=== PATIENT | female | born 1955 | race Caucasian/White ===

== ENCOUNTER 2016-10-07 16:45 | Emergency (ER) | payer OTHER ==
[~2016-10-07] VITALS: Ht 162.6 cm; Wt 85.0 kg
[~2016-10-07 16:45] MED LIST: ACET-1256 PO; ALBU0.08 NEB; CHOL100010 PO; CLC100X PO; FLNIN/ NAE; NVLGI/PEN SQ; Spiriva INH
[2016-10-07 16:53] VITALS: TEMP 36.7; Ht 162.6 cm; Wt 85.0 kg
--- NOTE | 2016-10-07 18:41 | DIAGNOSTIC IMAGING REPORT ---
ULTRASOUND RIGHT LOWER EXTREMITY VENOUS CLINICAL HISTORY: Right leg pain and swelling. COMPARISON STUDY: Right lower extremity venous ultrasound dated 04/18/2016. TECHNIQUE: Real-time, grayscale, and color Doppler sonography of the deep veins of the right lower extremity was performed from the inguinal crease to the calf. Compression and augmentation were utilized. FINDINGS: There is no sonographic evidence of deep venous thrombosis identified in the right lower extremity. The common femoral, superficial femoral, and popliteal veins are patent and normally compressible. The greater saphenous vein and the profunda femoris vein at the junction with the common femoral vein are clear. The visualized calf veins are patent. IMPRESSION: There is no sonographic evidence of deep venous thrombosis identified in the right lower extremity. Electronically signed by: Jame Batres M.D. 10/07/2016 6:39 PM Dictated Date/Time: 10/07/2016 6:38 PM
[2016-10-07 19:10] VITALS: BP 121/71; PULSE 78; O2SAT 95
--- NOTE | 2016-10-07 22:34 | EMERGENCY ROOM VISIT NOTE ---
History First contact with patient: 17:46 Chief Complaint: LEG PAIN,LEG INJURY Stated Complaint: PAIN IN LEG, LUMP History of Present Illness The patient is a 60 year old female who presents to the Emergency Room with complaints of pain in her right leg for the past 4 days. The patient feels like she has a lump behind her knee. She did not have injury or trauma to explain her symptoms. She is able to walk with a walker, which is normal for her. She does not have fever or chills. No chest pain or shortness of breath. She is on Coumadin for a history of heart issues. She does not know her INR. Her next appointment is in 2 days to have it rechecked. She does not have other complaints at rates her discomfort a 10/10. The patient is on fentanyl chronically at home. She additionally has oxycodone for breakthrough pain, which she states she has run out of. Review of Systems More than 10 systems were reviewed and otherwise negative with the exception of history of present illness. Past Medical/Surgical History Medical Problems: (1) Acute electrocardiogram changes (2) Asthma (3) Atrial fibrillation (4) Bipolar disorder (5) C. difficile colitis (6) Chronic abdominal pain (7) Chronic cor pulmonale (8) Chronic pain (9) Chronic respiratory failure (10) COPD, severe (11) Depression (12) DM type 2 (diabetes mellitus, type 2) (13) DVT (deep venous thrombosis) (14) Gastroparesis (15) GERD (gastroesophageal reflux disease) (16) HTN (hypertension) (17) Hypokalemia (18) Hypothyroidism (19) [place] toxicity (20) DARIUS on CPAP (21) Osteoarthritis Surgical Problems: (1) H/O: hysterectomy (2) Hx of appendectomy (3) Hx of cholecystectomy (4) Hx of lumpectomy (5) Hx of mitral valve repair (6) Hx of tubal ligation (7) Hx of umbilical hernia repair Family History Diabetes mellitus MOTHER FH: Crohn's disease SISTER Hypertension MOTHER Social History Smoking Status: Current Every Day Smoker Alcohol Use: none Drug Use: none Marital Status: Housing Status: lives with significant other Occupation Status: disabled Current/Historical Medications Scheduled Amitriptyline HCl (Amitriptyline HCl), 50 MG PO HS Amlodipine Besylate (Amlodipine Besylate), 10 MG PO QAM Atorvastatin (Atorvastatin Calcium), 40 MG PO HS Calcitriol (Calcitriol), 0.5 MCG PO QAM Cetirizine (Zyrtec), 10 MG PO QAM Cholecalciferol (Vitamin D), 1,000 INTER.UNIT PO QAM Colestipol HCl (Colestid), 1 GM PO BID Fentanyl (Duragesic), 1 PATCH TOP CQ72HR Fluticasone Prop/Salmeterol (Advair Diskus 250/50 60 Dose), 1 PUFF INH BID Fluticasone Propionate (Fluticasone Propionate), 2 SPRAYS RICH DAILY Furosemide (Furosemide), 40 MG PO BID Gabapentin (Gabapentin), 800 MG PO TID Insulin Aspart (Novolog Flexpen), 4 UNITS SQ AC Insulin Glargine (Lantus Solostar), 30 UNITS SC BID Levothyroxine Sodium (Synthroid), 50 MCG PO QAM Metoclopramide Hcl (Metoclopramide Hcl), 5 MG PO ACHS Metolazone (Zaroxolyn), 2.5 MG PO DAILY Metoprolol Tartrate (Lopressor) (Lopressor), 75 MG PO BID Multiple Vitamin (Multivitamin), 1 TAB PO QAM Mupirocin (Bactroban), 1 APPLN TOP BID Olanzapine (Olanzapine), 2.5 MG PO HS Oxygen (Oxygen), 3 LITERS NA CONTINOUS Pantoprazole (Pantoprazole Sodium), 40 MG PO HS Potassium Chloride Microencaps (Potassium Chloride Cr), 20 MEQ PO BID Ranitidine Hcl (Zantac), 300 MG PO HS Trazodone HCl (Trazodone HCl), 300 MG PO HS Venlafaxine Hcl (Effexor Extended Rel), 225 MG PO QAM Warfarin Sodium (Warfarin Sodium), 5 MG PO 6XWK Warfarin Sodium (Warfarin Sodium), 7.5 MG PO WK [Spiriva], 1 PUFF INH QAM Scheduled PRN Acetaminophen (Tylenol), 1,000 MG PO TID PRN for Pain Albuterol Soln (Proventil 0.083% 2.5MG/3ML), 2.5 MG NEB Q6H PRN for Wheezing Diphenoxylate/Atropine (Lomotil 2.5-0.025 mg), 1 TAB PO UD PRN for Diarrhea Docusate Sodium (Colace), 100 MG PO BID PRN for Constipation Epinephrine (Epipen), 0.3 MG IM UD PRN for ALLERGIC REACTION Hydroxyzine Pamoate (Vistaril), 25 MG PO Q6H PRN for Itching Loperamide Hcl (Imodium), 2 MG PO BID PRN for Loose Stool(s) Lorazepam (Lorazepam), 0.5 MG PO HS PRN for Anxiety Methocarbamol (Methocarbamol), 500 MG PO TID PRN for Muscle Relaxer Ondansetron (Ondansetron HCl), 8 MG PO BID PRN for Nausea Oxycodone HCl (Oxycodone HCl), 10 MG PO Q6H PRN for Pain Allergies Coded Allergies: BEE STING (Verified Allergy, Severe, SWELLING, 07/31/16) Lisinopril (Verified Allergy, Intermediate, FACE SWELLING, 07/31/16) Metronidazole (Verified Allergy, Mild, FACE SWELLING, 07/31/16) [place] (Verified Allergy, Mild, HIVES, 07/31/16) Alprazolam (Verified Allergy, Unknown, RED FACE, FACE SWELLING, 07/31/16) Lactose (Verified Adverse Reaction, Intermediate, VOMTING DIARRHEA ABDOMINAL PAIN, 07/31/16) Prednisone (Verified Adverse Reaction, Mild, unknown, 07/31/16) Colesevelam (Verified Adverse Reaction, Unknown, unknown, 07/31/16) [place] (Unverified Adverse Reaction, Unknown, jitters, 07/31/16) Uncoded Allergies: BBQ CHIPS (Allergy, Unknown, FACE SWELLING, 12/22/15) Physical Exam Vital Signs Date Time Temp Pulse Resp B/P Pulse Ox O2 Delivery O2 Flow Rate FiO2 10/07/16 19:10 78 121/71 95 10/07/16 16:53 36.7 70 18 129/74 91 Room Air Pain Rating (0-10): 3.0 Physical Exam VITALS: Vitals are noted on the nurse's note and reviewed by myself. Vital signs stable. GENERAL: Well-developed, well-nourished, white female, who is in no acute distress and resting comfortably. Patient is cooperative with the examination. HEAD: Normocephalic atraumatic. HEART: Regular rate and rhythm without murmurs gallops or rubs. LUNGS: Clear to auscultation bilaterally without wheezes, rales or rhonchi. No retractions or accessory muscle use. MUSCULOSKELETAL: No muscle atrophy, erythema, or edema noted. Mild tenderness is appreciated throughout the posterior aspect of the right leg. No palpable cord. Negative Homans sign. No significant edema noted. NEURO: Patient was alert and oriented to person place and time. CN II through XII grossly intact. Medical Decision & Procedures ER Provider Diagnostic Interpretation: ULTRASOUND RIGHT LOWER EXTREMITY VENOUS CLINICAL HISTORY: Right leg pain and swelling. COMPARISON STUDY: Right lower extremity venous ultrasound dated 04/18/2016. TECHNIQUE: Real-time, grayscale, and color Doppler sonography of the deep veins of the right lower extremity was performed from the inguinal crease to the calf. Compression and augmentation were utilized. FINDINGS: There is no sonographic evidence of deep venous thrombosis identified in the right lower extremity. The common femoral, superficial femoral, and popliteal veins are patent and normally compressible. The greater saphenous vein and the profunda femoris vein at the junction with the common femoral vein are clear. The visualized calf veins are patent. IMPRESSION: There is no sonographic evidence of deep venous thrombosis identified in the right lower extremity. ED Course Physical exam and history were performed. Nursing notes and EMR were reviewed. Patient appears to have right leg pain for the past several days. The patient does not appear toxic on exam. The patient is well-known to this facility and is on a treatment plan. Her primary concern today is for pain control and concern for DVT. She is without other significant symptoms. Ultrasound was ordered and does not show evidence of acute DVT. I discussed options of care with the patient. She does not have a DVT on ultrasound, and really is without other significant findings. I suspect much of her discomfort is chronic or musculoskeletal. The patient is on both fentanyl and oxycodone at home. I do not feel comfortable providing her additional narcotic medication without objective findings. I offered her Tylenol, and she declined. Overall the patient appears stable for discharge home. She does have an upcoming appointment in 2 days in her PCPs office, and needs to keep this appointment. She was otherwise invited back to the ER with any new, worsening, or concerning symptoms. The chart was completed utilizing [employer] Voice Recognition Software. Grammatical errors, random word insertions, pronoun errors, and incomplete sentences are an occasional consequence of this system due to software limitations, ambient noise, and hardware issues. Any formal questions or concerns about the content, text, or information contained within the body of this dictation should be directly addressed to the provider for clarification. . Medical Decision Differential diagnosis: Etiologies such as DVT, musculoskeletal, infection, joint effusion, trauma, lymphedema, idiopathic, CHF, as well as others were entertained.. Impression Primary Impression: Right leg pain Departure Information Dispostion Home / Self-Care Condition GOOD Forms HOME CARE DOCUMENTATION FORM, IMPORTANT VISIT INFORMATION Patient Instructions My [facility] Additional Instructions You were seen and evaluated today on an emergency basis only. This is not a substitute for, or an effort to provide, complete comprehensive medical care. It is not possible to recognize and treat all injuries or illnesses in a single emergency department visit. For this reason it is recommended that you followup with your primary care physician's office in the next 1-2 days for recheck of your condition. Continue your home medications as prescribed. You may take Tylenol 1000 mg every 6 hours for additional relief of pain. You are welcome to return to the emergency department anytime with new, worsening, or concerning symptoms.
[2017-02-10] MEDS ORDERED: MUPI2OIN9 TOP (09:22)
[2017-02-10] MEDS ORDERED: DPH/ PO (13:11)
[2017-02-10] MEDS ORDERED: HYDR25CA PO (14:44)
[2017-02-10] MEDS ORDERED: PRT/40 PO (15:43)
[2017-02-10] MEDS ORDERED: POTA10TA79 PO (16:01)
[2017-02-10] MEDS ORDERED: CALC0.5C17 PO (16:01)
[2017-02-10] MEDS ORDERED: ATV5X PO (16:07)
[2017-02-10] MEDS ORDERED: METO5TAB2 PO (16:07)
[2017-04-10] MEDS ORDERED: PRD20 PO (14:27)
[2017-04-10] MEDS ORDERED: PRT/40 PO (14:27)
[2017-04-10] MEDS ORDERED: NVLGIPEN SC (14:27)
[2017-04-10] MEDS ORDERED: DXY100 PO (14:27)
[2017-04-10] MEDS ORDERED: INSDGIPEN SC (14:27)
[2017-04-20] MEDS ORDERED: INSDGIPEN SC (15:50)
[2017-04-23] MEDS ORDERED: FURO-85 PO (14:29)
[2017-04-23] MEDS ORDERED: PRD20 PO (14:30)
[2017-04-23] MEDS ORDERED: DXY100 PO (14:30)
[2017-04-23] MEDS ORDERED: POTA10TA79 PO (14:30)
[2017-05-03] MEDS ORDERED: GUAI1TAB68 PO (16:30)
[2017-05-03] MEDS ORDERED: ATRINS INH (16:30)
[2017-05-03] MEDS ORDERED: XPNINS1255 INH (16:30)
[2017-05-03] MEDS ORDERED: PRD20 PO (16:54)
[2017-05-03] MEDS ORDERED: NVLGIPEN SC (16:54)
[2017-05-03] MEDS ORDERED: INSDGIPEN SC (16:54)
[2017-05-05] MEDS ORDERED: LEVO50TA PO (13:11)
== END 2016-10-07 19:05 | disposition home or self-care (01) ==
LOC: C.EDB 16:46 → C.EDA 19:05
DX: M79.604 Pain in right leg (principal); J45.909 Unspecified asthma, uncomplicated; I48.91 Unspecified atrial fibrillation; F31.9 Bipolar disorder, unspecified; J44.9 Chronic obstructive pulmonary disease, unspecified; K21.9 Gastro-esophageal reflux disease without esophagitis; I10 Essential (primary) hypertension; F17.200 Nicotine dependence, unspecified, uncomplicated; E03.9 Hypothyroidism, unspecified; Z79.01 Long term (current) use of anticoagulants

== ENCOUNTER 2016-10-18 21:04 | Emergency (ER) | payer OTHER ==
[~2016-10-18] VITALS: Ht 162.6 cm; Wt 87.0 kg
[2016-10-18 21:12] VITALS: TEMP 37.2; Ht 162.6 cm; Wt 87.0 kg
[2016-10-18] MEDS ORDERED: KETOROLAC TROMETHAMINE 30 MG/ML VIAL IV STA (21:26)
[2016-10-18] MEDS ORDERED: SODIUM CHLORIDE 0.9% 1000ML 1,000 ML IV STA (21:26)
[2016-10-18] MEDS ORDERED: ONDANSETRON INJ 2 MG/ML 2 ML VIAL IV STA (21:26)
[2016-10-18 21:55] LABS: BASO % 0.3 %; BASO ABS # 0.02 K/uL (0-0.2); COMPLETE YES; EOS % 3.3 %; HEMATOCRIT 38.1 % (37-47); IG% 0.1 %; LYMPH % 25.6 %; LYMPH ABS # 1.93 K/uL (1.2-3.4); MEAN CELL VOLUME 89.9 fL (80-100); MEAN CORPUSCULAR HEMOGLOBIN 30.7 pg (25-34); MEAN CORPUSCULAR HGB CONC 34.1 g/dl (32-36); MEAN PLATELET VOLUME 10.6 fL (7.4-10.4); MONO % 11.4 %; NEUT % 59.3 %; PLATELET COUNT 238 K/uL (130-400); RED BLOOD COUNT 4.24 M/uL (4.2-5.4); WHITE BLOOD COUNT 7.54 K/uL (4.8-10.8)
[2016-10-18 22:08] LABS: URINE APPEARANCE CLEAR (CLEAR); URINE BILIRUBIN NEG (NEG); URINE COLOR YELLOW; URINE NITRITE NEG (NEG); UROBILINOGEN NEG (NEG); ZZUR CULT IF INDIC CLEAN CATCH NO
[2016-10-18 22:11] LABS: MANUAL MICROSCOPIC REQUIRED? NO; REVIEW REQ? YES
[2016-10-18 22:14] LABS: ALKALINE PHOSPHATASE 73 U/L (45-117); ALT/SGPT 30 U/L (12-78); AST/SGOT 18 U/L (15-37); BLOOD UREA NITROGEN 18 mg/dl (7-18); BUN/CREATININE RATIO 13.6 (10-20); CARBON DIOXIDE 30 mmol/L (21-32); CHLORIDE 95 mmol/L (98-107); POTASSIUM 3.8 mmol/L (3.5-5.1); SODIUM 134 mmol/L (136-145)
[2016-10-18 22:15] LABS: GLUCOSE 357 mg/dl (70-99)
[2016-10-18] MEDS ORDERED: NovoLIN-R INSULIN PER UNIT CHARGE SC STA (22:22)
[2016-10-18 22:31] LABS: URINE EPITHELIAL CELL AUTO 20-30 /lpf (0-5)
[2016-10-18 22:44] LABS: BETA-HYDROXYBUTYRATE 0.81 mg/dL (0.2-2.81)
[2016-10-18 23:15] VITALS: BP 133/45; PULSE 71; O2SAT 93
--- NOTE | 2016-10-19 00:49 | EMERGENCY ROOM VISIT NOTE ---
History Report prepared by [place]: Tigre Parnell Under the Supervision of: Dr. Fabricio Sesay D.O. First contact with patient: 21:11 Chief Complaint: BACK PAIN Stated Complaint: FLANK PAIN History of Present Illness The patient is a 61 year old female who presents to the Emergency Room with complaints of worsening burning with urination that began this morning, several hours prior to arrival. The patient has had multiple urinary tract infections in the past, and notes that her burning with urination is similar to what she has experienced in the past. The patient is also complaining of worsening lower back and right hip pain that she has had chronically for 10 years. She states that her pain today is significantly worse. She denies any weakness or numbness in her legs. She is on 3 L of home oxygen. The patient denies headache, change in vision, fevers, chest pain, shortness of breath, nausea, vomiting, diarrhea, and melena. 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 A total of 10 systems reviewed and were otherwise negative. Past Medical & Surgical Medical Problems: (1) Acute electrocardiogram changes (2) Asthma (3) Atrial fibrillation (4) Bipolar disorder (5) C. difficile colitis (6) Chronic abdominal pain (7) Chronic cor pulmonale (8) Chronic pain (9) Chronic respiratory failure (10) COPD, severe (11) Depression (12) DM type 2 (diabetes mellitus, type 2) (13) DVT (deep venous thrombosis) (14) Gastroparesis (15) GERD (gastroesophageal reflux disease) (16) HTN (hypertension) (17) Hypokalemia (18) Hypothyroidism (19) [place] toxicity (20) DARIUS on CPAP (21) Osteoarthritis Surgical Problems: (1) H/O: hysterectomy (2) Hx of appendectomy (3) Hx of cholecystectomy (4) Hx of lumpectomy (5) Hx of mitral valve repair (6) Hx of tubal ligation (7) Hx of umbilical hernia repair Family History Diabetes mellitus MOTHER FH: Crohn's disease SISTER Hypertension MOTHER Social History Smoking Status: Current Every Day Smoker Alcohol Use: none Drug Use: none Marital Status: Housing Status: lives with significant other Occupation Status: disabled Current/Historical Medications Scheduled Amitriptyline HCl (Amitriptyline HCl), 50 MG PO HS Amlodipine Besylate (Amlodipine Besylate), 10 MG PO QAM Atorvastatin (Atorvastatin Calcium), 40 MG PO HS Calcitriol (Calcitriol), 0.5 MCG PO QAM Cetirizine (Zyrtec), 10 MG PO QAM Cholecalciferol (Vitamin D), 1,000 UNIT PO DAILY Colestipol HCl (Colestid), 1 GM PO BID Fentanyl (Duragesic), 1 PATCH TOP CQ72HR Fluticasone Prop/Salmeterol (Advair Diskus 250/50 60 Dose), 1 PUFF INH BID Furosemide (Furosemide), 40 MG PO BID Gabapentin (Gabapentin), 800 MG PO TID Insulin Glargine (Lantus Solostar), 40 UNITS SC BID Levothyroxine Sodium (Synthroid), 50 MCG PO QAM Metoclopramide Hcl (Metoclopramide Hcl), 5 MG PO ACHS Metolazone (Zaroxolyn), 2.5 MG PO DAILY Metoprolol Tartrate (Lopressor) (Lopressor), 75 MG PO BID Multiple Vitamin (Multivitamin), 1 TAB PO QAM Mupirocin (Bactroban), 1 APPLN TOP BID Olanzapine (Olanzapine), 2.5 MG PO HS Oxygen (Oxygen), 3 LITERS NA CONTINOUS Pantoprazole (Pantoprazole Sodium), 40 MG PO HS Potassium Chloride Microencaps (Potassium Chloride Cr), 20 MEQ PO BID Ranitidine Hcl (Zantac), 300 MG PO HS Tiotropium [place] (Spiriva Handihaler), 1 CAP INH DAILY Trazodone HCl (Trazodone HCl), 300 MG PO HS Venlafaxine Hcl (Effexor Extended Rel), 225 MG PO QAM Warfarin Sodium (Warfarin Sodium), 5 MG PO 6XWK Warfarin Sodium (Warfarin Sodium), 7.5 MG PO MWF Scheduled PRN Albuterol Sulf (Proventil 0.083% 2.5MG/3ML), 2.5 MG INH Q6 PRN for Wheezing Diphenoxylate/Atropine (Lomotil 2.5-0.025 mg), 1 TAB PO UD PRN for Diarrhea Epinephrine (Epipen), 0.3 MG IM UD PRN for ALLERGIC REACTION Hydroxyzine Pamoate (Vistaril), 25 MG PO Q6H PRN for Itching Loperamide Hcl (Imodium), 2 MG PO BID PRN for Loose Stool(s) Lorazepam (Lorazepam), 0.5 MG PO HS PRN for Anxiety Methocarbamol (Methocarbamol), 500 MG PO TID PRN for Muscle Relaxer Ondansetron (Ondansetron HCl), 8 MG PO BID PRN for Nausea Oxycodone HCl (Oxycodone HCl), 10 MG PO Q6H PRN for Pain Allergies Coded Allergies: BEE STING (Verified Allergy, Severe, SWELLING, 10/18/16) Lisinopril (Verified Allergy, Intermediate, FACE SWELLING, 10/18/16) Metronidazole (Verified Allergy, Mild, FACE SWELLING, 10/18/16) [place] (Verified Allergy, Mild, HIVES, 10/18/16) Alprazolam (Verified Allergy, Unknown, RED FACE, FACE SWELLING, 10/18/16) Lactose (Verified Adverse Reaction, Intermediate, VOMTING DIARRHEA ABDOMINAL PAIN, 10/18/16) Prednisone (Verified Adverse Reaction, Mild, unknown, 10/18/16) Colesevelam (Verified Adverse Reaction, Unknown, unknown, 10/18/16) [place] (Unverified Adverse Reaction, Unknown, jitters, 10/18/16) Uncoded Allergies: BBQ CHIPS (Allergy, Unknown, FACE SWELLING, 12/22/15) Physical Exam Vital Signs Date Time Temp Pulse Resp B/P Pulse Ox O2 Delivery O2 Flow Rate FiO2 10/18/16 23:15 71 20 133/45 93 Room Air 10/18/16 22:31 64 22 107/48 96 Nasal Cannula 3.0 10/18/16 21:12 37.2 71 21 92/58 94 Nasal Cannula 3.0 Physical Exam GENERAL: Patient is laying in bed, disheveled, on 3 L of nasal cannula. EYE EXAM: normal conjunctiva, PERRL and EOM's grossly intact OROPHARYNX: no exudate, no erythema, lips, buccal mucosa, and tongue normal and mucous membranes are moist NECK: supple, no nuchal rigidity, no adenopathy, non-tender LUNGS: Clear to auscultation. Normal chest wall mechanics HEART: no murmurs, S1 normal and S2 normal ABDOMEN: abdomen soft, non-tender, normo-active bowel sounds, no masses, no rebound or guarding. BACK: Back is symmetrical on inspection and there is no deformity, no midline tenderness, no CVA tenderness. Old lower lumbar incision with tenderness on palpation. PELVIS: Acute tenderness to palpation of right hip. SKIN: no rashes and no bruising UPPER EXTREMITIES: upper extremities are grossly normal. LOWER EXTREMITIES: No pitting edema. Flexion and extension at the hip knee ankle and EHL 5/ B/l. Gross sensations intact. Patellar and Achilles reflexes are 1 out 4 bilateral. Significant pain on palpation of the right hip. Patient notes that this is old. NEURO EXAM: Normal sensorium, cranial nerves II-XII intact, normal speech, no weakness of arms, no weakness of legs. Medical Decision & Procedures Laboratory Results 10/18/16 21:38 Red Blood Count 4.24, Mean Corpuscular Volume 89.9, Mean Corpuscular Hemoglobin 30.7, Mean Corpuscular Hemoglobin Concent 34.1, Mean Platelet Volume 10.6, Neutrophils (%) (Auto) 59.3, Lymphocytes (%) (Auto) 25.6, Monocytes (%) (Auto) 11.4, Eosinophils (%) (Auto) 3.3, Basophils (%) (Auto) 0.3, Neutrophils # (Auto ) 4.47, Lymphocytes # (Auto) 1.93, Monocytes # (Auto) 0.86, Eosinophils # (Auto ) 0.25, Basophils # (Auto) 0.02 10/18/16 21:38 Test 10/18/16 21:38 10/18/16 21:55 10/18/16 22:51 White Blood Count 7.54 K/uL (4.8-10.8) Red Blood Count 4.24 M/uL (4.2-5.4) Hemoglobin 13.0 g/dL (12.0-16.0) Hematocrit 38.1 % (37-47) Mean Corpuscular Volume 89.9 fL (80-100) Mean Corpuscular Hemoglobin 30.7 pg (25-34) Mean Corpuscular Hemoglobin Concent 34.1 g/dl (32-36) Platelet Count 238 K/uL (130-400) Mean Platelet Volume 10.6 fL (7.4-10.4) Neutrophils (%) (Auto) 59.3 % Lymphocytes (%) (Auto) 25.6 % Monocytes (%) (Auto) 11.4 % Eosinophils (%) (Auto) 3.3 % Basophils (%) (Auto) 0.3 % Neutrophils # (Auto) 4.47 K/uL (1.4-6.5) Lymphocytes # (Auto) 1.93 K/uL (1.2-3.4) Monocytes # (Auto) 0.86 K/uL (0.11-0.59) Eosinophils # (Auto) 0.25 K/uL (0-0.5) Basophils # (Auto) 0.02 K/uL (0-0.2) RDW Standard Deviation 46.5 fL (36.4-46.3) RDW Coefficient of Variation 14.1 % (11.5-14.5) Immature Granulocyte % (Auto) 0.1 % Immature Granulocyte # (Auto) 0.01 K/uL (0.00-0.02) Anion Gap 9.0 mmol/L (3-11) Est Creatinine Clear Calc Drug Dose 49.1 ml/min Estimated GFR () 51.6 Estimated GFR (Non- 44.6 BUN/Creatinine Ratio 13.6 (10-20) Calcium Level 9.0 mg/dl (8.5-10.1) Total Bilirubin 0.3 mg/dl (0.2-1) Direct Bilirubin < 0.1 mg/dl (0-0.2) Aspartate Amino Transf (AST/SGOT) 18 U/L (15-37) Alanine Aminotransferase (ALT/SGPT) 30 U/L (12-78) Alkaline Phosphatase 73 U/L (45-117) Total Protein 6.6 gm/dl (6.4-8.2) Albumin 3.1 gm/dl (3.4-5.0) Lipase 236 U/L (73-393) Beta-Hydroxybutyric Acid 0.81 mg/dL (0.2-2.81) Urine Color YELLOW Urine Appearance CLEAR (CLEAR) Urine pH 6.0 (4.5-7.5) Urine Specific [place] 1.000 (1.000-1.030) Urine Protein NEG (NEG) Urine Glucose (UA) 2+ (NEG) Urine Ketones NEG (NEG) Urine Occult Blood NEG (NEG) Urine Nitrite NEG (NEG) Urine Bilirubin NEG (NEG) Urine Urobilinogen NEG (NEG) Urine Leukocyte Esterase TRACE (NEG) Urine WBC (Auto) 1-5 /hpf (0-5) Urine RBC (Auto) 0-4 /hpf (0-4) Urine Hyaline Casts (Auto) 0 /lpf (0-5) Urine Epithelial Cells (Auto) 20-30 /lpf (0-5) Urine Bacteria (Auto) NEG (NEG) Bedside Glucose 347 mg/dl (70-90) Laboratory results per my review. Medications Administered Medications (Trade) Dose Ordered Sig/Artemio Route Start Time Stop Time Status Last Admin Dose Admin Ketorolac Tromethamine (Toradol Inj) 30 mg NOW STAT IV 10/18/16 21:26 10/18/16 21:27 DC 10/18/16 21:52 30 MG Ondansetron HCl 4 mg 4 mg NOW STAT IV 10/18/16 21:26 10/18/16 21:27 DC 10/18/16 21:52 4 MG Sodium Chloride (Nss 1000ml) 1,000 ml @ 999 mls/hr Q1H1M STAT IV 10/18/16 21:26 10/18/16 22:26 DC 10/18/16 21:52 999 MLS/HR Insulin Human Regular (novoLIN-R U-100 PER UNIT) 4 units NOW STAT SC 10/18/16 22:22 10/18/16 22:23 DC 10/18/16 22:29 4 UNITS ED Course ED COURSE: Vital signs were reviewed and showed hypotensive vitals The patients medical record was reviewed The above diagnostic studies were performed and reviewed. ED treatments and interventions as stated above. 3: The patient was evaluated in room C10. A complete history and physical examination was performed. 6: Ordered Sodium Chloride 1000 mL @ 999 mL/hr Iv, Zofran 4 mg IV, Toradol 30 mg IV. 2222: Ordered Regular Human Insulin 4 units SC. 2300: The patient is denying any further imaging at this time. Her back pain has resolved and she is ready to go home 215: Upon reevaluation, the patient is feeling better, and her back pain has improved.I discussed my findings with the patient and she understands and agrees with the treatment plan. Based on the patients age, coexisting illnesses, exam and lab findings the decision to treat as an outpatient was made. The patient remained stable while under my care. The patient appeared well at the time of discharge. Medical Decision Differential diagnosis: Etiologies such as musculoskeletal, disc herniation, fracture, aortic disease, metastatic disease, cord compression, discitis, infection, renal colic, gastrointestinal, acute exacerbation of chronic back pain, sciatica, cauda equina, as well as others were entertained. The patient's history was concerning for back pain. Patient notes that this back pain has been present for the past 10 years and does radiate into her right hip. Nothing has changed. She denies any new weakness or numbness. No saddle paresthesias. No fevers. Neurologic exam is complete intact. No significant stenosis or anemia. BMP is unremarkable. BSG is elevated 550. She is a diabetic. Bilirubin along with LFTs and lipase is normal. No ketones in the urine. UA is unremarkable. Recommended x-rays the patient declined. She is given a dose of Toradol and requested to leave as her pain was significant improved. She was given a dose of insulin as well as she was hyperglycemic. She was instructed check her blood sugars 2 hours from this injection and not good at bedside prior to this. Patient's blood pressure improved as it was low lactate this was secondary to fentanyl patch and attentive milligrams of oxine and she took just prior to arrival. This is why did not give her any narcotics which is what she initially requested. Impression Primary Impression: Low back pain Additional Impressions: Dysuria Hyperglycemia Scribe Attestation The scribe's documentation has been prepared under my direction and personally reviewed by me in its entirety. I confirm that the note above accurately reflects all work, treatment, procedures, and medical decision making performed by me. Departure Information Dispostion Home / Self-Care Referrals Manoj Goins D.O. (PCP) Forms HOME CARE DOCUMENTATION FORM, IMPORTANT VISIT INFORMATION Patient Instructions My [facility] Additional Instructions Please follow up with your primary care doctor with in the next 24 hours. Any worsening of your symptoms, please return to the ED immediately. This includes weakness or numbness in her legs, numbness in her groins, unable to move your bowels, worsening pain, passing out, fevers greater than 100.4, or any other concerning signs or symptoms from your standpoint. Please check your sugars later tonight within 2 hours of discharge. Please do not go to bed prior to doing this. Problem Qualifiers Primary Impression: Low back pain Chronicity: chronic Back pain laterality: midline Sciatica presence: without sciatica Qualified Codes: M54.5 - Low back pain; G89.29 - Other chronic pain
[2017-02-10] MEDS ORDERED: MUPI2OIN9 TOP (09:22)
[2017-02-10] MEDS ORDERED: DPH/ PO (13:11)
[2017-02-10] MEDS ORDERED: HYDR25CA PO (14:44)
[2017-02-10] MEDS ORDERED: PRT/40 PO (15:43)
[2017-02-10] MEDS ORDERED: CALC0.5C17 PO (16:01)
[2017-02-10] MEDS ORDERED: POTA10TA79 PO (16:01)
[2017-02-10] MEDS ORDERED: METO5TAB2 PO (16:07)
[2017-02-10] MEDS ORDERED: ATV5X PO (16:07)
[2017-04-10] MEDS ORDERED: DXY100 PO (14:27)
[2017-04-10] MEDS ORDERED: PRT/40 PO (14:27)
[2017-04-10] MEDS ORDERED: NVLGIPEN SC (14:27)
[2017-04-10] MEDS ORDERED: INSDGIPEN SC (14:27)
[2017-04-10] MEDS ORDERED: PRD20 PO (14:27)
[2017-04-20] MEDS ORDERED: INSDGIPEN SC (15:50)
[2017-04-23] MEDS ORDERED: FURO-85 PO (14:29)
[2017-04-23] MEDS ORDERED: PRD20 PO (14:30)
[2017-04-23] MEDS ORDERED: POTA10TA79 PO (14:30)
[2017-04-23] MEDS ORDERED: DXY100 PO (14:30)
[2017-05-03] MEDS ORDERED: GUAI1TAB68 PO (16:30)
[2017-05-03] MEDS ORDERED: ATRINS INH (16:30)
[2017-05-03] MEDS ORDERED: XPNINS1255 INH (16:30)
[2017-05-03] MEDS ORDERED: NVLGIPEN SC (16:54)
[2017-05-03] MEDS ORDERED: INSDGIPEN SC (16:54)
[2017-05-03] MEDS ORDERED: PRD20 PO (16:54)
[2017-05-05] MEDS ORDERED: LEVO50TA PO (13:11)
== END 2016-10-18 23:15 | disposition home or self-care (01) ==
LOC: EDBD 21:04 → C.EDC 21:05
DX: M54.5 Low back pain (principal); R30.0 Dysuria; E11.65 Type 2 diabetes mellitus with hyperglycemia; J45.909 Unspecified asthma, uncomplicated; I48.91 Unspecified atrial fibrillation; F31.9 Bipolar disorder, unspecified; K21.9 Gastro-esophageal reflux disease without esophagitis; E03.9 Hypothyroidism, unspecified; G47.33 Obstructive sleep apnea (adult) (pediatric); J44.9 Chronic obstructive pulmonary disease, unspecified; F17.200 Nicotine dependence, unspecified, uncomplicated; Z90.49 Acquired absence of other specified parts of digestive tract; Z98.51 Tubal ligation status

== ENCOUNTER 2016-11-10 16:13 | Emergency (ER) | payer OTHER ==
[~2016-11-10] VITALS: Ht 162.6 cm; Wt 83.5 kg
[2016-11-10 16:28] VITALS: TEMP 37.1; Ht 162.6 cm; Wt 83.5 kg
[2016-11-10] MEDS ORDERED: NYSTATIN POWDER 15GM BTL EXT ONE (17:00)
[2016-11-10] MEDS ORDERED: NYST100016 TOP (17:02)
[2016-11-10 18:05] VITALS: BP 136/47; PULSE 73; O2SAT 97
--- NOTE | 2016-11-10 20:30 | EMERGENCY ROOM VISIT NOTE ---
History First contact with patient: 16:32 Chief Complaint: RASH Stated Complaint: RASH BETWEEN BELLY AND LEG History of Present Illness The patient is a 61 year old female who presents to the Emergency Room with complaints of rash on her left side low abdomen. The patient states the rash has been getting worse over the past 3-4 days. It is quite painful to touch. The patient does not have injury or trauma. No fever or chills. She rates her discomfort a 7/10. She has tried to keep the area dry with tissues, but has not been successful. Review of Systems More than 10 systems were reviewed and otherwise negative with the exception of history of present illness. Past Medical/Surgical History Medical Problems: (1) Acute electrocardiogram changes (2) Asthma (3) Atrial fibrillation (4) Bipolar disorder (5) C. difficile colitis (6) Chronic abdominal pain (7) Chronic cor pulmonale (8) Chronic pain (9) Chronic respiratory failure (10) COPD, severe (11) Depression (12) DM type 2 (diabetes mellitus, type 2) (13) DVT (deep venous thrombosis) (14) Gastroparesis (15) GERD (gastroesophageal reflux disease) (16) HTN (hypertension) (17) Hypokalemia (18) Hypothyroidism (19) [place] toxicity (20) DARIUS on CPAP (21) Osteoarthritis Surgical Problems: (1) H/O: hysterectomy (2) Hx of appendectomy (3) Hx of cholecystectomy (4) Hx of lumpectomy (5) Hx of mitral valve repair (6) Hx of tubal ligation (7) Hx of umbilical hernia repair Family History Diabetes mellitus MOTHER FH: Crohn's disease SISTER Hypertension MOTHER Social History Smoking Status: Current Every Day Smoker Alcohol Use: none Drug Use: none Marital Status: Housing Status: lives with significant other Occupation Status: disabled Current/Historical Medications Scheduled Amitriptyline HCl (Amitriptyline HCl), 50 MG PO HS Amlodipine Besylate (Amlodipine Besylate), 10 MG PO QAM Atorvastatin (Atorvastatin Calcium), 40 MG PO HS Calcitriol (Calcitriol), 0.5 MCG PO QAM Cetirizine (Zyrtec), 10 MG PO QAM Cholecalciferol (Vitamin D), 1,000 UNIT PO DAILY Colestipol HCl (Colestid), 1 GM PO BID Fentanyl (Duragesic), 1 PATCH TOP CQ72HR Fluticasone Prop/Salmeterol (Advair Diskus 250/50 60 Dose), 1 PUFF INH BID Furosemide (Furosemide), 40 MG PO BID Gabapentin (Gabapentin), 800 MG PO TID Insulin Glargine (Lantus Solostar), 40 UNITS SC BID Levothyroxine Sodium (Synthroid), 50 MCG PO QAM Metoclopramide Hcl (Metoclopramide Hcl), 5 MG PO ACHS Metolazone (Zaroxolyn), 2.5 MG PO DAILY Metoprolol Tartrate (Lopressor) (Lopressor), 75 MG PO BID Multiple Vitamin (Multivitamin), 1 TAB PO QAM Mupirocin (Bactroban), 1 APPLN TOP BID Nystatin (Topical) (Nyamyc), 1 APPLN TOP TID Olanzapine (Olanzapine), 2.5 MG PO HS Oxygen (Oxygen), 3 LITERS NA CONTINOUS Pantoprazole (Pantoprazole Sodium), 40 MG PO HS Potassium Chloride Microencaps (Potassium Chloride Cr), 20 MEQ PO BID Ranitidine Hcl (Zantac), 300 MG PO HS Tiotropium [place] (Spiriva Handihaler), 1 CAP INH DAILY Trazodone HCl (Trazodone HCl), 300 MG PO HS Venlafaxine Hcl (Effexor Extended Rel), 225 MG PO QAM Warfarin Sodium (Warfarin Sodium), 5 MG PO 6XWK Warfarin Sodium (Warfarin Sodium), 7.5 MG PO MWF Scheduled PRN Albuterol Sulf (Proventil 0.083% 2.5MG/3ML), 2.5 MG INH Q6 PRN for Wheezing Diphenoxylate/Atropine (Lomotil 2.5-0.025 mg), 1 TAB PO UD PRN for Diarrhea Epinephrine (Epipen), 0.3 MG IM UD PRN for ALLERGIC REACTION Hydroxyzine Pamoate (Vistaril), 25 MG PO Q6H PRN for Itching Loperamide Hcl (Imodium), 2 MG PO BID PRN for Loose Stool(s) Lorazepam (Lorazepam), 0.5 MG PO HS PRN for Anxiety Methocarbamol (Methocarbamol), 500 MG PO TID PRN for Muscle Relaxer Ondansetron (Ondansetron HCl), 8 MG PO BID PRN for Nausea Oxycodone HCl (Oxycodone HCl), 10 MG PO Q6H PRN for Pain Allergies Coded Allergies: BEE STING (Verified Allergy, Severe, SWELLING, 11/10/16) Lisinopril (Verified Allergy, Intermediate, FACE SWELLING, 11/10/16) Metronidazole (Verified Allergy, Mild, FACE SWELLING, 11/10/16) [place] (Verified Allergy, Mild, HIVES, 11/10/16) Alprazolam (Verified Allergy, Unknown, RED FACE, FACE SWELLING, 11/10/16) Lactose (Verified Adverse Reaction, Intermediate, VOMTING DIARRHEA ABDOMINAL PAIN, 11/10/16) Prednisone (Verified Adverse Reaction, Mild, unknown, 11/10/16) Colesevelam (Verified Adverse Reaction, Unknown, unknown, 11/10/16) [place] (Unverified Adverse Reaction, Unknown, jitters, 11/10/16) Uncoded Allergies: BBQ CHIPS (Allergy, Unknown, FACE SWELLING, 12/22/15) Physical Exam Vital Signs Date Time Temp Pulse Resp B/P Pulse Ox O2 Delivery O2 Flow Rate FiO2 11/10/16 18:05 73 18 136/47 97 11/10/16 16:28 37.1 70 18 129/75 93 Room Air Pain Rating (0-10): 0 Physical Exam VITALS: Vitals are noted on the nurse's note and reviewed by myself. Vital signs stable. GENERAL: Well-developed, well-nourished, white female, who is in no acute distress and resting comfortably. Patient is cooperative with the examination. HEAD: Normocephalic atraumatic. HEART: Regular rate and rhythm without murmurs gallops or rubs. LUNGS: Clear to auscultation bilaterally without wheezes, rales or rhonchi. No retractions or accessory muscle use. SKIN: The skin was with a 5 similar diameter patch along the left low abdomen in the pannus. This area is with an erythematous base and is wet in appearance. No distinct evidence of cellulitis or abscess. Medical Decision & Procedures Medications Administered Medications (Trade) Dose Ordered Sig/Artemio Route Start Time Stop Time Status Last Admin Dose Admin Nystatin (Mycostatin Powder) 1 appln NOW ONCE EXT 11/10/16 17:00 11/10/16 17:01 DC 11/10/16 17:00 1 APPLN ED Course Physical exam and history were performed. Nursing notes and EMR were reviewed. Patient appears to have a rash on her left lower abdomen near her pannus. On examination this does appear very wet in nature. This is not consistent with a cellulitis, and is more closely related to a fungal or even possibly a yeastlike infection. Nystatin powder was placed here in the department. I will give the patient a prescription of more of the same. She really needs to follow with her primary care physician this week for further evaluation of this rash. She is diabetic and needs to watch her sugar closely. She was otherwise invited back to the ER with any new, worsening, or concerning symptoms. The chart was completed utilizing [employer] Speech Voice Recognition Software. Grammatical errors, random word insertions, pronoun errors, and incomplete sentences are an occasional consequence of this system due to software limitations, ambient noise, and hardware issues. Any formal questions or concerns about the content, text, or information contained within the body of this dictation should be directly addressed to the provider for clarification. . Medical Decision Differential diagnosis: Etiologies such as contact dermatitis, viral exanthem, urticaria, allergic reaction, Hassan-Sanjeev syndrome, toxic epidermal necrolysis, erythema multiforme, cellulitis, scabies, HSV, varicella, zoster, eczema, staph scalded skin syndrome, fungal infection, as well as others were entertained. Impression Primary Impression: Rash Departure Information Dispostion Home / Self-Care Condition GOOD Prescriptions Nystatin (Topical) ([facility]) 100,000 Unit/Gm Pow 1 APPLN TOP TID for 14 Days, #60 GM 2 Refills Prov: Chico Ritter PA-C 11/10/16 Forms HOME CARE DOCUMENTATION FORM, IMPORTANT VISIT INFORMATION Patient Instructions My [facility] Additional Instructions You were seen and evaluated today on an emergency basis only. This is not a substitute for, or an effort to provide, complete comprehensive medical care. It is not possible to recognize and treat all injuries or illnesses in a single emergency department visit. For this reason it is recommended that you followup with your family doctor in the next 2-3 days for recheck of your condition. Apply nystatin powder to the affected area 2-3 times daily. You are welcome to return to the emergency department anytime with new, worsening, or concerning symptoms.
[2017-02-10] MEDS ORDERED: MUPI2OIN9 TOP (09:22)
[2017-02-10] MEDS ORDERED: DPH/ PO (13:11)
[2017-02-10] MEDS ORDERED: HYDR25CA PO (14:44)
[2017-02-10] MEDS ORDERED: PRT/40 PO (15:43)
[2017-02-10] MEDS ORDERED: POTA10TA79 PO (16:01)
[2017-02-10] MEDS ORDERED: CALC0.5C17 PO (16:01)
[2017-02-10] MEDS ORDERED: ATV5X PO (16:07)
[2017-02-10] MEDS ORDERED: METO5TAB2 PO (16:07)
[2017-04-10] MEDS ORDERED: NVLGIPEN SC (14:27)
[2017-04-10] MEDS ORDERED: PRT/40 PO (14:27)
[2017-04-10] MEDS ORDERED: INSDGIPEN SC (14:27)
[2017-04-10] MEDS ORDERED: PRD20 PO (14:27)
[2017-04-10] MEDS ORDERED: DXY100 PO (14:27)
[2017-04-20] MEDS ORDERED: INSDGIPEN SC (15:50)
[2017-04-23] MEDS ORDERED: FURO-85 PO (14:29)
[2017-04-23] MEDS ORDERED: DXY100 PO (14:30)
[2017-04-23] MEDS ORDERED: PRD20 PO (14:30)
[2017-04-23] MEDS ORDERED: POTA10TA79 PO (14:30)
[2017-05-03] MEDS ORDERED: ATRINS INH (16:30)
[2017-05-03] MEDS ORDERED: XPNINS1255 INH (16:30)
[2017-05-03] MEDS ORDERED: GUAI1TAB68 PO (16:30)
[2017-05-03] MEDS ORDERED: PRD20 PO (16:54)
[2017-05-03] MEDS ORDERED: NVLGIPEN SC (16:54)
[2017-05-03] MEDS ORDERED: INSDGIPEN SC (16:54)
[2017-05-05] MEDS ORDERED: LEVO50TA PO (13:11)
== END 2016-11-10 18:05 | disposition home or self-care (01) ==
LOC: C.EDB 16:14 → C.EDD 18:05
DX: R21 Rash and other nonspecific skin eruption (principal); J45.909 Unspecified asthma, uncomplicated; I48.91 Unspecified atrial fibrillation; F31.9 Bipolar disorder, unspecified; J44.9 Chronic obstructive pulmonary disease, unspecified; E11.9 Type 2 diabetes mellitus without complications; K21.9 Gastro-esophageal reflux disease without esophagitis; I10 Essential (primary) hypertension; E03.9 Hypothyroidism, unspecified; Z90.710 Acquired absence of both cervix and uterus; F17.200 Nicotine dependence, unspecified, uncomplicated; Z79.4 Long term (current) use of insulin

== ENCOUNTER 2016-12-21 22:52 | Emergency (ER) | payer OTHER ==
[~2016-12-21] VITALS: Ht 162.6 cm; Wt 93.6 kg
[~2016-12-21 22:52] MED LIST changes: -ACET-1256 PO; -ALBU0.08 NEB; -CHOL100010 PO; -CLC100X PO; -FLNIN/ NAE; -NVLGI/PEN SQ; +NYST100016 TOP; -Spiriva INH
[2016-12-21 23:00] VITALS: TEMP 36.8; Ht 162.6 cm; Wt 93.6 kg
--- NOTE | 2016-12-21 23:34 | EMERGENCY ROOM VISIT NOTE ---
History Report prepared by [place]: Franco Blake Under the Supervision of: Dr. Mary Walton D.O. First contact with patient: 23:22 Chief Complaint: OTHER COMPLAINT Stated Complaint: AB PAIN, HEADACHE, DIARRHEA History of Present Illness The patient is a 61 year old female who presents to the Emergency Room with complaints of persistent diarrhea since 1300 today. The patient also complains of abdominal pain starting at 1300. She had Zofran and Imodium at home without relief. The patient has a history of C. Diff, with her last episode being about five years ago. The patient drank some water today but has not had an appetite for food. She denies any sick contacts currently. She is s/p cholecystectomy, appendectomy, hysterectomy, , and herniorrhaphy. She has a history of IBS. The patient has also had intermittent shortness of breath for the past two days, especially with exertion. The patient normally experiences shortness of breath with exertion as she has a history of COPD. She wears oxygen at home. EMS notes that the patient was not wearing oxygen upon their arrival, however the patient states that she wears it most of the time. She is not currently feeling more short of breath than baseline. She also complains of a cough. She denies urinary symptoms, leg pain or swelling. Source of History: patient Onset: 1300 today Position: other (GI) Quality: other (diarrhea) Timing: other (persistent) Associated Symptoms: + abdominal pain Review of Systems She denies any fever, chills, upper respiratory symptoms, or cough. She denies any dizziness lightheadedness or headaches. She denies any chest pain, shortness of breath, nausea, vomiting, or diaphoresis. She denies any constipation or urinary symptoms. All other systems were reviewed and were negative. Past Medical & Surgical Medical Problems: (1) Acute electrocardiogram changes (2) Asthma (3) Atrial fibrillation (4) Bipolar disorder (5) C. difficile colitis (6) Chronic abdominal pain (7) Chronic cor pulmonale (8) Chronic pain (9) Chronic respiratory failure (10) COPD, severe (11) Depression (12) DM type 2 (diabetes mellitus, type 2) (13) DVT (deep venous thrombosis) (14) Gastroparesis (15) GERD (gastroesophageal reflux disease) (16) HTN (hypertension) (17) Hypokalemia (18) Hypothyroidism (19) [place] toxicity (20) DARIUS on CPAP (21) Osteoarthritis Surgical Problems: (1) H/O: hysterectomy (2) Hx of appendectomy (3) Hx of cholecystectomy (4) Hx of lumpectomy (5) Hx of mitral valve repair (6) Hx of tubal ligation (7) Hx of umbilical hernia repair Family History Diabetes mellitus MOTHER FH: Crohn's disease SISTER Hypertension MOTHER Social History Smoking Status: Current Every Day Smoker Alcohol Use: none Drug Use: none Marital Status: Housing Status: lives with significant other Occupation Status: disabled Current/Historical Medications Scheduled Amitriptyline HCl (Amitriptyline HCl), 50 MG PO HS Amlodipine Besylate (Amlodipine Besylate), 10 MG PO QAM Atorvastatin (Atorvastatin Calcium), 40 MG PO HS Calcitriol (Calcitriol), 0.5 MCG PO QAM Cetirizine (Zyrtec), 10 MG PO QAM Cholecalciferol (Vitamin D), 1,000 UNIT PO DAILY Colestipol HCl (Colestid), 1 GM PO BID Fentanyl (Duragesic), 1 PATCH TOP CQ72HR Fluticasone Prop/Salmeterol (Advair Diskus 250/50 60 Dose), 1 PUFF INH BID Furosemide (Furosemide), 40 MG PO BID Gabapentin (Gabapentin), 800 MG PO TID Insulin Glargine (Lantus Solostar), 40 UNITS SC BID Levothyroxine Sodium (Synthroid), 50 MCG PO QAM Metoclopramide Hcl (Metoclopramide Hcl), 5 MG PO ACHS Metolazone (Zaroxolyn), 2.5 MG PO DAILY Metoprolol Tartrate (Lopressor) (Lopressor), 75 MG PO BID Multiple Vitamin (Multivitamin), 1 TAB PO QAM Mupirocin (Bactroban), 1 APPLN TOP BID Olanzapine (Olanzapine), 2.5 MG PO HS Oxygen (Oxygen), 3 LITERS NA CONTINOUS Pantoprazole (Pantoprazole Sodium), 40 MG PO HS Potassium Chloride Microencaps (Potassium Chloride Cr), 20 MEQ PO BID Ranitidine Hcl (Zantac), 300 MG PO HS Tiotropium [place] (Spiriva Handihaler), 1 CAP INH DAILY Trazodone HCl (Trazodone HCl), 300 MG PO HS Venlafaxine Hcl (Effexor Extended Rel), 225 MG PO QAM Warfarin Sodium (Warfarin Sodium), 5 MG PO 6XWK Warfarin Sodium (Warfarin Sodium), 7.5 MG PO MWF Scheduled PRN Albuterol Sulf (Proventil 0.083% 2.5MG/3ML), 2.5 MG INH Q6 PRN for Wheezing Diphenoxylate/Atropine (Lomotil 2.5-0.025 mg), 1 TAB PO UD PRN for Diarrhea Epinephrine (Epipen), 0.3 MG IM UD PRN for ALLERGIC REACTION Hydroxyzine Pamoate (Vistaril), 25 MG PO Q6H PRN for Itching Loperamide Hcl (Imodium), 2 MG PO BID PRN for Loose Stool(s) Lorazepam (Lorazepam), 0.5 MG PO HS PRN for Anxiety Methocarbamol (Methocarbamol), 500 MG PO TID PRN for Muscle Relaxer Ondansetron (Ondansetron HCl), 8 MG PO BID PRN for Nausea Oxycodone HCl (Oxycodone HCl), 10 MG PO Q6H PRN for Pain Allergies Coded Allergies: BEE STING (Verified Allergy, Severe, SWELLING, 12/21/16) Lisinopril (Verified Allergy, Intermediate, FACE SWELLING, 12/21/16) Metronidazole (Verified Allergy, Mild, FACE SWELLING, 12/21/16) [place] (Verified Allergy, Mild, HIVES, 12/21/16) Alprazolam (Verified Allergy, Unknown, RED FACE, FACE SWELLING, 12/21/16) Lactose (Verified Adverse Reaction, Intermediate, VOMTING DIARRHEA ABDOMINAL PAIN, 12/21/16) Prednisone (Verified Adverse Reaction, Mild, unknown, 12/21/16) Colesevelam (Verified Adverse Reaction, Unknown, unknown, 12/21/16) [place] (Unverified Adverse Reaction, Unknown, jitters, 12/21/16) Uncoded Allergies: BBQ CHIPS (Allergy, Unknown, FACE SWELLING, 12/22/15) Physical Exam Vital Signs Date Time Temp Pulse Resp B/P Pulse Ox O2 Delivery O2 Flow Rate FiO2 12/22/16 04:15 59 16 102/69 97 Nasal Cannula 3.0 12/22/16 02:50 62 20 111/47 100 Nasal Cannula 3.0 12/22/16 02:24 98 Nasal Cannula 3.0 12/22/16 01:41 84 20 108/49 99 Nasal Cannula 3.0 12/21/16 23:00 36.8 73 18 118/61 97 Room Air Physical Exam HEENT: Head - normocephalic and atraumatic Pupils are equal, round, and reactive to light. Extraocular eye muscles are intact, and sclera are anicteric. Nose - moist nasal mucosa without discharge. Mouth - extremely dry buccal mucosa. Oropharynx is nonerythematous and there is no tonsillar exudate or edema noted. Neck: Supple; no JVD, nuchal rigidity, cervical lymphadenopathy, or auscultated bruits. Heart: Regular rate and rhythm. There is a normal S1 and S2 with no murmurs, clicks, or gallops appreciated. Lungs: Clear to auscultation bilaterally with no wheezes, rales, or rhonchi. Abdomen: Diffusely tender with palpation. Soft, nondistended, with good bowel sounds. There are no palpable pulsatile masses or hepatosplenomegaly. There is no guarding, rigidity, or rebound noted. Extremities: Areas of excoriation on lower legs with scabs and mild surrounding erythema. Petechia over both legs. There are easily palpable peripheral pulses. Skin: warm and dry with good turgor. Medical Decision & Procedures ER Provider Diagnostic Interpretation: X-ray results as stated below per interpretation by me. Obstruction Series: Moderate colonic fecal retention Questionable small air fluid levels Cardiomegaly. Radiology results as stated below per my review and the radiologist's interpretation: CT ABDOMEN & PELVIS: Comparison with . 2.8 cm left adrenal nodule has increased in size from prior study 12/16/12 that was 2.6 cm. Bilateral too small characterize renal hypodenisites. No obstructive uropathy. Status appendectomy and cholecystectomy with no colitis diverticulitis or bowel obstruction. No free air or free fluid or other acute disease. Subsegment atelectasis suspected at the posterior lung bases. Small amount of contrast in the distal esophagus may be from gastroesophageal reflux disease. Radiologist: Raymond Bobby MD. Laboratory Results 12/21/16 23:57 Red Blood Count 3.91, Mean Corpuscular Volume 94.1, Mean Corpuscular Hemoglobin 32.0, Mean Corpuscular Hemoglobin Concent 34.0, Mean Platelet Volume 10.5, Neutrophils (%) (Auto) 80.4, Lymphocytes (%) (Auto) 10.0, Monocytes (%) (Auto) 7.7, Eosinophils (%) (Auto) 1.5, Basophils (%) (Auto) 0.2, Neutrophils # (Auto) 10.48, Lymphocytes # (Auto) 1.31, Monocytes # (Auto) 1.00, Eosinophils # (Auto) 0.20, Basophils # (Auto) 0.03 12/21/16 23:57 Test 12/21/16 23:57 12/22/16 01:48 White Blood Count 13.05 K/uL (4.8-10.8) Red Blood Count 3.91 M/uL (4.2-5.4) Hemoglobin 12.5 g/dL (12.0-16.0) Hematocrit 36.8 % (37-47) Mean Corpuscular Volume 94.1 fL (80-100) Mean Corpuscular Hemoglobin 32.0 pg (25-34) Mean Corpuscular Hemoglobin Concent 34.0 g/dl (32-36) Platelet Count 220 K/uL (130-400) Mean Platelet Volume 10.5 fL (7.4-10.4) Neutrophils (%) (Auto) 80.4 % Lymphocytes (%) (Auto) 10.0 % Monocytes (%) (Auto) 7.7 % Eosinophils (%) (Auto) 1.5 % Basophils (%) (Auto) 0.2 % Neutrophils # (Auto) 10.48 K/uL (1.4-6.5) Lymphocytes # (Auto) 1.31 K/uL (1.2-3.4) Monocytes # (Auto) 1.00 K/uL (0.11-0.59) Eosinophils # (Auto) 0.20 K/uL (0-0.5) Basophils # (Auto) 0.03 K/uL (0-0.2) RDW Standard Deviation 45.7 fL (36.4-46.3) RDW Coefficient of Variation 13.2 % (11.5-14.5) Immature Granulocyte % (Auto) 0.2 % Immature Granulocyte # (Auto) 0.03 K/uL (0.00-0.02) Anion Gap 6.0 mmol/L (3-11) Est Creatinine Clear Calc Drug Dose 60.3 ml/min Estimated GFR () 63.2 Estimated GFR (Non- 54.5 BUN/Creatinine Ratio 17.0 (10-20) Calcium Level 8.7 mg/dl (8.5-10.1) Total Bilirubin 0.3 mg/dl (0.2-1) Direct Bilirubin < 0.1 mg/dl (0-0.2) Aspartate Amino Transf (AST/SGOT) 25 U/L (15-37) Alanine Aminotransferase (ALT/SGPT) 35 U/L (12-78) Alkaline Phosphatase 72 U/L (45-117) Total Protein 6.5 gm/dl (6.4-8.2) Albumin 3.1 gm/dl (3.4-5.0) Lipase 362 U/L (73-393) Urine Color YELLOW Urine Appearance CLEAR (CLEAR) Urine pH 5.5 (4.5-7.5) Urine Specific [place] 1.007 (1.000-1.030) Urine Protein NEG (NEG) Urine Glucose (UA) 2+ (NEG) Urine Ketones NEG (NEG) Urine Occult Blood NEG (NEG) Urine Nitrite NEG (NEG) Urine Bilirubin NEG (NEG) Urine Urobilinogen NEG (NEG) Urine Leukocyte Esterase NEG (NEG) Laboratory results per my review. Medications Administered Medications (Trade) Dose Ordered Sig/Artemio Route Start Time Stop Time Status Last Admin Dose Admin Ketorolac Tromethamine (Toradol Inj) 30 mg NOW STAT IV 12/22/16 00:42 12/22/16 00:46 DC 12/22/16 00:50 30 MG Procedure Medications administered include Toradol IV. ED Course 2325: Past medical records reviewed. The patient was evaluated in room C6. A complete history and physical exam was performed. An IV lock was initiated and labs are drones above. 0042: Toradol 30 mg IV. The patient had an obstruction series performed 0132: X-ray was reviewed. CT being ordered to role out bowel obstruction. 0135: Updated the patient. She had relief of her pain from Toradol. 0235: The patient was moved to room B10. 0319: The patient was sleeping. I woke her up to finish her CT prep 0400: The patient is going for her CT scan. 0440: Discussed the findings with her. She understands and agrees with the discharge instructions. The patient is ready for discharge. Medical Decision The patient is a 61 year old female who presents to the ED with diarrhea. Differential diagnosis includes colitis, diverticulitis, exacerbation of IBS, pneumonia, cystitis, dehydration, C. Diff, small bowel obstruction. Laboratory interpretation: White count 13.0, stable H&H, BUN 19, creatinine 1.1 , glucose 281, LFTs normal, lipase 362. Urinalysis was negative. This is a 61-year-old female patient presents to the emergency department with diarrhea and diffuse abdominal pain. The patient does have a history of C. difficile. She has also had multiple previous intra-abdominal surgeries. X- ray was somewhat concerning for a partial small bowel obstruction. CT scan showed no evidence of bowel obstruction or colitis. There was slight enlargement of the left adrenal nodule. This will require follow-up with PCP. The patient was unable to give a stool specimen while here in the emergency department. We could not test for C. difficile. If the diarrhea persists, the patiently to follow-up with her PCP for stool testing. Impression Primary Impression: Diffuse abdominal pain Additional Impression: Diarrhea Scribe Attestation The scribe's documentation has been prepared under my direction and personally reviewed by me in its entirety. I confirm that the note above accurately reflects all work, treatment, procedures, and medical decision making performed by me. Departure Information Dispostion Home / Self-Care Referrals Manoj Goins D.O. (PCP) Forms HOME CARE DOCUMENTATION FORM, IMPORTANT VISIT INFORMATION, WORK / SCHOOL INSTRUCTIONS Patient Instructions My [facility] Additional Instructions Rest. Take plenty of clear liquids Use imodium for diarrhea Follow up with PCP about adrenal nodule enlarging Problem Qualifiers
[2016-12-22 00:10] LABS: BASO % 0.2 %; BASO ABS # 0.03 K/uL (0-0.2); COMPLETE YES; EOS % 1.5 %; HEMATOCRIT 36.8 % (37-47); IG% 0.2 %; LYMPH ABS # 1.31 K/uL (1.2-3.4); MEAN CELL VOLUME 94.1 fL (80-100); MEAN PLATELET VOLUME 10.5 fL (7.4-10.4); MONO % 7.7 %; NEUT % 80.4 %; PLATELET COUNT 220 K/uL (130-400); RED BLOOD COUNT 3.91 M/uL (4.2-5.4); WHITE BLOOD COUNT 13.05 K/uL (4.8-10.8)
[2016-12-22] MEDS ORDERED: KETOROLAC TROMETHAMINE 30 MG/ML VIAL IV STA (00:42)
[2016-12-22 00:47] LABS: ALT/SGPT 35 U/L (12-78); AST/SGOT 25 U/L (15-37); BLOOD UREA NITROGEN 19 mg/dl (7-18); CALCIUM 8.7 mg/dl (8.5-10.1); CARBON DIOXIDE 35 mmol/L (21-32); CHLORIDE 96 mmol/L (98-107); GLUCOSE 281 mg/dl (70-99); POTASSIUM 4.6 mmol/L (3.5-5.1); SODIUM 137 mmol/L (136-145)
[2016-12-22 00:50] LABS: ALKALINE PHOSPHATASE 72 U/L (45-117)
[2016-12-22] MEDS ORDERED: OPTIRAY 320 IV PRN (02:00)
[2016-12-22 02:03] LABS: URINE APPEARANCE CLEAR (CLEAR); URINE BILIRUBIN NEG (NEG); URINE COLOR YELLOW; URINE NITRITE NEG (NEG); URINE PH 5.5 (4.5-7.5); URINE SPECIFIC GRAVITY 1.007 (1.000-1.030); UROBILINOGEN NEG (NEG)
[2016-12-22 02:10] LABS: MANUAL MICROSCOPIC REQUIRED? NO; REVIEW REQ? NO
[2016-12-22 02:24] VITALS: O2SAT 98
[2016-12-22 05:28] VITALS: BP 98/56; PULSE 66; O2SAT 98
--- NOTE | 2016-12-22 07:20 | DIAGNOSTIC IMAGING REPORT ---
PA CHEST RADIOGRAPH AND UPRIGHT AND SUPINE AP RADIOGRAPHS OF THE ABDOMEN CLINICAL HISTORY: Abdominal pain. COMPARISON STUDY: Chest radiograph with abdominal series September 12, 2016. FINDINGS: A prosthetic mitral valve is noted. Moderate cardiomegaly is unchanged. Pulmonary vascular congestion is unchanged. There is no consolidation to suggest pneumonia. There is no free air. Bowel gas pattern is normal. There are cholecystectomy clips. IMPRESSION: 1. No free air or evidence of bowel obstruction. 2. No change in pulmonary vascular congestion with suspected mild pulmonary edema. Electronically signed by: Herman Chavez M.D. 12/22/2016 7:18 AM Dictated Date/Time: 12/22/2016 7:16 AM
--- NOTE | 2016-12-22 08:20 | DIAGNOSTIC IMAGING REPORT ---
CT OF THE ABDOMEN AND PELVIS WITH CONTRAST CLINICAL HISTORY: Abdominal pain and diarrhea. Evaluate for small bowel obstruction. COMPARISON STUDY: CT of the abdomen and pelvis September 12, 2016. TECHNIQUE: Following IV administration of 93 mL of Optiray-320, axial images of the abdomen and pelvis were obtained from the lung bases to the proximal femurs. Images were reviewed in the axial, sagittal, and coronal planes. IV contrast was administered without complication. Oral contrast was administered. CT DOSE: 845.18 mGy.cm FINDINGS: Visualized portions of the lower chest demonstrate moderate cardiomegaly and a prosthetic mitral valve. Mild groundglass opacities with interlobular septal thickening are noted. No pneumatosis, free air or portal venous gas is present. A 3 cm left adrenal mass is unchanged. This is consistent with an adenoma. There are several subcentimeter renal lesions which are too small to characterize but are unchanged. Biliary ductal dilatation status post cholecystectomy is unchanged. There is no peripancreatic infiltration. The spleen is unremarkable. A few small right adrenal nodules are unchanged since earlier exams. There is no evidence for a bowel obstruction. Mild bladder wall thickening is unchanged. There is no ascites, lymphadenopathy or abscess. No suspicious skeletal lesions are identified. The appendix is not visualized. There is a small fat-containing umbilical hernia. IMPRESSION: 1. No acute process within the abdomen or pelvis. No bowel obstruction. 2. Stable bilateral adrenal adenomas. 3. Stable biliary ductal dilatation likely related to prior cholecystectomy. 4. Mild bladder wall thickening which is similar to prior exam. Electronically signed by: Herman Chavez M.D. 12/22/2016 8:18 AM Dictated Date/Time: 12/22/2016 8:14 AM
[2017-02-10] MEDS ORDERED: MUPI2OIN9 TOP (09:22)
[2017-02-10] MEDS ORDERED: DPH/ PO (13:11)
[2017-02-10] MEDS ORDERED: HYDR25CA PO (14:44)
[2017-02-10] MEDS ORDERED: PANT40TA2 PO (15:43)
[2017-02-10] MEDS ORDERED: POTA10TA79 PO (16:01)
[2017-02-10] MEDS ORDERED: METO5TAB2 PO (16:07)
[2017-02-10] MEDS ORDERED: ATV5X PO (16:07)
[2017-03-29] MEDS ORDERED: AZIT-60 PO (17:10)
[2017-04-10] MEDS ORDERED: INSDGIPEN SC (14:27)
[2017-04-10] MEDS ORDERED: DXY100 PO (14:27)
[2017-04-10] MEDS ORDERED: PRD20 PO (14:27)
[2017-04-10] MEDS ORDERED: NVLGIPEN SC (14:27)
[2017-04-10] MEDS ORDERED: PANT40TA2 PO (14:27)
[2017-04-20] MEDS ORDERED: INSDGIPEN SC (15:50)
[2017-04-23] MEDS ORDERED: FURO-85 PO (14:29)
[2017-04-23] MEDS ORDERED: POTA10TA79 PO (14:30)
[2017-04-23] MEDS ORDERED: DXY100 PO (14:30)
[2017-04-23] MEDS ORDERED: PRD20 PO (14:30)
[2017-05-03] MEDS ORDERED: GUAI1TAB68 PO (16:30)
[2017-05-03] MEDS ORDERED: XPNINS1255 INH (16:30)
[2017-05-03] MEDS ORDERED: ATRINS INH (16:30)
[2017-05-03] MEDS ORDERED: INSDGIPEN SC (16:54)
[2017-05-03] MEDS ORDERED: PRD20 PO (16:54)
[2017-05-03] MEDS ORDERED: NVLGIPEN SC (16:54)
[2017-07-19] MEDS ORDERED: POTA1TAB97 PO (15:17)
[2017-08-17] MEDS ORDERED: LEVO50TA PO (13:11)
[2017-08-17] MEDS ORDERED: POTA20TA16 PO (15:18)
[2017-08-17] MEDS ORDERED: FURO-85 PO (15:20)
[2017-08-17] MEDS ORDERED: CALC0.5C PO (16:01)
[2017-08-17] MEDS ORDERED: METO100T14 PO (16:08)
[2017-08-17] MEDS ORDERED: METO1TAB55 PO (16:08)
[2017-08-17] MEDS ORDERED: ATV5X PO (16:08)
[2017-08-17] MEDS ORDERED: TRAZ50TA35 PO (16:08)
[2017-08-17] MEDS ORDERED: INSDGIPEN SC (16:50)
[2017-08-17] MEDS ORDERED: PANT40TA PO (16:50)
[2017-08-17] MEDS ORDERED: ATRINS NEB (17:00)
[2017-08-17] MEDS ORDERED: LEVA1.258 NEB (17:00)
[2017-08-17] MEDS ORDERED: OXGN (17:24)
[2017-08-17] MEDS ORDERED: ZYP25 PO (17:28)
[2017-08-17] MEDS ORDERED: ADVIN25/60 INH (18:00)
[2017-08-17] MEDS ORDERED: NRN800 PO (18:07)
[2017-08-17] MEDS ORDERED: AMT/50 PO (18:07)
[2017-08-17] MEDS ORDERED: NRV/10 PO (18:18)
[2017-08-17] MEDS ORDERED: LPT40 PO (18:18)
[2017-08-17] MEDS ORDERED: EFFSR75 PO (18:18)
[2017-08-20] MEDS ORDERED: SPR25 PO (12:20)
[2017-08-20] MEDS ORDERED: CLC100 PO (12:20)
[2017-08-20] MEDS ORDERED: POTA20TA16 PO (12:20)
[2017-08-20] MEDS ORDERED: DXY100 PO (12:20)
[2017-08-20] MEDS ORDERED: CMD5 PO (12:37)
== END 2016-12-22 05:30 | disposition home or self-care (01) ==
LOC: EDBD 22:52 → C.EDC 22:54 → C.EDB 12-22 05:30
DX: R10.9 Unspecified abdominal pain (principal); R19.7 Diarrhea, unspecified; R51 Headache; J44.9 Chronic obstructive pulmonary disease, unspecified; I10 Essential (primary) hypertension; G47.33 Obstructive sleep apnea (adult) (pediatric); E03.9 Hypothyroidism, unspecified; F31.9 Bipolar disorder, unspecified; E11.9 Type 2 diabetes mellitus without complications; F17.210 Nicotine dependence, cigarettes, uncomplicated; Z79.899 Other long term (current) drug therapy

== ENCOUNTER 2016-12-30 16:14 | Emergency (ER) | payer OTHER ==
[~2016-12-30] VITALS: Ht 162.6 cm; Wt 85.5 kg
[2016-12-30 16:19] VITALS: TEMP 36.6; Ht 162.6 cm; Wt 85.5 kg
[2016-12-30] MEDS ORDERED: KETOROLAC TROMETHAMINE 30 MG/ML VIAL IV STA (16:32)
[2016-12-30] MEDS ORDERED: DiphenhydrAMINE HCL 50 MG/ML VIAL IV STA (16:32)
--- NOTE | 2016-12-30 16:52 | DIAGNOSTIC IMAGING REPORT ---
CHEST ONE VIEW PORTABLE CLINICAL HISTORY: Chest Pain COMPARISON STUDY: 12/22/2016 FINDINGS: The heart is enlarged. A valvular prosthesis is again visualized. Hazy bibasilar opacities persist. Mild central vascular congestion is suspected. There is a small right lung hernia unchanged. There is no lobar consolidation.[ No pleural effusions are visualized. IMPRESSION: Cardiomegaly and persistent mild pulmonary vascular congestion. Stable small right lung hernia in the axillary region. No evidence of acute parenchymal consolidation. Electronically signed by: Cesar Lopez M.D. 12/30/2016 4:49 PM Dictated Date/Time: 12/30/2016 4:47 PM
[2016-12-30 17:17] LABS: BASO % 0.4 %; BASO ABS # 0.03 K/uL (0-0.2); COMPLETE YES; EOS % 3.7 %; HEMATOCRIT 37.6 % (37-47); IG% 0.3 %; LYMPH % 29.4 %; LYMPH ABS # 2.24 K/uL (1.2-3.4); MEAN CELL VOLUME 92.2 fL (80-100); MEAN CORPUSCULAR HEMOGLOBIN 32.1 pg (25-34); MEAN CORPUSCULAR HGB CONC 34.8 g/dl (32-36); MEAN PLATELET VOLUME 10.3 fL (7.4-10.4); MONO % 9.4 %; NEUT % 56.8 %; PLATELET COUNT 223 K/uL (130-400); RED BLOOD COUNT 4.08 M/uL (4.2-5.4); WHITE BLOOD COUNT 7.63 K/uL (4.8-10.8)
[2016-12-30 17:25] LABS: INR 1.5 (0.9-1.1); PROTHROMBIN TIME (PATIENT) 16.2 SECONDS (9.0-12.0)
[2016-12-30 17:40] LABS: BLOOD UREA NITROGEN 21 mg/dl (7-18); BUN/CREATININE RATIO 17.4 (10-20); CALCIUM 8.7 mg/dl (8.5-10.1); CARBON DIOXIDE 32 mmol/L (21-32); CHLORIDE 101 mmol/L (98-107); GLUCOSE 270 mg/dl (70-99); POTASSIUM 3.9 mmol/L (3.5-5.1); SODIUM 139 mmol/L (136-145)
[2016-12-30 17:45] LABS: CKMB/CK RATIO 2.1 (0-3.0)
[2016-12-30 18:16] VITALS: BP 138/76; PULSE 70; O2SAT 93
[2016-12-30] MEDS ORDERED: CEPH500C PO (18:21)
[2016-12-30] MEDS ORDERED: CEPHALEXIN MONOHYDRATE 250 MG CAP PO ONE (18:30)
--- NOTE | 2016-12-30 21:34 | EMERGENCY ROOM VISIT NOTE ---
History Report prepared by [place]: Shadia Mancuso Under the Supervision of: Dr. Fabricio Sesay D.O. First contact with patient: 16:21 Chief Complaint: FACIAL PAIN/INJURY Stated Complaint: LEFT SIDE OF FACE/EARLOBE IS SWOLLEN History of Present Illness The patient is a 61 year old female who presents to the Emergency Room with complaints of persistent right sided facial swelling starting 3 days ago. She also complains of right ear lobe pain and swelling. She reports itchiness in the swollen areas. She has been taking Benadryl with relief in itching. She also complains of slight blurriness in her right eye. No eye pain. She also complains of nausea but denies vomiting. Pt denies headache, eye pain, hearing problems, fevers, trouble swallowing, chest pain, diarrhea, pain with urination , and melena. She denies any new shortness of breath. She wears 3 L oxygen at home. She has a history of shortness of breath with COPD exacerbation. She has a history of cholecystectomy, appendectomy, hysterectomy, and . She is on blood thinners for a history of atrial fibrillation and a mitral valve repair. She is on Coumadin for a history of blood clots. She denies missing any doses of Coumadin. Her INR level has been normal. Source of History: patient Onset: 3 days ago Position: other (right side of face; right ear lobe) Quality: other (swelling and itchiness) Timing: other (persistent) Modifying Factors (Relieving): other (Benadryl with relief in itching) Associated Symptoms: + SOB, + nausea, No chest pain, No diarrhea, No fevers , No headache, No vomiting Review of Systems See HPI for pertinent positives & negatives. A total of 10 systems reviewed and were otherwise negative. Past Medical & Surgical Medical Problems: (1) Acute electrocardiogram changes (2) Asthma (3) Atrial fibrillation (4) Bipolar disorder (5) C. difficile colitis (6) Chronic abdominal pain (7) Chronic cor pulmonale (8) Chronic pain (9) Chronic respiratory failure (10) COPD, severe (11) Depression (12) DM type 2 (diabetes mellitus, type 2) (13) DVT (deep venous thrombosis) (14) Gastroparesis (15) GERD (gastroesophageal reflux disease) (16) HTN (hypertension) (17) Hypokalemia (18) Hypothyroidism (19) [place] toxicity (20) DARIUS on CPAP (21) Osteoarthritis Surgical Problems: (1) H/O: hysterectomy (2) Hx of appendectomy (3) Hx of cholecystectomy (4) Hx of lumpectomy (5) Hx of mitral valve repair (6) Hx of tubal ligation (7) Hx of umbilical hernia repair Family History Diabetes mellitus MOTHER FH: Crohn's disease SISTER Hypertension MOTHER Social History Smoking Status: Current Every Day Smoker Alcohol Use: none Drug Use: none Marital Status: Housing Status: lives with significant other Occupation Status: disabled Current/Historical Medications Scheduled Amitriptyline HCl (Amitriptyline HCl), 50 MG PO HS Amlodipine Besylate (Amlodipine Besylate), 10 MG PO QAM Atorvastatin (Atorvastatin Calcium), 40 MG PO HS Calcitriol (Calcitriol), 0.5 MCG PO QAM Cephalexin Monohydrate (Keflex), 500 MG PO QID Cetirizine (Zyrtec), 10 MG PO QAM Cholecalciferol (Vitamin D), 1,000 UNIT PO DAILY Colestipol HCl (Colestid), 1 GM PO BID Fentanyl (Duragesic), 1 PATCH TOP [id number] Fluticasone Prop/Salmeterol (Advair Diskus 250/50 60 Dose), 1 PUFF INH BID Furosemide (Furosemide), 40 MG PO BID Gabapentin (Gabapentin), 800 MG PO TID Insulin Glargine (Lantus Solostar), 40 UNITS SC BID Levothyroxine Sodium (Synthroid), 50 MCG PO QAM Metoclopramide Hcl (Metoclopramide Hcl), 5 MG PO ACHS Metolazone (Zaroxolyn), 2.5 MG PO DAILY Metoprolol Tartrate (Lopressor) (Lopressor), 75 MG PO BID Multiple Vitamin (Multivitamin), 1 TAB PO QAM Mupirocin (Bactroban), 1 APPLN TOP BID Olanzapine (Olanzapine), 2.5 MG PO HS Oxygen (Oxygen), 3 LITERS NA CONTINOUS Pantoprazole (Pantoprazole Sodium), 40 MG PO HS Potassium Chloride Microencaps (Potassium Chloride Cr), 20 MEQ PO BID Ranitidine Hcl (Zantac), 300 MG PO HS Tiotropium [place] (Spiriva Handihaler), 1 CAP INH DAILY Trazodone HCl (Trazodone HCl), 300 MG PO HS Venlafaxine Hcl (Effexor Extended Rel), 225 MG PO QAM Warfarin Sodium (Warfarin Sodium), 5 MG PO 2XWK Warfarin Sodium (Warfarin Sodium), 7.5 MG PO 5XWK Scheduled PRN Albuterol Sulf (Proventil 0.083% 2.5MG/3ML), 2.5 MG INH Q6 PRN for Wheezing Diphenoxylate/Atropine (Lomotil 2.5-0.025 mg), 1 TAB PO UD PRN for Diarrhea Epinephrine (Epipen), 0.3 MG IM UD PRN for ALLERGIC REACTION Hydroxyzine Pamoate (Vistaril), 25 MG PO Q6H PRN for Itching Loperamide Hcl (Imodium), 2 MG PO BID PRN for Loose Stool(s) Lorazepam (Lorazepam), 0.5 MG PO HS PRN for Anxiety Methocarbamol (Methocarbamol), 500 MG PO TID PRN for Muscle Relaxer Ondansetron (Ondansetron HCl), 8 MG PO BID PRN for Nausea Oxycodone HCl (Oxycodone HCl), 10 MG PO Q6H PRN for Pain Allergies Coded Allergies: BEE STING (Verified Allergy, Severe, SWELLING, 12/30/16) Lisinopril (Verified Allergy, Intermediate, FACE SWELLING, 12/30/16) Metronidazole (Verified Allergy, Mild, FACE SWELLING, 12/30/16) [place] (Verified Allergy, Mild, HIVES, 12/30/16) Alprazolam (Verified Allergy, Unknown, RED FACE, FACE SWELLING, 12/30/16) Lactose (Verified Adverse Reaction, Intermediate, VOMTING DIARRHEA ABDOMINAL PAIN, 12/30/16) Prednisone (Verified Adverse Reaction, Mild, unknown, 12/30/16) Colesevelam (Verified Adverse Reaction, Unknown, unknown, 12/30/16) [place] (Unverified Adverse Reaction, Unknown, jitters, 12/30/16) Uncoded Allergies: BBQ CHIPS (Allergy, Unknown, FACE SWELLING, 12/22/15) Physical Exam Vital Signs Date Time Temp Pulse Resp B/P Pulse Ox O2 Delivery O2 Flow Rate FiO2 12/30/16 18:16 70 20 138/76 93 Room Air 4/17/17 16:19 36.6 76 20 146/72 93 Room Air Physical Exam GENERAL: Sitting up in bed, no acute distress, non-toxic FACE: Small amount of swelling in the inferior portion of the right ear lobe, tracking under the right cheek, no involvement of the eyelids no pain with movement of the eye, skin is intact, no induration. EYE EXAM: normal conjunctiva, PERRL and EOM's intact EARS: TMs are clear bilaterally. OROPHARYNX: no exudate, no erythema, lips, buccal mucosa, and tongue normal and mucous membranes are moist NECK: supple, no nuchal rigidity, no adenopathy, non-tender LUNGS: Clear to auscultation. Normal chest wall mechanics HEART: no murmurs, S1 normal and S2 normal ABDOMEN: abdomen soft, non-tender, normo-active bowel sounds, no masses, no rebound or guarding. BACK: Back is symmetrical on inspection and there is no deformity, no midline tenderness, no CVA tenderness. SKIN: no rashes and no bruising UPPER EXTREMITIES: upper extremities are grossly normal. LOWER EXTREMITIES: No pitting edema. Calves are equal bilaterally. NEURO EXAM: Normal sensorium, cranial nerves II-XII grossly intact, normal speech, no gross weakness of arms, no gross weakness of legs. Respiratory/Chest: + decreased breath sounds Medical Decision & Procedures ER Provider Diagnostic Interpretation: Xray results as interpreted by me and the radiologist: CHEST ONE VIEW PORTABLE CLINICAL HISTORY: Chest Pain COMPARISON STUDY: 12/22/2016 FINDINGS: The heart is enlarged. A valvular prosthesis is again visualized. Hazy bibasilar opacities persist. Mild central vascular congestion is suspected. There is a small right lung hernia unchanged. There is no lobar consolidation.[ No pleural effusions are visualized. IMPRESSION: Cardiomegaly and persistent mild pulmonary vascular congestion. Stable small right lung hernia in the axillary region. No evidence of acute parenchymal consolidation. Electronically signed by: Cesar Lopez M.D. 12/30/2016 4:49 PM Dictated Date/Time: 12/30/2016 4:47 PM Laboratory Results 12/30/16 17:00 Red Blood Count 4.08, Mean Corpuscular Volume 92.2, Mean Corpuscular Hemoglobin 32.1, Mean Corpuscular Hemoglobin Concent 34.8, Mean Platelet Volume 10.3, Neutrophils (%) (Auto) 56.8, Lymphocytes (%) (Auto) 29.4, Monocytes (%) (Auto) 9.4, Eosinophils (%) (Auto) 3.7, Basophils (%) (Auto) 0.4, Neutrophils # (Auto) 4.34, Lymphocytes # (Auto) 2.24, Monocytes # (Auto) 0.72, Eosinophils # (Auto) 0.28, Basophils # (Auto) 0.03 12/30/16 17:00 Test 12/30/16 17:00 White Blood Count 7.63 K/uL (4.8-10.8) Red Blood Count 4.08 M/uL (4.2-5.4) Hemoglobin 13.1 g/dL (12.0-16.0) Hematocrit 37.6 % (37-47) Mean Corpuscular Volume 92.2 fL (80-100) Mean Corpuscular Hemoglobin 32.1 pg (25-34) Mean Corpuscular Hemoglobin Concent 34.8 g/dl (32-36) Platelet Count 223 K/uL (130-400) Mean Platelet Volume 10.3 fL (7.4-10.4) Neutrophils (%) (Auto) 56.8 % Lymphocytes (%) (Auto) 29.4 % Monocytes (%) (Auto) 9.4 % Eosinophils (%) (Auto) 3.7 % Basophils (%) (Auto) 0.4 % Neutrophils # (Auto) 4.34 K/uL (1.4-6.5) Lymphocytes # (Auto) 2.24 K/uL (1.2-3.4) Monocytes # (Auto) 0.72 K/uL (0.11-0.59) Eosinophils # (Auto) 0.28 K/uL (0-0.5) Basophils # (Auto) 0.03 K/uL (0-0.2) RDW Standard Deviation 43.4 fL (36.4-46.3) RDW Coefficient of Variation 12.8 % (11.5-14.5) Immature Granulocyte % (Auto) 0.3 % Immature Granulocyte # (Auto) 0.02 K/uL (0.00-0.02) Prothrombin Time 16.2 SECONDS (9.0-12.0) Prothromb Time International Ratio 1.5 (0.9-1.1) Anion Gap 6.0 mmol/L (3-11) Est Creatinine Clear Calc Drug Dose 52.8 ml/min Estimated GFR () 56.9 Estimated GFR (Non- 49.1 BUN/Creatinine Ratio 17.4 (10-20) Calcium Level 8.7 mg/dl (8.5-10.1) Total Creatine Kinase 82 U/L (26-192) Creatine Kinase MB 1.7 ng/ml (0.5-3.6) Creatine Kinase MB Ratio 2.1 (0-3.0) Troponin I < 0.015 ng/ml (0-0.045) Laboratory results per my review. Medications Administered Medications (Trade) Dose Ordered Sig/Artemio Route Start Time Stop Time Status Last Admin Dose Admin Ketorolac Tromethamine (Toradol Inj) 30 mg NOW STAT IV 12/30/16 16:32 12/30/16 16:34 DC 12/30/16 17:12 30 MG Diphenhydramine HCl (Benadryl Inj) 25 mg NOW STAT IV 12/30/16 16:32 12/30/16 16:34 DC 12/30/16 17:12 25 MG Cephalexin Monohydrate (Keflex Cap) 500 mg NOW ONCE PO 12/30/16 18:30 12/30/16 18:31 DC 12/30/16 18:35 500 MG ECG Indication: SOB/dyspnea Rate (beats per minute): 73 Rhythm: sinus with SA Findings: RBBB (incomplete), other (normal axis) Comparison ECG Date: September 12, 2016 Change: no significant change ED Course ED COURSE: Vital signs were reviewed and showed normal. The patients medical record was reviewed The above diagnostic studies were performed and reviewed. ED treatments and interventions as stated above. 1621: The patient was evaluated in room B10. A complete history and physical examination was performed. 1632: Benadryl Inj 25 mg IV, Toradol Inj 30 mg IV 1830: Keflex Cap 500 mg PO 1835: Upon reevaluation, the patient is resting comfortably.I discussed my findings with the patient and she understands and agrees with the treatment plan. Based on the patients age, coexisting illnesses, exam and lab findings the decision to treat as an outpatient was made. The patient remained stable while under my care. The patient appeared well at the time of discharge. Medical Decision Differential diagnosis includes etiologies such as cellulitis, abscess, MRSA infection, DVT, necrotizing fasciitis, dermatitis, drug eruption, as well as others were entertained. Patient is a 61-year-old female who presents the ER for redness and itching on the right side of her ear tracking to her right cheek. There is no induration. No fevers. No pain with movement of the eye. No dental pain. Labs show no significant leukocytosis, BMP is unremarkable with a negative troponin which was drawn because she initially said she has shortness of breath but confirmed on several occasions that this is her typical shortness of breath. EKG was unchanged. Chest x-ray was unremarkable. Patient was given Benadryl and Toradol along with Keflex. I question whether this is an allergic reaction versus a cellulitis. It is clearly not an orbital/septal cellulitis. She has no systemic symptoms. Encouraged Benadryl and Keflex instructed her to follow- up with her primary care doctor in 2 days. Discussed with Pt concerning signs and symptoms to watch out for. Pt was instructed to follow up with their PCP and discussed with the patient their option to return to the ED at anytime for persistent or worsening symptoms. The appropriate anticipatory guidance and out- patient management, including indications for return to the emergency department , were explained at length to the patient and understood. Impression Primary Impression: Erythema of face Scribe Attestation The scribe's documentation has been prepared under my direction and personally reviewed by me in its entirety. I confirm that the note above accurately reflects all work, treatment, procedures, and medical decision making performed by me. Departure Information Dispostion Home / Self-Care Prescriptions Cephalexin Monohydrate (Keflex) 500 Mg Cap 500 MG PO QID, #40 CAP Prov: Fabricio Sesay, 12/30/16 Referrals Manoj Goins D.O. (PCP) Forms HOME CARE DOCUMENTATION FORM, IMPORTANT VISIT INFORMATION Patient Instructions Cellulitis - [facility], [facility] Additional Instructions Please follow up with your primary care doctor with in the next 24 hours. Any worsening of your symptoms, please return to the ED immediately. This includes a chest pain, shortness breath, passing out, pain with movement of your eye, worsening redness, fevers greater than 100.4, or any other concerning signs or symptoms from your standpoint. Please take the antibiotics as prescribed and Benadryl as needed for itching. Please increase your Coumadin to 10 mg tomorrow and 10 mg of following day. Please have this rechecked by your primary care doctor or Friday.
[2017-02-10] MEDS ORDERED: MUPI2OIN9 TOP (09:22)
[2017-02-10] MEDS ORDERED: DPH/ PO (13:11)
[2017-02-10] MEDS ORDERED: HYDR25CA PO (14:44)
[2017-02-10] MEDS ORDERED: PANT40TA2 PO (15:43)
[2017-02-10] MEDS ORDERED: POTA10TA79 PO (16:01)
[2017-02-10] MEDS ORDERED: ATV5X PO (16:07)
[2017-02-10] MEDS ORDERED: METO5TAB2 PO (16:07)
[2017-03-29] MEDS ORDERED: AZIT-60 PO (17:10)
[2017-04-10] MEDS ORDERED: NVLGIPEN SC (14:27)
[2017-04-10] MEDS ORDERED: DXY100 PO (14:27)
[2017-04-10] MEDS ORDERED: INSDGIPEN SC (14:27)
[2017-04-10] MEDS ORDERED: PRD20 PO (14:27)
[2017-04-10] MEDS ORDERED: PANT40TA2 PO (14:27)
[2017-04-20] MEDS ORDERED: INSDGIPEN SC (15:50)
[2017-04-23] MEDS ORDERED: FURO-85 PO (14:29)
[2017-04-23] MEDS ORDERED: DXY100 PO (14:30)
[2017-04-23] MEDS ORDERED: POTA10TA79 PO (14:30)
[2017-04-23] MEDS ORDERED: PRD20 PO (14:30)
[2017-05-03] MEDS ORDERED: XPNINS1255 INH (16:30)
[2017-05-03] MEDS ORDERED: GUAI1TAB68 PO (16:30)
[2017-05-03] MEDS ORDERED: ATRINS INH (16:30)
[2017-05-03] MEDS ORDERED: PRD20 PO (16:54)
[2017-05-03] MEDS ORDERED: INSDGIPEN SC (16:54)
[2017-05-03] MEDS ORDERED: NVLGIPEN SC (16:54)
[2017-07-19] MEDS ORDERED: POTA1TAB97 PO (15:17)
[2017-08-17] MEDS ORDERED: LEVO50TA PO (13:11)
[2017-08-17] MEDS ORDERED: POTA20TA16 PO (15:18)
[2017-08-17] MEDS ORDERED: FURO-85 PO (15:20)
[2017-08-17] MEDS ORDERED: CALC0.5C PO (16:01)
[2017-08-17] MEDS ORDERED: METO1TAB55 PO (16:08)
[2017-08-17] MEDS ORDERED: METO100T14 PO (16:08)
[2017-08-17] MEDS ORDERED: TRAZ50TA35 PO (16:08)
[2017-08-17] MEDS ORDERED: ATV5X PO (16:08)
[2017-08-17] MEDS ORDERED: PANT40TA PO (16:50)
[2017-08-17] MEDS ORDERED: INSDGIPEN SC (16:50)
[2017-08-17] MEDS ORDERED: ATRINS NEB (17:00)
[2017-08-17] MEDS ORDERED: LEVA1.258 NEB (17:00)
[2017-08-17] MEDS ORDERED: OXGN (17:24)
[2017-08-17] MEDS ORDERED: ZYP25 PO (17:28)
[2017-08-17] MEDS ORDERED: ADVIN25/60 INH (18:00)
[2017-08-17] MEDS ORDERED: NRN800 PO (18:07)
[2017-08-17] MEDS ORDERED: AMT/50 PO (18:07)
[2017-08-17] MEDS ORDERED: EFFSR75 PO (18:18)
[2017-08-17] MEDS ORDERED: NRV/10 PO (18:18)
[2017-08-17] MEDS ORDERED: LPT40 PO (18:18)
[2017-08-20] MEDS ORDERED: SPR25 PO (12:20)
[2017-08-20] MEDS ORDERED: DXY100 PO (12:20)
[2017-08-20] MEDS ORDERED: CLC100 PO (12:20)
[2017-08-20] MEDS ORDERED: POTA20TA16 PO (12:20)
[2017-08-20] MEDS ORDERED: CMD5 PO (12:37)
== END 2016-12-30 18:37 | disposition home or self-care (01) ==
LOC: C.EDB 16:16
DX: L53.9 Erythematous condition, unspecified (principal); I48.91 Unspecified atrial fibrillation; J44.9 Chronic obstructive pulmonary disease, unspecified; Z86.718 Personal history of other venous thrombosis and embolism; J45.909 Unspecified asthma, uncomplicated; E11.9 Type 2 diabetes mellitus without complications; K21.9 Gastro-esophageal reflux disease without esophagitis; I10 Essential (primary) hypertension; E87.6 Hypokalemia; E03.9 Hypothyroidism, unspecified; G47.33 Obstructive sleep apnea (adult) (pediatric); M19.90 Unspecified osteoarthritis, unspecified site; Z83.3 Family history of diabetes mellitus; Z83.79 Family history of other diseases of the digestive system; Z82.49 Family history of ischemic heart disease and other diseases of the circulatory system; F17.210 Nicotine dependence, cigarettes, uncomplicated; Z79.01 Long term (current) use of anticoagulants; Z79.4 Long term (current) use of insulin; Z79.899 Other long term (current) drug therapy

== ENCOUNTER 2017-02-10 16:24 | Emergency (ER) | payer OTHER ==
[~2017-02-10] VITALS: Ht 162.6 cm; Wt 83.0 kg
[~2017-02-10 16:24] MED LIST changes: +ATV5X PO; +DPH/ PO; +HYDR25CA PO; +METO5TAB2 PO; +MUPI2OIN9 TOP; -NYST100016 TOP; +PANT40TA2 PO; +POTA10TA79 PO
[2017-02-10 16:26] VITALS: Ht 162.6 cm; Wt 83.0 kg
[2017-02-10] MEDS ORDERED: RBX500 PO (16:26)
[2017-02-10] MEDS ORDERED: KETOROLAC TROMETHAMINE 30 MG/ML VIAL IV STA (16:41)
[2017-02-10] MEDS ORDERED: HYDROmorphone INJ 1 MG/ML SYR IV STA (16:41)
[2017-02-10] MEDS ORDERED: SODIUM CHLORIDE 0.9% 1000ML 1,000 ML IV STA (16:41)
[2017-02-10] MEDS ORDERED: DiphenhydrAMINE HCL 50 MG/ML VIAL IV STA (16:41)
[2017-02-10] MEDS ORDERED: PROCHLORPERAZINE 5 MG/ML 2 ML VIAL IV STA (16:41)
--- NOTE | 2017-02-10 16:42 | EMERGENCY ROOM VISIT NOTE ---
History Report prepared by Linden: Satnam Regalado Under the Supervision of: Dr. Wil Coffman M.D. First contact with patient: 16:33 Chief Complaint: DIARRHEA Stated Complaint: HEADACHE, DIARRHEA SINCE FRIDAY History of Present Illness The patient is a 61 year old female who presents to the Emergency Room with complaints of persistent abdominal pain for the past three days. The patient also complains of diarrhea, nausea, and a headache. The patient presented to the ED today because her discomfort wasn't getting any better. She denies vomiting. Source of History: patient Onset: past three days Position: abdomen Timing: other (persistent) Associated Symptoms: + diarrhea, + headache, + nausea, No vomiting Review of Systems See HPI for pertinent positives & negatives. A total of 10 systems reviewed and were otherwise negative. Past Medical & Surgical Medical Problems: (1) Acute electrocardiogram changes (2) Asthma (3) Atrial fibrillation (4) Bipolar disorder (5) C. difficile colitis (6) Chronic abdominal pain (7) Chronic cor pulmonale (8) Chronic pain (9) Chronic respiratory failure (10) COPD, severe (11) Depression (12) DM type 2 (diabetes mellitus, type 2) (13) DVT (deep venous thrombosis) (14) Gastroparesis (15) GERD (gastroesophageal reflux disease) (16) HTN (hypertension) (17) Hypokalemia (18) Hypothyroidism (19) [place] toxicity (20) DARIUS on CPAP (21) Osteoarthritis Surgical Problems: (1) H/O: hysterectomy (2) Hx of appendectomy (3) Hx of cholecystectomy (4) Hx of lumpectomy (5) Hx of mitral valve repair (6) Hx of tubal ligation (7) Hx of umbilical hernia repair Family History Diabetes mellitus MOTHER FH: Crohn's disease SISTER Hypertension MOTHER Social History Smoking Status: Current Every Day Smoker Alcohol Use: none Drug Use: none Marital Status: Housing Status: lives with significant other Occupation Status: disabled Current/Historical Medications Scheduled Amitriptyline HCl (Amitriptyline HCl), 50 MG PO HS Amlodipine Besylate (Amlodipine Besylate), 10 MG PO QAM Atorvastatin (Atorvastatin Calcium), 40 MG PO HS Calcitriol (Calcitriol), 0.5 MCG PO QAM Cetirizine (Zyrtec), 10 MG PO QAM Cholecalciferol (Vitamin D), 1,000 INTER.UNIT PO DAILY Colestipol HCl (Colestid), 1 GM PO BID Fentanyl (Duragesic), 50 MCG TOP CQ72HR Fluticasone Prop/Salmeterol (Advair Diskus 250/50 60 Dose), 1 PUFF INH BID Furosemide (Furosemide), 40 MG PO BID Gabapentin (Gabapentin), 800 MG PO TID Insulin Glargine (Lantus Solostar), 40 UNITS SC BID Levothyroxine Sodium (Synthroid), 50 MCG PO QAM Metoclopramide Hcl (Metoclopramide Hcl), 5 MG PO ACHS Metolazone (Zaroxolyn), 2.5 MG PO DAILY Metoprolol Tartrate (Lopressor) (Lopressor), 75 MG PO BID Multiple Vitamin (Multivitamin), 1 TAB PO QAM Mupirocin (Bactroban), 1 APPLN TOP BID Olanzapine (Olanzapine), 2.5 MG PO HS Oxygen (Oxygen), 3 LITERS NA CONTINOUS Pantoprazole (Pantoprazole Sodium), 40 MG PO HS Potassium Chloride Microencaps (Potassium Chloride Cr), 20 MEQ PO BID Ranitidine Hcl (Zantac), 300 MG PO HS Tiotropium [place] (Spiriva Handihaler), 1 CAP INH DAILY Trazodone HCl (Trazodone HCl), 300 MG PO HS Venlafaxine Hcl (Effexor Extended Rel), 225 MG PO QAM Warfarin Sodium (Warfarin Sodium), 5 MG PO 2XWK Warfarin Sodium (Warfarin Sodium), 7.5 MG PO 5XWK Scheduled PRN Albuterol Sulf (Proventil 0.083% 2.5MG/3ML), 2.5 MG INH Q6H PRN for Wheezing Diphenoxylate/Atropine (Lomotil 2.5-0.025 mg), 1 TAB PO UD PRN for Diarrhea Epinephrine (Epipen), 0.3 MG IM UD PRN for ALLERGIC REACTION Hydroxyzine Pamoate (Vistaril), 25 MG PO Q6H PRN for Itching Loperamide Hcl (Imodium), 2 MG PO BID PRN for Loose Stool(s) Lorazepam (Lorazepam), 0.5 MG PO HS PRN for Anxiety Methocarbamol (Methocarbamol), 500 MG PO TID PRN for Muscle Relaxer Ondansetron (Ondansetron HCl), 8 MG PO BID PRN for Nausea Oxycodone HCl (Oxycodone HCl), 10 MG PO Q6H PRN for Pain Allergies Coded Allergies: BEE STING (Verified Allergy, Severe, SWELLING, 12/30/16) Lisinopril (Verified Allergy, Intermediate, FACE SWELLING, 12/30/16) Metronidazole (Verified Allergy, Mild, FACE SWELLING, 12/30/16) [place] (Verified Allergy, Mild, HIVES, 12/30/16) Alprazolam (Verified Allergy, Unknown, RED FACE, FACE SWELLING, 12/30/16) Lactose (Verified Adverse Reaction, Intermediate, VOMTING DIARRHEA ABDOMINAL PAIN, 12/30/16) Prednisone (Verified Adverse Reaction, Mild, unknown, 12/30/16) Colesevelam (Verified Adverse Reaction, Unknown, unknown, 12/30/16) [place] (Unverified Adverse Reaction, Unknown, jitters, 12/30/16) Uncoded Allergies: BBQ CHIPS (Allergy, Unknown, FACE SWELLING, 12/22/15) Physical Exam Vital Signs Date Time Temp Pulse Resp B/P Pulse Ox O2 Delivery O2 Flow Rate FiO2 02/10/17 18:43 36.7 74 18 123/62 92 02/10/17 16:26 36.7 74 18 123/62 92 Room Air Physical Exam GENERAL: Patient is a healthy-appearing well-nourished HEAD: Normocephalic atraumatic EYES: Ocular movements intact pupils equal and react to light OROPHARYNX mucous membranes are moist no exudates present no erythema or edema present NECK: Supple no nuchal rigidity CHEST: Good equal expansion LUNGS: Clear and equal to auscultation CARDIAC: Normal S1 and S2 ABDOMEN: Soft nontender no guarding BACK: No CVA tenderness EXTREMITIES: No pain upon palpation normal muscle strength in all groups no clubbing cyanosis or edema NEURO: Patient is following commands is answering questions appropriately. Alert and oriented x3 Cranial Nerves 2-12 grossly intact Medical Decision & Procedures ER Provider Diagnostic Interpretation: X-ray results as stated below per interpretation by me and the radiologist: PA CHEST RADIOGRAPH AND UPRIGHT AND SUPINE AP RADIOGRAPHS OF THE ABDOMEN CLINICAL HISTORY: Diffuse abdominal pain. COMPARISON STUDY: CT of the abdomen and pelvis December 22, 2016 and chest radiograph December 30, 2016. FINDINGS: No pneumothorax or pleural effusion is present. A prosthetic mitral valve is noted. Cardiomediastinal silhouette is stable. Mild interstitial prominence is unchanged. A defect within the right chest wall with protrusion of a portion of the right lung is unchanged. There is no free air. There is gas throughout large and small bowel. The bowel gas pattern is normal. There are cholecystectomy clips. IMPRESSION: 1. No free air or evidence of bowel obstruction. 2. Pulmonary vascular congestion, similar to prior exam. Electronically signed by: Herman Chavez M.D. 02/10/2017 5:32 PM Dictated Date/Time: 02/10/2017 5:30 PM Laboratory Results 02/10/17 17:43 Red Blood Count 4.13, Mean Corpuscular Volume 94.9, Mean Corpuscular Hemoglobin 32.2, Mean Corpuscular Hemoglobin Concent 33.9, Mean Platelet Volume 10.1, Neutrophils (%) (Auto) 54.2, Lymphocytes (%) (Auto) 34.0, Monocytes (%) (Auto) 8.6, Eosinophils (%) (Auto) 2.7, Basophils (%) (Auto) 0.4, Neutrophils # (Auto) 3.79, Lymphocytes # (Auto) 2.38, Monocytes # (Auto) 0.60, Eosinophils # (Auto) 0.19, Basophils # (Auto) 0.03 02/10/17 17:43 Test 02/10/17 17:43 02/10/17 17:50 White Blood Count 7.00 K/uL (4.8-10.8) Red Blood Count 4.13 M/uL (4.2-5.4) Hemoglobin 13.3 g/dL (12.0-16.0) Hematocrit 39.2 % (37-47) Mean Corpuscular Volume 94.9 fL (80-100) Mean Corpuscular Hemoglobin 32.2 pg (25-34) Mean Corpuscular Hemoglobin Concent 33.9 g/dl (32-36) Platelet Count 220 K/uL (130-400) Mean Platelet Volume 10.1 fL (7.4-10.4) Neutrophils (%) (Auto) 54.2 % Lymphocytes (%) (Auto) 34.0 % Monocytes (%) (Auto) 8.6 % Eosinophils (%) (Auto) 2.7 % Basophils (%) (Auto) 0.4 % Neutrophils # (Auto) 3.79 K/uL (1.4-6.5) Lymphocytes # (Auto) 2.38 K/uL (1.2-3.4) Monocytes # (Auto) 0.60 K/uL (0.11-0.59) Eosinophils # (Auto) 0.19 K/uL (0-0.5) Basophils # (Auto) 0.03 K/uL (0-0.2) RDW Standard Deviation 43.0 fL (36.4-46.3) RDW Coefficient of Variation 12.5 % (11.5-14.5) Immature Granulocyte % (Auto) 0.1 % Immature Granulocyte # (Auto) 0.01 K/uL (0.00-0.02) Anion Gap 5.0 mmol/L (3-11) Est Creatinine Clear Calc Drug Dose 52.0 ml/min Estimated GFR () 56.9 Estimated GFR (Non- 49.1 BUN/Creatinine Ratio 14.2 (10-20) Calcium Level 8.6 mg/dl (8.5-10.1) Total Bilirubin 0.3 mg/dl (0.2-1) Direct Bilirubin < 0.1 mg/dl (0-0.2) Aspartate Amino Transf (AST/SGOT) 29 U/L (15-37) Alanine Aminotransferase (ALT/SGPT) 33 U/L (12-78) Alkaline Phosphatase 75 U/L (45-117) Total Protein 6.4 gm/dl (6.4-8.2) Albumin 3.0 gm/dl (3.4-5.0) Lipase 259 U/L (73-393) Beta-Hydroxybutyric Acid 0.76 mg/dL (0.2-2.81) Urine Color YELLOW Urine Appearance CLEAR (CLEAR) Urine pH 6.5 (4.5-7.5) Urine Specific [place] 1.011 (1.000-1.030) Urine Protein NEG (NEG) Urine Glucose (UA) 3+ (NEG) Urine Ketones NEG (NEG) Urine Occult Blood NEG (NEG) Urine Nitrite NEG (NEG) Urine Bilirubin NEG (NEG) Urine Urobilinogen NEG (NEG) Urine Leukocyte Esterase NEG (NEG) Labs reviewed by ED physician. Medications Administered Medications (Trade) Dose Ordered Sig/Artemio Route Start Time Stop Time Status Last Admin Dose Admin Hydromorphone HCl (Dilaudid Inj) 1 mg NOW STAT IV 02/10/17 16:41 02/10/17 16:47 DC 02/10/17 17:04 1 MG Ketorolac Tromethamine (Toradol Inj) 30 mg NOW STAT IV 02/10/17 16:41 02/10/17 16:47 DC 02/10/17 17:04 30 MG Prochlorperazine Edisylate (Compazine Inj) 5 mg NOW STAT IV 02/10/17 16:41 02/10/17 16:47 DC 02/10/17 17:06 5 MG Diphenhydramine HCl 50 mg 50 mg NOW STAT IV 02/10/17 16:41 02/10/17 16:47 DC 02/10/17 17:03 50 MG Sodium Chloride (Nss 1000ml) 1,000 ml @ 999 mls/hr Q1H1M STAT IV 02/10/17 16:41 02/10/17 17:41 DC 02/10/17 17:05 999 MLS/HR ED Course 1638: Past medical records reviewed. The patient was evaluated in room C2. A complete history and physical examination was performed. 1641: Ordered NSS 1000 ml @ 999 mls/hr IV, Benadryl Inj 50 mg IV, Compazine Inj 5 mg IV, Toradol 30 mg IV, Dilaudid Inj 1 mg IV. 1814: Upon reexamination the patient is resting comfortably and feeling better. I discussed results and treatment plan with the patient. She verbalizes agreement and understanding. The patient is ready for discharge. Medical Decision Differential diagnosis: Etiologies such as appendicitis, diverticulitis, PUD, biliary pathology, UTI, pancreatitis, obstruction, mesenteric ischemia, aortic pathology, infections, inflammatory bowel disease, renal colic, as well as others were entertained. Medication Reconciliation: I attest that I have personally reviewed the patient' s current medication list Blood Pressure Screening: Patient was found to have an elevated blood pressure and was referred to their primary care doctor for recheck and further treatment This is a 61-year-old female who presents emergency department complaining of abdominal pain headache and diarrhea. Serial abdominal examinations were performed on the patient in the emergency department and at no tended patient exhibit a surgical abdomen. In addition the patient has very mild tenderness on examination. She also does not have an elevation in her white blood count has a normal renal profile has a normal liver profile has a normal lipase. She has no evidence of meningitis or encephalitis on examination area based on these findings I felt that the patient's pain can be treated in the emergency department. For this reason she was given Dilaudid Compazine and Benadryl and Toradol. Repeat examination revealed much improvement patient's symptoms. I do believe that the patient as well as to be discharged home for follow-up with her primary care physician. Patient was in agreement with the treatment plan. Impression Primary Impression: Diarrhea Scribe Attestation The scribe's documentation has been prepared under my direction and personally reviewed by me in its entirety. I confirm that the note above accurately reflects all work, treatment, procedures, and medical decision making performed by me. Departure Information Dispostion Home / Self-Care Referrals Manoj Goins D.O. (PCP) Forms HOME CARE DOCUMENTATION FORM, IMPORTANT VISIT INFORMATION, WORK / SCHOOL INSTRUCTIONS Patient Instructions My [facility], Vomit Diarrhea Self Care Additional Instructions You were found to have an elevated blood pressure today (>120 sytolic or >90 diastolic). Per medicare guidelines, you need to follow up with this blood pressure screening with your Primary Care Physician (PCP). For a new PCP call [phone]. You received narcotic or benzodiazepene medication while in the emergency room today. Do not drive, operate heavy machinery, or drink alcohol under the influence of this medication. You have been examined and treated today on an emergency basis only. This is not a substitute for, or an effort to provide, complete comprehensive medical care. It is impossible to recognize and treat all injuries or illnesses in a single emergency department visit. It is therefore important that you follow up closely with DR Goins. Call as soon as possible for an appointment. Thank you for your time and consideration. I look forward to speaking with you again soon. Please don't hesitate to call us if you have any questions. Problem Qualifiers Primary Impression: Diarrhea Diarrhea type: unspecified type Qualified Codes: R19.7 - Diarrhea, unspecified
[2017-02-10] MEDS ORDERED: FNTTP50 TOP (17:28)
[2017-02-10] MEDS ORDERED: IMD/2 PO (17:28)
[2017-02-10] MEDS ORDERED: METO2.5T PO (17:28)
--- NOTE | 2017-02-10 17:33 | DIAGNOSTIC IMAGING REPORT ---
PA CHEST RADIOGRAPH AND UPRIGHT AND SUPINE AP RADIOGRAPHS OF THE ABDOMEN CLINICAL HISTORY: Diffuse abdominal pain. COMPARISON STUDY: CT of the abdomen and pelvis December 22, 2016 and chest radiograph December 30, 2016. FINDINGS: No pneumothorax or pleural effusion is present. A prosthetic mitral valve is noted. Cardiomediastinal silhouette is stable. Mild interstitial prominence is unchanged. A defect within the right chest wall with protrusion of a portion of the right lung is unchanged. There is no free air. There is gas throughout large and small bowel. The bowel gas pattern is normal. There are cholecystectomy clips. IMPRESSION: 1. No free air or evidence of bowel obstruction. 2. Pulmonary vascular congestion, similar to prior exam. Electronically signed by: Herman Chavez M.D. 02/10/2017 5:32 PM Dictated Date/Time: 02/10/2017 5:30 PM
[2017-02-10] MEDS ORDERED: DSY/150 PO (17:50)
[2017-02-10 17:57] LABS: BASO % 0.4 %; BASO ABS # 0.03 K/uL (0-0.2); COMPLETE YES; EOS % 2.7 %; HEMATOCRIT 39.2 % (37-47); IG% 0.1 %; LYMPH ABS # 2.38 K/uL (1.2-3.4); MEAN CELL VOLUME 94.9 fL (80-100); MEAN CORPUSCULAR HEMOGLOBIN 32.2 pg (25-34); MEAN CORPUSCULAR HGB CONC 33.9 g/dl (32-36); MEAN PLATELET VOLUME 10.1 fL (7.4-10.4); MONO % 8.6 %; NEUT % 54.2 %; PLATELET COUNT 220 K/uL (130-400); RED BLOOD COUNT 4.13 M/uL (4.2-5.4)
[2017-02-10] MEDS ORDERED: INSDGIPEN SC (18:07)
[2017-02-10 18:09] LABS: URINE APPEARANCE CLEAR (CLEAR); URINE BILIRUBIN NEG (NEG); URINE COLOR YELLOW; URINE NITRITE NEG (NEG); URINE PH 6.5 (4.5-7.5); URINE SPECIFIC GRAVITY 1.011 (1.000-1.030); UROBILINOGEN NEG (NEG)
[2017-02-10] MEDS ORDERED: LSX40 PO (18:12)
[2017-02-10] MEDS ORDERED: OXYC-609 PO (18:12)
[2017-02-10 18:14] LABS: ALT/SGPT 33 U/L (12-78); AST/SGOT 29 U/L (15-37); BLOOD UREA NITROGEN 17 mg/dl (7-18); BUN/CREATININE RATIO 14.2 (10-20); CALCIUM 8.6 mg/dl (8.5-10.1); CARBON DIOXIDE 33 mmol/L (21-32); CHLORIDE 100 mmol/L (98-107); GLUCOSE 313 mg/dl (70-99); POTASSIUM 3.5 mmol/L (3.5-5.1); SODIUM 138 mmol/L (136-145)
[2017-02-10] MEDS ORDERED: ONDA-63 PO (18:18)
[2017-02-10] MEDS ORDERED: RANI300T PO (18:22)
[2017-02-10 18:23] LABS: ALKALINE PHOSPHATASE 75 U/L (45-117)
[2017-02-10 18:24] LABS: BETA-HYDROXYBUTYRATE 0.76 mg/dL (0.2-2.81)
[2017-02-10 18:43] VITALS: BP 123/62; PULSE 74; TEMP 36.7; O2SAT 92
[2017-02-10 18:44] LABS: MANUAL MICROSCOPIC REQUIRED? NO; REVIEW REQ? NO
[2017-02-10] MEDS ORDERED: CHOL100010 PO (22:04)
[2017-02-10] MEDS ORDERED: ALBINS/ INH (22:04)
[2017-02-10] MEDS ORDERED: CLS1 PO (22:28)
[2017-02-10] MEDS ORDERED: METO50TA16 PO (23:09)
[2017-03-29] MEDS ORDERED: AZIT-60 PO (17:10)
[2017-04-10] MEDS ORDERED: DXY100 PO (14:27)
[2017-04-10] MEDS ORDERED: INSDGIPEN SC (14:27)
[2017-04-10] MEDS ORDERED: PRD20 PO (14:27)
[2017-04-10] MEDS ORDERED: PANT40TA2 PO (14:27)
[2017-04-10] MEDS ORDERED: NVLGIPEN SC (14:27)
[2017-04-20] MEDS ORDERED: INSDGIPEN SC (15:50)
[2017-04-23] MEDS ORDERED: FURO-85 PO (14:29)
[2017-04-23] MEDS ORDERED: DXY100 PO (14:30)
[2017-04-23] MEDS ORDERED: PRD20 PO (14:30)
[2017-04-23] MEDS ORDERED: POTA10TA79 PO (14:30)
[2017-05-03] MEDS ORDERED: XPNINS1255 INH (16:30)
[2017-05-03] MEDS ORDERED: GUAI1TAB68 PO (16:30)
[2017-05-03] MEDS ORDERED: ATRINS INH (16:30)
[2017-05-03] MEDS ORDERED: INSDGIPEN SC (16:54)
[2017-05-03] MEDS ORDERED: NVLGIPEN SC (16:54)
[2017-05-03] MEDS ORDERED: PRD20 PO (16:54)
[2017-07-19] MEDS ORDERED: POTA1TAB97 PO (15:17)
[2017-08-17] MEDS ORDERED: LEVO50TA PO (13:11)
[2017-08-17] MEDS ORDERED: POTA20TA16 PO (15:18)
[2017-08-17] MEDS ORDERED: FURO-85 PO (15:20)
[2017-08-17] MEDS ORDERED: CALC0.5C PO (16:01)
[2017-08-17] MEDS ORDERED: METO1TAB55 PO (16:08)
[2017-08-17] MEDS ORDERED: ATV5X PO (16:08)
[2017-08-17] MEDS ORDERED: METO100T14 PO (16:08)
[2017-08-17] MEDS ORDERED: TRAZ50TA35 PO (16:08)
[2017-08-17] MEDS ORDERED: PANT40TA PO (16:50)
[2017-08-17] MEDS ORDERED: INSDGIPEN SC (16:50)
[2017-08-17] MEDS ORDERED: ATRINS NEB (17:00)
[2017-08-17] MEDS ORDERED: LEVA1.258 NEB (17:00)
[2017-08-17] MEDS ORDERED: OXGN (17:24)
[2017-08-17] MEDS ORDERED: ZYP25 PO (17:28)
[2017-08-17] MEDS ORDERED: ADVIN25/60 INH (18:00)
[2017-08-17] MEDS ORDERED: NRN800 PO (18:07)
[2017-08-17] MEDS ORDERED: AMT/50 PO (18:07)
[2017-08-17] MEDS ORDERED: EFFSR75 PO (18:18)
[2017-08-17] MEDS ORDERED: LPT40 PO (18:18)
[2017-08-17] MEDS ORDERED: NRV/10 PO (18:18)
[2017-08-20] MEDS ORDERED: POTA20TA16 PO (12:20)
[2017-08-20] MEDS ORDERED: SPR25 PO (12:20)
[2017-08-20] MEDS ORDERED: DXY100 PO (12:20)
[2017-08-20] MEDS ORDERED: CLC100 PO (12:20)
[2017-08-20] MEDS ORDERED: CMD5 PO (12:37)
== END 2017-02-10 18:45 | disposition home or self-care (01) ==
LOC: C.EDB 16:26 → C.EDC 18:45
DX: R19.7 Diarrhea, unspecified (principal); J45.909 Unspecified asthma, uncomplicated; I48.91 Unspecified atrial fibrillation; F31.9 Bipolar disorder, unspecified; J44.9 Chronic obstructive pulmonary disease, unspecified; F32.9 Major depressive disorder, single episode, unspecified; E11.9 Type 2 diabetes mellitus without complications; Z86.718 Personal history of other venous thrombosis and embolism; K21.9 Gastro-esophageal reflux disease without esophagitis; K31.84 Gastroparesis; I10 Essential (primary) hypertension; E87.6 Hypokalemia; E03.9 Hypothyroidism, unspecified; G47.33 Obstructive sleep apnea (adult) (pediatric); M19.90 Unspecified osteoarthritis, unspecified site; Z83.3 Family history of diabetes mellitus; Z83.79 Family history of other diseases of the digestive system; Z82.49 Family history of ischemic heart disease and other diseases of the circulatory system; F17.210 Nicotine dependence, cigarettes, uncomplicated; Z79.01 Long term (current) use of anticoagulants; Z79.899 Other long term (current) drug therapy; Z99.81 Dependence on supplemental oxygen

== ENCOUNTER 2017-03-06 20:14 | Emergency (ER) | payer OTHER ==
[~2017-03-06] VITALS: Ht 162.6 cm; Wt 86.0 kg
[~2017-03-06 20:14] MED LIST changes: +ALBINS/ INH; +CHOL100010 PO; +CLS1 PO; +DSY/150 PO; +FNTTP50 TOP; +IMD/2 PO; +INSDGIPEN SC; +LSX40 PO; +METO2.5T PO; +METO50TA16 PO; +ONDA-63 PO; +OXYC-609 PO; +RANI300T PO; +RBX500 PO
[2017-03-06 20:28] VITALS: TEMP 36.8; Ht 162.6 cm; Wt 86.0 kg
[2017-03-06 21:38] VITALS: BP 130/100; PULSE 91; O2SAT 94
[2017-03-06] MEDS ORDERED: CEPHALEXIN MONOHYDRATE 250 MG CAP PO STA (21:40)
[2017-03-06] MEDS ORDERED: CEPH500C PO (21:43)
--- NOTE | 2017-03-06 22:16 | EMERGENCY ROOM VISIT NOTE ---
History Report prepared by Linden: Duncan Oviedo Under the Supervision of: Dr. Jame Titus M.D. First contact with patient: 21:31 Chief Complaint: WOUND INFECTION Stated Complaint: CYST ON PRIVATE AREA, [place] Nursing Triage Summary: Patient states "I have a sore in my privates and it pains like the dikens. I had it for a week. I have not seen a doctor for it." History of Present Illness The patient is a 61 year old female who presents to the Emergency Room with complaints of a constant genital infection starting a week ago. She rates her discomfort as a 9/10 in severity. The patient states that she has had symptoms similar to this in the past. She states that her past problem was diagnosed as a genital cyst and admits that it was lanced. The patient states that she has been experiencing a fever, chills, and mild bleeding from the genital site. She reports that she does not have an DAYCARE DIRECTOR doctor and has not seen any doctor for her condition. The patient states that she takes Coumadin and wears oxygen all the time. She denies vomiting. Source of History: patient Onset: a week ago Position: other (genitals) Symptom Intensity: 9/10 Timing: constant Associated Symptoms: No vomiting Review of Systems See HPI for pertinent positives & negatives. A total of 10 systems reviewed and were otherwise negative. Past Medical & Surgical Medical Problems: (1) Acute electrocardiogram changes (2) Asthma (3) Atrial fibrillation (4) Bipolar disorder (5) C. difficile colitis (6) Chronic abdominal pain (7) Chronic cor pulmonale (8) Chronic pain (9) Chronic respiratory failure (10) COPD, severe (11) Depression (12) DM type 2 (diabetes mellitus, type 2) (13) DVT (deep venous thrombosis) (14) Gastroparesis (15) GERD (gastroesophageal reflux disease) (16) HTN (hypertension) (17) Hypokalemia (18) Hypothyroidism (19) [place] toxicity (20) DARIUS on CPAP (21) Osteoarthritis Surgical Problems: (1) H/O: hysterectomy (2) Hx of appendectomy (3) Hx of cholecystectomy (4) Hx of lumpectomy (5) Hx of mitral valve repair (6) Hx of tubal ligation (7) Hx of umbilical hernia repair Family History Diabetes mellitus MOTHER FH: Crohn's disease SISTER Hypertension MOTHER Social History Smoking Status: Current Every Day Smoker Alcohol Use: none Drug Use: none Marital Status: Housing Status: lives with significant other Occupation Status: disabled Current/Historical Medications Scheduled Amitriptyline HCl (Amitriptyline HCl), 50 MG PO HS Amlodipine Besylate (Amlodipine Besylate), 10 MG PO QAM Atorvastatin (Atorvastatin Calcium), 40 MG PO HS Calcitriol (Calcitriol), 0.5 MCG PO QAM Cephalexin Monohydrate (Keflex), 500 MG PO TID Cetirizine (Zyrtec), 10 MG PO QAM Cholecalciferol (Vitamin D), 1,000 INTER.UNIT PO DAILY Colestipol HCl (Colestid), 1 GM PO BID Fentanyl (Duragesic), 50 MCG TOP CQ72HR Fluticasone Prop/Salmeterol (Advair Diskus 250/50 60 Dose), 1 PUFF INH BID Furosemide (Furosemide), 40 MG PO BID Gabapentin (Gabapentin), 800 MG PO TID Home O2 Therapy (Oxygen), 3 LITERS NA CONTINOUS Insulin Glargine (Lantus Solostar), 40 UNITS SC BID Levothyroxine Sodium (Synthroid), 50 MCG PO QAM Metoclopramide Hcl (Metoclopramide Hcl), 5 MG PO ACHS Metolazone (Zaroxolyn), 2.5 MG PO DAILY Metoprolol Tartrate (Lopressor) (Lopressor), 75 MG PO BID Multiple Vitamin (Multivitamin), 1 TAB PO QAM Mupirocin (Bactroban), 1 APPLN TOP BID Olanzapine (Olanzapine), 2.5 MG PO HS Pantoprazole (Pantoprazole Sodium), 40 MG PO HS Potassium Chloride Microencaps (Potassium Chloride Cr), 20 MEQ PO BID Ranitidine Hcl (Zantac), 300 MG PO HS Tiotropium [place] (Spiriva Handihaler), 1 CAP INH DAILY Trazodone HCl (Trazodone HCl), 300 MG PO HS Venlafaxine Hcl (Effexor Extended Rel), 225 MG PO QAM Warfarin Sodium (Warfarin Sodium), 5 MG PO 2XWK Warfarin Sodium (Warfarin Sodium), 7.5 MG PO 5XWK Scheduled PRN Albuterol Sulf (Proventil 0.083% 2.5MG/3ML), 2.5 MG INH Q6H PRN for Wheezing Diphenoxylate/Atropine (Lomotil 2.5-0.025 mg), 1 TAB PO UD PRN for Diarrhea Epinephrine (Epipen), 0.3 MG IM UD PRN for ALLERGIC REACTION Hydroxyzine Pamoate (Vistaril), 25 MG PO Q6H PRN for Itching Loperamide Hcl (Imodium), 2 MG PO BID PRN for Loose Stool(s) Lorazepam (Lorazepam), 0.5 MG PO HS PRN for Anxiety Methocarbamol (Methocarbamol), 500 MG PO TID PRN for Muscle Relaxer Ondansetron (Ondansetron HCl), 8 MG PO BID PRN for Nausea Oxycodone HCl (Oxycodone HCl), 10 MG PO Q6H PRN for Pain Allergies Coded Allergies: BEE STING (Verified Allergy, Severe, SWELLING, 03/06/17) Lisinopril (Verified Allergy, Intermediate, FACE SWELLING, 03/06/17) Metronidazole (Verified Allergy, Mild, FACE SWELLING, 03/06/17) [place] (Verified Allergy, Mild, HIVES, 03/06/17) Alprazolam (Verified Allergy, Unknown, RED FACE, FACE SWELLING, 03/06/17) Lactose (Verified Adverse Reaction, Intermediate, VOMTING DIARRHEA ABDOMINAL PAIN, 03/06/17) Prednisone (Verified Adverse Reaction, Mild, unknown, 03/06/17) Colesevelam (Verified Adverse Reaction, Unknown, unknown, 03/06/17) [place] (Verified Adverse Reaction, Unknown, jitters, 03/06/17) Uncoded Allergies: BBQ CHIPS (Allergy, Unknown, FACE SWELLING, 12/22/15) Physical Exam Vital Signs Date Time Temp Pulse Resp B/P (MAP) Pulse Ox O2 Delivery O2 Flow Rate FiO2 03/06/17 21:38 91 130/100 94 Room Air 03/06/17 20:28 36.8 86 18 145/74 94 Room Air Physical Exam GENERAL: Patient is in no acute distress. HEENT: No acute trauma, normocephalic atraumatic, mucous membranes moist, no nasal congestion, no scleral icterus. NECK: No stridor, no adenopathy, no meningismus, trachea is midline. LUNGS: Diminished breath sounds bilaterally. Lung sounds are equal bilaterally. No wheezing or rhonchi. HEART: 2/6 systolic murmur. Regular rate and rhythm. ABDOMEN: Soft, nontender, bowel sounds positive, no hernias, no peritonitis. GROIN: Small draining papule to the pelvis just superior to the vagina. No cellulitis. No abscess. No signs of worrisome infection. EXTREMITIES: No cyanosis or edema, full range of motion of all the joints without pain or difficulty, no signs for acute trauma. NEUROLOGIC: Oriented x 3, no acute motor or sensory deficits, no focal weakness. SKIN: No rash, no jaundice, no diaphoresis. Medical Decision & Procedures Medications Administered Medications (Trade) Dose Ordered Sig/Artemio Route Start Time Stop Time Status Last Admin Dose Admin Cephalexin Monohydrate (Keflex Cap) 500 mg NOW STAT PO 03/06/17 21:40 03/06/17 21:41 DC 03/06/17 21:49 500 MG ED Course 2129: The patient was evaluated in room A12B. A complete history and physical exam was performed. 2139: I reevaluated the patient. I discussed results and discharge instructions : She verbalized understanding and agreement. The patient is ready for discharge. Medical Decision The differential diagnosis includes but is not limited to: Bartholin's abscess, abscess, cellulitis, cyst. Medication Reconciliation: I attest that I have personally reviewed the patient' s current medication list. Blood Pressure Screening: Patient was found to have an elevated blood pressure and was referred to their primary doctor for recheck and further treatment. The patient presents with a week of what she thought was a pelvic cyst. The area is sore. She has been using warm compresses. She is not febrile here, she is not toxic. 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 There is a small open lesion that appears to be an ingrown hair follicle or papule. There is no abscess to be drained currently. The patient is being placed on Keflex, first dose was given here. Sitz baths and continued warm compresses were suggested. She will follow with her doctors office and return here for worsening symptoms. Impression Primary Impression: Pelvic cyst Scribe Attestation The scribe's documentation has been prepared under my direction and personally reviewed by me in its entirety. I confirm that the note above accurately reflects all work, treatment, procedures, and medical decision making performed by me. Departure Information Dispostion Home / Self-Care Prescriptions Cephalexin Monohydrate (Keflex) 500 Mg Cap 500 MG PO TID for 7 Days, #21 CAP Prov: Jame Titus M.D. 03/06/17 Referrals Manoj Goins D.O. (PCP) Forms HOME CARE DOCUMENTATION FORM, IMPORTANT VISIT INFORMATION, WORK / SCHOOL INSTRUCTIONS Patient Instructions My [facility] [address] Additional Instructions keflex 3x per day for 1 week warm compresses sitz baths 3x per day follow with queenie dash for a recheck next week return for fever or redness or worsening symptoms
[2017-03-29] MEDS ORDERED: AZIT-60 PO (17:10)
[2017-04-10] MEDS ORDERED: NVLGIPEN SC (14:27)
[2017-04-10] MEDS ORDERED: PRD20 PO (14:27)
[2017-04-10] MEDS ORDERED: INSDGIPEN SC (14:27)
[2017-04-10] MEDS ORDERED: DXY100 PO (14:27)
[2017-04-10] MEDS ORDERED: PANT40TA2 PO (14:27)
[2017-04-20] MEDS ORDERED: INSDGIPEN SC (15:50)
[2017-04-23] MEDS ORDERED: FURO-85 PO (14:29)
[2017-04-23] MEDS ORDERED: PRD20 PO (14:30)
[2017-04-23] MEDS ORDERED: POTA10TA79 PO (14:30)
[2017-04-23] MEDS ORDERED: DXY100 PO (14:30)
[2017-05-03] MEDS ORDERED: GUAI1TAB68 PO (16:30)
[2017-05-03] MEDS ORDERED: ATRINS INH (16:30)
[2017-05-03] MEDS ORDERED: XPNINS1255 INH (16:30)
[2017-05-03] MEDS ORDERED: PRD20 PO (16:54)
[2017-05-03] MEDS ORDERED: INSDGIPEN SC (16:54)
[2017-05-03] MEDS ORDERED: NVLGIPEN SC (16:54)
[2017-07-19] MEDS ORDERED: POTA1TAB97 PO (15:17)
[2017-08-17] MEDS ORDERED: LEVO50TA PO (13:11)
[2017-08-17] MEDS ORDERED: POTA20TA16 PO (15:18)
[2017-08-17] MEDS ORDERED: FURO-85 PO (15:20)
[2017-08-17] MEDS ORDERED: CALC0.5C PO (16:01)
[2017-08-17] MEDS ORDERED: ATV5X PO (16:08)
[2017-08-17] MEDS ORDERED: METO1TAB55 PO (16:08)
[2017-08-17] MEDS ORDERED: TRAZ50TA35 PO (16:08)
[2017-08-17] MEDS ORDERED: METO100T14 PO (16:08)
[2017-08-17] MEDS ORDERED: PANT40TA PO (16:50)
[2017-08-17] MEDS ORDERED: INSDGIPEN SC (16:50)
[2017-08-17] MEDS ORDERED: ATRINS NEB (17:00)
[2017-08-17] MEDS ORDERED: LEVA1.258 NEB (17:00)
[2017-08-17] MEDS ORDERED: OXGN (17:24)
[2017-08-17] MEDS ORDERED: ZYP25 PO (17:28)
[2017-08-17] MEDS ORDERED: ADVIN25/60 INH (18:00)
[2017-08-17] MEDS ORDERED: AMT/50 PO (18:07)
[2017-08-17] MEDS ORDERED: NRN800 PO (18:07)
[2017-08-17] MEDS ORDERED: LPT40 PO (18:18)
[2017-08-17] MEDS ORDERED: EFFSR75 PO (18:18)
[2017-08-17] MEDS ORDERED: NRV/10 PO (18:18)
[2017-08-20] MEDS ORDERED: POTA20TA16 PO (12:20)
[2017-08-20] MEDS ORDERED: SPR25 PO (12:20)
[2017-08-20] MEDS ORDERED: DXY100 PO (12:20)
[2017-08-20] MEDS ORDERED: CLC100 PO (12:20)
[2017-08-20] MEDS ORDERED: CMD5 PO (12:37)
== END 2017-03-06 21:51 | disposition home or self-care (01) ==
LOC: C.EDB 20:16 → C.EDA 21:51
DX: N94.89 Other specified conditions associated with female genital organs and menstrual cycle (principal); Z79.01 Long term (current) use of anticoagulants; Z99.81 Dependence on supplemental oxygen; J45.909 Unspecified asthma, uncomplicated; I48.91 Unspecified atrial fibrillation; F31.9 Bipolar disorder, unspecified; J44.9 Chronic obstructive pulmonary disease, unspecified; E03.9 Hypothyroidism, unspecified; Z90.710 Acquired absence of both cervix and uterus; Z86.718 Personal history of other venous thrombosis and embolism; K21.9 Gastro-esophageal reflux disease without esophagitis; I10 Essential (primary) hypertension; E87.6 Hypokalemia; G47.33 Obstructive sleep apnea (adult) (pediatric); M19.90 Unspecified osteoarthritis, unspecified site; I27.81 Cor pulmonale (chronic); J96.10 Chronic respiratory failure, unspecified whether with hypoxia or hypercapnia; E11.43 Type 2 diabetes mellitus with diabetic autonomic (poly)neuropathy; Z90.49 Acquired absence of other specified parts of digestive tract; Z98.51 Tubal ligation status; Z83.3 Family history of diabetes mellitus; Z82.49 Family history of ischemic heart disease and other diseases of the circulatory system; Z79.4 Long term (current) use of insulin; Z79.899 Other long term (current) drug therapy

== ENCOUNTER → 2017-03-27 | Outpatient (CLI) | payer OTHER ==
[~2017-03-27] MED LIST changes: +ADVIN25/60 INH; +AMT/50 PO; +AZIT250T5 PO; +CALC0.5C17 PO; +CETI10TA84 PO; +EFFSR75 PO; +EPP3/2 IM; +LEVO50TA PO; +LPT40 PO; +MULTTAB58 PO; +NRN800 PO; +NRV/10 PO; +OXGN; -PANT40TA2 PO; +PRT/40 PO; +SPRIN/30 INH; +WARF-246 PO; +ZYP25 PO
--- NOTE | 2017-03-27 15:23 | MAMMOGRAPHY REPORT ---
BILATERAL DIGITAL SCREENING MAMMOGRAM WITH CAD: 03/27/2017 CLINICAL HISTORY: Routine screening. Patient has no complaints. TECHNIQUE: Current study was also evaluated with a Computer Aided Detection (CAD) system. Bilateral CC and MLO views were obtained. COMPARISON: Comparison is made to exams dated: 02/16/2016 mammogram, 02/09/2015 mammogram, 03/19/2012 [place]raine mogram, 03/19/2012 ultrasound, 06/11/2011 mammogram, and 05/22/2010 mammogram - [facility] er. BREAST COMPOSITION: There are scattered areas of fibroglandular density in both breasts. FINDINGS: No suspicious masses, calcifications, or areas of architectural distortion are noted in ei ther breast. There has been no significant interval change compared to prior exams. Small oval 7 mm mass with associated coarsening calcifications in the right medial breast is stable and may represent a degenerating fibroadenoma. Other bilateral benign-appearing calcifications and bilateral benign-a ppearing masses are stable. IMPRESSION: ACR BI-RADS CATEGORY 2: BENIGN There is no mammographic evidence of malignancy. A 1 year screening mammogram is recommended. The pa tient will receive written notification of the results. Approximately 10% of breast cancers are not detected with mammography. A negative mammographic report should not delay biopsy if a clinically suggestive mass is present. Radha Rivas M.D. /:03/27/2017 13:49:16 Software Project Lead: Monet Vasquez M, [facility] letter sent: Normal 1/2 BI-RADS Code: ACR BI-RADS Category 2: Benign
== END | disposition home or self-care (01) ==
LOC: C.MAMM 12:45
PROVIDERS: ATTEND Internal Medicine
DX: Z12.31 Encounter for screening mammogram for malignant neoplasm of breast (principal)

== ENCOUNTER 2017-03-29 15:22 | Emergency (ER) | payer OTHER ==
[~2017-03-29] VITALS: Ht 162.6 cm; Wt 86.0 kg
[~2017-03-29 15:22] MED LIST changes: -AZIT250T5 PO
[2017-03-29 15:30] VITALS: TEMP 36.8; Ht 162.6 cm; Wt 86.0 kg
[2017-03-29] MEDS ORDERED: AZITHROMYCIN 250 MG TAB PO STA (16:10)
[2017-03-29] MEDS ORDERED: ALBUT/IPRATROP 3MG/0.5MG NEB 3 ML VIAL INH STA (16:10)
[2017-03-29] MEDS ORDERED: KETOROLAC TROMETHAMINE 60 MG/2 ML VIAL IM STA (16:14)
[2017-03-29] MEDS ORDERED: PROMETHAZINE HCL INJ 25 MG/ML 1 ML VIAL IM STA (16:14)
--- NOTE | 2017-03-29 16:28 | EMERGENCY ROOM VISIT NOTE ---
History Report prepared by [place]: Janet Lloyd Under the Supervision of: Dr. Wil Coffman M.D. First contact with patient: 16:01 Chief Complaint: COUGH Stated Complaint: EAR PAIN,SORE THROAT,COUGH Nursing Triage Summary: Patient c/o sore throat, ear pain and cough and c/o mid chest pain starting yesterday. History of Present Illness The patient is a 61 year old female who presents to the Emergency Room with complaints of an episode of chest pain starting yesterday. She states that the pain feels like someone is sitting on her chest. The patient currently rates her pain as an 8/10 in severity. The patient states that the pain started with her other symptoms. She complains of ear pain, a sorethroat, and a cough. The patient denies the chest pain worsening when taking a deep breath. The patient notes that she does have a history of ear infections and that she uses inhalers daily. She notes that she last used her inhalers this morning. Source of History: patient Onset: yesterday Position: chest Symptom Intensity: 8/10 Quality: other ("someone sitting on her chest") Timing: other (episode) Associated Symptoms: + sorethroat, + cough Note: The patient complains of pain in her ear. The patient denies the chest pain being worse with deep breaths. Review of Systems See HPI for pertinent positives & negatives. A total of 10 systems reviewed and were otherwise negative. Past Medical & Surgical Medical Problems: (1) Acute electrocardiogram changes (2) Asthma (3) Atrial fibrillation (4) Bipolar disorder (5) C. difficile colitis (6) Chronic abdominal pain (7) Chronic cor pulmonale (8) Chronic pain (9) Chronic respiratory failure (10) COPD, severe (11) Depression (12) DM type 2 (diabetes mellitus, type 2) (13) DVT (deep venous thrombosis) (14) Gastroparesis (15) GERD (gastroesophageal reflux disease) (16) History of ear infection (17) HTN (hypertension) (18) Hypokalemia (19) Hypothyroidism (20) [place] toxicity (21) DARIUS on CPAP (22) Osteoarthritis Surgical Problems: (1) H/O: hysterectomy (2) Hx of appendectomy (3) Hx of cholecystectomy (4) Hx of lumpectomy (5) Hx of mitral valve repair (6) Hx of tubal ligation (7) Hx of umbilical hernia repair Family History Diabetes mellitus MOTHER FH: Crohn's disease SISTER Hypertension MOTHER Social History Smoking Status: Current Every Day Smoker Alcohol Use: none Drug Use: none Marital Status: Housing Status: lives with significant other Occupation Status: disabled Current/Historical Medications Scheduled Amitriptyline HCl (Amitriptyline HCl), 50 MG PO HS Amlodipine Besylate (Amlodipine Besylate), 10 MG PO QAM Atorvastatin (Atorvastatin Calcium), 40 MG PO HS Azithromycin (Zithromax), 250 MG PO DAILY Calcitriol (Calcitriol), 0.5 MCG PO QAM Cetirizine (Zyrtec), 10 MG PO QAM Cholecalciferol (Vitamin D), 1,000 INTER.UNIT PO DAILY Colestipol HCl (Colestid), 1 GM PO BID Fentanyl (Duragesic), 50 MCG TOP [id number] Fluticasone Prop/Salmeterol (Advair Diskus 250/50 60 Dose), 1 PUFF INH BID Furosemide (Furosemide), 40 MG PO BID Gabapentin (Gabapentin), 800 MG PO TID Home O2 Therapy (Oxygen), 3 LITERS NA CONTINOUS Insulin Glargine (Lantus Solostar), 40 UNITS SC BID Levothyroxine Sodium (Synthroid), 50 MCG PO QAM Metoclopramide Hcl (Metoclopramide Hcl), 5 MG PO ACHS Metolazone (Zaroxolyn), 2.5 MG PO DAILY Metoprolol Tartrate (Lopressor) (Lopressor), 75 MG PO BID Multiple Vitamin (Multivitamin), 1 TAB PO QAM Mupirocin (Bactroban), 1 APPLN TOP BID Olanzapine (Olanzapine), 2.5 MG PO HS Pantoprazole (Pantoprazole Sodium), 40 MG PO HS Potassium Chloride Microencaps (Potassium Chloride Cr), 20 MEQ PO BID Ranitidine Hcl (Zantac), 300 MG PO HS Tiotropium [place] (Spiriva Handihaler), 1 CAP INH DAILY Trazodone HCl (Trazodone HCl), 300 MG PO HS Venlafaxine Hcl (Effexor Extended Rel), 225 MG PO QAM Warfarin Sodium (Warfarin Sodium), 5 MG PO 2XWK Warfarin Sodium (Warfarin Sodium), 7.5 MG PO 5XWK Scheduled PRN Albuterol Sulf (Proventil 0.083% 2.5MG/3ML), 2.5 MG INH Q6H PRN for Wheezing Diphenoxylate/Atropine (Lomotil 2.5-0.025 mg), 1 TAB PO UD PRN for Diarrhea Epinephrine (Epipen), 0.3 MG IM UD PRN for ALLERGIC REACTION Hydroxyzine Pamoate (Vistaril), 25 MG PO Q6H PRN for Itching Loperamide Hcl (Imodium), 2 MG PO BID PRN for Loose Stool(s) Lorazepam (Lorazepam), 0.5 MG PO HS PRN for Anxiety Methocarbamol (Methocarbamol), 500 MG PO TID PRN for Muscle Relaxer Ondansetron (Ondansetron HCl), 8 MG PO BID PRN for Nausea Oxycodone HCl (Oxycodone HCl), 10 MG PO Q6H PRN for Pain Allergies Coded Allergies: BEE STING (Verified Allergy, Severe, SWELLING, 03/29/17) Lisinopril (Verified Allergy, Intermediate, FACE SWELLING, 03/29/17) Metronidazole (Verified Allergy, Mild, FACE SWELLING, 03/29/17) [place] (Verified Allergy, Mild, HIVES, 03/29/17) Alprazolam (Verified Allergy, Unknown, RED FACE, FACE SWELLING, 03/29/17) Lactose (Verified Adverse Reaction, Intermediate, VOMTING DIARRHEA ABDOMINAL PAIN, 03/29/17) Prednisone (Verified Adverse Reaction, Mild, unknown, 03/29/17) Colesevelam (Verified Adverse Reaction, Unknown, unknown, 03/29/17) [place] (Verified Adverse Reaction, Unknown, jitters, 03/29/17) Uncoded Allergies: BBQ CHIPS (Allergy, Unknown, FACE SWELLING, 12/22/15) Physical Exam Vital Signs Date Time Temp Pulse Resp B/P (MAP) Pulse Ox O2 Delivery O2 Flow Rate FiO2 03/29/17 17:40 74 143/53 93 03/29/17 17:13 60 21 135/83 96 Room Air 03/29/17 16:10 66 03/29/17 15:30 36.8 72 16 151/69 90 Room Air Physical Exam GENERAL: Patient is a healthy-appearing well-nourished HEAD: Normocephalic atraumatic EYES: Ocular movements intact pupils equal and react to light OROPHARYNX mucous membranes are moist no exudates present no erythema or edema present NECK: Supple no nuchal rigidity CHEST: Good equal expansion, tenderness to palpation to chest LUNGS: Bilateral wheezing CARDIAC: Normal S1 and S2 ABDOMEN: Soft nontender no guarding BACK: No CVA tenderness EXTREMITIES: No pain upon palpation normal muscle strength in all groups no clubbing cyanosis or edema NEURO: Patient is following commands and answering questions appropriately. Alert and oriented x3 Cranial Nerves 2-12 grossly intact Medical Decision & Procedures ER Provider Diagnostic Interpretation: CHEST ONE VIEW PORTABLE CLINICAL HISTORY: Pt c/o SOB dyspnea COMPARISON STUDY: 02/10/2017 FINDINGS: Mild increase in cardiac size compared to the prior study. Increased pulmonary vasculature consistent with developing congestive failure. Diaphragms are smooth. Calcific angles are sharp. IMPRESSION: Congestive heart failure The above report was generated using voice recognition software. It may contain grammatical, syntax or spelling errors. Electronically signed by: Javan Dey M.D. 03/29/2017 4:43 PM Dictated Date/Time: 03/29/2017 4:42 PM Medications Administered Medications (Trade) Dose Ordered Sig/Artemio Route Start Time Stop Time Status Last Admin Dose Admin Albuterol/ Ipratropium (Duoneb) 3 ml NOW STAT INH 03/29/17 16:10 03/29/17 16:12 DC 03/29/17 16:27 3 ML Azithromycin (Zithromax Tab) 500 mg NOW STAT PO 03/29/17 16:10 03/29/17 16:12 DC 03/29/17 16:27 500 MG Ketorolac Tromethamine (Toradol Inj) 60 mg NOW STAT IM 03/29/17 16:14 03/29/17 16:15 DC 03/29/17 16:31 60 MG Promethazine HCl (Phenergan Inj) 25 mg NOW STAT IM 03/29/17 16:14 03/29/17 16:15 DC 03/29/17 16:31 25 MG Furosemide (Lasix Tab) 40 mg NOW STAT PO 03/29/17 16:50 03/29/17 16:52 DC 03/29/17 17:12 40 MG ECG Indication: chest pain Rate (beats per minute): 71 Rhythm: sinus rhythm Findings: RBBB, no acute ischemic change, no ectopy, other (premature supraventricular complexes) Comparison ECG Date: 12/30/16 Change: no significant change ED Course 1606: Past medical records reviewed. The patient was evaluated in room A2. A complete history and physical examination was performed. 1610: Ordered Zithromax Tab 500 mg PO, Duoneb 3 ml INH. 1614: Ordered Phenergan Inj 25 mg IM, Toradol Inj 60 mg IM. 1650: Ordered Lasix Tab 40 mg PO. 1710: Ordered Albuterol 2 puffs INH. 1727: Upon reexamination the patient is resting comfortably. I discussed results and treatment plan with the patient. She verbalizes agreement and understanding. The patient is ready for discharge. Medical Decision Medication Reconciliation: I attest that I have personally reviewed the patient' s current medication list Blood Pressure Screening: Patient was found to have an elevated blood pressure and was referred to their primary care doctor for recheck and further treatment Differential diagnosis: Etiologies such as viral syndrome, tonsillitis, streptococcal pharyngitis, mononucleosis, peritonsillar abscess, retropharyngeal abscess, otitis, pneumonia , influenza, as well as others were entertained. This is a 61-year-old female who is well-known to the emergency department who presents to the emergency department complaining of chest wall pain. The patient is tender to palpation to her anterior chest wall and states that this is chest pain. In addition the patient has a cough and sore throat. Therefore I do not feel that this is cardiac ischemia related. The patient was sent for a chest x-ray which showed pulmonary edema. For this reason the patient was given an extra dose of her Lasix. I will note that the patient is not hypoxic and I feel safe enough to be discharged home. The patient was also given Toradol for pain. Patient and were in agreement with the treatment plan. Impression Primary Impression: Chest wall pain Scribe Attestation The scribe's documentation has been prepared under my direction and personally reviewed by me in its entirety. I confirm that the note above accurately reflects all work, treatment, procedures, and medical decision making performed by me. Departure Information Dispostion Home / Self-Care Prescriptions Azithromycin (ZITHROMAX) 250 Mg Tab 250 MG PO DAILY, #4 TAB Prov: Wil Coffman MD 03/29/17 Referrals Manoj Goins D.O. (PCP) Forms HOME CARE DOCUMENTATION FORM, IMPORTANT VISIT INFORMATION Patient Instructions My [facility] Additional Instructions Follow up with DR Goins's office You were found to have an elevated blood pressure today (>120 sytolic or >90 diastolic). Per medicare guidelines, you need to follow up with this blood pressure screening with your Primary Care Physician (PCP). For a new PCP call [phone]. You have been examined and treated today on an emergency basis only. This is not a substitute for, or an effort to provide, complete comprehensive medical care. It is impossible to recognize and treat all injuries or illnesses in a single emergency department visit. It is therefore important that you follow up closely with Dr Goins. Call as soon as possible for an appointment. Thank you for your time and consideration. I look forward to speaking with you again soon. Please don't hesitate to call us if you have any questions.
--- NOTE | 2017-03-29 16:44 | DIAGNOSTIC IMAGING REPORT ---
CHEST ONE VIEW PORTABLE CLINICAL HISTORY: Pt c/o SOB dyspnea COMPARISON STUDY: 02/10/2017 FINDINGS: Mild increase in cardiac size compared to the prior study. Increased pulmonary vasculature consistent with developing congestive failure. Diaphragms are smooth. Calcific angles are sharp. IMPRESSION: Congestive heart failure The above report was generated using voice recognition software. It may contain grammatical, syntax or spelling errors. Electronically signed by: Javan Dey M.D. 03/29/2017 4:43 PM Dictated Date/Time: 03/29/2017 4:42 PM
[2017-03-29] MEDS ORDERED: FUROSEMIDE 40 MG TAB PO STA (16:50)
[2017-03-29] MEDS ORDERED: ALBUTEROL HFA 8 GM INHALER INH STA (17:10)
[2017-03-29] MEDS ORDERED: AZIT250T5 PO (17:10)
[2017-03-29 17:40] VITALS: BP 143/53; PULSE 74; O2SAT 93
== END 2017-03-29 17:40 | disposition home or self-care (01) ==
LOC: C.EDB 15:24 → C.EDA 17:40
DX: R07.89 Other chest pain (principal); I45.10 Unspecified right bundle-branch block; I48.91 Unspecified atrial fibrillation; E11.9 Type 2 diabetes mellitus without complications; I10 Essential (primary) hypertension; K21.9 Gastro-esophageal reflux disease without esophagitis; E03.9 Hypothyroidism, unspecified; F41.9 Anxiety disorder, unspecified; K31.84 Gastroparesis; J44.9 Chronic obstructive pulmonary disease, unspecified; J45.909 Unspecified asthma, uncomplicated; F32.9 Major depressive disorder, single episode, unspecified; G47.33 Obstructive sleep apnea (adult) (pediatric); M19.90 Unspecified osteoarthritis, unspecified site; F17.200 Nicotine dependence, unspecified, uncomplicated; Z86.718 Personal history of other venous thrombosis and embolism; Z86.19 Personal history of other infectious and parasitic diseases; Z90.710 Acquired absence of both cervix and uterus; Z90.49 Acquired absence of other specified parts of digestive tract; Z98.51 Tubal ligation status; Z79.01 Long term (current) use of anticoagulants; Z79.4 Long term (current) use of insulin; Z79.899 Other long term (current) drug therapy; Z83.3 Family history of diabetes mellitus; Z82.49 Family history of ischemic heart disease and other diseases of the circulatory system; Z88.8 Allergy status to other drugs, medicaments and biological substances; Z91.018 Allergy to other foods; Z91.030 Bee allergy status; Z91.011 Allergy to milk products

== ENCOUNTER 2017-04-01 13:35 | Emergency (ER) | payer OTHER ==
[~2017-04-01] VITALS: Ht 162.6 cm; Wt 86.6 kg
[~2017-04-01 13:35] MED LIST changes: -ADVIN25/60 INH; -AMT/50 PO; +AZIT250T5 PO; -CETI10TA84 PO; -EFFSR75 PO; -EPP3/2 IM; -LEVO50TA PO; -LPT40 PO; -MULTTAB58 PO; -NRN800 PO; -NRV/10 PO; -OXGN; -SPRIN/30 INH; -WARF-246 PO; -ZYP25 PO
[2017-04-01 13:44] VITALS: TEMP 36.9; Ht 162.6 cm; Wt 86.6 kg
[2017-04-01 13:51] VITALS: O2SAT 95
[2017-04-01] MEDS ORDERED: LEVALBUTEROL 1.25MG/0.5ML NEB INH STA (13:52)
[2017-04-01] MEDS ORDERED: IPRATROPIUM BROMIDE NEB SOLN 0.02% 2.5 ML VIAL INH STA (13:52)
[2017-04-01 14:50] LABS: BASO % 0.3 %; BASO ABS # 0.02 K/uL (0-0.2); COMPLETE YES; EOS % 1.5 %; HEMATOCRIT 39.2 % (37-47); IG% 0.2 %; LYMPH % 18.3 %; LYMPH ABS # 1.13 K/uL (1.2-3.4); MEAN CELL VOLUME 94.9 fL (80-100); MEAN CORPUSCULAR HEMOGLOBIN 31.7 pg (25-34); MEAN CORPUSCULAR HGB CONC 33.4 g/dl (32-36); MEAN PLATELET VOLUME 10.6 fL (7.4-10.4); MONO % 12.2 %; NEUT % 67.5 %; PLATELET COUNT 202 K/uL (130-400); RED BLOOD COUNT 4.13 M/uL (4.2-5.4); WHITE BLOOD COUNT 6.17 K/uL (4.8-10.8)
[2017-04-01 15:00] LABS: INR 2.2 (0.9-1.1); PARTIAL THROMBOPLASTIN RATIO 1.7; PROTHROMBIN TIME (PATIENT) 24.9 SECONDS (9.0-12.0)
--- NOTE | 2017-04-01 15:06 | DIAGNOSTIC IMAGING REPORT ---
CHEST ONE VIEW PORTABLE HISTORY: 61 years Female EVALUATE RESPIRATORY DISTRESS.DYSPNEA COMPARISON: 03/29/2017 TECHNIQUE: Portable upright AP view of the chest FINDINGS: Cardiac silhouette is again enlarged. There is atherosclerosis of the aorta. Cardiac valvular prosthesis again seen. There is persistent pulmonary vascular congestion background reticulation and hazy bibasilar opacities. No large pleural effusion or pneumothorax is seen. Appearance of the lungs appear stable from comparison. Surgical clips are seen projected over the right upper hemithorax. The bones are grossly intact. IMPRESSION: Cardiomegaly with stable pulmonary edema pattern. The above report was generated using voice recognition software. It may contain grammatical, syntax or spelling errors. Electronically signed by: Ye Alva M.D. 04/01/2017 3:05 PM Dictated Date/Time: 04/01/2017 3:03 PM
--- NOTE | 2017-04-01 15:11 | EMERGENCY ROOM VISIT NOTE ---
History Report prepared by [place]: John Oviedo Under the Supervision of: Dr. Jame Titus M.D. First contact with patient: 13:46 Chief Complaint: SHORTNESS OF BREATH Stated Complaint: DIFFICULTY BREATHING History of Present Illness The patient is a 61 year old female who presents to the Emergency Room with complaints of constant shortness of breath beginning this morning. The patient states that she was here, in the ED, four days ago for chest pain and was told that she had a little bit of fluid on her lungs. She reports that she was given Zithromax and an inhaler. The patient notes that she is more short of breath than before, but her chest pain has gotten better. She states that she was on 3L of oxygen at home, and she was still having a hard time breathing. The patient reports that she does not have a nebulizer at home, but she did receive a breathing treatment today. She notes that she has been experiencing chills, fevers, and mild edema to her legs. The patient denies coughing and urinary symptoms. She states that she is currently on Lasix and Coumadin. Source of History: patient Onset: 4 days ago Position: other (global) Quality: other (shortness of breath) Timing: constant Associated Symptoms: + fevers, + chills, No cough, No urinary symptoms Note: Associated symptoms: mild edema to her legs Review of Systems See HPI for pertinent positives & negatives. A total of 10 systems reviewed and were otherwise negative. Past Medical & Surgical Medical Problems: (1) Acute electrocardiogram changes (2) Asthma (3) Atrial fibrillation (4) Bipolar disorder (5) C. difficile colitis (6) Chronic abdominal pain (7) Chronic cor pulmonale (8) Chronic pain (9) Chronic respiratory failure (10) COPD, severe (11) Depression (12) DM type 2 (diabetes mellitus, type 2) (13) DVT (deep venous thrombosis) (14) Gastroparesis (15) GERD (gastroesophageal reflux disease) (16) History of ear infection (17) HTN (hypertension) (18) Hypokalemia (19) Hypothyroidism (20) [place] toxicity (21) DARIUS on CPAP (22) Osteoarthritis Surgical Problems: (1) H/O: hysterectomy (2) Hx of appendectomy (3) Hx of cholecystectomy (4) Hx of lumpectomy (5) Hx of mitral valve repair (6) Hx of tubal ligation (7) Hx of umbilical hernia repair Family History Diabetes mellitus MOTHER FH: Crohn's disease SISTER Hypertension MOTHER Social History Smoking Status: Current Every Day Smoker Alcohol Use: none Drug Use: none Marital Status: Housing Status: lives with significant other Occupation Status: disabled Current/Historical Medications Scheduled Amitriptyline HCl (Amitriptyline HCl), 50 MG PO HS Amlodipine Besylate (Amlodipine Besylate), 10 MG PO QAM Atorvastatin (Atorvastatin Calcium), 40 MG PO HS Azithromycin (Zithromax), 250 MG PO DAILY Calcitriol (Calcitriol), 0.5 MCG PO QAM Cetirizine (Zyrtec), 10 MG PO QAM Cholecalciferol (Vitamin D), 1,000 INTER.UNIT PO DAILY Colestipol HCl (Colestid), 1 GM PO BID Fentanyl (Duragesic), 50 MCG TOP [id number] Fluticasone Prop/Salmeterol (Advair Diskus 250/50 60 Dose), 1 PUFF INH BID Furosemide (Furosemide), 40 MG PO BID Gabapentin (Gabapentin), 800 MG PO TID Home O2 Therapy (Oxygen), 3 LITERS NA CONTINOUS Insulin Glargine (Lantus Solostar), 40 UNITS SC BID Levothyroxine Sodium (Synthroid), 50 MCG PO QAM Metoclopramide Hcl (Metoclopramide Hcl), 5 MG PO ACHS Metolazone (Zaroxolyn), 2.5 MG PO DAILY Metoprolol Tartrate (Lopressor) (Lopressor), 75 MG PO BID Multiple Vitamin (Multivitamin), 1 TAB PO QAM Mupirocin (Bactroban), 1 APPLN TOP BID Olanzapine (Olanzapine), 2.5 MG PO HS Pantoprazole (Pantoprazole Sodium), 40 MG PO HS Potassium Chloride Microencaps (Potassium Chloride Cr), 20 MEQ PO BID Ranitidine Hcl (Zantac), 300 MG PO HS Tiotropium Boyds (Spiriva Handihaler), 1 CAP INH DAILY Trazodone HCl (Trazodone HCl), 300 MG PO HS Venlafaxine Hcl (Effexor Extended Rel), 225 MG PO QAM Warfarin Sodium (Warfarin Sodium), 5 MG PO 2XWK Warfarin Sodium (Warfarin Sodium), 7.5 MG PO 5XWK Scheduled PRN Albuterol Sulf (Proventil 0.083% 2.5MG/3ML), 2.5 MG INH Q6H PRN for Wheezing Diphenoxylate/Atropine (Lomotil 2.5-0.025 mg), 1 TAB PO UD PRN for Diarrhea Epinephrine (Epipen), 0.3 MG IM UD PRN for ALLERGIC REACTION Hydroxyzine Pamoate (Vistaril), 25 MG PO Q6H PRN for Itching Loperamide Hcl (Imodium), 2 MG PO BID PRN for Loose Stool(s) Lorazepam (Lorazepam), 0.5 MG PO HS PRN for Anxiety Methocarbamol (Methocarbamol), 500 MG PO TID PRN for Muscle Relaxer Ondansetron (Ondansetron HCl), 8 MG PO BID PRN for Nausea Oxycodone HCl (Oxycodone HCl), 10 MG PO Q6H PRN for Pain Allergies Coded Allergies: BEE STING (Verified Allergy, Severe, SWELLING, 03/29/17) Lisinopril (Verified Allergy, Intermediate, FACE SWELLING, 03/29/17) Metronidazole (Verified Allergy, Mild, FACE SWELLING, 03/29/17) [place] (Verified Allergy, Mild, HIVES, 03/29/17) Alprazolam (Verified Allergy, Unknown, RED FACE, FACE SWELLING, 03/29/17) Lactose (Verified Adverse Reaction, Intermediate, VOMTING DIARRHEA ABDOMINAL PAIN, 03/29/17) Prednisone (Verified Adverse Reaction, Mild, unknown, 03/29/17) Colesevelam (Verified Adverse Reaction, Unknown, unknown, 03/29/17) [place] (Verified Adverse Reaction, Unknown, jitters, 03/29/17) Uncoded Allergies: BBQ CHIPS (Allergy, Unknown, FACE SWELLING, 12/22/15) Physical Exam Vital Signs Date Time Temp Pulse Resp B/P (MAP) Pulse Ox O2 Delivery O2 Flow Rate FiO2 04/01/17 19:08 90 16 121/58 99 04/01/17 18:00 86 16 158/73 96 Nasal Cannula 4.0 04/01/17 17:00 86 20 129/49 98 Nasal Cannula 4.0 04/01/17 16:00 75 20 141/71 97 Nasal Cannula 4.0 04/01/17 15:01 75 18 126/61 98 Nasal Cannula 4.0 04/01/17 14:00 75 22 146/76 97 Nasal Cannula 4.0 04/01/17 13:51 95 Nasal Cannula 4.0 04/01/17 13:51 95 Nasal Cannula 4.0 04/01/17 13:49 76 04/01/17 13:44 95 Nasal Cannula 4.0 04/01/17 13:44 36.9 88 22 134/71 95 Nasal Cannula 4.0 Physical Exam GENERAL: Patient is in no acute distress. HEENT: No acute trauma, normocephalic atraumatic, mucous membranes moist, no nasal congestion, no scleral icterus. NECK: No stridor, no adenopathy, no meningismus, trachea is midline. LUNGS: Bilateral wheezing, some crackles heard, breath sounds diminished on right especially, no respiratory distress. HEART: Cannot auscultate cardiac tones secondary to the lung sounds. ABDOMEN: Soft, nontender, bowel sounds positive, no hernias, no peritonitis. EXTREMITIES: No cyanosis or edema, full range of motion of all the joints without pain or difficulty, no signs for acute trauma. NEUROLOGIC: Oriented x 3, no acute motor or sensory deficits, no focal weakness. SKIN: No rash, no jaundice, no diaphoresis. Medical Decision & Procedures ER Provider Diagnostic Interpretation: X-ray results as stated below per interpretation by me and the radiologist: CHEST ONE VIEW PORTABLE HISTORY: 61 years Female EVALUATE RESPIRATORY DISTRESS.DYSPNEA COMPARISON: 03/29/2017 TECHNIQUE: Portable upright AP view of the chest FINDINGS: Cardiac silhouette is again enlarged. There is atherosclerosis of the aorta. Cardiac valvular prosthesis again seen. There is persistent pulmonary vascular congestion background reticulation and hazy bibasilar opacities. No large pleural effusion or pneumothorax is seen. Appearance of the lungs appear stable from comparison. Surgical clips are seen projected over the right upper hemithorax. The bones are grossly intact. IMPRESSION: Cardiomegaly with stable pulmonary edema pattern. The above report was generated using voice recognition software. It may contain grammatical, syntax or spelling errors. Electronically signed by: Ye Alva M.D. 04/01/2017 3:05 PM Dictated Date/Time: 04/01/2017 3:03 PM Laboratory Results 04/01/17 14:09 Red Blood Count 4.13, Mean Corpuscular Volume 94.9, Mean Corpuscular Hemoglobin 31.7, Mean Corpuscular Hemoglobin Concent 33.4, Mean Platelet Volume 10.6, Neutrophils (%) (Auto) 67.5, Lymphocytes (%) (Auto) 18.3, Monocytes (%) (Auto) 12.2, Eosinophils (%) (Auto) 1.5, Basophils (%) (Auto) 0.3, Neutrophils # (Auto ) 4.17, Lymphocytes # (Auto) 1.13, Monocytes # (Auto) 0.75, Eosinophils # (Auto ) 0.09, Basophils # (Auto) 0.02 04/01/17 14:09 Test 04/01/17 14:09 04/01/17 16:33 White Blood Count 6.17 K/uL (4.8-10.8) Red Blood Count 4.13 M/uL (4.2-5.4) Hemoglobin 13.1 g/dL (12.0-16.0) Hematocrit 39.2 % (37-47) Mean Corpuscular Volume 94.9 fL (80-100) Mean Corpuscular Hemoglobin 31.7 pg (25-34) Mean Corpuscular Hemoglobin Concent 33.4 g/dl (32-36) Platelet Count 202 K/uL (130-400) Mean Platelet Volume 10.6 fL (7.4-10.4) Neutrophils (%) (Auto) 67.5 % Lymphocytes (%) (Auto) 18.3 % Monocytes (%) (Auto) 12.2 % Eosinophils (%) (Auto) 1.5 % Basophils (%) (Auto) 0.3 % Neutrophils # (Auto) 4.17 K/uL (1.4-6.5) Lymphocytes # (Auto) 1.13 K/uL (1.2-3.4) Monocytes # (Auto) 0.75 K/uL (0.11-0.59) Eosinophils # (Auto) 0.09 K/uL (0-0.5) Basophils # (Auto) 0.02 K/uL (0-0.2) RDW Standard Deviation 44.6 fL (36.4-46.3) RDW Coefficient of Variation 12.9 % (11.5-14.5) Immature Granulocyte % (Auto) 0.2 % Immature Granulocyte # (Auto) 0.01 K/uL (0.00-0.02) Prothrombin Time 24.9 SECONDS (9.0-12.0) Prothromb Time International Ratio 2.2 (0.9-1.1) Activated Partial Thromboplast Time 45.0 SECONDS (21.0-31.0) Partial Thromboplastin Ratio 1.7 Anion Gap 5.0 mmol/L (3-11) Est Creatinine Clear Calc Drug Dose 49.0 ml/min Estimated GFR () 51.6 Estimated GFR (Non- 44.6 BUN/Creatinine Ratio 12.6 (10-20) Calcium Level 9.1 mg/dl (8.5-10.1) Total Bilirubin 0.3 mg/dl (0.2-1) Aspartate Amino Transf (AST/SGOT) 23 U/L (15-37) Alanine Aminotransferase (ALT/SGPT) 35 U/L (12-78) Alkaline Phosphatase 87 U/L (45-117) Troponin I < 0.015 ng/ml (0-0.045) Pro-B-Type Natriuretic Peptide 665 pg/ml (0-900) Total Protein 6.8 gm/dl (6.4-8.2) Albumin 2.8 gm/dl (3.4-5.0) Globulin 4.0 gm/dl (2.5-4.0) Albumin/Globulin Ratio 0.7 (0.9-2) Beta-Hydroxybutyric Acid 0.76 mg/dL (0.2-2.81) Bedside Glucose 353 mg/dl (70-90) Laboratory results reviewed by me. Medications Administered Medications (Trade) Dose Ordered Sig/Artemio Route Start Time Stop Time Status Last Admin Dose Admin Levalbuterol (Xopenex 1.25MG/ 0.5ML Neb) 1.25 mg NOW STAT INH 04/01/17 13:52 04/01/17 13:53 DC 04/01/17 14:22 1.25 MG Ipratropium Boyds (Atrovent 0.02% 0.5MG/2.5ML Neb) 0.5 mg NOW STAT INH 04/01/17 13:52 04/01/17 13:53 DC 04/01/17 14:37 0.5 MG Insulin Human Regular (novoLIN-R U-100 PER UNIT) 10 units NOW STAT IV 04/01/17 15:41 04/01/17 15:42 DC 04/01/17 15:50 10 UNITS Oxycodone HCl (Roxicodone Immediate Rel Tab) 10 mg NOW STAT PO 04/01/17 16:31 04/01/17 16:33 DC 04/01/17 16:47 10 MG Insulin Human Regular (novoLIN-R U-100 PER UNIT) 10 units NOW STAT IV 04/01/17 17:08 04/01/17 17:09 DC 04/01/17 17:25 10 UNITS Insulin Glargine (Lantus Per Unit) 40 units TODAY@1717 SQ 04/01/17 17:17 04/01/17 23:00 04/01/17 17:52 40 UNITS ECG Indication: SOB/dyspnea Rate (beats per minute): 74 Rhythm: sinus rhythm Findings: PAC, RBBB, no acute ischemic change ED Course 1347: The patient was evaluated in room A02. A complete history and physical exam was performed. 1352: Ordered Ipratropium Boyds 0.5 mg INH, Levalbuterol 1.25 mg INH 1541: Ordered Insulin Human Regular 10 units IV 1631: Ordered Oxycodone HCl 10 mg PO 1708: Ordered Insulin Human Regular 10 units IV 1717: Ordered Insulin Glargine 40 units SQ 1852: Reevaluated the patient. Discussed results and discharge instructions: she verbalized understanding and agreement. The patient is ready for discharge. Medical Decision Differential diagnosis includes: CHF, pneumonia, bronchitis, cardiac ischemia, fluid overload, anemia, electrolyte imbalance, failed outpatient treatment Medication Reconciliation: I attest that I have personally reviewed the patient' s current medication list. Blood pressure was mildly elevated and likely situational. Outpatient blood pressure monitoring/follow-up is not required. There is no leukocytosis or concerning anemia. Renal panel testing shows hyperglycemia with a sugar of over 500-no evidence for acidosis. No hepatitis. EKG shows a sinus rhythm with PACs and a right bundle-branch block. No acute ischemia. Cardiac enzyme testing 1 is not consistent with acute cardiac injury. Chest film shows some CHF which is chronic, no pneumonia or pneumothorax. BNP is not elevated making severe CHF less likely. INR was therapeutic for someone using Coumadin. The patient received IV insulin 2 doses. She was then given her typical dose of subcutaneous insulin before she had her dinner. She received a Xopenex Atrovent neb. With the above treatment, the patient is breathing at baseline. Her sugar is now about 165-this was her last BSG. She does feel able to go home, I think this is reasonable. I think she has an acute bronchitis with a flare of her COPD. She has an appointment with her doctor in a few days for a recheck. She will continue her Zithromax and she is going to switch to using her nebulizer at home instead of her inhaler. If her breathing is worsening, she can return for reassessment. Impression Primary Impression: Shortness of breath Additional Impressions: COPD exacerbation Hyperglycemia Scribe Attestation The scribe's documentation has been prepared under my direction and personally reviewed by me in its entirety. I confirm that the note above accurately reflects all work, treatment, procedures, and medical decision making performed by me. Departure Information Dispostion Home / Self-Care Referrals Manoj Goins D.O. (PCP) Forms HOME CARE DOCUMENTATION FORM, IMPORTANT VISIT INFORMATION Patient Instructions My [facility] Additional Instructions switch to the nebulizer every 4 hours continue the zithromax all other meds the same see your doctor friday as scheduled return if worsening or start running a fever Problem Qualifiers
[2017-04-01 15:39] LABS: ALB/GLOB RATIO 0.7 (0.9-2); ALKALINE PHOSPHATASE 87 U/L (45-117); ALT/SGPT 35 U/L (12-78); AST/SGOT 23 U/L (15-37); BLOOD UREA NITROGEN 16 mg/dl (7-18); BUN/CREATININE RATIO 12.6 (10-20); CALCIUM 9.1 mg/dl (8.5-10.1); CARBON DIOXIDE 34 mmol/L (21-32); CHLORIDE 96 mmol/L (98-107); GLUCOSE 577 mg/dl (70-99); POTASSIUM 4.2 mmol/L (3.5-5.1); SODIUM 135 mmol/L (136-145)
[2017-04-01] MEDS ORDERED: NovoLIN-R INSULIN PER UNIT CHARGE IV STA ×2 (15:41→17:08)
[2017-04-01 15:51] LABS: BETA-HYDROXYBUTYRATE 0.76 mg/dL (0.2-2.81)
[2017-04-01] MEDS ORDERED: OXYCODONE HCL IR 5 MG TAB (IMMEDIATE RELEASE) PO STA (16:31)
[2017-04-01] MEDS ORDERED: LANTUS PER UNIT CHARGE SQ SCH (17:17)
[2017-04-01] MEDS ORDERED: INSULIN GLARGINE SOLOSTAR 100 UNITS/ML 3 ML PEN SC STA (17:17)
[2017-04-01 19:08] VITALS: BP 121/58; PULSE 90; O2SAT 99
[2017-04-10] MEDS ORDERED: DXY100 PO (14:27)
[2017-04-10] MEDS ORDERED: INSDGIPEN SC (14:27)
[2017-04-10] MEDS ORDERED: PRD20 PO (14:27)
[2017-04-10] MEDS ORDERED: NVLGIPEN SC (14:27)
[2017-04-10] MEDS ORDERED: PRT/40 PO (14:27)
[2017-04-20] MEDS ORDERED: INSDGIPEN SC (15:50)
[2017-04-23] MEDS ORDERED: FURO-85 PO (14:29)
[2017-04-23] MEDS ORDERED: POTA10TA79 PO (14:30)
[2017-04-23] MEDS ORDERED: PRD20 PO (14:30)
[2017-04-23] MEDS ORDERED: DXY100 PO (14:30)
[2017-05-03] MEDS ORDERED: XPNINS1255 INH (16:30)
[2017-05-03] MEDS ORDERED: GUAI1TAB68 PO (16:30)
[2017-05-03] MEDS ORDERED: ATRINS INH (16:30)
[2017-05-03] MEDS ORDERED: PRD20 PO (16:54)
[2017-05-03] MEDS ORDERED: NVLGIPEN SC (16:54)
[2017-05-03] MEDS ORDERED: INSDGIPEN SC (16:54)
[2017-05-05] MEDS ORDERED: LEVO50TA PO (13:11)
== END 2017-04-01 19:09 | disposition home or self-care (01) ==
LOC: EDBD 13:35 → C.EDA 13:37
DX: J44.1 Chronic obstructive pulmonary disease with (acute) exacerbation (principal); E11.65 Type 2 diabetes mellitus with hyperglycemia; Z99.81 Dependence on supplemental oxygen; Z79.01 Long term (current) use of anticoagulants; J45.909 Unspecified asthma, uncomplicated; I48.91 Unspecified atrial fibrillation; F31.9 Bipolar disorder, unspecified; G89.29 Other chronic pain; J96.10 Chronic respiratory failure, unspecified whether with hypoxia or hypercapnia; E11.43 Type 2 diabetes mellitus with diabetic autonomic (poly)neuropathy; K21.9 Gastro-esophageal reflux disease without esophagitis; I10 Essential (primary) hypertension; E03.9 Hypothyroidism, unspecified; G47.33 Obstructive sleep apnea (adult) (pediatric); M19.90 Unspecified osteoarthritis, unspecified site; Z90.710 Acquired absence of both cervix and uterus; Z90.49 Acquired absence of other specified parts of digestive tract; Z98.51 Tubal ligation status; Z83.3 Family history of diabetes mellitus; Z82.49 Family history of ischemic heart disease and other diseases of the circulatory system; F17.210 Nicotine dependence, cigarettes, uncomplicated; Z79.4 Long term (current) use of insulin; Z79.899 Other long term (current) drug therapy

== ENCOUNTER 2017-04-03 10:14 | Emergency (ER) | payer OTHER ==
[~2017-04-03] VITALS: Ht 162.6 cm; Wt 89.5 kg
[2017-04-03 10:20] VITALS: TEMP 36.5; Ht 162.6 cm; Wt 89.5 kg
[2017-04-03] MEDS ORDERED: ALBUT/IPRATROP 3MG/0.5MG NEB 3 ML VIAL INH STA (10:30)
[2017-04-03 10:58] LABS: BASO % 0.1 %; BASO ABS # 0.01 K/uL (0-0.2); COMPLETE YES; EOS % 1.7 %; HEMATOCRIT 41.2 % (37-47); IG% 0.1 %; LYMPH % 11.1 %; LYMPH ABS # 0.87 K/uL (1.2-3.4); MEAN CORPUSCULAR HEMOGLOBIN 31.2 pg (25-34); MEAN CORPUSCULAR HGB CONC 33.5 g/dl (32-36); MEAN PLATELET VOLUME 9.9 fL (7.4-10.4); MONO % 9.3 %; NEUT % 77.7 %; PLATELET COUNT 242 K/uL (130-400); RED BLOOD COUNT 4.43 M/uL (4.2-5.4); WHITE BLOOD COUNT 7.85 K/uL (4.8-10.8)
[2017-04-03] MEDS ORDERED: KETOROLAC TROMETHAMINE 30 MG/ML VIAL IV STA (10:58)
[2017-04-03] MEDS ORDERED: DiphenhydrAMINE HCL 50 MG/ML VIAL IV STA (10:58)
--- NOTE | 2017-04-03 11:01 | DIAGNOSTIC IMAGING REPORT ---
CHEST ONE VIEW PORTABLE HISTORY: 61 years Female acute shortness of breath COMPARISON: Portable chest radiograph 04/01/2017 TECHNIQUE: Portable upright AP view of the chest FINDINGS: Cardiac silhouette is again enlarged. There is atherosclerosis of the aorta. Cardiac valvular prosthesis is again seen. No pneumothorax. Mild to moderate pulmonary edema pattern is again seen with pulmonary vascular congestion, background reticular opacities and hazy perihilar and bibasilar alveolar densities. There is blunting of the costophrenic angle suggesting trace pleural effusions. There is mildly decreased aeration of the lung bases. Bones are grossly intact. Surgical clips are seen projecting over the right upper thorax. IMPRESSION: 1. Cardiomegaly with persistent pulmonary edema pattern and mildly decreased aeration of the lung bases. 2. Trace pleural effusions. The above report was generated using voice recognition software. It may contain grammatical, syntax or spelling errors. Electronically signed by: Ye Alva M.D. 04/03/2017 11:00 AM Dictated Date/Time: 04/03/2017 10:57 AM
[2017-04-03 11:20] LABS: ALT/SGPT 34 U/L (12-78); AST/SGOT 21 U/L (15-37); BLOOD UREA NITROGEN 13 mg/dl (7-18); CALCIUM 9.6 mg/dl (8.5-10.1); CARBON DIOXIDE 37 mmol/L (21-32); CHLORIDE 98 mmol/L (98-107); CREATININE 0.95 mg/dl (0.60-1.20); GLUCOSE 274 mg/dl (70-99); POTASSIUM 4.2 mmol/L (3.5-5.1); SODIUM 139 mmol/L (136-145)
[2017-04-03 11:23] LABS: ALB/GLOB RATIO 0.7 (0.9-2); ALKALINE PHOSPHATASE 85 U/L (45-117)
[2017-04-03 13:15] VITALS: O2SAT 96
--- NOTE | 2017-04-03 13:27 | EMERGENCY ROOM VISIT NOTE ---
History Report prepared by [place]: Luciana Williamson Under the Supervision of: Dr. Wil Bravo D.O. First contact with patient: 10:21 Stated Complaint: RESPIRATORY History of Present Illness The patient is a 61 year old female who presents to the Emergency Room with complaints of worsening SOB starting 1 week ago. For the past 2 days, she has been unable to get out of bed because she feels SOB. She reports intermittent fevers, chills, and chest pain. She thinks her symptoms might be due to her COPD. She does not suspect pneumonia. She is currently not on steroids. Source of History: patient Onset: 1 week ago Position: other (global) Quality: other (SOB) Timing: worsening Associated Symptoms: + fevers, + chills, + chest pain Review of Systems See HPI for pertinent positives & negatives. A total of 10 systems reviewed and were otherwise negative. Past Medical & Surgical Medical Problems: (1) Acute electrocardiogram changes (2) Asthma (3) Atrial fibrillation (4) Bipolar disorder (5) C. difficile colitis (6) Chronic abdominal pain (7) Chronic cor pulmonale (8) Chronic pain (9) Chronic respiratory failure (10) COPD, severe (11) Depression (12) DM type 2 (diabetes mellitus, type 2) (13) DVT (deep venous thrombosis) (14) Gastroparesis (15) GERD (gastroesophageal reflux disease) (16) History of ear infection (17) HTN (hypertension) (18) Hypokalemia (19) Hypothyroidism (20) [place] toxicity (21) DARIUS on CPAP (22) Osteoarthritis Surgical Problems: (1) H/O: hysterectomy (2) Hx of appendectomy (3) Hx of cholecystectomy (4) Hx of lumpectomy (5) Hx of mitral valve repair (6) Hx of tubal ligation (7) Hx of umbilical hernia repair Family History Diabetes mellitus MOTHER FH: Crohn's disease SISTER Hypertension MOTHER Social History Smoking Status: Current Every Day Smoker Alcohol Use: none Drug Use: none Marital Status: Housing Status: lives with significant other Occupation Status: disabled Current/Historical Medications Scheduled Amitriptyline HCl (Amitriptyline HCl), 50 MG PO HS Amlodipine Besylate (Amlodipine Besylate), 10 MG PO QAM Atorvastatin (Atorvastatin Calcium), 40 MG PO HS Azithromycin (Zithromax), 250 MG PO DAILY Calcitriol (Calcitriol), 0.5 MCG PO QAM Cetirizine (Zyrtec), 10 MG PO QAM Cholecalciferol (Vitamin D), 1,000 INTER.UNIT PO DAILY Colestipol HCl (Colestid), 1 GM PO BID Fentanyl (Duragesic), 50 MCG TOP CQ72HR Fluticasone Prop/Salmeterol (Advair Diskus 250/50 60 Dose), 1 PUFF INH BID Furosemide (Furosemide), 40 MG PO BID Gabapentin (Gabapentin), 800 MG PO TID Home O2 Therapy (Oxygen), 3 LITERS NA CONTINOUS Insulin Glargine (Lantus Solostar), 40 UNITS SC BID Levothyroxine Sodium (Synthroid), 50 MCG PO QAM Metoclopramide Hcl (Metoclopramide Hcl), 5 MG PO ACHS Metolazone (Zaroxolyn), 2.5 MG PO DAILY Metoprolol Tartrate (Lopressor) (Lopressor), 75 MG PO BID Multiple Vitamin (Multivitamin), 1 TAB PO QAM Mupirocin (Bactroban), 1 APPLN TOP BID Olanzapine (Olanzapine), 2.5 MG PO HS Pantoprazole (Pantoprazole Sodium), 40 MG PO HS Potassium Chloride Microencaps (Potassium Chloride Cr), 20 MEQ PO BID Ranitidine Hcl (Zantac), 300 MG PO HS Tiotropium [place] (Spiriva Handihaler), 1 CAP INH DAILY Trazodone HCl (Trazodone HCl), 300 MG PO HS Venlafaxine Hcl (Effexor Extended Rel), 225 MG PO QAM Warfarin Sodium (Warfarin Sodium), 5 MG PO 2XWK Warfarin Sodium (Warfarin Sodium), 7.5 MG PO 5XWK Scheduled PRN Albuterol Sulf (Proventil 0.083% 2.5MG/3ML), 2.5 MG INH Q6H PRN for Wheezing Diphenoxylate/Atropine (Lomotil 2.5-0.025 mg), 1 TAB PO UD PRN for Diarrhea Epinephrine (Epipen), 0.3 MG IM UD PRN for ALLERGIC REACTION Hydroxyzine Pamoate (Vistaril), 25 MG PO Q6H PRN for Itching Loperamide Hcl (Imodium), 2 MG PO BID PRN for Loose Stool(s) Lorazepam (Lorazepam), 0.5 MG PO HS PRN for Anxiety Methocarbamol (Methocarbamol), 500 MG PO TID PRN for Muscle Relaxer Ondansetron (Ondansetron HCl), 8 MG PO BID PRN for Nausea Oxycodone HCl (Oxycodone HCl), 10 MG PO Q6H PRN for Pain Allergies Coded Allergies: BEE STING (Verified Allergy, Severe, SWELLING, 03/29/17) Lisinopril (Verified Allergy, Intermediate, FACE SWELLING, 03/29/17) Metronidazole (Verified Allergy, Mild, FACE SWELLING, 03/29/17) [place] (Verified Allergy, Mild, HIVES, 03/29/17) Alprazolam (Verified Allergy, Unknown, RED FACE, FACE SWELLING, 03/29/17) Lactose (Verified Adverse Reaction, Intermediate, VOMTING DIARRHEA ABDOMINAL PAIN, 03/29/17) Prednisone (Verified Adverse Reaction, Mild, unknown, 03/29/17) Colesevelam (Verified Adverse Reaction, Unknown, unknown, 03/29/17) [place] (Verified Adverse Reaction, Unknown, jitters, 03/29/17) Uncoded Allergies: BBQ CHIPS (Allergy, Unknown, FACE SWELLING, 12/22/15) Physical Exam Vital Signs Date Time Temp Pulse Resp B/P (MAP) Pulse Ox O2 Delivery O2 Flow Rate FiO2 04/03/17 13:23 73 04/03/17 13:15 96 Nasal Cannula 3.0 04/03/17 11:43 65 18 124/59 100 Nebulizer 04/03/17 10:34 70 04/03/17 10:20 36.5 78 14 135/40 92 Nasal Cannula 3.0 04/03/17 10:20 92 Nasal Cannula 3.0 04/03/17 10:20 92 Nasal Cannula 3.0 Physical Exam CONSTITUTIONAL/VITAL SIGNS: Reviewed / noted above. GENERAL: Non-toxic in appearance. INTEGUMENTARY: Warm, dry, and [place]. HEAD: Normocephalic. EYES: without scleral icterus or trauma. ENT/OROPHARYNX: clear and moist. LYMPHADENOPATHY/NECK: Is supple without lymphadenopathy or meningismus. RESPIRATORY: Upper airway rhonchi, diminished breath sounds bilaterally. CARDIOVASCULAR: Regular rate and rhythm. GI/ABDOMEN: Soft and nontender. No organomegaly or pulsatile mass. No rebound or guarding. Normal bowel sounds. EXTREMITIES: Warm and well perfused. BACK: No CVA tenderness. NEUROLOGICAL: Intact without focal deficits. PSYCHIATRIC: normal affect. MUSCULOSKELETAL: Normally developed with good muscle tone. Medical Decision & Procedures ER Provider Diagnostic Interpretation: X ray results and stated below per my interpretation and radiology interpretation. CHEST ONE VIEW PORTABLE HISTORY: 61 years Female acute shortness of breath COMPARISON: Portable chest radiograph 04/01/2017 TECHNIQUE: Portable upright AP view of the chest FINDINGS: Cardiac silhouette is again enlarged. There is atherosclerosis of the aorta. Cardiac valvular prosthesis is again seen. No pneumothorax. Mild to moderate pulmonary edema pattern is again seen with pulmonary vascular congestion, background reticular opacities and hazy perihilar and bibasilar alveolar densities. There is blunting of the costophrenic angle suggesting trace pleural effusions. There is mildly decreased aeration of the lung bases. Bones are grossly intact. Surgical clips are seen projecting over the right upper thorax. IMPRESSION: 1. Cardiomegaly with persistent pulmonary edema pattern and mildly decreased aeration of the lung bases. 2. Trace pleural effusions. The above report was generated using voice recognition software. It may contain grammatical, syntax or spelling errors. Electronically signed by: Ye Alva M.D. 04/03/2017 11:00 AM Dictated Date/Time: 04/03/2017 10:57 AM Laboratory Results 04/03/17 10:45 Red Blood Count 4.43, Mean Corpuscular Volume 93.0, Mean Corpuscular Hemoglobin 31.2, Mean Corpuscular Hemoglobin Concent 33.5, Mean Platelet Volume 9.9, Neutrophils (%) (Auto) 77.7, Lymphocytes (%) (Auto) 11.1, Monocytes (%) (Auto) 9.3, Eosinophils (%) (Auto) 1.7, Basophils (%) (Auto) 0.1, Neutrophils # (Auto) 6.10, Lymphocytes # (Auto) 0.87, Monocytes # (Auto) 0.73, Eosinophils # (Auto) 0.13, Basophils # (Auto) 0.01 04/03/17 10:45 Test 04/03/17 10:45 White Blood Count 7.85 K/uL (4.8-10.8) Red Blood Count 4.43 M/uL (4.2-5.4) Hemoglobin 13.8 g/dL (12.0-16.0) Hematocrit 41.2 % (37-47) Mean Corpuscular Volume 93.0 fL (80-100) Mean Corpuscular Hemoglobin 31.2 pg (25-34) Mean Corpuscular Hemoglobin Concent 33.5 g/dl (32-36) Platelet Count 242 K/uL (130-400) Mean Platelet Volume 9.9 fL (7.4-10.4) Neutrophils (%) (Auto) 77.7 % Lymphocytes (%) (Auto) 11.1 % Monocytes (%) (Auto) 9.3 % Eosinophils (%) (Auto) 1.7 % Basophils (%) (Auto) 0.1 % Neutrophils # (Auto) 6.10 K/uL (1.4-6.5) Lymphocytes # (Auto) 0.87 K/uL (1.2-3.4) Monocytes # (Auto) 0.73 K/uL (0.11-0.59) Eosinophils # (Auto) 0.13 K/uL (0-0.5) Basophils # (Auto) 0.01 K/uL (0-0.2) RDW Standard Deviation 42.6 fL (36.4-46.3) RDW Coefficient of Variation 12.6 % (11.5-14.5) Immature Granulocyte % (Auto) 0.1 % Immature Granulocyte # (Auto) 0.01 K/uL (0.00-0.02) Anion Gap 4.0 mmol/L (3-11) Estimated GFR () 75.5 Estimated GFR (Non- 65.1 BUN/Creatinine Ratio 14.0 (10-20) Calcium Level 9.6 mg/dl (8.5-10.1) Total Bilirubin 0.4 mg/dl (0.2-1) Aspartate Amino Transf (AST/SGOT) 21 U/L (15-37) Alanine Aminotransferase (ALT/SGPT) 34 U/L (12-78) Alkaline Phosphatase 85 U/L (45-117) Troponin I < 0.015 ng/ml (0-0.045) Total Protein 7.1 gm/dl (6.4-8.2) Albumin 3.0 gm/dl (3.4-5.0) Globulin 4.1 gm/dl (2.5-4.0) Albumin/Globulin Ratio 0.7 (0.9-2) Laboratory results as stated above per my review. Medications Administered Medications (Trade) Dose Ordered Sig/Artemio Route Start Time Stop Time Status Last Admin Dose Admin Albuterol/ Ipratropium (Duoneb) 3 ml NOW STAT INH 04/03/17 10:30 04/03/17 10:32 DC 04/03/17 11:29 3 ML Ketorolac Tromethamine (Toradol Inj) 30 mg NOW STAT IV 04/03/17 10:58 04/03/17 11:00 DC 04/03/17 11:30 30 MG Diphenhydramine HCl (Benadryl Inj) 25 mg NOW STAT IV 04/03/17 10:58 04/03/17 11:00 DC 04/03/17 11:30 25 MG ECG Indication: chest pain, SOB/dyspnea Rate (beats per minute): 70 Rhythm: sinus rhythm (sinus arrythmia) Findings: RBBB, other (no acute injury) Comparison ECG Date: 01-Apr-2017 Change: no significant change ED Course 1026: Previous medical records were reviewed. The patient was evaluated in room B5. A complete history and physical examination was performed. 1030: Duoneb 3 ml INH. 1058: Diphenhydramine Inj 25 mg IV, Toradol Inj 30 mg IV. 0130: On reevaluation, the patient is resting comfortably. I discussed the results and findings with the patient. She verbalized agreement of the treatment plan. She was discharged home. Medical Decision the differential was considered includes acute myocardial infarction, acute coronary syndrome, myocarditis, pericarditis, pericardial effusions /tamponade, esophageal perforation, pulmonary embolism, pneumonia, pneumothorax, cardiomyopathy, congestive heart, anemia , COPD/asthma exacerbation. This is a 61-year-old female who presents to the ED with a chief complaint of trouble breathing. The patient states that her symptoms started last Friday. They seem to get worse 2 days ago and then again today. She feels that she is having a COPD exacerbation. She denies any fevers. No recent cough. Her vital signs are normal. Her physical exam reveals some upper airway rhonchi but otherwise she is in no distress. Her vital signs are stable. EKG shows a sinus rhythm at a rate of 70. Chest x-ray reveals some persistent pulmonary edema pattern previously seen and commented on. Clinically she does not have pulmonary edema. CBC and complete metabolic panel unremarkable. Glucose is 274. Troponin was negative and the patient was told the results of the test per cheese treated with DuoNeb treatment. She was given IV Toradol and IV Benadryl for some chronic pain. On reassessment, she is feeling better. She is felt to be stable for discharge and outpatient follow-up. Medication Reconcilliation Current Medication List: was personally reviewed by me Blood Pressure Screening Patient's blood pressure: Normal blood pressure Blood pressure disposition: Did not require urgent referral Impression Primary Impression: COPD exacerbation Scribe Attestation The scribe's documentation has been prepared under my direction and personally reviewed by me in its entirety. I confirm that the note above accurately reflects all work, treatment, procedures, and medical decision making performed by me. Departure Information Dispostion Home / Self-Care Referrals Manoj Goins D.O. (PCP) Patient Instructions My [facility] Additional Instructions Follow-up with your doctor for further care and evaluation in 1-2 days. Return to the emergency department for worsening or new symptoms or any concerns. You have been examined and treated today on an emergency basis only. This is not a substitute for, or an effort to provide, complete comprehensive medical care. It is impossible to recognize and treat all injuries or illnesses in a single emergency department visit. It is therefore important that you follow up closely with your doctor. Call as soon as possible for an appointment.
[2017-04-03 13:40] VITALS: BP 136/70
[2017-04-03 13:50] VITALS: PULSE 68; O2SAT 97
[2017-04-10] MEDS ORDERED: PRD20 PO (14:27)
[2017-04-10] MEDS ORDERED: PRT/40 PO (14:27)
[2017-04-10] MEDS ORDERED: NVLGIPEN SC (14:27)
[2017-04-10] MEDS ORDERED: INSDGIPEN SC (14:27)
[2017-04-10] MEDS ORDERED: DXY100 PO (14:27)
[2017-04-20] MEDS ORDERED: INSDGIPEN SC (15:50)
[2017-04-23] MEDS ORDERED: FURO-85 PO (14:29)
[2017-04-23] MEDS ORDERED: POTA10TA79 PO (14:30)
[2017-04-23] MEDS ORDERED: PRD20 PO (14:30)
[2017-04-23] MEDS ORDERED: DXY100 PO (14:30)
[2017-05-03] MEDS ORDERED: XPNINS1255 INH (16:30)
[2017-05-03] MEDS ORDERED: GUAI1TAB68 PO (16:30)
[2017-05-03] MEDS ORDERED: ATRINS INH (16:30)
[2017-05-03] MEDS ORDERED: PRD20 PO (16:54)
[2017-05-03] MEDS ORDERED: INSDGIPEN SC (16:54)
[2017-05-03] MEDS ORDERED: NVLGIPEN SC (16:54)
[2017-05-05] MEDS ORDERED: LEVO50TA PO (13:11)
== END 2017-04-03 13:51 | disposition home or self-care (01) ==
LOC: EDBD 10:14 → C.EDB 10:16
DX: J44.1 Chronic obstructive pulmonary disease with (acute) exacerbation (principal); J45.909 Unspecified asthma, uncomplicated; I48.91 Unspecified atrial fibrillation; F31.9 Bipolar disorder, unspecified; I27.81 Cor pulmonale (chronic); J96.10 Chronic respiratory failure, unspecified whether with hypoxia or hypercapnia; E11.9 Type 2 diabetes mellitus without complications; K21.9 Gastro-esophageal reflux disease without esophagitis; I11.9 Hypertensive heart disease without heart failure; E03.9 Hypothyroidism, unspecified; M19.90 Unspecified osteoarthritis, unspecified site; F32.9 Major depressive disorder, single episode, unspecified; K31.84 Gastroparesis; G47.33 Obstructive sleep apnea (adult) (pediatric); I45.10 Unspecified right bundle-branch block; F17.200 Nicotine dependence, unspecified, uncomplicated; Z86.718 Personal history of other venous thrombosis and embolism; Z83.3 Family history of diabetes mellitus; Z82.49 Family history of ischemic heart disease and other diseases of the circulatory system; Z79.4 Long term (current) use of insulin; Z79.01 Long term (current) use of anticoagulants; Z99.81 Dependence on supplemental oxygen; Z83.79 Family history of other diseases of the digestive system

== ENCOUNTER 2017-04-05 13:18 | Inpatient (IN) | payer OTHER ==
[~2017-04-05] VITALS: Ht 162.6 cm; Wt 83.9 kg
[2017-04-05] MEDS ORDERED: METHYLPREDNISOLONE 125 MG VIAL IV STA (13:39)
[2017-04-05] MEDS ORDERED: ALBUTEROL 0.083% NEBU SOLN 3 ML VIAL INH STA (13:39)
[2017-04-05] MEDS ORDERED: KETOROLAC TROMETHAMINE 30 MG/ML VIAL IV STA (13:39)
[2017-04-05 13:49] LABS: BASO % 0.2 %; BASO ABS # 0.02 K/uL (0-0.2); COMPLETE YES; EOS % 0.2 %; HEMATOCRIT 41.6 % (37-47); IG% 0.3 %; LYMPH % 13.5 %; LYMPH ABS # 1.21 K/uL (1.2-3.4); MEAN CELL VOLUME 94.5 fL (80-100); MEAN CORPUSCULAR HEMOGLOBIN 32.3 pg (25-34); MEAN CORPUSCULAR HGB CONC 34.1 g/dl (32-36); MEAN PLATELET VOLUME 10.5 fL (7.4-10.4); MONO % 5.5 %; NEUT % 80.3 %; PLATELET COUNT 281 K/uL (130-400); WHITE BLOOD COUNT 8.94 K/uL (4.8-10.8)
[2017-04-05 14:00] LABS: ARTERIAL BLD GAS O2 SATURATION 87.8 % (90-95); ARTERIAL BLOOD GAS BASE EXCESS 7.3 mEq/L (-9-1.8); ARTERIAL BLOOD GAS HCO3 34 mmol/L (19-24); ARTERIAL BLOOD GAS PO2 57 mm/Hg (80-95); ARTERIAL BLOOD GAS pH 7.41 (7.35-7.45)
[2017-04-05 14:02] LABS: ALLEN TEST POS (POS); O2 ADMINISTRATION 4L
[2017-04-05 14:07] LABS: INR 3.8 (0.9-1.1); PARTIAL THROMBOPLASTIN RATIO 1.9; PROTHROMBIN TIME (PATIENT) 42.5 SECONDS (9.0-12.0)
--- NOTE | 2017-04-05 14:23 | DIAGNOSTIC IMAGING REPORT ---
CHEST ONE VIEW PORTABLE CLINICAL HISTORY: Respiratory distress. Dyspnea. COMPARISON STUDY: Chest radiograph April 03, 2017. FINDINGS: The patient is rotated. There is no pneumothorax. Cardiomegaly is unchanged. Diffuse interstitial thickening persists. There is no consolidation to suggest superimposed pneumonia. The appearance of the chest is unchanged. IMPRESSION: 1. No change in mild interstitial thickening which suggests pulmonary edema. 2. Stable cardiomegaly. 3. Rotated study. Electronically signed by: Herman Chavez M.D. 04/05/2017 2:22 PM Dictated Date/Time: 04/05/2017 2:20 PM
[2017-04-05 14:25] LABS: ALB/GLOB RATIO 0.7 (0.9-2); ALT/SGPT 33 U/L (12-78); AST/SGOT 22 U/L (15-37); BLOOD UREA NITROGEN 20 mg/dl (7-18); BUN/CREATININE RATIO 14.4 (10-20); CALCIUM 10.2 mg/dl (8.5-10.1); CARBON DIOXIDE 33 mmol/L (21-32); CHLORIDE 91 mmol/L (98-107); GLUCOSE 549 mg/dl (70-99); POTASSIUM 4.5 mmol/L (3.5-5.1); SODIUM 130 mmol/L (136-145)
[2017-04-05] MEDS ORDERED: SODIUM CHLORIDE 0.9% 1000ML 1,000 ML IV STA (14:26)
[2017-04-05 14:28] LABS: ALKALINE PHOSPHATASE 92 U/L (45-117)
[2017-04-05] MEDS ORDERED: NovoLIN-R INSULIN PER UNIT CHARGE SC STA ×2 (14:28→14:33)
[2017-04-05] MEDS ORDERED: NovoLIN-R INSULIN PER UNIT CHARGE IV STA (14:31)
[2017-04-05] MEDS ORDERED: LEVAQUIN 750MG / 150ML D5W IV STA (14:35)
[2017-04-05 14:36] LABS: BETA-HYDROXYBUTYRATE 3.04 mg/dL (0.2-2.81)
[2017-04-05] MEDS ORDERED: ACETAMINOPHEN 325 MG TAB PO PRN (15:15)
[2017-04-05] MEDS ORDERED: DIPHENOXYLATE/ATROPINE 2.5/0.025MG TAB PO PRN (15:15)
[2017-04-05] MEDS ORDERED: NITROGLYCERIN 0.4 MG SL PER TAB CHARGE SL PRN (15:15)
[2017-04-05] MEDS ORDERED: LOPERAMIDE HCL 2 MG CAP PO PRN (15:15)
[2017-04-05] MEDS ORDERED: METHOCARBAMOL 500 MG TAB PO PRN (15:15)
[2017-04-05] MEDS ORDERED: ONDANSETRON INJ 2 MG/ML 2 ML VIAL IV PRN (15:15)
[2017-04-05] MEDS ORDERED: ALBUTEROL 0.083% NEBU SOLN 3 ML VIAL INH PRN (15:15)
[2017-04-05 15:25] VITALS: O2SAT 94; BMI 33.4
[2017-04-05] MEDS ORDERED: PHARMACY GLYCEMIC MGMT CONSULT PRN (15:46)
[2017-04-05] MEDS: METOCLOPRAMIDE HCL 5 MG TAB PO SCH ×2 (16:00→20:58)
[2017-04-05] MEDS ORDERED: INSULIN REGULAR 5 UNITS in SYRINGE 0 ML IV STA (17:00)
[2017-04-05 17:18] VITALS: BP 168/87; PULSE 99; TEMP 36.6; O2SAT 91
[2017-04-05 17:25] LABS: URINE APPEARANCE CLEAR (CLEAR); URINE BILIRUBIN NEG (NEG); URINE COLOR YELLOW; URINE NITRITE NEG (NEG); URINE PH 6.5 (4.5-7.5); URINE SPECIFIC GRAVITY 1.018 (1.000-1.030); UROBILINOGEN NEG (NEG)
[2017-04-05 17:27] LABS: MANUAL MICROSCOPIC REQUIRED? NO; REVIEW REQ? NO
[2017-04-05] MEDS ORDERED: hydrOXYzine HCL 25 MG TAB PO PRN (17:30)
[2017-04-05] MEDS ORDERED: FUROSEMIDE INJ 40 MG in SYRINGE 0 ML IV ONE (17:45)
[2017-04-05] MEDS ORDERED: INSULIN ASPART 100 UNITS/ML 3 ML PEN SC SCH ×3 (18:00→21:00)
[2017-04-05] MEDS: FENTANYL PATCH REMOVE & WASTE SCH (18:18)
[2017-04-05] MEDS: OXYCODONE HCL IR 5 MG TAB (IMMEDIATE RELEASE) PO PRN (18:19)
[2017-04-05] MEDS: FENTANYL 50 MCG/HR TDSY TD SCH (18:19)
--- NOTE | 2017-04-05 18:25 | Pharmacy Progress Note ---
Glycemic Control Intl Consult Date of Service Apr 05, 2017. Scope Glycemic Pharmacist consulted by Dr Sierra on 04/05/17 for glycemic control and to write orders per [facility] inpatient glycemic control protocol Objective Weight (Kilograms): 88.200 Accuchecks BSG (last 24hrs): Test 04/05/17 13:30 04/05/17 17:40 Random Glucose 549 mg/dl (70-99) Bedside Glucose 317 mg/dl (70-90) Laboratory Data (last 24hrs) Test 04/05/17 13:30 Anion Gap 6.0 mmol/L BUN/Creatinine Ratio 14.4 Blood Urea Nitrogen 20 mg/dl Creatinine 1.40 mg/dl Potassium Level 4.5 mmol/L Sodium Level 130 mmol/L White Blood Count 8.94 K/uL Red Blood Count 4.40 M/uL Hemoglobin 14.2 g/dL Hematocrit 41.6 % Mean Corpuscular Volume 94.5 fL Mean Corpuscular Hemoglobin 32.3 pg Mean Corpuscular Hemoglobin Concent 34.1 g/dl Platelet Count 281 K/uL Mean Platelet Volume 10.5 fL Neutrophils (%) (Auto) 80.3 % Lymphocytes (%) (Auto) 13.5 % Monocytes (%) (Auto) 5.5 % Eosinophils (%) (Auto) 0.2 % Basophils (%) (Auto) 0.2 % Neutrophils # (Auto) 7.17 K/uL Lymphocytes # (Auto) 1.21 K/uL Monocytes # (Auto) 0.49 K/uL Eosinophils # (Auto) 0.02 K/uL Basophils # (Auto) 0.02 K/uL Recent Pertinent Medications Outpatient Anti-diabetic Regimen: * Lantus 40 units SC BID * A1c = pending for 04/06/17 Risk Factors for Insulin Resistance: * Steroids: Methylprednisolone 40 mg IV x1 then 20 mg IV q8h * Infection: COPD exacerbation, on levofloxacin * Diet: T2DM/AHA Risk Factors for Insulin *sensitivitiy*: * Acute renal dysfunction Assessment & Plan ASSESSMENT: * ADA & AACE recommend a goal blood sugar range 140-180 mg/dl for the majority of critically ill & non-critically ill patients. However, more stringent targets may be selected in individual cases. * 61 yo F known to our service admitted w COPD exacerbation. Was started on prednisone yesterday which is likely contributing to significant hyperglycemia in the 500's * Not DKA - anion gap normal, pH 7.41, CO2 elevated * Not HHS - calculated osmolality < 320 mOsm/kg * Home regimen with only basal insulin - will adjust as inpatient to target no more than 50% of total daily insulin as basal insulin (while on steroids) * BSG significantly elevated to 549 mg/dL in ED - treated with IV and SQ insulin. Recheck ~ 2.5 hours later still elevated at 370 mg/dL (per RN) * Will give additional IV insulin x1 now prior to dinner, then cover CHO only at dinner with slightly tighter CHO ratio x1 (no additional sliding scale) * Will give one-time lower dose of Lantus this PM, based on BSG as RN reported that patient took AM dose of Lantus VAMP LINER * Will add overnight BSG check PLAN FOR INPATIENT GLYCEMIC CONTROL: * Additional regular insulin IV 5 units x1 now * Basal insulin with LANTUS 0-20 units SQ based on BSG x1 tonight * Basal insulin with LANTUS 20 units SQ BID thereafter (10 units for BSG < 110 mg/dL) * Correctional Insulin with NOVOLOG per scale ACHS or Q6hrs while NPO - additional check at 0200 * Goal Range: Low 110 mg/dL - High 140 mg/dL * Correction Factor: 25 mg/dL/unit * Nutritional / Prandial insulin per carb ratio of 1 unit per 7 grams CHO consumed * Please note that the plan above was derived based on current level of insulin resistance and hospital stress. These recommendations are appropriate for inpatient admission only. Plan of care upon discharge will need to be reassessed to avoid potential outpatient hypo/hyperglycemia. Thank you.
--- NOTE | 2017-04-05 18:46 | EMERGENCY ROOM VISIT NOTE ---
History Report prepared by [place]: Jenae Briceño Under the Supervision of: Dr. Fabricio Sesay D.O. First contact with patient: 13:28 Stated Complaint: BREATHING DIFFICULTY History of Present Illness The patient is a 61 year old female who presents to the Emergency Room with complaints of constant shortness of breath for the past two weeks. She is chronically on 3-4L of O2, but she states that she is still feeling very short of breath. This morning she became very short of breath when going from her wheelchair to the toilet. The patient also reports chest pain and states, "it feels like someone is sitting on my chest." Her pain is worse with movement especially with twisting, turning, and bending. It is also worse with palpation and movement of her arms. It does not change with breathing. She states that this is the same pain that she has had for the past week. The patient has been seen in the ED three other times this week for her shortness of breath and chest pain. She saw her PCP yesterday who started her on Levaquin and prednisone. She is taking her Coumadin as prescribed. The patient denies nausea , vomiting, diarrhea. She rates her current pain as a 9/10 in severity. Source of History: patient Onset: 2 weeks ago Position: chest (respiratory) Symptom Intensity: 9/10 Quality: other (shortness of breath) Timing: constant Modifying Factors (Worsening): exertion, movement Associated Symptoms: + chest pain, No nausea, No vomiting, No diarrhea Review of Systems See HPI for pertinent positives & negatives. A total of 10 systems reviewed and were otherwise negative. Past Medical & Surgical Medical Problems: (1) Acute electrocardiogram changes (2) Asthma (3) Atrial fibrillation (4) Bipolar disorder (5) C. 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 (23) DARIUS on CPAP (24) Osteoarthritis (25) PAF (paroxysmal atrial fibrillation) Surgical Problems: (1) H/O: hysterectomy (2) Hx of appendectomy (3) Hx of cholecystectomy (4) Hx of lumpectomy (5) Hx of mitral valve repair (6) Hx of tubal ligation (7) Hx of umbilical hernia repair Family History Diabetes mellitus MOTHER FH: Crohn's disease SISTER Hypertension MOTHER Social History Smoking Status: Current Every Day Smoker Alcohol Use: none Drug Use: none Marital Status: Housing Status: lives with significant other Occupation Status: disabled Current/Historical Medications Scheduled Amitriptyline HCl (Amitriptyline HCl), 50 MG PO HS Amlodipine Besylate (Amlodipine Besylate), 10 MG PO QAM Atorvastatin (Atorvastatin Calcium), 40 MG PO HS Azithromycin (Zithromax), 250 MG PO DAILY Calcitriol (Calcitriol), 0.5 MCG PO QAM Cetirizine (Zyrtec), 10 MG PO QAM Cholecalciferol (Vitamin D), 1,000 INTER.UNIT PO DAILY Colestipol HCl (Colestid), 1 GM PO BID Fentanyl (Duragesic), 50 MCG TOP [id number] Fluticasone Prop/Salmeterol (Advair Diskus 250/50 60 Dose), 1 PUFF INH BID Furosemide (Furosemide), 40 MG PO BID Gabapentin (Gabapentin), 800 MG PO TID Home O2 Therapy (Oxygen), 3 LITERS NA CONTINOUS Insulin Glargine (Lantus Solostar), 40 UNITS SC BID Levothyroxine Sodium (Synthroid), 50 MCG PO QAM Metoclopramide Hcl (Metoclopramide Hcl), 5 MG PO ACHS Metolazone (Zaroxolyn), 2.5 MG PO DAILY Metoprolol Tartrate (Lopressor) (Lopressor), 75 MG PO BID Multiple Vitamin (Multivitamin), 1 TAB PO QAM Mupirocin (Bactroban), 1 APPLN TOP BID Olanzapine (Olanzapine), 2.5 MG PO HS Pantoprazole (Pantoprazole Sodium), 40 MG PO HS Potassium Chloride Microencaps (Potassium Chloride Cr), 20 MEQ PO BID Ranitidine Hcl (Zantac), 300 MG PO HS Tiotropium [place] (Spiriva Handihaler), 1 CAP INH DAILY Trazodone HCl (Trazodone HCl), 300 MG PO HS Venlafaxine Hcl (Effexor Extended Rel), 225 MG PO QAM Warfarin Sodium (Warfarin Sodium), 5 MG PO 2XWK Warfarin Sodium (Warfarin Sodium), 7.5 MG PO [id number] Scheduled PRN Albuterol Sulf (Proventil 0.083% 2.5MG/3ML), 2.5 MG INH Q6H PRN for Wheezing Diphenoxylate/Atropine (Lomotil 2.5-0.025 mg), 1 TAB PO UD PRN for Diarrhea Epinephrine (Epipen), 0.3 MG IM UD PRN for ALLERGIC REACTION Hydroxyzine Pamoate (Vistaril), 25 MG PO Q6H PRN for Itching Loperamide Hcl (Imodium), 2 MG PO BID PRN for Loose Stool(s) Lorazepam (Lorazepam), 0.5 MG PO HS PRN for Anxiety Methocarbamol (Methocarbamol), 500 MG PO TID PRN for Muscle Relaxer Ondansetron (Ondansetron HCl), 8 MG PO BID PRN for Nausea Oxycodone HCl (Oxycodone HCl), 10 MG PO Q6H PRN for Pain Allergies Coded Allergies: BEE STING (Verified Allergy, Severe, SWELLING, 04/05/17) Lisinopril (Verified Allergy, Intermediate, FACE SWELLING, 04/05/17) Metronidazole (Verified Allergy, Mild, FACE SWELLING, 04/05/17) Hubert (Verified Allergy, Mild, HIVES, 04/05/17) Alprazolam (Verified Allergy, Unknown, RED FACE, FACE SWELLING, 04/05/17) Lactose (Verified Adverse Reaction, Intermediate, VOMTING DIARRHEA ABDOMINAL PAIN, 04/05/17) Prednisone (Verified Adverse Reaction, Mild, unknown, 04/05/17) Colesevelam (Verified Adverse Reaction, Unknown, unknown, 04/05/17) Coggon (Verified Adverse Reaction, Unknown, jitters, 04/05/17) Uncoded Allergies: BBQ CHIPS (Allergy, Unknown, FACE SWELLING, 12/22/15) Physical Exam Vital Signs Date Time Temp Pulse Resp B/P (MAP) Pulse Ox O2 Delivery O2 Flow Rate FiO2 04/05/17 15:13 85 18 93 04/05/17 15:08 89 29 93 04/05/17 15:03 95 18 94 04/05/17 15:02 152/70 04/05/17 14:58 97 22 93 04/05/17 14:53 99 24 94 04/05/17 14:51 95 22 130/62 94 Nasal Cannula 4.0 04/05/17 14:48 98 20 94 04/05/17 14:43 98 22 94 04/05/17 14:38 86 21 92 04/05/17 14:37 130/62 04/05/17 14:33 103 21 93 04/05/17 14:28 98 20 95 04/05/17 14:23 101 19 95 04/05/17 14:18 104 18 95 04/05/17 14:13 99 20 98 04/05/17 14:08 87 21 97 04/05/17 14:03 102 21 98 04/05/17 13:58 98 17 90 04/05/17 13:53 99 19 91 04/05/17 13:48 91 19 92 04/05/17 13:43 94 22 91 04/05/17 13:43 90 Nasal Cannula 4.0 04/05/17 13:38 95 24 88 04/05/17 13:33 93 18 91 04/05/17 13:32 95 04/05/17 13:28 86 20 89 04/05/17 13:25 96 Room Air 04/05/17 13:25 146/64 04/05/17 13:25 90 Nasal Cannula 4.0 04/05/17 13:25 36.6 95 20 146/64 90 Nasal Cannula 4.0 Physical Exam GENERAL: alert, disheveled, chronically ill appearing, sitting up in bed, well nourished, no distress, non-toxic EYE EXAM: normal conjunctiva OROPHARYNX: no exudate, no erythema, lips, buccal mucosa, and tongue normal and mucous membranes are moist NECK: supple, no nuchal rigidity, no adenopathy, non-tender LUNGS: Diffuse wheezing bilaterally. Normal chest wall mechanics HEART: Tachycardic, no murmurs, S1 normal and S2 normal CHEST: Acute reproducible anterior chest wall pain. ABDOMEN: abdomen soft, non-tender, normo-active bowel sounds, no masses, no rebound or guarding. BACK: Back is symmetrical on inspection and there is no deformity, no midline tenderness, no CVA tenderness. SKIN: no rashes and no bruising UPPER EXTREMITIES: upper extremities are grossly normal. LOWER EXTREMITIES: No pitting edema. Calves equal bilaterally. NEURO EXAM: Normal sensorium, cranial nerves II-XII grossly intact, normal speech, no gross weakness of arms, no gross weakness of legs. Medical Decision & Procedures ER Provider Diagnostic Interpretation: Radiology results as stated below per my review and the radiologist's interpretation: CHEST ONE VIEW PORTABLE CLINICAL HISTORY: Respiratory distress. Dyspnea. COMPARISON STUDY: Chest radiograph April 03, 2017. FINDINGS: The patient is rotated. There is no pneumothorax. Cardiomegaly is unchanged. Diffuse interstitial thickening persists. There is no consolidation to suggest superimposed pneumonia. The appearance of the chest is unchanged. IMPRESSION: 1. No change in mild interstitial thickening which suggests pulmonary edema. 2. Stable cardiomegaly. 3. Rotated study. Electronically signed by: Herman Chavez M.D. 04/05/2017 2:22 PM Dictated Date/Time: 04/05/2017 2:20 PM Laboratory Results 04/05/17 13:30 Red Blood Count 4.40, Mean Corpuscular Volume 94.5, Mean Corpuscular Hemoglobin 32.3, Mean Corpuscular Hemoglobin Concent 34.1, Mean Platelet Volume 10.5, Neutrophils (%) (Auto) 80.3, Lymphocytes (%) (Auto) 13.5, Monocytes (%) (Auto) 5.5, Eosinophils (%) (Auto) 0.2, Basophils (%) (Auto) 0.2, Neutrophils # (Auto) 7.17, Lymphocytes # (Auto) 1.21, Monocytes # (Auto) 0.49, Eosinophils # (Auto) 0.02, Basophils # (Auto) 0.02 04/05/17 13:30 Test 04/05/17 13:30 04/05/17 13:50 White Blood Count 8.94 K/uL (4.8-10.8) Red Blood Count 4.40 M/uL (4.2-5.4) Hemoglobin 14.2 g/dL (12.0-16.0) Hematocrit 41.6 % (37-47) Mean Corpuscular Volume 94.5 fL (80-100) Mean Corpuscular Hemoglobin 32.3 pg (25-34) Mean Corpuscular Hemoglobin Concent 34.1 g/dl (32-36) Platelet Count 281 K/uL (130-400) Mean Platelet Volume 10.5 fL (7.4-10.4) Neutrophils (%) (Auto) 80.3 % Lymphocytes (%) (Auto) 13.5 % Monocytes (%) (Auto) 5.5 % Eosinophils (%) (Auto) 0.2 % Basophils (%) (Auto) 0.2 % Neutrophils # (Auto) 7.17 K/uL (1.4-6.5) Lymphocytes # (Auto) 1.21 K/uL (1.2-3.4) Monocytes # (Auto) 0.49 K/uL (0.11-0.59) Eosinophils # (Auto) 0.02 K/uL (0-0.5) Basophils # (Auto) 0.02 K/uL (0-0.2) RDW Standard Deviation 43.3 fL (36.4-46.3) RDW Coefficient of Variation 12.5 % (11.5-14.5) Immature Granulocyte % (Auto) 0.3 % Immature Granulocyte # (Auto) 0.03 K/uL (0.00-0.02) Prothrombin Time 42.5 SECONDS (9.0-12.0) Prothromb Time International Ratio 3.8 (0.9-1.1) Activated Partial Thromboplast Time 49.5 SECONDS (21.0-31.0) Partial Thromboplastin Ratio 1.9 Anion Gap 6.0 mmol/L (3-11) Est Creatinine Clear Calc Drug Dose 46.0 ml/min Estimated GFR () 47.2 Estimated GFR (Non- 40.7 BUN/Creatinine Ratio 14.4 (10-20) Calcium Level 10.2 mg/dl (8.5-10.1) Total Bilirubin 0.3 mg/dl (0.2-1) Aspartate Amino Transf (AST/SGOT) 22 U/L (15-37) Alanine Aminotransferase (ALT/SGPT) 33 U/L (12-78) Alkaline Phosphatase 92 U/L (45-117) Pro-B-Type Natriuretic Peptide 1201 pg/ml (0-900) Total Protein 8.1 gm/dl (6.4-8.2) Albumin 3.2 gm/dl (3.4-5.0) Globulin 4.9 gm/dl (2.5-4.0) Albumin/Globulin Ratio 0.7 (0.9-2) Beta-Hydroxybutyric Acid 3.04 mg/dL (0.2-2.81) Arterial Blood pH 7.41 (7.35-7.45) Arterial Blood Partial Pressure CO2 54 mmHg (35-46) Arterial Blood Partial Pressure O2 57 mm/Hg (80-95) Arterial Blood HCO3 34 mmol/L (19-24) Arterial Blood Oxygen Saturation 87.8 % (90-95) Arterial Blood Base Excess 7.3 mEq/L (-9-1.8) Arterial Blood Gas Delivery 4L Alexandr Test POS (POS) Laboratory results per my review. Medications Administered Medications (Trade) Dose Ordered Sig/Artemio Route Start Time Stop Time Status Last Admin Dose Admin Ketorolac Tromethamine (Toradol Inj) 30 mg NOW STAT IV 04/05/17 13:39 04/05/17 13:43 DC 04/05/17 13:52 30 MG Albuterol Sulfate (Ventolin 0.083% 2.5MG/3ML Neb) 5 mg NOW STAT INH 04/05/17 13:39 04/05/17 13:43 DC 04/05/17 13:50 5 MG Methylprednisolone Sodium Succinate (Solu-Medrol IV) 40 mg NOW STAT IV 04/05/17 13:39 04/05/17 13:43 DC 04/05/17 13:54 40 MG Sodium Chloride 1,000 ml @ 999 mls/hr Q1H1M STAT IV 04/05/17 14:26 04/05/17 15:31 DC 04/05/17 14:34 999 MLS/HR Insulin Human Regular (novoLIN-R U-100 PER UNIT) 4 units NOW STAT IV 04/05/17 14:31 04/05/17 14:33 DC 04/05/17 14:47 4 UNITS Insulin Human Regular (novoLIN-R U-100 PER UNIT) 7 units NOW STAT SC 04/05/17 14:33 04/05/17 14:35 DC 04/05/17 14:49 7 UNITS Levofloxacin (Levaquin / D5W) 750 mg NOW STAT IV 04/05/17 14:35 04/05/17 14:37 DC 04/05/17 14:43 750 MG ECG Indication: SOB/dyspnea Rate (beats per minute): 88 Rhythm: sinus rhythm Findings: PAC, RBBB, other (right axis) Comparison ECG Date: 04/03/2017 Change: no significant change ED Course ED COURSE: Vital signs were reviewed and showed hypoxia and hypertension The patients medical record was reviewed The above diagnostic studies were performed and reviewed. ED treatments and interventions as stated above. 1328: The patient was evaluated in room B11B. A complete history and physical examination was performed. 1352: Lab hadley an ABG instead of a VBG. 1429: Upon reevaluation, the patient is resting more comfortably. I discussed my findings with the patient and she understands and agrees with the treatment plan. Based on the patients age, coexisting illnesses, exam and lab findings the decision to treat as an inpatient was made. The patient remained stable while under my care. The patient will be evaluated for further management. 1446: I spoke with Dr. Sierra at this time. We discussed the patient's case. The patient will be evaluated by the [facility] for further management. Medical Decision Differential diagnoses includes but is not limited to pneumonia, bronchitis, COPD/Asthma exacerbation, pneumothorax, pulmonary embolism, congestive heart failure, acute coronary syndrome. Patient is a 61-year-old female who presents the ER for chest pain which has been present for the past one week shortness breath for the past 2 weeks. Chest pain is clearly reproducible and muscle skeletal on exam as it is worsening with twisting turning bending and on palpation. Shortness of breath appears to be consistent with her COPD. INR is slightly subtherapeutic at 1.9. BMP shows an elevated glucose at 550. She is given 7 units subcutaneous and 4 units IV. Troponin was negative. The BNP was slightly elevated at 1200. Chest x-ray was unchanged. With her wheezing she was given neb treatments without improvement of her symptoms. She is given steroids as well. Patient was admitted to internal medicine for COPD exacerbation which was worsening while on Levaquin and steroids. Medication Reconcilliation Current Medication List: was personally reviewed by me Blood Pressure Screening Patient's blood pressure: Elevated blood pressure Blood pressure disposition: Referred to PCP Consults Time Called: [id number] Consulting Physician: Dr. Sierra Returned Call: [address] Sierra at this time. We discussed the patient's case. The patient will be evaluated by the [facility] for further management. Impression Primary Impression: COPD exacerbation Scribe Attestation The scribe's documentation has been prepared under my direction and personally reviewed by me in its entirety. I confirm that the note above accurately reflects all work, treatment, procedures, and medical decision making performed by me. Departure Information Dispostion Being Evaluated By Hospitalist Referrals Manoj Goins D.O. (PCP)
[2017-04-05 18:54] VITALS: BP 151/84; PULSE 91; TEMP 36.9; O2SAT 91
[2017-04-05] MEDS: FLUTICASONE/SALMETEROL 250/50 (ADVAIR) 14 PUFF/1 INHALER INH SCH (20:57)
[2017-04-05] MEDS: AMITRIPTYLINE HCL 50 MG TAB PO SCH (20:57)
[2017-04-05] MEDS: TRAZODONE HCL 100 MG TAB PO SCH (20:57)
[2017-04-05] MEDS: ATORVASTATIN 40 MG TAB PO SCH (20:57)
[2017-04-05] MEDS: POTASSIUM CHLORIDE 20 MEQ TABCR PO SCH (20:57)
[2017-04-05] MEDS: COLESTIPOL HCL 1 GM TAB PO SCH (20:58)
[2017-04-05] MEDS: METHYLPREDNISOLONE IV 20 MG in SYRINGE 0 ML IV SCH (20:58)
[2017-04-05] MEDS: GABAPENTIN 800 MG TAB PO SCH (20:58)
[2017-04-05] MEDS: PANTOprazole SOD 40 MG TAB PO SCH (20:58)
[2017-04-05] MEDS: OLANZAPINE 2.5 MG TAB PO SCH (20:58)
[2017-04-05] MEDS: METOPROLOL TARTRATE 50 MG TAB PO SCH (20:58)
[2017-04-05] MEDS: RANITIDINE HCL 150 MG TAB PO SCH (20:58)
[2017-04-05] MEDS ORDERED: INSULIN GLARGINE SOLOSTAR 100 UNITS/ML 3 ML PEN SC SCH ×2 (21:00)
[2017-04-05] MEDS: MUPIROCIN 2% OINT 22 GM TUBE TOP SCH (21:00)
[2017-04-05] MEDS ORDERED: HEPARIN SOD 5000 UNIT/0.5 ML CARP SQ SCH (22:00)
[2017-04-06] VITALS (14 sets, daily range): BP systolic 90–140; BP diastolic 60–81; PULSE 58–85; TEMP 36–36.9; O2SAT 90–98
[2017-04-06] MEDS: CHECK FENTANYL PATCH PLACEMENT SCH ×3 (00:09→14:51)
[2017-04-06] MEDS ORDERED: INSULIN ASPART 100 UNITS/ML 3 ML PEN SC SCH (02:00)
[2017-04-06] MEDS ORDERED: ALBUT/IPRATROP 3MG/0.5MG NEB 3 ML VIAL INH STA (04:13)
[2017-04-06] MEDS ORDERED: ALBUT/IPRATROP 3MG/0.5MG NEB 3 ML VIAL INH PRN (04:15)
[2017-04-06] MEDS: METHYLPREDNISOLONE IV 20 MG in SYRINGE 0 ML IV SCH (04:30)
[2017-04-06] MEDS: LEVOTHYROXINE 50 MCG TAB PO SCH (04:31)
[2017-04-06 04:58] LABS: HEMATOCRIT 38.8 % (37-47); MEAN CELL VOLUME 93.9 fL (80-100); MEAN CORPUSCULAR HEMOGLOBIN 30.3 pg (25-34); MEAN CORPUSCULAR HGB CONC 32.2 g/dl (32-36); MEAN PLATELET VOLUME 10.2 fL (7.4-10.4); PLATELET COUNT 296 K/uL (130-400); RED BLOOD COUNT 4.13 M/uL (4.2-5.4); WHITE BLOOD COUNT 9.23 K/uL (4.8-10.8)
[2017-04-06 05:11] LABS: INR 4.4 (0.9-1.1); PROTHROMBIN TIME (PATIENT) 50.2 SECONDS (9.0-12.0)
[2017-04-06] MEDS ORDERED: INSULIN ASPART 100 UNITS/ML 3 ML PEN SC ONE (05:12)
[2017-04-06] MEDS ORDERED: INSULIN GLARGINE SOLOSTAR 100 UNITS/ML 3 ML PEN SC ONE (05:15)
[2017-04-06 05:16] LABS: BLOOD UREA NITROGEN 21 mg/dl (7-18); BUN/CREATININE RATIO 18.6 (10-20); CALCIUM 9.7 mg/dl (8.5-10.1); CARBON DIOXIDE 36 mmol/L (21-32); CHLORIDE 100 mmol/L (98-107); GLUCOSE 291 mg/dl (70-99); POTASSIUM 4.8 mmol/L (3.5-5.1); SODIUM 139 mmol/L (136-145)
[2017-04-06] MEDS ORDERED: INSULIN GLARGINE SOLOSTAR 100 UNITS/ML 3 ML PEN SC STA (05:44)
[2017-04-06] MEDS: ALBUT/IPRATROP 3MG/0.5MG NEB 3 ML VIAL INH SCH ×4 (06:57→19:14)
[2017-04-06] MEDS: MUPIROCIN 2% OINT 22 GM TUBE TOP SCH ×2 (07:22→21:00)
[2017-04-06] MEDS: OXYCODONE HCL IR 5 MG TAB (IMMEDIATE RELEASE) PO PRN ×3 (08:03→22:08)
[2017-04-06] MEDS: FUROSEMIDE INJ 40 MG in SYRINGE 0 ML IV SCH ×2 (08:04→22:08)
[2017-04-06] MEDS: FLUTICASONE/SALMETEROL 250/50 (ADVAIR) 14 PUFF/1 INHALER INH SCH ×2 (08:04→22:08)
[2017-04-06] MEDS: NICOTINE 14 MG/24 HR TDSY TD SCH (08:07)
[2017-04-06] MEDS: CHOLECALCIFEROL 1000 INTER.UNIT TAB PO SCH (08:10)
[2017-04-06] MEDS: TIOTROPIUM BROMIDE 5 PUFF/90 MCG INH INH SCH (08:10)
[2017-04-06] MEDS: METOPROLOL TARTRATE 50 MG TAB PO SCH ×2 (08:11→22:09)
[2017-04-06] MEDS: METOLAZONE 2.5 MG TAB PO SCH (08:11)
[2017-04-06] MEDS: POTASSIUM CHLORIDE 20 MEQ TABCR PO SCH ×2 (08:12→22:09)
[2017-04-06] MEDS: CETIRIZINE HCL 10 MG TAB PO SCH (08:13)
[2017-04-06] MEDS: MULTIVITAMIN TAB PO SCH (08:13)
[2017-04-06] MEDS: GABAPENTIN 800 MG TAB PO SCH ×3 (08:13→22:09)
[2017-04-06] MEDS: METOCLOPRAMIDE HCL 5 MG TAB PO SCH ×4 (08:14→22:09)
[2017-04-06] MEDS: AMLODIPINE BESYLATE 5 MG TAB PO SCH (08:14)
[2017-04-06] MEDS: VENLAFAXINE HCL XR 75 MG CAPXR PO SCH (08:15)
[2017-04-06] MEDS: COLESTIPOL HCL 1 GM TAB PO SCH ×2 (08:16→22:00)
[2017-04-06] MEDS ORDERED: FUROSEMIDE INJ 40 MG in SYRINGE 0 ML IV SCH (09:00)
--- NOTE | 2017-04-06 10:37 | Progress Note ---
Internal Med Progress Note Date of Service: Apr 06, 2017. Provider Documentation: SUBJECTIVE: Patient feeling a little better than yesterday. SOB has improved. Cough present but not much and no sputum production No chest pain, nausea, vomiting, fever, chills, nasal congestion, orthopnea, leg swelling. On 4 L oxygen- 98% Weight down by 3.5 Lbs and negative output 2 L OBJECTIVE: Vital Signs-as noted below Exam: General-AAOX3, no distress Neck-Supple, no JVD Lungs-AEBE decreased, mild wheezing heard, few rales Heart-S1, S2 normal Abdomen-Soft, non tender, non distended, BS present Extremities-No edema Lab data as noted below. ASSESSMENT & PLAN: ACUTE ON CHRONIC SOB In setting of CHRONIC HYPOXIC RESPIRATORY FAILURE, COPD, PULMONARY HYPERTENSION: Likely multifactorial: COPD exacerbation, CHF exacerbation -On 4 L oxygen--> titrate it down to maintain sao2 88-92% (at home - 3 L) -Nebs, Levofloxacin, IV solu medrol--> PO prednisone -CXR- no pneumonia CHF EXACERBATION, DIASTOLIC -CXR- pulmonary congestion, mild, Pro BNP 1200 -IV Lasix 40 mg BID (Home dose is 40 mg PO BID) -I/Os and daily weight -Work up- EKG- PACs +, sinus rhythm, Trop x 1 negative., Echo 2016- reviewed- EF > 70% CHRONIC PAIN SYNDROME -On Fentanyl patch 50 mcg q 72 hours. -Cautious about pain medications- narcotics. -Will avoid IV narcotics. PO oxycodone prn for severe pain only HX OF ATRIAL FIBRILLATION -NSR -On Metoprolol 75 mg PO BID, Coumadin -INR supra therapeutic. Hold coumadin. DEPRESSION/BIPOLAR DISORDER -Stable -Continue with home medications DM-2 -ISS, Accuchecks -Monitor while on steroids HTN- Stable -Continue with home medications HYPOTHYROIDISM -On levothyroxine, TSH normal DARIUS on CPAP GERD On protonix DVT PROPHYLAXIS INR supra therapeutic, Coumadin FULL CODE DISPOSITION Expected discharge home when stable Vital Signs: Date Time Temp Pulse Resp B/P (MAP) Pulse Ox O2 Delivery O2 Flow Rate FiO2 04/06/17 08:19 36.7 66 18 132/73 (92) 98 Nasal Cannula 4.0 04/06/17 08:00 Nasal Cannula 4.0 04/06/17 06:57 71 18 98 Nasal Cannula 4.0 04/06/17 04:23 68 18 97 Nasal Cannula 4.0 04/06/17 04:00 Nasal Cannula 4.0 04/06/17 03:47 36.9 64 18 127/77 (94) 97 Nasal Cannula 4.0 04/06/17 00:55 66 18 96 Nasal Cannula 4.0 04/06/17 00:09 36.9 59 20 140/80 (100) 95 Nasal Cannula 4.0 04/06/17 00:02 Nasal Cannula 4.0 04/05/17 20:00 Nasal Cannula 4.0 04/05/17 18:54 36.9 91 18 151/84 (106) 91 Nasal Cannula 4.0 04/05/17 17:18 36.6 99 20 168/87 (114) 91 Nasal Cannula 4.0 04/05/17 16:30 36.6 89 18 146/86 94 04/05/17 16:18 89 18 94 04/05/17 16:13 89 23 93 04/05/17 16:08 89 20 94 04/05/17 16:03 90 16 94 04/05/17 16:01 146/86 04/05/17 15:58 91 20 96 04/05/17 15:53 90 18 95 04/05/17 15:48 94 22 94 04/05/17 15:43 90 18 94 04/05/17 15:38 94 19 95 04/05/17 15:33 96 18 95 04/05/17 15:28 84 18 95 04/05/17 15:25 94 Nasal Cannula 4.0 04/05/17 15:23 73 25 97 04/05/17 15:21 84 04/05/17 15:18 87 18 95 04/05/17 15:13 85 18 93 04/05/17 15:08 89 29 93 04/05/17 15:03 95 18 94 04/05/17 15:02 152/70 04/05/17 14:58 97 22 93 04/05/17 14:53 99 24 94 04/05/17 14:51 95 22 130/62 94 Nasal Cannula 4.0 04/05/17 14:48 98 20 94 04/05/17 14:43 98 22 94 04/05/17 14:38 86 21 92 04/05/17 14:37 130/62 04/05/17 14:33 103 21 93 04/05/17 14:28 98 20 95 04/05/17 14:23 101 19 95 04/05/17 14:18 104 18 95 04/05/17 14:13 99 20 98 04/05/17 14:08 87 21 97 04/05/17 14:03 102 21 98 04/05/17 13:58 98 17 90 04/05/17 13:53 99 19 91 04/05/17 13:48 91 19 92 04/05/17 13:43 94 22 91 04/05/17 13:43 90 Nasal Cannula 4.0 04/05/17 13:38 95 24 88 04/05/17 13:33 93 18 91 04/05/17 13:32 95 04/05/17 13:28 86 20 89 04/05/17 13:25 96 Room Air 04/05/17 13:25 146/64 04/05/17 13:25 90 Nasal Cannula 4.0 04/05/17 13:25 36.6 95 20 146/64 90 Nasal Cannula 4.0 Lab Results: Results Past 24 Hours Test 04/05/17 13:30 04/05/17 13:50 04/05/17 17:09 04/05/17 17:14 Range/Units White Blood Count 8.94 4.8-10.8 K/uL Red Blood Count 4.40 4.2-5.4 M/uL Hemoglobin 14.2 12.0-16.0 g/dL Hematocrit 41.6 37-47 % Mean Corpuscular Volume 94.5 80-100 fL Mean Corpuscular Hemoglobin 32.3 25-34 pg Mean Corpuscular Hemoglobin Concent 34.1 32-36 g/dl Platelet Count 281 130-400 K/uL Mean Platelet Volume 10.5 7.4-10.4 fL Neutrophils (%) (Auto) 80.3 % Lymphocytes (%) (Auto) 13.5 % Monocytes (%) (Auto) 5.5 % Eosinophils (%) (Auto) 0.2 % Basophils (%) (Auto) 0.2 % Neutrophils # (Auto) 7.17 1.4-6.5 K/uL Lymphocytes # (Auto) 1.21 1.2-3.4 K/uL Monocytes # (Auto) 0.49 0.11-0.59 K/uL Eosinophils # (Auto) 0.02 0-0.5 K/uL Basophils # (Auto) 0.02 0-0.2 K/uL RDW Standard Deviation 43.3 36.4-46.3 fL RDW Coefficient of Variation 12.5 11.5-14.5 % Immature Granulocyte % (Auto) 0.3 % Immature Granulocyte # (Auto) 0.03 0.00-0.02 K/uL Prothrombin Time 42.5 9.0-12.0 SECONDS Prothromb Time International Ratio 3.8 0.9-1.1 Activated Partial Thromboplast Time 49.5 21.0-31.0 SECONDS Partial Thromboplastin Ratio 1.9 Sodium Level 130 136-145 mmol/L Potassium Level 4.5 3.5-5.1 mmol/L Chloride Level 91 98-107 mmol/L Carbon Dioxide Level 33 21-32 mmol/L Anion Gap 6.0 3-11 mmol/L Blood Urea Nitrogen 20 7-18 mg/dl Creatinine 1.40 0.60-1.20 mg/dl Est Creatinine Clear Calc Drug Dose 46.0 ml/min Estimated GFR () 47.2 Estimated GFR (Non- 40.7 BUN/Creatinine Ratio 14.4 10-20 Random Glucose 549 70-99 mg/dl Calcium Level 10.2 8.5-10.1 mg/dl Total Bilirubin 0.3 0.2-1 mg/dl Aspartate Amino Transf (AST/SGOT) 22 15-37 U/L Alanine Aminotransferase (ALT/SGPT) 33 12-78 U/L Alkaline Phosphatase 92 45-117 U/L Troponin I < 0.015 < 0.015 0-0.045 ng/ml Pro-B-Type Natriuretic Peptide 1201 0-900 pg/ml Total Protein 8.1 6.4-8.2 gm/dl Albumin 3.2 3.4-5.0 gm/dl Globulin 4.9 2.5-4.0 gm/dl Albumin/Globulin Ratio 0.7 0.9-2 Beta-Hydroxybutyric Acid 3.04 0.2-2.81 mg/dL Arterial Blood pH 7.41 7.35-7.45 Arterial Blood Partial Pressure CO2 54 35-46 mmHg Arterial Blood Partial Pressure O2 57 80-95 mm/Hg Arterial Blood HCO3 34 19-24 mmol/L Arterial Blood Oxygen Saturation 87.8 90-95 % Arterial Blood Base Excess 7.3 -9-1.8 mEq/L Arterial Blood Gas Delivery 4L Alexandr Test POS POS Urine Color YELLOW Urine Appearance CLEAR CLEAR Urine pH 6.5 4.5-7.5 Urine Specific [place] 1.018 1.000-1.030 Urine Protein NEG NEG Urine Glucose (UA) 3+ NEG Urine Ketones NEG NEG Urine Occult Blood 1+ NEG Urine Nitrite NEG NEG Urine Bilirubin NEG NEG Urine Urobilinogen NEG NEG Urine Leukocyte Esterase NEG NEG Urine WBC (Auto) 1-5 0-5 /hpf Urine RBC (Auto) 0-4 0-4 /hpf Urine Hyaline Casts (Auto) 0 0-5 /lpf Urine Epithelial Cells (Auto) 5-10 0-5 /lpf Urine Bacteria (Auto) NEG NEG Test 04/05/17 17:40 04/05/17 20:17 04/05/17 22:39 04/06/17 02:19 Range/Units Bedside Glucose 317 351 384 70-90 mg/dl Troponin I 0.016 0-0.045 ng/ml Test 04/06/17 04:29 04/06/17 04:33 04/06/17 06:40 Range/Units Sodium Level 139 136-145 mmol/L Potassium Level 4.8 3.5-5.1 mmol/L Chloride Level 100 98-107 mmol/L Carbon Dioxide Level 36 21-32 mmol/L Anion Gap 3.0 3-11 mmol/L Blood Urea Nitrogen 21 7-18 mg/dl Creatinine 1.10 0.60-1.20 mg/dl Est Creatinine Clear Calc Drug Dose 58.5 ml/min Estimated GFR () 63.2 Estimated GFR (Non- 54.5 BUN/Creatinine Ratio 18.6 10-20 Random Glucose 291 70-99 mg/dl Calcium Level 9.7 8.5-10.1 mg/dl Troponin I < 0.015 0-0.045 ng/ml White Blood Count 9.23 4.8-10.8 K/uL Red Blood Count 4.13 4.2-5.4 M/uL Hemoglobin 12.5 12.0-16.0 g/dL Hematocrit 38.8 37-47 % Mean Corpuscular Volume 93.9 80-100 fL Mean Corpuscular Hemoglobin 30.3 25-34 pg Mean Corpuscular Hemoglobin Concent 32.2 32-36 g/dl RDW Standard Deviation 43.4 36.4-46.3 fL RDW Coefficient of Variation 12.6 11.5-14.5 % Platelet Count 296 130-400 K/uL Mean Platelet Volume 10.2 7.4-10.4 fL Prothrombin Time 50.2 9.0-12.0 SECONDS Prothromb Time International Ratio 4.4 0.9-1.1 Bedside Glucose 227 70-90 mg/dl
--- NOTE | 2017-04-06 10:57 | HISTORY & PHYSICAL EXAMINATION ---
DATE OF ADMISSION: 04/05/2017 PRIMARY CARE PHYSICIAN: Dr. Goins. CHIEF COMPLAINT: Increasing shortness of breath for the last 2 weeks. HISTORY OF PRESENT COMPLAINT: She is a 61-year-old female with significant past medical history including severe COPD with ongoing smoking, cor pulmonale, paroxysmal atrial fibrillation, chronic kidney disease, chest pain status post mitral valve repair on long-term anticoagulation, hyperlipidemia, osteoarthritis, bipolar disorder, type 2 diabetes and hypertension, apparently has been complaining of shortness of breath for the last 2 weeks. She has had 4 ER visits since last 2 weeks with ongoing shortness of breath and she has had 2 courses of antibiotic recently. She was seen by her primary care physician for the same reason and was started on intravenous and oral Levaquin for the last 2 days. The condition did not get better. She has been having more shortness of breath, chest tightness, cough with productive of yellow phlegm so she was brought into the Emergency Room for further evaluation today. In the ER, she was hemodynamically stable. She did not have any fever and her lab work remained unremarkable including chest x-ray which did not show any pneumonia, but did show possible pulmonary edema. From that point, she was admitted to telemetry unit for continuation of care. PAST MEDICAL HISTORY: Significant for paroxysmal atrial fibrillation, cor pulmonale, chronic obstructive pulmonary disease, chronic kidney disease, bipolar disorder, type 2 diabetes, GERD, sleep apnea, hypothyroidism, and hyperlipidemia. 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 FAMILY HISTORY: Only significant for mother had diabetes at the age of 55 and sister has Crohn's disease. SOCIAL HISTORY: She is . She lives with her , she has 1 child. She continues to smoke about 0.5-1 pack per day. She does not use any alcohol and she uses her walker to move around at home and she uses chronic oxygen. REVIEW OF SYSTEMS: CENTRAL NERVOUS SYSTEM: No headache, no blurred vision, no numbness or tingling in the extremities. RESPIRATORY: Has shortness of breath with coughing productive of yellowish phlegm. No fevers, chills or rigors. CARDIOVASCULAR: Has chest tightness and chest pain, nondisplaced. GASTROINTESTINAL: No abdominal pain, distention, nausea or vomiting. GENITOURINARY: No problem with urine and/or bowel habit. MUSCULOSKELETAL: Does have osteoarthritis changes but no acute arthritis in any joint. SKIN: Generally, she denies to have any rash and/or enlargement of lymph nodes. ALLERGIES: SHE IS ALLERGIC TO BEES STING, LISINOPRIL, METRONIDAZOLE, STRAWBERRY, ALPRAZOLAM, LACTULOSE, PREDNISONE MILD, LITHIUM AND ALSO BARBEQUE CHIPS. MEDICATIONS: She has been on azithromycin, she finished her course, ephinephrine as directed, furosemide 40 mg b.i.d., Zofran sublingual as directed, oxycodone 10 mg q. 6 hourly as needed, calcitriol 0.5 mg tablet daily, Lomotil 3 liters nasal cannula continuous, albuterol nebulized solutions q. 6 hourly p.r.n., amitriptyline 50 mg at night, amlodipine 10 mg in the morning, atorvastatin 40 mg at night, she did take 10 mg daily, vitamin D 1000 units daily, Colestid 1 gram b.i.d., Lomotil as directed, Duragesic patch 50 mcg every 72 hours, Advair Diskus 250/50 one puff b.i.d., gabapentin 800 mg t.i.d., Vistaril 25 mg q. 6 hourly as needed, Lantus 40 units subQ twice daily, Synthroid 50 mcg daily, Imodium 2 mg as directed, lorazepam 0.5 mg at bedtime as needed, methocarbamol 500 mg tablet t.i.d. as needed, metoclopramide 5 mg a.c. at bedtime, Zaroxolyn 2.5 mg daily, metolazone tartrate 50 mg tablet 75 b.i.d., multivitamin as directed, Bactroban 2% ointment topical b.i.d., olanzapine 2.5 mg at bedtime, Protonix 40 mg at night, potassium chloride 10 mEq tablet 2 tablets b.i.d., ranitidine 300 mg at night, Spiriva 1 puff daily, trazodone 150 mg tablet 2 tablets at night, Effexor 75 mg tablet 225 q.a.m., warfarin sodium as directed. PHYSICAL EXAMINATION: GENERAL: On examination in the Emergency Room, she was having moderate distress at rest but no chest pain. VITAL SIGNS: Temperature of 36.6, pulse was 95, blood pressure 146/64, saturation 90% on 4 liters nasal cannula. HEAD, EYES, EARS, NOSE, AND THROAT: Unremarkable. NECK: Supple. No JVD, no bruit. CHEST: Decreased breath sounds with coarse crackles and wheezing bilaterally. HEART: S1, S2 irregular with prosthetic valve sounds, 2/6 systolic murmur over precordium. ABDOMEN: Soft, benign, nontender, no organomegaly. Bowel sounds present. EXTREMITIES: Chronic skin changes in both the lower legs with trace edema bilaterally. MUSCULOSKELETAL SYSTEM: No acute arthritis in any joint CENTRAL NERVOUS SYSTEM: She was alert, awake, oriented x3 and no focal sensory and/or motor deficit appreciated. LABORATORY DATA: Noted today white count was 8.94, H&H 14.2/41.6, platelets 281, sodium 130, potassium 4.5, chloride 91, carbon dioxide 33, BUN 20, creatinine 1.40, random glucose 549, calcium 10.2. BNP 1201 and blood gas with pH 7.41, pCO2 54, pO2 57, saturation 87%. INR 3.8. PT ratio 1.9. Chest x-ray reported as no change in mild interstitial thickening suggestive of pulmonary edema, stable cardiomegaly. EKG was in sinus rhythm with premature atrial complexes, possible left ventricular enlargement, right bundle branch block, rate of 88 with normal axis. EKG as I mentioned earlier compared with EKG of of this month no significant change except PACs. IMPRESSION AND PLAN: 1. Chronic obstructive pulmonary disease exacerbation, most likely infective exacerbation. We will continue with Levaquin orally for now and will give her usual bronchodilators and steroids in smaller doses IV. Will continue her oxygen as usual.Serial Troponin to R/O ACS -very doubtful though. 2. History of cor pulmonale with probable pulmonary edema. We will continue her Lasix but given IV twice a day, continue her metolazone and monitor kidney function while in the hospital and fluid intake output as well. 3. Chronic kidney disease stage III. Creatinine is 1.4 today. Continue with diuretics and metolazone and monitor kidney function while in the hospital. 4. History of paroxysmal atrial fibrillation with mitral valve repair. Rate is controlled right now in sinus rhythm. Will continue with her beta mana and also anticoagulation. 5. Bipolar disorder. Continue with her current antidepressant medication. 6. Hypertension. Blood pressure seems stable at this time. Continue beta mana and amlodipine. 7. Diabetes type 2 with high blood sugar. We will check hemoglobin A1c. We will continue with insulin and sliding scale coverage and pharmacy consult for glycemic control. 8. Gastrointestinal prophylaxis with Protonix and ranitidine. 9. Hypothyroidism. Continue replacement. 10. Deep venous thrombosis prophylaxis with Coumadin. 11. CODE STATUS. SHE WILL BE A FULL CODE and the case was discussed with her and her . In my clinical judgment, the beneficiary meets criteria as per CMS for 2 midnight stay in the hospital. VAHID
[2017-04-06] MEDS: LEVOFLOXACIN 500 MG TAB PO SCH (11:45)
[2017-04-06] MEDS: INSULIN ASPART 100 UNITS/ML 3 ML PEN SC SCH ×3 (12:05→22:19)
[2017-04-06] MEDS ORDERED: INSULIN REGULAR 8 UNITS in SYRINGE 7.92 ML IV SCH (12:15)
--- NOTE | 2017-04-06 13:29 | Pharmacy Progress Note ---
Glycemic Control Progress Note Date of Service Apr 06, 2017. Scope Glycemic Pharmacist consulted for glycemic control to write orders per [facility] inpatient glycemic control protocol. Objective Accuchecks BSG (last 24hrs): Test 04/05/17 13:30 04/05/17 17:40 04/05/17 20:17 04/06/17 02:19 Random Glucose 549 mg/dl (70-99) Bedside Glucose 317 mg/dl (70-90) 351 mg/dl (70-90) 384 mg/dl (70-90) Test 04/06/17 04:29 04/06/17 06:40 04/06/17 11:24 Random Glucose 291 mg/dl (70-99) Bedside Glucose 227 mg/dl (70-90) 400 mg/dl (70-90) HbA1c: Test 04/06/17 04:33 Recent Pertinent Medications The patient is currently receiving: * Basal insulin: Lantus 20 units SQ last night and 50 units this morning * Correctional Insulin: Novolog Correction per scale ACHS Goal Range: Low 110 mg/dL - High 140 mg/dL Correction Factor: 25 mg/dL/unit * Prandial insulin: Per carb ratio of 1 unit per 7 grams CHO consumed Outpatient Anti-Diabetic Meds Lantus 40 units SQ BID Assessment & Plan ASSESSMENT: * See progress note from 04/05/2017 for more background info, in short: Ms Minaya is a 61 y/o F admitted with a COPD exacerbation. She was initially started on IV steroids (received 40 mg IV x 1 dose then 20 mg IV q8 hours x 2 doses). This has been changed to prednisone 40 mg starting tomorrow. * Pt receiving SQ basal bolus insulin regimen for hyperglycemia secondary to baseline DM (outpatient regimen on hold),COPD exacerbation on levofloxacin, and steroids as described above * Patient is currently receiving an average of ? units of insulin per day * unable to determine as less than 24 hours of data available* * 50 units of basal insulin this morning and scheduled for 20 units today * 35 units of prandial/correctional insulin - overnight and for breakfast/lunch * BSGs ranging 227 - 549 mg/dl over the past 24hrs * Changes needed to insulin regimen: * AM Fasting BSG = 227 mg/dl. This is in slightly above goal range for patient based on inpatient targets and co-morbidities. The patient states she took Lantus 40 units prior to admission. She received Lantus 20 units last night. This morning, the blood sugar was 384 mg/dL at 2 AM and 291 mg/dL at 5 AM. Her Lantus dose was increased to 20 units tonight with tomorrow's dose dependent on the outcome today. Previous hospitalizations have shown that the patient is stable on 20-24 units of Lantus twice daily; however, the effect of steroids this time appear to have affected the patient differently. * Post-prandial BSGs have been elevated. Since the effects of weight based stress of 3 have not been evaluated I will continue this. For lunch, the patient was elevated at 400 mg/dL. A 0.1 unit/kg of regular insulin was ordered. The correctional insulin was loosened slightly to weight based stress of 2 so that the blood sugar was not decreased too substantially. This was re- tightened to weight based stress of 3 after lunch. Ordered overnight Accuchecks to ensure adequate 24 hour coverage. * Total daily dose is currently unknown. units. PLAN FOR INPATIENT GLYCEMIC CONTROL: * Basal insulin * Lantus 20 units SQ tonight then determine via results * Bolus insulin * NovoLog per scale ACHS or Q6hrs while NPO * Goal Range: Low 110 mg/dL - High 140 mg/dL * Correction Factor: 20 mg/dL/unit * Nutritional / Prandial insulin per carb ratio of 1 unit per 6 grams CHO consumed RECOMMENDATIONS FOR DISCHARGE: * currently unable to make recommendations as blood sugar control as an outpatient not known. * Please note that the plan above was derived based on current level of insulin resistance and hospital stress. These recommendations are appropriate for inpatient admission only. Plan of care upon discharge will need to be reassessed to avoid potential outpatient hypo/hyperglycemia. Thank you.
[2017-04-06] MEDS ORDERED: WARFARIN SOD 5 MG TAB PO SCH (16:00)
[2017-04-06] MEDS ORDERED: INSULIN GLARGINE SOLOSTAR 100 UNITS/ML 3 ML PEN SC SCH ×3 (21:00)
[2017-04-06] MEDS: TRAZODONE HCL 100 MG TAB PO SCH (22:08)
[2017-04-06] MEDS: PANTOprazole SOD 40 MG TAB PO SCH (22:09)
[2017-04-06] MEDS: AMITRIPTYLINE HCL 50 MG TAB PO SCH (22:09)
[2017-04-06] MEDS: ATORVASTATIN 40 MG TAB PO SCH (22:09)
[2017-04-06] MEDS: RANITIDINE HCL 150 MG TAB PO SCH (22:09)
[2017-04-06] MEDS: OLANZAPINE 2.5 MG TAB PO SCH (22:10)
[2017-04-07] VITALS (10 sets, daily range): BP systolic 107–142; BP diastolic 49–82; PULSE 65–98; TEMP 36.2–36.7; O2SAT 91–97; BMI 31.6
[2017-04-07] MEDS: CHECK FENTANYL PATCH PLACEMENT SCH ×3 (00:03→16:00)
[2017-04-07] MEDS: INSULIN ASPART 100 UNITS/ML 3 ML PEN SC SCH ×6 (00:07→20:46)
[2017-04-07] MEDS: LEVOTHYROXINE 50 MCG TAB PO SCH (05:50)
[2017-04-07 06:19] LABS: HEMATOCRIT 41.7 % (37-47); MEAN CELL VOLUME 93.3 fL (80-100); MEAN CORPUSCULAR HEMOGLOBIN 31.1 pg (25-34); MEAN CORPUSCULAR HGB CONC 33.3 g/dl (32-36); MEAN PLATELET VOLUME 10.2 fL (7.4-10.4); PLATELET COUNT 302 K/uL (130-400); RED BLOOD COUNT 4.47 M/uL (4.2-5.4); WHITE BLOOD COUNT 9.58 K/uL (4.8-10.8)
[2017-04-07 06:42] LABS: INR 3.6 (0.9-1.1); PROTHROMBIN TIME (PATIENT) 40.3 SECONDS (9.0-12.0)
[2017-04-07 06:58] LABS: BUN/CREATININE RATIO 21.5 (10-20); CALCIUM 10.1 mg/dl (8.5-10.1); CREATININE 1.2 mg/dl (0.60-1.20); POTASSIUM 3.4 mmol/L (3.5-5.1)
[2017-04-07 07:02] LABS: ESTIMATED AVERAGE GLUCOSE 292 mg/dl; HA1C FLAG Normal (Normal)
[2017-04-07] MEDS: ALBUT/IPRATROP 3MG/0.5MG NEB 3 ML VIAL INH SCH ×4 (07:10→19:01)
[2017-04-07] MEDS: TIOTROPIUM BROMIDE 5 PUFF/90 MCG INH INH SCH (09:30)
[2017-04-07] MEDS: FLUTICASONE/SALMETEROL 250/50 (ADVAIR) 14 PUFF/1 INHALER INH SCH ×2 (09:30→20:40)
[2017-04-07] MEDS: METOLAZONE 2.5 MG TAB PO SCH (09:31)
[2017-04-07] MEDS: GABAPENTIN 800 MG TAB PO SCH ×3 (09:31→20:41)
[2017-04-07] MEDS: FUROSEMIDE INJ 40 MG in SYRINGE 0 ML IV SCH ×2 (09:31→20:43)
[2017-04-07] MEDS: COLESTIPOL HCL 1 GM TAB PO SCH ×3 (09:31→21:17)
[2017-04-07] MEDS: POTASSIUM CHLORIDE 20 MEQ TABCR PO SCH ×2 (09:32→20:40)
[2017-04-07] MEDS: CHOLECALCIFEROL 1000 INTER.UNIT TAB PO SCH (09:32)
[2017-04-07] MEDS: METOCLOPRAMIDE HCL 5 MG TAB PO SCH ×4 (09:32→20:40)
[2017-04-07] MEDS: MULTIVITAMIN TAB PO SCH (09:32)
[2017-04-07] MEDS: VENLAFAXINE HCL XR 75 MG CAPXR PO SCH (09:33)
[2017-04-07] MEDS: MUPIROCIN 2% OINT 22 GM TUBE TOP SCH ×2 (09:33→20:39)
[2017-04-07] MEDS: AMLODIPINE BESYLATE 5 MG TAB PO SCH (09:33)
[2017-04-07] MEDS: NICOTINE 14 MG/24 HR TDSY TD SCH (09:33)
[2017-04-07] MEDS: LEVOFLOXACIN 500 MG TAB PO SCH (09:34)
[2017-04-07] MEDS: CETIRIZINE HCL 10 MG TAB PO SCH (09:34)
[2017-04-07] MEDS: METOPROLOL TARTRATE 50 MG TAB PO SCH ×2 (09:39→20:44)
[2017-04-07] MEDS: INSULIN GLARGINE SOLOSTAR 100 UNITS/ML 3 ML PEN SC SCH ×2 (09:47→20:47)
--- NOTE | 2017-04-07 10:13 | Progress Note ---
Internal Med Progress Note Date of Service: Apr 07, 2017. Provider Documentation: SUBJECTIVE: Patient feeling better than on admission SOB has improved. Cough present and no significant sputum production No chest pain, nausea, vomiting, fever, chills, nasal congestion, orthopnea, leg swelling. On 2 L oxygen- 91% Weight down by 3.5 Lbs and negative urinary output OBJECTIVE: Vital Signs-as noted below Exam: General-AAOX3, no distress Neck-Supple, no JVD Lungs-AEBE decreased, mild wheezing heard, few rales Heart-S1, S2 normal Abdomen-Soft, non tender, non distended, BS present Extremities-No edema Lab data as noted below. ASSESSMENT & PLAN: Patient is a 61-year-old female with multiple comorbidities who had 4 ER visits x 2 weeks for SOB, has had 2 courses of antibiotics recently, admitted to hospital for worsening SOB. Being treated for CHF and COPD exacerbation. Still receiving IV lasix, Nebs, steroids and doing better. ASSESSMENT AND PLAN: ACUTE ON CHRONIC SOB : In setting of CHRONIC HYPOXIC RESPIRATORY FAILURE, COPD, MODERATE PULMONARY HYPERTENSION, HX OF NON COMPLIANCE WITH OXYGEN, ACTIVE SMOKING: Likely acute component is multifactorial: COPD exacerbation, CHF exacerbation -Oxygen down to 2 L (at home 3 L) --> titrate it down to maintain sao2 88-92% -IV lasix as below -Nebs, Steroids, Antibiotics as below -CXR- no pneumonia; ABGs reviewed- no CO2 retention CHF EXACERBATION, DIASTOLIC WITH PRESERVED EF -CXR - pulmonary congestion, mild, Pro BNP 1200 -Clinically improving with weight down by 3.5 lbs and negative balance -IV Lasix 40 mg BID (Home dose is 40 mg PO BID) - Day 3. Likely transition to PO tomorrow. -Work up- EKG- PACs +, sinus rhythm, Trop x 1 negative, repeat- pending., Echo 2015- reviewed- EF > 70%, will repeat Echo this time. COPD EXACERBATION -Improving -Oxygen 2 L (3 L at home), known for non compliance with oxygen as still smokes -Duo Nebs, Levofloxacin PO (Day 3), IV solu medrol--> Changed to PO prednisone on 04/06/17 (Day 2) CHRONIC PAIN SYNDROME -On Fentanyl patch 50 mcg q 72 hours. -Cautious about pain medications- narcotics. -Will avoid IV narcotics. PO oxycodone prn for severe pain only HX OF ATRIAL FIBRILLATION/ MITRAL VALVE REPAIR -NSR -On Metoprolol 75 mg PO BID, Coumadin -INR supra therapeutic. Hold coumadin today. INR monitoring daily DEPRESSION/BIPOLAR DISORDER -Stable -Continue with home medications DM-2 -ISS, Accuchecks -Monitor while on steroids HTN- Stable -Continue with home medications HYPOTHYROIDISM -On levothyroxine, TSH normal DARIUS on CPAP GERD On protonix TOBACCO ABUSE DISORDER Cessation advised. DVT PROPHYLAXIS INR supra therapeutic, Coumadin FULL CODE DISPOSITION Expected discharge home when stable Continue with tele monitoring Likely discharge in 1-2 days Vital Signs: Date Time Temp Pulse Resp B/P (MAP) Pulse Ox O2 Delivery O2 Flow Rate FiO2 04/07/17 08:16 36.6 86 16 134/68 (90) 91 Nasal Cannula 2.0 04/07/17 07:29 91 16 92 Nasal Cannula 2.0 04/07/17 04:00 Nasal Cannula 2.0 04/07/17 03:36 36.5 69 17 107/49 (68) 93 Nasal Cannula 2.0 04/07/17 00:02 Nasal Cannula 2.0 04/06/17 23:01 36.7 72 18 125/72 (89) 92 Nasal Cannula 2.0 Humidified Oxygen 04/06/17 20:00 36.7 81 20 124/77 (93) Nasal Cannula 2.0 04/06/17 20:00 Nasal Cannula 2.0 04/06/17 19:14 77 16 92 Nasal Cannula 2.0 04/06/17 18:55 36.7 73 18 124/77 (93) 90 Nasal Cannula 2.0 Humidified Oxygen 04/06/17 15:52 36.0 85 20 127/81 (96) 90 Nasal Cannula 3.0 Humidified Oxygen 04/06/17 14:31 67 18 93 Nasal Cannula 4.0 04/06/17 12:29 36.6 58 18 90/60 (70) 94 Nasal Cannula 04/06/17 12:00 Nasal Cannula 4.0 04/06/17 11:08 62 18 95 Nasal Cannula 4.0 Lab Results: Results Past 24 Hours Test 04/06/17 11:24 04/06/17 14:22 04/06/17 15:46 04/06/17 15:47 Range/Units Bedside Glucose 400 114 68 73 70-90 mg/dl Test 04/06/17 15:48 04/06/17 16:08 04/06/17 19:57 04/06/17 23:58 Range/Units Bedside Glucose 69 89 224 281 70-90 mg/dl Test 04/07/17 04:00 04/07/17 05:46 04/07/17 06:46 04/07/17 10:01 Range/Units Bedside Glucose 154 185 70-90 mg/dl White Blood Count 9.58 4.8-10.8 K/uL Red Blood Count 4.47 4.2-5.4 M/uL Hemoglobin 13.9 12.0-16.0 g/dL Hematocrit 41.7 37-47 % Mean Corpuscular Volume 93.3 80-100 fL Mean Corpuscular Hemoglobin 31.1 25-34 pg Mean Corpuscular Hemoglobin Concent 33.3 32-36 g/dl RDW Standard Deviation 43.2 36.4-46.3 fL RDW Coefficient of Variation 12.6 11.5-14.5 % Platelet Count 302 130-400 K/uL Mean Platelet Volume 10.2 7.4-10.4 fL Prothrombin Time 40.3 9.0-12.0 SECONDS Prothromb Time International Ratio 3.6 0.9-1.1 Sodium Level 135 136-145 mmol/L Potassium Level 3.4 3.5-5.1 mmol/L Chloride Level 92 98-107 mmol/L Carbon Dioxide Level 37 21-32 mmol/L Anion Gap 6.0 3-11 mmol/L Blood Urea Nitrogen 26 7-18 mg/dl Creatinine 1.20 0.60-1.20 mg/dl Est Creatinine Clear Calc Drug Dose 52.1 ml/min Estimated GFR () 56.9 Estimated GFR (Non- 49.1 BUN/Creatinine Ratio 21.5 10-20 Random Glucose 174 70-99 mg/dl Calcium Level 10.1 8.5-10.1 mg/dl
[2017-04-07] MEDS ORDERED: POTASSIUM CHLORIDE 20 MEQ TABCR PO SCH (10:15)
--- NOTE | 2017-04-07 10:31 | Pharmacy Progress Note ---
Glycemic Control Progress Note Date of Service Apr 07, 2017. Scope Glycemic Pharmacist consulted for glycemic control to write orders per [facility] inpatient glycemic control protocol. Objective Accuchecks BSG (last 24hrs): Test 04/06/17 11:24 04/06/17 14:22 04/06/17 15:46 04/06/17 15:47 Bedside Glucose 400 mg/dl (70-90) 114 mg/dl (70-90) 68 mg/dl (70-90) 73 mg/dl (70-90) Test 04/06/17 15:48 04/06/17 16:08 04/06/17 19:57 04/06/17 23:58 Bedside Glucose 69 mg/dl (70-90) 89 mg/dl (70-90) 224 mg/dl (70-90) 281 mg/dl (70-90) Test 04/07/17 04:00 04/07/17 05:46 04/07/17 06:46 Bedside Glucose 154 mg/dl (70-90) 185 mg/dl (70-90) Random Glucose 174 mg/dl (70-99) HbA1c: Test 04/06/17 04:33 Hemoglobin A1c 11.8 % (4.5-5.6) H Recent Pertinent Medications The patient is currently receiving: * Basal insulin: Lantus 50 units qAM + 10 units qPM (04/06) * Correctional Insulin: Novolog Correction per scale ACHS Goal Range: Low 120 mg/dL - High 160 mg/dL Correction Factor: 20 mg/dL/unit * Prandial insulin: Per carb ratio of 1 unit per 10 grams CHO consumed Outpatient Anti-Diabetic Meds Basal Insulin * Lantus 40 units SQ BID Assessment & Plan ASSESSMENT: * See progress note from 04/05/17 for more background info, in short: * Pt receiving SQ basal bolus insulin regimen for hyperglycemia secondary to baseline DM (outpatient regimen on hold), infection, and steroids. Pt is on day# 3 of antibiotic therapy with Levaquin. She was on high dose IV steroids for two days, then switched to prednisone 40 mg po daily starting today. * Patient received 111 units of SQ insulin plus a 8 unit IV bolus in the past 24 hours * 60 units of basal insulin * 51 units of prandial/correctional insulin * BSGs ranging 68 - 400 mg/dl over the past 24hrs * Changes needed to insulin regimen: * AM Fasting BSG = 185 mg/dl. This is above goal range for patient based on inpatient targets and co-morbidities. Based on elevated fasting, it would appear that basal insulin needs increased, however, fasting BSG should improve with tapering of steroids. * Post-prandial BSGs are elevated, therefore need to tighten CF/CR * I anticipate a total daily dose around 100 units. Will re-distribute regimen so that patient receives higher percentage of bolus insulin while on steroids since they have most profound effect on post-prandial BSGs. * Additional notes / comments: * Once steroids are discontinued, will aim for 50%:50% basal:prandial to prevent hypo/hyperglycemia. PLAN FOR INPATIENT GLYCEMIC CONTROL: * Basal insulin - decrease * Lantus 25 units SQ BID * Bolus insulin - tighten CF/CR * NovoLog per scale ACHS * Goal Range: Low 120 mg/dL - High 160 mg/dL * Correction Factor: 12 mg/dL/unit * Nutritional / Prandial insulin per carb ratio of 1 unit per 4 grams CHO consumed RECOMMENDATIONS FOR DISCHARGE: * Poor outpatient control evidenced by A1c of 11.8% (04/06/17) * Home insulin regimen is 100% basal. To improve glycemic control, meal coverage with insulin or an additional anti-diabetic agent is needed. * Patient reported to [facility] that she has taken Novolog in the past and discontinued the medication herself due to consistent lows * Options * 1. Add GLP-1 to current regimen (if covered by insurance) * 2. Add meal coverage with Novolog - start with 5 units TID with meals, administer within 15 minutes of starting a meal - consider decreasing Lantus to 35 units BID to reduce risk of hypoglycemia, although, I would not expect hypoglycemia d/t Alc of 11.8% - follow up with outpatient PCP or [employer] to titrate regimen * Please note that the plan above was derived based on current level of insulin resistance and hospital stress. These recommendations are appropriate for inpatient admission only. Plan of care upon discharge will need to be reassessed to avoid potential outpatient hypo/hyperglycemia. Thank you.
--- NOTE | 2017-04-07 15:30 | ECHOCARDIOGRAM REPORT ---
*NOTICE TO RECEIVING DEMOCRAT AGENCY This information is strictly Confidential and protected under [place] law. [place] law prohibits you from making any further disclosure of this information unless further disclosure is expressly permitted by the written consent of the person to whom it pertains or is authorized by law. A general authorization for the release of medical or other information is not sufficient for this purpose. Hospital accepts no responsibility if the information is made available to any other person, INCLUDING THE PATIENT. Interpretation Summary * Name: ALVARO ROBERTS I Study Date: 04/07/2017 02:02 PM BP: 142/76 mmHg * Patient Location: [facility] HR: 85 * : 1955 (M/d/yyyy) Gender: Female Height: 64 in * Age: 61 yrs Ethnicity: [place] Weight: 184 lb * Ordering Physician: ADELAIDA PEPPER * Performed By: Lidia Curiel RCS * * Reason For Study: CHF * BSA: 1.9 m2 * Compared to prior study, there is no significant change. * -- Conclusions -- * The left ventricle is normal in size. * There is moderate concentric left ventricular hypertrophy. * The left ventricular wall motion is normal. * Left ventricular systolic function is normal. * Ejection Fraction = 65-70%. * The left atrium is moderately dilated. * There is evidence of a previous mitral valve repair with restricted posterior leaflet excursion. * Significant mitral regurgitation is absent. * There is no mitral valve stenosis. Procedure Details * A complete two-dimensional transthoracic echocardiogram was performed (2D, M-mode, Doppler and color flow Doppler). Left Ventricle * The left ventricle is normal in size. * There is moderate concentric left ventricular hypertrophy. * Left ventricular systolic function is normal. * Ejection Fraction = 65-70%. * The left ventricular wall motion is normal. Right Ventricle * The right ventricle is normal in size and function. Atria * The left atrium is moderately dilated. * Right atrial size is normal. * No ASD detected; PFO is not assessed. Mitral Valve * There is evidence of a previous mitral valve repair with restricted posterior leaflet excursion. * There is no mitral valve stenosis. * Significant mitral regurgitation is absent. * An annuloplasty ring is noted in the mitral position. Tricuspid Valve * The tricuspid valve is normal. * There is no tricuspid stenosis. * There is trace tricuspid regurgitation. Aortic Valve * The aortic valve is trileaflet. * No hemodynamically significant valvular aortic stenosis. * No aortic regurgitation is present. Pulmonic Valve * The pulmonic valve is not well visualized. Great Vessels * The aortic root is normal size. Pericardium/Pleural * There is no pericardial effusion. Great Vessels * Normal inferior vena cava diameter and respiratory variation suggests normal central venous pressure. MMode 2D Measurements and Calculations IVSd 2.0 cm IVSs 2.1 cm LVIDd 2.9 cm LVIDs 1.9 cm LVPWd 1.4 cm LVPWs 1.4 cm IVS/LVPW 1.4 FS 33.9 % EDV(Teich) 32.2 ml ESV(Teich) 11.4 ml EF(Teich) 64.6 % EDV(cubed) 24.4 ml ESV(cubed) 7.0 ml EF(cubed) 71.2 % % IVS thick 8.9 % % LVPW thick 0.85 % LV mass(C)d 187.1 grams LV mass(C)dI 99.1 grams/m\S\2 LV mass(C)s 132.4 grams LV mass(C)sI 70.1 grams/m\S\2 SV(Teich) 20.8 ml SI(Teich) 11.0 ml/m\S\2 SV(cubed) 17.4 ml SI(cubed) 9.2 ml/m\S\2 Ao root diam 2.7 cm Ao root area 5.7 cm\S\2 ACS 1.7 cm LA dimension 4.4 cm LA/Ao 1.6 LVOT diam 2.0 cm LVOT area 3.2 cm\S\2 LVAd ap4 27.1 cm\S\2 LVLd ap4 6.6 cm EDV(MOD-sp4) 91.1 ml EDV(sp4-el) 94.8 ml LVAs ap4 16.6 cm\S\2 LVLs ap4 5.7 cm ESV(MOD-sp4) 41.0 ml ESV(sp4-el) 41.3 ml EF(MOD-sp4) 55.0 % EF(sp4-el) 56.4 % LVAd ap2 25.9 cm\S\2 LVLd ap2 6.6 cm EDV(MOD-sp2) 82.1 ml EDV(sp2-el) 86.6 ml LVAs ap2 16.9 cm\S\2 LVLs ap2 6.0 cm ESV(MOD-sp2) 38.6 ml ESV(sp2-el) 40.7 ml EF(MOD-sp2) 53.0 % EF(sp2-el) 53.1 % LVLd %diff -0.40 % EDV(MOD-bp) 86.5 ml LVLs %diff 5.0 % ESV(MOD-bp) 40.5 ml EF(MOD-bp) 53.2 % SV(MOD-sp4) 50.1 ml SI(MOD-sp4) 26.5 ml/m\S\2 SV(MOD-sp2) 43.5 ml SI(MOD-sp2) 23.0 ml/m\S\2 SV(MOD-bp) 46.0 ml SI(MOD-bp) 24.4 ml/m\S\2 SV(sp4-el) 53.5 ml SI(sp4-el) 28.3 ml/m\S\2 SV(sp2-el) 45.9 ml SI(sp2-el) 24.3 ml/m\S\2 Doppler Measurements and Calculations MV E max oralia 146.9 cm/sec MV A max oralia 154.8 cm/sec MV E/A 0.95 MV P1/2t max oralia 162.4 cm/sec MV P1/2t 179.0 msec MVA(P1/2t) 1.2 cm\S\2 MV dec slope 265.8 cm/sec\S\2 MV dec time 0.53 sec Ao V2 max 128.8 cm/sec Ao max PG 6.6 mmHg Ao max PG (full) -0.40 mmHg MERCEDES(V,A) 3.3 cm\S\2 MERCEDES(V,D) 3.3 cm\S\2 LV V1 max PG 7.0 mmHg LV V1 max 132.7 cm/sec PA V2 max 127.1 cm/sec PA max PG 6.5 mmHg
[2017-04-07] MEDS: OXYCODONE HCL IR 5 MG TAB (IMMEDIATE RELEASE) PO PRN (16:37)
[2017-04-07] MEDS: DOXYCYCLINE HYCLATE 100 MG CAP PO SCH (20:39)
[2017-04-07] MEDS: RANITIDINE HCL 150 MG TAB PO SCH (20:41)
[2017-04-07] MEDS: ATORVASTATIN 40 MG TAB PO SCH (20:42)
[2017-04-07] MEDS: PANTOprazole SOD 40 MG TAB PO SCH (20:42)
[2017-04-07] MEDS: OLANZAPINE 2.5 MG TAB PO SCH (20:42)
[2017-04-07] MEDS: AMITRIPTYLINE HCL 50 MG TAB PO SCH (20:42)
[2017-04-07] MEDS: TRAZODONE HCL 100 MG TAB PO SCH (20:42)
[2017-04-08] VITALS (10 sets, daily range): BP systolic 105–168; BP diastolic 63–95; PULSE 61–97; TEMP 36.3–36.8; O2SAT 91–99
[2017-04-08] MEDS: LORAZEPAM 0.5 MG TAB PO PRN ×2 (00:44→21:04)
[2017-04-08] MEDS: INSULIN ASPART 100 UNITS/ML 3 ML PEN SC SCH ×6 (00:45→21:03)
[2017-04-08] MEDS: CHECK FENTANYL PATCH PLACEMENT SCH ×4 (00:46→23:37)
[2017-04-08] MEDS: LEVOTHYROXINE 50 MCG TAB PO SCH (06:08)
[2017-04-08 06:53] LABS: INR 1.5 (0.9-1.1); PROTHROMBIN TIME (PATIENT) 16.8 SECONDS (9.0-12.0)
[2017-04-08 07:10] LABS: BUN/CREATININE RATIO 30.4 (10-20); CALCIUM 9.5 mg/dl (8.5-10.1); CREATININE 1.4 mg/dl (0.60-1.20)
[2017-04-08] MEDS: ALBUT/IPRATROP 3MG/0.5MG NEB 3 ML VIAL INH SCH ×4 (08:08→19:29)
--- NOTE | 2017-04-08 08:47 | Pharmacy Progress Note ---
Glycemic Control Progress Note Date of Service Apr 08, 2017. Scope Glycemic Pharmacist consulted for glycemic control to write orders per [facility] inpatient glycemic control protocol. Objective Accuchecks BSG (last 24hrs): Test 04/07/17 11:35 04/07/17 14:14 04/07/17 16:11 04/07/17 20:26 Bedside Glucose 359 mg/dl (70-90) 185 mg/dl (70-90) 120 mg/dl (70-90) 220 mg/dl (70-90) Test 04/07/17 23:42 04/08/17 04:01 04/08/17 06:14 04/08/17 06:56 Bedside Glucose 373 mg/dl (70-90) 187 mg/dl (70-90) 143 mg/dl (70-90) Random Glucose 155 mg/dl (70-99) HbA1c: Test 04/06/17 04:33 Hemoglobin A1c 11.8 % (4.5-5.6) H Recent Pertinent Medications The patient is currently receiving: * Basal insulin: Lantus 25 units SQ BID * Correctional Insulin: Novolog Correction per scale ACHS Goal Range: Low 120 mg/dL - High 160 mg/dL Correction Factor: 15 mg/dL/unit * Prandial insulin: Per carb ratio of 1 unit per 5 grams CHO consumed Outpatient Anti-Diabetic Meds Basal Insulin Assessment & Plan ASSESSMENT: * See progress note from 04/05/17 for more background info, in short: * Pt receiving SQ basal bolus insulin regimen for hyperglycemia secondary to baseline DM (outpatient regimen on hold), infection, and steroids. Antibiotic therapy has been discontinued. She was on high dose IV steroids for two days, then switched to prednisone 40 mg po daily. * Patient received 109 units of SQ insulin over the past 24 hours * 50 units of basal insulin * 59 units of prandial/correctional insulin * BSGs ranging 120 - 373 mg/dl over the past 24hrs * Changes needed to insulin regimen: * AM Fasting BSG = 143 mg/dl. This is improved but remains slightly above goal range for patient based on inpatient targets and co-morbidities. Will give additional 5 units of Lantus this am. * Post-prandial BSGs remain elevated. CF/CR was tightened to 12/4 yesterday with lunch and was then changed back to 15/5 with dinner after BSG dropped from 359 to 120 mg/dL. BSG again became elevated post dinner, 220 mg/dL. Will continue current CF and tighten CR to allow for more meal-time insulin. * I anticipate a total daily dose around 120 units. Current regimen is distributed so that patient receives higher percentage of bolus insulin while on Prednisone. Steroids have most profound effect on post-prandial BSGs. PLAN FOR INPATIENT GLYCEMIC CONTROL: * Basal insulin - increase * Lantus 30 units given this morning, then Lantus 25-30 units SQ BID - 25 units for BSG less than 180 mg/dL - 30 units for BSG 180 mg/dL or more * Bolus insulin - tighten CR and goal range * NovoLog per scale ACHS * Goal Range: Low 120 mg/dL - High 140 mg/dL * Correction Factor: 15 mg/dL/unit * Nutritional / Prandial insulin per carb ratio of 1 unit per 4 grams CHO consumed RECOMMENDATIONS FOR DISCHARGE: * Poor outpatient control evidenced by A1c of 11.8% (04/06/17) * Home insulin regimen is 100% basal. To improve glycemic control, meal coverage with insulin or an additional anti-diabetic agent is needed. * Patient reported to Information Resources Manager that she has taken Novolog in the past and discontinued the medication herself due to consistent lows * Options * 1. Add GLP-1 to current regimen (if covered by insurance) * 2. Add meal coverage with Novolog - start with 5 units TID with meals, administer within 15 minutes of starting a meal - consider decreasing Lantus to 35 units BID to reduce risk of hypoglycemia, although, I would not expect hypoglycemia d/t Alc of 11.8% - follow up with outpatient PCP or Facilities Plant Engineer to titrate regimen * Please note that the plan above was derived based on current level of insulin resistance and hospital stress. These recommendations are appropriate for inpatient admission only. Plan of care upon discharge will need to be reassessed to avoid potential outpatient hypo/hyperglycemia. Thank you.
[2017-04-08] MEDS: POTASSIUM CHLORIDE 20 MEQ TABCR PO SCH ×4 (08:49→20:53)
[2017-04-08] MEDS: CETIRIZINE HCL 10 MG TAB PO SCH (08:49)
[2017-04-08] MEDS: DOXYCYCLINE HYCLATE 100 MG CAP PO SCH ×2 (08:50→20:54)
[2017-04-08] MEDS: VENLAFAXINE HCL XR 75 MG CAPXR PO SCH (08:50)
[2017-04-08] MEDS: GABAPENTIN 800 MG TAB PO SCH ×3 (08:50→20:56)
[2017-04-08] MEDS: AMLODIPINE BESYLATE 5 MG TAB PO SCH (08:50)
[2017-04-08] MEDS: FUROSEMIDE INJ 40 MG in SYRINGE 0 ML IV SCH (08:51)
[2017-04-08] MEDS: METOLAZONE 2.5 MG TAB PO SCH (08:52)
[2017-04-08] MEDS: CHOLECALCIFEROL 1000 INTER.UNIT TAB PO SCH (08:52)
[2017-04-08] MEDS: METOPROLOL TARTRATE 50 MG TAB PO SCH ×2 (08:53→20:57)
[2017-04-08] MEDS: MULTIVITAMIN TAB PO SCH (08:53)
[2017-04-08] MEDS: FLUTICASONE/SALMETEROL 250/50 (ADVAIR) 14 PUFF/1 INHALER INH SCH ×2 (08:54→20:55)
[2017-04-08] MEDS: NICOTINE 14 MG/24 HR TDSY TD SCH (08:54)
[2017-04-08] MEDS: METOCLOPRAMIDE HCL 5 MG TAB PO SCH ×4 (08:54→20:53)
[2017-04-08] MEDS: MUPIROCIN 2% OINT 22 GM TUBE TOP SCH ×2 (08:55→20:56)
[2017-04-08] MEDS: TIOTROPIUM BROMIDE 5 PUFF/90 MCG INH INH SCH (08:55)
[2017-04-08] MEDS ORDERED: INSULIN GLARGINE SOLOSTAR 100 UNITS/ML 3 ML PEN SC SCH ×2 (09:00→21:00)
[2017-04-08] MEDS: COLESTIPOL HCL 1 GM TAB PO SCH ×2 (10:50→21:05)
[2017-04-08] MEDS: OXYCODONE HCL IR 5 MG TAB (IMMEDIATE RELEASE) PO PRN ×2 (15:15→22:22)
[2017-04-08] MEDS: WARFARIN SOD 7.5 MG TAB PO SCH (16:10)
[2017-04-08] MEDS: FENTANYL PATCH REMOVE & WASTE SCH (18:05)
[2017-04-08] MEDS: FENTANYL 50 MCG/HR TDSY TD SCH (18:06)
--- NOTE | 2017-04-08 18:21 | Progress Note ---
Medicine Progress Note Date & Time of Visit: Apr 08, 2017 at 13:55. Subjective Patient is a 61-year-old female with multiple comorbidities presented to the hospital with acute shortness of breath -pt reports persistent coughing today as she has been over the past 3-4 weeks -cough is productive -she cites worsening BREAUX prior to arrival in that she couldn't easily transfer from her wheelchair to her commode without becoming acutely short of breath -however, today her BREAUX is much decreased and overall she is feeling that she can breathe easier -denies chest pain, fevers, or chills currently -at home she noted a 3 lb weight gain and some swelling in her ankles which has resolved since admission Objective Last 8 Hrs Date Time Temp Pulse Resp B/P (MAP) Pulse Ox O2 Delivery O2 Flow Rate FiO2 04/08/17 12:00 Nasal Cannula 2.0 04/08/17 11:22 69 18 91 Nasal Cannula 2.0 04/08/17 11:02 36.4 64 20 105/68 (80) 96 2.0 04/08/17 08:00 Nasal Cannula 2.0 04/08/17 08:00 36.3 97 18 168/95 (119) 91 2.0 04/08/17 07:40 73 16 92 Nasal Cannula 2.0 Physical Exam: GEN: WNWD, in no acute distress, alert and appropriate, pt was lying on her L side in bed and sleeping when I arrived. HEENT: NC/AT, pupils are equal and round bilaterally, normal sclerae, MMM CARDIO: reg rate, S1/2 heard without m/g/r LUNGS: +wheezing heard at bases bilaterally and coarse rhonchi heard on her L lung base, good diaphragmatic excursion ABD: soft, non-tender, non-distended, no rebound or guarding EXTREMITY: RP and DP palpable 2+ bilat, no LE swelling or edema, extremities are warm and well-perfused NEURO: CN 2-12 grossly intact MUSC: generalized weakness, no gross focal deficits. SKIN: warm and dry Laboratory Results: 04/07/17 05:46 04/08/17 06:14 Test 04/05/17 13:30 04/05/17 13:50 04/05/17 17:14 04/06/17 04:33 Immature Granulocyte % (Auto) 0.3 % White Blood Count 8.94 K/uL (4.8-10.8) Red Blood Count 4.40 M/uL (4.2-5.4) Hemoglobin 14.2 g/dL (12.0-16.0) Hematocrit 41.6 % (37-47) Mean Corpuscular Volume 94.5 fL (80-100) Mean Corpuscular Hemoglobin 32.3 pg (25-34) Mean Corpuscular Hemoglobin Concent 34.1 g/dl (32-36) Platelet Count 281 K/uL (130-400) Mean Platelet Volume 10.5 fL (7.4-10.4) Neutrophils (%) (Auto) 80.3 % Lymphocytes (%) (Auto) 13.5 % Monocytes (%) (Auto) 5.5 % Eosinophils (%) (Auto) 0.2 % Basophils (%) (Auto) 0.2 % Neutrophils # (Auto) 7.17 K/uL (1.4-6.5) Lymphocytes # (Auto) 1.21 K/uL (1.2-3.4) Monocytes # (Auto) 0.49 K/uL (0.11-0.59) Eosinophils # (Auto) 0.02 K/uL (0-0.5) Basophils # (Auto) 0.02 K/uL (0-0.2) Immature Granulocyte # (Auto) 0.03 K/uL (0.00-0.02) Activated Partial Thromboplast Time 49.5 SECONDS (21.0-31.0) Partial Thromboplastin Ratio 1.9 Total Bilirubin 0.3 mg/dl (0.2-1) Aspartate Amino Transf (AST/SGOT) 22 U/L (15-37) Alanine Aminotransferase (ALT/SGPT) 33 U/L (12-78) Alkaline Phosphatase 92 U/L (45-117) Pro-B-Type Natriuretic Peptide 1201 pg/ml (0-900) Total Protein 8.1 gm/dl (6.4-8.2) Albumin 3.2 gm/dl (3.4-5.0) Globulin 4.9 gm/dl (2.5-4.0) Albumin/Globulin Ratio 0.7 (0.9-2) Beta-Hydroxybutyric Acid 3.04 mg/dL (0.2-2.81) Arterial Blood pH 7.41 (7.35-7.45) Arterial Blood Partial Pressure CO2 54 mmHg (35-46) Arterial Blood Partial Pressure O2 57 mm/Hg (80-95) Arterial Blood HCO3 34 mmol/L (19-24) Arterial Blood Oxygen Saturation 87.8 % (90-95) Arterial Blood Base Excess 7.3 mEq/L (-9-1.8) Arterial Blood Gas Delivery 4L Alexandr Test POS (POS) Urine Color YELLOW Urine Appearance CLEAR (CLEAR) Urine pH 6.5 (4.5-7.5) Urine Specific [place] 1.018 (1.000-1.030) Urine Protein NEG (NEG) Urine Glucose (UA) 3+ (NEG) Urine Ketones NEG (NEG) Urine Occult Blood 1+ (NEG) Urine Nitrite NEG (NEG) Urine Bilirubin NEG (NEG) Urine Urobilinogen NEG (NEG) Urine Leukocyte Esterase NEG (NEG) Urine WBC (Auto) 1-5 /hpf (0-5) Urine RBC (Auto) 0-4 /hpf (0-4) Urine Hyaline Casts (Auto) 0 /lpf (0-5) Urine Epithelial Cells (Auto) 5-10 /lpf (0-5) Urine Bacteria (Auto) NEG (NEG) Estimated Average Glucose 292 mg/dl Hemoglobin A1c 11.8 % (4.5-5.6) Test 04/07/17 05:46 04/07/17 10:44 04/08/17 06:14 04/08/17 16:17 Red Blood Count 4.47 M/uL (4.2-5.4) Mean Corpuscular Volume 93.3 fL (80-100) Mean Corpuscular Hemoglobin 31.1 pg (25-34) Mean Corpuscular Hemoglobin Concent 33.3 g/dl (32-36) RDW Standard Deviation 43.2 fL (36.4-46.3) RDW Coefficient of Variation 12.6 % (11.5-14.5) Mean Platelet Volume 10.2 fL (7.4-10.4) Troponin I < 0.015 ng/ml (0-0.045) Prothrombin Time 16.8 SECONDS (9.0-12.0) Prothromb Time International Ratio 1.5 (0.9-1.1) Anion Gap 6.0 mmol/L (3-11) Est Creatinine Clear Calc Drug Dose 44.6 ml/min Estimated GFR () 47.2 Estimated GFR (Non- 40.7 BUN/Creatinine Ratio 30.4 (10-20) Calcium Level 9.5 mg/dl (8.5-10.1) Bedside Glucose 268 mg/dl (70-90) Date/Time Source Procedure Growth Status 04/07/17 14:15 Nasal MRSA DNA Surveillance Screen - Final Specimen Negative for MRSA by DNA Probe Complete Last 24 Hours Test 04/07/17 14:14 04/07/17 16:11 04/07/17 20:26 04/07/17 23:42 Bedside Glucose 185 mg/dl 120 mg/dl 220 mg/dl 373 mg/dl Test 04/08/17 04:01 04/08/17 06:14 04/08/17 06:56 04/08/17 11:19 Bedside Glucose 187 mg/dl 143 mg/dl 217 mg/dl Prothrombin Time 16.8 SECONDS Prothromb Time International Ratio 1.5 Sodium Level 132 mmol/L Potassium Level 3.0 mmol/L Chloride Level 89 mmol/L Carbon Dioxide Level 37 mmol/L Anion Gap 6.0 mmol/L Blood Urea Nitrogen 43 mg/dl Creatinine 1.40 mg/dl Est Creatinine Clear Calc Drug Dose 44.6 ml/min Estimated GFR () 47.2 Estimated GFR (Non- 40.7 BUN/Creatinine Ratio 30.4 Random Glucose 155 mg/dl Calcium Level 9.5 mg/dl Date/Time Source Procedure Growth Status 04/07/17 14:15 Nasal MRSA DNA Surveillance Screen - Final Specimen Negative for MRSA by DNA Probe Complete Assessment & Plan Patient is a 61-year-old female with multiple comorbidities presented to the hospital with acute shortness of breath 1. ACUTE ON CHRONIC SOB :In setting of CHRONIC HYPOXIC RESPIRATORY FAILURE, COPD, MODERATE PULMONARY HYPERTENSION, HX OF NON COMPLIANCE WITH OXYGEN, ACTIVE SMOKING: Likely acute component is multifactorial: COPD exacerbation, acute CHF exacerbation. Oxygen down to 2 L (at home 3 L). Lasix was changed to PO per home regimen (40mg BID). With some wheezing still on exam, cont Nebs, prednisone and doxycycline. CXR- no pneumonia; ABGs reviewed- no CO2 retention 2. CHF EXACERBATION, DIASTOLIC WITH PRESERVED EF: CXR - pulmonary congestion, elevated BNP to 1200 (poss 2/2 pulm HTN), LE swelling noted by patient--all improved after three days of diuresis. Clinically improved overall with weight down and net negative 9 L down since admission. PO Lasix as above. Serial cardiac enzymes are negative and repeat TTE reveals normal LV and RV systolic function with h/o mitral valve repair and restricted posterior leaflet excursion 3. COPD EXACERBATION: some wheezing still present. Cont Nebs, prednisone and doxy. Cont supplemental oxygen to maintain saturation 88-92% 4. HX OF ATRIAL FIBRILLATION/ MITRAL VALVE REPAIR--NSR: On Metoprolol 75 mg PO BID, Coumadin. INR subtherapeutic, restarted coumadin today. Daily INR 5. DEPRESSION/BIPOLAR DISORDER: Stable. Continue with home medications 6. DM-2: ISS, Accuchecks. Monitor while on steroids. Pt requiring higher Lantus and tighter control-pharmacist adjusted medications to reflect this- appreciate recs. Will need to add some bolus insulin to outpatient Glargine regimen on discharge. 7. HTN-controlled. Continue with home medications 8. HYPOTHYROIDISM: On levothyroxine, TSH normal. Cont current dose. 9. DARIUS on CPAP 10. GERD: protonix 11. TOBACCO ABUSE DISORDER: Cessation advised. 12. Hypokalemia-likely 2/2 Lasix use. Will also check Mg with next blood draw and replace as needed. 13. Hyponatremia-monitor on Lasix 14. CKD, Stage III: mild ЮЛИЯ appears present, likely 2/2 recent IV diuretic use and significant diuresis. Changed Lasix to PO. Follow PRP in am. DVT PROPHYLAXIS: Coumadin FULL CODE DISPOSITION: Poss to home in 1-2 days. Ordered PT/OT to evaluate and recommend dispo based on safety Ashleigh Humphrey DO [facility] Hospitalist Current Inpatient Medications: Current Inpatient Medications Medications (Trade) Dose Ordered Sig/Artemio Route Start Time Stop Time Status Last Admin Dose Admin Acetaminophen (Tylenol Tab) 650 mg Q4H PRN PO 04/05/17 15:15 05/05/17 15:14 Ondansetron HCl (Zofran Inj) 4 mg Q6H PRN IV 04/05/17 15:15 05/05/17 15:14 Nitroglycerin (Nitrostat Tab) 0.4 mg UD PRN SL 04/05/17 15:15 05/05/17 15:14 Amitriptyline HCl (Elavil Tab) 50 mg HS PO 04/05/17 21:00 05/05/17 20:59 04/07/17 20:42 50 MG Atorvastatin Calcium (Lipitor Tab) 40 mg HS PO 04/05/17 21:00 05/05/17 20:59 04/07/17 20:42 40 MG Cetirizine HCl (zyrTEC TAB) 10 mg QAM PO 04/06/17 09:00 05/06/17 08:59 04/08/17 08:49 10 MG Cholecalciferol (Vitamin D Tab) 1,000 inter.unit DAILY PO 04/06/17 09:00 05/06/17 08:59 04/08/17 08:52 1,000 INTER.UNIT Colestipol HCl (Colestid Tab) 1 gm BID@1000,2200 PO 04/05/17 22:00 05/05/17 21:59 04/08/17 10:50 1 GM Diphenoxylate HCl/ Atropine (Lomotil Tab) 1 tab PRN PRN PO 04/05/17 15:15 05/05/17 15:14 Fentanyl (Duragesic Patch) 50 mcg Q3D@1800 TD 04/05/17 18:00 04/19/17 17:59 04/05/17 18:19 50 MCG Salmeterol Xinafoate/ Fluticasone (Advair Diskus 250/50 Inh) 1 puff BID INH 04/05/17 21:00 05/05/17 20:59 04/08/17 08:54 1 PUFF Gabapentin (Neurontin Tab) 800 mg TID PO 04/05/17 21:00 05/05/17 20:59 04/08/17 08:50 800 MG Levothyroxine Sodium (Synthroid Tab) 50 mcg DAILYBB PO 04/06/17 06:00 05/06/17 05:59 04/08/17 06:08 50 MCG Loperamide HCl (Imodium Cap) 2 mg BID PRN PO 04/05/17 15:15 05/05/17 15:14 Lorazepam (Ativan Tab) 0.5 mg HS PRN PO 04/05/17 15:15 05/05/17 15:14 04/08/17 00:44 0.5 MG Methocarbamol (Robaxin Tab) 500 mg TID PRN PO 04/05/17 15:15 05/05/17 15:14 Metoclopramide HCl (Reglan Tab) 5 mg ACHS PO 04/05/17 16:00 05/05/17 15:59 04/08/17 10:51 5 MG Metolazone (Zaroxolyn Tab) 2.5 mg DAILY PO 04/06/17 09:00 05/06/17 08:59 04/08/17 08:52 2.5 MG Metoprolol Tartrate (Lopressor Tab) 75 mg BID PO 04/05/17 21:00 05/05/17 20:59 04/08/17 08:53 75 MG Multivitamins (Multivitamin Tab) 1 tab QAM PO 04/06/17 09:00 05/06/17 08:59 04/08/17 08:53 1 TAB Mupirocin (Bactroban 2% Oint) 1 appln BID TOP 04/05/17 21:00 05/05/17 20:59 04/08/17 08:55 1 APPLN Olanzapine (Zyprexa Tab) 2.5 mg HS PO 04/05/17 21:00 05/05/17 20:59 04/07/17 20:42 2.5 MG Pantoprazole Sodium (Protonix Tab) 40 mg HS PO 04/05/17 21:00 05/05/17 20:59 04/07/17 20:42 40 MG Potassium Chloride (Klor-Con Tab) 20 meq BID PO 04/05/17 21:00 05/05/17 20:59 04/08/17 10:51 20 MEQ Tiotropium [place] (Spiriva Handihaler Inhaler) 1 puff DAILY INH 04/06/17 09:00 05/06/17 08:59 04/08/17 08:55 1 PUFF Venlafaxine HCl (effeXOR EXTENDED REL CAP) 225 mg QAM PO 04/06/17 09:00 05/06/17 08:59 04/08/17 08:50 225 MG Warfarin Sodium (Coumadin Tab) 5 mg SuTh@1600 PO 04/06/17 16:00 05/06/17 15:59 Future hold Warfarin Sodium (Coumadin Tab) 7.5 mg MoTuWeFrSa@1600 PO 04/07/17 16:00 05/07/17 15:59 Future hold Amlodipine Besylate (Norvasc Tab) 10 mg QAM PO 04/06/17 09:00 05/06/17 08:59 04/08/17 08:50 10 MG Hydroxyzine HCl (Vistaril Tab) 25 mg Q6H PRN PO 04/05/17 17:30 05/05/17 17:29 Ranitidine HCl (zANTac TAB) 300 mg HS PO 04/05/17 21:00 05/05/17 20:59 04/07/17 20:41 300 MG Trazodone HCl (Desyrel Tab) 300 mg HS PO 04/05/17 21:00 05/05/17 20:59 04/07/17 20:42 300 MG Miscellaneous Information (Consult Glycemic Management Pharmacy) 1 ea UD PRN N/A 04/05/17 15:46 05/05/17 15:45 Furosemide 40 mg/ Syringe 4 ml @ 4 mls/min BID IV 04/06/17 09:00 05/06/17 08:59 04/08/17 08:51 4 MLS/MIN Nicotine (Nicoderm Cq 14MG Patch) 1 patch QAM TD 04/06/17 09:00 05/06/17 08:59 04/08/17 08:54 1 PATCH Miscellaneous (Remove Nicoderm Patch) 1 ea HS N/A 04/05/17 21:00 05/05/17 20:59 04/07/17 20:43 1 EA Oxycodone HCl (Roxicodone Immediate Rel Tab) 5 mg Q6H PRN PO 04/05/17 16:15 04/19/17 16:14 04/07/17 16:37 5 MG Miscellaneous (Fentanyl Patch Remove & Waste) 1 ea Q3D@1759 N/A 04/05/17 17:59 05/05/17 17:58 04/05/17 18:18 1 EA Miscellaneous Information (Check Fentanyl Patch Placement) 1 ea QS N/A 04/06/17 00:00 05/06/17 00:00 04/08/17 08:55 1 EA Albuterol/ Ipratropium (Duoneb) 3 ml QIDR INH 04/06/17 08:00 05/06/17 07:59 04/08/17 11:22 3 ML Albuterol/ Ipratropium (Duoneb) 3 ml Q2H PRN INH 04/06/17 04:15 05/06/17 04:14 Insulin Aspart (novoLOG ASPART) SLIDING SCALE G... ACHS CA 04/06/17 11:00 05/05/17 17:59 04/08/17 11:55 11 UNITS Prednisone (PredniSONE TAB) 40 mg DAILY PO 04/07/17 09:00 05/07/17 08:59 04/08/17 08:53 40 MG Insulin Glargine (Lantus Solostar Pen) 25 units BID SC 04/07/17 09:00 05/07/17 08:59 Future hold 04/07/17 20:47 25 UNITS Doxycycline Hyclate (Vibramycin Cap) 100 mg BID PO 04/07/17 21:00 04/14/17 20:59 04/08/17 08:50 100 MG Potassium Chloride (Klor-Con Tab) 40 meq Q6H PO 04/08/17 08:15 04/08/17 14:16 04/08/17 08:49 40 MEQ Insulin Aspart (novoLOG ASPART) SLIDING SCALE G... 0000,0400 CA 04/09/17 00:00 04/09/17 04:01 Insulin Glargine (Lantus Solostar Pen) SEE PROTOCOL TEXT BID SC 04/08/17 21:00 05/08/17 20:59
[2017-04-08] MEDS ORDERED: INSULIN HUMAN REGULAR PER UNIT 5 UNITS in SYRINGE 4.95 ML IV SCH (20:45)
[2017-04-08] MEDS: PANTOprazole SOD 40 MG TAB PO SCH (20:53)
[2017-04-08] MEDS: OLANZAPINE 2.5 MG TAB PO SCH (20:53)
[2017-04-08] MEDS: FUROSEMIDE 40 MG TAB PO SCH (20:53)
[2017-04-08] MEDS: TRAZODONE HCL 100 MG TAB PO SCH (20:54)
[2017-04-08] MEDS: RANITIDINE HCL 150 MG TAB PO SCH (20:54)
[2017-04-08] MEDS: ATORVASTATIN 40 MG TAB PO SCH (20:55)
[2017-04-08] MEDS: AMITRIPTYLINE HCL 50 MG TAB PO SCH (20:55)
[2017-04-09] VITALS (11 sets, daily range): BP systolic 104–128; BP diastolic 55–81; PULSE 55–94; TEMP 36.3–36.8; O2SAT 93–95; Ht 162.6 cm; Wt 83.9 kg
[2017-04-09] MEDS: INSULIN ASPART 100 UNITS/ML 3 ML PEN SC SCH ×6 (00:22→21:31)
[2017-04-09] MEDS: LEVOTHYROXINE 50 MCG TAB PO SCH (06:19)
[2017-04-09 07:13] LABS: HEMATOCRIT 40.3 % (37-47); MEAN CORPUSCULAR HEMOGLOBIN 31.4 pg (25-34); MEAN CORPUSCULAR HGB CONC 34.5 g/dl (32-36); PLATELET COUNT 317 K/uL (130-400); RED BLOOD COUNT 4.43 M/uL (4.2-5.4); WHITE BLOOD COUNT 10.18 K/uL (4.8-10.8)
[2017-04-09 07:20] LABS: INR 1.4 (0.9-1.1); PROTHROMBIN TIME (PATIENT) 15.3 SECONDS (9.0-12.0)
[2017-04-09] MEDS: METOCLOPRAMIDE HCL 5 MG TAB PO SCH ×4 (07:29→21:20)
[2017-04-09] MEDS: INSULIN GLARGINE SOLOSTAR 100 UNITS/ML 3 ML PEN SC SCH ×2 (07:34→21:32)
[2017-04-09] MEDS: FLUTICASONE/SALMETEROL 250/50 (ADVAIR) 14 PUFF/1 INHALER INH SCH ×2 (07:35→21:20)
[2017-04-09] MEDS: TIOTROPIUM BROMIDE 5 PUFF/90 MCG INH INH SCH (07:36)
[2017-04-09] MEDS: CHECK FENTANYL PATCH PLACEMENT SCH ×2 (07:37→16:00)
[2017-04-09] MEDS: DOXYCYCLINE HYCLATE 100 MG CAP PO SCH ×2 (07:38→21:21)
[2017-04-09] MEDS: AMLODIPINE BESYLATE 5 MG TAB PO SCH (07:38)
[2017-04-09] MEDS: CETIRIZINE HCL 10 MG TAB PO SCH (07:38)
[2017-04-09] MEDS: CHOLECALCIFEROL 1000 INTER.UNIT TAB PO SCH (07:38)
[2017-04-09] MEDS: METOLAZONE 2.5 MG TAB PO SCH (07:39)
[2017-04-09] MEDS: GABAPENTIN 800 MG TAB PO SCH ×3 (07:39→21:19)
[2017-04-09] MEDS: MULTIVITAMIN TAB PO SCH (07:39)
[2017-04-09] MEDS: METOPROLOL TARTRATE 50 MG TAB PO SCH ×2 (07:40→21:19)
[2017-04-09] MEDS: VENLAFAXINE HCL XR 75 MG CAPXR PO SCH (07:41)
[2017-04-09] MEDS: FUROSEMIDE 40 MG TAB PO SCH ×2 (07:42→21:23)
[2017-04-09] MEDS: POTASSIUM CHLORIDE 20 MEQ TABCR PO SCH ×2 (07:42→21:23)
[2017-04-09] MEDS: NICOTINE 14 MG/24 HR TDSY TD SCH (07:43)
[2017-04-09] MEDS: MUPIROCIN 2% OINT 22 GM TUBE TOP SCH ×2 (07:46→21:00)
[2017-04-09] MEDS: ALBUT/IPRATROP 3MG/0.5MG NEB 3 ML VIAL INH SCH ×4 (07:51→19:37)
[2017-04-09 07:55] LABS: BUN/CREATININE RATIO 39.6 (10-20); CREATININE 1.4 mg/dl (0.60-1.20); MAGNESIUM 2.1 mg/dl (1.8-2.4); POTASSIUM 3.2 mmol/L (3.5-5.1)
[2017-04-09] MEDS ORDERED: POTASSIUM CHLORIDE INJ 40 MEQ in SODIUM CHLORIDE 0.9% 500ML 500 ML IV SCH (08:45)
[2017-04-09] MEDS ORDERED: ENOXAPARIN 40 MG/0.4 ML SYR SQ ONE (08:45)
[2017-04-09] MEDS ORDERED: POTASSIUM CHLORIDE 20 MEQ TABCR PO STA (08:49)
--- NOTE | 2017-04-09 09:45 | Pharmacy Progress Note ---
Glycemic Control Progress Note Date of Service Apr 09, 2017. Scope Glycemic Pharmacist consulted for glycemic control to write orders per [facility] ED inpatient glycemic control protocol. Objective Accuchecks BSG (last 24hrs): Test 04/08/17 11:19 04/08/17 16:17 04/08/17 20:37 04/08/17 23:56 Bedside Glucose 217 mg/dl (70-90) 268 mg/dl (70-90) 352 mg/dl (70-90) 152 mg/dl (70-90) Test 04/09/17 03:49 04/09/17 06:23 04/09/17 06:56 Bedside Glucose 174 mg/dl (70-90) 234 mg/dl (70-90) Random Glucose 216 mg/dl (70-99) HbA1c: Test 04/06/17 04:33 Hemoglobin A1c 11.8 % (4.5-5.6) H Recent Pertinent Medications The patient is currently receiving: * Basal insulin: Lantus 30 units every 12 hours * Correctional Insulin: Novolog Correction per scale ACHS Goal Range: Low 120 mg/dL - High 160 mg/dL Correction Factor: 15 mg/dL/unit * Prandial insulin: Per carb ratio of 1 unit per 4 grams CHO consumed Outpatient Anti-Diabetic Meds Basal Insulin monotherapy Assessment & Plan ASSESSMENT: * T2DM female well known to the pharmacy glycemic service from previous admissions/consults * Pt receiving SQ basal bolus insulin regimen for hyperglycemia secondary to baseline DM (outpatient regimen was decreased on admission for fear that basal insulin dosing was covering some prandial needs),stress/infection, & steroids * Patient is currently receiving an average of 137 units of insulin per day * 60 units of basal insulin * 77 units of prandial/correctional insulin * BSGs ranging 143 - 352 mg/dl over the past 24hrs * Changes needed to insulin regimen: * AM Fasting BSG = 234 mg/dl. This is slightly above goal range for patient based on inpatient targets and co-morbidities. Therefore Basal insulin needs increased. Outpatient dosing of basal insulin is likely her basal needs as she used to take NovoLog in addition to this. Glycemic control as deteriorated since stopping NovoLog. * Post-prandial BSGs are elevated/BSGs rise throughout the day therefore need to tighten CF/CR. Steroids have their most profound effect on post-prandial hyperglycemia and aggressive CF/CR warranted. * Total daily dose = 137 units. Increase in total daily dose is needed PLAN FOR INPATIENT GLYCEMIC CONTROL: Increase/tighten regimen based on an estimated total daily dose of ~ 150 units/day * Basal insulin: Increase dosing to outpatient dosing * Lantus 40 units SQ BID * Bolus insulin: Tighten parameters * NovoLog per scale ACHS or Q6hrs while NPO * Goal Range: Low 120 mg/dL - High 140 mg/dL * Correction Factor: 10 mg/dL/unit * Nutritional / Prandial insulin per carb ratio of 1 unit per 3 grams CHO consumed RECOMMENDATIONS FOR DISCHARGE: * Pt with poor outpatient control secondary to stopping prandial/meal time insulin coverage last summer due to frequent lows (may have been too aggressive of coverage and just needed parameters adjusted). Pt is only taking her basal insulin. * A1c increased 3% since stopping prandial insulin (8.1% {05/26/16} --> 11.8% {}) * Home insulin regimen is 100% basal. To improve glycemic control, meal coverage with rapid acting insulin or an alternative anti-diabetic agent is needed. * Options 1. Add GLP-1 to current regimen {preferred choice} * Pharmacy has co-pay cards ($0 co-pay x 12 months) for basal insulin/GLP1-RA combo Soliqua (insulin glargine/lixisenatide) * Pt could use Soliqua 30 units daily in morning prior to breakfast and titrate by 2-4 units weekly until goal FPG is achieved. * Nausea is transient with GLP-1 RA's, typically peaks within 8 weeks of starting therapy and resolves with 28 weeks * If pt experiences severe nausea recommend lowering dose of Soliqua to 15 units daily in AM prior to breakfast and then continuing to titrate upwards * The LEADER trial has shown CV benefits with GLP1-Myron however, caution is needed with GLP1-RA with CHF NYHA classes III & IV * Changing to Soliqua would decrease injections from 2x/day (currently) to just once daily. 2. Add meal coverage with Novolog * Pt has experience hypo with NovoLog in the past and since d/c'ed it on her own * CHO counting and personalized CF/CR scale would be best to help prevent hypo * Fixed dosing is easier for patients but often times can lead to hypo or re- bound hyperglycemia. 3. Could consider Alpha-glucosidase Inhibitor. * Acarbose 25mg PO three times daily taken with the first bite of each meal PROS: * Little risk of hypoglycemia - only works on post-prandial hyperglycemia. * Delays the absorption of CHO from intestinal tract which reduces the rise in post-prandial BSGs (not systemically absorbed) * Neutral weight gain * Relatively cheap CONS: * Only very modest effect on A1c (dec 0.4-0.7%) --> will not get patient to goal A1c * Significant GI effects (diarrhea, gas, abdominal pain) * Must be taken with the first bite of each meal (do not take if no meal is consumed) * Please note that the plan above was derived based on current level of insulin resistance and hospital stress. These recommendations are appropriate for inpatient admission only. Plan of care upon discharge will need to be reassessed to avoid potential outpatient hypo/hyperglycemia. Thank you.
[2017-04-09] MEDS: COLESTIPOL HCL 1 GM TAB PO SCH ×2 (09:50→21:18)
[2017-04-09] MEDS: WARFARIN SOD 7.5 MG TAB PO SCH (16:56)
[2017-04-09] MEDS: LORAZEPAM 0.5 MG TAB PO PRN (21:18)
[2017-04-09] MEDS: ATORVASTATIN 40 MG TAB PO SCH (21:21)
[2017-04-09] MEDS: PANTOprazole SOD 40 MG TAB PO SCH (21:21)
[2017-04-09] MEDS: AMITRIPTYLINE HCL 50 MG TAB PO SCH (21:21)
[2017-04-09] MEDS: TRAZODONE HCL 100 MG TAB PO SCH (21:22)
[2017-04-09] MEDS: RANITIDINE HCL 150 MG TAB PO SCH (21:22)
[2017-04-09] MEDS: OLANZAPINE 2.5 MG TAB PO SCH (21:22)
[2017-04-09] MEDS: OXYCODONE HCL IR 5 MG TAB (IMMEDIATE RELEASE) PO PRN (21:28)
--- NOTE | 2017-04-09 22:22 | Progress Note ---
Medicine Progress Note Date & Time of Visit: Apr 09, 2017 at 17:30. Subjective Patient is a 61-year-old female with multiple comorbidities presented to the hospital with acute shortness of breath -feels much improved today -uses less chronic oxygen than at home by 1L -ambulating without issue-back to baseline -denies CP, SOB, swelling Objective Last 8 Hrs Date Time Temp Pulse Resp B/P (MAP) Pulse Ox O2 Delivery O2 Flow Rate FiO2 04/09/17 14:57 36.5 77 22 117/71 (86) 94 Nasal Cannula 2.0 04/09/17 12:00 Nasal Cannula 2.0 04/09/17 11:16 86 16 95 Nasal Cannula 2.0 04/09/17 11:00 36.8 55 18 106/74 (85) 94 2.0 04/09/17 10:03 93 Physical Exam: GEN: WNWD, in no acute distress, alert and appropriate, well-appearing HEENT: NC/AT, pupils are equal and round bilaterally, normal sclerae, MMM CARDIO: reg rate, S1/2 heard without m/g/r LUNGS: + expiratory wheezing heard at R base, good diaphragmatic excursion, overall improved. ABD: soft, non-tender, non-distended, no rebound or guarding, +BS EXTREMITY: RP and DP palpable 2+ bilat, no LE swelling or edema, extremities are warm and well-perfused NEURO: CN 2-12 grossly intact MUSC: generalized weakness, no gross focal deficits. SKIN: warm and dry Laboratory Results: 04/09/17 06:56 04/09/17 06:56 Test 04/05/17 13:30 04/05/17 13:50 04/05/17 17:14 04/06/17 04:33 Immature Granulocyte % (Auto) 0.3 % White Blood Count 8.94 K/uL (4.8-10.8) Red Blood Count 4.40 M/uL (4.2-5.4) Hemoglobin 14.2 g/dL (12.0-16.0) Hematocrit 41.6 % (37-47) Mean Corpuscular Volume 94.5 fL (80-100) Mean Corpuscular Hemoglobin 32.3 pg (25-34) Mean Corpuscular Hemoglobin Concent 34.1 g/dl (32-36) Platelet Count 281 K/uL (130-400) Mean Platelet Volume 10.5 fL (7.4-10.4) Neutrophils (%) (Auto) 80.3 % Lymphocytes (%) (Auto) 13.5 % Monocytes (%) (Auto) 5.5 % Eosinophils (%) (Auto) 0.2 % Basophils (%) (Auto) 0.2 % Neutrophils # (Auto) 7.17 K/uL (1.4-6.5) Lymphocytes # (Auto) 1.21 K/uL (1.2-3.4) Monocytes # (Auto) 0.49 K/uL (0.11-0.59) Eosinophils # (Auto) 0.02 K/uL (0-0.5) Basophils # (Auto) 0.02 K/uL (0-0.2) Immature Granulocyte # (Auto) 0.03 K/uL (0.00-0.02) Activated Partial Thromboplast Time 49.5 SECONDS (21.0-31.0) Partial Thromboplastin Ratio 1.9 Total Bilirubin 0.3 mg/dl (0.2-1) Aspartate Amino Transf (AST/SGOT) 22 U/L (15-37) Alanine Aminotransferase (ALT/SGPT) 33 U/L (12-78) Alkaline Phosphatase 92 U/L (45-117) Pro-B-Type Natriuretic Peptide 1201 pg/ml (0-900) Total Protein 8.1 gm/dl (6.4-8.2) Albumin 3.2 gm/dl (3.4-5.0) Globulin 4.9 gm/dl (2.5-4.0) Albumin/Globulin Ratio 0.7 (0.9-2) Beta-Hydroxybutyric Acid 3.04 mg/dL (0.2-2.81) Arterial Blood pH 7.41 (7.35-7.45) Arterial Blood Partial Pressure CO2 54 mmHg (35-46) Arterial Blood Partial Pressure O2 57 mm/Hg (80-95) Arterial Blood HCO3 34 mmol/L (19-24) Arterial Blood Oxygen Saturation 87.8 % (90-95) Arterial Blood Base Excess 7.3 mEq/L (-9-1.8) Arterial Blood Gas Delivery 4L Alexandr Test POS (POS) Urine Color YELLOW Urine Appearance CLEAR (CLEAR) Urine pH 6.5 (4.5-7.5) Urine Specific Horatio 1.018 (1.000-1.030) Urine Protein NEG (NEG) Urine Glucose (UA) 3+ (NEG) Urine Ketones NEG (NEG) Urine Occult Blood 1+ (NEG) Urine Nitrite NEG (NEG) Urine Bilirubin NEG (NEG) Urine Urobilinogen NEG (NEG) Urine Leukocyte Esterase NEG (NEG) Urine WBC (Auto) 1-5 /hpf (0-5) Urine RBC (Auto) 0-4 /hpf (0-4) Urine Hyaline Casts (Auto) 0 /lpf (0-5) Urine Epithelial Cells (Auto) 5-10 /lpf (0-5) Urine Bacteria (Auto) NEG (NEG) Estimated Average Glucose 292 mg/dl Hemoglobin A1c 11.8 % (4.5-5.6) Test 04/07/17 10:44 04/09/17 06:56 04/09/17 19:58 Troponin I < 0.015 ng/ml (0-0.045) Red Blood Count 4.43 M/uL (4.2-5.4) Mean Corpuscular Volume 91.0 fL (80-100) Mean Corpuscular Hemoglobin 31.4 pg (25-34) Mean Corpuscular Hemoglobin Concent 34.5 g/dl (32-36) RDW Standard Deviation 41.3 fL (36.4-46.3) RDW Coefficient of Variation 12.4 % (11.5-14.5) Mean Platelet Volume 10.0 fL (7.4-10.4) Prothrombin Time 15.3 SECONDS (9.0-12.0) Prothromb Time International Ratio 1.4 (0.9-1.1) Anion Gap 7.0 mmol/L (3-11) Est Creatinine Clear Calc Drug Dose 45.0 ml/min Estimated GFR () 47.2 Estimated GFR (Non- 40.7 BUN/Creatinine Ratio 39.6 (10-20) Calcium Level 9.0 mg/dl (8.5-10.1) Magnesium Level 2.1 mg/dl (1.8-2.4) Bedside Glucose 198 mg/dl (70-90) Date/Time Source Procedure Growth Status 04/07/17 14:15 Nasal MRSA DNA Surveillance Screen - Final Specimen Negative for MRSA by DNA Probe Complete Last 24 Hours Test 04/08/17 20:15 04/08/17 20:37 04/08/17 23:56 04/09/17 03:49 Bedside Glucose 401 mg/dl 352 mg/dl 152 mg/dl 174 mg/dl Test 04/09/17 06:23 04/09/17 06:56 04/09/17 11:17 04/09/17 16:36 Bedside Glucose 234 mg/dl 251 mg/dl 177 mg/dl White Blood Count 10.18 K/uL Red Blood Count 4.43 M/uL Hemoglobin 13.9 g/dL Hematocrit 40.3 % Mean Corpuscular Volume 91.0 fL Mean Corpuscular Hemoglobin 31.4 pg Mean Corpuscular Hemoglobin Concent 34.5 g/dl RDW Standard Deviation 41.3 fL RDW Coefficient of Variation 12.4 % Platelet Count 317 K/uL Mean Platelet Volume 10.0 fL Prothrombin Time 15.3 SECONDS Prothromb Time International Ratio 1.4 Sodium Level 134 mmol/L Potassium Level 3.2 mmol/L Chloride Level 92 mmol/L Carbon Dioxide Level 35 mmol/L Anion Gap 7.0 mmol/L Blood Urea Nitrogen 55 mg/dl Creatinine 1.40 mg/dl Est Creatinine Clear Calc Drug Dose 45.0 ml/min Estimated GFR () 47.2 Estimated GFR (Non- 40.7 BUN/Creatinine Ratio 39.6 Random Glucose 216 mg/dl Calcium Level 9.0 mg/dl Magnesium Level 2.1 mg/dl Assessment & Plan Patient is a 61-year-old female with multiple comorbidities presented to the hospital with acute shortness of breath 1. ACUTE ON CHRONIC SOB :In setting of CHRONIC HYPOXIC RESPIRATORY FAILURE, COPD, MODERATE PULMONARY HYPERTENSION, HX OF NON COMPLIANCE WITH OXYGEN, ACTIVE SMOKING: Likely acute component is multifactorial: COPD exacerbation, acute diastolic CHF exacerbation. Oxygen down to 2 L (at home 3 L). Lasix was changed to PO per home regimen (40mg BID). With some wheezing still on exam, cont Nebs, prednisone and doxycycline. CXR- no pneumonia; ABGs reviewed- no CO2 retention 2. CHF EXACERBATION, DIASTOLIC WITH PRESERVED EF: CXR - pulmonary congestion, elevated BNP to 1200 (poss 2/2 pulm HTN), LE swelling noted by patient--all improved after three days of diuresis. Clinically improved overall with weight down and net negative approx 10L down since admission. PO Lasix as above. Serial cardiac enzymes are negative and repeat TTE reveals normal LV and RV systolic function with h/o mitral valve repair and restricted posterior leaflet excursion. Pt is compensated at this point and feeling well. Likely dc to home in am. 3. COPD EXACERBATION: some wheezing still present. Cont Nebs, prednisone and doxy. Cont supplemental oxygen to maintain saturation 88-92% 4. HX OF ATRIAL FIBRILLATION/ MITRAL VALVE REPAIR--NSR: On Metoprolol 75 mg PO BID, Coumadin. INR subtherapeutic, cont coumadin at current dose and increase dose if no INR dose tomorrow. 5. DEPRESSION/BIPOLAR DISORDER: Stable. Continue with home medications 6. DM-2: ISS, Accuchecks. Monitor while on steroids. Pt requiring higher Lantus and tighter control-pharmacist adjusted medications to reflect this- appreciate recs. Discussed the use of prandial insulin as outpatient going home with A1C>11. Pt states that with even Novolog 1 Unit, she suffered hypoglycemic episodes. Will not send home on long-term steroids and, therefore , sugars are likely to drop. Will cont Lantus and make strong recommendation for her to see Endo as outpatient. 7. HTN-controlled. Continue with home medications 8. HYPOTHYROIDISM: On levothyroxine, TSH normal. Cont current dose. 9. DARIUS on CPAP 10. GERD: protonix 11. TOBACCO ABUSE DISORDER: Cessation advised. 12. Hypokalemia-likely 2/2 Lasix use. Replaced, recheck in am. 13. Hyponatremia-monitor on Lasix-within normal limits today. 14. CKD, Stage III: mild ЮЛИЯ appears present, likely 2/2 recent IV diuretic use and significant diuresis. Changed Lasix to PO but still with significant diuresis. decrease Lasix by 50%. Follow PRP in am. DVT PROPHYLAXIS: Coumadin FULL CODE DISPOSITION: Poss to home in 1-2 days. PT cleared to return home. Ashleigh Humphrey DO [facility] Hospitalist Current Inpatient Medications: Current Inpatient Medications Medications (Trade) Dose Ordered Sig/Artemio Route Start Time Stop Time Status Last Admin Dose Admin Acetaminophen (Tylenol Tab) 650 mg Q4H PRN PO 04/05/17 15:15 05/05/17 15:14 Ondansetron HCl (Zofran Inj) 4 mg Q6H PRN IV 04/05/17 15:15 05/05/17 15:14 Nitroglycerin (Nitrostat Tab) 0.4 mg UD PRN SL 04/05/17 15:15 05/05/17 15:14 Amitriptyline HCl (Elavil Tab) 50 mg HS PO 04/05/17 21:00 05/05/17 20:59 04/08/17 20:55 50 MG Atorvastatin Calcium (Lipitor Tab) 40 mg HS PO 04/05/17 21:00 05/05/17 20:59 04/08/17 20:55 40 MG Cetirizine HCl (zyrTEC TAB) 10 mg QAM PO 04/06/17 09:00 05/06/17 08:59 04/09/17 07:38 10 MG Cholecalciferol (Vitamin D Tab) 1,000 inter.unit DAILY PO 04/06/17 09:00 05/06/17 08:59 04/09/17 07:38 1,000 INTER.UNIT Colestipol HCl (Colestid Tab) 1 gm BID@1000,2200 PO 04/05/17 22:00 05/05/17 21:59 04/09/17 09:50 1 GM Diphenoxylate HCl/ Atropine (Lomotil Tab) 1 tab PRN PRN PO 04/05/17 15:15 05/05/17 15:14 Fentanyl (Duragesic Patch) 50 mcg Q3D@1800 TD 04/05/17 18:00 04/19/17 17:59 04/08/17 18:06 50 MCG Salmeterol Xinafoate/ Fluticasone (Advair Diskus 250/50 Inh) 1 puff BID INH 04/05/17 21:00 05/05/17 20:59 04/09/17 07:35 1 PUFF Gabapentin (Neurontin Tab) 800 mg TID PO 04/05/17 21:00 05/05/17 20:59 04/09/17 14:22 800 MG Levothyroxine Sodium (Synthroid Tab) 50 mcg DAILYBB PO 04/06/17 06:00 05/06/17 05:59 04/09/17 06:19 50 MCG Loperamide HCl (Imodium Cap) 2 mg BID PRN PO 04/05/17 15:15 05/05/17 15:14 Lorazepam (Ativan Tab) 0.5 mg HS PRN PO 04/05/17 15:15 05/05/17 15:14 04/08/17 21:04 0.5 MG Methocarbamol (Robaxin Tab) 500 mg TID PRN PO 04/05/17 15:15 05/05/17 15:14 Metoclopramide HCl (Reglan Tab) 5 mg ACHS PO 04/05/17 16:00 05/05/17 15:59 04/09/17 16:56 5 MG Metolazone (Zaroxolyn Tab) 2.5 mg DAILY PO 04/06/17 09:00 05/06/17 08:59 04/09/17 07:39 2.5 MG Metoprolol Tartrate (Lopressor Tab) 75 mg BID PO 04/05/17 21:00 05/05/17 20:59 04/09/17 07:40 75 MG Multivitamins (Multivitamin Tab) 1 tab QAM PO 04/06/17 09:00 05/06/17 08:59 04/09/17 07:39 1 TAB Mupirocin (Bactroban 2% Oint) 1 appln BID TOP 04/05/17 21:00 05/05/17 20:59 04/08/17 08:55 1 APPLN Olanzapine (Zyprexa Tab) 2.5 mg HS PO 04/05/17 21:00 05/05/17 20:59 04/08/17 20:53 2.5 MG Pantoprazole Sodium (Protonix Tab) 40 mg HS PO 04/05/17 21:00 05/05/17 20:59 04/08/17 20:53 40 MG Potassium Chloride (Klor-Con Tab) 20 meq BID PO 04/05/17 21:00 05/05/17 20:59 04/09/17 07:42 20 MEQ Tiotropium [place] (Spiriva Handihaler Inhaler) 1 puff DAILY INH 04/06/17 09:00 05/06/17 08:59 04/09/17 07:36 1 PUFF Venlafaxine HCl (effeXOR EXTENDED REL CAP) 225 mg QAM PO 04/06/17 09:00 05/06/17 08:59 04/09/17 07:41 225 MG Warfarin Sodium (Coumadin Tab) 5 mg SuTh@1600 PO 04/06/17 16:00 05/06/17 15:59 Future hold Warfarin Sodium (Coumadin Tab) 7.5 mg MoTuWeFrSa@1600 PO 04/07/17 16:00 05/07/17 15:59 Future hold 04/09/17 16:56 7.5 MG Amlodipine Besylate (Norvasc Tab) 10 mg QAM PO 04/06/17 09:00 05/06/17 08:59 04/09/17 07:38 10 MG Hydroxyzine HCl (Vistaril Tab) 25 mg Q6H PRN PO 04/05/17 17:30 05/05/17 17:29 Ranitidine HCl (zANTac TAB) 300 mg HS PO 04/05/17 21:00 05/05/17 20:59 04/08/17 20:54 300 MG Trazodone HCl (Desyrel Tab) 300 mg HS PO 04/05/17 21:00 05/05/17 20:59 04/08/17 20:54 300 MG Miscellaneous Information (Consult Glycemic Management Pharmacy) 1 ea UD PRN N/A 04/05/17 15:46 05/05/17 15:45 Nicotine (Nicoderm Cq 14MG Patch) 1 patch QAM TD 04/06/17 09:00 05/06/17 08:59 04/09/17 07:43 1 PATCH Miscellaneous (Remove Nicoderm Patch) 1 ea HS N/A 04/05/17 21:00 05/05/17 20:59 04/08/17 20:57 1 EA Oxycodone HCl (Roxicodone Immediate Rel Tab) 5 mg Q6H PRN PO 04/05/17 16:15 04/19/17 16:14 04/08/17 22:22 5 MG Miscellaneous (Fentanyl Patch Remove & Waste) 1 ea Q3D@1759 N/A 04/05/17 17:59 05/05/17 17:58 04/08/17 18:05 1 EA Miscellaneous Information (Check Fentanyl Patch Placement) 1 ea QS N/A 04/06/17 00:00 05/06/17 00:00 04/09/17 16:00 1 EA Albuterol/ Ipratropium (Duoneb) 3 ml QIDR INH 04/06/17 08:00 05/06/17 07:59 04/09/17 11:16 3 ML Albuterol/ Ipratropium (Duoneb) 3 ml Q2H PRN INH 04/06/17 04:15 05/06/17 04:14 Insulin Aspart (novoLOG ASPART) SLIDING SCALE G... ACHS SC 04/06/17 11:00 05/05/17 17:59 04/09/17 17:00 14 UNITS Prednisone (PredniSONE TAB) 40 mg DAILY PO 04/07/17 09:00 05/07/17 08:59 04/09/17 07:43 40 MG Doxycycline Hyclate (Vibramycin Cap) 100 mg BID PO 04/07/17 21:00 04/14/17 20:59 04/09/17 07:38 100 MG Furosemide (Lasix Tab) 40 mg BID PO 04/08/17 21:00 05/08/17 20:59 04/09/17 07:42 40 MG Insulin Glargine (Lantus Solostar Pen) 40 units BID SC 04/09/17 09:00 05/09/17 08:59 04/09/17 07:34 40 UNITS
[2017-04-09] MEDS ORDERED: POLYETHYLENE (MIRALAX) 17 GM PACK PO ONE (23:01)
[2017-04-09] MEDS ORDERED: POLYETHYLENE (MIRALAX) 17 GM PACK PO PRN (23:15)
[2017-04-10] VITALS (7 sets, daily range): BP systolic 101–133; BP diastolic 54–75; PULSE 64–83; TEMP 36.3–36.7; O2SAT 94–95
[2017-04-10] MEDS: CHECK FENTANYL PATCH PLACEMENT SCH ×2 (00:27→08:00)
[2017-04-10] MEDS: LEVOTHYROXINE 50 MCG TAB PO SCH (05:26)
[2017-04-10 05:56] LABS: INR 1.8 (0.9-1.1); PROTHROMBIN TIME (PATIENT) 19.2 SECONDS (9.0-12.0)
[2017-04-10 06:22] LABS: BUN/CREATININE RATIO 41.6 (10-20); CALCIUM 9.9 mg/dl (8.5-10.1); CREATININE 1.2 mg/dl (0.60-1.20); POTASSIUM 3.5 mmol/L (3.5-5.1)
[2017-04-10] MEDS: ALBUT/IPRATROP 3MG/0.5MG NEB 3 ML VIAL INH SCH ×3 (07:00→14:42)
[2017-04-10] MEDS: INSULIN ASPART 100 UNITS/ML 3 ML PEN SC SCH ×2 (07:51→11:40)
[2017-04-10] MEDS: INSULIN GLARGINE SOLOSTAR 100 UNITS/ML 3 ML PEN SC SCH (07:51)
[2017-04-10] MEDS: METOCLOPRAMIDE HCL 5 MG TAB PO SCH ×2 (07:51→11:36)
[2017-04-10] MEDS: TIOTROPIUM BROMIDE 5 PUFF/90 MCG INH INH SCH (07:52)
[2017-04-10] MEDS: FLUTICASONE/SALMETEROL 250/50 (ADVAIR) 14 PUFF/1 INHALER INH SCH (07:52)
[2017-04-10] MEDS: CETIRIZINE HCL 10 MG TAB PO SCH (07:53)
[2017-04-10] MEDS: AMLODIPINE BESYLATE 5 MG TAB PO SCH (07:53)
[2017-04-10] MEDS: GABAPENTIN 800 MG TAB PO SCH ×2 (07:53→14:52)
[2017-04-10] MEDS: VENLAFAXINE HCL XR 75 MG CAPXR PO SCH (07:54)
[2017-04-10] MEDS: CHOLECALCIFEROL 1000 INTER.UNIT TAB PO SCH (07:54)
[2017-04-10] MEDS: DOXYCYCLINE HYCLATE 100 MG CAP PO SCH (07:54)
[2017-04-10] MEDS: METOPROLOL TARTRATE 50 MG TAB PO SCH (07:55)
[2017-04-10] MEDS: POTASSIUM CHLORIDE 20 MEQ TABCR PO SCH (07:57)
[2017-04-10] MEDS: METOLAZONE 2.5 MG TAB PO SCH (07:57)
[2017-04-10] MEDS: MULTIVITAMIN TAB PO SCH (07:57)
[2017-04-10] MEDS: NICOTINE 14 MG/24 HR TDSY TD SCH (07:59)
[2017-04-10] MEDS: MUPIROCIN 2% OINT 22 GM TUBE TOP SCH (09:00)
[2017-04-10] MEDS ORDERED: FUROSEMIDE 20 MG TAB PO SCH ×3 (09:00→17:00)
[2017-04-10] MEDS: COLESTIPOL HCL 1 GM TAB PO SCH (10:00)
--- NOTE | 2017-04-10 11:52 | DIAGNOSTIC IMAGING REPORT ---
CHEST ONE VIEW PORTABLE CLINICAL HISTORY: 61 years-old Female presenting with rales heard throughout lungs, oxygenation improved,eval progress. TECHNIQUE: Portable upright AP view of the chest was obtained. COMPARISON: 04/05/2017. FINDINGS: Atherosclerosis of the aortic arch. Cardiac silhouette prominent. Prosthetic mitral valve noted. Interval decrease in bibasilar opacities. No large effusion or pneumothorax. Scattered surgical clips noted in the right upper lung. Osseous structures and upper abdomen normal. IMPRESSION: 1. Slight interval decrease in bibasilar opacities, likely improving pulmonary edema. Electronically signed by: Erick Garner M.D. 04/10/2017 11:51 AM Dictated Date/Time: 04/10/2017 11:43 AM
[2017-04-10] MEDS ORDERED: INSDGIPEN SC (14:27)
[2017-04-10] MEDS ORDERED: DXY100 PO (14:27)
[2017-04-10] MEDS ORDERED: NVLGIPEN SC (14:27)
[2017-04-10] MEDS ORDERED: PRD20 PO (14:27)
[2017-04-10] MEDS ORDERED: PRT/40 PO (14:27)
--- NOTE | 2017-04-10 14:43 | Discharge Instructions ---
Discharge Instructions Date of Service Apr 10, 2017. Admission Reason for Admission: Copd With Exacerbation,Cor Pulmonale (Chronic) Discharge Discharge Diagnosis / Problem: Acute on chronic hypoxemic resp failure, CHF exacerbation, COPD exacerbatio Discharge Goals Goal(s): Prevent Disease Progression Activity Recommendations Activity Limitations: per Instructions/Follow-up section . Instructions / Follow-Up Instructions / Follow-Up Call your Primary Care doctor if any of the following symptoms or problems start or get worse: * Shortness of breath or difficulty breathing * Wake up at night short of breath * Chest pain * Cough * Swelling of your hands, feet, or legs * More fatigued or tired with your normal activity * Palpitations - sudden fast heart beats WEIGHT * Weigh yourself every morning after using the bathroom. * Use the same scale. * Wear the same amount of clothing. * Write your weight down on a chart. * Call your Primary Care doctor if you gain more than 2-3 pounds in 1-2 days. MEDICATIONS * Use this discharge instruction sheet for medication instructions. * Take your medications at the time your doctor ordered. * Do not skip a dose of your medicines. * If you miss a dose of medicine, take it as soon as possible, but DO NOT DOUBLE A DOSE. * Read your medicine information when you get home. * Know all of the side effects of your medicine. If in doubt, ask your pharmacist * Call your Primary Care doctor's office if you have any side effects. * Be sure all of your doctors know what medicine and herbs you take (including cold, flu, and herbal medicine). Take the following with you to your follow-up doctor appointments: * Weight Chart * Medication List * List of questions Do not drink excessive alcohol, beer or wine. ADDITIONAL PROVIDER INSTRUCTIONS: -Please take all medications as directed. New scripts have been electronically transmitted to your preferred pharmacy on file. -Handwritten scripts have been provided for diabetes supplies for new test meter. Please keep a log of blood sugars and bring to every doctor's visit. -I recommend checking your blood sugar initially in the mornings before breakfast, and at least once in the day two hours after a meal. -Please weigh yourself on the same scale every day. If you notice yourself gaining weight (as above) or if you have worsening shortness of breath over the weekend, please call the hospitalist page number below and ask to speak with me. Ananyanatively, you can leave me a message at ( . If you feel your symptoms are severe or concerning seek immediate medical attention or call 911 instead. -I strongly recommend you stop smoking as this may extend your life! -Please follow-up with you [facility] for a recheck of your INR within one week of discharge. -There were some abnormal findings on your chest xray performed in the hospital. Please discuss with Dr. Lara or Dr. Goins about getting a follow- up chest xray in 4-6 weeks to ensure resolution. -you have an appointment with Dr. Shanon Lara on Fri, 04/14 @10:45am. Please bring all paperwork from discharge with you to this appointment. It was a pleasure taking care of you! Call if you have any questions or problems. You can reach a [facility] hospitalist on duty at [facility] 24 hours a day by calling [phone]. Take care of yourself. Ashleigh Humphrey DO [facility] Hospitalist Current Hospital Diet Patient's current hospital diet: Diabetes Type 2 Diet, AHA Diet (Heart Healthy) Discharge Diet Recommended Diet: AHA Diet (Heart Healthy), Diabetes Type 2 Diet Procedures Procedures Performed: TTE (04/07): The left ventricle is normal in size. There is moderate concentric left ventricular hypertrophy. The left ventricular wall motion is normal. Left ventricular systolic function is normal. Ejection Fraction = 65-70%. The left atrium is moderately dilated. There is evidence of a previous mitral valve repair with restricted posterior leaflet excursion. Significant mitral regurgitation is absent. There is no mitral valve stenosis. Pending Studies Studies pending at discharge: no Laboratory Results Hemoglobin A1c Test 04/06/17 04:33 Range/Units Estimated Average Glucose 292 mg/dl Hemoglobin A1c 11.8 H 4.5-5.6 % Medical Emergencies . Who to Call and When: Call 911 or go to the Emergency Room if: * If at any time you feel your situation is an emergency * You have tightness or pain in your chest that does not go away with rest or Nitroglycerin * You are very short of breath even with rest . Non-Emergent Contact Non-Emergency issues call your: Primary Care Provider . . "Provider Documentation" section prepared by Ashleigh Humphrey. . VTE Core Measure Inpt VTE Proph given/why not?: Warfarin (Coumadin)
--- NOTE | 2017-04-10 14:51 | Discharge Summary ---
Discharge Summary Date of Service Apr 10, 2017. Discharge Summary Admission Date: Apr 05, 2017 at 15:14 Discharge Date: Apr 10, 2017 Discharge Disposition: Home with services Principal Diagnosis: 1. Acute on chronic hypoxemic respiratory failure-multiple etiologies a. COPD exacerbation b. Acute diastolic CHF exacerbation c. moderate pulmonary HTN d. h/o noncompliance with supplemental oxygen e. active smoking. 2. Atrial fibrillation-on long-term coumadin 3. s/p mitral valve repair 4. DEpression 5. Bipolar Disorder 6. DMII-insulin dependent-uncontrolled 2/2 noncompliance 7. Hypertension 8. Hypothyroidism 9. DARIUS on CPAP 10. GERD 11. Hyponatremia 12. ЮЛИЯ in setting of CKD Stage III 13. Hypokalemia Procedures: TTE (04/07): * The left ventricle is normal in size. * There is moderate concentric left ventricular hypertrophy. * The left ventricular wall motion is normal. * Left ventricular systolic function is normal. * Ejection Fraction = 65-70%. * The left atrium is moderately dilated. * There is evidence of a previous mitral valve repair with restricted posterior leaflet excursion. * Significant mitral regurgitation is absent. * There is no mitral valve stenosis. Vaccinations: None. Consultations: None. Pending Studies/Follow-Up: see instructions below. Medication Reconciliation New Medications: Doxycycline Hyclate (Doxycycline Hyclate) 100 Mg Cap 100 MG PO BID for 2 Days, #4 CAP Insulin Aspart (Novolog Flexpen) 100 Units/Ml Inj 5 UNITS SC UD for 30 Days, #2 EA 1 Refill Take 15-30 minutes prior to largest meal of the day (supper). If you do not eat, do not take this medication. Prednisone (Prednisone) 20 Mg Tab 40 MG PO DAILY for 2 Days, #4 TAB Changed Medications: Pantoprazole (Pantoprazole Sodium) 40 Mg Tab 40 MG PO DAILY for 30 Days, #30 TAB 3 Refills (Changed from: HS; Refills: ) Take 30 minutes prior to a meal containing protein. Continued Medications: Albuterol Sulf (Proventil 0.083% 2.5MG/3ML) 2.5 Mg/3 Ml Nebu 2.5 MG INH Q6H PRN for Wheezing, EA Amitriptyline HCl (Amitriptyline HCl) 50 Mg Tab 50 MG PO HS Amlodipine Besylate (Amlodipine Besylate) 10 Mg Tab 10 MG PO QAM Atorvastatin (Atorvastatin Calcium) 40 Mg Tab 40 MG PO HS Calcitriol (Calcitriol) 0.5 Mcg Cap 0.5 MCG PO MWF Cetirizine (Zyrtec) 10 Mg Tab 10 MG PO QAM, TAB Cholecalciferol (Vitamin D) 1,000 Unit Tab 1000 INTER.UNIT PO DAILY Colestipol HCl (Colestid) 1 Gm Tab 1 GM PO BID Diphenoxylate/Atropine (Lomotil 2.5-0.025 mg) 1 Ea Tab 1 TAB PO UD PRN for Diarrhea Epinephrine (Epipen) 0.3 Mg/0.3 Ml Inj 0.3 MG IM UD PRN for ALLERGIC REACTION Fentanyl (Duragesic) 50 Mcg Tdsy 50 MCG TOP CQ72HR Fluticasone Prop/Salmeterol (Advair Diskus 250/50 60 Dose) 1 Ea Aerp 1 PUFF INH BID Furosemide (Furosemide) 40 Mg Tab 40 MG PO BID Gabapentin (Gabapentin) 800 Mg Tab 800 MG PO TID Home O2 Therapy (Oxygen) Gas 3 LITERS NA CONTINOUS Hydroxyzine Pamoate (Vistaril) 25 Mg Cap 25 MG PO Q6H PRN for Itching, CAP Insulin Glargine (Lantus Solostar) 100 Unit/Ml Inj 40 UNITS SC BID for 30 Days, #10 EA 3 Refills (This prescription has been renewed) Levothyroxine Sodium (Synthroid) 50 Mcg Tab 50 MCG PO QAM, TAB Loperamide Hcl (Imodium) 2 Mg Cap 2 MG PO BID PRN for Loose Stool(s), CAP Lorazepam (Lorazepam) 0.5 Mg Tab 0.5 MG PO HS PRN for Anxiety Methocarbamol (Methocarbamol) 500 Mg Tab 500 MG PO TID PRN for Muscle Relaxer Metoclopramide Hcl (Metoclopramide Hcl) 5 Mg Tab 5 MG PO ACHS TAKE THIS MEDICATION 30 MINUTES BEFORE MEALS AND BEDTIME Metolazone (Zaroxolyn) 2.5 Mg Tab 2.5 MG PO DAILY, TAB TAKE THIS MEDICATION 30 MINUTES BEFORE LASIX Metoprolol Tartrate (Lopressor) (Lopressor) 50 Mg Tab 75 MG PO BID, TAB Multiple Vitamin (Multivitamin) 1 Tab Tab 1 TAB PO QAM, TAB Mupirocin (Bactroban) 2 % Oin 1 APPLN TOP BID, GM Olanzapine (Olanzapine) 2.5 Mg Tab 2.5 MG PO HS Ondansetron (Ondansetron HCl) 8 Mg Tab 8 MG PO BID PRN for Nausea Oxycodone HCl (Oxycodone HCl) 5 Mg Tab 10 MG PO Q6H PRN for Pain Potassium Chloride Microencaps (Potassium Chloride Cr) 10 Meq Tab 20 MEQ PO BID Ranitidine Hcl (Zantac) 300 Mg Tab 300 MG PO HS Tiotropium [place] (Spiriva Handihaler) 30 Puff/540 Mcg Aerp 1 CAP INH DAILY, INHALER Trazodone HCl (Trazodone HCl) 150 Mg Tab 300 MG PO HS Venlafaxine Hcl (Effexor Extended Rel) 75 Mg Capcr 225 MG PO QAM Warfarin Sodium (Warfarin Sodium) 5 Mg Tab 5 MG PO 2XWK, TAB TAKE 5 MG EVERY FRIDAY AND FRIDAY OR OTHERWISE DIRECTED TO TAKE BY ANTICOAGULATION CLINIC/MD Warfarin Sodium (Warfarin Sodium) 5 Mg Tab 7.5 MG PO 5XWK, TAB TAKE 7.5 MG EVERY FRIDAY,FRIDAY,FRIDAY,FRIDAY AND FRIDAY OR OTHERWISE DIRECTED TO TAKE BY ANTICOAGULATION CLINIC/MD Admission Information HPI (per Admitting provider): HISTORY OF PRESENT COMPLAINT: She is a 61-year-old female with significant past medical history including severe COPD with ongoing smoking, cor pulmonale, paroxysmal atrial fibrillation, chronic kidney disease, chest pain status post mitral valve repair on long-term anticoagulation, hyperlipidemia, osteoarthritis, bipolar disorder, type 2 diabetes and hypertension, apparently has been complaining of shortness of breath for the last 2 weeks. She has had 4 ER visits since last 2 weeks with ongoing shortness of breath and she has had 2 courses of antibiotic recently. She was seen by her primary care physician for the same reason and was started on intravenous and oral Levaquin for the last 2 days. The condition did not get better. She has been having more shortness of breath, chest tightness, cough with productive of yellow phlegm so she was brought into the Emergency Room for further evaluation today. In the ER, she was hemodynamically stable. She did not have any fever and her lab work remained unremarkable including chest x-ray which did not show any pneumonia, but did show possible pulmonary edema. From that point, she was admitted to telemetry unit for continuation of care. Physical Exam (per Admitting): PHYSICAL EXAMINATION: GENERAL: On examination in the Emergency Room, she was having moderate distress at rest but no chest pain. VITAL SIGNS: Temperature of 36.6, pulse was 95, blood pressure 146/64, saturation 90% on 4 liters nasal cannula. HEAD, EYES, EARS, NOSE, AND THROAT: Unremarkable. NECK: Supple. No JVD, no bruit. CHEST: Decreased breath sounds with coarse crackles and wheezing bilaterally. HEART: S1, S2 irregular with prosthetic valve sounds, 2/6 systolic murmur over precordium. ABDOMEN: Soft, benign, nontender, no organomegaly. Bowel sounds present. EXTREMITIES: Chronic skin changes in both the lower legs with trace edema bilaterally. MUSCULOSKELETAL SYSTEM: No acute arthritis in any joint CENTRAL NERVOUS SYSTEM: She was alert, awake, oriented x3 and no focal sensory and/or motor deficit appreciated. Hospital Course Patient is a 61-year-old female with multiple comorbidities presented to the hospital with acute shortness of breath 1. ACUTE ON CHRONIC SOB :In setting of CHRONIC HYPOXIC RESPIRATORY FAILURE, COPD, MODERATE PULMONARY HYPERTENSION, HX OF NON COMPLIANCE WITH OXYGEN, ACTIVE SMOKING: Likely acute component is multifactorial: COPD exacerbation, acute diastolic CHF exacerbation. Oxygen down to 2 L (at home 3 L). Lasix was changed to PO per home regimen (40mg BID). Cont Nebs, prednisone and doxycycline. CXR- no pneumonia; ABGs reviewed- no CO2 retention 2. CHF EXACERBATION, DIASTOLIC WITH PRESERVED EF: initial CXR - pulmonary congestion, elevated BNP to 1200 (poss 2/2 pulm HTN), LE swelling noted by patient--all improved after three days of diuresis. Clinically improved overall with weight down and net negative approx 10L down since admission. PO Lasix as above. Serial cardiac enzymes are negative and repeat TTE reveals normal LV and RV systolic function with h/o mitral valve repair and restricted posterior leaflet excursion. Pt is compensated at this point and feeling well, however, the following day, rales were heard without any other signs or symptoms of increased fluid retention. It was advised that she strongly consider staying at least one more day with high readmission rate and propensity to decompensate quickly over a weekend. She declined and said she needed to get home. We discussed in detail the importance of daily weights and self-monitoring of her breathing with the instruction to call me over the weekend (numbers given) and PCP if next week. Home Health was also ordered at discharge for further monitoring which patient agreed to before leaving. Three- day follow-up appointment was also scheduled for her. 3. COPD EXACERBATION: Cont Nebs, prednisone and doxy. Cont supplemental oxygen to maintain saturation 88-92% 4. HX OF ATRIAL FIBRILLATION/ MITRAL VALVE REPAIR--NSR: On Metoprolol 75 mg PO BID, Coumadin. INR subtherapeutic, close recheck INR recommended following discharge. CC notified of need for close follow-up. 5. DEPRESSION/BIPOLAR DISORDER: Stable. Continue with home medications 6. DM-2: ISS, Accuchecks. Monitor while on steroids. Pt requiring higher Lantus and tighter control-pharmacist adjusted medications to reflect this- appreciate recs. Discussed the use of prandial insulin as outpatient going home with A1C>11. Pt states that with even Novolog 1 Unit, she suffered hypoglycemic episodes. Will not send home on long-term steroids and, therefore , sugars are likely to drop. Will cont Lantus and make strong recommendation for her to see Endo as outpatient. Also important to note is that on day of discharge, she admitted to tn she had been noncompliant with Lantus or any insulin/antiglycemics for at least the last 3 months. With this new information , Novolog was added to take only with largest meal of the day. Three day PCP follow up was scheduled prior to discharge. 7. HTN-controlled. Continue with home medications 8. HYPOTHYROIDISM: On levothyroxine, TSH normal. Cont current dose. 9. DARIUS on CPAP 10. GERD: protonix 11. TOBACCO ABUSE DISORDER: Cessation advised. 12. Hypokalemia-likely 2/2 Lasix use. Replaced 13. Hyponatremia-monitor on Lasix-within normal limits today. 14. CKD, Stage III: mild ЮЛИЯ appears present, likely 2/2 recent IV diuretic use and significant diuresis. Changed Lasix to PO but still with significant diuresis. decrease Lasix by 50%. Follow PRP in am. On day of discharge patient was hemodynamically stable and afebrile. She was mentating normally and ambulating/breathing at baseline citing no shortness of breath. Despite rales on exam and encouraging her to stay one more day for further diuresis, she decided to go home with close PCP followup and Home Health. She was discharged in stable condition. Total time spent on discharge = 60 This includes examination of the patient, discharge planning, medication reconciliation, and communication with other providers. Discharge Instructions Discharge Instructions Date of Service Apr 10, 2017. Admission Reason for Admission: Copd With Exacerbation,Cor Pulmonale (Chronic) Discharge Discharge Diagnosis / Problem: Acute on chronic hypoxemic resp failure, CHF exacerbation, COPD exacerbatio Discharge Goals Goal(s): Prevent Disease Progression Activity Recommendations Activity Limitations: per Instructions/Follow-up section . Instructions / Follow-Up Instructions / Follow-Up Call your Primary Care doctor if any of the following symptoms or problems start or get worse: * Shortness of breath or difficulty breathing * Wake up at night short of breath * Chest pain * Cough * Swelling of your hands, feet, or legs * More fatigued or tired with your normal activity * Palpitations - sudden fast heart beats WEIGHT * Weigh yourself every morning after using the bathroom. * Use the same scale. * Wear the same amount of clothing. * Write your weight down on a chart. * Call your Primary Care doctor if you gain more than 2-3 pounds in 1-2 days. MEDICATIONS * Use this discharge instruction sheet for medication instructions. * Take your medications at the time your doctor ordered. * Do not skip a dose of your medicines. * If you miss a dose of medicine, take it as soon as possible, but DO NOT DOUBLE A DOSE. * Read your medicine information when you get home. * Know all of the side effects of your medicine. If in doubt, ask your pharmacist * Call your Primary Care doctor's office if you have any side effects. * Be sure all of your doctors know what medicine and herbs you take (including cold, flu, and herbal medicine). Take the following with you to your follow-up doctor appointments: * Weight Chart * Medication List * List of questions Do not drink excessive alcohol, beer or wine. ADDITIONAL PROVIDER INSTRUCTIONS: -Please take all medications as directed. New scripts have been electronically transmitted to your preferred pharmacy on file. -Handwritten scripts have been provided for diabetes supplies for new test meter. Please keep a log of blood sugars and bring to every doctor's visit. -I recommend checking your blood sugar initially in the mornings before breakfast, and at least once in the day two hours after a meal. -Please weigh yourself on the same scale every day. If you notice yourself gaining weight (as above) or if you have worsening shortness of breath over the weekend, please call the hospitalist page number below and ask to speak with me. Althernatively, you can leave me a message at ( . If you feel your symptoms are severe or concerning seek immediate medical attention or call 911 instead. -I strongly recommend you stop smoking as this may extend your life! -Please follow-up with you [facility] for a recheck of your INR within one week of discharge. -There were some abnormal findings on your chest xray performed in the hospital. Please discuss with Dr. Lara or Dr. Goins about getting a follow- up chest xray in 4-6 weeks to ensure resolution. -you have an appointment with Dr. Shanon Lara on 04/14 @10:45am. Please bring all paperwork from discharge with you to this appointment. It was a pleasure taking care of you! Call if you have any questions or problems. You can reach a [facility] hospitalist on duty at [facility] 24 hours a day by calling [phone]. Take care of yourself. Ashleigh Humphrey, DO [facility] Medical Center[facility] Additional Copies To Shanon Lara M.D.; Manoj Goins D.O.
[2017-04-20] MEDS ORDERED: INSDGIPEN SC (15:50)
[2017-05-03] MEDS ORDERED: ATRINS INH (16:30)
[2017-05-03] MEDS ORDERED: GUAI1TAB68 PO (16:30)
[2017-05-03] MEDS ORDERED: XPNINS1255 INH (16:30)
[2017-05-03] MEDS ORDERED: PRD20 PO (16:54)
[2017-05-03] MEDS ORDERED: NVLGIPEN SC (16:54)
[2017-05-03] MEDS ORDERED: INSDGIPEN SC (16:54)
[2017-05-05] MEDS ORDERED: LEVO50TA PO (13:11)
== END 2017-04-10 15:44 | disposition home health service (06) | DRG 291 ==
LOC: EDBD 13:18 → C.EDB 13:19 → C.2T 15:14 → ENRESERV 15:26
PROVIDERS: ADMIT Internal Medicine; ATTEND Hospitalist
DX: I13.0 Hypertensive heart and chronic kidney disease with heart failure and stage 1 through stage 4 chronic kidney disease, or unspecified chronic kidney disease (principal); I50.31 Acute diastolic (congestive) heart failure; J96.21 Acute and chronic respiratory failure with hypoxia; N17.9 Acute kidney failure, unspecified; J44.1 Chronic obstructive pulmonary disease with (acute) exacerbation; E87.1 Hypo-osmolality and hyponatremia; I27.81 Cor pulmonale (chronic); N18.3 Chronic kidney disease, stage 3 (moderate); I27.2 Other secondary pulmonary hypertension; F17.210 Nicotine dependence, cigarettes, uncomplicated; I48.0 Paroxysmal atrial fibrillation; E03.9 Hypothyroidism, unspecified; G47.33 Obstructive sleep apnea (adult) (pediatric); E78.5 Hyperlipidemia, unspecified; M19.90 Unspecified osteoarthritis, unspecified site; R07.9 Chest pain, unspecified; K21.9 Gastro-esophageal reflux disease without esophagitis; E87.6 Hypokalemia; E11.65 Type 2 diabetes mellitus with hyperglycemia; E11.22 Type 2 diabetes mellitus with diabetic chronic kidney disease; F32.9 Major depressive disorder, single episode, unspecified; E11.43 Type 2 diabetes mellitus with diabetic autonomic (poly)neuropathy; K31.84 Gastroparesis; Z86.19 Personal history of other infectious and parasitic diseases; Z95.2 Presence of prosthetic heart valve; Z79.899 Other long term (current) drug therapy; Z91.14 Patient's other noncompliance with medication regimen; Z79.891 Long term (current) use of opiate analgesic; Z91.19 Patient's noncompliance with other medical treatment and regimen; Z99.89 Dependence on other enabling machines and devices; Z86.718 Personal history of other venous thrombosis and embolism; Z79.51 Long term (current) use of inhaled steroids; Z79.01 Long term (current) use of anticoagulants; J45.909 Unspecified asthma, uncomplicated; F31.9 Bipolar disorder, unspecified; J96.10 Chronic respiratory failure, unspecified whether with hypoxia or hypercapnia; I45.10 Unspecified right bundle-branch block; Z83.3 Family history of diabetes mellitus; Z82.49 Family history of ischemic heart disease and other diseases of the circulatory system; Z79.4 Long term (current) use of insulin; Z99.81 Dependence on supplemental oxygen; Z83.79 Family history of other diseases of the digestive system

== ENCOUNTER 2017-04-13 03:08 | Emergency (ER) | payer OTHER ==
[~2017-04-13] VITALS: Ht 162.6 cm; Wt 85.0 kg
[~2017-04-13 03:08] MED LIST changes: -AZIT250T5 PO; +DXY100 PO; +NVLGIPEN SC; +PRD20 PO
[2017-04-13 03:12] VITALS: TEMP 36.5; Ht 162.6 cm; Wt 85.0 kg
[2017-04-13] MEDS ORDERED: ACETAMINOPHEN 500 MG TAB PO STA (03:23)
[2017-04-13] MEDS ORDERED: HYDROCODONE/ACETAMOPHEN 5/325MG TAB PO STA (03:57)
--- NOTE | 2017-04-13 04:10 | EMERGENCY ROOM VISIT NOTE ---
History Report prepared by Scribjaswinder: Jesús Ngo Under the Supervision of: Brittnee FryeO. First contact with patient: 03:18 Chief Complaint: FALL Stated Complaint: FALL History of Present Illness The patient is a 61 year old female who presents to the Emergency Room with complaints of constant right lower leg and ankle pain s/p fall occurring just prior to arrival. She states that she was laying in bed when she got up to get some water. She states that her leg gave out on her, and she fell on her ankle. The patient did not hit her head or lose consciousness. She has not taken anything for pain. Source of History: patient Onset: Just prior to arrival Position: leg (right lower), ankle (right) Timing: constant Associated Symptoms: No LOC Review of Systems See HPI for pertinent positives and negatives. A total of ten systems were reviewed and were otherwise negative. Past Medical & Surgical Medical Problems: (1) Acute electrocardiogram changes (2) Asthma (3) Atrial fibrillation (4) Bipolar disorder (5) C. 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 (23) DARIUS on CPAP (24) Osteoarthritis (25) PAF (paroxysmal atrial fibrillation) Surgical Problems: (1) H/O: hysterectomy (2) Hx of appendectomy (3) Hx of cholecystectomy (4) Hx of lumpectomy (5) Hx of mitral valve repair (6) Hx of tubal ligation (7) Hx of umbilical hernia repair Family History Diabetes mellitus MOTHER FH: Crohn's disease SISTER Hypertension MOTHER Social History Smoking Status: Current Every Day Smoker Alcohol Use: none Drug Use: none Marital Status: Housing Status: lives with significant other Occupation Status: disabled Current/Historical Medications Scheduled Amitriptyline HCl (Amitriptyline HCl), 50 MG PO HS Amlodipine Besylate (Amlodipine Besylate), 10 MG PO QAM Atorvastatin (Atorvastatin Calcium), 40 MG PO HS Calcitriol (Calcitriol), 0.5 MCG PO MWF Cetirizine (Zyrtec), 10 MG PO QAM Cholecalciferol (Vitamin D), 1,000 INTER.UNIT PO DAILY Colestipol HCl (Colestid), 1 GM PO BID Fentanyl (Duragesic), 50 MCG TOP CQ72HR Fluticasone Prop/Salmeterol (Advair Diskus 250/50 60 Dose), 1 PUFF INH BID Furosemide (Furosemide), 40 MG PO BID Gabapentin (Gabapentin), 800 MG PO TID Home O2 Therapy (Oxygen), 3 LITERS NA CONTINOUS Insulin Aspart (Novolog Flexpen), 5 UNITS SC UD Insulin Glargine (Lantus Solostar), 40 UNITS SC BID Levothyroxine Sodium (Synthroid), 50 MCG PO QAM Metoclopramide Hcl (Metoclopramide Hcl), 5 MG PO ACHS Metolazone (Zaroxolyn), 2.5 MG PO DAILY Metoprolol Tartrate (Lopressor) (Lopressor), 75 MG PO BID Multiple Vitamin (Multivitamin), 1 TAB PO QAM Mupirocin (Bactroban), 1 APPLN TOP BID Olanzapine (Olanzapine), 2.5 MG PO HS Pantoprazole (Pantoprazole Sodium), 40 MG PO DAILY Potassium Chloride Microencaps (Potassium Chloride Cr), 20 MEQ PO BID Prednisone (Prednisone), 40 MG PO DAILY Ranitidine Hcl (Zantac), 300 MG PO HS Tiotropium [place] (Spiriva Handihaler), 1 CAP INH DAILY Trazodone HCl (Trazodone HCl), 300 MG PO HS Venlafaxine Hcl (Effexor Extended Rel), 225 MG PO QAM Warfarin Sodium (Warfarin Sodium), 5 MG PO 2XWK Warfarin Sodium (Warfarin Sodium), 7.5 MG PO 5XWK Scheduled PRN Albuterol Sulf (Proventil 0.083% 2.5MG/3ML), 2.5 MG INH Q6H PRN for Wheezing Diphenoxylate/Atropine (Lomotil 2.5-0.025 mg), 1 TAB PO UD PRN for Diarrhea Epinephrine (Epipen), 0.3 MG IM UD PRN for ALLERGIC REACTION Hydroxyzine Pamoate (Vistaril), 25 MG PO Q6H PRN for Itching Loperamide Hcl (Imodium), 2 MG PO BID PRN for Loose Stool(s) Lorazepam (Lorazepam), 0.5 MG PO HS PRN for Anxiety Methocarbamol (Methocarbamol), 500 MG PO TID PRN for Muscle Relaxer Ondansetron (Ondansetron HCl), 8 MG PO BID PRN for Nausea Oxycodone HCl (Oxycodone HCl), 10 MG PO Q6H PRN for Pain Allergies Coded Allergies: BEE STING (Verified Allergy, Severe, SWELLING, 04/13/17) Lisinopril (Verified Allergy, Intermediate, FACE SWELLING, 04/13/17) Metronidazole (Verified Allergy, Mild, FACE SWELLING, 04/13/17) [place] (Verified Allergy, Mild, HIVES, 04/13/17) Alprazolam (Verified Allergy, Unknown, RED FACE, FACE SWELLING, 04/13/17) Lactose (Verified Adverse Reaction, Intermediate, VOMTING DIARRHEA ABDOMINAL PAIN, 04/13/17) Prednisone (Verified Adverse Reaction, Mild, unknown, 04/13/17) Colesevelam (Verified Adverse Reaction, Unknown, unknown, 04/13/17) Bodega (Verified Adverse Reaction, Unknown, jitters, 04/13/17) Uncoded Allergies: BBQ CHIPS (Allergy, Unknown, FACE SWELLING, 12/22/15) Physical Exam Vital Signs Date Time Temp Pulse Resp B/P (MAP) Pulse Ox O2 Delivery O2 Flow Rate FiO2 04/13/17 03:12 36.5 126 20 93/63 96 Room Air Physical Exam GENERAL: Awake, alert, well-appearing, in no distress HENT: Normocephalic, atraumatic. Oropharynx unremarkable. EYES: Normal conjunctiva. Sclera non-icteric. NECK: Supple. No nuchal rigidity. FROM. No JVD. RESPIRATORY: Clear to auscultation. CARDIAC: Regular rate, normal rhythm. Extremities warm and well perfused. Pulses equal. ABDOMEN: Soft, non-distended. No tenderness to palpation. No rebound or guarding. No masses. RECTAL: Deferred. MUSCULOSKELETAL: Chest examination reveals no tenderness. The back is symmetrical on inspection without obvious abnormality. There is no CVA tenderness to palpation. No joint edema. LOWER EXTREMITIES: Right anterior faye with tenderness to palpation. No obvious deformity. NVI distally. Right foot with tenderness to palpation. NVI distally. NEURO: Normal sensorium. No sensory or motor deficits noted. GCS of 15. SKIN: No rash or jaundice noted. Medical Decision & Procedures ER Provider Diagnostic Interpretation: Three View Right Foot X-ray interpreted by me: Negative for fracture or dislocation. Two View Right TIBIA/FIBULA X-ray interpreted by me: mid shaft fibula fracture. Medications Administered Medications (Trade) Dose Ordered Sig/Artemio Route Start Time Stop Time Status Last Admin Dose Admin Acetaminophen (Tylenol Tab) 1,000 mg NOW STAT PO 04/13/17 03:23 04/13/17 03:25 DC 04/13/17 03:38 1,000 MG Acetaminophen/ Hydrocodone Bitart ([place] 5/325 Tab) 1 tab ONE STAT PO 04/13/17 03:57 04/13/17 03:59 DC 04/13/17 04:04 1 TAB ED Course 0318: The patient was evaluated in room A9B. A complete history and physical exam was performed. 0323: Ordered Tylenol Tab 1000 mg PO. 0357: Ordered [place] 5/325 Tab PO. 0410: I reevaluated the patient. Discussed results and discharge instructions: she verbalized understanding and agreement. The patient is ready for discharge. Medical Decision Differential diagnoses include but are not limited to; fracture, sprain, strain , and contusion. Patient was given Tylenol and and hydrocodone. Patient is on a treatment plan however patient has a fracture I researched her LEAVE COORDINATOR chart and she did receive 120 oxycodone and fentanyl patch prescriptions on March 17. Patient will get a [place] home pack be placed in a posterior splint. The patient has seen Dr. Collins in the past from [facility] orthopedics and she will follow-up with them Impression Primary Impression: Right fibular fracture Scribe Attestation The scribe's documentation has been prepared under my direction and personally reviewed by me in its entirety. I confirm that the note above accurately reflects all work, treatment, procedures, and medical decision making performed by me. Departure Information Dispostion Home / Self-Care Referrals Manoj Goins D.O. (PCP) Patient Instructions ED Fx Lower Ext, My [facility] Additional Instructions Follow with your orthopedic physician who you have seen in past
[2017-04-13] MEDS ORDERED: NORCO 5/325MG HOME PACK PO ONE (04:15)
[2017-04-13 04:46] VITALS: BP 101/69; PULSE 131; O2SAT 95
--- NOTE | 2017-04-13 06:04 | DIAGNOSTIC IMAGING REPORT ---
RIGHT TIBIA/FIBULA 2 VIEWS ROUTINE CLINICAL HISTORY: pain Right trauma. Pain. COMPARISON: None. DISCUSSION: Nondisplaced oblique fracture mid fibular shaft. Remaining osseous structures are unremarkable. There is no evidence for soft tissue swelling. IMPRESSION: Nondisplaced oblique fracture mid fibular shaft. The above report was generated using voice recognition software. It may contain grammatical, syntax or spelling errors. Electronically signed by: Javan Dey M.D. 04/13/2017 6:03 AM Dictated Date/Time: 04/13/2017 6:02 AM
--- NOTE | 2017-04-13 06:05 | DIAGNOSTIC IMAGING REPORT ---
RIGHT FOOT MIN 3 VIEWS ROUTINE CLINICAL HISTORY: pain Right trauma COMPARISON: None. DISCUSSION: Nondisplaced cortical fracture base second metatarsal. No additional acute bony abnormality. Small heel spur. There is no evidence for soft tissue swelling. IMPRESSION: Nondisplaced cortical fracture base second metatarsal. The above report was generated using voice recognition software. It may contain grammatical, syntax or spelling errors. Electronically signed by: Javan Dey M.D. 04/13/2017 6:04 AM Dictated Date/Time: 04/13/2017 6:03 AM
[2017-04-20] MEDS ORDERED: INSDGIPEN SC (15:50)
[2017-04-23] MEDS ORDERED: FURO-85 PO (14:29)
[2017-04-23] MEDS ORDERED: DXY100 PO (14:30)
[2017-04-23] MEDS ORDERED: POTA10TA79 PO (14:30)
[2017-04-23] MEDS ORDERED: PRD20 PO (14:30)
[2017-05-03] MEDS ORDERED: XPNINS1255 INH (16:30)
[2017-05-03] MEDS ORDERED: ATRINS INH (16:30)
[2017-05-03] MEDS ORDERED: GUAI1TAB68 PO (16:30)
[2017-05-03] MEDS ORDERED: PRD20 PO (16:54)
[2017-05-03] MEDS ORDERED: NVLGIPEN SC (16:54)
[2017-05-03] MEDS ORDERED: INSDGIPEN SC (16:54)
[2017-05-05] MEDS ORDERED: LEVO50TA PO (13:11)
== END 2017-04-13 04:46 | disposition home or self-care (01) ==
LOC: C.EDB 03:09 → C.EDA 04:46
DX: S82.401A Unspecified fracture of shaft of right fibula, initial encounter for closed fracture (principal); W19.XXXA Unspecified fall, initial encounter; I48.91 Unspecified atrial fibrillation; I10 Essential (primary) hypertension; F31.9 Bipolar disorder, unspecified; J45.909 Unspecified asthma, uncomplicated; E11.9 Type 2 diabetes mellitus without complications; E03.9 Hypothyroidism, unspecified; K31.84 Gastroparesis; K21.9 Gastro-esophageal reflux disease without esophagitis; J44.9 Chronic obstructive pulmonary disease, unspecified; M19.90 Unspecified osteoarthritis, unspecified site; Z86.718 Personal history of other venous thrombosis and embolism; G47.33 Obstructive sleep apnea (adult) (pediatric); F17.200 Nicotine dependence, unspecified, uncomplicated; Z98.51 Tubal ligation status; Z90.710 Acquired absence of both cervix and uterus; Z90.49 Acquired absence of other specified parts of digestive tract; Z79.01 Long term (current) use of anticoagulants; Z79.4 Long term (current) use of insulin; Z79.899 Other long term (current) drug therapy; Z88.8 Allergy status to other drugs, medicaments and biological substances; Z91.011 Allergy to milk products; Z91.030 Bee allergy status; Z83.3 Family history of diabetes mellitus; Z82.49 Family history of ischemic heart disease and other diseases of the circulatory system

== ENCOUNTER 2017-04-20 12:13 | Inpatient (IN) | payer OTHER ==
[2017-04-20] VITALS (12 sets, daily range): BP systolic 120–141; BP diastolic 61–81; PULSE 62–113; TEMP 36.8–37.3; O2SAT 93–100; Ht 162.6 cm; Wt 84.0 kg
[~2017-04-20] VITALS: Ht 162.6 cm; Wt 84.0 kg
[~2017-04-20 12:13] MED LIST changes: -DXY100 PO
[2017-04-20] MEDS ORDERED: MAGNESIUM SULFATE 1GM / D5W 1 GM BAG IV STA (12:46)
[2017-04-20] MEDS ORDERED: METHYLPREDNISOLONE 125 MG VIAL IV STA (12:46)
[2017-04-20] MEDS ORDERED: SODIUM CHLORIDE 0.9% 1000ML 1,000 ML IV STA (12:46)
[2017-04-20 12:55] LABS: VEN BLOOD GAS BASE EXCESS 23.5 mEq/L
[2017-04-20 12:56] LABS: BASO % 0.2 %; BASO ABS # 0.02 K/uL (0-0.2); COMPLETE YES; EOS % 0.8 %; HEMATOCRIT 37.7 % (37-47); IG% 0.3 %; LYMPH ABS # 1.16 K/uL (1.2-3.4); MEAN CELL VOLUME 91.5 fL (80-100); MEAN CORPUSCULAR HEMOGLOBIN 31.6 pg (25-34); MEAN CORPUSCULAR HGB CONC 34.5 g/dl (32-36); MEAN PLATELET VOLUME 8.8 fL (7.4-10.4); MONO % 6.4 %; NEUT % 83.3 %; PLATELET COUNT 376 K/uL (130-400); RED BLOOD COUNT 4.12 M/uL (4.2-5.4)
[2017-04-20] MEDS ORDERED: ALBUT/IPRATROP 3MG/0.5MG NEB 3 ML VIAL INH ONE (13:00)
--- NOTE | 2017-04-20 13:03 | EMERGENCY ROOM VISIT NOTE ---
History Report prepared by [place]: Joanne Lancaster Under the Supervision of: Dr. Rich Ayala M.D. First contact with patient: 12:25 Chief Complaint: SHORTNESS OF BREATH Stated Complaint: BREATHING DIFFICULTY Nursing Triage Summary: pt arrives via ALS from home per report pt has been having breathing difficulty for the past 3 days today she was SOB, she took her Spiriva inhaler, she stated that made her feel a little better At home she was found on 3 Liter, her usual and her SAT was 87%, EMS increased it to 6L to get a 93% pt reports she fractured her right leg and has since then had a hard time at home with increasing weakness When first asked if she had chest pain she said now, but now with triage assessment she states it feels like "something is sitting on my chest." History of Present Illness The patient is a 61 year old female who presents to the Emergency Room with complaints of persistent shortness of breath that began three days ago. She currently rates her discomfort as an 8/10 in severity. The patient states that over the past three days she has been feeling fatigued. She additionally reports fever and chills. The patient states that she has been having persistent chest pain. She states that she has been congested and has had a nonproductive cough. The patient's believes that some of her shortness of breath stems from her anxiety. The patient states that she has been taking all of her medications. She states that she is on Coumadin for her atrial fibrillation and her mitral valve replacement. The patient states that she broke her right leg two weeks ago due to a fall. She reports increased pain to her right leg recently. The patient states that she is scheduled to see her orthopedic doctor in two weeks. She denies any nausea or vomiting. The patient denies being on any current antibiotics. Source of History: patient, spouse/significant other Onset: three days ago Position: other (global) Symptom Intensity: 8/10 Quality: other (shortness of breath) Timing: other (persistent) Associated Symptoms: + fevers, + chills, + cough, + chest pain, No nausea, No vomiting Note: Associated Symptoms: congestion Review of Systems See HPI for pertinent positives and negatives. A total of ten systems were reviewed and were otherwise negative. Past Medical & Surgical Medical Problems: (1) Acute electrocardiogram changes (2) Asthma (3) Atrial fibrillation (4) Bipolar disorder (5) C. difficile colitis (6) Chronic abdominal pain (7) Chronic cor pulmonale (8) Chronic pain (9) Chronic respiratory failure (10) COPD with exacerbation (11) COPD, severe (12) Cor pulmonale (chronic) (13) Depression (14) DM type 2 (diabetes mellitus, type 2) (15) DVT (deep venous thrombosis) (16) Gastroparesis (17) GERD (gastroesophageal reflux disease) (18) History of ear infection (19) HTN (hypertension) (20) Hypokalemia (21) Hypothyroidism (22) [place] toxicity (23) DARIUS on CPAP (24) Osteoarthritis (25) PAF (paroxysmal atrial fibrillation) Surgical Problems: (1) H/O: hysterectomy (2) Hx of appendectomy (3) Hx of cholecystectomy (4) Hx of lumpectomy (5) Hx of mitral valve repair (6) Hx of tubal ligation (7) Hx of umbilical hernia repair Family History Diabetes mellitus MOTHER FH: Crohn's disease SISTER Hypertension MOTHER Social History Smoking Status: Current Every Day Smoker Alcohol Use: none Drug Use: none Marital Status: Housing Status: lives with significant other Occupation Status: disabled Current/Historical Medications Scheduled Amitriptyline HCl (Amitriptyline HCl), 50 MG PO HS Amlodipine Besylate (Amlodipine Besylate), 10 MG PO QAM Atorvastatin (Atorvastatin Calcium), 40 MG PO HS Calcitriol (Calcitriol), 0.5 MCG PO MWF Cetirizine (Zyrtec), 10 MG PO QAM Fentanyl (Duragesic), 50 MCG TOP CQ72HR Fluticasone Prop/Salmeterol (Advair Diskus 250/50 60 Dose), 1 PUFF INH BID Furosemide (Furosemide), 40 MG PO BID Gabapentin (Gabapentin), 800 MG PO TID Home O2 Therapy (Oxygen), 3 LITERS NA CONTINOUS Insulin Aspart (Novolog Flexpen), 5 UNITS SC UD Insulin Glargine (Lantus Solostar), 36 UNITS SC BID Levothyroxine Sodium (Synthroid), 50 MCG PO QAM Metoclopramide Hcl (Metoclopramide Hcl), 5 MG PO ACHS Metolazone (Zaroxolyn), 2.5 MG PO DAILY Metoprolol Tartrate (Lopressor) (Lopressor), 75 MG PO BID Multiple Vitamin (Multivitamin), 1 TAB PO QAM Mupirocin (Bactroban), 1 APPLN TOP BID Olanzapine (Olanzapine), 2.5 MG PO HS Pantoprazole (Pantoprazole Sodium), 40 MG PO DAILY Potassium Chloride Microencaps (Potassium Chloride Cr), 20 MEQ PO BID Ranitidine Hcl (Zantac), 300 MG PO HS Tiotropium [place] (Spiriva Handihaler), 1 CAP INH DAILY Trazodone HCl (Trazodone HCl), 150 MG PO HS Venlafaxine Hcl (Effexor Extended Rel), 225 MG PO QAM Warfarin Sodium (Warfarin Sodium), 5 MG PO 2XWK Warfarin Sodium (Warfarin Sodium), 7.5 MG PO 5XWK Scheduled PRN Albuterol Sulf (Proventil 0.083% 2.5MG/3ML), 2.5 MG INH Q6H PRN for Wheezing Epinephrine (Epipen), 0.3 MG IM UD PRN for ALLERGIC REACTION Loperamide Hcl (Imodium), 2 MG PO BID PRN for Loose Stool(s) Lorazepam (Lorazepam), 0.5 MG PO HS PRN for Anxiety Oxycodone HCl (Oxycodone HCl), 10 MG PO Q6H PRN for Pain Allergies Coded Allergies: BEE STING (Verified Allergy, Severe, SWELLING, 04/20/17) Lisinopril (Verified Allergy, Intermediate, FACE SWELLING, 04/20/17) Metronidazole (Verified Allergy, Mild, FACE SWELLING, 04/20/17) [place] (Verified Allergy, Mild, HIVES, 04/20/17) Alprazolam (Verified Allergy, Unknown, RED FACE, FACE SWELLING, 04/20/17) Lactose (Verified Adverse Reaction, Intermediate, VOMTING DIARRHEA ABDOMINAL PAIN, 04/20/17) Prednisone (Verified Adverse Reaction, Mild, unknown, 04/20/17) Colesevelam (Verified Adverse Reaction, Unknown, unknown, 04/20/17) [place] (Verified Adverse Reaction, Unknown, jitters, 04/20/17) Uncoded Allergies: BBQ CHIPS (Allergy, Unknown, FACE SWELLING, 12/22/15) Physical Exam Vital Signs Date Time Temp Pulse Resp B/P (MAP) Pulse Ox O2 Delivery O2 Flow Rate FiO2 04/20/17 15:32 66 16 124/47 96 BiPAP 04/20/17 14:53 62 16 97 CPAP 50 04/20/17 14:51 62 97 04/20/17 13:26 64 16 148/52 99 Nebulizer 04/20/17 13:02 64 14 93 Nasal Cannula 5.0 04/20/17 12:31 94 Nasal Cannula 3.0 04/20/17 12:23 63 04/20/17 12:18 37.0 64 22 137/60 95 Nasal Cannula 3.0 04/20/17 12:18 94 Nasal Cannula 3.0 Physical Exam GENERAL: Awake, alert, chronically ill appearing, fatigued, no acute distress. HENT: Normocephalic, atraumatic. Mucous membranes are dry. EYES: Normal conjunctiva. Sclera non-icteric. NECK: Supple. No nuchal rigidity. FROM. No JVD. RESPIRATORY: Diminished breath sounds throughout, scattered wheezes. CARDIAC: Regular rate, normal rhythm. Extremities warm and well perfused. Pulses equal. ABDOMEN: Obese, Soft, non-distended. No tenderness to palpation. No rebound or guarding. No masses. RECTAL: Deferred. MUSCULOSKELETAL: Chest examination reveals no tenderness. The back is symmetrical on inspection without obvious abnormality. There is no CVA tenderness to palpation. No joint edema. LOWER EXTREMITIES: Brace on the right lower leg, no significant edema in the right lower leg. Resolved contusions noted in the toes, distal motor, pulse, and sensory intact. Calves are equal size bilaterally and non-tender. No edema. NEURO: Normal sensorium. No sensory or motor deficits noted. SKIN: No rash or jaundice noted. Medical Decision & Procedures ER Provider Diagnostic Interpretation: X-ray: Per my interpretation, radiologist review. CHEST ONE VIEW PORTABLE HISTORY: Short of breath. COMPARISON: Chest 04/10/2017. FINDINGS: The heart remains mildly enlarged. No pleural effusions. No pneumothorax. Cardiac valve prosthesis. Blunting of the left lateral costophrenic sulcus suggestive of a small pleural effusion. Progression of the interstitial and vascular thickening suggestive of worsening pulmonary edema. IMPRESSION: Worsening pulmonary edema with a small left pleural effusion. Electronically signed by: Tato Costa M.D. 04/20/2017 1:06 PM Dictated Date/Time: 04/20/2017 1:05 PM Laboratory Results Test 04/20/17 12:40 Venous Blood pH 7.45 (7.36-7.41) Venous Blood Partial Pressure CO2 78 mmHg (38.0-50.0) Venous Blood Partial Pressure O2 43 mmHg Venous Blood HCO3 52 mmol/L Venous Blood Oxygen Saturation 79.0 % Venous Blood Base Excess 23.5 mEq/L Pro-B-Type Natriuretic Peptide 1718 pg/ml (0-900) Laboratory results reviewed by me Medications Administered Medications (Trade) Dose Ordered Sig/Artemio Route Start Time Stop Time Status Last Admin Dose Admin Methylprednisolone Sodium Succinate (Solu-Medrol IV) 125 mg NOW STAT IV 04/20/17 12:46 04/20/17 12:50 DC 04/20/17 13:08 125 MG Albuterol/ Ipratropium (Duoneb) 12 ml ONE ONCE INH 04/20/17 13:00 04/20/17 13:01 DC 04/20/17 13:01 12 ML Magnesium Sulfate (Magnesium Sulfate) 2 gm NOW STAT IV 04/20/17 12:46 04/20/17 12:50 DC 04/20/17 13:07 2 GM Sodium Chloride 1,000 ml @ 999 mls/hr Q1H1M STAT IV 04/20/17 12:46 04/20/17 13:46 DC 04/20/17 13:06 999 MLS/HR Potassium Chloride (Klor-Con M10) 40 meq NOW STAT PO 04/20/17 13:27 04/20/17 13:28 DC 04/20/17 13:48 40 MEQ Furosemide (Lasix Inj) 40 mg NOW STAT IV 04/20/17 14:28 04/20/17 14:34 DC 04/20/17 15:06 40 MG Azithromycin 500 mg/Dextrose 255 ml @ 125 mls/hr ONE ONCE IV 04/20/17 14:45 04/20/17 16:47 DC 04/20/17 15:30 125 MLS/HR Ceftriaxone Sodium (Rocephin Inj) 1 gm NOW STAT IV 04/20/17 14:34 04/20/17 14:38 DC 04/20/17 15:29 1 GM ECG Indication: SOB/dyspnea Rate (beats per minute): 64 Rhythm: normal sinus Findings: 1st degree AV block, PVC, RBBB, no acute ischemic change Comparison ECG Date: 04/08/17 Change: When compared to EKG done on 04/08/17, the 1st degree AV block is new, otherwise the EKG is unchanged. ED Course 1232: The patient was evaluated in room C7. A complete history and physical exam was performed. 1246: Ordered Sodium Chloride 1000 ml @ 999 mls/hr IV, Magnesium Sulfate 2 gm IV , Solu-Medrol IV 125 mg IV. 1300: Ordered DuoNeb 12 ml INH. 1327: Ordered Potassium Chloride 40 meq PO. 1411: I reevaluated the patient and I ultra-sounded her heart at this time. I discussed the exam findings with her and her and I discussed the treatment plan. They verbalized complete understanding and agreement. The patient will be evaluated for further treatment. 1428: Ordered Lasix Inj 40 mg IV. 1434: Ordered Rocephin Inj 1 gm IV. 1438: I discussed the patients case with Kandy Walters. She is going to evaluate the patient for further treatment. 1445: Ordered Azithromycin 500 mg/Dextrose 255 ml @ 125 mls/hr IV. Medical Decision I reviewed the patient's past medical history, medications, and the nursing notes as described above. Differential Diagnosis include: COPD exacerbation, pneumonia, bronchitis, ACS, CHF, PE. Patient is a 61-year-old woman with a past medical history of COPD on 3 L home O2, A. fib on Coumadin, pulmonary hypertension with cor pulmonale on Lasix presents to the emergency department with worsening shortness of breath over the past several days with malaise and chills became worse today per history of present illness. Arrival the patient is in mild distress saturation 93 on 6 L but with labored breathing and tachypneic. Afebrile with stable vital signs otherwise. Lungs diminished with poor air entry throughout with scattered wheezes. Patient was given DuoNeb times, steroids, magnesium on arrival. However patient's workup is notable for a mixed picture including a CHF cor pulmonale component with BNP mildly elevated from recent and chest x-ray showing pulmonary edema. Bedside echo was grossly preserved RV and LV function. However the patient does have a dilated RV that is consistent with her pulmonary hypertension. Sitting the patient is therapeutic on her Coumadin this is unlikely to be strain from a pulmonary embolism. Moreover, wbc slightly elevated to 12 in the setting of the patient's malaise and chills. Patient also for CHF with Lasix and given Coverage with azithromycin and ceftriaxone. Patient with improved air movement after initial treatment with nebs and steroids, however still with mild work of breathing and considering the patient's hypercarbia to the 70s well compensated over the past several days is elevated from the patient's baseline. Thus she was placed on BiPAP for her work of breathing and to help with her chronic hypercarbia. Admitted to medicine for further management. Medication Reconcilliation Current Medication List: was personally reviewed by me Blood Pressure Screening Patient's blood pressure: Elevated blood pressure Blood pressure disposition: Elevated BP felt to be situational Consults Time Called: 141 Consulting Physician: Kandy Walters Returned Call: [phone] Impression Primary Impression: COPD with exacerbation Additional Impressions: CHF exacerbation CAP (community acquired pneumonia) Scribe Attestation The scribe's documentation has been prepared under my direction and personally reviewed by me in its entirety. I confirm that the note above accurately reflects all work, treatment, procedures, and medical decision making performed by me. Departure Information Dispostion Being Evaluated By Hospitalist Prescriptions Insulin Glargine (Lantus Solostar) 100 Unit/Ml Inj 36 UNITS SC BID for 30 Days, #10 EA 3 Refills Prov: Moon Hedrick, D.O. 04/20/17 Referrals Manoj Goins D.O. (PCP) Problem Qualifiers
--- NOTE | 2017-04-20 13:08 | DIAGNOSTIC IMAGING REPORT ---
CHEST ONE VIEW PORTABLE HISTORY: Short of breath. COMPARISON: Chest 04/10/2017. FINDINGS: The heart remains mildly enlarged. No pleural effusions. No pneumothorax. Cardiac valve prosthesis. Blunting of the left lateral costophrenic sulcus suggestive of a small pleural effusion. Progression of the interstitial and vascular thickening suggestive of worsening pulmonary edema. IMPRESSION: Worsening pulmonary edema with a small left pleural effusion. Electronically signed by: Tato Costa M.D. 04/20/2017 1:06 PM Dictated Date/Time: 04/20/2017 1:05 PM
[2017-04-20 13:12] LABS: BUN/CREATININE RATIO 13.3 (10-20); CREATININE 1.1 mg/dl (0.60-1.20); MAGNESIUM 2.3 mg/dl (1.8-2.4); POTASSIUM 2.6 mmol/L (3.5-5.1)
[2017-04-20] MEDS ORDERED: POTASSIUM CHLORIDE 10 MEQ TABCR PO STA (13:27)
[2017-04-20 14:25] LABS: INR 2.2 (0.9-1.1); PROTHROMBIN TIME (PATIENT) 24.2 SECONDS (9.0-12.0)
[2017-04-20] MEDS ORDERED: FUROSEMIDE 40 MG/4 ML VIAL IV STA (14:28)
[2017-04-20] MEDS ORDERED: CEFTRIAXONE SOD INJ 1 GM ADDVIAL IV STA (14:34)
[2017-04-20] MEDS ORDERED: AZITHROMYCIN IV 500 MG in DEXTROSE 5% 250ML 250 ML IV ONE (14:45)
[2017-04-20] MEDS ORDERED: ONDANSETRON INJ 2 MG/ML 2 ML VIAL IV PRN (15:30)
[2017-04-20] MEDS ORDERED: ACETAMINOPHEN 325 MG TAB PO PRN (15:30)
[2017-04-20] MEDS ORDERED: POLYETHYLENE (MIRALAX) 17 GM PACK PO PRN (15:30)
[2017-04-20] MEDS ORDERED: INSDGIPEN SC (15:50)
--- NOTE | 2017-04-20 15:58 | History and Physical ---
History & Physical Date & Time of Service: Apr 20, 2017 at 15:51 Chief Complaint: Breathing Difficulty Primary Care Physician: Manoj Goins D.O. History of Present Illness Source: patient, spouse, hospital records Patient is a 61 yo female who presents to the ER for complaints of SOB ongoing for the last 3 days. She is frequently somnolent during the HPI, and her at the bedside is extremely hard of hearing and unable to provide much additional information. Per the patient, she has been having SOB, cough, congestion, and reports some N/V/abdominal pain all for the last few days. She states that her cough has been productive of phlegm. Her has noticed the patient has not been eating as well and stated all she was taking in was lots of ice water and pepsi. She reports having some chest pain and occasional palpitations but she is not able to elaborate further as she keeps falling asleep. She was recently admitted to the hospital and had been doing well until the last few days. She also reports falling and breaking her leg about a week ago. Past Medical/Surgical History Medical Problems: (1) Asthma Status: Chronic (2) Atrial fibrillation Status: Chronic (3) Bipolar disorder Status: Chronic (4) C. difficile colitis Status: Resolved (5) Chronic abdominal pain Status: Chronic (6) Chronic cor pulmonale Status: Chronic (7) Chronic pain Status: Chronic (8) Chronic respiratory failure Status: Chronic (9) COPD, severe Status: Chronic (10) Depression Status: Chronic (11) DM type 2 (diabetes mellitus, type 2) Status: Chronic (12) DVT (deep venous thrombosis) Status: Chronic (13) Gastroparesis Status: Chronic (14) GERD (gastroesophageal reflux disease) Status: Chronic (15) HTN (hypertension) Status: Chronic (16) Hypothyroidism Status: Chronic (17) DARIUS on CPAP Status: Chronic (18) Osteoarthritis Status: Chronic Surgical Problems: (1) H/O: hysterectomy Status: Chronic (2) Hx of appendectomy Status: Chronic (3) Hx of cholecystectomy Status: Chronic (4) Hx of lumpectomy Status: Chronic (5) 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 Status: Chronic (6) Hx of tubal ligation Status: Chronic (7) Hx of umbilical hernia repair Status: Chronic Family History Diabetes mellitus MOTHER FH: Crohn's disease SISTER Hypertension MOTHER Social History Smoking Status: Current Every Day Smoker Drug Use: none Marital Status: Housing status: lives with family Occupational Status: disabled Immunizations History of Influenza Vaccine: Yes Influenza Vaccine Date: May 30, 2015 History of Tetanus Vaccine?: Yes Tetanus Immunization Date: Apr 22, 2006 History of Pneumococcal: Yes Pneumococcal Date: Mar 24, 2015 Multi-Drug Resistant Organisms History of MDRO: No Allergies Coded Allergies: BEE STING (Verified Allergy, Severe, SWELLING, 04/20/17) Lisinopril (Verified Allergy, Intermediate, FACE SWELLING, 04/20/17) Metronidazole (Verified Allergy, Mild, FACE SWELLING, 04/20/17) [place] (Verified Allergy, Mild, HIVES, 04/20/17) Alprazolam (Verified Allergy, Unknown, RED FACE, FACE SWELLING, 04/20/17) Lactose (Verified Adverse Reaction, Intermediate, VOMTING DIARRHEA ABDOMINAL PAIN, 04/20/17) Prednisone (Verified Adverse Reaction, Mild, unknown, 04/20/17) Colesevelam (Verified Adverse Reaction, Unknown, unknown, 04/20/17) [place] (Verified Adverse Reaction, Unknown, jitters, 04/20/17) Uncoded Allergies: BBQ CHIPS (Allergy, Unknown, FACE SWELLING, 12/22/15) Home Medications Scheduled Amitriptyline HCl (Amitriptyline HCl), 50 MG PO HS Amlodipine Besylate (Amlodipine Besylate), 10 MG PO QAM Atorvastatin (Atorvastatin Calcium), 40 MG PO HS Calcitriol (Calcitriol), 0.5 MCG PO MWF Cetirizine (Zyrtec), 10 MG PO QAM Fentanyl (Duragesic), 50 MCG TOP CQ72HR Fluticasone Prop/Salmeterol (Advair Diskus 250/50 60 Dose), 1 PUFF INH BID Furosemide (Furosemide), 40 MG PO BID Gabapentin (Gabapentin), 800 MG PO TID Home O2 Therapy (Oxygen), 3 LITERS NA CONTINOUS Insulin Aspart (Novolog Flexpen), 5 UNITS SC UD Insulin Glargine (Lantus Solostar), 36 UNITS SC BID Levothyroxine Sodium (Synthroid), 50 MCG PO QAM Metoclopramide Hcl (Metoclopramide Hcl), 5 MG PO ACHS Metolazone (Zaroxolyn), 2.5 MG PO DAILY Metoprolol Tartrate (Lopressor) (Lopressor), 75 MG PO BID Multiple Vitamin (Multivitamin), 1 TAB PO QAM Mupirocin (Bactroban), 1 APPLN TOP BID Olanzapine (Olanzapine), 2.5 MG PO HS Pantoprazole (Pantoprazole Sodium), 40 MG PO DAILY Potassium Chloride Microencaps (Potassium Chloride Cr), 20 MEQ PO BID Ranitidine Hcl (Zantac), 300 MG PO HS Tiotropium [place] (Spiriva Handihaler), 1 CAP INH DAILY Trazodone HCl (Trazodone HCl), 150 MG PO HS Venlafaxine Hcl (Effexor Extended Rel), 225 MG PO QAM Warfarin Sodium (Warfarin Sodium), 5 MG PO 2XWK Warfarin Sodium (Warfarin Sodium), 7.5 MG PO 5XWK Scheduled PRN Albuterol Sulf (Proventil 0.083% 2.5MG/3ML), 2.5 MG INH Q6H PRN for Wheezing Epinephrine (Epipen), 0.3 MG IM UD PRN for ALLERGIC REACTION Loperamide Hcl (Imodium), 2 MG PO BID PRN for Loose Stool(s) Lorazepam (Lorazepam), 0.5 MG PO HS PRN for Anxiety Oxycodone HCl (Oxycodone HCl), 10 MG PO Q6H PRN for Pain Physical Exam Vital Signs Date Time Temp Pulse Resp B/P (MAP) Pulse Ox O2 Delivery O2 Flow Rate FiO2 04/20/17 14:53 62 16 97 CPAP 50 04/20/17 14:51 62 97 04/20/17 13:26 64 16 148/52 99 Nebulizer 04/20/17 13:02 64 14 93 Nasal Cannula 5.0 04/20/17 12:31 94 Nasal Cannula 3.0 04/20/17 12:23 63 04/20/17 12:18 37.0 64 22 137/60 95 Nasal Cannula 3.0 04/20/17 12:18 94 Nasal Cannula 3.0 General Appearance: WD/WN, no apparent distress, + pertinent finding (drowsy) Head: normocephalic, atraumatic Eyes: PERRL, EOMI, sclerae normal ENT: hearing grossly normal Neck: supple, no JVD, no carotid bruits, trachea midline Respiratory/Chest: chest non-tender, no respiratory distress, no accessory muscle use, + decreased breath sounds, + wheezing Cardiovascular: regular rate, rhythm, no JVD, no murmur, + pertinent finding ( LE edema) Abdomen/GI: normal bowel sounds, non tender, soft, no organomegaly Back: normal inspection Extremities/Musculoskelatal: no calf tenderness, normal capillary refill, + pedal edema Neurologic/Psych: no motor/sensory deficits, normal mood/affect, oriented x 3, + depressed affect Skin: normal color, warm/dry, no rash Diagnostics Laboratory Results Results Past 24 Hours Test 04/20/17 12:40 04/20/17 14:05 Range/Units White Blood Count 12.90 4.8-10.8 K/uL Red Blood Count 4.12 4.2-5.4 M/uL Hemoglobin 13.0 12.0-16.0 g/dL Hematocrit 37.7 37-47 % Mean Corpuscular Volume 91.5 80-100 fL Mean Corpuscular Hemoglobin 31.6 25-34 pg Mean Corpuscular Hemoglobin Concent 34.5 32-36 g/dl Platelet Count 376 130-400 K/uL Mean Platelet Volume 8.8 7.4-10.4 fL Neutrophils (%) (Auto) 83.3 % Lymphocytes (%) (Auto) 9.0 % Monocytes (%) (Auto) 6.4 % Eosinophils (%) (Auto) 0.8 % Basophils (%) (Auto) 0.2 % Neutrophils # (Auto) 10.76 1.4-6.5 K/uL Lymphocytes # (Auto) 1.16 1.2-3.4 K/uL Monocytes # (Auto) 0.82 0.11-0.59 K/uL Eosinophils # (Auto) 0.10 0-0.5 K/uL Basophils # (Auto) 0.02 0-0.2 K/uL RDW Standard Deviation 41.3 36.4-46.3 fL RDW Coefficient of Variation 12.7 11.5-14.5 % Immature Granulocyte % (Auto) 0.3 % Immature Granulocyte # (Auto) 0.04 0.00-0.02 K/uL Venous Blood pH 7.45 7.36-7.41 Venous Blood Partial Pressure CO2 78 38.0-50.0 mmHg Venous Blood Partial Pressure O2 43 mmHg Venous Blood HCO3 52 mmol/L Venous Blood Oxygen Saturation 79.0 % Venous Blood Base Excess 23.5 mEq/L Sodium Level 132 136-145 mmol/L Potassium Level 2.6 3.5-5.1 mmol/L Chloride Level 79 98-107 mmol/L Carbon Dioxide Level 52 21-32 mmol/L Anion Gap 1.0 3-11 mmol/L Blood Urea Nitrogen 15 7-18 mg/dl Creatinine 1.10 0.60-1.20 mg/dl Est Creatinine Clear Calc Drug Dose 57.7 ml/min Estimated GFR () 63.2 Estimated GFR (Non- 54.5 BUN/Creatinine Ratio 13.3 10-20 Random Glucose 212 70-99 mg/dl Calcium Level 10.0 8.5-10.1 mg/dl Magnesium Level 2.3 1.8-2.4 mg/dl Troponin I 0.022 0-0.045 ng/ml Pro-B-Type Natriuretic Peptide 1718 0-900 pg/ml Prothrombin Time 24.2 9.0-12.0 SECONDS Prothromb Time International Ratio 2.2 0.9-1.1 Microbiology Results 04/20/17 Blood Culture, Received Pending 04/20/17 Blood Culture, Received Pending EKG sinus, RBBB, 1st degree av block, occasional PVC Impression Assessment and Plan ACUTE ON CHRONIC HYPERCAPNIC HYPOXIC RESPIRATORY FAILURE: -most likely multifactorial due to CHF, COPD, pulmonary HTN, polypharmacy -goal to maintain saO2 88-92% -IV lasix given in the ER, may repeat tonight -Nebs, Steroids, Lasix -CXR: no pneumonia -ABGs: CO2 retention more than prior admissions -consult Pulmonary PROBABLE CHF EXACERBATION: -has known diastolic HF with preserved EF -CXR: pulmonary congestion -place back on PO lasix + metolazone -continue Bipap overnight and recheck labs and ABG in AM -has a significant history of noncompliance COPD: with probable exacerbation -at baseline is on Oxygen 3 L at home -has a history of non compliance with oxygen -Duo Nebs, IV solu-medrol, advair continued CHRONIC PAIN SYNDROME: -on Fentanyl patch 50 mcg q 72 hours -avoid IV narcotics -also on PO oxycodone prn for severe pain only -maybe contributing to patient hypercapnia ATRIAL FIBRILLATION AND PRIOR MITRAL VALVE REPAIR -for which the patient is on coumadin -in normal sinus rhythm -on Metoprolol -INR therapeutic at 2.2 DEPRESSION/BIPOLAR DISORDER: -stable -continue with home medications DM TYPE II: -has previously been difficult to control -given addition of steroids, will consult [facility] for their assistance -on lantus + correction insulin at home HTN: -stable -continue with home medications HYPOTHYROIDISM: -On levothyroxine, TSH normal DARIUS: -is supposed to be on CPAP at home, unclear if compliant GERD: -on protonix VTE Prophylaxis VTE Risk Assessment Done? Y/N: Yes Risk Level: Moderate
[2017-04-20] MEDS ORDERED: LORAZEPAM 0.5 MG TAB PO PRN (16:30)
[2017-04-20] MEDS ORDERED: LOPERAMIDE HCL 2 MG CAP PO PRN (16:30)
[2017-04-20] MEDS ORDERED: EPINEPHRINE ADULT AUTO-INJECT 0.3 MG SYR IM PRN (16:30)
[2017-04-20] MEDS ORDERED: GLUCOSE 40% GEL 15 GM TUBE PO PRN (17:15)
[2017-04-20] MEDS ORDERED: GLUCOSE 10 TABS/TUBE PO PRN (17:15)
[2017-04-20] MEDS ORDERED: GLUCAGON FOR INJ 1 MG VIAL SQ PRN (17:15)
[2017-04-20] MEDS ORDERED: DEXTROSE 50% 50 ML SYR IV PRN (17:15)
[2017-04-20] MEDS ORDERED: WARFARIN SOD 5 MG TAB PO SCH (18:00)
[2017-04-20] MEDS ORDERED: PHARMACY GLYCEMIC MGMT CONSULT SCH (18:03)
--- NOTE | 2017-04-20 18:36 | Pharmacy Progress Note ---
Glycemic Control Intl Consult Date of Service Apr 20, 2017. Scope Glycemic Pharmacist consulted by Dr Hedrick on 04/20/17 for glycemic control and to write orders per [facility] inpatient glycemic control protocol Objective Weight (Kilograms): 85.800 Accuchecks BSG (last 24hrs): Test 04/20/17 12:40 Random Glucose 212 mg/dl (70-99) blood sugar now at 1830 = 343mg/dL Laboratory Data (last 24hrs) Test 04/20/17 12:40 Anion Gap 1.0 mmol/L BUN/Creatinine Ratio 13.3 Blood Urea Nitrogen 15 mg/dl Creatinine 1.10 mg/dl Potassium Level 2.6 mmol/L Sodium Level 132 mmol/L White Blood Count 12.90 K/uL Red Blood Count 4.12 M/uL Hemoglobin 13.0 g/dL Hematocrit 37.7 % Mean Corpuscular Volume 91.5 fL Mean Corpuscular Hemoglobin 31.6 pg Mean Corpuscular Hemoglobin Concent 34.5 g/dl Platelet Count 376 K/uL Mean Platelet Volume 8.8 fL Neutrophils (%) (Auto) 83.3 % Lymphocytes (%) (Auto) 9.0 % Monocytes (%) (Auto) 6.4 % Eosinophils (%) (Auto) 0.8 % Basophils (%) (Auto) 0.2 % Neutrophils # (Auto) 10.76 K/uL Lymphocytes # (Auto) 1.16 K/uL Monocytes # (Auto) 0.82 K/uL Eosinophils # (Auto) 0.10 K/uL Basophils # (Auto) 0.02 K/uL Recent Pertinent Medications Outpatient Anti-diabetic Regimen: * Lantus 36 units BID * Novolog * A1c = 11.8 % 04/06/17 Risk Factors for Insulin Resistance: * Steroids: Solu-medrol - 125mg IV x1 today at 1300, then 40mg IV Q8H * Infection: ? * Diet:Type 2 DM Assessment & Plan ASSESSMENT: * 61 year old female with uncontrolled type 2 DM, known to glycemic service from admission last month, and also on steroids at that time. * Admitted with SOB, possible COPD exacerbation? * BSG on admission = 212mg/dL, now up to 343mg/dL d/t IV solu-medrol * I will begin patient on similar regimen that patient was on last month and check blood sugar overnight d/t IV steroids * Patient did require IV doses of regular insulin last admission. I will see how patient responds to Novolog for BSG of 343mg/dL and give IV dose if BSG at 2100 > 250mg/dL. * ADA & AACE recommend a goal blood sugar range 140-180 mg/dl for the majority of critically ill & non-critically ill patients. However, more stringent targets may be selected in individual cases. Will start patient on range of 110- 140mg/dL for patient's age and co-morbidities. PLAN FOR INPATIENT GLYCEMIC CONTROL: * Basal insulin with LANTUS 40 units SQ BID * Correctional Insulin with NOVOLOG per scale ACHS or Q6hrs while NPO and overnight 00:00 and 04:00 * Goal Range: Low 110 mg/dL - High 140 mg/dL * Correction Factor: 10 mg/dL/unit * Nutritional / Prandial insulin per carb ratio of 1 unit per 3 grams CHO consumed * Please note that the plan above was derived based on current level of insulin resistance and hospital stress. These recommendations are appropriate for inpatient admission only. Plan of care upon discharge will need to be reassessed to avoid potential outpatient hypo/hyperglycemia. Thank you.
[2017-04-20] MEDS: ALBUT/IPRATROP 3MG/0.5MG NEB 3 ML VIAL INH SCH (19:02)
[2017-04-20] MEDS: INSULIN ASPART 100 UNITS/ML 3 ML PEN SC SCH ×2 (19:02→21:36)
[2017-04-20] MEDS ORDERED: INSULIN HUMAN REGULAR PER UNIT 5 UNITS in SYRINGE 4.95 ML IV SCH (20:45)
[2017-04-20] MEDS ORDERED: INSULIN GLARGINE SOLOSTAR 100 UNITS/ML 3 ML PEN SC SCH (21:00)
[2017-04-20] MEDS ORDERED: RANITIDINE HCL 150 MG TAB PO SCH (21:00)
[2017-04-20] MEDS ORDERED: ATORVASTATIN 40 MG TAB PO SCH (21:00)
[2017-04-20] MEDS ORDERED: TRAZODONE HCL 100 MG TAB PO SCH (21:00)
[2017-04-20] MEDS: AMITRIPTYLINE HCL 50 MG TAB PO SCH (21:31)
[2017-04-20] MEDS: FLUTICASONE/SALMETEROL 250/50 (ADVAIR) 14 PUFF/1 INHALER INH SCH (21:31)
[2017-04-20] MEDS: POTASSIUM CHLORIDE 20 MEQ TABCR PO SCH (21:32)
[2017-04-20] MEDS: GABAPENTIN 800 MG TAB PO SCH (21:32)
[2017-04-20] MEDS: FUROSEMIDE 40 MG TAB PO SCH (21:32)
[2017-04-20] MEDS: OLANZAPINE 2.5 MG TAB PO SCH (21:33)
[2017-04-20] MEDS: METHYLPREDNISOLONE IV 40 MG in SYRINGE 0 ML IV SCH (21:33)
[2017-04-20] MEDS: INSULIN GLARGINE SOLOSTAR 100 UNITS/ML 3 ML PEN SC SCH (21:37)
[2017-04-20] MEDS: METOPROLOL TARTRATE 25 MG TAB PO SCH (21:39)
[2017-04-20] MEDS: METOCLOPRAMIDE HCL 5 MG TAB PO SCH (21:59)
[2017-04-21] VITALS (18 sets, daily range): BP systolic 124–135; BP diastolic 48–68; PULSE 65–86; TEMP 36.1–37.4; O2SAT 91–99
[2017-04-21] MEDS: INSULIN ASPART 100 UNITS/ML 3 ML PEN SC SCH ×7 (00:13→23:57)
[2017-04-21] MEDS: CHECK FENTANYL PATCH PLACEMENT SCH ×4 (00:14→23:12)
[2017-04-21] MEDS: METHYLPREDNISOLONE IV 40 MG in SYRINGE 0 ML IV SCH ×3 (06:11→21:58)
[2017-04-21] MEDS: METOCLOPRAMIDE HCL 5 MG TAB PO SCH (06:11)
[2017-04-21] MEDS ORDERED: LEVOTHYROXINE 50 MCG TAB PO SCH (06:30)
[2017-04-21] MEDS: ALBUT/IPRATROP 3MG/0.5MG NEB 3 ML VIAL INH SCH ×4 (07:09→19:52)
[2017-04-21 07:13] LABS: INR 1.7 (0.9-1.1); PROTHROMBIN TIME (PATIENT) 18.1 SECONDS (9.0-12.0)
--- NOTE | 2017-04-21 07:17 | DIAGNOSTIC IMAGING REPORT ---
CHEST ONE VIEW PORTABLE CLINICAL HISTORY: CHF COMPARISON STUDY: 04/20/2017 FINDINGS: The heart is mildly enlarged. A valvular prosthesis is visualized. There is mild pulmonary vascular congestion. Left hemidiaphragm is ill-defined suggesting left pleural effusion and/or left basilar atelectasis/consolidation.[ IMPRESSION: Stable findings. Mild pulmonary vascular congestion. Ill-definition of the left hemidiaphragm suggesting a left pleural effusion and/or left basilar atelectasis/consolidation Electronically signed by: Cesar Lopez M.D. 04/21/2017 7:16 AM Dictated Date/Time: 04/21/2017 7:15 AM
[2017-04-21 07:20] LABS: BLOOD UREA NITROGEN 20 mg/dl (7-18); CALCIUM 9.2 mg/dl (8.5-10.1); CHLORIDE 86 mmol/L (98-107); GLUCOSE 152 mg/dl (70-99); POTASSIUM 2.9 mmol/L (3.5-5.1); SODIUM 135 mmol/L (136-145)
[2017-04-21 07:26] LABS: CHOLESTEROL 131 mg/dl (0-200); CHOLESTEROL/HDL RATIO 1.9; HDL CHOLESTEROL 69 mg/dl; LDL CHOLESTEROL CALCULATED 47 mg/dl; TRIGLYCERIDES 73 mg/dl (0-150); VERY LOW DENSITY LIPOPROT CALC 15 mg/dl
[2017-04-21 07:36] LABS: CARBON DIOXIDE 48 mmol/L (21-32)
[2017-04-21] MEDS: INSULIN GLARGINE SOLOSTAR 100 UNITS/ML 3 ML PEN SC SCH ×2 (08:29→20:38)
[2017-04-21] MEDS: FLUTICASONE/SALMETEROL 250/50 (ADVAIR) 14 PUFF/1 INHALER INH SCH ×2 (08:55→20:23)
[2017-04-21] MEDS: FUROSEMIDE 40 MG TAB PO SCH (08:56)
[2017-04-21] MEDS: CALCITRIOL 0.25 MCG CAP PO SCH (08:56)
[2017-04-21] MEDS: POTASSIUM CHLORIDE 20 MEQ TABCR PO SCH (08:56)
[2017-04-21] MEDS: VENLAFAXINE HCL XR 75 MG CAPXR PO SCH (08:56)
[2017-04-21] MEDS: AMLODIPINE BESYLATE 5 MG TAB PO SCH (08:57)
[2017-04-21] MEDS: GABAPENTIN 800 MG TAB PO SCH ×3 (08:57→20:23)
[2017-04-21] MEDS: METOPROLOL TARTRATE 25 MG TAB PO SCH ×2 (08:58→20:24)
[2017-04-21] MEDS ORDERED: FENTANYL PATCH REMOVE & WASTE SCH (08:59)
[2017-04-21] MEDS ORDERED: PANTOprazole SOD 40 MG TAB PO SCH (09:00)
[2017-04-21] MEDS ORDERED: CETIRIZINE HCL 10 MG TAB PO SCH (09:00)
[2017-04-21] MEDS ORDERED: METOLAZONE 2.5 MG TAB PO SCH (09:00)
[2017-04-21] MEDS ORDERED: FENTANYL 50 MCG/HR TDSY TD SCH (09:00)
[2017-04-21] MEDS ORDERED: MULTIVITAMIN TAB PO SCH (09:00)
[2017-04-21] MEDS: POTASSIUM CHLR 10 MEQ / WTR 10 MEQ in PREMIXED WATER 100 ML IV SCH ×4 (09:21→13:04)
[2017-04-21] MEDS ORDERED: POTASSIUM CHLORIDE 20 MEQ TABCR PO ONE ×2 (09:30→16:30)
[2017-04-21 09:48] LABS: HEMATOCRIT 37.6 % (37-47); MEAN CORPUSCULAR HEMOGLOBIN 31.3 pg (25-34); MEAN CORPUSCULAR HGB CONC 33.2 g/dl (32-36); MEAN PLATELET VOLUME 8.5 fL (7.4-10.4); PLATELET COUNT 388 K/uL (130-400); WHITE BLOOD COUNT 16.29 K/uL (4.8-10.8)
--- NOTE | 2017-04-21 12:12 | Pharmacy Progress Note ---
Glycemic Control Progress Note Date of Service Apr 21, 2017. Scope Glycemic Pharmacist consulted for glycemic control to write orders per [facility] inpatient glycemic control protocol. Objective Accuchecks BSG (last 24hrs): Test 04/20/17 12:40 04/20/17 18:17 04/20/17 20:34 04/21/17 00:06 Random Glucose 212 mg/dl (70-99) Bedside Glucose 343 mg/dl (70-90) 392 mg/dl (70-90) 221 mg/dl (70-90) Test 04/21/17 04:08 04/21/17 06:21 04/21/17 07:52 Bedside Glucose 172 mg/dl (70-90) 165 mg/dl (70-90) Random Glucose 152 mg/dl (70-99) Recent Pertinent Medications The patient is currently receiving: * Basal insulin: Lantus 45 units every 12 hours * Correctional Insulin: Novolog Correction per scale ACHS Goal Range: Low 110 mg/dL - High 140 mg/dL Correction Factor: 10 mg/dL/unit * Prandial insulin: Per carb ratio of 1 unit per 3 grams CHO consumed Outpatient Anti-Diabetic Meds Lantus 36 units SQ BID Novolog as directed Assessment & Plan ASSESSMENT: * See progress note from 04/20/17 for more background info, in short: Ms Minaya is a well-known diabetic who was admitted for a acute on chronic hypercarbic respiratory failure. * Pt receiving SQ basal bolus insulin regimen for hyperglycemia secondary to baseline DM (outpatient regimen on hold), possible infection with acute on chronic respiratory failure, and Solu-Medrol IV (125 mg IV x 1 yesterday and now 40 mg IV q8 hours) * Patient is currently receiving an average of ? units of insulin per day ( received 114 units SQ and 5units IV) * 45 units of basal insulin * 69 units of prandial/correctional insulin * BSGs ranging 221 - 392 mg/dl over the past 24hrs * Changes needed to insulin regimen: * AM Fasting BSG = 165 mg/dl. This is in slightly above goal range for patient based on inpatient targets and co-morbidities. Even though this is above goal range, will continue Lantus 45 units SQ BID. Last hospitalization it was determined that the patient's true basal was Lantus 40 units SQ BID. I am not comfortable increasing above 45 units twice daily until prandial insulin has been pushed further. * Post-prandial BSGs are elevated therefore need to tighten CF/CR. Last night, very tight parameters were started and the patient's blood sugars dropped rapidly. Patient also received 5 units of IV regular insulin. The parameters were loosened slightly for breakfast. However, during the last hospitalized, the patient tolerated this parameter while on PO prednisone. Lunch blood sugar was significantly elevated compared to breakfast so parameters re-tightened. Will continue overnight accuchecks to ensure adequate glucose control. * Total daily dose = estimated to be around 150 units based upon previous admissions. PLAN FOR INPATIENT GLYCEMIC CONTROL: * Continuing Lantus 45 units SQ BID * Continuing correction factor of 9 mg/dl/unit * Continuing carb ratio of 1 unit per 2.5 grams CHO consumed * Continuing goal range to Low 110 mg/dL - High 140 mg/dL RECOMMENDATIONS FOR DISCHARGE: * Continue to titrate outpatient regimen to goal HbA1C. Recommend a 50/50 split with basal-bolus insulin. * Please note that the plan above was derived based on current level of insulin resistance and hospital stress. These recommendations are appropriate for inpatient admission only. Plan of care upon discharge will need to be reassessed to avoid potential outpatient hypo/hyperglycemia. Thank you.
[2017-04-21] MEDS ORDERED: ACETAMINOPHEN IV 650 MG in EMPTY BAG 0 ML IV PRN (16:00)
[2017-04-21 16:49] LABS: IPAP 14; ISTAT ALLEN TEST Pass; ISTAT ARTERIAL BLOOD GAS HCO3 54 meq/L (19-24); ISTAT ARTERIAL BLOOD GAS PCO2 61 mmHg (35-46); ISTAT ARTERIAL BLOOD GAS PO2 46 mmHg (80-95); ISTAT ARTERIAL BLOOD GAS pH 7.56 (7.35-7.45); ISTAT CARBON DIOXIDE < 5 mEq/l (24-31); ISTAT DELIVERY SYSTEM BIPAP; ISTAT FIO2 25 %; ISTAT RATE 18; ISTAT SITE L Radial; ISTATART BLOOD GAS BASE EXCESS > 30.0 meq/L (-9-1.8)
--- NOTE | 2017-04-21 16:57 | PULMONARY CONSULTATION ---
DATE OF CONSULTATION: 04/21/2017 TIME: 04:00 p.m. REPORT OF CONSULTATION: The patient was seen in room 283, bed 2. She is a 61-year-old female, who came to the Emergency Room yesterday with a 3-day history of increasing shortness of breath. She complained of fatigue. She had reported having fevers and chills. She reported chest pain. She complained of a dry cough. She was anxious. The patient recently was hospitalized from April 05 through April 10 with respiratory failure at that time. She was treated for COPD with exacerbation. She was thought to also have acute CHF. The patient did have a blood gas done during that hospital stay on the 05 of April and the pH was 7.41 with a pCO2 of 54 and a pO2 of 57. Reportedly, the patient has been noncompliant. The hospitalist team had wanted her to stay 1 extra day, but she declined. She did not follow up with her family doctor she was supposed to. She has oxygen at home, but it is unclear if she was compliant with the oxygen or not. The patient is a very poor historian. She is quite lethargic. I could awaken her, but she kept falling asleep at brief intervals as I was trying to examine her. She states she feels more sluggish and tired than she did at the time of the other hospital stay. She thinks her breathing may be a little better today. She tells me today that she does not have any cough or sputum production. She denies chest pains today. She has not had any fevers since admission. The patient has a longstanding history of smoking. Reportedly, she has smoked a pack per day for 45 years. Although the patient admits to 1 pack per day, the patient's nurse tells me that the family has told her that she smokes 2 or 3 packs per day they felt. Alcohol use was denied by the patient. PAST MEDICAL HISTORY: 1. Atrial fibrillation. 2. Bipolar disorder. 3. C. diff infection. 4. Chronic abdominal pain. 5. DVT. 6. Diabetes mellitus. 7. Reflux. 8. Gastroparesis. 9. Hypertension. 10. Hypothyroidism. 11. Sleep apnea diagnosed in 2008, but she stopped using her BiPAP years ago. She had been on BiPAP 27/06. Her apnea-hypopnea index at the time of her initial study was 21.6. PAST SURGICAL HISTORY: 1. Hysterectomy. 2. Appendectomy. 3. Cholecystectomy. 4. Lumpectomy 5. Mitral valve repair in 2004. 6. Tubal ligation. 7. Umbilical hernia repair. FAMILY HISTORY: Mother had hypertension and diabetes. Sister has Crohn's disease. ALLERGIES: LISTED ALLERGIES TO LISINOPRIL, METRONIDAZOLE, ALPRAZOLAM, LACTOSE, PREDNISONE, COLESEVELAM, AND LITHIUM. IT IS UNKNOWN HOW MANY OF THESE ARE TRUE ALLERGIES VERSUS SIDE EFFECTS. REVIEW OF SYSTEMS: This was essentially unobtainable as the patient kept falling asleep as I was examining her. PHYSICAL EXAMINATION: GENERAL: The patient is a 61-year-old female who was cooperative. She was lethargic. She was able to tell me what year was. She told me thought it was March rather than April. She was able to tell me that it was Friday. HEENT: Eye exam suggested prior cataract surgeries. The pupils were reactive. Nasal cannula oxygen was in place. Mouth exam showed dentures on top and an absence of teeth on the bottom. NECK: Palpation of and neck reveals no lymph nodes or masses. CHEST: Showed normal development. HEART: Rate is 80 beats per minute. There are occasional to at times frequent extrasystoles. Then, on telemetry, would look to be supraventricular premature contractions. Most recent blood pressure is 125/68. LUNGS: Auscultation of the lung mills revealed diminished breath sounds. It was hard to get the patient to take deep breaths. The aeration was definitely better on the right lung than it was in the left lung. Mild rales were heard on the left. ABDOMEN: Soft. There were scars from prior surgery. Bowel sounds were present. There was no tenderness to palpation or masses. EXTREMITIES: Showed no cyanosis, clubbing or edema. Oxygen saturation was 95% with the BiPAP on. The BiPAP was removed, however, for my exam. The patient had 2 chest x-rays. These both show loss of definition of the left hemidiaphragm. This could be related to an effusion or atelectasis versus consolidation. A valvular prosthesis was noted. LABORATORY DATA: White count yesterday was 12.9. Today, it is 16.29. Hemoglobin was 13 yesterday and 12.5 today. Platelets today 388,000. INR today is 1.7 and yesterday had been 2.2. Venous blood gas done yesterday showed a pH of 7.45 with a pCO2 of 78 and a pO2 of 43. Electrolytes showed sodium 135, potassium 2.9, chloride 86, and bicarbonate 48. They were done today. Yesterday, the CO2 on the lytes had been 52. ProBNP yesterday was 1718. Troponin was 0.022. The BUN today is 20 with a creatinine of 1.1. IMPRESSION: 1. Respiratory failure -- acute -- with hypoxia and hypercarbia. 2. Chronic obstructive pulmonary disease with exacerbation. 3. Congestive heart failure. 4. Obstructive sleep apnea -- untreated. RECOMMENDATIONS: The patient is very lethargic. I believe she needs an arterial blood gas. If her pH is definitively abnormal and if her pCO2 is severely elevated, she likely should go to an intensive care unit. I would continue the BiPAP. Her pressures reportedly are 14/6. Depending upon her blood gas, if she is still retaining large amount, would consider increasing the BiPAP perhaps up to 16/10. She is on methylprednisolone. The dose currently is 40 mg IV q. 8 hours. I believe she likely should be on an antibiotic for an exacerbation of COPD. These suggestions were discussed with Dr. Humphrey of the hospitalist team. We should try to get her restarted on her BiPAP after discharge if at all possible. It remains to be seen how cooperative the patient will be. VAHID
[2017-04-21] MEDS: WARFARIN SOD 7.5 MG TAB PO SCH (16:59)
[2017-04-21] MEDS ORDERED: FUROSEMIDE INJ 40 MG in SYRINGE 0 ML IV SCH (17:00)
[2017-04-21 17:56] LABS: BUN/CREATININE RATIO 12.6 (10-20); CALCIUM 9.7 mg/dl (8.5-10.1); CREATININE 1.9 mg/dl (0.60-1.20)
[2017-04-21 17:59] LABS: POTASSIUM 3.6 mmol/L (3.5-5.1)
[2017-04-21] MEDS: DOXYCYCLINE IV 100 MG in DEXTROSE 5% 100ML 100 ML IV SCH (19:40)
[2017-04-21] MEDS: AMITRIPTYLINE HCL 50 MG TAB PO SCH (20:24)
[2017-04-21] MEDS: OLANZAPINE 2.5 MG TAB PO SCH (20:24)
--- NOTE | 2017-04-21 23:13 | Progress Note ---
Medicine Progress Note Date & Time of Visit: Apr 21, 2017 at 15:14. Subjective 61 yo F with oxygen-dependent COPD presents with 3 days of worsening dyspnea and admitted for COPD exacerbation pt is very somnolent during my examination could not get many answers out of her before she would fall asleep again denies any pain and feels she is breathing better cannot remember anything about instructions to followup with her PCP on discharge last admission Objective Last 8 Hrs Date Time Temp Pulse Resp B/P (MAP) Pulse Ox O2 Delivery O2 Flow Rate FiO2 04/21/17 12:07 BiPAP 30 04/21/17 11:12 36.9 70 18 125/68 (87) 98 04/21/17 11:11 66 96 30 04/21/17 11:10 66 19 96 BiPAP/CPAP 30 04/21/17 08:50 86 135/67 (89) 04/21/17 08:50 95 Nasal Cannula 6.0 04/21/17 08:00 BiPAP 30 04/21/17 07:25 37.0 76 19 124/56 (78) 91 Physical Exam: GEN: WNWD, in no acute distress, somnolent, BIPAP at bedside HEENT: NC/AT, pupils equal and bilateral, MMM, normal sclerae CARDIO: reg rate, S1/2 heard without m/g/r LUNGS: CTA bilaterally, no crackles, rales or wheezes, good diaphragmatic excursion ABD: soft, non-tender, non-distended, no rebound or guarding, +BS EXTREMITY: RP and DP palpable 2+ bilat, no LE swelling or edema, extremities are warm and well-perfused NEURO: could not be examined as she was continuing to fall asleep MUSC: moves all extremities equally. SKIN: warm and dry Laboratory Results: 04/21/17 09:28 04/21/17 16:56 Test 04/20/17 12:40 04/21/17 06:21 04/21/17 09:28 04/21/17 16:17 Immature Granulocyte % (Auto) 0.3 % White Blood Count 12.90 K/uL (4.8-10.8) Red Blood Count 4.12 M/uL (4.2-5.4) 4.00 M/uL (4.2-5.4) Hemoglobin 13.0 g/dL (12.0-16.0) Hematocrit 37.7 % (37-47) Mean Corpuscular Volume 91.5 fL (80-100) 94.0 fL (80-100) Mean Corpuscular Hemoglobin 31.6 pg (25-34) 31.3 pg (25-34) Mean Corpuscular Hemoglobin Concent 34.5 g/dl (32-36) 33.2 g/dl (32-36) Platelet Count 376 K/uL (130-400) Mean Platelet Volume 8.8 fL (7.4-10.4) 8.5 fL (7.4-10.4) Neutrophils (%) (Auto) 83.3 % Lymphocytes (%) (Auto) 9.0 % Monocytes (%) (Auto) 6.4 % Eosinophils (%) (Auto) 0.8 % Basophils (%) (Auto) 0.2 % Neutrophils # (Auto) 10.76 K/uL (1.4-6.5) Lymphocytes # (Auto) 1.16 K/uL (1.2-3.4) Monocytes # (Auto) 0.82 K/uL (0.11-0.59) Eosinophils # (Auto) 0.10 K/uL (0-0.5) Basophils # (Auto) 0.02 K/uL (0-0.2) Immature Granulocyte # (Auto) 0.04 K/uL (0.00-0.02) Venous Blood pH 7.45 (7.36-7.41) Venous Blood Partial Pressure CO2 78 mmHg (38.0-50.0) Venous Blood Partial Pressure O2 43 mmHg Venous Blood HCO3 52 mmol/L Venous Blood Oxygen Saturation 79.0 % Venous Blood Base Excess 23.5 mEq/L Pro-B-Type Natriuretic Peptide 1718 pg/ml (0-900) Prothrombin Time 18.1 SECONDS (9.0-12.0) Prothromb Time International Ratio 1.7 (0.9-1.1) Magnesium Level 2.7 mg/dl (1.8-2.4) Total Creatine Kinase 89 U/L (26-192) Creatine Kinase MB < 0.5 ng/ml (0.5-3.6) Creatine Kinase MB Ratio (0-3.0) Troponin I < 0.015 ng/ml (0-0.045) Triglycerides Level 73 mg/dl (0-150) Cholesterol Level 131 mg/dl (0-200) HDL Cholesterol 69 mg/dl LDL Cholesterol, Calculated 47 mg/dl VLDL Cholesterol, Calculated 15 mg/dl Cholesterol/HDL Ratio 1.9 RDW Standard Deviation 45.4 fL (36.4-46.3) RDW Coefficient of Variation 13.5 % (11.5-14.5) Blood Gas Sample Site L Radial Bedside Blood Gas pH (LAB) 7.56 (7.35-7.45) Bedside Blood Gas pCO2 (LAB) 61 mmHg (35-46) Bedside Blood Gas pO2 (LAB) 46 mmHg (80-95) Bedside Blood Gas HCO3 (LAB) 54 meq/L (19-24) Bedside Blood Gas Total CO2 < 5 mEq/l (24-31) Bedside Blood Gas Base Excess (LAB) > 30.0 meq/L (-9-1.8) Bedside Blood Gas O2 Saturation 85.0 % (90-95) Alexandr Test Pass Oxygen Delivery Device BIPAP Bedside Oxygen Rate (breaths/min) 18 Bedside FiO2 25 % Blood Gas IPAP 14 Test 04/21/17 16:56 04/21/17 20:20 Anion Gap -3.0 mmol/L (3-11) Est Creatinine Clear Calc Drug Dose 33.3 ml/min Estimated GFR () 32.6 Estimated GFR (Non- 28.2 BUN/Creatinine Ratio 12.6 (10-20) Calcium Level 9.7 mg/dl (8.5-10.1) Bedside Glucose 206 mg/dl (70-90) Date/Time Source Procedure Growth Status 04/20/17 15:22 Blood Blood Culture Pending Received Last 24 Hours Test 04/20/17 18:17 04/20/17 20:34 04/20/17 21:24 04/21/17 00:06 Bedside Glucose 343 mg/dl 392 mg/dl 221 mg/dl Total Creatine Kinase 138 U/L Creatine Kinase MB < 0.5 ng/ml Creatine Kinase MB Ratio Troponin I < 0.015 ng/ml Test 04/21/17 04:08 04/21/17 06:21 04/21/17 07:52 04/21/17 09:28 Bedside Glucose 172 mg/dl 165 mg/dl Prothrombin Time 18.1 SECONDS Prothromb Time International Ratio 1.7 Sodium Level 135 mmol/L Potassium Level 2.9 mmol/L Chloride Level 86 mmol/L Carbon Dioxide Level 48 mmol/L Anion Gap 1.0 mmol/L Blood Urea Nitrogen 20 mg/dl Creatinine 1.10 mg/dl Est Creatinine Clear Calc Drug Dose 57.6 ml/min Estimated GFR () 63.2 Estimated GFR (Non- 54.5 BUN/Creatinine Ratio 18.0 Random Glucose 152 mg/dl Calcium Level 9.2 mg/dl Magnesium Level 2.7 mg/dl Total Creatine Kinase 89 U/L Creatine Kinase MB < 0.5 ng/ml Creatine Kinase MB Ratio Troponin I < 0.015 ng/ml Triglycerides Level 73 mg/dl Cholesterol Level 131 mg/dl HDL Cholesterol 69 mg/dl LDL Cholesterol, Calculated 47 mg/dl VLDL Cholesterol, Calculated 15 mg/dl Cholesterol/HDL Ratio 1.9 White Blood Count 16.29 K/uL Red Blood Count 4.00 M/uL Hemoglobin 12.5 g/dL Hematocrit 37.6 % Mean Corpuscular Volume 94.0 fL Mean Corpuscular Hemoglobin 31.3 pg Mean Corpuscular Hemoglobin Concent 33.2 g/dl RDW Standard Deviation 45.4 fL RDW Coefficient of Variation 13.5 % Platelet Count 388 K/uL Mean Platelet Volume 8.5 fL Test 04/21/17 11:40 Bedside Glucose 244 mg/dl Date/Time Source Procedure Growth Status 04/20/17 15:22 Blood Blood Culture Pending Received Assessment & Plan 61 yo F with oxygen-dependent COPD presents with 3 days of worsening dyspnea and admitted for COPD exacerbation 1. Acute on chronic hypercapnic respiratory failure with hypoxia-cont IV steroids, nebs and added doxycycline at this time. Continuously on BIPAP-made her NPO and significantly reduced her pill burden--aspiration risk on the BIPAP. ABG tonight 7.56/61/46 with a baseline CO2 of 55 from last admission. Cont current BIPAP settings with oxygen support to keep saturation levels 88-92% . Appreciate pulm recs. 2. Severe hypokalemia-uncertain etiology. Poss related to diuretic use including both lasix and metolazone. Holding both. Possibly contributing to metabolic alkalosis. Low on istat after replacement this morning. PRP repeat revealed K 3.6. 40 MEQ PO more were given this afternoon. Recheck in am and replace as necessary. Cont to hold thiazide diuretic. 3. Metabolic alkalosis-likley 2.2 hypokalemia. Cont to treat #2 to help this issue. 4. Acute diastolic heart failure-compensated. Lasix held in setting of severe metabolic alkalosis 5. Noncompliance-reported noncompliance with multiple recommended therapies and follow-up plans on discharge. Agreed to HH at discharge and declined them when they attempted to come to her home. 6. Chronic pain syndrome. Cont Fentanyl patch. Considered that this may be contributing to her fatigue, however, she seemed to perk up on the BIPAP so will cont for now. 7. Afib-rate controlled on Metoprolol, slightly subtherapeutic on coumadin. Daily INR. 8. s/p mitral valve repair 9. Bipolar disporder-cont with 10. Acute leg fracture s/p fall at home-in Cam boot, pain appears controlled. Ortho as outpatient in two weeks. 11. 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 environmental educator nurse asked to revisit her this admission. Cont Glargine and reduced dose while NPO 12. HTN-controlled, cont home meds 13. Hypothyroidism-cont Synthroid 14. DARIUS-untreated at home 15. GERD-Protonix 16. Leukocytosis DVT prophy-coumadin Full Code Dispo-transferred to step down tele unit for closer monitoring while respiratory status and mental status are not at baseline. Ashleigh Humphrey DO [facility]: [facility]-Dr. Bland. Current Inpatient Medications: Current Inpatient Medications Medications (Trade) Dose Ordered Sig/Artemio Route Start Time Stop Time Status Last Admin Dose Admin Acetaminophen (Tylenol Tab) 650 mg Q4H PRN PO 04/20/17 15:30 05/20/17 15:29 Ondansetron HCl (Zofran Inj) 4 mg Q6H PRN IV 04/20/17 15:30 05/20/17 15:29 Polyethylene (Miralax Powder Packet) 17 gm DAILY PRN PO 04/20/17 15:30 05/20/17 15:29 Methylprednisolone Sodium Succinate 40 mg/Syringe 0.64 ml @ 1.5 mls/min Q8H IV 04/20/17 22:00 05/20/17 21:59 04/21/17 14:41 1.5 MLS/MIN Albuterol/ Ipratropium (Duoneb) 3 ml QIDR INH 04/20/17 20:00 05/20/17 19:59 04/21/17 11:08 3 ML Amitriptyline HCl (Elavil Tab) 50 mg HS PO 04/20/17 21:00 05/20/17 20:59 04/20/17 21:31 50 MG Atorvastatin Calcium (Lipitor Tab) 40 mg HS PO 04/20/17 21:00 05/20/17 20:59 04/20/17 21:32 40 MG Cetirizine HCl (zyrTEC TAB) 10 mg QAM PO 04/21/17 09:00 05/21/17 08:59 04/21/17 08:55 10 MG Epinephrine (Epipen) 0.3 mg UD PRN IM 04/20/17 16:30 05/20/17 16:29 Fentanyl (Duragesic Patch) 50 mcg Q72H TD 04/21/17 09:00 05/05/17 08:59 04/21/17 08:23 50 MCG Salmeterol Xinafoate/ Fluticasone (Advair Diskus 250/50 Inh) 1 puff BID INH 04/20/17 21:00 05/20/17 20:59 04/21/17 08:55 1 PUFF Furosemide (Lasix Tab) 40 mg BID17 PO 04/20/17 21:00 05/20/17 20:59 04/21/17 08:56 40 MG Gabapentin (Neurontin Tab) 800 mg TID PO 04/20/17 21:00 05/20/17 20:59 04/21/17 14:41 800 MG Levothyroxine Sodium (Synthroid Tab) 50 mcg DAILYBB PO 04/21/17 06:30 05/21/17 06:59 04/21/17 06:11 50 MCG Loperamide HCl (Imodium Cap) 2 mg BID PRN PO 04/20/17 16:30 05/20/17 16:29 Lorazepam (Ativan Tab) 0.5 mg HS PRN PO 04/20/17 16:30 05/20/17 16:29 Metolazone (Zaroxolyn Tab) 2.5 mg DAILY PO 04/21/17 09:00 05/21/17 08:59 04/21/17 08:58 2.5 MG Metoprolol Tartrate (Lopressor Tab) 75 mg BID PO 04/20/17 21:00 05/20/17 20:59 04/21/17 08:58 75 MG Multivitamins (Multivitamin Tab) 1 tab QAM PO 04/21/17 09:00 05/21/17 08:59 04/21/17 08:57 1 TAB Olanzapine (Zyprexa Tab) 2.5 mg HS PO 04/20/17 21:00 05/20/17 20:59 04/20/17 21:33 2.5 MG Pantoprazole Sodium (Protonix Tab) 40 mg DAILY PO 04/21/17 09:00 05/21/17 08:59 04/21/17 08:55 40 MG Potassium Chloride (Klor-Con Tab) 20 meq BID PO 04/20/17 21:00 05/20/17 20:59 04/21/17 08:56 20 MEQ Venlafaxine HCl (effeXOR EXTENDED REL CAP) 225 mg QAM PO 04/21/17 09:00 05/21/17 08:59 04/21/17 08:56 225 MG Warfarin Sodium (Coumadin Tab) 5 mg SuTh@1600 PO 04/20/17 18:00 05/20/17 17:59 04/20/17 18:55 5 MG Warfarin Sodium (Coumadin Tab) 7.5 mg MoTuWeFrSa@1600 PO 04/21/17 16:00 05/21/17 15:59 Amlodipine Besylate (Norvasc Tab) 10 mg QAM PO 04/21/17 09:00 05/21/17 08:59 04/21/17 08:57 10 MG Calcitriol (Rocaltrol Cap) 0.5 mcg MoWeFr@0900 PO 04/21/17 09:00 05/21/17 08:59 04/21/17 08:56 0.5 MCG Ranitidine HCl (zANTac TAB) 300 mg PM PO 04/20/17 21:00 05/20/17 20:59 04/20/17 21:33 300 MG Trazodone HCl (Desyrel Tab) 150 mg HS PO 04/20/17 21:00 05/20/17 20:59 04/20/17 21:37 150 MG Glucose (Glucose 40% Gel) 15-30 GRAMS 15 GRAMS... UD PRN PO 04/20/17 17:15 05/20/17 17:14 Glucose (Glucose Chew Tab) 4-8 Tablets 4 Tabl... UD PRN PO 04/20/17 17:15 05/20/17 17:14 Dextrose (Dextrose 50% 50ML Syringe) 25-50ML OF 50% DW IV FOR... UD PRN IV 04/20/17 17:15 05/20/17 17:14 Glucagon (Glucagon Inj) 1 mg UD PRN SQ 04/20/17 17:15 05/20/17 17:14 Miscellaneous Information (Consult Glycemic Management Pharmacy) 1 ea UD N/A 04/20/17 18:03 05/20/17 18:02 Miscellaneous (Fentanyl Patch Remove & Waste) 1 ea Q3D@0859 N/A 04/21/17 08:59 05/21/17 08:58 04/21/17 08:23 1 EA Miscellaneous Information (Check Fentanyl Patch Placement) 1 ea QS N/A 04/21/17 00:00 05/21/17 00:00 04/21/17 08:20 1 EA Insulin Aspart (novoLOG ASPART) SLIDING SCALE ACHS NH 04/20/17 18:30 05/20/17 18:29 04/21/17 12:22 22 UNITS Insulin Aspart (novoLOG ASPART) SLIDING SCALE 0000,0400 NH 04/21/17 00:00 05/21/17 00:00 04/21/17 04:10 4 UNITS Insulin Glargine (Lantus Solostar Pen) 45 units BID SC 04/20/17 21:00 05/20/17 20:59 04/21/17 08:29 45 UNITS
[2017-04-22] VITALS (20 sets, daily range): BP systolic 105–143; BP diastolic 44–88; PULSE 66–89; TEMP 36.4–37.2; O2SAT 94–100
[2017-04-22] MEDS: INSULIN ASPART 100 UNITS/ML 3 ML PEN SC SCH ×5 (03:42→21:43)
[2017-04-22 05:36] LABS: BASO % 0.1 %; BASO ABS # 0.01 K/uL (0-0.2); COMPLETE YES; HEMATOCRIT 38.6 % (37-47); IG% 0.3 %; LYMPH % 7.8 %; LYMPH ABS # 1.52 K/uL (1.2-3.4); MEAN CELL VOLUME 94.6 fL (80-100); MEAN CORPUSCULAR HEMOGLOBIN 31.4 pg (25-34); MEAN CORPUSCULAR HGB CONC 33.2 g/dl (32-36); MEAN PLATELET VOLUME 8.2 fL (7.4-10.4); MONO % 4.4 %; NEUT % 87.4 %; PLATELET COUNT 374 K/uL (130-400); RED BLOOD COUNT 4.08 M/uL (4.2-5.4); WHITE BLOOD COUNT 19.58 K/uL (4.8-10.8)
[2017-04-22] MEDS: METHYLPREDNISOLONE IV 40 MG in SYRINGE 0 ML IV SCH ×2 (05:40→13:21)
[2017-04-22] MEDS: DOXYCYCLINE IV 100 MG in DEXTROSE 5% 100ML 100 ML IV SCH (05:41)
[2017-04-22 05:44] LABS: ARTERIAL BLOOD GAS BASE EXCESS 19.9 mEq/L (-9-1.8); ARTERIAL BLOOD GAS HCO3 46 mmol/L (19-24); ARTERIAL BLOOD GAS PO2 71 mm/Hg (80-95); INR 1.9 (0.9-1.1); PROTHROMBIN TIME (PATIENT) 20.6 SECONDS (9.0-12.0)
[2017-04-22 05:58] LABS: ALLEN TEST POS (POS); O2 ADMINISTRATION 30%
[2017-04-22 06:00] LABS: BUN/CREATININE RATIO 18.6 (10-20); CALCIUM 9.4 mg/dl (8.5-10.1); CREATININE 1.4 mg/dl (0.60-1.20)
[2017-04-22 06:01] LABS: ARTERIAL BLOOD GAS pH 7.53 (7.35-7.45)
[2017-04-22] MEDS: ALBUT/IPRATROP 3MG/0.5MG NEB 3 ML VIAL INH SCH ×4 (08:02→19:00)
[2017-04-22] MEDS ORDERED: LEVOTHYROXINE 50 MCG TAB PO ONE (08:32)
[2017-04-22] MEDS ORDERED: LEVOTHYROXINE SODIUM INJ 25 MCG in SYRINGE 0 ML IV SCH (09:00)
[2017-04-22] MEDS: METOPROLOL TARTRATE 25 MG TAB PO SCH ×2 (09:16→21:38)
[2017-04-22] MEDS: PANTOprazole SOD 40 MG TAB PO SCH (09:16)
[2017-04-22] MEDS: FLUTICASONE/SALMETEROL 250/50 (ADVAIR) 14 PUFF/1 INHALER INH SCH ×2 (09:16→21:36)
[2017-04-22] MEDS: AMLODIPINE BESYLATE 5 MG TAB PO SCH (09:16)
[2017-04-22] MEDS: VENLAFAXINE HCL XR 75 MG CAPXR PO SCH (09:17)
[2017-04-22] MEDS: CHECK FENTANYL PATCH PLACEMENT SCH ×3 (09:18→23:58)
[2017-04-22] MEDS: GABAPENTIN 800 MG TAB PO SCH ×3 (09:18→21:37)
[2017-04-22] MEDS: INSULIN GLARGINE SOLOSTAR 100 UNITS/ML 3 ML PEN SC SCH ×2 (09:24→21:40)
[2017-04-22] MEDS ORDERED: PANTOprazole INJ 40 MG in SYRINGE 0 ML IV SCH (11:00)
[2017-04-22] MEDS: WARFARIN SOD 7.5 MG TAB PO SCH (15:48)
--- NOTE | 2017-04-22 17:29 | PULMONARY PROGRESS NOTE ---
DATE: 04/22/2017 TIME: 5:10 p.m. SUBJECTIVE: The patient is significantly improved today. She is awake, alert and seemingly oriented. She is quite talkative. She denies shortness of breath today. She states she coughed up a moderate amount of yellow sputum earlier today. She brought up the fact that she would like to get a CPAP at home again. She apparently actually had BiPAP a few years ago. This was based upon a sleep study done in approximately 2008 which showed moderate apnea with an apnea hypopnea index of 21.6. She states that she found the BiPAP to be fairly comfortable today. OBJECTIVE: GENERAL: The patient appeared comfortable at rest. Temperature was 37 degrees. EARS, NOSE, THROAT: Unremarkable. VITAL SIGNS: Heart rate was 84 per minute. She was still having extrasystoles. Blood pressure is 109/52. CHEST: Respiratory rate is 20 breaths per minute. Lung mills revealed the breath sounds to be decreased. There were just a few rhonchi heard bilaterally posteriorly. Saturation now is 98% on 3 liter nasal cannula. EXTREMITIES: Showed no cyanosis, clubbing or edema. LABORATORY DATA: The patient had a blood gas this morning that showed a pH of 7.53 with a pCO2 of 56 and a pO2 of 71 on 30% oxygen. I suspect the BiPAP was on at that time as well. Electrolytes today show sodium 135, potassium 4, chloride 87, and bicarbonate 46. BUN was 26 with a creatinine of 1.4. Prior BUN and creatinine were 24 and 1.9, respectively. Blood sugar today was as high as 292. IMPRESSIONS: 1. Respiratory failure - acute with hypoxia and hypercarbia - improved. 2. Chronic obstructive pulmonary disease with exacerbation. 3. Possible congestive heart failure. 4. Obstructive sleep apnea - untreated. 5. Metabolic alkalosis and respiratory acidosis - improved. COMMENTS AND RECOMMENDATIONS: The patient seems to be doing dramatically better. I would continue the BiPAP at least at night time. We will decrease the methylprednisolone to perhaps 20 mg IV q. 8 hours. I explained to the patient that she may well need to have a repeat sleep study. It is encouraging that she is anxious to do this, however. As much as possible, would try to limit the sedatives and narcotics.
[2017-04-22] MEDS ORDERED: ACETAMINOPHEN 325 MG TAB PO PRN (18:15)
[2017-04-22] MEDS: DOXYCYCLINE HYCLATE 100 MG CAP PO SCH (19:30)
[2017-04-22] MEDS: AMITRIPTYLINE HCL 50 MG TAB PO SCH (21:37)
[2017-04-22] MEDS: METHYLPREDNISOLONE IV 20 MG in SYRINGE 0 ML IV SCH (21:39)
[2017-04-22] MEDS: OLANZAPINE 2.5 MG TAB PO SCH (21:39)
--- NOTE | 2017-04-22 22:34 | Progress Note ---
Medicine Progress Note Date & Time of Visit: Apr 22, 2017 at 17:27. Subjective 61 yo F with oxygen-dependent COPD presents with 3 days of worsening dyspnea and admitted for COPD exacerbation -excited and happy, alert and oriented, family present in room -no dyspnea present -tolerating PO Objective Last 8 Hrs Date Time Temp Pulse Resp B/P (MAP) Pulse Ox O2 Delivery O2 Flow Rate FiO2 04/22/17 15:47 84 20 98 Nasal Cannula 3.0 04/22/17 12:00 Nasal Cannula 3.0 04/22/17 11:23 37.0 78 20 109/52 (71) 100 Humidified Oxygen Mask 04/22/17 11:18 72 20 97 Nasal Cannula 3.0 04/22/17 11:00 71 13 97 Nasal Cannula 3.0 Physical Exam: GEN: WNWD, in no acute distress, NC in place, Alert and appropriate. HEENT: NC/AT, pupils equal and bilateral, MMM, normal sclerae CARDIO: reg rate, S1/2 heard without m/g/r LUNGS: CTA bilaterally, no crackles, rales or wheezes, good diaphragmatic excursion ABD: soft, non-tender, non-distended, no rebound or guarding, +BS EXTREMITY: RP and DP palpable 2+ bilat, no LE swelling or edema, extremities are warm and well-perfused NEURO:CN 2-12 intact, no gross focal deficits. MUSC: moves all extremities equally. SKIN: warm and dry Laboratory Results: 04/22/17 05:20 Red Blood Count 4.08, Mean Corpuscular Volume 94.6, Mean Corpuscular Hemoglobin 31.4, Mean Corpuscular Hemoglobin Concent 33.2, Mean Platelet Volume 8.2, Neutrophils (%) (Auto) 87.4, Lymphocytes (%) (Auto) 7.8, Monocytes (%) (Auto) 4.4, Eosinophils (%) (Auto) 0.0, Basophils (%) (Auto) 0.1, Neutrophils # (Auto) 17.13, Lymphocytes # (Auto) 1.52, Monocytes # (Auto) 0.87, Eosinophils # (Auto) 0.00, Basophils # (Auto) 0.01 04/22/17 05:20 Test 04/20/17 12:40 04/21/17 06:21 04/21/17 16:17 04/22/17 05:20 Venous Blood pH 7.45 (7.36-7.41) Venous Blood Partial Pressure CO2 78 mmHg (38.0-50.0) Venous Blood Partial Pressure O2 43 mmHg Venous Blood HCO3 52 mmol/L Venous Blood Oxygen Saturation 79.0 % Venous Blood Base Excess 23.5 mEq/L Pro-B-Type Natriuretic Peptide 1718 pg/ml (0-900) Magnesium Level 2.7 mg/dl (1.8-2.4) Total Creatine Kinase 89 U/L (26-192) Creatine Kinase MB < 0.5 ng/ml (0.5-3.6) Creatine Kinase MB Ratio (0-3.0) Troponin I < 0.015 ng/ml (0-0.045) Triglycerides Level 73 mg/dl (0-150) Cholesterol Level 131 mg/dl (0-200) HDL Cholesterol 69 mg/dl LDL Cholesterol, Calculated 47 mg/dl VLDL Cholesterol, Calculated 15 mg/dl Cholesterol/HDL Ratio 1.9 Blood Gas Sample Site L Radial Bedside Blood Gas pH (LAB) 7.56 (7.35-7.45) Bedside Blood Gas pCO2 (LAB) 61 mmHg (35-46) Bedside Blood Gas pO2 (LAB) 46 mmHg (80-95) Bedside Blood Gas HCO3 (LAB) 54 meq/L (19-24) Bedside Blood Gas Total CO2 < 5 mEq/l (24-31) Bedside Blood Gas Base Excess (LAB) > 30.0 meq/L (-9-1.8) Bedside Blood Gas O2 Saturation 85.0 % (90-95) Oxygen Delivery Device BIPAP Bedside Oxygen Rate (breaths/min) 18 Bedside FiO2 25 % Blood Gas IPAP 14 White Blood Count 19.58 K/uL (4.8-10.8) Red Blood Count 4.08 M/uL (4.2-5.4) Hemoglobin 12.8 g/dL (12.0-16.0) Hematocrit 38.6 % (37-47) Mean Corpuscular Volume 94.6 fL (80-100) Mean Corpuscular Hemoglobin 31.4 pg (25-34) Mean Corpuscular Hemoglobin Concent 33.2 g/dl (32-36) Platelet Count 374 K/uL (130-400) Mean Platelet Volume 8.2 fL (7.4-10.4) Neutrophils (%) (Auto) 87.4 % Lymphocytes (%) (Auto) 7.8 % Monocytes (%) (Auto) 4.4 % Eosinophils (%) (Auto) 0.0 % Basophils (%) (Auto) 0.1 % Neutrophils # (Auto) 17.13 K/uL (1.4-6.5) Lymphocytes # (Auto) 1.52 K/uL (1.2-3.4) Monocytes # (Auto) 0.87 K/uL (0.11-0.59) Eosinophils # (Auto) 0.00 K/uL (0-0.5) Basophils # (Auto) 0.01 K/uL (0-0.2) RDW Standard Deviation 47.4 fL (36.4-46.3) RDW Coefficient of Variation 14.1 % (11.5-14.5) Immature Granulocyte % (Auto) 0.3 % Immature Granulocyte # (Auto) 0.05 K/uL (0.00-0.02) Prothrombin Time 20.6 SECONDS (9.0-12.0) Prothromb Time International Ratio 1.9 (0.9-1.1) Arterial Blood pH 7.53 (7.35-7.45) Arterial Blood Partial Pressure CO2 56 mmHg (35-46) Arterial Blood Partial Pressure O2 71 mm/Hg (80-95) Arterial Blood HCO3 46 mmol/L (19-24) Arterial Blood Oxygen Saturation 95.0 % (90-95) Arterial Blood Base Excess 19.9 mEq/L (-9-1.8) Arterial Blood Gas Delivery 30% Alexandr Test POS (POS) Anion Gap 2.0 mmol/L (3-11) Est Creatinine Clear Calc Drug Dose 44.8 ml/min Estimated GFR () 47.2 Estimated GFR (Non- 40.7 BUN/Creatinine Ratio 18.6 (10-20) Calcium Level 9.4 mg/dl (8.5-10.1) Test 04/22/17 20:47 Bedside Glucose 165 mg/dl (70-90) Date/Time Source Procedure Growth Status 04/20/17 15:22 Blood Blood Culture - Preliminary NO GROWTH TO DATE. Resulted Last 24 Hours Test 04/21/17 20:20 04/21/17 23:41 04/22/17 03:38 04/22/17 05:20 Bedside Glucose 206 mg/dl 218 mg/dl 231 mg/dl White Blood Count 19.58 K/uL Red Blood Count 4.08 M/uL Hemoglobin 12.8 g/dL Hematocrit 38.6 % Mean Corpuscular Volume 94.6 fL Mean Corpuscular Hemoglobin 31.4 pg Mean Corpuscular Hemoglobin Concent 33.2 g/dl Platelet Count 374 K/uL Mean Platelet Volume 8.2 fL Neutrophils (%) (Auto) 87.4 % Lymphocytes (%) (Auto) 7.8 % Monocytes (%) (Auto) 4.4 % Eosinophils (%) (Auto) 0.0 % Basophils (%) (Auto) 0.1 % Neutrophils # (Auto) 17.13 K/uL Lymphocytes # (Auto) 1.52 K/uL Monocytes # (Auto) 0.87 K/uL Eosinophils # (Auto) 0.00 K/uL Basophils # (Auto) 0.01 K/uL RDW Standard Deviation 47.4 fL RDW Coefficient of Variation 14.1 % Immature Granulocyte % (Auto) 0.3 % Immature Granulocyte # (Auto) 0.05 K/uL Prothrombin Time 20.6 SECONDS Prothromb Time International Ratio 1.9 Arterial Blood pH 7.53 Arterial Blood Partial Pressure CO2 56 mmHg Arterial Blood Partial Pressure O2 71 mm/Hg Arterial Blood HCO3 46 mmol/L Arterial Blood Oxygen Saturation 95.0 % Arterial Blood Base Excess 19.9 mEq/L Arterial Blood Gas Delivery 30% Alexandr Test POS Sodium Level 135 mmol/L Potassium Level 4.0 mmol/L Chloride Level 87 mmol/L Carbon Dioxide Level 46 mmol/L Anion Gap 2.0 mmol/L Blood Urea Nitrogen 26 mg/dl Creatinine 1.40 mg/dl Est Creatinine Clear Calc Drug Dose 44.8 ml/min Estimated GFR () 47.2 Estimated GFR (Non- 40.7 BUN/Creatinine Ratio 18.6 Random Glucose 180 mg/dl Calcium Level 9.4 mg/dl Test 04/22/17 06:10 04/22/17 11:21 04/22/17 15:46 04/22/17 16:25 Bedside Glucose 161 mg/dl 207 mg/dl 266 mg/dl 292 mg/dl Assessment & Plan 61 yo F with oxygen-dependent COPD presents with 3 days of worsening dyspnea and admitted for COPD exacerbation 1. Acute on chronic hypercapnic respiratory failure with hypoxia-cont IV steroids, nebs and added doxycycline at this time. Continued with BIPAP overnight and significant improvement this morning. Repeat ABG was 7.53/56/71 and she was easily weaned to 4 then 3L NC. Diet reordered and patient was speaking without conversational dyspnea. She had resolved to baseline hypoxia level. Reduced steroids to 20 IV per pulm. Cont doxy and nebs. 2. Severe hypokalemia-uncertain etiology. Resolved. Poss related to diuretic use including both lasix and metolazone. Holding both. Possibly contributing to metabolic alkalosis. Repeat K this morning was 4.0. 3. Metabolic alkalosis-likley 2.2 hypokalemia. Improved from 7.56 to 7.53. Will repeat VBG in am. Will not contribute to contraction alkalosis with Lasix- cont to hold. 4. Acute diastolic heart failure-compensated. Lasix held in setting of severe metabolic alkalosis 5. Noncompliance-reported noncompliance with multiple recommended therapies and follow-up plans on discharge. Agreed to HH at discharge and declined them when they attempted to come to her home. 6. Chronic pain syndrome. Cont Fentanyl patch. Considered that this may be contributing to her fatigue, however, she seemed to perk up on the BIPAP so will cont for now. 7. Afib-rate controlled on Metoprolol, slightly subtherapeutic on coumadin. Daily INR. 8. s/p mitral valve repair 9. Bipolar disporder-cont with 10. Acute leg fracture s/p fall at home-in Cam boot, pain appears controlled. Ortho as outpatient in two weeks. 11. 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 patient educator nurse asked to revisit her this admission. Cont Glargine and reduced dose while NPO 12. HTN-controlled, cont home meds 13. Hypothyroidism-cont Synthroid 14. DARIUS-untreated at home 15. GERD-Protonix 16. Leukocytosis 2/2 steroid use. DVT prophy-coumadin Full Code Dispo-to med surg floor DO Kandy Valentin Hospitalist Consultants: Pulm-Dr. Bland. Current Inpatient Medications: Current Inpatient Medications Medications (Trade) Dose Ordered Sig/Artemio Route Start Time Stop Time Status Last Admin Dose Admin Ondansetron HCl (Zofran Inj) 4 mg Q6H PRN IV 04/20/17 15:30 05/20/17 15:29 Polyethylene (Miralax Powder Packet) 17 gm DAILY PRN PO 04/20/17 15:30 05/20/17 15:29 Albuterol/ Ipratropium (Duoneb) 3 ml QIDR INH 04/20/17 20:00 05/20/17 19:59 04/22/17 15:47 3 ML Amitriptyline HCl (Elavil Tab) 50 mg HS PO 04/20/17 21:00 05/20/17 20:59 04/21/17 20:24 50 MG Epinephrine (Epipen) 0.3 mg UD PRN IM 04/20/17 16:30 05/20/17 16:29 Fentanyl (Duragesic Patch) 50 mcg Q72H TD 04/21/17 09:00 05/05/17 08:59 04/21/17 08:23 50 MCG Salmeterol Xinafoate/ Fluticasone (Advair Diskus 250/50 Inh) 1 puff BID INH 04/20/17 21:00 05/20/17 20:59 04/22/17 09:16 1 PUFF Gabapentin (Neurontin Tab) 800 mg TID PO 04/20/17 21:00 05/20/17 20:59 04/22/17 13:21 800 MG Metoprolol Tartrate (Lopressor Tab) 75 mg BID PO 04/20/17 21:00 05/20/17 20:59 04/22/17 09:16 75 MG Olanzapine (Zyprexa Tab) 2.5 mg HS PO 04/20/17 21:00 05/20/17 20:59 04/21/17 20:24 2.5 MG Venlafaxine HCl (effeXOR EXTENDED REL CAP) 225 mg QAM PO 04/21/17 09:00 05/21/17 08:59 04/22/17 09:17 225 MG Warfarin Sodium (Coumadin Tab) 5 mg SuTh@1600 PO 04/20/17 18:00 05/20/17 17:59 04/20/17 18:55 5 MG Warfarin Sodium (Coumadin Tab) 7.5 mg MoTuWeFrSa@1600 PO 04/21/17 16:00 05/21/17 15:59 04/22/17 15:48 7.5 MG Amlodipine Besylate (Norvasc Tab) 10 mg QAM PO 04/21/17 09:00 05/21/17 08:59 04/22/17 09:16 10 MG Calcitriol (Rocaltrol Cap) 0.5 mcg MoWeFr@0900 PO 04/21/17 09:00 05/21/17 08:59 04/21/17 08:56 0.5 MCG Glucose (Glucose 40% Gel) 15-30 GRAMS 15 GRAMS... UD PRN PO 04/20/17 17:15 05/20/17 17:14 Glucose (Glucose Chew Tab) 4-8 Tablets 4 Tabl... UD PRN PO 04/20/17 17:15 05/20/17 17:14 Dextrose (Dextrose 50% 50ML Syringe) 25-50ML OF 50% DW IV FOR... UD PRN IV 04/20/17 17:15 05/20/17 17:14 Glucagon (Glucagon Inj) 1 mg UD PRN SQ 04/20/17 17:15 05/20/17 17:14 Miscellaneous Information (Consult Glycemic Management Pharmacy) 1 ea UD N/A 04/20/17 18:03 05/20/17 18:02 Miscellaneous (Fentanyl Patch Remove & Waste) 1 ea Q3D@0859 N/A 04/21/17 08:59 05/21/17 08:58 04/21/17 08:23 1 EA Miscellaneous Information (Check Fentanyl Patch Placement) 1 ea QS N/A 04/21/17 00:00 05/21/17 00:00 04/22/17 15:47 1 EA Insulin Aspart (novoLOG ASPART) SLIDING SCALE ACHS HI 04/20/17 18:30 05/20/17 18:29 04/22/17 11:27 27 UNITS Insulin Aspart (novoLOG ASPART) SLIDING SCALE 0000,0400 SC 04/21/17 00:00 05/21/17 00:00 04/22/17 03:42 11 UNITS Insulin Glargine (Lantus Solostar Pen) 45 units BID SC 04/20/17 21:00 05/20/17 20:59 04/22/17 09:24 45 UNITS Acetaminophen 650 mg/Empty Bag 65 ml @ 260 mls/hr Q6H PRN IV 04/21/17 16:00 05/21/17 15:59 Furosemide 40 mg/ Syringe 4 ml @ 4 mls/min BID17 IV 04/21/17 17:00 05/21/17 16:59 Future Hold 04/21/17 17:03 4 MLS/MIN Doxycycline Hyclate 100 mg/ Dextrose 110 ml @ 50 mls/hr Q12@0600,1800 IV 04/21/17 18:00 04/28/17 17:59 04/22/17 05:41 50 MLS/HR Pantoprazole Sodium (Protonix Tab) 40 mg QAM PO 04/22/17 09:00 05/22/17 08:59 04/22/17 09:16 40 MG Levothyroxine Sodium (Synthroid Tab) 50 mcg DAILYBB PO 04/23/17 06:00 05/23/17 05:59 Methylprednisolone Sodium Succinate 20 mg/Syringe 0.32 ml @ 1.5 mls/min Q8 IV 04/22/17 22:00 05/22/17 21:59
[2017-04-23 00:04] VITALS: O2SAT 98
[2017-04-23] MEDS: INSULIN ASPART 100 UNITS/ML 3 ML PEN SC SCH ×4 (04:00→12:42)
[2017-04-23] MEDS ORDERED: LEVOTHYROXINE 50 MCG TAB PO SCH (06:00)
[2017-04-23] MEDS: METHYLPREDNISOLONE IV 20 MG in SYRINGE 0 ML IV SCH (06:13)
[2017-04-23 06:54] LABS: HEMATOCRIT 36.8 % (37-47); MEAN CELL VOLUME 90.6 fL (80-100); MEAN CORPUSCULAR HEMOGLOBIN 30.5 pg (25-34); MEAN CORPUSCULAR HGB CONC 33.7 g/dl (32-36); MEAN PLATELET VOLUME 8.1 fL (7.4-10.4); PLATELET COUNT 356 K/uL (130-400); RED BLOOD COUNT 4.06 M/uL (4.2-5.4); WHITE BLOOD COUNT 15.35 K/uL (4.8-10.8)
[2017-04-23 06:57] VITALS: PULSE 70; O2SAT 99
[2017-04-23] MEDS: ALBUT/IPRATROP 3MG/0.5MG NEB 3 ML VIAL INH SCH ×2 (06:57→11:24)
[2017-04-23 06:58] LABS: VEN BLD GAS O2 SATURATION 95.1 %; VEN BLOOD GAS BASE EXCESS 13.1 mEq/L
[2017-04-23 07:00] VITALS: BP 145/75; PULSE 66; TEMP 36.8; O2SAT 99
[2017-04-23 07:02] LABS: INR 3.2 (0.9-1.1); PROTHROMBIN TIME (PATIENT) 36.4 SECONDS (9.0-12.0)
[2017-04-23 07:40] LABS: BUN/CREATININE RATIO 27.5 (10-20); CALCIUM 9.4 mg/dl (8.5-10.1); CREATININE 0.93 mg/dl (0.60-1.20)
[2017-04-23 07:47] LABS: POTASSIUM 3.3 mmol/L (3.5-5.1)
[2017-04-23] MEDS: CHECK FENTANYL PATCH PLACEMENT SCH (08:00)
[2017-04-23] MEDS ORDERED: INSULIN GLARGINE SOLOSTAR 100 UNITS/ML 3 ML PEN SC SCH (09:00)
[2017-04-23] MEDS: FLUTICASONE/SALMETEROL 250/50 (ADVAIR) 14 PUFF/1 INHALER INH SCH (09:01)
[2017-04-23] MEDS: GABAPENTIN 800 MG TAB PO SCH ×2 (09:10→14:22)
[2017-04-23] MEDS: VENLAFAXINE HCL XR 75 MG CAPXR PO SCH (09:10)
[2017-04-23] MEDS: METOPROLOL TARTRATE 25 MG TAB PO SCH (09:10)
[2017-04-23] MEDS: PANTOprazole SOD 40 MG TAB PO SCH (09:11)
[2017-04-23] MEDS: CALCITRIOL 0.25 MCG CAP PO SCH (09:11)
[2017-04-23] MEDS: DOXYCYCLINE HYCLATE 100 MG CAP PO SCH (09:11)
[2017-04-23] MEDS: AMLODIPINE BESYLATE 5 MG TAB PO SCH (09:11)
[2017-04-23] MEDS ORDERED: POTASSIUM CHLORIDE 20 MEQ TABCR PO SCH (10:00)
--- NOTE | 2017-04-23 11:00 | PULMONARY PROGRESS NOTE ---
DATE: 04/23/2017 TIME: 10:35 a.m. SUBJECTIVE: The patient continues to feel better. When I came into the room, she had gone to the restroom on her own. She did use a walker. She was able to successfully get back from the restroom with no difficulty at all. She did not appear to be short of breath. Unfortunately, she did not do well with her BiPAP last night. She states she wore it about 3 hours. She just could not fall asleep, so she ultimately had it taken off. She denies any chest pain. She feels that her breathing is better. She is not coughing much. OBJECTIVE: GENERAL: The patient looks comfortable. Temperature is 36.8. EARS, NOSE, AND THROAT: Exam is unremarkable. HEART: Rate was 66. There was an occasional extrasystole. She sounded on this date as if she may have slight gallop. Blood pressure is 145/75. LUNGS: Lung mills revealed diminished breath sounds bilaterally. There was some prolongation to the expiratory phase of respiration. No wheezing, rales or rhonchi were heard. EXTREMITIES: Showed no cyanosis, clubbing or edema. LABORATORY DATA: CBC today showed a white count of 15.35, hemoglobin 12.4, and platelets 356,000. INR today was 3.2. Venous blood gas done today showed pH 7.48, pCO2 of 53 and a pO2 of 77. Electrolytes today show sodium 131, potassium 3.3, chloride 86, and bicarbonate 41. The BUN is 26 with a creatinine of 0.93. IMPRESSIONS: 1. Respiratory failure -- acute on chronic with hypoxia and hypercarbia -- improved. 2. Chronic obstructive pulmonary disease with exacerbation. 3. Possible congestive heart failure. 4. Obstructive sleep apnea -- untreated. 5. Metabolic alkalosis and respiratory acidosis improved. COMMENTS AND RECOMMENDATIONS: I have encouraged the patient to try and wear her BiPAP tonight. She denied that the air pressure was any problem. She just felt she could not sleep. I explained to her that it is important for her to get adapted to this device. Future attempts at keeping her out of the hospital depend upon this. We will change her from methylprednisolone to prednisone. It appears that she would be ready for discharge in the next 24-48 hours. This would be assuming all continues to be going well.
[2017-04-23 11:28] VITALS: PULSE 60; O2SAT 93
--- NOTE | 2017-04-23 11:46 | Pharmacy Progress Note ---
Glycemic Control Progress Note Date of Service Apr 23, 2017. Scope Glycemic Pharmacist consulted for glycemic control to write orders per [facility] inpatient glycemic control protocol. Objective Accuchecks BSG (last 24hrs): Test 04/22/17 11:21 04/22/17 15:46 04/22/17 16:25 04/22/17 20:47 Bedside Glucose 207 mg/dl (70-90) 266 mg/dl (70-90) 292 mg/dl (70-90) 165 mg/dl (70-90) Test 04/23/17 00:06 04/23/17 04:04 04/23/17 06:38 04/23/17 07:13 Bedside Glucose 100 mg/dl (70-90) 92 mg/dl (70-90) 82 mg/dl (70-90) Random Glucose 81 mg/dl (70-99) Recent Pertinent Medications The patient is currently receiving: * Basal insulin: Lantus 45 units every 12 hours * Correctional Insulin: Novolog Correction per scale ACHS Goal Range: Low 110 mg/dL - High 140 mg/dL Correction Factor: 10 mg/dL/unit * Prandial insulin: Per carb ratio of 1 unit per 3 grams CHO consumed Outpatient Anti-Diabetic Meds Lantus 36 units SQ BID Novolog per sliding scale Assessment & Plan ASSESSMENT: * See progress note from 04/20/17 for more background info, in short: Ms Minaya is a well-known diabetic who was admitted for a acute on chronic hypercarbic respiratory failure. * Pt receiving SQ basal bolus insulin regimen for hyperglycemia secondary to baseline DM (outpatient regimen on hold), possible infection with acute on chronic respiratory failure, and Solu-Medrol IV (20 mg IV q8 hours) * Patient is currently receiving an average of 150-200 units of insulin per day * 90 units of basal insulin * 115 units of prandial/correctional insulin * BSGs ranging 100-266 mg/dl over the past 24hrs * Changes needed to insulin regimen: * AM Fasting BSG = 82 mg/dl. This is in slightly below goal range for patient based on inpatient targets and co-morbidities. Decrease Lantus to 40 units SQ BID as last hospitalization it was determined that the patient's true basal was Lantus 40 units SQ BID. * Post-prandial BSGs are elevated; however, the patient has had decreasing blood sugars since yesterday evening when she received 22 units of Novolog. Most of the coverage the patient receives is from carbohydrate coverage. At this point, it is reasonable to loosen carbohydrate coverage slightly for breakfast due to falling blood sugars. May need re-tightened at lunch time. * Total daily dose = estimated to be around 150 units based upon previous admissions. PLAN FOR INPATIENT GLYCEMIC CONTROL: * DECREASING Lantus to 40 units SQ BID * Continuing correction factor of 10 mg/dl/unit * Continuing carb ratio of 1 unit per 3 grams CHO consumed * Continuing goal range to Low 110 mg/dL - High 140 mg/dL RECOMMENDATIONS FOR DISCHARGE: * Continue to titrate outpatient regimen to goal HbA1C. Recommend a 50/50 split with basal-bolus insulin. * Please note that the plan above was derived based on current level of insulin resistance and hospital stress. These recommendations are appropriate for inpatient admission only. Plan of care upon discharge will need to be reassessed to avoid potential outpatient hypo/hyperglycemia. Thank you.
[2017-04-23 13:23] VITALS: BP 145/75; PULSE 60; TEMP 36.8; O2SAT 93
[2017-04-23] MEDS ORDERED: FURO-85 PO (14:29)
[2017-04-23] MEDS ORDERED: DXY100 PO (14:30)
[2017-04-23] MEDS ORDERED: PRD20 PO (14:30)
[2017-04-23] MEDS ORDERED: POTA10TA79 PO (14:30)
--- NOTE | 2017-04-23 14:43 | Discharge Instructions ---
Discharge Instructions Date of Service Apr 23, 2017. Admission Reason for Admission: Chf Exacerbation, Copd With Exacerbation Discharge Discharge Diagnosis / Problem: CHF exacerbation, COPD exacerbation Discharge Goals Goal(s): Prevent Disease Progression Activity Recommendations Activity Limitations: per Instructions/Follow-up section . Instructions / Follow-Up Instructions / Follow-Up Call your Primary Care doctor if any of the following symptoms or problems start or get worse: * Shortness of breath or difficulty breathing * Wake up at night short of breath * Chest pain * Cough * Swelling of your hands, feet, or legs * More fatigued or tired with your normal activity * Palpitations - sudden fast heart beats WEIGHT * Weigh yourself every morning after using the bathroom. * Use the same scale. * Wear the same amount of clothing. * Write your weight down on a chart. * Call your Primary Care doctor if you gain more than 2-3 pounds in 1-2 days. MEDICATIONS * Use this discharge instruction sheet for medication instructions. * Take your medications at the time your doctor ordered. * Do not skip a dose of your medicines. * If you miss a dose of medicine, take it as soon as possible, but DO NOT DOUBLE A DOSE. * Read your medicine information when you get home. * Know all of the side effects of your medicine. If in doubt, ask your pharmacist * Call your Primary Care doctor's office if you have any side effects. * Be sure all of your doctors know what medicine and herbs you take (including cold, flu, and herbal medicine). Take the following with you to your follow-up doctor appointments: * Weight Chart * Medication List * List of questions Do not drink excessive alcohol, beer or wine. ADDITIONAL PROVIDER INSTRUCTIONS: 1. Please take all medications as instructed. Please note multiple medication changes. 2. You will need a sleep study to reassess your need for CPAP use overnight. Someone from [facility] will be calling you to set this up. If you don't hear from someone by early next week, please contact them to schedule. 3. You have a follow-up for this hospitalization scheduled with Dr. Garcia on 04/28 @ 10:45am. Please bring all paperwork from this hospitalization with you and arrive 10 minutes early. 4. Please follow all orthopedic instructions given to you regarding follow-up of your leg fracture. 5. Please hold your coumadin for one day and then continue current dosing. You will need to follow-up with your Anticoagulation Clinic within one week for a repeat INR. It was a pleasure taking care of you! Call if you have any questions or problems. You can reach a Siddhartha hospitalist on duty at [facility] 24 hours a day by calling [phone]. Take care of yourself. Ashleigh Humphrey, DO [facility] Hospital[facility] Current Hospital Diet Patient's current hospital diet: AHA Diet (Heart Healthy), Diabetes Type 2 Diet Discharge Diet Recommended Diet: AHA Diet (Heart Healthy), Diabetes Type 2 Diet Procedures Procedures Performed: None. Pending Studies Studies pending at discharge: yes List of pending studies: Preliminary blood cultures are negative; final read pending. Laboratory Results Hemoglobin A1c Test 04/06/17 04:33 Range/Units Estimated Average Glucose 292 mg/dl Hemoglobin A1c 11.8 H 4.5-5.6 % Lipid Panel Test 04/21/17 06:21 Range/Units Triglycerides Level 73 0-150 mg/dl Cholesterol Level 131 0-200 mg/dl HDL Cholesterol 69 mg/dl Cholesterol/HDL Ratio 1.9 LDL Cholesterol, Calculated 47 mg/dl Medical Emergencies . Who to Call and When: Call 911 or go to the Emergency Room if: * If at any time you feel your situation is an emergency * You have tightness or pain in your chest that does not go away with rest or Nitroglycerin * You are very short of breath even with rest . Non-Emergent Contact Non-Emergency issues call your: Primary Care Provider . . "Provider Documentation" section prepared by Ashleigh Humphrey. . VTE Core Measure Inpt VTE Proph given/why not?: Warfarin (Coumadin)
--- NOTE | 2017-05-01 07:34 | Discharge Summary ---
Discharge Summary Date of Service May 01, 2017. Discharge Summary Admission Date: Apr 20, 2017 at 15:34 Discharge Date: Apr 23, 2017 Discharge Disposition: Home with services Principal Diagnosis: Acute on chronic hypercapneic respiratory failure with hypoxia Severe hypokalemia Matebolic alkalosis Acute diastolic heart failure Noncompliance Chronic pain syndrome Atrial fibrillation s/p mitral valve repair Bipolar disorder Acute leg fracture s/p mechanical fall at home DMII HTN Hypothyroidism DARIUS GERD Leukocytosis in setting of steroid use Procedures: None. Vaccinations: None. Consultations: Pulm-Dr. Bland. Pending Studies/Follow-Up: see instructions below. Medication Reconciliation Changed Medications: Furosemide (Lasix) 20 Mg Tab 20 MG PO DAILY for 30 Days, #30 TAB (Changed from: Furosemide 40 Mg Tab 40 Mg PO BID) Potassium Chloride Microencaps (Potassium Chloride Cr) 10 Meq Tab 10 MEQ PO DAILY for 30 Days, #30 TAB (Changed from: 20 MEQ; BID) Continued Medications: Albuterol Sulf (Proventil 0.083% 2.5MG/3ML) 2.5 Mg/3 Ml Nebu 2.5 MG INH Q6H PRN for Wheezing, EA Amitriptyline HCl (Amitriptyline HCl) 50 Mg Tab 50 MG PO HS Amlodipine Besylate (Amlodipine Besylate) 10 Mg Tab 10 MG PO QAM Atorvastatin (Atorvastatin Calcium) 40 Mg Tab 40 MG PO HS Calcitriol (Calcitriol) 0.5 Mcg Cap 0.5 MCG PO MWF Cetirizine (Zyrtec) 10 Mg Tab 10 MG PO QAM, TAB Epinephrine (Epipen) 0.3 Mg/0.3 Ml Inj 0.3 MG IM UD PRN for ALLERGIC REACTION Fentanyl (Duragesic) 50 Mcg Tdsy 50 MCG TOP [id number] Fluticasone Prop/Salmeterol (Advair Diskus 250/50 60 Dose) 1 Ea Aerp 1 PUFF INH BID Gabapentin (Gabapentin) 800 Mg Tab 800 MG PO TID Home O2 Therapy (Oxygen) Gas 3 LITERS NA CONTINOUS Insulin Aspart (Novolog Flexpen) 100 Units/Ml Inj 5 UNITS SC UD for 30 Days, #2 EA 1 Refill Take 15-30 minutes prior to largest meal of the day (supper). If you do not eat, do not take this medication. Insulin Glargine (Lantus Solostar) 100 Unit/Ml Inj 36 UNITS SC BID for 30 Days, #10 EA 3 Refills Levothyroxine Sodium (Synthroid) 50 Mcg Tab 50 MCG PO QAM, TAB Multiple Vitamin (Multivitamin) 1 Tab Tab 1 TAB PO QAM, TAB Olanzapine (Olanzapine) 2.5 Mg Tab 2.5 MG PO HS Pantoprazole (Pantoprazole Sodium) 40 Mg Tab 40 MG PO DAILY for 30 Days, #30 TAB 3 Refills Take 30 minutes prior to a meal containing protein. Tiotropium [place] (Spiriva Handihaler) 30 Puff/540 Mcg Aerp 1 CAP INH DAILY, INHALER Venlafaxine Hcl (Effexor Extended Rel) 75 Mg Capcr 225 MG PO QAM Warfarin Sodium (Warfarin Sodium) 5 Mg Tab 5 MG PO 2XWK, TAB TAKE 5 MG EVERY FRIDAY AND FRIDAY OR OTHERWISE DIRECTED TO TAKE BY ANTICOAGULATION CLINIC/MD Warfarin Sodium (Warfarin Sodium) 5 Mg Tab 7.5 MG PO 5XWK, TAB TAKE 7.5 MG EVERY FRIDAY,FRIDAY,FRIDAY,FRIDAY AND FRIDAY OR OTHERWISE DIRECTED TO TAKE BY ANTICOAGULATION CLINIC/MD Discontinued Medications: Loperamide Hcl (Imodium) 2 Mg Cap 2 MG PO BID PRN for Loose Stool(s), CAP Lorazepam (Lorazepam) 0.5 Mg Tab 0.5 MG PO HS PRN for Anxiety Metoclopramide Hcl (Metoclopramide Hcl) 5 Mg Tab 5 MG PO ACHS TAKE THIS MEDICATION 30 MINUTES BEFORE MEALS AND BEDTIME Metolazone (Zaroxolyn) 2.5 Mg Tab 2.5 MG PO DAILY, TAB TAKE THIS MEDICATION 30 MINUTES BEFORE LASIX Mupirocin (Bactroban) 2 % Oin 1 APPLN TOP BID, GM Oxycodone HCl (Oxycodone HCl) 5 Mg Tab 10 MG PO Q6H PRN for Pain Ranitidine Hcl (Zantac) 300 Mg Tab 300 MG PO HS Trazodone HCl (Trazodone HCl) 150 Mg Tab 150 MG PO HS Admission Information HPI (per Admitting provider): Patient is a 61 yo female who presents to the ER for complaints of SOB ongoing for the last 3 days. She is frequently somnolent during the HPI, and her at the bedside is extremely hard of hearing and unable to provide much additional information. Per the patient, she has been having SOB, cough, congestion, and reports some N/V/abdominal pain all for the last few days. She states that her cough has been productive of phlegm. Her has noticed the patient has not been eating as well and stated all she was taking in was lots of ice water and pepsi. She reports having some chest pain and occasional palpitations but she is not able to elaborate further as she keeps falling asleep. She was recently admitted to the hospital and had been doing well until the last few days. She also reports falling and breaking her leg about a week ago. Physical Exam (per Admitting): General Appearance: WD/WN, no apparent distress, + pertinent finding (drowsy ) Head: normocephalic, atraumatic Eyes: PERRL, EOMI, sclerae normal ENT: hearing grossly normal Neck: supple, no JVD, no carotid bruits, trachea midline Respiratory/Chest: chest non-tender, no respiratory distress, no accessory muscle use, + decreased breath sounds, + wheezing Cardiovascular: regular rate, rhythm, no JVD, no murmur, + pertinent finding (LE edema) Abdomen/GI: normal bowel sounds, non tender, soft, no organomegaly Back: normal inspection Extremities/Musculoskelatal: no calf tenderness, normal capillary refill, + pedal edema Neurologic/Psych: no motor/sensory deficits, normal mood/affect, oriented x 3, + depressed affect Skin: normal color, warm/dry, no rash Hospital Course 61 yo F with oxygen-dependent COPD presents with 3 days of worsening dyspnea and admitted for COPD exacerbation 1. Acute on chronic hypercapnic respiratory failure with hypoxia-cont IV steroids, nebs and added doxycycline at this time. Continued with BIPAP overnight and significant improvement this morning. Repeat ABG was 7.53/56/71 and she was easily weaned to 4 then 3L NC. Diet reordered and patient was speaking without conversational dyspnea. She had resolved to baseline hypoxia level. Reduced steroids to 20 IV per pulm, who was consulted. Cont doxy and nebs. Transitioned to prednisone for discharge. 2. Severe hypokalemia-uncertain etiology. Resolved. Poss related to diuretic use including both lasix and metolazone. Holding both. Possibly contributing to metabolic alkalosis. Repeat K this morning was 4.0. 3. Metabolic alkalosis-likley 2/2 hypokalemia. Improved from 7.56 to 7.53. Will repeat VBG in am (result was 7.48). Will not contribute to contraction alkalosis with Lasix-cont to hold. Discharged on a reduced amount because of h/ o diastolic heart failure with frequent exacerbations. 4. Acute diastolic heart failure-compensated. Lasix held in setting of severe metabolic alkalosis 5. Noncompliance-reported noncompliance with multiple recommended therapies and follow-up plans on discharge. Agreed to HH at discharge and declined them when they attempted to come to her home. 6. Chronic pain syndrome. Cont Fentanyl patch. Considered that this may be contributing to her fatigue, however, she seemed to perk up on the BIPAP so will cont for now. 7. Afib-rate controlled on Metoprolol, slightly subtherapeutic on coumadin. Daily INR. 8. s/p mitral valve repair 9. Bipolar disporder-cont with home meds 10. Acute leg fracture s/p fall at home-in Cam boot, pain appears controlled. Ortho as outpatient in two weeks. 11. 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 hospice educator nurse asked to revisit her this admission. Cont Glargine and reduced dose while NPO 12. HTN-controlled, cont home meds 13. Hypothyroidism-cont Synthroid 14. DARIUS-untreated at home 15. GERD-Protonix 16. Leukocytosis 2/2 steroid use. On day of discharge, lungs were clear to auscultation, she was afebrile and hemodynamically stable and was tolerating PO. She was ambulating at baseline with her walker, somewhat limited from her casted leg. She was discharged to home in stable condition with close PCP follow-up. Ashleigh Humphrey DO [facility] Hospitalist Total time spent on discharge = 60 minutes This includes examination of the patient, discharge planning, medication reconciliation, and communication with other providers. Discharge Instructions [address] [address] Discharge Heart Failure (CHF) Patient Name: Juliet Minaya I Unit Number: [id number] Date of : 1955 Patient Status: Discharged Inpatient Attending Doctor: Ashleigh Humphrey DO DI: CHF v4 Discharge Instructions Date of Service Apr 23, 2017. Admission Reason for Admission: Chf Exacerbation, Copd With Exacerbation Discharge Discharge Diagnosis / Problem: CHF exacerbation, COPD exacerbation Discharge Goals Goal(s): Prevent Disease Progression Activity Recommendations Activity Limitations: per Instructions/Follow-up section . Instructions / Follow-Up Instructions / Follow-Up Call your Primary Care doctor if any of the following symptoms or problems start or get worse: * Shortness of breath or difficulty breathing * Wake up at night short of breath * Chest pain * Cough * Swelling of your hands, feet, or legs * More fatigued or tired with your normal activity * Palpitations - sudden fast heart beats WEIGHT * Weigh yourself every morning after using the bathroom. * Use the same scale. * Wear the same amount of clothing. * Write your weight down on a chart. * Call your Primary Care doctor if you gain more than 2-3 pounds in 1-2 days. MEDICATIONS * Use this discharge instruction sheet for medication instructions. * Take your medications at the time your doctor ordered. * Do not skip a dose of your medicines. * If you miss a dose of medicine, take it as soon as possible, but DO NOT DOUBLE A DOSE. * Read your medicine information when you get home. * Know all of the side effects of your medicine. If in doubt, ask your pharmacist * Call your Primary Care doctor's office if you have any side effects. * Be sure all of your doctors know what medicine and herbs you take (including cold, flu, and herbal medicine). Take the following with you to your follow-up doctor appointments: * Weight Chart * Medication List * List of questions Do not drink excessive alcohol, beer or wine. ADDITIONAL PROVIDER INSTRUCTIONS: 1. Please take all medications as instructed. Please note multiple medication changes. 2. You will need a sleep study to reassess your need for CPAP use overnight. Someone from [facility] clinic will be calling you to set this up. If you don't hear from someone by early next week, please contact them to schedule. 3. You have a follow-up for this hospitalization scheduled with Dr. Garcia on 04/28 @ 10:45am. Please bring all paperwork from this hospitalization with you and arrive 10 minutes early. 4. Please follow all orthopedic instructions given to you regarding follow-up of your leg fracture. 5. Please hold your coumadin for one day and then continue current dosing. You will need to follow-up with your Anticoagulation Clinic within one week for a repeat INR. It was a pleasure taking care of you! Call if you have any questions or problems. You can reach a Siddhartha hospitalist on duty at [facility] 24 hours a day by calling [phone]. Take care of yourself. DO [facility] Current Hospital Diet Patient's current hospital diet: AHA Diet (Heart Healthy), Diabetes Type 2 Diet Discharge Diet Recommended Diet: AHA Diet (Heart Healthy), Diabetes Type 2 Diet Procedures Procedures Performed: None. Pending Studies Studies pending at discharge: yes List of pending studies: Preliminary blood cultures are negative; final read pending. Laboratory Results Hemoglobin A1c Test 04/06/17 04:33 Range/Units Estimated Average Glucose 292 mg/dl Hemoglobin A1c 11.8 H 4.5-5.6 % Lipid Panel Test 04/21/17 06:21 Range/Units Triglycerides Level 73 0-150 mg/dl Cholesterol Level 131 0-200 mg/dl HDL Cholesterol 69 mg/dl Cholesterol/HDL Ratio 1.9 LDL Cholesterol, Calculated 47 mg/dl Medical Emergencies . Who to Call and When: Call 911 or go to the Emergency Room if: * If at any time you feel your situation is an emergency * You have tightness or pain in your chest that does not go away with rest or Nitroglycerin * You are very short of breath even with rest . Non-Emergent Contact Non-Emergency issues call your: Primary Care Provider . . "Provider Documentation" section prepared by Ashleigh Humphrey. . VTE Core Measure Inpt VTE Proph given/why not?: Warfarin (Coumadin) Additional Copies To Shanon Lara M.D.
[2017-05-03] MEDS ORDERED: XPNINS1255 INH (16:30)
[2017-05-03] MEDS ORDERED: GUAI1TAB68 PO (16:30)
[2017-05-03] MEDS ORDERED: ATRINS INH (16:30)
[2017-05-03] MEDS ORDERED: NVLGIPEN SC (16:54)
[2017-05-03] MEDS ORDERED: PRD20 PO (16:54)
[2017-05-03] MEDS ORDERED: INSDGIPEN SC (16:54)
[2017-05-05] MEDS ORDERED: LEVO50TA PO (13:11)
== END 2017-04-23 15:30 | disposition home health service (06) | DRG 291 ==
LOC: EDBD 12:13 → C.EDC 12:14 → C.MED 15:34 → ENRESERV 15:53 → C.MSICU 04-21 17:53 → C.2E 04-22 18:00 → ENRESERV 04-22 19:22 → C.MS2W 04-22 20:01
PROVIDERS: ADMIT Internal Medicine; ATTEND Hospitalist
DX: I50.31 Acute diastolic (congestive) heart failure (principal); J96.22 Acute and chronic respiratory failure with hypercapnia; J44.1 Chronic obstructive pulmonary disease with (acute) exacerbation; E87.3 Alkalosis; E87.6 Hypokalemia; I11.0 Hypertensive heart disease with heart failure; F17.200 Nicotine dependence, unspecified, uncomplicated; I48.91 Unspecified atrial fibrillation; F31.9 Bipolar disorder, unspecified; E11.9 Type 2 diabetes mellitus without complications; K21.9 Gastro-esophageal reflux disease without esophagitis; G47.33 Obstructive sleep apnea (adult) (pediatric); Z90.710 Acquired absence of both cervix and uterus; Z98.51 Tubal ligation status; Z90.49 Acquired absence of other specified parts of digestive tract; Z83.3 Family history of diabetes mellitus; Z79.4 Long term (current) use of insulin; G89.4 Chronic pain syndrome; D72.829 Elevated white blood cell count, unspecified; Z99.81 Dependence on supplemental oxygen; Z79.01 Long term (current) use of anticoagulants; Z91.19 Patient's noncompliance with other medical treatment and regimen

== ENCOUNTER 2017-04-28 12:55 | Inpatient (IN) | payer OTHER ==
[~2017-04-28] VITALS: Ht 162.6 cm; Wt 97.7 kg
[~2017-04-28 12:55] MED LIST changes: -ATV5X PO; -CHOL100010 PO; -CLS1 PO; -DPH/ PO; -DSY/150 PO; +DXY100 PO; +FURO-85 PO; -HYDR25CA PO; -IMD/2 PO; -LSX40 PO; -METO2.5T PO; -METO5TAB2 PO; -MUPI2OIN9 TOP; -ONDA-63 PO; -OXYC-609 PO; -RANI300T PO; -RBX500 PO
[2017-04-28] MEDS ORDERED: METOPROLOL TARTRATE 1 MG/ML VIAL IV STA (13:17)
[2017-04-28] MEDS ORDERED: ONDANSETRON INJ 2 MG/ML 2 ML VIAL IV STA (13:22)
[2017-04-28 13:38] LABS: MANUAL MICROSCOPIC REQUIRED? NO; REVIEW REQ? NO; URINE APPEARANCE CLEAR (CLEAR); URINE BILIRUBIN NEG (NEG); URINE COLOR YELLOW; URINE NITRITE NEG (NEG); URINE SPECIFIC GRAVITY 1.013 (1.000-1.030); UROBILINOGEN NEG (NEG); ZZUR CULT IF INDIC CLEAN CATCH NO
--- NOTE | 2017-04-28 13:48 | EMERGENCY ROOM VISIT NOTE ---
History Report prepared by [place]: Tigre Parnell Under the Supervision of: Dr. Nannette Woody M.D. First contact with patient: 13:11 Chief Complaint: TACHYCARDIA Stated Complaint: NAUSEA Nursing Triage Summary: Pt. was at [facility] today for a check up at the application packaging specialist, she was tachycardic there, so they called EMS. She is c/o nausea, ALS reports BSG of 42 for office staff there, 110 en route. She denies CP or SOB. History of Present Illness The patient is a 61 year old female who presents to the Emergency Room due to a tachycardic heart rate that was noticed shortly prior to arrival. The patient states that she was at [facility] today for an evaluation by her application packaging specialist. The patient was tachycardic on this visit so the application packaging specialist phoned for EMS to bring her to the ED. The patient notes that her blood sugar has been very low lately and was 42 today at [facility]. She is currently nauseous, but has not vomited. The patient has a history of congestive heart failure and is on Coumadin. 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 A total of 10 systems reviewed and were otherwise negative. Past Medical & Surgical Medical Problems: (1) Acute electrocardiogram changes (2) Asthma (3) Atrial fibrillation (4) Bipolar disorder (5) C. difficile colitis (6) Chronic abdominal pain (7) Chronic cor pulmonale (8) Chronic pain (9) Chronic respiratory failure (10) COPD with exacerbation (11) COPD, severe (12) Cor pulmonale (chronic) (13) Depression (14) DM type 2 (diabetes mellitus, type 2) (15) DVT (deep venous thrombosis) (16) Gastroparesis (17) GERD (gastroesophageal reflux disease) (18) History of ear infection (19) HTN (hypertension) (20) Hypokalemia (21) Hypothyroidism (22) [place]ili toxicity (23) DARIUS on CPAP (24) Osteoarthritis (25) PAF (paroxysmal atrial fibrillation) Surgical Problems: (1) H/O: hysterectomy (2) Hx of appendectomy (3) Hx of cholecystectomy (4) Hx of lumpectomy (5) Hx of mitral valve repair (6) Hx of tubal ligation (7) Hx of umbilical hernia repair Family History Diabetes mellitus MOTHER FH: Crohn's disease SISTER Hypertension MOTHER Social History Smoking Status: Current Every Day Smoker Alcohol Use: none Drug Use: none Marital Status: Housing Status: lives with significant other Occupation Status: disabled Current/Historical Medications Scheduled Amitriptyline HCl (Amitriptyline HCl), 50 MG PO HS Amlodipine Besylate (Amlodipine Besylate), 10 MG PO QAM Atorvastatin (Atorvastatin Calcium), 40 MG PO HS Calcitriol (Calcitriol), 0.5 MCG PO MWF Cetirizine (Zyrtec), 10 MG PO QAM Fentanyl (Duragesic), 50 MCG TOP [id number] Fluticasone Prop/Salmeterol (Advair Diskus 250/50 60 Dose), 1 PUFF INH BID Furosemide (Lasix), 20 MG PO DAILY Gabapentin (Gabapentin), 800 MG PO TID Home O2 Therapy (Oxygen), 3 LITERS NA CONTINOUS Insulin Aspart (Novolog Flexpen), 5 UNITS SC UD Insulin Glargine (Lantus Solostar), 36 UNITS SC BID Levothyroxine Sodium (Synthroid), 50 MCG PO QAM Metoclopramide Hcl (Reglan), 5 MG PO TIDM Metoprolol Tartrate (Lopressor) (Lopressor), 1 TAB PO BID Multiple Vitamin (Multivitamin), 1 TAB PO QAM Olanzapine (Olanzapine), 2.5 MG PO HS Pantoprazole (Pantoprazole Sodium), 40 MG PO DAILY Potassium Chloride Microencaps (Potassium Chloride Cr), 10 MEQ PO DAILY Tiotropium [place] (Spiriva Handihaler), 1 CAP INH DAILY Trazodone Hcl (Trazodone), 150 MG PO HS Venlafaxine Hcl (Effexor Extended Rel), 225 MG PO QAM Warfarin Sodium (Warfarin Sodium), 5 MG PO 2XWK Warfarin Sodium (Warfarin Sodium), 7.5 MG PO 5XWK Scheduled PRN Albuterol Sulf (Proventil 0.083% 2.5MG/3ML), 2.5 MG INH Q6H PRN for Wheezing Epinephrine (Epipen), 0.3 MG IM UD PRN for ALLERGIC REACTION Lorazepam (Lorazepam), 0.5 MG PO for Anxiety/Agitation Allergies Coded Allergies: BEE STING (Verified Allergy, Severe, SWELLING, 04/20/17) Lisinopril (Verified Allergy, Intermediate, FACE SWELLING, 04/20/17) Metronidazole (Verified Allergy, Mild, FACE SWELLING, 04/20/17) [place] (Verified Allergy, Mild, HIVES, 04/20/17) Alprazolam (Verified Allergy, Unknown, RED FACE, FACE SWELLING, 04/20/17) Lactose (Verified Adverse Reaction, Intermediate, VOMTING DIARRHEA ABDOMINAL PAIN, 04/20/17) Prednisone (Verified Adverse Reaction, Mild, unknown, 04/20/17) Colesevelam (Verified Adverse Reaction, Unknown, unknown, 04/20/17) [place]ili (Verified Adverse Reaction, Unknown, jitters, 04/20/17) Uncoded Allergies: BBQ CHIPS (Allergy, Unknown, FACE SWELLING, 12/22/15) Physical Exam Vital Signs Date Time Temp Pulse Resp B/P (MAP) Pulse Ox O2 Delivery O2 Flow Rate FiO2 04/28/17 15:29 97 Nasal Cannula 2.0 04/28/17 15:17 133 18 116/71 97 Nasal Cannula 2.0 04/28/17 15:12 133 18 108/82 94 Nasal Cannula 2.0 04/28/17 15:00 133 16 90 Room Air 04/28/17 14:50 133 21 94 04/28/17 14:45 132 20 97 04/28/17 14:40 132 23 95 04/28/17 14:35 131 14 97 04/28/17 14:30 131 17 94 04/28/17 14:25 132 19 97 04/28/17 14:22 134 132/64 04/28/17 14:20 134 15 98 04/28/17 14:15 128 21 04/28/17 14:10 133 17 04/28/17 14:05 125 20 04/28/17 14:00 123 30 94 04/28/17 13:55 133 18 95 04/28/17 13:50 133 15 95 04/28/17 13:45 133 14 96 04/28/17 13:40 133 24 95 04/28/17 13:35 134 15 96 04/28/17 13:30 135 20 98 04/28/17 13:25 128 23 98 04/28/17 13:20 134 16 100 04/28/17 13:18 132 04/28/17 13:17 132/64 04/28/17 13:15 127 21 87 04/28/17 13:10 132 23 96 04/28/17 13:05 131 20 96 04/28/17 12:52 36.8 133 16 110/81 98 Room Air 04/28/17 12:52 97 Room Air Physical Exam Vital signs reviewed. General: Well-appearing female, in no significant distress. HEENT: No scleral icterus, PERRLA, neck supple. Atraumatic. Cardiovascular: Tachycardic rate with normal rhythm, no extra sounds. Pulmonary: Clear to auscultation bilaterally, normal work of breathing. Abdomen: Soft, nontender, nondistended, positive bowel sounds. Musculoskeletal: Atraumatic, no peripheral edema. Neurologic: Patient awake alert and oriented x 3. Skin: Warm, dry, no rash Medical Decision & Procedures ER Provider Diagnostic Interpretation: Radiology results as stated below per my review and radiologist interpretation: KUB CLINICAL HISTORY: 61 years-old Female presenting with nausea, lower abd pain. TECHNIQUE: Single supine view of the abdomen was obtained. COMPARISON: 02/10/2017. FINDINGS: Image quality is limited by body habitus. Prosthetic mitral valve noted. Cholecystectomy clips. Mild gaseous distention of bowel. Assessment for obstruction is limited . No evidence of free gas. Osseous structures normal. IMPRESSION: 1. Limited evaluation secondary to body habitus. Mild gaseous distention of bowel. If there is continuing clinical concern for bowel obstruction, cross-sectional imaging should be obtained. Electronically signed by: Erick Garner M.D. 04/28/2017 2:24 PM Dictated Date/Time: 04/28/2017 2:22 PM SINGLE VIEW CHEST CLINICAL HISTORY: Dyspnea. FINDINGS: An AP, portable, upright chest radiograph is compared to study dated 04/21/2017. Correlation is made with chest CT dated 07/04/1715. The examination is degraded by portable technique and patient rotation. The heart is enlarged and there is atherosclerotic calcification of the thoracic ureter. There is evidence of previous mitral valve surgery. Mild pulmonary vascular congestion is observed. No airspace consolidation or large pleural effusion is identified. Emphysema and chronic residual thickening are similar to previous. Herniation of the right upper lung is noted. This was also seen on prior studies No pneumothorax is seen. The skeletal structures are osteopenic. The bony thorax is grossly intact. Surgical clips project over the right upper chest. IMPRESSION: 1. Cardiomegaly and emphysema with evidence of mild congestive failure. 2. No airspace consolidation or large pleural effusion is identified. 3. Herniation of the right upper lung is again noted. This was also seen on prior studies. Electronically signed by: Jame Batres M.D. 04/28/2017 1:47 PM Dictated Date/Time: 04/28/2017 1:44 PM Laboratory Results Test 04/28/17 13:21 04/28/17 13:42 04/28/17 13:50 Urine Color YELLOW Urine Appearance CLEAR (CLEAR) Urine pH 6.0 (4.5-7.5) Urine Specific [place] 1.013 (1.000-1.030) Urine Protein NEG (NEG) Urine Glucose (UA) NEG (NEG) Urine Ketones NEG (NEG) Urine Occult Blood NEG (NEG) Urine Nitrite NEG (NEG) Urine Bilirubin NEG (NEG) Urine Urobilinogen NEG (NEG) Urine Leukocyte Esterase NEG (NEG) Immature Granulocyte % (Auto) 1.0 % White Blood Count 12.35 K/uL (4.8-10.8) Red Blood Count 4.02 M/uL (4.2-5.4) Hemoglobin 12.5 g/dL (12.0-16.0) Hematocrit 37.2 % (37-47) Mean Corpuscular Volume 92.5 fL (80-100) Mean Corpuscular Hemoglobin 31.1 pg (25-34) Mean Corpuscular Hemoglobin Concent 33.6 g/dl (32-36) Platelet Count 317 K/uL (130-400) Mean Platelet Volume 9.0 fL (7.4-10.4) Neutrophils (%) (Auto) 66.3 % Lymphocytes (%) (Auto) 21.3 % Monocytes (%) (Auto) 9.4 % Eosinophils (%) (Auto) 1.8 % Basophils (%) (Auto) 0.2 % Neutrophils # (Auto) 8.20 K/uL (1.4-6.5) Lymphocytes # (Auto) 2.63 K/uL (1.2-3.4) Monocytes # (Auto) 1.16 K/uL (0.11-0.59) Eosinophils # (Auto) 0.22 K/uL (0-0.5) Basophils # (Auto) 0.02 K/uL (0-0.2) Immature Granulocyte # (Auto) 0.12 K/uL (0.00-0.02) Activated Partial Thromboplast Time 36.5 SECONDS (21.0-31.0) Partial Thromboplastin Ratio 1.4 Phosphorus Level 3.7 mg/dl (2.5-4.9) Magnesium Level 2.1 mg/dl (1.8-2.4) Total Bilirubin 0.3 mg/dl (0.2-1) Direct Bilirubin 0.1 mg/dl (0-0.2) Aspartate Amino Transf (AST/SGOT) 75 U/L (15-37) Alanine Aminotransferase (ALT/SGPT) 126 U/L (12-78) Alkaline Phosphatase 94 U/L (45-117) Total Protein 6.3 gm/dl (6.4-8.2) Albumin 2.8 gm/dl (3.4-5.0) Lipase 196 U/L (73-393) Thyroid Stimulating Hormone (TSH) 0.995 uIu/ml (0.300-4.500) Bedside Troponin I < 0.030 ng/ml (0-0.045) Laboratory results per my review. Medications Administered Medications (Trade) Dose Ordered Sig/Artemio Route Start Time Stop Time Status Last Admin Dose Admin Metoprolol Tartrate (Lopressor Iv) 5 mg NOW STAT IV 04/28/17 13:17 04/28/17 13:20 DC 04/28/17 14:22 5 MG Ondansetron HCl (Zofran Inj) 4 mg NOW STAT IV 04/28/17 13:22 04/28/17 13:23 DC 04/28/17 14:24 4 MG Diltiazem HCl (Cardizem Inj) 20 mg NOW STAT IV 04/28/17 14:35 04/28/17 14:37 DC 04/28/17 15:06 20 MG Dextrose (Dextrose 50% 50ML Syringe) 25 ml NOW STAT IV 04/28/17 14:58 04/28/17 15:00 DC 04/28/17 15:04 25 ML Dextrose/Sodium Chloride 1,000 ml @ 125 mls/hr Q8H IV 04/28/17 15:00 04/28/17 19:04 DC 8/14/17 15:45 125 MLS/HR ECG Indication: tachycardia Rate (beats per minute): 134 Rhythm: atrial flutter Findings: other (Repolarization abnormality) ED Course 1315: Past medical records reviewed. The patient was evaluated in room A2. A complete history and physical examination was performed. 1317: Ordered Lopressor 5 mg IV. 1322: Ordered Zofran 4 mg IV. 1435: Ordered Cardizem 20 gm IV 1455: I discussed the case with Caitlyn Lockett PA-C at this time. She will evaluate the patient for further treatment. 1458: Ordered Dextrose 50 mL IV. 1500: Ordered Dextrose/Sodium Chloride 1000 mL @ 125 mL/hr IV. Medical Decision Differential diagnosis: Etiologies such as premature contractions, electrolyte abnormality, cardiac dysrhythmia, thyroid dysfunction, pulmonary embolism, infection, gastrointestinal, as well as others were entertained. This pt was evaluated and appeared to be in no distress. IV access was obtained and lab work was drawn. Pt was placed on the awake overnight monitor. Patient is found to be tachycardiac in an atrial flutter. Patient was given IV metoprolol 5 mg. Patient had little benefit and continued to be tachycardic in the 130s. She was given 20 mg of IV Cardizem and IV hydration was initiated for transient hypotension. The patient continued to be in a rapid atrial flutter. She may require a Cardizem drip. Laboratory work is fairly unrevealing. Patient was given IV dextrose for hypoglycemia. She was discussed with the hospitalist service who will evaluate the patient for further management. Consults Time Called: [phone] Consulting Physician: Caitlyn Lockett PA-C Returned Call: [phone] I discussed the case with Caitlyn Lockett PA-C at this time. She will evaluate the patient for further treatment. Impression Primary Impression: Atrial flutter with rapid ventricular response Critical Care I have personally spent greater than 30 minutes of critical care time in the direct management of this patient. This includes bedside care, interpretation of diagnostic studies, and testing, discussion with consultants, patient, and family members, and other required patient management activities. This 30 minutes is in excess of all separately billable procedures. Scribe Attestation The scribe's documentation has been prepared under my direction and personally reviewed by me in its entirety. I confirm that the note above accurately reflects all work, treatment, procedures, and medical decision making performed by me. Departure Information Dispostion Being Evaluated By Hospitalist Referrals Manoj Goins D.O. (PCP) Patient Instructions My [facility]
[2017-04-28 14:06] LABS: INR 3.3 (0.9-1.1); PARTIAL THROMBOPLASTIN RATIO 1.4; PROTHROMBIN TIME (PATIENT) 37.2 SECONDS (9.0-12.0)
[2017-04-28 14:09] LABS: BASO % 0.2 %; BASO ABS # 0.02 K/uL (0-0.2); COMPLETE YES; EOS % 1.8 %; HEMATOCRIT 37.2 % (37-47); LYMPH % 21.3 %; LYMPH ABS # 2.63 K/uL (1.2-3.4); MEAN CELL VOLUME 92.5 fL (80-100); MEAN CORPUSCULAR HEMOGLOBIN 31.1 pg (25-34); MEAN CORPUSCULAR HGB CONC 33.6 g/dl (32-36); MONO % 9.4 %; NEUT % 66.3 %; PLATELET COUNT 317 K/uL (130-400); RED BLOOD COUNT 4.02 M/uL (4.2-5.4); WHITE BLOOD COUNT 12.35 K/uL (4.8-10.8)
[2017-04-28 14:16] LABS: BUN/CREATININE RATIO 32.6 (10-20); CALCIUM 9.4 mg/dl (8.5-10.1); MAGNESIUM 2.1 mg/dl (1.8-2.4); PHOSPHORUS 3.7 mg/dl (2.5-4.9)
--- NOTE | 2017-04-28 14:26 | DIAGNOSTIC IMAGING REPORT ---
KUB CLINICAL HISTORY: 61 years-old Female presenting with nausea, lower abd pain. TECHNIQUE: Single supine view of the abdomen was obtained. COMPARISON: 02/10/2017. FINDINGS: Image quality is limited by body habitus. Prosthetic mitral valve noted. Cholecystectomy clips. Mild gaseous distention of bowel. Assessment for obstruction is limited . No evidence of free gas. Osseous structures normal. IMPRESSION: 1. Limited evaluation secondary to body habitus. Mild gaseous distention of bowel. If there is continuing clinical concern for bowel obstruction, cross-sectional imaging should be obtained. Electronically signed by: Erick Garner M.D. 04/28/2017 2:24 PM Dictated Date/Time: 04/28/2017 2:22 PM
[2017-04-28 14:32] LABS: THYROID STIMULATING HORMONE 0.995 uIu/ml (0.300-4.500)
[2017-04-28] MEDS ORDERED: DILTIAZEM HCL 5 MG/ML 5 ML VIAL IV STA (14:35)
[2017-04-28] MEDS ORDERED: DEXTROSE 50% 50 ML SYR IV STA (14:58)
[2017-04-28] MEDS ORDERED: DEXTROSE 50% 50 ML SYR ONE (14:58)
[2017-04-28] MEDS ORDERED: D5W AND 1/2NSS 1,000 ML IV SCH (15:00)
[2017-04-28 15:29] VITALS: O2SAT 97; BMI 35.9
[2017-04-28] MEDS ORDERED: DILTIAZEM BOLUS / DRIP IV STA (15:43)
[2017-04-28] MEDS ORDERED: ONDANSETRON INJ 2 MG/ML 2 ML VIAL IV PRN (16:00)
[2017-04-28] MEDS ORDERED: ACETAMINOPHEN 325 MG TAB PO PRN (16:00)
[2017-04-28] MEDS ORDERED: PHARMACY GLYCEMIC MGMT CONSULT PRN (16:07)
[2017-04-28] MEDS ORDERED: GLUCOSE 40% GEL 15 GM TUBE PO PRN (16:15)
[2017-04-28] MEDS ORDERED: GLUCAGON FOR INJ 1 MG VIAL SQ PRN (16:15)
[2017-04-28] MEDS ORDERED: EPINEPHRINE ADULT AUTO-INJECT 0.3 MG SYR IM PRN (16:15)
[2017-04-28] MEDS: DILTIAZEM HCL INJ 125 MG in DEXTROSE 5% 100ML IV PRN ×2 (17:43→19:27)
[2017-04-28] MEDS: NYSTATIN SUSP 500,000 U/5 ML UDC PO SCH ×2 (17:45→20:20)
[2017-04-28 18:27] VITALS: BP 105/67; PULSE 137; TEMP 36.8; O2SAT 96
[2017-04-28 19:14] VITALS: BP 110/77; PULSE 137; TEMP 36.8; O2SAT 97
--- NOTE | 2017-04-28 19:22 | History and Physical ---
History & Physical Date & Time of Service: Apr 28, 2017 at 16:08 Chief Complaint: Nausea Primary Care Physician: Manoj Goins D.O. History of Present Illness Source: patient, clinic records, hospital records This is a 61 year old female with PMH of atrial flutter on Coumadin, history of mitral valve repair, severe COPD with chronic respiratory failure on 2 liters NC continuous, DARIUS not currently using CPAP, DM type 2, HL, obesity, and other problems listed below who was sent to the ED from cardiology clinic for atrial flutter with RVR. Patient was recently hospitalized at [facility] for acute on chronic hypoxic respiratory failure due to COPD exacerbation. She was discharged on 04/24/2017 on prednisone and doxycycline. Was seen in follow up by Javan Maravilla PA-C on 04/25/17 at which time she was noted to be tachycardic and metoprolol tartrate was increased from 75 mg BID to 100 mg BID. She was re- evaluated today by Javan Maravilla and continued with elevated HR in 130s, was noted to be hypoglycemic to 40s this am, and was sent to ER. While in the ER patient was noted to be in atrial flutter rate 130s. She was treated with IV Lopressor 5 mg and IV Cardizem 20 mg without improvement. Blood sugar was 40s in ER and she was given dextrose with improvement. Currently she feels asymptomatic. Had palpitations at home. She reported both high and low blood sugars since discharge. She did eat breakfast today. Has experienced fever up to 102 at home and chills sometime after discharge, but is unclear on the timeline. She reports chronic SOB at rest and BREAUX. Has had intermittent nausea and abdominal pain across the lower quadrants, which resolved. Has noted urinary frequency and dysuria. Has been using ambulatory boot on her RLE after sustaining a fracture approximately 8 weeks ago. Has had sore throat and left ear pain. Denies any chest pain, cough, increasing LE edema, diarrhea. Past Medical/Surgical History Medical Problems: (1) Asthma Status: Chronic (2) Atrial fibrillation Status: Chronic (3) Bipolar disorder Status: Chronic (4) C. difficile colitis Status: Resolved (5) Chronic abdominal pain Status: Chronic (6) Chronic cor pulmonale Status: Chronic (7) Chronic pain Status: Chronic (8) Chronic respiratory failure Status: Chronic (9) COPD, severe Status: Chronic (10) Depression Status: Chronic (11) DM type 2 (diabetes mellitus, type 2) Status: Chronic (12) DVT (deep venous thrombosis) Status: Chronic (13) Gastroparesis Status: Chronic (14) GERD (gastroesophageal reflux disease) Status: Chronic (15) HTN (hypertension) Status: Chronic (16) Hypothyroidism Status: Chronic (17) DARIUS on CPAP Status: Chronic (18) Osteoarthritis Status: Chronic Surgical Problems: (1) H/O: hysterectomy Status: Chronic (2) Hx of appendectomy Status: Chronic (3) Hx of cholecystectomy Status: Chronic (4) Hx of lumpectomy Status: Chronic (5) 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 Status: Chronic (6) Hx of tubal ligation Status: Chronic (7) Hx of umbilical hernia repair Status: Chronic Family History Diabetes mellitus MOTHER FH: Crohn's disease SISTER Hypertension MOTHER Social History Smoking Status: Current Every Day Smoker Drug Use: none Marital Status: Housing status: lives with family Occupational Status: disabled Immunizations History of Influenza Vaccine: Yes Influenza Vaccine Date: May 30, 2015 History of Tetanus Vaccine?: Yes Tetanus Immunization Date: Apr 22, 2006 History of Pneumococcal: Yes Pneumococcal Date: Mar 24, 2015 Multi-Drug Resistant Organisms History of MDRO: No Allergies Coded Allergies: BEE STING (Verified Allergy, Severe, SWELLING, 04/20/17) Lisinopril (Verified Allergy, Intermediate, FACE SWELLING, 04/20/17) Metronidazole (Verified Allergy, Mild, FACE SWELLING, 04/20/17) [place] (Verified Allergy, Mild, HIVES, 04/20/17) Alprazolam (Verified Allergy, Unknown, RED FACE, FACE SWELLING, 04/20/17) Lactose (Verified Adverse Reaction, Intermediate, VOMTING DIARRHEA ABDOMINAL PAIN, 04/20/17) Prednisone (Verified Adverse Reaction, Mild, unknown, 04/20/17) Colesevelam (Verified Adverse Reaction, Unknown, unknown, 04/20/17) [place] (Verified Adverse Reaction, Unknown, jitters, 04/20/17) Uncoded Allergies: BBQ CHIPS (Allergy, Unknown, FACE SWELLING, 12/22/15) Home Medications Scheduled Amitriptyline HCl (Amitriptyline HCl), 50 MG PO HS Amlodipine Besylate (Amlodipine Besylate), 10 MG PO QAM Atorvastatin (Atorvastatin Calcium), 40 MG PO HS Calcitriol (Calcitriol), 0.5 MCG PO MWF Cetirizine (Zyrtec), 10 MG PO QAM Fentanyl (Duragesic), 50 MCG TOP [id number] Fluticasone Prop/Salmeterol (Advair Diskus 250/50 60 Dose), 1 PUFF INH BID Furosemide (Lasix), 20 MG PO DAILY Gabapentin (Gabapentin), 800 MG PO TID Home O2 Therapy (Oxygen), 3 LITERS NA CONTINOUS Insulin Aspart (Novolog Flexpen), 5 UNITS SC UD Insulin Glargine (Lantus Solostar), 36 UNITS SC BID Levothyroxine Sodium (Synthroid), 50 MCG PO QAM Metoclopramide Hcl (Reglan), 5 MG PO TIDM Metoprolol Tartrate (Lopressor) (Lopressor), 1 TAB PO BID Multiple Vitamin (Multivitamin), 1 TAB PO QAM Olanzapine (Olanzapine), 2.5 MG PO HS Pantoprazole (Pantoprazole Sodium), 40 MG PO DAILY Potassium Chloride Microencaps (Potassium Chloride Cr), 10 MEQ PO DAILY Tiotropium [place] (Spiriva Handihaler), 1 CAP INH DAILY Trazodone Hcl (Trazodone), 150 MG PO HS Venlafaxine Hcl (Effexor Extended Rel), 225 MG PO QAM Warfarin Sodium (Warfarin Sodium), 5 MG PO 2XWK Warfarin Sodium (Warfarin Sodium), 7.5 MG PO 5XWK Scheduled PRN Albuterol Sulf (Proventil 0.083% 2.5MG/3ML), 2.5 MG INH Q6H PRN for Wheezing Epinephrine (Epipen), 0.3 MG IM UD PRN for ALLERGIC REACTION Lorazepam (Lorazepam), 0.5 MG PO for Anxiety/Agitation Physical Exam Vital Signs Date Time Temp Pulse Resp B/P (MAP) Pulse Ox O2 Delivery O2 Flow Rate FiO2 04/28/17 15:50 136 18 131/91 99 Nasal Cannula 2.0 04/28/17 15:29 97 Nasal Cannula 2.0 04/28/17 15:17 133 18 116/71 97 Nasal Cannula 2.0 04/28/17 15:12 133 18 108/82 94 Nasal Cannula 2.0 04/28/17 15:00 133 16 90 Room Air 04/28/17 14:50 133 21 94 04/28/17 14:45 132 20 97 04/28/17 14:40 132 23 95 04/28/17 14:35 131 14 97 04/28/17 14:30 131 17 94 04/28/17 14:25 132 19 97 04/28/17 14:22 134 132/64 04/28/17 14:20 134 15 98 04/28/17 14:15 128 21 04/28/17 14:10 133 17 04/28/17 14:05 125 20 04/28/17 14:00 123 30 94 04/28/17 13:55 133 18 95 04/28/17 13:50 133 15 95 04/28/17 13:45 133 14 96 04/28/17 13:40 133 24 95 04/28/17 13:35 134 15 96 04/28/17 13:30 135 20 98 04/28/17 13:25 128 23 98 04/28/17 13:20 134 16 100 04/28/17 13:18 132 04/28/17 13:17 132/64 04/28/17 13:15 127 21 87 04/28/17 13:10 132 23 96 04/28/17 13:05 131 20 96 04/28/17 12:52 36.8 133 16 110/81 98 Room Air 04/28/17 12:52 97 Room Air General Appearance: no apparent distress, + obese, + pertinent finding (obese 61 year old female, appears comfortable) Head: normocephalic, atraumatic Eyes: normal inspection, PERRL, EOMI, sclerae normal ENT: hearing grossly normal, pharynx normal (white patches in posterior pharynx ), + pertinent finding (L TM occluded by cerumen) Neck: supple, no JVD, trachea midline Respiratory/Chest: no respiratory distress, no accessory muscle use, + wheezing (mild), + pertinent finding (saturating well on 2 liters NC) Cardiovascular: no murmur, + tachycardia (rate 130s) Abdomen/GI: normal bowel sounds, non tender, soft Extremities/Musculoskelatal: no calf tenderness, no pedal edema, + pertinent finding (RLE is wrapped, bruising noted right toes) Neurologic/Psych: alert, normal mood/affect, oriented x 3 Skin: normal color, warm/dry Diagnostics Laboratory Results Results Past 24 Hours Test 04/28/17 13:21 04/28/17 13:42 04/28/17 13:50 04/28/17 14:54 Range/Units Urine Color YELLOW Urine Appearance CLEAR CLEAR Urine pH 6.0 4.5-7.5 Urine Specific [place] 1.013 1.000-1.030 Urine Protein NEG NEG Urine Glucose (UA) NEG NEG Urine Ketones NEG NEG Urine Occult Blood NEG NEG Urine Nitrite NEG NEG Urine Bilirubin NEG NEG Urine Urobilinogen NEG NEG Urine Leukocyte Esterase NEG NEG White Blood Count 12.35 4.8-10.8 K/uL Red Blood Count 4.02 4.2-5.4 M/uL Hemoglobin 12.5 12.0-16.0 g/dL Hematocrit 37.2 37-47 % Mean Corpuscular Volume 92.5 80-100 fL Mean Corpuscular Hemoglobin 31.1 25-34 pg Mean Corpuscular Hemoglobin Concent 33.6 32-36 g/dl Platelet Count 317 130-400 K/uL Mean Platelet Volume 9.0 7.4-10.4 fL Neutrophils (%) (Auto) 66.3 % Lymphocytes (%) (Auto) 21.3 % Monocytes (%) (Auto) 9.4 % Eosinophils (%) (Auto) 1.8 % Basophils (%) (Auto) 0.2 % Neutrophils # (Auto) 8.20 1.4-6.5 K/uL Lymphocytes # (Auto) 2.63 1.2-3.4 K/uL Monocytes # (Auto) 1.16 0.11-0.59 K/uL Eosinophils # (Auto) 0.22 0-0.5 K/uL Basophils # (Auto) 0.02 0-0.2 K/uL RDW Standard Deviation 46.3 36.4-46.3 fL RDW Coefficient of Variation 13.9 11.5-14.5 % Immature Granulocyte % (Auto) 1.0 % Immature Granulocyte # (Auto) 0.12 0.00-0.02 K/uL Prothrombin Time 37.2 9.0-12.0 SECONDS Prothromb Time International Ratio 3.3 0.9-1.1 Activated Partial Thromboplast Time 36.5 21.0-31.0 SECONDS Partial Thromboplastin Ratio 1.4 Sodium Level 133 136-145 mmol/L Potassium Level 5.0 3.5-5.1 mmol/L Chloride Level 100 98-107 mmol/L Carbon Dioxide Level 29 21-32 mmol/L Anion Gap 4.0 3-11 mmol/L Blood Urea Nitrogen 33 7-18 mg/dl Creatinine 1.00 0.60-1.20 mg/dl Est Creatinine Clear Calc Drug Dose 66.9 ml/min Estimated GFR () 70.9 Estimated GFR (Non- 61.2 BUN/Creatinine Ratio 32.6 10-20 Random Glucose 70 70-99 mg/dl Calcium Level 9.4 8.5-10.1 mg/dl Phosphorus Level 3.7 2.5-4.9 mg/dl Magnesium Level 2.1 1.8-2.4 mg/dl Total Bilirubin 0.3 0.2-1 mg/dl Direct Bilirubin 0.1 0-0.2 mg/dl Aspartate Amino Transf (AST/SGOT) 75 15-37 U/L Alanine Aminotransferase (ALT/SGPT) 126 12-78 U/L Alkaline Phosphatase 94 45-117 U/L Total Protein 6.3 6.4-8.2 gm/dl Albumin 2.8 3.4-5.0 gm/dl Lipase 196 73-393 U/L Thyroid Stimulating Hormone (TSH) 0.995 0.300-4.500 uIu/ml Bedside Troponin I < 0.030 0-0.045 ng/ml Bedside Glucose 41 70-90 mg/dl Diagnostic Radiology SINGLE VIEW CHEST IMPRESSION: 1. Cardiomegaly and emphysema with evidence of mild congestive failure. 2. No airspace consolidation or large pleural effusion is identified. 3. Herniation of the right upper lung is again noted. This was also seen on prior studies. KUB IMPRESSION: 1. Limited evaluation secondary to body habitus. Mild gaseous distention of bowel. If there is continuing clinical concern for bowel obstruction, cross-sectional imaging should be obtained. EKG atrial flutter with 2:1 block, 134 bpm, RBBB, T wave abnormality, consider inferior ischemia, as confirmed by cardiology read Impression Assessment and Plan ATRIAL FLUTTER WITH RVR Sent from cardiology clinic with HR in 130s; failed recent outpatient titration of metoprolol (changed from 75 mg BID to 100 mg BID on 03/25/17) Possibly related to hypogycemia; troponin negative x 1; electrolytes and TSH WNL ; no evidence for PNA or UTI Treated with Lopressor 5 mg IV and Cardizem 20 mg IV in ER without improvement Will place on Cardizem drip and continue Lopressor 100 mg BID Anticoagulated on Coumadin (INR supratherapeutic at 3.3); skip today's dose and recheck INR in AM Trend cardiac enzymes Consult cardiology; Dr. Underwood aware HYPOGLYCEMIA in setting of DM TYPE 2 Presented with BSG in 40s, symptomatic Reported hyper and hypoglycemia at home Hold Lantus for now Novolog sliding scale coverage Consult pharmacy for glycemic control CHRONIC HYPOXIC RESPIRATORY FAILURE / COPD Recently treated for exacerbation; no coughing or increased SOB; however wheezing on exam Will give dose of prednisone [address] her on Xopenex/ Atrovent nebs QID Continue supplemental O2 DARIUS BIPAP HS while hospitalized; needs outpatient sleep study THRDEB Esteban ordered CHRONIC DIASTOLIC CHF Compensated clinically Continue home dose of Lasix HYPERTENSION Stable, continue home meds HYPOTHYROIDISM TSH WNL, continue levothyroxine CHRONIC PAIN Continue Fentanyl patch RECENT RLE FRACTURE Follow up with ortho as outpatient BIPOLAR DISORDER Continue home medications DVT PROPHYLAXIS On Coumadin FULL CODE DISPOSITION Telemetry admission Follows with Dr. Goins for primary care Patient seen in collaboration with Dr. Humphrey. Please see her addendum. I have seen and examined the patient and agree with the assessment and plan above. Mrs. Minaya denied any shortness of breath, coughing, changes in sputum or increased oxygen needs lately but is wheezing thoughout her lungs on exam. Office notes reflect that she has had morning hypolgycemia likely sparking the afib with RVR vs noncompliance with meds vs COPD exacerbation. DO Kam Advanced Directives Existing Living Will: No Existing Power of Center Machine Operator: No VTE Prophylaxis VTE Risk Assessment Done? Y/N: Yes Risk Level: Moderate Given or contraindicated: Warfarin (Coumadin)
[2017-04-28] MEDS: METOCLOPRAMIDE HCL 10 MG TAB PO SCH (19:23)
[2017-04-28] MEDS ORDERED: INSULIN ASPART 100 UNITS/ML 3 ML PEN SC SCH (19:30)
--- NOTE | 2017-04-28 19:46 | Pharmacy Progress Note ---
Glycemic Control Intl Consult Date of Service Apr 28, 2017. Scope Glycemic Pharmacist consulted by Marian Melo PA-C on 04/28/17 for glycemic control and to write orders per [facility] inpatient glycemic control protocol Objective Weight (Kilograms): 94.900 Accuchecks BSG (last 24hrs): Test 04/28/17 13:42 04/28/17 14:54 04/28/17 15:18 04/28/17 15:44 Random Glucose 70 mg/dl (70-99) Bedside Glucose 41 mg/dl (70-90) 99 mg/dl (70-90) 58 mg/dl (70-90) Test 04/28/17 17:05 04/28/17 18:59 Bedside Glucose 126 mg/dl (70-90) 149 mg/dl (70-90) Laboratory Data (last 24hrs) Test 04/28/17 13:42 Anion Gap 4.0 mmol/L BUN/Creatinine Ratio 32.6 Blood Urea Nitrogen 33 mg/dl Creatinine 1.00 mg/dl Potassium Level 5.0 mmol/L Sodium Level 133 mmol/L White Blood Count 12.35 K/uL Red Blood Count 4.02 M/uL Hemoglobin 12.5 g/dL Hematocrit 37.2 % Mean Corpuscular Volume 92.5 fL Mean Corpuscular Hemoglobin 31.1 pg Mean Corpuscular Hemoglobin Concent 33.6 g/dl Platelet Count 317 K/uL Mean Platelet Volume 9.0 fL Neutrophils (%) (Auto) 66.3 % Lymphocytes (%) (Auto) 21.3 % Monocytes (%) (Auto) 9.4 % Eosinophils (%) (Auto) 1.8 % Basophils (%) (Auto) 0.2 % Neutrophils # (Auto) 8.20 K/uL Lymphocytes # (Auto) 2.63 K/uL Monocytes # (Auto) 1.16 K/uL Eosinophils # (Auto) 0.22 K/uL Basophils # (Auto) 0.02 K/uL HbA1c 11.8% on 04/06/17 Recent Pertinent Medications Outpatient Anti-diabetic Regimen: * Lantus 36 units SQ BID {recently decreased from 40 units SQ BID by PCP secondary to frequent lows over the past week} * -L-m-x-o-L-o-g- -5- -u-n-i-t-s- -w-i-t-h- -l-a-r-g-e- -m-e-a-l-s- -w-h-e-n- -B-S-G- ->- -1-5-0- -m-g--/--d-l- {PCP told her to stop taking secondary to frequent lows} Risk Factors for Insulin Resistance: * Steroids {prednisone 40mg PO x 1 in ED} * Diet Assessment & Plan ASSESSMENT: * 61yo T2DM female known to pharmacy from previous admissions/glycemic consults * Spoke with patient over the phone re: home insulin regimen and POC BSGs. Pt with frequent low BSGs over the past week and has been working with PCP to decrease insulin dosing. She is only taking Lantus {stopped NovoLog) * Preferred regimen for inpatient use is Basal + bolus insulin in a 50:50% distribution of basal:prandial to prevent hypo when PO intake changes. * Pt will need CHO coverage for steroid induced post-prandial hyperglycemia secondary to prednisone * Will continue reduced dosing of insulin regimen consistent with previous admissions. Pt typically requires 110-170units/day while on prednisone 40mg daily * ADA & AACE recommend a goal blood sugar range 140-180 mg/dl for the majority of critically ill & non-critically ill patients. However, more stringent targets may be selected in individual cases. PLAN FOR INPATIENT GLYCEMIC CONTROL: * Basal insulin * Lantus 20 units SQ x 1 dose this evening {this is ~1/2 of outpatient dosing secondary to repeated lows in ED} then, * Lantus 28 units SQ BID starting tomorrow morning * Bolus insulin * NovoLog per scale ACHS or Q6hrs while NPO * Goal Range: Low 140 mg/dL - High 180 mg/dL * Correction Factor: 25 mg/dL/unit * Nutritional / Prandial insulin per carb ratio of 1 unit per 8 grams CHO consumed * these parameters may need tightened if prednisone is continued past one time dose in ED * Please note that the plan above was derived based on current level of insulin resistance and hospital stress. These recommendations are appropriate for inpatient admission only. Plan of care upon discharge will need to be reassessed to avoid potential outpatient hypo/hyperglycemia. Thank you.
[2017-04-28 20:00] VITALS: O2SAT 97
[2017-04-28] MEDS: TRAZODONE HCL 50 MG TAB PO SCH (20:19)
[2017-04-28] MEDS: ATORVASTATIN 40 MG TAB PO SCH (20:20)
[2017-04-28] MEDS: AMITRIPTYLINE HCL 50 MG TAB PO SCH (20:20)
[2017-04-28] MEDS: GABAPENTIN 800 MG TAB PO SCH (20:21)
[2017-04-28] MEDS: OLANZAPINE 2.5 MG TAB PO SCH (20:21)
[2017-04-28] MEDS: METOPROLOL TARTRATE 100 MG TAB PO SCH (20:22)
[2017-04-28] MEDS: INSULIN ASPART 100 UNITS/ML 3 ML PEN SC SCH (20:24)
[2017-04-28] MEDS: IPRATROPIUM BROMIDE NEB SOLN 0.02% 2.5 ML VIAL INH SCH (20:34)
[2017-04-28] MEDS: LEVALBUTEROL 1.25MG/0.5ML NEB INH SCH (20:34)
[2017-04-28 20:45] VITALS: PULSE 106; PULSE 70; O2SAT 98
[2017-04-28] MEDS ORDERED: LEVALBUTEROL/IPRATROPIUM NEB INH SCH (21:00)
[2017-04-28] MEDS ORDERED: INSULIN GLARGINE SOLOSTAR 100 UNITS/ML 3 ML PEN SC SCH ×2 (21:00)
[2017-04-28 23:00] VITALS: PULSE 70; O2SAT 95
[2017-04-29] VITALS (9 sets, daily range): BP systolic 99–150; BP diastolic 56–77; PULSE 52–141; TEMP 36.6–37; O2SAT 93–99; BMI 35.8
[2017-04-29] MEDS: CHECK FENTANYL PATCH PLACEMENT SCH ×4 (00:03→23:40)
[2017-04-29] MEDS: IPRATROPIUM BROMIDE NEB SOLN 0.02% 2.5 ML VIAL INH SCH ×3 (01:53→19:41)
[2017-04-29] MEDS: LEVALBUTEROL 1.25MG/0.5ML NEB INH SCH ×3 (01:53→19:41)
[2017-04-29 02:15] LABS: CKMB/CK RATIO 2.3 (0-3.0)
[2017-04-29] MEDS: LEVOTHYROXINE 50 MCG TAB PO SCH (06:27)
[2017-04-29] MEDS: DILTIAZEM HCL INJ 125 MG in DEXTROSE 5% 100ML IV PRN ×2 (06:29→19:45)
[2017-04-29 07:29] LABS: HEMATOCRIT 35.4 % (37-47); MEAN CELL VOLUME 93.9 fL (80-100); MEAN CORPUSCULAR HGB CONC 33.1 g/dl (32-36); PLATELET COUNT 298 K/uL (130-400); RED BLOOD COUNT 3.77 M/uL (4.2-5.4); WHITE BLOOD COUNT 10.13 K/uL (4.8-10.8)
[2017-04-29 07:37] LABS: INR 2.1 (0.9-1.1); PROTHROMBIN TIME (PATIENT) 22.9 SECONDS (9.0-12.0)
[2017-04-29 07:58] LABS: CALCIUM 8.8 mg/dl (8.5-10.1); POTASSIUM 5.5 mmol/L (3.5-5.1)
[2017-04-29 08:25] LABS: ESTIMATED AVERAGE GLUCOSE 235 mg/dl; HA1C FLAG Normal (Normal)
[2017-04-29] MEDS: PANTOprazole SOD 40 MG TAB PO SCH (08:54)
[2017-04-29] MEDS: MULTIVITAMIN TAB PO SCH (08:54)
[2017-04-29] MEDS: FUROSEMIDE 20 MG TAB PO SCH (08:55)
[2017-04-29] MEDS: CETIRIZINE HCL 10 MG TAB PO SCH (08:55)
[2017-04-29] MEDS: NYSTATIN SUSP 500,000 U/5 ML UDC PO SCH ×4 (08:55→20:47)
[2017-04-29] MEDS: VENLAFAXINE HCL XR 75 MG CAPXR PO SCH (08:55)
[2017-04-29] MEDS: METOCLOPRAMIDE HCL 10 MG TAB PO SCH ×3 (08:56→17:57)
[2017-04-29] MEDS: GABAPENTIN 800 MG TAB PO SCH ×3 (08:56→20:49)
[2017-04-29] MEDS: METOPROLOL TARTRATE 100 MG TAB PO SCH ×2 (08:57→20:48)
[2017-04-29] MEDS ORDERED: INSULIN GLARGINE SOLOSTAR 100 UNITS/ML 3 ML PEN SC SCH ×3 (09:00→21:00)
[2017-04-29] MEDS: INSULIN ASPART 100 UNITS/ML 3 ML PEN SC SCH ×4 (09:00→20:57)
[2017-04-29] MEDS ORDERED: AMLODIPINE BESYLATE 5 MG TAB PO SCH (09:00)
[2017-04-29] MEDS ORDERED: POTASSIUM CHLORIDE 10 MEQ TABCR PO SCH (09:00)
--- NOTE | 2017-04-29 09:55 | Pharmacy Progress Note ---
Glycemic Control Progress Note Date of Service Apr 29, 2017. Scope Glycemic Pharmacist consulted for glycemic control to write orders per [facility] inpatient glycemic control protocol. Objective Accuchecks BSG (last 24hrs): Test 04/28/17 13:42 04/28/17 14:54 04/28/17 15:18 04/28/17 15:44 Random Glucose 70 mg/dl (70-99) Bedside Glucose 41 mg/dl (70-90) 99 mg/dl (70-90) 58 mg/dl (70-90) Test 04/28/17 17:05 04/28/17 18:59 04/29/17 00:13 04/29/17 04:12 Bedside Glucose 126 mg/dl (70-90) 149 mg/dl (70-90) 96 mg/dl (70-90) 214 mg/dl (70-90) Test 04/29/17 06:24 04/29/17 07:05 Bedside Glucose 187 mg/dl (70-90) Random Glucose 166 mg/dl (70-99) HbA1c: Test 04/29/17 07:05 Hemoglobin A1c 9.8 % (4.5-5.6) H Recent Pertinent Medications The patient is currently receiving: * Basal insulin: 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, 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 * Correctional Insulin: Novolog Correction per scale ACHS Goal Range: Low 140 mg/dL - High 180 mg/dL Correction Factor: 25 mg/dL/unit * Prandial insulin: Per carb ratio of 1 unit per 8 grams CHO consumed Outpatient Anti-Diabetic Meds * Lantus 36 units SQ BID {recently decreased from 40 units SQ BID by PCP secondary to frequent lows over the past week} * -A-v-f-o-L-o-g- -5- -u-n-i-t-s- -w-i-t-h- -l-a-r-g-e- -m-e-a-l-s- -w-h-e-n- -B-S-G- ->- -1-5-0- -m-g--/--d-l- {PCP told her to stop taking secondary to frequent lows} Assessment & Plan ASSESSMENT: * See progress note from 04/28 for more background info, in short: * Pt receiving SQ basal bolus insulin regimen for hyperglycemia secondary to baseline DM (outpatient regimen on hold),stress/infection, steroids (on prednisone 40 mg daily) * Patient's BSGs ranging 96 - 214 mg/dl over the past 24hrs * Changes needed to insulin regimen: * Prednisone dose is to be continued so will place patient on regimen similar to previous admissions when on prednisone 40 mg daily. Her TDD is usually ~150 units/day. Her previous Lantus doses were 40 units BID but her BSG started to fall after a few days on this so will trial 38 units BID now as a slight reduction. 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 Will plan to f/u closer to discharge depending on plan for outpatient steroids. Thank you.
[2017-04-29] MEDS ORDERED: NURSING VERBAL MED ORDER ONE (10:15)
[2017-04-29] MEDS: OXYCODONE HCL IR 5 MG TAB (IMMEDIATE RELEASE) PO PRN ×2 (10:24→17:57)
[2017-04-29] MEDS ORDERED: AMIODARONE IV BOLUS / DRIP IV STA (11:07)
[2017-04-29] MEDS ORDERED: AMIODARONE / D5W 100 ML IV SCH (11:15)
[2017-04-29] MEDS ORDERED: SODIUM BICARBONATE 8.4% INJ 150 MEQ in DEXTROSE 5% 1000ML 1,000 ML IV STA (11:30)
[2017-04-29] MEDS ORDERED: CALCIUM GLUCONATE 10% 1,000 MG in SODIUM CHLORIDE 0.9% 50ML 50 ML IV STA (11:30)
[2017-04-29] MEDS ORDERED: DEXTROSE 50% 50 ML SYR IV STA (11:30)
[2017-04-29] MEDS ORDERED: INSULIN HUMAN REGULAR PER UNIT 10 UNITS in SYRINGE 9.9 ML IV STA (11:30)
[2017-04-29] MEDS ORDERED: AMIODARONE / D5W 200 ML IV SCH ×2 (11:30→17:30)
[2017-04-29] MEDS ORDERED: SODIUM POLYST. SULF SUSP 15G/60ML PO STA (11:30)
--- NOTE | 2017-04-29 11:38 | Cardiology Consultation ---
Cardiology Consultation Date of Consultation: Apr 29, 2017 History of Present Illness Juliet Minaya is a 61 year old female seen in cardiology consultation per the request of Dr Humphrey for the evaluation of atrial flutter with RVR. The patient typically follows with Mr Maravilla of our practice. I had seen her in hospital consultation for AFL in 2012 and performed a cardioversion on her at that time. In the interim she had another episode of AFL several years ago and reverted back to SR while on a diltiazem infusions. The patient has had multiple recent hospitalizations and was just hospitalized about a week ago for acute exacerbation of COPD with hypoxia. At that time she was in sinus rhythm. She had resented in cardiology follow-up last week on Friday was found to have atrial flutter with rapid ventricular rate of 150 bpm. The patient had declined recommendation for hospitalization offered by Mr. HeckTaiwo, favoring outpatient therapy. She is already on Coumadin therapy, and her metoprolol tartrate dose had been increased to 100 mg twice a day. She returned for outpatient cardiology follow-up again yesterday and was found to still have significant tachycardia with ventricular rates in the 130 bpm minute range. She felt poorly with shortness of breath, and also she is found to have hypoglycemia. She was transferred to the emergency department. Should been assessed by the emergency room physician as well as Hospital service was paced on a diltiazem infusion overnight last night. At present, she remains in atrial flutter, however while resting her rates her down as low as 70 bpm which is significantly improved compared to her presenting heart rates. She does still have tachycardia however with minimal exertion up to the 100 bpm range. Troponin was negative 2 thus far. Her last hospitalization was April 20, 2017 April 23, 2017 with acute on chronic hypercapnic respiratory failure. During her preceding hospitalization in March she was also treated for acute decompensated diastolic congestive heart failure. No cardiology consultation obtained. Resting echocardiography on April 07, 2017 demonstrated normal LV size and function, EF 65 to 70%, with moderate concentric left ventricular hypertrophy. The left atrium was noted to be moderately dilated. Evidence of the prior mitral valve repair was noted with restricted posterior leaflet excursion. There was no significant mitral regurgitation and no mitral stenosis. Nine electrocardiograms are available for review at [facility], all demonstrating sinus rhythm/sinus tachycardia with supraventricular ectopy. No overt atrial fibrillation observed. The patient has a history of noncompliance with follow-up appointments, with taking medications, with supplemental oxygen use, and with ongoing tobacco abuse. 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 June 13, 2005 cardiac catheterization at [facility] demonstrated a left dominant coronary system with small caliber distal vessels consistent with diabetic history, without obstructive disease. 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 She has not been felt to be a great candidate for antiarrhythmic therapy due to QT prolongation from her psych medications. Severe chronic obstructive lung disease, advanced emphysema, chronic hypoxemia with supplemental oxygen therapy PRN during the day and QHS, cor pulmonale. DARIUS Anemia Hypertension Hyperlipidemia Type II diabetes mellitus with gastroparesis Stage III chronic kidney disease Left adrenal mass Obesity Bipolar disorder GERD Gastroparesis Hypothyroidism Osteoarthritis. Cervical disc disease Social History: Smoker. She has smoked since the age of 13. No significant alcohol. No illegal drug use. . One grown child. Disabled. Family History: Positive for diabetes mellitus and hypertension. Review Of Systems See above for pertinent positives & negatives. A total of 10 systems reviewed and were otherwise negative. Allergies Coded Allergies: BEE STING (Verified Allergy, Severe, SWELLING, 04/20/17) Lisinopril (Verified Allergy, Intermediate, FACE SWELLING, 04/20/17) Metronidazole (Verified Allergy, Mild, FACE SWELLING, 04/20/17) [place] (Verified Allergy, Mild, HIVES, 04/20/17) Alprazolam (Verified Allergy, Unknown, RED FACE, FACE SWELLING, 04/20/17) Lactose (Verified Adverse Reaction, Intermediate, VOMTING DIARRHEA ABDOMINAL PAIN, 04/20/17) Prednisone (Verified Adverse Reaction, Mild, unknown, 04/20/17) Colesevelam (Verified Adverse Reaction, Unknown, unknown, 04/20/17) [place] (Verified Adverse Reaction, Unknown, jitters, 04/20/17) Uncoded Allergies: BBQ CHIPS (Allergy, Unknown, FACE SWELLING, 12/22/15) Medications Reported Home Medications Medications Dose Route/Sig Max Daily Dose Days Date Category Dose Instructions Trazodone (Trazodone HCl) 50 Mg Tab 150 Mg PO HS 04/28/17 Reported Reglan (Metoclopramide Hcl) 10 Mg Tab 5 Mg PO TIDM 30 04/28/17 Reported Lorazepam 0.5 Mg Tab 0.5 Mg PO PRN 04/28/17 Reported Lopressor (Metoprolol Tartrate) 100 Mg Tab 1 Tab PO BID 30 04/28/17 Reported Potassium Chloride Cr (Potassium Chloride Microencaps) 10 Meq Tab 10 Meq PO DAILY 30 04/23/17 Rx Lasix (Furosemide) 20 Mg Tab 20 Mg PO DAILY 30 04/23/17 Rx Lantus Solostar (Insulin Glargine) 100 Unit/Ml Inj 36 Units SC BID 30 04/20/17 Rx Novolog Flexpen (Insulin Aspart) 100 Units/Ml Inj 5 Units SC UD 30 04/10/17 Rx Take 15-30 minutes prior to largest meal of the day (supper). If you do not eat, do not take this medication. Pantoprazole Sodium (Pantoprazole) 40 Mg Tab 40 Mg PO DAILY 30 04/10/17 Rx Take 30 minutes prior to a meal containing protein. Spiriva Handihaler (Tiotropium [place]) 30 Puff/540 Mcg Aerp 1 Cap INH DAILY 10/18/16 Reported Proventil 0.083% 2.5MG/3ML (Albuterol Sulf) 2.5 Mg/3 Ml Nebu 2.5 Mg INH Q6H PRN 10/18/16 Reported Olanzapine 2.5 Mg Tab 2.5 Mg PO HS 09/12/16 Reported Duragesic (Fentanyl) 50 Mcg Tdsy 50 Mcg TOP CQ72HR 09/12/16 Reported Warfarin Sodium 5 Mg Tab 7.5 Mg PO 5XWK 07/17/16 Reported TAKE 7.5 MG EVERY FRIDAY,FRIDAY,FRIDAY,FRIDAY AND FRIDAY OR OTHERWISE DIRECTED TO TAKE BY ANTICOAGULATION CLINIC/MD Warfarin Sodium 5 Mg Tab 5 Mg PO 2XWK 07/17/16 Reported TAKE 5 MG EVERY FRIDAY AND FRIDAY OR OTHERWISE DIRECTED TO TAKE BY ANTICOAGULATION CLINIC/MD Effexor Extended Rel (Venlafaxine Hcl) 75 Mg Capcr 225 Mg PO QAM 07/17/16 Reported Gabapentin 800 Mg Tab 800 Mg PO TID 07/17/16 Reported Amitriptyline HCl 50 Mg Tab 50 Mg PO HS 07/17/16 Reported Calcitriol 0.5 Mcg Cap 0.5 Mcg PO MWF 03/14/16 Reported Advair Diskus 250/50 60 Dose (Fluticasone Prop/Salmeterol) 1 Ea Aerp 1 Puff INH BID 07/24/15 Reported Synthroid (Levothyroxine Sodium) 50 Mcg Tab 50 Mcg PO QAM 08/15/14 Reported Amlodipine Besylate 10 Mg Tab 10 Mg PO QAM 05/25/14 Reported Atorvastatin Calcium (Atorvastatin) 40 Mg Tab 40 Mg PO HS 05/25/14 Reported Multivitamin (Multiple Vitamin) 1 Tab Tab 1 Tab PO QAM 12/24/13 Reported Epipen (Epinephrine) 0.3 Mg/0.3 Ml Inj 0.3 Mg IM UD PRN 12/24/13 Reported Zyrtec (Cetirizine HCl) 10 Mg Tab 10 Mg PO QAM 12/24/13 Reported Oxygen Gas 3 Liters NA CONTINOUS 07/05/12 Reported Physical Exam Vital Signs (Last 8hrs): Last 8 Hrs Date Time Temp Pulse Resp B/P (MAP) Pulse Ox O2 Delivery O2 Flow Rate FiO2 04/29/17 08:06 36.6 110 18 113/57 (75) 93 04/29/17 07:03 102 20 93 Nasal Cannula 3.0 04/29/17 04:00 BiPAP 04/29/17 04:00 36.7 66 20 122/77 (92) 98 CPAP General Appearance: Alert and Oriented x3. NAD. Head: Normocephalic Atraumatic. Eyes: PERRLA, EOMI, conjunctiva and sclera clear Neck: Supple. No carotid bruits noted. No JVD. No HJD. Respiratory: Coarse inspiratory breath sounds bilaterally Cardiovascular: Regular rhythm, no murmurs Abdomen: Normal bowel sounds, soft nontender. no abdominal bruits. Extremities: No edema, no clubbing or cyanosis. distal pulses 2/4 bilaterally. Neuro: No focal deficits. Psychiatric: Normal affect. Data Last Resulted 04/29/17 07:05 Last Resulted 04/29/17 07:05 Past 24 Hours Test 04/28/17 13:42 04/28/17 19:56 04/29/17 01:43 04/29/17 07:05 Range/Units Prothromb Time International Ratio 3.3 H 2.1 H 0.9-1.1 Prothrombin Time 37.2 H 22.9 H 9.0-12.0 SECONDS Creatine Kinase MB 2.4 2.0 0.5-3.6 ng/ml Creatine Kinase MB Ratio 2.0 2.3 0-3.0 Total Creatine Kinase 118 87 26-192 U/L Troponin I 0.019 0.017 0-0.045 ng/ml EKG on arrival revealed atrial flutter with rapid ventricular rate and right bundle branch block. Telemetry reveals recurrent controlled atrial flutter at 70 bpm at rest at present. Assessment & Plan Impression: 61-year-old female 1. Hyperkalemia 2. Recurrent atrial flutter, minimally symptomatic 3. Underlying severe hypoxemic respiratory failure with cor pulmonale physiology noted historically 4. Hyperglycemia, improved Plan: Continue oral metoprolol and IV diltiazem infusion. The patient's hyperkalemia needs to be addressed. Based on the fact that we have seen a progression in her potassium levels and serial labs, I do not think this is laboratory error. I have ordered a dose of calcium gluconate, sodium bicarbonate, dextrose, and IV insulin, as well as Kayexalate. Repeat basic metabolic panel be obtained at 4 PM. The patient is on chronic Coumadin, however a below goal INR was documented on of 1.7, and therefore would not proceed with electrical direct-current cardioversion without transesophageal echocardiogram first. The patient's chronic respiratory failure however makes transesophageal echocardiogram risk he from an airway perspective. Therefore after the hyperkalemia is resolved, we 'll continue with medication management for now, perhaps with addition of amiodarone. The patient is a poor candidate for antiarrhythmic therapy due to her history of past QT interval prolongation, need for recurrent antibiotics from a pulmonary standpoint, and treatment with psychiatric medication second interactive with anti-arrhythmic medications. I would favor using IV amiodarone on a short-term hospital basis for rhythm and rate control to avoid high risk transesophageal echocardiogram guided cardioversion if necessary, I would not continue amiodarone long-term as I would not want to expose the patient to pulmonary toxicity. The patient had a recent resting echocardiogram and I do not think this needs to be repeated. Plan discussed with patient's nurse by phone. Arianne Underwood DO
--- NOTE | 2017-04-29 14:20 | DIAGNOSTIC IMAGING REPORT ---
RIGHT FOOT MIN 3 VIEWS ROUTINE CLINICAL HISTORY: 61 years-old Female presenting with right 2nd metatarsal fracture. TECHNIQUE: Frontal, oblique, and lateral views of the right foot were obtained. COMPARISON: 04/13/2017. FINDINGS: Decreased conspicuity of the previously noted fracture plane through the base of the second metatarsal. The distal row of the tarsal bones align normally with the bases of the metatarsals. No new fracture or malalignment is evident. Osteopenia. Mild diffuse soft tissue swelling. IMPRESSION: Decreased conspicuity of the previously noted fracture through the base of the second metatarsal. No new malalignment. Electronically signed by: Erick Garner M.D. 04/29/2017 2:18 PM Dictated Date/Time: 04/29/2017 2:16 PM
--- NOTE | 2017-04-29 14:22 | DIAGNOSTIC IMAGING REPORT ---
RIGHT TIBIA/FIBULA 2 VIEWS ROUTINE CLINICAL HISTORY: Right fibular fracture COMPARISON: 04/13/2017 DISCUSSION: Their is no change in the alignment of the comminuted fracture involving the mid fibular shaft. The fractures essentially nondisplaced. No tibial fractures are visualized. The fracture lines are still visualized. Significant bridging callus is not yet visualized. IMPRESSION: No change in the alignment of the comminuted fracture involving the mid fibular shaft Electronically signed by: Cesar Lopez M.D. 04/29/2017 2:21 PM Dictated Date/Time: 04/29/2017 2:19 PM
[2017-04-29 16:54] LABS: BUN/CREATININE RATIO 26.4 (10-20); CALCIUM 8.6 mg/dl (8.5-10.1)
[2017-04-29] MEDS: WARFARIN SOD 5 MG TAB PO SCH (17:56)
--- NOTE | 2017-04-29 18:33 | Cardiology Progress Note ---
Cardiology Progress Note Date of Service Apr 29, 2017. Cardiology Progress Note repeat potassium is improved to 5 mmol/l. Still in AFL at 130-140 bpm at present. Will continue metoprolol and IV diltiazem for now, and reassess another BMP in am. Discussed plan with patient's nurse, Adryan, by telephone. JEANNIE
--- NOTE | 2017-04-29 18:41 | Medical Consult ---
Consultation Note Date of Service Apr 29, 2017. Consultation Note CHIEF COMPLAINT: Right leg injury. HISTORY OF PRESENT ILLNESS: Juliet is a pleasant 61-year-old female, who fell April 12, 2017 in her kitchen with her leg underneath her she believes. Her leg gave way due to her neuropathy. She was to have an outpatient appointment with me tomorrow, but due to her admission to the hospital, she requested that she be seen and evaluated. She notes that she has not been wearing the boot as it rubs on her leg and causes her pain. She has not removed the cast padding and Jeferson bandage she was seen 2 weeks ago. She has been admitted to the hospital due to her recent A. fib and uncontrolled diabetes. Past Medical/Surgical History Medical Problems: (1) Asthma Status: Chronic (2) Atrial fibrillation Status: Chronic (3) Bipolar disorder Status: Chronic (4) C. difficile colitis Status: Resolved (5) Chronic abdominal pain Status: Chronic (6) Chronic cor pulmonale Status: Chronic (7) Chronic pain Status: Chronic (8) Chronic respiratory failure Status: Chronic (9) COPD, severe Status: Chronic (10) Depression Status: Chronic (11) DM type 2 (diabetes mellitus, type 2) Status: Chronic (12) DVT (deep venous thrombosis) Status: Chronic (13) Gastroparesis Status: Chronic (14) GERD (gastroesophageal reflux disease) Status: Chronic (15) HTN (hypertension) Status: Chronic (16) Hypothyroidism Status: Chronic (17) DARIUS on CPAP Status: Chronic (18) Osteoarthritis Status: Chronic Surgical Problems: (1) H/O: hysterectomy Status: Chronic (2) Hx of appendectomy Status: Chronic (3) Hx of cholecystectomy Status: Chronic (4) Hx of lumpectomy Status: Chronic (5) 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 Status: Chronic (6) Hx of tubal ligation Status: Chronic (7) Hx of umbilical hernia repair Status: Chronic Family History Diabetes mellitus MOTHER FH: Crohn's disease SISTER Hypertension MOTHER Social History Smoking Status: Current Every Day Smoker Drug Use: none Marital Status: Housing status: lives with family Occupational Status: disabled Immunizations History of Influenza Vaccine: Yes Influenza Vaccine Date: May 30, 2015 History of Tetanus Vaccine?: Yes Tetanus Immunization Date: Apr 22, 2006 History of Pneumococcal: Yes Pneumococcal Date: Mar 24, 2015 Multi-Drug Resistant Organisms History of MDRO: No Allergies Coded Allergies: BEE STING (Verified Allergy, Severe, SWELLING, 04/20/17) Lisinopril (Verified Allergy, Intermediate, FACE SWELLING, 04/20/17) Metronidazole (Verified Allergy, Mild, FACE SWELLING, 04/20/17) [place] (Verified Allergy, Mild, HIVES, 04/20/17) Alprazolam (Verified Allergy, Unknown, RED FACE, FACE SWELLING, 04/20/17) Lactose (Verified Adverse Reaction, Intermediate, VOMTING DIARRHEA ABDOMINAL PAIN, 04/20/17) Prednisone (Verified Adverse Reaction, Mild, unknown, 04/20/17) Colesevelam (Verified Adverse Reaction, Unknown, unknown, 04/20/17) [place] (Verified Adverse Reaction, Unknown, jitters, 04/20/17) Uncoded Allergies: BBQ CHIPS (Allergy, Unknown, FACE SWELLING, 12/22/15) Home Medications Scheduled Amitriptyline HCl (Amitriptyline HCl), 50 MG PO HS Amlodipine Besylate (Amlodipine Besylate), 10 MG PO QAM Atorvastatin (Atorvastatin Calcium), 40 MG PO HS Calcitriol (Calcitriol), 0.5 MCG PO MWF Cetirizine (Zyrtec), 10 MG PO QAM Fentanyl (Duragesic), 50 MCG TOP CQ72HR Fluticasone Prop/Salmeterol (Advair Diskus 250/50 60 Dose), 1 PUFF INH BID Furosemide (Lasix), 20 MG PO DAILY Gabapentin (Gabapentin), 800 MG PO TID Home O2 Therapy (Oxygen), 3 LITERS NA CONTINOUS Insulin Aspart (Novolog Flexpen), 5 UNITS SC UD Insulin Glargine (Lantus Solostar), 36 UNITS SC BID Levothyroxine Sodium (Synthroid), 50 MCG PO QAM Metoclopramide Hcl (Reglan), 5 MG PO TIDM Metoprolol Tartrate (Lopressor) (Lopressor), 1 TAB PO BID Multiple Vitamin (Multivitamin), 1 TAB PO QAM Olanzapine (Olanzapine), 2.5 MG PO HS Pantoprazole (Pantoprazole Sodium), 40 MG PO DAILY Potassium Chloride Microencaps (Potassium Chloride Cr), 10 MEQ PO DAILY Tiotropium [place] (Spiriva Handihaler), 1 CAP INH DAILY Trazodone Hcl (Trazodone), 150 MG PO HS Venlafaxine Hcl (Effexor Extended Rel), 225 MG PO QAM Warfarin Sodium (Warfarin Sodium), 5 MG PO 2XWK Warfarin Sodium (Warfarin Sodium), 7.5 MG PO 5XWK PHYSICAL EXAM: Her splint was removed. Focusing on her right lower extremity, she is able to wiggle her toes and ankle up and down. She has brisk cap refill less than 2 seconds. She has slight decreased sensation over the dorsum of her foot but maintained at her toes. She has swelling about the dorsum of the foot along with peripheral vascular changes up to the mid shaft of the lower leg. She has decreased tenderness to palpation about the midshaft of the fibula. She does have pain with forefoot squeeze test. Negative calf squeeze test. Her calf is soft. VITALS: Temperature 36.8, pulse 72-139, respiratory rate 18-20, blood pressure 118/69, pulse ox 93% on 3 L nasal cannula. RADIOGRAPHS: AP and lateral right tib-fib, shows a nondisplaced fracture of the mid shaft of the fibula, unchanged alignment. 3 views of the right foot, show a nondisplaced second metatarsal base fracture, with evidence of callus formation. IMPRESSION: 1. Right fibular shaft fracture, nondisplaced, closed, subsequent visit, routine healing. 2. Right second metatarsal base fracture, nondisplaced, closed, subsequent visit, routine healing. PLAN: After lengthy discussion with Juliet today regarding my above clinical findings, as well as reviewing her radiographs, she will continue to be treated conservatively with protected weightbearing using a walker and weightbearing as tolerated in good diabetic shoes. She does not have to wear the cam boot anymore as I do not want her to develop a diabetic ulcer. She will ice and elevate. She may shower. She will follow-up in 4-6 weeks with repeat x-rays AP and lateral right tib-fib and 3 views right foot when she has been discharged from the hospital. The patient understood all my instructions and explanation; all their questions were satisfactorily addressed. Please recall if there are any other orthopedic issues.
--- NOTE | 2017-04-29 19:28 | Progress Note ---
Medicine Progress Note Date & Time of Visit: Apr 29, 2017 at 19:11. Subjective Pt was seen and examined Sitting in bed with no distress pt said that she feels much better today denies any chest pain, dizziness Objective Last 8 Hrs Date Time Temp Pulse Resp B/P (MAP) Pulse Ox O2 Delivery O2 Flow Rate FiO2 04/29/17 18:57 37.0 141 20 150/75 (100) 99 Nasal Cannula 3.0 04/29/17 16:00 Nasal Cannula 3.0 04/29/17 14:59 36.8 139 20 118/69 (85) 93 Nasal Cannula 3.0 04/29/17 12:00 Nasal Cannula 3.0 04/29/17 11:35 36.8 72 18 110/56 (74) 96 Physical Exam: General- No acute distress Head- atraumatic Eyes- PERRL, EOMI ENT- oropharynx clear Neck- supple, no JVD Lungs- No wheezing Heart- No murmur Abdomen- normal bowel sounds, soft Extremities-no calf tenderness Neuro- alert, oriented x 3; PERRL, EOMI Skin- warm & dry Laboratory Results: Last 24 Hours Test 04/28/17 19:56 04/29/17 00:13 04/29/17 01:43 04/29/17 04:12 Total Creatine Kinase 118 U/L 87 U/L Creatine Kinase MB 2.4 ng/ml 2.0 ng/ml Creatine Kinase MB Ratio 2.0 2.3 Troponin I 0.019 ng/ml 0.017 ng/ml Bedside Glucose 96 mg/dl 214 mg/dl Test 04/29/17 06:24 04/29/17 07:05 04/29/17 11:14 04/29/17 14:26 Bedside Glucose 187 mg/dl 100 mg/dl 75 mg/dl White Blood Count 10.13 K/uL Red Blood Count 3.77 M/uL Hemoglobin 11.7 g/dL Hematocrit 35.4 % Mean Corpuscular Volume 93.9 fL Mean Corpuscular Hemoglobin 31.0 pg Mean Corpuscular Hemoglobin Concent 33.1 g/dl RDW Standard Deviation 48.4 fL RDW Coefficient of Variation 14.2 % Platelet Count 298 K/uL Mean Platelet Volume 9.0 fL Prothrombin Time 22.9 SECONDS Prothromb Time International Ratio 2.1 Sodium Level 136 mmol/L Potassium Level 5.5 mmol/L Chloride Level 102 mmol/L Carbon Dioxide Level 31 mmol/L Anion Gap 3.0 mmol/L Blood Urea Nitrogen 31 mg/dl Creatinine 1.00 mg/dl Est Creatinine Clear Calc Drug Dose 66.8 ml/min Estimated GFR () 70.9 Estimated GFR (Non- 61.2 BUN/Creatinine Ratio 31.0 Random Glucose 166 mg/dl Estimated Average Glucose 235 mg/dl Hemoglobin A1c 9.8 % Calcium Level 8.8 mg/dl Test 04/29/17 14:55 04/29/17 15:38 04/29/17 16:05 04/29/17 16:17 Bedside Glucose 85 mg/dl 149 mg/dl 143 mg/dl Sodium Level 135 mmol/L Potassium Level 5.0 mmol/L Chloride Level 99 mmol/L Carbon Dioxide Level 32 mmol/L Anion Gap 4.0 mmol/L Blood Urea Nitrogen 26 mg/dl Creatinine 1.00 mg/dl Est Creatinine Clear Calc Drug Dose 66.8 ml/min Estimated GFR () 70.9 Estimated GFR (Non- 61.2 BUN/Creatinine Ratio 26.4 Random Glucose 145 mg/dl Calcium Level 8.6 mg/dl Assessment & Plan ATRIAL FLUTTER WITH RVR Sent from cardiology clinic with HR in 130s; failed recent outpatient titration of metoprolol Rate is not controlled Received IV lopressor and IV cardizem Started on cardizem drip IV amiodarone was given continue metoprolol 10mg BID cardiac marker negative cardiology on board INR 2.1 continue coumadin HYPOGLYCEMIA Presented with BSG in 40s, symptomatic Reported hyper and hypoglycemia at home Novolog sliding scale coverage pharmacy consulted for glycemic control HYPERKALEMIA K was 5.5 calcium gluconate, sodium, IV insulin, dextrose and Kayexalate given repeat K 5 continue monitor BMP CHRONIC HYPOXIC RESPIRATORY FAILURE / COPD Continue prednisone Continue supplemental O2 and Duoneb treatment DARIUS BIPAP HS while hospitalized; needs outpatient sleep study THRUSH Nystatin ordered CHRONIC DIASTOLIC CHF Compensated clinically Continue home dose of Lasix HYPERTENSION Stable, continue home meds HYPOTHYROIDISM Continue levothyroxine CHRONIC PAIN Continue Fentanyl patch RECENT RLE FRACTURE Ortho was consulted recommended to continue conservative management Right foot xray showed decreased conspicuity of the previously noted fracture through the base of the second metatarsal. No new malalignment. Right Tibia/Fibula xray showed no change in the alignment of the comminuted fracture involving the mid fibular shaft BIPOLAR DISORDER Continue home medications DVT PROPHYLAXIS On Coumadin INR 2.1 FULL CODE Current Inpatient Medications: Current Inpatient Medications Medications (Trade) Dose Ordered Sig/Artemio Route Start Time Stop Time Status Last Admin Dose Admin Acetaminophen (Tylenol Tab) 650 mg Q4H PRN PO 04/28/17 16:00 05/28/17 15:59 04/29/17 06:41 650 MG Diltiazem HCl 125 mg/Dextrose 125 ml @ 0 mls/hr Q0M PRN IV 04/28/17 16:00 05/28/17 15:59 04/29/17 06:29 10 MLS/HR Miscellaneous Information (Consult Glycemic Management Pharmacy) 1 ea UD PRN N/A 04/28/17 16:07 05/28/17 16:06 Insulin Aspart (novoLOG ASPART) SLIDING SCALE If C... ACHS SC 04/28/17 21:00 05/28/17 20:59 04/29/17 17:52 9 UNITS Glucose (Glucose 40% Gel) 15-30 GRAMS 15 GRAMS... UD PRN PO 04/28/17 16:15 05/28/17 16:14 Glucose (Glucose Chew Tab) 4-8 Tablets 4 Tabl... UD PRN PO 04/28/17 16:15 05/28/17 16:14 Dextrose (Dextrose 50% 50ML Syringe) 25-50ML OF 50% DW IV FOR... UD PRN IV 04/28/17 16:15 05/28/17 16:14 Glucagon (Glucagon Inj) 1 mg UD PRN SQ 04/28/17 16:15 05/28/17 16:14 Amitriptyline HCl (Elavil Tab) 50 mg HS PO 04/28/17 21:00 05/28/17 20:59 04/28/17 20:20 50 MG Atorvastatin Calcium (Lipitor Tab) 40 mg HS PO 04/28/17 21:00 05/28/17 20:59 04/28/17 20:20 40 MG Cetirizine HCl (zyrTEC TAB) 10 mg QAM PO 04/29/17 09:00 05/29/17 08:59 04/29/17 08:55 10 MG Epinephrine (Epipen) 0.3 mg UD PRN IM 04/28/17 16:15 05/28/17 16:14 Fentanyl (Duragesic Patch) 50 mcg Q72H TD 04/30/17 11:00 05/14/17 10:59 Furosemide (Lasix Tab) 20 mg DAILY PO 04/29/17 09:00 05/29/17 08:59 04/29/17 08:55 20 MG Gabapentin (Neurontin Tab) 800 mg TID PO 04/28/17 21:00 05/28/17 20:59 04/29/17 13:45 800 MG Levothyroxine Sodium (Synthroid Tab) 50 mcg DAILYBB PO 04/29/17 06:00 05/29/17 05:59 04/29/17 06:27 50 MCG Metoclopramide HCl (Reglan Tab) 5 mg TIDM PO 04/28/17 18:00 05/28/17 17:59 04/29/17 17:57 5 MG Metoprolol Tartrate (Lopressor Tab) 100 mg BID PO 04/28/17 21:00 05/28/17 20:59 04/29/17 08:57 100 MG Multivitamins (Multivitamin Tab) 1 tab QAM PO 04/29/17 09:00 05/29/17 08:59 04/29/17 08:54 1 TAB Olanzapine (Zyprexa Tab) 2.5 mg HS PO 04/28/17 21:00 05/28/17 20:59 04/28/17 20:21 2.5 MG Pantoprazole Sodium (Protonix Tab) 40 mg DAILY PO 04/29/17 09:00 05/29/17 08:59 04/29/17 08:54 40 MG Trazodone HCl (Desyrel Tab) 150 mg HS PO 04/28/17 21:00 05/28/17 20:59 04/28/17 20:19 150 MG Venlafaxine HCl (effeXOR EXTENDED REL CAP) 225 mg QAM PO 04/29/17 09:00 05/29/17 08:59 04/29/17 08:55 225 MG Warfarin Sodium (Coumadin Tab) 5 mg SuTh@1600 PO 05/01/17 16:00 05/31/17 15:59 Warfarin Sodium (Coumadin Tab) 7.5 mg MoTuWeFrSa@1600 PO 04/29/17 16:00 9/14/17 15:59 04/29/17 17:56 7.5 MG Calcitriol (Rocaltrol Cap) 0.25 mcg MoWeFr@0900 PO 04/30/17 09:00 05/30/17 08:59 Nystatin (Mycostatin Susp) 5 ml QID PO 04/28/17 17:00 05/08/17 16:59 04/29/17 17:57 5 ML Ipratropium [place] (Atrovent 0.02% 0.5MG/2.5ML Neb) 0.5 mg Q6R INH 04/28/17 21:00 05/28/17 20:59 04/29/17 07:03 0.5 MG Levalbuterol (Xopenex 1.25MG/ 0.5ML Neb) 1.25 mg Q6R INH 04/28/17 21:00 05/28/17 20:59 04/29/17 07:03 1.25 MG Miscellaneous (Fentanyl Patch Remove & Waste) 1 ea Q3D@1059 N/A 04/30/17 10:59 05/30/17 10:58 Miscellaneous Information (Check Fentanyl Patch Placement) 1 ea QS N/A 04/29/17 00:00 05/29/17 00:00 04/29/17 16:00 1 EA Prednisone (PredniSONE TAB) 40 mg DAILY PO 04/29/17 09:00 05/04/17 08:59 04/29/17 10:23 40 MG Oxycodone HCl (Roxicodone Immediate Rel Tab) 10 mg Q6H PRN PO 04/29/17 10:30 05/13/17 10:29 04/29/17 17:57 10 MG Insulin Glargine (Lantus Solostar Pen) SEE PROTOCOL TEXT BID SC 04/29/17 21:00 05/29/17 20:59 Insulin Aspart (novoLOG ASPART) SLIDING SCALE If C... 0200 ONCE SC 04/30/17 02:00 04/30/17 02:01
[2017-04-29] MEDS: ATORVASTATIN 40 MG TAB PO SCH (20:47)
[2017-04-29] MEDS: AMITRIPTYLINE HCL 50 MG TAB PO SCH (20:48)
[2017-04-29] MEDS: TRAZODONE HCL 50 MG TAB PO SCH (20:48)
[2017-04-29] MEDS: OLANZAPINE 2.5 MG TAB PO SCH (20:49)
[2017-04-30] VITALS (12 sets, daily range): BP systolic 107–128; BP diastolic 60–72; PULSE 62–84; TEMP 36.4–36.8; O2SAT 94–99
[2017-04-30] MEDS ORDERED: INSULIN ASPART 100 UNITS/ML 3 ML PEN SC ONE (02:00)
[2017-04-30] MEDS: DILTIAZEM HCL INJ 125 MG in DEXTROSE 5% 100ML IV PRN ×3 (02:01→21:22)
[2017-04-30] MEDS: LEVALBUTEROL 1.25MG/0.5ML NEB INH SCH ×4 (02:24→20:06)
[2017-04-30] MEDS: IPRATROPIUM BROMIDE NEB SOLN 0.02% 2.5 ML VIAL INH SCH ×4 (02:24→20:06)
[2017-04-30] MEDS: LEVOTHYROXINE 50 MCG TAB PO SCH (06:05)
[2017-04-30 07:28] LABS: HEMATOCRIT 33.5 % (37-47); MEAN CELL VOLUME 95.4 fL (80-100); MEAN CORPUSCULAR HEMOGLOBIN 30.8 pg (25-34); MEAN CORPUSCULAR HGB CONC 32.2 g/dl (32-36); MEAN PLATELET VOLUME 8.6 fL (7.4-10.4); PLATELET COUNT 273 K/uL (130-400); RED BLOOD COUNT 3.51 M/uL (4.2-5.4)
[2017-04-30 07:35] LABS: INR 1.7 (0.9-1.1)
[2017-04-30] MEDS: MULTIVITAMIN TAB PO SCH (07:52)
[2017-04-30] MEDS: CALCITRIOL 0.25 MCG CAP PO SCH (07:52)
[2017-04-30] MEDS: METOPROLOL TARTRATE 100 MG TAB PO SCH ×2 (07:52→21:14)
[2017-04-30] MEDS: CETIRIZINE HCL 10 MG TAB PO SCH (07:53)
[2017-04-30] MEDS: GABAPENTIN 800 MG TAB PO SCH ×3 (07:53→21:15)
[2017-04-30] MEDS: METOCLOPRAMIDE HCL 10 MG TAB PO SCH ×3 (07:54→17:40)
[2017-04-30] MEDS: PANTOprazole SOD 40 MG TAB PO SCH (07:54)
[2017-04-30] MEDS: NYSTATIN SUSP 500,000 U/5 ML UDC PO SCH ×4 (07:55→21:14)
[2017-04-30 07:56] LABS: BUN/CREATININE RATIO 24.2 (10-20); CALCIUM 8.5 mg/dl (8.5-10.1); POTASSIUM 4.3 mmol/L (3.5-5.1)
[2017-04-30] MEDS: VENLAFAXINE HCL XR 75 MG CAPXR PO SCH (07:56)
[2017-04-30] MEDS: CHECK FENTANYL PATCH PLACEMENT SCH ×3 (07:57→23:39)
[2017-04-30] MEDS: FUROSEMIDE 20 MG TAB PO SCH (07:58)
[2017-04-30] MEDS: INSULIN ASPART 100 UNITS/ML 3 ML PEN SC SCH ×4 (08:05→21:21)
[2017-04-30] MEDS: INSULIN GLARGINE SOLOSTAR 100 UNITS/ML 3 ML PEN SC SCH (08:06)
[2017-04-30 09:22] LABS: PARTIAL THROMBOPLASTIN RATIO 1.1
[2017-04-30] MEDS: OXYCODONE HCL IR 5 MG TAB (IMMEDIATE RELEASE) PO PRN ×2 (09:29→17:46)
--- NOTE | 2017-04-30 09:50 | Pharmacy Progress Note ---
Glycemic Control Progress Note Date of Service Apr 30, 2017. Scope Glycemic Pharmacist consulted for glycemic control to write orders per [facility] inpatient glycemic control protocol. Objective Accuchecks BSG (last 24hrs): Test 04/29/17 11:14 04/29/17 14:26 04/29/17 14:55 04/29/17 15:38 Bedside Glucose 100 mg/dl (70-90) 75 mg/dl (70-90) 85 mg/dl (70-90) 149 mg/dl (70-90) Test 04/29/17 16:05 04/29/17 16:17 04/29/17 20:20 04/30/17 01:59 Bedside Glucose 143 mg/dl (70-90) 249 mg/dl (70-90) 98 mg/dl (70-90) Random Glucose 145 mg/dl (70-99) Test 04/30/17 03:30 04/30/17 06:39 04/30/17 07:07 Bedside Glucose 135 mg/dl (70-90) 129 mg/dl (70-90) Random Glucose 127 mg/dl (70-99) HbA1c: Test 04/29/17 07:05 Hemoglobin A1c 9.8 % (4.5-5.6) H Recent Pertinent Medications The patient is currently receiving: * Basal insulin: 04/28 Lantus 36 units in AM, 20 units in PM 04/29 Lantus 38 units in AM, 24 units in PM * Correctional Insulin: Novolog Correction per scale ACHS + 0200 Goal Range: Low 140 mg/dL - High 180 mg/dL Correction Factor: 15 mg/dL/unit * Prandial insulin: Per carb ratio of 1 unit per 6 grams CHO consumed Assessment & Plan ASSESSMENT: * See progress note from 04/29 for more background info, in short: * Pt receiving SQ basal bolus insulin regimen for hyperglycemia secondary to baseline DM (outpatient regimen on hold),stress/infection, steroids (on prednisone 40 mg daily) * Patient is currently receiving an average of 110 units of insulin per day ( compared to ~150 units/day on previous admissions on prednisone 40 mg) * BSGs ranging 75-249 over the past 24hrs * Risk factors for insulin resistance are constant over the past 24hrs * Steroid dosing unchanged * Changes to insulin regimen d/t : * AM Fasting BSG = 129 - this looks great so will continue w/ same basal dose but continue to give higher dose in the AM since patient on once daily prednisone and effects are usually increased during the day * Post-prandial BSGs are elevated/BSGs rise throughout the day therefore Tighten CR back to 1 unit per 4 gm CHO PLAN FOR INPATIENT GLYCEMIC CONTROL: * Change Lantus to 38 units in the AM, 24 units in the PM * Continue correction factor of 15 mg/dl/unit * TIGHTEN carb ratio back to 1 unit per 4 grams CHO consumed * TIGHTEN goal range to Low 110 mg/dL - High 150 mg/dL (now that patient no longer having severe hypoglycemia) RECOMMENDATIONS FOR DISCHARGE: * Outpatient regimen will need adjusted if patient will not be discharged on steroids since patient was having lows DIPPER AND BAKER. Will plan to f/u closer to discharge depending on plan for outpatient steroids. Thank you.
[2017-04-30] MEDS: HEPARIN 25,000 UNIT/500ML D5W 500 ML IV PRN ×2 (09:59→18:46)
[2017-04-30] MEDS: FENTANYL PATCH REMOVE & WASTE SCH (10:30)
[2017-04-30] MEDS: FENTANYL 50 MCG/HR TDSY TD SCH (10:30)
[2017-04-30] MEDS ORDERED: NURSING VERBAL MED ORDER ONE ×2 (13:45→14:15)
[2017-04-30] MEDS ORDERED: POLYETHYLENE (MIRALAX) 17 GM PACK PO ONE (14:00)
[2017-04-30] MEDS ORDERED: NICOTINE 21 MG/24 HR TDSY TD ONE (14:00)
--- NOTE | 2017-04-30 14:23 | Cardiology Follow-Up ---
Subjective General Date of Service: Apr 30, 2017. Chief Complaint: follow up atrial flutter Pt evaluation today including: conversation w/ patient, physical exam History of Present Illness The patient is a 61 year old female seen in follow up. Patient denies chest pain. Feeling well. Telemetry and EKG reveals AFL in 60-70' s with RBBB on diltiazem gtt at 12.5 mg/hr. Allergies Coded Allergies: BEE STING (Verified Allergy, Severe, SWELLING, 04/20/17) Lisinopril (Verified Allergy, Intermediate, FACE SWELLING, 04/20/17) Potato (Verified Allergy, Intermediate, BBQ chips - facial swelling, ) Metronidazole (Verified Allergy, Mild, FACE SWELLING, 04/20/17) [place] (Verified Allergy, Mild, HIVES, 04/20/17) Alprazolam (Verified Allergy, Unknown, RED FACE, FACE SWELLING, 04/20/17) Lactose (Verified Adverse Reaction, Intermediate, VOMTING DIARRHEA ABDOMINAL PAIN, 04/20/17) Prednisone (Verified Adverse Reaction, Mild, unknown, 04/20/17) Colesevelam (Verified Adverse Reaction, Unknown, unknown, 04/20/17) Jackson (Verified Adverse Reaction, Unknown, jitters, 04/20/17) Social History Smoking Status: Current Every Day Smoker Hx Tobacco Use In Past Year?: Yes Hx Alcohol Use - Type And Amou: No Hx Substance Use - Type And Am: Yes (pain and anxiety meds) Problem List Medical Problems: (1) Acute gastroenteritis Status: Acute (2) Altered mental status Status: Acute (3) Atrial flutter with rapid ventricular response Status: Acute (4) Back pain Status: Acute (5) Bradycardia Status: Acute (6) Bronchitis Status: Acute (7) Bronchitis Status: Acute (8) CAP (community acquired pneumonia) Status: Acute (9) Cellulitis Status: Acute (10) Cervical radiculopathy Status: Acute (11) Chest pain Status: Acute (12) Chest pain of unknown etiology Status: Acute (13) Chest wall pain Status: Acute (14) Chest wall pain Status: Acute (15) CHF exacerbation Status: Acute (16) Chronic right shoulder pain Status: Acute (17) Congestive heart failure Status: Acute (18) Congestive heart failure Status: Acute (19) COPD exacerbation Status: Acute (20) COPD exacerbation Status: Acute (21) COPD exacerbation Status: Acute (22) Cough Status: Acute (23) Dehydration Status: Acute (24) Depressed Status: Acute (25) Diarrhea Status: Acute (26) Diarrhea Status: Acute (27) Diarrhea Status: Acute (28) Diffuse abdominal pain Status: Acute (29) Diffuse abdominal pain Status: Acute (30) Dysuria Status: Acute (31) Erythema of face Status: Acute (32) Fatigue Status: Acute (33) Fluid overload Status: Acute (34) Generalized weakness Status: Acute (35) Headache Status: Acute (36) History of COPD Status: Acute (37) Hyperglycemia Status: Acute (38) Hypoxia Status: Acute (39) Leukocytosis Status: Acute (40) Lower back pain Status: Acute (41) Pelvic cyst Status: Acute (42) PNA (pneumonia) Status: Acute (43) Rash Status: Acute (44) Request for narcotic pain medication Status: Acute (45) Respiratory failure Status: Acute (46) Right fibular fracture Status: Acute (47) Right leg pain Status: Acute (48) Shortness of breath Status: Acute (49) Shortness of breath Status: Acute (50) Tobacco use Status: Acute (51) Urinary tract infection Status: Acute (52) UTI (urinary tract infection) Status: Acute (53) Weakness Status: Acute (54) Wheezing Status: Acute Physical Exam Vital Signs Last Vital Signs Documentation Date Time Temp Pulse Resp B/P (MAP) Pulse Ox O2 Delivery O2 Flow Rate FiO2 04/30/17 12:00 Nasal Cannula 3.0 04/30/17 11:28 36.7 72 20 107/60 (76) 97 Physical Exam Constitutional: Level of Distress: NAD Neck: supple Lungs: Auscultation: CTA except as noted, no wheezing, no rales/crackles Cardiovascular: Heart Auscultation: RRR, no murmurs, no rubs, no gallops Extremities: no cyanosis, no edema, no varicosities Neurologic: Gait & Station: pertinent finding (no focal defitics ) Assessment and Plan Assessment and Plan Impression: 61 year old female 1. Recurrent atrial flutter, RVR 2. Underlying severe COPD 3. Normal LVEF , echo at [facility] 04/07/17, despite history of cor pulmonale , normal RV size and RVEF noted at time of echo 4. Remove mitral valve repair , due to valve strands, cardioembolic stroke Plan: Pt is a poor candidate for antiarrhythmic therapy due to h/o QT prolongation and need for antibiotics and psychiatry medications. I am going to have EP see pt to consider AFL ablation. Given INR < 2, will require HUSSEIN prior to cardioversion or ablation. Continue current meds. Arianne Underwood DO Laboratory Results Last 24 Hours Test 04/29/17 14:26 04/29/17 14:55 04/29/17 15:38 04/29/17 16:05 Bedside Glucose 75 mg/dl 85 mg/dl 149 mg/dl 143 mg/dl Test 04/29/17 16:17 04/29/17 20:20 04/30/17 01:59 04/30/17 03:30 Sodium Level 135 mmol/L Potassium Level 5.0 mmol/L Chloride Level 99 mmol/L Carbon Dioxide Level 32 mmol/L Anion Gap 4.0 mmol/L Blood Urea Nitrogen 26 mg/dl Creatinine 1.00 mg/dl Est Creatinine Clear Calc Drug Dose 66.8 ml/min Estimated GFR () 70.9 Estimated GFR (Non- 61.2 BUN/Creatinine Ratio 26.4 Random Glucose 145 mg/dl Calcium Level 8.6 mg/dl Bedside Glucose 249 mg/dl 98 mg/dl 135 mg/dl Test 04/30/17 06:39 04/30/17 07:07 04/30/17 10:42 Bedside Glucose 129 mg/dl 83 mg/dl White Blood Count 11.80 K/uL Red Blood Count 3.51 M/uL Hemoglobin 10.8 g/dL Hematocrit 33.5 % Mean Corpuscular Volume 95.4 fL Mean Corpuscular Hemoglobin 30.8 pg Mean Corpuscular Hemoglobin Concent 32.2 g/dl RDW Standard Deviation 49.7 fL RDW Coefficient of Variation 14.4 % Platelet Count 273 K/uL Mean Platelet Volume 8.6 fL Prothrombin Time 19.0 SECONDS Prothromb Time International Ratio 1.7 Activated Partial Thromboplast Time 28.5 SECONDS Partial Thromboplastin Ratio 1.1 Sodium Level 139 mmol/L Potassium Level 4.3 mmol/L Chloride Level 101 mmol/L Carbon Dioxide Level 35 mmol/L Anion Gap 3.0 mmol/L Blood Urea Nitrogen 24 mg/dl Creatinine 1.00 mg/dl Est Creatinine Clear Calc Drug Dose 66.5 ml/min Estimated GFR () 70.9 Estimated GFR (Non- 61.2 BUN/Creatinine Ratio 24.2 Random Glucose 127 mg/dl Calcium Level 8.5 mg/dl
--- NOTE | 2017-04-30 14:58 | Cardiology Progress Note ---
Cardiology Progress Note Date of Service Apr 30, 2017. Cardiology Progress Note Due to scheduling concerns, No HUSSEIN or ablation 04/30/17, will cancel NPO order. Plan for procedure on 05/01/[address] NPO orders tomorrow.
[2017-04-30] MEDS: WARFARIN SOD 5 MG TAB PO SCH (16:03)
[2017-04-30 16:23] LABS: PARTIAL THROMBOPLASTIN RATIO 1.4
--- NOTE | 2017-04-30 16:29 | Progress Note ---
Medicine Progress Note Date & Time of Visit: Apr 30, 2017 at 16:25. Subjective Pt was seen and examined Lying in bed with no distress Pt said that she feel fine denies any chest pain, palpitation, dizziness and SOB Objective Last 8 Hrs Date Time Temp Pulse Resp B/P (MAP) Pulse Ox O2 Delivery O2 Flow Rate FiO2 04/30/17 15:03 36.7 68 21 108/72 (84) 99 Room Air 04/30/17 14:21 68 18 97 Nasal Cannula 3.0 04/30/17 12:00 Nasal Cannula 3.0 04/30/17 11:28 36.7 72 20 107/60 (76) 97 Nasal Cannula 2.0 Physical Exam: General- No acute distress Head- atraumatic Eyes- PERRL, EOMI ENT- oropharynx clear Neck- supple, no JVD Lungs- No wheezing Heart- No murmur Abdomen- normal bowel sounds, soft Extremities-no calf tenderness Neuro- alert, oriented x 3; PERRL, EOMI Skin- warm & dry Laboratory Results: Last 24 Hours Test 04/29/17 20:20 04/30/17 01:59 04/30/17 03:30 04/30/17 06:39 Bedside Glucose 249 mg/dl 98 mg/dl 135 mg/dl 129 mg/dl Test 04/30/17 07:07 04/30/17 10:42 04/30/17 15:52 White Blood Count 11.80 K/uL Red Blood Count 3.51 M/uL Hemoglobin 10.8 g/dL Hematocrit 33.5 % Mean Corpuscular Volume 95.4 fL Mean Corpuscular Hemoglobin 30.8 pg Mean Corpuscular Hemoglobin Concent 32.2 g/dl RDW Standard Deviation 49.7 fL RDW Coefficient of Variation 14.4 % Platelet Count 273 K/uL Mean Platelet Volume 8.6 fL Prothrombin Time 19.0 SECONDS Prothromb Time International Ratio 1.7 Activated Partial Thromboplast Time 28.5 SECONDS 36.1 SECONDS Partial Thromboplastin Ratio 1.1 1.4 Sodium Level 139 mmol/L Potassium Level 4.3 mmol/L Chloride Level 101 mmol/L Carbon Dioxide Level 35 mmol/L Anion Gap 3.0 mmol/L Blood Urea Nitrogen 24 mg/dl Creatinine 1.00 mg/dl Est Creatinine Clear Calc Drug Dose 66.5 ml/min Estimated GFR () 70.9 Estimated GFR (Non- 61.2 BUN/Creatinine Ratio 24.2 Random Glucose 127 mg/dl Calcium Level 8.5 mg/dl Bedside Glucose 83 mg/dl Assessment & Plan ATRIAL FLUTTER WITH RVR Sent from cardiology clinic with HR in 130s; failed recent outpatient titration of metoprolol Rate is controlled Received IV lopressor and IV cardizem On cardizem drip IV amiodarone was given continue metoprolol 100mg BID Not a good candidate for antiarrhythmic med due to QT prolongation cardiac marker negative cardiology on board INR 1.7 Starting on heparin drip Plan for HUSSEIN and cardioversion possible on Friday Consider AFL ablation. Continue Coumadin HYPOGLYCEMIA Presented with BSG in 40s, symptomatic Reported hyper and hypoglycemia at home Novolog sliding scale coverage pharmacy consulted for glycemic control BS has been stable HYPERKALEMIA received calcium gluconate, sodium, IV insulin, dextrose and Kayexalate K is stable continue monitor BMP CHRONIC HYPOXIC RESPIRATORY FAILURE / COPD Continue prednisone Continue supplemental O2 and Duoneb treatment DARIUS BIPAP HS while hospitalized; needs outpatient sleep study THRUSH Nystatin ordered CHRONIC DIASTOLIC CHF Compensated clinically Continue home dose of Lasix HYPERTENSION Stable, continue home meds HYPOTHYROIDISM Continue levothyroxine CHRONIC PAIN Continue Fentanyl patch RECENT RLE FRACTURE Ortho was consulted recommended to continue conservative management Right foot xray showed decreased conspicuity of the previously noted fracture through the base of the second metatarsal. No new malalignment. Right Tibia/Fibula xray showed no change in the alignment of the comminuted fracture involving the mid fibular shaft Weightbearing using a walker and weightbearing as tolerated in good diabetic shoes. Follow-up in 4-6 weeks with repeat x-rays AP and lateral right tib-fib and 3 views right foot BIPOLAR DISORDER Continue home medications DVT PROPHYLAXIS On Coumadin INR 1.7 on heparin drip FULL CODE Consultants: cardiology Current Inpatient Medications: Current Inpatient Medications Medications (Trade) Dose Ordered Sig/Artemio Route Start Time Stop Time Status Last Admin Dose Admin Acetaminophen (Tylenol Tab) 650 mg Q4H PRN PO 04/28/17 16:00 05/28/17 15:59 04/29/17 06:41 650 MG Diltiazem HCl 125 mg/Dextrose 125 ml @ 0 mls/hr Q0M PRN IV 04/28/17 16:00 05/28/17 15:59 04/30/17 13:33 12.5 MLS/HR Miscellaneous Information (Consult Glycemic Management Pharmacy) 1 ea UD PRN N/A 04/28/17 16:07 05/28/17 16:06 Insulin Aspart (novoLOG ASPART) SLIDING SCALE If C... ACHS SC 04/28/17 21:00 05/28/17 20:59 04/30/17 11:49 6 UNITS Glucose (Glucose 40% Gel) 15-30 GRAMS 15 GRAMS... UD PRN PO 04/28/17 16:15 05/28/17 16:14 Glucose (Glucose Chew Tab) 4-8 Tablets 4 Tabl... UD PRN PO 04/28/17 16:15 05/28/17 16:14 Dextrose (Dextrose 50% 50ML Syringe) 25-50ML OF 50% DW IV FOR... UD PRN IV 04/28/17 16:15 05/28/17 16:14 Glucagon (Glucagon Inj) 1 mg UD PRN SQ 04/28/17 16:15 05/28/17 16:14 Amitriptyline HCl (Elavil Tab) 50 mg HS PO 04/28/17 21:00 05/28/17 20:59 04/29/17 20:48 50 MG Atorvastatin Calcium (Lipitor Tab) 40 mg HS PO 04/28/17 21:00 05/28/17 20:59 04/29/17 20:47 40 MG Cetirizine HCl (zyrTEC TAB) 10 mg QAM PO 04/29/17 09:00 05/29/17 08:59 04/30/17 07:53 10 MG Epinephrine (Epipen) 0.3 mg UD PRN IM 04/28/17 16:15 05/28/17 16:14 Fentanyl (Duragesic Patch) 50 mcg Q72H TD 04/30/17 11:00 05/14/17 10:59 04/30/17 10:30 50 MCG Furosemide (Lasix Tab) 20 mg DAILY PO 04/29/17 09:00 05/29/17 08:59 04/30/17 07:58 20 MG Gabapentin (Neurontin Tab) 800 mg TID PO 04/28/17 21:00 05/28/17 20:59 04/30/17 13:33 800 MG Levothyroxine Sodium (Synthroid Tab) 50 mcg DAILYBB PO 04/29/17 06:00 05/29/17 05:59 04/30/17 06:05 50 MCG Metoclopramide HCl (Reglan Tab) 5 mg TIDM PO 04/28/17 18:00 05/28/17 17:59 04/30/17 11:32 5 MG Metoprolol Tartrate (Lopressor Tab) 100 mg BID PO 04/28/17 21:00 05/28/17 20:59 04/30/17 07:52 100 MG Multivitamins (Multivitamin Tab) 1 tab QAM PO 04/29/17 09:00 05/29/17 08:59 04/30/17 07:52 1 TAB Olanzapine (Zyprexa Tab) 2.5 mg HS PO 04/28/17 21:00 05/28/17 20:59 04/29/17 20:49 2.5 MG Pantoprazole Sodium (Protonix Tab) 40 mg DAILY PO 04/29/17 09:00 05/29/17 08:59 04/30/17 07:54 40 MG Trazodone HCl (Desyrel Tab) 150 mg HS PO 04/28/17 21:00 05/28/17 20:59 04/29/17 20:48 150 MG Venlafaxine HCl (effeXOR EXTENDED REL CAP) 225 mg QAM PO 04/29/17 09:00 05/29/17 08:59 04/30/17 07:56 225 MG Warfarin Sodium (Coumadin Tab) 5 mg SuTh@1600 PO 05/01/17 16:00 05/31/17 15:59 Warfarin Sodium (Coumadin Tab) 7.5 mg MoTuWeFrSa@1600 PO 04/29/17 16:00 05/29/17 15:59 04/30/17 16:03 7.5 MG Calcitriol (Rocaltrol Cap) 0.25 mcg MoWeFr@0900 PO 04/30/17 09:00 05/30/17 08:59 04/30/17 07:52 0.25 MCG Nystatin (Mycostatin Susp) 5 ml QID PO 04/28/17 17:00 05/08/17 16:59 04/30/17 11:49 5 ML Ipratropium [place] (Atrovent 0.02% 0.5MG/2.5ML Neb) 0.5 mg Q6R INH 04/28/17 21:00 05/28/17 20:59 04/30/17 14:21 0.5 MG Levalbuterol (Xopenex 1.25MG/ 0.5ML Neb) 1.25 mg Q6R INH 04/28/17 21:00 05/28/17 20:59 04/30/17 14:21 1.25 MG Miscellaneous (Fentanyl Patch Remove & Waste) 1 ea Q3D@1059 N/A 04/30/17 10:59 05/30/17 10:58 04/30/17 10:30 1 EA Miscellaneous Information (Check Fentanyl Patch Placement) 1 ea QS N/A 04/29/17 00:00 05/29/17 00:00 04/30/17 15:46 1 EA Prednisone (PredniSONE TAB) 40 mg DAILY PO 04/29/17 09:00 05/04/17 08:59 04/30/17 07:55 40 MG Oxycodone HCl (Roxicodone Immediate Rel Tab) 10 mg Q6H PRN PO 04/29/17 10:30 05/13/17 10:29 04/30/17 09:29 10 MG Insulin Glargine (Lantus Solostar Pen) 38 units QAM SC 04/30/17 09:00 05/30/17 08:59 04/30/17 08:06 38 UNITS Insulin Glargine (Lantus Solostar Pen) 24 units PM SC 04/30/17 21:00 05/30/17 20:59 Heparin Sodium/ Dextrose 500 ml @ 25 mls/hr Q20H PRN IV 04/30/17 09:30 05/30/17 09:29 04/30/17 09:59 25 MLS/HR Polyethylene (Miralax Powder Packet) 17 gm QAM PO 05/01/17 09:00 05/31/17 08:59 Nicotine (Nicoderm Cq 21MG Patch) 1 patch QAM EXT 05/01/17 09:00 05/31/17 08:59 Miscellaneous (Remove Nicoderm Patch) 1 ea HS N/A 04/30/17 21:00 05/30/17 20:59
--- NOTE | 2017-04-30 17:28 | Cardiology Consultation ---
Cardiology Consultation Date of Consultation: Apr 30, 2017. Requesting Physician: Dr. Underwood Reason for Consultation: Atrial flutter with rapid ventricular response Pt evaluation today including: conversation w/ patient, conversation w/ family , physical exam, lab review, review of studies, conversation w/ it consultant, review of inpatient medication list History of Present Illness This is a very pleasant 61-year-old woman with severe obstructive lung disease, diabetes mellitus, a mitral valve repair in the past following cardioembolic strokes who also has a history of atrial flutter which I believe was identified around 2012. At that time she required cardioversion, she then had another episode of atrial flutter treated with diltiazem and spontaneous conversion back to sinus rhythm. More recently she has had recurrence of her arrhythmia, around one week ago she was seen for cardiology follow-up and was noted to be in atrial flutter with a heart rate of 150 bpm. She has been maintained on warfarin although the INR has been somewhat on the low side. During this hospitalization on intravenous diltiazem, in addition to oral metoprolol tartrate 100 mg twice a day, her heart rate has tended to be fast, often with 2- 1 atrial flutter. Echocardiography 04/07/2017 showed normal left ventricular size and function with moderate left ventricular hypertrophy. Left atrium was moderately dilated as well. Cardiac catheterization in 2004 showed no obstructive disease, this admission cardiac enzymes have been negative despite the high heart rates. Past Medical/Surgical History (1) PAF (paroxysmal atrial fibrillation) (2) Osteoarthritis (3) Depression (4) COPD, severe (5) DVT (deep venous thrombosis) (6) GERD (gastroesophageal reflux disease) (7) Gastroparesis (8) Hypothyroidism (9) HTN (hypertension) (10) DM type 2 (diabetes mellitus, type 2) (11) [place] toxicity (12) Hx of tubal ligation (13) Hx of lumpectomy (14) Hx of cholecystectomy (15) Hx of umbilical hernia repair (16) Hx of appendectomy (17) H/O: hysterectomy (18) Hx of mitral valve repair Family History Diabetes mellitus MOTHER FH: Crohn's disease SISTER Hypertension MOTHER Social History Smoking Status: Current Every Day Smoker History of Alcohol Use: No Review of Systems Constitutional: No fever, No weight loss, No weakness Respiratory: No cough, No wheezing, No shortness of breath, No dyspnea on exertion Cardiac: No chest pain, No orthopnea, No PND, No edema, No palpitations Abdomen: No pain, No nausea, No vomiting, No diarrhea, No GI bleeding Female : No problem reported Neurologic: No paralysis, No weakness, No numbness/tingling, No balance problems Heme: No abnormal bleeding/bruising, No clotting problems Endo: No fatigue Skin: No problem reported All Other Systems: Reviewed and Negative Allergies Coded Allergies: BEE STING (Verified Allergy, Severe, SWELLING, 04/20/17) Lisinopril (Verified Allergy, Intermediate, FACE SWELLING, 04/20/17) Potato (Verified Allergy, Intermediate, BBQ chips - facial swelling, ) Metronidazole (Verified Allergy, Mild, FACE SWELLING, 04/20/17) [place] (Verified Allergy, Mild, HIVES, 04/20/17) Alprazolam (Verified Allergy, Unknown, RED FACE, FACE SWELLING, 04/20/17) Lactose (Verified Adverse Reaction, Intermediate, VOMTING DIARRHEA ABDOMINAL PAIN, 04/20/17) Prednisone (Verified Adverse Reaction, Mild, unknown, 04/20/17) Colesevelam (Verified Adverse Reaction, Unknown, unknown, 04/20/17) [place] (Verified Adverse Reaction, Unknown, jitters, 04/20/17) Medications Current Inpatient Medications Medications (Trade) Dose Ordered Sig/Artemio Route Start Time Stop Time Status Last Admin Dose Admin Acetaminophen (Tylenol Tab) 650 mg Q4H PRN PO 04/28/17 16:00 05/28/17 15:59 04/29/17 06:41 650 MG Diltiazem HCl 125 mg/Dextrose 125 ml @ 0 mls/hr Q0M PRN IV 04/28/17 16:00 05/28/17 15:59 04/30/17 13:33 12.5 MLS/HR Miscellaneous Information (Consult Glycemic Management Pharmacy) 1 ea UD PRN N/A 04/28/17 16:07 05/28/17 16:06 Insulin Aspart (novoLOG ASPART) SLIDING SCALE If C... ACHS SC 04/28/17 21:00 05/28/17 20:59 04/30/17 11:49 6 UNITS Glucose (Glucose 40% Gel) 15-30 GRAMS 15 GRAMS... UD PRN PO 04/28/17 16:15 05/28/17 16:14 Glucose (Glucose Chew Tab) 4-8 Tablets 4 Tabl... UD PRN PO 04/28/17 16:15 05/28/17 16:14 Dextrose (Dextrose 50% 50ML Syringe) 25-50ML OF 50% DW IV FOR... UD PRN IV 04/28/17 16:15 05/28/17 16:14 Glucagon (Glucagon Inj) 1 mg UD PRN SQ 04/28/17 16:15 05/28/17 16:14 Amitriptyline HCl (Elavil Tab) 50 mg HS PO 04/28/17 21:00 05/28/17 20:59 04/29/17 20:48 50 MG Atorvastatin Calcium (Lipitor Tab) 40 mg HS PO 04/28/17 21:00 05/28/17 20:59 04/29/17 20:47 40 MG Cetirizine HCl (zyrTEC TAB) 10 mg QAM PO 04/29/17 09:00 05/29/17 08:59 04/30/17 07:53 10 MG Epinephrine (Epipen) 0.3 mg UD PRN IM 04/28/17 16:15 05/28/17 16:14 Fentanyl (Duragesic Patch) 50 mcg Q72H TD 04/30/17 11:00 05/14/17 10:59 04/30/17 10:30 50 MCG Furosemide (Lasix Tab) 20 mg DAILY PO 04/29/17 09:00 05/29/17 08:59 04/30/17 07:58 20 MG Gabapentin (Neurontin Tab) 800 mg TID PO 04/28/17 21:00 05/28/17 20:59 04/30/17 13:33 800 MG Levothyroxine Sodium (Synthroid Tab) 50 mcg DAILYBB PO 04/29/17 06:00 05/29/17 05:59 04/30/17 06:05 50 MCG Metoclopramide HCl (Reglan Tab) 5 mg TIDM PO 04/28/17 18:00 05/28/17 17:59 04/30/17 11:32 5 MG Metoprolol Tartrate (Lopressor Tab) 100 mg BID PO 04/28/17 21:00 05/28/17 20:59 04/30/17 07:52 100 MG Multivitamins (Multivitamin Tab) 1 tab QAM PO 04/29/17 09:00 05/29/17 08:59 04/30/17 07:52 1 TAB Olanzapine (Zyprexa Tab) 2.5 mg HS PO 04/28/17 21:00 05/28/17 20:59 04/29/17 20:49 2.5 MG Pantoprazole Sodium (Protonix Tab) 40 mg DAILY PO 04/29/17 09:00 05/29/17 08:59 04/30/17 07:54 40 MG Trazodone HCl (Desyrel Tab) 150 mg HS PO 04/28/17 21:00 05/28/17 20:59 04/29/17 20:48 150 MG Venlafaxine HCl (effeXOR EXTENDED REL CAP) 225 mg QAM PO 04/29/17 09:00 05/29/17 08:59 04/30/17 07:56 225 MG Warfarin Sodium (Coumadin Tab) 5 mg SuTh@1600 PO 05/01/17 16:00 05/31/17 15:59 Warfarin Sodium (Coumadin Tab) 7.5 mg MoTuWeFrSa@1600 PO 04/29/17 16:00 05/29/17 15:59 04/30/17 16:03 7.5 MG Calcitriol (Rocaltrol Cap) 0.25 mcg MoWeFr@0900 PO 04/30/17 09:00 05/30/17 08:59 04/30/17 07:52 0.25 MCG Nystatin (Mycostatin Susp) 5 ml QID PO 04/28/17 17:00 05/08/17 16:59 04/30/17 11:49 5 ML Ipratropium [place] (Atrovent 0.02% 0.5MG/2.5ML Neb) 0.5 mg Q6R INH 04/28/17 21:00 05/28/17 20:59 04/30/17 14:21 0.5 MG Levalbuterol (Xopenex 1.25MG/ 0.5ML Neb) 1.25 mg Q6R INH 04/28/17 21:00 05/28/17 20:59 04/30/17 14:21 1.25 MG Miscellaneous (Fentanyl Patch Remove & Waste) 1 ea Q3D@1059 N/A 04/30/17 10:59 05/30/17 10:58 04/30/17 10:30 1 EA Miscellaneous Information (Check Fentanyl Patch Placement) 1 ea QS N/A 04/29/17 00:00 05/29/17 00:00 04/30/17 15:46 1 EA Prednisone (PredniSONE TAB) 40 mg DAILY PO 04/29/17 09:00 05/04/17 08:59 04/30/17 07:55 40 MG Oxycodone HCl (Roxicodone Immediate Rel Tab) 10 mg Q6H PRN PO 04/29/17 10:30 05/13/17 10:29 04/30/17 09:29 10 MG Insulin Glargine (Lantus Solostar Pen) 38 units QAM SC 04/30/17 09:00 05/30/17 08:59 04/30/17 08:06 38 UNITS Insulin Glargine (Lantus Solostar Pen) 24 units PM SC 04/30/17 21:00 05/30/17 20:59 Heparin Sodium/ Dextrose 500 ml @ 25 mls/hr Q20H PRN IV 04/30/17 09:30 05/30/17 09:29 04/30/17 09:59 25 MLS/HR Polyethylene (Miralax Powder Packet) 17 gm QAM PO 05/01/17 09:00 05/31/17 08:59 Nicotine (Nicoderm Cq 21MG Patch) 1 patch QAM EXT 05/01/17 09:00 05/31/17 08:59 Miscellaneous (Remove Nicoderm Patch) 1 ea HS N/A 04/30/17 21:00 05/30/17 20:59 Physical Exam Vital Signs Past 12 Hours Date Time Temp Pulse Resp B/P (MAP) Pulse Ox O2 Delivery O2 Flow Rate FiO2 04/30/17 16:00 99 Room Air 3.0 04/30/17 15:03 36.7 68 21 108/72 (84) 99 Room Air 04/30/17 14:21 68 18 97 Nasal Cannula 3.0 04/30/17 12:00 Nasal Cannula 3.0 04/30/17 11:28 36.7 72 20 107/60 (76) 97 Nasal Cannula 2.0 04/30/17 08:00 Nasal Cannula 3.0 04/30/17 07:17 84 18 95 BiPAP/CPAP 3.0 04/30/17 07:07 36.4 72 20 111/63 (79) 99 Room Air Constitutional: General Apperance: heathly-appearing Level of Distress: NAD Psychiatric: Mental Status: active & alert Head: normocephalic Eyes: EOM: EOMI ENMT: normal ENT inspection, hearing grossly normal Neck: supple, no masses Lungs: Respiratory effort: no dyspnea, good air movement Auscultation: CTA except as noted, no wheezing, no rales/crackles Cardiovascular: Heart Auscultation: RRR, no murmurs, no rubs, no gallops Peripheral Pulses: Bruits: none appreciated Abdomen: Bowel Sounds: normal Inspection & Palpation: soft, no tenderness, guarding & rebound, no masses Musculoskeletal: normal strength (5/5 throughout) Extremities: no cyanosis, no edema, no varicosities Neurologic: Gait & Station: pertinent finding (no focal defitics ) Cranial Nerves: grossly intact Sensation: grossly intact Data Laboratory Results: Last 24 Hours Test 04/29/17 20:20 04/30/17 01:59 04/30/17 03:30 04/30/17 06:39 Bedside Glucose 249 mg/dl 98 mg/dl 135 mg/dl 129 mg/dl Test 04/30/17 07:07 04/30/17 10:42 04/30/17 15:52 04/30/17 16:28 White Blood Count 11.80 K/uL Red Blood Count 3.51 M/uL Hemoglobin 10.8 g/dL Hematocrit 33.5 % Mean Corpuscular Volume 95.4 fL Mean Corpuscular Hemoglobin 30.8 pg Mean Corpuscular Hemoglobin Concent 32.2 g/dl RDW Standard Deviation 49.7 fL RDW Coefficient of Variation 14.4 % Platelet Count 273 K/uL Mean Platelet Volume 8.6 fL Prothrombin Time 19.0 SECONDS Prothromb Time International Ratio 1.7 Activated Partial Thromboplast Time 28.5 SECONDS 36.1 SECONDS Partial Thromboplastin Ratio 1.1 1.4 Sodium Level 139 mmol/L Potassium Level 4.3 mmol/L Chloride Level 101 mmol/L Carbon Dioxide Level 35 mmol/L Anion Gap 3.0 mmol/L Blood Urea Nitrogen 24 mg/dl Creatinine 1.00 mg/dl Est Creatinine Clear Calc Drug Dose 66.5 ml/min Estimated GFR () 70.9 Estimated GFR (Non- 61.2 BUN/Creatinine Ratio 24.2 Random Glucose 127 mg/dl Calcium Level 8.5 mg/dl Bedside Glucose 83 mg/dl 161 mg/dl Imaging: EKG: This morning the electrocardiogram shows atrial flutter with 4-1 AV conduction Telemetry reviewed: Atrial flutter, often 2-1 with very rapid heart rates, on oral meds and intravenous diltiazem rate is currently 4-1 and recently well- controlled. Assessment & Plan #1. Atrial flutter with rapid heart rate: She has very difficult to control atrial flutter, attempts had been made for medical rate control. Antiarrhythmic therapy is potentially risky with the need for psychiatric medications. I agree that flutter ablation is a reasonable option. I discussed this with her and her family. We will try to do this on 05/01/2017, schedule permitting and if there is no atrial clot. #2. Anticoagulation status: She is maintained on warfarin, but her INR has been low. I agree with a HUSSEIN to look for atrial clot, if not present then we should be able to safely proceed with flutter ablation. I would maintain her on heparin for now. Thank you for allowing me to participate in her care.
[2017-04-30] MEDS ORDERED: HEPARIN IV BOLUS 6,000 UNIT in SYRINGE 0 ML IV ONE (18:45)
[2017-04-30] MEDS ORDERED: INSULIN GLARGINE SOLOSTAR 100 UNITS/ML 3 ML PEN SC SCH (21:00)
[2017-04-30] MEDS: ATORVASTATIN 40 MG TAB PO SCH (21:13)
[2017-04-30] MEDS: AMITRIPTYLINE HCL 50 MG TAB PO SCH (21:13)
[2017-04-30] MEDS: TRAZODONE HCL 50 MG TAB PO SCH (21:13)
[2017-04-30] MEDS: OLANZAPINE 2.5 MG TAB PO SCH (21:15)
[2017-05-01] VITALS (26 sets, daily range): BP systolic 97–155; BP diastolic 48–80; PULSE 64–134; TEMP 36.4–36.7; O2SAT 92–98; Ht 162.6 cm; Wt 97.7 kg
[2017-05-01] MEDS: OXYCODONE HCL IR 5 MG TAB (IMMEDIATE RELEASE) PO PRN ×2 (00:15→13:52)
[2017-05-01 02:02] LABS: PARTIAL THROMBOPLASTIN RATIO 6.7
[2017-05-01] MEDS: IPRATROPIUM BROMIDE NEB SOLN 0.02% 2.5 ML VIAL INH SCH ×4 (02:28→18:31)
[2017-05-01] MEDS: LEVALBUTEROL 1.25MG/0.5ML NEB INH SCH ×4 (02:29→18:31)
[2017-05-01 04:12] LABS: HEMATOCRIT 32.4 % (37-47); MEAN CELL VOLUME 95.3 fL (80-100); MEAN CORPUSCULAR HEMOGLOBIN 31.2 pg (25-34); MEAN CORPUSCULAR HGB CONC 32.7 g/dl (32-36); MEAN PLATELET VOLUME 8.8 fL (7.4-10.4); PLATELET COUNT 270 K/uL (130-400); WHITE BLOOD COUNT 15.82 K/uL (4.8-10.8)
[2017-05-01 04:30] LABS: BUN/CREATININE RATIO 23.3 (10-20); CALCIUM 8.6 mg/dl (8.5-10.1); POTASSIUM 4.3 mmol/L (3.5-5.1)
[2017-05-01 04:32] LABS: INR 3.1 (0.9-1.1); PARTIAL THROMBOPLASTIN RATIO 1.9; PROTHROMBIN TIME (PATIENT) 34.5 SECONDS (9.0-12.0)
[2017-05-01] MEDS: GLUCOSE 10 TABS/TUBE PO PRN (04:38)
[2017-05-01] MEDS: HEPARIN 25,000 UNIT/500ML D5W 500 ML IV PRN (05:11)
[2017-05-01] MEDS: DEXTROSE 50% 50 ML SYR IV PRN ×3 (05:13→12:30)
[2017-05-01] MEDS: LEVOTHYROXINE 50 MCG TAB PO SCH (05:54)
[2017-05-01] MEDS: CHECK FENTANYL PATCH PLACEMENT SCH ×3 (08:20→23:39)
[2017-05-01] MEDS: INSULIN ASPART 100 UNITS/ML 3 ML PEN SC SCH ×4 (08:48→20:37)
[2017-05-01] MEDS: INSULIN GLARGINE SOLOSTAR 100 UNITS/ML 3 ML PEN SC SCH (08:49)
[2017-05-01] MEDS: DILTIAZEM HCL INJ 125 MG in DEXTROSE 5% 100ML IV PRN ×2 (09:36→18:46)
[2017-05-01] MEDS ORDERED: CANNULA ONE ×2 (10:13)
[2017-05-01] MEDS ORDERED: MIDAZOLAM HCL 1 MG/ML 2ML VIAL ONE (10:13)
[2017-05-01] MEDS ORDERED: FENTANYL CITRATE INJ 50 MCG/1 ML 2 ML VIAL ONE (10:13)
[2017-05-01] MEDS ORDERED: LIDOCAINE HCL 2% VISC SOLN 20 ML UDC ONE (10:14)
--- NOTE | 2017-05-01 10:20 | Pharmacy Progress Note ---
Glycemic Control Progress Note Date of Service May 01, 2017. Scope Glycemic Pharmacist consulted for glycemic control to write orders per [facility] inpatient glycemic control protocol. Objective Accuchecks BSG (last 24hrs): Test 04/30/17 10:42 04/30/17 16:28 04/30/17 20:06 04/30/17 23:14 Bedside Glucose 83 mg/dl (70-90) 161 mg/dl (70-90) 227 mg/dl (70-90) 246 mg/dl (70-90) Test 05/01/17 02:20 05/01/17 03:49 05/01/17 05:09 05/01/17 05:35 Bedside Glucose 123 mg/dl (70-90) 57 mg/dl (70-90) 93 mg/dl (70-90) Random Glucose 69 mg/dl (70-99) Test 05/01/17 06:48 05/01/17 07:04 Bedside Glucose 66 mg/dl (70-90) 171 mg/dl (70-90) HbA1c: Test 04/29/17 07:05 Hemoglobin A1c 9.8 % (4.5-5.6) H Recent Pertinent Medications The patient is currently receiving: * Basal insulin: 04/28 Lantus 36 units in AM, 20 units in PM 04/29 Lantus 38 units in AM, 24 units in PM 04/30 Lantus 38 units in AM, 24 units in PM * Correctional Insulin: Novolog Correction per scale ACHS Goal Range: Low 110 mg/dL - High 150 mg/dL Correction Factor: 15 mg/dL/unit * Prandial insulin: Per carb ratio of 1 unit per 4 grams CHO consumed Outpatient Anti-Diabetic Meds Outpatient Anti-diabetic Regimen: * Lantus 36 units SQ BID {recently decreased from 40 units SQ BID by PCP secondary to frequent lows over the past week} * -P-d-c-o-L-o-g- -5- -u-n-i-t-s- -w-i-t-h- -l-a-r-g-e- -m-e-a-l-s- -w-h-e-n- -B-S-G- ->- -1-5-0- -m-g--/--d-l- {PCP told her to stop taking secondary to frequent lows} Assessment & Plan ASSESSMENT: * See progress note from 04/30 for more background info, in short: * Pt receiving SQ basal bolus insulin regimen for hyperglycemia secondary to baseline DM (outpatient regimen on hold),stress/infection, steroids (on prednisone 40 mg daily) * Patient is currently receiving an average of 100 units of insulin per day - compared to ~150 units/day on previous admissions on prednisone 40 mg * BSGs ranging 57-246 over the past 24hrs * Risk factors for insulin resistance are constant over the past 24hrs * Steroid dosing unchanged * Changes to insulin regimen d/t : * AM Fasting BSG = 57; fasting has continued to decrease and now with hypoglycemia so will decrease PM dose of Lantus by ~30% * Post-prandial BSGs were somewhat improved yesterday so will continue with tight CR while on steroids PLAN FOR INPATIENT GLYCEMIC CONTROL: * Change Lantus to 38 units in the AM, 17 units in the PM * Continue correction factor of 15 mg/dl/unit * Continue carb ratio of 1 unit per 4 grams CHO consumed * Continue goal range of Low 110 mg/dL - High 150 mg/dL RECOMMENDATIONS FOR DISCHARGE: * Outpatient regimen will need adjusted if patient will not be discharged on steroids since patient was having lows EDUCATIONAL SPEECH LANGUAGE CLINICIAN. Will plan to f/u closer to discharge depending on plan for outpatient steroids. Thank you.
--- NOTE | 2017-05-01 11:14 | Procedure Note ---
Pre-Mod Sedation Assessment General Date of Moderate Sedation: May 01, 2017. Vital Signs: Vital Signs Past 12 Hours Date Time Temp Pulse Resp B/P (MAP) Pulse Ox O2 Delivery O2 Flow Rate FiO2 05/01/17 10:16 69 134/49 98 Nasal Cannula 4 05/01/17 08:00 Nasal Cannula 4.0 05/01/17 07:30 70 18 98 Nasal Cannula 3.0 05/01/17 06:49 36.6 68 20 100/64 (76) 98 Nasal Cannula 6.0 05/01/17 04:00 95 Nasal Cannula 3.0 05/01/17 03:58 36.7 64 22 128/66 (86) 95 CPAP 05/01/17 02:29 76 20 97 BiPAP/CPAP 3.0 05/01/17 00:01 93 Nasal Cannula 3.0 05/01/17 00:00 36.6 87 20 126/75 (92) 93 Nasal Cannula 3.0 Review Cardiovascular: regular rate, rhythm Abdomen: non tender, soft Lungs: lungs clear Airway Class: II Pre-Sedation Airway Assessment Oral Cavity: Dentures Able to Visualize Vocal Cords: No Short Thick Neck: No Hx of Sleep Apnea: Yes Smoking Status: Heavy Tobacco Smoker Mallampati Classification: Class II ASA Classification: Class IV Procedure Planning Contraindications-for Mod Sed: None Yes Notes The planned sedation has been discussed with the patient and consent obtained. I have identified the patient, determined the appropriateness of sedation and have assessed the patient immediately prior to the procedure. All medicine(s) and interventions are by my order.
--- NOTE | 2017-05-01 11:15 | Procedure Note ---
Post-Mod Sedation Assessment General Date of Moderate Sedation May 01, 2017. Vital Signs: Vital Signs Past 12 Hours Date Time Temp Pulse Resp B/P (MAP) Pulse Ox O2 Delivery O2 Flow Rate FiO2 05/01/17 10:16 69 134/49 98 Nasal Cannula 4 05/01/17 08:00 Nasal Cannula 4.0 05/01/17 07:30 70 18 98 Nasal Cannula 3.0 05/01/17 06:49 36.6 68 20 100/64 (76) 98 Nasal Cannula 6.0 05/01/17 04:00 95 Nasal Cannula 3.0 05/01/17 03:58 36.7 64 22 128/66 (86) 95 CPAP 05/01/17 02:29 76 20 97 BiPAP/CPAP 3.0 05/01/17 00:01 93 Nasal Cannula 3.0 05/01/17 00:00 36.6 87 20 126/75 (92) 93 Nasal Cannula 3.0 Review - Discharge Criteria Vital Signs Stable: Yes Alert/Oriented/Conversant: Yes Returned to Baseline Mental St: Yes Nausea Absent/Minimal: Yes Pain/Discomfort/Absent/Minimal: Yes Normal/Baseline Respirations: Yes Active Bleeding?: No Pt Received D/C Instructions: No Prescriptions Given: None Specific Proced. D/C Criteria Distal Pulses Present (Cardiac: N/A Groin site assessed-Card Cath: N/A Voided Prior To Discharge: N/A Discharged Patients Adult Escort/Transportation: N/A
--- NOTE | 2017-05-01 11:22 | Cardiology Procedure Brief Nt ---
Preliminary Cardiology Note Procedure Date May 01, 2017. Pre-Procedure Diagnosis atrial flutter Post-Procedure Diagnosis no left atrial appendage thrombus Procedure(s) Performed HUSSEIN, moderate sedation, start time 10:42 am, end time 11:08 am, Sedation nurse: Alpa Horne RN Welder [employer]il[employer] Arianne Underwood DO Photo Editor(s) MICKEY Hopkins Estimated Blood Loss none Preliminary Findings No left atrial appendage thrombus. 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 Stable MV repair, with no MS, and mild MR. Recommendations Proceed with left atrial flutter ablation as planned tomorrow. Coumadin 5 mg due today, will discuss with EP if Coumadin should be held today, pending flutter ablation tomorrow, as goal INR ~2 for procedure. Specimens none reported. Anesthesia Versed 1 mg IV , Fentanyl 12.5 mcg IV, Sedation nurse Alpa Horne RN Complication(s) None Disposition PCU
--- NOTE | 2017-05-01 11:27 | Cardiology Follow-Up ---
Subjective General Date of Service: May 01, 2017. Chief Complaint: follow up atrial flutter Pt evaluation today including: conversation w/ patient, physical exam History of Present Illness The patient is a 61 year old female seen in follow up. Pt denies chest pain. Respiratory status is stable. Telemetry reveals rate controlled atrial flutter with RBBB, on IV diltiazem. Had hypoglycemia this am, however BG improved to 120 mg upon repeat finger stick in her room with me at the bedside prior to HUSSEIN. Allergies Coded Allergies: BEE STING (Verified Allergy, Severe, SWELLING, 04/20/17) Lisinopril (Verified Allergy, Intermediate, FACE SWELLING, 04/20/17) Potato (Verified Allergy, Intermediate, BBQ chips - facial swelling, ) Metronidazole (Verified Allergy, Mild, FACE SWELLING, 04/20/17) [place] (Verified Allergy, Mild, HIVES, 04/20/17) Alprazolam (Verified Allergy, Unknown, RED FACE, FACE SWELLING, 04/20/17) Lactose (Verified Adverse Reaction, Intermediate, VOMTING DIARRHEA ABDOMINAL PAIN, 04/20/17) Prednisone (Verified Adverse Reaction, Mild, unknown, 04/20/17) Colesevelam (Verified Adverse Reaction, Unknown, unknown, 04/20/17) [place] (Verified Adverse Reaction, Unknown, jitters, 04/20/17) Social History Smoking Status: Heavy Tobacco Smoker Hx Tobacco Use In Past Year?: Yes Hx Alcohol Use - Type And Amou: No Hx Substance Use - Type And Am: Yes (SEE CURRENT E-MAR) Problem List Medical Problems: (1) Acute gastroenteritis Status: Acute (2) Altered mental status Status: Acute (3) Atrial flutter with rapid ventricular response Status: Acute (4) Back pain Status: Acute (5) Bradycardia Status: Acute (6) Bronchitis Status: Acute (7) Bronchitis Status: Acute (8) CAP (community acquired pneumonia) Status: Acute (9) Cellulitis Status: Acute (10) Cervical radiculopathy Status: Acute (11) Chest pain Status: Acute (12) Chest pain of unknown etiology Status: Acute (13) Chest wall pain Status: Acute (14) Chest wall pain Status: Acute (15) CHF exacerbation Status: Acute (16) Chronic right shoulder pain Status: Acute (17) Congestive heart failure Status: Acute (18) Congestive heart failure Status: Acute (19) COPD exacerbation Status: Acute (20) COPD exacerbation Status: Acute (21) COPD exacerbation Status: Acute (22) Cough Status: Acute (23) Dehydration Status: Acute (24) Depressed Status: Acute (25) Diarrhea Status: Acute (26) Diarrhea Status: Acute (27) Diarrhea Status: Acute (28) Diffuse abdominal pain Status: Acute (29) Diffuse abdominal pain Status: Acute (30) Dysuria Status: Acute (31) Erythema of face Status: Acute (32) Fatigue Status: Acute (33) Fluid overload Status: Acute (34) Generalized weakness Status: Acute (35) Headache Status: Acute (36) History of COPD Status: Acute (37) Hyperglycemia Status: Acute (38) Hypoxia Status: Acute (39) Leukocytosis Status: Acute (40) Lower back pain Status: Acute (41) Pelvic cyst Status: Acute (42) PNA (pneumonia) Status: Acute (43) Rash Status: Acute (44) Request for narcotic pain medication Status: Acute (45) Respiratory failure Status: Acute (46) Right fibular fracture Status: Acute (47) Right leg pain Status: Acute (48) Shortness of breath Status: Acute (49) Shortness of breath Status: Acute (50) Tobacco use Status: Acute (51) Urinary tract infection Status: Acute (52) UTI (urinary tract infection) Status: Acute (53) Weakness Status: Acute (54) Wheezing Status: Acute Physical Exam Vital Signs Last Vital Signs Documentation Date Time Temp Pulse Resp B/P (MAP) Pulse Ox O2 Delivery O2 Flow Rate FiO2 05/01/17 10:16 69 134/49 98 Nasal Cannula 4 05/01/17 07:30 18 05/01/17 06:49 36.6 Physical Exam Constitutional: General Apperance: heathly-appearing Level of Distress: NAD Psychiatric: Mental Status: active & alert Head: normocephalic Eyes: EOM: EOMI ENMT: normal ENT inspection, hearing grossly normal Neck: supple, no masses Lungs: Respiratory effort: no dyspnea, good air movement Auscultation: CTA except as noted, no wheezing, no rales/crackles Cardiovascular: Heart Auscultation: RRR, no murmurs, no rubs, no gallops Peripheral Pulses: Bruits: none appreciated Abdomen: Bowel Sounds: normal Inspection & Palpation: soft, no tenderness, guarding & rebound, no masses Musculoskeletal: normal strength (5/5 throughout) Extremities: no cyanosis, no edema, no varicosities Neurologic: Gait & Station: pertinent finding (no focal defitics ) Cranial Nerves: grossly intact Sensation: grossly intact Assessment and Plan Assessment and Plan Impression: 61 year old female 1. Recurrent atrial flutter, RVR 2. Underlying severe COPD 3. Normal LVEF , echo at [facility] 04/07/17, despite history of cor pulmonale , normal RV size and RVEF noted at time of echo 4. Remove mitral valve repair , due to valve strands, cardioembolic stroke Plan: INR 3.1 today, heparin gtt stopped. HUSSEIN performed no LA, CARLENE thrombus. Normal RV size and function. Proceed with A flutter ablation today or tomorrow depending on scheduling around other cases already scheduled. I will discuss coumadin dosing with EP as pt is due for coumadin 5 mg today, and has INR of 3.1 and would prefer INR 2-3 for procedure to prophylax stroke , but minimize bleeding risk. Continue cardizem gtt for now. Arianne Underwood, Laboratory Results Last 24 Hours Test 04/30/17 15:52 04/30/17 16:28 04/30/17 20:06 04/30/17 23:14 Activated Partial Thromboplast Time 36.1 SECONDS Partial Thromboplastin Ratio 1.4 Bedside Glucose 161 mg/dl 227 mg/dl 246 mg/dl Test 05/01/17 00:50 05/01/17 02:20 05/01/17 03:49 05/01/17 05:09 Activated Partial Thromboplast Time 177.4 SECONDS 50.4 SECONDS Partial Thromboplastin Ratio 6.7 1.9 Bedside Glucose 123 mg/dl 57 mg/dl White Blood Count 15.82 K/uL Red Blood Count 3.40 M/uL Hemoglobin 10.6 g/dL Hematocrit 32.4 % Mean Corpuscular Volume 95.3 fL Mean Corpuscular Hemoglobin 31.2 pg Mean Corpuscular Hemoglobin Concent 32.7 g/dl RDW Standard Deviation 48.9 fL RDW Coefficient of Variation 14.2 % Platelet Count 270 K/uL Mean Platelet Volume 8.8 fL Prothrombin Time 34.5 SECONDS Prothromb Time International Ratio 3.1 Sodium Level 135 mmol/L Potassium Level 4.3 mmol/L Chloride Level 97 mmol/L Carbon Dioxide Level 34 mmol/L Anion Gap 4.0 mmol/L Blood Urea Nitrogen 23 mg/dl Creatinine 1.00 mg/dl Est Creatinine Clear Calc Drug Dose 66.5 ml/min Estimated GFR () 70.9 Estimated GFR (Non- 61.2 BUN/Creatinine Ratio 23.3 Random Glucose 69 mg/dl Calcium Level 8.6 mg/dl Test 05/01/17 05:35 05/01/17 06:48 05/01/17 07:04 Bedside Glucose 93 mg/dl 66 mg/dl 171 mg/dl
--- NOTE | 2017-05-01 12:26 | TEE ---
*NOTICE TO RECEIVING CONSTITUTION PARTY AGENCY This information is strictly Confidential and protected under [place] law. [place] law prohibits you from making any further disclosure of this information unless further disclosure is expressly permitted by the written consent of the person to whom it pertains or is authorized by law. A general authorization for the release of medical or other information is not sufficient for this purpose. Hospital accepts no responsibility if the information is made available to any other person, INCLUDING THE PATIENT. Interpretation Summary * Name: ALVARO ROBERTS I Study Date: 05/01/2017 10:06 AM BP: 133/56 mmHg * Patient Location: C.2T\S\S244\S\1 HR: 84 * : 1955 (M/d/yyyy) Gender: Female Height: 64 in * Age: 61 yrs Ethnicity: [place] Weight: 206 lb * Ordering Physician: Chico Underwood DO, [facility] * Performed By: Ana Krishna * * Reason For Study: A-FLUTTER, R/O CARLENE THROMBUS * BSA: 2.0 m2 * -- Conclusions -- * No left atrial mass or thrombus visualized. * No thrombus is detected in the left atrial appendage. * There is a 0.4 cm long , mobile echodensity on the aortic aspect of the mitral valve consistent with a Lambl's excrescence. * Aortic valve sclerosis mild, without significant aortic valvular stenosis. * An annuloplasty ring is noted in the mitral position with evidence of prior mitral valve repair. * There is no mitral valve stenosis. * There is mild mitral regurgitation. Procedure Details * Start time 10:42 am, stop time 11:08 am, sedation nurse , Alpa Horne RN * The transesophageal portion of this study was personally supervised by the undersigned interpreting physician. * HUSSEIN Probe #2 utilized for procedure. * HUSSEIN Probe #3 utilized for procedure. Probe was inserted at 10:45am and taken out at 11:08am. * The study was performed in Cardiopulmonary Department. * Time out was conducted by the physician, nurse, and technical services specialist with positive identification of patient and procedure. * Informed consent for Transesophageal Echocardiogram was obtained prior to the procedure. * An intravenous line was placed. A topical anesthetic agent was used for oropharangeal anesthesia. A bite block was inserted. * The patient's vital signs, including blood pressure, heart rate, pulse oximetry and cardiac rhythm were monitored throughout the procedure . * Fentanyl 12.5 mcg was administered for procedural sedation. * Midazolam 1 mg administered for sedation. * The posterior oropharynx was anesthetized using a topical anesthetic spray. A bite guard was inserted. * A multifrequency, multiplane transesopheageal echocardiographic endoscope was inserted and manipulated in the standard fashion to achieve multiplane views. * The transesophageal probe was passed without difficulty. * The usual views were obtained; basal, mid-esophageal, transgastric and aortic views. * The patient tolerated the procedure well without evidence of orophangeal or esophageal trauma. * A 2D transesophageal echocardiogram with spectral and color flow Doppler was performed. * Contrast injection with agitated saline was performed. * A 2D transesophageal echocardiogram was performed. * A 2D transesophageal echocardiogram with color flow Doppler was performed. * A 2D transesophageal echocardiogram with Doppler and color flow Doppler was performed. Left Ventricle * The left ventricle is normal in size. * There is normal left ventricular wall thickness. * Left ventricular systolic function is normal. * Ejection Fraction = 60-65%. * The left ventricular wall motion is normal. Right Ventricle * The right ventricle is normal in size and function. Atria * The left atrium is moderately dilated. * No left atrial mass or thrombus visualized. * No thrombus is detected in the left atrial appendage. * Right atrial size is normal. * The interatrial septum is intact with no evidence for an atrial septal defect. * Injection of contrast documented no interatrial shunt. Mitral Valve * There is no vegetation seen on the mitral valve. * There is no mitral valve stenosis. * There is mild mitral regurgitation. * An annuloplasty ring is noted in the mitral position. Tricuspid Valve * The tricuspid valve is normal. * There is no tricuspid stenosis. * There is mild tricuspid regurgitation. * Doppler findings do not suggest pulmonary hypertension. Aortic Valve * The aortic valve is trileaflet. * Aortic valve sclerosis mild, without significant aortic valvular stenosis. * There is a 0.4 cm long , mobile echodensity on the aortic aspect of the mitral valve consistent with a Lambl's excrescence. * No hemodynamically significant valvular aortic stenosis. * No aortic regurgitation is present. Pulmonic Valve * The pulmonic valve is not well seen, but is grossly normal. Great Vessels * The aortic root is normal size. * Mild non mobile atheromatous disease is noted in the descending thoracic aorta. Pericardium * There is no pericardial effusion.
--- NOTE | 2017-05-01 12:52 | Cardiology Progress Note ---
Cardiology Progress Note Date of Service May 01, 2017. Cardiology Progress Note Patient reassessed post HUSSEIN. Doing well with exception of low blood glucose again, which is being addressed and pt feels better. Case discussed with Dr Masterson of EP. No ablation today. Resume diet for today, NPO after MN for ablation 05/02/17. Hold coumadin tonight given INR of 3.1 (trending up) and repeat tomorrow. Have a narrow goal for INR for this patient. Need to keep INR above 2 to minimize stroke risk , however, would prefer < 3 to prevent bleeding complication with flutter ablation.
[2017-05-01] MEDS: NYSTATIN SUSP 500,000 U/5 ML UDC PO SCH ×4 (13:00→20:30)
[2017-05-01] MEDS: PANTOprazole SOD 40 MG TAB PO SCH (13:15)
[2017-05-01] MEDS: CETIRIZINE HCL 10 MG TAB PO SCH (13:15)
[2017-05-01] MEDS: MULTIVITAMIN TAB PO SCH (13:16)
[2017-05-01] MEDS: VENLAFAXINE HCL XR 75 MG CAPXR PO SCH (13:16)
[2017-05-01] MEDS: METOCLOPRAMIDE HCL 10 MG TAB PO SCH ×3 (13:16→18:04)
[2017-05-01] MEDS: GABAPENTIN 800 MG TAB PO SCH ×3 (13:16→20:31)
[2017-05-01] MEDS: NICOTINE 21 MG/24 HR TDSY EXT SCH (13:16)
[2017-05-01] MEDS: METOPROLOL TARTRATE 100 MG TAB PO SCH ×2 (13:16→20:39)
[2017-05-01] MEDS: FUROSEMIDE 20 MG TAB PO SCH (13:16)
[2017-05-01] MEDS: POLYETHYLENE (MIRALAX) 17 GM PACK PO SCH (13:17)
--- NOTE | 2017-05-01 15:22 | Anesthesiology Progress Note ---
Pre-OP Anesthesia Assessment Date of Note May 01, 2017. Review patient information reviewed, chart reviewed, labs reviewed, acceptable for surgery Notes 61 yo female diagnosed with atrial flutter, scheduled for HUSSEIN/cardioversion. PMH includes obesity, CHF, COPD, GERD, hypothyroidism. She has had anesthesia in the past without complications. IV sedation/MAC described. She expressed understanding and signed informed consent.
[2017-05-01] MEDS ORDERED: WARFARIN SOD 5 MG TAB PO SCH (16:00)
[2017-05-01] MEDS ORDERED: NURSING VERBAL MED ORDER ONE (17:15)
--- NOTE | 2017-05-01 17:16 | Cardiology Follow-Up ---
Subjective Date of Service: May 01, 2017. Pt evaluation today including: conversation w/ patient, physical exam, lab review, review of studies, conversation w/ senior talent management consultant, review of inpatient medication list History of Present Illness This is a very pleasant 61-year-old woman with severe obstructive lung disease, diabetes mellitus, a mitral valve repair in the past following cardioembolic strokes who also has a history of atrial flutter which I believe was identified around 2012. At that time she required cardioversion, she then had another episode of atrial flutter treated with diltiazem and spontaneous conversion back to sinus rhythm. More recently she has had recurrence of her arrhythmia, around one week ago she was seen for cardiology follow-up and was noted to be in atrial flutter with a heart rate of 150 bpm. She has been maintained on warfarin although the INR has been somewhat on the low side. During this hospitalization on intravenous diltiazem, in addition to oral metoprolol tartrate 100 mg twice a day, her heart rate has tended to be fast, often with 2- 1 atrial flutter. Echocardiography 04/07/2017 showed normal left ventricular size and function with moderate left ventricular hypertrophy. Left atrium was moderately dilated as well. Cardiac catheterization in 2004 showed no obstructive disease, this admission cardiac enzymes have been negative despite the high heart rates. Transesophageal echocardiography today was negative for thrombus. With difficult to control atrial flutter we are planning flutter ablation. Today she feels well and has no complaints following her HUSSEIN. Social History Smoking Status: Heavy Tobacco Smoker History of Alcohol Use: No Review of Systems Respiratory: No cough, No wheezing, No shortness of breath, No dyspnea on exertion Cardiac: No chest pain, No orthopnea, No PND, No edema, No palpitations Medications Cardiovascular: Item Value Date Time Atorvastatin 40 mg 04/28/17 2100 Calcium HS/PO 04/30/173 (Lipitor Tab) Metoprolol 100 mg 04/28/17 2100 Tartrate BID/PO 05/01/17 1316 (Lopressor Tab) Objective Vital Signs Past 12 Hours Date Time Temp Pulse Resp B/P (MAP) Pulse Ox O2 Delivery O2 Flow Rate FiO2 05/01/17 15:33 36.4 67 22 111/62 (78) 98 Nasal Cannula 3.0 05/01/17 14:44 70 20 110/59 (76) 98 05/01/17 14:16 73 16 98/79 (85) 95 05/01/17 13:52 86 16 101/64 (76) 95 05/01/17 13:24 86 16 103/63 (76) 96 05/01/17 13:00 134 18 155/72 (99) 96 Nasal Cannula 4.0 05/01/17 12:34 134 18 133/69 (90) 98 Nasal Cannula 4.0 05/01/17 12:01 122 12 161/73 (102) 99 Nasal Cannula 4 05/01/17 12:00 Nasal Cannula 4.0 05/01/17 11:50 119 12 166/73 (104) 95 Nasal Cannula 4 05/01/17 11:40 92 14 122/63 (82) 98 Nasal Cannula 4 05/01/17 11:30 84 13 144/55 (84) 98 Nasal Cannula 4 05/01/17 11:20 68 14 133/56 (81) 97 Nasal Cannula 4 05/01/17 11:10 72 12 124/43 (70) 96 Nasal Cannula 4 05/01/17 11:08 Nasal Cannula 4 05/01/17 11:05 68 12 118/50 94 Nasal Cannula 4 05/01/17 11:00 68 9 125/48 94 Nasal Cannula 4 05/01/17 10:55 68 10 112/49 94 Nasal Cannula 4 05/01/17 10:50 68 10 118/48 96 Nasal Cannula 4 05/01/17 10:45 73 12 141/61 96 Nasal Cannula 4 05/01/17 10:42 90 13 134/49 97 Nasal Cannula 4 05/01/17 10:16 69 134/49 98 Nasal Cannula 4 05/01/17 08:00 Nasal Cannula 4.0 05/01/17 07:30 70 18 98 Nasal Cannula 3.0 05/01/17 06:49 36.6 68 20 100/64 (76) 98 Nasal Cannula 6.0 Last Recorded Weight-Kilograms: 163 Intake & Output 8-Hour Column 05/01/17 05/02/17 05/02/17 16:00 00:00 08:00 Intake Total 833 ml Output Total 1350 ml Balance -517 ml 24-Hour Column 05/02/17 08:00 Intake Total 833 ml Output Total 1350 ml Balance -517 ml Physical Exam Constitutional: General Apperance: heathly-appearing Level of Distress: NAD Lungs: Respiratory effort: no dyspnea, good air movement Auscultation: CTA except as noted, no wheezing, no rales/crackles Cardiovascular: Heart Auscultation: RRR, no murmurs, no rubs, no gallops Peripheral Pulses: Bruits: none appreciated Extremities: no cyanosis, no edema, no varicosities Data Laboratory Results: Last 24 Hours Test 04/30/17 20:06 04/30/17 23:14 05/01/17 00:50 05/01/17 02:20 Bedside Glucose 227 mg/dl 246 mg/dl 123 mg/dl Activated Partial Thromboplast Time 177.4 SECONDS Partial Thromboplastin Ratio 6.7 Test 05/01/17 03:49 05/01/17 05:09 05/01/17 05:35 05/01/17 06:48 White Blood Count 15.82 K/uL Red Blood Count 3.40 M/uL Hemoglobin 10.6 g/dL Hematocrit 32.4 % Mean Corpuscular Volume 95.3 fL Mean Corpuscular Hemoglobin 31.2 pg Mean Corpuscular Hemoglobin Concent 32.7 g/dl RDW Standard Deviation 48.9 fL RDW Coefficient of Variation 14.2 % Platelet Count 270 K/uL Mean Platelet Volume 8.8 fL Prothrombin Time 34.5 SECONDS Prothromb Time International Ratio 3.1 Activated Partial Thromboplast Time 50.4 SECONDS Partial Thromboplastin Ratio 1.9 Sodium Level 135 mmol/L Potassium Level 4.3 mmol/L Chloride Level 97 mmol/L Carbon Dioxide Level 34 mmol/L Anion Gap 4.0 mmol/L Blood Urea Nitrogen 23 mg/dl Creatinine 1.00 mg/dl Est Creatinine Clear Calc Drug Dose 66.5 ml/min Estimated GFR () 70.9 Estimated GFR (Non- 61.2 BUN/Creatinine Ratio 23.3 Random Glucose 69 mg/dl Calcium Level 8.6 mg/dl Bedside Glucose 57 mg/dl 93 mg/dl 66 mg/dl Test 05/01/17 07:04 05/01/17 09:07 05/01/17 09:32 05/01/17 09:44 Bedside Glucose 171 mg/dl 61 mg/dl 81 mg/dl 129 mg/dl Test 05/01/17 12:24 05/01/17 12:40 05/01/17 16:05 Bedside Glucose 37 mg/dl 117 mg/dl 173 mg/dl Imaging: HUSSEIN negative for left atrial clot Telemetry reviewed: Remains in A flutter Assessment and Plan #1. Atrial flutter with rapid heart rate: She has very difficult to control atrial flutter, attempts had been made for medical rate control. Antiarrhythmic therapy is potentially risky with the need for psychiatric medications. I agree that flutter ablation is a reasonable option. I discussed this with her and her family yesterday, today I went through the indications, procedure, risks and alternatives of the procedure with her and she understands and agrees to proceed. Consent obtained. We will try do this on 05/02/2017. #2. Anticoagulation status: She is maintained on warfarin, but her INR had been low, now back up. She is on heparin as well which was discontinued today. It is safer to do the procedure. Point of thrombosis on anticoagulation, it increases the risk of bleeding slightly but she understands that. Thank you for allowing me to participate in her care.
[2017-05-01] MEDS ORDERED: BISACODYL 10 MG SUPP PR ONE (17:45)
--- NOTE | 2017-05-01 19:59 | Progress Note ---
Medicine Progress Note Date & Time of Visit: May 01, 2017 at 19:39. Subjective Pt was seen and examined Pt was standing in the bathroom clean up with no distress Pt said that she feels OK Blood sugar dropped this morning Denies any chest pain, palpitation, dizziness Objective Last 8 Hrs Date Time Temp Pulse Resp B/P (MAP) Pulse Ox O2 Delivery O2 Flow Rate FiO2 05/01/17 18:31 89 18 92 BiPAP/CPAP 4.0 05/01/17 18:15 97 97/68 (78) 96 Nasal Cannula 4.0 05/01/17 16:00 Nasal Cannula 3.0 05/01/17 15:33 36.4 67 22 111/62 (78) 98 Nasal Cannula 3.0 05/01/17 14:44 70 20 110/59 (76) 98 05/01/17 14:25 77 18 98 Nasal Cannula 3.0 05/01/17 14:16 73 16 98/79 (85) 95 05/01/17 13:52 86 16 101/64 (76) 95 05/01/17 13:24 86 16 103/63 (76) 96 05/01/17 13:00 134 18 155/72 (99) 96 Nasal Cannula 4.0 05/01/17 12:34 134 18 133/69 (90) 98 Nasal Cannula 4.0 05/01/17 12:01 122 12 161/73 (102) 99 Nasal Cannula 4 05/01/17 12:00 Nasal Cannula 4.0 05/01/17 11:50 119 12 166/73 (104) 95 Nasal Cannula 4 05/01/17 11:40 92 14 122/63 (82) 98 Nasal Cannula 4 Physical Exam: General- No acute distress Head- atraumatic Eyes- PERRL, EOMI ENT- oropharynx clear Neck- supple, no JVD Lungs- Crackles Heart- No murmur Abdomen- normal bowel sounds, soft Extremities-no calf tenderness Neuro- alert, oriented x 3; PERRL, EOMI Skin- warm & dry Laboratory Results: Last 24 Hours Test 04/30/17 20:06 04/30/17 23:14 05/01/17 00:50 05/01/17 02:20 Bedside Glucose 227 mg/dl 246 mg/dl 123 mg/dl Activated Partial Thromboplast Time 177.4 SECONDS Partial Thromboplastin Ratio 6.7 Test 05/01/17 03:49 05/01/17 05:09 05/01/17 05:35 05/01/17 06:48 White Blood Count 15.82 K/uL Red Blood Count 3.40 M/uL Hemoglobin 10.6 g/dL Hematocrit 32.4 % Mean Corpuscular Volume 95.3 fL Mean Corpuscular Hemoglobin 31.2 pg Mean Corpuscular Hemoglobin Concent 32.7 g/dl RDW Standard Deviation 48.9 fL RDW Coefficient of Variation 14.2 % Platelet Count 270 K/uL Mean Platelet Volume 8.8 fL Prothrombin Time 34.5 SECONDS Prothromb Time International Ratio 3.1 Activated Partial Thromboplast Time 50.4 SECONDS Partial Thromboplastin Ratio 1.9 Sodium Level 135 mmol/L Potassium Level 4.3 mmol/L Chloride Level 97 mmol/L Carbon Dioxide Level 34 mmol/L Anion Gap 4.0 mmol/L Blood Urea Nitrogen 23 mg/dl Creatinine 1.00 mg/dl Est Creatinine Clear Calc Drug Dose 66.5 ml/min Estimated GFR () 70.9 Estimated GFR (Non- 61.2 BUN/Creatinine Ratio 23.3 Random Glucose 69 mg/dl Calcium Level 8.6 mg/dl Bedside Glucose 57 mg/dl 93 mg/dl 66 mg/dl Test 05/01/17 07:04 05/01/17 09:07 05/01/17 09:32 05/01/17 09:44 Bedside Glucose 171 mg/dl 61 mg/dl 81 mg/dl 129 mg/dl Test 05/01/17 12:24 05/01/17 12:40 05/01/17 16:05 Bedside Glucose 37 mg/dl 117 mg/dl 173 mg/dl Assessment & Plan ATRIAL FLUTTER WITH RVR Sent from cardiology clinic with HR in 130s; failed recent outpatient titration of metoprolol Rate is controlled Received IV lopressor and IV cardizem On cardizem drip IV amiodarone was given continue metoprolol 100mg BID Not a good candidate for antiarrhythmic med due to QT prolongation cardiac marker negative cardiology on board INR 3.1 today heparin drip discontinue HUSSEIN done today showed no left atrial appendage thrombus Coumadin tonight dose on hold Consider AFL ablation as plan tomorrow NPO after midnight HYPOGLYCEMIA Presented with BSG in 40s, symptomatic Reported hyper and hypoglycemia at home Novolog sliding scale coverage pharmacy consulted for glycemic control 05/01 BS was low this morning because pt was NPO for the HUSSEIN received dextrose Lantus has been decreased since it will be NPO after midnight will decrease night dose lantus by 50% for tonight Hold AM dose lantus Continue monitor BS HYPERKALEMIA received calcium gluconate, sodium, IV insulin, dextrose and Kayexalate K is stable continue monitor BMP CHRONIC HYPOXIC RESPIRATORY FAILURE / COPD Continue prednisone Continue supplemental O2 and Duoneb treatment Crackles on exam repeat cxr DARIUS BIPAP HS while hospitalized; needs outpatient sleep study THRUSH Nystatin ordered CHRONIC DIASTOLIC CHF Compensated clinically Continue home dose of Lasix Pt said that she took lasix BID will verify with outpt med rec HYPERTENSION Stable, continue home meds HYPOTHYROIDISM Continue levothyroxine CHRONIC PAIN Continue Fentanyl patch RECENT RLE FRACTURE Ortho was consulted recommended to continue conservative management Right foot xray showed decreased conspicuity of the previously noted fracture through the base of the second metatarsal. No new malalignment. Right Tibia/Fibula xray showed no change in the alignment of the comminuted fracture involving the mid fibular shaft Weightbearing using a walker and weightbearing as tolerated in good diabetic shoes. Follow-up in 4-6 weeks with repeat x-rays AP and lateral right tib-fib and 3 views right foot BIPOLAR DISORDER Continue home medications DVT PROPHYLAXIS Coumadin on hold for tonight 3.1 on heparin drip d/c FULL CODE Consultants: cardiology Current Inpatient Medications: Current Inpatient Medications Medications (Trade) Dose Ordered Sig/Artemio Route Start Time Stop Time Status Last Admin Dose Admin Acetaminophen (Tylenol Tab) 650 mg Q4H PRN PO 04/28/17 16:00 05/28/17 15:59 04/29/17 06:41 650 MG Diltiazem HCl 125 mg/Dextrose 125 ml @ 0 mls/hr Q0M PRN IV 04/28/17 16:00 05/28/17 15:59 05/01/17 18:46 10 MLS/HR Miscellaneous Information (Consult Glycemic Management Pharmacy) 1 ea UD PRN N/A 04/28/17 16:07 05/28/17 16:06 Insulin Aspart (novoLOG ASPART) SLIDING SCALE If C... ACHS SC 04/28/17 21:00 05/28/17 20:59 05/01/17 18:08 9 UNITS Glucose (Glucose 40% Gel) 15-30 GRAMS 15 GRAMS... UD PRN PO 04/28/17 16:15 05/28/17 16:14 Glucose (Glucose Chew Tab) 4-8 Tablets 4 Tabl... UD PRN PO 04/28/17 16:15 05/28/17 16:14 05/01/17 04:38 4 TABS Dextrose (Dextrose 50% 50ML Syringe) 25-50ML OF 50% DW IV FOR... UD PRN IV 04/28/17 16:15 05/28/17 16:14 05/01/17 12:30 50 ML Glucagon (Glucagon Inj) 1 mg UD PRN SQ 04/28/17 16:15 05/28/17 16:14 Amitriptyline HCl (Elavil Tab) 50 mg HS PO 04/28/17 21:00 05/28/17 20:59 04/30/17 21:13 50 MG Atorvastatin Calcium (Lipitor Tab) 40 mg HS PO 04/28/17 21:00 05/28/17 20:59 04/30/17 21:13 40 MG Cetirizine HCl (zyrTEC TAB) 10 mg QAM PO 04/29/17 09:00 05/29/17 08:59 05/01/17 13:15 10 MG Epinephrine (Epipen) 0.3 mg UD PRN IM 04/28/17 16:15 05/28/17 16:14 Fentanyl (Duragesic Patch) 50 mcg Q72H TD 04/30/17 11:00 05/14/17 10:59 04/30/17 10:30 50 MCG Furosemide (Lasix Tab) 20 mg DAILY PO 04/29/17 09:00 05/29/17 08:59 05/01/17 13:16 20 MG Gabapentin (Neurontin Tab) 800 mg TID PO 04/28/17 21:00 05/28/17 20:59 05/01/17 13:20 800 MG Levothyroxine Sodium (Synthroid Tab) 50 mcg DAILYBB PO 04/29/17 06:00 05/29/17 05:59 05/01/17 05:54 50 MCG Metoclopramide HCl (Reglan Tab) 5 mg TIDM PO 04/28/17 18:00 05/28/17 17:59 05/01/17 18:04 5 MG Metoprolol Tartrate (Lopressor Tab) 100 mg BID PO 04/28/17 21:00 05/28/17 20:59 05/01/17 13:16 100 MG Multivitamins (Multivitamin Tab) 1 tab QAM PO 04/29/17 09:00 05/29/17 08:59 05/01/17 13:16 1 TAB Olanzapine (Zyprexa Tab) 2.5 mg HS PO 04/28/17 21:00 05/28/17 20:59 04/30/17 21:15 2.5 MG Pantoprazole Sodium (Protonix Tab) 40 mg DAILY PO 04/29/17 09:00 05/29/17 08:59 05/01/17 13:15 40 MG Trazodone HCl (Desyrel Tab) 150 mg HS PO 04/28/17 21:00 05/28/17 20:59 04/30/17 21:13 150 MG Venlafaxine HCl (effeXOR EXTENDED REL CAP) 225 mg QAM PO 04/29/17 09:00 05/29/17 08:59 05/01/17 13:16 225 MG Warfarin Sodium (Coumadin Tab) 7.5 mg MoTuWeFrSa@1600 PO 04/29/17 16:00 05/29/17 15:59 Future Hold 04/30/17 16:03 7.5 MG Calcitriol (Rocaltrol Cap) 0.25 mcg MoWeFr@0900 PO 04/30/17 09:00 05/30/17 08:59 04/30/17 07:52 0.25 MCG Nystatin (Mycostatin Susp) 5 ml QID PO 04/28/17 17:00 05/08/17 16:59 05/01/17 18:04 5 ML Ipratropium [place] (Atrovent 0.02% 0.5MG/2.5ML Neb) 0.5 mg Q6R INH 04/28/17 21:00 05/28/17 20:59 05/01/17 18:31 0.5 MG Levalbuterol (Xopenex 1.25MG/ 0.5ML Neb) 1.25 mg Q6R INH 04/28/17 21:00 05/28/17 20:59 05/01/17 18:31 1.25 MG Miscellaneous (Fentanyl Patch Remove & Waste) 1 ea Q3D@1059 N/A 04/30/17 10:59 05/30/17 10:58 04/30/17 10:30 1 EA Miscellaneous Information (Check Fentanyl Patch Placement) 1 ea QS N/A 04/29/17 00:00 05/29/17 00:00 05/01/17 15:58 1 EA Prednisone (PredniSONE TAB) 40 mg DAILY PO 04/29/17 09:00 05/04/17 08:59 05/01/17 13:15 40 MG Oxycodone HCl (Roxicodone Immediate Rel Tab) 10 mg Q6H PRN PO 04/29/17 10:30 05/13/17 10:29 05/01/17 13:52 10 MG Insulin Glargine (Lantus Solostar Pen) 38 units QAM SC 04/30/17 09:00 05/30/17 08:59 Future Hold 05/01/17 08:49 38 UNITS Polyethylene (Miralax Powder Packet) 17 gm QAM PO 05/01/17 09:00 05/31/17 08:59 05/01/17 13:17 17 GM Nicotine (Nicoderm Cq 21MG Patch) 1 patch QAM EXT 05/01/17 09:00 05/31/17 08:59 Miscellaneous (Remove Nicoderm Patch) 1 ea HS N/A 04/30/17 21:00 05/30/17 20:59 04/30/17 21:12 1 EA Insulin Glargine (Lantus Solostar Pen) SEE PROTOCOL TEXT PM SC 05/01/17 21:00 05/31/17 20:59 Future Hold Sodium Chloride 1,000 ml @ 15 mls/hr Q24H ONCE IV 05/02/17 06:00 05/03/17 05:59
--- NOTE | 2017-05-01 20:08 | DIAGNOSTIC IMAGING REPORT ---
CHEST ONE VIEW PORTABLE CLINICAL HISTORY: 61 years-old Female presenting with SOB with minimal exertion. TECHNIQUE: Portable upright AP view of the chest was obtained. COMPARISON: 04/28/2017. FINDINGS: Atherosclerosis of the aortic arch. Prominence of the main pulmonary artery consistent with enlargement. Enlarged cardiac silhouette, unchanged. Persistent mildly prominent pulmonary vasculature. Stable slight interval decrease in bibasilar hazy opacities. No large effusion or pneumothorax. Redemonstration of right lateral lung herniation. Surgical clips project over the right axilla and right upper lung. Osseous structures normal. Upper abdomen normal. IMPRESSION: 1. Cardiomegaly with slight interval decrease in suspected mild pulmonary edema. 2. Enlarged main pulmonary artery. Electronically signed by: Erick Garner M.D. 05/01/2017 8:06 PM Dictated Date/Time: 05/01/2017 8:04 PM
[2017-05-01] MEDS ORDERED: BISACODYL 10 MG SUPP ONE (20:24)
[2017-05-01] MEDS: ATORVASTATIN 40 MG TAB PO SCH (20:29)
[2017-05-01] MEDS: AMITRIPTYLINE HCL 50 MG TAB PO SCH (20:29)
[2017-05-01] MEDS: TRAZODONE HCL 50 MG TAB PO SCH (20:30)
[2017-05-01] MEDS: OLANZAPINE 2.5 MG TAB PO SCH (20:31)
[2017-05-01] MEDS ORDERED: INSULIN GLARGINE SOLOSTAR 100 UNITS/ML 3 ML PEN SC SCH ×2 (21:00)
[2017-05-02] VITALS (14 sets, daily range): BP systolic 108–150; BP diastolic 52–84; PULSE 78–132; TEMP 36.5–36.9; O2SAT 93–100
[2017-05-02] MEDS: IPRATROPIUM BROMIDE NEB SOLN 0.02% 2.5 ML VIAL INH SCH ×4 (01:13→20:11)
[2017-05-02] MEDS: LEVALBUTEROL 1.25MG/0.5ML NEB INH SCH ×4 (01:13→20:11)
[2017-05-02] MEDS ORDERED: SODIUM CHLORIDE 0.9% 1000ML 1,000 ML IV ONE (06:00)
[2017-05-02] MEDS: LEVOTHYROXINE 50 MCG TAB PO SCH (06:09)
[2017-05-02] MEDS: INSULIN ASPART 100 UNITS/ML 3 ML PEN SC SCH ×4 (07:00→21:33)
[2017-05-02] MEDS ORDERED: PROPOFOL IV EMULSION 10 MG/ML 20 ML VIAL IV ONE (07:12)
[2017-05-02] MEDS ORDERED: LIDOCAINE HCL 2% 2 ML VIAL (20MG/ML) ONE (07:12)
[2017-05-02 07:24] LABS: HEMATOCRIT 35.7 % (37-47); MEAN CELL VOLUME 97.5 fL (80-100); MEAN CORPUSCULAR HEMOGLOBIN 30.9 pg (25-34); MEAN CORPUSCULAR HGB CONC 31.7 g/dl (32-36); MEAN PLATELET VOLUME 9.3 fL (7.4-10.4); PLATELET COUNT 323 K/uL (130-400); RED BLOOD COUNT 3.66 M/uL (4.2-5.4); WHITE BLOOD COUNT 15.82 K/uL (4.8-10.8)
[2017-05-02] MEDS: METOCLOPRAMIDE HCL 10 MG TAB PO SCH ×3 (07:30→16:50)
[2017-05-02 07:31] LABS: INR 3.3 (0.9-1.1); PROTHROMBIN TIME (PATIENT) 36.9 SECONDS (9.0-12.0)
[2017-05-02] MEDS ORDERED: MIDAZOLAM HCL 5 MG/ML 1 ML VIAL ONE (07:33)
[2017-05-02] MEDS ORDERED: FENTANYL CITRATE INJ 50 MCG/1 ML 2 ML VIAL ONE (07:33)
--- NOTE | 2017-05-02 07:34 | History & Physical Bridge Note ---
H&P Re-Evaluation Bridge Note: I have examined the patient, reviewed the History & Physical and in the interval since the performance of the History & Physical I have noted the following changes of clinical significance: No changes noted.
--- NOTE | 2017-05-02 07:34 | Procedure Note ---
Pre-Mod Sedation Assessment General Date of Moderate Sedation: May 02, 2017. Vital Signs: Vital Signs Past 12 Hours Date Time Temp Pulse Resp B/P (MAP) Pulse Ox O2 Delivery O2 Flow Rate FiO2 05/02/17 04:00 36.7 124 18 138/84 (102) 100 BiPAP 05/02/17 04:00 Nasal Cannula BiPAP 05/02/17 01:13 78 18 93 BiPAP/CPAP 4.0 05/02/17 00:00 Nasal Cannula BiPAP 05/01/17 23:36 36.5 131 22 118/71 (87) 94 Room Air 05/01/17 20:00 CPAP 05/01/17 19:37 36.5 100 23 116/80 (92) 96 Nasal Cannula 4.0 Review Cardiovascular: regular rate, rhythm Abdomen: non tender, soft Lungs: lungs clear Airway Class: II Pre-Sedation Airway Assessment Oral Cavity: Dentures Able to Visualize Vocal Cords: No Short Thick Neck: No Hx of Sleep Apnea: Yes Smoking Status: Heavy Tobacco Smoker Procedure Planning Contraindications-for Mod Sed: None Yes Notes The planned sedation has been discussed with the patient and consent obtained. I have identified the patient, determined the appropriateness of sedation and have assessed the patient immediately prior to the procedure. All medicine(s) and interventions are by my order.
[2017-05-02 08:00] LABS: BUN/CREATININE RATIO 24.5 (10-20); CALCIUM 9.6 mg/dl (8.5-10.1); CREATININE 1.4 mg/dl (0.60-1.20); MAGNESIUM 2.4 mg/dl (1.8-2.4); POTASSIUM 5.4 mmol/L (3.5-5.1)
[2017-05-02] MEDS ORDERED: SODIUM POLYST. SULF SUSP 15G/60ML PO ONE ×2 (08:45→16:00)
[2017-05-02] MEDS ORDERED: INSULIN GLARGINE SOLOSTAR 100 UNITS/ML 3 ML PEN SC ONE (09:00)
[2017-05-02] MEDS: NYSTATIN SUSP 500,000 U/5 ML UDC PO SCH ×4 (09:00→21:10)
[2017-05-02] MEDS ORDERED: ACETAMINOPHEN 325 MG TAB PO PRN (09:30)
[2017-05-02] MEDS ORDERED: KETOROLAC TROMETHAMINE 10 MG TAB PO PRN (09:30)
--- NOTE | 2017-05-02 09:45 | Pharmacy Progress Note ---
Glycemic Control Progress Note Date of Service May 02, 2017. Scope Glycemic Pharmacist consulted for glycemic control to write orders per [facility] inpatient glycemic control protocol. Objective Accuchecks BSG (last 24hrs): Test 05/01/17 09:32 05/01/17 09:44 05/01/17 12:24 05/01/17 12:40 Bedside Glucose 81 mg/dl (70-90) 129 mg/dl (70-90) 37 mg/dl (70-90) 117 mg/dl (70-90) Test 05/01/17 16:05 05/01/17 20:27 05/01/17 23:28 05/02/17 04:08 Bedside Glucose 173 mg/dl (70-90) 247 mg/dl (70-90) 78 mg/dl (70-90) 183 mg/dl (70-90) Test 05/02/17 06:28 05/02/17 06:48 Random Glucose 236 mg/dl (70-99) Bedside Glucose 226 mg/dl (70-90) HbA1c: Test 04/29/17 07:05 Hemoglobin A1c 9.8 % (4.5-5.6) H Recent Pertinent Medications The patient is currently receiving: * Basal insulin: Lantus 38 units SQ in the morning; evening dose of Lantus held * Correctional Insulin: Novolog Correction per scale ACHS Goal Range: Low 110 mg/dL - High 150 mg/dL Correction Factor: 20 mg/dL/unit * Prandial insulin: Per carb ratio of 1 unit per 6 grams CHO consumed Outpatient Anti-Diabetic Meds Lantus 36 units SQ BID (recently reduced from Lantus 40 units SQ BID secondary to hypoglycemia) Novolog 5 units with biggest meal of the day (patient not taking secondary to hypoglycemia) Assessment & Plan ASSESSMENT: * See progress note from 04/28/17 for more background info, in short: Ms Minaya is a 61 y/o admitted with afib with RVR. She is to undergo an ablation today. During this admission, the patient's insulin requirements have decreased significantly from ~150 units/day to below 100 units/day. * Pt receiving SQ basal bolus insulin regimen for hyperglycemia secondary to baseline DM (outpatient regimen on hold),COPD exacerbation, Cardizem drip mixed in dextrose, ablation (POD 0), and currently on prednisone 40 mg PO daily * Patient is currently receiving an average of 60? units of insulin per day * 38 units of basal insulin * 26 units of prandial/correctional insulin * BSGs ranging 37 - 247 mg/dl over the past 24hrs * Changes needed to insulin regimen: * AM Fasting BSG = 226 mg/dl. This is slightly above goal range for the patient. HOWEVER, the patient had a low blood sugar yesterday around lunchtime. The patient's fasting blood sugar was 129 mg/dL. This indicates that the patient 's true basal needs are between 38 units and 62 units. Today the patient is NPO for an ablation. A 20% reduction was implemented and Lantus was split 50/50 to Lantus 25 units SQ BID. * Post-prandial BSGs appear to not be well-controlled. The patient's blood sugars increased yesterday from dinner blood sugar of 173 mg/dL to 247 mg/dL at bedtime. Patient ate 67 grams of carbohydrates at bedtime. Blood sugar at midnight was 78 mg/dL. Carbohydrate coverage appears to be too tight at this time (primarily received carbohydrate coverage 10 units at bedtime). Will loosen slightly to a ratio of 8. Continue correction factor at this time. * Total daily dose = 60-80 units. Reduced Lantus and correctional insulin appropriately. PLAN FOR INPATIENT GLYCEMIC CONTROL: * DECREASING Lantus to 25 units SQ BID * Continuing correction factor of 20 mg/dl/unit * LOOSENING carb ratio to 1 unit per 8 grams CHO consumed * Continuing goal range of Low 110 mg/dL - High 150 mg/dL RECOMMENDATIONS FOR DISCHARGE: * Dependent on discharge plans for patient * Please note that the plan above was derived based on current level of insulin resistance and hospital stress. These recommendations are appropriate for inpatient admission only. Plan of care upon discharge will need to be reassessed to avoid potential outpatient hypo/hyperglycemia. Thank you.
--- NOTE | 2017-05-02 09:46 | Procedure Note ---
Post-Mod Sedation Assessment General Date of Moderate Sedation May 02, 2017. Vital Signs: Vital Signs Past 12 Hours Date Time Temp Pulse Resp B/P (MAP) Pulse Ox O2 Delivery O2 Flow Rate FiO2 05/02/17 07:46 126 18 97 Nasal Cannula 3.0 05/02/17 07:44 36.7 132 18 134/81 (98) 97 05/02/17 04:00 36.7 124 18 138/84 (102) 100 BiPAP 05/02/17 04:00 Nasal Cannula BiPAP 05/02/17 01:13 78 18 93 BiPAP/CPAP 4.0 05/02/17 00:00 Nasal Cannula BiPAP 05/01/17 23:36 36.5 131 22 118/71 (87) 94 Room Air Review - Discharge Criteria Vital Signs Stable: Yes Alert/Oriented/Conversant: Yes Returned to Baseline Mental St: Yes Nausea Absent/Minimal: Yes Pain/Discomfort/Absent/Minimal: Yes Normal/Baseline Respirations: Yes Active Bleeding?: N/A Prescriptions Given: None Specific Proced. D/C Criteria Distal Pulses Present (Cardiac: N/A Groin site assessed-Card Cath: N/A Voided Prior To Discharge: N/A Discharged Patients Adult Escort/Transportation: N/A
--- NOTE | 2017-05-02 09:46 | Cardiology Procedure Brief Nt ---
Preliminary Cardiology Note Procedure Date May 02, 2017. Pre-Procedure Diagnosis Atrial flutter Post-Procedure Diagnosis typical atrial flutter, dual pathways with echo beats Procedure(s) Performed Three-dimensional mapping 3 catheter EP study Tricuspid valve to inferior vena caval isthmus ablation Inspector Watch Train Dr. Masterson Felting Machine Operator(s) none Estimated Blood Loss 30 cc Preliminary Findings Successful ablation of the tricuspid valve to inferior vena caval isthmus with bidirectional block and termination of atrial flutter Post ablation electrophysiologic study showed dual pathways with echo beats, no inducible SVT however extensive induction was not attempted Recommendations Monitor overnight Specimens None Anesthesia local with sedation Complication(s) None Disposition PCU
[2017-05-02] MEDS: VENLAFAXINE HCL XR 75 MG CAPXR PO SCH (10:39)
[2017-05-02] MEDS: PANTOprazole SOD 40 MG TAB PO SCH (10:40)
[2017-05-02] MEDS: MULTIVITAMIN TAB PO SCH (10:40)
[2017-05-02] MEDS: POLYETHYLENE (MIRALAX) 17 GM PACK PO SCH (10:40)
[2017-05-02] MEDS: CALCITRIOL 0.25 MCG CAP PO SCH (10:41)
[2017-05-02] MEDS: METOPROLOL TARTRATE 100 MG TAB PO SCH ×2 (10:41→21:15)
[2017-05-02] MEDS: CETIRIZINE HCL 10 MG TAB PO SCH (10:41)
[2017-05-02] MEDS: GABAPENTIN 800 MG TAB PO SCH ×3 (10:42→21:10)
[2017-05-02] MEDS: NICOTINE 21 MG/24 HR TDSY EXT SCH (10:54)
[2017-05-02] MEDS: OXYCODONE HCL IR 5 MG TAB (IMMEDIATE RELEASE) PO PRN ×2 (11:10→18:19)
[2017-05-02] MEDS: CHECK FENTANYL PATCH PLACEMENT SCH ×2 (12:51→16:51)
--- NOTE | 2017-05-02 15:03 | Cardiology Follow-Up ---
Subjective General Date of Service: May 02, 2017. Chief Complaint: follow up atrial flutter Pt evaluation today including: conversation w/ patient, conversation w/ family , physical exam History of Present Illness The patient is a 61 year old female seen in follow up. Patient feels well. Tolerated EP study/ ablation well this am via R femoral vein. EKG post procedure and telemetry reveals SR with RBBB. Allergies Coded Allergies: BEE STING (Verified Allergy, Severe, SWELLING, 04/20/17) Lisinopril (Verified Allergy, Intermediate, FACE SWELLING, 04/20/17) Potato (Verified Allergy, Intermediate, BBQ chips - facial swelling, ) Metronidazole (Verified Allergy, Mild, FACE SWELLING, 04/20/17) [place] (Verified Allergy, Mild, HIVES, 04/20/17) Alprazolam (Verified Allergy, Unknown, RED FACE, FACE SWELLING, 04/20/17) Lactose (Verified Adverse Reaction, Intermediate, VOMTING DIARRHEA ABDOMINAL PAIN, 04/20/17) Prednisone (Verified Adverse Reaction, Mild, unknown, 04/20/17) Colesevelam (Verified Adverse Reaction, Unknown, unknown, 04/20/17) [place] (Verified Adverse Reaction, Unknown, jitters, 04/20/17) Social History Smoking Status: Heavy Tobacco Smoker Hx Tobacco Use In Past Year?: Yes Hx Alcohol Use - Type And Amou: No Hx Substance Use - Type And Am: Yes (SEE CURRENT E-MAR) Problem List Medical Problems: (1) Acute gastroenteritis Status: Acute (2) Altered mental status Status: Acute (3) Atrial flutter with rapid ventricular response Status: Acute (4) Back pain Status: Acute (5) Bradycardia Status: Acute (6) Bronchitis Status: Acute (7) Bronchitis Status: Acute (8) CAP (community acquired pneumonia) Status: Acute (9) Cellulitis Status: Acute (10) Cervical radiculopathy Status: Acute (11) Chest pain Status: Acute (12) Chest pain of unknown etiology Status: Acute (13) Chest wall pain Status: Acute (14) Chest wall pain Status: Acute (15) CHF exacerbation Status: Acute (16) Chronic right shoulder pain Status: Acute (17) Congestive heart failure Status: Acute (18) Congestive heart failure Status: Acute (19) COPD exacerbation Status: Acute (20) COPD exacerbation Status: Acute (21) COPD exacerbation Status: Acute (22) Cough Status: Acute (23) Dehydration Status: Acute (24) Depressed Status: Acute (25) Diarrhea Status: Acute (26) Diarrhea Status: Acute (27) Diarrhea Status: Acute (28) Diffuse abdominal pain Status: Acute (29) Diffuse abdominal pain Status: Acute (30) Dysuria Status: Acute (31) Erythema of face Status: Acute (32) Fatigue Status: Acute (33) Fluid overload Status: Acute (34) Generalized weakness Status: Acute (35) Headache Status: Acute (36) History of COPD Status: Acute (37) Hyperglycemia Status: Acute (38) Hypoxia Status: Acute (39) Leukocytosis Status: Acute (40) Lower back pain Status: Acute (41) Pelvic cyst Status: Acute (42) PNA (pneumonia) Status: Acute (43) Rash Status: Acute (44) Request for narcotic pain medication Status: Acute (45) Respiratory failure Status: Acute (46) Right fibular fracture Status: Acute (47) Right leg pain Status: Acute (48) Shortness of breath Status: Acute (49) Shortness of breath Status: Acute (50) Tobacco use Status: Acute (51) Urinary tract infection Status: Acute (52) UTI (urinary tract infection) Status: Acute (53) Weakness Status: Acute (54) Wheezing Status: Acute Physical Exam Vital Signs Last Vital Signs Documentation Date Time Temp Pulse Resp B/P (MAP) Pulse Ox O2 Delivery O2 Flow Rate FiO2 05/02/17 14:50 89 18 97 Nasal Cannula 3.0 05/02/17 11:29 36.8 138/78 (98) Physical Exam Constitutional: General Apperance: heathly-appearing Level of Distress: NAD Psychiatric: Mental Status: active & alert Head: normocephalic Eyes: EOM: EOMI ENMT: normal ENT inspection, hearing grossly normal Neck: supple, no masses Lungs: Respiratory effort: no dyspnea, good air movement Auscultation: CTA except as noted, no wheezing, no rales/crackles Cardiovascular: Heart Auscultation: RRR, no murmurs, no rubs, no gallops Peripheral Pulses: Bruits: none appreciated Abdomen: Bowel Sounds: normal Inspection & Palpation: soft, no tenderness, guarding & rebound, no masses Musculoskeletal: normal strength (5/5 throughout) Extremities: no cyanosis, no edema, no varicosities Neurologic: Gait & Station: pertinent finding (no focal defitics ) Cranial Nerves: grossly intact Sensation: grossly intact Assessment and Plan Assessment and Plan Impression: 61 year old female 1. Recurrent atrial flutter, RVR for which patient underwent right sided flutter ablation 05/02/17. 2. Underlying severe COPD 3. Normal LVEF , echo at [facility] 04/07/17, despite history of cor pulmonale , normal RV size and RVEF noted at time of echo 4. Remote mitral valve repair , due to valve strands, cardioembolic stroke 6. HUSSEIN (performed prior to EP procedure to rule out CARLENE thrombus given transient INR < 2) 05/01/17 with no left atrial appendage thrombus, she did have a small mobile echodensity on a aortic valve consistent with a Lambl's excrescence. 7. Recurrent hyperkalemia- received Kayexalate again today 05/02/17. Discussion / Plan: EP study results discussed with Dr Masterson per his note "Successful ablation of the tricuspid valve to inferior vena caval isthmus with bidirectional block and termination of atrial flutter Post ablation electrophysiologic study showed dual pathways with echo beats, no inducible SVT however extensive induction was not attempted" Given risk for future atrial fibrillation or SVT , continue metoprolol tartrate 100 mg BID as HR and BP levels allow. May need future outpt monitor to exclude occult prolonged SVT depending on how she does in the future. Continue coumadin, for stroke prophylaxis and Lambl's excrescence. If future outpt nuclear monitoring technician performed > 1 month post ablation = no AFL can consider risk vs benefits of stopping coumadin. Resume coumadin, low dose tonight 2.5 mg , then check INR in am, 5 mg Disposition: follow up R Groin site in am, INR, and Potassium . Arianne Underwood DO Laboratory Results Last 24 Hours Test 05/01/17 16:05 05/01/17 20:27 05/01/17 23:28 05/02/17 04:08 Bedside Glucose 173 mg/dl 247 mg/dl 78 mg/dl 183 mg/dl Test 05/02/17 06:28 05/02/17 06:48 05/02/17 11:17 White Blood Count 15.82 K/uL Red Blood Count 3.66 M/uL Hemoglobin 11.3 g/dL Hematocrit 35.7 % Mean Corpuscular Volume 97.5 fL Mean Corpuscular Hemoglobin 30.9 pg Mean Corpuscular Hemoglobin Concent 31.7 g/dl RDW Standard Deviation 51.5 fL RDW Coefficient of Variation 14.7 % Platelet Count 323 K/uL Mean Platelet Volume 9.3 fL Prothrombin Time 36.9 SECONDS Prothromb Time International Ratio 3.3 Sodium Level 136 mmol/L Potassium Level 5.4 mmol/L Chloride Level 99 mmol/L Carbon Dioxide Level 34 mmol/L Anion Gap 3.0 mmol/L Blood Urea Nitrogen 34 mg/dl Creatinine 1.40 mg/dl Est Creatinine Clear Calc Drug Dose 48.5 ml/min Estimated GFR () 47.2 Estimated GFR (Non- 40.7 BUN/Creatinine Ratio 24.5 Random Glucose 236 mg/dl Calcium Level 9.6 mg/dl Magnesium Level 2.4 mg/dl Bedside Glucose 226 mg/dl 121 mg/dl
[2017-05-02] MEDS ORDERED: WARFARIN SOD 2.5 MG TAB PO SCH (16:00)
[2017-05-02] MEDS ORDERED: BISACODYL 10 MG SUPP PR ONE ×2 (18:15→21:30)
--- NOTE | 2017-05-02 18:15 | Progress Note ---
Medicine Progress Note Date & Time of Visit: May 02, 2017 at 18:15. Subjective Pt was seen and examined Sitting in bed with no distress Denies any chest pain, palpitation Objective Last 8 Hrs Date Time Temp Pulse Resp B/P (MAP) Pulse Ox O2 Delivery O2 Flow Rate FiO2 05/02/17 16:00 Room Air 05/02/17 15:06 36.5 95 20 119/73 (88) 93 Room Air 3.0 05/02/17 14:50 89 18 97 Nasal Cannula 3.0 05/02/17 11:29 36.8 92 20 138/78 (98) 99 Nasal Cannula 3.0 05/02/17 11:20 36.6 95 18 148/71 (96) 100 Nasal Cannula 3.0 05/02/17 10:52 36.9 97 18 135/82 (99) 96 Nasal Cannula 3.0 05/02/17 10:32 36.6 96 20 130/73 (92) 97 Nasal Cannula 3.0 Physical Exam: General- No acute distress Head- atraumatic Eyes- PERRL, EOMI ENT- oropharynx clear Neck- supple, no JVD Lungs- Crackles Heart- No murmur Abdomen- normal bowel sounds, soft Extremities-no calf tenderness Neuro- alert, oriented x 3; PERRL, EOMI Skin- warm & dry Laboratory Results: Last 24 Hours Test 05/01/17 20:27 05/01/17 23:28 05/02/17 04:08 05/02/17 06:28 Bedside Glucose 247 mg/dl 78 mg/dl 183 mg/dl White Blood Count 15.82 K/uL Red Blood Count 3.66 M/uL Hemoglobin 11.3 g/dL Hematocrit 35.7 % Mean Corpuscular Volume 97.5 fL Mean Corpuscular Hemoglobin 30.9 pg Mean Corpuscular Hemoglobin Concent 31.7 g/dl RDW Standard Deviation 51.5 fL RDW Coefficient of Variation 14.7 % Platelet Count 323 K/uL Mean Platelet Volume 9.3 fL Prothrombin Time 36.9 SECONDS Prothromb Time International Ratio 3.3 Sodium Level 136 mmol/L Potassium Level 5.4 mmol/L Chloride Level 99 mmol/L Carbon Dioxide Level 34 mmol/L Anion Gap 3.0 mmol/L Blood Urea Nitrogen 34 mg/dl Creatinine 1.40 mg/dl Est Creatinine Clear Calc Drug Dose 48.5 ml/min Estimated GFR () 47.2 Estimated GFR (Non- 40.7 BUN/Creatinine Ratio 24.5 Random Glucose 236 mg/dl Calcium Level 9.6 mg/dl Magnesium Level 2.4 mg/dl Test 05/02/17 06:48 05/02/17 11:17 05/02/17 16:18 05/02/17 17:36 Bedside Glucose 226 mg/dl 121 mg/dl 194 mg/dl Assessment & Plan ATRIAL FLUTTER WITH RVR Sent from cardiology clinic with HR in 130s; failed recent outpatient titration of metoprolol Rate is controlled Received IV lopressor and IV cardizem On cardizem drip IV amiodarone was given continue metoprolol 100mg BID Not a good candidate for antiarrhythmic med due to QT prolongation cardiac marker negative cardiology on board INR 3.1 today heparin drip discontinue HUSSEIN done today showed no left atrial appendage thrombus Coumadin tonight dose on hold Consider AFL ablation as plan tomorrow NPO after midnight 05/02 Ablation done today that was successful Continue metoprolol 100mg BID Stable HYPOGLYCEMIA Presented with BSG in 40s, symptomatic Reported hyper and hypoglycemia at home Novolog sliding scale coverage pharmacy consulted for glycemic control 05/01 BS was low this morning because pt was NPO for the HUSSEIN received dextrose Lantus has been decreased since it will be NPO after midnight will decrease night dose lantus by 50% for tonight Hold AM dose lantus Continue monitor BS HYPERKALEMIA received calcium gluconate, sodium, IV insulin, dextrose and Kayexalate K 5.5 today Kayexalate given continue monitor BMP CHRONIC HYPOXIC RESPIRATORY FAILURE / COPD Continue prednisone Continue supplemental O2 and Duoneb treatment Crackles on exam repeat cxr DARIUS BIPAP HS while hospitalized; needs outpatient sleep study THRUSH Nystatin ordered CHRONIC DIASTOLIC CHF Compensated clinically Continue home dose of Lasix Pt said that she took lasix BID will verify with outpt med rec HYPERTENSION Stable, continue home meds HYPOTHYROIDISM Continue levothyroxine CHRONIC PAIN Continue Fentanyl patch RECENT RLE FRACTURE Ortho was consulted recommended to continue conservative management Right foot xray showed decreased conspicuity of the previously noted fracture through the base of the second metatarsal. No new malalignment. Right Tibia/Fibula xray showed no change in the alignment of the comminuted fracture involving the mid fibular shaft Weightbearing using a walker and weightbearing as tolerated in good diabetic shoes. Follow-up in 4-6 weeks with repeat x-rays AP and lateral right tib-fib and 3 views right foot BIPOLAR DISORDER Continue home medications DVT PROPHYLAXIS INR 3.3 FULL CODE Consultants: cardiology Current Inpatient Medications: Current Inpatient Medications Medications (Trade) Dose Ordered Sig/Artemio Route Start Time Stop Time Status Last Admin Dose Admin Miscellaneous Information (Consult Glycemic Management Pharmacy) 1 ea UD PRN N/A 04/28/17 16:07 05/28/17 16:06 Insulin Aspart (novoLOG ASPART) SLIDING SCALE If C... ACHS SC 04/28/17 21:00 05/28/17 20:59 05/02/17 12:58 5 UNITS Glucose (Glucose 40% Gel) 15-30 GRAMS 15 GRAMS... UD PRN PO 04/28/17 16:15 05/28/17 16:14 Glucose (Glucose Chew Tab) 4-8 Tablets 4 Tabl... UD PRN PO 04/28/17 16:15 05/28/17 16:14 05/01/17 04:38 4 TABS Dextrose (Dextrose 50% 50ML Syringe) 25-50ML OF 50% DW IV FOR... UD PRN IV 04/28/17 16:15 05/28/17 16:14 05/01/17 12:30 50 ML Glucagon (Glucagon Inj) 1 mg UD PRN SQ 04/28/17 16:15 05/28/17 16:14 Amitriptyline HCl (Elavil Tab) 50 mg HS PO 04/28/17 21:00 05/28/17 20:59 05/01/17 20:29 50 MG Atorvastatin Calcium (Lipitor Tab) 40 mg HS PO 04/28/17 21:00 05/28/17 20:59 05/01/17 20:29 40 MG Cetirizine HCl (zyrTEC TAB) 10 mg QAM PO 04/29/17 09:00 05/29/17 08:59 05/02/17 10:41 10 MG Epinephrine (Epipen) 0.3 mg UD PRN IM 04/28/17 16:15 05/28/17 16:14 Fentanyl (Duragesic Patch) 50 mcg Q72H TD 04/30/17 11:00 05/14/17 10:59 04/30/17 10:30 50 MCG Furosemide (Lasix Tab) 20 mg DAILY PO 04/29/17 09:00 05/29/17 08:59 Future Hold 05/01/17 13:16 20 MG Gabapentin (Neurontin Tab) 800 mg TID PO 04/28/17 21:00 05/28/17 20:59 05/02/17 15:13 800 MG Levothyroxine Sodium (Synthroid Tab) 50 mcg DAILYBB PO 04/29/17 06:00 05/29/17 05:59 05/02/17 06:09 50 MCG Metoclopramide HCl (Reglan Tab) 5 mg TIDM PO 04/28/17 18:00 05/28/17 17:59 05/02/17 16:50 5 MG Metoprolol Tartrate (Lopressor Tab) 100 mg BID PO 04/28/17 21:00 05/28/17 20:59 05/02/17 10:41 100 MG Multivitamins (Multivitamin Tab) 1 tab QAM PO 04/29/17 09:00 05/29/17 08:59 05/02/17 10:40 1 TAB Olanzapine (Zyprexa Tab) 2.5 mg HS PO 04/28/17 21:00 05/28/17 20:59 05/01/17 20:31 2.5 MG Pantoprazole Sodium (Protonix Tab) 40 mg DAILY PO 04/29/17 09:00 05/29/17 08:59 05/02/17 10:40 40 MG Trazodone HCl (Desyrel Tab) 150 mg HS PO 04/28/17 21:00 05/28/17 20:59 05/01/17 20:30 150 MG Venlafaxine HCl (effeXOR EXTENDED REL CAP) 225 mg QAM PO 04/29/17 09:00 05/29/17 08:59 05/02/17 10:39 225 MG Calcitriol (Rocaltrol Cap) 0.25 mcg MoWeFr@0900 PO 04/30/17 09:00 05/30/17 08:59 05/02/17 10:41 0.25 MCG Nystatin (Mycostatin Susp) 5 ml QID PO 04/28/17 17:00 05/08/17 16:59 05/02/17 16:50 5 ML Ipratropium [place] (Atrovent 0.02% 0.5MG/2.5ML Neb) 0.5 mg Q6R INH 04/28/17 21:00 05/28/17 20:59 05/02/17 14:50 0.5 MG Levalbuterol (Xopenex 1.25MG/ 0.5ML Neb) 1.25 mg Q6R INH 04/28/17 21:00 05/28/17 20:59 05/02/17 14:50 1.25 MG Miscellaneous (Fentanyl Patch Remove & Waste) 1 ea Q3D@1059 N/A 04/30/17 10:59 05/30/17 10:58 04/30/17 10:30 1 EA Miscellaneous Information (Check Fentanyl Patch Placement) 1 ea QS N/A 04/29/17 00:00 05/29/17 00:00 05/02/17 16:51 1 EA Prednisone (PredniSONE TAB) 40 mg DAILY PO 04/29/17 09:00 05/04/17 08:59 05/02/17 10:41 40 MG Oxycodone HCl (Roxicodone Immediate Rel Tab) 10 mg Q6H PRN PO 04/29/17 10:30 05/13/17 10:29 05/02/17 11:10 10 MG Polyethylene (Miralax Powder Packet) 17 gm QAM PO 05/01/17 09:00 05/31/17 08:59 05/02/17 10:40 17 GM Nicotine (Nicoderm Cq 21MG Patch) 1 patch QAM EXT 05/01/17 09:00 05/31/17 08:59 Miscellaneous (Remove Nicoderm Patch) 1 ea HS N/A 04/30/17 21:00 05/30/17 20:59 05/01/17 20:28 1 EA Sodium Chloride 1,000 ml @ 15 mls/hr Q24H ONCE IV 05/02/17 06:00 05/03/17 05:59 05/02/17 06:09 15 MLS/HR Insulin Glargine (Lantus Solostar Pen) 25 units BID SC 05/02/17 21:00 06/01/17 20:59 Acetaminophen (Tylenol Tab) 650 mg Q4H PRN PO 05/02/17 09:30 06/01/17 09:29 Ketorolac Tromethamine (Toradol Tab) 10 mg Q6H PRN PO 05/02/17 09:30 05/07/17 09:29 Warfarin Sodium (Coumadin Tab) 5 mg DAILY@16 PO 05/03/17 16:00 06/02/17 15:59
[2017-05-02 19:14] LABS: BUN/CREATININE RATIO 24.4 (10-20); CALCIUM 8.6 mg/dl (8.5-10.1); CREATININE 1.2 mg/dl (0.60-1.20); POTASSIUM 5.2 mmol/L (3.5-5.1)
[2017-05-02] MEDS ORDERED: INSULIN GLARGINE SOLOSTAR 100 UNITS/ML 3 ML PEN SC SCH (21:00)
[2017-05-02] MEDS: ATORVASTATIN 40 MG TAB PO SCH (21:13)
[2017-05-02] MEDS: AMITRIPTYLINE HCL 50 MG TAB PO SCH (21:13)
[2017-05-02] MEDS: TRAZODONE HCL 50 MG TAB PO SCH (21:14)
[2017-05-02] MEDS: OLANZAPINE 2.5 MG TAB PO SCH (21:15)
[2017-05-03] VITALS (10 sets, daily range): BP systolic 130–149; BP diastolic 74–84; PULSE 78–91; TEMP 36.6–37.4; O2SAT 90–98
[2017-05-03] MEDS: CHECK FENTANYL PATCH PLACEMENT SCH ×3 (00:29→15:58)
[2017-05-03] MEDS: OXYCODONE HCL IR 5 MG TAB (IMMEDIATE RELEASE) PO PRN (00:31)
[2017-05-03] MEDS: LEVALBUTEROL 1.25MG/0.5ML NEB INH SCH ×4 (01:57→14:40)
[2017-05-03] MEDS: IPRATROPIUM BROMIDE NEB SOLN 0.02% 2.5 ML VIAL INH SCH ×4 (01:57→14:40)
[2017-05-03] MEDS: LEVOTHYROXINE 50 MCG TAB PO SCH (06:26)
[2017-05-03] MEDS: GLUCOSE 10 TABS/TUBE PO PRN (06:45)
[2017-05-03 07:12] LABS: HEMATOCRIT 36.8 % (37-47); MEAN CELL VOLUME 97.6 fL (80-100); MEAN CORPUSCULAR HEMOGLOBIN 30.8 pg (25-34); MEAN CORPUSCULAR HGB CONC 31.5 g/dl (32-36); PLATELET COUNT 256 K/uL (130-400); RED BLOOD COUNT 3.77 M/uL (4.2-5.4); WHITE BLOOD COUNT 15.18 K/uL (4.8-10.8)
[2017-05-03 07:22] LABS: INR 1.9 (0.9-1.1); PROTHROMBIN TIME (PATIENT) 20.9 SECONDS (9.0-12.0)
[2017-05-03 07:38] LABS: BUN/CREATININE RATIO 26.2 (10-20); CALCIUM 8.8 mg/dl (8.5-10.1); CREATININE 1.1 mg/dl (0.60-1.20); POTASSIUM 4.5 mmol/L (3.5-5.1)
[2017-05-03] MEDS: CETIRIZINE HCL 10 MG TAB PO SCH (08:26)
[2017-05-03] MEDS: METOCLOPRAMIDE HCL 10 MG TAB PO SCH ×3 (08:27→16:01)
[2017-05-03] MEDS: PANTOprazole SOD 40 MG TAB PO SCH (08:27)
[2017-05-03] MEDS: POLYETHYLENE (MIRALAX) 17 GM PACK PO SCH (08:28)
[2017-05-03] MEDS: VENLAFAXINE HCL XR 75 MG CAPXR PO SCH (08:28)
[2017-05-03] MEDS: NICOTINE 21 MG/24 HR TDSY EXT SCH (08:29)
[2017-05-03] MEDS: MULTIVITAMIN TAB PO SCH (08:30)
[2017-05-03] MEDS: METOPROLOL TARTRATE 100 MG TAB PO SCH (08:31)
[2017-05-03] MEDS: GABAPENTIN 800 MG TAB PO SCH ×2 (08:31→14:22)
[2017-05-03] MEDS: NYSTATIN SUSP 500,000 U/5 ML UDC PO SCH ×3 (08:32→17:00)
[2017-05-03] MEDS: INSULIN ASPART 100 UNITS/ML 3 ML PEN SC SCH ×2 (08:37→12:21)
[2017-05-03] MEDS ORDERED: INSULIN GLARGINE SOLOSTAR 100 UNITS/ML 3 ML PEN SC SCH (09:00)
[2017-05-03] MEDS: FENTANYL PATCH REMOVE & WASTE SCH (10:59)
[2017-05-03] MEDS: FUROSEMIDE 20 MG TAB PO SCH (11:49)
[2017-05-03] MEDS: FENTANYL 50 MCG/HR TDSY TD SCH (11:50)
[2017-05-03] MEDS ORDERED: GUAIFENESIN 200 MG TAB PO ONE (13:44)
[2017-05-03] MEDS ORDERED: GUAIFENESIN 200 MG TAB PO SCH (14:00)
--- NOTE | 2017-05-03 14:58 | Cardiology Follow-Up ---
Subjective General Date of Service: May 03, 2017. Chief Complaint: follow up atrial flutter Pt evaluation today including: conversation w/ patient, physical exam, chart review, lab review, review of studies, review of inpatient medication list History of Present Illness The patient is a 61 year old female seen in follow up. Feels well today. Denies CP or palpitations. No groin soreness or hematoma. Remains in sinus rhythm. Allergies Coded Allergies: BEE STING (Verified Allergy, Severe, SWELLING, 04/20/17) Lisinopril (Verified Allergy, Intermediate, FACE SWELLING, 04/20/17) Potato (Verified Allergy, Intermediate, BBQ chips - facial swelling, ) Metronidazole (Verified Allergy, Mild, FACE SWELLING, 04/20/17) [place] (Verified Allergy, Mild, HIVES, 04/20/17) Alprazolam (Verified Allergy, Unknown, RED FACE, FACE SWELLING, 04/20/17) Lactose (Verified Adverse Reaction, Intermediate, VOMTING DIARRHEA ABDOMINAL PAIN, 04/20/17) Prednisone (Verified Adverse Reaction, Mild, unknown, 04/20/17) Colesevelam (Verified Adverse Reaction, Unknown, unknown, 04/20/17) [place] (Verified Adverse Reaction, Unknown, jitters, 04/20/17) Social History Smoking Status: Heavy Tobacco Smoker Hx Tobacco Use In Past Year?: Yes Hx Alcohol Use - Type And Amou: No Hx Substance Use - Type And Am: Yes (SEE CURRENT E-MAR) Problem List Medical Problems: (1) Acute gastroenteritis Status: Acute (2) Altered mental status Status: Acute (3) Atrial flutter with rapid ventricular response Status: Acute (4) Back pain Status: Acute (5) Bradycardia Status: Acute (6) Bronchitis Status: Acute (7) Bronchitis Status: Acute (8) CAP (community acquired pneumonia) Status: Acute (9) Cellulitis Status: Acute (10) Cervical radiculopathy Status: Acute (11) Chest pain Status: Acute (12) Chest pain of unknown etiology Status: Acute (13) Chest wall pain Status: Acute (14) Chest wall pain Status: Acute (15) CHF exacerbation Status: Acute (16) Chronic right shoulder pain Status: Acute (17) Congestive heart failure Status: Acute (18) Congestive heart failure Status: Acute (19) COPD exacerbation Status: Acute (20) COPD exacerbation Status: Acute (21) COPD exacerbation Status: Acute (22) Cough Status: Acute (23) Dehydration Status: Acute (24) Depressed Status: Acute (25) Diarrhea Status: Acute (26) Diarrhea Status: Acute (27) Diarrhea Status: Acute (28) Diffuse abdominal pain Status: Acute (29) Diffuse abdominal pain Status: Acute (30) Dysuria Status: Acute (31) Erythema of face Status: Acute (32) Fatigue Status: Acute (33) Fluid overload Status: Acute (34) Generalized weakness Status: Acute (35) Headache Status: Acute (36) History of COPD Status: Acute (37) Hyperglycemia Status: Acute (38) Hypoxia Status: Acute (39) Leukocytosis Status: Acute (40) Lower back pain Status: Acute (41) Pelvic cyst Status: Acute (42) PNA (pneumonia) Status: Acute (43) Rash Status: Acute (44) Request for narcotic pain medication Status: Acute (45) Respiratory failure Status: Acute (46) Right fibular fracture Status: Acute (47) Right leg pain Status: Acute (48) Shortness of breath Status: Acute (49) Shortness of breath Status: Acute (50) Tobacco use Status: Acute (51) Urinary tract infection Status: Acute (52) UTI (urinary tract infection) Status: Acute (53) Weakness Status: Acute (54) Wheezing Status: Acute Review of Systems Respiratory: No cough, No wheezing, No shortness of breath, No dyspnea at rest , No hemoptysis Cardiac: No chest pain, No orthopnea, No PND, No edema, No palpitations Physical Exam Vital Signs Last Vital Signs Documentation Date Time Temp Pulse Resp B/P (MAP) Pulse Ox O2 Delivery O2 Flow Rate FiO2 05/03/17 11:57 Nasal Cannula 3.0 BiPAP 05/03/17 11:35 91 18 98 05/03/17 11:21 37.4 130/77 (94) Physical Exam Constitutional: General Apperance: heathly-appearing Level of Distress: NAD Psychiatric: Mental Status: active & alert Head: normocephalic Eyes: EOM: EOMI ENMT: normal ENT inspection, hearing grossly normal Neck: supple, no masses Lungs: Respiratory effort: no dyspnea, good air movement Auscultation: CTA except as noted, no wheezing, no rales/crackles Cardiovascular: Heart Auscultation: RRR, no murmurs, no rubs, no gallops Peripheral Pulses: Bruits: none appreciated Abdomen: Bowel Sounds: normal Inspection & Palpation: soft, no tenderness, guarding & rebound, no masses Musculoskeletal: normal strength (5/5 throughout) Extremities: no cyanosis, no edema, no varicosities, pertinent finding (Right groin soft, no hematoma or ecchymosis. ) Neurologic: Gait & Station: pertinent finding (no focal defitics ) Cranial Nerves: grossly intact Sensation: grossly intact Assessment and Plan Assessment and Plan Imp: 1. Recurrent atrial flutter, RVR s/p flutter ablation 05/02/17. 2. Underlying severe COPD 3. Normal LVEF , echo at [facility] 04/07/17, despite history of cor pulmonale , normal RV size and RVEF noted at time of echo 4. Remote mitral valve repair , due to valve strands, cardioembolic stroke 6. Hyperkalemia - resolved; treated with Kayexalate 05/02/17. Discussion / Plan: Continue metoprolol 100mg BID (for history of SVT) and coumadin for stroke prophylaxis and Lambl's excrescence. Follow up with [facility] clinic for coumadin management. Will sign off. Please call with questions. Laboratory Results Last 24 Hours Test 05/02/17 16:18 05/02/17 17:36 05/02/17 21:26 05/02/17 23:14 Bedside Glucose 194 mg/dl 219 mg/dl 238 mg/dl Sodium Level 136 mmol/L Potassium Level 5.2 mmol/L Chloride Level 100 mmol/L Carbon Dioxide Level 33 mmol/L Anion Gap 3.0 mmol/L Blood Urea Nitrogen 29 mg/dl Creatinine 1.20 mg/dl Est Creatinine Clear Calc Drug Dose 56.6 ml/min Estimated GFR () 56.9 Estimated GFR (Non- 49.1 BUN/Creatinine Ratio 24.4 Random Glucose 227 mg/dl Calcium Level 8.6 mg/dl Test 05/03/17 04:04 05/03/17 06:20 05/03/17 06:40 05/03/17 06:54 Bedside Glucose 132 mg/dl 63 mg/dl 65 mg/dl White Blood Count 15.18 K/uL Red Blood Count 3.77 M/uL Hemoglobin 11.6 g/dL Hematocrit 36.8 % Mean Corpuscular Volume 97.6 fL Mean Corpuscular Hemoglobin 30.8 pg Mean Corpuscular Hemoglobin Concent 31.5 g/dl RDW Standard Deviation 52.1 fL RDW Coefficient of Variation 14.8 % Platelet Count 256 K/uL Mean Platelet Volume 9.0 fL Prothrombin Time 20.9 SECONDS Prothromb Time International Ratio 1.9 Sodium Level 135 mmol/L Potassium Level 4.5 mmol/L Chloride Level 99 mmol/L Carbon Dioxide Level 36 mmol/L Anion Gap 0.0 mmol/L Blood Urea Nitrogen 29 mg/dl Creatinine 1.10 mg/dl Est Creatinine Clear Calc Drug Dose 61.7 ml/min Estimated GFR () 63.2 Estimated GFR (Non- 54.5 BUN/Creatinine Ratio 26.2 Random Glucose 56 mg/dl Calcium Level 8.8 mg/dl Test 05/03/17 07:08 05/03/17 11:34 Bedside Glucose 96 mg/dl 234 mg/dl
--- NOTE | 2017-05-03 15:22 | Pharmacy Progress Note ---
Glycemic Control Progress Note Date of Service May 03, 2017. Scope Glycemic Pharmacist consulted for glycemic control to write orders per [facility] inpatient glycemic control protocol. Objective Accuchecks BSG (last 24hrs): Test 05/02/17 16:18 05/02/17 17:36 05/02/17 21:26 05/02/17 23:14 Bedside Glucose 194 mg/dl (70-90) 219 mg/dl (70-90) 238 mg/dl (70-90) Random Glucose 227 mg/dl (70-99) Test 05/03/17 04:04 05/03/17 06:20 05/03/17 06:40 05/03/17 06:54 Bedside Glucose 132 mg/dl (70-90) 63 mg/dl (70-90) 65 mg/dl (70-90) Random Glucose 56 mg/dl (70-99) Test 05/03/17 07:08 05/03/17 11:34 Bedside Glucose 96 mg/dl (70-90) 234 mg/dl (70-90) HbA1c: Test 04/29/17 07:05 Hemoglobin A1c 9.8 % (4.5-5.6) H Recent Pertinent Medications The patient is currently receiving: * Basal insulin: Lantus 25 units SQ BID * Correctional Insulin: Novolog Correction per scale ACHS Goal Range: Low 110 mg/dL - High 150 mg/dL Correction Factor: 20 mg/dL/unit * Prandial insulin: Per carb ratio of 1 unit per 8 grams CHO consumed Outpatient Anti-Diabetic Meds Lantus 36 units SQ BID (recently decreased from Lantus 40 units BID) Novolog 5 units with largest meal (not taking secondary to hypoglycemia) Assessment & Plan ASSESSMENT: * See progress note from 04/28/17 for more background info, in short: Ms Minaya is a 61 y/o admitted with afib with RVR s/p ablation POD1. During this admission , the patient's insulin requirements have decreased significantly from ~150 units/day to below 100 units/day. * Pt receiving SQ basal bolus insulin regimen for hyperglycemia secondary to baseline DM (outpatient regimen on hold),COPD exacerbation, ablation (POD 1), and currently on prednisone 40 mg PO daily * Patient is currently receiving an average of 60? units of insulin per day * 50 units of basal insulin * 18 units of prandial/correctional insulin * BSGs ranging 65 - 234 mg/dl over the past 24hrs * Changes needed to insulin regimen: * AM Fasting BSG = 65 mg/dl. This is slightly below goal range for the patient. The patient was treated for the low blood sugar with cereal + milk and peanut butter and dominic crackers. It would appear that the patient's true fasting may be below 50 units so Lantus was decreased to Lantus 20 units SQ BID. Another issue may be the correction at bedtime. Novolog correction parameters loosened at bedtime. * Post-prandial BSGs appear to not be well-controlled. The patient's blood sugars increased from breakfast blood sugar of 65 mg/dL to 234 mg/dL at lunch. This was because the patient was most likely over-corrected. Will tighten carbohydrate ratio slightly. HS parameters loosened as above. * Total daily dose = ~60 units. Reduced Lantus and correctional insulin appropriately. PLAN FOR INPATIENT GLYCEMIC CONTROL: * DECREASING Lantus to 20 units SQ BID * Continuing correction factor of 20 mg/dl/unit (loosened to 30 at bedtime) * TIGHTENING carb ratio to 1 unit per 6 grams CHO consumed (loosened to 10 at bedtime) * Continuing goal range of Low 110 mg/dL - High 150 mg/dL RECOMMENDATIONS FOR DISCHARGE: * Dependent on discharge plans for patient * Please note that the plan above was derived based on current level of insulin resistance and hospital stress. These recommendations are appropriate for inpatient admission only. Plan of care upon discharge will need to be reassessed to avoid potential outpatient hypo/hyperglycemia. Thank you.
[2017-05-03] MEDS ORDERED: WARFARIN SOD 5 MG TAB PO SCH (16:00)
[2017-05-03] MEDS ORDERED: INSULIN ASPART 100 UNITS/ML 3 ML PEN SC SCH ×2 (16:15→21:00)
[2017-05-03] MEDS ORDERED: GUAI1TAB68 PO (16:30)
[2017-05-03] MEDS ORDERED: XPNINS1255 INH (16:30)
[2017-05-03] MEDS ORDERED: ATRINS INH (16:30)
--- NOTE | 2017-05-03 16:47 | Discharge Instructions ---
Discharge Instructions Date of Service May 03, 2017. Admission Reason for Admission: Atrial Flutter With Rvr Discharge Discharge Diagnosis / Problem: Atrial flutter RVR, CHRONIC HYPOXIC RESPIRATORY FAILURE/COPD, Hypoglycemia Discharge Goals Goal(s): Decrease discomfort, Improve function, Improve disease control Activity Recommendations Activity Limitations: resume your previous activity (as tolerated) . Instructions / Follow-Up Instructions / Follow-Up Dr. Goins office will call you on Friday to schedule a follow up appointment Follow up with Cardiology between 2 - 3 weeks Follow-up with orthopedic between 4-6 weeks with repeat x-rays AP and lateral right tib-fib and 3 views right foot Continue Weightbearing by using a walker and weightbearing as tolerated in good diabetic shoes. Monitor Blood sugar very closely Bring blood sugar log in your next appointment with your physician Follow a healthy diabetes diet with low carb and limited concentrated sweet intake sweet intake Check BMP within 1 week to monitor renal function and your potassium Check INR on Friday Follow up with the coumadin clinic complete Prednisone taper dose Current Hospital Diet Patient's current hospital diet: AHA Diet (Heart Healthy), Diabetes Type 2 Diet Discharge Diet Recommended Diet: Diabetes Type 2 Diet, Renal Diet Pending Studies Studies pending at discharge: no Laboratory Results Hemoglobin A1c Test 04/29/17 07:05 Range/Units Estimated Average Glucose 235 mg/dl Hemoglobin A1c 9.8 H 4.5-5.6 % Lipid Panel Test 04/21/17 06:21 Range/Units Triglycerides Level 73 0-150 mg/dl Cholesterol Level 131 0-200 mg/dl HDL Cholesterol 69 mg/dl Cholesterol/HDL Ratio 1.9 LDL Cholesterol, Calculated 47 mg/dl Medical Emergencies . Who to Call and When: Medical Emergencies: If at any time you feel your situation is an emergency, please call 911 immediately. . Non-Emergent Contact Non-Emergency issues call your: Primary Care Provider Call Non-Emergent contact if: you have any medication questions . . "Provider Documentation" section prepared by Elise Guillaume. . VTE Core Measure Inpt VTE Proph given/why not?: Warfarin (Coumadin)
[2017-05-03] MEDS ORDERED: PRD20 PO (16:54)
[2017-05-03] MEDS ORDERED: NVLGIPEN SC (16:54)
[2017-05-03] MEDS ORDERED: INSDGIPEN SC (16:54)
--- NOTE | 2017-05-03 18:53 | Progress Note ---
Medicine Progress Note Date & Time of Visit: May 03, 2017 at 18:41. Subjective Pt was seen and examined Sitting in bed comfortable with no distress Pt said that she feels good today she said that she had a big BM yesterday she said that she is ready to go home today she denies any groin tenderness and redness denies any chest pain, palpitation, dizziness and SOB Objective Last 8 Hrs Date Time Temp Pulse Resp B/P (MAP) Pulse Ox O2 Delivery O2 Flow Rate FiO2 05/03/17 16:58 36.6 83 18 96 Nasal Cannula 05/03/17 16:37 83 18 96 Nasal Cannula 3.0 05/03/17 16:30 36.6 85 20 149/78 (101) 96 Nasal Cannula 3.0 05/03/17 11:57 Nasal Cannula 3.0 BiPAP 05/03/17 11:35 91 18 98 Nasal Cannula 4.0 05/03/17 11:21 37.4 84 20 130/77 (94) 90 Nasal Cannula 3.0 Physical Exam: General- No acute distress Head- atraumatic Eyes- PERRL, EOMI ENT- oropharynx clear Neck- supple, no JVD Lungs- Crackles Heart- No murmur Abdomen- normal bowel sounds, soft Extremities-no calf tenderness, No groin hematoma and tenderness Neuro- alert, oriented x 3; PERRL, EOMI Skin- warm & dry Laboratory Results: Last 24 Hours Test 05/02/17 21:26 05/02/17 23:14 05/03/17 04:04 05/03/17 06:20 Bedside Glucose 219 mg/dl 238 mg/dl 132 mg/dl 63 mg/dl Test 05/03/17 06:40 05/03/17 06:54 05/03/17 07:08 05/03/17 11:34 White Blood Count 15.18 K/uL Red Blood Count 3.77 M/uL Hemoglobin 11.6 g/dL Hematocrit 36.8 % Mean Corpuscular Volume 97.6 fL Mean Corpuscular Hemoglobin 30.8 pg Mean Corpuscular Hemoglobin Concent 31.5 g/dl RDW Standard Deviation 52.1 fL RDW Coefficient of Variation 14.8 % Platelet Count 256 K/uL Mean Platelet Volume 9.0 fL Prothrombin Time 20.9 SECONDS Prothromb Time International Ratio 1.9 Sodium Level 135 mmol/L Potassium Level 4.5 mmol/L Chloride Level 99 mmol/L Carbon Dioxide Level 36 mmol/L Anion Gap 0.0 mmol/L Blood Urea Nitrogen 29 mg/dl Creatinine 1.10 mg/dl Est Creatinine Clear Calc Drug Dose 61.7 ml/min Estimated GFR () 63.2 Estimated GFR (Non- 54.5 BUN/Creatinine Ratio 26.2 Random Glucose 56 mg/dl Calcium Level 8.8 mg/dl Bedside Glucose 65 mg/dl 96 mg/dl 234 mg/dl Test 05/03/17 16:54 Bedside Glucose 89 mg/dl Assessment & Plan ATRIAL FLUTTER WITH RVR Sent from cardiology clinic with HR in 130s; failed recent outpatient titration of metoprolol Rate is controlled Received IV lopressor and IV cardizem On cardizem drip IV amiodarone was given continue metoprolol 100mg BID Not a good candidate for antiarrhythmic med due to QT prolongation cardiac marker negative cardiology on board INR 3.1 today heparin drip discontinue HUSSEIN done today showed no left atrial appendage thrombus Coumadin tonight dose on hold Consider AFL ablation as plan tomorrow NPO after midnight 05/03 Ablation done yesterday that was successful remain on NSR Rate control Continue metoprolol 100mg BID Follow up with the Coumadin clinic Follow up with cardiology btw 2 to 3 weeks Stable HYPOGLYCEMIA Presented with BSG in 40s, symptomatic Reported hyper and hypoglycemia at home Novolog sliding scale coverage pharmacy consulted for glycemic control 05/01 BS was low this morning because pt was NPO for the HUSSEIN received dextrose Lantus has been decreased since it will be NPO after midnight will decrease night dose lantus by 50% for tonight Hold AM dose lantus Continue monitor BS 05/03 BS has been fluctuated case discussed with pharmacist recommended to discharge pt on a lower dose on Lantus Lantus decreased to 16 unit BID Will do novolog 5 unit subq for the 2 largest meal (LUNCH and Dinner) Advised pt to continue monitor BS and bring BS log to her next appointment Follow up a healthy DM diet HYPERKALEMIA received calcium gluconate, sodium, IV insulin, dextrose and Kayexalate K 5.5 today Kayexalate given continue monitor BMP 05/03 Received Kayexalate K corrected K supplement discontinue continue monitor electrolytes CHRONIC HYPOXIC RESPIRATORY FAILURE / COPD Continue prednisone taper dose Continue supplemental O2 and Duoneb treatment Clinically improved DARIUS BIPAP HS while hospitalized; needs outpatient sleep study THRUSH Nystatin ordered CHRONIC DIASTOLIC CHF Compensated clinically Continue home dose of Lasix Monitor BMP for her renal function HYPERTENSION Stable continue home meds HYPOTHYROIDISM Continue levothyroxine CHRONIC PAIN Continue Fentanyl patch RECENT RLE FRACTURE Ortho was consulted recommended to continue conservative management Right foot xray showed decreased conspicuity of the previously noted fracture through the base of the second metatarsal. No new malalignment. Right Tibia/Fibula xray showed no change in the alignment of the comminuted fracture involving the mid fibular shaft Weightbearing using a walker and weightbearing as tolerated in good diabetic shoes. Follow-up in 4-6 weeks with repeat x-rays AP and lateral right tib-fib and 3 views right foot BIPOLAR DISORDER Continue home medications DVT PROPHYLAXIS INR 1.9 FULL CODE Consultants: cardiology Ortho Current Inpatient Medications: Current Inpatient Medications Medications (Trade) Dose Ordered Sig/Artemio Route Start Time Stop Time Status Last Admin Dose Admin Miscellaneous Information (Consult Glycemic Management Pharmacy) 1 ea UD PRN N/A 04/28/17 16:07 05/28/17 16:06 Glucose (Glucose 40% Gel) 15-30 GRAMS 15 GRAMS... UD PRN PO 04/28/17 16:15 05/28/17 16:14 Glucose (Glucose Chew Tab) 4-8 Tablets 4 Tabl... UD PRN PO 04/28/17 16:15 05/28/17 16:14 05/03/17 06:45 4 TABS Dextrose (Dextrose 50% 50ML Syringe) 25-50ML OF 50% DW IV FOR... UD PRN IV 04/28/17 16:15 05/28/17 16:14 05/01/17 12:30 50 ML Glucagon (Glucagon Inj) 1 mg UD PRN SQ 04/28/17 16:15 05/28/17 16:14 Amitriptyline HCl (Elavil Tab) 50 mg HS PO 04/28/17 21:00 05/28/17 20:59 05/02/17 21:13 50 MG Atorvastatin Calcium (Lipitor Tab) 40 mg HS PO 04/28/17 21:00 05/28/17 20:59 05/02/17 21:13 40 MG Cetirizine HCl (zyrTEC TAB) 10 mg QAM PO 04/29/17 09:00 05/29/17 08:59 05/03/17 08:26 10 MG Epinephrine (Epipen) 0.3 mg UD PRN IM 04/28/17 16:15 05/28/17 16:14 Fentanyl (Duragesic Patch) 50 mcg Q72H TD 04/30/17 11:00 05/14/17 10:59 05/03/17 11:50 50 MCG Furosemide (Lasix Tab) 20 mg DAILY PO 04/29/17 09:00 05/29/17 08:59 Future hold 05/03/17 11:49 20 MG Gabapentin (Neurontin Tab) 800 mg TID PO 04/28/17 21:00 05/28/17 20:59 05/03/17 14:22 800 MG Levothyroxine Sodium (Synthroid Tab) 50 mcg DAILYBB PO 04/29/17 06:00 05/29/17 05:59 05/03/17 06:26 50 MCG Metoclopramide HCl (Reglan Tab) 5 mg TIDM PO 04/28/17 18:00 05/28/17 17:59 05/03/17 16:01 5 MG Metoprolol Tartrate (Lopressor Tab) 100 mg BID PO 04/28/17 21:00 05/28/17 20:59 05/03/17 08:31 100 MG Multivitamins (Multivitamin Tab) 1 tab QAM PO 04/29/17 09:00 05/29/17 08:59 05/03/17 08:30 1 TAB Olanzapine (Zyprexa Tab) 2.5 mg HS PO 04/28/17 21:00 05/28/17 20:59 05/02/17 21:15 2.5 MG Pantoprazole Sodium (Protonix Tab) 40 mg DAILY PO 04/29/17 09:00 05/29/17 08:59 05/03/17 08:27 40 MG Trazodone HCl (Desyrel Tab) 150 mg HS PO 04/28/17 21:00 05/28/17 20:59 05/02/17 21:14 150 MG Venlafaxine HCl (effeXOR EXTENDED REL CAP) 225 mg QAM PO 04/29/17 09:00 05/29/17 08:59 05/03/17 08:28 225 MG Calcitriol (Rocaltrol Cap) 0.25 mcg MoWeFr@0900 PO 04/30/17 09:00 05/30/17 08:59 05/02/17 10:41 0.25 MCG Nystatin (Mycostatin Susp) 5 ml QID PO 04/28/17 17:00 05/08/17 16:59 05/03/17 12:22 5 ML Ipratropium [place] (Atrovent 0.02% 0.5MG/2.5ML Neb) 0.5 mg Q6R INH 04/28/17 21:00 05/28/17 20:59 05/03/17 14:40 0.5 MG Levalbuterol (Xopenex 1.25MG/ 0.5ML Neb) 1.25 mg Q6R INH 04/28/17 21:00 05/28/17 20:59 05/03/17 14:40 1.25 MG Miscellaneous (Fentanyl Patch Remove & Waste) 1 ea Q3D@1059 N/A 04/30/17 10:59 05/30/17 10:58 05/03/17 10:59 1 EA Miscellaneous Information (Check Fentanyl Patch Placement) 1 ea QS N/A 04/29/17 00:00 05/29/17 00:00 05/03/17 15:58 1 EA Prednisone (PredniSONE TAB) 40 mg DAILY PO 04/29/17 09:00 05/04/17 08:59 05/03/17 08:27 40 MG Oxycodone HCl (Roxicodone Immediate Rel Tab) 10 mg Q6H PRN PO 04/29/17 10:30 05/13/17 10:29 05/03/17 00:31 10 MG Polyethylene (Miralax Powder Packet) 17 gm QAM PO 05/01/17 09:00 05/31/17 08:59 05/02/17 10:40 17 GM Nicotine (Nicoderm Cq 21MG Patch) 1 patch QAM EXT 05/01/17 09:00 05/31/17 08:59 Miscellaneous (Remove Nicoderm Patch) 1 ea HS N/A 04/30/17 21:00 05/30/17 20:59 05/01/17 20:28 1 EA Acetaminophen (Tylenol Tab) 650 mg Q4H PRN PO 05/02/17 09:30 06/01/17 09:29 Ketorolac Tromethamine (Toradol Tab) 10 mg Q6H PRN PO 05/02/17 09:30 05/07/17 09:29 05/02/17 23:23 10 MG Warfarin Sodium (Coumadin Tab) 5 mg DAILY@16 PO 05/03/17 16:00 06/02/17 15:59 05/03/17 15:59 5 MG Insulin Glargine (Lantus Solostar Pen) 20 units BID SC 05/03/17 09:00 06/02/17 08:59 05/03/17 08:38 20 UNITS Guaifenesin (Organidin Nr Tab) 200 mg Q8H PO 05/03/17 14:00 06/02/17 13:59 Insulin Aspart (novoLOG ASPART) SLIDING SCALE If C... AC SC 05/03/17 16:15 06/02/17 16:14 Insulin Aspart (novoLOG ASPART) SLIDING SCALE HS SC 05/03/17 21:00 06/02/17 20:59
[2017-05-05] MEDS ORDERED: LEVO50TA PO (13:11)
--- NOTE | 2017-05-05 18:30 | Discharge Summary ---
Discharge Summary Date of Service May 05, 2017. Discharge Summary Admission Date: Apr 28, 2017 at 15:42 Discharge Date: May 03, 2017 Discharge Disposition: Home Principal Diagnosis: ATRIAL FLUTTER WITH RVR Secondary Diagnoses/Problems: HYPOGLYCEMIA Hyperkalemia CHRONIC HYPOXIC RESPIRATORY FAILURE / COPD DARIUS Diastolic Heart Failure RECENT RLE FRACTURE Bipolar Dx HTN Chronic Pain Hypothyroidism Procedures: HUSSEIN Left atrial flutter ablation Consultations: cardiology Ortho Medication Reconciliation New Medications: Guaifenesin (Organ-I Nr) 200 Mg Tab 200 MG PO Q8H PRN for Cough for 7 Days, #21 TAB Prednisone (Prednisone) 20 Mg Tab 20 MG PO UD for 6 Days, TAB take 20mg for 3 days, then 10mg for 3 days and stop Continued Medications: Amitriptyline HCl (Amitriptyline HCl) 50 Mg Tab 50 MG PO HS Amlodipine Besylate (Amlodipine Besylate) 10 Mg Tab 10 MG PO QAM Atorvastatin (Atorvastatin Calcium) 40 Mg Tab 40 MG PO HS Calcitriol (Calcitriol) 0.5 Mcg Cap 0.5 MCG PO 3XWK TAKE THIS MEDICATION EVERY FRIDAY,FRIDAY AND FRIDAY Cetirizine (Zyrtec) 10 Mg Tab 10 MG PO QAM, TAB Epinephrine (Epipen) 0.3 Mg/0.3 Ml Inj 0.3 MG IM UD PRN for ALLERGIC REACTION Fluticasone Prop/Salmeterol (Advair Diskus 250/50 60 Dose) 1 Ea Aerp 1 PUFF INH BID Gabapentin (Gabapentin) 800 Mg Tab 800 MG PO TID Home O2 Therapy (Oxygen) Gas 3 LITERS NA CONTINOUS Levothyroxine Sodium (Synthroid) 50 Mcg Tab 50 MCG PO QAM, TAB Lorazepam (Lorazepam) 0.5 Mg Tab 0.5 MG PO UD PRN for Anxiety/Agitation, TAB Metoclopramide Hcl (Reglan) 10 Mg Tab 5 MG PO TIDM, TAB Metoprolol Tartrate (Lopressor) (Lopressor) 100 Mg Tab 100 MG PO BID, TAB Multiple Vitamin (Multivitamin) 1 Tab Tab 1 TAB PO QAM, TAB Olanzapine (Olanzapine) 2.5 Mg Tab 2.5 MG PO HS Tiotropium [place] (Spiriva Handihaler) 30 Puff/540 Mcg Aerp 1 CAP INH DAILY, INHALER Trazodone Hcl (Trazodone) 50 Mg Tab 150 MG PO HS, TAB Venlafaxine Hcl (Effexor Extended Rel) 75 Mg Capcr 225 MG PO QAM Warfarin Sodium (Warfarin Sodium) 5 Mg Tab 5 MG PO 2XWK, TAB TAKE 5 MG EVERY FRIDAY AND FRIDAY OR OTHERWISE DIRECTED TO TAKE BY ANTICOAGULATION CLINIC/MD Warfarin Sodium (Warfarin Sodium) 5 Mg Tab 7.5 MG PO 5XWK, TAB TAKE 7.5 MG EVERY FRIDAY,FRIDAY,FRIDAY,FRIDAY AND FRIDAY OR OTHERWISE DIRECTED TO TAKE BY ANTICOAGULATION CLINIC/MD Discontinued Medications: Albuterol Sulf (Proventil 0.083% 2.5MG/3ML) 2.5 Mg/3 Ml Nebu 2.5 MG INH Q6H PRN for Wheezing, EA Potassium Chloride Microencaps (Potassium Chloride Cr) 10 Meq Tab 10 MEQ PO DAILY for 30 Days, #30 TAB Admission Information HPI (per Admitting provider): This is a 61 year old female with PMH of atrial flutter on Coumadin, history of mitral valve repair, severe COPD with chronic respiratory failure on 2 liters NC continuous, DARIUS not currently using CPAP, DM type 2, HL, obesity, and other problems listed below who was sent to the ED from cardiology clinic for atrial flutter with RVR. Patient was recently hospitalized at [facility] for acute on chronic hypoxic respiratory failure due to COPD exacerbation. She was discharged on 04/24/2017 on prednisone and doxycycline. Was seen in follow up by Javan Maravilla PA-C on 04/25/17 at which time she was noted to be tachycardic and metoprolol tartrate was increased from 75 mg BID to 100 mg BID. She was re- evaluated today by Javan Maravilla and continued with elevated HR in 130s, was noted to be hypoglycemic to 40s this am, and was sent to ER. While in the ER patient was noted to be in atrial flutter rate 130s. She was treated with IV Lopressor 5 mg and IV Cardizem 20 mg without improvement. Blood sugar was 40s in ER and she was given dextrose with improvement. Currently she feels asymptomatic. Had palpitations at home. She reported both high and low blood sugars since discharge. She did eat breakfast today. Has experienced fever up to 102 at home and chills sometime after discharge, but is unclear on the timeline. She reports chronic SOB at rest and BREAUX. Has had intermittent nausea and abdominal pain across the lower quadrants, which resolved. Has noted urinary frequency and dysuria. Has been using ambulatory boot on her RLE after sustaining a fracture approximately 8 weeks ago. Has had sore throat and left ear pain. Denies any chest pain, cough, increasing LE edema, diarrhea. Physical Exam (per Admitting): General Appearance: no apparent distress, + obese, + pertinent finding ( obese 61 year old female, appears comfortable) Head: normocephalic, atraumatic Eyes: normal inspection, PERRL, EOMI, sclerae normal ENT: hearing grossly normal, pharynx normal (white patches in posterior pharynx ), + pertinent finding (L TM occluded by cerumen) Neck: supple, no JVD, trachea midline Respiratory/Chest: no respiratory distress, no accessory muscle use, + wheezing (mild), + pertinent finding (saturating well on 2 liters NC) Cardiovascular: no murmur, + tachycardia (rate 130s) Abdomen/GI: normal bowel sounds, non tender, soft Extremities/Musculoskelatal: no calf tenderness, no pedal edema, + pertinent finding (RLE is wrapped, bruising noted right toes) Neurologic/Psych: alert, normal mood/affect, oriented x 3 Skin: normal color, warm/dry Hospital Course ATRIAL FLUTTER WITH RVR Sent from cardiology clinic with HR in 130s; failed recent outpatient titration of metoprolol Rate is controlled Received IV lopressor and IV cardizem On cardizem drip IV amiodarone was given continue metoprolol 100mg BID Not a good candidate for antiarrhythmic med due to QT prolongation cardiac marker negative cardiology on board INR 3.1 today heparin drip discontinue HUSSEIN done today showed no left atrial appendage thrombus Coumadin tonight dose on hold Consider AFL ablation as plan tomorrow NPO after midnight 05/03 Ablation done yesterday that was successful remain on NSR Rate control Continue metoprolol 100mg BID Follow up with the Coumadin clinic Follow up with cardiology btw 2 to 3 weeks Stable HYPOGLYCEMIA Presented with BSG in 40s, symptomatic Reported hyper and hypoglycemia at home Novolog sliding scale coverage pharmacy consulted for glycemic control 05/01 BS was low this morning because pt was NPO for the HUSSEIN received dextrose Lantus has been decreased since it will be NPO after midnight will decrease night dose lantus by 50% for tonight Hold AM dose lantus Continue monitor BS 05/03 BS has been fluctuated case discussed with pharmacist recommended to discharge pt on a lower dose on Lantus Lantus decreased to 16 unit BID Will do novolog 5 unit subq for the 2 largest meal (LUNCH and Dinner) Advised pt to continue monitor BS and bring BS log to her next appointment Follow up a healthy DM diet HYPERKALEMIA received calcium gluconate, sodium, IV insulin, dextrose and Kayexalate K 5.5 today Kayexalate given continue monitor BMP 05/03 Received Kayexalate K corrected K supplement discontinue continue monitor electrolytes CHRONIC HYPOXIC RESPIRATORY FAILURE / COPD Continue prednisone taper dose Continue supplemental O2 and Duoneb treatment Clinically improved DARIUS BIPAP HS while hospitalized; needs outpatient sleep study THRUSH Nystatin ordered CHRONIC DIASTOLIC CHF Compensated clinically Continue home dose of Lasix Monitor BMP for her renal function HYPERTENSION Stable continue home meds HYPOTHYROIDISM Continue levothyroxine CHRONIC PAIN Continue Fentanyl patch RECENT RLE FRACTURE Ortho was consulted recommended to continue conservative management Right foot xray showed decreased conspicuity of the previously noted fracture through the base of the second metatarsal. No new malalignment. Right Tibia/Fibula xray showed no change in the alignment of the comminuted fracture involving the mid fibular shaft Weightbearing using a walker and weightbearing as tolerated in good diabetic shoes. Follow-up in 4-6 weeks with repeat x-rays AP and lateral right tib-fib and 3 views right foot BIPOLAR DISORDER Continue home medications DVT PROPHYLAXIS INR 1.9 FULL CODE Total time spent on discharge = 35 minutes This includes examination of the patient, discharge planning, medication reconciliation, and communication with other providers. Discharge Instructions Discharge Instructions Date of Service May 03, 2017. Admission Reason for Admission: Atrial Flutter With Rvr Discharge Discharge Diagnosis / Problem: Atrial flutter RVR, CHRONIC HYPOXIC RESPIRATORY FAILURE/COPD, Hypoglycemia Discharge Goals Goal(s): Decrease discomfort, Improve function, Improve disease control Activity Recommendations Activity Limitations: resume your previous activity (as tolerated) . Instructions / Follow-Up Instructions / Follow-Up Dr. Goins office will call you on Friday to schedule a follow up appointment Follow up with Cardiology between 2 - 3 weeks Follow-up with orthopedic between 4-6 weeks with repeat x-rays AP and lateral right tib-fib and 3 views right foot Continue Weightbearing by using a walker and weightbearing as tolerated in good diabetic shoes. Monitor Blood sugar very closely Bring blood sugar log in your next appointment with your physician Follow a healthy diabetes diet with low carb and limited concentrated sweet intake sweet intake Check BMP within 1 week to monitor renal function and your potassium Check INR on Friday Follow up with the coumadin clinic complete Prednisone taper dose Current Hospital Diet Patient's current hospital diet: AHA Diet (Heart Healthy), Diabetes Type 2 Diet Discharge Diet Recommended Diet: Diabetes Type 2 Diet, Renal Diet Pending Studies Studies pending at discharge: no Laboratory Results Hemoglobin A1c Test 04/29/17 07:05 Range/Units Estimated Average Glucose 235 mg/dl Hemoglobin A1c 9.8 H 4.5-5.6 % Lipid Panel Test 04/21/17 06:21 Range/Units Triglycerides Level 73 0-150 mg/dl Cholesterol Level 131 0-200 mg/dl HDL Cholesterol 69 mg/dl Cholesterol/HDL Ratio 1.9 LDL Cholesterol, Calculated 47 mg/dl Medical Emergencies . Who to Call and When: Medical Emergencies: If at any time you feel your situation is an emergency, please call 911 immediately. . Non-Emergent Contact Non-Emergency issues call your: Primary Care Provider Call Non-Emergent contact if: you have any medication questions . . "Provider Documentation" section prepared by Elise Guillaume. . VTE Core Measure Inpt VTE Proph given/why not?: Warfarin (Coumadin) Additional Copies To Manoj Goins D.O.
== END 2017-05-03 18:30 | disposition home health service (06) | DRG 274 ==
LOC: EDBD 12:55 → C.EDA 12:57 → C.2T 15:42 → ENRESERV 16:01
PROVIDERS: ADMIT Hospitalist; ATTEND Internal Medicine
PROC: B246ZZ4 Ultrasonography of Right and Left Heart, Transesophageal (ICD-10-PCS; principal; 2017-05-01 09:49)
PROC: 02583ZZ Destruction of Conduction Mechanism, Percutaneous Approach (ICD-10-PCS; 2017-05-02)
DX: I48.92 Unspecified atrial flutter (principal); J96.11 Chronic respiratory failure with hypoxia; B37.0 Candidal stomatitis; I50.32 Chronic diastolic (congestive) heart failure; I13.0 Hypertensive heart and chronic kidney disease with heart failure and stage 1 through stage 4 chronic kidney disease, or unspecified chronic kidney disease; J44.9 Chronic obstructive pulmonary disease, unspecified; I27.81 Cor pulmonale (chronic); K21.9 Gastro-esophageal reflux disease without esophagitis; E87.5 Hyperkalemia; E03.9 Hypothyroidism, unspecified; F17.200 Nicotine dependence, unspecified, uncomplicated; N18.3 Chronic kidney disease, stage 3 (moderate); E11.22 Type 2 diabetes mellitus with diabetic chronic kidney disease; E11.43 Type 2 diabetes mellitus with diabetic autonomic (poly)neuropathy; E11.649 Type 2 diabetes mellitus with hypoglycemia without coma; G47.33 Obstructive sleep apnea (adult) (pediatric); F31.9 Bipolar disorder, unspecified; G89.29 Other chronic pain; E66.9 Obesity, unspecified; E78.5 Hyperlipidemia, unspecified; Z79.01 Long term (current) use of anticoagulants; Z79.4 Long term (current) use of insulin; Z79.899 Other long term (current) drug therapy; Z99.81 Dependence on supplemental oxygen; Z83.3 Family history of diabetes mellitus; Z68.37 Body mass index [BMI] 37.0-37.9, adult; S82.454D Nondisplaced comminuted fracture of shaft of right fibula, subsequent encounter for closed fracture with routine healing; S92.324D Nondisplaced fracture of second metatarsal bone, right foot, subsequent encounter for fracture with routine healing; W19.XXXD Unspecified fall, subsequent encounter

== ENCOUNTER 2017-05-05 15:02 | Inpatient (IN) | payer OTHER ==
[~2017-05-05] VITALS: Ht 162.6 cm; Wt 91.2 kg
[~2017-05-05 15:02] MED LIST changes: -ALBINS/ INH; +ATRINS INH; -DXY100 PO; +GUAI1TAB68 PO; +LEVO50TA PO; -METO50TA16 PO; -POTA10TA79 PO; +XPNINS1255 INH
[2017-05-05 15:52] LABS: BASO % 0.1 %; BASO ABS # 0.01 K/uL (0-0.2); COMPLETE YES; EOS % 0.5 %; HEMATOCRIT 33.6 % (37-47); IG% 0.7 %; LYMPH % 11.8 %; LYMPH ABS # 1.24 K/uL (1.2-3.4); MEAN CELL VOLUME 95.5 fL (80-100); MEAN CORPUSCULAR HEMOGLOBIN 31.5 pg (25-34); MEAN PLATELET VOLUME 8.7 fL (7.4-10.4); MONO % 4.8 %; NEUT % 82.1 %; PLATELET COUNT 264 K/uL (130-400); RED BLOOD COUNT 3.52 M/uL (4.2-5.4); WHITE BLOOD COUNT 10.48 K/uL (4.8-10.8)
[2017-05-05 15:57] LABS: URINE APPEARANCE CLEAR (CLEAR); URINE BILIRUBIN NEG (NEG); URINE COLOR YELLOW; URINE EPITHELIAL CELL AUTO 0-5 /lpf (0-5); URINE NITRITE NEG (NEG); URINE SPECIFIC GRAVITY 1.008 (1.000-1.030); UROBILINOGEN NEG (NEG); ZZUR CULT IF INDIC CLEAN CATCH NO
[2017-05-05 15:59] LABS: MANUAL MICROSCOPIC REQUIRED? NO; REVIEW REQ? NO
[2017-05-05 16:04] LABS: INR 2.8 (0.9-1.1); PARTIAL THROMBOPLASTIN RATIO 1.4; PROTHROMBIN TIME (PATIENT) 30.8 SECONDS (9.0-12.0)
[2017-05-05] MEDS ORDERED: ATV5X PO (16:08)
[2017-05-05] MEDS ORDERED: METO1TAB55 PO (16:08)
[2017-05-05] MEDS ORDERED: METO100T14 PO (16:08)
[2017-05-05] MEDS ORDERED: TRAZ50TA35 PO (16:08)
--- NOTE | 2017-05-05 16:14 | DIAGNOSTIC IMAGING REPORT ---
SINGLE VIEW CHEST CLINICAL HISTORY: Dyspnea. Atypical chest pain. FINDINGS: An AP, portable, upright chest radiograph is compared to study dated 05/01/2017. Correlation is made with chest CT dated 07/04/1715. The examination is degraded by portable technique and patient rotation. The heart is enlarged and there is atherosclerotic calcification of the thoracic ureter. There is evidence of previous mitral valve surgery. There is pulmonary vascular congestion and interstitial edema. No airspace consolidation or large pleural effusion is identified. Emphysema and chronic interstitial thickening are similar to previous. 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 The skeletal structures are osteopenic. The bony thorax is grossly intact. Surgical clips project over the right upper chest. IMPRESSION: 1. Cardiomegaly with evidence of congestive failure and interstitial edema. 2. Emphysema. No airspace consolidation or large pleural effusion is identified. 3. Herniation of the right upper lung is again noted and unchanged from prior studies. Electronically signed by: Jame Batres M.D. 05/05/2017 4:13 PM Dictated Date/Time: 05/05/2017 4:11 PM
[2017-05-05] MEDS ORDERED: ONDANSETRON INJ 2 MG/ML 2 ML VIAL IV STA (16:19)
[2017-05-05 16:27] LABS: CREATININE 1.1 mg/dl (0.60-1.20)
--- NOTE | 2017-05-05 16:28 | EMERGENCY ROOM VISIT NOTE ---
History Report prepared by Kittyibjaswinder: Kasey Olivarez Under the Supervision of: Dr. Jay Jay Cantu M.D. First contact with patient: 15:58 Chief Complaint: SHORTNESS OF BREATH Stated Complaint: BILATERAL FOOT PAIN Nursing Triage Summary: Pt arrived via EMS, pt c/o swelling in her legs, and "My chest hurts from breathing because of the swelling in my legs". Wears O2 3L NC Hx CHF History of Present Illness The patient is a 61 year old white female with a past medical history of CHF, a- fib, HTN and DM who presents to the ED with a cc of shortness of breath beginning yesterday. Positive fevers, chills, diaphoresis, nausea, "sharp" chest pain and swelling in her bilateral legs. Negative vomiting. She wears 3L of O2 NC every day. Exertion worsens her shortness of breath. Her chest pain started yesterday and is persistent. The patient does take 20 mg of Lasix daily. She also takes daily Coumadin for a history of atrial fibrillation and blood clots. She was recently treated here in the hospital and notes she just returned home this past Friday, 2 days ago. She was cardioverted while in the hospital. Source of History: patient Onset: yesterday Position: chest Quality: other (shortness of breath) Timing: other (persistent) Modifying Factors (Worsening): exertion Associated Symptoms: + fevers, + chills, + diaphoresis, + chest pain, + nausea, No vomiting Review of Systems See HPI for pertinent positives and negatives. A total of ten systems were reviewed and were otherwise negative. Past Medical & Surgical Medical Problems: (1) Acute electrocardiogram changes (2) Asthma (3) Atrial fibrillation (4) Bipolar disorder (5) C. difficile colitis (6) Chronic abdominal pain (7) Chronic cor pulmonale (8) Chronic pain (9) Chronic respiratory failure (10) COPD with exacerbation (11) COPD, severe (12) Cor pulmonale (chronic) (13) Depression (14) DM type 2 (diabetes mellitus, type 2) (15) DVT (deep venous thrombosis) (16) Gastroparesis (17) GERD (gastroesophageal reflux disease) (18) History of ear infection (19) HTN (hypertension) (20) Hypokalemia (21) Hypothyroidism (22) [place] toxicity (23) DARIUS on CPAP (24) Osteoarthritis (25) PAF (paroxysmal atrial fibrillation) Surgical Problems: (1) H/O: hysterectomy (2) Hx of appendectomy (3) Hx of cholecystectomy (4) Hx of lumpectomy (5) Hx of mitral valve repair (6) Hx of tubal ligation (7) Hx of umbilical hernia repair Family History Diabetes mellitus MOTHER FH: Crohn's disease SISTER Hypertension MOTHER Social History Smoking Status: Current Every Day Smoker Alcohol Use: none Drug Use: none Marital Status: Housing Status: lives with significant other Occupation Status: disabled Current/Historical Medications Scheduled Amitriptyline HCl (Amitriptyline HCl), 50 MG PO HS Amlodipine Besylate (Amlodipine Besylate), 10 MG PO QAM Atorvastatin (Atorvastatin Calcium), 40 MG PO HS Calcitriol (Calcitriol), 0.5 MCG PO 3XWK Cetirizine (Zyrtec), 10 MG PO QAM Fluticasone Prop/Salmeterol (Advair Diskus 250/50 60 Dose), 1 PUFF INH BID Furosemide (Furosemide), 20 MG PO DAILY Gabapentin (Gabapentin), 800 MG PO TID Home O2 Therapy (Oxygen), 3 LITERS NA CONTINOUS Insulin Aspart (Novolog Flexpen), 5 UNITS SC UD Insulin Glargine (Lantus Solostar), 16 UNITS SC BID Levothyroxine Sodium (Synthroid), 50 MCG PO QAM Metoclopramide Hcl (Reglan), 5 MG PO TIDM Metoprolol Tartrate (Lopressor) (Lopressor), 100 MG PO BID Multiple Vitamin (Multivitamin), 1 TAB PO QAM Olanzapine (Olanzapine), 2.5 MG PO HS Pantoprazole (Protonix), 40 MG PO DAILY Prednisone (Prednisone), 20 MG PO UD Tiotropium [place] (Spiriva Handihaler), 1 CAP INH DAILY Trazodone Hcl (Trazodone), 150 MG PO HS Venlafaxine Hcl (Effexor Extended Rel), 225 MG PO QAM Warfarin Sodium (Warfarin Sodium), 5 MG PO 2XWK Warfarin Sodium (Warfarin Sodium), 7.5 MG PO 5XWK Scheduled PRN Epinephrine (Epipen), 0.3 MG IM UD PRN for ALLERGIC REACTION Guaifenesin (Organ-I Nr), 200 MG PO Q8H PRN for Cough Ipratropium [place] (Ipratropium [place]), 1 VIAL NEB Q6H PRN for Shortness of Breath Levalbuterol Hcl (Levalbuterol Hcl), 1.25 MG NEB Q6H PRN for SOB/Wheezing Lorazepam (Lorazepam), 0.5 MG PO UD PRN for Anxiety/Agitation Allergies Coded Allergies: BEE STING (Verified Allergy, Severe, SWELLING, 04/20/17) Lisinopril (Verified Allergy, Intermediate, FACE SWELLING, 04/20/17) Potato (Verified Allergy, Intermediate, BBQ chips - facial swelling, ) Metronidazole (Verified Allergy, Mild, FACE SWELLING, 04/20/17) [place] (Verified Allergy, Mild, HIVES, 04/20/17) Alprazolam (Verified Allergy, Unknown, RED FACE, FACE SWELLING, 04/20/17) Lactose (Verified Adverse Reaction, Intermediate, VOMTING DIARRHEA ABDOMINAL PAIN, 04/20/17) Prednisone (Verified Adverse Reaction, Mild, unknown, 04/20/17) Colesevelam (Verified Adverse Reaction, Unknown, unknown, 04/20/17) [place] (Verified Adverse Reaction, Unknown, jitters, 04/20/17) Physical Exam Vital Signs Date Time Temp Pulse Resp B/P (MAP) Pulse Ox O2 Delivery O2 Flow Rate FiO2 05/05/17 18:22 66 18 112/67 98 Room Air 05/05/17 15:50 99 Nasal Cannula 3.0 05/05/17 15:50 77 18 99 Nasal Cannula 3.0 05/05/17 15:17 97 Nasal Cannula 3.0 05/05/17 15:06 37.0 93 19 154/73 98 Nasal Cannula 3.0 Physical Exam GENERAL: Awake, alert, well-appearing, NAD, NC in place. HENT: Normocephalic, atraumatic. EYES: Normal conjunctiva. Sclera non-icteric. NECK: Supple. No nuchal rigidity. FROM. RESPIRATORY: Sonorous breath sounds bilaterally, bibasilar crackles, no rhonchi , wheezing, CARDIAC: RRR, no MRG ABDOMEN: Soft, mild epigastric tenderness to palpation, BS+ MSK: No chest wall TTP, 3+ bilateral pitting edema in LE, no calf pain NEURO: GCS 15, CN 2-12 intact, moves all 4s on command SKIN: No rash or jaundice noted. Medical Decision & Procedures ER Provider Diagnostic Interpretation: Radiology results as stated below per my review and radiologist interpretation: SINGLE VIEW CHEST CLINICAL HISTORY: Dyspnea. Atypical chest pain. FINDINGS: An AP, portable, upright chest radiograph is compared to study dated 05/01/2017. Correlation is made with chest CT dated 07/04/1715. The examination is degraded by portable technique and patient rotation. The heart is enlarged and there is atherosclerotic calcification of the thoracic ureter. There is evidence of previous mitral valve surgery. There is pulmonary vascular congestion and interstitial edema. No airspace consolidation or large pleural effusion is identified. Emphysema and chronic interstitial thickening are similar to previous. 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 The skeletal structures are osteopenic. The bony thorax is grossly intact. Surgical clips project over the right upper chest. IMPRESSION: 1. Cardiomegaly with evidence of congestive failure and interstitial edema. 2. Emphysema. No airspace consolidation or large pleural effusion is identified. 3. Herniation of the right upper lung is again noted and unchanged from prior studies. Electronically signed by: Jame Batres M.D. 05/05/2017 4:13 PM Laboratory Results 05/05/17 15:35 Red Blood Count 3.52, Mean Corpuscular Volume 95.5, Mean Corpuscular Hemoglobin 31.5, Mean Corpuscular Hemoglobin Concent 33.0, Mean Platelet Volume 8.7, Neutrophils (%) (Auto) 82.1, Lymphocytes (%) (Auto) 11.8, Monocytes (%) (Auto) 4.8, Eosinophils (%) (Auto) 0.5, Basophils (%) (Auto) 0.1, Neutrophils # (Auto) 8.61, Lymphocytes # (Auto) 1.24, Monocytes # (Auto) 0.50, Eosinophils # (Auto) 0.05, Basophils # (Auto) 0.01 05/05/17 15:35 Test 05/05/17 15:00 05/05/17 15:35 05/05/17 16:48 05/05/17 16:54 Urine Color YELLOW Urine Appearance CLEAR (CLEAR) Urine pH 7.0 (4.5-7.5) Urine Specific [place] 1.008 (1.000-1.030) Urine Protein NEG (NEG) Urine Glucose (UA) 2+ (NEG) Urine Ketones NEG (NEG) Urine Occult Blood NEG (NEG) Urine Nitrite NEG (NEG) Urine Bilirubin NEG (NEG) Urine Urobilinogen NEG (NEG) Urine Leukocyte Esterase NEG (NEG) Urine WBC (Auto) 0 /hpf (0-5) Urine RBC (Auto) 0-4 /hpf (0-4) Urine Hyaline Casts (Auto) 0 /lpf (0-5) Urine Epithelial Cells (Auto) 0-5 /lpf (0-5) Urine Bacteria (Auto) NEG (NEG) White Blood Count 10.48 K/uL (4.8-10.8) Red Blood Count 3.52 M/uL (4.2-5.4) Hemoglobin 11.1 g/dL (12.0-16.0) Hematocrit 33.6 % (37-47) Mean Corpuscular Volume 95.5 fL (80-100) Mean Corpuscular Hemoglobin 31.5 pg (25-34) Mean Corpuscular Hemoglobin Concent 33.0 g/dl (32-36) Platelet Count 264 K/uL (130-400) Mean Platelet Volume 8.7 fL (7.4-10.4) Neutrophils (%) (Auto) 82.1 % Lymphocytes (%) (Auto) 11.8 % Monocytes (%) (Auto) 4.8 % Eosinophils (%) (Auto) 0.5 % Basophils (%) (Auto) 0.1 % Neutrophils # (Auto) 8.61 K/uL (1.4-6.5) Lymphocytes # (Auto) 1.24 K/uL (1.2-3.4) Monocytes # (Auto) 0.50 K/uL (0.11-0.59) Eosinophils # (Auto) 0.05 K/uL (0-0.5) Basophils # (Auto) 0.01 K/uL (0-0.2) RDW Standard Deviation 51.4 fL (36.4-46.3) RDW Coefficient of Variation 14.9 % (11.5-14.5) Immature Granulocyte % (Auto) 0.7 % Immature Granulocyte # (Auto) 0.07 K/uL (0.00-0.02) Prothrombin Time 30.8 SECONDS (9.0-12.0) Prothromb Time International Ratio 2.8 (0.9-1.1) Activated Partial Thromboplast Time 37.0 SECONDS (21.0-31.0) Partial Thromboplastin Ratio 1.4 Anion Gap 5.0 mmol/L (3-11) Est Creatinine Clear Calc Drug Dose 61.9 ml/min Estimated GFR () 63.2 Estimated GFR (Non- 54.5 BUN/Creatinine Ratio 22.2 (10-20) Calcium Level 9.0 mg/dl (8.5-10.1) Total Bilirubin 0.4 mg/dl (0.2-1) Aspartate Amino Transf (AST/SGOT) 42 U/L (15-37) Alanine Aminotransferase (ALT/SGPT) 130 U/L (12-78) Alkaline Phosphatase 99 U/L (45-117) Total Protein 6.4 gm/dl (6.4-8.2) Albumin 2.6 gm/dl (3.4-5.0) Globulin 3.8 gm/dl (2.5-4.0) Albumin/Globulin Ratio 0.7 (0.9-2) Lipase 159 U/L (73-393) Venous Blood pH 7.39 (7.36-7.41) Venous Blood Partial Pressure CO2 56 mmHg (38.0-50.0) Venous Blood Partial Pressure O2 52 mmHg Venous Blood HCO3 33 mmol/L Venous Blood Oxygen Saturation 83.3 % Venous Blood Base Excess 7.2 mEq/L KP-Zam-C-Type Natriuretic Peptide 2973 pg/ml (0-900) Laboratory results reviewed by me Medications Administered Medications (Trade) Dose Ordered Sig/Artemio Route Start Time Stop Time Status Last Admin Dose Admin Ondansetron HCl (Zofran Inj) 4 mg NOW STAT IV 05/05/17 16:19 05/05/17 16:22 DC 05/05/17 17:01 4 MG Furosemide (Lasix Inj) 40 mg NOW STAT IV 05/05/17 16:33 05/05/17 16:35 DC 05/05/17 17:01 40 MG ECG Indication: SOB/dyspnea Rate (beats per minute): 86 Rhythm: sinus rhythm Findings: PVC (1 PVC), RBBB, T-wave inversion (Questionable T-wave inversion in lead 3), other (Normal FL and QTC, QRS is mildly widened at .[address] changes) Change: no significant change (EKG is fairly unchanged from 05/02/17) ED Course 1602: The patient was evaluated in room C4. A complete history and physical exam was performed. 1645: I reevaluated the patient. She is resting comfortably and states she would like to go home. I discussed that it is still too early to decide if she can go home yet and she verbalized complete understanding. 1758: I discussed the patients case with Kandy Harry. He recommends the patient be evaluated by the hospital medicine team. 1800: I reevaluated the patient. She is resting comfortably. I discussed my recommendation she remain in the hospital for further evaluation and management and she verbalized complete understanding and agreement. 1808: I discussed the patients case with Alyssia Cantu PA-C, [facility]. The patient will be further evaluated. Medical Decision The patient is a 61 year old white female with a past medical history of CHF, a- fib, HTN and DM who presents to the ED with a cc of shortness of breath beginning yesterday. Triage Nursing notes reviewed. The patient's presentation and history were concerning for cardiac ischemia, aortic dissection, pulmonary embolism, pneumonia, pneumothorax, musculoskeletal , infections, pericarditis, myocarditis, esophageal rupture, gastrointestinal, as well as others were entertained. I evaluated the patient at the bedside. Concern that the patient was volume overloaded. Patient did not have any AK I am but BNP was elevated and chest x- ray was interstitial pulmonary edema and vascular congestion. Patient was given 40 of IV Lasix. Patient's EKG was really unchanged. Patient did not have tachycardia or new oxygen requirement. His troponin was positive. Patient 's INR was therapeutic. I spoke with cardiology who stated that yes the patient could be admitted. I spoke with the medicine service who agreed to admit for CHF exacerbation with positive troponin and trend enzymes and diuresis the patient. Medication Reconcilliation Current Medication List: was personally reviewed by me Blood Pressure Screening Patient's blood pressure: Elevated blood pressure Blood pressure disposition: Referred to PCP Consults Time Called: 171 Consulting Physician: [facility] Returned Call: 175 I discussed the patients case with Kandy Harry. He recommends the patient be evaluated by the hospital medicine team. Additional Consults: Time Called: 180 Consulted Physician: Alyssia Cantu PA-C, [facility] Returned Call: [phone] Additional Comments: I discussed the patients case with Alyssia Cantu PA-C, [facility]. The patient will be further evaluated. Impression Primary Impression: CHF exacerbation Additional Impressions: Elevated troponin Chest pain SOB (shortness of breath) Scribe Attestation The scribe's documentation has been prepared under my direction and personally reviewed by me in its entirety. I confirm that the note above accurately reflects all work, treatment, procedures, and medical decision making performed by me. Departure Information Dispostion Being Evaluated By Hospitalist Referrals Manoj Goins D.O. (PCP) Patient Instructions My [facility] Problem Qualifiers Primary Impression: CHF exacerbation Congestive heart failure type: systolic Qualified Codes: I50.23 - Acute on chronic systolic (congestive) heart failure Additional Impressions: Chest pain Chest pain type: chest pain on breathing Qualified Codes: R07.1 - Chest pain on breathing
[2017-05-05 16:29] LABS: POTASSIUM 4.7 mmol/L (3.5-5.1)
[2017-05-05] MEDS ORDERED: FUROSEMIDE 40 MG/4 ML VIAL IV STA (16:33)
[2017-05-05 16:35] LABS: ALB/GLOB RATIO 0.7 (0.9-2); BUN/CREATININE RATIO 22.2 (10-20)
[2017-05-05] MEDS ORDERED: LSX20 PO (16:50)
[2017-05-05] MEDS ORDERED: PANT40TA PO (16:50)
[2017-05-05] MEDS ORDERED: INSDGIPEN SC (16:50)
[2017-05-05] MEDS ORDERED: NVLGI/PEN SC (16:50)
[2017-05-05] MEDS ORDERED: LEVA1.258 NEB (17:00)
[2017-05-05] MEDS ORDERED: ATRINS NEB (17:00)
[2017-05-05 17:03] LABS: VEN BLD GAS O2 SATURATION 83.3 %; VEN BLOOD GAS BASE EXCESS 7.2 mEq/L
[2017-05-05] MEDS ORDERED: OXGN (17:24)
[2017-05-05] MEDS ORDERED: ZYP25 PO (17:28)
[2017-05-05] MEDS ORDERED: ADVIN25/60 INH (18:00)
[2017-05-05] MEDS ORDERED: AMT/50 PO (18:07)
[2017-05-05] MEDS ORDERED: NRN800 PO (18:07)
[2017-05-05] MEDS ORDERED: LPT40 PO (18:18)
[2017-05-05] MEDS ORDERED: NRV/10 PO (18:18)
[2017-05-05] MEDS ORDERED: EFFSR75 PO (18:18)
[2017-05-05] MEDS ORDERED: WARF-246 PO ×2 (18:21)
[2017-05-05] MEDS ORDERED: NITROGLYCERIN 0.4 MG SL PER TAB CHARGE SL PRN (18:45)
[2017-05-05] MEDS ORDERED: POLYETHYLENE (MIRALAX) 17 GM PACK PO PRN (18:45)
[2017-05-05] MEDS ORDERED: LORAZEPAM 0.5 MG TAB PO PRN (19:30)
[2017-05-05] MEDS ORDERED: GUAIFENESIN 200 MG TAB PO PRN (19:30)
--- NOTE | 2017-05-05 19:40 | History and Physical ---
History & Physical Date & Time of Service: May 05, 2017 at 19:40 Chief Complaint: Bilateral Foot Pain Primary Care Physician: Manoj Goins D.O. History of Present Illness Source: patient, clinic records, hospital records The patient is a 61 year old white female with a PMH of CHF, a-fib on coumadin, HTN and DM presents to the ED with c/o chest pain associated with shortness of breath. Pt was recently discharged from [facility] on 05/03 for Atrial Fib with RVR. He had a HUSSEIN and ablation done. Pt said that yesterday she woke up with SOB. she said that her sob was worsening with exertion. she said that she was drinking alot of water because her mouth was very dry. Pt said that today she develops chest pain. she said that she felt a pressure in her chest like someone sitting on her chest. Her chest pain was non radiating and constant. Pt said that she called her PCP and her PCP called the EMS for her to go to the ER. Pt said that her legs were very swelling. She said that she felt chills and diaphoresis. Pt said that she received IV lasix in the ER and now she feels better. Currently she has no chest pain. Past Medical/Surgical History Medical Problems: (1) Asthma Status: Chronic (2) Atrial fibrillation Status: Chronic (3) Bipolar disorder Status: Chronic (4) C. difficile colitis Status: Resolved (5) Chronic abdominal pain Status: Chronic (6) Chronic cor pulmonale Status: Chronic (7) Chronic pain Status: Chronic (8) Chronic respiratory failure Status: Chronic (9) COPD, severe Status: Chronic (10) Depression Status: Chronic (11) DM type 2 (diabetes mellitus, type 2) Status: Chronic (12) DVT (deep venous thrombosis) Status: Resolved (13) Gastroparesis Status: Chronic (14) GERD (gastroesophageal reflux disease) Status: Chronic (15) HTN (hypertension) Status: Chronic (16) Hypothyroidism Status: Chronic (17) Zeigler toxicity Status: Resolved (18) DARIUS on CPAP Status: Chronic (19) Osteoarthritis Status: Chronic (20) PAF (paroxysmal atrial fibrillation) Status: Chronic Surgical Problems: (1) H/O: hysterectomy Status: Resolved (2) Hx of appendectomy Status: Resolved (3) Hx of cholecystectomy Status: Resolved (4) Hx of lumpectomy Status: Resolved (5) 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 Status: Resolved (6) Hx of tubal ligation Status: Resolved (7) Hx of umbilical hernia repair Status: Resolved Family History Diabetes mellitus MOTHER FH: Crohn's disease SISTER Hypertension MOTHER Social History Smoking Status: Current Every Day Smoker Drug Use: none Marital Status: Housing status: lives with family Occupational Status: disabled Immunizations History of Influenza Vaccine: Yes Influenza Vaccine Date: May 30, 2015 History of Tetanus Vaccine?: Yes Tetanus Immunization Date: Apr 22, 2006 History of Pneumococcal: Yes Pneumococcal Date: Mar 24, 2015 Multi-Drug Resistant Organisms History of MDRO: No Allergies Coded Allergies: BEE STING (Verified Allergy, Severe, SWELLING, 04/20/17) Lisinopril (Verified Allergy, Intermediate, FACE SWELLING, 04/20/17) Potato (Verified Allergy, Intermediate, BBQ chips - facial swelling, ) Metronidazole (Verified Allergy, Mild, FACE SWELLING, 04/20/17) [place] (Verified Allergy, Mild, HIVES, 04/20/17) Alprazolam (Verified Allergy, Unknown, RED FACE, FACE SWELLING, 04/20/17) Lactose (Verified Adverse Reaction, Intermediate, VOMTING DIARRHEA ABDOMINAL PAIN, 04/20/17) Prednisone (Verified Adverse Reaction, Mild, unknown, 04/20/17) Colesevelam (Verified Adverse Reaction, Unknown, unknown, 04/20/17) Zeigler (Verified Adverse Reaction, Unknown, jitters, 04/20/17) Home Medications Scheduled Amitriptyline HCl (Amitriptyline HCl), 50 MG PO HS Amlodipine Besylate (Amlodipine Besylate), 10 MG PO QAM Atorvastatin (Atorvastatin Calcium), 40 MG PO HS Calcitriol (Calcitriol), 0.5 MCG PO 3XWK Cetirizine (Zyrtec), 10 MG PO QAM Fluticasone Prop/Salmeterol (Advair Diskus 250/50 60 Dose), 1 PUFF INH BID Furosemide (Furosemide), 20 MG PO DAILY Gabapentin (Gabapentin), 800 MG PO TID Home O2 Therapy (Oxygen), 3 LITERS NA CONTINOUS Insulin Aspart (Novolog Flexpen), 5 UNITS SC UD Insulin Glargine (Lantus Solostar), 16 UNITS SC BID Levothyroxine Sodium (Synthroid), 50 MCG PO QAM Metoclopramide Hcl (Reglan), 5 MG PO TIDM Metoprolol Tartrate (Lopressor) (Lopressor), 100 MG PO BID Multiple Vitamin (Multivitamin), 1 TAB PO QAM Olanzapine (Olanzapine), 2.5 MG PO HS Pantoprazole (Protonix), 40 MG PO DAILY Prednisone (Prednisone), 20 MG PO UD Tiotropium [place] (Spiriva Handihaler), 1 CAP INH DAILY Trazodone Hcl (Trazodone), 150 MG PO HS Venlafaxine Hcl (Effexor Extended Rel), 225 MG PO QAM Warfarin Sodium (Warfarin Sodium), 5 MG PO 2XWK Warfarin Sodium (Warfarin Sodium), 7.5 MG PO 5XWK Scheduled PRN Epinephrine (Epipen), 0.3 MG IM UD PRN for ALLERGIC REACTION Guaifenesin (Organ-I Nr), 200 MG PO Q8H PRN for Cough Ipratropium [place] (Ipratropium [place]), 1 VIAL NEB Q6H PRN for Shortness of Breath Levalbuterol Hcl (Levalbuterol Hcl), 1.25 MG NEB Q6H PRN for SOB/Wheezing Lorazepam (Lorazepam), 0.5 MG PO UD PRN for Anxiety/Agitation Review of Systems Constitutional: + chills Eyes: No eye pain ENT: + nasal symptoms Respiratory: + dyspnea on exertion Cardiovascular: + chest pain, + orthopnea, + edema Abdomen: No pain, No diarrhea Musculoskeletal: + joint pain, No calf pain Genitourinary - Female: No dysuria Neurologic: No memory loss, No weakness Psychiatric: No substance abuse Endocrine: + excessive thirst Hematologic / Lymphatic: No night sweats Integumentary: No rash, No itch Physical Exam Vital Signs Date Time Temp Pulse Resp B/P (MAP) Pulse Ox O2 Delivery O2 Flow Rate FiO2 05/05/17 18:22 66 18 112/67 98 Room Air 05/05/17 15:50 99 Nasal Cannula 3.0 05/05/17 15:50 77 18 99 Nasal Cannula 3.0 05/05/17 15:17 97 Nasal Cannula 3.0 05/05/17 15:06 37.0 93 19 154/73 98 Nasal Cannula 3.0 General Appearance: WD/WN, no apparent distress Head: normocephalic, atraumatic Eyes: PERRL, EOMI ENT: hearing grossly normal Neck: supple Respiratory/Chest: no accessory muscle use, + crackles Cardiovascular: regular rate, rhythm Abdomen/GI: normal bowel sounds, non tender Back: no CVA tenderness Extremities/Musculoskelatal: no calf tenderness, + swelling Neurologic/Psych: no motor/sensory deficits, alert, oriented x 3 Skin: normal color, warm/dry Diagnostics Laboratory Results Results Past 24 Hours Test 05/05/17 15:00 05/05/17 15:35 05/05/17 16:48 05/05/17 16:54 Range/Units Urine Color YELLOW Urine Appearance CLEAR CLEAR Urine pH 7.0 4.5-7.5 Urine Specific [place] 1.008 1.000-1.030 Urine Protein NEG NEG Urine Glucose (UA) 2+ NEG Urine Ketones NEG NEG Urine Occult Blood NEG NEG Urine Nitrite NEG NEG Urine Bilirubin NEG NEG Urine Urobilinogen NEG NEG Urine Leukocyte Esterase NEG NEG Urine WBC (Auto) 0 0-5 /hpf Urine RBC (Auto) 0-4 0-4 /hpf Urine Hyaline Casts (Auto) 0 0-5 /lpf Urine Epithelial Cells (Auto) 0-5 0-5 /lpf Urine Bacteria (Auto) NEG NEG White Blood Count 10.48 4.8-10.8 K/uL Red Blood Count 3.52 4.2-5.4 M/uL Hemoglobin 11.1 12.0-16.0 g/dL Hematocrit 33.6 37-47 % Mean Corpuscular Volume 95.5 80-100 fL Mean Corpuscular Hemoglobin 31.5 25-34 pg Mean Corpuscular Hemoglobin Concent 33.0 32-36 g/dl Platelet Count 264 130-400 K/uL Mean Platelet Volume 8.7 7.4-10.4 fL Neutrophils (%) (Auto) 82.1 % Lymphocytes (%) (Auto) 11.8 % Monocytes (%) (Auto) 4.8 % Eosinophils (%) (Auto) 0.5 % Basophils (%) (Auto) 0.1 % Neutrophils # (Auto) 8.61 1.4-6.5 K/uL Lymphocytes # (Auto) 1.24 1.2-3.4 K/uL Monocytes # (Auto) 0.50 0.11-0.59 K/uL Eosinophils # (Auto) 0.05 0-0.5 K/uL Basophils # (Auto) 0.01 0-0.2 K/uL RDW Standard Deviation 51.4 36.4-46.3 fL RDW Coefficient of Variation 14.9 11.5-14.5 % Immature Granulocyte % (Auto) 0.7 % Immature Granulocyte # (Auto) 0.07 0.00-0.02 K/uL Prothrombin Time 30.8 9.0-12.0 SECONDS Prothromb Time International Ratio 2.8 0.9-1.1 Activated Partial Thromboplast Time 37.0 21.0-31.0 SECONDS Partial Thromboplastin Ratio 1.4 Sodium Level 137 136-145 mmol/L Potassium Level 4.7 3.5-5.1 mmol/L Chloride Level 99 98-107 mmol/L Carbon Dioxide Level 33 21-32 mmol/L Anion Gap 5.0 3-11 mmol/L Blood Urea Nitrogen 24 7-18 mg/dl Creatinine 1.10 0.60-1.20 mg/dl Est Creatinine Clear Calc Drug Dose 61.9 ml/min Estimated GFR () 63.2 Estimated GFR (Non- 54.5 BUN/Creatinine Ratio 22.2 10-20 Random Glucose 290 70-99 mg/dl Calcium Level 9.0 8.5-10.1 mg/dl Total Bilirubin 0.4 0.2-1 mg/dl Aspartate Amino Transf (AST/SGOT) 42 15-37 U/L Alanine Aminotransferase (ALT/SGPT) 130 12-78 U/L Alkaline Phosphatase 99 45-117 U/L Total Protein 6.4 6.4-8.2 gm/dl Albumin 2.6 3.4-5.0 gm/dl Globulin 3.8 2.5-4.0 gm/dl Albumin/Globulin Ratio 0.7 0.9-2 Lipase 159 73-393 U/L Venous Blood pH 7.39 7.36-7.41 Venous Blood Partial Pressure CO2 56 38.0-50.0 mmHg Venous Blood Partial Pressure O2 52 mmHg Venous Blood HCO3 33 mmol/L Venous Blood Oxygen Saturation 83.3 % Venous Blood Base Excess 7.2 mEq/L [id number] Natriuretic Peptide 2973 0-900 pg/ml Diagnostic Radiology SINGLE VIEW CHEST CLINICAL HISTORY: Dyspnea. Atypical chest pain. FINDINGS: An AP, portable, upright chest radiograph is compared to study dated 05/01/2017. Correlation is made with chest CT dated 07/04/1715. The examination is degraded by portable technique and patient rotation. The heart is enlarged and there is atherosclerotic calcification of the thoracic ureter. There is evidence of previous mitral valve surgery. There is pulmonary vascular congestion and interstitial edema. No airspace consolidation or large pleural effusion is identified. Emphysema and chronic interstitial thickening are similar to previous. 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 The skeletal structures are osteopenic. The bony thorax is grossly intact. Surgical clips project over the right upper chest. IMPRESSION: 1. Cardiomegaly with evidence of congestive failure and interstitial edema. 2. Emphysema. No airspace consolidation or large pleural effusion is identified. 3. Herniation of the right upper lung is again noted and unchanged from prior studies. Electronically signed by: Jame Batres M.D. 05/05/2017 4:13 PM Dictated Date/Time: 05/05/2017 4:11 PM Impression Assessment and Plan Acute Diastolic heart Failure Present on admission with pressure like chest pain associated with worsening SOB on exertion CXR showed Cardiomegaly with evidence of congestive failure and interstitial edema Received IV lasix 40 mg in the ER Will continue IV lasix for now check CM Repeat cxr in am Cardiology consult Monitor BMP will continue monitor in telemetry ECHO on 04/07/17 Showed: * The left ventricle is normal in size. * There is moderate concentric left ventricular hypertrophy. * The left ventricular wall motion is normal. * Left ventricular systolic function is normal. * Ejection Fraction = 65-70%. * The left atrium is moderately dilated. * There is evidence of a previous mitral valve repair with restricted posterior leaflet excursion. * Significant mitral regurgitation is absent. * There is no mitral valve stenosis. Hx Afib Rate is controlled HUSSEIN and ablation done in her last admission Continue metoprolol 100mg BID Continue Coumadin INR therapeutic DM Type Hba1c 9.8 Pt said that her BS has been running good btw 110 to 140 Continue Lantus 16 unit BID Insulin coverage Continue BS CHRONIC HYPOXIC RESPIRATORY FAILURE / COPD Continue prednisone taper dose Continue supplemental O2 and Duoneb treatment Clinically improved DARIUS BIPAP HS while hospitalized; needs outpatient sleep study HYPERTENSION Stable continue home meds HYPOTHYROIDISM Continue levothyroxine CHRONIC PAIN Continue Fentanyl patch RECENT RLE FRACTURE Ortho was consulted in the last admission recommended to continue conservative management Weightbearing using a walker and weightbearing as tolerated in good diabetic shoes. Follow-up in 4-6 weeks with repeat x-rays AP and lateral right tib-fib and 3 views right foot BIPOLAR DISORDER Continue home medications DVT PROPHYLAXIS INR 2.8 CODE STATUS FULL CODE (as per discussion with pt not to prolong her life if prognostic is poor) Level of Care Telemetry Resuscitation Status FULL RESUSCITATION VTE Prophylaxis VTE Risk Assessment Done? Y/N: Yes Risk Level: Moderate Given or contraindicated: Warfarin (Coumadin) Additional Copies To Manoj Goins D.O.
[2017-05-05] MEDS ORDERED: DEXTROSE 50% 50 ML SYR IV PRN (19:45)
[2017-05-05] MEDS ORDERED: GLUCOSE 40% GEL 15 GM TUBE PO PRN (19:45)
[2017-05-05] MEDS ORDERED: GLUCAGON FOR INJ 1 MG VIAL SQ PRN (19:45)
[2017-05-05] MEDS ORDERED: GLUCOSE 10 TABS/TUBE PO PRN (19:45)
[2017-05-05 20:28] VITALS: BP 112/67; PULSE 66; TEMP 37; O2SAT 98; BMI 35.5
[2017-05-05 20:48] VITALS: PULSE 76; O2SAT 97
[2017-05-05] MEDS: ALBUT/IPRATROP 3MG/0.5MG NEB 3 ML VIAL INH SCH (20:48)
[2017-05-05] MEDS: INSULIN ASPART 100 UNITS/ML 3 ML PEN SC SCH (21:00)
[2017-05-05] MEDS: WARFARIN SOD 7.5 MG TAB PO SCH ×2 (21:00→22:05)
[2017-05-05] MEDS ORDERED: SPRIN/30 INH (22:04)
[2017-05-05] MEDS: FLUTICASONE/SALMETEROL 250/50 (ADVAIR) 14 PUFF/1 INHALER INH SCH (22:04)
[2017-05-05] MEDS: TRAZODONE HCL 50 MG TAB PO SCH (22:06)
[2017-05-05] MEDS: INSULIN GLARGINE SOLOSTAR 100 UNITS/ML 3 ML PEN SC SCH (22:07)
[2017-05-05] MEDS: METOPROLOL TARTRATE 100 MG TAB PO SCH (22:08)
[2017-05-05] MEDS: AMITRIPTYLINE HCL 50 MG TAB PO SCH (22:08)
[2017-05-05] MEDS: ATORVASTATIN 40 MG TAB PO SCH (22:08)
[2017-05-05] MEDS: OLANZAPINE 2.5 MG TAB PO SCH (22:09)
[2017-05-05] MEDS: GABAPENTIN 800 MG TAB PO SCH (22:09)
[2017-05-05] MEDS: OXYCODONE HCL IR 5 MG TAB (IMMEDIATE RELEASE) PO PRN (22:50)
[2017-05-05 23:10] VITALS: BP 130/72; PULSE 74; TEMP 36.6; O2SAT 98
[2017-05-05] MEDS ORDERED: CETI10TA84 PO (23:13)
[2017-05-05] MEDS ORDERED: MULTTAB58 PO (23:16)
[2017-05-05] MEDS ORDERED: EPP3/2 IM (23:16)
[2017-05-06] VITALS (10 sets, daily range): BP systolic 114–146; BP diastolic 61–84; PULSE 67–81; TEMP 36.2–36.7; O2SAT 94–98; Ht 162.6 cm; Wt 91.2 kg
[2017-05-06 04:29] LABS: HEMATOCRIT 30.9 % (37-47); MEAN CELL VOLUME 94.8 fL (80-100); MEAN CORPUSCULAR HGB CONC 32.7 g/dl (32-36); MEAN PLATELET VOLUME 8.5 fL (7.4-10.4); PLATELET COUNT 237 K/uL (130-400); RED BLOOD COUNT 3.26 M/uL (4.2-5.4); WHITE BLOOD COUNT 8.09 K/uL (4.8-10.8)
[2017-05-06 04:39] LABS: INR 3.3 (0.9-1.1); PROTHROMBIN TIME (PATIENT) 37.5 SECONDS (9.0-12.0)
[2017-05-06 05:05] LABS: BUN/CREATININE RATIO 23.6 (10-20); CALCIUM 8.8 mg/dl (8.5-10.1); CREATININE 0.97 mg/dl (0.60-1.20)
[2017-05-06] MEDS: LEVOTHYROXINE 50 MCG TAB PO SCH (06:00)
[2017-05-06] MEDS: ALBUT/IPRATROP 3MG/0.5MG NEB 3 ML VIAL INH SCH ×4 (06:49→18:58)
[2017-05-06] MEDS ORDERED: FUROSEMIDE INJ 40 MG in SYRINGE 0 ML IV SCH (09:00)
[2017-05-06] MEDS: INSULIN ASPART 100 UNITS/ML 3 ML PEN SC SCH ×4 (09:51→20:33)
[2017-05-06] MEDS: TIOTROPIUM BROMIDE 5 PUFF/90 MCG INH INH SCH (09:56)
[2017-05-06] MEDS: METOCLOPRAMIDE HCL 5 MG TAB PO SCH ×3 (09:56→17:38)
[2017-05-06] MEDS: FLUTICASONE/SALMETEROL 250/50 (ADVAIR) 14 PUFF/1 INHALER INH SCH ×2 (09:57→20:00)
[2017-05-06] MEDS: AMLODIPINE BESYLATE 5 MG TAB PO SCH (09:58)
[2017-05-06] MEDS: PANTOprazole SOD 40 MG TAB PO SCH (09:59)
[2017-05-06] MEDS: VENLAFAXINE HCL XR 75 MG CAPXR PO SCH (09:59)
[2017-05-06] MEDS: CETIRIZINE HCL 10 MG TAB PO SCH (09:59)
[2017-05-06] MEDS: GABAPENTIN 800 MG TAB PO SCH ×3 (10:00→20:00)
[2017-05-06] MEDS: METOPROLOL TARTRATE 100 MG TAB PO SCH ×2 (10:01→20:01)
[2017-05-06] MEDS: INSULIN GLARGINE SOLOSTAR 100 UNITS/ML 3 ML PEN SC SCH ×2 (10:03→20:33)
--- NOTE | 2017-05-06 10:51 | ECHOCARDIOGRAM REPORT ---
*NOTICE TO RECEIVING DEMOCRAT AGENCY This information is strictly Confidential and protected under [place] law. [place] law prohibits you from making any further disclosure of this information unless further disclosure is expressly permitted by the written consent of the person to whom it pertains or is authorized by law. A general authorization for the release of medical or other information is not sufficient for this purpose. Hospital accepts no responsibility if the information is made available to any other person, INCLUDING THE PATIENT. Interpretation Summary * Name: ALVARO ROBERTS I Study Date: 05/06/2017 09:24 AM * Patient Location: .2T\S\E222\S\1 HR: 100 * : 1955 (M/d/yyyy) Gender: Female Height: 64 in * Age: 61 yrs Ethnicity: [place] Weight: 206 lb * Ordering Physician: Sree Quinonez * Referring Physician: Manoj Goins D.O. * Performed By: Jeanette Troncoso RCS * * Reason For Study: FX, Wall Motion, Pericardial Effusion * BSA: 2.0 m2 * The study was technically adequate. * Compared to prior study, there is no significant change. * -- Conclusions -- * Ejection Fraction = 65-70%. * There is mild concentric left ventricular hypertrophy. * The left ventricular wall motion is normal. * The right ventricle is normal in size and function. * There is no pericardial effusion. Procedure Details * Left Ventricle There is mild concentric left ventricular hypertrophy. Ejection Fraction = 65-70%. The left ventricular wall motion is normal. * Right Ventricle The right ventricle is normal in size and function. * Atria The left atrium is moderately dilated. * Mitral Valve An annuloplasty ring is noted in the mitral position. * Pericardium/Pleural There is no pericardial effusion. * * MMode 2D Measurements and Calculations * IVSd 1.1 cm * * LVIDd 4.6 cm * LVIDs 3.2 cm * LVPWd 1.2 cm * * IVS/LVPW 0.88 * FS 31.5 % * EDV(Teich) 97.3 ml * ESV(Teich) 39.4 ml * EF(Teich) 59.5 % * * EDV(cubed) 97.3 ml * ESV(cubed) 31.3 ml * EF(cubed) 67.9 % * * LV mass(C)d 189.4 grams * LV mass(C)dI 95.6 grams/m\S\2 * * SV(Teich) 57.9 ml * SI(Teich) 29.2 ml/m\S\2 * SV(cubed) 66.1 ml * SI(cubed) 33.4 ml/m\S\2 * * LVAd ap4 30.2 cm\S\2 * LVLd ap4 7.7 cm * EDV(MOD-sp4) 99.0 ml * LVAs ap4 13.6 cm\S\2 * LVLs ap4 6.4 cm * ESV(MOD-sp4) 24.0 ml * EF(MOD-sp4) 75.8 % * * LVAd ap2 22.3 cm\S\2 * LVLd ap2 7.2 cm * EDV(MOD-sp2) 58.0 ml * LVAs ap2 11.9 cm\S\2 * LVLs ap2 5.8 cm * ESV(MOD-sp2) 21.0 ml * EF(MOD-sp2) 63.8 % * * SV(MOD-sp4) 75.0 ml * SI(MOD-sp4) 37.9 ml/m\S\2 * * SV(MOD-sp2) 37.0 ml * SI(MOD-sp2) 18.7 ml/m\S\2 * * * *
--- NOTE | 2017-05-06 12:23 | Clinical Documentation Query ---
JEFFRY Olvera : CLINICAL DOCUMENTATION QUERY Patient is a 61 year old female admitted for evaluation and treatment of acute diastolic CHF in the setting of chronic respiratory failure, hypertension, and possible CKD stage 2-3. Review of historical EMR demonstrates a range of 29-67 ml/min from 10/18/16 to present. As appropriate, consider capturing this diagnosis as suggested below in order to appropriately attribute severity of illness and risk of mortality. Thank you. In your clinical opinion is this patient being managed for: ( ) Chronic kidney disease, stage 2-3 ( ) Other explanation of clinical findings (Please Explain) ( ) Unable to determine (Please Define) ( ) Need to Discuss ( ) Not Agree The medical record reflects the following clinical findings, treatment, and risk factors. Clinical Indicators: As above Treatment: Serial chemistries Risk Factors: Age, hypertension, DM Please clarify and document your clinical opinion in the progress notes and discharge summary. Terms such as "probable", "suspected", "likely", "questionable", "possible", or "still to be ruled out" are acceptable. IF IN AGREEMENT, YOU MUST DOCUMENT ABOVE DIAGNOSTIC STATEMENT IN DAILY PROGRESS NOTES AND DISCHARGE SUMMARY. This document is not part of the patient's record. Thank You, Austin Pace, RN [phone]
--- NOTE | 2017-05-06 13:57 | CARDIOLOGY CONSULTATION ---
DATE OF CONSULTATION: 05/06/2017 REFERRING PHYSICIAN: Dr. Elise Guillaume. REASON FOR CONSULTATION: Congestive heart failure. HISTORY OF PRESENT ILLNESS: Ms. Minaya is a 61-year-old female recently hospitalized with rapid atrial flutter. She underwent atrial flutter ablation last week and was discharged to home on Friday. Over the weekend, the patient admits to consuming excessive amounts of water. She developed shortness of breath, chest pain, and lower extremity edema. She came back to the Emergency Department and found to be in acute decompensated heart failure. Repeat echocardiogram demonstrates preserved LV systolic function. There is no pericardial effusion. No regional wall motion abnormalities. She has received 2 doses of intravenous Lasix and is feeling much better. Lower extremity edema persists. Denies orthopnea or chest pain currently. Troponins are mildly elevated. Complex history listed below. Offers no other complaints at this time. REVIEW OF SYSTEMS: The pertinent positive noted above, a comprehensive 10-system review is otherwise negative. PAST MEDICAL HISTORY: 1. Paroxysmal atrial flutter status post ablation, 05/01/2017. 2. 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 3. Cardiac catheterization in 2004 demonstrating no obstructive coronary artery disease. 4. Symptomatic atrial flutter, first discovered in 2012, status post cardioversion in 2012 as well as flutter ablation last week. 5. Chronic Coumadin anticoagulation secondary to history of DVT and atrial flutter. 6. Severe chronic obstructive pulmonary disease with hypoxemia. 7. Chronic diastolic heart failure. 8. DARIUS. 9. Anemia. 10. Hypertension. 11. Dyslipidemia. 12. Diabetes type 2. 13. CKD. 14. Adrenal mass. 15. Obesity. 16. Bipolar disorder. 17. GERD. 18. Gastroparesis. 19. Hypothyroidism. 20. Osteoarthritis. 21. Cervical disk disease. PAST SURGICAL HISTORY: As noted above. SOCIAL HISTORY: Tobacco abuse since age 13. FAMILY HISTORY: Positive for diabetes and hypertension. No premature CAD or sudden cardiac . ALLERGIES: 1. BEE STINGS. 2. LISINOPRIL. 3. POTATOES. 4. METRONIDAZOLE. 5. STRAWBERRIES. 6. ALPRAZOLAM. 7. LACTOSE 8. PREDNISONE. 9. COLESEVELAM. 10. LITHIUM. HOME MEDICATIONS: 1. Amitriptyline 50 mg daily. 2. Amlodipine 10 mg daily. 3. Atorvastatin 40 mg daily. 4. Calcitriol 0.5 mcg 3 times per week. 5. Zyrtec 10 mg daily. 6. Advair Diskus 250/50 one puff twice daily. 7. Furosemide 20 mg daily. 8. Gabapentin 800 mg t.i.d. 9. Oxygen 3 liters continuous. 10. FlexPen NovoLog insulin 5 units subQ as directed. 11. Lantus 16 units twice daily. 12. Synthroid 50 mcg daily. 13. Reglan 5 mg t.i.d. 14. Lopressor 100 mg b.i.d. 15. Multivitamin daily. 16. Olanzapine 2.5 mg at bedtime. 17. Protonix 40 mg daily. 18. Prednisone 20 mg as directed. 19. Spiriva 1 cap inhaled daily. 20. Trazodone 150 mg at bedtime. 21. Effexor 225 mg daily. 22. Warfarin 5 mg 2 days per week and 7.5 mg rest of the week. 23. EpiPen as needed. 24. Guaifenesin as needed. 25. Atrovent as needed. 26. Xopenex as needed. 27. Lorazepam as needed. ECG on admission is sinus rhythm with a right bundle branch block. Telemetry demonstrates sinus rhythm with occasional PACs. LABORATORY DATA: Initial troponin 0.269. Repeat troponin this morning is 0.220. Sodium 143, potassium 4.0, chloride 102, CO2 is 40, BUN is 23, and creatinine is 0.97. INR is 3.3. White blood count 8.09, hemoglobin is 10.1, and platelet count is 237. VBG on admission 7.39/56/52/33/83.3%. Chest x-ray on admission demonstrates emphysema with congestive heart failure and interstitial edema. PHYSICAL EXAMINATION: VITAL SIGNS: Temperature is 36.4 degrees Celsius, pulse 68 beats per minute and regular, respiratory rate is 18 breaths per minute, blood pressure 141/84 and SaO2 is 96% on 2 liters. GENERAL: NAD, awake, alert and oriented x3. Obese. HEENT: Mucous membranes are moist. No scleral icterus. Conjunctivae pink. NECK: Supple without JVD or HJR. No carotid bruit. HEART: Regular with a normal S1 and S2. There is no murmur, rub or gallop. LUNGS: Demonstrate faint expiratory wheezes with crackles at the left base. No rhonchi. ABDOMEN: Obese and nontender. No rebound or guarding. Her bilateral groins are soft without hematoma or ecchymosis. EXTREMITIES: Warm and dry. There is no clubbing or cyanosis. There is +2 ankle and pretibial edema bilaterally. NEUROLOGIC: Demonstrates no focal deficit. FINAL IMPRESSION: 1. Acute decompensated heart failure secondary to excessive water intake and diastolic dysfunction. 2. Paroxysmal atrial flutter status post recent ablation -- no recurrence on telemetry. 3. Mildly supratherapeutic INR. 4. Chronic respiratory failure/hypoxemia secondary to underlying severe chronic obstructive pulmonary disease. 5. Obstructive sleep apnea, on BiPAP. 6. Hypertension -- controlled. 7. History of mitral valve fibroelastoma, status post repair. PLAN AND RECOMMENDATIONS: I will increase intravenous Lasix to 40 mg twice daily. Maintain negative fluid balance over the next 12-24 hours. The patient will likely require titration of her outpatient diuretic at the time of discharge. Previously, she states 20 mg of Lasix twice daily was effective in maintaining her fluid balance. We will continue to follow her renal function, daily weight, and urine output closely. Other cardiovascular medications will be continued as previously ordered. Her Coumadin will be held today with a repeat INR in the a.m. We will continue to follow closely during hospitalization. Thank you for allowing me to take part in the care of your patient.
--- NOTE | 2017-05-06 14:26 | DIAGNOSTIC IMAGING REPORT ---
CHEST ONE VIEW PORTABLE CLINICAL HISTORY: 61 years-old Female presenting with F/U. TECHNIQUE: Portable upright AP view of the chest was obtained. COMPARISON: 05/05/2017. FINDINGS: Atherosclerosis of aortic arch. Cardiac silhouette enlargement as on prior exam. Main pulmonary artery enlargement. Slight interval decrease in right basilar vague opacities. Persistent vascular prominence unchanged. Evidence of herniation of a portion of the upper right lateral lung, unchanged. No large effusion or pneumothorax. Osseous structures normal. Upper abdomen normal. IMPRESSION: 1. Cardiomegaly with decreasing pulmonary edema. Electronically signed by: Erick Garner M.D. 05/06/2017 2:25 PM Dictated Date/Time: 05/06/2017 2:24 PM
[2017-05-06] MEDS: OXYCODONE HCL IR 5 MG TAB (IMMEDIATE RELEASE) PO PRN (15:11)
--- NOTE | 2017-05-06 17:31 | Progress Note ---
Medicine Progress Note Date & Time of Visit: May 06, 2017 at 17:11. Subjective Pt was seen and examined Lying in bed with no distress Pt said that she feels much better today She said that her breathing is much better she is no longer has any chest pain denies any palpitation, dizziness and SOB Objective Last 8 Hrs Date Time Temp Pulse Resp B/P (MAP) Pulse Ox O2 Delivery O2 Flow Rate FiO2 05/06/17 16:12 36.7 67 20 114/68 (83) 95 Nasal Cannula 3.0 05/06/17 15:12 77 16 95 Nasal Cannula 2.0 05/06/17 12:00 Room Air 05/06/17 11:27 36.4 68 18 141/84 (103) 96 2.0 05/06/17 11:19 72 16 94 Nasal Cannula 2.0 Physical Exam: General- No acute distress Head- atraumatic Eyes- PERRL, EOMI ENT- oropharynx clear Neck- supple, no JVD Lungs- Crackle improved Heart- regular rhythm; no murmur Abdomen- normal bowel sounds, soft Extremities- +edema, no calf tenderness Neuro- alert, oriented x 3; PERRL, EOMI; no facial palsy; Skin- warm & dry Laboratory Results: Last 24 Hours Test 05/05/17 20:45 05/05/17 20:49 05/06/17 04:15 05/06/17 04:21 Bedside Glucose 162 mg/dl Troponin I 0.269 ng/ml 0.251 ng/ml White Blood Count 8.09 K/uL Red Blood Count 3.26 M/uL Hemoglobin 10.1 g/dL Hematocrit 30.9 % Mean Corpuscular Volume 94.8 fL Mean Corpuscular Hemoglobin 31.0 pg Mean Corpuscular Hemoglobin Concent 32.7 g/dl RDW Standard Deviation 50.6 fL RDW Coefficient of Variation 14.6 % Platelet Count 237 K/uL Mean Platelet Volume 8.5 fL Prothrombin Time 37.5 SECONDS Prothromb Time International Ratio 3.3 Sodium Level 143 mmol/L Potassium Level 4.0 mmol/L Chloride Level 102 mmol/L Carbon Dioxide Level 40 mmol/L Anion Gap 1.0 mmol/L Blood Urea Nitrogen 23 mg/dl Creatinine 0.97 mg/dl Est Creatinine Clear Calc Drug Dose 68.5 ml/min Estimated GFR () 73.6 Estimated GFR (Non- 63.5 BUN/Creatinine Ratio 23.6 Random Glucose 93 mg/dl Calcium Level 8.8 mg/dl Test 05/06/17 06:28 05/06/17 08:07 05/06/17 10:04 05/06/17 11:09 Bedside Glucose 74 mg/dl 180 mg/dl 224 mg/dl Troponin I 0.220 ng/ml Test 05/06/17 16:32 Bedside Glucose 261 mg/dl Assessment & Plan Acute decompensated Diastolic heart Failure Present on admission with pressure like chest pain associated with worsening SOB on exertion CXR showed Cardiomegaly with evidence of congestive failure and interstitial edema Received IV lasix 40 mg in the ER Lasix increase to 40mg IV BID fluid restriction elevated Troponin, now trending down Repeat CXR showed Cardiomegaly with decreasing pulmonary edema. Cardiology on board Monitor BMP continue monitor in telemetry ECHO on 04/07/17 Showed: * The left ventricle is normal in size. * There is moderate concentric left ventricular hypertrophy. * The left ventricular wall motion is normal. * Left ventricular systolic function is normal. * Ejection Fraction = 65-70%. * The left atrium is moderately dilated. * There is evidence of a previous mitral valve repair with restricted posterior leaflet excursion. * Significant mitral regurgitation is absent. * There is no mitral valve stenosis. Hx P. Afib Rate is controlled on NSR HUSSEIN and ablation done in her last admission Continue metoprolol 100mg BID INR 3.3 today Hold today coumadin DM Type Hba1c 9.8 Pt said that her BS has been running good btw 110 to 140 Continue Lantus 16 unit BID Insulin coverage Continue monitor BS CHRONIC HYPOXIC RESPIRATORY FAILURE / COPD Continue prednisone taper dose Continue supplemental O2 and Duoneb treatment Clinically improved DARIUS BIPAP HS while hospitalized; needs outpatient sleep study HYPERTENSION Stable continue home meds HYPOTHYROIDISM Continue levothyroxine CHRONIC PAIN Continue Fentanyl patch RECENT RLE FRACTURE Ortho was consulted in the last admission recommended to continue conservative management Weightbearing using a walker and weightbearing as tolerated in good diabetic shoes. Follow-up in 4-6 weeks with repeat x-rays AP and lateral right tib-fib and 3 views right foot BIPOLAR DISORDER Continue home medications DVT PROPHYLAXIS INR 3.3 CODE STATUS FULL CODE (as per discussion with pt not to prolong her life if prognostic is poor) Consultants: cardiology Current Inpatient Medications: Current Inpatient Medications Medications (Trade) Dose Ordered Sig/Artemio Route Start Time Stop Time Status Last Admin Dose Admin Nitroglycerin (Nitrostat Tab) 0.4 mg UD PRN SL 05/05/17 18:45 06/04/17 18:44 Polyethylene (Miralax Powder Packet) 17 gm DAILY PRN PO 05/05/17 18:45 06/04/17 18:44 Amitriptyline HCl (Elavil Tab) 50 mg HS PO 05/05/17 21:00 06/04/17 20:59 05/05/17 22:08 50 MG Atorvastatin Calcium (Lipitor Tab) 40 mg HS PO 05/05/17 21:00 06/04/17 20:59 05/05/17 22:08 40 MG Cetirizine HCl (zyrTEC TAB) 10 mg QAM PO 05/06/17 09:00 06/05/17 08:59 05/06/17 09:59 10 MG Salmeterol Xinafoate/ Fluticasone (Advair Diskus 250/50 Inh) 1 puff BID INH 05/05/17 21:00 06/04/17 20:59 05/06/17 09:57 1 PUFF Gabapentin (Neurontin Tab) 800 mg TID PO 05/05/17 21:00 06/04/17 20:59 05/06/17 12:42 800 MG Guaifenesin (Organidin Nr Tab) 200 mg Q8H PRN PO 05/05/17 19:30 06/04/17 19:29 05/06/17 10:00 200 MG Insulin Glargine (Lantus Solostar Pen) 16 units BID SC 05/05/17 21:00 06/04/17 20:59 05/06/17 10:03 16 UNITS Levothyroxine Sodium (Synthroid Tab) 50 mcg DAILYBB PO 05/06/17 06:00 06/05/17 06:59 05/06/17 06:00 50 MCG Lorazepam (Ativan Tab) 0.5 mg DAILY PRN PO 05/05/17 19:30 06/04/17 19:29 Metoclopramide HCl (Reglan Tab) 5 mg TIDM PO 05/06/17 07:30 06/05/17 07:59 05/06/17 12:42 5 MG Metoprolol Tartrate (Lopressor Tab) 100 mg BID PO 05/05/17 21:00 06/04/17 20:59 05/06/17 10:01 100 MG Olanzapine (Zyprexa Tab) 2.5 mg HS PO 05/05/17 21:00 06/04/17 20:59 05/05/17 22:09 2.5 MG Pantoprazole Sodium (Protonix Tab) 40 mg DAILY PO 05/06/17 09:00 06/05/17 08:59 05/06/17 09:59 40 MG Tiotropium Stanley (Spiriva Handihaler Inhaler) 1 puff DAILY INH 05/06/17 09:00 06/05/17 08:59 05/06/17 09:56 1 PUFF Trazodone HCl (Desyrel Tab) 150 mg HS PO 05/05/17 21:00 06/04/17 20:59 05/05/17 22:06 150 MG Venlafaxine HCl (effeXOR EXTENDED REL CAP) 225 mg QAM PO 05/06/17 09:00 06/05/17 08:59 05/06/17 09:59 225 MG Amlodipine Besylate (Norvasc Tab) 10 mg QAM PO 05/06/17 09:00 06/05/17 08:59 05/06/17 09:58 10 MG Calcitriol (Rocaltrol Cap) 0.5 mcg MoWeFr@0900 PO 05/07/17 09:00 06/06/17 08:59 Warfarin Sodium (Coumadin Tab) 5 mg SuTh@1600 PO 05/08/17 16:00 06/07/17 15:59 Warfarin Sodium (Coumadin Tab) 7.5 mg MoTuWeFrSa@1600 PO 05/05/17 21:00 06/04/17 20:59 Future hold Albuterol/ Ipratropium (Duoneb) 3 ml QIDR INH 05/05/17 20:00 06/04/17 19:59 05/06/17 15:12 3 ML Insulin Aspart (novoLOG ASPART) SLIDING SCALE If C... ACHS SC 05/05/17 21:00 06/04/17 20:59 05/06/17 12:44 3 UNITS Glucose (Glucose 40% Gel) 15-30 GRAMS 15 GRAMS... UD PRN PO 05/05/17 19:45 9/20/17 19:44 Glucose (Glucose Chew Tab) 4-8 Tablets 4 Tabl... UD PRN PO 05/05/17 19:45 06/04/17 19:44 Dextrose (Dextrose 50% 50ML Syringe) 25-50ML OF 50% DW IV FOR... UD PRN IV 05/05/17 19:45 06/04/17 19:44 Glucagon (Glucagon Inj) 1 mg UD PRN SQ 05/05/17 19:45 06/04/17 19:44 Prednisone (PredniSONE TAB) 20 mg DAILY PO 05/06/17 09:00 06/04/17 19:29 05/06/17 09:57 20 MG Oxycodone HCl (Roxicodone Immediate Rel Tab) pain not relieved by tylenol hold for sedati... Q6H PRN PO 05/05/17 22:30 05/19/17 22:29 05/06/17 15:11 10 MG Nicotine (Nicoderm Cq 21MG Patch) 1 patch QAM TD 05/07/17 09:00 06/06/17 08:59 Miscellaneous (Remove Nicoderm Patch) 1 ea HS N/A 05/06/17 21:00 06/05/17 20:59 Furosemide 40 mg/ Syringe 4 ml @ 4 mls/min BID17 IV 05/06/17 17:00 06/05/17 16:59
[2017-05-06] MEDS: FUROSEMIDE INJ 40 MG in SYRINGE 0 ML IV SCH (17:38)
[2017-05-06] MEDS: ATORVASTATIN 40 MG TAB PO SCH (20:00)
[2017-05-06] MEDS: TRAZODONE HCL 50 MG TAB PO SCH (20:00)
[2017-05-06] MEDS: OLANZAPINE 2.5 MG TAB PO SCH (20:00)
[2017-05-06] MEDS: AMITRIPTYLINE HCL 50 MG TAB PO SCH (20:00)
[2017-05-07] VITALS (7 sets, daily range): BP systolic 122–149; BP diastolic 59–81; PULSE 63–86; TEMP 36.5–36.9; O2SAT 97–100
[2017-05-07 06:32] LABS: HEMATOCRIT 31.6 % (37-47); MEAN CELL VOLUME 95.2 fL (80-100); MEAN CORPUSCULAR HEMOGLOBIN 31.3 pg (25-34); MEAN CORPUSCULAR HGB CONC 32.9 g/dl (32-36); MEAN PLATELET VOLUME 8.8 fL (7.4-10.4); PLATELET COUNT 248 K/uL (130-400); RED BLOOD COUNT 3.32 M/uL (4.2-5.4); WHITE BLOOD COUNT 6.36 K/uL (4.8-10.8)
[2017-05-07 06:46] LABS: INR 4.6 (0.9-1.1); PROTHROMBIN TIME (PATIENT) 52.9 SECONDS (9.0-12.0)
[2017-05-07] MEDS: LEVOTHYROXINE 50 MCG TAB PO SCH (06:48)
[2017-05-07 07:02] LABS: BUN/CREATININE RATIO 27.2 (10-20); CALCIUM 8.5 mg/dl (8.5-10.1); CREATININE 0.89 mg/dl (0.60-1.20); POTASSIUM 3.7 mmol/L (3.5-5.1)
[2017-05-07] MEDS: ALBUT/IPRATROP 3MG/0.5MG NEB 3 ML VIAL INH SCH ×2 (07:43→11:42)
[2017-05-07] MEDS ORDERED: NICOTINE 21 MG/24 HR TDSY TD SCH (09:00)
[2017-05-07] MEDS ORDERED: CALCITRIOL 0.25 MCG CAP PO SCH (09:00)
--- NOTE | 2017-05-07 09:56 | Clinical Documentation Query ---
Dr. Moreau: CLINICAL DOCUMENTATION QUERY Patient is a 61 year old female admitted for evaluation and treatment of acute diastolic CHF in the setting of chronic respiratory failure, hypertension, and possible CKD stage 2-3. Review of historical EMR demonstrates a range of 29-67 ml/min from 10/18/16 to present. As appropriate, consider capturing this diagnosis as suggested below in order to appropriately attribute severity of illness and risk of mortality. Thank you. In your clinical opinion is this patient being managed for: ( ) Chronic kidney disease, stage 2-3 (X ) Other explanation of clinical findings (Please Explain) CKD 3 ( ) Unable to determine (Please Define) ( ) Need to Discuss ( ) Not Agree The medical record reflects the following clinical findings, treatment, and risk factors. Clinical Indicators: As above Treatment: Serial chemistries Risk Factors: Age, hypertension, DM Please clarify and document your clinical opinion in the progress notes and discharge summary. Terms such as "probable", "suspected", "likely", "questionable", "possible", or "still to be ruled out" are acceptable. IF IN AGREEMENT, YOU MUST DOCUMENT ABOVE DIAGNOSTIC STATEMENT IN DAILY PROGRESS NOTES AND DISCHARGE SUMMARY. This document is not part of the patient's record.
[2017-05-07] MEDS: FUROSEMIDE INJ 40 MG in SYRINGE 0 ML IV SCH (09:59)
[2017-05-07] MEDS: FLUTICASONE/SALMETEROL 250/50 (ADVAIR) 14 PUFF/1 INHALER INH SCH (10:00)
[2017-05-07] MEDS: TIOTROPIUM BROMIDE 5 PUFF/90 MCG INH INH SCH (10:01)
[2017-05-07] MEDS: PANTOprazole SOD 40 MG TAB PO SCH (10:02)
[2017-05-07] MEDS: METOCLOPRAMIDE HCL 5 MG TAB PO SCH ×2 (10:02→14:09)
[2017-05-07] MEDS: METOPROLOL TARTRATE 100 MG TAB PO SCH (10:02)
[2017-05-07] MEDS: VENLAFAXINE HCL XR 75 MG CAPXR PO SCH (10:03)
[2017-05-07] MEDS: GABAPENTIN 800 MG TAB PO SCH ×2 (10:03→14:09)
[2017-05-07] MEDS: CETIRIZINE HCL 10 MG TAB PO SCH (10:04)
[2017-05-07] MEDS: AMLODIPINE BESYLATE 5 MG TAB PO SCH (10:04)
[2017-05-07] MEDS: INSULIN ASPART 100 UNITS/ML 3 ML PEN SC SCH ×2 (10:09→12:30)
[2017-05-07] MEDS: INSULIN GLARGINE SOLOSTAR 100 UNITS/ML 3 ML PEN SC SCH (10:10)
[2017-05-07] MEDS: OXYCODONE HCL IR 5 MG TAB (IMMEDIATE RELEASE) PO PRN (10:13)
--- NOTE | 2017-05-07 12:16 | Progress Note ---
Medicine Progress Note Date & Time of Visit: May 07, 2017 at 11:49. Subjective patient seen resting in bed, comfortable states she feels way better denies shortness of breath, chest pain, dizziness, nausea/vomiting no other symptoms states she is ready and would like to be discharged today Objective Last 8 Hrs Date Time Temp Pulse Resp B/P (MAP) Pulse Ox O2 Delivery O2 Flow Rate FiO2 05/07/17 11:42 68 16 98 Nasal Cannula 3.0 05/07/17 11:21 36.6 71 20 136/81 (99) 97 3.0 05/07/17 07:47 36.7 66 18 149/76 (100) 100 3.0 05/07/17 07:23 63 16 99 Nasal Cannula 3.0 05/07/17 04:00 Nasal Cannula 3.0 CPAP 05/07/17 04:00 36.5 86 22 131/73 (92) 97 Nasal Cannula 3.0 Physical Exam: General- oriented x 3, not in distress, speaks in sentences with no effort Head- atraumatic Eyes- anicteric ENT- oropharynx clear Neck- supple, no JVD Lungs- clear breath sounds bilaterally Heart- regular rhythm; no murmur, normal rate Abdomen- normal bowel sounds, soft, nontender Extremities- no pretibial edema, no calf tenderness Neuro- alert, oriented x 3; no gross deficits Skin- warm & dry Laboratory Results: Last 24 Hours Test 05/06/17 16:32 05/06/17 20:03 05/07/17 06:01 05/07/17 07:01 Bedside Glucose 261 mg/dl 350 mg/dl 108 mg/dl White Blood Count 6.36 K/uL Red Blood Count 3.32 M/uL Hemoglobin 10.4 g/dL Hematocrit 31.6 % Mean Corpuscular Volume 95.2 fL Mean Corpuscular Hemoglobin 31.3 pg Mean Corpuscular Hemoglobin Concent 32.9 g/dl RDW Standard Deviation 50.1 fL RDW Coefficient of Variation 14.5 % Platelet Count 248 K/uL Mean Platelet Volume 8.8 fL Prothrombin Time 52.9 SECONDS Prothromb Time International Ratio 4.6 Sodium Level 140 mmol/L Potassium Level 3.7 mmol/L Chloride Level 100 mmol/L Carbon Dioxide Level 38 mmol/L Anion Gap 2.0 mmol/L Blood Urea Nitrogen 24 mg/dl Creatinine 0.89 mg/dl Est Creatinine Clear Calc Drug Dose 73.6 ml/min Estimated GFR () 81.6 Estimated GFR (Non- 70.4 BUN/Creatinine Ratio 27.2 Random Glucose 121 mg/dl Calcium Level 8.5 mg/dl Test 05/07/17 11:08 Bedside Glucose 180 mg/dl Assessment & Plan Acute decompensated Diastolic heart Failure Present on admission with pressure like chest pain associated with worsening SOB on exertion -- CXR showed Cardiomegaly with evidence of congestive failure and interstitial edema repeat echo: -- Conclusions -- * Ejection Fraction = 65-70%. * There is mild concentric left ventricular hypertrophy. * The left ventricular wall motion is normal. * The right ventricle is normal in size and function. * There is no pericardial effusion. -- evaluated by Public [employer] Dr. Quinonez patient placed on Lasix 40mg IV BID with good diuresis patient reports significant improvement of symptoms -- discussed with Public [employer] Coach Dr. Quinonez recommend Lasix 20mg PO BID with Potassium -- continue fluid and salt restriction,. home health services ff up with PCP in 3-5 days ff up with Public [employer] Coach in 1-2 weeks Hx P. Afib Rate is controlled on NSR HUSSEIN and ablation done in her last admission Continue metoprolol 100mg BID INR 4.6 on day of discharge 05/07/17 -- hold coumadin will inform [facility] Clinic for follow up in 2 days DM Type Hba1c 9.8 -- continue usual regimen -- outpatient close follow up CHRONIC HYPOXIC RESPIRATORY FAILURE / COPD Continue prednisone taper dose Continue supplemental O2 and Duoneb treatment Clinically improved DARIUS BIPAP HS while hospitalized; needs outpatient sleep study HYPERTENSION Stable continue home meds HYPOTHYROIDISM Continue levothyroxine CHRONIC PAIN Continue Fentanyl patch RECENT RLE FRACTURE Ortho was consulted in the last admission recommended to continue conservative management Weightbearing using a walker and weightbearing as tolerated in good diabetic shoes. Follow-up in 4-6 weeks with repeat x-rays AP and lateral right tib-fib and 3 views right foot BIPOLAR DISORDER Continue home medications CODE STATUS FULL CODE (as per discussion with pt not to prolong her life if prognostic is poor) DISPOSITION ff up with PCP in 3-5 days ff up with Public [employer] Coach in 1-2 weeks Consultants: cardiology Current Inpatient Medications: Current Inpatient Medications Medications (Trade) Dose Ordered Sig/Artemio Route Start Time Stop Time Status Last Admin Dose Admin Nitroglycerin (Nitrostat Tab) 0.4 mg UD PRN SL 05/05/17 18:45 06/04/17 18:44 Polyethylene (Miralax Powder Packet) 17 gm DAILY PRN PO 05/05/17 18:45 06/04/17 18:44 Amitriptyline HCl (Elavil Tab) 50 mg HS PO 05/05/17 21:00 06/04/17 20:59 05/06/17 20:00 50 MG Atorvastatin Calcium (Lipitor Tab) 40 mg HS PO 05/05/17 21:00 06/04/17 20:59 05/06/17 20:00 40 MG Cetirizine HCl (zyrTEC TAB) 10 mg QAM PO 05/06/17 09:00 06/05/17 08:59 05/07/17 10:04 10 MG Salmeterol Xinafoate/ Fluticasone (Advair Diskus 250/50 Inh) 1 puff BID INH 05/05/17 21:00 06/04/17 20:59 05/07/17 10:00 1 PUFF Gabapentin (Neurontin Tab) 800 mg TID PO 05/05/17 21:00 06/04/17 20:59 05/07/17 10:03 800 MG Guaifenesin (Organidin Nr Tab) 200 mg Q8H PRN PO 05/05/17 19:30 06/04/17 19:29 05/06/17 10:00 200 MG Insulin Glargine (Lantus Solostar Pen) 16 units BID SC 05/05/17 21:00 06/04/17 20:59 05/07/17 10:10 16 UNITS Levothyroxine Sodium (Synthroid Tab) 50 mcg DAILYBB PO 05/06/17 06:00 06/05/17 06:59 05/07/17 06:48 50 MCG Lorazepam (Ativan Tab) 0.5 mg DAILY PRN PO 05/05/17 19:30 06/04/17 19:29 Metoclopramide HCl (Reglan Tab) 5 mg TIDM PO 05/06/17 07:30 06/05/17 07:59 05/07/17 10:02 5 MG Metoprolol Tartrate (Lopressor Tab) 100 mg BID PO 05/05/17 21:00 06/04/17 20:59 05/07/17 10:02 100 MG Olanzapine (Zyprexa Tab) 2.5 mg HS PO 05/05/17 21:00 06/04/17 20:59 05/06/17 20:00 2.5 MG Pantoprazole Sodium (Protonix Tab) 40 mg DAILY PO 05/06/17 09:00 06/05/17 08:59 05/07/17 10:02 40 MG Tiotropium Raphine (Spiriva Handihaler Inhaler) 1 puff DAILY INH 05/06/17 09:00 06/05/17 08:59 05/07/17 10:01 1 PUFF Trazodone HCl (Desyrel Tab) 150 mg HS PO 05/05/17 21:00 06/04/17 20:59 05/06/17 20:00 150 MG Venlafaxine HCl (effeXOR EXTENDED REL CAP) 225 mg QAM PO 05/06/17 09:00 06/05/17 08:59 05/07/17 10:03 225 MG Amlodipine Besylate (Norvasc Tab) 10 mg QAM PO 05/06/17 09:00 06/05/17 08:59 05/07/17 10:04 10 MG Calcitriol (Rocaltrol Cap) 0.5 mcg MoWeFr@0900 PO 05/07/17 09:00 06/06/17 08:59 05/07/17 10:04 0.5 MCG Warfarin Sodium (Coumadin Tab) 7.5 mg MoTuWeFrSa@1600 PO 05/05/17 21:00 06/04/17 20:59 Future hold Albuterol/ Ipratropium (Duoneb) 3 ml QIDR INH 05/05/17 20:00 06/04/17 19:59 05/07/17 11:42 3 ML Insulin Aspart (novoLOG ASPART) SLIDING SCALE If C... ACHS SC 05/05/17 21:00 06/04/17 20:59 05/07/17 10:09 4 UNITS Glucose (Glucose 40% Gel) 15-30 GRAMS 15 GRAMS... UD PRN PO 05/05/17 19:45 06/04/17 19:44 Glucose (Glucose Chew Tab) 4-8 Tablets 4 Tabl... UD PRN PO 05/05/17 19:45 06/04/17 19:44 Dextrose (Dextrose 50% 50ML Syringe) 25-50ML OF 50% DW IV FOR... UD PRN IV 05/05/17 19:45 06/04/17 19:44 Glucagon (Glucagon Inj) 1 mg UD PRN SQ 05/05/17 19:45 06/04/17 19:44 Prednisone (PredniSONE TAB) 20 mg DAILY PO 05/06/17 09:00 06/04/17 19:29 05/07/17 10:02 20 MG Oxycodone HCl (Roxicodone Immediate Rel Tab) pain not relieved by tylenol hold for sedati... Q6H PRN PO 05/05/17 22:30 05/19/17 22:29 05/07/17 10:13 10 MG Nicotine (Nicoderm Cq 21MG Patch) 1 patch QAM TD 05/07/17 09:00 06/06/17 08:59 05/07/17 09:59 1 PATCH Miscellaneous (Remove Nicoderm Patch) 1 ea HS N/A 05/06/17 21:00 06/05/17 20:59 Furosemide 40 mg/ Syringe 4 ml @ 4 mls/min BID17 IV 05/06/17 17:00 06/05/17 16:59 05/07/17 09:59 4 MLS/MIN
[2017-05-07] MEDS ORDERED: POTA20TA16 PO (12:31)
[2017-05-07] MEDS ORDERED: LSX20 PO (12:31)
[2017-05-07] MEDS ORDERED: PRD20 PO (12:31)
--- NOTE | 2017-05-07 12:49 | Discharge Instructions ---
Discharge Instructions Date of Service May 07, 2017. Admission Reason for Admission: Chf Exacerbation Discharge Discharge Diagnosis / Problem: ACUTE EXACERBATION OF CONGESTIVE HEART FAILURE Discharge Goals Goal(s): Diagnostic testing, Therapeutic intervention Activity Recommendations Activity Limitations: as noted below (NO HEAVY EXERTION UNTIL RE-EVALUATED BY PRIMARY CARE PHYSICIAN) Lifting Limitations: until after follow-up appointment Exercise/Sports Limitations: until after follow-up appointment . Instructions / Follow-Up Instructions / Follow-Up PLEASE REVIEW YOUR NEW MEDICATION LIST AND FOLLOW INSTRUCTIONS CAREFULLY. HOLD COUMADIN FOR NOW UNTIL FURTHER INSTRUCTIONS FROM THE COUMADIN CLINIC. YOU WILL NEED REPEAT BLOODWORK FOR INR IN 2 DAYS. CALL YOUR PRIMARY CARE PHYSICIAN OR RETURN TO ER IMMEDIATELY IF WITH RECURRENCE OF SYMPTOMS, SHORTNESS OF BREATH, LEG SWELLING, BLEEDING. FOLLOW UP WITH DR. MCINTOSH AND COUMADIN CLINIC ON TUESDAY MAY 09, 2017 AT 10: 05 AM. Call your Primary Care doctor if any of the following symptoms or problems start or get worse: * Shortness of breath or difficulty breathing * Wake up at night short of breath * Chest pain * Cough * Swelling of your hands, feet, or legs * More fatigued or tired with your normal activity * Palpitations - sudden fast heart beats WEIGHT * Weigh yourself every morning after using the bathroom. * Use the same scale. * Wear the same amount of clothing. * Write your weight down on a chart. * Call your Primary Care doctor if you gain more than 2-3 pounds in 1-2 days. MEDICATIONS * Use this discharge instruction sheet for medication instructions. * Take your medications at the time your doctor ordered. * Do not skip a dose of your medicines. * If you miss a dose of medicine, take it as soon as possible, but DO NOT DOUBLE A DOSE. * Read your medicine information when you get home. * Know all of the side effects of your medicine. If in doubt, ask your pharmacist * Call your Primary Care doctor's office if you have any side effects. * Be sure all of your doctors know what medicine and herbs you take (including cold, flu, and herbal medicine). Take the following with you to your follow-up doctor appointments: * Weight Chart * Medication List * List of questions Do not drink excessive alcohol, beer or wine. Current Hospital Diet Patient's current hospital diet: Diabetes Type 2 Diet, AHA Diet (Heart Healthy) Discharge Diet Recommended Diet: Low Sodium Diet (2gm Na), Diabetes Type 2 Diet Fluid Restriction: 1500 ml (6 cups) Procedures Procedures Performed: Echocardiogram Pending Studies Studies pending at discharge: yes List of pending studies: Repeat INR and Potassium level on follow up with Primary Care Physician Laboratory Results Hemoglobin A1c Test 04/29/17 07:05 Range/Units Estimated Average Glucose 235 mg/dl Hemoglobin A1c 9.8 H 4.5-5.6 % Lipid Panel Test 04/21/17 06:21 Range/Units Triglycerides Level 73 0-150 mg/dl Cholesterol Level 131 0-200 mg/dl HDL Cholesterol 69 mg/dl Cholesterol/HDL Ratio 1.9 LDL Cholesterol, Calculated 47 mg/dl Medical Emergencies . Who to Call and When: Call 911 or go to the Emergency Room if: * If at any time you feel your situation is an emergency * You have tightness or pain in your chest that does not go away with rest or Nitroglycerin * You are very short of breath even with rest . Non-Emergent Contact Non-Emergency issues call your: Primary Care Provider, [employer] Call Non-Emergent contact if: you have a fever, you have any medication questions . . "Provider Documentation" section prepared by Abdelrahman Moreau. . VTE Core Measure Inpt VTE Proph given/why not?: Warfarin (Coumadin)
--- NOTE | 2017-05-07 12:55 | Discharge Summary ---
Discharge Summary Date of Service May 07, 2017. Discharge Summary Admission Date: May 05, 2017 at 18:37 Discharge Date: May 07, 2017 Principal Diagnosis: Acute decompensated Diastolic heart Failure Secondary Diagnoses/Problems: Please refer to hospital course below. Procedures: Echo: * -- Conclusions -- * Ejection Fraction = 65-70%. * There is mild concentric left ventricular hypertrophy. * The left ventricular wall motion is normal. * The right ventricle is normal in size and function. * There is no pericardial effusion. CXR: SINGLE VIEW CHEST CLINICAL HISTORY: Dyspnea. Atypical chest pain. FINDINGS: An AP, portable, upright chest radiograph is compared to study dated 05/01/2017. Correlation is made with chest CT dated 07/04/1715. The examination is degraded by portable technique and patient rotation. The heart is enlarged and there is atherosclerotic calcification of the thoracic ureter. There is evidence of previous mitral valve surgery. There is pulmonary vascular congestion and interstitial edema. No airspace consolidation or large pleural effusion is identified. Emphysema and chronic interstitial thickening are similar to previous. 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 The skeletal structures are osteopenic. The bony thorax is grossly intact. Surgical clips project over the right upper chest. IMPRESSION: 1. Cardiomegaly with evidence of congestive failure and interstitial edema. 2. Emphysema. No airspace consolidation or large pleural effusion is identified. 3. Herniation of the right upper lung is again noted and unchanged from prior studies. Consultations: cardiology Pending Studies/Follow-Up: CHECK INR AND POTASSIUM ON FOLLOW UP. PLEASE REFER TO HOSPITAL COURSE BELOW FOR FURTHER DETAILS. Medication Reconciliation New Medications: Potassium Ext Rel (Klor-Con) 20 Meq Tabcr 1 TAB PO DAILY for 30 Days, #30 TAB 1 Refill Changed Medications: Furosemide (Furosemide) 20 Mg Tab 20 MG PO BID for 30 Days, #60 TABS 1 Refill (Changed from: DAILY; Refills: ) Prednisone (Prednisone) 20 Mg Tab 20 MG PO UD for 6 Days, TAB (Changed from: take 20mg for 3 days, then 10mg for 3 days and stop) take 10mg for 3 days and stop Continued Medications: Amitriptyline HCl (Amitriptyline HCl) 50 Mg Tab 50 MG PO HS Amlodipine Besylate (Amlodipine Besylate) 10 Mg Tab 10 MG PO QAM Atorvastatin (Atorvastatin Calcium) 40 Mg Tab 40 MG PO HS Calcitriol (Calcitriol) 0.5 Mcg Cap 0.5 MCG PO 3XWK TAKE THIS MEDICATION EVERY FRIDAY,FRIDAY AND FRIDAY Cetirizine (Zyrtec) 10 Mg Tab 10 MG PO QAM, TAB Epinephrine (Epipen) 0.3 Mg/0.3 Ml Inj 0.3 MG IM UD PRN for ALLERGIC REACTION Fluticasone Prop/Salmeterol (Advair Diskus 250/50 60 Dose) 1 Ea Aerp 1 PUFF INH BID Gabapentin (Gabapentin) 800 Mg Tab 800 MG PO TID Guaifenesin (Organ-I Nr) 200 Mg Tab 200 MG PO Q8H PRN for Cough for 7 Days, #21 TAB Home O2 Therapy (Oxygen) Gas 3 LITERS NA CONTINOUS Insulin Aspart (Novolog Flexpen) 100 Units/Ml Inj 5 UNITS SC UD ADMINISTER THIS MEDICATION TWICE DAILY 15 TO 30 MINUTES BEFORE LUNCH AND DINNER. IF YOU DO NOT EAT ANYTHING, DO NOT TAKE THIS MEDICATION Insulin Glargine (Lantus Solostar) 100 Unit/Ml Inj 16 UNITS SC BID, PEN Ipratropium Zirconia (Ipratropium Zirconia) 0.5 Mg/2.5 Ml Nebu 1 VIAL NEB Q6H PRN for Shortness of Breath, ML Levalbuterol Hcl (Levalbuterol Hcl) 1.25 Mg/3 Ml Neb 1.25 MG NEB Q6H PRN for SOB/Wheezing Levothyroxine Sodium (Synthroid) 50 Mcg Tab 50 MCG PO QAM, TAB Lorazepam (Lorazepam) 0.5 Mg Tab 0.5 MG PO UD PRN for Anxiety/Agitation, TAB Metoclopramide Hcl (Reglan) 10 Mg Tab 5 MG PO TIDM, TAB Metoprolol Tartrate (Lopressor) (Lopressor) 100 Mg Tab 100 MG PO BID, TAB Multiple Vitamin (Multivitamin) 1 Tab Tab 1 TAB PO QAM, TAB Olanzapine (Olanzapine) 2.5 Mg Tab 2.5 MG PO HS Pantoprazole (Protonix) 40 Mg Tab 40 MG PO DAILY, TAB TAKE THIS MEDICATION ONCE DAILY 30 MINUTES BEFORE MEAL WITH PROTEIN Tiotropium Zirconia (Spiriva Handihaler) 30 Puff/540 Mcg Aerp 1 CAP INH DAILY, INHALER Trazodone Hcl (Trazodone) 50 Mg Tab 150 MG PO HS, TAB Venlafaxine Hcl (Effexor Extended Rel) 75 Mg Capcr 225 MG PO QAM Discontinued Medications: Warfarin Sodium (Warfarin Sodium) 5 Mg Tab 5 MG PO 2XWK, TAB TAKE 5 MG EVERY FRIDAY AND FRIDAY OR OTHERWISE DIRECTED TO TAKE BY ANTICOAGULATION CLINIC/MD Warfarin Sodium (Warfarin Sodium) 5 Mg Tab 7.5 MG PO 5XWK, TAB TAKE 7.5 MG EVERY FRIDAY,FRIDAY,FRIDAY,FRIDAY AND FRIDAY OR OTHERWISE DIRECTED TO TAKE BY ANTICOAGULATION CLINIC/MD Admission Information HPI (per Admitting provider): The patient is a 61 year old white female with a PMH of CHF, a-fib on coumadin, HTN and DM presents to the ED with c/o chest pain associated with shortness of breath. Pt was recently discharged from [facility] on 05/03 for Atrial Fib with RVR. He had a HUSSEIN and ablation done. Pt said that yesterday she woke up with SOB. she said that her sob was worsening with exertion. she said that she was drinking alot of water because her mouth was very dry. Pt said that today she develops chest pain. she said that she felt a pressure in her chest like someone sitting on her chest. Her chest pain was non radiating and constant. Pt said that she called her PCP and her PCP called the EMS for her to go to the ER. Pt said that her legs were very swelling. She said that she felt chills and diaphoresis. Pt said that she received IV lasix in the ER and now she feels better. Currently she has no chest pain. Physical Exam (per Admitting): General Appearance: WD/WN, no apparent distress Head: normocephalic, atraumatic Eyes: PERRL, EOMI ENT: hearing grossly normal Neck: supple Respiratory/Chest: no accessory muscle use, + crackles Cardiovascular: regular rate, rhythm Abdomen/GI: normal bowel sounds, non tender Back: no CVA tenderness Extremities/Musculoskelatal: no calf tenderness, + swelling Neurologic/Psych: no motor/sensory deficits, alert, oriented x 3 Skin: normal color, warm/dry Hospital Course Acute decompensated Diastolic heart Failure Present on admission with pressure like chest pain associated with worsening SOB on exertion -- CXR showed Cardiomegaly with evidence of congestive failure and interstitial edema repeat echo: -- Conclusions -- * Ejection Fraction = 65-70%. * There is mild concentric left ventricular hypertrophy. * The left ventricular wall motion is normal. * The right ventricle is normal in size and function. * There is no pericardial effusion. -- evaluated by [employer] Dr. Quinonez patient placed on Lasix 40mg IV BID with good diuresis patient reports significant improvement of symptoms -- discussed with [employer] Dr. Quinonez recommend Lasix 20mg PO BID with Potassium monitor volume status, crea and potassium level -- continue fluid and salt restriction,. home health services ff up with PCP in 3-5 days ff up with [employer] in 1-2 weeks Hx P. Afib, Supratherapeutic INR Rate is controlled on NSR HUSSEIN and ablation done in her last admission Continue metoprolol 100mg BID INR 4.6 on day of discharge 05/07/17 -- hold coumadin informed Coumadin Clinic for follow up in 2 days (after PCP appointment) DM Type Hba1c 9.8 -- continue usual regimen -- outpatient close follow up CHRONIC HYPOXIC RESPIRATORY FAILURE / COPD Continue prednisone taper dose Continue supplemental O2 and Duoneb treatment Clinically improved DARIUS BIPAP HS while hospitalized; needs outpatient sleep study HYPERTENSION Stable continue home meds HYPOTHYROIDISM Continue levothyroxine CHRONIC PAIN Continue Fentanyl patch RECENT RLE FRACTURE Ortho was consulted in the last admission recommended to continue conservative management Weightbearing using a walker and weightbearing as tolerated in good diabetic shoes. Follow-up in 4-6 weeks with repeat x-rays AP and lateral right tib-fib and 3 views right foot BIPOLAR DISORDER Continue home medications CKD 3 stable CODE STATUS FULL CODE (as per discussion with pt not to prolong her life if prognostic is poor) DISPOSITION ff up with PCP in 3-5 days ff up with [employer] in 1-2 weeks Total time spent on discharge = 40 minutes This includes examination of the patient, discharge planning, medication reconciliation, and communication with other providers. Discharge Instructions Discharge Instructions Date of Service May 07, 2017. Admission Reason for Admission: Chf Exacerbation Discharge Discharge Diagnosis / Problem: ACUTE EXACERBATION OF CONGESTIVE HEART FAILURE Discharge Goals Goal(s): Diagnostic testing, Therapeutic intervention Activity Recommendations Activity Limitations: as noted below (NO HEAVY EXERTION UNTIL RE-EVALUATED BY PRIMARY CARE PHYSICIAN) Lifting Limitations: until after follow-up appointment Exercise/Sports Limitations: until after follow-up appointment . Instructions / Follow-Up Instructions / Follow-Up PLEASE REVIEW YOUR NEW MEDICATION LIST AND FOLLOW INSTRUCTIONS CAREFULLY. HOLD COUMADIN FOR NOW UNTIL FURTHER INSTRUCTIONS FROM THE COUMADIN CLINIC. YOU WILL NEED REPEAT BLOODWORK FOR INR IN 2 DAYS. CALL YOUR PRIMARY CARE PHYSICIAN OR RETURN TO ER IMMEDIATELY IF WITH RECURRENCE OF SYMPTOMS, SHORTNESS OF BREATH, LEG SWELLING, BLEEDING. FOLLOW UP WITH DR. MCINTOSH AND COUMADIN CLINIC ON TUESDAY MAY 09, 2017 AT 10: 05 AM. Call your Primary Care doctor if any of the following symptoms or problems start or get worse: * Shortness of breath or difficulty breathing * Wake up at night short of breath * Chest pain * Cough * Swelling of your hands, feet, or legs * More fatigued or tired with your normal activity * Palpitations - sudden fast heart beats WEIGHT * Weigh yourself every morning after using the bathroom. * Use the same scale. * Wear the same amount of clothing. * Write your weight down on a chart. * Call your Primary Care doctor if you gain more than 2-3 pounds in 1-2 days. MEDICATIONS * Use this discharge instruction sheet for medication instructions. * Take your medications at the time your doctor ordered. * Do not skip a dose of your medicines. * If you miss a dose of medicine, take it as soon as possible, but DO NOT DOUBLE A DOSE. * Read your medicine information when you get home. * Know all of the side effects of your medicine. If in doubt, ask your pharmacist * Call your Primary Care doctor's office if you have any side effects. * Be sure all of your doctors know what medicine and herbs you take (including cold, flu, and herbal medicine). Take the following with you to your follow-up doctor appointments: * Weight Chart * Medication List * List of questions Do not drink excessive alcohol, beer or wine. Current Hospital Diet Patient's current hospital diet: Diabetes Type 2 Diet, AHA Diet (Heart Healthy) Discharge Diet Recommended Diet: Low Sodium Diet (2gm Na), Diabetes Type 2 Diet Fluid Restriction: 1500 ml (6 cups) Procedures Procedures Performed: Echocardiogram Pending Studies Studies pending at discharge: yes List of pending studies: Repeat INR and Potassium level on follow up with Primary Care Physician Laboratory Results Hemoglobin A1c Test 04/29/17 07:05 Range/Units Estimated Average Glucose 235 mg/dl Hemoglobin A1c 9.8 H 4.5-5.6 % Lipid Panel Test 04/21/17 06:21 Range/Units Triglycerides Level 73 0-150 mg/dl Cholesterol Level 131 0-200 mg/dl HDL Cholesterol 69 mg/dl Cholesterol/HDL Ratio 1.9 LDL Cholesterol, Calculated 47 mg/dl Medical Emergencies . Who to Call and When: Call 911 or go to the Emergency Room if: * If at any time you feel your situation is an emergency * You have tightness or pain in your chest that does not go away with rest or Nitroglycerin * You are very short of breath even with rest . Non-Emergent Contact Non-Emergency issues call your: Primary Care Provider, [employer] Call Non-Emergent contact if: you have a fever, you have any medication questions . . "Provider Documentation" section prepared by Abdelrahman Moreau. . VTE Core Measure Inpt VTE Proph given/why not?: Warfarin (Coumadin)
--- NOTE | 2017-05-07 13:25 | Cardiology Follow-Up ---
Subjective General Date of Service: May 07, 2017. Pt evaluation today including: conversation w/ patient, conversation w/ family , physical exam, chart review, lab review, review of studies, review of inpatient medication list History of Present Illness The patient is a 61 year old female seen in follow-up. Feeling better from a cardiovascular perspective. Chronic lower extremity edema unchanged. Respiratory status has improved. Fluid balance negative approximate 4 L. Requesting discharge if possible. Allergies Coded Allergies: BEE STING (Verified Allergy, Severe, SWELLING, 04/20/17) Lisinopril (Verified Allergy, Intermediate, FACE SWELLING, 04/20/17) Potato (Verified Allergy, Intermediate, BBQ chips - facial swelling, ) Metronidazole (Verified Allergy, Mild, FACE SWELLING, 04/20/17) [place] (Verified Allergy, Mild, HIVES, 04/20/17) Alprazolam (Verified Allergy, Unknown, RED FACE, FACE SWELLING, 04/20/17) Lactose (Verified Adverse Reaction, Intermediate, VOMTING DIARRHEA ABDOMINAL PAIN, 04/20/17) Prednisone (Verified Adverse Reaction, Mild, unknown, 04/20/17) Colesevelam (Verified Adverse Reaction, Unknown, unknown, 04/20/17) [place] (Verified Adverse Reaction, Unknown, jitters, 04/20/17) Social History Smoking Status: Current Every Day Smoker Hx Tobacco Use In Past Year?: Yes Hx Alcohol Use - Type And Amou: No Hx Substance Use - Type And Am: Yes (pain and anxiety medication) Problem List Medical Problems: (1) Acute gastroenteritis Status: Acute (2) Altered mental status Status: Acute (3) Atrial flutter with rapid ventricular response Status: Acute (4) Back pain Status: Acute (5) Bradycardia Status: Acute (6) Bronchitis Status: Acute (7) Bronchitis Status: Acute (8) CAP (community acquired pneumonia) Status: Acute (9) Cellulitis Status: Acute (10) Cervical radiculopathy Status: Acute (11) Chest pain Status: Acute (12) Chest pain of unknown etiology Status: Acute (13) Chest wall pain Status: Acute (14) Chest wall pain Status: Acute (15) CHF exacerbation Status: Acute (16) CHF exacerbation Status: Acute (17) Chronic right shoulder pain Status: Acute (18) Congestive heart failure Status: Acute (19) Congestive heart failure Status: Acute (20) COPD exacerbation Status: Acute (21) COPD exacerbation Status: Acute (22) COPD exacerbation Status: Acute (23) Cough Status: Acute (24) Dehydration Status: Acute (25) Depressed Status: Acute (26) Diarrhea Status: Acute (27) Diarrhea Status: Acute (28) Diarrhea Status: Acute (29) Diffuse abdominal pain Status: Acute (30) Diffuse abdominal pain Status: Acute (31) Dysuria Status: Acute (32) Elevated troponin Status: Acute (33) Erythema of face Status: Acute (34) Fatigue Status: Acute (35) Fluid overload Status: Acute (36) Generalized weakness Status: Acute (37) Headache Status: Acute (38) History of COPD Status: Acute (39) Hyperglycemia Status: Acute (40) Hypoxia Status: Acute (41) Leukocytosis Status: Acute (42) Lower back pain Status: Acute (43) Pelvic cyst Status: Acute (44) PNA (pneumonia) Status: Acute (45) Rash Status: Acute (46) Request for narcotic pain medication Status: Acute (47) Respiratory failure Status: Acute (48) Right fibular fracture Status: Acute (49) Right leg pain Status: Acute (50) Shortness of breath Status: Acute (51) Shortness of breath Status: Acute (52) Tobacco use Status: Acute (53) Urinary tract infection Status: Acute (54) UTI (urinary tract infection) Status: Acute (55) Weakness Status: Acute (56) Wheezing Status: Acute Review of Systems Respiratory: + dyspnea on exertion, No cough, No sputum, No wheezing, No shortness of breath, No dyspnea at rest, No hemoptysis Cardiac: No chest pain, No orthopnea, No PND, No edema, No claudication, No palpitations Physical Exam Vital Signs Last Vital Signs Documentation Date Time Temp Pulse Resp B/P (MAP) Pulse Ox O2 Delivery O2 Flow Rate FiO2 05/07/17 11:42 68 16 98 Nasal Cannula 3.0 05/07/17 11:21 36.6 136/81 (99) Physical Exam Constitutional: General Apperance: overweight Level of Distress: chronically ill Ambulation: ambulating normally Head: normocephalic, atraumatic Neck: supple, trachea midline Lungs: Auscultation: no wheezing, no rales/crackles, rhonchi (scattered rhonchi, clears with cough) Cardiovascular: Heart Auscultation: RRR, normal S1, normal S2, no murmurs, no rubs, no gallops Peripheral Pulses: Radial Pulse: normal on the left, normal on the right Abdomen: Bowel Sounds: normal Inspection & Palpation: soft, non-distended, no tenderness, guarding & rebound Extremities: no cyanosis, no clubbing, no ulcers, edema (+1 bilateral pedal edema R>L) Neurologic: Gait & Station: pertinent finding (no focal deficit) Cranial Nerves: grossly intact Assessment and Plan Assessment and Plan FINAL IMPRESSION: 1. Acute decompensated heart failure secondary to excessive fluid intake and diastolic dysfunction. - Resolving; I/O negative 4 L since admission 2. Paroxysmal atrial flutter status post recent ablation -- no recurrence 3. Supratherapeutic INR - INR trending upward 4. Chronic respiratory failure/hypoxemia secondary to underlying severe chronic obstructive pulmonary disease and active tobacco abuse. 5. Obstructive sleep apnea, on BiPAP. 6. Hypertension -- controlled. 7. History of mitral valve fibroelastoma, status post repair. PLAN AND RECOMMENDATIONS: Discontinue IV Lasix. Transition to oral Lasix 20 mg twice daily. Add potassium supplementation. Hold Coumadin. Repeat INR in 2 days via the anticoagulation clinic. No further inpatient cardiac testing or intervention at this time. I will arrange for outpatient cardiology follow-up. Laboratory Results Last 24 Hours Test 05/06/17 16:32 05/06/17 20:03 05/07/17 06:01 05/07/17 07:01 Bedside Glucose 261 mg/dl 350 mg/dl 108 mg/dl White Blood Count 6.36 K/uL Red Blood Count 3.32 M/uL Hemoglobin 10.4 g/dL Hematocrit 31.6 % Mean Corpuscular Volume 95.2 fL Mean Corpuscular Hemoglobin 31.3 pg Mean Corpuscular Hemoglobin Concent 32.9 g/dl RDW Standard Deviation 50.1 fL RDW Coefficient of Variation 14.5 % Platelet Count 248 K/uL Mean Platelet Volume 8.8 fL Prothrombin Time 52.9 SECONDS Prothromb Time International Ratio 4.6 Sodium Level 140 mmol/L Potassium Level 3.7 mmol/L Chloride Level 100 mmol/L Carbon Dioxide Level 38 mmol/L Anion Gap 2.0 mmol/L Blood Urea Nitrogen 24 mg/dl Creatinine 0.89 mg/dl Est Creatinine Clear Calc Drug Dose 73.6 ml/min Estimated GFR () 81.6 Estimated GFR (Non- 70.4 BUN/Creatinine Ratio 27.2 Random Glucose 121 mg/dl Calcium Level 8.5 mg/dl Test 05/07/17 11:08 Bedside Glucose 180 mg/dl
[2017-05-08] MEDS ORDERED: WARFARIN SOD 5 MG TAB PO SCH (16:00)
== END 2017-05-07 15:05 | disposition home health service (06) | DRG 291 ==
LOC: EDBD 15:02 → C.EDC 15:03 → C.2T 18:37 → ENRESERV 18:53
PROVIDERS: ADMIT Internal Medicine; ATTEND Internal Medicine
DX: I13.0 Hypertensive heart and chronic kidney disease with heart failure and stage 1 through stage 4 chronic kidney disease, or unspecified chronic kidney disease (principal); I50.31 Acute diastolic (congestive) heart failure; J96.11 Chronic respiratory failure with hypoxia; R79.1 Abnormal coagulation profile; I48.0 Paroxysmal atrial fibrillation; E11.22 Type 2 diabetes mellitus with diabetic chronic kidney disease; N18.3 Chronic kidney disease, stage 3 (moderate); J44.9 Chronic obstructive pulmonary disease, unspecified; G47.33 Obstructive sleep apnea (adult) (pediatric); E03.9 Hypothyroidism, unspecified; K21.9 Gastro-esophageal reflux disease without esophagitis; E78.5 Hyperlipidemia, unspecified; E11.43 Type 2 diabetes mellitus with diabetic autonomic (poly)neuropathy; K31.84 Gastroparesis; G89.29 Other chronic pain; S82.201D Unspecified fracture of shaft of right tibia, subsequent encounter for closed fracture with routine healing; S82.401D Unspecified fracture of shaft of right fibula, subsequent encounter for closed fracture with routine healing; X58.XXXD Exposure to other specified factors, subsequent encounter; M19.90 Unspecified osteoarthritis, unspecified site; F31.9 Bipolar disorder, unspecified; F17.200 Nicotine dependence, unspecified, uncomplicated; E66.9 Obesity, unspecified; Z68.34 Body mass index [BMI] 34.0-34.9, adult; Z99.81 Dependence on supplemental oxygen; Z86.718 Personal history of other venous thrombosis and embolism; Z86.73 Personal history of transient ischemic attack (TIA), and cerebral infarction without residual deficits; Z79.51 Long term (current) use of inhaled steroids; Z79.4 Long term (current) use of insulin; Z79.52 Long term (current) use of systemic steroids; Z79.1 Long term (current) use of non-steroidal anti-inflammatories (NSAID); Z79.891 Long term (current) use of opiate analgesic

== ENCOUNTER → 2017-06-04 | Outpatient (CLI) | payer OTHER ==
[~2017-06-04] MED LIST changes: +ADVIN25/60 INH; +AMT/50 PO; -ATRINS INH; +ATRINS NEB; +ATV5X PO; +CETI10TA84 PO; +EFFSR75 PO; +EPP3/2 IM; -FNTTP50 TOP; -FURO-85 PO; +LEVA1.258 NEB; +LPT40 PO; +LSX20 PO; +METO100T14 PO; +METO1TAB55 PO; +MULTTAB58 PO; +NRN800 PO; +NRV/10 PO; +NVLGI/PEN SC; -NVLGIPEN SC; +OXGN; +PANT40TA PO; +POTA20TA16 PO; -PRT/40 PO; +SPRIN/30 INH; +TRAZ50TA35 PO; -XPNINS1255 INH; +ZYP25 PO
== END | disposition home or self-care (01) ==
LOC: C.RDSM 12:12
PROVIDERS: ATTEND Orthopaedic Surgery Sports Medicine
DX: S92.324D Nondisplaced fracture of second metatarsal bone, right foot, subsequent encounter for fracture with routine healing (principal); S82.454D Nondisplaced comminuted fracture of shaft of right fibula, subsequent encounter for closed fracture with routine healing; X58.XXXD Exposure to other specified factors, subsequent encounter

== ENCOUNTER → 2017-07-30 | Outpatient (CLI) | payer OTHER ==
[~2017-07-30] MED LIST changes: +CALC0.5C PO; -CALC0.5C17 PO; +FURO-85 PO; -GUAI1TAB68 PO; -LSX20 PO; -PRD20 PO
== END | disposition home or self-care (01) ==
LOC: C.RDSM 11:22
PROVIDERS: ATTEND Orthopaedic Surgery Sports Medicine
DX: Z09 Encounter for follow-up examination after completed treatment for conditions other than malignant neoplasm (principal); M79.671 Pain in right foot; M79.605 Pain in left leg

== ENCOUNTER 2017-08-17 20:59 | Inpatient (IN) | payer OTHER ==
[~2017-08-17] VITALS: Ht 162.6 cm; Wt 89.4 kg
[~2017-08-17 20:59] MED LIST changes: -CETI10TA84 PO; -EPP3/2 IM; -MULTTAB58 PO; -SPRIN/30 INH
[2017-08-17] MEDS ORDERED: ALBUT/IPRATROP 3MG/0.5MG NEB 3 ML VIAL INH STA (21:20)
--- NOTE | 2017-08-17 21:34 | EMERGENCY ROOM VISIT NOTE ---
History Report prepared by [place]: Prasanna Ramsey Under the Supervision of: Dr. Jame Titus M.D. First contact with patient: 21:13 Chief Complaint: CHEST PAIN Stated Complaint: CHEST PAIN Nursing Triage Summary: Pt arrived via [facility] from home. Per EMS, pt reports CP that started at 0600 today. Pain is described as a "weight" on the chest. Pain 9/10. Non-radiating. Worse with deep inspiration. Some associated SOB. Reports cough with yellow sputum. Pt wears 3L at home all the time. Lungs are diminished bilaterally with rhonci and expiratory wheezes. History of Present Illness The patient is a 61 year old female who presents to the Emergency Room with complaints of constant chest pain beginning last night. The patient states that her symptoms were worse this morning than they were last night. She notes that her pain stays in the center of her chest and worsens when she walks and breathes. She reports that she took an oxycodone with no relief of her symptoms. She also complains of a cough, SOB, diaphoresis, nausea, and diarrhea. She notes that her cough has been intermittent for the past 2 weeks and has been occasionally productive. She notes that she had diarrhea for the past 3 days but had normal stool today. She reports that she typically wears 3L of oxygen at night, but states that she sometimes wears less. She rates her pain as an 8/10. She has a history of pneumonia and CHF, but does not have a history of MN. She notes that she has a nebulizer at home and uses an inhaler but has not had a breathing treatment in a long time. Source of History: patient Onset: last night Position: chest Symptom Intensity: 8/10 Timing: constant Modifying Factors (Worsening): breathing, movement Associated Symptoms: + diaphoresis, + cough, + SOB, + nausea, + diarrhea Review of Systems See HPI for pertinent positives & negatives. A total of 10 systems reviewed and were otherwise negative. Past Medical & Surgical Medical Problems: (1) Acute electrocardiogram changes (2) Asthma (3) Atrial fibrillation (4) Bipolar disorder (5) C. difficile colitis (6) CHF (congestive heart failure) (7) Chronic abdominal pain (8) Chronic cor pulmonale (9) Chronic pain (10) Chronic respiratory failure (11) COPD with exacerbation (12) COPD, severe (13) Cor pulmonale (chronic) (14) Depression (15) DM type 2 (diabetes mellitus, type 2) (16) DVT (deep venous thrombosis) (17) Gastroparesis (18) GERD (gastroesophageal reflux disease) (19) History of ear infection (20) HTN (hypertension) (21) Hypokalemia (22) Hypothyroidism (23) [place] toxicity (24) DARIUS on CPAP (25) Osteoarthritis (26) PAF (paroxysmal atrial fibrillation) (27) Pneumonia Surgical Problems: (1) H/O: hysterectomy (2) Hx of appendectomy (3) Hx of cholecystectomy (4) Hx of lumpectomy (5) Hx of mitral valve repair (6) Hx of tubal ligation (7) Hx of umbilical hernia repair Family History Diabetes mellitus MOTHER FH: Crohn's disease SISTER Hypertension MOTHER Social History Smoking Status: Current Every Day Smoker Alcohol Use: none Drug Use: none Marital Status: Housing Status: lives with significant other Occupation Status: disabled Current/Historical Medications Scheduled Amitriptyline HCl (Amitriptyline HCl), 50 MG PO HS Amlodipine Besylate (Amlodipine Besylate), 10 MG PO QAM Atorvastatin (Atorvastatin Calcium), 40 MG PO HS Calcitriol (Calcitriol), 0.5 MCG PO 3XWK Cetirizine (Zyrtec), 10 MG PO QAM Fentanyl (Duragesic), 50 MCG TOP [id number] Fluticasone Prop/Salmeterol (Advair Diskus 250/50 60 Dose), 1 PUFF INH BID Furosemide (Lasix), 20 MG PO BID Gabapentin (Gabapentin), 800 MG PO TID Home O2 Therapy (Oxygen), 3 LITERS NA CONTINOUS Insulin Glargine (Lantus Solostar), 16 UNITS SC BID Levothyroxine Sodium (Synthroid), 50 MCG PO QAM Metoclopramide Hcl (Reglan), 5 MG PO TIDM Metoprolol Tartrate (Lopressor) (Lopressor), 100 MG PO BID Multiple Vitamin (Multivitamin), 1 TAB PO QAM Olanzapine (Olanzapine), 2.5 MG PO HS Pantoprazole (Protonix), 40 MG PO DAILY Potassium Ext Rel (Klor-Con), 20 MEQ PO DAILY Tiotropium [place] (Spiriva Handihaler), 1 CAP INH DAILY Trazodone Hcl (Trazodone), 150 MG PO HS Venlafaxine Hcl (Effexor Extended Rel), 225 MG PO QAM Scheduled PRN Epinephrine (Epipen), 0.3 MG IM UD PRN for ALLERGIC REACTION Ipratropium [place] (Ipratropium [place]), 1 VIAL NEB Q6H PRN for Shortness of Breath Levalbuterol Hcl (Levalbuterol Hcl), 1.25 MG NEB Q6H PRN for SOB/Wheezing Lorazepam (Lorazepam), 0.5 MG PO UD PRN for Anxiety/Agitation Allergies Coded Allergies: BEE STING (Verified Allergy, Severe, SWELLING, 04/20/17) Lisinopril (Verified Allergy, Intermediate, FACE SWELLING, 04/20/17) Potato (Verified Allergy, Intermediate, BBQ chips - facial swelling, ) Metronidazole (Verified Allergy, Mild, FACE SWELLING, 04/20/17) [place] (Verified Allergy, Mild, HIVES, 04/20/17) Alprazolam (Verified Allergy, Unknown, RED FACE, FACE SWELLING, 04/20/17) Lactose (Verified Adverse Reaction, Intermediate, VOMTING DIARRHEA ABDOMINAL PAIN, 04/20/17) Prednisone (Verified Adverse Reaction, Mild, unknown, 04/20/17) Colesevelam (Verified Adverse Reaction, Unknown, unknown, 04/20/17) [place] (Verified Adverse Reaction, Unknown, jitters, 04/20/17) Physical Exam Vital Signs Date Time Temp Pulse Resp B/P (MAP) Pulse Ox O2 Delivery O2 Flow Rate FiO2 08/17/17 22:00 130/73 08/17/17 21:59 95 23 100 Nasal Cannula 3.0 08/17/17 21:52 146/76 08/17/17 21:05 89 08/17/17 21:02 160/116 08/17/17 20:59 95 Nasal Cannula 3.0 08/17/17 20:59 37.3 93 23 160/116 95 Room Air 08/17/17 20:59 95 Nasal Cannula 3.0 08/17/17 20:59 95 Nasal Cannula 3.0 Physical Exam GENERAL: Patient is in no acute distress. HEENT: No acute trauma, normocephalic atraumatic, mucous membranes moist, no nasal congestion, no scleral icterus. NECK: No stridor, no adenopathy, no meningismus, trachea is midline. LUNGS: Diminished breath sounds bilaterally, breath sounds are equal, crackles throughout but mostly on left. HEART: Subtle systolic murmur, extra beats occasionally heart, rhythm somewhat irregular, normal rate. ABDOMEN: Soft, nontender, bowel sounds positive, no hernias, no peritonitis. EXTREMITIES: No cyanosis, full range of motion of all the joints without pain or difficulty, no signs for acute trauma. Mild bilateral pedal edema. NEUROLOGIC: Oriented x 3, no acute motor or sensory deficits, no focal weakness. SKIN: No rash, no jaundice, no diaphoresis. Medical Decision & Procedures ER Provider Diagnostic Interpretation: Radiology results as stated below per my review and radiologist interpretation: SINGLE VIEW CHEST FINDINGS: An AP, portable, upright chest radiograph is compared to study dated 05/06/2017. Correlation is made with chest CT dated 07/04/1715. The examination is degraded by portable technique and patient rotation. The heart is enlarged and there is atherosclerotic calcification of the thoracic aorta. There is evidence of previous mitral valve surgery. There is pulmonary vascular congestion and interstitial edema. No focal airspace consolidation or large pleural effusion is identified. Emphysema and chronic interstitial thickening are similar to previous. 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 The skeletal structures are osteopenic. The bony thorax is grossly intact. Surgical clips project over the right upper chest.. IMPRESSION: 1. Cardiomegaly with evidence of congestive failure and interstitial edema. 2. Emphysema. No airspace consolidation or large pleural effusion is identified. Electronically signed by: Jame Batres M.D. 08/17/2017 10:18 PM Laboratory Results 08/17/17 21:30 08/17/17 21:30 Test 08/17/17 21:30 08/17/17 23:14 Red Blood Count 4.20 M/uL (4.2-5.4) Mean Corpuscular Volume 91.4 fL (80-100) Mean Corpuscular Hemoglobin 29.5 pg (25-34) Mean Corpuscular Hemoglobin Concent 32.3 g/dl (32-36) RDW Standard Deviation 48.9 fL (36.4-46.3) RDW Coefficient of Variation 14.6 % (11.5-14.5) Mean Platelet Volume 10.1 fL (7.4-10.4) Prothrombin Time 17.6 SECONDS (9.0-12.0) Prothromb Time International Ratio 1.6 (0.9-1.1) Activated Partial Thromboplast Time 35.9 SECONDS (21.0-31.0) Partial Thromboplastin Ratio 1.4 Anion Gap 3.0 mmol/L (3-11) Est Creatinine Clear Calc Drug Dose 62.6 ml/min Estimated GFR () 66.1 Estimated GFR (Non- 57.0 BUN/Creatinine Ratio 11.1 (10-20) Calcium Level 8.9 mg/dl (8.5-10.1) Magnesium Level 2.1 mg/dl (1.8-2.4) Total Bilirubin 0.2 mg/dl (0.2-1) Aspartate Amino Transf (AST/SGOT) 21 U/L (15-37) Alanine Aminotransferase (ALT/SGPT) 36 U/L (12-78) Alkaline Phosphatase 96 U/L (45-117) Total Creatine Kinase 184 U/L (26-192) Creatine Kinase MB 1.7 ng/ml (0.5-3.6) Creatine Kinase MB Ratio 0.9 (0-3.0) Troponin I < 0.015 ng/ml (0-0.045) Pro-B-Type Natriuretic Peptide 1907 pg/ml (0-900) Total Protein 7.0 gm/dl (6.4-8.2) Albumin 3.1 gm/dl (3.4-5.0) Globulin 3.9 gm/dl (2.5-4.0) Albumin/Globulin Ratio 0.8 (0.9-2) Laboratory results reviewed by me. Medications Administered Medications (Trade) Dose Ordered Sig/Artemio Route Start Time Stop Time Status Last Admin Dose Admin Albuterol/ Ipratropium (Duoneb) 3 ml NOW STAT INH 08/17/17 21:20 08/17/17 21:23 DC 08/17/17 22:08 3 ML Furosemide (Lasix Inj) 40 mg NOW STAT IV 08/17/17 22:29 08/17/17 22:31 DC 08/17/17 22:41 40 MG ECG Indication: chest pain Rate (beats per minute): 86 Rhythm: sinus rhythm Findings: PVC, RBBB, other (artifact present, no obvious ischemia ) ED Course 2115: The patient was evaluated in room A3. A complete history and physical exam was performed. 2119: Duoneb 3ml INH 2228: Lasix Inj 40mg IV 2243: I reevaluated and updated the patient. 2249: Upon reexamination the patient is stable. I discussed results and treatment plan with the patient. She verbalizes agreement and understanding. I spoke with Kandy Waters. We discussed the patient's results and findings. The patient will be evaluated for further management. Medical Decision Differential diagnoses include: pneumonia, bronchitis, CHF, musculoskeletal pain , pneumothorax, anemia, MN, and electrolyte imbalance. There is a mild leukocytosis which could be consistent with infection or just the stress of her situation. No concerning anemia. No significant electrolyte abnormality, kidney failure or hepatitis. INR is elevated at 1.6. BNP is elevated consistent with CHF and fluid overload. Chest x-ray does show CHF, no obvious pneumonia, no pneumothorax. EKG shows a sinus rhythm with a PVC, there is a right bundle branch block present. No acute ischemia. Cardiac enzyme testing times one is not consistent with acute cardiac injury. The patient was given a DuoNeb, she received IV Lasix. She is comfortable as long as she is still. Her shortness of breath worsens with exertion or activity. Given the patient's findings, given the heart failure and dyspnea, given her past history, I do think a hospital stay for diuresis is required. In regard to the patient's chest pain, it does seem reproducible and actually may be musculoskeletal. I did speak to the patient and case management. The on -call hospitalist was consulted. Medication Reconcilliation Current Medication List: was personally reviewed by me Blood Pressure Screening Patient's blood pressure: Elevated blood pressure Blood pressure disposition: Elevated BP felt to be situational Consults Time Called: [phone] Consulting Physician: Kandy Waters Returned Call: [phone] Discussed the patient's case. The patient will be evaluated for further management. Impression Primary Impression: Precordial chest pain Additional Impressions: SOB (shortness of breath) CHF (congestive heart failure) Scribe Attestation The scribe's documentation has been prepared under my direction and personally reviewed by me in its entirety. I confirm that the note above accurately reflects all work, treatment, procedures, and medical decision making performed by me. Departure Information Dispostion Being Evaluated By Hospitalist Referrals No Doctor, Assigned (PCP) Patient Instructions My [facility] Problem Qualifiers
[2017-08-17 22:03] LABS: HEMATOCRIT 38.4 % (37-47); MEAN CELL VOLUME 91.4 fL (80-100); MEAN CORPUSCULAR HEMOGLOBIN 29.5 pg (25-34); MEAN CORPUSCULAR HGB CONC 32.3 g/dl (32-36); MEAN PLATELET VOLUME 10.1 fL (7.4-10.4); PLATELET COUNT 228 K/uL (130-400); WHITE BLOOD COUNT 12.83 K/uL (4.8-10.8)
[2017-08-17] MEDS ORDERED: SPRIN/30 INH (22:04)
[2017-08-17 22:14] LABS: INR 1.6 (0.9-1.1); PARTIAL THROMBOPLASTIN RATIO 1.4; PROTHROMBIN TIME (PATIENT) 17.6 SECONDS (9.0-12.0)
[2017-08-17] MEDS ORDERED: FNTTP50 TOP (22:15)
--- NOTE | 2017-08-17 22:19 | DIAGNOSTIC IMAGING REPORT ---
SINGLE VIEW CHEST CLINICAL HISTORY: Atypical chest pain. FINDINGS: An AP, portable, upright chest radiograph is compared to study dated 05/06/2017. Correlation is made with chest CT dated 07/04/1715. The examination is degraded by portable technique and patient rotation. The heart is enlarged and there is atherosclerotic calcification of the thoracic aorta. There is evidence of previous mitral valve surgery. There is pulmonary vascular congestion and interstitial edema. No focal airspace consolidation or large pleural effusion is identified. Emphysema and chronic interstitial thickening are similar to previous. 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 The skeletal structures are osteopenic. The bony thorax is grossly intact. Surgical clips project over the right upper chest.. IMPRESSION: 1. Cardiomegaly with evidence of congestive failure and interstitial edema. 2. Emphysema. No airspace consolidation or large pleural effusion is identified. Electronically signed by: Jame Batres M.D. 08/17/2017 10:18 PM Dictated Date/Time: 08/17/2017 10:17 PM
[2017-08-17 22:24] LABS: ALT/SGPT 36 U/L (12-78); BLOOD UREA NITROGEN 12 mg/dl (7-18); BUN/CREATININE RATIO 11.1 (10-20); CALCIUM 8.9 mg/dl (8.5-10.1); CARBON DIOXIDE 35 mmol/L (21-32); CHLORIDE 99 mmol/L (98-107); CREATININE 1.06 mg/dl (0.60-1.20); GLUCOSE 205 mg/dl (70-99); MAGNESIUM 2.1 mg/dl (1.8-2.4); POTASSIUM 3.8 mmol/L (3.5-5.1); SODIUM 138 mmol/L (136-145)
[2017-08-17 22:29] LABS: ALB/GLOB RATIO 0.8 (0.9-2); ALKALINE PHOSPHATASE 96 U/L (45-117); AST/SGOT 21 U/L (15-37); CKMB/CK RATIO 0.9 (0-3.0)
[2017-08-17] MEDS ORDERED: FUROSEMIDE 40 MG/4 ML VIAL IV STA (22:29)
[2017-08-17] MEDS ORDERED: POTASSIUM CHLORIDE 10 MEQ TABCR PO STA (23:02)
[2017-08-17] MEDS ORDERED: WARFARIN SOD 7.5 MG TAB PO STA (23:07)
[2017-08-17] MEDS ORDERED: CETI10TA84 PO (23:13)
[2017-08-17] MEDS ORDERED: MULTTAB58 PO (23:16)
[2017-08-17] MEDS ORDERED: EPP3/2 IM (23:16)
[2017-08-17] MEDS ORDERED: METHYLPREDNISOLONE IV 20 MG in SYRINGE 0 ML IV STA (23:29)
[2017-08-17] MEDS ORDERED: GLUCOSE 40% GEL 15 GM TUBE PO PRN (23:30)
[2017-08-17] MEDS ORDERED: ACETAMINOPHEN 325 MG TAB PO PRN (23:30)
[2017-08-17] MEDS ORDERED: MoRPHine SULFATE 4 MG/ML 1 ML CARP\\VIAL IV PRN (23:30)
[2017-08-17] MEDS ORDERED: LEVALBUTEROL/IPRATROPIUM NEB INH PRN (23:30)
[2017-08-17] MEDS ORDERED: GLUCOSE 10 TABS/TUBE PO PRN (23:30)
[2017-08-17] MEDS ORDERED: GLUCAGON FOR INJ 1 MG VIAL SQ PRN (23:30)
[2017-08-17] MEDS ORDERED: NITROGLYCERIN 0.4 MG SL PER TAB CHARGE SL PRN (23:30)
[2017-08-17] MEDS ORDERED: DEXTROSE 50% 50 ML SYR IV PRN (23:30)
[2017-08-17] MEDS ORDERED: DOXYCYCLINE HYCLATE 100 MG CAP PO STA (23:33)
[2017-08-17] MEDS ORDERED: INSULIN GLARGINE SOLOSTAR 100 UNITS/ML 3 ML PEN SC STA (23:46)
[2017-08-17] MEDS ORDERED: INSULIN ASPART 100 UNITS/ML 3 ML PEN SC STA (23:46)
[2017-08-17 23:51] LABS: ARTERIAL BLD GAS O2 SATURATION 92.8 % (90-95); ARTERIAL BLOOD GAS HCO3 35 mmol/L (19-24); ARTERIAL BLOOD GAS PO2 68 mm/Hg (80-95); ARTERIAL BLOOD GAS pH 7.38 (7.35-7.45)
[2017-08-17 23:57] LABS: ALLEN TEST POS (POS); O2 ADMINISTRATION 3 L
[2017-08-18] VITALS (11 sets, daily range): BP systolic 121–166; BP diastolic 71–88; PULSE 67–109; TEMP 36.4–37.7; O2SAT 91–99; Ht 162.6 cm; Wt 89.4 kg
[2017-08-18] MEDS ORDERED: LEVALBUTEROL/IPRATROPIUM NEB INH PRN (00:30)
[2017-08-18] MEDS ORDERED: IPRATROPIUM BROMIDE NEB SOLN 0.02% 2.5 ML VIAL INH PRN (01:00)
[2017-08-18] MEDS ORDERED: LEVALBUTEROL 1.25MG/0.5ML NEB INH PRN (01:00)
[2017-08-18] MEDS ORDERED: INFLUENZA VIRUS QUAD VACCINE 0.5 ML SYR IM. ONE (01:45)
[2017-08-18] MEDS ORDERED: INFLUENZA ADMINISTRATION CHARGE ONE (01:45)
[2017-08-18] MEDS: IPRATROPIUM BROMIDE NEB SOLN 0.02% 2.5 ML VIAL INH SCH ×4 (01:55→19:38)
[2017-08-18] MEDS: LEVALBUTEROL 1.25MG/0.5ML NEB INH SCH ×4 (01:55→19:38)
[2017-08-18] MEDS ORDERED: LEVALBUTEROL/IPRATROPIUM NEB INH SCH ×2 (03:00)
--- NOTE | 2017-08-18 03:32 | HISTORY & PHYSICAL EXAMINATION ---
DATE OF ADMISSION: 08/17/2017 PRIMARY CARE DOCTOR: Manoj Goins DO. CHIEF COMPLAINT: Cough, shortness of breath. HISTORY OF PRESENT ILLNESS: History obtained from patient and records. Medical history is significant for chronic diastolic heart failure, EF of 65%, atrial flutter status post ablation on Coumadin, chronic respiratory failure secondary to COPD on home O2, ongoing tobacco abuse, sleep apnea as per records, chronic pain on narcotics, HTN, diabetes type 2 insulin requiring, gastroparesis per records, mood disorder. Recent confinement last April 2017 for decompensated heart failure. Last night, patient had cough productive of yellow sputum, shortness of breath more than usual. Also noted left-sided chest pain as if somebody was sitting on her chest. Denies aspiration. Claims to be compliant with her medications. Weight stable as per patient. At the ER, the patient received Lasix for CHF exacerbation. MEDICAL HISTORY: As above. 2D echo from April 2017 showed LVH, normal LV, RV size and function, no pericardial effusion. SURGERIES: She has had hysterectomy, appendectomy, cholecystectomy, lumpectomy, mitral valve repair, tubal ligation, umbilical hernia repair. HOME MEDICATIONS: Include amitriptyline, amlodipine, atorvastatin, calcitriol, Zyrtec, EpiPen, fentanyl, Advair Diskus, Lasix, gabapentin, home O2, Lantus, ipratropium, albuterol, Synthroid, lorazepam, Reglan, multivitamins, Lopressor, olanzapine, Protonix, Klor-Con, Spiriva, trazodone, Effexor. ALLERGIES: BEES STING, LACTOSE, LITHIUM, METRONIDAZOLE PREDNISONE, ALPRAZOLAM, LISINOPRIL, COLESEVELAM, STRAWBERRY, POTATO. FAMILY HISTORY: Heart disease. PERSONAL AND SOCIAL HISTORY: Eight cigarettes a day, disabled, no chronic intake of alcoholic beverages. REVIEW OF SYSTEMS: As per HPI. All 10 systems reviewed. All other ROS negative. PHYSICAL EXAMINATION: VITAL SIGNS: Blood pressure was noted to be 160/100, pulse rate 95, RR 23, temperature 36.9, sats 95 on 3 liters. GENERAL: Noted to be obese. Chronically ill, no respiratory distress. SKIN: Normal color. Warm. HEENT: [place] palpebral conjunctivae. No ptosis. Dry mucosa. Nasal cannula in place NECK: Short. No tenderness. JVD not assessed. CHEST: Decreased breath sounds. Expiratory wheezes, rhonchi. HEART: Regular rate and rhythm. No murmur. ABDOMEN: Some distension, nontender. EXTREMITIES: Minimal LE edema, no tenderness, no gross deformities. NEUROLOGIC: Coherent. No gross focality. LABORATORY DATA: Hemoglobin 12.4, hematocrit 33.4, white cell count 12.83, platelets noted to be 228. Sodium 136, potassium 3.8, chloride 99, CO2 35, BUN 12, creatinine 0.1, glucose was noted to be 205. BNP 1907. INR is noted to be 1.6. Chest x-ray showed cardiomegaly, CHF, emphysema, no pneumonia. EKG as per my interpretation, rate 85, normal sinus rhythm, normal axis, right bundle branch block, PVCs. ASSESSMENT: 1. Shortness of breath multifactorial : decompensated heart failure (chronic diastolic heart failure, EF 65-70%.) chronic obstructive pulmonary disease exacerbation, no sepsis (chronic respiratory failure on home O2, hx DARIUS) 2. PAFlutter sp ablation, NSR, INR slightly subtherapeutic. 3. Hypertension, slightly elevated 4. DM2, insulin requiring, suboptimal control as of recent HgA1c (8.1 in June 2017) 5. Mood disorder, stable on meds. 6. Chronic pain on narcotics. 7. ongoing tobacco abuse. PLAN: PCU supplemental O2 Diuretic Rx, strict IOS, daily weights, CHF education Cardio consult RE CHF. Doxycycline, nebs RTC, p.r.n., Solu-Medrol 1 dose now for bronchospasm (hold off on steroid course for now given suboptimal blood sugar control.) Basal insulin, ISS BG goal 140-180 Carb count coverage indicated for suboptimal blood sugar control. Nicotine patch. PT OT eval DVT prophylaxis, Coumadin INR 2-3. Full code. MTDD
[2017-08-18] MEDS: LEVOTHYROXINE 50 MCG TAB PO SCH (06:05)
[2017-08-18 06:06] LABS: INR 1.5 (0.9-1.1); PROTHROMBIN TIME (PATIENT) 16.1 SECONDS (9.0-12.0)
[2017-08-18 06:19] LABS: BASO % 0.1 %; BASO ABS # 0.01 K/uL (0-0.2); COMPLETE YES; HEMATOCRIT 38.3 % (37-47); IG% 0.5 %; LYMPH % 8.2 %; LYMPH ABS # 0.93 K/uL (1.2-3.4); MEAN CELL VOLUME 90.5 fL (80-100); MEAN CORPUSCULAR HEMOGLOBIN 29.6 pg (25-34); MEAN CORPUSCULAR HGB CONC 32.6 g/dl (32-36); MONO % 3.2 %; PLATELET COUNT 213 K/uL (130-400); RED BLOOD COUNT 4.23 M/uL (4.2-5.4); WHITE BLOOD COUNT 11.31 K/uL (4.8-10.8)
[2017-08-18 06:26] LABS: BUN/CREATININE RATIO 13.5 (10-20); CREATININE 0.89 mg/dl (0.60-1.20); POTASSIUM 3.8 mmol/L (3.5-5.1)
--- NOTE | 2017-08-18 06:50 | DIAGNOSTIC IMAGING REPORT ---
ASCITES-ABDOMEN LIMITED CLINICAL HISTORY: abd distension ascites TECHNIQUE: Survey ultrasound COMPARISON STUDY: None FINDINGS: No significant ascites. Increased cortical echogenicity of the right kidney suggesting nonobstructive renal insufficiency. Bladder distention IMPRESSION: No significant ascites. Bladder distention The above report was generated using voice recognition software. It may contain grammatical, syntax or spelling errors. Electronically signed by: Javan Dey M.D. 08/18/2017 6:49 AM Dictated Date/Time: 08/18/2017 6:48 AM
[2017-08-18] MEDS: FUROSEMIDE INJ 40 MG in SYRINGE 0 ML IV SCH ×2 (08:04→16:48)
[2017-08-18] MEDS: METOPROLOL TARTRATE 100 MG TAB PO SCH ×2 (08:04→20:59)
[2017-08-18] MEDS: CETIRIZINE HCL 10 MG TAB PO SCH (08:04)
[2017-08-18] MEDS: METOCLOPRAMIDE HCL 5 MG TAB PO SCH ×3 (08:05→16:48)
[2017-08-18] MEDS: DOXYCYCLINE HYCLATE 100 MG CAP PO SCH ×2 (08:05→21:00)
[2017-08-18] MEDS: VENLAFAXINE HCL XR 75 MG CAPXR PO SCH (08:05)
[2017-08-18] MEDS: AMLODIPINE BESYLATE 5 MG TAB PO SCH (08:05)
[2017-08-18] MEDS: PANTOprazole SOD 40 MG TAB PO SCH (08:06)
[2017-08-18] MEDS: DOCUSATE SODIUM 100 MG CAP PO SCH (08:06)
[2017-08-18] MEDS: POTASSIUM CHLORIDE 20 MEQ TABCR PO SCH ×2 (08:06→20:58)
[2017-08-18] MEDS: MULTIVITAMIN TAB PO SCH (08:06)
[2017-08-18] MEDS: GABAPENTIN 800 MG TAB PO SCH ×3 (08:06→20:59)
[2017-08-18] MEDS: CHECK FENTANYL PATCH PLACEMENT SCH ×2 (08:07→17:19)
[2017-08-18] MEDS: INSULIN ASPART 100 UNITS/ML 3 ML PEN SC SCH ×4 (08:16→21:00)
[2017-08-18] MEDS: INSULIN GLARGINE SOLOSTAR 100 UNITS/ML 3 ML PEN SC SCH ×2 (08:17→21:03)
[2017-08-18] MEDS: TRAMADOL HCL 50 MG TAB PO PRN ×2 (08:29→16:44)
[2017-08-18] MEDS ORDERED: FENTANYL PATCH REMOVE & WASTE SCH (08:59)
[2017-08-18] MEDS ORDERED: FENTANYL 50 MCG/HR TDSY TD SCH (09:00)
--- NOTE | 2017-08-18 12:00 | CARDIOLOGY CONSULTATION ---
DATE OF CONSULTATION: 08/18/2017 REFERRING: Dr. Burns. PRIMARY CARE: Dr. Goins. INDICATIONS: Worsening shortness of breath. 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 The patient presents now this admission with complaints of worsening shortness of breath, cough, low grade fever, symptoms lasting approximately 2 days in duration, worse on the day of admission. She notes no overt weight gain or worsening edema, has been taking medications as prescribed. Notes no tachypalpitations, syncope or near syncope. Notes no chest pains or discomfort, but did feel breathless and tight in the chest, evening of admission. The patient has received IV Lasix on ER presentation with prompt diuresis. She feels improved this morning. Currently, denies any chest pains or discomfort. Notes no bleeding difficulties, melena, hematochezia, dysuria or hematuria. Notes no headache or visual changes. REVIEW OF SYSTEMS: Otherwise negative. ALLERGIES: ALPRAZOLAM, LISINOPRIL, LITHIUM, METRONIDAZOLE, PREDNISONE, though patient currently tolerating steroid therapies. 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 FAMILY HISTORY: Positive for diabetes and hypertension. SOCIAL HISTORY: The patient is a continued smoker, is now down to 6 cigarettes per day but daily use present. Uses no alcoholic products. He is relatively sedentary about her home with minimal activity. MEDICATIONS: Prior to hospitalization per list and patient confirmation were amitriptyline 50 mg at bedtime, amlodipine 10 mg q.a.m., atorvastatin 40 mg at bedtime, Zyrtec 10 mg q.a.m., calcitriol 0.5 mcg 3 times per week, fentanyl p.r.n. pain 50 mcg patch topically q. 72 hours, furosemide 20 mg b.i.d., gabapentin 80 mg t.i.d., Lantus insulin, levothyroxine 50 mcg p.o. every day, lorazepam p.r.n., metoprolol 100 mg b.i.d., multivitamin 1 tablet every day, pantoprazole 40 mg every day, olanzapine 2.5 mg at bedtime, potassium chloride tablets every day, Spiriva, trazodone and Effexor. Physical examination: GENERAL: At the time of examination, the patient is a no acute distress. VITAL SIGNS: Heart rate is 100, blood pressure is 166/88, pulse ox is 97% on 3 liters nasal cannula. HEENT: Normocephalic, atraumatic. NECK: Thin. There is no distinct jugular venous distention. LUNGS: Reveal markedly diminished breath sounds with coarse rhonchorous sounds on the left chest. CARDIOVASCULAR: Regular. There is no S3 gallop. ABDOMEN: Soft, nontender. There is no palpable hepatosplenomegaly. There is no hepatojugular reflux. EXTREMITIES: Without cyanosis or clubbing. There is no peripheral edema. There are intact distal pulses. LABORATORY DATA: White cell count on presentation was 12.8. Sodium is 140, potassium is 3.8, chloride is 103, bicarbonate 36, BUN is 12, creatinine 0.89, glucose is 256. Troponin I is negative x2. CK and MB fractions are normal. BNP is upper limits of normal for age at 1907. Albumin level was 3.1. Blood gas on presentation revealed a pH of 7.38, pCO2 of 61, and pO2 of 68 on 3 liters nasal cannula. IMAGING DATA: Chest x-ray reveals diffuse interstitial changes. Echocardiogram last performed in April 2017 revealed mild left ventricular hypertrophy with hyperdynamic LV function, no significant valvular pathology. EKG this admission reveals sinus tachycardia with right bundle branch block configuration. Telemetry reveals no arrhythmias. IMPRESSION: A 61-year-old female with complex history as outlined with preserved left ventricular systolic function, presents now with acute respiratory distress, mixed etiology, predominant exacerbating factor appears to be exacerbation of underlying pulmonary disease with chronic interstitial changes on chest x-ray consistent component of diastolic failure as well. The patient has responded to IV diuretics as well as antibiotic therapy and bronchodilators. Exam does not suggest volume overload or acute pulmonary edema. PLAN: Continue current therapies, though will increase beta mana slightly to control heart rate. Would discontinue IV furosemide after today, but will follow closely. Supplement potassium to help with metabolic alkalosis, the patient with known hypercarbia. Will follow the patient in the hospital.
[2017-08-18] MEDS: WARFARIN SOD 5 MG TAB PO SCH (16:47)
--- NOTE | 2017-08-18 19:05 | Progress Note ---
Medicine Progress Note Date & Time of Visit: Aug 18, 2017 at 18:57. Subjective patient seen resting in bed, comfortable states she feels improved overall breathing and cough has improved denies chest pain, dyspnea, dizziness no other symptoms Objective Last 8 Hrs Date Time Temp Pulse Resp B/P (MAP) Pulse Ox O2 Delivery O2 Flow Rate FiO2 08/18/17 16:00 36.7 67 67 132/74 (93) 99 Nasal Cannula 3.0 08/18/17 16:00 Nasal Cannula 3.0 08/18/17 14:30 86 16 98 Nasal Cannula 3.0 08/18/17 12:00 Nasal Cannula 3.0 08/18/17 11:42 88 97 08/18/17 11:11 36.4 87 20 132/83 (99) 98 Nasal Cannula 3.0 Physical Exam: General- oriented x 3, not in distress, speaks in sentences with no effort Head- atraumatic Eyes- PERRL, EOMI, anicteric ENT- oropharynx clear Neck- supple, no JVD, no adenopathy, no thyromegaly Lungs- mild rales at the bases, no wheezing Heart- regular rhythm; no murmur, normal rate Abdomen- normal bowel sounds, soft, nontender Extremities- no pretibial edema, no calf tenderness; peripheral pulses intact Neuro- alert, oriented x 3;no gross focal deficits Skin- warm & dry Laboratory Results: Last 24 Hours Test 08/17/17 21:30 08/17/17 23:14 08/18/17 00:53 08/18/17 01:02 White Blood Count 12.83 K/uL Red Blood Count 4.20 M/uL Hemoglobin 12.4 g/dL Hematocrit 38.4 % Mean Corpuscular Volume 91.4 fL Mean Corpuscular Hemoglobin 29.5 pg Mean Corpuscular Hemoglobin Concent 32.3 g/dl RDW Standard Deviation 48.9 fL RDW Coefficient of Variation 14.6 % Platelet Count 228 K/uL Mean Platelet Volume 10.1 fL Prothrombin Time 17.6 SECONDS Prothromb Time International Ratio 1.6 Activated Partial Thromboplast Time 35.9 SECONDS Partial Thromboplastin Ratio 1.4 Sodium Level 138 mmol/L Potassium Level 3.8 mmol/L Chloride Level 99 mmol/L Carbon Dioxide Level 35 mmol/L Anion Gap 3.0 mmol/L Blood Urea Nitrogen 12 mg/dl Creatinine 1.06 mg/dl Est Creatinine Clear Calc Drug Dose 62.6 ml/min Estimated GFR () 66.1 Estimated GFR (Non- 57.0 BUN/Creatinine Ratio 11.1 Random Glucose 205 mg/dl Calcium Level 8.9 mg/dl Magnesium Level 2.1 mg/dl Total Bilirubin 0.2 mg/dl Aspartate Amino Transf (AST/SGOT) 21 U/L Alanine Aminotransferase (ALT/SGPT) 36 U/L Alkaline Phosphatase 96 U/L Total Creatine Kinase 184 U/L Creatine Kinase MB 1.7 ng/ml Creatine Kinase MB Ratio 0.9 Troponin I < 0.015 ng/ml 0.017 ng/ml Pro-B-Type Natriuretic Peptide 1907 pg/ml Total Protein 7.0 gm/dl Albumin 3.1 gm/dl Globulin 3.9 gm/dl Albumin/Globulin Ratio 0.8 Arterial Blood pH 7.38 Arterial Blood Partial Pressure CO2 61 mmHg Arterial Blood Partial Pressure O2 68 mm/Hg Arterial Blood HCO3 35 mmol/L Arterial Blood Oxygen Saturation 92.8 % Arterial Blood Base Excess 8.0 mEq/L Arterial Blood Gas Delivery 3 L Alexandr Test POS Bedside Glucose 197 mg/dl Test 08/18/17 05:39 08/18/17 06:41 08/18/17 11:10 08/18/17 16:20 White Blood Count 11.31 K/uL Red Blood Count 4.23 M/uL Hemoglobin 12.5 g/dL Hematocrit 38.3 % Mean Corpuscular Volume 90.5 fL Mean Corpuscular Hemoglobin 29.6 pg Mean Corpuscular Hemoglobin Concent 32.6 g/dl Platelet Count 213 K/uL Neutrophils (%) (Auto) 88.0 % Lymphocytes (%) (Auto) 8.2 % Monocytes (%) (Auto) 3.2 % Eosinophils (%) (Auto) 0.0 % Basophils (%) (Auto) 0.1 % Neutrophils # (Auto) 9.95 K/uL Lymphocytes # (Auto) 0.93 K/uL Monocytes # (Auto) 0.36 K/uL Eosinophils # (Auto) 0.00 K/uL Basophils # (Auto) 0.01 K/uL Immature Granulocyte % (Auto) 0.5 % Immature Granulocyte # (Auto) 0.06 K/uL Prothrombin Time 16.1 SECONDS Prothromb Time International Ratio 1.5 Sodium Level 140 mmol/L Potassium Level 3.8 mmol/L Chloride Level 103 mmol/L Carbon Dioxide Level 36 mmol/L Anion Gap 1.0 mmol/L Blood Urea Nitrogen 12 mg/dl Creatinine 0.89 mg/dl Est Creatinine Clear Calc Drug Dose 73.5 ml/min Estimated GFR () 81.6 Estimated GFR (Non- 70.4 BUN/Creatinine Ratio 13.5 Random Glucose 271 mg/dl Calcium Level 9.0 mg/dl Troponin I < 0.015 ng/ml Bedside Glucose 256 mg/dl 205 mg/dl 175 mg/dl Assessment & Plan 1. Shortness of breath decompensated heart failure (chronic diastolic heart failure, EF 65-70%.) - on Lasix IV BID - improving clinically - Cardiology has been consulted chronic obstructive pulmonary disease exacerbation, (chronic respiratory failure on home O2, hx DARIUS) - no sepsis - CXR: no signs of pneumonia - given Solumedrol at the ER no wheezing - continue antibiotics and Nebs - monitor 2. PAFlutter sp ablation, NSR, INR slightly subtherapeutic. - on Metoprolol and coumadin - monitor INR 3. Hypertension, slightly elevated - continue Amlodipine 4. DM2, insulin requiring, suboptimal control as of recent HgA1c (8.1 in June 2017) - on Lantus and ISS 5. Mood disorder, stable on meds. 6. Chronic pain on narcotics. 7. ongoing tobacco abuse. - counselled DVT prophylaxis on Coumadin Full Code Disposition - lives with family at home - already on home oxygen - may benefit from home health services - ff up with PCP and Respiratory Assistant Current Inpatient Medications: Current Inpatient Medications Medications (Trade) Dose Ordered Sig/Artemio Route Start Time Stop Time Status Last Admin Dose Admin Doxycycline Hyclate (Vibramycin Cap) 100 mg BID PO 08/18/17 09:00 08/25/17 08:59 08/18/17 08:05 100 MG Acetaminophen (Tylenol Tab) 650 mg Q4H PRN PO 08/17/17 23:30 09/16/17 23:29 08/18/17 04:28 650 MG Nitroglycerin (Nitrostat Tab) 0.4 mg UD PRN SL 08/17/17 23:30 09/16/17 23:29 Insulin Aspart (novoLOG ASPART) SLIDING SCALE If C... ACHS SC 08/18/17 07:00 09/17/17 06:59 08/18/17 16:46 5 UNITS Glucose (Glucose 40% Gel) 15-30 GRAMS 15 GRAMS... UD PRN PO 08/17/17 23:30 09/16/17 23:29 Glucose (Glucose Chew Tab) 4-8 Tablets 4 Tabl... UD PRN PO 08/17/17 23:30 09/16/17 23:29 Dextrose (Dextrose 50% 50ML Syringe) 25-50ML OF 50% DW IV FOR... UD PRN IV 08/17/17 23:30 09/16/17 23:29 Glucagon (Glucagon Inj) 1 mg UD PRN SQ 08/17/17 23:30 09/16/17 23:29 Potassium Chloride (Klor-Con Tab) 20 meq BID PO 08/18/17 09:00 09/17/17 08:59 08/18/17 08:06 20 MEQ Furosemide 40 mg/ Syringe 4 ml @ 4 mls/min BID17 IV 08/18/17 09:00 08/19/17 08:59 Future Hold 08/18/17 16:48 4 MLS/MIN Amitriptyline HCl (Elavil Tab) 50 mg HS PO 08/18/17 21:00 09/17/17 20:59 Atorvastatin Calcium (Lipitor Tab) 40 mg HS PO 08/18/17 21:00 09/17/17 20:59 Cetirizine HCl (zyrTEC TAB) 10 mg QAM PO 08/18/17 09:00 09/17/17 08:59 08/18/17 08:04 10 MG Fentanyl (Duragesic Patch) 50 mcg Q72H TD 08/18/17 09:00 09/01/17 08:59 08/18/17 08:18 50 MCG Gabapentin (Neurontin Tab) 800 mg TID PO 08/18/17 09:00 09/17/17 08:59 08/18/17 13:07 800 MG Insulin Glargine (Lantus Solostar Pen) 20 units BID SC 08/18/17 09:00 09/17/17 08:59 08/18/17 08:17 20 UNITS Levothyroxine Sodium (Synthroid Tab) 50 mcg DAILYBB PO 08/18/17 06:00 09/17/17 05:59 08/18/17 06:05 50 MCG Metoclopramide HCl (Reglan Tab) 5 mg TIDM PO 08/18/17 07:30 09/17/17 07:59 08/18/17 16:48 5 MG Metoprolol Tartrate (Lopressor Tab) 100 mg BID PO 08/18/17 09:00 09/17/17 08:59 08/18/17 08:04 100 MG Multivitamins (Multivitamin Tab) 1 tab QAM PO 08/18/17 09:00 09/17/17 08:59 08/18/17 08:06 1 TAB Olanzapine (Zyprexa Tab) 2.5 mg HS PO 08/18/17 21:00 09/17/17 20:59 Pantoprazole Sodium (Protonix Tab) 40 mg DAILY PO 08/18/17 09:00 09/17/17 08:59 08/18/17 08:06 40 MG Trazodone HCl (Desyrel Tab) 150 mg HS PO 08/18/17 21:00 09/17/17 20:59 Venlafaxine HCl (effeXOR EXTENDED REL CAP) 225 mg QAM PO 08/18/17 09:00 09/17/17 08:59 08/18/17 08:05 225 MG Amlodipine Besylate (Norvasc Tab) 10 mg QAM PO 08/18/17 09:00 09/17/17 08:59 08/18/17 08:05 10 MG Warfarin Sodium (Coumadin Tab) 5 mg DAILY@16 PO 08/18/17 16:00 09/17/17 15:59 08/18/17 16:47 5 MG Morphine Sulfate (MoRPHine SULFATE INJ) 4 mg Q6H PRN IV 08/17/17 23:30 08/31/17 23:29 Tramadol HCl (Ultram Tab) not relieved by tylenol @ Q6H PRN PO 08/17/17 23:30 09/16/17 23:29 08/18/17 16:44 50 MG Docusate Sodium (coLACE CAP) 100 mg DAILY PO 08/18/17 09:00 09/17/17 08:59 Ipratropium [place] (Atrovent 0.02% 0.5MG/2.5ML Neb) 0.5 mg Q6R INH 08/18/17 03:00 09/17/17 02:59 08/18/17 14:29 0.5 MG Levalbuterol (Xopenex 1.25MG/ 0.5ML Neb) 1.25 mg Q6R INH 08/18/17 03:00 09/17/17 02:59 08/18/17 14:29 1.25 MG Ipratropium [place] (Atrovent 0.02% 0.5MG/2.5ML Neb) 0.5 mg Q4H PRN INH 08/18/17 01:00 09/17/17 00:59 Levalbuterol (Xopenex 1.25MG/ 0.5ML Neb) 1.25 mg Q4H PRN INH 08/18/17 01:00 09/17/17 00:59 Miscellaneous (Fentanyl Patch Remove & Waste) 1 ea Q3D@0859 N/A 08/18/17 08:59 09/17/17 08:58 08/18/17 08:07 1 EA Miscellaneous Information (Check Fentanyl Patch Placement) 1 ea QS N/A 08/18/17 08:00 09/17/17 07:59 08/18/17 17:19 1 EA
[2017-08-18] MEDS: TRAZODONE HCL 50 MG TAB PO SCH (20:57)
[2017-08-18] MEDS: AMITRIPTYLINE HCL 50 MG TAB PO SCH (20:58)
[2017-08-18] MEDS: ATORVASTATIN 40 MG TAB PO SCH (20:58)
[2017-08-18] MEDS: OLANZAPINE 2.5 MG TAB PO SCH (21:00)
[2017-08-19] VITALS (15 sets, daily range): BP systolic 114–136; BP diastolic 62–74; PULSE 18–74; TEMP 36.3–36.9; O2SAT 92–96
[2017-08-19] MEDS: IPRATROPIUM BROMIDE NEB SOLN 0.02% 2.5 ML VIAL INH SCH ×4 (01:50→20:05)
[2017-08-19] MEDS: LEVALBUTEROL 1.25MG/0.5ML NEB INH SCH ×4 (01:50→20:05)
[2017-08-19] MEDS: LEVOTHYROXINE 50 MCG TAB PO SCH (06:20)
[2017-08-19] MEDS: METOCLOPRAMIDE HCL 5 MG TAB PO SCH ×3 (07:34→16:03)
[2017-08-19] MEDS: DOCUSATE SODIUM 100 MG CAP PO SCH (07:34)
[2017-08-19] MEDS: GABAPENTIN 800 MG TAB PO SCH ×3 (07:34→21:33)
[2017-08-19] MEDS: METOPROLOL TARTRATE 100 MG TAB PO SCH ×2 (07:34→21:34)
[2017-08-19] MEDS: POTASSIUM CHLORIDE 20 MEQ TABCR PO SCH ×2 (07:34→21:34)
[2017-08-19] MEDS: MULTIVITAMIN TAB PO SCH (07:34)
[2017-08-19] MEDS: VENLAFAXINE HCL XR 75 MG CAPXR PO SCH (07:34)
[2017-08-19] MEDS: AMLODIPINE BESYLATE 5 MG TAB PO SCH (07:35)
[2017-08-19] MEDS: PANTOprazole SOD 40 MG TAB PO SCH (07:35)
[2017-08-19] MEDS: CETIRIZINE HCL 10 MG TAB PO SCH (07:35)
[2017-08-19] MEDS: DOXYCYCLINE HYCLATE 100 MG CAP PO SCH ×2 (07:35→21:33)
[2017-08-19] MEDS: CHECK FENTANYL PATCH PLACEMENT SCH ×4 (08:00→23:26)
[2017-08-19 08:35] LABS: INR 1.8 (0.9-1.1); PROTHROMBIN TIME (PATIENT) 18.4 SECONDS (9.0-12.0)
[2017-08-19 08:56] LABS: BUN/CREATININE RATIO 17.1 (10-20); CALCIUM 9.4 mg/dl (8.5-10.1); POTASSIUM 3.5 mmol/L (3.5-5.1)
[2017-08-19] MEDS: INSULIN ASPART 100 UNITS/ML 3 ML PEN SC SCH ×4 (09:14→21:37)
[2017-08-19] MEDS: INSULIN GLARGINE SOLOSTAR 100 UNITS/ML 3 ML PEN SC SCH ×2 (09:15→21:38)
--- NOTE | 2017-08-19 10:20 | PROGRESS NOTE ---
DATE: 08/19/2017 CARDIOLOGY CONSULTATION FOLLOWUP NOTE The patient seen and examined. Chart, medications, laboratory studies reviewed. SUBJECTIVE: The patient feels improved this morning. Notes cough is reduced. Notes no chest pains. Notes no tachypalpitations. OBJECTIVE: VITAL SIGNS: Heart rate 63, blood pressure is 120/71. NECK: Thin. There is no jugular venous distention. LUNGS: Reveal improved aeration to the bases, less rhonchorous sounds at the left base. CARDIOVASCULAR: Regular. There is no S3 gallop. There is a grade 1/6 systolic murmur. ABDOMEN: Soft, nontender. EXTREMITIES: Without cyanosis or clubbing. There is no peripheral edema. LABORATORY STUDIES: Today, sodium is 140, potassium is 3.5, chloride is 101, bicarbonate is 36, BUN 17, and creatinine is 1.0. IMPRESSION: A 61-year-old female admitted with mixed respiratory failure secondary to exacerbation of chronic obstructive lung disease as well as diastolic heart failure. The patient has responded to both corticosteroids, antibiotics as well as diuretic usage. Volume status appears to be approaching euvolemic after greater than 3 liter diuresis. RECOMMENDATIONS: Will resume furosemide at 20 mg twice per day as previous dosing. Will add spironolactone at 12.5 mg per day. On discharge, the patient should have reduced dose of potassium at 10 mEq per day given addition of spironolactone. Would complete treatment of pulmonary exacerbation and will require close clinical followup.
[2017-08-19] MEDS ORDERED: SPIRONOLACTONE 25 MG TAB PO ONE (10:45)
[2017-08-19] MEDS ORDERED: FUROSEMIDE 20 MG TAB PO ONE (10:45)
--- NOTE | 2017-08-19 10:48 | Progress Note ---
Medicine Progress Note Date & Time of Visit: Aug 19, 2017 at 09:23. Subjective Pt was seen and examined Lying in bed comfortable with no distress Pt said that she feels much better today She said that her breathing feels much better Denies any chest pain, palpitation, dizziness Objective Last 8 Hrs Date Time Temp Pulse Resp B/P (MAP) Pulse Ox O2 Delivery O2 Flow Rate FiO2 08/19/17 08:27 96 Nasal Cannula 3.0 08/19/17 07:21 63 16 96 Nasal Cannula 3.0 08/19/17 04:02 36.8 61 16 120/71 (87) 95 Nasal Cannula 3.0 08/19/17 04:00 96 Nasal Cannula 3.0 08/19/17 03:06 96 Nasal Cannula 3.0 08/19/17 03:02 36.7 71 16 121/71 (88) 96 Nasal Cannula 3.0 08/19/17 01:50 58 16 96 Nasal Cannula 3.0 Physical Exam: General- No acute distress Head- atraumatic Eyes- PERRL, EOMI ENT- oropharynx clear Neck- supple, no JVD Lungs- no wheezing, no crackles Heart- regular rhythm Abdomen- normal bowel sounds, soft Extremities- no calf tenderness Neuro- alert, oriented x 3; PERRL, EOMI; no facial palsy Skin- warm & dry Laboratory Results: Last 24 Hours Test 08/18/17 11:10 08/18/17 16:20 08/18/17 19:53 08/19/17 07:10 Bedside Glucose 205 mg/dl 175 mg/dl 111 mg/dl 92 mg/dl Test 08/19/17 08:10 Prothrombin Time 18.4 SECONDS Prothromb Time International Ratio 1.8 Sodium Level 140 mmol/L Potassium Level 3.5 mmol/L Chloride Level 101 mmol/L Carbon Dioxide Level 36 mmol/L Anion Gap 3.0 mmol/L Blood Urea Nitrogen 17 mg/dl Creatinine 1.00 mg/dl Est Creatinine Clear Calc Drug Dose 65.4 ml/min Estimated GFR () 70.9 Estimated GFR (Non- 61.2 BUN/Creatinine Ratio 17.1 Random Glucose 107 mg/dl Calcium Level 9.4 mg/dl Assessment & Plan Acute on chronic decompensated diastolic heart failure Present with worsening SOB CXR on admission showed cardiomegaly with evidence of congestive failure and interstitial edema. Received IV lasix Case discussed with Cardiology Dr. House Lasix 20mg BID resumed. Adding spironolactone 12.5 mg Monitor electrolytes Clinically improved Continue monitor Chronic obstructive pulmonary disease exacerbation Chronic respiratory failure on home O2, hx DARIUS CXR showed no infiltrates WBC trending down, afebrile in the last 24hr received Solumedrol in the ER Continue doxycycline 100mg BID P. A Fluter sp ablation Now on SNR with rate control Continue Metoprolol and Coumadin INR 1.8 today Hypertension BP stable Continue Amlodipine, lasix DM2 last Hba1c 8.1 on 07/01 On Lantus Continue insulin coverage Mood disorder stable on med Chronic pain on narcotics. Tobacco abuse. Counseling on smoking cessation DVT prophylaxis on Coumadin INR 1.8 Full Code Current Inpatient Medications: Current Inpatient Medications Medications (Trade) Dose Ordered Sig/Artemio Route Start Time Stop Time Status Last Admin Dose Admin Doxycycline Hyclate (Vibramycin Cap) 100 mg BID PO 08/18/17 09:00 08/25/17 08:59 08/19/17 07:35 100 MG Acetaminophen (Tylenol Tab) 650 mg Q4H PRN PO 08/17/17 23:30 09/16/17 23:29 08/18/17 04:28 650 MG Nitroglycerin (Nitrostat Tab) 0.4 mg UD PRN SL 08/17/17 23:30 09/16/17 23:29 Insulin Aspart (novoLOG ASPART) SLIDING SCALE If C... ACHS SC 08/18/17 07:00 09/17/17 06:59 08/18/17 16:46 5 UNITS Glucose (Glucose 40% Gel) 15-30 GRAMS 15 GRAMS... UD PRN PO 08/17/17 23:30 09/16/17 23:29 Glucose (Glucose Chew Tab) 4-8 Tablets 4 Tabl... UD PRN PO 08/17/17 23:30 09/16/17 23:29 Dextrose (Dextrose 50% 50ML Syringe) 25-50ML OF 50% DW IV FOR... UD PRN IV 08/17/17 23:30 09/16/17 23:29 Glucagon (Glucagon Inj) 1 mg UD PRN SQ 08/17/17 23:30 09/16/17 23:29 Potassium Chloride (Klor-Con Tab) 20 meq BID PO 08/18/17 09:00 09/17/17 08:59 08/19/17 07:34 20 MEQ Amitriptyline HCl (Elavil Tab) 50 mg HS PO 08/18/17 21:00 09/17/17 20:59 08/18/17 20:58 50 MG Atorvastatin Calcium (Lipitor Tab) 40 mg HS PO 08/18/17 21:00 09/17/17 20:59 08/18/17 20:58 40 MG Cetirizine HCl (zyrTEC TAB) 10 mg QAM PO 08/18/17 09:00 09/17/17 08:59 08/19/17 07:35 10 MG Fentanyl (Duragesic Patch) 50 mcg Q72H TD 08/18/17 09:00 09/01/17 08:59 08/18/17 08:18 50 MCG Gabapentin (Neurontin Tab) 800 mg TID PO 08/18/17 09:00 09/17/17 08:59 08/19/17 07:34 800 MG Insulin Glargine (Lantus Solostar Pen) 20 units BID SC 08/18/17 09:00 09/17/17 08:59 08/19/17 09:15 20 UNITS Levothyroxine Sodium (Synthroid Tab) 50 mcg DAILYBB PO 08/18/17 06:00 09/17/17 05:59 08/19/17 06:20 50 MCG Metoclopramide HCl (Reglan Tab) 5 mg TIDM PO 08/18/17 07:30 09/17/17 07:59 08/19/17 07:34 5 MG Metoprolol Tartrate (Lopressor Tab) 100 mg BID PO 08/18/17 09:00 09/17/17 08:59 08/19/17 07:34 100 MG Multivitamins (Multivitamin Tab) 1 tab QAM PO 08/18/17 09:00 09/17/17 08:59 08/19/17 07:34 1 TAB Olanzapine (Zyprexa Tab) 2.5 mg HS PO 08/18/17 21:00 09/17/17 20:59 08/18/17 21:00 2.5 MG Pantoprazole Sodium (Protonix Tab) 40 mg DAILY PO 08/18/17 09:00 1/3/18 08:59 08/19/17 07:35 40 MG Trazodone HCl (Desyrel Tab) 150 mg HS PO 08/18/17 21:00 09/17/17 20:59 08/18/17 20:57 150 MG Venlafaxine HCl (effeXOR EXTENDED REL CAP) 225 mg QAM PO 08/18/17 09:00 09/17/17 08:59 08/19/17 07:34 225 MG Amlodipine Besylate (Norvasc Tab) 10 mg QAM PO 08/18/17 09:00 09/17/17 08:59 08/19/17 07:35 10 MG Warfarin Sodium (Coumadin Tab) 5 mg DAILY@16 PO 08/18/17 16:00 09/17/17 15:59 08/18/17 16:47 5 MG Morphine Sulfate (MoRPHine SULFATE INJ) 4 mg Q6H PRN IV 08/17/17 23:30 08/31/17 23:29 Tramadol HCl (Ultram Tab) not relieved by tylenol @ Q6H PRN PO 08/17/17 23:30 09/16/17 23:29 08/18/17 16:44 50 MG Docusate Sodium (coLACE CAP) 100 mg DAILY PO 08/18/17 09:00 09/17/17 08:59 08/19/17 07:34 100 MG Ipratropium [place] (Atrovent 0.02% 0.5MG/2.5ML Neb) 0.5 mg Q6R INH 08/18/17 03:00 09/17/17 02:59 08/19/17 07:21 0.5 MG Levalbuterol (Xopenex 1.25MG/ 0.5ML Neb) 1.25 mg Q6R INH 08/18/17 03:00 09/17/17 02:59 08/19/17 07:21 1.25 MG Ipratropium [place] (Atrovent 0.02% 0.5MG/2.5ML Neb) 0.5 mg Q4H PRN INH 08/18/17 01:00 09/17/17 00:59 Levalbuterol (Xopenex 1.25MG/ 0.5ML Neb) 1.25 mg Q4H PRN INH 08/18/17 01:00 09/17/17 00:59 Miscellaneous (Fentanyl Patch Remove & Waste) 1 ea Q3D@0859 N/A 08/18/17 08:59 09/17/17 08:58 08/18/17 08:07 1 EA Miscellaneous Information (Check Fentanyl Patch Placement) 1 ea QS N/A 08/18/17 08:00 09/17/17 07:59 08/19/17 08:00 1 EA
[2017-08-19] MEDS: FUROSEMIDE 20 MG TAB PO SCH (16:03)
[2017-08-19] MEDS: WARFARIN SOD 5 MG TAB PO SCH (16:03)
[2017-08-19] MEDS: TRAZODONE HCL 50 MG TAB PO SCH (21:33)
[2017-08-19] MEDS: ATORVASTATIN 40 MG TAB PO SCH (21:33)
[2017-08-19] MEDS: OLANZAPINE 2.5 MG TAB PO SCH (21:33)
[2017-08-19] MEDS: AMITRIPTYLINE HCL 50 MG TAB PO SCH (21:33)
[2017-08-20] VITALS (7 sets, daily range): BP systolic 123–130; BP diastolic 79–80; PULSE 67–72; TEMP 36.5–36.6; O2SAT 96–98
[2017-08-20] MEDS: LEVALBUTEROL 1.25MG/0.5ML NEB INH SCH ×2 (01:54→07:46)
[2017-08-20] MEDS: IPRATROPIUM BROMIDE NEB SOLN 0.02% 2.5 ML VIAL INH SCH ×2 (01:54→07:46)
[2017-08-20] MEDS: LEVOTHYROXINE 50 MCG TAB PO SCH (06:18)
[2017-08-20 06:45] LABS: HEMATOCRIT 40.4 % (37-47); MEAN CELL VOLUME 90.4 fL (80-100); MEAN CORPUSCULAR HEMOGLOBIN 29.8 pg (25-34); MEAN CORPUSCULAR HGB CONC 32.9 g/dl (32-36); MEAN PLATELET VOLUME 9.8 fL (7.4-10.4); PLATELET COUNT 250 K/uL (130-400); RED BLOOD COUNT 4.47 M/uL (4.2-5.4)
[2017-08-20 06:48] LABS: INR 1.9 (0.9-1.1); PROTHROMBIN TIME (PATIENT) 19.3 SECONDS (9.0-12.0)
[2017-08-20 07:10] LABS: BUN/CREATININE RATIO 24.1 (10-20); CALCIUM 9.3 mg/dl (8.5-10.1); CREATININE 1.05 mg/dl (0.60-1.20)
[2017-08-20] MEDS: CHECK FENTANYL PATCH PLACEMENT SCH (08:00)
[2017-08-20] MEDS: AMLODIPINE BESYLATE 5 MG TAB PO SCH (08:32)
[2017-08-20] MEDS: DOXYCYCLINE HYCLATE 100 MG CAP PO SCH (08:32)
[2017-08-20] MEDS: VENLAFAXINE HCL XR 75 MG CAPXR PO SCH (08:32)
[2017-08-20] MEDS: GABAPENTIN 800 MG TAB PO SCH (08:32)
[2017-08-20] MEDS: POTASSIUM CHLORIDE 20 MEQ TABCR PO SCH (08:33)
[2017-08-20] MEDS: CETIRIZINE HCL 10 MG TAB PO SCH (08:33)
[2017-08-20] MEDS: FUROSEMIDE 20 MG TAB PO SCH (08:33)
[2017-08-20] MEDS: METOCLOPRAMIDE HCL 5 MG TAB PO SCH ×2 (08:33→12:28)
[2017-08-20] MEDS: METOPROLOL TARTRATE 100 MG TAB PO SCH (08:34)
[2017-08-20] MEDS: PANTOprazole SOD 40 MG TAB PO SCH (08:34)
[2017-08-20] MEDS: DOCUSATE SODIUM 100 MG CAP PO SCH (08:34)
[2017-08-20] MEDS: MULTIVITAMIN TAB PO SCH (08:34)
[2017-08-20] MEDS: INSULIN GLARGINE SOLOSTAR 100 UNITS/ML 3 ML PEN SC SCH (08:39)
[2017-08-20] MEDS: INSULIN ASPART 100 UNITS/ML 3 ML PEN SC SCH ×2 (08:39→12:31)
[2017-08-20] MEDS ORDERED: SPIRONOLACTONE 25 MG TAB PO SCH (09:00)
--- NOTE | 2017-08-20 12:06 | Progress Note ---
Medicine Progress Note Date & Time of Visit: Aug 20, 2017 at 11:59. Subjective Pt was seen and examined Lying in bed with no distress Pt said that she feels fine She denies any chest pain, palpitation, dizziness and SOB Objective Last 8 Hrs Date Time Temp Pulse Resp B/P (MAP) Pulse Ox O2 Delivery O2 Flow Rate FiO2 08/20/17 08:00 96 Nasal Cannula 2.0 08/20/17 07:47 72 16 98 Nasal Cannula 2.0 08/20/17 07:11 36.6 70 16 130/80 (97) 96 Nasal Cannula 2.0 08/20/17 04:16 36.5 67 18 123/79 (94) 97 Nasal Cannula 2.0 08/20/17 04:00 96 Nasal Cannula 2.0 Physical Exam: General- No acute distress Head- atraumatic Eyes- PERRL, EOMI ENT- oropharynx clear Neck- supple, no JVD Lungs- no wheezing, no crackles Heart- regular rhythm Abdomen- normal bowel sounds, soft Extremities- no calf tenderness Neuro- alert, oriented x 3; PERRL, EOMI; no facial palsy Skin- warm & dry Laboratory Results: Last 24 Hours Test 08/19/17 16:35 08/19/17 20:47 08/20/17 06:17 08/20/17 07:45 Bedside Glucose 170 mg/dl 183 mg/dl 115 mg/dl White Blood Count 6.70 K/uL Red Blood Count 4.47 M/uL Hemoglobin 13.3 g/dL Hematocrit 40.4 % Mean Corpuscular Volume 90.4 fL Mean Corpuscular Hemoglobin 29.8 pg Mean Corpuscular Hemoglobin Concent 32.9 g/dl RDW Standard Deviation 48.8 fL RDW Coefficient of Variation 14.8 % Platelet Count 250 K/uL Mean Platelet Volume 9.8 fL Prothrombin Time 19.3 SECONDS Prothromb Time International Ratio 1.9 Sodium Level 141 mmol/L Potassium Level 4.0 mmol/L Chloride Level 102 mmol/L Carbon Dioxide Level 34 mmol/L Anion Gap 4.0 mmol/L Blood Urea Nitrogen 25 mg/dl Creatinine 1.05 mg/dl Est Creatinine Clear Calc Drug Dose 61.7 ml/min Estimated GFR () 66.9 Estimated GFR (Non- 57.7 BUN/Creatinine Ratio 24.1 Random Glucose 110 mg/dl Calcium Level 9.3 mg/dl Assessment & Plan Acute on chronic decompensated diastolic heart failure Present with worsening SOB CXR on admission showed cardiomegaly with evidence of congestive failure and interstitial edema. Received IV lasix Case discussed with Cardiology Dr. House Lasix 20mg BID resumed. Adding spironolactone 12.5 mg Monitor electrolytes Clinically improved Continue monitor 08/20 Continue Lasix 20mg BID Continue spironolactone 12.5 mg Monitor BMP Clinically stable Chronic obstructive pulmonary disease exacerbation Chronic respiratory failure on home O2, hx DARIUS CXR showed no infiltrates WBC trending down, afebrile in the last 24hr received Solumedrol in the ER Continue doxycycline 100mg BID P. A Fluter sp ablation Now on SNR with rate control Continue Metoprolol and Coumadin INR 1.9 today Hypertension BP stable Continue Amlodipine, lasix DM2 last Hba1c 8.1 on 07/01 On Lantus Continue insulin coverage Mood disorder stable on med Chronic pain on narcotics. Tobacco abuse. Counseling on smoking cessation DVT prophylaxis on Coumadin INR 1.9 Full Code Consultants: Cardio Current Inpatient Medications: Current Inpatient Medications Medications (Trade) Dose Ordered Sig/Artemio Route Start Time Stop Time Status Last Admin Dose Admin Doxycycline Hyclate (Vibramycin Cap) 100 mg BID PO 08/18/17 09:00 08/25/17 08:59 08/20/17 08:32 100 MG Acetaminophen (Tylenol Tab) 650 mg Q4H PRN PO 08/17/17 23:30 09/16/17 23:29 08/18/17 04:28 650 MG Nitroglycerin (Nitrostat Tab) 0.4 mg UD PRN SL 08/17/17 23:30 09/16/17 23:29 Insulin Aspart (novoLOG ASPART) SLIDING SCALE If C... ACHS SC 08/18/17 07:00 09/17/17 06:59 08/20/17 08:39 2 UNITS Glucose (Glucose 40% Gel) 15-30 GRAMS 15 GRAMS... UD PRN PO 08/17/17 23:30 09/16/17 23:29 Glucose (Glucose Chew Tab) 4-8 Tablets 4 Tabl... UD PRN PO 08/17/17 23:30 09/16/17 23:29 Dextrose (Dextrose 50% 50ML Syringe) 25-50ML OF 50% DW IV FOR... UD PRN IV 08/17/17 23:30 09/16/17 23:29 Glucagon (Glucagon Inj) 1 mg UD PRN SQ 08/17/17 23:30 09/16/17 23:29 Potassium Chloride (Klor-Con Tab) 20 meq BID PO 08/18/17 09:00 09/17/17 08:59 08/20/17 08:33 20 MEQ Amitriptyline HCl (Elavil Tab) 50 mg HS PO 08/18/17 21:00 09/17/17 20:59 08/19/17 21:33 50 MG Atorvastatin Calcium (Lipitor Tab) 40 mg HS PO 08/18/17 21:00 09/17/17 20:59 08/19/17 21:33 40 MG Cetirizine HCl (zyrTEC TAB) 10 mg QAM PO 08/18/17 09:00 09/17/17 08:59 08/20/17 08:33 10 MG Fentanyl (Duragesic Patch) 50 mcg Q72H TD 08/18/17 09:00 09/01/17 08:59 08/18/17 08:18 50 MCG Gabapentin (Neurontin Tab) 800 mg TID PO 08/18/17 09:00 09/17/17 08:59 08/20/17 08:32 800 MG Insulin Glargine (Lantus Solostar Pen) 20 units BID SC 08/18/17 09:00 09/17/17 08:59 08/20/17 08:39 20 UNITS Levothyroxine Sodium (Synthroid Tab) 50 mcg DAILYBB PO 08/18/17 06:00 09/17/17 05:59 08/20/17 06:18 50 MCG Metoclopramide HCl (Reglan Tab) 5 mg TIDM PO 08/18/17 07:30 09/17/17 07:59 08/20/17 08:33 5 MG Metoprolol Tartrate (Lopressor Tab) 100 mg BID PO 08/18/17 09:00 09/17/17 08:59 08/20/17 08:34 100 MG Multivitamins (Multivitamin Tab) 1 tab QAM PO 08/18/17 09:00 09/17/17 08:59 08/20/17 08:34 1 TAB Olanzapine (Zyprexa Tab) 2.5 mg HS PO 08/18/17 21:00 09/17/17 20:59 08/19/17 21:33 2.5 MG Pantoprazole Sodium (Protonix Tab) 40 mg DAILY PO 08/18/17 09:00 18 08:59 08/20/17 08:34 40 MG Trazodone HCl (Desyrel Tab) 150 mg HS PO 08/18/17 21:00 09/17/17 20:59 08/19/17 21:33 150 MG Venlafaxine HCl (effeXOR EXTENDED REL CAP) 225 mg QAM PO 08/18/17 09:00 09/17/17 08:59 08/20/17 08:32 225 MG Amlodipine Besylate (Norvasc Tab) 10 mg QAM PO 08/18/17 09:00 09/17/17 08:59 08/20/17 08:32 10 MG Warfarin Sodium (Coumadin Tab) 5 mg DAILY@16 PO 08/18/17 16:00 09/17/17 15:59 08/19/17 16:03 5 MG Morphine Sulfate (MoRPHine SULFATE INJ) 4 mg Q6H PRN IV 08/17/17 23:30 08/31/17 23:29 Tramadol HCl (Ultram Tab) not relieved by tylenol @ Q6H PRN PO 08/17/17 23:30 09/16/17 23:29 08/18/17 16:44 50 MG Docusate Sodium (coLACE CAP) 100 mg DAILY PO 08/18/17 09:00 09/17/17 08:59 08/20/17 08:34 100 MG Ipratropium Kyburz (Atrovent 0.02% 0.5MG/2.5ML Neb) 0.5 mg Q6R INH 08/18/17 03:00 09/17/17 02:59 08/20/17 07:46 0.5 MG Levalbuterol (Xopenex 1.25MG/ 0.5ML Neb) 1.25 mg Q6R INH 08/18/17 03:00 09/17/17 02:59 08/20/17 07:46 1.25 MG Ipratropium Kyburz (Atrovent 0.02% 0.5MG/2.5ML Neb) 0.5 mg Q4H PRN INH 08/18/17 01:00 09/17/17 00:59 Levalbuterol (Xopenex 1.25MG/ 0.5ML Neb) 1.25 mg Q4H PRN INH 08/18/17 01:00 09/17/17 00:59 Miscellaneous (Fentanyl Patch Remove & Waste) 1 ea Q3D@0859 N/A 08/18/17 08:59 09/17/17 08:58 08/18/17 08:07 1 EA Miscellaneous Information (Check Fentanyl Patch Placement) 1 ea QS N/A 08/18/17 08:00 09/17/17 07:59 08/20/17 08:00 1 EA Spironolactone (Aldactone Tab) 12.5 mg QAM PO 08/20/17 09:00 09/19/17 08:59 08/20/17 08:33 12.5 MG Furosemide (Lasix Tab) 20 mg BID17 PO 08/19/17 17:00 09/18/17 16:59 08/20/17 08:33 20 MG
[2017-08-20] MEDS ORDERED: SPR25 PO (12:20)
[2017-08-20] MEDS ORDERED: CLC100 PO (12:20)
[2017-08-20] MEDS ORDERED: POTA20TA16 PO (12:20)
[2017-08-20] MEDS ORDERED: DXY100 PO (12:20)
[2017-08-20] MEDS ORDERED: CMD5 PO (12:37)
--- NOTE | 2017-08-20 12:39 | Discharge Instructions ---
Discharge Instructions Date of Service Aug 20, 2017. Admission Reason for Admission: CHF Discharge Discharge Diagnosis / Problem: Acute on chronic decompensated diastolic heart failure, COPD exacerbation Discharge Goals Goal(s): Decrease discomfort, Improve function, Improve disease control Activity Recommendations Activity Limitations: resume your previous activity . Instructions / Follow-Up Instructions / Follow-Up Please follow up with your primary care provider Dr. Goins on 08/25 @ 11:00 am Check BMP within 1 week Complete antibiotic course with doxycycline Please follow up with the Coumadin clinic (INR today 1.9) Follow up a low salt diet and limited concentrated sugar intake Current Hospital Diet Patient's current hospital diet: Diabetes Type 2 Diet, Low Sodium Diet (2gm Na) Discharge Diet Recommended Diet: Low Sodium Diet (2gm Na), Diabetes Type 2 Diet Pending Studies Studies pending at discharge: no Medical Emergencies . Who to Call and When: Medical Emergencies: If at any time you feel your situation is an emergency, please call 911 immediately. . Non-Emergent Contact Non-Emergency issues call your: Primary Care Provider Call Non-Emergent contact if: you have any medication questions . . "Provider Documentation" section prepared by Elise Guillaume. . VTE Core Measure Inpt VTE Proph given/why not?: Warfarin (Coumadin), SCD's
== END 2017-08-20 13:15 | disposition home health service (06) | DRG 190 ==
LOC: C.EDA 20:59 → EDBD 20:59 → C.2T 23:03 → ENRESERV 23:14 → C.MED 08-19 00:03
PROVIDERS: ADMIT Internal Medicine; ATTEND Internal Medicine
DX: J44.1 Chronic obstructive pulmonary disease with (acute) exacerbation (principal); I50.33 Acute on chronic diastolic (congestive) heart failure; J96.10 Chronic respiratory failure, unspecified whether with hypoxia or hypercapnia; J44.9 Chronic obstructive pulmonary disease, unspecified; J45.909 Unspecified asthma, uncomplicated; I48.0 Paroxysmal atrial fibrillation; E11.9 Type 2 diabetes mellitus without complications; I27.81 Cor pulmonale (chronic); K21.9 Gastro-esophageal reflux disease without esophagitis; I11.0 Hypertensive heart disease with heart failure; E03.9 Hypothyroidism, unspecified; F31.9 Bipolar disorder, unspecified; G89.29 Other chronic pain; G47.33 Obstructive sleep apnea (adult) (pediatric); F17.210 Nicotine dependence, cigarettes, uncomplicated; Z51.81 Encounter for therapeutic drug level monitoring; Z79.899 Other long term (current) drug therapy; Z79.4 Long term (current) use of insulin; Z79.891 Long term (current) use of opiate analgesic; Z99.81 Dependence on supplemental oxygen; Z87.01 Personal history of pneumonia (recurrent); Z86.718 Personal history of other venous thrombosis and embolism; Z98.890 Other specified postprocedural states; Z83.3 Family history of diabetes mellitus; Z82.49 Family history of ischemic heart disease and other diseases of the circulatory system; Z83.79 Family history of other diseases of the digestive system

== ENCOUNTER → 2017-08-28 | Outpatient (CLI) | payer OTHER ==
[~2017-08-28] MED LIST changes: +CETI10TA84 PO; +DOCU100C31 PO; +EPP3/2 IM; +FNTTP50 TOP; +GABA-112 PO; +MULTTAB58 PO; -NVLGI/PEN SC; +POTA10CA28 PO; -POTA20TA16 PO; +SPIR25TA PO; +SPRIN/30 INH; +WARF5TAB7 PO
--- NOTE | 2017-08-28 12:11 | DIAGNOSTIC IMAGING REPORT ---
ULTRASOUND RIGHT UPPER EXTREMITY VENOUS CLINICAL HISTORY: Right hand swelling. COMPARISON STUDY: No priors. TECHNIQUE: Real-time, grayscale, and color Doppler sonography of the deep veins of the right upper extremity is performed. Compression and augmentation were utilized. FINDINGS: There is no sonographic evidence of deep venous thrombosis identified in the right upper extremity. The right internal jugular, axillary, and brachial veins are patent and normally compressible. Normal venous waveforms and augmentation are seen within the right subclavian vein. The cephalic and basilic veins are clear. The visualized radial and ulnar veins are patent. IMPRESSION: There is no sonographic evidence of deep venous thrombosis identified in the right upper extremity. Electronically signed by: Jame Batres M.D. 08/28/2017 12:09 PM Dictated Date/Time: 08/28/2017 12:09 PM
== END | disposition home or self-care (01) ==
LOC: C.ULTR 11:25
PROVIDERS: ATTEND Physical Medicine & Rehabilitation
DX: M79.89 Other specified soft tissue disorders (principal)

== ENCOUNTER → 2017-09-03 | Day surgery (SDC) | payer OTHER ==
[2017-08-26 10:25] VITALS: Ht 162.6 cm; Wt 87.3 kg
[~2017-09-03] VITALS: Ht 162.6 cm; Wt 87.3 kg
[~2017-09-03] MED LIST changes: +IOPAMIDOL INJ 61% 15 ML VIAL ONE; +LIDOCAINE HCL 1% MPF 5 ML VIAL ONE; +SODIUM CHLORIDE 0.9% INJ 10 ML VIAL ONE
--- NOTE | 2017-09-03 13:30 | History & Physical Bridge - SC ---
H&P Re-Evaluation Bridge Note: I have examined the patient, reviewed the History & Physical and in the interval since the performance of the History & Physical I have noted the following changes of clinical significance: No changes noted
[2017-09-03 13:51] VITALS: TEMP 37.2
--- NOTE | 2017-09-03 14:00 | Discharge Instructions ---
Discharge Instructions Date of Service Sep 03, 2017. Visit Reason for Visit: Lumbar Radiculopathy Discharge Discharge Diagnosis / Problem: right leg pain Discharge Goals Goal(s): Decrease discomfort, Improve function Medications Stopped Medications Name(s): coumadin stopped 08-30-17 Activity Recommendations Activity Limitations: resume your previous activity Anesthesia . Post Anesthesia Instructions: If you have had General Anesthesia or IV Sedation: * Do not drive today. * Resume driving when surgeon permits. * Do not make important decisions or sign legal documents today. * Call surgeon for: 1. Temperature elevations greater than 101 degrees F. 2. Uncontrollable pain. 3. Excessive bleeding. 4. Persistent nausea and vomiting. 5. Medication intolerance (nausea, vomiting or rash). * For nausea and vomiting use only clear liquids such as: tea, soda, bouillon until nausea subsides, then gradually increase diet as tolerated. * If you have any concerns or questions, call your surgeon's office. If physician is unavailable and it is an emergency, call 911 or go to the nearest emergency room. . Diet Recommendations Recommended Home Diet: resume previous diet Procedures Procedures Performed: Lumbar Epidural Steroid Injection Pending Studies Studies pending at discharge: no Medical Emergencies . Who to Call and When: Medical Emergencies: If at any time you feel your situation is an emergency, please call 911 immediately. . Non-Emergent Contact Non-Emergency issues call your: Specialist . . "Provider Documentation" section prepared by Joce Collins. .
--- NOTE | 2017-09-03 14:13 | OPERATIVE REPORT ---
DATE OF OPERATION: 09/03/2017 PREOPERATIVE DIAGNOSIS: Lumbar disc intravertebral disc disease with a right L5 radiculopathy. POSTOPERATIVE DIAGNOSIS: Same. PROCEDURE: Right paramedian L5-S1 intralaminar epidural steroid injection under fluoroscopic guidance. SURGEON: Dr. Joce Collins. INDICATIONS: The patient is a 61-year-old white female who has chronic low back pain with radicular complaints. At times it requires her to use a wheelchair to get around for mobility. She presents today for an epidural injection to provide her with some relief of the chronic right lower extremity radiculopathy pain. PHYSICAL EXAMINATION: GENERAL: Pleasant female seated comfortably. MUSCULOSKELETAL: Lumbar paraspinal muscles were palpated and noted be nontender. She has normal motor and sensory examination with the exception of a positive seated straight leg raise of her right lower extremity. CONSENT: Verbal and written consent was obtained from the patient. Risks and benefits were reviewed. Risks include but are not limited to epidural abscess, epidural hematoma, allergic reaction, dural puncture. The patient wishes to proceed. PROCEDURE: The patient was taken back to the special procedures room of the [facility]. She was maintained in a prone position. Backside was cleansed with Betadine x3 and a dry sterile dressing was applied. Fluoroscope was used to identify the L5-S1 intralaminar space. Overlying skin on the right side was anesthetized with 4 mL of lidocaine 1% with a 25 gauge 1.5-inch needle. A 22-gauge 3.5-inch Tuohy needle was then directed down towards the intralaminar space. It was advanced under lateral fluoroscopic guidance and loss of resistance was noted at a depth of just under 9 cm. Isovue-300 contrast 1 mL was injected in which demonstrated epidural uptake pattern. This was confirmed with lateral view. She then underwent injection after negative aspiration of 40 mg of Depo-Medrol and 4 mL of preservative free sodium chloride. Injection was fairly well tolerated. DISPOSITION: 1. The patient is taken out into the discharge recovery area where she will be discharged home once discharge criteria have been met. 2. Follow up in the [facility] office in 4 weeks' time. I attest to the content of the Intraoperative Record and any orders documented therein. Any exception s are noted below.
[2017-09-03 14:18] VITALS: BP 144/79; O2SAT 95
== END | disposition home or self-care (01) ==
LOC: X.SURG 12:26
PROVIDERS: ATTEND Physical Medicine & Rehabilitation
DX: M51.16 Intervertebral disc disorders with radiculopathy, lumbar region (principal)

== ENCOUNTER → 2017-09-30 | Outpatient (CLI) | payer OTHER ==
[~2017-09-30] VITALS: Ht 162.6 cm; Wt 93.6 kg
[~2017-09-30] MED LIST changes: -IOPAMIDOL INJ 61% 15 ML VIAL ONE; -LIDOCAINE HCL 1% MPF 5 ML VIAL ONE; -SODIUM CHLORIDE 0.9% INJ 10 ML VIAL ONE
[2017-09-30 14:29] VITALS: BP 118/68; PULSE 70; Ht 162.6 cm; Wt 93.6 kg
== END | disposition home or self-care (01) ==
LOC: C.NEUR 13:50
PROVIDERS: ATTEND Physician Assistant Medical
DX: G47.30 Sleep apnea, unspecified (principal); R06.83 Snoring; R53.83 Other fatigue; I48.91 Unspecified atrial fibrillation; I27.81 Cor pulmonale (chronic); J44.9 Chronic obstructive pulmonary disease, unspecified; E11.9 Type 2 diabetes mellitus without complications

== ENCOUNTER → 2017-10-14 | Outpatient (CLI) | payer OTHER ==
[~2017-10-14] MED LIST changes: +RBX750 PO; +RXC5 PO; +TRAZ-122 PO; +VTMD1000 PO; +WARF-284 PO; +ZRX25 PO
--- NOTE | 2017-10-15 05:59 | SPLIT NIGHT TECHNICIAN REPORT ---
[facility] Split Night Polysomnogram - Blueprint Engineer Report Study date: 10/14/2017 Referring Physician: RUSS MCINTOSH Name: ALVARO ROBERTS Blueprint Engineer: TINO Longo. Date of : 1955 Height: 62 years, Height 5' 4" Sex: Female Weight: 206 lbs Age: 62 Neck Circum: 16 in BMI: Medications: 35.36 ADVAIR HFA 115-21 MCG/ACT, ALPRAZOLAM 0.5 MG, AMLODIPINE 10 MG, ASPIRIN 81 MG, BENTYL 10 MG, CALCITRIOL 0.25 MG, CETIRIZINE 10 MG, COLACE 100 MG, COUMADIN, EFFEXOR 150 MG, EFFEXOR 75 MG, EPIPEN, FENTANYL 75 MG/HR, FUROSEMIDE 40 MG, GABAPENTIN 400 MG, IMODIUM, LANTUS 100 UNIT/ML, LEVOTHYROXINE 50 MCG, LIPITOR 40 MG, LITHIUM 300 MG, LOMOTIL 2.5-0.025 MG, METHOCARBAMOL 500 MG, METHOCLOPRAMIDE 5 MG, METOPROLOL 50 MG, MICRO-K 10 MEQ, MULTI VIT, NEXIUM 40 MG, ONDANSETRON 8 MG, OXYCODONE, PROVENTIL HFA, RANITIDINE 300 MG, SPIRIVA HANDIHALER 18 MCG, VOLTAREN 1%, ZOLPIDEM 5 MG Patient History 61 yr-old female here for a baseline/split study. She has had previous sleep testing. She used BiPAP about three or four years ago. Since then she has not used any PAP device. She has COPD and uses O2. Her Dallas scale 9. The test was started on room air. ETCO2 testing is included in this study. Room 1 Parameters Monitored NPSG: E1-M2, E2-M1, Fp1-M2, Fp2-M1, F3-M2, F4-M2, F4-M1, C3-M2, C4-M2, C4-M1, O1-M2, O2-M2, O2-M1, T3-M2, T4-M1, P3-M2, P4-M1, CHIN1, CHIN2, HR, EKG, Legs, PFLOW, SNOR, FLOW, CFLOW, Tidal Volume, THOR, ABDO, SpO2, PLTH, CPRESS, ETCO2 Wave, ETCO2, pH SLEEP SUMMARY DATA DIAGNOSTIC TREATMENT Lights Out: 9:33:23 PM 12:14:23 AM Lights On: 12:01:53 AM 5:39:23 AM Total Recording Time (TRT): 148.5 min. 325.0 min. Total Sleep Time (TST): 136.0 min. 312.5 min. NREM Time: 93.5 min. 234.5 min. REM Time: 42.5 min. 78.0 min. Sleep Period Time (SPT): 136.5 min. 325.0 min. Sleep Efficiency (SE): 92 % 96 % Sleep Latency: 12.0 min. 0.0 min. Arousal Index: 20.3 4.8 PAP Treatment Levels: 8/4, 10/6, 11/6, 12/7, 14/9, 15/10, 17/10, 18/10 * Optimal Pressure(s) SLEEP STAGING DATA DIAGNOSTIC TREATMENT Duration (min) TST % Duration (min) TST % Stage Wake: 12.5 min. -- 12.5 min. -- WASO: 0.5 min. -- 12.5 min. -- NREM: 93.5 min. 69 % 234.5 min. 75 % Stage N1: 8.0 min. 6 % 4.0 min. 1 % Stage N2: 49.0 min. 36 % 157.0 min. 50 % Stage N3: 36.5 min. 27 % 73.5 min. 24 % REM: 42.5 min. 31 % 78.0 min. 25 % POSITIONAL DATA Event Count Index Event Count Index Supine: 30 41.4 136 44.3 Supine NREM: 4 48.2 114 43.0 Supine REM: 26 41 22 53 Non-Supine: 31 19.5 67 31.3 Non-Supine NREM: 28 18.3 61 48.5 Non-Supine REM: 3 45.0 6 6.8 AROUSAL SUMMARY DATA: Event Count Index Event Count Index Apnea Arousals: 3 4.0 3 18.6 Hypopnea Arousals: 5 2.2 3 0.6 Snore Arousals: 14 6.2 0 0.0 PLM Arousals: 0 0.0 0 0.0 Non-Specific Arousals: 23 10.1 15 2.9 Total Arousals: 46 20.3 25 4.8 MYOCLONUS (PLM) Event Count Index Event Count Index PLM: 0 0.0 11 2.1 PLM AROUSAL: 0 0.0 0 0.0 PLM W/O AROUSAL 0 0.0 11 2.1 PLM W/RESP EVENT 0 0.0 0 0.0 MYOCLONUS (PLM) Event Count Index Event Count Index LM: 1 5.3 54 10.4 LM AROUSAL: 1 0.4 5 1.0 LM W/O AROUSAL LM W/RESP EVENT LM NON SPECIFIC 10 4.4 53 10.2 HEART RATE DATA DIAGNOSTIC TREATMENT Sleep (bpm): 74 64 REM (bpm): 81 85 NREM (bpm): 84 85 Tachycardia Count: 0 0 Tachycardia Duration: 0.00 0 Bradycardia Count: 0 0 Bradycardia Duration: 0.00 0 DIAGNOSTIC PORTION TREATMENT PORTION RESPIRATORY DATA Event Count Index Event Count Index AHI: -- 26.5 -- 39.0 RDI: -- 26.9 -- 39 Obstructive Apnea: 6 2.6 31 6.0 Central Apnea: 2 0.9 56 10.8 Mixed Apnea: 1 0.4 10 1.9 Hypopnea: 51 22.5 106 20.4 RERA: 1 0.4 0 0.0 Total Apneas: 9 4.0 97 18.6 RESPIRATORY DATA REM NREM SLEEP REM NREM SLEEP Supine Position: Obstructive Apneas: 2 0 2 9 21 30 Central Apneas: 0 0 0 4 29 33 Mixed Apneas: 0 0 0 1 8 9 Hypopneas: 24 4 28 8 56 64 RERA 0 0 0 0 0 0 Total Supine Events: 26 4 30 22 114 136 Supine AHI: 41 48.2 41.4 53 43.0 44.3 Supine RDI: 40.5 48.2 41.4 52.8 43.0 44.3 REM NREM SLEEP REM NREM SLEEP Non-Supine Position: Obstructive Apneas: 1 3 4 0 1 1 Central Apneas: 0 2 2 0 23 23 Mixed Apneas: 0 1 1 0 1 1 Hypopneas: 2 21 23 6 36 42 RERA 0 1 1 0 0 0 Total Supine Events: 3 28 31 6 61 67 Supine AHI: 45.0 18.3 19.5 6.8 48.5 31.3 Supine RDI: 45.0 19.0 20.1 6.8 48.5 31.3 OXYGEN DESTAURATION DATA: Event Count Index Event Count Index REM Desaturations: 45 63.5 54 41.5 NREM Desaturations: 65 41.7 245 62.7 SNORE DATA DIAGNOSTIC TREATMENT Snore Time: 36.4 12:14:23 AM Snore TST%: 21 2 Snore Arousal Count: 14 0 Snore Arousal Index: 6.2 0.0 Desaturation Event Summary: Minimum %SpO2 Event Count Mean/Min/Max Duration(sec.) Desaturation Index % Time In Bed > 90 94 18.5 / 9.3 / 51.5 364.3 3.4 86 - 90 323 18.8 / 4.3 / 60.0 137.9 30.4 81 - 85 178 17.8 / 5.5 / 53.8 41.1 56.2 76 - 80 12 14.7 / 5.5 / 37.8 17.7 8.8 71 - 75 0 N/A 0.0 1.1 66 - 70 0 N/A 0.0 0.1 61 - 65 0 N/A 0.0 0.0 56 - 60 0 N/A 0.0 0.0 51 - 55 0 N/A 0.0 0.0 < 50 0 N/A 0.0 0.0 OXYGEN SATURATION DATA DIAGNOSTIC TREATMENT SpO2 Mean Sleep: 83 % 85 % SpO2 Mean REM: 81 % 85 % SpO2 Mean NREM: 84 % 85 % SpO2 Minimum Sleep: 67 % 70 % SpO2 Minimum REM: 67 % 74 % SpO2 Minimum NREM: 74 % 70 % Time Below 90% (TST): 135.3 285.6 Time Below 88% (TST): 131.7 252.3 Total REM NREM Awake <50% 0.0 min. 0.0 min. 0.0 min. 0.0 min. 51 - 60% 0.0 min. 0.0 min. 0.0 min. 0.0 min. 61 - 70% 0.5 min. 0.2 min. 0.2 min. 0.0 min. 71 - 80% 45.6 min. 17.6 min. 27.6 min. 0.3 min. 81 - 90% 400.4 min. 101.3 min. 285.0 min. 14.1 min. 91 - 100% 15.5 min. 0.5 min. 14.8 min. 0.2 min. Average 84 84 84 85 Minimum SpO2 67 67 70 80 Desaturation Event Index 52.7 49.3 56.7 16.8 # Desat. Events below 89% 416 99 310 7 Time(%) with Saturation below 89% 90.8 24.6 63.2 3.0 Time(min.) with Saturation below 89% 419.5 113.7 291.7 14.1 Recording Blueprint Engineer Comments: Ms. Roberts slept in the left and supine positions. No cardiac arrhythmias were noted. Some PLMs were noted. No bruxism noted. Snoring was noted and scored as a 4 on a scale of 1 through 5. (0=no snoring, 5=snoring loud enough to be heard through a closed door or down the zhao way) At 12:12 am, she met specific Split-Night criteria during the diagnostic portion of this study. BiPAP (per the doctor's order) was initiated at +8/4 CMH2O and up-titrated to a level of +18/10 CMH2O, BiFlex 3 with a rate of 11 BPM. A Quattro Air full face mask size small from [employer] was used during titration She awoke to use the restroom one time during the night. Ms. Roberts stated that she slept about the same as usual. The final report will be interpreted and signed by a sleep physician. The completed physician report will then be placed in the patient medical record. Therapy Event: Therapy (cm H20) 0 8/ 1007/21 18 Total Time at Pressure (min.) 148.5 4.7 58.6 24.7 49.0 35.6 57.5 29.4 65.5 TST at Pressure (min.) 136.0 4.7 58.6 24.7 49.0 35.6 45.0 29.4 65.5 # Periods 1 1 1 1 1 1 1 1 1 Sleep Onset (min.) 12.0 0.0 0.0 0.0 0.0 0.0 0.0 0.0 0.0 REM Onset (min.) 101.0 N/A N/A N/A 37.5 0.0 8.4 9.9 0.0 Sleep Efficiency % 91 100 100 100 100 100 78 100 100 Wakefulness (%) 8.4 0.0 0.0 0.0 0.0 0.0 21.7 0.0 0.0 Wakefulness (min.) 12.5 0.0 0.0 0.0 0.0 0.0 12.5 0.0 0.0 NREM 1 (%) 5.4 0.0 0.0 4.1 1.0 2.8 0.9 0.0 1.5 NREM 1 (min.) 8.0 0.0 0.0 1.0 0.5 1.0 0.5 0.0 1.0 NREM 2 (%) 33.0 63.7 11.1 91.1 75.5 67.7 54.6 8.5 45.8 NREM 2 (min.) 49.0 3.0 6.5 22.5 37.0 24.1 31.4 2.5 30.0 NREM 3 (%) 24.6 36.3 88.9 4.8 0.0 0.0 17.6 25.1 1.5 NREM 3 (min.) 36.5 1.7 52.1 1.2 0.0 0.0 10.1 7.4 1.0 REM (%) 28.6 0.0 0.0 0.0 23.5 29.5 5.2 66.3 51.2 REM (min.) 42.5 0.0 0.0 0.0 11.5 10.5 3.0 19.5 33.5 # Arousals 46 0 0 2 5 9 4 2 3 Arousal Index 20.3 0.0 0.0 4.9 6.1 15.2 5.3 4.1 2.7 # Snore 1,298 16 14 26 94 18 19 6 5 Snore Index 572.6 203.9 14.3 63.3 115.0 30.3 25.3 12.3 4.6 AHI 26.5 102.0 17.4 56.0 56.3 50.5 81.4 30.7 2.7 AHI Supine 41.4 102.0 17.4 56.0 56.3 50.5 63.3 N/A N/A AHI Non-Supine 19.5 N/A N/A N/A N/A N/A 87.4 30.7 2.7 NREM AHI 19.9 102.0 17.4 56.0 57.6 47.7 84.3 60.7 3.8 REM AHI 40.9 N/A N/A N/A 52.2 57.1 40.0 15.4 1.8 RDI 26.9 102.0 17.4 56.0 56.3 50.5 81.4 30.7 2.7 # Obstructive 6 5 0 4 10 8 4 0 0 # Central Ap 2 0 5 0 12 13 26 0 0 # Mixed 1 1 0 2 5 1 1 0 0 # Hypopneas 51 2 12 17 19 8 30 15 3 RERAS 1 0 0 0 0 0 0 0 0 Total Respiratory Events 61 8 17 23 46 30 61 15 3 Time Below SpO2 89.00% (min.) 134.3 3.0 57.6 23.7 45.3 31.3 25.2 20.5 64.5 Mean NREM SpO2 (%) 84 85 82 83 84 86 88 89 84 Mean REM SpO2 (%) 81 N/A N/A N/A 85 85 86 87 85 Mean Sleep SpO2 (%) 83 85 82 83 84 86 88 87 85 Min NREM SpO2 (%) 74 74 72 70 72 74 76 86 81 Min REM SpO2 (%) 67 N/A N/A N/A 74 78 78 79 79 Position Supine (min.) 43.5 4.7 58.6 24.7 49.0 35.6 11.4 0.0 0.0 Position Non-supine (min.) 92.5 0.0 0.0 0.0 0.0 0.0 33.6 29.4 65.5 LM Index Sleep 5.3 0.0 1.0 0.0 13.5 26.9 12.0 22.5 15.6 LM Index NREM 4.5 0.0 1.0 0.0 9.6 28.6 10.0 0.0 0.0 LM Index REM 7.1 N/A N/A N/A 26.1 22.9 40.0 33.9 30.4 Mean Heart Rate (bpm) 74 71 63 61 61 61 62 64 69 Min Heart Rate (bpm) 64 65 58 55 57 58 57 57 63 CPAP REPORT Therapy Detail Time / Page # Comment BiLevel 8/4 cm H2O Full Face Mask Flex Pressure Relief Humidifier on 12:12:34 AM / pg. 496 SHE HAS HAD OVER 2 HOURS OF SLEEP AND HER AHI IS 25. DUE TO HER MEDICAL PROBLEMS AND LOW O2 SATS, SPLITTING AT 20 INSTEAD OF 40. BiLevel 10/6 cm H2O Full Face Mask Flex Pressure Relief Humidifier on 12:19:05 AM / pg. 509 INCREASED EPAP FOR OBSTRUCTIVE APNEAS AND INCREASED IPAP TO KEEP THE PRESSURE DIFFERENTIAL OF 4 BiLevel 11/6 cm H2O Full Face Mask Flex Pressure Relief Humidifier on 1:17:42 AM / pg. 626 INCREASED IPAP FOR HYPOPNEAS BiLevel 12/7 cm H2O Full Face Mask Flex Pressure Relief Humidifier on 1:42:21 AM / pg. 675 INCREASED EPAP FOR OBSTRUCTIVE APNEAS AND INCREASEd IPAP FOR HYPOPNEAS BiLevel 14/9 cm H2O Full Face Mask Flex Pressure Relief Humidifier on 2:31:23 AM / pg. 774 INCREASED EPAP FOR OBSTRUCTIVE APNEAS AND INCREASED IPAP FOR HYPOPNEAS BiLevel 15/10 cm H2O Full Face Mask Flex Pressure Relief Humidifier on 3:07:01 AM / pg. 845 INCREASED EPAP FOR OBSTRUCTIVE APNEAS AND INCREASED IPAP FOR HYPOPNEAS BiLevel 15/10 cm H2O, Rate 11 bpm Full Face Mask Flex Pressure Relief Humidifier on 3:56:21 AM / pg. [phone] DUE TO CENTRAL APNEAS NOW, TRYING A RATE OF 11 BPM BiLevel 17/10 cm H2O, Rate 11 bpm Full Face Mask Flex Pressure Relief Humidifier on 4:04:30 AM / pg. [phone] IMMEDIATELY AFTER THE RATE WAS ADDED THE CENTRAL APNEAS TURNED INTO HYPOPNEAS. INCREASED IPAP FOR HYPOPNEAS BiLevel 18/10 cm H2O, Rate 11 bpm Full Face Mask Flex Pressure Relief Humidifier on 4:33:52 AM / pg. [phone] INCREASED IPAP FOR HYPOPNEAS
--- NOTE | 2017-10-15 11:15 | POLYSOMNOGRAPH REPORT ---
CLINICAL DATA: The patient is a 62-year-old female with BMI of 35.4 referred for a split night study. She has COPD and hypoxemia with a history of DARIUS. She was previously on BiPAP, but stopped using it several years ago. She is oxygen. This was a split night study. SLEEP ARCHITECTURE: For the diagnostic portion of the study, sleep period time was 136.5 minutes. Total sleep time was 136 minutes divided between 93.5 minutes of non-REM sleep and 42.5 minutes of REM sleep. Sleep latency was 12 minutes. Sleep efficiency was 92%. Sleep consisted of stage N1 6%, stage N2 36%, stage N3 27%, and REM 31%. For the treatment portion of the study, sleep period time was 325 minutes. Total sleep time was 312.5 minutes divided between 234.5 minutes of non-REM sleep and 78 minutes of REM sleep. Sleep latency was immediate. Sleep efficiency was 96%. Sleep consisted of stage N1 1%, stage N2 50%, stage N3 24%, and REM 25%. AROUSAL DATA: Prior to treatment, 46 arousals were recorded for an index of 20.3 per hour. During treatment, 25 arousals were recorded for an index of 4.8 per hour. PLM DATA: Prior to treatment, 10 limb movements during sleep were noted for an index of 4.4 per hour. During treatment, 54 limb movements during sleep were noted for an index of 10.4 per hour. EKG: Heart rates ranged from 64-85 beats per minute. No arrhythmias were noted. RESPIRATORY DATA: Moderate sleep apnea was diagnosed prior to treatment. The diagnostic AHI was 26.5. There were 6 obstructive, 2 central, and 1 mixed apneic episode. There were 51 hypopneic episodes. The average AHI during treatment was 39. There were 31 obstructive, 56 central, and 10 mixed apneic episodes. There were 106 hypopneic episodes. OXIMETRY DATA: Nocturnal hypoxemia was seen. Oxygen wade prior to treatment was 67% during REM sleep. Mean saturation for the treatment was 85%. MATERIALS DIRECTOR'S COMMENTS AND TREATMENT SUMMARY: The patient slept in the left and supine positions. Snoring was severe, rated 4 on a scale of 1-5. At 12:12 a.m., she met split night criteria and was started on BIPAP 8/4. She was titrated up to her final pressure setting of BiPAP 18/10, Biflex 3 with a backup rate of 11 breaths per minute using the Quattro Air full facemask size small from [employer]. At her final pressure setting, she slept for 65.5 minutes with an AHI of 2.7. She continued to have some residual nocturnal hypoxemia and may require oxygen 1-2 liters per minute to correct that as well. IMPRESSION: Moderate sleep apnea/hypopnea, severe nocturnal hypoxemia improved on BiPAP 18/10, Biflex 3, backup rate of 11 breaths per minute. The patient had improvement of her sleep apnea but continued oxygen desaturation which will require the addition of oxygen 1-2 liters per minute at night. RECOMMENDATIONS: The patient should be started on BiPAP and oxygen at the above noted settings. Follow within 90 days to document efficacy and compliance as recommended. MTDD
== END | disposition home or self-care (01) ==
LOC: C.NEUR 20:00
PROVIDERS: ATTEND Physician Assistant Medical
DX: G47.33 Obstructive sleep apnea (adult) (pediatric) (principal); R06.83 Snoring; J44.9 Chronic obstructive pulmonary disease, unspecified

== ENCOUNTER 2017-10-21 20:38 | Inpatient (IN) | payer OTHER ==
[~2017-10-21] VITALS: Ht 162.6 cm; Wt 91.8 kg
[~2017-10-21 20:38] MED LIST changes: -RBX750 PO; -RXC5 PO; -TRAZ-122 PO; -VTMD1000 PO; -WARF-284 PO; -ZRX25 PO
--- NOTE | 2017-10-21 21:30 | DIAGNOSTIC IMAGING REPORT ---
CHEST ONE VIEW PORTABLE HISTORY: 62 years-old Female Chest pain acute atypical chest pain COMPARISON: Portable chest radiograph 08/17/2017 TECHNIQUE: Portable AP view of the chest FINDINGS: Cardiac silhouette is again moderately enlarged. Prosthetic cardiac valve redemonstrated. Atherosclerosis of the aorta. No pneumothorax or large pleural effusion. No lobar airspace consolidation. There are hazy bibasilar opacities suggesting atelectasis. Mild interstitial pulmonary edema is noted with pulmonary vascular congestion. Probable emphysematous changes noted. Bones of the chest appear grossly intact. Surgical clips project over the right upper chest. IMPRESSION: 1. Cardiomegaly with mild pulmonary edema. 2. Bibasilar opacities suggest atelectasis. The above report was generated using voice recognition software. It may contain grammatical, syntax or spelling errors. Electronically signed by: Ye Alva M.D. 10/21/2017 9:28 PM Dictated Date/Time: 10/21/2017 9:27 PM
--- NOTE | 2017-10-21 21:59 | EMERGENCY ROOM VISIT NOTE ---
History Report prepared by [place]: Prasanna Ramsey Under the Supervision of: Dr. Austin Griffiths M.D. First contact with patient: 21:39 Chief Complaint: CHEST PAIN Stated Complaint: cp Nursing Triage Summary: Pt arrived via ambulance ALS. Pt states that she was sitting on the couch around 1800 and started to have sharp, stabbing pain in her midsternal region. Pt states the pain was intermittent. Pt also became SOB. The pt is on 3lpm at home. Pt pain is reproducable to palpation. Pt rates the pain a 6 out of 10 on pain scale. Pts lungs are clear but diminished bilat thru bases Pt was given 324mg aspirin and 2 nitro sprays by EMS History of Present Illness The patient is a 62 year old female who presents to the Emergency Room with complaints of constant upper-right chest pain beginning 1700 today. The patient states that her symptoms are not as bad as when she was previously in the emergency room. She notes that she has had symptoms similar to her current symptoms due to her CHF. She reports that her symptoms mildly worsen when she breathes. She also complains of a mild cough and a possible fever, but is unsure because she did not take her temperature. She denies any trauma and pain/ swelling in her legs. The patient states that she is currently taking Coumadin. Source of History: patient, spouse/significant other Onset: 1700 today Position: chest (upper-right) Timing: constant Modifying Factors (Worsening): breathing (mildly) Associated Symptoms: + cough (mild) Note: She also complains of a possible fever, but did not take her temperature. She denies any trauma and pain/swelling in her legs. Review of Systems See HPI for pertinent positives & negatives. A total of 10 systems reviewed and were otherwise negative. Past Medical & Surgical Medical Problems: (1) Acute electrocardiogram changes (2) Asthma (3) Atrial fibrillation (4) Bipolar disorder (5) C. difficile colitis (6) CHF (congestive heart failure) (7) Chronic abdominal pain (8) Chronic cor pulmonale (9) Chronic pain (10) Chronic respiratory failure (11) COPD with exacerbation (12) COPD, severe (13) Cor pulmonale (chronic) (14) Depression (15) DM type 2 (diabetes mellitus, type 2) (16) DVT (deep venous thrombosis) (17) Gastroparesis (18) GERD (gastroesophageal reflux disease) (19) History of ear infection (20) HTN (hypertension) (21) Hypokalemia (22) Hypothyroidism (23) [place] toxicity (24) DARIUS on CPAP (25) Osteoarthritis (26) PAF (paroxysmal atrial fibrillation) (27) Pneumonia Surgical Problems: (1) H/O: hysterectomy (2) Hx of appendectomy (3) Hx of cholecystectomy (4) Hx of lumpectomy (5) Hx of mitral valve repair (6) Hx of tubal ligation (7) Hx of umbilical hernia repair Old medical records were reviewed. Nurse's notes were reviewed and I agree with. Family History Diabetes mellitus MOTHER FH: Crohn's disease SISTER Hypertension MOTHER Social History Smoking Status: Current Every Day Smoker Alcohol Use: none Drug Use: none Marital Status: Housing Status: lives with significant other Occupation Status: disabled Current/Historical Medications Scheduled Amitriptyline HCl (Amitriptyline HCl), 50 MG PO HS Amlodipine Besylate (Amlodipine Besylate), 10 MG PO QAM Atorvastatin (Lipitor), 40 MG PO HS Calcitriol (Calcitriol), 0.5 MCG PO 3XWK Cetirizine (Zyrtec), 10 MG PO QAM Docusate Sodium (Docusate Sodium), 1 CAP PO AFTERNOON Fentanyl (Duragesic), 50 MCG TOP [id number] Fluticasone Prop/Salmeterol (Advair Diskus 250/50 60 Dose), 1 PUFF INH BID Furosemide (Lasix), 20 MG PO BID Gabapentin (Gabapentin), 800 MG PO TID Gabapentin (Neurontin), 100 MG PO TID Home O2 Therapy (Oxygen), 3 LITERS NA CONTINOUS Insulin Glargine (Lantus Solostar), 16 UNITS SC BID Levothyroxine Sodium (Synthroid), 50 MCG PO QAM Metoclopramide Hcl (Reglan), 5 MG PO TIDM Metoprolol Tartrate (Lopressor) (Lopressor), 100 MG PO BID Multiple Vitamin (Multivitamin), 1 TAB PO QAM Olanzapine (Olanzapine), 2.5 MG PO HS Pantoprazole (Protonix), 40 MG PO QAM Potassium Chloride (Micro-K Ext Rel), 10 MEQ PO QAM Spironolactone (Aldactone), 0.5 TAB PO QAM Tiotropium [place] (Spiriva Handihaler), 1 CAP INH DAILY Trazodone Hcl (Trazodone), 150 MG PO HS Venlafaxine Hcl (Effexor Extended Rel), 225 MG PO QAM Warfarin Sod (Jantoven), 5 MG PO 2XWK Warfarin Sod (Jantoven), 5 MG PO 5XWK Scheduled PRN Epinephrine (Epipen), 0.3 MG IM UD PRN for ALLERGIC REACTION Ipratropium [place] (Ipratropium [place]), 1 VIAL NEB Q6H PRN for Shortness of Breath Levalbuterol Hcl (Levalbuterol Hcl), 1.25 MG NEB Q6H PRN for SOB/Wheezing Lorazepam (Lorazepam), 0.5 MG PO UD PRN for Anxiety/Agitation Allergies Coded Allergies: BEE STING (Verified Allergy, Severe, SWELLING, 09/03/17) Lisinopril (Verified Allergy, Intermediate, FACE SWELLING, 09/03/17) Potato (Verified Allergy, Intermediate, BBQ chips - facial swelling, 09/03) Metronidazole (Verified Allergy, Mild, FACE SWELLING, 09/03/17) [place] (Verified Allergy, Mild, HIVES, 09/03/17) Alprazolam (Verified Allergy, Unknown, RED FACE, FACE SWELLING, 09/03/17) Lactose (Verified Adverse Reaction, Intermediate, VOMTING DIARRHEA ABDOMINAL PAIN, 09/03/17) Prednisone (Verified Adverse Reaction, Mild, unknown, 09/03/17) Colesevelam (Verified Adverse Reaction, Unknown, unknown, 09/03/17) [place] (Verified Adverse Reaction, Unknown, jitters, 09/03/17) Physical Exam Vital Signs Date Time Temp Pulse Resp B/P (MAP) Pulse Ox O2 Delivery O2 Flow Rate FiO2 10/22/17 01:09 63 20 129/53 98 Room Air 3.0 10/22/17 01:05 67 10/21/17 23:49 36.8 80 20 152/59 98 Room Air 3.0 10/21/17 22:25 70 20 124/46 98 Room Air 10/21/17 21:21 79 10/21/17 21:16 95 Nasal Cannula 3.0 10/21/17 21:15 95 Nasal Cannula 3.0 10/21/17 20:53 95 Nasal Cannula 3.0 2/6/18 20:53 36.7 98 20 110/55 95 Nasal Cannula 3.0 10/21/17 20:52 3 Nasal Cannula Physical Exam General: Non-ill appearing older female in no acute distress. HEENT: Normal cephalic atraumatic. Pupils are equal round and reactive to light. Extraocular movements are intact. Oropharynx is pink with moist mucous membranes. No swelling of the mouth lips or tongue. Neck: Supple with a midline trachea. No meningeal signs or stiffness, no JVD or bruits. No Stridor. Chest: Clear to auscultation bilaterally. No wheezes or rhonchi. No increased work of breathing. Exquisitely tender to palpation. Heart: regular rate and rhythm. Abdomen: Soft nontender, nondistended without rebound guarding or rigidity. Extremities: No cyanosis clubbing or edema. No calf tenderness or assymetry Spine/Back. Non tender to palpation. No CVA tenderness Skin: Good turgor without rashes. Neurologic exam: Cranial nerves two through 12 are intact. Motor and sensation are intact and symmetrical throughout. Medical Decision & Procedures ER Provider Diagnostic Interpretation: Radiology results as stated below per my review and radiologist interpretation: CHEST ONE VIEW PORTABLE HISTORY: 62 years-old Female Chest pain acute atypical chest pain COMPARISON: Portable chest radiograph 08/17/2017 TECHNIQUE: Portable AP view of the chest FINDINGS: Cardiac silhouette is again moderately enlarged. Prosthetic cardiac valve redemonstrated. Atherosclerosis of the aorta. No pneumothorax or large pleural effusion. No lobar airspace consolidation. There are hazy bibasilar opacities suggesting atelectasis. Mild interstitial pulmonary edema is noted with pulmonary vascular congestion. Probable emphysematous changes noted. Bones of the chest appear grossly intact. Surgical clips project over the right upper chest. IMPRESSION: 1. Cardiomegaly with mild pulmonary edema. 2. Bibasilar opacities suggest atelectasis. The above report was generated using voice recognition software. It may contain grammatical, syntax or spelling errors. Electronically signed by: Ye Alva M.D. 10/21/2017 9:28 PM Laboratory Results 10/21/17 22:18 10/21/17 22:18 Test 10/21/17 22:18 10/22/17 01:00 Red Blood Count 3.74 M/uL (4.2-5.4) Mean Corpuscular Volume 88.0 fL (80-100) Mean Corpuscular Hemoglobin 30.2 pg (25-34) Mean Corpuscular Hemoglobin Concent 34.3 g/dl (32-36) RDW Standard Deviation 43.9 fL (36.4-46.3) RDW Coefficient of Variation 13.7 % (11.5-14.5) Mean Platelet Volume 9.5 fL (7.4-10.4) Prothrombin Time 25.0 SECONDS (9.0-12.0) Prothromb Time International Ratio 2.4 (0.9-1.1) Activated Partial Thromboplast Time 39.7 SECONDS (21.0-31.0) Partial Thromboplastin Ratio 1.5 Anion Gap 6.0 mmol/L (3-11) Est Creatinine Clear Calc Drug Dose 61.8 ml/min Estimated GFR () 64.2 Estimated GFR (Non- 55.4 BUN/Creatinine Ratio 19.4 (10-20) Calcium Level 8.6 mg/dl (8.5-10.1) Total Bilirubin 0.2 mg/dl (0.2-1) Aspartate Amino Transf (AST/SGOT) 23 U/L (15-37) Alanine Aminotransferase (ALT/SGPT) 32 U/L (12-78) Alkaline Phosphatase 74 U/L (45-117) Total Creatine Kinase 164 U/L (26-192) Creatine Kinase MB 1.7 ng/ml (0.5-3.6) Creatine Kinase MB Ratio 1.0 (0-3.0) Troponin I < 0.015 ng/ml (0-0.045) Total Protein 6.0 gm/dl (6.4-8.2) Albumin 2.7 gm/dl (3.4-5.0) Globulin 3.3 gm/dl (2.5-4.0) Albumin/Globulin Ratio 0.8 (0.9-2) Beta-Hydroxybutyric Acid 0.87 mg/dL (0.2-2.81) Laboratory studies as stated above per my review. Medications Administered Medications (Trade) Dose Ordered Sig/Artemio Route Start Time Stop Time Status Last Admin Dose Admin Sodium Chloride 1,000 ml @ 100 mls/hr Q10H ONCE IV 10/21/17 23:39 10/22/17 09:38 10/21/17 23:48 100 MLS/HR ECG Indication: chest pain Rate (beats per minute): 83 Rhythm: normal sinus Findings: RBBB, no acute ischemic change, no ectopy Comparison ECG Date: 08/28/2017 Change: Patient's electrocardiogram was interpreted by me. Compared to previous, rate has decreased, otherwise there is no change. ED Course 2142: Past medical records reviewed. The patient was evaluated in room B11, and a complete history and physical examination were performed. 0007: Upon reevaluation, the patient is stable. I discussed the results and treatment plan with the patient. She verbalized agreement of the treatment plan. Discussed the patient's case with Kandy Lane. The patient will be evaluated for further management. Medical Decision Differential diagnoses include: acute coronary syndrome, CHF, arrhythmia, musculoskeletal, and electrolyte/metabolic abnormalities. This patient comes in as described above. She complains of chest pain she's also felt weak lately. She's been admitted for CHF last time she was here couple months ago. She has no respiratory distress and the pain is reproducible. IV access established, EKG, chest x-ray was obtained. EKG shows a right bundle branch block with a normal sinus rhythm without ischemic changes. Troponin is not elevated. Chest x-ray shows cardiomegaly but no overt CHF clinically. I do not feel she is in CHF. She's had no peripheral edema as well. Her electrode is came back with a significantly low sodium of 121 as well as a low potassium in light of this I did give her gentle hydration with IV normal saline 100 an hour. Given her history of CHF, I wanted to go slowly on this. She appears stable and is otherwise asymptomatic. I do think she needs to be observed/admitted for monitoring of her sodium and further treatment and evaluation. I have consulted Dr. Humphrey who will see her in the ER for these measures Blood Pressure Screening Patient's blood pressure: Elevated blood pressure Referred to hospitalist. Consults Time Called: 2 Consulting Physician: Kandy Lane Returned Call: 6 Discussed the patient's case. The patient will be evaluated for further management. Impression Primary Impression: Chest pain Additional Impressions: Hyponatremia Weakness Scribe Attestation The scribe's documentation has been prepared under my direction and personally reviewed by me in its entirety. I confirm that the note above accurately reflects all work, treatment, procedures, and medical decision making performed by me. Departure Information Dispostion Being Evaluated By Hospitalist Referrals Manoj Goins D.O. (PCP) Patient Instructions [facility] Problem Qualifiers
[2017-10-21 22:34] LABS: HEMATOCRIT 32.9 % (37-47); HEMOGLOBIN 11.3 g/dL (12.0-16.0); MEAN CORPUSCULAR HEMOGLOBIN 30.2 pg (25-34); MEAN CORPUSCULAR HGB CONC 34.3 g/dl (32-36); MEAN PLATELET VOLUME 9.5 fL (7.4-10.4); PLATELET COUNT 249 K/uL (130-400); RED CELL DISTRIBUTION WIDTH CV 13.7 % (11.5-14.5); RED CELL DISTRIBUTION WIDTH SD 43.9 fL (36.4-46.3); WHITE BLOOD COUNT 8.63 K/uL (4.8-10.8)
[2017-10-21 22:42] LABS: INR 2.4 (0.9-1.1); PTT PATIENT 39.7 SECONDS (21.0-31.0)
[2017-10-21 22:52] LABS: ALBUMIN 2.7 gm/dl (3.4-5.0); ALT/SGPT 32 U/L (12-78); BLOOD UREA NITROGEN 21 mg/dl (7-18); CALCIUM 8.6 mg/dl (8.5-10.1); CARBON DIOXIDE 38 mmol/L (21-32); CREATININE 1.08 mg/dl (0.60-1.20); GLUCOSE 330 mg/dl (70-99); POTASSIUM 2.9 mmol/L (3.5-5.1); SODIUM 121 mmol/L (136-145)
[2017-10-21 22:54] LABS: AST/SGOT 23 U/L (15-37)
[2017-10-21 23:02] LABS: ALKALINE PHOSPHATASE 74 U/L (45-117); CKMB 1.7 ng/ml (0.5-3.6)
[2017-10-21] MEDS ORDERED: SODIUM CHLORIDE 0.9% 1000ML 1,000 ML IV ONE (23:39)
[2017-10-22] VITALS (8 sets, daily range): BP systolic 102–153; BP diastolic 52–81; PULSE 56–86; TEMP 36.2–36.9; O2SAT 95–99; Ht 162.6 cm; Wt 91.8 kg
[2017-10-22] MEDS ORDERED: NITROGLYCERIN 0.4 MG SL PER TAB CHARGE SL PRN (01:00)
[2017-10-22] MEDS ORDERED: ACETAMINOPHEN 325 MG TAB PO PRN (01:00)
[2017-10-22] MEDS ORDERED: GLUCOSE 40% GEL 15 GM TUBE PO PRN (01:00)
[2017-10-22] MEDS ORDERED: POTASSIUM CHLORIDE INJ 40 MEQ in SODIUM CHLORIDE 0.9% 500ML 500 ML IV SCH (01:00)
[2017-10-22] MEDS ORDERED: GLUCAGON FOR INJ 1 MG VIAL SQ PRN (01:00)
[2017-10-22] MEDS ORDERED: POLYETHYLENE (MIRALAX) 17 GM PACK PO PRN (01:00)
[2017-10-22] MEDS ORDERED: ONDANSETRON INJ 2 MG/ML 2 ML VIAL IV PRN (01:00)
[2017-10-22] MEDS ORDERED: MoRPHine SULFATE 2 MG/ML CARP IV PRN (01:00)
[2017-10-22] MEDS ORDERED: INSULIN GLARGINE SOLOSTAR 100 UNITS/ML 3 ML PEN SC SCH (01:00)
[2017-10-22] MEDS ORDERED: DEXTROSE 50% 50 ML SYR IV PRN (01:00)
[2017-10-22] MEDS ORDERED: GLUCOSE 10 TABS/TUBE PO PRN (01:00)
[2017-10-22] MEDS ORDERED: RBX750 PO (01:13)
[2017-10-22] MEDS ORDERED: WARF-284 PO (01:13)
[2017-10-22] MEDS ORDERED: RXC5 PO (01:13)
[2017-10-22] MEDS ORDERED: VTMD1000 PO (01:13)
[2017-10-22] MEDS ORDERED: TRAZ-122 PO (01:13)
[2017-10-22] MEDS ORDERED: ZRX25 PO (01:13)
[2017-10-22] MEDS ORDERED: IV FLUIDS COMPLETED PRN ×2 (01:15→01:45)
[2017-10-22 03:15] LABS: POTASSIUM 2.9 mmol/L (3.5-5.1)
[2017-10-22] MEDS ORDERED: POTASSIUM CHLORIDE 20 MEQ TABCR PO STA (03:24)
[2017-10-22] MEDS ORDERED: INSULIN ASPART 100 UNITS/ML 3 ML PEN SC ONE (03:29)
[2017-10-22] MEDS: INSULIN ASPART 100 UNITS/ML 3 ML PEN SC SCH ×5 (03:35→20:33)
[2017-10-22] MEDS ORDERED: LORAZEPAM 0.5 MG TAB PO PRN (03:45)
[2017-10-22] MEDS ORDERED: OXYCODONE HCL IR 5 MG TAB (IMMEDIATE RELEASE) PO PRN (03:45)
--- NOTE | 2017-10-22 04:21 | History and Physical ---
History & Physical Date & Time of Service: Oct 22, 2017 at 03:39 Chief Complaint: Chest Pain,Hyponatremia Primary Care Physician: Manoj Goins D.O. History of Present Illness Source: patient, clinic records, hospital records 62 yo diabetic female smoker with no known h/o CAD presents with reports of chest pain for 3 hours after waking up from a nap. She states that she ate food around 430 and went to lie down for a nap an hour later. Shortly after this, she woke up with a sharp substernal pain in her chest. She reports eating pizza and doesn't think this was related to heartburn. She reports associated symptoms of diaphoresis, lightheadedness and nausea and some minutes later after EMS arrived, she became somewhat short of breath. Her chest pain was noted to be reproducible on palpation by prior providers. She is having no pain at this time and I am unable to reproduce her pain with palpation. She is having no respiratory distress. She has a h/o chronic CHF but denies any recent SOB, swelling or rapid weight gain. She reports being compliant with her diuretics and other medications, which have not changed in dose since her last admission 4 months ago. Of note, outpatient case management note reveals a weight gain of 6 pounds since 10/13. She reports to me that she feels dehydrated and that her mouth is very dry from her medications. She didn't mention exactly how much water she is drinking but states that she is definitely drinking enough. She states that she has morning headaches and was recently diagnosed with DARIUS. ROS is otherwise negative. When EMS arrived, she was given ASA 324mg and two doses of nitro which resolved her chest pain completely and it has not returned. Past Medical/Surgical History Medical Problems: (1) Asthma Status: Chronic (2) Atrial fibrillation Status: Chronic (3) Bipolar disorder Status: Chronic (4) C. difficile colitis Status: Resolved (5) Chronic abdominal pain Status: Chronic (6) Chronic cor pulmonale Status: Chronic (7) Chronic pain Status: Chronic (8) Chronic respiratory failure Status: Chronic (9) COPD, severe Status: Chronic (10) Depression Status: Chronic (11) DM type 2 (diabetes mellitus, type 2) Status: Chronic (12) DVT (deep venous thrombosis) Status: Resolved (13) Gastroparesis Status: Chronic (14) GERD (gastroesophageal reflux disease) Status: Chronic (15) HTN (hypertension) Status: Chronic (16) Hypothyroidism Status: Chronic (17) [place] toxicity Status: Resolved (18) DARIUS on CPAP Status: Chronic (19) Osteoarthritis Status: Chronic (20) PAF (paroxysmal atrial fibrillation) Status: Chronic Surgical Problems: (1) H/O: hysterectomy Status: Resolved (2) Hx of appendectomy Status: Resolved (3) Hx of cholecystectomy Status: Resolved (4) Hx of lumpectomy Status: Resolved (5) 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 Status: Resolved (6) Hx of tubal ligation Status: Resolved (7) Hx of umbilical hernia repair Status: Resolved Family History Diabetes mellitus MOTHER FH: Crohn's disease SISTER Hypertension MOTHER Social History Smoking Status: Current Every Day Smoker Smokeless Tobacco Use: No Alcohol Use: none Drug Use: none Marital Status: Housing status: lives with significant other Occupational Status: disabled Immunizations History of Influenza Vaccine: Yes Influenza Vaccine Date: May 30, 2015 History of Tetanus Vaccine?: Yes Tetanus Immunization Date: Apr 22, 2006 History of Pneumococcal: Yes Pneumococcal Date: Mar 24, 2015 History of Hepatitis B Vaccine: Yes Hepatitis Immunization Date: Feb 28, 2014 Multi-Drug Resistant Organisms History of MDRO: No Allergies Coded Allergies: BEE STING (Verified Allergy, Severe, SWELLING, 09/03/17) Lisinopril (Verified Allergy, Intermediate, FACE SWELLING, 09/03/17) Potato (Verified Allergy, Intermediate, BBQ chips - facial swelling, 09/03) Metronidazole (Verified Allergy, Mild, FACE SWELLING, 09/03/17) [place] (Verified Allergy, Mild, HIVES, 09/03/17) Alprazolam (Verified Allergy, Unknown, RED FACE, FACE SWELLING, 09/03/17) Lactose (Verified Adverse Reaction, Intermediate, VOMTING DIARRHEA ABDOMINAL PAIN, 09/03/17) Prednisone (Verified Adverse Reaction, Mild, unknown, 09/03/17) Colesevelam (Verified Adverse Reaction, Unknown, unknown, 09/03/17) Chassell (Verified Adverse Reaction, Unknown, jitters, 09/03/17) Home Medications Scheduled Amitriptyline HCl (Amitriptyline HCl), 50 MG PO HS Amlodipine Besylate (Amlodipine Besylate), 10 MG PO QAM Atorvastatin (Lipitor), 40 MG PO HS Calcitriol (Calcitriol), 0.5 MCG PO 3XWK Cetirizine (Zyrtec), 10 MG PO QAM Cholecalciferol (Vitamin D3), 1,000 UNITS PO DAILY Docusate Sodium (Docusate Sodium), 1 CAP PO AFTERNOON Fentanyl (Duragesic), 50 MCG TOP [id number] Fluticasone Prop/Salmeterol (Advair Diskus 250/50 60 Dose), 1 PUFF INH BID Furosemide (Lasix), 20 MG PO BID Gabapentin (Gabapentin), 800 MG PO TID Home O2 Therapy (Oxygen), 3 LITERS NA CONTINOUS Insulin Glargine (Lantus Solostar), 16 UNITS SC BID Levothyroxine Sodium (Synthroid), 50 MCG PO QAM Methocarbamol (Methocarbamol), 750 MG PO TID Metoclopramide Hcl (Reglan), 5 MG PO TIDM Metolazone (Metolazone), 2.5 MG PO UD Metoprolol Tartrate (Lopressor) (Lopressor), 100 MG PO BID Multiple Vitamin (Multivitamin), 1 TAB PO QAM Olanzapine (Olanzapine), 2.5 MG PO HS Pantoprazole (Protonix), 40 MG PO QAM Potassium Chloride (Micro-K Ext Rel), 10 MEQ PO QAM Spironolactone (Aldactone), 0.5 TAB PO QAM Tiotropium [place] (Spiriva Handihaler), 1 CAP INH DAILY Trazodone Hcl (Desyrel), 200 TAB PO HS Venlafaxine Hcl (Effexor Extended Rel), 225 MG PO QAM Warfarin Sod (Jantoven), 5 MG PO 2XWK Warfarin Sodium (Warfarin Sodium), 7.5 MG PO UD Scheduled PRN Epinephrine (Epipen), 0.3 MG IM UD PRN for ALLERGIC REACTION Ipratropium [place] (Ipratropium [place]), 1 VIAL NEB Q6H PRN for Shortness of Breath Levalbuterol Hcl (Levalbuterol Hcl), 1.25 MG NEB Q6H PRN for SOB/Wheezing Lorazepam (Lorazepam), 0.5 MG PO UD PRN for Anxiety/Agitation Oxycodone HCl (Oxycodone HCl), 5 MG PO QID PRN for Pain Review of Systems At least ten systems were reviewed and negative except as indicated in HPI. Physical Exam Vital Signs Date Time Temp Pulse Resp B/P (MAP) Pulse Ox O2 Delivery O2 Flow Rate FiO2 10/22/17 01:20 36.5 72 16 136/81 98 Nasal Cannula 3.0 10/22/17 01:09 63 20 129/53 98 Room Air 3.0 10/22/17 01:05 67 10/21/17 23:49 36.8 80 20 152/59 98 Room Air 3.0 10/21/17 22:25 70 20 124/46 98 Room Air 10/21/17 21:21 79 10/21/17 21:16 95 Nasal Cannula 3.0 10/21/17 21:15 95 Nasal Cannula 3.0 10/21/17 20:53 95 Nasal Cannula 3.0 10/21/17 20:53 36.7 98 20 110/55 95 Nasal Cannula 3.0 10/21/17 20:52 3 Nasal Cannula General Appearance: WD/WN, no apparent distress Head: normocephalic, atraumatic Eyes: normal inspection, PERRL, sclerae normal ENT: hearing grossly normal, pharynx normal, + pertinent finding (mucous membranes are moist) Neck: supple, no adenopathy, no JVD, trachea midline Respiratory/Chest: chest non-tender, lungs clear, normal breath sounds, no respiratory distress, no accessory muscle use Cardiovascular: regular rate, rhythm, no edema, no gallop, no JVD, no murmur, normal peripheral pulses Abdomen/GI: normal bowel sounds, non tender, soft, no organomegaly Back: normal inspection Extremities/Musculoskelatal: normal inspection, normal range of motion Neurologic/Psych: rug sizer II-XII nml as tested, no motor/sensory deficits, alert, normal mood/affect, oriented x 3 Skin: warm/dry Diagnostics Laboratory Results Test 10/21/17 22:18 10/22/17 02:22 10/22/17 02:30 10/22/17 03:34 RDW Standard Deviation 43.9 fL (36.4-46.3) RDW Coefficient of Variation 13.7 % (11.5-14.5) Mean Platelet Volume 9.5 fL (7.4-10.4) Activated Partial Thromboplast Time 39.7 SECONDS (21.0-31.0) Partial Thromboplastin Ratio 1.5 Magnesium Level 1.9 mg/dl (1.8-2.4) Total Bilirubin 0.2 mg/dl (0.2-1) Aspartate Amino Transf (AST/SGOT) 23 U/L (15-37) Alanine Aminotransferase (ALT/SGPT) 32 U/L (12-78) Alkaline Phosphatase 74 U/L (45-117) Total Creatine Kinase 164 U/L (26-192) Creatine Kinase MB 1.7 ng/ml (0.5-3.6) Creatine Kinase MB Ratio 1.0 (0-3.0) Total Protein 6.0 gm/dl (6.4-8.2) Albumin 2.7 gm/dl (3.4-5.0) Globulin 3.3 gm/dl (2.5-4.0) Albumin/Globulin Ratio 0.8 (0.9-2) Beta-Hydroxybutyric Acid 0.87 mg/dL (0.2-2.81) Est Creatinine Clear Calc Drug Dose 65.2 ml/min Urine Color YELLOW Urine Appearance CLEAR (CLEAR) Urine pH 6.0 (4.5-7.5) Urine Specific [place] 1.006 (1.000-1.030) Urine Protein NEG (NEG) Urine Glucose (UA) 3+ (NEG) Urine Ketones NEG (NEG) Urine Occult Blood NEG (NEG) Urine Nitrite NEG (NEG) Urine Bilirubin NEG (NEG) Urine Urobilinogen NEG (NEG) Urine Leukocyte Esterase NEG (NEG) Urine Osmolality 148 mOms/kg (500-800) Bedside Glucose 202 mg/dl (70-90) Test 10/22/17 03:55 Test 10/21/17 22:18 10/22/17 02:22 10/22/17 02:30 10/22/17 03:34 RDW Standard Deviation 43.9 fL (36.4-46.3) RDW Coefficient of Variation 13.7 % (11.5-14.5) Mean Platelet Volume 9.5 fL (7.4-10.4) Activated Partial Thromboplast Time 39.7 SECONDS (21.0-31.0) Partial Thromboplastin Ratio 1.5 Magnesium Level 1.9 mg/dl (1.8-2.4) Total Bilirubin 0.2 mg/dl (0.2-1) Aspartate Amino Transf (AST/SGOT) 23 U/L (15-37) Alanine Aminotransferase (ALT/SGPT) 32 U/L (12-78) Alkaline Phosphatase 74 U/L (45-117) Total Creatine Kinase 164 U/L (26-192) Creatine Kinase MB 1.7 ng/ml (0.5-3.6) Creatine Kinase MB Ratio 1.0 (0-3.0) Total Protein 6.0 gm/dl (6.4-8.2) Albumin 2.7 gm/dl (3.4-5.0) Globulin 3.3 gm/dl (2.5-4.0) Albumin/Globulin Ratio 0.8 (0.9-2) Beta-Hydroxybutyric Acid 0.87 mg/dL (0.2-2.81) Est Creatinine Clear Calc Drug Dose 65.2 ml/min Urine Color YELLOW Urine Appearance CLEAR (CLEAR) Urine pH 6.0 (4.5-7.5) Urine Specific [place] 1.006 (1.000-1.030) Urine Protein NEG (NEG) Urine Glucose (UA) 3+ (NEG) Urine Ketones NEG (NEG) Urine Occult Blood NEG (NEG) Urine Nitrite NEG (NEG) Urine Bilirubin NEG (NEG) Urine Urobilinogen NEG (NEG) Urine Leukocyte Esterase NEG (NEG) Urine Osmolality 148 mOms/kg (500-800) Bedside Glucose 202 mg/dl (70-90) Test 10/22/17 03:55 Results Past 24 Hours Test 10/21/17 22:18 10/22/17 01:44 10/22/17 02:22 10/22/17 02:30 Range/Units White Blood Count 8.63 4.8-10.8 K/uL Red Blood Count 3.74 4.2-5.4 M/uL Hemoglobin 11.3 12.0-16.0 g/dL Hematocrit 32.9 37-47 % Mean Corpuscular Volume 88.0 80-100 fL Mean Corpuscular Hemoglobin 30.2 25-34 pg Mean Corpuscular Hemoglobin Concent 34.3 32-36 g/dl RDW Standard Deviation 43.9 36.4-46.3 fL RDW Coefficient of Variation 13.7 11.5-14.5 % Platelet Count 249 130-400 K/uL Mean Platelet Volume 9.5 7.4-10.4 fL Prothrombin Time 25.0 9.0-12.0 SECONDS Prothromb Time International Ratio 2.4 0.9-1.1 Activated Partial Thromboplast Time 39.7 21.0-31.0 SECONDS Partial Thromboplastin Ratio 1.5 Sodium Level 121 125 136-145 mmol/L Potassium Level 2.9 2.9 3.5-5.1 mmol/L Chloride Level 78 81 98-107 mmol/L Carbon Dioxide Level 38 41 21-32 mmol/L Anion Gap 6.0 3.0 3-11 mmol/L Blood Urea Nitrogen 21 20 7-18 mg/dl Creatinine 1.08 1.00 0.60-1.20 mg/dl Est Creatinine Clear Calc Drug Dose 61.8 65.2 ml/min Estimated GFR () 64.2 70.4 Estimated GFR (Non- 55.4 60.8 BUN/Creatinine Ratio 19.4 20.3 10-20 Random Glucose 330 225 70-99 mg/dl Calcium Level 8.6 9.0 8.5-10.1 mg/dl Magnesium Level 1.9 1.8-2.4 mg/dl Total Bilirubin 0.2 0.2-1 mg/dl Aspartate Amino Transf (AST/SGOT) 23 15-37 U/L Alanine Aminotransferase (ALT/SGPT) 32 12-78 U/L Alkaline Phosphatase 74 45-117 U/L Total Creatine Kinase 164 26-192 U/L Creatine Kinase MB 1.7 0.5-3.6 ng/ml Creatine Kinase MB Ratio 1.0 0-3.0 Troponin I < 0.015 0-0.045 ng/ml Total Protein 6.0 6.4-8.2 gm/dl Albumin 2.7 3.4-5.0 gm/dl Globulin 3.3 2.5-4.0 gm/dl Albumin/Globulin Ratio 0.8 0.9-2 Beta-Hydroxybutyric Acid 0.87 0.2-2.81 mg/dL Urine Color YELLOW Urine Appearance CLEAR CLEAR Urine pH 6.0 4.5-7.5 Urine Specific [place] 1.006 1.000-1.030 Urine Protein NEG NEG Urine Glucose (UA) 3+ NEG Urine Ketones NEG NEG Urine Occult Blood NEG NEG Urine Nitrite NEG NEG Urine Bilirubin NEG NEG Urine Urobilinogen NEG NEG Urine Leukocyte Esterase NEG NEG Urine Osmolality 148 500-800 mOms/kg Diagnostic Radiology CHEST ONE VIEW PORTABLE HISTORY: 62 years-old Female Chest pain acute atypical chest pain COMPARISON: Portable chest radiograph 08/17/2017 TECHNIQUE: Portable AP view of the chest FINDINGS: Cardiac silhouette is again moderately enlarged. Prosthetic cardiac valve redemonstrated. Atherosclerosis of the aorta. No pneumothorax or large pleural effusion. No lobar airspace consolidation. There are hazy bibasilar opacities suggesting atelectasis. Mild interstitial pulmonary edema is noted with pulmonary vascular congestion. Probable emphysematous changes noted. Bones of the chest appear grossly intact. Surgical clips project over the right upper chest. IMPRESSION: 1. Cardiomegaly with mild pulmonary edema. 2. Bibasilar opacities suggest atelectasis. EKG SR83, RBBB-similar to prior EKG Impression Assessment and Plan 62 yo diabetic smoker female with no known heart disease presents with chest pain relieved with nitro. 1. Chest pain-risk factors for ACS include diabetes, HTN, and active smoking. From the description of events it is possible that this pain could have been from lying down after her recent meal. However, with her risk factors, ACS must be excluded, especially in light of the resolution of pain with the nitro. Cardiology consult placed to help with risk stratification. she denies pain or dyspnea in the last 6 months. She currently has a nonischemic EKG and negative cardiac markers. Trend serial enzymes overnight. EKG in am. 2. Hyponatremia-with low urine osmolality consider psychogenic polydipsia in the setting of dry mouth and "feeling dehydrated" all the time. May also be secondary to overdiuresis in the setting of Lasix use and hypokalemia. She does have hyperglycemia, however, UOsm should be slightly higher if this was related to osmotic diuresis. IVF were given in the ER with an improvement in Na from 121 to 125. Will monitor closely for continued rise. 3. Hypokalemia-poss 2/2 diuretic use. Replace IV/PO 4. DMII-uncontrolled, coverage around 0330 give. Pharmacy did not dispense evening Lantus so this time was adjusted to 0800. Cont ISS/Lantus with carb coverage. 5. Smoker-nicotine patch 6. Atrial fibrillation-rate controlled with BB and cont coumadin 7. Chronic pain-cont Fentanyl and prn Oxycodone 8. chronic hypoxic respiratory failure 2/2/ COPD-stable, cont home inhalers. 9. Chronic diastolic CHF-compensated. Cont medical management including spironolatone, however, will hold Lasix and metolazone in setting of hyponatremia. 10. DARIUS-refused CPAP. Critical bicarb was noted on labwork. DVT proph-coumadin Full Code Dispo-telemetry Ashleigh Humphrey DO [facility] Level of Care Telemetry Advanced Directives Existing Living Will: No Existing Power of Sprigger: No Resuscitation Status FULL RESUSCITATION VTE Prophylaxis VTE Risk Assessment Done? Y/N: Yes Risk Level: Moderate Given or contraindicated: Warfarin (Coumadin)
[2017-10-22 04:42] LABS: INR 2.5 (0.9-1.1)
[2017-10-22 05:01] LABS: BLOOD UREA NITROGEN 19 mg/dl (7-18); CARBON DIOXIDE 42 mmol/L (21-32); CHOLESTEROL 121 mg/dl (0-200); CREATININE 0.91 mg/dl (0.60-1.20); GLUCOSE 170 mg/dl (70-99); LDL CHOLESTEROL CALCULATED 23 mg/dl; SODIUM 127 mmol/L (136-145)
[2017-10-22 06:13] LABS: HEMATOCRIT 33.1 % (37-47); HEMOGLOBIN 11.5 g/dL (12.0-16.0); MEAN CORPUSCULAR HEMOGLOBIN 30.6 pg (25-34); MEAN CORPUSCULAR HGB CONC 34.7 g/dl (32-36); MEAN PLATELET VOLUME 9.9 fL (7.4-10.4); PLATELET COUNT 278 K/uL (130-400); RED CELL DISTRIBUTION WIDTH CV 13.8 % (11.5-14.5); RED CELL DISTRIBUTION WIDTH SD 44.3 fL (36.4-46.3); WHITE BLOOD COUNT 7.23 K/uL (4.8-10.8)
[2017-10-22] MEDS: LEVOTHYROXINE 50 MCG TAB PO SCH (06:57)
[2017-10-22 07:14] LABS: HEMOGLOBIN A1C 8.8 % (4.5-5.6)
[2017-10-22 08:05] LABS: CALCIUM 9.4 mg/dl (8.5-10.1); CREATININE 0.85 mg/dl (0.60-1.20); POTASSIUM 3.5 mmol/L (3.5-5.1)
[2017-10-22] MEDS: POTASSIUM CHLORIDE 20 MEQ TABCR PO SCH ×2 (08:08→13:19)
[2017-10-22] MEDS: CHECK FENTANYL PATCH PLACEMENT SCH ×3 (08:10→23:49)
[2017-10-22] MEDS: INSULIN GLARGINE SOLOSTAR 100 UNITS/ML 3 ML PEN SC SCH ×3 (08:12→21:20)
[2017-10-22] MEDS: FLUTICASONE/SALMETEROL 250/50 (ADVAIR) 14 PUFF/1 INHALER INH SCH ×2 (08:17→21:12)
[2017-10-22] MEDS: TIOTROPIUM BROMIDE 5 PUFF/90 MCG INH INH SCH (08:17)
[2017-10-22] MEDS: PANTOprazole SOD 40 MG TAB PO SCH (08:20)
[2017-10-22] MEDS: NICOTINE 14 MG/24 HR TDSY TD SCH (08:20)
[2017-10-22] MEDS: METHOCARBAMOL 750 MG TAB PO SCH ×3 (08:20→21:37)
[2017-10-22] MEDS: CHOLECALCIFEROL 1000 INTER.UNIT TAB PO SCH (08:21)
[2017-10-22] MEDS: CETIRIZINE HCL 10 MG TAB PO SCH (08:21)
[2017-10-22] MEDS: MULTIVITAMIN TAB PO SCH (08:21)
[2017-10-22] MEDS: GABAPENTIN 800 MG TAB PO SCH ×3 (08:22→21:15)
[2017-10-22] MEDS: SPIRONOLACTONE 25 MG TAB PO SCH (08:22)
[2017-10-22] MEDS: AMLODIPINE BESYLATE 5 MG TAB PO SCH (08:23)
[2017-10-22] MEDS: METOPROLOL TARTRATE 100 MG TAB PO SCH ×2 (08:23→21:13)
[2017-10-22] MEDS: DOCUSATE SODIUM 100 MG CAP PO SCH (08:23)
[2017-10-22] MEDS: VENLAFAXINE HCL XR 75 MG CAPXR PO SCH (08:24)
[2017-10-22] MEDS: ASPIRIN 81 MG ECTAB PO SCH (08:24)
[2017-10-22] MEDS ORDERED: FENTANYL PATCH REMOVE & WASTE SCH (08:59)
[2017-10-22] MEDS ORDERED: CALCITRIOL 0.25 MCG CAP PO SCH (09:00)
[2017-10-22] MEDS ORDERED: FENTANYL 50 MCG/HR TDSY TD SCH (09:00)
--- NOTE | 2017-10-22 14:33 | Cardiology Consultation ---
Cardiology Consultation Date of Consultation: Oct 22, 2017 History of Present Illness Juliet Minaya is a 62 year old female seen in cardiology consultation per the request of Dr Humphrey for the evaluation of chest discomfort. The patient states that she was in her normal state of health yesterday. She was laying on the couch watching television summer between 4:30 and 5 PM she had abrupt onset of midline chest discomfort. She called EMS after persisted for at least an hour. She describes having a dose of sublingual nitroglycerin administered in the ambulance with resolution of her symptoms. Her initial vital signs she reached the emergency room at 20:53 last night included a blood pressure of 110/55 and heart rate of 98 bpm, pulse oximetry 95%. EKG performed on presentation 10/21/17 revealed sinus rhythm at 83 bpm with first- degree AV block and right bundle branch block with resultant repolarization abnormalities. The corrected QT interval was prolonged, but this was in the setting of the right bundle branch block. The patient's troponin has since been negative 3 measurements. She describes to me that she feels well with no recurrence of her chest discomfort. She is in good spirits. The patient is well-known to our cardiology service. She has an extensive past cardiac history as delineated below. I had personally seen her during hospital stay in early April 2017 when she presented with atrial flutter and underwent right-sided tricuspid isthmus flutter ablation during that admission with successful return of sinus rhythm. Anticoagulation was continued. About a week later she was readmitted for volume overload and did well with diuretic therapy. She most recently been seen in cardiology clinic by Ninoska Zamora of our practice on 05/20/17 at which time she was doing well. History Past Medical History: 1. 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 2. June 13, [address] [facility] demonstrated a left dominant coronary system with small caliber distal vessels consistent with diabetic history, without obstructive disease. 3. Symptomatic atrial flutter observed in February 2013, status post 03/16/2013 cardioversion, s/p atrial flutter ablation April 2017. 4. 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 5. Poor candidate for antiarrhythmic therapy due to QT prolongation from her psych medications. 6. Severe chronic obstructive lung disease, advanced emphysema, chronic hypoxemia with supplemental oxygen therapy PRN during the day and QHS, cor pulmonale. 7. DARIUS 8. Anemia 9. Hypertension 10. Hyperlipidemia 11. Type II diabetes mellitus with gastroparesis 12. Stage III chronic kidney disease 13. Left adrenal mass 14. Obesity 15. Bipolar disorder 16. GERD 17. Gastroparesis 18. Hypothyroidism 19. Osteoarthritis. 20.Cervical disc disease Past Surgical History: as above Social History: ongoing smoker, 1/2 PPD, denies alcohol use Family History: mother with HTN and DM Review Of Systems General: The patient denies weight change, night sweats, fever, chills. Head: The patient denies headache and prior head trauma. Cardiovascular: The patient denies chest pain or chest discomfort, dyspnea on exertion, palpitations, PND, orthopnea, edema, spontaneous shortness of breath, syncope and near syncope. Pulmonary: The patient denies cough, wheeze, pleurisy, hemoptysis, sputum, and excessive snoring. Gastrointestinal: The patient denies nausea, vomiting, diarrhea, constipation, bloating, hematemesis, hematochezia, and abdominal pain. Skin: The patient denies diaphoresis and rash. Musculoskeletal: The patient denies joint pain, joint swelling, myalgia, back pain, neck pain and prior injuries. Neurological: The patient denies prior stroke and seizures Allergies Coded Allergies: BEE STING (Verified Allergy, Severe, SWELLING, 09/03/17) Lisinopril (Verified Allergy, Intermediate, FACE SWELLING, 09/03/17) Potato (Verified Allergy, Intermediate, BBQ chips - facial swelling, 09/03) Metronidazole (Verified Allergy, Mild, FACE SWELLING, 09/03/17) [place] (Verified Allergy, Mild, HIVES, 09/03/17) Alprazolam (Verified Allergy, Unknown, RED FACE, FACE SWELLING, 09/03/17) Lactose (Verified Adverse Reaction, Intermediate, VOMTING DIARRHEA ABDOMINAL PAIN, 09/03/17) Prednisone (Verified Adverse Reaction, Mild, unknown, 09/03/17) Colesevelam (Verified Adverse Reaction, Unknown, unknown, 09/03/17) [place] (Verified Adverse Reaction, Unknown, jitters, 09/03/17) Medications Reported Home Medications Medications Dose Route/Sig Max Daily Dose Days Date Category Dose Instructions Vitamin D3 (Cholecalciferol) 1,000 Inter.unit Tab 1,000 Units PO DAILY 10/22/17 Reported Methocarbamol 750 Mg Tab 750 Mg PO TID 10/22/17 Reported Metolazone 2.5 Mg Tab 2.5 Mg PO UD 10/22/17 Reported Takes 30 minutes prior to Lasix on MON and FRI Oxycodone HCl 5 Mg Tab 5 Mg PO QID PRN 10/22/17 Reported Warfarin Sodium 7.5 Mg Tab 7.5 Mg PO UD 10/22/17 Reported Takes on MON, TU, WED, FRI, SAT Desyrel (Trazodone Hcl) 100 Mg Tab 200 Tab PO HS 30 10/22/17 Reported Jantoven (Warfarin Sodium) 5 Mg Tab 5 Mg PO 2XWK 08/26/17 Reported JOHANNA CUEVAS Aldactone (Spironolactone) 25 Mg Tab 0.5 Tab PO QAM 08/26/17 Reported Micro-K Ext Rel (Potassium Chloride) 10 Meq Capcr 10 Meq PO QAM 08/26/17 Reported Docusate Sodium 100 Mg Cap 1 Cap PO AFTERNOON 08/26/17 Reported Duragesic (Fentanyl) 50 Mcg Tdsy 50 Mcg TOP [id number] 08/17/17 Reported Lasix (Furosemide) 20 Mg Tab 20 Mg PO BID 07/19/17 Reported Levalbuterol Hcl 1.25 Mg/3 Ml Neb 1.25 Mg NEB Q6H PRN 05/05/17 Reported Ipratropium Loving 0.5 Mg/2.5 Ml Nebu 1 Vial NEB Q6H PRN 05/05/17 Reported Protonix (Pantoprazole Sodium) 40 Mg Tab 40 Mg PO QAM 05/05/17 Reported Lantus Solostar (Insulin Glargine) 100 Unit/Ml Inj 16 Units SC BID 05/05/17 Reported Reglan (Metoclopramide Hcl) 10 Mg Tab 5 Mg PO TIDM 04/28/17 Reported Lorazepam 0.5 Mg Tab 0.5 Mg PO UD PRN 04/28/17 Reported Lopressor (Metoprolol Tartrate) 100 Mg Tab 100 Mg PO BID 04/28/17 Reported Spiriva Handihaler (Tiotropium Loving) 30 Puff/540 Mcg Aerp 1 Cap INH DAILY 10/18/16 Reported Olanzapine 2.5 Mg Tab 2.5 Mg PO HS 09/12/16 Reported Effexor Extended Rel (Venlafaxine Hcl) 75 Mg Capcr 225 Mg PO QAM 07/17/16 Reported Gabapentin 800 Mg Tab 800 Mg PO TID 07/17/16 Reported Amitriptyline HCl 50 Mg Tab 50 Mg PO HS 07/17/16 Reported Calcitriol 0.5 Mcg Cap 0.5 Mcg PO 3XWK 03/14/16 Reported TAKE THIS MEDICATION EVERY FRIDAY,FRIDAY AND FRIDAY Advair Diskus 250/50 60 Dose (Fluticasone Prop/Salmeterol) 1 Ea Aerp 1 Puff INH BID 07/24/15 Reported Synthroid (Levothyroxine Sodium) 50 Mcg Tab 50 Mcg PO QAM 08/15/14 Reported Amlodipine Besylate 10 Mg Tab 10 Mg PO QAM 05/25/14 Reported Lipitor (Atorvastatin Calcium) 40 Mg Tab 40 Mg PO HS 05/25/14 Reported Multivitamin (Multiple Vitamin) 1 Tab Tab 1 Tab PO QAM 12/24/13 Reported Epipen (Epinephrine) 0.3 Mg/0.3 Ml Inj 0.3 Mg IM UD PRN 12/24/13 Reported Zyrtec (Cetirizine HCl) 10 Mg Tab 10 Mg PO QAM 12/24/13 Reported Oxygen Gas 3 Liters NA CONTINOUS 07/05/12 Reported Physical Exam Vital Signs (Last 8hrs): Last 8 Hrs Date Time Temp Pulse Resp B/P (MAP) Pulse Ox O2 Delivery O2 Flow Rate FiO2 10/22/17 08:00 Nasal Cannula 3.0 10/22/17 07:32 36.6 86 20 132/77 (95) 99 Room Air 10/22/17 04:00 36.3 81 18 153/64 (93) 97 Nasal Cannula 3.0 10/22/17 04:00 Nasal Cannula 3.0 General Appearance: Alert and Oriented x3. NAD. Head: Normocephalic Atraumatic. Eyes: PERRLA, EOMI, conjunctiva and sclera clear Neck: Supple. No carotid bruits noted. No JVD. No HJD. Respiratory: Breath sounds clear to auscultation bilaterally. No w/r/r. Cardiovascular: Reg rate and rhythm. S1 and S2 noted. No murmurs, rubs, gallops. PMI non displace. Abdomen: Normal bowel sounds, soft nontender. no abdominal bruits. Extremities: No edema, no clubbing or cyanosis. distal pulses 2/4 bilaterally. Neuro: No focal deficits. Psychiatric: Normal affect. Data Last Resulted 10/22/17 03:55 Last Resulted 10/22/17 07:27 Past 24 Hours Test 10/21/17 22:18 10/22/17 03:55 10/22/17 09:55 Range/Units Creatine Kinase MB 1.7 0.5-3.6 ng/ml Creatine Kinase MB Ratio 1.0 0-3.0 Prothromb Time International Ratio 2.4 H 2.5 H 0.9-1.1 Prothrombin Time 25.0 H 26.1 H 9.0-12.0 SECONDS Total Creatine Kinase 164 26-192 U/L Troponin I < 0.015 < 0.015 < 0.015 0-0.045 ng/ml EKG as outlined in the history of present illness Telemetry reveals sinus rhythm. Assessment & Plan Impression: 62-year-old female 1. Episode of chest discomfort, negative cardiac enzymes, negative EKG 2. History of chronic lung disease, chart history of cor pulmonale physiology, although on her most recent echocardiogram in April 2017 normal right ventricular chamber size and systolic function were described. Otherwise on that echocardiogram normal left ventricular wall motion and ejection fraction of 65-70% was reported with mild concentric left ventricular hypertrophy. Discussion/recommendations: Other than atrial arrhythmias, the patient's most significant issues have been related to diastolic heart failure. Per review of her recent outpatient weights as well as her discharge weights as documented on 08/20/17 as compared to now she has had about 3-4 pound weight gain. The patient however on exam appears to be euvolemic with no significant lower extremity edema and she notes no symptoms to suggest volume overload. She was noted to have hyponatremia on presentation yesterday with sodium level of 121 mmol per liter. She received hydration and her sodium level is improved to 134 today. At this point, I recommend continued ongoing conservative therapy. She feels better after hydration. Her enzymes are negative. I do not think she warrants cardiac catheterization, and noninvasive assessment for ischemic heart disease is technically challenging in her case. She is not capable of exercising sufficiently to allow exercise based stress test to allow risk stratification. I feel that she is at high risk for a repeat atrial arrhythmia such as atrial flutter or fibrillation with the administration of dobutamine, and given her body habitus, I feel a nuclear perfusion stress test would be technically limited and therefore even if her perfusion appeared grossly normal, I do not think it would add much in terms of assisting her with her management. Recommend ongoing medication therapy including aspirin, atorvastatin, metoprolol , spironolactone, warfarin, and resume her home dose of furosemide as well as her outpatient plan of taking metolazone 2.5 mg 2 days per week. Recommend outpatient metabolic panel in about a one week's time to ensure that her sodium remains stable.
[2017-10-22] MEDS ORDERED: WARFARIN SOD 7.5 MG TAB PO SCH (16:00)
[2017-10-22] MEDS ORDERED: ATORVASTATIN 40 MG TAB PO SCH (21:00)
[2017-10-22] MEDS ORDERED: OLANZAPINE 2.5 MG TAB PO SCH (21:00)
[2017-10-22] MEDS ORDERED: TRAZODONE HCL 100 MG TAB PO SCH (21:00)
[2017-10-22] MEDS ORDERED: AMITRIPTYLINE HCL 50 MG TAB PO SCH (21:00)
[2017-10-23 03:59] VITALS: BP 121/71; PULSE 71; TEMP 36.4; O2SAT 94
[2017-10-23] MEDS: LEVOTHYROXINE 50 MCG TAB PO SCH (06:38)
[2017-10-23 07:21] LABS: INR 2.4 (0.9-1.1)
[2017-10-23 07:31] VITALS: BP 122/75; PULSE 75; TEMP 37; O2SAT 95
[2017-10-23 07:48] LABS: CALCIUM 9.6 mg/dl (8.5-10.1); CREATININE 0.94 mg/dl (0.60-1.20)
[2017-10-23 08:05] VITALS: BP 131/64; PULSE 76
[2017-10-23] MEDS: GABAPENTIN 800 MG TAB PO SCH ×2 (08:06→13:29)
[2017-10-23] MEDS: PANTOprazole SOD 40 MG TAB PO SCH (08:06)
[2017-10-23] MEDS: FLUTICASONE/SALMETEROL 250/50 (ADVAIR) 14 PUFF/1 INHALER INH SCH (08:06)
[2017-10-23] MEDS: CETIRIZINE HCL 10 MG TAB PO SCH (08:07)
[2017-10-23] MEDS: NICOTINE 14 MG/24 HR TDSY TD SCH (08:07)
[2017-10-23] MEDS: METOPROLOL TARTRATE 100 MG TAB PO SCH (08:07)
[2017-10-23] MEDS: CHOLECALCIFEROL 1000 INTER.UNIT TAB PO SCH (08:07)
[2017-10-23] MEDS: AMLODIPINE BESYLATE 5 MG TAB PO SCH (08:08)
[2017-10-23] MEDS: ASPIRIN 81 MG ECTAB PO SCH (08:08)
[2017-10-23] MEDS: METHOCARBAMOL 750 MG TAB PO SCH ×2 (08:08→13:29)
[2017-10-23] MEDS: DOCUSATE SODIUM 100 MG CAP PO SCH (08:08)
[2017-10-23] MEDS: MULTIVITAMIN TAB PO SCH (08:08)
[2017-10-23] MEDS: VENLAFAXINE HCL XR 75 MG CAPXR PO SCH (08:09)
[2017-10-23] MEDS: CHECK FENTANYL PATCH PLACEMENT SCH (08:12)
[2017-10-23] MEDS: INSULIN GLARGINE SOLOSTAR 100 UNITS/ML 3 ML PEN SC SCH (08:17)
[2017-10-23] MEDS: INSULIN ASPART 100 UNITS/ML 3 ML PEN SC SCH ×2 (08:17→12:38)
[2017-10-23] MEDS: SPIRONOLACTONE 25 MG TAB PO SCH (08:47)
[2017-10-23] MEDS: TIOTROPIUM BROMIDE 5 PUFF/90 MCG INH INH SCH (08:48)
[2017-10-23 11:37] VITALS: BP 124/77; PULSE 61; TEMP 36.4; O2SAT 95
--- NOTE | 2017-10-23 12:18 | Cardiology Follow-Up ---
Subjective General Date of Service: Oct 23, 2017. Chief Complaint: follow up chest pain Pt evaluation today including: conversation w/ patient, physical exam History of Present Illness The patient is a 62 year old female seen in follow up. Patient feels well. No additional chest discomfort. EKG this am reveals stable SR at 74 bpm RBBB, TW inversion noted in leads V2 and V3 yesterday has resolved, WRS more narrow. Allergies Coded Allergies: BEE STING (Verified Allergy, Severe, SWELLING, 09/03/17) Lisinopril (Verified Allergy, Intermediate, FACE SWELLING, 09/03/17) Potato (Verified Allergy, Intermediate, BBQ chips - facial swelling, 09/03) Metronidazole (Verified Allergy, Mild, FACE SWELLING, 09/03/17) [place] (Verified Allergy, Mild, HIVES, 09/03/17) Alprazolam (Verified Allergy, Unknown, RED FACE, FACE SWELLING, 09/03/17) Lactose (Verified Adverse Reaction, Intermediate, VOMTING DIARRHEA ABDOMINAL PAIN, 09/03/17) Prednisone (Verified Adverse Reaction, Mild, unknown, 09/03/17) Colesevelam (Verified Adverse Reaction, Unknown, unknown, 09/03/17) [place] (Verified Adverse Reaction, Unknown, jitters, 09/03/17) Social History Smoking Status: Current Every Day Smoker Hx Tobacco Use In Past Year?: Yes Hx Alcohol Use - Type And Amou: No Hx Substance Use - Type And Am: Yes (pain and anxiety medication) Problem List Medical Problems: (1) Acute gastroenteritis Status: Acute (2) Altered mental status Status: Acute (3) Atrial flutter with rapid ventricular response Status: Acute (4) Back pain Status: Acute (5) Bradycardia Status: Acute (6) Bronchitis Status: Acute (7) Bronchitis Status: Acute (8) CAP (community acquired pneumonia) Status: Acute (9) Cellulitis Status: Acute (10) Cervical radiculopathy Status: Acute (11) Chest pain Status: Acute (12) Chest pain Status: Acute (13) Chest pain of unknown etiology Status: Acute (14) Chest wall pain Status: Acute (15) Chest wall pain Status: Acute (16) CHF exacerbation Status: Acute (17) CHF exacerbation Status: Acute (18) Chronic right shoulder pain Status: Acute (19) Congestive heart failure Status: Acute (20) Congestive heart failure Status: Acute (21) COPD exacerbation Status: Acute (22) COPD exacerbation Status: Acute (23) COPD exacerbation Status: Acute (24) Cough Status: Acute (25) Dehydration Status: Acute (26) Depressed Status: Acute (27) Diarrhea Status: Acute (28) Diarrhea Status: Acute (29) Diarrhea Status: Acute (30) Diffuse abdominal pain Status: Acute (31) Diffuse abdominal pain Status: Acute (32) Dysuria Status: Acute (33) Elevated troponin Status: Acute (34) Erythema of face Status: Acute (35) Facial contusion Status: Acute (36) Fatigue Status: Acute (37) Fluid overload Status: Acute (38) Generalized weakness Status: Acute (39) Headache Status: Acute (40) History of COPD Status: Acute (41) Hyperglycemia Status: Acute (42) Hyponatremia Status: Acute (43) Hypoxia Status: Acute (44) Leukocytosis Status: Acute (45) Lower back pain Status: Acute (46) Pelvic cyst Status: Acute (47) PNA (pneumonia) Status: Acute (48) Precordial chest pain Status: Acute (49) Rash Status: Acute (50) Request for narcotic pain medication Status: Acute (51) Respiratory failure Status: Acute (52) Right fibular fracture Status: Acute (53) Right leg pain Status: Acute (54) Shortness of breath Status: Acute (55) Shortness of breath Status: Acute (56) SOB (shortness of breath) Status: Acute (57) Tobacco use Status: Acute (58) Urinary tract infection Status: Acute (59) UTI (urinary tract infection) Status: Acute (60) Weakness Status: Acute (61) Weakness Status: Acute (62) Wheezing Status: Acute Physical Exam Vital Signs Last Vital Signs Documentation Date Time Temp Pulse Resp B/P (MAP) Pulse Ox O2 Delivery O2 Flow Rate FiO2 10/23/17 11:37 36.4 61 18 124/77 (93) 95 Nasal Cannula 3.0 Physical Exam Constitutional: Level of Distress: NAD ENMT: normal ENT inspection Neck: supple Lungs: Auscultation: no wheezing, no rales/crackles Cardiovascular: Heart Auscultation: RRR, no murmurs, no rubs Abdomen: Inspection & Palpation: soft, no tenderness, guarding & rebound Extremities: no edema Neurologic: Gait & Station: pertinent finding (no focal deficits ) Assessment and Plan Assessment and Plan Impression: 62-year-old female 1. Episode of chest discomfort, negative cardiac enzymes,transient Twave inversions on EKG difficult to interpret in setting of RBBB which has changed morphologies in this patient with known conduction disease. 2. History of chronic lung disease, chart history of cor pulmonale physiology, although on her most recent echocardiogram in April 2017 normal right ventricular chamber size and systolic function were described. Otherwise on that echocardiogram normal left ventricular wall motion and ejection fraction of 65-70% was reported with mild concentric left ventricular hypertrophy. Plan: Continue medical RX. Recommend outpatient follow up with cardiology within 1 months. Laboratory Results Last 24 Hours Test 10/22/17 16:27 10/22/17 20:17 10/22/17 21:27 10/23/17 06:45 Bedside Glucose 115 mg/dl 81 mg/dl 160 mg/dl Prothrombin Time 24.3 SECONDS Prothromb Time International Ratio 2.4 Sodium Level 137 mmol/L Potassium Level 4.0 mmol/L Chloride Level 94 mmol/L Carbon Dioxide Level 37 mmol/L Anion Gap 6.0 mmol/L Blood Urea Nitrogen 15 mg/dl Creatinine 0.94 mg/dl Est Creatinine Clear Calc Drug Dose 69.0 ml/min Estimated GFR () 75.9 Estimated GFR (Non- 65.5 BUN/Creatinine Ratio 16.3 Random Glucose 99 mg/dl Calcium Level 9.6 mg/dl Magnesium Level 2.1 mg/dl Test 10/23/17 07:42 10/23/17 11:38 Bedside Glucose 118 mg/dl 117 mg/dl
--- NOTE | 2017-10-23 12:36 | Progress Note ---
Internal Med Progress Note Date of Service: Oct 22, 2017. Provider Documentation: SUBJECTIVE: The patient was seen and examined Admitted with Chest pain Denies any more Chest pain Much better today Ready to go home today OBJECTIVE: Vital Signs-as noted below Exam: General-No distress at rest Eyes-Normal ENT-normal Neck-supple Lungs-Clear to ausucltate bilaterally Heart-Regular Abdomen-Benign,no masses,bowel sound present Extremities-Trace edema bilaterally Neuro-AAOx3 Lab data as noted below. ASSESSMENT & PLAN: 62 yo diabetic female smoker with no known h/o CAD presents with reports of chest pain for 3 hours after waking up from a nap.Pain was relieved with Nitro Chest pain- Risk factors for ACS include diabetes, HTN, and active smoking. Serial Troponin to R/O ACS Cardiology consult placed to help with risk stratification. She currently has a nonischemic EKG and negative cardiac markers. Denies any more pain and Troponin remains unremarkable Appreciate cardiology input and recommendation Hyponatremia -likely secondary to Polydipsia Low urine osmolality suggest psychogenic polydipsia in the setting of dry mouth and "feeling dehydrated" all the time. May also be secondary to overdiuresis in the setting of Lasix use and hypokalemia. IVF were given in the ER with an improvement in Na from 121 to 125. Normalized this AM 10/22/16 Electrolytes are normalized Hypokalemia-poss 2/2 diuretic use. Replace IV/PO Normalized DMII-uncontrolled, coverage around 0330 give. Pharmacy did not dispense evening Lantus so this time was adjusted to 0800. Cont ISS/Lantus with carb coverage. Tobacco Use disorder Nicotine patch Atrial fibrillation-rate controlled with BB and cont Coumadin No acute issue Chronic pain-cont Fentanyl and prn Oxycodone Chronic hypoxic respiratory failure 2/2/ COPD-stable, cont home inhalers No acute issue Has Home Oxygen . Chronic diastolic CHF-compensated. Cont medical management including spironolactone, however, will hold Lasix and metolazone in setting of hyponatremia. DARIUS-refused CPAP. Critical bicarb was noted on labwork. DVT proph-Coumadin Full Code Discharge today Vital Signs: Date Time Temp Pulse Resp B/P (MAP) Pulse Ox O2 Delivery O2 Flow Rate FiO2 10/23/17 12:00 Nasal Cannula 3.0 10/23/17 11:37 36.4 61 18 124/77 (93) 95 Nasal Cannula 3.0 10/23/17 08:05 76 131/64 (86) 10/23/17 08:00 Nasal Cannula 3.0 10/23/17 07:31 37.0 75 18 122/75 (91) 95 Nasal Cannula 2.0 10/23/17 04:05 Nasal Cannula 3.0 10/23/17 03:59 36.4 71 18 121/71 (88) 94 2.0 10/23/17 00:05 Nasal Cannula 3.0 10/22/17 23:45 36.2 67 20 105/66 (79) 96 Nasal Cannula 2.0 10/22/17 20:30 99 Nasal Cannula 10/22/17 19:31 36.8 73 18 102/52 (69) 99 Nasal Cannula 3.0 10/22/17 16:00 Nasal Cannula 3.0 10/22/17 15:27 36.5 56 18 112/65 (81) 96 Nasal Cannula 2.0 Lab Results: Results Past 24 Hours Test 10/22/17 16:27 10/22/17 20:17 10/22/17 21:27 10/23/17 06:45 Range/Units Bedside Glucose 115 81 160 70-90 mg/dl Prothrombin Time 24.3 9.0-12.0 SECONDS Prothromb Time International Ratio 2.4 0.9-1.1 Sodium Level 137 136-145 mmol/L Potassium Level 4.0 3.5-5.1 mmol/L Chloride Level 94 98-107 mmol/L Carbon Dioxide Level 37 21-32 mmol/L Anion Gap 6.0 3-11 mmol/L Blood Urea Nitrogen 15 7-18 mg/dl Creatinine 0.94 0.60-1.20 mg/dl Est Creatinine Clear Calc Drug Dose 69.0 ml/min Estimated GFR () 75.9 Estimated GFR (Non- 65.5 BUN/Creatinine Ratio 16.3 10-20 Random Glucose 99 70-99 mg/dl Calcium Level 9.6 8.5-10.1 mg/dl Magnesium Level 2.1 1.8-2.4 mg/dl Test 10/23/17 07:42 10/23/17 11:38 Range/Units Bedside Glucose 118 117 70-90 mg/dl
[2017-10-23] MEDS ORDERED: NICO14DI5 TD (12:42)
--- NOTE | 2017-10-23 12:46 | Discharge Instructions ---
Discharge Instructions Date of Service Oct 23, 2017. Admission Reason for Admission: Chest Pain,Hyponatremia Discharge Discharge Diagnosis / Problem: Chest pain -no ACS Discharge Goals Goal(s): Prevent Disease Progression Activity Recommendations Activity Limitations: resume your previous activity . Instructions / Follow-Up Instructions / Follow-Up Dr Hoang (Dr Goins is not available) on 10/28/17 at 10:45 AM, Mr Ray on 11/21/17 at 2:15 PM and Coagulation clinic notified Current Hospital Diet Patient's current hospital diet: AHA Diet (Heart Healthy), Diabetes Type 2 Diet , Low Lactose Diet Discharge Diet Recommended Diet: AHA Diet (Heart Healthy), Low Sodium Diet (2gm Na), Diabetes Type 2 Diet Fluid Restriction: 1500 ml (6 cups) Pending Studies Studies pending at discharge: no Laboratory Results Hemoglobin A1c Test 10/22/17 03:55 Range/Units Estimated Average Glucose 206 mg/dl Hemoglobin A1c 8.8 H 4.5-5.6 % Lipid Panel Test 10/22/17 03:55 Range/Units Triglycerides Level 129 0-150 mg/dl Cholesterol Level 121 0-200 mg/dl HDL Cholesterol 72 mg/dl Cholesterol/HDL Ratio 1.7 LDL Cholesterol, Calculated 23 mg/dl Medical Emergencies . Who to Call and When: Medical Emergencies: If at any time you feel your situation is an emergency, please call 911 immediately. . Non-Emergent Contact Non-Emergency issues call your: Primary Care Provider . Past History Medical & Surgical History: (1) Chest pain (2) Hyponatremia (3) Depression (4) COPD, severe (5) DVT (deep venous thrombosis) (6) Gastroparesis (7) Hypothyroidism (8) DARIUS on CPAP (9) Atrial fibrillation (10) HTN (hypertension) (11) Chronic cor pulmonale (12) CHF (congestive heart failure) (13) Chronic abdominal pain (14) Hx of lumpectomy (15) Hx of cholecystectomy (16) Hx of umbilical hernia repair (17) Hx of appendectomy (18) H/O: hysterectomy (19) Hx of mitral valve repair . "Provider Documentation" section prepared by Dee Sierra. . VTE Core Measure Inpt VTE Proph given/why not?: Warfarin (Coumadin)
[2017-10-23 13:04] VITALS: BP 124/77; PULSE 61; TEMP 36.4; O2SAT 95
[2017-10-23] MEDS ORDERED: WARFARIN SOD 5 MG TAB PO SCH (16:00)
--- NOTE | 2017-10-23 17:34 | Discharge Summary ---
Discharge Summary Date of Service Oct 23, 2017. Discharge Summary Admission Date: Oct 22, 2017 at 00:59 Discharge Date: Oct 23, 2017 Principal Diagnosis: Chest pain -no ACS Secondary Diagnoses/Problems: Please see H&P and Hospital Progress note Consultations: Cardiology Medication Reconciliation New Medications: Nicotine (Nicoderm Cq 14MG Patch) 14 Mg/24 Hr Dis 1 PATCH TD QAM for 30 Days, #30 Continued Medications: Amitriptyline HCl (Amitriptyline HCl) 50 Mg Tab 50 MG PO HS Amlodipine Besylate (Amlodipine Besylate) 10 Mg Tab 10 MG PO QAM Atorvastatin (Lipitor) 40 Mg Tab 40 MG PO HS Calcitriol (Calcitriol) 0.5 Mcg Cap 0.5 MCG PO 3XWK TAKE THIS MEDICATION EVERY FRIDAY,FRIDAY AND FRIDAY Cetirizine (Zyrtec) 10 Mg Tab 10 MG PO QAM, TAB Cholecalciferol (Vitamin D3) 1,000 Inter.unit Tab 1000 UNITS PO DAILY Docusate Sodium (Docusate Sodium) 100 Mg Cap 1 CAP PO AFTERNOON Epinephrine (Epipen) 0.3 Mg/0.3 Ml Inj 0.3 MG IM UD PRN for ALLERGIC REACTION Fentanyl (Duragesic) 50 Mcg Tdsy 50 MCG TOP CQ72HR Fluticasone Prop/Salmeterol (Advair Diskus 250/50 60 Dose) 1 Ea Aerp 1 PUFF INH BID Furosemide (Lasix) 20 Mg Tab 20 MG PO BID, TAB Gabapentin (Gabapentin) 800 Mg Tab 800 MG PO TID Home O2 Therapy (Oxygen) Gas 3 LITERS NA CONTINOUS Insulin Glargine (Lantus Solostar) 100 Unit/Ml Inj 16 UNITS SC BID Ipratropium [place] (Ipratropium [place]) 0.5 Mg/2.5 Ml Nebu 1 VIAL NEB Q6H PRN for Shortness of Breath, ML Levalbuterol Hcl (Levalbuterol Hcl) 1.25 Mg/3 Ml Neb 1.25 MG NEB Q6H PRN for SOB/Wheezing Levothyroxine Sodium (Synthroid) 50 Mcg Tab 50 MCG PO QAM, TAB Lorazepam (Lorazepam) 0.5 Mg Tab 0.5 MG PO UD PRN for Anxiety/Agitation, TAB Methocarbamol (Methocarbamol) 750 Mg Tab 750 MG PO TID Metoclopramide Hcl (Reglan) 10 Mg Tab 5 MG PO TIDM, TAB Metolazone (Metolazone) 2.5 Mg Tab 2.5 MG PO UD, TAB Takes 30 minutes prior to Lasix on FRI and FRI Metoprolol Tartrate (Lopressor) (Lopressor) 100 Mg Tab 100 MG PO BID, TAB Multiple Vitamin (Multivitamin) 1 Tab Tab 1 TAB PO QAM, TAB Olanzapine (Olanzapine) 2.5 Mg Tab 2.5 MG PO HS Oxycodone HCl (Oxycodone HCl) 5 Mg Tab 5 MG PO QID PRN for Pain Pantoprazole (Protonix) 40 Mg Tab 40 MG PO QAM Potassium Chloride (Micro-K Ext Rel) 10 Meq Capcr 10 MEQ PO QAM Spironolactone (Aldactone) 25 Mg Tab 0.5 TAB PO QAM Tiotropium [place] (Spiriva Hand[place]er) 30 Puff/540 Mcg Aerp 1 CAP INH DAILY, INHALER Trazodone Hcl (Desyrel) 100 Mg Tab 200 TAB PO HS for 30 Days, #30 TAB 1 Refill Venlafaxine Hcl (Effexor Extended Rel) 75 Mg Capcr 225 MG PO QAM Warfarin Sod (Jantoven) 5 Mg Tab 5 MG PO 2XWK SUN, THURS Warfarin Sodium (Warfarin Sodium) 7.5 Mg Tab 7.5 MG PO UD, TAB Takes on FRI, , FRI, FRI, SAT Admission Information HPI (per Admitting provider): 62 yo diabetic female smoker with no known h/o CAD presents with reports of chest pain for 3 hours after waking up from a nap. She states that she ate food around 430 and went to lie down for a nap an hour later. Shortly after this, she woke up with a sharp substernal pain in her chest. She reports eating pizza and doesn't think this was related to heartburn. She reports associated symptoms of diaphoresis, lightheadedness and nausea and some minutes later after EMS arrived, she became somewhat short of breath. Her chest pain was noted to be reproducible on palpation by prior providers. She is having no pain at this time and I am unable to reproduce her pain with palpation. She is having no respiratory distress. She has a h/o chronic CHF but denies any recent SOB, swelling or rapid weight gain. She reports being compliant with her diuretics and other medications, which have not changed in dose since her last admission 4 months ago. Of note, outpatient case management note reveals a weight gain of 6 pounds since 10/13. She reports to me that she feels dehydrated and that her mouth is very dry from her medications. She didn't mention exactly how much water she is drinking but states that she is definitely drinking enough. She states that she has morning headaches and was recently diagnosed with DARIUS. ROS is otherwise negative. When EMS arrived, she was given ASA 324mg and two doses of nitro which resolved her chest pain completely and it has not returned. Past Medical/Surgical History Medical Problems: (1) Asthma Status: Chronic (2) Atrial fibrillation Status: Chronic (3) Bipolar disorder Status: Chronic (4) C. difficile colitis Status: Resolved (5) Chronic abdominal pain Status: Chronic (6) Chronic cor pulmonale Status: Chronic (7) Chronic pain Status: Chronic (8) Chronic respiratory failure Status: Chronic (9) COPD, severe Status: Chronic (10) Depression Status: Chronic (11) DM type 2 (diabetes mellitus, type 2) Status: Chronic (12) DVT (deep venous thrombosis) Status: Resolved (13) Gastroparesis Status: Chronic (14) GERD (gastroesophageal reflux disease) Status: Chronic (15) HTN (hypertension) Status: Chronic (16) Hypothyroidism Status: Chronic (17) [place] toxicity Status: Resolved (18) DARIUS on CPAP Status: Chronic (19) Osteoarthritis Status: Chronic (20) PAF (paroxysmal atrial fibrillation) Status: Chronic Surgical Problems: (1) H/O: hysterectomy Status: Resolved (2) Hx of appendectomy Status: Resolved (3) Hx of cholecystectomy Status: Resolved (4) Hx of lumpectomy Status: Resolved (5) 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 Status: Resolved (6) Hx of tubal ligation Status: Resolved (7) Hx of umbilical hernia repair Status: Resolved Family History Diabetes mellitus MOTHER FH: Crohn's disease SISTER Hypertension MOTHER Social History Smoking Status: Current Every Day Smoker Smokeless Tobacco Use: No Alcohol Use: none Drug Use: none Marital Status: Housing status: lives with significant other Occupational Status: disabled Immunizations History of Influenza Vaccine: Yes Influenza Vaccine Date: May 30, 2015 History of Tetanus Vaccine?: Yes Tetanus Immunization Date: Apr 22, 2006 History of Pneumococcal: Yes Pneumococcal Date: Mar 24, 2015 History of Hepatitis B Vaccine: Yes Hepatitis Immunization Date: Feb 28, 2014 Multi-Drug Resistant Organisms History of MDRO: No Allergies Coded Allergies: BEE STING (Verified Allergy, Severe, SWELLING, 09/03/17) Lisinopril (Verified Allergy, Intermediate, FACE SWELLING, 09/03/17) Potato (Verified Allergy, Intermediate, BBQ chips - facial swelling, 09/03) Metronidazole (Verified Allergy, Mild, FACE SWELLING, 09/03/17) [place] (Verified Allergy, Mild, HIVES, 09/03/17) Alprazolam (Verified Allergy, Unknown, RED FACE, FACE SWELLING, 09/03/17) Lactose (Verified Adverse Reaction, Intermediate, VOMTING DIARRHEA ABDOMINAL PAIN, 09/03/17) Prednisone (Verified Adverse Reaction, Mild, unknown, 09/03/17) Colesevelam (Verified Adverse Reaction, Unknown, unknown, 09/03/17) [place] (Verified Adverse Reaction, Unknown, jitters, 09/03/17) Home Medications Scheduled Amitriptyline HCl (Amitriptyline HCl), 50 MG PO HS Amlodipine Besylate (Amlodipine Besylate), 10 MG PO QAM Atorvastatin (Lipitor), 40 MG PO HS Calcitriol (Calcitriol), 0.5 MCG PO 3XWK Cetirizine (Zyrtec), 10 MG PO QAM Cholecalciferol (Vitamin D3), 1,000 UNITS PO DAILY Docusate Sodium (Docusate Sodium), 1 CAP PO AFTERNOON Fentanyl (Duragesic), 50 MCG TOP CQ72HR Fluticasone Prop/Salmeterol (Advair Diskus 250/50 60 Dose), 1 PUFF INH BID Furosemide (Lasix), 20 MG PO BID Gabapentin (Gabapentin), 800 MG PO TID Home O2 Therapy (Oxygen), 3 LITERS NA CONTINOUS Insulin Glargine (Lantus Solostar), 16 UNITS SC BID Levothyroxine Sodium (Synthroid), 50 MCG PO QAM Methocarbamol (Methocarbamol), 750 MG PO TID Metoclopramide Hcl (Reglan), 5 MG PO TIDM Metolazone (Metolazone), 2.5 MG PO UD Metoprolol Tartrate (Lopressor) (Lopressor), 100 MG PO BID Multiple Vitamin (Multivitamin), 1 TAB PO QAM Olanzapine (Olanzapine), 2.5 MG PO HS Pantoprazole (Protonix), 40 MG PO QAM Potassium Chloride (Micro-K Ext Rel), 10 MEQ PO QAM Spironolactone (Aldactone), 0.5 TAB PO QAM Tiotropium [place] (Spiriva [place]er), 1 CAP INH DAILY Trazodone Hcl (Desyrel), 200 TAB PO HS Venlafaxine Hcl (Effexor Extended Rel), 225 MG PO QAM Warfarin Sod (Jantoven), 5 MG PO 2XWK Warfarin Sodium (Warfarin Sodium), 7.5 MG PO UD Scheduled PRN Epinephrine (Epipen), 0.3 MG IM UD PRN for ALLERGIC REACTION Ipratropium [place] (Ipratropium [place]), 1 VIAL NEB Q6H PRN for Shortness of Breath Levalbuterol Hcl (Levalbuterol Hcl), 1.25 MG NEB Q6H PRN for SOB/Wheezing Lorazepam (Lorazepam), 0.5 MG PO UD PRN for Anxiety/Agitation Oxycodone HCl (Oxycodone HCl), 5 MG PO QID PRN for Pain Review of Systems At least ten systems were reviewed and negative except as indicated in HPI. Physical Ex - H&P Physical Exam Vital Signs Date Time Temp Pulse Resp B/P (MAP) Pulse Ox O2 Delivery O2 Flow Rate FiO2 10/22/17 01:20 36.5 72 16 136/81 98 Nasal Cannula 3.0 10/22/17 01:09 63 20 129/53 98 Room Air 3.0 10/22/17 01:05 67 10/21/17 23:49 36.8 80 20 152/59 98 Room Air 3.0 10/21/17 22:25 70 20 124/46 98 Room Air 10/21/17 21:21 79 10/21/17 21:16 95 Nasal Cannula 3.0 10/21/17 21:15 95 Nasal Cannula 3.0 10/21/17 20:53 95 Nasal Cannula 3.0 10/21/17 20:53 36.7 98 20 110/55 95 Nasal Cannula 3.0 10/21/17 20:52 3 Nasal Cannula General Appearance: WD/WN, no apparent distress Head: normocephalic, atraumatic Eyes: normal inspection, PERRL, sclerae normal ENT: hearing grossly normal, pharynx normal, + pertinent finding (mucous membranes are moist) Neck: supple, no adenopathy, no JVD, trachea midline Respiratory/Chest: chest non-tender, lungs clear, normal breath sounds, no respiratory distress, no accessory muscle use Cardiovascular: regular rate, rhythm, no edema, no gallop, no JVD, no murmur, normal peripheral pulses Abdomen/GI: normal bowel sounds, non tender, soft, no organomegaly Back: normal inspection Extremities/Musculoskelatal: normal inspection, normal range of motion 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, no motor/sensory deficits, alert, normal mood/affect, oriented x 3 Skin: warm/dry Diagnostics - H&P Diagnostics Laboratory Results Test 10/21/17 22:18 10/22/17 02:22 10/22/17 02:30 10/22/17 03:34 RDW Standard Deviation 43.9 fL (36.4-46.3) RDW Coefficient of Variation 13.7 % (11.5-14.5) Mean Platelet Volume 9.5 fL (7.4-10.4) Activated Partial Thromboplast Time 39.7 SECONDS (21.0-31.0) Partial Thromboplastin Ratio 1.5 Magnesium Level 1.9 mg/dl (1.8-2.4) Total Bilirubin 0.2 mg/dl (0.2-1) Aspartate Amino Transf (AST/SGOT) 23 U/L (15-37) Alanine Aminotransferase (ALT/SGPT) 32 U/L (12-78) Alkaline Phosphatase 74 U/L (45-117) Total Creatine Kinase 164 U/L (26-192) Creatine Kinase MB 1.7 ng/ml (0.5-3.6) Creatine Kinase MB Ratio 1.0 (0-3.0) Total Protein 6.0 gm/dl (6.4-8.2) Albumin 2.7 gm/dl (3.4-5.0) Globulin 3.3 gm/dl (2.5-4.0) Albumin/Globulin Ratio 0.8 (0.9-2) Beta-Hydroxybutyric Acid 0.87 mg/dL (0.2-2.81) Est Creatinine Clear Calc Drug Dose 65.2 ml/min Urine Color YELLOW Urine Appearance CLEAR (CLEAR) Urine pH 6.0 (4.5-7.5) Urine Specific [place] 1.006 (1.000-1.030) Urine Protein NEG (NEG) Urine Glucose (UA) 3+ (NEG) Urine Ketones NEG (NEG) Urine Occult Blood NEG (NEG) Urine Nitrite NEG (NEG) Urine Bilirubin NEG (NEG) Urine Urobilinogen NEG (NEG) Urine Leukocyte Esterase NEG (NEG) Urine Osmolality 148 mOms/kg (500-800) Bedside Glucose 202 mg/dl (70-90) Test 10/22/17 03:55 Test 10/21/17 22:18 10/22/17 02:22 10/22/17 02:30 10/22/17 03:34 RDW Standard Deviation 43.9 fL (36.4-46.3) RDW Coefficient of Variation 13.7 % (11.5-14.5) Mean Platelet Volume 9.5 fL (7.4-10.4) Activated Partial Thromboplast Time 39.7 SECONDS (21.0-31.0) Partial Thromboplastin Ratio 1.5 Magnesium Level 1.9 mg/dl (1.8-2.4) Total Bilirubin 0.2 mg/dl (0.2-1) Aspartate Amino Transf (AST/SGOT) 23 U/L (15-37) Alanine Aminotransferase (ALT/SGPT) 32 U/L (12-78) Alkaline Phosphatase 74 U/L (45-117) Total Creatine Kinase 164 U/L (26-192) Creatine Kinase MB 1.7 ng/ml (0.5-3.6) Creatine Kinase MB Ratio 1.0 (0-3.0) Total Protein 6.0 gm/dl (6.4-8.2) Albumin 2.7 gm/dl (3.4-5.0) Globulin 3.3 gm/dl (2.5-4.0) Albumin/Globulin Ratio 0.8 (0.9-2) Beta-Hydroxybutyric Acid 0.87 mg/dL (0.2-2.81) Est Creatinine Clear Calc Drug Dose 65.2 ml/min Urine Color YELLOW Urine Appearance CLEAR (CLEAR) Urine pH 6.0 (4.5-7.5) Urine Specific [place] 1.006 (1.000-1.030) Urine Protein NEG (NEG) Urine Glucose (UA) 3+ (NEG) Urine Ketones NEG (NEG) Urine Occult Blood NEG (NEG) Urine Nitrite NEG (NEG) Urine Bilirubin NEG (NEG) Urine Urobilinogen NEG (NEG) Urine Leukocyte Esterase NEG (NEG) Urine Osmolality 148 mOms/kg (500-800) Bedside Glucose 202 mg/dl (70-90) Test 10/22/17 03:55 Results Past 24 Hours Test 10/21/17 22:18 10/22/17 01:44 10/22/17 02:22 10/22/17 02:30 Range/Units White Blood Count 8.63 4.8-10.8 K/uL Red Blood Count 3.74 4.2-5.4 M/uL Hemoglobin 11.3 12.0-16.0 g/dL Hematocrit 32.9 37-47 % Mean Corpuscular Volume 88.0 80-100 fL Mean Corpuscular Hemoglobin 30.2 25-34 pg Mean Corpuscular Hemoglobin Concent 34.3 32-36 g/dl RDW Standard Deviation 43.9 36.4-46.3 fL RDW Coefficient of Variation 13.7 11.5-14.5 % Platelet Count 249 130-400 K/uL Mean Platelet Volume 9.5 7.4-10.4 fL Prothrombin Time 25.0 9.0-12.0 SECONDS Prothromb Time International Ratio 2.4 0.9-1.1 Activated Partial Thromboplast Time 39.7 21.0-31.0 SECONDS Partial Thromboplastin Ratio 1.5 Sodium Level 121 125 136-145 mmol/L Potassium Level 2.9 2.9 3.5-5.1 mmol/L Chloride Level 78 81 98-107 mmol/L Carbon Dioxide Level 38 41 21-32 mmol/L Anion Gap 6.0 3.0 3-11 mmol/L Blood Urea Nitrogen 21 20 7-18 mg/dl Creatinine 1.08 1.00 0.60-1.20 mg/dl Est Creatinine Clear Calc Drug Dose 61.8 65.2 ml/min Estimated GFR () 64.2 70.4 Estimated GFR (Non- 55.4 60.8 BUN/Creatinine Ratio 19.4 20.3 10-20 Random Glucose 330 225 70-99 mg/dl Calcium Level 8.6 9.0 8.5-10.1 mg/dl Magnesium Level 1.9 1.8-2.4 mg/dl Total Bilirubin 0.2 0.2-1 mg/dl Aspartate Amino Transf (AST/SGOT) 23 15-37 U/L Alanine Aminotransferase (ALT/SGPT) 32 12-78 U/L Alkaline Phosphatase 74 45-117 U/L Total Creatine Kinase 164 26-192 U/L Creatine Kinase MB 1.7 0.5-3.6 ng/ml Creatine Kinase MB Ratio 1.0 0-3.0 Troponin I < 0.015 0-0.045 ng/ml Total Protein 6.0 6.4-8.2 gm/dl Albumin 2.7 3.4-5.0 gm/dl Globulin 3.3 2.5-4.0 gm/dl Albumin/Globulin Ratio 0.8 0.9-2 Beta-Hydroxybutyric Acid 0.87 0.2-2.81 mg/dL Urine Color YELLOW Urine Appearance CLEAR CLEAR Urine pH 6.0 4.5-7.5 Urine Specific [place] 1.006 1.000-1.030 Urine Protein NEG NEG Urine Glucose (UA) 3+ NEG Urine Ketones NEG NEG Urine Occult Blood NEG NEG Urine Nitrite NEG NEG Urine Bilirubin NEG NEG Urine Urobilinogen NEG NEG Urine Leukocyte Esterase NEG NEG Urine Osmolality 148 500-800 mOms/kg Diagnostic Radiology CHEST ONE VIEW PORTABLE HISTORY: 62 years-old Female Chest pain acute atypical chest pain COMPARISON: Portable chest radiograph 08/17/2017 TECHNIQUE: Portable AP view of the chest FINDINGS: Cardiac silhouette is again moderately enlarged. Prosthetic cardiac valve redemonstrated. Atherosclerosis of the aorta. No pneumothorax or large pleural effusion. No lobar airspace consolidation. There are hazy bibasilar opacities suggesting atelectasis. Mild interstitial pulmonary edema is noted with pulmonary vascular congestion. Probable emphysematous changes noted. Bones of the chest appear grossly intact. Surgical clips project over the right upper chest. IMPRESSION: 1. Cardiomegaly with mild pulmonary edema. 2. Bibasilar opacities suggest atelectasis. EKG SR83, RBBB-similar to prior EKG Impression - H&P Impression Assessment and Plan 62 yo diabetic smoker female with no known heart disease presents with chest pain relieved with nitro. 1. Chest pain-risk factors for ACS include diabetes, HTN, and active smoking. From the description of events it is possible that this pain could have been from lying down after her recent meal. However, with her risk factors, ACS must be excluded, especially in light of the resolution of pain with the nitro. Cardiology consult placed to help with risk stratification. she denies pain or dyspnea in the last 6 months. She currently has a nonischemic EKG and negative cardiac markers. Trend serial enzymes overnight. EKG in am. 2. Hyponatremia-with low urine osmolality consider psychogenic polydipsia in the setting of dry mouth and "feeling dehydrated" all the time. May also be secondary to overdiuresis in the setting of Lasix use and hypokalemia. She does have hyperglycemia, however, UOsm should be slightly higher if this was related to osmotic diuresis. IVF were given in the ER with an improvement in Na from 121 to 125. Will monitor closely for continued rise. 3. Hypokalemia-poss 2/2 diuretic use. Replace IV/PO 4. DMII-uncontrolled, coverage around 0330 give. Pharmacy did not dispense evening Lantus so this time was adjusted to 0800. Cont ISS/Lantus with carb coverage. 5. Smoker-nicotine patch 6. Atrial fibrillation-rate controlled with BB and cont coumadin 7. Chronic pain-cont Fentanyl and prn Oxycodone 8. chronic hypoxic respiratory failure 2/2/ COPD-stable, cont home inhalers. 9. Chronic diastolic CHF-compensated. Cont medical management including spironolatone, however, will hold Lasix and metolazone in setting of hyponatremia. 10. DARIUS-refused CPAP. Critical bicarb was noted on labwork. DVT proph-coumadin Full Code Dispo-telemetry DO Rodriguez [facility]. [facility] Hospitalist Level of Care Telemetry Advanced Directives Existing Living Will: No Existing Power of Process Planner: No Resuscitation Status FULL RESUSCITATION VTE Prophylaxis VTE Risk Assessment Done? Y/N: Yes Risk Level: Moderate Given or contraindicated: Warfarin (Coumadin) Physical Exam (per Admitting): General Appearance: WD/WN, no apparent distress Head: normocephalic, atraumatic Eyes: normal inspection, PERRL, sclerae normal ENT: hearing grossly normal, pharynx normal, + pertinent finding (mucous membranes are moist) Neck: supple, no adenopathy, no JVD, trachea midline Respiratory/Chest: chest non-tender, lungs clear, normal breath sounds, no respiratory distress, no accessory muscle use Cardiovascular: regular rate, rhythm, no edema, no gallop, no JVD, no murmur , normal peripheral pulses Abdomen/GI: normal bowel sounds, non tender, soft, no organomegaly Back: normal inspection Extremities/Musculoskelatal: normal inspection, normal range of motion 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 Serial Troponin to R/O ACS Cardiology consult placed to help with risk stratification. She currently has a nonischemic EKG and negative cardiac markers. Denies any more pain and Troponin remains unremarkable Appreciate cardiology input and recommendation Hyponatremia -likely secondary to Polydipsia Low urine osmolality suggest psychogenic polydipsia in the setting of dry mouth and "feeling dehydrated" all the time. May also be secondary to overdiuresis in the setting of Lasix use and hypokalemia. IVF were given in the ER with an improvement in Na from 121 to 125. Normalized this AM 10/22/16 Electrolytes are normalized Hypokalemia-poss 2/2 diuretic use. Replace IV/PO Normalized DMII-uncontrolled, coverage around 0330 give. Pharmacy did not dispense evening Lantus so this time was adjusted to 0800. Cont ISS/Lantus with carb coverage. Tobacco Use disorder Nicotine patch Atrial fibrillation-rate controlled with BB and cont Coumadin No acute issue Chronic pain-cont Fentanyl and prn Oxycodone Chronic hypoxic respiratory failure 2/2/ COPD-stable, cont home inhalers No acute issue Has Home Oxygen . Chronic diastolic CHF-compensated. Cont medical management including spironolactone, however, will hold Lasix and metolazone in setting of hyponatremia. DARIUS-refused CPAP. Critical bicarb was noted on labwork. DVT proph-Coumadin Full Code Discharge today Total time spent on discharge = 35 minutes This includes examination of the patient, discharge planning, medication reconciliation, and communication with other providers. Discharge Instructions Date of Service Oct 23, 2017. Admission Reason for Admission: Chest Pain,Hyponatremia Discharge Discharge Diagnosis / Problem: Chest pain -no ACS Discharge Goals Goal(s): Prevent Disease Progression Activity Recommendations Activity Limitations: resume your previous activity . Instructions / Follow-Up Instructions / Follow-Up Dr Hoang (Dr Goins is not available) on 10/28/17 at 10:45 AM, Mr Ray on 11/21/17 at 2:15 PM and Coagulation clinic notified Current Hospital Diet Patient's current hospital diet: AHA Diet (Heart Healthy), Diabetes Type 2 Diet , Low Lactose Diet Discharge Diet Recommended Diet: AHA Diet (Heart Healthy), Low Sodium Diet (2gm Na), Diabetes Type 2 Diet Fluid Restriction: 1500 ml (6 cups) Pending Studies Studies pending at discharge: no Laboratory Results Hemoglobin A1c Test 10/22/17 03:55 Range/Units Estimated Average Glucose 206 mg/dl Hemoglobin A1c 8.8 H 4.5-5.6 % Lipid Panel Test 10/22/17 03:55 Range/Units Triglycerides Level 129 0-150 mg/dl Cholesterol Level 121 0-200 mg/dl HDL Cholesterol 72 mg/dl Cholesterol/HDL Ratio 1.7 LDL Cholesterol, Calculated 23 mg/dl Medical Emergencies . Who to Call and When: Medical Emergencies: If at any time you feel your situation is an emergency, please call 911 immediately. . Non-Emergent Contact Non-Emergency issues call your: Primary Care Provider . Past History Medical & Surgical History: (1) Chest pain (2) Hyponatremia (3) Depression (4) COPD, severe (5) DVT (deep venous thrombosis) (6) Gastroparesis (7) Hypothyroidism (8) DARIUS on CPAP (9) Atrial fibrillation (10) HTN (hypertension) (11) Chronic cor pulmonale (12) CHF (congestive heart failure) (13) Chronic abdominal pain (14) Hx of lumpectomy (15) Hx of cholecystectomy (16) Hx of umbilical hernia repair (17) Hx of appendectomy (18) H/O: hysterectomy (19) Hx of mitral valve repair . "Provider Documentation" section prepared by Dee Sierra. . VTE Core Measure Inpt VTE Proph given/why not?: Warfarin (Coumadin) <Electronically signed by Dee Sierra M.D.> Additional Copies To Manoj Goins D.O.
== END 2017-10-23 13:30 | disposition home or self-care (01) | DRG 641 ==
LOC: EDBD 20:38 → C.EDB 20:40 → C.MED 10-22 00:59 → EDBEDREQ 10-22 01:02 → ENRESERV 10-22 01:08
PROVIDERS: ADMIT Hospitalist; ATTEND Internal Medicine
DX: E87.1 Hypo-osmolality and hyponatremia (principal); J96.11 Chronic respiratory failure with hypoxia; I50.32 Chronic diastolic (congestive) heart failure; R07.9 Chest pain, unspecified; E87.6 Hypokalemia; I48.2 Chronic atrial fibrillation; J44.9 Chronic obstructive pulmonary disease, unspecified; E11.65 Type 2 diabetes mellitus with hyperglycemia; I11.0 Hypertensive heart disease with heart failure; K21.9 Gastro-esophageal reflux disease without esophagitis; F32.9 Major depressive disorder, single episode, unspecified; R63.1 Polydipsia; G89.29 Other chronic pain; G47.33 Obstructive sleep apnea (adult) (pediatric); F17.200 Nicotine dependence, unspecified, uncomplicated; Z79.01 Long term (current) use of anticoagulants; Z79.4 Long term (current) use of insulin; Z79.899 Other long term (current) drug therapy; Z91.018 Allergy to other foods; Z88.8 Allergy status to other drugs, medicaments and biological substances; Z91.030 Bee allergy status

== ENCOUNTER 2017-10-27 16:56 | Emergency (ER) | payer OTHER ==
[~2017-10-27] VITALS: Ht 162.6 cm; Wt 93.5 kg
[~2017-10-27 16:56] MED LIST changes: -GABA-112 PO; +NICO14DI5 TD; +RBX750 PO; +RXC5 PO; +TRAZ-122 PO; -TRAZ50TA35 PO; +VTMD1000 PO; +WARF-284 PO; +ZRX25 PO
[2017-10-27 17:11] VITALS: TEMP 37.1; Ht 162.6 cm; Wt 93.5 kg
--- NOTE | 2017-10-27 18:39 | EMERGENCY ROOM VISIT NOTE ---
History Report prepared by [place]: John Oviedo Under the Supervision of: Dr. Stephie Sanchez D.O. First contact with patient: 18:15 Chief Complaint: CONSTIPATION Stated Complaint: HAVENT HAD A BOWEL MOVEMENT SINCE FRIDAY Nursing Triage Summary: Pt reports no BM since last . Has tried OTC with no results. Lower abd pain, nausea. History of Present Illness The patient is a 62 year old female who presents to the Emergency Room with complaints of worsening, lower abdominal pain beginning four days ago. The patient states she has been to the ED before for diarrhea. She reports her last bowel movement was four days ago. The patient notes she believes she is constipated. She states she developed lower abdominal pain, shortness of breath , nausea, hot flashes, and chills over the past four days when she is trying to have a bowel movement. The patient reports she is bloated and distended as well. She notes she can feel pressure in her rectum, but she cannot 'push it out.' The patient states she has tried Ex-Lax, prune juice, drinking a lot of water, and eating a lot of food, but they are not helping. She reports she has not tried an enema. The patient notes she has a history of IBS. She states she recently started a medication that she takes Mondays and Fridays, but she cannot remember what it is. The patient reports she is on 3L of oxygen constantly for her history of COPD Patient denies any fevers/chills, vomiting , blood with the bowel movement. Patient denies back pain or change in urine. Patient states she is still passing gas. Source of History: patient Onset: four days ago Position: abdomen (lower) Quality: other (distension and bloating) Timing: worsening Associated Symptoms: + chills, + SOB, + nausea Note: Associated symptoms: hot flashes Review of Systems See HPI for pertinent positives & negatives. A total of 10 systems reviewed and were otherwise negative. Past Medical & Surgical Medical Problems: (1) Acute electrocardiogram changes (2) Asthma (3) Atrial fibrillation (4) Bipolar disorder (5) C. 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 (24) DARIUS on CPAP (25) Osteoarthritis (26) PAF (paroxysmal atrial fibrillation) (27) Pneumonia Surgical Problems: (1) H/O: hysterectomy (2) Hx of appendectomy (3) Hx of cholecystectomy (4) Hx of lumpectomy (5) Hx of mitral valve repair (6) Hx of tubal ligation (7) Hx of umbilical hernia repair Family History Diabetes mellitus MOTHER FH: Crohn's disease SISTER Hypertension MOTHER Social History Smoking Status: Current Every Day Smoker Alcohol Use: none Drug Use: none Marital Status: Housing Status: lives with significant other Occupation Status: disabled Current/Historical Medications Scheduled Amitriptyline HCl (Amitriptyline HCl), 50 MG PO HS Amlodipine Besylate (Amlodipine Besylate), 10 MG PO QAM Atorvastatin (Lipitor), 40 MG PO HS Calcitriol (Calcitriol), 0.5 MCG PO 3XWK Cetirizine (Zyrtec), 10 MG PO QAM Cholecalciferol (Vitamin D3), 1,000 UNITS PO DAILY Docusate Sodium (Docusate Sodium), 1 CAP PO AFTERNOON Fentanyl (Duragesic), 50 MCG TOP [id number] Fluticasone Prop/Salmeterol (Advair Diskus 250/50 60 Dose), 1 PUFF INH BID Furosemide (Lasix), 20 MG PO BID Gabapentin (Gabapentin), 800 MG PO TID Home O2 Therapy (Oxygen), 3 LITERS NA CONTINOUS Insulin Glargine (Lantus Solostar), 16 UNITS SC BID Levothyroxine Sodium (Synthroid), 50 MCG PO QAM Methocarbamol (Methocarbamol), 750 MG PO TID Metoclopramide Hcl (Reglan), 5 MG PO TIDM Metolazone (Metolazone), 2.5 MG PO UD Metoprolol Tartrate (Lopressor) (Lopressor), 100 MG PO BID Multiple Vitamin (Multivitamin), 1 TAB PO QAM Olanzapine (Olanzapine), 2.5 MG PO HS Pantoprazole (Protonix), 40 MG PO QAM Potassium Chloride (Micro-K Ext Rel), 10 MEQ PO BID Spironolactone (Aldactone), 12.5 MG PO QAM Tiotropium Talbott (Spiriva Handihaler), 1 CAP INH DAILY Trazodone Hcl (Desyrel), 200 TAB PO HS Venlafaxine Hcl (Effexor Extended Rel), 225 MG PO QAM Warfarin Sod (Jantoven), 5 MG PO 2XWK Warfarin Sodium (Warfarin Sodium), 7.5 MG PO UD Scheduled PRN Epinephrine (Epipen), 0.3 MG IM UD PRN for ALLERGIC REACTION Ipratropium Talbott (Ipratropium Talbott), 1 VIAL NEB Q6H PRN for Shortness of Breath Levalbuterol Hcl (Levalbuterol Hcl), 1.25 MG NEB Q6H PRN for SOB/Wheezing Lorazepam (Lorazepam), 0.5 MG PO UD PRN for Anxiety/Agitation Oxycodone HCl (Oxycodone HCl), 5 MG PO QID PRN for Pain Allergies Coded Allergies: BEE STING (Verified Allergy, Severe, SWELLING, 10/27/17) Lisinopril (Verified Allergy, Intermediate, FACE SWELLING, 10/27/17) Potato (Verified Allergy, Intermediate, BBQ chips - facial swelling, ) Metronidazole (Verified Allergy, Mild, FACE SWELLING, 10/27/17) Talmage (Verified Allergy, Mild, HIVES, 10/27/17) Alprazolam (Verified Allergy, Unknown, RED FACE, FACE SWELLING, 10/27/17) Lactose (Verified Adverse Reaction, Intermediate, VOMTING DIARRHEA ABDOMINAL PAIN, 10/27/17) Prednisone (Verified Adverse Reaction, Mild, unknown, 10/27/17) Colesevelam (Verified Adverse Reaction, Unknown, unknown, 10/27/17) Calwa (Verified Adverse Reaction, Unknown, jitters, 10/27/17) Physical Exam Vital Signs Date Time Temp Pulse Resp B/P (MAP) Pulse Ox O2 Delivery O2 Flow Rate FiO2 10/27/17 20:38 76 20 122/78 99 10/27/17 19:24 71 20 128/61 97 Room Air 10/27/17 17:14 Nasal Cannula 3.0 10/27/17 17:11 37.1 80 18 124/58 88 Room Air Physical Exam GENERAL: alert, well appearing, well nourished, no distress, non-toxic. Nasal Canula in place. EYE EXAM: normal conjunctiva, PERRL and EOM's grossly intact OROPHARYNX: no exudate, no erythema, lips, buccal mucosa, and tongue normal and mucous membranes are moist NECK: supple, no nuchal rigidity, no adenopathy, non-tender LUNGS: Clear to auscultation. Normal chest wall mechanics HEART: no murmurs, S1 normal and S2 normal ABDOMEN: abdomen soft, no focal abdominal tenderness to palpation or reproducible tenderness, dull to percussion, normo-active bowel sounds, no masses, no rebound or guarding. BACK: Back is symmetrical on inspection and there is no deformity, no midline tenderness, no CVA tenderness. SKIN: no rashes and no bruising UPPER EXTREMITIES: upper extremities are grossly normal. LOWER EXTREMITIES: Trace bilateral edema. NEURO EXAM: Normal sensorium, cranial nerves II-XII intact, normal speech, no weakness of arms, no weakness of legs. Medical Decision & Procedures ER Provider Diagnostic Interpretation: Radiology results have been interpreted by the radiologist and reviewed by me. ABDOMEN 2VIEW W/PA CHEST RTN HISTORY: 62 years-old Female constipation constipation COMPARISON: Chest radiograph 10/21/2017 TECHNIQUE: PA view of the chest with erect and supine views of the abdomen FINDINGS: Cardiac silhouette is again enlarged. Prosthetic cardiac valve redemonstrated. Atherosclerosis of the aorta. Pulmonary vascular congestion with persistent interstitial coarsening redemonstrated along with patchy bibasilar opacities. No pneumothorax or pleural effusion. Surgical clips project over the right axilla. Degenerative changes are noted within the spine and shoulders. Multiple air-fluid levels are seen throughout bowel within the mid and right lateral abdomen which appears to be within loops of large bowel. Mildly dilated loop of small bowel seen within the left midabdomen, 4.2 cm. Moderate to extensive stool volume is noted throughout, notably within the descending and rectosigmoid colon suggesting constipation. No pneumoperitoneum or pneumatosis. Surgical clips of the right upper abdomen suggest cholecystectomy with additional surgical clip of the right midabdomen and left inguinal distribution. No urolith or acute fracture identified. IMPRESSION: 1. Multiple air-fluid levels within bowel throughout the abdomen suggest large bowel loops. Colonic ileus or diarrheal state are differential considerations. 2. Mildly dilated loop of small bowel within the left midabdomen is noted which may reflect focal ileus. No definite evidence of high-grade small bowel obstruction or pneumoperitoneum. 3. Moderate to extensive stool volume, notably involving the descending and rectosigmoid colon suggest constipation. 4. Cardiomegaly with persistent interstitial opacities likely reflecting chronic changes. Mild pulmonary edema could have a similar appearance. The above report was generated using voice recognition software. It may contain grammatical, syntax or spelling errors. Electronically signed by: Ye Alva M.D. 10/27/2017 7:09 PM Dictated Date/Time: 10/27/2017 7:03 PM ED Course 1816: The patient was evaluated in room B11B. A complete history and physical exam was performed. 2024: Upon reevaluation, the patient is feeling better, completely dressed, and eating a bag of Doritos. I discussed the findings and the treatment plan with the patient. She verbalizes agreement and understanding. The patient was discharged home. Medical Decision Differential diagnosis: Etiologies such as functional constipation, impaction, obstruction, volvulus, metabolic abnormality, infection, neurologic, as well as others were entertained. Patient well-appearing here despite complaints. Patient reported feeling markedly improved after having a large BM following successful enema here in the department. Discussed with her possible differential diagnosis for constipation. Vital signs otherwise stable. Initial hypoxia taken patient was off of her chronic nasal cannula at 3 L/m. While patient remained on usual nasal cannula her oxygen saturation saturations were in the mid 90s. Patient's abdomen soft and nontender throughout. Have a low suspicion for perforation, occult GI bleed, enteric ischemia, other vascular abnormality, SBO, diverticulitis, colitis, occult respiratory infection, or additional pathology. Discussed with patient continued use of her medications, appropriate hydration, waist prevent constipation, symptoms watch and return for , she verbalized understanding was agreeable with plan. Medication Reconcilliation Current Medication List: was personally reviewed by me Blood Pressure Screening Patient's blood pressure: Normal blood pressure Blood pressure disposition: Did not require urgent referral Impression Primary Impression: Constipation Scribe Attestation The scribe's documentation has been prepared under my direction and personally reviewed by me in its entirety. I confirm that the note above accurately reflects all work, treatment, procedures, and medical decision making performed by me. Departure Information Dispostion Home / Self-Care Referrals Manoj Goins D.O. (PCP) Forms HOME CARE DOCUMENTATION FORM, IMPORTANT VISIT INFORMATION Patient Instructions ED Constipation, My [facility] Additional Instructions Please continue regular medications as prescribed. If you develop any worsening abdominal pain, recurrent constipation, fevers, nausea or vomiting, noticed black or bloody stools, have more diarrhea than normal, or you have any other new or concerning symptoms, please return the emergency room. Problem Qualifiers Primary Impression: Constipation Constipation type: unspecified constipation type Qualified Codes: K59.00 - Constipation, unspecified
--- NOTE | 2017-10-27 19:10 | DIAGNOSTIC IMAGING REPORT ---
ABDOMEN 2VIEW W/PA CHEST RTN HISTORY: 62 years-old Female constipation constipation COMPARISON: Chest radiograph 10/21/2017 TECHNIQUE: PA view of the chest with erect and supine views of the abdomen FINDINGS: Cardiac silhouette is again enlarged. Prosthetic cardiac valve redemonstrated. Atherosclerosis of the aorta. Pulmonary vascular congestion with persistent interstitial coarsening redemonstrated along with patchy bibasilar opacities. No pneumothorax or pleural effusion. Surgical clips project over the right axilla. Degenerative changes are noted within the spine and shoulders. Multiple air-fluid levels are seen throughout bowel within the mid and right lateral abdomen which appears to be within loops of large bowel. Mildly dilated loop of small bowel seen within the left midabdomen, 4.2 cm. Moderate to extensive stool volume is noted throughout, notably within the descending and rectosigmoid colon suggesting constipation. No pneumoperitoneum or pneumatosis. Surgical clips of the right upper abdomen suggest cholecystectomy with additional surgical clip of the right midabdomen and left inguinal distribution. No urolith or acute fracture identified. IMPRESSION: 1. Multiple air-fluid levels within bowel throughout the abdomen suggest large bowel loops. Colonic ileus or diarrheal state are differential considerations. 2. Mildly dilated loop of small bowel within the left midabdomen is noted which may reflect focal ileus. No definite evidence of high-grade small bowel obstruction or pneumoperitoneum. 3. Moderate to extensive stool volume, notably involving the descending and rectosigmoid colon suggest constipation. 4. Cardiomegaly with persistent interstitial opacities likely reflecting chronic changes. Mild pulmonary edema could have a similar appearance. The above report was generated using voice recognition software. It may contain grammatical, syntax or spelling errors. Electronically signed by: Ye Alva M.D. 10/27/2017 7:09 PM Dictated Date/Time: 10/27/2017 7:03 PM
[2017-10-27 20:38] VITALS: BP 122/78; PULSE 76; O2SAT 99
== END 2017-10-27 20:40 | disposition home or self-care (01) ==
LOC: C.EDB 16:58
DX: K59.00 Constipation, unspecified (principal); K58.9 Irritable bowel syndrome, unspecified; J44.9 Chronic obstructive pulmonary disease, unspecified; E11.9 Type 2 diabetes mellitus without complications; I11.0 Hypertensive heart disease with heart failure; E03.9 Hypothyroidism, unspecified; I48.91 Unspecified atrial fibrillation; I50.9 Heart failure, unspecified; F32.9 Major depressive disorder, single episode, unspecified; F17.200 Nicotine dependence, unspecified, uncomplicated; Z90.49 Acquired absence of other specified parts of digestive tract; Z99.81 Dependence on supplemental oxygen; Z79.4 Long term (current) use of insulin; Z79.01 Long term (current) use of anticoagulants; Z86.718 Personal history of other venous thrombosis and embolism; Z91.030 Bee allergy status; Z88.8 Allergy status to other drugs, medicaments and biological substances; Z91.018 Allergy to other foods; Z88.1 Allergy status to other antibiotic agents; Z83.3 Family history of diabetes mellitus; Z83.79 Family history of other diseases of the digestive system; Z82.49 Family history of ischemic heart disease and other diseases of the circulatory system

== ENCOUNTER 2017-10-29 08:22 | Emergency (ER) | payer OTHER ==
[~2017-10-29] VITALS: Ht 162.6 cm; Wt 95.7 kg
[~2017-10-29 08:22] MED LIST changes: -NICO14DI5 TD
[2017-10-29 08:29] VITALS: TEMP 36.9; Ht 162.6 cm; Wt 95.7 kg
[2017-10-29] MEDS ORDERED: ALBUT/IPRATROP 3MG/0.5MG NEB 3 ML VIAL ONE (08:31)
[2017-10-29 08:33] VITALS: O2SAT 92
[2017-10-29] MEDS ORDERED: LEVALBUTEROL 1.25MG/0.5ML NEB INH STA (08:33)
[2017-10-29] MEDS ORDERED: METHYLPREDNISOLONE 125 MG VIAL IV STA (08:33)
[2017-10-29] MEDS ORDERED: MAGNESIUM SULFATE 1GM / D5W 1 GM BAG IV STA (08:33)
--- NOTE | 2017-10-29 08:35 | EMERGENCY ROOM VISIT NOTE ---
History Report prepared by [place]: Tigre Parnell Under the Supervision of: Dr. Wil Coffman M.D. First contact with patient: 08:25 Chief Complaint: RESPIRATORY PROBLEMS Stated Complaint: RESPIRATORY History of Present Illness The patient is a 62 year old female who presents to the Emergency Room with complaints of worsening difficulty breathing that began a couple days ago. The patient also notes that she has been coughing persistently as of lately. She is on 3 L of oxygen at home at her baseline, but she denies any steroid use currently. The patient did receive a breathing treatment via EMS prior to arrival. 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 A total of 10 systems reviewed and were otherwise negative. Past Medical & Surgical Medical Problems: (1) Acute electrocardiogram changes (2) Asthma (3) Atrial fibrillation (4) Bipolar disorder (5) C. difficile colitis (6) CHF (congestive heart failure) (7) Chronic abdominal pain (8) Chronic cor pulmonale (9) Chronic pain (10) Chronic respiratory failure (11) COPD with exacerbation (12) COPD, severe (13) Cor pulmonale (chronic) (14) Depression (15) DM type 2 (diabetes mellitus, type 2) (16) DVT (deep venous thrombosis) (17) Gastroparesis (18) GERD (gastroesophageal reflux disease) (19) History of ear infection (20) HTN (hypertension) (21) Hypokalemia (22) Hypothyroidism (23) Corn toxicity (24) DARIUS on CPAP (25) Osteoarthritis (26) PAF (paroxysmal atrial fibrillation) (27) Pneumonia Surgical Problems: (1) H/O: hysterectomy (2) Hx of appendectomy (3) Hx of cholecystectomy (4) Hx of lumpectomy (5) Hx of mitral valve repair (6) Hx of tubal ligation (7) Hx of umbilical hernia repair Family History Diabetes mellitus MOTHER FH: Crohn's disease SISTER Hypertension MOTHER Social History Smoking Status: Current Every Day Smoker Alcohol Use: none Drug Use: none Marital Status: Housing Status: lives with significant other Occupation Status: disabled Current/Historical Medications Scheduled Amitriptyline HCl (Amitriptyline HCl), 50 MG PO HS Amlodipine Besylate (Amlodipine Besylate), 10 MG PO QAM Atorvastatin (Lipitor), 40 MG PO HS Calcitriol (Calcitriol), 0.5 MCG PO 3XWK Cetirizine (Zyrtec), 10 MG PO QAM Cholecalciferol (Vitamin D3), 1,000 UNITS PO DAILY Docusate Sodium (Docusate Sodium), 1 CAP PO AFTERNOON Fentanyl (Duragesic), 50 MCG TOP [id number] Fluticasone Prop/Salmeterol (Advair Diskus 250/50 60 Dose), 1 PUFF INH BID Furosemide (Lasix), 20 MG PO BID Gabapentin (Gabapentin), 800 MG PO TID Home O2 Therapy (Oxygen), 3 LITERS NA CONTINOUS Insulin Glargine (Lantus Solostar), 16 UNITS SC BID Levothyroxine Sodium (Synthroid), 50 MCG PO QAM Methocarbamol (Methocarbamol), 750 MG PO TID Metoclopramide Hcl (Reglan), 5 MG PO TIDM Metolazone (Metolazone), 2.5 MG PO UD Metoprolol Tartrate (Lopressor) (Lopressor), 100 MG PO BID Multiple Vitamin (Multivitamin), 1 TAB PO QAM Olanzapine (Olanzapine), 2.5 MG PO HS Pantoprazole (Protonix), 40 MG PO QAM Potassium Chloride (Micro-K Ext Rel), 10 MEQ PO BID Spironolactone (Aldactone), 12.5 MG PO QAM Tiotropium Gregory (Spiriva Handihaler), 1 CAP INH DAILY Trazodone Hcl (Desyrel), 200 TAB PO HS Venlafaxine Hcl (Effexor Extended Rel), 225 MG PO QAM Warfarin Sod (Jantoven), 5 MG PO 2XWK Warfarin Sodium (Warfarin Sodium), 7.5 MG PO UD Scheduled PRN Epinephrine (Epipen), 0.3 MG IM UD PRN for ALLERGIC REACTION Ipratropium Gregory (Ipratropium Gregory), 1 VIAL NEB Q6H PRN for Shortness of Breath Levalbuterol Hcl (Levalbuterol Hcl), 1.25 MG NEB Q6H PRN for SOB/Wheezing Lorazepam (Lorazepam), 0.5 MG PO UD PRN for Anxiety/Agitation Oxycodone HCl (Oxycodone HCl), 5 MG PO QID PRN for Pain Allergies Coded Allergies: BEE STING (Verified Allergy, Severe, SWELLING, 10/27/17) Lisinopril (Verified Allergy, Intermediate, FACE SWELLING, 10/27/17) Potato (Verified Allergy, Intermediate, BBQ chips - facial swelling, ) Metronidazole (Verified Allergy, Mild, FACE SWELLING, 10/27/17) [place] (Verified Allergy, Mild, HIVES, 10/27/17) Alprazolam (Verified Allergy, Unknown, RED FACE, FACE SWELLING, 10/27/17) Lactose (Verified Adverse Reaction, Intermediate, VOMTING DIARRHEA ABDOMINAL PAIN, 10/27/17) Prednisone (Verified Adverse Reaction, Mild, unknown, 10/27/17) Colesevelam (Verified Adverse Reaction, Unknown, unknown, 10/27/17) Corn (Verified Adverse Reaction, Unknown, jitters, 10/27/17) Physical Exam Vital Signs Date Time Temp Pulse Resp B/P (MAP) Pulse Ox O2 Delivery O2 Flow Rate FiO2 10/29/17 10:27 89 22 95 10/29/17 10:12 86 16 96 10/29/17 10:11 156/70 10/29/17 09:57 87 24 94 10/29/17 09:52 89 18 156/70 94 Nasal Cannula 3.0 10/29/17 09:22 91 17 93 10/29/17 08:52 95 18 94 10/29/17 08:33 96 10/29/17 08:33 92 Nasal Cannula 3.0 10/29/17 08:33 92 Nasal Cannula 3.0 10/29/17 08:29 36.9 107 24 136/82 92 Nasal Cannula 3.0 10/29/17 08:26 136/82 10/29/17 08:21 92 Nasal Cannula 3.0 Physical Exam GENERAL: Patient is a healthy-appearing well-nourished female. HEAD: Normocephalic atraumatic EYES: Ocular movements intact pupils equal and react to light OROPHARYNX mucous membranes are moist no exudates present no erythema or edema present NECK: Supple no nuchal rigidity CHEST: Good equal expansion LUNGS: There are slight bilateral wheezes at the bases. CARDIAC: Normal S1 and S2 ABDOMEN: Soft nontender no guarding BACK: No CVA tenderness EXTREMITIES: No pain upon palpation normal muscle strength in all groups no clubbing cyanosis or edema NEURO: Patient is following commands and answering questions appropriately. Alert and oriented x3 Cranial Nerves 2-12 grossly intact Medical Decision & Procedures ER Provider Diagnostic Interpretation: Radiology results as stated below per my review and radiologist interpretation: CHEST ONE VIEW PORTABLE HISTORY: Shortness of breath. COMPARISON: Chest 10/27/2017. FINDINGS: The heart remains enlarged. Cardiac valve prosthesis is again noted. No pneumothorax. Diffuse interstitial and vascular thickening persists. Suspect trace bilateral pleural effusions. Small focal area of lung herniation within the right lateral chest remains unchanged. IMPRESSION: Cardiomegaly with interstitial thickening which favors pulmonary edema on the background of chronic interstitial change. Electronically signed by: Tato Costa M.D. 10/29/2017 9:02 AM Dictated Date/Time: 10/29/2017 8:58 AM Laboratory Results 10/29/17 08:49 Red Blood Count 3.61, Mean Corpuscular Volume 90.0, Mean Corpuscular Hemoglobin 29.9, Mean Corpuscular Hemoglobin Concent 33.2, Mean Platelet Volume 9.2, Neutrophils (%) (Auto) 81.6, Lymphocytes (%) (Auto) 7.0, Monocytes (%) (Auto) 8.8, Eosinophils (%) (Auto) 2.2, Basophils (%) (Auto) 0.2, Neutrophils # (Auto) 7.28, Lymphocytes # (Auto) 0.63, Monocytes # (Auto) 0.79, Eosinophils # (Auto) 0.20, Basophils # (Auto) 0.02 10/29/17 08:49 Test 10/29/17 08:40 10/29/17 08:49 Influenza Type A Antigen Neg for Influ A (NEG) Influenza Type B Antigen Neg for Influ B (NEG) White Blood Count 8.94 K/uL (4.8-10.8) Red Blood Count 3.61 M/uL (4.2-5.4) Hemoglobin 10.8 g/dL (12.0-16.0) Hematocrit 32.5 % (37-47) Mean Corpuscular Volume 90.0 fL (80-100) Mean Corpuscular Hemoglobin 29.9 pg (25-34) Mean Corpuscular Hemoglobin Concent 33.2 g/dl (32-36) Platelet Count 244 K/uL (130-400) Mean Platelet Volume 9.2 fL (7.4-10.4) Neutrophils (%) (Auto) 81.6 % Lymphocytes (%) (Auto) 7.0 % Monocytes (%) (Auto) 8.8 % Eosinophils (%) (Auto) 2.2 % Basophils (%) (Auto) 0.2 % Neutrophils # (Auto) 7.28 K/uL (1.4-6.5) Lymphocytes # (Auto) 0.63 K/uL (1.2-3.4) Monocytes # (Auto) 0.79 K/uL (0.11-0.59) Eosinophils # (Auto) 0.20 K/uL (0-0.5) Basophils # (Auto) 0.02 K/uL (0-0.2) RDW Standard Deviation 47.3 fL (36.4-46.3) RDW Coefficient of Variation 14.2 % (11.5-14.5) Immature Granulocyte % (Auto) 0.2 % Immature Granulocyte # (Auto) 0.02 K/uL (0.00-0.02) Prothrombin Time 32.5 SECONDS (9.0-12.0) Prothromb Time International Ratio 3.2 (0.9-1.1) Anion Gap 8.0 mmol/L (3-11) Est Creatinine Clear Calc Drug Dose 63.8 ml/min Estimated GFR () 67.2 Estimated GFR (Non- 57.9 BUN/Creatinine Ratio 15.0 (10-20) Calcium Level 9.2 mg/dl (8.5-10.1) Total Bilirubin 0.4 mg/dl (0.2-1) Aspartate Amino Transf (AST/SGOT) 24 U/L (15-37) Alanine Aminotransferase (ALT/SGPT) 38 U/L (12-78) Alkaline Phosphatase 74 U/L (45-117) Total Creatine Kinase 143 U/L (26-192) Creatine Kinase MB 1.9 ng/ml (0.5-3.6) Creatine Kinase MB Ratio 1.3 (0-3.0) Troponin I < 0.015 ng/ml (0-0.045) Total Protein 7.0 gm/dl (6.4-8.2) Albumin 2.8 gm/dl (3.4-5.0) Globulin 4.2 gm/dl (2.5-4.0) Albumin/Globulin Ratio 0.7 (0.9-2) Corn Level < 0.2 mMOL/L (0.6-1.2) Labs reviewed by ED physician. Medications Administered Medications (Trade) Dose Ordered Sig/Artemio Route Start Time Stop Time Status Last Admin Dose Admin Levalbuterol (Xopenex 1.25MG/ 0.5ML Neb) 1.25 mg NOW STAT INH 10/29/17 08:33 10/29/17 08:34 DC 10/29/17 08:49 1.25 MG Methylprednisolone Sodium Succinate (Solu-Medrol IV) 60 mg NOW STAT IV 10/29/17 08:33 10/29/17 08:34 DC 10/29/17 08:49 60 MG Magnesium Sulfate (Magnesium Sulfate) 1 gm NOW STAT IV 10/29/17 08:33 10/29/17 08:35 DC 10/29/17 08:49 1 GM Furosemide (Lasix Inj) 40 mg NOW STAT IV 10/29/17 09:39 10/29/17 09:40 DC 10/29/17 10:38 40 MG ECG Indication: SOB/dyspnea Rate (beats per minute): 95 Rhythm: normal sinus Findings: RBBB, T-wave inversion (Lateral) Change: Patient's electrocardiogram per my interpretation. ED Course 826: Past medical records reviewed. The patient was evaluated in room B2. A complete history and physical examination was performed. 0833: Ordered Magnesium Sulfate 1 gm IV, Solu-Medrol IV 60 mg IV, Levalbuterol 1.25 mg INH. 0939: Ordered Lasix 40 mg IV. 1012: Upon reexamination the patient is resting in bed. I discussed results and treatment plan with the patient. She verbalizes agreement and understanding. The patient is ready for discharge. Medical Decision Differential diagnosis: Etiologies such as infections, reactive airway disease, pneumonia, pneumothorax , COPD, CHF, cardiac ischemia, pulmonary embolism, musculoskeletal, gastrointestinal, as well as others were entertained. This is a 62-year-old female who presents emergency department complaining of shortness of breath. I will note that the patient has a history of COPD however she is on 3 L of oxygen at home which is what she is on here. She is not hypoxic here and does not appear to be in any respiratory distress. She was given an hour-long breathing treatment here in the emergency department and given a morning dose of Lasix. Chest x-ray does not show any evidence of pneumonia. There is slight congestion on the x-ray therefore beach patient was given her Lasix. I do believe that this patient is well enough to be discharged home for follow-up with her primary care physician. Patient and were in agreement with the treatment plan Medication Reconcilliation Current Medication List: was personally reviewed by me Blood Pressure Screening Patient's blood pressure: Normal blood pressure Impression Primary Impression: Anemia Additional Impressions: HTN (hypertension) COPD with exacerbation Scribe Attestation The scribe's documentation has been prepared under my direction and personally reviewed by me in its entirety. I confirm that the note above accurately reflects all work, treatment, procedures, and medical decision making performed by me. Departure Information Dispostion Home / Self-Care Referrals Manoj Goins D.O. (PCP) Forms HOME CARE DOCUMENTATION FORM, IMPORTANT VISIT INFORMATION, WORK / SCHOOL INSTRUCTIONS Patient Instructions My [facility] [employer] Additional Instructions Use inhaler twice every 6 hours You have been examined and treated today on an emergency basis only. This is not a substitute for, or an effort to provide, complete comprehensive medical care. It is impossible to recognize and treat all injuries or illnesses in a single emergency department visit. It is therefore important that you follow up closely with Dr Goins. Call as soon as possible for an appointment. Thank you for your time and consideration. I look forward to speaking with you again soon. Please don't hesitate to call us if you have any questions. Problem Qualifiers Primary Impression: Anemia Anemia type: unspecified type Qualified Codes: D64.9 - Anemia, unspecified Additional Impressions: HTN (hypertension) Hypertension type: unspecified Qualified Codes: I10 - Essential (primary) hypertension
--- NOTE | 2017-10-29 09:03 | DIAGNOSTIC IMAGING REPORT ---
CHEST ONE VIEW PORTABLE HISTORY: Shortness of breath. COMPARISON: Chest 10/27/2017. FINDINGS: The heart remains enlarged. Cardiac valve prosthesis is again noted. No pneumothorax. Diffuse interstitial and vascular thickening persists. Suspect trace bilateral pleural effusions. Small focal area of lung herniation within the right lateral chest remains unchanged. IMPRESSION: Cardiomegaly with interstitial thickening which favors pulmonary edema on the background of chronic interstitial change. Electronically signed by: Tato Costa M.D. 10/29/2017 9:02 AM Dictated Date/Time: 10/29/2017 8:58 AM
[2017-10-29 09:05] LABS: BASO % 0.2 %; BASO ABS # 0.02 K/uL (0-0.2); EOS % 2.2 %; HEMATOCRIT 32.5 % (37-47); HEMOGLOBIN 10.8 g/dL (12.0-16.0); IG# 0.02 K/uL (0.00-0.02); LYMPH ABS # 0.63 K/uL (1.2-3.4); MEAN CORPUSCULAR HEMOGLOBIN 29.9 pg (25-34); MEAN CORPUSCULAR HGB CONC 33.2 g/dl (32-36); MEAN PLATELET VOLUME 9.2 fL (7.4-10.4); MONO % 8.8 %; MONO ABS # 0.79 K/uL (0.11-0.59); NEUT % 81.6 %; NEUT ABS # 7.28 K/uL (1.4-6.5); PLATELET COUNT 244 K/uL (130-400); RED CELL DISTRIBUTION WIDTH CV 14.2 % (11.5-14.5); RED CELL DISTRIBUTION WIDTH SD 47.3 fL (36.4-46.3); WHITE BLOOD COUNT 8.94 K/uL (4.8-10.8)
[2017-10-29 09:28] LABS: ALBUMIN 2.8 gm/dl (3.4-5.0); ALT/SGPT 38 U/L (12-78); BLOOD UREA NITROGEN 16 mg/dl (7-18); CALCIUM 9.2 mg/dl (8.5-10.1); CARBON DIOXIDE 29 mmol/L (21-32); CREATININE 1.04 mg/dl (0.60-1.20); GLUCOSE 210 mg/dl (70-99); POTASSIUM 3.9 mmol/L (3.5-5.1); SODIUM 140 mmol/L (136-145)
[2017-10-29 09:33] LABS: ALKALINE PHOSPHATASE 74 U/L (45-117); AST/SGOT 24 U/L (15-37); CKMB 1.9 ng/ml (0.5-3.6)
[2017-10-29] MEDS ORDERED: FUROSEMIDE 40 MG/4 ML VIAL IV STA (09:39)
[2017-10-29 10:03] LABS: INR 3.2 (0.9-1.1)
[2017-10-29 10:11] VITALS: BP 156/70
[2017-10-29 10:27] VITALS: PULSE 89; O2SAT 95
[2017-10-29 12:51] LABS: INFLUENZA B ANTIGEN Neg for Influ B (NEG)
== END 2017-10-29 10:46 | disposition home or self-care (01) ==
LOC: EDBD 08:22 → C.EDB 08:24
DX: D64.9 Anemia, unspecified (principal); I10 Essential (primary) hypertension; J44.9 Chronic obstructive pulmonary disease, unspecified; J45.909 Unspecified asthma, uncomplicated; I48.91 Unspecified atrial fibrillation; F31.9 Bipolar disorder, unspecified; I50.9 Heart failure, unspecified; F32.9 Major depressive disorder, single episode, unspecified; E11.9 Type 2 diabetes mellitus without complications; K21.9 Gastro-esophageal reflux disease without esophagitis; E87.6 Hypokalemia; E03.9 Hypothyroidism, unspecified; G47.33 Obstructive sleep apnea (adult) (pediatric); I48.0 Paroxysmal atrial fibrillation; Z83.3 Family history of diabetes mellitus; Z82.49 Family history of ischemic heart disease and other diseases of the circulatory system; F17.200 Nicotine dependence, unspecified, uncomplicated; Z79.4 Long term (current) use of insulin; Z79.01 Long term (current) use of anticoagulants; Z51.81 Encounter for therapeutic drug level monitoring

== ENCOUNTER 2017-11-16 12:36 | Emergency (ER) | payer OTHER ==
[~2017-11-16] VITALS: Ht 162.6 cm; Wt 91.0 kg
[2017-11-16 12:41] VITALS: TEMP 36.4; Ht 162.6 cm; Wt 91.0 kg
[2017-11-16 12:54] VITALS: O2SAT 95
[2017-11-16] MEDS ORDERED: OXYCODONE/ACETAMINOPHEN 5-325 TAB PO ONE (13:15)
--- NOTE | 2017-11-16 13:27 | EMERGENCY ROOM VISIT NOTE ---
History Report prepared by [place]: Duncan Oviedo Under the Supervision of: Dr. Rich Ayala M.D. First contact with patient: 12:47 Chief Complaint: FALL Stated Complaint: FALL, L ARM, R NECK/SHOULDER PAIN History of Present Illness The patient is a 62 year old female who presents to the Emergency Room with complaints of constant right neck, right shoulder, and left wrist pain that began at 0030. She rates her discomfort as a 9/10 in severity. The patient states that she fell out of bed at 0030 and hit her right shoulder and head on her night stand. She reports that she is unsure why she fell. The patient reports that since the incident, she has been experience right neck and shoulder pain and left wrist pain. She also reports that she has a lump on the right posterior aspect of her head. She states she went back to bed because she believed the pain would resolve. The patient reports that her pain continued throughout the day, which caused her to report to the ED. She states she is currently experiencing nausea. The patient denies fevers, chills, cough, congestion, vomiting, hip pain, new back pain, and flu symptoms. She reports a history of mitral valve repair which she takes Coumadin for, COPD which she uses oxygen for, and heart failure. Source of History: patient Onset: 0030 Position: neck, shoulder (right), wrist (left) Symptom Intensity: 9/10 Timing: constant Associated Symptoms: + nausea, No fevers, No cough, No vomiting Review of Systems See HPI for pertinent positives and negatives. A total of ten systems were reviewed and were otherwise negative. Past Medical & Surgical Medical Problems: (1) Acute electrocardiogram changes (2) Asthma (3) Atrial fibrillation (4) Bipolar disorder (5) C. difficile colitis (6) CHF (congestive heart failure) (7) Chronic abdominal pain (8) Chronic cor pulmonale (9) Chronic pain (10) Chronic respiratory failure (11) COPD with exacerbation (12) COPD, severe (13) Cor pulmonale (chronic) (14) Depression (15) DM type 2 (diabetes mellitus, type 2) (16) DVT (deep venous thrombosis) (17) Gastroparesis (18) GERD (gastroesophageal reflux disease) (19) History of ear infection (20) HTN (hypertension) (21) Hypokalemia (22) Hypothyroidism (23) Oretta toxicity (24) DARIUS on CPAP (25) Osteoarthritis (26) PAF (paroxysmal atrial fibrillation) (27) Pneumonia Surgical Problems: (1) H/O: hysterectomy (2) Hx of appendectomy (3) Hx of cholecystectomy (4) Hx of lumpectomy (5) Hx of mitral valve repair (6) Hx of tubal ligation (7) Hx of umbilical hernia repair Family History Diabetes mellitus MOTHER FH: Crohn's disease SISTER Hypertension MOTHER Social History Smoking Status: Current Every Day Smoker Alcohol Use: none Drug Use: none Marital Status: Housing Status: lives with significant other Occupation Status: disabled Current/Historical Medications Scheduled Amitriptyline HCl (Amitriptyline HCl), 50 MG PO HS Amlodipine Besylate (Amlodipine Besylate), 10 MG PO QAM Atorvastatin (Lipitor), 40 MG PO HS Calcitriol (Calcitriol), 0.5 MCG PO 3XWK Cetirizine (Zyrtec), 10 MG PO QAM Cholecalciferol (Vitamin D3), 1,000 UNITS PO QAM Docusate Sodium (Docusate Sodium), 1 CAP PO AFTERNOON Fentanyl (Duragesic), 50 MCG TOP [id number] Fluticasone Prop/Salmeterol (Advair Diskus 250/50 60 Dose), 1 PUFF INH BID Furosemide (Lasix), 20 MG PO BID Gabapentin (Gabapentin), 800 MG PO TID Home O2 Therapy (Oxygen), 3 LITERS NA CONTINOUS Insulin Glargine (Lantus Solostar), 16 UNITS SC BID Levothyroxine Sodium (Synthroid), 50 MCG PO QAM Methocarbamol (Methocarbamol), 750 MG PO TID Metoclopramide Hcl (Reglan), 5 MG PO TIDM Metolazone (Metolazone), 2.5 MG PO UD Metoprolol Tartrate (Lopressor) (Lopressor), 100 MG PO BID Multiple Vitamin (Multivitamin), 1 TAB PO QAM Olanzapine (Olanzapine), 2.5 MG PO HS Pantoprazole (Protonix), 40 MG PO QAM Potassium Chloride (Micro-K Ext Rel), 10 MEQ PO BID Spironolactone (Aldactone), 12.5 MG PO QAM Tiotropium [place] (Spiriva Handihaler), 1 CAP INH QAM Trazodone Hcl (Desyrel), 200 TAB PO HS Venlafaxine Hcl (Effexor Extended Rel), 225 MG PO QAM Warfarin Sod (Jantoven), 5 MG PO 2XWK Warfarin Sodium (Warfarin Sodium), 7.5 MG PO UD Scheduled PRN Epinephrine (Epipen), 0.3 MG IM UD PRN for ALLERGIC REACTION Ipratropium [place] (Ipratropium [place]), 1 VIAL NEB Q6H PRN for Shortness of Breath Levalbuterol Hcl (Levalbuterol Hcl), 1.25 MG NEB Q6H PRN for SOB/Wheezing Lorazepam (Lorazepam), 0.5 MG PO UD PRN for Anxiety/Agitation Oxycodone HCl (Oxycodone HCl), 5 MG PO QID PRN for Pain Allergies Coded Allergies: BEE STING (Verified Allergy, Severe, SWELLING, 11/16/17) Lisinopril (Verified Allergy, Intermediate, FACE SWELLING, 11/16/17) Potato (Verified Allergy, Intermediate, BBQ chips - facial swelling, ) Metronidazole (Verified Allergy, Mild, FACE SWELLING, 11/16/17) [place] (Verified Allergy, Mild, HIVES, 11/16/17) Alprazolam (Verified Allergy, Unknown, RED FACE, FACE SWELLING, 11/16/17) Lactose (Verified Adverse Reaction, Intermediate, VOMTING DIARRHEA ABDOMINAL PAIN, 11/16/17) Prednisone (Verified Adverse Reaction, Mild, unknown, 11/16/17) Colesevelam (Verified Adverse Reaction, Unknown, unknown, 11/16/17) Oretta (Verified Adverse Reaction, Unknown, jitters, 11/16/17) Physical Exam Vital Signs Date Time Temp Pulse Resp B/P (MAP) Pulse Ox O2 Delivery O2 Flow Rate FiO2 11/16/17 15:33 73 18 134/68 98 Room Air 11/16/17 14:47 58 18 118/48 96 Nasal Cannula 2.0 11/16/17 12:55 68 11/16/17 12:54 95 Nasal Cannula 3.0 11/16/17 12:54 95 Nasal Cannula 3.0 11/16/17 12:41 36.4 70 18 143/76 89 Nasal Cannula 3.0 Physical Exam GENERAL: Awake, alert, chronically ill appearing, in no distress HENT: Normocephalic, atraumatic. Dry mucous membranes EYES: Normal conjunctiva. Sclera non-icteric. NECK: Supple. No nuchal rigidity. FROM. No JVD. RESPIRATORY: Clear to auscultation. CARDIAC: Regular rate, normal rhythm. End-systolic click c/w mechanical heart valve. Extremities warm and well perfused. Pulses equal. ABDOMEN: Soft, non-distended. No tenderness to palpation. No rebound or guarding. No masses. RECTAL: Deferred. MUSCULOSKELETAL: Chest examination reveals no tenderness. The back is symmetrical on inspection without obvious abnormality. Mild tenderness to the C, T,L spine. No step offs. Right scapula and right AC joint tenderness as well as lateral humerus. Mild tenderness to the radial aspect of the left wrist. There is no CVA tenderness to palpation. No joint edema. LOWER EXTREMITIES: Calves are equal size bilaterally and non-tender. No edema. No discoloration. NEURO: Normal sensorium. No sensory or motor deficits noted. SKIN: No rash or jaundice noted. Medical Decision & Procedures ER Provider Diagnostic Interpretation: Radiology results as stated below per my review and radiologist interpretation: CT SCAN OF THE BRAIN WITHOUT IV CONTRAST CLINICAL HISTORY: Fall. Coumadinized patient. COMPARISON STUDY: CT scan of the brain dated 07/17/2016 TECHNIQUE: Unenhanced axial CT scan of the brain is performed from the vertex to the skull base. A dose lowering protocol was utilized adhering to the principles of ALARA. FINDINGS: Brain parenchyma: There are age-related involutional changes noting mild subcortical and periventricular microangiopathic change. There is bifrontal encephalomalacia consistent with remote infarcts. This is similar to prior studies. There is no hemorrhage, mass effect, or evidence of acute territorial ischemia by CT criteria. Dickey-white matter is preserved. No extra-axial fluid collection is seen. Ventricles, sulci, cisterns: Prominent secondary to involutional change. Intracranial vascular: There is atherosclerotic calcification of the cavernous carotid and vertebral arteries. Calvarium: There is no depressed calvarial fracture. Sinuses and mastoids: The visualized paranasal sinuses are clear. The mastoid air cells are well pneumatized. Orbits: The bony orbits are grossly intact. There are bilateral ocular lens implants. IMPRESSION: Senescent changes and remote infarcts as above. There is no hemorrhage, mass effect, or evidence of acute territorial ischemia by CT criteria. Electronically signed by: Jame Batres M.D. 11/16/2017 1:45 PM Dictated Date/Time: 11/16/2017 1:[address] SCAN OF THE THORACIC SPINE WITHOUT IV CONTRAST CLINICAL HISTORY: Fall with thoracic back pain. COMPARISON STUDY: CT scan of the thoracic spine dated 01/12/2014. TECHNIQUE: CT scan of the thoracic spine is performed from the lower cervical spine to the upper lumbar spine. Images are reviewed in the axial, sagittal, and coronal planes. IV contrast was not administered for this examination. A dose lowering technique was utilized adhering to the principles of ALARA. FINDINGS: The skeletal structures are osteopenic. There is no evidence of fracture or malalignment involving the thoracic spine. No lytic or blastic lesion is seen. The transverse and spinous processes are intact. Tiny anterior osteophytes are seen throughout. The disc spaces appear preserved. There is no evidence of large disc herniation. The paraspinous soft tissues are normal as visualized. Emphysematous change is noted in the visualized lung parenchyma. Bibasilar atelectasis is observed. Adrenal adenomas are partially visualized. IMPRESSION: There is no evidence of fracture or malalignment involving the thoracic spine. Electronically signed by: Jame Batres M.D. 11/16/2017 2:12 PM Dictated Date/Time: 11/16/2017 2:[address] SCAN OF THE LUMBAR SPINE WITHOUT IV CONTRAST CLINICAL HISTORY: Fall. Low back pain. COMPARISON STUDY: CT scan of the lumbar spine dated 01/12/2014. Lumbar spine radiographs dated 01/09/2015. TECHNIQUE: CT scan of the lumbar spine is performed from the lower thoracic spine to the sacrum. Images are reviewed in the axial, sagittal, and coronal planes. IV contrast was not administered for this examination. A dose lowering technique was utilized adhering to the principles of ALARA. FINDINGS: The skeletal structures are osteopenic. There is no evidence of fracture or malalignment involving the lumbar spine. Vertebral body height and alignment are maintained. The transverse and spinous processes are intact. There is no evidence of spondylolysis. No lytic or blastic lesion is seen. Tiny anterior osteophytes are seen throughout. The disc spaces are preserved. There is no evidence of a large disc herniation by CT. Degenerative endplate sclerosis is noted at L4-L5 and L5-S1. The visualized sacrum and bony pelvis appear intact. The paraspinous soft tissues are within normal limits. There is moderate to advanced atherosclerotic calcification of the abdominal aorta which is normal in caliber. A left adrenal adenoma is partially visualized. IMPRESSION: 1. There is no evidence of fracture or malalignment involving the lumbar spine. 2. Osteopenia and mild degenerative change as above. Dictated: 11/16/2017 2:04 PM Transcribed: 11/16/2017 2:46 PM Alessio Electronically signed by: Jame Batres M.D. 11/16/2017 2:47 PM Dictated Date/Time: 11/16/2017 2:[address] SCAN OF THE CHEST WITHOUT IV CONTRAST CLINICAL HISTORY: Fall. Right shoulder pain. Chest wall pain. COMPARISON STUDY: Chest CT dated 07/04/1715. Chest x-ray dated 10/29/2017. TECHNIQUE: CT scan of the thorax was performed from the thoracic inlet to the upper abdomen. Images are reviewed in the axial, sagittal, and coronal planes. IV contrast was not administered for this examination as per the referring clinician. A dose lowering technique was utilized adhering to the principles of ALARA. The examination is degraded by motion artifact, as well as by streak artifact from the arms which could not be elevated above the chest. FINDINGS: Thyroid: Imaged portions of the thyroid gland are normal in size and attenuation. 11 mm low-attenuation nodule is identified in the right lobe. Thoracic aorta: There is atherosclerotic calcification of the thoracic aorta, which is normal in caliber and demonstrates standard 3-vessel arch anatomy. Heart: The heart is enlarged and without pericardial effusion. There is evidence of previous mitral valve surgery. There are coronary artery calcifications. Lungs and pleural spaces: Evaluation of the lung parenchyma is modestly degraded by motion artifact. Moderate emphysematous change is identified. No airspace consolidation or pleural effusion is seen. There is no pneumothorax. Minimal secretions are present in the trachea. There is an 8 mm pleural-based nodule in the lingula seen on axial image #126. A 3 mm right middle lobe pulmonary nodule is seen on image #165. These are unchanged from 07/11/2015. No new pulmonary lesion is Identified. Mediastinum: There is mediastinal lymphadenopathy. A precarinal node on image #109 measures 1.6 cm in short axis. Felisha: Not well assessed without IV contrast. Axillae: There is no axillary lymphadenopathy. Upper abdomen: The visualized kidneys demonstrate cortical atrophy. Subcentimeter cortical hypodensities likely represent cysts but are too small for definitive characterization. Bilateral extrarenal pelvises are somewhat a previous. Cholecystectomy clips are noted. There is a tiny hiatal hernia. A 3 cm left adrenal adenoma is identified. Additional subcentimeter adenomas are present both adrenal glands. These are unchanged from previous. Skeletal structures: The skeletal structures are osteopenic. The bony thorax appears intact. Mild degenerative change and scoliosis are noted in the thoracic spine. No lytic or blastic bony lesions are seen. IMPRESSION: 1. Streak and motion compromised examination. 2. There is no acute posttraumatic intrathoracic abnormality. 3. Cardiomegaly and emphysema. 4. No airspace consolidation, pleural effusion, or pneumothorax is identified. 5. There is an 11 mm low-attenuation nodule in the right thyroid lobe. Follow-up with a nonemergent thyroid ultrasound is recommended. 6. There are 2 pulmonary nodules identified measuring up to 8 mm. These have not significant changed from 07/11/2015 and are of low suspicion. No new pulmonary lesion is seen. Electronically signed by: Jame Batres M.D. 11/16/2017 2:02 PM Dictated Date/Time: 11/16/2017 1:[address] SCAN OF THE CERVICAL SPINE CLINICAL HISTORY: Fall with neck pain. COMPARISON STUDY: CT scan of the cervical spine dated 06/23/2015. TECHNIQUE: CT scan of the cervical spine is performed from the skull base to the upper thoracic spine. Images are reviewed in the axial, sagittal, and coronal planes. IV contrast was not administered for this examination. A dose lowering technique was utilized adhering to the principles of ALARA. CT DOSE: 3219.23 mGy.cm FINDINGS: Skeletal structures: The skeletal structures are osteopenic. There is no evidence of fracture or subluxation involving the cervical spine. Vertebral body height and alignment are maintained. There is straightening of the cervical lordosis. The odontoid process and lateral masses are intact. The atlantoaxial articulation is preserved. The spinous processes appear intact. Intervertebral discs: The disc spaces are well maintained. Central canal: Grossly patent. Soft tissues: The prevertebral and paraspinous soft tissues are within normal limits. Atherosclerotic calcification is noted in the carotid bulbs. A low-attenuation nodule in the right thyroid lobe measures 11 mm. Calvarium: The visualized calvarium at the skull base appears intact. Brain parenchyma: Partially visualized brain parenchyma the skull base is within normal limits. Sinuses and mastoids: The visualized paranasal sinuses are clear. There is a small right mastoid effusion. The left mastoid air cells are well pneumatized. Lung apices: Emphysematous changes noted at the apices. Apical lung parenchyma is clear as visualized. IMPRESSION: There is no evidence of fracture or subluxation involving the cervical spine. Electronically signed by: Jame Batres M.D. 11/16/2017 1:49 PM Dictated Date/Time: 11/16/2017 1:46 PM LEFT WRIST 4 VIEWS CLINICAL HISTORY: Fall with left arm pain. FINDINGS: 4 views of the left wrist are obtained. No prior studies are available for comparison at the time of dictation. The skeletal structures are osteopenic. No fracture is seen. The joint spaces of the wrist appear maintained. Mild soft tissue swelling is noted. There is atherosclerotic calcification of the regional arteries. IMPRESSION: Osteopenia with no radiographic evidence of left wrist fracture. Electronically signed by: Jame Batres M.D. 11/16/2017 2:36 PM Dictated Date/Time: 11/16/2017 2:33 PM RIGHT SHOULDER 4 VIEWS; RIGHT HUMERUS 2 VIEWS CLINICAL HISTORY: Fall with right arm pain. FINDINGS: 4 views of the right shoulder with AP and lateral views of the right humerus are obtained. Correlation is made with chest CT performed the same day 11/16/2017. The skeletal structures are osteopenic. There is no radiographic evidence of fracture or dislocation in the right shoulder. There is no radiographic evidence of right humeral fracture. The glenohumeral and acromioclavicular joints are preserved. The elbow joint is grossly maintained. The overlying soft tissues are within normal limits. Surgical clips are noted in the right axillary region. The visualized right lung parenchyma appears clear. IMPRESSION: 1. There is no radiographic evidence of right shoulder fracture or dislocation. 2. There is no radiographic evidence of right humeral fracture. Electronically signed by: Jame Batres M.D. 11/16/2017 2:37 PM Dictated Date/Time: 11/16/2017 2:36 PM RIGHT SHOULDER 4 VIEWS; RIGHT HUMERUS 2 VIEWS CLINICAL HISTORY: Fall with right arm pain. FINDINGS: 4 views of the right shoulder with AP and lateral views of the right humerus are obtained. Correlation is made with chest CT performed the same day 11/16/2017. The skeletal structures are osteopenic. There is no radiographic evidence of fracture or dislocation in the right shoulder. There is no radiographic evidence of right humeral fracture. The glenohumeral and acromioclavicular joints are preserved. The elbow joint is grossly maintained. The overlying soft tissues are within normal limits. Surgical clips are noted in the right axillary region. The visualized right lung parenchyma appears clear. IMPRESSION: 1. There is no radiographic evidence of right shoulder fracture or dislocation. 2. There is no radiographic evidence of right humeral fracture. Electronically signed by: Jame Batres M.D. 11/16/2017 2:37 PM Dictated Date/Time: 11/16/2017 2:36 PM Laboratory Results 11/16/17 13:52 Red Blood Count 3.90, Mean Corpuscular Volume 87.7, Mean Corpuscular Hemoglobin 29.7, Mean Corpuscular Hemoglobin Concent 33.9, Mean Platelet Volume 9.0, Neutrophils (%) (Auto) 64.3, Lymphocytes (%) (Auto) 25.0, Monocytes (%) (Auto) 8.5, Eosinophils (%) (Auto) 1.7, Basophils (%) (Auto) 0.4, Neutrophils # (Auto) 4.56, Lymphocytes # (Auto) 1.77, Monocytes # (Auto) 0.60, Eosinophils # (Auto) 0.12, Basophils # (Auto) 0.03 11/16/17 13:52 Test 11/16/17 13:52 White Blood Count 7.09 K/uL (4.8-10.8) Red Blood Count 3.90 M/uL (4.2-5.4) Hemoglobin 11.6 g/dL (12.0-16.0) Hematocrit 34.2 % (37-47) Mean Corpuscular Volume 87.7 fL (80-100) Mean Corpuscular Hemoglobin 29.7 pg (25-34) Mean Corpuscular Hemoglobin Concent 33.9 g/dl (32-36) Platelet Count 328 K/uL (130-400) Mean Platelet Volume 9.0 fL (7.4-10.4) Neutrophils (%) (Auto) 64.3 % Lymphocytes (%) (Auto) 25.0 % Monocytes (%) (Auto) 8.5 % Eosinophils (%) (Auto) 1.7 % Basophils (%) (Auto) 0.4 % Neutrophils # (Auto) 4.56 K/uL (1.4-6.5) Lymphocytes # (Auto) 1.77 K/uL (1.2-3.4) Monocytes # (Auto) 0.60 K/uL (0.11-0.59) Eosinophils # (Auto) 0.12 K/uL (0-0.5) Basophils # (Auto) 0.03 K/uL (0-0.2) RDW Standard Deviation 45.7 fL (36.4-46.3) RDW Coefficient of Variation 14.2 % (11.5-14.5) Immature Granulocyte % (Auto) 0.1 % Immature Granulocyte # (Auto) 0.01 K/uL (0.00-0.02) Anion Gap 2.0 mmol/L (3-11) Est Creatinine Clear Calc Drug Dose 59.8 ml/min Estimated GFR () 64.2 Estimated GFR (Non- 55.4 BUN/Creatinine Ratio 18.7 (10-20) Calcium Level 9.4 mg/dl (8.5-10.1) Total Bilirubin 0.2 mg/dl (0.2-1) Direct Bilirubin < 0.1 mg/dl (0-0.2) Aspartate Amino Transf (AST/SGOT) 25 U/L (15-37) Alanine Aminotransferase (ALT/SGPT) 34 U/L (12-78) Alkaline Phosphatase 77 U/L (45-117) Total Protein 6.7 gm/dl (6.4-8.2) Albumin 2.9 gm/dl (3.4-5.0) Lipase 133 U/L (73-393) Laboratory results reviewed by me Medications Administered Medications (Trade) Dose Ordered Sig/Artemio Route Start Time Stop Time Status Last Admin Dose Admin Oxycodone/ Acetaminophen (Percocet 5-325mg Tab) 1 tab NOW ONCE PO 11/16/17 13:15 11/16/17 13:16 DC 11/16/17 13:18 1 TAB Oxycodone/ Acetaminophen (Percocet 5-325mg Tab) 2 tab NOW STAT PO 11/16/17 15:50 11/16/17 15:52 DC 11/16/17 16:06 2 TAB ECG Per My Interpretation Indication: weakness Rate (beats per minute): 65 Rhythm: normal sinus Findings: RBBB, no acute ischemic change Comparison ECG Date: 10/29/17 Change: no significant change ED Course 1254: The patient was evaluated in room C08. A complete history and physical exam was performed. 1522: I reevaluated the patient. Discussed results and discharge instructions: She verbalized understanding and agreement. The patient is ready for discharge. Medical Decision I reviewed the patient's past medical history, medications, and the nursing notes as described above. The patient's presentation and history were concerning for etiologies such as fracture, dislocation, intra-abdominal, pneumothorax, intrathoracic , intracranial, neurologic, as well as other traumatic pathologies were entertained. The patient is a 62-year-old woman with a past medical history of mechanical heart valve on Coumadin presents emergency department after rolling out of bed and hitting her head as well as shoulder at 4 AM this morning per hpi. While the patient is no acute distress, afebrile stable vital signs. She has mild tenderness to the right scapula, AC joint, and lateral right humerus. Mild tenderness to the radial aspect of the left wrist. She has chronic tenderness throughout the CTL spine which is unchanged it makes the patient's exam difficult in this acute setting. No step-offs. Neuro intact. No evidence of external trauma including hematomas or ecchymosis. The patient CT head, chest, CTL-spine negative for acute findings. Labs unremarkable including POC INR 2.3. Patient's pain likely 2/2 muscle strain. Findings and plan for follow-up reviewed with patient. Patient agreeable and d/c'd per discharge instructions. Medication Reconcilliation Current Medication List: was personally reviewed by me Blood Pressure Screening Patient's blood pressure: Normal blood pressure Impression Primary Impression: Fall Additional Impressions: Shoulder pain, right Wrist pain Scribe Attestation The scribe's documentation has been prepared under my direction and personally reviewed by me in its entirety. I confirm that the note above accurately reflects all work, treatment, procedures, and medical decision making performed by me. Departure Information Dispostion Home / Self-Care Referrals Manoj Goins D.OElen (PCP) Patient Instructions ED Mechanical Fall, ED Shoulder Pain [facility], ED Sprain Wrist, My [facility] Additional Instructions Please follow up with your primary care physician in the next 1-3 days for re- evaluation. You likely have a muscular strain after your fall. Otherwise, your exam, EKG, xrays, lab results, and CT scan did not show signs of an emergent condition at this time. Acetaminophen for pain as needed. Return to the emergency department for worsening symptoms as described in the accompanying instructions. Problem Qualifiers
--- NOTE | 2017-11-16 13:46 | DIAGNOSTIC IMAGING REPORT ---
CT SCAN OF THE BRAIN WITHOUT IV CONTRAST CLINICAL HISTORY: Fall. Coumadinized patient. COMPARISON STUDY: CT scan of the brain dated 07/17/2016 TECHNIQUE: Unenhanced axial CT scan of the brain is performed from the vertex to the skull base. A dose lowering protocol was utilized adhering to the principles of ALARA. FINDINGS: Brain parenchyma: There are age-related involutional changes noting mild subcortical and periventricular microangiopathic change. There is bifrontal encephalomalacia consistent with remote infarcts. This is similar to prior studies. There is no hemorrhage, mass effect, or evidence of acute territorial ischemia by CT criteria. Dickey-white matter is preserved. No extra-axial fluid collection is seen. Ventricles, sulci, cisterns: Prominent secondary to involutional change. Intracranial vascular: There is atherosclerotic calcification of the cavernous carotid and vertebral arteries. Calvarium: There is no depressed calvarial fracture. Sinuses and mastoids: The visualized paranasal sinuses are clear. The mastoid air cells are well pneumatized. Orbits: The bony orbits are grossly intact. There are bilateral ocular lens implants. IMPRESSION: Senescent changes and remote infarcts as above. There is no hemorrhage, mass effect, or evidence of acute territorial ischemia by CT criteria. Electronically signed by: Jame Batres M.D. 11/16/2017 1:45 PM Dictated Date/Time: 11/16/2017 1:42 PM
--- NOTE | 2017-11-16 13:50 | DIAGNOSTIC IMAGING REPORT ---
CT SCAN OF THE CERVICAL SPINE CLINICAL HISTORY: Fall with neck pain. COMPARISON STUDY: CT scan of the cervical spine dated 06/23/2015. TECHNIQUE: CT scan of the cervical spine is performed from the skull base to the upper thoracic spine. Images are reviewed in the axial, sagittal, and coronal planes. IV contrast was not administered for this examination. A dose lowering technique was utilized adhering to the principles of ALARA. CT DOSE: 3219.23 mGy.cm FINDINGS: Skeletal structures: The skeletal structures are osteopenic. There is no evidence of fracture or subluxation involving the cervical spine. Vertebral body height and alignment are maintained. There is straightening of the cervical lordosis. The odontoid process and lateral masses are intact. The atlantoaxial articulation is preserved. The spinous processes appear intact. Intervertebral discs: The disc spaces are well maintained. Central canal: Grossly patent. Soft tissues: The prevertebral and paraspinous soft tissues are within normal limits. Atherosclerotic calcification is noted in the carotid bulbs. A low-attenuation nodule in the right thyroid lobe measures 11 mm. Calvarium: The visualized calvarium at the skull base appears intact. Brain parenchyma: Partially visualized brain parenchyma the skull base is within normal limits. Sinuses and mastoids: The visualized paranasal sinuses are clear. There is a small right mastoid effusion. The left mastoid air cells are well pneumatized. Lung apices: Emphysematous changes noted at the apices. Apical lung parenchyma is clear as visualized. IMPRESSION: There is no evidence of fracture or subluxation involving the cervical spine. Electronically signed by: Jame Batres M.D. 11/16/2017 1:49 PM Dictated Date/Time: 11/16/2017 1:46 PM
--- NOTE | 2017-11-16 14:03 | DIAGNOSTIC IMAGING REPORT ---
CT SCAN OF THE CHEST WITHOUT IV CONTRAST CLINICAL HISTORY: Fall. Right shoulder pain. Chest wall pain. COMPARISON STUDY: Chest CT dated 07/04/1715. Chest x-ray dated 10/29/2017. TECHNIQUE: CT scan of the thorax was performed from the thoracic inlet to the upper abdomen. Images are reviewed in the axial, sagittal, and coronal planes. IV contrast was not administered for this examination as per the referring clinician. A dose lowering technique was utilized adhering to the principles of ALARA. The examination is degraded by motion artifact, as well as by streak artifact from the arms which could not be elevated above the chest. FINDINGS: Thyroid: Imaged portions of the thyroid gland are normal in size and attenuation. 11 mm low-attenuation nodule is identified in the right lobe. Thoracic aorta: There is atherosclerotic calcification of the thoracic aorta, which is normal in caliber and demonstrates standard 3-vessel arch anatomy. Heart: The heart is enlarged and without pericardial effusion. There is evidence of previous mitral valve surgery. There are coronary artery calcifications. Lungs and pleural spaces: Evaluation of the lung parenchyma is modestly degraded by motion artifact. Moderate emphysematous change is identified. No airspace consolidation or pleural effusion is seen. There is no pneumothorax. Minimal secretions are present in the trachea. There is an 8 mm pleural-based nodule in the lingula seen on axial image #126. A 3 mm right middle lobe pulmonary nodule is seen on image #165. These are unchanged from 07/11/2015. No new pulmonary lesion is Identified. Mediastinum: There is mediastinal lymphadenopathy. A precarinal node on image #109 measures 1.6 cm in short axis. Felisha: Not well assessed without IV contrast. Axillae: There is no axillary lymphadenopathy. Upper abdomen: The visualized kidneys demonstrate cortical atrophy. Subcentimeter cortical hypodensities likely represent cysts but are too small for definitive characterization. Bilateral extrarenal pelvises are somewhat a previous. Cholecystectomy clips are noted. There is a tiny hiatal hernia. A 3 cm left adrenal adenoma is identified. Additional subcentimeter adenomas are present both adrenal glands. These are unchanged from previous. Skeletal structures: The skeletal structures are osteopenic. The bony thorax appears intact. Mild degenerative change and scoliosis are noted in the thoracic spine. No lytic or blastic bony lesions are seen. IMPRESSION: 1. Streak and motion compromised examination. 2. There is no acute posttraumatic intrathoracic abnormality. 3. Cardiomegaly and emphysema. 4. No airspace consolidation, pleural effusion, or pneumothorax is identified. 5. There is an 11 mm low-attenuation nodule in the right thyroid lobe. Follow-up with a nonemergent thyroid ultrasound is recommended. 6. There are 2 pulmonary nodules identified measuring up to 8 mm. These have not significant changed from 07/11/2015 and are of low suspicion. No new pulmonary lesion is seen. Electronically signed by: Jame Batres M.D. 11/16/2017 2:02 PM Dictated Date/Time: 11/16/2017 1:51 PM
[2017-11-16 14:14] LABS: BASO % 0.4 %; BASO ABS # 0.03 K/uL (0-0.2); EOS % 1.7 %; EOS ABS # 0.12 K/uL (0-0.5); HEMATOCRIT 34.2 % (37-47); HEMOGLOBIN 11.6 g/dL (12.0-16.0); IG# 0.01 K/uL (0.00-0.02); LYMPH ABS # 1.77 K/uL (1.2-3.4); MEAN CELL VOLUME 87.7 fL (80-100); MEAN CORPUSCULAR HEMOGLOBIN 29.7 pg (25-34); MEAN CORPUSCULAR HGB CONC 33.9 g/dl (32-36); MONO % 8.5 %; NEUT % 64.3 %; NEUT ABS # 4.56 K/uL (1.4-6.5); PLATELET COUNT 328 K/uL (130-400); RED CELL DISTRIBUTION WIDTH CV 14.2 % (11.5-14.5); RED CELL DISTRIBUTION WIDTH SD 45.7 fL (36.4-46.3); WHITE BLOOD COUNT 7.09 K/uL (4.8-10.8)
--- NOTE | 2017-11-16 14:14 | DIAGNOSTIC IMAGING REPORT ---
CT SCAN OF THE THORACIC SPINE WITHOUT IV CONTRAST CLINICAL HISTORY: Fall with thoracic back pain. COMPARISON STUDY: CT scan of the thoracic spine dated 01/12/2014. TECHNIQUE: CT scan of the thoracic spine is performed from the lower cervical spine to the upper lumbar spine. Images are reviewed in the axial, sagittal, and coronal planes. IV contrast was not administered for this examination. A dose lowering technique was utilized adhering to the principles of ALARA. FINDINGS: The skeletal structures are osteopenic. There is no evidence of fracture or malalignment involving the thoracic spine. No lytic or blastic lesion is seen. The transverse and spinous processes are intact. Tiny anterior osteophytes are seen throughout. The disc spaces appear preserved. There is no evidence of large disc herniation. The paraspinous soft tissues are normal as visualized. Emphysematous change is noted in the visualized lung parenchyma. Bibasilar atelectasis is observed. Adrenal adenomas are partially visualized. IMPRESSION: There is no evidence of fracture or malalignment involving the thoracic spine. Electronically signed by: Jame Batres M.D. 11/16/2017 2:12 PM Dictated Date/Time: 11/16/2017 2:09 PM
[2017-11-16 14:23] LABS: ALBUMIN 2.9 gm/dl (3.4-5.0); ALT/SGPT 34 U/L (12-78); AST/SGOT 25 U/L (15-37); BLOOD UREA NITROGEN 20 mg/dl (7-18); CALCIUM 9.4 mg/dl (8.5-10.1); CARBON DIOXIDE 39 mmol/L (21-32); CREATININE 1.08 mg/dl (0.60-1.20); GLUCOSE 132 mg/dl (70-99); LIPASE 133 U/L (73-393); POTASSIUM 3.2 mmol/L (3.5-5.1); SODIUM 132 mmol/L (136-145)
[2017-11-16 14:26] LABS: ALKALINE PHOSPHATASE 77 U/L (45-117); TOTAL PROTEIN 6.7 gm/dl (6.4-8.2)
--- NOTE | 2017-11-16 14:37 | DIAGNOSTIC IMAGING REPORT ---
LEFT WRIST 4 VIEWS CLINICAL HISTORY: Fall with left arm pain. FINDINGS: 4 views of the left wrist are obtained. No prior studies are available for comparison at the time of dictation. The skeletal structures are osteopenic. No fracture is seen. The joint spaces of the wrist appear maintained. Mild soft tissue swelling is noted. There is atherosclerotic calcification of the regional arteries. IMPRESSION: Osteopenia with no radiographic evidence of left wrist fracture. Electronically signed by: Jame Batres M.D. 11/16/2017 2:36 PM Dictated Date/Time: 11/16/2017 2:33 PM
--- NOTE | 2017-11-16 14:39 | DIAGNOSTIC IMAGING REPORT ---
RIGHT SHOULDER 4 VIEWS; RIGHT HUMERUS 2 VIEWS CLINICAL HISTORY: Fall with right arm pain. FINDINGS: 4 views of the right shoulder with AP and lateral views of the right humerus are obtained. Correlation is made with chest CT performed the same day 11/16/2017. The skeletal structures are osteopenic. There is no radiographic evidence of fracture or dislocation in the right shoulder. There is no radiographic evidence of right humeral fracture. The glenohumeral and acromioclavicular joints are preserved. The elbow joint is grossly maintained. The overlying soft tissues are within normal limits. Surgical clips are noted in the right axillary region. The visualized right lung parenchyma appears clear. IMPRESSION: 1. There is no radiographic evidence of right shoulder fracture or dislocation. 2. There is no radiographic evidence of right humeral fracture. Electronically signed by: Jame Batres M.D. 11/16/2017 2:37 PM Dictated Date/Time: 11/16/2017 2:36 PM
--- NOTE | 2017-11-16 14:47 | DIAGNOSTIC IMAGING REPORT ---
CT SCAN OF THE LUMBAR SPINE WITHOUT IV CONTRAST CLINICAL HISTORY: Fall. Low back pain. COMPARISON STUDY: CT scan of the lumbar spine dated 01/12/2014. Lumbar spine radiographs dated 01/09/2015. TECHNIQUE: CT scan of the lumbar spine is performed from the lower thoracic spine to the sacrum. Images are reviewed in the axial, sagittal, and coronal planes. IV contrast was not administered for this examination. A dose lowering technique was utilized adhering to the principles of ALARA. FINDINGS: The skeletal structures are osteopenic. There is no evidence of fracture or malalignment involving the lumbar spine. Vertebral body height and alignment are maintained. The transverse and spinous processes are intact. There is no evidence of spondylolysis. No lytic or blastic lesion is seen. Tiny anterior osteophytes are seen throughout. The disc spaces are preserved. There is no evidence of a large disc herniation by CT. Degenerative endplate sclerosis is noted at L4-L5 and L5-S1. The visualized sacrum and bony pelvis appear intact. The paraspinous soft tissues are within normal limits. There is moderate to advanced atherosclerotic calcification of the abdominal aorta which is normal in caliber. A left adrenal adenoma is partially visualized. IMPRESSION: 1. There is no evidence of fracture or malalignment involving the lumbar spine. 2. Osteopenia and mild degenerative change as above. Dictated: 11/16/2017 2:04 PM Transcribed: 11/16/2017 2:46 PM Alessio Electronically signed by: Jame Batres M.D. 11/16/2017 2:47 PM Dictated Date/Time: 11/16/2017 2:04 PM
[2017-11-16 15:33] VITALS: BP 134/68; PULSE 73; O2SAT 98
[2017-11-16] MEDS ORDERED: OXYCODONE/ACETAMINOPHEN 5-325 TAB PO STA (15:50)
== END 2017-11-16 16:19 | disposition home or self-care (01) ==
LOC: C.EDB 12:37 → C.EDC 16:19
DX: M25.511 Pain in right shoulder (principal); M25.532 Pain in left wrist; W06.XXXA Fall from bed, initial encounter; Y92.013 Bedroom of single-family (private) house as the place of occurrence of the external cause; J44.9 Chronic obstructive pulmonary disease, unspecified; I48.91 Unspecified atrial fibrillation; I50.9 Heart failure, unspecified; E11.9 Type 2 diabetes mellitus without complications; Z86.718 Personal history of other venous thrombosis and embolism; K31.84 Gastroparesis; K21.9 Gastro-esophageal reflux disease without esophagitis; I11.0 Hypertensive heart disease with heart failure; E87.6 Hypokalemia; E03.9 Hypothyroidism, unspecified; G47.33 Obstructive sleep apnea (adult) (pediatric); M19.90 Unspecified osteoarthritis, unspecified site; Z87.01 Personal history of pneumonia (recurrent); Z83.3 Family history of diabetes mellitus; Z83.79 Family history of other diseases of the digestive system; Z82.49 Family history of ischemic heart disease and other diseases of the circulatory system; F17.210 Nicotine dependence, cigarettes, uncomplicated; Z79.4 Long term (current) use of insulin; Z79.01 Long term (current) use of anticoagulants; Z79.899 Other long term (current) drug therapy; Z91.030 Bee allergy status; Z88.8 Allergy status to other drugs, medicaments and biological substances; Z91.018 Allergy to other foods

== ENCOUNTER 2017-11-22 01:12 | Emergency (ER) | payer OTHER ==
[~2017-11-22] VITALS: Ht 162.6 cm; Wt 98.4 kg
[2017-11-22 01:19] VITALS: TEMP 36.5; Ht 162.6 cm; Wt 98.4 kg
--- NOTE | 2017-11-22 01:36 | EMERGENCY ROOM VISIT NOTE ---
History Report prepared by [place]: Conor Tran Under the Supervision of: Dr. Richar Briones M.D. First contact with patient: 01:20 Chief Complaint: NEURO SYMPTOMS Stated Complaint: GENERALIZED NUMBNESS History of Present Illness The patient is a 62 year old female who presents to the Emergency Room with complaints of generalized numbness that began prior to arrival. She states she has had multiple headaches earlier this afternoon. She states "she feels rough" . She states that her doctor started her on a new kidney function medication. She states she took her Trazodone, oxycodone (headaches), and a sleeping pill today. She denies any alcohol or drug use. Source of History: patient Onset: POWER DISTRI[employer] Position: head, other (global) Quality: ache, numbness Timing: constant Modifying Factors (Relieving): narcotics (Oxycodone for headaches) Associated Symptoms: + headache, + numbness Review of Systems See HPI for pertinent positives & negatives. A total of 10 systems reviewed and were otherwise negative. Past Medical & Surgical Medical Problems: (1) Acute electrocardiogram changes (2) Asthma (3) Atrial fibrillation (4) Bipolar disorder (5) C. difficile colitis (6) CHF (congestive heart failure) (7) Chronic abdominal pain (8) Chronic cor pulmonale (9) Chronic pain (10) Chronic respiratory failure (11) COPD with exacerbation (12) COPD, severe (13) Cor pulmonale (chronic) (14) Depression (15) DM type 2 (diabetes mellitus, type 2) (16) DVT (deep venous thrombosis) (17) Gastroparesis (18) GERD (gastroesophageal reflux disease) (19) History of ear infection (20) HTN (hypertension) (21) Hypokalemia (22) Hypothyroidism (23) [place] toxicity (24) DARIUS on CPAP (25) Osteoarthritis (26) PAF (paroxysmal atrial fibrillation) (27) Pneumonia Surgical Problems: (1) H/O: hysterectomy (2) Hx of appendectomy (3) Hx of cholecystectomy (4) Hx of lumpectomy (5) Hx of mitral valve repair (6) Hx of tubal ligation (7) Hx of umbilical hernia repair Family History Diabetes mellitus MOTHER FH: Crohn's disease SISTER Hypertension MOTHER Social History Smoking Status: Current Every Day Smoker Alcohol Use: none Drug Use: none Marital Status: Housing Status: lives with significant other Occupation Status: disabled Current/Historical Medications Scheduled Amitriptyline HCl (Amitriptyline HCl), 50 MG PO HS Amlodipine Besylate (Amlodipine Besylate), 10 MG PO QAM Atorvastatin (Lipitor), 40 MG PO HS Calcitriol (Calcitriol), 0.5 MCG PO 3XWK Cetirizine (Zyrtec), 10 MG PO QAM Cholecalciferol (Vitamin D3), 1,000 UNITS PO QAM Docusate Sodium (Docusate Sodium), 1 CAP PO AFTERNOON Fentanyl (Duragesic), 50 MCG TOP [id number] Fluticasone Prop/Salmeterol (Advair Diskus 250/50 60 Dose), 1 PUFF INH BID Furosemide (Lasix), 20 MG PO BID Gabapentin (Gabapentin), 800 MG PO TID Home O2 Therapy (Oxygen), 3 LITERS NA CONTINOUS Insulin Glargine (Lantus Solostar), 16 UNITS SC BID Levothyroxine Sodium (Synthroid), 50 MCG PO QAM Methocarbamol (Methocarbamol), 750 MG PO TID Metoclopramide Hcl (Reglan), 5 MG PO TIDM Metolazone (Metolazone), 2.5 MG PO UD Metoprolol Tartrate (Lopressor) (Lopressor), 100 MG PO BID Multiple Vitamin (Multivitamin), 1 TAB PO QAM Olanzapine (Olanzapine), 2.5 MG PO HS Pantoprazole (Protonix), 40 MG PO QAM Potassium Chloride (Micro-K Ext Rel), 10 MEQ PO BID Spironolactone (Aldactone), 12.5 MG PO QAM Tiotropium Adolphus (Spiriva Handihaler), 1 CAP INH QAM Trazodone Hcl (Desyrel), 200 TAB PO HS Venlafaxine Hcl (Effexor Extended Rel), 225 MG PO QAM Warfarin Sod (Jantoven), 5 MG PO 2XWK Warfarin Sodium (Warfarin Sodium), 7.5 MG PO UD Scheduled PRN Epinephrine (Epipen), 0.3 MG IM UD PRN for ALLERGIC REACTION Ipratropium Adolphus (Ipratropium Adolphus), 1 VIAL NEB Q6H PRN for Shortness of Breath Levalbuterol Hcl (Levalbuterol Hcl), 1.25 MG NEB Q6H PRN for SOB/Wheezing Lorazepam (Lorazepam), 0.5 MG PO UD PRN for Anxiety/Agitation Oxycodone HCl (Oxycodone HCl), 5 MG PO QID PRN for Pain Allergies Coded Allergies: BEE STING (Verified Allergy, Severe, SWELLING, 11/22/17) Lisinopril (Verified Allergy, Intermediate, FACE SWELLING, 11/22/17) Potato (Verified Allergy, Intermediate, BBQ chips - facial swelling, ) Metronidazole (Verified Allergy, Mild, FACE SWELLING, 11/22/17) [place] (Verified Allergy, Mild, HIVES, 11/22/17) Alprazolam (Verified Allergy, Unknown, RED FACE, FACE SWELLING, 11/22/17) Lactose (Verified Adverse Reaction, Intermediate, VOMTING DIARRHEA ABDOMINAL PAIN, 11/22/17) Prednisone (Verified Adverse Reaction, Mild, unknown, 11/22/17) Colesevelam (Verified Adverse Reaction, Unknown, unknown, 11/22/17) [place] (Verified Adverse Reaction, Unknown, jitters, 11/22/17) Physical Exam Vital Signs Date Time Temp Pulse Resp B/P (MAP) Pulse Ox O2 Delivery O2 Flow Rate FiO2 11/22/17 03:00 70 16 151/80 94 11/22/17 01:23 75 11/22/17 01:19 36.5 74 16 176/83 93 Room Air Physical Exam GENERAL: Somnolent, answers all questions. Follows all commands. Moves weakly. Patient is well appearing and in no acute distress. EYES: Small reactive pupils bilaterally. No scleral icterus. ENT: Mucous membranes moist, no nasal congestion. NECK: No masses appreciated, no meningismus, trachea is midline. RESPIRATORY: No dyspnea. Clear to auscultation and equal bilaterally. No wheeze , no rhonchi. CARDIOVASCULAR: Regular rate and rhythm. No murmurs, rubs, gallops appreciated. GASTROINTESTINAL: Abdomen soft, nontender, no peritonitis. Bowel sounds positive. No masses appreciated. BACK: No midline tenderness, no CVA tenderness EXTREMITIES: Normal motion all extremities, no cyanosis, no edema. NEUROLOGIC: Alert and oriented, no acute motor or sensory deficits, no focal weakness, cranial nerves grossly intact. SKIN: No rash, no jaundice, no diaphoresis. Medical Decision & Procedures ER Provider Diagnostic Interpretation: [facility] Read: Imaging and Read reviewed by me: CT HEAD: Comparison: MRI brain 06/13/14. Stable chronic cortical infarcts in the bilateral frontal lobes. No ICH, mass effect, or edema. 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 Calcified 10 mm extra-axial lesion along the right frontal convexity, likely meningioma. No skull fracture. Right sphenoid sinus mucosal thickening. Radiologist: Jennifer Garcia M.D. CHEST ONE VIEW: Bilateral congestive findings, enlarged heart. Similar to previous. No infiltrates. Laboratory Results 11/22/17 01:40 Red Blood Count 3.76, Mean Corpuscular Volume 87.5, Mean Corpuscular Hemoglobin 30.1, Mean Corpuscular Hemoglobin Concent 34.3, Mean Platelet Volume 8.8, Neutrophils (%) (Auto) 65.5, Lymphocytes (%) (Auto) 22.7, Monocytes (%) (Auto) 8.7, Eosinophils (%) (Auto) 2.7, Basophils (%) (Auto) 0.3, Neutrophils # (Auto) 5.02, Lymphocytes # (Auto) 1.74, Monocytes # (Auto) 0.67, Eosinophils # (Auto) 0.21, Basophils # (Auto) 0.02 11/22/17 01:40 Test 11/22/17 01:40 11/22/17 02:00 White Blood Count 7.67 K/uL (4.8-10.8) Red Blood Count 3.76 M/uL (4.2-5.4) Hemoglobin 11.3 g/dL (12.0-16.0) Hematocrit 32.9 % (37-47) Mean Corpuscular Volume 87.5 fL (80-100) Mean Corpuscular Hemoglobin 30.1 pg (25-34) Mean Corpuscular Hemoglobin Concent 34.3 g/dl (32-36) Platelet Count 286 K/uL (130-400) Mean Platelet Volume 8.8 fL (7.4-10.4) Neutrophils (%) (Auto) 65.5 % Lymphocytes (%) (Auto) 22.7 % Monocytes (%) (Auto) 8.7 % Eosinophils (%) (Auto) 2.7 % Basophils (%) (Auto) 0.3 % Neutrophils # (Auto) 5.02 K/uL (1.4-6.5) Lymphocytes # (Auto) 1.74 K/uL (1.2-3.4) Monocytes # (Auto) 0.67 K/uL (0.11-0.59) Eosinophils # (Auto) 0.21 K/uL (0-0.5) Basophils # (Auto) 0.02 K/uL (0-0.2) RDW Standard Deviation 46.1 fL (36.4-46.3) RDW Coefficient of Variation 14.3 % (11.5-14.5) Immature Granulocyte % (Auto) 0.1 % Immature Granulocyte # (Auto) 0.01 K/uL (0.00-0.02) Prothrombin Time 19.9 SECONDS (9.0-12.0) Prothromb Time International Ratio 1.9 (0.9-1.1) Activated Partial Thromboplast Time 35.6 SECONDS (21.0-31.0) Partial Thromboplastin Ratio 1.4 Anion Gap 8.0 mmol/L (3-11) Est Creatinine Clear Calc Drug Dose 56.6 ml/min Estimated GFR () 57.1 Estimated GFR (Non- 49.2 BUN/Creatinine Ratio 16.4 (10-20) Calcium Level 9.0 mg/dl (8.5-10.1) Phosphorus Level 3.7 mg/dl (2.5-4.9) Magnesium Level 1.9 mg/dl (1.8-2.4) Total Bilirubin 0.2 mg/dl (0.2-1) Direct Bilirubin < 0.1 mg/dl (0-0.2) Aspartate Amino Transf (AST/SGOT) 18 U/L (15-37) Alanine Aminotransferase (ALT/SGPT) 33 U/L (12-78) Alkaline Phosphatase 73 U/L (45-117) Total Creatine Kinase 179 U/L (26-192) Creatine Kinase MB 1.4 ng/ml (0.5-3.6) Creatine Kinase MB Ratio 0.8 (0-3.0) Troponin I < 0.015 ng/ml (0-0.045) Total Protein 6.6 gm/dl (6.4-8.2) Albumin 2.9 gm/dl (3.4-5.0) Lipase 175 U/L (73-393) Urine Color YELLOW Urine Appearance CLEAR (CLEAR) Urine pH 6.5 (4.5-7.5) Urine Specific [place] 1.005 (1.000-1.030) Urine Protein NEG (NEG) Urine Glucose (UA) TRACE (NEG) Urine Ketones NEG (NEG) Urine Occult Blood NEG (NEG) Urine Nitrite NEG (NEG) Urine Bilirubin NEG (NEG) Urine Urobilinogen NEG (NEG) Urine Leukocyte Esterase NEG (NEG) Urine WBC (Auto) 1-5 /hpf (0-5) Urine RBC (Auto) 0-4 /hpf (0-4) Urine Hyaline Casts (Auto) 0 /lpf (0-5) Urine Epithelial Cells (Auto) 5-10 /lpf (0-5) Urine Bacteria (Auto) NEG (NEG) Laboratory results as reviewed by me. Medications Administered Medications (Trade) Dose Ordered Sig/Artemio Route Start Time Stop Time Status Last Admin Dose Admin Potassium Chloride (Klor-Con Tab) 40 meq NOW STAT PO 11/22/17 02:29 11/22/17 02:30 DC 11/22/17 02:50 40 MEQ Furosemide (Lasix Inj) 40 mg NOW STAT IV 11/22/17 02:29 11/22/17 02:30 DC 11/22/17 02:50 40 MG ECG Per My Interpretation Indication: other (hemoptysis) Rate (beats per minute): 68 Rhythm: normal sinus Findings: RBBB, no acute ischemic change, no ectopy ED Course 0120: The patient was evaluated in room B6. A complete history and physical exam was performed. 0228: I checked on the patient and she is awake and would like to go home. She admits to drinking a lot of water because she is thirsty. 0230: I reevaluated the patient. Discussed results and discharge instructions: She verbalized understanding and agreement. The patient is ready for discharge. Medical Decision Differential: Sepsis, Infectious (UTI/Pneumonia/Meningitis/etc), Metabolic/ Electrolyte Abnormality, Cardiac, Dehydration, Anemia, Hepatic, Endocrine, Toxicologic, Neurologic, amongst other pathologies entertained. 62 yr old female arrives with complaint of feeling tingling all over. Initially somnolent though slowly awoke and completely interactive. CT head done as she reports headache earlier and now somnolent which fortunately was negative. CXR with fluid overload which is chronic for her. Na and K low which is also not unusual for her. I discussed with her these findings and she admits she has been drinking a lot of water recently. States that IV lasix make her feel better in past. She makes clear she needs to get home. Given IV lasix plus oral K and I heavily stressed follow up with PCP in a few days. She is breathing comfortably on normal NC and in no distress. She has no further requests except fact that she and want to leave as quickly as possible. I suspect her initial somnolence and out of body feeling is due to the many sedative medications she is on and I heavily stressed against using all of them at the same time. Head Trauma GCS Score: 15 Medication Reconcilliation Current Medication List: was personally reviewed by me Blood Pressure Screening Patient's blood pressure: Elevated blood pressure Blood pressure disposition: Elevated BP felt to be situational Impression Primary Impression: Tingling sensation Additional Impressions: Congestive heart failure (CHF) Hyponatremia Hypokalemia Scribe Attestation The scribe's documentation has been prepared under my direction and personally reviewed by me in its entirety. I confirm that the note above accurately reflects all work, treatment, procedures, and medical decision making performed by me. Departure Information Dispostion Home / Self-Care Referrals Manoj Goins D.O. (PCP) Patient Instructions My [facility] Additional Instructions Stop drinking so much water. This is getting on your lungs and effecting your electrolytes. Call your doctor on Friday to set up an appointment as soon as possible. Return if worsening symptoms or other concerns. Problem Qualifiers
[2017-11-22 01:51] LABS: BASO % 0.3 %; BASO ABS # 0.02 K/uL (0-0.2); EOS % 2.7 %; EOS ABS # 0.21 K/uL (0-0.5); HEMATOCRIT 32.9 % (37-47); HEMOGLOBIN 11.3 g/dL (12.0-16.0); IG# 0.01 K/uL (0.00-0.02); LYMPH % 22.7 %; LYMPH ABS # 1.74 K/uL (1.2-3.4); MEAN CELL VOLUME 87.5 fL (80-100); MEAN CORPUSCULAR HEMOGLOBIN 30.1 pg (25-34); MEAN CORPUSCULAR HGB CONC 34.3 g/dl (32-36); MEAN PLATELET VOLUME 8.8 fL (7.4-10.4); MONO % 8.7 %; MONO ABS # 0.67 K/uL (0.11-0.59); NEUT % 65.5 %; NEUT ABS # 5.02 K/uL (1.4-6.5); PLATELET COUNT 286 K/uL (130-400); RED CELL DISTRIBUTION WIDTH CV 14.3 % (11.5-14.5); RED CELL DISTRIBUTION WIDTH SD 46.1 fL (36.4-46.3); WHITE BLOOD COUNT 7.67 K/uL (4.8-10.8)
[2017-11-22 02:01] LABS: INR 1.9 (0.9-1.1); PTT PATIENT 35.6 SECONDS (21.0-31.0)
[2017-11-22 02:10] LABS: ALBUMIN 2.9 gm/dl (3.4-5.0); ALT/SGPT 33 U/L (12-78); AST/SGOT 18 U/L (15-37); BLOOD UREA NITROGEN 20 mg/dl (7-18); CARBON DIOXIDE 34 mmol/L (21-32); CREATININE 1.19 mg/dl (0.60-1.20); GLUCOSE 206 mg/dl (70-99); LIPASE 175 U/L (73-393); POTASSIUM 2.9 mmol/L (3.5-5.1); SODIUM 128 mmol/L (136-145)
[2017-11-22 02:12] LABS: ALKALINE PHOSPHATASE 73 U/L (45-117); CKMB 1.4 ng/ml (0.5-3.6); PHOSPHORUS 3.7 mg/dl (2.5-4.9); TOTAL PROTEIN 6.6 gm/dl (6.4-8.2)
[2017-11-22] MEDS ORDERED: FUROSEMIDE 40 MG/4 ML VIAL IV STA (02:29)
[2017-11-22] MEDS ORDERED: POTASSIUM CHLORIDE 20 MEQ TABCR PO STA (02:29)
[2017-11-22 03:00] VITALS: BP 151/80; PULSE 70; O2SAT 94
--- NOTE | 2017-11-22 05:55 | DIAGNOSTIC IMAGING REPORT ---
HEAD WITHOUT CONTRAST (CT) CLINICAL HISTORY: 62 years-old Female with Generalized Weakness. Acute weakness TECHNIQUE: Multiple axial CT images of the head were obtained without contrast. A dose lowering technique was utilized adhering to the principles of ALARA. CT DOSE: 537.48 mGy.cm COMPARISON: CT head 11/16/2017, MRI brain 06/13/2014. FINDINGS: No acute intracranial hemorrhage, midline shift, hydrocephalus, territorial ischemia or abnormal extra-axial collection. 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 Mild atrophy. Areas of low-attenuation within the bilateral frontal lobes in the vertex are unchanged suggesting areas of chronic microvascular ischemic changes. Calcified 9 mm extra-axial lesion adjacent to the right frontal lobe is again noted suggesting a calcified meningioma. The calvarium is intact. Trace right mastoid effusion. Mild mucosal thickening of the right sphenoid sinus. Soft tissues and orbits are unremarkable. IMPRESSION: No acute intracranial abnormality. The above report was generated using voice recognition software. It may contain grammatical, syntax or spelling errors. Electronically signed by: Ye Alva M.D. 11/22/2017 5:54 AM Dictated Date/Time: 11/22/2017 5:50 AM
--- NOTE | 2017-11-22 06:16 | DIAGNOSTIC IMAGING REPORT ---
CHEST ONE VIEW PORTABLE HISTORY: 62 years-old Female Generalized Weakness acute weakness COMPARISON: Chest radiograph 10/29/2017, CT chest 11/16/2017 TECHNIQUE: Portable AP view of the chest FINDINGS: Cardiac silhouette is again enlarged. Prosthetic mitral valve noted. Atherosclerosis of the aorta. Emphysema with chronic interstitial coarsening. Additionally there is pulmonary vascular congestion with new interstitial opacities suggesting pulmonary edema. Hazy bibasilar opacities. No pneumothorax or pleural effusion. Surgical clips project over the right upper chest wall. The bones appear grossly intact. IMPRESSION: 1. Cardiomegaly with bilateral interstitial coarsening, right greater than left suggesting mild pulmonary edema on a background of emphysema with chronic reticular scarring. 2. Hazy bibasilar opacities favor atelectasis. The above report was generated using voice recognition software. It may contain grammatical, syntax or spelling errors. Electronically signed by: Ye Alva M.D. 11/22/2017 6:15 AM Dictated Date/Time: 11/22/2017 6:11 AM
== END 2017-11-22 03:00 | disposition home or self-care (01) ==
LOC: EDBD 01:12 → C.EDB 01:14
DX: R20.2 Paresthesia of skin (principal); I50.9 Heart failure, unspecified; E87.1 Hypo-osmolality and hyponatremia; E87.6 Hypokalemia; R40.0 Somnolence; J45.909 Unspecified asthma, uncomplicated; F31.9 Bipolar disorder, unspecified; G89.29 Other chronic pain; I27.81 Cor pulmonale (chronic); I11.0 Hypertensive heart disease with heart failure; I48.0 Paroxysmal atrial fibrillation; J96.10 Chronic respiratory failure, unspecified whether with hypoxia or hypercapnia; J44.9 Chronic obstructive pulmonary disease, unspecified; E11.43 Type 2 diabetes mellitus with diabetic autonomic (poly)neuropathy; K21.9 Gastro-esophageal reflux disease without esophagitis; E03.9 Hypothyroidism, unspecified; G47.33 Obstructive sleep apnea (adult) (pediatric); M19.90 Unspecified osteoarthritis, unspecified site; Z79.01 Long term (current) use of anticoagulants; Z79.4 Long term (current) use of insulin; F17.200 Nicotine dependence, unspecified, uncomplicated; Z99.81 Dependence on supplemental oxygen; Z86.718 Personal history of other venous thrombosis and embolism; Z87.01 Personal history of pneumonia (recurrent); Z90.710 Acquired absence of both cervix and uterus; Z90.49 Acquired absence of other specified parts of digestive tract; Z98.51 Tubal ligation status; Z98.890 Other specified postprocedural states; Z83.3 Family history of diabetes mellitus; Z82.49 Family history of ischemic heart disease and other diseases of the circulatory system; Z83.79 Family history of other diseases of the digestive system; Z88.1 Allergy status to other antibiotic agents; Z88.8 Allergy status to other drugs, medicaments and biological substances; Z91.030 Bee allergy status; Z91.011 Allergy to milk products; Z91.018 Allergy to other foods

== ENCOUNTER → 2017-11-27 | Outpatient (CLI) | payer OTHER ==
--- NOTE | 2017-11-27 10:06 | DIAGNOSTIC IMAGING REPORT ---
L WRIST MIN 3 VIEWS ROUTINE CLINICAL HISTORY: 62 years-old Female presenting with LEFT WRIST PAIN. TECHNIQUE: Frontal, oblique, and lateral views of the left wrist were obtained. COMPARISON: 11/16/2017. FINDINGS: Osteopenia. Joint spaces preserved. No acute fracture or malalignment. No advanced degenerative change. Atherosclerosis. IMPRESSION: 1. No acute osseous injury or dense degenerative change. 2. Osteopenia. Electronically signed by: Erick Garner M.D. 11/27/2017 10:05 AM Dictated Date/Time: 11/27/2017 10:02 AM
== END | disposition home or self-care (01) ==
LOC: C.RDSM 16:48
PROVIDERS: ATTEND Family Medicine
DX: M25.532 Pain in left wrist (principal); M85.832 Other specified disorders of bone density and structure, left forearm

== ENCOUNTER 2017-12-07 15:58 | Emergency (ER) | payer OTHER ==
[~2017-12-07] VITALS: Ht 162.6 cm; Wt 91.0 kg
[2017-12-07 16:14] VITALS: TEMP 36.7; Ht 162.6 cm; Wt 91.0 kg
[2017-12-07] MEDS ORDERED: ALBINS/ INH (16:53)
[2017-12-07] MEDS ORDERED: BCTCR/30 EXT (16:55)
[2017-12-07] MEDS ORDERED: POLY335019 PO (16:55)
[2017-12-07] MEDS ORDERED: ONDA-170 PO (17:01)
[2017-12-07] MEDS ORDERED: IMD/2 PO (17:01)
[2017-12-07] MEDS ORDERED: DIPH-416 PO (17:01)
--- NOTE | 2017-12-07 17:18 | EMERGENCY ROOM VISIT NOTE ---
ED Visit Note First contact with patient: 16:47 I have seen and examined this patient with [place] Ritter and generally agree with the treatment plan as discussed. Problem List Medical Problems: (1) Asthma Status: Chronic (2) Atrial fibrillation Status: Chronic (3) Bipolar disorder Status: Chronic (4) C. difficile colitis Status: Resolved (5) Chronic abdominal pain Status: Chronic (6) Chronic cor pulmonale Status: Chronic (7) Chronic pain Status: Chronic (8) Chronic respiratory failure Status: Chronic (9) COPD, severe Status: Chronic (10) Depression Status: Chronic (11) DM type 2 (diabetes mellitus, type 2) Status: Chronic (12) DVT (deep venous thrombosis) Status: Resolved (13) Gastroparesis Status: Chronic (14) GERD (gastroesophageal reflux disease) Status: Chronic (15) HTN (hypertension) Status: Chronic (16) Hypothyroidism Status: Chronic (17) [place] toxicity Status: Resolved (18) DARIUS on CPAP Status: Chronic (19) Osteoarthritis Status: Chronic (20) PAF (paroxysmal atrial fibrillation) Status: Chronic Surgical Problems: (1) H/O: hysterectomy Status: Resolved (2) Hx of appendectomy Status: Resolved (3) Hx of cholecystectomy Status: Resolved (4) Hx of lumpectomy Status: Resolved (5) 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 Status: Resolved (6) Hx of tubal ligation Status: Resolved (7) Hx of umbilical hernia repair Status: Resolved Current/Historical Medications Scheduled Amitriptyline HCl (Amitriptyline HCl), 50 MG PO HS Amlodipine Besylate (Amlodipine Besylate), 10 MG PO QAM Atorvastatin (Lipitor), 40 MG PO HS Calcitriol (Calcitriol), 0.5 MCG PO 3XWK Cetirizine (Zyrtec), 10 MG PO QAM Cholecalciferol (Vitamin D3), 1,000 UNITS PO QAM Docusate Sodium (Docusate Sodium), 1 CAP PO AFTERNOON Fentanyl (Duragesic), 50 MCG TOP CQ72HR Fluticasone Prop/Salmeterol (Advair Diskus 250/50 60 Dose), 1 PUFF INH BID Furosemide (Lasix), 20 MG PO BID Gabapentin (Gabapentin), 800 MG PO TID Home O2 Therapy (Oxygen), 3 LITERS NA CONTINOUS Insulin Glargine (Lantus Solostar), 16 UNITS SC BID Methocarbamol (Methocarbamol), 750 MG PO TID Metolazone (Metolazone), 2.5 MG PO UD Metoprolol Tartrate (Lopressor) (Lopressor), 100 MG PO BID Multiple Vitamin (Multivitamin), 1 TAB PO QAM Mupirocin 2% (Bactroban 2%), 1 APPLN EXT BID Olanzapine (Olanzapine), 2.5 MG PO HS Pantoprazole (Protonix), 40 MG PO QAM Potassium Chloride (Micro-K Ext Rel), 10 MEQ PO BID Spironolactone (Aldactone), 12.5 MG PO QAM Tiotropium [place] (Spiriva Handihaler), 1 CAP INH QAM Trazodone Hcl (Desyrel), 200 TAB PO HS Venlafaxine Hcl (Effexor Extended Rel), 225 MG PO QAM Warfarin Sod (Jantoven), 5 MG PO 2XWK Warfarin Sodium (Warfarin Sodium), 7.5 MG PO UD Scheduled PRN Albuterol Sulf (Proventil 0.083% 2.5MG/3ML), 2.5 MG INH Q6H PRN for SOB/Wheezing Diphenoxylate/Atropine (Lomotil), 1 TAB PO BID PRN for Diarrhea Epinephrine (Epipen), 0.3 MG IM UD PRN for ALLERGIC REACTION Levalbuterol Hcl (Levalbuterol Hcl), 1.25 MG NEB Q6H PRN for SOB/Wheezing Loperamide Hcl (Imodium), 2 MG PO BID PRN for Diarrhea Lorazepam (Lorazepam), 0.5 MG PO UD PRN for Anxiety/Agitation Ondansetron Hcl (Zofran), 8 MG PO BID PRN for Nausea Oxycodone HCl (Oxycodone HCl), 5 MG PO QID PRN for Pain Polyethylene Glycol 3350 (Miralax), 17 GM PO DAILY PRN for Constipation Allergies Coded Allergies: BEE STING (Verified Allergy, Severe, SWELLING, 12/07/17) Lisinopril (Verified Allergy, Intermediate, FACE SWELLING, 12/07/17) Potato (Verified Allergy, Intermediate, BBQ chips - facial swelling, ) Metronidazole (Verified Allergy, Mild, FACE SWELLING, 12/07/17) [place] (Verified Allergy, Mild, HIVES, 12/07/17) Alprazolam (Verified Allergy, Unknown, RED FACE, FACE SWELLING, 12/07/17) Lactose (Verified Adverse Reaction, Intermediate, VOMTING DIARRHEA ABDOMINAL PAIN, 12/07/17) Prednisone (Verified Adverse Reaction, Mild, unknown, 12/07/17) Colesevelam (Verified Adverse Reaction, Unknown, unknown, 12/07/17) [place] (Verified Adverse Reaction, Unknown, jitters, 12/07/17) Vital Signs Date Time Temp Pulse Resp B/P (MAP) Pulse Ox O2 Delivery O2 Flow Rate FiO2 12/07/17 16:14 36.7 64 20 122/74 96 3.0 Departure Information Referrals Manoj Goins D.OElen (PCP) Patient Instructions My [facility]
--- NOTE | 2017-12-07 17:36 | DIAGNOSTIC IMAGING REPORT ---
L WRIST W/NAVICULAR MIN 3 VIEWS CLINICAL HISTORY: 62 years-old Female presenting with left wrist pain. TECHNIQUE: Frontal, bilateral oblique, lateral, and scaphoid views of the left wrist were obtained. COMPARISON: 11/27/2017. FINDINGS: Osteopenia may be present. Radiocarpal, intercarpal, and carpometacarpal articulations preserved. No acute fracture or malalignment. Specifically, no osseous abnormality of the scaphoid. No advanced degenerative change. No radiographic soft tissue abnormality. IMPRESSION: No acute osseous injury of the left wrist. Electronically signed by: Erick Garner M.D. 12/07/2017 5:35 PM Dictated Date/Time: 12/07/2017 5:34 PM
[2017-12-07] MEDS ORDERED: ACETAMINOPHEN 500 MG TAB PO STA (17:58)
[2017-12-07 18:06] VITALS: BP 99/46; PULSE 78; O2SAT 96
--- NOTE | 2017-12-07 18:47 | EMERGENCY ROOM VISIT NOTE ---
ED Visit Note First contact with patient: 16:47 CHIEF COMPLAINT: Wrist injury HISTORY OF PRESENT ILLNESS: This 62-year-old female patient presents to the emergency department complaining of pain in the left wrist after injuring it 3 weeks ago. The patient states that she fell while trying to get out of bed, and struck the nightstand. She was seen in the emergency department immediately after the injury where x-rays were negative. She did follow with orthopedics, where a second x-ray was performed and was also -10 days ago. She was given a splint but has not been wearing it. The patient is able to move their wrist. The patient states the pain is sharp and 10/10. No laceration, no weakness. No numbness or tingling. The patient denies any other injury. The patient is able to move their fingers and elbow without difficulty. The patient is on chronic oxycodone and fentanyl. She states she ran out of her oxycodone today and is requesting this medication. REVIEW OF SYSTEMS: A 6 system review of systems was performed with positives and pertinent negatives in the HPI. ALLERGIES: See EMR MEDICATIONS: See EMR PMH: See EMR SOCIAL HISTORY: Lives locally with family PHYSICAL EXAM: Vital Signs: Reviewed Nurse's notes, vital signs stable. GENERAL : White female, in no acute distress, but appears to be in pain, well-developed , well-neurished. NEURO: Alert and oriented to person place and time. Normal sensation to light and sharp touch. MUSCULOSKELETAL: There is no deformity of the left wrist. There is tenderness and edema over the distal radius. There is no snuff box tenderness. Range of motion is not limited. There is no tenderness of the elbow, hand or fingers. [place] strength []/5. Radial pulse 2+. SKIN: Normal and intact. The hand is warm and well perfused with capillary refill less than 2 seconds. L WRIST W/NAVICULAR MIN 3 VIEWS CLINICAL HISTORY: 62 years-old Female presenting with left wrist pain. TECHNIQUE: Frontal, bilateral oblique, lateral, and scaphoid views of the left wrist were obtained. COMPARISON: 11/27/2017. FINDINGS: Osteopenia may be present. Radiocarpal, intercarpal, and carpometacarpal articulations preserved. No acute fracture or malalignment. Specifically, no osseous abnormality of the scaphoid. No advanced degenerative change. No radiographic soft tissue abnormality. IMPRESSION: No acute osseous injury of the left wrist. EMERGENCY DEPARTMENT COURSE: Physical exam and history were performed. Nursing notes and EMR were reviewed. The patient presented to the emergency department during a period of high acuity and volume. Because of this nursing protocols were placed and an x-ray was obtained prior to my evaluation of the patient. The x-ray is as above and does not show acute fracture or dislocation. I had a lengthy discussion with the patient, who continues to have 3 weeks worth of wrist pain. The patient has multiple chronic pain related complaints, and is on a treatment plan at this facility. She regularly receives narcotics through her PCPs office, and will be referred back to them for her pain concerns. She has been following with orthopedics, and may also continue follow with them. She is not wearing her wrist brace, and I encourage this. The case was discussed with my attending physician, who also independently evaluated the patient and agrees. The patient was otherwise invited back to the ER with any new, worsening, or concerning symptoms. Problem List Medical Problems: (1) Asthma Status: Chronic (2) Atrial fibrillation Status: Chronic (3) Bipolar disorder Status: Chronic (4) C. difficile colitis Status: Resolved (5) Chronic abdominal pain Status: Chronic (6) Chronic cor pulmonale Status: Chronic (7) Chronic pain Status: Chronic (8) Chronic respiratory failure Status: Chronic (9) COPD, severe Status: Chronic (10) Depression Status: Chronic (11) DM type 2 (diabetes mellitus, type 2) Status: Chronic (12) DVT (deep venous thrombosis) Status: Resolved (13) Gastroparesis Status: Chronic (14) GERD (gastroesophageal reflux disease) Status: Chronic (15) HTN (hypertension) Status: Chronic (16) Hypothyroidism Status: Chronic (17) [place] toxicity Status: Resolved (18) DARIUS on CPAP Status: Chronic (19) Osteoarthritis Status: Chronic (20) PAF (paroxysmal atrial fibrillation) Status: Chronic Surgical Problems: (1) H/O: hysterectomy Status: Resolved (2) Hx of appendectomy Status: Resolved (3) Hx of cholecystectomy Status: Resolved (4) Hx of lumpectomy Status: Resolved (5) 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 Status: Resolved (6) Hx of tubal ligation Status: Resolved (7) Hx of umbilical hernia repair Status: Resolved Current/Historical Medications Scheduled Amitriptyline HCl (Amitriptyline HCl), 50 MG PO HS Amlodipine Besylate (Amlodipine Besylate), 10 MG PO QAM Atorvastatin (Lipitor), 40 MG PO HS Calcitriol (Calcitriol), 0.5 MCG PO 3XWK Cetirizine (Zyrtec), 10 MG PO QAM Cholecalciferol (Vitamin D3), 1,000 UNITS PO QAM Docusate Sodium (Docusate Sodium), 1 CAP PO AFTERNOON Fentanyl (Duragesic), 50 MCG TOP CQ72HR Fluticasone Prop/Salmeterol (Advair Diskus 250/50 60 Dose), 1 PUFF INH BID Furosemide (Lasix), 20 MG PO BID Gabapentin (Gabapentin), 800 MG PO TID Home O2 Therapy (Oxygen), 3 LITERS NA CONTINOUS Insulin Glargine (Lantus Solostar), 16 UNITS SC BID Methocarbamol (Methocarbamol), 750 MG PO TID Metolazone (Metolazone), 2.5 MG PO UD Metoprolol Tartrate (Lopressor) (Lopressor), 100 MG PO BID Multiple Vitamin (Multivitamin), 1 TAB PO QAM Mupirocin 2% (Bactroban 2%), 1 APPLN EXT BID Olanzapine (Olanzapine), 2.5 MG PO HS Pantoprazole (Protonix), 40 MG PO QAM Potassium Chloride (Micro-K Ext Rel), 10 MEQ PO BID Spironolactone (Aldactone), 12.5 MG PO QAM Tiotropium [place] (Spiriva Handihaler), 1 CAP INH QAM Trazodone Hcl (Desyrel), 200 TAB PO HS Venlafaxine Hcl (Effexor Extended Rel), 225 MG PO QAM Warfarin Sod (Jantoven), 5 MG PO 2XWK Warfarin Sodium (Warfarin Sodium), 7.5 MG PO UD Scheduled PRN Albuterol Sulf (Proventil 0.083% 2.5MG/3ML), 2.5 MG INH Q6H PRN for SOB/Wheezing Diphenoxylate/Atropine (Lomotil), 1 TAB PO BID PRN for Diarrhea Epinephrine (Epipen), 0.3 MG IM UD PRN for ALLERGIC REACTION Levalbuterol Hcl (Levalbuterol Hcl), 1.25 MG NEB Q6H PRN for SOB/Wheezing Loperamide Hcl (Imodium), 2 MG PO BID PRN for Diarrhea Lorazepam (Lorazepam), 0.5 MG PO UD PRN for Anxiety/Agitation Ondansetron Hcl (Zofran), 8 MG PO BID PRN for Nausea Oxycodone HCl (Oxycodone HCl), 5 MG PO QID PRN for Pain Polyethylene Glycol 3350 (Miralax), 17 GM PO DAILY PRN for Constipation Allergies Coded Allergies: BEE STING (Verified Allergy, Severe, SWELLING, 12/07/17) Lisinopril (Verified Allergy, Intermediate, FACE SWELLING, 12/07/17) Potato (Verified Allergy, Intermediate, BBQ chips - facial swelling, ) Metronidazole (Verified Allergy, Mild, FACE SWELLING, 12/07/17) [place] (Verified Allergy, Mild, HIVES, 12/07/17) Alprazolam (Verified Allergy, Unknown, RED FACE, FACE SWELLING, 12/07/17) Lactose (Verified Adverse Reaction, Intermediate, VOMTING DIARRHEA ABDOMINAL PAIN, 12/07/17) Prednisone (Verified Adverse Reaction, Mild, unknown, 12/07/17) Colesevelam (Verified Adverse Reaction, Unknown, unknown, 12/07/17) [place] (Verified Adverse Reaction, Unknown, jitters, 12/07/17) Vital Signs Date Time Temp Pulse Resp B/P (MAP) Pulse Ox O2 Delivery O2 Flow Rate FiO2 12/07/17 18:06 78 18 99/46 96 12/07/17 16:14 36.7 64 20 122/74 96 3.0 Medications Administered Medications (Trade) Dose Ordered Sig/Artemio Route Start Time Stop Time Status Last Admin Dose Admin Acetaminophen (Tylenol Tab) 1,000 mg NOW STAT PO 12/07/17 17:58 12/07/17 17:59 DC 12/07/17 18:05 1,000 MG Departure Information Impression Primary Impression: Wrist pain, left Dispostion Home / Self-Care Condition GOOD Referrals Manoj Goins D.O. (PCP) Forms WORK / SCHOOL INSTRUCTIONS, HOME CARE DOCUMENTATION FORM, IMPORTANT VISIT INFORMATION Patient Instructions My [facility] Additional Instructions You were seen and evaluated today on an emergency basis only. This is not a substitute for, or an effort to provide, complete comprehensive medical care. It is not possible to recognize and treat all injuries or illnesses in a single emergency department visit. For this reason it is recommended that you followup with your primary care physician or orthopedist for ongoing care and evaluation. Wear your wrist splint. You are welcome to return to the emergency department anytime with new, worsening, or concerning symptoms.
== END 2017-12-07 18:06 | disposition home or self-care (01) ==
LOC: C.EDB 15:59 → C.EDD 18:06
DX: M25.532 Pain in left wrist (principal); W01.198A Fall on same level from slipping, tripping and stumbling with subsequent striking against other object, initial encounter; J45.909 Unspecified asthma, uncomplicated; G89.29 Other chronic pain; E11.9 Type 2 diabetes mellitus without complications; J44.9 Chronic obstructive pulmonary disease, unspecified; I10 Essential (primary) hypertension; Z99.81 Dependence on supplemental oxygen; Z79.01 Long term (current) use of anticoagulants; F31.9 Bipolar disorder, unspecified; Z86.718 Personal history of other venous thrombosis and embolism; Z91.030 Bee allergy status; Z88.8 Allergy status to other drugs, medicaments and biological substances; Z91.018 Allergy to other foods

== ENCOUNTER 2018-01-11 11:01 | Inpatient (IN) | payer OTHER ==
[~2018-01-11] VITALS: Ht 162.6 cm; Wt 96.0 kg
[~2018-01-11 11:01] MED LIST changes: +ALBINS/ INH; -ATRINS NEB; +BCTCR/30 EXT; +DIPH-416 PO; +IMD/2 PO; -LEVO50TA PO; -METO1TAB55 PO; +ONDA-170 PO; +POLY335019 PO
[2018-01-11 11:53] LABS: HEMATOCRIT 36.3 % (37-47); HEMOGLOBIN 12.8 g/dL (12.0-16.0); MEAN CELL VOLUME 85.8 fL (80-100); MEAN CORPUSCULAR HEMOGLOBIN 30.3 pg (25-34); MEAN CORPUSCULAR HGB CONC 35.3 g/dl (32-36); MEAN PLATELET VOLUME 8.6 fL (7.4-10.4); PLATELET COUNT 342 K/uL (130-400); RED CELL DISTRIBUTION WIDTH CV 14.2 % (11.5-14.5); RED CELL DISTRIBUTION WIDTH SD 44.4 fL (36.4-46.3); WHITE BLOOD COUNT 8.62 K/uL (4.8-10.8)
[2018-01-11 12:03] LABS: INR 2.2 (0.9-1.1); PTT PATIENT 37.5 SECONDS (21.0-31.0)
[2018-01-11 12:07] LABS: ALBUMIN 3.3 gm/dl (3.4-5.0); CALCIUM 9.2 mg/dl (8.5-10.1); CREATININE 1.14 mg/dl (0.60-1.20); POTASSIUM 3.1 mmol/L (3.5-5.1)
[2018-01-11] MEDS ORDERED: ALBUT/IPRATROP 3MG/0.5MG NEB 3 ML VIAL INH STA (12:10)
[2018-01-11] MEDS ORDERED: SODIUM CHLORIDE 0.9% 1000ML 1,000 ML IV STA (12:10)
[2018-01-11 12:12] LABS: CKMB 1.3 ng/ml (0.5-3.6); TOTAL PROTEIN 7.6 gm/dl (6.4-8.2)
--- NOTE | 2018-01-11 12:20 | DIAGNOSTIC IMAGING REPORT ---
SINGLE VIEW CHEST CLINICAL HISTORY: Atypical chest pain. Dyspnea. FINDINGS: An AP, portable, upright chest radiograph is compared to study dated 11/22/2017 and correlated with chest CT dated 11/16/2017. The examination is degraded by portable technique and patient rotation. There is evidence of previous mitral valve surgery. The heart is enlarged and there is atherosclerotic calcification of the thoracic aorta. There is pulmonary vascular congestion with evidence of interstitial edema. Emphysema and chronic interstitial thickening are similar to previous. Bibasilar atelectasis is observed. No large pleural effusion is identified. No pneumothorax is seen. The skeletal structures are osteopenic. The bony thorax is grossly intact. Surgical clips project over the right axilla. IMPRESSION: 1. Cardiomegaly with evidence of congestive failure and interstitial edema. 2. No large pleural effusion is identified. 3. Emphysema. Electronically signed by: Jame Batres M.D. 01/11/2018 12:18 PM Dictated Date/Time: 01/11/2018 12:17 PM
[2018-01-11 12:37] VITALS: O2SAT 97; Ht 162.6 cm; Wt 96.0 kg
[2018-01-11] MEDS ORDERED: ACETAMINOPHEN 325 MG TAB PO PRN (12:45)
--- NOTE | 2018-01-11 12:54 | EMERGENCY ROOM VISIT NOTE ---
History Report prepared by [place]: Lindsey Domínguez Under the Supervision of: Dr. Richar Briones M.D. First contact with patient: 11:57 Chief Complaint: ARM PAIN Stated Complaint: CHEST PAIN,SOB,LEFT ARM PAIN,NAUSEA Nursing Triage Summary: Pt. reports left arm pain x3 months and states she's "tried everything." She reports that she developed chest pain yesterday around 10am and also developed shortness of breath that is exacerbated with activity. Pt. wears 3L O2 at home at all times, was 91% on RA. History of Present Illness The patient is a 62 year old female who presents to the Emergency Room with complaints of persistent chest pain that began one day ago. She reports that she wears 3L of oxygen at home, noting that her recent chest pain has been causing her to be short of breath and nauseous. The patient states that she had a heart catheterization in the past, but she denies having any stents in place. She notes that she has a nebulizer at home, but states that she did not think she needed to use it. 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 She states that she fell out of bed about 4 months ago, noting that she her right wrist has been hurting since then. The patient notes that she has been seeing her primary care physician and a physical therapist to relieve her wrist pain, which she states has not been helping. She reports that she ran out of narcotics to relieve her symptom. The patient states that she smokes about 10 cigarettes a day. Source of History: patient Onset: one day ago Position: chest Quality: other (chest pain) Timing: other (persistent) Associated Symptoms: + SOB, + nausea Note: Associated symptoms include: right wrist pain. Review of Systems See HPI for pertinent positives & negatives. A total of 10 systems reviewed and were otherwise negative. Past Medical & Surgical Medical Problems: (1) Acute electrocardiogram changes (2) Asthma (3) Atrial fibrillation (4) Bipolar disorder (5) C. 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 (26) DARIUS on CPAP (27) Osteoarthritis (28) PAF (paroxysmal atrial fibrillation) (29) Pneumonia Surgical Problems: (1) H/O: hysterectomy (2) Hx of appendectomy (3) Hx of cholecystectomy (4) Hx of lumpectomy (5) Hx of mitral valve repair (6) Hx of tubal ligation (7) Hx of umbilical hernia repair Family History Diabetes mellitus MOTHER FH: Crohn's disease SISTER Hypertension MOTHER Social History Smoking Status: Current Every Day Smoker Alcohol Use: none Drug Use: none Marital Status: Housing Status: lives with significant other Occupation Status: disabled Current/Historical Medications Scheduled Amitriptyline HCl (Amitriptyline HCl), 50 MG PO HS Amlodipine Besylate (Amlodipine Besylate), 10 MG PO QAM Atorvastatin (Lipitor), 40 MG PO HS Calcitriol (Calcitriol), 0.5 MCG PO 3XWK Cetirizine (Zyrtec), 10 MG PO QAM Cholecalciferol (Vitamin D3), 1,000 UNITS PO QAM Docusate Sodium (Docusate Sodium), 100 MG PO DAILY Fentanyl (Duragesic), 50 MCG TOP [id number] Fluticasone Prop/Salmeterol (Advair Diskus 250/50 60 Dose), 1 PUFF INH BID Furosemide (Furosemide), 40 MG PO BID Gabapentin (Gabapentin), 800 MG PO TID Home O2 Therapy (Oxygen), 3 LITERS NA CONTINOUS Insulin Glargine (Lantus Solostar), 16 UNITS SC BID Metolazone (Metolazone), 2.5 MG PO UD Metoprolol Tartrate (Lopressor) (Lopressor), 100 MG PO BID Multiple Vitamin (Multivitamin), 1 TAB PO QAM Mupirocin 2% (Bactroban 2%), 1 APPLN EXT BID Olanzapine (Olanzapine), 2.5 MG PO HS Pantoprazole (Protonix), 40 MG PO QAM Potassium Chloride (Micro-K Ext Rel), 10 MEQ PO BID Ranitidine Hcl (Ranitidine Hcl), 300 MG PO HS Spironolactone (Aldactone), 12.5 MG PO QAM Tiotropium [place] (Spiriva Handihaler), 1 CAP INH QAM Trazodone Hcl (Desyrel), 200 TAB PO HS Venlafaxine Hcl (Effexor Extended Rel), 225 MG PO QAM Venlafaxine Hcl (Effexor Extended Rel), 150 MG PO DAILY Warfarin Sod (Jantoven), 5 MG PO 2XWK Warfarin Sodium (Warfarin Sodium), 7.5 MG PO 5XWK Scheduled PRN Albuterol Sulf (Proventil 0.083% 2.5MG/3ML), 2.5 MG INH Q6H PRN for SOB/Wheezing Diphenoxylate/Atropine (Lomotil), 1 TAB PO BID PRN for Diarrhea Epinephrine (Epipen), 0.3 MG IM UD PRN for ALLERGIC REACTION Loperamide Hcl (Imodium), 2 MG PO BID PRN for Diarrhea Lorazepam (Lorazepam), 0.5 MG PO UD PRN for Anxiety/Agitation Ondansetron Hcl (Zofran), 8 MG PO BID PRN for Nausea Oxycodone HCl (Oxycodone HCl), 10 MG PO Q6 PRN for Pain Polyethylene Glycol 3350 (Miralax), 17 GM PO DAILY PRN for Constipation Allergies Coded Allergies: BEE STING (Verified Allergy, Severe, SWELLING, 01/11/18) Lisinopril (Verified Allergy, Intermediate, FACE SWELLING, 01/11/18) Potato (Verified Allergy, Intermediate, BBQ chips - facial swelling, ) Metronidazole (Verified Allergy, Mild, FACE SWELLING, 01/11/18) Buchanan (Verified Allergy, Mild, HIVES, 01/11/18) Alprazolam (Verified Allergy, Unknown, RED FACE, FACE SWELLING, 01/11/18) Lactose (Verified Adverse Reaction, Intermediate, VOMTING DIARRHEA ABDOMINAL PAIN, 01/11/18) Prednisone (Verified Adverse Reaction, Mild, unknown, 01/11/18) Colesevelam (Verified Adverse Reaction, Unknown, unknown, 01/11/18) Ivan (Verified Adverse Reaction, Unknown, jitters, 01/11/18) Physical Exam Vital Signs Date Time Temp Pulse Resp B/P (MAP) Pulse Ox O2 Delivery O2 Flow Rate FiO2 4/29/18 12:38 61 14 97 Nasal Cannula 3.0 01/11/18 12:37 97 Nasal Cannula 3.0 01/11/18 12:33 66 12 97 Nasal Cannula 3.0 01/11/18 12:31 164/78 01/11/18 12:03 65 19 96 Nasal Cannula 3.0 01/11/18 12:01 155/68 01/11/18 11:41 96 Nasal Cannula 3.0 01/11/18 11:35 69 01/11/18 11:32 97 Nasal Cannula 3.0 01/11/18 11:32 64 12 140/79 96 Nasal Cannula 3.0 01/11/18 11:32 96 Nasal Cannula 3.0 01/11/18 11:05 36.5 70 20 156/75 93 Room Air Physical Exam GENERAL: Patient is chronically unwell appearing. Tired appearing. Minimal distress. EYES: No scleral icterus, unremarkable pupils. ENT: Mucous membranes moist, no nasal congestion. NECK: No masses appreciated, no meningismus, trachea is midline. RESPIRATORY: No dyspnea. Clear to auscultation and equal bilaterally. No wheeze , no rhonchi. CARDIOVASCULAR: Regular rate and rhythm. No murmurs, rubs, gallops appreciated. GASTROINTESTINAL: Abdomen soft, nontender, no peritonitis. Bowel sounds positive. No masses appreciated. BACK: No midline tenderness, no CVA tenderness EXTREMITIES: Normal motion all extremities, no cyanosis, no edema. NEUROLOGIC: Alert and oriented, no acute motor or sensory deficits, no focal weakness, cranial nerves grossly intact. SKIN: No rash, no jaundice, no diaphoresis. Medical Decision & Procedures ER Provider Diagnostic Interpretation: Radiology results and stated below per my review and radiologist interpretation: SINGLE VIEW CHEST CLINICAL HISTORY: Atypical chest pain. Dyspnea. FINDINGS: An AP, portable, upright chest radiograph is compared to study dated 11/22/2017 and correlated with chest CT dated 11/16/2017. The examination is degraded by portable technique and patient rotation. There is evidence of previous mitral valve surgery. The heart is enlarged and there is atherosclerotic calcification of the thoracic aorta. There is pulmonary vascular congestion with evidence of interstitial edema. Emphysema and chronic interstitial thickening are similar to previous. Bibasilar atelectasis is observed. No large pleural effusion is identified. No pneumothorax is seen. The skeletal structures are osteopenic. The bony thorax is grossly intact. Surgical clips project over the right axilla. IMPRESSION: 1. Cardiomegaly with evidence of congestive failure and interstitial edema. 2. No large pleural effusion is identified. 3. Emphysema. Electronically signed by: Jame Batres M.D. 01/11/2018 12:18 PM Dictated Date/Time: 01/11/2018 12:17 PM Laboratory Results 01/11/18 11:25 01/11/18 11:25 Test 01/11/18 11:25 01/11/18 11:45 Red Blood Count 4.23 M/uL (4.2-5.4) Mean Corpuscular Volume 85.8 fL (80-100) Mean Corpuscular Hemoglobin 30.3 pg (25-34) Mean Corpuscular Hemoglobin Concent 35.3 g/dl (32-36) RDW Standard Deviation 44.4 fL (36.4-46.3) RDW Coefficient of Variation 14.2 % (11.5-14.5) Mean Platelet Volume 8.6 fL (7.4-10.4) Prothrombin Time 23.2 SECONDS (9.0-12.0) Prothromb Time International Ratio 2.2 (0.9-1.1) Activated Partial Thromboplast Time 37.5 SECONDS (21.0-31.0) Partial Thromboplastin Ratio 1.4 Anion Gap 4.0 mmol/L (3-11) Est Creatinine Clear Calc Drug Dose 58.9 ml/min Estimated GFR () 60.1 Estimated GFR (Non- 51.9 BUN/Creatinine Ratio 19.4 (10-20) Calcium Level 9.2 mg/dl (8.5-10.1) Total Bilirubin 0.4 mg/dl (0.2-1) Aspartate Amino Transf (AST/SGOT) 30 U/L (15-37) Alanine Aminotransferase (ALT/SGPT) 40 U/L (12-78) Alkaline Phosphatase 86 U/L (45-117) Total Creatine Kinase 290 U/L (26-192) Creatine Kinase MB 1.3 ng/ml (0.5-3.6) Creatine Kinase MB Ratio 0.4 (0-3.0) Total Protein 7.6 gm/dl (6.4-8.2) Albumin 3.3 gm/dl (3.4-5.0) Globulin 4.3 gm/dl (2.5-4.0) Albumin/Globulin Ratio 0.8 (0.9-2) Bedside Troponin I < 0.030 ng/ml (0-0.045) Laboratory results as reviewed by me. Medications Administered Medications (Trade) Dose Ordered Sig/Artemio Route Start Time Stop Time Status Last Admin Dose Admin Albuterol/ Ipratropium (Duoneb) 3 ml NOW STAT INH 01/11/18 12:10 01/11/18 12:14 DC 01/11/18 12:35 3 ML ECG Per My Interpretation Indication: chest pain Rate (beats per minute): 73 Rhythm: sinus rhythm Findings: 1st degree AV block, RBBB, other (prolonged QTC waves) Change: no significant change (11/22/17) ED Course 1200: The patient was evaluated in room C3. A complete history and physical exam was performed. 1233: Discussed the patient's case with Dr. Delgado, [facility] hospitalist. The patient will be evaluated for further treatment and disposition. 1238: I reevaluated the patient, who was resting. She stated that she drinks a lot of soda. Updated her on test findings and the treatment plan. She verbalized complete understanding and agreement. Medical Decision Differential: Sepsis, Infectious (UTI/Pneumonia/Meningitis/etc), Metabolic/ Electrolyte Abnormality, Cardiac, Dehydration, Anemia, Hepatic, Endocrine, Toxicologic, Neurologic, amongst other pathologies entertained. 62 yr old female arrives for evaluation of chest pain, shortness of breath and weakness as well as left arm pain. Admits she ran out of her pain medications a few days ago and pain is worse. Admits she drinks lots of soda all day long. Work-up unremarkable for any cardiac cause of these 24 hours of symptoms. No suggestion of PE by history nor exam. Na is quite low which likely explains her weakness. She has chronically been dropping which I suspect is fact she has poor diet and drinks large amounts of soda all day long. As for her arm pain, this has been extensively worked up and followed by PCP and already seeing PT, thus with normal exam of arm I do not feel that further imaging, testing necessary, nor do I feel that given narcotics to her when she should be following with her PCP about this is acceptable (especially given she already has fentanyl patch on). Given hypoNa the hospitalist was consulted for further evaluation. Head Trauma GCS Score: 15 Medication Reconcilliation Current Medication List: was personally reviewed by me Blood Pressure Screening Patient's blood pressure: Elevated blood pressure Blood pressure disposition: Referred to PCP (monitored by hospitalist) Consults Time Called: 1233 Consulting Physician: Kandy Craft hospitalist Returned Call: [phone] Discussed the patient's case with Kandy Craft hospitalist. The patient will be evaluated for further treatment and disposition. Impression Primary Impression: Generalized weakness Additional Impressions: Hyponatremia Chest pain Shortness of breath Scribe Attestation The scribe's documentation has been prepared under my direction and personally reviewed by me in its entirety. I confirm that the note above accurately reflects all work, treatment, procedures, and medical decision making performed by me. Departure Information Dispostion Being Evaluated By Hospitalist Referrals Manoj Goins D.O. (PCP) Forms HOME CARE DOCUMENTATION FORM, IMPORTANT VISIT INFORMATION Patient Instructions My [facility] Problem Qualifiers
[2018-01-11 13:52] VITALS: BP 143/80; PULSE 67; TEMP 36.7; O2SAT 95
[2018-01-11 15:29] VITALS: BP 126/76; PULSE 62; TEMP 36.8; O2SAT 96
[2018-01-11 15:30] VITALS: O2SAT 96
[2018-01-11] MEDS ORDERED: LSX40 PO (16:26)
[2018-01-11] MEDS ORDERED: RANI300C PO (16:26)
[2018-01-11] MEDS ORDERED: EFFSR150 PO (16:32)
[2018-01-11] MEDS ORDERED: POLYETHYLENE (MIRALAX) 17 GM PACK PO PRN (16:45)
[2018-01-11] MEDS ORDERED: POTASSIUM CHLORIDE 20 MEQ TABCR PO ONE (16:45)
[2018-01-11] MEDS ORDERED: ALBUTEROL 0.083% NEBU SOLN 3 ML VIAL INH PRN (16:45)
[2018-01-11] MEDS ORDERED: METOLAZONE 2.5 MG TAB PO SCH (16:45)
[2018-01-11 16:50] LABS: OSMOLALITY,URINE 148 mOms/kg (500-800)
[2018-01-11 17:01] LABS: CREATININE RANDOM URINE < 13.0 mg/dl
[2018-01-11] MEDS ORDERED: DIPHENOXYLATE/ATROPINE 2.5/0.025MG TAB PO PRN (18:30)
[2018-01-11] MEDS ORDERED: LOPERAMIDE HCL 2 MG CAP PO PRN (18:30)
[2018-01-11] MEDS ORDERED: OXYCODONE HCL IR 5 MG TAB (IMMEDIATE RELEASE) ONE (18:33)
[2018-01-11 19:36] VITALS: BP 125/75; PULSE 62; TEMP 36.7; O2SAT 97
[2018-01-11] MEDS ORDERED: ONDANSETRON 8 MG TAB PO PRN (20:00)
[2018-01-11] MEDS ORDERED: LORA1POW2 PO (20:23)
[2018-01-11] MEDS ORDERED: ATV5X PO (20:24)
[2018-01-11] MEDS: FLUTICASONE/SALMETEROL 250/50 (ADVAIR) 14 PUFF/1 INHALER INH SCH (20:56)
[2018-01-11] MEDS: TRAZODONE HCL 100 MG TAB PO SCH (20:58)
[2018-01-11] MEDS: AMITRIPTYLINE HCL 50 MG TAB PO SCH (21:01)
[2018-01-11] MEDS: POTASSIUM CHLORIDE 10 MEQ TABCR PO SCH (21:01)
[2018-01-11] MEDS: METOPROLOL TARTRATE 100 MG TAB PO SCH (21:02)
[2018-01-11] MEDS: ATORVASTATIN 40 MG TAB PO SCH (21:02)
[2018-01-11] MEDS: FUROSEMIDE 40 MG TAB PO SCH (21:02)
[2018-01-11] MEDS: RANITIDINE HCL 150 MG TAB PO SCH (21:03)
[2018-01-11] MEDS: GABAPENTIN 800 MG TAB PO SCH (21:03)
[2018-01-11] MEDS: OLANZAPINE 2.5 MG TAB PO SCH (21:05)
[2018-01-11] MEDS: LORAZEPAM 0.5 MG TAB PO PRN (21:06)
[2018-01-11] MEDS: INSULIN GLARGINE SOLOSTAR 100 UNITS/ML 3 ML PEN SC SCH (21:09)
--- NOTE | 2018-01-11 21:11 | History and Physical ---
History & Physical Date & Time of Service: Jan 11, 2018 at ~ 14:00 , Chief Complaint: chest pain . Primary Care Physician: Manoj Goins D.O. . History of Present Illness Source: patient, clinic records, hospital records 62-year-old female followed by Dr. Goins. Cardiac catheterization 2004 demonstrated small caliber distal vessels without obstructive disease. History of atrial flutter, status post ablation. History of mitral valve fibroblastoma, status post mitral valve repair. Presented to ED today with chest pain. Chest pain initially occurred at rest while watching TV. Pain described as intermittently dull and sharp. No radiation. It was associated with mild dyspnea and nausea. No palpitations or edema. Symptoms were intermittent throughout the day yesterday, and then occurred again this morning upon rising. Episode this morning lasted for about 45 minutes. Did not take nitroglycerin or other medications. Pain-free at time of my assessment. . Past Medical/Surgical History Chronic and Resolved Medical Problems: (1) Asthma Status: Chronic (2) Atrial fibrillation Status: Chronic (3) Bipolar disorder Status: Chronic (4) CHF (congestive heart failure) Status: Chronic (5) Chronic cor pulmonale Status: Chronic (6) Chronic pain Status: Chronic (7) Chronic respiratory failure Status: Chronic (8) COPD, severe Status: Chronic (9) Cor pulmonale (chronic) Status: Chronic (10) Depression Status: Chronic (11) DM type 2 (diabetes mellitus, type 2) Status: Chronic (12) Gastroparesis Status: Chronic (13) GERD (gastroesophageal reflux disease) Status: Chronic (14) History of Clostridium difficile infection Status: Chronic (15) History of DVT (deep vein thrombosis) Status: Chronic (16) HTN (hypertension) Status: Chronic (17) Hypothyroidism Status: Chronic (18) DARIUS on CPAP Status: Chronic (19) Osteoarthritis Status: Chronic (20) PAF (paroxysmal atrial fibrillation) Status: Chronic Surgical Problems: (1) H/O: hysterectomy Status: Chronic (2) Hx of appendectomy Status: Chronic (3) Hx of cholecystectomy Status: Chronic (4) Hx of lumpectomy Status: Chronic (5) 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 Status: Chronic (6) Hx of tubal ligation Status: Chronic (7) Hx of umbilical hernia repair Status: Chronic . Family History Diabetes mellitus MOTHER FH: Crohn's disease SISTER Hypertension MOTHER Social History Smoking Status: Current Every Day Smoker Alcohol Use: none Drug Use: none Marital Status: Housing status: lives with significant other Occupational Status: disabled Immunizations History of Influenza Vaccine: Yes Influenza Vaccine Date: May 30, 2015 History of Tetanus Vaccine?: Yes Tetanus Immunization Date: Apr 22, 2006 History of Pneumococcal: Yes Pneumococcal Date: Mar 24, 2015 History of Hepatitis B Vaccine: Yes Hepatitis Immunization Date: Feb 28, 2014 Allergies Coded Allergies: BEE STING (Verified Allergy, Severe, SWELLING, 01/11/18) Lisinopril (Verified Allergy, Intermediate, FACE SWELLING, 01/11/18) Potato (Verified Allergy, Intermediate, BBQ chips - facial swelling, ) Metronidazole (Verified Allergy, Mild, FACE SWELLING, 01/11/18) [place] (Verified Allergy, Mild, HIVES, 01/11/18) Alprazolam (Verified Allergy, Unknown, RED FACE, FACE SWELLING, 01/11/18) Lactose (Verified Adverse Reaction, Intermediate, VOMTING DIARRHEA ABDOMINAL PAIN, 01/11/18) Prednisone (Verified Adverse Reaction, Mild, unknown, 01/11/18) Colesevelam (Verified Adverse Reaction, Unknown, unknown, 01/11/18) [place] (Verified Adverse Reaction, Unknown, jitters, 01/11/18) Home Medications Scheduled Amitriptyline HCl (Amitriptyline HCl), 50 MG PO HS Amlodipine Besylate (Amlodipine Besylate), 10 MG PO QAM Atorvastatin (Lipitor), 40 MG PO HS Calcitriol (Calcitriol), 0.5 MCG PO 3XWK Cetirizine (Zyrtec), 10 MG PO QAM Cholecalciferol (Vitamin D3), 1,000 UNITS PO QAM Docusate Sodium (Docusate Sodium), 100 MG PO DAILY Fentanyl (Duragesic), 50 MCG TOP [id number] Fluticasone Prop/Salmeterol (Advair Diskus 250/50 60 Dose), 1 PUFF INH BID Furosemide (Furosemide), 40 MG PO BID Gabapentin (Gabapentin), 800 MG PO TID Home O2 Therapy (Oxygen), 3 LITERS NA CONTINOUS Insulin Glargine (Lantus Solostar), 16 UNITS SC BID Lorazepam (Lorazepam), 0.5 MG PO HS Metolazone (Metolazone), 2.5 MG PO UD Metoprolol Tartrate (Lopressor) (Lopressor), 100 MG PO BID Multiple Vitamin (Multivitamin), 1 TAB PO QAM Mupirocin 2% (Bactroban 2%), 1 APPLN EXT BID Olanzapine (Olanzapine), 2.5 MG PO HS Pantoprazole (Protonix), 40 MG PO QAM Potassium Chloride (Micro-K Ext Rel), 10 MEQ PO BID Ranitidine Hcl (Ranitidine Hcl), 300 MG PO HS Spironolactone (Aldactone), 12.5 MG PO QAM Tiotropium [place] (Spiriva Handihaler), 1 CAP INH QAM Trazodone Hcl (Desyrel), 200 TAB PO HS Venlafaxine Hcl (Effexor Extended Rel), 225 MG PO QAM Venlafaxine Hcl (Effexor Extended Rel), 150 MG PO DAILY Warfarin Sod (Jantoven), 5 MG PO 2XWK Warfarin Sodium (Warfarin Sodium), 7.5 MG PO 5XWK Scheduled PRN Albuterol Sulf (Proventil 0.083% 2.5MG/3ML), 2.5 MG INH Q6H PRN for SOB/Wheezing Diphenoxylate/Atropine (Lomotil), 1 TAB PO BID PRN for Diarrhea Epinephrine (Epipen), 0.3 MG IM UD PRN for ALLERGIC REACTION Loperamide Hcl (Imodium), 2 MG PO BID PRN for Diarrhea Ondansetron Hcl (Zofran), 8 MG PO BID PRN for Nausea Oxycodone HCl (Oxycodone HCl), 10 MG PO Q6 PRN for Pain Polyethylene Glycol 3350 (Miralax), 17 GM PO DAILY PRN for Constipation Review of Systems CONSTITUTIONAL no fever wt fluctuates EYES no acute visual changes EARS, NOSE, MOUTH, AND THROAT nasal congestion no hearing loss no sinus symptoms no pharyngitis CARDIOVASCULAR as noted above in HPI RESPIRATORY chronic BREAUX home O2 3 LPM GASTROINTESTINAL no nausea or vomiting no diarrhea no constipation no melena or hematochezia GENITOURINARY no dysuria no hematuria MUSCULOSKELETAL left wrist pain after injury no myalgias INTEGUMENTARY no rash no new / changing lesions NEUROLOGIC chronic headaches no focal neurologic symptoms PSYCHIATRIC anxiety & depression ENDOCRINE blood sugars well-controlled no polyuria or polydipsia HEMATOLOGIC / LYMPHATIC bruises easily no adenopathy . Physical Exam Vital Signs Date Time Temp Pulse Resp B/P (MAP) Pulse Ox O2 Delivery O2 Flow Rate FiO2 01/11/18 19:36 36.7 62 18 125/75 (92) 97 Nasal Cannula 3.0 01/11/18 15:30 96 Nasal Cannula 3.0 01/11/18 15:29 36.8 62 20 126/76 (93) 96 Nasal Cannula 3.0 01/11/18 13:52 36.7 67 21 143/80 (101) 95 Nasal Cannula 01/11/18 13:22 61 17 151/84 97 01/11/18 13:02 61 17 151/84 97 Nasal Cannula 3.0 01/11/18 12:38 61 14 97 Nasal Cannula 3.0 01/11/18 12:37 97 Nasal Cannula 3.0 01/11/18 12:33 66 12 97 Nasal Cannula 3.0 01/11/18 12:31 164/78 01/11/18 12:03 65 19 96 Nasal Cannula 3.0 01/11/18 12:01 155/68 01/11/18 11:41 96 Nasal Cannula 3.0 01/11/18 11:35 69 01/11/18 11:32 97 Nasal Cannula 3.0 01/11/18 11:32 64 12 140/79 96 Nasal Cannula 3.0 01/11/18 11:32 96 Nasal Cannula 3.0 01/11/18 11:05 36.5 70 20 156/75 93 Room Air CONSTITUTIONAL vital signs as noted above obese, well-nourished, no acute distress EYES conjunctivae clear; lids normal pupils equal and reactive to light EARS, NOSE, MOUTH AND THROAT external inspection of ears and nose unremarkable hearing grossly intact to spoken voice edentulous, upper dentures oropharynx clear NECK no masses; trachea midline thyroid normal RESPIRATORY normal respiratory effort; no respiratory distress clear to percussion diffuse mild wheezing CARDIOVASCULAR regular rate and rhythm no murmur, gallop, rub appreciated + JVD carotid arteries 2/2; no bruits appreciated abdominal aorta not palpable pedal pulses intact and symmetric capillary refill toes < 2 seconds trace pretibial edema GASTROINTESTINAL normal bowel sounds, soft, nontender; no palpable masses no hepatomegaly; no splenomegaly LYMPHATIC no cervical adenopathy MUSCULOSKELETAL no cyanosis no calf tenderness motor strength extremities grossly intact SKIN venous stasis dermatitis lower extremities warm and dry NEUROLOGIC PERRL, EOMI, no facial palsy, no dysarthria, tongue midline patellar DTR's 1/2 PSYCHIATRIC oriented to person, place, time mood and affect appropriate . Diagnostics Laboratory Results Results Past 24 Hours Test 01/11/18 11:25 01/11/18 11:45 01/11/18 15:40 01/11/18 16:33 Range/Units White Blood Count 8.62 4.8-10.8 K/uL Red Blood Count 4.23 4.2-5.4 M/uL Hemoglobin 12.8 12.0-16.0 g/dL Hematocrit 36.3 37-47 % Mean Corpuscular Volume 85.8 80-100 fL Mean Corpuscular Hemoglobin 30.3 25-34 pg Mean Corpuscular Hemoglobin Concent 35.3 32-36 g/dl RDW Standard Deviation 44.4 36.4-46.3 fL RDW Coefficient of Variation 14.2 11.5-14.5 % Platelet Count 342 130-400 K/uL Mean Platelet Volume 8.6 7.4-10.4 fL Prothrombin Time 23.2 9.0-12.0 SECONDS Prothromb Time International Ratio 2.2 0.9-1.1 Activated Partial Thromboplast Time 37.5 21.0-31.0 SECONDS Partial Thromboplastin Ratio 1.4 Sodium Level 124 136-145 mmol/L Potassium Level 3.1 3.5-5.1 mmol/L Chloride Level 83 98-107 mmol/L Carbon Dioxide Level 37 21-32 mmol/L Anion Gap 4.0 3-11 mmol/L Blood Urea Nitrogen 22 7-18 mg/dl Creatinine 1.14 0.60-1.20 mg/dl Est Creatinine Clear Calc Drug Dose 58.9 ml/min Estimated GFR () 60.1 Estimated GFR (Non- 51.9 BUN/Creatinine Ratio 19.4 10-20 Random Glucose 186 70-99 mg/dl Calcium Level 9.2 8.5-10.1 mg/dl Total Bilirubin 0.4 0.2-1 mg/dl Aspartate Amino Transf (AST/SGOT) 30 15-37 U/L Alanine Aminotransferase (ALT/SGPT) 40 12-78 U/L Alkaline Phosphatase 86 45-117 U/L Total Creatine Kinase 290 26-192 U/L Creatine Kinase MB 1.3 0.5-3.6 ng/ml Creatine Kinase MB Ratio 0.4 0-3.0 Total Protein 7.6 6.4-8.2 gm/dl Albumin 3.3 3.4-5.0 gm/dl Globulin 4.3 2.5-4.0 gm/dl Albumin/Globulin Ratio 0.8 0.9-2 Bedside Troponin I < 0.030 0-0.045 ng/ml Urine Color YELLOW Urine Appearance CLEAR CLEAR Urine pH 7.0 4.5-7.5 Urine Specific [place] 1.008 1.000-1.030 Urine Protein NEG NEG Urine Glucose (UA) NEG NEG Urine Ketones NEG NEG Urine Occult Blood NEG NEG Urine Nitrite NEG NEG Urine Bilirubin NEG NEG Urine Urobilinogen NEG NEG Urine Leukocyte Esterase NEG NEG Urine WBC (Auto) 0 0-5 /hpf Urine RBC (Auto) 0-4 0-4 /hpf Urine Hyaline Casts (Auto) 0 0-5 /lpf Urine Epithelial Cells (Auto) 5-10 0-5 /lpf Urine Bacteria (Auto) NEG NEG Urine Osmolality 148 500-800 mOms/kg Urine Random Creatinine < 13.0 mg/dl Urine Random Sodium 33 mEq/L Bedside Glucose 171 70-90 mg/dl Diagnostic Radiology SINGLE VIEW CHEST FINDINGS: An AP, portable, upright chest radiograph is compared to study dated 11/22/2017 and correlated with chest CT dated 11/16/2017. The examination is degraded by portable technique and patient rotation. There is evidence of previous mitral valve surgery. The heart is enlarged and there is atherosclerotic calcification of the thoracic aorta. There is pulmonary vascular congestion with evidence of interstitial edema. Emphysema and chronic interstitial thickening are similar to previous. Bibasilar atelectasis is observed. No large pleural effusion is identified. No pneumothorax is seen. The skeletal structures are osteopenic. The bony thorax is grossly intact. Surgical clips project over the right axilla. IMPRESSION: 1. Cardiomegaly with evidence of congestive failure and interstitial edema. 2. No large pleural effusion is identified. 3. Emphysema. Electronically signed by: Jame Batres M.D. 01/11/2018 12:18 PM Dictated Date/Time: 01/11/2018 12:17 PM . EKG EKG performed at 11:12 reviewed and demonstrated NSR at 70 / minute, first degree AV block, RBBB, NSSTTWA's.. . Impression Assessment and Plan CHEST PAIN Atypical chest pain as described in HPI. Troponin in ED negative. Cardiac catheterization 2004 demonstrated small caliber distal vessels without obstructive disease. Check serial troponins. Consult Cardiology. CHF Chest x-ray shows cardiomegaly and pulmonary edema. Echocardiogram performed 05/06/17 demonstrated mild concentric LVH, LVEF 65-70%, no segmental wall motion abnormalities, normal size and systolic function of right ventricle. On aggressive diuretic therapy (with hyponatremia). Consult Cardiology. HISTORY ATRIAL FIBRILLATION / FLUTTER Currently in NSR. Continue metoprolol and warfarin. HYPERTENSION Continue metoprolol and amlodipine. COPD / COR PULMONALE / CHRONIC HYPOXIC RESPIRATORY FAILURE Continue inhalers and nebs. Continue supplemental O2. SLEEP APNEA HYPONATREMIA Serum sodium 124. Appears to be fluid over-loaded. Likely contributing factors include: diuretic therapy, excessive free water intake, SIADH from pulm disease and/or meds. Hold metolazone. 1500 fluid restriction. DM TYPE 2 Usually well-controlled with Lantus. Check Hgb A1C. Continue Lantus; add NovoLog if necessary. HYPOTHYROIDISM Listed as diagnosis in medical record, but not on levothyroxine. Check TSH. DEPRESSION Continue usual meds. VTE PROPHYLAXIS / HISTORY DVT Continue warfarin. RESUSCITATION STATUS Full resuscitation. DISPOSITION Expected discharge to home. Internal Medicine follow-up with Dr. Goins. . Advanced Directives Existing Living Will: No Existing Power of Aircraft Cleaner: No Resuscitation Status VTE Prophylaxis Will order VTE Prophylaxis: Yes
[2018-01-11 23:45] VITALS: BP 105/53; PULSE 64; TEMP 36.9; O2SAT 97
[2018-01-12] MEDS: CHECK FENTANYL PATCH PLACEMENT SCH ×4 (00:01→23:54)
[2018-01-12 03:40] VITALS: BP 107/66; PULSE 55; TEMP 36.9; O2SAT 95
[2018-01-12 07:20] LABS: INR 1.6 (0.9-1.1)
[2018-01-12] MEDS ORDERED: GLUCAGON FOR INJ 1 MG VIAL SQ PRN (07:30)
[2018-01-12] MEDS ORDERED: DEXTROSE 50% 50 ML SYR IV PRN (07:30)
[2018-01-12] MEDS ORDERED: GLUCOSE 40% GEL 15 GM TUBE PO PRN (07:30)
[2018-01-12] MEDS ORDERED: GLUCOSE 10 TABS/TUBE PO PRN (07:30)
[2018-01-12] MEDS ORDERED: WARFARIN SOD 5 MG TAB PO ONE (07:45)
[2018-01-12 07:47] LABS: BLOOD UREA NITROGEN 28 mg/dl (7-18); CALCIUM 9.2 mg/dl (8.5-10.1); CARBON DIOXIDE 38 mmol/L (21-32); CREATININE 1.28 mg/dl (0.60-1.20); GLUCOSE 131 mg/dl (70-99); POTASSIUM 3.1 mmol/L (3.5-5.1); SODIUM 136 mmol/L (136-145)
[2018-01-12] MEDS: TIOTROPIUM BROMIDE 5 PUFF/90 MCG INH INH SCH (07:47)
[2018-01-12] MEDS: FLUTICASONE/SALMETEROL 250/50 (ADVAIR) 14 PUFF/1 INHALER INH SCH ×2 (07:47→20:49)
[2018-01-12] MEDS: FUROSEMIDE 40 MG TAB PO SCH ×2 (07:48→20:49)
[2018-01-12] MEDS: GABAPENTIN 800 MG TAB PO SCH ×3 (07:48→20:50)
[2018-01-12] MEDS: POTASSIUM CHLORIDE 10 MEQ TABCR PO SCH (07:48)
[2018-01-12] MEDS: AMLODIPINE BESYLATE 5 MG TAB PO SCH (07:48)
[2018-01-12] MEDS: METOPROLOL TARTRATE 100 MG TAB PO SCH ×2 (07:48→20:50)
[2018-01-12] MEDS: SPIRONOLACTONE 25 MG TAB PO SCH (07:49)
[2018-01-12] MEDS: PANTOprazole SOD 40 MG TAB PO SCH (07:49)
[2018-01-12] MEDS: CETIRIZINE HCL 10 MG TAB PO SCH (07:49)
[2018-01-12] MEDS: CHOLECALCIFEROL 1000 INTER.UNIT TAB PO SCH (07:49)
[2018-01-12] MEDS: VENLAFAXINE HCL XR 75 MG CAPXR PO SCH (07:50)
[2018-01-12] MEDS: MULTIVITAMIN TAB PO SCH (07:50)
[2018-01-12] MEDS: DOCUSATE SODIUM 100 MG CAP PO SCH (07:50)
[2018-01-12] MEDS: INSULIN GLARGINE SOLOSTAR 100 UNITS/ML 3 ML PEN SC SCH ×2 (07:51→20:53)
[2018-01-12] MEDS: OXYCODONE HCL IR 5 MG TAB (IMMEDIATE RELEASE) PO PRN ×2 (07:54→17:02)
[2018-01-12] MEDS: NICOTINE 7 MG/24 HR TDSY TD SCH (08:07)
[2018-01-12 08:18] VITALS: BP 119/71; PULSE 62; TEMP 36.8; O2SAT 94
[2018-01-12] MEDS ORDERED: CALCITRIOL 0.5 MCG CAP PO SCH (09:00)
[2018-01-12] MEDS ORDERED: VENLAFAXINE HCL XR 150 MG CAPXR PO SCH (09:00)
[2018-01-12] MEDS ORDERED: ENOXAPARIN 40 MG/0.4 ML SYR SQ ONE (09:00)
[2018-01-12] MEDS: POTASSIUM CHLORIDE 20 MEQ TABCR PO SCH ×2 (09:04→20:49)
[2018-01-12 09:17] LABS: HEMOGLOBIN A1C 8.2 % (4.5-5.6)
--- NOTE | 2018-01-12 10:42 | Cardiology Consultation ---
Cardiology Consultation Date of Consultation: Jan 12, 2018 Requesting Physician: Danny Attending Back Gray Cloth Washer: Harsh (Javan Maravilla PA-C) History of Present Illness Mrs. Minaya is a complex 62-year-old female who is being seen at the request of Dr. Delgado. Reason for consultation is congestive heart failure. Mrs. Minaya presented to the emergency room at [facility] on January 11, 2018 with complaints of chest discomfort as well as left wrist pain. She notes onset of nonradiating left anterior chest pain while lying down watching the baseball game Friday She describes it as an annoying, sharp discomfort. This was present all day Friday and again yesterday morning. Symptoms seemed to improve when she stood up and became worse with movement of her torso. She notes being less concerned regarding the chest discomfort and more concerned regarding the left wrist pain which has been present for the last 3 months. She states that she was diagnosed with a left wrist strain and was referred to physical therapy which seemed to aggravate the discomfort. No exertional chest pain. No palpitations. Stable shortness of breath. Stable lightheadedness with quick positional changes. No dizziness. No near syncope or true syncope. No fevers or chills. + diarrhea. No melena or hematochezia. No hematuria or dysuria. EKG on presentation revealed sinus rhythm at 73 bpm with a first-degree AV block , possible left atrial enlargement, right bundle branch block, T-wave abnormality-consider inferior ischemia. When compared to prior EKG from November 22, 2017 inverted T waves replaced nonspecific T-wave abnormality in the inferior leads. Troponin negative 2. Laboratory work on presentation revealed marked hyponatremia with a sodium of 124 and hypokalemia with a potassium of 3.1. BUN and creatinine were 22 and 1.14. Calcium was 9.2. Chest x-ray was interpreted by the radiologist as demonstrating cardiomegaly with evidence of congestive heart failure and interstitial edema. No large pleural effusion was identified. Emphysema noted. Patient admits to excessive free water intake. She describes drinking at least three 12 ounce bottles of soda per day, three 16 ounce bottles of ice water per day, and also consuming alcohol. She notes drinking at least 2 drinks (rum plus diet soda) 3-4 days per week though apparently stopped last week. 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 June 13, 2005 cardiac catheterization at [facility] demonstrated a left dominant coronary system with small caliber distal vessels consistent with diabetic history, without obstructive disease. Symptomatic atrial flutter observed in February 2013, status post 03/16/2013 cardioversion, s/p atrial flutter ablation April 2017. 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 She has not been felt to be a great candidate for antiarrhythmic therapy due to QT prolongation from her psych medications. Severe chronic obstructive lung disease, advanced emphysema, chronic hypoxemia with supplemental oxygen therapy PRN during the day and QHS, cor pulmonale. DARIUS Anemia Hypertension Hyperlipidemia Type II diabetes mellitus with gastroparesis Stage III chronic kidney disease Left adrenal mass Obesity Bipolar disorder GERD Gastroparesis Hypothyroidism Osteoarthritis. Cervical disc disease Ear surgery Multiple colonoscopies with polypectomies I&D of a forearm/wrist lesion Right lumpectomy Cholecystectomy Tubal ligation Repair of an incarcerated incisional hernia, March 2009 Appendectomy Total hysterectomy Umbilical hernia repair (Javan Maravilla PA-C) Family History Diabetes mellitus MOTHER FH: Crohn's disease SISTER Hypertension MOTHER Family History: Positive for diabetes mellitus and hypertension. (Javan Maravilla PA-C) Diabetes mellitus MOTHER FH: Crohn's disease SISTER Hypertension MOTHER (Mc House M.D.) Social History Social History: Smoker. Currently smoking 10 cigarettes per day. She has smoked since the age of 13. Alcohol: 2+ shots of rum with diet soda 3-4 days per week, stopping last week. Denies illegal drug use. . One grown child. Disabled. Smoking Status: Current Every Day Smoker (Javan Maravilla PA-C) Review Of Systems General: No abrupt weight change. No fever or chills. Head: Chronic headaches. No head trauma. Cardiovascular: See above. Stable BREAUX. No orthopnea. No edema. No near syncope or syncope. Pulmonary: Smoker. COPD/Emphysema. + Chronic cough. + Wheezing. No hemoptysis. + DARIUS. Gastrointestinal: Diarrhea. Nausea. No vomiting. Skin: No rash. Musculoskeletal: Back pain. Neurological: No history of seizure Complete review of systems is otherwise as stated above, negative, or noncontributory. (Javan Maravilla PA-C) Allergies Coded Allergies: BEE STING (Verified Allergy, Severe, SWELLING, 01/11/18) Lisinopril (Verified Allergy, Intermediate, FACE SWELLING, 01/11/18) Potato (Verified Allergy, Intermediate, BBQ chips - facial swelling, ) Metronidazole (Verified Allergy, Mild, FACE SWELLING, 01/11/18) [place] (Verified Allergy, Mild, HIVES, 01/11/18) Alprazolam (Verified Allergy, Unknown, RED FACE, FACE SWELLING, 01/11/18) Lactose (Verified Adverse Reaction, Intermediate, VOMTING DIARRHEA ABDOMINAL PAIN, 01/11/18) Prednisone (Verified Adverse Reaction, Mild, unknown, 01/11/18) Colesevelam (Verified Adverse Reaction, Unknown, unknown, 01/11/18) [place] (Verified Adverse Reaction, Unknown, jitters, 01/11/18) Medications Reported Home Medications Medications Dose Route/Sig Max Daily Dose Days Date Category Dose Instructions Lorazepam 0.5 Mg Tab 0.5 Mg PO HS 01/11/18 Reported Effexor Extended Rel (Venlafaxine Hcl) 150 Mg Capcr 150 Mg PO DAILY 01/11/18 Reported take 150 mg pill with 75 mg pill for total of 225 mg daily Ranitidine Hcl 300 Mg Cap 300 Mg PO HS 01/11/18 Reported Furosemide 40 Mg Tab 40 Mg PO BID 01/11/18 Reported Zofran (Ondansetron HCl) 8 Mg Tab 8 Mg PO BID PRN 12/07/17 Reported Imodium (Loperamide HCl) 2 Mg Cap 2 Mg PO BID PRN 12/07/17 Reported Lomotil (Diphenoxylate HCl/Atropine) Tab 1 Tab PO BID PRN 12/07/17 Reported Bactroban 2% (Mupirocin) 30 Gm Cr 1 Appln EXT BID 12/07/17 Reported Miralax (Polyethylene Glycol 3350) 1 Pow Pow 17 Gm PO DAILY PRN 12/07/17 Reported Proventil 0.083% 2.5MG/3ML (Albuterol Sulf) 2.5 Mg/3 Ml Nebu 2.5 Mg INH Q6H PRN 12/07/17 Reported Vitamin D3 (Cholecalciferol) 1,000 Inter.unit Tab 1,000 Units PO QAM 10/22/17 Reported Metolazone 2.5 Mg Tab 2.5 Mg PO UD 10/22/17 Reported Takes 30 minutes prior to Lasix on MON and FRI Oxycodone HCl 5 Mg Tab 10 Mg PO Q6 PRN 10/22/17 Reported Warfarin Sodium 7.5 Mg Tab 7.5 Mg PO 5XWK 10/22/17 Reported FRIDAY, FRIDAY, FRIDAY, FRIDAY, FRIDAY Desyrel (Trazodone Hcl) 100 Mg Tab 200 Tab PO HS 10/22/17 Reported Jantoven (Warfarin Sodium) 5 Mg Tab 5 Mg PO 2XWK 08/26/17 Reported FRIDAY, FRIDAY Aldactone (Spironolactone) 25 Mg Tab 12.5 Mg PO QAM 08/26/17 Reported Micro-K Ext Rel (Potassium Chloride) 10 Meq Capcr 10 Meq PO BID 08/26/17 Reported Docusate Sodium 100 Mg Cap 100 Mg PO DAILY 08/26/17 Reported AFTERNOON Duragesic (Fentanyl) 50 Mcg Tdsy 50 Mcg TOP [id number] 08/17/17 Reported Protonix (Pantoprazole Sodium) 40 Mg Tab 40 Mg PO QAM 05/05/17 Reported Lantus Solostar (Insulin Glargine) 100 Unit/Ml Inj 16 Units SC BID 05/05/17 Reported Lopressor (Metoprolol Tartrate) 100 Mg Tab 100 Mg PO BID 04/28/17 Reported Spiriva Handihaler (Tiotropium [place]) 30 Puff/540 Mcg Aerp 1 Cap INH QAM 10/18/16 Reported Olanzapine 2.5 Mg Tab 2.5 Mg PO HS 09/12/16 Reported Effexor Extended Rel (Venlafaxine Hcl) 75 Mg Capcr 225 Mg PO QAM 07/17/16 Reported take 150 mg pill with 75 mg pill for total of 225 mg daily Gabapentin 800 Mg Tab 800 Mg PO TID 07/17/16 Reported Amitriptyline HCl 50 Mg Tab 50 Mg PO HS 07/17/16 Reported Calcitriol 0.5 Mcg Cap 0.5 Mcg PO 3XWK 03/14/16 Reported TAKE THIS MEDICATION EVERY FRIDAY,FRIDAY AND FRIDAY Advair Diskus 250/50 60 Dose (Fluticasone Prop/Salmeterol) 1 Ea Aerp 1 Puff INH BID 07/24/15 Reported Amlodipine Besylate 10 Mg Tab 10 Mg PO QAM 05/25/14 Reported Lipitor (Atorvastatin Calcium) 40 Mg Tab 40 Mg PO HS 05/25/14 Reported Multivitamin (Multiple Vitamin) 1 Tab Tab 1 Tab PO QAM 12/24/13 Reported Epipen (Epinephrine) 0.3 Mg/0.3 Ml Inj 0.3 Mg IM UD PRN 12/24/13 Reported Zyrtec (Cetirizine HCl) 10 Mg Tab 10 Mg PO QAM 12/24/13 Reported Oxygen Gas 3 Liters NA CONTINOUS 07/05/12 Reported (Javan Maravilla PA-C) Physical Exam Vital Signs (Last 8hrs): Last 8 Hrs Date Time Temp Pulse Resp B/P (MAP) Pulse Ox O2 Delivery O2 Flow Rate FiO2 01/12/18 08:18 36.8 62 20 119/71 (87) 94 Nasal Cannula 2.0 01/12/18 08:04 Nasal Cannula 3.0 01/12/18 04:24 Nasal Cannula 3.0 01/12/18 04:00 Nasal Cannula 3.0 01/12/18 03:40 36.9 55 17 107/66 (80) 95 Nasal Cannula 2.0 General: NAD. Obese. HEENT: Normocephalic. PER. Conjunctiva pink, sclera pale. Neck: No JVD. Chest: There is reproducible chest wall pain left lateral to the sternum. Heart: Regular, 70 bpm. Soft apical systolic murmur. No diastolic murmur appreciated. Lungs: Diminished but clear throughout. Abdomen: Obese. +BS. Soft. Nontender. No overt organomegaly. Extremities: No edema. Chronic stasis changes bilaterally. No clubbing. No cyanosis. Neuro: No focal deficits. Psychiatric: Flat affect. (Javan Maravilla PA-C) Data Last 24 Hours Test 01/11/18 11:25 01/11/18 11:45 01/11/18 15:40 01/11/18 16:33 White Blood Count 8.62 K/uL Red Blood Count 4.23 M/uL Hemoglobin 12.8 g/dL Hematocrit 36.3 % Mean Corpuscular Volume 85.8 fL Mean Corpuscular Hemoglobin 30.3 pg Mean Corpuscular Hemoglobin Concent 35.3 g/dl RDW Standard Deviation 44.4 fL RDW Coefficient of Variation 14.2 % Platelet Count 342 K/uL Mean Platelet Volume 8.6 fL Prothrombin Time 23.2 SECONDS Prothromb Time International Ratio 2.2 Activated Partial Thromboplast Time 37.5 SECONDS Partial Thromboplastin Ratio 1.4 Sodium Level 124 mmol/L Potassium Level 3.1 mmol/L Chloride Level 83 mmol/L Carbon Dioxide Level 37 mmol/L Anion Gap 4.0 mmol/L Blood Urea Nitrogen 22 mg/dl Creatinine 1.14 mg/dl Est Creatinine Clear Calc Drug Dose 58.9 ml/min Estimated GFR () 60.1 Estimated GFR (Non- 51.9 BUN/Creatinine Ratio 19.4 Random Glucose 186 mg/dl Calcium Level 9.2 mg/dl Total Bilirubin 0.4 mg/dl Aspartate Amino Transf (AST/SGOT) 30 U/L Alanine Aminotransferase (ALT/SGPT) 40 U/L Alkaline Phosphatase 86 U/L Total Creatine Kinase 290 U/L Creatine Kinase MB 1.3 ng/ml Creatine Kinase MB Ratio 0.4 Total Protein 7.6 gm/dl Albumin 3.3 gm/dl Globulin 4.3 gm/dl Albumin/Globulin Ratio 0.8 Bedside Troponin I < 0.030 ng/ml Urine Color YELLOW Urine Appearance CLEAR Urine pH 7.0 Urine Specific [place] 1.008 Urine Protein NEG Urine Glucose (UA) NEG Urine Ketones NEG Urine Occult Blood NEG Urine Nitrite NEG Urine Bilirubin NEG Urine Urobilinogen NEG Urine Leukocyte Esterase NEG Urine WBC (Auto) 0 /hpf Urine RBC (Auto) 0-4 /hpf Urine Hyaline Casts (Auto) 0 /lpf Urine Epithelial Cells (Auto) 5-10 /lpf Urine Bacteria (Auto) NEG Urine Osmolality 148 mOms/kg Urine Random Creatinine < 13.0 mg/dl Urine Random Sodium 33 mEq/L Bedside Glucose 171 mg/dl Test 01/11/18 20:46 01/11/18 23:30 01/12/18 06:28 01/12/18 06:47 Bedside Glucose 187 mg/dl 139 mg/dl Troponin I < 0.015 ng/ml < 0.015 ng/ml Prothrombin Time 16.3 SECONDS Prothromb Time International Ratio 1.6 Sodium Level 136 mmol/L Potassium Level 3.1 mmol/L Chloride Level 93 mmol/L Carbon Dioxide Level 38 mmol/L Anion Gap 5.0 mmol/L Blood Urea Nitrogen 28 mg/dl Creatinine 1.28 mg/dl Est Creatinine Clear Calc Drug Dose 51.8 ml/min Estimated GFR () 52.2 Estimated GFR (Non- 45.1 BUN/Creatinine Ratio 21.6 Random Glucose 131 mg/dl Estimated Average Glucose 189 mg/dl Hemoglobin A1c 8.2 % Calcium Level 9.2 mg/dl Magnesium Level 2.2 mg/dl Pro-B-Type Natriuretic Peptide 387 pg/ml Thyroid Stimulating Hormone (TSH) 0.844 uIu/ml Telemetry: Sinus at 60 bpm. Bradycardia down to 48 bpm overnight. Occasional PVC in singles. No significant bradycardia. No pauses. No atrial fibrillation or flutter. No significant ventricular arrhythmias. I/O negative 1,860 mL's overall. (Javan Maravilla PA-C) Assessment & Plan Atypical chest pain. EKG's are without acute change. Cardiac enzymes negative. Reproducible with palpation of the chest wall. Prior catheterization on June 13, 2005 showed left dominant coronary anatomy with small caliber distal vessels, consistent with diabetic history - without obstructive disease. Note: Patient is unable to ambulate adequately for exercise stress testing and was previously felt to be a poor candidate for pharmacological stress test. Continue medical management. Right heart failure, cor pulmonale physiology. Compensated volume status currently. Recommend reduction in metolazone dosing back to one day per week given examination findings, hyponatremia and hypokalemia on presentation. Increase spironolactone to 25 mg/day. Continue furosemide at 40 mg twice per day. Hyponatremia. Likely secondary to Metolazone and her excessive free water consumption. Decrease metolazone back to once a day. Reduction in free water discussed. Patient to avoid alcohol. Hypokalemia. Supplemental potassium orally. Status post atrial flutter ablation. Maintaining sinus rhythm. 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 (Javan Maravilla PA-C) Patient was seen and personally examined. Assessment and plan as outlined above. Chest pain appears noncardiac, with hyponatremia multifactorial including dietary indiscretion as well as depressions/psychiatric medications contributing to issue. Patient overall improving Mc House MD (Mc House M.D.)
[2018-01-12] MEDS: INSULIN ASPART 100 UNITS/ML 3 ML PEN SC SCH ×3 (12:00→20:53)
[2018-01-12] MEDS ORDERED: POTASSIUM CHLORIDE 20 MEQ TABCR PO ONE (12:00)
[2018-01-12 12:15] VITALS: BP 145/85; PULSE 60; TEMP 36.3; O2SAT 96
[2018-01-12] MEDS ORDERED: FENTANYL PATCH REMOVE & WASTE SCH (14:59)
[2018-01-12] MEDS ORDERED: FENTANYL 50 MCG/HR TDSY TD SCH (15:00)
[2018-01-12 15:25] VITALS: BP 115/69; PULSE 62; TEMP 36.8; O2SAT 96
[2018-01-12] MEDS ORDERED: WARFARIN SOD 7.5 MG TAB PO SCH (16:00)
--- NOTE | 2018-01-12 19:02 | Progress Note ---
Medicine Progress Note Date & Time of Visit: Jan 12, 2018 at 16:40 . Subjective CC: Follow-up visit for chest pain, CHF, hyponatremia, and other problems. HPI: Feels somewhat better. Chest pain resolved. Less short of breath. Minimal cough. ROS: General- no fever, no chills Resp- as noted above in HPI Cardiac- as noted above in HPI GI- no nausea, no vomiting, no diarrhea, no constipation - no dysuria, no difficulty voiding . Objective Last 8 Hrs Date Time Temp Pulse Resp B/P (MAP) Pulse Ox O2 Delivery O2 Flow Rate FiO2 01/12/18 15:25 36.8 62 20 115/69 (84) 96 Nasal Cannula 3.0 01/12/18 15:15 Nasal Cannula 3.0 01/12/18 12:15 36.3 60 18 145/85 (105) 96 Nasal Cannula 3.0 01/12/18 12:03 Nasal Cannula 3.0 Physical Exam: General- lying in bed, no distress Lungs- diffuse mild wheezing; no respiratory distress Cardiovascular- RRR; no murmur or gallop appreciated; + JVD; 1+ pretibial edema Abdomen- + bowel sounds, soft, nontender Extremities- no cyanosis; no calf tenderness; chronic venous stasis changes of lower extremities Neuro- alert, oriented Skin- warm & dry . Laboratory Results: Last 24 Hours Test 01/11/18 20:46 01/11/18 23:30 01/12/18 06:28 01/12/18 06:47 Bedside Glucose 187 mg/dl 139 mg/dl Troponin I < 0.015 ng/ml < 0.015 ng/ml Prothrombin Time 16.3 SECONDS Prothromb Time International Ratio 1.6 Sodium Level 136 mmol/L Potassium Level 3.1 mmol/L Chloride Level 93 mmol/L Carbon Dioxide Level 38 mmol/L Anion Gap 5.0 mmol/L Blood Urea Nitrogen 28 mg/dl Creatinine 1.28 mg/dl Est Creatinine Clear Calc Drug Dose 51.8 ml/min Estimated GFR () 52.2 Estimated GFR (Non- 45.1 BUN/Creatinine Ratio 21.6 Random Glucose 131 mg/dl Estimated Average Glucose 189 mg/dl Hemoglobin A1c 8.2 % Calcium Level 9.2 mg/dl Magnesium Level 2.2 mg/dl Pro-B-Type Natriuretic Peptide 387 pg/ml Thyroid Stimulating Hormone (TSH) 0.844 uIu/ml Test 01/12/18 11:02 01/12/18 16:26 Bedside Glucose 310 mg/dl 102 mg/dl Assessment & Plan CHEST PAIN Atypical chest pain as described in HPI. Troponins negative x 3. Cardiac catheterization 2004 demonstrated small caliber distal vessels without obstructive disease. Cardiology consulted. CHF Chest x-ray shows cardiomegaly and pulmonary edema. Echocardiogram performed 05/06/17 demonstrated mild concentric LVH, LVEF 65-70%, no segmental wall motion abnormalities, normal size and systolic function of right ventricle. On aggressive diuretic therapy (with hyponatremia). Cardiology consulted. Metolazone discontinued because of severe hyponatremia. Continue furosemide and spironolactone. HISTORY ATRIAL FIBRILLATION / FLUTTER Currently in NSR. Continue metoprolol and warfarin. HYPERTENSION Continue metoprolol and amlodipine. COPD / COR PULMONALE / CHRONIC HYPOXIC RESPIRATORY FAILURE Continue inhalers and nebs. Continue supplemental O2. HYPONATREMIA Serum sodium 124 at time of admission. Appears to be fluid over-loaded. Likely contributing factors include: diuretic therapy, excessive free water intake, SIADH from pulm disease and/or meds. Metolazone discontinued. 1500 fluid restriction. Serum sodium today = 136. HYPOKALEMIA Serum potassium today = 3.1. Replace, follow. DM TYPE 2 Usually well-controlled with Lantus. Hgb A1C = 8.2. Continue Lantus and NovoLog. Fasting blood sugar this morning = 139. HYPOTHYROIDISM Listed as diagnosis in medical record, but levothyroxine not noted on clinic medication list or ED medication reconciliation. TSH 0.844. Appears most likely that his levothyroxine inadvertently dropped off medication list, but should be continued. Resume levothyroxine 50 mcg daily. DEPRESSION Continue usual meds. VTE PROPHYLAXIS / HISTORY DVT Continue warfarin. RESUSCITATION STATUS Full resuscitation. DISPOSITION Expected discharge to home. Internal Medicine follow-up with Dr. Goins. . Current Inpatient Medications: Current Inpatient Medications Medications (Trade) Dose Ordered Sig/Artemio Route Start Time Stop Time Status Last Admin Dose Admin Acetaminophen (Tylenol Tab) 650 mg Q4H PRN PO 01/11/18 12:45 02/10/18 12:44 Albuterol Sulfate (Ventolin 0.083% 2.5MG/3ML Neb) 2.5 mg Q6H PRN INH 01/11/18 16:45 02/10/18 16:44 Amitriptyline HCl (Elavil Tab) 50 mg HS PO 01/11/18 21:00 02/10/18 20:59 01/11/18 21:01 50 MG Atorvastatin Calcium (Lipitor Tab) 40 mg HS PO 01/11/18 21:00 02/10/18 20:59 01/11/18 21:02 40 MG Calcitriol (Rocaltrol Cap) 0.5 mcg MoWeFr@0900 PO 01/12/18 09:00 02/11/18 08:59 01/12/18 07:50 0.5 MCG Cetirizine HCl (zyrTEC TAB) 10 mg QAM PO 01/12/18 09:00 02/11/18 08:59 01/12/18 07:49 10 MG Cholecalciferol (Vitamin D Tab) 1,000 inter.unit QAM PO 01/12/18 09:00 02/11/18 08:59 01/12/18 07:49 1,000 INTER.UNIT Diphenoxylate HCl/ Atropine (Lomotil Tab) 1 tab BID PRN PO 01/11/18 18:30 02/10/18 18:29 01/12/18 07:49 1 TAB Docusate Sodium (coLACE CAP) 100 mg DAILY PO 01/12/18 09:00 02/11/18 08:59 Fentanyl (Duragesic Patch) 50 mcg Q72H TD 01/12/18 15:00 01/26/18 14:59 01/12/18 15:15 50 MCG Salmeterol Xinafoate/ Fluticasone (Advair Diskus 250/50 Inh) 1 puff BID INH 01/11/18 21:00 02/10/18 20:59 01/12/18 07:47 1 PUFF Furosemide (Lasix Tab) 40 mg BID PO 01/11/18 21:00 02/10/18 20:59 01/12/18 07:48 40 MG Gabapentin (Neurontin Tab) 800 mg TID PO 01/11/18 21:00 02/10/18 20:59 01/12/18 14:16 800 MG Insulin Glargine (Lantus Solostar Pen) 16 units BID SC 01/11/18 21:00 02/10/18 20:59 01/12/18 07:51 16 UNITS Loperamide HCl (Imodium Cap) 2 mg BID PRN PO 01/11/18 18:30 02/10/18 18:29 01/12/18 07:50 2 MG Metoprolol Tartrate (Lopressor Tab) 100 mg BID PO 01/11/18 21:00 02/10/18 20:59 01/12/18 07:48 100 MG Multivitamins (Multivitamin Tab) 1 tab QAM PO 01/12/18 09:00 02/11/18 08:59 01/12/18 07:50 1 TAB Olanzapine (Zyprexa Tab) 2.5 mg HS PO 01/11/18 21:00 02/10/18 20:59 01/11/18 21:05 2.5 MG Ondansetron HCl (Zofran Tab) 8 mg BID PRN PO 01/11/18 20:00 02/10/18 19:59 01/12/18 07:49 8 MG Oxycodone HCl (Roxicodone Immediate Rel Tab) 10 mg Q6 PRN PO 01/11/18 16:45 01/25/18 16:44 01/12/18 17:02 10 MG Pantoprazole Sodium (Protonix Tab) 40 mg QAM PO 01/12/18 09:00 02/11/18 08:59 01/12/18 07:49 40 MG Spironolactone (Aldactone Tab) 12.5 mg QAM PO 01/12/18 09:00 02/11/18 08:59 01/12/18 07:49 12.5 MG Tiotropium [place] (Spiriva Handihaler Inhaler) 1 puff QAM INH 01/12/18 09:00 02/11/18 08:59 01/12/18 07:47 1 PUFF Trazodone HCl (Desyrel Tab) 200 mg HS PO 01/11/18 21:00 02/10/18 20:59 01/11/18 20:58 200 MG Venlafaxine HCl (effeXOR EXTENDED REL CAP) 225 mg QAM PO 01/12/18 09:00 02/11/18 08:59 01/12/18 07:50 225 MG Warfarin Sodium (Coumadin Tab) 5 mg SuTh@1600 PO 01/15/18 16:00 02/14/18 15:59 Warfarin Sodium (Coumadin Tab) 7.5 mg MoTuWeFrSa@1600 PO 01/12/18 16:00 02/11/18 15:59 01/12/18 16:05 7.5 MG Amlodipine Besylate (Norvasc Tab) 10 mg QAM PO 01/12/18 09:00 02/11/18 08:59 01/12/18 07:48 10 MG Polyethylene (Miralax Powder Packet) 17 gm DAILY PRN PO 01/11/18 16:45 02/10/18 16:44 Ranitidine HCl (zANTac TAB) 300 mg HS PO 01/11/18 21:00 02/10/18 20:59 01/11/18 21:03 300 MG Miscellaneous (Fentanyl Patch Remove & Waste) 1 ea Q3D N/A 01/12/18 14:59 02/11/18 14:58 01/12/18 15:04 1 EA Miscellaneous Information (Check Fentanyl Patch Placement) 1 ea QS N/A 01/12/18 00:00 02/11/18 00:00 01/12/18 16:04 1 EA Lorazepam (Ativan Tab) 0.5 mg HS PRN PO 01/11/18 20:30 02/10/18 20:29 01/11/18 21:06 0.5 MG Nicotine (Nicoderm Cq 7 Mg Patch) 1 patch QAM TD 01/12/18 09:00 02/11/18 08:59 01/12/18 08:07 1 PATCH Miscellaneous (Remove Nicoderm Patch) 1 ea HS N/A 01/12/18 21:00 02/11/18 20:59 Insulin Aspart (novoLOG ASPART) SLIDING SCALE G... ACHS SC 01/12/18 11:00 02/11/18 10:59 01/12/18 17:06 1 UNITS Glucose (Glucose 40% Gel) 15-30 GRAMS 15 GRAMS... UD PRN PO 01/12/18 07:30 02/11/18 07:29 Glucose (Glucose Chew Tab) 4-8 Tablets 4 Tabl... UD PRN PO 01/12/18 07:30 02/11/18 07:29 Dextrose (Dextrose 50% 50ML Syringe) 25-50ML OF 50% DW IV FOR... UD PRN IV 01/12/18 07:30 02/11/18 07:29 Glucagon (Glucagon Inj) 1 mg UD PRN SQ 01/12/18 07:30 02/11/18 07:29 Potassium Chloride (Klor-Con Tab) 20 meq BID PO 01/12/18 09:00 02/11/18 08:59 01/12/18 09:04 20 MEQ
[2018-01-12 19:53] VITALS: BP 116/74; PULSE 61; TEMP 36.7; O2SAT 94
[2018-01-12] MEDS ORDERED: LEVO50TA6 PO (20:38)
[2018-01-12] MEDS: TRAZODONE HCL 100 MG TAB PO SCH (20:49)
[2018-01-12] MEDS: AMITRIPTYLINE HCL 50 MG TAB PO SCH (20:49)
[2018-01-12] MEDS: OLANZAPINE 2.5 MG TAB PO SCH (20:49)
[2018-01-12] MEDS: ATORVASTATIN 40 MG TAB PO SCH (20:50)
[2018-01-12] MEDS: RANITIDINE HCL 150 MG TAB PO SCH (20:50)
[2018-01-12] MEDS: LORAZEPAM 0.5 MG TAB PO PRN (21:41)
[2018-01-13 03:58] VITALS: BP 111/72; PULSE 56; TEMP 36.9; O2SAT 97
[2018-01-13] MEDS ORDERED: LEVOTHYROXINE 50 MCG TAB PO SCH (06:00)
[2018-01-13 07:14] LABS: INR 1.7 (0.9-1.1)
[2018-01-13] MEDS: CHECK FENTANYL PATCH PLACEMENT SCH (07:15)
[2018-01-13 07:41] VITALS: BP 109/63; PULSE 58; TEMP 36.9; O2SAT 95
[2018-01-13 07:44] LABS: CALCIUM 9.2 mg/dl (8.5-10.1); CREATININE 1.48 mg/dl (0.60-1.20); POTASSIUM 3.5 mmol/L (3.5-5.1)
[2018-01-13] MEDS: FLUTICASONE/SALMETEROL 250/50 (ADVAIR) 14 PUFF/1 INHALER INH SCH (08:10)
[2018-01-13] MEDS: TIOTROPIUM BROMIDE 5 PUFF/90 MCG INH INH SCH (08:12)
[2018-01-13] MEDS: SPIRONOLACTONE 25 MG TAB PO SCH (08:13)
[2018-01-13] MEDS: DOCUSATE SODIUM 100 MG CAP PO SCH (08:13)
[2018-01-13] MEDS: CETIRIZINE HCL 10 MG TAB PO SCH (08:14)
[2018-01-13] MEDS: CHOLECALCIFEROL 1000 INTER.UNIT TAB PO SCH (08:14)
[2018-01-13] MEDS: MULTIVITAMIN TAB PO SCH (08:14)
[2018-01-13] MEDS: VENLAFAXINE HCL XR 75 MG CAPXR PO SCH (08:14)
[2018-01-13] MEDS: POTASSIUM CHLORIDE 20 MEQ TABCR PO SCH (08:15)
[2018-01-13] MEDS: METOPROLOL TARTRATE 100 MG TAB PO SCH (08:16)
[2018-01-13] MEDS: AMLODIPINE BESYLATE 5 MG TAB PO SCH (08:17)
[2018-01-13] MEDS: GABAPENTIN 800 MG TAB PO SCH ×2 (08:17→13:09)
[2018-01-13] MEDS: FUROSEMIDE 40 MG TAB PO SCH (08:18)
[2018-01-13] MEDS: PANTOprazole SOD 40 MG TAB PO SCH (08:18)
[2018-01-13] MEDS: NICOTINE 7 MG/24 HR TDSY TD SCH (08:19)
[2018-01-13 08:20] VITALS: PULSE 62
[2018-01-13] MEDS: INSULIN ASPART 100 UNITS/ML 3 ML PEN SC SCH ×2 (08:22→12:19)
[2018-01-13] MEDS: INSULIN GLARGINE SOLOSTAR 100 UNITS/ML 3 ML PEN SC SCH (08:23)
--- NOTE | 2018-01-13 08:24 | Clinical Documentation Query ---
CLINICAL DOCUMENTATION QUERY 62 yo female admitted with SOB and chest pain. Echo done 04/2017 showed mild concentric LVH and EF = 65-70%. Patient has a history of CHF and takes PO Lasix at home. In your clinical opinion is this patient being managed for: ( ) Chronic diastolic CHF ( ) Not Agree ( x) Other explanation of clinical findings (Please Explain. If no explanation given, this would be considered a no response.) ( ) Unable to determine ( ) Need to Discuss (Please call CDS via extension or qliq. If no interaction occurs this is considered a no response.) Right heart failure, cor pulmonale physiology The medical record reflects the following clinical findings, treatment, and risk factors. Clinical Indicators: As above Treatment: Home Lasix, Cardiology consult Risk Factors: Cardiomegaly, HTN, hx A-fib Please clarify and document your clinical opinion in the progress notes and discharge summary. Terms such as "probable", "suspected", "likely", "questionable", "possible", or "still to be ruled out" are acceptable. IF IN AGREEMENT, YOU MUST DOCUMENT ABOVE DIAGNOSTIC STATEMENT IN DAILY PROGRESS NOTES AND DISCHARGE SUMMARY. This document is not part of the patient's record. Thank You, Mariela Oneill RN [phone]
[2018-01-13] MEDS: OXYCODONE HCL IR 5 MG TAB (IMMEDIATE RELEASE) PO PRN (08:28)
--- NOTE | 2018-01-13 09:38 | Cardiology Follow-Up ---
Subjective General Date of Service: January 13, 2018. Chief Complaint: Chest pain Pt evaluation today including: conversation w/ patient, physical exam, chart review, lab review, review of studies, review of inpatient medication list History of Present Illness Patient seen and examined. No further chest pain. Lone complaint voiced is that of chronic (~3 months) left arm discomfort) Continuous telemetry monitoring reveals sinus/sinus bradycardia. Occasional PVC in singles. No significant bradycardia or pauses. No atrial fibrillation or flutter. EKG dated and timed 13-JAN-2018 @ 06:39:25: Sinus rhythm with 1st degree A-V block. Right bundle branch block. When compared with ECG of 12-JAN-2018 06:52, no significant change was found. Allergies Coded Allergies: BEE STING (Verified Allergy, Severe, SWELLING, 01/11/18) Lisinopril (Verified Allergy, Intermediate, FACE SWELLING, 01/11/18) Potato (Verified Allergy, Intermediate, BBQ chips - facial swelling, ) Metronidazole (Verified Allergy, Mild, FACE SWELLING, 01/11/18) Fraser (Verified Allergy, Mild, HIVES, 01/11/18) Alprazolam (Verified Allergy, Unknown, RED FACE, FACE SWELLING, 01/11/18) Lactose (Verified Adverse Reaction, Intermediate, VOMTING DIARRHEA ABDOMINAL PAIN, 01/11/18) Prednisone (Verified Adverse Reaction, Mild, unknown, 01/11/18) Colesevelam (Verified Adverse Reaction, Unknown, unknown, 01/11/18) Evarts (Verified Adverse Reaction, Unknown, jitters, 01/11/18) Social History Smoking Status: Current Every Day Smoker Hx Tobacco Use In Past Year?: Yes Hx Alcohol Use - Type And Amou: No Hx Substance Use - Type And Am: No Problem List Medical Problems: (1) Acute gastroenteritis Status: Acute (2) Altered mental status Status: Acute (3) Anemia Status: Acute (4) Atrial flutter with rapid ventricular response Status: Acute (5) Back pain Status: Acute (6) Bradycardia Status: Acute (7) Bronchitis Status: Acute (8) Bronchitis Status: Acute (9) CAP (community acquired pneumonia) Status: Acute (10) Cellulitis Status: Acute (11) Cervical radiculopathy Status: Acute (12) Chest pain Status: Acute (13) Chest pain Status: Acute (14) Chest pain of unknown etiology Status: Acute (15) Chest wall pain Status: Acute (16) Chest wall pain Status: Acute (17) CHF exacerbation Status: Acute (18) CHF exacerbation Status: Acute (19) Chronic right shoulder pain Status: Acute (20) Congestive heart failure Status: Acute (21) Congestive heart failure Status: Acute (22) Congestive heart failure (CHF) Status: Acute (23) Constipation Status: Acute (24) COPD exacerbation Status: Acute (25) COPD exacerbation Status: Acute (26) COPD exacerbation Status: Acute (27) Cough Status: Acute (28) Dehydration Status: Acute (29) Depressed Status: Acute (30) Diarrhea Status: Acute (31) Diarrhea Status: Acute (32) Diarrhea Status: Acute (33) Diffuse abdominal pain Status: Acute (34) Diffuse abdominal pain Status: Acute (35) Dysuria Status: Acute (36) Elevated troponin Status: Acute (37) Erythema of face Status: Acute (38) Facial contusion Status: Acute (39) Fall Status: Acute (40) Fatigue Status: Acute (41) Fluid overload Status: Acute (42) Generalized weakness Status: Acute (43) Generalized weakness Status: Acute (44) Headache Status: Acute (45) History of COPD Status: Acute (46) Hyperglycemia Status: Acute (47) Hyponatremia Status: Acute (48) Hyponatremia Status: Acute (49) Hypoxia Status: Acute (50) Leukocytosis Status: Acute (51) Lower back pain Status: Acute (52) Pelvic cyst Status: Acute (53) PNA (pneumonia) Status: Acute (54) Precordial chest pain Status: Acute (55) Rash Status: Acute (56) Request for narcotic pain medication Status: Acute (57) Respiratory failure Status: Acute (58) Right fibular fracture Status: Acute (59) Right leg pain Status: Acute (60) Shortness of breath Status: Acute (61) Shortness of breath Status: Acute (62) Shortness of breath Status: Acute (63) Shoulder pain, right Status: Acute (64) SOB (shortness of breath) Status: Acute (65) Tingling sensation Status: Acute (66) Tobacco use Status: Acute (67) Urinary tract infection Status: Acute (68) UTI (urinary tract infection) Status: Acute (69) Weakness Status: Acute (70) Weakness Status: Acute (71) Wheezing Status: Acute (72) Wrist pain Status: Acute (73) Wrist pain, left Status: Acute Physical Exam Vital Signs Last Vital Signs Documentation Date Time Temp Pulse Resp B/P (MAP) Pulse Ox O2 Delivery O2 Flow Rate FiO2 01/13/18 08:20 62 01/13/18 07:41 36.9 18 109/63 (78) 95 01/13/18 07:23 Nasal Cannula 3.0 Physical Exam Constitutional: Level of Distress: NAD, chronically ill Psychiatric: Mental Status: abnormal affect Orientation: to time, to place, to person Memory: recent memory normal, remote memory normal Head: normocephalic, atraumatic Eyes: Pupils: PERRLA Neck: pertinent finding (Normal JVP) Lungs: Respiratory effort: no dyspnea Auscultation: no rales/crackles, deminished air movement, decreased breath sounds, expiratory wheezing, rhonchi Cardiovascular: Heart Auscultation: RRR, no rubs, II/ JAYDEN Peripheral Pulses: Radial Pulse: normal on the left, normal on the right Dorsalis Pedis Pulse: decreased on the left, decreased on the right Abdomen: Bowel Sounds: normal Inspection & Palpation: soft Extremities: no cyanosis, no edema, no clubbing, pertinent finding (chronic stasis changes) Neurologic: Cranial Nerves: grossly intact Assessment and Plan Assessment and Plan Atypical chest pain. EKG's without acute change. Cardiac enzymes negative. Reproducible with palpation of the chest wall. Prior catheterization on June 13, 2005 showed left dominant coronary anatomy with small caliber distal vessels, consistent with diabetic history - without obstructive disease. Note: Patient is unable to ambulate adequately for exercise stress testing and was previously felt to be a poor candidate for pharmacological stress test. Continue medical management. Right heart failure, cor pulmonale physiology. Compensated volume status currently. Continue to hold Metolazone Continue furosemide 40 mg twice a day and spironolactone 12.5 mg/day. Consider titration of spironolactone to 25 mg/day down the road. Hyponatremia. Resolved. Follow. Hypokalemia. Resolved. Follow. Status post atrial flutter ablation. Maintaining sinus rhythm. 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 Outpatient cardiology follow-up to be arrange at [facility]. Patient seen and personally examined, assessment as above. She appears clinically improved today hyponatremia has improved. Medication adjustments as noted with planned outpatient follow-up Mc House MD Laboratory Results Last 24 Hours Test 01/12/18 11:02 01/12/18 16:26 01/12/18 20:48 01/13/18 06:53 Bedside Glucose 310 mg/dl 102 mg/dl 244 mg/dl Prothrombin Time 17.9 SECONDS Prothromb Time International Ratio 1.7 Sodium Level 137 mmol/L Potassium Level 3.5 mmol/L Chloride Level 97 mmol/L Carbon Dioxide Level 36 mmol/L Anion Gap 4.0 mmol/L Blood Urea Nitrogen 34 mg/dl Creatinine 1.48 mg/dl Est Creatinine Clear Calc Drug Dose 44.9 ml/min Estimated GFR () 43.8 Estimated GFR (Non- 37.8 BUN/Creatinine Ratio 22.8 Random Glucose 115 mg/dl Calcium Level 9.2 mg/dl Test 01/13/18 07:13 Bedside Glucose 127 mg/dl
[2018-01-13 12:03] VITALS: BP 98/48; PULSE 54; TEMP 36.9; O2SAT 96
--- NOTE | 2018-01-13 13:41 | DIAGNOSTIC IMAGING REPORT ---
CHEST 2 VIEWS ROUTINE CLINICAL HISTORY: 62 years-old Female presenting with follow up CHF, shortness of breath. TECHNIQUE: PA and lateral views of the chest were obtained. COMPARISON: 01/11/2018. FINDINGS: Atherosclerosis of aortic arch. Prominence of the main pulmonary artery. Mild cardiac silhouette enlargement. Postsurgical changes of mitral valve repair/replacement. Mild prominence of lung markings diffusely. No focal opacity. No large effusion or pneumothorax. Osseous structures normal. Cholecystectomy clips noted. Surgical clips project over the right axilla. IMPRESSION: 1. Cardiomegaly with volume overload/congestive change. No raphael pulmonary edema. Electronically signed by: Erikc Garner M.D. 01/13/2018 1:40 PM Dictated Date/Time: 01/13/2018 1:39 PM
--- NOTE | 2018-01-13 14:33 | Progress Note ---
Internal Med Progress Note Date of Service: January 13, 2018. Provider Documentation: SUBJECTIVE: Patient denies chest pain or worsening shortness of breath. She is seen with nasal cannula on and reports that she uses home oxygen and has available supplies OBJECTIVE: General- no distress Lungs- on nasal cannula, good air entry, no wheezing Cardiovascular - bradycardic Abdomen- positive bowel sounds, soft, nontender Extremities- no cyanosis; no calf tenderness; chronic venous stasis changes of lower extremities, no gross edema Neuro- alert, oriented Skin- warm & dry ASSESSMENT & PLAN: Hospital Course and Discharge Instructions Patient was evaluated in the hospital for chest pain Cardiology service evaluated the patient "Atypical chest pain. EKG's without acute change. Cardiac enzymes negative. Reproducible with palpation of the chest wall. Prior catheterization on June 13, 2005 showed left dominant coronary anatomy with small caliber distal vessels, consistent with diabetic history - without obstructive disease. Note: Patient is unable to ambulate adequately for exercise stress testing and was previously felt to be a poor candidate for pharmacological stress test. Continue medical management. Right heart failure, cor pulmonale physiology. Compensated volume status currently. Continue to hold Metolazone Continue furosemide 40 mg twice a day and spironolactone 12.5 mg/day. Consider titration of spironolactone to 25 mg/day down the road." CHF admission Chest x-ray shows cardiomegaly and pulmonary edema. Metolazone discontinued because of severe hyponatremia. Continue furosemide and spironolactone. repeat Chest X-ray shows improvement HISTORY ATRIAL FIBRILLATION / FLUTTER Continue metoprolol and warfarin. Discharge INR is 1.7, patient needs to follow up with coumadin clinic to get INR levels between 2 to 3. HYPERTENSION Continue metoprolol and amlodipine. COPD / COR PULMONALE / CHRONIC HYPOXIC RESPIRATORY FAILURE Continue inhalers and nebulizers as needed Continue supplemental O2. HYPONATREMIA: Serum sodium 124 at time of admission. Hyponatremia has resolved after fluid restriction HYPOKALEMIA: resolved after potassium supplementation DM TYPE 2: continue home insulin HYPOTHYROIDISM Listed as diagnosis in medical record TSH is 0.844. Continue levothyroxine 50 mcg daily DEPRESSION history: Continue home medications. Follow up Appointments and Instructions Medications changes: Stop Metolazone but continue furosemide 40 mg twice a day and spironolactone 12.5 mg/day. Follow primary care doctor for management of hypothyroidism with Levothyroxine. Continue coumadin but patient needs to follow up with coumadin clinic to get INR levels between 2 to 3. 01/16/2018 2:00 PM Javan Maravilla PA-C Cardiology, [facility] 01/20/2018 3:00 PM Manoj Goins DO General Internal Medicine [facility] 02/03/2018 11:30 AM [facility] [place] [facility] [place] (message was left with [phone] to set up earlier coumadin clinic follow up) Vital Signs: Date Time Temp Pulse Resp B/P (MAP) Pulse Ox O2 Delivery O2 Flow Rate FiO2 01/13/18 14:23 36.9 54 18 96 Nasal Cannula 01/13/18 13:34 Nasal Cannula 3.0 01/13/18 12:03 36.9 54 18 98/48 (65) 96 01/13/18 08:20 62 01/13/18 07:41 36.9 58 18 109/63 (78) 95 01/13/18 07:23 Nasal Cannula 3.0 01/13/18 04:10 Nasal Cannula 3.0 01/13/18 03:58 36.9 56 16 111/72 (85) 97 01/13/18 00:15 Nasal Cannula 3.0 01/12/18 20:30 Nasal Cannula 3.0 01/12/18 19:53 36.7 61 20 116/74 (88) 94 Nasal Cannula 3.0 01/12/18 15:25 36.8 62 20 115/69 (84) 96 Nasal Cannula 3.0 01/12/18 15:15 Nasal Cannula 3.0 Lab Results: Results Past 24 Hours Test 01/12/18 16:26 01/12/18 20:48 01/13/18 06:53 01/13/18 07:13 Range/Units Bedside Glucose 102 244 127 70-90 mg/dl Prothrombin Time 17.9 9.0-12.0 SECONDS Prothromb Time International Ratio 1.7 0.9-1.1 Sodium Level 137 136-145 mmol/L Potassium Level 3.5 3.5-5.1 mmol/L Chloride Level 97 98-107 mmol/L Carbon Dioxide Level 36 21-32 mmol/L Anion Gap 4.0 3-11 mmol/L Blood Urea Nitrogen 34 7-18 mg/dl Creatinine 1.48 0.60-1.20 mg/dl Est Creatinine Clear Calc Drug Dose 44.9 ml/min Estimated GFR () 43.8 Estimated GFR (Non- 37.8 BUN/Creatinine Ratio 22.8 10-20 Random Glucose 115 70-99 mg/dl Calcium Level 9.2 8.5-10.1 mg/dl Test 01/13/18 11:16 Range/Units Bedside Glucose 163 70-90 mg/dl
--- NOTE | 2018-01-13 14:51 | Discharge Instructions ---
Discharge Instructions Date of Service January 13, 2018. Admission Reason for Admission: Chest Pain, Hyponatremia Discharge Discharge Diagnosis / Problem: Right heart failure, cor pulmonale physiology. CHF, Hyponatremia, coumadin Discharge Goals Goal(s): Decrease discomfort, Improve function, Improve disease control Activity Recommendations Activity Limitations: per Instructions/Follow-up section Shower/Bathe: no limitations . Instructions / Follow-Up Instructions / Follow-Up Hospital Course and Discharge Instructions Patient was evaluated in the hospital for chest pain Cardiology service evaluated the patient "Atypical chest pain. EKG's without acute change. Cardiac enzymes negative. Reproducible with palpation of the chest wall. Prior catheterization on June 13, 2005 showed left dominant coronary anatomy with small caliber distal vessels, consistent with diabetic history - without obstructive disease. Note: Patient is unable to ambulate adequately for exercise stress testing and was previously felt to be a poor candidate for pharmacological stress test. Continue medical management. Right heart failure, cor pulmonale physiology. Compensated volume status currently. Continue to hold Metolazone Continue furosemide 40 mg twice a day and spironolactone 12.5 mg/day. Consider titration of spironolactone to 25 mg/day down the road." CHF admission Chest x-ray shows cardiomegaly and pulmonary edema. Metolazone discontinued because of severe hyponatremia. Continue furosemide and spironolactone. repeat Chest X-ray shows improvement HISTORY ATRIAL FIBRILLATION / FLUTTER Continue metoprolol and warfarin. Discharge INR is 1.7, patient needs to follow up with coumadin clinic to get INR levels between 2 to 3. HYPERTENSION Continue metoprolol and amlodipine. COPD / COR PULMONALE / CHRONIC HYPOXIC RESPIRATORY FAILURE Continue inhalers and nebulizers as needed Continue supplemental O2. HYPONATREMIA: Serum sodium 124 at time of admission. Hyponatremia has resolved after fluid restriction HYPOKALEMIA: resolved after potassium supplementation DM TYPE 2: continue home insulin HYPOTHYROIDISM Listed as diagnosis in medical record TSH is 0.844. Continue levothyroxine 50 mcg daily DEPRESSION history: Continue home medications. Follow up Appointments and Instructions Medications changes: Stop Metolazone but continue furosemide 40 mg twice a day and spironolactone 12.5 mg/day. Follow primary care doctor for management of hypothyroidism with Levothyroxine. Continue coumadin but patient needs to follow up with coumadin clinic to get INR levels between 2 to 3. 01/16/2018 2:00 PM Javan Maravilla PA-C Cardiology, [facility] 01/20/2018 3:00 PM Manoj Goins DO General Internal Medicine [facility] 02/03/2018 11:30 AM [facility] [place] [facility], [place] (message was left with [phone] to set up earlier coumadin clinic follow up) Call your Primary Care doctor if any of the following symptoms or problems start or get worse: * Shortness of breath or difficulty breathing * Wake up at night short of breath * Chest pain * Cough * Swelling of your hands, feet, or legs * More fatigued or tired with your normal activity * Palpitations - sudden fast heart beats WEIGHT * Weigh yourself every morning after using the bathroom. * Use the same scale. * Wear the same amount of clothing. * Write your weight down on a chart. * Call your Primary Care doctor if you gain more than 2-3 pounds in 1-2 days. MEDICATIONS * Use this discharge instruction sheet for medication instructions. * Take your medications at the time your doctor ordered. * Do not skip a dose of your medicines. * If you miss a dose of medicine, take it as soon as possible, but DO NOT DOUBLE A DOSE. * Read your medicine information when you get home. * Know all of the side effects of your medicine. If in doubt, ask your pharmacist * Call your Primary Care doctor's office if you have any side effects. * Be sure all of your doctors know what medicine and herbs you take (including cold, flu, and herbal medicine). Take the following with you to your follow-up doctor appointments: * Weight Chart * Medication List * List of questions Do not drink excessive alcohol, beer or wine. Current Hospital Diet Patient's current hospital diet: AHA Diet (Heart Healthy), Diabetes Type 2 Diet Discharge Diet Recommended Diet: AHA Diet (Heart Healthy), Diabetes Type 2 Diet Pending Studies Studies pending at discharge: no Laboratory Results 01/11/18 11:25 01/13/18 06:53 Test 01/11/18 11:25 01/11/18 11:45 01/11/18 15:40 01/12/18 06:28 Red Blood Count 4.23 M/uL (4.2-5.4) Mean Corpuscular Volume 85.8 fL (80-100) Mean Corpuscular Hemoglobin 30.3 pg (25-34) Mean Corpuscular Hemoglobin Concent 35.3 g/dl (32-36) RDW Standard Deviation 44.4 fL (36.4-46.3) RDW Coefficient of Variation 14.2 % (11.5-14.5) Mean Platelet Volume 8.6 fL (7.4-10.4) Activated Partial Thromboplast Time 37.5 SECONDS (21.0-31.0) Partial Thromboplastin Ratio 1.4 Total Bilirubin 0.4 mg/dl (0.2-1) Aspartate Amino Transf (AST/SGOT) 30 U/L (15-37) Alanine Aminotransferase (ALT/SGPT) 40 U/L (12-78) Alkaline Phosphatase 86 U/L (45-117) Total Creatine Kinase 290 U/L (26-192) Creatine Kinase MB 1.3 ng/ml (0.5-3.6) Creatine Kinase MB Ratio 0.4 (0-3.0) Total Protein 7.6 gm/dl (6.4-8.2) Albumin 3.3 gm/dl (3.4-5.0) Globulin 4.3 gm/dl (2.5-4.0) Albumin/Globulin Ratio 0.8 (0.9-2) Bedside Troponin I < 0.030 ng/ml (0-0.045) Urine Color YELLOW Urine Appearance CLEAR (CLEAR) Urine pH 7.0 (4.5-7.5) Urine Specific [place] 1.008 (1.000-1.030) Urine Protein NEG (NEG) Urine Glucose (UA) NEG (NEG) Urine Ketones NEG (NEG) Urine Occult Blood NEG (NEG) Urine Nitrite NEG (NEG) Urine Bilirubin NEG (NEG) Urine Urobilinogen NEG (NEG) Urine Leukocyte Esterase NEG (NEG) Urine WBC (Auto) 0 /hpf (0-5) Urine RBC (Auto) 0-4 /hpf (0-4) Urine Hyaline Casts (Auto) 0 /lpf (0-5) Urine Epithelial Cells (Auto) 5-10 /lpf (0-5) Urine Bacteria (Auto) NEG (NEG) Urine Osmolality 148 mOms/kg (500-800) Urine Random Creatinine < 13.0 mg/dl Urine Random Sodium 33 mEq/L Estimated Average Glucose 189 mg/dl Hemoglobin A1c 8.2 % (4.5-5.6) Magnesium Level 2.2 mg/dl (1.8-2.4) Troponin I < 0.015 ng/ml (0-0.045) Pro-B-Type Natriuretic Peptide 387 pg/ml (0-900) Thyroid Stimulating Hormone (TSH) 0.844 uIu/ml (0.300-4.500) Test 01/13/18 06:53 01/13/18 11:16 Prothrombin Time 17.9 SECONDS (9.0-12.0) Prothromb Time International Ratio 1.7 (0.9-1.1) Anion Gap 4.0 mmol/L (3-11) Est Creatinine Clear Calc Drug Dose 44.9 ml/min Estimated GFR () 43.8 Estimated GFR (Non- 37.8 BUN/Creatinine Ratio 22.8 (10-20) Calcium Level 9.2 mg/dl (8.5-10.1) Bedside Glucose 163 mg/dl (70-90) Hemoglobin A1c Test 01/12/18 06:28 Range/Units Estimated Average Glucose 189 mg/dl Hemoglobin A1c 8.2 H 4.5-5.6 % Lipid Panel Test 10/22/17 03:55 Range/Units Triglycerides Level 129 0-150 mg/dl Cholesterol Level 121 0-200 mg/dl HDL Cholesterol 72 mg/dl Cholesterol/HDL Ratio 1.7 LDL Cholesterol, Calculated 23 mg/dl Medical Emergencies . Who to Call and When: Call 911 or go to the Emergency Room if: * If at any time you feel your situation is an emergency * You have tightness or pain in your chest that does not go away with rest or Nitroglycerin * You are very short of breath even with rest . Non-Emergent Contact Non-Emergency issues call your: Primary Care Provider, Automotive Product Engineer Call Non-Emergent contact if: you have any medication questions . . "Provider Documentation" section prepared by Hipolito Aguirre. .
--- NOTE | 2018-01-13 14:53 | Discharge Summary ---
Discharge Summary Date of Service January 13, 2018. Discharge Summary Admission Date: Jan 11, 2018 at 12:39 Discharge Date: January 13, 2018 Discharge Disposition: Home Principal Diagnosis: atypical chest pain Right heart failure, cor pulmonale physiology, CHF cardiomegaly and pulmonary edema. hyponatremia, hypokalemia history of atrial fibrillation/flutter on coumadin chronic hypoxic respiratory failure on home oxygen hypertension COPD DM TYPE 2 on insulin Medication Reconciliation Continued Medications: Albuterol Sulf (Proventil 0.083% 2.5MG/3ML) 2.5 Mg/3 Ml Nebu 2.5 MG INH Q6H PRN for SOB/Wheezing, EA Amitriptyline HCl (Amitriptyline HCl) 50 Mg Tab 50 MG PO HS Amlodipine Besylate (Amlodipine Besylate) 10 Mg Tab 10 MG PO QAM Atorvastatin (Lipitor) 40 Mg Tab 40 MG PO HS Calcitriol (Calcitriol) 0.5 Mcg Cap 0.5 MCG PO 3XWK TAKE THIS MEDICATION EVERY FRIDAY,FRIDAY AND FRIDAY Cetirizine (Zyrtec) 10 Mg Tab 10 MG PO QAM Cholecalciferol (Vitamin D3) 1,000 Inter.unit Tab 1000 UNITS PO QAM Docusate Sodium (Docusate Sodium) 100 Mg Cap 100 MG PO DAILY AFTERNOON Epinephrine (Epipen) 0.3 Mg/0.3 Ml Inj 0.3 MG IM UD PRN for ALLERGIC REACTION Fentanyl (Duragesic) 50 Mcg Tdsy 50 MCG TOP [id number] Fluticasone Prop/Salmeterol (Advair Diskus 250/50 60 Dose) 1 Ea Aerp 1 PUFF INH BID Furosemide (Furosemide) 40 Mg Tab 40 MG PO BID Gabapentin (Gabapentin) 800 Mg Tab 800 MG PO TID Home O2 Therapy (Oxygen) Gas 3 LITERS NA CONTINOUS Insulin Glargine (Lantus Solostar) 100 Unit/Ml Inj 16 UNITS SC BID Levothyroxine Sodium (Levothyroxine Sodium) 50 Mcg Tab 50 MCG PO DAILY Loperamide Hcl (Imodium) 2 Mg Cap 2 MG PO BID PRN for Diarrhea, CAP Lorazepam (Lorazepam) 0.5 Mg Tab 0.5 MG PO HS for Anxiety/Agitation Metoprolol Tartrate (Lopressor) (Lopressor) 100 Mg Tab 100 MG PO BID, TAB Multiple Vitamin (Multivitamin) 1 Tab Tab 1 TAB PO QAM Mupirocin 2% (Bactroban 2%) 30 Gm Cr 1 APPLN EXT BID, TUBE Olanzapine (Olanzapine) 2.5 Mg Tab 2.5 MG PO HS Ondansetron Hcl (Zofran) 8 Mg Tab 8 MG PO BID PRN for Nausea, TAB Oxycodone HCl (Oxycodone HCl) 5 Mg Tab 10 MG PO Q6 PRN for Pain Pantoprazole (Protonix) 40 Mg Tab 40 MG PO QAM Polyethylene Glycol 3350 (Miralax) 1 Pow Pow 17 GM PO DAILY PRN for Constipation, #527 GM Potassium Chloride (Micro-K Ext Rel) 10 Meq Capcr 10 MEQ PO BID Spironolactone (Aldactone) 25 Mg Tab 12.5 MG PO QAM Tiotropium [place] (Spiriva Handihaler) 30 Puff/540 Mcg Aerp 1 CAP INH QAM Trazodone Hcl (Desyrel) 100 Mg Tab 200 TAB PO HS Venlafaxine Hcl (Effexor Extended Rel) 75 Mg Capcr 225 MG PO QAM take 150 mg pill with 75 mg pill for total of 225 mg daily Venlafaxine Hcl (Effexor Extended Rel) 150 Mg Capcr 150 MG PO DAILY, CAP take 150 mg pill with 75 mg pill for total of 225 mg daily Warfarin Sod (Jantoven) 5 Mg Tab 5 MG PO 2XWK FRIDAY, FRIDAY Warfarin Sodium (Warfarin Sodium) 7.5 Mg Tab 7.5 MG PO 5XWK, TAB FRIDAY, FRIDAY, FRIDAY, FRIDAY, FRIDAY Discontinued Medications: Diphenoxylate/Atropine (Lomotil) Tab 1 TAB PO BID PRN for Diarrhea, TAB Metolazone (Metolazone) 2.5 Mg Tab 2.5 MG PO UD, TAB Takes 30 minutes prior to Lasix on MON and FRI Ranitidine Hcl (Ranitidine Hcl) 300 Mg Cap 300 MG PO HS, CAP 3 Refills Admission Information HPI (per Admitting provider): 62-year-old female followed by Dr. Goins. Cardiac catheterization 2004 demonstrated small caliber distal vessels without obstructive disease. History of atrial flutter, status post ablation. History of mitral valve fibroblastoma, status post mitral valve repair. Presented to ED today with chest pain. Chest pain initially occurred at rest while watching TV. Pain described as intermittently dull and sharp. No radiation. It was associated with mild dyspnea and nausea. No palpitations or edema. Symptoms were intermittent throughout the day yesterday, and then occurred again this morning upon rising. Episode this morning lasted for about 45 minutes. Did not take nitroglycerin or other medications. Pain-free at time of my assessment. . Physical Exam (per Admitting): CONSTITUTIONAL vital signs as noted above obese, well-nourished, no acute distress EYES conjunctivae clear; lids normal pupils equal and reactive to light EARS, NOSE, MOUTH AND THROAT external inspection of ears and nose unremarkable hearing grossly intact to spoken voice edentulous, upper dentures oropharynx clear NECK no masses; trachea midline thyroid normal RESPIRATORY normal respiratory effort; no respiratory distress clear to percussion diffuse mild wheezing CARDIOVASCULAR regular rate and rhythm no murmur, gallop, rub appreciated + JVD carotid arteries 2/2; no bruits appreciated abdominal aorta not palpable pedal pulses intact and symmetric capillary refill toes < 2 seconds trace pretibial edema GASTROINTESTINAL normal bowel sounds, soft, nontender; no palpable masses no hepatomegaly; no splenomegaly LYMPHATIC no cervical adenopathy MUSCULOSKELETAL no cyanosis no calf tenderness motor strength extremities grossly intact SKIN venous stasis dermatitis lower extremities warm and dry NEUROLOGIC PERRL, EOMI, no facial palsy, no dysarthria, tongue midline patellar DTR's 1/2 PSYCHIATRIC oriented to person, place, time mood and affect appropriate . Hospital Course Hospital Course and Discharge Instructions Patient was evaluated in the hospital for chest pain Cardiology service evaluated the patient "Atypical chest pain. EKG's without acute change. Cardiac enzymes negative. Reproducible with palpation of the chest wall. Prior catheterization on June 13, 2005 showed left dominant coronary anatomy with small caliber distal vessels, consistent with diabetic history - without obstructive disease. Note: Patient is unable to ambulate adequately for exercise stress testing and was previously felt to be a poor candidate for pharmacological stress test. Continue medical management. Right heart failure, cor pulmonale physiology. Compensated volume status currently. Continue to hold Metolazone Continue furosemide 40 mg twice a day and spironolactone 12.5 mg/day. Consider titration of spironolactone to 25 mg/day down the road." CHF admission Chest x-ray shows cardiomegaly and pulmonary edema. Metolazone discontinued because of severe hyponatremia. Continue furosemide and spironolactone. repeat Chest X-ray shows improvement HISTORY ATRIAL FIBRILLATION / FLUTTER Continue metoprolol and warfarin. Discharge INR is 1.7, patient needs to follow up with coumadin clinic to get INR levels between 2 to 3. HYPERTENSION Continue metoprolol and amlodipine. COPD / COR PULMONALE / CHRONIC HYPOXIC RESPIRATORY FAILURE Continue inhalers and nebulizers as needed Continue supplemental O2. HYPONATREMIA: Serum sodium 124 at time of admission. Hyponatremia has resolved after fluid restriction HYPOKALEMIA: resolved after potassium supplementation DM TYPE 2: continue home insulin HYPOTHYROIDISM Listed as diagnosis in medical record TSH is 0.844. Continue levothyroxine 50 mcg daily DEPRESSION history: Continue home medications. Follow up Appointments and Instructions Medications changes: Stop Metolazone but continue furosemide 40 mg twice a day and spironolactone 12.5 mg/day. Follow primary care doctor for management of hypothyroidism with Levothyroxine. Continue coumadin but patient needs to follow up with coumadin clinic to get INR levels between 2 to 3. 01/16/2018 2:00 PM Javan Maravilla PA-C Cardiology, [facility] 01/20/2018 3:00 PM Manoj Goins DO General Internal Medicine [facility] 02/03/2018 11:30 AM [facility], [place] (message was left with [phone] to set up earlier coumadin clinic follow up) Total time spent on discharge = 40 minutes This includes examination of the patient, discharge planning, medication reconciliation, and communication with other providers. Discharge Instructions Hospital Course and Discharge Instructions Patient was evaluated in the hospital for chest pain Cardiology service evaluated the patient "Atypical chest pain. EKG's without acute change. Cardiac enzymes negative. Reproducible with palpation of the chest wall. Prior catheterization on June 13, 2005 showed left dominant coronary anatomy with small caliber distal vessels, consistent with diabetic history - without obstructive disease. Note: Patient is unable to ambulate adequately for exercise stress testing and was previously felt to be a poor candidate for pharmacological stress test. Continue medical management. Right heart failure, cor pulmonale physiology. Compensated volume status currently. Continue to hold Metolazone Continue furosemide 40 mg twice a day and spironolactone 12.5 mg/day. Consider titration of spironolactone to 25 mg/day down the road." CHF admission Chest x-ray shows cardiomegaly and pulmonary edema. Metolazone discontinued because of severe hyponatremia. Continue furosemide and spironolactone. repeat Chest X-ray shows improvement HISTORY ATRIAL FIBRILLATION / FLUTTER Continue metoprolol and warfarin. Discharge INR is 1.7, patient needs to follow up with coumadin clinic to get INR levels between 2 to 3. HYPERTENSION Continue metoprolol and amlodipine. COPD / COR PULMONALE / CHRONIC HYPOXIC RESPIRATORY FAILURE Continue inhalers and nebulizers as needed Continue supplemental O2. HYPONATREMIA: Serum sodium 124 at time of admission. Hyponatremia has resolved after fluid restriction HYPOKALEMIA: resolved after potassium supplementation DM TYPE 2: continue home insulin HYPOTHYROIDISM Listed as diagnosis in medical record TSH is 0.844. Continue levothyroxine 50 mcg daily DEPRESSION history: Continue home medications. Follow up Appointments and Instructions Medications changes: Stop Metolazone but continue furosemide 40 mg twice a day and spironolactone 12.5 mg/day. Follow primary care doctor for management of hypothyroidism with Levothyroxine. Continue coumadin but patient needs to follow up with coumadin clinic to get INR levels between 2 to 3. 01/16/2018 2:00 PM Javan Maravilla PA-C Cardiology, [facility] 01/20/2018 3:00 PM Manoj Goins DO General Internal Medicine [facility] 02/03/2018 11:30 AM [facility] [place], [place] (message was left with [phone] to set up earlier coumadin clinic follow up) Call your Primary Care doctor if any of the following symptoms or problems start or get worse: Shortness of breath or difficulty breathing Wake up at night short of breath Chest pain Cough Swelling of your hands, feet, or legs More fatigued or tired with your normal activity Palpitations - sudden fast heart beats WEIGHT Weigh yourself every morning after using the bathroom. Use the same scale. Wear the same amount of clothing. Write your weight down on a chart. Call your Primary Care doctor if you gain more than 2-3 pounds in 1-2 days. MEDICATIONS Use this discharge instruction sheet for medication instructions. Take your medications at the time your doctor ordered. Do not skip a dose of your medicines. If you miss a dose of medicine, take it as soon as possible, but DO NOT DOUBLE A DOSE. Read your medicine information when you get home. Know all of the side effects of your medicine. If in doubt, ask your pharmacist Call your Primary Care doctor's office if you have any side effects. Be sure all of your doctors know what medicine and herbs you take (including cold, flu, and herbal medicine). Take the following with you to your follow-up doctor appointments: Weight Chart Medication List List of questions Do not drink excessive alcohol, beer or wine.
[2018-01-13 15:32] VITALS: BP 135/69; PULSE 63; TEMP 36.9; O2SAT 96
[2018-01-15] MEDS ORDERED: WARFARIN SOD 5 MG TAB PO SCH (16:00)
== END 2018-01-13 15:20 | disposition home health service (06) | DRG 313 ==
LOC: C.EDB 11:03 → C.2T 12:39 → ENRESERV 12:53
PROVIDERS: ADMIT Hospitalist; ATTEND Hospitalist
DX: R07.89 Other chest pain (principal); E87.1 Hypo-osmolality and hyponatremia; J96.11 Chronic respiratory failure with hypoxia; I13.0 Hypertensive heart and chronic kidney disease with heart failure and stage 1 through stage 4 chronic kidney disease, or unspecified chronic kidney disease; T50.2X5A Adverse effect of carbonic-anhydrase inhibitors, benzothiadiazides and other diuretics, initial encounter; I50.810 Right heart failure, unspecified; E87.6 Hypokalemia; I44.0 Atrioventricular block, first degree; I45.10 Unspecified right bundle-branch block; J44.9 Chronic obstructive pulmonary disease, unspecified; I27.81 Cor pulmonale (chronic); G47.33 Obstructive sleep apnea (adult) (pediatric); E11.9 Type 2 diabetes mellitus without complications; E03.9 Hypothyroidism, unspecified; F32.9 Major depressive disorder, single episode, unspecified; E78.5 Hyperlipidemia, unspecified; K21.9 Gastro-esophageal reflux disease without esophagitis; N18.3 Chronic kidney disease, stage 3 (moderate); F17.210 Nicotine dependence, cigarettes, uncomplicated; E66.9 Obesity, unspecified; Z68.37 Body mass index [BMI] 37.0-37.9, adult; Z86.79 Personal history of other diseases of the circulatory system; Z90.49 Acquired absence of other specified parts of digestive tract; Z90.710 Acquired absence of both cervix and uterus; Z98.890 Other specified postprocedural states; Z99.81 Dependence on supplemental oxygen; Z79.01 Long term (current) use of anticoagulants; Z79.4 Long term (current) use of insulin; Z79.891 Long term (current) use of opiate analgesic; Z79.899 Other long term (current) drug therapy; Z88.1 Allergy status to other antibiotic agents; Z88.8 Allergy status to other drugs, medicaments and biological substances; Z91.018 Allergy to other foods; Z91.030 Bee allergy status; Z83.3 Family history of diabetes mellitus; Z82.49 Family history of ischemic heart disease and other diseases of the circulatory system; Z83.79 Family history of other diseases of the digestive system

== ENCOUNTER → 2018-04-24 | Outpatient (CLI) | payer OTHER ==
[~2018-04-24] MED LIST changes: -ALBINS/ INH; +ALBINS/ NEB; -BCTCR/30 EXT; +BCTCR/30 TOP; -DIPH-416 PO; +DIPH1TAB87 PO; -FURO-85 PO; +HYDR25CA PO; -IMD/2 PO; -LEVA1.258 NEB; +LEVA45AE INH; +LEVO50TA6 PO; +LMTHP PO; +LSX40 PO; +METH-307 PO; +METO2.5T PO; +RANI300T2 PO; -RBX750 PO; -SPIR25TA PO; -TRAZ-122 PO; +VENL150C2 PO; +VENL75CA88 PO; +WARF-246 PO; -ZRX25 PO; -ZYP25 PO
--- NOTE | 2018-04-24 15:26 | MAMMOGRAPHY REPORT ---
BILATERAL DIGITAL SCREENING MAMMOGRAM TOMOSYNTHESIS WITH CAD: 04/24/2018 CLINICAL HISTORY: Routine screening. Patient has no complaints. TECHNIQUE: The study was acquired using full field digital technology and interpreted from soft copy. Breast tomosynthesis in addition to standard 2D mammography was performed. Current study was also ev aluated with a Computer Aided Detection (CAD) system. COMPARISON: Comparison is made to exams dated: 03/27/2017 mammogram, 02/16/2016 mammogram, 02/09/2015 ma mmogram, 03/19/2012 mammogram, 05/22/2010 mammogram - [facility], and 04/20/2008. BREAST COMPOSITION: There are scattered areas of fibroglandular density in both breasts. FINDINGS: No suspicious masses, calcifications, or areas of architectural distortion are noted in either breast . There has been no significant interval change compared to prior exams. IMPRESSION: ACR BI-RADS CATEGORY 1: NEGATIVE There is no mammographic evidence of malignancy. A 1 year screening mammogram is recommended.( 019) The patient will receive written notification of the results. Some breast cancers are not detected with mammography. A negative mammographic report should not goyo y biopsy if a clinically suggestive mass is present. Radha Rivas M.D. ah/:04/24/2018 13:38:37 [employer]: RT [place](Monet)(M), [facility] letter sent: Normal 1/2 BI-RADS Code: ACR BI-RADS Category 1: Negative
== END | disposition home or self-care (01) ==
LOC: C.MAMM 13:05
PROVIDERS: ATTEND Internal Medicine
DX: Z12.31 Encounter for screening mammogram for malignant neoplasm of breast (principal)

== ENCOUNTER 2018-04-27 15:45 | Emergency (ER) | payer OTHER ==
[~2018-04-27] VITALS: Ht 162.6 cm; Wt 94.5 kg
[~2018-04-27 15:45] MED LIST changes: -ADVIN25/60 INH; -ALBINS/ NEB; -AMT/50 PO; -ATV5X PO; -BCTCR/30 TOP; -CALC0.5C PO; -CETI10TA84 PO; -DIPH1TAB87 PO; -EPP3/2 IM; -FNTTP50 TOP; -HYDR25CA PO; -INSDGIPEN SC; -LEVA45AE INH; -LEVO50TA6 PO; -LMTHP PO; -LPT40 PO; -LSX40 PO; -METH-307 PO; -METO100T14 PO; -METO2.5T PO; -MULTTAB58 PO; -NRN800 PO; -NRV/10 PO; -ONDA-170 PO; -OXGN; -PANT40TA PO; -POLY335019 PO; -RANI300T2 PO; -SPRIN/30 INH; -VENL150C2 PO; -VENL75CA88 PO; -WARF-246 PO
[2018-04-27 15:49] VITALS: TEMP 36.8; Ht 162.6 cm; Wt 94.5 kg
[2018-04-27] MEDS ORDERED: CALC0.5C PO (16:01)
[2018-04-27] MEDS ORDERED: METO100T14 PO (16:08)
[2018-04-27] MEDS ORDERED: LSX40 PO (16:26)
[2018-04-27] MEDS ORDERED: PANT40TA PO (16:50)
[2018-04-27] MEDS ORDERED: INSDGIPEN SC (16:50)
[2018-04-27] MEDS ORDERED: ALBINS/ NEB (16:53)
[2018-04-27] MEDS ORDERED: POLY335019 PO (16:55)
[2018-04-27] MEDS ORDERED: BCTCR/30 TOP (16:55)
[2018-04-27] MEDS ORDERED: SODIUM CHLORIDE 0.9% 1000ML 1,000 ML IV STA (16:56)
[2018-04-27] MEDS ORDERED: ONDANSETRON INJ 2 MG/ML 2 ML VIAL IV STA (16:56)
[2018-04-27] MEDS ORDERED: HYDROmorphone INJ 1 MG/ML SYR IV PRN (17:00)
[2018-04-27] MEDS ORDERED: ONDA-170 PO (17:01)
[2018-04-27] MEDS ORDERED: OXGN (17:24)
--- NOTE | 2018-04-27 17:24 | EMERGENCY ROOM VISIT NOTE ---
History Report prepared by [place]: Tera Edmondson Under the Supervision of: Dr. Felix Charlton M.D. First contact with patient: 16:47 Chief Complaint: INFECTION Stated Complaint: INFECTION IN GROIN AREA Nursing Triage Summary: left groin infected, red and painful History of Present Illness The patient is a 62 year old female who presents to the Emergency Room with complaints of suprapubic soreness due to a rash that began 5 days ago. The patient also reports intermittent fevers as high as 101 and nausea for the past few days. The patient notes that she took Tylenol for the fever at about 1000 this morning. She also states that she was put on antibiotics for 7 days but finished them last Friday. The patient denies dysuria or pain when coughing, vomiting, chest pain, and shortness of breath. She also states that she has a history of diabetes mellitus, depression, and back and leg issues. Source of History: patient Onset: 5 days ago Position: abdomen Quality: other (Soreness) Timing: intermittent (Fevers) Associated Symptoms: + fevers, + nausea, No cough, No chest pain, No SOB, No vomiting, No urinary symptoms Review of Systems See HPI for pertinent positives and negatives. A total of ten systems were reviewed and were otherwise negative. Past Medical & Surgical Medical Problems: (1) Asthma (2) Atrial fibrillation (3) Bipolar disorder (4) CHF (congestive heart failure) (5) Chronic cor pulmonale (6) Chronic pain (7) Chronic respiratory failure (8) COPD, severe (9) Cor pulmonale (chronic) (10) Depression (11) DM type 2 (diabetes mellitus, type 2) (12) Gastroparesis (13) GERD (gastroesophageal reflux disease) (14) History of Clostridium difficile infection (15) History of DVT (deep vein thrombosis) (16) HTN (hypertension) (17) Hypothyroidism (18) DARIUS on CPAP (19) Osteoarthritis (20) PAF (paroxysmal atrial fibrillation) Surgical Problems: (1) H/O: hysterectomy (2) Hx of appendectomy (3) Hx of cholecystectomy (4) Hx of lumpectomy (5) Hx of mitral valve repair (6) Hx of tubal ligation (7) Hx of umbilical hernia repair Family History Diabetes mellitus MOTHER FH: Crohn's disease SISTER Hypertension MOTHER Social History Smoking Status: Current Every Day Smoker Alcohol Use: none Housing Status: lives with significant other Current/Historical Medications Scheduled Amitriptyline HCl (Amitriptyline HCl), 50 MG PO HS Amlodipine Besylate (Amlodipine Besylate), 10 MG PO QAM Atorvastatin (Lipitor), 40 MG PO HS Calcitriol (Calcitriol), 0.5 MCG PO 3XWK Cetirizine (Zyrtec), 10 MG PO QAM Cholecalciferol (Vitamin D3), 1,000 INTER.UNIT PO QAM Docusate Sodium (Docusate Sodium), 100 MG PO DAILY Fentanyl (Duragesic), 50 MCG TOP [id number] Fluticasone Prop/Salmeterol (Advair Diskus 250/50 60 Dose), 1 PUFF INH BID Furosemide (Furosemide), 40 MG PO BID Gabapentin (Gabapentin), 800 MG PO TID Home O2 Therapy (Oxygen), 3 LITERS NA CONTINOUS Insulin Glargine (Lantus Solostar), 16 UNITS SC BID Levalbuterol Tartrate (Levalbuterol Tartrate Hfa), 1 PUFF INH DAILY Levothyroxine Sodium (Levothyroxine Sodium), 50 MCG PO DAILY Metolazone (Zaroxolyn), 2.5 MG PO WK Metoprolol Tartrate (Lopressor) (Lopressor), 100 MG PO BID Multiple Vitamin (Multivitamin), 1 TAB PO QAM Mupirocin 2% (Bactroban 2%), 1 APPLN TOP BID Pantoprazole (Protonix), 40 MG PO QAM Potassium Chloride (Micro-K Ext Rel), 10 MEQ PO BID Ranitidine Hcl (Zantac), 300 MG PO HS Tiotropium Webster (Spiriva Handihaler), 1 CAP INH QAM Venlafaxine Hcl (Effexor Xr), 75 MG PO DAILY Venlafaxine Hcl (Effexor Xr), 150 MG PO DAILY Warfarin Sodium (Warfarin Sodium), 5 MG PO 2XWK Warfarin Sodium (Warfarin Sodium), 7.5 MG PO 5XWK Scheduled PRN Albuterol Sulf (Proventil 0.083% 2.5MG/3ML), 2.5 MG NEB Q6H PRN for SOB/Wheezing Diphenhydramine Hcl (Benadryl Allergy), 25-50 MG PO 4-6HOURS PRN for Seasonal Allergies Diphenoxylate/Atropine (Diphenoxylate/Atropine 2.5-0.025 mg), 1 TAB PO BID PRN for Diarrhea Epinephrine (Epipen), 0.3 MG IM UD PRN for ALLERGIC REACTION Hydroxyzine Pamoate (Vistaril), 25 MG PO Q6H PRN for Itching Lorazepam (Lorazepam), 0.5 MG PO HS PRN for Anxiety Methocarbamol (Robaxin), 750 MG PO TID PRN for Muscle Spasm Ondansetron Hcl (Zofran), 8 MG PO BID PRN for Nausea Oxycodone HCl (Oxycodone HCl), 10 MG PO Q6H PRN for Pain Polyethylene Glycol 3350 (Miralax), 17 GM PO DAILY PRN for Constipation Allergies Coded Allergies: BEE STING (Verified Allergy, Severe, SWELLING, 02/08/18) Lisinopril (Verified Allergy, Intermediate, FACE SWELLING, 02/08/18) Potato (Verified Allergy, Intermediate, BBQ chips - facial swelling, ) Metronidazole (Verified Allergy, Mild, FACE SWELLING, 02/08/18) Martin (Verified Allergy, Mild, HIVES, 02/08/18) Alprazolam (Verified Allergy, Unknown, RED FACE, FACE SWELLING, 02/08/18) Lactose (Verified Adverse Reaction, Intermediate, VOMTING DIARRHEA ABDOMINAL PAIN, 02/08/18) Prednisone (Verified Adverse Reaction, Mild, unknown, 02/08/18) Colesevelam (Verified Adverse Reaction, Unknown, unknown, 02/08/18) Antimony (Verified Adverse Reaction, Unknown, jitters, 02/08/18) Physical Exam Vital Signs Date Time Temp Pulse Resp B/P (MAP) Pulse Ox O2 Delivery O2 Flow Rate FiO2 04/27/18 21:27 84 18 149/64 96 04/27/18 19:43 65 18 132/48 96 Room Air 04/27/18 17:39 93 Nasal Cannula 3.0 04/27/18 17:36 78 147/85 83 Room Air 04/27/18 17:25 70 16 147/85 94 Room Air 04/27/18 15:49 36.8 77 20 135/77 94 Room Air Physical Exam Physical Exam GENERAL: She is oriented to person, place, and time. She appears well- developed and well-nourished. She does not appear distressed. HENT: Exam performed. Head: Normocephalic and atraumatic. Right Ear: External ear normal. No mastoid tenderness. Left Ear: External ear normal. No mastoid tenderness. Mouth/Throat: The oropharynx is clear and moist. No trismus in the jaw. No dental abscesses or uvula swelling. No oropharyngeal exudate or tonsillar abscesses. EYES: Conjunctivae and EOM are normal. Pupils are equal, round, and reactive to light. Right eye exhibits no discharge. Left eye exhibits no discharge. No scleral icterus. NECK: Normal range of motion. Neck supple. No JVD present. No spinous process tenderness present. No carotid bruit present. No rigidity. No tracheal deviation and normal range of motion present. No Brudzinski's sign and no Kernig 's sign noted. CV: Normal rate, regular rhythm, normal heart sounds and intact distal pulses. There is no peripheral edema. Palpable radial pulses bue. PULM/CHEST: Effort normal and breath sounds normal. No respiratory distress. No stridor. She has no wheezes. She has no rales. Chest Wall: She exhibits no tenderness. Left breast showed macular erythematous rash in left inguinal region, no vesicles or discharge, no fluctuance, no bullae. ABD: The abdomen is soft. Bowel sounds are normal. She has no distension. No mass is present. There is no tenderness. There is no rebound, no guarding, no Simpson's sign and no tenderness at McBurney's point. Rovsig negative, obese MUSC/SKEL: Normal range of motion. There is no peripheral edema, tenderness or deformity. LYMPH: No cervical adenopathy. NEURO: She is alert and oriented to person, place, and time. She has normal strength. No cranial nerve deficit or sensory deficit. Coordination and gait normal. GCS eye subscore is 4. GCS verbal subscore is 5. GCS motor subscore is 6. Cerebellar tests wnl. SKIN: Skin is warm and dry. She is not diaphoretic. Macular erythematous rash in left inguinal region, no vesicles or discharge, no fluctuance, no bullae. Macular erythematous rash under the left breast, no vesicles or discharge, no fluctuance, no bullae. PSYCH: She has a normal mood and affect. Behavior is normal. Judgment and thought content normal. Medical Decision & Procedures Laboratory Results 04/27/18 17:20 Red Blood Count 4.46, Mean Corpuscular Volume 90.6, Mean Corpuscular Hemoglobin 29.8, Mean Corpuscular Hemoglobin Concent 32.9, Mean Platelet Volume 10.3, Neutrophils (%) (Auto) 70.8, Lymphocytes (%) (Auto) 18.9, Monocytes (%) (Auto) 8.0, Eosinophils (%) (Auto) 1.9, Basophils (%) (Auto) 0.2, Neutrophils # (Auto) 6.19, Lymphocytes # (Auto) 1.65, Monocytes # (Auto) 0.70, Eosinophils # (Auto) 0.17, Basophils # (Auto) 0.02 04/27/18 17:20 Test 04/27/18 17:20 04/27/18 17:30 04/27/18 18:00 White Blood Count 8.75 K/uL (4.8-10.8) Red Blood Count 4.46 M/uL (4.2-5.4) Hemoglobin 13.3 g/dL (12.0-16.0) Hematocrit 40.4 % (37-47) Mean Corpuscular Volume 90.6 fL (80-100) Mean Corpuscular Hemoglobin 29.8 pg (25-34) Mean Corpuscular Hemoglobin Concent 32.9 g/dl (32-36) Platelet Count 270 K/uL (130-400) Mean Platelet Volume 10.3 fL (7.4-10.4) Neutrophils (%) (Auto) 70.8 % Lymphocytes (%) (Auto) 18.9 % Monocytes (%) (Auto) 8.0 % Eosinophils (%) (Auto) 1.9 % Basophils (%) (Auto) 0.2 % Neutrophils # (Auto) 6.19 K/uL (1.4-6.5) Lymphocytes # (Auto) 1.65 K/uL (1.2-3.4) Monocytes # (Auto) 0.70 K/uL (0.11-0.59) Eosinophils # (Auto) 0.17 K/uL (0-0.5) Basophils # (Auto) 0.02 K/uL (0-0.2) RDW Standard Deviation 49.8 fL (36.4-46.3) RDW Coefficient of Variation 15.1 % (11.5-14.5) Immature Granulocyte % (Auto) 0.2 % Immature Granulocyte # (Auto) 0.02 K/uL (0.00-0.02) Anion Gap 5.0 mmol/L (3-11) Est Creatinine Clear Calc Drug Dose 67.2 ml/min Estimated GFR () 72.2 Estimated GFR (Non- 62.3 BUN/Creatinine Ratio 17.2 (10-20) Calcium Level 9.0 mg/dl (8.5-10.1) Total Bilirubin 0.3 mg/dl (0.2-1) Direct Bilirubin 0.1 mg/dl (0-0.2) Aspartate Amino Transf (AST/SGOT) 39 U/L (15-37) Alanine Aminotransferase (ALT/SGPT) 48 U/L (12-78) Alkaline Phosphatase 77 U/L (45-117) Total Protein 7.2 gm/dl (6.4-8.2) Albumin 3.2 gm/dl (3.4-5.0) Lipase 143 U/L (73-393) Urine Color YELLOW Urine Appearance CLEAR (CLEAR) Urine pH 6.5 (4.5-7.5) Urine Specific [place] 1.005 (1.000-1.030) Urine Protein NEG (NEG) Urine Glucose (UA) NEG (NEG) Urine Ketones NEG (NEG) Urine Occult Blood TRACE (NEG) Urine Nitrite NEG (NEG) Urine Bilirubin NEG (NEG) Urine Urobilinogen NEG (NEG) Urine Leukocyte Esterase NEG (NEG) Urine WBC (Auto) 0 /hpf (0-5) Urine RBC (Auto) 0-4 /hpf (0-4) Urine Hyaline Casts (Auto) 0 /lpf (0-5) Urine Epithelial Cells (Auto) 0-5 /lpf (0-5) Urine Bacteria (Auto) NEG (NEG) Lactic Acid Level 0.7 mmol/L (0.4-2.0) Laboratory results reviewed by me Medications Administered Medications (Trade) Dose Ordered Sig/Artemio Route Start Time Stop Time Status Last Admin Dose Admin Hydromorphone HCl (Dilaudid Inj) 1 mg NOW PRN IV 04/27/18 17:00 04/27/18 22:01 DC 04/27/18 17:25 1 MG Ondansetron HCl (Zofran Inj) 4 mg NOW STAT IV 04/27/18 16:56 04/27/18 16:58 DC 04/27/18 17:25 4 MG Sodium Chloride 1,000 ml @ 125 mls/hr Q8H STAT IV 04/27/18 16:56 04/27/18 22:01 DC 04/27/18 17:25 125 MLS/HR Vancomycin HCl (Vancomycin 1gm Ed/Asu Omnicell) 1 gm NOW STAT IV 04/27/18 18:41 04/27/18 18:42 DC 04/27/18 18:53 1 GM Piperacillin Sod/ Tazobactam Sod (Zosyn Iv) 3.375 gm NOW STAT IV 04/27/18 18:44 04/27/18 18:45 DC 04/27/18 19:40 3.375 GM ED Course 1653: The patient was evaluated in room C4. A complete history and physical exam was performed. 1655: Sodium Chloride 1000ml @ 125 mls/hr IV, Ondansetron 4mg IV 170: Hydromorphone HCl 1mg IV 1810: The patient's PCP records were obtained by the block and case maker. The patient has a long history of cellulitis. The patient received Nystatin and Doxycycline by the PCP on April 13. 1840: Vancomycin HCl 1gm IV 1843: Piperacillin Sod/ Tazobactam Sod 3.375gm IV 1844: I spoke with Codie DEVRIES who agreed to admit the patient due to her history of diabetes and reported fevers. She also suggested Zosyn. After having this discussion I updated the patient. 1929: I reevaluated the patient and vital signs are stable. The patient is refusing admission stating she does not want to stay in the hospital and wants to go home so she will finish her last dose of antibiotics and follow up with her PCP tomorrow. I did discuss with the patient that I recommended her coming into the hospital giving her history of diabetes, reported fevers, reported discharge. I explained to her that if she left she could risk worsening and possibly develop worsening cellulitis and possibly early sepsis. The patient states she understands and still wants to go home. Patient will finish IV antibiotics and be discharged home. No prescription for antibiotic will be given as she got a dose of Zosyn and vancomycin in the emergency department. She will follow-up with the PCP tomorrow to determine if further antibiotics are warranted. 2049: DISCHARGE - Plan of care discussed with patient and questions answered. The patient was given both verbal and printed discharge instructions. The patient verbalized understanding and ability to comply. The patient is to seek outpatient follow up as noted in the discharge instructions. The patient verbalized understanding and ability to comply. The patient is discharged in stable condition. The patient was instructed to return for worsening symptoms. Medical Decision 1653: The patient was evaluated in room C4. A complete history and physical exam was performed. 165: Sodium Chloride 1000ml @ 125 mls/hr IV, Ondansetron 4mg IV 170: Hydromorphone HCl 1mg IV 1810: The patient's PCP records were obtained by the block and case maker. The patient has a long history of cellulitis. The patient received Nystatin and Doxycycline by the PCP on April 13. 1840: Vancomycin HCl 1gm IV 1843: Piperacillin Sod/ Tazobactam Sod 3.375gm IV 1844: I spoke with Codie DEVRIES who agreed to admit the patient due to her history of diabetes and reported fevers. She also suggested Zosyn. After having this discussion I updated the patient. 1929: I reevaluated the patient and vital signs are stable. The patient is refusing admission stating she does not want to stay in the hospital and wants to go home so she will finish her last dose of antibiotics and follow up with her PCP tomorrow. I did discuss with the patient that I recommended her coming into the hospital giving her history of diabetes, reported fevers, reported discharge. I explained to her that if she left she could risk worsening and possibly develop worsening cellulitis and possibly early sepsis. The patient states she understands and still wants to go home. Patient will finish IV antibiotics and be discharged home. No prescription for antibiotic will be given as she got a dose of Zosyn and vancomycin in the emergency department. She will follow-up with the PCP tomorrow to determine if further antibiotics are warranted. 2049: DISCHARGE - Plan of care discussed with patient and questions answered. The patient was given both verbal and printed discharge instructions. The patient verbalized understanding and ability to comply. The patient is to seek outpatient follow up as noted in the discharge instructions. The patient verbalized understanding and ability to comply. The patient is discharged in stable condition. The patient was instructed to return for worsening symptoms. Medication Reconcilliation Current Medication List: was personally reviewed by me Blood Pressure Screening Patient's blood pressure: Elevated blood pressure Blood pressure disposition: Elevated BP felt to be situational Consults Time Called: 1841 Consulting Physician: Codie DEVRIES Returned Call: [phone] Discussed the patient's case with Codie DEVRIES who agreed to admit the patient due to her history of diabetes. She also suggested Zosyn. Impression Primary Impression: Cellulitis Scribe Attestation The scribe's documentation has been prepared under my direction and personally reviewed by me in its entirety. I confirm that the note above accurately reflects all work, treatment, procedures, and medical decision making performed by me. The chart was completed utilizing [employer] Speech voice recognition software. Grammatical errors, random word insertions, pronoun errors, and incomplete sentences are an occasional consequence of this system due to software limitations, ambient noise, and hardware issues. Any formal questions or concerns about the content, text, or information contained within the body of this dictation should be directly addressed to the physician for clarification. Departure Information Dispostion Home / Self-Care Referrals Manoj Goins D.O. (PCP) Forms HOME CARE DOCUMENTATION FORM, IMPORTANT VISIT INFORMATION, WORK / SCHOOL INSTRUCTIONS Patient Instructions My [facility] Problem Qualifiers Primary Impression: Cellulitis Site of cellulitis: unspecified site Qualified Codes: L03.90 - Cellulitis, unspecified
[2018-04-27] MEDS ORDERED: WARF-246 PO ×2 (17:45)
[2018-04-27 18:00] LABS: ALBUMIN 3.2 gm/dl (3.4-5.0); CREATININE 0.98 mg/dl (0.60-1.20); POTASSIUM 3.5 mmol/L (3.5-5.1); TOTAL PROTEIN 7.2 gm/dl (6.4-8.2)
[2018-04-27] MEDS ORDERED: ADVIN25/60 INH (18:00)
[2018-04-27] MEDS ORDERED: METH-307 PO (18:05)
[2018-04-27] MEDS ORDERED: METO2.5T PO (18:05)
[2018-04-27] MEDS ORDERED: VENL150C2 PO (18:05)
[2018-04-27] MEDS ORDERED: LEVA45AE INH (18:05)
[2018-04-27] MEDS ORDERED: HYDR25CA PO (18:05)
[2018-04-27] MEDS ORDERED: DIPH1TAB87 PO (18:05)
[2018-04-27] MEDS ORDERED: LMTHP PO (18:05)
[2018-04-27] MEDS ORDERED: VENL75CA88 PO (18:05)
[2018-04-27] MEDS ORDERED: RANI300T2 PO (18:05)
[2018-04-27] MEDS ORDERED: NRN800 PO (18:07)
[2018-04-27] MEDS ORDERED: AMT/50 PO (18:07)
[2018-04-27] MEDS ORDERED: LPT40 PO (18:18)
[2018-04-27] MEDS ORDERED: NRV/10 PO (18:18)
[2018-04-27 18:24] LABS: BASO % 0.2 %; BASO ABS # 0.02 K/uL (0-0.2); EOS % 1.9 %; EOS ABS # 0.17 K/uL (0-0.5); HEMATOCRIT 40.4 % (37-47); HEMOGLOBIN 13.3 g/dL (12.0-16.0); IG# 0.02 K/uL (0.00-0.02); LYMPH % 18.9 %; LYMPH ABS # 1.65 K/uL (1.2-3.4); MEAN CELL VOLUME 90.6 fL (80-100); MEAN CORPUSCULAR HEMOGLOBIN 29.8 pg (25-34); MEAN CORPUSCULAR HGB CONC 32.9 g/dl (32-36); MEAN PLATELET VOLUME 10.3 fL (7.4-10.4); NEUT % 70.8 %; NEUT ABS # 6.19 K/uL (1.4-6.5); PLATELET COUNT 270 K/uL (130-400); RED CELL DISTRIBUTION WIDTH CV 15.1 % (11.5-14.5); RED CELL DISTRIBUTION WIDTH SD 49.8 fL (36.4-46.3); WHITE BLOOD COUNT 8.75 K/uL (4.8-10.8)
[2018-04-27] MEDS ORDERED: VANCOMYCIN 1GM ED/ASU OMNICELL IV STA (18:41)
[2018-04-27] MEDS ORDERED: PIPERACILLIN/TAZOBACTAM 3.375 GM/100ML D5W IV STA (18:44)
[2018-04-27] MEDS ORDERED: ATV5X PO (20:24)
[2018-04-27] MEDS ORDERED: LEVO50TA6 PO (20:38)
[2018-04-27 21:27] VITALS: BP 149/64; PULSE 84; O2SAT 96
[2018-04-27] MEDS ORDERED: SPRIN/30 INH (22:04)
[2018-04-27] MEDS ORDERED: FNTTP50 TOP (22:15)
[2018-04-27] MEDS ORDERED: CETI10TA84 PO (23:13)
[2018-04-27] MEDS ORDERED: EPP3/2 IM (23:16)
[2018-04-27] MEDS ORDERED: MULTTAB58 PO (23:16)
== END 2018-04-27 21:09 | disposition home or self-care (01) ==
LOC: C.EDB 15:46 → C.EDC 21:09
DX: L03.90 Cellulitis, unspecified (principal); E11.9 Type 2 diabetes mellitus without complications; F32.9 Major depressive disorder, single episode, unspecified; J45.909 Unspecified asthma, uncomplicated; F31.9 Bipolar disorder, unspecified; I11.9 Hypertensive heart disease without heart failure; I50.9 Heart failure, unspecified; J44.9 Chronic obstructive pulmonary disease, unspecified; I27.81 Cor pulmonale (chronic); E03.9 Hypothyroidism, unspecified; I48.0 Paroxysmal atrial fibrillation; F17.200 Nicotine dependence, unspecified, uncomplicated; Z86.718 Personal history of other venous thrombosis and embolism; Z99.81 Dependence on supplemental oxygen; Z79.51 Long term (current) use of inhaled steroids; Z79.4 Long term (current) use of insulin; Z79.899 Other long term (current) drug therapy; Z79.01 Long term (current) use of anticoagulants; Z91.030 Bee allergy status; Z91.018 Allergy to other foods; Z88.8 Allergy status to other drugs, medicaments and biological substances; Z91.011 Allergy to milk products

== ENCOUNTER 2018-09-14 01:47 | Inpatient (IN) ==
[2018-09-14] MEDS ORDERED: ONDANSETRON INJ 2 MG/ML 2 ML VIAL IV STA (02:03)
[2018-09-14 02:11] LABS: Basophils # (auto) 0.01 K/uL (0-0.2); Basophils % (auto) 0.1 %; Eosinophils # (auto) 0.21 K/uL (0-0.5); Eosinophils % (auto) 1.8 %; Hematocrit (blood only) 37.7 % (37-47); Hemoglobin 12.4 g/dL (12.0-16.0); Immature Granulocytes # (auto) 0.05 K/uL (0.00-0.02); Immature Granulocytes % (auto) 0.4 %; Lymphocytes # (auto) 1.79 K/uL (1.2-3.4); Lymphocytes % (auto) 14.9 %; Mean Corpuscular Hgb Conc 32.9 g/dL (32-36); Mean Platelet Volume 9.6 fL (7.4-10.4); Monocytes # (auto) 0.92 K/uL (0.11-0.59); Monocytes % (auto) 7.7 %; Neutrophils # (auto) 9.01 K/uL (1.4-6.5); Neutrophils % (auto) 75.1 %; Platelet Count 299 K/uL (130-400); RDW Coefficient of Variation 15.1 % (11.5-14.5); RDW Standard Deviation 51.3 fL (36.4-46.3); White Blood Count 11.99 K/uL (4.8-10.8)
[2018-09-14] MEDS ORDERED: SODIUM CHLORIDE 0.9% 1000ML 1,000 ML IV SCH ×2 (02:15→06:49)
[2018-09-14 02:47] LABS: Albumin Globulin Ratio 0.6 (0.9-2); Albumin Level 2.6 gm/dl (3.4-5.0); BUN Creatinine Ratio 14.3 (10-20); Bilirubin,Total 0.4 mg/dl (0.2-1); Calcium 8.6 mg/dl (8.5-10.1); Creatinine Clr Calc Pharmacy 50.8 ml/min; Est GFR (African American) 46.5; Est GFR (Non-African American) 40.1; Globulin 4.2 gm/dl (2.5-4.0); Total Protein 6.8 gm/dl (6.4-8.2); Troponin I 0.022 ng/ml (0-0.045)
[2018-09-14 03:20] LABS: Magnesium 1.9 mg/dl (1.8-2.4); Potassium 3.8 mmol/L (3.5-5.1)
[2018-09-14 03:30] LABS: Prothrombin Time 50.9 Seconds (9.0-12.0)
[2018-09-14 03:32] LABS: INR 5.6 (0.9-1.1); Partial Thromboplastin Time 50.7 Seconds (21.0-31.0)
[2018-09-14] MEDS ORDERED: METOPROLOL TARTRATE 1 MG/ML VIAL IV STA (04:56)
[2018-09-14 05:13] LABS: Appearance Urine Clear (Clear); Bilirubin Urine Negative (Negative); Color Urine Yellow; Glucose Urine UA Trace (Negative); Ketones Urine Negative (Negative); Leukocyte Esterase Urine Negative (Negative); Nitrite Urine Negative (Negative); Protein Urine Negative (Negative); Specific Gravity Urine 1.008 (1.000-1.030); Urobilinogen Urine Negative (Negative); pH Urine 5.5 (4.5-7.5)
--- NOTE | 2018-09-14 05:40 | Emergency Department Note ---
ED Visit Note I saw this patient in conjunction with Ch[place] Ritter PA-C. I agree with his decision making and treatment plan. .
--- NOTE | 2018-09-14 05:58 | Emergency Department Note ---
History of Present Illness General Chief complaint: Abdominal Pain Time Seen by Provider: 09/14/18 01:51 History of Present Illness Maximum Pain Intensity: 3 This is a 62-year-old female presenting to the emergency department for evaluation of diarrhea for the past 3 days. The patient states that she has had roughly 8 episodes of diarrhea each day, and she is beginning to feel weak and dehydrated. The patient was recently at this facility where she was trying to undergo cardioversion for atrial fibrillation. The patient was found to be with a low INR, and cardiology increased her Coumadin dose and will reschedule her cardioversion. The patient states that she is feeling slightly lightheaded and does have some symptomatic palpitations. She does not report distinct chest pain. She has a history of CHF and has been wearing her oxygen to help with breathing. She does not report fever or chills. She does not have recent travel history, and denies recent antibiotic use. She has tried to treat herself at home with Imodium and Zofran, however this has not significantly improved her symptoms. She rates her overall discomfort a 6/10. Home Medications Home Medications Medication Instructions Recorded Confirmed Type albuterol sulfate 2.5 mg INHALATION Q6 PRN 06/19/18 09/14/18 History amitriptyline 50 mg PO HS 06/19/18 09/14/18 History amlodipine 10 mg PO QAM 06/19/18 09/14/18 History atorvastatin 40 mg PO HS 06/19/18 09/14/18 History calcitriol 0.5 mcg PO DAILY 06/19/18 09/14/18 History cetirizine 10 mg PO HS 06/19/18 09/14/18 History cholecalciferol (vitamin D3) 1,000 unit PO QAM 06/19/18 09/14/18 History [Vitamin D3] docusate sodium 100 mg PO DAILY 06/19/18 09/14/18 History epinephrine [EpiPen] 0.3 mg IM Q3H PRN 06/19/18 09/14/18 History fentanyl [Duragesic] 1 patch TRANSDERMAL Q72H 06/19/18 09/14/18 History furosemide 60 mg PO BID 06/19/18 09/14/18 History gabapentin 800 mg PO TID 06/19/18 09/14/18 History insulin glargine [Lantus U-100 16 unit SUBCUT BID 06/19/18 09/14/18 History Insulin] methocarbamol 750 mg PO TID PRN 06/19/18 09/14/18 History multivitamin 1 tab PO QAM 06/19/18 09/14/18 History ondansetron 8 mg PO BID PRN 06/19/18 09/14/18 History pantoprazole 40 mg PO QAM 06/19/18 09/14/18 History polyethylene glycol 3350 [Miralax] 1 dose PO DAILY PRN 06/19/18 09/14/18 History potassium chloride 10 meq PO TID 06/19/18 09/14/18 History tiotropium bromide [Spiriva with 1 cap INHALATION QAM 06/19/18 09/14/18 History HandiHaler] venlafaxine 150 mg PO QAM 06/19/18 09/14/18 History warfarin 5 mg PO 5XD 06/19/18 09/14/18 History warfarin 7.5 mg PO 2XWK 06/19/18 09/14/18 History gabapentin 100 mg PO TID 09/14/18 09/14/18 History metoprolol tartrate 100 mg PO BID 09/14/18 09/14/18 History mupirocin 1 applic TOPICAL BID 09/14/18 09/14/18 History oxycodone 10 mg PO Q6H PRN 09/14/18 09/14/18 History trazodone 200 mg PO HS 09/14/18 09/14/18 History venlafaxine 75 mg PO QAM 09/14/18 09/14/18 History zolpidem 5 mg PO HS PRN 09/14/18 09/14/18 History Allergies Allergy/AdvReac Type Severity Reaction Status Date / Time bee venom protein (honey bee) Allergy Severe SWELLING Verified 09/14/18 04:12 lisinopril Allergy Intermediate FACE Verified 09/14/18 04:12 SWELLING potato Allergy Intermediate BBQ chips Verified 09/14/18 04:12 - facial swelling metronidazole Allergy Mild FACE Verified 09/14/18 04:12 SWELLING strawberry Allergy Mild HIVES Verified 09/14/18 04:12 alprazolam Allergy Unknown RED FACE, Verified 09/14/18 04:12 FACE SWELLING lactose AdvReac Intermediate VOMTING Verified 09/14/18 04:12 DIARRHEA ABDOMINAL PAIN prednisone AdvReac Mild unknown Verified 09/14/18 04:12 colesevelam AdvReac Unknown unknown Verified 09/14/18 04:12 lithium AdvReac Unknown jitters Verified 09/14/18 04:12 Past Med/Surg History Social History Current Living Situation: Alone Feels Safe at Home: Yes Smoking Status: Current every day smoker Tobacco Type: cigarettes Cigarettes per Day: 1/ PPD Hx Alcohol Use: No Hx Substance Use: No Beliefs That Will Affect Care: None Preferred Language: Portuguese Communication Ability: Effective Review of Systems A total of 10 systems reviewed and were otherwise negative Physical Exam Vital Signs Vital Signs - 24 hr 09/14/18 01:53 09/14/18 02:07 09/14/18 02:18 Temperature 37.1 C Temperature Source Oral Sepsis Recent Fever Within 48 Hours No Sepsis New/Unexplained Change in Mental Status No Sepsis Action Taken by Nursing No Action Required Pulse Rate 113 H Pulse Rate [Bilateral Apical] 116 H Respiratory Rate 22 22 Respiratory Effort / Characteristics Non-Labored Spontaneous Labored Normal for Patient Respiratory Depth Normal Normal Respiratory Pattern Regular Regular Blood Pressure 129/112 H Blood Pressure [Right Arm] 114/64 Blood Pressure Mean 117 Blood Pressure Mean [Right Arm] 80 Blood Pressure Position Sitting Pulse Oximetry 98 98 99 Oxygen Delivery Method Nasal Cannula Nasal Cannula Nasal Cannula Oxygen Flow Rate 3 3 3 09/14/18 03:43 09/14/18 05:05 09/14/18 05:47 Temperature Temperature Source Sepsis Recent Fever Within 48 Hours Sepsis New/Unexplained Change in Mental Status Sepsis Action Taken by Nursing Pulse Rate Pulse Rate [Bilateral Apical] 115 H 122 H 121 H Respiratory Rate 19 22 21 Respiratory Effort / Characteristics Respiratory Depth Respiratory Pattern Blood Pressure Blood Pressure [Right Arm] 133/72 110/74 92/46 L Blood Pressure Mean Blood Pressure Mean [Right Arm] 92 86 61 Blood Pressure Position Pulse Oximetry 100 93 98 Oxygen Delivery Method Nasal Cannula Nasal Cannula Nasal Cannula Oxygen Flow Rate 4 4 4 VITALS: Vitals are noted on the nurse's note and reviewed by myself. Vital signs with tachycardia GENERAL: Chronically ill-appearing female who does not appear toxic. She is wearing her oxygen and laying in the ER bed HEAD: Normocephalic atraumatic. EYES: Pupils equal round and reactive to light and accommodation. Conjunctivae without injection, sclerae without icterus. Extraocular movements intact. NECK: Supple without nuchal rigidity. No lymphadenopathy. No thyromegaly. HEART: Tachycardic rate and irregularly irregular rhythm LUNGS: Distant breath sounds bilateral with scattered crackles bilateral in the lower mills ABDOMEN: Positive normal bowel sounds x 4. Soft, nontender, without masses or organomegaly. MUSCULOSKELETAL: No muscle atrophy, erythema, or edema noted. Full range of motion in all extremities. NEURO: Patient was alert and oriented to person place and time. CN II through XII grossly intact. SKIN: The skin was without rashes, erythema, edema, or bruising. Capillary refill less than 2 seconds. Course Administered Medications Discontinued Medications Sodium Chloride (Nss 1000ml) 1,000 mls @ 999 mls/hr IV .Q1H1M JORGE Stop: 09/14/18 03:15 Last Infusion: 09/14/18 03:14 Dose: 0 mls/hr Admin: 09/14/18 02:17 Dose: 999 mls/hr Metoprolol Tartrate (Lopressor) 5 mg IV NOW STA Stop: 09/14/18 04:57 Last Admin: 09/14/18 05:49 Dose: Not Given Ondansetron HCl (Zofran) 4 mg IV NOW STA Stop: 09/14/18 02:04 Last Admin: 09/14/18 02:17 Dose: 4 mg Medical Decision Making Differential Diagnosis Differential diagnosis includes, but is not limited to: Viral illness, infectious colitis, diarrheal illness, viral or foodborne etiology, myocardial infarction, dysrhythmia, pericarditis, pneumothorax, aortic aneurysm/dissection , DVT/PE, anxiety, GERD, PUD, electrolyte imbalance, thyroid disorder, pneumonia , bronchitis, pancreatitis, and others Laboratory Data Result diagrams: 09/14/18 02:02 09/14/18 02:02 Lab Results 09/14/18 09/14/18 09/14/18 Range/Units 02:02 02:02 02:02 WBC 11.99 H (4.8-10.8) K/uL RBC 4.10 L (4.2-5.4) M/uL Hgb 12.4 (12.0-16.0) g/dL Hct 37.7 (37-47) % MCV 92.0 (80-100) fL MCH 30.2 (25-34) pg MCHC 32.9 (32-36) g/dL RDW Std Deviation 51.3 H (36.4-46.3) fL RDW Coeff of King 15.1 H (11.5-14.5) % Plt Count 299 (130-400) K/uL MPV 9.6 (7.4-10.4) fL Immature Gran % (Auto) 0.4 % Neut % (Auto) 75.1 % Lymph % (Auto) 14.9 % [place] % (Auto) 7.7 % Eos % (Auto) 1.8 % Baso % (Auto) 0.1 % Immature Gran # (Auto) 0.05 H (0.00-0.02) K/uL Neut # (Auto) 9.01 H (1.4-6.5) K/uL Lymph # (Auto) 1.79 (1.2-3.4) K/uL [place] # (Auto) 0.92 H (0.11-0.59) K/uL Eos # (Auto) 0.21 (0-0.5) K/uL Baso # (Auto) 0.01 (0-0.2) K/uL PT Cancelled INR Cancelled APTT Cancelled PTT Ratio Cancelled Sodium 139 (136-145) mmol/L Potassium 3.8 (3.5-5.1) mmol/L Chloride 100 (98-107) mmol/L Carbon Dioxide 32 (21-32) mmol/L Anion Gap 7.0 (3-11) BUN 20 H (7-18) mg/dl Creatinine 1.41 H (0.6-1.2) mg/dl Est Cr Clr Drug Dosing 50.8 ml/min Est GFR ( Amer) 46.5 Est GFR (Non-Af Amer) 40.1 BUN/Creatinine Ratio 14.3 (10-20) Glucose 224 H (70-99) mg/dl Calcium 8.6 (8.5-10.1) mg/dl Magnesium 1.9 (1.8-2.4) mg/dl Total Bilirubin 0.4 (0.2-1) mg/dl AST 38 H (15-37) U/L ALT 58 (12-78) U/L Alkaline Phosphatase 112 (45-117) U/L Troponin I 0.022 (0-0.045) ng/ml Total Protein 6.8 (6.4-8.2) gm/dl Albumin 2.6 L (3.4-5.0) gm/dl Globulin 4.2 H (2.5-4.0) gm/dl Albumin/Globulin Ratio 0.6 L (0.9-2) Lipase 122 (73-393) U/L TSH 1.910 (0.300-4.500) uIu/ml Urine Color Urine Appearance (Clear) Urine pH (4.5-7.5) Ur Specific [place] (1.000-1.030) Urine Protein (Negative) Urine Glucose (UA) (Negative) Urine Ketones (Negative) Urine Blood (Negative) Urine Nitrite (Negative) Urine Bilirubin (Negative) Urine Urobilinogen (Negative) Ur Leukocyte Esterase (Negative) 09/14/18 09/14/18 09/14/18 Range/Units 02:53 03:55 05:05 WBC (4.8-10.8) K/uL RBC (4.2-5.4) M/uL Hgb (12.0-16.0) g/dL Hct (37-47) % MCV (80-100) fL MCH (25-34) pg MCHC (32-36) g/dL RDW Std Deviation (36.4-46.3) fL RDW Coeff of King (11.5-14.5) % Plt Count (130-400) K/uL MPV (7.4-10.4) fL Immature Gran % (Auto) % Neut % (Auto) % Lymph % (Auto) % [place] % (Auto) % Eos % (Auto) % Baso % (Auto) % Immature Gran # (Auto) (0.00-0.02) K/uL Neut # (Auto) (1.4-6.5) K/uL Lymph # (Auto) (1.2-3.4) K/uL [place] # (Auto) (0.11-0.59) K/uL Eos # (Auto) (0-0.5) K/uL Baso # (Auto) (0-0.2) K/uL PT 50.9 H INR 5.6 H* APTT 50.7 H* PTT Ratio 2.0 Sodium (136-145) mmol/L Potassium (3.5-5.1) mmol/L Chloride (98-107) mmol/L Carbon Dioxide (21-32) mmol/L Anion Gap (3-11) BUN (7-18) mg/dl Creatinine (0.6-1.2) mg/dl Est Cr Clr Drug Dosing ml/min Est GFR ( Amer) Est GFR (Non-Af Amer) BUN/Creatinine Ratio (10-20) Glucose (70-99) mg/dl Calcium (8.5-10.1) mg/dl Magnesium (1.8-2.4) mg/dl Total Bilirubin (0.2-1) mg/dl AST (15-37) U/L ALT (12-78) U/L Alkaline Phosphatase (45-117) U/L Troponin I 0.029 (0-0.045) ng/ml Total Protein (6.4-8.2) gm/dl Albumin (3.4-5.0) gm/dl Globulin (2.5-4.0) gm/dl Albumin/Globulin Ratio (0.9-2) Lipase (73-393) U/L TSH (0.300-4.500) uIu/ml Urine Color Yellow Urine Appearance Clear (Clear) Urine pH 5.5 (4.5-7.5) Ur Specific [place] 1.008 (1.000-1.030) Urine Protein Negative (Negative) Urine Glucose (UA) Trace H (Negative) Urine Ketones Negative (Negative) Urine Blood Negative (Negative) Urine Nitrite Negative (Negative) Urine Bilirubin Negative (Negative) Urine Urobilinogen Negative (Negative) Ur Leukocyte Esterase Negative (Negative) ECG Data Additional Comments: Atrial fibrillation with rapid ventricular response @117 bpm Right bundle branch block Abnormal ECG When compared with ECG of 24-JUN-2018 10:20, Atrial fibrillation has replaced Sinus rhythm MDM Narrative Physical exam and history were performed. Nursing notes, EMR, and Medication List were personally reviewed. Patient appears to have diarrheal illness bring her to the emergency department today. On presentation the patient is also complaining of some vague weakness. Her heart rate is elevated and evidently she does have a recent history of atrial fibrillation with RVR. EKG was performed, and does confirm that she is in A. fib with RVR. IV access was established and labs were obtained. The patient was hydrated with 1 L normal saline. Urine and stool studies were ordered and the patient was placed on the quality assurance monitor chassis. The patient's blood work is as above and was reviewed. She has a slightly elevated white blood cell count of 11.99. She does not have a significant anemia or gross electrolyte imbalance. KUB was reviewed by myself and my attending as showing gas but no significant obstructive process. The patient's INR is 5.6. Troponin is 0.022, and compared to her baseline over the past year this does seem slightly elevated. Repeat 90-minute troponin was performed, and is increasing to 0.029. Her urine does not show obvious infection with culture pending. Stool studies are still pending at this time. The case was discussed with my attending physician, Dr. Walton, and there is concern as the patient is in persistent atrial fibrillation with RVR. Despite fluids her pulse continues to be in the 110-120 range. Her troponin appears to be trending upwards, which may be a sign of cardiac fatigue secondary to the dehydration from her diarrheal illness. Considering the patient's extensive comorbidities including diabetes and COPD, the patient does not appear well for discharge home. She was given a dose of Lopressor here in the department to help slow her rate. The case was discussed with the on-call [facility] hospitalist. Please see their dictation for further patient course, plan, and disposition. The chart was completed utilizing [employer] Speech Voice Recognition Software. Grammatical errors, random word insertions, pronoun errors, and incomplete sentences are an occasional consequence of this system due to software limitations, ambient noise, and hardware issues. Any formal questions or concerns about the content, text, or information contained within the body of this dictation should be directly addressed to the provider for clarification. . Impression & Plan Atrial fibrillation with RVR, Elevated troponin, Diarrhea, Elevated INR Discharge Plan Visit Data Chief Complaint: Abdominal Pain ED Provider: Mary Walton ED Midlevel Provider: Chico Ritter Discharge Problem: Atrial fibrillation with RVR, Elevated troponin, Diarrhea, Elevated INR Forms Stand Alone Forms: Call Back Authorization, My [facility] Prescriptions Prescriptions: No Action multivitamin Tablet 1 tab PO QAM RF: 0 furosemide 40 mg Tablet 60 mg PO BID RF: 0 atorvastatin 40 mg Tablet 40 mg PO HS RF: 0 fentanyl [Duragesic] 50 mcg/hr Patch 72 Hour 1 patch TRANSDERMAL Q72H RF: 0 potassium chloride 10 mEq Capsule, Extended Release 10 meq PO TID RF: 0 insulin glargine [Lantus U-100 Insulin] 100 unit/mL Solution 16 unit SUBCUT BID RF: 0 cetirizine 10 mg Tablet 10 mg PO HS RF: 0 venlafaxine 150 mg Capsule,Extended Release 24hr 150 mg PO QAM RF: 0 amitriptyline 50 mg Tablet 50 mg PO HS RF: 0 ondansetron 8 mg Tablet,Disintegrating 8 mg PO BID PRN (Reason: Nausea) RF: 0 methocarbamol 750 mg Tablet 750 mg PO TID PRN (Reason: Pain) RF: 0 gabapentin 800 mg Tablet 800 mg PO TID RF: 0 amlodipine 10 mg Tablet 10 mg PO QAM RF: 0 pantoprazole 40 mg Tablet,Delayed Release (Dr/Ec) 40 mg PO QAM RF: 0 calcitriol 0.5 mcg Capsule 0.5 mcg PO DAILY RF: 0 warfarin 5 mg Tablet 5 mg PO 5XD RF: 0 warfarin 5 mg Tablet 7.5 mg PO 2XWK RF: 0 epinephrine [EpiPen] 0.3 mg/0.3 mL Auto-Injector 0.3 mg IM Q3H PRN (Reason: Allergic Reaction) RF: 0 polyethylene glycol 3350 [Miralax] 17 gram/dose Powder 1 dose PO DAILY PRN (Reason: Constipation) RF: 0 docusate sodium 100 mg Tablet 100 mg PO DAILY RF: 0 tiotropium bromide [Spiriva with HandiHaler] 18 mcg Capsule, W/Inhalation Device 1 cap INHALATION QAM RF: 0 albuterol sulfate 2.5 mg/0.5 mL Solution For Nebulization 2.5 mg INHALATION Q6 PRN (Reason: Wheezing) RF: 0 cholecalciferol (vitamin D3) [Vitamin D3] 1,000 unit Tablet 1,000 unit PO QAM RF: 0 gabapentin 100 mg Capsule 100 mg PO TID RF: 0 venlafaxine 75 mg Capsule,Extended Release 24hr 75 mg PO QAM RF: 0 trazodone 100 mg Tablet 200 mg PO HS RF: 0 metoprolol tartrate 50 mg Tablet 100 mg PO BID RF: 0 zolpidem 5 mg Tablet 5 mg PO HS PRN (Reason: Insomnia) RF: 0 oxycodone 5 mg Tablet 10 mg PO Q6H PRN (Reason: Pain) RF: 0 mupirocin 2 % Ointment 1 applic TOPICAL BID RF: 0 Referrals Referrals: Manoj Goins DO [Primary Care Provider] -
[2018-09-14] MEDS ORDERED: POLYETHYLENE (MIRALAX) 17 GM PACK PO PRN (06:49)
[2018-09-14] MEDS ORDERED: ZOLPIDEM TARTRATE 5 MG TAB PO PRN (06:49)
[2018-09-14] MEDS ORDERED: fentaNYL 50 MCG/HR TDSY TD SCH ×2 (06:49→10:00)
[2018-09-14] MEDS ORDERED: METHOCARBAMOL 750 MG TABLET PO PRN (06:49)
[2018-09-14] MEDS ORDERED: NITROGLYCERIN SL 0.4 MG/TAB TAB SL PRN (06:49)
[2018-09-14] MEDS ORDERED: EPINEPHRINE ADULT AUTO-INJECT 0.3 MG SYR IM PRN (06:49)
[2018-09-14] MEDS ORDERED: ALUMINUM/MAGNESIUM SUSP 30 ML UDC PO PRN (06:49)
[2018-09-14] MEDS ORDERED: METOPROLOL TARTRATE 1 MG/ML VIAL IV PRN (06:49)
[2018-09-14] MEDS ORDERED: ALBUTEROL 0.5% NEB SOLN 2.5 MG/0.5 ML VIAL INH PRN (06:49)
[2018-09-14] MEDS ORDERED: ACETAMINOPHEN 325 MG TAB PO PRN (06:49)
[2018-09-14] MEDS ORDERED: ONDANSETRON INJ 2 MG/ML 2 ML VIAL IV PRN (06:49)
[2018-09-14] MEDS ORDERED: OXYCODONE HCL IR 5 MG TAB (IMMEDIATE RELEASE) PO PRN (06:49)
--- NOTE | 2018-09-14 07:05 | XRay Report ---
KUB CLINICAL HISTORY: Diarrhea. FINDINGS: 2 AP supine abdominal radiographs are compared to study dated 10/27/2017 and correlated with abdominal CT dated 12/22/2016. There is a nonobstructed abdominal bowel gas pattern. Moderate colonic fecal retention is observed. No evidence of intraperitoneal free air is seen on these supine images. An indeterminant catheter projects over the pelvis. There are no abnormal abdominal calcifications. C holecystectomy clips are identified in the right upper quadrant, and surgical clips are also seen in the left groin. The skeletal structures are osteopenic. The bony pelvis is grossly intact. IMPRESSION: Nonobstructed abdominal bowel gas pattern noting moderate colonic fecal retention. Electronically signed by: Jame Batres M.D. 09/14/2018 7:04 AM
--- NOTE | 2018-09-14 08:51 | History and Physical Report ---
DATE OF ADMISSION: 09/14/2018 CHIEF COMPLAINT: Diarrhea. HISTORY OF PRESENT ILLNESS: This is a 62-year-old female with past medical history significant for COPD, obstructive sleep apnea, chronic respiratory failure, 3 liters of oxygen all the time, paroxysmal atrial fibrillation, type 2 diabetes, chronic respiratory failure, right cor pulmonale and diastolic CHF, GERD, hyperlipidemia, anemia, ongoing tobacco abuse, insomnia, venous thrombosis, gastroparesis, hypothyroidism, history of diverticulitis, bipolar disorder, who lives alone, wheelchair bound, but has help with caregiver every day, comes here because of ongoing diarrhea for the last 2-3 days. The patient having several episodes of diarrhea every day last 2-3 days, watery diarrhea, some mild abdominal discomfort. Denies any blood in the stools or black stools. Denies any fevers, some nausea, trying to eat only liquids and she is also feeling tingliness in the chest. Denies any shortness of breath,She had a cough, productive phlegm sputum, but it is improved now. She has headaches. Denies lightheadedness, no sore throat. Normal bladder movements. She was recently supposed to get defibrillation for her AFib on September 10, but because of her INR was low, it was postponed, but the INR is elevated at 5 today. ALLERGIES: BEE VENOM, LISINOPRIL, POTATO, METRONIDAZOLE, STRAWBERRY, ALPRAZOLAM, LACTOSE PREDNISONE, COLESEVELAM, LITHIUM. PAST MEDICAL HISTORY: As mentioned above. 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 MEDICATIONS: Include Lasix 60 mg p.o. daily, oxycodone IR 10 mg p.o. q. 6 hours p.r.n., albuterol nebulization every 4 hours p.r.n., potassium chloride 10 mEq p.o. t.i.d., fentanyl patch 50 mcg q. 72 hours, Protonix 40 mg daily, Coumadin 7.5 mg on Sundays and and 5 mg on other days, Zofran 8 mg p.o. b.i.d. p.r.n., amlodipine 10 mg p.o. daily, calcitriol 0.5 mg p.o. daily, Lipitor 40 mg p.o. daily, gabapentin 900 mg p.o. t.i.d., methocarbamol 750 mg p.o. t.i.d. p.r.n., zolpidem 5 mg p.o. at bedtime p.r.n., Lopressor 100 mg p.o. b.i.d., Spiriva 18 mcg inhalation daily, Lantus 16 units b.i.d., MiraLax 17 grams p.o. daily p.r.n., Effexor XR 225 mg p.o. daily, epinephrine p.r.n., amitriptyline 50 mg p.o. every night, vitamin D 1000 units p.o. daily, oxygen 3 liters at bedtime, cetirizine 10 mg p.o. daily, multivitamins 1 tablet p.o. daily. FAMILY HISTORY: Father has arthritis and gout. Mother has arthritis, diabetes and hypertension. Sister has arthritis. SOCIAL HISTORY: Smokes half pack a day for last 49 years. No alcohol use. No drug use. . REVIEW OF SYMPTOMS: As per HPI. Rest of review of systems is negative. PHYSICAL EXAMINATION: GENERAL: The patient is obese, not in acute distress. VITAL SIGNS: Temperature 37.1, pulse 110, respiratory 21, blood pressure 95/46, oxygen 98% on 4 liters. HEENT: No pallor, no icterus. Pupils equal, round, and reactive to light. NECK: No JVD, no neck masses, no carotid bruits. CARDIOVASCULAR: S1, S2, regular rate and rhythm, no murmur. RESPIRATORY SYSTEM: Normal AP diameter. No accessory muscle use. No wheezing, no crackles. ABDOMEN: Soft, bowel sounds present, nontender. No distention. CENTRAL NERVOUS SYSTEM: Cranial nerves II-XII grossly intact. Nonfocal. EXTREMITIES: Lower extremity, mild pedal edema present. No erythema seen. LABORATORIES: WBC 11.9, hemoglobin 12.4, hematocrit 37.7, platelets 299. PT 50.9, INR 5.6, APTT 50.7. Sodium 139, potassium 3.8, chloride 100, bicarbonate 22, BUN 20, creatinine 1.4, serum glucose 224, calcium 8.6, magnesium 1.9, total bilirubin 0.4, AST 38, ALT 58, alkaline phosphatase 112. Troponin I 0.029, lipase 102. TSH 1.9. Urinalysis negative. KUB x-ray pending. EKG shows rapid AFib at a rate of 117, right bundle-branch block, no acute ST changes seen. ASSESSMENT AND PLAN: This is a 62-year-old female who presents with ongoing diarrhea and rapid atrial fibrillation. 1. Diarrhea for the last few days, watery, no recent antibiotics. We will place her on gentle fluids of normal saline 75 mL/hour. Hold Lasix and follow the stool cultures and stool for C. diff. 2. Rapid atrial fibrillation. The patient has history of paroxysmal atrial fibrillation, history of ablation. The patient is supposed to get a cardioversion last week of August, but canceled because of her INR was subtherapeutic. Today's INR is 5.6. Continue home Lopressor with holding parameters. iv Lopressor p.r.n. heart rate greater than 120. Hold Coumadin and consult cardiology for further recommendations. Monitor on the tele floor. 3. Acute kidney injury and chronic kidney disease stage III, baseline creatinine 1 to 1.2. Currently, creatinine 1.4., getting gentle fluids. We will hold the Lasix. We will follow the labs. 4. Chronic respiratory failure, on 3 liters oxygen. 5. Obstructive sleep apnea and chronic obstructive pulmonary disease, on CPAP at bedtime. Continue home inhalers of Spiriva and albuterol p.r.n. 6. Chronic right-sided heart failure, chronic diastolic congestive heart failure. Holding the Lasix and also potassium supplements and getting gentle fluids. Monitor for volume overload. 8. History of mitral valvotomy, secondary to endocarditis. 9. Tobacco user, ongoing. Needs counseling.. 10. Gastroesophageal reflux disease, PPI. 11. Hyperlipidemia, statin. 12. Bipolar disorder, on Effexor, Elavil. 13. Diabetes. The patient currently is n.p.o. We will cut back insulin to 8 units b.i.d. insulin sliding scale. Follow the blood sugars. 14. Hypertension, on Lopressor, amlodipine, continue with holding parameters. 15. Chronic pain. Continue home oxycodone IR and fentanyl patch. 16. DVT prophylaxis, supratherapeutic INR. 17. Disposition: Close monitor in tele floor. Level 1 full code. PT, OT prior to discharge. Social service to help with discharge planning. VAHID
[2018-09-14] MEDS: MULTIVITAMIN TAB PO SCH (08:59)
[2018-09-14] MEDS: CALCITRIOL 0.25 MCG CAPSULE PO SCH (08:59)
[2018-09-14] MEDS: VENLAFAXINE HCL XR 75 MG CAPXR PO SCH (08:59)
[2018-09-14] MEDS: CHOLECALCIFEROL 1,000 UNITS TAB PO SCH (08:59)
[2018-09-14] MEDS: PANTOprazole 40 MG TAB PO SCH (09:00)
[2018-09-14] MEDS: DOCUSATE SODIUM 100 MG CAP PO SCH (09:00)
[2018-09-14] MEDS ORDERED: fentaNYL 75 MCG/HR TDSY TD SCH (09:00)
[2018-09-14] MEDS: GABAPENTIN 800 MG TAB PO SCH ×3 (09:02→22:04)
[2018-09-14] MEDS: VENLAFAXINE HCL XR 150 MG CAPXR PO SCH (09:02)
[2018-09-14] MEDS: METOPROLOL TARTRATE 50 MG TAB PO SCH ×2 (09:02→20:05)
[2018-09-14] MEDS: AMLODIPINE BESYLATE 5 MG TAB PO SCH (09:02)
[2018-09-14] MEDS: GABAPENTIN 100 MG CAP PO SCH ×3 (09:03→22:04)
[2018-09-14] MEDS: TIOTROPIUM BROMIDE 5 PUFF/90 MCG INH INH SCH (09:03)
[2018-09-14] MEDS: INSULIN ASPART 100 UNITS/ML 3 ML PEN SC SCH ×4 (09:06→20:01)
[2018-09-14] MEDS: INSULIN GLARGINE SOLOSTAR 100 UNITS/ML 3 ML PEN SC SCH ×2 (09:07→20:05)
[2018-09-14] MEDS: CHECK FENTANYL PATCH PLACEMENT SCH ×3 (09:37→23:39)
--- NOTE | 2018-09-14 10:52 | Cardiology Consultation ---
Date of Consultation September 14, 2018 Assessment & Plan (1) Persistent atrial fibrillation: Patient presents with elevated ventricular response rates likely in the basis of acute stressors of gastroenteritis diarrhea diminished oral medication intake. Would resume outpatient medications and anticoagulation with warfarin. Anticipate possible cardioversion in 3-4 weeks once fully therapeutic with out interruption Current symptoms do not suggest acute cardiac decline (2) Diarrhea: Signs and symptoms of acute gastroenteritis treat as appropriate, fluid hydration (3) Chronic obstructive pulmonary disease: (4) Cor pulmonale (chronic): With past right heart failure fluid retention (5) Sleep apnea: (6) History of mitral valve repair: History of Present Illness Reason for Consultation: Atrial fibrillation with elevated ventricular response rate, acute gastroenteritis Requesting Physician: Dr. Sierra Attending Physician: Dee Sierra MD History of Present Illness Patient is a complex 62-year-old female with cardiac issues as below 1. 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 June 13, 2005 cardiac catheterization at [facility] revealing left dominant coronary system with small caliber distal vessels consistent with diabetic history, without obstructive disease. 3. Paroxysmal symptomatic atrial flutter observed initially in February 2013, status post 03/16/2013 cardioversion. 4. May 02, [address] Masterson, successful ablation of the tricuspid valve to inferior vena caval isthmus with bidirectional block and termination of atrial flutter. Post ablation electrophysiologic study showed dual pathways with echo beats, no inducible SVT however extensive induction was not attempted 5. 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 6. Severe chronic obstructive lung disease, advanced emphysema, chronic hypoxemia with supplemental oxygen therapy PRN during the day and QHS. Patient continues to smoke 7. Chronic right heart failure, cor pulmonale physiology 8. Obstructive sleep apnea. Patient presents this admission acute viral syndrome gastroenteritis with frequent diarrhea and bowel incontinence. She was recently evaluated for atrial flutter and underwent transesophageal echocardiogram last week in hopes of guiding cardioversion however spontaneous contrast noted in the left atrial appendage and cardioversion not performed. Patient's been taking medications as prescribed until current event Symptoms currently are notable for severe nausea diarrhea times 3 days poor p.o. intake, weakness fatigue difficulty maintaining medications she presented to the emergency room where heart rate was notably elevated. She notes no bleeding difficulties notes no worsening cough chronic wheeze and shortness of breath remains present. Wears oxygen faithfully Allergies Allergy/AdvReac Type Severity Reaction Status Date / Time bee venom protein (honey bee) Allergy Severe SWELLING Verified 09/14/18 04:12 lisinopril Allergy Intermediate FACE Verified 09/14/18 04:12 SWELLING potato Allergy Intermediate BBQ chips Verified 09/14/18 04:12 - facial swelling metronidazole Allergy Mild FACE Verified 09/14/18 04:12 SWELLING strawberry Allergy Mild HIVES Verified 09/14/18 04:12 alprazolam Allergy Unknown RED FACE, Verified 09/14/18 04:12 FACE SWELLING lactose AdvReac Intermediate VOMTING Verified 09/14/18 04:12 DIARRHEA ABDOMINAL PAIN prednisone AdvReac Mild unknown Verified 09/14/18 04:12 colesevelam AdvReac Unknown unknown Verified 09/14/18 04:12 lithium AdvReac Unknown jitters Verified 09/14/18 04:12 Home Medications Home Medications Medication Instructions Recorded Confirmed Type albuterol sulfate 2.5 mg INHALATION Q6 PRN 06/19/18 09/14/18 History amitriptyline 50 mg PO HS 06/19/18 09/14/18 History amlodipine 10 mg PO QAM 06/19/18 09/14/18 History atorvastatin 40 mg PO HS 06/19/18 09/14/18 History calcitriol 0.5 mcg PO DAILY 06/19/18 09/14/18 History cetirizine 10 mg PO HS 06/19/18 09/14/18 History cholecalciferol (vitamin D3) 1,000 unit PO QAM 06/19/18 09/14/18 History [Vitamin D3] docusate sodium 100 mg PO DAILY 06/19/18 09/14/18 History epinephrine [EpiPen] 0.3 mg IM Q3H PRN 06/19/18 09/14/18 History fentanyl [Duragesic] 1 patch TRANSDERMAL Q72H 06/19/18 09/14/18 History furosemide 60 mg PO BID 06/19/18 09/14/18 History gabapentin 800 mg PO TID 06/19/18 09/14/18 History insulin glargine [Lantus U-100 16 unit SUBCUT BID 06/19/18 09/14/18 History Insulin] methocarbamol 750 mg PO TID PRN 06/19/18 09/14/18 History multivitamin 1 tab PO QAM 06/19/18 09/14/18 History ondansetron 8 mg PO BID PRN 06/19/18 09/14/18 History pantoprazole 40 mg PO QAM 06/19/18 09/14/18 History polyethylene glycol 3350 [Miralax] 1 dose PO DAILY PRN 06/19/18 09/14/18 History potassium chloride 10 meq PO TID 06/19/18 09/14/18 History tiotropium bromide [Spiriva with 1 cap INHALATION QAM 06/19/18 09/14/18 History HandiHaler] venlafaxine 150 mg PO QAM 06/19/18 09/14/18 History warfarin 5 mg PO 5XD 06/19/18 09/14/18 History warfarin 7.5 mg PO 2XWK 06/19/18 09/14/18 History gabapentin 100 mg PO TID 09/14/18 09/14/18 History metoprolol tartrate 100 mg PO BID 09/14/18 09/14/18 History mupirocin 1 applic TOPICAL BID 09/14/18 09/14/18 History oxycodone 10 mg PO Q6H PRN 09/14/18 09/14/18 History trazodone 200 mg PO HS 09/14/18 09/14/18 History venlafaxine 75 mg PO QAM 09/14/18 09/14/18 History zolpidem 5 mg PO HS PRN 09/14/18 09/14/18 History Patient History Medical History Asthma 3LPM VIA N/C On home oxygen therapy 3LPM VIA N/C Chronic obstructive pulmonary disease 3LPM VIA N/C Sleep apnea CPAP Hypertension Hyperlipidemia Congestive heart failure Atrial fibrillation A. FIB/A. FLUTTER S/P CARDIOVERSION (2017) Migraine Anxiety Depression Bipolar disorder Post traumatic stress disorder Diabetes mellitus, type 2 IDDM Hypothyroidism GERD (gastroesophageal reflux disease) Hiatal hernia Chronic kidney disease STAGE III Chronic back pain Degenerative disc disease Fibromyalgia Osteoarthritis Obesity History of DVT (deep vein thrombosis) pt states is left hand Anemia CVA (cerebral vascular accident) 2005 PER RECORDS Surgical History History of mitral valve repair 2005 History of adenoidectomy History of tonsillectomy History of cataract surgery BILATERAL History of colonoscopy History of esophagogastroduodenoscopy (EGD) History of cholecystectomy LAPAROSCOPY History of appendectomy LAPAROSCOPY History of herniorrhaphy UMBILICAL Hx of lumpectomy right breast BENIGN History of hysterectomy EMIGDIO WITH BSO History of cardiac cath 2005= NO STENTS S/P trigger finger release RIGHT/LEFT Family History Mother Family history of diabetes mellitus Sister Family history of diabetes mellitus Social History Current Living Situation: Alone Other Information That Helps Us Care for You: No Feels Safe at Home: Yes Safety Concerns: Feels Safe At This Time Smoking Status: Current every day smoker Tobacco Type: cigarettes Cigarettes per Day: 10 Do You Dip or Chew Tobacco: No Second Hand Exposure: No Tobacco Cessation Education Requested by Patient: No Hx Alcohol Use: No Hx Substance Use: No Beliefs That Will Affect Care: None Preferred Language: Latvian Communication Ability: Effective Review of Systems As per HPI and otherwise negative Physical Exam 2 Vital Signs (Past 24 Hours): Last Vital Signs Temp 36.9 C 09/14/18 06:59 Pulse 125 H 09/14/18 06:59 Resp 20 09/14/18 06:59 BP 148/80 H 09/14/18 06:59 Pulse Ox 96 09/14/18 06:59 Constitutional: + ill appearing and + obese ENMT: external ear and nose normal, oropharynx normal Neck: + thick neck Respiratory: Auscultation: + diminished lung sounds, + wheezes and + bronchovesicular breath sounds Cardiovascular: Extremities: no edema Irregularly irregular without audible murmur or rub. Heart sounds distant Gastrointestinal (Abdomen): Inspection/Auscultation: + hyperactive bowel sounds Percussion/Palpation: abdomen soft Results & Data Laboratory Results Laboratory Results - last 24 hr 09/14/18 09/14/18 09/14/18 02:02 02:02 02:02 WBC 11.99 H RBC 4.10 L Hgb 12.4 Hct 37.7 MCV 92.0 MCH 30.2 MCHC 32.9 RDW Std Deviation 51.3 H RDW Coeff of King 15.1 H Plt Count 299 MPV 9.6 Immature Gran % (Auto) 0.4 Neut % (Auto) 75.1 Lymph % (Auto) 14.9 [place] % (Auto) 7.7 Eos % (Auto) 1.8 Baso % (Auto) 0.1 Immature Gran # (Auto) 0.05 H Neut # (Auto) 9.01 H Lymph # (Auto) 1.79 [place] # (Auto) 0.92 H Eos # (Auto) 0.21 Baso # (Auto) 0.01 PT Cancelled INR Cancelled APTT Cancelled PTT Ratio Cancelled Sodium 139 Potassium 3.8 Chloride 100 Carbon Dioxide 32 Anion Gap 7.0 BUN 20 H Creatinine 1.41 H Est Cr Clr Drug Dosing 50.8 Est GFR ( Amer) 46.5 Est GFR (Non-Af Amer) 40.1 BUN/Creatinine Ratio 14.3 Glucose 224 H POC Glucose Calcium 8.6 Magnesium 1.9 Total Bilirubin 0.4 AST 38 H ALT 58 Alkaline Phosphatase 112 Troponin I 0.022 Total Protein 6.8 Albumin 2.6 L Globulin 4.2 H Albumin/Globulin Ratio 0.6 L Lipase 122 TSH 1.910 Urine Color Urine Appearance Urine pH Ur Specific [place] Urine Protein Urine Glucose (UA) Urine Ketones Urine Blood Urine Nitrite Urine Bilirubin Urine Urobilinogen Ur Leukocyte Esterase Hepatitis C Ab Screen 09/14/18 09/14/18 09/14/18 02:53 03:55 05:05 WBC RBC Hgb Hct MCV MCH MCHC RDW Std Deviation RDW Coeff of [place] Plt Count MPV Immature Gran % (Auto) Neut % (Auto) Lymph % (Auto) [place] % (Auto) Eos % (Auto) Baso % (Auto) Immature Gran # (Auto) Neut # (Auto) Lymph # (Auto) [place] # (Auto) Eos # (Auto) Baso # (Auto) PT 50.9 H INR 5.6 H* APTT 50.7 H* PTT Ratio 2.0 Sodium Potassium Chloride Carbon Dioxide Anion Gap BUN Creatinine Est Cr Clr Drug Dosing Est GFR ( Amer) Est GFR (Non-Af Amer) BUN/Creatinine Ratio Glucose POC Glucose Calcium Magnesium Total Bilirubin AST ALT Alkaline Phosphatase Troponin I 0.029 Total Protein Albumin Globulin Albumin/Globulin Ratio Lipase TSH Urine Color Yellow Urine Appearance Clear Urine pH 5.5 Ur Specific [place] 1.008 Urine Protein Negative Urine Glucose (UA) Trace H Urine Ketones Negative Urine Blood Negative Urine Nitrite Negative Urine Bilirubin Negative Urine Urobilinogen Negative Ur Leukocyte Esterase Negative Hepatitis C Ab Screen 09/14/18 09/14/18 09/14/18 06:55 06:55 07:25 WBC RBC Hgb Hct MCV MCH MCHC RDW Std Deviation RDW Coeff of King Plt Count MPV Immature Gran % (Auto) Neut % (Auto) Lymph % (Auto) [place] % (Auto) Eos % (Auto) Baso % (Auto) Immature Gran # (Auto) Neut # (Auto) Lymph # (Auto) [place] # (Auto) Eos # (Auto) Baso # (Auto) PT INR APTT PTT Ratio Sodium Potassium Chloride Carbon Dioxide Anion Gap BUN Creatinine Est Cr Clr Drug Dosing Est GFR ( Amer) Est GFR (Non-Af Amer) BUN/Creatinine Ratio Glucose POC Glucose 150 H Calcium Magnesium Total Bilirubin AST ALT Alkaline Phosphatase Troponin I 0.020 Total Protein Albumin Globulin Albumin/Globulin Ratio Lipase TSH Urine Color Urine Appearance Urine pH Ur Specific [place] Urine Protein Urine Glucose (UA) Urine Ketones Urine Blood Urine Nitrite Urine Bilirubin Urine Urobilinogen Ur Leukocyte Esterase Hepatitis C Ab Screen Neg ECG Additional Comments: 14-SEP-2018 02:10:16 [facility] Atrial fibrillation with rapid ventricular response Right bundle branch block Abnormal ECG When compared with ECG of 24-JUN-2018 10:20, Atrial fibrillation has replaced Sinus rhythm Vent. rate has increased BY 50 BPM _ (1) Diarrhea Diarrhea type:
[2018-09-14] MEDS ORDERED: ATORVASTATIN 40 MG TAB PO SCH (21:00)
[2018-09-14] MEDS ORDERED: CETIRIZINE HCL 10 MG TABLET PO SCH (21:00)
[2018-09-14] MEDS ORDERED: TRAZODONE HCL 100 MG TAB PO SCH (21:00)
[2018-09-14] MEDS ORDERED: AMITRIPTYLINE HCL 50 MG TAB PO SCH (21:00)
[2018-09-15 05:44] LABS: Basophils # (auto) 0.02 K/uL (0-0.2); Basophils % (auto) 0.3 %; Eosinophils # (auto) 0.23 K/uL (0-0.5); Hematocrit (blood only) 36.8 % (37-47); Hemoglobin 11.7 g/dL (12.0-16.0); Immature Granulocytes # (auto) 0.02 K/uL (0.00-0.02); Immature Granulocytes % (auto) 0.3 %; Lymphocytes # (auto) 1.07 K/uL (1.2-3.4); Lymphocytes % (auto) 13.8 %; Mean Corpuscular Hgb Conc 31.8 g/dL (32-36); Mean Corpuscular Volume 93.2 fL (80-100); Monocytes # (auto) 0.73 K/uL (0.11-0.59); Monocytes % (auto) 9.4 %; Neutrophils # (auto) 5.68 K/uL (1.4-6.5); Neutrophils % (auto) 73.2 %; Platelet Count 286 K/uL (130-400); RDW Coefficient of Variation 15.3 % (11.5-14.5); RDW Standard Deviation 51.8 fL (36.4-46.3); Red Blood Count 3.95 M/uL (4.2-5.4); White Blood Count 7.75 K/uL (4.8-10.8)
[2018-09-15 06:06] LABS: INR 2.8 (0.9-1.1); Prothrombin Time 26.7 Seconds (9.0-12.0)
[2018-09-15 06:23] LABS: BUN Creatinine Ratio 16.3 (10-20); Calcium 8.6 mg/dl (8.5-10.1); Creatinine Clr Calc Pharmacy 63.1 ml/min; Est GFR (African American) 64.2; Est GFR (Non-African American) 55.4; Potassium 3.7 mmol/L (3.5-5.1)
[2018-09-15 06:57] LABS: Estimated Average Glucose 206 mg/dl
[2018-09-15] MEDS: GABAPENTIN 100 MG CAP PO SCH ×2 (08:10→12:41)
[2018-09-15] MEDS: METOPROLOL TARTRATE 50 MG TAB PO SCH (08:10)
[2018-09-15] MEDS: GABAPENTIN 800 MG TAB PO SCH ×2 (08:10→12:41)
[2018-09-15] MEDS: CALCITRIOL 0.25 MCG CAPSULE PO SCH (08:10)
[2018-09-15] MEDS: PANTOprazole 40 MG TAB PO SCH (08:10)
[2018-09-15] MEDS: VENLAFAXINE HCL XR 75 MG CAPXR PO SCH (08:10)
[2018-09-15] MEDS: DOCUSATE SODIUM 100 MG CAP PO SCH (08:10)
[2018-09-15] MEDS: CHOLECALCIFEROL 1,000 UNITS TAB PO SCH (08:10)
[2018-09-15] MEDS: TIOTROPIUM BROMIDE 5 PUFF/90 MCG INH INH SCH (08:11)
[2018-09-15] MEDS: MULTIVITAMIN TAB PO SCH (08:11)
[2018-09-15] MEDS: VENLAFAXINE HCL XR 150 MG CAPXR PO SCH (08:11)
[2018-09-15] MEDS: AMLODIPINE BESYLATE 5 MG TAB PO SCH (08:11)
[2018-09-15] MEDS: INSULIN ASPART 100 UNITS/ML 3 ML PEN SC SCH ×2 (08:12→12:40)
[2018-09-15] MEDS: INSULIN GLARGINE SOLOSTAR 100 UNITS/ML 3 ML PEN SC SCH (08:13)
[2018-09-15] MEDS: CHECK FENTANYL PATCH PLACEMENT SCH (08:14)
--- NOTE | 2018-09-15 09:46 | Cardiology Progress Note ---
Date of Service September 15, 2018 Assessment & Plan (1) Persistent atrial fibrillation: Patient presents with elevated ventricular response rates likely in the basis of acute stressors of gastroenteritis diarrhea diminished oral medication intake. Would resume outpatient medications and anticoagulation with warfarin. Anticipate possible cardioversion in 3-4 weeks once fully therapeutic with out interruption Current symptoms do not suggest acute cardiac decline (2) Diarrhea: Signs and symptoms of acute gastroenteritis treat as appropriate, fluid hydration (3) Chronic obstructive pulmonary disease: (4) Cor pulmonale (chronic): With past right heart failure fluid retention (5) Sleep apnea: (6) History of mitral valve repair: Physical Exam 2 Vital Signs (Past 24 Hours): Last Vital Signs Temp 36.3 C L 09/15/18 07:39 Pulse 129 H 09/15/18 07:39 Resp 18 09/15/18 07:39 BP 131/83 09/15/18 07:39 Pulse Ox 93 09/15/18 07:39 Constitutional: + ill appearing and + obese ENMT: external ear and nose normal, oropharynx normal Neck: + thick neck Respiratory: Auscultation: + diminished lung sounds, + wheezes and + bronchovesicular breath sounds Cardiovascular: Extremities: no edema Gastrointestinal (Abdomen): Inspection/Auscultation: + hyperactive bowel sounds Percussion/Palpation: abdomen soft _ (1) Diarrhea Diarrhea type:
--- NOTE | 2018-09-15 09:49 | Cardiology Progress Note ---
Date of Service September 15, 2018 Assessment & Plan (1) Persistent atrial fibrillation: Patient presents with elevated ventricular response rates likely in the basis of acute stressors of gastroenteritis diarrhea diminished oral medication intake. Would resume outpatient medications and anticoagulation with warfarin. Anticipate possible cardioversion in 3-4 weeks once fully therapeutic with out interruption Plan continue metoprolol dosing at current level Discontinue amlodipine begin Cardizem CD 180 mg p.o. daily (2) Diarrhea: Signs and symptoms of acute gastroenteritis treat as appropriate, fluid hydration (3) Chronic obstructive pulmonary disease: (4) Cor pulmonale (chronic): With past right heart failure fluid retention (5) Sleep apnea: (6) History of mitral valve repair: Subjective Patient seen and examined chart medications telemetry reviewed. Patient notes gastroenteritis complaints diarrhea resolved is feeling well at back to baseline she is anxious to be discharged home She remains in atrial fibrillation with elevated heart rates at times notes no acute respiratory distress or complaints Physical Exam 2 Vital Signs (Past 24 Hours): Last Vital Signs Temp 36.3 C L 09/15/18 07:39 Pulse 129 H 09/15/18 07:39 Resp 18 09/15/18 07:39 BP 131/83 09/15/18 07:39 Pulse Ox 93 09/15/18 07:39 Constitutional: WD/WN, vitals as above + obese ENMT: external ear and nose normal, oropharynx normal Neck: + thick neck Respiratory: Auscultation: + wheezes (Scattered) and + bronchovesicular breath sounds Cardiovascular: Irregularly irregular no S3 gallop Gastrointestinal (Abdomen): Percussion/Palpation: abdomen soft; abdomen nontender _ (1) Diarrhea Diarrhea type:
--- NOTE | 2018-09-15 11:02 | Hospitalist Progress Note ---
Date of Service September 15, 2018 Assessment & Plan (1) Diarrhea: Admitted with the diarrhea, nausea and Signs and symptoms of acute gastroenteritis treat as appropriate, fluid hydration Clinically a lot better Denies any more diarrhea and/or nausea/vomiting Ready to be discharged this afternoon (2) Persistent atrial fibrillation: Presented with increasing right likely secondary to dehydration from gastroenteritis Appreciate cardiology input and recommendation Plan continue metoprolol dosing at current level Discontinue amlodipine begin Cardizem CD 180 mg p.o. daily Anticipate possible cardioversion in 3-4 weeks once fully therapeutic with out interruption (3) Chronic obstructive pulmonary disease: Has occasional wheezing but no apparent distress (4) Cor pulmonale (chronic): With past right heart failure fluid retention We will continue current medication (5) Sleep apnea: No acute symptoms With current management (6) History of mitral valve repair: Tachycardia as above but no pain Other medical condition like type 2 diabetes, hypothyroidism, chronic hyponatremia and cor pulmonale remains stable Medically stable to be discharged today. Subjective She is a 62-year-old female with sick significant past medical history including ablation on Coumadin, hypertension, bipolar disorder with depression, GERD, gastroparesis, hypothyroidism, and asthma was admitted with nausea vomiting diarrhea secondary to gastroenteritis. 09/15/18 Patient seen and examined chart medications telemetry reviewed. Clinically much better Noted to have tachycardia Medications have been adjusted Patient denies any symptoms and ready to go home Physical Exam 2 Vital Signs (Past 24 Hours): Last Vital Signs Temp 36.3 C L 09/15/18 07:39 Pulse 129 H 09/15/18 07:39 Resp 18 09/15/18 07:39 BP 131/83 09/15/18 07:39 Pulse Ox 93 09/15/18 07:39 Physical Exam: Lying in bed comfortably Constitutional: WD/WN, vitals as above + obese No apparent distress ENMT: external ear and nose normal, oropharynx normal Neck: + thick neck Respiratory: normal respiratory effort Auscultation: + diminished lung sounds and + wheezes (Very minimal) Cardiovascular: Rate/Rhythm: + tachycardic; + abnormal rhythm Extremities: no edema Gastrointestinal (Abdomen): Inspection/Auscultation: abdomen normal to inspection and normal bowel sounds Percussion/Palpation: abdomen soft; abdomen nontender Results & Data Laboratory Results Short CBC 09/15/18 Range/Units 05:14 WBC 7.75 (4.8-10.8) K/uL Hgb 11.7 L (12.0-16.0) g/dL Hct 36.8 L (37-47) % Plt Count 286 (130-400) K/uL BMP 09/15/18 05:14 Sodium 141 Potassium 3.7 Chloride 104 Carbon Dioxide 35 H BUN 18 Creatinine 1.08 Glucose 141 H Calcium 8.6 Cardiac Enzymes 09/14/18 09/14/18 Range/Units 12:40 18:54 Troponin I 0.016 < 0.015 (0-0.045) ng/ml Medications Administered Current Inpatient Medications Acetaminophen (Tylenol) 650 mg PO Q4H PRN PRN Reason: Pain or Fever Stop: 10/14/18 06:48 Al Hydrox/Mg Hydrox/Simethicone (Maalox) 15 ml PO Q4H PRN PRN Reason: Dyspepsia Stop: 10/14/18 06:48 Albuterol (Ventolin 0.5% 2.5mg/0.5ml) 2.5 mg INH Q6 PRN PRN Reason: Wheezing Stop: 10/14/18 06:48 Last Admin: 09/14/18 16:04 Dose: 2.5 mg Amitriptyline HCl (Elavil) 50 mg PO HS [facility] Stop: 10/14/18 20:59 Last Admin: 09/14/18 22:04 Dose: 50 mg Atorvastatin Calcium (Lipitor) 40 mg PO HS [facility] Stop: 10/14/18 20:59 Last Admin: 09/14/18 20:06 Dose: 40 mg Calcitriol (Racaltrol) 0.5 mcg PO DAILY [facility] Stop: 10/14/18 08:59 Last Admin: 09/15/18 08:10 Dose: 0.5 mcg Cetirizine HCl (Zyrtec) 10 mg PO HS [facility] Stop: 10/14/18 20:59 Last Admin: 09/14/18 22:04 Dose: 10 mg Diltiazem HCl (Cardizem Cd) 180 mg PO QAM [facility] Stop: 10/16/18 08:59 Docusate Sodium (Colace) 100 mg PO DAILY [facility] Stop: 10/14/18 08:59 Last Admin: 09/15/18 08:10 Dose: 100 mg Epinephrine HCl (Epipen) 0.3 mg IM Q3H PRN PRN Reason: Allergic Reaction Stop: 10/14/18 06:48 Fentanyl (Duragesic) 50 mcg TD Q3D@1000 [facility] Stop: 09/28/18 09:59 Last Admin: 09/14/18 09:37 Dose: 50 mcg Gabapentin (Neurontin) 100 mg PO TID [facility] Stop: 10/14/18 08:59 Last Admin: 09/15/18 08:10 Dose: 100 mg Gabapentin (Neurontin) 800 mg PO TID [facility] Stop: 10/14/18 08:59 Last Admin: 09/15/18 08:10 Dose: 800 mg Insulin Aspart (Novolog Flexpen) 0 units SC ACHS [facility] Stop: 10/14/18 07:29 Last Admin: 09/15/18 08:12 Dose: 4 units Insulin Glargine (Lantus Solostar Pen) 8 units SC BID [facility] Stop: 10/14/18 08:59 Last Admin: 09/15/18 08:13 Dose: 8 units Methocarbamol (Robaxin) 750 mg PO TID PRN PRN Reason: Pain Stop: 10/14/18 06:48 Last Admin: 09/14/18 09:00 Dose: 750 mg Metoprolol Tartrate (Lopressor) 100 mg PO BID [facility] Stop: 10/14/18 08:59 Last Admin: 09/15/18 08:10 Dose: 100 mg Metoprolol Tartrate (Lopressor) 2.5 mg IV Q6 PRN PRN Reason: Tachycardia Stop: 10/14/18 06:48 Last Admin: 09/14/18 14:29 Dose: 2.5 mg Miscellaneous (Fentanyl Patch Remove & Waste) 1 ea N/A Q72H [facility] Stop: 10/14/18 08:58 Last Admin: 09/14/18 09:37 Dose: 1 ea Miscellaneous (Fentanyl Patch Check Placement) 1 ea N/A QS [facility] Stop: 10/14/18 07:59 Last Admin: 09/15/18 08:14 Dose: 1 ea Multivitamins (Multivitamin) 1 tab PO QAM [facility] Stop: 10/14/18 08:59 Last Admin: 09/15/18 08:11 Dose: 1 tab Nitroglycerin (Nitrostat) 0.4 mg SL UD PRN PRN Reason: Chest Pain Stop: 10/14/18 06:48 Ondansetron HCl (Zofran) 4 mg IV Q6H PRN PRN Reason: Nausea Stop: 10/14/18 06:48 Oxycodone HCl (Roxicodone Immediate Rel) 10 mg PO Q6H PRN PRN Reason: Pain Stop: 09/28/18 06:48 Pantoprazole Sodium (Protonix) 40 mg PO [facility] Stop: 10/14/18 08:59 Last Admin: 09/15/18 08:10 Dose: 40 mg Polyethylene Glycol (Miralax Powder Packet) 17 gm PO DAILY PRN PRN Reason: Constipation Tiotropium [place] (Spiriva) 1 puffs INH [facility] Stop: 10/14/18 08:59 Last Admin: 09/15/18 08:11 Dose: 1 puffs Trazodone HCl (Desyrel) 200 mg PO [facility] Stop: 10/14/18 20:59 Last Admin: 09/14/18 22:04 Dose: 200 mg Venlafaxine HCl (Effexor Extended Release) 75 mg PO [facility] Stop: 10/14/18 08:59 Last Admin: 09/15/18 08:10 Dose: 75 mg Venlafaxine HCl (Effexor Extended Release) 150 mg PO [facility] Stop: 10/14/18 08:59 Last Admin: 09/15/18 08:11 Dose: 150 mg Vitamin D (Vitamin D3) 1,000 units PO [facility] Stop: 10/14/18 08:59 Last Admin: 09/15/18 08:10 Dose: 1,000 units Zolpidem Tartrate (Ambien) 5 mg PO HS PRN PRN Reason: Insomnia Stop: 10/14/18 06:48 Last Admin: 09/14/18 23:39 Dose: 5 mg _ (1) Diarrhea Diarrhea type:
[2018-09-15 11:51] VITALS: BP 107/76; TEMP 98.4; O2SAT 94
[2018-09-15 15:57] VITALS: PULSE 125
--- NOTE | 2018-09-15 17:37 | Discharge Summary ---
Date of Service September 15, 2018 Admission HPI Per Admitting Provider DICTATED BY: Ronak Nguyen MD DATE OF ADMISSION: 09/14/2018 CHIEF COMPLAINT: Diarrhea. HISTORY OF PRESENT ILLNESS: This is a 62-year-old female with past medical history significant for COPD, obstructive sleep apnea, chronic respiratory failure, 3 liters of oxygen all the time, paroxysmal atrial fibrillation, type 2 diabetes, chronic respiratory failure, right cor pulmonale and diastolic CHF, GERD, hyperlipidemia, anemia, ongoing tobacco abuse, insomnia, venous thrombosis, gastroparesis, hypothyroidism, history of diverticulitis, bipolar disorder, who lives alone, wheelchair bound, but has help with caregiver every day, comes here because of ongoing diarrhea for the last 2-3 days. The patient having several episodes of diarrhea every day last 2-3 days, watery diarrhea, some mild abdominal discomfort. Denies any blood in the stools or black stools. Denies any fevers, some nausea, trying to eat only liquids and she is also feeling tingliness in the chest. Denies any shortness of breath,She had a cough, productive phlegm sputum, but it is improved now. She has headaches. Denies lightheadedness, no sore throat. Normal bladder movements. She was recently supposed to get defibrillation for her AFib on September 10, but because of her INR was low, it was postponed, but the INR is elevated at 5 today. Admission Exam Per Admitting Provider PHYSICAL EXAMINATION: GENERAL: The patient is obese, not in acute distress. VITAL SIGNS: Temperature 37.1, pulse 110, respiratory 21, blood pressure 95/46, oxygen 98% on 4 liters. HEENT: No pallor, no icterus. Pupils equal, round, and reactive to light. NECK: No JVD, no neck masses, no carotid bruits. CARDIOVASCULAR: S1, S2, regular rate and rhythm, no murmur. RESPIRATORY SYSTEM: Normal AP diameter. No accessory muscle use. No wheezing, no crackles. ABDOMEN: Soft, bowel sounds present, nontender. No distention. CENTRAL NERVOUS SYSTEM: Cranial nerves II-XII grossly intact. Nonfocal. EXTREMITIES: Lower extremity, mild pedal edema present. No erythema seen. Principal Diagnosis Gastroenteritis, atrial fibrillation with RVR Discharge Exam Constitutional WD/WN, vitals as above + obese ENMT external ear and nose normal, oropharynx normal Neck + thick neck Respiratory normal respiratory effort Auscultation: + diminished lung sounds and + wheezes (Very minimal) Cardiovascular Rate/Rhythm: + tachycardic; + abnormal rhythm Extremities: no edema Gastrointestinal (Abdomen) Inspection/Auscultation: abdomen normal to inspection and normal bowel sounds Percussion/Palpation: abdomen soft; abdomen nontender Discharge Data Allergies Allergy/AdvReac Type Severity Reaction Status Date / Time bee venom protein (honey bee) Allergy Severe SWELLING Verified 09/14/18 04:12 lisinopril Allergy Intermediate FACE Verified 09/14/18 04:12 SWELLING potato Allergy Intermediate BBQ chips Verified 09/14/18 04:12 - facial swelling metronidazole Allergy Mild FACE Verified 09/14/18 04:12 SWELLING strawberry Allergy Mild HIVES Verified 09/14/18 04:12 alprazolam Allergy Unknown RED FACE, Verified 09/14/18 04:12 FACE SWELLING lactose AdvReac Intermediate VOMTING Verified 09/14/18 04:12 DIARRHEA ABDOMINAL PAIN prednisone AdvReac Mild unknown Verified 09/14/18 04:12 colesevelam AdvReac Unknown unknown Verified 09/14/18 04:12 lithium AdvReac Unknown jitters Verified 09/14/18 04:12 Consultations 09/14/18 05:02 ED Decision to Admit Stat 09/14/18 06:49 Consult Case Management - Discharge Planning Routine 09/14/18 08:00 Consult Cardiology Routine Hospital Course (1) Diarrhea: Admitted with the diarrhea, nausea and Signs and symptoms of acute gastroenteritis treat as appropriate, fluid hydration Clinically a lot better Denies any more diarrhea and/or nausea/vomiting Ready to be discharged this afternoon (2) Persistent atrial fibrillation: Presented with increasing right likely secondary to dehydration from gastroenteritis Appreciate cardiology input and recommendation Plan continue metoprolol dosing at current level Discontinue amlodipine begin Cardizem CD 180 mg p.o. daily Anticipate possible cardioversion in 3-4 weeks once fully therapeutic with out interruption (3) Chronic obstructive pulmonary disease: Has occasional wheezing but no apparent distress (4) Cor pulmonale (chronic): With past right heart failure fluid retention We will continue current medication (5) Sleep apnea: No acute symptoms With current management (6) History of mitral valve repair: Tachycardia as above but no pain Other medical condition like type 2 diabetes, hypothyroidism, chronic hyponatremia and cor pulmonale remains stable Medically stable to be discharged today. Total Time Total Time Spent Total Time Spent (In Minutes): 35 minutes Total Time Includes: Examination of the Patient, Discharge Planning and Medication Reconciliation Discharge Plan Discharge Items Patient Disposition: Home - Self-Care Reason For Visit: DIARRHEA, A-FIB Discharge Diagnosis: Gastroenteritis, atrial fibrillation with RVR Condition: Good Discharge Goals: Decrease discomfort and Improve function Activity: Resume your previous activity Non-emergency contact: Primary Care Provider Call non-emergency contact if: you have any medication questions and your symptoms worsen Follow-up/Referrals: Manoj Gions DO [Primary Care Provider] - (Your doctor's office will give you a call with appointment. Please keep regular appointment with [facility]) Diet: Heart Healthy and Low Sodium (2gm) Addtl Provider Instructions: Call your Primary Care doctor if any of the following symptoms or problems start or get worse: * Shortness of breath or difficulty breathing * Wake up at night short of breath * Chest pain * Cough * Swelling of your hands, feet, or legs * More fatigued or tired with your normal activity * Palpitations - sudden fast heart beats WEIGHT * Weigh yourself every morning after using the bathroom. * Use the same scale. * Wear the same amount of clothing. * Write your weight down on a chart. * Call your Primary Care doctor if you gain more than 2-3 pounds in 1-2 days. MEDICATIONS * Use this discharge instruction sheet for medication instructions. * Take your medications at the time your doctor ordered. * Do not skip a dose of your medicines. * If you miss a dose of medicine, take it as soon as possible, but DO NOT DOUBLE A DOSE. * Read your medicine information when you get home. * Know all of the side effects of your medicine. If in doubt, ask your pharmacist * Call your Primary Care doctor's office if you have any side effects. * Be sure all of your doctors know what medicine and herbs you take (including cold, flu, and herbal medicine). Take the following with you to your follow-up doctor appointments: * Weight Chart * Medication List * List of questions Do not drink excessive alcohol, beer or wine. Prescriptions: New diltiazem HCl 180 mg Capsule,Extended Release 24hr 180 mg PO QAM 30 Days Qty: 30 RF: 0 Continue multivitamin Tablet 1 tab PO QAM RF: 0 furosemide 40 mg Tablet 60 mg PO BID RF: 0 atorvastatin 40 mg Tablet 40 mg PO HS RF: 0 fentanyl [Duragesic] 50 mcg/hr Patch 72 Hour 1 patch TRANSDERMAL Q72H RF: 0 potassium chloride 10 mEq Capsule, Extended Release 10 meq PO TID RF: 0 insulin glargine [Lantus U-100 Insulin] 100 unit/mL Solution 16 unit SUBCUT BID RF: 0 cetirizine 10 mg Tablet 10 mg PO HS RF: 0 venlafaxine 150 mg Capsule,Extended Release 24hr 150 mg PO QAM RF: 0 amitriptyline 50 mg Tablet 50 mg PO HS RF: 0 ondansetron 8 mg Tablet,Disintegrating 8 mg PO BID PRN (Reason: Nausea) RF: 0 methocarbamol 750 mg Tablet 750 mg PO TID PRN (Reason: Pain) RF: 0 gabapentin 800 mg Tablet 800 mg PO TID RF: 0 pantoprazole 40 mg Tablet,Delayed Release (Dr/Ec) 40 mg PO QAM RF: 0 calcitriol 0.5 mcg Capsule 0.5 mcg PO DAILY RF: 0 warfarin 5 mg Tablet 5 mg PO 5XD RF: 0 warfarin 5 mg Tablet 7.5 mg PO 2XWK RF: 0 epinephrine [EpiPen] 0.3 mg/0.3 mL Auto-Injector 0.3 mg IM Q3H PRN (Reason: Allergic Reaction) RF: 0 polyethylene glycol 3350 [Miralax] 17 gram/dose Powder 1 dose PO DAILY PRN (Reason: Constipation) RF: 0 docusate sodium 100 mg Tablet 100 mg PO DAILY RF: 0 tiotropium bromide [Spiriva with HandiHaler] 18 mcg Capsule, W/Inhalation Device 1 cap INHALATION QAM RF: 0 albuterol sulfate 2.5 mg/0.5 mL Solution For Nebulization 2.5 mg INHALATION Q6 PRN (Reason: Wheezing) RF: 0 cholecalciferol (vitamin D3) [Vitamin D3] 1,000 unit Tablet 1,000 unit PO QAM RF: 0 gabapentin 100 mg Capsule 100 mg PO TID RF: 0 venlafaxine 75 mg Capsule,Extended Release 24hr 75 mg PO QAM RF: 0 trazodone 100 mg Tablet 200 mg PO HS RF: 0 metoprolol tartrate 50 mg Tablet 100 mg PO BID RF: 0 zolpidem 5 mg Tablet 5 mg PO HS PRN (Reason: Insomnia) RF: 0 oxycodone 5 mg Tablet 10 mg PO Q6H PRN (Reason: Pain) RF: 0 mupirocin 2 % Ointment 1 applic TOPICAL BID RF: 0 Discontinued amlodipine 10 mg Tablet 10 mg PO QAM RF: 0 Visit Report Forms: [facility] Portal Stand-Alone Forms: [facility] Discharge Orders: Discharge Order (Routine); Ordered 09/15/18 Ordered By: Dee Sierra Admission Data Admit Date/Time: 09/14/18 05:57 Attending Provider: Dee Sierra Admit Provider: Ronak Nguyen Primary Care Provider: Manoj Goins Other Providers: Ronak Nguyen ; Mikey Jaquez ; Chico Underwood ; Mc House ; Sree Quinonez ; Apollo Figueroa ; Javan Maravilla ; Ninoska aZmora ; Kenia Guzman Service: Telemetry Other Interventions: Discharge Summary Assessment (RN) Last Done: 09/15/18 15:56 DC Date/Time DO NOT enter until pt leaves facility: 09/15/18 15:57
[2018-09-16] MEDS ORDERED: dilTIAZem HCL 180 MG CAPCR PO SCH (09:00)
== END 2018-09-15 15:57 | disposition home or self-care (01) | DRG 392 ==
LOC: ED 01:47 → 2S 05:57
DX: G47.33 Obstructive sleep apnea (adult) (pediatric); A08.4 Viral intestinal infection, unspecified; Z99.3 Dependence on wheelchair; Z88.1 Allergy status to other antibiotic agents; Z91.018 Allergy to other foods; Z79.4 Long term (current) use of insulin; E11.22 Type 2 diabetes mellitus with diabetic chronic kidney disease; Z99.81 Dependence on supplemental oxygen; Z79.01 Long term (current) use of anticoagulants; J96.11 Chronic respiratory failure with hypoxia; N17.9 Acute kidney failure, unspecified; Z79.899 Other long term (current) drug therapy; N18.3 Chronic kidney disease, stage 3 (moderate); E78.5 Hyperlipidemia, unspecified; J44.9 Chronic obstructive pulmonary disease, unspecified; I50.812 Chronic right heart failure; I50.32 Chronic diastolic (congestive) heart failure; Z98.890 Other specified postprocedural states; F31.9 Bipolar disorder, unspecified; K21.9 Gastro-esophageal reflux disease without esophagitis; I48.1 Persistent atrial fibrillation; Z86.718 Personal history of other venous thrombosis and embolism; G89.29 Other chronic pain; Z79.891 Long term (current) use of opiate analgesic; I13.0 Hypertensive heart and chronic kidney disease with heart failure and stage 1 through stage 4 chronic kidney disease, or unspecified chronic kidney disease; F17.210 Nicotine dependence, cigarettes, uncomplicated; Z88.8 Allergy status to other drugs, medicaments and biological substances

== ENCOUNTER 2019-11-28 03:48 | Inpatient (IN) ==
[2019-11-28] MEDS ORDERED: ALBUT/IPRATROP 3MG/0.5MG NEB 3 ML VIAL ONE (03:52)
--- NOTE | 2019-11-28 04:02 | Emergency Department Note ---
ED Provider Note NAME: ALVARO ROBERTS AGE: 64 SEX: F ARRIVES VIA: Ambulance INFORMANT: [Patient] ED PROVIDER(S): [Mary Walton, ] CHIEF COMPLAINT: Shortness of breath and a productive cough; chest pain IMPRESSION: [Chest pain; COPD exacerbation] PLAN: [facility]: [Good] MEDICAL DECISION MAKING: This is a 64-year-old female patient who presents to the emergency department with a shortness of breath and productive cough for the past 24 hours. The patient was febrile at home and for EMS. Patient awoke from sleep with an episode of left-sided mid chest pain and called EMS. Patient has a history of COPD and continues to smoke. Chest x-ray was concerning for bilateral infiltr ative process most likely pneumonia. Triage Nursing notes reviewed and agree them. [Prior medical records reviewed] Vital Signs: reviewed and remarkable for hypertension Differential diagnosis: Pneumonia, influenza, COPD exacerbation, acute cardiac ischemia bronchitis, URI, ER treatment provided: DuoNeb treatment, Solu-Medrol, Diagnostics interpreted by me: ECG: Normal sinus rhythm with PACs at a rate of 84. There is a right bundle branch block. There is no obvious ischemia. This was compared to an EKG from 09/19/2019 and was unchanged Cardiac Monitoring: Sinus tachycardia at a rate of 104 Laboratory studies: [See below] Imaging studies: Portable chest x-ray: Prosthetic valve noted. She has a left-sided pleural effusion. There is interstitial thickening consistent with pulmonary vascular congestion and what looks to be bilateral pulmonary opacities concerning for p neumonia. Consultation(s): 0540: Dr. Gilliam HPI: This is a 64-year-old female who presents to the emergency department complaining of a productive cough and increasing shortness of breath since 5 PM last evening. The patient felt febrile. She states that she felt so short of breath that she was only able to smoke 1 cigarette last evening which is unusual for her. The patient states that she was feeling generally unwell on Friday and had to take some Tylenol. She states that she awoke at 3 AM this morning with some chest discomfort in the left middle part of her chest for which prompted her to call 911. She denied any associated nausea or diaphoresis. She states that her shortness of breath did seem to be somewhat increased. ROS: See above HPI for pertinent positives & negatives. A total of [10] systems reviewed and were otherwise negative. PAST MEDICAL HISTORY:[See Below] PAST SURGICAL HISTORY:[See Below] FAMILY HISTORY:[See Below] SOCIAL HISTORY:[See Below] HOME MEDICATIONS:[See Below] ALLERGIES:[See Below] VITALS:[See Below] PHYSICAL EXAMINATION: This is an obese female patient who appears mildly short of breath on physical exam. HEENT: Head - normocephalic and atraumatic Pupils are equal, round, and reactive to light. Extraocular eye muscles are intact, and sclera are anicteric. Nose - moist nasal mucosa without discharge. Mouth - moist buccal mucosa. Oropharynx is nonerythematous and there is no tonsillar exudate or edema noted. Neck: Supple; no JVD, nuchal rigidity, cervical lymphadenopathy. Heart: Regular rate and rhythm. There is a normal S1 and S2 with no murmurs, clicks, or gallops appreciated. Lungs: Breath sounds in all lung mills with inspiratory and expiratory wheezing and rhonchi at both lung bases Abdomen: Soft, completely nontender, nondistended, with good bowel sounds. There are no palpable pulsatile masses or hepatosplenomegaly. There is no guarding, rigidity, or rebound noted. Extremities: No evidence of cyanosis, clubbing, or edema. There are easily palpable peripheral pulses. Skin: warm and dry with good turgor and no rashes. ED COURSE: 0405: The patient was evaluated in room C9. A complete history and physical was performed. Previous electronic medical records were reviewed. An IV lock was initiated and a septic protocol was performed including blood cultures. An order was placed for continuous cardiac monitoring. The patient was in a sinus tachycardia at a rate of 108. A twelve-lead EKG was obtained. A portable chest x-ray was ordered 0515: The patient is sleeping at this time. Vitals are stable. Repeat temp was 37.3. 0550: The patient is resting comfortably at this time. She is no longer having any chest discomfort. [facility]. Impression & Plan Left-sided chest pain, Acute exacerbation of chronic obstructive pulmonary disease Past Med/Surg History Social History Preferred Language: Malay Communication Ability: Effective Visual Impairment: No Limitations [employer] Products Inspector Required: No Beliefs That Will Affect Care: Hoahaoism Hoahaoism Beliefs: SCIENTOLOGIST marital status: / Current Living Situation: Alone Other Information That Helps Us Care for You: No Feels Safe at Home: Yes Safety Concerns: Feels Safe At This Time Smoking Status: Current every day smoker Tobacco Type: cigarettes ; Cigarettes Per Day: 10 ; Second Hand Exposure: No ; Hx Alcohol Use: No Hx Substance Use: No Results & Data Vital Signs Vital Signs - 24 hr 11/28/19 03:36 11/28/19 04:00 11/28/19 04:30 Temperature 37.4 C Temperature Source Oral Pulse Rate 96 H 82 85 Pulse Rate [Right Finger] Pulse Rate from SpO2 Sensor 82 82 Pulse Rhythm Regular Pulse Strength Normal Respiratory Rate 20 19 20 Respiratory Effort / Characteristics Non-Labored Respiratory Depth Normal Respiratory Pattern Regular Blood Pressure 166/66 H 160/59 H 106/83 Blood Pressure Mean 99 81 90 Blood Pressure Position Lying Pulse Oximetry 90 95 91 Oxygen Delivery Method Room Air Oxygen Flow Rate 3 Sepsis Recent Fever Within 48 Hours Yes Sepsis New/Unexplained Change in Mental Status No Sepsis Action Taken by Nursing No Action Required 11/28/19 04:34 11/28/19 05:00 11/28/19 05:30 Temperature Temperature Source Pulse Rate 76 78 Pulse Rate [Right Finger] 87 Pulse Rate from SpO2 Sensor 79 76 Pulse Rhythm Pulse Strength Respiratory Rate 17 22 23 Respiratory Effort / Characteristics Non-Labored Respiratory Depth Respiratory Pattern Blood Pressure 109/55 L 129/30 L Blood Pressure Mean 82 63 Blood Pressure Position Pulse Oximetry 95 94 94 Oxygen Delivery Method Nasal Cannula Oxygen Flow Rate 3 Sepsis Recent Fever Within 48 Hours Sepsis New/Unexplained Change in Mental Status Sepsis Action Taken by Nursing 11/28/19 06:00 11/28/19 06:30 Temperature Temperature Source Pulse Rate 76 78 Pulse Rate [Right Finger] Pulse Rate from SpO2 Sensor 76 80 Pulse Rhythm Pulse Strength Respiratory Rate 24 25 H Respiratory Effort / Characteristics Respiratory Depth Respiratory Pattern Blood Pressure 138/52 L 137/83 Blood Pressure Mean 105 98 Blood Pressure Position Pulse Oximetry 95 95 Oxygen Delivery Method Oxygen Flow Rate Sepsis Recent Fever Within 48 Hours Sepsis New/Unexplained Change in Mental Status Sepsis Action Taken by Nursing Laboratory Data Result diagrams: 11/28/19 04:10 11/28/19 04:10 Lab Results 03/15/20 03/15/20 03/15/20 Range/Units 04:00 04:10 04:10 WBC 7.61 (4.8-10.8) K/uL RBC 4.42 (4.2-5.4) M/uL Hgb 13.7 (12.0-16.0) g/dL Hct 41.1 (37-47) % MCV 93.0 (80-100) fL MCH 31.0 (25-34) pg MCHC 33.3 (32-36) g/dL RDW Std Deviation 49.2 H (36.4-46.3) fL RDW Coeff of King 14.4 (11.5-14.5) % Plt Count 182 (130-400) K/uL MPV 10.4 (7.4-10.4) fL Immature Gran % (Auto) 0.3 % Neut % (Auto) 78.2 % Lymph % (Auto) 12.1 % [place] % (Auto) 9.2 % Eos % (Auto) 0.1 % Baso % (Auto) 0.1 % Immature Gran # (Auto) 0.02 (0.00-0.02) K/uL Neut # (Auto) 5.95 (1.4-6.5) K/uL Lymph # (Auto) 0.92 L (1.2-3.4) K/uL [place] # (Auto) 0.70 H (0.11-0.59) K/uL Eos # (Auto) 0.01 (0-0.5) K/uL Baso # (Auto) 0.01 (0-0.2) K/uL PT Cancelled INR Cancelled APTT Cancelled PTT Ratio Cancelled Sodium (136-145) mmol/L Potassium (3.5-5.1) mmol/L Chloride (98-107) mmol/L Carbon Dioxide (21-32) mmol/L Anion Gap (3-11) BUN (7-18) mg/dl Creatinine (0.6-1.2) mg/dl Est Cr Clr Drug Dosing ml/min Est GFR ( Amer) Est GFR (Non-Af Amer) BUN/Creatinine Ratio (10-20) Glucose (70-99) mg/dl Lactate (0.4-2.0) mmol/L Calcium (8.5-10.1) mg/dl Magnesium (1.8-2.4) mg/dl Total Bilirubin (0.2-1) mg/dl AST (15-37) U/L ALT (12-78) U/L Alkaline Phosphatase (45-117) U/L Troponin I (0-0.045) ng/ml NT-Pro-B Natriuret Pep (0-900) pg/ml Total Protein (6.4-8.2) gm/dl Albumin (3.4-5.0) gm/dl Globulin (2.5-4.0) gm/dl Albumin/Globulin Ratio (0.9-2) Specimen Hemolysis Urine Color Urine Appearance (Clear) Urine pH (4.5-7.5) Ur Specific [place] (1.000-1.030) Urine Protein (Negative) Urine Glucose (UA) (Negative) Urine Ketones (Negative) Urine Blood (Negative) Urine Nitrite (Negative) Urine Bilirubin (Negative) Urine Urobilinogen (Negative) Ur Leukocyte Esterase (Negative) Urine WBC (Auto) (0-5) /hpf Urine RBC (Auto) (0-4) /hpf U Hyaline Cast (Auto) (0-5) /lpf U Epithel Cells (Auto) (0-5) /lpf Urine Bacteria (Auto) (Negative) Influenza Type A (PCR) Neg for Influ A (Neg) Influenza Type B (PCR) Neg for Influ B (Neg) 11/28/19 11/28/19 11/28/19 Range/Units 04:10 04:10 04:25 WBC (4.8-10.8) K/uL RBC (4.2-5.4) M/uL Hgb (12.0-16.0) g/dL Hct (37-47) % MCV (80-100) fL MCH (25-34) pg MCHC (32-36) g/dL RDW Std Deviation (36.4-46.3) fL RDW Coeff of King (11.5-14.5) % Plt Count (130-400) K/uL MPV (7.4-10.4) fL Immature Gran % (Auto) % Neut % (Auto) % Lymph % (Auto) % [place] % (Auto) % Eos % (Auto) % Baso % (Auto) % Immature Gran # (Auto) (0.00-0.02) K/uL Neut # (Auto) (1.4-6.5) K/uL Lymph # (Auto) (1.2-3.4) K/uL [place] # (Auto) (0.11-0.59) K/uL Eos # (Auto) (0-0.5) K/uL Baso # (Auto) (0-0.2) K/uL PT INR APTT PTT Ratio Sodium 136 (136-145) mmol/L Potassium 4.4 (3.5-5.1) mmol/L Chloride 101 (98-107) mmol/L Carbon Dioxide 32 (21-32) mmol/L Anion Gap 3.0 (3-11) BUN 17 (7-18) mg/dl Creatinine 1.18 (0.6-1.2) mg/dl Est Cr Clr Drug Dosing 56.2 ml/min Est GFR ( Amer) 56.8 Est GFR (Non-Af Amer) 49.0 BUN/Creatinine Ratio 14.5 (10-20) Glucose 107 H (70-99) mg/dl Lactate (0.4-2.0) mmol/L Calcium 8.7 (8.5-10.1) mg/dl Magnesium 2.0 (1.8-2.4) mg/dl Total Bilirubin 0.3 (0.2-1) mg/dl AST 76 H (15-37) U/L ALT 107 H (12-78) U/L Alkaline Phosphatase 71 (45-117) U/L Troponin I 0.039 (0-0.045) ng/ml NT-Pro-B Natriuret Pep 1888 H (0-900) pg/ml Total Protein 7.1 (6.4-8.2) gm/dl Albumin 2.7 L (3.4-5.0) gm/dl Globulin 4.4 H (2.5-4.0) gm/dl Albumin/Globulin Ratio 0.6 L (0.9-2) Specimen Hemolysis Urine Color Yellow Urine Appearance Clear (Clear) Urine pH 6.5 (4.5-7.5) Ur Specific [place] 1.009 (1.000-1.030) Urine Protein 2+ H (Negative) Urine Glucose (UA) Negative (Negative) Urine Ketones Negative (Negative) Urine Blood 2+ H (Negative) Urine Nitrite Negative (Negative) Urine Bilirubin Negative (Negative) Urine Urobilinogen Negative (Negative) Ur Leukocyte Esterase Negative (Negative) Urine WBC (Auto) 1-5 (0-5) /hpf Urine RBC (Auto) 10-30 H (0-4) /hpf U Hyaline Cast (Auto) 1-5 (0-5) /lpf U Epithel Cells (Auto) >30 H (0-5) /lpf Urine Bacteria (Auto) Negative (Negative) Influenza Type A (PCR) (Neg) Influenza Type B (PCR) (Neg) 11/28/19 11/28/19 Range/Units 04:51 04:52 WBC (4.8-10.8) K/uL RBC (4.2-5.4) M/uL Hgb (12.0-16.0) g/dL Hct (37-47) % MCV (80-100) fL MCH (25-34) pg MCHC (32-36) g/dL RDW Std Deviation (36.4-46.3) fL RDW Coeff of King (11.5-14.5) % Plt Count (130-400) K/uL MPV (7.4-10.4) fL Immature Gran % (Auto) % Neut % (Auto) % Lymph % (Auto) % [place] % (Auto) % Eos % (Auto) % Baso % (Auto) % Immature Gran # (Auto) (0.00-0.02) K/uL Neut # (Auto) (1.4-6.5) K/uL Lymph # (Auto) (1.2-3.4) K/uL [place] # (Auto) (0.11-0.59) K/uL Eos # (Auto) (0-0.5) K/uL Baso # (Auto) (0-0.2) K/uL PT 25.1 H INR 2.5 H APTT 46.0 H* PTT Ratio 1.6 Sodium (136-145) mmol/L Potassium (3.5-5.1) mmol/L Chloride (98-107) mmol/L Carbon Dioxide (21-32) mmol/L Anion Gap (3-11) BUN (7-18) mg/dl Creatinine (0.6-1.2) mg/dl Est Cr Clr Drug Dosing ml/min Est GFR ( Amer) Est GFR (Non-Af Amer) BUN/Creatinine Ratio (10-20) Glucose (70-99) mg/dl Lactate 0.7 (0.4-2.0) mmol/L Calcium (8.5-10.1) mg/dl Magnesium (1.8-2.4) mg/dl Total Bilirubin (0.2-1) mg/dl AST (15-37) U/L ALT (12-78) U/L Alkaline Phosphatase (45-117) U/L Troponin I (0-0.045) ng/ml NT-Pro-B Natriuret Pep (0-900) pg/ml Total Protein (6.4-8.2) gm/dl Albumin (3.4-5.0) gm/dl Globulin (2.5-4.0) gm/dl Albumin/Globulin Ratio (0.9-2) Specimen Hemolysis Urine Color Urine Appearance (Clear) Urine pH (4.5-7.5) Ur Specific [place] (1.000-1.030) Urine Protein (Negative) Urine Glucose (UA) (Negative) Urine Ketones (Negative) Urine Blood (Negative) Urine Nitrite (Negative) Urine Bilirubin (Negative) Urine Urobilinogen (Negative) Ur Leukocyte Esterase (Negative) Urine WBC (Auto) (0-5) /hpf Urine RBC (Auto) (0-4) /hpf U Hyaline Cast (Auto) (0-5) /lpf U Epithel Cells (Auto) (0-5) /lpf Urine Bacteria (Auto) (Negative) Influenza Type A (PCR) (Neg) Influenza Type B (PCR) (Neg) Administered Medications Doxycycline Hyclate 100 mg/ (Dextrose) 110 mls @ 50 mls/hr IV NOW STA Stop: 11/28/19 08:05 Last Admin: 11/28/19 06:04 Dose: 50 mls/hr Documented by: [id number] Discontinued Medications Albuterol (Duoneb) 3 ml NEB NOW STA Stop: 11/28/19 04:16 Last Admin: 11/28/19 04:33 Dose: 3 ml Documented by: [id number] Furosemide (Lasix) 40 mg IV NOW STA Stop: 11/28/19 05:54 Last Admin: 11/28/19 06:03 Dose: 40 mg Documented by: [id number] Methylprednisolone (Solumedrol) 125 mg IV NOW STA Stop: 11/28/19 04:16 Last Admin: 11/28/19 04:39 Dose: 125 mg Documented by: [id number] Discharge Plan Visit Data Chief Complaint: Shortness of Breath/Dyspnea Stated Complaint: Breathing difficulty ED Provider: Mary Walton Discharge Problem: Left-sided chest pain, Acute exacerbation of chronic obstructive pulmonary disease
[2019-11-28] MEDS ORDERED: methylPREDNISolone 125 MG/2 ML VIAL IV STA (04:15)
[2019-11-28] MEDS ORDERED: ALBUT/IPRATROP 3MG/0.5MG NEB 3 ML VIAL NEB STA (04:15)
[2019-11-28 04:26] LABS: Basophils # (auto) 0.01 K/uL (0-0.2); Basophils % (auto) 0.1 %; Eosinophils # (auto) 0.01 K/uL (0-0.5); Eosinophils % (auto) 0.1 %; Hematocrit (blood only) 41.1 % (37-47); Hemoglobin 13.7 g/dL (12.0-16.0); Immature Granulocytes # (auto) 0.02 K/uL (0.00-0.02); Immature Granulocytes % (auto) 0.3 %; Lymphocytes # (auto) 0.92 K/uL (1.2-3.4); Lymphocytes % (auto) 12.1 %; Mean Corpuscular Hgb Conc 33.3 g/dL (32-36); Mean Platelet Volume 10.4 fL (7.4-10.4); Monocytes % (auto) 9.2 %; Neutrophils # (auto) 5.95 K/uL (1.4-6.5); Neutrophils % (auto) 78.2 %; Platelet Count 182 K/uL (130-400); RDW Coefficient of Variation 14.4 % (11.5-14.5); RDW Standard Deviation 49.2 fL (36.4-46.3); Red Blood Count 4.42 M/uL (4.2-5.4); White Blood Count 7.61 K/uL (4.8-10.8)
[2019-11-28 04:39] LABS: Appearance Urine Clear (Clear); Bacteria Urine Automated Negative (Negative); Bilirubin Urine Negative (Negative); Blood Urine 2+ (Negative); Color Urine Yellow; Epithelial Cell Urine Auto >30 /lpf (0-5); Glucose Urine UA Negative (Negative); Ketones Urine Negative (Negative); Leukocyte Esterase Urine Negative (Negative); Nitrite Urine Negative (Negative); Protein Urine 2+ (Negative); Specific Gravity Urine 1.009 (1.000-1.030); Urobilinogen Urine Negative (Negative); pH Urine 6.5 (4.5-7.5)
[2019-11-28 04:46] LABS: Albumin Level 2.7 gm/dl (3.4-5.0); BUN Creatinine Ratio 14.5 (10-20); Calcium 8.7 mg/dl (8.5-10.1); Creatinine Clr Calc Pharmacy 56.2 ml/min; Est GFR (African American) 56.8; Potassium 4.4 mmol/L (3.5-5.1)
[2019-11-28 04:51] LABS: Albumin Globulin Ratio 0.6 (0.9-2); Bilirubin,Total 0.3 mg/dl (0.2-1); Globulin 4.4 gm/dl (2.5-4.0); Total Protein 7.1 gm/dl (6.4-8.2); Troponin I 0.039 ng/ml (0-0.045)
[2019-11-28 04:58] LABS: Influenza A virus by PCR Neg for Influ A (Neg); Influenza B virus by PCR Neg for Influ B (Neg)
[2019-11-28 05:33] LABS: INR 2.5 (0.9-1.1); Partial Thromboplastin Ratio 1.6; Prothrombin Time 25.1 Seconds (9.0-12.0)
[2019-11-28] MEDS ORDERED: FUROSEMIDE 40 MG/4 ML VIAL IV STA (05:53)
[2019-11-28] MEDS ORDERED: DOXYCYCLINE HYCLATE 100 MG in DEXTROSE 5% 100 ML IV STA (05:54)
--- NOTE | 2019-11-28 06:08 | History & Physical Report ---
Date of Service November 28, 2019 Assessment & Plan (1) Respiratory failure, acute and chronic: History chronic respiratory failure secondary to COPD on home O2, DARIUS on BiPAP, history of pulmonary pretension Multifactorial : COPD exacerbation, complicated bronchitis, patient not septic Decompensated heart failure, history diastolic dysfunction atrial flutter status post ablation on Coumadin Patient NSR, INR therapeutic HTN, stable hx CVA as per records, chronic pain on narcotics DM2 insulin requiring, suboptimal control as of recent outpatient hemoglobin A1c of 8.21 August 2019 anxiety/mood disorder, at baseline History medication noncompliance PCU Supplemental O2 Baseline ABG Doxycycline, nebs, low-dose prednisone course given poorly controlled DM 2 Pulmonary consult if wo improvement Diuretic Rx Strict I/Os, daily weights, CHF education, fluid restriction Cardiology consult RE decompensated heart failure Basal insulin, ISS BG goal [id number], carb count coverage DVT prophylaxis. Coumadin INR goal between 2 and 3 Full code Text document was generated using Clever[employer] voice recognition software. It may contain grammatical or spelling errors. Kindly contact undersigned for clarification of any documentation item in question. History of Present Illness Chief Complaint: Worsening cough, S OB Primary Care Provider: Hector Sierra History obtained from patient and records. Medical history is significant for chronic diastolic heart failure, EF of 55-59% (TTE 2019), atrial flutter status post ablation on Coumadin, cardiac fibroblastoma status post surgery, HTN chronic respiratory failure secondary to COPD on home O2, DARIUS on BIPAP, history of pulmonary hypertension, ongoing tobacco abuse, hx CVA as per records, chronic pain on narcotics, DM2 insulin requiring, gastroparesis per records, anxiety/mood disorder. Recent confinement October 2018 for CHF 2 to rapid A. fib. sp post cardi oversion. 2 days history of cough symptoms productive of junky sputum and worsening shortness of breath without chest pain. Unquantified weight gain as per patient despite compliance with home diuretic regimen and fluid restriction as per patient. At the ER, patient received Solu-Medrol and neb treatment for COPD exacerbation. MEDICAL HISTORY: As above. SURGERIES: She has had hysterectomy, appendectomy, cholecystectomy, lumpectomy, mitral valve repair, tubal ligation, umbilical hernia repair, carpal tunnel surgery, Ear surgery, section, FAMILY HISTORY: Heart disease. IBD, diabetes PERSONAL AND SOCIAL HISTORY: Eight cigarettes a day, disabled, no chronic intake of alcoholic beverages. Allergies Allergy/AdvReac Type Severity Reaction Status Date / Time bee venom protein (honey bee) Allergy Severe SWELLING Verified 11/28/19 04:25 lisinopril Allergy Intermediate FACE Verified 11/28/19 04:25 SWELLING potato Allergy Intermediate BBQ chips Verified 11/28/19 04:25 - facial swelling metronidazole Allergy Mild FACE Verified 11/28/19 04:25 SWELLING strawberry Allergy Mild HIVES Verified 11/28/19 04:25 alprazolam Allergy Unknown RED FACE, Verified 11/28/19 04:25 FACE SWELLING lactose AdvReac Intermediate VOMTING Verified 11/28/19 04:25 DIARRHEA ABDOMINAL PAIN-LACTOSE INTOLERANCE prednisone AdvReac Mild AGGRESSIVE Verified 11/28/19 04:25 BEHAVIOR colesevelam AdvReac Unknown unknown Verified 11/28/19 04:25 lithium AdvReac Unknown jitters Verified 11/28/19 04:25 Home Medications Home Medications Medication Instructions Recorded Confirmed Type Lantus U-100 Insulin 16 unit SUBCUT BID 06/19/18 11/28/19 History Spiriva with HandiHaler 1 cap INHALATION QAM 06/19/18 11/28/19 History albuterol sulfate 2.5 mg INHALATION Q6 PRN 06/19/18 11/28/19 History atorvastatin 40 mg PO HS 06/19/18 11/28/19 History calcitriol 0.5 mcg PO QAM 06/19/18 11/28/19 History cetirizine 10 mg PO HS 06/19/18 11/28/19 History cholecalciferol (vitamin D3) 1,000 unit PO QAM 06/19/18 11/28/19 History [Vitamin D3] docusate sodium 100 mg PO DAILY PRN 06/19/18 11/28/19 History epinephrine [EpiPen] 0.3 mg IM Q3H PRN 06/19/18 11/28/19 History fentanyl [Duragesic] 1 patch TRANSDERMAL Q72H 06/19/18 11/28/19 History furosemide 60 mg PO BID 06/19/18 11/28/19 History methocarbamol 750 mg PO TID PRN 06/19/18 11/28/19 History multivitamin 1 tab PO QAM 06/19/18 11/28/19 History ondansetron 8 mg PO BID PRN 06/19/18 11/28/19 History venlafaxine 150 mg PO QAM 06/19/18 11/28/19 History warfarin 5 mg PO SUTUWETHSA 06/19/18 11/28/19 History metoprolol tartrate 100 mg PO BID 09/14/18 11/28/19 History oxycodone 10 mg PO Q6H PRN 09/14/18 11/28/19 History trazodone 200 mg PO HS 09/14/18 11/28/19 History venlafaxine 75 mg PO QAM 09/14/18 11/28/19 History zolpidem 5 mg PO HS PRN 09/14/18 11/28/19 History loperamide [Imodium A-D] 2 mg PO Q6H PRN 03/01/19 11/28/19 History amitriptyline 50 mg PO HS 05/28/19 11/28/19 History amlodipine 10 mg PO QAM 05/28/19 11/28/19 History diclofenac sodium 2 g TOPICAL QID PRN 05/28/19 11/28/19 History gabapentin 800 mg PO BID 05/28/19 11/28/19 History lorazepam 1 mg PO TID 05/28/19 11/28/19 History albuterol sulfate 90 mcg/actuation 2 puffs INH Q6H PRN #18 gm 06/10/19 11/28/19 Rx aerosol inhaler alendronate 70 mg tablet 70 mg PO WE tab 06/10/19 11/28/19 History metformin 1,000 mg PO BID 07/13/19 11/28/19 History warfarin 7.5 mg PO MOFR 09/19/19 11/28/19 History Past Med/Surg History Social History Preferred Language: Czech Communication Ability: Effective Visual Impairment: No Limitations Seo Team Lead Required: No Beliefs That Will Affect Care: Caodaism Caodaism Beliefs: GNOSTICISM marital status: / Current Living Situation: Alone Other Information That Helps Us Care for You: No Feels Safe at Home: Yes Safety Concerns: Feels Safe At This Time Smoking Status: Current every day smoker Tobacco Type: cigarettes ; Cigarettes Per Day: 10 ; Second Hand Exposure: No ; Hx Alcohol Use: No Hx Substance Use: No Review of Systems Review of Systems: As per HPI, all 10 systems reviewed, all other ROS negative Physical Exam Physical Exam: GENERAL: Comfortable, obese , min respiratory distress SKIN: Normal color, warm HEENT: [place] palpebral conjunctivae, no ptosis, dry buccal mucosa, nasal cannula in place NECK : Supple, short neck, no tenderness CHEST : Decreased breath sounds, expiratory wheezes , no tenderness HEART : RRR, no obvious murmurs ABDOMEN: Some distention, nontender EXTREMITIES : Chronic LE venous stasis without tenderness, no other conspicuous deformities noted NEUROLOGIC : Coherent, no facial asymmetry, no other gross focality Results & Data Vital Signs (Past 12 Hours) Vital Signs Temp Pulse Pulse Resp BP Pulse Ox 11/28/19 05:30 78 23 129/30 L 94 11/28/19 05:00 76 22 109/55 L 94 11/28/19 04:34 87 17 95 11/28/19 04:30 85 20 106/83 91 11/28/19 04:00 82 19 160/59 H 95 11/28/19 03:36 37.4 C 96 H 20 166/66 H 90 Laboratory Results Laboratory Results WBC 7.61 K/uL (4.8-10.8) 11/28/19 04:10 RBC 4.42 M/uL (4.2-5.4) 11/28/19 04:10 Hgb 13.7 g/dL (12.0-16.0) 11/28/19 04:10 Hct 41.1 % (37-47) 11/28/19 04:10 MCV 93.0 fL (80-100) 11/28/19 04:10 MCH 31.0 pg (25-34) 11/28/19 04:10 MCHC 33.3 g/dL (32-36) 11/28/19 04:10 RDW Std Deviation 49.2 fL (36.4-46.3) H 11/28/19 04:10 RDW Coeff of King 14.4 % (11.5-14.5) 11/28/19 04:10 Plt Count 182 K/uL (130-400) 11/28/19 04:10 MPV 10.4 fL (7.4-10.4) 11/28/19 04:10 Immature Gran % (Auto) 0.3 % 11/28/19 04:10 Neut % (Auto) 78.2 % 11/28/19 04:10 Lymph % (Auto) 12.1 % 11/28/19 04:10 [place] % (Auto) 9.2 % 11/28/19 04:10 Eos % (Auto) 0.1 % 11/28/19 04:10 Baso % (Auto) 0.1 % 11/28/19 04:10 Immature Gran # (Auto) 0.02 K/uL (0.00-0.02) 11/28/19 04:10 Neut # (Auto) 5.95 K/uL (1.4-6.5) 11/28/19 04:10 Lymph # (Auto) 0.92 K/uL (1.2-3.4) L 11/28/19 04:10 [place] # (Auto) 0.70 K/uL (0.11-0.59) H 11/28/19 04:10 Eos # (Auto) 0.01 K/uL (0-0.5) 11/28/19 04:10 Baso # (Auto) 0.01 K/uL (0-0.2) 11/28/19 04:10 PT 25.1 Seconds (9.0-12.0) H 11/28/19 04:52 INR 2.5 (0.9-1.1) H 11/28/19 04:52 APTT 46.0 Seconds (21.0-31.0) H* 11/28/19 04:52 PTT Ratio 1.6 11/28/19 04:52 Sodium 136 mmol/L (136-145) 11/28/19 04:10 Potassium 4.4 mmol/L (3.5-5.1) 11/28/19 04:10 Chloride 101 mmol/L (98-107) 11/28/19 04:10 Carbon Dioxide 32 mmol/L (21-32) 11/28/19 04:10 Anion Gap 3.0 (3-11) 11/28/19 04:10 BUN 17 mg/dl (7-18) 11/28/19 04:10 Creatinine 1.18 mg/dl (0.6-1.2) 11/28/19 04:10 Est Cr Clr Drug Dosing 56.2 ml/min 11/28/19 04:10 Est GFR ( Amer) 56.8 11/28/19 04:10 Est GFR (Non-Af Amer) 49.0 11/28/19 04:10 BUN/Creatinine Ratio 14.5 (10-20) 11/28/19 04:10 Glucose 107 mg/dl (70-99) H 11/28/19 04:10 Lactate 0.7 mmol/L (0.4-2.0) 11/28/19 04:51 Calcium 8.7 mg/dl (8.5-10.1) 11/28/19 04:10 Magnesium 2.0 mg/dl (1.8-2.4) 11/28/19 04:10 Total Bilirubin 0.3 mg/dl (0.2-1) 11/28/19 04:10 AST 76 U/L (15-37) H 11/28/19 04:10 ALT 107 U/L (12-78) H 11/28/19 04:10 Alkaline Phosphatase 71 U/L (45-117) 11/28/19 04:10 Troponin I 0.039 ng/ml (0-0.045) 11/28/19 04:10 Total Protein 7.1 gm/dl (6.4-8.2) 11/28/19 04:10 Albumin 2.7 gm/dl (3.4-5.0) L 11/28/19 04:10 Globulin 4.4 gm/dl (2.5-4.0) H 11/28/19 04:10 Albumin/Globulin Ratio 0.6 (0.9-2) L 11/28/19 04:10 Specimen Hemolysis 11/28/19 04:10 Urine Color Yellow 11/28/19 04:25 Urine Appearance Clear (Clear) 11/28/19 04:25 Urine pH 6.5 (4.5-7.5) 11/28/19 04:25 Ur Specific Mccoy 1.009 (1.000-1.030) 11/28/19 04:25 Urine Protein 2+ (Negative) H 11/28/19 04:25 Urine Glucose (UA) Negative (Negative) 11/28/19 04:25 Urine Ketones Negative (Negative) 11/28/19 04:25 Urine Blood 2+ (Negative) H 11/28/19 04:25 Urine Nitrite Negative (Negative) 11/28/19 04:25 Urine Bilirubin Negative (Negative) 11/28/19 04:25 Urine Urobilinogen Negative (Negative) 11/28/19 04:25 Ur Leukocyte Esterase Negative (Negative) 11/28/19 04:25 Urine WBC (Auto) 1-5 /hpf (0-5) 11/28/19 04:25 Urine RBC (Auto) 10-30 /hpf (0-4) H 11/28/19 04:25 U Hyaline Cast (Auto) 1-5 /lpf (0-5) 11/28/19 04:25 U Epithel Cells (Auto) >30 /lpf (0-5) H 11/28/19 04:25 Urine Bacteria (Auto) Negative (Negative) 11/28/19 04:25 Influenza Type A (PCR) Neg for Influ A (Neg) 11/28/19 04:00 Influenza Type B (PCR) Neg for Influ B (Neg) 11/28/19 04:00 Diagnostic Findings Chest x-ray as per my interpretation cardiomegaly, pulmonary congestion EKG cannot be located at time of dictation
--- NOTE | 2019-11-28 07:21 | XRay Report ---
XR chest 1V portable CLINICAL HISTORY: SEPSIS COMPARISON STUDY: 09/19/2019 FINDINGS: The heart remains enlarged. Valvular prosthesis is visualized. There is diffuse elevation o f interstitium consistent with congestive failure/fluid overload. There is a cyst a small right later al lung hernia. Surgical clips project over the right upper chest wall. IMPRESSION: Stable interstitial thickening consistent with congestive failure. Persistent small right lung hernia. ACT 112: Negative or not required by law. Electronically signed by: Cesar Lopez M.D. 11/28/2019 7:19 AM
[2019-11-28] MEDS ORDERED: METHOCARBAMOL 750 MG TABLET PO PRN (07:29)
[2019-11-28] MEDS ORDERED: NITROGLYCERIN SL 0.4 MG/TAB TAB SL PRN (07:29)
[2019-11-28] MEDS ORDERED: OXYCODONE HCL IR 5 MG TAB (IMMEDIATE RELEASE) PO PRN (07:29)
[2019-11-28] MEDS ORDERED: DOCUSATE SODIUM 100 MG CAP PO PRN (07:29)
[2019-11-28] MEDS ORDERED: GLUCOSE 10 TABS/TUBE PO PRN (07:29)
[2019-11-28] MEDS ORDERED: DEXTROSE 50% 50 ML SYRINGE IV PRN (07:29)
[2019-11-28] MEDS ORDERED: XOPENEX/ATROVENT 1.25mg/0.5MG NEB COMBO NEB SCH (07:29)
[2019-11-28] MEDS ORDERED: GLUCAGON FOR INJ 1 MG VIAL SQ PRN (07:29)
[2019-11-28] MEDS ORDERED: WARFARIN SOD 5 MG TAB PO SCH (07:29)
[2019-11-28] MEDS ORDERED: PROMETHAZINE HCL 12.5 MG in SODIUM CHLORIDE 0.9% 50 ML IV PRN (07:29)
[2019-11-28] MEDS ORDERED: CARBOHYDRATES FOR HYPOGLYCEMIA PO PRN (07:29)
[2019-11-28] MEDS ORDERED: GLUCOSE 40% GEL 15 GM TUBE PO PRN (07:29)
[2019-11-28] MEDS ORDERED: ACETAMINOPHEN 325 MG TAB PO PRN (07:29)
[2019-11-28] MEDS: IPRATROPIUM BROMIDE NEB SOLN 0.02% 2.5 ML VIAL INH SCH ×3 (07:47→20:03)
[2019-11-28] MEDS: LEVALBUTEROL 1.25MG/0.5ML NEB INH SCH ×3 (07:47→20:03)
[2019-11-28] MEDS ORDERED: fentaNYL 50 MCG/HR TDSY TD SCH (08:00)
[2019-11-28] MEDS: GABAPENTIN 800 MG TAB PO SCH ×2 (08:56→21:32)
[2019-11-28] MEDS: AMLODIPINE BESYLATE 5 MG TAB PO SCH (08:56)
[2019-11-28] MEDS: METOPROLOL TARTRATE 100 MG TAB PO SCH ×2 (08:56→21:33)
[2019-11-28] MEDS: MULTIVITAMIN TAB PO SCH (08:57)
[2019-11-28] MEDS: INSULIN GLARGINE SOLOSTAR 100 UNITS/ML 3 ML PEN SC SCH ×2 (08:57→20:40)
[2019-11-28] MEDS: INSULIN ASPART 100 UNITS/ML 3 ML PEN SC SCH ×4 (08:57→20:41)
[2019-11-28] MEDS: VENLAFAXINE HCL XR 75 MG CAPXR PO SCH (08:57)
[2019-11-28] MEDS: NICOTINE 7 MG/24 HR TDSY TD SCH (08:58)
[2019-11-28] MEDS ORDERED: VENLAFAXINE HCL XR 150 MG CAPXR PO SCH (09:00)
[2019-11-28] MEDS ORDERED: FUROSEMIDE 20 MG TAB PO SCH (09:00)
[2019-11-28] MEDS: LORazepam 1 MG TAB PO SCH ×3 (09:03→21:32)
--- NOTE | 2019-11-28 12:16 | Communication Note ---
Date of Service: November 28, 2019 Pt was seen and examined. Lying in bed with no distress Pt said that breathing is slightly better She said that she does not feel the pressure in her chest anymore She said that her cough improved Denies any chest pain, palpitation, dizziness and fever General- No acute distress Head- atraumatic Eyes- PERRL, EOMI, ENT- oropharynx clear Neck- supple, no JVD Lungs- +crackles Heart- regular rhythm; no murmur Abdomen- normal bowel sounds, soft, nontender Extremities- no calf tenderness Neuro- alert, oriented x 3; PERRL, EOMI; no facial palsy; no dysarthria Skin- warm & dry A/P Acute on chronic respiratory failure Presented on admission with worsening SOB associated with productive cough Possible related to COPD exacerbation, Bronchitis and CHF exarcebation CXR showed congestive failure. Afebrile and no Leukocytosis Starting on IV lasix BID Received IV solumedrol in the ER Starting on Prednisone 20mg Received IV doxycycline, then transition to PO doxy Continue neb treatment Will continue monitor closely Acute Diastolic CHF ProBNP 1888 Continue IV lasix BID Cardiology on board Will continue IV lasix for now Will monitor I/O ECHO pending Continue metoprolol COPD exacerbation Possible related to bronchitis Received IV solumedrol and Doxy Continue Prednisone, doxy and neb treatment Continue oxygen supplement Diabetes type 2 A1c of 8.21 August 2019 Continue Lantus 20mg BID On Novolog sliding scale Afib rate controlled Continue Metoprolol and coumadin with INR therapeutic Continue monitor DVT px on Coumadin with INR therapeutic CODE STATUS FULL CODE
--- NOTE | 2019-11-28 13:43 | Cardiology Consultation ---
Date of Consultation November 28, 2019 Assessment & Plan (1) Respiratory failure, acute and chronic: Multifactorial respiratory insufficiency with underlying COPD, cor pulmonale physiology, acute on chronic diastolic heart failure. Agree with current diuretic dose as well as treatment with doxycycline, bronchodilators, corticosteroids. Patient remains in sinus rhythm. Her prior to hospital dose of Coumadin has had to be ordered, and I will order this, follow INR closely given antibiotic administration and acute illness. As well coordinate with the primary team regarding ordering the patient's home BiPAP settings of 02/08. DVT prophylaxis: Continue Coumadin. History of Present Illness Attending Physician: Elise Guillaume MD History of Present Illness Juliet Minaya is a 64 year old female who is well known to our cardiology service seen in consultation per the request of Dr Burns for the evaluation of shortness of breath, congestive heart failure. The patient describes worsening shortness of breath that progressed yesterday prompting emergency department visit. Her chest x-ray was suggestive of mild interstitial edema and her proBNP screen was elevated at 1888 PG per mL. The patient also has a history of COPD and ongoing cigarette smoking. Treatment thus far has included inhaled bronchodilators, IV corticosteroids, doxycycline, and she received 40 mg of IV furosemide at 5:53 AM with 1.6 L of subsequent urine output and resolution of her symptoms. At present during my assessment she felt well. 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 2.June 13, 2005 cardiac catheterization at [facility] revealing left dominant coronary system with small caliber distal vessels consistent with diabetic history, without obstructive disease. 3.Symptomatic atrial flutter observed initially in February 2013, status post 03/16/2013 and 10/20/2018 cardioversions. 4.May 02, [address] Masterson, successful ablation of the tricuspid valve to inferior vena caval isthmus with bidirectional block and termination of atrial flutter. Post ablation electrophysiologic study showed dual pathways with echo beats, no inducible SVT however extensive induction was not attempted 5.Coumadin prescribed secondary to the paroxysmal atrial flutter, CHADS2 Score of 5 out of 6 (CHF, HTN, DM, CVA), Lambl's Excrescences, history of DVT, and the mitral valve disease. 6.She has not been felt to be a great candidate for antiarrhythmic therapy due to QT prolongation from her psych medications. 7.Severe chronic obstructive lung disease, advanced emphysema, chronic hypoxemia with supplemental oxygen therapy PRN during the day and QHS. Ongoing tobacco abuse 8.Severe pulmonary hypertension with chronic right heart failure, cor pulmonale physiology Allergies Allergy/AdvReac Type Severity Reaction Status Date / Time bee venom protein (honey bee) Allergy Severe SWELLING Verified 11/28/19 04:25 lisinopril Allergy Intermediate FACE Verified 11/28/19 04:25 SWELLING potato Allergy Intermediate BBQ chips Verified 11/28/19 04:25 - facial swelling metronidazole Allergy Mild FACE Verified 11/28/19 04:25 SWELLING strawberry Allergy Mild HIVES Verified 11/28/19 04:25 alprazolam Allergy Unknown RED FACE, Verified 11/28/19 04:25 FACE SWELLING lactose AdvReac Intermediate VOMTING Verified 11/28/19 04:25 DIARRHEA ABDOMINAL PAIN-LACTOSE INTOLERANCE prednisone AdvReac Mild AGGRESSIVE Verified 11/28/19 04:25 BEHAVIOR colesevelam AdvReac Unknown unknown Verified 11/28/19 04:25 lithium AdvReac Unknown jitters Verified 11/28/19 04:25 Home Medications Home Medications Medication Instructions Recorded Confirmed Type Lantus U-100 Insulin 16 unit SUBCUT BID 06/19/18 11/28/19 History Spiriva with HandiHaler 1 cap INHALATION QAM 06/19/18 11/28/19 History albuterol sulfate 2.5 mg INHALATION Q6 PRN 06/19/18 11/28/19 History atorvastatin 40 mg PO HS 06/19/18 11/28/19 History calcitriol 0.5 mcg PO QAM 06/19/18 11/28/19 History cetirizine 10 mg PO HS 06/19/18 11/28/19 History cholecalciferol (vitamin D3) 1,000 unit PO QAM 06/19/18 11/28/19 History [Vitamin D3] docusate sodium 100 mg PO DAILY PRN 06/19/18 11/28/19 History epinephrine [EpiPen] 0.3 mg IM Q3H PRN 06/19/18 11/28/19 History fentanyl [Duragesic] 1 patch TRANSDERMAL Q72H 06/19/18 11/28/19 History furosemide 60 mg PO BID 06/19/18 11/28/19 History methocarbamol 750 mg PO TID PRN 06/19/18 11/28/19 History multivitamin 1 tab PO QAM 06/19/18 11/28/19 History ondansetron 8 mg PO BID PRN 06/19/18 11/28/19 History venlafaxine 150 mg PO QAM 06/19/18 11/28/19 History warfarin 5 mg PO SUTUWETHSA 06/19/18 11/28/19 History metoprolol tartrate 100 mg PO BID 09/14/18 11/28/19 History oxycodone 10 mg PO Q6H PRN 09/14/18 11/28/19 History trazodone 200 mg PO HS 09/14/18 11/28/19 History venlafaxine 75 mg PO QAM 09/14/18 11/28/19 History zolpidem 5 mg PO HS PRN 09/14/18 11/28/19 History loperamide [Imodium A-D] 2 mg PO Q6H PRN 03/01/19 11/28/19 History amitriptyline 50 mg PO HS 05/28/19 11/28/19 History amlodipine 10 mg PO QAM 05/28/19 11/28/19 History diclofenac sodium 2 g TOPICAL QID PRN 05/28/19 11/28/19 History gabapentin 800 mg PO BID 05/28/19 11/28/19 History lorazepam 1 mg PO TID 05/28/19 11/28/19 History albuterol sulfate 90 mcg/actuation 2 puffs INH Q6H PRN #18 gm 06/10/19 11/28/19 Rx aerosol inhaler alendronate 70 mg tablet 70 mg PO WE tab 06/10/19 11/28/19 History metformin 1,000 mg PO BID 07/13/19 11/28/19 History warfarin 7.5 mg PO MOFR 09/19/19 11/28/19 History Patient History Social History Preferred Language: Divehi Communication Ability: Effective Visual Impairment: No Limitations Billing Clerk Required: No Beliefs That Will Affect Care: Mosque Mosque Beliefs: YAZIDISM marital status: / Current Living Situation: Alone Other Information That Helps Us Care for You: No Feels Safe at Home: Yes Safety Concerns: Feels Safe At This Time Smoking Status: Current every day smoker Tobacco Type: cigarettes ; Cigarettes Per Day: 10 ; Second Hand Exposure: No ; Hx Alcohol Use: No Hx Substance Use: No Review of Systems Review of Systems: All systems reviewed & are unremarkable except as noted in HPI & below Physical Exam Physical Exam: Temp Pulse Resp BP Pulse Ox 36.8 C 66 20 117/67 96 11/28/19 12:00 11/28/19 13:04 11/28/19 13:04 11/28/19 12:00 11/28/19 13:04 Constitutional: WD/WN, vitals as above Respiratory: Mildly decreased breath sounds at the bases Cardiovascular: RRR, no murmur, no edema Vessels: no JVD Extremities: no edema Gastrointestinal (Abdomen): normal bowel sounds, soft, nontender, no hepatosplenomegaly Neurologic: PERRL, EOMI, accommodation nl, no face palsy, no dysarthria Results & Data ([facility]) Vital Signs (Past 12 Hours) Vital Signs Temp Pulse Pulse Resp BP BP Pulse Ox 11/28/19 13:04 66 20 96 11/28/19 12:00 36.8 C 64 20 117/67 98 11/28/19 08:00 78 11/28/19 07:49 76 20 96 11/28/19 07:29 37.2 C 78 78 20 151/58 H 93 11/28/19 06:30 78 25 H 137/83 95 11/28/19 06:00 76 24 138/52 L 95 11/28/19 05:30 78 23 129/30 L 94 11/28/19 05:00 76 22 109/55 L 94 11/28/19 04:34 87 17 95 11/28/19 04:30 85 20 106/83 91 11/28/19 04:00 82 19 160/59 H 95 11/28/19 03:36 37.4 C 96 H 20 166/66 H 90 Pulse Ox 11/28/19 13:04 11/28/19 12:00 11/28/19 08:00 93 11/28/19 07:49 11/28/19 07:29 93 11/28/19 06:30 11/28/19 06:00 11/28/19 05:30 11/28/19 05:00 03/15/20 04:34 11/28/19 04:30 11/28/19 04:00 11/28/19 03:36 Laboratory Results Cardiac Enzymes 11/28/19 Range/Units 04:10 AST 76 H (15-37) U/L Troponin I 0.039 (0-0.045) ng/ml Coagulation 11/28/19 11/28/19 Range/Units 04:10 04:52 PT Cancelled 25.1 H APTT Cancelled 46.0 H* CBC 11/28/19 Range/Units 04:10 WBC 7.61 (4.8-10.8) K/uL RBC 4.42 (4.2-5.4) M/uL Hgb 13.7 (12.0-16.0) g/dL Hct 41.1 (37-47) % Plt Count 182 (130-400) K/uL Neut # (Auto) 5.95 (1.4-6.5) K/uL Lymph # (Auto) 0.92 L (1.2-3.4) K/uL [place] # (Auto) 0.70 H (0.11-0.59) K/uL Eos # (Auto) 0.01 (0-0.5) K/uL Baso # (Auto) 0.01 (0-0.2) K/uL Comprehensive Metabolic Panel 11/28/19 Range/Units 04:10 Sodium 136 (136-145) mmol/L Potassium 4.4 (3.5-5.1) mmol/L Chloride 101 (98-107) mmol/L Carbon Dioxide 32 (21-32) mmol/L BUN 17 (7-18) mg/dl Creatinine 1.18 (0.6-1.2) mg/dl Glucose 107 H (70-99) mg/dl Calcium 8.7 (8.5-10.1) mg/dl AST 76 H (15-37) U/L ALT 107 H (12-78) U/L Alkaline Phosphatase 71 (45-117) U/L Total Protein 7.1 (6.4-8.2) gm/dl Albumin 2.7 L (3.4-5.0) gm/dl Intake and Output 11/27/19 11/28/19 11/28/19 22:59 06:59 14:59 Intake Total 360.5 / 360.5 Output Total 1601 / 1601 Balance -1240.5 / -1240.5 Intake: IV 160.5 / 160.5 Vibramycin 100 mg In D5 100 ml 110 / 110 @ 50 mls/hr IV NOW STA Rx#: [id number] Phenergan 12.5 mg In Nss 50 ml 50.5 / 50.5 @ 202 mls/hr IV Q6H PRN Rx#: [id number] Oral 200 / 200 Output: Urine Amount (Catheter) 1600 / 1600 Sinclair/Indwelling 1600 / 1600 # Bowel Movements Other: Weight 100.3 kg 95.6 kg Patient Weight 11/29/19 06:59 Weight 95.6 kg 4:52 AM: INR 2.5 PCR screen negative for influenza type A,B 11/28/19 Diagnostic Findings Summary of ttecho performed as an outpatient on 06/18/2019: Severe pulmonary hypertension is present. The estimated pulmonary artery systolic pressure is 76mm Hg. There is severe concentric increase in right ventricular wall thickness. There are one or more thin mobile densities attached to the aortic valve suggesting fibrous strands. 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 Aortic atherosclerosis is moderate. There is severe mitral annular calcification. Mild mitral stenosis is present. Significant mitral regurgitation is absent. The left ventricular cavity size is normal. The qualitative LV ejection fraction is 55-59% (normal). The left atrium is moderately enlarged. The right atrium is moderately enlarged. EKG performed 11/28/2019 at 10:04 AM revealed sinus rhythm with right bundle branch block and occasional PACs, stable findings, with chronic right bundle branch block. Medications Administered Current Inpatient Medications Acetaminophen (Tylenol) 325 mg PO Q6H PRN PRN Reason: Pain or Fever Stop: 12/28/19 07:28 Alendronate Sodium (Fosamax) 70 mg PO We@0630 JORGE Stop: 12/31/19 06:29 Amitriptyline HCl (Elavil) 50 mg PO [facility] Stop: 12/28/19 20:59 Amlodipine Besylate (Norvasc) 10 mg PO QA JORGE Stop: 12/28/19 08:59 Last Admin: 11/28/19 08:56 Dose: 10 mg Documented by: Atorvastatin Calcium (Lipitor) 40 mg PO [facility] Stop: 12/28/19 20:59 Cetirizine HCl (Zyrtec) 10 mg PO HS JORGE Stop: 12/28/19 20:59 Dextrose (Dextrose 50%) 25 - 50 ml IV UD PRN; Protocol PRN Reason: Hypoglycemia Protocol Stop: 12/28/19 07:28 Docusate Sodium (Colace) 100 mg PO DAILY PRN PRN Reason: Constipation Doxycycline Hyclate (Vibramycin) 100 mg PO BID JORGE Stop: 12/05/19 20:59 Fentanyl (Duragesic) 50 mcg TD Q72H JORGE Stop: 12/12/19 07:59 Last Admin: 11/28/19 09:03 Dose: 50 mcg Documented by: Furosemide (Lasix) 60 mg PO BID [facility] Stop: 12/28/19 08:59 Gabapentin (Neurontin) 800 mg PO BID JORGE Stop: 12/28/19 08:59 Last Admin: 11/28/19 08:56 Dose: 800 mg Documented by: Glucagon (Glucagen) 1 mg SQ UD PRN; Protocol PRN Reason: Hypoglycemia Protocol Stop: 12/28/19 07:28 Glucose (Dex4 Glucose) 4 - 8 tabs PO UD PRN; Protocol PRN Reason: Hypoglycemia Protocol Stop: 12/28/19 07:28 Glucose (Glucose 40%) 15 - 30 gm PO UD PRN; Protocol PRN Reason: Hypoglycemia Protocol Stop: 12/28/19 07:28 Promethazine HCl 12.5 mg/ (Sodium Chloride) 50.5 mls @ 202 mls/hr IV Q6H PRN PRN Reason: Nausea And Vomiting Stop: 12/28/19 07:28 Last Infusion: 11/28/19 12:36 Dose: Infused Documented by: Furosemide 40 mg/ Syringe 4 mls @ 4 mls/min IV BID17 JORGE Stop: 11/29/19 17:00 Insulin Aspart (Novolog Flexpen) 0 units SC ACHS JORGE Stop: 12/28/19 07:59 Last Admin: 11/28/19 11:58 Dose: 1 units Documented by: Insulin Glargine (Lantus Solostar Pen) 20 units SC BID JORGE Stop: 12/28/19 07:59 Last Admin: 11/28/19 08:57 Dose: 20 units Documented by: Ipratropium [place] (Atrovent 0.02% 0.5mg/2.5ml) 0.5 mg INH Q6R [facility] Stop: 12/28/19 07:59 Last Admin: 11/28/19 13:02 Dose: 0.5 mg Documented by: Levalbuterol HCl (Xopenex 1.25mg/0.5ml Neb) 1.25 mg INH Q6R [facility] Stop: 12/28/19 07:59 Last Admin: 11/28/19 13:02 Dose: 1.25 mg Documented by: Lorazepam (Ativan) 1 mg PO TID [facility] Stop: 12/28/19 08:59 Last Admin: 11/28/19 09:03 Dose: 1 mg Documented by: Methocarbamol (Robaxin) 750 mg PO TID PRN PRN Reason: Pain Stop: 12/28/19 07:28 Metoprolol Tartrate (Lopressor) 100 mg PO BID [facility] Stop: 12/28/19 08:59 Last Admin: 11/28/19 08:56 Dose: 100 mg Documented by: Miscellaneous (Fentanyl Patch Remove & Waste) 1 ea N/A Q3D [facility] Stop: 12/28/19 07:58 Last Admin: 11/28/19 08:57 Dose: 1 ea Documented by: Miscellaneous (Fentanyl Patch Check Placement) 1 ea N/A QS [facility] Stop: 12/28/19 15:59 Miscellaneous (Carbohydrates For Hypoglycemia) 15 - 30 gm PO UD PRN PRN Reason: Hypoglycemia Protocol Stop: 12/28/19 07:28 Miscellaneous (Remove Nicoderm Patch) 1 ea N/A DAILY@0859 [facility] Stop: 12/29/19 08:58 Multivitamins (Multivitamin Tab) 1 tab PO QAM [facility] Stop: 12/28/19 08:59 Last Admin: 11/28/19 08:57 Dose: 1 tab Documented by: Nicotine (Nicoderm Cq) 7 mg TD QAM [facility] Stop: 12/28/19 08:59 Last Admin: 11/28/19 08:58 Dose: 7 mg Documented by: Nitroglycerin (Nitrostat) 0.4 mg SL UD PRN PRN Reason: Chest Pain Stop: 12/28/19 07:28 Oxycodone HCl (Roxicodone Immediate Rel) 5 mg PO Q6H PRN PRN Reason: Pain Stop: 12/12/19 07:28 Potassium Chloride (Klor-Con M20) 20 meq PO DAILY JORGE Stop: 12/29/19 08:59 Prednisone (Prednisone) 20 mg PO DAILY JORGE Stop: 12/03/19 08:59 Trazodone HCl (Desyrel) 200 mg PO HS JORGE Stop: 12/28/19 20:59 Venlafaxine HCl (Effexor Extended Release) 225 mg PO QA JORGE Stop: 12/28/19 08:59 Last Admin: 11/28/19 08:57 Dose: 225 mg Documented by:
[2019-11-28] MEDS: WARFARIN SOD 5 MG TAB PO SCH (15:55)
[2019-11-28] MEDS: CHECK FENTANYL PATCH PLACEMENT SCH ×2 (15:56→23:27)
[2019-11-28] MEDS: FUROSEMIDE 40 MG in SYRINGE 0 ML IV SCH (17:35)
[2019-11-28] MEDS ORDERED: FUROSEMIDE 40 MG/4 ML VIAL IV SCH (20:00)
[2019-11-28] MEDS: TRAZODONE HCL 100 MG TAB PO SCH (21:32)
[2019-11-28] MEDS: ATORVASTATIN 40 MG TAB PO SCH (21:32)
[2019-11-28] MEDS: AMITRIPTYLINE HCL 50 MG TAB PO SCH (21:32)
[2019-11-28] MEDS: DOXYCYCLINE HYCLATE 100 MG CAP PO SCH (21:33)
[2019-11-28] MEDS: CETIRIZINE HCL 10 MG TABLET PO SCH (21:33)
[2019-11-29] MEDS: IPRATROPIUM BROMIDE NEB SOLN 0.02% 2.5 ML VIAL INH SCH ×4 (00:44→19:35)
[2019-11-29] MEDS: LEVALBUTEROL 1.25MG/0.5ML NEB INH SCH ×4 (00:44→19:35)
[2019-11-29 06:19] LABS: Basophils # (auto) 0.01 K/uL (0-0.2); Basophils % (auto) 0.1 %; Eosinophils % (auto) 1.3 %; Hematocrit (blood only) 38.2 % (37-47); Hemoglobin 12.6 g/dL (12.0-16.0); Immature Granulocytes # (auto) 0.01 K/uL (0.00-0.02); Immature Granulocytes % (auto) 0.1 %; Lymphocytes # (auto) 0.87 K/uL (1.2-3.4); Lymphocytes % (auto) 11.6 %; Mean Corpuscular Volume 93.9 fL (80-100); Mean Platelet Volume 10.2 fL (7.4-10.4); Monocytes # (auto) 0.64 K/uL (0.11-0.59); Monocytes % (auto) 8.5 %; Neutrophils % (auto) 78.4 %; Platelet Count 184 K/uL (130-400); RDW Coefficient of Variation 14.4 % (11.5-14.5); RDW Standard Deviation 49.1 fL (36.4-46.3); Red Blood Count 4.07 M/uL (4.2-5.4); White Blood Count 7.53 K/uL (4.8-10.8)
[2019-11-29 06:33] LABS: INR 2.3 (0.9-1.1)
[2019-11-29 06:59] LABS: BUN Creatinine Ratio 24.1 (10-20); Calcium 8.8 mg/dl (8.5-10.1); Est GFR (African American) 42.5; Est GFR (Non-African American) 36.7; Potassium 3.3 mmol/L (3.5-5.1)
[2019-11-29 07:40] LABS: Estimated Average Glucose 217 mg/dl; Hemoglobin A1C 9.2 % (4.5-5.6)
[2019-11-29] MEDS: INSULIN ASPART 100 UNITS/ML 3 ML PEN SC SCH ×4 (08:15→20:51)
[2019-11-29] MEDS: INSULIN GLARGINE SOLOSTAR 100 UNITS/ML 3 ML PEN SC SCH (08:15)
[2019-11-29] MEDS: LORazepam 1 MG TAB PO SCH ×3 (08:19→20:52)
[2019-11-29] MEDS: DOXYCYCLINE HYCLATE 100 MG CAP PO SCH ×2 (08:20→20:53)
[2019-11-29] MEDS: predniSONE 20 MG TAB PO SCH (08:20)
[2019-11-29] MEDS: GABAPENTIN 800 MG TAB PO SCH ×2 (08:20→20:52)
[2019-11-29] MEDS: METOPROLOL TARTRATE 100 MG TAB PO SCH ×2 (08:20→20:54)
[2019-11-29] MEDS: NICOTINE 7 MG/24 HR TDSY TD SCH (08:20)
[2019-11-29] MEDS: VENLAFAXINE HCL XR 75 MG CAPXR PO SCH (08:20)
[2019-11-29] MEDS: MULTIVITAMIN TAB PO SCH (08:20)
[2019-11-29] MEDS: AMLODIPINE BESYLATE 5 MG TAB PO SCH (08:20)
[2019-11-29] MEDS: CHECK FENTANYL PATCH PLACEMENT SCH ×3 (08:21→23:11)
[2019-11-29] MEDS: FUROSEMIDE 40 MG in SYRINGE 0 ML IV SCH ×2 (08:21→17:13)
[2019-11-29] MEDS: POTASSIUM CHLORIDE 20 MEQ TABCR PO SCH (10:24)
--- NOTE | 2019-11-29 12:57 | Cardiology Progress Note ---
Date of Service November 29, 2019 Assessment & Plan (1) Acute exacerbation of chronic obstructive pulmonary disease: (2) Diastolic CHF, chronic: Acute on chronic diastolic heart failure, longstanding history of Pulmonary hypertension, cor pulmonale physiology. 2.6 L of urine output noted on her suffering this morning. Potassium was low at 3.3, and I have ordered an additional 20 mEq of potassium chloride to the 20 mEq that was already ordered. She is due for another dose of furosemide 40 mg at 5 PM. She remains in sinus rhythm, INR therapeutic at 2.3 today. Continue current diuretic regimen. Patient believes she is feeling much improved, and feels that by tomorrow she will be back to her baseline. Subjective Chief complaint: Follow-up shortness of breath Subjective: Patient feeling improved today. Telemetry reveals sinus rhythm in the range of 70 bpm. Review of Systems Review of Systems: All systems reviewed & are unremarkable except as noted in HPI & below Physical Exam Physical Exam: Temp Pulse Resp BP Pulse Ox 37.5 C 76 18 121/70 98 11/29/19 11:04 11/29/19 11:04 11/29/19 11:04 11/29/19 11:04 11/29/19 11:04 Constitutional: WD/WN, vitals as above Respiratory: Mild inspiratory wheezing noted in the mid lung [place] Cardiovascular: RRR, no murmur, no edema Gastrointestinal (Abdomen): normal bowel sounds, soft, nontender, no hepatosplenomegaly Neurologic: PERRL, EOMI, accommodation nl, no face palsy, no dysarthria Results & Data Vital Signs (Past 12 Hours) Vital Signs Temp Pulse Pulse Resp BP Pulse Ox 11/29/19 11:04 37.5 C 76 18 121/70 98 11/29/19 08:00 71 11/29/19 07:25 36.5 C 75 20 127/69 95 11/29/19 07:07 73 20 97 11/29/19 03:47 36.9 C 66 18 118/68 93 11/29/19 03:20 65 22 93 Laboratory Results Coagulation 11/29/19 Range/Units 05:52 PT 23.0 H (9.0-12.0) Seconds CBC 11/29/19 Range/Units 05:52 WBC 7.53 (4.8-10.8) K/uL RBC 4.07 L (4.2-5.4) M/uL Hgb 12.6 (12.0-16.0) g/dL Hct 38.2 (37-47) % Plt Count 184 (130-400) K/uL Neut # (Auto) 5.90 (1.4-6.5) K/uL Lymph # (Auto) 0.87 L (1.2-3.4) K/uL [place] # (Auto) 0.64 H (0.11-0.59) K/uL Eos # (Auto) 0.10 (0-0.5) K/uL Baso # (Auto) 0.01 (0-0.2) K/uL Comprehensive Metabolic Panel 11/29/19 Range/Units 05:52 Sodium 139 (136-145) mmol/L Potassium 3.3 L D (3.5-5.1) mmol/L Chloride 103 (98-107) mmol/L Carbon Dioxide 31 (21-32) mmol/L BUN 36 H D (7-18) mg/dl Creatinine 1.50 H D (0.6-1.2) mg/dl Glucose 151 H (70-99) mg/dl Calcium 8.8 (8.5-10.1) mg/dl Intake and Output 11/28/19 11/29/19 11/29/19 22:59 06:59 14:59 Output Total 500 / 2601 Balance -500 / -1940.5 Output: Urine Amount (Catheter) 500 / 2600 Sinclair/Indwelling 500 / 2600 Other: Other Intake Source ice chips Weight 95.4 kg
[2019-11-29] MEDS ORDERED: POTASSIUM CHLORIDE 20 MEQ TABCR PO ONE (13:45)
[2019-11-29] MEDS: WARFARIN SOD 5 MG TAB PO SCH (17:23)
--- NOTE | 2019-11-29 19:14 | Hospitalist Progress Note ---
Date of Service November 29, 2019 Assessment & Plan (1) Respiratory failure, acute and chronic: Acute on chronic respiratory failure Presented on admission with worsening SOB associated with productive cough Possible related to COPD exacerbation, Bronchitis and CHF exacerbation CXR showed congestive failure. Afebrile and no Leukocytosis On IV lasix BID, place on hold for elevating creatinine to 1.5 Received IV solumedrol in the ER Continue Prednisone 20mg Received IV doxycycline, then transition to PO doxy Continue neb treatment will transition to oral lasix Clinically improves significantly Acute Diastolic CHF ProBNP 1888 Continue IV lasix BID Cardiology on board IV lasix held this morning due to elevate creatinine Continue metoprolol COPD exacerbation Possible related to bronchitis Received IV solumedrol and Doxy Continue Prednisone, doxy and neb treatment Continue oxygen supplement Diabetes type 2 A1c 9.2 on 11/29/19 Continue Lantus 20mg BID On Novolog sliding scale CKD 3 Creatinine fluctuated with baseline btw 1.3 to 1.6 Creatinine bumped to 1.5 today (creat was 1.1 yesterday was due to volume overload ) Lasix was held this morning, will resume to give the PM dose Continue monitor BMP Afib rate controlled Continue Metoprolol and coumadin with INR therapeutic Continue monitor DVT px on Coumadin with INR therapeutic CODE STATUS FULL CODE Admission and Anticipated Discharge Date Admission Date: November 28, 2019 Subjective Pt was seen and examined Lying in bed with no distress Pt said that her breathing feels much better today She said that she almost feels back to her baseline She said that her cough improves Denies any chest pain, palpitation and fever Physical Exam Physical Exam: General- No acute distress Head- atraumatic Eyes- PERRL, EOMI, ENT- oropharynx clear Neck- supple, no JVD Lungs- +mild wheezing Heart- regular rhythm; no murmur Abdomen- normal bowel sounds, soft, nontender Extremities- no calf tenderness Neuro- alert, oriented x 3; PERRL, EOMI; no facial palsy; no dysarthria Skin- warm & dry Results & Data ([facility]) Vital Signs (Past 12 Hours) Vital Signs Temp Pulse Pulse Resp BP Pulse Ox 11/29/19 16:09 37.3 C 73 20 130/73 96 11/29/19 15:39 74 11/29/19 13:27 83 24 96 11/29/19 11:04 37.5 C 76 18 121/70 98 11/29/19 08:00 71 11/29/19 07:25 36.5 C 75 20 127/69 95
[2019-11-29] MEDS ORDERED: INSULIN GLARGINE SOLOSTAR 100 UNITS/ML 3 ML PEN SC STA (20:38)
[2019-11-29] MEDS: ATORVASTATIN 40 MG TAB PO SCH (20:53)
[2019-11-29] MEDS: AMITRIPTYLINE HCL 50 MG TAB PO SCH (20:53)
[2019-11-29] MEDS: TRAZODONE HCL 100 MG TAB PO SCH (20:53)
[2019-11-29] MEDS: CETIRIZINE HCL 10 MG TABLET PO SCH (20:53)
--- NOTE | 2019-11-29 22:17 | Electrocardiogram Report ---
Test Reason : Blood Pressure : / mmHG Vent. Rate : 084 BPM Atrial Rate : 084 BPM P-R Int : 176 ms QRS Dur : 134 ms QT Int : 400 ms P-R-T Axes : 080 094 017 degrees QTc Int : 472 ms Sinus rhythm with Premature atrial complexes Possible Left atrial enlargement Right bundle branch block Abnormal ECG When compared with ECG of 19-SEP-2019 09:02, Premature atrial complexes are now Present Confirmed by Scott Judge ([id number] on 11/29/2019 10:17:04 PM Referred By: REFERRED SELF Confirmed By:Scott Judge
--- NOTE | 2019-11-29 22:36 | Electrocardiogram Report ---
Test Reason : Blood Pressure : / mmHG Vent. Rate : 066 BPM Atrial Rate : 066 BPM P-R Int : 190 ms QRS Dur : 146 ms QT Int : 490 ms P-R-T Axes : 075 095 029 degrees QTc Int : 513 ms Sinus rhythm with Premature atrial complexes Right bundle branch block Abnormal ECG When compared with ECG of 28-NOV-2019 03:54, T wave inversion less evident in Anterior leads Confirmed by Scott Judge ([id number] on 11/29/2019 10:36:15 PM Referred By: REFERRED SELF Confirmed By:Scott Judge
[2019-11-30] MEDS: IPRATROPIUM BROMIDE NEB SOLN 0.02% 2.5 ML VIAL INH SCH ×3 (00:10→13:17)
[2019-11-30] MEDS: LEVALBUTEROL 1.25MG/0.5ML NEB INH SCH ×3 (00:10→13:18)
[2019-11-30 06:42] LABS: INR 2.7 (0.9-1.1); Prothrombin Time 26.7 Seconds (9.0-12.0)
[2019-11-30 07:02] LABS: BUN Creatinine Ratio 27.1 (10-20); Calcium 8.9 mg/dl (8.5-10.1); Creatinine Clr Calc Pharmacy 54.6 ml/min; Est GFR (African American) 56.8; Potassium 3.7 mmol/L (3.5-5.1)
[2019-11-30] MEDS: INSULIN ASPART 100 UNITS/ML 3 ML PEN SC SCH ×3 (08:00→16:58)
[2019-11-30] MEDS ORDERED: INSULIN GLARGINE SOLOSTAR 100 UNITS/ML 3 ML PEN SC SCH (09:00)
[2019-11-30] MEDS: MULTIVITAMIN TAB PO SCH (09:51)
[2019-11-30] MEDS: VENLAFAXINE HCL XR 75 MG CAPXR PO SCH (09:52)
[2019-11-30] MEDS: predniSONE 20 MG TAB PO SCH (09:53)
[2019-11-30] MEDS: NICOTINE 7 MG/24 HR TDSY TD SCH (09:53)
[2019-11-30] MEDS: AMLODIPINE BESYLATE 5 MG TAB PO SCH (09:53)
[2019-11-30] MEDS: METOPROLOL TARTRATE 100 MG TAB PO SCH (09:53)
[2019-11-30] MEDS: CHECK FENTANYL PATCH PLACEMENT SCH ×2 (09:54→16:18)
[2019-11-30] MEDS: DOXYCYCLINE HYCLATE 100 MG CAP PO SCH (09:59)
[2019-11-30] MEDS: GABAPENTIN 800 MG TAB PO SCH (09:59)
[2019-11-30] MEDS: LORazepam 1 MG TAB PO SCH ×2 (09:59→14:06)
[2019-11-30] MEDS: POTASSIUM CHLORIDE 20 MEQ TABCR PO SCH (10:00)
[2019-11-30] MEDS ORDERED: FUROSEMIDE 40 MG in SYRINGE 0 ML IV ONE (13:30)
--- NOTE | 2019-11-30 16:16 | Hospitalist Progress Note ---
Date of Service November 30, 2019 Assessment & Plan (1) Respiratory failure, acute and chronic: Acute on chronic respiratory failure Presented on admission with worsening SOB associated with productive cough Possible related to COPD exacerbation, Bronchitis and CHF exacerbation CXR showed congestive failure. Afebrile and no Leukocytosis IV lasix 40mg IV given today Received IV solumedrol in the ER Continue Prednisone 20mg Received IV doxycycline, then transition to PO doxy Continue neb treatment Clinically improves significantly Acute Diastolic CHF ProBNP 1888 Lasix 40mg IV given this morning Cardiology on board Creatinine improved to 1.1 Will transition to oral lasix 60mg BID outpatient dose Continue metoprolol COPD exacerbation Possible related to bronchitis Received IV solumedrol and Doxy Continue Prednisone, doxy and neb treatment Continue oxygen supplement Diabetes type 2 A1c 9.2 on 11/29/19 Continue Lantus 20mg BID On Novolog sliding scale CKD 3 Creatinine fluctuated with baseline btw 1.3 to 1.6 Creatinine improved to 1.1 today Lasix 40mg IV x1 given today Continue monitor BMP Afib rate controlled Continue Metoprolol and coumadin with INR therapeutic Continue monitor DVT px on Coumadin with INR therapeutic CODE STATUS FULL CODE Disposition Will discharge home today Admission and Anticipated Discharge Date Admission Date: November 28, 2019 Subjective Pt was seen and examined Lying in bed with no distress Pt said that she feels much better She said that her breathing is much better Denies any chest pain, palpitation, dizziness and SOB Physical Exam Physical Exam: General- No acute distress Head- atraumatic Eyes- PERRL, EOMI, ENT- oropharynx clear Neck- supple, no JVD Lungs- +faint wheezing Heart- regular rhythm; no murmur Abdomen- normal bowel sounds, soft, nontender Extremities- no calf tenderness Neuro- alert, oriented x 3; PERRL, EOMI; no facial palsy; no dysarthria Skin- warm & dry Results & Data ([facility]) Vital Signs (Past 12 Hours) Vital Signs Temp Pulse Pulse Resp BP Pulse Ox 11/30/19 15:56 36.7 C 74 20 144/83 H 98 11/30/19 15:00 66 11/30/19 13:18 79 16 98 11/30/19 11:30 36.4 C L 66 20 152/81 H 99 11/30/19 07:30 36.8 C 62 68 22 154/83 H 99 11/30/19 07:29 67 18 99
[2019-11-30] MEDS: WARFARIN SOD 5 MG TAB PO SCH (16:18)
[2019-12-01] MEDS ORDERED: ALENDRONATE SODIUM 70 MG TAB PO SCH (06:30)
--- NOTE | 2019-12-02 21:41 | Discharge Summary ---
Date of Service November 30, 2019 Admission HPI Per Admitting Provider History obtained from patient and records. Medical history is significant for chronic diastolic heart failure, EF of 55-59% (TTE 2019), atrial flutter status post ablation on Coumadin, cardiac fibroblastoma status p ost surgery, HTN chronic respiratory failure secondary to COPD on home O2, DARIUS on BIPAP, history of pulmonary hypertension, ongoing tobacco abuse, hx CVA as per records, chronic pain on narcotics, DM2 insulin requiring, gastroparesis per records, anxiety/mood disorder. Recent confinement October 2018 for CHF 2 to rapid A. fib. sp post cardioversion. 2 days history of cough symptoms productive of junky sputum and worsening shortness of breath without chest pain. Unquantified weight gain as per patient despite compliance with home diuretic regimen and fluid restriction as per patient. At the ER, patient received Solu-Medrol and neb treatment for COPD exacerbation. MEDICAL HISTORY: As above. SURGERIES: She has had hysterectomy, appendectomy, cholecystectomy, lumpectomy, mitral valve repair, tubal ligation, umbilical hernia repair, carpal tunnel surgery, Ear surgery, section, FAMILY HISTORY: Heart disease. IBD, diabetes PERSONAL AND SOCIAL HISTORY: Eight cigarettes a day, disabled, no chronic intake of alcoholic beverages. Admission Exam Per Admitting Provider GENERAL: Comfortable, obese , min respiratory distress SKIN: Normal color, warm HEENT: [place] palpebral conjunctivae, no ptosis, dry buccal mucosa, nasal cannula in place NECK : Supple, short neck, no tenderness CHEST : Decreased breath sounds, expiratory wheezes , no tenderness HEART : RRR, no obvious murmurs ABDOMEN: Some distention, nontender EXTREMITIES : Chronic LE venous stasis without tenderness, no other conspicuous deformities noted NEUROLOGIC : Coherent, no facial asymmetry, no other gross focality Principal Diagnosis Acute on chronic respiratory failure Acute Diastolic Congestive heart failure COPD exacerbation Diabetes type 2 Chronic Kidney Disease stage 3 Atrial fibrillation Discharge Exam General- No acute distress Head- atraumatic Eyes- PERRL, EOMI, ENT- oropharynx clear Neck- supple, no JVD Lungs- +faint wheezing Heart- regular rhythm; no murmur Abdomen- normal bowel sounds, soft, nontender Extremities- no calf tenderness Neuro- alert, oriented x 3; PERRL, EOMI; no facial palsy; no dysarthria Skin- warm & dry Discharge Data Allergies Allergy/AdvReac Type Severity Reaction Status Date / Time bee venom protein (honey bee) Allergy Severe SWELLING Verified 11/28/19 04:25 lisinopril Allergy Intermediate FACE Verified 11/28/19 04:25 SWELLING potato Allergy Intermediate BBQ chips Verified 11/28/19 04:25 - facial swelling metronidazole Allergy Mild FACE Verified 11/28/19 04:25 SWELLING strawberry Allergy Mild HIVES Verified 11/28/19 04:25 alprazolam Allergy Unknown RED FACE, Verified 11/28/19 04:25 FACE SWELLING lactose AdvReac Intermediate VOMTING Verified 11/28/19 04:25 DIARRHEA ABDOMINAL PAIN-LACTOSE INTOLERANCE prednisone AdvReac Mild AGGRESSIVE Verified 11/28/19 04:25 BEHAVIOR colesevelam AdvReac Unknown unknown Verified 11/28/19 04:25 lithium AdvReac Unknown jitters Verified 11/28/19 04:25 Consultations 11/28/19 05:38 ED Decision to Admit Stat 11/28/19 07:29 Consult Cardiology Routine Consult Case Management - Discharge Planning Routine Ordered Studies XR chest 1V portable CLINICAL HISTORY: SEPSIS COMPARISON STUDY: 09/19/2019 FINDINGS: The heart remains enlarged. Valvular prosthesis is visualized. There is diffuse elevation of interstitium consistent with congestive failure/fluid overload. There is a cyst a small right lateral lung hernia. Surgical clips project over the right upper chest wall. IMPRESSION: Stable interstitial thickening consistent with congestive failure. Persistent small right lung hernia. ACT 112: Negative or not required by law. Electronically signed by: Cesar Lopez M.D. 11/28/2019 7:19 AM Dictated: 11/28/19 0718 Transcribed: 11/28/19 0718 Hospital Course (1) Respiratory failure, acute and chronic: Acute on chronic respiratory failure Presented on admission with worsening SOB associated with productive cough Possible related to COPD exacerbation, Bronchitis and CHF exacerbation CXR showed congestive failure. Afebrile and no Leukocytosis IV lasix 40mg IV given today Received IV solumedrol in the ER Continue Prednisone 20mg Received IV doxycycline, then transition to PO doxy Continue neb treatment Clinically improves significantly Acute Diastolic CHF ProBNP 1888 Lasix 40mg IV given this morning Cardiology on board Creatinine improved to 1.1 Will transition to oral lasix 60mg BID outpatient dose Continue metoprolol COPD exacerbation Possible related to bronchitis Received IV solumedrol and Doxy Continue Prednisone, doxy and neb treatment Continue oxygen supplement Diabetes type 2 A1c 9.2 on 11/29/19 Continue Lantus 20mg BID On Novolog sliding scale CKD 3 Creatinine fluctuated with baseline btw 1.3 to 1.6 Creatinine improved to 1.1 today Lasix 40mg IV x1 given today Continue monitor BMP Afib rate controlled Continue Metoprolol and coumadin with INR therapeutic Continue monitor DVT px on Coumadin with INR therapeutic CODE STATUS FULL CODE Disposition Will discharge home today Total Time Total Time Spent Total Time Spent (In Minutes): 35 minutes Total Time Includes: Examination of the Patient, Discharge Planning, Medication Reconciliation, Communication With Other Providers and Other Discharge Plan Discharge Items Patient Disposition: Home - Self-Care Reason For Visit: RESP FAILURE Discharge Diagnosis: Acute on chronic respiratory failure Acute Diastolic Congestive heart failure COPD exacerbation Diabetes type 2 Chronic Kidney Disease stage 3 Atrial fibrillation Activity: Resume your previous activity Non-emergency contact: Primary Care Provider and Die Drawing Checker Call non-emergency contact if: you have any medication questions Follow-up/Referrals: Manoj Goins, [Primary Care Provider] - 12/08/19 11:00 am Diet: Carb Consistent or DM2 and Heart Healthy Addtl Attending Provider Instructions: Follow up with your primary care provider Dr. Goins within 1 week Follow up with your cardiology Follow up with the Coumadin clinic to check your PT/INR (INR today 2.7) Monitor your blood sugar and bring your blood sugar log at your next appointment with your physician Continue oxygen supplement Counseling on smoking cessation Check BMP in 1 week to monitor your electrolytes and kidney function (Your physician will order it ) Lantus increased to 18 unit twice a day Please do not drive or operate any machine while on narcotic (Please hold the next dose of narcotic if you become drowsy and lethargy) CHF Discharge Instructions Call your Primary Care doctor if any of the following symptoms or problems start or get worse: Shortness of breath or difficulty breathing Wake up at night short of breath Chest pain Cough Swelling of your hands, feet, or legs More fatigued or tired with your normal activity Palpitations - sudden fast heart beats WEIGHT Weigh yourself every morning after using the bathroom. Use the same scale. Wear the same amount of clothing. Write your weight down on a chart. Call your Primary Care doctor if you gain more than 2-3 pounds in 1-2 days. MEDICATIONS Use this discharge instruction sheet for medication instructions. Take your medications at the time your doctor ordered. Do not skip a dose of your medicines. If you miss a dose of medicine, take it as soon as possible, but DO NOT DOUBLE A DOSE. Read your medicine information when you get home. Know all of the side effects of your medicine. If in doubt, ask your pharmacist Call your Primary Care doctor's office if you have any side effects. Be sure all of your doctors know what medicine and herbs you take (including cold, flu, and herbal medicine). Take the following with you to your follow-up doctor appointments: Weight Chart Medication List List of questions Do not drink excessive alcohol, beer or wine. Pending Studies at Discharge: No Stand-Alone Forms: My [facility] [employer], Smoking Cessation Medications and DC Order Prescriptions: New prednisone 10 mg tablet 10 mg PO DAILY Qty: 3 RF: 0 potassium chloride 10 mEq tablet extended release 10 meq PO DAILY Qty: 30 RF: 0 Continued albuterol sulfate [Proventil HFA] 90 mcg/actuation HFA aerosol inhaler 2 puffs INH Q6H PRN (Reason: shortness of breath or wheezing) Qty: 18 RF: 3 loperamide [Imodium A-D] 1 mg/7.5 mL Liquid 2 mg PO Q6H PRN (Reason: Diarrhea) RF: 0 amitriptyline 50 mg Tablet 50 mg PO HS RF: 0 gabapentin 800 mg Tablet 800 mg PO BID RF: 0 amlodipine 10 mg Tablet 10 mg PO QAM RF: 0 lorazepam 1 mg Tablet 1 mg PO TID RF: 0 diclofenac sodium 1 % Gel 2 g TOPICAL QID PRN (Reason: Pain) RF: 0 alendronate 70 mg tablet 70 mg PO WE RF: 0 metformin 1,000 mg Tablet 1,000 mg PO BID RF: 0 warfarin 5 mg tablet 7.5 mg PO MOFR RF: 0 multivitamin Tablet 1 tab PO QAM RF: 0 furosemide 40 mg Tablet 60 mg PO BID RF: 0 atorvastatin 40 mg Tablet 40 mg PO HS RF: 0 fentanyl [Duragesic] 50 mcg/hr Patch 72 Hour 1 patch TRANSDERMAL Q72H RF: 0 cetirizine 10 mg Tablet 10 mg PO HS RF: 0 venlafaxine 150 mg Capsule,Extended Release 24hr 150 mg PO QAM RF: 0 ondansetron 8 mg Tablet,Disintegrating 8 mg PO BID PRN (Reason: Nausea) RF: 0 methocarbamol 750 mg Tablet 750 mg PO TID PRN (Reason: Pain) RF: 0 calcitriol 0.5 mcg Capsule 0.5 mcg PO QAM RF: 0 warfarin 5 mg Tablet 5 mg PO SUTUWETHSA RF: 0 epinephrine [EpiPen] 0.3 mg/0.3 mL Auto-Injector 0.3 mg IM Q3H PRN (Reason: Allergic Reaction) RF: 0 docusate sodium 100 mg Tablet 100 mg PO DAILY PRN (Reason: Constipation) RF: 0 Spiriva with HandiHaler 18 mcg Capsule, W/Inhalation Device 1 cap INHALATION QAM RF: 0 albuterol sulfate 2.5 mg/0.5 mL Solution For Nebulization 2.5 mg INHALATION Q6 PRN (Reason: Wheezing) RF: 0 cholecalciferol (vitamin D3) [Vitamin D3] 1,000 unit Tablet 1,000 unit PO QAM RF: 0 venlafaxine 75 mg Capsule,Extended Release 24hr 75 mg PO QAM RF: 0 trazodone 100 mg Tablet 200 mg PO HS RF: 0 metoprolol tartrate 50 mg Tablet 100 mg PO BID RF: 0 zolpidem 5 mg Tablet 5 mg PO HS PRN (Reason: Insomnia) RF: 0 oxycodone 5 mg Tablet 10 mg PO Q6H PRN (Reason: Pain) RF: 0 Changed Lantus U-100 Insulin 100 unit/mL Solution 18 unit SUBCUT BID Qty: 0 RF: 0 Discharge Orders: Discharge Order (Routine); Ordered 11/30/19 Ordered By: Elise Hollins/Other Patient Handouts: Diabetes Technical Architect Complications, Diabetes Type 2 Managing, Diabetes Healthy Meals, Diabetes Exercise Benefits, Diabetes Living Life, Diabetes Manage A1C Test Admission Data Admit Date/Time: 11/28/19 06:47 Attending Provider: Elise Guillaume Admit Provider: Jn Burns Primary Care Provider: Manoj Goins Other Providers: Jn Burns ; [place] Underwood Other Interventions: Discharge Summary Assessment (RN) Last Done: 11/30/19 17:05 DC Date/Time DO NOT enter until pt leaves facility: 11/30/19 17:34
== END 2019-11-30 17:34 | disposition home or self-care (01) | DRG 291 ==
LOC: ED 03:48 → 1E 06:47 → 2S 17:17

== ENCOUNTER 2020-03-02 00:52 | Inpatient (IN) ==
[2020-03-02] MEDS ORDERED: STAT IV Infusion **Titration per Protocol STA (01:02)
--- NOTE | 2020-03-02 01:09 | Emergency Department Note ---
History of Present Illness General Chief complaint: Chest Pain Stated complaint: CHEST PAIN Time Seen by Provider: 03/02/20 00:59 Source: patient and EMS Mode of arrival: EMS Limitations: no limitations History of Present Illness Provider complaint: cp, sob, rapid HR Onset (ago): hour(s) Severity: similar to prior episodes Associated symptoms: + chest pain, + diaphoresis and + shortness of breath; no fever/chills, no loss of appetite, no nausea/vomiting and no syncope This is a 64-year-old patient who presents via EMS from home with complaints of chest pain, diaphoresis, and shortness of breath. Patient states symptoms started this evening. Upon EMS arrival, they also noted that the patient appeared to have a rapid heart rate. They performed an EKG which showed the patient in atrial fibrillation and first EKG showed a rate of 171. They state patient does have a history of dysrhythmia and is on anticoagulation. I gave the electrical estimator orders prehospital for 20 mg of Cardizem IV. By the time of arrival, patient's heart rate was improved into the 130s and she reported near complete resolution of all of her symptoms. Patient is unsure the last time she had atrial fibrillation and is unsure if it is chronic or paroxysmal. Patient states she has previously been cardioverted. Patient states she does follow with cardiology, Javan Maravilla PA-C locally, and has previously been hospitalized for cardiac issues. Patient denies any recent change in medications. Patient states she was seen by staff from home instead and started on a medication for a yeast infection recently. Patient denies any recent illness, fevers or chills. Patient does wear oxygen chronically at home at 3 L/min. Pt seen during a time of high acuity and national emergency pandemic while wearing PPE. Home Medications Home Medications Medication Instructions Recorded Confirmed Type Spiriva with HandiHaler 1 cap INHALATION QAM 06/19/18 03/02/20 History atorvastatin 40 mg PO HS 06/19/18 03/02/20 History calcitriol 0.5 mcg PO QAM 06/19/18 03/02/20 History cetirizine 10 mg PO HS 06/19/18 03/02/20 History cholecalciferol (vitamin D3) 1,000 unit PO QAM 06/19/18 03/02/20 History [Vitamin D3] docusate sodium 100 mg PO DAILY PRN 06/19/18 03/02/20 History epinephrine [EpiPen] 0.3 mg IM Q3H PRN 06/19/18 03/02/20 History fentanyl [Duragesic] 1 patch TRANSDERMAL Q72H 06/19/18 03/02/20 History furosemide 80 mg PO BID 06/19/18 03/02/20 History methocarbamol 750 mg PO TID 06/19/18 03/02/20 History multivitamin 1 tab PO QAM 06/19/18 03/02/20 History ondansetron 8 mg PO BID PRN 06/19/18 03/02/20 History venlafaxine 150 mg PO QAM 06/19/18 03/02/20 History warfarin 5 mg PO SUTUWETHSA 06/19/18 03/02/20 History oxycodone 10 mg PO Q6H PRN 09/14/18 03/02/20 History trazodone 200 mg PO HS 09/14/18 03/02/20 History venlafaxine 75 mg PO QAM 09/14/18 03/02/20 History zolpidem 5 mg PO HS PRN 09/14/18 03/02/20 History amitriptyline 50 mg PO HS 05/28/19 03/02/20 History amlodipine 10 mg PO QAM 05/28/19 03/02/20 History diclofenac sodium 2 g TOPICAL QID PRN 05/28/19 03/02/20 History gabapentin 800 mg PO BID 05/28/19 03/02/20 History albuterol sulfate 90 mcg/actuation 2 puffs INH Q6H PRN #18 gm 06/10/19 03/02/20 Rx aerosol inhaler alendronate 70 mg tablet 70 mg PO WE tab 06/10/19 03/02/20 History warfarin 7.5 mg PO MOFR 09/19/19 03/02/20 History Lantus U-100 Insulin 16 unit SUBCUT BID 03/02/20 03/02/20 History diltiazem HCl 120 mg PO QAM 03/02/20 03/02/20 History doxycycline hyclate 100 mg PO BID 03/02/20 03/02/20 History magnesium oxide 400 mg PO BID #14 tab 03/02/20 Rx metoprolol tartrate 100 mg PO BID #120 tab 03/02/20 Rx pantoprazole 40 mg PO DAILY 03/02/20 03/02/20 History potassium chloride 10 meq PO TID 03/02/20 03/02/20 History Allergies Allergy/AdvReac Type Severity Reaction Status Date / Time bee venom protein (honey bee) Allergy Severe SWELLING Verified 03/02/20 01:44 lisinopril Allergy Intermediate FACE Verified 03/02/20 01:44 SWELLING potato Allergy Intermediate BBQ chips Verified 03/02/20 01:44 - facial swelling metronidazole Allergy Mild FACE Verified 03/02/20 01:44 SWELLING strawberry Allergy Mild HIVES Verified 03/02/20 01:44 alprazolam Allergy Unknown RED FACE, Verified 03/02/20 01:44 FACE SWELLING lactose AdvReac Intermediate VOMTING Verified 03/02/20 01:44 DIARRHEA ABDOMINAL PAIN-LACTOSE INTOLERANCE prednisone AdvReac Mild AGGRESSIVE Verified 03/02/20 01:44 BEHAVIOR colesevelam AdvReac Unknown unknown Verified 03/02/20 01:44 lithium AdvReac Unknown jitters Verified 03/02/20 01:44 Past Med/Surg History Medical History Acute renal failure (Resolved) Anemia (Resolved) remote hx blood transfusion (5+ years ago)= no definitive etiology Anxiety (Chronic) Asthma (Chronic) 3LPM via n/c mostly continuous (although patient states she does not wear this all the time) Atrial fibrillation (Chronic) a. fib/a. flutter s/p cardioversion (2017) Atrial fibrillation with RVR (Resolved) Lynn esophagus (Chronic) Bipolar disorder (Chronic) Chronic back pain (Chronic) Chronic cor pulmonale (Chronic) Chronic kidney disease (Chronic) stage III Chronic obstructive pulmonary disease 3LPM via n/c mostly continuous (although patient states she does not wear this all the time) Chronic respiratory failure CVA (cerebral vascular accident) 2004 (per records; patient denies) Degeneration of cervical intervertebral disc (Chronic) Depression (Chronic) Diastolic CHF, chronic (Chronic) DM type 2 (diabetes mellitus, type 2) (Chronic) Elevated troponin (Resolved) Fibromyalgia (Chronic) Gastroparesis (Chronic) GERD (gastroesophageal reflux disease) (Chronic) History of Clostridium difficile infection (Resolved) History of DVT (deep vein thrombosis) (Resolved) left "hand" 2005- on AC HTN (hypertension) (Chronic) Hyperlipidemia (Chronic) Hyponatremia (Chronic) Hypothyroidism (Chronic) Insomnia (Chronic) Liver lesion (Chronic) Migraine (Chronic) Mitral stenosis (Chronic) 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 Nocturnal hypoxemia Obesity (Chronic) Obstructive sleep apnea treated with BiPAP (Chronic) Osteoarthritis (Chronic) Post traumatic stress disorder (Chronic) Surgical History H/O: hysterectomy (Resolved) History of adenoidectomy (Resolved) History of appendectomy (Resolved) LAPAROSCOPY History of cardiac cath (Resolved) 2004= no stents History of cataract surgery (Resolved) BILATERAL History of cholecystectomy (Resolved) LAPAROSCOPY History of colonoscopy (Resolved) History of esophagogastroduodenoscopy (EGD) (Resolved) History of herniorrhaphy (Resolved) UMBILICAL History of hysterectomy (Resolved) EMIGDIO WITH BSO History of mitral valve repair (Resolved) 2004 + resection fibroelastoma History of tonsillectomy (Resolved) Hx of appendectomy (Resolved) Hx of lumpectomy (Resolved) right breast BENIGN Hx of tubal ligation (Resolved) Hx of umbilical hernia repair (Resolved) S/P trigger finger release (Resolved) RIGHT/LEFT Family History Mother Family history of diabetes mellitus Sister Family history of diabetes mellitus Social History Preferred Language: Togolese Communication Ability: Effective Visual Impairment: No Limitations Card Puncher Required: No Beliefs That Will Affect Care: None marital status: / Current Living Situation: Alone Current Living Situation Comment: caregiver helps Feels Safe at Home: Yes Safety Concerns: Feels Safe At This Time Smoking Status: Current every day smoker Tobacco Type: cigarettes ; Cigarettes Per Day: 10 ; Second Hand Exposure: No ; Hx Alcohol Use: No Hx Substance Use: No Review of Systems See HPI for pertinent positives & negatives. and A total of 10 systems reviewed and were otherwise negative Physical Exam Vital Signs Vital Signs - 24 hr 03/02/20 00:57 03/02/20 01:13 03/02/20 01:22 Temperature 36.7 C Temperature Source Oral Pulse Rate 141 H Pulse Rate [Right Finger] 155 H Pulse Rhythm Irregular Pulse Rhythm [Right Finger] Irregular Respiratory Rate 18 18 Respiratory Effort / Characteristics Non-Labored Respiratory Depth Normal Blood Pressure 122/109 H Blood Pressure [Right Arm] 112/71 Blood Pressure Mean 113 Blood Pressure Mean [Right Arm] 84 Blood Pressure Position Lying Blood Pressure Position [Right Arm] Lying Pulse Oximetry 97 97 98 Oxygen Delivery Method Nasal Cannula Nasal Cannula Nasal Cannula Oxygen Flow Rate 3 3 3 Sepsis Recent Fever Within 48 Hours No Sepsis New/Unexplained Change in Mental Status No Sepsis Action Taken by Nursing No Action Required 03/02/20 01:35 03/02/20 01:45 03/02/20 01:55 Temperature Temperature Source Pulse Rate Pulse Rate [Right Finger] 138 H 140 H 129 H Pulse Rhythm Pulse Rhythm [Right Finger] Irregular Respiratory Rate 18 18 18 Respiratory Effort / Characteristics Respiratory Depth Blood Pressure Blood Pressure [Right Arm] 84/45 L 125/90 109/86 Blood Pressure Mean Blood Pressure Mean [Right Arm] 58 101 93 Blood Pressure Position Blood Pressure Position [Right Arm] Lying Lying Pulse Oximetry 98 97 98 Oxygen Delivery Method Nasal Cannula Nasal Cannula Nasal Cannula Oxygen Flow Rate 3 3 3 Sepsis Recent Fever Within 48 Hours Sepsis New/Unexplained Change in Mental Status Sepsis Action Taken by Nursing 03/02/20 02:02 03/02/20 02:20 Temperature Temperature Source Pulse Rate Pulse Rate [Right Finger] 140 H 138 H Pulse Rhythm Pulse Rhythm [Right Finger] Irregular Respiratory Rate 18 18 Respiratory Effort / Characteristics Respiratory Depth Normal Normal Blood Pressure Blood Pressure [Right Arm] 134/97 121/110 H Blood Pressure Mean Blood Pressure Mean [Right Arm] 109 113 Blood Pressure Position Blood Pressure Position [Right Arm] Lying Lying Pulse Oximetry 97 98 Oxygen Delivery Method Nasal Cannula Nasal Cannula Oxygen Flow Rate 3 2 Sepsis Recent Fever Within 48 Hours Sepsis New/Unexplained Change in Mental Status Sepsis Action Taken by Nursing GENERAL: alert, well appearing, well nourished, no distress, non-toxic EYE EXAM: normal conjunctiva, PERRL and EOM's grossly intact OROPHARYNX: no exudate, no erythema, lips, buccal mucosa, and tongue normal and mucous membranes are moist NECK: supple, no nuchal rigidity, no adenopathy, non-tender LUNGS: Clear to auscultation. Normal chest wall mechanics, no w/r/r HEART: no murmurs, S1 normal and S2 normal, satellite project site monitor reveals atrial fibrillation at a rate of 137 ABDOMEN: abdomen soft, non-tender, normo-active bowel sounds, no masses, no rebound or guarding. Abdomen is protuberant. Small area of ecchymosis noted to left lateral abdomen consistent with injection site. Striae noted on the abdomen bilaterally. BACK: Back is symmetrical on inspection and there is no deformity, no midline tenderness, no CVA tenderness. SKIN: no rashes and no bruising UPPER EXTREMITIES: upper extremities are grossly normal. FROM, nml pulses b/l. LOWER EXTREMITIES: No pitting edema. FROM, nml pulses b/l. Chronic skin changes noted bilateral distal lower extremities. NEURO EXAM: Normal sensorium, cranial nerves II-XII grossly intact, normal speech, no gross weakness of arms, no gross weakness of legs. Course Course 0125: I did review the EMR and noted prior history of atrial flutter, not atrial fibrillation. Patient was previously cardioverted. Patient with significant past medical history including cardiac issues. If patient would need cardioverted, she would require anesthesia consult due to an ASA category of at least 3 or higher. Patient felt her symptoms have all since resolved with the additional rate control provided despite a persistent RVR. I did review the patient's last echo as well. 0140: Patient asymptomatic at this time. I was contacted by nursing staff due to a repeat blood pressure that recycled low. I recycled the blood pressure while he was in the room and systolic back up to 125. A small amount of IV fluids were started on the patient as a precaution. I do feel some of this is still due to ongoing need for additional rate control. 0221: Patient's Cardizem increased to 7.5. Blood pressure has remained stable, patient asymptomatic. 0228: Case discussed with Dr. Segovia. Administered Medications Discontinued Medications [facility] ([facility]) [facility] [place]: 04/01/20 08:59 Last Admin: 03/02/20 08:20 Dose: 10 mg Documented by: [id number] Diltiazem HCl (Cardizem Addvial *Als*) Confirm Administered Dose 100 mg IV .klinify- [facility] Stop: 03/02/20 01:06 Last Admin: 03/02/20 01:16 Dose: 100 mg Documented by: [id number] Diltiazem HCl (Cardizem Cd) [facility] [place]: 04/01/20 04:59 Last Admin: 03/02/20 06:25 Dose: Not Given Documented by: [id number] Diltiazem HCl (Cardizem Cd) 120 mg PO QAM JORGE Stop: 04/01/20 08:59 Last Admin: 03/02/20 08:17 Dose: 120 mg Documented by: [id number] Fentanyl (Duragesic) 50 mcg TD Q72H JORGE Stop: 03/16/20 08:59 Last Admin: 03/02/20 08:15 Dose: 50 mcg Documented by: [id number] Gabapentin (Neurontin) 800 mg PO BID JORGE Stop: 04/01/20 08:59 Last Admin: 03/02/20 08:19 Dose: 800 mg Documented by: [id number] Diltiazem HCl 125 mg/ Dextrose 125 mls @ 0 mls/hr IV .Q0M JORGE; Protocol Stop: 04/01/20 01:14 Last Titration: 03/02/20 05:32 Dose: 0 mg/hr, 0 mls/hr Documented by: [id number] Cosigned by: [id number] Titration: 03/02/20 02:40 Dose: 10 mg/hr, 10 mls/hr Documented by: [id number] Cosigned by: [id number] Titration: 03/02/20 02:21 Dose: 7.5 mg/hr, 7.5 mls/hr Documented by: [id number] Cosigned by: [id number] Admin: 03/02/20 01:16 Dose: 5 mg/hr, 5 mls/hr Documented by: [id number] Cosigned by: [id number] Magnesium Sulfate/Dextrose (Magnesium Sulfate / D5w) 1 gm in 100 mls @ 100 mls/hr IV NOW STA Stop: 03/02/20 02:58 Last Infusion: 03/02/20 04:49 Dose: 0 mls/hr Documented by: [id number] Admin: 03/02/20 02:17 Dose: 100 mls/hr Documented by: [id number] Furosemide 40 mg/ Albumin (Human) 54 mls @ 54 mls/hr IV ONE ONE Stop: 03/02/20 04:29 Last Infusion: 03/02/20 04:49 Dose: 0 mls/hr Documented by: [id number] Admin: 03/02/20 03:30 Dose: 54 mls/hr Documented by: [id number] Magnesium Sulfate/Dextrose (Magnesium Sulfate / D5w) 1 gm in 100 mls @ 100 mls/hr IV ONE ONE Stop: 03/02/20 05:47 Last Infusion: 03/02/20 07:23 Dose: 0 mls/hr Documented by: [id number] Admin: 03/02/20 05:49 Dose: 100 mls/hr Documented by: [id number] Albumin Human (Albumin 25%) 50 mls @ 50 mls/hr IV ONE ONE Stop: 03/02/20 06:12 Last Infusion: 03/02/20 07:22 Dose: 0 mls/hr Documented by: [id number] Admin: 03/02/20 05:49 Dose: 50 mls/hr Documented by: [id number] Insulin Aspart (Novolog Flexpen) 0 units SC Q6 JORGE Stop: 04/01/20 05:59 Last Admin: 03/02/20 05:33 Dose: Not Given Documented by: [id number] Cosigned by: [id number] Insulin Aspart (Novolog Flexpen) 0 units SC ACHS JORGE Stop: 04/01/20 05:59 Last Admin: 03/02/20 11:54 Dose: Not Given Documented by: [id number] Cosigned by: [id number] Insulin Glargine (Lantus Solostar Pen) 10 units SQ BID [facility] Stop: 04/01/20 08:59 Last Admin: 03/02/20 08:18 Dose: 10 units Documented by: [id number] Cosigned by: [id number] Methocarbamol (Robaxin) 750 mg PO TID [facility] Stop: 04/01/20 08:59 Last Admin: 03/02/20 13:57 Dose: 750 mg Documented by: [id number] Admin: 03/02/20 08:20 Dose: 750 mg Documented by: [id number] Metoprolol Tartrate (Lopressor) 100 mg PO NOW STA Stop: 03/02/20 02:29 Last Admin: 03/02/20 02:39 Dose: 100 mg Documented by: [id number] Metoprolol Tartrate (Lopressor) 5 mg IV NOW STA Stop: 03/02/20 03:03 Last Admin: 03/02/20 03:26 Dose: 5 mg Documented by: [id number] Metoprolol Tartrate (Lopressor) 100 mg PO BID JORGE Stop: 04/01/20 08:59 Last Admin: 03/02/20 08:19 Dose: 100 mg Documented by: [id number] Miscellaneous () 1 ea N/A NOW STA Stop: 03/02/20 01:03 Last Admin: 03/02/20 01:16 Dose: 1 ea Documented by: [id number] Miscellaneous (Fentanyl Patch Remove & Waste) 1 ea N/A Q72H JORGE Stop: 04/01/20 08:58 Last Admin: 03/02/20 08:09 Dose: 1 ea Documented by: [id number] Cosigned by: [id number] Multivitamins (Multivitamin Tab) 1 tab PO QAM JORGE Stop: 04/01/20 08:59 Last Admin: 03/02/20 08:19 Dose: 1 tab Documented by: [id number] Pantoprazole Sodium (Protonix) 40 mg PO DAILY JORGE Stop: 04/01/20 08:59 Last Admin: 03/02/20 08:20 Dose: 40 mg Documented by: [id number] Potassium Chloride (Klor-Con M20) 20 meq PO NOW STA Stop: 03/02/20 02:31 Last Admin: 03/02/20 02:39 Dose: 20 meq Documented by: [id number] Potassium Chloride (Klor-Con M10) 10 meq PO TID JORGE Stop: 04/01/20 08:59 Last Admin: 03/02/20 13:57 Dose: 10 meq Documented by: [id number] Admin: 03/02/20 08:18 Dose: 10 meq Documented by: [id number] Umeclidinium [place] (Incruse Ellipta) 1 puffs INH QAM [facility] Stop: 04/01/20 08:59 Last Admin: 03/02/20 08:18 Dose: 1 puffs Documented by: [id number] Venlafaxine HCl (Effexor Extended Release) 150 mg PO QAM [facility] Stop: 04/01/20 08:59 Last Admin: 03/02/20 08:17 Dose: 150 mg Documented by: [id number] Venlafaxine HCl (Effexor Extended Release) 75 mg PO QAM [facility] Stop: 04/01/20 08:59 Last Admin: 03/02/20 08:17 Dose: 75 mg Documented by: [id number] Critical Care Time Critical Care Time: Yes Total Critical Care Time: 42 Critical care of 42 min performed to assess and manage high likelihood of life- threatening dysrhythmia, involving labs/imaging performed with assessment to evaluate a.fib with RVR diagnosis with frequent reassessment. This time includes bedside time, treatment discussions with patient/family/consultants, documentation time and excludes procedure time. Medical Decision Making Differential Diagnosis Differential diagnoses includes but is not limited to acute coronary syndrome, myocardial infarction, pericarditis, pulmonary embolus, aortic dissection, pneumonia, pneumothorax, musculoskeletal, shingles, esophageal. Medical Records Attestation: I reviewed the patient's medical records. Home Medications Current Medication List: was personally reviewed by me Laboratory Data Attestation: I reviewed the patient's lab results. Result diagrams: 03/02/20 01:18 03/02/20 01:18 Lab Results 03/02/20 03/02/20 03/02/20 Range/Units 01:18 01:18 01:18 WBC 9.86 (4.8-10.8) K/uL RBC 4.50 (4.2-5.4) M/uL Hgb 14.2 (12.0-16.0) g/dL Hct 41.2 (37-47) % MCV 91.6 (80-100) fL MCH 31.6 (25-34) pg MCHC 34.5 (32-36) g/dL RDW Std Deviation 44.4 (36.4-46.3) fL RDW Coeff of King 13.2 (11.5-14.5) % Plt Count 238 (130-400) K/uL MPV 9.9 (7.4-10.4) fL Immature Gran % (Auto) 0.3 % Neut % (Auto) 73.1 % Lymph % (Auto) 16.7 % [place] % (Auto) 8.5 % Eos % (Auto) 1.2 % Baso % (Auto) 0.2 % Immature Gran # (Auto) 0.03 H (0.00-0.02) K/uL Neut # (Auto) 7.20 H (1.4-6.5) K/uL Lymph # (Auto) 1.65 (1.2-3.4) K/uL [place] # (Auto) 0.84 H (0.11-0.59) K/uL Eos # (Auto) 0.12 (0-0.5) K/uL Baso # (Auto) 0.02 (0-0.2) K/uL PT 28.4 H (9.0-12.0) Seconds INR 2.8 H (0.9-1.1) Sodium 135 L (136-145) mmol/L Potassium 3.9 (3.5-5.1) mmol/L Chloride 98 (98-107) mmol/L Carbon Dioxide 29 (21-32) mmol/L Anion Gap 8.0 (3-11) BUN 19 H (7-18) mg/dl Creatinine 1.44 H (0.6-1.2) mg/dl Est Cr Clr Drug Dosing 46.5 ml/min Est GFR ( Amer) 44.7 Est GFR (Non-Af Amer) 38.6 BUN/Creatinine Ratio 13.2 (10-20) Glucose 191 H (70-99) mg/dl Estimat Average Glucose mg/dl Hemoglobin A1c (4.5-5.6) % Calcium 8.9 (8.5-10.1) mg/dl Magnesium 1.7 L (1.8-2.4) mg/dl Total Bilirubin 0.2 (0.2-1) mg/dl AST 27 (15-37) U/L ALT 35 (12-78) U/L Alkaline Phosphatase 80 (45-117) U/L Troponin I 0.059 H* (0-0.045) ng/ml NT-Pro-B Natriuret Pep 1242 H (0-900) pg/ml Total Protein 7.4 (6.4-8.2) gm/dl Albumin 2.9 L (3.4-5.0) gm/dl Globulin 4.5 H (2.5-4.0) gm/dl Albumin/Globulin Ratio 0.6 L (0.9-2) Lipase 131 (73-393) U/L 03/02/20 Range/Units 01:26 WBC (4.8-10.8) K/uL RBC (4.2-5.4) M/uL Hgb (12.0-16.0) g/dL Hct (37-47) % MCV (80-100) fL MCH (25-34) pg MCHC (32-36) g/dL RDW Std Deviation (36.4-46.3) fL RDW Coeff of King (11.5-14.5) % Plt Count (130-400) K/uL MPV (7.4-10.4) fL Immature Gran % (Auto) % Neut % (Auto) % Lymph % (Auto) % [place] % (Auto) % Eos % (Auto) % Baso % (Auto) % Immature Gran # (Auto) (0.00-0.02) K/uL Neut # (Auto) (1.4-6.5) K/uL Lymph # (Auto) (1.2-3.4) K/uL [place] # (Auto) (0.11-0.59) K/uL Eos # (Auto) (0-0.5) K/uL Baso # (Auto) (0-0.2) K/uL PT (9.0-12.0) Seconds INR (0.9-1.1) Sodium (136-145) mmol/L Potassium (3.5-5.1) mmol/L Chloride (98-107) mmol/L Carbon Dioxide (21-32) mmol/L Anion Gap (3-11) BUN (7-18) mg/dl Creatinine (0.6-1.2) mg/dl Est Cr Clr Drug Dosing ml/min Est GFR ( Amer) Est GFR (Non-Af Amer) BUN/Creatinine Ratio (10-20) Glucose (70-99) mg/dl Estimat Average Glucose 206 mg/dl Hemoglobin A1c 8.8 H (4.5-5.6) % Calcium (8.5-10.1) mg/dl Magnesium (1.8-2.4) mg/dl Total Bilirubin (0.2-1) mg/dl AST (15-37) U/L ALT (12-78) U/L Alkaline Phosphatase (45-117) U/L Troponin I (0-0.045) ng/ml NT-Pro-B Natriuret Pep (0-900) pg/ml Total Protein (6.4-8.2) gm/dl Albumin (3.4-5.0) gm/dl Globulin (2.5-4.0) gm/dl Albumin/Globulin Ratio (0.9-2) Lipase (73-393) U/L Imaging Data My Impression: X-ray: I interpreted the following studies. Chest: A single view study of the chest was reviewed and was negative for focal infiltrate, effusion, or wide mediastinum. She has CM and increased interstitial markings. This has been noted on prior studies also. ECG Data Attestation: I personally reviewed and interpreted this ECG as follows: Indication: + chest pain Rate (beats per minute): 146 Rhythm: + atrial fibrillation ECG Intervals/blocks: + Right Bundle branch block and + Normal QT ECG [place]: + Right axis deviation ECG ST segments: + Nonspecific ST abnormalities Comparison ECG Date: from (11/2019) Change: the following changes noted Additional Comments: a.fib with RVR new Blood Pressure Blood Pressure Findings: Elevated blood pressure Blood Pressure Disposition: further management by hospitalist MDM Narrative Patient brought in via EMS due to symptoms being found to have atrial fibrillation with rapid ventricular response. Patient was given 20 mg of Cardizem prehospital, and was continued on a Cardizem drip upon arrival here. Patient felt markedly improved by arrival here despite persistent RVR in the 130s. Patient was carefully increased on her Cardizem drip. Patient's INR was noted to be therapeutic. Patient did have an elevated troponin. I feel this is less likely ACS and more likely due to demand from her elevated heart rate. Patient's magnesium level was slightly low and this was repleted in the emergency room as well. Patient's creatinine slightly elevated compared to prior also. Patient denied any other recent changes. No evidence of fulminant CHF. I do not suspect occult infectious etiology at this time. Case discussed with hospitalist. An order was placed for continuous cardiac monitoring. The monitor shows a rate of 135 with atrial fibrillation_ rhythm. Impression & Plan Atrial fibrillation with rapid ventricular response, Chest pain, Acute dyspnea, Hypomagnesemia, Elevated troponin, Chronic respiratory failure with hypoxia, on home oxygen therapy Discharge Plan Visit Data *Final* Discharge Date/Time: 03/02/20 04:00 Chief Complaint: Chest Pain Stated Complaint: CHEST PAIN ED Provider: Stephie Sanchez Discharge Problem: Atrial fibrillation with rapid ventricular response, Chest pain, Acute dyspnea, Hypomagnesemia, Elevated troponin, Chronic respiratory failure with hypoxia, on home oxygen therapy Patient Disposition: Admitted As Inpatient Discharge Instructions Interventions: ED Discharge Assessment Last Done: 03/02/20 04:00 Discharge Problem: Chest pain Qualifiers: Chest pain type: unspecified Qualified Code(s): R07.9 - Chest pain, unspecified
[2020-03-02] MEDS ORDERED: dilTIAZem HCL 125 MG in DEXTROSE 5% 100 ML IV SCH ×2 (01:15→04:48)
[2020-03-02 01:31] LABS: Basophils # (auto) 0.02 K/uL (0-0.2); Basophils % (auto) 0.2 %; Eosinophils # (auto) 0.12 K/uL (0-0.5); Eosinophils % (auto) 1.2 %; Hematocrit (blood only) 41.2 % (37-47); Hemoglobin 14.2 g/dL (12.0-16.0); Immature Granulocytes # (auto) 0.03 K/uL (0.00-0.02); Immature Granulocytes % (auto) 0.3 %; Lymphocytes # (auto) 1.65 K/uL (1.2-3.4); Lymphocytes % (auto) 16.7 %; Mean Corpuscular Hemoglobin 31.6 pg (25-34); Mean Corpuscular Hgb Conc 34.5 g/dL (32-36); Mean Corpuscular Volume 91.6 fL (80-100); Mean Platelet Volume 9.9 fL (7.4-10.4); Monocytes # (auto) 0.84 K/uL (0.11-0.59); Monocytes % (auto) 8.5 %; Neutrophils % (auto) 73.1 %; Platelet Count 238 K/uL (130-400); RDW Coefficient of Variation 13.2 % (11.5-14.5); RDW Standard Deviation 44.4 fL (36.4-46.3); White Blood Count 9.86 K/uL (4.8-10.8)
[2020-03-02 01:40] LABS: INR 2.8 (0.9-1.1); Prothrombin Time 28.4 Seconds (9.0-12.0)
[2020-03-02 01:52] LABS: Albumin Level 2.9 gm/dl (3.4-5.0); BUN Creatinine Ratio 13.2 (10-20); Calcium 8.9 mg/dl (8.5-10.1); Creatinine Clr Calc Pharmacy 46.5 ml/min; Est GFR (African American) 44.7; Est GFR (Non-African American) 38.6; Magnesium 1.7 mg/dl (1.8-2.4); Potassium 3.9 mmol/L (3.5-5.1)
[2020-03-02] MEDS ORDERED: MAGNESIUM SULFATE / D5W 1 GM/100 ML BAG IV STA (01:59)
[2020-03-02 02:02] LABS: Albumin Globulin Ratio 0.6 (0.9-2); Bilirubin,Total 0.2 mg/dl (0.2-1); Globulin 4.5 gm/dl (2.5-4.0); Total Protein 7.4 gm/dl (6.4-8.2); Troponin I 0.059 ng/ml (0-0.045)
[2020-03-02] MEDS ORDERED: METOPROLOL TARTRATE 50 MG TAB PO STA (02:28)
[2020-03-02] MEDS ORDERED: POTASSIUM CHLORIDE 20 MEQ TABCR PO STA (02:30)
[2020-03-02] MEDS ORDERED: METOPROLOL TARTRATE 1 MG/ML VIAL IV STA (03:02)
--- NOTE | 2020-03-02 03:03 | History & Physical Report ---
Date of Service March 02, 2020 Assessment & Plan (1) Atrial fibrillation with rapid ventricular response: Recurrent AF hx atrial fibrillation/atrial flutter status post ablation on Coumadin Likely secondary to missed doses home beta-mana medication INR therapeutic Mild CHF secondary to above hx chronic diastolic heart failure (EF 55 to 59%, TTE 2019) Chest pain, troponin elevation in the setting of kidney dysfunction secondary to cardiac issues History chronic respiratory failure secondary to COPD/pulmonary hypertension on home O2 DARIUS on BiPAP Pulmonary status at baseline HTN, stable hx CVA as per records, chronic pain on narcotics DM2 insulin requiring, suboptimal control as of recent outpatient hemoglobin A1c of 9.2 last November 2019 anxiety/mood disorder, at baseline History medication noncompliance Ongoing tobacco abuse PCU Facilitate home beta-mana along with home oral Cardizem Wean off Cardizem drip IV Lasix and albumin 1 dose Strict I/Os, daily weights TTE, Cardiology consult RE new onset A. fib, chest pain, troponin elevation Trend troponin N.p.o. until patient seen by Cardiology in anticipation of any procedure Follow renal function, baseline UA Basal insulin adjusted for n.p.o. status for now, ISS BG goal [id number], update hemoglobin A1c Nicotine patch PRN DVT prophylaxis. Coumadin INR goal between 2 and 3 Full code Text document was generated using [employer] voice recognition software. It may contain grammatical or spelling errors. Kindly contact undersigned for clarification of any documentation item in question. History of Present Illness Chief Complaint: Chest pain, S OB Primary Care Provider: Manoj Goins, History obtained from patient and records. Medical history is significant for chronic diastolic heart failure, EF of 55-59% (TTE 2019), atrial flutter status post ablation on Coumadin, cardiac fibroblastoma status post surgery, HTN chronic respiratory failure secondary to COPD on home O2, DARIUS on BIPAP, history of pulmonary hypertension, ongoing tobacco abuse, hx CVA as per records, chronic pain on narcotics, DM2 insulin requiring, gastroparesis per records, anxiety/mood disorder. Recent confinement November 2019 for COPD exacerbation. Patient misplaced bottle of Lopressor medication 2 days ago. Unable to take medication. Requested PCP for refill. Last night patient was watching television when she experienced achy substernal chest pain going to her right arm with shortness of breath and sweatiness. No unusual cough, weight gain symptoms as per patient. Patient noted to be in rapid A. fib as per EMS, cardiac rate 170s. At the ER, IV Cardizem bolus and drip initiated. MEDICAL HISTORY: As above. SURGERIES: She has had hysterectomy, appendectomy, cholecystectomy, lumpectomy, mitral valve repair, tubal ligation, umbilical hernia repair, carpal tunnel surgery, Ear surgery, section, FAMILY HISTORY: Heart disease. IBD, diabetes PERSONAL AND SOCIAL HISTORY: Eight cigarettes a day, disabled, no chronic intake of alcoholic beverages. Allergies Allergy/AdvReac Type Severity Reaction Status Date / Time bee venom protein (honey bee) Allergy Severe SWELLING Verified 03/02/20 01:44 lisinopril Allergy Intermediate FACE Verified 03/02/20 01:44 SWELLING potato Allergy Intermediate BBQ chips Verified 03/02/20 01:44 - facial swelling metronidazole Allergy Mild FACE Verified 03/02/20 01:44 SWELLING strawberry Allergy Mild HIVES Verified 03/02/20 01:44 alprazolam Allergy Unknown RED FACE, Verified 03/02/20 01:44 FACE SWELLING lactose AdvReac Intermediate VOMTING Verified 03/02/20 01:44 DIARRHEA ABDOMINAL PAIN-LACTOSE INTOLERANCE prednisone AdvReac Mild AGGRESSIVE Verified 03/02/20 01:44 BEHAVIOR colesevelam AdvReac Unknown unknown Verified 03/02/20 01:44 lithium AdvReac Unknown jitters Verified 03/02/20 01:44 Home Medications Home Medications Medication Instructions Recorded Confirmed Type Spiriva with HandiHaler 1 cap INHALATION QAM 06/19/18 03/02/20 History atorvastatin 40 mg PO HS 06/19/18 03/02/20 History calcitriol 0.5 mcg PO QAM 06/19/18 03/02/20 History cetirizine 10 mg PO HS 06/19/18 03/02/20 History cholecalciferol (vitamin D3) 1,000 unit PO QAM 06/19/18 03/02/20 History [Vitamin D3] docusate sodium 100 mg PO DAILY PRN 06/19/18 03/02/20 History epinephrine [EpiPen] 0.3 mg IM Q3H PRN 06/19/18 03/02/20 History fentanyl [Duragesic] 1 patch TRANSDERMAL Q72H 06/19/18 03/02/20 History furosemide 80 mg PO BID 06/19/18 03/02/20 History methocarbamol 750 mg PO TID 10/05/18 06/18/20 History multivitamin 1 tab PO QAM 06/19/18 03/02/20 History ondansetron 8 mg PO BID PRN 06/19/18 03/02/20 History venlafaxine 150 mg PO QAM 06/19/18 03/02/20 History warfarin 5 mg PO SUTUWETHSA 06/19/18 03/02/20 History metoprolol tartrate 100 mg PO BID 09/14/18 03/02/20 History oxycodone 10 mg PO Q6H PRN 09/14/18 03/02/20 History trazodone 200 mg PO HS 09/14/18 03/02/20 History venlafaxine 75 mg PO QAM 09/14/18 03/02/20 History zolpidem 5 mg PO HS PRN 09/14/18 03/02/20 History amitriptyline 50 mg PO HS 05/28/19 03/02/20 History amlodipine 10 mg PO QAM 05/28/19 03/02/20 History diclofenac sodium 2 g TOPICAL QID PRN 05/28/19 03/02/20 History gabapentin 800 mg PO BID 05/28/19 03/02/20 History albuterol sulfate 90 mcg/actuation 2 puffs INH Q6H PRN #18 gm 06/10/19 03/02/20 Rx aerosol inhaler alendronate 70 mg tablet 70 mg PO WE tab 06/10/19 03/02/20 History warfarin 7.5 mg PO MOFR 09/19/19 03/02/20 History Lantus U-100 Insulin 16 unit SUBCUT BID 03/02/20 03/02/20 History diltiazem HCl 120 mg PO QAM 03/02/20 03/02/20 History doxycycline hyclate 100 mg PO BID 03/02/20 03/02/20 History pantoprazole 40 mg PO DAILY 03/02/20 03/02/20 History potassium chloride 10 meq PO TID 03/02/20 03/02/20 History Past Med/Surg History Medical History Acute renal failure (Resolved) Anemia (Resolved) remote hx blood transfusion (5+ years ago)= no definitive etiology Anxiety (Chronic) Asthma (Chronic) 3LPM via n/c mostly continuous (although patient states she does not wear this all the time) Atrial fibrillation (Chronic) a. fib/a. flutter s/p cardioversion (2017) Atrial fibrillation with RVR (Resolved) [place] esophagus (Chronic) Bipolar disorder (Chronic) Chronic back pain (Chronic) Chronic cor pulmonale (Chronic) Chronic kidney disease (Chronic) stage III Chronic obstructive pulmonary disease 3LPM via n/c mostly continuous (although patient states she does not wear this all the time) Chronic respiratory failure CVA (cerebral vascular accident) 2004 (per records; patient denies) Degeneration of cervical intervertebral disc (Chronic) Depression (Chronic) Diastolic CHF, chronic (Chronic) DM type 2 (diabetes mellitus, type 2) (Chronic) Elevated troponin (Resolved) Fibromyalgia (Chronic) Gastroparesis (Chronic) GERD (gastroesophageal reflux disease) (Chronic) History of Clostridium difficile infection (Resolved) History of DVT (deep vein thrombosis) (Resolved) left "hand" 2005- on AC HTN (hypertension) (Chronic) Hyperlipidemia (Chronic) Hyponatremia (Chronic) Hypothyroidism (Chronic) Insomnia (Chronic) Liver lesion (Chronic) Migraine (Chronic) Mitral stenosis (Chronic) 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 Nocturnal hypoxemia Obesity (Chronic) Obstructive sleep apnea treated with BiPAP (Chronic) Osteoarthritis (Chronic) Post traumatic stress disorder (Chronic) Surgical History H/O: hysterectomy (Resolved) History of adenoidectomy (Resolved) History of appendectomy (Resolved) LAPAROSCOPY History of cardiac cath (Resolved) 2004= no stents History of cataract surgery (Resolved) BILATERAL History of cholecystectomy (Resolved) LAPAROSCOPY History of colonoscopy (Resolved) History of esophagogastroduodenoscopy (EGD) (Resolved) History of herniorrhaphy (Resolved) UMBILICAL History of hysterectomy (Resolved) EMIGDIO WITH BSO History of mitral valve repair (Resolved) 2004 + resection fibroelastoma History of tonsillectomy (Resolved) Hx of appendectomy (Resolved) Hx of lumpectomy (Resolved) right breast BENIGN Hx of tubal ligation (Resolved) Hx of umbilical hernia repair (Resolved) S/P trigger finger release (Resolved) RIGHT/LEFT Family History Mother Family history of diabetes mellitus Sister Family history of diabetes mellitus Social History Preferred Language: Georgian Communication Ability: Effective Visual Impairment: No Limitations Social Professionals Required: No Beliefs That Will Affect Care: None marital status: / Current Living Situation: Alone Current Living Situation Comment: caregiver helps Feels Safe at Home: Yes Safety Concerns: Feels Safe At This Time Smoking Status: Current every day smoker Tobacco Type: cigarettes ; Cigarettes Per Day: 10 ; Second Hand Exposure: No ; Hx Alcohol Use: No Hx Substance Use: No Review of Systems Review of Systems: As per HPI, all 10 systems reviewed, all other ROS negative Physical Exam Physical Exam: GENERAL: Comfortable, obese , no respiratory distress SKIN: Normal color, warm HEENT: [place] palpebral conjunctivae, no ptosis, dry buccal mucosa, nasal cannula in place NECK : Supple, short neck, no tenderness CHEST : Decreased breath sounds, expiratory wheezes , no tenderness HEART : Irregular , no obvious murmurs ABDOMEN: Some distention, nontender EXTREMITIES : Chronic LE venous stasis without tenderness, no other conspicuous deformities noted NEUROLOGIC : Coherent, no facial asymmetry, no other gross focality Results & Data Results & Data ([facility]) Vital Signs (Past 12 Hours) Vital Signs Temp Pulse Pulse Resp BP BP Pulse Ox 03/02/20 02:20 138 H 18 121/110 H 98 03/02/20 02:02 140 H 18 134/97 97 03/02/20 01:55 129 H 18 109/86 98 03/02/20 01:45 140 H 18 125/90 97 03/02/20 01:35 138 H 18 84/45 L 98 03/02/20 01:22 155 H 18 112/71 98 03/02/20 01:13 97 03/02/20 00:57 36.7 C 141 H 18 122/109 H 97 Laboratory Results Laboratory Results WBC 9.86 K/uL (4.8-10.8) 03/02/20 01:18 RBC 4.50 M/uL (4.2-5.4) 03/02/20 01:18 Hgb 14.2 g/dL (12.0-16.0) 03/02/20 01:18 Hct 41.2 % (37-47) 03/02/20 01:18 MCV 91.6 fL (80-100) 03/02/20 01:18 MCH 31.6 pg (25-34) 03/02/20 01:18 MCHC 34.5 g/dL (32-36) 03/02/20 01:18 RDW Std Deviation 44.4 fL (36.4-46.3) 03/02/20 01:18 RDW Coeff of [place] 13.2 % (11.5-14.5) 03/02/20 01:18 Plt Count 238 K/uL (130-400) 03/02/20 01:18 MPV 9.9 fL (7.4-10.4) 03/02/20 01:18 Immature Gran % (Auto) 0.3 % 03/02/20 01:18 Neut % (Auto) 73.1 % 03/02/20 01:18 Lymph % (Auto) 16.7 % 03/02/20 01:18 [place] % (Auto) 8.5 % 03/02/20 01:18 Eos % (Auto) 1.2 % 03/02/20 01:18 Baso % (Auto) 0.2 % 03/02/20 01:18 Immature Gran # (Auto) 0.03 K/uL (0.00-0.02) H 03/02/20 01:18 Neut # (Auto) 7.20 K/uL (1.4-6.5) H 03/02/20 01:18 Lymph # (Auto) 1.65 K/uL (1.2-3.4) 03/02/20 01:18 [place] # (Auto) 0.84 K/uL (0.11-0.59) H 03/02/20 01:18 Eos # (Auto) 0.12 K/uL (0-0.5) 03/02/20 01:18 Baso # (Auto) 0.02 K/uL (0-0.2) 03/02/20 01:18 PT 28.4 Seconds (9.0-12.0) H 03/02/20 01:18 INR 2.8 (0.9-1.1) H 03/02/20 01:18 Sodium 135 mmol/L (136-145) L 03/02/20 01:18 Potassium 3.9 mmol/L (3.5-5.1) 03/02/20 01:18 Chloride 98 mmol/L (98-107) 03/02/20 01:18 Carbon Dioxide 29 mmol/L (21-32) 03/02/20 01:18 Anion Gap 8.0 (3-11) 03/02/20 01:18 BUN 19 mg/dl (7-18) H 03/02/20 01:18 Creatinine 1.44 mg/dl (0.6-1.2) H 03/02/20 01:18 Est Cr Clr Drug Dosing 46.5 ml/min 03/02/20 01:18 Est GFR ( Amer) 44.7 03/02/20 01:18 Est GFR (Non-Af Amer) 38.6 03/02/20 01:18 BUN/Creatinine Ratio 13.2 (10-20) 03/02/20 01:18 Glucose 191 mg/dl (70-99) H 03/02/20 01:18 Calcium 8.9 mg/dl (8.5-10.1) 03/02/20 01:18 Magnesium 1.7 mg/dl (1.8-2.4) L 03/02/20 01:18 Total Bilirubin 0.2 mg/dl (0.2-1) 03/02/20 01:18 AST 27 U/L (15-37) 03/02/20 01:18 ALT 35 U/L (12-78) 03/02/20 01:18 Alkaline Phosphatase 80 U/L (45-117) 03/02/20 01:18 Troponin I 0.059 ng/ml (0-0.045) H* 03/02/20 01:18 NT-Pro-B Natriuret Pep 1242 pg/ml (0-900) H 03/02/20 01:18 Total Protein 7.4 gm/dl (6.4-8.2) 03/02/20 01:18 Albumin 2.9 gm/dl (3.4-5.0) L 03/02/20 01:18 Globulin 4.5 gm/dl (2.5-4.0) H 03/02/20 01:18 Albumin/Globulin Ratio 0.6 (0.9-2) L 03/02/20 01:18 Lipase 131 U/L (73-393) 03/02/20 01:18 Diagnostic Findings Chest x-ray as per my interpretation congestion, cardiomegaly EKG as per my interpretation : Rate 145, 140, A. fib, RAD, RBBB, T wave abnormalities anterolateral leads
[2020-03-02] MEDS ORDERED: ALBUMIN 25% 50 ML with FUROSEMIDE 40 MG IV ONE (03:30)
[2020-03-02] MEDS ORDERED: GLUCOSE 40% GEL 15 GM TUBE PO PRN (04:48)
[2020-03-02] MEDS ORDERED: MAGNESIUM SULFATE / D5W 1 GM/100 ML BAG IV ONE (04:48)
[2020-03-02] MEDS ORDERED: ACETAMINOPHEN 325 MG TAB PO PRN (04:48)
[2020-03-02] MEDS ORDERED: OXYCODONE HCL IR 5 MG TAB (IMMEDIATE RELEASE) PO PRN (04:48)
[2020-03-02] MEDS ORDERED: DEXTROSE 50% 50 ML SYRINGE IV PRN (04:48)
[2020-03-02] MEDS ORDERED: DOCUSATE SODIUM 100 MG CAP PO PRN (04:48)
[2020-03-02] MEDS ORDERED: PROMETHAZINE HCL 12.5 MG in SODIUM CHLORIDE 0.9% 50 ML IV PRN (04:48)
[2020-03-02] MEDS ORDERED: CARBOHYDRATES FOR HYPOGLYCEMIA PO PRN (04:48)
[2020-03-02] MEDS ORDERED: XOPENEX/ATROVENT 1.25mg/0.5MG NEB COMBO NEB PRN (04:48)
[2020-03-02] MEDS ORDERED: GLUCOSE 10 TABS/TUBE PO PRN (04:48)
[2020-03-02] MEDS ORDERED: NITROGLYCERIN SL 0.4 MG/TAB TAB SL PRN (04:48)
[2020-03-02] MEDS ORDERED: IPRATROPIUM BROMIDE NEB SOLN 0.02% 2.5 ML VIAL INH PRN (04:48)
[2020-03-02] MEDS ORDERED: LEVALBUTEROL 1.25MG/0.5ML NEB INH PRN (04:48)
[2020-03-02] MEDS ORDERED: GLUCAGON FOR INJ 1 MG VIAL SQ PRN (04:48)
[2020-03-02] MEDS ORDERED: dilTIAZem HCL 120 MG CAPCR PO SCH ×3 (05:00→09:00)
[2020-03-02] MEDS ORDERED: ALBUMIN 25% 50 ML IV ONE (05:13)
[2020-03-02] MEDS ORDERED: DIGOXIN 250 MCG in SYRINGE 9 ML IV STA (05:16)
[2020-03-02] MEDS ORDERED: INSULIN ASPART 100 UNITS/ML 3 ML PEN SC SCH ×2 (06:00→12:00)
[2020-03-02 06:14] LABS: Estimated Average Glucose 206 mg/dl; Hemoglobin A1C 8.8 % (4.5-5.6)
--- NOTE | 2020-03-02 07:12 | XRay Report ---
XR chest 1V portable CLINICAL HISTORY: Shortness of breath. Chest pain. COMPARISON STUDY: Chest radiograph November 28, 2019. FINDINGS: Cardiomegaly is unchanged. Note is made of a prosthetic mitral valve. A right anterior abdo amy wall defect is again noted. Interstitial thickening is unchanged and suggest pulmonary edema. N o lobar consolidation is present. Minimal bibasilar opacities favor atelectasis. IMPRESSION: Mild pulmonary edema, similar to prior exam. ACT 112: Negative or not required by law. Electronically signed by: Herman Chavez M.D. 03/02/2020 7:11 AM
[2020-03-02] MEDS: POTASSIUM CHLORIDE 10 MEQ TABCR PO SCH ×2 (08:18→13:57)
[2020-03-02] MEDS: METHOCARBAMOL 750 MG TABLET PO SCH ×2 (08:20→13:57)
[2020-03-02 08:35] LABS: Appearance Urine Clear (Clear); Bacteria Urine Automated Negative (Negative); Bilirubin Urine Negative (Negative); Blood Urine Negative (Negative); Cast Urine Automated 0 /lpf (0-5); Color Urine Yellow; Epithelial Cell Urine Auto >30 /lpf (0-5); Glucose Urine UA Trace (Negative); Ketones Urine Negative (Negative); Leukocyte Esterase Urine Negative (Negative); Nitrite Urine Negative (Negative); Protein Urine 1+ (Negative); RBC Urine Automated 0-4 /hpf (0-4); Specific Gravity Urine 1.012 (1.000-1.030); Urobilinogen Urine Negative (Negative)
[2020-03-02] MEDS ORDERED: GABAPENTIN 800 MG TAB PO SCH (09:00)
[2020-03-02] MEDS ORDERED: VENLAFAXINE HCL XR 150 MG CAPXR PO SCH (09:00)
[2020-03-02] MEDS ORDERED: METOPROLOL TARTRATE 100 MG TAB PO SCH (09:00)
[2020-03-02] MEDS ORDERED: AMLODIPINE BESYLATE 5 MG TAB PO SCH (09:00)
[2020-03-02] MEDS ORDERED: UMECLIDINIUM BROMIDE 62.5MCG/BLISTER 7 PUFFS/INHALER INH SCH (09:00)
[2020-03-02] MEDS ORDERED: INSULIN GLARGINE SOLOSTAR 100 UNITS/ML 3 ML PEN SQ SCH (09:00)
[2020-03-02] MEDS ORDERED: MULTIVITAMIN TAB PO SCH (09:00)
[2020-03-02] MEDS ORDERED: PANTOprazole 40 MG TAB PO SCH (09:00)
[2020-03-02] MEDS ORDERED: VENLAFAXINE HCL XR 75 MG CAPXR PO SCH (09:00)
[2020-03-02] MEDS ORDERED: fentaNYL 50 MCG/HR TDSY TD SCH (09:00)
--- NOTE | 2020-03-02 11:03 | Cardiology Consultation ---
Date of Consultation March 02, 2020 Assessment & Plan (1) Atrial fibrillation with rapid ventricular response: (2) Chest pain: (3) Acute dyspnea: (4) Severe obstructive sleep apnea: (5) Mitral stenosis: (6) Nocturnal hypoxemia: Given the fact that her discomfort resolved with rate control of her A. fib it stands to reason that her discomfort was secondary to her tachycardia. Cardiac enzymes, EKG and echocardiogram are all unremarkable for signs of ischemia. I offered her the option of rhythm control versus rate control treatment strategies for her atrial fibrillation and discussed possible cardioversion today. She states that she prefer to hold off on the cardioversion for now since she is feeling back to normal and would like to go home. My office will call to arrange follow-up in the next week or so to see how she is feeling and consideration may be given to performing an outpatient Lexiscan nuclear stress test at that time if her symptoms should persist. Would discharge home on previous outpatient medical regimen. Okay to discharge home from a cardiac standpoint. History of Present Illness Reason for Consultation: chest discomfort Requesting Physician: Dr. Moreau Attending Physician: Abdelrahman Moreau MD History of Present Illness It was my pleasure to see Ms. Minaya in consultation today March 02, 2020. She is a very pleasant yet markedly complex 64-year-old woman who is very known to our cardiology practice. She presented to [facility] emergency department on 03/01/2020 with complaints of chest discomfort. She states that she misplaced her bottle of metoprolol approximately 2 days prior to presentation. But states that she has been taking all of her other medications. She woke up and felt a heaviness sensation in her right shoulder area up into her right arm. She became concerned and came in the emergency department. Upon arrival she was found to be in A. fib with rapid ventricular response. Her previous metoprolol was reinstituted and her symptoms resolved. Currently she is resting comfortably, states that she feels back to normal and would like to go home as soon as possible. Past medical history as per most recent outpatient clinic note: 1. 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 2. June 13, 2005 cardiac catheterization at [facility] revealing left dominant coronary system with small caliber distal vessels consistent with diabetic history, without obstructive disease. 3. Symptomatic atrial flutter observed initially in February 2013, status post 03/16/2013 and 10/20/2018 cardioversions. 4. May 02, [address] Masterson, successful ablation of the tricuspid valve to inferior vena caval isthmus with bidirectional block and termination of atrial flutter. Post ablation electrophysiologic study showed dual pathways with echo beats, no inducible SVT however extensive induction was not attempted 5. Coumadin prescribed secondary to the paroxysmal atrial flutter, CHADS2 Score of 5 out of 6 (CHF, HTN, DM, CVA), Lambl's Excrescences, history of DVT, and the mitral valve disease. 6. She has not been felt to be a great candidate for antiarrhythmic therapy due to QT prolongation from her psych medications. 7. Severe chronic obstructive lung disease, advanced emphysema, chronic hypoxemia with supplemental oxygen therapy PRN during the day and QHS. Ongoing tobacco abuse 8. Severe pulmonary hypertension 9. Chronic right heart failure, cor pulmonale physiology 10. Obstructive sleep apnea, on CPAP therapy. 11. Anemia 12. Hypertension 13. Hyperlipidemia 14. Type II diabetes mellitus with gastroparesis 15. Stage III chronic kidney disease 16. Left adrenal mass 17. Obesity 18. Bipolar disorder 19. Insomnia 20. GERD 21. Gastroparesis 22. Hypothyroidism 23. Osteoarthritis. 24. Cervical disc disease 25. Diverticulosis. Diverticulitis. 26. Ear drum surgery in 1994 27. Colonoscopy with adenomatous polypectomy in 2009, tubulovillous adenoma polypectomy in 2011, and adenomatous polypectomy in 2012. 28. Tubal ligation 29. Right lumpectomy 30. Cholecystectomy 31. Umbilical hernia repair 32. Incarcerated incisional hernia repair in 2008 33. Appendectomy at age 16 34. Total hysterectomy 35. Left ring finger trigger release on 06/30/2018 36. Right ring trigger finger release on August 04, 2018 Allergies Allergy/AdvReac Type Severity Reaction Status Date / Time bee venom protein (honey bee) Allergy Severe SWELLING Verified 03/02/20 01:44 lisinopril Allergy Intermediate FACE Verified 03/02/20 01:44 SWELLING potato Allergy Intermediate BBQ chips Verified 03/02/20 01:44 - facial swelling metronidazole Allergy Mild FACE Verified 03/02/20 01:44 SWELLING strawberry Allergy Mild HIVES Verified 03/02/20 01:44 alprazolam Allergy Unknown RED FACE, Verified 03/02/20 01:44 FACE SWELLING lactose AdvReac Intermediate VOMTING Verified 03/02/20 01:44 DIARRHEA ABDOMINAL PAIN-LACTOSE INTOLERANCE prednisone AdvReac Mild AGGRESSIVE Verified 03/02/20 01:44 BEHAVIOR colesevelam AdvReac Unknown unknown Verified 03/02/20 01:44 lithium AdvReac Unknown jitters Verified 03/02/20 01:44 Home Medications Home Medications Medication Instructions Recorded Confirmed Type Spiriva with HandiHaler 1 cap INHALATION QAM 06/19/18 03/02/20 History atorvastatin 40 mg PO HS 06/19/18 03/02/20 History calcitriol 0.5 mcg PO QAM 06/19/18 03/02/20 History cetirizine 10 mg PO HS 06/19/18 03/02/20 History cholecalciferol (vitamin D3) 1,000 unit PO QAM 06/19/18 03/02/20 History [Vitamin D3] docusate sodium 100 mg PO DAILY PRN 06/19/18 03/02/20 History epinephrine [EpiPen] 0.3 mg IM Q3H PRN 06/19/18 03/02/20 History fentanyl [Duragesic] 1 patch TRANSDERMAL Q72H 06/19/18 03/02/20 History furosemide 80 mg PO BID 06/19/18 03/02/20 History methocarbamol 750 mg PO TID 06/19/18 03/02/20 History multivitamin 1 tab PO QAM 06/19/18 03/02/20 History ondansetron 8 mg PO BID PRN 06/19/18 03/02/20 History venlafaxine 150 mg PO QAM 06/19/18 03/02/20 History warfarin 5 mg PO SUTUWETHSA 06/19/18 03/02/20 History metoprolol tartrate 100 mg PO BID 09/14/18 03/02/20 History oxycodone 10 mg PO Q6H PRN 09/14/18 03/02/20 History trazodone 200 mg PO HS 09/14/18 03/02/20 History venlafaxine 75 mg PO QAM 09/14/18 03/02/20 History zolpidem 5 mg PO HS PRN 09/14/18 03/02/20 History amitriptyline 50 mg PO HS 05/28/19 03/02/20 History amlodipine 10 mg PO QAM 05/28/19 03/02/20 History diclofenac sodium 2 g TOPICAL QID PRN 05/28/19 03/02/20 History gabapentin 800 mg PO BID 05/28/19 03/02/20 History albuterol sulfate 90 mcg/actuation 2 puffs INH Q6H PRN #18 gm 06/10/19 03/02/20 Rx aerosol inhaler alendronate 70 mg tablet 70 mg PO WE tab 06/10/19 03/02/20 History warfarin 7.5 mg PO MOFR 09/19/19 03/02/20 History Lantus U-100 Insulin 16 unit SUBCUT BID 03/02/20 03/02/20 History diltiazem HCl 120 mg PO QAM 03/02/20 03/02/20 History doxycycline hyclate 100 mg PO BID 03/02/20 03/02/20 History magnesium oxide 400 mg PO BID #14 tab 03/02/20 Rx pantoprazole 40 mg PO DAILY 03/02/20 03/02/20 History potassium chloride 10 meq PO TID 03/02/20 03/02/20 History Patient History Medical History Acute renal failure (Resolved) Anemia (Resolved) remote hx blood transfusion (5+ years ago)= no definitive etiology Anxiety (Chronic) Asthma (Chronic) 3LPM via n/c mostly continuous (although patient states she does not wear this all the time) Atrial fibrillation (Chronic) a. fib/a. flutter s/p cardioversion (2016) Atrial fibrillation with RVR (Resolved) Lynn esophagus (Chronic) Bipolar disorder (Chronic) Chronic back pain (Chronic) Chronic cor pulmonale (Chronic) Chronic kidney disease (Chronic) stage III Chronic obstructive pulmonary disease 3LPM via n/c mostly continuous (although patient states she does not wear this all the time) Chronic respiratory failure CVA (cerebral vascular accident) 2004 (per records; patient denies) Degeneration of cervical intervertebral disc (Chronic) Depression (Chronic) Diastolic CHF, chronic (Chronic) DM type 2 (diabetes mellitus, type 2) (Chronic) Elevated troponin (Resolved) Fibromyalgia (Chronic) Gastroparesis (Chronic) GERD (gastroesophageal reflux disease) (Chronic) History of Clostridium difficile infection (Resolved) History of DVT (deep vein thrombosis) (Resolved) left "hand" 2005- on AC HTN (hypertension) (Chronic) Hyperlipidemia (Chronic) Hyponatremia (Chronic) Hypothyroidism (Chronic) Insomnia (Chronic) Liver lesion (Chronic) Migraine (Chronic) Mitral stenosis (Chronic) Mitral valve disorder s/p mitral valve repair (2005) + resection fibroelastoma Nocturnal hypoxemia Obesity (Chronic) Obstructive sleep apnea treated with BiPAP (Chronic) Osteoarthritis (Chronic) Post traumatic stress disorder (Chronic) Surgical History H/O: hysterectomy (Resolved) History of adenoidectomy (Resolved) History of appendectomy (Resolved) LAPAROSCOPY History of cardiac cath (Resolved) 2005= no stents History of cataract surgery (Resolved) BILATERAL History of cholecystectomy (Resolved) LAPAROSCOPY History of colonoscopy (Resolved) History of esophagogastroduodenoscopy (EGD) (Resolved) History of herniorrhaphy (Resolved) UMBILICAL History of hysterectomy (Resolved) EMIGDIO WITH BSO History of mitral valve repair (Resolved) 2004 + resection fibroelastoma History of tonsillectomy (Resolved) Hx of appendectomy (Resolved) Hx of lumpectomy (Resolved) right breast BENIGN Hx of tubal ligation (Resolved) Hx of umbilical hernia repair (Resolved) S/P trigger finger release (Resolved) RIGHT/LEFT Family History Mother Family history of diabetes mellitus Sister Family history of diabetes mellitus Social History Preferred Language: Malay Communication Ability: Effective Visual Impairment: No Limitations Client Leader Required: No Beliefs That Will Affect Care: None marital status: / Current Living Situation: Alone Current Living Situation Comment: caregiver helps Feels Safe at Home: Yes Safety Concerns: Feels Safe At This Time Smoking Status: Current every day smoker Tobacco Type: cigarettes ; Cigarettes Per Day: 10 ; Second Hand Exposure: No ; Hx Alcohol Use: No Hx Substance Use: No Review of Systems Review of Systems: All systems reviewed & are unremarkable except as noted in HPI & below Physical Exam Physical Exam: General: Awake, alert and oriented x 3. No acute distress. HEENT: Normocephalic, atraumatic. Pupils equal, round and reactive to light and accommodation. Extraocular muscles are intact. Anicteric sclera. Moist mucous membranes. Neck: No JVD. No bruit. Cardiovascular: irregularly irregular, unable to appreciate murmur, rub or gallop. Pulmonary: Clear to auscultation bilaterally. No rales, rhonchi, or wheezing. Abdomen: Bowel sounds x 4, soft. No rebound, guarding or tenderness. No organomegaly. Extremities: No clubbing, cyanosis or edema. +2 pedal pulses bilaterally. Skin: Warm and dry. Results & Data ([facility]) Vital Signs (Past 12 Hours) Vital Signs Temp Pulse Pulse Resp BP BP BP 03/02/20 07:45 36.7 C 84 20 108/72 03/02/20 04:30 36.7 C 114 H 20 98/72 L 03/02/20 04:00 102 H 16 134/90 03/02/20 03:35 103 H 18 108/83 03/02/20 03:08 130 H 17 125/66 03/02/20 02:20 138 H 18 121/110 H 03/02/20 02:02 140 H 18 134/97 03/02/20 01:55 129 H 18 109/86 03/02/20 01:45 140 H 18 125/90 03/02/20 01:35 138 H 18 84/45 L 03/02/20 01:22 155 H 18 112/71 03/02/20 01:13 03/02/20 00:57 36.7 C 141 H 18 122/109 H Pulse Ox 03/02/20 07:45 99 03/02/20 04:30 97 03/02/20 04:00 98 03/02/20 03:35 97 03/02/20 03:08 97 03/02/20 02:20 98 03/02/20 02:02 97 03/02/20 01:55 98 03/02/20 01:45 97 03/02/20 01:35 98 03/02/20 01:22 98 03/02/20 01:13 97 03/02/20 00:57 97 (1) Chest pain Chest pain type: unspecified Qualified Code(s): R07.9 - Chest pain, unspecified
[2020-03-02] MEDS ORDERED: Nursing to Pharmacy Communication SCH (11:30)
[2020-03-02] MEDS ORDERED: CHECK FENTANYL PATCH PLACEMENT SCH (16:00)
--- NOTE | 2020-03-02 17:17 | Electrocardiogram Report ---
Test Reason : Blood Pressure : / mmHG Vent. Rate : 146 BPM Atrial Rate : 163 BPM P-R Int : 000 ms QRS Dur : 140 ms QT Int : 294 ms P-R-T Axes : 000 113 -23 degrees QTc Int : 458 ms Atrial fibrillation with rapid ventricular response Right bundle branch block Marked T wave abnormality consider anterolateral ischemia Abnormal ECG When compared with ECG of 28-NOV-2019 10:04, Atrial fibrillation has replaced Sinus rhythm Vent. rate has increased BY 80 BPM Confirmed by Jarrod Alaniz ([id number]) on 03/02/2020 5:16:57 PM Referred By: REFERRED SELF Confirmed By:Tristen Alaniz
--- NOTE | 2020-03-02 19:24 | Hospitalist Progress Note ---
Date of Service March 02, 2020 Assessment & Plan (1) Atrial fibrillation with rapid ventricular response: Recurrent AF hx atrial fibrillation/atrial flutter status post ablation on Coumadin Likely secondary to missed doses home beta-mana medication INR therapeutic --Patient placed on IV Cardizem drip Heart rate improved, less than 100 Elevated by [facility] clinical pathologist Dr. Jaquez Plan to resume usual metoprolol tartrate and diltiazem p.o., Imodium as well Follow-up with patient in cardiology clinic in 1 to 2 weeks Advised patient to regularly take her medications, also home health services arranged for patient Possible mild CHF exacerbation secondary to above hx chronic diastolic heart failure (EF 55 to 59%, TTE 2018) --Given IV Lasix Creatinine 1.4, magnesium 1.7 Resume usual Lasix p.o. Repeat basic metabolic profile and magnesium on follow-up with PCP Chest pain, troponin elevation in the setting of kidney dysfunction secondary to cardiac issues -- Occasional Babysitter recommendation: Cardiac enzymes, EKG and echocardiogram are all unremarkable for signs of ischemia. Follow-up with cardiology clinic next week, possible Lexiscan stress test if chest pain persists History chronic respiratory failure secondary to COPD/pulmonary hypertension on home O2 DARIUS on BiPAP Pulmonary status at baseline HTN, stable hx CVA as per records chronic pain on narcotics DM2 insulin requiring, suboptimal control as of recent outpatient hemoglobin A1c of 9.2 last November 2019 anxiety/mood disorder, at baseline --Stable DVT prophylaxis. Coumadin INR goal between 2 and 3 Full code Disposition Discharge to home, with home health services Follow-up with PCP next week per discharge instructions Follow-up with [facility] cardiology clinic in 1 to 2 weeks, clinic will call the patient for the appointment Plan of care discussed with patient in detail and at length All questions were answered She is understanding, agreeable, comfortable with the plan of care Admission and Anticipated Discharge Date Admission Date: March 02, 2020 Subjective Follow-up for atrial fibrillation Seen resting in bed, comfortable, not in distress, alert x3, in good spirit Off Cardizem drip, heart rate controlled, remains in A. fib Denies chest pain, shortness of breath, palpitations, dizziness, headache, nausea No other symptoms States she is ready like to be discharged today as possible Review of Systems Review of Systems: All systems reviewed & are unremarkable except as noted in HPI & below Physical Exam Physical Exam: General- oriented x 3, not in distress, speaks in sentences with no effort or accessory muscle use Head- atraumatic Eyes- PERRL, EOMI, anicteric ENT- oropharynx clear Neck- supple, no JVD, no adenopathy, no thyromegaly; carotids +2/2, no bruits appreciated Lungs- clear to auscultation bilaterally, no rales/wheezes Heart- normal rate, irregularly irregular rhythm; no murmur, no gallop, no rub appreciated Abdomen- normal bowel sounds, nondistended, soft, nontender, no masses or hepatosplenomegaly Extremities- no pretibial edema, no calf tenderness; peripheral pulses intact Neuro- alert, oriented x 3; CN 2-12 grossly intact; motor 5/5 bilaterally;sensation 100% on all extremities; no other gross focal neurologic deficits Skin- warm & dry Results & Data Results & Data ([facility]) Vital Signs (Past 12 Hours) Vital Signs Temp Pulse Resp BP BP Pulse Ox 03/02/20 14:15 36.5 C 74 19 108/72 108/52 L 97 03/02/20 11:07 36.5 C 74 19 108/52 L 97 03/02/20 07:45 36.7 C 84 20 108/72 99 Laboratory Results Laboratory Results - last 24 hr 03/02/20 03/02/20 03/02/20 01:18 01:18 01:18 WBC 9.86 RBC 4.50 Hgb 14.2 Hct 41.2 MCV 91.6 MCH 31.6 MCHC 34.5 RDW Std Deviation 44.4 RDW Coeff of King 13.2 Plt Count 238 MPV 9.9 Immature Gran % (Auto) 0.3 Neut % (Auto) 73.1 Lymph % (Auto) 16.7 Pershing % (Auto) 8.5 Eos % (Auto) 1.2 Baso % (Auto) 0.2 Immature Gran # (Auto) 0.03 H Neut # (Auto) 7.20 H Lymph # (Auto) 1.65 Pershing # (Auto) 0.84 H Eos # (Auto) 0.12 Baso # (Auto) 0.02 PT 28.4 H INR 2.8 H Sodium 135 L Potassium 3.9 Chloride 98 Carbon Dioxide 29 Anion Gap 8.0 BUN 19 H Creatinine 1.44 H Est Cr Clr Drug Dosing 46.5 Est GFR ( Amer) 44.7 Est GFR (Non-Af Amer) 38.6 BUN/Creatinine Ratio 13.2 Glucose 191 H POC Glucose Estimat Average Glucose Hemoglobin A1c Calcium 8.9 Magnesium 1.7 L Total Bilirubin 0.2 AST 27 ALT 35 Alkaline Phosphatase 80 Troponin I 0.059 H* NT-Pro-B Natriuret Pep 1242 H Total Protein 7.4 Albumin 2.9 L Globulin 4.5 H Albumin/Globulin Ratio 0.6 L Lipase 131 Urine Color Urine Appearance Urine pH Ur Specific [place] Urine Protein Urine Glucose (UA) Urine Ketones Urine Blood Urine Nitrite Urine Bilirubin Urine Urobilinogen Ur Leukocyte Esterase Urine WBC (Auto) Urine RBC (Auto) U Hyaline Cast (Auto) U Epithel Cells (Auto) Urine Bacteria (Auto) 03/02/20 03/02/20 03/02/20 01:26 05:19 06:03 WBC RBC Hgb Hct MCV MCH MCHC RDW Std Deviation RDW Coeff of King Plt Count MPV Immature Gran % (Auto) Neut % (Auto) Lymph % (Auto) Pershing % (Auto) Eos % (Auto) Baso % (Auto) Immature Gran # (Auto) Neut # (Auto) Lymph # (Auto) Pershing # (Auto) Eos # (Auto) Baso # (Auto) PT INR Sodium Potassium Chloride Carbon Dioxide Anion Gap BUN Creatinine Est Cr Clr Drug Dosing Est GFR ( Amer) Est GFR (Non-Af Amer) BUN/Creatinine Ratio Glucose POC Glucose 161 H Estimat Average Glucose 206 Hemoglobin A1c 8.8 H Calcium Magnesium Total Bilirubin AST ALT Alkaline Phosphatase Troponin I 0.100 H* NT-Pro-B Natriuret Pep Total Protein Albumin Globulin Albumin/Globulin Ratio Lipase Urine Color Urine Appearance Urine pH Ur Specific [place] Urine Protein Urine Glucose (UA) Urine Ketones Urine Blood Urine Nitrite Urine Bilirubin Urine Urobilinogen Ur Leukocyte Esterase Urine WBC (Auto) Urine RBC (Auto) U Hyaline Cast (Auto) U Epithel Cells (Auto) Urine Bacteria (Auto) 03/02/20 03/02/20 08:10 11:41 WBC RBC Hgb Hct MCV MCH MCHC RDW Std Deviation RDW Coeff of King Plt Count MPV Immature Gran % (Auto) Neut % (Auto) Lymph % (Auto) Pershing % (Auto) Eos % (Auto) Baso % (Auto) Immature Gran # (Auto) Neut # (Auto) Lymph # (Auto) Pershing # (Auto) Eos # (Auto) Baso # (Auto) PT INR Sodium Potassium Chloride Carbon Dioxide Anion Gap BUN Creatinine Est Cr Clr Drug Dosing Est GFR ( Amer) Est GFR (Non-Af Amer) BUN/Creatinine Ratio Glucose POC Glucose 105 H Estimat Average Glucose Hemoglobin A1c Calcium Magnesium Total Bilirubin AST ALT Alkaline Phosphatase Troponin I NT-Pro-B Natriuret Pep Total Protein Albumin Globulin Albumin/Globulin Ratio Lipase Urine Color Yellow Urine Appearance Clear Urine pH 5.0 Ur Specific [place] 1.012 Urine Protein 1+ H Urine Glucose (UA) Trace H Urine Ketones Negative Urine Blood Negative Urine Nitrite Negative Urine Bilirubin Negative Urine Urobilinogen Negative Ur Leukocyte Esterase Negative Urine WBC (Auto) 1-5 Urine RBC (Auto) 0-4 U Hyaline Cast (Auto) 0 U Epithel Cells (Auto) >30 H Urine Bacteria (Auto) Negative
[2020-03-02] MEDS ORDERED: AMITRIPTYLINE HCL 50 MG TAB PO SCH (21:00)
[2020-03-02] MEDS ORDERED: TRAZODONE HCL 100 MG TAB PO SCH (21:00)
[2020-03-02] MEDS ORDERED: ATORVASTATIN 40 MG TAB PO SCH (21:00)
--- NOTE | 2020-03-05 19:45 | Discharge Summary ---
Date of Service March 05, 2020 Admission HPI Per Admitting Provider History obtained from patient and records. Medical history is significant for chronic diastolic heart failure, EF of 55-59% (TTE 2019), atrial flutter status post ablation on Coumadin, cardiac fibroblastoma status post surgery, HTN chronic respiratory failure secondary to COPD on home O2, DARIUS on BIPAP, history of pulmonary hypertension, ongoing tobacco abuse, hx CVA as per records, chronic pain on narcotics, DM2 insulin requiring, gastroparesis per records, anxiety/mood disorder. Recent confinement November 2019 for COPD exacerbation. Patient misplaced bottle of Lopressor medication 2 days ago. Unable to take medication. Requested PCP for refill. Last night patient was watching television when she experienced achy substernal chest pain going to her right arm with shortness of breath and sweatiness. No unusual cough, weight gain symptoms as per patient. Patient noted to be in rapid A. fib as per EMS, cardiac rate 170s. At the ER, IV Cardizem bolus and drip initiated. MEDICAL HISTORY: As above. SURGERIES: She has had hysterectomy, appendectomy, cholecystectomy, lumpectomy, mitral valve repair, tubal ligation, umbilical hernia repair, carpal tunnel surgery, Ear surgery, section, FAMILY HISTORY: Heart disease. IBD, diabetes PERSONAL AND SOCIAL HISTORY: Eight cigarettes a day, disabled, no chronic intake of alcoholic beverages. Admission Exam Per Admitting Provider GENERAL: Comfortable, obese , no respiratory distress SKIN: Normal color, warm HEENT: [place] palpebral conjunctivae, no ptosis, dry buccal mucosa, nasal cannula in place NECK : Supple, short neck, no tenderness CHEST : Decreased breath sounds, expiratory wheezes , no tenderness HEART : Irregular , no obvious murmurs ABDOMEN: Some distention, nontender EXTREMITIES : Chronic LE venous stasis without tenderness, no other conspicuous deformities noted NEUROLOGIC : Coherent, no facial asymmetry, no other gross focality Principal Diagnosis ATRIAL FIBRILLATION WITH RAPID VENTRICULAR RESPONSE Discharge Exam General- oriented x 3, not in distress, speaks in sentences with no effort or accessory muscle use Head- atraumatic Eyes- PERRL, EOMI, anicteric ENT- oropharynx clear Neck- supple, no JVD, no adenopathy, no thyromegaly; carotids +2/2, no bruits appreciated Lungs- clear to auscultation bilaterally, no rales/wheezes Heart- normal rate, irregularly irregular rhythm; no murmur, no gallop, no rub appreciated Abdomen- normal bowel sounds, nondistended, soft, nontender, no masses or hepatosplenomegaly Extremities- no pretibial edema, no calf tenderness; peripheral pulses intact Neuro- alert, oriented x 3; CN 2-12 grossly intact; motor 5/5 bilaterally;sensation 100% on all extremities; no other gross focal neurologic deficits Skin- warm & dry Discharge Data Allergies Allergy/AdvReac Type Severity Reaction Status Date / Time bee venom protein (honey bee) Allergy Severe SWELLING Verified 03/02/20 01:44 lisinopril Allergy Intermediate FACE Verified 03/02/20 01:44 SWELLING potato Allergy Intermediate BBQ chips Verified 03/02/20 01:44 - facial swelling metronidazole Allergy Mild FACE Verified 03/02/20 01:44 SWELLING strawberry Allergy Mild HIVES Verified 03/02/20 01:44 alprazolam Allergy Unknown RED FACE, Verified 03/02/20 01:44 FACE SWELLING lactose AdvReac Intermediate VOMTING Verified 03/02/20 01:44 DIARRHEA ABDOMINAL PAIN-LACTOSE INTOLERANCE prednisone AdvReac Mild AGGRESSIVE Verified 03/02/20 01:44 BEHAVIOR colesevelam AdvReac Unknown unknown Verified 03/02/20 01:44 lithium AdvReac Unknown jitters Verified 03/02/20 01:44 Consultations 03/02/20 02:26 ED Decision to Admit Stat 03/02/20 04:48 Consult Cardiology Routine CXR: FINDINGS: Cardiomegaly is unchanged. Note is made of a prosthetic mitral valve. A right anterior abdominal wall defect is again noted. Interstitial thickening is unchanged and suggest pulmonary edema. No lobar consolidation is present. Minimal bibasilar opacities favor atelectasis. IMPRESSION: Mild pulmonary edema, similar to prior exam. Hospital Course (1) Atrial fibrillation with rapid ventricular response: Recurrent Atrial Fibrillation hx atrial fibrillation/atrial flutter status post ablation on Coumadin Likely secondary to missed doses home beta-mana medication INR therapeutic --Patient placed on IV Cardizem drip Heart rate improved, less than 100 Evaluated by [facility] room attendants Dr. Jaquez offered rhythm control versus rate control treatment strategies for her atrial fibrillation and discussed possible cardioversion She states that she prefer to hold off on the cardioversion for now since she is feeling back to normal and would like to go home. Recommend to resume usual metoprolol tartrate and diltiazem p.o., Coumadin Follow-up with patient in cardiology clinic in 1 to 2 weeks Advised patient to regularly take her medications, also home health services arranged for patient Possible mild CHF exacerbation secondary to above hx chronic diastolic heart failure (EF 55 to 59%, TTE 2018) --Given IV Lasix Creatinine 1.4, magnesium 1.7 Resume usual Lasix p.o. Repeat basic metabolic profile and magnesium on follow-up with PCP Chest pain, troponin elevation in the setting of kidney dysfunction -- [employer] recommendation: Cardiac enzymes, EKG and echocardiogram are all unremarkable for signs of ischemia. likely from tachycardia Follow-up with cardiology clinic next week, possible Lexiscan stress test if chest pain persists History chronic respiratory failure secondary to COPD/pulmonary hypertension on home O2 DARIUS on BiPAP Pulmonary status at baseline HTN, stable hx CVA as per records chronic pain on narcotics DM2 insulin requiring, suboptimal control as of recent outpatient hemoglobin A1c of 9.2 last November 2019 anxiety/mood disorder, at baseline --Stable Disposition Discharge to home, with home health services Follow-up with PCP next week per discharge instructions Follow-up with [facility] cardiology clinic in 1 to 2 weeks, clinic will call the patient for the appointment Plan of care discussed with patient in detail and at length All questions were answered She is understanding, agreeable, comfortable with the plan of care Total Time Total Time Spent Total Time Spent (In Minutes): 50 minutes Discharge Plan Discharge Items Patient Disposition: Home - Home Health Services Reason For Visit: RECURRENT AFIB Discharge Diagnosis: Atrial fibrillation with rapid ventricular response Activity: Resume your previous activity Activity Comment: Gradually as tolerated Lifting: None Exercise/Sports: None Driving/Machine Use: No driving Non-emergency contact: Primary Care Provider and [employer] Call non-emergency contact if: you have any medication questions, your symptoms worsen and you have a fever Follow-up/Referrals: Mikey Jaquez DO [Physician] - Manoj Goins DO [Primary Care Provider] - 03/09/20 11:20 am Diet: Heart Healthy Addtl Attending Provider Instructions: Your new medication is magnesium 400 mg twice a day x1 week. Stop this medication if you are developed diarrhea. Please resume your other usual medications. Follow instructions carefully and take medications daily as directed. Call primary care physician or return to the ER immediately if with recurrence or worsening of symptoms. Follow-up with Dr. Goins as outlined above. Follow-up with [facility] room attendants Dr. Mikey Jaquez in 1 to 2 weeks. His clinic will be calling you for the appointment schedule. Pending Studies at Discharge: Yes Studies:: Repeat blood work including basic metabolic panel and magnesium level on follow-up with primary care physician next week. Stand-Alone Forms: [facility] [employer], Smoking Cessation Medications and DC Order Prescriptions: New magnesium oxide 400 mg (241.3 mg magnesium) tablet 400 mg PO BID Qty: 14 RF: 0 Continued albuterol sulfate [Proventil HFA] 90 mcg/actuation HFA aerosol inhaler 2 puffs INH Q6H PRN (Reason: shortness of breath or wheezing) Qty: 18 RF: 3 amitriptyline 50 mg Tablet 50 mg PO HS RF: 0 gabapentin 800 mg Tablet 800 mg PO BID RF: 0 amlodipine 10 mg Tablet 10 mg PO QAM RF: 0 diclofenac sodium 1 % Gel 2 g TOPICAL QID PRN (Reason: Pain) RF: 0 alendronate 70 mg tablet 70 mg PO WE RF: 0 warfarin 5 mg tablet 7.5 mg PO MOFR RF: 0 diltiazem HCl 120 mg capsule,extended release 24hr 120 mg PO QAM RF: 0 potassium chloride 10 mEq tablet extended release 10 meq PO TID RF: 0 pantoprazole 40 mg tablet,delayed release (DR/EC) 40 mg PO DAILY RF: 0 doxycycline hyclate 100 mg capsule 100 mg PO BID RF: 0 Lantus U-100 Insulin 100 unit/mL solution 16 unit SUBCUT BID RF: 0 metoprolol tartrate 50 mg Tablet 100 mg PO BID Qty: 120 RF: 2 multivitamin Tablet 1 tab PO QAM RF: 0 furosemide 40 mg Tablet 80 mg PO BID RF: 0 atorvastatin 40 mg Tablet 40 mg PO HS RF: 0 fentanyl [Duragesic] 50 mcg/hr Patch 72 Hour 1 patch TRANSDERMAL Q72H RF: 0 cetirizine 10 mg Tablet 10 mg PO HS RF: 0 venlafaxine 150 mg Capsule,Extended Release 24hr 150 mg PO QAM RF: 0 ondansetron 8 mg Tablet,Disintegrating 8 mg PO BID PRN (Reason: Nausea) RF: 0 methocarbamol 750 mg Tablet 750 mg PO TID RF: 0 calcitriol 0.5 mcg Capsule 0.5 mcg PO QAM RF: 0 warfarin 5 mg Tablet 5 mg PO SUTUWETHSA RF: 0 epinephrine [EpiPen] 0.3 mg/0.3 mL Auto-Injector 0.3 mg IM Q3H PRN (Reason: Allergic Reaction) RF: 0 docusate sodium 100 mg Tablet 100 mg PO DAILY PRN (Reason: Constipation) RF: 0 Spiriva with HandiHaler 18 mcg Capsule, W/Inhalation Device 1 cap INHALATION QAM RF: 0 cholecalciferol (vitamin D3) [Vitamin D3] 1,000 unit Tablet 1,000 unit PO QAM RF: 0 venlafaxine 75 mg Capsule,Extended Release 24hr 75 mg PO QAM RF: 0 trazodone 100 mg Tablet 200 mg PO HS RF: 0 zolpidem 5 mg Tablet 5 mg PO HS PRN (Reason: Insomnia) RF: 0 oxycodone 5 mg Tablet 10 mg PO Q6H PRN (Reason: Pain) RF: 0 Discharge Orders: Discharge Order (Routine); Ordered 03/02/20 Ordered By: Abdelrahman Hollins/Other Patient Handouts: Long-Term Complications of Diabetes, Healthy Meals for Diabetes, Diabetes: The Benefits of Exercise, Diabetes: Living Your Life, Managing Diabetes: The A1C Test Admission Data Admit Date/Time: 03/02/20 03:07 Attending Provider: Abdelrahman Moreau Admit Provider: Jn Burns Primary Care Provider: Manoj Goins Other Providers: Jn Burns ; [place] Underwood ; Margie,Home Care Other Interventions: Discharge Summary Assessment (RN) Last Done: 03/02/20 14:15 DC Date/Time DO NOT enter until pt leaves facility: 03/02/20 14:50
== END 2020-03-02 14:50 | disposition home health service (06) | DRG 308 ==
LOC: ED 00:52 → 2S 03:07

== ENCOUNTER 2020-03-24 14:17 | Inpatient (IN) ==
[2020-03-24] MEDS ORDERED: methylPREDNISolone 125 MG/2 ML VIAL IV STA (14:31)
[2020-03-24] MEDS ORDERED: ALBUTEROL HFA 8 GM INHALER INH ONE (14:31)
--- NOTE | 2020-03-24 14:46 | Emergency Department Note ---
Impression & Plan SOB (shortness of breath), Substernal chest pain, Productive cough ED Provider Note NAME: ALVARO ROBERTS AGE: 64 SEX: F ARRIVES VIA: Ambulance INFORMANT: [Patient] EMS ED PROVIDER(S): Ector Howell MD CHIEF COMPLAINT: Shortness of breath PLAN: Disposition: Admitted Condition: [Good] MEDICAL DECISION MAKING: Patient presented to the emergency department because of intermittent chest pain, shortness of breath, fevers and nausea. She was placed in respiratory isolation. COVID testing was performed given the constellation of symptoms although the patient is at lower risk based on history. ECG did not show any acute ischemic change. Patient was treated with Solu-Medrol and 6 puffs of an albuterol MDI. Chest imaging, blood work, cultures and lactate were performed. Pulmonary edema on chest x-ray. Mild elevation of BNP. CBC and chemistry panel otherwise unremarkable. Troponin negative. COVID testing pending. The patient was treated with IV Lasix. Urinalysis was unremarkable. The patient did note dysuria. She was having nausea. She was also having generalized pain. She was treated with morphine and Zofran. I discussed further management in the hospital given her chronic disability and medical status. The patient was in agreement. [facility] The patient was evaluated in the ER for further management. Triage Nursing notes reviewed and agree them. [Additional history obtained from] EMS [Prior medical records reviewed] recent hospitalization in February Vital Signs: reviewed and remarkable for [no significant abnormalities] Differential diagnosis: Reactive airway disease, pneumonia, pneumothorax, COPD, CHF, infections, cardiac ischemia, pulmonary embolism, musculoskeletal, gastrointestinal, as well as other pathologies. ER treatment provided: Albuterol MDI 6 puffs Solu-Medrol Diagnostics interpreted by me: ECG: Rate: 63 Rhythm:Normal sinus Alvin:Normal QRS: Right bundle branch block ST segements:No elevation or depression Other:No PACs or PVCs Cardiac Monitoring: Cardiac monitoring ordered by me: The patient was placed on continuous cardiac monitoring and observed. It revealed a normal sinus rhythm at 68 beats per minute without ectopy or evidence of dysrhythmia. Laboratory studies: [See below] unremarkable CBC and chemistry panel. BNP mildly elevated. Troponin negative. Imaging studies: Pulmonary edema noted on chest x-ray. Consultation(s): [facility] hospitalist service HPI:The patient is a 64 year old female who presents to the Emergency Room with complaints of shortness of breath. This started the last few days and is escalating. The patient also notes the following associated symptoms, productive cough of yellow sputum, intermittent fevers, occasional nausea, and intermittent chest pains. The patient states that she has been getting intermittent chest pain since yesterday. She states they last upwards of 10 minutes and are associated with nausea. Home health did visit with the patient today and were concerned. The patient has found no relieving factors. Current pain is rated as 0/10. Patient has a history of COPD and pneumonia. She is concerned that this feels similar to pneumonia. Pt denies LOC, headache, chills, diaphoresis, visual changes, neck pain, vomiting, abdominal pain, back pain, melena, hematochezia, urinary symptoms, numbness, weakness, lymphadenopathy, rash, or other complaints. ROS: See above HPI for pertinent positives & negatives. A total of [10] systems reviewed and were otherwise negative. PAST MEDICAL HISTORY:[See Below] COPD, chronic oxygen use, A. fib PAST SURGICAL HISTORY:[See Below] FAMILY HISTORY:[See Below] SOCIAL HISTORY:[See Below] lives with family HOME MEDICATIONS:[See Below] ALLERGIES:[See Below] VITALS:[See Below] PHYSICAL EXAMINATION: GENERAL: Awake, alert, mildly dyspneic-appearing, in no distress HENT: Normocephalic, atraumatic. Oropharynx unremarkable. EYES: Normal conjunctiva. Sclera non-icteric. NECK: Inspection normal. Non-tender. Supple. No nuchal rigidity. FROM. No masses. RESPIRATORY: Coarse breath sounds bilaterally, increased rhonchi on the right side. No wheezes. No rales. Mild increased respiratory effort. CARDIAC: Normal rate. Normal rhythm. No murmurs. No rubs. Extremities warm and well perfused. Pulses equal. No JVD. GI: Soft, non-distended. No tenderness to palpation. No rebound or guarding. No masses. RECTAL: Deferred. MUSCULOSKELETAL: Atraumatic. Chest examination reveals no tenderness. The back is symmetrical on inspection without obvious abnormality. There is no CVA tenderness to palpation. No joint edema. LOWER EXTREMITIES: Calves are equal size bilaterally and non-tender. No edema. Chronic venous discoloration. NEURO: Normal sensorium. No sensory or motor deficits noted. SKIN: No rash or jaundice noted. ED COURSE: [Critical Care:] [None] Ector Howell MD Past Med/Surg History Social History Preferred Language: Lithuanian Communication Ability: Effective Visual Impairment: No Limitations Editing Internship Required: No Beliefs That Will Affect Care: None marital status: / Current Living Situation: Alone Current Living Situation Comment: caregiver helps Feels Safe at Home: Yes Smoking Status: Current every day smoker Tobacco Type: cigarettes ; Cigarettes Per Day: 10 ; Second Hand Exposure: No ; Hx Alcohol Use: No Hx Substance Use: No Allergies Allergies Allergy/AdvReac Type Severity Reaction Status Date / Time bee venom protein (honey bee) Allergy Severe SWELLING Verified 03/02/20 01:44 lisinopril Allergy Intermediate FACE Verified 03/02/20 01:44 SWELLING potato Allergy Intermediate BBQ chips Verified 03/02/20 01:44 - facial swelling metronidazole Allergy Mild FACE Verified 03/02/20 01:44 SWELLING strawberry Allergy Mild HIVES Verified 03/02/20 01:44 alprazolam Allergy Unknown RED FACE, Verified 03/02/20 01:44 FACE SWELLING lactose AdvReac Intermediate VOMTING Verified 03/02/20 01:44 DIARRHEA ABDOMINAL PAIN-LACTOSE INTOLERANCE prednisone AdvReac Mild AGGRESSIVE Verified 03/02/20 01:44 BEHAVIOR colesevelam AdvReac Unknown unknown Verified 03/02/20 01:44 lithium AdvReac Unknown jitters Verified 03/02/20 01:44 Home Meds Home Medications Medication Instructions Recorded Confirmed Spiriva with HandiHaler 1 cap INHALATION QAM 06/19/18 03/24/20 atorvastatin 40 mg PO HS 06/19/18 03/24/20 calcitriol 0.5 mcg PO QAM 06/19/18 03/24/20 cetirizine 10 mg PO HS 06/19/18 03/24/20 cholecalciferol (vitamin D3) 1,000 unit PO QAM 06/19/18 03/24/20 [Vitamin D3] docusate sodium 100 mg PO DAILY PRN 06/19/18 03/24/20 epinephrine [EpiPen] 0.3 mg IM DIRECTED PRN 06/19/18 03/24/20 fentanyl 50 mcg TRANSDERMAL [id number] 06/19/18 03/24/20 furosemide 80 mg PO BID 06/19/18 03/24/20 methocarbamol 750 mg PO TID 06/19/18 03/24/20 multivitamin 1 tab PO QAM 06/19/18 03/24/20 ondansetron 8 mg PO BID PRN 06/19/18 03/24/20 venlafaxine 150 mg PO QAM 06/19/18 03/24/20 warfarin 5 mg PO 5XWK 06/19/18 03/24/20 oxycodone 10 mg PO Q6H PRN 09/14/18 03/24/20 trazodone 200 mg PO HS 09/14/18 03/24/20 venlafaxine 75 mg PO QAM 09/14/18 03/24/20 zolpidem 5 mg PO HS 09/14/18 03/24/20 amitriptyline 50 mg PO HS 05/28/19 03/24/20 amlodipine 10 mg PO QAM 05/28/19 03/24/20 diclofenac sodium 2 g TOPICAL QID PRN 05/28/19 03/24/20 gabapentin 800 mg PO BID 05/28/19 03/24/20 alendronate 70 mg tablet 70 mg PO WK tab 06/10/19 03/24/20 warfarin 7.5 mg PO 2XWK 09/19/19 03/24/20 Lantus U-100 Insulin 18 unit SUBCUT BID 03/02/20 03/24/20 diltiazem HCl 120 mg PO QAM 03/02/20 03/24/20 pantoprazole 40 mg PO QAM 03/02/20 03/24/20 potassium chloride 10 meq PO TID 03/02/20 03/24/20 albuterol sulfate [Proventil HFA] 2 puffs INH Q6H PRN 03/24/20 03/24/20 levalbuterol HCl 1.25 mg INHALATION Q4H PRN 03/24/20 03/24/20 Previous Rx's Medication Instructions Recorded metoprolol tartrate 100 mg PO BID #120 tab 03/02/20 Results & Data (ED) Vital Signs Vital Signs - 24 hr 03/24/20 14:45 03/24/20 14:46 03/24/20 15:15 Temperature 36.7 C Temperature Source Oral Pulse Rate 63 58 L 60 Pulse Rate from SpO2 Sensor 63 62 Respiratory Rate 14 20 16 Blood Pressure 154/77 H Blood Pressure Mean 102 Pulse Oximetry 98 95 Oxygen Delivery Method Nasal Cannula Oxygen Flow Rate 2 3 Sepsis Recent Fever Within 48 Hours No Sepsis New/Unexplained Change in Mental Status No Sepsis Action Taken by Nursing No Action Required 03/24/20 15:30 03/24/20 15:41 03/24/20 15:45 Temperature Temperature Source Pulse Rate 75 58 L Pulse Rate from SpO2 Sensor 70 59 L Respiratory Rate 20 22 Blood Pressure Blood Pressure Mean Pulse Oximetry 94 95 95 Oxygen Delivery Method Nasal Cannula Oxygen Flow Rate 3 Sepsis Recent Fever Within 48 Hours Sepsis New/Unexplained Change in Mental Status Sepsis Action Taken by Nursing 03/24/20 16:00 03/24/20 16:15 03/24/20 16:30 Temperature Temperature Source Pulse Rate 59 L 62 65 Pulse Rate from SpO2 Sensor 57 L 57 L Respiratory Rate 17 14 13 Blood Pressure 152/73 H 144/95 H Blood Pressure Mean 99 129 Pulse Oximetry 95 96 Oxygen Delivery Method Nasal Cannula Oxygen Flow Rate 3 Sepsis Recent Fever Within 48 Hours Sepsis New/Unexplained Change in Mental Status Sepsis Action Taken by Nursing 03/24/20 16:45 03/24/20 17:01 03/24/20 17:15 Temperature Temperature Source Pulse Rate 58 L 61 64 Pulse Rate from SpO2 Sensor 60 60 63 Respiratory Rate 16 22 18 Blood Pressure 133/55 L Blood Pressure Mean 75 Pulse Oximetry 95 96 96 Oxygen Delivery Method Nasal Cannula Nasal Cannula Nasal Cannula Oxygen Flow Rate 3 3 3 Sepsis Recent Fever Within 48 Hours Sepsis New/Unexplained Change in Mental Status Sepsis Action Taken by Nursing 03/24/20 17:31 03/24/20 17:45 03/24/20 18:00 Temperature Temperature Source Pulse Rate 61 63 69 Pulse Rate from SpO2 Sensor 63 63 69 Respiratory Rate 24 20 25 H Blood Pressure 175/75 H Blood Pressure Mean 94 Pulse Oximetry 96 96 94 Oxygen Delivery Method Nasal Cannula Nasal Cannula Oxygen Flow Rate 3 3 Sepsis Recent Fever Within 48 Hours Sepsis New/Unexplained Change in Mental Status Sepsis Action Taken by Nursing 03/24/20 18:15 03/24/20 18:30 Temperature Temperature Source Pulse Rate 84 76 Pulse Rate from SpO2 Sensor 84 77 Respiratory Rate 20 20 Blood Pressure 158/70 H Blood Pressure Mean 98 Pulse Oximetry 95 Oxygen Delivery Method Nasal Cannula Nasal Cannula Oxygen Flow Rate 3 3 Sepsis Recent Fever Within 48 Hours Sepsis New/Unexplained Change in Mental Status Sepsis Action Taken by Nursing Laboratory Data Result diagrams: 03/24/20 15:23 03/24/20 15:23 Lab Results 03/24/20 03/24/20 03/24/20 Range/Units 15:23 15:23 15:23 WBC 8.20 (4.8-10.8) K/uL RBC 4.29 (4.2-5.4) M/uL Hgb 13.3 (12.0-16.0) g/dL Hct 39.2 (37-47) % MCV 91.4 (80-100) fL MCH 31.0 (25-34) pg MCHC 33.9 (32-36) g/dL RDW Std Deviation 44.4 (36.4-46.3) fL RDW Coeff of King 13.4 (11.5-14.5) % Plt Count 265 (130-400) K/uL MPV 9.7 (7.4-10.4) fL Immature Gran % (Auto) 0.2 % Neut % (Auto) 62.6 % Lymph % (Auto) 27.6 % [place] % (Auto) 8.0 % Eos % (Auto) 1.5 % Baso % (Auto) 0.1 % Neut # (Auto) 5.13 (1.4-6.5) K/uL Lymph # (Auto) 2.26 (1.2-3.4) K/uL [place] # (Auto) 0.66 H (0.11-0.59) K/uL Eos # (Auto) 0.12 (0-0.5) K/uL Baso # (Auto) 0.01 (0-0.2) K/uL Immature Gran # (Auto) 0.02 (0.00-0.02) K/uL ESR (0-21) mm/hr PT 23.1 H (9.0-12.0) Seconds INR 2.3 H (0.9-1.1) APTT 40.4 H (21.0-31.0) Seconds PTT Ratio 1.4 Sodium 139 (136-145) mmol/L Potassium 4.3 (3.5-5.1) mmol/L Chloride 101 (98-107) mmol/L Carbon Dioxide 33 H (21-32) mmol/L Anion Gap 5.0 (3-11) BUN 18 (7-18) mg/dl Creatinine 1.21 H (0.6-1.2) mg/dl Est Cr Clr Drug Dosing 54.4 ml/min Est GFR ( Amer) 55.1 Est GFR (Non-Af Amer) 47.6 BUN/Creatinine Ratio 15.2 (10-20) Glucose 106 H (70-99) mg/dl Lactate (0.4-2.0) mmol/L Calcium 9.1 (8.5-10.1) mg/dl Magnesium 2.0 (1.8-2.4) mg/dl Total Bilirubin 0.3 (0.2-1) mg/dl AST 20 (15-37) U/L ALT 28 (12-78) U/L Alkaline Phosphatase 84 (45-117) U/L Troponin I < 0.015 (0-0.045) ng/ml C-Reactive Protein 0.32 H (0-0.29) mg/dl NT-Pro-B Natriuret Pep 938 H (0-900) pg/ml Total Protein 7.3 (6.4-8.2) gm/dl Albumin 2.9 L (3.4-5.0) gm/dl Globulin 4.4 H (2.5-4.0) gm/dl Albumin/Globulin Ratio 0.7 L (0.9-2) Procalcitonin (0-0.5) ng/ml Urine Color Urine Appearance (Clear) Urine pH (4.5-7.5) Ur Specific Warner (1.000-1.030) Urine Protein (Negative) Urine Glucose (UA) (Negative) Urine Ketones (Negative) Urine Blood (Negative) Urine Nitrite (Negative) Urine Bilirubin (Negative) Urine Urobilinogen (Negative) Ur Leukocyte Esterase (Negative) Urine WBC (Auto) (0-5) /hpf Urine RBC (Auto) (0-4) /hpf U Hyaline Cast (Auto) (0-5) /lpf U Epithel Cells (Auto) (0-5) /lpf Urine Bacteria (Auto) (Negative) 03/24/20 03/24/20 03/24/20 Range/Units 15:23 15:25 15:25 WBC (4.8-10.8) K/uL RBC (4.2-5.4) M/uL Hgb (12.0-16.0) g/dL Hct (37-47) % MCV (80-100) fL MCH (25-34) pg MCHC (32-36) g/dL RDW Std Deviation (36.4-46.3) fL RDW Coeff of King (11.5-14.5) % Plt Count (130-400) K/uL MPV (7.4-10.4) fL Immature Gran % (Auto) % Neut % (Auto) % Lymph % (Auto) % [place] % (Auto) % Eos % (Auto) % Baso % (Auto) % Neut # (Auto) (1.4-6.5) K/uL Lymph # (Auto) (1.2-3.4) K/uL [place] # (Auto) (0.11-0.59) K/uL Eos # (Auto) (0-0.5) K/uL Baso # (Auto) (0-0.2) K/uL Immature Gran # (Auto) (0.00-0.02) K/uL ESR 47 H (0-21) mm/hr PT (9.0-12.0) Seconds INR (0.9-1.1) APTT (21.0-31.0) Seconds PTT Ratio Sodium (136-145) mmol/L Potassium (3.5-5.1) mmol/L Chloride (98-107) mmol/L Carbon Dioxide (21-32) mmol/L Anion Gap (3-11) BUN (7-18) mg/dl Creatinine (0.6-1.2) mg/dl Est Cr Clr Drug Dosing ml/min Est GFR ( Amer) Est GFR (Non-Af Amer) BUN/Creatinine Ratio (10-20) Glucose (70-99) mg/dl Lactate 0.9 (0.4-2.0) mmol/L Calcium (8.5-10.1) mg/dl Magnesium (1.8-2.4) mg/dl Total Bilirubin (0.2-1) mg/dl AST (15-37) U/L ALT (12-78) U/L Alkaline Phosphatase (45-117) U/L Troponin I (0-0.045) ng/ml C-Reactive Protein Cancelled (0-0.29) mg/dl NT-Pro-B Natriuret Pep (0-900) pg/ml Total Protein (6.4-8.2) gm/dl Albumin (3.4-5.0) gm/dl Globulin (2.5-4.0) gm/dl Albumin/Globulin Ratio (0.9-2) Procalcitonin (0-0.5) ng/ml Urine Color Urine Appearance (Clear) Urine pH (4.5-7.5) Ur Specific Warner (1.000-1.030) Urine Protein (Negative) Urine Glucose (UA) (Negative) Urine Ketones (Negative) Urine Blood (Negative) Urine Nitrite (Negative) Urine Bilirubin (Negative) Urine Urobilinogen (Negative) Ur Leukocyte Esterase (Negative) Urine WBC (Auto) (0-5) /hpf Urine RBC (Auto) (0-4) /hpf U Hyaline Cast (Auto) (0-5) /lpf U Epithel Cells (Auto) (0-5) /lpf Urine Bacteria (Auto) (Negative) 03/24/20 03/24/20 Range/Units 15:25 15:57 WBC (4.8-10.8) K/uL RBC (4.2-5.4) M/uL Hgb (12.0-16.0) g/dL Hct (37-47) % MCV (80-100) fL MCH (25-34) pg MCHC (32-36) g/dL RDW Std Deviation (36.4-46.3) fL RDW Coeff of King (11.5-14.5) % Plt Count (130-400) K/uL MPV (7.4-10.4) fL Immature Gran % (Auto) % Neut % (Auto) % Lymph % (Auto) % [place] % (Auto) % Eos % (Auto) % Baso % (Auto) % Neut # (Auto) (1.4-6.5) K/uL Lymph # (Auto) (1.2-3.4) K/uL [place] # (Auto) (0.11-0.59) K/uL Eos # (Auto) (0-0.5) K/uL Baso # (Auto) (0-0.2) K/uL Immature Gran # (Auto) (0.00-0.02) K/uL ESR (0-21) mm/hr PT (9.0-12.0) Seconds INR (0.9-1.1) APTT (21.0-31.0) Seconds PTT Ratio Sodium (136-145) mmol/L Potassium (3.5-5.1) mmol/L Chloride (98-107) mmol/L Carbon Dioxide (21-32) mmol/L Anion Gap (3-11) BUN (7-18) mg/dl Creatinine (0.6-1.2) mg/dl Est Cr Clr Drug Dosing ml/min Est GFR ( Amer) Est GFR (Non-Af Amer) BUN/Creatinine Ratio (10-20) Glucose (70-99) mg/dl Lactate (0.4-2.0) mmol/L Calcium (8.5-10.1) mg/dl Magnesium (1.8-2.4) mg/dl Total Bilirubin (0.2-1) mg/dl AST (15-37) U/L ALT (12-78) U/L Alkaline Phosphatase (45-117) U/L Troponin I (0-0.045) ng/ml C-Reactive Protein (0-0.29) mg/dl NT-Pro-B Natriuret Pep (0-900) pg/ml Total Protein (6.4-8.2) gm/dl Albumin (3.4-5.0) gm/dl Globulin (2.5-4.0) gm/dl Albumin/Globulin Ratio (0.9-2) Procalcitonin < 0.05 (0-0.5) ng/ml Urine Color Yellow Urine Appearance Clear (Clear) Urine pH 6.5 (4.5-7.5) Ur Specific Warner 1.008 (1.000-1.030) Urine Protein Negative (Negative) Urine Glucose (UA) Negative (Negative) Urine Ketones Negative (Negative) Urine Blood Trace H (Negative) Urine Nitrite Negative (Negative) Urine Bilirubin Negative (Negative) Urine Urobilinogen Negative (Negative) Ur Leukocyte Esterase Negative (Negative) Urine WBC (Auto) 0 (0-5) /hpf Urine RBC (Auto) 0-4 (0-4) /hpf U Hyaline Cast (Auto) 0 (0-5) /lpf U Epithel Cells (Auto) 0-5 (0-5) /lpf Urine Bacteria (Auto) Negative (Negative) Administered Medications Ceftriaxone Sodium 1,000 mg/ (Dextrose) 50 mls @ 100 mls/hr IV Q24H [facility]; Protocol Stop: 03/31/20 18:45 Last Infusion: 03/24/20 21:17 Dose: 0 mls/hr Documented by: [id number] Admin: 03/24/20 20:07 Dose: 100 mls/hr Documented by: [id number] Discontinued Medications Albuterol (Ventolin Hfa) 6 puffs INH NOW ONE Stop: 03/24/20 14:32 Last Admin: 03/24/20 14:45 Dose: 6 puffs Documented by: [id number] Furosemide (Lasix) 60 mg IV NOW STA Stop: 03/24/20 17:00 Last Admin: 03/24/20 17:53 Dose: 60 mg Documented by: [id number] Sodium Chloride (Nss 1000ml) 1,000 mls @ 150 mls/hr IV .[id number] JORGE Stop: 04/23/20 14:44 Last Admin: 03/24/20 15:58 Dose: 150 mls/hr Documented by: [id number] Methylprednisolone (Solumedrol) 125 mg IV NOW STA Stop: 03/24/20 14:32 Last Admin: 03/24/20 14:45 Dose: 125 mg Documented by: [id number] Morphine Sulfate (Morphine Sulfate) 4 mg IV NOW STA Stop: 03/24/20 15:43 Last Admin: 03/24/20 15:58 Dose: 4 mg Documented by: [id number] Ondansetron HCl (Zofran) 4 mg IV NOW STA Stop: 03/24/20 15:43 Last Admin: 03/24/20 15:58 Dose: 4 mg Documented by: [id number] Discharge Plan Visit Data Chief Complaint: Shortness of Breath/Dyspnea ED Provider: Ector Howell Discharge Problem: SOB (shortness of breath), Substernal chest pain, Productive cough Discharge Instructions Interventions: ED Discharge Assessment Last Done: 03/24/20 20:45
[2020-03-24 15:34] LABS: Basophils # (auto) 0.01 K/uL (0-0.2); Basophils % (auto) 0.1 %; Eosinophils # (auto) 0.12 K/uL (0-0.5); Eosinophils % (auto) 1.5 %; Hematocrit (blood only) 39.2 % (37-47); Hemoglobin 13.3 g/dL (12.0-16.0); Immature Granulocytes # (auto) 0.02 K/uL (0.00-0.02); Immature Granulocytes % (auto) 0.2 %; Lymphocytes # (auto) 2.26 K/uL (1.2-3.4); Lymphocytes % (auto) 27.6 %; Mean Corpuscular Hgb Conc 33.9 g/dL (32-36); Mean Corpuscular Volume 91.4 fL (80-100); Mean Platelet Volume 9.7 fL (7.4-10.4); Monocytes # (auto) 0.66 K/uL (0.11-0.59); Neutrophils # (auto) 5.13 K/uL (1.4-6.5); Neutrophils % (auto) 62.6 %; Platelet Count 265 K/uL (130-400); RDW Coefficient of Variation 13.4 % (11.5-14.5); RDW Standard Deviation 44.4 fL (36.4-46.3); Red Blood Count 4.29 M/uL (4.2-5.4)
[2020-03-24] MEDS ORDERED: ONDANSETRON INJ 2 MG/ML 2 ML VIAL IV STA (15:42)
[2020-03-24] MEDS ORDERED: MoRPHine SULFATE 4 MG/ML 1 ML CARP\\VIAL IV STA (15:42)
[2020-03-24 15:45] LABS: INR 2.3 (0.9-1.1); Partial Thromboplastin Ratio 1.4; Partial Thromboplastin Time 40.4 Seconds (21.0-31.0); Prothrombin Time 23.1 Seconds (9.0-12.0)
[2020-03-24 15:53] LABS: Alanine Aminotransferase 28 U/L (12-78); Albumin Level 2.9 gm/dl (3.4-5.0); Aspartate Aminotransferase 20 U/L (15-37); BUN Creatinine Ratio 15.2 (10-20); Blood Urea Nitrogen 18 mg/dl (7-18); Calcium 9.1 mg/dl (8.5-10.1); Carbon Dioxide 33 mmol/L (21-32); Chloride 101 mmol/L (98-107); Creatinine Clr Calc Pharmacy 54.4 ml/min; Est GFR (African American) 55.1; Est GFR (Non-African American) 47.6; Glucose 106 mg/dl (70-99); Potassium 4.3 mmol/L (3.5-5.1); Sodium 139 mmol/L (136-145)
[2020-03-24] MEDS: SODIUM CHLORIDE 0.9% 1000ML 1,000 ML IV SCH ×2 (15:58→22:18)
[2020-03-24 15:59] LABS: Albumin Globulin Ratio 0.7 (0.9-2); Alkaline Phosphatase 84 U/L (45-117); Bilirubin,Total 0.3 mg/dl (0.2-1); Globulin 4.4 gm/dl (2.5-4.0); NT Pro B Type Natriuretic Pept 938 pg/ml (0-900); Total Protein 7.3 gm/dl (6.4-8.2); Troponin I < 0.015 ng/ml (0-0.045)
[2020-03-24 16:16] LABS: Appearance Urine Clear (Clear); Bacteria Urine Automated Negative (Negative); Bilirubin Urine Negative (Negative); Blood Urine Trace (Negative); Cast Urine Automated 0 /lpf (0-5); Color Urine Yellow; Epithelial Cell Urine Auto 0-5 /lpf (0-5); Glucose Urine UA Negative (Negative); Ketones Urine Negative (Negative); Leukocyte Esterase Urine Negative (Negative); Nitrite Urine Negative (Negative); Protein Urine Negative (Negative); RBC Urine Automated 0-4 /hpf (0-4); Specific Gravity Urine 1.008 (1.000-1.030); Urobilinogen Urine Negative (Negative); WBC Urine Automated 0 /hpf (0-5); pH Urine 6.5 (4.5-7.5)
--- NOTE | 2020-03-24 16:49 | XRay Report ---
XR chest 1V portable CLINICAL HISTORY: SEPSIS COMPARISON STUDY: 03/02/2020 FINDINGS: The heart is enlarged. There is a valvular prosthesis. 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 There is diffuse elevation of interstitium consistent with a pulmonary edema pattern. Th ere is no focal pulmonary consolidation.[ IMPRESSION: Persistent pulmonary edema pattern. ACT 112: Negative or not required by law. Electronically signed by: Cesar Lopez M.D. 03/24/2020 4:48 PM
[2020-03-24] MEDS ORDERED: FUROSEMIDE 40 MG/4 ML VIAL IV STA ×2 (16:59→21:31)
[2020-03-24] MEDS ORDERED: cefTRIAXone SODIUM 1,000 MG in DEXTROSE 5% 50 ML IV SCH (18:46)
[2020-03-24 19:07] LABS: C Reactive Protein 0.32 mg/dl (0-0.29)
--- NOTE | 2020-03-24 19:16 | History & Physical Report ---
Date of Service March 24, 2020 Assessment & Plan (1) Substernal chest pain: (2) Productive cough: Chest pain, cough, shortness of breath, subjective fevers. Suggestive of possible Pneumonia/COPD Exacerbation CXR does show some edema Will start ceft + doxy for now Get procalcitonin COVID 19 test already sent BNP is 938 (lower than a month ago when it was 1242) Has chronic diastolic heart failure. Does not appear to be volume overloaded clinically on exam Continue iv lasix 80 bid and monitor (3) Chronic respiratory failure with hypoxia, on home oxygen therapy: Has COPD, DARIUS on BIPAP Currently at baseline O2 requirement Still smokes about 10cig/day Counselled on need for smoking cessation. Patient stated she is not interested (4) Obstructive sleep apnea treated with BiPAP: Continue BIPAP HS (5) Insomnia: Continue home meds (6) Chronic pain Continue home narcotics Confirmed on PDMP. Patient will benefit from gradual wean off if possible due to multiple meds that could pose risk (7) DM2 Continue home lantus 18U BID accucheck and ISS per protocol carb controlled diet (8) Hypertension Continue home antihypertensives (9) Atrial fibrillation Paroxysmal as patient is currently sinus Continue home metoprolol Continue warfarin INR currently therapeutic (10) Mood disorder Continue home meds DVT ppx - on warfarin History of Present Illness 64 yo F with multiple medical problems as detailed below presented with central chest pain that started 2 days ago. Patient described chest pain as pressure and occasionally sharp, not referred, not associated with exertion, intermittent, not associated with movement or deep breaths Associated with nausea, diaphoresis, some shortness of breath . Reports chronic cough which has been yellowish Reported chills and subjective fevers, stated temp was in 100F. Denied any wheezing, worsening of chronic orthopnea, leg swelling or increased oxygen requirement above baseline of 3l/min Denied any vomiting, abd pain, diarrhea Denied any dysuria, frequency, urgency and incontinence Denied any headache, dizziness, blurry vision Denied any melena, hematochezia,BRBPR Denied contact with any known COVID, recent travels. Reports only contact with home health aide Primary Care Provider: Manoj Goins, Allergies Allergy/AdvReac Type Severity Reaction Status Date / Time bee venom protein (honey bee) Allergy Severe SWELLING Verified 03/02/20 01:44 lisinopril Allergy Intermediate FACE Verified 03/02/20 01:44 SWELLING potato Allergy Intermediate BBQ chips Verified 03/02/20 01:44 - facial swelling metronidazole Allergy Mild FACE Verified 03/02/20 01:44 SWELLING strawberry Allergy Mild HIVES Verified 03/02/20 01:44 alprazolam Allergy Unknown RED FACE, Verified 03/02/20 01:44 FACE SWELLING lactose AdvReac Intermediate VOMTING Verified 03/02/20 01:44 DIARRHEA ABDOMINAL PAIN-LACTOSE INTOLERANCE prednisone AdvReac Mild AGGRESSIVE Verified 03/02/20 01:44 BEHAVIOR colesevelam AdvReac Unknown unknown Verified 03/02/20 01:44 lithium AdvReac Unknown jitters Verified 03/02/20 01:44 Home Medications Home Medications Medication Instructions Recorded Confirmed Type Spiriva with HandiHaler 1 cap INHALATION QAM 06/19/18 03/24/20 History atorvastatin 40 mg PO HS 06/19/18 03/24/20 History calcitriol 0.5 mcg PO QAM 06/19/18 03/24/20 History cetirizine 10 mg PO HS 06/19/18 03/24/20 History cholecalciferol (vitamin D3) 1,000 unit PO QAM 06/19/18 03/24/20 History [Vitamin D3] docusate sodium 100 mg PO DAILY PRN 06/19/18 03/24/20 History epinephrine [EpiPen] 0.3 mg IM DIRECTED PRN 06/19/18 03/24/20 History fentanyl 50 mcg TRANSDERMAL [id number] 06/19/18 03/24/20 History furosemide 80 mg PO BID 06/19/18 03/24/20 History methocarbamol 750 mg PO TID 06/19/18 03/24/20 History multivitamin 1 tab PO QAM 06/19/18 03/24/20 History ondansetron 8 mg PO BID PRN 06/19/18 03/24/20 History venlafaxine 150 mg PO QAM 06/19/18 03/24/20 History warfarin 5 mg PO 5XWK 06/19/18 03/24/20 History oxycodone 10 mg PO Q6H PRN 09/14/18 03/24/20 History trazodone 200 mg PO HS 09/14/18 03/24/20 History venlafaxine 75 mg PO QAM 09/14/18 03/24/20 History zolpidem 5 mg PO HS 09/14/18 03/24/20 History amitriptyline 50 mg PO HS 05/28/19 03/24/20 History amlodipine 10 mg PO QAM 05/28/19 03/24/20 History diclofenac sodium 2 g TOPICAL QID PRN 05/28/19 03/24/20 History gabapentin 800 mg PO BID 05/28/19 03/24/20 History alendronate 70 mg tablet 70 mg PO WK tab 06/10/19 03/24/20 History warfarin 7.5 mg PO 2XWK 09/19/19 03/24/20 History Lantus U-100 Insulin 18 unit SUBCUT BID 03/02/20 03/24/20 History diltiazem HCl 120 mg PO QAM 03/02/20 03/24/20 History metoprolol tartrate 100 mg PO BID #120 tab 03/02/20 03/24/20 Rx pantoprazole 40 mg PO QAM 03/02/20 03/24/20 History potassium chloride 10 meq PO TID 03/02/20 03/24/20 History albuterol sulfate [Proventil HFA] 2 puffs INH Q6H PRN 03/24/20 03/24/20 History levalbuterol HCl 1.25 mg INHALATION Q4H PRN 03/24/20 03/24/20 History Past Med/Surg History Social History Preferred Language: Greek Communication Ability: Effective Visual Impairment: No Limitations 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 Beliefs That Will Affect Care: None marital status: / Current Living Situation: Alone Current Living Situation Comment: caregiver helps Feels Safe at Home: Yes Smoking Status: Current every day smoker Tobacco Type: cigarettes ; Cigarettes Per Day: 10 ; Second Hand Exposure: No ; Hx Alcohol Use: No Hx Substance Use: No Review of Systems Constitutional: + fever and + chills Eyes: no problem reported Ear, Nose, Mouth, Throat: no problem reported Respiratory: + cough, + dyspnea and + sputum production Cardiovascular: + chest pain at rest, + dyspnea and + orthopnea (chronic, unchanged); no palpitations, no lightheadedness and no edema Gastrointestinal: + abdominal pain (Occasional but not recently) and + nausea; no vomiting, no constipation and no melena Genitourinary: no problem reported Neurologic: no problem reported Physical Exam Constitutional: + well hydrated and + morbidly obese; no acute distress Eyes: PERRL, conjunctivae normal, anicteric sclerae ENMT: external ear and nose normal, oropharynx normal Respiratory: no respiratory distress Auscultation: + diminished lung sounds (Coarse) No crackles On nasal oxygen 3l/min Cardiovascular: Rate/Rhythm: regular rate and regular rhythm S1-2, no pedal edema Chest (Breasts): Additional Comments: No chest wall tenderness Gastrointestinal (Abdomen): normal bowel sounds, soft, nontender, no hepatosplenomegaly Neurologic: PERRL, EOMI, accommodation nl, no face palsy, no dysarthria Psychiatric: A+Ox3, euthymic affect Results & Data Results & Data ([facility]) Vital Signs (Past 12 Hours) Vital Signs Temp Pulse Resp BP Pulse Ox 03/24/20 18:30 76 20 158/70 H 95 03/24/20 18:15 84 20 03/24/20 18:00 69 25 H 94 03/24/20 17:45 63 20 96 03/24/20 17:31 61 24 175/75 H 96 03/24/20 17:15 64 18 96 03/24/20 17:01 61 22 133/55 L 96 03/24/20 16:45 58 L 16 95 03/24/20 16:30 65 13 144/95 H 96 03/24/20 16:15 62 14 03/24/20 16:00 59 L 17 152/73 H 95 03/24/20 15:45 58 L 22 95 03/24/20 15:41 95 03/24/20 15:30 75 20 94 03/24/20 15:15 60 16 03/24/20 14:46 36.7 C 58 L 20 154/77 H 95 03/24/20 14:45 63 14 98 Laboratory Results Laboratory Results - last 24 hr 03/24/20 03/24/20 03/24/20 15:23 15:23 15:23 WBC 8.20 RBC 4.29 Hgb 13.3 Hct 39.2 MCV 91.4 MCH 31.0 MCHC 33.9 RDW Std Deviation 44.4 RDW Coeff of [place] 13.4 Plt Count 265 MPV 9.7 Immature Gran % (Auto) 0.2 Neut % (Auto) 62.6 Lymph % (Auto) 27.6 [place] % (Auto) 8.0 Eos % (Auto) 1.5 Baso % (Auto) 0.1 Neut # (Auto) 5.13 Lymph # (Auto) 2.26 [place] # (Auto) 0.66 H Eos # (Auto) 0.12 Baso # (Auto) 0.01 Immature Gran # (Auto) 0.02 ESR PT 23.1 H INR 2.3 H APTT 40.4 H PTT Ratio 1.4 Sodium 139 Potassium 4.3 Chloride 101 Carbon Dioxide 33 H Anion Gap 5.0 BUN 18 Creatinine 1.21 H Est Cr Clr Drug Dosing 54.4 Est GFR ( Amer) 55.1 Est GFR (Non-Af Amer) 47.6 BUN/Creatinine Ratio 15.2 Glucose 106 H Lactate Calcium 9.1 Magnesium 2.0 Total Bilirubin 0.3 AST 20 ALT 28 Alkaline Phosphatase 84 Troponin I < 0.015 C-Reactive Protein Pending NT-Pro-B Natriuret Pep 938 H Total Protein 7.3 Albumin 2.9 L Globulin 4.4 H Albumin/Globulin Ratio 0.7 L Procalcitonin Urine Color Urine Appearance Urine pH Ur Specific [place] Urine Protein Urine Glucose (UA) Urine Ketones Urine Blood Urine Nitrite Urine Bilirubin Urine Urobilinogen Ur Leukocyte Esterase Urine WBC (Auto) Urine RBC (Auto) U Hyaline Cast (Auto) U Epithel Cells (Auto) Urine Bacteria (Auto) SARS-CoV-2 RNA (RT-PCR) 03/24/20 03/24/20 03/24/20 15:23 15:25 15:25 WBC RBC Hgb Hct MCV MCH MCHC RDW Std Deviation RDW Coeff of [place] Plt Count MPV Immature Gran % (Auto) Neut % (Auto) Lymph % (Auto) [place] % (Auto) Eos % (Auto) Baso % (Auto) Neut # (Auto) Lymph # (Auto) [place] # (Auto) Eos # (Auto) Baso # (Auto) Immature Gran # (Auto) ESR Pending PT INR APTT PTT Ratio Sodium Potassium Chloride Carbon Dioxide Anion Gap BUN Creatinine Est Cr Clr Drug Dosing Est GFR ( Amer) Est GFR (Non-Af Amer) BUN/Creatinine Ratio Glucose Lactate 0.9 Calcium Magnesium Total Bilirubin AST ALT Alkaline Phosphatase Troponin I C-Reactive Protein Cancelled NT-Pro-B Natriuret Pep Total Protein Albumin Globulin Albumin/Globulin Ratio Procalcitonin Urine Color Urine Appearance Urine pH Ur Specific [place] Urine Protein Urine Glucose (UA) Urine Ketones Urine Blood Urine Nitrite Urine Bilirubin Urine Urobilinogen Ur Leukocyte Esterase Urine WBC (Auto) Urine RBC (Auto) U Hyaline Cast (Auto) U Epithel Cells (Auto) Urine Bacteria (Auto) SARS-CoV-2 RNA (RT-PCR) 03/24/20 03/24/20 03/24/20 15:25 15:55 15:57 WBC RBC Hgb Hct MCV MCH MCHC RDW Std Deviation RDW Coeff of [place] Plt Count MPV Immature Gran % (Auto) Neut % (Auto) Lymph % (Auto) [place] % (Auto) Eos % (Auto) Baso % (Auto) Neut # (Auto) Lymph # (Auto) [place] # (Auto) Eos # (Auto) Baso # (Auto) Immature Gran # (Auto) ESR PT INR APTT PTT Ratio Sodium Potassium Chloride Carbon Dioxide Anion Gap BUN Creatinine Est Cr Clr Drug Dosing Est GFR ( Amer) Est GFR (Non-Af Amer) BUN/Creatinine Ratio Glucose Lactate Calcium Magnesium Total Bilirubin AST ALT Alkaline Phosphatase Troponin I C-Reactive Protein NT-Pro-B Natriuret Pep Total Protein Albumin Globulin Albumin/Globulin Ratio Procalcitonin Pending Urine Color Yellow Urine Appearance Clear Urine pH 6.5 Ur Specific [place] 1.008 Urine Protein Negative Urine Glucose (UA) Negative Urine Ketones Negative Urine Blood Trace H Urine Nitrite Negative Urine Bilirubin Negative Urine Urobilinogen Negative Ur Leukocyte Esterase Negative Urine WBC (Auto) 0 Urine RBC (Auto) 0-4 U Hyaline Cast (Auto) 0 U Epithel Cells (Auto) 0-5 Urine Bacteria (Auto) Negative SARS-CoV-2 RNA (RT-PCR) Pending Diagnostic Findings CXR FINDINGS: The heart is enlarged. There is a valvular prosthesis. 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 There is diffuse elevation of interstitium consistent with a pulmonary edema pattern. There is no focal pulmonary consolidation.[ IMPRESSION: Persistent pulmonary edema pattern. ECG Additional Comments: EKG - sinus rhythm, RBBB (old) Code Status & VTE Plan VTE Prophylaxis Plan VTE Prophylaxis will be ordered: Yes
[2020-03-24] MEDS ORDERED: GLUCOSE 10 TABS/TUBE PO PRN (21:31)
[2020-03-24] MEDS ORDERED: DEXTROSE 50% 50 ML SYRINGE IV PRN (21:31)
[2020-03-24] MEDS ORDERED: ALBUTEROL HFA 8 GM INHALER INH PRN (21:31)
[2020-03-24] MEDS ORDERED: GLUCAGON FOR INJ 1 MG VIAL SQ PRN (21:31)
[2020-03-24] MEDS ORDERED: DICLOFENAC SOD 1% GEL 100 GM TUBE EXT PRN (21:31)
[2020-03-24] MEDS ORDERED: GLUCOSE 40% GEL 15 GM TUBE PO PRN (21:31)
[2020-03-24] MEDS ORDERED: ONDANSETRON 8MG OD TAB PO PRN (21:31)
[2020-03-24] MEDS ORDERED: DOCUSATE SODIUM 100 MG CAP PO PRN (21:38)
[2020-03-24] MEDS ORDERED: fentaNYL 50 MCG/HR TDSY TD SCH (22:00)
[2020-03-24] MEDS ORDERED: INSULIN GLARGINE SOLOSTAR 100 UNITS/ML 3 ML PEN SC SCH (22:00)
[2020-03-24] MEDS: POTASSIUM CHLORIDE 10 MEQ TABCR PO SCH (22:48)
[2020-03-24] MEDS: TRAZODONE HCL 100 MG TAB PO SCH (22:48)
[2020-03-24] MEDS: ATORVASTATIN 40 MG TAB PO SCH (22:51)
[2020-03-24] MEDS: AMITRIPTYLINE HCL 50 MG TAB PO SCH (22:51)
[2020-03-24] MEDS: GABAPENTIN 800 MG TAB PO SCH (22:52)
[2020-03-24] MEDS: CETIRIZINE HCL 10 MG TABLET PO SCH (22:52)
[2020-03-24] MEDS: METOPROLOL TARTRATE 100 MG TAB PO SCH (22:56)
[2020-03-24] MEDS ORDERED: FUROSEMIDE 20 MG in SYRINGE 0 ML IV ONE (23:00)
[2020-03-24] MEDS: ZOLPIDEM TARTRATE 5 MG TAB PO SCH (23:06)
[2020-03-24] MEDS: METHOCARBAMOL 750 MG TABLET PO SCH (23:07)
[2020-03-24] MEDS: INSULIN ASPART 100 UNITS/ML 3 ML PEN SC SCH (23:22)
[2020-03-24] MEDS: INSULIN GLARGINE SOLOSTAR 100 UNITS/ML 3 ML PEN SC SCH (23:23)
[2020-03-25] MEDS: DOXYCYCLINE HYCLATE 100 MG CAP PO SCH ×2 (00:23→08:26)
[2020-03-25] MEDS: CHECK FENTANYL PATCH PLACEMENT SCH ×4 (00:27→23:02)
--- NOTE | 2020-03-25 07:29 | Electrocardiogram Report ---
Test Reason : Blood Pressure : / mmHG Vent. Rate : 060 BPM Atrial Rate : 060 BPM P-R Int : 192 ms QRS Dur : 142 ms QT Int : 482 ms P-R-T Axes : 077 090 026 degrees QTc Int : 482 ms Normal sinus rhythm Right bundle branch block Abnormal ECG When compared with ECG of 02-MAR-2020 00:58, Sinus rhythm has replaced Atrial fibrillation Vent. rate has decreased BY 86 BPM T wave inversion less evident in Inferior leads T wave inversion less evident in Anterior leads Confirmed by Scott Judge ([id number]) on 03/25/2020 7:29:09 AM Referred By: REFERRED SELF Confirmed By:Scott Judge
[2020-03-25 07:38] LABS: Hematocrit (blood only) 39.8 % (37-47); Hemoglobin 12.6 g/dL (12.0-16.0); Mean Corpuscular Hemoglobin 29.8 pg (25-34); Mean Corpuscular Hgb Conc 31.7 g/dL (32-36); Mean Corpuscular Volume 94.1 fL (80-100); Platelet Count 273 K/uL (130-400); RDW Coefficient of Variation 13.6 % (11.5-14.5); RDW Standard Deviation 46.7 fL (36.4-46.3); Red Blood Count 4.23 M/uL (4.2-5.4); White Blood Count 9.04 K/uL (4.8-10.8)
[2020-03-25 07:47] LABS: INR 2.5 (0.9-1.1); Prothrombin Time 25.1 Seconds (9.0-12.0)
[2020-03-25 08:07] LABS: Creatinine Clr Calc Pharmacy 41.8 ml/min; Est GFR (African American) 40.2; Est GFR (Non-African American) 34.7; Potassium 4.2 mmol/L (3.5-5.1)
[2020-03-25] MEDS: CALCITRIOL 0.25 MCG CAPSULE PO SCH (08:16)
[2020-03-25] MEDS: VENLAFAXINE HCL XR 75 MG CAPXR PO SCH (08:17)
[2020-03-25] MEDS: UMECLIDINIUM BROMIDE 62.5MCG/BLISTER 7 PUFFS/INHALER INH SCH (08:18)
[2020-03-25] MEDS: VENLAFAXINE HCL XR 150 MG CAPXR PO SCH (08:19)
[2020-03-25] MEDS: POTASSIUM CHLORIDE 10 MEQ TABCR PO SCH ×3 (08:22→21:26)
[2020-03-25] MEDS: PANTOprazole 40 MG TAB PO SCH (08:23)
[2020-03-25] MEDS: GABAPENTIN 800 MG TAB PO SCH ×2 (08:24→21:28)
[2020-03-25] MEDS: METHOCARBAMOL 750 MG TABLET PO SCH ×3 (08:25→21:28)
[2020-03-25] MEDS: CHOLECALCIFEROL 1,000 UNITS 25 MCG TAB PO SCH (08:27)
[2020-03-25] MEDS: METOPROLOL TARTRATE 100 MG TAB PO SCH ×2 (08:28→21:28)
[2020-03-25] MEDS: MULTIVITAMIN TAB PO SCH (08:29)
[2020-03-25] MEDS: dilTIAZem HCL 120 MG CAPCR PO SCH (08:31)
[2020-03-25] MEDS: INSULIN ASPART 100 UNITS/ML 3 ML PEN SC SCH ×4 (08:36→21:55)
[2020-03-25] MEDS: INSULIN GLARGINE SOLOSTAR 100 UNITS/ML 3 ML PEN SC SCH (08:37)
[2020-03-25] MEDS ORDERED: FUROSEMIDE 80 MG TAB PO SCH (09:00)
[2020-03-25] MEDS ORDERED: AMLODIPINE BESYLATE 5 MG TAB PO SCH (09:00)
--- NOTE | 2020-03-25 12:30 | Hospitalist Progress Note ---
Date of Service March 25, 2020 Assessment & Plan (1) Substernal chest pain: (2) Productive cough: Chest pain, cough, shortness of breath. With remarkable improvement in symptoms with iv diuresis, no leukocytosis, negative procalcitonin, CXR reports; suspicion for CAP is low Will hold antibiotics for now Though low suspicion based on history, will await COVID 19 test already sent BNP is 938 (lower than a month ago when it was 1242) Likely mild acute on chronic diastolic heart failure Continue iv lasix 80 bid and monitor (3) Chronic respiratory failure with hypoxia, on home oxygen therapy: Has COPD, DARIUS on BIPAP Currently at baseline O2 requirement Still smokes about 10cig/day Counselled on need for smoking cessation on admission but patient stated she is not interested (4) Obstructive sleep apnea treated with BiPAP: Continue BIPAP HS (5) Insomnia: Continue home meds (6) Chronic pain Continue home narcotics Confirmed on PDMP. Patient will benefit from gradual wean off if possible due to multiple meds that could pose risk (7) DM2 Continue home lantus 18U BID Accucheck and ISS per protocol Carb controlled diet (8) Hypertension Continue home antihypertensives (9) Atrial fibrillation Paroxysmal as patient currently remains in sinus rhythm Continue home metoprolol Continue warfarin INR currently therapeutic (10) Mood disorder Continue home meds DVT ppx - on warfarin Admission and Anticipated Discharge Date Admission Date: March 24, 2020 Subjective Patient seen and examined Reports shortness of breath and cough are significantly improved Chest pain completely resolved No fevers, chills Reports mild abd discomfort. Denied nausea, vomiting, diarrhea Denied any urinary symptoms Physical Exam Constitutional: + well hydrated and + morbidly obese; no acute distress Eyes: PERRL, conjunctivae normal, anicteric sclerae ENMT: external ear and nose normal, oropharynx normal Respiratory: no respiratory distress Auscultation: + diminished lung sounds (Coarse) Cardiovascular: Rate/Rhythm: regular rate and regular rhythm Extremities: no pedal edema Gastrointestinal (Abdomen): normal bowel sounds, soft, nontender, no hepatosplenomegaly Neurologic: PERRL, EOMI, accommodation nl, no face palsy, no dysarthria Psychiatric: A+Ox3, euthymic affect Results & Data Results & Data ([facility]) Vital Signs (Past 12 Hours) Vital Signs Temp Pulse Pulse Resp BP Pulse Ox 03/25/20 11:13 36.9 C 62 18 126/71 98 03/25/20 08:24 36.7 C 74 18 128/76 98 03/25/20 07:55 62 03/25/20 07:51 62 03/25/20 04:34 36.8 C 77 18 137/75 97 Laboratory Results Laboratory Results - last 24 hr 03/24/20 03/24/20 03/24/20 15:23 15:23 15:23 WBC 8.20 RBC 4.29 Hgb 13.3 Hct 39.2 MCV 91.4 MCH 31.0 MCHC 33.9 RDW Std Deviation 44.4 RDW Coeff of King 13.4 Plt Count 265 MPV 9.7 Immature Gran % (Auto) 0.2 Neut % (Auto) 62.6 Lymph % (Auto) 27.6 [place] % (Auto) 8.0 Eos % (Auto) 1.5 Baso % (Auto) 0.1 Neut # (Auto) 5.13 Lymph # (Auto) 2.26 [place] # (Auto) 0.66 H Eos # (Auto) 0.12 Baso # (Auto) 0.01 Immature Gran # (Auto) 0.02 ESR PT 23.1 H INR 2.3 H APTT 40.4 H PTT Ratio 1.4 Sodium 139 Potassium 4.3 Chloride 101 Carbon Dioxide 33 H Anion Gap 5.0 BUN 18 Creatinine 1.21 H Est Cr Clr Drug Dosing 54.4 Est GFR ( Amer) 55.1 Est GFR (Non-Af Amer) 47.6 BUN/Creatinine Ratio 15.2 Glucose 106 H POC Glucose Lactate Calcium 9.1 Magnesium 2.0 Total Bilirubin 0.3 AST 20 ALT 28 Alkaline Phosphatase 84 Troponin I < 0.015 C-Reactive Protein 0.32 H NT-Pro-B Natriuret Pep 938 H Total Protein 7.3 Albumin 2.9 L Globulin 4.4 H Albumin/Globulin Ratio 0.7 L Procalcitonin Urine Color Urine Appearance Urine pH Ur Specific [place] Urine Protein Urine Glucose (UA) Urine Ketones Urine Blood Urine Nitrite Urine Bilirubin Urine Urobilinogen Ur Leukocyte Esterase Urine WBC (Auto) Urine RBC (Auto) U Hyaline Cast (Auto) U Epithel Cells (Auto) Urine Bacteria (Auto) SARS-CoV-2 RNA (RT-PCR) 03/24/20 03/24/20 03/24/20 15:23 15:25 15:25 WBC RBC Hgb Hct MCV MCH MCHC RDW Std Deviation RDW Coeff of King Plt Count MPV Immature Gran % (Auto) Neut % (Auto) Lymph % (Auto) [place] % (Auto) Eos % (Auto) Baso % (Auto) Neut # (Auto) Lymph # (Auto) [place] # (Auto) Eos # (Auto) Baso # (Auto) Immature Gran # (Auto) ESR 47 H PT INR APTT PTT Ratio Sodium Potassium Chloride Carbon Dioxide Anion Gap BUN Creatinine Est Cr Clr Drug Dosing Est GFR ( Amer) Est GFR (Non-Af Amer) BUN/Creatinine Ratio Glucose POC Glucose Lactate 0.9 Calcium Magnesium Total Bilirubin AST ALT Alkaline Phosphatase Troponin I C-Reactive Protein Cancelled NT-Pro-B Natriuret Pep Total Protein Albumin Globulin Albumin/Globulin Ratio Procalcitonin Urine Color Urine Appearance Urine pH Ur Specific [place] Urine Protein Urine Glucose (UA) Urine Ketones Urine Blood Urine Nitrite Urine Bilirubin Urine Urobilinogen Ur Leukocyte Esterase Urine WBC (Auto) Urine RBC (Auto) U Hyaline Cast (Auto) U Epithel Cells (Auto) Urine Bacteria (Auto) SARS-CoV-2 RNA (RT-PCR) 03/24/20 03/24/20 03/24/20 15:25 15:55 15:57 WBC RBC Hgb Hct MCV MCH MCHC RDW Std Deviation RDW Coeff of [place] Plt Count MPV Immature Gran % (Auto) Neut % (Auto) Lymph % (Auto) [place] % (Auto) Eos % (Auto) Baso % (Auto) Neut # (Auto) Lymph # (Auto) [place] # (Auto) Eos # (Auto) Baso # (Auto) Immature Gran # (Auto) ESR PT INR APTT PTT Ratio Sodium Potassium Chloride Carbon Dioxide Anion Gap BUN Creatinine Est Cr Clr Drug Dosing Est GFR ( Amer) Est GFR (Non-Af Amer) BUN/Creatinine Ratio Glucose POC Glucose Lactate Calcium Magnesium Total Bilirubin AST ALT Alkaline Phosphatase Troponin I C-Reactive Protein NT-Pro-B Natriuret Pep Total Protein Albumin Globulin Albumin/Globulin Ratio Procalcitonin < 0.05 Urine Color Yellow Urine Appearance Clear Urine pH 6.5 Ur Specific [place] 1.008 Urine Protein Negative Urine Glucose (UA) Negative Urine Ketones Negative Urine Blood Trace H Urine Nitrite Negative Urine Bilirubin Negative Urine Urobilinogen Negative Ur Leukocyte Esterase Negative Urine WBC (Auto) 0 Urine RBC (Auto) 0-4 U Hyaline Cast (Auto) 0 U Epithel Cells (Auto) 0-5 Urine Bacteria (Auto) Negative SARS-CoV-2 RNA (RT-PCR) Pending 03/24/20 03/25/20 03/25/20 22:42 07:15 07:15 WBC 9.04 RBC 4.23 Hgb 12.6 Hct 39.8 MCV 94.1 MCH 29.8 MCHC 31.7 L RDW Std Deviation 46.7 H RDW Coeff of [place] 13.6 Plt Count 273 MPV 10.0 Immature Gran % (Auto) Neut % (Auto) Lymph % (Auto) [place] % (Auto) Eos % (Auto) Baso % (Auto) Neut # (Auto) Lymph # (Auto) [place] # (Auto) Eos # (Auto) Baso # (Auto) Immature Gran # (Auto) ESR PT 25.1 H INR 2.5 H APTT PTT Ratio Sodium Potassium Chloride Carbon Dioxide Anion Gap BUN Creatinine Est Cr Clr Drug Dosing Est GFR ( Amer) Est GFR (Non-Af Amer) BUN/Creatinine Ratio Glucose POC Glucose 269 H Lactate Calcium Magnesium Total Bilirubin AST ALT Alkaline Phosphatase Troponin I C-Reactive Protein NT-Pro-B Natriuret Pep Total Protein Albumin Globulin Albumin/Globulin Ratio Procalcitonin Urine Color Urine Appearance Urine pH Ur Specific [place] Urine Protein Urine Glucose (UA) Urine Ketones Urine Blood Urine Nitrite Urine Bilirubin Urine Urobilinogen Ur Leukocyte Esterase Urine WBC (Auto) Urine RBC (Auto) U Hyaline Cast (Auto) U Epithel Cells (Auto) Urine Bacteria (Auto) SARS-CoV-2 RNA (RT-PCR) 03/25/20 03/25/20 03/25/20 07:15 08:01 11:13 WBC RBC Hgb Hct MCV MCH MCHC RDW Std Deviation RDW Coeff of [place] Plt Count MPV Immature Gran % (Auto) Neut % (Auto) Lymph % (Auto) [place] % (Auto) Eos % (Auto) Baso % (Auto) Neut # (Auto) Lymph # (Auto) [place] # (Auto) Eos # (Auto) Baso # (Auto) Immature Gran # (Auto) ESR PT INR APTT PTT Ratio Sodium 138 Potassium 4.2 Chloride 100 Carbon Dioxide 34 H Anion Gap 4.0 BUN 25 H Creatinine 1.57 H D Est Cr Clr Drug Dosing 41.8 Est GFR ( Amer) 40.2 Est GFR (Non-Af Amer) 34.7 BUN/Creatinine Ratio 16.0 Glucose 188 H POC Glucose 184 H 93 Lactate Calcium 9.0 Magnesium Total Bilirubin AST ALT Alkaline Phosphatase Troponin I C-Reactive Protein NT-Pro-B Natriuret Pep Total Protein Albumin Globulin Albumin/Globulin Ratio Procalcitonin Urine Color Urine Appearance Urine pH Ur Specific [place] Urine Protein Urine Glucose (UA) Urine Ketones Urine Blood Urine Nitrite Urine Bilirubin Urine Urobilinogen Ur Leukocyte Esterase Urine WBC (Auto) Urine RBC (Auto) U Hyaline Cast (Auto) U Epithel Cells (Auto) Urine Bacteria (Auto) SARS-CoV-2 RNA (RT-PCR)
[2020-03-25] MEDS: NICOTINE 14 MG/24 HR PATCH TD SCH (12:57)
[2020-03-25] MEDS: CARBOHYDRATES FOR HYPOGLYCEMIA PO PRN ×2 (14:05→14:22)
[2020-03-25] MEDS: WARFARIN SOD 5 MG TAB PO SCH (15:15)
[2020-03-25] MEDS ORDERED: PHARMACY GLYCEMIC MGMT CONSULT PRN (15:22)
[2020-03-25] MEDS ORDERED: FUROSEMIDE 80 MG in SYRINGE 0 ML IV SCH (21:00)
[2020-03-25] MEDS ORDERED: INSULIN GLARGINE SOLOSTAR 100 UNITS/ML 3 ML PEN SC SCH ×2 (21:00→22:00)
[2020-03-25] MEDS: ZOLPIDEM TARTRATE 5 MG TAB PO SCH (21:25)
[2020-03-25] MEDS: TRAZODONE HCL 100 MG TAB PO SCH (21:26)
[2020-03-25] MEDS: AMITRIPTYLINE HCL 50 MG TAB PO SCH (21:26)
[2020-03-25] MEDS: ATORVASTATIN 40 MG TAB PO SCH (21:27)
[2020-03-25] MEDS: CETIRIZINE HCL 10 MG TABLET PO SCH (21:29)
[2020-03-25] MEDS ORDERED: CEFEPIME CONSULT ACTIVE PRN (22:30)
[2020-03-25] MEDS: CEFEPIME 2,000 MG in SYRINGE 7.5 ML IV SCH (22:44)
[2020-03-26] MEDS ORDERED: INSULIN ASPART 100 UNITS/ML 3 ML PEN SC SCH (02:00)
[2020-03-26] MEDS ORDERED: INSULIN ASPART 100 UNITS/ML 3 ML PEN SC STA (02:03)
[2020-03-26 06:40] LABS: Hematocrit (blood only) 39.2 % (37-47); Hemoglobin 12.6 g/dL (12.0-16.0); Mean Corpuscular Hemoglobin 30.9 pg (25-34); Mean Corpuscular Hgb Conc 32.1 g/dL (32-36); Mean Corpuscular Volume 96.1 fL (80-100); Mean Platelet Volume 9.8 fL (7.4-10.4); Platelet Count 277 K/uL (130-400); RDW Coefficient of Variation 13.7 % (11.5-14.5); RDW Standard Deviation 47.8 fL (36.4-46.3); Red Blood Count 4.08 M/uL (4.2-5.4)
[2020-03-26 06:59] LABS: BUN Creatinine Ratio 21.1 (10-20); Creatinine Clr Calc Pharmacy 40.2 ml/min; Est GFR (African American) 38.5; Est GFR (Non-African American) 33.2; Potassium 4.1 mmol/L (3.5-5.1)
[2020-03-26] MEDS: CHECK FENTANYL PATCH PLACEMENT SCH ×2 (08:19→16:14)
[2020-03-26] MEDS: NICOTINE 14 MG/24 HR PATCH TD SCH (08:20)
[2020-03-26] MEDS: dilTIAZem HCL 120 MG CAPCR PO SCH (08:21)
[2020-03-26] MEDS: VENLAFAXINE HCL XR 150 MG CAPXR PO SCH (08:22)
[2020-03-26] MEDS: VENLAFAXINE HCL XR 75 MG CAPXR PO SCH (08:23)
[2020-03-26] MEDS: POTASSIUM CHLORIDE 10 MEQ TABCR PO SCH ×3 (08:26→20:07)
[2020-03-26] MEDS: METOPROLOL TARTRATE 100 MG TAB PO SCH ×2 (08:27→20:09)
[2020-03-26] MEDS: MULTIVITAMIN TAB PO SCH (08:28)
[2020-03-26] MEDS: GABAPENTIN 800 MG TAB PO SCH ×2 (08:28→20:09)
[2020-03-26] MEDS: PANTOprazole 40 MG TAB PO SCH (08:29)
[2020-03-26] MEDS: METHOCARBAMOL 750 MG TABLET PO SCH ×3 (08:30→20:10)
[2020-03-26] MEDS: CALCITRIOL 0.25 MCG CAPSULE PO SCH (08:30)
[2020-03-26] MEDS: CHOLECALCIFEROL 1,000 UNITS 25 MCG TAB PO SCH (08:31)
[2020-03-26] MEDS: INSULIN ASPART 100 UNITS/ML 3 ML PEN SC SCH ×4 (08:33→21:24)
[2020-03-26] MEDS: INSULIN GLARGINE SOLOSTAR 100 UNITS/ML 3 ML PEN SC SCH ×2 (08:45→21:24)
[2020-03-26] MEDS: UMECLIDINIUM BROMIDE 62.5MCG/BLISTER 7 PUFFS/INHALER INH SCH (09:35)
--- NOTE | 2020-03-26 10:54 | Hospitalist Progress Note ---
Date of Service March 26, 2020 Assessment & Plan (1) Substernal chest pain: (2) Productive cough: Chest pain, cough, shortness of breath. With remarkable improvement in symptoms with iv diuresis, no leukocytosis, negative procalcitonin, CXR reports; suspicion for CAP is low Though low suspicion based on history, will await COVID 19 test already sent BNP is 938 (lower than a month ago when it was 1242) Likely mild acute on chronic diastolic heart failure IV diuretics held today due to increased creatinine and marked improvement of symptoms Resume po diuretics One of blood culture bottle growing GPR. Questionably contamination Was started on ceftriaxone overnight Will await speciation Antifungal topical for intertrigo (3) Chronic respiratory failure with hypoxia, on home oxygen therapy: Has COPD, DARIUS on BIPAP Currently at baseline O2 requirement Still smokes about 10cig/day Counselled on need for smoking cessation on admission but patient stated she is not interested (4) Obstructive sleep apnea treated with BiPAP: Continue BIPAP HS (5) Insomnia: Continue home meds (6) Chronic pain Continue home narcotics Confirmed on PDMP. Patient will benefit from gradual wean off if possible due to multiple meds that could pose risk (7) DM2 Continue home lantus 18U BID Accucheck and ISS per protocol Carb controlled diet (8) Hypertension Continue home antihypertensives (9) Atrial fibrillation Paroxysmal as patient currently remains in sinus rhythm Continue home metoprolol Continue warfarin INR currently therapeutic (10) Mood disorder Continue home meds DVT ppx - on warfarin Admission and Anticipated Discharge Date Admission Date: March 24, 2020 Subjective Patient seen and examined Reports significant improvement in cough and shortness of breath Reports some pruritic rash under breasts Denied any more chest pain Denied abd discomfort/pain, nausea, vomiting Denied nausea, vomiting Physical Exam Constitutional: + well hydrated and + morbidly obese; no acute distress Eyes: PERRL, conjunctivae normal, anicteric sclerae ENMT: external ear and nose normal, oropharynx normal Respiratory: no respiratory distress Auscultation: + diminished lung sounds (Coarse) Cardiovascular: Rate/Rhythm: regular rate and regular rhythm Extremities: no pedal edema Chest (Breasts): Additional Comments: Erythematous rash under skin folds of both breast (L>R) - Intertrigo Gastrointestinal (Abdomen): normal bowel sounds, soft, nontender, no hepatosplenomegaly Musculoskeletal: no cyanosis or clubbing, extremities motor strength 5/5 Neurologic: PERRL, EOMI, accommodation nl, no face palsy, no dysarthria Psychiatric: A+Ox3, euthymic affect Results & Data Results & Data ([facility]) Vital Signs (Past 12 Hours) Vital Signs Temp Pulse Pulse Resp BP Pulse Ox 03/26/20 07:59 59 L 03/26/20 07:54 58 L 18 131/76 98 03/26/20 07:04 59 L 03/26/20 00:17 36.9 C 72 18 130/69 93 Laboratory Results Laboratory Results - last 24 hr 03/25/20 03/25/20 03/25/20 11:13 14:03 14:18 WBC RBC Hgb Hct MCV MCH MCHC RDW Std Deviation RDW Coeff of King Plt Count MPV Sodium Potassium Chloride Carbon Dioxide Anion Gap BUN Creatinine Est Cr Clr Drug Dosing Est GFR ( Amer) Est GFR (Non-Af Amer) BUN/Creatinine Ratio Glucose POC Glucose 93 48 L* 68 L* Calcium 03/25/20 03/25/20 03/25/20 14:37 16:49 21:35 WBC RBC Hgb Hct MCV MCH MCHC RDW Std Deviation RDW Coeff of King Plt Count MPV Sodium Potassium Chloride Carbon Dioxide Anion Gap BUN Creatinine Est Cr Clr Drug Dosing Est GFR ( Amer) Est GFR (Non-Af Amer) BUN/Creatinine Ratio Glucose POC Glucose 98 160 H 248 H Calcium 03/26/20 03/26/20 03/26/20 01:55 05:58 05:58 WBC 9.30 RBC 4.08 L Hgb 12.6 Hct 39.2 MCV 96.1 MCH 30.9 MCHC 32.1 RDW Std Deviation 47.8 H RDW Coeff of King 13.7 Plt Count 277 MPV 9.8 Sodium 141 Potassium 4.1 Chloride 102 Carbon Dioxide 33 H Anion Gap 6.0 BUN 34 H Creatinine 1.63 H Est Cr Clr Drug Dosing 40.2 Est GFR ( Amer) 38.5 Est GFR (Non-Af Amer) 33.2 BUN/Creatinine Ratio 21.1 H Glucose 166 H POC Glucose 305 H* Calcium 9.0 03/26/20 07:52 WBC RBC Hgb Hct MCV MCH MCHC RDW Std Deviation RDW Coeff of King Plt Count MPV Sodium Potassium Chloride Carbon Dioxide Anion Gap BUN Creatinine Est Cr Clr Drug Dosing Est GFR ( Amer) Est GFR (Non-Af Amer) BUN/Creatinine Ratio Glucose POC Glucose 174 H Calcium
--- NOTE | 2020-03-26 10:56 | Pharmacy Report ---
Glycemic Control Consultation - Date of Service March 26, 2020 - Scope Scope: Glycemic Pharmacist consulted for glycemic control and to write orders per [facility] inpatient glycemic control protocol. - Objective Weight: 98.3 kg Accuchecks BSG (last 24hrs): 03/25/20 03/25/20 03/25/20 11:13 14:03 14:18 Glucose POC Glucose 93 48 L* 68 L* 03/25/20 03/25/20 03/25/20 14:37 16:49 21:35 Glucose POC Glucose 98 160 H 248 H 03/26/20 03/26/20 03/26/20 01:55 05:58 07:52 Glucose 166 H POC Glucose 305 H* 174 H Laboratory Data (last 24hrs): 03/26/20 05:58 Potassium 4.1 Carbon Dioxide 33 H Anion Gap 6.0 Creatinine 1.63 H Est Cr Clr Drug Dosing 40.2 - Recent Pertinent Medications Outpatient Anti-diabetic Regimen: * Lantus 18 units SQ BID * A1c = 8.8 % 03/02/20 Risk Factors for Insulin Resistance: * Steroids: Solu-medrol 125 IV x 1 dose on 03/24 at 1448 * Infection: IV Cefepime * Diet: Type 2 DM - Assessment & Plan Assessment & Plan: ASSESSMENT: * 64 year old female admitted with SOB, cough, CP, started on IV antibiotics for GPC in 1/2 blood cxs. * Type 2 diabetic, uncontrolled on only basal insulin at home. * Will utilize basal + bolus while admitted for better glycemic control. * Patient did have IV steroid on 03/24, and then an episode of hypoglycemia on 03/25. * Lantus dose was decreased last night, then patient had elevated blood sugar of 305mg/dl early this AM. * Will increase basal some, but not to full home dose at this time as patient is receiving prandial insulin too and titrate to goal. PLAN FOR INPATIENT GLYCEMIC CONTROL: * Basal insulin * Lantus 14 units SQ BID * Bolus insulin * NovoLog per scale ACHS or Q6hrs while NPO * Goal Range: Low 110 mg/dL - High 140 mg/dL * Correction Factor: 30 mg/dL/unit * Nutritional / Prandial insulin per carb ratio of 1 unit per 9 grams CHO consumed * Please note that the plan above was derived based on current level of insulin resistance and hospital stress. These recommendations are appropriate for inpatient admission only. Plan of care upon discharge will need to be reassessed to avoid potential outpatient hypo/hyperglycemia. Thank you.
[2020-03-26] MEDS: CEFEPIME 2,000 MG in SYRINGE 7.5 ML IV SCH (11:32)
[2020-03-26] MEDS: WARFARIN SOD 5 MG TAB PO SCH (16:13)
[2020-03-26] MEDS: TRAZODONE HCL 100 MG TAB PO SCH (20:06)
[2020-03-26] MEDS: ZOLPIDEM TARTRATE 5 MG TAB PO SCH (20:06)
[2020-03-26] MEDS: AMITRIPTYLINE HCL 50 MG TAB PO SCH (20:07)
[2020-03-26] MEDS: ATORVASTATIN 40 MG TAB PO SCH (20:08)
[2020-03-26] MEDS: CLOTRIMAZOLE 1% CR 15 GM TUBE EXT SCH (20:09)
[2020-03-26] MEDS: CETIRIZINE HCL 10 MG TABLET PO SCH (20:10)
[2020-03-27] MEDS: CHECK FENTANYL PATCH PLACEMENT SCH ×2 (00:30→08:21)
[2020-03-27] MEDS: CEFEPIME 2,000 MG in SYRINGE 7.5 ML IV SCH (00:30)
[2020-03-27 07:18] LABS: Hematocrit (blood only) 39.2 % (37-47); Hemoglobin 12.6 g/dL (12.0-16.0); Mean Corpuscular Hemoglobin 30.3 pg (25-34); Mean Corpuscular Hgb Conc 32.1 g/dL (32-36); Mean Corpuscular Volume 94.2 fL (80-100); Mean Platelet Volume 9.6 fL (7.4-10.4); Platelet Count 240 K/uL (130-400); RDW Coefficient of Variation 13.4 % (11.5-14.5); RDW Standard Deviation 46.1 fL (36.4-46.3); Red Blood Count 4.16 M/uL (4.2-5.4); White Blood Count 7.42 K/uL (4.8-10.8)
[2020-03-27 07:49] LABS: Calcium 9.2 mg/dl (8.5-10.1); Creatinine Clr Calc Pharmacy 42.3 ml/min; Est GFR (African American) 40.9; Est GFR (Non-African American) 35.3; Potassium 4.4 mmol/L (3.5-5.1)
[2020-03-27] MEDS: METOPROLOL TARTRATE 100 MG TAB PO SCH (08:16)
[2020-03-27] MEDS: GABAPENTIN 800 MG TAB PO SCH (08:17)
[2020-03-27] MEDS: METHOCARBAMOL 750 MG TABLET PO SCH (08:17)
[2020-03-27] MEDS: POTASSIUM CHLORIDE 10 MEQ TABCR PO SCH (08:18)
[2020-03-27] MEDS: NICOTINE 14 MG/24 HR PATCH TD SCH (08:18)
[2020-03-27] MEDS: CHOLECALCIFEROL 1,000 UNITS 25 MCG TAB PO SCH (08:19)
[2020-03-27] MEDS: CALCITRIOL 0.25 MCG CAPSULE PO SCH (08:19)
[2020-03-27] MEDS: VENLAFAXINE HCL XR 150 MG CAPXR PO SCH (08:19)
[2020-03-27] MEDS: VENLAFAXINE HCL XR 75 MG CAPXR PO SCH (08:20)
[2020-03-27] MEDS: PANTOprazole 40 MG TAB PO SCH (08:20)
[2020-03-27] MEDS: MULTIVITAMIN TAB PO SCH (08:20)
[2020-03-27] MEDS: dilTIAZem HCL 120 MG CAPCR PO SCH (08:20)
[2020-03-27] MEDS: UMECLIDINIUM BROMIDE 62.5MCG/BLISTER 7 PUFFS/INHALER INH SCH (08:21)
[2020-03-27] MEDS: CLOTRIMAZOLE 1% CR 15 GM TUBE EXT SCH (08:22)
[2020-03-27] MEDS ORDERED: INSULIN GLARGINE SOLOSTAR 100 UNITS/ML 3 ML PEN SC SCH ×2 (09:00→21:00)
[2020-03-27] MEDS ORDERED: AMLODIPINE BESYLATE 5 MG TAB PO SCH (09:00)
[2020-03-27] MEDS: INSULIN ASPART 100 UNITS/ML 3 ML PEN SC SCH ×2 (09:10→11:12)
[2020-03-27 11:13] VITALS: BP 131/83; TEMP 98.8; O2SAT 97
[2020-03-27] MEDS ORDERED: predniSONE 20 MG TAB PO STA (11:52)
--- NOTE | 2020-03-27 11:54 | Pharmacy Report ---
Pharmacy Glycemic Short Note 2 - Date of Service March 27, 2020 - Glycemic Short BSG Results (Last 24 hours): 03/26/20 03/26/20 03/27/20 16:02 20:04 06:50 Glucose 88 POC Glucose 101 H 150 H 03/27/20 03/27/20 07:57 11:10 Glucose POC Glucose 92 136 H ASSESSMENT: 03/27 * Patient received total of 49 units of insulin yesterday, of which 28 were basal insulin * Fasting BSG this AM 88 mg/dL - will decrease basal slightly and provide a scale for HS dosing based upon BSG * BSGs yesterday on lower end of range 92-101 - patient refusing insulin at dinner and HS / plan to loosen CR PLAN FOR INPATIENT GLYCEMIC CONTROL: * Basal insulin * Lantus 10 units this AM, then Lantus BID 12-14 units based upon BSG * Bolus insulin * NovoLog per scale ACHS or Q6hrs while NPO * Goal Range: Low 110 mg/dL - High 140 mg/dL * Correction Factor: 30 mg/dL/unit * Nutritional / Prandial insulin per carb ratio of 1 unit per 12 grams CHO consumed * Please note that the plan above was derived based on current level of insulin resistance and hospital stress. These recommendations are appropriate for inpatient admission only. Plan of care upon discharge will need to be reassessed to avoid potential outpatient hypo/hyperglycemia. Thank you. PLAN FOR DISCHARGE: * tbd
--- NOTE | 2020-03-27 11:56 | Discharge Summary ---
Date of Service March 27, 2020 Admission HPI Per Admitting Provider 64 yo F with multiple medical problems as detailed below presented with central chest pain that started 2 days ago. Patient described chest pain as pressure and occasionally sharp, not referred, not associated with exertion, intermittent, not associated with movement or deep breaths Associated with nausea, diaphoresis, some shortness of breath . Reports chronic cough which has been yellowish Reported chills and subjective fevers, stated temp was in 100F. Denied any wheezing, worsening of chronic orthopnea, leg swelling or increased oxygen requirement above baseline of 3l/min Denied any vomiting, abd pain, diarrhea Denied any dysuria, frequency, urgency and incontinence Denied any headache, dizziness, blurry vision Denied any melena, hematochezia,BRBPR Denied contact with any known COVID, recent travels. Reports only contact with home health aide Admission Exam Per Admitting Provider Constitutional: + well hydrated and + morbidly obese; no acute distress Eyes: PERRL, conjunctivae normal, anicteric sclerae ENMT: external ear and nose normal, oropharynx normal Respiratory: No respiratory distress Auscultation: + diminished lung sounds (Coarse) No crackles On nasal oxygen 3l/min Cardiovascular: Rate/Rhythm: regular rate and regular rhythm S1-2, no pedal edema Chest (Breasts): Additional Comments: No chest wall tenderness Gastrointestinal (Abdomen): normal bowel sounds, soft, nontender, no hepatosplenomegaly Neurologic: PERRL, EOMI, accommodation nl, no face palsy, no dysarthria Psychiatric: A+Ox3, euthymic affect Principal Diagnosis Chest pain Intertrigo Mild acute on chronic diastolic CHF Discharge Exam Constitutional + well hydrated and + morbidly obese; no acute distress Eyes PERRL, conjunctivae normal, anicteric sclerae ENMT external ear and nose normal, oropharynx normal Respiratory no respiratory distress Auscultation: + diminished lung sounds (globally); no crackles and no rales Cardiovascular Rate/Rhythm: regular rate and regular rhythm Extremities: no pedal edema Gastrointestinal (Abdomen) normal bowel sounds, soft, nontender, no hepatosplenomegaly Musculoskeletal no cyanosis or clubbing, extremities motor strength 5/5 Skin Erythematous rash under skin folds of both breast (L>R) - Intertrigo - Improved compared to yesterday Neurologic PERRL, EOMI, accommodation nl, no face palsy, no dysarthria Psychiatric A+Ox3, euthymic affect Discharge Data Allergies Allergy/AdvReac Type Severity Reaction Status Date / Time bee venom protein (honey bee) Allergy Severe SWELLING Verified 03/02/20 01:44 lisinopril Allergy Intermediate FACE Verified 03/02/20 01:44 SWELLING potato Allergy Intermediate BBQ chips Verified 03/02/20 01:44 - facial swelling metronidazole Allergy Mild FACE Verified 03/02/20 01:44 SWELLING strawberry Allergy Mild HIVES Verified 03/02/20 01:44 alprazolam Allergy Unknown RED FACE, Verified 03/02/20 01:44 FACE SWELLING lactose AdvReac Intermediate VOMTING Verified 03/02/20 01:44 DIARRHEA ABDOMINAL PAIN-LACTOSE INTOLERANCE prednisone AdvReac Mild AGGRESSIVE Verified 03/02/20 01:44 BEHAVIOR colesevelam AdvReac Unknown unknown Verified 03/02/20 01:44 lithium AdvReac Unknown jitters Verified 03/02/20 01:44 Consultations 03/24/20 18:18 ED Decision to Admit Stat Hospital Course (1) Substernal chest pain: (2) Productive cough: Chest pain, cough, shortness of breath. With remarkable improvement in symptoms with iv diuresis, no leukocytosis, negative procalcitonin, CXR reports; suspicion for CAP is low Though low suspicion based on history, COVID 19 test was sent. Still awaiting result. Patient provided education regarding home isolation until result is out BNP is 938 Likely mild acute on chronic diastolic heart failure Patient got iv lasix with resolution of symptoms One of blood culture bottle growing corynebacterium. Likely contamination Antibiotics started empirically discontinued Discharged on Antifungal topical for intertrigo (3) Chronic respiratory failure with hypoxia, on home oxygen therapy: Has COPD, DARIUS on BIPAP Currently at baseline O2 requirement Still smokes about 10cig/day Counselled on need for smoking cessation on admission but patient stated she is not interested (4) Obstructive sleep apnea treated with BiPAP: Continue BIPAP HS (5) Insomnia: Continue home meds (6) Chronic pain Continue home narcotics Confirmed on PDMP. Patient will benefit from gradual wean off if possible due to multiple meds that could pose risk (7) DM2 Continue home lantus 18U BID Carb controlled diet Had some hypoglycemic and hyperglycemic episodes while inpatient Patient provided DM education Advised to monitor blood glucose at home (8) Hypertension Continue home antihypertensives (9) Atrial fibrillation Paroxysmal as patient currently remains in sinus rhythm Continue home metoprolol Continue warfarin INR currently therapeutic (10) Mood disorder Continue home meds Total Time Total Time Spent Total Time Spent (In Minutes): 40 Total Time Includes: Examination of the Patient, Discharge Planning and Medication Reconciliation Discharge Plan Discharge Items Patient Disposition: Home - Self-Care Reason For Visit: CHEST PAIN Discharge Diagnosis: Chest pain Intertrigo Mild acute on chronic diastolic CHF Activity: Resume your previous activity Non-emergency contact: Primary Care Provider Call non-emergency contact if: you have any medication questions Follow-up/Referrals: Manoj Goins DO [Primary Care Provider] - 03/30/20 11:20 am (03/30/2020 11:20 AM Provider Manoj Goins DO Department General Internal Medicine [facility] ) Diet: Carb Consistent or DM2 and Heart Healthy Fluids: 1800ml (7 cups) Addtl Attending Provider Instructions: Mrs Minaya. YHome Isolation COVID-19 Instructions The following information about Home Isolation is from the CDC Website: https://www.cdc.gov/coronavirus/2019-ncov/hcp/hudirbdb-uqxjnmt-wsnenj.html Stay home except to get medical care People who are mildly ill with COVID-19 are able to isolate at home during their illness. You should restrict activities outside your home, except for getting medical care. Do not go to work, school, or public areas. Avoid using public transportation, ride-sharing, or taxis. Separate yourself from other people and animals in your home People: As much as possible, you should stay in a specific room and away from other people in your home. Also, you should use a separate bathroom, if available. Animals: You should restrict contact with pets and other animals while you are sick with COVID-19, just like you would around other people. Although there have not been reports of pets or other animals becoming sick with COVID-19, it is still recommended that people sick with COVID-19 limit contact with animals until more information is known about the virus. When possible, have another member of your household care for your animals while you are sick. If you are sick with COVID-19, avoid contact with your pet, including petting, snuggling, being kissed or licked, and sharing food. If you must care for your pet or be around animals while you are sick, wash your hands before and after you interact with pets and wear a face mask. Call ahead before visiting your doctor If you have a medical appointment, call the healthcare provider and tell them that you have or may have COVID-19. This will help the healthcare providers office take steps to keep other people from getting infected or exposed. Wear a face mask You should wear a face mask when you are around other people (e.g., sharing a room or vehicle) or pets and before you enter a healthcare providers office. If you are not able to wear a face mask (for example, because it causes trouble breathing), then people who live with you should not stay in the same room with you, or they should wear a face mask if they enter your room. Cover your coughs and sneezes Cover your mouth and nose with a tissue when you cough or sneeze. Throw used tissues in a lined trash can. Immediately wash your hands with soap and water for at least 20 seconds or, if soap and water are not available, clean your hands with an alcohol-based hand prospecting driller helper that contains at least 60% alcohol. Clean your hands often Wash your hands often with soap and water for at least 20 seconds, especially after blowing your nose, coughing, or sneezing; going to the bathroom; and before eating or preparing food. If soap and water are not readily available, use an alcohol-based hand prospecting driller helper with at least 60% alcohol, covering all surfaces of your hands and rubbing them together until they feel dry. Soap and water are the best option if hands are visibly dirty. Avoid touching your eyes, nose, and mouth with unwashed hands. Avoid sharing personal household items You should not share dishes, drinking glasses, cups, eating utensils, towels, or bedding with other people or pets in your home. After using these items, they should be washed thoroughly with soap and water. Clean all high-touch surfaces everyday High touch surfaces include counters, tabletops, doorknobs, bathroom fixtures, toilets, phones, keyboards, tablets, and bedside tables. Also, clean any surfaces that may have blood, stool, or body fluids on them. Use a household cleaning spray or wipe, according to the label instructions. Labels contain instructions for safe and effective use of the cleaning product including precautions you should take when applying the product, such as wearing gloves and making sure you have good ventilation during use of the product. Monitor your symptoms Seek prompt medical attention if your illness is worsening (e.g., difficulty breathing).Beforeseeking care, call your healthcare provider and tell them that you have, or are being evaluated for, COVID-19. Put on a face mask before you enter the facility. These steps will help the healthcare providers office to keep other people in the office or waiting room from getting infected or exposed. Ask your healthcare provider to call the local or state health department. Persons who are placed under active monitoring or facilitated self- monitoring should follow instructions provided by their local health department or occupational health professionals, as appropriate. When working with your local health department check their available hours. If you have a medical emergency and need to call 911, notify the dispatch per sonnel that you have, or are being evaluated for COVID-19. If possible, put on a face mask before emergency medical services arrive. Discontinuing home isolation Patients with confirmed COVID-19 should remain under home isolation precautions until the risk of secondary transmission to others is thought to be low. The decision to discontinue home isolation precautions should be made on a [id number] basis, in consultation with healthcare providers and state and local health departments. ou came to the hospital complaining of chest pain, cough and shortness of breath. You were evaluated and found to have mild congestive heart failure and was treated with diuretics. You also had a fungal skin infection. Please follow up with your Primary Doctor. Your COVID19 test result is still pending. Please follow instructions of home isolation until result come out. It was a pleasure taking care of you. Pending Studies at Discharge: Yes Studies:: COVID19 Stand-Alone Forms: [employer] Tablet Themes, Smoking Cessation Medications and DC Order Prescriptions: New clotrimazole 1 % Cream 1 applic EXT BID Qty: 15 RF: 0 Continued amitriptyline 50 mg Tablet 50 mg PO HS RF: 0 gabapentin 800 mg Tablet 800 mg PO BID RF: 0 amlodipine 10 mg Tablet 10 mg PO QAM RF: 0 diclofenac sodium 1 % Gel 2 g TOPICAL QID PRN (Reason: Pain) RF: 0 alendronate 70 mg tablet 70 mg PO WK RF: 0 warfarin 5 mg tablet 7.5 mg PO 2XWK RF: 0 diltiazem HCl 120 mg capsule,extended release 24hr 120 mg PO QAM RF: 0 potassium chloride 10 mEq tablet extended release 10 meq PO TID RF: 0 pantoprazole 40 mg tablet,delayed release (DR/EC) 40 mg PO QAM RF: 0 Lantus U-100 Insulin 100 unit/mL solution 18 unit SUBCUT BID RF: 0 metoprolol tartrate 50 mg Tablet 100 mg PO BID Qty: 120 RF: 2 multivitamin Tablet 1 tab PO QAM RF: 0 furosemide 40 mg Tablet 80 mg PO BID RF: 0 atorvastatin 40 mg Tablet 40 mg PO HS RF: 0 fentanyl 50 mcg/hr Patch 72 Hour 50 mcg TRANSDERMAL [id number] RF: 0 cetirizine 10 mg Tablet 10 mg PO HS RF: 0 venlafaxine 150 mg Capsule,Extended Release 24hr 150 mg PO QAM RF: 0 ondansetron 8 mg Tablet,Disintegrating 8 mg PO BID PRN (Reason: Nausea) RF: 0 methocarbamol 750 mg Tablet 750 mg PO TID RF: 0 calcitriol 0.5 mcg Capsule 0.5 mcg PO QAM RF: 0 warfarin 5 mg Tablet 5 mg PO 5XWK RF: 0 epinephrine [EpiPen] 0.3 mg/0.3 mL Auto-Injector 0.3 mg IM DIRECTED PRN (Reason: Allergic Reaction) RF: 0 docusate sodium 100 mg Tablet 100 mg PO DAILY PRN (Reason: Constipation) RF: 0 Spiriva with HandiHaler 18 mcg Capsule, W/Inhalation Device 1 cap INHALATION QAM RF: 0 cholecalciferol (vitamin D3) [Vitamin D3] 1,000 unit Tablet 1,000 unit PO QAM RF: 0 venlafaxine 75 mg Capsule,Extended Release 24hr 75 mg PO QAM RF: 0 trazodone 100 mg Tablet 200 mg PO HS RF: 0 zolpidem 5 mg Tablet 5 mg PO HS RF: 0 oxycodone 5 mg Tablet 10 mg PO Q6H PRN (Reason: Pain) RF: 0 levalbuterol HCl 1.25 mg/3 mL solution for nebulization 1.25 mg INHALATION Q4H PRN (Reason: Wheezing) RF: 0 albuterol sulfate [Proventil HFA] 90 mcg/actuation HFA aerosol inhaler 2 puffs INH Q6H PRN (Reason: Shortness Of Breath Or Wheezing) RF: 0 Discharge Orders: Discharge Order (Routine); Ordered 03/27/20 Ordered By: Asha Hollins/Other Patient Handouts: COVID-19 Home Care, How COVID-19 Spreads Admission Data Admit Date/Time: 03/26/20 18:03 Attending Provider: Asha Glynn I. Admit Provider: Asha Glynn I. Primary Care Provider: Manoj Goins Other Providers: Asha Glynn I. Other Interventions: Discharge Summary Assessment (RN) Last Done: 03/27/20 12:05 DC Date/Time DO NOT enter until pt leaves facility: 03/27/20 13:04
[2020-03-27 12:07] VITALS: PULSE 62
[2020-03-27] MEDS ORDERED: WARFARIN SOD 7.5 MG TAB PO SCH (16:00)
== END 2020-03-27 13:04 | disposition home or self-care (01) | DRG 292 ==
LOC: ED 14:17 → 2S 14:17

== ENCOUNTER 2020-05-15 00:35 | Observation (INO) ==
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
[2020-05-15 01:01] LABS: Basophils # (auto) 0.02 K/uL (0-0.2); Basophils % (auto) 0.3 %; Eosinophils # (auto) 0.18 K/uL (0-0.5); Eosinophils % (auto) 2.4 %; Hematocrit (blood only) 38.5 % (37-47); Hemoglobin 12.7 g/dL (12.0-16.0); Immature Granulocytes # (auto) 0.03 K/uL (0.00-0.02); Immature Granulocytes % (auto) 0.4 %; Lymphocytes # (auto) 1.88 K/uL (1.2-3.4); Lymphocytes % (auto) 24.8 %; Mean Corpuscular Hemoglobin 30.2 pg (25-34); Mean Corpuscular Volume 91.4 fL (80-100); Mean Platelet Volume 9.8 fL (7.4-10.4); Monocytes # (auto) 0.82 K/uL (0.11-0.59); Monocytes % (auto) 10.8 %; Neutrophils # (auto) 4.65 K/uL (1.4-6.5); Neutrophils % (auto) 61.3 %; Platelet Count 270 K/uL (130-400); RDW Coefficient of Variation 14.2 % (11.5-14.5); Red Blood Count 4.21 M/uL (4.2-5.4); White Blood Count 7.58 K/uL (4.8-10.8)
[2020-05-15 01:21] LABS: Alanine Aminotransferase 25 U/L (12-78); Albumin Level 2.8 gm/dl (3.4-5.0); Aspartate Aminotransferase 22 U/L (15-37); BUN Creatinine Ratio 14.5 (10-20); Blood Urea Nitrogen 21 mg/dl (7-18); Calcium 8.9 mg/dl (8.5-10.1); Carbon Dioxide 29 mmol/L (21-32); Chloride 101 mmol/L (98-107); Creatinine Clr Calc Pharmacy 47.9 ml/min; Est GFR (African American) 45.8; Est GFR (Non-African American) 39.5; Glucose 188 mg/dl (70-99); Lipase 106 U/L (73-393); Potassium 4.1 mmol/L (3.5-5.1); Sodium 136 mmol/L (136-145)
[2020-05-15 01:22] LABS: Partial Thromboplastin Ratio 1.6; Prothrombin Time 29.5 Seconds (9.0-12.0)
[2020-05-15 01:26] LABS: Albumin Globulin Ratio 0.7 (0.9-2); Alkaline Phosphatase 86 U/L (45-117); Bilirubin,Total 0.2 mg/dl (0.2-1); Globulin 4.2 gm/dl (2.5-4.0); Troponin I < 0.015 ng/ml (0-0.045)
[2020-05-15 01:40] LABS: Partial Thromboplastin Time 45.3 Seconds (21.0-31.0)
[2020-05-15] MEDS ORDERED: ACETAMINOPHEN 1,000 MG/100 ML VIAL IV STA (01:58)
--- NOTE | 2020-05-15 03:06 | History & Physical Report ---
Date of Service May 15, 2020 Assessment & Plan (1) Chest pain: Rule out ACS in light of cardiac history hx PAF/atrial flutter status post ablation on Coumadin px NSR INR therapeutic chronic diastolic heart failure (EF 65-70%, TTE 2019), congestion on CXR Traumatic RLE pain rule out bony injury chronic respiratory failure secondary to COPD/pulmonary hypertension on home O2 DARIUS on BiPAP Pulmonary status at baseline HTN, stable hx CVA as per records, chronic pain on narcotics DM2 insulin requiring, suboptimal control as of recent outpatient hemoglobin A1c of 8.3, March 2020 CRI creatinine at baseline anxiety/mood disorder, at baseline History medication noncompliance Ongoing tobacco abuse OBS PCU Follow troponin Cardiology consult in a.m. RE chest pain N.p.o. until patient seen by cardiology in a.m. Continue home Lasix Follow official right lower extremity x-ray results Basal insulin adjusted for n.p.o. status for now, ISS BG goal [id number], carb count coverage once diet advanced Nicotine patch PRN DVT prophylaxis. Coumadin INR goal between 2 and 3 Full code Text document was generated using [employer] voice recognition software. It may contain grammatical or spelling errors. Kindly contact undersigned for clarification of any documentation item in qu estion. History of Present Illness Chief Complaint: Chest pain Primary Care Provider: Manoj Goins, History obtained from patient and records. Medical history is significant for chronic diastolic heart failure, EF of 65-70% (TTE 2019), atrial flutter status post ablation on Coumadin, cardiac fibroblastoma status post surgery, HTN chronic respiratory failure secondary to COPD on home O2, DARIUS on BIPAP, history of pulmonary hypertension, ongoing tobacco abuse, hx CVA as per records, chronic pain on narcotics, DM2 insulin requiring, CRI (baseline crea 1.4-1,5), gastroparesis per records, anxiety/mood disorder. Recent confinement last month for chest pain, mild CHF. Last night patient was already lying down on her bed when she experienced achy left-sided chest discomfort going to her right side without shortness of breath or diaphoresis. No unusual cough symptoms. No unusual weight gain. No prior episodes as per patient. EMS summoned to patient's home. Patient sustained right lower leg/ankle injury causing pain in transit to the ER. Chest pain relieved by Tylenol administration at the ER. MEDICAL HISTORY: As above. SURGERIES: She has had hysterectomy, appendectomy, cholecystectomy, lumpectomy, mitral valve repair, tubal ligation, umbilical hernia repair, carpal tunnel surgery, Ear surgery, section, FAMILY HISTORY: Heart disease. IBD, diabetes PERSONAL AND SOCIAL HISTORY: Eight cigarettes a day, disabled, no chronic intake of alcoholic beverages. Allergies Allergy/AdvReac Type Severity Reaction Status Date / Time bee venom protein (honey bee) Allergy Severe SWELLING Verified 05/15/20 02:14 lisinopril Allergy Intermediate FACE Verified 05/15/20 02:14 SWELLING potato Allergy Intermediate BBQ chips Verified 05/15/20 02:14 - facial swelling metronidazole Allergy Mild FACE Verified 05/15/20 02:14 SWELLING strawberry Allergy Mild HIVES Verified 05/15/20 02:14 alprazolam Allergy Unknown RED FACE, Verified 05/15/20 02:14 FACE SWELLING lactose AdvReac Intermediate VOMTING Verified 05/15/20 02:14 DIARRHEA ABDOMINAL PAIN-LACTOSE INTOLERANCE prednisone AdvReac Mild AGGRESSIVE Verified 05/15/20 02:14 BEHAVIOR colesevelam AdvReac Unknown unknown Verified 05/15/20 02:14 lithium AdvReac Unknown jitters Verified 05/15/20 02:14 Home Medications Home Medications Medication Instructions Recorded Confirmed Type Spiriva with HandiHaler 1 cap INHALATION QAM 06/19/18 05/15/20 History atorvastatin 40 mg PO HS 06/19/18 05/15/20 History cetirizine 10 mg PO HS 06/19/18 05/15/20 History cholecalciferol (vitamin D3) 1,000 unit PO QAM 06/19/18 05/15/20 History [Vitamin D3] docusate sodium 100 mg PO DAILY PRN 06/19/18 05/15/20 History epinephrine [EpiPen] 0.3 mg IM DIRECTED PRN 06/19/18 05/15/20 History fentanyl 50 mcg TRANSDERMAL [id number] 06/19/18 05/15/20 History furosemide 80 mg PO BID 06/19/18 05/15/20 History methocarbamol 750 mg PO TID 06/19/18 05/15/20 History multivitamin 1 tab PO QAM 06/19/18 05/15/20 History ondansetron 8 mg PO BID 06/19/18 05/15/20 History venlafaxine 150 mg PO QAM 06/19/18 05/15/20 History warfarin 5 mg PO 5XWK 06/19/18 05/15/20 History oxycodone 10 mg PO Q6H PRN 09/14/18 05/15/20 History trazodone 200 mg PO HS 09/14/18 05/15/20 History venlafaxine 75 mg PO QAM 09/14/18 05/15/20 History zolpidem 5 mg PO HS 09/14/18 05/15/20 History amitriptyline 50 mg PO HS 05/28/19 05/15/20 History diclofenac sodium 2 g TOPICAL QID PRN 05/28/19 05/15/20 History gabapentin 800 mg PO BID 05/28/19 05/15/20 History alendronate 70 mg tablet 70 mg PO WK tab 06/10/19 05/15/20 History warfarin 7.5 mg PO 2XWK 09/19/19 05/15/20 History Lantus U-100 Insulin 16 unit SUBCUT BID 03/02/20 05/15/20 History diltiazem HCl 120 mg PO QAM 03/02/20 05/15/20 History metoprolol tartrate 100 mg PO BID #120 tab 03/02/20 05/15/20 Rx pantoprazole 40 mg PO QAM 03/02/20 05/15/20 History potassium chloride 10 meq PO TID 03/02/20 05/15/20 History albuterol sulfate [Proventil HFA] 2 puffs INH Q6H PRN 03/24/20 05/15/20 History levalbuterol HCl 1.25 mg INHALATION Q4H PRN 03/24/20 05/15/20 History amlodipine 5 mg PO DAILY 05/15/20 05/15/20 History Past Med/Surg History Medical History Acute renal failure Anemia remote hx blood transfusion (5+ years ago)= no definitive etiology Anxiety Asthma 3LPM via n/c mostly continuous (although patient states she does not wear this all the time) Atrial fibrillation a. fib/a. flutter s/p cardioversion (2017) Atrial fibrillation with RVR [place] esophagus Bipolar disorder Chronic back pain Chronic cor pulmonale Chronic kidney disease stage III Chronic obstructive pulmonary disease 3LPM via n/c mostly continuous (although patient states she does not wear this all the time) Chronic respiratory failure CVA (cerebral vascular accident) 2004 (per records; patient denies) Degeneration of cervical intervertebral disc Depression Diastolic CHF, chronic DM type 2 (diabetes mellitus, type 2) Elevated troponin Fibromyalgia Gastroparesis GERD (gastroesophageal reflux disease) History of Clostridium difficile infection History of DVT (deep vein thrombosis) left "hand" 2005- on AC HTN (hypertension) Hyperlipidemia Hyponatremia Hypothyroidism 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 Nocturnal hypoxemia Obesity Obstructive sleep apnea treated with BiPAP Osteoarthritis Post traumatic stress disorder Surgical History H/O: hysterectomy History of adenoidectomy History of appendectomy LAPAROSCOPY History of cardiac cath 2004= no stents History of cataract surgery BILATERAL History of cholecystectomy LAPAROSCOPY History of colonoscopy History of esophagogastroduodenoscopy (EGD) History of herniorrhaphy UMBILICAL History of hysterectomy EMIGDIO WITH BSO History of mitral valve repair 2004 + resection fibroelastoma History of tonsillectomy Hx of appendectomy Hx of lumpectomy right breast BENIGN Hx of tubal ligation Hx of umbilical hernia repair S/P trigger finger release RIGHT/LEFT Family History Mother Family history of diabetes mellitus Sister Family history of diabetes mellitus Social History Smoking Status: Current every day smoker Tobacco Type: Cigarettes Cigarettes Per Day: 10; Second Hand Exposure: No; Hx Alcohol Use: No Hx Substance Use: No Preferred Language: Greek Communication Ability: Effective Visual Impairment: No Limitations Lumber Driver Required: No Beliefs That Will Affect Care: None marital status: / Current Living Situation: Alone Current Living Situation Comment: caregiver helps Feels Safe at Home: Yes Review of Systems Review of Systems: As per HPI, all 10 systems reviewed, all other ROS negative Physical Exam Physical Exam: GENERAL: Comfortable, obese, no respiratory distress SKIN: Normal color, warm HEENT: [place] palpebral conjunctivae, no ptosis, dry buccal mucosa, nasal cannula in place NECK : Supple, short neck, no tenderness CHEST : Expiratory wheezes, no tenderness HEART : Bradycardia, no obvious murmurs ABDOMEN: Some distention, nontender EXTREMITIES : LE venous stasis, RLE tenderness, no other conspicuous deformities noted NEUROLOGIC : Coherent, no facial asymmetry, no other gross focality Results & Data Results & Data ([facility]) Vital Signs (Past 12 Hours) Vital Signs Temp Pulse Resp BP Pulse Ox 05/15/20 02:30 56 L 15 148/60 H 100 05/15/20 02:00 16 138/73 98 05/15/20 01:31 15 109/53 L 99 05/15/20 01:00 22 150/63 H 97 05/15/20 00:46 36.8 C 77 20 134/52 L 99 05/15/20 00:45 66 19 134/52 L 98 Laboratory Results Laboratory Results WBC 7.58 K/uL (4.8-10.8) 05/15/20 00:50 RBC 4.21 M/uL (4.2-5.4) 05/15/20 00:50 Hgb 12.7 g/dL (12.0-16.0) 05/15/20 00:50 Hct 38.5 % (37-47) 05/15/20 00:50 MCV 91.4 fL (80-100) 05/15/20 00:50 MCH 30.2 pg (25-34) 05/15/20 00:50 MCHC 33.0 g/dL (32-36) 05/15/20 00:50 RDW Std Deviation 48.0 fL (36.4-46.3) H 05/15/20 00:50 RDW Coeff of [place] 14.2 % (11.5-14.5) 05/15/20 00:50 Plt Count 270 K/uL (130-400) 05/15/20 00:50 MPV 9.8 fL (7.4-10.4) 05/15/20 00:50 Immature Gran % (Auto) 0.4 % 05/15/20 00:50 Neut % (Auto) 61.3 % 05/15/20 00:50 Lymph % (Auto) 24.8 % 05/15/20 00:50 [place] % (Auto) 10.8 % 05/15/20 00:50 Eos % (Auto) 2.4 % 05/15/20 00:50 Baso % (Auto) 0.3 % 05/15/20 00:50 Neut # (Auto) 4.65 K/uL (1.4-6.5) 05/15/20 00:50 Lymph # (Auto) 1.88 K/uL (1.2-3.4) 05/15/20 00:50 [place] # (Auto) 0.82 K/uL (0.11-0.59) H 05/15/20 00:50 Eos # (Auto) 0.18 K/uL (0-0.5) 05/15/20 00:50 Baso # (Auto) 0.02 K/uL (0-0.2) 05/15/20 00:50 Immature Gran # (Auto) 0.03 K/uL (0.00-0.02) H 05/15/20 00:50 PT 29.5 Seconds (9.0-12.0) H 05/15/20 00:50 INR 3.0 (0.9-1.1) H 05/15/20 00:50 APTT 45.3 Seconds (21.0-31.0) H* 05/15/20 00:50 PTT Ratio 1.6 05/15/20 00:50 Sodium 136 mmol/L (136-145) 05/15/20 00:50 Potassium 4.1 mmol/L (3.5-5.1) 05/15/20 00:50 Chloride 101 mmol/L (98-107) 05/15/20 00:50 Carbon Dioxide 29 mmol/L (21-32) 05/15/20 00:50 Anion Gap 6.0 (3-11) 05/15/20 00:50 BUN 21 mg/dl (7-18) H 05/15/20 00:50 Creatinine 1.41 mg/dl (0.6-1.2) H 05/15/20 00:50 Est Cr Clr Drug Dosing 47.9 ml/min 05/15/20 00:50 Est GFR ( Amer) 45.8 05/15/20 00:50 Est GFR (Non-Af Amer) 39.5 05/15/20 00:50 BUN/Creatinine Ratio 14.5 (10-20) 05/15/20 00:50 Glucose 188 mg/dl (70-99) H 05/15/20 00:50 Calcium 8.9 mg/dl (8.5-10.1) 05/15/20 00:50 Total Bilirubin 0.2 mg/dl (0.2-1) 05/15/20 00:50 AST 22 U/L (15-37) 05/15/20 00:50 ALT 25 U/L (12-78) 05/15/20 00:50 Alkaline Phosphatase 86 U/L (45-117) 05/15/20 00:50 Troponin I < 0.015 ng/ml (0-0.045) 05/15/20 00:50 Total Protein 7.0 gm/dl (6.4-8.2) 05/15/20 00:50 Albumin 2.8 gm/dl (3.4-5.0) L 05/15/20 00:50 Globulin 4.2 gm/dl (2.5-4.0) H 05/15/20 00:50 Albumin/Globulin Ratio 0.7 (0.9-2) L 05/15/20 00:50 Lipase 106 U/L (73-393) 05/15/20 00:50 Diagnostic Findings Chest x-ray as per my interpretation cardiomegaly, congestion Right knee x-ray read pending Right tibia-fibula x-ray read pending Right ankle x-ray read pending EKG as per my interpretation : Rate 65, NSR, RAD, RBBB, T wave abnormalities inferior leads (1) Chest pain Chest pain type: unspecified Qualified Code(s): R07.9 - Chest pain, unspecified
[2020-05-15] MEDS ORDERED: ALBUT/IPRATROP 3MG/0.5MG NEB 3 ML VIAL NEB STA (03:10)
[2020-05-15] MEDS ORDERED: CARBOHYDRATES FOR HYPOGLYCEMIA PO PRN (04:22)
[2020-05-15] MEDS ORDERED: HYDROmorphone INJ 0.5 MG/0.5 ML SYR IV PRN (04:22)
[2020-05-15] MEDS ORDERED: PROMETHAZINE HCL 12.5 MG in SODIUM CHLORIDE 0.9% 50 ML IV PRN (04:22)
[2020-05-15] MEDS ORDERED: GLUCAGON FOR INJ 1 MG VIAL SQ PRN (04:22)
[2020-05-15] MEDS ORDERED: ZOLPIDEM TARTRATE 5 MG TAB PO PRN (04:22)
[2020-05-15] MEDS ORDERED: OXYCODONE HCL IR 5 MG TAB (IMMEDIATE RELEASE) PO PRN (04:22)
[2020-05-15] MEDS ORDERED: NITROGLYCERIN SL 0.4 MG/TAB TAB SL PRN (04:22)
[2020-05-15] MEDS ORDERED: DEXTROSE 50% 50 ML SYRINGE IV PRN (04:22)
[2020-05-15] MEDS ORDERED: GLUCOSE 40% GEL 15 GM TUBE PO PRN (04:22)
[2020-05-15] MEDS ORDERED: GLUCOSE 10 TABS/TUBE PO PRN (04:22)
[2020-05-15] MEDS ORDERED: DOCUSATE SODIUM 100 MG CAP PO PRN (04:36)
[2020-05-15] MEDS: CHECK FENTANYL PATCH PLACEMENT SCH ×4 (05:08→23:36)
[2020-05-15] MEDS: INSULIN ASPART 100 UNITS/ML 3 ML PEN SC SCH ×4 (05:12→20:46)
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
--- NOTE | 2020-05-15 07:26 | XRay Report ---
XR chest 1V portable CLINICAL HISTORY: Chest Pain COMPARISON STUDY: Chest radiograph March 24, 2020. FINDINGS: Moderate cardiomegaly is noted. A prosthetic mitral valve is noted. Interstitial pulmonary edema is noted. This is mildly improved compared to exam of March 24, 2020. There is no pneumothorax o r pleural effusion. Right chest wall deformity with herniation of a small portion of the lungs is chr onic. IMPRESSION: Interstitial pulmonary edema. ACT 112: Negative or not required by law. Electronically signed by: Herman Chavez M.D. 05/15/2020 7:25 AM
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
[2020-05-15 07:49] LABS: Chol HDL Ratio 4; Cholesterol 193 mg/dl (0-200); HDL Cholesterol 47 mg/dl; LDL Cholesterol Calculated 115 mg/dl; Triglycerides 155 mg/dl (0-150); Troponin I < 0.015 ng/ml (0-0.045); VLDL Cholesterol 31 mg/dl
[2020-05-15] MEDS: MULTIVITAMIN TAB PO SCH (08:38)
[2020-05-15] MEDS: METOPROLOL TARTRATE 100 MG TAB PO SCH ×2 (08:38→20:44)
[2020-05-15] MEDS: PANTOprazole 40 MG TAB PO SCH (08:39)
[2020-05-15] MEDS: VENLAFAXINE HCL XR 150 MG CAPXR PO SCH (08:39)
[2020-05-15] MEDS: VENLAFAXINE HCL XR 75 MG CAPXR PO SCH (08:39)
[2020-05-15] MEDS: GABAPENTIN 800 MG TAB PO SCH ×2 (08:40→20:45)
[2020-05-15] MEDS: FUROSEMIDE 80 MG TAB PO SCH ×2 (08:40→16:54)
[2020-05-15] MEDS: METHOCARBAMOL 750 MG TABLET PO SCH ×3 (08:41→20:44)
[2020-05-15] MEDS: POTASSIUM CHLORIDE 10 MEQ TABCR PO SCH ×3 (08:41→16:55)
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
[2020-05-15] MEDS: UMECLIDINIUM BROMIDE 62.5MCG/BLISTER 7 PUFFS/INHALER INH SCH (08:42)
[2020-05-15] MEDS ORDERED: fentaNYL 50 MCG/HR TDSY TD SCH (09:00)
[2020-05-15] MEDS: INSULIN GLARGINE SOLOSTAR 100 UNITS/ML 3 ML PEN SC SCH ×2 (09:14→20:45)
[2020-05-15] MEDS: AMLODIPINE BESYLATE 5 MG TAB PO SCH (12:38)
[2020-05-15] MEDS: dilTIAZem HCL 120 MG CAPCR PO SCH (12:39)
[2020-05-15] MEDS ORDERED: Nursing to Pharmacy Communication SCH (16:15)
--- NOTE | 2020-05-15 16:33 | Hospitalist Progress Note ---
Date of Service May 15, 2020 Assessment & Plan (1) Chest pain: Presented with left-sided chest pain without any exertion and without any associated symptoms Given significant cardiac history she was admitted to telemetry unit to rule out possible ACS Has had negative cardiac markers and any significant EKG changes Remains free of any pain Appreciate cardiology input and recommendation PAF/atrial flutter status post ablation on Coumadin px NSR INR therapeutic Chronic diastolic heart failure (EF 65-70%, TTE 2019), congestion on CXR Clinically euvolemic (2) S/P MVR (mitral valve repair): Cervical stenosis status post MVR (3) Chronic respiratory failure with hypoxia, on home oxygen therapy: (4) Severe obstructive sleep apnea: Continue CPAP (5) Chronic obstructive pulmonary disease: chronic respiratory failure secondary to COPD/pulmonary hypertension on home O2 DARIUS on BiPAP Pulmonary status at baseline (6) CVA (cerebral vascular accident): No new findings (7) Anxiety: History of depression No acute symptoms (8) HTN (hypertension): Remains stable (9) DM type 2 (diabetes mellitus, type 2): DM2 insulin requiring, suboptimal control as of recent outpatient hemoglobin A1c of 8.3, March 2020 Has been on SSI Other significant medical conditions remain stable DVT prophylaxis On Coumadin-INR therapeutic Admission and Anticipated Discharge Date Admission Date: May 15, 2020 Subjective 05/15/2020 The patient was seen and examined in telemetry unit She was admitted with atypical chest pain and remains stable as of this morning Denies any chest pain, palpitation, shortness of breath, any abdominal pain nausea and/or vomiting Review of Systems Review of Systems: All systems reviewed and are unremarkable except as noted below Cardiovascular: no chest pain and no palpitations Physical Exam Physical Exam: Lying in bed comfortably Constitutional: well developed, well nourished and + morbidly obese; no acute distress and not ill appearing Eyes: PERRL, conjunctivae normal, anicteric sclerae ENMT: external ear and nose normal, oropharynx normal Neck: trachea midline, no thyromegaly Respiratory: normal respiratory effort and + respiratory distress Ausc ultation: lungs clear to auscultation bilaterally Cardiovascular: Rate/Rhythm: regular rate and regular rhythm Heart Sounds: + murmur (2/6 ESM over precordium) Gastrointestinal (Abdomen): Inspection/Auscultation: abdomen normal to inspection and normal bowel sounds Percussion/Palpation: abdomen soft; abdomen nontender Musculoskeletal: No acute arthritis involving any joints Lymphatic: no cervical or axillary lymphadenopathy Results & Data Results & Data ([facility]) Vital Signs (Past 12 Hours) Vital Signs Temp Pulse Pulse Resp BP Pulse Ox 05/15/20 15:06 36.6 C 65 18 137/71 97 05/15/20 11:16 36.5 C 55 L 18 126/76 97 05/15/20 07:46 36.4 C L 57 L 18 122/74 99 05/15/20 04:56 57 L Laboratory Results Short CBC 05/15/20 Range/Units 00:50 WBC 7.58 (4.8-10.8) K/uL Hgb 12.7 (12.0-16.0) g/dL Hct 38.5 (37-47) % Plt Count 270 (130-400) K/uL BMP 05/15/20 00:50 Sodium 136 Potassium 4.1 Chloride 101 Carbon Dioxide 29 BUN 21 H Creatinine 1.41 H Glucose 188 H Calcium 8.9 Cardiac Enzymes 05/15/20 05/15/20 Range/Units 00:50 06:41 Troponin I < 0.015 < 0.015 (0-0.045) ng/ml Liver Function 05/15/20 Range/Units 00:50 Total Bilirubin 0.2 (0.2-1) mg/dl AST 22 (15-37) U/L ALT 25 (12-78) U/L Alkaline Phosphatase 86 (45-117) U/L Albumin 2.8 L (3.4-5.0) gm/dl Medications Administered Current Inpatient Medications Albuterol (Albut/Ipratrop 3mg/0.5mg Neb 3 Ml Vial) 3 ml NEB Q2H PRN PRN Reason: Wheezing Stop: 06/14/20 04:21 Amitriptyline HCl (Amitriptyline Hcl 50 Mg Tab) 50 mg PO HS JORGE Stop: 06/14/20 20:59 Amlodipine Besylate (Amlodipine Besylate 5 Mg Tab) 5 mg PO DAILY JORGE Stop: 06/14/20 08:59 Last Admin: 05/15/20 12:38 Dose: 5 mg Documented by: Atorvastatin Calcium (Atorvastatin 40 Mg Tab) 40 mg PO HS JORGE Stop: 06/14/20 20:59 Cetirizine HCl (Cetirizine Hcl 10 Mg Tablet) 10 mg PO HS JORGE Stop: 06/14/20 20:59 Dextrose (Dextrose 50% 50 Ml Syringe) 25 - 50 ml IV UD PRN; Protocol PRN Reason: Hypoglycemia Protocol Stop: 06/14/20 04:21 Diltiazem HCl (Diltiazem Hcl 120 Mg Capcr) 120 mg PO QAM [facility] Stop: 06/14/20 08:59 Last Admin: 05/15/20 12:39 Dose: Not Given Documented by: Docusate Sodium (Docusate Sodium 100 Mg Cap) 100 mg PO DAILY PRN PRN Reason: Constipation Stop: 06/14/20 04:35 Fentanyl (Fentanyl 50 Mcg/Hr Tdsy) 50 mcg TD Q3D@0900 [facility] Stop: 05/29/20 08:59 Last Admin: 05/15/20 09:13 Dose: 50 mcg Documented by: Furosemide (Furosemide 80 Mg Tab) 80 mg PO [id number] JORGE Stop: 06/14/20 08:59 Last Admin: 05/15/20 08:40 Dose: 80 mg Documented by: Gabapentin (Gabapentin 800 Mg Tab) 800 mg PO BID [facility] Stop: 06/14/20 08:59 Last Admin: 05/15/20 08:40 Dose: 800 mg Documented by: Glucagon (Glucagon For Inj 1 Mg Vial) 1 mg SQ UD PRN; Protocol PRN Reason: Hypoglycemia Protocol Stop: 06/14/20 04:21 Glucose (Glucose 10 Tabs/Tube) 4 - 8 tabs PO UD PRN; Protocol PRN Reason: Hypoglycemia Protocol Stop: 06/14/20 04:21 Glucose (Glucose 40% Gel 15 Gm Tube) 15 - 30 gm PO UD PRN; Protocol PRN Reason: Hypoglycemia Protocol Stop: 06/14/20 04:21 Hydromorphone HCl (Hydromorphone Inj 0.5 Mg/0.5 Ml Syr) 0.5 mg IV Q6H PRN PRN Reason: Pain Stop: 05/29/20 04:21 Promethazine HCl 12.5 mg/ (Sodium Chloride) 50.5 mls @ 202 mls/hr IV Q6H PRN PRN Reason: Nausea And Vomiting Stop: 06/14/20 04:21 Insulin Aspart (Insulin Aspart 100 Units/Ml 3 Ml Pen) 0 units SC ACHS [facility] Stop: 06/14/20 04:59 Insulin Glargine (Insulin Glargine Solostar 100 Units/Ml 3 Ml Pen) 8 units SC BID [facility] Stop: 06/14/20 08:59 Last Admin: 05/15/20 09:14 Dose: 8 units Documented by: Methocarbamol (Methocarbamol 750 Mg Tablet) 750 mg PO TID [facility] Stop: 06/14/20 08:59 Last Admin: 05/15/20 12:38 Dose: 750 mg Documented by: Metoprolol Tartrate (Metoprolol Tartrate 100 Mg Tab) 100 mg PO BID [facility] Stop: 06/14/20 08:59 Last Admin: 05/15/20 08:38 Dose: Not Given Documented by: Miscellaneous (Fentanyl Patch Remove & Waste) 1 ea N/A Q3D@0859 [facility] Stop: 06/14/20 08:58 Last Admin: 05/15/20 09:14 Dose: 1 ea Documented by: Miscellaneous (Check Fentanyl Patch Placement) 1 ea N/A QS [facility] Stop: 06/14/20 04:44 Last Admin: 05/15/20 09:13 Dose: 1 ea Documented by: Miscellaneous (Carbohydrates For Hypoglycemia ) 15 - 30 gm PO UD PRN PRN Reason: Hypoglycemia Protocol Stop: 06/14/20 04:21 Multivitamins (Multivitamin Tab) 1 tab PO QAM [facility] Stop: 06/14/20 08:59 Last Admin: 05/15/20 08:38 Dose: 1 tab Documented by: Nitroglycerin (Nitroglycerin Sl 0.4 Mg/Tab Tab) 0.4 mg SL UD PRN PRN Reason: Chest Pain Stop: 06/14/20 04:21 Oxycodone HCl (Oxycodone Hcl Ir 5 Mg Tab (Immediate Release)) 10 mg PO Q6H PRN PRN Reason: Pain Stop: 05/29/20 04:21 Pantoprazole Sodium (Pantoprazole 40 Mg Tab) 40 mg PO QAM [facility] Stop: 06/14/20 08:59 Last Admin: 05/15/20 08:39 Dose: 40 mg Documented by: Potassium Chloride (Potassium Chloride 10 Meq Tabcr) 10 meq PO TIDM [facility] Stop: 06/14/20 08:59 Last Admin: 05/15/20 12:39 Dose: 10 meq Documented by: Trazodone HCl (Trazodone Hcl 100 Mg Tab) 200 mg PO HS [facility] Stop: 06/14/20 20:59 Umeclidinium [place] (Umeclidinium [place] 62.5mcg/Blister 7 Puffs/Inhaler) 1 puffs INH QAM JORGE Stop: 06/14/20 08:59 Last Admin: 05/15/20 08:42 Dose: 1 puffs Documented by: Venlafaxine HCl (Venlafaxine Hcl Xr 150 Mg Capxr) 150 mg PO QAM JOR[facility] Stop: 06/14/20 08:59 Last Admin: 05/15/20 08:39 Dose: 150 mg Documented by: Venlafaxine HCl (Venlafaxine Hcl Xr 75 Mg Capxr) 75 mg PO QAM JORGE Stop: 06/14/20 08:59 Last Admin: 05/15/20 08:39 Dose: 75 mg Documented by: Zolpidem Tartrate (Zolpidem Tartrate 5 Mg Tab) 5 mg PO HS PRN PRN Reason: insomnia Stop: 06/14/20 04:21 (1) Chest pain Chest pain type: unspecified Qualified Code(s): R07.9 - Chest pain, unspecified
[2020-05-15] MEDS: BENZONATATE 100 MG CAPSULE PO SCH (20:55)
[2020-05-15] MEDS ORDERED: ATORVASTATIN 40 MG TAB PO SCH (21:00)
[2020-05-15] MEDS ORDERED: AMITRIPTYLINE HCL 50 MG TAB PO SCH (21:00)
[2020-05-15] MEDS ORDERED: CETIRIZINE HCL 10 MG TABLET PO SCH (21:00)
[2020-05-15] MEDS ORDERED: TRAZODONE HCL 100 MG TAB PO SCH (21:00)
[2020-05-16] MEDS: ALBUT/IPRATROP 3MG/0.5MG NEB 3 ML VIAL NEB PRN ×3 (03:28→13:21)
--- NOTE | 2020-05-16 06:48 | Electrocardiogram Report ---
Test Reason : Blood Pressure : / mmHG Vent. Rate : 064 BPM Atrial Rate : 064 BPM P-R Int : 198 ms QRS Dur : 152 ms QT Int : 454 ms P-R-T Axes : 068 092 016 degrees QTc Int : 468 ms Normal sinus rhythm with sinus arrhythmia Right bundle branch block Abnormal ECG When compared with ECG of 24-MAR-2020 14:32, No significant change was found Confirmed by Scott Judge [id number] on 05/16/2020 6:48:09 AM Referred By: REFERRED SELF Confirmed By:Scott Judge
[2020-05-16] MEDS: INSULIN ASPART 100 UNITS/ML 3 ML PEN SC SCH ×2 (07:49→12:19)
[2020-05-16 07:51] LABS: Basophils # (auto) 0.02 K/uL (0-0.2); Basophils % (auto) 0.2 %; Eosinophils # (auto) 0.21 K/uL (0-0.5); Eosinophils % (auto) 2.3 %; Hematocrit (blood only) 41.7 % (37-47); Hemoglobin 13.4 g/dL (12.0-16.0); Immature Granulocytes # (auto) 0.01 K/uL (0.00-0.02); Immature Granulocytes % (auto) 0.1 %; Lymphocytes # (auto) 1.02 K/uL (1.2-3.4); Lymphocytes % (auto) 11.3 %; Mean Corpuscular Hgb Conc 32.1 g/dL (32-36); Mean Corpuscular Volume 93.3 fL (80-100); Mean Platelet Volume 9.9 fL (7.4-10.4); Monocytes # (auto) 0.63 K/uL (0.11-0.59); Neutrophils # (auto) 7.16 K/uL (1.4-6.5); Neutrophils % (auto) 79.1 %; Platelet Count 241 K/uL (130-400); RDW Coefficient of Variation 14.3 % (11.5-14.5); RDW Standard Deviation 48.7 fL (36.4-46.3); Red Blood Count 4.47 M/uL (4.2-5.4); White Blood Count 9.05 K/uL (4.8-10.8)
[2020-05-16 07:59] LABS: INR 2.5 (0.9-1.1); Prothrombin Time 24.8 Seconds (9.0-12.0)
[2020-05-16] MEDS: UMECLIDINIUM BROMIDE 62.5MCG/BLISTER 7 PUFFS/INHALER INH SCH (08:10)
[2020-05-16] MEDS: CHECK FENTANYL PATCH PLACEMENT SCH (08:11)
[2020-05-16] MEDS: GABAPENTIN 800 MG TAB PO SCH (08:12)
[2020-05-16] MEDS: VENLAFAXINE HCL XR 150 MG CAPXR PO SCH (08:12)
[2020-05-16] MEDS: METOPROLOL TARTRATE 100 MG TAB PO SCH (08:12)
[2020-05-16] MEDS: BENZONATATE 100 MG CAPSULE PO SCH ×2 (08:12→13:15)
[2020-05-16] MEDS: AMLODIPINE BESYLATE 5 MG TAB PO SCH (08:13)
[2020-05-16] MEDS: PANTOprazole 40 MG TAB PO SCH (08:13)
[2020-05-16] MEDS: dilTIAZem HCL 120 MG CAPCR PO SCH (08:13)
[2020-05-16] MEDS: MULTIVITAMIN TAB PO SCH (08:13)
[2020-05-16] MEDS: METHOCARBAMOL 750 MG TABLET PO SCH ×2 (08:13→13:15)
[2020-05-16] MEDS: POTASSIUM CHLORIDE 10 MEQ TABCR PO SCH ×2 (08:14→12:31)
[2020-05-16] MEDS: FUROSEMIDE 80 MG TAB PO SCH (08:14)
[2020-05-16] MEDS: VENLAFAXINE HCL XR 75 MG CAPXR PO SCH (08:15)
[2020-05-16 08:38] LABS: BUN Creatinine Ratio 16.6 (10-20); Creatinine Clr Calc Pharmacy 50.7 ml/min; Est GFR (African American) 50.1; Est GFR (Non-African American) 43.2; Magnesium 2.1 mg/dl (1.8-2.4)
[2020-05-16] MEDS: INSULIN GLARGINE SOLOSTAR 100 UNITS/ML 3 ML PEN SC SCH (08:50)
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
--- NOTE | 2020-05-16 14:06 | Hospitalist Progress Note ---
Date of Service May 16, 2020 Assessment & Plan (1) Chest pain: Presented with left-sided chest pain without any exertion and without any associated symptoms Given significant cardiac history she was admitted to telemetry unit to rule out possible ACS Has had negative cardiac markers and any significant EKG changes Remains free of any pain Appreciate cardiology input and recommendation No more cardiac symptoms Will be discharged home today with nitroglycerin tablet as needed for chest pain PAF/atrial flutter status post ablation on Coumadin px NSR INR therapeutic Chronic diastolic heart failure (EF 65-70%, TTE 2019), congestion on CXR Clinically euvolemic No signs and/or symptoms of CHF (2) S/P MVR (mitral valve repair): Cervical stenosis status post MVR (3) Chronic respiratory failure with hypoxia, on home oxygen therapy: Oxygen requirement is at her baseline (4) Severe obstructive sleep apnea: Continue CPAP (5) Chronic obstructive pulmonary disease: chronic respiratory failure secondary to COPD/pulmonary hypertension on home O2 DARIUS on BiPAP Pulmonary status at baseline (6) CVA (cerebral vascular accident): No new findings (7) Anxiety: History of depression No acute symptoms (8) HTN (hypertension): Remains stable (9) DM type 2 (diabetes mellitus, type 2): DM2 insulin requiring, suboptimal control as of recent outpatient hemoglobin A1c of 8.3, March 2020 Has been on SSI Other significant medical conditions remain stable DVT prophylaxis On Coumadin-INR therapeutic Will be discharged home this afternoon Admission and Anticipated Discharge Date Admission Date: May 15, 2020 Subjective 05/15/2020 The patient was seen and examined in telemetry unit She was admitted with atypical chest pain and remains stable as of this morning Denies any chest pain, palpitation, shortness of breath, any abdominal pain nausea and/or vomiting 05/16/2020 Patient was seen and examined in telemetry unit She has been feeling lot better and denies any cardiac symptoms She is back to her baseline and wants to be discharged Review of Systems Review of Systems: All systems reviewed and are unremarkable except as noted below Cardiovascular: no chest pain, no chest pain at rest, no dyspnea and no palpitations Physical Exam Physical Exam: Lying in bed comfortably Constitutional: well developed, well nourished and + morbidly obese; no acute distress and not ill appearing Eyes: PERRL, conjunctivae normal, anicteric sclerae ENMT: external ear and nose normal, oropharynx normal Neck: trachea midline, no thyromegaly Respiratory: normal respiratory effort and + respiratory distress Auscultation: lungs clear to auscultation bilaterally Cardiovascular: Rate/Rhythm: regular rate and regular rhythm Heart Sounds: + murmur (2/6 ESM over precordium) Gastrointestinal (Abdomen): Inspection/Auscultation: abdomen normal to inspection and normal bowel sounds Percussion/Palpation: abdomen soft; abdom en nontender Musculoskeletal: No acute arthritis in any joints Neurologic: Alert, awake and oriented x3. No focal sensory and motor deficit appreciated Lymphatic: no cervical or axillary lymphadenopathy Results & Data Results & Data ([facility]) Vital Signs (Past 12 Hours) Vital Signs Temp Pulse Pulse Resp BP Pulse Ox 05/16/20 13:21 79 20 95 05/16/20 11:33 36.3 C L 71 20 150/81 H 96 05/16/20 09:59 19 95 05/16/20 07:22 36.8 C 77 20 142/78 H 94 05/16/20 07:00 69 05/16/20 03:41 36.7 C 64 20 110/78 98 05/16/20 03:30 71 16 96 Laboratory Results Short CBC 05/16/20 Range/Units 07:27 WBC 9.05 (4.8-10.8) K/uL Hgb 13.4 (12.0-16.0) g/dL Hct 41.7 (37-47) % Plt Count 241 (130-400) K/uL BMP 05/16/20 07:27 Sodium 140 Potassium 4.0 Chloride 103 Carbon Dioxide 33 H BUN 22 H Creatinine 1.31 H Glucose 130 H Calcium 9.0 Medications Administered Current Inpatient Medications Albuterol (Albut/Ipratrop 3mg/0.5mg Neb 3 Ml Vial) 3 ml NEB Q2H PRN PRN Reason: Wheezing Stop: 06/14/20 04:21 Last Admin: 05/16/20 13:21 Dose: 3 ml Documented by: Amitriptyline HCl (Amitriptyline Hcl 50 Mg Tab) 50 mg PO HS JORGE Stop: 06/14/20 20:59 Last Admin: 05/15/20 20:45 Dose: 50 mg Documented by: Amlodipine Besylate (Amlodipine Besylate 5 Mg Tab) 5 mg PO DAILY JORGE Stop: 06/14/20 08:59 Last Admin: 05/16/20 08:13 Dose: 5 mg Documented by: Atorvastatin Calcium (Atorvastatin 40 Mg Tab) 40 mg PO HS [facility] Stop: 06/14/20 20:59 Last Admin: 05/15/20 20:44 Dose: 40 mg Documented by: Benzonatate (Benzonatate 100 Mg Capsule) 100 mg PO TID JORGE Stop: 06/14/20 20:59 Last Admin: 05/16/20 13:15 Dose: 100 mg Documented by: Cetirizine HCl (Cetirizine Hcl 10 Mg Tablet) 10 mg PO HS [facility] Stop: 06/14/20 20:59 Last Admin: 05/15/20 20:45 Dose: 10 mg Documented by: Dextrose (Dextrose 50% 50 Ml Syringe) 25 - 50 ml IV UD PRN; Protocol PRN Reason: Hypoglycemia Protocol Stop: 06/14/20 04:21 Diltiazem HCl (Diltiazem Hcl 120 Mg Capcr) 120 mg PO QAM [facility] Stop: 06/14/20 08:59 Last Admin: 05/16/20 08:13 Dose: 120 mg Documented by: Docusate Sodium (Docusate Sodium 100 Mg Cap) 100 mg PO DAILY PRN PRN Reason: Constipation Stop: 06/14/20 04:35 Fentanyl (Fentanyl 50 Mcg/Hr Tdsy) 50 mcg TD Q3D@0900 [facility] Stop: 05/29/20 08:59 Last Admin: 05/15/20 09:13 Dose: 50 mcg Documented by: Furosemide (Furosemide 80 Mg Tab) 80 mg PO BID17 JORGE Stop: 06/14/20 08:59 Last Admin: 05/16/20 08:14 Dose: 80 mg Documented by: Gabapentin (Gabapentin 800 Mg Tab) 800 mg PO BID [facility] Stop: 06/14/20 08:59 Last Admin: 05/16/20 08:12 Dose: 800 mg Documented by: Glucagon (Glucagon For Inj 1 Mg Vial) 1 mg SQ UD PRN; Protocol PRN Reason: Hypoglycemia Protocol Stop: 06/14/20 04:21 Glucose (Glucose 10 Tabs/Tube) 4 - 8 tabs PO UD PRN; Protocol PRN Reason: Hypoglycemia Protocol Stop: 06/14/20 04:21 Glucose (Glucose 40% Gel 15 Gm Tube) 15 - 30 gm PO UD PRN; Protocol PRN Reason: Hypoglycemia Protocol Stop: 06/14/20 04:21 Hydromorphone HCl (Hydromorphone Inj 0.5 Mg/0.5 Ml Syr) 0.5 mg IV Q6H PRN PRN Reason: Pain Stop: 05/29/20 04:21 Promethazine HCl 12.5 mg/ (Sodium Chloride) 50.5 mls @ 202 mls/hr IV Q6H PRN PRN Reason: Nausea And Vomiting Stop: 06/14/20 04:21 Insulin Aspart (Insulin Aspart 100 Units/Ml 3 Ml Pen) 0 units SC ACHS [facility] Stop: 06/14/20 04:59 Last Admin: 05/16/20 12:19 Dose: Not Given Documented by: Insulin Glargine (Insulin Glargine Solostar 100 Units/Ml 3 Ml Pen) 8 units SC BID [facility] Stop: 06/14/20 08:59 Last Admin: 05/16/20 08:50 Dose: 8 units Documented by: Methocarbamol (Methocarbamol 750 Mg Tablet) 750 mg PO TID [facility] Stop: 06/14/20 08:59 Last Admin: 05/16/20 13:15 Dose: 750 mg Documented by: Metoprolol Tartrate (Metoprolol Tartrate 100 Mg Tab) 100 mg PO BID [facility] Stop: 06/14/20 08:59 Last Admin: 05/16/20 08:12 Dose: 100 mg Documented by: Miscellaneous (Fentanyl Patch Remove & Waste) 1 ea N/A Q3D@0859 [facility] Stop: 06/14/20 08:58 Last Admin: 05/16/20 08:11 Dose: 1 ea Documented by: Miscellaneous (Check Fentanyl Patch Placement) 1 ea N/A QS [facility] Stop: 06/14/20 04:44 Last Admin: 05/16/20 08:11 Dose: 1 ea Documented by: Miscellaneous (Carbohydrates For Hypoglycemia ) 15 - 30 gm PO UD PRN PRN Reason: Hypoglycemia Protocol Stop: 06/14/20 04:21 Multivitamins (Multivitamin Tab) 1 tab PO QAM [facility] Stop: 06/14/20 08:59 Last Admin: 05/16/20 08:13 Dose: 1 tab Documented by: Nitroglycerin (Nitroglycerin Sl 0.4 Mg/Tab Tab) 0.4 mg SL UD PRN PRN Reason: Chest Pain Stop: 06/14/20 04:21 Oxycodone HCl (Oxycodone Hcl Ir 5 Mg Tab (Immediate Release)) 10 mg PO Q6H PRN PRN Reason: Pain Stop: 05/29/20 04:21 Pantoprazole Sodium (Pantoprazole 40 Mg Tab) 40 mg PO QAM [facility] Stop: 06/14/20 08:59 Last Admin: 05/16/20 08:13 Dose: 40 mg Documented by: Potassium Chloride (Potassium Chloride 10 Meq Tabcr) 10 meq PO TIDM [facility] Stop: 06/14/20 08:59 Last Admin: 05/16/20 12:31 Dose: 10 meq Documented by: Trazodone HCl (Trazodone Hcl 100 Mg Tab) 200 mg PO HS JORGE Stop: 06/14/20 20:59 Last Admin: 05/15/20 20:44 Dose: 200 mg Documented by: Umeclidinium Jasper (Umeclidinium Jasper 62.5mcg/Blister 7 Puffs/Inhaler) 1 puffs INH QAM [facility] Stop: 06/14/20 08:59 Last Admin: 05/16/20 08:10 Dose: 1 puffs Documented by: Venlafaxine HCl (Venlafaxine Hcl Xr 150 Mg Capxr) 150 mg PO QAM [facility] Stop: 06/14/20 08:59 Last Admin: 05/16/20 08:12 Dose: 150 mg Documented by: Venlafaxine HCl (Venlafaxine Hcl Xr 75 Mg Capxr) 75 mg PO QAM [facility] Stop: 06/14/20 08:59 Last Admin: 05/16/20 08:15 Dose: 75 mg Documented by: Zolpidem Tartrate (Zolpidem Tartrate 5 Mg Tab) 5 mg PO HS PRN PRN Reason: insomnia Stop: 06/14/20 04:21 (1) Chest pain Chest pain type: unspecified Qualified Code(s): R07.9 - Chest pain, unspecified
--- NOTE | 2020-05-16 18:11 | Discharge Summary ---
Date of Service May 16, 2020 Admission HPI Per Admitting Provider History obtained from patient and records. Medical history is significant for chronic diastolic heart failure, EF of 65-70% (TTE 2019), atrial flutter status post ablation on Coumadin, cardiac fibroblastoma status p ost surgery, HTN chronic respiratory failure secondary to COPD on home O2, DARIUS on BIPAP, history of pulmonary hypertension, ongoing tobacco abuse, hx CVA as per records, chronic pain on narcotics, DM2 insulin requiring, CRI (baseline crea 1.4-1,5), gastroparesis per records, anxiety/mood disorder. Recent confinement last month for chest pain, mild CHF. Last night patient was already lying down on her bed when she experienced achy left-sided chest discomfort going to her right side without shortness of breath or diaphoresis. No unusual cough symptoms. No unusual weight gain. No prior e pisodes as per patient. EMS summoned to patient's home. Patient sustained right lower leg/ankle injury causing pain in transit to the ER. Chest pain relieved by Tylenol administration at the ER. MEDICAL HISTORY: As above. SURGERIES: She has had hysterectomy, appendectomy, cholecystectomy, lumpectomy, mitral valve repair, tubal ligation, umbilical hernia repair, carpal tunnel surgery, Ear surgery, section, FAMILY HISTORY: Heart disease. IBD, diabetes PERSONAL AND SOCIAL HISTORY: Eight cigarettes a day, disabled, no chronic intake of alcoholic beverages. Admission Exam Per Admitting Provider Physical Exam: GENERAL: Comfortable, obese, no respiratory distress SKIN: Normal color, warm HEENT: [place] palpebral conjunctivae, no ptosis, dry buccal mucosa, nasal cannula in place NECK : Supple, short neck, no tenderness CHEST : Expiratory wheezes, no tenderness HEART : Bradycardia, no obvious murmurs ABDOMEN: Some distention, nontender EXTREMITIES : LE venous stasis, RLE tenderness, no other conspicuous deformities noted NEUROLOGIC : Coherent, no facial asymmetry, no other gross focality Principal Diagnosis Chest pain-ACS ruled out, PAF Status post ablation, status post MVR,Chronic respiratory failure on home oxygen,DARIUS on home BiPAP Discharge Exam Constitutional well developed, well nourished and + morbidly obese; no acute distress and not ill appearing Eyes PERRL, conjunctivae normal, anicteric sclerae ENMT external ear and nose normal, oropharynx normal Neck trachea midline, no thyromegaly Respiratory normal respiratory effort and + respiratory distress Auscultation: lungs clear to auscultation bilaterally Cardiovascular Rate/Rhythm: regular rate and regular rhythm Heart Sounds: + murmur (2/6 ESM over precordium) Gastrointestinal (Abdomen) Inspection/Auscultation: abdomen normal to inspection and normal bowel sounds Percussion/Palpation: abdomen soft; abdomen nontender Lymphatic no cervical or axillary lymphadenopathy Discharge Data Allergies Allergy/AdvReac Type Severity Reaction Status Date / Time bee venom protein (honey bee) Allergy Severe SWELLING Verified 05/15/20 02:14 lisinopril Allergy Intermediate FACE Verified 05/15/20 02:14 SWELLING potato Allergy Intermediate BBQ chips Verified 05/15/20 02:14 - facial swelling metronidazole Allergy Mild FACE Verified 05/15/20 02:14 SWELLING strawberry Allergy Mild HIVES Verified 05/15/20 02:14 alprazolam Allergy Unknown RED FACE, Verified 05/15/20 02:14 FACE SWELLING lactose AdvReac Intermediate VOMTING Verified 05/15/20 02:14 DIARRHEA ABDOMINAL PAIN-LACTOSE INTOLERANCE prednisone AdvReac Mild AGGRESSIVE Verified 05/15/20 02:14 BEHAVIOR colesevelam AdvReac Unknown unknown Verified 05/15/20 02:14 lithium AdvReac Unknown jitters Verified 05/15/20 02:14 Consultations 05/15/20 02:38 ED Decision to Admit Stat 05/15/20 04:22 Consult Cardiology Routine Consult Case Management - Discharge Planning Routine Hospital Course (1) Chest pain: Presented with left-sided chest pain without any exertion and without any associated symptoms Given significant cardiac history she was admitted to telemetry unit to rule out possible ACS Has had negative cardiac markers and any significant EKG changes Remains free of any pain Appreciate cardiology input and recommendation No more cardiac symptoms Will be discharged home today with nitroglycerin tablet as needed for chest pain PAF/atrial flutter status post ablation on Coumadin px NSR INR therapeutic Chronic diastolic heart failure (EF 65-70%, TTE 2019), congestion on CXR Clinically euvolemic No signs and/or symptoms of CHF (2) S/P MVR (mitral valve repair): Cervical stenosis status post MVR (3) Chronic respiratory failure with hypoxia, on home oxygen therapy: Oxygen requirement is at her baseline (4) Severe obstructive sleep apnea: Continue CPAP (5) Chronic obstructive pulmonary disease: chronic respiratory failure secondary to COPD/pulmonary hypertension on home O2 DARIUS on BiPAP Pulmonary status at baseline (6) CVA (cerebral vascular accident): No new findings (7) Anxiety: History of depression No acute symptoms (8) HTN (hypertension): Remains stable (9) DM type 2 (diabetes mellitus, type 2): DM2 insulin requiring, suboptimal control as of recent outpatient hemoglobin A1c of 8.3, March 2020 Has been on SSI Other significant medical conditions remain stable DVT prophylaxis On Coumadin-INR therapeutic Will be discharged home this afternoon Total Time Total Time Spent Total Time Spent (In Minutes): 35 minutes Total Time Includes: Examination of the Patient, Discharge Planning, Medication Reconciliation and Communication With Other Providers Discharge Plan Discharge Items Patient Disposition: Home - Home Health Services Reason For Visit: CHEST PAIN Discharge Diagnosis: Chest pain-ACS ruled out, PAF Status post ablation, status post MVR,Chronic respiratory failure on home oxygen,DARIUS on home BiPAP Condition on Discharge: Fair Activity: Resume your previous activity Non-emergency contact: Primary Care Provider Call non-emergency contact if: you have any medication questions and your symptoms worsen Follow-up/Referrals: Manoj Gions DO [Primary Care Provider] - 05/19/20 3:00 pm (Date & Time 05/19/2020 3:00 PM Provider Manoj Goins DO Department General Internal Medicine [facility] ) Diet: Heart Healthy and Low Sodium (2gm) Fluids: 1500ml (6 cups) Addtl Attending Provider Instructions: Take precaution to avoid falls Pending Studies at Discharge: No Stand-Alone Forms: WebMD, Smoking Cessation Medications and DC Order Prescriptions: New nitroglycerin [Nitrostat] 0.4 mg Tablet, Sublingual 0.4 mg sublingual UD PRN (Reason: chest pain) 30 Days Qty: 30 RF: 0 Continued amitriptyline 50 mg Tablet 50 mg PO HS RF: 0 gabapentin 800 mg Tablet 800 mg PO BID RF: 0 diclofenac sodium 1 % Gel 2 g TOPICAL QID PRN (Reason: Pain) RF: 0 alendronate 70 mg tablet 70 mg PO WK RF: 0 warfarin 5 mg tablet 7.5 mg PO 2XWK RF: 0 diltiazem HCl 120 mg capsule,extended release 24hr 120 mg PO QAM RF: 0 potassium chloride 10 mEq tablet extended release 10 meq PO TID RF: 0 pantoprazole 40 mg tablet,delayed release (DR/EC) 40 mg PO QAM RF: 0 Lantus U-100 Insulin 100 unit/mL solution 16 unit SUBCUT BID RF: 0 metoprolol tartrate 50 mg Tablet 100 mg PO BID Qty: 120 RF: 2 amlodipine 5 mg tablet 5 mg PO DAILY RF: 0 multivitamin Tablet 1 tab PO QAM RF: 0 furosemide 40 mg Tablet 80 mg PO BID RF: 0 atorvastatin 40 mg Tablet 40 mg PO HS RF: 0 fentanyl 50 mcg/hr Patch 72 Hour 50 mcg TRANSDERMAL [id number] RF: 0 cetirizine 10 mg Tablet 10 mg PO HS RF: 0 venlafaxine 150 mg Capsule,Extended Release 24hr 150 mg PO QAM RF: 0 ondansetron 8 mg Tablet,Disintegrating 8 mg PO BID RF: 0 methocarbamol 750 mg Tablet 750 mg PO TID RF: 0 warfarin 5 mg Tablet 5 mg PO 5XWK RF: 0 epinephrine [EpiPen] 0.3 mg/0.3 mL Auto-Injector 0.3 mg IM DIRECTED PRN (Reason: Allergic Reaction) RF: 0 docusate sodium 100 mg Tablet 100 mg PO DAILY PRN (Reason: Constipation) RF: 0 Spiriva with HandiHaler 18 mcg Capsule, W/Inhalation Device 1 cap INHALATION QAM RF: 0 cholecalciferol (vitamin D3) [Vitamin D3] 1,000 unit Tablet 1,000 unit PO QAM RF: 0 venlafaxine 75 mg Capsule,Extended Release 24hr 75 mg PO QAM RF: 0 trazodone 100 mg Tablet 200 mg PO HS RF: 0 zolpidem 5 mg Tablet 5 mg PO HS RF: 0 oxycodone 5 mg Tablet 10 mg PO Q6H PRN (Reason: Pain) RF: 0 levalbuterol HCl 1.25 mg/3 mL solution for nebulization 1.25 mg INHALATION Q4H PRN (Reason: Wheezing) RF: 0 albuterol sulfate [Proventil HFA] 90 mcg/actuation HFA aerosol inhaler 2 puffs INH Q6H PRN (Reason: Shortness Of Breath Or Wheezing) RF: 0 Discharge Orders: Discharge Order (Routine); Ordered 05/16/20 Ordered By: Dee Sierra Admission Data Admit Date/Time: 05/15/20 03:10 Attending Provider: Dee Sierra Admit Provider: Jn Burns Primary Care Provider: Manoj Goins Other Providers: Mikey Jaquez ; [place] Underwood ; Mc House ; Sree Quinonez ; Apollo Figueroa ; Javan Maravilla ; Ninoska Zamora ; Kenia Guzman ; Campos Good ; Jn Burns Other Interventions: Discharge Summary Assessment (RN) Last Done: 05/16/20 16:30
== END 2020-05-16 16:58 | disposition home health service (06) ==
LOC: 2S 00:35 → ED 00:35 → 2S 03:52

== ENCOUNTER 2020-07-02 01:15 | Inpatient (IN) ==
--- NOTE | 2020-07-02 01:31 | Emergency Department Note ---
History of Present Illness General Chief Complaint: Chest Pain Stated Complaint: CHEST PAIN Time Seen by Provider: 07/02/20 01:18 History of Present Illness This 64-year-old on Coumadin for A. fib presents to the ER complaining of chest pain Location: Chest Quality: Pressure Severity: Moderate Duration: Tonight Timing: Started around midnight Context: Patient was concerned and came in Modifying factors: better with Cardizem; worse with nothing Patient tried nitro with no relief. Patient denies dyspnea, abdominal pain, fever, chills, flulike illness. Patient states she cannot tell when she is in A. fib. Unsure of Coumadin level. Home Medications Home Medications Medication Instructions Recorded Confirmed Type Spiriva with HandiHaler 1 cap INHALATION QAM 06/19/18 07/02/20 History atorvastatin 40 mg PO HS 06/19/18 07/02/20 History cetirizine 10 mg PO HS 06/19/18 07/02/20 History cholecalciferol (vitamin D3) 1,000 unit PO QAM 06/19/18 07/02/20 History [Vitamin D3] docusate sodium 100 mg PO DAILY PRN 06/19/18 07/02/20 History epinephrine [EpiPen] 0.3 mg IM DIRECTED PRN 06/19/18 07/02/20 History fentanyl 50 mcg TRANSDERMAL [id number] 06/19/18 07/02/20 History furosemide 80 mg PO BID 06/19/18 07/02/20 History methocarbamol 750 mg PO TID 06/19/18 07/02/20 History multivitamin 1 tab PO QAM 06/19/18 07/02/20 History ondansetron 8 mg PO BID 06/19/18 07/02/20 History venlafaxine 150 mg PO QAM 06/19/18 07/02/20 History warfarin 5 mg PO 5XWK 06/19/18 07/02/20 History trazodone 200 mg PO HS 09/14/18 07/02/20 History venlafaxine 75 mg PO QAM 09/14/18 07/02/20 History zolpidem 5 mg PO HS 09/14/18 07/02/20 History amitriptyline 50 mg PO HS 05/28/19 07/02/20 History diclofenac sodium 2 g TOPICAL QID PRN 05/28/19 07/02/20 History gabapentin 800 mg PO BID 05/28/19 07/02/20 History alendronate 70 mg tablet 70 mg PO WK tab 06/10/19 07/02/20 History warfarin 7.5 mg PO 2XWK 09/19/19 07/02/20 History Lantus U-100 Insulin 16 unit SUBCUT BID 03/02/20 07/02/20 History diltiazem HCl 120 mg PO QAM 03/02/20 07/02/20 History metoprolol tartrate 100 mg PO BID #120 tab 03/02/20 07/02/20 Rx pantoprazole 40 mg PO QAM 03/02/20 07/02/20 History potassium chloride 10 meq PO TID 03/02/20 07/02/20 History albuterol sulfate [Proventil HFA] 2 puffs INH Q6H PRN 03/24/20 07/02/20 History levalbuterol HCl 1.25 mg INHALATION Q4H PRN 03/24/20 07/02/20 History amlodipine 5 mg PO DAILY 05/15/20 07/02/20 History nitroglycerin [Nitrostat] 0.4 mg SUBLINGUAL UD PRN 07/02/20 07/02/20 History oxycodone 10 mg PO Q6 PRN 07/02/20 07/02/20 History Allergies Allergy/AdvReac Type Severity Reaction Status Date / Time bee venom protein (honey bee) Allergy Severe SWELLING Verified 07/02/20 01:55 lisinopril Allergy Intermediate FACE Verified 07/02/20 01:55 SWELLING potato Allergy Intermediate BBQ chips Verified 07/02/20 01:55 - facial swelling metronidazole Allergy Mild FACE Verified 07/02/20 01:55 SWELLING strawberry Allergy Mild HIVES Verified 07/02/20 01:55 alprazolam Allergy Unknown RED FACE, Verified 07/02/20 01:55 FACE SWELLING lactose AdvReac Intermediate VOMTING Verified 07/02/20 01:55 DIARRHEA ABDOMINAL PAIN-LACTOSE INTOLERANCE prednisone AdvReac Mild AGGRESSIVE Verified 07/02/20 01:55 BEHAVIOR colesevelam AdvReac Unknown unknown Verified 07/02/20 01:55 lithium AdvReac Unknown jitters Verified 07/02/20 01:55 Past Med/Surg History Medical History Acute renal failure Anemia remote hx blood transfusion (5+ years ago)= no definitive etiology Anxiety Asthma 3LPM via n/c mostly continuous (although patient states she does not wear this all the time) Atrial fibrillation a. fib/a. flutter s/p cardioversion (2016) Atrial fibrillation with RVR Lynn esophagus Bipolar disorder Chronic back pain Chronic cor pulmonale Chronic kidney disease stage III Chronic obstructive pulmonary disease 3LPM via n/c mostly continuous (although patient states she does not wear this all the time) Chronic respiratory failure CVA (cerebral vascular accident) 2004 (per records; patient denies) Degeneration of cervical intervertebral disc Depression Diastolic CHF, chronic DM type 2 (diabetes mellitus, type 2) Elevated troponin Fibromyalgia Gastroparesis GERD (gastroesophageal reflux disease) History of Clostridium difficile infection History of DVT (deep vein thrombosis) left "hand" 2004- on AC HTN (hypertension) Hyperlipidemia Hyponatremia Hypothyroidism 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 Nocturnal hypoxemia Obesity Obstructive sleep apnea treated with BiPAP Osteoarthritis Post traumatic stress disorder Surgical History H/O: hysterectomy History of adenoidectomy History of appendectomy LAPAROSCOPY History of cardiac cath 2004= no stents History of cataract surgery BILATERAL History of cholecystectomy LAPAROSCOPY History of colonoscopy History of esophagogastroduodenoscopy (EGD) History of herniorrhaphy UMBILICAL History of hysterectomy EMIGDIO WITH BSO History of mitral valve repair 2004 + resection fibroelastoma History of tonsillectomy Hx of appendectomy Hx of lumpectomy right breast BENIGN Hx of tubal ligation Hx of umbilical hernia repair S/P trigger finger release RIGHT/LEFT Family History Mother Family history of diabetes mellitus Sister Family history of diabetes mellitus Social History Smoking Status: Current every day smoker Tobacco Type: Cigarettes Cigarettes Per Day: 10; Second Hand Exposure: No; Hx Alcohol Use: No Hx Substance Use: No Preferred Language: Slovak Communication Ability: Effective Visual Impairment: No Limitations Mustanger Required: No Beliefs That Will Affect Care: None marital status: / Current Living Situation: Alone Current Living Situation Comment: With caregivers Feels Safe at Home: Yes Assistive Devices: Oxygen - Continuous Review of Systems A total of 10 systems reviewed and were otherwise negative Physical Exam Vital Signs Vital Signs - 24 hr 07/02/20 01:20 07/02/20 01:31 07/02/20 01:55 Temperature 37 C Temperature Source Oral Pulse Rate 110 H Pulse Rate [Apical] 111 H 90 Respiratory Rate 16 18 18 Blood Pressure 125/71 Blood Pressure [Right Arm] 136/66 104/59 L Blood Pressure Mean 89 Blood Pressure Mean [Right Arm] 89 74 Blood Pressure Position [Right Arm] Pulse Oximetry 97 97 97 Oxygen Delivery Method Nasal Cannula Nasal Cannula Nasal Cannula Oxygen Flow Rate 3 3 3 Sepsis Recent Fever Within 48 Hours No Sepsis New/Unexplained Change in Mental Status N/A Sepsis Action Taken by Nursing No Action Required 07/02/20 02:30 Temperature Temperature Source Pulse Rate Pulse Rate [Apical] 103 H Respiratory Rate 18 Blood Pressure Blood Pressure [Right Arm] 110/68 Blood Pressure Mean Blood Pressure Mean [Right Arm] 82 Blood Pressure Position [Right Arm] Semi-fowlers Pulse Oximetry 98 Oxygen Delivery Method Nasal Cannula Oxygen Flow Rate 3 Sepsis Recent Fever Within 48 Hours Sepsis New/Unexplained Change in Mental Status Sepsis Action Taken by Nursing VITALS: Vitals are noted on the nurse's note and reviewed by myself. Vital signs stable. GENERAL: Pleasant female, in no acute distress, nondiaphoretic, well-developed well-nourished. SKIN: Capillary reflex less than 2 seconds. HEENT: Normocephalic. PERRLA. EOMI. Nares patent. Mucous membranes moist. N kaylee is supple without nuchal rigidity. HEART: Irregularly irregular LUNGS: Clear to auscultation bilaterally without wheezes, rales or rhonchi. No retractions or accessory muscle use. ABDOMEN: Positive bowel sounds x 4. Normal tympanic percussion. Soft, nontender, without masses or organomegaly. Simpson sign negative. No guarding or rebound tenderness. MUSCULOSKELETAL: No gross musculoskeletal defects. NEURO: Patient was alert and oriented to person place and time. No focal neurological deficits. Course Administered Medications Discontinued Medications Diltiazem HCl (Diltiazem Hcl 5 Mg/Ml 5 Ml Vial) 10 mg IV NOW STA Stop: 07/02/20 01:41 Last Admin: 07/02/20 01:48 Dose: 10 mg Documented by: [id number] Cosigned by: [id number] Medical Decision Making Medical Records Attestation: I reviewed the patient's medical records. Home Medications Current Medication List: was personally reviewed by me Laboratory Data Attestation: I reviewed the patient's lab results. Result diagrams: 07/02/20 01:26 07/02/20 01:26 Labs: Lab Results 07/02/20 07/02/20 07/02/20 Range/Units 01:26 01:26 01:26 WBC 8.75 (4.8-10.8) K/uL RBC 4.50 (4.2-5.4) M/uL Hgb 13.7 (12.0-16.0) g/dL Hct 41.6 (37-47) % MCV 92.4 (80-100) fL MCH 30.4 (25-34) pg MCHC 32.9 (32-36) g/dL RDW Std Deviation 47.8 H (36.4-46.3) fL RDW Coeff of King 14.2 (11.5-14.5) % Plt Count 289 (130-400) K/uL MPV 9.6 (7.4-10.4) fL Immature Gran % (Auto) 0.2 % Neut % (Auto) 73.8 % Lymph % (Auto) 15.1 % [place]orne % (Auto) 8.7 % Eos % (Auto) 1.9 % Baso % (Auto) 0.3 % Neut # (Auto) 6.45 (1.4-6.5) K/uL Lymph # (Auto) 1.32 (1.2-3.4) K/uL [place]orne # (Auto) 0.76 H (0.11-0.59) K/uL Eos # (Auto) 0.17 (0-0.5) K/uL Baso # (Auto) 0.03 (0-0.2) K/uL Immature Gran # (Auto) 0.02 (0.00-0.02) K/uL PT 24.8 H (9.0-12.0) Seconds INR 2.5 H (0.9-1.1) APTT 40.6 H (21.0-31.0) Seconds PTT Ratio 1.5 Sodium 135 L (136-145) mmol/L Potassium 4.3 (3.5-5.1) mmol/L Chloride 98 (98-107) mmol/L Carbon Dioxide 30 (21-32) mmol/L Anion Gap 7.0 (3-11) BUN 22 H (7-18) mg/dl Creatinine 1.56 H (0.6-1.2) mg/dl Est Cr Clr Drug Dosing 43.0 ml/min Est GFR ( Amer) 40.6 Est GFR (Non-Af Amer) 35.0 BUN/Creatinine Ratio 14.4 (10-20) Glucose 249 H (70-99) mg/dl Calcium 8.8 (8.5-10.1) mg/dl Magnesium 1.9 (1.8-2.4) mg/dl Total Bilirubin 0.3 (0.2-1) mg/dl AST 28 (15-37) U/L ALT 27 (12-78) U/L Alkaline Phosphatase 89 (45-117) U/L Troponin I < 0.015 (0-0.045) ng/ml Total Protein 7.3 (6.4-8.2) gm/dl Albumin 2.9 L (3.4-5.0) gm/dl Globulin 4.4 H (2.5-4.0) gm/dl Albumin/Globulin Ratio 0.7 L (0.9-2) Lipase 121 (73-393) U/L TSH 1.730 (0.300-4.500) uIu/ml MDM Narrative Prior records/ancillary studies reviewed. Triage Nursing notes reviewed. Additional history obtained from EMS. The patient's history was concerning for chest pain. Differential diagnosis: Etiologies such as cardiac ischemia, aortic dissection, pulmonary embolism, pneumonia, pneumothorax, musculoskeletal, infections, pericarditis, myocarditis, esophageal rupture, gastrointestinal, as well as others were entertained. Physical examination: As above. ER treatment provided: An order was placed for continuous cardiac monitoring. The monitor shows a rate of 60-1 30 with a A. fib rhythm. EMS gave Cardizem On reassessment the patient felt better. Diagnostic interpretation by me: The electrocardiogram was irregularly irregular with a right bundle branch bloc k, no acute ST-T wave changes, rate of 112. Impression A. fib with a right bundle branch block with RVR interpreted by myself The labs revealed therapeutic INR. Negative troponin Imaging studies: Chest x-ray pulmonary congestion slightly worse than prior per my interpretation HEART SCORE: Hx: high/mod/low suspicion: 1 ECG: ST depression/nonspecific changes/normal: 0 Age: Greater than 65/45-64/less than 45: 1 Risk factors: (Hypertension, hyperlipidemia, diabetes, coronary disease, tobacco use, cocaine use): 2 Troponin: Greater than 2 times normal limits/1-2 times normal limits/normal: 0 Total: 4 Consultation: A consultation was placed with the hospitalist, Dr Nguyen. The case was discussed and diagnostics were reviewed. The patient was evaluated in the ER for further treatment. Exam and history seem consistent with chest pain with A. fib with RVR. Patient was given Cardizem by EMS and in the ER. Heart rate did improve. Patient was having chest pain that is now resolved. She will be evaluated for possible admission. Patient is agreeable to treatment plan of admission. By the evaluation outlined above emergent etiologies such as aortic dissection, pulmonary embolism, pneumonia, pneumothorax, infections, pericarditis, myocarditis, gastrointestinal, as well as others were deemed relatively unlikely. The pt informed about the findings as listed above. All questions were answered and pleased with the treatment. The chart was completed utilizing [employer] Speech voice recognition software. Grammatical errors, random word insertions, pronoun errors, and incomplete sentences are an occassional consequence of this system due to software limitations, ambient noise, and hardware issues. Any formal questions or concerns about the content, text, or information contained within the body of this dictation should be directly addressed to the physician speech language pathology assistant for clarification. Impression & Plan Atrial fibrillation with rapid ventricular response, Chest pain Discharge Plan Visit Data Chief Complaint: Chest Pain Stated Complaint: CHEST PAIN ED Provider: Richar Briones ED Midlevel Provider: Noni Pace Discharge Problem: Atrial fibrillation with rapid ventricular response, Chest pain Patient Disposition: Being Evaluated by Hospitalist Condition: Fair Forms Stand Alone Forms: My [facility] Prescriptions Prescriptions: No Action amitriptyline 50 mg Tablet 50 mg PO HS RF: 0 gabapentin 800 mg Tablet 800 mg PO BID RF: 0 diclofenac sodium 1 % Gel 2 g TOPICAL QID PRN (Reason: Pain) RF: 0 alendronate 70 mg tablet 70 mg PO WK RF: 0 warfarin 5 mg tablet 7.5 mg PO 2XWK RF: 0 diltiazem HCl 120 mg capsule,extended release 24hr 120 mg PO QAM RF: 0 potassium chloride 10 mEq tablet extended release 10 meq PO TID RF: 0 pantoprazole 40 mg tablet,delayed release (DR/EC) 40 mg PO QAM RF: 0 Lantus U-100 Insulin 100 unit/mL solution 16 unit SUBCUT BID RF: 0 metoprolol tartrate 50 mg Tablet 100 mg PO BID Qty: 120 RF: 2 amlodipine 5 mg tablet 5 mg PO DAILY RF: 0 oxycodone 10 mg tablet 10 mg PO Q6 PRN (Reason: Pain) RF: 0 nitroglycerin [Nitrostat] 0.4 mg tablet, sublingual 0.4 mg sublingual UD PRN (Reason: Chest Pain) RF: 0 multivitamin Tablet 1 tab PO QAM RF: 0 furosemide 40 mg Tablet 80 mg PO BID RF: 0 atorvastatin 40 mg Tablet 40 mg PO HS RF: 0 fentanyl 50 mcg/hr Patch 72 Hour 50 mcg TRANSDERMAL [id number] RF: 0 cetirizine 10 mg Tablet 10 mg PO HS RF: 0 venlafaxine 150 mg Capsule,Extended Release 24hr 150 mg PO QAM RF: 0 ondansetron 8 mg Tablet,Disintegrating 8 mg PO BID RF: 0 methocarbamol 750 mg Tablet 750 mg PO TID RF: 0 warfarin 5 mg Tablet 5 mg PO 5XWK RF: 0 epinephrine [EpiPen] 0.3 mg/0.3 mL Auto-Injector 0.3 mg IM DIRECTED PRN (Reason: Allergic Reaction) RF: 0 docusate sodium 100 mg Tablet 100 mg PO DAILY PRN (Reason: Constipation) RF: 0 Spiriva with HandiHaler 18 mcg Capsule, W/Inhalation Device 1 cap INHALATION QAM RF: 0 cholecalciferol (vitamin D3) [Vitamin D3] 1,000 unit Tablet 1,000 unit PO QAM RF: 0 venlafaxine 75 mg Capsule,Extended Release 24hr 75 mg PO QAM RF: 0 trazodone 100 mg Tablet 200 mg PO HS RF: 0 zolpidem 5 mg Tablet 5 mg PO HS RF: 0 levalbuterol HCl 1.25 mg/3 mL solution for nebulization 1.25 mg INHALATION Q4H PRN (Reason: Wheezing) RF: 0 albuterol sulfate [Proventil HFA] 90 mcg/actuation HFA aerosol inhaler 2 puffs INH Q6H PRN (Reason: Shortness Of Breath Or Wheezing) RF: 0 Referrals Referrals: aMnoj Goins, [Primary Care Provider] -
[2020-07-02 01:35] LABS: Basophils # (auto) 0.03 K/uL (0-0.2); Basophils % (auto) 0.3 %; Eosinophils # (auto) 0.17 K/uL (0-0.5); Eosinophils % (auto) 1.9 %; Hematocrit (blood only) 41.6 % (37-47); Hemoglobin 13.7 g/dL (12.0-16.0); Immature Granulocytes # (auto) 0.02 K/uL (0.00-0.02); Immature Granulocytes % (auto) 0.2 %; Lymphocytes # (auto) 1.32 K/uL (1.2-3.4); Lymphocytes % (auto) 15.1 %; Mean Corpuscular Hemoglobin 30.4 pg (25-34); Mean Corpuscular Hgb Conc 32.9 g/dL (32-36); Mean Corpuscular Volume 92.4 fL (80-100); Mean Platelet Volume 9.6 fL (7.4-10.4); Monocytes # (auto) 0.76 K/uL (0.11-0.59); Monocytes % (auto) 8.7 %; Neutrophils # (auto) 6.45 K/uL (1.4-6.5); Neutrophils % (auto) 73.8 %; Platelet Count 289 K/uL (130-400); RDW Coefficient of Variation 14.2 % (11.5-14.5); RDW Standard Deviation 47.8 fL (36.4-46.3); White Blood Count 8.75 K/uL (4.8-10.8)
[2020-07-02] MEDS ORDERED: dilTIAZem HCl 5 MG/ML 5 ML VIAL IV STA (01:40)
[2020-07-02 01:45] LABS: INR 2.5 (0.9-1.1); Partial Thromboplastin Ratio 1.5; Partial Thromboplastin Time 40.6 Seconds (21.0-31.0); Prothrombin Time 24.8 Seconds (9.0-12.0)
--- NOTE | 2020-07-02 01:52 | Emergency Department Note ---
ED Visit Note Physician Evaluation Note: I have personally evaluated and examined this patient. I agree with assessment and plan of Jessica Pace PA-C. 64 yr old pleasant female with extensive medical history arrives in Afib RVR with history of similar. 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 Given chest pain with symptoms and findings will bring in for further management to hospitalist service. Richar Briones MD
[2020-07-02 02:27] LABS: Alanine Aminotransferase 27 U/L (12-78); Albumin Globulin Ratio 0.7 (0.9-2); Albumin Level 2.9 gm/dl (3.4-5.0); Alkaline Phosphatase 89 U/L (45-117); BUN Creatinine Ratio 14.4 (10-20); Bilirubin,Total 0.3 mg/dl (0.2-1); Blood Urea Nitrogen 22 mg/dl (7-18); Calcium 8.8 mg/dl (8.5-10.1); Carbon Dioxide 30 mmol/L (21-32); Chloride 98 mmol/L (98-107); Est GFR (African American) 40.6; Globulin 4.4 gm/dl (2.5-4.0); Glucose 249 mg/dl (70-99); Lipase 121 U/L (73-393); Sodium 135 mmol/L (136-145); Total Protein 7.3 gm/dl (6.4-8.2); Troponin I < 0.015 ng/ml (0-0.045)
[2020-07-02 02:43] LABS: Aspartate Aminotransferase 28 U/L (15-37); Magnesium 1.9 mg/dl (1.8-2.4); Potassium 4.3 mmol/L (3.5-5.1)
[2020-07-02] MEDS ORDERED: ACETAMINOPHEN 325 MG TAB PO PRN (04:03)
[2020-07-02] MEDS ORDERED: LEVALBUTEROL HCL 1.25 MG/3 ML NEB INH PRN (04:03)
[2020-07-02] MEDS ORDERED: METOPROLOL TARTRATE 1 MG/ML VIAL IV PRN (04:03)
[2020-07-02] MEDS ORDERED: DICLOFENAC SOD 1% GEL 100 GM TUBE EXT PRN (04:03)
[2020-07-02] MEDS ORDERED: ALBUTEROL HFA 8 GM INHALER INH PRN (04:03)
[2020-07-02] MEDS ORDERED: NITROGLYCERIN SL 0.4 MG/TAB TAB SL PRN ×2 (04:03)
[2020-07-02] MEDS ORDERED: DOCUSATE SODIUM 100 MG CAP PO PRN (04:16)
[2020-07-02] MEDS ORDERED: DEXTROSE 50% 50 ML SYRINGE IV PRN (04:30)
[2020-07-02] MEDS ORDERED: CARBOHYDRATES FOR HYPOGLYCEMIA PO PRN (04:30)
[2020-07-02] MEDS ORDERED: GLUCAGON FOR INJ 1 MG VIAL SQ PRN (04:30)
[2020-07-02] MEDS ORDERED: GLUCOSE 10 TABS/TUBE PO PRN (04:30)
[2020-07-02] MEDS ORDERED: GLUCOSE 40% GEL 15 GM TUBE PO PRN (04:30)
[2020-07-02] MEDS ORDERED: Nursing to Pharmacy Communication SCH ×2 (04:45→15:00)
[2020-07-02] MEDS: NICOTINE 14 MG/24 HR PATCH TD SCH (05:48)
[2020-07-02] MEDS: INSULIN ASPART 100 UNITS/ML 3 ML PEN SC SCH ×4 (05:49→21:05)
[2020-07-02 07:12] LABS: Basophils # (auto) 0.03 K/uL (0-0.2); Basophils % (auto) 0.4 %; Eosinophils # (auto) 0.19 K/uL (0-0.5); Eosinophils % (auto) 2.4 %; Hematocrit (blood only) 41.2 % (37-47); Hemoglobin 13.3 g/dL (12.0-16.0); Immature Granulocytes # (auto) 0.02 K/uL (0.00-0.02); Immature Granulocytes % (auto) 0.3 %; Lymphocytes # (auto) 1.67 K/uL (1.2-3.4); Lymphocytes % (auto) 21.3 %; Mean Corpuscular Hemoglobin 29.8 pg (25-34); Mean Corpuscular Hgb Conc 32.3 g/dL (32-36); Mean Corpuscular Volume 92.4 fL (80-100); Mean Platelet Volume 9.7 fL (7.4-10.4); Monocytes % (auto) 10.2 %; Neutrophils # (auto) 5.14 K/uL (1.4-6.5); Neutrophils % (auto) 65.4 %; Platelet Count 297 K/uL (130-400); RDW Coefficient of Variation 14.4 % (11.5-14.5); RDW Standard Deviation 48.7 fL (36.4-46.3); Red Blood Count 4.46 M/uL (4.2-5.4); White Blood Count 7.85 K/uL (4.8-10.8)
[2020-07-02 07:22] LABS: INR 2.6 (0.9-1.1); Prothrombin Time 25.6 Seconds (9.0-12.0)
[2020-07-02] MEDS ORDERED: INSULIN ASPART 100 UNITS/ML 3 ML PEN SC SCH (07:30)
[2020-07-02 07:56] LABS: BUN Creatinine Ratio 17.9 (10-20); Calcium 9.4 mg/dl (8.5-10.1); Creatinine Clr Calc Pharmacy 48.8 ml/min; Est GFR (African American) 48.3; Est GFR (Non-African American) 41.7
[2020-07-02 07:58] LABS: Troponin I 0.018 ng/ml (0-0.045)
--- NOTE | 2020-07-02 08:08 | XRay Report ---
XR chest 1V portable CLINICAL HISTORY: Atypical chest pain COMPARISON STUDY: 05/15/2020 FINDINGS: The heart remains enlarged. There is a valvular prosthesis. There is a stable right lateral lung herniation. There is diffuse elevation of interstitium consistent with interstitial pulmonary e ana. This is slightly progressive. An interstitial inflammatory process could appear similar.[ IMPRESSION: 1. Persistent diffuse elevation of interstitium. This could represent interstitial pulmonary edema, o r interstitial infectious/inflammatory process. 2. Stable right lateral lung herniation. ACT 112: Negative or not required by law. Electronically signed by: Cesar Lopez M.D. 07/02/2020 8:06 AM
[2020-07-02 08:44] LABS: Potassium 3.7 mmol/L (3.5-5.1)
[2020-07-02 08:46] LABS: Magnesium 2.2 mg/dl (1.8-2.4)
--- NOTE | 2020-07-02 08:51 | Cardiology Consultation ---
Date of Consultation July 02, 2020 Assessment & Plan (1) Atrial fibrillation with rapid ventricular response: (2) Chest pain: (3) Acute on chronic diastolic (congestive) heart failure: (4) Acute exacerbation of chronic obstructive pulmonary disease: (5) Severe obstructive sleep apnea: (6) Pulmonary HTN: And intravenous Cardizem infusion at 5 mg/h. Continue metoprolol 100 mg twice daily in addition to Cardizem CD 120 mg daily. Dose warfarin daily for goal INR 2.0-3.0. INR therapeutic since 06/01/2020. Consider elective external direct-current cardioversion during hospitalization if patient remains in atrial fibrillation despite optimization of respiratory and volume status. Transition oral Lasix to IV formulation, 60 mg twice daily. Follow daily weight, fluid balance, GFR, and electrolytes. Consider addition of corticosteroids and antibiotics given presence of active wheeze/COPD exacerbation. History of Present Illness Reason for Consultation: Atrial fibrillation with rapid ventricular response Requesting Physician: Dr. Felipe Sierra Attending Physician: Dee Sierra MD History of Present Illness 64-year-old female presented to the emergency department with chest pain. Atrial fibrillation with rapid ventricular response noted on presentation. Patient treated with intravenous Cardizem with subsequent improvement of rate control. Complex history noted below. Recently hospitalized November 2019 with acute on chronic respiratory failure secondary to diastolic heart failure. Readmitted February 2020 with symptomatic rapid atrial fibrillation after missing beta-mana for several days. Again hospitalized March 2020 with atypical chest discomfort and productive cough secondary to heart failure. History of severe emphysema and active tobacco abuse. Most recently evaluated in clinic 05/01/2020. Fluid restriction recommended during that visit. Patient declined Lexiscan nuclear stress testing. Patient seen examined at the bedside. Chest discomfort has resolved. Heart rate remains elevated. Expiratory wheezing and cough reported. Patient denies sputum production. No fever, chills, or sick contacts. Denies orthopnea or paroxysmal nocturnal dyspnea. Chronically sleeps with head of bed elevated. Reports using nebulizer treatments 3 times per day over the past 2 to 3 weeks. Currently denies any palpitations. Resting comfortably. Past Medical and Surgical History 1. 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 2. June 13, 2005 cardiac catheterization at [facility] revealing left dominant coronary system with small caliber distal vessels consistent with diabetic history, without obstructive disease. 3. Symptomatic atrial flutter observed initially in February 2013, status post 03/16/2013 and 10/20/2018 cardioversions. 4. May 02, [address] Masterson, successful ablation of the tricuspid valve to inferior vena caval isthmus with bidirectional block and termination of atrial flutter. Post ablation electrophysiologic study showed dual pathways with echo beats, no inducible SVT however extensive induction was not attempted 5. Coumadin prescribed secondary to the paroxysmal atrial flutter, CHADS2 Score of 5 out of 6 (CHF, HTN, DM, CVA), Lambl's Excrescences, history of DVT, and the mitral valve disease. 6. She has not been felt to be a great candidate for antiarrhythmic therapy due to QT prolongation from her psych medications. 7. Severe chronic obstructive lung disease, advanced emphysema, chronic hypoxemia with supplemental oxygen therapy PRN during the day and QHS. Ongoing tobacco abuse 8. Severe pulmonary hypertension 9. Chronic right heart failure, cor pulmonale physiology 10. Obstructive sleep apnea, on CPAP therapy. 11. Anemia 12. Hypertension 13. Hyperlipidemia 14. Type II diabetes mellitus with gastroparesis 15. Stage III chronic kidney disease Allergies Allergy/AdvReac Type Severity Reaction Status Date / Time bee venom protein (honey bee) Allergy Severe SWELLING Verified 07/02/20 01:55 lisinopril Allergy Intermediate FACE Verified 07/02/20 01:55 SWELLING potato Allergy Intermediate BBQ chips Verified 07/02/20 01:55 - facial swelling metronidazole Allergy Mild FACE Verified 07/02/20 01:55 SWELLING strawberry Allergy Mild HIVES Verified 07/02/20 01:55 alprazolam Allergy Unknown RED FACE, Verified 07/02/20 01:55 FACE SWELLING lactose AdvReac Intermediate VOMTING Verified 07/02/20 01:55 DIARRHEA ABDOMINAL PAIN-LACTOSE INTOLERANCE prednisone AdvReac Mild AGGRESSIVE Verified 07/02/20 01:55 BEHAVIOR colesevelam AdvReac Unknown unknown Verified 07/02/20 01:55 lithium AdvReac Unknown jitters Verified 07/02/20 01:55 Home Medications Home Medications Medication Instructions Recorded Confirmed Type Spiriva with HandiHaler 1 cap INHALATION QAM 06/19/18 07/02/20 History atorvastatin 40 mg PO HS 06/19/18 07/02/20 History cetirizine 10 mg PO HS 06/19/18 07/02/20 History cholecalciferol (vitamin D3) 1,000 unit PO QAM 06/19/18 07/02/20 History [Vitamin D3] docusate sodium 100 mg PO DAILY PRN 06/19/18 07/02/20 History epinephrine [EpiPen] 0.3 mg IM DIRECTED PRN 06/19/18 07/02/20 History fentanyl 50 mcg TRANSDERMAL [id number] 06/19/18 07/02/20 History furosemide 80 mg PO BID 06/19/18 07/02/20 History methocarbamol 750 mg PO TID 06/19/18 07/02/20 History multivitamin 1 tab PO QAM 06/19/18 07/02/20 History ondansetron 8 mg PO BID 06/19/18 07/02/20 History venlafaxine 150 mg PO QAM 06/19/18 07/02/20 History warfarin 5 mg PO 5XWK 06/19/18 07/02/20 History trazodone 200 mg PO HS 09/14/18 07/02/20 History venlafaxine 75 mg PO QAM 09/14/18 07/02/20 History zolpidem 5 mg PO HS 09/14/18 07/02/20 History amitriptyline 50 mg PO HS 05/28/19 07/02/20 History diclofenac sodium 2 g TOPICAL QID PRN 05/28/19 07/02/20 History gabapentin 800 mg PO BID 05/28/19 07/02/20 History alendronate 70 mg tablet 70 mg PO WK tab 06/10/19 07/02/20 History warfarin 7.5 mg PO 2XWK 09/19/19 07/02/20 History Lantus U-100 Insulin 16 unit SUBCUT BID 03/02/20 07/02/20 History diltiazem HCl 120 mg PO QAM 03/02/20 07/02/20 History metoprolol tartrate 100 mg PO BID #120 tab 03/02/20 07/02/20 Rx pantoprazole 40 mg PO QAM 03/02/20 07/02/20 History potassium chloride 10 meq PO TID 03/02/20 07/02/20 History albuterol sulfate [Proventil HFA] 2 puffs INH Q6H PRN 03/24/20 07/02/20 History levalbuterol HCl 1.25 mg INHALATION Q4H PRN 03/24/20 07/02/20 History amlodipine 5 mg PO DAILY 05/15/20 07/02/20 History Advair Diskus 1 puff INHALATION BID 07/02/20 07/02/20 History nitroglycerin [Nitrostat] 0.4 mg SUBLINGUAL UD PRN 07/02/20 07/02/20 History oxycodone 10 mg PO Q6 PRN 07/02/20 07/02/20 History Patient History Medical History Acute renal failure Anemia remote hx blood transfusion (5+ years ago)= no definitive etiology Anxiety Asthma 3LPM via n/c mostly continuous (although patient states she does not wear this all the time) Atrial fibrillation a. fib/a. flutter s/p cardioversion (2016) Atrial fibrillation with RVR Lynn esophagus Bipolar disorder Chronic back pain Chronic cor pulmonale Chronic kidney disease stage III Chronic obstructive pulmonary disease 3LPM via n/c mostly continuous (although patient states she does not wear this all the time) Chronic respiratory failure CVA (cerebral vascular accident) 2004 (per records; patient denies) Degeneration of cervical intervertebral disc Depression Diastolic CHF, chronic DM type 2 (diabetes mellitus, type 2) Elevated troponin Fibromyalgia Gastroparesis GERD (gastroesophageal reflux disease) History of Clostridium difficile infection History of DVT (deep vein thrombosis) left "hand" 2004- on AC HTN (hypertension) Hyperlipidemia Hyponatremia Hypothyroidism 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 Nocturnal hypoxemia Obesity Obstructive sleep apnea treated with BiPAP Osteoarthritis Post traumatic stress disorder Surgical History H/O: hysterectomy History of adenoidectomy History of appendectomy LAPAROSCOPY History of cardiac cath 2004= no stents History of cataract surgery BILATERAL History of cholecystectomy LAPAROSCOPY History of colonoscopy History of esophagogastroduodenoscopy (EGD) History of herniorrhaphy UMBILICAL History of hysterectomy EMIGDIO WITH BSO History of mitral valve repair 2004 + resection fibroelastoma History of tonsillectomy Hx of appendectomy Hx of lumpectomy right breast BENIGN Hx of tubal ligation Hx of umbilical hernia repair S/P trigger finger release RIGHT/LEFT Family History Mother Family history of diabetes mellitus Sister Family history of diabetes mellitus Social History Smoking Status: Current every day smoker Tobacco Type: Cigarettes Cigarettes Per Day: 10; Second Hand Exposure: No; Hx Alcohol Use: No Hx Substance Use: No Preferred Language: Belgian Communication Ability: Effective Visual Impairment: No Limitations Rigger Helper Required: No Beliefs That Will Affect Care: None marital status: / Current Living Situation: Alone Current Living Situation Comment: caregivers Other Information That Helps Us Care for You: No Feels Safe at Home: Yes Safety Concerns: Feels Safe At This Time Assistive Devices: Oxygen - Continuous Review of Systems Review of Systems: All systems reviewed & are unremarkable except as noted in HPI & below Physical Exam Constitutional: + obese Respiratory: no respiratory distress, no labored breathing, no retractions and does not use accessory muscles Auscultation: + wheezes; no crackles and no rales Cardiovascular: Rate/Rhythm: + irregularly irregular Heart Sounds: normal S1 and normal S2; no murmur Vessels: no JVD Extremities: no edema Gastrointestinal (Abdomen): Inspection/Auscultation: abdomen normal to inspection and normal bowel sounds; abdomen not distended Percussion/Palpation: abdomen soft; abdomen nontender, no guarding and abdomen not rigid Skin: no rashes, warm and dry Neurologic: deep tendon reflexes 2+ bilaterally and moves all extremities; no focal motor deficits Speech / Cognition: normal speech Motor/Sensory: no tremor Psychiatric: A+Ox3, euthymic affect Results & Data ([facility]) Vital Signs (Past 12 Hours) Vital Signs Temp Pulse Pulse Resp BP BP Pulse Ox 07/02/20 04:09 36.7 C 112 H 18 138/68 97 07/02/20 03:30 84 18 98 07/02/20 03:00 90 18 110/76 98 07/02/20 02:30 103 H 18 110/68 98 07/02/20 01:55 90 18 104/59 L 97 07/02/20 01:31 111 H 18 136/66 97 07/02/20 01:20 37 C 110 H 16 125/71 97 (1) Chest pain Chest pain type: unspecified Qualified Code(s): R07.9 - Chest pain, unspe cified
[2020-07-02] MEDS: dilTIAZem HCL 120 MG CAPCR PO SCH (08:52)
[2020-07-02] MEDS: METOPROLOL TARTRATE 100 MG TAB PO SCH ×2 (08:53→21:03)
[2020-07-02] MEDS: POTASSIUM CHLORIDE 10 MEQ TABCR PO SCH ×3 (08:53→21:01)
[2020-07-02] MEDS: PANTOprazole 40 MG TAB PO SCH (08:53)
[2020-07-02] MEDS: GABAPENTIN 800 MG TAB PO SCH ×2 (08:53→21:04)
[2020-07-02] MEDS: CHOLECALCIFEROL 1,000 UNITS 25 MCG TAB PO SCH (08:53)
[2020-07-02] MEDS: amLODIPine BESYLATE 5 MG TAB PO SCH (08:53)
[2020-07-02] MEDS: METHOCARBAMOL 750 MG TABLET PO SCH ×3 (08:53→21:07)
[2020-07-02] MEDS: MULTIVITAMIN TAB PO SCH (08:53)
[2020-07-02] MEDS: VENLAFAXINE HCL XR 75 MG CAPXR PO SCH (08:54)
[2020-07-02] MEDS: VENLAFAXINE HCL XR 150 MG CAPXR PO SCH (08:54)
[2020-07-02] MEDS: FLUTICASONE/VILANTEROL 200/25MCG 14 PUFFS/INHALER INH SCH (08:54)
[2020-07-02] MEDS: UMECLIDINIUM BROMIDE 62.5MCG/BLISTER 7 PUFFS/INHALER INH SCH (08:54)
[2020-07-02] MEDS: INSULIN GLARGINE SOLOSTAR 100 UNITS/ML 3 ML PEN SC SCH ×2 (08:55→21:02)
[2020-07-02] MEDS ORDERED: PERFLUTREN LIPID MICROSPHERE (DEFINITY) IV ONE (08:55)
[2020-07-02] MEDS: fentaNYL 50 MCG/HR TDSY TD SCH (08:57)
[2020-07-02] MEDS: CHECK fentaNYL PATCH PLACEMENT SCH ×2 (08:58→16:02)
[2020-07-02] MEDS ORDERED: FUROSEMIDE 80 MG TAB PO SCH (09:00)
[2020-07-02] MEDS: oxyCODONE HCL IR 5 MG TAB (IMMEDIATE RELEASE) PO PRN ×3 (10:25→21:13)
[2020-07-02] MEDS: ONDANSETRON INJ 2 MG/ML 2 ML VIAL IV PRN (10:26)
--- NOTE | 2020-07-02 10:45 | Electrocardiogram Report ---
Test Reason : Blood Pressure : / mmHG Vent. Rate : 112 BPM Atrial Rate : 112 BPM P-R Int : 146 ms QRS Dur : 146 ms QT Int : 360 ms P-R-T Axes : 074 096 007 degrees QTc Int : 491 ms Atrial fibrillation with rapid ventricular response Right bundle branch block Abnormal ECG When compared with ECG of 15-MAY-2020 00:43, Atrial fibrillation with rapid ventricular response now present Vent. rate has increased BY 48 BPM T wave inversion more evident in Anterior leads Confirmed by Chandler Kay ([id number]) on 07/02/2020 10:44:50 AM Referred By: REFERRED SELF Confirmed By:Chandler Kay
--- NOTE | 2020-07-02 10:46 | History and Physical Report ---
DATE OF ADMISSION: 07/02/2020 CHIEF COMPLAINT: Chest pain. HISTORY OF PRESENT ILLNESS: This is a 64-year-old female with past medical history significant for hyperlipidemia, hypothyroidism, type 2 diabetes, chronic respiratory failure with hypoxia on 3 liters oxygen all the time, obstructive sleep apnea on CPAP at bedtime, COPD, history of cor pulmonale, paroxysmal atrial fibrillation, venous thrombosis, essential hypertension, venous stasis, chronic kidney disease stage III, Lynn's esophagus, cervical disk displacement, generalized osteoarthrosis, lumbar degenerative disk disease, senile osteoporosis, anemia, tobacco disorder, status post mitral valve repair, depression, PTSD, presents with chest pain. The patient lives alone. At home, she ambulates with a walker, but outside she is on a wheelchair. Family lives close by .At quarter to 12 in the nighttime, she noticed chest pain in the middle of the chest radiating to back, severe in nature with some sweating and she took 3 nitro that did not help and EMS was called and EMS has found her to be in rapid AFib. She was given 15 mg of IV Cardizem by the EMS with improvement of chest pain and heart rate. In the ER, she was given 10 of Cardizem, currently the heart rate is in the 90s, resting comfortably. She states her chest pain is all gone now. Denies any cough, no fever, no chills. She had headache, but right now she has no headache, no blurred vision, no earache, no runny nose, no sore throat. Appetite is okay. No dysphagia, no shortness of breath, no abdominal pain. Normal bowel and bladder movements. There is no blood in stool or black stools. No swelling in the legs. ALLERGIES: STRAWBERRIES, LACTULOSE, LISINOPRIL, WELCHOL, ALPRAZOLAM, BEE VENOM, COLESEVELAM, FLAGYL, LITHIUM, PRINIVIL, METRONIDAZOLE, PREDNISONE. PAST MEDICAL HISTORY: As mentioned above. PAST SURGICAL HISTORY: Hole in the eardrum repaired, left carpal tunnel surgery, , colonoscopies with biopsies, EGDs, incision of the right breast lumpectomy, laparoscopic cholecystectomy, ligation of oviducts, appendectomy, total hysterectomy, umbilical hernia repair, mitral valvotomy for endocarditis. MEDICATIONS: The patient is on Advair Diskus 1 puff inhalation b.i.d., albuterol 2 puffs every 6 hours p.r.n., alendronate 70 mg p.o. daily, amitriptyline 50 mg p.o. at bedtime, amlodipine 5 mg p.o. daily, atorvastatin 40 mg at bedtime, cetirizine 10 mg p.o. at bedtime, vitamin D 1000 units p.o. daily, diclofenac sodium 2 g topically q.i.d. p.r.n., diltiazem 120 mg p.o. a.m., Colace 100 mg p.o. daily p.r.n., epinephrine 0.3 mg IM as directed, fentanyl 50 mcg transdermal q. 72 hours, Lasix 80 mg p.o. b.i.d., gabapentin 800 mg p.o. b.i.d., Lantus 16 units subcutaneous b.i.d., levalbuterol 1.25 mg inhalation every 4 hours p.r.n., methocarbamol 750 mg p.o. t.i.d., metoprolol tartrate 100 mg p.o. b.i.d., multivitamin 1 tablet p.o. a.m., nitroglycerin 0.4 mg sublingual p.r.n., Zofran 8 mg p.o. b.i.d., oxycodone 10 mg p.o. q. 6 hours p.r.n., Protonix 40 mg p.o. a.m., potassium chloride 10 mEq p.o. t.i.d., Spiriva 1 capsule inhalation daily, trazodone 200 mg p.o. at bedtime, venlafaxine 225 mg p.o. a.m., Coumadin 7.5 mg p.o. 2 times a week and 5 mg 5 times a week, zolpidem 5 mg p.o. at bedtime. FAMILY HISTORY: Significant for father had arthritis and gout. Mother has arthritis, diabetes. Sister has Crohn's disease and arthritis. SOCIAL HISTORY: Currently lives alone. Smokes half pack a day for last 49 years. No alcohol use, no drug use. REVIEW OF SYMPTOMS: As per HPI. Rest of review of systems negative. PHYSICAL EXAMINATION: GENERAL: The patient is obese, not in acute distress. VITAL SIGNS: Temperature 37, pulse 80, respiratory rate currently 103, blood pressure 110/68, oxygen 98% on 3 liters. HEENT: Pupils equal, round, reactive to light. Oral mucosa moist. NECK: No JVD, no neck masses. CARDIOVASCULAR: S1, S2 heard, regular rate and rhythm, no murmur, no gallop. RESPIRATORY SYSTEM: Normal AP diameter. No accessory muscle use. No wheezing, no crackles. ABDOMEN: Soft, bowel sounds present, nontender. No distention. CENTRAL NERVOUS SYSTEM: Cranial nerves II-XII grossly intact, nonfocal. EXTREMITIES: No edema, no erythema seen. No chronic skin changes seen. LABORATORY DATA: WBC 8.7, hemoglobin 13.7, hematocrit 41.6, platelets 289. PT 24.8, INR 2.5, APTT 40.6. Sodium 135, potassium 4.3, chloride 98, bicarbonate 30, BUN 22, creatinine 1.5, serum glucose 249, calcium 8.8, magnesium 1.9, total bilirubin 0.3, AST 28, ALT 27, alkaline phosphatase 89. Troponin I less than 0.015. Lipase 121. TSH 1.7. Chest x-ray 03/26/2020 probably mild congestion which is similar to previous x-rays. EKG: Sinus tachycardia with PVCs at a rate of 112. Right bundle branch block. ASSESSMENT AND PLAN: This is a 64-year-old female who presents with chest pain and also in rapid atrial fibrillation. 1. Chest pain. Could be secondary to rapid atrial fibrillation. Initial troponin negative and EKG, no acute ST changes. We will observe in tele floor. Serial enzymes. We will get an echocardiogram. We will keep her n.p.o. and consult cardiology for further recommendations. 2. Rapid atrial fibrillation, received IV Cardizem in the ER and by the EMS. Currently rate is under control.Will continue her home medication of metoprolol and cardizem. On Coumadin and INR therapeutic. Placed on IV Lopressor p.r.n. and monitor in tele floor. 3. Chronic kidney disease stage III, creatinine 1.5, seems to be at baseline. We will follow the labs. 4. History of chronic diastolic congestive heart failure, mild congestion on x-ray, but clinically euvolemic. Continue home Lasix. Monitor for volume overload. 5. History of paroxysmal atrial fibrillation and atrial flutter status post ablation. 6. History of chronic respiratory failure with hypoxia, on home oxygen. Seems stable. 7. History of sleep apnea, on CPAP at bedtime. 8. History of chronic obstructive pulmonary disease. Continue home inhalers. 9. Anxiety and depression. Continue home medications. 10. Hypertension. Continue home medication. Monitor blood pressure. 11. Diabetes, cut back her insulin lantus to 8 units b.i.d. The patient is currently on p.o., insulin sliding scale. We will monitor the blood sugars. 12. Deep venous thrombosis prophylaxis. INR therapeutic. DISPOSITION: Closely monitor in the tele floor. Level 1 full code. Expect discharge home and follow with family doctor. V[facility]ID
[2020-07-02] MEDS ORDERED: STAT IV Infusion **Titration per Protocol STA (11:02)
[2020-07-02] MEDS: dilTIAZem HCL 125 MG in DEXTROSE 5% 100 ML IV SCH ×2 (11:30→22:11)
--- NOTE | 2020-07-02 13:56 | Hospitalist Progress Note ---
Date of Service July 02, 2020 Assessment & Plan (1) Atrial fibrillation with rapid ventricular response: Admitted with chest pain and shortness of breath Noted to have Bk shaffer with RVR at presentation Has been on Cardizem drip and getting oral beta-mana and Cardizem Appreciate cardiology input Echo of the heart showed: Bk shaffer with RVR, EF 65 to 70%, severe concentric LV hypertrophy with flattened septum consistent with RV pressure overload, annuloplasty ring in the mitral position, restricted posterior mitral valve leaflet excursion, no mitral valve stenosis but mild MR, significant TR is absent compared to the study dated 03/02/2020,septal flattening is new May need to have elective cardioversion to revert the rhythm (2) Chest pain: Troponins x3 sets remain negative Patient seems to be free of any pain (3) Pulmonary HTN: (4) Acute on chronic diastolic (congestive) heart failure: Complicating shortness of breath Has been getting intravenous Lasix Monitor PRP (5) Acute exacerbation of chronic obstructive pulmonary disease: Has been wheezing a lot with increasing shortness of breath Will continue inhalers and add a small dose of Solu-Medrol (6) Chronic respiratory failure with hypoxia, on home oxygen therapy: (7) Severe obstructive sleep apnea: DVT prophylaxis Current Coumadin INR is therapeutic at 2.6 Admission and Anticipated Discharge Date Admission Date: July 02, 2020 Subjective The patient was seen and examined in telemetry unit She has been free of any pain but does have some wheezing with deep inspiration He denies any palpitation and/or shortness of breath at rest Review of Systems Review of Systems: All systems reviewed and are unremarkable except as noted below Respiratory: + cough and + wheezing Cardiovascular: + palpitations; no chest pain Physical Exam Physical Exam: Lying in bed comfortably Constitutional: well developed, well nourished and + obese; no acute distress and not ill appearing Eyes: PERRL, conjunctivae normal, anicteric sclerae ENMT: external ear and nose normal, oropharynx normal Neck: trachea midline, no thyromegaly Respiratory: normal respiratory effort; no respiratory distress Auscultation: + diminished lung sounds and + wheezes (Mild to moderate bilateral wheezing) Cardiovascular: Rate/Rhythm: + abnormal rate and + abnormal rhythm Heart Sounds: + murmur (2/6 ejection systolic murmur over the precordium) Gastrointestinal (Abdomen): Inspection/Auscultation: abdomen normal to inspection and normal bowel sounds; abdomen not distended Percussion/Palpation: abdomen soft; abdomen nontender Musculoskeletal: No acute arthritis in any joint Neurologic: moves all extremities; no focal motor deficits Psychiatric: A+Ox3, euthymic affect Lymphatic: no cervical or axillary lymphadenopathy Results & Data Results & Data ([facility]) Vital Signs (Past 12 Hours) Vital Signs Temp Pulse Pulse Resp BP BP Pulse Ox 07/02/20 12:03 139 H 20 103/77 95 07/02/20 11:34 36.8 C 140 H 17 110/70 97 07/02/20 11:00 36.9 C 127 H 18 07/02/20 10:32 128 H 13 116/72 96 07/02/20 10:26 128 H 116/72 07/02/20 10:01 124 H 07/02/20 10:00 125 H 18 07/02/20 08:50 120 H 15 142/115 H 97 07/02/20 08:00 36.8 C 112 H 19 07/02/20 04:09 36.7 C 112 H 18 138/68 97 07/02/20 03:30 84 18 98 07/02/20 03:00 90 18 110/76 98 07/02/20 02:30 103 H 18 110/68 98 07/02/20 01:55 90 18 104/59 L 97 Laboratory Results Short CBC 07/02/20 07/02/20 Range/Units 01:26 06:54 WBC 8.75 7.85 (4.8-10.8) K/uL Hgb 13.7 13.3 (12.0-16.0) g/dL Hct 41.6 41.2 (37-47) % Plt Count 289 297 (130-400) K/uL BMP 07/02/20 07/02/20 07/02/20 01:26 06:54 08:09 Sodium 135 L 138 Potassium 4.3 3.7 Chloride 98 102 Carbon Dioxide 30 33 H BUN 22 H 24 H Creatinine 1.56 H 1.35 H Glucose 249 H 123 H Calcium 8.8 9.4 Cardiac Enzymes 07/02/20 07/02/20 07/02/20 Range/Units 01:26 06:54 13:11 Troponin I < 0.015 0.018 0.023 (0-0.045) ng/ml Liver Function 07/02/20 Range/Units 01:26 Total Bilirubin 0.3 (0.2-1) mg/dl AST 28 (15-37) U/L ALT 27 (12-78) U/L Alkaline Phosphatase 89 (45-117) U/L Albumin 2.9 L (3.4-5.0) gm/dl Medications Administered Current Inpatient Medications Acetaminophen (Acetaminophen 325 Mg Tab) 650 mg PO Q4H PRN PRN Reason: Pain or Fever Stop: 08/01/20 04:02 Albuterol (Albuterol Hfa 8 Gm Inhaler) 2 puffs INH Q6H PRN PRN Reason: Shortness Of Breath Or Wheezing Stop: 08/01/20 04:02 Alendronate Sodium (Alendronate Sodium 70 Mg Tab) 70 mg PO We@0630 [facility] Stop: 08/04/20 06:29 Amitriptyline HCl (Amitriptyline Hcl 50 Mg Tab) 50 mg PO HS JORGE Stop: 08/01/20 20:59 Amlodipine Besylate (Amlodipine Besylate 5 Mg Tab) 5 mg PO DAILY JORGE Stop: 08/01/20 08:59 Last Admin: 07/02/20 08:53 Dose: 5 mg Documented by: Atorvastatin Calcium (Atorvastatin 40 Mg Tab) 40 mg PO HS JORGE Stop: 08/01/20 20:59 Cetirizine HCl (Cetirizine Hcl 10 Mg Tablet) 10 mg PO HS [facility] Stop: 08/01/20 20:59 Dextrose (Dextrose 50% 50 Ml Syringe) 25 - 50 ml IV UD PRN; Protocol PRN Reason: Hypoglycemia Protocol Stop: 08/01/20 04:29 Diclofenac Sodium (Diclofenac Sod 1% Gel 100 Gm Tube) 2 gm EXT QID PRN PRN Reason: Pain Stop: 08/01/20 04:02 Diltiazem HCl (Diltiazem Hcl 120 Mg Capcr) 120 mg PO QAM JORGE Stop: 08/01/20 08:59 Last Admin: 07/02/20 08:52 Dose: 120 mg Documented by: Docusate Sodium (Docusate Sodium 100 Mg Cap) 100 mg PO DAILY PRN PRN Reason: Constipation Stop: 08/01/20 04:15 Fentanyl (Fentanyl 50 Mcg/Hr Tdsy) 50 mcg TD Q3D@0900 JORGE Stop: 07/16/20 08:59 Last Admin: 07/02/20 08:57 Dose: 50 mcg Documented by: Fluticasone/Vilanterol (Fluticasone/Vilanterol 200/25mcg 14 Puffs/Inhaler) 1 p uffs INH DAILY JORGE Stop: 08/01/20 08:59 Last Admin: 07/02/20 08:54 Dose: 1 puffs Documented by: Furosemide (Furosemide 80 Mg Tab) 80 mg PO [id number] [facility] Stop: 08/01/20 08:59 Last Admin: 07/02/20 08:53 Dose: 80 mg Documented by: Gabapentin (Gabapentin 800 Mg Tab) 800 mg PO BID [facility] Stop: 08/01/20 08:59 Last Admin: 07/02/20 08:53 Dose: 800 mg Documented by: Glucagon (Glucagon For Inj 1 Mg Vial) 1 mg SQ UD PRN; Protocol PRN Reason: Hypoglycemia Protocol Stop: 08/01/20 04:29 Glucose (Glucose 40% Gel 15 Gm Tube) 15 - 30 gm PO UD PRN; Protocol PRN Reason: Hypoglycemia Protocol Stop: 08/01/20 04:29 Glucose (Glucose 10 Tabs/Tube) 4 - 8 tabs PO UD PRN; Protocol PRN Reason: Hypoglycemia Protocol Stop: 08/01/20 04:29 Diltiazem HCl 125 mg/ Dextrose 125 mls @ 10 mls/hr IV .[id number] [facility]; Protocol Stop: 08/01/20 11:14 Last Titration: 07/02/20 12:08 Dose: 10 mg/hr, 10 mls/hr Documented by: Furosemide 60 mg/ Syringe 6 mls @ 4 mls/min IV BID17 [facility] Stop: 08/01/20 16:59 Methylprednisolone 40 mg/ (Syringe) 0.64 mls @ 1.5 mls/min IV Q8H [facility] Stop: 08/01/20 12:29 Insulin Aspart (Insulin Aspart 100 Units/Ml 3 Ml Pen) 0 units SC Q6 JORGE Stop: 08/01/20 05:59 Last Admin: 07/02/20 10:34 Dose: Not Given Documented by: Insulin Glargine (Insulin Glargine Solostar 100 Units/Ml 3 Ml Pen) 8 units SC BID [facility] Stop: 08/01/20 08:59 Last Admin: 07/02/20 08:55 Dose: 8 units Documented by: Levalbuterol HCl (Levalbuterol Hcl 1.25 Mg/3 Ml Neb) 1.25 mg INH Q4H PRN PRN Reason: Wheezing Stop: 08/01/20 04:02 Methocarbamol (Methocarbamol 750 Mg Tablet) 750 mg PO TID [facility] Stop: 08/01/20 08:59 Last Admin: 07/02/20 08:53 Dose: 750 mg Documented by: Metoprolol Tartrate (Metoprolol Tartrate 100 Mg Tab) 100 mg PO BID [facility] Stop: 08/01/20 08:59 Last Admin: 07/02/20 08:53 Dose: 100 mg Documented by: Metoprolol Tartrate (Metoprolol Tartrate 1 Mg/Ml Vial) 2.5 mg IV Q4 PRN PRN Reason: Tachycardia Stop: 08/01/20 04:02 Last Admin: 07/02/20 10:26 Dose: 2.5 mg Documented by: Miscellaneous (Fentanyl Patch Remove & Waste) 1 ea N/A Q3D [facility] Stop: 08/01/20 08:58 Last Admin: 07/02/20 08:58 Dose: 1 ea Documented by: Miscellaneous (Check Fentanyl Patch Placement) 1 ea N/A QS [facility] Stop: 08/01/20 07:59 Last Admin: 07/02/20 08:58 Dose: 1 ea Documented by: Miscellaneous (Remove Nicoderm Patch) 1 ea N/A DAILY@0859 [facility] Stop: 08/02/20 08:58 Miscellaneous (Carbohydrates For Hypoglycemia ) 15 - 30 gm PO UD PRN PRN Reason: Hypoglycemia Treatment Stop: 08/01/20 04:29 Multivitamins (Multivitamin Tab) 1 tab PO QAM [facility] Stop: 08/01/20 08:59 Last Admin: 07/02/20 08:53 Dose: 1 tab Documented by: Nicotine (Nicotine 14 Mg/24 Hr Patch) 14 mg TD QAM [facility] Stop: 08/01/20 04:02 Last Admin: 07/02/20 05:48 Dose: 14 mg Documented by: Nitroglycerin (Nitroglycerin Sl 0.4 Mg/Tab Tab) 0.4 mg SL UD PRN PRN Reason: Chest Pain Stop: 08/01/20 04:02 Ondansetron HCl (Ondansetron Inj 2 Mg/Ml 2 Ml Vial) 4 mg IV Q6H PRN PRN Reason: Nausea Stop: 08/01/20 04:02 Last Admin: 07/02/20 10:26 Dose: 4 mg Documented by: Oxycodone HCl (Oxycodone Hcl Ir 5 Mg Tab (Immediate Release)) 10 mg PO Q6 PRN PRN Reason: Pain Stop: 07/16/20 04:02 Last Admin: 07/02/20 10:25 Dose: 10 mg Documented by: Pantoprazole Sodium (Pantoprazole 40 Mg Tab) 40 mg PO QAM [facility] Stop: 08/01/20 08:59 Last Admin: 07/02/20 08:53 Dose: 40 mg Documented by: Potassium Chloride (Potassium Chloride 10 Meq Tabcr) 10 meq PO TID [facility] Stop: 08/01/20 08:59 Last Admin: 07/02/20 08:53 Dose: 10 meq Documented by: Trazodone HCl (Trazodone Hcl 100 Mg Tab) 200 mg PO [facility] Stop: 08/01/20 20:59 Umeclidinium [place] (Umeclidinium [place] 62.5mcg/Blister 7 Puffs/Inhaler) 1 puffs INH [facility] Stop: 08/01/20 08:59 Last Admin: 07/02/20 08:54 Dose: 1 puffs Documented by: Venlafaxine HCl (Venlafaxine Hcl Xr 150 Mg Capxr) 150 mg PO [facility] Stop: 08/01/20 08:59 Last Admin: 07/02/20 08:54 Dose: 150 mg Documented by: Venlafaxine HCl (Venlafaxine Hcl Xr 75 Mg Capxr) 75 mg PO [facility] Stop: 08/01/20 08:59 Last Admin: 07/02/20 08:54 Dose: 75 mg Documented by: Vitamin D (Cholecalciferol 1,000 Units 25 Mcg Tab) 1,000 units PO [facility] Stop: 08/01/20 08:59 Last Admin: 07/02/20 08:53 Dose: 1,000 units Documented by: Warfarin Sodium (Warfarin Sod 7.5 Mg Tab) 7.5 mg PO [id number]@1600 [facility] Stop: 08/02/20 15:59 Warfarin Sodium (Warfarin Sod 5 Mg Tab) 5 mg PO SuTuWeThSa@1600 [facility] Stop: 08/01/20 15:59 Zolpidem Tartrate (Zolpidem Tartrate 5 Mg Tab) 5 mg PO [facility] Stop: 08/01/20 20:59
[2020-07-02] MEDS: methylPREDNISolone 40 MG in SYRINGE 0 ML IV SCH ×2 (14:18→21:00)
[2020-07-02] MEDS: WARFARIN SOD 5 MG TAB PO SCH (16:02)
[2020-07-02] MEDS: FUROSEMIDE 60 MG in SYRINGE 0 ML IV SCH (16:03)
[2020-07-02] MEDS: traZODone HCL 100 MG TAB PO SCH (21:00)
[2020-07-02] MEDS: AMITRIPTYLINE HCL 50 MG TAB PO SCH (21:01)
[2020-07-02] MEDS: ATORVASTATIN 40 MG TAB PO SCH (21:02)
[2020-07-02] MEDS: CETIRIZINE HCL 10 MG TABLET PO SCH (21:09)
[2020-07-02] MEDS: ZOLPIDEM TARTRATE 5 MG TAB PO SCH (21:13)
[2020-07-03] MEDS: CHECK fentaNYL PATCH PLACEMENT SCH ×3 (01:06→16:36)
[2020-07-03] MEDS: oxyCODONE HCL IR 5 MG TAB (IMMEDIATE RELEASE) PO PRN (03:21)
[2020-07-03] MEDS: methylPREDNISolone 40 MG in SYRINGE 0 ML IV SCH (03:21)
[2020-07-03 04:22] LABS: Hematocrit (blood only) 42.1 % (37-47); Hemoglobin 13.7 g/dL (12.0-16.0); Immature Granulocytes # (auto) 0.01 K/uL (0.00-0.02); Immature Granulocytes % (auto) 0.1 %; Lymphocytes # (auto) 0.74 K/uL (1.2-3.4); Lymphocytes % (auto) 10.4 %; Mean Corpuscular Hemoglobin 30.1 pg (25-34); Mean Corpuscular Hgb Conc 32.5 g/dL (32-36); Mean Corpuscular Volume 92.5 fL (80-100); Mean Platelet Volume 9.6 fL (7.4-10.4); Monocytes % (auto) 1.4 %; Neutrophils # (auto) 6.28 K/uL (1.4-6.5); Neutrophils % (auto) 88.1 %; Platelet Count 300 K/uL (130-400); RDW Standard Deviation 47.4 fL (36.4-46.3); Red Blood Count 4.55 M/uL (4.2-5.4); White Blood Count 7.13 K/uL (4.8-10.8)
[2020-07-03 04:32] LABS: INR 2.4 (0.9-1.1); Prothrombin Time 24.6 Seconds (9.0-12.0)
[2020-07-03 04:43] LABS: BUN Creatinine Ratio 14.9 (10-20); Calcium 9.2 mg/dl (8.5-10.1); Creatinine Clr Calc Pharmacy 34.6 ml/min; Est GFR (Non-African American) 27.6; Magnesium 2.1 mg/dl (1.8-2.4); Potassium 4.5 mmol/L (3.5-5.1)
[2020-07-03 06:54] LABS: Estimated Average Glucose 169 mg/dl; Hemoglobin A1C 7.5 % (4.5-5.6)
[2020-07-03] MEDS: dilTIAZem HCL 125 MG in DEXTROSE 5% 100 ML IV SCH (07:54)
[2020-07-03] MEDS: INSULIN ASPART 100 UNITS/ML 3 ML PEN SC SCH ×4 (07:54→20:41)
[2020-07-03] MEDS: FLUTICASONE/VILANTEROL 200/25MCG 14 PUFFS/INHALER INH SCH (07:56)
[2020-07-03] MEDS: INSULIN GLARGINE SOLOSTAR 100 UNITS/ML 3 ML PEN SC SCH ×2 (07:56→20:40)
[2020-07-03] MEDS: UMECLIDINIUM BROMIDE 62.5MCG/BLISTER 7 PUFFS/INHALER INH SCH (07:56)
[2020-07-03] MEDS: MULTIVITAMIN TAB PO SCH (07:57)
[2020-07-03] MEDS: dilTIAZem HCL 120 MG CAPCR PO SCH (07:57)
[2020-07-03] MEDS: VENLAFAXINE HCL XR 150 MG CAPXR PO SCH (07:57)
[2020-07-03] MEDS: METOPROLOL TARTRATE 100 MG TAB PO SCH ×2 (07:57→20:41)
[2020-07-03] MEDS: amLODIPine BESYLATE 5 MG TAB PO SCH (07:57)
[2020-07-03] MEDS: GABAPENTIN 800 MG TAB PO SCH ×2 (07:57→20:41)
[2020-07-03] MEDS: PANTOprazole 40 MG TAB PO SCH (07:57)
[2020-07-03] MEDS: VENLAFAXINE HCL XR 75 MG CAPXR PO SCH (07:58)
[2020-07-03] MEDS: CHOLECALCIFEROL 1,000 UNITS 25 MCG TAB PO SCH (07:58)
[2020-07-03] MEDS: NICOTINE 14 MG/24 HR PATCH TD SCH (07:58)
[2020-07-03] MEDS: METHOCARBAMOL 750 MG TABLET PO SCH ×3 (07:58→20:41)
[2020-07-03] MEDS: POTASSIUM CHLORIDE 10 MEQ TABCR PO SCH (07:58)
[2020-07-03] MEDS: FUROSEMIDE 60 MG in SYRINGE 0 ML IV SCH (07:59)
--- NOTE | 2020-07-03 08:59 | Electrocardiogram Report ---
Test Reason : Blood Pressure : / mmHG Vent. Rate : 084 BPM Atrial Rate : 286 BPM P-R Int : 000 ms QRS Dur : 136 ms QT Int : 392 ms P-R-T Axes : 000 107 -08 degrees QTc Int : 463 ms Atrial flutter with variable A-V block Right bundle branch block Abnormal ECG When compared with ECG of 02-JUL-2020 01:20, HR has decreased by 28 bpm T wave inversion less evident in Anterior leads Confirmed by Noé Hernandez [id number]) on 07/03/2020 8:59:19 AM Referred By: REFERRED SELF Confirmed By:Noé Hernandez
--- NOTE | 2020-07-03 09:07 | Cardiology Progress Note ---
Date of Service July 03, 2020 Assessment & Plan (1) Atrial fibrillation with rapid ventricular response: (2) Chest pain: (3) S/P MVR (mitral valve repair): (4) Acute on chronic diastolic (congestive) heart failure: (5) Pulmonary HTN: (6) Acute exacerbation of chronic obstructive pulmonary disease: Symptomatically improved. Rate controlled atrial flutter with a therapeutic INR Normovolemic Acute on chronic renal dysfunction COPD exacerbation Continue oral metoprolol, oral cardizem, and IV intravenous Cardizem infusion for rate control Portable CXR today Hold IV furosemide and oral potassium. NPO after midnight except for medications ? Direct current cardioversion in AM on 07/04 or 07/05, pending respiratory status Admission and Anticipated Discharge Date Admission Date: July 02, 2020 Supervising Physician Co-Signing Physician Notes Patient seen examined the bedside. Denies chest pain or unusual shortness of breath. Cough and wheezing resolved with corticosteroids. Voices concern regarding elevated glucose. Heart rate improved. Currently atrial flutter with controlled ventricular response on telemetry. Diltiazem infusion reduced to 10 mg/h this morning. Offers no other concerns/complaints at this time. PE: Gen: NAD, AAOx3. Heart: Irregular rhythm, normal S1 and S2. No murmur appreciated. Lungs: Diminished breath sounds bilateral. No rales, rhonchi, or wheeze. Extremities: No edema. Neuro, no focal deficit. A/P: Agree with above PA-C history, physical exam, assessment and plan. Risk, benefits, alternatives to external direct-current cardioversion discussed with patient at length. She is agreeable to proceed in a.m. INR therapeutic greater than 4 weeks per review of records. Wean intravenous Cardizem infusion as tolerated. Tentative plan for discharge in 24 to 48 hours. Subjective Patient seen and examined. Chart, medications, and telemetry reviewed. "I'm great. I'm ready to go home." Chest pain (pleurtic type discomfort leading to presentation) has resolved. Dyspnea has improved. Ongoing cough productive of yellow sputum. Telemetry: Atrial flutter with variable AV block, currently in the 70's and 80's. EKG today demonstrates atrial flutter with variable A-V block, right bundle branch block, nonspecific T wave abnormality Review of Systems Review of Systems: All systems reviewed & are unremarkable except as noted in HPI & below Constitutional: + fatigue Ear, Nose, Mouth, Throat: + dry mouth Respiratory: + cough, + chest congestion and + dyspnea; no hemoptysis Cardiovascular: + claudication; no orthopnea, no syncope and no edema Gastrointestinal: no nausea, no vomiting and no diarrhea/loose stools Psychiatric: + depression Physical Exam Physical Exam: General: A&Ox3. NAD. HEENT: Normocephalic. Atraumatic. PER. Conjunctiva pink, sclera clear. Neck: No carotid bruits. No JVD. No HJR. Heart: Irregularly irregular in the 80's. Lungs: Decreased. Diminished. Scattered rhonchi. No wheeze Abdomen: +BS. Soft. Nontender. No masses or organomegaly. Extremities: Stasis changes. No edema. No clubbing or cyanosis. Limited neurological examination is without focal deficits. Pulses: Posterior tibial=1/4. Results & Data ([facility]) Vital Signs (Past 12 Hours) Vital Signs Temp Pulse Pulse Resp BP Pulse Ox 07/03/20 08:13 36.9 C 85 26 H 116/56 L 97 07/02/20 22:24 105 H 16 93 Laboratory Results Laboratory Results - last 24 hr 07/02/20 07/02/20 07/02/20 06:54 10:29 13:11 WBC RBC Hgb Hct MCV MCH MCHC RDW Std Deviation RDW Coeff of King Plt Count MPV Immature Gran % (Auto) Neut % (Auto) Lymph % (Auto) [place] % (Auto) Eos % (Auto) Baso % (Auto) Neut # (Auto) Lymph # (Auto) [place] # (Auto) Eos # (Auto) Baso # (Auto) Immature Gran # (Auto) PT INR Sodium Potassium Chloride Carbon Dioxide Anion Gap BUN Creatinine Est Cr Clr Drug Dosing Est GFR ( Amer) Est GFR (Non-Af Amer) BUN/Creatinine Ratio Glucose POC Glucose 125 H Estimat Average Glucose 169 Hemoglobin A1c 7.5 H Calcium Magnesium Troponin I 0.023 07/02/20 07/02/20 07/03/20 16:01 20:44 04:09 WBC 7.13 RBC 4.55 Hgb 13.7 Hct 42.1 MCV 92.5 MCH 30.1 MCHC 32.5 RDW Std Deviation 47.4 H RDW Coeff of King 14.0 Plt Count 300 MPV 9.6 Immature Gran % (Auto) 0.1 Neut % (Auto) 88.1 Lymph % (Auto) 10.4 Haskell % (Auto) 1.4 Eos % (Auto) 0.0 Baso % (Auto) 0.0 Neut # (Auto) 6.28 Lymph # (Auto) 0.74 L Haskell # (Auto) 0.10 L Eos # (Auto) 0.00 Baso # (Auto) 0.00 Immature Gran # (Auto) 0.01 PT INR Sodium Potassium Chloride Carbon Dioxide Anion Gap BUN Creatinine Est Cr Clr Drug Dosing Est GFR ( Amer) Est GFR (Non-Af Amer) BUN/Creatinine Ratio Glucose POC Glucose 119 H 241 H Estimat Average Glucose Hemoglobin A1c Calcium Magnesium Troponin I 07/03/20 07/03/20 07/03/20 04:09 04:09 07:24 WBC RBC Hgb Hct MCV MCH MCHC RDW Std Deviation RDW Coeff of King Plt Count MPV Immature Gran % (Auto) Neut % (Auto) Lymph % (Auto) [place] % (Auto) Eos % (Auto) Baso % (Auto) Neut # (Auto) Lymph # (Auto) Haskell # (Auto) Eos # (Auto) Baso # (Auto) Immature Gran # (Auto) PT 24.6 H INR 2.4 H Sodium 136 Potassium 4.5 D Chloride 98 Carbon Dioxide 32 Anion Gap 6.0 BUN 28 H Creatinine 1.90 H D Est Cr Clr Drug Dosing 34.6 Est GFR ( Amer) 32.0 Est GFR (Non-Af Amer) 27.6 BUN/Creatinine Ratio 14.9 Glucose 296 H POC Glucose 316 H* Estimat Average Glucose Hemoglobin A1c Calcium 9.2 Magnesium 2.1 Troponin I 07/03/20 07:26 WBC RBC Hgb Hct MCV MCH MCHC RDW Std Deviation RDW Coeff of King Plt Count MPV Immature Gran % (Auto) Neut % (Auto) Lymph % (Auto) [place] % (Auto) Eos % (Auto) Baso % (Auto) Neut # (Auto) Lymph # (Auto) [place] # (Auto) Eos # (Auto) Baso # (Auto) Immature Gran # (Auto) PT INR Sodium Potassium Chloride Carbon Dioxide Anion Gap BUN Creatinine Est Cr Clr Drug Dosing Est GFR ( Amer) Est GFR (Non-Af Amer) BUN/Creatinine Ratio Glucose POC Glucose 310 H* Estimat Average Glucose Hemoglobin A1c Calcium Magnesium Troponin I Diagnostic Findings See above (1) Chest pain Chest pain type: precordial pain Qualified Code(s): R07.2 - Precordial pain
--- NOTE | 2020-07-03 09:14 | Electrocardiogram Report ---
Test Reason : Blood Pressure : / mmHG Vent. Rate : 079 BPM Atrial Rate : 227 BPM P-R Int : 000 ms QRS Dur : 150 ms QT Int : 442 ms P-R-T Axes : 000 085 033 degrees QTc Int : 506 ms Atrial flutter with variable A-V block Right bundle branch block Abnormal ECG When compared with ECG of 02-JUL-2020 13:20, No significant change Confirmed by Noé Hernandez [id number]) on 07/03/2020 9:13:58 AM Referred By: REFERRED SELF Confirmed By:Noé Hernandez
--- NOTE | 2020-07-03 09:55 | XRay Report ---
XR chest 1V portable CLINICAL HISTORY: cough COMPARISON STUDY: 07/02/2020 FINDINGS: The heart remains enlarged. There are postsurgical changes of a valvular replacement. There is persistent diffuse elevation of interstitium, consistent with a pulmonary edema type pattern. An interstitial infectious/inflammatory process could appear similar.[ IMPRESSION: No change in the diffusely elevated interstitium. This could represent interstitial pulmo nary edema, or an interstitial infectious/inflammatory process. ACT 112: Negative or not required by law. Electronically signed by: Cesar Lopez M.D. 07/03/2020 9:54 AM
--- NOTE | 2020-07-03 14:50 | Hospitalist Progress Note ---
Date of Service July 03, 2020 Assessment & Plan (1) Atrial fibrillation with rapid ventricular response: Admitted with chest pain and shortness of breath Noted to have A. fib with RVR at presentation Has been on Cardizem drip and getting oral beta-mana and Cardizem Appreciate cardiology input Echo of the heart showed: A. fib with RVR, EF 65 to 70%, severe concentric LV hypertrophy with flattened septum consistent with RV pressure overload, annuloplasty ring in the mitral position, restricted posterior mitral valve leaflet excursion, no mitral valve stenosis but mild MR, significant TR is absent compared to the study dated 03/02/2020,septal flattening is new May need to have elective cardioversion to revert the rhythm Remains tachycardic with atrial flutter with variable block Has been getting Cardizem drip , oral Cardizem and oral beta-mana We will have elective cardioversion tomorrow (2) Chest pain: Troponins x3 sets remain negative Patient seems to be free of any pain (3) Pulmonary HTN: (4) Acute on chronic diastolic (congestive) heart failure: Complicating shortness of breath Has been getting intravenous Lasix Monitor PRP (5) Acute exacerbation of chronic obstructive pulmonary disease: Has been wheezing a lot with increasing shortness of breath * Will continue inhalers and add a small dose of Solu-Medrol * Clinically a lot better today and will give oral prednisone from tomorrow to complete a 5 days course in total (6) Chronic respiratory failure with hypoxia, on home oxygen therapy: (7) Severe obstructive sleep apnea: Continue CPAP DVT prophylaxis Current Coumadin INR is therapeutic at 2.6 Admission and Anticipated Discharge Date Admission Date: July 02, 2020 Subjective The patient was seen and examined in telemetry unit She has been free of any pain but does have some wheezing with deep inspiration He denies any palpitation and/or shortness of breath at rest 07/03/2020 The patient was seen and examined in telemetry unit She has been feeling a lot better and denies any palpitation and/or shortness of breath at rest She remains tachycardic with a flutter Review of Systems Review of Systems: All systems reviewed and are unremarkable except as noted below Respiratory: + cough and + wheezing Cardiovascular: + palpitations; no chest pain Physical Exam Physical Exam: Lying in bed comfortably Constitutional: well developed, well nourished and + obese; no acute distress and not ill appearing Eyes: PERRL, conjunctivae normal, anicteric sclerae ENMT: external ear and nose normal, oropharynx normal Neck: trachea midline, no thyromegaly Respiratory: normal respiratory effort; no respiratory distress Au scultation: + diminished lung sounds and + wheezes (Mild to moderate bilateral wheezing) Cardiovascular: Rate/Rhythm: + abnormal rate and + abnormal rhythm Heart Sounds: + murmur (2/6 ejection systolic murmur over the precordium) Gastrointestinal (Abdomen): Inspection/Auscultation: abdomen normal to inspection and normal bowel sounds; abdomen not distended Percussion/Palpation: abdomen soft; abdomen nontender Musculoskeletal: No acute arthritis involving any joint Neurologic: moves all extremities; no focal motor deficits Psychiatric: A+Ox3, euthymic affect Lymphatic: no cervical or axillary lymphadenopathy Results & Data Results & Data ([facility]) Vital Signs (Past 12 Hours) Vital Signs Temp Pulse Resp BP Pulse Ox 07/03/20 12:00 36.9 C 57 L 22 131/54 L 97 07/03/20 08:13 36.9 C 85 26 H 116/56 L 97 Laboratory Results Short CBC 07/03/20 Range/Units 04:09 WBC 7.13 (4.8-10.8) K/uL Hgb 13.7 (12.0-16.0) g/dL Hct 42.1 (37-47) % Plt Count 300 (130-400) K/uL BMP 07/03/20 04:09 Sodium 136 Potassium 4.5 D Chloride 98 Carbon Dioxide 32 BUN 28 H Creatinine 1.90 H D Glucose 296 H Calcium 9.2 Medications Administered Current Inpatient Medications Acetaminophen (Acetaminophen 325 Mg Tab) 650 mg PO Q4H PRN PRN Reason: Pain or Fever Stop: 08/01/20 04:02 Last Admin: 07/02/20 14:19 Dose: 650 mg Documented by: Albuterol (Albuterol Hfa 8 Gm Inhaler) 2 puffs INH Q6H PRN PRN Reason: Shortness Of Breath Or Wheezing Stop: 08/01/20 04:02 Alendronate Sodium (Alendronate Sodium 70 Mg Tab) 70 mg PO We@0630 JORGE Stop: 08/04/20 06:29 Amitriptyline HCl (Amitriptyline Hcl 50 Mg Tab) 50 mg PO HS JORGE Stop: 08/01/20 20:59 Last Admin: 07/02/20 21:01 Dose: 50 mg Documented by: Amlodipine Besylate (Amlodipine Besylate 5 Mg Tab) 5 mg PO DAILY JORGE Stop: 08/01/20 08:59 Last Admin: 07/03/20 07:57 Dose: 5 mg Documented by: Atorvastatin Calcium (Atorvastatin 40 Mg Tab) 40 mg PO HS JORGE Stop: 08/01/20 20:59 Last Admin: 07/02/20 21:02 Dose: 40 mg Documented by: Cetirizine HCl (Cetirizine Hcl 10 Mg Tablet) 10 mg PO HS JORGE Stop: 08/01/20 20:59 Last Admin: 07/02/20 21:09 Dose: 10 mg Documented by: Dextrose (Dextrose 50% 50 Ml Syringe) 25 - 50 ml IV UD PRN; Protocol PRN Reason: Hypoglycemia Protocol Stop: 08/01/20 04:29 Diclofenac Sodium (Diclofenac Sod 1% Gel 100 Gm Tube) 2 gm EXT QID PRN PRN Reason: Pain Stop: 08/01/20 04:02 Diltiazem HCl (Diltiazem Hcl 120 Mg Capcr) 120 mg PO QAM [facility] Stop: 08/01/20 08:59 Last Admin: 07/03/20 07:57 Dose: 120 mg Documented by: Docusate Sodium (Docusate Sodium 100 Mg Cap) 100 mg PO DAILY PRN PRN Reason: Constipation Stop: 08/01/20 04:15 Fentanyl (Fentanyl 50 Mcg/Hr Tdsy) 50 mcg TD Q3D@0900 [facility] Stop: 07/16/20 08:59 Last Admin: 07/02/20 08:57 Dose: 50 mcg Documented by: Fluticasone/Vilanterol (Fluticasone/Vilanterol 200/25mcg 14 Puffs/Inhaler) 1 puffs INH DAILY JORGE Stop: 08/01/20 08:59 Last Admin: 07/03/20 07:56 Dose: 1 puffs Documented by: Furosemide (Furosemide 80 Mg Tab) 80 mg PO BID17 JORGE Stop: 08/01/20 08:59 Last Admin: 07/02/20 08:53 Dose: 80 mg Documented by: Gabapentin (Gabapentin 800 Mg Tab) 800 mg PO BID [facility] Stop: 08/01/20 08:59 Last Admin: 07/03/20 07:57 Dose: 800 mg Documented by: Glucagon (Glucagon For Inj 1 Mg Vial) 1 mg SQ UD PRN; Protocol PRN Reason: Hypoglycemia Protocol Stop: 08/01/20 04:29 Glucose (Glucose 40% Gel 15 Gm Tube) 15 - 30 gm PO UD PRN; Protocol PRN Reason: Hypoglycemia Protocol Stop: 08/01/20 04:29 Glucose (Glucose 10 Tabs/Tube) 4 - 8 tabs PO UD PRN; Protocol PRN Reason: Hypoglycemia Protocol Stop: 08/01/20 04:29 Diltiazem HCl 125 mg/ Dextrose 125 mls @ 0 mls/hr IV .Q0M JORGE; Protocol Stop: 08/01/20 11:14 Last Titration: 07/03/20 14:20 Dose: 0 mg/hr, 0 mls/hr Documented by: Furosemide 60 mg/ Syringe 6 mls @ 4 mls/min IV BID17 [facility] Stop: 08/01/20 16:59 Last Admin: 07/03/20 07:59 Dose: 4 mls/min Documented by: Insulin Aspart (Insulin Aspart 100 Units/Ml 3 Ml Pen) 0 units SC ACHS [facility] Stop: 08/01/20 16:29 Last Admin: 07/03/20 11:56 Dose: 13 units Documented by: Insulin Glargine (Insulin Glargine Solostar 100 Units/Ml 3 Ml Pen) 8 units SC BID [facility] Stop: 08/01/20 08:59 Last Admin: 07/03/20 07:56 Dose: 8 units Documented by: Levalbuterol HCl (Levalbuterol Hcl 1.25 Mg/3 Ml Neb) 1.25 mg INH Q4H PRN PRN Reason: Wheezing Stop: 08/01/20 04:02 Methocarbamol (Methocarbamol 750 Mg Tablet) 750 mg PO TID [facility] Stop: 08/01/20 08:59 Last Admin: 07/03/20 07:58 Dose: 750 mg Documented by: Metoprolol Tartrate (Metoprolol Tartrate 100 Mg Tab) 100 mg PO BID [facility] Stop: 08/01/20 08:59 Last Admin: 07/03/20 07:57 Dose: 100 mg Documented by: Metoprolol Tartrate (Metoprolol Tartrate 1 Mg/Ml Vial) 2.5 mg IV Q4 PRN PRN Reason: Tachycardia Stop: 08/01/20 04:02 Last Admin: 07/02/20 10:26 Dose: 2.5 mg Documented by: Miscellaneous (Fentanyl Patch Remove & Waste) 1 ea N/A Q3D [facility] Stop: 08/01/20 08:58 Last Admin: 07/02/20 08:58 Dose: 1 ea Documented by: Tegancellaneous (Check Fentanyl Patch Placement) 1 ea N/A QS [facility] Stop: 08/01/20 07:59 Last Admin: 07/03/20 07:59 Dose: 1 ea Documented by: Tegancellsneha (Remove Nicoderm Patch) 1 ea N/A DAILY@0859 [facility] Stop: 08/02/20 08:58 Last Admin: 07/03/20 07:59 Dose: 1 ea Documented by: Awais (Carbohydrates For Hypoglycemia ) 15 - 30 gm PO UD PRN PRN Reason: Hypoglycemia Treatment Stop: 08/01/20 04:29 Multivitamins (Multivitamin Tab) 1 tab PO [facility] Stop: 08/01/20 08:59 Last Admin: 07/03/20 07:57 Dose: 1 tab Documented by: Nicotine (Nicotine 14 Mg/24 Hr Patch) 14 mg TD [facility] Stop: 08/01/20 04:02 Last Admin: 07/03/20 07:58 Dose: 14 mg Documented by: Nitroglycerin (Nitroglycerin Sl 0.4 Mg/Tab Tab) 0.4 mg SL UD PRN PRN Reason: Chest Pain Stop: 08/01/20 04:02 Ondansetron HCl (Ondansetron Inj 2 Mg/Ml 2 Ml Vial) 4 mg IV Q6H PRN PRN Reason: Nausea Stop: 08/01/20 04:02 Last Admin: 07/02/20 10:26 Dose: 4 mg Documented by: Oxycodone HCl (Oxycodone Hcl Ir 5 Mg Tab (Immediate Release)) 10 mg PO Q6 PRN PRN Reason: Pain Stop: 07/16/20 04:02 Last Admin: 07/03/20 03:21 Dose: 10 mg Documented by: Pantoprazole Sodium (Pantoprazole 40 Mg Tab) 40 mg PO QAM [facility] Stop: 08/01/20 08:59 Last Admin: 07/03/20 07:57 Dose: 40 mg Documented by: Potassium Chloride (Potassium Chloride 10 Meq Tabcr) 10 meq PO TID [facility] Stop: 08/01/20 08:59 Last Admin: 07/03/20 07:58 Dose: 10 meq Documented by: Prednisone (Prednisone 20 Mg Tab) 20 mg PO DAILY [facility] Stop: 08/03/20 08:59 Trazodone HCl (Trazodone Hcl 100 Mg Tab) 200 mg PO [facility] Stop: 08/01/20 20:59 Last Admin: 07/02/20 21:00 Dose: 200 mg Documented by: Umeclidinium [place] (Umeclidinium [place] 62.5mcg/Blister 7 Puffs/Inhaler) 1 puffs INH [facility] Stop: 08/01/20 08:59 Last Admin: 07/03/20 07:56 Dose: 1 puffs Documented by: Venlafaxine HCl (Venlafaxine Hcl Xr 150 Mg Capxr) [facility] Stop: 08/01/20 08:59 Last Admin: 07/03/20 07:57 Dose: 150 mg Documented by: Venlafaxine HCl (Venlafaxine Hcl Xr 75 Mg Capxr) 75 mg PO [facility] Stop: 08/01/20 08:59 Last Admin: 07/03/20 07:58 Dose: 75 mg Documented by: Vitamin D (Cholecalciferol 1,000 Units 25 Mcg Tab) 1,000 units PO QAM [facility] Stop: 08/01/20 08:59 Last Admin: 07/03/20 07:58 Dose: 1,000 units Documented by: Warfarin Sodium (Warfarin Sod 7.5 Mg Tab) 7.5 mg PO MoFr@1600 [facility] Stop: 08/02/20 15:59 Warfarin Sodium (Warfarin Sod 5 Mg Tab) 5 mg PO SuTuWeThSa@1600 [facility] Stop: 08/01/20 15:59 Last Admin: 07/02/20 16:02 Dose: 5 mg Documented by: Zolpidem Tartrate (Zolpidem Tartrate 5 Mg Tab) 5 mg PO [facility] Stop: 08/01/20 20:59 Last Admin: 07/02/20 21:13 Dose: 5 mg Documented by: (1) Chest pain Chest pain type: precordial pain Qualified Code(s): R07.2 - Precordial pain
--- NOTE | 2020-07-03 14:51 | Anesthesiology Consultation ---
Date of Service July 03, 2020 Assessment & Plan Chart Review Chart Review: Acceptable Risk for Surgery Consults Requested none History Surgery Operation Date: 07/04/20 07:15 Proposed Procedures p Cardioversion Spiral Tube Winder Helper w/Anesthesia - Sree Quinonez DO Height/Weight Height: 5 ft 4 in Weight: 99 kg Allergies Allergy/AdvReac Type Severity Reaction Status Date / Time bee venom protein (honey bee) Allergy Severe SWELLING Verified 07/02/20 01:55 lisinopril Allergy Intermediate FACE Verified 07/02/20 01:55 SWELLING potato Allergy Intermediate BBQ chips Verified 07/02/20 01:55 - facial swelling metronidazole Allergy Mild FACE Verified 07/02/20 01:55 SWELLING strawberry Allergy Mild HIVES Verified 07/02/20 01:55 alprazolam Allergy Unknown RED FACE, Verified 07/02/20 01:55 FACE SWELLING lactose AdvReac Intermediate VOMTING Verified 07/02/20 01:55 DIARRHEA ABDOMINAL PAIN-LACTOSE INTOLERANCE prednisone AdvReac Mild AGGRESSIVE Verified 07/02/20 01:55 BEHAVIOR colesevelam AdvReac Unknown unknown Verified 07/02/20 01:55 lithium AdvReac Unknown jitters Verified 07/02/20 01:55 Medications Home Medications Medication Instructions Recorded Confirmed Last Taken Spiriva with HandiHaler 1 cap INHALATION QAM 06/19/18 07/02/20 03/01/20 atorvastatin 40 mg PO HS 06/19/18 07/02/20 03/01/20 cetirizine 10 mg PO HS 06/19/18 07/02/20 03/01/20 cholecalciferol (vitamin D3) 1,000 unit PO QAM 06/19/18 07/02/20 03/01/20 [Vitamin D3] docusate sodium 100 mg PO DAILY PRN 06/19/18 07/02/20 03/21/19 epinephrine [EpiPen] 0.3 mg IM DIRECTED PRN 06/19/18 07/02/20 06/28/18 fentanyl 50 mcg TRANSDERMAL [id number] 06/19/18 07/02/20 03/21/20 furosemide 80 mg PO BID 06/19/18 07/02/20 03/01/20 methocarbamol 750 mg PO TID 06/19/18 07/02/20 03/01/20 multivitamin 1 tab PO QAM 06/19/18 07/02/2020 ondansetron 8 mg PO BID 06/19/18 07/02/20 07/28/18 venlafaxine 150 mg PO QAM 06/19/18 07/02/20 03/01/20 warfarin 5 mg PO 5XWK 06/19/18 07/02/20 03/23/20 14:00 5 MG trazodone 200 mg PO HS 09/14/18 07/02/20 09/19/19 venlafaxine 75 mg PO QAM 09/14/18 07/02/20 03/01/20 zolpidem 5 mg PO HS 09/14/18 07/02/20 07/12/19 20:00 amitriptyline 50 mg PO HS 05/28/19 07/02/20 03/01/20 diclofenac sodium 2 g TOPICAL QID PRN 05/28/19 07/02/20 Unknown gabapentin 800 mg PO BID 05/28/19 07/02/20 03/01/20 alendronate 70 mg tablet 70 mg PO WK tab 06/10/19 07/02/20 03/01/20 warfarin 7.5 mg PO 2XWK 09/19/19 07/02/20 03/24/20 14:00 7.5 MG Lantus U-100 Insulin 16 unit SUBCUT BID 03/02/20 07/02/20 03/01/20 diltiazem HCl 120 mg PO QAM 03/02/20 07/02/20 03/01/20 metoprolol tartrate 100 mg PO BID #120 tab 03/02/20 07/02/20 Unknown pantoprazole 40 mg PO QAM 03/02/20 07/02/20 03/01/20 potassium chloride 10 meq PO TID 03/02/20 07/02/20 Unknown albuterol sulfate [Proventil HFA] 2 puffs INH Q6H PRN 03/24/20 07/02/20 Unknown levalbuterol HCl 1.25 mg INHALATION Q4H PRN 03/24/20 07/02/20 Unknown amlodipine 5 mg PO DAILY 05/15/20 07/02/20 Unknown Advair Diskus 1 puff INHALATION BID 07/02/20 07/02/20 Unknown nitroglycerin [Nitrostat] 0.4 mg SUBLINGUAL UD PRN 07/02/20 07/02/20 07/02/20 oxycodone 10 mg PO Q6 PRN 07/02/20 07/02/20 Unknown Active Medications Generic Name Dose Route Start Last Admin Trade Name Freq PRN Reason Stop Dose Admin Acetaminophen 650 mg 07/02/20 04:03 07/02/20 14:19 Acetaminophen 325 Mg Tab PO 08/01/20 04:02 650 mg Q4H PRN Administration Pain or Fever Amitriptyline HCl 50 mg 07/02/20 21:00 07/02/20 21:01 Amitriptyline Hcl 50 Mg Tab PO 08/01/20 20:59 50 mg HS JORGE Administration Amlodipine Besylate 5 mg 07/02/20 09:00 07/03/20 07:57 Amlodipine Besylate 5 Mg Tab PO 08/01/20 08:59 5 mg DAILY JORGE Administration Atorvastatin Calcium 40 mg 07/02/20 21:00 07/02/20 21:02 Atorvastatin 40 Mg Tab PO 08/01/20 20:59 40 mg HS JORGE Administration Cetirizine HCl 10 mg 07/02/20 21:00 07/02/20 21:09 Cetirizine Hcl 10 Mg Tablet PO 08/01/20 20:59 10 mg HS JORGE Administration Diltiazem HCl 120 mg 07/02/20 09:00 07/03/20 07:57 Diltiazem Hcl 120 Mg Capcr PO 08/01/20 08:59 120 mg QAM JORGE Administration Fentanyl 50 mcg 07/02/20 09:00 07/02/20 08:57 Fentanyl 50 Mcg/Hr Tdsy TD 07/16/20 08:59 50 mcg Q3D@0900 JORGE Administration Fluticasone/Vilanterol 1 puffs 07/02/20 09:00 07/03/20 07:56 Fluticasone/Vilanterol 200/25mcg 14 Puffs/Inhaler INH 08/01/20 08:59 1 puffs DAILY JORGE Administration Furosemide 80 mg 07/02/20 09:00 07/02/20 08:53 Furosemide 80 Mg Tab PO 08/01/20 08:59 80 mg [id number] JORGE Administration Gabapentin 800 mg 07/02/20 09:00 07/03/20 07:57 Gabapentin 800 Mg Tab PO 08/01/20 08:59 800 mg BID JORGE Administration Diltiazem HCl 125 mg/ Dextrose 125 mls @ 0 mls/hr 07/02/20 11:15 07/03/20 14:20 IV 08/01/20 11:14 0 mg/hr .Q0M JORGE 0 mls/hr Titration Protocol 0 MG/HR Furosemide 60 mg/ Syringe 6 mls @ 4 mls/min 07/02/20 17:00 07/03/20 07:59 IV 08/01/20 16:59 4 mls/min BID17 JORGE Administration Insulin Aspart 0 units 07/02/20 16:30 07/03/20 11:56 Insulin Aspart 100 Units/Ml 3 Ml Pen SC 08/01/20 16:29 13 units ACHS JORGE Administration Insulin Glargine 8 units 07/02/20 09:00 07/03/20 07:56 Insulin Glargine Solostar 100 Units/Ml 3 Ml Pen SC 08/01/20 08:59 8 units BID JORGE Administration Methocarbamol 750 mg 07/02/20 09:00 07/03/20 14:45 Methocarbamol 750 Mg Tablet PO 08/01/20 08:59 750 mg TID JORGE Administration Metoprolol Tartrate 100 mg 07/02/20 09:00 07/03/20 07:57 Metoprolol Tartrate 100 Mg Tab PO 08/01/20 08:59 100 mg BID JORGE Administration Metoprolol Tartrate 2.5 mg 07/02/20 04:03 07/02/20 10:26 Metoprolol Tartrate 1 Mg/Ml Vial IV 08/01/20 04:02 2.5 mg Q4 PRN Administration Tachycardia Miscellaneous 1 ea 07/02/20 08:59 07/02/20 08:58 Fentanyl Patch Remove & Waste N/A 08/01/20 08:58 1 ea Q3D JORGE Administration Miscellaneous 1 ea 07/02/20 08:00 07/03/20 07:59 Check Fentanyl Patch Placement N/A 08/01/20 07:59 1 ea QS JORGE Administration Miscellaneous 1 ea 07/03/20 08:59 07/03/20 07:59 Remove Nicoderm Patch N/A 08/02/20 08:58 1 ea DAILY@0859 JORGE Administration Multivitamins 1 tab 07/02/20 09:00 07/03/20 07:57 Multivitamin Tab PO 08/01/20 08:59 1 tab QAM JORGE Administration Nicotine 14 mg 07/02/20 04:03 07/03/20 07:58 Nicotine 14 Mg/24 Hr Patch TD 08/01/20 04:02 14 mg QAM JORGE Administration Ondansetron HCl 4 mg 07/02/20 04:03 07/02/20 10:26 Ondansetron Inj 2 Mg/Ml 2 Ml Vial IV 08/01/20 04:02 4 mg Q6H PRN Administration Nausea Oxycodone HCl 10 mg 07/02/20 04:03 07/03/20 03:21 Oxycodone Hcl Ir 5 Mg Tab (Immediate Release) PO 07/16/20 04:02 10 mg Q6 PRN Administration Pain Pantoprazole Sodium 40 mg 07/02/20 09:00 07/03/20 07:57 Pantoprazole 40 Mg Tab PO 08/01/20 08:59 40 mg QAM JORGE Administration Potassium Chloride 10 meq 07/02/20 09:00 07/03/20 07:58 Potassium Chloride 10 Meq Tabcr PO 08/01/20 08:59 10 meq TID JORGE Administration Trazodone HCl 200 mg 07/02/20 21:00 07/02/20 21:00 Trazodone Hcl 100 Mg Tab PO 08/01/20 20:59 200 mg HS JORGE Administration Umeclidinium [place] 1 puffs 07/02/20 09:00 07/03/20 07:56 Umeclidinium [place] 62.5mcg/Blister 7 Puffs/Inhaler INH 08/01/20 08:59 1 puffs QAM JORGE Administration Venlafaxine HCl 150 mg 07/02/20 09:00 07/03/20 07:57 Venlafaxine Hcl Xr 150 Mg Capxr PO 08/01/20 08:59 150 mg QAM JORGE Administration Venlafaxine HCl 75 mg 07/02/20 09:00 07/03/20 07:58 Venlafaxine Hcl Xr 75 Mg Capxr PO 08/01/20 08:59 75 mg QAM JORGE Administration Vitamin D 1,000 units 07/02/20 09:00 07/03/20 07:58 Cholecalciferol 1,000 Units 25 Mcg Tab PO 08/01/20 08:59 1,000 units QAM JORGE Administration Warfarin Sodium 5 mg 07/02/20 16:00 07/02/20 16:02 Warfarin Sod 5 Mg Tab PO 08/01/20 15:59 5 mg [id number]@1600 JORGE Administration Zolpidem Tartrate 5 mg 07/02/20 21:00 07/02/20 21:13 Zolpidem Tartrate 5 Mg Tab PO 08/01/20 20:59 5 mg HS JORGE Administration Past Medical History Medical History Acute renal failure Anemia remote hx blood transfusion (5+ years ago)= no definitive etiology Anxiety Asthma 3LPM via n/c mostly continuous (although patient states she does not wear this all the time) Atrial fibrillation a. fib/a. flutter s/p cardioversion (2016) Atrial fibrillation with RVR [place] esophagus Bipolar disorder Chronic back pain Chronic cor pulmonale Chronic kidney disease stage III Chronic obstructive pulmonary disease 3LPM via n/c mostly continuous (although patient states she does not wear this all the time) Chronic respiratory failure CVA (cerebral vascular accident) 2004 (per records; patient denies) Degeneration of cervical intervertebral disc Depression Diastolic CHF, chronic DM type 2 (diabetes mellitus, type 2) Elevated troponin Fibromyalgia Gastroparesis GERD (gastroesophageal reflux disease) History of Clostridium difficile infection History of DVT (deep vein thrombosis) left "hand" 2004- on AC HTN (hypertension) Hyperlipidemia Hyponatremia Hypothyroidism 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 Nocturnal hypoxemia Obesity Obstructive sleep apnea treated with BiPAP Osteoarthritis Post traumatic stress disorder Past Family History Family History Mother Family history of diabetes mellitus Sister Family history of diabetes mellitus Past Surgical History Surgical History H/O: hysterectomy History of adenoidectomy History of appendectomy LAPAROSCOPY History of cardiac cath 2004= no stents History of cataract surgery BILATERAL History of cholecystectomy LAPAROSCOPY History of colonoscopy History of esophagogastroduodenoscopy (EGD) History of herniorrhaphy UMBILICAL History of hysterectomy EMIGDIO WITH BSO History of mitral valve repair 2004 + resection fibroelastoma History of tonsillectomy Hx of appendectomy Hx of lumpectomy right breast BENIGN Hx of tubal ligation Hx of umbilical hernia repair S/P trigger finger release RIGHT/LEFT Social History Smoking Status: Current every day smoker tobacco type: cigarettes Smoking cigarettes per day: 10 Hx Alcohol Use: No Hx Substance Use: No substance use type: does not use Physical Exam Vital Signs Last Vital Signs Temp 36.9 C 07/03/20 12:00 Pulse 57 L 07/03/20 12:00 Resp 22 07/03/20 12:00 BP 131/54 L 07/03/20 12:00 Pulse Ox 97 07/03/20 12:00 Testing Laboratory Results 07/03/20 04:09 07/03/20 04:09 PT 24.6 Seconds (9.0-12.0) H 07/03/20 04:09 INR 2.4 (0.9-1.1) H 07/03/20 04:09 APTT 40.6 Seconds (21.0-31.0) H 07/02/20 01:26 Hemoglobin A1c 7.5 % (4.5-5.6) H 07/02/20 06:54 07/03/20 07/03/20 07/03/20 11:32 07:26 07:24 POC Glucose 214 H 310 H* 316 H*
[2020-07-03] MEDS ORDERED: WARFARIN SOD 7.5 MG TAB PO SCH (16:00)
[2020-07-03] MEDS: ATORVASTATIN 40 MG TAB PO SCH (20:40)
[2020-07-03] MEDS: traZODone HCL 100 MG TAB PO SCH (20:40)
[2020-07-03] MEDS: AMITRIPTYLINE HCL 50 MG TAB PO SCH (20:40)
[2020-07-03] MEDS: ZOLPIDEM TARTRATE 5 MG TAB PO SCH (20:40)
[2020-07-03] MEDS: CETIRIZINE HCL 10 MG TABLET PO SCH (20:41)
[2020-07-04] MEDS ORDERED: LIDOCAINE HCL 2% MPF (LOCAL) 5 ML VIAL INFIL ONE (06:49)
[2020-07-04] MEDS ORDERED: PROPOFOL IV EMULSION 10 MG/ML 20 ML VIAL IV ONE (06:49)
[2020-07-04] MEDS ORDERED: ePHEDrine sulfate 50 MG/ML AMP ONE (06:49)
[2020-07-04] MEDS ORDERED: PHENYLEPHRINE 100MCG/ML 5ML SYR ONE (06:49)
[2020-07-04 07:46] LABS: Prothrombin Time 29.4 Seconds (9.0-12.0)
[2020-07-04] MEDS: dilTIAZem HCL 125 MG in DEXTROSE 5% 100 ML IV SCH (07:48)
[2020-07-04] MEDS: CHECK fentaNYL PATCH PLACEMENT SCH ×3 (07:49→16:41)
[2020-07-04] MEDS: UMECLIDINIUM BROMIDE 62.5MCG/BLISTER 7 PUFFS/INHALER INH SCH (08:09)
[2020-07-04] MEDS: FLUTICASONE/VILANTEROL 200/25MCG 14 PUFFS/INHALER INH SCH (08:10)
[2020-07-04] MEDS: INSULIN ASPART 100 UNITS/ML 3 ML PEN SC SCH ×4 (08:10→21:32)
[2020-07-04] MEDS: METHOCARBAMOL 750 MG TABLET PO SCH ×3 (08:12→21:28)
[2020-07-04] MEDS: GABAPENTIN 800 MG TAB PO SCH ×2 (08:12→21:35)
[2020-07-04] MEDS: METOPROLOL TARTRATE 100 MG TAB PO SCH ×2 (08:12→21:31)
[2020-07-04] MEDS: MULTIVITAMIN TAB PO SCH (08:13)
[2020-07-04] MEDS: VENLAFAXINE HCL XR 150 MG CAPXR PO SCH (08:13)
[2020-07-04] MEDS: CHOLECALCIFEROL 1,000 UNITS 25 MCG TAB PO SCH (08:13)
[2020-07-04] MEDS: VENLAFAXINE HCL XR 75 MG CAPXR PO SCH (08:14)
[2020-07-04] MEDS: dilTIAZem HCL 120 MG CAPCR PO SCH (08:14)
[2020-07-04] MEDS: amLODIPine BESYLATE 5 MG TAB PO SCH (08:15)
[2020-07-04] MEDS: NICOTINE 14 MG/24 HR PATCH TD SCH (08:15)
[2020-07-04] MEDS: PANTOprazole 40 MG TAB PO SCH (08:15)
[2020-07-04] MEDS: INSULIN GLARGINE SOLOSTAR 100 UNITS/ML 3 ML PEN SC SCH ×2 (08:16→21:32)
--- NOTE | 2020-07-04 08:31 | Electrocardiogram Report ---
Test Reason : Blood Pressure : / mmHG Vent. Rate : 114 BPM Atrial Rate : 114 BPM P-R Int : 214 ms QRS Dur : 148 ms QT Int : 306 ms P-R-T Axes : 112 095 -43 degrees QTc Int : 421 ms Probable Atrial flutter with 2 to 1 block Right bundle branch block Abnormal ECG When compared with ECG of 03-JUL-2020 06:39, HR has increased by 34 bpm Otherwise no significant change Confirmed by Noé Hernandez ([id number]) on 07/04/2020 8:31:15 AM Referred By: REFERRED SELF Confirmed By:Noé Hernandez
[2020-07-04] MEDS ORDERED: ATROPINE SULFATE 0.1 MG/ML 10ML SYR IV ONE (08:34)
--- NOTE | 2020-07-04 08:56 | Cardioversion ---
Date of Service July 04, 2020 Electrical Cardioversion Rpt Electrical Cardioversion Report Indication: Atrial flutter with 2-1 conduction Complications: None Estimated blood loss: 0 cc Sedation: Conscious sedation provided by the anesthesia service with propofol. Please see separate report. Procedural summary: Patient brought to the [facility] holding area in a fasting state. INR greater than 2.0 confirmed for more than 4 weeks. Atrial flutter with 2-1 conduction confirmed on monitor. Defibrillator pads placed in an anterior and posterior position. When adequate sedation achieved, the defibrillator was synced to the QRS complex. A single 100 J shock delivered. Patient successfully converted from atrial flutter with 2-1 conduction to normal sinus rhythm. No complications. Patient tolerated procedure well. Conclusion: Successful external direct-current cardioversion from atrial flutter to sinus rhythm with 100 J.
--- NOTE | 2020-07-04 08:59 | Anesthesiology Progress Note ---
Date of Service July 04, 2020 Anesthesia Post Procedure Vital Signs Vital Signs: Temp Pulse Pulse Resp BP BP BP 07/04/20 08:50 72 18 106/66 07/04/20 07:06 36.5 C 119 H 19 132/78 07/04/20 03:18 36.7 C 106 H 20 131/84 07/03/20 23:32 36.6 C 94 H 20 103/59 L 07/03/20 22:00 36.7 C 112 H 112 H 18 130/90 07/03/20 16:00 112 H 18 141/64 H 07/03/20 15:48 84 07/03/20 12:00 36.9 C 57 L 22 131/54 L Pulse Ox 07/04/20 08:50 99 07/04/20 07:06 93 07/04/20 03:18 96 07/03/20 23:32 91 07/03/20 22:00 98 07/03/20 16:00 2 L 07/03/20 15:48 07/03/20 12:00 97 Pain Intensity Right Back: Pain Intensity: 5 Transfer of Care Handoff Completed per policy Notes Mental Status: alert / awake / arousable and participated in evaluation Nausea / Vomiting: adequately controlled Pain: adequately controlled Airway Patency, RR, SpO2: stable & adequate BP & HR: stable & adequate Hydration State: stable & adequate Anesthetic Complications: no major complications apparent and Pt Satisfied with anesthetic care
[2020-07-04] MEDS ORDERED: predniSONE 20 MG TAB PO SCH (09:00)
--- NOTE | 2020-07-04 09:01 | Cardiology Progress Note ---
Date of Service July 04, 2020 Assessment & Plan (1) Atrial fibrillation with rapid ventricular response: (2) Chest pain: (3) S/P MVR (mitral valve repair): (4) Acute on chronic diastolic (congestive) heart failure: (5) Acute exacerbation of chronic obstructive pulmonary disease: (6) Pulmonary HTN: Risk, benefits, and alternatives to direct-current cardioversion discussed. Patient agreeable to proceed. Intravenous Cardizem discontinued. Plan to continue oral metoprolol and Cardizem post cardioversion if successful. Restart oral diuretic therapy if renal function has returned to baseline. Taper corticosteroids as per internal medicine. Admission and Anticipated Discharge Date Admission Date: July 02, 2020 Subjective Patient seen exam at the bedside. Remains in atrial flutter with 2-1 conduction. IV Cardizem discontinued. INR therapeutic this morning. Dyspnea improved with addition of corticosteroids. Lasix placed on hold due to mildly elevated creatinine. Rapid COVID-19 screening test is negative. She offers no new concerns/complaints at this time. Review of Systems Review of Systems: All systems reviewed & are unremarkable except as noted in HPI & below Physical Exam Constitutional: + obese Respiratory: no respiratory distress, no labored breathing, no retractions and does not use accessory muscles Auscultation: + wheezes (Bilateral expiratory); no crackles and no rales Cardiovascular: Rate/Rhythm: regular rate and + tachycardic Heart Sounds: normal S1 and normal S2; no murmur Vessels: no JVD Extremities: no edema Gastrointestinal (Abdomen): Inspection/Auscultation: abdomen normal to inspection and normal bowel sounds; abdomen not distended Percussion/Palpation: abdomen soft; abdomen nontender, no guarding and abdomen not rigid Skin: no rashes, warm and dry Neurologic: deep tendon reflexes 2+ bilaterally and moves all extremities; no focal motor deficits Speech / Cognition: normal speech Motor/Sensory: no tremor Psychiatric: A+Ox3, euthymic affect Results & Data ([facility]) Vital Signs (Past 12 Hours) Vital Signs Temp Pulse Pulse Resp BP BP Pulse Ox 07/04/20 07:06 36.5 C 119 H 19 132/78 93 07/04/20 03:18 36.7 C 106 H 20 131/84 96 07/03/20 23:32 36.6 C 94 H 20 103/59 L 91 07/03/20 22:00 36.7 C 112 H 112 H 18 130/90 98 (1) Chest pain Chest pain type: precordial pain Qualified Code(s): R07.2 - Precordial pain
[2020-07-04 09:15] LABS: BUN Creatinine Ratio 21.8 (10-20); Calcium 9.8 mg/dl (8.5-10.1); Creatinine Clr Calc Pharmacy 38.4 ml/min; Est GFR (African American) 35.8; Est GFR (Non-African American) 30.9; Magnesium 2.3 mg/dl (1.8-2.4); Potassium 4.2 mmol/L (3.5-5.1)
--- NOTE | 2020-07-04 16:11 | Electrocardiogram Report ---
Test Reason : Blood Pressure : / mmHG Vent. Rate : 078 BPM Atrial Rate : 078 BPM P-R Int : 214 ms QRS Dur : 156 ms QT Int : 424 ms P-R-T Axes : 061 084 004 degrees QTc Int : 483 ms Sinus rhythm with 1st degree A-V block Right bundle branch block T wave abnormality, consider inferior ischemia Abnormal ECG When compared with ECG of 04-JUL-2020 06:17, Sinus rhythm has replaced Atrial fibrillation Confirmed by Chino Masterson ([id number]) on 07/04/2020 4:11:49 PM Referred By: REFERRED SELF Confirmed By:Chino Masterson
--- NOTE | 2020-07-04 16:35 | Hospitalist Progress Note ---
Date of Service July 04, 2020 Assessment & Plan (1) Atrial fibrillation with rapid ventricular response: Admitted with chest pain and shortness of breath Noted to have AElen shaffer with RVR at presentation Has been on Cardizem drip and getting oral beta-mana and Cardizem Appreciate cardiology input Echo of the heart showed: Bk shaffer with RVR, EF 65 to 70%, severe concentric LV hypertrophy with flattened septum consistent with RV pressure overload, annuloplasty ring in the mitral position, restricted posterior mitral valve leaflet excursion, no mitral valve stenosis but mild MR, significant TR is absent compared to the study dated 03/02/2020,septal flattening is new May need to have elective cardioversion to revert the rhythm Remains tachycardic with atrial flutter with variable block Has been getting Cardizem drip , oral Cardizem and oral beta-mana Status post cardioversion with reversion to sinus rhythm She has been feeling a lot better and will continue current medications (2) Chest pain: Troponins x3 sets remain negative Patient seems to be free of any pain (3) Pulmonary HTN: (4) Acute on chronic diastolic (congestive) heart failure: Complicating shortness of breath Has been getting intravenous Lasix Monitor PRP-creatinine is slightly better at 1.73 on 07/04/2020 Intravenous diuretics are still on hold We will check creatinine tomorrow and if it improves then we can start oral di uretic from tomorrow or at discharge (5) Acute exacerbation of chronic obstructive pulmonary disease: Has been wheezing a lot with increasing shortness of breath * Will continue inhalers and add a small dose of Solu-Medrol * Clinically a lot better today and will give oral prednisone from tomorrow to complete a 5 days course in total * Clinically a lot better today and will continue prednisone 40 mg daily for 5 days in total (6) Chronic respiratory failure with hypoxia, on home oxygen therapy: (7) Severe obstructive sleep apnea: Continue CPAP DVT prophylaxis Current Coumadin INR is therapeutic at 2.6 Likely discharge tomorrow We will get PT and OT evaluation Admission and Anticipated Discharge Date Admission Date: July 02, 2020 Subjective The patient was seen and examined in telemetry unit She has been free of any pain but does have some wheezing with deep inspiration He denies any palpitation and/or shortness of breath at rest 07/03/2020 The patient was seen and examined in telemetry unit She has been feeling a lot better and denies any palpitation and/or shortness of breath at rest She remains tachycardic with a flutter 07/04/2020 The patient was seen and examined in telemetry unit She is a status post cardioversion Has been feeling a lot better following cardioversion and denies any significant symptoms Her wheezing is much better too Review of Systems Review of Systems: All systems reviewed and are unremarkable except as noted below Respiratory: + cough and + wheezing Cardiovascular: no chest pain and no palpitations Physical Exam Physical Exam: Sitting at the edge of the bed without any acute symptoms Constitutional: well developed, well nourished and + obese; no acute distress and not ill appearing Eyes: PERRL, conjunctivae normal, anicteric sclerae ENMT: external ear and nose normal, oropharynx normal Neck: trachea midline, no thyromegaly Respiratory: normal respiratory effort; no respiratory distress Auscultation: + diminished lung sounds and + wheezes (Very minimal wheezing on examination) Cardiovascular: Rate/Rhythm: regular rate and regular rhythm Heart Sounds: + murmur (2/6 ejection systolic murmur over the precordium) Extremities: + edema (Trace edema bilaterally) Gastrointestinal (Abdomen): Inspection/Auscultation: abdomen normal to inspection and normal bowel sounds; abdomen not distended Percussion/Palpation: abdomen soft; abdomen nontender Musculoskeletal: No acute arthritis involving any joint Neurologic: moves all extremities; no focal motor deficits Psychiatric: A+Ox3, euthymic affect Lymphatic: no cervical or axillary lymphadenopathy Results & Data Results & Data ([facility]) Vital Signs (Past 12 Hours) Vital Signs Temp Pulse Pulse Pulse Resp BP BP 07/04/20 16:00 80 07/04/20 15:44 36.5 C 85 18 133/65 07/04/20 11:13 36.8 C 82 18 137/82 07/04/20 10:45 77 18 140/80 07/04/20 10:15 80 18 127/66 07/04/20 10:00 71 18 128/75 07/04/20 09:45 58 L 16 130/81 07/04/20 09:30 36.7 C 61 16 124/72 07/04/20 08:55 65 18 113/69 07/04/20 08:50 72 18 106/66 07/04/20 08:00 117 H 07/04/20 07:06 36.5 C 119 H 19 132/78 Pulse Ox 07/04/20 16:00 07/04/20 15:44 96 07/04/20 11:13 100 07/04/20 10:45 99 07/04/20 10:15 99 07/04/20 10:00 99 07/04/20 09:45 100 07/04/20 09:30 98 07/04/20 08:55 99 07/04/20 08:50 99 07/04/20 08:00 07/04/20 07:06 93 Laboratory Results BMP 07/04/20 07:23 Sodium 136 Potassium 4.2 Chloride 101 Carbon Dioxide 31 BUN 38 H Creatinine 1.73 H Glucose 177 H Calcium 9.8 Medications Administered Current Inpatient Medications Acetaminophen (Acetaminophen 325 Mg Tab) 650 mg PO Q4H PRN PRN Reason: Pain or Fever Stop: 08/01/20 04:02 Last Admin: 07/02/20 14:19 Dose: 650 mg Documented by: Albuterol (Albuterol Hfa 8 Gm Inhaler) 2 puffs INH Q6H PRN PRN Reason: Shortness Of Breath Or Wheezing Stop: 08/01/20 04:02 Alendronate Sodium (Alendronate Sodium 70 Mg Tab) 70 mg PO We@0630 [facility] Stop: 08/04/20 06:29 Amitriptyline HCl (Amitriptyline Hcl 50 Mg Tab) 50 mg PO HS [facility] Stop: 08/01/20 20:59 Last Admin: 07/03/20 20:40 Dose: 50 mg Documented by: Amlodipine Besylate (Amlodipine Besylate 5 Mg Tab) 5 mg PO DAILY JOR[facility] Stop: 08/01/20 08:59 Last Admin: 07/04/20 08:15 Dose: 5 mg Documented by: Atorvastatin Calcium (Atorvastatin 40 Mg Tab) 40 mg PO HS JORGE Stop: 08/01/20 20:59 Last Admin: 07/03/20 20:40 Dose: 40 mg Documented by: Cetirizine HCl (Cetirizine Hcl 10 Mg Tablet) 10 mg PO HS [facility] Stop: 08/01/20 20:59 Last Admin: 07/03/20 20:41 Dose: 10 mg Documented by: Dextrose (Dextrose 50% 50 Ml Syringe) 25 - 50 ml IV UD PRN; Protocol PRN Reason: Hypoglycemia Protocol Stop: 08/01/20 04:29 Diclofenac Sodium (Diclofenac Sod 1% Gel 100 Gm Tube) 2 gm EXT QID PRN PRN Reason: Pain Stop: 08/01/20 04:02 Diltiazem HCl (Diltiazem Hcl 120 Mg Capcr) 120 mg PO QAM [facility] Stop: 08/01/20 08:59 Last Admin: 07/04/20 08:14 Dose: 120 mg Documented by: Docusate Sodium (Docusate Sodium 100 Mg Cap) 100 mg PO DAILY PRN PRN Reason: Constipation Stop: 08/01/20 04:15 Fentanyl (Fentanyl 50 Mcg/Hr Tdsy) 50 mcg TD Q3D@0900 [facility] Stop: 07/16/20 08:59 Last Admin: 07/02/20 08:57 Dose: 50 mcg Documented by: Fluticasone/Vilanterol (Fluticasone/Vilanterol 200/25mcg 14 Puffs/Inhaler) 1 puffs INH DAILY [facility] Stop: 08/01/20 08:59 Last Admin: 07/04/20 08:10 Dose: 1 puffs Documented by: Furosemide (Furosemide 80 Mg Tab) 80 mg PO BID17 [facility] Stop: 08/01/20 08:59 Last Admin: 07/02/20 08:53 Dose: 80 mg Documented by: Gabapentin (Gabapentin 800 Mg Tab) 800 mg PO BID [facility] Stop: 08/01/20 08:59 Last Admin: 07/04/20 08:12 Dose: 800 mg Documented by: Glucagon (Glucagon For Inj 1 Mg Vial) 1 mg SQ UD PRN; Protocol PRN Reason: Hypoglycemia Protocol Stop: 08/01/20 04:29 Glucose (Glucose 40% Gel 15 Gm Tube) 15 - 30 gm PO UD PRN; Protocol PRN Reason: Hypoglycemia Protocol Stop: 08/01/20 04:29 Glucose (Glucose 10 Tabs/Tube) 4 - 8 tabs PO UD PRN; Protocol PRN Reason: Hypoglycemia Protocol Stop: 08/01/20 04:29 Diltiazem HCl 125 mg/ Dextrose 125 mls @ 0 mls/hr IV .Q0M [facility]; Protocol Stop: 08/01/20 11:14 Last Admin: 07/04/20 07:48 Dose: Not Given Documented by: Furosemide 60 mg/ Syringe 6 mls @ 4 mls/min IV BID17 [facility] Stop: 08/01/20 16:59 Last Admin: 07/03/20 07:59 Dose: 4 mls/min Documented by: Insulin Aspart (Insulin Aspart 100 Units/Ml 3 Ml Pen) 0 units SC ACHS [facility] Stop: 08/01/20 16:29 Last Admin: 07/04/20 12:01 Dose: 12 units Documented by: Insulin Glargine (Insulin Glargine Solostar 100 Units/Ml 3 Ml Pen) 8 units SC BID [facility] Stop: 08/01/20 08:59 Last Admin: 07/04/20 08:16 Dose: 8 units Documented by: Levalbuterol HCl (Levalbuterol Hcl 1.25 Mg/3 Ml Neb) 1.25 mg INH Q4H PRN PRN Reason: Wheezing Stop: 08/01/20 04:02 Methocarbamol (Methocarbamol 750 Mg Tablet) 750 mg PO TID [facility] Stop: 08/01/20 08:59 Last Admin: 07/04/20 14:59 Dose: 750 mg Documented by: Metoprolol Tartrate (Metoprolol Tartrate 100 Mg Tab) 100 mg PO BID [facility] Stop: 08/01/20 08:59 Last Admin: 07/04/20 08:12 Dose: 100 mg Documented by: Metoprolol Tartrate (Metoprolol Tartrate 1 Mg/Ml Vial) 2.5 mg IV Q4 PRN PRN Reason: Tachycardia Stop: 08/01/20 04:02 Last Admin: 07/02/20 10:26 Dose: 2.5 mg Documented by: Miscellaneous (Fentanyl Patch Remove & Waste) 1 ea N/A Q3D [facility] Stop: 08/01/20 08:58 Last Admin: 07/02/20 08:58 Dose: 1 ea Documented by: Miscellaneous (Check Fentanyl Patch Placement) 1 ea N/A QS [facility] Stop: 08/01/20 07:59 Last Admin: 07/04/20 07:49 Dose: 1 ea Documented by: Miscellaneous (Remove Nicoderm Patch) 1 ea N/A DAILY@0859 [facility] Stop: 08/02/20 08:58 Last Admin: 07/04/20 08:10 Dose: 1 ea Documented by: Miscellaneous (Carbohydrates For Hypoglycemia ) 15 - 30 gm PO UD PRN PRN Reason: Hypoglycemia Treatment Stop: 08/01/20 04:29 Multivitamins (Multivitamin Tab) 1 tab PO QAM [facility] Stop: 08/01/20 08:59 Last Admin: 07/04/20 08:13 Dose: 1 tab Documented by: Nicotine (Nicotine 14 Mg/24 Hr Patch) 14 mg TD QAM [facility] Stop: 08/01/20 04:02 Last Admin: 07/04/20 08:15 Dose: 14 mg Documented by: Nitroglycerin (Nitroglycerin Sl 0.4 Mg/Tab Tab) 0.4 mg SL UD PRN PRN Reason: Chest Pain Stop: 08/01/20 04:02 Ondansetron HCl (Ondansetron Inj 2 Mg/Ml 2 Ml Vial) 4 mg IV Q6H PRN PRN Reason: Nausea Stop: 08/01/20 04:02 Last Admin: 07/02/20 10:26 Dose: 4 mg Documented by: Oxycodone HCl (Oxycodone Hcl Ir 5 Mg Tab (Immediate Release)) 10 mg PO Q6 PRN PRN Reason: Pain Stop: 07/16/20 04:02 Last Admin: 07/03/20 03:21 Dose: 10 mg Documented by: Pantoprazole Sodium (Pantoprazole 40 Mg Tab) 40 mg PO QAM [facility] Stop: 08/01/20 08:59 Last Admin: 07/04/20 08:15 Dose: 40 mg Documented by: Potassium Chloride (Potassium Chloride 10 Meq Tabcr) 10 meq PO TID [facility] Stop: 08/01/20 08:59 Last Admin: 07/03/20 07:58 Dose: 10 meq Documented by: Prednisone (Prednisone 20 Mg Tab) 20 mg PO DAILY JOR[facility] Stop: 08/03/20 08:59 Last Admin: 07/04/20 08:11 Dose: 20 mg Documented by: Trazodone HCl (Trazodone Hcl 100 Mg Tab) 200 mg PO HS [facility] Stop: 08/01/20 20:59 Last Admin: 07/03/20 20:40 Dose: 200 mg Documented by: Umeclidinium Bone Gap (Umeclidinium Bone Gap 62.5mcg/Blister 7 Puffs/Inhaler) 1 puffs INH QAM [facility] Stop: 08/01/20 08:59 Last Admin: 07/04/20 08:09 Dose: 1 puffs Documented by: Venlafaxine HCl (Venlafaxine Hcl Xr 150 Mg Capxr) [facility] [place]: 08/01/20 08:59 Last Admin: 07/04/20 08:13 Dose: 150 mg Documented by: Venlafaxine HCl (Venlafaxine Hcl Xr 75 Mg Capxr) [facility] [place] 08/01/20 08:59 Last Admin: 07/04/20 08:14 Dose: 75 mg Documented by: Vitamin D (Cholecalciferol 1,000 Units 25 Mcg Tab) 1,000 units PO [facility] Stop: 08/01/20 08:59 Last Admin: 07/04/20 08:13 Dose: 1,000 units Documented by: Warfarin Sodium (Warfarin Sod 7.5 Mg Tab) 7.5 mg PO MoFr@1600 [facility] Stop: 08/02/20 15:59 Last Admin: 07/03/20 16:10 Dose: 7.5 mg Documented by: Warfarin Sodium (Warfarin Sod 5 Mg Tab) 5 mg PO SuTuWeThSa@1600 [facility] Stop: 08/01/20 15:59 Last Admin: 07/02/20 16:02 Dose: 5 mg Documented by: Zolpidem Tartrate (Zolpidem Tartrate 5 Mg Tab) 5 mg PO HS [facility] Stop: 08/01/20 20:59 Last Admin: 07/03/20 20:40 Dose: 5 mg Documented by: (1) Chest pain Chest pain type: precordial pain Qualified Code(s): R07.2 - Precordial pain
[2020-07-04] MEDS: WARFARIN SOD 5 MG TAB PO SCH (16:39)
[2020-07-04] MEDS: ATORVASTATIN 40 MG TAB PO SCH (21:28)
[2020-07-04] MEDS: CETIRIZINE HCL 10 MG TABLET PO SCH (21:29)
[2020-07-04] MEDS: AMITRIPTYLINE HCL 50 MG TAB PO SCH (21:29)
[2020-07-04] MEDS: predniSONE 20 MG TAB PO SCH (21:29)
[2020-07-04] MEDS: traZODone HCL 100 MG TAB PO SCH (21:29)
[2020-07-04] MEDS: ZOLPIDEM TARTRATE 5 MG TAB PO SCH (21:37)
[2020-07-04] MEDS: oxyCODONE HCL IR 5 MG TAB (IMMEDIATE RELEASE) PO PRN (22:54)
[2020-07-04] MEDS: ONDANSETRON INJ 2 MG/ML 2 ML VIAL IV PRN (22:55)
[2020-07-05] MEDS: CHECK fentaNYL PATCH PLACEMENT SCH ×2 (01:36→08:37)
[2020-07-05] MEDS ORDERED: ALENDRONATE SODIUM 70 MG TAB PO SCH (06:30)
[2020-07-05 07:55] LABS: INR 3.4 (0.9-1.1); Prothrombin Time 33.8 Seconds (9.0-12.0)
[2020-07-05 08:11] LABS: Calcium 9.7 mg/dl (8.5-10.1); Est GFR (African American) 36.3; Est GFR (Non-African American) 31.3; Potassium 4.6 mmol/L (3.5-5.1)
[2020-07-05] MEDS: INSULIN GLARGINE SOLOSTAR 100 UNITS/ML 3 ML PEN SC SCH (08:33)
[2020-07-05] MEDS: INSULIN ASPART 100 UNITS/ML 3 ML PEN SC SCH ×2 (08:34→11:56)
[2020-07-05] MEDS: fentaNYL 50 MCG/HR TDSY TD SCH (08:40)
[2020-07-05] MEDS: amLODIPine BESYLATE 5 MG TAB PO SCH (08:41)
[2020-07-05] MEDS: NICOTINE 14 MG/24 HR PATCH TD SCH (08:41)
[2020-07-05] MEDS: METHOCARBAMOL 750 MG TABLET PO SCH (08:41)
[2020-07-05] MEDS: GABAPENTIN 800 MG TAB PO SCH (08:41)
[2020-07-05] MEDS: PANTOprazole 40 MG TAB PO SCH (08:41)
[2020-07-05] MEDS: VENLAFAXINE HCL XR 75 MG CAPXR PO SCH (08:41)
[2020-07-05] MEDS: MULTIVITAMIN TAB PO SCH (08:41)
[2020-07-05] MEDS: VENLAFAXINE HCL XR 150 MG CAPXR PO SCH (08:41)
[2020-07-05] MEDS: dilTIAZem HCL 120 MG CAPCR PO SCH (08:41)
[2020-07-05] MEDS: CHOLECALCIFEROL 1,000 UNITS 25 MCG TAB PO SCH (08:41)
[2020-07-05] MEDS: predniSONE 20 MG TAB PO SCH (08:42)
[2020-07-05] MEDS: FLUTICASONE/VILANTEROL 200/25MCG 14 PUFFS/INHALER INH SCH (08:42)
[2020-07-05] MEDS: UMECLIDINIUM BROMIDE 62.5MCG/BLISTER 7 PUFFS/INHALER INH SCH (08:43)
[2020-07-05] MEDS: METOPROLOL TARTRATE 100 MG TAB PO SCH (08:45)
--- NOTE | 2020-07-05 11:13 | Cardiology Progress Note ---
Date of Service July 05, 2020 Assessment & Plan (1) Chronic respiratory failure with hypoxia, on home oxygen therapy: (2) Acute exacerbation of chronic obstructive pulmonary disease: (3) Atrial flutter: (4) Diastolic CHF, chronic: (5) S/P MVR (mitral valve repair): (6) Productive cough: OK for discharge from a cardiac standpoint Cardiology follow-up in 3-4 weeks at [facility] Admission and Anticipated Discharge Date Admission Date: July 02, 2020 Supervising Physician Co-Signing Physician Notes Patient was seen and personally examined. Telemetry reviewed. Patient remains in sinus rhythm after synchronized electrical cardioversion and stable for discharge to home today with plan follow-up as above Subjective Patient seen and examined. Chart, medications, and telemetry reviewed. Patient status post successful external direct-current cardioversion from atrial flutter to sinus rhythm with 100 J biphasic shock on July 12, 2020, without complication/clinical sequela. Feels well. Anxious for discharge. She is notes significant improvement in cough and chest congestion. Dyspnea has returned back to baseline. No chest pain. No palpitations. No dizziness or lightheadedness. No near syncope or syncope. No excessive bruising or bleeding. No peripheral edema. Continuous telemetry monitoring following cardioversion revealed sinus rhythm with rare atrial and ventricular ectopy. Rates typically in the 60s and 70s. Review of Systems Review of Systems: All systems reviewed & are unremarkable except as noted in HPI & below Physical Exam Physical Exam: General: A&Ox3. NAD. HEENT: Normocephalic. Atraumatic. PER. Conjunctiva pink, sclera clear. Neck: No carotid bruits. No JVD. Heart: RRR. Soft systolic murmur at the lLSB. Lungs: Decreased. Diminished. Scattered rhonchi. Abdomen: +BS. Soft. Nontender. No masses or organomegaly. Extremities: No clubbing, cyanosis, or edema. Limited neurological examination is without focal deficits. Pulses: Posterior tibial=1/4. Results & Data ([facility]) Vital Signs (Past 12 Hours) Vital Signs Temp Pulse Pulse Resp BP BP Pulse Ox 07/05/20 08:03 36.7 C 61 19 118/55 L 99 07/05/20 03:56 36.5 C 60 16 143/84 H 99 07/05/20 00:00 78 07/04/20 23:58 36.6 C 57 L 18 136/78 97 Laboratory Results Laboratory Results - last 24 hr 07/04/20 07/04/20 07/04/20 11:42 16:35 20:32 PT INR Sodium Potassium Chloride Carbon Dioxide Anion Gap BUN Creatinine Est Cr Clr Drug Dosing Est GFR ( Amer) Est GFR (Non-Af Amer) BUN/Creatinine Ratio Glucose POC Glucose 208 H 233 H 255 H Calcium 07/05/20 07/05/20 07/05/20 07:18 07:18 07:22 PT 33.8 H INR 3.4 H Sodium 138 Potassium 4.6 Chloride 104 Carbon Dioxide 33 H Anion Gap 1.0 L BUN 41 H Creatinine 1.71 H Est Cr Clr Drug Dosing 39.0 Est GFR ( Amer) 36.3 Est GFR (Non-Af Amer) 31.3 BUN/Creatinine Ratio 24.0 H Glucose 205 H POC Glucose 195 H Calcium 9.7
--- NOTE | 2020-07-05 13:06 | Hospitalist Progress Note ---
Date of Service July 05, 2020 Assessment & Plan (1) Atrial fibrillation with rapid ventricular response: Admitted with chest pain and shortness of breath Noted to have A. edmund with RVR at presentation Has been on Cardizem drip and getting oral beta-mana and Cardizem Appreciate cardiology input Echo of the heart showed: A. edmund with RVR, EF 65 to 70%, severe concentric LV hypertrophy with flattened septum consistent with RV pressure overload, annuloplasty ring in the mitral position, restricted posterior mitral valve leaflet excursion, no mitral valve stenosis but mild MR, significant TR is absent compared to the study dated 03/02/2020,septal flattening is new May need to have elective cardioversion to revert the rhythm Remains tachycardic with atrial flutter with variable block Has been getting Cardizem drip , oral Cardizem and oral beta-mana Status post successful cardioversion to sinus rhythm Continue coumadin daily (INR 3.4 today) Clinically improved significantly Ok from cardiology standpoint to discharge home Follow up with cardiology in 3 to 4 weeks Follow up with the coumadin clinic (2) Chest pain: Troponins x3 sets remain negative EKG showed no acute ischemic changes Currently asymptomatic (3) Pulmonary HTN: (4) Acute on chronic diastolic (congestive) heart failure: Complicating shortness of breath Has been getting intravenous Lasix Monitor PRP-creatinine is slightly better at 1.7 on 07/05/2020 Intravenous diuretics are still on hold Will resume lasix on discharge Check BMP within 3 to 5 days (5) Acute exacerbation of chronic obstructive pulmonary disease: Has been wheezing a lot with increasing shortness of breath continue inhalers and home oxygen supplement on discharge Will continue prednisone to complete 5 days course (6) Chronic respiratory failure with hypoxia, on home oxygen therapy: (7) Severe obstructive sleep apnea: Continue CPAP DVT prophylaxis Current Coumadin INR with INR 3.4 Disposition Will discharge home today Follow up with the coag clinic Follow up with K[facility] at home Check BMP and PT/INR within 3 to 5 days Admission and Anticipated Discharge Date Admission Date: July 02, 2020 Subjective Pt was seen and examined Sitting in chair with no distress Pt said that she feels much better She said that she is not having any chest pain She said that she is back o her baseline Denies any chest pain, palpitation, dizziness and SOB Physical Exam Physical Exam: General- No acute distress Head- atraumatic Eyes- PERRL, EOMI, ENT- oropharynx clear Neck- supple, no JVD Lungs- clear to auscultation, diminished breath sound Heart- regular rhythm; +systolic murmur Abdomen- normal bowel sounds, soft, nontender Extremities- no calf tenderness, +trace edema Neuro- alert, oriented x 3; PERRL, EOMI; no facial palsy; no dysarthria Skin- warm & dry Results & Data Results & Data ([facility]) Vital Signs (Past 12 Hours) Vital Signs Temp Pulse Pulse Resp BP BP Pulse Ox 07/05/20 11:59 36.6 C 57 L 19 150/74 H 99 07/05/20 08:03 36.7 C 61 19 118/55 L 99 07/05/20 03:56 36.5 C 60 16 143/84 H 99 (1) Chest pain Chest pain type: precordial pain Qualified Code(s): R07.2 - Precordial pain
--- NOTE | 2020-07-07 09:49 | Discharge Summary ---
Date of Service July 05, 2020 Admission HPI Per Admitting Provider CHIEF COMPLAINT: Chest pain. HISTORY OF PRESENT ILLNESS: This is a 64-year-old female with past medical history significant for hyperlipidemia, hypothyroidism, type 2 diabetes, chronic respiratory failure with hypoxia on 3 liters oxygen all the time, obstructive sleep apnea on CPAP at bedtime, COPD, history of cor pulmonale, paroxysmal atrial fibrillation, venous thrombosis, essential hypertension, venous stasis, chronic kidney disease stage III, Lynn's esophagus, cervical disk displacement, generalized osteoarthrosis, lumbar degenerative disk disease, senile osteoporosis, anemia, tobacco disorder, status post mitral valve repair, depression, PTSD, presents with chest pain. The patient lives alone. At home, she ambulates with a walker, but outside she is on a wheelchair. Family lives close by .At quarter to 12 in the nighttime, she noticed chest pain in the middle of the chest radiating to back, severe in nature with some sweating and she took 3 nitro that did not help and EMS was called and EMS has found her to be in rapid AFib. She was given 15 mg of IV Cardizem by the EMS with improvement of chest pain and heart rate. In the ER, she was given 10 of Cardizem, currently the heart rate is in the 90s, resting comfortably. She states her chest pain is all gone now. Denies any cough, no fever, no chills. She had headache, but right now she has no headache, no blurred vision, no earache, no runny nose, no sore throat. Appetite is okay. No dysphagia, no shortness of breath, no abdominal pain. Normal bowel and bladder movements. There is no blood in stool or black stools. No swelling in the legs. Admission Exam Per Admitting Provider GENERAL: The patient is obese, not in acute distress. VITAL SIGNS: Temperature 37, pulse 80, respiratory rate currently 103, blood pressure 110/68, oxygen 98% on 3 liters. HEENT: Pupils equal, round, reactive to light. Oral mucosa moist. NECK: No JVD, no neck masses. CARDIOVASCULAR: S1, S2 heard, regular rate and rhythm, no murmur, no gallop. RESPIRATORY SYSTEM: Normal AP diameter. No accessory muscle use. No wheezing, no crackles. ABDOMEN: Soft, bowel sounds present, nontender. No distention. CENTRAL NERVOUS SYSTEM: Cranial nerves II-XII grossly intact, nonfocal. EXTREMITIES: No edema, no erythema seen. No chronic skin changes seen. Principal Diagnosis Atrial fibrillation with rapid ventricular response Chest pain Pulmonary HTN: Acute on chronic diastolic (congestive) heart failure: Acute exacerbation of chronic obstructive pulmonary disease: Chronic respiratory failure with hypoxia, on home oxygen therapy Severe obstructive sleep apnea: Discharge Exam General- No acute distress Head- atraumatic Eyes- PERRL, EOMI, ENT- oropharynx clear Neck- supple, no JVD Lungs- clear to auscultation, diminished breath sound Heart- regular rhythm; +systolic murmur Abdomen- normal bowel sounds, soft, nontender Extremities- no calf tenderness, +trace edema Neuro- alert, oriented x 3; PERRL, EOMI; no facial palsy; no dysarthria Skin- warm & dry Discharge Data Allergies Allergy/AdvReac Type Severity Reaction Status Date / Time bee venom protein (honey bee) Allergy Severe SWELLING Verified 07/02/20 01:55 lisinopril Allergy Intermediate FACE Verified 07/02/20 01:55 SWELLING potato Allergy Intermediate BBQ chips Verified 07/02/20 01:55 - facial swelling metronidazole Allergy Mild FACE Verified 07/02/20 01:55 SWELLING strawberry Allergy Mild HIVES Verified 07/02/20 01:55 alprazolam Allergy Unknown RED FACE, Verified 07/02/20 01:55 FACE SWELLING lactose AdvReac Intermediate VOMTING Verified 07/02/20 01:55 DIARRHEA ABDOMINAL PAIN-LACTOSE INTOLERANCE prednisone AdvReac Mild AGGRESSIVE Verified 07/02/20 01:55 BEHAVIOR colesevelam AdvReac Unknown unknown Verified 07/02/20 01:55 lithium AdvReac Unknown jitters Verified 07/02/20 01:55 Consultations 07/02/20 02:28 ED Decision to Admit Stat 07/02/20 04:03 Consult Case Management - Discharge Planning Routine 07/02/20 08:00 Consult Cardiology Routine 07/03/20 12:45 Consult Anesthesiology Routine Procedures Performed Operation Date: 07/04/20 07:15 Actual Procedures p Cardioversion Joann Quinonez DO Ordered Studies XR chest 1V portable CLINICAL HISTORY: cough COMPARISON STUDY: 07/02/2020 FINDINGS: The heart remains enlarged. There are postsurgical changes of a valvular replacement. There is persistent diffuse elevation of interstitium, consistent with a pulmonary edema type pattern. An interstitial infectious/inflammatory process could appear similar.[ IMPRESSION: No change in the diffusely elevated interstitium. This could represent interstitial pulmonary edema, or an interstitial infec tious/inflammatory process. ACT 112: Negative or not required by law. Electronically signed by: Cesar Lopez M.D. 07/03/2020 9:54 AM Dictated: 07/03/20952 Transcribed: 07/03/20952 XR chest 1V portable CLINICAL HISTORY: Atypical chest pain COMPARISON STUDY: 05/15/2020 FINDINGS: The heart remains enlarged. There is a valvular prosthesis. There is a stable right lateral lung herniation. There is diffuse elevation of interstitium consistent with interstitial pulmonary edema. This is slightly progressive. An interstitial inflammatory process could appear similar.[ IMPRESSION: 1. Persistent diffuse elevation of interstitium. This could represent interstitial pulmonary edema, or interstitial infectious/inflammatory process. 2. Stable right lateral lung herniation. ACT 112: Negative or not required by law. Electronically signed by: Cesar Lopez M.D. 07/02/2020 8:06 AM Dictated: 07/02/20803 Transcribed: 07/02/20803 Hospital Course (1) Atrial fibrillation with rapid ventricular response: Admitted with chest pain and shortness of breath Noted to have A. fib with RVR at presentation Has been on Cardizem drip and getting oral beta-mana and Cardizem Appreciate cardiology input Echo of the heart showed: A. fib with RVR, EF 65 to 70%, severe concentric LV hypertrophy with flattened septum consistent with RV pressure overload, annuloplasty ring in the mitral position, restricted posterior mitral valve leaflet excursion, no mitral valve stenosis but mild MR, significant TR is abs ent compared to the study dated 03/02/2020,septal flattening is new May need to have elective cardioversion to revert the rhythm Remains tachycardic with atrial flutter with variable block Has been getting Cardizem drip , oral Cardizem and oral beta-mana Status post successful cardioversion to sinus rhythm Continue coumadin daily (INR 3.4 today) Clinically improved significantly Ok from cardiology standpoint to discharge home Follow up with cardiology in 3 to 4 weeks Follow up with the coumadin clinic (2) Chest pain: Troponins x3 sets remain negative EKG showed no acute ischemic changes Currently asymptomatic (3) Pulmonary HTN: (4) Acute on chronic diastolic (congestive) heart failure: Complicating shortness of breath Has been getting intravenous Lasix Monitor PRP-creatinine is slightly better at 1.7 on 07/05/2020 Intravenous diuretics are still on hold Will resume lasix on discharge Check BMP within 3 to 5 days (5) Acute exacerbation of chronic obstructive pulmonary disease: Has been wheezing a lot with increasing shortness of breath continue inhalers and home oxygen supplement on discharge Will continue prednisone to complete 5 days course (6) Chronic respiratory failure with hypoxia, on home oxygen therapy: (7) Severe obstructive sleep apnea: Continue CPAP DVT prophylaxis Current Coumadin INR with INR 3.4 Disposition Will discharge home today Follow up with the coag clinic Follow up with [facility] at home Check BMP and PT/INR within 3 to 5 days Total Time Total Time Spent Total Time Spent (In Minutes): 35 minutes Total Time Includes: Examination of the Patient, Discharge Planning, Medication Reconciliation, Communication With Other Providers and Other Discharge Plan Discharge Items Patient Disposition: Home - Home Health Services Reason For Visit: CHEST PAIN Discharge Diagnosis: Atrial fibrillation with rapid ventricular response Chest pain Pulmonary HTN: Acute on chronic diastolic (congestive) heart failure: Acute exacerbation of chronic obstructive pulmonary disease: Chronic respiratory failure with hypoxia, on home oxygen therapy Severe obstructive sleep apnea: Condition on Discharge: Fair Activity: Resume your previous activity Non-emergency contact: Primary Care Provider Call non-emergency contact if: you have any medication questions Follow-up/Referrals: Manoj Goins DO [Primary Care Provider] - (Date & Time 07/10/2020 3:00 PM Provider Manoj Goins DO Department General Internal Medicine [facility] will see you on Saturday 07/07 at 1 PM. ) Diet: Carb Consistent or DM2, Heart Healthy and Vegetarian (Lacto-Ovo) Addtl Attending Provider Instructions: Follow up with your primary care provider within 1 week Follow up with cardiology in 3 to 4 weeks Follow up with the coumadin clinic to monitor your PT/INR Check BMP in 3 to 5 days to monitor your PT/INR Fall precaution Pending Studies at Discharge: No Stand-Alone Forms: My [employer], Smoking Cessation Medications and DC Order Prescriptions: New prednisone 20 mg tablet 20 mg PO DAILY 3 Days Qty: 3 RF: 0 Continued amitriptyline 50 mg Tablet 50 mg PO HS RF: 0 gabapentin 800 mg Tablet 800 mg PO BID RF: 0 diclofenac sodium 1 % Gel 2 g TOPICAL QID PRN (Reason: Pain) RF: 0 alendronate 70 mg tablet 70 mg PO WK RF: 0 warfarin 5 mg tablet 7.5 mg PO 2XWK RF: 0 diltiazem HCl 120 mg capsule,extended release 24hr 120 mg PO QAM RF: 0 potassium chloride 10 mEq tablet extended release 10 meq PO TID RF: 0 pantoprazole 40 mg tablet,delayed release (DR/EC) 40 mg PO QAM RF: 0 Lantus U-100 Insulin 100 unit/mL solution 16 unit SUBCUT BID RF: 0 metoprolol tartrate 50 mg Tablet 100 mg PO BID Qty: 120 RF: 2 amlodipine 5 mg tablet 5 mg PO DAILY RF: 0 oxycodone 10 mg tablet 10 mg PO Q6 PRN (Reason: Pain) RF: 0 nitroglycerin [Nitrostat] 0.4 mg tablet, sublingual 0.4 mg sublingual UD PRN (Reason: Chest Pain) RF: 0 Advair Diskus 250 mcg 1 puff inhalation BID RF: 0 multivitamin Tablet 1 tab PO QAM RF: 0 furosemide 40 mg Tablet 80 mg PO BID RF: 0 atorvastatin 40 mg Tablet 40 mg PO HS RF: 0 fentanyl 50 mcg/hr Patch 72 Hour 50 mcg TRANSDERMAL [id number] RF: 0 cetirizine 10 mg Tablet 10 mg PO HS RF: 0 venlafaxine 150 mg Capsule,Extended Release 24hr 150 mg PO QAM RF: 0 ondansetron 8 mg Tablet,Disintegrating 8 mg PO BID RF: 0 methocarbamol 750 mg Tablet 750 mg PO TID RF: 0 warfarin 5 mg Tablet 5 mg PO 5XWK RF: 0 epinephrine [EpiPen] 0.3 mg/0.3 mL Auto-Injector 0.3 mg IM DIRECTED PRN (Reason: Allergic Reaction) RF: 0 docusate sodium 100 mg Tablet 100 mg PO DAILY PRN (Reason: Constipation) RF: 0 Spiriva with HandiHaler 18 mcg Capsule, W/Inhalation Device 1 cap INHALATION QAM RF: 0 cholecalciferol (vitamin D3) [Vitamin D3] 1,000 unit Tablet 1,000 unit PO QAM RF: 0 venlafaxine 75 mg Capsule,Extended Release 24hr 75 mg PO QAM RF: 0 trazodone 100 mg Tablet 200 mg PO HS RF: 0 zolpidem 5 mg Tablet 5 mg PO HS RF: 0 levalbuterol HCl 1.25 mg/3 mL solution for nebulization 1.25 mg INHALATION Q4H PRN (Reason: Wheezing) RF: 0 albuterol sulfate [Proventil HFA] 90 mcg/actuation HFA aerosol inhaler 2 puffs INH Q6H PRN (Reason: Shortness Of Breath Or Wheezing) RF: 0 Discharge Orders: Discharge Order (Routine); Ordered 07/05/20 Ordered By: Elise Hollins/Other Patient Handouts: Managing Type 2 Diabetes, Managing Diabetes: The A1C Test Admission Data Admit Date/Time: 07/02/20 03:16 Attending Provider: Elise Guillaume Admit Provider: Ronak Nguyen Primary Care Provider: Manoj Goins Other Providers: Mikey Jaquez ; Chico Underwood ; Mc House ; Sree Quinonez ; Apollo Figueroa ; Javan Maravilla ; Ninoska Zamora ; Kenia Guzman ; Campos Good ; Lizeth Martin H. ; Ronak Nguyen ; [facility] ; Tiff Hardy ; Sofi Yates ; Idalmis Jarquin ; Magda Ellington ; Evelyn Stover ; Deysi Blair ; Xavier Bergeron ; Russell Corado ; Apollo Jacobo ; Tato Schulz ; Guadalupe Schulz ; Austin Muñoz ; Meghann Malhotra ; Zachary Oswald ; Hipolito Cheatham ; Eric Cardozo ; Teto Duarte ; Tamara Tran ; Javan Lane ; Jessica Norris ; Codie Lane ; Reyes Rebolledo ; Felicitas Delaney ; Jun Douglas ; Ninoska Thompson ; Judi Troncoso ; Felicitas Gunderson ; Harleen Balbuena ; Mikey Koehler ; Joanne Dozier ; Sherrie Pope ; Evangelina Plascencia ; Nannette Hanson ; Jn Hanson V ; Donavon Barajas ; Idalmis Rosa ; Ketan Mitchell ; Abdelrahman Hart ; Anastasia Queen ; Aimee Ramos ; Jn Badillo ; Ty Tran ; Anurag Shook ; Yani Tavarez ; Evangelina Gan ; Apollo Cortez ; Miesha Fischer ; Chico Merino ; Ector Duarte ; Melvi Alcantar ; Vivek Rodgers ; Kilo Willams ; William Mas ; Meet [place] ; Codie Bobby ; Dee Sierra Other Interventions: Discharge Summary Assessment (RN) Last Done: 07/05/20 14:15
== END 2020-07-05 15:00 | disposition home health service (06) | DRG 308 ==
LOC: ED 01:15 → SUATTDRO 03:16 → 1E 03:16 → 2S 07-03 22:13

== ENCOUNTER 2020-08-01 10:39 | Inpatient (IN) ==
--- NOTE | 2020-08-01 11:20 | Emergency Department Note ---
History of Present Illness General Chief complaint: Back Injury/Pain Stated complaint: Back Pain Time Seen by Provider: 08/01/20 11:11 History of Present Illness Maximum Pain Intensity: 8 64-year-old female, well-known to the emergency department, who presents to the emergency department with complaint of back pain since falling earlier this month. The patient was seen in the emergency department with multiple x-rays. She did not have any back pain at that time, so no back x-rays were performed. She started to develop the back discomfort within 2 to 3 days after her fall. Over the past few weeks, the patient has also had intermittent abdominal pain and nausea. She reports poor appetite. She has had occasional loose stools but no raphael diarrhea. She reports decreased urine output. She has not noticed any chest pain, shortness of breath or lower extremity edema. She has had no fever or chills, myalgias, headache, sore throat, loss of taste/smell. The patient reports that she was tested 2 weeks ago and was COVID-19 negative. The patient has not contacted or followed up with her family doctor regarding her back pain or current abdominal discomfort. She rates her overall discomfort an 8 out of 10. Home Medications Medication Instructions Recorded Confirmed Type Spiriva with HandiHaler 1 cap INHALATION QAM 06/19/18 08/01/20 History atorvastatin 40 mg PO HS 06/19/18 08/01/20 History cetirizine 10 mg PO HS 06/19/18 08/01/20 History cholecalciferol (vitamin D3) 1,000 unit PO QAM 06/19/18 08/01/20 History [Vitamin D3] docusate sodium 100 mg PO DAILY PRN 06/19/18 08/01/20 History epinephrine [EpiPen] 0.3 mg IM DIRECTED PRN 06/19/18 08/01/20 History fentanyl 50 mcg TRANSDERMAL [id number] 06/19/18 08/01/20 History furosemide 80 mg PO BID 06/19/18 08/01/20 History methocarbamol 750 mg PO TID 06/19/18 08/01/20 History multivitamin 1 tab PO QAM 06/19/18 08/01/20 History ondansetron 8 mg PO BID PRN 06/19/18 08/01/20 History venlafaxine 150 mg PO QAM 06/19/18 08/01/20 History warfarin 5 mg PO [id number] 06/19/18 08/01/20 History trazodone 200 mg PO HS 09/14/18 08/01/20 History venlafaxine 75 mg PO QAM 09/14/18 08/01/20 History zolpidem 5 mg PO HS 09/14/18 08/01/20 History diclofenac sodium 2 g TOPICAL QID PRN 05/28/19 08/01/20 History gabapentin 800 mg PO BID 05/28/19 08/01/20 History alendronate 70 mg tablet 70 mg PO WE tab 06/10/19 08/01/20 History warfarin 7.5 mg PO WK 09/19/19 08/01/20 History Lantus U-100 Insulin 18 unit SUBCUT BID 03/02/20 08/01/20 History diltiazem HCl 120 mg PO QAM 03/02/20 08/01/20 History metoprolol tartrate 100 mg PO BID #120 tab 03/02/20 08/01/20 Rx pantoprazole 40 mg PO QAM 03/02/20 08/01/20 History potassium chloride 10 meq PO TID 03/02/20 08/01/20 History albuterol sulfate [Proventil HFA] 2 puffs INH Q6H PRN 03/24/20 08/01/20 History levalbuterol HCl 1.25 mg INHALATION Q4H PRN 03/24/20 08/01/20 History amlodipine 5 mg PO DAILY 05/15/20 08/01/20 History nitroglycerin [Nitrostat] 0.4 mg SUBLINGUAL DIRECTED PRN 07/02/20 08/01/20 History oxycodone 10 mg PO Q6 PRN 07/02/20 08/01/20 History fluticasone propion-salmeterol 1 inh INHALATION BID 08/01/20 08/01/20 History [Wixela Inhub] Allergies Allergy/AdvReac Type Severity Reaction Status Date / Time bee venom protein (honey bee) Allergy Severe SWELLING Verified 07/26/20 10:43 lisinopril Allergy Intermediate FACE Verified 07/26/20 10:43 SWELLING potato Allergy Intermediate BBQ chips Verified 07/26/20 10:43 - facial swelling metronidazole Allergy Mild FACE Verified 07/26/20 10:43 SWELLING strawberry Allergy Mild HIVES Verified 07/26/20 10:43 alprazolam Allergy Unknown RED FACE, Verified 07/26/20 10:43 FACE SWELLING lactose AdvReac Intermediate VOMTING Verified 07/26/20 10:43 DIARRHEA ABDOMINAL PAIN-LACTOSE INTOLERANCE prednisone AdvReac Mild AGGRESSIVE Verified 07/26/20 10:43 BEHAVIOR colesevelam AdvReac Unknown unknown Verified 07/26/20 10:43 lithium AdvReac Unknown jitters Verified 07/26/20 10:43 Past Med/Surg History Medical History Acute renal failure Anemia remote hx blood transfusion (5+ years ago)= no definitive etiology Anxiety Asthma 3LPM via n/c mostly continuous (although patient states she does not wear this all the time) Atrial fibrillation a. fib/a. flutter s/p cardioversion (2016) Atrial fibrillation with RVR Lynn esophagus Bipolar disorder Chronic back pain Chronic cor pulmonale Chronic kidney disease stage III Chronic obstructive pulmonary disease 3LPM via n/c mostly continuous (although patient states she does not wear this all the time) Chronic respiratory failure CVA (cerebral vascular accident) 2004 (per records; patient denies) Degeneration of cervical intervertebral disc Depression Diastolic CHF, chronic DM type 2 (diabetes mellitus, type 2) Elevated troponin Fibromyalgia Gastroparesis GERD (gastroesophageal reflux disease) History of Clostridium difficile infection History of DVT (deep vein thrombosis) left "hand" 2005- on AC HTN (hypertension) Hyperlipidemia Hyponatremia Hypothyroidism 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 Nocturnal hypoxemia Obesity Obstructive sleep apnea treated with BiPAP Osteoarthritis Post traumatic stress disorder Surgical History H/O: hysterectomy History of adenoidectomy History of appendectomy LAPAROSCOPY History of cardiac cath 2004= no stents History of cataract surgery BILATERAL History of cholecystectomy LAPAROSCOPY History of colonoscopy History of esophagogastroduodenoscopy (EGD) History of herniorrhaphy UMBILICAL History of hysterectomy EMIGDIO WITH BSO History of mitral valve repair 2004 + resection fibroelastoma History of tonsillectomy Hx of appendectomy Hx of lumpectomy right breast BENIGN Hx of tubal ligation Hx of umbilical hernia repair S/P trigger finger release RIGHT/LEFT Family History Mother Family history of diabetes mellitus Sister Family history of diabetes mellitus Social History Smoking Status: Current every day smoker Tobacco Type: Cigarettes Cigarettes Per Day: 10; Second Hand Exposure: No; Hx Alcohol Use: No Hx Substance Use: No Preferred Language: Setswana Communication Ability: Effective Visual Impairment: No Limitations Heel Molder Required: No Beliefs That Will Affect Care: None marital status: / Current Living Situation: Alone Current Living Situation Comment: apartment one level Feels Safe at Home: Yes Safety Concerns: Feels Safe At This Time Assistive Devices: CPAP, Walker and Wheelchair Review of Systems 10 system review was performed and was negative except for pertinent positives and negatives as indicated in history of present illness Physical Exam Vital Signs Vital Signs - 24 hr 08/01/20 11:03 08/01/20 11:40 08/01/20 14:03 Temperature 36.9 C Temperature Source Oral Pulse Rate 59 L Pulse Rate [Right Finger] 64 Respiratory Rate 20 20 Respiratory Effort / Characteristics Non-Labored Spontaneous Respiratory Depth Normal Normal Blood Pressure 157/75 H Blood Pressure [Left Arm] 125/79 Blood Pressure Mean 102 Blood Pressure Mean [Left Arm] 94 Blood Pressure Position Lying Blood Pressure Position [Left Arm] Lying Pulse Oximetry 95 96 93 Oxygen Delivery Method Room Air Nasal Cannula Nasal Cannula Oxygen Flow Rate 2 2 Sepsis Recent Fever Within 48 Hours No Sepsis New/Unexplained Change in Mental Status N/A Sepsis Action Taken by Nursing No Action Required CONSTITUTIONAL: Obese female, alert and oriented X 3. Patient does not appear acutely ill or toxic, nor does she appear in any acute distress. HEENT: Normocephalic, atraumatic. Pupils equal, round and reactive. Mucous membranes are not dry. No scleral icterus, conjunctival injection/pallor, to nsillar hypertrophy or posterior pharyngeal erythema. NECK: Full active range of motion without discomfort. No JVD or carotid bruits. LYMPHATICS: No cervical chain adenopathy. RESPIRATORY: Clear to auscultation bilaterally with no wheezing, crackles, rhonchi or stridor. CARDIOVASCULAR: Regular rate and rhythm with no murmurs, rubs or gallops. GASTROINTESTINAL: Bowel sounds present in all quadrants. Patient has minimal and generalized tenderness to palpation of the abdomen. Negative McBurney's point tenderness. Negative Simpson sign. Negative CVA tenderness. No left lower quadrant tenderness to palpation. No rigidity, guarding or rebound. MUSCULOSKELETAL: No increased warmth to palpation or erythema/bogginess over the major joints. INTEGUMENTARY: No rash or other significant dermatologic conditions noted. HEMATOLOGIC: No ecchymosis or petechiae. PSYCHIATRIC: Positive affect. NEUROLOGIC: No focal neurologic deficits noted. Course Course Patient history and physical exam were performed. Nurses notes were reviewed. Vital signs were reviewed, showing an elevated blood pressure 157/75. I did review prior medical records, especially from the patient's fall on 07/18/2020. Review of her imaging studies from that ED visit did not show any acute toe fractures that the patient is claiming that she has. Further review of medical record shows that the patient's last MRI from 10/04/2019 did show a mild disc bulge at the L4-5 level with mild spinal canal narrowing, as well as a tiny left paracentral disc protrusion at the L5-S1 level with mild left-sided foraminal narrowing. Persistent pain since her fall, I did recommend further imaging of the back. The patient also has additional symptoms of abdominal pain, nausea and poor appetite, therefore I recommended that we also check additional lab work, including heart work-up given her extensive heart history. The patient was in agreement. IV access was established, and labs were drawn. The patient was hydrated with a 500 cc normal saline bolus, and was administered IV Zofran for nausea. An ECG shows a sinus bradycardia 57 bpm with a first-degree AV block and PACs. Right bundle branch block is also appreciated. When compared with the patient's ECG from 07/04/2020, T wave inversions are no longer evident in inferior leads. The patient was placed on environmental monitoring specialist. Review of labs showed a significant hyponatremia at 123. She is also mildly hypokalemic at 3.3. Remaining electrolytes, troponin, phosphorus, magnesium, LFTs, troponin and CBC were grossly normal. Urinalysis shows 1+ hematuria without signs of infection. An abdomen obstruction series with a PA chest view did not show any obstructive pattern or free air. Radiologist makes mention of a possible infectious/inflammatory pneumonitis; it is noted that the patient has not had any fevers, cough or shortness of breath, therefore I do not suspect infection or CHF. X-rays of the thoracolumbar spine shows a superior endplate T3 compression fracture. Patient does have reproducible tenderness to palpation over this region, therefore I do suspect that this is an acute fracture. The case was further discussed with Dr. Sesay, ED attending physician, who also evaluated the patient and agrees with hospitalist admission. The case was discussed with the [facility] hospitalist service. Please see their dictation for further treatment and final disposition. COVID-19 testing was also ordered at the request prior to admission. Administered Medications Fentanyl (Fentanyl 50 Mcg/Hr Tdsy) 50 mcg TD Q72H JORGE Stop: 08/15/20 16:29 Last Admin: 08/01/20 16:56 Dose: 50 mcg Documented by: [id number] Potassium Chloride/Sodium Chloride (Normal Saline W/20 Meq Kcl) 20 meq in 1,000 mls @ 75 mls/hr IV .[id number] JORGE Stop: 08/02/20 05:49 Last Admin: 08/01/20 16:57 Dose: 75 mls/hr Documented by: [id number] Insulin Aspart (Insulin Aspart 100 Units/Ml 3 Ml Pen) 0 units SC ACHS JORGE Stop: 08/31/20 16:29 Last Admin: 08/01/20 17:42 Dose: 6 units Documented by: [id number] Cosigned by: [id number] Miscellaneous (Fentanyl Patch Remove & Waste) 1 ea N/A Q72H JORGE Stop: 08/31/20 16:29 Last Admin: 08/01/20 16:56 Dose: 1 ea Documented by: [id number] Cosigned by: [id number] Miscellaneous (Check Fentanyl Patch Placement) 1 ea N/A QS JORGE Stop: 08/31/20 15:59 Last Admin: 08/01/20 16:00 Dose: 1 ea Documented by: [id number] Nicotine (Nicotine 14 Mg/24 Hr Patch) 14 mg TD QAM JORGE Stop: 08/31/20 16:29 Last Admin: 08/01/20 16:58 Dose: 14 mg Documented by: [id number] Ondansetron HCl (Ondansetron Inj 2 Mg/Ml 2 Ml Vial) 4 mg IV Q6H PRN PRN Reason: Nausea Stop: 08/31/20 15:59 Last Admin: 08/01/20 16:56 Dose: 4 mg Documented by: [id number] Oxycodone HCl (Oxycodone Hcl Ir 5 Mg Tab (Immediate Release)) 10 mg PO Q6 PRN PRN Reason: Pain Stop: 08/15/20 15:59 Last Admin: 08/01/20 16:43 Dose: 10 mg Documented by: [id number] Warfarin Sodium (Warfarin Sod 5 Mg Tab) 5 mg PO [id number] JORGE Stop: 08/31/20 16:29 Last Admin: 08/01/20 16:57 Dose: 5 mg Documented by: [id number] Discontinued Medications Sodium Chloride (Nss 1000ml) 500 mls @ 999 mls/hr IV .Q31M ONE Stop: 08/01/20 11:57 Last Infusion: 08/01/20 12:35 Dose: 0 mls/hr Documented by: [id number] Admin: 08/01/20 12:01 Dose: 999 mls/hr Documented by: [id number] Sodium Chloride (Nss) 500 mls @ 999 mls/hr IV .Q31M ONE Stop: 08/01/20 14:39 Last Infusion: 08/01/20 15:00 Dose: 0 mls/hr Documented by: [id number] Admin: 08/01/20 14:26 Dose: 999 mls/hr Documented by: [id number] Ondansetron HCl (Ondansetron Inj 2 Mg/Ml 2 Ml Vial) 4 mg IV NOW STA Stop: 08/01/20 11:28 Last Admin: 08/01/20 12:00 Dose: 4 mg Documented by: [id number] Potassium Chloride (Potassium Chloride Crtab 20 Meq Tabcr) 20 meq PO NOW STA Stop: 08/01/20 14:47 Last Admin: 08/01/20 15:17 Dose: 20 meq Documented by: [id number] Medical Decision Making Medical Records Attestation: I reviewed the patient's medical records. Home Medications Current Medication List: was personally reviewed by me Laboratory Data Attestation: I reviewed the patient's lab results. Result diagrams: 08/01/20 11:49 08/01/20 16:16 Lab Results 08/01/20 08/01/20 08/01/20 Range/Units 11:49 11:49 11:55 WBC 6.50 (4.8-10.8) K/uL RBC 4.47 (4.2-5.4) M/uL Hgb 13.7 (12.0-16.0) g/dL Hct 38.9 (37-47) % MCV 87.0 (80-100) fL MCH 30.6 (25-34) pg MCHC 35.2 (32-36) g/dL RDW Std Deviation 43.1 (36.4-46.3) fL RDW Coeff of King 13.4 (11.5-14.5) % Plt Count 333 (130-400) K/uL MPV 9.6 (7.4-10.4) fL Immature Gran % (Auto) 0.2 % Neut % (Auto) 76.0 % Lymph % (Auto) 13.4 % [place] % (Auto) 8.8 % Eos % (Auto) 1.4 % Baso % (Auto) 0.2 % Neut # (Auto) 4.95 (1.4-6.5) K/uL Lymph # (Auto) 0.87 L (1.2-3.4) K/uL [place] # (Auto) 0.57 (0.11-0.59) K/uL Eos # (Auto) 0.09 (0-0.5) K/uL Baso # (Auto) 0.01 (0-0.2) K/uL Immature Gran # (Auto) 0.01 (0.00-0.02) K/uL PT (9.0-12.0) Seconds INR (0.9-1.1) Sodium 123 L (136-145) mmol/L Potassium 3.3 L (3.5-5.1) mmol/L Chloride 81 L (98-107) mmol/L Carbon Dioxide 36 H (21-32) mmol/L Anion Gap 7.0 (3-11) BUN 19 H (7-18) mg/dl Creatinine 1.48 H (0.6-1.2) mg/dl Est Cr Clr Drug Dosing 45.3 ml/min Est GFR ( Amer) 43.2 Est GFR (Non-Af Amer) 37.3 BUN/Creatinine Ratio 12.8 (10-20) Glucose 181 H (70-99) mg/dl Calcium 9.7 (8.5-10.1) mg/dl Phosphorus 4.3 (2.5-4.9) mg/dl Magnesium 1.8 (1.8-2.4) mg/dl Total Bilirubin 0.3 (0.2-1) mg/dl AST 33 (15-37) U/L ALT 38 (12-78) U/L Alkaline Phosphatase 88 (45-117) U/L Troponin I < 0.015 (0-0.045) ng/ml Total Protein 7.1 (6.4-8.2) gm/dl Albumin 2.9 L (3.4-5.0) gm/dl Globulin 4.2 H (2.5-4.0) gm/dl Albumin/Globulin Ratio 0.7 L (0.9-2) Lipase 89 (73-393) U/L Specimen Hemolysis Urine Color Yellow Urine Appearance Clear (Clear) Urine pH 5.5 (4.5-7.5) Ur Specific Strong 1.008 (1.000-1.030) Urine Protein Trace H (Negative) Urine Glucose (UA) Negative (Negative) Urine Ketones Negative (Negative) Urine Blood 1+ H (Negative) Urine Nitrite Negative (Negative) Urine Bilirubin Negative (Negative) Urine Urobilinogen Negative (Negative) Ur Leukocyte Esterase Negative (Negative) Urine WBC (Auto) 0 (0-5) /hpf Urine RBC (Auto) 0-4 (0-4) /hpf U Hyaline Cast (Auto) 0 (0-5) /lpf U Epithel Cells (Auto) 0-5 (0-5) /lpf Urine Bacteria (Auto) Negative (Negative) COVID-19 Eval Order SARS-CoV-2, RNA, NAAT (NEGATIVE) 08/01/20 08/01/20 08/01/20 Range/Units 12:42 14:38 14:38 WBC (4.8-10.8) K/uL RBC (4.2-5.4) M/uL Hgb (12.0-16.0) g/dL Hct (37-47) % MCV (80-100) fL MCH (25-34) pg MCHC (32-36) g/dL RDW Std Deviation (36.4-46.3) fL RDW Coeff of King (11.5-14.5) % Plt Count (130-400) K/uL MPV (7.4-10.4) fL Immature Gran % (Auto) % Neut % (Auto) % Lymph % (Auto) % [place] % (Auto) % Eos % (Auto) % Baso % (Auto) % Neut # (Auto) (1.4-6.5) K/uL Lymph # (Auto) (1.2-3.4) K/uL [place] # (Auto) (0.11-0.59) K/uL Eos # (Auto) (0-0.5) K/uL Baso # (Auto) (0-0.2) K/uL Immature Gran # (Auto) (0.00-0.02) K/uL PT 30.7 H (9.0-12.0) Seconds INR 3.1 H (0.9-1.1) Sodium (136-145) mmol/L Potassium (3.5-5.1) mmol/L Chloride (98-107) mmol/L Carbon Dioxide (21-32) mmol/L Anion Gap (3-11) BUN (7-18) mg/dl Creatinine (0.6-1.2) mg/dl Est Cr Clr Drug Dosing ml/min Est GFR ( Amer) Est GFR (Non-Af Amer) BUN/Creatinine Ratio (10-20) Glucose (70-99) mg/dl Calcium (8.5-10.1) mg/dl Phosphorus (2.5-4.9) mg/dl Magnesium (1.8-2.4) mg/dl Total Bilirubin (0.2-1) mg/dl AST (15-37) U/L ALT (12-78) U/L Alkaline Phosphatase (45-117) U/L Troponin I (0-0.045) ng/ml Total Protein (6.4-8.2) gm/dl Albumin (3.4-5.0) gm/dl Globulin (2.5-4.0) gm/dl Albumin/Globulin Ratio (0.9-2) Lipase (73-393) U/L Specimen Hemolysis Urine Color Urine Appearance (Clear) Urine pH (4.5-7.5) Ur Specific Strong (1.000-1.030) Urine Protein (Negative) Urine Glucose (UA) (Negative) Urine Ketones (Negative) Urine Blood (Negative) Urine Nitrite (Negative) Urine Bilirubin (Negative) Urine Urobilinogen (Negative) Ur Leukocyte Esterase (Negative) Urine WBC (Auto) (0-5) /hpf Urine RBC (Auto) (0-4) /hpf U Hyaline Cast (Auto) (0-5) /lpf U Epithel Cells (Auto) (0-5) /lpf Urine Bacteria (Auto) (Negative) COVID-19 Eval Order Covid19 IDNow Count includes the [facility] SARS-CoV-2, RNA, NAAT NEGATIVE (NEGATIVE) Imaging Data Attestation: I personally reviewed and interpreted this imaging study as follows: My Impression: My interpretation of an abdomen obstruction series with a PA chest view does not show any obstructive pattern, constipation or abdominal free air. The radiologist does question a possible infectious/inflammatory pneumonitis, however the patient is currently asymptomatic. My interpretation of thoracolumbar x-rays shows a T3 superior endplate compression fracture that appears to be new from prior imaging studies. The patient is also reproducibly tender to palpation, likely indicating an acute injury from her fall 2 weeks ago. Radiology reports were reviewed. Radiologist's Impression: PA CHEST WITH ABDOMINAL SERIES CLINICAL HISTORY: Generalized abdominal pain. Nausea. FINDINGS: 2 PA chest radiographs are compared to study dated 07/18/2020. The heart is enlarged noting atherosclerotic calcification of the thoracic aorta. There is evidence of previous cardiac valve surgery. Emphysema and chronic interstitial thickening is similar to previous. A small pulmonary herniation is again seen on the right. No large pleural effusion or pneumothorax is seen. The skeletal structures are osteopenic. The bony thorax is grossly intact. Supine and erect abdominal radiographs are correlated with abdominal CT dated . Cholecystectomy clips are seen in the right upper quadrant. Surgical clips also project over the left groin. There is a nonobstructed abdominal bowel gas pattern. No evidence of intraperitoneal free air is seen. There are no abnormal abdominal calcifications. The lumbosacral spine and bony pelvis appear intact. IMPRESSION: 1. Cardiomegaly emphysema with diffuse interstitial thickening. This is similar to prior studies, and could represent pulmonary edema and/or an infectious/inflammatory pneumonitis. Clinical correlation will be required. 2. Nonobstructed abdominal bowel gas pattern. XR lumbar spine min 4V routine, XR thoracic spine 3V routine HISTORY: 64 years-old Female Back pain s/p fall acute mid and low back pain status post fall COMPARISON: chest radiograph 07/03/2020, chest radiographs 05/31/2019, Lumbar spine MRI 10/04/2019 TECHNIQUE: 4 views of the thoracic spine and 5 views of the lumbar spine FINDINGS: THORACIC: Unchanged marked cardiomegaly with a neoplastic changes. Calcified plaque of the thoracic aorta. Reticular opacities of the lungs. Surgical clips project over the right upper chest. 12 rib-bearing thoracic-type vertebral segments are present. Minimal convex right curvature of the midthoracic spine. There is mild to moderate multilevel intervertebral disc space narrowing with spondylitic spurring and facet arthrosis. Minimal superior endplate compression at T3 without retropulsion, likely chronic. LUMBAR: Surgical clips project over the right upper quadrant and central abdomen. Calcified plaque of the abdominal aorta. Unremarkable soft tissues. 5 nonrib- bearing lumbar type vertebral segments are present. No spondylolysis or spondylolisthesis. Mild to moderate disc space narrowing at L5-S1 with mild multilevel intervertebral disc space narrowing and mild to moderate spondylitic spurring. Moderate to severe facet arthrosis at L4-L5 and L5-S1. IMPRESSION: 1. No definite acute fracture or subluxation of the thoracolumbar spine. 2. Mild superior endplate compression deformity at T3 without retropulsion is favored to be chronic. ECG Data Attestation: I personally reviewed and interpreted this ECG as follows: Indication: + abdominal pain, + nausea and + weakness Rate (beats per minute): 57 Rhythm: + sinus bradycardia ECG Intervals/blocks: + First degree AV block and + Right Bundle branch block ECG ST segments: + Normal ST segments ECG Findings: + PACs Comparison ECG Date: from (07/04/2020) Change: the following changes noted (T wave inversions in inferior leads. New PACs.) Blood Pressure Blood Pressure Findings: Elevated blood pressure MDM Narrative Cardiac monitoring: An order was placed for continuous cardiac monitoring. The monitor shows a rate of 57 bpm with a sinus bradycardic rhythm, first-degree AV block and PACs. Right bundle branch block is also noted. equipment monitor phototypesetting history was reviewed throughout the evaluation, and no dysrhythmias were noted. Patient presents to the emergency department with primary complaint of mild abdominal discomfort, nausea and intermittent diarrhea. She also complains of middle to upper back pain after sustaining a fall 2 weeks ago. Work-up today does show a profound hyponatremia that will require admission for repletion. She is also mildly hyponatremic. Lab work, ECG and chest x-ray is not suggestive of an acute cardiac event, CHF, pneumonia or pneumothorax. Patient is also mildly hypokalemic. Patient is afebrile and has no leukocytosis to suggest overwhelming infection or sepsis. Impression & Plan Acute hyponatremia, Acute hypokalemia, Compression fracture of T3 vertebra, Status post fall Discharge Plan Visit Data Chief Complaint: Back Injury/Pain Stated Complaint: Back Pain ED Provider: Fabricio Sesay ED Midlevel Provider: Michael Delarosa Discharge Problem: Acute hyponatremia, Acute hypokalemia, Compression fracture of T3 vertebra, Status post fall Patient Disposition: Admitted As Inpatient Discharge Instructions Interventions: ED Discharge Assessment Last Done: 08/01/20 15:30 Discharge Problem: Compression fracture of T3 vertebra Qualifiers: Encounter type: initial encounter Qualified Code(s): S22.030A - Wedge compression fracture of third thoracic vertebra, initial encounter for closed fracture
[2020-08-01] MEDS ORDERED: ONDANSETRON INJ 2 MG/ML 2 ML VIAL IV STA (11:27)
[2020-08-01] MEDS ORDERED: SODIUM CHLORIDE 0.9% 1000ML 500 ML IV ONE (11:27)
[2020-08-01 12:05] LABS: Basophils # (auto) 0.01 K/uL (0-0.2); Basophils % (auto) 0.2 %; Eosinophils # (auto) 0.09 K/uL (0-0.5); Eosinophils % (auto) 1.4 %; Hematocrit (blood only) 38.9 % (37-47); Hemoglobin 13.7 g/dL (12.0-16.0); Immature Granulocytes # (auto) 0.01 K/uL (0.00-0.02); Immature Granulocytes % (auto) 0.2 %; Lymphocytes # (auto) 0.87 K/uL (1.2-3.4); Lymphocytes % (auto) 13.4 %; Mean Corpuscular Hemoglobin 30.6 pg (25-34); Mean Corpuscular Hgb Conc 35.2 g/dL (32-36); Mean Platelet Volume 9.6 fL (7.4-10.4); Monocytes # (auto) 0.57 K/uL (0.11-0.59); Monocytes % (auto) 8.8 %; Neutrophils # (auto) 4.95 K/uL (1.4-6.5); Platelet Count 333 K/uL (130-400); RDW Coefficient of Variation 13.4 % (11.5-14.5); RDW Standard Deviation 43.1 fL (36.4-46.3); Red Blood Count 4.47 M/uL (4.2-5.4)
[2020-08-01 12:08] LABS: Appearance Urine Clear (Clear); Bacteria Urine Automated Negative (Negative); Bilirubin Urine Negative (Negative); Blood Urine 1+ (Negative); Cast Urine Automated 0 /lpf (0-5); Color Urine Yellow; Epithelial Cell Urine Auto 0-5 /lpf (0-5); Glucose Urine UA Negative (Negative); Ketones Urine Negative (Negative); Leukocyte Esterase Urine Negative (Negative); Nitrite Urine Negative (Negative); Protein Urine Trace (Negative); RBC Urine Automated 0-4 /hpf (0-4); Specific Gravity Urine 1.008 (1.000-1.030); Urobilinogen Urine Negative (Negative); WBC Urine Automated 0 /hpf (0-5); pH Urine 5.5 (4.5-7.5)
[2020-08-01 12:27] LABS: Alanine Aminotransferase 38 U/L (12-78); Albumin Level 2.9 gm/dl (3.4-5.0); Aspartate Aminotransferase 33 U/L (15-37); BUN Creatinine Ratio 12.8 (10-20); Blood Urea Nitrogen 19 mg/dl (7-18); Calcium 9.7 mg/dl (8.5-10.1); Carbon Dioxide 36 mmol/L (21-32); Chloride 81 mmol/L (98-107); Creatinine Clr Calc Pharmacy 45.3 ml/min; Est GFR (African American) 43.2; Est GFR (Non-African American) 37.3; Glucose 181 mg/dl (70-99); Lipase 89 U/L (73-393); Magnesium 1.8 mg/dl (1.8-2.4); Potassium 3.3 mmol/L (3.5-5.1); Sodium 123 mmol/L (136-145)
[2020-08-01 12:35] LABS: Albumin Globulin Ratio 0.7 (0.9-2); Alkaline Phosphatase 88 U/L (45-117); Bilirubin,Total 0.3 mg/dl (0.2-1); Globulin 4.2 gm/dl (2.5-4.0); Phosphorus 4.3 mg/dl (2.5-4.9); Total Protein 7.1 gm/dl (6.4-8.2); Troponin I < 0.015 ng/ml (0-0.045)
[2020-08-01 13:05] LABS: INR 3.1 (0.9-1.1); Prothrombin Time 30.7 Seconds (9.0-12.0)
--- NOTE | 2020-08-01 13:37 | XRay Report ---
PA CHEST WITH ABDOMINAL SERIES CLINICAL HISTORY: Generalized abdominal pain. Nausea. FINDINGS: 2 PA chest radiographs are compared to study dated 07/18/2020. The heart is enlarged noting atheroscle rotic calcification of the thoracic aorta. There is evidence of previous cardiac valve surgery. Emphy sema and chronic interstitial thickening is similar to previous. A small pulmonary herniation is agai n seen on the right. No large pleural effusion or pneumothorax is seen. The skeletal structures are o steopenic. The bony thorax is grossly intact. Supine and erect abdominal radiographs are correlated with abdominal CT dated 03/01/2019. Cholecystect florencio clips are seen in the right upper quadrant. Surgical clips also project over the left groin. Ther e is a nonobstructed abdominal bowel gas pattern. No evidence of intraperitoneal free air is seen. Th ere are no abnormal abdominal calcifications. The lumbosacral spine and bony pelvis appear intact. IMPRESSION: 1. Cardiomegaly emphysema with diffuse interstitial thickening. This is similar to prior studies, and could represent pulmonary edema and/or an infectious/inflammatory pneumonitis. Clinical correlation will be required. 2. Nonobstructed abdominal bowel gas pattern. ACT 112: Negative or not required by law. Electronically signed by: Jame Batres M.D. 08/01/2020 1:35 PM
--- NOTE | 2020-08-01 13:37 | XRay Report ---
XR lumbar spine min 4V routine, XR thoracic spine 3V routine HISTORY: 64 years-old Female Back pain s/p fall acute mid and low back pain status post fall COMPARISON: chest radiograph 07/03/2020, chest radiographs 05/31/2019, Lumbar spine MRI 10/04/2019 TECHNIQUE: 4 views of the thoracic spine and 5 views of the lumbar spine FINDINGS: THORACIC: Unchanged marked cardiomegaly with a neoplastic changes. Calcified plaque of the thoracic aorta. Reti cular opacities of the lungs. Surgical clips project over the right upper chest. 12 rib-bearing thoracic-type vertebral segments are present. Minimal convex right curvature of the mi dthoracic spine. There is mild to moderate multilevel intervertebral disc space narrowing with spondy litic spurring and facet arthrosis. Minimal superior endplate compression at T3 without retropulsion, likely chronic. LUMBAR: Surgical clips project over the right upper quadrant and central abdomen. Calcified plaque of the abd ominal aorta. Unremarkable soft tissues. 5 nonrib-bearing lumbar type vertebral segments are present. No spondylolysis or spondylolisthesis. Mild to moderate disc space narrowing at L5-S1 with mild mult ilevel intervertebral disc space narrowing and mild to moderate spondylitic spurring. Moderate to sev ere facet arthrosis at L4-L5 and L5-S1. IMPRESSION: 1. No definite acute fracture or subluxation of the thoracolumbar spine. 2. Mild superior endplate compression deformity at T3 without retropulsion is favored to be chronic. ACT 112: Negative or not required by law. The above report was generated using voice recognition software. It may contain grammatical, syntax o r spelling errors. Electronically signed by: Ye Alva M.D. 08/01/2020 1:36 PM
[2020-08-01] MEDS ORDERED: SODIUM CHLORIDE 0.9% 500 ML IV ONE (14:09)
[2020-08-01] MEDS ORDERED: POTASSIUM CHLORIDE CRTAB 20 MEQ TABCR PO STA (14:46)
--- NOTE | 2020-08-01 15:05 | History & Physical Report ---
Date of Service August 01, 2020 Assessment & Plan (1) Acute hyponatremia: This is a 64-year-old medically complex female with significant past medical history of chronic hypoxic respiratory failure on 3 L of O2, COPD, insulin- dependent T2DM, diabetic neuropathy, diabetic gastroparesis, PAF anticoagulated on warfarin, DARIUS on CPAP, chronic cor pulmonale, history of venous embolism, AAA HTN, CKD stage III, history of mitral valve repair, MDD who presents to ED secondary to nausea x2 weeks; diarrhea x2 days; worsening back pain x1 week. Corrected Na 125. Likely in setting of aggressive diuresis with 80mg lasix BID and daily zaroxlyn along with GI Loss from diarrhea. Mental status intact. Nausea likely result of hyponatremia. Now with hyponatremia, hypokalemia, hypochloremia. admit to PCU received 1 L IVF in ED - repeat BMP and then q4h consult nephro - Dr. Lakeali obtain serum osm, urine osm, urine na hold lasix and zaroxlyn gentle IVF NS with 20meq KCL x 1 additional L - follow BMP (2) Acute hypokalemia: K 3.3 , likely in setting of GI loss from diarrhea and diuretics replace 20meq KCL orally as well as supplement in IVF monitor bmp (3) Compression fracture of T3 vertebra: Status post fall 2 weeks ago Thoracic imaging reveals superior endplate fracture of T3 continue prn oxyocodone PT/OT consult Dr. Heard for orthopedic spine input (4) Diarrhea: pt reports 2 days of nonbloody diarrhea, lower abd pain abd exam benign KUB: no active disease stool culture, cdiff ordered monitor (5) DM type 2 (diabetes mellitus, type 2): Last A1c 7.6 07/19/2020 Home regimen is Lantus [address] on Lantus/NovoLog per protocol (6) Atrial fibrillation: s/p cardioversion 06/2020 continue metoprolol and Cardizem INR 3.1 today continue home regimen 5mg all days, except 7.5mg yesterday (last dose of 07/31) (7) Chronic respiratory failure with hypoxia, on home oxygen therapy: (8) Chronic obstructive pulmonary disease: no acute exac On O2 to 3 L via NC Continue home inhalers As needed levalbuterol (9) Diastolic CHF, chronic: euvolemic echo 06/2020 revealed EF 65 to 70%, severe LVH Continue metoprolol, but hold Lasix and Zaroxolyn in setting of acute hyponatremia Monitor volume status closely Daily weights, strict I's and O's (10) Hyperlipidemia: continue statin (11) Depression: continue trazodone, effexor mood stable (12) Chronic back pain: pt with chronic back pain and fibromyalgia on fentanyl patch now with acute thoracic back pain s/p fall continue prn oxycodone (13) DVT prophylaxis: warfarin Disposition: admit to PCU Follow up: PCP Dr. Goins upon discharge Pt was seen and examined in collaboration with Dr. Martin, please see addendum History of Present Illness Chief Complaint: Nausea x2 weeks; diarrhea x2 days; worsening back pain x1 week. Primary Care Provider: Manoj Goins, This is a 64-year-old medically complex female with significant past medical history of chronic hypoxic respiratory failure on 3 L of O2, COPD, insulin- dependent T2DM, diabetic neuropathy, diabetic gastroparesis, PAF anticoagulated on warfarin, DARIUS on CPAP, chronic cor pulmonale, history of venous embolism, AAA HTN, CKD stage III, history of mitral valve repair, MDD who presents to ED secondary to nausea x2 weeks; diarrhea x2 days; worsening back pain x1 week. For significance patient recently hospitalized 07/02-07/05 secondary to atrial fibrillation with RVR. She will require cardioversion at that time and is continued to maintain sinus rhythm. Echocardiogram was performed which revealed EF 65 to 70%, severe LVH, flattened septum consistent with RV pressure overload, annuloplasty ring in mitral position, and mild MR. She was subsequently discharged home and seen again in ED on 07/18 status post fall. She was discharged home without any acute fracture. Since discharge she is overall not that well complaining of constant nausea and increased fatigue. Stating she sleeps most of the day. She does live alone at home and ambulates with assist device. She has noted over the past 3 weeks worsening nausea and approximately 1 week ago development of lower abdominal pain. Pain comes and goes and describes as a dull ache. Denies any exacerbating or relieving factors. Over the past 2 days she has exhibited diarrhea, 5 episodes so far today and 4 yesterday. She denies recent antibiotic use. She denies any melena or hematochezia. She further denies fever, chills, sweats, lightheadedness, dizziness, syncope, chest pain, shortness of breath at rest, palpitations, emesis, dysuria, increased urgency or frequency with urination. She does have a chronic dry cough at baseline secondary to COPD, this is unchanged. He does get intermittent shortness of breath with COPD and has experienced increased shortness of breath the last 2 days, but has felt her breathing was improved t rossy. She does take daily nebulizer treatments. Besides nausea new onset diarrhea she also complains of significant back discomfort. It started approximately a week after the fall. Pain is located centrally in her mid back and does not radiate. She denies any numbness or tingling. Has been continuing to worsen. She has been taking oxycodone with mild relief. She is on chronic fentanyl patch. She was seen and evaluated in ED. She made hemodynamically stable saturating on 2 L of O2. Lab work consistent with hyponatremia, corrected at 125. Her potassium was 3.3, chloride 81, CO2 36, BUN 19, creatinine 1.48, glucose 181. Covid negative. Thoracic spine x-ray revealed T3 compression fracture, favored to be chronic. In ED she received 1 L of IVF. Allergies Allergy/AdvReac Type Severity Reaction Status Date / Time bee venom protein (honey bee) Allergy Severe SWELLING Verified 07/26/20 10:43 lisinopril Allergy Intermediate FACE Verified 07/26/20 10:43 SWELLING potato Allergy Intermediate BBQ chips Verified 07/26/20 10:43 - facial swelling metronidazole Allergy Mild FACE Verified 07/26/20 10:43 SWELLING strawberry Allergy Mild HIVES Verified 07/26/20 10:43 alprazolam Allergy Unknown RED FACE, Verified 07/26/20 10:43 FACE SWELLING lactose AdvReac Intermediate VOMTING Verified 07/26/20 10:43 DIARRHEA ABDOMINAL PAIN-LACTOSE INTOLERANCE prednisone AdvReac Mild AGGRESSIVE Verified 07/26/20 10:43 BEHAVIOR colesevelam AdvReac Unknown unknown Verified 07/26/20 10:43 lithium AdvReac Unknown jitters Verified 07/26/20 10:43 Home Medications Medication Instructions Recorded Confirmed Type Spiriva with HandiHaler 1 cap INHALATION QAM 06/19/18 08/01/20 History atorvastatin 40 mg PO HS 06/19/18 08/01/20 History cetirizine 10 mg PO HS 06/19/18 08/01/20 History cholecalciferol (vitamin D3) 1,000 unit PO QAM 06/19/18 08/01/20 History [Vitamin D3] docusate sodium 100 mg PO DAILY PRN 06/19/18 08/01/20 History epinephrine [EpiPen] 0.3 mg IM DIRECTED PRN 06/19/18 08/01/20 History fentanyl 50 mcg TRANSDERMAL [id number] 06/19/18 08/01/20 History furosemide 80 mg PO BID 06/19/18 08/01/20 History methocarbamol 750 mg PO TID 06/19/18 08/01/20 History multivitamin 1 tab PO QAM 06/19/18 08/01/20 History ondansetron 8 mg PO BID PRN 06/19/18 08/01/20 History venlafaxine 150 mg PO QAM 06/19/18 08/01/20 History warfarin 5 mg PO 6XWK 06/19/18 08/01/20 History trazodone 200 mg PO HS 09/14/18 08/01/20 History venlafaxine 75 mg PO QAM 09/14/18 08/01/20 History zolpidem 5 mg PO HS 09/14/18 08/01/20 History diclofenac sodium 2 g TOPICAL QID PRN 05/28/19 08/01/20 History gabapentin 800 mg PO BID 05/28/19 08/01/20 History alendronate 70 mg tablet 70 mg PO WE tab 06/10/19 08/01/20 History warfarin 7.5 mg PO WK 09/19/19 08/01/20 History Lantus U-100 Insulin 18 unit SUBCUT BID 03/02/20 08/01/20 History diltiazem HCl 120 mg PO QAM 03/02/20 08/01/20 History metoprolol tartrate 100 mg PO BID #120 tab 03/02/20 08/01/20 Rx pantoprazole 40 mg PO QAM 03/02/20 08/01/20 History potassium chloride 10 meq PO TID 03/02/20 08/01/20 History albuterol sulfate [Proventil HFA] 2 puffs INH Q6H PRN 03/24/20 08/01/20 History levalbuterol HCl 1.25 mg INHALATION Q4H PRN 03/24/20 08/01/20 History amlodipine 5 mg PO DAILY 05/15/20 08/01/20 History nitroglycerin [Nitrostat] 0.4 mg SUBLINGUAL DIRECTED PRN 07/02/20 08/01/20 History oxycodone 10 mg PO Q6 PRN 07/02/20 08/01/20 History fluticasone propion-salmeterol 1 inh INHALATION BID 08/01/20 08/01/20 History [[facility] Inhub] Past Med/Surg History Medical History Acute renal failure Anemia remote hx blood transfusion (5+ years ago)= no definitive etiology Anxiety Asthma 3LPM via n/c mostly continuous (although patient states she does not wear this all the time) Atrial fibrillation a. fib/a. flutter s/p cardioversion (2016) Atrial fibrillation with RVR [place] esophagus Bipolar disorder Chronic back pain Chronic cor pulmonale Chronic kidney disease stage III Chronic obstructive pulmonary disease 3LPM via n/c mostly continuous (although patient states she does not wear this all the time) Chronic respiratory failure CVA (cerebral vascular accident) 2004 (per records; patient denies) Degeneration of cervical intervertebral disc Depression Diastolic CHF, chronic DM type 2 (diabetes mellitus, type 2) Elevated troponin Fibromyalgia Gastroparesis GERD (gastroesophageal reflux disease) History of Clostridium difficile infection History of DVT (deep vein thrombosis) left "hand" 2005- on AC HTN (hypertension) Hyperlipidemia Hyponatremia Hypothyroidism 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 Nocturnal hypoxemia Obesity Obstructive sleep apnea treated with BiPAP Osteoarthritis Post traumatic stress disorder Surgical History H/O: hysterectomy History of adenoidectomy History of appendectomy LAPAROSCOPY History of cardiac cath 2004= no stents History of cataract surgery BILATERAL History of cholecystectomy LAPAROSCOPY History of colonoscopy History of esophagogastroduodenoscopy (EGD) History of herniorrhaphy UMBILICAL History of hysterectomy EMIGDIO WITH BSO History of mitral valve repair 2004 + resection fibroelastoma History of tonsillectomy Hx of appendectomy Hx of lumpectomy right breast BENIGN Hx of tubal ligation Hx of umbilical hernia repair S/P trigger finger release RIGHT/LEFT Family History Mother Family history of diabetes mellitus Sister Family history of diabetes mellitus Social History Smoking Status: Current every day smoker Tobacco Type: Cigarettes Cigarettes Per Day: 10; Second Hand Exposure: No; Hx Alcohol Use: No Hx Substance Use: No Preferred Language: [place] Leone[place] Communication Ability: Effective Visual Impairment: No Limitations Training Program Manager Required: No Beliefs That Will Affect Care: None marital status: / Current Living Situation: Alone Current Living Situation Comment: apartment one level Feels Safe at Home: Yes Safety Concerns: Feels Safe At This Time Assistive Devices: CPAP, Walker and Wheelchair Review of Systems Review of Systems: All systems reviewed & are unremarkable except as noted in HPI & below Physical Exam Physical Exam: Constitutional: WD/WN, chronically ill-appearing female, vitals as above, NAD, sitting up in bed, pleasant, conversing easily Head: Normocephalic, Atraumatic Eyes: PERRL, conjunctivae normal, anicteric sclerae ENMT: external ear and nose normal, oropharynx normal Neck: trachea midline, no thyromegaly normal visual inspection Respiratory: On 2 L O2 via NC, normal respiratory effort, lungs clear to auscultation, no wheeze, rales, rhonchi. Normal insp/exp effort, no accessory muscle use Cardiovascular: RRR, no murmur, no edema, bilateral venous stasis changes, vessels: no JVD or carotid bruit Chest: normal inspection of chest Abdomen: normal bowel sounds, soft, nontender, no hepatosplenomegaly Musculoskeletal: no cyanosis or clubbing, extremities motor strength 5/5, pinpoint tenderness to thoracic spinous processes Skin: Right medial knee ecchymosis, tender to palpation no rashes, warm and dry normal turgor Neurologic: PERRL, EOMI, accommodation nl, no face palsy, no dysarthria CN's II-XI intact bilaterally and moves all extremities Psychiatric: A+Ox3, euthymic affect Lymphatic: no cervical or axillary lymphadenopathy : deferred Results & Data Results & Data ([facility]) Vital Signs (Past 12 Hours) Vital Signs Temp Pulse Pulse Resp BP BP Pulse Ox 08/01/20 14:03 64 20 125/79 93 08/01/20 11:40 96 11/17/20 11:03 36.9 C 59 L 20 157/75 H 95 Laboratory Results Short CBC 08/01/20 08/01/20 Range/Units 11:49 11:49 WBC 6.50 (4.8-10.8) K/uL Hgb 13.7 (12.0-16.0) g/dL Hct 38.9 (37-47) % Plt Count 333 (130-400) K/uL Sodium 123 L (136-145) mmol/L Carbon Dioxide 36 H (21-32) mmol/L Creatinine 1.48 H (0.6-1.2) mg/dl BMP 08/01/20 11:49 Sodium 123 L Potassium 3.3 L Chloride 81 L Carbon Dioxide 36 H BUN 19 H Creatinine 1.48 H Glucose 181 H Calcium 9.7 Cardiac Enzymes 08/01/20 Range/Units 11:49 Troponin I < 0.015 (0-0.045) ng/ml Liver Function 08/01/20 Range/Units 11:49 Total Bilirubin 0.3 (0.2-1) mg/dl AST 33 (15-37) U/L ALT 38 (12-78) U/L Alkaline Phosphatase 88 (45-117) U/L Albumin 2.9 L (3.4-5.0) gm/dl Urine 08/01/20 Range/Units 11:55 Urine Color Yellow Urine Appearance Clear (Clear) Urine pH 5.5 (4.5-7.5) Ur Specific [place] 1.008 (1.000-1.030) Urine Protein Trace H (Negative) Urine Glucose (UA) Negative (Negative) Diagnostic Findings Thoracic Spine Xray: IMPRESSION: 1. No definite acute fracture or subluxation of the thoracolumbar spine. 2. Mild superior endplate compression deformity at T3 without retropulsion is favored to be chronic. Lumbar spine Xray: IMPRESSION: 1. No definite acute fracture or subluxation of the thoracolumbar spine. 2. Mild superior endplate compression deformity at T3 without retropulsion is favored to be chronic. CXR/KUB: IMPRESSION: 1. Cardiomegaly emphysema with diffuse interstitial thickening. This is similar to prior studies, and could represent pulmonary edema and/or an infectious/inflammatory pneumonitis. Clinical correlation will be required. 2. Nonobstructed abdominal bowel gas pattern. Medications Administered Discontinued Medications Sodium Chloride (Nss 1000ml) 500 mls @ 999 mls/hr IV .Q31M ONE Stop: 08/01/20 11:57 Last Infusion: 08/01/20 12:35 Dose: 0 mls/hr Documented by: [id number] Admin: 08/01/20 12:01 Dose: 999 mls/hr Documented by: [id number] Sodium Chloride (Nss) 500 mls @ 999 mls/hr IV .Q31M ONE Stop: 08/01/20 14:39 Last Admin: 08/01/20 14:26 Dose: 999 mls/hr Documented by: [id number] Ondansetron HCl (Ondansetron Inj 2 Mg/Ml 2 Ml Vial) 4 mg IV NOW STA Stop: 08/01/20 11:28 Last Admin: 08/01/20 12:00 Dose: 4 mg Documented by: [id number] ECG Rate (beats per minute): 57 Rhythm: sinus bradycardia Findings: + 1st degree AV block and + PAC Code Status & VTE Plan Code Status Full Code VTE Prophylaxis Plan VTE Prophylaxis will be ordered: No Reason for no VTE drug order: Treatment not indicated Reason for no VTE mechanical prophylaxis: Treatment not indicated Supervising Physician Co-Signing Physician Notes Attending addendum : pt seen and examined , care coordinated with Joy Quinonez PA-C this is a 64 yo F with complex past medical hx presented to ER with symptoms of ongoing nausea , vomiting , diarrhea generalized weakness , falling at home Lab shows : acute hyponatremia , hypochloremia , acute renal failure admit to tele slow correction of Na level , Nephrology consulted , appreciate input ordered for stool studies / Cdiff assay for Diarrhea /loose stool PT/Ot eval fall precaution please refer to further documentation by Joy Quinonez PA-C for discussion of other chronic issues Lizeth Martin MD (1) Compression fracture of T3 vertebra Encounter type: initial encounter Qualified Code(s): S22.030A - Wedge compression fracture of third thoracic vertebra, initial encounter for closed fracture
[2020-08-01] MEDS ORDERED: DEXTROSE 50% 50 ML SYRINGE IV PRN (16:00)
[2020-08-01] MEDS ORDERED: GLUCOSE 40% GEL 15 GM TUBE PO PRN (16:00)
[2020-08-01] MEDS ORDERED: CARBOHYDRATES FOR HYPOGLYCEMIA PO PRN (16:00)
[2020-08-01] MEDS: CHECK fentaNYL PATCH PLACEMENT SCH ×2 (16:00→23:39)
[2020-08-01] MEDS ORDERED: ACETAMINOPHEN 325 MG TAB PO PRN (16:00)
[2020-08-01] MEDS ORDERED: GLUCOSE 10 TABS/TUBE PO PRN (16:00)
[2020-08-01] MEDS ORDERED: LEVALBUTEROL HCL 1.25 MG/3 ML NEB INH PRN (16:00)
[2020-08-01] MEDS ORDERED: POLYETHYLENE (MIRALAX) 17 GM PACK PO PRN (16:00)
[2020-08-01] MEDS ORDERED: ALUMINUM/MAGNESIUM SUSP 30 ML UDC PO PRN (16:00)
[2020-08-01] MEDS ORDERED: MAGNESIUM HYDROXIDE SUSP 30 ML UDC PO PRN (16:00)
[2020-08-01] MEDS ORDERED: GLUCAGON FOR INJ 1 MG VIAL SQ PRN (16:00)
[2020-08-01] MEDS ORDERED: NSS + 20MEQ KCL 20 MEQ/1,000 ML BAG IV SCH (16:30)
[2020-08-01] MEDS ORDERED: fentaNYL 50 MCG/HR TDSY TD SCH (16:30)
[2020-08-01] MEDS: oxyCODONE HCL IR 5 MG TAB (IMMEDIATE RELEASE) PO PRN (16:43)
[2020-08-01 16:49] LABS: BUN Creatinine Ratio 13.7 (10-20); Calcium 9.1 mg/dl (8.5-10.1); Creatinine Clr Calc Pharmacy 48.9 ml/min; Est GFR (African American) 47.5; Est GFR (Non-African American) 40.9; Potassium 3.3 mmol/L (3.5-5.1)
[2020-08-01] MEDS: ONDANSETRON INJ 2 MG/ML 2 ML VIAL IV PRN ×2 (16:56→23:35)
[2020-08-01] MEDS: WARFARIN SOD 5 MG TAB PO SCH (16:57)
[2020-08-01] MEDS: NICOTINE 14 MG/24 HR PATCH TD SCH (16:58)
--- NOTE | 2020-08-01 16:59 | Electrocardiogram Report ---
Test Reason : Blood Pressure : / mmHG Vent. Rate : 057 BPM Atrial Rate : 057 BPM P-R Int : 214 ms QRS Dur : 160 ms QT Int : 502 ms P-R-T Axes : 062 095 017 degrees QTc Int : 488 ms Sinus bradycardia with 1st degree A-V block with Premature atrial complexes Right bundle branch block Abnormal ECG When compared with ECG of 04-JUL-2020 08:51, Premature atrial complexes are now Present T wave inversion no longer evident in Inferior leads Confirmed by Sergio Alvarez ([id number]) on 08/01/2020 4:59:15 PM Referred By: REFERRED SELF Confirmed By:Sergio Alvarez
[2020-08-01] MEDS: INSULIN ASPART 100 UNITS/ML 3 ML PEN SC SCH ×2 (17:42→20:42)
[2020-08-01] MEDS: INSULIN GLARGINE SOLOSTAR 100 UNITS/ML 3 ML PEN SC SCH (20:43)
[2020-08-01] MEDS: CETIRIZINE HCL 10 MG TABLET PO SCH (20:46)
[2020-08-01] MEDS: METOPROLOL TARTRATE 100 MG TAB PO SCH (20:46)
[2020-08-01] MEDS: METHOCARBAMOL 750 MG TABLET PO SCH (20:47)
[2020-08-01] MEDS: ATORVASTATIN 40 MG TAB PO SCH (20:47)
[2020-08-01] MEDS: GABAPENTIN 800 MG TAB PO SCH (20:48)
[2020-08-01] MEDS: POTASSIUM CHLORIDE 10 MEQ TABCR PO SCH (20:52)
[2020-08-01 20:55] LABS: BUN Creatinine Ratio 10.4 (10-20); Calcium 9.2 mg/dl (8.5-10.1); Creatinine Clr Calc Pharmacy 36.6 ml/min; Est GFR (African American) 33.4; Est GFR (Non-African American) 28.9; Potassium 3.6 mmol/L (3.5-5.1)
[2020-08-01] MEDS: ZOLPIDEM TARTRATE 5 MG TAB PO SCH (22:12)
[2020-08-01] MEDS: traZODone HCL 100 MG TAB PO SCH (22:12)
[2020-08-02 01:10] LABS: BUN Creatinine Ratio 11.3 (10-20); Calcium 8.6 mg/dl (8.5-10.1); Est GFR (Non-African American) 31.1; Potassium 2.9 mmol/L (3.5-5.1)
[2020-08-02] MEDS ORDERED: POTASSIUM CHLORIDE CRTAB 20 MEQ TABCR PO STA (01:48)
[2020-08-02 04:53] LABS: Basophils # (auto) 0.01 K/uL (0-0.2); Basophils % (auto) 0.2 %; Eosinophils # (auto) 0.21 K/uL (0-0.5); Eosinophils % (auto) 3.7 %; Hematocrit (blood only) 36.8 % (37-47); Hemoglobin 12.5 g/dL (12.0-16.0); Immature Granulocytes # (auto) 0.01 K/uL (0.00-0.02); Immature Granulocytes % (auto) 0.2 %; Lymphocytes # (auto) 1.33 K/uL (1.2-3.4); Lymphocytes % (auto) 23.3 %; Mean Corpuscular Volume 88.2 fL (80-100); Mean Platelet Volume 8.9 fL (7.4-10.4); Monocytes # (auto) 0.58 K/uL (0.11-0.59); Monocytes % (auto) 10.1 %; Neutrophils # (auto) 3.58 K/uL (1.4-6.5); Neutrophils % (auto) 62.5 %; Platelet Count 272 K/uL (130-400); RDW Coefficient of Variation 13.6 % (11.5-14.5); Red Blood Count 4.17 M/uL (4.2-5.4); White Blood Count 5.72 K/uL (4.8-10.8)
[2020-08-02 05:01] LABS: INR 3.1 (0.9-1.1); Prothrombin Time 30.7 Seconds (9.0-12.0)
[2020-08-02 05:33] LABS: BUN Creatinine Ratio 12.4 (10-20); Calcium 8.2 mg/dl (8.5-10.1); Creatinine Clr Calc Pharmacy 42.4 ml/min; Est GFR (African American) 39.9; Est GFR (Non-African American) 34.5; Potassium 3.2 mmol/L (3.5-5.1)
[2020-08-02] MEDS: ONDANSETRON INJ 2 MG/ML 2 ML VIAL IV PRN ×2 (06:14→13:14)
[2020-08-02] MEDS ORDERED: ALENDRONATE SODIUM 70 MG TAB PO SCH (06:30)
[2020-08-02] MEDS: PANTOprazole 40 MG TAB PO SCH (07:57)
[2020-08-02] MEDS: METHOCARBAMOL 750 MG TABLET PO SCH ×3 (07:57→21:50)
[2020-08-02] MEDS: VENLAFAXINE HCL XR 150 MG CAPXR PO SCH (07:57)
[2020-08-02] MEDS: NICOTINE 14 MG/24 HR PATCH TD SCH (07:58)
[2020-08-02] MEDS: MULTIVITAMIN TAB PO SCH (07:58)
[2020-08-02] MEDS: GABAPENTIN 800 MG TAB PO SCH ×2 (07:59→21:51)
[2020-08-02] MEDS: METOPROLOL TARTRATE 100 MG TAB PO SCH ×2 (07:59→21:50)
[2020-08-02] MEDS: amLODIPine BESYLATE 5 MG TAB PO SCH (07:59)
[2020-08-02] MEDS: dilTIAZem HCL 120 MG CAPCR PO SCH (07:59)
[2020-08-02] MEDS: VENLAFAXINE HCL XR 75 MG CAPXR PO SCH (07:59)
[2020-08-02] MEDS: CHOLECALCIFEROL 1,000 UNITS 25 MCG TAB PO SCH (07:59)
[2020-08-02] MEDS: FLUTICASONE/VILANTEROL 200/25MCG 14 PUFFS/INHALER INH SCH (08:00)
[2020-08-02] MEDS: CHECK fentaNYL PATCH PLACEMENT SCH ×3 (08:00→23:26)
[2020-08-02] MEDS: UMECLIDINIUM BROMIDE 62.5MCG/BLISTER 7 PUFFS/INHALER INH SCH (08:01)
[2020-08-02] MEDS: POTASSIUM CHLORIDE 10 MEQ TABCR PO SCH ×3 (08:04→21:58)
[2020-08-02] MEDS: INSULIN GLARGINE SOLOSTAR 100 UNITS/ML 3 ML PEN SC SCH ×2 (08:09→22:05)
[2020-08-02] MEDS: INSULIN ASPART 100 UNITS/ML 3 ML PEN SC SCH ×4 (08:11→22:05)
[2020-08-02] MEDS: oxyCODONE HCL IR 5 MG TAB (IMMEDIATE RELEASE) PO PRN ×2 (08:17→21:57)
[2020-08-02 08:44] LABS: BUN Creatinine Ratio 12.4 (10-20); Calcium 9.1 mg/dl (8.5-10.1); Creatinine Clr Calc Pharmacy 41.7 ml/min; Est GFR (African American) 40.2; Est GFR (Non-African American) 34.7
[2020-08-02] MEDS: UREA (URE-NA) 15 GM PACK PO SCH ×2 (11:40→21:50)
--- NOTE | 2020-08-02 12:17 | Consultation ---
Date of Consultation August 02, 2020 Assessment & Plan (1) Compression fracture of T3 vertebra: This case has been reviewed with Dr. Heard. Although radiographic interpretation is leaning towards a chronic fracture, patient has pain that is severe across the midline mid to upper thoracic region and is 2 weeks status post fall. This would favor an acute fracture. None the last treatment is the same. No bracing due to the location of fracture. Continue with pain control. Limited lifting with her arms, pushing, pulling. Ambulate ad christophe. No need for surgical intervention. Supervising Physician Co-Signing Physician Notes Dr. Joce Heard History of Present Illness This is a 64-year-old female who we are asked to see in consultation regarding a T3 compression fracture. Patient states she has pain across the upper to mid thoracic region. This started roughly 2 weeks ago when she sustained a fall at home. Sometimes it radiates across her axilla to her anterior chest wall. She does have oxycodone and Duragesic patch 50 mcg at home for her chronic pain. She normally ambulates with a walker when she is at home and a wheelchair when outside of the home. Denies any bowel or bladder changes. Denies perineum numbness. Denies radicular leg pain, paresthesia, numbness. Attending Physician: Elise Guillaume MD Allergies Allergy/AdvReac Type Severity Reaction Status Date / Time bee venom protein (honey bee) Allergy Severe SWELLING Verified 07/26/20 10:43 lisinopril Allergy Intermediate FACE Verified 07/26/20 10:43 SWELLING potato Allergy Intermediate BBQ chips Verified 07/26/20 10:43 - facial swelling metronidazole Allergy Mild FACE Verified 07/26/20 10:43 SWELLING strawberry Allergy Mild HIVES Verified 07/26/20 10:43 alprazolam Allergy Unknown RED FACE, Verified 07/26/20 10:43 FACE SWELLING lactose AdvReac Intermediate VOMTING Verified 07/26/20 10:43 DIARRHEA ABDOMINAL PAIN-LACTOSE INTOLERANCE prednisone AdvReac Mild AGGRESSIVE Verified 07/26/20 10:43 BEHAVIOR colesevelam AdvReac Unknown unknown Verified 07/26/20 10:43 lithium AdvReac Unknown jitters Verified 07/26/20 10:43 Home Medications Medication Instructions Recorded Confirmed Type Spiriva with HandiHaler 1 cap INHALATION QAM 06/19/18 08/01/20 History atorvastatin 40 mg PO HS 06/19/18 08/01/20 History cetirizine 10 mg PO HS 06/19/18 08/01/20 History cholecalciferol (vitamin D3) 1,000 unit PO QAM 06/19/18 08/01/20 History [Vitamin D3] docusate sodium 100 mg PO DAILY PRN 06/19/18 08/01/20 History epinephrine [EpiPen] 0.3 mg IM DIRECTED PRN 06/19/18 08/01/20 History fentanyl 50 mcg TRANSDERMAL [id number] 06/19/18 08/01/20 History furosemide 80 mg PO BID 06/19/18 08/01/20 History methocarbamol 750 mg PO TID 06/19/18 08/01/20 History multivitamin 1 tab PO QAM 06/19/18 08/01/20 History ondansetron 8 mg PO BID PRN 06/19/18 08/01/20 History venlafaxine 150 mg PO QAM 06/19/18 08/01/20 History warfarin 5 mg PO 6XWK 06/19/18 08/01/20 History trazodone 200 mg PO HS 09/14/18 08/01/20 History venlafaxine 75 mg PO QAM 09/14/18 08/01/20 History zolpidem 5 mg PO HS 09/14/18 08/01/20 History diclofenac sodium 2 g TOPICAL QID PRN 05/28/19 08/01/20 History gabapentin 800 mg PO BID 05/28/19 08/01/20 History alendronate 70 mg tablet 70 mg PO WE tab 06/10/19 08/01/20 History warfarin 7.5 mg PO WK 09/19/19 08/01/20 History Lantus U-100 Insulin 18 unit SUBCUT BID 03/02/20 08/01/20 History diltiazem HCl 120 mg PO QAM 03/02/20 08/01/20 History metoprolol tartrate 100 mg PO BID #120 tab 03/02/20 08/01/20 Rx pantoprazole 40 mg PO QAM 03/02/20 08/01/20 History potassium chloride 10 meq PO TID 03/02/20 08/01/20 History albuterol sulfate [Proventil HFA] 2 puffs INH Q6H PRN 03/24/20 08/01/20 History levalbuterol HCl 1.25 mg INHALATION Q4H PRN 03/24/20 08/01/20 History amlodipine 5 mg PO DAILY 05/15/20 08/01/20 History nitroglycerin [Nitrostat] 0.4 mg SUBLINGUAL DIRECTED PRN 07/02/20 08/01/20 History oxycodone 10 mg PO Q6 PRN 07/02/20 08/01/20 History fluticasone propion-salmeterol 1 inh INHALATION BID 08/01/20 08/01/20 History [Wixela Inhub] Patient History Medical History Acute renal failure Anemia remote hx blood transfusion (5+ years ago)= no definitive etiology Anxiety Asthma 3LPM via n/c mostly continuous (although patient states she does not wear this all the time) Atrial fibrillation a. fib/a. flutter s/p cardioversion (2016) Atrial fibrillation with RVR Lynn esophagus Bipolar disorder Chronic back pain Chronic cor pulmonale Chronic kidney disease stage III Chronic obstructive pulmonary disease 3LPM via n/c mostly continuous (although patient states she does not wear this all the time) Chronic respiratory failure CVA (cerebral vascular accident) 2004 (per records; patient denies) Degeneration of cervical intervertebral disc Depression Diastolic CHF, chronic DM type 2 (diabetes mellitus, type 2) Elevated troponin Fibromyalgia Gastroparesis GERD (gastroesophageal reflux disease) History of Clostridium difficile infection History of DVT (deep vein thrombosis) left "hand" 2004- on AC HTN (hypertension) Hyperlipidemia Hyponatremia Hypothyroidism 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 Nocturnal hypoxemia Obesity Obstructive sleep apnea treated with BiPAP Osteoarthritis Post traumatic stress disorder Surgical History H/O: hysterectomy History of adenoidectomy History of appendectomy LAPAROSCOPY History of cardiac cath 2004= no stents History of cataract surgery BILATERAL History of cholecystectomy LAPAROSCOPY History of colonoscopy History of esophagogastroduodenoscopy (EGD) History of herniorrhaphy UMBILICAL History of hysterectomy EMIGDIO WITH BSO History of mitral valve repair 2004 + resection fibroelastoma History of tonsillectomy Hx of appendectomy Hx of lumpectomy right breast BENIGN Hx of tubal ligation Hx of umbilical hernia repair S/P trigger finger release RIGHT/LEFT Family History Mother Family history of diabetes mellitus Sister Family history of diabetes mellitus Social History Smoking Status: Current every day smoker Tobacco Type: Cigarettes Cigarettes Per Day: 10; Second Hand Exposure: No; Hx Alcohol Use: No Hx Substance Use: No Preferred Language: Belarusian Communication Ability: Effective Visual Impairment: No Limitations Cleaner Window Required: No Beliefs That Will Affect Care: None marital status: / Current Living Situation: Alone Current Living Situation Comment: apartment one level Feels Safe at Home: Yes Safety Concerns: Feels Safe At This Time Assistive Devices: Oxygen - Continuous Review of Systems Review of Systems: All systems reviewed & are unremarkable except as noted in HPI & below Physical Exam Physical Exam: Patient is lying in bed 110. She is alert and oriented x3. She is in no acute distress. She is able to roll over in bed for me so I may examine her thoracolumbar spine. No ecchymosis. No lacerations. She is tender to patient at the midline upper/midline thoracic region. Strength is 5 5 bilateral EHL, dorsiflexion, plantarflexion, quadriceps, h amstrings. Constitutional: WD/WN, vitals as above well nourished Eyes: normal visual mills by confrontation ENMT: external ear and nose normal, oropharynx normal Neck: normal visual inspection Respiratory: normal respiratory effort Cardiovascular: Vessels: dorsalis pedis pulses present Chest (Breasts): Chest: normal inspection of chest Gastrointestinal (Abdomen): Inspection/Auscultation: abdomen normal to inspection Musculoskeletal: Spine: + thoracic spinal tenderness Extremities: strength 5/5 throughout Skin: no rashes, warm and dry Neurologic: patellar DTR's 2+ bilat, sensation intact moves all extremities Psychiatric: A+Ox3, euthymic affect Results & Data ([facility]) Vital Signs (Past 12 Hours) Vital Signs Temp Pulse Pulse Resp BP Pulse Ox 08/02/20 08:00 36.6 C 60 18 140/40 L 95 08/02/20 04:02 90 08/02/20 03:49 36.7 C 54 L 13 132/53 L 89 L 08/02/20 03:20 51 L 18 93 08/02/20 00:20 55 L 20 118/38 L 91 Diagnostic Findings [facility], [id number] XRay Report Patient: ALVARO ROBERTS IAdmit Date: 08/01/20MR#: [id number]: [address]Acct ID:[id number]: Date: 1955City Zip: [place] [address]Bqs: 64Location: EDSex: FRoom/Bed:Att Phy:Diagnosis: Back PainPri Phy: Manoj Goins, DOService Date: 08/01/20Fam Phy:Interpreting Phy: Dominick RoblerocherAdmit Phy: Ordering Phy: Michael Delarosa PA cc: ~ XR lumbar spine min 4V routine, XR thoracic spine 3V routine HISTORY: 64 years-old Female Back pain s/p fall acute mid and low back pain status post fall COMPARISON: chest radiograph 07/03/2020, chest radiographs 05/31/2019, Lumbar spine MRI 10/04/2019 TECHNIQUE: 4 views of the thoracic spine and 5 views of the lumbar spine FINDINGS: THORACIC: Unchanged marked cardiomegaly with a neoplastic changes. Calcified plaque of the thoracic aorta. Reticular opacities of the lungs. Surgical clips project over the right upper chest. 12 rib-bearing thoracic-type vertebral segments are present. Minimal convex right curvature of the midthoracic spine. There is mild to moderate multilevel intervertebral disc space narrowing with spondylitic spurring and facet arthrosis. Minimal superior endplate compression at T3 without retropulsion, likely chronic. LUMBAR: Surgical clips project over the right upper quadrant and central abdomen. Calcified plaque of the abdominal aorta. Unremarkable soft tissues. 5 nonrib- bearing lumbar type vertebral segments are present. No spondylolysis or spondylolisthesis. Mild to moderate disc space narrowing at L5-S1 with mild multilevel intervertebral disc space narrowing and mild to moderate spondylitic spurring. Moderate to severe facet arthrosis at L4-L5 and L5-S1. IMPRESSION: 1. No definite acute fracture or subluxation of the thoracolumbar spine. 2. Mild superior endplate compression deformity at T3 without retropulsion is favored to be chronic. ACT 112: Negative or not required by law. The above report was generated using voice recognition software. It may contain grammatical, syntax or spelling errors. Electronically signed by: Ye Alva M.D. 08/01/2020 1:36 PM Dictated: 08/01/20 1331Transcribed: 08/01/20 1331 (1) Compression fracture of T3 vertebra Encounter type: initial encounter Qualified Code(s): S22.030A - Wedge compression fracture of third thoracic vertebra, initial encounter for closed fracture
[2020-08-02 12:25] LABS: BUN Creatinine Ratio 17.9 (10-20); Calcium 9.2 mg/dl (8.5-10.1); Creatinine Clr Calc Pharmacy 42.5 ml/min; Est GFR (African American) 41.2; Est GFR (Non-African American) 35.5; Potassium 4.3 mmol/L (3.5-5.1)
[2020-08-02] MEDS: FUROSEMIDE 40 MG in SYRINGE 0 ML IV SCH ×2 (13:08→18:45)
[2020-08-02] MEDS: SODIUM CHLORIDE 0.9% 1000ML 1,000 ML IV SCH ×2 (13:09→23:26)
--- NOTE | 2020-08-02 13:15 | Consultation Report ---
DATE OF CONSULTATION: 08/02/2020 NEPHROLOGY CONSULTATION NOTE REASON FOR CONSULT: Hyponatremia. HISTORY OF PRESENT ILLNESS: The patient is a 64-year-old female with chronic hypoxic respiratory failure, on 3 liters of oxygen secondary to COPD as well as insulin-dependent type 2 diabetes with diabetic neuropathy, diabetic gastroparesis, congestive heart failure and atrial fibrillation as well as obstructive sleep apnea, on CPAP, who presented to the hospital yesterday with nausea for 2 weeks, diarrhea for a few days and worsening back pain for the last 1 week. She was found to have a compression fracture of the T3 vertebra corresponding to her back pain. Blood work showed a serum sodium of 125. The patient does take Lasix as well as metolazone as needed. Her serum sodium was 138 as of 07/05/2020, which is about 3 weeks from her hospitalization. Overnight, she got some IV fluid. With that, sodium went up to 129, but now it is lower again at 126. Diuretics were on hold. She is not on fluid restriction as of now. Her oral intake of food was very low, but she was still drinking a good bit of liquid. Urine sodium 56. Urine osmolality 188. PAST MEDICAL AND SURGICAL HISTORY: Includes severe COPD with hypoxic respiratory failure, cor pulmonale, on chronic oxygen, paroxysmal atrial fibrillation, on Coumadin, obstructive sleep apnea, on CPAP, history of venous embolism, AAA, hypertension, CKD stage III, history of mitral valve repair, chronic diastolic congestive heart failure, diabetic neuropathy, longstanding diabetes, diabetic gastroparesis, history of CVA, migraine, hysterectomy, adenoidectomy, appendicectomy, history of cardiac cath and multiple other surgeries as detailed in HPI. FAMILY HISTORY: Negative for renal disease or dialysis. SOCIAL HISTORY: She is currently a smoker. No alcohol. She is a , lives alone in an apartment. She uses walker and wheelchair for ambulation. MEDICATIONS: Medications at home is a very long list and was reviewed in detail and is as per the H and P. She takes Lasix 80 mg twice daily as well as metolazone as needed. ALLERGIES: List was reviewed and is as per H and P. REVIEW OF SYSTEMS: As detailed in HPI. Positive review of system includes nausea, vomiting, poor appetite, and back pain for the last 1-2 weeks, very poor oral intake of solid food, but still drinking lots of liquid. PHYSICAL EXAMINATION: GENERAL: Elderly white female who appears chronically ill. She looks older than her stated age. She is awake, alert and oriented x3. She is not in any overt respiratory distress at this time. VITAL SIGNS: Blood pressure 140/40, pulse rate 60, temperature 36.6 degrees Celsius, 95% on 2 liter nasal cannula. CHEST: Bilateral decreased breath sounds with occasional wheezing. CARDIOVASCULAR: S1, S2 irregular. Systolic murmur soft heard. ABDOMEN: Soft, nontender. EXTREMITIES: Show no edema at all, but she does have chronic skin changes from chronic edema, but no edema at this time. LABORATORY TESTS: Sodium was 123 at the time of admission, most recent is 126, BUN 28, creatinine 1.54. Urine sodium 56. Urine osmolality 188. UA showed a very low specific gravity of 1.008. ASSESSMENT: A 64-year-old female with very extensive medical problem list, admitted with nausea, vomiting, poor appetite, back pain for the last 1-2 weeks and was found to have hyponatremia, for which I have been consulted. Hyponatremia: This is multifactorial. This is not a simple case of hypovolemic hyponatremia. Because of the pain and nausea, she has some degree of syndrome of inappropriate antidiuretic hormone secretion worsened by polydipsia and very poor intake of solid food creating a low solute diet. Metolazone probably added to the hyponatremia problem. Given that this is a multifactorial situation, it will not be easy to correct her serum sodium. PLAN AND RECOMMENDATIONS: 1. Repeat urine osmolality and urine sodium. 2. Urea packet 15 g twice daily. 3. We will give both normal saline at 80 mL per hour as well as Lasix IV. The combination should provide with volume as well as salt load. Lasix will cause predominantly water diuresis, which should help raise the sodium. Continue BMP every 6 hours at this point. 4. Fluid restriction of 1500 mL per day. MTDD
[2020-08-02] MEDS: WARFARIN SOD 5 MG TAB PO SCH (16:54)
[2020-08-02 17:11] LABS: Creatinine Clr Calc Pharmacy 44.6 ml/min; Est GFR (African American) 43.6; Est GFR (Non-African American) 37.6; Potassium 3.7 mmol/L (3.5-5.1)
--- NOTE | 2020-08-02 18:13 | Hospitalist Progress Note ---
Date of Service August 02, 2020 Assessment & Plan (1) Acute hyponatremia: Present on admission with recurrent diarrhea associated with nausea Na on admission 123, most recent NA 128 today Possible related to diarrhea and diuresis and hypovolemia Nephrology on board Continue urea packet 15 g BID and Lasix 40mg BID Continue IV NSS at 80cc Continue monitor BMP Continue Fluid restriction of 1500 mL per day. (2) Acute hypokalemia: Mostly related to diuretic and diarrhea K 3.3 on admission Continue K supplement K today 3.7 Continue monitor BMP (3) Compression fracture of T3 vertebra: Status post fall 2 weeks ago Thoracic xray showed mild superior endplate compression deformity at T3 without retropulsion is favored to be chronic. Ortho on board recommended conservative management. No need for surgical intervention. No bracing due to the location of fracture. Limited lifting with her arms, pushing, pulling. continue prn Oxycodone Continue PT/OT (4) Diarrhea: Nausea KUB showed non obstructed abdominal bowel gas pattern. KUB: no active disease Diarrhea improves Continue monitor electrolytes (5) DM type 2 (diabetes mellitus, type 2): Last A1c 7.6 07/19/2020 On Lantus/NovoLog per protocol Continue monitor BS (6) Atrial fibrillation: s/p cardioversion 06/2020 continue metoprolol and Cardizem INR 3.1 today continue home regimen 5mg all days, except 7.5mg yesterday (last dose of 07/31) (7) Chronic respiratory failure with hypoxia, on home oxygen therapy: (8) Chronic obstructive pulmonary disease: Continue O2 to 3 L via NC Continue home inhalers As needed levalbuterol (9) Diastolic CHF, chronic: Echo on 06/2020 revealed EF 65 to 70%, severe LVH Continue metoprolol and Lasix resumed today Continue monitor for fluid overload Stable (10) Hyperlipidemia: Continue statin (11) Depression: Continue trazodone, effexor mood stable (12) Chronic back pain: Chronic back pain and fibromyalgia Continue fentanyl patch and prn oxycodone (13) DVT prophylaxis: Continue warfarin Disposition: Continue monitor in tele Admission and Anticipated Discharge Date Admission Date: August 01, 2020 Subjective Pt was seen and examined Lying in bed with no distress Pt said that she feels much better She said that she did not have any bm yet today Her diarrhea improves She said that she feels nauseated She said that her pain improves with the narcotic Denies any chess pain, palpitation, dizziness and SOB Physical Exam Physical Exam: General- No acute distress Head- atraumatic Eyes- PERRL, EOMI, ENT- oropharynx clear Neck- supple, no JVD Lungs- clear to auscultation Heart- regular rhythm Abdomen- normal bowel sounds, soft, nontender Extremities- no calf tenderness Neuro- alert, oriented x 3; PERRL, EOMI; no facial palsy; no dysarthria Skin- warm & dry Results & Data Results & Data ([facility]) Vital Signs (Past 12 Hours) Vital Signs Temp Pulse Resp BP Pulse Ox 08/02/20 16:00 36.5 C 63 18 127/51 L 96 08/02/20 12:00 36.5 C 64 16 127/62 95 08/02/20 08:00 36.6 C 60 18 140/40 L 95 (1) Compression fracture of T3 vertebra Encounter type: initial encounter Qualified Code(s): S22.030A - Wedge compression fracture of third thoracic vertebra, initial encounter for closed fracture
[2020-08-02] MEDS: ATORVASTATIN 40 MG TAB PO SCH (21:50)
[2020-08-02] MEDS: CETIRIZINE HCL 10 MG TABLET PO SCH (21:50)
[2020-08-02] MEDS: traZODone HCL 100 MG TAB PO SCH (21:51)
[2020-08-02] MEDS: ZOLPIDEM TARTRATE 5 MG TAB PO SCH (21:58)
[2020-08-03 04:47] LABS: INR 2.6 (0.9-1.1); Prothrombin Time 25.9 Seconds (9.0-12.0)
[2020-08-03] MEDS: INSULIN GLARGINE SOLOSTAR 100 UNITS/ML 3 ML PEN SC SCH ×2 (07:56→20:39)
[2020-08-03] MEDS: INSULIN ASPART 100 UNITS/ML 3 ML PEN SC SCH ×4 (07:57→20:39)
[2020-08-03] MEDS: FLUTICASONE/VILANTEROL 200/25MCG 14 PUFFS/INHALER INH SCH (07:57)
[2020-08-03] MEDS: METOPROLOL TARTRATE 100 MG TAB PO SCH ×2 (07:58→20:07)
[2020-08-03] MEDS: dilTIAZem HCL 120 MG CAPCR PO SCH (07:58)
[2020-08-03] MEDS: UMECLIDINIUM BROMIDE 62.5MCG/BLISTER 7 PUFFS/INHALER INH SCH (07:58)
[2020-08-03] MEDS: UREA (URE-NA) 15 GM PACK PO SCH ×3 (07:58→20:04)
[2020-08-03] MEDS: PANTOprazole 40 MG TAB PO SCH (07:59)
[2020-08-03] MEDS: VENLAFAXINE HCL XR 150 MG CAPXR PO SCH (07:59)
[2020-08-03] MEDS: CHOLECALCIFEROL 1,000 UNITS 25 MCG TAB PO SCH (07:59)
[2020-08-03] MEDS: FUROSEMIDE 40 MG in SYRINGE 0 ML IV SCH ×2 (07:59→17:01)
[2020-08-03] MEDS: MULTIVITAMIN TAB PO SCH (07:59)
[2020-08-03] MEDS: GABAPENTIN 800 MG TAB PO SCH ×2 (07:59→20:06)
[2020-08-03] MEDS: amLODIPine BESYLATE 5 MG TAB PO SCH (07:59)
[2020-08-03] MEDS: METHOCARBAMOL 750 MG TABLET PO SCH ×3 (07:59→20:06)
[2020-08-03] MEDS: NICOTINE 14 MG/24 HR PATCH TD SCH (07:59)
[2020-08-03] MEDS: VENLAFAXINE HCL XR 75 MG CAPXR PO SCH (07:59)
[2020-08-03] MEDS: CHECK fentaNYL PATCH PLACEMENT SCH ×2 (08:15→15:58)
[2020-08-03] MEDS: POTASSIUM CHLORIDE 10 MEQ TABCR PO SCH ×3 (08:50→20:06)
[2020-08-03 11:14] LABS: INR 2.6 (0.9-1.1); Prothrombin Time 26.1 Seconds (9.0-12.0)
[2020-08-03] MEDS: SODIUM CHLORIDE 0.9% 1000ML 1,000 ML IV SCH (11:27)
[2020-08-03 11:31] LABS: BUN Creatinine Ratio 40.1 (10-20); Calcium 9.6 mg/dl (8.5-10.1); Creatinine Clr Calc Pharmacy 44.9 ml/min; Est GFR (African American) 43.6; Est GFR (Non-African American) 37.6; Potassium 3.6 mmol/L (3.5-5.1)
--- NOTE | 2020-08-03 12:35 | Progress Notes ---
DATE: 08/03/2020 NEPHROLOGY PROGRESS NOTE SUBJECTIVE: The patient appears to be stable overnight, no new issues. OBJECTIVE: VITAL SIGNS: Blood pressure 147/52, pulse rate 61, temperature 36.8, 95% on 4 liter nasal cannula. HEENT: Mucous membrane is moist. NECK: Supple. No jugular venous distention. CHEST: Bilateral decreased breath sounds. CARDIOVASCULAR: S1, S2 regular. ABDOMEN: Soft, nontender. EXTREMITIES: Show no edema, although she has chronic skin changes from chronic edema. LABORATORY TEST: From this morning was reviewed and shows sodium is still low. ASSESSMENT: A 64-year-old female with very extensive medical problem list, admitted with nausea, vomiting, poor appetite, back pain for the last 1-2 weeks and was found to have hyponatremia, for which I have been consulted. Hyponatremia: This is multifactorial and not a simple case of hypervolemic hyponatremia. Because of this, it will be quite difficult to correct her serum sodium. PLAN AND RECOMMENDATIONS: 1. Increase urea packet to 15 g 3 times a day. 2. Decrease normal saline to 50 mL per hour. 3. Continue Lasix 40 IV twice daily. 4. Decrease fluid restriction to 1200 mL per day. BMP every 8 hours at this point.
[2020-08-03] MEDS: WARFARIN SOD 5 MG TAB PO SCH (15:57)
[2020-08-03] MEDS: CETIRIZINE HCL 10 MG TABLET PO SCH (20:07)
[2020-08-03] MEDS: ATORVASTATIN 40 MG TAB PO SCH (20:07)
--- NOTE | 2020-08-03 20:28 | Hospitalist Progress Note ---
Date of Service August 03, 2020 Assessment & Plan (1) Acute hyponatremia: Present on admission with recurrent diarrhea associated with nausea Na on admission 123, most recent NA 131 today Possible related to diarrhea and diuresis and hypovolemia Nephrology on board Urea packet increased to 15 g TID and Lasix 40mg BID IVF dropped to 50 CC Continue monitor BMP Continue Fluid restriction of 1500 mL per day. (2) Acute hypokalemia: Mostly related to diuretic and diarrhea K 3.3 on admission Continue K supplement K today 3.7 Continue monitor BMP (3) Compression fracture of T3 vertebra: Status post fall 2 weeks ago Thoracic xray showed mild superior endplate compression deformity at T3 without retropulsion is favored to be chronic. Ortho on board recommended conservative management. No need for surgical intervention. No bracing due to the location of fracture. Limited lifting with her arms, pushing, pulling. continue prn Oxycodone Continue PT/OT (4) Diarrhea: Nausea KUB showed non obstructed abdominal bowel gas pattern. KUB: no active disease Diarrhea and nausea improve significantly Continue monitor electrolytes (5) DM type 2 (diabetes mellitus, type 2): Last A1c 7.6 07/19/2020 On Lantus/NovoLog per protocol BS dropped to 78 today Continue monitor BS (6) Atrial fibrillation: s/p cardioversion 06/2020 continue metoprolol and Cardizem INR 2.6 today continue home regimen 5mg all days, except 7.5mg yesterday (last dose of 07/31) (7) Chronic respiratory failure with hypoxia, on home oxygen therapy: (8) Chronic obstructive pulmonary disease: Continue O2 to 3 L via NC Continue home inhalers As needed levalbuterol (9) Diastolic CHF, chronic: Echo on 06/2020 revealed EF 65 to 70%, severe LVH Continue metoprolol and Lasix resumed today Continue monitor for fluid overload Stable (10) Hyperlipidemia: Continue statin (11) Depression: Continue trazodone, effexor mood stable (12) Chronic back pain: Chronic back pain and fibromyalgia Continue fentanyl patch and prn oxycodone (13) DVT prophylaxis: Continue warfarin Disposition: Continue monitor in tele Admission and Anticipated Discharge Date Admission Date: August 01, 2020 Subjective Pt was seen and examined Lying in bed with no distress Pt said that she feels much better this morning She said that she thinks her BS might be low because she was feeling a little weird She said that she has not used any Zofran today Denies any chest pain, palpitation, dizziness and SOB Physical Exam Physical Exam: General- No acute distress Head- atraumatic Eyes- PERRL, EOMI, ENT- oropharynx clear Neck- supple, no JVD Lungs- clear to auscultation Heart- regular rhythm Abdomen- normal bowel sounds, soft, nontender Extremities- no calf tenderness Neuro- alert, oriented x 3; PERRL, EOMI; no facial palsy; no dysarthria Skin- warm & dry Results & Data Results & Data ([facility]) Vital Signs (Past 12 Hours) Vital Signs Temp Pulse Pulse Resp BP Pulse Ox 08/03/20 19:07 36.4 C L 62 22 147/85 H 94 08/03/20 15:13 36.6 C 51 L 20 120/74 95 08/03/20 12:00 61 (1) Compression fracture of T3 vertebra Encounter type: initial encounter Qualified Code(s): S22.030A - Wedge compression fracture of third thoracic vertebra, initial encounter for closed fracture
[2020-08-03] MEDS: ZOLPIDEM TARTRATE 5 MG TAB PO SCH (21:34)
[2020-08-03] MEDS: traZODone HCL 100 MG TAB PO SCH (21:34)
[2020-08-04] MEDS: CHECK fentaNYL PATCH PLACEMENT SCH ×2 (01:16→08:30)
[2020-08-04] MEDS: SODIUM CHLORIDE 0.9% 1000ML 1,000 ML IV SCH (08:24)
[2020-08-04] MEDS: INSULIN ASPART 100 UNITS/ML 3 ML PEN SC SCH ×2 (08:25→11:49)
[2020-08-04] MEDS: INSULIN GLARGINE SOLOSTAR 100 UNITS/ML 3 ML PEN SC SCH (08:26)
[2020-08-04] MEDS: FUROSEMIDE 40 MG in SYRINGE 0 ML IV SCH (08:27)
[2020-08-04] MEDS: METHOCARBAMOL 750 MG TABLET PO SCH ×2 (08:27→13:22)
[2020-08-04] MEDS: POTASSIUM CHLORIDE 10 MEQ TABCR PO SCH ×2 (08:27→13:22)
[2020-08-04] MEDS: PANTOprazole 40 MG TAB PO SCH (08:27)
[2020-08-04] MEDS: MULTIVITAMIN TAB PO SCH (08:27)
[2020-08-04] MEDS: GABAPENTIN 800 MG TAB PO SCH (08:27)
[2020-08-04] MEDS: METOPROLOL TARTRATE 100 MG TAB PO SCH (08:27)
[2020-08-04] MEDS: dilTIAZem HCL 120 MG CAPCR PO SCH (08:28)
[2020-08-04] MEDS: VENLAFAXINE HCL XR 75 MG CAPXR PO SCH (08:28)
[2020-08-04] MEDS: CHOLECALCIFEROL 1,000 UNITS 25 MCG TAB PO SCH (08:28)
[2020-08-04] MEDS: amLODIPine BESYLATE 5 MG TAB PO SCH (08:28)
[2020-08-04] MEDS: FLUTICASONE/VILANTEROL 200/25MCG 14 PUFFS/INHALER INH SCH (08:28)
[2020-08-04] MEDS: VENLAFAXINE HCL XR 150 MG CAPXR PO SCH (08:28)
[2020-08-04] MEDS: UMECLIDINIUM BROMIDE 62.5MCG/BLISTER 7 PUFFS/INHALER INH SCH (08:28)
[2020-08-04] MEDS: UREA (URE-NA) 15 GM PACK PO SCH (08:29)
[2020-08-04] MEDS: NICOTINE 14 MG/24 HR PATCH TD SCH (08:29)
[2020-08-04 08:32] LABS: INR 2.6 (0.9-1.1); Prothrombin Time 25.6 Seconds (9.0-12.0)
[2020-08-04] MEDS: oxyCODONE HCL IR 5 MG TAB (IMMEDIATE RELEASE) PO PRN (08:34)
[2020-08-04 09:08] LABS: BUN Creatinine Ratio 39.3 (10-20); Calcium 9.8 mg/dl (8.5-10.1); Creatinine Clr Calc Pharmacy 44.4 ml/min; Est GFR (African American) 43.6; Est GFR (Non-African American) 37.6
--- NOTE | 2020-08-04 10:15 | Progress Notes ---
DATE: 08/04/2020 SUBJECTIVE: Overnight, no new issues. Serum sodium continues to go up steadily. She denies having any new symptoms. OBJECTIVE: VITAL SIGNS: Blood pressure is 142/69, pulse rate 62, temperature 36.9, 96% on 4 liter nasal cannula. HEENT: Mucous membrane is moist. NECK: Supple. No jugular venous distention. CHEST: Bilateral decreased breath sounds, but clear. CARDIOVASCULAR: S1, S2 regular. ABDOMEN: Soft, nontender. EXTREMITIES: Shows no edema, although she has significant skin changes from edema in the past. LABORATORY TESTS: Sodium 136, potassium 4.0, bicarbonate 38, BUN 58, creatinine 1.47. WBC count 5.7, hemoglobin 12.5. ASSESSMENT AND PLAN: A 64-year-old female with very extensive medical problem list admitted with nausea, vomiting, poor appetite, back pain for the last 1-2 weeks and was found to have hyponatremia for which I have been consulted. Hyponatremia: This is multifactorial and not of simple case of hypovolemic hyponatremia. Because of this, it will not be easy to manage her hyponatremia situation. RECOMMENDATIONS FOR TODAY: 1. Given that serum sodium is now normal, I do want to stop the urea packet. 2. Stop IV fluid. 3. Continue Lasix 40 IV twice daily. 4. Continue fluid restriction 1200 mL per day. 5. At the time of discharge, I would stop the metolazone, but would continue with the Lasix and fluid restriction at 1500 mL per day. As long as serum sodium is more than 130, which should be reasonably satisfied. Followup with Nephrology 1-2 weeks after discharge.
--- NOTE | 2020-08-04 13:51 | Hospitalist Progress Note ---
Date of Service August 04, 2020 Assessment & Plan (1) Acute hyponatremia: Present on admission with recurrent diarrhea associated with nausea Na on admission 123 Possible related to diarrhea and diuresis and hypovolemia Na 136 today Nephrology on board case discussed with Nephrology Dr. Lara that recommended to d/c urea packet and IVF nephrology recommended on discharge to continue home dose lasix 80mg BID and to d/c metolazone No need for salt tablet due to CHF Continue fluid restriction at 1500 ml daily Goal for Sodium to be above 130 as per nephrology Check BMP in 1 week and follow up with nephrology in 1-2 weeks Ok from nephrology standpoint to discharge home (2) Acute hypokalemia: Mostly related to diuretic and diarrhea K 3.3 on admission Continue K supplement K today 4.0 Continue monitor BMP (3) Compression fracture of T3 vertebra: Status post fall 2 weeks ago Thoracic xray showed mild superior endplate compression deformity at T3 without retropulsion is favored to be chronic. Ortho on board recommended conservative management. No need for surgical intervention. No bracing due to the location of fracture. Limited lifting with her arms, pushing, pulling. continue prn Oxycodone Continue PT/OT Clinically improves (4) Diarrhea: Nausea KUB showed non obstructed abdominal bowel gas pattern. KUB: no active disease Diarrhea and nausea improve significantly Continue monitor electrolytes resolved (5) DM type 2 (diabetes mellitus, type 2): Last A1c 7.6 07/19/2020 On Lantus/NovoLog per protocol BS dropped to 78 today Continue monitor BS stable (6) Atrial fibrillation: s/p cardioversion 06/2020 continue metoprolol and Cardizem INR 2.6 today continue home regimen 5mg all days, except 7.5mg yesterday (last dose of 07/31) (7) Chronic respiratory failure with hypoxia, on home oxygen therapy: (8) Chronic obstructive pulmonary disease: Continue O2 to 3 L via NC Continue home inhalers As needed levalbuterol (9) Diastolic CHF, chronic: Echo on 06/2020 revealed EF 65 to 70%, severe LVH Continue metoprolol and Lasix resumed today Continue monitor for fluid overload Stable (10) Hyperlipidemia: Continue statin (11) Depression: Continue trazodone, effexor mood stable (12) Chronic back pain: Chronic back pain and fibromyalgia Continue fentanyl patch and prn oxycodone (13) DVT prophylaxis: Continue warfarin, INR 2.6 Disposition: Discharge home today Admission and Anticipated Discharge Date Admission Date: August 01, 2020 Subjective Pt was seen and examined Lying in bed with no distress Pt said that she feels much better She said that she does not have any nausea or diarrhea Denies any chest pain, palpitation, dizziness and SOB Physical Exam Physical Exam: General- No acute distress Head- atraumatic Eyes- PERRL, EOMI, ENT- oropharynx clear Neck- supple, no JVD Lungs- clear to auscultation Heart- regular rhythm Abdomen- normal bowel sounds, soft, nontender Extremities- no calf tenderness Neuro- alert, oriented x 3; PERRL, EOMI; no facial palsy; no dysarthria Skin- warm & dry Results & Data Results & Data ([facility]) Vital Signs (Past 12 Hours) Vital Signs Temp Pulse Pulse Resp BP BP Pulse Ox 08/04/20 12:01 37.0 C 60 18 139/74 95 08/04/20 08:00 36.9 C 62 18 142/69 H 96 08/04/20 07:36 58 L 08/04/20 03:07 36.4 C L 54 L 18 134/78 99 (1) Compression fracture of T3 vertebra Encounter type: initial encounter Qualified Code(s): S22.030A - Wedge compression fracture of third thoracic vertebra, initial encounter for closed fracture
--- NOTE | 2020-08-05 08:59 | Discharge Summary ---
Date of Service August 04, 2020 Admission HPI Per Admitting Provider This is a 64-year-old medically complex female with significant past medical history of chronic hypoxic respiratory failure on 3 L of O2, COPD, insulin- dependent T2DM, diabetic neuropathy, diabetic gastroparesis, PAF anticoagulated on warfarin, DARIUS on CPAP, chronic cor pulmonale, history of venous embolism, AAA HTN, CKD stage III, history of mitral valve repair, MDD who presents to ED secondary to nausea x2 weeks; diarrhea x2 days; worsening back pain x1 week. For significance patient recently hospitalized 07/02-07/05 secondary to atrial fibrillation with RVR. She will require cardioversion at that time and is continued to maintain sinus rhythm. Echocardiogram was performed which revealed EF 65 to 70%, severe LVH, flattened septum consistent with RV pressure overload, annuloplasty ring in mitral position, and mild MR. She was subsequently discharged home and seen again in ED on 07/18 status post fall. She was discharged home without any acute fracture. Since discharge she is overall not that well complaining of constant nausea and increased fatigue. Stating she sleeps most of the day. She does live alone at home and ambulates with assist device. She has noted over the past 3 weeks worsening nausea and approximately 1 week ago development of lower abdominal pain. Pain comes and goes and describes as a dull ache. Denies any exacerbating or relieving factors. Over the past 2 days she has exhibited diarrhea, 5 episodes so far today and 4 yesterday. She denies recent antibiotic use. She denies any melena or hematochezia. She further denies fever, chills, sweats, lightheadedness, d izziness, syncope, chest pain, shortness of breath at rest, palpitations, emesis, dysuria, increased urgency or frequency with urination. She does have a chronic dry cough at baseline secondary to COPD, this is unchanged. He does get intermittent shortness of breath with COPD and has experienced increased shortness of breath the last 2 days, but has felt her breathing was improved today. She does take daily nebulizer treatments. Besides nausea new onset diarrhea she also complains of significant back discomfort. It started approximately a week after the fall. Pain is located centrally in her mid back and does not radiate. She denies any numbness or tingling. Has been continuing to worsen. She has been taking oxycodone with mild relief. She is on chronic fentanyl patch. She was seen and evaluated in ED. She made hemodynamically stable saturating on 2 L of O2. Lab work consistent with hyponatremia, corrected at 125. Her potassium was 3.3, chloride 81, CO2 36, BUN 19, creatinine 1.48, glucose 181. Covid negative. Thoracic spine x-ray revealed T3 compression fracture, favored to be chronic. In ED she received 1 L of IVF. Admission Exam Per Admitting Provider Constitutional: WD/WN, chronically ill-appearing female, vitals as above, NAD, sitting up in bed, pleasant, conversing easily Head: Normocephalic, Atraumatic Eyes: PERRL, conjunctivae normal, anicteric sclerae ENMT: external ear and nose normal, oropharynx normal Neck: trachea midline, no thyromegaly normal visual inspection Respiratory: On 2 L O2 via NC, normal respiratory effort, lungs clear to auscultation, no wheeze, rales, rhonchi. Normal insp/exp effort, no accessory muscle use Cardiovascular: RRR, no murmur, no edema, bilateral venous stasis changes, vessels: no JVD or carotid bruit Chest: normal inspection of chest Abdomen: normal bowel sounds, soft, nontender, no hepatosplenomegaly Musculoskeletal: no cyanosis or clubbing, extremities motor strength 5/5, pinpoint tenderness to thoracic spinous processes Skin: Right medial knee ecchymosis, tender to palpation no rashes, warm and dry normal turgor Neurologic: PERRL, EOMI, accommodation nl, no face palsy, no dysarthria CN's II-XI intact bilaterally and moves all extremities Psychiatric: A+Ox3, euthymic affect Lymphatic: no cervical or axillary lymphadenopathy : deferred Principal Diagnosis Hyponatremia (Low Sodium) Acute hypokalemia (Low potassium) Compression fracture of T3 vertebra Diarrhea Nausea DM type 2 (diabetes mellitus, type 2) Atrial fibrillation: Chronic respiratory failure with hypoxia, on home oxygen therapy: Chronic obstructive pulmonary disease: Diastolic CHF, chronic: Hyperlipidemia: Discharge Exam General- No acute distress Head- atraumatic Eyes- PERRL, EOMI, ENT- oropharynx clear Neck- supple, no JVD Lungs- clear to auscultation Heart- regular rhythm Abdomen- normal bowel sounds, soft, nontender Extremities- no calf tenderness Neuro- alert, oriented x 3; PERRL, EOMI; no facial palsy; no dysarthria Skin- warm & dry Discharge Data Allergies Allergy/AdvReac Type Severity Reaction Status Date / Time bee venom protein (honey bee) Allergy Severe SWELLING Verified 07/26/20 10:43 lisinopril Allergy Intermediate FACE Verified 07/26/20 10:43 SWELLING potato Allergy Intermediate BBQ chips Verified 07/26/20 10:43 - facial swelling metronidazole Allergy Mild FACE Verified 07/26/20 10:43 SWELLING strawberry Allergy Mild HIVES Verified 07/26/20 10:43 alprazolam Allergy Unknown RED FACE, Verified 07/26/20 10:43 FACE SWELLING lactose AdvReac Intermediate VOMTING Verified 07/26/20 10:43 DIARRHEA ABDOMINAL PAIN-LACTOSE INTOLERANCE prednisone AdvReac Mild AGGRESSIVE Verified 07/26/20 10:43 BEHAVIOR colesevelam AdvReac Unknown unknown Verified 07/26/20 10:43 lithium AdvReac Unknown jitters Verified 07/26/20 10:43 Consultations 08/01/20 14:09 ED Decision to Admit Stat 08/01/20 16:00 Consult Case Management - Discharge Planning Routine Consult Nephrology Routine Consult Orthopedic Surgery Routine Ordered Studies XR lumbar spine min 4V routine, XR thoracic spine 3V routine HISTORY: 64 years-old Female Back pain s/p fall acute mid and low back pain status post fall COMPARISON: chest radiograph 07/03/2020, chest radiographs 05/31/2019, Lumbar spine MRI 10/04/2019 TECHNIQUE: 4 views of the thoracic spine and 5 views of the lumbar spine FINDINGS: THORACIC: Unchanged marked cardiomegaly with a neoplastic changes. Calcified plaque of the thoracic aorta. Reticular opacities of the lungs. Surgical clips project over the right upper chest. 12 rib-bearing thoracic-type vertebral segments are present. Minimal convex right curvature of the midthoracic spine. There is mild to moderate multilevel intervertebral disc space narrowing with spondylitic spurring and facet arthrosis. Minimal superior endplate compression at T3 without retropulsion, likely chronic. LUMBAR: Surgical clips project over the right upper quadrant and central abdomen. Calcified plaque of the abdominal aorta. Unremarkable soft tissues. 5 nonrib- bearing lumbar type vertebral segments are present. No spondylolysis or spondylolisthesis. Mild to moderate disc space narrowing at L5-S1 with mild multilevel intervertebral disc space narrowing and mild to moderate spondylitic spurring. Moderate to severe facet arthrosis at L4-L5 and L5-S1. IMPRESSION: 1. No definite acute fracture or subluxation of the thoracolumbar spine. 2. Mild superior endplate compression deformity at T3 without retropulsion is favored to be chronic. ACT 112: Negative or not required by law. The above report was generated using voice recognition software. It may contain grammatical, syntax or spelling errors. Electronically signed by: Ye Alva M.D. 08/01/2020 1:36 PM Dictated: 08/01/20 1331Transcribed: 08/01/20 1331 XR lumbar spine min 4V routine, XR thoracic spine 3V routine HISTORY: 64 years-old Female Back pain s/p fall acute mid and low back pain status post fall COMPARISON: chest radiograph 07/03/2020, chest radiographs 05/31/2019, Lumbar spine MRI 10/04/2019 TECHNIQUE: 4 views of the thoracic spine and 5 views of the lumbar spine FINDINGS: THORACIC: Unchanged marked cardiomegaly with a neoplastic changes. Calcified plaque of the thoracic aorta. Reticular opacities of the lungs. Surgical clips project over the right upper chest. 12 rib-bearing thoracic-type vertebral segments are present. Minimal convex right curvature of the midthoracic spine. There is mild to moderate multilevel intervertebral disc space narrowing with spondylitic spurring and facet arthrosis. Minimal superior endplate compression at T3 without retropulsion, likely chronic. LUMBAR: Surgical clips project over the right upper quadrant and central abdomen. Calcified plaque of the abdominal aorta. Unremarkable soft tissues. 5 nonrib- bearing lumbar type vertebral segments are present. No spondylolysis or spondylolisthesis. Mild to moderate disc space narrowing at L5-S1 with mild multilevel intervertebral disc space narrowing and mild to moderate spondylitic spurring. Moderate to severe facet arthrosis at L4-L5 and L5-S1. IMPRESSION: 1. No definite acute fracture or subluxation of the thoracolumbar spine. 2. Mild superior endplate compression deformity at T3 without retropulsion is favored to be chronic. ACT 112: Negative or not required by law. The above report was generated using voice recognition software. It may contain grammatical, syntax or spelling errors. Electronically signed by: Ye Alva M.D. 08/01/2020 1:36 PM Dictated: 08/01/20 1331Transcribed: 08/01/20 1331 PA CHEST WITH ABDOMINAL SERIES CLINICAL HISTORY: Generalized abdominal pain. Nausea. FINDINGS: 2 PA chest radiographs are compared to study dated 07/18/2020. The heart is enlarged noting atherosclerotic calcification of the thoracic aorta. There is evidence of previous cardiac valve surgery. Emphysema and chronic interstitial thickening is similar to previous. A small pulmonary herniation is again seen on the right. No large pleural effusion or pneumothorax is seen. The skeletal structures are osteopenic. The bony thorax is grossly intact. Supine and erect abdominal radiographs are correlated with abdominal CT dated 03/01/2019. Cholecystectomy clips are seen in the right upper quadrant. Surgical clips also project over the left groin. There is a nonobstructed abdominal bowel gas pattern. No evidence of intraperitoneal free air is seen. There are no abnormal abdominal calcifications. The lumbosacral spine and bony pelvis appear intact. IMPRESSION: 1. Cardiomegaly emphysema with diffuse interstitial thickening. This is similar to prior studies, and could represent pulmonary edema and/or an infectious/inflammatory pneumonitis. Clinical correlation will be required. 2. Nonobstructed abdominal bowel gas pattern. ACT 112: Negative or not required by law. Electronically signed by: Jame Batres M.D. 08/01/2020 1:35 PM Dictated: 08/01/20 1329Transcribed: 08/01/20 1329 Hospital Course (1) Acute hyponatremia: Present on admission with recurrent diarrhea associated with nausea Na on admission 123 Possible related to diarrhea and diuresis and hypovolemia Na 136 today Nephrology on board case discussed with Nephrology Dr. Lara that recommended to d/c urea packet and IVF nephrology recommended on discharge to continue home dose lasix 80mg BID and to d/c metolazone No need for salt tablet due to CHF Continue fluid restriction at 1500 ml daily Goal for Sodium to be above 130 as per nephrology Check BMP in 1 week and follow up with nephrology in 1-2 weeks Ok from nephrology standpoint to discharge home (2) Acute hypokalemia: Mostly related to diuretic and diarrhea K 3.3 on admission Continue K supplement K today 4.0 Continue monitor BMP (3) Compression fracture of T3 vertebra: Status post fall 2 weeks ago Thoracic xray showed mild superior endplate compression deformity at T3 without retropulsion is favored to be chronic. Ortho on board recommended conservative management. No need for surgical intervention. No bracing due to the location of fracture. Limited lifting with her arms, pushing, pulling. continue prn Oxycodone Continue PT/OT Clinically improves (4) Diarrhea: Nausea KUB showed non obstructed abdominal bowel gas pattern. KUB: no active disease Diarrhea and nausea improve significantly Continue monitor electrolytes resolved (5) DM type 2 (diabetes mellitus, type 2): Last A1c 7.6 07/19/2020 On Lantus/NovoLog per protocol BS dropped to 78 today Continue monitor BS stable (6) Atrial fibrillation: s/p cardioversion 06/2020 continue metoprolol and Cardizem INR 2.6 today continue home regimen 5mg all days, except 7.5mg yesterday (last dose of 07/31) (7) Chronic respiratory failure with hypoxia, on home oxygen therapy: (8) Chronic obstructive pulmonary disease: Continue O2 to 3 L via NC Continue home inhalers As needed levalbuterol (9) Diastolic CHF, chronic: Echo on 06/2020 revealed EF 65 to 70%, severe LVH Continue metoprolol and Lasix resumed today Continue monitor for fluid overload Stable (10) Hyperlipidemia: Continue statin (11) Depression: Continue trazodone, effexor mood stable (12) Chronic back pain: Chronic back pain and fibromyalgia Continue fentanyl patch and prn oxycodone (13) DVT prophylaxis: Continue warfarin, INR 2.6 Disposition: Discharge home today Total Time Total Time Spent Total Time Spent (In Minutes): 35 minutes Total Time Includes: Examination of the Patient, Discharge Planning, Medication Reconciliation, Communication With Other Providers and Other Discharge Plan Discharge Items Patient Disposition: Home - Home Health Services Reason For Visit: HYPONATREMIA, T3 COMPRESSION FRACTURE Discharge Diagnosis: Hyponatremia (Low Sodium) Acute hypokalemia (Low potassium) Compression fracture of T3 vertebra Diarrhea Nausea DM type 2 (diabetes mellitus, type 2) Atrial fibrillation: Chronic respiratory failure with hypoxia, on home oxygen therapy: Chronic obstructive pulmonary disease: Diastolic CHF, chronic: Hyperlipidemia: Activity: Resume your previous activity Non-emergency contact: Primary Care Provider Call non-emergency contact if: you have any medication questions Follow-up/Referrals: Manoj Goins DO [Primary Care Provider] - (Date & Time 08/09/2020 11:20 AM Provider Manoj Goins DO Department General Internal Medicine [facility] ) Diet: Heart Healthy Addtl Attending Provider Instructions: Follow up with your primary care provider Dr. Goins on 08/09/20 @ 11:20 AM Follow up with nephrology in 1-2 weeks (Please call to schedule for the appointment) Follow up with the coumadin clinic to monitor your PT/INR Check BMP in 1 week to monitor electrolytes and renal function Continue fluid restriction 1500ml daily Fall precaution Continue oxygen supplement Counseling on smoking cessation Pending Studies at Discharge: No Stand-Alone Forms: My [facility], Smoking Cessation Medications and DC Order Prescriptions: Continued gabapentin 800 mg Tablet 800 mg PO BID RF: 0 diclofenac sodium 1 % Gel 2 g TOPICAL QID PRN (Reason: Pain) RF: 0 alendronate 70 mg tablet 70 mg PO WE RF: 0 warfarin 5 mg tablet 7.5 mg PO WK RF: 0 diltiazem HCl 120 mg capsule,extended release 24hr 120 mg PO QAM RF: 0 potassium chloride 10 mEq tablet extended release 10 meq PO TID RF: 0 pantoprazole 40 mg tablet,delayed release (DR/EC) 40 mg PO QAM RF: 0 Lantus U-100 Insulin 100 unit/mL solution 18 unit SUBCUT BID RF: 0 metoprolol tartrate 50 mg Tablet 100 mg PO BID Qty: 120 RF: 2 amlodipine 5 mg tablet 5 mg PO DAILY RF: 0 oxycodone 10 mg tablet 10 mg PO Q6 PRN (Reason: Pain) RF: 0 nitroglycerin [Nitrostat] 0.4 mg tablet, sublingual 0.4 mg sublingual DIRECTED PRN (Reason: Chest Pain) RF: 0 multivitamin Tablet 1 tab PO QAM RF: 0 furosemide 40 mg Tablet 80 mg PO BID RF: 0 atorvastatin 40 mg Tablet 40 mg PO HS RF: 0 fentanyl 50 mcg/hr Patch 72 Hour 50 mcg TRANSDERMAL [id number] RF: 0 cetirizine 10 mg Tablet 10 mg PO HS RF: 0 venlafaxine 150 mg Capsule,Extended Release 24hr 150 mg PO QAM RF: 0 ondansetron 8 mg Tablet,Disintegrating 8 mg PO BID PRN (Reason: Nausea) RF: 0 methocarbamol 750 mg Tablet 750 mg PO TID RF: 0 warfarin 5 mg Tablet 5 mg PO [id number] RF: 0 epinephrine [EpiPen] 0.3 mg/0.3 mL Auto-Injector 0.3 mg IM DIRECTED PRN (Reason: Allergic Reaction) RF: 0 docusate sodium 100 mg Tablet 100 mg PO DAILY PRN (Reason: Constipation) RF: 0 Spiriva with HandiHaler 18 mcg Capsule, W/Inhalation Device 1 cap INHALATION QAM RF: 0 cholecalciferol (vitamin D3) [Vitamin D3] 1,000 unit Tablet 1,000 unit PO QAM RF: 0 venlafaxine 75 mg Capsule,Extended Release 24hr 75 mg PO QAM RF: 0 trazodone 100 mg Tablet 200 mg PO HS RF: 0 zolpidem 5 mg Tablet 5 mg PO HS RF: 0 levalbuterol HCl 1.25 mg/3 mL solution for nebulization 1.25 mg INHALATION Q4H PRN (Reason: Wheezing) RF: 0 albuterol sulfate [Proventil HFA] 90 mcg/actuation HFA aerosol inhaler 2 puffs INH Q6H PRN (Reason: Shortness Of Breath Or Wheezing) RF: 0 fluticasone propion-salmeterol [Wixela Inhub] 250-50 mcg/dose blister with device 1 inh INHALATION BID RF: 0 Discharge Orders: Discharge Order (Routine); Ordered 08/04/20 Ordered By: Elise Guillaume Admission Data Admit Date/Time: 08/01/20 14:44 Attending Provider: Elise Guillaume Admit Provider: Lizeth Martin Primary Care Provider: Manoj Goins Other Providers: Onur Lara ; Joce Heard ; Lizeth Martin ; [facility] Other Interventions: Discharge Summary Assessment (RN) Last Done: 08/04/20 14:16
[2020-08-07] MEDS ORDERED: WARFARIN SOD 7.5 MG TAB PO SCH (16:00)
== END 2020-08-04 15:20 | disposition home health service (06) | DRG 641 ==
LOC: ED 10:39 → 1E 14:44 → SUATTDRO 14:44 → 1E 15:30 → 2S 08-03 14:06

== ENCOUNTER 2020-10-20 20:42 | Inpatient (IN) ==
[2020-10-20] MEDS ORDERED: PROCHLORPERAZINE 2 ML IV ONE (21:07)
[2020-10-20] MEDS ORDERED: diphenhydrAMINE 50 MG/ML VIAL IV STA (21:07)
[2020-10-20] MEDS ORDERED: MAGNESIUM SULFATE / D5W 1 GM/100 ML BAG IV STA (21:08)
--- NOTE | 2020-10-20 21:14 | Emergency Department Note ---
History of Present Illness General Chief complaint: Headache Stated complaint: +COVID/CHEST PAIN; EYE PAIN Time Seen by Provider: 10/20/20 20:50 Source: patient and EMS Mode of arrival: EMS History of Present Illness Provider complaint: Headache Onset (ago): day(s) 3 Location: head and right Severity: severe Pain Consistency: + constant Maximum Pain Intensity: 9 Quality: + stabbing Relieved By: + none Exacerbated By: + other (Bright lights) Associated symptoms: + chest pain, + cough and + shortness of breath (Mild); no fever/chills and no nausea/vomiting This is a 65-year-old female with a history of migraine headaches and on warfarin presenting with a headache for the past 3 days. She states the he adache is located on the right side of her head behind her eyes and going to the back of her head. She describes it as sharp and stabbing. She states it is worse with light. She rates it a 9 out of 10 in severity. She does have a history of migraines but states that she has not had a migraine in several years. She denies any injury or fall. She denies any visual problems or numbness or weakness in the extremities. She does also state that she has had some chest pain for the past several days. She describes it as a heaviness in the middle of her chest without radiation. She has some mild shortness of breath. She states that she did have a cardiac catheterization years ago which did not show any significant blockage. She does not know exactly when that catheterization was. She was diagnosed with COVID-19 about a week ago but denies any fevers, loss of taste or smell or diarrhea. She has had a cough. She denies abdominal pain or vomiting. Home Medications Medication Instructions Recorded Confirmed Type Spiriva with HandiHaler 1 cap INHALATION QA 06/19/18 10/09/20 History atorvastatin 40 mg PO HS 06/19/18 10/09/20 History cetirizine 10 mg PO HS 06/19/18 10/09/20 History cholecalciferol (vitamin D3) 1,000 unit PO QAM 06/19/18 10/09/20 History [Vitamin D3] docusate sodium 100 mg PO DAILY PRN 06/19/18 10/09/20 History epinephrine [EpiPen] 0.3 mg IM DIRECTED PRN 06/19/18 10/09/20 History fentanyl 50 mcg TRANSDERMAL [id number] 06/19/18 10/09/20 History furosemide 80 mg PO BID 06/19/18 10/09/20 History methocarbamol 750 mg PO TID 06/19/18 10/09/20 History multivitamin 1 tab PO QAM 06/19/18 10/09/20 History ondansetron 8 mg PO BID PRN 06/19/18 10/09/20 History venlafaxine 150 mg PO QAM 06/19/18 10/09/20 History warfarin 5 mg PO 6XWK 06/19/18 10/09/20 History trazodone 200 mg PO HS 09/14/18 10/09/20 History venlafaxine 75 mg PO QAM 09/14/18 10/09/20 History zolpidem 5 mg PO HS 09/14/18 10/09/20 History diclofenac sodium 2 g TOPICAL QID PRN 05/28/19 10/09/20 History gabapentin 800 mg PO BID 05/28/19 10/09/20 History alendronate 70 mg tablet 70 mg PO WK tab 06/10/19 10/09/20 History warfarin 7.5 mg PO WK 09/19/19 10/09/20 History Lantus U-100 Insulin 18 unit SUBCUT BID 03/02/20 10/09/20 History diltiazem HCl 120 mg PO QAM 03/02/20 10/09/20 History metoprolol tartrate 100 mg PO BID #120 tab 03/02/20 10/09/20 Rx pantoprazole 40 mg PO QAM 03/02/20 10/09/20 History potassium chloride 10 meq PO TID 03/02/20 10/09/20 History albuterol sulfate [Proventil HFA] 2 puffs INH Q6H PRN 03/24/20 10/09/20 History levalbuterol HCl 1.25 mg INHALATION Q4H PRN 03/24/20 10/09/20 History amlodipine 5 mg PO QAM 05/15/20 10/09/20 History nitroglycerin [Nitrostat] 0.4 mg SUBLINGUAL DIRECTED PRN 07/02/20 10/09/20 History oxycodone 10 mg PO Q6 PRN 07/02/20 10/09/20 History fluticasone propion-salmeterol 1 inh INHALATION BID 08/01/20 10/09/20 History [Advair Diskus] prednisone 20 mg tablet 20 mg PO QAM 09/12/20 10/09/20 History Allergies Allergy/AdvReac Type Severity Reaction Status Date / Time bee venom protein (honey bee) Allergy Severe SWELLING Verified 10/09/20 10:14 lisinopril Allergy Intermediate FACE Verified 10/09/20 10:14 SWELLING potato Allergy Intermediate BBQ chips Verified 10/09/20 10:14 - facial swelling metronidazole Allergy Mild FACE Verified 10/09/20 10:14 SWELLING strawberry Allergy Mild HIVES Verified 10/09/20 10:14 alprazolam Allergy Unknown RED FACE, Verified 10/09/20 10:14 FACE SWELLING lactose AdvReac Intermediate VOMTING Verified 10/09/20 10:14 DIARRHEA ABDOMINAL PAIN-LACTOSE INTOLERANCE prednisone AdvReac Mild AGGRESSIVE Verified 10/09/20 10:14 BEHAVIOR colesevelam AdvReac Unknown unknown Verified 10/09/20 10:14 lithium AdvReac Unknown jitters Verified 10/09/20 10:14 Past Med/Surg History Medical History Anxiety Asthma 3LPM via n/c mostly continuous (although patient states she does not wear this all the time) Atrial fibrillation a. fib/a. flutter s/p cardioversion (2016) Lynn esophagus Bipolar disorder Chronic back pain Chronic cor pulmonale Chronic kidney disease stage III Chronic obstructive pulmonary disease 3LPM via n/c mostly continuous (although patient states she does not wear this all the time) COVID-19 virus detected + 10/11/20 CVA (cerebral vascular accident) 2004 (per records; patient denies) Degeneration of cervical intervertebral disc Depression Diastolic CHF, chronic DM type 2 (diabetes mellitus, type 2) Fibromyalgia Gastroparesis GERD (gastroesophageal reflux disease) History of cardioversion History of Clostridium difficile infection History of DVT (deep vein thrombosis) left "hand" 2004- on AC HTN (hypertension) Hyperlipidemia Hypothyroidism no current medication per doctor orders. 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 Obesity Obstructive sleep apnea treated with BiPAP cpap night Osteoarthritis Peripheral neuropathy Post traumatic stress disorder Surgical History History of adenoidectomy History of appendectomy LAPAROSCOPY History of cardiac cath 2005= no stents History of carpal tunnel release left History of cataract surgery BILATERAL History of cholecystectomy LAPAROSCOPY History of colonoscopy History of esophagogastroduodenoscopy (EGD) History of hysterectomy EMIGDIO WITH BSO History of mitral valve repair 2005 + resection fibroelastoma History of tonsillectomy Hx of lumpectomy right breast BENIGN Hx of tubal ligation Hx of umbilical hernia repair S/P trigger finger release RIGHT/LEFT Family History Mother Family history of diabetes mellitus Sister Family history of diabetes mellitus Ulcerative colitis Social History Smoking Status: Current every day smoker Tobacco Type: Cigarettes Cigarettes Per Day: 5-10; Second Hand Exposure: Yes; Hx Alcohol Use: No Hx Substance Use: Yes Preferred Language: Citizen Of [place] Communication Ability: Effective Visual Impairment: No 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 and A total of 10 systems reviewed and were otherwise negative Physical Exam Vital Signs Vital Signs - 24 hr 10/20/20 20:54 10/20/20 20:58 10/20/20 21:00 Temperature 37.3 C Temperature Source Oral Pulse Rate 65 63 65 Pulse Rate from SpO2 Sensor 64 62 64 Respiratory Rate 20 22 18 Respiratory Effort / Characteristics Non-Labored Spontaneous Respiratory Depth Normal Blood Pressure 127/78 Blood Pressure Mean 94 Pulse Oximetry 99 100 98 Oxygen Delivery Method Nasal Cannula Oxygen Flow Rate 2 Sepsis New/Unexplained Change in Mental Status N/A Sepsis Action Taken by Nursing No Action Required 10/20/20 21:30 10/20/20 22:00 10/20/20 22:30 Temperature Temperature Source Pulse Rate 61 63 60 Pulse Rate from SpO2 Sensor 63 62 60 Respiratory Rate 17 18 17 Respiratory Effort / Characteristics Respiratory Depth Blood Pressure 122/65 Blood Pressure Mean 84 Pulse Oximetry 96 98 98 Oxygen Delivery Method Oxygen Flow Rate Sepsis New/Unexplained Change in Mental Status Sepsis Action Taken by Nursing Constitutional: Vital signs reviewed. Eyes: Pupils are equal round reactive to light. Conjunctiva are noninjected. ENT: Pharynx is clear without erythema or exudate. Mucous membranes are moist. Neck supple without meningeal signs. Respiratory: Clear to auscultation bilaterally. Breath sounds are equal bilaterally. Cardiovascular: Regular rate and rhythm. No rubs or gallops. GI: Soft, nondistended and nontender. Bowel sounds are present. Musculoskeletal: No peripheral edema. No lower extremity tenderness. Integumentary: No cyanosis. or jaundice. Neurologic: The patient is awake and alert. Cranial nerves II-XII are intact. Motor is 5 out of 5 all extremities. Sensation is intact to light touch all extremities. Normal speech. No pronator drift. No limb ataxia. Psychiatric: Normal affect. Not anxious appearing. Course Administered Medications Discontinued Medications Diphenhydramine HCl (Diphenhydramine 50 Mg/Ml Vial) 25 mg IV NOW STA Stop: 10/20/20 21:08 Last Admin: 10/20/20 21:52 Dose: 25 mg Documented by: [id number] Prochlorperazine (Compazine) 2 mls @ 1 mls/min IV ONE ONE Stop: 10/20/20 21:08 Last Admin: 10/20/20 21:52 Dose: 1 mls/min Documented by: [id number] Magnesium Sulfate/Dextrose (Magnesium Sulfate / D5w) 1 gm in 100 mls @ 100 mls/hr IV NOW STA Stop: 10/20/20 22:07 Last Infusion: 10/20/20 22:53 Dose: 0 mls/hr Documented by: [id number] Admin: 10/20/20 21:52 Dose: 100 mls/hr Documented by: [id number] Sodium Chloride (Nss 1000ml) 500 mls @ 999 mls/hr IV .Q31M ONE Stop: 10/20/20 22:44 Last Infusion: 10/20/20 23:05 Dose: 0 mls/hr Documented by: [id number] Admin: 10/20/20 22:27 Dose: 999 mls/hr Documented by: [id number] Medical Decision Making Differential Diagnosis Migraine headache, tension headache, intracranial hemorrhage, supratherapeutic INR, pleurisy, pneumonia, [place] Medical Records Attestation: I reviewed the patient's medical records. I did perform a limited focused review of portions of the patient's old chart on the electronic medical record. The patient was admitted to the hospital for a T3 compression fracture as well as COPD exacerbation and electrolyte abnormalities in July of last year. Home Medications Current Medication List: was personally reviewed by me Laboratory Data Attestation: I reviewed the patient's lab results. Result diagrams: 10/20/20 20:07 10/20/20 20:07 Lab Results 10/20/20 10/20/20 10/20/20 Range/Units 20:07 20:07 20:07 WBC 8.22 (4.8-10.8) K/uL RBC 4.54 (4.2-5.4) M/uL Hgb 13.4 (12.0-16.0) g/dL Hct 40.5 (37-47) % MCV 89.2 (80-100) fL MCH 29.5 (25-34) pg MCHC 33.1 (32-36) g/dL RDW Std Deviation 45.4 (36.4-46.3) fL RDW Coeff of King 13.8 (11.5-14.5) % Plt Count 292 (130-400) K/uL MPV 10.2 (7.4-10.4) fL Immature Gran % (Auto) 0.1 % Neut % (Auto) 79.5 % Lymph % (Auto) 14.5 % [place] % (Auto) 5.8 % Eos % (Auto) 0.0 % Baso % (Auto) 0.1 % Neut # (Auto) 6.53 H (1.4-6.5) K/uL Lymph # (Auto) 1.19 L (1.2-3.4) K/uL [place] # (Auto) 0.48 (0.11-0.59) K/uL Eos # (Auto) 0.00 (0-0.5) K/uL Baso # (Auto) 0.01 (0-0.2) K/uL Immature Gran # (Auto) 0.01 (0.00-0.02) K/uL PT (9.0-12.0) Seconds INR (0.9-1.1) APTT (21.0-31.0) Seconds PTT Ratio D-Dimer < 190 (0-500) ug/L FEU Sodium 132 L (136-145) mmol/L Potassium 4.1 (3.5-5.1) mmol/L Chloride 98 (98-107) mmol/L Carbon Dioxide 28 (21-32) mmol/L Anion Gap 6.0 (3-11) BUN 28 H (7-18) mg/dl Creatinine 1.78 H (0.6-1.2) mg/dl Est Cr Clr Drug Dosing 37.8 ml/min Est GFR ( Amer) 34.3 Est GFR (Non-Af Amer) 29.6 BUN/Creatinine Ratio 15.5 (10-20) Glucose 287 H (70-99) mg/dl Calcium 9.7 (8.5-10.1) mg/dl Total Bilirubin 0.4 (0.2-1) mg/dl AST 19 (15-37) U/L ALT 33 (12-78) U/L Alkaline Phosphatase 70 (45-117) U/L Troponin I < 0.015 (0-0.045) ng/ml C-Reactive Protein < 0.29 (0-0.29) mg/dl Total Protein 7.4 (6.4-8.2) gm/dl Albumin 3.1 L (3.4-5.0) gm/dl Globulin 4.3 H (2.5-4.0) gm/dl Albumin/Globulin Ratio 0.7 L (0.9-2) Lipase 89 (73-393) U/L 10/20/20 Range/Units 20:07 WBC (4.8-10.8) K/uL RBC (4.2-5.4) M/uL Hgb (12.0-16.0) g/dL Hct (37-47) % MCV (80-100) fL MCH (25-34) pg MCHC (32-36) g/dL RDW Std Deviation (36.4-46.3) fL RDW Coeff of King (11.5-14.5) % Plt Count (130-400) K/uL MPV (7.4-10.4) fL Immature Gran % (Auto) % Neut % (Auto) % Lymph % (Auto) % [place] % (Auto) % Eos % (Auto) % Baso % (Auto) % Neut # (Auto) (1.4-6.5) K/uL Lymph # (Auto) (1.2-3.4) K/uL [place] # (Auto) (0.11-0.59) K/uL Eos # (Auto) (0-0.5) K/uL Baso # (Auto) (0-0.2) K/uL Immature Gran # (Auto) (0.00-0.02) K/uL PT 33.9 H (9.0-12.0) Seconds INR 3.7 H (0.9-1.1) APTT 43.0 H (21.0-31.0) Seconds PTT Ratio 1.6 D-Dimer (0-500) ug/L FEU Sodium (136-145) mmol/L Potassium (3.5-5.1) mmol/L Chloride (98-107) mmol/L Carbon Dioxide (21-32) mmol/L Anion Gap (3-11) BUN (7-18) mg/dl Creatinine (0.6-1.2) mg/dl Est Cr Clr Drug Dosing ml/min Est GFR ( Amer) Est GFR (Non-Af Amer) BUN/Creatinine Ratio (10-20) Glucose (70-99) mg/dl Calcium (8.5-10.1) mg/dl Total Bilirubin (0.2-1) mg/dl AST (15-37) U/L ALT (12-78) U/L Alkaline Phosphatase (45-117) U/L Troponin I (0-0.045) ng/ml C-Reactive Protein (0-0.29) mg/dl Total Protein (6.4-8.2) gm/dl Albumin (3.4-5.0) gm/dl Globulin (2.5-4.0) gm/dl Albumin/Globulin Ratio (0.9-2) Lipase (73-393) U/L Imaging Data Radiologist's Impression: XR chest 1V portable HISTORY: 65 years-old Female Chest Pain . Chest pain COMPARISON: Acute abdominal series radiographs 08/01/2020 TECHNIQUE: Portable AP view of the chest FINDINGS: Cardiac silhouette is enlarged. Calcified plaque the thoracic aorta. Emphysema. Cardiac valvular prosthesis. Progressively worsened interstitial coarsening with pulmonary vascular congestion. Probable trace pleural effusions. No pneumothorax. Degenerative changes of the shoulders and spine. IMPRESSION: 1. Cardiomegaly with pulmonary vascular congestion and bilateral reticular opacities suggestive of pulmonary edema versus interstitial pneumonitis. 2. Trace pleural effusions. 3. Emphysema with chronic interstitial coarsening. ACT 112: Negative or not required by law. The above report was generated using voice recognition software. It may contain grammatical, syntax or spelling errors. Electronically signed by: Ye Alva M.D. 10/20/2020 10:24 PM Dictated: 10/20/202222 Transcribed: 10/20/202222 Preliminary Findings Only See Final Report For Complete Findings CT HEAD: No acute intracranial hemorrhage. Stable regions of bifrontal encephalomalacia again noted, not significant change since at least 2013. No mass-effect or midline shift. No skull fracture. Vascular calcification of the vertebral and internal carotid arteries. Visualized paranasal sinuses and mastoid air cells are clear. CT head 05/14/2014 utilized for comparison Radiologist: Deni Laura MD Study ready at 23:30 and initial results transmitted at 23:59 ECG Data Attestation: I personally reviewed and interpreted this ECG as follows: Indication: + chest pain Rate (beats per minute): 68 Rhythm: + normal sinus ECG Intervals/blocks: + Right Bundle branch block ECG ST segments: + T-wave inversions ECG Findings: no PVCs Comparison ECG Date: from (August 01, 2020) Change: no significant change MDM Narrative I did evaluate the patient as noted above. The patient is presenting with headache and chest pain in the setting of COVID-19 infection. She was placed in respiratory isolation. IV access was established. I did treat the patient with IV Compazine, Benadryl and magnesium. I did place an order for continuous cardiac monitoring. The monitor showed normal sinus rhythm at a rate of 64 bpm. I did order and personally review the patient's 12-lead EKG as described above. She has an old right bundle branch block. No acute ischemic changes. I did order and personally reviewed the images of the patient's chest x-ray as described above. There is no evidence of pneumonia. There are trace pleural effusions. I did order a urine analysis. I did order and review the patient's blood work as noted in the electronic medical record. CBC is unremarkable without leukocytosis or anemia. She has chronic hyponatremia with a sodium of 132. Creatinine is elevated at 1.78. Glucose is 287. Troponin is negative. D-dimer is less than 190. INR is 3.7. I did order a CT of the head. I did review the images myself as well as the radiology report as described above. There is no evidence of acute intracranial abnormality. I did reassess the patient. She states her headache is significantly better. She does not have any chest discomfort at this time. I did discuss the test results with her and recommended hospitalization for further care and evaluation. I did discuss case with the hospitalist and caser up. Impression & Plan Acute chest pain, Chronic kidney disease, COVID-19 virus infection, Acute headache, Supratherapeutic INR, Chronic hyponatremia, Acute hyperglycemia Discharge Plan Visit Data Chief Complaint: Headache Stated Complaint: +COVID/CHEST PAIN; EYE PAIN ED Provider: Sree Garcia Discharge Problem: Acute chest pain, Chronic kidney disease, COVID-19 virus infection, Acute headache, Supratherapeutic INR, Chronic hyponatremia, Acute hyperglycemia Patient Disposition: Being Evaluated by Hospitalist Forms Stand Alone Forms: My [facility] [address] Prescriptions Prescriptions: No Action prednisone 20 mg tablet 20 mg PO QAM RF: 0 gabapentin 800 mg Tablet 800 mg PO BID RF: 0 diclofenac sodium 1 % Gel 2 g TOPICAL QID PRN (Reason: Pain) RF: 0 alendronate 70 mg tablet 70 mg PO WK RF: 0 warfarin 5 mg tablet 7.5 mg PO WK RF: 0 diltiazem HCl 120 mg capsule,extended release 24hr 120 mg PO QAM RF: 0 potassium chloride 10 mEq tablet extended release 10 meq PO TID RF: 0 pantoprazole 40 mg tablet,delayed release (DR/EC) 40 mg PO QAM RF: 0 Lantus U-100 Insulin 100 unit/mL solution 18 unit SUBCUT BID RF: 0 metoprolol tartrate 50 mg Tablet 100 mg PO BID Qty: 120 RF: 2 amlodipine 5 mg tablet 5 mg PO QAM RF: 0 oxycodone 10 mg tablet 10 mg PO Q6 PRN (Reason: Pain) RF: 0 nitroglycerin [Nitrostat] 0.4 mg tablet, sublingual 0.4 mg sublingual DIRECTED PRN (Reason: Chest Pain) RF: 0 multivitamin Tablet 1 tab PO QAM RF: 0 furosemide 40 mg Tablet 80 mg PO BID RF: 0 atorvastatin 40 mg Tablet 40 mg PO HS RF: 0 fentanyl 50 mcg/hr Patch 72 Hour 50 mcg TRANSDERMAL [id number] RF: 0 cetirizine 10 mg Tablet 10 mg PO HS RF: 0 venlafaxine 150 mg Capsule,Extended Release 24hr 150 mg PO QAM RF: 0 ondansetron 8 mg Tablet,Disintegrating 8 mg PO BID PRN (Reason: Nausea) RF: 0 methocarbamol 750 mg Tablet 750 mg PO TID RF: 0 warfarin 5 mg Tablet 5 mg PO 6XWK RF: 0 epinephrine [EpiPen] 0.3 mg/0.3 mL Auto-Injector 0.3 mg IM DIRECTED PRN (Reason: Allergic Reaction) RF: 0 docusate sodium 100 mg Tablet 100 mg PO DAILY PRN (Reason: Constipation) RF: 0 Spiriva with HandiHaler 18 mcg Capsule, W/Inhalation Device 1 cap INHALATION QAM RF: 0 cholecalciferol (vitamin D3) [Vitamin D3] 1,000 unit Tablet 1,000 unit PO QAM RF: 0 venlafaxine 75 mg Capsule,Extended Release 24hr 75 mg PO QAM RF: 0 trazodone 100 mg Tablet 200 mg PO HS RF: 0 zolpidem 5 mg Tablet 5 mg PO HS RF: 0 levalbuterol HCl 1.25 mg/3 mL solution for nebulization 1.25 mg INHALATION Q4H PRN (Reason: Wheezing) RF: 0 albuterol sulfate [Proventil HFA] 90 mcg/actuation HFA aerosol inhaler 2 puffs INH Q6H PRN (Reason: Shortness Of Breath Or Wheezing) RF: 0 fluticasone propion-salmeterol [Advair Diskus] 250-50 mcg/dose blister with device 1 inh INHALATION BID RF: 0 Referrals Referrals: Manoj Goins DO [Primary Care Provider] - Discharge Problem: Chronic kidney disease Qualifiers: Chronic kidney disease stage: unspecified stage Qualified Code(s): N18.9 - Chronic kidney disease, unspecified Acute headache Qualifiers: Headache type: unspecified Intractability: not intractable Qualified Code(s): R51.9 - Headache, unspecified
[2020-10-20 21:26] LABS: Basophils # (auto) 0.01 K/uL (0-0.2); Basophils % (auto) 0.1 %; Hematocrit (blood only) 40.5 % (37-47); Hemoglobin 13.4 g/dL (12.0-16.0); Immature Granulocytes # (auto) 0.01 K/uL (0.00-0.02); Immature Granulocytes % (auto) 0.1 %; Lymphocytes # (auto) 1.19 K/uL (1.2-3.4); Lymphocytes % (auto) 14.5 %; Mean Corpuscular Hemoglobin 29.5 pg (25-34); Mean Corpuscular Hgb Conc 33.1 g/dL (32-36); Mean Corpuscular Volume 89.2 fL (80-100); Mean Platelet Volume 10.2 fL (7.4-10.4); Monocytes # (auto) 0.48 K/uL (0.11-0.59); Monocytes % (auto) 5.8 %; Neutrophils # (auto) 6.53 K/uL (1.4-6.5); Neutrophils % (auto) 79.5 %; Platelet Count 292 K/uL (130-400); RDW Coefficient of Variation 13.8 % (11.5-14.5); RDW Standard Deviation 45.4 fL (36.4-46.3); Red Blood Count 4.54 M/uL (4.2-5.4); White Blood Count 8.22 K/uL (4.8-10.8)
[2020-10-20 21:35] LABS: Alanine Aminotransferase 33 U/L (12-78); Albumin Level 3.1 gm/dl (3.4-5.0); Aspartate Aminotransferase 19 U/L (15-37); BUN Creatinine Ratio 15.5 (10-20); Blood Urea Nitrogen 28 mg/dl (7-18); C Reactive Protein < 0.29 mg/dl (0-0.29); Calcium 9.7 mg/dl (8.5-10.1); Carbon Dioxide 28 mmol/L (21-32); Chloride 98 mmol/L (98-107); Creatinine Clr Calc Pharmacy 37.8 ml/min; Est GFR (African American) 34.3; Est GFR (Non-African American) 29.6; Glucose 287 mg/dl (70-99); Lipase 89 U/L (73-393); Potassium 4.1 mmol/L (3.5-5.1); Sodium 132 mmol/L (136-145)
[2020-10-20 21:40] LABS: Albumin Globulin Ratio 0.7 (0.9-2); Alkaline Phosphatase 70 U/L (45-117); Bilirubin,Total 0.4 mg/dl (0.2-1); Globulin 4.3 gm/dl (2.5-4.0); Total Protein 7.4 gm/dl (6.4-8.2); Troponin I < 0.015 ng/ml (0-0.045)
[2020-10-20 22:02] LABS: D Dimer < 190 ug/L FEU (0-500)
[2020-10-20] MEDS ORDERED: SODIUM CHLORIDE 0.9% 1000ML 500 ML IV ONE (22:14)
--- NOTE | 2020-10-20 22:26 | XRay Report ---
XR chest 1V portable HISTORY: 65 years-old Female Chest Pain . Chest pain COMPARISON: Acute abdominal series radiographs 08/01/2020 TECHNIQUE: Portable AP view of the chest FINDINGS: Cardiac silhouette is enlarged. Calcified plaque the thoracic aorta. Emphysema. Cardiac valvular pros thesis. Progressively worsened interstitial coarsening with pulmonary vascular congestion. Probable t race pleural effusions. No pneumothorax. Degenerative changes of the shoulders and spine. IMPRESSION: 1. Cardiomegaly with pulmonary vascular congestion and bilateral reticular opacities suggestive of pu lmonary edema versus interstitial pneumonitis. 2. Trace pleural effusions. 3. Emphysema with chronic interstitial coarsening. ACT 112: Negative or not required by law. The above report was generated using voice recognition software. It may contain grammatical, syntax o r spelling errors. Electronically signed by: Ye Alva M.D. 10/20/2020 10:24 PM
[2020-10-20 23:08] LABS: INR 3.7 (0.9-1.1); Partial Thromboplastin Ratio 1.6; Prothrombin Time 33.9 Seconds (9.0-12.0)
[2020-10-21] MEDS ORDERED: ONDANSETRON 8MG OD TAB PO PRN (06:19)
[2020-10-21] MEDS ORDERED: NITROGLYCERIN SL 0.4 MG/TAB TAB SL PRN ×2 (06:19)
[2020-10-21] MEDS ORDERED: EPINEPHrine ADULT AUTO-INJECT 0.3 MG SYR IM PRN (06:19)
[2020-10-21] MEDS ORDERED: ALBUTEROL HFA 8 GM INHALER INH PRN (06:19)
[2020-10-21] MEDS ORDERED: ACETAMINOPHEN 325 MG TAB PO PRN (06:19)
--- NOTE | 2020-10-21 06:27 | History and Physical Report ---
DATE OF ADMISSION: 10/21/2020 CHIEF COMPLAINT: Headache and chest pain. HISTORY OF PRESENT ILLNESS: This is a 65-year-old female with past medical history significant for hyperlipidemia, hypothyroidism, type 2 diabetes, chronic respiratory failure with hypoxia, on 2 liters oxygen all the time, obstructive sleep apnea on CPAP at bedtime, COPD, history of cor pulmonale, history of paroxysmal atrial fibrillation, venous thrombosis, essential hypertension, venous stasis, chronic kidney disease stage III, Lynn's esophagus, cervical disc displacement, generalized osteoarthrosis, lumbar degenerative disc disease, senile osteoporosis, anemia, tobacco use disorder, status post mitral valve repair, depression, PTSD, who lives alone, ambulates with a walker, presents with chest pain and headache. The patient says she gets shots to hips once in a while and she was due for a shot and prior to the shot when they checked for COVID, it came back positive on 10/11/2020. She does not know how she got it and she did not have any symptoms at that time. She gets a caregiver at home.But last 2-3 days she started developing cough with whitish yellow phlegm, but denies any fever, chills, denies any shortness of breath. Her PCP put her on prednisone .Today she developed chest pain, pressure-like feeling, like someone sitting on her chest, 7/10 in severity, no radiation, and also severe headache which prompted her to come to the ER. Initial workup is negative. She is chronically on 2 liters oxygen. And she is saturating fine on 2 liters and currently her chest pain and headaches are improved. Denies any loss of sense of smell or taste. Appetite is not that good for the last 2 days. No nausea, vomiting. She has some abdominal discomfort, but no diarrhea, no constipation, no blood in the stool or black stools. Normal bladder movements. No blurred visions. She has complaints of right earache for the last few days. No runny nose, no sore throat, ambulating with a walker okay. Currently resting comfortably and hemodynamically stable. ALLERGIES: BEE VENOM, LISINOPRIL, POTATO, METRONIDAZOLE, STRAWBERRY, ALPRAZOLAM, LACTOSE, PREDNISONE, COLESEVELAM, LITHIUM. PAST MEDICAL HISTORY: As mentioned above. PAST SURGICAL HISTORY: Hole in ear drup repaired , carpal tunnel surgery, , colonoscopies with biopsies, EGDs, incision of a breast lesion, laparoscopic cholecystectomy, ligation of oviducts, repair of incarcerated incisional hernia, appendectomy, total hysterectomy, umbilical hernia repair, mitral valvotomy. MEDICATIONS: The patient is on albuterol 2 puffs inhalation q. 6 hours p.r.n., alendronate 70 mg p.o. q. weekly, amlodipine 5 mg p.o. a.m., atorvastatin 40 mg p.o. at bedtime, calcitriol 0.25 mcg p.o. as directed, cetirizine 10 mg p.o. at bedtime, vitamin D 1000 units p.o. a.m., diltiazem 120 mg p.o. a.m., Colace 100 mg p.o. daily p.r.n. and as directed, fentanyl 50 mcg transdermal q. 72 hours, Advair Diskus one inhalation b.i.d., furosemide 80 mg p.o. b.i.d., gabapentin 800 mg p.o. b.i.d., Lantus 16 units subcutaneous b.i.d., levalbuterol 1.25 mg inhalation q. 4 hours p.r.n., methocarbamol 750 mg p.o. t.i.d., metoprolol tartrate 100 mg p.o. b.i.d., multivitamin 1 tablet p.o. daily, nitroglycerin 0.4 mg sublingual p.r.n., Zofran 8 mg p.o. b.i.d. p.r.n., oxycodone 10 mg p.o. q. 6 hours p.r.n., Protonix 40 mg p.o. a.m., potassium chloride 10 mEq p.o. t.i.d., prednisone 10 mg p.o. a.m., Spiriva HandiHaler 1 cap inhalation in a.m., trazodone 200 mg at bedtime, venlafaxine 75 mg p.o. a.m., Coumadin 7.5 mg and 5 mg as directed, zolpidem 5 mg p.o. at bedtime p.r.n. FAMILY HISTORY: Significant for father has arthritis, gout; mother has hypertension, diabetes; sister has arthritis. SOCIAL HISTORY: Currently lives alone. Smokes half pack a day for the last about 10 years. No alcohol use, no drug use. REVIEW OF SYSTEMS: As per HPI. Rest of the review of systems negative. PHYSICAL EXAMINATION: GENERAL: The patient is obese, not in acute distress. VITAL SIGNS: Temperature 37.3, pulse 67, respiratory rate 18, blood pressure 151/75, oxygen 97% on 2 liters. HEENT: Pupils equal, round, and reactive to light. Oral mucosa moist. Right ear, some waxing, but no drainage or erythema seen. NECK: No neck masses seen. RESPIRATORY: Clear to auscultation bilaterally. No wheezing, no crackles. CARDIOVASCULAR: S1, S2 heard. Regular rate and rhythm, no murmur, no gallop. RESPIRATORY SYSTEM: Normal AP diameter. No accessory muscle use. No wheezing. No crackles. ABDOMEN: Soft, bowel sounds present, nontender. No distention. CENTRAL NERVOUS SYSTEM: Cranial nerves II-XII grossly intact. Nonfocal. EXTREMITIES: Chronic skin changes seen. No edema seen. LABORATORY DATA: WBC 8.2, hemoglobin 13.4, hematocrit 40.5, platelets 292. PT 33.9, INR 3.7, APTT 43. Sodium 132, potassium 4.1, chloride 98, bicarbonate 28, BUN 28, creatinine 1.78, serum glucose 287, calcium 9.7, total bilirubin 0.4, AST 19, ALT 33, alkaline phosphatase 70. Troponin I less than 0.015, C-reactive protein is less than 0.29, lipase 89. IMAGING DATA: Chest x-ray, cardiomegaly with pulmonary vascular congestion and bilateral reticular opacities suggestive of pulmonary edema versus interstitial pneumonitis, trace pleural effusions. CT of the head, no acute intracranial hemorrhage, stable regions of bifrontal encephalomalacia again noted. No significant change since at least 2013. No mass effect or midline shift, no skull fracture. ASSESSMENT AND PLAN: This is a 65-year-old female who presents with multiple medical problems presents with severe headache and chest pain. 1. Severe headache: The patient was diagnosed with COVID on 10/11/2020. She was tested prior to getting hip shots and at that time she did not have any symptoms. Presented to Er with severe headache. Currently, headache is improved, Tylenol p.r.n. We will monitor. 2. COVID-19 positive: Diagnosed on 10/11/2020. Initially did not have any symptoms, but for last 2-3 days, she is having cough with phlegm. Family doctor put her on prednisone [address] her on Decadron 6 mg daily. She is chronically on 2 liters oxygen. She is not requiring any more oxygen, and she denies any shortness of breath, she does not meet any criteria for remdesivir. Will continue with Decadron and monitor. 3. Chest pain: Presented with chest pain . She attributes it to her cough. Her EKG and troponins are unremarkable. Currently asymptomatic. Will Follow the serial enzymes. Consult cardiology in am. Will keep n.p.o. until seen by cardiology. Echo as per cardiology. 4. History of paroxysmal atrial fibrillation, currently rate is under control. She is on metoprolol tartrate 100 mg b.i.d. and diltiazem 120 mg p.o. daily. On Coumadin. INR is 3.7. We will monitor the PT/INR, monitor the heart rates. 5. History of chronic respiratory failure with hypoxia, on home oxygen 2 liters. 6. History of sleep apnea, on CPAP at bedtime. 7. History of chronic obstructive pulmonary disease: Continue her home inhalers, currently stable. 8. History of chronic diastolic congestive heart failure: Will continue her home Lasix. Will monitor for any volume overload. 9. History of chronic kidney disease stage III: Presently with creatinine of 1.7, close to her baseline. Will follow the repeat labs. 10. History of anxiety and depression: Continue her home medications, she is on venlafaxine. 11. Hypertension: She is on Cardizem, Lopressor, amlodipine. Will monitor her blood pressure. 12. History of diabetes: We will cut back on Lantus to 8 units bid as currently n.p.o. Will place on insulin sliding scale. Follow the blood sugars. 13. Chronic pain: Continue her home pain medications. 14. Gastroesophageal reflux disease: Continue Protonix. 15. Deep venous thrombosis prophylaxis: On Coumadin. INR is therapeutic. DISPOSITION: Close observation in med tele. PT and OT prior to discharge. Social service to help with discharge planning. VAHID
[2020-10-21] MEDS ORDERED: DOCUSATE SODIUM 100 MG CAP PO PRN (06:41)
--- NOTE | 2020-10-21 07:34 | CT Scan Report ---
HEAD CT NONCONTRAST CT DOSE: 614.27 mGy.cm HISTORY: Headache. TECHNIQUE: Multiaxial CT images of the head were performed without the use of intravenous contrast. A utomated exposure control was utilized for this study. A dose lowering technique was utilized adheri ng to the principles of ALARA. Comparison: Head CT 03/22/2019. Findings: The paranasal sinuses and mastoid air cells are clear. The calvarium and skull base are int act. There is no hematoma, midline shift, acute infarct. White matter hypodensity is nonspecific but suggestive of microvascular ischemic change. The ventricles and sulci demonstrate mild age-related in volutional changes. Stable calcified meningioma within the right frontal lobe and old bilateral front al lobe infarcts. Impression: No significant change compared to the prior study. No acute intracranial abnormality. ACT 112: Negative or not required by law. Electronically signed by: Tato Costa M.D. 10/21/2020 7:33 AM
[2020-10-21 08:31] LABS: Basophils # (auto) 0.02 K/uL (0-0.2); Basophils % (auto) 0.2 %; Eosinophils % (auto) 1.1 %; Hematocrit (blood only) 38.9 % (37-47); Hemoglobin 12.8 g/dL (12.0-16.0); Immature Granulocytes # (auto) 0.02 K/uL (0.00-0.02); Immature Granulocytes % (auto) 0.2 %; Lymphocytes % (auto) 20.9 %; Mean Corpuscular Hemoglobin 29.7 pg (25-34); Mean Corpuscular Hgb Conc 32.9 g/dL (32-36); Mean Corpuscular Volume 90.3 fL (80-100); Mean Platelet Volume 9.9 fL (7.4-10.4); Monocytes # (auto) 0.73 K/uL (0.11-0.59); Neutrophils # (auto) 6.34 K/uL (1.4-6.5); Neutrophils % (auto) 69.6 %; Platelet Count 262 K/uL (130-400); RDW Coefficient of Variation 13.9 % (11.5-14.5); RDW Standard Deviation 46.5 fL (36.4-46.3); Red Blood Count 4.31 M/uL (4.2-5.4); White Blood Count 9.11 K/uL (4.8-10.8)
[2020-10-21 08:45] LABS: Estimated Average Glucose 192 mg/dl; Hemoglobin A1C 8.3 % (4.5-5.6)
[2020-10-21 08:48] LABS: INR 4.1 (0.9-1.1); Prothrombin Time 36.9 Seconds (9.0-12.0)
[2020-10-21] MEDS ORDERED: fentaNYL 50 MCG/HR TDSY TD SCH (09:00)
[2020-10-21 09:01] LABS: BUN Creatinine Ratio 18.3 (10-20); Blood Urea Nitrogen 31 mg/dl (7-18); Calcium 9.5 mg/dl (8.5-10.1); Carbon Dioxide 32 mmol/L (21-32); Chloride 104 mmol/L (98-107); Creatinine Clr Calc Pharmacy 39.6 ml/min; Est GFR (African American) 36.3; Est GFR (Non-African American) 31.3; Glucose 148 mg/dl (70-99); Magnesium 2.2 mg/dl (1.8-2.4); Potassium 3.6 mmol/L (3.5-5.1); Sodium 140 mmol/L (136-145); Troponin I < 0.015 ng/ml (0-0.045)
[2020-10-21] MEDS: dilTIAZem HCL 120 MG CAPCR PO SCH (09:32)
[2020-10-21] MEDS: amLODIPine BESYLATE 5 MG TAB PO SCH (09:32)
[2020-10-21] MEDS: VENLAFAXINE HCL XR 75 MG CAPXR PO SCH (09:32)
[2020-10-21] MEDS: VENLAFAXINE HCL XR 150 MG CAPXR PO SCH (09:32)
[2020-10-21] MEDS: dexAMETHasone 1 MG TAB PO SCH (09:33)
[2020-10-21] MEDS: POTASSIUM CHLORIDE 10 MEQ TABCR PO SCH ×3 (09:34→19:58)
[2020-10-21] MEDS: GABAPENTIN 800 MG TAB PO SCH ×2 (09:34→19:58)
[2020-10-21] MEDS: MULTIVITAMIN TAB PO SCH (09:34)
[2020-10-21] MEDS: FUROSEMIDE 80 MG TAB PO SCH ×2 (09:34→17:26)
[2020-10-21] MEDS: PANTOprazole 40 MG TAB PO SCH (09:34)
[2020-10-21] MEDS: METOPROLOL TARTRATE 100 MG TAB PO SCH ×2 (09:35→20:00)
[2020-10-21] MEDS: METHOCARBAMOL 750 MG TABLET PO SCH ×3 (09:35→19:58)
[2020-10-21] MEDS: UMECLIDINIUM BROMIDE 62.5MCG/BLISTER 7 PUFFS/INHALER INH SCH (09:37)
[2020-10-21] MEDS: FLUTICASONE/VILANTEROL 200/25MCG 14 PUFFS/INHALER INH SCH (09:37)
[2020-10-21] MEDS: CHOLECALCIFEROL 1,000 UNITS 25 MCG TAB PO SCH (09:39)
[2020-10-21] MEDS: INSULIN ASPART 100 UNITS/ML 3 ML PEN SC SCH ×4 (09:40→20:54)
[2020-10-21] MEDS: CHECK fentaNYL PATCH PLACEMENT SCH ×2 (09:41→17:25)
[2020-10-21] MEDS: INSULIN GLARGINE SOLOSTAR 100 UNITS/ML 3 ML PEN SC SCH ×2 (09:49→20:55)
[2020-10-21] MEDS: LEVALBUTEROL HCL 1.25 MG/3 ML NEB INH PRN ×2 (10:32→19:50)
--- NOTE | 2020-10-21 11:50 | Cardiology Consultation ---
Date of Consultation October 21, 2020 Assessment & Plan (1) Substernal chest pain: Patient is an extremely complex patient as outlined above. She carries underlying cardiac issues which appear to be stable. Recent diagnosis of COVID- 19 presents now with symptoms of severe headache cough with moderate sputum production and substernal chest pressure atypical for angina worsened by cough and movement/inspiration. Symptoms might be exacerbated by recent initiation of prednisone to therapies versus progression of underlying Covid infection. Cardiac enzymes are negative and EKGs are unchanged she remains in sinus rhythm despite history of paroxysmal atrial fibrillation. She does remain at risk for cardiac deterioration given underlying history of chronic diastolic heart dysfunction and paroxysmal atrial arrhythmias. She is also at significant risk for further pulmonary deterioration if any progression in Covid disease Would continue usual outpatient medications, CPAP and oxygen Patient requests NicoDerm No indications for further cardiac testing Treat underlying infectious process We will follow during hospitalization. (2) Productive cough: (3) Chronic respiratory failure: (4) COVID-19: (5) Acute headache: (6) Paroxysmal atrial fibrillation: (7) S/P MVR (mitral valve repair): History of Present Illness Reason for Consultation: Chest pain with cough, headache Requesting Physician: Dr. Martin Attending Physician: Lizeth Martin MD History of Present Illness The patient is a very complex 65-year-old female whose underlying and ongoing issues include 1. 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 June 13, 2005 cardiac catheterization at [facility] revealing left dominant coronary system with small caliber distal vessels consistent with diabetic history, without obstructive disease. 3. Symptomatic atrial flutter observed initially in February 2013, status post 03/16/2013 and 10/20/2018, July 04 2020 cardioversions. 4. May 02, [address] Masterson, successful ablation of the tricuspid valve to inferior vena caval isthmus with bidirectional block and termination of atrial flutter. Post ablation electrophysiologic study showed dual pathways with echo beats, no inducible SVT however extensive induction was not attempted 5. Coumadin prescribed secondary to the paroxysmal atrial flutter, CHADS2 Score of 5 out of 6 (CHF, HTN, DM, CVA), Lambl's Excrescences, history of DVT, and the mitral valve disease. 6. Increased risk candidate for antiarrhythmic therapy due to QT prolongation from her psych medications. 7. Severe chronic obstructive lung disease, advanced emphysema, chronic hypoxemia with supplemental oxygen therapy 2 L nasal can. Ongoing tobacco abuse 8. Severe pulmonary hypertension 9. Chronic right heart failure, cor pulmonale physiology 10. Obstructive sleep apnea, on CPAP therapy. 11. Anemia 12. Hypertension 13. Hyperlipidemia 14. Type II diabetes mellitus with gastroparesis 15. Stage III chronic kidney disease Patient presents this admission noting recent diagnosis with Covid 19 on a routine preprocedural testing. Patient was begun on oral prednisone as an o utpatient. She sought ER evaluation yesterday evening after severe headache x3 days chest pressure pain with cough and shortness of breath. No overt fevers or chills. Generalized malaise present and mild anorexia. She has been able to take medications. No nausea or vomiting. No loss of smell or taste. No severe fevers or chills. No bleeding difficulties melena medication dysuria hematuria. Was treated for urinary tract infection recently Cough has been productive of thick discolored sputum. Has been able to continue to use CPAP. No specific exertional relationship to symptoms of chest pressure patient described. Worse with inspiration and cough. Weight has been stable without signs of fluid retention per patient Allergies Allergy/AdvReac Type Severity Reaction Status Date / Time bee venom protein (honey bee) Allergy Severe SWELLING Verified 10/21/20 00:16 lisinopril Allergy Intermediate FACE Verified 10/21/20 00:16 SWELLING potato Allergy Intermediate BBQ chips Verified 10/21/20 00:16 - facial swelling metronidazole Allergy Mild FACE Verified 10/21/20 00:16 SWELLING strawberry Allergy Mild HIVES Verified 10/21/20 00:16 alprazolam Allergy Unknown RED FACE, Verified 10/21/20 00:16 FACE SWELLING lactose AdvReac Intermediate VOMTING Verified 10/21/20 00:16 DIARRHEA ABDOMINAL PAIN-LACTOSE INTOLERANCE prednisone AdvReac Mild AGGRESSIVE Verified 10/21/20 00:16 BEHAVIOR colesevelam AdvReac Unknown unknown Verified 10/21/20 00:16 lithium AdvReac Unknown jitters Verified 10/21/20 00:16 Home Medications Medication Instructions Recorded Confirmed Type Spiriva with HandiHaler 1 cap INHALATION QAM 06/19/18 10/21/20 History atorvastatin 40 mg PO HS 06/19/18 10/21/20 History cetirizine 10 mg PO HS 06/19/18 10/21/20 History cholecalciferol (vitamin D3) 1,000 unit PO QAM 06/19/18 10/21/20 History [Vitamin D3] docusate sodium 100 mg PO DAILY PRN 06/19/18 10/21/20 History epinephrine [EpiPen] 0.3 mg IM DIRECTED PRN 06/19/18 10/21/20 History fentanyl 50 mcg TRANSDERMAL [id number] 06/19/18 10/21/20 History furosemide 80 mg PO BID 06/19/18 10/21/20 History methocarbamol 750 mg PO TID 06/19/18 10/21/20 History multivitamin 1 tab PO QAM 06/19/18 10/21/20 History ondansetron 8 mg PO BID PRN 06/19/18 10/21/20 History venlafaxine 150 mg PO QAM 06/19/18 10/21/20 History warfarin 5 mg PO 6XWK 06/19/18 10/21/20 History trazodone 200 mg PO HS 09/14/18 10/21/20 History venlafaxine 75 mg PO QAM 09/14/18 10/21/20 History zolpidem 5 mg PO HS PRN 09/14/18 10/21/20 History gabapentin 800 mg PO BID 05/28/19 10/21/20 History alendronate 70 mg tablet 70 mg PO WK tab 06/10/19 10/21/20 History warfarin 7.5 mg PO WK 09/19/19 10/21/20 History Lantus U-100 Insulin 16 unit SUBCUT BID 03/02/20 10/21/20 History diltiazem HCl 120 mg PO QAM 03/02/20 10/21/20 History metoprolol tartrate 100 mg PO BID #120 tab 03/02/20 10/21/20 Rx pantoprazole 40 mg PO QAM 03/02/20 10/21/20 History potassium chloride 10 meq PO TID 03/02/20 10/21/20 History albuterol sulfate [Proventil HFA] 2 puffs INH Q6H PRN 03/24/20 10/21/20 History levalbuterol HCl 1.25 mg INHALATION Q4H PRN 03/24/20 10/21/20 History amlodipine 5 mg PO QAM 05/15/20 10/21/20 History nitroglycerin [Nitrostat] 0.4 mg SUBLINGUAL DIRECTED PRN 07/02/20 10/21/20 History oxycodone 10 mg PO Q6 PRN 07/02/20 10/21/20 History fluticasone propion-salmeterol 1 inh INHALATION BID 08/01/20 10/21/20 History [Advair Diskus] prednisone 20 mg tablet 20 mg PO QAM 09/12/20 10/21/20 History calcitriol 0.25 mcg PO UD 10/21/20 10/21/20 History Patient History Medical History Anxiety Asthma 3LPM via n/c mostly continuous (although patient states she does not wear this all the time) Atrial fibrillation a. fib/a. flutter s/p cardioversion (2016) Lynn esophagus Bipolar disorder Chronic back pain Chronic cor pulmonale Chronic kidney disease stage III Chronic obstructive pulmonary disease 3LPM via n/c mostly continuous (although patient states she does not wear this all the time) COVID-19 virus detected + 10/11/20 CVA (cerebral vascular accident) 2004 (per records; patient denies) Degeneration of cervical intervertebral disc Depression Diastolic CHF, chronic DM type 2 (diabetes mellitus, type 2) Fibromyalgia Gastroparesis GERD (gastroesophageal reflux disease) History of cardioversion History of Clostridium difficile infection History of DVT (deep vein thrombosis) left "hand" 2004- on AC HTN (hypertension) Hyperlipidemia Hypothyroidism no current medication per doctor orders. 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 Obesity Obstructive sleep apnea treated with BiPAP cpap night Osteoarthritis Peripheral neuropathy Post traumatic stress disorder Surgical History History of adenoidectomy History of appendectomy LAPAROSCOPY History of cardiac cath 2004= no stents History of carpal tunnel release left History of cataract surgery BILATERAL History of cholecystectomy LAPAROSCOPY History of colonoscopy History of esophagogastroduodenoscopy (EGD) History of hysterectomy EMIGDIO WITH BSO History of mitral valve repair 2004 + resection fibroelastoma History of tonsillectomy Hx of lumpectomy right breast BENIGN Hx of tubal ligation Hx of umbilical hernia repair S/P trigger finger release RIGHT/LEFT Family History Mother Family history of diabetes mellitus Sister Family history of diabetes mellitus Ulcerative colitis Social History Smoking Status: Current every day smoker Tobacco Type: Cigarettes Cigarettes Per Day: 10; Second Hand Exposure: Yes; Hx Alcohol Use: No Hx Substance Use: No Preferred Language: Occitan Communication Ability: Effective Visual Impairment: No Limitations Impregnator And Drier Helper Required: No Beliefs That Will Affect Care: None marital status: / Current Living Situation: Alone Current Living Situation Comment: APARTMENT Other Information That Helps Us Care for You: No Feels Safe at Home: Yes Safety Concerns: Feels Safe At This Time Assistive Devices: Oxygen - Continuous and Walker Review of Systems Review of Systems: All systems reviewed & are unremarkable except as noted in HPI & below Physical Exam Constitutional: + ill appearing and + obese; no acute distress Eyes: PERRL ENMT: external ear and nose normal, oropharynx normal Neck: trachea midline, no thyromegaly Respiratory: Auscultation: + diminished lung sounds (With coarse crackles right greater than left) Cardiovascular: Rate/Rhythm: regular rate and regular rhythm Heart Sounds: normal S1 and normal S2; no gallop and no murmur Palpation: normal PMI Vessels: normal carotid upstroke and radial pulses present; no JVD and no carotid bruit Extremities: no edema Gastrointestinal (Abdomen): normal bowel sounds, soft, nontender, no hepa tosplenomegaly Musculoskeletal: no cyanosis or clubbing, extremities motor strength 5/5 Skin: no rashes, warm and dry Neurologic: PERRL, EOMI, accommodation nl, no face palsy, no dysarthria Psychiatric: A+Ox3, euthymic affect Results & Data ([facility]) Vital Signs (Past 12 Hours) Vital Signs Temp Pulse Pulse Resp BP BP Pulse Ox 10/21/20 11:06 36.5 C 48 L 20 120/58 L 96 10/21/20 10:33 56 L 18 95 10/21/20 07:21 36.5 C 67 20 139/77 92 10/21/20 06:33 36.8 C 58 L 18 137/59 L 94 10/21/20 06:19 10/21/20 05:44 59 L 16 144/48 H 97 10/21/20 04:35 67 18 151/75 H 97 10/21/20 04:00 58 L 19 98 10/21/20 02:31 57 L 17 135/76 97 10/21/20 02:00 56 L 16 111/59 L 98 10/21/20 01:30 58 L 18 143/61 H 98 10/21/20 01:00 57 L 16 132/110 H 98 10/21/20 00:31 56 L 16 138/68 98 10/21/20 00:00 57 L 20 133/58 L 98 Pulse Ox 10/21/20 11:06 10/21/20 10:33 10/21/20 07:21 10/21/20 06:33 10/21/20 06:19 94 10/21/20 05:44 10/21/20 04:35 10/21/20 04:00 10/21/20 02:31 10/21/20 02:00 10/21/20 01:30 10/21/20 01:00 10/21/20 00:31 10/21/20 00:00 Laboratory Results Laboratory Results - last 24 hr 10/20/20 10/20/20 10/20/20 20:07 20:07 20:07 WBC 8.22 RBC 4.54 Hgb 13.4 Hct 40.5 MCV 89.2 MCH 29.5 MCHC 33.1 RDW Std Deviation 45.4 RDW Coeff of King 13.8 Plt Count 292 MPV 10.2 Immature Gran % (Auto) 0.1 Neut % (Auto) 79.5 Lymph % (Auto) 14.5 Hudson % (Auto) 5.8 Eos % (Auto) 0.0 Baso % (Auto) 0.1 Neut # (Auto) 6.53 H Lymph # (Auto) 1.19 L Hudson # (Auto) 0.48 Eos # (Auto) 0.00 Baso # (Auto) 0.01 Immature Gran # (Auto) 0.01 PT INR APTT PTT Ratio D-Dimer < 190 Sodium 132 L Potassium 4.1 Chloride 98 Carbon Dioxide 28 Anion Gap 6.0 BUN 28 H Creatinine 1.78 H Est Cr Clr Drug Dosing 37.8 Est GFR ( Amer) 34.3 Est GFR (Non-Af Amer) 29.6 BUN/Creatinine Ratio 15.5 Glucose 287 H POC Glucose Estimat Average Glucose Hemoglobin A1c Calcium 9.7 Magnesium Total Bilirubin 0.4 AST 19 ALT 33 Alkaline Phosphatase 70 Troponin I < 0.015 C-Reactive Protein < 0.29 Total Protein 7.4 Albumin 3.1 L Globulin 4.3 H Albumin/Globulin Ratio 0.7 L Lipase 89 10/20/20 10/21/20 10/21/20 20:07 07:45 07:45 WBC 9.11 RBC 4.31 Hgb 12.8 Hct 38.9 MCV 90.3 MCH 29.7 MCHC 32.9 RDW Std Deviation 46.5 H RDW Coeff of King 13.9 Plt Count 262 MPV 9.9 Immature Gran % (Auto) 0.2 Neut % (Auto) 69.6 Lymph % (Auto) 20.9 Hudson % (Auto) 8.0 Eos % (Auto) 1.1 Baso % (Auto) 0.2 Neut # (Auto) 6.34 Lymph # (Auto) 1.90 Hudson # (Auto) 0.73 H Eos # (Auto) 0.10 Baso # (Auto) 0.02 Immature Gran # (Auto) 0.02 PT 33.9 H 36.9 H INR 3.7 H 4.1 H APTT 43.0 H PTT Ratio 1.6 D-Dimer Sodium Potassium Chloride Carbon Dioxide Anion Gap BUN Creatinine Est Cr Clr Drug Dosing Est GFR ( Amer) Est GFR (Non-Af Amer) BUN/Creatinine Ratio Glucose POC Glucose Estimat Average Glucose Hemoglobin A1c Calcium Magnesium Total Bilirubin AST ALT Alkaline Phosphatase Troponin I C-Reactive Protein Total Protein Albumin Globulin Albumin/Globulin Ratio Lipase 10/21/20 10/21/20 10/21/20 07:45 07:45 08:14 WBC RBC Hgb Hct MCV MCH MCHC RDW Std Deviation RDW Coeff of King Plt Count MPV Immature Gran % (Auto) Neut % (Auto) Lymph % (Auto) Hudson % (Auto) Eos % (Auto) Baso % (Auto) Neut # (Auto) Lymph # (Auto) Hudson # (Auto) Eos # (Auto) Baso # (Auto) Immature Gran # (Auto) PT INR APTT PTT Ratio D-Dimer Sodium 140 D Potassium 3.6 Chloride 104 Carbon Dioxide 32 Anion Gap 5.0 BUN 31 H Creatinine 1.70 H Est Cr Clr Drug Dosing 39.6 Est GFR ( Amer) 36.3 Est GFR (Non-Af Amer) 31.3 BUN/Creatinine Ratio 18.3 Glucose 148 H POC Glucose 130 H Estimat Average Glucose 192 Hemoglobin A1c 8.3 H Calcium 9.5 Magnesium 2.2 Total Bilirubin AST ALT Alkaline Phosphatase Troponin I < 0.015 C-Reactive Protein Total Protein Albumin Globulin Albumin/Globulin Ratio Lipase 10/21/20 11:49 WBC RBC Hgb Hct MCV MCH MCHC RDW Std Deviation RDW Coeff of King Plt Count MPV Immature Gran % (Auto) Neut % (Auto) Lymph % (Auto) Hudson % (Auto) Eos % (Auto) Baso % (Auto) Neut # (Auto) Lymph # (Auto) Hudson # (Auto) Eos # (Auto) Baso # (Auto) Immature Gran # (Auto) PT INR APTT PTT Ratio D-Dimer Sodium Potassium Chloride Carbon Dioxide Anion Gap BUN Creatinine Est Cr Clr Drug Dosing Est GFR ( Amer) Est GFR (Non-Af Amer) BUN/Creatinine Ratio Glucose POC Glucose 140 H Estimat Average Glucose Hemoglobin A1c Calcium Magnesium Total Bilirubin AST ALT Alkaline Phosphatase Troponin I C-Reactive Protein Total Protein Albumin Globulin Albumin/Globulin Ratio Lipase ECG Additional Comments: EKG 10/20/2020: Personally reviewed, sinus rhythm with marked sinus arrhythmia Possible Left atrial enlargement Right bundle branch block T wave abnormality, consider inferior ischemia Abnormal ECG not significantly ch anged from prior studies (1) Acute headache Headache type: unspecified Intractability: not intractable Qualified Code(s): R51.9 - Headache, unspecified
[2020-10-21] MEDS: oxyCODONE HCL IR 5 MG TAB (IMMEDIATE RELEASE) PO PRN ×2 (12:31→20:00)
[2020-10-21] MEDS: NICOTINE 21 MG/24 HR TDSY TD SCH (14:10)
[2020-10-21] MEDS: CALCITRIOL 0.25 MCG CAPSULE PO SCH (14:11)
[2020-10-21] MEDS ORDERED: WARFARIN SOD 5 MG TAB PO SCH (16:00)
--- NOTE | 2020-10-21 19:02 | Hospitalist Progress Note ---
Date of Service October 21, 2020 Assessment & Plan (1) COVID-19: COVID-19 positive: Diagnosed on 10/11/2020. symptoms, but for last 2-3 days, developed cough with phlegm. no hypoxia ( on chronic 2 L 02 via nasal canula) Cardiomegaly with pulmonary vascular congestion and bilateral reticular opacities suggestive of pulmonary edema versus interstitial pneumonitis. started her on Decadron 6 mg daily. will add PO doxycycline for possible superimposed pneumonitis /bronchitis (2) Chronic respiratory failure: due to COPD , on 2 L home o2 continued Chest pain /chest heaviness : presented with substernal chest pain symptoms has resolved appreciate input form Cardiology no evidence of acute coronary event serial Cardiac enzymes are negative and EKGs are unchanged chest discomfort /heaviness possible due to cough symptoms , covid pneumonitis cont tx for infection as above no further cardiac work up needed HX OF PAROXYSMAL AFIB: Cont beta mana : Metoprolol 100 mg BID and Diltiazem on Coumadin , INR elevated 4 hold Coumadin Full code will need PT/Ot eval prior to discharge home Admission and Anticipated Discharge Date Admission Date: October 21, 2020 Subjective follow up visit for COVID 19 pneumonia /chest pain /headache : Juliet is seen in COVID 19 unit in room 215/1 complains of intractable headache .received 10 mg Oxycodone 1.5 hrs back no improvement no fever or chills , no visual symptoms does not have cough or SOB no complain of chest pain at present Review of Systems Review of Systems: All systems reviewed & are unremarkable except as noted in Subjective Physical Exam Constitutional: WD/WN, vitals as above Eyes: + anicteric sclerae ENMT: external ear and nose normal, oropharynx normal Neck: trachea midline, no thyromegaly Results & Data Results & Data ([facility]) Vital Signs (Past 12 Hours) Vital Signs Temp Pulse Resp BP Pulse Ox 10/21/20 15:21 36.6 C 54 L 20 148/80 H 96 10/21/20 11:06 36.5 C 48 L 20 120/58 L 96 10/21/20 10:33 56 L 18 95 10/21/20 07:21 36.5 C 67 20 139/77 92
[2020-10-21] MEDS: traZODone HCL 100 MG TAB PO SCH (19:58)
[2020-10-21] MEDS: ATORVASTATIN 40 MG TAB PO SCH (19:58)
[2020-10-21] MEDS: ZOLPIDEM TARTRATE 5 MG TAB PO PRN (20:00)
[2020-10-21] MEDS: CETIRIZINE HCL 10 MG TABLET PO SCH (20:00)
[2020-10-21] MEDS ORDERED: SODIUM CHLORIDE 0.9% 1000ML 1,000 ML IV SCH (21:15)
[2020-10-21] MEDS ORDERED: traMADol HCL 50 MG TABLET PO STA (21:23)
[2020-10-21] MEDS ORDERED: MoRPHine SULFATE 4 MG/ML 1 ML CARP\\VIAL IV STA (23:14)
[2020-10-22] MEDS: oxyCODONE HCL IR 5 MG TAB (IMMEDIATE RELEASE) PO PRN (02:38)
[2020-10-22] MEDS: LEVALBUTEROL HCL 1.25 MG/3 ML NEB INH PRN ×3 (03:12→22:48)
[2020-10-22 08:02] LABS: INR 2.5 (0.9-1.1); Prothrombin Time 23.8 Seconds (9.0-12.0)
[2020-10-22 08:12] LABS: BUN Creatinine Ratio 19.2 (10-20); Calcium 9.2 mg/dl (8.5-10.1); Creatinine Clr Calc Pharmacy 39.2 ml/min; Est GFR (African American) 37.9; Est GFR (Non-African American) 32.7; Potassium 3.4 mmol/L (3.5-5.1)
[2020-10-22] MEDS: INSULIN ASPART 100 UNITS/ML 3 ML PEN SC SCH ×4 (08:45→21:33)
[2020-10-22] MEDS: INSULIN GLARGINE SOLOSTAR 100 UNITS/ML 3 ML PEN SC SCH ×2 (08:45→21:35)
[2020-10-22] MEDS: CHECK fentaNYL PATCH PLACEMENT SCH ×3 (08:49→16:14)
[2020-10-22] MEDS: FLUTICASONE/VILANTEROL 200/25MCG 14 PUFFS/INHALER INH SCH (08:50)
[2020-10-22] MEDS: UMECLIDINIUM BROMIDE 62.5MCG/BLISTER 7 PUFFS/INHALER INH SCH (08:50)
[2020-10-22] MEDS: VENLAFAXINE HCL XR 150 MG CAPXR PO SCH (08:51)
[2020-10-22] MEDS: VENLAFAXINE HCL XR 75 MG CAPXR PO SCH (08:51)
[2020-10-22] MEDS: dilTIAZem HCL 120 MG CAPCR PO SCH (08:51)
[2020-10-22] MEDS: dexAMETHasone 1 MG TAB PO SCH (08:51)
[2020-10-22] MEDS: FUROSEMIDE 80 MG TAB PO SCH ×2 (08:52→17:12)
[2020-10-22] MEDS: METOPROLOL TARTRATE 100 MG TAB PO SCH ×2 (08:53→21:27)
[2020-10-22] MEDS: POTASSIUM CHLORIDE 10 MEQ TABCR PO SCH ×3 (08:53→21:28)
[2020-10-22] MEDS: MULTIVITAMIN TAB PO SCH (08:53)
[2020-10-22] MEDS: CHOLECALCIFEROL 1,000 UNITS 25 MCG TAB PO SCH (08:54)
[2020-10-22] MEDS: METHOCARBAMOL 750 MG TABLET PO SCH ×3 (08:54→21:28)
[2020-10-22] MEDS: CALCITRIOL 0.25 MCG CAPSULE PO SCH (08:54)
[2020-10-22] MEDS: NICOTINE 21 MG/24 HR TDSY TD SCH (08:54)
[2020-10-22] MEDS: amLODIPine BESYLATE 5 MG TAB PO SCH (08:54)
[2020-10-22] MEDS: PANTOprazole 40 MG TAB PO SCH (08:54)
[2020-10-22] MEDS: GABAPENTIN 800 MG TAB PO SCH ×2 (08:55→21:27)
[2020-10-22] MEDS ORDERED: fentaNYL 50 MCG/HR TDSY TD SCH (09:00)
[2020-10-22] MEDS ORDERED: POTASSIUM CHLORIDE CRTAB 20 MEQ TABCR PO STA (09:43)
[2020-10-22 10:06] LABS: Magnesium 1.8 mg/dl (1.8-2.4)
[2020-10-22] MEDS: METOPROLOL TARTRATE 1 MG/ML VIAL IV PRN ×2 (10:08→17:08)
--- NOTE | 2020-10-22 11:11 | Electrocardiogram Report ---
Test Reason : Blood Pressure : / mmHG Vent. Rate : 068 BPM Atrial Rate : 068 BPM P-R Int : 180 ms QRS Dur : 138 ms QT Int : 430 ms P-R-T Axes : 077 085 006 degrees QTc Int : 457 ms Poor data quality, interpretation may be adversely affected Sinus rhythm Premature atrial complexes Possible Left atrial enlargement Right bundle branch block T wave abnormality, consider inferior ischemia Abnormal ECG When compared with ECG of 01-AUG-2020 11:38, No significant change Confirmed by Chino Masterson ([id number]) on 10/22/2020 11:10:43 AM Referred By: REFERRED SELF Confirmed By:Chino Masterson
--- NOTE | 2020-10-22 11:41 | Cardiology Progress Note ---
Date of Service October 22, 2020 Assessment & Plan (1) Substernal chest pain: Patient is an extremely complex patient as outlined above. She carries underlying cardiac issues which appear to be stable. Recent diagnosis of COVID- 19 presents now with symptoms of severe headache cough with moderate sputum production and substernal chest pressure atypical for angina worsened by cough and movement/inspiration. Symptoms might be exacerbated by recent initiation of prednisone to therapies versus progression of underlying Covid infection. Cardiac enzymes are negative and EKGs are unchanged she remains in sinus rhythm despite history of paroxysmal atrial fibrillation. She does remain at risk for cardiac deterioration given underlying history of chronic diastolic heart dysfunction and paroxysmal atrial arrhythmias. She is also at significant risk for further pulmonary deterioration if any progression in Covid disease Patient has had no further chest pain or discomfort. Symptoms of headache and remain persistent but cough and pulmonary status appears stable despite Covid infection Patient is morning did lapse into atrial fibrillation likely in combination with stress of illness, beta-mana withdrawal and hypokalemia. Heart rate currently in the 90s to low 100s after resuming a.m. meds. Plan continue current therapies. We will change holding parameters for metoprolol to heart rate less than 50. Agree with potassium supplementation We will follow with hospitalist (2) Productive cough: (3) Chronic respiratory failure: (4) COVID-19: (5) Acute headache: (6) Paroxysmal atrial fibrillation: (7) S/P MVR (mitral valve repair): Admission and Anticipated Discharge Date Admission Date: October 21, 2020 Subjective Patient was seen and personally examined. Chart, telemetry and laboratory studies reviewed. Patient this morning continues to complain of intermittent headache. Moderately productive cough. No fevers or chills. Did lapse into atrial fibrillation earlier this morning with elevated ventricular response rate. Records reflect metoprolol having been held last evening due to mild bradycardia. Otherwise no acute complaints and patient unaware of arrhythmias. No worsening dyspnea. No worsening edema. O2 sats remained good on 2 L nasal cannula Review of Systems Review of Systems: All systems reviewed & are unremarkable except as noted in HPI & below Physical Exam Constitutional: + ill appearing and + obese; no acute distress Eyes: PERRL ENMT: external ear and nose normal, oropharynx normal Neck: trachea midline, no thyromegaly Respiratory: Auscultation: + diminished lung sounds (With coarse crackles ri ght greater than left) Cardiovascular: Rate/Rhythm: + irregularly irregular Heart Sounds: normal S1 and normal S2; no gallop and no murmur Palpation: normal PMI Vessels: normal carotid upstroke and radial pulses present; no JVD and no carotid bruit Extremities: no edema Gastrointestinal (Abdomen): normal bowel sounds, soft, nontender, no hepatosplenomegaly Musculoskeletal: no cyanosis or clubbing, extremities motor strength 5/5 Skin: no rashes, warm and dry Neurologic: PERRL, EOMI, accommodation nl, no face palsy, no dysarthria Psychiatric: A+Ox3, euthymic affect Results & Data ([facility]) Vital Signs (Past 12 Hours) Vital Signs Temp Pulse Pulse Resp BP BP Pulse Ox 10/22/20 11:35 36.5 C 108 H 18 116/75 97 10/22/20 10:08 119 H 10/22/20 09:05 132 H 10/22/20 08:00 54 L 10/22/20 07:35 67 18 92 10/22/20 07:13 36.4 C L 57 L 20 133/65 94 10/22/20 06:13 10/22/20 03:35 36.5 C 62 18 150/71 H 97 10/22/20 03:13 54 L 18 96 10/21/20 23:41 65 Pulse Ox 10/22/20 11:35 10/22/20 10:08 10/22/20 09:05 10/22/20 08:00 10/22/20 07:35 10/22/20 07:13 10/22/20 06:13 93 10/22/20 03:35 10/22/20 03:13 10/21/20 23:41 Laboratory Results Laboratory Results - last 24 hr 10/21/20 10/21/20 10/21/20 11:49 12:56 16:34 PT INR Sodium Potassium Chloride Carbon Dioxide Anion Gap BUN Creatinine Est Cr Clr Drug Dosing Est GFR ( Amer) Est GFR (Non-Af Amer) BUN/Creatinine Ratio Glucose POC Glucose 140 H 195 H Calcium Magnesium Troponin I < 0.015 NT-Pro-B Natriuret Pep 10/21/20 10/21/20 10/22/20 19:44 20:41 06:48 PT 23.8 H INR 2.5 H Sodium Potassium Chloride Carbon Dioxide Anion Gap BUN Creatinine Est Cr Clr Drug Dosing Est GFR ( Amer) Est GFR (Non-Af Amer) BUN/Creatinine Ratio Glucose POC Glucose 220 H Calcium Magnesium Troponin I < 0.015 NT-Pro-B Natriuret Pep 10/22/20 10/22/20 10/22/20 06:48 06:48 07:12 PT INR Sodium 137 Potassium 3.4 L Chloride 99 Carbon Dioxide 31 Anion Gap 8.0 BUN 32 H Creatinine 1.64 H Est Cr Clr Drug Dosing 39.2 Est GFR ( Amer) 37.9 Est GFR (Non-Af Amer) 32.7 BUN/Creatinine Ratio 19.2 Glucose 163 H POC Glucose 172 H Calcium 9.2 Magnesium 1.8 Troponin I NT-Pro-B Natriuret Pep 1417 H 10/22/20 11:38 PT INR Sodium Potassium Chloride Carbon Dioxide Anion Gap BUN Creatinine Est Cr Clr Drug Dosing Est GFR ( Amer) Est GFR (Non-Af Amer) BUN/Creatinine Ratio Glucose POC Glucose 142 H Calcium Magnesium Troponin I NT-Pro-B Natriuret Pep (1) Acute headache Headache type: unspecified Intractability: not intractable Qualified Code(s): R51.9 - Headache, unspecified
--- NOTE | 2020-10-22 11:44 | Electrocardiogram Report ---
Test Reason : Blood Pressure : / mmHG Vent. Rate : 062 BPM Atrial Rate : 062 BPM P-R Int : 184 ms QRS Dur : 156 ms QT Int : 474 ms P-R-T Axes : 061 087 003 degrees QTc Int : 481 ms Normal sinus rhythm Right bundle branch block T wave abnormality, consider inferior ischemia Abnormal ECG When compared with ECG of 20-OCT-2020 20:53, (unconfirmed) No significant change was found Confirmed by Chino Masterson ([id number]) on 10/22/2020 11:44:20 AM Referred By: REFERRED SELF Confirmed By:Chino Masterson
--- NOTE | 2020-10-22 11:46 | Electrocardiogram Report ---
Test Reason : Blood Pressure : / mmHG Vent. Rate : 132 BPM Atrial Rate : 120 BPM P-R Int : 000 ms QRS Dur : 160 ms QT Int : 360 ms P-R-T Axes : 000 107 -16 degrees QTc Int : 533 ms Atrial fibrillation with rapid ventricular response Right bundle branch block Abnormal ECG When compared with ECG of 22-OCT-2020 07:54, (unconfirmed) Atrial fibrillation has replaced Sinus rhythm Vent. rate has increased BY 70 BPM Confirmed by Chino Masterson ([id number]) on 10/22/2020 11:45:59 AM Referred By: REFERRED SELF Confirmed By:Chino Masterson
[2020-10-22] MEDS ORDERED: REMDESIVIR 200 MG in SODIUM CHLORIDE 0.9% 210 ML IV STA (15:13)
--- NOTE | 2020-10-22 15:30 | Communication Note ---
Date of Service: October 22, 2020 Rapid Afib RVR : hx of Paroxysmal Afib was on sinus rhythm with rate controlled on admission converted to rapid afib RVR this morning , with HR elevated > 130's pt remained asymptomatic , PM dose of beta mana was kept on hold last evening for borderline bradycardia HR 53 d/w Cardiology -recommends to continue with home dose of Metoprolol 100 mg BID /Diltiazem 120 mg daily given acute illness , high risk for cardiac arrhythmia , beta mana to be held if HR < 50's monitor in tele PO K supplement given for hypokalemia normal Mg level , repeat Labs in AM COVID 19 Pneumonia : on dexamethasone, added Doxycycline for possible bronchitis ordered IV remdesivir Chronic anticoagulation with Coumadin Coumadin kept on hold for INR 4.1 INR 2.5 today resume tomorrow Persistent headache : possible due to covid [address] head negative for acute change was ordered Oxycodone PRN yesterday , had minimum benefit one dose of 50 mg PO Tramadol given pt developed confusion overnight all narcotics D/moriah ordered for scheduled IV Tylenol for next 24 hrs if symptoms improved dose will be changed to PRN chronic respiratory failure due to COPD on home 02 on 2 L 02 CKD stage 3 Cr 1.6 , renal function at baseline Full code DVT PROPHYLAXIS : DISPOSITION : lives in apartment , independent in ADL's /uses walker has caregivers and active with [employer] @ home service PT/OT elena requested plan to return home with prior services when medically stable Family Physician follow up with Dr Manoj Goins at [facility]
[2020-10-22] MEDS: ACETAMINOPHEN 1,000 MG/100 ML VIAL IV SCH (16:13)
[2020-10-22] MEDS: DOXYCYCLINE HYCLATE 100 MG CAP PO SCH (16:13)
[2020-10-22] MEDS ORDERED: SODIUM CHLORIDE 0.9% 10ML FLUSH IV ONE (17:30)
[2020-10-22] MEDS: CETIRIZINE HCL 10 MG TABLET PO SCH (21:27)
[2020-10-22] MEDS: ATORVASTATIN 40 MG TAB PO SCH (21:27)
[2020-10-22] MEDS: traZODone HCL 100 MG TAB PO SCH (21:28)
[2020-10-22] MEDS: ZOLPIDEM TARTRATE 5 MG TAB PO PRN (21:32)
[2020-10-22] MEDS ORDERED: oxyCODONE HCL IR 5 MG TAB (IMMEDIATE RELEASE) PO STA (22:40)
[2020-10-23] MEDS: DOXYCYCLINE HYCLATE 100 MG CAP PO SCH ×2 (00:02→08:32)
[2020-10-23] MEDS: ACETAMINOPHEN 1,000 MG/100 ML VIAL IV SCH ×2 (00:02→08:36)
[2020-10-23] MEDS: CHECK fentaNYL PATCH PLACEMENT SCH ×3 (00:05→17:48)
[2020-10-23 07:16] LABS: INR 1.5 (0.9-1.1); Prothrombin Time 15.2 Seconds (9.0-12.0)
[2020-10-23] MEDS: LEVALBUTEROL HCL 1.25 MG/3 ML NEB INH PRN ×2 (07:31→22:19)
[2020-10-23 07:39] LABS: BUN Creatinine Ratio 18.9 (10-20); Calcium 8.9 mg/dl (8.5-10.1); Creatinine Clr Calc Pharmacy 33.9 ml/min; Est GFR (African American) 32.1; Est GFR (Non-African American) 27.7; Magnesium 1.9 mg/dl (1.8-2.4); Potassium 3.6 mmol/L (3.5-5.1)
[2020-10-23] MEDS: dexAMETHasone 1 MG TAB PO SCH (08:32)
[2020-10-23] MEDS: NICOTINE 21 MG/24 HR TDSY TD SCH (08:33)
[2020-10-23] MEDS: CHOLECALCIFEROL 1,000 UNITS 25 MCG TAB PO SCH (08:33)
[2020-10-23] MEDS: PANTOprazole 40 MG TAB PO SCH (08:33)
[2020-10-23] MEDS: GABAPENTIN 800 MG TAB PO SCH ×2 (08:33→21:48)
[2020-10-23] MEDS: METHOCARBAMOL 750 MG TABLET PO SCH ×3 (08:33→21:48)
[2020-10-23] MEDS: CALCITRIOL 0.25 MCG CAPSULE PO SCH (08:33)
[2020-10-23] MEDS: UMECLIDINIUM BROMIDE 62.5MCG/BLISTER 7 PUFFS/INHALER INH SCH (08:34)
[2020-10-23] MEDS: dilTIAZem HCL 120 MG CAPCR PO SCH (08:34)
[2020-10-23] MEDS: FLUTICASONE/VILANTEROL 200/25MCG 14 PUFFS/INHALER INH SCH (08:34)
[2020-10-23] MEDS: MULTIVITAMIN TAB PO SCH (08:34)
[2020-10-23] MEDS: VENLAFAXINE HCL XR 75 MG CAPXR PO SCH (08:34)
[2020-10-23] MEDS: VENLAFAXINE HCL XR 150 MG CAPXR PO SCH (08:35)
[2020-10-23] MEDS: METOPROLOL TARTRATE 100 MG TAB PO SCH (08:35)
[2020-10-23] MEDS: FUROSEMIDE 80 MG TAB PO SCH ×2 (08:35→17:52)
[2020-10-23] MEDS: POTASSIUM CHLORIDE 10 MEQ TABCR PO SCH ×3 (08:35→21:48)
[2020-10-23] MEDS: amLODIPine BESYLATE 5 MG TAB PO SCH (08:35)
[2020-10-23] MEDS: INSULIN GLARGINE SOLOSTAR 100 UNITS/ML 3 ML PEN SC SCH ×2 (08:46→21:53)
[2020-10-23] MEDS: INSULIN ASPART 100 UNITS/ML 3 ML PEN SC SCH ×4 (08:47→21:49)
--- NOTE | 2020-10-23 09:17 | Electrocardiogram Report ---
Test Reason : Blood Pressure : / mmHG Vent. Rate : 088 BPM Atrial Rate : 178 BPM P-R Int : 000 ms QRS Dur : 152 ms QT Int : 418 ms P-R-T Axes : 000 099 -10 degrees QTc Int : 505 ms Atrial fibrillation Right bundle branch block Abnormal ECG When compared with ECG of 22-OCT-2020 09:04, Vent. rate has decreased BY 44 BPM T wave inversion less evident in Anterior leads Confirmed by Noé Hernandez ([id number] on 10/23/2020 9:17:03 AM Referred By: REFERRED SELF Confirmed By:Noé Hernandez
--- NOTE | 2020-10-23 11:31 | Communication Note ---
Date of Service: October 23, 2020 Community acquired Pneumonia ; sputum culture positive for Moraxella Catarrhalis : abx changed to PO Augmentin 875 mg BID -appropriate therapy needs 7 days tx Dc Doxycycline Lizeth Martin MD
[2020-10-23] MEDS ORDERED: REMDESIVIR 100 MG in SODIUM CHLORIDE 0.9% 230 ML IV SCH (12:00)
[2020-10-23] MEDS ORDERED: SODIUM CHLORIDE 0.9% 10ML FLUSH IV SCH (13:00)
[2020-10-23] MEDS: AMOXICILLIN/CLAVULANATE 875 MG TAB PO SCH ×2 (14:08→21:48)
[2020-10-23] MEDS: oxyCODONE HCL IR 5 MG TAB (IMMEDIATE RELEASE) PO PRN ×2 (14:09→19:58)
--- NOTE | 2020-10-23 15:15 | Cardiology Progress Note ---
Date of Service October 23, 2020 Assessment & Plan (1) Substernal chest pain: Patient is an extremely complex patient as outlined above. She carries underlying cardiac issues which appear to be stable. Recent diagnosis of COVID- 19 presents now with symptoms of severe headache cough with moderate sputum production and substernal chest pressure atypical for angina worsened by cough and movement/inspiration. Symptoms might be exacerbated by recent initiation of prednisone to therapies versus progression of underlying Covid infection. Cardiac enzymes are negative and EKGs are unchanged she remains in sinus rhythm despite history of paroxysmal atrial fibrillation. She does remain at risk for cardiac deterioration given underlying history of chronic diastolic heart dysfunction and paroxysmal atrial arrhythmias. She is also at significant risk for further pulmonary deterioration if any progression in Covid disease Patient has had no further chest pain or discomfort. Symptoms of headache and remain persistent but cough and pulmonary status appears stable despite Covid infection Patient is morning did lapse into atrial fibrillation likely in combination with stress of illness, beta-mana withdrawal and hypokalemia. Heart rate currently in the 80s to 90S but occasionally elevated Plan: We will change metoprolol tartrate to metoprolol succinate. If heart rate still elevated in a.m. we will increase diltiazem dosing. A.m. dose of diltiazem held until review Would resume oral anticoagulation unless contraindication to do so (2) Productive cough: (3) Chronic respiratory failure: (4) COVID-19: (5) Acute headache: (6) Paroxysmal atrial fibrillation: (7) S/P MVR (mitral valve repair): Admission and Anticipated Discharge Date Admission Date: October 22, 2020 Subjective Patient not personally seen in an attempt to minimize Covid unit flow. Patient's data, telemetry, laboratory studies reviewed and patient reviewed with caregiver No cardiac complaints today heart rates trending toward slightly better control still 80s and 90s at rest. No chest pains or or worsening shortness of Telemetry reveals persistent atrial fibrillation with occasional elevations in heart rate not sustained Physical Exam Physical Exam: Patient not examined Results & Data ([facility]) Vital Signs (Past 12 Hours) Vital Signs Temp Pulse Pulse Resp BP Pulse Ox Pulse Ox 10/23/20 13:52 95 10/23/20 11:58 36.5 C 92 H 18 138/89 100 10/23/20 08:00 96 H 10/23/20 07:35 92 H 18 98 10/23/20 07:29 36.6 C 88 19 131/64 98 10/23/20 06:00 10/23/20 03:27 36.4 C L 77 20 114/69 100 Pulse Ox Pulse Ox 10/23/20 13:52 95 10/23/20 11:58 10/23/20 08:00 10/23/20 07:35 10/23/20 07:29 10/23/20 06:00 96 10/23/20 03:27 Laboratory Results Laboratory Results - last 24 hr 10/22/20 10/22/20 10/23/20 16:28 20:31 06:43 PT 15.2 H INR 1.5 H Sodium Potassium Chloride Carbon Dioxide Anion Gap BUN Creatinine Est Cr Clr Drug Dosing Est GFR ( Amer) Est GFR (Non-Af Amer) BUN/Creatinine Ratio Glucose POC Glucose 172 H 221 H Calcium Magnesium 10/23/20 10/23/20 10/23/20 06:43 07:56 12:04 PT INR Sodium 140 Potassium 3.6 Chloride 103 Carbon Dioxide 31 Anion Gap 7.0 BUN 36 H Creatinine 1.88 H Est Cr Clr Drug Dosing 33.9 Est GFR ( Amer) 32.1 Est GFR (Non-Af Amer) 27.7 BUN/Creatinine Ratio 18.9 Glucose 262 H POC Glucose 219 H 128 H Calcium 8.9 Magnesium 1.9 (1) Acute headache Headache type: unspecified Intractability: not intractable Qualified Code(s): R51.9 - Headache, unspecified
[2020-10-23] MEDS ORDERED: WARFARIN SOD 7.5 MG TAB PO SCH (16:00)
[2020-10-23] MEDS: METOPROLOL TARTRATE 1 MG/ML VIAL IV PRN (19:47)
--- NOTE | 2020-10-23 20:15 | Hospitalist Progress Note ---
Date of Service October 23, 2020 Assessment & Plan (1) COVID-19: COVID-19 positive: Diagnosed on 10/11/2020. symptoms, but for last 2-3 days, developed cough with phlegm. no hypoxia ( on chronic 2 L 02 via nasal canula) Cardiomegaly with pulmonary vascular congestion and bilateral reticular opacities suggestive of pulmonary edema versus interstitial pneumonitis. started her on Decadron 6 mg daily. abx changed to Augmentin per sputum culture (2) Chronic respiratory failure: due to COPD , on 2 L home o2 continued Chest pain /chest heaviness : presented with substernal chest pain symptoms has resolved appreciate input form Cardiology no evidence of acute coronary event serial Cardiac enzymes are negative and EKGs are unchanged chest discomfort /heaviness possible due to cough symptoms , covid pneumonitis cont tx for infection as above no further cardiac work up needed HX OF PAROXYSMAL AFIB: beta mana dose adjusted by cardiology : Toprol XL 100 mg BID and Diltiazem coumadin resumed Full code will need PT/Ot eval prior to discharge home Admission and Anticipated Discharge Date Admission Date: October 22, 2020 Subjective patient reports of feeling much better today no compalin of SOB or cough , no fever or chills HR been stable Physical Exam Constitutional: WD/WN, vitals as above Eyes: + anicteric sclerae ENMT: external ear and nose normal, oropharynx normal Neck: trachea midline, no thyromegaly Results & Data Results & Data ([facility]) Vital Signs (Past 12 Hours) Vital Signs Temp Pulse Pulse Resp BP BP BP 10/23/20 19:47 119 H 137/70 10/23/20 16:00 107 H 10/23/20 15:41 10/23/20 15:31 36.6 C 102 H 17 132/99 10/23/20 14:39 10/23/20 13:52 10/23/20 11:58 36.5 C 92 H 18 138/89 Pulse Ox Pulse Ox Pulse Ox Pulse Ox 10/23/20 19:47 10/23/20 16:00 10/23/20 15:41 95 10/23/20 15:31 96 10/23/20 14:39 96 10/23/20 13:52 95 95 10/23/20 11:58 100
[2020-10-23] MEDS: ATORVASTATIN 40 MG TAB PO SCH (21:48)
[2020-10-23] MEDS: traZODone HCL 100 MG TAB PO SCH (21:48)
[2020-10-23] MEDS: METOPROLOL SUCC 50MG EXT REL TAB PO SCH (21:48)
[2020-10-23] MEDS: CETIRIZINE HCL 10 MG TABLET PO SCH (21:49)
[2020-10-23] MEDS: ZOLPIDEM TARTRATE 5 MG TAB PO PRN (21:49)
[2020-10-23] MEDS ORDERED: ACETAMINOPHEN 325 MG TAB PO PRN (22:15)
[2020-10-24] MEDS: CHECK fentaNYL PATCH PLACEMENT SCH ×3 (01:08→17:07)
[2020-10-24 07:49] LABS: INR 1.4 (0.9-1.1); Prothrombin Time 13.9 Seconds (9.0-12.0)
[2020-10-24 07:56] LABS: BUN Creatinine Ratio 22.7 (10-20); Calcium 8.9 mg/dl (8.5-10.1); Creatinine Clr Calc Pharmacy 38.9 ml/min; Est GFR (African American) 37.9; Est GFR (Non-African American) 32.7; Potassium 3.4 mmol/L (3.5-5.1)
[2020-10-24] MEDS: FUROSEMIDE 80 MG TAB PO SCH ×2 (08:53→17:07)
[2020-10-24] MEDS: CHOLECALCIFEROL 1,000 UNITS 25 MCG TAB PO SCH (08:53)
[2020-10-24] MEDS: amLODIPine BESYLATE 5 MG TAB PO SCH (08:56)
[2020-10-24] MEDS: MULTIVITAMIN TAB PO SCH (08:56)
[2020-10-24] MEDS ORDERED: POTASSIUM CHLORIDE CRTAB 20 MEQ TABCR PO STA (08:57)
[2020-10-24] MEDS: AMOXICILLIN/CLAVULANATE 875 MG TAB PO SCH ×2 (08:57→17:06)
[2020-10-24] MEDS: GABAPENTIN 800 MG TAB PO SCH (08:57)
[2020-10-24] MEDS: METHOCARBAMOL 750 MG TABLET PO SCH ×2 (08:57→14:05)
[2020-10-24] MEDS: VENLAFAXINE HCL XR 75 MG CAPXR PO SCH (08:57)
[2020-10-24] MEDS: CALCITRIOL 0.25 MCG CAPSULE PO SCH (08:57)
[2020-10-24] MEDS: VENLAFAXINE HCL XR 150 MG CAPXR PO SCH (08:57)
[2020-10-24] MEDS: METOPROLOL SUCC 50MG EXT REL TAB PO SCH (08:57)
[2020-10-24] MEDS: PANTOprazole 40 MG TAB PO SCH (08:57)
[2020-10-24] MEDS: FLUTICASONE/VILANTEROL 200/25MCG 14 PUFFS/INHALER INH SCH (08:58)
[2020-10-24] MEDS: UMECLIDINIUM BROMIDE 62.5MCG/BLISTER 7 PUFFS/INHALER INH SCH (08:58)
[2020-10-24] MEDS: NICOTINE 21 MG/24 HR TDSY TD SCH (08:59)
[2020-10-24] MEDS ORDERED: predniSONE 20 MG TAB PO SCH (09:00)
[2020-10-24] MEDS: POTASSIUM CHLORIDE 10 MEQ TABCR PO SCH ×2 (09:00→14:05)
[2020-10-24] MEDS: INSULIN GLARGINE SOLOSTAR 100 UNITS/ML 3 ML PEN SC SCH (09:02)
[2020-10-24] MEDS: INSULIN ASPART 100 UNITS/ML 3 ML PEN SC SCH ×3 (09:02→17:29)
[2020-10-24] MEDS ORDERED: dilTIAZem HCL 180 MG CAPCR PO ONE (10:01)
[2020-10-24] MEDS: oxyCODONE HCL IR 5 MG TAB (IMMEDIATE RELEASE) PO PRN (11:42)
--- NOTE | 2020-10-24 12:43 | Cardiology Progress Note ---
Date of Service October 24, 2020 Assessment & Plan (1) Substernal chest pain: Patient is an extremely complex patient as outlined above. She carries underlying cardiac issues which appear to be stable. Recent diagnosis of COVID- 19 presents now with symptoms of severe headache cough with moderate sputum production and substernal chest pressure atypical for angina worsened by cough and movement/inspiration. Symptoms might be exacerbated by recent initiation of prednisone to therapies versus progression of underlying Covid infection. Cardiac enzymes are negative and EKGs are unchanged she remains in sinus rhythm despite history of paroxysmal atrial fibrillation. She does remain at risk for cardiac deterioration given underlying history of chronic diastolic heart dysfunction and paroxysmal atrial arrhythmias. She is also at significant risk for further pulmonary deterioration if any progression in Covid disease Patient has had no further chest pain or discomfort. Symptoms of headache and remain persistent but cough and pulmonary status appears stable despite Covid infection Patient is morning did lapse into atrial fibrillation likely in combination with stress of illness, beta-mana withdrawal and hypokalemia. Heart rate currently in the 80s to 90S but slightly better control. Patient to pass as required synchronized electrical cardioversion to control heart rate and symptoms Plan: Continue metoprolol succinate. I have increased diltiazem to 180 mg p.o. daily extended release Supplement potassium likely being excreted secondary to corticosteroids. Patient will need follow-up with cardiology outpatient in 2 to 3 weeks post hospital discharge and reassess need for further interventions at that time (2) Productive cough: (3) Chronic respiratory failure: (4) COVID-19: (5) Acute headache: (6) Paroxysmal atrial fibrillation: (7) S/P MVR (mitral valve repair): Admission and Anticipated Discharge Date Admission Date: October 22, 2020 Subjective Care discussed with caregivers. Patient's chart, telemetry laboratory studies all personally reviewed. Care discussed with caregivers. Patient not examined Results & Data ([place]) Vital Signs (Past 12 Hours) Vital Signs Temp Pulse Pulse Resp BP BP Pulse Ox 10/24/20 11:38 36.3 C L 97 H 20 118/82 93 10/24/20 07:06 37.1 C 93 H 20 144/94 H 99 10/24/20 06:00 10/24/20 04:00 36.3 C L 84 20 112/64 94 10/24/20 03:22 86 18 97 10/24/20 01:57 115 H Pulse Ox 10/24/20 11:38 10/24/20 07:06 10/24/20 06:00 96 10/24/20 04:00 10/24/20 03:22 10/24/20 01:57 Laboratory Results Laboratory Results - last 24 hr 10/23/20 10/23/20 10/23/20 16:40 21:17 21:20 PT INR Sodium Potassium Chloride Carbon Dioxide Anion Gap BUN Creatinine Est Cr Clr Drug Dosing Est GFR ( Amer) Est GFR (Non-Af Amer) BUN/Creatinine Ratio Glucose POC Glucose 253 H 354 H* 359 H* Calcium Magnesium 10/24/20 10/24/20 10/24/20 06:48 06:48 07:50 PT 13.9 H INR 1.4 H Sodium 141 Potassium 3.4 L Chloride 102 Carbon Dioxide 35 H Anion Gap 4.0 BUN 37 H Creatinine 1.64 H Est Cr Clr Drug Dosing 38.9 Est GFR ( Amer) 37.9 Est GFR (Non-Af Amer) 32.7 BUN/Creatinine Ratio 22.7 H Glucose 159 H POC Glucose 150 H Calcium 8.9 Magnesium 2.0 10/24/20 11:37 PT INR Sodium Potassium Chloride Carbon Dioxide Anion Gap BUN Creatinine Est Cr Clr Drug Dosing Est GFR ( Amer) Est GFR (Non-Af Amer) BUN/Creatinine Ratio Glucose POC Glucose 168 H Calcium Magnesium (1) Acute headache Headache type: unspecified Intractability: not intractable Qualified Code(s): R51.9 - Headache, unspecified
--- NOTE | 2020-10-24 13:31 | Discharge Summary ---
Date of Service October 24, 2020 Admission HPI Per Admitting Provider DICTATED BY: Ronak Nguyen MD DATE OF ADMISSION: 10/21/2020 CHIEF COMPLAINT: Headache and chest pain. HISTORY OF PRESENT ILLNESS: This is a 65-year-old female with past medical history significant for hyperlipidemia, hypothyroidism, type 2 diabetes, chronic respiratory failure with hypoxia, on 2 liters oxygen all the time, obstructive sleep apnea on CPAP at bedtime, COPD, history of cor pulmonale, history of paroxysmal atrial fibrillation, venous thrombosis, essential hypertension, venous stasis, chronic kidney disease stage III, Lynn's esophagus, cervical disc displacement, generalized osteoarthrosis, lumbar degenerative disc disease, senile osteoporosis, anemia, tobacco use disorder, status post mitral valve repair, depression, PTSD, who lives alone, ambulates with a walker, presents with chest pain and headache. The patient says she gets shots to hips once in a while and she was due for a shot and prior to the shot when they checked for COVID, it came back positive on 10/11/2020. She does not know how she got it and she did not have any symptoms at that time. She gets a caregiver at home.But last 2-3 days she started developing cough with whitish yellow phlegm, but denies any fever, chills, denies any shortness of breath. Her PCP put her on prednisone .Today she developed chest pain, pressure-like feeling, like someone sitting on her chest, 7/10 in severity, no radiation, and also severe headache which prompted her to come to the ER. Initial workup is negative. She is chronically on 2 liters oxygen. And she is saturating fine on 2 liters and currently her chest pain and headaches are improved. Denies any loss of sense of smell or taste. Appetite is not that good for the last 2 days. No nausea, vomiting. She has some abdominal discomfort, but no diarrhea, no constipation, no blood in the stool or black stools. Normal bladder movements. No blurred visions. She has complaints of right earache for the last few days. No runny nose, no sore throat, ambulating with a walker okay. Currently resting comfortably and hemodynamically stable. Principal Diagnosis COVID 19 PNEUMONIA COMMUNITY ACQUIRED /BACTERIAL PNEUMONIA AFIB RVR Discharge Exam Constitutional WD/WN, vitals as above + ill appearing and + obese; no acute distress Eyes + anicteric sclerae and PERRL ENMT external ear and nose normal, oropharynx normal Neck trachea midline, no thyromegaly Respiratory Auscultation: + diminished lung sounds (With coarse crackles right greater than left) Cardiovascular Rate/Rhythm: regular rate, regular rhythm and + irregularly irregular Heart Sounds: normal S1 and normal S2; no gallop and no murmur Palpation: normal PMI Vessels: normal carotid upstroke and radial pulses present; no JVD and no c arotid bruit Extremities: no edema Gastrointestinal (Abdomen) normal bowel sounds, soft, nontender, no hepatosplenomegaly Musculoskeletal no cyanosis or clubbing, extremities motor strength 5/5 Skin no rashes, warm and dry Neurologic PERRL, EOMI, accommodation nl, no face palsy, no dysarthria Psychiatric A+Ox3, euthymic affect Discharge Data Allergies Allergy/AdvReac Type Severity Reaction Status Date / Time bee venom protein (honey bee) Allergy Severe SWELLING Verified 10/25/20 03:04 lisinopril Allergy Intermediate FACE Verified 10/25/20 03:04 SWELLING potato Allergy Intermediate BBQ chips Verified 10/25/20 03:04 - facial swelling metronidazole Allergy Mild FACE Verified 10/25/20 03:04 SWELLING strawberry Allergy Mild HIVES Verified 10/25/20 03:04 alprazolam Allergy Unknown RED FACE, Verified 10/25/20 03:04 FACE SWELLING lactose AdvReac Intermediate VOMTING Verified 10/25/20 03:04 DIARRHEA ABDOMINAL PAIN-LACTOSE INTOLERANCE prednisone AdvReac Mild AGGRESSIVE Verified 10/25/20 03:04 BEHAVIOR colesevelam AdvReac Unknown unknown Verified 10/25/20 03:04 lithium AdvReac Unknown jitters Verified 10/25/20 03:04 Consultations 10/21/20 00:05 ED Decision to Admit Stat 10/21/20 06:19 Consult Case Management - Discharge Planning Routine 10/21/20 08:00 Consult Cardiology Routine Ordered Studies 10/20/20 21:07 CT head/brain wo con Urgent Hospital Course (1) COVID-19: COVID-19 positive: Diagnosed on 10/11/2020. symptoms, but for last 2-3 days, developed cough with phlegm. no hypoxia ( on chronic 2 L 02 via nasal canula) Cardiomegaly with pulmonary vascular congestion and bilateral reticular opacities suggestive of pulmonary edema versus interstitial pneumonitis. started her on Decadron 6 mg daily. abx changed to Augmentin per sputum culture (2) Chronic respiratory failure: due to COPD , on 2 L home o2 continued Chest pain /chest heaviness : presented with substernal chest pain symptoms has resolved appreciate input form Cardiology no evidence of acute coronary event serial Cardiac enzymes are negative and EKGs are unchanged chest discomfort /heaviness possible due to cough symptoms , covid pneumonitis cont tx for infection as above no further cardiac work up needed HX OF PAROXYSMAL AFIB: beta mana dose adjusted by cardiology : Toprol XL 100 mg BID and Diltiazem coumadin resumed Full code no complain of chest pain ,no SOB , no cough no fever or chills stable to be discharged home today Total Time Total Time Spent Total Time Spent (In Minutes): 35 mins Total Time Includes: Discharge Planning and Medication Reconciliation Discharge Plan Discharge Items Patient Disposition: Home - Home Health Services Reason For Visit: HEADACHE, CHEST PAIN Discharge Diagnosis: COVID 19 PNEUMONIA COMMUNITY ACQUIRED /BACTERIAL PNEUMONIA AFIB RVR Activity: Resume your previous activity Non-emergency contact: Primary Care Provider Call non-emergency contact if: you have any medication questions Follow-up/Referrals: Manoj Goins DO [Primary Care Provider] - 10/27/20 2:00 pm (Date & Time 10/27/2020 2:00 PM Provider Manoj Goins DO Department General Internal Medicine [facility] PLEASE NOTE THAT THIS IS A TELEPHONE CALL APPOINTMENT. YOUR PROVIDER WILL CALL YOU AT THE APPOINTMENT TIME. IF YOU HAVE ANY QUESTIONS REGARDING YOUR APPOINTMENT, PLEASE CALL ) Diet: Heart Healthy Addtl Attending Provider Instructions: Please take all medications as instructed on discharge list below. Medication changes ; Diltiazem dose increased to 180 mg daily ( was on 120 mg daily ) Do not take Metoprolol Tartrate New med: Metoprolol Succinate 100 mg twice daily Antibiotic : Augmentin 1 tablet twice daily for 5 days ( for pneumonia ) please take over the counter lactobacillus 1 capsule twice daily for at least 1 week to prevent diarrhea /loose stool while taking antibiotics It is recommended that you follow-up with your primary care physician within 1-2 weeks of hospital discharge to ensure you are still doing well. It was a pleasure taking care of you! Please call if you have any questions or problems. You can reach a [facility] hospitalist on duty at [facility] 24 hours a day by calling [phone] Pending Studies at Discharge: No Stand-Alone Forms: My [facility] [address] [facility], Smoking Cessation Medications and DC Order Prescriptions: New diltiazem HCl 180 mg Capsule,Extended Release 24hr 180 mg PO QAM 30 Days Qty: 30 RF: 0 metoprolol succinate 50 mg Tablet Extended Release 24 Hr 100 mg PO BID 30 Days Qty: 120 RF: 0 amoxicillin-pot clavulanate [Augmentin] 875-125 mg Tablet 1 tab PO BIDM 5 Days Qty: 10 RF: 0 Continued prednisone 20 mg tablet 20 mg PO QAM RF: 0 gabapentin 800 mg Tablet 800 mg PO BID RF: 0 alendronate 70 mg tablet 70 mg PO WK RF: 0 warfarin 5 mg tablet 7.5 mg PO WK RF: 0 potassium chloride 10 mEq tablet extended release 10 meq PO TID RF: 0 pantoprazole 40 mg tablet,delayed release (DR/EC) 40 mg PO QAM RF: 0 Lantus U-100 Insulin 100 unit/mL solution 16 unit SUBCUT BID RF: 0 amlodipine 5 mg tablet 5 mg PO QAM RF: 0 oxycodone 10 mg tablet 10 mg PO Q6 PRN (Reason: Pain) RF: 0 nitroglycerin [Nitrostat] 0.4 mg tablet, sublingual 0.4 mg sublingual DIRECTED PRN (Reason: Chest Pain) RF: 0 multivitamin Tablet 1 tab PO QAM RF: 0 furosemide 40 mg Tablet 80 mg PO BID RF: 0 atorvastatin 40 mg Tablet 40 mg PO HS RF: 0 fentanyl 50 mcg/hr Patch 72 Hour 50 mcg TRANSDERMAL [id number] RF: 0 cetirizine 10 mg Tablet 10 mg PO HS RF: 0 venlafaxine 150 mg Capsule,Extended Release 24hr 150 mg PO QAM RF: 0 ondansetron 8 mg Tablet,Disintegrating 8 mg PO BID PRN (Reason: Nausea) RF: 0 methocarbamol 750 mg Tablet 750 mg PO TID RF: 0 warfarin 5 mg Tablet 5 mg PO [id number] RF: 0 epinephrine [EpiPen] 0.3 mg/0.3 mL Auto-Injector 0.3 mg IM DIRECTED PRN (Reason: Allergic Reaction) RF: 0 docusate sodium 100 mg Tablet 100 mg PO DAILY PRN (Reason: Constipation) RF: 0 Spiriva with HandiHaler 18 mcg Capsule, W/Inhalation Device 1 cap INHALATION QAM RF: 0 cholecalciferol (vitamin D3) [Vitamin D3] 1,000 unit Tablet 1,000 unit PO QAM RF: 0 venlafaxine 75 mg Capsule,Extended Release 24hr 75 mg PO QAM RF: 0 trazodone 100 mg Tablet 200 mg PO HS RF: 0 zolpidem 5 mg Tablet 5 mg PO HS PRN (Reason: Sleep) RF: 0 levalbuterol HCl 1.25 mg/3 mL solution for nebulization 1.25 mg INHALATION Q4H PRN (Reason: Wheezing) RF: 0 albuterol sulfate [Proventil HFA] 90 mcg/actuation HFA aerosol inhaler 2 puffs INH Q6H PRN (Reason: Shortness Of Breath Or Wheezing) RF: 0 fluticasone propion-salmeterol [Advair Diskus] 250-50 mcg/dose blister with device 1 inh INHALATION BID RF: 0 calcitriol 0.25 mcg capsule 0.25 mcg PO UD RF: 0 Discontinued diltiazem HCl 120 mg capsule,extended release 24hr 120 mg PO QAM RF: 0 metoprolol tartrate 50 mg Tablet 100 mg PO BID Qty: 120 RF: 2 Discharge Orders: Discharge Order (Routine); Ordered 10/24/20 Ordered By: Lizeth Hollins/Other Patient Handouts: Managing Type 2 Diabetes Admission Data Admit Date/Time: 10/22/20 14:39 Attending Provider: Lizeth Martin Admit Provider: Ronak Nguyen Primary Care Provider: Manoj Goins Other Providers: Ronak Nguyen ; Mikey Jaquez ; Chico Underwood ; Mc House ; Sree Quinonez ; Apollo Figueroa ; Javan Maravilla ; Ninoska Zamora ; Kenia Guzman ; Campos Good Other Interventions: Discharge Summary Assessment (RN) Last Done: 10/24/20 14:39
[2020-10-24] MEDS: LEVALBUTEROL HCL 1.25 MG/3 ML NEB INH PRN (16:17)
[2020-10-25] MEDS ORDERED: ALENDRONATE SODIUM 70 MG TAB PO SCH (06:30)
[2020-10-25] MEDS ORDERED: dilTIAZem HCL 180 MG CAPCR PO SCH (09:00)
== END 2020-10-24 18:10 | disposition home health service (06) | DRG 177 ==
LOC: 2S 20:42 → ED 20:42 → 2S 10-21 05:44

== ENCOUNTER 2020-10-25 02:31 | Inpatient (IN) ==
[2020-10-25 02:57] LABS: Basophils # (auto) 0.01 K/uL (0-0.2); Basophils % (auto) 0.1 %; Eosinophils # (auto) 0.04 K/uL (0-0.5); Eosinophils % (auto) 0.4 %; Hematocrit (blood only) 38.5 % (37-47); Hemoglobin 12.9 g/dL (12.0-16.0); Immature Granulocytes # (auto) 0.05 K/uL (0.00-0.02); Immature Granulocytes % (auto) 0.5 %; Lymphocytes # (auto) 2.86 K/uL (1.2-3.4); Mean Corpuscular Hemoglobin 29.5 pg (25-34); Mean Corpuscular Hgb Conc 33.5 g/dL (32-36); Mean Corpuscular Volume 88.1 fL (80-100); Mean Platelet Volume 9.6 fL (7.4-10.4); Monocytes % (auto) 6.6 %; Neutrophils # (auto) 6.93 K/uL (1.4-6.5); Neutrophils % (auto) 65.4 %; Platelet Count 263 K/uL (130-400); RDW Coefficient of Variation 13.4 % (11.5-14.5); RDW Standard Deviation 43.5 fL (36.4-46.3); Red Blood Count 4.37 M/uL (4.2-5.4); White Blood Count 10.59 K/uL (4.8-10.8)
[2020-10-25 03:07] LABS: INR 1.9 (0.9-1.1); Partial Thromboplastin Ratio 1.1; Partial Thromboplastin Time 28.4 Seconds (21.0-31.0)
[2020-10-25 03:19] LABS: Albumin Globulin Ratio 0.9 (0.9-2); Albumin Level 2.9 gm/dl (3.4-5.0); BUN Creatinine Ratio 21.2 (10-20); Bilirubin,Total 0.3 mg/dl (0.2-1); Calcium 8.2 mg/dl (8.5-10.1); Creatinine Clr Calc Pharmacy 31.7 ml/min; Est GFR (African American) 27.8; Globulin 3.4 gm/dl (2.5-4.0); Potassium 3.6 mmol/L (3.5-5.1); Total Protein 6.3 gm/dl (6.4-8.2); Troponin I 0.026 ng/ml (0-0.045)
--- NOTE | 2020-10-25 04:41 | Emergency Department Note ---
History of Present Illness General Chief complaint: Chest Pain Stated complaint: CHEST PAIN Time Seen by Provider: 10/25/20 02:40 History of Present Illness Maximum Pain Intensity: 0 This is a 65-year-old female presenting to the emergency department for evaluation of momentary central chest pain that began approximately 1 hour prior to arrival. The patient has an extensive past medical history including atrial fibrillation, COPD, pulmonary hypertension, chronic kidney disease, diabetes, and recent COVID-19 infection. The patient was admitted to this facility recently, and was discharged approximately 7 hours ago. The patient states that she went home, went to bed, and awoke with her discomfort. The patient contacted 911 and now presents back to the emergency department via ambulance. She states that her pain was only a few moments in duration, and now has completely resolved. The pain did not radiate. She rates her current discomfort a 0/10 and did not take anything [id number] or her prescription nitroglycerin for her symptoms. Home Medications Medication Instructions Recorded Confirmed Type Spiriva with HandiHaler 1 cap INHALATION QAM 06/19/18 10/25/20 History atorvastatin 40 mg PO HS 06/19/18 10/25/20 History cetirizine 10 mg PO HS 06/19/18 10/25/20 History cholecalciferol (vitamin D3) 1,000 unit PO QAM 06/19/18 10/25/20 History [Vitamin D3] docusate sodium 100 mg PO DAILY PRN 06/19/18 10/25/20 History epinephrine [EpiPen] 0.3 mg IM DIRECTED PRN 06/19/18 10/25/20 History fentanyl 50 mcg TRANSDERMAL [id number] 06/19/18 10/25/20 History furosemide 80 mg PO BID 06/19/18 10/25/20 History methocarbamol 750 mg PO TID 06/19/18 10/25/20 History multivitamin 1 tab PO QAM 06/19/18 10/25/20 History ondansetron 8 mg PO BID PRN 06/19/18 10/25/20 History venlafaxine 150 mg PO QAM 06/19/18 10/25/20 History warfarin 5 mg PO [id number] 06/19/18 10/25/20 History trazodone 200 mg PO HS 09/14/18 10/25/20 History venlafaxine 75 mg PO QAM 09/14/18 10/25/20 History zolpidem 5 mg PO HS PRN 09/14/18 10/25/20 History gabapentin 800 mg PO BID 05/28/19 10/25/20 History alendronate 70 mg tablet 70 mg PO WK tab 06/10/19 10/25/20 History warfarin 7.5 mg PO WK 09/19/19 10/25/20 History Lantus U-100 Insulin 16 unit SUBCUT BID 03/02/20 10/25/20 History pantoprazole 40 mg PO QAM 03/02/20 10/25/20 History potassium chloride 10 meq PO TID 03/02/20 10/25/20 History albuterol sulfate [Proventil HFA] 2 puffs INH Q6H PRN 03/24/20 10/25/20 History levalbuterol HCl 1.25 mg INHALATION Q4H PRN 03/24/20 10/25/20 History amlodipine 5 mg PO QAM 05/15/20 10/25/20 History nitroglycerin [Nitrostat] 0.4 mg SUBLINGUAL DIRECTED PRN 07/02/20 10/25/20 History oxycodone 10 mg PO Q6 PRN 07/02/20 10/25/20 History fluticasone propion-salmeterol 1 inh INHALATION BID 08/01/20 10/25/20 History [Advair Diskus] prednisone 20 mg tablet 20 mg PO QAM 09/12/20 10/25/20 History calcitriol 0.25 mcg PO UD 10/21/20 10/25/20 History amoxicillin-pot clavulanate 1 tab PO BIDM 5 Days #10 tab 10/24/20 10/25/20 Rx [Augmentin] diltiazem HCl 180 mg PO QAM 30 Days #30 cap 10/24/20 10/25/20 Rx metoprolol succinate 100 mg PO BID 30 Days #120 tab 10/24/20 10/25/20 Rx Allergies Allergy/AdvReac Type Severity Reaction Status Date / Time bee venom protein (honey bee) Allergy Severe SWELLING Verified 10/25/20 03:04 lisinopril Allergy Intermediate FACE Verified 10/25/20 03:04 SWELLING potato Allergy Intermediate BBQ chips Verified 10/25/20 03:04 - facial swelling metronidazole Allergy Mild FACE Verified 10/25/20 03:04 SWELLING strawberry Allergy Mild HIVES Verified 10/25/20 03:04 alprazolam Allergy Unknown RED FACE, Verified 10/25/20 03:04 FACE SWELLING lactose AdvReac Intermediate VOMTING Verified 10/25/20 03:04 DIARRHEA ABDOMINAL PAIN-LACTOSE INTOLERANCE prednisone AdvReac Mild AGGRESSIVE Verified 10/25/20 03:04 BEHAVIOR colesevelam AdvReac Unknown unknown Verified 10/25/20 03:04 lithium AdvReac Unknown jitters Verified 10/25/20 03:04 Past Med/Surg History Medical History Anxiety Asthma 3LPM via n/c mostly continuous (although patient states she does not wear this all the time) Atrial fibrillation a. fib/a. flutter s/p cardioversion (2016) Lynn esophagus Bipolar disorder Chronic back pain Chronic cor pulmonale Chronic kidney disease stage III Chronic obstructive pulmonary disease 3LPM via n/c mostly continuous (although patient states she does not wear th is all the time) COVID-19 virus detected + 10/11/20 CVA (cerebral vascular accident) 2004 (per records; patient denies) Degeneration of cervical intervertebral disc Depression Diastolic CHF, chronic DM type 2 (diabetes mellitus, type 2) Fibromyalgia Gastroparesis GERD (gastroesophageal reflux disease) History of cardioversion History of Clostridium difficile infection History of DVT (deep vein thrombosis) left "hand" 2004- on AC HTN (hypertension) Hyperlipidemia Hypothyroidism no current medication per doctor orders. 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 Obesity Obstructive sleep apnea treated with BiPAP cpap night Osteoarthritis Peripheral neuropathy Post traumatic stress disorder Surgical History History of adenoidectomy History of appendectomy LAPAROSCOPY History of cardiac cath 2004= no stents History of carpal tunnel release left History of cataract surgery BILATERAL History of cholecystectomy LAPAROSCOPY History of colonoscopy History of esophagogastroduodenoscopy (EGD) History of hysterectomy EMIGDIO WITH BSO History of mitral valve repair 2004 + resection fibroelastoma History of tonsillectomy Hx of lumpectomy right breast BENIGN Hx of tubal ligation Hx of umbilical hernia repair S/P trigger finger release RIGHT/LEFT Family History Mother Family history of diabetes mellitus Sister Family history of diabetes mellitus Ulcerative colitis Social History Smoking Status: Current every day smoker Tobacco Type: Cigarettes Cigarettes Per Day: 10; Second Hand Exposure: Yes; Tobacco Cessation Education Requested by Patient: No Hx Alcohol Use: No Hx Substance Use: No Preferred Language: Armenian Communication Ability: Effective Visual Impairment: No Limitations Air Reduction Equipment Operator Required: No Beliefs That Will Affect Care: None marital status: / Current Living Situation: Alone Current Living Situation Comment: APARTMENT Feels Safe at Home: Yes Assistive Devices: CPAP, Denture - Upper, Denture - Lower, Oxygen - Continuous and Walker Review of Systems A total of 10 systems reviewed and were otherwise negative Physical Exam Vital Signs Vital Signs - 24 hr 10/25/20 02:35 10/25/20 02:47 10/25/20 02:50 Temperature 36.8 C Temperature Source Oral Pulse Rate 78 Pulse Rate [Right Finger] Pulse Rhythm Irregular Respiratory Rate 18 Respiratory Effort / Characteristics Non-Labored Respiratory Depth Normal Normal Blood Pressure 103/73 Blood Pressure [Right Arm] Blood Pressure Mean 83 Blood Pressure Mean [Right Arm] Blood Pressure Position Lying Blood Pressure Position [Right Arm] Pulse Oximetry 99 99 96 Oxygen Delivery Method Nasal Cannula Nasal Cannula Room Air Oxygen Flow Rate 2 2 Sepsis Recent Fever Within 48 Hours No Sepsis New/Unexplained Change in Mental Status No Sepsis Action Taken by Nursing No Action Required 10/25/20 03:50 10/25/20 05:50 Temperature Temperature Source Pulse Rate Pulse Rate [Right Finger] 76 74 Pulse Rhythm Respiratory Rate 18 16 Respiratory Effort / Characteristics Respiratory Depth Blood Pressure Blood Pressure [Right Arm] 112/70 109/75 Blood Pressure Mean Blood Pressure Mean [Right Arm] 84 86 Blood Pressure Position Blood Pressure Position [Right Arm] Lying Lying Pulse Oximetry 97 97 Oxygen Delivery Method Room Air Nasal Cannula Oxygen Flow Rate 2 Sepsis Recent Fever Within 48 Hours Sepsis New/Unexplained Change in Mental Status Sepsis Action Taken by Nursing VITALS: Vitals are noted on the nurse's note and reviewed by myself. Vital signs stable. GENERAL: Chronically ill white female who is in her normal state of health HEAD: Normocephalic atraumatic. NECK: Supple without nuchal rigidity. No lymphadenopathy. No thyromegaly. Cervical spine is nontender. HEART: Irregularly irregular LUNGS: Clear to auscultation bilaterally without wheezes, rales or rhonchi. No retractions or accessory muscle use. ABDOMEN: Positive normal bowel sounds x 4. Soft, nontender, without masses or organomegaly. No guarding or rebound tenderness. MUSCULOSKELETAL: No muscle atrophy, erythema, or edema noted. NEURO: Patient was alert and oriented to person place and time. CN II through XII grossly intact. Course Administered Medications Amlodipine Besylate (Amlodipine Besylate 5 Mg Tab) 5 mg PO QAM [facility] Stop: 11/24/20 08:59 Last Admin: 10/25/20 10:06 Dose: 5 mg Documented by: [id number] Amoxicillin/Clavulanate Potassium (Amoxicillin/Clavulanate 875 Mg Tab) 1 tab PO BIDM [facility] Stop: 10/29/20 17:01 Last Admin: 10/25/20 17:21 Dose: 1 tab Documented by: [id number] Atorvastatin Calcium (Atorvastatin 40 Mg Tab) 40 mg PO HS [facility] Stop: 11/24/20 20:59 Last Admin: 10/25/20 21:09 Dose: 40 mg Documented by: [id number] Calcitriol (Calcitriol 0.25 Mcg Capsule) 0.25 mcg PO DAILY [facility] Stop: 11/24/20 08:59 Last Admin: 10/25/20 10:10 Dose: 0.25 mcg Documented by: [id number] Cetirizine HCl (Cetirizine Hcl 10 Mg Tablet) 10 mg PO HS [facility] Stop: 11/24/20 20:59 Last Admin: 10/25/20 21:11 Dose: 10 mg Documented by: [id number] Diltiazem HCl (Diltiazem Hcl 180 Mg Capcr) 180 mg PO QAM [facility] Stop: 11/24/20 08:59 Last Admin: 10/25/20 10:06 Dose: 180 mg Documented by: [id number] Fentanyl (Fentanyl 50 Mcg/Hr Tdsy) 50 mcg TD Q72H [facility] Stop: 11/08/20 08:59 Last Admin: 10/25/20 10:14 Dose: 50 mcg Documented by: [id number] Fluticasone/Vilanterol (Fluticasone/Vilanterol 100/25mcg 14 Puffs/Inhaler) 1 puffs INH DAILY [facility] Stop: 11/24/20 08:59 Last Admin: 10/25/20 10:02 Dose: 1 puffs Documented by: [id number] Gabapentin (Gabapentin 800 Mg Tab) 800 mg PO BID [facility] Stop: 11/24/20 08:59 Last Admin: 10/25/20 21:10 Dose: 800 mg Documented by: [id number] Admin: 10/25/20 10:05 Dose: 800 mg Documented by: [id number] Sodium Chloride (Nss 1000ml) 1,000 mls @ 50 mls/hr IV .Q20H [facility] Stop: 11/24/20 06:55 Last Admin: 10/25/20 21:15 Dose: 50 mls/hr Documented by: [id number] Infusion: 10/25/20 21:15 Dose: 50 mls/hr Documented by: [id number] Admin: 10/25/20 10:02 Dose: 50 mls/hr Documented by: [id number] Insulin Aspart (Insulin Aspart 100 Units/Ml 3 Ml Pen) 0 units SC ACHS [facility] Stop: 11/24/20 07:29 Last Admin: 10/25/20 21:13 Dose: Not Given Documented by: [id number] Cosigned by: [id number] Admin: 10/25/20 17:25 Dose: 10 units Documented by: [id number] Cosigned by: [id number] Admin: 10/25/20 12:38 Dose: Not Given Documented by: [id number] Cosigned by: [id number] Admin: 10/25/20 10:10 Dose: Not Given Documented by: [id number] Insulin Glargine (Insulin Glargine Solostar 100 Units/Ml 3 Ml Pen) 8 units SC B ID [facility] Stop: 11/24/20 08:59 Last Admin: 10/25/20 21:14 Dose: 8 units Documented by: [id number] Cosigned by: [id number] Admin: 10/25/20 10:09 Dose: 8 units Documented by: [id number] Cosigned by: [id number] Methocarbamol (Methocarbamol 750 Mg Tablet) 750 mg PO TID [facility] Stop: 11/24/20 08:59 Last Admin: 10/25/20 21:11 Dose: 750 mg Documented by: [id number] Admin: 10/25/20 13:42 Dose: 750 mg Documented by: [id number] Admin: 10/25/20 10:04 Dose: 750 mg Documented by: [id number] Metoprolol Succinate (Metoprolol Succ 50mg Ext Rel Tab) 100 mg PO BID [facility] Stop: 11/24/20 08:59 Last Admin: 10/25/20 21:11 Dose: 100 mg Documented by: [id number] Admin: 10/25/20 10:05 Dose: 100 mg Documented by: [id number] Miscellaneous (Fentanyl Patch Remove & Waste) 1 ea N/A Q3D [facility] Stop: 11/24/20 08:58 Last Admin: 10/25/20 10:10 Dose: 1 ea Documented by: [id number] Cosigned by: [id number] Miscellaneous (Check Fentanyl Patch Placement) 1 ea N/A QS [facility] Stop: 11/24/20 07:59 Last Admin: 10/25/20 15:48 Dose: 1 ea Documented by: [id number] Admin: 10/25/20 10:15 Dose: 1 ea Documented by: [id number] Multivitamins (Multivitamin Tab) 1 tab PO QAM [facility] Stop: 11/24/20 08:59 Last Admin: 10/25/20 10:06 Dose: 1 tab Documented by: [id number] Nicotine (Nicotine 14 Mg/24 Hr Patch) 14 mg TD QAM [facility] Stop: 11/24/20 15:59 Last Admin: 10/25/20 17:21 Dose: 14 mg Documented by: [id number] Oxycodone HCl (Oxycodone Hcl Ir 5 Mg Tab (Immediate Release)) 10 mg PO Q6 PRN PRN Reason: Pain Stop: 11/08/20 06:55 Last Admin: 10/25/20 15:48 Dose: 10 mg Documented by: [id number] Pantoprazole Sodium (Pantoprazole 40 Mg Tab) 40 mg PO BID [facility] Stop: 11/24/20 20:59 Last Admin: 10/25/20 21:09 Dose: 40 mg Documented by: [id number] Polyethylene Glycol (Polyethylene (Miralax) 17 Gm Pack) 17 gm PO DAILY PRN PRN Reason: Constipation Stop: 11/24/20 06:55 Last Admin: 10/25/20 15:48 Dose: 17 gm Documented by: [id number] Prednisone (Prednisone 10 Mg Tablet) 10 mg PO DAILY [facility] Stop: 11/24/20 08:59 Last Admin: 10/25/20 10:03 Dose: 10 mg Documented by: [id number] Trazodone HCl (Trazodone Hcl 100 Mg Tab) 200 mg PO [facility] Stop: 11/24/20 20:59 Last Admin: 10/25/20 21:09 Dose: 200 mg Documented by: [id number] Umeclidinium [place] (Umeclidinium [place] 62.5mcg/Blister 7 Puffs/Inhaler) 1 puffs INH [facility] Stop: 11/24/20 08:59 Last Admin: 10/25/20 10:03 Dose: 1 puffs Documented by: [id number] Venlafaxine HCl (Venlafaxine Hcl Xr 150 Mg Capxr) 150 mg PO [facility] Stop: 11/24/20 08:59 Last Admin: 10/25/20 10:04 Dose: 150 mg Documented by: [id number] Venlafaxine HCl (Venlafaxine Hcl Xr 75 Mg Capxr) 75 mg PO [facility] Stop: 11/24/20 08:59 Last Admin: 10/25/20 10:04 Dose: 75 mg Documented by: [id number] Vitamin D (Cholecalciferol 1,000 Units 25 Mcg Tab) 1,000 units PO [facility] Stop: 11/24/20 08:59 Last Admin: 10/25/20 10:05 Dose: 1,000 units Documented by: [id number] Warfarin Sodium (Warfarin Sod 5 Mg Tab) 5 mg PO [id number] [facility] Stop: 11/24/20 15:59 Last Admin: 10/25/20 15:48 Dose: 5 mg Documented by: [id number] Discontinued Medications Pantoprazole Sodium (Pantoprazole 40 Mg Tab) 40 mg PO [facility] Stop: 11/24/20 08:59 Last Admin: 10/25/20 10:03 Dose: 40 mg Documented by: [id number] Potassium Chloride (Potassium Chloride Crtab 20 Meq Tabcr) 20 meq PO ONE ONE Stop: 10/25/20 19:46 Last Admin: 10/25/20 21:08 Dose: 20 meq Documented by: [id number] Medical Decision Making Differential Diagnosis Differential diagnosis includes, but is not limited to: Myocardial infarction, dysrhythmia, pericarditis, pneumothorax, aortic aneurysm/dissection, DVT/PE, anxiety, GERD, PUD, electrolyte imbalance, thyroid disorder, pneumonia, bronchitis, pancreatitis, and others Laboratory Data Result diagrams: 10/25/20 02:45 10/25/20 02:45 Lab Results 10/25/20 10/25/20 10/25/20 Range/Units 02:45 02:45 02:45 WBC 10.59 (4.8-10.8) K/uL RBC 4.37 (4.2-5.4) M/uL Hgb 12.9 (12.0-16.0) g/dL Hct 38.5 (37-47) % MCV 88.1 (80-100) fL MCH 29.5 (25-34) pg MCHC 33.5 (32-36) g/dL RDW Std Deviation 43.5 (36.4-46.3) fL RDW Coeff of King 13.4 (11.5-14.5) % Plt Count 263 (130-400) K/uL MPV 9.6 (7.4-10.4) fL Immature Gran % (Auto) 0.5 % Neut % (Auto) 65.4 % Lymph % (Auto) 27.0 % Mcdonald % (Auto) 6.6 % Eos % (Auto) 0.4 % Baso % (Auto) 0.1 % Neut # (Auto) 6.93 H (1.4-6.5) K/uL Lymph # (Auto) 2.86 (1.2-3.4) K/uL Mcdonald # (Auto) 0.70 H (0.11-0.59) K/uL Eos # (Auto) 0.04 (0-0.5) K/uL Baso # (Auto) 0.01 (0-0.2) K/uL Immature Gran # (Auto) 0.05 H (0.00-0.02) K/uL PT 18.0 H (9.0-12.0) Seconds INR 1.9 H (0.9-1.1) APTT 28.4 (21.0-31.0) Seconds PTT Ratio 1.1 Sodium 132 L D (136-145) mmol/L Potassium 3.6 (3.5-5.1) mmol/L Chloride 95 L (98-107) mmol/L Carbon Dioxide 30 (21-32) mmol/L Anion Gap 7.0 (3-11) BUN 45 H (7-18) mg/dl Creatinine 2.12 H D (0.6-1.2) mg/dl Est Cr Clr Drug Dosing 31.7 ml/min Est GFR ( Amer) 27.8 Est GFR (Non-Af Amer) 24.0 BUN/Creatinine Ratio 21.2 H (10-20) Glucose 200 H (70-99) mg/dl Calcium 8.2 L (8.5-10.1) mg/dl Total Bilirubin 0.3 (0.2-1) mg/dl AST 25 (15-37) U/L ALT 45 (12-78) U/L Alkaline Phosphatase 56 (45-117) U/L Troponin I 0.026 (0-0.045) ng/ml Total Protein 6.3 L (6.4-8.2) gm/dl Albumin 2.9 L (3.4-5.0) gm/dl Globulin 3.4 (2.5-4.0) gm/dl Albumin/Globulin Ratio 0.9 (0.9-2) Imaging Data Radiologist's Impression: XR chest 1V portable CLINICAL HISTORY: Atypical chest pain and COMPARISON STUDY: October 20, 2020 FINDINGS: The heart is enlarged. A prosthetic valve is again visualized. There is diffuse elevation of interstitium. The findings are consistent with pulmonary edema although interstitial pneumonitis could appear similar. There is no lobar consolidation[there is a stable right axillary region lung herniation. IMPRESSION: Stable cardiomegaly and interstitial thickening. Diagnostic con siderations include pulmonary edema versus interstitial pneumonitis. ECG Data Attestation: I personally reviewed and interpreted this ECG as follows: Indication: + chest pain Additional Comments: Atrial fibrillation @[address] elevation Right bundle branch block When compared with ECG of 23-OCT-2020 07:41, No significant change was found MDM Narrative Physical exam and history were performed. Nursing notes, EMR, and Medication List were personally reviewed. Patient appears to have a fleeting episode of chest pain tonight. Her discomfort was primarily substernal and resolved prior to her arrival in the ER. She is currently without any discomfort, and was sleeping upon my arrival to the room. IV access was established and labs were obtained. EKG was performed and without acute ST elevation. An order was placed for continuous cardiac monitoring. The monitor shows a rate of 76 with atrial fibrillation rhythm. The patient's blood work is as above and was reviewed. She does not have a significantly elevated white blood cell count or gross anemia. INR is 1.9. Sodium is 132 and chloride is 95. Creatinine is 2.12 which is slightly elevated from her lab work from yesterday where it was 1.64. This is the highest her creatinine has been in at least the last 4 years. Glucose is 200. Transaminases are not diagnostic. The patient's troponin is detectable at 0.026, whereas from previous labs this past week it was not detectable. X-ray was reviewed by myself and radiology may show some interstitial thickening concerning for possible pulmonary edema versus pneumonitis. Due to the patient's complex medical history I did engage with the [facility] hospitalist team early on in the patient's return to the hospital. Upon evaluation and discussion with the hospitalist team, they will evaluate her here in the ER for further care. Please see their dictation for further patient course, plan, and disposition. The chart was completed utilizing [employer] Voice Recognition Software. Grammatical errors, random word insertions, pronoun errors, and incomplete sente nces are an occasional consequence of this system due to software limitations, ambient noise, and hardware issues. Any formal questions or concerns about the content, text, or information contained within the body of this dictation should be directly addressed to the provider for clarification. . Impression & Plan Substernal chest pain, Elevated troponin I measurement, Elevated serum creatinine, Diabetes Discharge Plan Visit Data Chief Complaint: Chest Pain Stated Complaint: CHEST PAIN ED Provider: [facility] ED Midlevel Provider: Chico Ritter Discharge Problem: Substernal chest pain, Elevated troponin I measurement, Elevated serum creatinine, Diabetes Patient Disposition: Admitted As Inpatient Discharge Instructions Interventions: ED Discharge Assessment Last Done: 10/25/20 06:25
--- NOTE | 2020-10-25 06:50 | XRay Report ---
XR chest 1V portable CLINICAL HISTORY: Atypical chest pain and COMPARISON STUDY: October 20, 2020 FINDINGS: The heart is enlarged. A prosthetic valve is again visualized. There is diffuse elevation o f interstitium. The findings are consistent with pulmonary edema although interstitial pneumonitis co uld appear similar. There is no lobar consolidation[there is a stable right axillary region lung manish iation. IMPRESSION: Stable cardiomegaly and interstitial thickening. Diagnostic considerations include pulmon elba edema versus interstitial pneumonitis. ACT 112: Negative or not required by law. Electronically signed by: Cesar Lopez M.D. 10/25/2020 6:49 AM
[2020-10-25] MEDS ORDERED: ZOLPIDEM TARTRATE 5 MG TAB PO PRN (06:56)
[2020-10-25] MEDS ORDERED: ONDANSETRON 8MG OD TAB PO PRN (06:56)
[2020-10-25] MEDS ORDERED: ACETAMINOPHEN 325 MG TAB PO PRN (06:56)
[2020-10-25] MEDS ORDERED: POLYETHYLENE (MIRALAX) 17 GM PACK PO PRN (06:56)
[2020-10-25] MEDS ORDERED: LEVALBUTEROL HCL 1.25 MG/3 ML NEB INH PRN (06:56)
[2020-10-25] MEDS ORDERED: NITROGLYCERIN SL 0.4 MG/TAB TAB SL PRN ×2 (06:56)
[2020-10-25] MEDS ORDERED: ALBUTEROL HFA 8 GM INHALER INH PRN (06:56)
[2020-10-25] MEDS ORDERED: ONDANSETRON INJ 2 MG/ML 2 ML VIAL IV PRN (06:56)
[2020-10-25] MEDS ORDERED: EPINEPHrine INJ 1 MG/ML AMP IM PRN (07:55)
[2020-10-25] MEDS ORDERED: DOCUSATE SODIUM 100 MG CAP PO PRN (08:31)
[2020-10-25] MEDS ORDERED: fentaNYL 50 MCG/HR TDSY TD SCH (09:00)
[2020-10-25] MEDS ORDERED: GLUCOSE 10 TABS/TUBE PO PRN (09:00)
[2020-10-25] MEDS ORDERED: GLUCAGON FOR INJ 1 MG VIAL IM PRN (09:00)
[2020-10-25] MEDS ORDERED: DEXTROSE 50% 50 ML SYRINGE IV PRN (09:00)
[2020-10-25] MEDS ORDERED: CARBOHYDRATES FOR HYPOGLYCEMIA PO PRN (09:00)
[2020-10-25] MEDS ORDERED: PANTOprazole 40 MG TAB PO SCH (09:00)
[2020-10-25] MEDS ORDERED: GLUCOSE 40% GEL 15 GM TUBE PO PRN (09:00)
--- NOTE | 2020-10-25 09:27 | History and Physical Report ---
DATE OF ADMISSION: 10/25/2020 CHIEF COMPLAINT: Chest pain. HISTORY OF PRESENT ILLNESS: This is a 65-year-old female with past medical history significant for hyperlipidemia, hypothyroidism, type 2 diabetes, chronic respiratory failure with hypoxia on 2 liters oxygen at all time, obstructive sleep apnea on CPAP at bedtime, COPD, history of cor pulmonale, history of paroxysmal atrial fibrillation, venous thrombosis, essential hypertension, venous stasis, chronic kidney disease stage III, Lynn's esophagus, cervical disc displacement, generalized osteoarthrosis, lumbar degenerative disc disease, senile osteoporosis, anemia, tobacco use disorder, status post mitral valve repair, depression, PTSD, who lives alone, ambulates with a walker, presents with chest pain. The patient recently was diagnosed with COVID on 10/11/2020 and she was admitted to hospital on 10/21/2020 with headache and chest pain, seen by Cardiology, chest pain thought to be atypical for angina, as its worsening with cough and movement . During hospital stay,she converted back to atrial fibrillation, thought to be from stress of illness or beta mana withdrawal and or hypokalemia. Her medications adjusted with Lopressor changed to Toprol-XL and diltiazem dose was adjusted and she did fine and she was discharged home. After going home after 6 to 7 hours she came back to the hospital with chest pain. The patient says in the middle of the night she woke up with severe chest pain, pressure-like feeling, 10/10 in severity and she came to the ER. Currently, chest pain is resolved. Denies any headache. No shortness of breath. EKG is unremarkable. Troponin is 0.026, while her last hospitalization troponin was always negative less than 0.015, so we were called for admission. Also, creatinine is 2.1, baseline is around 1.6. Currently sleepy but arousable and gives all answers appropriately. Denies any headache, currently no blurred vision, says she has some runny nose, no sore throat, no loss of sense, or sense of smell or taste. Appetite is good. Chest pain is resolved now. No shortness of breath. Still has some cough with dark phlegm. No nausea, no abdominal pain, no diarrhea, no bloody stools or black stools. Normal bladder movements. Ambulating with a walker. Hemodynamically stable. ALLERGIES: BEE VENOM, LISINOPRIL, POTATO, METRONIDAZOLE, STRAWBERRY, ALPRAZOLAM, LACTOSE, PREDNISONE, COLESEVELAM, LITHIUM. PAST MEDICAL HISTORY: As mentioned above. PAST SURGICAL HISTORY: Hole in the eardrum repaired, carpal tunnel surgery, , colonoscopies with biopsies, EGDs, incision of the breast lesion, laparoscopic cholecystectomy, ligation of oviducts, repair of incarcerated incisional hernia, appendectomy, total hysterectomy, umbilical hernia repair, mitral valvotomy. MEDICATIONS: The patient currently on albuterol 2 puffs inhalation q. 6 hours p.r.n., alendronate 70 mg p.o. weekly, amlodipine 5 mg p.o. a.m., Augmentin 1 tablet p.o. b.i.d. for 5 more days, atorvastatin 40 mg p.o. at bedtime, calcitriol 0.25 mcg p.o. as directed, cetirizine 10 mg p.o. at bedtime, vitamin D 1000 units p.o. a.m., diltiazem 180 mg p.o. a.m., Colace 100 mg p.o. daily p.r.n., epinephrine 0.3 mg IM as directed p.r.n., fentanyl 50 mcg transdermal q. 72 hours, Advair Diskus one inhalation b.i.d., Lasix 80 mg p.o. b.i.d., gabapentin 800 mg p.o. b.i.d., Lantus 16 units b.i.d., labetalol 1.5 mg inhalation q. 4 hours p.r.n., methocarbamol 750 mg p.o. daily, metoprolol succinate 100 mg p.o. b.i.d., multivitamin 1 tablet a.m., nitroglycerin 0.4 mg sublingual p.r.n., Zofran 8 mg p.o. b.i.d. p.r.n., oxycodone 10 mg p.o. q. 6 hours p.r.n., Protonix 40 mg p.o. a.m., potassium chloride 10 mEq p.o. t.i.d., prednisone 20 mg p.o. a.m., Spiriva HandiHaler 18 mcg inhalation a.m., trazodone 200 mg p.o. at bedtime, venlafaxine 225 mg p.o. a.m., warfarin 7.5 mg p.o. once weekly and 5 mg 6 times a week, zolpidem 5 mg p.o. at bedtime p.r.n. FAMILY HISTORY: Significant for father has arthritis and gout. Mother has hypertension, diabetes. Sister has arthritis. SOCIAL HISTORY: Currently lives alone. Smokes half pack a day. No alcohol use, no drug use. REVIEW OF SYMPTOMS: As per HPI. Rest of review of systems negative. PHYSICAL EXAMINATION: GENERAL: The patient is obese, not in acute distress. VITAL SIGNS: Temperature 36.8, pulse 70, respiratory rate 18, blood pressure 113/69, oxygen 97% on 2 liters. HEENT: Pupils equal, round, and reactive to light. Oral mucosa somewhat dry. NECK: No neck masses. No JVD seen. CARDIOVASCULAR: S1, S2 heard, regular rate and rhythm, no murmur, no gallop. RESPIRATORY SYSTEM: Normal AP diameter. No accessory muscle use. No wheezing, no crackles. ABDOMEN: Soft, bowel sounds present, nontender. No distention. CENTRAL NERVOUS SYSTEM: Cranial nerves II-XII grossly intact, nonfocal. EXTREMITIES: No edema, no erythema seen. LABORATORY DATA: WBC 10.5, hemoglobin 12.9, hematocrit 38.5, platelets 263. PT 18, INR 1.9, APTT 28.4. Sodium 132, potassium 3.6, chloride 95, bicarbonate 30, BUN 45, creatinine 2.1, serum glucose 200, calcium 8.2, total bilirubin 0.3, AST 25, ALT 45, alkaline phosphatase 56, troponin I 0.026. Chest x-ray, pulmonary congestion seen. EKG: Atrial fibrillation at a rate of 84, no significant change was found. ASSESSMENT AND PLAN: A 65-year-old female with multiple medical problems who presents with chest pain. The patient was recently diagnosed with COVID on 10/11/2020. 1. Chest pain, rule out acute coronary syndrome. Initial EKG, no significant change. Troponin 0.02 , she was just discharged yesterday. She had multiple troponins less than 0.015 last admission.Currently chest pain free. We will follow serial enzymes. Last admission was also seen by Cardiology and thought to be mostly atypical chest pain from her ongoing illness, but if any concerns of serum troponin trends up, we will consult cardiology. We will observe in med-tele. 2. COVID-19 diagnosed on 10/11/2020, she was admitted and was on Decadron, was discharged on prednisone 20 mg. Starting to taper 10 mg then tapered off in few days. Resp status at baseline. Doesn't meet criteria for remdesivir 3. Chronic obstructive pulmonary disease and cough. Last admission cough was present. Moraxella catarrhalis on sputum cultures.Still has 5 more days of Augmentin. Continue home inhalers, currently not wheezing and tapering of steroids. 4. Acute kidney injury on chronic kidney disease stage III, presented with creatinine of 2.1. Baseline creatinine looks to be around 1.6. Holding the Lasix, getting gentle fluids. Monitor the labs. 5. History of chronic diastolic congestive heart failure, currently Lasix on hold and getting gentle fluids. Monitor for any volume overload. 6. History of sleep apnea on CPAP at bedtime. 7. History of paroxysmal atrial fibrillation, rate is under control currently on Toprol-XL 100 mg b.i.d. and diltiazem 180 mg daily and on Coumadin INR is 1.9. We will follow PT and INR. Monitor the rates. 8. History of anxiety and depression. Continue home medications. She is on venlafaxine. 9. Hypertension. She is on Cardizem, Lopressor, and amlodipine. We will monitor the blood pressure. 10. History of diabetes, currently n.p.o. We will cut back the Lantus [address] on insulin sliding scale. Follow the blood sugars. If the second set of troponin is negative, we can start her on ADA and AHA diet and increase the Lantus 16 units b.i.d. and monitor the blood sugars. 11. Chronic pain. Continue home pain medications. 12. Gastroesophageal reflux disease. Continue Protonix. 13. Chronic respiratory failure with hypoxia on oxygen 2 liters. Currently not meeting any criteria for remdesivir. She is maintaining her oxygen saturations . 14. Deep venous thrombosis prophylaxis, on Coumadin. We will follow the PT and INR. 15. Disposition: Observation in tele floor, med-tele. PT and OT prior to discharge. Social service to help with discharge planning. VAHID
--- NOTE | 2020-10-25 09:30 | Nephrology Consultation ---
Date of Consultation October 25, 2020 Assessment & Plan (1) Acute kidney injury superimposed on CKD: baseline creatinine 1.5-1.7; at baseline as recently as yesterday; then on presentation today creat up to 2.1; no clear cause, no nsaids, no IV contrast, no documented hemodynamic instaiblity. her OP diuretics -- lasix 80 mg po bid -- were continued through last admission. chemistries acceptable apart from mild hypoantremia, hypokalemia - would observe, no intervention needed. No vignesh cation for discussion of dialysis. -check uacm, with cx prn -bladder scan -hold lasix; cont NS at 50 mL hourly for now > stop NS if worsening respiratory status -gave one time dose of potassium 20 mEq po -cotn to avoid nephrotoxins -daily bmp Present on Admission?: Yes History of Present Illness Reason for Consultation: ЮЛИЯ on CKD Requesting Physician: Dr Moreau Attending Physician: Abdelrahman Moreau MD History of Present Illness 65 y/o F whom I'm asked to see for ЮЛИЯ after she was readmitted w/in hours of hospital discharge for evaluation of chest pain which woke her from sleep at home and was resolved on arrival back to the ER. She was d/c yesterday after 10/21-10/24 admission for evaluation of what was deemed non cardiac chest pain in the setting of recent covid 19 dx on 10/11 picked up on preop eval. 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 Also w/ CKD w/ baseline creatinine 1.5-1.7. At hospital d/c, her metoprolol dose was switched from short to long acting and diltiazem dose was increased. during her admission, lasix 80 mg po bid was continued, her regular OP dose. states she feels improved, CP has not recurred; no sob, no new/worrisome voiding concerns, no diarrhea or decreased po Allergies Allergy/AdvReac Type Severity Reaction Status Date / Time bee venom protein (honey bee) Allergy Severe SWELLING Verified 10/25/20 03:04 lisinopril Allergy Intermediate FACE Verified 10/25/20 03:04 SWELLING potato Allergy Intermediate BBQ chips Verified 10/25/20 03:04 - facial swelling metronidazole Allergy Mild FACE Verified 10/25/20 03:04 SWELLING strawberry Allergy Mild HIVES Verified 10/25/20 03:04 alprazolam Allergy Unknown RED FACE, Verified 10/25/20 03:04 FACE SWELLING lactose AdvReac Intermediate VOMTING Verified 10/25/20 03:04 DIARRHEA ABDOMINAL PAIN-LACTOSE INTOLERANCE prednisone AdvReac Mild AGGRESSIVE Verified 10/25/20 03:04 BEHAVIOR colesevelam AdvReac Unknown unknown Verified 10/25/20 03:04 lithium AdvReac Unknown jitters Verified 10/25/20 03:04 Home Medications Medication Instructions Recorded Confirmed Type Spiriva with HandiHaler 1 cap INHALATION QAM 06/19/18 10/25/20 History atorvastatin 40 mg PO HS 06/19/18 10/25/20 History cetirizine 10 mg PO HS 06/19/18 10/25/20 History cholecalciferol (vitamin D3) 1,000 unit PO QAM 06/19/18 10/25/20 History [Vitamin D3] docusate sodium 100 mg PO DAILY PRN 06/19/18 10/25/20 History epinephrine [EpiPen] 0.3 mg IM DIRECTED PRN 06/19/18 10/25/20 History fentanyl 50 mcg TRANSDERMAL [id number] 06/19/18 10/25/20 History furosemide 80 mg PO BID 06/19/18 10/25/20 History methocarbamol 750 mg PO TID 06/19/18 10/25/20 History multivitamin 1 tab PO QAM 06/19/18 10/25/20 History ondansetron 8 mg PO BID PRN 06/19/18 10/25/20 History venlafaxine 150 mg PO QAM 06/19/18 10/25/20 History warfarin 5 mg PO 6XWK 06/19/18 10/25/20 History trazodone 200 mg PO HS 09/14/18 10/25/20 History venlafaxine 75 mg PO QAM 09/14/18 10/25/20 History zolpidem 5 mg PO HS PRN 09/14/18 10/25/20 History gabapentin 800 mg PO BID 05/28/19 10/25/20 History alendronate 70 mg tablet 70 mg PO WK tab 06/10/19 10/25/20 History warfarin 7.5 mg PO WK 09/19/19 10/25/20 History Lantus U-100 Insulin 16 unit SUBCUT BID 03/02/20 10/25/20 History pantoprazole 40 mg PO QAM 03/02/20 10/25/20 History potassium chloride 10 meq PO TID 03/02/20 10/25/20 History albuterol sulfate [Proventil HFA] 2 puffs INH Q6H PRN 03/24/20 10/25/20 History levalbuterol HCl 1.25 mg INHALATION Q4H PRN 03/24/20 10/25/20 History amlodipine 5 mg PO QAM 05/15/20 10/25/20 History nitroglycerin [Nitrostat] 0.4 mg SUBLINGUAL DIRECTED PRN 07/02/20 10/25/20 History oxycodone 10 mg PO Q6 PRN 07/02/20 10/25/20 History fluticasone propion-salmeterol 1 inh INHALATION BID 08/01/20 10/25/20 History [Advair Diskus] prednisone 20 mg tablet 20 mg PO QAM 09/12/20 10/25/20 History calcitriol 0.25 mcg PO UD 10/21/20 10/25/20 History amoxicillin-pot clavulanate 1 tab PO BIDM 5 Days #10 tab 10/24/20 10/25/20 Rx [Augmentin] diltiazem HCl 180 mg PO QAM 30 Days #30 cap 10/24/20 10/25/20 Rx metoprolol succinate 100 mg PO BID 30 Days #120 tab 10/24/20 10/25/20 Rx Patient History Medical History Anxiety Asthma 3LPM via n/c mostly continuous (although patient states she does not wear this all the time) Atrial fibrillation a. fib/a. flutter s/p cardioversion (2017) Lynn esophagus Bipolar disorder Chronic back pain Chronic cor pulmonale Chronic kidney disease stage III Chronic obstructive pulmonary disease 3LPM via n/c mostly continuous (although patient states she does not wear this all the time) COVID-19 virus detected + 10/11/20 CVA (cerebral vascular accident) 2004 (per records; patient denies) Degeneration of cervical intervertebral disc Depression Diastolic CHF, chronic DM type 2 (diabetes mellitus, type 2) Fibromyalgia Gastroparesis GERD (gastroesophageal reflux disease) History of cardioversion History of Clostridium difficile infection History of DVT (deep vein thrombosis) left "hand" 2004- on AC HTN (hypertension) Hyperlipidemia Hypothyroidism no current medication per doctor orders. 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 Obesity Obstructive sleep apnea treated with BiPAP cpap night Osteoarthritis Peripheral neuropathy Post traumatic stress disorder Surgical History History of adenoidectomy History of appendectomy LAPAROSCOPY History of cardiac cath 2004= no stents History of carpal tunnel release left History of cataract surgery BILATERAL History of cholecystectomy LAPAROSCOPY History of colonoscopy History of esophagogastroduodenoscopy (EGD) History of hysterectomy EMIGDIO WITH BSO History of mitral valve repair 2004 + resection fibroelastoma History of tonsillectomy Hx of lumpectomy right breast BENIGN Hx of tubal ligation Hx of umbilical hernia repair S/P trigger finger release RIGHT/LEFT Family History Mother Family history of diabetes mellitus Sister Family history of diabetes mellitus Ulcerative colitis Social History Smoking Status: Current every day smoker Tobacco Type: Cigarettes Cigarettes Per Day: 10; Second Hand Exposure: Yes; Tobacco Cessation Education Requested by Patient: No Hx Alcohol Use: No Hx Substance Use: No Preferred Language: Congolese Communication Ability: Effective Visual Impairment: No Limitations Hvac Manager Required: No Beliefs That Will Affect Care: None marital status: / Current Living Situation: Alone Current Living Situation Comment: APARTMENT Feels Safe at Home: Yes Assistive Devices: CPAP, Denture - Upper, Denture - Lower, Oxygen - Continuous and Walker Review of Systems Review of Systems: All systems reviewed & are unremarkable except as noted in Subjective Physical Exam Constitutional: well developed, well nourished and + obese; no acute distress Eyes: EOM intact bilaterally ENMT: Ears: no external ear abnormality Nose: no external nose abnormality Mouth: + dry oral mucous membranes Neck: no nuchal rigidity Respiratory: normal respiratory effort Auscultation: + diminished lung sounds and + crackles (fine bibasilar) on 02 nc Cardiovascular: Rate/Rhythm: regular rate and regular rhythm Extremities: no edema Gastrointestinal (Abdomen): Inspection/Auscultation: normal bowel sounds Percussion/Palpation: abdomen soft; abdomen nontender Musculoskeletal: Extremities: + abnormal strength (generalized weakness) Skin: no rashes, warm and dry Neurologic: clay, fluent speech w/ slight psychomotor delay, no tremor Psychiatric: Orientation: alert and oriented x 3 Speech: normal rate/rhythm/volume of speech Affect: + flat affect Results & Data ([facility]) Vital Signs (Past 12 Hours) Vital Signs Temp Pulse Pulse Resp BP BP Pulse Ox 10/25/20 06:45 36.6 C 96 H 20 101/65 98 10/25/20 06:25 70 18 113/69 97 10/25/20 05:50 74 16 109/75 97 10/25/20 03:50 76 18 112/70 97 10/25/20 02:50 96 10/25/20 02:47 36.8 C 78 18 103/73 99 10/25/20 02:35 99 Laboratory Results 10/25/20 02:45 10/25/20 02:45
[2020-10-25] MEDS: SODIUM CHLORIDE 0.9% 1000ML 1,000 ML IV SCH ×2 (10:02→21:15)
[2020-10-25] MEDS: FLUTICASONE/VILANTEROL 100/25MCG 14 PUFFS/INHALER INH SCH (10:02)
[2020-10-25] MEDS: predniSONE 10 MG TABLET PO SCH (10:03)
[2020-10-25] MEDS: UMECLIDINIUM BROMIDE 62.5MCG/BLISTER 7 PUFFS/INHALER INH SCH (10:03)
[2020-10-25] MEDS: METHOCARBAMOL 750 MG TABLET PO SCH ×3 (10:04→21:11)
[2020-10-25] MEDS: VENLAFAXINE HCL XR 75 MG CAPXR PO SCH (10:04)
[2020-10-25] MEDS: VENLAFAXINE HCL XR 150 MG CAPXR PO SCH (10:04)
[2020-10-25] MEDS: METOPROLOL SUCC 50MG EXT REL TAB PO SCH ×2 (10:05→21:11)
[2020-10-25] MEDS: CHOLECALCIFEROL 1,000 UNITS 25 MCG TAB PO SCH (10:05)
[2020-10-25] MEDS: GABAPENTIN 800 MG TAB PO SCH ×2 (10:05→21:10)
[2020-10-25] MEDS: dilTIAZem HCL 180 MG CAPCR PO SCH (10:06)
[2020-10-25] MEDS: MULTIVITAMIN TAB PO SCH (10:06)
[2020-10-25] MEDS: amLODIPine BESYLATE 5 MG TAB PO SCH (10:06)
[2020-10-25] MEDS: INSULIN GLARGINE SOLOSTAR 100 UNITS/ML 3 ML PEN SC SCH ×2 (10:09→21:14)
[2020-10-25] MEDS: INSULIN ASPART 100 UNITS/ML 3 ML PEN SC SCH ×4 (10:10→21:13)
[2020-10-25] MEDS: CALCITRIOL 0.25 MCG CAPSULE PO SCH (10:10)
[2020-10-25] MEDS: CHECK fentaNYL PATCH PLACEMENT SCH ×3 (10:15→23:57)
--- NOTE | 2020-10-25 10:47 | Hospitalist Progress Note ---
Date of Service delayed entry date of service below October 25, 2020 Assessment & Plan (1) Atypical chest pain: per admitting C notes: ASSESSMENT AND PLAN: A 65-year-old female with multiple medical problems who presents with chest pain. The patient was recently diagnosed with COVID on 10/11/2020. 1. Chest pain, ACS ruled out - Initial EKG, no significant change. - Troponins negative Last admission was also seen by Cardiology and thought to be mostly atypical chest pain from her ongoing illness Chest pain likely from Worsening of GERD - risk factors: recent steroid use for COVID, Smoking - Protonix BID dietary modification - GI consulted 2. COVID-19 diagnosed on 10/11/2020, she was admitted and was on Decadron, was discharged on prednisone 20 mg. Starting to taper 10 mg then tapered off in few days. - at baseline 2 L NC no respiratory issues 3. Chronic obstructive pulmonary disease and cough. -- Moraxella catarrhalis on sputum cultures.Still has 5 more days of Augmentin. Continue home inhalers and tapering of steroids. 4. Acute kidney injury on chronic kidney disease stage III, presented with creatinine of 2.1. Baseline creatinine looks to be around 1.6. Holding the Lasix, getting gentle fluids. - Nephro consulted 5. History of chronic diastolic congestive heart failure, currently Lasix on hold and getting gentle fluids 6. History of sleep apnea on CPAP at bedtime. 7. History of paroxysmal atrial fibrillation, rate is under control - per Six Sigma Project Manager recommendations, currently on Toprol-XL 100 mg b.i.d. and diltiazem 180 mg daily and on Coumadin INR is 1.9. 8. History of anxiety and depression. Continue home medications. She is on venlafaxine. 9. Hypertension. She is on Cardizem, Lopressor, and amlodipine. We will monitor the blood pressure. 10. History of diabetes, currently n.p.o. We will cut back the Lantus [address] on insulin sliding scale. Follow the blood sugars. If the second set of troponin is negative, we can start her on ADA and AHA diet and increase the Lantus 16 units b.i.d. and monitor the blood sugars. 11. Chronic pain. Continue home pain medications. 12. Gastroesophageal reflux disease. Continue Protonix. 13. Chronic respiratory failure with hypoxia on oxygen 2 liters. Currently not meeting any criteria for remdesivir. She is maintaining her oxygen saturations . 14. Deep venous thrombosis prophylaxis, on Coumadin. We will follow the PT and INR. 15. Disposition: Observation in tele floor, med-tele. PT and OT prior to discharge. Social service to help with discharge planning. plan of care discussed with patient and her daughter in law over the phone in detail all questions answered she is understanding, agreeable, comfortable with the plan of care Admission and Anticipated Discharge Date Admission Date: October 25, 2020 Subjective ff up for chest pain, etc seen resting in bed, comfortable, not in distress chest pain has not recurred since admission does report increased reflux symptoms the past few days no active abdominal pain, nausea no dyspnea, palpitations, dizziness no other symptoms Review of Systems Review of Systems: All systems reviewed & are unremarkable except as noted in Subjective Physical Exam Physical Exam: General- oriented x 3, not in distress, speaks in sentences with no effort or accessory muscle use Head- atraumatic Eyes- PERRL, EOMI, anicteric ENT- oropharynx clear Neck- supple, no JVD, no adenopathy, no thyromegaly; carotids +2/2, no bruits appreciated Lungs- somewhat diminished but clear to auscultation bilaterally, no ra les/wheezes Heart- normal rate, regular rhythm; no murmur, no gallop, no rub appreciated Abdomen- normal bowel sounds, nondistended, soft, nontender, no masses or hepatosplenomegaly Extremities- no pretibial edema, no calf tenderness; peripheral pulses intact Neuro- alert, oriented x 3; CN 2-12 grossly intact; motor 5/5 bilaterally;sensation 100% on all extremities; no other gross focal neurologic deficits Skin- warm & dry Results & Data Results & Data ([facility]) Vital Signs (Past 12 Hours) Vital Signs Temp Pulse Pulse Resp BP BP Pulse Ox 10/25/20 06:45 36.6 C 96 H 20 101/65 98 10/25/20 06:25 70 18 113/69 97 10/25/20 05:50 74 16 109/75 97 10/25/20 03:50 76 18 112/70 97 10/25/20 02:50 96 10/25/20 02:47 36.8 C 78 18 103/73 99 10/25/20 02:35 99 Laboratory Results all noted and reviewed
--- NOTE | 2020-10-25 12:10 | Gastrointestinal Consultation ---
Date of Consultation October 25, 2020 Assessment & Plan (1) Atypical chest pain: Pt is a 65 y/o female seen for atypical chest pain. Recently admitted for similar symptoms, was going to f/u w Cardiology for further outpt eval & workup. She is also on Augmentin for Moraxella catarrhalis. Denies cough or pleuritic pain at this time. She does have hx of GERD, Lynn's esophagus on Pantoprazole. Reports CP last night similar to heartburn but also associated w diaphoresis, tachycardia, and increased SOB. CP relieved w ASA administration by EMS staff. - Will increase Pantoprazole to 40mg BID - GERD diet - Defer EGD eval at this time - Would ask primary team to consider re-eval by Cardiology for further workup during this admission Supervising Physician Co-Signing Physician Notes Attending attestation I have seen, examined this patient, and agree with the findings and above by our mid-level provider KAYCE Cox, with the following additions: Chest pain in absence of eating, may or may not be of GI relation. Has GERD symptoms, will treat medically. No added benefit of EGD at this time. Will await cardiology input History of Present Illness Reason for Consultation: Chest pain Requesting Physician: Dr. Abdelrahman Moreau Attending Physician: Dr. Kin Irvin History of Present Illness Pt is a 65 y/o female w presented last night for c/o chest pain. She was just discharged yesterday w similar symptoms. Seen by Cardiology team. She has PMhx of COPD on chronic O2 NC, HLD, Afib on Warfarin, recent sputum cx grew Moxarella catharsis on Augmentin. Troponins have been normal. She described CP last night as sharp and mid chest area, non radiating. Though noted diaphoresis and slightly increased SOB w/o cough and increased HR (pulse in 120s on home pulse ox but no signs of desaturations). She also felt she have heartburn, and mild nausea, no vomiting. She does c/o slight dysphagia at times but no food bolus signs. Hx of GERD, Lynn's esophagus on Pantoprazole 40mg daily. She tried taking Nitroglycerin for CP last night w/o relief but after given 4 tabs of ASA by EMS staff, she felt better. Allergies Allergy/AdvReac Type Severity Reaction Status Date / Time bee venom protein (honey bee) Allergy Severe SWELLING Verified 10/29/20 20:53 lisinopril Allergy Intermediate FACE Verified 10/29/20 20:53 SWELLING potato Allergy Intermediate BBQ chips Verified 10/29/20 20:53 - facial swelling metronidazole Allergy Mild FACE Verified 10/29/20 20:53 SWELLING strawberry Allergy Mild HIVES Verified 10/29/20 20:53 alprazolam Allergy Unknown RED FACE, Verified 10/29/20 20:53 FACE SWELLING lactose AdvReac Intermediate VOMTING Verified 10/29/20 20:53 DIARRHEA ABDOMINAL PAIN-LACTOSE INTOLERANCE prednisone AdvReac Mild AGGRESSIVE Verified 10/29/20 20:53 BEHAVIOR colesevelam AdvReac Unknown unknown Verified 10/29/20 20:53 lithium AdvReac Unknown jitters Verified 10/29/20 20:53 Home Medications Medication Instructions Recorded Confirmed Type Spiriva with HandiHaler 1 cap INHALATION QAM 06/19/18 11/08/20 History atorvastatin 40 mg PO HS 06/19/18 11/08/20 History cetirizine 10 mg PO HS 06/19/18 11/08/20 History cholecalciferol (vitamin D3) 1,000 unit PO QAM 06/19/18 11/08/20 History [Vitamin D3] docusate sodium 100 mg PO BID 06/19/18 11/08/20 History epinephrine [EpiPen] 0.3 mg IM DIRECTED PRN 06/19/18 11/08/20 History fentanyl 50 mcg TRANSDERMAL [id number] 06/19/18 11/08/20 History methocarbamol 750 mg PO TID 06/19/18 11/08/20 History multivitamin 1 tab PO QAM 06/19/18 11/08/20 History ondansetron 8 mg PO BID PRN 06/19/18 11/08/20 History venlafaxine 150 mg PO QAM 06/19/18 11/08/20 History trazodone 200 mg PO HS 09/14/18 11/08/20 History venlafaxine 75 mg PO QAM 09/14/18 11/08/20 History zolpidem 5 mg PO HS 09/14/18 11/08/20 History gabapentin 800 mg PO BID 05/28/19 11/08/20 History alendronate 70 mg tablet 70 mg PO WK tab 06/10/19 11/08/20 History Lantus U-100 Insulin 18 unit SUBCUT BID 03/02/20 11/08/20 History potassium chloride 40 meq PO TID 03/02/20 11/08/20 History albuterol sulfate [Proventil HFA] 2 puffs INH Q6H PRN 03/24/20 11/08/20 History levalbuterol HCl 1.25 mg INHALATION Q4H PRN 03/24/20 11/08/20 History nitroglycerin [Nitrostat] 0.4 mg SUBLINGUAL DIRECTED PRN 07/02/20 11/08/20 History oxycodone 10 mg PO Q6H PRN 07/02/20 11/08/20 History fluticasone propion-salmeterol 1 inh INHALATION BID 08/01/20 11/08/20 History [Advair Diskus] calcitriol 0.25 mcg PO DIRECTED 10/21/20 11/08/20 History amoxicillin-pot clavulanate 1 tab PO BID #14 tab 11/04/20 11/08/20 Rx [Augmentin] Gaviscon 1 tab PO TID PRN 11/08/20 11/08/20 History acetaminophen 500 mg PO Q6H PRN 11/08/20 11/08/20 History amitriptyline 50 mg PO HS 11/08/20 11/08/20 History benzonatate 100 mg PO TID PRN 11/08/20 11/08/20 History furosemide 80 mg PO BID 11/08/20 11/08/20 History levalbuterol tartrate [Xopenex HFA] 1 puff INHALATION Q4H PRN 11/08/20 11/08/20 History melatonin 10 mg PO HS 11/08/20 11/08/20 History metoprolol succinate 100 mg PO BID 11/08/20 11/08/20 History pantoprazole 40 mg PO BID 11/08/20 11/08/20 History polyethylene glycol 3350 17 g PO DAILY 11/08/20 11/08/20 History prednisone See Rx Instructions .ROUTE 11/08/20 11/08/20 History .COMPLEX PRN prochlorperazine maleate 10 mg PO Q6H PRN 11/08/20 11/08/20 History [Compazine] apixaban [Eliquis] 5 mg PO BID #60 tab 11/16/20 Rx diltiazem HCl 240 mg PO QAM #30 cap 11/17/20 Rx nicotine 1 patch TRANSDERMAL DAILY #28 ea 11/17/20 Rx Patient History Medical History Anxiety Asthma Atrial fibrillation Lynn esophagus Bipolar disorder Chronic back pain Chronic cor pulmonale Chronic kidney disease Chronic obstructive pulmonary disease COVID-19 virus detected CVA (cerebral vascular accident) Degeneration of cervical intervertebral disc Depression Diastolic CHF, chronic DM type 2 (diabetes mellitus, type 2) Fibromyalgia Gastroparesis GERD (gastroesophageal reflux disease) History of cardioversion History of Clostridium difficile infection History of DVT (deep vein thrombosis) HTN (hypertension) Hyperlipidemia Hypothyroidism Insomnia Liver lesion Migraine Mitral stenosis Mitral valve disorder Obesity Obstructive sleep apnea treated with BiPAP Osteoarthritis Peripheral neuropathy Post traumatic stress disorder Surgical History History of adenoidectomy History of appendectomy History of cardiac cath History of carpal tunnel release History of cataract surgery History of cholecystectomy History of colonoscopy History of esophagogastroduodenoscopy (EGD) History of hysterectomy History of mitral valve repair History of tonsillectomy Hx of lumpectomy Hx of tubal ligation Hx of umbilical hernia repair S/P trigger finger release Family History Mother Family history of diabetes mellitus Sister Family history of diabetes mellitus Ulcerative colitis Social History Smoking Status: Current every day smoker Tobacco Type: Cigarettes Cigarettes Per Day: 10; Second Hand Exposure: Yes; Hx Alcohol Use: No Hx Substance Use: No Preferred Language: Lebanese Communication Ability: Effective Visual Impairment: No Limitations Bottle Assembler Required: No Beliefs That Will Affect Care: None marital status: / Current Living Situation: Alone Current Living Situation Comment: APARTMENT Feels Safe at Home: Yes Assistive Devices: Glasses and Walker Review of Systems Review of Systems: All systems reviewed & are unremarkable except as noted in HPI & below Physical Exam Constitutional: WD/WN, vitals as above well groomed, cooperative and comfortable Eyes: PERRL, conjunctivae normal, anicteric sclerae ENMT: external ear and nose normal, oropharynx normal Respiratory: no respiratory distress and does not use accessory muscles On 2L NC Cardiovascular: Rate/Rhythm: + irregularly irregular Gastrointestinal (Abdomen): normal bowel sounds, soft, nontender, no hepatosplenomegaly Skin: no rashes, warm and dry no jaundice Psychiatric: A+Ox3, euthymic affect Lymphatic: no lymphedema Results & Data ([facility]) Vital Signs (Past 12 Hours) Vital Signs Temp Pulse Pulse Resp BP BP Pulse Ox 10/25/20 11:22 36.6 C 85 18 117/72 95 10/25/20 06:45 36.6 C 96 H 20 101/65 98 10/25/20 06:25 70 18 113/69 97 10/25/20 05:50 74 16 109/75 97 10/25/20 03:50 76 18 112/70 97 10/25/20 02:50 96 10/25/20 02:47 36.8 C 78 18 103/73 99 10/25/20 02:35 99
--- NOTE | 2020-10-25 12:34 | Electrocardiogram Report ---
Test Reason : Blood Pressure : / mmHG Vent. Rate : 084 BPM Atrial Rate : 357 BPM P-R Int : 000 ms QRS Dur : 154 ms QT Int : 412 ms P-R-T Axes : 000 093 -18 degrees QTc Int : 486 ms Atrial fibrillation Right bundle branch block Abnormal ECG When compared with ECG of 23-OCT-2020 07:41, No significant change was found Confirmed by Chino Masterson ([id number]) on 10/25/2020 12:34:27 PM Referred By: REFERRED SELF Confirmed By:Chino Masterson
[2020-10-25] MEDS: WARFARIN SOD 5 MG TAB PO SCH (15:48)
[2020-10-25] MEDS: oxyCODONE HCL IR 5 MG TAB (IMMEDIATE RELEASE) PO PRN (15:48)
[2020-10-25] MEDS: AMOXICILLIN/CLAVULANATE 875 MG TAB PO SCH (17:21)
[2020-10-25] MEDS: NICOTINE 14 MG/24 HR PATCH TD SCH (17:21)
[2020-10-25] MEDS ORDERED: POTASSIUM CHLORIDE CRTAB 20 MEQ TABCR PO ONE (19:45)
[2020-10-25] MEDS: traZODone HCL 100 MG TAB PO SCH (21:09)
[2020-10-25] MEDS: ATORVASTATIN 40 MG TAB PO SCH (21:09)
[2020-10-25] MEDS: PANTOprazole 40 MG TAB PO SCH (21:09)
[2020-10-25] MEDS: CETIRIZINE HCL 10 MG TABLET PO SCH (21:11)
[2020-10-26 05:35] LABS: Basophils # (auto) 0.02 K/uL (0-0.2); Basophils % (auto) 0.2 %; Eosinophils # (auto) 0.12 K/uL (0-0.5); Eosinophils % (auto) 1.3 %; Hematocrit (blood only) 40.3 % (37-47); Hemoglobin 13.6 g/dL (12.0-16.0); Immature Granulocytes # (auto) 0.04 K/uL (0.00-0.02); Immature Granulocytes % (auto) 0.4 %; Lymphocytes # (auto) 2.79 K/uL (1.2-3.4); Lymphocytes % (auto) 29.8 %; Mean Corpuscular Hemoglobin 30.4 pg (25-34); Mean Corpuscular Hgb Conc 33.7 g/dL (32-36); Mean Platelet Volume 9.9 fL (7.4-10.4); Monocytes # (auto) 0.57 K/uL (0.11-0.59); Monocytes % (auto) 6.1 %; Neutrophils # (auto) 5.83 K/uL (1.4-6.5); Neutrophils % (auto) 62.2 %; Platelet Count 270 K/uL (130-400); Red Blood Count 4.48 M/uL (4.2-5.4); White Blood Count 9.37 K/uL (4.8-10.8)
[2020-10-26 05:46] LABS: INR 2.5 (0.9-1.1)
[2020-10-26 06:13] LABS: BUN Creatinine Ratio 25.2 (10-20); Calcium 8.8 mg/dl (8.5-10.1); Creatinine Clr Calc Pharmacy 38.9 ml/min; Est GFR (African American) 35.5; Est GFR (Non-African American) 30.7
--- NOTE | 2020-10-26 08:38 | Gastroenterology Progress Note ---
Date of Service October 26, 2020 Assessment & Plan (1) Atypical chest pain: Pt is a 65 y/o female seen for atypical chest pain. Recently admitted for similar symptoms, was going to f/u w Cardiology for further outpt eval & workup. She is also on Augmentin for Moraxella catarrhalis. Denies cough or pleuritic pain at this time. She does have hx of GERD, Lynn's esophagus on Pantoprazole. Reports CP last night similar to heartburn but also associated w diaphoresis, tachycardia, and increased SOB. CP relieved w ASA administration by EMS staff. - Continue Pantoprazole 40mg BID and add Gaviscon PO TID prn heartburn - GERD diet - Defer EGD eval at this time recent COVID, Moraxella infection - Pls recall GI prn new questions/concerns Attg add: I interviewed and examined pt, reviewed chart and labs. Pt admit with atypical CP, now with resolution of these symptoms. Cont PPI. Reconsult as needed. Admission and Anticipated Discharge Date Admission Date: October 25, 2020 Subjective Pt c/o heartburn, but noted able to finish breakfast tray. Denies abd pain, n/v. Bowels haven't moved for 4 days now Review of Systems Review of Systems: All systems reviewed & are unremarkable except as noted in HPI & below Physical Exam Constitutional: WD/WN, vitals as above well groomed, cooperative and comfortable Eyes: PERRL, conjunctivae normal, anicteric sclerae ENMT: external ear and nose normal, oropharynx normal Respiratory: Auscultation: + diminished lung sounds and + crackles (bilateral bases) Cardiovascular: RRR, no murmur, no edema Gastrointestinal (Abdomen): normal bowel sounds, soft, nontender, no hepatosplenomegaly Skin: no rashes, warm and dry no jaundice Psychiatric: A+Ox3, euthymic affect Lymphatic: no lymphedema Results & Data ([facility]) Vital Signs (Past 12 Hours) Vital Signs Temp Pulse Pulse Resp BP Pulse Ox 10/26/20 06:58 36.5 C 18 125/74 98 10/26/20 02:46 36.5 C 105 H 22 108/55 L 92 10/26/20 02:00 88 10/25/20 23:20 36.1 C L 80 22 106/55 L 91 10/25/20 22:27 100 H 18 96
[2020-10-26] MEDS: INSULIN ASPART 100 UNITS/ML 3 ML PEN SC SCH ×4 (08:42→19:28)
[2020-10-26] MEDS: INSULIN GLARGINE SOLOSTAR 100 UNITS/ML 3 ML PEN SC SCH ×2 (08:42→19:29)
[2020-10-26] MEDS: METOPROLOL SUCC 50MG EXT REL TAB PO SCH ×2 (08:45→21:22)
[2020-10-26] MEDS: GABAPENTIN 800 MG TAB PO SCH ×2 (08:45→21:21)
[2020-10-26] MEDS: PANTOprazole 40 MG TAB PO SCH ×2 (08:45→21:21)
[2020-10-26] MEDS: CHOLECALCIFEROL 1,000 UNITS 25 MCG TAB PO SCH (08:45)
[2020-10-26] MEDS: amLODIPine BESYLATE 5 MG TAB PO SCH (08:45)
[2020-10-26] MEDS: AMOXICILLIN/CLAVULANATE 875 MG TAB PO SCH ×2 (08:45→17:15)
[2020-10-26] MEDS: CALCITRIOL 0.25 MCG CAPSULE PO SCH (08:46)
[2020-10-26] MEDS: predniSONE 10 MG TABLET PO SCH (08:46)
[2020-10-26] MEDS: METHOCARBAMOL 750 MG TABLET PO SCH ×3 (08:46→21:22)
[2020-10-26] MEDS: MULTIVITAMIN TAB PO SCH (08:46)
[2020-10-26] MEDS: VENLAFAXINE HCL XR 75 MG CAPXR PO SCH (08:46)
[2020-10-26] MEDS: NICOTINE 14 MG/24 HR PATCH TD SCH (08:46)
[2020-10-26] MEDS: VENLAFAXINE HCL XR 150 MG CAPXR PO SCH (08:46)
[2020-10-26] MEDS: dilTIAZem HCL 180 MG CAPCR PO SCH (08:46)
[2020-10-26] MEDS: CHECK fentaNYL PATCH PLACEMENT SCH ×2 (08:47→15:38)
[2020-10-26] MEDS: UMECLIDINIUM BROMIDE 62.5MCG/BLISTER 7 PUFFS/INHALER INH SCH (08:47)
[2020-10-26] MEDS: FLUTICASONE/VILANTEROL 100/25MCG 14 PUFFS/INHALER INH SCH (08:47)
[2020-10-26] MEDS: ALUM HYDROX/MAG TRISILICATE CHEW PO PRN ×2 (09:34→21:26)
--- NOTE | 2020-10-26 09:37 | Electrocardiogram Report ---
Test Reason : Blood Pressure : / mmHG Vent. Rate : 086 BPM Atrial Rate : 197 BPM P-R Int : 000 ms QRS Dur : 146 ms QT Int : 412 ms P-R-T Axes : 000 098 -26 degrees QTc Int : 493 ms Atrial fibrillation Right bundle branch block Nonspecific T wave abnormality Inferior leads Abnormal ECG When compared with ECG of 25-OCT-2020 02:37, No significant change was found Confirmed by Noé Hernandez ([id number]) on 10/26/2020 9:37:04 AM Referred By: REFERRED SELF Confirmed By:Noé Hernandez
[2020-10-26] MEDS ORDERED: MAGNESIUM HYDROXIDE SUSP 30 ML UDC PO ONE (12:57)
[2020-10-26] MEDS ORDERED: MAGNESIUM HYDROXIDE SUSP 30 ML UDC PO PRN (12:57)
[2020-10-26] MEDS ORDERED: MICONAZOLE NITRATE POWDER 43 GM EXT PRN (13:14)
--- NOTE | 2020-10-26 13:43 | Hospitalist Progress Note ---
Date of Service October 26, 2020 Assessment & Plan (1) Atypical chest pain: per admitting [facility] notes: ASSESSMENT AND PLAN: A 65-year-old female with multiple medical problems who presents with chest pain. The patient was recently diagnosed with COVID on 10/11/2020. 1. Chest pain, ACS ruled out - Initial EKG, no significant change. - Troponins negative Last admission was also seen by Cardiology and thought to be mostly atypical chest pain from her ongoing illness Chest pain likely from Worsening of GERD - risk factors: recent steroid use for COVID, Smoking - Protonix BID dietary modification - GI consulted 2. COVID-19 diagnosed on 10/11/2020, she was admitted and was on Decadron, was discharged on prednisone 20 mg. Starting to taper 10 mg then tapered off in few days. - at baseline 2 L NC no respiratory issues 3. Chronic obstructive pulmonary disease and cough. -- Moraxella catarrhalis on sputum cultures.Still has 5 more days of Augmentin. Continue home inhalers and tapering of steroids. 4. Acute kidney injury on chronic kidney disease stage III, presented with creatinine of 2.1. Baseline creatinine looks to be around 1.6. Holding the Lasix, getting gentle fluids. - Nephro consulted 5. History of chronic diastolic congestive heart failure, currently Lasix on hold and getting gentle fluids 6. History of sleep apnea on CPAP at bedtime. 7. History of paroxysmal atrial fibrillation, rate is under control - per Perinatal Specialist recommendations, currently on Toprol-XL 100 mg b.i.d. and diltiazem 180 mg daily and on Coumadin INR is 1.9. 8. History of anxiety and depression. Continue home medications. She is on venlafaxine. 9. Hypertension. She is on Cardizem, Lopressor, and amlodipine. We will monitor the blood pressure. 10. History of diabetes, currently n.p.o. We will cut back the Lantus [address] on insulin sliding scale. Follow the blood sugars. If the second set of troponin is negative, we can start her on ADA and AHA diet and increase the Lantus 16 units b.i.d. and monitor the blood sugars. 11. Chronic pain. Continue home pain medications. 12. Gastroesophageal reflux disease. Continue Protonix. 13. Chronic respiratory failure with hypoxia on oxygen 2 liters. Currently not meeting any criteria for remdesivir. She is maintaining her oxygen saturations . 14. Deep venous thrombosis prophylaxis, on Coumadin. We will follow the PT and INR. 15. Disposition: Observation in tele floor, med-tele. PT and OT prior to discharge. Social service to help with discharge planning. plan of care discussed with patient and her daughter in law over the phone in detail all questions answered she is understanding, agreeable, comfortable with the plan of care Admission and Anticipated Discharge Date Admission Date: October 26, 2020 Subjective ff up for chest pain, etc seen resting in bed, comfortable in good spirits states she again had severe reflux symptoms this AM, relieved by Gaviscon no other chest pain, dyspnea, palpitations no nausea, appetite is good no other symptoms Review of Systems Review of Systems: All systems reviewed & are unremarkable except as noted in Subjective Physical Exam Physical Exam: General- oriented x 3, not in distress, speaks in sentences with no effort or accessory muscle use Eyes- anicteric Neck- no JVD Lungs- clear breath sounds bilaterally, no rales/wheezes Heart- normal rate, regular rhythm; no murmurs Abdomen- normal bowel sounds, nondistended, soft, nontender Extremities- no pretibial edema, no calf tenderness Neuro- alert, oriented x 3; no gross focal neurologic deficits Skin- warm & dry Results & Data Results & Data ([facility]) Vital Signs (Past 12 Hours) Vital Signs Temp Pulse Pulse Resp BP Pulse Ox 10/26/20 11:23 36.4 C L 95 H 20 142/84 H 96 10/26/20 06:58 36.5 C 18 125/74 98 10/26/20 02:46 36.5 C 105 H 22 108/55 L 92 10/26/20 02:00 88
[2020-10-26] MEDS ORDERED: Nursing to Pharmacy Communication SCH (13:45)
--- NOTE | 2020-10-26 14:36 | Nephrology Progress Note ---
Date of Service October 26, 2020 Assessment & Plan (1) Acute kidney injury superimposed on CKD: baseline creatinine 1.5-1.7; at baseline as recently as 10/24 and back to baseline today; then on presentation this admission w/ creat up to peak 2.1; no clear cause, no nsaids, no IV contrast, no documented hemodynamic instaiblity. her OP diuretics -- lasix 80 mg po bid -- were continued through last admission. chemistries acceptable apart from mild hypoantremia, hypokalemia - would observe, no intervention needed. No indication for discussion of dialysis. -no urine studies indicated at this time -bladder scan prn -cont to hold lasix (she is > 4.5L neg ovrenight w/o diuretics) -stopped NS -no K supplements needed today -cotn to avoid nephrotoxins -daily bmp Admission and Anticipated Discharge Date Admission Date: October 26, 2020 Subjective feels much improved; breathing well, had some recurrent chest ddiscomfort this am relieved "when they gave me something to coat my esophagus," no edema, no voiding concerns, no abd pain Review of Systems Review of Systems: All systems reviewed & are unremarkable except as noted in Subjective Physical Exam Constitutional: well developed, well nourished and + obese; no acute distress Eyes: EOM intact bilaterally ENMT: Ears: no external ear abnormality Nose: no external nose abnormality Mouth: + dry oral mucous membranes Neck: no nuchal rigidity Respiratory: normal respiratory effort Auscultation: lungs clear to auscultation bilaterally and + diminished lung sounds Cardiovascular: Rate/Rhythm: regular rate and regular rhythm Extremities: no edema Gastrointestinal (Abdomen): Inspection/Auscultation: normal bowel sounds Percussion/Palpation: abdomen soft; abdomen nontender Musculoskeletal: Extremities: + abnormal strength (generalized weakness) Skin: no rashes, warm and dry Neurologic: clay, fluent speech, no tremor Psychiatric: Orientation: alert and oriented x 3 Speech: normal rate/rhythm/volume of speech Affect: + flat affect Results & Data ([facility]) Vital Signs (Past 12 Hours) Vital Signs Temp Pulse Resp BP Pulse Ox 10/26/20 11:23 36.4 C L 95 H 20 142/84 H 96 10/26/20 06:58 36.5 C 18 125/74 98 10/26/20 02:46 36.5 C 105 H 22 108/55 L 92 Laboratory Results 10/26/20 05:21 10/26/20 05:21
[2020-10-26] MEDS: WARFARIN SOD 5 MG TAB PO SCH (15:37)
[2020-10-26] MEDS: oxyCODONE HCL IR 5 MG TAB (IMMEDIATE RELEASE) PO PRN (20:45)
[2020-10-26] MEDS: ATORVASTATIN 40 MG TAB PO SCH (21:21)
[2020-10-26] MEDS: traZODone HCL 100 MG TAB PO SCH (21:21)
[2020-10-26] MEDS: CETIRIZINE HCL 10 MG TABLET PO SCH (21:22)
[2020-10-27] MEDS: CHECK fentaNYL PATCH PLACEMENT SCH ×2 (00:23→08:09)
[2020-10-27 06:55] LABS: INR 2.9 (0.9-1.1); Prothrombin Time 26.8 Seconds (9.0-12.0)
[2020-10-27] MEDS: METOPROLOL SUCC 50MG EXT REL TAB PO SCH (08:05)
[2020-10-27] MEDS: METHOCARBAMOL 750 MG TABLET PO SCH ×2 (08:05→13:20)
[2020-10-27] MEDS: CHOLECALCIFEROL 1,000 UNITS 25 MCG TAB PO SCH (08:05)
[2020-10-27] MEDS: AMOXICILLIN/CLAVULANATE 875 MG TAB PO SCH (08:06)
[2020-10-27] MEDS: PANTOprazole 40 MG TAB PO SCH (08:06)
[2020-10-27] MEDS: CALCITRIOL 0.25 MCG CAPSULE PO SCH (08:06)
[2020-10-27] MEDS: predniSONE 10 MG TABLET PO SCH (08:06)
[2020-10-27] MEDS: MULTIVITAMIN TAB PO SCH (08:06)
[2020-10-27] MEDS: VENLAFAXINE HCL XR 75 MG CAPXR PO SCH (08:06)
[2020-10-27] MEDS: GABAPENTIN 800 MG TAB PO SCH (08:06)
[2020-10-27] MEDS: dilTIAZem HCL 180 MG CAPCR PO SCH (08:06)
[2020-10-27] MEDS: VENLAFAXINE HCL XR 150 MG CAPXR PO SCH (08:06)
[2020-10-27] MEDS: amLODIPine BESYLATE 5 MG TAB PO SCH (08:06)
[2020-10-27] MEDS: UMECLIDINIUM BROMIDE 62.5MCG/BLISTER 7 PUFFS/INHALER INH SCH (08:07)
[2020-10-27] MEDS: NICOTINE 14 MG/24 HR PATCH TD SCH (08:07)
[2020-10-27] MEDS: FLUTICASONE/VILANTEROL 100/25MCG 14 PUFFS/INHALER INH SCH (08:07)
[2020-10-27] MEDS: INSULIN ASPART 100 UNITS/ML 3 ML PEN SC SCH ×2 (08:09→11:51)
[2020-10-27] MEDS: INSULIN GLARGINE SOLOSTAR 100 UNITS/ML 3 ML PEN SC SCH (08:11)
[2020-10-27 09:24] LABS: BUN Creatinine Ratio 25.2 (10-20); Calcium 9.2 mg/dl (8.5-10.1); Creatinine Clr Calc Pharmacy 40.2 ml/min; Est GFR (African American) 38.2; Potassium 4.2 mmol/L (3.5-5.1)
[2020-10-27] MEDS ORDERED: LACTULOSE SYRUP 20 GM/30 ML UDC PO ONE (12:47)
--- NOTE | 2020-10-27 18:05 | Electrocardiogram Report ---
Test Reason : Blood Pressure : / mmHG Vent. Rate : 088 BPM Atrial Rate : 117 BPM P-R Int : 000 ms QRS Dur : 148 ms QT Int : 406 ms P-R-T Axes : 000 099 005 degrees QTc Int : 491 ms Atrial fibrillation Right bundle branch block Abnormal ECG When compared with ECG of 26-OCT-2020 07:29, No significant change was found Confirmed by Sergio Alvarez ([id number]) on 10/27/2020 6:05:26 PM Referred By: REFERRED SELF Confirmed By:Sergio Alvarez
--- NOTE | 2020-10-28 19:06 | Hospitalist Progress Note ---
Date of Service delayed entry date of service noted below October 28, 2020 Assessment & Plan (1) Atypical chest pain: per admitting [facility] notes: ASSESSMENT AND PLAN: A 65-year-old female with multiple medical problems who presents with chest pain. The patient was recently diagnosed with COVID on 10/11/2020. 1. Chest pain, ACS ruled out - Initial EKG, no significant change. - Troponins negative Last admission was also seen by Cardiology and thought to be mostly atypical chest pain from her ongoing illness Chest pain likely from Worsening of GERD - risk factors: recent steroid use for COVID, Smoking - Protonix BID dietary modification - GI consulted- recommend Gaviscon PRN- patient reports relief of chest pain with Gaviscon Defer EGD eval at this time recent COVID, Moraxella infection - resolved upon discharge 2. COVID-19 diagnosed on 10/11/2020, she was admitted and was on Decadron, was discharged on prednisone 20 mg. Starting to taper 10 mg then tapered off in few days. - at baseline 2 L NC no respiratory issues 3. Chronic obstructive pulmonary disease and cough. -- Moraxella catarrhalis on sputum cultures complete 2 more days of Augmentin. Continue home inhalers and tapering of steroids. 4. Acute kidney injury on chronic kidney disease stage III, - presented with creatinine of 2.1. Baseline creatinine looks to be around 1.6. Holding the Lasix, getting gentle fluids. - Nephro consulted: Lasix 40mg BID ordered; instructed additional 40mg TID if with weight gain > 3lb in 1 day or 5 lbs in 2 days (full details in discharge instructions) 5. History of chronic diastolic congestive heart failure - management of Lasix per above 6. History of sleep apnea on CPAP at bedtime. 7. History of paroxysmal atrial fibrillation, rate is under control - per Biometrics Consultant recommendations, currently on Toprol-XL 100 mg b.i.d. and diltiazem 180 mg daily and on continue Coumadin 8. History of anxiety and depression. Continue home medications. She is on venlafaxine. 9. Hypertension. on Cardizem, Lopressor, and amlodipine. 10. History of diabetes continue usual regimen 11. Chronic pain. Continue home pain medications. 12. Gastroesophageal reflux disease. Continue Protonix. 13. Chronic respiratory failure with hypoxia on oxygen 2 liters. did not meet any criteria for remdesivir. She is maintaining her oxygen saturations . 14. Deep venous thrombosis prophylaxis, on Coumadin. 15. Disposition: d/c home plan of care discussed with patient in detail all questions answered she is understanding, agreeable, comfortable with the plan of care Admission and Anticipated Discharge Date Admission Date: October 26, 2020 Subjective ff up for chest pain, etc seen resting in bed, sitting up comfortable, not in distress in very good spirits states she feels much better overall denies chest pain, dyspnea, palpitations, dizziness, headache reflux is much better no nausea/vomiting, tolerating diet well no other symptoms states she is ready and would like to be discharged Review of Systems Review of Systems: All systems reviewed & are unremarkable except as noted in Subjective Physical Exam Physical Exam: General- oriented x 3, not in distress, speaks in sentences with no effort or accessory muscle use Eyes- anicteric Neck- no JVD Lungs- clear breath sounds bilaterally Heart- normal rate, regular rhythm; no murmurs Abdomen- normal bowel sounds, nondistended, soft, nontender Extremities- no pretibial edema, no calf tenderness Neuro- alert, oriented x 3; no gross focal neurologic deficits Skin- warm & dry Results & Data Results & Data ([facility]) Laboratory Results noted and reviewed
--- NOTE | 2020-10-30 13:03 | Discharge Summary ---
Date of Service October 30, 2020 Admission HPI Per Admitting Provider CHIEF COMPLAINT: Chest pain. HISTORY OF PRESENT ILLNESS: This is a 65-year-old female with past medical history significant for hyperlipidemia, hypothyroidism, type 2 diabetes, chronic respiratory failure with hypoxia on 2 liters oxygen at all time, obstructive sleep apnea on CPAP at bedtime, COPD, history of cor pulmonale, history of paroxysmal atrial fibrillation, venous thrombosis, essential hypertension, venous stasis, chronic kidney disease stage III, Lynn's esophagus, cervical disc displacement, generalized osteoarthrosis, lumbar degenerative disc disease, senile osteoporosis, anemia, tobacco use disorder, status post mitral valve repair, depression, PTSD, who lives alone, ambulates with a walker, presents with chest pain. The patient recently was diagnosed with COVID on 10/11/2020 and she was admitted to hospital on 10/21/2020 with headache and chest pain, seen by Cardiology, chest pain thought to be atypical for angina, as its worsening with cough and movement . During hospital stay,she converted back to atrial fibrillation, thought to be from stress of illness or beta mana withdrawal and or hypokalemia. Her medications adjusted with Lopressor changed to Toprol-XL and diltiazem dose was adjusted and she did fine and she was discharged home. After going home after 6 to 7 hours she came back to the hospital with chest pain. The patient says in the middle of the night she woke up with severe chest pain, pressure-like feeling, 10/10 in severity and she came to the ER. Currently, chest pain is resolved. Denies any headache. No shortness of breath. EKG is unremarkable. Troponin is 0.026, while her last hospitalization troponin was always negative less than 0.015, so we were called for admission. Also, creatinine is 2.1, baseline is around 1.6. Currently sleepy but arousable and gives all answers appropriately. Denies any headache, currently no blurred vision, says she has some runny nose, no sore throat, no loss of sense, or sense of smell or taste. Appetite is good. Chest pain is resolved now. No shortness of breath. Still has some cough with dark phlegm. No nausea, no abdominal pain, no diarrhea, no bloody stools or black stools. Normal bladder movements. Ambulating with a walker. Hemodynamically stable. Admission Exam Per Admitting Provider GENERAL: The patient is obese, not in acute distress. VITAL SIGNS: Temperature 36.8, pulse 70, respiratory rate 18, blood pressure 113/69, oxygen 97% on 2 liters. HEENT: Pupils equal, round, and reactive to light. Oral mucosa somewhat dry. NECK: No neck masses. No JVD seen. CARDIOVASCULAR: S1, S2 heard, regular rate and rhythm, no murmur, no gallop. RESPIRATORY SYSTEM: Normal AP diameter. No accessory muscle use. No wheezing, no crackles. ABDOMEN: Soft, bowel sounds present, nontender. No distention. CENTRAL NERVOUS SYSTEM: Cranial nerves II-XII grossly intact, nonfocal. EXTREMITIES: No edema, no erythema seen. Principal Diagnosis ATYPICAL CHEST PAIN, SECONDARY TO GERD Discharge Exam General- oriented x 3, not in distress, speaks in sentences with no effort or accessory muscle use Eyes- anicteric Neck- no JVD Lungs- clear breath sounds bilaterally Heart- normal rate, regular rhythm; no murmurs Abdomen- normal bowel sounds, nondistended, soft, nontender Extremities- no pretibial edema, no calf tenderness Neuro- alert, oriented x 3; no gross focal neurologic deficits Skin- warm & dry Discharge Data Allergies Allergy/AdvReac Type Severity Reaction Status Date / Time bee venom protein (honey bee) Allergy Severe SWELLING Verified 10/29/20 20:53 lisinopril Allergy Intermediate FACE Verified 10/29/20 20:53 SWELLING potato Allergy Intermediate BBQ chips Verified 10/29/20 20:53 - facial swelling metronidazole Allergy Mild FACE Verified 10/29/20 20:53 SWELLING strawberry Allergy Mild HIVES Verified 10/29/20 20:53 alprazolam Allergy Unknown RED FACE, Verified 10/29/20 20:53 FACE SWELLING lactose AdvReac Intermediate VOMTING Verified 10/29/20 20:53 DIARRHEA ABDOMINAL PAIN-LACTOSE INTOLERANCE prednisone AdvReac Mild AGGRESSIVE Verified 10/29/20 20:53 BEHAVIOR colesevelam AdvReac Unknown unknown Verified 10/29/20 20:53 lithium AdvReac Unknown jitters Verified 10/29/20 20:53 Consultations 10/25/20 03:38 ED Decision to Admit Stat 10/25/20 06:56 Consult Case Management - Discharge Planning Routine 10/25/20 08:49 Consult Nephrology Routine 10/25/20 09:03 Consult Gastroenterology Routine Hospital Course (1) Atypical chest pain: per admitting C notes: ASSESSMENT AND PLAN: A 65-year-old female with multiple medical problems who presents with chest pain. The patient was recently diagnosed with COVID on 10/11/2020. 1. Chest pain, ACS ruled out - Initial EKG, no significant change. - Troponins negative Last admission was also seen by Cardiology and thought to be mostly atypical chest pain from her ongoing illness Chest pain likely from Worsening of GERD - risk factors: recent steroid use for COVID, Smoking - Protonix BID dietary modification - GI consulted- recommend Gaviscon PRN- patient reports relief of chest pain with Gaviscon Defer EGD eval at this time recent COVID, Moraxella infection - resolved upon discharge 2. COVID-19 diagnosed on 10/11/2020, she was admitted and was on Decadron, was discharged on prednisone 20 mg. Starting to taper 10 mg then tapered off in few days. - at baseline 2 L NC no respiratory issues 3. Chronic obstructive pulmonary disease and cough. -- Moraxella catarrhalis on sputum cultures complete 2 more days of Augmentin. Continue home inhalers and tapering of steroids. 4. Acute kidney injury on chronic kidney disease stage III, - presented with creatinine of 2.1. Baseline creatinine looks to be around 1.6. Holding the Lasix, getting gentle fluids. - Nephro consulted: Lasix 40mg BID ordered; instructed additional 40mg TID if with weight gain > 3lb in 1 day or 5 lbs in 2 days (full details in discharge instructions) 5. History of chronic diastolic congestive heart failure - management of Lasix per above 6. History of sleep apnea on CPAP at bedtime. 7. History of paroxysmal atrial fibrillation, rate is under control - per Mapping Engineer recommendations, currently on Toprol-XL 100 mg b.i.d. and diltiazem 180 mg daily and on continue Coumadin 8. History of anxiety and depression. Continue home medications. She is on venlafaxine. 9. Hypertension. on Cardizem, Lopressor, and amlodipine. 10. History of diabetes continue usual regimen 11. Chronic pain. Continue home pain medications. 12. Gastroesophageal reflux disease. Continue Protonix. 13. Chronic respiratory failure with hypoxia on oxygen 2 liters. did not meet any criteria for remdesivir. She is maintaining her oxygen saturations . 14. Deep venous thrombosis prophylaxis, on Coumadin. 15. Disposition: d/c home plan of care discussed with patient in detail all questions answered she is understanding, agreeable, comfortable with the plan of care Total Time Total Time Spent Total Time Spent (In Minutes): 60 Discharge Plan Discharge Items Patient Disposition: Home - Home Health Services Reason For Visit: CHEST PAIN Discharge Diagnosis: Chest pain secondary to severe gastroesophageal reflux disease Activity: Resume your previous activity Activity Comment: Gradually as tolerated Lifting: Wait until after follow-up appointment Exercise/Sports: Wait until after follow-up appointment Driving/Machine Use: No driving until reevaluated and allowed by primary care physician Non-emergency contact: Primary Care Provider Call non-emergency contact if: you have any medication questions, your symptoms worsen, your pain is not controlled, your pain is worsening, your pain is unusual for you, your pain is concerning for you and you have a fever Follow-up/Referrals: Winter Alberto MD, PhD [Physician] - Manoj Goins DO [Primary Care Provider] - (Date & Time 11/02/2020 12:20 PM Provider Manoj Goins DO Department General Internal Medicine [facility] PLEASE NOTE THAT THIS IS A TELEPHONE APPOINTMENT. YOUR PHYSICIAN WILL CALL YOU AT THE APPOINTMENT TIME. IF YOU HAVE ANY QUESTIONS REGARDING YOUR APPOINTMENT, PLEASE CALL ) Diet: Carb Consistent or DM2 and Heart Healthy Addtl Attending Provider Instructions: Please review your new medication list and follow instructions carefully. Lasix is being reduced to 40 mg twice a day. Take additional 40 mg 3 times a day for weight gain of more than 3 pounds in 24 hours or 5 pounds in 2 days. Do not consume acidic food or beverages, spicy foods, carbonated or caffeinated beverages. Always stay upright for at least an hour after meals. No smoking or alcohol. Eat small, frequent meals. Follow-up with your primary care physician as outlined above. Follow-up with [facility] kidney specialist Dr. Winter Tran on November 07, 2020. Call your Primary Care doctor if any of the following symptoms or problems start or get worse: Shortness of breath or difficulty breathing Wake up at night short of breath Chest pain Cough Swelling of your hands, feet, or legs More fatigued or tired with your normal activity Palpitations - sudden fast heart beats WEIGHT Weigh yourself every morning after using the bathroom. Use the same scale. Wear the same amount of clothing. Write your weight down on a chart. Call your Primary Care doctor if you gain more than 2-3 pounds in 1-2 days. MEDICATIONS Use this discharge instruction sheet for medication instructions. Take your medications at the time your doctor ordered. Do not skip a dose of your medicines. If you miss a dose of medicine, take it as soon as possible, but DO NOT DOUBLE A DOSE. Read your medicine information when you get home. Know all of the side effects of your medicine. If in doubt, ask your pharmacist Call your Primary Care doctor's office if you have any side effects. Be sure all of your doctors know what medicine and herbs you take (including cold, flu, and herbal medicine). Take the following with you to your follow-up doctor appointments: Weight Chart Medication List List of questions Do not drink excessive alcohol, beer or wine. . Who to Call and When: Call 911 or go to the Emergency Room if: If at any time you feel your situation is an emergency You have tightness or pain in your chest that does not go away with rest or Nitroglycerin You are very short of breath even with rest . Pending Studies at Discharge: Yes Studies:: Repeat blood work-basic metabolic profile-on follow-up with your primary care physician next week. Stand-Alone Forms: My [facility] [employer], Smoking Cessation Medications and DC Order Prescriptions: New Gaviscon 80-14.2 mg Tablet,Chewable 1 tab PO TID PRN (Reason: REFLUX) Qty: 20 RF: 0 Continued gabapentin 800 mg Tablet 800 mg PO BID RF: 0 alendronate 70 mg tablet 70 mg PO WK RF: 0 warfarin 5 mg tablet 7.5 mg PO WK RF: 0 potassium chloride 10 mEq tablet extended release 10 meq PO TID RF: 0 Lantus U-100 Insulin 100 unit/mL solution 16 unit SUBCUT BID RF: 0 amlodipine 5 mg tablet 5 mg PO QAM RF: 0 oxycodone 10 mg tablet 10 mg PO Q6 PRN (Reason: Pain) RF: 0 nitroglycerin [Nitrostat] 0.4 mg tablet, sublingual 0.4 mg sublingual DIRECTED PRN (Reason: Chest Pain) RF: 0 multivitamin Tablet 1 tab PO QAM RF: 0 atorvastatin 40 mg Tablet 40 mg PO HS RF: 0 fentanyl 50 mcg/hr Patch 72 Hour 50 mcg TRANSDERMAL [id number] RF: 0 cetirizine 10 mg Tablet 10 mg PO HS RF: 0 venlafaxine 150 mg Capsule,Extended Release 24hr 150 mg PO QAM RF: 0 ondansetron 8 mg Tablet,Disintegrating 8 mg PO BID PRN (Reason: Nausea) RF: 0 methocarbamol 750 mg Tablet 750 mg PO TID RF: 0 warfarin 5 mg Tablet 5 mg PO 6XWK RF: 0 epinephrine [EpiPen] 0.3 mg/0.3 mL Auto-Injector 0.3 mg IM DIRECTED PRN (Reason: Allergic Reaction) RF: 0 docusate sodium 100 mg Tablet 100 mg PO DAILY PRN (Reason: Constipation) RF: 0 Spiriva with HandiHaler 18 mcg Capsule, W/Inhalation Device 1 cap INHALATION QAM RF: 0 cholecalciferol (vitamin D3) [Vitamin D3] 1,000 unit Tablet 1,000 unit PO QAM RF: 0 venlafaxine 75 mg Capsule,Extended Release 24hr 75 mg PO QAM RF: 0 trazodone 100 mg Tablet 200 mg PO HS RF: 0 zolpidem 5 mg Tablet 5 mg PO HS PRN (Reason: Sleep) RF: 0 levalbuterol HCl 1.25 mg/3 mL solution for nebulization 1.25 mg INHALATION Q4H PRN (Reason: Wheezing) RF: 0 albuterol sulfate [Proventil HFA] 90 mcg/actuation HFA aerosol inhaler 2 puffs INH Q6H PRN (Reason: Shortness Of Breath Or Wheezing) RF: 0 fluticasone propion-salmeterol [Advair Diskus] 250-50 mcg/dose blister with device 1 inh INHALATION BID RF: 0 calcitriol 0.25 mcg capsule 0.25 mcg PO UD RF: 0 diltiazem HCl 180 mg Capsule,Extended Release 24hr 180 mg PO QAM 30 Days Qty: 30 RF: 0 metoprolol succinate 50 mg Tablet Extended Release 24 Hr 100 mg PO BID 30 Days Qty: 120 RF: 0 Changed furosemide 40 mg Tablet 40 mg PO BID Qty: 0 RF: 0 prednisone 20 mg tablet 10 mg PO QAM Qty: 0 RF: 0 pantoprazole 40 mg tablet,delayed release (DR/EC) 40 mg PO BID Qty: 0 RF: 0 Discontinued amoxicillin-pot clavulanate [Augmentin] 875-125 mg Tablet 1 tab PO BIDM 5 Days Qty: 10 RF: 0 Discharge Orders: Discharge Order (Routine); Ordered 10/27/20 Ordered By: Abdelrahman Hollins/Other Patient Handouts: What to Know When TakingWarfarin Admission Data Admit Date/Time: 10/26/20 12:58 Attending Provider: Abdelrahman Moreau Admit Provider: Ronak Nguyen Primary Care Provider: Manoj Goins Other Providers: Ronak Nguyen ; Elise Guillaume ; Winter Alberto ; Kin Irvin Other Interventions: Discharge Summary Assessment (RN) Last Done: 10/27/20 13:44
[2020-10-30] MEDS ORDERED: WARFARIN SOD 7.5 MG TAB PO SCH (16:00)
[2020-11-01] MEDS ORDERED: ALENDRONATE SODIUM 70 MG TAB PO SCH (06:00)
--- NOTE | 2020-11-01 08:51 | Coding Query ---
CODING QUERY To promote full compliance with coding requirements relating to patient care, provider participation is requested in all cases of search advertising strategist uncertainty. Please assist us with the question(s) below: Coding Question(s): There is documentation of recent COVID-19 infection on the ER and the rest of the chart and Discharge Summary document, " COVID-19 diagnosed on 10/11/2020, she was admitted and was on Decadron, was discharged on prednisone 20 mg. Starting to taper 10 mg then tapered off in few days". Please specify below regarding COVID-19. (x ) COVID-19 was treated/monitored during this admission ( ) History of COVID-19 only on this admission ( ) Other: Please Specify Physician's Response(s): Thank you Ольга Hernandez Principal Diagnosis: "that condition established after study, to be chiefly responsible for occasioning the admission of the patient to the hospital for care." Co-Existing Principal Diagnosis: "when two or more diagnoses equally meet the criteria for principal diagnosis as determined by the circumstances of admission, diagnostic work up, and/or therapy provided, and the Alphabetic Index, Tabular List, or another coding guideline does not provide sequencing direction, any one of the diagnoses may be sequenced first." "When the physician has documented what appears to be a current diagnosis in the body of the record, but has not included the diagnosis in the final diagnostic statement, the physician should be asked whether the diagnosis should be added." (Source Coding Clinic 2 QTR90. p3-4) VAHID
== END 2020-10-27 14:21 | disposition home health service (06) | DRG 682 ==
LOC: ED 02:31 → 2N 02:31 → SUATTDRO 05:53 → 2N 06:25

== ENCOUNTER 2020-11-08 18:38 | Inpatient (IN) ==
[2020-11-08] MEDS ORDERED: ACETAMINOPHEN 1,000 MG/100 ML VIAL IV STA (19:06)
--- NOTE | 2020-11-08 19:11 | Emergency Department Note ---
Impression & Plan Substernal chest pain, Atrial fibrillation with rapid ventricular response, Headache ED Provider Note INFORMANT: Patient ED PROVIDER(S): Ector Howell MD CHIEF COMPLAINT: Chest pain PLAN: Disposition: Admitted Condition: Good Outpatient prescription management: none Referral: None MEDICAL DECISION MAKING: Patient has any complaining of chest pain. She is also noting headache. Her physical examination did not reveal any signs of otitis media or otitis externa. She is already taking Augmentin. Patient did not have meningeal findings. She was given Tylenol IV. The patient had A. fib noted on her ECG. No ST elevation. The blood work showed a mild anemia but no leukocytosis. Baseline renal insufficiency. Her INR was supratherapeutic at 4.7. Troponin negative. Patient was reassessed and still noted some pain. She was given a small dose of IV Toradol. Consultation was made with the [facility], Dr. Humphrey for admission and further management regarding her chest pain. Triage Nursing notes reviewed and agree them. ] Vital Signs: reviewed and remarkable for no significant abnormalities Differential diagnosis: Cardiac ischemia, aortic dissection, pulmonary embolism, pneumothorax, pneumonia, pericarditis, myocarditis, esophageal rupture, GERD, cholecystitis, pancreatitis, musculoskeletal, migraine, otitis media, infection, as well as other pathologies. Diagnostics interpreted by me: ECG: Twelve-lead ECG reveals atrial a flutter with a right bundle branch block. There inferior T wave inversions. Rate was [address] elevation. When compared to November 04 there is no significant change other than a flutter has replaced A. fib. Cardiac Monitoring: Cardiac monitoring ordered by me: The patient was placed on continuous cardiac monitoring and observed. It revealed a flutter at 95 beats per minute without ectopy or evidence of dysrhythmia. Imaging studies: Chest x-ray. Findings: A chest x-ray was performed and revealed no pneumothorax, effusion, infiltrate, pulmonary edema, free air under the diaphragm, or wide mediastinum. Impression: No acute disease. Consultation(s): [facility] HPI: The patient is a 65 year old female who presents to the Emergency Room with complaints of chest pain. This started today and is substernal. The patient also notes the following associated symptoms, headache, nausea, SOB, palpitations, right ear ache for which she is taking augmentin. The patient has found no relieving factors. Current pain is rated as 8/10. INR this week t herapeutic. Recent ED visit for SOB and palpitations. Pt denies LOC, fevers, chills, diaphoresis, visual changes, neck pain, vomiting, abdominal pain, back pain, melena, hematochezia, urinary symptoms, numbness, weakness, lymphadenopathy, rash, or other complaints. ROS: See above HPI for pertinent positives & negatives. A total of 10 systems reviewed and were otherwise negative. PAST MEDICAL HISTORY:See Below , Afib, COVID PAST SURGICAL HISTORY:See Below, FAMILY HISTORY:See Below SOCIAL HISTORY:See Below, No ETOH HOME MEDICATIONS:See Below ALLERGIES:See Below VITALS:See Below PHYSICAL EXAMINATION: GENERAL: Awake, alert, uncomfortable-appearing, in no distress HENT: Normocephalic, atraumatic. Oropharynx unremarkable. EYES: Normal conjunctiva. Sclera non-icteric. NECK: Inspection normal. Non-tender. Supple. No nuchal rigidity. FROM. No ma sses. RESPIRATORY: Clear to auscultation. No wheezes. No rales. Normal respiratory effort. CARDIAC: Borderline tachy rate. Irregular rhythm. No murmurs. No rubs. Extremities warm and well perfused. Pulses equal. No JVD. GI: Soft, non-distended. No tenderness to palpation. No rebound or guarding. No masses. RECTAL: Deferred. MUSCULOSKELETAL: Atraumatic. Chest examination reveals no tenderness. The back is symmetrical on inspection without obvious abnormality. There is no CVA tenderness to palpation. No joint edema. LOWER EXTREMITIES: Calves are equal size bilaterally and non-tender. No edema. Chronic venous discoloration. NEURO: Normal sensorium. No sensory or motor deficits noted. SKIN: No rash or jaundice noted. Ector Howell MD Past Med/Surg History Medical History Anxiety Asthma 3LPM via n/c mostly continuous (although patient states she does not wear this all the time) Atrial fibrillation a. fib/a. flutter s/p cardioversion (2017) Lynn esophagus Bipolar disorder Chronic back pain Chronic cor pulmonale Chronic kidney disease stage III Chronic obstructive pulmonary disease 3LPM via n/c mostly continuous (although patient states she does not wear this all the time) COVID-19 virus detected + 10/11/20 CVA (cerebral vascular accident) 2004 (per records; patient denies) Degeneration of cervical intervertebral disc Depression Diastolic CHF, chronic DM type 2 (diabetes mellitus, type 2) Fibromyalgia Gastroparesis GERD (gastroesophageal reflux disease) History of cardioversion History of Clostridium difficile infection History of DVT (deep vein thrombosis) left "hand" 2005- on AC HTN (hypertension) Hyperlipidemia Hypothyroidism no current medication per doctor orders. 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 Obesity Obstructive sleep apnea treated with BiPAP cpap night Osteoarthritis Peripheral neuropathy Post traumatic stress disorder Surgical History History of adenoidectomy History of appendectomy LAPAROSCOPY History of cardiac cath 2004= no stents History of carpal tunnel release left History of cataract surgery BILATERAL History of cholecystectomy LAPAROSCOPY History of colonoscopy History of esophagogastroduodenoscopy (EGD) History of hysterectomy EMIGDIO WITH BSO History of mitral valve repair 2004 + resection fibroelastoma History of tonsillectomy Hx of lumpectomy right breast BENIGN Hx of tubal ligation Hx of umbilical hernia repair S/P trigger finger release RIGHT/LEFT Family History Mother Family history of diabetes mellitus Sister Family history of diabetes mellitus Ulcerative colitis Social History Smoking Status: Current every day smoker Tobacco Type: Cigarettes Cigarettes Per Day: 10; Second Hand Exposure: Yes; Hx Alcohol Use: No Hx Substance Use: No Preferred Language: Colombian Communication Ability: Effective Visual Impairment: No Limitations House Repairer Required: No Beliefs That Will Affect Care: None marital status: / Current Living Situation: Alone Current Living Situation Comment: APARTMENT Feels Safe at Home: Yes Safety Concerns: Feels Safe At This Time Assistive Devices: CPAP, Oxygen - Continuous and Walker Allergies Allergies Allergy/AdvReac Type Severity Reaction Status Date / Time bee venom protein (honey bee) Allergy Severe SWELLING Verified 10/29/20 20:53 lisinopril Allergy Intermediate FACE Verified 10/29/20 20:53 SWELLING potato Allergy Intermediate BBQ chips Verified 10/29/20 20:53 - facial swelling metronidazole Allergy Mild FACE Verified 10/29/20 20:53 SWELLING strawberry Allergy Mild HIVES Verified 10/29/20 20:53 alprazolam Allergy Unknown RED FACE, Verified 10/29/20 20:53 FACE SWELLING lactose AdvReac Intermediate VOMTING Verified 10/29/20 20:53 DIARRHEA ABDOMINAL PAIN-LACTOSE INTOLERANCE prednisone AdvReac Mild AGGRESSIVE Verified 10/29/20 20:53 BEHAVIOR colesevelam AdvReac Unknown unknown Verified 10/29/20 20:53 lithium AdvReac Unknown jitters Verified 10/29/20 20:53 Home Meds Home Medications Medication Instructions Recorded Confirmed Spiriva with HandiHaler 1 cap INHALATION QAM 06/19/18 11/08/20 atorvastatin 40 mg PO HS 06/19/18 11/08/20 cetirizine 10 mg PO HS 06/19/18 11/08/20 cholecalciferol (vitamin D3) 1,000 unit PO QAM 06/19/18 11/08/20 [Vitamin D3] docusate sodium 100 mg PO BID 06/19/18 11/08/20 epinephrine [EpiPen] 0.3 mg IM DIRECTED PRN 06/19/18 11/08/20 fentanyl 50 mcg TRANSDERMAL [id number] 06/19/18 11/08/20 methocarbamol 750 mg PO TID 06/19/18 11/08/20 multivitamin 1 tab PO QAM 06/19/18 11/08/20 ondansetron 8 mg PO BID PRN 06/19/18 11/08/20 venlafaxine 150 mg PO QAM 06/19/18 11/08/20 warfarin 5 mg PO [id number] 06/19/18 11/08/20 trazodone 200 mg PO HS 09/14/18 11/08/20 venlafaxine 75 mg PO QAM 09/14/18 11/08/20 zolpidem 5 mg PO HS 09/14/18 11/08/20 gabapentin 800 mg PO BID 05/28/19 11/08/20 alendronate 70 mg tablet 70 mg PO WK tab 06/10/19 11/08/20 warfarin 7.5 mg PO WK 09/19/19 11/08/20 Lantus U-100 Insulin 18 unit SUBCUT BID 03/02/20 11/08/20 potassium chloride 40 meq PO TID 03/02/20 11/08/20 albuterol sulfate [Proventil HFA] 2 puffs INH Q6H PRN 03/24/20 11/08/20 levalbuterol HCl 1.25 mg INHALATION Q4H PRN 03/24/20 11/08/20 amlodipine 5 mg PO QAM 05/15/20 11/08/20 nitroglycerin [Nitrostat] 0.4 mg SUBLINGUAL DIRECTED PRN 07/02/20 11/08/20 oxycodone 10 mg PO Q6H PRN 07/02/20 11/08/20 fluticasone propion-salmeterol 1 inh INHALATION BID 08/01/20 11/08/20 [Advair Diskus] calcitriol 0.25 mcg PO DIRECTED 10/21/20 11/08/20 Al hyd-Mg tr-alg ac-sod bicarb 1 tab PO TID PRN 11/08/20 11/08/20 [Gaviscon] acetaminophen 500 mg PO Q6H PRN 11/08/20 11/08/20 amitriptyline 50 mg PO HS 11/08/20 11/08/20 benzonatate 100 mg PO TID PRN 11/08/20 11/08/20 furosemide 80 mg PO BID 11/08/20 11/08/20 levalbuterol tartrate [Xopenex HFA] 1 puff INHALATION Q4H PRN 11/08/20 11/08/20 melatonin 10 mg PO HS 11/08/20 11/08/20 metoprolol succinate 100 mg PO BID 11/08/20 11/08/20 pantoprazole 40 mg PO BID 11/08/20 11/08/20 polyethylene glycol 3350 17 g PO DAILY 11/08/20 11/08/20 prednisone See Rx Instructions .ROUTE 11/08/20 11/08/20 .COMPLEX PRN prochlorperazine maleate 10 mg PO Q6H PRN 11/08/20 11/08/20 [Compazine] Previous Rx's Medication Instructions Recorded diltiazem HCl 180 mg PO QAM 30 Days #30 cap 10/24/20 amoxicillin-pot clavulanate 1 tab PO BID #14 tab 11/04/20 [Augmentin] Results & Data (ED) Vital Signs Vital Signs - 24 hr 11/08/20 18:43 11/08/20 18:48 11/08/20 18:58 Temperature 36.7 C Temperature Source Oral Pulse Rate 105 H 99 H 98 H Pulse Rate from SpO2 Sensor 104 H Respiratory Rate 21 18 Blood Pressure 139/86 139/86 Blood Pressure Mean 103 103 Pulse Oximetry 98 97 97 Oxygen Delivery Method Nasal Cannula Nasal Cannula Nasal Cannula Oxygen Flow Rate 2 2 2 Sepsis Recent Fever Within 48 Hours No Sepsis New/Unexplained Change in Mental Status No Sepsis Action Taken by Nursing No Action Required 11/08/20 19:47 11/08/20 21:00 11/08/20 21:22 Temperature Temperature Source Pulse Rate 96 H 101 H Pulse Rate from SpO2 Sensor 97 H 96 H 100 H Respiratory Rate 17 21 16 Blood Pressure 128/58 L 131/101 H Blood Pressure Mean 81 111 Pulse Oximetry 95 95 95 Oxygen Delivery Method Nasal Cannula Nasal Cannula Nasal Cannula Oxygen Flow Rate 2 2 2 Sepsis Recent Fever Within 48 Hours Sepsis New/Unexplained Change in Mental Status Sepsis Action Taken by Nursing 11/08/20 22:00 Temperature Temperature Source Pulse Rate 96 H Pulse Rate from SpO2 Sensor 96 H Respiratory Rate 16 Blood Pressure 110/87 Blood Pressure Mean 94 Pulse Oximetry 95 Oxygen Delivery Method Nasal Cannula Oxygen Flow Rate 2 Sepsis Recent Fever Within 48 Hours Sepsis New/Unexplained Change in Mental Status Sepsis Action Taken by Nursing Laboratory Data Result diagrams: 11/08/20 19:20 11/08/20 19:20 Lab Results 11/08/20 11/08/20 11/08/20 Range/Units 19:20 19:20 19:20 WBC 7.28 (4.8-10.8) K/uL RBC 3.97 L (4.2-5.4) M/uL Hgb 11.8 L (12.0-16.0) g/dL Hct 35.8 L (37-47) % MCV 90.2 (80-100) fL MCH 29.7 (25-34) pg MCHC 33.0 (32-36) g/dL RDW Std Deviation 48.4 H (36.4-46.3) fL RDW Coeff of King 15.0 H (11.5-14.5) % Plt Count 277 (130-400) K/uL MPV 9.4 (7.4-10.4) fL Immature Gran % (Auto) 0.3 % Neut % (Auto) 75.4 % Lymph % (Auto) 13.9 % Brown % (Auto) 8.0 % Eos % (Auto) 2.3 % Baso % (Auto) 0.1 % Neut # (Auto) 5.49 (1.4-6.5) K/uL Lymph # (Auto) 1.01 L (1.2-3.4) K/uL Brown # (Auto) 0.58 (0.11-0.59) K/uL Eos # (Auto) 0.17 (0-0.5) K/uL Baso # (Auto) 0.01 (0-0.2) K/uL Immature Gran # (Auto) 0.02 (0.00-0.02) K/uL PT 42.1 H (9.0-12.0) Seconds INR 4.7 H (0.9-1.1) Sodium 137 (136-145) mmol/L Potassium 3.9 (3.5-5.1) mmol/L Chloride 101 (98-107) mmol/L Carbon Dioxide 31 (21-32) mmol/L Anion Gap 4.0 (3-11) BUN 25 H (7-18) mg/dl Creatinine 1.65 H (0.6-1.2) mg/dl Est Cr Clr Drug Dosing 40.7 ml/min Est GFR ( Amer) 37.6 Est GFR (Non-Af Amer) 32.5 BUN/Creatinine Ratio 14.8 (10-20) Glucose 206 H (70-99) mg/dl Calcium 9.0 (8.5-10.1) mg/dl Magnesium 2.0 (1.8-2.4) mg/dl Total Bilirubin 0.4 (0.2-1) mg/dl AST 27 (15-37) U/L ALT 44 (12-78) U/L Alkaline Phosphatase 77 (45-117) U/L Troponin I < 0.015 (0-0.045) ng/ml Total Protein 6.5 (6.4-8.2) gm/dl Albumin 2.8 L (3.4-5.0) gm/dl Globulin 3.7 (2.5-4.0) gm/dl Albumin/Globulin Ratio 0.8 L (0.9-2) Lipase 102 (73-393) U/L Administered Medications Miscellaneous (Check Fentanyl Patch Placement) 1 ea N/A QS JORGE Stop: 12/09/20 00:56 Last Admin: 11/09/20 01:31 Dose: 1 ea Documented by: [id number] Discontinued Medications Furosemide (Furosemide 40 Mg/4 Ml Vial) 40 mg IV NOW STA Stop: 11/08/20 22:22 Last Admin: 11/08/20 22:40 Dose: 40 mg Documented by: [id number] Acetaminophen ([facility]) 1,000 mg in 100 mls @ 400 mls/hr IV NOW STA Stop: 11/08/20 19:20 Last Infusion: 11/08/20 19:39 Dose: 0 mls/hr Documented by: [id number] Admin: 11/08/20 19:24 Dose: 400 mls/hr Documented by: [id number] Ketorolac Tromethamine (Ketorolac Tromethamine 15 Mg/Ml Vial) 10 mg IV NOW ONE Stop: 11/08/20 22:09 Last Admin: 11/08/20 22:18 Dose: 10 mg Documented by: [id number] Discharge Plan Visit Data Chief Complaint: Chest Pain Stated Complaint: CHEST PAIN ED Provider: Ector Howell Discharge Problem: Substernal chest pain, Atrial fibrillation with rapid ventricular response, Headache Patient Disposition: Admitted As Inpatient Discharge Instructions Interventions: ED Discharge Assessment Last Done: 11/09/20 00:21
[2020-11-08 19:28] LABS: Basophils # (auto) 0.01 K/uL (0-0.2); Basophils % (auto) 0.1 %; Eosinophils # (auto) 0.17 K/uL (0-0.5); Eosinophils % (auto) 2.3 %; Hematocrit (blood only) 35.8 % (37-47); Hemoglobin 11.8 g/dL (12.0-16.0); Immature Granulocytes # (auto) 0.02 K/uL (0.00-0.02); Immature Granulocytes % (auto) 0.3 %; Lymphocytes # (auto) 1.01 K/uL (1.2-3.4); Lymphocytes % (auto) 13.9 %; Mean Corpuscular Hemoglobin 29.7 pg (25-34); Mean Corpuscular Volume 90.2 fL (80-100); Mean Platelet Volume 9.4 fL (7.4-10.4); Monocytes # (auto) 0.58 K/uL (0.11-0.59); Neutrophils # (auto) 5.49 K/uL (1.4-6.5); Neutrophils % (auto) 75.4 %; Platelet Count 277 K/uL (130-400); RDW Standard Deviation 48.4 fL (36.4-46.3); Red Blood Count 3.97 M/uL (4.2-5.4); White Blood Count 7.28 K/uL (4.8-10.8)
[2020-11-08 19:51] LABS: INR 4.7 (0.9-1.1); Prothrombin Time 42.1 Seconds (9.0-12.0)
[2020-11-08 19:53] LABS: Alanine Aminotransferase 44 U/L (12-78); Albumin Globulin Ratio 0.8 (0.9-2); Albumin Level 2.8 gm/dl (3.4-5.0); Alkaline Phosphatase 77 U/L (45-117); Aspartate Aminotransferase 27 U/L (15-37); BUN Creatinine Ratio 14.8 (10-20); Bilirubin,Total 0.4 mg/dl (0.2-1); Blood Urea Nitrogen 25 mg/dl (7-18); Carbon Dioxide 31 mmol/L (21-32); Chloride 101 mmol/L (98-107); Creatinine Clr Calc Pharmacy 40.7 ml/min; Est GFR (African American) 37.6; Est GFR (Non-African American) 32.5; Globulin 3.7 gm/dl (2.5-4.0); Glucose 206 mg/dl (70-99); Lipase 102 U/L (73-393); Potassium 3.9 mmol/L (3.5-5.1); Sodium 137 mmol/L (136-145); Total Protein 6.5 gm/dl (6.4-8.2); Troponin I < 0.015 ng/ml (0-0.045)
--- NOTE | 2020-11-08 20:04 | XRay Report ---
XR chest 1V portable HISTORY: 65 years-old Female CHEST PAIN acute atypical chest pain COMPARISON: Chest radiograph and chest CT 11/04/2020 TECHNIQUE: Portable AP view of the chest FINDINGS: Cardiac silhouette is enlarged. Cardiac valve prosthesis. Calcified plaque of the thoracic aorta. The re is no pneumothorax or large pleural effusion. Unchanged blunting of the costophrenic angles. Emphy sema. Chronic lateral herniation of the right midlung. Bilateral reticular opacities appear similar t o comparison. Degenerative changes of the shoulders and spine. IMPRESSION: 1. Cardiomegaly with pulmonary vascular congestion and unchanged reticular opacities suggestive of pu lmonary edema. 2. No pleural effusion. ACT 112: Negative or not required by law. The above report was generated using voice recognition software. It may contain grammatical, syntax o r spelling errors. Electronically signed by: Ye Alva M.D. 11/08/2020 8:02 PM
[2020-11-08] MEDS ORDERED: KETOROLAC TROMETHAMINE 15 MG/ML VIAL IV ONE (22:08)
[2020-11-08] MEDS ORDERED: FUROSEMIDE 40 MG/4 ML VIAL IV STA (22:21)
--- NOTE | 2020-11-08 22:24 | History & Physical Report ---
Date of Service November 08, 2020 Assessment & Plan (1) Chest pain: (2) Palpitation: SOB Fluid Overload. Acute on chronic diastolic CHF Pt is 65 y/o F with PMH DM II, HTN, HLD, hypothyroidism, chronic respiratory failure with hypoxia on 2L O2, DARIUS on CPAP, COPD, paroxysmal atrial fibrillation, venous thrombosis, CKD III< Lynn's esophagus, chronic pain, anemia, tobacco use disorder, h/o mitral valve repair, depression presented to ER with c/o CP, SOB. H/O COVID 10/11/20 CXR: Cardiomegaly with pulmonary vascular congestion and unchanged reticular opacities suggestive of pulmonary edema. EKG without significant change Negative troponin R/O ACS. Risk factors: HTN, HLD, DM, obesity, tobacco use -Tele to monitor for arrhythmias -Will trend troponin -Continue statin, metoprolol, diltiazem -Lasix 40mg IV BID -Monitor I&Os, daily weight, fluid restriction 2L -continue PPI -Cardiology consult Chronic respiratory failure with hypoxia on oxygen 2 liters. COPD Does not appear to be COPD flare -Continue chronic oxygen supplementation -Continue home inhalers H/O COVID-19 diagnosed on 10/11/2020 -Finished steroids Headache right sided OLSON/ear ache Unable to fully visualize TM secondary to cerumen -Debrox drops -Consider full cerumen removal with flushing of ear canal if symptoms continue Paroxysmal atrial fibrillation On Coumadin INR: 4.7 -Hold Coumadin -INR in AM -Continue diltiazem, metoprolol HTN -Continue diltiazem, metoprolol -Hold amlodipine currently and monitor BP while receiving lasix DM II A1c: 8.3 on 10/21/20 -Hold home meds -Basal bolus insulin per protocol CKD III Cr: 1.6. At baseline -Monitor renal functions and avoid nephrotoxic agents when possible Sleep apnea -CPAP at bedtime Anxiety and depression -Continue home meds Chronic pain -Continue fentanyl patch, oxycodone prn GERD -Continue PPI DVT Prophylaxis -On Couamdin Pt was seen and care coordinated with Dr Humphrey. See addendum (3) Headache: History of Present Illness Chief Complaint: SOB, CP Primary Care Provider: Manoj Goins, Pt is 65 y/o F with PMH DM II, HTN, HLD, hypothyroidism, chronic respiratory failure with hypoxia on 2L O2, DARIUS on CPAP, COPD, paroxysmal atrial fibrillation, venous thrombosis, CKD III< Lynn's esophagus, chronic pain, anemia, tobacco use disorder, h/o mitral valve repair, depression presented to ER with c/o CP, SOB. Pt with h/o diagnosed with COVID on 10/11/20. H/O hospitalization10/21/20-10/24/20 for CP and OLSON and had cardiology consult and was thought secondary to underlying illness. Hospitalization 10/25/20-10/30/20 for CP with negative troponin and was thought secondary to GERD. Pt states having int ermittent CP. She is unable to fully describe pain at this time. Feels occurs more with exertion of walking around in house. Reports intermittent palpitations. Sometimes has CP with palpitations but reports mostly palpitations occur without other symptoms. Reports checked pulse at home and was up to 145. Also c/o increased SOB and orthopnea. Reports weight has been up to 225, 229 and feels has increased BLE edema. Cardiology increased Lasix back to 80mg BID and placed pt on 2L fluid restriction and low sodium diet. Cardiolgy increased diltiazem to 180mg daily and started metoprolol succinate 100mg BID. States initially felt like had some improvement but feels worse again. Denies fever/chills. Is off of steroids currently. Has chronic cough and intermittent wheezing that she feels is at baseline. Also c/o right sided OLSON feels around right ear and travels up side of head. Denies any known ear discharge. On Augmentin for possible infection. Denies fever/chills, diaphoresis, N/V/D/C, dizziness, syncope, vision changes, neck pain, sore throat, choking, otalgia, rhinorrhea, abdominal pain, paresthesias, extremity weakness, rashes, urinary symptoms. Allergies Allergy/AdvReac Type Severity Reaction Status Date / Time bee venom protein (honey bee) Allergy Severe SWELLING Verified 10/29/20 20:53 lisinopril Allergy Intermediate FACE Verified 10/29/20 20:53 SWELLING potato Allergy Intermediate BBQ chips Verified 10/29/20 20:53 - facial swelling metronidazole Allergy Mild FACE Verified 10/29/20 20:53 SWELLING strawberry Allergy Mild HIVES Verified 10/29/20 20:53 alprazolam Allergy Unknown RED FACE, Verified 10/29/20 20:53 FACE SWELLING lactose AdvReac Intermediate VOMTING Verified 10/29/20 20:53 DIARRHEA ABDOMINAL PAIN-LACTOSE INTOLERANCE prednisone AdvReac Mild AGGRESSIVE Verified 10/29/20 20:53 BEHAVIOR colesevelam AdvReac Unknown unknown Verified 10/29/20 20:53 lithium AdvReac Unknown jitters Verified 10/29/20 20:53 Home Medications Medication Instructions Recorded Confirmed Type Spiriva with HandiHaler 1 cap INHALATION QAM 06/19/18 11/08/20 History atorvastatin 40 mg PO HS 06/19/18 11/08/20 History cetirizine 10 mg PO HS 06/19/18 11/08/20 History cholecalciferol (vitamin D3) 1,000 unit PO QAM 06/19/18 11/08/20 History [Vitamin D3] docusate sodium 100 mg PO BID 06/19/18 11/08/20 History epinephrine [EpiPen] 0.3 mg IM DIRECTED PRN 06/19/18 11/08/20 History fentanyl 50 mcg TRANSDERMAL [id number] 06/19/18 11/08/20 History methocarbamol 750 mg PO TID 06/19/18 11/08/20 History multivitamin 1 tab PO QAM 06/19/18 11/08/20 History ondansetron 8 mg PO BID PRN 06/19/18 11/08/20 History venlafaxine 150 mg PO QAM 06/19/18 11/08/20 History warfarin 5 mg PO [id number] 06/19/18 11/08/20 History trazodone 200 mg PO HS 09/14/18 11/08/20 History venlafaxine 75 mg PO QAM 09/14/18 11/08/20 History zolpidem 5 mg PO HS 09/14/18 11/08/20 History gabapentin 800 mg PO BID 05/28/19 11/08/20 History alendronate 70 mg tablet 70 mg PO WK tab 06/10/19 11/08/20 History warfarin 7.5 mg PO WK 09/19/19 11/08/20 History Lantus U-100 Insulin 18 unit SUBCUT BID 03/02/20 11/08/20 History potassium chloride 40 meq PO TID 03/02/20 11/08/20 History albuterol sulfate [Proventil HFA] 2 puffs INH Q6H PRN 03/24/20 11/08/20 History levalbuterol HCl 1.25 mg INHALATION Q4H PRN 03/24/20 11/08/20 History amlodipine 5 mg PO QAM 05/15/20 11/08/20 History nitroglycerin [Nitrostat] 0.4 mg SUBLINGUAL DIRECTED PRN 07/02/20 11/08/20 History oxycodone 10 mg PO Q6H PRN 07/02/20 11/08/20 History fluticasone propion-salmeterol 1 inh INHALATION BID 08/01/20 11/08/20 History [Advair Diskus] calcitriol 0.25 mcg PO DIRECTED 10/21/20 11/08/20 History diltiazem HCl 180 mg PO QAM 30 Days #30 cap 10/24/20 11/08/20 Rx amoxicillin-pot clavulanate 1 tab PO BID #14 tab 11/04/20 11/08/20 Rx [Augmentin] Al hyd-Mg tr-alg ac-sod bicarb 1 tab PO TID PRN 11/08/20 11/08/20 History [Gaviscon] acetaminophen 500 mg PO Q6H PRN 11/08/20 11/08/20 History amitriptyline 50 mg PO HS 11/08/20 11/08/20 History benzonatate 100 mg PO TID PRN 11/08/20 11/08/20 History furosemide 80 mg PO BID 11/08/20 11/08/20 History levalbuterol tartrate [Xopenex HFA] 1 puff INHALATION Q4H PRN 11/08/20 11/08/20 History melatonin 10 mg PO HS 11/08/20 11/08/20 History metoprolol succinate 100 mg PO BID 11/08/20 11/08/20 History pantoprazole 40 mg PO BID 11/08/20 11/08/20 History polyethylene glycol 3350 17 g PO DAILY 11/08/20 11/08/20 History prednisone See Rx Instructions .ROUTE 11/08/20 11/08/20 History .COMPLEX PRN prochlorperazine maleate 10 mg PO Q6H PRN 11/08/20 11/08/20 History [Compazine] Past Med/Surg History Medical History Anxiety Asthma 3LPM via n/c mostly continuous (although patient states she does not wear this all the time) Atrial fibrillation a. fib/a. flutter s/p cardioversion (2016) Lynn esophagus Bipolar disorder Chronic back pain Chronic cor pulmonale Chronic kidney disease stage III Chronic obstructive pulmonary disease 3LPM via n/c mostly continuous (although patient states she does not wear this all the time) COVID-19 virus detected + 10/11/20 CVA (cerebral vascular accident) 2004 (per records; patient denies) Degeneration of cervical intervertebral disc Depression Diastolic CHF, chronic DM type 2 (diabetes mellitus, type 2) Fibromyalgia Gastroparesis GERD (gastroesophageal reflux disease) History of cardioversion History of Clostridium difficile infection History of DVT (deep vein thrombosis) left "hand" 2004- on AC HTN (hypertension) Hyperlipidemia Hypothyroidism no current medication per doctor orders. 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 Obesity Obstructive sleep apnea treated with BiPAP cpap night Osteoarthritis Peripheral neuropathy Post traumatic stress disorder Surgical History History of adenoidectomy History of appendectomy LAPAROSCOPY History of cardiac cath 2004= no stents History of carpal tunnel release left History of cataract surgery BILATERAL History of cholecystectomy LAPAROSCOPY History of colonoscopy History of esophagogastroduodenoscopy (EGD) History of hysterectomy EMIGDIO WITH BSO History of mitral valve repair 2004 + resection fibroelastoma History of tonsillectomy Hx of lumpectomy right breast BENIGN Hx of tubal ligation Hx of umbilical hernia repair S/P trigger finger release RIGHT/LEFT Family History Mother Family history of diabetes mellitus Sister Family history of diabetes mellitus Ulcerative colitis Social History Smoking Status: Current every day smoker Tobacco Type: Cigarettes Cigarettes Per Day: 10; Second Hand Exposure: Yes; Hx Alcohol Use: No Hx Substance Use: No Preferred Language: Egyptian Communication Ability: Effective Visual Impairment: No Limitations Medical Affairs Director Required: No Beliefs That Will Affect Care: None marital status: / Current Living Situation: Alone Current Living Situation Comment: APARTMENT Feels Safe at Home: Yes Assistive Devices: Walker Review of Systems Review of Systems: All systems reviewed & are unremarkable except as noted in HPI & below Physical Exam Physical Exam: General: no distress, obese Head: normocephalic, atraumatic Eyes: PERRL, EOM's intact, conjunctiva non-injected, anicteric ENT: normal inspection external ears, bilateral ear canals with cerumen, unable to fully visualize TM's, nose, mucous membranes moist; no temporal region tenderness to palpation Neck: supple, trachea midline Lungs:diminished breath sounds throughout CV: RRR, no murmur, 2+ pretibial edema Abd: normal BS, protuberant, soft, non-tender Ext: no cyanosis, no calf tenderness Neuro: A&O x 3, no focal deficits noted, normal affect Skin: warm, dry Results & Data Results & Data ([facility]) Vital Signs (Past 12 Hours) Vital Signs Temp Pulse Resp BP Pulse Ox 11/08/20 21:22 101 H 16 131/101 H 95 11/08/20 21:00 21 95 11/08/20 19:47 96 H 17 128/58 L 95 11/08/20 18:58 98 H 97 11/08/20 18:48 36.7 C 99 H 18 139/86 97 11/08/20 18:43 105 H 21 139/86 98 Laboratory Results Short CBC 11/08/20 Range/Units 19:20 WBC 7.28 (4.8-10.8) K/uL Hgb 11.8 L (12.0-16.0) g/dL Hct 35.8 L (37-47) % Plt Count 277 (130-400) K/uL BMP 11/08/20 19:20 Sodium 137 Potassium 3.9 Chloride 101 Carbon Dioxide 31 BUN 25 H Creatinine 1.65 H Glucose 206 H Calcium 9.0 Cardiac Enzymes 11/08/20 Range/Units 19:20 Troponin I < 0.015 (0-0.045) ng/ml Liver Function 11/08/20 Range/Units 19:20 Total Bilirubin 0.4 (0.2-1) mg/dl AST 27 (15-37) U/L ALT 44 (12-78) U/L Alkaline Phosphatase 77 (45-117) U/L Albumin 2.8 L (3.4-5.0) gm/dl Diagnostic Findings CXR: IMPRESSION: 1. Cardiomegaly with pulmonary vascular congestion and unchanged reticular opacities suggestive of pulmonary edema. 2. No pleural effusion. Code Status & VTE Plan VTE Prophylaxis Plan VTE Prophylaxis will be ordered: Yes Supervising Physician Co-Signing Physician Notes I have seen and examined the patient and have discussed the case with the provider above. I agree with the assessment and plan as stated with the following exceptions. Ms. Minaya is deconditioned generally from multiple recent hospitalizations including two in the last month at this hospital. It is difficult to gauge her baseline weight or functional status. She reports walking around her house but that outside of her house she is wheelchair bound. She reports worsening shortness of breath generally and functional decline. She has chronic orthopnea and reports weight gain. She received Lasix 40mg IV in the ER after a culp was placed with 1200cc output within the first hour, and she reports improvement in her breathing already. She denies any worsening or changes in her chronic cough and no sputum production that is changed. She is chronically on oxygen supplementation and is at her baseline. She has CKD Stage 3 and she is at her baseline renal function. Exam reveals a morbidly obese, pleasant female in no acute distress. She has coarse rhonchi throughout all lung mills without wheezing. Heart exam reveals S1/2 hears with irregular rhythm and normal rate. Extremities are warm and well perfused with trace edema in bilateral lower extremities. Abdomen is protuberant, soft and nondistended. CXR reveals pulmonary edema consistent with a CHF exacerbation. Suspect this with worsening symptoms mentioned above. Responding well to diuresis. Cardiology consulted to help with optimizing volume. Cont Lasix 40 IV BID and titrate as needed. h/o atrial fibrillation with recent supratherapetic INR. WARFARIN HELD ON ADMISSION, PLEASE RESTART WHEN INR <3.5. DO [facility] (1) Headache Headache chronicity pattern: unspecified pattern Headache type: unspecified Intractability: not intractable Qualified Code(s): R51.9 - Headache, unspecified
[2020-11-09] MEDS ORDERED: LEVALBUTEROL TARTRATE 15 GM HFA.AER.AD INH PRN (00:57)
[2020-11-09] MEDS ORDERED: ALUM HYDROX/MAG TRISILICATE CHEW PO PRN (00:57)
[2020-11-09] MEDS ORDERED: GLUCAGON FOR INJ 1 MG VIAL SQ PRN (00:57)
[2020-11-09] MEDS ORDERED: GLUCOSE 40% GEL 15 GM TUBE PO PRN (00:57)
[2020-11-09] MEDS ORDERED: GLUCOSE 10 TABS/TUBE PO PRN (00:57)
[2020-11-09] MEDS ORDERED: ACETAMINOPHEN HOME PACK 500 MG TABLET PO PRN (00:57)
[2020-11-09] MEDS ORDERED: NITROGLYCERIN SL 0.4 MG/TAB TAB SL PRN (00:57)
[2020-11-09] MEDS ORDERED: DEXTROSE 50% 50 ML SYRINGE IV PRN (00:57)
[2020-11-09] MEDS ORDERED: POLYETHYLENE (MIRALAX) 17 GM PACK PO PRN (00:57)
[2020-11-09] MEDS: CHECK fentaNYL PATCH PLACEMENT SCH ×4 (01:31→23:34)
[2020-11-09] MEDS: INSULIN ASPART 100 UNITS/ML 3 ML PEN SC SCH ×6 (02:12→20:39)
[2020-11-09] MEDS: CARBAMIDE PEROXIDE 6.5% 15 ML BTL OT SCH ×3 (02:12→20:42)
[2020-11-09] MEDS: INSULIN GLARGINE SOLOSTAR 100 UNITS/ML 3 ML PEN SC SCH ×3 (02:12→20:40)
[2020-11-09 07:36] LABS: Hematocrit (blood only) 37.9 % (37-47); Hemoglobin 12.8 g/dL (12.0-16.0); Mean Corpuscular Hemoglobin 30.6 pg (25-34); Mean Corpuscular Hgb Conc 33.8 g/dL (32-36); Mean Corpuscular Volume 90.7 fL (80-100); Mean Platelet Volume 9.4 fL (7.4-10.4); Platelet Count 292 K/uL (130-400); RDW Coefficient of Variation 15.4 % (11.5-14.5); RDW Standard Deviation 50.2 fL (36.4-46.3); Red Blood Count 4.18 M/uL (4.2-5.4); White Blood Count 6.09 K/uL (4.8-10.8)
[2020-11-09 08:00] LABS: INR 4.2 (0.9-1.1); Prothrombin Time 38.2 Seconds (9.0-12.0)
[2020-11-09 08:04] LABS: Calcium 9.3 mg/dl (8.5-10.1); Creatinine Clr Calc Pharmacy 43.4 ml/min; Est GFR (African American) 42.6; Est GFR (Non-African American) 36.7; Potassium 3.8 mmol/L (3.5-5.1)
[2020-11-09] MEDS ORDERED: fentaNYL 50 MCG/HR TDSY TD SCH (09:00)
[2020-11-09] MEDS ORDERED: FUROSEMIDE 40 MG/4 ML VIAL IV SCH (09:00)
[2020-11-09] MEDS: LEVALBUTEROL HCL 1.25 MG/3 ML NEB INH PRN ×2 (09:13→19:47)
[2020-11-09] MEDS: oxyCODONE HCL IR 5 MG TAB (IMMEDIATE RELEASE) PO PRN ×2 (09:31→16:33)
[2020-11-09] MEDS: FUROSEMIDE 40 MG in SYRINGE 0 ML IV SCH ×2 (09:31→16:29)
[2020-11-09] MEDS: METOPROLOL SUCC 50MG EXT REL TAB PO SCH ×2 (09:32→20:44)
[2020-11-09] MEDS: PANTOprazole 40 MG TAB PO SCH ×2 (09:32→20:44)
[2020-11-09] MEDS: MULTIVITAMIN TAB PO SCH (09:32)
[2020-11-09] MEDS: dilTIAZem HCL 180 MG CAPCR PO SCH (09:32)
[2020-11-09] MEDS: METHOCARBAMOL 750 MG TABLET PO SCH ×3 (09:32→20:44)
[2020-11-09] MEDS: VENLAFAXINE HCL XR 150 MG CAPXR PO SCH (09:33)
[2020-11-09] MEDS: GABAPENTIN 800 MG TAB PO SCH ×2 (09:33→20:43)
[2020-11-09] MEDS: DOCUSATE SODIUM 100 MG CAP PO SCH ×2 (09:33→20:41)
[2020-11-09] MEDS: CHOLECALCIFEROL 1,000 UNITS 25 MCG TAB PO SCH (09:33)
[2020-11-09] MEDS: POLYETHYLENE (MIRALAX) 17 GM PACK PO SCH (09:33)
[2020-11-09] MEDS: VENLAFAXINE HCL XR 75 MG CAPXR PO SCH (09:33)
[2020-11-09] MEDS: POTASSIUM CHLORIDE CRTAB 20 MEQ TABCR PO SCH ×3 (09:33→20:43)
--- NOTE | 2020-11-09 09:42 | Cardiology Consultation ---
Date of Consultation November 09, 2020 Assessment & Plan (1) Atypical chest pain: (2) Headache: (3) Chronic respiratory failure: (4) COVID-19: (5) COPD exacerbation: (6) Chest pain: (7) Headache: (8) Atrial flutter: In the past, the patient has not been able to take antiarrhythmic med ications due to psychiatric medications and QT prolongation. Therefore, I think the best option for her currently is to continue with rate control of her atrial flutter and continued anticoagulation. Patient is on IV Lasix which I agree with as she may have some diastolic dysfunction. I truly believe she needs good treatment of her COPD especially post Covid. History of Present Illness Attending Physician: Abdelrahman Moreau MD History of Present Illness This is a 65-year-old complex female medical patient with the history as outlined below. She has a history of mitral valve repair in 2004, atrial flutter ablation in 2016, severe COPD which is oxygen dependent and associated with severe pulmonary hypertension, diabetes with gastroparesis and stage III kidney disease. At the end of September she was diagnosed with Covid and spent several days in the hospital before being discharged. She has been readmitted to the hospital on 2 additional occasions over the past several weeks with symptoms of shortness of breath, chest pain and heart palpitations all of which have been treated conservatively. Earlier this week she called the answering service with increased symptoms of shortness of breath and heart palpitations for which I told her to go to the emergency department. She waited several more days and then last evening she became short of breath with heart palpitations and chest pain and decided to come into the hospital where she has been admitted again. Her cardiac markers are negative. On the telemetry she is in a rate controlled atrial flutter. She has been anticoagulated on warfarin with an elevated INR on admission. EKG shows atrial flutter with a right bundle branch block which is old. 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 3.Symptomatic atrial flutter observed initially in February 2013, status post 03/16/2013 and 10/20/2018, July 04 2020 cardioversions. 4.May 02, [address] Masterson, successful ablation of the tricuspid valve to inferior vena caval isthmus with bidirectional block and termination of atrial flutter. Post ablation electrophysiologic study showed dual pathways with echo beats, no inducible SVT however extensive induction was not attempted 5.Coumadin prescribed secondary to the paroxysmal atrial flutter, CHADS2 Score of 5 out of 6 (CHF, HTN, DM, CVA), Lambl's Excrescences, history of DVT, and the mitral valve disease. 6.Increased risk candidate for antiarrhythmic therapy due to QT prolongation from her psych medications. 7.Severe chronic obstructive lung disease, advanced emphysema, chronic hypoxemia with supplemental oxygen therapy 2 L nasal can. Ongoing tobacco abuse 8.Severe pulmonary hypertension 9.Chronic right heart failure, cor pulmonale physiology 10.Obstructive sleep apnea, on CPAP therapy. 11.Anemia 12.Hypertension 13.Hyperlipidemia 14.Type II diabetes mellitus with gastroparesis 15.Stage III chronic kidney disease Allergies Allergy/AdvReac Type Severity Reaction Status Date / Time bee venom protein (honey bee) Allergy Severe SWELLING Verified 10/29/20 20:53 lisinopril Allergy Intermediate FACE Verified 10/29/20 20:53 SWELLING potato Allergy Intermediate BBQ chips Verified 10/29/20 20:53 - facial swelling metronidazole Allergy Mild FACE Verified 10/29/20 20:53 SWELLING strawberry Allergy Mild HIVES Verified 10/29/20 20:53 alprazolam Allergy Unknown RED FACE, Verified 10/29/20 20:53 FACE SWELLING lactose AdvReac Intermediate VOMTING Verified 10/29/20 20:53 DIARRHEA ABDOMINAL PAIN-LACTOSE INTOLERANCE prednisone AdvReac Mild AGGRESSIVE Verified 10/29/20 20:53 BEHAVIOR colesevelam AdvReac Unknown unknown Verified 10/29/20 20:53 lithium AdvReac Unknown jitters Verified 10/29/20 20:53 Home Medications Medication Instructions Recorded Confirmed Type Spiriva with HandiHaler 1 cap INHALATION [facility] 06/19/18 11/08/20 History atorvastatin 40 mg PO HS 06/19/18 11/08/20 History cetirizine 10 mg PO HS 06/19/18 11/08/20 History cholecalciferol (vitamin D3) 1,000 unit PO QA 06/19/18 11/08/20 History [Vitamin D3] docusate sodium 100 mg PO BID 06/19/18 11/08/20 History epinephrine [EpiPen] 0.3 mg IM DIRECTED PRN 06/19/18 11/08/20 History fentanyl 50 mcg TRANSDERMAL [id number] 06/19/18 11/08/20 History methocarbamol 750 mg PO TID 06/19/18 11/08/20 History multivitamin 1 tab PO QAM 06/19/18 11/08/20 History ondansetron 8 mg PO BID PRN 06/19/18 11/08/20 History venlafaxine 150 mg PO QAM 06/19/18 11/08/20 History warfarin 5 mg PO [id number] 06/19/18 11/08/20 History trazodone 200 mg PO HS 09/14/18 11/08/20 History venlafaxine 75 mg PO QAM 09/14/18 11/08/20 History zolpidem 5 mg PO HS 09/14/18 11/08/20 History gabapentin 800 mg PO BID 05/28/19 11/08/20 History alendronate 70 mg tablet 70 mg PO WK tab 06/10/19 11/08/20 History warfarin 7.5 mg PO WK 09/19/19 11/08/20 History Lantus U-100 Insulin 18 unit SUBCUT BID 03/02/20 11/08/20 History potassium chloride 40 meq PO TID 03/02/20 11/08/20 History albuterol sulfate [Proventil HFA] 2 puffs INH Q6H PRN 03/24/20 11/08/20 History levalbuterol HCl 1.25 mg INHALATION Q4H PRN 03/24/20 11/08/20 History amlodipine 5 mg PO QAM 05/15/20 11/08/20 History nitroglycerin [Nitrostat] 0.4 mg SUBLINGUAL DIRECTED PRN 07/02/20 11/08/20 History oxycodone 10 mg PO Q6H PRN 07/02/20 11/08/20 History fluticasone propion-salmeterol 1 inh INHALATION BID 08/01/20 11/08/20 History [Advair Diskus] calcitriol 0.25 mcg PO DIRECTED 10/21/20 11/08/20 History diltiazem HCl 180 mg PO QAM 30 Days #30 cap 10/24/20 11/08/20 Rx amoxicillin-pot clavulanate 1 tab PO BID #14 tab 11/04/20 11/08/20 Rx [Augmentin] Al hyd-Mg tr-alg ac-sod bicarb 1 tab PO TID PRN 11/08/20 11/08/20 History [Gaviscon] acetaminophen 500 mg PO Q6H PRN 11/08/20 11/08/20 History amitriptyline 50 mg PO HS 11/08/20 11/08/20 History benzonatate 100 mg PO TID PRN 11/08/20 11/08/20 History furosemide 80 mg PO BID 11/08/20 11/08/20 History levalbuterol tartrate [Xopenex HFA] 1 puff INHALATION Q4H PRN 11/08/20 11/08/20 History melatonin 10 mg PO HS 11/08/20 11/08/20 History metoprolol succinate 100 mg PO BID 11/08/20 11/08/20 History pantoprazole 40 mg PO BID 11/08/20 11/08/20 History polyethylene glycol 3350 17 g PO DAILY 11/08/20 11/08/20 History prednisone See Rx Instructions .ROUTE 11/08/20 11/08/20 History .COMPLEX PRN prochlorperazine maleate 10 mg PO Q6H PRN 11/08/20 11/08/20 History [Compazine] Patient History Medical History Anxiety Asthma 3LPM via n/c mostly continuous (although patient states she does not wear this all the time) Atrial fibrillation a. fib/a. flutter s/p cardioversion (2017) Lynn esophagus Bipolar disorder Chronic back pain Chronic cor pulmonale Chronic kidney disease stage III Chronic obstructive pulmonary disease 3LPM via n/c mostly continuous (although patient states she does not wear this all the time) COVID-19 virus detected + 10/11/20 CVA (cerebral vascular accident) 2004 (per records; patient denies) Degeneration of cervical intervertebral disc Depression Diastolic CHF, chronic DM type 2 (diabetes mellitus, type 2) Fibromyalgia Gastroparesis GERD (gastroesophageal reflux disease) History of cardioversion History of Clostridium difficile infection History of DVT (deep vein thrombosis) left "hand" 2004- on AC HTN (hypertension) Hyperlipidemia Hypothyroidism no current medication per doctor orders. 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 Obesity Obstructive sleep apnea treated with BiPAP cpap night Osteoarthritis Peripheral neuropathy Post traumatic stress disorder Surgical History History of adenoidectomy History of appendectomy LAPAROSCOPY History of cardiac cath 2004= no stents History of carpal tunnel release left History of cataract surgery BILATERAL History of cholecystectomy LAPAROSCOPY History of colonoscopy History of esophagogastroduodenoscopy (EGD) History of hysterectomy EMIGDIO WITH BSO History of mitral valve repair 2004 + resection fibroelastoma History of tonsillectomy Hx of lumpectomy right breast BENIGN Hx of tubal ligation Hx of umbilical hernia repair S/P trigger finger release RIGHT/LEFT Family History Mother Family history of diabetes mellitus Sister Family history of diabetes mellitus Ulcerative colitis Social History Smoking Status: Current every day smoker Tobacco Type: Cigarettes Cigarettes Per Day: 10; Second Hand Exposure: Yes; Hx Alcohol Use: No Hx Substance Use: No Preferred Language: Israeli Communication Ability: Effective Visual Impairment: No 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 Physical Exam Physical Exam: General: no acute distress and stated age Head: normocephalic, no masses, lesions, tenderness or abnormalities Eyes: conjunctiva are pink and non-injected, sclera clear Neck: supple, no adenopathy, no bruits, normal jugular venous pulse, no hepatojugular reflux Chest: normal shape and normal respiratory effort Lungs: clear to auscultation and percussion Cardiac Exam: - irregular rate & rhythm, no murmurs gallops or rubs - normal S1, normal S2 Pulses: 2(+) throughout Abdomen: abdomen soft, non-tender, no abnormal masses and no hepatosplenomegaly Musculoskeletal: no gait disturbance, no joint inflammation, no deforming arthritis Extremities: no edema and no cyanosis Neuro: grossly normal exam Results & Data ([facility]) Vital Signs (Past 12 Hours) Vital Signs Temp Pulse Pulse Resp BP BP BP 11/09/20 09:14 102 H 20 11/09/20 07:21 36.6 C 99 H 20 122/64 11/09/20 03:53 36.5 C 85 18 135/77 11/09/20 01:04 36.7 C 80 20 115/78 11/09/20 00:00 85 15 121/78 11/08/20 23:01 100 H 17 114/92 11/08/20 22:00 96 H 16 110/87 Pulse Ox 11/09/20 09:14 97 11/09/20 07:21 97 11/09/20 03:53 96 11/09/20 01:04 97 11/09/20 00:00 97 11/08/20 23:01 95 11/08/20 22:00 95 Laboratory Results Laboratory Results - last 24 hr 11/08/20 11/08/20 11/08/20 19:20 19:20 19:20 WBC 7.28 RBC 3.97 L Hgb 11.8 L Hct 35.8 L MCV 90.2 MCH 29.7 MCHC 33.0 RDW Std Deviation 48.4 H RDW Coeff of King 15.0 H Plt Count 277 MPV 9.4 Immature Gran % (Auto) 0.3 Neut % (Auto) 75.4 Lymph % (Auto) 13.9 [place] % (Auto) 8.0 Eos % (Auto) 2.3 Baso % (Auto) 0.1 Neut # (Auto) 5.49 Lymph # (Auto) 1.01 L [place] # (Auto) 0.58 Eos # (Auto) 0.17 Baso # (Auto) 0.01 Immature Gran # (Auto) 0.02 PT 42.1 H INR 4.7 H Sodium 137 Potassium 3.9 Chloride 101 Carbon Dioxide 31 Anion Gap 4.0 BUN 25 H Creatinine 1.65 H Est Cr Clr Drug Dosing 40.7 Est GFR ( Amer) 37.6 Est GFR (Non-Af Amer) 32.5 BUN/Creatinine Ratio 14.8 Glucose 206 H POC Glucose Calcium 9.0 Magnesium 2.0 Total Bilirubin 0.4 AST 27 ALT 44 Alkaline Phosphatase 77 Troponin I < 0.015 Total Protein 6.5 Albumin 2.8 L Globulin 3.7 Albumin/Globulin Ratio 0.8 L Lipase 102 COVID-19 Eval Order SARS-CoV-2, RNA, NAAT 11/08/20 11/08/20 11/09/20 22:37 22:37 00:55 WBC RBC Hgb Hct MCV MCH MCHC RDW Std Deviation RDW Coeff of King Plt Count MPV Immature Gran % (Auto) Neut % (Auto) Lymph % (Auto) [place] % (Auto) Eos % (Auto) Baso % (Auto) Neut # (Auto) Lymph # (Auto) [place] # (Auto) Eos # (Auto) Baso # (Auto) Immature Gran # (Auto) PT INR Sodium Potassium Chloride Carbon Dioxide Anion Gap BUN Creatinine Est Cr Clr Drug Dosing Est GFR ( Amer) Est GFR (Non-Af Amer) BUN/Creatinine Ratio Glucose POC Glucose 238 H Calcium Magnesium Total Bilirubin AST ALT Alkaline Phosphatase Troponin I Total Protein Albumin Globulin Albumin/Globulin Ratio Lipase COVID-19 Eval Order Covid19 [facility] SARS-CoV-2, RNA, NAAT NEGATIVE 11/09/20 11/09/20 11/09/20 01:19 07:10 07:10 WBC 6.09 RBC 4.18 L Hgb 12.8 Hct 37.9 MCV 90.7 MCH 30.6 MCHC 33.8 RDW Std Deviation 50.2 H RDW Coeff of King 15.4 H Plt Count 292 MPV 9.4 Immature Gran % (Auto) Neut % (Auto) Lymph % (Auto) [place] % (Auto) Eos % (Auto) Baso % (Auto) Neut # (Auto) Lymph # (Auto) [place] # (Auto) Eos # (Auto) Baso # (Auto) Immature Gran # (Auto) PT INR Sodium 142 Potassium 3.8 Chloride 105 Carbon Dioxide 35 H Anion Gap 2.0 L BUN 25 H Creatinine 1.49 H Est Cr Clr Drug Dosing 43.4 Est GFR ( Amer) 42.6 Est GFR (Non-Af Amer) 36.7 BUN/Creatinine Ratio 17.0 Glucose 92 POC Glucose Calcium 9.3 Magnesium Total Bilirubin AST ALT Alkaline Phosphatase Troponin I 0.015 Total Protein Albumin Globulin Albumin/Globulin Ratio Lipase COVID-19 Eval Order SARS-CoV-2, RNA, NAAT 11/09/20 11/09/20 11/09/20 07:10 07:10 07:16 WBC RBC Hgb Hct MCV MCH MCHC RDW Std Deviation RDW Coeff of King Plt Count MPV Immature Gran % (Auto) Neut % (Auto) Lymph % (Auto) [place] % (Auto) Eos % (Auto) Baso % (Auto) Neut # (Auto) Lymph # (Auto) [place] # (Auto) Eos # (Auto) Baso # (Auto) Immature Gran # (Auto) PT 38.2 H INR 4.2 H Sodium Potassium Chloride Carbon Dioxide Anion Gap BUN Creatinine Est Cr Clr Drug Dosing Est GFR ( Amer) Est GFR (Non-Af Amer) BUN/Creatinine Ratio Glucose POC Glucose 104 H Calcium Magnesium Total Bilirubin AST ALT Alkaline Phosphatase Troponin I < 0.015 Total Protein Albumin Globulin Albumin/Globulin Ratio Lipase COVID-19 Eval Order SARS-CoV-2, RNA, NAAT Medications Administered Current Inpatient Medications Acetaminophen (Acetaminophen 325 Mg Tab) 650 mg PO Q4H PRN PRN Reason: Pain or Fever Stop: 12/09/20 00:56 Al Hydroxide/Mg Trisilicate (Alum Hydrox/Mag Trisilicate Chew) 1 tab PO TID PRN PRN Reason: Reflux Stop: 12/09/20 00:56 Amitriptyline HCl (Amitriptyline Hcl 50 Mg Tab) 50 mg PO HS JORGE Stop: 12/09/20 20:59 Atorvastatin Calcium (Atorvastatin 40 Mg Tab) 40 mg PO HS JORGE Stop: 12/09/20 20:59 Calcitriol (Calcitriol 0.25 Mcg Capsule) 0.25 mcg PO [id number] JORGE Stop: 12/10/20 08:59 Carbamide Peroxide (Carbamide Peroxide 6.5% 15 Ml Btl) 5 drops OT BID JORGE Stop: 11/13/20 00:56 Last Admin: 11/09/20 09:34 Dose: 5 drops Documented by: Cetirizine HCl (Cetirizine Hcl 10 Mg Tablet) 10 mg PO HS JORGE Stop: 12/09/20 20:59 Dextrose (Dextrose 50% 50 Ml Syringe) 25 - 50 ml IV UD PRN; Protocol PRN Reason: Hypoglycemia Protocol Stop: 12/09/20 00:56 Diltiazem HCl (Diltiazem Hcl 180 Mg Capcr) 180 mg PO QAM [facility] Stop: 12/09/20 08:59 Last Admin: 11/09/20 09:32 Dose: 180 mg Documented by: Docusate Sodium (Docusate Sodium 100 Mg Cap) 100 mg PO BID [facility] Stop: 12/09/20 08:59 Last Admin: 11/09/20 09:33 Dose: 100 mg Documented by: Fentanyl (Fentanyl 50 Mcg/Hr Tdsy) 50 mcg TD Q72H JORGE Stop: 11/25/20 12:59 Fluticasone/Vilanterol (Fluticasone/Vilanterol 200/25mcg 14 Puffs/Inhaler) 1 puffs INH DAILY JORGE Stop: 12/09/20 08:59 Gabapentin (Gabapentin 800 Mg Tab) 800 mg PO BID JORGE Stop: 12/09/20 08:59 Last Admin: 11/09/20 09:33 Dose: 800 mg Documented by: Glucagon (Glucagon For Inj 1 Mg Vial) 1 mg SQ UD PRN; Protocol PRN Reason: Hypoglycemia Protocol Stop: 12/09/20 00:56 Glucose (Glucose 10 Tabs/Tube) 4 - 8 tabs PO UD PRN; Protocol PRN Reason: Hypoglycemia Protocol Stop: 12/09/20 00:56 Glucose (Glucose 40% Gel 15 Gm Tube) 15 - 30 gm PO UD PRN; Protocol PRN Reason: Hypoglycemia Protocol Stop: 12/09/20 00:56 Furosemide 40 mg/ Syringe 4 mls @ 4 mls/min IV [id number] JORGE Stop: 12/09/20 08:59 Last Admin: 11/09/20 09:31 Dose: 4 mls/min Documented by: Insulin Aspart (Insulin Aspart 100 Units/Ml 3 Ml Pen) 0 units SC ACHS JORGE Stop: 12/09/20 01:29 Last Admin: 11/09/20 09:35 Dose: 5 units Documented by: Insulin Glargine (Insulin Glargine Solostar 100 Units/Ml 3 Ml Pen) 10 units SC BID [facility] Stop: 12/09/20 01:29 Last Admin: 11/09/20 02:12 Dose: 10 units Documented by: Levalbuterol HCl (Levalbuterol Tartrate 15 Gm Hfa.Aer.Ad) 1 puffs INH Q4H PRN PRN Reason: Wheezing Stop: 12/09/20 00:56 Levalbuterol HCl (Levalbuterol Hcl 1.25 Mg/3 Ml Neb) 1.25 mg INH Q4H PRN PRN Reason: Wheezing Stop: 12/09/20 00:56 Last Admin: 11/09/20 09:13 Dose: 1.25 mg Documented by: Melatonin (Melatonin 3 Mg Tab) 9 mg PO HS [facility] Stop: 12/09/20 20:59 Methocarbamol (Methocarbamol 750 Mg Tablet) 750 mg PO TID JORGE Stop: 12/09/20 08:59 Last Admin: 11/09/20 09:32 Dose: 750 mg Documented by: Metoprolol Succinate (Metoprolol Succ 50mg Ext Rel Tab) 100 mg PO BID [facility] Stop: 12/09/20 08:59 Last Admin: 11/09/20 09:32 Dose: 100 mg Documented by: Miscellaneous (Carbohydrates For Hypoglycemia ) 15 - 30 gm PO UD PRN PRN Reason: Hypoglycemia Protocol Stop: 12/09/20 00:56 Miscellaneous (Check Fentanyl Patch Placement) 1 ea N/A QS [facility] Stop: 12/09/20 00:56 Last Admin: 11/09/20 08:51 Dose: 1 ea Documented by: Miscellaneous (Fentanyl Patch Remove & Waste) 1 ea N/A Q72H [facility] Stop: 12/11/20 12:58 Miscellaneous (Remove Nicoderm Patch) 1 ea N/A DAILY@[id number] [facility] Stop: 12/10/20 08:58 Multivitamins (Multivitamin Tab) 1 tab PO QAM [facility] Stop: 12/09/20 08:59 Last Admin: 11/09/20 09:32 Dose: 1 tab Documented by: Nicotine (Nicotine 14 Mg/24 Hr Patch) 14 mg TD QAM [facility] Stop: 12/09/20 10:29 Nitroglycerin (Nitroglycerin Sl 0.4 Mg/Tab Tab) 0.4 mg SL UD PRN PRN Reason: Chest Pain Stop: 12/09/20 00:56 Oxycodone HCl (Oxycodone Hcl Ir 5 Mg Tab (Immediate Release)) 10 mg PO Q6H PRN PRN Reason: Pain Stop: 11/23/20 00:56 Last Admin: 11/09/20 09:31 Dose: 10 mg Documented by: Pantoprazole Sodium (Pantoprazole 40 Mg Tab) 40 mg PO BID JORGE Stop: 12/09/20 08:59 Last Admin: 11/09/20 09:32 Dose: 40 mg Documented by: Polyethylene Glycol (Polyethylene (Miralax) 17 Gm Pack) 17 gm PO DAILY PRN PRN Reason: Constipation Stop: 12/09/20 00:56 Polyethylene Glycol (Polyethylene (Miralax) 17 Gm Pack) 17 gm PO DAILY JORGE Stop: 12/09/20 08:59 Last Admin: 11/09/20 09:33 Dose: Not Given Documented by: Potassium Chloride (Potassium Chloride Crtab 20 Meq Tabcr) 40 meq PO TID [facility] Stop: 12/09/20 08:59 Last Admin: 11/09/20 09:33 Dose: 40 meq Documented by: Trazodone HCl (Trazodone Hcl 100 Mg Tab) 200 mg PO [facility] Stop: 12/09/20 20:59 Umeclidinium Heath (Umeclidinium [place] 62.5mcg/Blister 7 Puffs/Inhaler) 1 puffs INH QAM [facility] Stop: 12/09/20 08:59 Venlafaxine HCl (Venlafaxine Hcl Xr 150 Mg Capxr) 150 mg PO QAM [facility] Stop: 12/09/20 08:59 Last Admin: 11/09/20 09:33 Dose: 150 mg Documented by: Venlafaxine HCl (Venlafaxine Hcl Xr 75 Mg Capxr) 75 mg PO QAM [facility] Stop: 12/09/20 08:59 Last Admin: 11/09/20 09:33 Dose: 75 mg Documented by: Vitamin D (Cholecalciferol 1,000 Units 25 Mcg Tab) 1,000 units PO QAM [facility] Stop: 12/09/20 08:59 Last Admin: 11/09/20 09:33 Dose: 1,000 units Documented by: Zolpidem Tartrate (Zolpidem Tartrate 5 Mg Tab) 5 mg PO [facility] Stop: 12/09/20 20:59 (1) Headache Headache chronicity pattern: unspecified pattern Headache type: unspecified Intractability: not intractable Qualified Code(s): R51.9 - Headache, un specified
[2020-11-09] MEDS: NICOTINE 14 MG/24 HR PATCH TD SCH (11:55)
[2020-11-09] MEDS: UMECLIDINIUM BROMIDE 62.5MCG/BLISTER 7 PUFFS/INHALER INH SCH (11:55)
[2020-11-09] MEDS: FLUTICASONE/VILANTEROL 200/25MCG 14 PUFFS/INHALER INH SCH (11:59)
[2020-11-09] MEDS: CARBOHYDRATES FOR HYPOGLYCEMIA PO PRN ×2 (14:12→14:25)
--- NOTE | 2020-11-09 16:03 | Hospitalist Progress Note ---
Date of Service November 09, 2020 Assessment & Plan (1) Chest pain: (2) Palpitation: SOB Fluid Overload. Acute on chronic diastolic CHF per Admitting Service notes: Pt is 65 y/o F with PMH DM II, HTN, HLD, hypothyroidism, chronic respiratory failure with hypoxia on 2L O2, DARIUS on CPAP, COPD, paroxysmal atrial fibrillation, venous thrombosis, CKD III< Lynn's esophagus, chronic pain, anemia, tobacco use disorder, h/o mitral valve repair, depression presented to ER with c/o CP, SOB. H/O COVID 10/11/20 CXR: Cardiomegaly with pulmonary vascular congestion and unchanged reticular opacities suggestive of pulmonary edema. EKG without significant change Negative troponin ACS ruled out on Lasix 40mg IV q12h improving monitor crea monitor closely Chronic respiratory failure with hypoxia on oxygen 2 liters. COPD -at baseline 2 L -Continue chronic oxygen supplementation -Continue home inhalers H/O COVID-19 diagnosed on 10/11/2020 -Finished steroids Headache right sided OLSON/ear ache Unable to fully visualize TM secondary to cerumen -Debrox drops - resolved Paroxysmal atrial fibrillation On Coumadin INR: 4.2 -Hold Coumadin -INR daily -Continue diltiazem, metoprolol HTN -Continue diltiazem, metoprolol, Amlodipine DM II A1c: 8.3 on 10/21/20 -Hold home meds -Basal bolus insulin per protocol adjusted ISS to prevent hypoglycemia CKD III Cr: 1.6. At baseline -Monitor renal functions and avoid nephrotoxic agents when possible Sleep apnea -CPAP at bedtime Anxiety and depression -Continue home meds Chronic pain -Continue fentanyl patch, oxycodone prn GERD -Continue PPI DVT Prophylaxis -INR supratherapeutic (3) Headache: Admission and Anticipated Discharge Date Admission Date: November 08, 2020 Subjective ff up for volume overload, etc seen resting in bed, comfortable not in distress on usual 2 L O2 via NC in good spirits states she feels improved compared to yesterday denies active shortness of breath, chest pain, cough no other symptoms Review of Systems Review of Systems: All systems reviewed & are unremarkable except as noted in Subjective Physical Exam Physical Exam: General- oriented x 3, not in distress, speaks in sentences with no effort or accessory muscle use Head- atraumatic Eyes- PERRL, EOMI, anicteric ENT- oropharynx clear Neck- supple, mild JVD, no adenopathy, no thyromegaly; carotids +2/2, no bruits appreciated Lungs- (+) mild rales at the bases no wheezing good air entry bilaterally Heart- normal rate, regular rhythm; no murmur, no gallop, no rub appreciated Abdomen- normal bowel sounds, nondistended, soft, nontender, no masses or hepatosplenomegaly Extremities- mild pretibial edema, no calf tenderness; peripheral pulses intact Neuro- alert, oriented x 3; CN 2-12 grossly intact; motor 5/5 bilaterally;sensation 100% on all extremities; no other gross focal neurologic deficits Skin- warm & dry Results & Data Results & Data ([facility]) Vital Signs (Past 12 Hours) Vital Signs Temp Pulse Resp BP BP Pulse Ox 11/09/20 14:39 36.6 C 133 H 20 176/79 H 93 11/09/20 09:14 102 H 20 97 11/09/20 07:21 36.6 C 99 H 20 122/64 97 Laboratory Results Laboratory Results - last 24 hr 11/08/20 11/08/20 11/08/20 19:20 19:20 19:20 WBC 7.28 RBC 3.97 L Hgb 11.8 L Hct 35.8 L MCV 90.2 MCH 29.7 MCHC 33.0 RDW Std Deviation 48.4 H RDW Coeff of King 15.0 H Plt Count 277 MPV 9.4 Immature Gran % (Auto) 0.3 Neut % (Auto) 75.4 Lymph % (Auto) 13.9 [place] % (Auto) 8.0 Eos % (Auto) 2.3 Baso % (Auto) 0.1 Neut # (Auto) 5.49 Lymph # (Auto) 1.01 L [place] # (Auto) 0.58 Eos # (Auto) 0.17 Baso # (Auto) 0.01 Immature Gran # (Auto) 0.02 PT 42.1 H INR 4.7 H Sodium 137 Potassium 3.9 Chloride 101 Carbon Dioxide 31 Anion Gap 4.0 BUN 25 H Creatinine 1.65 H Est Cr Clr Drug Dosing 40.7 Est GFR ( Amer) 37.6 Est GFR (Non-Af Amer) 32.5 BUN/Creatinine Ratio 14.8 Glucose 206 H POC Glucose Calcium 9.0 Magnesium 2.0 Total Bilirubin 0.4 AST 27 ALT 44 Alkaline Phosphatase 77 Troponin I < 0.015 Total Protein 6.5 Albumin 2.8 L Globulin 3.7 Albumin/Globulin Ratio 0.8 L Lipase 102 COVID-19 Eval Order SARS-CoV-2, RNA, NAAT 11/08/20 11/08/20 11/09/20 22:37 22:37 00:55 WBC RBC Hgb Hct MCV MCH MCHC RDW Std Deviation RDW Coeff of King Plt Count MPV Immature Gran % (Auto) Neut % (Auto) Lymph % (Auto) [place] % (Auto) Eos % (Auto) Baso % (Auto) Neut # (Auto) Lymph # (Auto) [place] # (Auto) Eos # (Auto) Baso # (Auto) Immature Gran # (Auto) PT INR Sodium Potassium Chloride Carbon Dioxide Anion Gap BUN Creatinine Est Cr Clr Drug Dosing Est GFR ( Amer) Est GFR (Non-Af Amer) BUN/Creatinine Ratio Glucose POC Glucose 238 H Calcium Magnesium Total Bilirubin AST ALT Alkaline Phosphatase Troponin I Total Protein Albumin Globulin Albumin/Globulin Ratio Lipase COVID-19 Eval Order Covid19 [facility] SARS-CoV-2, RNA, NAAT NEGATIVE 11/09/20 11/09/20 11/09/20 01:19 07:10 07:10 WBC 6.09 RBC 4.18 L Hgb 12.8 Hct 37.9 MCV 90.7 MCH 30.6 MCHC 33.8 RDW Std Deviation 50.2 H RDW Coeff of King 15.4 H Plt Count 292 MPV 9.4 Immature Gran % (Auto) Neut % (Auto) Lymph % (Auto) [place] % (Auto) Eos % (Auto) Baso % (Auto) Neut # (Auto) Lymph # (Auto) [place] # (Auto) Eos # (Auto) Baso # (Auto) Immature Gran # (Auto) PT INR Sodium 142 Potassium 3.8 Chloride 105 Carbon Dioxide 35 H Anion Gap 2.0 L BUN 25 H Creatinine 1.49 H Est Cr Clr Drug Dosing 43.4 Est GFR ( Amer) 42.6 Est GFR (Non-Af Amer) 36.7 BUN/Creatinine Ratio 17.0 Glucose 92 POC Glucose Calcium 9.3 Magnesium Total Bilirubin AST ALT Alkaline Phosphatase Troponin I 0.015 Total Protein Albumin Globulin Albumin/Globulin Ratio Lipase COVID-19 Eval Order SARS-CoV-2, RNA, NAAT 11/09/20 11/09/20 11/09/20 07:10 07:10 07:16 WBC RBC Hgb Hct MCV MCH MCHC RDW Std Deviation RDW Coeff of King Plt Count MPV Immature Gran % (Auto) Neut % (Auto) Lymph % (Auto) [place] % (Auto) Eos % (Auto) Baso % (Auto) Neut # (Auto) Lymph # (Auto) [place] # (Auto) Eos # (Auto) Baso # (Auto) Immature Gran # (Auto) PT 38.2 H INR 4.2 H Sodium Potassium Chloride Carbon Dioxide Anion Gap BUN Creatinine Est Cr Clr Drug Dosing Est GFR ( Amer) Est GFR (Non-Af Amer) BUN/Creatinine Ratio Glucose POC Glucose 104 H Calcium Magnesium Total Bilirubin AST ALT Alkaline Phosphatase Troponin I < 0.015 Total Protein Albumin Globulin Albumin/Globulin Ratio Lipase COVID-19 Eval Order SARS-CoV-2, RNA, NAAT 11/09/20 11/09/20 11/09/20 11:30 14:02 14:03 WBC RBC Hgb Hct MCV MCH MCHC RDW Std Deviation RDW Coeff of King Plt Count MPV Immature Gran % (Auto) Neut % (Auto) Lymph % (Auto) [place] % (Auto) Eos % (Auto) Baso % (Auto) Neut # (Auto) Lymph # (Auto) [place] # (Auto) Eos # (Auto) Baso # (Auto) Immature Gran # (Auto) PT INR Sodium Potassium Chloride Carbon Dioxide Anion Gap BUN Creatinine Est Cr Clr Drug Dosing Est GFR ( Amer) Est GFR (Non-Af Amer) BUN/Creatinine Ratio Glucose POC Glucose 141 H 55 L* 55 L* Calcium Magnesium Total Bilirubin AST ALT Alkaline Phosphatase Troponin I Total Protein Albumin Globulin Albumin/Globulin Ratio Lipase COVID-19 Eval Order SARS-CoV-2, RNA, NAAT 11/09/20 11/09/20 11/09/20 14:19 14:19 14:42 WBC RBC Hgb Hct MCV MCH MCHC RDW Std Deviation RDW Coeff of King Plt Count MPV Immature Gran % (Auto) Neut % (Auto) Lymph % (Auto) [place] % (Auto) Eos % (Auto) Baso % (Auto) Neut # (Auto) Lymph # (Auto) [place] # (Auto) Eos # (Auto) Baso # (Auto) Immature Gran # (Auto) PT INR Sodium Potassium Chloride Carbon Dioxide Anion Gap BUN Creatinine Est Cr Clr Drug Dosing Est GFR ( Amer) Est GFR (Non-Af Amer) BUN/Creatinine Ratio Glucose POC Glucose 58 L* 64 L* 80 Calcium Magnesium Total Bilirubin AST ALT Alkaline Phosphatase Troponin I Total Protein Albumin Globulin Albumin/Globulin Ratio Lipase COVID-19 Eval Order SARS-CoV-2, RNA, NAAT (1) Headache Headache chronicity pattern: unspecified pattern Headache type: unspecified Intractability: not intractable Qualified Code(s): R51.9 - Headache, unspecified
--- NOTE | 2020-11-09 16:47 | Electrocardiogram Report ---
Test Reason : Blood Pressure : / mmHG Vent. Rate : 102 BPM Atrial Rate : 250 BPM P-R Int : 000 ms QRS Dur : 150 ms QT Int : 410 ms P-R-T Axes : 000 105 014 degrees QTc Int : 534 ms Atrial flutter with variable A-V block Right bundle branch block T wave abnormality, consider inferior ischemia Abnormal ECG When compared with ECG of 04-NOV-2020 19:02, Atrial flutter has replaced Atrial fibrillation Nonspecific T wave abnormality no longer evident in Lateral leads QT has lengthened Confirmed by Jarrod Alaniz ([id number]) on 11/09/2020 4:47:01 PM Referred By: REFERRED SELF Confirmed By:Tristen Alaniz
--- NOTE | 2020-11-09 16:51 | Electrocardiogram Report ---
Test Reason : Blood Pressure : / mmHG Vent. Rate : 095 BPM Atrial Rate : 258 BPM P-R Int : 000 ms QRS Dur : 126 ms QT Int : 372 ms P-R-T Axes : 081 091 061 degrees QTc Int : 467 ms Atrial flutter with variable A-V block Rightward axis Right bundle branch block T wave abnormality, consider anterior ischemia Abnormal ECG When compared with ECG of 08-NOV-2020 18:46, (unconfirmed) QRS duration has decreased QT has shortened Confirmed by Jarrod Alaniz ([id number]) on 11/09/2020 4:51:21 PM Referred By: REFERRED SELF Confirmed By:Tristen Alaniz
[2020-11-09] MEDS: METOPROLOL TARTRATE 1 MG/ML VIAL IV PRN ×2 (16:54→20:45)
[2020-11-09] MEDS: amLODIPine BESYLATE 5 MG TAB PO SCH (18:21)
[2020-11-09] MEDS: ACETAMINOPHEN 325 MG TAB PO PRN (20:40)
[2020-11-09] MEDS: traZODone HCL 100 MG TAB PO SCH (20:41)
[2020-11-09] MEDS: AMITRIPTYLINE HCL 50 MG TAB PO SCH (20:42)
[2020-11-09] MEDS: ATORVASTATIN 40 MG TAB PO SCH (20:43)
[2020-11-09] MEDS: CETIRIZINE HCL 10 MG TABLET PO SCH (20:45)
[2020-11-09] MEDS: MELATONIN 3 MG TAB PO SCH (22:01)
[2020-11-09] MEDS: ZOLPIDEM TARTRATE 5 MG TAB PO SCH (22:01)
[2020-11-10] MEDS: FLUTICASONE/VILANTEROL 200/25MCG 14 PUFFS/INHALER INH SCH (08:05)
[2020-11-10] MEDS: CARBAMIDE PEROXIDE 6.5% 15 ML BTL OT SCH ×2 (08:06→21:54)
[2020-11-10] MEDS: DOCUSATE SODIUM 100 MG CAP PO SCH ×2 (08:06→21:53)
[2020-11-10] MEDS: POLYETHYLENE (MIRALAX) 17 GM PACK PO SCH (08:06)
[2020-11-10] MEDS: MULTIVITAMIN TAB PO SCH (08:06)
[2020-11-10] MEDS: NICOTINE 14 MG/24 HR PATCH TD SCH (08:06)
[2020-11-10] MEDS: POTASSIUM CHLORIDE CRTAB 20 MEQ TABCR PO SCH ×3 (08:06→21:54)
[2020-11-10] MEDS: VENLAFAXINE HCL XR 150 MG CAPXR PO SCH (08:06)
[2020-11-10] MEDS: FUROSEMIDE 40 MG in SYRINGE 0 ML IV SCH ×2 (08:06→16:54)
[2020-11-10] MEDS: dilTIAZem HCL 180 MG CAPCR PO SCH (08:06)
[2020-11-10] MEDS: GABAPENTIN 800 MG TAB PO SCH ×2 (08:06→21:52)
[2020-11-10] MEDS: VENLAFAXINE HCL XR 75 MG CAPXR PO SCH (08:06)
[2020-11-10] MEDS: UMECLIDINIUM BROMIDE 62.5MCG/BLISTER 7 PUFFS/INHALER INH SCH (08:06)
[2020-11-10] MEDS: amLODIPine BESYLATE 5 MG TAB PO SCH (08:07)
[2020-11-10] MEDS: CALCITRIOL 0.25 MCG CAPSULE PO SCH (08:07)
[2020-11-10] MEDS: METOPROLOL SUCC 50MG EXT REL TAB PO SCH ×2 (08:07→17:31)
[2020-11-10] MEDS: INSULIN GLARGINE SOLOSTAR 100 UNITS/ML 3 ML PEN SC SCH ×2 (08:07→21:54)
[2020-11-10] MEDS: PANTOprazole 40 MG TAB PO SCH ×2 (08:07→21:52)
[2020-11-10] MEDS: METHOCARBAMOL 750 MG TABLET PO SCH ×3 (08:07→21:53)
[2020-11-10] MEDS: CHECK fentaNYL PATCH PLACEMENT SCH ×2 (08:07→16:23)
[2020-11-10] MEDS: CHOLECALCIFEROL 1,000 UNITS 25 MCG TAB PO SCH (08:07)
[2020-11-10] MEDS: INSULIN ASPART 100 UNITS/ML 3 ML PEN SC SCH ×4 (08:08→21:37)
[2020-11-10 08:40] LABS: INR 3.3 (0.9-1.1); Prothrombin Time 30.8 Seconds (9.0-12.0)
[2020-11-10 09:12] LABS: BUN Creatinine Ratio 16.3 (10-20); Calcium 9.1 mg/dl (8.5-10.1); Est GFR (African American) 39.7; Est GFR (Non-African American) 34.2; Potassium 4.4 mmol/L (3.5-5.1)
[2020-11-10] MEDS ORDERED: XOPENEX/ATROVENT 1.25mg/0.5MG NEB COMBO NEB SCH (10:25)
--- NOTE | 2020-11-10 11:07 | XRay Report ---
XR chest 1V portable CLINICAL HISTORY: Congestive failure COMPARISON STUDY: 11/08/2020 FINDINGS: The heart remains enlarged. There is persistent diffuse elevation of interstitium, consiste nt with persistent congestive failure/pulmonary edema. Interstitial lung disease, or interstitial inf ectious/inflammatory process could appear similar. A valvular prosthesis is again visualized. There i s no lobar consolidation[ IMPRESSION: Persistent cardiomegaly and pulmonary edema pattern. ACT 112: Negative or not required by law. Electronically signed by: Cesar oLpez M.D. 11/10/2020 11:06 AM
[2020-11-10] MEDS: IPRATROPIUM BROMIDE NEB SOLN 0.02% 2.5 ML VIAL INH SCH ×2 (12:57→19:16)
[2020-11-10] MEDS: LEVALBUTEROL 1.25MG/0.5ML NEB INH SCH ×2 (12:57→19:16)
--- NOTE | 2020-11-10 13:06 | Cardiology Progress Note ---
Date of Service November 10, 2020 Assessment & Plan (1) Atypical chest pain: (2) Headache: (3) Chronic respiratory failure: (4) COVID-19: (5) COPD exacerbation: (6) Chest pain: (7) Atrial flutter: Patient appears comfortable today. She is in negative numbers. She remains in atrial flutter with high heart rates. I have increased her diltiazem to 240 mg daily. I thought about adding digoxin however, she does have some renal insufficiency. Her warfarin is currently on hold due to an elevated INR. Admission and Anticipated Discharge Date Admission Date: November 09, 2020 Subjective The patient looks better today. She is sitting in the chair and appears comfortable. She had a large diuresis. Heart rates remain high with atrial flutter. Review of Systems Review of Systems: All systems reviewed & are unremarkable except as noted in Subjective Physical Exam Physical Exam: General: no acute distress and stated age Head: normocephalic, no masses, lesions, tenderness or abnormalities Eyes: conjunctiva are pink and non-injected, sclera clear Neck: supple, no adenopathy, no bruits, normal jugular venous pulse, no hepatojugular reflux Chest: normal shape and normal respiratory effort Lungs: clear to auscultation and percussion Cardiac Exam: - irregular rate & rhythm, no murmurs gallops or rubs - normal S1, normal S2 Pulses: 2(+) throughout Abdomen: abdomen soft, non-tender, no abnormal masses and no hepatosplenomegaly Musculoskeletal: no gait disturbance, no joint inflammation, no deforming arthritis Extremities: no edema and no cyanosis Neuro: grossly normal exam Results & Data ([facility]) Vital Signs (Past 12 Hours) Vital Signs Temp Pulse Pulse Resp BP BP Pulse Ox 11/10/20 12:59 115 H 18 95 11/10/20 11:39 36.5 C 123 H 18 121/71 95 11/10/20 09:00 96 H 11/10/20 07:47 36.5 C 92 H 17 118/77 97 11/10/20 04:30 36.7 C 80 16 112/74 96 Laboratory Results Laboratory Results - last 24 hr 11/09/20 11/09/20 11/09/20 14:02 14:03 14:19 PT INR Sodium Potassium Chloride Carbon Dioxide Anion Gap BUN Creatinine Est Cr Clr Drug Dosing Est GFR ( Amer) Est GFR (Non-Af Amer) BUN/Creatinine Ratio Glucose POC Glucose 55 L* 55 L* 58 L* Calcium 11/09/20 11/09/20 11/09/20 14:19 14:42 16:28 PT INR Sodium Potassium Chloride Carbon Dioxide Anion Gap BUN Creatinine Est Cr Clr Drug Dosing Est GFR ( Amer) Est GFR (Non-Af Amer) BUN/Creatinine Ratio Glucose POC Glucose 64 L* 80 139 H Calcium 11/09/20 11/10/20 11/10/20 20:13 07:35 08:15 PT INR Sodium 142 Potassium 4.4 D Chloride 104 Carbon Dioxide 36 H Anion Gap 2.0 L BUN 26 H Creatinine 1.58 H Est Cr Clr Drug Dosing 42.0 Est GFR ( Amer) 39.7 Est GFR (Non-Af Amer) 34.2 BUN/Creatinine Ratio 16.3 Glucose 123 H POC Glucose 266 H 110 H Calcium 9.1 11/10/20 11/10/20 08:15 11:21 PT 30.8 H INR 3.3 H Sodium Potassium Chloride Carbon Dioxide Anion Gap BUN Creatinine Est Cr Clr Drug Dosing Est GFR ( Amer) Est GFR (Non-Af Amer) BUN/Creatinine Ratio Glucose POC Glucose 249 H Calcium Medications Administered Current Inpatient Medications Acetaminophen (Acetaminophen 325 Mg Tab) 650 mg PO Q4H PRN PRN Reason: Pain or Fever Stop: 12/09/20 00:56 Last Admin: 11/09/20 20:40 Dose: 650 mg Documented by: Al Hydroxide/Mg Trisilicate (Alum Hydrox/Mag Trisilicate Chew) 1 tab PO TID PRN PRN Reason: Reflux Stop: 12/09/20 00:56 Last Admin: 11/09/20 14:02 Dose: 1 tab Documented by: Amitriptyline HCl (Amitriptyline Hcl 50 Mg Tab) 50 mg PO [facility] Stop: 12/09/20 20:59 Last Admin: 11/09/20 20:42 Dose: 50 mg Documented by: Amlodipine Besylate (Amlodipine Besylate 5 Mg Tab) [facility] Stop: 12/09/20 16:59 Last Admin: 11/10/20 08:07 Dose: 5 mg Documented by: Atorvastatin Calcium (Atorvastatin 40 Mg Tab) 40 mg PO [facility] Stop: 12/09/20 20:59 Last Admin: 11/09/20 20:43 Dose: 40 mg Documented by: Calcitriol (Calcitriol 0.25 Mcg Capsule) 0.25 mcg PO MoWeFr@0900 JORGE Stop: 12/10/20 08:59 Last Admin: 11/10/20 08:07 Dose: 0.25 mcg Documented by: Carbamide Peroxide (Carbamide Peroxide 6.5% 15 Ml Btl) 5 drops OT BID JORGE Stop: 11/13/20 00:56 Last Admin: 11/10/20 08:06 Dose: 5 drops Documented by: Cetirizine HCl (Cetirizine Hcl 10 Mg Tablet) 10 mg PO HS JORGE Stop: 12/09/20 20:59 Last Admin: 11/09/20 20:45 Dose: 10 mg Documented by: Dextrose (Dextrose 50% 50 Ml Syringe) 25 - 50 ml IV UD PRN; Protocol PRN Reason: Hypoglycemia Protocol Stop: 12/09/20 00:56 Diltiazem HCl (Diltiazem Hcl 240 Mg Capcr) 240 mg PO QAM JORGE Stop: 12/11/20 08:59 Docusate Sodium (Docusate Sodium 100 Mg Cap) 100 mg PO BID JORGE Stop: 12/09/20 08:59 Last Admin: 11/10/20 08:06 Dose: 100 mg Documented by: Fentanyl (Fentanyl 50 Mcg/Hr Tdsy) 50 mcg TD Q72H [facility] Stop: 11/25/20 12:59 Fluticasone/Vilanterol (Fluticasone/Vilanterol 200/25mcg 14 Puffs/Inhaler) 1 puffs INH DAILY JORGE Stop: 12/09/20 08:59 Last Admin: 11/10/20 08:05 Dose: 1 puffs Documented by: Gabapentin (Gabapentin 800 Mg Tab) 800 mg PO BID JORGE Stop: 12/09/20 08:59 Last Admin: 11/10/20 08:06 Dose: 800 mg Documented by: Glucagon (Glucagon For Inj 1 Mg Vial) 1 mg SQ UD PRN; Protocol PRN Reason: Hypoglycemia Protocol Stop: 12/09/20 00:56 Glucose (Glucose 10 Tabs/Tube) 4 - 8 tabs PO UD PRN; Protocol PRN Reason: Hypoglycemia Protocol Stop: 12/09/20 00:56 Glucose (Glucose 40% Gel 15 Gm Tube) 15 - 30 gm PO UD PRN; Protocol PRN Reason: Hypoglycemia Protocol Stop: 12/09/20 00:56 Furosemide 40 mg/ Syringe 4 mls @ 4 mls/min IV [id number] [facility] Stop: 12/09/20 08:59 Last Admin: 11/10/20 08:06 Dose: 4 mls/min Documented by: Insulin Aspart (Insulin Aspart 100 Units/Ml 3 Ml Pen) 0 units SC ACHS [facility] Stop: 12/09/20 01:29 Last Admin: 11/10/20 12:07 Dose: 4 units Documented by: Insulin Glargine (Insulin Glargine Solostar 100 Units/Ml 3 Ml Pen) 10 units SC BID [facility] Stop: 12/09/20 01:29 Last Admin: 11/10/20 08:07 Dose: 10 units Documented by: Ipratropium Java (Ipratropium Java Neb Soln 0.02% 2.5 Ml Vial) 0.5 mg INH Q6R [facility] Stop: 12/10/20 12:59 Last Admin: 11/10/20 12:57 Dose: 0.5 mg Documented by: Levalbuterol HCl (Levalbuterol Tartrate 15 Gm Hfa.Aer.Ad) 1 puffs INH Q4H PRN PRN Reason: Wheezing Stop: 12/09/20 00:56 Levalbuterol HCl (Levalbuterol Hcl 1.25 Mg/3 Ml Neb) 1.25 mg INH Q4H PRN PRN Reason: Wheezing Stop: 12/09/20 00:56 Last Admin: 11/09/20 19:47 Dose: 1.25 mg Documented by: Levalbuterol HCl (Levalbuterol 1.25mg/0.5ml Neb) 1.25 mg INH Q6R [facility] Stop: 12/10/20 12:59 Last Admin: 11/10/20 12:57 Dose: 1.25 mg Documented by: Melatonin (Melatonin 3 Mg Tab) 9 mg PO HS [facility] Stop: 12/09/20 20:59 Last Admin: 11/09/20 22:01 Dose: 9 mg Documented by: Methocarbamol (Methocarbamol 750 Mg Tablet) 750 mg PO TID [facility] Stop: 12/09/20 08:59 Last Admin: 11/10/20 08:07 Dose: 750 mg Documented by: Metoprolol Succinate (Metoprolol Succ 50mg Ext Rel Tab) 100 mg PO BID [facility] Stop: 12/09/20 08:59 Last Admin: 11/10/20 08:07 Dose: 100 mg Documented by: Metoprolol Tartrate (Metoprolol Tartrate 1 Mg/Ml Vial) 2.5 mg IV Q6 PRN PRN Reason: HR > 120 Stop: 12/09/20 17:59 Last Admin: 11/09/20 20:45 Dose: 2.5 mg Documented by: Miscellaneous (Carbohydrates For Hypoglycemia ) 15 - 30 gm PO UD PRN PRN Reason: Hypoglycemia Protocol Stop: 12/09/20 00:56 Last Admin: 11/09/20 14:25 Dose: 15 gm Documented by: Miscellaneous (Check Fentanyl Patch Placement) 1 ea N/A QS [facility] Stop: 12/09/20 00:56 Last Admin: 11/10/20 08:07 Dose: 1 ea Documented by: Miscellaneous (Fentanyl Patch Remove & Waste) 1 ea N/A Q72H [facility] Stop: 12/11/20 12:58 Miscellaneous (Remove Nicoderm Patch) 1 ea N/A DAILY@0859 [facility] Stop: 12/10/20 08:58 Last Admin: 11/10/20 08:07 Dose: 1 ea Documented by: Multivitamins (Multivitamin Tab) 1 tab PO QAM [facility] Stop: 12/09/20 08:59 Last Admin: 11/10/20 08:06 Dose: 1 tab Documented by: Nicotine (Nicotine 14 Mg/24 Hr Patch) 14 mg TD QAM [facility] Stop: 12/09/20 10:29 Last Admin: 11/10/20 08:06 Dose: 14 mg Documented by: Nitroglycerin (Nitroglycerin Sl 0.4 Mg/Tab Tab) 0.4 mg SL UD PRN PRN Reason: Chest Pain Stop: 12/09/20 00:56 Oxycodone HCl (Oxycodone Hcl Ir 5 Mg Tab (Immediate Release)) 10 mg PO Q6H PRN PRN Reason: Pain Stop: 11/23/20 00:56 Last Admin: 11/09/20 16:33 Dose: 10 mg Documented by: Pantoprazole Sodium (Pantoprazole 40 Mg Tab) 40 mg PO BID [facility] Stop: 12/09/20 08:59 Last Admin: 11/10/20 08:07 Dose: 40 mg Documented by: Polyethylene Glycol (Polyethylene (Miralax) 17 Gm Pack) 17 gm PO DAILY PRN PRN Reason: Constipation Stop: 12/09/20 00:56 Last Admin: 11/09/20 16:30 Dose: 17 gm Documented by: Polyethylene Glycol (Polyethylene (Miralax) 17 Gm Pack) 17 gm PO DAILY JORGE Stop: 12/09/20 08:59 Last Admin: 11/10/20 08:06 Dose: 17 gm Documented by: Potassium Chloride (Potassium Chloride Crtab 20 Meq Tabcr) 40 meq PO TID [facility] Stop: 12/09/20 08:59 Last Admin: 11/10/20 08:06 Dose: 40 meq Documented by: Trazodone HCl (Trazodone Hcl 100 Mg Tab) 200 mg PO [facility] Stop: 12/09/20 20:59 Last Admin: 11/09/20 20:41 Dose: 200 mg Documented by: Umeclidinium Java (Umeclidinium Java 62.5mcg/Blister 7 Puffs/Inhaler) [facility] Stop: 12/09/20 08:59 Last Admin: 11/10/20 08:06 Dose: 1 puffs Documented by: Venlafaxine HCl (Venlafaxine Hcl Xr 150 Mg Capxr) 150 mg PO QAM [facility] Stop: 12/09/20 08:59 Last Admin: 11/10/20 08:06 Dose: 150 mg Documented by: Venlafaxine HCl (Venlafaxine Hcl Xr 75 Mg Capxr) 75 mg PO QAM [facility] Stop: 12/09/20 08:59 Last Admin: 11/10/20 08:06 Dose: 75 mg Documented by: Vitamin D (Cholecalciferol 1,000 Units 25 Mcg Tab) 1,000 units PO QAM [facility] Stop: 12/09/20 08:59 Last Admin: 11/10/20 08:07 Dose: 1,000 units Documented by: Zolpidem Tartrate (Zolpidem Tartrate 5 Mg Tab) 5 mg PO [facility] Stop: 12/09/20 20:59 Last Admin: 11/09/20 22:01 Dose: 5 mg Documented by:
--- NOTE | 2020-11-10 14:06 | Electrocardiogram Report ---
Test Reason : Blood Pressure : / mmHG Vent. Rate : 096 BPM Atrial Rate : 256 BPM P-R Int : 000 ms QRS Dur : 150 ms QT Int : 414 ms P-R-T Axes : 089 087 042 degrees QTc Int : 523 ms Atrial flutter with variable A-V block Right bundle branch block Abnormal ECG When compared with ECG of 09-NOV-2020 06:37, QRS duration has increased QT has lengthened Confirmed by Jarrod Alaniz ([id number]) on 11/10/2020 2:06:41 PM Referred By: REFERRED SELF Confirmed By:Tristen Alaniz
--- NOTE | 2020-11-10 14:52 | Hospitalist Progress Note ---
Date of Service November 10, 2020 Assessment & Plan (1) Chest pain: (2) Palpitation: SOB Fluid Overload. Acute on chronic diastolic CHF per Admitting Service notes: Pt is 65 y/o F with PMH DM II, HTN, HLD, hypothyroidism, chronic respiratory failure with hypoxia on 2L O2, DARIUS on CPAP, COPD, paroxysmal atrial fibrillation, venous thrombosis, CKD III< Lynn's esophagus, chronic pain, anemia, tobacco use disorder, h/o mitral valve repair, depression presented to ER with c/o CP, SOB. H/O COVID 10/11/20 CXR: Cardiomegaly with pulmonary vascular congestion and unchanged reticular opacities suggestive of pulmonary edema. EKG without significant change Negative troponin ACS ruled out on Lasix 40mg IV q12h negative 4 L so far still has crackles reports mild dyspnea this AM repeat CXR: simillar CHF pattern vs ILD check CT chest wo contrast continue IV Lasix 40mg q12h add Nebs q6h, Incentive Spirometry and Flutter Valve monitor crea monitor closely Chronic respiratory failure with hypoxia on oxygen 2 liters. COPD -at baseline 2 L -Continue Breo H/O COVID-19 diagnosed on 10/11/2020 -Finished steroids Headache right sided OLSON/ear ache Unable to fully visualize TM secondary to cerumen -Debrox drops - resolved Paroxysmal atrial fibrillation On Coumadin INR: 3.3 -Hold Coumadin -INR daily -Continue diltiazem, metoprolol HTN -Continue diltiazem, metoprolol, Amlodipine DM II A1c: 8.3 on 10/21/20 -Hold home meds -Basal bolus insulin per protocol adjusted ISS to prevent hypoglycemia CKD III Cr: 1.6. -At baseline -Monitor renal functions while on IV Lasix Sleep apnea -CPAP at bedtime Anxiety and depression -Continue home meds Chronic pain -Continue fentanyl patch, oxycodone prn GERD -Continue PPI DVT Prophylaxis -INR 3.3 Disposition pending lives at home will order PT/OT eval (3) Headache: Admission and Anticipated Discharge Date Admission Date: November 09, 2020 Subjective ff up for CHF exacerbation seen resting in bed, sleeping but easily awakened states she has some mild dyspnea today denies cough, sputum production, chest pain no palpitations, dizziness no abdominal pain, nausea/vomiting no other symptoms Review of Systems Review of Systems: All systems reviewed & are unremarkable except as noted in Subjective Physical Exam Physical Exam: General- oriented x 3, not in distress, speaks in sentences with no effort or accessory muscle use Eyes- anicteric Neck- no JVD Lungs- (+) crackles at the bases good air entry bilaterally Heart- normal rate, regular rhythm; no murmurs Abdomen- normal bowel sounds, nondistended, soft, nontender Extremities- mild pretibial edema, no calf tenderness Neuro- alert, oriented x 3; no gross focal neurologic deficits Skin- warm & dry Results & Data Results & Data ([place]) Vital Signs (Past 12 Hours) Vital Signs Temp Pulse Pulse Resp BP BP Pulse Ox 11/10/20 12:59 115 H 18 95 11/10/20 11:39 36.5 C 123 H 18 121/71 95 11/10/20 09:00 96 H 11/10/20 07:47 36.5 C 92 H 17 118/77 97 11/10/20 04:30 36.7 C 80 16 112/74 96 Laboratory Results Laboratory Results - last 24 hr 11/09/20 11/09/20 11/10/20 16:28 20:13 07:35 PT INR Sodium Potassium Chloride Carbon Dioxide Anion Gap BUN Creatinine Est Cr Clr Drug Dosing Est GFR ( Amer) Est GFR (Non-Af Amer) BUN/Creatinine Ratio Glucose POC Glucose 139 H 266 H 110 H Calcium 11/10/20 11/10/20 11/10/20 08:15 08:15 11:21 PT 30.8 H INR 3.3 H Sodium 142 Potassium 4.4 D Chloride 104 Carbon Dioxide 36 H Anion Gap 2.0 L BUN 26 H Creatinine 1.58 H Est Cr Clr Drug Dosing 42.0 Est GFR ( Amer) 39.7 Est GFR (Non-Af Amer) 34.2 BUN/Creatinine Ratio 16.3 Glucose 123 H POC Glucose 249 H Calcium 9.1 (1) Headache Headache chronicity pattern: unspecified pattern Headache type: unspecified Intractability: not intractable Qualified Code(s): R51.9 - Headache, unspecified
[2020-11-10] MEDS: METOPROLOL TARTRATE 1 MG/ML VIAL IV PRN (16:20)
--- NOTE | 2020-11-10 16:50 | CT Scan Report ---
CT SCAN OF THE CHEST WITHOUT IV CONTRAST CLINICAL HISTORY: Congestive heart failure. COMPARISON STUDY: Chest CT dated 11/04/2020, 11/16/2017, and 09/29/2010. TECHNIQUE: CT scan of the thorax was performed from the thoracic inlet to the upper abdomen. Images are reviewed in the axial, sagittal, and coronal planes. IV contrast was not administered for this ex amination as per the referring clinician. A dose lowering technique was utilized adhering to the kiana Patricia. The examination is degraded by motion artifact. CT DOSE: 667.35 mGy.cm FINDINGS: Thyroid: Imaged portions of the thyroid gland are normal in size and attenuation. Low-attenuation thy roid nodules measure up to 12 mm. Thoracic aorta: There is atherosclerotic calcification of the thoracic aorta, which is normal in tameka raphael and demonstrates standard 3-vessel arch anatomy. Heart: The heart is normal in size and without pericardial effusion. There is evidence of previous mi tral valve surgery. There is lipomatous hypertrophy of the interatrial septum. The coronary arteries are calcified. The pulmonary trunk is markedly dilated measuring 4.4 cm in diameter. This suggests pu lmonary artery hypertension. Lungs and pleural spaces: Evaluation of the lung parenchyma is degraded by motion artifact. Emphysema tous change is noted. Intralobular septal thickening is noted throughout both lungs. Foci of parenchy mal scarring/atelectasis are seen at the lung bases. There is no honeycombing or traction bronchiecta sis. Mild subpleural reticulation is suggested. No airspace consolidation is seen typical for pneumon ia. A fat-containing Bochdalek hernia is seen at the left lung base. There is trace right pleural eff usion. A 7 mm right middle lobe pulmonary nodule is seen on image #177. A 9 mm pulmonary nodule in th e lingula is seen on image #144. Secretions are noted in the trachea and the right mainstem bronchus. Mediastinum: There are enlarged mediastinal lymph nodes. A precarinal node on image #120 measures 2.6 x 1.8 cm. A subcarinal node measures 2.3 cm in short axis. A right paratracheal node on image #98 me asures 2.6 x 1.8 cm. Felisha: Not well assessed without IV contrast. Axillae: There is no axillary lymphadenopathy. Upper abdomen: There is a small hiatal hernia. The liver is enlarged. Cholecystectomy clips are noted . A 3 cm left adrenal nodule meets CT criteria for a fat-containing adenoma. A calcified granuloma is present in the spleen. Skeletal structures: The skeletal structures are osteopenic. The skeletal structures are osteopenic. Mild degenerative change and scoliosis is noted in the thoracic spine. No lytic or blastic bony lesio ns are seen. IMPRESSION: 1. No significant change from 11/04/2020. 2. Cardiomegaly. Diffuse intralobular septal thickening suggests acute versus chronic congestive loaiza ge. Clinical correlation will be required. 3. There is marked dilatation of the pulmonary trunk, likely representing pulmonary artery hypertensi on. 4. Emphysema. 5. Trace right pleural effusion. 6. Mediastinal lymphadenopathy is similar to previous. 7. There are 2 subcentimeter pulmonary nodules measuring up to 9 mm. These have only modestly increas ed in size dating back to 2010. 8. Additional findings as above. ACT 112: Negative or not required by law. Electronically signed by: Jame Batres M.D. 11/10/2020 4:49 PM
[2020-11-10] MEDS: oxyCODONE HCL IR 5 MG TAB (IMMEDIATE RELEASE) PO PRN (18:14)
[2020-11-10] MEDS ORDERED: NURSING DECISION MEDICATION ONE (19:16)
[2020-11-10] MEDS ORDERED: COUGH DROP (SUGAR FREE) LOZ 24 LOZ/1 BOX BUCCAL PRN (19:29)
[2020-11-10] MEDS: MELATONIN 3 MG TAB PO SCH (21:52)
[2020-11-10] MEDS: CETIRIZINE HCL 10 MG TABLET PO SCH (21:52)
[2020-11-10] MEDS: ZOLPIDEM TARTRATE 5 MG TAB PO SCH (21:52)
[2020-11-10] MEDS: ATORVASTATIN 40 MG TAB PO SCH (21:53)
[2020-11-10] MEDS: traZODone HCL 100 MG TAB PO SCH (21:53)
[2020-11-10] MEDS: AMITRIPTYLINE HCL 50 MG TAB PO SCH (21:54)
[2020-11-11] MEDS: CHECK fentaNYL PATCH PLACEMENT SCH ×4 (00:03→23:56)
[2020-11-11] MEDS: oxyCODONE HCL IR 5 MG TAB (IMMEDIATE RELEASE) PO PRN (00:03)
[2020-11-11] MEDS: IPRATROPIUM BROMIDE NEB SOLN 0.02% 2.5 ML VIAL INH SCH ×4 (01:17→19:12)
[2020-11-11] MEDS: LEVALBUTEROL 1.25MG/0.5ML NEB INH SCH ×4 (01:17→19:12)
[2020-11-11 06:07] LABS: INR 1.8 (0.9-1.1); Prothrombin Time 17.4 Seconds (9.0-12.0)
[2020-11-11 06:33] LABS: Calcium 9.1 mg/dl (8.5-10.1); Creatinine Clr Calc Pharmacy 42.3 ml/min; Est GFR (Non-African American) 34.5
[2020-11-11] MEDS: FLUTICASONE/VILANTEROL 200/25MCG 14 PUFFS/INHALER INH SCH (08:25)
[2020-11-11] MEDS: DOCUSATE SODIUM 100 MG CAP PO SCH ×2 (08:25→22:26)
[2020-11-11] MEDS: CARBAMIDE PEROXIDE 6.5% 15 ML BTL OT SCH ×2 (08:25→22:25)
[2020-11-11] MEDS: dilTIAZem HCL 240 MG CAPCR PO SCH (08:25)
[2020-11-11] MEDS: FUROSEMIDE 40 MG in SYRINGE 0 ML IV SCH ×2 (08:26→16:10)
[2020-11-11] MEDS: POTASSIUM CHLORIDE CRTAB 20 MEQ TABCR PO SCH ×3 (08:26→22:28)
[2020-11-11] MEDS: POLYETHYLENE (MIRALAX) 17 GM PACK PO SCH (08:26)
[2020-11-11] MEDS: MULTIVITAMIN TAB PO SCH (08:26)
[2020-11-11] MEDS: NICOTINE 14 MG/24 HR PATCH TD SCH (08:26)
[2020-11-11] MEDS: UMECLIDINIUM BROMIDE 62.5MCG/BLISTER 7 PUFFS/INHALER INH SCH (08:26)
[2020-11-11] MEDS: VENLAFAXINE HCL XR 75 MG CAPXR PO SCH (08:26)
[2020-11-11] MEDS: VENLAFAXINE HCL XR 150 MG CAPXR PO SCH (08:26)
[2020-11-11] MEDS: GABAPENTIN 800 MG TAB PO SCH ×2 (08:26→22:30)
[2020-11-11] MEDS: METOPROLOL SUCC 50MG EXT REL TAB PO SCH ×2 (08:26→22:32)
[2020-11-11] MEDS: amLODIPine BESYLATE 5 MG TAB PO SCH (08:26)
[2020-11-11] MEDS: INSULIN ASPART 100 UNITS/ML 3 ML PEN SC SCH ×4 (08:27→20:22)
[2020-11-11] MEDS: INSULIN GLARGINE SOLOSTAR 100 UNITS/ML 3 ML PEN SC SCH ×2 (08:27→20:21)
[2020-11-11] MEDS: METHOCARBAMOL 750 MG TABLET PO SCH ×3 (08:27→22:31)
[2020-11-11] MEDS: CHOLECALCIFEROL 1,000 UNITS 25 MCG TAB PO SCH (08:27)
[2020-11-11] MEDS: PANTOprazole 40 MG TAB PO SCH ×2 (08:27→22:30)
[2020-11-11] MEDS: fentaNYL 50 MCG/HR TDSY TD SCH (12:16)
[2020-11-11] MEDS: METOPROLOL TARTRATE 1 MG/ML VIAL IV PRN (12:16)
[2020-11-11] MEDS ORDERED: WARFARIN SOD 5 MG TAB PO SCH (16:00)
--- NOTE | 2020-11-11 16:24 | Cardiology Progress Note ---
Date of Service November 11, 2020 Assessment & Plan (1) Atrial flutter: (2) Chronic respiratory failure with hypoxia, on home oxygen therapy: (3) Acute on chronic diastolic (congestive) heart failure: Report of echocardiogram dated 07/02/2020 describes Monell physiology with flattening of the interventricular septum consistent with right ventricular pressure overload. Left ventricular ejection fraction was normal at 65 to 70% at that time. A mitral valve annuloplasty ring was noted with no mitral valve stenosis and mild mitral regurgitation. Continue current diuretic therapy. Patient has respiratory insufficiency at baseline and chronic changes noted in lung mills on chest CT. Perhaps she is still having residual post COVID-19 symptoms. INR 1.8 today. Continue coumadin and check INR tomorrow, if INR below 2 tomorrow , will need to consider bridge therapy. Based one exam, I do not think cardioversion would be effective at this time, and she would likely lapse back in to AF / AFL. Admission and Anticipated Discharge Date Admission Date: November 09, 2020 Neha Chung ss seen in cardiology follow-up. She notes shortness of breath with minimal exertion. Physical Exam Physical Exam: Temp Pulse Resp BP Pulse Ox 36.8 C 110 H 18 130/74 93 11/11/20 15:38 11/11/20 15:38 11/11/20 15:38 11/11/20 15:38 11/11/20 15:38 Constitutional: Chronically ill in appearance Respiratory: Coarse breath sounds throughout the mid lung mills, no rales Cardiovascular: Rate/Rhythm: + tachycardic and + irregularly irregular Extremities: no edema Gastrointestinal (Abdomen): normal bowel sounds, soft, nontender, no hepatosplenomegaly Neurologic: PERRL, EOMI, accommodation nl, no face palsy, no dysarthria Results & Data ([facility]) Vital Signs (Past 12 Hours) Vital Signs Temp Pulse Pulse Resp BP BP BP 11/11/20 15:38 36.8 C 110 H 18 130/74 11/11/20 15:27 115 H 11/11/20 12:16 129 H 114/59 L 11/11/20 11:59 120 H 20 11/11/20 11:48 36.8 C 116 H 20 114/59 L 11/11/20 07:24 36.6 C 109 H 20 99/64 L 11/11/20 07:09 129 H Pulse Ox 02/27/21 15:38 93 11/11/20 15:27 11/11/20 12:16 11/11/20 11:59 96 11/11/20 11:48 93 11/11/20 07:24 92 11/11/20 07:09 Laboratory Results Coagulation INR 11/11/2020 1.8, had been 3.3 yesterday. 11/11/20 Range/Units 05:21 PT 17.4 H (9.0-12.0) Seconds Comprehensive Metabolic Panel 11/11/20 Range/Units 05:21 Sodium 140 (136-145) mmol/L Potassium 5.0 (3.5-5.1) mmol/L Chloride 101 (98-107) mmol/L Carbon Dioxide 35 H (21-32) mmol/L BUN 27 H (7-18) mg/dl Creatinine 1.57 H (0.6-1.2) mg/dl Glucose 112 H (70-99) mg/dl Calcium 9.1 (8.5-10.1) mg/dl Intake and Output 11/11/20 11/11/20 11/11/20 06:59 14:59 22:59 Intake Total 540 / 540 Output Total 2099 Balance -1560 / -1560 Intake: Oral 540 / 540 Output: Urine Amount (Catheter) 2099 Sinclair/Indwelling 2099
--- NOTE | 2020-11-11 16:45 | Hospitalist Progress Note ---
Date of Service November 11, 2020 Assessment & Plan (1) Chest pain: (2) Palpitation: SOB Fluid Overload. Acute on chronic diastolic CHF per Admitting Service notes: Pt is 65 y/o F with PMH DM II, HTN, HLD, hypothyroidism, chronic respiratory failure with hypoxia on 2L O2, DARIUS on CPAP, COPD, paroxysmal atrial fibrillation, venous thrombosis, CKD III< Lynn's esophagus, chronic pain, anemia, tobacco use disorder, h/o mitral valve repair, depression presented to ER with c/o CP, SOB. H/O COVID 10/11/20 CXR: Cardiomegaly with pulmonary vascular congestion and unchanged reticular opacities suggestive of pulmonary edema. EKG without significant change Negative troponin ACS ruled out on Lasix 40mg IV q12h negative 8 L so far repeat CXR: simillar CHF pattern vs ILD CT chest wo contrast: 1. No significant change from 11/04/2020. 2. Cardiomegaly. Diffuse intralobular septal thickening suggests acute versus chronic congestive change. Clinical correlation will be required. 3. There is marked dilatation of the pulmonary trunk, likely representing pulmonary artery hypertension. 4. Emphysema. 5. Trace right pleural effusion. 6. Mediastinal lymphadenopathy is similar to previous. 7. There are 2 subcentimeter pulmonary nodules measuring up to 9 mm. These have only modestly increased in size dating back to 2010. 8. Additional findings as above. continue IV Lasix 40mg q12h Nebs q6h, Incentive Spirometry and Flutter Valve monitor crea monitor closely Chronic respiratory failure with hypoxia on oxygen 2 liters. COPD -at baseline 2 L -Continue Breo H/O COVID-19 diagnosed on 10/11/2020 -Finished steroids Headache right sided OLSON/ear ache Unable to fully visualize TM secondary to cerumen -Debrox drops -resolved Paroxysmal atrial fibrillation On Coumadin INR: 1.8 -continue Coumadin -INR daily -Continue diltiazem, metoprolol HTN -Continue diltiazem, metoprolol, Amlodipine DM II A1c: 8.3 on 10/21/20 -Hold home meds -Basal bolus insulin per protocol adjusted ISS to prevent hypoglycemia CKD III Cr: 1.6. -At baseline -Monitor renal functions while on IV Lasix Sleep apnea -CPAP at bedtime Anxiety and depression -Continue home meds Chronic pain -Continue fentanyl patch, oxycodone prn GERD -Continue PPI DVT Prophylaxis -coumadin Disposition pending lives at home will order PT/OT eval (3) Headache: Admission and Anticipated Discharge Date Admission Date: November 09, 2020 Subjective ff up for acute CHF exacerbation seen resting in bed, comfortable on 2 L NC- baseline states she feels somewhat better today still has some mild dyspnea no cough, fever/chills no chest pain, palpitations, dizziness no other symptoms Review of Systems Review of Systems: All systems reviewed & are unremarkable except as noted in Subjective Physical Exam Physical Exam: General- oriented x 3, not in distress, speaks in sentences with no effort or accessory muscle use Eyes- anicteric Neck- no JVD Lungs- mild rales at the bases, no wheezing good air entry BL Heart- normal rate, irregularly irregular rhythm; no murmurs Abdomen- normal bowel sounds, nondistended, soft, nontender Extremities-mild pretibial edema, no calf tenderness Neuro- alert, oriented x 3; no gross focal neurologic deficits Skin- warm & dry Results & Data Results & Data ([facility]) Vital Signs (Past 12 Hours) Vital Signs Temp Pulse Pulse Resp BP BP BP 11/11/20 15:38 36.8 C 110 H 18 130/74 11/11/20 15:27 115 H 11/11/20 12:16 129 H 114/59 L 11/11/20 11:59 120 H 20 11/11/20 11:48 36.8 C 116 H 20 114/59 L 11/11/20 07:24 36.6 C 109 H 20 99/64 L 11/11/20 07:09 129 H Pulse Ox 11/11/20 15:38 93 11/11/20 15:27 11/11/20 12:16 11/11/20 11:59 96 11/11/20 11:48 93 11/11/20 07:24 92 11/11/20 07:09 all noted and reviewed including below (1) Headache Headache chronicity pattern: unspecified pattern Headache type: unspecified Intractability: not intractable Qualified Code(s): R51.9 - Headache, uns pecified
[2020-11-11] MEDS ORDERED: PROMETHAZINE HCL 6.25 MG in SODIUM CHLORIDE 0.9% 50 ML IV PRN (18:51)
[2020-11-11] MEDS: MELATONIN 3 MG TAB PO SCH (22:25)
[2020-11-11] MEDS: ZOLPIDEM TARTRATE 5 MG TAB PO SCH (22:26)
[2020-11-11] MEDS: traZODone HCL 100 MG TAB PO SCH (22:27)
[2020-11-11] MEDS: AMITRIPTYLINE HCL 50 MG TAB PO SCH (22:28)
[2020-11-11] MEDS: ATORVASTATIN 40 MG TAB PO SCH (22:29)
[2020-11-11] MEDS: CETIRIZINE HCL 10 MG TABLET PO SCH (22:33)
[2020-11-12] MEDS: LEVALBUTEROL 1.25MG/0.5ML NEB INH SCH ×4 (00:51→19:15)
[2020-11-12] MEDS: IPRATROPIUM BROMIDE NEB SOLN 0.02% 2.5 ML VIAL INH SCH ×4 (00:51→19:15)
[2020-11-12 06:20] LABS: INR 1.4 (0.9-1.1); Prothrombin Time 13.9 Seconds (9.0-12.0)
[2020-11-12 06:37] LABS: BUN Creatinine Ratio 23.5 (10-20); Calcium 8.9 mg/dl (8.5-10.1); Creatinine Clr Calc Pharmacy 41.4 ml/min; Est GFR (African American) 39.4; Potassium 4.5 mmol/L (3.5-5.1)
[2020-11-12] MEDS: NICOTINE 14 MG/24 HR PATCH TD SCH (08:22)
[2020-11-12] MEDS: GABAPENTIN 800 MG TAB PO SCH ×2 (08:22→21:33)
[2020-11-12] MEDS: CHOLECALCIFEROL 1,000 UNITS 25 MCG TAB PO SCH (08:23)
[2020-11-12] MEDS: dilTIAZem HCL 240 MG CAPCR PO SCH (08:23)
[2020-11-12] MEDS: DOCUSATE SODIUM 100 MG CAP PO SCH ×2 (08:23→21:37)
[2020-11-12] MEDS: amLODIPine BESYLATE 5 MG TAB PO SCH (08:23)
[2020-11-12] MEDS: VENLAFAXINE HCL XR 150 MG CAPXR PO SCH (08:23)
[2020-11-12] MEDS: PANTOprazole 40 MG TAB PO SCH ×2 (08:23→21:36)
[2020-11-12] MEDS: MULTIVITAMIN TAB PO SCH (08:23)
[2020-11-12] MEDS: POTASSIUM CHLORIDE CRTAB 20 MEQ TABCR PO SCH ×3 (08:23→21:32)
[2020-11-12] MEDS: VENLAFAXINE HCL XR 75 MG CAPXR PO SCH (08:23)
[2020-11-12] MEDS: METHOCARBAMOL 750 MG TABLET PO SCH ×3 (08:23→21:34)
[2020-11-12] MEDS: CARBAMIDE PEROXIDE 6.5% 15 ML BTL OT SCH ×2 (08:24→21:36)
[2020-11-12] MEDS: CHECK fentaNYL PATCH PLACEMENT SCH ×2 (08:24→15:21)
[2020-11-12] MEDS: POLYETHYLENE (MIRALAX) 17 GM PACK PO SCH (08:24)
[2020-11-12] MEDS: UMECLIDINIUM BROMIDE 62.5MCG/BLISTER 7 PUFFS/INHALER INH SCH (08:24)
[2020-11-12] MEDS: FLUTICASONE/VILANTEROL 200/25MCG 14 PUFFS/INHALER INH SCH (08:24)
[2020-11-12] MEDS: INSULIN GLARGINE SOLOSTAR 100 UNITS/ML 3 ML PEN SC SCH ×2 (08:25→21:42)
[2020-11-12] MEDS: INSULIN ASPART 100 UNITS/ML 3 ML PEN SC SCH ×4 (08:25→21:43)
[2020-11-12] MEDS: METOPROLOL SUCC 50MG EXT REL TAB PO SCH ×2 (08:25→21:35)
[2020-11-12] MEDS: FUROSEMIDE 40 MG in SYRINGE 0 ML IV SCH ×2 (08:54→17:06)
[2020-11-12] MEDS ORDERED: Heparin IV Adult Wt-Based Standard *NO* Bolus Protocol IV SCH (13:21)
--- NOTE | 2020-11-12 13:22 | Cardiology Progress Note ---
Date of Service November 12, 2020 Assessment & Plan (1) Atrial flutter: Patient with multifactorial shortness of breath due to COPD/chronic respiratory failure and recent COVID-19 pneumonia, chronic diastolic heart failure with volume overload. Fluid balance is -4 L on her current dose of furosemide 40 mg IV twice daily. Creatinine stable at 1.59. Patient with ongoing atrial fibrillation/atrial flutter, with mildly elevated ventricular response in the 120s. I do not think her heart rates will improve with it sinus rhythm can be achieved until her respiratory status improves further. As noted her INR is now subtherapeutic, with INR level of 1.4. We will proceed with heparin bridge. Continue Coumadin. Admission and Anticipated Discharge Date Admission Date: November 09, 2020 Neha Chung is seen in follow up of her chief complaint of shortness of breath.She notes cough productive of mild yellow sputum. Physical Exam Physical Exam: Temp Pulse Resp BP Pulse Ox 36.5 C 122 H 20 109/71 95 11/12/20 11:00 11/12/20 11:00 11/12/20 11:00 11/12/20 11:00 11/12/20 11:00 Constitutional: WD/WN, vitals as above Respiratory: Auscultation: + rhonchi Cardiovascular: Rate/Rhythm: + tachycardic Heart Sounds: no murmur Extremities: no edema Gastrointestinal (Abdomen): normal bowel sounds, soft, nontender, no hepatosplenomegaly Neurologic: PERRL, EOMI, accommodation nl, no face palsy, no dysarthria Results & Data ([facility]) Vital Signs (Past 12 Hours) Vital Signs Temp Pulse Resp BP BP Pulse Ox 11/12/20 11:00 36.5 C 122 H 20 109/71 95 11/12/20 07:53 108 H 18 95 11/12/20 07:38 36.5 C 117 H 20 103/71 95 11/12/20 03:03 36.7 C 115 H 19 100/64 98
[2020-11-12] MEDS: HEPARIN SODIUM/DEXTROSE 25,000 UNITS/500 ML BAG IV SCH (14:51)
[2020-11-12] MEDS: WARFARIN SOD 7.5 MG TAB PO SCH (15:16)
--- NOTE | 2020-11-12 15:54 | Hospitalist Progress Note ---
Date of Service November 12, 2020 Assessment & Plan (1) Chest pain: (2) Palpitation: SOB Fluid Overload. Acute on chronic diastolic CHF per Admitting Service notes: Pt is 65 y/o F with PMH DM II, HTN, HLD, hypothyroidism, chronic respiratory failure with hypoxia on 2L O2, DARIUS on CPAP, COPD, paroxysmal atrial fibrillation, venous thrombosis, CKD III< Lynn's esophagus, chronic pain, anemia, tobacco use disorder, h/o mitral valve repair, depression presented to ER with c/o CP, SOB. H/O COVID 10/11/20 CXR: Cardiomegaly with pulmonary vascular congestion and unchanged reticular opacities suggestive of pulmonary edema. EKG without significant change Negative troponin ACS ruled out on Lasix 40mg IV q12h negative 10 L so far repeat CXR: simillar CHF pattern vs ILD CT chest wo contrast: 1. No significant change from 11/04/2020. 2. Cardiomegaly. Diffuse intralobular septal thickening suggests acute versus chronic congestive change. Clinical correlation will be required. 3. There is marked dilatation of the pulmonary trunk, likely representing pulmonary artery hypertension. 4. Emphysema. 5. Trace right pleural effusion. 6. Mediastinal lymphadenopathy is similar to previous. 7. There are 2 subcentimeter pulmonary nodules measuring up to 9 mm. These have only modestly increased in size dating back to 2010. 8. Additional findings as above. continue IV Lasix 40mg q12h Nebs q6h, Incentive Spirometry and Flutter Valve monitor crea monitor closely Chronic respiratory failure with hypoxia on oxygen 2 liters. COPD -at baseline 2 L -Continue Breo H/O COVID-19 diagnosed on 10/11/2020 -Finished steroids Headache right sided OLSON/ear ache Unable to fully visualize TM secondary to cerumen -Debrox drops -resolved Paroxysmal atrial fibrillation On Coumadin INR: 1.4 - coumadin 7.5mg po daily + heparin drip -INR daily -Continue diltiazem, metoprolol HTN -Continue diltiazem, metoprolol, Amlodipine DM II A1c: 8.3 on 10/21/20 -Hold home meds -Basal bolus insulin per protocol adjusted ISS to prevent hypoglycemia CKD III Cr: 1.6. -At baseline -Monitor renal functions while on IV Lasix Sleep apnea -CPAP at bedtime Anxiety and depression -Continue home meds Chronic pain -Continue fentanyl patch, oxycodone prn GERD -Continue PPI DVT Prophylaxis -coumadin Disposition pending lives at home will order PT/OT elena (3) Headache: Admission and Anticipated Discharge Date Admission Date: November 09, 2020 Subjective ff up for volume overload, CHF exacerbation, etc seen resting in bed, comfortable on 2 L NC comfortable, in good spirits states she feels improved today breathing improving no chest pain, palpitations, dizziness, nausea no other symptoms Review of Systems Review of Systems: All systems reviewed & are unremarkable except as noted in Subjective Physical Exam Physical Exam: General- oriented x 2, not in distress, speaks in sentences with no effort or accessory muscle use Eyes- anicteric Neck- no JVD Lungs- mild rales at the bases- improving Heart- normal rate, irregularly irregular rhythm; no murmurs Abdomen- normal bowel sounds, nondistended, soft, nontender Extremities- mild pretibial edema, no calf tenderness Neuro- alert, oriented x 2; no gross focal neurologic deficits Skin- warm & dry Results & Data Results & Data ([facility]) Vital Signs (Past 12 Hours) Vital Signs Temp Pulse Resp BP BP Pulse Ox 11/12/20 15:43 36.8 C 104 H 20 118/68 90 11/12/20 13:53 120 H 18 92 11/12/20 11:00 36.5 C 122 H 20 109/71 95 11/12/20 07:53 108 H 18 95 11/12/20 07:38 36.5 C 117 H 20 103/71 95 Laboratory Results Laboratory Results - last 24 hr 11/11/20 11/12/20 11/12/20 20:09 05:23 05:23 PT 13.9 H INR 1.4 H Sodium 142 Potassium 4.5 Chloride 102 Carbon Dioxide 36 H Anion Gap 3.0 BUN 37 H Creatinine 1.59 H Est Cr Clr Drug Dosing 41.4 Est GFR ( Amer) 39.4 Est GFR (Non-Af Amer) 34.0 BUN/Creatinine Ratio 23.5 H Glucose 127 H POC Glucose 116 H Calcium 8.9 11/12/20 11/12/20 11/12/20 07:23 11:33 16:42 PT INR Sodium Potassium Chloride Carbon Dioxide Anion Gap BUN Creatinine Est Cr Clr Drug Dosing Est GFR ( Amer) Est GFR (Non-Af Amer) BUN/Creatinine Ratio Glucose POC Glucose 156 H 240 H 166 H Calcium (1) Headache Headache chronicity pattern: unspecified pattern Headache type: unspecified Intractability: not intractable Qualified Code(s): R51.9 - Headache, unspecified
[2020-11-12 21:26] LABS: Partial Thromboplastin Ratio 1.6; Partial Thromboplastin Time 42.5 Seconds (21.0-31.0)
[2020-11-12] MEDS: CETIRIZINE HCL 10 MG TABLET PO SCH (21:34)
[2020-11-12] MEDS: ATORVASTATIN 40 MG TAB PO SCH (21:35)
[2020-11-12] MEDS: AMITRIPTYLINE HCL 50 MG TAB PO SCH (21:35)
[2020-11-12] MEDS: traZODone HCL 100 MG TAB PO SCH (21:36)
[2020-11-12] MEDS: ZOLPIDEM TARTRATE 5 MG TAB PO SCH (21:40)
[2020-11-12] MEDS: MELATONIN 3 MG TAB PO SCH (21:40)
[2020-11-13] MEDS: CHECK fentaNYL PATCH PLACEMENT SCH ×3 (00:14→16:19)
[2020-11-13] MEDS: LEVALBUTEROL 1.25MG/0.5ML NEB INH SCH ×4 (00:51→19:27)
[2020-11-13] MEDS: IPRATROPIUM BROMIDE NEB SOLN 0.02% 2.5 ML VIAL INH SCH ×4 (00:51→19:27)
[2020-11-13 03:56] LABS: INR 1.6 (0.9-1.1); Partial Thromboplastin Ratio 2.2; Partial Thromboplastin Time 57.9 Seconds (21.0-31.0); Prothrombin Time 15.7 Seconds (9.0-12.0)
[2020-11-13 03:57] LABS: BUN Creatinine Ratio 23.4 (10-20); Creatinine Clr Calc Pharmacy 40.6 ml/min; Est GFR (African American) 38.5; Est GFR (Non-African American) 33.2
[2020-11-13] MEDS: ACETAMINOPHEN 325 MG TAB PO PRN (07:03)
[2020-11-13] MEDS: INSULIN ASPART 100 UNITS/ML 3 ML PEN SC SCH ×4 (08:17→20:49)
[2020-11-13] MEDS: HEPARIN SODIUM/DEXTROSE 25,000 UNITS/500 ML BAG IV SCH (08:18)
[2020-11-13] MEDS: FLUTICASONE/VILANTEROL 200/25MCG 14 PUFFS/INHALER INH SCH (08:18)
[2020-11-13] MEDS: UMECLIDINIUM BROMIDE 62.5MCG/BLISTER 7 PUFFS/INHALER INH SCH (08:18)
[2020-11-13] MEDS: METOPROLOL SUCC 50MG EXT REL TAB PO SCH ×2 (08:19→20:48)
[2020-11-13] MEDS: POLYETHYLENE (MIRALAX) 17 GM PACK PO SCH (08:19)
[2020-11-13] MEDS: FUROSEMIDE 40 MG in SYRINGE 0 ML IV SCH ×2 (08:19→16:09)
[2020-11-13] MEDS: CHOLECALCIFEROL 1,000 UNITS 25 MCG TAB PO SCH (08:19)
[2020-11-13] MEDS: amLODIPine BESYLATE 5 MG TAB PO SCH (08:19)
[2020-11-13] MEDS: CALCITRIOL 0.25 MCG CAPSULE PO SCH (08:19)
[2020-11-13] MEDS: dilTIAZem HCL 240 MG CAPCR PO SCH (08:19)
[2020-11-13] MEDS: VENLAFAXINE HCL XR 75 MG CAPXR PO SCH (08:19)
[2020-11-13] MEDS: PANTOprazole 40 MG TAB PO SCH ×2 (08:19→20:48)
[2020-11-13] MEDS: VENLAFAXINE HCL XR 150 MG CAPXR PO SCH (08:20)
[2020-11-13] MEDS: GABAPENTIN 800 MG TAB PO SCH ×2 (08:20→20:48)
[2020-11-13] MEDS: MULTIVITAMIN TAB PO SCH (08:20)
[2020-11-13] MEDS: POTASSIUM CHLORIDE CRTAB 20 MEQ TABCR PO SCH ×3 (08:20→20:48)
[2020-11-13] MEDS: DOCUSATE SODIUM 100 MG CAP PO SCH ×2 (08:20→20:48)
[2020-11-13] MEDS: NICOTINE 14 MG/24 HR PATCH TD SCH (08:20)
[2020-11-13] MEDS: METHOCARBAMOL 750 MG TABLET PO SCH ×3 (08:20→20:48)
[2020-11-13] MEDS: INSULIN GLARGINE SOLOSTAR 100 UNITS/ML 3 ML PEN SC SCH ×2 (08:21→20:49)
[2020-11-13] MEDS ORDERED: MICONAZOLE NITRATE POWDER 43 GM EXT PRN (11:21)
--- NOTE | 2020-11-13 14:52 | Cardiology Progress Note ---
Date of Service November 13, 2020 Assessment & Plan (1) Atrial flutter: (2) COPD exacerbation: (3) Chronic respiratory failure: Continue furosemide 40 mg IV twice daily. For rate control, continue metoprolol succinate 100 mg BID and Diltiazem 240 mg. INR 1.6. Continue heparin infusion, coumadin dose increased to 7.5 mg daily on 11/12. Admission and Anticipated Discharge Date Admission Date: November 09, 2020 Subjective Patient seen in cardiology follow-up. She notes improved energy today. She was able to clean up in the bathroom this morning and although she noted some degree of shortness of breath she felt much improved than what she has felt previously. Reveals ongoing consistent with atrial flutter in the range of 110 to 120 bpm. Physical Exam Physical Exam: Temp Pulse Resp BP Pulse Ox 36.5 C 79 20 131/85 95 11/13/20 11:46 11/13/20 13:01 11/13/20 13:01 11/13/20 11:46 11/13/20 13:01 Constitutional: WD/WN, vitals as above Respiratory: Coarse breath sounds bilaterally Cardiovascular: Rate/Rhythm: + tachycardic Heart Sounds: + murmur (I/ SM) Gastrointestinal (Abdomen): normal bowel sounds, soft, nontender, no hepatosplenomegaly Neurologic: PERRL, EOMI, accommodation nl, no face palsy, no dysarthria Results & Data ([facility]) Vital Signs (Past 12 Hours) Vital Signs Temp Pulse Resp BP Pulse Ox 11/13/20 13:01 79 20 95 11/13/20 11:46 36.5 C 100 H 22 131/85 96 11/13/20 07:41 122 H 20 95 11/13/20 07:35 36.6 C 119 H 20 111/74 94 11/13/20 04:00 36.8 C 119 H 18 111/83 96
[2020-11-13] MEDS: WARFARIN SOD 7.5 MG TAB PO SCH (16:08)
--- NOTE | 2020-11-13 19:49 | Hospitalist Progress Note ---
Date of Service Delayed entry Date of service noted below November 13, 2020 Assessment & Plan (1) Chest pain: (2) Palpitation: SOB Fluid Overload. Acute on chronic diastolic CHF per Admitting Service notes: Pt is 65 y/o F with PMH DM II, HTN, HLD, hypothyroidism, chronic respiratory failure with hypoxia on 2L O2, DARIUS on CPAP, COPD, paroxysmal atrial fibrillation, venous thrombosis, CKD III< Lynn's esophagus, chronic pain, anemia, tobacco use disorder, h/o mitral valve repair, depression presented to ER with c/o CP, SOB. H/O COVID 10/11/20 CXR: Cardiomegaly with pulmonary vascular congestion and unchanged reticular opacities suggestive of pulmonary edema. EKG without significant change Negative troponin ACS ruled out on Lasix 40mg IV q12h Continues to diurese well, renal function stable repeat CXR: simillar CHF pattern vs ILD CT chest wo contrast: 1. No significant change from 11/04/2020. 2. Cardiomegaly. Diffuse intralobular septal thickening suggests acute versus chronic congestive change. Clinical correlation will be required. 3. There is marked dilatation of the pulmonary trunk, likely representing pulmonary artery hypertension. 4. Emphysema. 5. Trace right pleural effusion. 6. Mediastinal lymphadenopathy is similar to previous. 7. There are 2 subcentimeter pulmonary nodules measuring up to 9 mm. These have only modestly increased in size dating back to 2010. 8. Additional findings as above. continue IV Lasix 40mg q12h Nebs q6h, Incentive Spirometry and Flutter Valve monitor crea monitor closely Chronic respiratory failure with hypoxia on oxygen 2 liters. 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 -At baseline -Monitor renal functions while on IV Lasix Sleep apnea -CPAP at bedtime Anxiety and depression -Continue home meds Chronic pain -Continue fentanyl patch, oxycodone prn GERD -Continue PPI DVT Prophylaxis -coumadin Disposition pending lives at home PT OT evaluation, may need inpatient rehab plan of care discussed with patient all questions answered She is understanding, agreeable, comfortable with the plan of care Admission and Anticipated Discharge Date Admission Date: November 09, 2020 Subjective Follow-up for volume overload, acute CHF exacerbation, atrial fibrillation, etc. Seen resting in bed, comfortable, not in distress, in good spirits States she continues to feel better Breathing continues to improve No cough, shortness of breath, palpitations, dizziness No bleeding No other symptoms Review of Systems Review of Systems: All systems reviewed & are unremarkable except as noted in Subjective Physical Exam Physical Exam: General- oriented x 3, not in distress, speaks in sentences with no effort or accessory muscle use Eyes- anicteric Neck-mild JVD Lungs-mild crackles at the bases, no wheezing, good air entry bilaterally Heart- normal rate, irregularly irregular rhythm; no murmurs Abdomen- normal bowel sounds, nondistended, soft, nontender Extremities-mild pretibial edema, no calf tenderness Neuro- alert, oriented x 3; no gross focal neurologic deficits Skin- warm & dry Results & Data Results & Data ([facility]) Vital Signs (Past 12 Hours) Vital Signs Temp Pulse Pulse Resp BP Pulse Ox 11/13/20 19:29 36.6 C 116 H 20 116/79 96 11/13/20 16:00 119 H 11/13/20 14:52 36.8 C 120 H 20 130/70 94 11/13/20 13:01 79 20 95 11/13/20 11:46 36.5 C 100 H 22 131/85 96 Laboratory Results Laboratory Results - last 24 hr 11/13/20 11/13/20 11/14/20 20:14 23:51 06:42 PT INR APTT PTT Ratio Sodium 140 Potassium 5.3 H Chloride 104 Carbon Dioxide 32 Anion Gap 4.0 BUN 41 H Creatinine 1.67 H Est Cr Clr Drug Dosing 38.9 Est GFR ( Amer) 37.1 Est GFR (Non-Af Amer) 32.0 BUN/Creatinine Ratio 24.5 H Glucose 171 H POC Glucose 130 H 186 H Calcium 9.1 11/14/20 11/14/2011/14/21 06:42 07:53 11:31 PT 30.3 H INR 3.3 H APTT 83.9 H* PTT Ratio 3.2 Sodium Potassium Chloride Carbon Dioxide Anion Gap BUN Creatinine Est Cr Clr Drug Dosing Est GFR ( Amer) Est GFR (Non-Af Amer) BUN/Creatinine Ratio Glucose POC Glucose 144 H 248 H Calcium 11/14/20 11/14/20 13:43 16:17 PT INR APTT 72.0 H* PTT Ratio 2.7 Sodium Potassium Chloride Carbon Dioxide Anion Gap BUN Creatinine Est Cr Clr Drug Dosing Est GFR ( Amer) Est GFR (Non-Af Amer) BUN/Creatinine Ratio Glucose POC Glucose 149 H Calcium
[2020-11-13] MEDS: CETIRIZINE HCL 10 MG TABLET PO SCH (20:48)
[2020-11-13] MEDS: ATORVASTATIN 40 MG TAB PO SCH (20:48)
[2020-11-13] MEDS: AMITRIPTYLINE HCL 50 MG TAB PO SCH (20:48)
[2020-11-13] MEDS: traZODone HCL 100 MG TAB PO SCH (20:48)
[2020-11-13] MEDS: MELATONIN 3 MG TAB PO SCH (20:48)
[2020-11-13] MEDS: ZOLPIDEM TARTRATE 5 MG TAB PO SCH (20:48)
[2020-11-14] MEDS: IPRATROPIUM BROMIDE NEB SOLN 0.02% 2.5 ML VIAL INH SCH ×4 (00:13→19:36)
[2020-11-14] MEDS: LEVALBUTEROL 1.25MG/0.5ML NEB INH SCH ×4 (00:13→19:36)
[2020-11-14] MEDS: CHECK fentaNYL PATCH PLACEMENT SCH ×3 (00:14→16:56)
[2020-11-14] MEDS: HEPARIN SODIUM/DEXTROSE 25,000 UNITS/500 ML BAG IV SCH ×3 (04:47→08:15)
[2020-11-14 07:29] LABS: INR 3.3 (0.9-1.1); Partial Thromboplastin Ratio 3.2; Prothrombin Time 30.3 Seconds (9.0-12.0)
[2020-11-14 07:35] LABS: BUN Creatinine Ratio 24.5 (10-20); Calcium 9.1 mg/dl (8.5-10.1); Creatinine Clr Calc Pharmacy 38.9 ml/min; Est GFR (African American) 37.1; Potassium 5.3 mmol/L (3.5-5.1)
[2020-11-14 07:42] LABS: Partial Thromboplastin Time 83.9 Seconds (21.0-31.0)
[2020-11-14] MEDS: INSULIN ASPART 100 UNITS/ML 3 ML PEN SC SCH ×4 (08:08→21:36)
[2020-11-14] MEDS: INSULIN GLARGINE SOLOSTAR 100 UNITS/ML 3 ML PEN SC SCH ×2 (08:08→21:34)
[2020-11-14] MEDS: UMECLIDINIUM BROMIDE 62.5MCG/BLISTER 7 PUFFS/INHALER INH SCH (08:10)
[2020-11-14] MEDS: POLYETHYLENE (MIRALAX) 17 GM PACK PO SCH (08:10)
[2020-11-14] MEDS: FLUTICASONE/VILANTEROL 200/25MCG 14 PUFFS/INHALER INH SCH (08:10)
[2020-11-14] MEDS: GABAPENTIN 800 MG TAB PO SCH ×2 (08:11→21:39)
[2020-11-14] MEDS: NICOTINE 14 MG/24 HR PATCH TD SCH (08:11)
[2020-11-14] MEDS: CHOLECALCIFEROL 1,000 UNITS 25 MCG TAB PO SCH (08:11)
[2020-11-14] MEDS: amLODIPine BESYLATE 5 MG TAB PO SCH (08:11)
[2020-11-14] MEDS: VENLAFAXINE HCL XR 150 MG CAPXR PO SCH (08:11)
[2020-11-14] MEDS: MULTIVITAMIN TAB PO SCH (08:11)
[2020-11-14] MEDS: METOPROLOL SUCC 50MG EXT REL TAB PO SCH ×2 (08:12→21:39)
[2020-11-14] MEDS: VENLAFAXINE HCL XR 75 MG CAPXR PO SCH (08:12)
[2020-11-14] MEDS: POTASSIUM CHLORIDE CRTAB 20 MEQ TABCR PO SCH (08:12)
[2020-11-14] MEDS: METHOCARBAMOL 750 MG TABLET PO SCH ×3 (08:12→21:39)
[2020-11-14] MEDS: FUROSEMIDE 40 MG in SYRINGE 0 ML IV SCH ×2 (08:12→17:37)
[2020-11-14] MEDS: PANTOprazole 40 MG TAB PO SCH ×2 (08:12→21:39)
[2020-11-14] MEDS: dilTIAZem HCL 240 MG CAPCR PO SCH (08:12)
[2020-11-14] MEDS: DOCUSATE SODIUM 100 MG CAP PO SCH ×2 (08:13→21:39)
[2020-11-14] MEDS: fentaNYL 50 MCG/HR TDSY TD SCH (12:18)
[2020-11-14 14:22] LABS: Partial Thromboplastin Ratio 2.7
--- NOTE | 2020-11-14 14:25 | Cardiology Progress Note ---
Date of Service November 14, 2020 Assessment & Plan (1) Atrial flutter: Patient with multifactorial shortness of breath due to COPD/chronic respiratory failure and recent COVID-19 pneumonia, chronic diastolic heart failure with volume overload. Continue furosemide 40 mg IV twice daily. Current creatinine of 1.67 is acceptable. Potassium has trended up to 5.3, therefore oral potassium supplementation has been discontinued. Patient with ongoing atrial fibrillation/atrial flutter, with mildly elevated ventricular response in the 120s. INR now 3.3. Discontinue heparin bridge. Hold Coumadin for now 1.3 and repeat tomorrow. Continue metoprolol and diltiazem for rate control. Patient is a poor candidate for antiarrhythmic therapy given treatment with amitriptyline and her underlying lung disease. Plan for transesophageal echocardiogram guided direct-current cardioversion in 2 days on 11/16/2020 as long as respiratory status continues to improve. (2) COPD exacerbation: (3) Chronic respiratory failure: Admission and Anticipated Discharge Date Admission Date: November 09, 2020 Subjective Ms Minaya is seen in cardiology follow-up of chief complaint of shortness of breath. She notes subjective improvement. She continues to have significant urinary output on IV furosemide 40 mg IV twice daily, with urinary output of 3.5 L thus far today. She notes subjective improvement in her shortness of breath. Telemetry reveals ongoing atrial fibrillation/atrial flutter in the range of 100 120 bpm at rest, and faster with activity. Physical Exam Physical Exam: Temp Pulse Resp BP Pulse Ox 36.5 C 117 H 18 133/87 96 11/14/20 11:53 11/14/20 13:58 11/14/20 13:58 11/14/20 11:53 11/14/20 13:58 Constitutional: WD/WN, vitals as above Respiratory: Mildly diminished breath sounds, the rhonchi noted yesterday and the day before have resolved Cardiovascular: Rate/Rhythm: regular rhythm and + tachycardic Heart Sounds: + murmur (I/ SM) Vessels: no JVD Extremities: no edema Gastrointestinal (Abdomen): normal bowel sounds, soft, nontender, no hepatosplenomegaly Results & Data ([facility]) Vital Signs (Past 12 Hours) Vital Signs Temp Pulse Resp BP Pulse Ox 11/14/20 13:58 117 H 18 96 11/14/20 13:33 93 11/14/20 11:53 36.5 C 110 H 18 133/87 95 11/14/20 07:56 37.2 C 87 20 114/73 91 11/14/20 07:37 111 H 18 93 11/14/20 03:09 36.8 C 113 H 22 91/55 L 93
--- NOTE | 2020-11-14 19:52 | Hospitalist Progress Note ---
Date of Service November 14, 2020 Assessment & Plan (1) Chest pain: (2) Palpitation: SOB Fluid Overload. Acute on chronic diastolic CHF per Admitting Service notes: Pt is 65 y/o F with PMH DM II, HTN, HLD, hypothyroidism, chronic respiratory failure with hypoxia on 2L O2, DARIUS on CPAP, COPD, paroxysmal atrial fibrillation, venous thrombosis, CKD III< Lynn's esophagus, chronic pain, anemia, tobacco use disorder, h/o mitral valve repair, depression presented to ER with c/o CP, SOB. H/O COVID 10/11/20 CXR: Cardiomegaly with pulmonary vascular congestion and unchanged reticular opacities suggestive of pulmonary edema. EKG without significant change Negative troponin repeat CXR: similar CHF pattern vs ILD CT chest wo contrast: 1. No significant change from 11/04/2020. 2. Cardiomegaly. Diffuse intralobular septal thickening suggests acute versus chronic congestive change. Clinical correlation will be required. 3. There is marked dilatation of the pulmonary trunk, likely representing pulmonary artery hypertension. 4. Emphysema. 5. Trace right pleural effusion. 6. Mediastinal lymphadenopathy is similar to previous. 7. There are 2 subcentimeter pulmonary nodules measuring up to 9 mm. These have only modestly increased in size dating back to 2010. 8. Additional findings as above. 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 COPD -at baseline 2 L -Continue Breo H/O COVID-19 diagnosed on 10/11/2020 -Finished steroids Headache right sided OLSON/ear ache Unable to fully visualize TM secondary to cerumen -Debrox drops -resolved Paroxysmal atrial fibrillation On Coumadin INR: 3.3 -Discontinue heparin drip Hold Coumadin for now, may need Coumadin 7.5 and 5 mg alternating daily -INR daily Potassium increased to 240 mg p.o. 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 -At baseline -Monitor renal functions while on IV Lasix Sleep apnea -CPAP at bedtime Anxiety and depression -Continue home meds Chronic pain -Continue fentanyl patch, oxycodone prn GERD -Continue PPI DVT Prophylaxis -coumadin Disposition pending lives at home PT OT evaluation, may need inpatient rehab plan of care discussed with patient all questions answered She is understanding, agreeable, comfortable with the plan of care Admission and Anticipated Discharge Date Admission Date: November 09, 2020 Subjective Follow-up for acute CHF exacerbation, volume overload, etc. Resting in bed, comfortable, not in distress Good spirits, at baseline 2 L of oxygen via nasal cannula States she continues to feel improved Wheezing continues to improve No cough, fevers or chills No chest pain, palpitations, dizziness, no bleeding No other symptoms Review of Systems Review of Systems: All systems reviewed & are unremarkable except as noted in Subjective Physical Exam Physical Exam: General- oriented x 3, not in distress, speaks in sentences with no effort or accessory muscle use Eyes- anicteric Neck- no JVD Lungs-mild rales at the bases, no wheezing, good air entry bilaterally Heart- normal rate, irregularly irregular rhythm; no murmurs Abdomen- normal bowel sounds, nondistended, soft, nontender Extremities- no pretibial edema, no calf tenderness Neuro- alert, oriented x 3; no gross focal neurologic deficits Skin- warm & dry Results & Data Results & Data ([facility]) Vital Signs (Past 12 Hours) Vital Signs Temp Pulse Pulse Resp BP BP Pulse Ox 11/14/20 19:39 118 H 18 98 11/14/20 19:13 120 H 11/14/20 19:12 36.8 C 120 H 18 113/70 96 11/14/20 15:21 36.7 C 116 H 18 108/64 95 11/14/20 13:58 117 H 18 96 11/14/20 13:33 93 11/14/20 11:53 36.5 C 110 H 18 133/87 95 11/14/20 07:56 37.2 C 87 20 114/73 91
[2020-11-14] MEDS: traZODone HCL 100 MG TAB PO SCH (21:39)
[2020-11-14] MEDS: AMITRIPTYLINE HCL 50 MG TAB PO SCH (21:39)
[2020-11-14] MEDS: ZOLPIDEM TARTRATE 5 MG TAB PO SCH (21:39)
[2020-11-14] MEDS: ATORVASTATIN 40 MG TAB PO SCH (21:39)
[2020-11-14] MEDS: CETIRIZINE HCL 10 MG TABLET PO SCH (21:39)
[2020-11-14] MEDS: MELATONIN 3 MG TAB PO SCH (21:45)
[2020-11-15] MEDS: LEVALBUTEROL 1.25MG/0.5ML NEB INH SCH ×4 (00:03→19:34)
[2020-11-15] MEDS: IPRATROPIUM BROMIDE NEB SOLN 0.02% 2.5 ML VIAL INH SCH ×4 (00:03→19:34)
[2020-11-15] MEDS: CHECK fentaNYL PATCH PLACEMENT SCH ×3 (00:41→17:02)
[2020-11-15 07:59] LABS: INR 3.2 (0.9-1.1); Prothrombin Time 29.2 Seconds (9.0-12.0)
[2020-11-15 08:18] LABS: BUN Creatinine Ratio 23.5 (10-20); Calcium 9.6 mg/dl (8.5-10.1); Creatinine Clr Calc Pharmacy 35.8 ml/min; Est GFR (African American) 33.4; Est GFR (Non-African American) 28.8; Potassium 4.5 mmol/L (3.5-5.1)
[2020-11-15] MEDS: METHOCARBAMOL 750 MG TABLET PO SCH ×3 (08:21→20:46)
[2020-11-15] MEDS: GABAPENTIN 800 MG TAB PO SCH ×2 (08:21→20:45)
[2020-11-15] MEDS: POLYETHYLENE (MIRALAX) 17 GM PACK PO SCH (08:22)
[2020-11-15] MEDS: MULTIVITAMIN TAB PO SCH (08:22)
[2020-11-15] MEDS: VENLAFAXINE HCL XR 75 MG CAPXR PO SCH (08:22)
[2020-11-15] MEDS: dilTIAZem HCL 240 MG CAPCR PO SCH (08:22)
[2020-11-15] MEDS: CALCITRIOL 0.25 MCG CAPSULE PO SCH (08:22)
[2020-11-15] MEDS: amLODIPine BESYLATE 5 MG TAB PO SCH (08:22)
[2020-11-15] MEDS: CHOLECALCIFEROL 1,000 UNITS 25 MCG TAB PO SCH (08:22)
[2020-11-15] MEDS: DOCUSATE SODIUM 100 MG CAP PO SCH ×2 (08:22→20:42)
[2020-11-15] MEDS: METOPROLOL SUCC 50MG EXT REL TAB PO SCH ×2 (08:23→20:45)
[2020-11-15] MEDS: NICOTINE 14 MG/24 HR PATCH TD SCH (08:23)
[2020-11-15] MEDS: PANTOprazole 40 MG TAB PO SCH ×2 (08:23→20:46)
[2020-11-15] MEDS: VENLAFAXINE HCL XR 150 MG CAPXR PO SCH (08:23)
[2020-11-15] MEDS: FLUTICASONE/VILANTEROL 200/25MCG 14 PUFFS/INHALER INH SCH (08:24)
[2020-11-15] MEDS: FUROSEMIDE 40 MG in SYRINGE 0 ML IV SCH (08:24)
[2020-11-15] MEDS: UMECLIDINIUM BROMIDE 62.5MCG/BLISTER 7 PUFFS/INHALER INH SCH (08:24)
[2020-11-15] MEDS: INSULIN ASPART 100 UNITS/ML 3 ML PEN SC SCH ×4 (08:25→20:44)
[2020-11-15] MEDS: INSULIN GLARGINE SOLOSTAR 100 UNITS/ML 3 ML PEN SC SCH ×2 (08:26→20:43)
--- NOTE | 2020-11-15 11:12 | Cardiology Progress Note ---
Date of Service November 15, 2020 Assessment & Plan (1) Atrial flutter: Patient with multifactorial shortness of breath due to COPD/chronic respiratory failure and recent COVID-19 pneumonia, chronic diastolic heart failure with volume overload. 3.4 L of urine output noted in the last 24 hours, net negative balance of 1.8 L. Creatinine up to 1.88. Potassium fitted yesterday, but is improved with potassium chloride having been discontinued. Patient remains on metoprolol succinate 100 mg twice daily, diltiazem CD 240 mg daily for rate control. We will plan on holding diltiazem precardioversion. With regards to stroke prophylaxis, her INR had been subtherapeutic prompting heparin bridge. INR today 3.2. Both heparin and Coumadin are now on hold. Repeat INR tomorrow. Because INR has been subtherapeutic, plan for HUSSEIN for risk stratification prior to cardioversion tomorrow. (2) COPD exacerbation: (3) Chronic respiratory failure: Admission and Anticipated Discharge Date Admission Date: November 09, 2020 Subjective Ms. Carrasco is seen in cardiology follow-up of her chief complaint of shortness of breath. She notes ongoing improvement. She feels like she has more energy. Telemetry reveals ongoing atrial fibrillation/atrial flutter, however her heart rates are trending toward improvement, down to 100 to 120 bpm, and while sleeping, she had transient heart rates in the 80s. Review of Systems Review of Systems: All systems reviewed & are unremarkable except as noted in HPI & below Physical Exam Physical Exam: Temp Pulse Resp BP Pulse Ox 36.5 C 105 H 18 119/85 96 11/15/20 07:34 11/15/20 07:34 11/15/20 07:34 11/15/20 07:34 11/15/20 07:34 Constitutional: WD/WN, vitals as above Respiratory: Mild rhonchi this morning, improved with cough Cardiovascular: Rate/Rhythm: regular rhythm and + tachycardic Heart Sounds: no murmur Vessels: no JVD Extremities: no edema Gastrointestinal (Abdomen): normal bowel sounds, soft, nontender, no hepatosplenomegaly Neurologic: PERRL, EOMI, accommodation nl, no face palsy, no dysarthria Genitourinary: Sinclair catheter in place draining clear yellow urine Results & Data ([facility]) Vital Signs (Past 12 Hours) Vital Signs Temp Pulse Pulse Resp BP BP Pulse Ox 11/15/20 07:34 36.5 C 105 H 18 119/85 96 11/15/20 07:28 118 H 96 11/15/20 03:06 36.5 C 84 18 106/64 96 11/15/20 03:00 89 11/15/20 00:00 120 H 11/14/20 23:15 36.7 C 90 16 103/71 95
--- NOTE | 2020-11-15 13:56 | Hospitalist Progress Note ---
Date of Service November 15, 2020 Assessment & Plan (1) Chest pain: (2) Palpitation: SOB Fluid Overload. Acute on chronic diastolic CHF per Admitting Service notes: Pt is 65 y/o F with PMH DM II, HTN, HLD, hypothyroidism, chronic respiratory failure with hypoxia on 2L O2, DARIUS on CPAP, COPD, paroxysmal atrial fibrillation, venous thrombosis, CKD III< Lynn's esophagus, chronic pain, anemia, tobacco use disorder, h/o mitral valve repair, depression presented to ER with c/o CP, SOB. H/O COVID 10/11/20 CXR: Cardiomegaly with pulmonary vascular congestion and unchanged reticular opacities suggestive of pulmonary edema. 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 COPD -at baseline 2 L -Continue Breo H/O COVID-19 diagnosed on 10/11/2020 -Finished steroids -We will have another Covid test prior to HUSSEIN cardioversion tomorrow Headache right sided OLSON/ear ache Unable to fully visualize TM secondary to cerumen -Debrox drops -resolved Paroxysmal atrial fibrillation On Coumadin INR: 3.2 on 11/15/2020 -Discontinue heparin drip Hold Coumadin for now, may need Coumadin 7.5 and 5 mg alternating daily Repeat INR tomorrow Cardizem increased to 240 mg p.o. daily for better heart rate control Continue usual metoprolol HTN -Continue diltiazem, metoprolol, Amlodipine DM II A1c: 8.3 on 10/21/20 -Hold home meds -Basal bolus insulin per protocol adjusted ISS to prevent hypoglycemia CKD III Cr: 1.6. -At baseline -Monitor renal functions while on IV Lasix Sleep apnea -CPAP at bedtime Anxiety and depression -Continue home meds Chronic pain -Continue fentanyl patch, oxycodone prn GERD -Continue PPI DVT Prophylaxis -coumadin Disposition pending lives at home PT OT evaluation, may need inpatient rehab Admission and Anticipated Discharge Date Admission Date: November 09, 2020 Subjective 11/15/2020 The patient was seen and examined in medical telemetry unit She has been feeling a lot better for the last day or 2 Denies any cardiac symptoms Awaiting HUSSEIN cardioversion tomorrow Review of Systems Review of Systems: All systems reviewed and are unremarkable except as noted below Physical Exam Physical Exam: Sitting on a chair without any acute distress Constitutional: well developed and well nourished; not ill appearing Eyes: PERRL, conjunctivae normal, anicteric sclerae ENMT: external ear and nose normal, oropharynx normal Neck: trachea midline, no thyromegaly Respiratory: no respiratory distress Auscultation: lungs clear to auscultation bilaterally Cardiovascular: Rate/Rhythm: + irregularly irregular Heart Sounds: no murmur Extremities: no edema Gastrointestinal (Abdomen): Inspection/Auscultation: normal bowel sounds; abdomen not distended Percussion/Palpation: abdomen soft; abdomen nontender Musculoskeletal: No acute arthritis in any joint Neurologic: Alert, awake and oriented x3. No focal sensory and/or motor deficit appreciated Psychiatric: A+Ox3, euthymic affect Lymphatic: no cervical or axillary lymphadenopathy Results & Data Results & Data ([facility]) Vital Signs (Past 12 Hours) Vital Signs Temp Pulse Resp BP BP Pulse Ox 11/15/20 13:14 114 H 18 96 11/15/20 11:36 36.9 C 122 H 20 103/62 98 11/15/20 07:34 36.5 C 105 H 18 119/85 96 11/15/20 07:28 118 H 96 11/15/20 03:06 36.5 C 84 18 106/64 96 11/15/20 03:00 89 Laboratory Results [facility] 11/15/20 07:15 Sodium 140 Potassium 4.5 D Chloride 104 Carbon Dioxide 32 BUN 43 H Creatinine 1.82 H Glucose 100 H Calcium 9.6 Medications Administered Current Inpatient Medications Acetaminophen (Acetaminophen 325 Mg Tab) 650 mg PO Q4H PRN PRN Reason: Pain or Fever Stop: 12/09/20 00:56 Last Admin: 11/13/20 07:03 Dose: 650 mg Documented by: Al Hydroxide/Mg Trisilicate (Alum Hydrox/Mag Trisilicate Chew) 1 tab PO TID PRN PRN Reason: Reflux Stop: 12/09/20 00:56 Last Admin: 11/09/20 14:02 Dose: 1 tab Documented by: Amitriptyline HCl (Amitriptyline Hcl 50 Mg Tab) 50 mg PO HS JORGE Stop: 12/09/20 20:59 Last Admin: 11/14/20 21:39 Dose: 50 mg Documented by: Amlodipine Besylate (Amlodipine Besylate 5 Mg Tab) [address] [facility] Stop: 12/09/20 16:59 Last Admin: 11/15/20 08:22 Dose: 5 mg Documented by: Atorvastatin Calcium (Atorvastatin 40 Mg Tab) [address] [facility] Stop: 12/09/20 20:59 Last Admin: 11/14/20 21:39 Dose: 40 mg Documented by: Calcitriol (Calcitriol 0.25 Mcg Capsule) 0.25 mcg PO MoWeFr@0900 [facility] Stop: 12/10/20 08:59 Last Admin: 11/15/20 08:22 Dose: 0.25 mcg Documented by: Cetirizine HCl (Cetirizine Hcl 10 Mg Tablet) 10 mg PO [facility] Stop: 12/09/20 20:59 Last Admin: 11/14/20 21:39 Dose: 10 mg Documented by: Dextrose (Dextrose 50% 50 Ml Syringe) 25 - 50 ml IV UD PRN; Protocol PRN Reason: Hypoglycemia Protocol Stop: 12/09/20 00:56 Diltiazem HCl (Diltiazem Hcl 240 Mg Capcr) [address] [facility] Stop: 12/11/20 08:59 Last Admin: 11/15/20 08:22 Dose: 240 mg Documented by: Docusate Sodium (Docusate Sodium 100 Mg Cap) 100 mg PO BID JORGE Stop: 12/09/20 08:59 Last Admin: 11/15/20 08:22 Dose: 100 mg Documented by: Fentanyl (Fentanyl 50 Mcg/Hr Tdsy) 50 mcg TD Q72H JORGE Stop: 11/25/20 12:59 Last Admin: 11/14/20 12:18 Dose: 50 mcg Documented by: Fluticasone/Vilanterol (Fluticasone/Vilanterol 200/25mcg 14 Puffs/Inhaler) 1 puffs INH DAILY JORGE Stop: 12/09/20 08:59 Last Admin: 11/15/20 08:24 Dose: 1 puffs Documented by: Gabapentin (Gabapentin 800 Mg Tab) [address] [facility] Stop: 12/09/20 08:59 Last Admin: 11/15/20 08:21 Dose: 800 mg Documented by: Glucagon (Glucagon For Inj 1 Mg Vial) 1 mg SQ UD PRN; Protocol PRN Reason: Hypoglycemia Protocol Stop: 12/09/20 00:56 Glucose (Glucose 10 Tabs/Tube) 4 - 8 tabs PO UD PRN; Protocol PRN Reason: Hypoglycemia Protocol Stop: 12/09/20 00:56 Glucose (Glucose 40% Gel 15 Gm Tube) 15 - 30 gm PO UD PRN; Protocol PRN Reason: Hypoglycemia Protocol Stop: 12/09/20 00:56 Furosemide 40 mg/ Syringe 4 mls @ 4 mls/min IV BID17 JORGE Stop: 12/09/20 08:59 Last Admin: 11/15/20 08:24 Dose: 4 mls/min Documented by: Promethazine HCl 6.25 mg/ (Sodium Chloride) 50.25 mls @ 201 mls/hr IV Q6H PRN PRN Reason: Nausea And Vomiting Stop: 12/11/20 18:50 Insulin Aspart (Insulin Aspart 100 Units/Ml 3 Ml Pen) 0 units SC ACHS JORGE Stop: 12/09/20 01:29 Last Admin: 11/15/20 12:13 Dose: 4 units Documented by: Insulin Glargine (Insulin Glargine Solostar 100 Units/Ml 3 Ml Pen) 10 units SC BID JORGE Stop: 12/09/20 01:29 Last Admin: 11/15/20 08:26 Dose: 10 units Documented by: Ipratropium [place] (Ipratropium [place] Neb Soln 0.02% 2.5 Ml Vial) 0.5 mg INH Q6R JORGE Stop: 12/10/20 12:59 Last Admin: 11/15/20 13:13 Dose: 0.5 mg Documented by: Levalbuterol HCl (Levalbuterol Tartrate 15 Gm Hfa.Aer.Ad) 1 puffs INH Q4H PRN PRN Reason: Wheezing Stop: 12/09/20 00:56 Levalbuterol HCl (Levalbuterol Hcl 1.25 Mg/3 Ml Neb) 1.25 mg INH Q4H PRN PRN Reason: Wheezing Stop: 12/09/20 00:56 Last Admin: 11/09/20 19:47 Dose: 1.25 mg Documented by: Levalbuterol HCl (Levalbuterol 1.25mg/0.5ml Neb) 1.[address] [facility] Stop: 12/10/20 12:59 Last Admin: 11/15/20 13:13 Dose: 1.25 mg Documented by: Melatonin (Melatonin 3 Mg Tab) [address] [facility] Stop: 12/09/20 20:59 Last Admin: 11/14/20 21:45 Dose: 9 mg Documented by: Menthol (Cough Drop (Sugar Free) Maximiliano 24 Maximiliano/1 Box) 1 maximiliano BUCCAL PRN PRN PRN Reason: Cough/SORE THROAT Stop: 12/10/20 19:28 Methocarbamol (Methocarbamol 750 Mg Tablet) [address] [facility] Stop: 12/09/20 08:59 Last Admin: 11/15/20 08:21 Dose: 750 mg Documented by: Metoprolol Succinate (Metoprolol Succ 50mg Ext Rel Tab) [address] [facility] Stop: 12/09/20 08:59 Last Admin: 11/15/20 08:23 Dose: 100 mg Documented by: Metoprolol Tartrate (Metoprolol Tartrate 1 Mg/Ml Vial) 2.5 mg IV Q6 PRN PRN Reason: HR > 120 Stop: 12/09/20 17:59 Last Admin: 11/11/20 12:16 Dose: 2.5 mg Documented by: Miconazole Nitrate (Miconazole Nitrate Powder 43 Gm) 1 appln EXT PRN PRN PRN Reason: Affected Skin Folds Stop: 12/13/20 11:20 Miscellaneous (Carbohydrates For Hypoglycemia ) 15 - 30 gm PO UD PRN PRN Reason: Hypoglycemia Protocol Stop: 12/09/20 00:56 Last Admin: 11/09/20 14:25 Dose: 15 gm Documented by: Miscellaneous (Check Fentanyl Patch Placement) 1 ea N/A QS [facility] Stop: 12/09/20 00:56 Last Admin: 11/15/20 08:24 Dose: 1 ea Documented by: Miscellaneous (Fentanyl Patch Remove & Waste) 1 ea N/A Q72H [facility] Stop: 12/11/20 12:58 Last Admin: 11/14/20 08:11 Dose: 1 ea Documented by: Tegancellaneous (Remove Nicoderm Patch) 1 ea N/A DAILY@0859 [facility] Stop: 12/10/20 08:58 Last Admin: 11/15/20 08:24 Dose: 1 ea Documented by: Multivitamins (Multivitamin Tab) [address] [facility] Stop: 12/09/20 08:59 Last Admin: 11/15/20 08:22 Dose: 1 tab Documented by: Nicotine (Nicotine 14 Mg/24 Hr Patch) 14 mg TD QAM JORGE Stop: 12/09/20 10:29 Last Admin: 11/15/20 08:23 Dose: 14 mg Documented by: Nitroglycerin (Nitroglycerin Sl 0.4 Mg/Tab Tab) 0.4 mg SL UD PRN PRN Reason: Chest Pain Stop: 12/09/20 00:56 Oxycodone HCl (Oxycodone Hcl Ir 5 Mg Tab (Immediate Release)) 10 mg PO Q6H PRN PRN Reason: Pain Stop: 11/23/20 00:56 Last Admin: 11/11/20 00:03 Dose: 10 mg Documented by: Pantoprazole Sodium (Pantoprazole 40 Mg Tab) [address] [facility] Stop: 12/09/20 08:59 Last Admin: 11/15/20 08:23 Dose: 40 mg Documented by: Polyethylene Glycol (Polyethylene (Miralax) 17 Gm Pack) 17 gm PO DAILY PRN PRN Reason: Constipation Stop: 12/09/20 00:56 Last Admin: 11/09/20 16:30 Dose: 17 gm Documented by: Polyethylene Glycol (Polyethylene (Miralax) 17 Gm Pack) 17 gm PO DAILY JORGE Stop: 12/09/20 08:59 Last Admin: 11/15/20 08:22 Dose: Not Given Documented by: Trazodone HCl (Trazodone Hcl 100 Mg Tab) [address] [facility] Stop: 12/09/20 20:59 Last Admin: 11/14/20 21:39 Dose: 200 mg Documented by: Umeclidinium [place] (Umeclidinium [place] 62.5mcg/Blister 7 Puffs/Inhaler) [facility]uffs [facility] Stop: 12/09/20 08:59 Last Admin: 11/15/20 08:24 Dose: 1 puffs Documented by: Venlafaxine HCl (Venlafaxine Hcl Xr 150 Mg Capxr) [address] [facility] Stop: 12/09/20 08:59 Last Admin: 11/15/20 08:23 Dose: 150 mg Documented by: Venlafaxine HCl (Venlafaxine Hcl Xr 75 Mg Capxr) 75 mg PO [facility] Stop: 12/09/20 08:59 Last Admin: 11/15/20 08:22 Dose: 75 mg Documented by: Vitamin D (Cholecalciferol 1,000 Units 25 Mcg Tab) 1,000 units PO [facility] Stop: 12/09/20 08:59 Last Admin: 11/15/20 08:22 Dose: 1,000 units Documented by: Zolpidem Tartrate (Zolpidem Tartrate 5 Mg Tab) 5 mg PO [facility] Stop: 12/09/20 20:59 Last Admin: 11/14/20 21:39 Dose: 5 mg Documented by:
--- NOTE | 2020-11-15 17:24 | Anesthesiology Consultation ---
Date of Service November 15, 2020 Assessment & Plan (1) Encounter for pre-operative examination: Chart Review Chart Review: Acceptable Risk for Surgery and Patient NOT seen in Pre Admission Testing Consults Requested none History Surgery Operation Date: 11/16/20 08:15 Proposed Procedures p Transesophageal Echo w/Anesthesia - [place] Underwood DO s Cardioversion - [place] Underwood DO Height/Weight Height: 5 ft 4 in Weight: 99.3 kg Allergies Allergy/AdvReac Type Severity Reaction Status Date / Time bee venom protein (honey bee) Allergy Severe SWELLING Verified 10/29/20 20:53 lisinopril Allergy Intermediate FACE Verified 10/29/20 20:53 SWELLING potato Allergy Intermediate BBQ chips Verified 10/29/20 20:53 - facial swelling metronidazole Allergy Mild FACE Verified 10/29/20 20:53 SWELLING strawberry Allergy Mild HIVES Verified 10/29/20 20:53 alprazolam Allergy Unknown RED FACE, Verified 10/29/20 20:53 FACE SWELLING lactose AdvReac Intermediate VOMTING Verified 10/29/20 20:53 DIARRHEA ABDOMINAL PAIN-LACTOSE INTOLERANCE prednisone AdvReac Mild AGGRESSIVE Verified 10/29/20 20:53 BEHAVIOR colesevelam AdvReac Unknown unknown Verified 10/29/20 20:53 lithium AdvReac Unknown jitters Verified 10/29/20 20:53 Medications Home Medications Medication Instructions Recorded Confirmed Last Taken Spiriva with HandiHaler 1 cap INHALATION QAM 06/19/18 11/08/20 11/08/20 atorvastatin 40 mg PO HS 06/19/18 11/08/20 11/07/20 cetirizine 10 mg PO HS 06/19/18 11/08/20 11/07/20 cholecalciferol (vitamin D3) 1,000 unit PO QAM 06/19/18 11/08/20 11/08/20 [Vitamin D3] docusate sodium 100 mg PO BID 06/19/18 11/08/20 11/08/20 AM DOSE epinephrine [EpiPen] 0.3 mg IM DIRECTED PRN 06/19/18 11/08/20 06/28/18 fentanyl 50 mcg TRANSDERMAL [id number] 06/19/18 11/08/20 11/08/20 methocarbamol 750 mg PO TID 06/19/18 11/08/20 10/29/20 multivitamin 1 tab PO QAM 06/19/18 11/08/20 11/08/20 ondansetron 8 mg PO BID PRN 06/19/18 11/08/20 10/29/20 venlafaxine 150 mg PO QAM 06/19/18 11/08/20 11/08/20 warfarin 5 mg PO [id number] 06/19/18 11/08/20 11/08/20 trazodone 200 mg PO HS 09/14/18 11/08/20 11/07/20 venlafaxine 75 mg PO QAM 09/14/18 11/08/20 11/08/20 zolpidem 5 mg PO HS 09/14/18 11/08/20 10/28/20 gabapentin 800 mg PO BID 05/28/19 11/08/20 11/08/20 AM DOSE alendronate 70 mg tablet 70 mg PO WK tab 06/10/19 11/08/20 11/08/20 warfarin 7.5 mg PO WK 09/19/19 11/08/20 11/06/20 Lantus U-100 Insulin 18 unit SUBCUT BID 03/02/20 11/08/20 11/08/20 AM DOSE potassium chloride 40 meq PO TID 03/02/20 11/08/20 10/29/20 albuterol sulfate [Proventil HFA] 2 puffs INH Q6H PRN 03/24/20 11/08/20 Unknown levalbuterol HCl 1.25 mg INHALATION Q4H PRN 03/24/20 11/08/20 Unknown amlodipine 5 mg PO QAM 05/15/20 11/08/20 11/08/20 nitroglycerin [Nitrostat] 0.4 mg SUBLINGUAL DIRECTED PRN 07/02/20 11/08/20 07/02/20 oxycodone 10 mg PO Q6H PRN 07/02/20 11/08/20 10/29/20 fluticasone propion-salmeterol 1 inh INHALATION BID 08/01/20 11/08/20 11/08/20 [Advair Diskus] AM DOSE calcitriol 0.25 mcg PO DIRECTED 10/21/20 11/08/20 11/08/20 diltiazem HCl 180 mg PO QAM 30 Days #30 cap 02/06/0511/08/20 11/08/20 amoxicillin-pot clavulanate 1 tab PO BID #14 tab 11/04/20 11/08/20 11/08/20 [Augmentin] AM DOSE Al hyd-Mg tr-alg ac-sod bicarb 1 tab PO TID PRN 11/08/20 11/08/20 Unknown [Gaviscon] acetaminophen 500 mg PO Q6H PRN 11/08/20 11/08/20 Unknown amitriptyline 50 mg PO HS 11/08/20 11/08/20 11/07/20 benzonatate 100 mg PO TID PRN 11/08/20 11/08/20 Unknown furosemide 80 mg PO BID 11/08/20 11/08/20 Unknown levalbuterol tartrate [Xopenex HFA] 1 puff INHALATION Q4H PRN 11/08/20 11/08/20 Unknown melatonin 10 mg PO HS 11/08/20 11/08/20 Unknown metoprolol succinate 100 mg PO BID 11/08/20 11/08/20 11/08/20 AM DOSE pantoprazole 40 mg PO BID 11/08/20 11/08/20 11/08/20 AM DOSE polyethylene glycol 3350 17 g PO DAILY 11/08/20 11/08/20 11/08/20 prednisone See Rx Instructions .ROUTE 11/08/20 11/08/20 Unknown .COMPLEX PRN prochlorperazine maleate 10 mg PO Q6H PRN 11/08/20 11/08/20 Unknown [Compazine] Active Medications Generic Name Dose Route Start Last Admin Trade Name Rakeshq PRN Reason Stop Dose Admin Acetaminophen 650 mg 11/09/20 00:57 11/13/20 07:03 Acetaminophen 325 Mg Tab PO 12/09/20 00:56 650 mg Q4H PRN Administration Pain or Fever Al Hydroxide/Mg Trisilicate 1 tab 11/09/20 00:57 11/09/20 14:02 Alum Hydrox/Mag Trisilicate Chew PO 12/09/20 00:56 1 tab TID PRN Administration Reflux Amitriptyline HCl 50 mg 11/09/20 21:00 11/14/20 21:39 Amitriptyline Hcl 50 Mg Tab PO 12/09/20 20:59 50 mg HS JORGE Administration Amlodipine Besylate 5 mg 11/09/20 17:00 11/15/20 08:22 Amlodipine Besylate 5 Mg Tab PO 12/09/20 16:59 5 mg QAM JORGE Administration Atorvastatin Calcium 40 mg 11/09/20 21:00 11/14/20 21:39 Atorvastatin 40 Mg Tab PO 12/09/20 20:59 40 mg HS JORGE Administration Calcitriol 0.25 mcg 11/10/20 09:00 11/15/20 08:22 Calcitriol 0.25 Mcg Capsule PO 12/10/20 08:59 0.25 mcg MoWeFr@0900 JORGE Administration Cetirizine HCl 10 mg 11/09/20 21:00 11/14/20 21:39 Cetirizine Hcl 10 Mg Tablet PO 12/09/20 20:59 10 mg HS JORGE Administration Diltiazem HCl 240 mg 11/11/20 09:00 11/15/20 08:22 Diltiazem Hcl 240 Mg Capcr PO 12/11/20 08:59 240 mg QAM JORGE Administration Docusate Sodium 100 mg 11/09/20 09:00 11/15/20 08:22 Docusate Sodium 100 Mg Cap PO 12/09/20 08:59 100 mg BID JORGE Administration Fentanyl 50 mcg 11/11/20 13:00 11/14/20 12:18 Fentanyl 50 Mcg/Hr Tdsy TD 11/25/20 12:59 50 mcg Q72H JORGE Administration Fluticasone/Vilanterol 1 puffs 11/09/20 09:00 11/15/20 08:24 Fluticasone/Vilanterol 200/25mcg 14 Puffs/Inhaler INH 12/09/20 08:59 1 puffs DAILY JORGE Administration Gabapentin 800 mg 11/09/20 09:00 11/15/20 08:21 Gabapentin 800 Mg Tab PO 12/09/20 08:59 800 mg BID JORGE Administration Furosemide 40 mg/ Syringe 4 mls @ 4 mls/min 11/09/20 09:00 11/15/20 08:24 IV 12/09/20 08:59 4 mls/min BID17 JORGE Administration Insulin Aspart 0 units 11/09/20 01:30 11/15/20 17:03 Insulin Aspart 100 Units/Ml 3 Ml Pen SC 12/09/20 01:29 3 units ACHS JORGE Administration Insulin Glargine 10 units 11/09/20 01:30 11/15/20 08:26 Insulin Glargine Solostar 100 Units/Ml 3 Ml Pen SC 12/09/20 01:29 10 units BID JORGE Administration Ipratropium [place] 0.5 mg 11/10/20 13:00 11/15/20 13:13 Ipratropium [place] Neb Soln 0.02% 2.5 Ml Vial INH 12/10/20 12:59 0.5 mg Q6R JORGE Administration Levalbuterol HCl 1.25 mg 11/09/20 00:57 11/09/20 19:47 Levalbuterol Hcl 1.25 Mg/3 Ml Neb INH 12/09/20 00:56 1.25 mg Q4H PRN Administration Wheezing Levalbuterol HCl 1.25 mg 11/10/20 13:00 11/15/20 13:13 Levalbuterol 1.25mg/0.5ml Neb INH 12/10/20 12:59 1.25 mg Q6R JORGE Administration Melatonin 9 mg 11/09/20 21:00 11/14/20 21:45 Melatonin 3 Mg Tab PO 12/09/20 20:59 9 mg HS JORGE Administration Methocarbamol 750 mg 11/09/20 09:00 11/15/20 14:07 Methocarbamol 750 Mg Tablet PO 12/09/20 08:59 750 mg TID JORGE Administration Metoprolol Succinate 100 mg 11/09/20 09:00 11/15/20 08:23 Metoprolol Succ 50mg Ext Rel Tab PO 12/09/20 08:59 100 mg BID JORGE Administration Metoprolol Tartrate 2.5 mg 11/09/20 14:45 11/11/20 12:16 Metoprolol Tartrate 1 Mg/Ml Vial IV 12/09/20 17:59 2.5 mg Q6 PRN Administration HR > 120 Miscellaneous 15 - 30 gm 11/09/20 00:57 11/09/20 14:25 Carbohydrates For Hypoglycemia PO 12/09/20 00:56 15 gm UD PRN Administration Hypoglycemia Protocol Miscellaneous 1 ea 11/09/20 00:57 11/15/20 17:02 Check Fentanyl Patch Placement N/A 12/09/20 00:56 1 ea QS JORGE Administration Miscellaneous 1 ea 11/11/20 12:59 11/14/20 08:11 Fentanyl Patch Remove & Waste N/A 12/11/20 12:58 1 ea Q72H JORGE Administration Miscellaneous 1 ea 11/10/20 08:59 11/15/20 08:24 Remove Nicoderm Patch N/A 12/10/20 08:58 1 ea DAILY@0859 JORGE Administration Multivitamins 1 tab 11/09/20 09:00 11/15/20 08:22 Multivitamin Tab PO 12/09/20 08:59 1 tab QAM JORGE Administration Nicotine 14 mg 11/09/20 10:30 11/15/20 08:23 Nicotine 14 Mg/24 Hr Patch TD 12/09/20 10:29 14 mg QAM JORGE Administration Oxycodone HCl 10 mg 11/09/20 00:57 11/11/20 00:03 Oxycodone Hcl Ir 5 Mg Tab (Immediate Release) PO 11/23/20 00:56 10 mg Q6H PRN Administration Pain Pantoprazole Sodium 40 mg 11/09/20 09:00 11/15/20 08:23 Pantoprazole 40 Mg Tab PO 12/09/20 08:59 40 mg BID JORGE Administration Polyethylene Glycol 17 gm 11/09/20 00:57 11/09/20 16:30 Polyethylene (Miralax) 17 Gm Pack PO 12/09/20 00:56 17 gm DAILY PRN Administration Constipation Polyethylene Glycol 17 gm 11/09/20 09:00 11/15/20 08:22 Polyethylene (Miralax) 17 Gm Pack PO 12/09/20 08:59 Not Given DAILY JORGE Trazodone HCl 200 mg 11/09/20 21:00 11/14/20 21:39 Trazodone Hcl 100 Mg Tab PO 12/09/20 20:59 200 mg HS JORGE Administration Umeclidinium [place] 1 puffs 11/09/20 09:00 11/15/20 08:24 Umeclidinium [place] 62.5mcg/Blister 7 Puffs/Inhaler INH 12/09/20 08:59 1 puffs QAM JORGE Administration Venlafaxine HCl 150 mg 11/09/20 09:00 11/15/20 08:23 Venlafaxine Hcl Xr 150 Mg Capxr PO 12/09/20 08:59 150 mg QAM JORGE Administration Venlafaxine HCl 75 mg 11/09/20 09:00 03/03/21 08:22 Venlafaxine Hcl Xr 75 Mg Capxr PO 12/09/20 08:59 75 mg QAM JORGE Administration Vitamin D 1,000 units 11/09/20 09:00 11/15/20 08:22 Cholecalciferol 1,000 Units 25 Mcg Tab PO 12/09/20 08:59 1,000 units QAM JORGE Administration Zolpidem Tartrate 5 mg 11/09/20 21:00 11/14/20 21:39 Zolpidem Tartrate 5 Mg Tab PO 12/09/20 20:59 5 mg HS JORGE Administration Past Medical History Medical History Anxiety Asthma 3LPM via n/c mostly continuous (although patient states she does not wear this all the time) Atrial fibrillation a. fib/a. flutter s/p cardioversion (2016) Lynn esophagus Bipolar disorder Chronic back pain Chronic cor pulmonale Chronic kidney disease stage III Chronic obstructive pulmonary disease 3LPM via n/c mostly continuous (although patient states she does not wear this all the time) COVID-19 virus detected + 10/11/20 CVA (cerebral vascular accident) 2004 (per records; patient denies) Degeneration of cervical intervertebral disc Depression Diastolic CHF, chronic DM type 2 (diabetes mellitus, type 2) Fibromyalgia Gastroparesis GERD (gastroesophageal reflux disease) History of cardioversion History of Clostridium difficile infection History of DVT (deep vein thrombosis) left "hand" 2004- on AC HTN (hypertension) Hyperlipidemia Hypothyroidism no current medication per doctor orders. 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 Obesity Obstructive sleep apnea treated with BiPAP cpap night Osteoarthritis Peripheral neuropathy Post traumatic stress disorder Past Family History Family History Mother Family history of diabetes mellitus Sister Family history of diabetes mellitus Ulcerative colitis Past Surgical History Surgical History History of adenoidectomy History of appendectomy LAPAROSCOPY History of cardiac cath 2005= no stents History of carpal tunnel release left History of cataract surgery BILATERAL History of cholecystectomy LAPAROSCOPY History of colonoscopy History of esophagogastroduodenoscopy (EGD) History of hysterectomy EMIGDIO WITH BSO History of mitral valve repair 2004 + resection fibroelastoma History of tonsillectomy Hx of lumpectomy right breast BENIGN Hx of tubal ligation Hx of umbilical hernia repair S/P trigger finger release RIGHT/LEFT Social History Smoking Status: Current every day smoker tobacco type: cigarettes Smoking cigarettes per day: 10 Hx Alcohol Use: No Hx Substance Use: No substance use type: does not use Physical Exam Vital Signs Last Vital Signs Temp 36.9 C 11/15/20 15:09 Pulse 119 H 11/15/20 15:09 Resp 20 11/15/20 15:09 BP 105/71 11/15/20 15:09 Pulse Ox 94 11/15/20 15:09 Testing Laboratory Results 11/09/20 07:10 11/15/20 07:15 PT 29.2 Seconds (9.0-12.0) H 11/15/20 07:15 INR 3.2 (0.9-1.1) H 11/15/20 07:15 APTT 72.0 Seconds (21.0-31.0) H* 11/14/20 13:43 11/15/20 11/15/20 11/15/20 16:22 11:17 07:21 POC Glucose 229 H 228 H 102 H Electrocardiogram Date: 11/10/20 Atrial flutter with variable A-V block (96) Right bundle branch block Abnormal ECG When compared with ECG of 09-NOV-2020 06:37, QRS duration has increased QT has lengthened Chest X-Ray Date: 11/10/20 IMPRESSION: Persistent cardiomegaly and pulmonary edema pattern. Echocardiogram Date: 07/02/20 EF: 65-70% Other Findings: + LVH (severe concentric) Flattened septum (consistent with RV pressure overload), mild MR
[2020-11-15] MEDS: traZODone HCL 100 MG TAB PO SCH (20:43)
[2020-11-15] MEDS: MELATONIN 3 MG TAB PO SCH (20:47)
[2020-11-15] MEDS: ATORVASTATIN 40 MG TAB PO SCH (20:47)
[2020-11-15] MEDS: AMITRIPTYLINE HCL 50 MG TAB PO SCH (20:47)
[2020-11-15] MEDS: ZOLPIDEM TARTRATE 5 MG TAB PO SCH (20:47)
[2020-11-15] MEDS: CETIRIZINE HCL 10 MG TABLET PO SCH (20:48)
[2020-11-15] MEDS: oxyCODONE HCL IR 5 MG TAB (IMMEDIATE RELEASE) PO PRN (20:52)
[2020-11-16] MEDS: IPRATROPIUM BROMIDE NEB SOLN 0.02% 2.5 ML VIAL INH SCH ×4 (00:25→20:00)
[2020-11-16] MEDS: LEVALBUTEROL 1.25MG/0.5ML NEB INH SCH ×4 (00:25→20:00)
[2020-11-16] MEDS: CHECK fentaNYL PATCH PLACEMENT SCH ×3 (00:44→16:48)
[2020-11-16 07:16] LABS: INR 1.9 (0.9-1.1); Prothrombin Time 18.2 Seconds (9.0-12.0)
[2020-11-16 07:40] LABS: BUN Creatinine Ratio 22.6 (10-20); Calcium 10.1 mg/dl (8.5-10.1); Creatinine Clr Calc Pharmacy 33.4 ml/min; Est GFR (African American) 30.8; Est GFR (Non-African American) 26.5; Potassium 4.4 mmol/L (3.5-5.1)
[2020-11-16] MEDS: INSULIN ASPART 100 UNITS/ML 3 ML PEN SC SCH ×4 (08:13→21:43)
[2020-11-16] MEDS: INSULIN GLARGINE SOLOSTAR 100 UNITS/ML 3 ML PEN SC SCH ×2 (08:14→21:43)
[2020-11-16] MEDS: POLYETHYLENE (MIRALAX) 17 GM PACK PO SCH (08:14)
[2020-11-16] MEDS: NICOTINE 14 MG/24 HR PATCH TD SCH (08:15)
[2020-11-16] MEDS: FLUTICASONE/VILANTEROL 200/25MCG 14 PUFFS/INHALER INH SCH (08:15)
[2020-11-16] MEDS: UMECLIDINIUM BROMIDE 62.5MCG/BLISTER 7 PUFFS/INHALER INH SCH (08:15)
[2020-11-16] MEDS: METOPROLOL SUCC 50MG EXT REL TAB PO SCH ×2 (08:16→21:44)
[2020-11-16] MEDS: METHOCARBAMOL 750 MG TABLET PO SCH ×3 (08:16→21:44)
[2020-11-16] MEDS: VENLAFAXINE HCL XR 150 MG CAPXR PO SCH (08:16)
[2020-11-16] MEDS: CHOLECALCIFEROL 1,000 UNITS 25 MCG TAB PO SCH (08:16)
[2020-11-16] MEDS: PANTOprazole 40 MG TAB PO SCH ×2 (08:16→21:44)
[2020-11-16] MEDS: VENLAFAXINE HCL XR 75 MG CAPXR PO SCH (08:17)
[2020-11-16] MEDS: DOCUSATE SODIUM 100 MG CAP PO SCH ×2 (08:17→21:43)
[2020-11-16] MEDS: GABAPENTIN 800 MG TAB PO SCH ×2 (08:17→21:43)
[2020-11-16] MEDS: MULTIVITAMIN TAB PO SCH (08:17)
[2020-11-16] MEDS: amLODIPine BESYLATE 5 MG TAB PO SCH (08:17)
--- NOTE | 2020-11-16 10:01 | Cardiology Progress Note ---
Date of Service November 16, 2020 Assessment & Plan (1) Atrial flutter: Patient with multifactorial shortness of breath due to COPD/chronic respiratory failure and recent COVID-19 pneumonia, chronic diastolic heart failure with volume overload. Diuretics held this morning as creatinine had trended up to 1.88 yesterday, and is 1.95 today. I believe she is optimized from a volume status standpoint. INR is 1.9 this morning. She had been both subtherapeutic and supratherapeutic in terms of her INR in recent days. We will proceed with transesophageal echocardiogram for risk stratification prior to cardioversion today. Informed consent obtained. Consents completed yesterday. Patient elects to proceed. Will resume coumadin post procedure. (2) COPD exacerbation: (3) Chronic respiratory failure: Admission and Anticipated Discharge Date Admission Date: November 09, 2020 Subjective Mr Minaya is seen in cardiology follow-up of her chief complaint of shortness of breath. She did well overnight last night. Respiratory status is stable. Review of Systems Review of Systems: All systems reviewed & are unremarkable except as noted in HPI & below Physical Exam Physical Exam: Temp Pulse Resp BP Pulse Ox 36.5 C 115 H 18 116/62 96 11/16/20 07:00 11/16/20 07:25 11/16/20 07:25 11/16/20 07:00 11/16/20 07:25 Constitutional: WD/WN, vitals as above Respiratory: Coarse breath sounds bilaterally at the bases, still trending toward improvement, improving with cough. Cardiovascular: Rate/Rhythm: regular rhythm and + tachycardic Heart Sounds: no murmur Extremities: no edema Gastrointestinal (Abdomen): normal bowel sounds, soft, nontender, no hepatosplenomegaly Neurologic: PERRL, EOMI, accommodation nl, no face palsy, no dysarthria Results & Data ([facility]) Vital Signs (Past 12 Hours) Vital Signs Temp Pulse Pulse Resp BP BP Pulse Ox 11/16/20 07:25 115 H 18 96 11/16/20 07:00 36.5 C 116 H 20 116/62 96 11/16/20 03:45 36.5 C 102 H 18 94/61 L 95 11/15/20 23:32 36.3 C L 118 H 74 82 H 139/74 93
[2020-11-16] MEDS ORDERED: WARFARIN SOD 5 MG TAB PO ONE (10:06)
[2020-11-16] MEDS ORDERED: CANNULA ONE (10:16)
[2020-11-16] MEDS ORDERED: PROPOFOL IV EMULSION 10 MG/ML 20 ML VIAL IV ONE (11:02)
[2020-11-16] MEDS ORDERED: LIDOCAINE 2% MPF LOCAL 5 ML VIAL INFIL ONE (11:02)
--- NOTE | 2020-11-16 11:09 | Anesthesiology Progress Note ---
Date of Service November 16, 2020 Anesthesia Post Procedure Vital Signs Vital Signs: Temp Pulse Pulse Pulse Resp BP BP 11/16/20 11:00 101 H 16 106/76 11/16/20 10:00 113 H 16 118/81 11/16/20 07:25 115 H 18 11/16/20 07:00 36.5 C 116 H 20 116/62 11/16/20 03:45 36.5 C 102 H 18 94/61 L 11/15/20 23:32 36.3 C L 118 H 74 82 H 139/74 11/15/20 19:35 109 H 18 11/15/20 18:45 36.6 C 105 H 96 H 122/78 11/15/20 17:00 120 H 11/15/20 15:09 36.9 C 119 H 20 105/71 11/15/20 13:14 114 H 18 11/15/20 11:36 36.9 C 122 H 20 103/62 Pulse Ox 11/16/20 11:00 97 11/16/20 10:00 97 11/16/20 07:25 96 11/16/20 07:00 96 11/16/20 03:45 95 11/15/20 23:32 93 11/15/20 19:35 96 11/15/20 18:45 96 11/15/20 17:00 11/15/20 15:09 94 11/15/20 13:14 96 11/15/20 11:36 98 Pain Intensity Head: Pain Intensity: 0 Transfer of Care Handoff Completed per policy Notes Mental Status: alert / awake / arousable Patient Amnestic to Procedure: Yes Nausea / Vomiting: adequately controlled Pain: adequately controlled Airway Patency, RR, SpO2: stable & adequate BP & HR: stable & adequate Hydration State: stable & adequate Anesthetic Complications: no major complications apparent
--- NOTE | 2020-11-16 11:09 | Post Operative Brief Note ---
Cardiology Brief Post Op Date of Surgery November 16, 2020 Pre & Post Diagnosis Preprocedure diagnosis; symptomatic atrial flutter Postprocedure diagnosis: Severe spontaneous echo contrast left atrium, left atrial appendage, left atrial appendage thrombus Operation Date: 11/16/20 08:15 <No data on this case meets the specified criteria> Procedure Transesophageal echocardiogram: The patient's vital signs were monitored in the standard fashion. After informed consent was obtained and a timeout was performed the patient was sedated with the assistance of the anesthesia service receiving 40 mg of IV lidocaine, a total of 110 mg of IV propofol. The transesophageal echocardiogram probe was placed without difficulty. The patient was found to have sluggish flow in the left atrium and left atrial appendage with severe spontaneous echo contrast. The ultrasound enhancement agent Definity was administered with findings of the filling defect in the left atrial appendage consistent with a mural thrombus. Direct-current cardioversion was therefore not performed. Assessment: Atrial flutter, history of mitral valve repair with angioplasty ring, left atrial appendage thrombus. Patient has had recent labile INR readings with both supratherapeutic and subtherapeutic INR measurements. Due to her multiple recent illnesses, and suspected hypercoagulable state in the setting of recent COVID-19 pneumonia, her anticoagulation is felt to have been suboptimal. Patient has a history of past high risk left atrial appendage findings on HUSSEIN performed in August,. Options include ongoing anticoagulation with Coumadin, with goal INR of 2.5-3.5 as compared to to 3, but as noted, she has had recent high INRs, and low INR measurements. At this time, I think it is most prudent to proceed with a trial of the direct oral anticoagulant Eliquis. The appropriate dose for her would be 5 mg twice daily. For the most recent update to the AHA / ACC guidelines for the treatment of valvular heart disease, a direct oral anticoagulant is an acceptable alternative to Coumadin in the absence of mechanical prosthesis or rheumatic mitral stenosis. The patient has a history of annuloplasty ring, but no mechanical valve, does not have a history of rheumatic heart disease. Future considerations include repeat HUSSEIN after uninterrupted direct oral anticoagulant therapy x4 weeks for reassessment. Continue metoprolol and diltiazem. Once renal function stabilizes, will consider adding digoxin. Enterprise Software Engineer Chico Underwood, Lead Former Lidia Curiel, RCS Estimated Blood Loss 0 Findings Consistent with Post-Op Diagnosis
[2020-11-16] MEDS: APIXABAN 5 MG TABLET PO SCH ×2 (12:04→21:43)
--- NOTE | 2020-11-16 13:33 | Hospitalist Progress Note ---
Date of Service November 16, 2020 Assessment & Plan (1) Chest pain: (2) Palpitation: Paroxysmal atrial fibrillation On Coumadin INR: 3.2 on 11/15/2020 -Discontinue heparin drip Hold Coumadin for now, may need Coumadin 7.5 and 5 mg alternating daily INR is 1.9 on 11/16/2020 HUSSEIN cardioversion was postponed due to possible left atrial thrombus and difficult to manage anticoagulation with Coumadin She will be given Eliquis 5 mg twice daily to continue and will be reevaluated as an outpatient by the manager field She may need digoxin to control the heart rate as per the manager field Cardizem increased to 240 mg p.o. daily for better heart rate control Continue usual metoprolol SOB Fluid Overload. Acute on chronic diastolic CHF per Admitting Service notes: Pt is 65 y/o F with PMH DM II, HTN, HLD, hypothyroidism, chronic respiratory failure with hypoxia on 2L O2, DARIUS on CPAP, COPD, paroxysmal atrial fibrillation, venous thrombosis, CKD III< Lynn's esophagus, chronic pain, anemia, tobacco use disorder, h/o mitral valve repair, depression presented to ER with c/o CP, SOB. H/O COVID 10/11/20 CXR: Cardiomegaly with pulmonary vascular congestion and unchanged reticular opacities suggestive of pulmonary edema. 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 COPD -at baseline 2 L -Continue Breo -She is back to her baseline requirement of oxygen H/O COVID-19 diagnosed on 10/11/2020 -Finished steroids -We will have another Covid test prior to HUSSEIN cardioversion tomorrow -Covid test on 07/04/2021 was negative Headache right sided OLSON/ear ache Unable to fully visualize TM secondary to cerumen -Debrox drops -resolved HTN -Continue diltiazem, metoprolol, Amlodipine DM II A1c: 8.3 on 10/21/20 -Hold home meds -Basal bolus insulin per protocol adjusted ISS to prevent hypoglycemia CKD III Cr: 1.6. -At baseline -Monitor renal functions while on IV Lasix Sleep apnea -CPAP at bedtime Anxiety and depression -Continue home meds Chronic pain -Continue fentanyl patch, oxycodone prn GERD -Continue PPI DVT Prophylaxis -coumadin Disposition pending lives at home PT OT evaluation, may need inpatient rehab Likely discharge tomorrow Admission and Anticipated Discharge Date Admission Date: November 09, 2020 Subjective 11/15/2020 The patient was seen and examined in medical telemetry unit She has been feeling a lot better for the last day or 2 Denies any cardiac symptoms Awaiting HUSSEIN cardioversion tomorrow 11/16/2020 The patient was seen and examined in medical telemetry unit HUSSEIN cardioversion was not performed due to possible left atrial thrombus She denies any symptoms of chest pain, palpitation or shortness of breath Review of Systems Review of Systems: All systems reviewed and are unremarkable except as noted below Physical Exam Physical Exam: Sitting on a chair without any acute distress Constitutional: well developed and well nourished; not ill appearing Eyes: PERRL, conjunctivae normal, anicteric sclerae ENMT: external ear and nose normal, oropharynx normal Neck: trachea midline, no thyromegaly Respiratory: no respiratory distress Auscultation: lungs clear to auscultation bilaterally Cardiovascular: Rate/Rhythm: + irregularly irregular Heart Sounds: no murmur Extremities: no edema Gastrointestinal (Abdomen): Inspection/Auscultation: normal bowel sounds; abdomen not distended Percussion/Palpation: abdomen soft; abdomen nontender Musculoskeletal: No acute arthritis in any joint Neurologic: Alert, awake and oriented x3. Generally weak but no focal sensory and motor deficit appreciated Psychiatric: A+Ox3, euthymic affect Lymphatic: no cervical or axillary lymphadenopathy Results & Data Results & Data ([facility]) Vital Signs (Past 12 Hours) Vital Signs Temp Pulse Pulse Resp BP BP Pulse Ox 11/16/20 13:21 36.3 C L 116 H 22 142/80 H 92 11/16/20 12:43 36.8 C 109 H 22 121/81 91 11/16/20 12:24 36.2 C L 111 H 22 128/85 91 11/16/20 12:10 37.0 C 125 H 22 94/58 L 93 11/16/20 11:49 36.8 C 108 H 20 83/53 L 120/41 L 95 11/16/20 11:30 108 H 16 104/81 96 11/16/20 11:15 113 H 16 115/75 96 11/16/20 11:00 101 H 16 106/76 97 11/16/20 10:00 113 H 16 118/81 97 11/16/20 07:25 115 H 18 96 11/16/20 07:00 36.5 C 116 H 20 116/62 96 11/16/20 03:45 36.5 C 102 H 18 94/61 L 95 Laboratory Results [facility] 11/16/20 06:44 Sodium 140 Potassium 4.4 Chloride 102 Carbon Dioxide 33 H BUN 44 H Creatinine 1.95 H Glucose 115 H Calcium 10.1 Medications Administered Current Inpatient Medications Acetaminophen (Acetaminophen 325 Mg Tab) 650 mg PO Q4H PRN PRN Reason: Pain or Fever Stop: 12/09/20 00:56 Last Admin: 11/13/20 07:03 Dose: 650 mg Documented by: Al Hydroxide/Mg Trisilicate (Alum Hydrox/Mag Trisilicate Chew) 1 tab PO TID PRN PRN Reason: Reflux Stop: 12/09/20 00:56 Last Admin: 11/09/20 14:02 Dose: 1 tab Documented by: Amitriptyline HCl (Amitriptyline Hcl 50 Mg Tab) 50 mg PO [facility] Stop: 12/09/20 20:59 Last Admin: 11/15/20 20:47 Dose: 50 mg Documented by: Amlodipine Besylate (Amlodipine Besylate 5 Mg Tab) 5 mg PO [facility] Stop: 12/09/20 16:59 Last Admin: 11/16/20 08:17 Dose: 5 mg Documented by: Apixaban (Apixaban 5 Mg Tablet) 5 mg PO BID [facility] Stop: 12/16/20 11:29 Last Admin: 11/16/20 12:04 Dose: 5 mg Documented by: Atorvastatin Calcium (Atorvastatin 40 Mg Tab) 40 mg PO [facility] Stop: 12/09/20 20:59 Last Admin: 11/15/20 20:47 Dose: 40 mg Documented by: Calcitriol (Calcitriol 0.25 Mcg Capsule) 0.25 mcg PO MoWeFr@0900 [facility] Stop: 12/10/20 08:59 Last Admin: 11/15/20 08:22 Dose: 0.25 mcg Documented by: Cetirizine HCl (Cetirizine Hcl 10 Mg Tablet) 10 mg PO [facility] Stop: 12/09/20 20:59 Last Admin: 11/15/20 20:48 Dose: 10 mg Documented by: Dextrose (Dextrose 50% 50 Ml Syringe) 25 - 50 ml IV UD PRN; Protocol PRN Reason: Hypoglycemia Protocol Stop: 12/09/20 00:56 Diltiazem HCl (Diltiazem Hcl 240 Mg Capcr) 240 mg PO QAM JORGE Stop: 12/11/20 08:59 Last Admin: 11/15/20 08:22 Dose: 240 mg Documented by: Docusate Sodium (Docusate Sodium 100 Mg Cap) 100 mg PO BID [facility] Stop: 12/09/20 08:59 Last Admin: 11/16/20 08:17 Dose: 100 mg Documented by: Fentanyl (Fentanyl 50 Mcg/Hr Tdsy) 50 mcg TD Q72H [facility] Stop: 11/25/20 12:59 Last Admin: 11/14/20 12:18 Dose: 50 mcg Documented by: Fluticasone/Vilanterol (Fluticasone/Vilanterol 200/25mcg 14 Puffs/Inhaler) 1 puffs INH DAILY JORGE Stop: 12/09/20 08:59 Last Admin: 11/16/20 08:15 Dose: 1 puffs Documented by: Gabapentin (Gabapentin 800 Mg Tab) 800 mg PO BID [facility] Stop: 12/09/20 08:59 Last Admin: 11/16/20 08:17 Dose: 800 mg Documented by: Glucagon (Glucagon For Inj 1 Mg Vial) 1 mg SQ UD PRN; Protocol PRN Reason: Hypoglycemia Protocol Stop: 12/09/20 00:56 Glucose (Glucose 10 Tabs/Tube) 4 - 8 tabs PO UD PRN; Protocol PRN Reason: Hypoglycemia Protocol Stop: 12/09/20 00:56 Glucose (Glucose 40% Gel 15 Gm Tube) 15 - 30 gm PO UD PRN; Protocol PRN Reason: Hypoglycemia Protocol Stop: 12/09/20 00:56 Promethazine HCl 6.25 mg/ (Sodium Chloride) 50.25 mls @ 201 mls/hr IV Q6H PRN PRN Reason: Nausea And Vomiting Stop: 12/11/20 18:50 Insulin Aspart (Insulin Aspart 100 Units/Ml 3 Ml Pen) 0 units SC ACHS JORGE Stop: 12/09/20 01:29 Last Admin: 11/16/20 12:04 Dose: 2 units Documented by: Insulin Glargine (Insulin Glargine Solostar 100 Units/Ml 3 Ml Pen) 10 units SC BID [facility] Stop: 12/09/20 01:29 Last Admin: 11/16/20 08:14 Dose: 10 units Documented by: Ipratropium [place] (Ipratropium [place] Neb Soln 0.02% 2.5 Ml Vial) 0.5 mg INH Q6R [facility] Stop: 12/10/20 12:59 Last Admin: 11/16/20 07:24 Dose: 0.5 mg Documented by: Levalbuterol HCl (Levalbuterol Tartrate 15 Gm Hfa.Aer.Ad) 1 puffs INH Q4H PRN PRN Reason: Wheezing Stop: 12/09/20 00:56 Levalbuterol HCl (Levalbuterol Hcl 1.25 Mg/3 Ml Neb) 1.25 mg INH Q4H PRN PRN Reason: Wheezing Stop: 12/09/20 00:56 Last Admin: 11/09/20 19:47 Dose: 1.25 mg Documented by: Levalbuterol HCl (Levalbuterol 1.25mg/0.5ml Neb) 1.25 mg INH Q6R [facility] Stop: 12/10/20 12:59 Last Admin: 11/16/20 07:25 Dose: 1.25 mg Documented by: Melatonin (Melatonin 3 Mg Tab) 9 mg PO HS [facility] Stop: 12/09/20 20:59 Last Admin: 11/15/20 20:47 Dose: 9 mg Documented by: Menthol (Cough Drop (Sugar Free) Maximiliano 24 Maximiliano/1 Box) 1 maximiliano BUCCAL PRN PRN PRN Reason: Cough/SORE THROAT Stop: 12/10/20 19:28 Methocarbamol (Methocarbamol 750 Mg Tablet) 750 mg PO TID [facility] Stop: 12/09/20 08:59 Last Admin: 11/16/20 13:23 Dose: 750 mg Documented by: Metoprolol Succinate (Metoprolol Succ 50mg Ext Rel Tab) 100 mg PO BID [facility] Stop: 12/09/20 08:59 Last Admin: 11/16/20 08:16 Dose: 100 mg Documented by: Metoprolol Tartrate (Metoprolol Tartrate 1 Mg/Ml Vial) 2.5 mg IV Q6 PRN PRN Reason: HR > 120 Stop: 12/09/20 17:59 Last Admin: 11/11/20 12:16 Dose: 2.5 mg Documented by: Miconazole Nitrate (Miconazole Nitrate Powder 43 Gm) 1 appln EXT PRN PRN PRN Reason: Affected Skin Folds Stop: 12/13/20 11:20 Miscellaneous (Carbohydrates For Hypoglycemia ) 15 - 30 gm PO UD PRN PRN Reason: Hypoglycemia Protocol Stop: 12/09/20 00:56 Last Admin: 11/09/20 14:25 Dose: 15 gm Documented by: Awais (Check Fentanyl Patch Placement) 1 ea N/A QS [facility] Stop: 12/09/20 00:56 Last Admin: 11/16/20 08:14 Dose: 1 ea Documented by: Awais (Fentanyl Patch Remove & Waste) 1 ea N/A Q72H [facility] Stop: 12/11/20 12:58 Last Admin: 11/14/20 08:11 Dose: 1 ea Documented by: Awais (Remove Nicoderm Patch) 1 ea N/A DAILY@0859 [facility] Stop: 12/10/20 08:58 Last Admin: 11/16/20 08:14 Dose: 1 ea Documented by: Multivitamins (Multivitamin Tab) 1 tab PO QAM [facility] Stop: 12/09/20 08:59 Last Admin: 11/16/20 08:17 Dose: 1 tab Documented by: Nicotine (Nicotine 14 Mg/24 Hr Patch) 14 mg TD QAM [facility] Stop: 12/09/20 10:29 Last Admin: 11/16/20 08:15 Dose: 14 mg Documented by: Nitroglycerin (Nitroglycerin Sl 0.4 Mg/Tab Tab) 0.4 mg SL UD PRN PRN Reason: Chest Pain Stop: 12/09/20 00:56 Oxycodone HCl (Oxycodone Hcl Ir 5 Mg Tab (Immediate Release)) 10 mg PO Q6H PRN PRN Reason: Pain Stop: 11/23/20 00:56 Last Admin: 11/15/20 20:52 Dose: 10 mg Documented by: Pantoprazole Sodium (Pantoprazole 40 Mg Tab) 40 mg PO BID [facility] Stop: 12/09/20 08:59 Last Admin: 11/16/20 08:16 Dose: 40 mg Documented by: Polyethylene Glycol (Polyethylene (Miralax) 17 Gm Pack) 17 gm PO DAILY PRN PRN Reason: Constipation Stop: 12/09/20 00:56 Last Admin: 11/09/20 16:30 Dose: 17 gm Documented by: Polyethylene Glycol (Polyethylene (Miralax) 17 Gm Pack) 17 gm PO DAILY JORGE Stop: 12/09/20 08:59 Last Admin: 11/16/20 08:14 Dose: 17 gm Documented by: Trazodone HCl (Trazodone Hcl 100 Mg Tab) 200 mg PO [facility] Stop: 12/09/20 20:59 Last Admin: 11/15/20 20:43 Dose: 200 mg Documented by: Umeclidinium [place] (Umeclidinium [place] 62.5mcg/Blister 7 Puffs/Inhaler) 1 puffs INH QAM [facility] Stop: 12/09/20 08:59 Last Admin: 11/16/20 08:15 Dose: 1 puffs Documented by: Venlafaxine HCl (Venlafaxine Hcl Xr 150 Mg Capxr) [facility] Stop: 12/09/20 08:59 Last Admin: 11/16/20 08:16 Dose: 150 mg Documented by: Venlafaxine HCl (Venlafaxine Hcl Xr 75 Mg Capxr) 75 mg PO QAM [facility] Stop: 12/09/20 08:59 Last Admin: 11/16/20 08:17 Dose: 75 mg Documented by: Vitamin D (Cholecalciferol 1,000 Units 25 Mcg Tab) 1,000 units PO QAM [facility] Stop: 12/09/20 08:59 Last Admin: 11/16/20 08:16 Dose: 1,000 units Documented by: Zolpidem Tartrate (Zolpidem Tartrate 5 Mg Tab) 5 mg PO [facility] Stop: 12/09/20 20:59 Last Admin: 11/15/20 20:47 Dose: 5 mg Documented by:
[2020-11-16] MEDS: ATORVASTATIN 40 MG TAB PO SCH (21:43)
[2020-11-16] MEDS: AMITRIPTYLINE HCL 50 MG TAB PO SCH (21:43)
[2020-11-16] MEDS: traZODone HCL 100 MG TAB PO SCH (21:43)
[2020-11-16] MEDS: CETIRIZINE HCL 10 MG TABLET PO SCH (21:44)
[2020-11-16] MEDS: MELATONIN 3 MG TAB PO SCH (21:53)
[2020-11-16] MEDS: ZOLPIDEM TARTRATE 5 MG TAB PO SCH (21:53)
[2020-11-17] MEDS: IPRATROPIUM BROMIDE NEB SOLN 0.02% 2.5 ML VIAL INH SCH ×3 (00:29→12:45)
[2020-11-17] MEDS: LEVALBUTEROL 1.25MG/0.5ML NEB INH SCH ×3 (00:29→12:45)
[2020-11-17] MEDS: CHECK fentaNYL PATCH PLACEMENT SCH ×2 (01:03→08:32)
[2020-11-17 06:56] LABS: Calcium 9.1 mg/dl (8.5-10.1); Creatinine Clr Calc Pharmacy 34.7 ml/min; Est GFR (African American) 32.4; Est GFR (Non-African American) 27.9; Magnesium 2.1 mg/dl (1.8-2.4); Potassium 3.8 mmol/L (3.5-5.1)
[2020-11-17] MEDS: METOPROLOL SUCC 50MG EXT REL TAB PO SCH (08:27)
[2020-11-17] MEDS: VENLAFAXINE HCL XR 150 MG CAPXR PO SCH (08:27)
[2020-11-17] MEDS: METHOCARBAMOL 750 MG TABLET PO SCH (08:27)
[2020-11-17] MEDS: dilTIAZem HCL 240 MG CAPCR PO SCH (08:28)
[2020-11-17] MEDS: CHOLECALCIFEROL 1,000 UNITS 25 MCG TAB PO SCH (08:29)
[2020-11-17] MEDS: MULTIVITAMIN TAB PO SCH (08:29)
[2020-11-17] MEDS: CALCITRIOL 0.25 MCG CAPSULE PO SCH (08:29)
[2020-11-17] MEDS: NICOTINE 14 MG/24 HR PATCH TD SCH (08:29)
[2020-11-17] MEDS: VENLAFAXINE HCL XR 75 MG CAPXR PO SCH (08:29)
[2020-11-17] MEDS: POLYETHYLENE (MIRALAX) 17 GM PACK PO SCH (08:30)
[2020-11-17] MEDS: GABAPENTIN 800 MG TAB PO SCH (08:30)
[2020-11-17] MEDS: DOCUSATE SODIUM 100 MG CAP PO SCH (08:30)
[2020-11-17] MEDS: PANTOprazole 40 MG TAB PO SCH (08:30)
[2020-11-17] MEDS: APIXABAN 5 MG TABLET PO SCH (08:30)
[2020-11-17] MEDS: FLUTICASONE/VILANTEROL 200/25MCG 14 PUFFS/INHALER INH SCH (08:31)
[2020-11-17] MEDS: UMECLIDINIUM BROMIDE 62.5MCG/BLISTER 7 PUFFS/INHALER INH SCH (08:31)
[2020-11-17] MEDS: INSULIN GLARGINE SOLOSTAR 100 UNITS/ML 3 ML PEN SC SCH (08:31)
[2020-11-17] MEDS: INSULIN ASPART 100 UNITS/ML 3 ML PEN SC SCH ×2 (08:33→12:25)
--- NOTE | 2020-11-17 11:28 | Hospitalist Progress Note ---
Date of Service November 17, 2020 Assessment & Plan (1) Chest pain: (2) Palpitation: Paroxysmal atrial fibrillation On Coumadin INR: 3.2 on 11/15/2020 -Discontinue heparin drip Hold Coumadin for now, may need Coumadin 7.5 and 5 mg alternating daily INR is 1.9 on 11/16/2020 HUSSEIN cardioversion was postponed due to possible left atrial thrombus and difficult to manage anticoagulation with Coumadin She will be given Eliquis 5 mg twice daily to continue and will be reevaluated as an outpatient by the knotting machine operator She may need digoxin to control the heart rate as per the knotting machine operator Cardizem increased to 240 mg p.o. daily for better heart rate control Continue usual metoprolol Remains stable to be discharged home this afternoon Coumadin has been discontinued and Eliquis started SOB Fluid Overload. Acute on chronic diastolic CHF per Admitting Service notes: Pt is 65 y/o F with PMH DM II, HTN, HLD, hypothyroidism, chronic respiratory failure with hypoxia on 2L O2, DARIUS on CPAP, COPD, paroxysmal atrial fibrillation, venous thrombosis, CKD III< Lynn's esophagus, chronic pain, anemia, tobacco use disorder, h/o mitral valve repair, depression presented to ER with c/o CP, SOB. H/O COVID 10/11/20 CXR: Cardiomegaly with pulmonary vascular congestion and unchanged reticular opacities suggestive of pulmonary edema. 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 Lasix 80 mg twice daily on discharge Chronic respiratory failure with hypoxia on oxygen 2 liters. COPD -at baseline 2 L -Continue Breo -She is back to her baseline requirement of oxygen H/O COVID-19 diagnosed on 10/11/2020 -Finished steroids -We will have another Covid test prior to HUSSEIN cardioversion tomorrow -Covid test on 07/04/2021 was negative Headache right sided OLSON/ear ache Unable to fully visualize TM secondary to cerumen -Debrox drops -resolved HTN -Continue diltiazem, metoprolol, Amlodipine DM II A1c: 8.3 on 10/21/20 -Hold home meds -Basal bolus insulin per protocol adjusted ISS to prevent hypoglycemia CKD III Cr: 1.6. -At baseline -Monitor renal functions while on IV Lasix -BUN/creatinine slightly improved at 41/1.87 on 11/17/2020 Sleep apnea -CPAP at bedtime Anxiety and depression -Continue home meds Chronic pain -Continue fentanyl patch, oxycodone prn GERD -Continue PPI DVT Prophylaxis -coumadin Disposition pending lives at home PT OT evaluation, may need inpatient rehab Discharge home this afternoon Admission and Anticipated Discharge Date Admission Date: November 09, 2020 Subjective 11/15/2020 The patient was seen and examined in medical telemetry unit She has been feeling a lot better for the last day or 2 Denies any cardiac symptoms Awaiting HUSSEIN cardioversion tomorrow 11/16/2020 The patient was seen and examined in medical telemetry unit HUSSEIN cardioversion was not performed due to possible left atrial thrombus She denies any symptoms of chest pain, palpitation or shortness of breath 11/17/2020 Patient was seen and examined in medical telemetry unit She has been feeling a lot better denies any cardiac symptoms Denies any other symptoms Review of Systems Review of Systems: All systems reviewed and are unremarkable except as noted below Cardiovascular: no chest pain, no chest pain with activity and no dyspnea Physical Exam Physical Exam: Lying in bed comfortably Constitutional: well developed and well nourished; not ill appearing Eyes: PERRL, conjunctivae normal, anicteric sclerae ENMT: external ear and nose normal, oropharynx normal Neck: trachea midline, no thyromegaly Respiratory: no respiratory distress Auscultation: lungs clear to auscultation bilaterally Cardiovascular: Rate/Rhythm: + irregularly irregular Heart Sounds: no murmur Extremities: no edema Gastrointestinal (Abdomen): Inspection/Auscultation: normal bowel sounds; abdomen not distended Percussion/Palpation: abdomen soft; abdomen nontender Musculoskeletal: No acute arthritis in any joint Neurologic: Alert, awake and oriented x3. No focal sensory and motor deficit appreciated Psychiatric: A+Ox3, euthymic affect Lymphatic: no cervical or axillary lymphadenopathy Results & Data Results & Data ([facility]) Vital Signs (Past 12 Hours) Vital Signs Temp Pulse Pulse Resp BP Pulse Ox 11/17/20 11:18 36.3 C L 102 H 20 107/61 92 11/17/20 07:24 36.5 C 104 H 21 128/91 95 11/17/20 07:01 112 H 18 95 11/17/20 01:02 118 H Laboratory Results BMP 11/17/20 05:40 Sodium 142 Potassium 3.8 Chloride 104 Carbon Dioxide 33 H BUN 41 H Creatinine 1.87 H Glucose 124 H Calcium 9.1 Medications Administered Current Inpatient Medications Acetaminophen (Acetaminophen 325 Mg Tab) 650 mg PO Q4H PRN PRN Reason: Pain or Fever Stop: 12/09/20 00:56 Last Admin: 11/13/20 07:03 Dose: 650 mg Documented by: Al Hydroxide/Mg Trisilicate (Alum Hydrox/Mag Trisilicate Chew) 1 tab PO TID PRN PRN Reason: Reflux Stop: 12/09/20 00:56 Last Admin: 11/09/20 14:02 Dose: 1 tab Documented by: Amitriptyline HCl (Amitriptyline Hcl 50 Mg Tab) 50 mg PO HS [facility] Stop: 12/09/20 20:59 Last Admin: 11/16/20 21:43 Dose: 50 mg Documented by: Apixaban (Apixaban 5 Mg Tablet) 5 mg PO BID JORGE Stop: 12/16/20 11:29 Last Admin: 11/17/20 08:30 Dose: 5 mg Documented by: Atorvastatin Calcium (Atorvastatin 40 Mg Tab) 40 mg PO HS [facility] Stop: 12/09/20 20:59 Last Admin: 11/16/20 21:43 Dose: 40 mg Documented by: Calcitriol (Calcitriol 0.25 Mcg Capsule) 0.25 mcg PO MoWeFr@0900 JORGE Stop: 12/10/20 08:59 Last Admin: 11/17/20 08:29 Dose: 0.25 mcg Documented by: Cetirizine HCl (Cetirizine Hcl 10 Mg Tablet) 10 mg PO HS JORGE Stop: 12/09/20 20:59 Last Admin: 11/16/20 21:44 Dose: 10 mg Documented by: Dextrose (Dextrose 50% 50 Ml Syringe) 25 - 50 ml IV UD PRN; Protocol PRN Reason: Hypoglycemia Protocol Stop: 12/09/20 00:56 Diltiazem HCl (Diltiazem Hcl 240 Mg Capcr) 240 mg PO QAM JORGE Stop: 12/11/20 08:59 Last Admin: 11/17/20 08:28 Dose: 240 mg Documented by: Docusate Sodium (Docusate Sodium 100 Mg Cap) 100 mg PO BID JORGE Stop: 12/09/20 08:59 Last Admin: 11/17/20 08:30 Dose: 100 mg Documented by: Fentanyl (Fentanyl 50 Mcg/Hr Tdsy) 50 mcg TD Q72H [facility] Stop: 11/25/20 12:59 Last Admin: 11/14/20 12:18 Dose: 50 mcg Documented by: Fluticasone/Vilanterol (Fluticasone/Vilanterol 200/25mcg 14 Puffs/Inhaler) 1 puffs INH DAILY JORGE Stop: 12/09/20 08:59 Last Admin: 11/17/20 08:31 Dose: 1 puffs Documented by: Gabapentin (Gabapentin 800 Mg Tab) 800 mg PO BID [facility] Stop: 12/09/20 08:59 Last Admin: 11/17/20 08:30 Dose: 800 mg Documented by: Glucagon (Glucagon For Inj 1 Mg Vial) 1 mg SQ UD PRN; Protocol PRN Reason: Hypoglycemia Protocol Stop: 12/09/20 00:56 Glucose (Glucose 10 Tabs/Tube) 4 - 8 tabs PO UD PRN; Protocol PRN Reason: Hypoglycemia Protocol Stop: 12/09/20 00:56 Glucose (Glucose 40% Gel 15 Gm Tube) 15 - 30 gm PO UD PRN; Protocol PRN Reason: Hypoglycemia Protocol Stop: 12/09/20 00:56 Promethazine HCl 6.25 mg/ (Sodium Chloride) 50.25 mls @ 201 mls/hr IV Q6H PRN PRN Reason: Nausea And Vomiting Stop: 12/11/20 18:50 Insulin Aspart (Insulin Aspart 100 Units/Ml 3 Ml Pen) 0 units SC ACHS JORGE Stop: 12/09/20 01:29 Last Admin: 11/17/20 08:33 Dose: 2 units Documented by: Insulin Glargine (Insulin Glargine Solostar 100 Units/Ml 3 Ml Pen) 10 units SC BID [facility] Stop: 12/09/20 01:29 Last Admin: 11/17/20 08:31 Dose: 10 units Documented by: Ipratropium [place] (Ipratropium [place] Neb Soln 0.02% 2.5 Ml Vial) 0.5 mg INH Q6R [facility] Stop: 12/10/20 12:59 Last Admin: 11/17/20 07:00 Dose: 0.5 mg Documented by: Levalbuterol HCl (Levalbuterol Tartrate 15 Gm Hfa.Aer.Ad) 1 puffs INH Q4H PRN PRN Reason: Wheezing Stop: 12/09/20 00:56 Levalbuterol HCl (Levalbuterol Hcl 1.25 Mg/3 Ml Neb) 1.25 mg INH Q4H PRN PRN Reason: Wheezing Stop: 12/09/20 00:56 Last Admin: 11/09/20 19:47 Dose: 1.25 mg Documented by: Levalbuterol HCl (Levalbuterol 1.25mg/0.5ml Neb) 1.25 mg INH Q6R [facility] Stop: 12/10/20 12:59 Last Admin: 11/17/20 07:00 Dose: 1.25 mg Documented by: Melatonin (Melatonin 3 Mg Tab) 9 mg PO HS [facility] Stop: 12/09/20 20:59 Last Admin: 11/16/20 21:53 Dose: 9 mg Documented by: Menthol (Cough Drop (Sugar Free) Maximiliano 24 Maximiliano/1 Box) 1 maximiilano BUCCAL PRN PRN PRN Reason: Cough/SORE THROAT Stop: 12/10/20 19:28 Methocarbamol (Methocarbamol 750 Mg Tablet) 750 mg PO TID [facility] Stop: 12/09/20 08:59 Last Admin: 11/17/20 08:27 Dose: 750 mg Documented by: Metoprolol Succinate (Metoprolol Succ 50mg Ext Rel Tab) 100 mg PO BID [facility] Stop: 12/09/20 08:59 Last Admin: 11/17/20 08:27 Dose: 100 mg Documented by: Metoprolol Tartrate (Metoprolol Tartrate 1 Mg/Ml Vial) 2.5 mg IV Q6 PRN PRN Reason: HR > 120 Stop: 12/09/20 17:59 Last Admin: 11/11/20 12:16 Dose: 2.5 mg Documented by: Miconazole Nitrate (Miconazole Nitrate Powder 43 Gm) 1 appln EXT PRN PRN PRN Reason: Affected Skin Folds Stop: 12/13/20 11:20 Miscellaneous (Carbohydrates For Hypoglycemia ) 15 - 30 gm PO UD PRN PRN Reason: Hypoglycemia Protocol Stop: 12/09/20 00:56 Last Admin: 11/09/20 14:25 Dose: 15 gm Documented by: Awais (Check Fentanyl Patch Placement) 1 ea N/A QS [facility] Stop: 12/09/20 00:56 Last Admin: 11/17/20 08:32 Dose: 1 ea Documented by: Awais (Fentanyl Patch Remove & Waste) 1 ea N/A Q72H [facility] Stop: 12/11/20 12:58 Last Admin: 11/14/20 08:11 Dose: 1 ea Documented by: Awais (Remove Nicoderm Patch) 1 ea N/A DAILY@0859 [facility] Stop: 12/10/20 08:58 Last Admin: 11/17/20 08:31 Dose: 1 ea Documented by: Multivitamins (Multivitamin Tab) 1 tab PO QAM [facility] Stop: 12/09/20 08:59 Last Admin: 11/17/20 08:29 Dose: 1 tab Documented by: Nicotine (Nicotine 14 Mg/24 Hr Patch) 14 mg TD QAM [facility] Stop: 12/09/20 10:29 Last Admin: 11/17/20 08:29 Dose: 14 mg Documented by: Nitroglycerin (Nitroglycerin Sl 0.4 Mg/Tab Tab) 0.4 mg SL UD PRN PRN Reason: Chest Pain Stop: 12/09/20 00:56 Oxycodone HCl (Oxycodone Hcl Ir 5 Mg Tab (Immediate Release)) 10 mg PO Q6H PRN PRN Reason: Pain Stop: 11/23/20 00:56 Last Admin: 11/15/20 20:52 Dose: 10 mg Documented by: Pantoprazole Sodium (Pantoprazole 40 Mg Tab) 40 mg PO BID [facility] Stop: 12/09/20 08:59 Last Admin: 11/17/20 08:30 Dose: 40 mg Documented by: Polyethylene Glycol (Polyethylene (Miralax) 17 Gm Pack) 17 gm PO DAILY PRN PRN Reason: Constipation Stop: 12/09/20 00:56 Last Admin: 11/09/20 16:30 Dose: 17 gm Documented by: Polyethylene Glycol (Polyethylene (Miralax) 17 Gm Pack) 17 gm PO DAILY [facility] Stop: 12/09/20 08:59 Last Admin: 11/17/20 08:30 Dose: 17 gm Documented by: Trazodone HCl (Trazodone Hcl 100 Mg Tab) 200 mg PO [facility] Stop: 12/09/20 20:59 Last Admin: 11/16/20 21:43 Dose: 200 mg Documented by: Umeclidinium [place] (Umeclidinium [place] 62.5mcg/Blister 7 Puffs/Inhaler) [facility] [place] Stop: 12/09/20 08:59 Last Admin: 11/17/20 08:31 Dose: 1 puffs Documented by: Venlafaxine HCl (Venlafaxine Hcl Xr 150 Mg Capxr) [facility] [place] Stop: 12/09/20 08:59 Last Admin: 11/17/20 08:27 Dose: 150 mg Documented by: Venlafaxine HCl (Venlafaxine Hcl Xr 75 Mg Capxr) 75 [facility] [place] Stop: 12/09/20 08:59 Last Admin: 11/17/20 08:29 Dose: 75 mg Documented by: Vitamin D (Cholecalciferol 1,000 Units 25 Mcg Tab) 1,000 [facility] [place] Stop: 12/09/20 08:59 Last Admin: 11/17/20 08:29 Dose: 1,000 units Documented by: Zolpidem Tartrate (Zolpidem Tartrate 5 Mg Tab) 5 mg PO [facility] Stop: 12/09/20 20:59 Last Admin: 11/16/20 21:53 Dose: 5 mg Documented by:
[2020-11-17] MEDS: fentaNYL 50 MCG/HR TDSY TD SCH (12:26)
--- NOTE | 2020-11-17 13:56 | Cardiology Progress Note ---
Date of Service November 17, 2020 Assessment & Plan (1) Atrial flutter: Patient admitted with multifactorial shortness of breath with COPD exacerbation, COVID-19 pneumonia about a month ago. 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 She has a history of complex atrial arrhythmias and had undergone right-sided atrial flutter ablation several years ago. She had reverted to what appears to be recurrent typical atrial flutter. After optimization from the respiratory standpoint, transesophageal echocardiogram guided direct-current cardioversion was planned. Time of transesophageal echocardiogram yesterday 11/16/2020, severe spontaneous echo contrast noted in the left atrium and left atrial appendage, with filling defect in the left atrial appendage consistent with appendage thrombus. She has had recent supratherapeutic and subtherapeutic INR levels. We will transition her to Eliquis 5 mg twice daily. Continue rate control with metoprolol 100 mg twice daily, diltiazem CD 240 mg daily, diltiazem dose increased from her prior to hospital dose of 180 mg daily. Discharge on her prior to hospital dose of furosemide 80 mg twice daily. Although future considerations could include repeat transesophageal echo with subsequent cardioversion, or even consideration of repeat flutter ablation, or pacemaker placement and AV junction ablation, I am not certain that any of these steps would alter the patient's trajectory. Echocardiogram continues to reveal cor pulmonale physiology with right ventricular chamber enlargement, interventricular septal flattening consistent with RV pressure overload, and I think her right ventricular systolic dysfunction is a marker of her underlying significant lung disease. Plan for outpatient cardiology follow-up. Admission and Anticipated Discharge Date Admission Date: November 09, 2020 Subjective Ms Minaya is seen in cardiology follow up of her chief complain of shortness of breath. She feels well. No complaints. Tolerating Eliquis thus far. Physical Exam Physical Exam: Temp Pulse Resp BP Pulse Ox 36.3 C L 117 H 18 107/61 96 11/17/20 11:18 11/17/20 12:47 11/17/20 12:47 11/17/20 11:18 11/17/20 12:47 Constitutional: no acute distress Respiratory: Coarse breath sounds are clear with cough, no rales Cardiovascular: Rate/Rhythm: + tachycardic Heart Sounds: no murmur Vessels: no JVD Extremities: no edema Gastrointestinal (Abdomen): normal bowel sounds, soft, nontender, no hepatosplenomegaly Neurologic: PERRL, EOMI, accommodation nl, no face palsy, no dysarthria Results & Data ([facility]) Vital Signs (Past 12 Hours) Vital Signs Temp Pulse Pulse Resp BP Pulse Ox 11/17/20 12:47 117 H 18 96 11/17/20 11:18 36.3 C L 102 H 20 107/61 92 11/17/20 07:24 36.5 C 104 H 21 128/91 95 11/17/20 07:01 112 H 18 95
--- NOTE | 2020-11-18 08:36 | Discharge Summary ---
Date of Service November 18, 2020 Admission HPI Per Admitting Provider Pt is 65 y/o F with PMH DM II, HTN, HLD, hypothyroidism, chronic respiratory failure with hypoxia on 2L O2, DARIUS on CPAP, COPD, paroxysmal atrial fibrillation, venous thrombosis, CKD III< Lynn's esophagus, chronic pain, anemia, tobacco use disorder, h/o mitral valve repair, depression presented to ER with c/o CP, SOB. Pt with h/o diagnosed with COVID on 10/11/20. H/O hospitalization10/21/20-10/24/20 for CP and OLSON and had cardiology consult and was thought secondary to underlying illness. Hospitalization 10/25/20-10/30/20 for CP with negative troponin and was thought secondary to GERD. Pt states having intermittent CP. She is unable to fully describe pain at this time. Feels occurs more with exertion of walking around in house. Reports intermittent palpitations. Sometimes has CP with palpitations but reports mostly palpitations occur without other symptoms. Reports checked pulse at home and was up to 145. Also c/o increased SOB and orthopnea. Reports weight has been up to 225, 229 and feels has increased BLE edema. Cardiology increased Lasix back to 80mg BID and placed pt on 2L fluid restriction and low sodium diet. Cardiolgy increased diltiazem to 180mg daily and started metoprolol succinate 100mg BID. States initially felt like had some improvement but feels worse again. Denies fever/chills. Is off of steroids currently. Has chronic cough and intermittent wheezing that she feels is at baseline. Also c/o right sided OLSON feels around right ear and travels up side of head. Denies any known ear discharge. On Augmentin for possible infection. Denies fever/chills, diaphoresis, N/V/D/C, dizziness, syncope, vision changes, neck pain, sore throat, choking, otalgia, rhinorrhea, abdominal pain, paresthesias, extremity weakness, rashes, urinary symptoms. Admission Exam Per Admitting Provider Physical Exam: General: no distress, obese Head: normocephalic, atraumatic Eyes: PERRL, EOM's intact, conjunctiva non-injected, anicteric ENT: normal inspection external ears, bilateral ear canals with cerumen, unable to fully visualize TM's, nose, mucous membranes moist; no temporal region tenderness to palpation Neck: supple, trachea midline Lungs:diminished breath sounds throughout CV: RRR, no murmur, 2+ pretibial edema Abd: normal BS, protuberant, soft, non-tender Ext: no cyanosis, no calf tenderness Neuro: A&O x 3, no focal deficits noted, normal affect Skin: warm, dry Principal Diagnosis Chest pain-no ACS, paroxysmal atrial fibrillation, acute on chronic diastolic heart failure, chronic respiratory failure on home O2 Discharge Exam Constitutional well developed and well nourished; not ill appearing Eyes PERRL, conjunctivae normal, anicteric sclerae ENMT external ear and nose normal, oropharynx normal Neck trachea midline, no thyromegaly Respiratory no respiratory distress Auscultation: lungs clear to auscultation bilaterally Cardiovascular Rate/Rhythm: + irregularly irregular Heart Sounds: no murmur Extremities: no edema Gastrointestinal (Abdomen) Inspection/Auscultation: normal bowel sounds; abdomen not distended Percussion/Palpation: abdomen soft; abdomen nontender Psychiatric A+Ox3, euthymic affect Lymphatic no cervical or axillary lymphadenopathy Discharge Data Allergies Allergy/AdvReac Type Severity Reaction Status Date / Time bee venom protein (honey bee) Allergy Severe SWELLING Verified 10/29/20 20:53 lisinopril Allergy Intermediate FACE Verified 10/29/20 20:53 SWELLING potato Allergy Intermediate BBQ chips Verified 10/29/20 20:53 - facial swelling metronidazole Allergy Mild FACE Verified 10/29/20 20:53 SWELLING strawberry Allergy Mild HIVES Verified 10/29/20 20:53 alprazolam Allergy Unknown RED FACE, Verified 10/29/20 20:53 FACE SWELLING lactose AdvReac Intermediate VOMTING Verified 10/29/20 20:53 DIARRHEA ABDOMINAL PAIN-LACTOSE INTOLERANCE prednisone AdvReac Mild AGGRESSIVE Verified 10/29/20 20:53 BEHAVIOR colesevelam AdvReac Unknown unknown Verified 10/29/20 20:53 lithium AdvReac Unknown jitters Verified 10/29/20 20:53 Consultations 11/08/20 22:05 ED Decision to Admit Stat 11/09/20 00:57 Consult Cardiology Routine Consult Case Management - Discharge Planning Routine 11/14/20 14:26 Consult Anesthesiology Routine Procedures Performed Operation Date: 11/16/20 08:15 Actual Procedures p Echo Transesophageal - [place] J Kj, DO s Echo Color Flow - [place] Underwood DO s Echo Doppler Complete - [place] Underwood DO Ordered Studies 11/10/20 14:49 CT chest diagnostic wo con Routine Hospital Course (1) Chest pain: (2) Palpitation: Paroxysmal atrial fibrillation On Coumadin INR: 3.2 on 11/15/2020 -Discontinue heparin drip Hold Coumadin for now, may need Coumadin 7.5 and 5 mg alternating daily INR is 1.9 on 11/16/2020 [facility] cardioversion was postponed due to possible left atrial thrombus and difficult to manage anticoagulation with Coumadin She will be given Eliquis 5 mg twice daily to continue and will be reevaluated as an outpatient by the it portfolio manager She may need digoxin to control the heart rate as per the it portfolio manager Cardizem increased to 240 mg p.o. daily for better heart rate control Continue usual metoprolol Remains stable to be discharged home this afternoon Coumadin has been discontinued and Eliquis started SOB Fluid Overload. Acute on chronic diastolic CHF per Admitting Service notes: Pt is 65 y/o F with PMH DM II, HTN, HLD, hypothyroidism, chronic respiratory failure with hypoxia on 2L O2, DARIUS on CPAP, COPD, paroxysmal atrial fibrillation, venous thrombosis, CKD III< Lynn's esophagus, chronic pain, anemia, tobacco use disorder, h/o mitral valve repair, depression presented to ER with c/o CP, SOB. H/O COVID 10/11/20 CXR: Cardiomegaly with pulmonary vascular congestion and unchanged reticular opacities suggestive of pulmonary edema. 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 Lasix 80 mg twice daily on discharge Chronic respiratory failure with hypoxia on oxygen 2 liters. COPD -at baseline 2 L -Continue Breo -She is back to her baseline requirement of oxygen H/O COVID-19 diagnosed on 10/11/2020 -Finished steroids -We will have another Covid test prior to [facility] cardioversion tomorrow -Covid test on 07/04/2021 was negative Headache right sided OLSON/ear ache Unable to fully visualize TM secondary to cerumen -Debrox drops -resolved HTN -Continue diltiazem, metoprolol, Amlodipine DM II A1c: 8.3 on 10/21/20 -Hold home meds -Basal bolus insulin per protocol adjusted ISS to prevent hypoglycemia CKD III Cr: 1.6. -At baseline -Monitor renal functions while on IV Lasix -BUN/creatinine slightly improved at 41/1.87 on 11/17/2020 Sleep apnea -CPAP at bedtime Anxiety and depression -Continue home meds Chronic pain -Continue fentanyl patch, oxycodone prn GERD -Continue PPI DVT Prophylaxis -coumadin Disposition pending lives at home PT OT evaluation, may need inpatient rehab Discharge home this afternoon Total Time Total Time Spent Total Time Spent (In Minutes): 35 minutes Total Time Includes: Examination of the Patient, Discharge Planning, Medication Reconciliation and Communication With Other Providers Discharge Plan Discharge Items Patient Disposition: Home - Self-Care Reason For Visit: CHEST PAIN Discharge Diagnosis: Chest pain-no ACS, paroxysmal atrial fibrillation, acute on chronic diastolic heart failure, chronic respiratory failure on home O2 Condition on Discharge: Good Activity: Resume your previous activity Non-emergency contact: Primary Care Provider Call non-emergency contact if: you have any medication questions and your symptoms worsen Follow-up/Referrals: Manoj Goins, [Primary Care Provider] - (Date & Time 11/21/2020 2:00 PM Provider Robinson Rosado PA-C Department General Internal Medicine [facility] ) Diet: Carb Consistent or DM2 and Heart Healthy Addtl Attending Provider Instructions: Please take precautions to avoid fall Do not take any more Coumadin Continue with Eliquis as directed Please keep appointment with your it portfolio manager Pending Studies at Discharge: No Stand-Alone Forms: My [employer], Smoking Cessation Medications and DC Order Prescriptions: New Eliquis 5 mg tablet 5 mg PO BID Qty: 60 RF: 0 diltiazem HCl 240 mg Capsule,Extended Release 24hr 240 mg PO QAM Qty: 30 RF: 0 nicotine 14 mg/24 hr patch 24 hour 1 patch transdermal DAILY Qty: 28 RF: 0 Continued gabapentin 800 mg Tablet 800 mg PO BID RF: 0 alendronate 70 mg tablet 70 mg PO WK RF: 0 potassium chloride 10 mEq tablet extended release 40 meq PO TID RF: 0 Lantus U-100 Insulin 100 unit/mL solution 18 unit SUBCUT BID RF: 0 oxycodone 10 mg tablet 10 mg PO Q6H PRN (Reason: Pain) RF: 0 nitroglycerin [Nitrostat] 0.4 mg tablet, sublingual 0.4 mg sublingual DIRECTED PRN (Reason: Chest Pain) RF: 0 amoxicillin-pot clavulanate [Augmentin] 875-125 mg tablet 1 tab PO BID Qty: 14 RF: 0 multivitamin Tablet 1 tab PO QAM RF: 0 atorvastatin 40 mg Tablet 40 mg PO HS RF: 0 fentanyl 50 mcg/hr Patch 72 Hour 50 mcg TRANSDERMAL [id number] RF: 0 cetirizine 10 mg Tablet 10 mg PO HS RF: 0 venlafaxine 150 mg Capsule,Extended Release 24hr 150 mg PO QAM RF: 0 ondansetron 8 mg Tablet,Disintegrating 8 mg PO BID PRN (Reason: Nausea) RF: 0 methocarbamol 750 mg Tablet 750 mg PO TID RF: 0 epinephrine [EpiPen] 0.3 mg/0.3 mL Auto-Injector 0.3 mg IM DIRECTED PRN (Reason: Allergic Reaction) RF: 0 docusate sodium 100 mg Tablet 100 mg PO BID RF: 0 Spiriva with HandiHaler 18 mcg Capsule, W/Inhalation Device 1 cap INHALATION QAM RF: 0 cholecalciferol (vitamin D3) [Vitamin D3] 1,000 unit Tablet 1,000 unit PO QAM RF: 0 venlafaxine 75 mg Capsule,Extended Release 24hr 75 mg PO QAM RF: 0 trazodone 100 mg Tablet 200 mg PO HS RF: 0 zolpidem 5 mg Tablet 5 mg PO HS RF: 0 levalbuterol HCl 1.25 mg/3 mL solution for nebulization 1.25 mg INHALATION Q4H PRN (Reason: Wheezing) RF: 0 albuterol sulfate [Proventil HFA] 90 mcg/actuation HFA aerosol inhaler 2 puffs INH Q6H PRN (Reason: Shortness Of Breath Or Wheezing) RF: 0 fluticasone propion-salmeterol [Advair Diskus] 250-50 mcg/dose blister with device 1 inh INHALATION BID RF: 0 calcitriol 0.25 mcg capsule 0.25 mcg PO DIRECTED RF: 0 acetaminophen 500 mg Tablet 500 mg PO Q6H PRN (Reason: Pain, Mild/Moderate) RF: 0 pantoprazole 40 mg tablet,delayed release (DR/EC) 40 mg PO BID RF: 0 metoprolol succinate 100 mg tablet extended release 24 hr 100 mg PO BID RF: 0 Gaviscon 80-14.2 mg tablet,chewable 1 tab PO TID PRN (Reason: Reflux) RF: 0 prednisone 20 mg tablet See Rx Instructions .ROUTE .COMPLEX PRN (Reason: Rescue Kit) RF: 0 prochlorperazine maleate [Compazine] 10 mg Tablet 10 mg PO Q6H PRN (Reason: Nausea) RF: 0 amitriptyline 50 mg Tablet 50 mg PO HS RF: 0 benzonatate 100 mg Capsule 100 mg PO TID PRN (Reason: Cough) RF: 0 polyethylene glycol 3350 17 gram/dose Powder 17 g PO DAILY RF: 0 levalbuterol tartrate [Xopenex HFA] 45 mcg/actuation Hfa Aerosol Inhaler 1 puff INHALATION Q4H PRN (Reason: Wheezing) RF: 0 melatonin 10 mg Tablet 10 mg PO HS RF: 0 furosemide 40 mg tablet 80 mg PO BID RF: 0 Discontinued warfarin 5 mg tablet 7.5 mg PO WK RF: 0 amlodipine 5 mg tablet 5 mg PO QAM RF: 0 warfarin 5 mg Tablet 5 mg PO [id number] RF: 0 diltiazem HCl 180 mg Capsule,Extended Release 24hr 180 mg PO QAM 30 Days Qty: 30 RF: 0 Discharge Orders: Discharge Order (Routine); Ordered 11/17/20 Ordered By: Dee Hollins/Other Patient Handouts: Eating Heart-Healthy Foods Admission Data Admit Date/Time: 11/09/20 16:01 Attending Provider: Dee Sierra Admit Provider: Ashleigh Humphrey Primary Care Provider: Manoj Goins Other Providers: Ashleigh Humphrey ; Apollo Figueroa ; Jun Douglas ; Abdelrahman Moreau Other Interventions: Discharge Summary Assessment (RN) Last Done: 11/17/20 14:11
--- NOTE | 2020-11-22 09:36 | Coding Query ---
To promote full compliance with coding requirements relating to patient care, provider participation is requested in all cases of destination coordinator uncertainty. Please assist us with the question(s) below: Coding Question(s): The diagnosis below was documented in the 11/16/20 [facility] report and in the 11/16/20 Communication Note with documentation of, "Patient has had recent labile INR readings with both supratherapeutic and subtherapeutic INR measurements. Due to her multiple recent illnesses, and suspected hypercoagulable state in the setting of recent COVID-19 pneumonia, her anticoagulation is felt to have been suboptimal.", then subsequently fell off all further documentation and is not documented on Discharge Summary. Please indicate if it is still a possible diagnosis or ruled out and please specify further if diagnosed, regarding the meaning of "in the setting of recent COVID-19 Pneumonia". Physician's Response(s): HYPERCOAGULABLE STATE IN THE SETTING OF RECENT COVID-19 PNEUMONIA ( ) Diagnosed and POA - Please specify further below, in your clinical opinion: ( ) in the setting of recent COVID-19 Pneumonia means sequela of COVID-19 Pneumonia is the source of Hypercoagulable State ( ) in the setting of recent COVID-19 Pneumonia means history only of COVID-19 Pneumonia, not the likely source of Hypercoagulable State ( ) in the setting of recent COVID-19 Pneumonia means current Acute COVID-19 Pneumonia is the source of Hypercoagulable State ( ) Diagnosed and not POA, Please specify further below, in your clinical opinion: ( ) in the setting of recent COVID-19 Pneumonia means sequela of COVID-19 Pneumonia is the source of Hypercoagulable State ( ) in the setting of recent COVID-19 Pneumonia means history only of COVID-19 Pneumonia, not the likely source of Hypercoagulable State ( ) in the setting of recent COVID-19 Pneumonia means current Acute COVID-19 Pneumonia is the source of Hypercoagulable State ( ) Ruled out (+ ) Other (please specify) Her COVID-19 was diagnosed on October 11 and she was treated adequately. Her recent admission was unrelated due to COVID-19 infection in August. It will be very hard for me in the document that she has had any kind of hypercoagulable state secondary to her COVID-19 infection in September. NITHYAD
== END 2020-11-17 15:10 | disposition home or self-care (01) | DRG 291 ==
LOC: ED 18:38 → 2N 18:38 → INTOOBSV 22:04 → SUATTDRO 22:04 → 2N 11-09 00:21 → SUATTDRO 11-09 16:01

== ENCOUNTER 2021-01-04 13:42 | Inpatient (IN) ==
--- NOTE | 2021-01-04 14:34 | Emergency Department Note ---
History of Present Illness General Chief complaint: Shortness of Breath/Dyspnea Stated complaint: TACHYCARDIA,SOB Time Seen by Provider: 01/04/21 14:18 History of Present Illness Maximum Pain Intensity: 0 This is a 65-year-old female with a complex and extensive past medical history that presents to the emergency department via private vehicle with complaints of "tachycardia, shortness of breath". The patient notes that she was referred here today by her PCP secondary to persistent shortness of breath and tachycardia. The patient notes that she has had tachycardia ongoing for the past few weeks and has been noticing shortness of breath for the past 3 days. She is currently on Eliquis and has not missed any doses. Patient notes that she also notes some mild abdominal pain which has been ongoing for months. She does have associated nausea and diarrhea. She denies any fevers, chills, vomiting, chest pain or cough. Current discomfort overall at this time is a 0/10. Home Medications Medication Instructions Recorded Confirmed Type Spiriva with HandiHaler 1 cap INHALATION QAM 06/19/18 01/04/21 History atorvastatin 40 mg PO HS 06/19/18 01/04/21 History cetirizine 10 mg PO HS 06/19/18 01/04/21 History cholecalciferol (vitamin D3) 1,000 unit PO QAM 06/19/18 01/04/21 History [Vitamin D3] docusate sodium 100 mg PO BID 06/19/18 01/04/21 History epinephrine [EpiPen] 0.3 mg IM DIRECTED PRN 06/19/18 01/04/21 History fentanyl 50 mcg TRANSDERMAL [id number] 06/19/18 01/04/21 History methocarbamol 750 mg PO TID 06/19/18 01/04/21 History multivitamin 1 tab PO QAM 06/19/18 01/04/21 History ondansetron 8 mg PO BID PRN 06/19/18 01/04/21 History venlafaxine 150 mg PO QAM 06/19/18 01/04/21 History trazodone 200 mg PO HS 09/14/18 01/04/21 History venlafaxine 75 mg PO QAM 09/14/18 01/04/21 History zolpidem 5 mg PO HS 09/14/18 01/04/21 History gabapentin 800 mg PO BID 05/28/19 01/04/21 History Lantus U-100 Insulin 18 unit SUBCUT BID 03/02/20 01/04/21 History potassium chloride 40 meq PO DAILY 03/02/20 01/04/21 History levalbuterol HCl 1.25 mg INHALATION Q4H PRN 03/24/20 01/04/21 History nitroglycerin [Nitrostat] 0.4 mg SUBLINGUAL DIRECTED PRN 07/02/20 01/04/21 H istory oxycodone 10 mg PO Q6H PRN 07/02/20 01/04/21 History fluticasone propion-salmeterol 1 inh INHALATION BID 08/01/20 01/04/21 History [Advair Diskus] calcitriol 0.25 mcg PO 3XWK 10/21/20 01/04/21 History Gaviscon 1 tab PO TID PRN 11/08/20 01/04/21 History acetaminophen 500 mg PO Q6H PRN 11/08/20 01/04/21 History amitriptyline 50 mg PO HS 11/08/20 01/04/21 History benzonatate 100 mg PO TID PRN 11/08/20 01/04/21 History furosemide 80 mg PO BID 11/08/20 01/04/21 History melatonin 10 mg PO HS 11/08/20 01/04/21 History metoprolol succinate 100 mg PO BID 11/08/20 01/04/21 History pantoprazole 40 mg PO DAILYBB 11/08/20 01/04/21 History polyethylene glycol 3350 17 g PO DAILY 11/08/20 01/04/21 History prochlorperazine maleate 10 mg PO Q6H PRN 11/08/20 01/04/21 History [Compazine] apixaban [Eliquis] 5 mg PO BID #60 tab 11/16/20 01/04/21 Rx ammonium lactate 1 applic TOPICAL DAILY 01/04/21 01/04/21 History digoxin 125 mcg PO 3XWK 01/04/21 01/04/21 History diltiazem HCl 240 mg PO BID 01/04/21 01/04/21 History imiquimod [Aldara] 1 applic TOPICAL HS 01/04/21 01/04/21 History levalbuterol tartrate [Xopenex HFA] 1 puff INHALATION Q4H PRN 01/04/21 01/04/21 History nystatin 1 applic TOPICAL TID 01/04/21 01/04/21 History Allergies Allergy/AdvReac Type Severity Reaction Status Date / Time bee venom protein (honey bee) Allergy Severe SWELLING Verified 01/04/21 16:00 lisinopril Allergy Severe ANGIOEDEMA, Verified 01/04/21 16:00 FACIAL CELLULITIS, RASH strawberry Allergy Severe LIPS, Verified 01/04/21 16:00 TONGUE, FACE SWELLS alprazolam Allergy Intermediate RED FACE, Verified 01/04/21 16:00 FACE SWELLING potato Allergy Intermediate BBQ chips Verified 01/04/21 16:00 - facial swelling alendronate sodium Allergy Unknown ON [facility] MED Verified 01/04/21 16:00 LIST colesevelam AdvReac Intermediate Abdominal Verified 01/04/21 16:00 Pain lactose AdvReac Intermediate VOMTING Verified 01/04/21 16:00 DIARRHEA ABDOMINAL PAIN-LACTOSE INTOLERANCE lithium AdvReac Intermediate jitters Verified 01/04/21 16:00 metronidazole AdvReac Intermediate ABD PAIN, Verified 01/04/21 16:00 WEAKNESS, NAUSEA, VOMITING prednisone AdvReac Mild AGGRESSIVE Verified 01/04/21 16:00 BEHAVIOR Past Med/Surg History Medical History Anxiety Asthma 3LPM via n/c mostly continuous (although patient states she does not wear this all the time) Atrial fibrillation a. fib/a. flutter s/p cardioversion (2017) Atrial flutter Lynn esophagus Bipolar disorder Chronic back pain Chronic cor pulmonale Chronic hyponatremia Chronic kidney disease stage III Chronic obstructive pulmonary disease 3LPM via n/c mostly continuous (although patient states she does not wear this all the time) Chronic pain Chronic respiratory failure Chronic respiratory failure with hypoxia, on home oxygen therapy CKD (chronic kidney disease), stage III Compression fracture of T3 vertebra COVID-19 virus detected + 10/11/20 COVID-19 virus infection CVA (cerebral vascular accident) 2004 (per records; patient denies) Depression Diastolic CHF, chronic DM type 2 (diabetes mellitus, type 2) Fibromyalgia Gastroparesis GERD (gastroesophageal reflux disease) History of cardioversion History of Clostridium difficile infection History of DVT (deep vein thrombosis) left "hand" 2004- on AC HTN (hypertension) Hyperlipidemia Hypothyroidism no current medication per doctor orders. 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 Obesity Osteoarthritis Peripheral neuropathy Post traumatic stress disorder Pulmonary HTN Severe obstructive sleep apnea Surgical History History of adenoidectomy History of appendectomy LAPAROSCOPY History of cardiac cath 2004= no stents History of carpal tunnel release left History of cataract surgery BILATERAL History of cholecystectomy LAPAROSCOPY History of colonoscopy History of esophagogastroduodenoscopy (EGD) History of hysterectomy EMIGDIO WITH BSO History of mitral valve repair 2004 + resection fibroelastoma History of tonsillectomy Hx of lumpectomy right breast BENIGN Hx of tubal ligation Hx of umbilical hernia repair S/P trigger finger release RIGHT/LEFT Family History Mother Family history of diabetes mellitus Sister Family history of diabetes mellitus Ulcerative colitis Social History Smoking Status: Current every day smoker Tobacco Type: Cigarettes Cigarettes Per Day: 8; Second Hand Exposure: No; Do You Dip or Chew Tobacco: No; Tobacco Cessation Education Requested by Patient: No Hx Alcohol Use: No Hx Substance Use: No Preferred Language: German Communication Ability: Effective Visual Impairment: No Limitations Community Theater Actor Required: No Beliefs That Will Affect Care: None marital status: / Current Living Situation: Alone Current Living Situation Comment: APARTMENT Other Information That Helps Us Care for You: No Feels Safe at Home: Yes Safety Concerns: Feels Safe At This Time Assistive Devices: Oxygen - Continuous Review of Systems A total of 10 systems reviewed and were otherwise negative Physical Exam Vital Signs Vital Signs - 24 hr 01/04/21 14:10 01/04/21 14:23 01/04/21 15:58 Temperature Source Temporal Artery Scan Pulse Rate 122 H 109 H Pulse Rate [Left Apical] 120 H Pulse Rate from SpO2 Sensor 108 H Pulse Rhythm [Left Apical] Regular Pulse Strength [Left Apical] Normal Respiratory Rate 20 19 17 Respiratory Effort / Characteristics Spontaneous Short of Breath Non-Labored Spontaneous Respiratory Depth Normal Respiratory Pattern Regular Regular Blood Pressure 109/62 130/96 Blood Pressure Mean 77 107 Blood Pressure Position Sitting Blood Pressure Position [Right Arm] Lying Pulse Oximetry 90 94 Oxygen Delivery Method Nasal Cannula Room Air Oxygen Flow Rate 2 Sepsis Recent Fever Within 48 Hours No Sepsis New/Unexplained Change in Mental Status N/A Sepsis Action Taken by Nursing No Action Required 01/04/21 16:01 01/04/21 16:03 01/04/21 16:06 Temperature Source Pulse Rate 105 H 108 H 107 H Pulse Rate [Left Apical] Pulse Rate from SpO2 Sensor 107 H 109 H Pulse Rhythm [Left Apical] Pulse Strength [Left Apical] Respiratory Rate 18 21 17 Respiratory Effort / Characteristics Respiratory Depth Respiratory Pattern Blood Pressure 108/71 121/66 115/89 Blood Pressure Mean 83 84 97 Blood Pressure Position Blood Pressure Position [Right Arm] Pulse Oximetry 92 94 Oxygen Delivery Method Oxygen Flow Rate Sepsis Recent Fever Within 48 Hours Sepsis New/Unexplained Change in Mental Status Sepsis Action Taken by Nursing 01/04/21 16:07 01/04/21 16:11 01/04/21 16:16 Temperature Source Pulse Rate 106 H 103 H 95 H Pulse Rate [Left Apical] Pulse Rate from SpO2 Sensor 104 H 98 H Pulse Rhythm [Left Apical] Pulse Strength [Left Apical] Respiratory Rate 20 15 Respiratory Effort / Characteristics Respiratory Depth Respiratory Pattern Blood Pressure 115/59 L 111/75 Blood Pressure Mean 61 87 Blood Pressure Position Blood Pressure Position [Right Arm] Pulse Oximetry 92 94 Oxygen Delivery Method Oxygen Flow Rate Sepsis Recent Fever Within 48 Hours Sepsis New/Unexplained Change in Mental Status Sepsis Action Taken by Nursing 01/04/21 16:20 01/04/21 16:25 01/04/21 16:30 Temperature Source Pulse Rate 102 H 103 H 98 H Pulse Rate [Left Apical] Pulse Rate from SpO2 Sensor 101 H 103 H 98 H Pulse Rhythm [Left Apical] Pulse Strength [Left Apical] Respiratory Rate 14 17 16 Respiratory Effort / Characteristics Respiratory Depth Respiratory Pattern Blood Pressure 123/73 104/80 100/75 Blood Pressure Mean 89 88 83 Blood Pressure Position Blood Pressure Position [Right Arm] Pulse Oximetry 95 95 95 Oxygen Delivery Method Oxygen Flow Rate Sepsis Recent Fever Within 48 Hours Sepsis New/Unexplained Change in Mental Status Sepsis Action Taken by Nursing 01/04/21 16:35 01/04/21 16:40 01/04/21 16:45 Temperature Source Pulse Rate 96 H 103 H 98 H Pulse Rate [Left Apical] Pulse Rate from SpO2 Sensor 102 H 106 H 101 H Pulse Rhythm [Left Apical] Pulse Strength [Left Apical] Respiratory Rate 15 12 17 Respiratory Effort / Characteristics Respiratory Depth Respiratory Pattern Blood Pressure 121/65 108/71 128/74 Blood Pressure Mean 83 83 92 Blood Pressure Position Blood Pressure Position [Right Arm] Pulse Oximetry 96 100 100 Oxygen Delivery Method Oxygen Flow Rate Sepsis Recent Fever Within 48 Hours Sepsis New/Unexplained Change in Mental Status Sepsis Action Taken by Nursing 01/04/21 16:48 Temperature Source Pulse Rate Pulse Rate [Left Apical] Pulse Rate from SpO2 Sensor Pulse Rhythm [Left Apical] Pulse Strength [Left Apical] Respiratory Rate Respiratory Effort / Characteristics Respiratory Depth Respiratory Pattern Blood Pressure Blood Pressure Mean Blood Pressure Position Blood Pressure Position [Right Arm] Pulse Oximetry Oxygen Delivery Method Nasal Cannula Oxygen Flow Rate 3 Sepsis Recent Fever Within 48 Hours Sepsis New/Unexplained Change in Mental Status Sepsis Action Taken by Nursing VITAL SIGNS - Vital signs and nursing notes were reviewed. Tachycardic, otherwise stable and afebrile. GENERAL -65-year-old female appearing her stated age who is in no acute distress. Nasal cannula in place on 2 L which is baseline. Communicates well with provider and answers questions appropriately. SKIN - Without rashes. HEAD - NC/AT. EYES - PERRL with EOMI bilaterally. Sclera anicteric. EARS - No deformities of external structures noted on gross examination bilaterally. NOSE - Midline and without cyanosis. No epistaxis or purulent drainage noted. MOUTH/OROPHARYNX - Without perioral cyanosis. NECK - Neck with FROM. No nuchal rigidity. LUNGS - Chest wall symmetric without accessory muscle use, intercostals retractions, or central cyanosis. Normal vesicular breath sounds CTA B/L. No wheezes, rales, or rhonchi appreciated. CARDIAC -tachycardic at a regular rate ABDOMEN - Abdominal contour normal without pulsations or visible masses. BS normoactive all four quadrants. Mild generalized abdominal tenderness to palpation. No palpable masses, hepatosplenomegaly, or ascites noted. EXTREMITIES - No clubbing or peripheral cyanosis. No pretibial edema present. +5/5 strength noted in UE/LE bilaterally. NEUROLOGIC - Cranial nerves II through XII grossly intact. PSYCH - A&Ox3 and cooperates fully with examiner. Pt is very pleasant and interacts well with examiner. Course Administered Medications Albuterol (Albut/Ipratrop 3mg/0.5mg Neb 3 Ml Vial) 3 ml NEB QIDR JORGE Stop: 02/03/21 18:59 Last Admin: 01/04/21 20:05 Dose: 3 ml Documented by: [id number] Amitriptyline HCl (Amitriptyline Hcl 50 Mg Tab) 50 mg PO HS [facility] Stop: 02/03/21 20:59 Last Admin: 01/04/21 21:19 Dose: 50 mg Documented by: [id number] Apixaban (Apixaban 5 Mg Tablet) 5 mg PO BID JORGE Stop: 02/03/21 20:59 Last Admin: 01/04/21 21:21 Dose: 5 mg Documented by: [id number] Atorvastatin Calcium (Atorvastatin 40 Mg Tab) 40 mg PO HS JORGE Stop: 02/03/21 20:59 Last Admin: 01/04/21 21:22 Dose: 40 mg Documented by: [id number] Cetirizine HCl (Cetirizine Hcl 10 Mg Tablet) 10 mg PO HS [facility] Stop: 02/03/21 20:59 Last Admin: 01/04/21 21:25 Dose: 10 mg Documented by: [id number] Diltiazem HCl (Diltiazem Hcl 240 Mg Capcr) 240 mg PO BID JORGE Stop: 02/03/21 20:59 Last Admin: 01/04/21 21:25 Dose: 240 mg Documented by: [id number] Fentanyl (Fentanyl 50 Mcg/Hr Tdsy) 50 mcg TD Q3D@2000 [facility] Stop: 01/18/21 19:59 Last Admin: 01/04/21 21:37 Dose: 50 mcg Documented by: [id number] Furosemide (Furosemide 40 Mg/4 Ml Vial) 40 mg IV BID JORGE Stop: 02/03/21 18:14 Last Admin: 01/04/21 21:18 Dose: 40 mg Documented by: [id number] Gabapentin (Gabapentin 800 Mg Tab) 800 mg PO BID JORGE Stop: 02/03/21 20:59 Last Admin: 01/04/21 21:26 Dose: 800 mg Documented by: [id number] Insulin Aspart (Insulin Aspart 100 Units/Ml 3 Ml Pen) 0 units SC ACHS JORGE Stop: 02/03/21 20:59 Last Admin: 01/04/21 21:31 Dose: Not Given Documented by: [id number] Insulin Glargine (Insulin Glargine Solostar 100 Units/Ml 3 Ml Pen) 10 units SC BID JORGE Stop: 02/03/21 20:59 Last Admin: 04/22/21 21:32 Dose: 10 units Documented by: [id number] Cosigned by: [id number] Methocarbamol (Methocarbamol 750 Mg Tablet) 750 mg PO TID [facility] Stop: 02/03/21 20:59 Last Admin: 01/04/21 21:26 Dose: 750 mg Documented by: [id number] Metoprolol Succinate (Metoprolol Succ 50mg Ext Rel Tab) 100 mg PO BID [facility] Stop: 02/03/21 20:59 Last Admin: 01/04/21 21:27 Dose: 100 mg Documented by: [id number] Miscellaneous (Fentanyl Patch Remove & Waste) 1 ea N/A Q3D@1959 [facility] Stop: 02/03/21 19:58 Last Admin: 01/04/21 21:29 Dose: 1 ea Documented by: [id number] Cosigned by: [id number] Nicotine (Nicotine 21 Mg/24 Hr Tdsy) 21 mg TD QAM [facility] Stop: 02/03/21 18:29 Last Admin: 01/04/21 22:43 Dose: Not Given Documented by: [id number] Trazodone HCl (Trazodone Hcl 100 Mg Tab) 200 mg PO HS [facility] Stop: 02/03/21 20:59 Last Admin: 01/04/21 21:28 Dose: 200 mg Documented by: [id number] Discontinued Medications Magnesium Sulfate/Dextrose (Magnesium Sulfate / D5w) 1 gm in 100 mls @ 50 mls/hr IV ONE ONE Stop: 01/04/21 20:29 Last Infusion: 01/04/21 23:26 Dose: 0 mls/hr Documented by: [id number] Admin: 01/04/21 21:19 Dose: 50 mls/hr Documented by: [id number] Metoprolol Tartrate (Metoprolol Tartrate 1 Mg/Ml Vial) 5 mg IV Q5M PRN PRN Reason: Tachycardia Stop: 02/03/21 15:24 Last Admin: 01/04/21 16:07 Dose: 5 mg Documented by: [id number] Admin: 01/04/21 15:58 Dose: 5 mg Documented by: [id number] Medical Decision Making Laboratory Data Result diagrams: 01/04/21 15:04 01/04/21 15:04 Lab Results 01/04/21 01/04/21 01/04/21 Range/Units 14:48 14:48 15:04 WBC (4.8-10.8) K/uL RBC (4.2-5.4) M/uL Hgb (12.0-16.0) g/dL Hct (37-47) % MCV (80-100) fL MCH (25-34) pg MCHC (32-36) g/dL RDW Std Deviation (36.4-46.3) fL RDW Coeff of King (11.5-14.5) % Plt Count (130-400) K/uL MPV (7.4-10.4) fL Immature Gran % (Auto) % Neut % (Auto) % Lymph % (Auto) % [place] % (Auto) % Eos % (Auto) % Baso % (Auto) % Neut # (Auto) (1.4-6.5) K/uL Lymph # (Auto) (1.2-3.4) K/uL [place] # (Auto) (0.11-0.59) K/uL Eos # (Auto) (0-0.5) K/uL Baso # (Auto) (0-0.2) K/uL Immature Gran # (Auto) (0.00-0.02) K/uL PT (9.0-12.0) Seconds INR (0.9-1.1) APTT (21.0-31.0) Seconds PTT Ratio Sodium (136-145) mmol/L Potassium (3.5-5.1) mmol/L Chloride (98-107) mmol/L Carbon Dioxide (21-32) mmol/L Anion Gap (3-11) BUN (7-18) mg/dl Creatinine (0.6-1.2) mg/dl Est Cr Clr Drug Dosing ml/min Est GFR ( Amer) Est GFR (Non-Af Amer) BUN/Creatinine Ratio (10-20) Glucose (70-99) mg/dl Lactate (0.4-2.0) mmol/L Calcium (8.5-10.1) mg/dl Magnesium (1.8-2.4) mg/dl Total Bilirubin (0.2-1) mg/dl AST (15-37) U/L ALT (12-78) U/L Alkaline Phosphatase (45-117) U/L Troponin I (0-0.045) ng/ml NT-Pro-B Natriuret Pep (0-900) pg/ml Total Protein (6.4-8.2) gm/dl Albumin (3.4-5.0) gm/dl Globulin (2.5-4.0) gm/dl Albumin/Globulin Ratio (0.9-2) Lipase (73-393) U/L Procalcitonin < 0.05 (0-0.5) ng/ml TSH (0.300-4.500) uIu/ml Urine Color Urine Appearance (Clear) Urine pH (4.5-7.5) Ur Specific [place] (1.000-1.030) Urine Protein (Negative) Urine Glucose (UA) (Negative) Urine Ketones (Negative) Urine Blood (Negative) Urine Nitrite (Negative) Urine Bilirubin (Negative) Urine Urobilinogen (Negative) Ur Leukocyte Esterase (Negative) Urine WBC (Auto) (0-5) /hpf Urine RBC (Auto) (0-4) /hpf U Hyaline Cast (Auto) (0-5) /lpf U Epithel Cells (Auto) (0-5) /lpf Urine Bacteria (Auto) (Negative) Digoxin (0.8-2.0) ng/ml COVID-19 Eval Order CovFluRsv at [facility] SARS-CoV-2 (PCR) POSITIVE A* (Negative) Influenza Type A (PCR) Negative (Neg) Influenza Type B (PCR) Negative (Neg) RSV (RT-PCR) Negative (Neg) 01/04/21 01/04/21 01/04/21 Range/Units 15:04 15:04 15:04 WBC 6.69 (4.8-10.8) K/uL RBC 4.21 (4.2-5.4) M/uL Hgb 12.6 (12.0-16.0) g/dL Hct 37.6 (37-47) % MCV 89.3 (80-100) fL MCH 29.9 (25-34) pg MCHC 33.5 (32-36) g/dL RDW Std Deviation 50.7 H (36.4-46.3) fL RDW Coeff of King 15.6 H (11.5-14.5) % Plt Count 334 (130-400) K/uL MPV 9.5 (7.4-10.4) fL Immature Gran % (Auto) 0.3 % Neut % (Auto) 81.8 % Lymph % (Auto) 9.3 % [place] % (Auto) 8.5 % Eos % (Auto) 0.0 % Baso % (Auto) 0.1 % Neut # (Auto) 5.47 (1.4-6.5) K/uL Lymph # (Auto) 0.62 L (1.2-3.4) K/uL [place] # (Auto) 0.57 (0.11-0.59) K/uL Eos # (Auto) 0.00 (0-0.5) K/uL Baso # (Auto) 0.01 (0-0.2) K/uL Immature Gran # (Auto) 0.02 (0.00-0.02) K/uL PT 11.7 (9.0-12.0) Seconds INR 1.2 H (0.9-1.1) APTT 30.5 (21.0-31.0) Seconds PTT Ratio 1.2 Sodium (136-145) mmol/L Potassium (3.5-5.1) mmol/L Chloride (98-107) mmol/L Carbon Dioxide (21-32) mmol/L Anion Gap (3-11) BUN (7-18) mg/dl Creatinine (0.6-1.2) mg/dl Est Cr Clr Drug Dosing ml/min Est GFR ( Amer) Est GFR (Non-Af Amer) BUN/Creatinine Ratio (10-20) Glucose (70-99) mg/dl Lactate 1.0 (0.4-2.0) mmol/L Calcium (8.5-10.1) mg/dl Magnesium (1.8-2.4) mg/dl Total Bilirubin (0.2-1) mg/dl AST (15-37) U/L ALT (12-78) U/L Alkaline Phosphatase (45-117) U/L Troponin I (0-0.045) ng/ml NT-Pro-B Natriuret Pep (0-900) pg/ml Total Protein (6.4-8.2) gm/dl Albumin (3.4-5.0) gm/dl Globulin (2.5-4.0) gm/dl Albumin/Globulin Ratio (0.9-2) Lipase (73-393) U/L Procalcitonin (0-0.5) ng/ml TSH (0.300-4.500) uIu/ml Urine Color Urine Appearance (Clear) Urine pH (4.5-7.5) Ur Specific [place] (1.000-1.030) Urine Protein (Negative) Urine Glucose (UA) (Negative) Urine Ketones (Negative) Urine Blood (Negative) Urine Nitrite (Negative) Urine Bilirubin (Negative) Urine Urobilinogen (Negative) Ur Leukocyte Esterase (Negative) Urine WBC (Auto) (0-5) /hpf Urine RBC (Auto) (0-4) /hpf U Hyaline Cast (Auto) (0-5) /lpf U Epithel Cells (Auto) (0-5) /lpf Urine Bacteria (Auto) (Negative) Digoxin (0.8-2.0) ng/ml COVID-19 Eval Order SARS-CoV-2 (PCR) (Negative) Influenza Type A (PCR) (Neg) Influenza Type B (PCR) (Neg) RSV (RT-PCR) (Neg) 01/04/21 01/04/21 01/04/21 Range/Units 15:04 15:30 17:36 WBC (4.8-10.8) K/uL RBC (4.2-5.4) M/uL Hgb (12.0-16.0) g/dL Hct (37-47) % MCV (80-100) fL MCH (25-34) pg MCHC (32-36) g/dL RDW Std Deviation (36.4-46.3) fL RDW Coeff of King (11.5-14.5) % Plt Count (130-400) K/uL MPV (7.4-10.4) fL Immature Gran % (Auto) % Neut % (Auto) % Lymph % (Auto) % [place] % (Auto) % Eos % (Auto) % Baso % (Auto) % Neut # (Auto) (1.4-6.5) K/uL Lymph # (Auto) (1.2-3.4) K/uL [place] # (Auto) (0.11-0.59) K/uL Eos # (Auto) (0-0.5) K/uL Baso # (Auto) (0-0.2) K/uL Immature Gran # (Auto) (0.00-0.02) K/uL PT (9.0-12.0) Seconds INR (0.9-1.1) APTT (21.0-31.0) Seconds PTT Ratio Sodium 135 L (136-145) mmol/L Potassium 3.8 (3.5-5.1) mmol/L Chloride 99 (98-107) mmol/L Carbon Dioxide 32 (21-32) mmol/L Anion Gap 4.0 (3-11) BUN 18 (7-18) mg/dl Creatinine 1.51 H (0.6-1.2) mg/dl Est Cr Clr Drug Dosing 40.5 ml/min Est GFR ( Amer) 41.9 Est GFR (Non-Af Amer) 36.1 BUN/Creatinine Ratio 11.6 (10-20) Glucose 108 H (70-99) mg/dl Lactate (0.4-2.0) mmol/L Calcium 9.1 (8.5-10.1) mg/dl Magnesium 1.7 L (1.8-2.4) mg/dl Total Bilirubin 0.5 (0.2-1) mg/dl AST 34 (15-37) U/L ALT 29 (12-78) U/L Alkaline Phosphatase 92 (45-117) U/L Troponin I < 0.015 (0-0.045) ng/ml NT-Pro-B Natriuret Pep 4491 H (0-900) pg/ml Total Protein 6.8 (6.4-8.2) gm/dl Albumin 2.2 L (3.4-5.0) gm/dl Globulin 4.6 H (2.5-4.0) gm/dl Albumin/Globulin Ratio 0.5 L (0.9-2) Lipase 49 L (73-393) U/L Procalcitonin (0-0.5) ng/ml TSH 0.928 (0.300-4.500) uIu/ml Urine Color Yellow Urine Appearance Clear (Clear) Urine pH 6.5 (4.5-7.5) Ur Specific [place] 1.008 (1.000-1.030) Urine Protein 1+ H (Negative) Urine Glucose (UA) Negative (Negative) Urine Ketones Negative (Negative) Urine Blood Trace H (Negative) Urine Nitrite Negative (Negative) Urine Bilirubin Negative (Negative) Urine Urobilinogen Negative (Negative) Ur Leukocyte Esterase Negative (Negative) Urine WBC (Auto) 0 (0-5) /hpf Urine RBC (Auto) 0-4 (0-4) /hpf U Hyaline Cast (Auto) 1-5 (0-5) /lpf U Epithel Cells (Auto) 10-20 H (0-5) /lpf Urine Bacteria (Auto) Negative (Negative) Digoxin 0.4 L (0.8-2.0) ng/ml COVID-19 Eval Order SARS-CoV-2 (PCR) (Negative) Influenza Type A (PCR) (Neg) Influenza Type B (PCR) (Neg) RSV (RT-PCR) (Neg) Imaging Data Radiologist's Impression: Chest X-Ray 01/04/21 14:27 XR chest 1V portable CLINICAL HISTORY: dyspnea COMPARISON STUDY: 11/10/2020 FINDINGS: The heart is enlarged. Valvular prosthesis is again visualized. There is a progressive pulmonary edema pattern. There is a suspected small left pleural effusion. There are left basilar airspace opacities, focal edema versus pneumonia versus atelectasis.[There is a nodular opacity within the right midlung zone, likely representing a summation with interfissural fluid IMPRESSION: 1. Worsening pulmonary edema pattern 2. Suspected small left pleural effusion with associated left basilar airspace opacities ACT 112: Negative or not required by law. Electronically signed by: Cesar Lopez M.D. 01/04/2021 4:06 PM MDM Narrative Patient was seen and evaluated as above in room B10. Review was performed of nursing notes and vital signs. I did review pertinent previous visits and patient history. After obtaining a thorough history and physical examination the above work up was performed. Patient has a complex and extensive past medical history. She presents to us today with dyspnea and tachycardia. Patient is currently anticoagulated on Eliquis which is somewhat new for her as she was previously on warfarin. The patient appears well on exam but is tachycardic. Options of care were discussed with the patient. IV access established. Labs were drawn. Chest x-ray shows a worsening pulmonary edema pattern. Laboratory studies reveal no leukocytosis or anemia. No emergent metabolic disturbance. BNP is elevated compared to baseline at 4491. Troponin within normal limits. Urinalysis does not suggest infection. Covid testing positive however will note she has had Covid in the recent past. Digoxin level low. Patient responded well here to IV Lopressor. Given the patient's tachycardia above baseline in the setting of worsening dyspnea I do believe that further evaluation and management inpatient setting would be warranted. Patient amenable to plan. Case discussed with attending physician as well as the hospitalist. Please refer to further documentation regarding her stay. Patient EKG here reveals what is likely atrial flutter compared to previous EKGs. This is at a rate of 120 bpm. QTc 528. QRS 146. This was compared to several previous EKGs, most recently November 10 of this year. I do not suspect CO. An order was placed for continuous cardiac monitoring. The monitor shows a rate of 108. I attest that I have personally reviewed the patient medication list. GCS: 15 In the evaluation and treatment of this patient the following differential diagnoses were entertained: CO, PE, pericarditis, costochondritis, CHF, COVID- 19, medication noncompliance, among others. Impression & Plan Dyspnea, Tachycardia Discharge Plan Visit Data Chief Complaint: Shortness of Breath/Dyspnea Stated Complaint: TACHYCARDIA,SOB ED Provider: Nannette Woody ED Midlevel Provider: Rufino Pascual Discharge Problem: Dyspnea, Tachycardia Patient Disposition: Admitted As Inpatient Condition: Good Discharge Instructions Interventions: ED Discharge Assessment Last Done: 01/04/21 19:20
[2021-01-04 15:19] LABS: Basophils # (auto) 0.01 K/uL (0-0.2); Basophils % (auto) 0.1 %; Hematocrit (blood only) 37.6 % (37-47); Hemoglobin 12.6 g/dL (12.0-16.0); Immature Granulocytes # (auto) 0.02 K/uL (0.00-0.02); Immature Granulocytes % (auto) 0.3 %; Lymphocytes # (auto) 0.62 K/uL (1.2-3.4); Lymphocytes % (auto) 9.3 %; Mean Corpuscular Hemoglobin 29.9 pg (25-34); Mean Corpuscular Hgb Conc 33.5 g/dL (32-36); Mean Corpuscular Volume 89.3 fL (80-100); Mean Platelet Volume 9.5 fL (7.4-10.4); Monocytes # (auto) 0.57 K/uL (0.11-0.59); Monocytes % (auto) 8.5 %; Neutrophils # (auto) 5.47 K/uL (1.4-6.5); Neutrophils % (auto) 81.8 %; Platelet Count 334 K/uL (130-400); RDW Coefficient of Variation 15.6 % (11.5-14.5); RDW Standard Deviation 50.7 fL (36.4-46.3); Red Blood Count 4.21 M/uL (4.2-5.4); White Blood Count 6.69 K/uL (4.8-10.8)
[2021-01-04 15:35] LABS: Albumin Level 2.2 gm/dl (3.4-5.0); Aspartate Aminotransferase 34 U/L (15-37); BUN Creatinine Ratio 11.6 (10-20); Blood Urea Nitrogen 18 mg/dl (7-18); Calcium 9.1 mg/dl (8.5-10.1); Carbon Dioxide 32 mmol/L (21-32); Chloride 99 mmol/L (98-107); Creatinine Clr Calc Pharmacy 40.5 ml/min; Est GFR (African American) 41.9; Est GFR (Non-African American) 36.1; Glucose 108 mg/dl (70-99); Lipase 49 U/L (73-393); Magnesium 1.7 mg/dl (1.8-2.4); Potassium 3.8 mmol/L (3.5-5.1); Sodium 135 mmol/L (136-145)
[2021-01-04 15:40] LABS: INR 1.2 (0.9-1.1); Partial Thromboplastin Ratio 1.2; Partial Thromboplastin Time 30.5 Seconds (21.0-31.0); Prothrombin Time 11.7 Seconds (9.0-12.0)
[2021-01-04 15:46] LABS: Alanine Aminotransferase 29 U/L (12-78); Albumin Globulin Ratio 0.5 (0.9-2); Alkaline Phosphatase 92 U/L (45-117); Bilirubin,Total 0.5 mg/dl (0.2-1); Globulin 4.6 gm/dl (2.5-4.0); NT Pro B Type Natriuretic Pept 4491 pg/ml (0-900); Thyroid Stimulating Hormone 0.928 uIu/ml (0.300-4.500); Total Protein 6.8 gm/dl (6.4-8.2); Troponin I < 0.015 ng/ml (0-0.045)
[2021-01-04 15:48] LABS: Influenza A virus by PCR Negative (Neg); Influenza B virus by PCR Negative (Neg); RSV by PCR Negative (Neg)
[2021-01-04 15:49] LABS: Appearance Urine Clear (Clear); Bacteria Urine Automated Negative (Negative); Bilirubin Urine Negative (Negative); Blood Urine Trace (Negative); Color Urine Yellow; Glucose Urine UA Negative (Negative); Ketones Urine Negative (Negative); Leukocyte Esterase Urine Negative (Negative); Nitrite Urine Negative (Negative); Protein Urine 1+ (Negative); RBC Urine Automated 0-4 /hpf (0-4); Specific Gravity Urine 1.008 (1.000-1.030); Urobilinogen Urine Negative (Negative); WBC Urine Automated 0 /hpf (0-5); pH Urine 6.5 (4.5-7.5)
[2021-01-04] MEDS: METOPROLOL TARTRATE 1 MG/ML VIAL IV PRN ×2 (15:58→16:07)
[2021-01-04 16:05] LABS: SARS CoV2 RNA(COVID-19) InHosp POSITIVE (Negative)
--- NOTE | 2021-01-04 16:07 | XRay Report ---
XR chest 1V portable CLINICAL HISTORY: dyspnea COMPARISON STUDY: 11/10/2020 FINDINGS: The heart is enlarged. Valvular prosthesis is again visualized. There is a progressive pulm onary edema pattern. There is a suspected small left pleural effusion. There are left basilar airspac e opacities, focal edema versus pneumonia versus atelectasis.[There is a nodular opacity within the r ight midlung zone, likely representing a summation with interfissural fluid IMPRESSION: 1. Worsening pulmonary edema pattern 2. Suspected small left pleural effusion with associated left basilar airspace opacities ACT 112: Negative or not required by law. Electronically signed by: Cesar Lopez M.D. 01/04/2021 4:06 PM
[2021-01-04] MEDS ORDERED: MAGNESIUM SULFATE / D5W 1 GM/100 ML BAG IV ONE (18:30)
[2021-01-04] MEDS ORDERED: GLUCOSE 40% GEL 15 GM TUBE PO PRN (19:48)
[2021-01-04] MEDS ORDERED: CARBOHYDRATES FOR HYPOGLYCEMIA PO PRN (19:48)
[2021-01-04] MEDS ORDERED: GLUCOSE 10 TABS/TUBE PO PRN (19:48)
[2021-01-04] MEDS ORDERED: ACETAMINOPHEN 325 MG TAB PO PRN (19:48)
[2021-01-04] MEDS ORDERED: DEXTROSE 50% 50 ML SYRINGE IV PRN (19:48)
[2021-01-04] MEDS ORDERED: GLUCAGON FOR INJ 1 MG VIAL SQ PRN (19:48)
[2021-01-04] MEDS: ALBUT/IPRATROP 3MG/0.5MG NEB 3 ML VIAL NEB SCH (20:05)
[2021-01-04] MEDS: FUROSEMIDE 40 MG/4 ML VIAL IV SCH (21:18)
[2021-01-04] MEDS: AMITRIPTYLINE HCL 50 MG TAB PO SCH (21:19)
[2021-01-04] MEDS: APIXABAN 5 MG TABLET PO SCH (21:21)
[2021-01-04] MEDS: ATORVASTATIN 40 MG TAB PO SCH (21:22)
[2021-01-04] MEDS: CETIRIZINE HCL 10 MG TABLET PO SCH (21:25)
[2021-01-04] MEDS: dilTIAZem HCL 240 MG CAPCR PO SCH (21:25)
[2021-01-04] MEDS: GABAPENTIN 800 MG TAB PO SCH (21:26)
[2021-01-04] MEDS: METHOCARBAMOL 750 MG TABLET PO SCH (21:26)
--- NOTE | 2021-01-04 21:26 | Emergency Department Note ---
ED Visit Note I have personally seen and evaluated the patient with the PA. I agree with the diagnosis and management decisions and have been personally involved in the case. Please see Rufino Pascual PA-C's notes for further details of the history, physical and visit. .
[2021-01-04] MEDS: METOPROLOL SUCC 50MG EXT REL TAB PO SCH (21:27)
[2021-01-04] MEDS: traZODone HCL 100 MG TAB PO SCH (21:28)
[2021-01-04] MEDS: INSULIN ASPART 100 UNITS/ML 3 ML PEN SC SCH (21:31)
[2021-01-04] MEDS: INSULIN GLARGINE SOLOSTAR 100 UNITS/ML 3 ML PEN SC SCH (21:32)
--- NOTE | 2021-01-04 21:34 | History & Physical Report ---
Date of Service January 04, 2021 Assessment & Plan (1) Atrial flutter with rapid ventricular response: -Admit to telemetry -Patient presenting by referral of PCP for evaluation of atrial flutter with RVR -Please refer to HPI for recent hospital admission details and medication titrations -Patient recently self down titrated diltiazem due to concerns of diarrhea -down titration likely causing rapid rate -Cardioversion was deferred during recent admission after HUSSEIN demonstrated evidence of left apical thrombus -Patient agreeable to resume diltiazem 240 mg twice daily, will monitor for side effects. Continue digoxin and metoprolol -Anticoagulated on Eliquis, will continue -Cardiology consult, input appreciated (2) Acute on chronic diastolic CHF (congestive heart failure): -BNP 4000, CXR suggestive of pulmonary edema -Saturating well on chronic 2 L of oxygen -Start Lasix 40 mg IV twice daily -Strict I's and O's, Sinclair, daily weights -HUSSEIN 11/16/2020 -EF 55 to 60% (3) Chronic obstructive pulmonary disease: (4) Chronic respiratory failure with hypoxia, on home oxygen therapy: -Wheezing noted on exam, likely secondary to volume overload -No change in sputum production or other infectious signs noted, hold on antibiotics for now -Nebs, diuresis as above (5) Lab test positive for detection of COVID-19 virus: -Initially tested + 10/11/2020 -Continues to test positive today, do not suspect active infection (6) DM type 2 (diabetes mellitus, type 2): -Hgb A1c 8.3 10/2020 -Lantus and NovoLog (7) Chronic pain: -Continue home fentanyl patch and as needed oxycodone (8) CKD (chronic kidney disease), stage III: -Creatinine 1.5, at baseline -Monitor renal functions (9) Bipolar disorder: -Stable, continue home medications (10) DVT prophylaxis: -On Eliquis Admission and Anticipated Discharge Date Admission Date: January 04, 2021 History of Present Illness Chief Complaint: Shortness of breath Primary Care Provider: Manoj Goins, 65-year-old female with PMH DM type II, COPD with chronic hypoxic respiratory failure on home O2, chronic diastolic CHF, atrial fibrillation/atrial flutter anticoagulated on Eliquis, chronic pain, CKD stage III, history of mitral valve repair, and other problems listed below who was sent to the ED by PCP for evaluation of shortness of breath and atrial flutter with RVR. Patient recently admitted to [facility] 11/09 through 11/18 for atrial flutter with RVR and acute on chronic diastolic CHF. During that admission, patient underwent HUSSEIN that showed a possible left atrial thrombus therefore cardioversion was deferred. Patient's Coumadin was changed to Eliquis. Cardizem was increased to 240 mg daily. Patient was seen in the cardiology clinic on 11/30 and Cardizem was uptitrated further to 240 mg twice daily. She was again evaluated on 12/08 and digoxin 3 times per week was added. Patient reports worsening shortness of breath of the past several weeks. She was also having some diarrhea and felt that the symptoms were due to diltiazem. She then self down titrated her diltiazem to 240 mg daily. Patient was seen by PCP today and found to be in atrial flutter w ith RVR. She was then sent to the ED for further evaluation. Patient denies chest pain. Reports some occasional episodes of palpitations. No lightheadedness, dizziness, diaphoresis, syncopal events. She denies abdominal pain, nausea, vomiting. No fevers or chills. Denies cough and sputum production. Reports she chronically sleeps at a 45 degree angle. No worsening lower extremity edema. She denies urinary symptoms. In the ED, EKG shows atrial flutter with rate 120. Labs show BNP 4000, otherwise unremarkable/at patient's baseline. CXR suggestive of pulmonary edema. Patient is saturating well on her chronic 2 L of oxygen. Patient was given metoprolol 5 mg IV with improvement in heart rate. Allergies Allergy/AdvReac Type Severity Reaction Status Date / Time bee venom protein (honey bee) Allergy Severe SWELLING Verified 01/04/21 16:00 lisinopril Allergy Severe ANGIOEDEMA, Verified 01/04/21 16:00 FACIAL CELLULITIS, RASH strawberry Allergy Severe LIPS, Verified 01/04/21 16:00 TONGUE, FACE SWELLS alprazolam Allergy Intermediate RED FACE, Verified 01/04/21 16:00 FACE SWELLING potato Allergy Intermediate BBQ chips Verified 01/04/21 16:00 - facial swelling alendronate sodium Allergy Unknown ON [facility] MED Verified 01/04/21 16:00 LIST colesevelam AdvReac Intermediate Abdominal Verified 01/04/21 16:00 Pain lactose AdvReac Intermediate VOMTING Verified 01/04/21 16:00 DIARRHEA ABDOMINAL PAIN-LACTOSE INTOLERANCE lithium AdvReac Intermediate jitters Verified 01/04/21 16:00 metronidazole AdvReac Intermediate ABD PAIN, Verified 01/04/21 16:00 WEAKNESS, NAUSEA, VOMITING prednisone AdvReac Mild AGGRESSIVE Verified 01/04/21 16:00 BEHAVIOR Home Medications Medication Instructions Recorded Confirmed Type Spiriva with HandiHaler 1 cap INHALATION QAM 06/19/18 01/04/21 History atorvastatin 40 mg PO HS 06/19/18 01/04/21 History cetirizine 10 mg PO HS 06/19/18 01/04/21 History cholecalciferol (vitamin D3) 1,000 unit PO QAM 06/19/18 01/04/21 History [Vitamin D3] docusate sodium 100 mg PO BID 06/19/18 01/04/21 History epinephrine [EpiPen] 0.3 mg IM DIRECTED PRN 06/19/18 01/04/21 History fentanyl 50 mcg TRANSDERMAL [id number] 06/19/18 01/04/21 History methocarbamol 750 mg PO TID 06/19/18 01/04/21 History multivitamin 1 tab PO QAM 06/19/18 01/04/21 History ondansetron 8 mg PO BID PRN 06/19/18 01/04/21 History venlafaxine 150 mg PO QAM 06/19/18 01/04/21 History trazodone 200 mg PO HS 09/14/18 01/04/21 History venlafaxine 75 mg PO QAM 09/14/18 01/04/21 History zolpidem 5 mg PO HS 09/14/18 01/04/21 History gabapentin 800 mg PO BID 05/28/19 01/04/21 History Lantus U-100 Insulin 18 unit SUBCUT BID 03/02/20 01/04/21 History potassium chloride 40 meq PO DAILY 03/02/20 01/04/21 History levalbuterol HCl 1.25 mg INHALATION Q4H PRN 03/24/20 01/04/21 History nitroglycerin [Nitrostat] 0.4 mg SUBLINGUAL DIRECTED PRN 07/02/20 01/04/21 History oxycodone 10 mg PO Q6H PRN 07/02/20 01/04/21 History fluticasone propion-salmeterol 1 inh INHALATION BID 08/01/20 01/04/21 History [Advair Diskus] calcitriol 0.25 mcg PO 3XWK 10/21/20 01/04/21 History Gaviscon 1 tab PO TID PRN 11/08/20 01/04/21 History acetaminophen 500 mg PO Q6H PRN 11/08/20 01/04/21 History amitriptyline 50 mg PO HS 11/08/20 01/04/21 History benzonatate 100 mg PO TID PRN 11/08/20 01/04/21 History furosemide 80 mg PO BID 11/08/20 01/04/21 History melatonin 10 mg PO HS 11/08/20 01/04/21 History metoprolol succinate 100 mg PO BID 11/08/20 01/04/21 History pantoprazole 40 mg PO DAILYBB 11/08/20 01/04/21 History polyethylene glycol 3350 17 g PO DAILY 11/08/20 01/04/21 History prochlorperazine maleate 10 mg PO Q6H PRN 11/08/20 01/04/21 History [Compazine] apixaban [Eliquis] 5 mg PO BID #60 tab 11/16/20 01/04/21 Rx ammonium lactate 1 applic TOPICAL DAILY 01/04/21 01/04/21 History digoxin 125 mcg PO 3XWK 01/04/21 01/04/21 History diltiazem HCl 240 mg PO BID 01/04/21 01/04/21 History imiquimod [Aldara] 1 applic TOPICAL HS 01/04/21 01/04/21 History levalbuterol tartrate [Xopenex HFA] 1 puff INHALATION Q4H PRN 01/04/21 01/04/21 History nystatin 1 applic TOPICAL TID 01/04/21 01/04/21 History Past Med/Surg History Medical History (Updated 01/04/21 @ 21:58 by KAYCE Waller) Anxiety Asthma 3LPM via n/c mostly continuous (although patient states she does not wear this all the time) Atrial fibrillation a. fib/a. flutter s/p cardioversion (2017) Atrial flutter Lynn esophagus Bipolar disorder Chronic back pain Chronic cor pulmonale Chronic hyponatremia Chronic kidney disease stage III Chronic obstructive pulmonary disease 3LPM via n/c mostly continuous (although patient states she does not wear this all the time) Chronic pain Chronic respiratory failure Chronic respiratory failure with hypoxia, on home oxygen therapy CKD (chronic kidney disease), stage III Compression fracture of T3 vertebra COVID-19 virus detected + 10/11/20 COVID-19 virus infection CVA (cerebral vascular accident) 2004 (per records; patient denies) Depression Diastolic CHF, chronic DM type 2 (diabetes mellitus, type 2) Fibromyalgia Gastroparesis GERD (gastroesophageal reflux disease) History of cardioversion History of Clostridium difficile infection History of DVT (deep vein thrombosis) left "hand" 2004- on AC HTN (hypertension) Hyperlipidemia Hypothyroidism no current medication per doctor orders. 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 Obesity Osteoarthritis Peripheral neuropathy Post traumatic stress disorder Pulmonary HTN Severe obstructive sleep apnea Surgical History History of adenoidectomy History of appendectomy LAPAROSCOPY History of cardiac cath 2004= no stents History of carpal tunnel release left History of cataract surgery BILATERAL History of cholecystectomy LAPAROSCOPY History of colonoscopy History of esophagogastroduodenoscopy (EGD) History of hysterectomy EMIGDIO WITH BSO History of mitral valve repair 2004 + resection fibroelastoma History of tonsillectomy Hx of lumpectomy right breast BENIGN Hx of tubal ligation Hx of umbilical hernia repair S/P trigger finger release RIGHT/LEFT Family History Mother Family history of diabetes mellitus Sister Family history of diabetes mellitus Ulcerative colitis Social History Smoking Status: Current every day smoker Tobacco Type: Cigarettes Cigarettes Per Day: 8; Second Hand Exposure: No; Do You Dip or Chew Tobacco: No; Tobacco Cessation Education Requested by Patient: No Hx Alcohol Use: No Hx Substance Use: No Preferred Language: Welsh Communication Ability: Effective Visual Impairment: No Limitations Concrete Bucket Loader Required: No Beliefs That Will Affect Care: None marital status: / Current Living Situation: Alone Current Living Situation Comment: APARTMENT Other Information That Helps Us Care for You: No Feels Safe at Home: Yes Safety Concerns: Feels Safe At This Time Assistive Devices: Oxygen - Continuous Review of Systems Review of Systems: ROS per HPI, all other systems reviewed and negative Physical Exam Constitutional: WD/WN, vitals as above Chronically ill-appearing Eyes: PERRL, conjunctivae normal, anicteric sclerae ENMT: external ear and nose normal, oropharynx normal Respiratory: normal respiratory effort; no respiratory distress Auscultation: + crackles (bilateral ) and + wheezes (Bilateral, expiratory) Cardiovascular: Rate/Rhythm: regular rate and regular rhythm Vessels: normal peripheral pulses Extremities: no edema Gastrointestinal (Abdomen): normal bowel sounds, soft, nontender, no hepatosplenomegaly Musculoskeletal: no cyanosis or clubbing, extremities motor strength 5/5 Skin: no rashes, warm and dry Chronic venous changes BLE Neurologic: PERRL, EOMI, accommodation nl, no face palsy, no dysarthria Psychiatric: A+Ox3, euthymic affect Results & Data Results & Data ([facility]) Vital Signs (Past 12 Hours) Vital Signs Temp Pulse Pulse Resp BP BP Pulse Ox 01/04/21 20:15 97 H 16 95 01/04/21 19:49 37.2 C 103 H 19 126/80 93 01/04/21 16:45 98 H 17 128/74 100 01/04/21 16:40 103 H 12 108/71 100 01/04/21 16:35 96 H 15 121/65 96 01/04/21 16:30 98 H 16 100/75 95 01/04/21 16:25 103 H 17 104/80 95 01/04/21 16:20 102 H 14 123/73 95 01/04/21 16:16 95 H 15 111/75 94 01/04/21 16:11 103 H 20 92 01/04/21 16:07 106 H 115/59 L 01/04/21 16:06 107 H 17 115/89 94 01/04/21 16:03 108 H 21 121/66 01/04/21 16:01 105 H 18 108/71 92 01/04/21 15:58 109 H 17 130/96 94 01/04/21 14:23 120 H 19 01/04/21 14:10 122 H 20 109/62 90 Laboratory Results Short CBC 01/04/21 Range/Units 15:04 WBC 6.69 (4.8-10.8) K/uL Hgb 12.6 (12.0-16.0) g/dL Hct 37.6 (37-47) % Plt Count 334 (130-400) K/uL BMP 01/04/21 15:04 Sodium 135 L Potassium 3.8 Chloride 99 Carbon Dioxide 32 BUN 18 Creatinine 1.51 H Glucose 108 H Calcium 9.1 Cardiac Enzymes 01/04/21 Range/Units 15:04 Troponin I < 0.015 (0-0.045) ng/ml Liver Function 01/04/21 Range/Units 15:04 Total Bilirubin 0.5 (0.2-1) mg/dl AST 34 (15-37) U/L ALT 29 (12-78) U/L Alkaline Phosphatase 92 (45-117) U/L Albumin 2.2 L (3.4-5.0) gm/dl Urine 01/04/21 Range/Units 15:30 Urine Color Yellow Urine Appearance Clear (Clear) Urine pH 6.5 (4.5-7.5) Ur Specific [place] 1.008 (1.000-1.030) Urine Protein 1+ H (Negative) Urine Glucose (UA) Negative (Negative) Diagnostic Findings Chest X-Ray 01/04/21 14:27 XR chest 1V portable CLINICAL HISTORY: dyspnea COMPARISON STUDY: 11/10/2020 FINDINGS: The heart is enlarged. Valvular prosthesis is again visualized. There is a progressive pulmonary edema pattern. There is a suspected small left pleural effusion. There are left basilar airspace opacities, focal edema versus pneumonia versus atelectasis.[There is a nodular opacity within the right midlung zone, likely representing a summation with interfissural fluid IMPRESSION: 1. Worsening pulmonary edema pattern 2. Suspected small left pleural effusion with associated left basilar airspace opacities ACT 112: Negative or not required by law. Electronically signed by: Cesar Lopez M.D. 01/04/2021 4:06 PM Code Status & VTE Plan Code Status Patient is a full code as per my discussion with her. VTE Prophylaxis Plan VTE Prophylaxis will be ordered: No Supervising Physician Co-Signing Physician Notes I have seen and examined the patient and have discussed the case with the provider above. I agree with the assessment and plan as stated. The patient is a 65-year-old female with chronic comorbidities and active smoking who presents with worsening shortness of breath likely multifactorial in etiology. The biggest factor driving her admission this evening was her elevated heart rate, after self reducing her diltiazem thinking this was contributing to diarrhea. The diarrhea has since resolved after stopping diltiazem 4 days ago, and she reports an improvement in abdominal cramping related to the diarrhea. She otherwise denies any fevers chills, chest pain, coughing, shortness of breath, productive or change sputum. She cannot move very much at baseline and has a very low exercise tolerance. Physical exam as above with an obese woman in no acute distress. No conversational dyspnea noted. She easily maneuvered herself around the bed independently. Cardiac exam with irregular rhythm and normal heart rate, S1/2 heard with no murmurs, gallops or rubs. Wheezing throughout all lung mills. No peripheral edema. Agree with plan above including continue diuretic therapy. Patient diuresed approximately 1200 cc in response to initial Lasix dose. She reports feeling better already. We will continue with scheduled bronchodilators. At this point I do not believe she is having a COPD exacerbation without increased dyspnea on exertion or productive sputum/change sputum. We will hold off on steroids at this time and continue with scheduled bronchodilators and Lasix. Heart rate this evening is down into the 80s and 90s. Appreciate cardiology recommendations for continued optimization of this complicated patient. DO Kam
[2021-01-04] MEDS: fentaNYL 50 MCG/HR TDSY TD SCH (21:37)
[2021-01-04] MEDS: NICOTINE 21 MG/24 HR TDSY TD SCH (22:43)
[2021-01-05] MEDS: ALBUT/IPRATROP 3MG/0.5MG NEB 3 ML VIAL NEB SCH ×5 (03:34→19:33)
[2021-01-05] MEDS: PANTOprazole 40 MG TAB PO SCH (06:13)
[2021-01-05 07:42] LABS: Hematocrit (blood only) 38.4 % (37-47); Hemoglobin 12.7 g/dL (12.0-16.0); Mean Corpuscular Hemoglobin 29.7 pg (25-34); Mean Corpuscular Hgb Conc 33.1 g/dL (32-36); Mean Corpuscular Volume 89.9 fL (80-100); Mean Platelet Volume 9.4 fL (7.4-10.4); Platelet Count 327 K/uL (130-400); RDW Coefficient of Variation 15.8 % (11.5-14.5); RDW Standard Deviation 52.1 fL (36.4-46.3); Red Blood Count 4.27 M/uL (4.2-5.4); White Blood Count 6.99 K/uL (4.8-10.8)
[2021-01-05 08:13] LABS: BUN Creatinine Ratio 13.2 (10-20); Calcium 9.1 mg/dl (8.5-10.1); Creatinine Clr Calc Pharmacy 41.2 ml/min; Est GFR (African American) 42.2; Est GFR (Non-African American) 36.4; Magnesium 2.1 mg/dl (1.8-2.4); Potassium 3.9 mmol/L (3.5-5.1)
[2021-01-05] MEDS: FLUTICASONE/VILANTEROL 200/25MCG 14 PUFFS/INHALER INH SCH (08:38)
[2021-01-05] MEDS: dilTIAZem HCL 240 MG CAPCR PO SCH ×2 (08:39→21:28)
[2021-01-05] MEDS: MULTIVITAMIN TAB PO SCH (08:39)
[2021-01-05] MEDS: METHOCARBAMOL 750 MG TABLET PO SCH ×3 (08:39→21:24)
[2021-01-05] MEDS: GABAPENTIN 800 MG TAB PO SCH ×2 (08:39→21:25)
[2021-01-05] MEDS: POTASSIUM CHLORIDE CRTAB 20 MEQ TABCR PO SCH (08:40)
[2021-01-05] MEDS: VENLAFAXINE HCL XR 150 MG CAPXR PO SCH (08:40)
[2021-01-05] MEDS: APIXABAN 5 MG TABLET PO SCH ×2 (08:40→21:25)
[2021-01-05] MEDS: CHOLECALCIFEROL 1,000 UNITS 25 MCG TAB PO SCH (08:40)
[2021-01-05] MEDS: METOPROLOL SUCC 50MG EXT REL TAB PO SCH ×2 (08:40→21:25)
[2021-01-05] MEDS: CALCITRIOL 0.25 MCG CAPSULE PO SCH (08:40)
[2021-01-05] MEDS: DIGOXIN 0.125 MG TAB PO SCH (08:40)
[2021-01-05] MEDS: VENLAFAXINE HCL XR 75 MG CAPXR PO SCH (08:40)
[2021-01-05] MEDS: CHECK fentaNYL PATCH PLACEMENT SCH ×3 (09:11→15:58)
[2021-01-05] MEDS: fentaNYL 50 MCG/HR TDSY TD SCH (09:12)
[2021-01-05] MEDS: INSULIN ASPART 100 UNITS/ML 3 ML PEN SC SCH ×4 (09:15→21:09)
[2021-01-05] MEDS: INSULIN GLARGINE SOLOSTAR 100 UNITS/ML 3 ML PEN SC SCH ×2 (09:16→21:11)
[2021-01-05] MEDS: FUROSEMIDE 40 MG/4 ML VIAL IV SCH ×2 (10:09→21:38)
[2021-01-05] MEDS: NICOTINE 21 MG/24 HR TDSY TD SCH (10:09)
--- NOTE | 2021-01-05 12:58 | Electrocardiogram Report ---
Test Reason : Blood Pressure : / mmHG Vent. Rate : 120 BPM Atrial Rate : 120 BPM P-R Int : 204 ms QRS Dur : 146 ms QT Int : 374 ms P-R-T Axes : 110 101 -23 degrees QTc Int : 528 ms Sinus tachycardia Right bundle branch block Abnormal ECG When compared with ECG of 10-NOV-2020 06:35, Sinus rhythm has replaced Atrial flutter T wave inversion more evident in Inferior leads Nonspecific T wave abnormality now evident in Lateral leads Confirmed by Jarrod Alaniz ([id number]) on 01/05/2021 12:58:41 PM Referred By: Confirmed By:Tristen Alaniz
--- NOTE | 2021-01-05 14:43 | Cardiology Consultation ---
Date of Consultation January 05, 2021 History of Present Illness Reason for Consultation: Atrial flutter with rapid response Requesting Physician: Dr. Guillaume Attending Physician: Elise Guillaume MD History of Present Illness Patient is a 65-year-old female well-known to this service is ongoing issues include 1. 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 June 13, 2005 cardiac catheterization at [facility] revealing left dominant coronary system with small caliber distal vessels consistent with diabetic history, without obstructive disease. 3. Symptomatic atrial flutter observed initially in February 2013, status post 03/16/2013 and 10/20/2018, July 04 2020 cardioversions. 4. May 02, [address] Masterson, successful ablation of the tricuspid valve to inferior vena caval isthmus with bidirectional block and termination of atrial flutter. Post ablation electrophysiologic study showed dual pathways with echo beats, no inducible SVT however extensive induction was not attempted 5. Coumadin prescribed secondary to the paroxysmal atrial flutter, CHADS2 Score of 5 out of 6 (CHF, HTN, DM, CVA), Lambl's Excrescences, history of DVT, and the mitral valve disease. 6. Increased risk candidate for antiarrhythmic therapy due to QT prolongation from her psych medications. 7. Severe chronic obstructive lung disease, advanced emphysema, chronic hypoxemia with supplemental oxygen therapy 2 L nasal can. Ongoing tobacco abuse 8. Severe pulmonary hypertension 9. Chronic right heart failure, cor pulmonale physiology 10. Obstructive sleep apnea, on CPAP therapy. 11. Anemia 12. Hypertension 13. Hyperlipidemia 14. Type II diabetes mellitus with gastroparesis 15. Stage III chronic kidney disease Patient presents this admission on referral from primary care office. Symptoms of worsening dyspnea and rapid heart rate noted. History is notable for hospitalizations this winter with recurrent atrial flutter with ultimate goals attempts at rate control. Patient did not feel she was tolerating increased dose of diltiazem and reduce this dose at home. On seeing primary care yesterday she was tachycardic and dyspneic and referred to the ER for further evaluation. Chest x-ray revealed increased interstitial markings and edema. Patient denies any chest pains. Patient was given IV metoprolol in addition to usual dose of diltiazem with slowing of heart rate and begun on IV diuretics with improved symptoms. Patient currently comfortable, eating lunch at time of exam. No fevers chills or unexplained infections. Patient did test positive for Covid on presentation but had prior exposure and infection 3 months ago. No bleeding difficulties. Remains on Eliquis. No overt orthopnea. Has been wearing oxygen as prescribed Allergies Allergy/AdvReac Type Severity Reaction Status Date / Time bee venom protein (honey bee) Allergy Severe SWELLING Verified 01/04/21 16:00 lisinopril Allergy Severe ANGIOEDEMA, Verified 01/04/21 16:00 FACIAL CELLULITIS, RASH strawberry Allergy Severe LIPS, Verified 01/04/21 16:00 TONGUE, FACE SWELLS alprazolam Allergy Intermediate RED FACE, Verified 01/04/21 16:00 FACE SWELLING potato Allergy Intermediate BBQ chips Verified 01/04/21 16:00 - facial swelling alendronate sodium Allergy Unknown ON [facility] MED Verified 01/04/21 16:00 LIST colesevelam AdvReac Intermediate Abdominal Verified 01/04/21 16:00 Pain lactose AdvReac Intermediate VOMTING Verified 01/04/21 16:00 DIARRHEA ABDOMINAL PAIN-LACTOSE INTOLERANCE lithium AdvReac Intermediate jitters Verified 01/04/21 16:00 metronidazole AdvReac Intermediate ABD PAIN, Verified 01/04/21 16:00 WEAKNESS, NAUSEA, VOMITING prednisone AdvReac Mild AGGRESSIVE Verified 01/04/21 16:00 BEHAVIOR Home Medications Medication Instructions Recorded Confirmed Type Spiriva with HandiHaler 1 cap INHALATION QAM 06/19/18 01/04/21 History atorvastatin 40 mg PO HS 06/19/18 01/04/21 History cetirizine 10 mg PO HS 06/19/18 01/04/21 History cholecalciferol (vitamin D3) 1,000 unit PO QAM 06/19/18 01/04/21 History [Vitamin D3] docusate sodium 100 mg PO BID 06/19/18 01/04/21 History epinephrine [EpiPen] 0.3 mg IM DIRECTED PRN 06/19/18 01/04/21 History fentanyl 50 mcg TRANSDERMAL [id number] 06/19/18 01/04/21 History methocarbamol 750 mg PO TID 06/19/18 01/04/21 History multivitamin 1 tab PO QAM 06/19/18 01/04/21 History ondansetron 8 mg PO BID PRN 06/19/18 01/04/21 History venlafaxine 150 mg PO QAM 06/19/18 01/04/21 History trazodone 200 mg PO HS 09/14/18 01/04/21 History venlafaxine 75 mg PO QAM 09/14/18 01/04/21 History zolpidem 5 mg PO HS 09/14/18 01/04/21 History gabapentin 800 mg PO BID 05/28/19 01/04/21 History Lantus U-100 Insulin 18 unit SUBCUT BID 03/02/20 01/04/21 History potassium chloride 40 meq PO DAILY 03/02/20 01/04/21 History levalbuterol HCl 1.25 mg INHALATION Q4H PRN 03/24/20 01/04/21 History nitroglycerin [Nitrostat] 0.4 mg SUBLINGUAL DIRECTED PRN 07/02/20 01/04/21 History oxycodone 10 mg PO Q6H PRN 07/02/20 01/04/21 History fluticasone propion-salmeterol 1 inh INHALATION BID 08/01/20 01/04/21 History [Advair Diskus] calcitriol 0.25 mcg PO 3XWK 10/21/20 01/04/21 History Gaviscon 1 tab PO TID PRN 11/08/20 01/04/21 History acetaminophen 500 mg PO Q6H PRN 11/08/20 01/04/21 History amitriptyline 50 mg PO HS 11/08/20 01/04/21 History benzonatate 100 mg PO TID PRN 11/08/20 01/04/21 History furosemide 80 mg PO BID 11/08/20 01/04/21 History melatonin 10 mg PO HS 11/08/20 01/04/21 History metoprolol succinate 100 mg PO BID 11/08/20 01/04/21 History pantoprazole 40 mg PO DAILYBB 11/08/20 01/04/21 History polyethylene glycol 3350 17 g PO DAILY 11/08/20 01/04/21 History prochlorperazine maleate 10 mg PO Q6H PRN 11/08/20 01/04/21 History [Compazine] apixaban [Eliquis] 5 mg PO BID #60 tab 11/16/20 01/04/21 Rx ammonium lactate 1 applic TOPICAL DAILY 01/04/21 01/04/21 History digoxin 125 mcg PO 3XWK 01/04/21 01/04/21 History diltiazem HCl 240 mg PO BID 01/04/21 01/04/21 History imiquimod [Aldara] 1 applic TOPICAL HS 01/04/21 01/04/21 History levalbuterol tartrate [Xopenex HFA] 1 puff INHALATION Q4H PRN 01/04/21 01/04/21 History nystatin 1 applic TOPICAL TID 01/04/21 01/04/21 History Patient History Medical History Anxiety Asthma 3LPM via n/c mostly continuous (although patient states she does not wear this all the time) Atrial fibrillation a. fib/a. flutter s/p cardioversion (2016) Atrial flutter Lynn esophagus Bipolar disorder Chronic back pain Chronic cor pulmonale Chronic hyponatremia Chronic kidney disease stage III Chronic obstructive pulmonary disease 3LPM via n/c mostly continuous (although patient states she does not wear this all the time) Chronic pain Chronic respiratory failure Chronic respiratory failure with hypoxia, on home oxygen therapy CKD (chronic kidney disease), stage III Compression fracture of T3 vertebra COVID-19 virus detected + 10/11/20 COVID-19 virus infection CVA (cerebral vascular accident) 2004 (per records; patient denies) Depression Diastolic CHF, chronic DM type 2 (diabetes mellitus, type 2) Fibromyalgia Gastroparesis GERD (gastroesophageal reflux disease) History of cardioversion History of Clostridium difficile infection History of DVT (deep vein thrombosis) left "hand" 2004- on AC HTN (hypertension) Hyperlipidemia Hypothyroidism no current medication per doctor orders. 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 Obesity Osteoarthritis Peripheral neuropathy Post traumatic stress disorder Pulmonary HTN Severe obstructive sleep apnea Surgical History History of adenoidectomy History of appendectomy LAPAROSCOPY History of cardiac cath 2004= no stents History of carpal tunnel release left History of cataract surgery BILATERAL History of cholecystectomy LAPAROSCOPY History of colonoscopy History of esophagogastroduodenoscopy (EGD) History of hysterectomy EMIGDIO WITH BSO History of mitral valve repair 2004 + resection fibroelastoma History of tonsillectomy Hx of lumpectomy right breast BENIGN Hx of tubal ligation Hx of umbilical hernia repair S/P trigger finger release RIGHT/LEFT Family History Mother Family history of diabetes mellitus Sister Family history of diabetes mellitus Ulcerative colitis Social History Smoking Status: Current every day smoker Tobacco Type: Cigarettes Cigarettes Per Day: 8; Second Hand Exposure: No; Do You Dip or Chew Tobacco: No; Tobacco Cessation Education Requested by Patient: No Hx Alcohol Use: No Hx Substance Use: No Preferred Language: Polish Communication Ability: Effective Visual Impairment: No Limitations Director Software Quality Assurance Required: No Beliefs That Will Affect Care: None marital status: / Current Living Situation: Alone Current Living Situation Comment: APARTMENT Other Information That Helps Us Care for You: No Feels Safe at Home: Yes Safety Concerns: Feels Safe At This Time Assistive Devices: Oxygen - Continuous Review of Systems Review of Systems: All systems reviewed & are unremarkable except as noted in HPI & below Results & Data ([facility]) Vital Signs (Past 12 Hours) Vital Signs Temp Pulse Pulse Resp BP Pulse Ox 01/05/21 12:05 36.9 C 90 19 124/73 90 01/05/21 11:15 102 H 24 89 L 01/05/21 08:40 95 H 01/05/21 07:38 84 01/05/21 07:21 79 18 95 01/05/21 06:39 36.9 C 82 20 110/66 96 01/05/21 04:13 37.0 C 82 115/73 93 01/05/21 03:36 82 16 92 01/05/21 03:29 82 16 91 01/05/21 03:19 81 18 91 Laboratory Results Laboratory Results - last 24 hr 01/04/21 01/04/21 01/04/21 14:48 14:48 15:04 WBC RBC Hgb Hct MCV MCH MCHC RDW Std Deviation RDW Coeff of King Plt Count MPV Immature Gran % (Auto) Neut % (Auto) Lymph % (Auto) Sherman % (Auto) Eos % (Auto) Baso % (Auto) Neut # (Auto) Lymph # (Auto) Sherman # (Auto) Eos # (Auto) Baso # (Auto) Immature Gran # (Auto) PT INR APTT PTT Ratio Sodium Potassium Chloride Carbon Dioxide Anion Gap BUN Creatinine Est Cr Clr Drug Dosing Est GFR ( Amer) Est GFR (Non-Af Amer) BUN/Creatinine Ratio Glucose POC Glucose Lactate Calcium Magnesium Total Bilirubin AST ALT Alkaline Phosphatase Troponin I NT-Pro-B Natriuret Pep Total Protein Albumin Globulin Albumin/Globulin Ratio Lipase Procalcitonin < 0.05 TSH Urine Color Urine Appearance Urine pH Ur Specific [place] Urine Protein Urine Glucose (UA) Urine Ketones Urine Blood Urine Nitrite Urine Bilirubin Urine Urobilinogen Ur Leukocyte Esterase Urine WBC (Auto) Urine RBC (Auto) U Hyaline Cast (Auto) U Epithel Cells (Auto) Urine Bacteria (Auto) Digoxin COVID-19 Eval Order [facility] at [facility] SARS-CoV-2 (PCR) POSITIVE A* Influenza Type A (PCR) Negative Influenza Type B (PCR) Negative RSV (RT-PCR) Negative 01/04/21 01/04/21 01/04/21 15:04 15:04 15:04 WBC 6.69 RBC 4.21 Hgb 12.6 Hct 37.6 MCV 89.3 MCH 29.9 MCHC 33.5 RDW Std Deviation 50.7 H RDW Coeff of King 15.6 H Plt Count 334 MPV 9.5 Immature Gran % (Auto) 0.3 Neut % (Auto) 81.8 Lymph % (Auto) 9.3 Sherman % (Auto) 8.5 Eos % (Auto) 0.0 Baso % (Auto) 0.1 Neut # (Auto) 5.47 Lymph # (Auto) 0.62 L Sherman # (Auto) 0.57 Eos # (Auto) 0.00 Baso # (Auto) 0.01 Immature Gran # (Auto) 0.02 PT 11.7 INR 1.2 H APTT 30.5 PTT Ratio 1.2 Sodium Potassium Chloride Carbon Dioxide Anion Gap BUN Creatinine Est Cr Clr Drug Dosing Est GFR ( Amer) Est GFR (Non-Af Amer) BUN/Creatinine Ratio Glucose POC Glucose Lactate 1.0 Calcium Magnesium Total Bilirubin AST ALT Alkaline Phosphatase Troponin I NT-Pro-B Natriuret Pep Total Protein Albumin Globulin Albumin/Globulin Ratio Lipase Procalcitonin TSH Urine Color Urine Appearance Urine pH Ur Specific [place] Urine Protein Urine Glucose (UA) Urine Ketones Urine Blood Urine Nitrite Urine Bilirubin Urine Urobilinogen Ur Leukocyte Esterase Urine WBC (Auto) Urine RBC (Auto) U Hyaline Cast (Auto) U Epithel Cells (Auto) Urine Bacteria (Auto) Digoxin COVID-19 Eval Order SARS-CoV-2 (PCR) Influenza Type A (PCR) Influenza Type B (PCR) RSV (RT-PCR) 01/04/21 01/04/21 01/04/21 15:04 15:30 17:36 WBC RBC Hgb Hct MCV MCH MCHC RDW Std Deviation RDW Coeff of King Plt Count MPV Immature Gran % (Auto) Neut % (Auto) Lymph % (Auto) Sherman % (Auto) Eos % (Auto) Baso % (Auto) Neut # (Auto) Lymph # (Auto) Sherman # (Auto) Eos # (Auto) Baso # (Auto) Immature Gran # (Auto) PT INR APTT PTT Ratio Sodium 135 L Potassium 3.8 Chloride 99 Carbon Dioxide 32 Anion Gap 4.0 BUN 18 Creatinine 1.51 H Est Cr Clr Drug Dosing 40.5 Est GFR ( Amer) 41.9 Est GFR (Non-Af Amer) 36.1 BUN/Creatinine Ratio 11.6 Glucose 108 H POC Glucose Lactate Calcium 9.1 Magnesium 1.7 L Total Bilirubin 0.5 AST 34 ALT 29 Alkaline Phosphatase 92 Troponin I < 0.015 NT-Pro-B Natriuret Pep 4491 H Total Protein 6.8 Albumin 2.2 L Globulin 4.6 H Albumin/Globulin Ratio 0.5 L Lipase 49 L Procalcitonin TSH 0.928 Urine Color Yellow Urine Appearance Clear Urine pH 6.5 Ur Specific [place] 1.008 Urine Protein 1+ H Urine Glucose (UA) Negative Urine Ketones Negative Urine Blood Trace H Urine Nitrite Negative Urine Bilirubin Negative Urine Urobilinogen Negative Ur Leukocyte Esterase Negative Urine WBC (Auto) 0 Urine RBC (Auto) 0-4 U Hyaline Cast (Auto) 1-5 U Epithel Cells (Auto) 10-20 H Urine Bacteria (Auto) Negative Digoxin 0.4 L COVID-19 Eval Order SARS-CoV-2 (PCR) Influenza Type A (PCR) Influenza Type B (PCR) RSV (RT-PCR) 01/04/21 01/05/21 01/05/21 20:19 06:58 06:58 WBC 6.99 RBC 4.27 Hgb 12.7 Hct 38.4 MCV 89.9 MCH 29.7 MCHC 33.1 RDW Std Deviation 52.1 H RDW Coeff of King 15.8 H Plt Count 327 MPV 9.4 Immature Gran % (Auto) Neut % (Auto) Lymph % (Auto) Sherman % (Auto) Eos % (Auto) Baso % (Auto) Neut # (Auto) Lymph # (Auto) Sherman # (Auto) Eos # (Auto) Baso # (Auto) Immature Gran # (Auto) PT INR APTT PTT Ratio Sodium 139 Potassium 3.9 Chloride 102 Carbon Dioxide 32 Anion Gap 5.0 BUN 20 H Creatinine 1.50 H Est Cr Clr Drug Dosing 41.2 Est GFR ( Amer) 42.2 Est GFR (Non-Af Amer) 36.4 BUN/Creatinine Ratio 13.2 Glucose 108 H POC Glucose 108 H Lactate Calcium 9.1 Magnesium 2.1 Total Bilirubin AST ALT Alkaline Phosphatase Troponin I NT-Pro-B Natriuret Pep Total Protein Albumin Globulin Albumin/Globulin Ratio Lipase Procalcitonin TSH Urine Color Urine Appearance Urine pH Ur Specific [place] Urine Protein Urine Glucose (UA) Urine Ketones Urine Blood Urine Nitrite Urine Bilirubin Urine Urobilinogen Ur Leukocyte Esterase Urine WBC (Auto) Urine RBC (Auto) U Hyaline Cast (Auto) U Epithel Cells (Auto) Urine Bacteria (Auto) Digoxin COVID-19 Eval Order SARS-CoV-2 (PCR) Influenza Type A (PCR) Influenza Type B (PCR) RSV (RT-PCR) 01/05/21 01/05/21 07:34 12:02 WBC RBC Hgb Hct MCV MCH MCHC RDW Std Deviation RDW Coeff of King Plt Count MPV Immature Gran % (Auto) Neut % (Auto) Lymph % (Auto) Sherman % (Auto) Eos % (Auto) Baso % (Auto) Neut # (Auto) Lymph # (Auto) Sherman # (Auto) Eos # (Auto) Baso # (Auto) Immature Gran # (Auto) PT INR APTT PTT Ratio Sodium Potassium Chloride Carbon Dioxide Anion Gap BUN Creatinine Est Cr Clr Drug Dosing Est GFR ( Amer) Est GFR (Non-Af Amer) BUN/Creatinine Ratio Glucose POC Glucose 101 H 91 Lactate Calcium Magnesium Total Bilirubin AST ALT Alkaline Phosphatase Troponin I NT-Pro-B Natriuret Pep Total Protein Albumin Globulin Albumin/Globulin Ratio Lipase Procalcitonin TSH Urine Color Urine Appearance Urine pH Ur Specific [place] Urine Protein Urine Glucose (UA) Urine Ketones Urine Blood Urine Nitrite Urine Bilirubin Urine Urobilinogen Ur Leukocyte Esterase Urine WBC (Auto) Urine RBC (Auto) U Hyaline Cast (Auto) U Epithel Cells (Auto) Urine Bacteria (Auto) Digoxin COVID-19 Eval Order SARS-CoV-2 (PCR) Influenza Type A (PCR) Influenza Type B (PCR) RSV (RT-PCR)
--- NOTE | 2021-01-05 16:19 | Electrocardiogram Report ---
Test Reason : Blood Pressure : / mmHG Vent. Rate : 079 BPM Atrial Rate : 079 BPM P-R Int : 196 ms QRS Dur : 148 ms QT Int : 430 ms P-R-T Axes : 080 095 024 degrees QTc Int : 493 ms Normal sinus rhythm Right bundle branch block Abnormal ECG When compared with ECG of 04-JAN-2021 14:23, (unconfirmed) Vent. rate has decreased BY 41 BPM Minimal criteria for Inferior infarct are no longer Present T wave inversion less evident in Inferior leads Confirmed by Jarrod Alaniz ([id number]) on 01/05/2021 4:19:49 PM Referred By: Manoj Goins Confirmed By:Tristen Alaniz
--- NOTE | 2021-01-05 17:17 | Cardiology Consultation ---
Date of Consultation January 05, 2021 Assessment & Plan (1) Atrial flutter with rapid ventricular response: 65-year-old female with complex history as outlined who presents now with worsening shortness of breath, tachycardia which appears to be secondary to reduction in medications at home. Patient on large dose of beta-mana and calcium channel mana to maintain heart rate control. The past is done better in sinus post cardioversion though currently contraindications to doing so given congestive heart failure and pulmonary edema on exam. Plan continue IV diuretics and resumption of usual medications. Patient is anticoagulated and could potentially consider elevated risk cardioversion if clinical course progresses. Otherwise we will continue rate control with multiple drug regimen Patient is already improved clinically (2) Acute on chronic diastolic CHF (congestive heart failure): (3) CKD (chronic kidney disease), stage III: (4) Chronic respiratory failure with hypoxia, on home oxygen therapy: History of Present Illness Reason for Consultation: Atrial flutter with rapid response, pulmonary edema Requesting Physician: Dr. Humphrey Attending Physician: Elise Guillaume MD History of Present Illness Patient is a 65-year-old female well-known to this service is ongoing issues include 1. 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 June 13, 2005 cardiac catheterization at [facility] revealing left dominant coronary system with small caliber distal vessels consistent with diabetic history, without obstructive disease. 3. Symptomatic atrial flutter observed initially in February 2013, status post 03/16/2013 and 10/20/2018, July 04 2020 cardioversions. 4. May 02, [address] Masterson, successful ablation of the tricuspid valve to inferior vena caval isthmus with bidirectional block and termination of atrial flutter. Post ablation electrophysiologic study showed dual pathways with echo beats, no inducible SVT however extensive induction was not attempted 5. Coumadin prescribed secondary to the paroxysmal atrial flutter, CHADS2 Score of 5 out of 6 (CHF, HTN, DM, CVA), Lambl's Excrescences, history of DVT, and the mitral valve disease. 6. Increased risk candidate for antiarrhythmic therapy due to QT prolongation from her psych medications. 7. Severe chronic obstructive lung disease, advanced emphysema, chronic hypoxemia with supplemental oxygen therapy 2 L nasal can. Ongoing tobacco abuse 8. Severe pulmonary hypertension 9. Chronic right heart failure, cor pulmonale physiology 10. Obstructive sleep apnea, on CPAP therapy. 11. Anemia 12. Hypertension 13. Hyperlipidemia 14. Type II diabetes mellitus with gastroparesis 15. Stage III chronic kidney disease Patient presents this admission on referral from primary care office. Symptoms of worsening dyspnea and rapid heart rate noted. History is notable for hospitalizations this winter with recurrent atrial flutter with ultimate goals attempts at rate control. Patient did not feel she was tolerating increased dose of diltiazem and reduce this dose at home. On seeing primary care yesterday she was tachycardic and dyspneic and referred to the ER for further evaluation. Chest x-ray revealed increased interstitial markings and edema. Patient denies any chest pains. Patient was given IV metoprolol in addition to usual dose of diltiazem with slowing of heart rate and begun on IV diuretics with improved symptoms. Patient currently comfortable, eating lunch at time of exam. No fevers chills or unexplained infections. Patient did test positive for Covid on presentation but had prior exposure and infection 3 months ago. No bleeding difficulties. Remains on Eliquis. No overt orthopnea. Has been wearing oxygen as prescribed Allergies Allergy/AdvReac Type Severity Reaction Status Date / Time bee venom protein (honey bee) Allergy Severe SWELLING Verified 01/04/21 16:00 lisinopril Allergy Severe ANGIOEDEMA, Verified 01/04/21 16:00 FACIAL CELLULITIS, RASH strawberry Allergy Severe LIPS, Verified 01/04/21 16:00 TONGUE, FACE SWELLS alprazolam Allergy Intermediate RED FACE, Verified 01/04/21 16:00 FACE SWELLING potato Allergy Intermediate BBQ chips Verified 01/04/21 16:00 - facial swelling alendronate sodium Allergy Unknown ON [facility] MED Verified 01/04/21 16:00 LIST colesevelam AdvReac Intermediate Abdominal Verified 01/04/21 16:00 Pain lactose AdvReac Intermediate VOMTING Verified 01/04/21 16:00 DIARRHEA ABDOMINAL PAIN-LACTOSE INTOLERANCE lithium AdvReac Intermediate jitters Verified 01/04/21 16:00 metronidazole AdvReac Intermediate ABD PAIN, Verified 01/04/21 16:00 WEAKNESS, NAUSEA, VOMITING prednisone AdvReac Mild AGGRESSIVE Verified 01/04/21 16:00 BEHAVIOR Home Medications Medication Instructions Recorded Confirmed Type Spiriva with HandiHaler 1 cap INHALATION QAM 06/19/18 01/04/21 History atorvastatin 40 mg PO HS 06/19/18 01/04/21 History cetirizine 10 mg PO HS 06/19/18 01/04/21 History cholecalciferol (vitamin D3) 1,000 unit PO QAM 06/19/18 01/04/21 History [Vitamin D3] docusate sodium 100 mg PO BID 06/19/18 01/04/21 History epinephrine [EpiPen] 0.3 mg IM DIRECTED PRN 06/19/18 01/04/21 History fentanyl 50 mcg TRANSDERMAL [id number] 06/19/18 01/04/21 History methocarbamol 750 mg PO TID 06/19/18 01/04/21 History multivitamin 1 tab PO QAM 06/19/18 01/04/21 History ondansetron 8 mg PO BID PRN 06/19/18 01/04/21 History venlafaxine 150 mg PO QAM 06/19/18 01/04/21 History trazodone 200 mg PO HS 09/14/18 01/04/21 History venlafaxine 75 mg PO QAM 09/14/18 01/04/21 History zolpidem 5 mg PO HS 09/14/18 01/04/21 History gabapentin 800 mg PO BID 05/28/19 01/04/21 History Lantus U-100 Insulin 18 unit SUBCUT BID 03/02/20 01/04/21 History potassium chloride 40 meq PO DAILY 03/02/20 01/04/21 History levalbuterol HCl 1.25 mg INHALATION Q4H PRN 03/24/20 01/04/21 History nitroglycerin [Nitrostat] 0.4 mg SUBLINGUAL DIRECTED PRN 07/02/20 01/04/21 History oxycodone 10 mg PO Q6H PRN 07/02/20 01/04/21 History fluticasone propion-salmeterol 1 inh INHALATION BID 08/01/20 01/04/21 History [Advair Diskus] calcitriol 0.25 mcg PO 3XWK 10/21/20 01/04/21 History Gaviscon 1 tab PO TID PRN 11/08/20 01/04/21 History acetaminophen 500 mg PO Q6H PRN 11/08/20 01/04/21 History amitriptyline 50 mg PO HS 11/08/20 01/04/21 History benzonatate 100 mg PO TID PRN 11/08/20 01/04/21 History furosemide 80 mg PO BID 11/08/20 01/04/21 History melatonin 10 mg PO HS 11/08/20 01/04/21 History metoprolol succinate 100 mg PO BID 11/08/20 01/04/21 History pantoprazole 40 mg PO DAILYBB 11/08/20 01/04/21 History polyethylene glycol 3350 17 g PO DAILY 11/08/20 01/04/21 History prochlorperazine maleate 10 mg PO Q6H PRN 11/08/20 01/04/21 History [Compazine] apixaban [Eliquis] 5 mg PO BID #60 tab 11/16/20 01/04/21 Rx ammonium lactate 1 applic TOPICAL DAILY 01/04/21 01/04/21 History digoxin 125 mcg PO 3XWK 01/04/21 01/04/21 History diltiazem HCl 240 mg PO BID 01/04/21 01/04/21 History imiquimod [Aldara] 1 applic TOPICAL HS 01/04/21 01/04/21 History levalbuterol tartrate [Xopenex HFA] 1 puff INHALATION Q4H PRN 01/04/21 01/04/21 History nystatin 1 applic TOPICAL TID 01/04/21 01/04/21 History Patient History Medical History Anxiety Asthma 3LPM via n/c mostly continuous (although patient states she does not wear this all the time) Atrial fibrillation a. fib/a. flutter s/p cardioversion (2017) Atrial flutter Lynn esophagus Bipolar disorder Chronic back pain Chronic cor pulmonale Chronic hyponatremia Chronic kidney disease stage III Chronic obstructive pulmonary disease 3LPM via n/c mostly continuous (although patient states she does not wear this all the time) Chronic pain Chronic respiratory failure Chronic respiratory failure with hypoxia, on home oxygen therapy CKD (chronic kidney disease), stage III Compression fracture of T3 vertebra COVID-19 virus detected + 10/11/20 COVID-19 virus infection CVA (cerebral vascular accident) 2004 (per records; patient denies) Depression Diastolic CHF, chronic DM type 2 (diabetes mellitus, type 2) Fibromyalgia Gastroparesis GERD (gastroesophageal reflux disease) History of cardioversion History of Clostridium difficile infection History of DVT (deep vein thrombosis) left "hand" 2005- on AC HTN (hypertension) Hyperlipidemia Hypothyroidism no current medication per doctor orders. 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 Obesity Osteoarthritis Peripheral neuropathy Post traumatic stress disorder Pulmonary HTN Severe obstructive sleep apnea Surgical History History of adenoidectomy History of appendectomy LAPAROSCOPY History of cardiac cath 2004= no stents History of carpal tunnel release left History of cataract surgery BILATERAL History of cholecystectomy LAPAROSCOPY History of colonoscopy History of esophagogastroduodenoscopy (EGD) History of hysterectomy EMIGDIO WITH BSO History of mitral valve repair 2004 + resection fibroelastoma History of tonsillectomy Hx of lumpectomy right breast BENIGN Hx of tubal ligation Hx of umbilical hernia repair S/P trigger finger release RIGHT/LEFT Family History Mother Family history of diabetes mellitus Sister Family history of diabetes mellitus Ulcerative colitis Social History Smoking Status: Current every day smoker Tobacco Type: Cigarettes Cigarettes Per Day: 8; Second Hand Exposure: No; Do You Dip or Chew Tobacco: No; Tobacco Cessation Education Requested by Patient: No Hx Alcohol Use: No Hx Substance Use: No Preferred Language: Afghan Communication Ability: Effective Visual Impairment: No Limitations Fmd Teacher Required: No Beliefs That Will Affect Care: None marital status: / Current Living Situation: Alone Current Living Situation Comment: APARTMENT Other Information That Helps Us Care for You: No Feels Safe at Home: Yes Safety Concerns: Feels Safe At This Time Assistive Devices: Oxygen - Continuous Review of Systems Review of Systems: All systems reviewed & are unremarkable except as noted in HPI & below Physical Exam Constitutional: + ill appearing Eyes: PERRL, conjunctivae normal, anicteric sclerae ENMT: external ear and nose normal, oropharynx normal Neck: + thick neck Respiratory: Auscultation: + diminished lung sounds Cardiovascular: Rate/Rhythm: + irregularly irregular Heart Sounds: normal S1 and normal S2 Vessels: no JVD Extremities: + edema (1+) Gastrointestinal (Abdomen): normal bowel sounds, soft, nontender, no hepatosplenomegaly Musculoskeletal: no cyanosis or clubbing, extremities motor strength 5/5 Results & Data ([facility]) Vital Signs (Past 12 Hours) Vital Signs Temp Pulse Pulse Pulse Resp BP Pulse Ox 01/05/21 16:07 37.1 C 98 H 20 134/79 90 01/05/21 15:16 107 H 23 91 01/05/21 14:00 87 01/05/21 12:05 36.9 C 90 19 124/73 90 01/05/21 11:15 102 H 24 89 L 01/05/21 08:40 95 H 01/05/21 07:38 84 01/05/21 07:21 79 18 95 01/05/21 06:39 36.9 C 82 20 110/66 96 Laboratory Results Laboratory Results - last 24 hr 01/04/21 01/04/21 01/05/21 17:36 20:19 06:58 WBC 6.99 RBC 4.27 Hgb 12.7 Hct 38.4 MCV 89.9 MCH 29.7 MCHC 33.1 RDW Std Deviation 52.1 H RDW Coeff of King 15.8 H Plt Count 327 MPV 9.4 Sodium Potassium Chloride Carbon Dioxide Anion Gap BUN Creatinine Est Cr Clr Drug Dosing Est GFR ( Amer) Est GFR (Non-Af Amer) BUN/Creatinine Ratio Glucose POC Glucose 108 H Calcium Magnesium Digoxin 0.4 L 01/05/21 01/05/21 01/05/21 06:58 07:34 12:02 WBC RBC Hgb Hct MCV MCH MCHC RDW Std Deviation RDW Coeff of King Plt Count MPV Sodium 139 Potassium 3.9 Chloride 102 Carbon Dioxide 32 Anion Gap 5.0 BUN 20 H Creatinine 1.50 H Est Cr Clr Drug Dosing 41.2 Est GFR ( Amer) 42.2 Est GFR (Non-Af Amer) 36.4 BUN/Creatinine Ratio 13.2 Glucose 108 H POC Glucose 101 H 91 Calcium 9.1 Magnesium 2.1 Digoxin 01/05/21 16:36 WBC RBC Hgb Hct MCV MCH MCHC RDW Std Deviation RDW Coeff of King Plt Count MPV Sodium Potassium Chloride Carbon Dioxide Anion Gap BUN Creatinine Est Cr Clr Drug Dosing Est GFR ( Amer) Est GFR (Non-Af Amer) BUN/Creatinine Ratio Glucose POC Glucose 98 Calcium Magnesium Digoxin ECG Additional Comments: EKG: Atrial flutter with variable AV block, right bundle branch block
[2021-01-05] MEDS: oxyCODONE HCL IR 5 MG TAB (IMMEDIATE RELEASE) PO PRN (17:35)
--- NOTE | 2021-01-05 19:18 | Hospitalist Progress Note ---
Date of Service January 05, 2021 Assessment & Plan (1) Atrial flutter with rapid ventricular response: Present on admission after sending from PCP office for atrial flutter with RVR Received Lopressor 5 mg IV x1 Cardioversion was deferred during recent admission after HUSSEIN demonstrated eviden ce of left apical thrombus Continue diltiazem, metoprolol and digoxin on [facility] Cardiology on board Continue anticoagulant with Eliquis Continue monitor in telemetry (2) Acute on chronic diastolic CHF (congestive heart failure): BNP 4000 on admission CXR showed pulmonary edema Continue IV lasix BID Monitor I/O Strict I's and O'sDottie, daily weights HUSSEIN 11/16/2020 -EF 55 to 60% (3) Chronic obstructive pulmonary disease: (4) Chronic respiratory failure with hypoxia, on home oxygen therapy: Wheezing noted on exam, likely secondary to volume overload No change in sputum production or other infectious signs noted Continue to hold antibiotics for now Continue neb treatment (5) Lab test positive for detection of COVID-19 virus: -Initially tested + 10/11/2020 -Continues to test positive today, do not suspect active infection (6) DM type 2 (diabetes mellitus, type 2): -Hgb A1c 8.3 10/2020 -Lantus and NovoLog (7) Chronic pain: -Continue home fentanyl patch and as needed oxycodone (8) CKD (chronic kidney disease), stage III: -Creatinine 1.5, at baseline -Monitor renal functions (9) Bipolar disorder: -Stable, continue home medications (10) DVT prophylaxis: -On Eliquis Admission and Anticipated Discharge Date Admission Date: January 04, 2021 Subjective Pt was seen and examined for follow up of SOB Sitting in chair with no distress Pt said that her breathing improves Denies any chest pain, palpitation, dizziness and SOB Review of Systems Review of Systems: All systems reviewed & are unremarkable except as noted in Subjective Physical Exam Physical Exam: General- No acute distress Head- atraumatic Eyes- PERRL, EOMI, ENT- oropharynx clear Neck- supple, no JVD Lungs- coarse BS Heart- no murmur Abdomen- normal bowel sounds, soft, nontender Extremities- no calf tenderness Neuro- alert, oriented x 3; PERRL, EOMI; no facial palsy; no dysarthria Skin- warm & dry Results & Data Results & Data ([facility]) Vital Signs (Past 12 Hours) Vital Signs Temp Pulse Pulse Pulse Resp BP Pulse Ox 01/05/21 16:07 37.1 C 98 H 20 134/79 90 01/05/21 15:16 107 H 23 91 01/05/21 14:00 87 01/05/21 12:05 36.9 C 90 19 124/73 90 01/05/21 11:15 102 H 24 89 L 01/05/21 08:40 95 H 01/05/21 07:38 84 01/05/21 07:21 79 18 95
[2021-01-05] MEDS: guaiFENesin 200 MG TAB PO SCH (21:24)
[2021-01-05] MEDS: AMITRIPTYLINE HCL 50 MG TAB PO SCH (21:25)
[2021-01-05] MEDS: ATORVASTATIN 40 MG TAB PO SCH (21:25)
[2021-01-05] MEDS: traZODone HCL 100 MG TAB PO SCH (21:26)
[2021-01-05] MEDS: CETIRIZINE HCL 10 MG TABLET PO SCH (21:26)
[2021-01-06] MEDS: CHECK fentaNYL PATCH PLACEMENT SCH ×3 (02:28→16:00)
[2021-01-06] MEDS: guaiFENesin 200 MG TAB PO SCH ×4 (02:40→20:48)
[2021-01-06] MEDS: PANTOprazole 40 MG TAB PO SCH (06:12)
[2021-01-06] MEDS: ALBUT/IPRATROP 3MG/0.5MG NEB 3 ML VIAL NEB SCH ×4 (07:30→19:53)
[2021-01-06 08:10] LABS: BUN Creatinine Ratio 14.8 (10-20); Calcium 8.9 mg/dl (8.5-10.1); Creatinine Clr Calc Pharmacy 40.5 ml/min; Est GFR (African American) 41.2; Est GFR (Non-African American) 35.6; Potassium 3.6 mmol/L (3.5-5.1)
[2021-01-06] MEDS: APIXABAN 5 MG TABLET PO SCH ×2 (08:21→20:48)
[2021-01-06] MEDS: FLUTICASONE/VILANTEROL 200/25MCG 14 PUFFS/INHALER INH SCH (08:22)
[2021-01-06] MEDS: CHOLECALCIFEROL 1,000 UNITS 25 MCG TAB PO SCH (08:22)
[2021-01-06] MEDS: dilTIAZem HCL 240 MG CAPCR PO SCH ×2 (08:22→20:48)
[2021-01-06] MEDS: METHOCARBAMOL 750 MG TABLET PO SCH ×3 (08:23→20:48)
[2021-01-06] MEDS: GABAPENTIN 800 MG TAB PO SCH ×2 (08:23→20:48)
[2021-01-06] MEDS: INSULIN GLARGINE SOLOSTAR 100 UNITS/ML 3 ML PEN SC SCH ×2 (08:23→21:59)
[2021-01-06] MEDS: METOPROLOL SUCC 50MG EXT REL TAB PO SCH ×2 (08:24→20:48)
[2021-01-06] MEDS: NICOTINE 21 MG/24 HR TDSY TD SCH (08:25)
[2021-01-06] MEDS: MULTIVITAMIN TAB PO SCH (08:25)
[2021-01-06] MEDS: POTASSIUM CHLORIDE CRTAB 20 MEQ TABCR PO SCH (08:25)
[2021-01-06] MEDS: VENLAFAXINE HCL XR 150 MG CAPXR PO SCH (08:25)
[2021-01-06] MEDS: VENLAFAXINE HCL XR 75 MG CAPXR PO SCH (08:25)
[2021-01-06] MEDS: INSULIN ASPART 100 UNITS/ML 3 ML PEN SC SCH ×4 (08:46→20:49)
[2021-01-06] MEDS: FUROSEMIDE 40 MG/4 ML VIAL IV SCH ×2 (08:46→20:56)
--- NOTE | 2021-01-06 10:45 | XRay Report ---
SINGLE VIEW CHEST CLINICAL HISTORY: Hypoxia. FINDINGS: An AP, portable, upright chest radiograph is compared to study dated 01/04/2021. The heart i s enlarged noting atherosclerotic calcification of the thoracic aorta. There is evidence of previous cardiac valve surgery. There is pulmonary vascular congestion with evidence of interstitial edema. Th ere are layering pleural effusions with bibasilar consolidation. No pneumothorax is seen. The skeleta l structures are osteopenic. The bony thorax is grossly intact. Surgical clips project over the right upper chest. IMPRESSION: 1. Cardiomegaly with evidence of congestive failure and pulmonary edema. This has not significant mary nge from yesterday. 2. Layering pleural effusions. ACT 112: Negative or not required by law. Electronically signed by: Jame Batres M.D. 01/06/2021 10:44 AM
--- NOTE | 2021-01-06 13:59 | Cardiology Progress Note ---
Date of Service January 06, 2021 Assessment & Plan (1) Atrial flutter with rapid ventricular response: 65-year-old female with complex history as outlined who presents now with worsening shortness of breath, tachycardia which appears to be secondary to reduction in medications at home. Patient on large dose of beta-mana and calcium channel mana to maintain heart rate control. The past is done better in sinus post cardioversion though currently contraindications to doing so given congestive heart failure and pulmonary edema on exam. Plan continue IV diuretics and resumption of usual medications. Patient is anticoagulated and could potentially consider elevated risk cardioversion if clinical course progresses. Otherwise we will continue rate control with multiple drug regimen Obviously not a good candidate at this time for cardioversion given the requirement of high flow oxygen. We will continue to follow. (2) Acute on chronic diastolic CHF (congestive heart failure): (3) CKD (chronic kidney disease), stage III: (4) Chronic respiratory failure with hypoxia, on home oxygen therapy: Admission and Anticipated Discharge Date Admission Date: January 04, 2021 Subjective Cardiac follow-up completed by chart review, telemetry review and discussion with hospitalist. Patient now requiring high flow oxygen. Telemetry reviewed: Atrial flutter with rates varying from the 80s to 120s. Results & Data ([facility]) Vital Signs (Past 12 Hours) Vital Signs Temp Pulse Pulse Resp BP BP Pulse Ox 01/06/21 11:32 37.0 C 79 19 128/74 94 01/06/21 10:49 80 20 94 01/06/21 09:56 77 20 93 01/06/21 08:00 79 01/06/21 07:31 79 22 93 01/06/21 07:07 36.7 C 79 22 116/68 93 01/06/21 03:18 36.6 C 89 20 111/64 91
[2021-01-06] MEDS: oxyCODONE HCL IR 5 MG TAB (IMMEDIATE RELEASE) PO PRN (18:19)
--- NOTE | 2021-01-06 19:29 | Hospitalist Progress Note ---
Date of Service January 06, 2021 Assessment & Plan (1) Atrial flutter with rapid ventricular response: Present on admission after sending from PCP office for atrial flutter with RVR Received Lopressor 5 mg IV x1 Cardioversion was deferred during recent admission after HUSSEIN demonstrated eviden ce of left apical thrombus Continue diltiazem, metoprolol and digoxin on [facility] Cardiology on board Continue anticoagulant with Eliquis Continue monitor in telemetry (2) Acute on chronic diastolic CHF (congestive heart failure): BNP 4000 on admission CXR showed pulmonary edema Continue IV lasix BID Monitor I/O Strict I's and O's, Dottie, daily weights HUSSEIN 11/16/2020 -EF 55 to 60% Monitor BMP whil on IV lasix (3) Chronic obstructive pulmonary disease: (4) Chronic respiratory failure with hypoxia, on home oxygen therapy: Wheezing noted on exam, likely secondary to volume overload No change in sputum production or other infectious signs noted Repeat CXR on 01/06 showed cardiomegaly with evidence of congestive failure and pulmonary edema. Continue to hold antibiotics for now Pt has been required more oxygen and was placed on high flow oxygen Consider pulm consult if resp status worsening Continue neb treatment (5) Lab test positive for detection of COVID-19 virus: -Initially tested + 10/11/2020 -Continues to test positive today, do not suspect active infection (6) DM type 2 (diabetes mellitus, type 2): -Hgb A1c 8.3 10/2020 -Lantus and NovoLog (7) Chronic pain: -Continue home fentanyl patch and as needed oxycodone (8) CKD (chronic kidney disease), stage III: -Creatinine 1.5, at baseline -Monitor renal functions (9) Bipolar disorder: -Stable, continue home medications (10) DVT prophylaxis: -On Eliquis Admission and Anticipated Discharge Date Admission Date: January 04, 2021 Subjective Pt was seen and examined for follow up of SOB Lying in bed with no distress resting comfortable Early today pt was required more oxygen and was placed on high flow oxygen She said that her breathing improves with the high flow oxygen Denies any chest pain, palpitation and SOB Review of Systems Review of Systems: All systems reviewed & are unremarkable except as noted in Subjective Physical Exam Physical Exam: General- No acute distress Head- atraumatic Eyes- PERRL, EOMI, ENT- oropharynx clear Neck- supple, no JVD Lungs- coarse BS Heart- no murmur Abdomen- normal bowel sounds, soft, nontender Extremities- no calf tenderness Neuro- alert, oriented x 3; PERRL, EOMI; no facial palsy; no dysarthria Skin- warm & dry Results & Data Results & Data ([facility]) Vital Signs (Past 12 Hours) Vital Signs Temp Pulse Pulse Resp BP Pulse Ox 01/06/21 19:03 36.8 C 64 20 125/72 98 01/06/21 16:37 36.8 C 76 21 116/73 90 01/06/21 15:05 104 H 21 89 L 01/06/21 11:32 37.0 C 79 19 128/74 94 01/06/21 10:49 80 20 94 01/06/21 09:56 77 20 93 01/06/21 08:00 79 01/06/21 07:31 79 22 93
[2021-01-06] MEDS: ZOLPIDEM TARTRATE 5 MG TAB PO PRN (20:45)
[2021-01-06] MEDS: CETIRIZINE HCL 10 MG TABLET PO SCH (20:48)
[2021-01-06] MEDS: AMITRIPTYLINE HCL 50 MG TAB PO SCH (20:48)
[2021-01-06] MEDS: traZODone HCL 100 MG TAB PO SCH (20:48)
[2021-01-06] MEDS: ATORVASTATIN 40 MG TAB PO SCH (20:48)
[2021-01-07] MEDS: CHECK fentaNYL PATCH PLACEMENT SCH ×3 (01:53→16:00)
[2021-01-07] MEDS ORDERED: Nursing to Pharmacy Communication SCH (02:00)
[2021-01-07] MEDS: guaiFENesin 200 MG TAB PO SCH ×4 (03:59→21:19)
[2021-01-07] MEDS: PANTOprazole 40 MG TAB PO SCH (06:07)
[2021-01-07] MEDS: ALBUT/IPRATROP 3MG/0.5MG NEB 3 ML VIAL NEB SCH ×4 (07:16→19:14)
--- NOTE | 2021-01-07 07:35 | Electrocardiogram Report ---
Test Reason : Blood Pressure : / mmHG Vent. Rate : 079 BPM Atrial Rate : 079 BPM P-R Int : 180 ms QRS Dur : 154 ms QT Int : 398 ms P-R-T Axes : 082 107 000 degrees QTc Int : 456 ms Atrial flutter Right bundle branch block Abnormal ECG When compared with ECG of 05-JAN-2021 07:13, No significant change was found Confirmed by Scott Judge [id number] on 01/07/2021 7:35:25 AM Referred By: Manoj Goins Confirmed By:Scott Judge
[2021-01-07] MEDS: INSULIN GLARGINE SOLOSTAR 100 UNITS/ML 3 ML PEN SC SCH ×2 (09:00→21:12)
[2021-01-07] MEDS: APIXABAN 5 MG TABLET PO SCH ×2 (09:00→21:20)
[2021-01-07] MEDS: dilTIAZem HCL 240 MG CAPCR PO SCH ×2 (09:01→21:20)
[2021-01-07] MEDS: CHOLECALCIFEROL 1,000 UNITS 25 MCG TAB PO SCH (09:01)
[2021-01-07] MEDS: FLUTICASONE/VILANTEROL 200/25MCG 14 PUFFS/INHALER INH SCH (09:01)
[2021-01-07] MEDS: FUROSEMIDE 40 MG/4 ML VIAL IV SCH ×2 (09:02→17:57)
[2021-01-07] MEDS: GABAPENTIN 800 MG TAB PO SCH ×2 (09:03→21:19)
[2021-01-07] MEDS: METOPROLOL SUCC 50MG EXT REL TAB PO SCH ×2 (09:04→21:19)
[2021-01-07] MEDS: MULTIVITAMIN TAB PO SCH (09:04)
[2021-01-07] MEDS: NICOTINE 21 MG/24 HR TDSY TD SCH (09:04)
[2021-01-07] MEDS: METHOCARBAMOL 750 MG TABLET PO SCH ×3 (09:04→21:20)
[2021-01-07] MEDS: POTASSIUM CHLORIDE CRTAB 20 MEQ TABCR PO SCH (09:05)
[2021-01-07] MEDS: VENLAFAXINE HCL XR 150 MG CAPXR PO SCH (09:05)
[2021-01-07] MEDS: VENLAFAXINE HCL XR 75 MG CAPXR PO SCH (09:05)
[2021-01-07 10:09] LABS: Hematocrit (blood only) 37.7 % (37-47); Hemoglobin 12.6 g/dL (12.0-16.0); Mean Corpuscular Hemoglobin 29.8 pg (25-34); Mean Corpuscular Hgb Conc 33.4 g/dL (32-36); Mean Corpuscular Volume 89.1 fL (80-100); Mean Platelet Volume 9.2 fL (7.4-10.4); Platelet Count 378 K/uL (130-400); RDW Coefficient of Variation 15.4 % (11.5-14.5); RDW Standard Deviation 50.8 fL (36.4-46.3); Red Blood Count 4.23 M/uL (4.2-5.4); White Blood Count 8.92 K/uL (4.8-10.8)
[2021-01-07] MEDS: INSULIN ASPART 100 UNITS/ML 3 ML PEN SC SCH ×4 (10:34→21:10)
[2021-01-07 10:35] LABS: BUN Creatinine Ratio 17.5 (10-20); Creatinine Clr Calc Pharmacy 40.5 ml/min; Est GFR (African American) 41.2; Est GFR (Non-African American) 35.6; Potassium 3.9 mmol/L (3.5-5.1)
--- NOTE | 2021-01-07 12:37 | Cardiology Progress Note ---
Date of Service January 07, 2021 Assessment & Plan (1) Atrial flutter with rapid ventricular response: 65-year-old female with complex history as outlined who presents now with worsening shortness of breath, tachycardia which appears to be secondary to reduction in medications at home. Patient on large dose of beta-mana and calcium channel mana to maintain heart rate control. The past is done better in sinus post cardioversion though currently contraindications to doing so given congestive heart failure and pulmonary edema on exam. Plan continue IV diuretics and resumption of usual medications. Patient is anticoagulated and could potentially consider elevated risk cardioversion if clinical course progresses. Otherwise we will continue rate control with multiple drug regimen Obviously not a good candidate at this time for cardioversion given the requirement of high flow oxygen. We will continue to follow. (2) Acute on chronic diastolic CHF (congestive heart failure): (3) CKD (chronic kidney disease), stage III: (4) Chronic respiratory failure with hypoxia, on home oxygen therapy: Admission and Anticipated Discharge Date Admission Date: January 04, 2021 Subjective Cardiac reevaluation today performed through chart review and review of telemetry. Patient remains on high flow oxygen. Telemetry reviewed: Atrial flutter with variable rates. Results & Data ([facility]) Vital Signs (Past 12 Hours) Vital Signs Temp Pulse Pulse Pulse Resp BP Pulse Ox 01/07/21 11:29 95 H 19 91 01/07/21 10:59 36.8 C 109 H 24 118/64 86 L 01/07/21 08:00 81 01/07/21 07:21 37.3 C 86 23 114/72 95 01/07/21 07:17 77 20 94 01/07/21 04:20 36.7 C 73 70 16 121/76 96 01/07/21 03:21 79 20 96
[2021-01-07] MEDS: oxyCODONE HCL IR 5 MG TAB (IMMEDIATE RELEASE) PO PRN (13:01)
--- NOTE | 2021-01-07 13:54 | Pulmonary Consultation ---
Date of Consultation January 07, 2021 Assessment & Plan (1) Acute and chronic respiratory failure with hypoxia: Chest x-ray 01/06/2021 personally reviewed: Portable film, good respiratory effort, bilateral costophrenic are blunted, increased cardiac silhouette, increased vascular markings with hilar congestion. Mitral clip appreciated --Acute on chronic hypoxic respiratory failure Likely secondary to diastolic CHF from A. fib with RVR BNP 4491 COVID-19 PCR positive, influenza A/B negative Procalcitonin negative Continue with diuretics to keep the patient negative balance BiPAP nightly and as needed shortness of breath --COPD with emphysema Does not seem to be in exacerbation Continue with Breo and Incruse --DARIUS Patient not compliant with CPAP Importance of compliance explained to the patient --COVID-19 positive Patient was initially tested positive on 10/11/2020 She is not showing any signs of active COVID-19 infection Thing to keep in mind is though patient had 2 negative tests in the middle --Obesity Advised to lose with diet and exercise Plan: Continue with O2 supplementation I think patient will benefit more from BiPAP given the diastolic CHF and fluid overload recommend 12/8 40% Can interchange between high flow. Continue with aggressive diuresis to keep the patient negative balance Consider giving extra dose of Lasix if need be. Case was discussed with Dr. Guillaume Pulmonary will follow peripherally. Please call directly with any questions. Please note the above document was generated using voice recognition software. It may contain grammatical, syntax or spelling errors.Any formal questions or concerns about the content, text or information contained within the body of this dictation should be directly addressed to the provider for clarification. (2) Chronic obstructive pulmonary disease: (3) Obesity: (4) DARIUS (obstructive sleep apnea): History of Present Illness Attending Physician: Elise Guillaume MD History of Present Illness 65-year-old female past medical history of chronic hypoxic respiratory failure secondary to COPD on home O2, diastolic CHF, A. fib/flutter on Eliquis, diabetes type 2, CKD, history of mitral valve repair presented to the hospital with worsening shortness of breath going on since last couple of days. Patient also has DARIUS on CPAP but she is not compliant with it. Patient has had issues with rate control. She was found to be in A. fib with RVR. Patient was COVID-19 positive back in the end of September 2020 and she got treated at that time. Pulmonary were consulted because of increasing oxygen requirement. At the time of examination patient was on 35 L, 50% saturating 91%. She was not in any acute distress actually she was dozing off. Patient denied any chest pain, no headache, no nausea, no vomiting. She says the shortness of breath is better compared to when she came to the hospital. She has been coughing bringing up yellow phlegm. Denies any hemoptysis. No dysuria, no diarrhea. No fever or chills. No headache. Social history: Active smoker greater than [id number] smoking history. Allergies Allergy/AdvReac Type Severity Reaction Status Date / Time bee venom protein (honey bee) Allergy Severe SWELLING Verified 01/04/21 16:00 lisinopril Allergy Severe ANGIOEDEMA, Verified 01/04/21 16:00 FACIAL CELLULITIS, RASH strawberry Allergy Severe LIPS, Verified 01/04/21 16:00 TONGUE, FACE SWELLS alprazolam Allergy Intermediate RED FACE, Verified 01/04/21 16:00 FACE SWELLING potato Allergy Intermediate BBQ chips Verified 01/04/21 16:00 - facial swelling alendronate sodium Allergy Unknown ON [facility] MED Verified 01/04/21 16:00 LIST colesevelam AdvReac Intermediate Abdominal Verified 01/04/21 16:00 Pain lactose AdvReac Intermediate VOMTING Verified 01/04/21 16:00 DIARRHEA ABDOMINAL PAIN-LACTOSE INTOLERANCE lithium AdvReac Intermediate jitters Verified 01/04/21 16:00 metronidazole AdvReac Intermediate ABD PAIN, Verified 01/04/21 16:00 WEAKNESS, NAUSEA, VOMITING prednisone AdvReac Mild AGGRESSIVE Verified 01/04/21 16:00 BEHAVIOR Home Medications Medication Instructions Recorded Confirmed Type Spiriva with HandiHaler 1 cap INHALATION QAM 06/19/18 01/04/21 History atorvastatin 40 mg PO HS 06/19/18 01/04/21 History cetirizine 10 mg PO HS 06/19/18 01/04/21 History cholecalciferol (vitamin D3) 1,000 unit PO QAM 06/19/18 01/04/21 History [Vitamin D3] docusate sodium 100 mg PO BID 06/19/18 01/04/21 History epinephrine [EpiPen] 0.3 mg IM DIRECTED PRN 06/19/18 01/04/21 History fentanyl 50 mcg TRANSDERMAL [id number] 06/19/18 01/04/21 History methocarbamol 750 mg PO TID 06/19/18 01/04/21 History multivitamin 1 tab PO QAM 06/19/18 01/04/21 History ondansetron 8 mg PO BID PRN 06/19/18 01/04/21 History venlafaxine 150 mg PO QAM 06/19/18 01/04/21 History trazodone 200 mg PO HS 09/14/18 01/04/21 History venlafaxine 75 mg PO QAM 09/14/18 01/04/21 History zolpidem 5 mg PO HS 09/14/18 01/04/21 History gabapentin 800 mg PO BID 05/28/19 01/04/21 History Lantus U-100 Insulin 18 unit SUBCUT BID 03/02/20 01/04/21 History potassium chloride 40 meq PO DAILY 03/02/20 01/04/21 History levalbuterol HCl 1.25 mg INHALATION Q4H PRN 03/24/20 01/04/21 History nitroglycerin [Nitrostat] 0.4 mg SUBLINGUAL DIRECTED PRN 07/02/20 01/04/21 History oxycodone 10 mg PO Q6H PRN 07/02/20 01/04/21 History fluticasone propion-salmeterol 1 inh INHALATION BID 08/01/20 01/04/21 History [Advair Diskus] calcitriol 0.25 mcg PO 3XWK 10/21/20 01/04/21 History Gaviscon 1 tab PO TID PRN 11/08/20 01/04/21 History acetaminophen 500 mg PO Q6H PRN 11/08/20 01/04/21 History amitriptyline 50 mg PO HS 11/08/20 01/04/21 History benzonatate 100 mg PO TID PRN 11/08/20 01/04/21 History furosemide 80 mg PO BID 11/08/20 01/04/21 History melatonin 10 mg PO HS 11/08/20 01/04/21 History metoprolol succinate 100 mg PO BID 11/08/20 01/04/21 History pantoprazole 40 mg PO DAILYBB 11/08/20 01/04/21 History polyethylene glycol 3350 17 g PO DAILY 11/08/20 01/04/21 History prochlorperazine maleate 10 mg PO Q6H PRN 11/08/20 01/04/21 History [Compazine] apixaban [Eliquis] 5 mg PO BID #60 tab 11/16/20 01/04/21 Rx ammonium lactate 1 applic TOPICAL DAILY 01/04/21 01/04/21 History digoxin 125 mcg PO 3XWK 01/04/21 01/04/21 History diltiazem HCl 240 mg PO BID 01/04/21 01/04/21 History imiquimod [Aldara] 1 applic TOPICAL HS 01/04/21 01/04/21 History levalbuterol tartrate [Xopenex HFA] 1 puff INHALATION Q4H PRN 01/04/21 01/04/21 History nystatin 1 applic TOPICAL TID 01/04/21 01/04/21 History Patient History Medical History Anxiety Asthma 3LPM via n/c mostly continuous (although patient states she does not wear this all the time) Atrial fibrillation a. fib/a. flutter s/p cardioversion (2016) Atrial flutter Lynn esophagus Bipolar disorder Chronic back pain Chronic cor pulmonale Chronic hyponatremia Chronic kidney disease stage III Chronic obstructive pulmonary disease 3LPM via n/c mostly continuous (although patient states she does not wear this all the time) Chronic pain Chronic respiratory failure Chronic respiratory failure with hypoxia, on home oxygen therapy CKD (chronic kidney disease), stage III Compression fracture of T3 vertebra COVID-19 virus detected + 10/11/20 COVID-19 virus infection CVA (cerebral vascular accident) 2004 (per records; patient denies) Depression Diastolic CHF, chronic DM type 2 (diabetes mellitus, type 2) Fibromyalgia Gastroparesis GERD (gastroesophageal reflux disease) History of cardioversion History of Clostridium difficile infection History of DVT (deep vein thrombosis) left "hand" 2004- on AC HTN (hypertension) Hyperlipidemia Hypothyroidism no current medication per doctor orders. 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 Obesity Osteoarthritis Peripheral neuropathy Post traumatic stress disorder Pulmonary HTN Severe obstructive sleep apnea Surgical History History of adenoidectomy History of appendectomy LAPAROSCOPY History of cardiac cath 2005= no stents History of carpal tunnel release left History of cataract surgery BILATERAL History of cholecystectomy LAPAROSCOPY History of colonoscopy History of esophagogastroduodenoscopy (EGD) History of hysterectomy EMIGDIO WITH BSO History of mitral valve repair 2005 + resection fibroelastoma History of tonsillectomy Hx of lumpectomy right breast BENIGN Hx of tubal ligation Hx of umbilical hernia repair S/P trigger finger release RIGHT/LEFT Family History Mother Family history of diabetes mellitus Sister Family history of diabetes mellitus Ulcerative colitis Social History Smoking Status: Current every day smoker Tobacco Type: Cigarettes Cigarettes Per Day: 8; Second Hand Exposure: No; Do You Dip or Chew Tobacco: No; Tobacco Cessation Education Requested by Patient: No Hx Alcohol Use: No Hx Substance Use: No Preferred Language: Yoruba Communication Ability: Effective Visual Impairment: No Limitations Hospital Clinic Assistant Required: No Beliefs That Will Affect Care: None marital status: / Current Living Situation: Alone Current Living Situation Comment: APARTMENT Other Information That Helps Us Care for You: No Feels Safe at Home: Yes Safety Concerns: Feels Safe At This Time Assistive Devices: CPAP and Oxygen - Continuous Review of Systems Review of Systems: All systems reviewed & are unremarkable except as noted in HPI & below Physical Exam Physical Exam: Constitutional: No acute distress HEENT: EOMI, PERRLA Respiratory system: Decreased air entry bilaterally, no wheeze, no rhonchi, positive crackles bilateral lower lobes CVS: S1-S2 positive, no murmurs or gallops, distant heart sounds Abdomen: Soft, nontender, nondistended, positive bowel sounds x4, obese Extremities: +2 pulses bilaterally radialis/ dorsalis pedis, no cyanosis, +1 pitting edema bilateral lower extremity, venous stasis appreciated Neuro: Awake alert oriented x3 Psych: Normal mood and affect G/U: No Sinclair Skin: no rashes, warm and dry Lymphatic: no cervical or axillary lymphadenopathy Results & Data Results & Data ([facility]) Vital Signs (Past 12 Hours) Vital Signs Temp Pulse Pulse Pulse Resp BP Pulse Ox 01/07/21 11:29 95 H 19 91 01/07/21 10:59 36.8 C 109 H 24 118/64 86 L 01/07/21 08:00 81 01/07/21 07:21 37.3 C 86 23 114/72 95 01/07/21 07:17 77 20 94 01/07/21 04:20 36.7 C 73 70 16 121/76 96 01/07/21 03:21 79 20 96 01/07/21 09:46 01/07/21 09:46 PG Care Time/CCT Total # of Minutes Spent Total Time Spent with Patient: Total time spent is greater than 50% in coordination of care (as documented) at patient's floor/unit and/or counseling patient: Coding Level of Care Code 82167 Inpt Consult Level 4 Diagnoses Acute and chronic respiratory failure with hypoxia J96.21 Chronic obstructive pulmonary disease J44.9 Obesity E66.9 DARIUS (obstructive sleep apnea) G47.33
--- NOTE | 2021-01-07 19:13 | Hospitalist Progress Note ---
Date of Service January 07, 2021 Assessment & Plan (1) Atrial flutter with rapid ventricular response: Present on admission after sending from PCP office for atrial flutter with RVR Received Lopressor 5 mg IV x1 Cardioversion was deferred during recent admission after HUSSEIN demonstrated eviden ce of left apical thrombus Continue diltiazem, metoprolol and digoxin on [facility] Cardiology on board Continue anticoagulant with Eliquis Continue monitor in telemetry (2) Acute on chronic diastolic CHF (congestive heart failure): BNP 4000 on admission CXR showed pulmonary edema Continue IV lasix BID HUSSEIN 11/16/2020 -EF 55 to 60% Monitor BMP while on IV lasix Continue monitor I/O (3) Chronic obstructive pulmonary disease: (4) Chronic respiratory failure with hypoxia, on home oxygen therapy: Wheezing noted on exam, likely secondary to volume overload No change in sputum production or other infectious signs noted Repeat CXR on 01/06 showed cardiomegaly with evidence of congestive failure and pulmonary edema. Continue to hold antibiotics for now Currently on high flow oxygen Pulmonary on board Recommended to put on BiPAP given the diastolic CHF and fluid overload on 08/22 40% Can interchange between high flow and Bipap Continue with aggressive diuresis to keep the patient negative balance (5) Lab test positive for detection of COVID-19 virus: -Initially tested + 10/11/2020 -Continues to test positive today, do not suspect active infection (6) DM type 2 (diabetes mellitus, type 2): -Hgb A1c 8.3 10/2020 -Lantus and NovoLog (7) Chronic pain: -Continue home fentanyl patch and as needed oxycodone (8) CKD (chronic kidney disease), stage III: -Creatinine 1.5, at baseline -Monitor renal functions (9) Bipolar disorder: -Stable, continue home medications (10) DVT prophylaxis: -On Eliquis Admission and Anticipated Discharge Date Admission Date: January 04, 2021 Subjective Pt was seen and examined for follow up of SOB Sitting in chair with no distress watching baseball Pt continue to require high flow oxygen She said that her breathing improves Denies any chest pain, palpitation and dizziness Review of Systems Review of Systems: All systems reviewed & are unremarkable except as noted in Subjective Physical Exam Physical Exam: General- No acute distress Head- atraumatic Eyes- PERRL, EOMI, ENT- oropharynx clear Neck- supple, no JVD Lungs- coarse BS Heart- no murmur Abdomen- normal bowel sounds, soft, nontender Extremities- no calf tenderness Neuro- alert, oriented x 3; PERRL, EOMI; no facial palsy; no dysarthria Skin- warm & dry Results & Data Results & Data ([facility]) Vital Signs (Past 12 Hours) Vital Signs Temp Pulse Pulse Pulse Resp BP Pulse Ox 01/07/21 19:03 36.7 C 97 H 22 116/75 92 01/07/21 15:34 37.0 C 74 22 114/72 90 01/07/21 15:21 85 20 89 L 01/07/21 15:16 75 20 90 01/07/21 11:29 95 H 19 91 01/07/21 10:59 36.8 C 109 H 24 118/64 86 L 01/07/21 08:00 81 01/07/21 07:21 37.3 C 86 23 114/72 95 01/07/21 07:17 77 20 94
[2021-01-07] MEDS: fentaNYL 50 MCG/HR TDSY TD SCH (21:13)
[2021-01-07] MEDS: CETIRIZINE HCL 10 MG TABLET PO SCH (21:19)
[2021-01-07] MEDS: AMITRIPTYLINE HCL 50 MG TAB PO SCH (21:20)
[2021-01-07] MEDS: traZODone HCL 100 MG TAB PO SCH (21:20)
[2021-01-07] MEDS: ZOLPIDEM TARTRATE 5 MG TAB PO PRN (21:21)
[2021-01-07] MEDS: ATORVASTATIN 40 MG TAB PO SCH (21:21)
[2021-01-08] MEDS: CHECK fentaNYL PATCH PLACEMENT SCH ×3 (01:02→15:33)
[2021-01-08] MEDS: guaiFENesin 200 MG TAB PO SCH ×4 (03:00→21:09)
[2021-01-08] MEDS: PANTOprazole 40 MG TAB PO SCH (06:07)
[2021-01-08] MEDS: ALBUT/IPRATROP 3MG/0.5MG NEB 3 ML VIAL NEB SCH ×4 (07:02→19:33)
[2021-01-08] MEDS: GABAPENTIN 800 MG TAB PO SCH ×2 (08:13→21:13)
[2021-01-08] MEDS: dilTIAZem HCL 240 MG CAPCR PO SCH ×2 (08:13→21:12)
[2021-01-08] MEDS: METOPROLOL SUCC 50MG EXT REL TAB PO SCH ×2 (08:13→21:14)
[2021-01-08] MEDS: APIXABAN 5 MG TABLET PO SCH ×2 (08:13→21:11)
[2021-01-08] MEDS: METHOCARBAMOL 750 MG TABLET PO SCH ×3 (08:13→21:14)
[2021-01-08] MEDS: DIGOXIN 0.125 MG TAB PO SCH (08:14)
[2021-01-08] MEDS: VENLAFAXINE HCL XR 150 MG CAPXR PO SCH (08:14)
[2021-01-08] MEDS: POTASSIUM CHLORIDE CRTAB 20 MEQ TABCR PO SCH (08:14)
[2021-01-08] MEDS: MULTIVITAMIN TAB PO SCH (08:14)
[2021-01-08] MEDS: CHOLECALCIFEROL 1,000 UNITS 25 MCG TAB PO SCH (08:14)
[2021-01-08] MEDS: VENLAFAXINE HCL XR 75 MG CAPXR PO SCH (08:14)
[2021-01-08] MEDS: CALCITRIOL 0.25 MCG CAPSULE PO SCH (08:14)
[2021-01-08] MEDS: FLUTICASONE/VILANTEROL 200/25MCG 14 PUFFS/INHALER INH SCH (08:15)
[2021-01-08] MEDS: NICOTINE 21 MG/24 HR TDSY TD SCH (08:15)
[2021-01-08] MEDS: UMECLIDINIUM BROMIDE 62.5MCG/BLISTER 7 PUFFS/INHALER INH SCH (08:19)
[2021-01-08] MEDS: FUROSEMIDE 40 MG/4 ML VIAL IV SCH ×2 (08:19→16:24)
[2021-01-08] MEDS: INSULIN ASPART 100 UNITS/ML 3 ML PEN SC SCH ×4 (08:22→21:30)
[2021-01-08] MEDS: INSULIN GLARGINE SOLOSTAR 100 UNITS/ML 3 ML PEN SC SCH (08:25)
--- NOTE | 2021-01-08 08:41 | Cardiology Progress Note ---
Date of Service January 08, 2021 Assessment & Plan (1) Atrial flutter with rapid ventricular response: The patient is currently rate controlled and I would continue her current medications. (2) Acute on chronic diastolic CHF (congestive heart failure): Diuretics per medicine (3) CKD (chronic kidney disease), stage III: Currently stable (4) Chronic respiratory failure with hypoxia, on home oxygen therapy: Multifactorial including post Covid infection. Admission and Anticipated Discharge Date Admission Date: January 04, 2021 Subjective The patient is in the Covid unit. As per protocol chart review only. Review of Systems Review of Systems: Other Physical Exam Physical Exam: Exam is deferred as this is a chart review follow-up only. Results & Data ([facility]) Vital Signs (Past 12 Hours) Vital Signs Temp Pulse Pulse Resp BP Pulse Ox 01/08/21 07:03 75 18 88 L 01/08/21 03:49 36.5 C 66 20 121/75 93 01/08/21 02:37 78 18 94 01/07/21 23:38 36.4 C L 90 18 131/74 82 L 01/07/21 23:20 91 H 20 91 Laboratory Results Laboratory Results - last 24 hr 01/07/21 01/07/21 01/07/21 09:46 09:46 09:46 WBC 8.92 RBC 4.23 Hgb 12.6 Hct 37.7 MCV 89.1 MCH 29.8 MCHC 33.4 RDW Std Deviation 50.8 H RDW Coeff of King 15.4 H Plt Count 378 MPV 9.2 ESR Sodium 137 Potassium 3.9 Chloride 100 Carbon Dioxide 34 H Anion Gap 3.0 BUN 27 H Creatinine 1.53 H Est Cr Clr Drug Dosing 40.5 Est GFR ( Amer) 41.2 Est GFR (Non-Af Amer) 35.6 BUN/Creatinine Ratio 17.5 Glucose 105 H POC Glucose Calcium 9.0 Ferritin C-Reactive Protein 12.90 H 01/07/21 01/07/21 01/07/21 11:21 16:02 20:02 WBC RBC Hgb Hct MCV MCH MCHC RDW Std Deviation RDW Coeff of King Plt Count MPV ESR Sodium Potassium Chloride Carbon Dioxide Anion Gap BUN Creatinine Est Cr Clr Drug Dosing Est GFR ( Amer) Est GFR (Non-Af Amer) BUN/Creatinine Ratio Glucose POC Glucose 94 71 119 H Calcium Ferritin C-Reactive Protein 04/26/21 04/26/21 04/26/21 07:14 07:15 07:15 WBC RBC Hgb Hct MCV MCH MCHC RDW Std Deviation RDW Coeff of King Plt Count MPV ESR 84 H Sodium Pending Potassium Pending Chloride Pending Carbon Dioxide Pending Anion Gap Pending BUN Pending Creatinine Pending Est Cr Clr Drug Dosing Pending Est GFR ( Amer) Pending Est GFR (Non-Af Amer) Pending BUN/Creatinine Ratio Pending Glucose Pending POC Glucose 71 Calcium Pending Ferritin Pending C-Reactive Protein Pending Medications Administered Current Inpatient Medications Acetaminophen (Acetaminophen 325 Mg Tab) 650 mg PO Q4H PRN PRN Reason: Pain or Fever Stop: 02/03/21 19:47 Albuterol (Albut/Ipratrop 3mg/0.5mg Neb 3 Ml Vial) 3 ml NEB QIDR [facility] Stop: 02/03/21 18:59 Last Admin: 01/08/21 07:02 Dose: 3 ml Documented by: Amitriptyline HCl (Amitriptyline Hcl 50 Mg Tab) 50 mg PO [facility] Stop: 02/03/21 20:59 Last Admin: 01/07/21 21:20 Dose: 50 mg Documented by: Apixaban (Apixaban 5 Mg Tablet) 5 mg PO BID [facility] Stop: 02/03/21 20:59 Last Admin: 01/08/21 08:13 Dose: 5 mg Documented by: Atorvastatin Calcium (Atorvastatin 40 Mg Tab) 40 mg PO [facility] Stop: 02/03/21 20:59 Last Admin: 01/07/21 21:21 Dose: 40 mg Documented by: Calcitriol (Calcitriol 0.25 Mcg Capsule) 0.25 mcg PO MoWeFr@0900 [facility] Stop: 02/04/21 08:59 Last Admin: 01/08/21 08:14 Dose: 0.25 mcg Documented by: Cetirizine HCl (Cetirizine Hcl 10 Mg Tablet) 10 mg PO [facility] Stop: 02/03/21 20:59 Last Admin: 01/07/21 21:19 Dose: 10 mg Documented by: Dextrose (Dextrose 50% 50 Ml Syringe) 25 - 50 ml IV UD PRN; Protocol PRN Reason: Hypoglycemia Protocol Stop: 02/03/21 19:47 Digoxin (Digoxin 0.125 Mg Tab) 0.125 mg PO MoWeFr@0900 [facility] Stop: 02/04/21 08:59 Last Admin: 01/08/21 08:14 Dose: 0.125 mg Documented by: Diltiazem HCl (Diltiazem Hcl 240 Mg Capcr) 240 mg PO BID [facility] Stop: 02/03/21 20:59 Last Admin: 01/08/21 08:13 Dose: 240 mg Documented by: Fentanyl (Fentanyl 50 Mcg/Hr Tdsy) 50 mcg TD Q3D@2000 [facility] Stop: 01/18/21 19:59 Last Admin: 01/07/21 21:13 Dose: 50 mcg Documented by: Fluticasone/Vilanterol (Fluticasone/Vilanterol 200/25mcg 14 Puffs/Inhaler) 1 puffs INH DAILY [facility] Stop: 02/04/21 08:59 Last Admin: 01/08/21 08:15 Dose: 1 puffs Documented by: Furosemide (Furosemide 40 Mg/4 Ml Vial) 40 mg IV BID17 JORGE Stop: 02/06/21 08:59 Last Admin: 01/08/21 08:19 Dose: 40 mg Documented by: Gabapentin (Gabapentin 800 Mg Tab) 800 mg PO BID [facility] Stop: 02/03/21 20:59 Last Admin: 01/08/21 08:13 Dose: 800 mg Documented by: Glucagon (Glucagon For Inj 1 Mg Vial) 1 mg SQ UD PRN; Protocol PRN Reason: Hypoglycemia Protocol Stop: 02/03/21 19:47 Glucose (Glucose 10 Tabs/Tube) 4 - 8 tabs PO UD PRN; Protocol PRN Reason: Hypoglycemia Protocol Stop: 02/03/21 19:47 Glucose (Glucose 40% Gel 15 Gm Tube) 15 - 30 gm PO UD PRN; Protocol PRN Reason: Hypoglycemia Protocol Stop: 02/03/21 19:47 Guaifenesin (Guaifenesin 200 Mg Tab) 200 mg PO Q6H [facility] Stop: 02/04/21 19:59 Last Admin: 01/08/21 08:14 Dose: 200 mg Documented by: Insulin Aspart (Insulin Aspart 100 Units/Ml 3 Ml Pen) 0 units SC ACHS [facility] Stop: 02/03/21 20:59 Last Admin: 01/08/21 08:22 Dose: 1 units Documented by: Insulin Glargine (Insulin Glargine Solostar 100 Units/Ml 3 Ml Pen) 10 units SC BID [facility] Stop: 02/03/21 20:59 Last Admin: 01/08/21 08:25 Dose: 10 units Documented by: Methocarbamol (Methocarbamol 750 Mg Tablet) 750 mg PO TID [facility] Stop: 02/03/21 20:59 Last Admin: 01/08/21 08:13 Dose: 750 mg Documented by: Metoprolol Succinate (Metoprolol Succ 50mg Ext Rel Tab) 100 mg PO BID [facility] Stop: 02/03/21 20:59 Last Admin: 01/08/21 08:13 Dose: 100 mg Documented by: Miscellaneous (Remove Nicoderm Patch) 1 ea N/A DAILY@0859 [facility] Stop: 02/04/21 08:58 Last Admin: 01/08/21 08:16 Dose: 1 ea Documented by: Tegancellaneous (Fentanyl Patch Remove & Waste) 1 ea N/A Q3D@1959 [facility] Stop: 02/03/21 19:58 Last Admin: 01/07/21 21:12 Dose: 1 ea Documented by: Miscellaneous (Check Fentanyl Patch Placement) 1 ea N/A QS [facility] Stop: 02/04/21 00:00 Last Admin: 01/08/21 08:15 Dose: 1 ea Documented by: Miscellaneous (Carbohydrates For Hypoglycemia ) 15 - 30 gm PO UD PRN PRN Reason: Hypoglycemia Protocol Stop: 02/03/21 19:47 Multivitamins (Multivitamin Tab) 1 tab PO QAM [facility] Stop: 02/04/21 08:59 Last Admin: 01/08/21 08:14 Dose: 1 tab Documented by: Nicotine (Nicotine 21 Mg/24 Hr Tdsy) 21 mg TD QAM [facility] Stop: 02/03/21 18:29 Last Admin: 01/08/21 08:15 Dose: 21 mg Documented by: Oxycodone HCl (Oxycodone Hcl Ir 5 Mg Tab (Immediate Release)) 10 mg PO Q6H PRN PRN Reason: Pain Stop: 01/18/21 19:47 Last Admin: 01/07/21 13:01 Dose: 10 mg Documented by: Pantoprazole Sodium (Pantoprazole 40 Mg Tab) 40 mg PO DAILYBB [facility] Stop: 02/04/21 06:29 Last Admin: 01/08/21 06:07 Dose: 40 mg Documented by: Potassium Chloride (Potassium Chloride Crtab 20 Meq Tabcr) 40 meq PO DAILY JORGE Stop: 02/04/21 08:59 Last Admin: 01/08/21 08:14 Dose: 40 meq Documented by: Trazodone HCl (Trazodone Hcl 100 Mg Tab) 200 mg PO HS JORGE Stop: 02/03/21 20:59 Last Admin: 01/07/21 21:20 Dose: 200 mg Documented by: Umeclidinium Cameron (Umeclidinium Cameron 62.5mcg/Blister 7 Puffs/Inhaler) 1 puffs INH DAILY JORGE Stop: 02/07/21 08:59 Last Admin: 01/08/21 08:19 Dose: 1 puffs Documented by: Venlafaxine HCl (Venlafaxine Hcl Xr 150 Mg Capxr) 150 mg PO QAM [facility] Stop: 02/04/21 08:59 Last Admin: 01/08/21 08:14 Dose: 150 mg Documented by: Venlafaxine HCl (Venlafaxine Hcl Xr 75 Mg Capxr) 75 mg PO QAM JORGE Stop: 02/04/21 08:59 Last Admin: 01/08/21 08:14 Dose: 75 mg Documented by: Vitamin D (Cholecalciferol 1,000 Units 25 Mcg Tab) 1,000 units PO QAM [facility] Stop: 02/04/21 08:59 Last Admin: 01/08/21 08:14 Dose: 1,000 units Documented by: Zolpidem Tartrate (Zolpidem Tartrate 5 Mg Tab) 5 mg PO HS PRN PRN Reason: Sleep Stop: 02/05/21 19:28 Last Admin: 01/07/21 21:21 Dose: 5 mg Documented by:
[2021-01-08 09:17] LABS: C Reactive Protein 10.9 mg/dl (0-0.29); Calcium 9.1 mg/dl (8.5-10.1); Creatinine Clr Calc Pharmacy 36.6 ml/min; Est GFR (African American) 36.6; Est GFR (Non-African American) 31.5; Potassium 3.9 mmol/L (3.5-5.1)
--- NOTE | 2021-01-08 17:43 | Hospitalist Progress Note ---
Date of Service January 08, 2021 Assessment & Plan (1) Atrial flutter with rapid ventricular response: Present on admission after sending from PCP office for atrial flutter with RVR Received Lopressor 5 mg IV x1 Cardioversion was deferred during recent admission after HUSSEIN demonstrated eviden ce of left apical thrombus rate control Continue diltiazem, metoprolol and digoxin on F Cardiology on board Continue anticoagulant with Eliquis Continue monitor in telemetry (2) Acute on chronic diastolic CHF (congestive heart failure): BNP 4000 on admission CXR showed pulmonary edema Continue IV lasix BID HUSSEIN 11/16/2020 -EF 55 to 60% Monitor BMP while on IV lasix Continue monitor I/O (3) Chronic obstructive pulmonary disease: (4) Chronic respiratory failure with hypoxia, on home oxygen therapy: Wheezing noted on exam, likely secondary to volume overload No change in sputum production or other infectious signs noted Repeat CXR on 01/06 showed cardiomegaly with evidence of congestive failure and pulmonary edema. Continue to hold antibiotics for now Currently on high flow oxygen Pulmonary on board Recommended to put on BiPAP given the diastolic CHF and fluid overload on 08/22 40% Can interchange between high flow and Bipap Continue with aggressive diuresis to keep the patient negative balance (5) Lab test positive for detection of COVID-19 virus: Patient was initially tested positive on 10/11/2020 She is not showing any signs of active COVID-19 infection She had 2 negative tests in the middle Inflammatory marker trending down with C-rec decreased from 12 to 10 ESR 84 and Ferritin 452 Continue high flow oxygen and interchange with BIPAP (6) DM type 2 (diabetes mellitus, type 2): -Hgb A1c 8.3 10/2020 -Lantus and NovoLog (7) Chronic pain: -Continue home fentanyl patch and as needed oxycodone (8) CKD (chronic kidney disease), stage III: Creatinine 1.5, at baseline creatinine 1.69 today Monitor renal functions (9) Bipolar disorder: -Stable, continue home medications (10) DVT prophylaxis: -On Eliquis Admission and Anticipated Discharge Date Admission Date: January 04, 2021 Subjective Pt was seen and examined for follow up of SOB Lying in bed with no distress She said that she had a good sleep last night She said that her breathing seems to get better Denies any chest pain, palpitation, dizziness and fever Review of Systems Review of Systems: All systems reviewed & are unremarkable except as noted in Subjective Physical Exam Physical Exam: General- No acute distress Head- atraumatic Eyes- PERRL, EOMI, ENT- oropharynx clear Neck- supple, no JVD Lungs- coarse BS Heart- no murmur Abdomen- normal bowel sounds, soft, nontender Extremities- no calf tenderness Neuro- alert, oriented x 3; PERRL, EOMI; no facial palsy; no dysarthria Skin- warm & dry Results & Data Results & Data ([facility]) Vital Signs (Past 12 Hours) Vital Signs Temp Pulse Resp BP BP Pulse Ox 01/08/21 15:49 36.7 C 90 18 112/65 92 01/08/21 15:11 88 18 95 01/08/21 11:52 122 H 24 90 01/08/21 08:00 36.7 C 70 16 131/78 98 01/08/21 07:03 75 18 88 L
[2021-01-08] MEDS: AMITRIPTYLINE HCL 50 MG TAB PO SCH (21:10)
[2021-01-08] MEDS: ATORVASTATIN 40 MG TAB PO SCH (21:11)
[2021-01-08] MEDS: CETIRIZINE HCL 10 MG TABLET PO SCH (21:11)
[2021-01-08] MEDS: traZODone HCL 100 MG TAB PO SCH (21:19)
[2021-01-08] MEDS: ZOLPIDEM TARTRATE 5 MG TAB PO PRN (21:36)
[2021-01-08] MEDS: oxyCODONE HCL IR 5 MG TAB (IMMEDIATE RELEASE) PO PRN (21:36)
[2021-01-09] MEDS: CHECK fentaNYL PATCH PLACEMENT SCH ×3 (00:09→17:05)
[2021-01-09] MEDS: guaiFENesin 200 MG TAB PO SCH ×4 (03:50→19:36)
[2021-01-09] MEDS: PANTOprazole 40 MG TAB PO SCH (05:38)
[2021-01-09 07:03] LABS: BUN Creatinine Ratio 19.2 (10-20); Calcium 8.7 mg/dl (8.5-10.1); Creatinine Clr Calc Pharmacy 41.8 ml/min; Est GFR (African American) 42.9; Potassium 4.4 mmol/L (3.5-5.1)
[2021-01-09 07:10] LABS: C Reactive Protein 9.92 mg/dl (0-0.29); Ferritin 438.7 ng/ml (8-388)
[2021-01-09] MEDS: ALBUT/IPRATROP 3MG/0.5MG NEB 3 ML VIAL NEB SCH ×4 (07:14→20:11)
[2021-01-09] MEDS: INSULIN ASPART 100 UNITS/ML 3 ML PEN SC SCH ×4 (08:40→21:26)
[2021-01-09] MEDS: INSULIN GLARGINE SOLOSTAR 100 UNITS/ML 3 ML PEN SC SCH ×2 (08:41→21:26)
[2021-01-09] MEDS: dilTIAZem HCL 240 MG CAPCR PO SCH ×2 (09:00→21:41)
[2021-01-09] MEDS: METOPROLOL SUCC 50MG EXT REL TAB PO SCH ×2 (09:00→21:38)
[2021-01-09] MEDS: VENLAFAXINE HCL XR 150 MG CAPXR PO SCH ×2 (09:00→10:13)
[2021-01-09] MEDS: POTASSIUM CHLORIDE CRTAB 20 MEQ TABCR PO SCH (09:00)
[2021-01-09] MEDS: UMECLIDINIUM BROMIDE 62.5MCG/BLISTER 7 PUFFS/INHALER INH SCH (09:01)
[2021-01-09] MEDS: CHOLECALCIFEROL 1,000 UNITS 25 MCG TAB PO SCH (09:01)
[2021-01-09] MEDS: METHOCARBAMOL 750 MG TABLET PO SCH ×3 (09:01→21:39)
[2021-01-09] MEDS: APIXABAN 5 MG TABLET PO SCH ×2 (09:01→21:40)
[2021-01-09] MEDS: FLUTICASONE/VILANTEROL 200/25MCG 14 PUFFS/INHALER INH SCH (09:02)
[2021-01-09] MEDS: NICOTINE 21 MG/24 HR TDSY TD SCH (09:04)
[2021-01-09] MEDS: GABAPENTIN 800 MG TAB PO SCH ×2 (09:04→21:40)
[2021-01-09] MEDS: MULTIVITAMIN TAB PO SCH (09:04)
[2021-01-09] MEDS: FUROSEMIDE 40 MG/4 ML VIAL IV SCH (10:10)
[2021-01-09] MEDS: VENLAFAXINE HCL XR 75 MG CAPXR PO SCH (10:13)
--- NOTE | 2021-01-09 12:46 | XRay Report ---
XR chest 1V portable HISTORY: 65 years-old Female f/u follow-up study in a patient with hypoxia COMPARISON: Chest radiograph 01/06/2021, chest CT 11/10/2020 TECHNIQUE: Portable AP view of the chest FINDINGS: Cardiac silhouette is enlarged. Calcified plaque of the thoracic aorta. Mitral annular prosthesis. Pr ominence of the pulmonary arteries. The left inferior costophrenic angle is not imaged and is outside the field of view. Layering pleural effusions, left greater then right. Left greater than right biba silar consolidation has mildly progressed in the left lung base. There is progressively worsened righ t greater than left interstitial opacities. Degenerative changes of the shoulders and spine. Surgical clips of the right axilla. IMPRESSION: 1. Cardiomegaly with progressively worsened right greater than left asymmetric pulmonary edema. 2. Layering pleural effusions. 3. Progressive consolidation within the left greater than right lung bases suggests atelectasis versu s pneumonitis. 4. Pulmonary artery hypertension. ACT 112: Negative or not required by law. The above report was generated using voice recognition software. It may contain grammatical, syntax o r spelling errors. Electronically signed by: Ye Alva M.D. 01/09/2021 12:44 PM
--- NOTE | 2021-01-09 16:29 | Hospitalist Progress Note ---
Date of Service January 09, 2021 Assessment & Plan (1) Atrial flutter with rapid ventricular response: Present on admission after sending from PCP office for atrial flutter with RVR Received Lopressor 5 mg IV x1 Cardioversion was deferred during recent admission after HUSSEIN demonstrated eviden ce of left apical thrombus rate control Continue diltiazem, metoprolol and digoxin on MWF Cardiology on board Continue anticoagulant with Eliquis Continue monitor in telemetry (2) Acute on chronic diastolic CHF (congestive heart failure): BNP 4000 on admission Repeat CXR today showed cardiomegaly with progressively worsened right greater than left asymmetric pulmonary edema. Layering pleural effusions. HUSSEIN 11/16/2020 -EF 55 to 60% Will increased lasix to 60mg IV BID Cardiology on board Monitor BMP while on IV lasix Continue monitor I/O (3) Chronic obstructive pulmonary disease: (4) Chronic respiratory failure with hypoxia, on home oxygen therapy: Wheezing noted on exam, likely secondary to volume overload No change in sputum production or other infectious signs noted Repeat CXR on 01/06 showed cardiomegaly with evidence of congestive failure and pulmonary edema. Continue to hold antibiotics for now Currently on high flow oxygen Pulmonary on board Recommended to put on BiPAP given the diastolic CHF and fluid overload on 08/22 40% Can interchange between high flow and Bipap Continue with aggressive diuresis to keep the patient negative balance (5) Lab test positive for detection of COVID-19 virus: Patient was initially tested positive on 10/11/2020 She is not showing any signs of active COVID-19 infection She had 2 negative tests in the middle Inflammatory marker trending down with C-rec decreased from 12 to 10 ESR 84 and Ferritin 452 Continue high flow oxygen and interchange with BIPAP (6) DM type 2 (diabetes mellitus, type 2): -Hgb A1c 8.3 10/2020 -Lantus and NovoLog (7) Chronic pain: -Continue home fentanyl patch and as needed oxycodone (8) CKD (chronic kidney disease), stage III: Creatinine 1.5, at baseline creatinine 1.4 today Monitor renal functions while on IV lasix (9) Bipolar disorder: -Stable, continue home medications (10) DVT prophylaxis: -On Eliquis Admission and Anticipated Discharge Date Admission Date: January 04, 2021 Subjective Pt was seen and examined for follow up of SOB Sitting at the edge of the bed continue to require oxygen She said that her breathing is getting better She said that she has been able to bring the phlegm up Denies any chest pain, palpitation, dizziness and fever Review of Systems Review of Systems: All systems reviewed & are unremarkable except as noted in Subjective Physical Exam Physical Exam: General- No acute distress Head- atraumatic Eyes- PERRL, EOMI, ENT- oropharynx clear Neck- supple, no JVD Lungs- coarse BS Heart- no murmur Abdomen- normal bowel sounds, soft, nontender Extremities- no calf tenderness Neuro- alert, oriented x 3; PERRL, EOMI; no facial palsy; no dysarthria Skin- warm & dry Results & Data Results & Data ([facility]) Vital Signs (Past 12 Hours) Vital Signs Temp Pulse Pulse Resp BP Pulse Ox 01/09/21 15:30 36.7 C 77 20 120/71 95 01/09/21 15:05 59 L 01/09/21 14:38 57 L 20 90 01/09/21 11:23 36.7 C 80 21 119/77 93 01/09/21 10:39 83 18 93 01/09/21 07:36 36.7 C 75 20 118/71 91 01/09/21 07:29 57 L 01/09/21 07:15 73 18 93
[2021-01-09] MEDS ORDERED: FUROSEMIDE 40 MG/4 ML VIAL IV SCH (17:00)
[2021-01-09] MEDS: FUROSEMIDE 60 MG in SYRINGE 0 ML IV SCH (17:30)
[2021-01-09] MEDS: ATORVASTATIN 40 MG TAB PO SCH (21:38)
[2021-01-09] MEDS: ZOLPIDEM TARTRATE 5 MG TAB PO PRN (21:38)
[2021-01-09] MEDS: CETIRIZINE HCL 10 MG TABLET PO SCH (21:39)
[2021-01-09] MEDS: AMITRIPTYLINE HCL 50 MG TAB PO SCH (21:39)
[2021-01-09] MEDS: traZODone HCL 100 MG TAB PO SCH (21:40)
[2021-01-10] MEDS: CHECK fentaNYL PATCH PLACEMENT SCH ×4 (00:49→23:06)
[2021-01-10] MEDS: guaiFENesin 200 MG TAB PO SCH ×2 (02:13→10:59)
[2021-01-10] MEDS: PANTOprazole 40 MG TAB PO SCH (06:28)
[2021-01-10 06:35] LABS: Hematocrit (blood only) 38.2 % (37-47); Hemoglobin 12.4 g/dL (12.0-16.0); Mean Corpuscular Hemoglobin 28.9 pg (25-34); Mean Corpuscular Hgb Conc 32.5 g/dL (32-36); Mean Platelet Volume 9.3 fL (7.4-10.4); Platelet Count 446 K/uL (130-400); RDW Coefficient of Variation 15.5 % (11.5-14.5); RDW Standard Deviation 50.5 fL (36.4-46.3); Red Blood Count 4.29 M/uL (4.2-5.4); White Blood Count 7.78 K/uL (4.8-10.8)
[2021-01-10 07:06] LABS: BUN Creatinine Ratio 21.8 (10-20); Calcium 8.8 mg/dl (8.5-10.1); Creatinine Clr Calc Pharmacy 42.9 ml/min; Est GFR (African American) 44.4; Est GFR (Non-African American) 38.3
[2021-01-10 07:11] LABS: C Reactive Protein 6.81 mg/dl (0-0.29); Ferritin 411.8 ng/ml (8-388)
[2021-01-10] MEDS: ALBUT/IPRATROP 3MG/0.5MG NEB 3 ML VIAL NEB SCH ×4 (07:42→19:55)
--- NOTE | 2021-01-10 08:23 | Hospitalist Progress Note ---
Date of Service January 10, 2021 Assessment & Plan (1) Atrial flutter with rapid ventricular response: Present on admission after sending from PCP office for atrial flutter with RVR Received Lopressor 5 mg IV x1 Cardioversion was deferred during recent admission after HUSSEIN demonstrated evidence of left apical thrombus rate control Continue diltiazem, metoprolol and digoxin on MWF Cardiology on board Continue anticoagulant with Eliquis Continue monitor in telemetry Patient continues to be in a flutter, heart rate in the 60s to 90s (2) Acute on chronic diastolic CHF (congestive heart failure): BNP 4000 on admission Repeat CXR showed cardiomegaly with progressively worsened right greater than left asymmetric pulmonary edema. Layering pleural effusions. HUSSEIN 11/16/2020 -EF 55 to 60% Will increased lasix to 60mg IV BID Cardiology on board Monitor BMP while on IV lasix Continue monitor I/O (3) Chronic obstructive pulmonary disease: (4) Chronic respiratory failure with hypoxia, on home oxygen therapy: Wheezing noted on exam, likely secondary to volume overload No change in sputum production or other infectious signs noted Repeat CXR on 01/06 showed cardiomegaly with evidence of congestive failure and pulmonary edema. Continue to hold antibiotics for now Currently on high flow oxygen Pulmonary on board Recommended to put on BiPAP given the diastolic CHF and fluid overload on 08/22 40% Can interchange between high flow and Bipap Continue with aggressive diuresis to keep the patient negative balance Also encourage IS and flutter valve (5) Lab test positive for detection of COVID-19 virus: Patient was initially tested positive on 10/11/2020 She is not showing any signs of active COVID-19 infection She had 2 negative tests in the middle Inflammatory marker trending down with C-rec decreased from 12 to 10 ESR 84 and Ferritin 452 Continue suppl.oxygen and interchange with BIPAP Now on 6L (down from HF) (6) DM type 2 (diabetes mellitus, type 2): -Hgb A1c 8.3 10/2020 -Lantus and NovoLog (7) Chronic pain: -Continue home fentanyl patch and as needed oxycodone (8) CKD (chronic kidney disease), stage III: Creatinine 1.5, at baseline creatinine 1.4 Monitor renal functions while on IV lasix (9) Bipolar disorder: -Stable, continue home medications (10) DVT prophylaxis: -On Eliquis Admission and Anticipated Discharge Date Admission Date: January 04, 2021 Subjective Pt was seen and examined for follow up of SOB Sitting at the edge of the bed continue to require oxygen , currently on 6L She said that her breathing is getting better She said that she has been able to bring the phlegm up Denies any chest pain, palpitation, dizziness and fever Encourage flutter valve and IS Review of Systems Review of Systems: All systems reviewed & are unremarkable except as noted in HPI & below Constitutional: no fever and no chills Respiratory: + cough and + dyspnea (improved) Cardiovascular: no chest pain and no palpitations Gastrointestinal: no abdominal pain, no nausea and no vomiting Physical Exam Physical Exam: General- No acute distress Head- atraumatic Eyes- PERRL, EOMI, ENT- oropharynx clear Neck- supple, no JVD Lungs- coarse BS Heart- no murmur Abdomen- normal bowel sounds, soft, nontender Extremities- no calf tenderness Neuro- alert, oriented x 3; PERRL, EOMI; no facial palsy; no dysarthria Skin- warm & dry Results & Data Results & Data ([facility]) Vital Signs (Past 12 Hours) Vital Signs Temp Pulse Pulse Resp BP Pulse Ox 01/10/21 07:50 36.6 C 77 22 128/79 96 01/10/21 07:44 77 16 96 01/10/21 07:43 77 16 96 01/10/21 07:30 62 01/10/21 06:22 36.8 C 63 20 108/72 95 01/10/21 03:28 75 16 95 01/09/21 23:07 36.5 C 84 18 135/76 93 01/09/21 21:59 83 20 94 01/09/21 21:37 89 130/75 Laboratory Results 01/10/21 01/10/21 01/10/21 Range/Units 07:43 06:17 06:17 WBC (4.8-10.8) K/uL RBC (4.2-5.4) M/uL Hgb (12.0-16.0) g/dL Hct (37-47) % MCV (80-100) fL MCH (25-34) pg MCHC (32-36) g/dL RDW Std Deviation (36.4-46.3) fL RDW Coeff of King (11.5-14.5) % Plt Count (130-400) K/uL MPV (7.4-10.4) fL ESR 94 H (0-30) mm/hr Sodium 140 (136-145) mmol/L Potassium 4.0 (3.5-5.1) mmol/L Chloride 103 (98-107) mmol/L Carbon Dioxide 35 H (21-32) mmol/L Anion Gap 2.0 L (3-11) BUN 31 H (7-18) mg/dl Creatinine 1.44 H (0.6-1.2) mg/dl Est Cr Clr Drug Dosing 42.9 ml/min Est GFR ( Amer) 44.4 Est GFR (Non-Af Amer) 38.3 BUN/Creatinine Ratio 21.8 H (10-20) Glucose 109 H (70-99) mg/dl POC Glucose 106 H (70-99) mg/dl Calcium 8.8 (8.5-10.1) mg/dl Ferritin 411.8 H (8-388) ng/ml C-Reactive Protein 6.81 H (0-0.29) mg/dl 01/10/21 01/09/21 01/09/21 Range/Units 06:17 20:57 16:29 WBC 7.78 (4.8-10.8) K/uL RBC 4.29 (4.2-5.4) M/uL Hgb 12.4 (12.0-16.0) g/dL Hct 38.2 (37-47) % MCV 89.0 (80-100) fL MCH 28.9 (25-34) pg MCHC 32.5 (32-36) g/dL RDW Std Deviation 50.5 H (36.4-46.3) fL RDW Coeff of King 15.5 H (11.5-14.5) % Plt Count 446 H (130-400) K/uL MPV 9.3 (7.4-10.4) fL ESR (0-30) mm/hr Sodium (136-145) mmol/L Potassium (3.5-5.1) mmol/L Chloride (98-107) mmol/L Carbon Dioxide (21-32) mmol/L Anion Gap (3-11) BUN (7-18) mg/dl Creatinine (0.6-1.2) mg/dl Est Cr Clr Drug Dosing ml/min Est GFR ( Amer) Est GFR (Non-Af Amer) BUN/Creatinine Ratio (10-20) Glucose (70-99) mg/dl POC Glucose 103 H 72 (70-99) mg/dl Calcium (8.5-10.1) mg/dl Ferritin (8-388) ng/ml C-Reactive Protein (0-0.29) mg/dl 01/09/21 Range/Units 11:22 WBC (4.8-10.8) K/uL RBC (4.2-5.4) M/uL Hgb (12.0-16.0) g/dL Hct (37-47) % MCV (80-100) fL MCH (25-34) pg MCHC (32-36) g/dL RDW Std Deviation (36.4-46.3) fL RDW Coeff of King (11.5-14.5) % Plt Count (130-400) K/uL MPV (7.4-10.4) fL ESR (0-30) mm/hr Sodium (136-145) mmol/L Potassium (3.5-5.1) mmol/L Chloride (98-107) mmol/L Carbon Dioxide (21-32) mmol/L Anion Gap (3-11) BUN (7-18) mg/dl Creatinine (0.6-1.2) mg/dl Est Cr Clr Drug Dosing ml/min Est GFR ( Amer) Est GFR (Non-Af Amer) BUN/Creatinine Ratio (10-20) Glucose (70-99) mg/dl POC Glucose 196 H (70-99) mg/dl Calcium (8.5-10.1) mg/dl Ferritin (8-388) ng/ml C-Reactive Protein (0-0.29) mg/dl Medications Administered Current Inpatient Medications Acetaminophen (Acetaminophen 325 Mg Tab) 650 mg PO Q4H PRN PRN Reason: Pain or Fever Stop: 02/03/21 19:47 Albuterol (Albut/Ipratrop 3mg/0.5mg Neb 3 Ml Vial) 3 ml NEB QIDR JORGE Stop: 02/03/21 18:59 Last Admin: 01/10/21 07:42 Dose: 3 ml Documented by: Amitriptyline HCl (Amitriptyline Hcl 50 Mg Tab) 50 mg PO [facility] Stop: 02/03/21 20:59 Last Admin: 01/09/21 21:39 Dose: 50 mg Documented by: Apixaban (Apixaban 5 Mg Tablet) 5 mg PO BID [facility] Stop: 02/03/21 20:59 Last Admin: 01/09/21 21:40 Dose: 5 mg Documented by: Atorvastatin Calcium (Atorvastatin 40 Mg Tab) 40 mg PO [facility] Stop: 02/03/21 20:59 Last Admin: 01/09/21 21:38 Dose: 40 mg Documented by: Calcitriol (Calcitriol 0.25 Mcg Capsule) 0.25 mcg PO MoWeFr@0900 [facility] Stop: 02/04/21 08:59 Last Admin: 01/08/21 08:14 Dose: 0.25 mcg Documented by: Cetirizine HCl (Cetirizine Hcl 10 Mg Tablet) 10 mg PO [facility] Stop: 02/03/21 20:59 Last Admin: 01/09/21 21:39 Dose: 10 mg Documented by: Dextrose (Dextrose 50% 50 Ml Syringe) 25 - 50 ml IV UD PRN; Protocol PRN Reason: Hypoglycemia Protocol Stop: 02/03/21 19:47 Digoxin (Digoxin 0.125 Mg Tab) 0.125 mg PO MoWeFr@0900 [facility] Stop: 02/04/21 08:59 Last Admin: 01/08/21 08:14 Dose: 0.125 mg Documented by: Diltiazem HCl (Diltiazem Hcl 240 Mg Capcr) 240 mg PO BID [facility] Stop: 02/03/21 20:59 Last Admin: 01/09/21 21:41 Dose: 240 mg Documented by: Fentanyl (Fentanyl 50 Mcg/Hr Tdsy) 50 mcg TD Q3D@2000 [facility] Stop: 01/18/21 19:59 Last Admin: 01/07/21 21:13 Dose: 50 mcg Documented by: Fluticasone/Vilanterol (Fluticasone/Vilanterol 200/25mcg 14 Puffs/Inhaler) 1 puffs INH DAILY [facility] Stop: 02/04/21 08:59 Last Admin: 01/09/21 09:02 Dose: 1 puffs Documented by: Gabapentin (Gabapentin 800 Mg Tab) 800 mg PO BID [facility] Stop: 02/03/21 20:59 Last Admin: 01/09/21 21:40 Dose: 800 mg Documented by: Glucagon (Glucagon For Inj 1 Mg Vial) 1 mg SQ UD PRN; Protocol PRN Reason: Hypoglycemia Protocol Stop: 02/03/21 19:47 Glucose (Glucose 10 Tabs/Tube) 4 - 8 tabs PO UD PRN; Protocol PRN Reason: Hypoglycemia Protocol Stop: 02/03/21 19:47 Glucose (Glucose 40% Gel 15 Gm Tube) 15 - 30 gm PO UD PRN; Protocol PRN Reason: Hypoglycemia Protocol Stop: 02/03/21 19:47 Guaifenesin (Guaifenesin 200 Mg Tab) 200 mg PO Q6H JORGE Stop: 02/04/21 19:59 Last Admin: 01/10/21 02:13 Dose: 200 mg Documented by: Furosemide 60 mg/ Syringe 6 mls @ 4 mls/min IV BID17 JORGE Stop: 02/08/21 16:59 Last Admin: 01/09/21 17:30 Dose: 4 mls/min Documented by: Insulin Aspart (Insulin Aspart 100 Units/Ml 3 Ml Pen) 0 units SC ACHS JORGE Stop: 02/03/21 20:59 Last Admin: 01/09/21 21:26 Dose: Not Given Documented by: Insulin Glargine (Insulin Glargine Solostar 100 Units/Ml 3 Ml Pen) 5 units SC BID [facility] Stop: 02/08/21 08:59 Last Admin: 01/09/21 21:26 Dose: 5 units Documented by: Methocarbamol (Methocarbamol 750 Mg Tablet) 750 mg PO TID [facility] Stop: 02/03/21 20:59 Last Admin: 01/09/21 21:39 Dose: 750 mg Documented by: Metoprolol Succinate (Metoprolol Succ 50mg Ext Rel Tab) 100 mg PO BID [facility] Stop: 02/03/21 20:59 Last Admin: 01/09/21 21:38 Dose: 100 mg Documented by: Miscellaneous (Remove Nicoderm Patch) 1 ea N/A DAILY@0859 [facility] Stop: 02/04/21 08:58 Last Admin: 01/09/21 09:03 Dose: 1 ea Documented by: Miscellaneous (Fentanyl Patch Remove & Waste) 1 ea N/A Q3D@1959 [facility] Stop: 02/03/21 19:58 Last Admin: 01/07/21 21:12 Dose: 1 ea Documented by: Miscellaneous (Check Fentanyl Patch Placement) 1 ea N/A QS JORGE Stop: 02/04/21 00:00 Last Admin: 01/10/21 00:49 Dose: 1 ea Documented by: Miscellaneous (Carbohydrates For Hypoglycemia ) 15 - 30 gm PO UD PRN PRN Reason: Hypoglycemia Protocol Stop: 02/03/21 19:47 Last Admin: 01/08/21 11:16 Dose: 15 gm Documented by: Multivitamins (Multivitamin Tab) 1 tab PO QAM JORGE Stop: 02/04/21 08:59 Last Admin: 01/09/21 09:04 Dose: 1 tab Documented by: Nicotine (Nicotine 21 Mg/24 Hr Tdsy) 21 mg TD QAM JORGE Stop: 02/03/21 18:29 Last Admin: 01/09/21 09:04 Dose: 21 mg Documented by: Oxycodone HCl (Oxycodone Hcl Ir 5 Mg Tab (Immediate Release)) 10 mg PO Q6H PRN PRN Reason: Pain Stop: 01/18/21 19:47 Last Admin: 01/08/21 21:36 Dose: 10 mg Documented by: Pantoprazole Sodium (Pantoprazole 40 Mg Tab) 40 mg PO DAILYBB JORGE Stop: 02/04/21 06:29 Last Admin: 01/10/21 06:28 Dose: 40 mg Documented by: Potassium Chloride (Potassium Chloride Crtab 20 Meq Tabcr) 40 meq PO DAILY JORGE Stop: 02/04/21 08:59 Last Admin: 01/09/21 09:00 Dose: 40 meq Documented by: Trazodone HCl (Trazodone Hcl 100 Mg Tab) 200 mg PO HS JORGE Stop: 02/03/21 20:59 Last Admin: 01/09/21 21:40 Dose: 200 mg Documented by: Umeclidinium Savanna (Umeclidinium [place] 62.5mcg/Blister 7 Puffs/Inhaler) 1 puffs INH DAILY JORGE Stop: 02/07/21 08:59 Last Admin: 01/09/21 09:01 Dose: 1 puffs Documented by: Venlafaxine HCl (Venlafaxine Hcl Xr 150 Mg Capxr) 150 mg PO QAM JORGE Stop: 02/04/21 08:59 Last Admin: 01/09/21 10:13 Dose: 150 mg Documented by: Venlafaxine HCl (Venlafaxine Hcl Xr 75 Mg Capxr) [facility] [place] Stop: 02/04/21 08:59 Last Admin: 01/09/21 10:13 Dose: 75 mg Documented by: Vitamin D (Cholecalciferol 1,000 Units 25 Mcg Tab) 1,000 units [facility] [place] Stop: 02/04/21 08:59 Last Admin: 01/09/21 09:01 Dose: 1,000 units Documented by: Zolpidem Tartrate (Zolpidem Tartrate 5 Mg Tab) 5 mg PO HS PRN PRN Reason: Sleep Stop: 02/05/21 19:28 Last Admin: 01/09/21 21:38 Dose: 5 mg Documented by:
[2021-01-10] MEDS: INSULIN ASPART 100 UNITS/ML 3 ML PEN SC SCH ×4 (08:39→21:07)
[2021-01-10] MEDS: FLUTICASONE/VILANTEROL 200/25MCG 14 PUFFS/INHALER INH SCH (08:43)
[2021-01-10] MEDS: UMECLIDINIUM BROMIDE 62.5MCG/BLISTER 7 PUFFS/INHALER INH SCH (08:43)
[2021-01-10] MEDS: METHOCARBAMOL 750 MG TABLET PO SCH ×2 (08:45→12:38)
[2021-01-10] MEDS: METOPROLOL SUCC 50MG EXT REL TAB PO SCH ×2 (08:46→21:04)
[2021-01-10] MEDS: POTASSIUM CHLORIDE CRTAB 20 MEQ TABCR PO SCH (08:46)
[2021-01-10] MEDS: NICOTINE 21 MG/24 HR TDSY TD SCH (08:46)
[2021-01-10] MEDS: MULTIVITAMIN TAB PO SCH (08:47)
[2021-01-10] MEDS: VENLAFAXINE HCL XR 75 MG CAPXR PO SCH (08:48)
[2021-01-10] MEDS: VENLAFAXINE HCL XR 150 MG CAPXR PO SCH (08:48)
[2021-01-10 08:49] LABS: Magnesium 1.9 mg/dl (1.8-2.4); Phosphorus 3.5 mg/dl (2.5-4.9)
[2021-01-10] MEDS: dilTIAZem HCL 240 MG CAPCR PO SCH ×2 (08:50→21:05)
[2021-01-10] MEDS: DIGOXIN 0.125 MG TAB PO SCH (08:50)
[2021-01-10] MEDS: APIXABAN 5 MG TABLET PO SCH ×2 (08:51→21:05)
[2021-01-10] MEDS: CHOLECALCIFEROL 1,000 UNITS 25 MCG TAB PO SCH (08:51)
[2021-01-10] MEDS: CALCITRIOL 0.25 MCG CAPSULE PO SCH (08:51)
[2021-01-10] MEDS: FUROSEMIDE 60 MG in SYRINGE 0 ML IV SCH ×3 (08:52→19:35)
[2021-01-10] MEDS: GABAPENTIN 800 MG TAB PO SCH ×2 (08:54→21:05)
[2021-01-10] MEDS: INSULIN GLARGINE SOLOSTAR 100 UNITS/ML 3 ML PEN SC SCH ×2 (09:20→21:06)
[2021-01-10] MEDS: guaiFENesin 600 MG TABCR PO SCH ×2 (10:20→21:05)
[2021-01-10] MEDS: oxyCODONE HCL IR 5 MG TAB (IMMEDIATE RELEASE) PO PRN (20:51)
[2021-01-10] MEDS: traZODone HCL 100 MG TAB PO SCH (21:04)
[2021-01-10] MEDS: ATORVASTATIN 40 MG TAB PO SCH (21:04)
[2021-01-10] MEDS: ZOLPIDEM TARTRATE 5 MG TAB PO PRN (21:04)
[2021-01-10] MEDS: AMITRIPTYLINE HCL 50 MG TAB PO SCH (21:04)
[2021-01-10] MEDS: fentaNYL 50 MCG/HR TDSY TD SCH (21:05)
[2021-01-10] MEDS: CETIRIZINE HCL 10 MG TABLET PO SCH (21:05)
[2021-01-11] MEDS: PANTOprazole 40 MG TAB PO SCH (05:48)
[2021-01-11 06:36] LABS: Hematocrit (blood only) 38.7 % (37-47); Hemoglobin 12.5 g/dL (12.0-16.0); Mean Corpuscular Hemoglobin 28.7 pg (25-34); Mean Corpuscular Hgb Conc 32.3 g/dL (32-36); Mean Corpuscular Volume 88.8 fL (80-100); Mean Platelet Volume 9.6 fL (7.4-10.4); Platelet Count 494 K/uL (130-400); RDW Coefficient of Variation 15.4 % (11.5-14.5); Red Blood Count 4.36 M/uL (4.2-5.4); White Blood Count 8.79 K/uL (4.8-10.8)
[2021-01-11] MEDS: ALBUT/IPRATROP 3MG/0.5MG NEB 3 ML VIAL NEB SCH ×4 (06:50→19:30)
[2021-01-11 07:15] LABS: BUN Creatinine Ratio 24.8 (10-20); Calcium 9.2 mg/dl (8.5-10.1); Creatinine Clr Calc Pharmacy 45.8 ml/min; Est GFR (African American) 48.4; Est GFR (Non-African American) 41.8; Magnesium 1.8 mg/dl (1.8-2.4)
[2021-01-11 07:38] LABS: Phosphorus 4.2 mg/dl (2.5-4.9)
[2021-01-11] MEDS: INSULIN ASPART 100 UNITS/ML 3 ML PEN SC SCH ×4 (07:42→21:16)
[2021-01-11] MEDS: INSULIN GLARGINE SOLOSTAR 100 UNITS/ML 3 ML PEN SC SCH ×2 (07:42→21:15)
--- NOTE | 2021-01-11 08:38 | Hospitalist Progress Note ---
Date of Service January 11, 2021 Assessment & Plan (1) Atrial flutter with rapid ventricular response: Present on admission after sending from PCP office for atrial flutter with RVR Received Lopressor 5 mg IV x1 Cardioversion was deferred during recent admission after HUSSEIN demonstrated evidence of left apical thrombus rate control Continue diltiazem, metoprolol and digoxin on MWF Cardiology on board Continue anticoagulant with Eliquis Continue monitor in telemetry Patient continues to be in a flutter, heart rate in the 60s to 90s (2) Acute on chronic diastolic CHF (congestive heart failure): BNP 4000 on admission Repeat CXR showed cardiomegaly with progressively worsened right greater than left asymmetric pulmonary edema. Layering pleural effusions. HUSSEIN 11/16/2020 -EF 55 to 60% increased lasix to 60mg IV BID Cardiology on board Monitor BMP while on IV lasix Continue monitor I/O Pt seems to be euvolemic, currently on 2L which is her baseline Will transition to home PO lasix (3) Chronic obstructive pulmonary disease: (4) Chronic respiratory failure with hypoxia, on home oxygen therapy: Wheezing noted on exam, likely secondary to volume overload No change in sputum production or other infectious signs noted Repeat CXR on 01/06 showed cardiomegaly with evidence of congestive failure and pulmonary edema. Continue to hold antibiotics for now Currently on high flow oxygen Pulmonary on board Recommended to put on BiPAP given the diastolic CHF and fluid overload on 08/22 40% Can interchange between high flow and Bipap Continued with aggressive diuresis to keep the patient negative balance Now seems euvolemic Also encourage IS and flutter valve (5) Lab test positive for detection of COVID-19 virus: Patient was initially tested positive on 10/11/2020 She is not showing any signs of active COVID-19 infection She had 2 negative tests in the middle Inflammatory marker trending down with C-rec decreased from 12 to 10 ESR 84 and Ferritin 452 Continue suppl.oxygen and interchange with BIPAP Now on 2L (at baseline) (6) DM type 2 (diabetes mellitus, type 2): -Hgb A1c 8.3 10/2020 -Lantus and NovoLog (7) Chronic pain: -Continue home fentanyl patch and as needed oxycodone (8) CKD (chronic kidney disease), stage III: Creatinine 1.5, at baseline creatinine 1.4 Monitor renal functions while on IV lasix (9) Bipolar disorder: -Stable, continue home medications (10) DVT prophylaxis: -On Eliquis Admission and Anticipated Discharge Date Admission Date: January 04, 2021 Subjective Pt was seen and examined for follow up of SOB Laying in bed on 2L of suppl. O2 (at baseline) She said that her breathing is much better Denies any chest pain, palpitation, dizziness and fever Encourage flutter valve and IS Review of Systems Review of Systems: All systems reviewed & are unremarkable except as noted in HPI & below Constitutional: no fever and no chills Respiratory: + cough and + dyspnea (improved) Cardiovascular: no chest pain and no palpitations Gastrointestinal: no abdominal pain, no nausea and no vomiting Physical Exam Physical Exam: General- No acute distress Head- atraumatic Eyes- PERRL, EOMI, ENT- oropharynx clear Neck- supple, no JVD Lungs- + mild crackles, no wheezing Heart- no murmur Abdomen- normal bowel sounds, soft, nontender Extremities- no calf tenderness Neuro- alert, oriented x 3; PERRL, EOMI; no facial palsy; no dysarthria Skin- warm & dry Results & Data Results & Data ([facility]) Vital Signs (Past 12 Hours) Vital Signs Temp Pulse Resp BP BP Pulse Ox 01/11/21 07:00 36.7 C 89 18 124/66 92 01/11/21 06:51 86 18 92 01/11/21 03:00 36.6 C 81 18 120/64 90 01/10/21 23:00 37 C 105 H 18 118/75 90 Laboratory Results 01/11/21 01/11/21 01/11/21 Range/Units 07:17 05:44 05:44 WBC (4.8-10.8) K/uL RBC (4.2-5.4) M/uL Hgb (12.0-16.0) g/dL Hct (37-47) % MCV (80-100) fL MCH (25-34) pg MCHC (32-36) g/dL RDW Std Deviation (36.4-46.3) fL RDW Coeff of King (11.5-14.5) % Plt Count (130-400) K/uL MPV (7.4-10.4) fL Sodium 139 (136-145) mmol/L Potassium 4.0 (3.5-5.1) mmol/L Chloride 101 (98-107) mmol/L Carbon Dioxide 35 H (21-32) mmol/L Anion Gap 3.0 (3-11) BUN 33 H (7-18) mg/dl Creatinine 1.34 H (0.6-1.2) mg/dl Est Cr Clr Drug Dosing 45.8 ml/min Est GFR ( Amer) 48.4 Est GFR (Non-Af Amer) 41.8 BUN/Creatinine Ratio 24.8 H (10-20) Glucose 106 H (70-99) mg/dl POC Glucose 103 H (70-99) mg/dl Calcium 9.2 (8.5-10.1) mg/dl Phosphorus 4.2 (2.5-4.9) mg/dl Magnesium 1.8 (1.8-2.4) mg/dl Procalcitonin < 0.05 (0-0.5) ng/ml 01/11/21 01/10/21 01/10/21 Range/Units 05:44 20:55 16:09 WBC 8.79 (4.8-10.8) K/uL RBC 4.36 (4.2-5.4) M/uL Hgb 12.5 (12.0-16.0) g/dL Hct 38.7 (37-47) % MCV 88.8 (80-100) fL MCH 28.7 (25-34) pg MCHC 32.3 (32-36) g/dL RDW Std Deviation 50.0 H (36.4-46.3) fL RDW Coeff of King 15.4 H (11.5-14.5) % Plt Count 494 H (130-400) K/uL MPV 9.6 (7.4-10.4) fL Sodium (136-145) mmol/L Potassium (3.5-5.1) mmol/L Chloride (98-107) mmol/L Carbon Dioxide (21-32) mmol/L Anion Gap (3-11) BUN (7-18) mg/dl Creatinine (0.6-1.2) mg/dl Est Cr Clr Drug Dosing ml/min Est GFR ( Amer) Est GFR (Non-Af Amer) BUN/Creatinine Ratio (10-20) Glucose (70-99) mg/dl POC Glucose 102 H 120 H (70-99) mg/dl Calcium (8.5-10.1) mg/dl Phosphorus (2.5-4.9) mg/dl Magnesium (1.8-2.4) mg/dl Procalcitonin (0-0.5) ng/ml 01/10/21 01/10/21 01/10/21 Range/Units 11:28 06:18 06:17 WBC (4.8-10.8) K/uL RBC (4.2-5.4) M/uL Hgb (12.0-16.0) g/dL Hct (37-47) % MCV (80-100) fL MCH (25-34) pg MCHC (32-36) g/dL RDW Std Deviation (36.4-46.3) fL RDW Coeff of King (11.5-14.5) % Plt Count (130-400) K/uL MPV (7.4-10.4) fL Sodium (136-145) mmol/L Potassium (3.5-5.1) mmol/L Chloride (98-107) mmol/L Carbon Dioxide (21-32) mmol/L Anion Gap (3-11) BUN (7-18) mg/dl Creatinine (0.6-1.2) mg/dl Est Cr Clr Drug Dosing ml/min Est GFR ( Amer) Est GFR (Non-Af Amer) BUN/Creatinine Ratio (10-20) Glucose (70-99) mg/dl POC Glucose 138 H (70-99) mg/dl Calcium (8.5-10.1) mg/dl Phosphorus 3.5 (2.5-4.9) mg/dl Magnesium 1.9 (1.8-2.4) mg/dl Procalcitonin 0.05 (0-0.5) ng/ml Medications Administered Current Inpatient Medications Acetaminophen (Acetaminophen 325 Mg Tab) 650 mg PO Q4H PRN PRN Reason: Pain or Fever Stop: 02/03/21 19:47 Albuterol (Albut/Ipratrop 3mg/0.5mg Neb 3 Ml Vial) 3 ml NEB QIDR JORGE Stop: 02/03/21 18:59 Last Admin: 01/11/21 06:50 Dose: 3 ml Documented by: Amitriptyline HCl (Amitriptyline Hcl 50 Mg Tab) 50 mg PO HS [facility] Stop: 02/03/21 20:59 Last Admin: 01/10/21 21:04 Dose: 50 mg Documented by: Apixaban (Apixaban 5 Mg Tablet) 5 mg PO BID JORGE Stop: 02/03/21 20:59 Last Admin: 01/10/21 21:05 Dose: 5 mg Documented by: Atorvastatin Calcium (Atorvastatin 40 Mg Tab) 40 mg PO [facility] Stop: 02/03/21 20:59 Last Admin: 01/10/21 21:04 Dose: 40 mg Documented by: Calcitriol (Calcitriol 0.25 Mcg Capsule) 0.25 mcg PO MoWeFr@0900 [facility] Stop: 02/04/21 08:59 Last Admin: 01/10/21 08:51 Dose: 0.25 mcg Documented by: Cetirizine HCl (Cetirizine Hcl 10 Mg Tablet) 10 mg PO [facility] Stop: 02/03/21 20:59 Last Admin: 01/10/21 21:05 Dose: 10 mg Documented by: Dextrose (Dextrose 50% 50 Ml Syringe) 25 - 50 ml IV UD PRN; Protocol PRN Reason: Hypoglycemia Protocol Stop: 02/03/21 19:47 Digoxin (Digoxin 0.125 Mg Tab) 0.125 mg PO MoWeFr@0900 [facility] Stop: 02/04/21 08:59 Last Admin: 01/10/21 08:50 Dose: 0.125 mg Documented by: Diltiazem HCl (Diltiazem Hcl 240 Mg Capcr) 240 mg PO BID [facility] Stop: 02/03/21 20:59 Last Admin: 01/10/21 21:05 Dose: 240 mg Documented by: Fentanyl (Fentanyl 50 Mcg/Hr Tdsy) 50 mcg TD Q3D@2000 [facility] Stop: 01/18/21 19:59 Last Admin: 01/10/21 21:05 Dose: 50 mcg Documented by: Fluticasone/Vilanterol (Fluticasone/Vilanterol 200/25mcg 14 Puffs/Inhaler) 1 puffs INH DAILY JORGE Stop: 02/04/21 08:59 Last Admin: 01/10/21 08:43 Dose: 1 puffs Documented by: Furosemide (Furosemide 80 Mg Tab) 80 mg PO [id number] [facility] Stop: 02/10/21 20:59 Gabapentin (Gabapentin 800 Mg Tab) 800 mg PO BID JORGE Stop: 02/03/21 20:59 Last Admin: 01/10/21 21:05 Dose: 800 mg Documented by: Glucagon (Glucagon For Inj 1 Mg Vial) 1 mg SQ UD PRN; Protocol PRN Reason: Hypoglycemia Protocol Stop: 02/03/21 19:47 Glucose (Glucose 10 Tabs/Tube) 4 - 8 tabs PO UD PRN; Protocol PRN Reason: Hypoglycemia Protocol Stop: 02/03/21 19:47 Glucose (Glucose 40% Gel 15 Gm Tube) 15 - 30 gm PO UD PRN; Protocol PRN Reason: Hypoglycemia Protocol Stop: 02/03/21 19:47 Guaifenesin (Guaifenesin 600 Mg Tabcr) 600 mg PO Q12 JORGE Stop: 02/09/21 09:44 Last Admin: 01/10/21 21:05 Dose: 600 mg Documented by: Furosemide 60 mg/ Syringe 6 mls @ 4 mls/min IV [id number] JORGE Stop: 02/08/21 16:59 Last Admin: 01/10/21 19:35 Dose: 4 mls/min Documented by: Magnesium Sulfate/Dextrose (Magnesium Sulfate / D5w) 1 gm in 100 mls @ 50 mls/hr IV 0900 [facility] Stop: 01/11/21 10:59 Insulin Aspart (Insulin Aspart 100 Units/Ml 3 Ml Pen) 0 units SC ACHS [facility] Stop: 02/03/21 20:59 Last Admin: 01/10/21 21:07 Dose: 1 units Documented by: Insulin Glargine (Insulin Glargine Solostar 100 Units/Ml 3 Ml Pen) 5 units SC BID [facility] Stop: 02/08/21 08:59 Last Admin: 01/10/21 21:06 Dose: 5 units Documented by: Methocarbamol (Methocarbamol 750 Mg Tablet) 750 mg PO TID [facility] Stop: 02/03/21 20:59 Last Admin: 01/10/21 12:38 Dose: 750 mg Documented by: Metoprolol Succinate (Metoprolol Succ 50mg Ext Rel Tab) 100 mg PO BID [facility] Stop: 02/03/21 20:59 Last Admin: 01/10/21 21:04 Dose: 100 mg Documented by: Miscellaneous (Remove Nicoderm Patch) 1 ea N/A DAILY@59 [facility] Stop: 02/04/21 08:58 Last Admin: 01/10/21 08:48 Dose: 1 ea Documented by: Miscellaneous (Fentanyl Patch Remove & Waste) 1 ea N/A Q3D@1959 [facility] Stop: 02/03/21 19:58 Last Admin: 01/10/21 21:05 Dose: 1 ea Documented by: Tegancellaneous (Check Fentanyl Patch Placement) 1 ea N/A QS [facility] Stop: 02/04/21 00:00 Last Admin: 01/10/21 23:06 Dose: 1 ea Documented by: Awais (Carbohydrates For Hypoglycemia ) 15 - 30 gm PO UD PRN PRN Reason: Hypoglycemia Protocol Stop: 02/03/21 19:47 Last Admin: 01/08/21 11:16 Dose: 15 gm Documented by: Multivitamins (Multivitamin Tab) 1 tab PO QAM [facility] Stop: 02/04/21 08:59 Last Admin: 01/10/21 08:47 Dose: 1 tab Documented by: Nicotine (Nicotine 21 Mg/24 Hr Tdsy) 21 mg TD QAM [facility] Stop: 02/03/21 18:29 Last Admin: 01/10/21 08:46 Dose: 21 mg Documented by: Oxycodone HCl (Oxycodone Hcl Ir 5 Mg Tab (Immediate Release)) 10 mg PO Q6H PRN PRN Reason: Pain Stop: 01/18/21 19:47 Last Admin: 01/10/21 20:51 Dose: 10 mg Documented by: Pantoprazole Sodium (Pantoprazole 40 Mg Tab) 40 mg PO DAILYBB [facility] Stop: 02/04/21 06:29 Last Admin: 01/11/21 05:48 Dose: 40 mg Documented by: Potassium Chloride (Potassium Chloride Crtab 20 Meq Tabcr) 40 meq PO DAILY JORGE Stop: 02/04/21 08:59 Last Admin: 01/10/21 08:46 Dose: 40 meq Documented by: Trazodone HCl (Trazodone Hcl 100 Mg Tab) 200 mg PO HS [facility] Stop: 02/03/21 20:59 Last Admin: 01/10/21 21:04 Dose: 200 mg Documented by: Umeclidinium [place] (Umeclidinium [place] 62.5mcg/Blister 7 Puffs/Inhaler) 1 puffs INH DAILY [facility] Stop: 02/07/21 08:59 Last Admin: 01/10/21 08:43 Dose: 1 puffs Documented by: Venlafaxine HCl (Venlafaxine Hcl Xr 150 Mg Capxr) [facility] Stop: 02/04/21 08:59 Last Admin: 01/10/21 08:48 Dose: 150 mg Documented by: Venlafaxine HCl (Venlafaxine Hcl Xr 75 Mg Capxr) [facility] Stop: 02/04/21 08:59 Last Admin: 01/10/21 08:48 Dose: 75 mg Documented by: Vitamin D (Cholecalciferol 1,000 Units 25 Mcg Tab) 1,000 units PO QAM [facility] Stop: 02/04/21 08:59 Last Admin: 01/10/21 08:51 Dose: 1,000 units Documented by: Zolpidem Tartrate (Zolpidem Tartrate 5 Mg Tab) 5 mg PO HS PRN PRN Reason: Sleep Stop: 02/05/21 19:28 Last Admin: 01/10/21 21:04 Dose: 5 mg Documented by:
[2021-01-11] MEDS: CHECK fentaNYL PATCH PLACEMENT SCH ×2 (08:39→15:57)
[2021-01-11] MEDS: UMECLIDINIUM BROMIDE 62.5MCG/BLISTER 7 PUFFS/INHALER INH SCH (08:39)
[2021-01-11] MEDS: VENLAFAXINE HCL XR 150 MG CAPXR PO SCH (08:41)
[2021-01-11] MEDS: METHOCARBAMOL 750 MG TABLET PO SCH ×3 (08:41→21:16)
[2021-01-11] MEDS: METOPROLOL SUCC 50MG EXT REL TAB PO SCH ×2 (08:42→21:16)
[2021-01-11] MEDS: dilTIAZem HCL 240 MG CAPCR PO SCH ×2 (08:42→21:12)
[2021-01-11] MEDS: GABAPENTIN 800 MG TAB PO SCH ×2 (08:42→21:13)
[2021-01-11] MEDS: guaiFENesin 600 MG TABCR PO SCH ×2 (08:43→21:14)
[2021-01-11] MEDS: MULTIVITAMIN TAB PO SCH (08:43)
[2021-01-11] MEDS: APIXABAN 5 MG TABLET PO SCH ×2 (08:43→21:12)
[2021-01-11] MEDS: FLUTICASONE/VILANTEROL 200/25MCG 14 PUFFS/INHALER INH SCH (08:44)
[2021-01-11] MEDS: CHOLECALCIFEROL 1,000 UNITS 25 MCG TAB PO SCH (08:44)
[2021-01-11] MEDS: POTASSIUM CHLORIDE CRTAB 20 MEQ TABCR PO SCH (08:44)
[2021-01-11] MEDS: NICOTINE 21 MG/24 HR TDSY TD SCH (08:45)
[2021-01-11] MEDS: FUROSEMIDE 60 MG in SYRINGE 0 ML IV SCH (08:45)
[2021-01-11] MEDS: VENLAFAXINE HCL XR 75 MG CAPXR PO SCH (08:45)
[2021-01-11] MEDS ORDERED: FUROSEMIDE 40 MG/4 ML VIAL IV ONE (09:00)
[2021-01-11] MEDS ORDERED: MAGNESIUM SULFATE / D5W 1 GM/100 ML BAG IV ONE (09:00)
[2021-01-11] MEDS ORDERED: ONDANSETRON INJ 2 MG/ML 2 ML VIAL IV PRN (10:32)
[2021-01-11] MEDS: FUROSEMIDE 80 MG TAB PO SCH (18:02)
[2021-01-11] MEDS: ZOLPIDEM TARTRATE 5 MG TAB PO PRN (21:11)
[2021-01-11] MEDS: CETIRIZINE HCL 10 MG TABLET PO SCH (21:12)
[2021-01-11] MEDS: AMITRIPTYLINE HCL 50 MG TAB PO SCH (21:12)
[2021-01-11] MEDS: ATORVASTATIN 40 MG TAB PO SCH (21:13)
[2021-01-11] MEDS: traZODone HCL 100 MG TAB PO SCH (21:14)
[2021-01-12] MEDS: CHECK fentaNYL PATCH PLACEMENT SCH ×4 (00:31→23:09)
[2021-01-12 06:05] LABS: Hematocrit (blood only) 39.1 % (37-47); Hemoglobin 12.8 g/dL (12.0-16.0); Mean Corpuscular Hemoglobin 29.2 pg (25-34); Mean Corpuscular Hgb Conc 32.7 g/dL (32-36); Mean Corpuscular Volume 89.1 fL (80-100); Mean Platelet Volume 9.8 fL (7.4-10.4); Platelet Count 512 K/uL (130-400); RDW Coefficient of Variation 15.5 % (11.5-14.5); RDW Standard Deviation 50.1 fL (36.4-46.3); Red Blood Count 4.39 M/uL (4.2-5.4); White Blood Count 12.38 K/uL (4.8-10.8)
[2021-01-12 06:29] LABS: BUN Creatinine Ratio 21.5 (10-20); Calcium 9.1 mg/dl (8.5-10.1); Creatinine Clr Calc Pharmacy 38.3 ml/min; Est GFR (African American) 39.1; Est GFR (Non-African American) 33.7; Magnesium 1.8 mg/dl (1.8-2.4); Phosphorus 4.4 mg/dl (2.5-4.9); Potassium 4.3 mmol/L (3.5-5.1)
[2021-01-12] MEDS: PANTOprazole 40 MG TAB PO SCH (07:12)
[2021-01-12] MEDS: ALBUT/IPRATROP 3MG/0.5MG NEB 3 ML VIAL NEB SCH ×4 (07:37→19:55)
--- NOTE | 2021-01-12 08:11 | Hospitalist Progress Note ---
Date of Service January 12, 2021 Assessment & Plan (1) Atrial flutter with rapid ventricular response: Present on admission after sending from PCP office for atrial flutter with RVR Received Lopressor 5 mg IV x1 Cardioversion was deferred during recent admission after HUSSEIN demonstrated evidence of left apical thrombus rate control Continue diltiazem, metoprolol and digoxin on MWF Cardiology on board Continue anticoagulant with Eliquis Continue monitor in telemetry Patient continues to be in a flutter, heart rate in the 60-90s (2) Acute on chronic diastolic CHF (congestive heart failure): BNP 4000 on admission Repeat CXR showed cardiomegaly with progressively worsened right greater than left asymmetric pulmonary edema. Layering pleural effusions. HUSSEIN 11/16/2020 -EF 55 to 60% increased lasix to 60mg IV BID Cardiology on board Monitor BMP while on IV lasix Continue monitor I/O Pt seems to be euvolemic, currently on 2L which is her baseline transitioned to home PO lasix (3) Chronic obstructive pulmonary disease: (4) Chronic respiratory failure with hypoxia, on home oxygen therapy: Wheezing noted on exam, likely secondary to volume overload No change in sputum production or other infectious signs noted Repeat CXR on 01/06 showed cardiomegaly with evidence of congestive failure and pulmonary edema. Held antibiotics on high flow oxygen Pulmonary on board Recommended to put on BiPAP given the diastolic CHF and fluid overload on 08/22 40% Can interchange between high flow and Bipap Continued with aggressive diuresis to keep the patient negative balance Now seems euvolemic - transitioned to PO lasix Also encourage IS and flutter valve Currently back to 2-3L O2 but not feeling well will obtain CT chest pt reports phlegm, start doxy 100 bid Discussed w/ pulmonary- will see pt tmrw, may try decadron 6 mg daily (5) Lab test positive for detection of COVID-19 virus: Patient was initially tested positive on 10/11/2020 She is not showing any signs of active COVID-19 infection She had 2 negative tests in the middle Inflammatory marker trending down with C-rec decreased from 12 to 10 ESR 84 and Ferritin 452 Continue suppl.oxygen and interchange with BIPAP Now on 2L (at baseline) (6) DM type 2 (diabetes mellitus, type 2): -Hgb A1c 8.3 10/2020 -Lantus and NovoLog (7) Chronic pain: -Continue home fentanyl patch and as needed oxycodone (8) CKD (chronic kidney disease), stage III: Creatinine 1.5, at baseline creatinine 1.4 Monitor renal functions while on IV lasix (9) Bipolar disorder: -Stable, continue home medications (10) DVT prophylaxis: -On Eliquis Admission and Anticipated Discharge Date Admission Date: January 04, 2021 Subjective Pt was seen and examined for follow up of SOB Laying in bed on 2L of suppl. O2 (at baseline) She said that her breathing is better however feels weak today and not quite ready to go home Says she has been coughing up some yellow phlegm as well Denies any chest pain, palpitation, dizziness and fever Encourage flutter valve and IS Will obtain CT chest, and will discuss further pulmonary medicine Review of Systems Review of Systems: All systems reviewed & are unremarkable except as noted in HPI & below Constitutional: no fever and no chills Respiratory: + cough and + dyspnea (improved) Cardiovascular: no chest pain and no palpitations Gastrointestinal: no abdominal pain, no nausea and no vomiting Physical Exam Physical Exam: General- No acute distress Head- atraumatic Eyes- PERRL, EOMI, ENT- oropharynx clear Neck- supple, no JVD Lungs- + mild crackles and rhonchi, no wheezing Heart- no murmur Abdomen- normal bowel sounds, soft, nontender Extremities- no calf tenderness Neuro- alert, oriented x 3; PERRL, EOMI; no facial palsy; no dysarthria Skin- warm & dry Results & Data Results & Data ([facility]) Vital Signs (Past 12 Hours) Vital Signs Temp Pulse Pulse Resp BP BP Pulse Ox 01/12/21 07:38 90 20 90 01/12/21 07:06 36.8 C 79 20 109/45 L 90 01/12/21 05:45 80 110/71 90 01/12/21 00:35 98 H 116/76 88 L 01/11/21 23:14 94 H Laboratory Results 01/12/21 01/12/21 01/12/21 Range/Units 07:44 05:27 05:27 WBC 12.38 H (4.8-10.8) K/uL RBC 4.39 (4.2-5.4) M/uL Hgb 12.8 (12.0-16.0) g/dL Hct 39.1 (37-47) % MCV 89.1 (80-100) fL MCH 29.2 (25-34) pg MCHC 32.7 (32-36) g/dL RDW Std Deviation 50.1 H (36.4-46.3) fL RDW Coeff of King 15.5 H (11.5-14.5) % Plt Count 512 H (130-400) K/uL MPV 9.8 (7.4-10.4) fL Sodium 138 (136-145) mmol/L Potassium 4.3 (3.5-5.1) mmol/L Chloride 101 (98-107) mmol/L Carbon Dioxide 33 H (21-32) mmol/L Anion Gap 4.0 (3-11) BUN 34 H (7-18) mg/dl Creatinine 1.60 H (0.6-1.2) mg/dl Est Cr Clr Drug Dosing 38.3 ml/min Est GFR ( Amer) 39.1 Est GFR (Non-Af Amer) 33.7 BUN/Creatinine Ratio 21.5 H (10-20) Glucose 138 H (70-99) mg/dl POC Glucose 127 H (70-99) mg/dl Calcium 9.1 (8.5-10.1) mg/dl Phosphorus 4.4 (2.5-4.9) mg/dl Magnesium 1.8 (1.8-2.4) mg/dl 01/11/21 01/11/21 01/11/21 Range/Units 21:06 16:15 11:41 WBC (4.8-10.8) K/uL RBC (4.2-5.4) M/uL Hgb (12.0-16.0) g/dL Hct (37-47) % MCV (80-100) fL MCH (25-34) pg MCHC (32-36) g/dL RDW Std Deviation (36.4-46.3) fL RDW Coeff of King (11.5-14.5) % Plt Count (130-400) K/uL MPV (7.4-10.4) fL Sodium (136-145) mmol/L Potassium (3.5-5.1) mmol/L Chloride (98-107) mmol/L Carbon Dioxide (21-32) mmol/L Anion Gap (3-11) BUN (7-18) mg/dl Creatinine (0.6-1.2) mg/dl Est Cr Clr Drug Dosing ml/min Est GFR ( Amer) Est GFR (Non-Af Amer) BUN/Creatinine Ratio (10-20) Glucose (70-99) mg/dl POC Glucose 129 H 128 H 176 H (70-99) mg/dl Calcium (8.5-10.1) mg/dl Phosphorus (2.5-4.9) mg/dl Magnesium (1.8-2.4) mg/dl Medications Administered Current Inpatient Medications Acetaminophen (Acetaminophen 325 Mg Tab) 650 mg PO Q4H PRN PRN Reason: Pain or Fever Stop: 02/03/21 19:47 Albuterol (Albut/Ipratrop 3mg/0.5mg Neb 3 Ml Vial) 3 ml NEB QIDR [facility] Stop: 02/03/21 18:59 Last Admin: 01/12/21 07:37 Dose: 3 ml Documented by: Amitriptyline HCl (Amitriptyline Hcl 50 Mg Tab) 50 mg PO [facility] Stop: 02/03/21 20:59 Last Admin: 01/11/21 21:12 Dose: 50 mg Documented by: Apixaban (Apixaban 5 Mg Tablet) 5 mg PO BID [facility] Stop: 02/03/21 20:59 Last Admin: 01/11/21 21:12 Dose: 5 mg Documented by: Atorvastatin Calcium (Atorvastatin 40 Mg Tab) 40 mg PO [facility] Stop: 02/03/21 20:59 Last Admin: 01/11/21 21:13 Dose: 40 mg Documented by: Calcitriol (Calcitriol 0.25 Mcg Capsule) 0.25 mcg PO MoWeFr@0900 [facility] Stop: 02/04/21 08:59 Last Admin: 01/10/21 08:51 Dose: 0.25 mcg Documented by: Cetirizine HCl (Cetirizine Hcl 10 Mg Tablet) 10 mg PO [facility] Stop: 02/03/21 20:59 Last Admin: 01/11/21 21:12 Dose: 10 mg Documented by: Dextrose (Dextrose 50% 50 Ml Syringe) 25 - 50 ml IV UD PRN; Protocol PRN Reason: Hypoglycemia Protocol Stop: 02/03/21 19:47 Digoxin (Digoxin 0.125 Mg Tab) 0.125 mg PO MoWeFr@0900 [facility] Stop: 02/04/21 08:59 Last Admin: 01/10/21 08:50 Dose: 0.125 mg Documented by: Diltiazem HCl (Diltiazem Hcl 240 Mg Capcr) 240 mg PO BID [facility] Stop: 02/03/21 20:59 Last Admin: 01/11/21 21:12 Dose: 240 mg Documented by: Fentanyl (Fentanyl 50 Mcg/Hr Tdsy) 50 mcg TD Q3D@2000 [facility] Stop: 01/18/21 19:59 Last Admin: 01/10/21 21:05 Dose: 50 mcg Documented by: Fluticasone/Vilanterol (Fluticasone/Vilanterol 200/25mcg 14 Puffs/Inhaler) 1 puffs INH DAILY [facility] Stop: 02/04/21 08:59 Last Admin: 01/11/21 08:44 Dose: 1 puffs Documented by: Furosemide (Furosemide 80 Mg Tab) 80 mg PO BID17 JORGE Stop: 02/10/21 16:59 Last Admin: 01/11/21 18:02 Dose: 80 mg Documented by: Gabapentin (Gabapentin 800 Mg Tab) 800 mg PO BID [facility] Stop: 02/03/21 20:59 Last Admin: 01/11/21 21:13 Dose: 800 mg Documented by: Glucagon (Glucagon For Inj 1 Mg Vial) 1 mg SQ UD PRN; Protocol PRN Reason: Hypoglycemia Protocol Stop: 02/03/21 19:47 Glucose (Glucose 10 Tabs/Tube) 4 - 8 tabs PO UD PRN; Protocol PRN Reason: Hypoglycemia Protocol Stop: 02/03/21 19:47 Glucose (Glucose 40% Gel 15 Gm Tube) 15 - 30 gm PO UD PRN; Protocol PRN Reason: Hypoglycemia Protocol Stop: 02/03/21 19:47 Guaifenesin (Guaifenesin 600 Mg Tabcr) 600 mg PO Q12 [facility] Stop: 02/09/21 09:44 Last Admin: 01/11/21 21:14 Dose: 600 mg Documented by: Insulin Aspart (Insulin Aspart 100 Units/Ml 3 Ml Pen) 0 units SC ACHS [facility] Stop: 02/03/21 20:59 Last Admin: 01/11/21 21:16 Dose: 2 units Documented by: Insulin Glargine (Insulin Glargine Solostar 100 Units/Ml 3 Ml Pen) 5 units SC BID [facility] Stop: 02/08/21 08:59 Last Admin: 01/11/21 21:15 Dose: 5 units Documented by: Methocarbamol (Methocarbamol 750 Mg Tablet) 750 mg PO TID [facility] Stop: 02/03/21 20:59 Last Admin: 01/11/21 21:16 Dose: 750 mg Documented by: Metoprolol Succinate (Metoprolol Succ 50mg Ext Rel Tab) 100 mg PO BID [facility] Stop: 02/03/21 20:59 Last Admin: 01/11/21 21:16 Dose: 100 mg Documented by: Miscellaneous (Remove Nicoderm Patch) 1 ea N/A DAILY@0859 [facility] Stop: 02/04/21 08:58 Last Admin: 01/11/21 08:38 Dose: 1 ea Documented by: Tegancellaneous (Fentanyl Patch Remove & Waste) 1 ea N/A Q3D@1959 [facility] Stop: 02/03/21 19:58 Last Admin: 01/10/21 21:05 Dose: 1 ea Documented by: Tegancellaneous (Check Fentanyl Patch Placement) 1 ea N/A QS [facility] Stop: 02/04/21 00:00 Last Admin: 01/12/21 00:31 Dose: 1 ea Documented by: Tegancellaneous (Carbohydrates For Hypoglycemia ) 15 - 30 gm PO UD PRN PRN Reason: Hypoglycemia Protocol Stop: 02/03/21 19:47 Last Admin: 01/08/21 11:16 Dose: 15 gm Documented by: Multivitamins (Multivitamin Tab) 1 tab PO QAM [facility] Stop: 02/04/21 08:59 Last Admin: 01/11/21 08:43 Dose: 1 tab Documented by: Nicotine (Nicotine 21 Mg/24 Hr Tdsy) 21 mg TD QAM [facility] Stop: 02/03/21 18:29 Last Admin: 01/11/21 08:45 Dose: 21 mg Documented by: Ondansetron HCl (Ondansetron Inj 2 Mg/Ml 2 Ml Vial) 2 mg IV Q4H PRN PRN Reason: Nausea Stop: 02/10/21 10:31 Last Admin: 01/11/21 12:00 Dose: 2 mg Documented by: Oxycodone HCl (Oxycodone Hcl Ir 5 Mg Tab (Immediate Release)) 10 mg PO Q6H PRN PRN Reason: Pain Stop: 01/18/21 19:47 Last Admin: 01/10/21 20:51 Dose: 10 mg Documented by: Pantoprazole Sodium (Pantoprazole 40 Mg Tab) 40 mg PO DAILYBB JORGE Stop: 02/04/21 06:29 Last Admin: 01/12/21 07:12 Dose: 40 mg Documented by: Potassium Chloride (Potassium Chloride Crtab 20 Meq Tabcr) 40 meq PO DAILY [facility] Stop: 02/04/21 08:59 Last Admin: 01/11/21 08:44 Dose: 40 meq Documented by: Trazodone HCl (Trazodone Hcl 100 Mg Tab) 200 mg PO HS JORGE Stop: 02/03/21 20:59 Last Admin: 01/11/21 21:14 Dose: 200 mg Documented by: Umeclidinium [place] (Umeclidinium [place] 62.5mcg/Blister 7 Puffs/Inhaler) 1 puffs INH DAILY [facility] Stop: 02/07/21 08:59 Last Admin: 01/11/21 08:39 Dose: 1 puffs Documented by: Venlafaxine HCl (Venlafaxine Hcl Xr 150 Mg Capxr) 150 mg PO QAM [facility] Stop: 02/04/21 08:59 Last Admin: 01/11/21 08:41 Dose: 150 mg Documented by: Venlafaxine HCl (Venlafaxine Hcl Xr 75 Mg Capxr) 75 mg PO QAM [facility] Stop: 02/04/21 08:59 Last Admin: 01/11/21 08:45 Dose: 75 mg Documented by: Vitamin D (Cholecalciferol 1,000 Units 25 Mcg Tab) 1,000 units PO QAM [facility] Stop: 02/04/21 08:59 Last Admin: 01/11/21 08:44 Dose: 1,000 units Documented by: Zolpidem Tartrate (Zolpidem Tartrate 5 Mg Tab) 5 mg PO HS PRN PRN Reason: Sleep Stop: 02/05/21 19:28 Last Admin: 01/11/21 21:11 Dose: 5 mg Documented by:
[2021-01-12] MEDS ORDERED: MAGNESIUM SULFATE / D5W 1 GM/100 ML BAG IV ONE (08:12)
[2021-01-12] MEDS: INSULIN ASPART 100 UNITS/ML 3 ML PEN SC SCH ×4 (08:33→20:37)
[2021-01-12] MEDS: NICOTINE 21 MG/24 HR TDSY TD SCH (08:37)
[2021-01-12] MEDS: CALCITRIOL 0.25 MCG CAPSULE PO SCH (08:40)
[2021-01-12] MEDS: DIGOXIN 0.125 MG TAB PO SCH (08:40)
[2021-01-12] MEDS: GABAPENTIN 800 MG TAB PO SCH ×2 (08:40→21:18)
[2021-01-12] MEDS: APIXABAN 5 MG TABLET PO SCH ×2 (08:40→21:17)
[2021-01-12] MEDS: POTASSIUM CHLORIDE CRTAB 20 MEQ TABCR PO SCH (08:40)
[2021-01-12] MEDS: VENLAFAXINE HCL XR 150 MG CAPXR PO SCH (08:40)
[2021-01-12] MEDS: guaiFENesin 600 MG TABCR PO SCH ×2 (08:40→21:18)
[2021-01-12] MEDS: VENLAFAXINE HCL XR 75 MG CAPXR PO SCH (08:41)
[2021-01-12] MEDS: METHOCARBAMOL 750 MG TABLET PO SCH ×3 (08:41→21:18)
[2021-01-12] MEDS: FUROSEMIDE 80 MG TAB PO SCH ×2 (08:42→17:09)
[2021-01-12] MEDS: dilTIAZem HCL 240 MG CAPCR PO SCH ×2 (08:42→21:17)
[2021-01-12] MEDS: MULTIVITAMIN TAB PO SCH (08:42)
[2021-01-12] MEDS: METOPROLOL SUCC 50MG EXT REL TAB PO SCH ×2 (08:42→21:18)
[2021-01-12] MEDS: CHOLECALCIFEROL 1,000 UNITS 25 MCG TAB PO SCH (08:43)
[2021-01-12] MEDS: INSULIN GLARGINE SOLOSTAR 100 UNITS/ML 3 ML PEN SC SCH ×2 (08:43→21:18)
[2021-01-12] MEDS: UMECLIDINIUM BROMIDE 62.5MCG/BLISTER 7 PUFFS/INHALER INH SCH (08:45)
[2021-01-12] MEDS: FLUTICASONE/VILANTEROL 200/25MCG 14 PUFFS/INHALER INH SCH (08:46)
--- NOTE | 2021-01-12 11:14 | XRay Report ---
XR chest 1V portable CLINICAL HISTORY: Hypoxia. Abnormal chest x-ray. Follow-up study. COMPARISON STUDY: 01/09/2021 FINDINGS: The heart remains enlarged. There is a valvular prosthesis. There is prominence of the main pulmonary artery segment. Pulmonary to hypertension is suspected. There are improving bilateral pulm onary airspace opacities. A subpulmonic left pleural effusion is suspected.[There is a persistent 11 mm right midlung zone nodule. IMPRESSION: Cardiomegaly with persistent but improving bilateral pulmonary airspace opacities ACT 112: Negative or not required by law. Electronically signed by: Cesar Lopez M.D. 01/12/2021 11:12 AM
[2021-01-12] MEDS ORDERED: FUROSEMIDE 20 MG in SYRINGE 0 ML IV ONE (11:42)
[2021-01-12] MEDS ORDERED: FUROSEMIDE 40 MG/4 ML VIAL IV STA (11:45)
--- NOTE | 2021-01-12 18:18 | CT Scan Report ---
CT chest diagnostic wo con CT DOSE: 557.44 mGycm CLINICAL HISTORY: 65 years-old Female with follow up / acute on chronic resp. fail. COVID Positive. Acute on chronic respiratory failure TECHNIQUE: Multiaxial CT images of the chest were performed without contrast. A dose lowering techni que was utilized adhering to the principles of ALARA. COMPARISON: Chest radiograph of same day, chest CT 11/10/2020, 09/29/2010 FINDINGS: Diffusely heterogeneous thyroid with unchanged left lobe 12 mm nodule. Mediastinal and abdoulaye r adenopathy redemonstrated. 1.4 cm AP window lymph node is unchanged 1.7 cm pretracheal lymph node o n image 98 is stable. No new adenopathy. Moderate cardiomegaly. Prosthetic mitral valve. Marked dilat ion of the pulmonary artery. Moderate calcified plaque the thoracic aorta. Trace pleural effusions. E mphysema. Intralobular septal thickening redemonstrated. Similar-appearing interstitial opacities of the right middle lobe and anterior segment right upper lobe suggestive of fibrosis. Patchy nodular co nsolidative opacities of the lingula and left lower lobe are new from comparison. Mild dependent subs egmental bibasilar atelectasis. Central airways appear patent. Unchanged 7 mm pulmonary nodule of the right upper lobe, image 146. Stable 9 mm solid nodule of the lingula, image 138. Pneumoperitoneum. Unchanged 3 cm left adrenal adenoma. Unremarkable soft tissues. No acute fracture. IMPRESSION: 1. Cardiomegaly with pulmonary artery hypertension. 2. Mild pulmonary edema with trace pleural effusions. 3. Nodular consolidative and groundglass opacities of the left lung base are compatible with an infec tious or inflammatory pneumonitis. 4. Unchanged mediastinal and hilar adenopathy. 5. Additional findings as above. ACT 112: Negative or not required by law. Electronically signed by: Ye Alva M.D. 01/12/2021 6:17 PM
[2021-01-12] MEDS: AMITRIPTYLINE HCL 50 MG TAB PO SCH (21:17)
[2021-01-12] MEDS: CETIRIZINE HCL 10 MG TABLET PO SCH (21:17)
[2021-01-12] MEDS: ATORVASTATIN 40 MG TAB PO SCH (21:17)
[2021-01-12] MEDS: traZODone HCL 100 MG TAB PO SCH (21:18)
[2021-01-12] MEDS: DOXYCYCLINE HYCLATE 100 MG CAP PO SCH (21:18)
[2021-01-12] MEDS: ZOLPIDEM TARTRATE 5 MG TAB PO PRN (21:21)
--- NOTE | 2021-01-13 06:40 | Hospitalist Progress Note ---
Date of Service January 13, 2021 Assessment & Plan (1) Atrial flutter with rapid ventricular response: Present on admission after sending from PCP office for atrial flutter with RVR Received Lopressor 5 mg IV x1 Cardioversion was deferred during recent admission after HUSSEIN demonstrated evidence of left apical thrombus rate control Continue diltiazem, metoprolol and digoxin on MWF Cardiology on board Continue anticoagulant with Eliquis Continue monitor in telemetry Patient continues to be in a flutter, heart rate in the 60-90s (2) Acute on chronic diastolic CHF (congestive heart failure): BNP 4000 on admission Repeat CXR showed cardiomegaly with progressively worsened right greater than left asymmetric pulmonary edema. Layering pleural effusions. HUSSEIN 11/16/2020 -EF 55 to 60% increased lasix to 60mg IV BID Cardiology on board Monitor BMP while on IV lasix Continue monitor I/O Pt seems to be euvolemic, currently on 2L which is her baseline transitioned to home PO lasix (3) Chronic obstructive pulmonary disease: (4) Chronic respiratory failure with hypoxia, on home oxygen therapy: Wheezing noted on exam, likely secondary to volume overload No change in sputum production or other infectious signs noted Repeat CXR on 01/06 showed cardiomegaly with evidence of congestive failure and pulmonary edema. Held antibiotics on high flow oxygen Pulmonary on board Recommended to put on BiPAP given the diastolic CHF and fluid overload on 08/22 40% Can interchange between high flow and Bipap Continued with aggressive diuresis to keep the patient negative balance Now seems euvolemic - transitioned to PO lasix Also encourage IS and flutter valve Currently back to 2L O2 feeling better Reports having phlegm Received Decadron and doxy CT chest obtained Discussed w/ pulmonary - for discharge, she should follow-up with pulmonary medicine, Findings are suggestive of emphysema and possible interstitial lung disease. PFTs recommended as an outpatient. Interstitial lung disease work-up can be considered as an outpatient. Mild inflammatory changes seen possibly related to COVID-19. (5) Lab test positive for detection of COVID-19 virus: Patient was initially tested positive on 10/11/2020 She is not showing any signs of active COVID-19 infection She had 2 negative tests in the middle Inflammatory marker trending down with C-rec decreased from 12 to 10 ESR 84 and Ferritin 452 Continue suppl.oxygen and interchange with BIPAP Now on 2L (at baseline) (6) DM type 2 (diabetes mellitus, type 2): -Hgb A1c 8.3 10/2020 -Lantus and NovoLog (7) Chronic pain: -Continue home fentanyl patch and as needed oxycodone (8) CKD (chronic kidney disease), stage III: Creatinine 1.5, at baseline creatinine 1.4 Monitor renal functions while on IV lasix (9) Bipolar disorder: -Stable, continue home medications (10) DVT prophylaxis: -On Eliquis Admission and Anticipated Discharge Date Admission Date: January 04, 2021 Subjective Pt was seen and examined for follow up of SOB Laying in bed on 2L of suppl. O2 (at baseline) She said that her breathing is better and feels that she could be okay to go home tomorrow Pulmonary medicine consulted as well She was given prednisone this morning, and rosamaria Says she has been coughing up some yellow phlegm as well Denies any chest pain, palpitation, dizziness and fever Encourage flutter valve and IS Review of Systems Review of Systems: All systems reviewed & are unremarkable except as noted in HPI & below Constitutional: no fever and no chills Respiratory: + cough and + dyspnea (improved) Cardiovascular: no chest pain and no palpitations Gastrointestinal: no abdominal pain, no nausea and no vomiting Physical Exam Physical Exam: General- No acute distress Head- atraumatic Eyes- PERRL, EOMI, ENT- oropharynx clear Neck- supple, no JVD Lungs- + mild rhonchi, no wheezing Heart- no murmur Abdomen- normal bowel sounds, soft, nontender Extremities- no calf tenderness Neuro- alert, oriented x 3; PERRL, EOMI; no facial palsy; no dysarthria Skin- warm & dry Results & Data Results & Data ([facility]) Vital Signs (Past 12 Hours) Vital Signs Temp Pulse Resp BP Pulse Ox 01/13/21 03:44 36.4 C L 54 L 18 111/45 L 93 01/12/21 23:01 36.5 C 109 H 17 111/70 94 01/12/21 19:57 98 H 20 95 01/12/21 19:02 36.7 C 91 H 17 137/78 93 Medications Administered Current Inpatient Medications Acetaminophen (Acetaminophen 325 Mg Tab) 650 mg PO Q4H PRN PRN Reason: Pain or Fever Stop: 02/03/21 19:47 Albuterol (Albut/Ipratrop 3mg/0.5mg Neb 3 Ml Vial) 3 ml NEB QIDR [facility] Stop: 02/03/21 18:59 Last Admin: 01/12/21 19:55 Dose: 3 ml Documented by: Amitriptyline HCl (Amitriptyline Hcl 50 Mg Tab) 50 mg PO [facility] Stop: 02/03/21 20:59 Last Admin: 01/12/21 21:17 Dose: 50 mg Documented by: Apixaban (Apixaban 5 Mg Tablet) 5 mg PO BID [facility] Stop: 02/03/21 20:59 Last Admin: 01/12/21 21:17 Dose: 5 mg Documented by: Atorvastatin Calcium (Atorvastatin 40 Mg Tab) 40 mg PO [facility] Stop: 02/03/21 20:59 Last Admin: 01/12/21 21:17 Dose: 40 mg Documented by: Calcitriol (Calcitriol 0.25 Mcg Capsule) 0.25 mcg PO MoWeFr@0900 [facility] Stop: 02/04/21 08:59 Last Admin: 01/12/21 08:40 Dose: 0.25 mcg Documented by: Cetirizine HCl (Cetirizine Hcl 10 Mg Tablet) 10 mg PO [facility] Stop: 02/03/21 20:59 Last Admin: 01/12/21 21:17 Dose: 10 mg Documented by: Dextrose (Dextrose 50% 50 Ml Syringe) 25 - 50 ml IV UD PRN; Protocol PRN Reason: Hypoglycemia Protocol Stop: 02/03/21 19:47 Digoxin (Digoxin 0.125 Mg Tab) 0.125 mg PO MoWeFr@0900 [facility] Stop: 02/04/21 08:59 Last Admin: 01/12/21 08:40 Dose: 0.125 mg Documented by: Diltiazem HCl (Diltiazem Hcl 240 Mg Capcr) 240 mg PO BID [facility] Stop: 02/03/21 20:59 Last Admin: 01/12/21 21:17 Dose: 240 mg Documented by: Fentanyl (Fentanyl 50 Mcg/Hr Tdsy) 50 mcg TD Q3D@2000 [facility] Stop: 01/18/21 19:59 Last Admin: 01/10/21 21:05 Dose: 50 mcg Documented by: Fluticasone/Vilanterol (Fluticasone/Vilanterol 200/25mcg 14 Puffs/Inhaler) 1 puffs INH DAILY [facility] Stop: 02/04/21 08:59 Last Admin: 01/12/21 08:46 Dose: 1 puffs Documented by: Furosemide (Furosemide 80 Mg Tab) 80 mg PO BID17 [facility] Stop: 02/10/21 16:59 Last Admin: 01/12/21 17:09 Dose: 80 mg Documented by: Gabapentin (Gabapentin 800 Mg Tab) 800 mg PO BID [facility] Stop: 02/03/21 20:59 Last Admin: 01/12/21 21:18 Dose: 800 mg Documented by: Glucagon (Glucagon For Inj 1 Mg Vial) 1 mg SQ UD PRN; Protocol PRN Reason: Hypoglycemia Protocol Stop: 02/03/21 19:47 Glucose (Glucose 10 Tabs/Tube) 4 - 8 tabs PO UD PRN; Protocol PRN Reason: Hypoglycemia Protocol Stop: 02/03/21 19:47 Glucose (Glucose 40% Gel 15 Gm Tube) 15 - 30 gm PO UD PRN; Protocol PRN Reason: Hypoglycemia Protocol Stop: 02/03/21 19:47 Guaifenesin (Guaifenesin 600 Mg Tabcr) 600 mg PO Q12 [facility] Stop: 02/09/21 09:44 Last Admin: 01/12/21 21:18 Dose: 600 mg Documented by: Insulin Aspart (Insulin Aspart 100 Units/Ml 3 Ml Pen) 0 units SC ACHS [facility] Stop: 02/03/21 20:59 Last Admin: 01/12/21 20:37 Dose: Not Given Documented by: Insulin Glargine (Insulin Glargine Solostar 100 Units/Ml 3 Ml Pen) 5 units SC BID [facility] Stop: 02/08/21 08:59 Last Admin: 01/12/21 21:18 Dose: 5 units Documented by: Methocarbamol (Methocarbamol 750 Mg Tablet) 750 mg PO TID [facility] Stop: 02/03/21 20:59 Last Admin: 01/12/21 21:18 Dose: 750 mg Documented by: Metoprolol Succinate (Metoprolol Succ 50mg Ext Rel Tab) 100 mg PO BID [facility] Stop: 02/03/21 20:59 Last Admin: 01/12/21 21:18 Dose: 100 mg Documented by: Miscellaneous (Remove Nicoderm Patch) 1 ea N/A DAILY@0859 [facility] Stop: 02/04/21 08:58 Last Admin: 01/12/21 08:44 Dose: 1 ea Documented by: Tegancellaneous (Fentanyl Patch Remove & Waste) 1 ea N/A Q3D@1959 [facility] Stop: 02/03/21 19:58 Last Admin: 01/10/21 21:05 Dose: 1 ea Documented by: Ryleeaneous (Check Fentanyl Patch Placement) 1 ea N/A QS [facility] Stop: 02/04/21 00:00 Last Admin: 01/12/21 23:09 Dose: 1 ea Documented by: Awais (Carbohydrates For Hypoglycemia ) 15 - 30 gm PO UD PRN PRN Reason: Hypoglycemia Protocol Stop: 02/03/21 19:47 Last Admin: 01/08/21 11:16 Dose: 15 gm Documented by: Multivitamins (Multivitamin Tab) 1 tab PO QAM [facility] Stop: 02/04/21 08:59 Last Admin: 01/12/21 08:42 Dose: 1 tab Documented by: Nicotine (Nicotine 21 Mg/24 Hr Tdsy) 21 mg TD QAM [facility] Stop: 02/03/21 18:29 Last Admin: 01/12/21 08:37 Dose: 21 mg Documented by: Ondansetron HCl (Ondansetron Inj 2 Mg/Ml 2 Ml Vial) 2 mg IV Q4H PRN PRN Reason: Nausea Stop: 02/10/21 10:31 Last Admin: 01/11/21 12:00 Dose: 2 mg Documented by: Oxycodone HCl (Oxycodone Hcl Ir 5 Mg Tab (Immediate Release)) 10 mg PO Q6H PRN PRN Reason: Pain Stop: 01/18/21 19:47 Last Admin: 01/10/21 20:51 Dose: 10 mg Documented by: Pantoprazole Sodium (Pantoprazole 40 Mg Tab) 40 mg PO DAILYBB [facility] Stop: 02/04/21 06:29 Last Admin: 01/12/21 07:12 Dose: 40 mg Documented by: Potassium Chloride (Potassium Chloride Crtab 20 Meq Tabcr) 40 meq PO DAILY [facility] Stop: 02/04/21 08:59 Last Admin: 01/12/21 08:40 Dose: 40 meq Documented by: Trazodone HCl (Trazodone Hcl 100 Mg Tab) 200 mg PO HS [facility] Stop: 02/03/21 20:59 Last Admin: 01/12/21 21:18 Dose: 200 mg Documented by: Umeclidinium [place] (Umeclidinium [place] 62.5mcg/Blister 7 Puffs/Inhaler) 1 puffs INH DAILY [facility] Stop: 02/07/21 08:59 Last Admin: 01/12/21 08:45 Dose: 1 puffs Documented by: Venlafaxine HCl (Venlafaxine Hcl Xr 150 Mg Capxr) 150 mg PO QAM [facility] Stop: 02/04/21 08:59 Last Admin: 01/12/21 08:40 Dose: 150 mg Documented by: Venlafaxine HCl (Venlafaxine Hcl Xr 75 Mg Capxr) 75 mg PO QAM [facility] Stop: 02/04/21 08:59 Last Admin: 01/12/21 08:41 Dose: 75 mg Documented by: Vitamin D (Cholecalciferol 1,000 Units 25 Mcg Tab) 1,000 units PO QAM [facility] Stop: 02/04/21 08:59 Last Admin: 01/12/21 08:43 Dose: 1,000 units Documented by: Zolpidem Tartrate (Zolpidem Tartrate 5 Mg Tab) 5 mg PO HS PRN PRN Reason: Sleep Stop: 02/05/21 19:28 Last Admin: 01/12/21 21:21 Dose: 5 mg Documented by:
[2021-01-13] MEDS: PANTOprazole 40 MG TAB PO SCH (06:45)
[2021-01-13 07:00] LABS: Hematocrit (blood only) 37.6 % (37-47); Hemoglobin 12.4 g/dL (12.0-16.0); Mean Corpuscular Hemoglobin 29.4 pg (25-34); Mean Corpuscular Volume 89.1 fL (80-100); Mean Platelet Volume 9.8 fL (7.4-10.4); Platelet Count 557 K/uL (130-400); RDW Coefficient of Variation 15.5 % (11.5-14.5); RDW Standard Deviation 50.1 fL (36.4-46.3); Red Blood Count 4.22 M/uL (4.2-5.4); White Blood Count 10.45 K/uL (4.8-10.8)
[2021-01-13] MEDS: ALBUT/IPRATROP 3MG/0.5MG NEB 3 ML VIAL NEB SCH ×4 (07:10→19:36)
[2021-01-13 07:17] LABS: BUN Creatinine Ratio 27.5 (10-20); Calcium 9.5 mg/dl (8.5-10.1); Creatinine Clr Calc Pharmacy 43.9 ml/min; Est GFR (African American) 45.5; Est GFR (Non-African American) 39.3; Magnesium 1.9 mg/dl (1.8-2.4)
[2021-01-13 07:18] LABS: Phosphorus 3.7 mg/dl (2.5-4.9)
[2021-01-13] MEDS: NICOTINE 21 MG/24 HR TDSY TD SCH (08:14)
[2021-01-13] MEDS: FUROSEMIDE 80 MG TAB PO SCH ×2 (08:14→17:13)
[2021-01-13] MEDS: dexAMETHasone 1 MG TAB PO SCH (08:14)
[2021-01-13] MEDS: CHOLECALCIFEROL 1,000 UNITS 25 MCG TAB PO SCH (08:14)
[2021-01-13] MEDS: MULTIVITAMIN TAB PO SCH (08:15)
[2021-01-13] MEDS: METHOCARBAMOL 750 MG TABLET PO SCH ×3 (08:15→20:59)
[2021-01-13] MEDS: guaiFENesin 600 MG TABCR PO SCH ×2 (08:15→21:01)
[2021-01-13] MEDS: dilTIAZem HCL 240 MG CAPCR PO SCH ×2 (08:15→20:58)
[2021-01-13] MEDS: VENLAFAXINE HCL XR 150 MG CAPXR PO SCH (08:15)
[2021-01-13] MEDS: DOXYCYCLINE HYCLATE 100 MG CAP PO SCH ×2 (08:15→20:58)
[2021-01-13] MEDS: VENLAFAXINE HCL XR 75 MG CAPXR PO SCH (08:15)
[2021-01-13] MEDS: GABAPENTIN 800 MG TAB PO SCH ×2 (08:16→20:58)
[2021-01-13] MEDS: METOPROLOL SUCC 50MG EXT REL TAB PO SCH ×2 (08:16→20:57)
[2021-01-13] MEDS: APIXABAN 5 MG TABLET PO SCH ×2 (08:16→20:59)
[2021-01-13] MEDS: CHECK fentaNYL PATCH PLACEMENT SCH ×2 (08:16→16:16)
[2021-01-13] MEDS: FLUTICASONE/VILANTEROL 200/25MCG 14 PUFFS/INHALER INH SCH (08:17)
[2021-01-13] MEDS: INSULIN GLARGINE SOLOSTAR 100 UNITS/ML 3 ML PEN SC SCH ×2 (08:18→21:01)
[2021-01-13] MEDS: UMECLIDINIUM BROMIDE 62.5MCG/BLISTER 7 PUFFS/INHALER INH SCH (08:18)
[2021-01-13] MEDS: POTASSIUM CHLORIDE CRTAB 20 MEQ TABCR PO SCH (08:18)
[2021-01-13] MEDS: INSULIN ASPART 100 UNITS/ML 3 ML PEN SC SCH ×4 (08:23→21:00)
--- NOTE | 2021-01-13 17:14 | Pulmonology Progress Note ---
Date of Service January 13, 2021 Assessment & Plan (1) Chronic respiratory failure with hypoxia, on home oxygen therapy: 65-year-old female with a past medical history of chronic hypoxemic respiratory failure, CHF, cor pulmonale, COPD continued tobacco abuse who presents to the hospital due to shortness of breath and was found to have COVID-19. Chronic hypoxemic respiratory failure: Symptoms and hypoxia seem to be near her baseline. Continue with her home therapy. I think she is stable for discharge. Continue to maintain oxygen saturations of 88 to 92%. She can follow-up with Dr. Vickers was her outpatient agricultural extension officer. Abnormal CT chest: Findings are suggestive of emphysema and possible interstitial lung disease. PFTs recommended as an outpatient. Interstitial lung disease work-up can be considered as an outpatient. Mild inflammatory changes seen possibly related to COVID-19. CHF: Appears euvolemic on exam at this time. Continue as needed diuresis. Pulmonary will sign off at this time. Thank you for the consultation. (2) Lab test positive for detection of COVID-19 virus: (3) Chronic obstructive pulmonary disease: (4) Abnormal CT scan, chest: Admission and Anticipated Discharge Date Admission Date: January 04, 2021 Subjective Patient seen and examined this afternoon per the request of the patient's hospitalist, Dr. iDaz. Patient is feeling well and is ready to go home. She denies any shortness of breath. She feels that her symptoms are at baseline. She is currently on 2 L of oxygen which is what she normally uses at home. Her lower extremity edema has improved. She denies any chest pain or pressure. She did receive 6 mg of Decadron this morning. Review of Systems Review of Systems: All systems reviewed & are unremarkable except as noted in HPI & below Physical Exam Constitutional: Elderly and frail appearing female no apparent distress. Nasal cannula in place. Eyes: PERRL, conjunctivae normal, anicteric sclerae Respiratory: normal respiratory effort, lungs clear to auscultation Cardiovascular: RRR, no murmur, no edema Gastrointestinal (Abdomen): normal bowel sounds, soft, nontender, no hepatosplenomegaly Musculoskeletal: no cyanosis or clubbing, extremities motor strength 5/5 Skin: no rashes, warm and dry Neurologic: PERRL, EOMI, accommodation nl, no face palsy, no dysarthria Psychiatric: A+Ox3, euthymic affect Results & Data Results & Data ([facility]) Vital Signs (Past 12 Hours) Vital Signs Temp Pulse Pulse Resp BP Pulse Ox 01/13/21 15:29 79 01/13/21 15:28 116 H 18 92 01/13/21 15:04 97.5 F L 97 H 19 134/51 L 91 01/13/21 11:13 98.1 F 99 H 19 131/80 93 01/13/21 10:20 75 18 93 01/13/21 07:16 98.1 F 84 18 123/72 94 01/13/21 07:10 82 18 95 01/13/21 07:00 77 Vital signs labs and imaging reviewed. PG Care Time/CCT Total # of Minutes Spent Total Time Spent with Patient: Total time spent is greater than 50% in coordination of care (as documented) at patient's floor/unit and/or counseling patient: Coding Level of Care Code 00943 Subseq Hosp Care Lvl 3 Diagnoses Chronic respiratory failure with hypoxia, on home oxygen therapy J96.11; Z99.81 Lab test positive for detection of COVID-19 virus U07.1 Chronic obstructive pulmonary disease J44.[address] scan, chest R93.89
[2021-01-13] MEDS: traZODone HCL 100 MG TAB PO SCH (20:57)
[2021-01-13] MEDS: CETIRIZINE HCL 10 MG TABLET PO SCH (20:59)
[2021-01-13] MEDS: ATORVASTATIN 40 MG TAB PO SCH (20:59)
[2021-01-13] MEDS: AMITRIPTYLINE HCL 50 MG TAB PO SCH (20:59)
[2021-01-13] MEDS: fentaNYL 50 MCG/HR TDSY TD SCH (21:04)
[2021-01-13] MEDS: ZOLPIDEM TARTRATE 5 MG TAB PO PRN (21:42)
[2021-01-14] MEDS: CHECK fentaNYL PATCH PLACEMENT SCH ×2 (00:23→08:39)
[2021-01-14] MEDS: PANTOprazole 40 MG TAB PO SCH (06:28)
[2021-01-14 06:45] LABS: BUN Creatinine Ratio 29.3 (10-20); Calcium 9.2 mg/dl (8.5-10.1); Creatinine Clr Calc Pharmacy 43.7 ml/min; Est GFR (African American) 45.9; Est GFR (Non-African American) 39.6; Magnesium 2.1 mg/dl (1.8-2.4); Potassium 4.3 mmol/L (3.5-5.1)
[2021-01-14] MEDS: ALBUT/IPRATROP 3MG/0.5MG NEB 3 ML VIAL NEB SCH ×2 (07:04→11:10)
--- NOTE | 2021-01-14 07:14 | Hospitalist Progress Note ---
Date of Service January 14, 2021 Assessment & Plan (1) Atrial flutter with rapid ventricular response: Present on admission after sending from PCP office for atrial flutter with RVR Received Lopressor 5 mg IV x1 Cardioversion was deferred during recent admission after HUSSEIN demonstrated evidence of left apical thrombus rate control Continue diltiazem, metoprolol and digoxin on MWF Cardiology on board Continue anticoagulant with Eliquis Continue monitor in telemetry Patient continues to be in a flutter, heart rate in the 60-90s (2) Acute on chronic diastolic CHF (congestive heart failure): BNP 4000 on admission Repeat CXR showed cardiomegaly with progressively worsened right greater than left asymmetric pulmonary edema. Layering pleural effusions. HUSSEIN 11/16/2020 -EF 55 to 60% increased lasix to 60mg IV BID Cardiology on board Monitored BMP while on IV lasix Continue monitor I/O Pt seems to be euvolemic, currently on 2L which is her baseline transitioned to home PO lasix (3) Chronic obstructive pulmonary disease: (4) Chronic respiratory failure with hypoxia, on home oxygen therapy: Wheezing noted on exam, likely secondary to volume overload No change in sputum production or other infectious signs noted Repeat CXR on 01/06 showed cardiomegaly with evidence of congestive failure and pulmonary edema. Held antibiotics on high flow oxygen Pulmonary on board Recommended to put on BiPAP given the diastolic CHF and fluid overload on 08/22 40% Can interchange between high flow and Bipap Continued with aggressive diuresis to keep the patient negative balance Now seems euvolemic - transitioned to PO lasix Also encourage IS and flutter valve Reports having phlegm Received Decadron and doxy CT chest obtained Discussed w/ pulmonary - for discharge, she should follow-up with pulmonary medicine, Findings are suggestive of emphysema and possible interstitial lung disease. PFTs recommended as an outpatient. Interstitial lung disease work-up can be considered as an outpatient. Mild inflammatory changes seen possibly related to COVID-19. Currently back to 2L O2 feeling well (5) Lab test positive for detection of COVID-19 virus: Patient was initially tested positive on 10/11/2020 She is not showing any signs of active COVID-19 infection She had 2 negative tests in the middle Inflammatory marker trending down with C-rec decreased from 12 to 10 ESR 84 and Ferritin 452 Continue suppl.oxygen and interchange with BIPAP Now on 2L (at baseline) (6) DM type 2 (diabetes mellitus, type 2): -Hgb A1c 8.3 10/2020 -Lantus and NovoLog (7) Chronic pain: -Continue home fentanyl patch and as needed oxycodone (8) CKD (chronic kidney disease), stage III: Creatinine 1.5, at baseline creatinine 1.4 Monitor renal functions while on IV lasix (9) Bipolar disorder: -Stable, continue home medications (10) DVT prophylaxis: -On Eliquis Admission and Anticipated Discharge Date Admission Date: January 04, 2021 Subjective Pt was seen and examined for follow up of SOB Sitting up in bed on 2L of suppl. O2 (at baseline) Says her breathing is better and wants to go home Denies any chest pain, palpitation, dizziness and fever Encourage flutter valve and IS Review of Systems Review of Systems: All systems reviewed & are unremarkable except as noted in HPI & below Constitutional: no fever and no chills Respiratory: + cough and + dyspnea (improved) Cardiovascular: no chest pain and no palpitations Gastrointestinal: no abdominal pain, no nausea and no vomiting Physical Exam Physical Exam: General- No acute distress Head- atraumatic Eyes- PERRL, EOMI, ENT- oropharynx clear Neck- supple, no JVD Lungs- + mild rhonchi, no wheezing Heart- no murmur Abdomen- normal bowel sounds, soft, nontender Extremities- no calf tenderness Neuro- alert, oriented x 3; PERRL, EOMI; no facial palsy; no dysarthria Skin- warm & dry Results & Data Results & Data ([facility]) Vital Signs (Past 12 Hours) Vital Signs Temp Pulse Resp BP Pulse Ox 01/14/21 07:04 67 18 92 01/14/21 03:02 36.5 C 79 20 129/72 92 01/13/21 23:01 36.5 C 103 H 20 135/71 93 01/13/21 19:38 106 H 18 94 Laboratory Results 01/14/21 01/14/21 01/13/21 Range/Units 07:08 06:02 20:00 Sodium 136 (136-145) mmol/L Potassium 4.3 (3.5-5.1) mmol/L Chloride 100 (98-107) mmol/L Carbon Dioxide 33 H (21-32) mmol/L Anion Gap 3.0 (3-11) BUN 41 H (7-18) mg/dl Creatinine 1.40 H (0.6-1.2) mg/dl Est Cr Clr Drug Dosing 43.7 ml/min Est GFR ( Amer) 45.9 Est GFR (Non-Af Amer) 39.6 BUN/Creatinine Ratio 29.3 H (10-20) Glucose 248 H (70-99) mg/dl POC Glucose 241 H 291 H (70-99) mg/dl Calcium 9.2 (8.5-10.1) mg/dl Phosphorus (2.5-4.9) mg/dl Magnesium 2.1 (1.8-2.4) mg/dl 01/13/21 01/13/21 01/13/21 Range/Units 16:49 16:49 12:08 Sodium (136-145) mmol/L Potassium (3.5-5.1) mmol/L Chloride (98-107) mmol/L Carbon Dioxide (21-32) mmol/L Anion Gap (3-11) BUN (7-18) mg/dl Creatinine (0.6-1.2) mg/dl Est Cr Clr Drug Dosing ml/min Est GFR ( Amer) Est GFR (Non-Af Amer) BUN/Creatinine Ratio (10-20) Glucose (70-99) mg/dl POC Glucose 276 H 313 H* 165 H (70-99) mg/dl Calcium (8.5-10.1) mg/dl Phosphorus (2.5-4.9) mg/dl Magnesium (1.8-2.4) mg/dl 01/13/21 01/13/21 Range/Units 07:51 06:01 Sodium 139 (136-145) mmol/L Potassium 4.0 (3.5-5.1) mmol/L Chloride 101 (98-107) mmol/L Carbon Dioxide 34 H (21-32) mmol/L Anion Gap 3.0 (3-11) BUN 39 H (7-18) mg/dl Creatinine 1.41 H (0.6-1.2) mg/dl Est Cr Clr Drug Dosing 43.9 ml/min Est GFR ( Amer) 45.5 Est GFR (Non-Af Amer) 39.3 BUN/Creatinine Ratio 27.5 H (10-20) Glucose 121 H (70-99) mg/dl POC Glucose 119 H (70-99) mg/dl Calcium 9.5 (8.5-10.1) mg/dl Phosphorus 3.7 (2.5-4.9) mg/dl Magnesium 1.9 (1.8-2.4) mg/dl Medications Administered Current Inpatient Medications Acetaminophen (Acetaminophen 325 Mg Tab) 650 mg PO Q4H PRN PRN Reason: Pain or Fever Stop: 02/03/21 19:47 Albuterol (Albut/Ipratrop 3mg/0.5mg Neb 3 Ml Vial) 3 ml NEB QIDR [facility] Stop: 02/03/21 18:59 Last Admin: 01/14/21 07:04 Dose: 3 ml Documented by: Amitriptyline HCl (Amitriptyline Hcl 50 Mg Tab) 50 mg PO [facility] Stop: 02/03/21 20:59 Last Admin: 01/13/21 20:59 Dose: 50 mg Documented by: Apixaban (Apixaban 5 Mg Tablet) 5 mg PO BID [facility] Stop: 02/03/21 20:59 Last Admin: 01/13/21 20:59 Dose: 5 mg Documented by: Atorvastatin Calcium (Atorvastatin 40 Mg Tab) 40 mg PO [facility] Stop: 02/03/21 20:59 Last Admin: 01/13/21 20:59 Dose: 40 mg Documented by: Calcitriol (Calcitriol 0.25 Mcg Capsule) 0.25 mcg PO MoWeFr@0900 [facility] Stop: 02/04/21 08:59 Last Admin: 01/12/21 08:40 Dose: 0.25 mcg Documented by: Cetirizine HCl (Cetirizine Hcl 10 Mg Tablet) 10 mg PO [facility] Stop: 02/03/21 20:59 Last Admin: 01/13/21 20:59 Dose: 10 mg Documented by: Dextrose (Dextrose 50% 50 Ml Syringe) 25 - 50 ml IV UD PRN; Protocol PRN Reason: Hypoglycemia Protocol Stop: 02/03/21 19:47 Digoxin (Digoxin 0.125 Mg Tab) 0.125 mg PO MoWeFr@0900 [facility] Stop: 02/04/21 08:59 Last Admin: 01/12/21 08:40 Dose: 0.125 mg Documented by: Diltiazem HCl (Diltiazem Hcl 240 Mg Capcr) 240 mg PO BID [facility] Stop: 02/03/21 20:59 Last Admin: 01/13/21 20:58 Dose: 240 mg Documented by: Fentanyl (Fentanyl 50 Mcg/Hr Tdsy) 50 mcg TD Q3D@2000 [facility] Stop: 01/18/21 19:59 Last Admin: 01/13/21 21:04 Dose: 50 mcg Documented by: Fluticasone/Vilanterol (Fluticasone/Vilanterol 200/25mcg 14 Puffs/Inhaler) 1 puffs INH DAILY [facility] Stop: 02/04/21 08:59 Last Admin: 01/13/21 08:17 Dose: 1 puffs Documented by: Furosemide (Furosemide 80 Mg Tab) 80 mg PO BID17 [facility] Stop: 02/10/21 16:59 Last Admin: 01/13/21 17:13 Dose: 80 mg Documented by: Gabapentin (Gabapentin 800 Mg Tab) 800 mg PO BID [facility] Stop: 02/03/21 20:59 Last Admin: 01/13/21 20:58 Dose: 800 mg Documented by: Glucagon (Glucagon For Inj 1 Mg Vial) 1 mg SQ UD PRN; Protocol PRN Reason: Hypoglycemia Protocol Stop: 02/03/21 19:47 Glucose (Glucose 10 Tabs/Tube) 4 - 8 tabs PO UD PRN; Protocol PRN Reason: Hypoglycemia Protocol Stop: 02/03/21 19:47 Glucose (Glucose 40% Gel 15 Gm Tube) 15 - 30 gm PO UD PRN; Protocol PRN Reason: Hypoglycemia Protocol Stop: 02/03/21 19:47 Guaifenesin (Guaifenesin 600 Mg Tabcr) 600 mg PO Q12 [facility] Stop: 02/09/21 09:44 Last Admin: 01/13/21 21:01 Dose: 600 mg Documented by: Insulin Aspart (Insulin Aspart 100 Units/Ml 3 Ml Pen) 0 units SC ACHS [facility] Stop: 02/03/21 20:59 Last Admin: 01/13/21 21:00 Dose: 6 units Documented by: Insulin Glargine (Insulin Glargine Solostar 100 Units/Ml 3 Ml Pen) 5 units SC BID [facility] Stop: 02/08/21 08:59 Last Admin: 01/13/21 21:01 Dose: 5 units Documented by: Methocarbamol (Methocarbamol 750 Mg Tablet) 750 mg PO TID [facility] Stop: 02/03/21 20:59 Last Admin: 01/13/21 20:59 Dose: 750 mg Documented by: Metoprolol Succinate (Metoprolol Succ 50mg Ext Rel Tab) 100 mg PO BID [facility] Stop: 02/03/21 20:59 Last Admin: 01/13/21 20:57 Dose: 100 mg Documented by: Awais (Remove Nicoderm Patch) 1 ea N/A DAILY@0859 [facility] Stop: 02/04/21 08:58 Last Admin: 01/13/21 08:16 Dose: 1 ea Documented by: Awais (Fentanyl Patch Remove & Waste) 1 ea N/A Q3D@1959 [facility] Stop: 02/03/21 19:58 Last Admin: 01/13/21 21:01 Dose: 1 ea Documented by: Awais (Check Fentanyl Patch Placement) 1 ea N/A QS [facility] Stop: 02/04/21 00:00 Last Admin: 01/14/21 00:23 Dose: 1 ea Documented by: Awais (Carbohydrates For Hypoglycemia ) 15 - 30 gm PO UD PRN PRN Reason: Hypoglycemia Protocol Stop: 02/03/21 19:47 Last Admin: 01/08/21 11:16 Dose: 15 gm Documented by: Multivitamins (Multivitamin Tab) 1 tab PO QAM [facility] Stop: 02/04/21 08:59 Last Admin: 01/13/21 08:15 Dose: 1 tab Documented by: Nicotine (Nicotine 21 Mg/24 Hr Tdsy) 21 mg TD QAM [facility] Stop: 02/03/21 18:29 Last Admin: 01/13/21 08:14 Dose: 21 mg Documented by: Ondansetron HCl (Ondansetron Inj 2 Mg/Ml 2 Ml Vial) 2 mg IV Q4H PRN PRN Reason: Nausea Stop: 02/10/21 10:31 Last Admin: 01/11/21 12:00 Dose: 2 mg Documented by: Oxycodone HCl (Oxycodone Hcl Ir 5 Mg Tab (Immediate Release)) 10 mg PO Q6H PRN PRN Reason: Pain Stop: 01/18/21 19:47 Last Admin: 01/10/21 20:51 Dose: 10 mg Documented by: Pantoprazole Sodium (Pantoprazole 40 Mg Tab) 40 mg PO DAILYBB [facility] Stop: 02/04/21 06:29 Last Admin: 01/14/21 06:28 Dose: 40 mg Documented by: Potassium Chloride (Potassium Chloride Crtab 20 Meq Tabcr) 40 meq PO DAILY [facility] Stop: 02/04/21 08:59 Last Admin: 01/13/21 08:18 Dose: 40 meq Documented by: Trazodone HCl (Trazodone Hcl 100 Mg Tab) 200 mg PO HS [facility] Stop: 02/03/21 20:59 Last Admin: 01/13/21 20:57 Dose: 200 mg Documented by: Umeclidinium Pomeroy (Umeclidinium [place] 62.5mcg/Blister 7 Puffs/Inhaler) 1 puffs INH DAILY [facility] Stop: 02/07/21 08:59 Last Admin: 01/13/21 08:18 Dose: 1 puffs Documented by: Venlafaxine HCl (Venlafaxine Hcl Xr 150 Mg Capxr) 150 mg PO QAM [facility] Stop: 02/04/21 08:59 Last Admin: 01/13/21 08:15 Dose: 150 mg Documented by: Venlafaxine HCl (Venlafaxine Hcl Xr 75 Mg Capxr) 75 mg PO QAM [facility] Stop: 02/04/21 08:59 Last Admin: 01/13/21 08:15 Dose: 75 mg Documented by: Vitamin D (Cholecalciferol 1,000 Units 25 Mcg Tab) 1,000 units PO QAM [facility] Stop: 02/04/21 08:59 Last Admin: 01/13/21 08:14 Dose: 1,000 units Documented by: Zolpidem Tartrate (Zolpidem Tartrate 5 Mg Tab) 5 mg PO HS PRN PRN Reason: Sleep Stop: 02/05/21 19:28 Last Admin: 01/13/21 21:42 Dose: 5 mg Documented by:
[2021-01-14] MEDS: INSULIN ASPART 100 UNITS/ML 3 ML PEN SC SCH ×2 (08:27→12:21)
[2021-01-14] MEDS: guaiFENesin 600 MG TABCR PO SCH (08:29)
[2021-01-14] MEDS: METHOCARBAMOL 750 MG TABLET PO SCH (08:29)
[2021-01-14] MEDS: INSULIN GLARGINE SOLOSTAR 100 UNITS/ML 3 ML PEN SC SCH (08:29)
[2021-01-14] MEDS: GABAPENTIN 800 MG TAB PO SCH (08:30)
[2021-01-14] MEDS: METOPROLOL SUCC 50MG EXT REL TAB PO SCH (08:30)
[2021-01-14] MEDS: dilTIAZem HCL 240 MG CAPCR PO SCH (08:30)
[2021-01-14] MEDS: DOXYCYCLINE HYCLATE 100 MG CAP PO SCH (08:30)
[2021-01-14] MEDS: APIXABAN 5 MG TABLET PO SCH (08:30)
[2021-01-14] MEDS: NICOTINE 21 MG/24 HR TDSY TD SCH (08:30)
[2021-01-14] MEDS: MULTIVITAMIN TAB PO SCH (08:31)
[2021-01-14] MEDS: CHOLECALCIFEROL 1,000 UNITS 25 MCG TAB PO SCH (08:32)
[2021-01-14] MEDS: UMECLIDINIUM BROMIDE 62.5MCG/BLISTER 7 PUFFS/INHALER INH SCH (08:32)
[2021-01-14] MEDS: FLUTICASONE/VILANTEROL 200/25MCG 14 PUFFS/INHALER INH SCH (08:32)
[2021-01-14] MEDS: dexAMETHasone 1 MG TAB PO SCH (08:33)
[2021-01-14] MEDS: VENLAFAXINE HCL XR 75 MG CAPXR PO SCH (08:33)
[2021-01-14] MEDS: VENLAFAXINE HCL XR 150 MG CAPXR PO SCH (08:33)
[2021-01-14] MEDS: FUROSEMIDE 80 MG TAB PO SCH (08:39)
[2021-01-14] MEDS: POTASSIUM CHLORIDE CRTAB 20 MEQ TABCR PO SCH (08:40)
--- NOTE | 2021-01-14 08:57 | Discharge Summary ---
Date of Service January 14, 2021 Admission HPI Per Admitting Provider 65-year-old female with PMH DM type II, COPD with chronic hypoxic respiratory failure on home O2, chronic diastolic CHF, atrial fibrillation/atrial flutter anticoagulated on Eliquis, chronic pain, CKD stage III, history of mitral valve repair, and other problems listed below who was sent to the ED by PCP for evaluation of shortness of breath and atrial flutter with RVR. Patient recently admitted to [facility] 11/09 through 11/18 for atrial flutter with RVR and acute on chronic diastolic CHF. During that admission, patient underwent HUSSEIN that showed a possible left atrial thrombus therefore cardioversion was deferred. Patient's Coumadin was changed to Eliquis. Cardizem was increased to 240 mg daily. Patient was seen in the cardiology clinic on 11/30 and Cardizem was uptitrated further to 240 mg twice daily. She was again evaluated on 12/08 and digoxin 3 times per week was added. Patient reports worsening shortness of breath of the past several weeks. She was also having some diarrhea and felt that the symptoms were due to diltiazem. She then self down titrated her diltiazem to 240 mg daily. Patient was seen by PCP today and found to be in atrial flutter with RVR. She was then sent to the ED for further evaluation. Patient denies chest pain. Reports some occasional episodes of palpitations. No lightheadedness, dizziness, diaphoresis, syncopal events. She denies abdominal pain, nausea, vomiting. No fevers or chills. Denies cough and sputum production. Reports she chronically sleeps at a 45 degree angle. No worsening lower extremity edema. She denies urinary symptoms. In the ED, EKG shows a trial flutter with rate 120. Labs show BNP 4000, otherwise unremarkable/at patient's baseline. CXR suggestive of pulmonary edema. Patient is saturating well on her chronic 2 L of oxygen. Patient was given metoprolol 5 mg IV with improvement in heart rate. Admission Exam Per Admitting Provider Constitutional: WD/WN, vitals as above Chronically ill-appearing Eyes: PERRL, conjunctivae normal, anicteric sclerae ENMT: external ear and nose normal, oropharynx normal Respiratory: normal respiratory effort; no respiratory distress Auscultation: + crackles (bilateral ) and + wheezes (Bilateral, expiratory) Cardiovascular: Rate/Rhythm: regular rate and regular rhythm Vessels: normal peripheral pulses Extremities: no edema Gastrointestinal (Abdomen): normal bowel sounds, soft, nontender, no hepatosplenomegaly Musculoskeletal: no cyanosis or clubbing, extremities motor strength 5/5 Skin: no rashes, warm and dry Chronic venous changes BLE Neurologic: PERRL, EOMI, accommodation nl, no face palsy, no dysarthria Psychiatric: A+Ox3, euthymic affect Principal Diagnosis Acute on chronic respiratory failure COPD Atrial flutter with RVR Acute on chronic diastolic CHF Discharge Exam General- No acute distress Head- atraumatic Eyes- PERRL, EOMI, ENT- oropharynx clear Neck- supple, no JVD Lungs- + mild rhonchi, no wheezing Heart- no murmur Abdomen- normal bowel sounds, soft, nontender Extremities- no calf tenderness Neuro- alert, oriented x 3; PERRL, EOMI; no facial palsy; no dysarthria Skin- warm & dry Discharge Data Allergies Allergy/AdvReac Type Severity Reaction Status Date / Time bee venom protein (honey bee) Allergy Severe SWELLING Verified 01/04/21 16:00 lisinopril Allergy Severe ANGIOEDEMA, Verified 01/04/21 16:00 FACIAL CELLULITIS, RASH strawberry Allergy Severe LIPS, Verified 01/04/21 16:00 TONGUE, FACE SWELLS alprazolam Allergy Intermediate RED FACE, Verified 01/04/21 16:00 FACE SWELLING alendronate sodium Allergy Unknown ON GMG MED Verified 01/04/21 16:00 LIST colesevelam AdvReac Intermediate Abdominal Verified 01/04/21 16:00 Pain lactose AdvReac Intermediate VOMTING Verified 01/04/21 16:00 DIARRHEA ABDOMINAL PAIN-LACTOSE INTOLERANCE lithium AdvReac Intermediate jitters Verified 01/04/21 16:00 metronidazole AdvReac Intermediate ABD PAIN, Verified 01/04/21 16:00 WEAKNESS, NAUSEA, VOMITING prednisone AdvReac Mild AGGRESSIVE Verified 01/04/21 16:00 BEHAVIOR Consultations 01/04/21 16:57 ED Decision to Admit Stat 01/04/21 19:48 Consult Cardiology Routine 01/07/21 09:31 Consult Pulmonology Routine Ordered Studies 01/12/21 16:39 CT chest diagnostic wo con Routine IMPRESSION: 1. Cardiomegaly with pulmonary artery hypertension. 2. Mild pulmonary edema with trace pleural effusions. 3. Nodular consolidative and groundglass opacities of the left lung base are compatible with an infectious or inflammatory pneumonitis. 4. Unchanged mediastinal and hilar adenopathy. 5. Additional findings as above. Hospital Course (1) Atrial flutter with rapid ventricular response: Present on admission after sending from PCP office for atrial flutter with RVR Received Lopressor 5 mg IV x1 Cardioversion was deferred during recent admission after HUSSEIN demonstrated evidence of left apical thrombus rate control Continue diltiazem, metoprolol and digoxin on F Cardiology on board Continue anticoagulant with Eliquis Continue monitor in telemetry Patient continues to be in a flutter, heart rate in the 60-90s (2) Acute on chronic diastolic CHF (congestive heart failure): BNP 4000 on admission Repeat CXR showed cardiomegaly with progressively worsened right greater than left asymmetric pulmonary edema. Layering pleural effusions. HUSSEIN 11/16/2020 -EF 55 to 60% increased lasix to 60mg IV BID Cardiology on board Monitored BMP while on IV lasix Continue monitor I/O Pt seems to be euvolemic, currently on 2L which is her baseline transitioned to home PO lasix (3) Chronic obstructive pulmonary disease: (4) Chronic respiratory failure with hypoxia, on home oxygen therapy: Wheezing noted on exam, likely secondary to volume overload No change in sputum production or other infectious signs noted Repeat CXR on 01/06 showed cardiomegaly with evidence of congestive failure and pulmonary edema. Held antibiotics on high flow oxygen Pulmonary on board Recommended to put on BiPAP given the diastolic CHF and fluid overload on 08/22 40% Can interchange between high flow and Bipap Continued with aggressive diuresis to keep the patient negative balance Now seems euvolemic - transitioned to PO lasix Also encourage IS and flutter valve Reports having phlegm Received Decadron and doxy CT chest obtained Discussed w/ pulmonary - for discharge, she should follow-up with pulmonary medicine, Findings are suggestive of emphysema and possible interstitial lung disease. PFTs recommended as an outpatient. Interstitial lung disease work-up can be considered as an outpatient. Mild inflammatory changes seen possibly related to COVID-19. Currently back to 2L O2 feeling well (5) Lab test positive for detection of COVID-19 virus: Patient was initially tested positive on 10/11/2020 She is not showing any signs of active COVID-19 infection She had 2 negative tests in the middle Inflammatory marker trending down with C-rec decreased from 12 to 10 ESR 84 and Ferritin 452 Continue suppl.oxygen and interchange with BIPAP Now on 2L (at baseline) (6) DM type 2 (diabetes mellitus, type 2): -Hgb A1c 8.3 10/2020 -Lantus and NovoLog (7) Chronic pain: -Continue home fentanyl patch and as needed oxycodone (8) CKD (chronic kidney disease), stage III: Creatinine 1.5, at baseline creatinine 1.4 Monitor renal functions while on IV lasix (9) Bipolar disorder: -Stable, continue home medications (10) DVT prophylaxis: -On Eliquis Total Time Total Time Spent Total Time Spent (In Minutes): 40 Total Time Includes: Examination of the Patient, Discharge Planning, Medication Reconciliation and Communication With Other Providers Discharge Plan Discharge Items Patient Disposition: Home - Self-Care Reason For Visit: AFIB, RVR, CHF Discharge Diagnosis: Acute on chronic respiratory failure COPD Atrial flutter with RVR Acute on chronic diastolic CHF Condition on Discharge: Good Activity: Per Instructions section Non-emergency contact: Primary Care Provider and Activity Aide Call non-emergency contact if: you have any medication questions and your symptoms worsen Follow-up/Referrals: Manoj Goins, [Primary Care Provider] - Diet: Carb Consistent or DM2, Heart Healthy and Low Sodium (2gm) Addtl Attending Provider Instructions: Follow-up with your primary care doctor within 1 week. It is strongly recommended that you follow-up with your pulmonary doctor, and that you will have a pulmonary test done. You will also need to follow-up with cardiology, and have a possible cardioversion, as discussed before. It is important that you take your heart medications as prescribed, specifically diltiazem 240 mg twice daily, metoprolol 100 mg twice daily, digoxin 0.125 on Friday, Friday and Friday. Monitor your fluid, by weighing yourself daily and recording these numbers. Make sure that your healthcare providers know your daily weights, and contact them if your weight increases 2 to 3 pounds overnight or 5 pounds over several days. Addtl Lithograph Designer Provider Instructions: Call your Primary Care doctor if any of the following symptoms or problems start or get worse: * Shortness of breath or difficulty breathing * Wake up at night short of breath * Chest pain * Cough * Swelling of your hands, feet, or legs * More fatigued or tired with your normal activity * Palpitations - sudden fast heart beats WEIGHT * Weigh yourself every morning after using the bathroom. * Use the same scale. * Wear the same amount of clothing. * Write your weight down on a chart. * Call your Primary Care doctor if you gain more than 2-3 pounds in 1-2 days. MEDICATIONS * Use this discharge instruction sheet for medication instructions. * Take your medications at the time your doctor ordered. * Do not skip a dose of your medicines. * If you miss a dose of medicine, take it as soon as possible, but DO NOT DOUBLE A DOSE. * Read your medicine information when you get home. * Know all of the side effects of your medicine. If in doubt, ask your pharmacist * Call your Primary Care doctor's office if you have any side effects. * Be sure all of your doctors know what medicine and herbs you take (including cold, flu, and herbal medicine). Take the following with you to your follow-up doctor appointments: * Weight Chart * Medication List * List of questions Do not drink excessive alcohol, beer or wine. Pending Studies at Discharge: No Stand-Alone Forms: [facility] [employer], Smoking Cessation Medications and DC Order Prescriptions: New guaifenesin [Mucinex] 600 mg Tablet Extended Release 12hr 600 mg PO Q12 5 Days Qty: 10 RF: 0 Continued gabapentin 800 mg Tablet 800 mg PO BID RF: 0 potassium chloride 10 mEq tablet extended release 40 meq PO DAILY RF: 0 Lantus U-100 Insulin 100 unit/mL solution 18 unit SUBCUT BID RF: 0 oxycodone 10 mg tablet 10 mg PO Q6H PRN (Reason: Pain) RF: 0 nitroglycerin [Nitrostat] 0.4 mg tablet, sublingual 0.4 mg sublingual DIRECTED PRN (Reason: Chest Pain) RF: 0 multivitamin Tablet 1 tab PO QAM RF: 0 atorvastatin 40 mg Tablet 40 mg PO HS RF: 0 fentanyl 50 mcg/hr Patch 72 Hour 50 mcg TRANSDERMAL [id number] RF: 0 cetirizine 10 mg Tablet 10 mg PO HS RF: 0 venlafaxine 150 mg Capsule,Extended Release 24hr 150 mg PO QAM RF: 0 ondansetron 8 mg Tablet,Disintegrating 8 mg PO BID PRN (Reason: Nausea) RF: 0 methocarbamol 750 mg Tablet 750 mg PO TID RF: 0 epinephrine [EpiPen] 0.3 mg/0.3 mL Auto-Injector 0.3 mg IM DIRECTED PRN (Reason: Allergic Reaction) RF: 0 docusate sodium 100 mg Tablet 100 mg PO BID RF: 0 Spiriva with HandiHaler 18 mcg Capsule, W/Inhalation Device 1 cap INHALATION QAM RF: 0 cholecalciferol (vitamin D3) [Vitamin D3] 1,000 unit Tablet 1,000 unit PO QAM RF: 0 venlafaxine 75 mg Capsule,Extended Release 24hr 75 mg PO QAM RF: 0 trazodone 100 mg Tablet 200 mg PO HS RF: 0 zolpidem 5 mg Tablet 5 mg PO HS RF: 0 levalbuterol HCl 1.25 mg/3 mL solution for nebulization 1.25 mg INHALATION Q4H PRN (Reason: Wheezing) RF: 0 fluticasone propion-salmeterol [Advair Diskus] 250-50 mcg/dose blister with device 1 inh INHALATION BID RF: 0 calcitriol 0.25 mcg capsule 0.25 mcg PO 3XWK RF: 0 acetaminophen 500 mg Tablet 500 mg PO Q6H PRN (Reason: Pain, Mild/Moderate) RF: 0 pantoprazole 40 mg tablet,delayed release (DR/EC) 40 mg PO DAILYBB RF: 0 metoprolol succinate 100 mg tablet extended release 24 hr 100 mg PO BID RF: 0 Gaviscon 80-14.2 mg tablet,chewable 1 tab PO TID PRN (Reason: Reflux) RF: 0 prochlorperazine maleate [Compazine] 10 mg Tablet 10 mg PO Q6H PRN (Reason: Nausea) RF: 0 amitriptyline 50 mg Tablet 50 mg PO HS RF: 0 benzonatate 100 mg Capsule 100 mg PO TID PRN (Reason: Cough) RF: 0 polyethylene glycol 3350 17 gram/dose Powder 17 g PO DAILY RF: 0 melatonin 10 mg Tablet 10 mg PO HS RF: 0 furosemide 40 mg tablet 80 mg PO BID RF: 0 Eliquis 5 mg tablet 5 mg PO BID Qty: 60 RF: 0 imiquimod [Aldara] 5 % Cream In Packet 1 applic TOPICAL HS RF: 0 ammonium lactate 12 % Cream 1 applic TOPICAL DAILY RF: 0 digoxin 125 mcg (0.125 mg) tablet 125 mcg PO 3XWK RF: 0 nystatin 100,000 unit/gram Powder 1 applic TOPICAL TID RF: 0 levalbuterol tartrate [Xopenex HFA] 45 mcg/actuation Hfa Aerosol Inhaler 1 puff INHALATION Q4H PRN (Reason: WHEEZING, IF NEB NOT AVAILABLE.) RF: 0 diltiazem HCl 240 mg capsule,extended release 24hr 240 mg PO BID RF: 0 Discharge Orders: Discharge Order (Routine); Ordered 01/14/21 Ordered By: Remi Diaz Admission Data Admit Date/Time: 01/04/21 18:03 Attending Provider: Remi Diaz Admit Provider: Ashleigh Humphrey Primary Care Provider: Manoj Goins Other Providers: Ashleigh Humphrey ; Mc House ; Kevin Rocha ; Elise Guillaume
== END 2021-01-14 12:55 | disposition home health service (06) | DRG 291 ==
LOC: ED 13:42 → SUATTDRO 18:03 → 2S 18:03 → 2E 01-10 18:55
DX: Z88.1 Allergy status to other antibiotic agents; Z68.33 Body mass index [BMI] 33.0-33.9, adult; M54.9 Dorsalgia, unspecified; Z91.02 Food additives allergy status; Z91.030 Bee allergy status; Z83.3 Family history of diabetes mellitus; I27.29 Other secondary pulmonary hypertension; U07.1 COVID-19; N18.30 Chronic kidney disease, stage 3 unspecified; G89.29 Other chronic pain; J43.9 Emphysema, unspecified; Z79.01 Long term (current) use of anticoagulants; J96.21 Acute and chronic respiratory failure with hypoxia; M79.7 Fibromyalgia; E11.43 Type 2 diabetes mellitus with diabetic autonomic (poly)neuropathy; F31.9 Bipolar disorder, unspecified; Z79.899 Other long term (current) drug therapy; K21.9 Gastro-esophageal reflux disease without esophagitis; E11.42 Type 2 diabetes mellitus with diabetic polyneuropathy; E66.9 Obesity, unspecified; Z86.718 Personal history of other venous thrombosis and embolism; F43.10 Post-traumatic stress disorder, unspecified; E11.22 Type 2 diabetes mellitus with diabetic chronic kidney disease; Z51.81 Encounter for therapeutic drug level monitoring; E78.5 Hyperlipidemia, unspecified; Z79.4 Long term (current) use of insulin; I50.33 Acute on chronic diastolic (congestive) heart failure; K22.70 Barrett's esophagus without dysplasia; I48.92 Unspecified atrial flutter; I48.0 Paroxysmal atrial fibrillation; F41.9 Anxiety disorder, unspecified; F17.210 Nicotine dependence, cigarettes, uncomplicated; J84.89 Other specified interstitial pulmonary diseases; I27.81 Cor pulmonale (chronic); Z86.73 Personal history of transient ischemic attack (TIA), and cerebral infarction without residual deficits; I13.0 Hypertensive heart and chronic kidney disease with heart failure and stage 1 through stage 4 chronic kidney disease, or unspecified chronic kidney disease; G47.33 Obstructive sleep apnea (adult) (pediatric); Z88.8 Allergy status to other drugs, medicaments and biological substances; Z99.81 Dependence on supplemental oxygen

== ENCOUNTER 2021-02-18 22:46 | Inpatient (IN) ==
[2021-02-18] MEDS ORDERED: LEVALBUTEROL HCL 1.25 MG/3 ML NEB NEB STA (23:03)
--- NOTE | 2021-02-18 23:08 | Emergency Department Note ---
Impression & Plan Chest pain, Atrial flutter ED Provider Note NAME: ALVARO ROBERTS AGE: 65 SEX: F : 1955 ARRIVES VIA: Ambulance INFORMANT: Patient, EMS ED PROVIDER(S): Wil Coffman MD CHIEF COMPLAINT: chest pain HPI: This 65-year-old female who presents emergency department complaining of chest pain with sweating that started yesterday at rest. The patient reports that the chest pain comes and goes and that rest seems to make it better and exertion makes it worse. She also has increased congestion. She describes the pain as an ache with radiation into her back. She is not taking anything for the pain prior to arrival. ROS: See above HPI for pertinent positives & negatives. A total of 10 systems reviewed and were otherwise negative. PAST MEDICAL HISTORY: See Below PAST SURGICAL HISTORY: See Below FAMILY HISTORY: See Below SOCIAL HISTORY: See Below HOME MEDICATIONS: See Below ALLERGIES: See Below VITALS: See Below PHYSICAL EXAMINATION: VITAL SIGNS - Vital signs and nursing notes were reviewed. GENERAL -65 -year-old female appearing stated age who is in no acute distress. Communicates well with provider and answers questions appropriately. SKIN - Without rashes. HEAD - NC/AT. EYES - PERRL with EOMI bilaterally. Sclera anicteric. Palpebral conjunctiva pink and moist with no injection noted. EARS - No deformities of external structures noted on gross examination bilaterally. NOSE - Midline and without cyanosis. No epistaxis or purulent drainage noted. Septum midline without deviation or septal hematoma noted. MOUTH/OROPHARYNX - Without perioral cyanosis. Buccal mucosa pink and moist and without leukoplakia. Tongue midline with equal elevation of palate bilaterally. No tonsillar hypertrophy, erythema, or exudates noted. NECK - Neck with FROM. Supple to palpation. No nuchal rigidity. LUNGS - Chest wall symmetric without accessory muscle use, intercostals retractions, or central cyanosis. Normal vesicular breath sounds CTA B/L. No wheezes, rales, or rhonchi appreciated. CARDIAC - RRR with S1/S2. No murmur, rubs, or gallops appreciated. ABDOMEN - Abdominal contour without pulsations or visible masses. BS normoactive all four quadrants. No tenderness, palpable masses, hepatosplenomegaly, or ascites noted. EXTREMITIES - No clubbing or peripheral cyanosis. No pretibial edema present. +3/5 radial, posterior tibial, and dorsalis pedis pulses palpated throughout. +5/5 strength noted in UE/LE bilaterally. NEUROLOGIC - Cranial nerves II through XII grossly intact. Sensory intact to light touch throughout. Patellar reflexes +2/4. PSYCH - A&Ox3 and cooperates fully with examiner. Pt is very pleasant and interacts well with examiner. MEDICAL DECISION MAKING: Patient was seen and evaluated as above in room C10. Review was performed of nursing notes and vital signs. I did review pertinent previous visits and patient history. After obtaining a thorough history and physical examination the above work up was performed. This 65-year-old female presents emergency department complaining of left-sided chest pain. She was given Lasix for her chest pain upon arrival to the emergency department. She was also given Nitropaste. Patient then began complaining of a headache, for which she was then given Tylenol as well as magnesium and droperidol. While in the department, I personally reevaluated the patient several times and each time the patient was found to be resting comfortably. The patient was educated upon management, educated upon todays findings/results, educated upon importance of follow up from today's visit, educated upon symptoms in which to return, had questions answered prior to discharge, verbalized understanding, and was discharged home in good condition. An order was placed for continuous cardiac monitoring. The monitor shows a rate of 59 with a flutter rhythm. The patient was evaluated during a period of high volume and high acuity during the global COVID-19 pandemic, and that diagnosis was suspected/considered upon their initial presentation. Their evaluation, treatment and testing was cons istent with current guidelines for patients who present with complaints or symptoms that may be related to COVID-19. Patient was seen while provider was wearing PPE. Triage Nursing notes reviewed. Prior medical records reviewed Vital Signs: reviewed and remarkable for no significant abnormalities Differential diagnosis: Cardiac ischemia, aortic dissection, pulmonary embolism, pneumothorax, pneumonia, pericarditis, myocarditis, esophageal rupture, GERD, cholecystitis, pancreatitis, musculoskeletal, as well as other pathologies. ER treatment provided: See below Diagnostics interpreted by me: ECG: A flutter with 4-1 AV conduction right bundle branch block QTC is 392 ventricular rate is 59 EKG is compared to 01/19/2021, ventricular rate has decreased by 42 Laboratory studies: As stated above and show below. Imaging studies: A 1 view of the chest shows congestion at the right lung base Consultation(s): Internal Medicine Past Med/Surg History Medical History Abnormal CT scan, chest Anxiety Asthma Atrial fibrillation Atrial flutter Lynn esophagus Bipolar disorder Chronic back pain Chronic cor pulmonale Chronic hyponatremia Chronic kidney disease Chronic obstructive pulmonary disease Chronic pain Chronic respiratory failure Chronic respiratory failure with hypoxia, on home oxygen therapy CKD (chronic kidney disease), stage III Compression fracture of T3 vertebra COVID-19 virus detected COVID-19 virus infection CVA (cerebral vascular accident) Depression Diastolic CHF, chronic DM type 2 (diabetes mellitus, type 2) Fibromyalgia Gastroparesis GERD (gastroesophageal reflux disease) History of cardioversion History of Clostridium difficile infection History of DVT (deep vein thrombosis) HTN (hypertension) Hyperlipidemia Hypothyroidism Migraine Mitral valve disorder Obesity Osteoarthritis Peripheral neuropathy Post traumatic stress disorder Pulmonary HTN Severe obstructive sleep apnea Surgical History History of adenoidectomy History of appendectomy History of cardiac cath History of carpal tunnel release History of cataract surgery History of cholecystectomy History of colonoscopy History of esophagogastroduodenoscopy (EGD) History of hysterectomy History of mitral valve repair History of tonsillectomy Hx of lumpectomy Hx of tubal ligation Hx of umbilical hernia repair S/P trigger finger release Family History Mother Family history of diabetes mellitus Sister Family history of diabetes mellitus Ulcerative colitis Social History Smoking Status: Current every day smoker Tobacco Type: Cigarettes Cigarettes Per Day: 8; Second Hand Exposure: No; Hx Alcohol Use: No Hx Substance Use: No Preferred Language: Maori Communication Ability: Effective Visual Impairment: No Limitations Bilingual Loan Processor Required: No Beliefs That Will Affect Care: None marital status: / Current Living Situation: Alone Current Living Situation Comment: APARTMENT Feels Safe at Home: Yes Assistive Devices: Oxygen - Continuous Allergies Allergies Allergy/AdvReac Type Severity Reaction Status Date / Time bee venom protein (honey bee) Allergy Severe SWELLING Verified 02/19/21 00:09 lisinopril Allergy Severe ANGIOEDEMA, Verified 02/19/21 00:09 FACIAL CELLULITIS, RASH strawberry Allergy Severe LIPS, Verified 02/19/21 00:09 TONGUE, FACE SWELLS alprazolam Allergy Intermediate RED FACE, Verified 02/19/21 00:09 FACE SWELLING alendronate sodium Allergy Unknown ON [facility] MED Verified 02/19/21 00:09 LIST colesevelam AdvReac Intermediate Abdominal Verified 02/19/21 00:09 Pain lactose AdvReac Intermediate VOMTING Verified 02/19/21 00:09 DIARRHEA ABDOMINAL PAIN-LACTOSE INTOLERANCE lithium AdvReac Intermediate jitters Verified 02/19/21 00:09 metronidazole AdvReac Intermediate ABD PAIN, Verified 02/19/21 00:09 WEAKNESS, NAUSEA, VOMITING prednisone AdvReac Mild AGGRESSIVE Verified 02/19/21 00:09 BEHAVIOR Home Meds Home Medications Medication Instructions Recorded Confirmed Spiriva with HandiHaler 1 cap INHALATION QAM 06/19/18 02/19/21 atorvastatin 40 mg PO HS 06/19/18 02/18/21 cetirizine 10 mg PO HS 06/19/18 02/18/21 cholecalciferol (vitamin D3) 1,000 unit PO QAM 06/19/18 02/18/21 [Vitamin D3] docusate sodium 100 mg PO BID 06/19/18 02/19/21 epinephrine [EpiPen] 0.3 mg IM DIRECTED PRN 06/19/18 02/19/21 fentanyl 50 mcg TRANSDERMAL [id number] 06/19/18 02/19/21 methocarbamol 750 mg PO TID 06/19/18 02/19/21 multivitamin 1 tab PO QAM 06/19/18 02/19/21 ondansetron 8 mg PO BID PRN 06/19/18 02/19/21 venlafaxine 150 mg PO QAM 06/19/18 02/19/21 trazodone 200 mg PO HS 09/14/18 02/19/21 venlafaxine 75 mg PO QAM 09/14/18 02/19/21 zolpidem 5 mg PO HS 09/14/18 02/19/21 gabapentin 800 mg PO BID 05/28/19 02/19/21 Lantus U-100 Insulin 18 unit SUBCUT BID 03/02/20 02/19/21 potassium chloride 40 meq PO DAILY 03/02/20 02/19/21 levalbuterol HCl 1.25 mg INHALATION Q4H PRN 03/24/20 02/19/21 nitroglycerin [Nitrostat] 0.4 mg SUBLINGUAL DIRECTED PRN 07/02/20 02/19/21 oxycodone 10 mg PO Q6H PRN 07/02/20 02/19/21 fluticasone propion-salmeterol 1 inh INHALATION BID 08/01/20 02/19/21 [Advair Diskus] calcitriol 0.25 mcg PO 3XWK 10/21/20 02/18/21 Gaviscon 1 tab PO TID PRN 11/08/20 02/19/21 acetaminophen 500 mg PO Q6H PRN 11/08/20 02/18/21 amitriptyline 50 mg PO HS 11/08/20 02/19/21 benzonatate 100 mg PO TID PRN 11/08/20 02/18/21 furosemide 80 mg PO BID 11/08/20 02/19/21 melatonin 10 mg PO HS 11/08/20 02/19/21 metoprolol succinate 100 mg PO BID 11/08/20 02/19/21 pantoprazole 40 mg PO DAILYBB 11/08/20 02/19/21 polyethylene glycol 3350 17 g PO DAILY 11/08/20 02/19/21 prochlorperazine maleate 10 mg PO Q6H PRN 11/08/20 02/19/21 [Compazine] ammonium lactate 1 applic TOPICAL DAILY 01/04/21 02/18/21 digoxin 125 mcg PO 3XWK 01/04/21 02/19/21 diltiazem HCl 240 mg PO BID 01/04/21 02/19/21 levalbuterol tartrate [Xopenex HFA] 1 puff INHALATION Q4H PRN 01/04/21 02/19/21 nystatin 1 applic TOPICAL TID 01/04/21 02/19/21 apixaban [Eliquis] 5 mg PO BID 02/05/21 02/18/21 Previous Rx's Medication Instructions Recorded Eliquis 5 mg PO BID #60 tab 11/16/20 Results & Data (ED) Vital Signs Vital Signs - 24 hr 02/18/21 22:51 02/18/21 22:53 02/18/21 23:04 Temperature 36.8 C Temperature Source Oral Pulse Rate 80 80 Pulse Rate [Right Apical] Pulse Rate from SpO2 Sensor 80 Pulse Rhythm Regular Pulse Strength Normal Respiratory Rate 22 18 Respiratory Effort / Characteristics Non-Labored Spontaneous Short of Breath SOB on Exertion Respiratory Depth Normal Blood Pressure 135/64 135/64 Blood Pressure Mean 87 87 Blood Pressure Position Sitting Pulse Oximetry 93 94 Oxygen Delivery Method Nasal Cannula Nasal Cannula Oxygen Flow Rate 2 2 Sepsis Recent Fever Within 48 Hours No Sepsis New/Unexplained Change in Mental Status No Sepsis Action Taken by Nursing No Action Required Oxygen Flow Rate - Titration 2 Pulse Oximetry Post Tiitration 98 02/18/21 23:38 02/19/21 00:00 02/19/21 00:23 Temperature Temperature Source Pulse Rate 59 L 68 Pulse Rate [Right Apical] 79 Pulse Rate from SpO2 Sensor 60 65 Pulse Rhythm Pulse Strength Respiratory Rate 18 18 13 Respiratory Effort / Characteristics Spontaneous Respiratory Depth Blood Pressure 160/80 H 123/63 Blood Pressure Mean 106 83 Blood Pressure Position Pulse Oximetry 92 95 95 Oxygen Delivery Method Nasal Cannula Oxygen Flow Rate 2 Sepsis Recent Fever Within 48 Hours Sepsis New/Unexplained Change in Mental Status Sepsis Action Taken by Nursing Oxygen Flow Rate - Titration Pulse Oximetry Post Tiitration 02/19/21 00:30 02/19/21 01:00 02/19/21 01:30 Temperature Temperature Source Pulse Rate 59 L 70 76 Pulse Rate [Right Apical] Pulse Rate from SpO2 Sensor 59 L 72 73 Pulse Rhythm Pulse Strength Respiratory Rate 17 15 16 Respiratory Effort / Characteristics Respiratory Depth Blood Pressure 126/57 L 125/49 L 114/49 L Blood Pressure Mean 80 74 70 Blood Pressure Position Pulse Oximetry 94 95 94 Oxygen Delivery Method Oxygen Flow Rate Sepsis Recent Fever Within 48 Hours Sepsis New/Unexplained Change in Mental Status Sepsis Action Taken by Nursing Oxygen Flow Rate - Titration Pulse Oximetry Post Tiitration 02/19/21 02:00 02/19/21 02:30 02/19/21 03:00 Temperature Temperature Source Pulse Rate 63 64 58 L Pulse Rate [Right Apical] Pulse Rate from SpO2 Sensor 66 63 59 L Pulse Rhythm Pulse Strength Respiratory Rate 15 15 17 Respiratory Effort / Characteristics Respiratory Depth Blood Pressure 109/57 L 100/44 L 89/49 L Blood Pressure Mean 74 62 62 Blood Pressure Position Pulse Oximetry 94 94 93 Oxygen Delivery Method Oxygen Flow Rate Sepsis Recent Fever Within 48 Hours Sepsis New/Unexplained Change in Mental Status Sepsis Action Taken by Nursing Oxygen Flow Rate - Titration Pulse Oximetry Post Tiitration 02/19/21 03:30 02/19/21 04:00 02/19/21 04:30 Temperature Temperature Source Pulse Rate 59 L 65 59 L Pulse Rate [Right Apical] Pulse Rate from SpO2 Sensor 58 L 69 59 L Pulse Rhythm Pulse Strength Respiratory Rate 16 12 15 Respiratory Effort / Characteristics Respiratory Depth Blood Pressure 108/61 131/63 99/60 L Blood Pressure Mean 76 85 73 Blood Pressure Position Pulse Oximetry 94 97 94 Oxygen Delivery Method Oxygen Flow Rate Sepsis Recent Fever Within 48 Hours Sepsis New/Unexplained Change in Mental Status Sepsis Action Taken by Nursing Oxygen Flow Rate - Titration Pulse Oximetry Post Tiitration Laboratory Data Result diagrams: 02/18/21 23:20 02/18/21 23:20 Lab Results 02/18/21 02/18/21 02/18/21 Range/Units 23:20 23:20 23:20 WBC 9.55 (4.8-10.8) K/uL RBC 4.32 (4.2-5.4) M/uL Hgb 13.2 (12.0-16.0) g/dL Hct 39.9 (37-47) % MCV 92.4 (80-100) fL MCH 30.6 (25-34) pg MCHC 33.1 (32-36) g/dL RDW Std Deviation 57.0 H (36.4-46.3) fL RDW Coeff of King 16.7 H (11.5-14.5) % Plt Count 295 (130-400) K/uL MPV 9.3 (7.4-10.4) fL Immature Gran % (Auto) 0.3 % Neut % (Auto) 71.2 % Lymph % (Auto) 20.2 % Kemper % (Auto) 7.1 % Eos % (Auto) 1.0 % Baso % (Auto) 0.2 % Neut # (Auto) 6.79 H (1.4-6.5) K/uL Lymph # (Auto) 1.93 (1.2-3.4) K/uL Kemper # (Auto) 0.68 H (0.11-0.59) K/uL Eos # (Auto) 0.10 (0-0.5) K/uL Baso # (Auto) 0.02 (0-0.2) K/uL Immature Gran # (Auto) 0.03 H (0.00-0.02) K/uL APTT 29.1 (21.0-31.0) Seconds PTT Ratio 1.1 Sodium 136 (136-145) mmol/L Potassium 3.7 (3.5-5.1) mmol/L Chloride 99 (98-107) mmol/L Carbon Dioxide 27 (21-32) mmol/L Anion Gap 10.0 (3-11) BUN 20 H (7-18) mg/dl Creatinine 1.47 H (0.6-1.2) mg/dl Est Cr Clr Drug Dosing 41.8 ml/min Est GFR ( Amer) 43.3 ml/min Est GFR (Non-Af Amer) 37.3 ml/min BUN/Creatinine Ratio 13.8 (10-20) Glucose 139 H (70-99) mg/dl Calcium 9.0 (8.5-10.1) mg/dl Magnesium (1.8-2.4) mg/dl Total Bilirubin 0.3 (0.2-1) mg/dl AST 18 (15-37) U/L ALT 20 (12-78) U/L Alkaline Phosphatase 80 (45-117) U/L Total Creatine Kinase 104 (26-192) U/L CK-MB (CK-2) 1.9 (0.5-3.6) ng/ml CK/CKMB % Calc 1.8 (0-3.0) Troponin I 0.020 (0-0.045) ng/ml NT-Pro-B Natriuret Pep 1905 H (0-900) pg/ml Total Protein 7.3 (6.4-8.2) gm/dl Albumin 2.9 L (3.4-5.0) gm/dl Globulin 4.4 H (2.5-4.0) gm/dl Albumin/Globulin Ratio 0.7 L (0.9-2) Lipase 162 (73-393) U/L Urine Color Urine Appearance (Clear) Urine pH (4.5-7.5) Ur Specific Harriet (1.000-1.030) Urine Protein (Negative) Urine Glucose (UA) (Negative) Urine Ketones (Negative) Urine Blood (Negative) Urine Nitrite (Negative) Urine Bilirubin (Negative) Urine Urobilinogen (Negative) Ur Leukocyte Esterase (Negative) Urine WBC (Auto) (0-5) /hpf Urine RBC (Auto) (0-4) /hpf U Hyaline Cast (Auto) (0-5) /lpf U Epithel Cells (Auto) (0-5) /lpf Urine Bacteria (Auto) (Negative) COVID-19 Eval Order SARS-CoV-2 (PCR) (Negative) 02/18/21 02/18/21 02/18/21 Range/Units 23:20 23:20 23:20 WBC (4.8-10.8) K/uL RBC (4.2-5.4) M/uL Hgb (12.0-16.0) g/dL Hct (37-47) % MCV (80-100) fL MCH (25-34) pg MCHC (32-36) g/dL RDW Std Deviation (36.4-46.3) fL RDW Coeff of King (11.5-14.5) % Plt Count (130-400) K/uL MPV (7.4-10.4) fL Immature Gran % (Auto) % Neut % (Auto) % Lymph % (Auto) % Kemper % (Auto) % Eos % (Auto) % Baso % (Auto) % Neut # (Auto) (1.4-6.5) K/uL Lymph # (Auto) (1.2-3.4) K/uL Kemper # (Auto) (0.11-0.59) K/uL Eos # (Auto) (0-0.5) K/uL Baso # (Auto) (0-0.2) K/uL Immature Gran # (Auto) (0.00-0.02) K/uL APTT (21.0-31.0) Seconds PTT Ratio Sodium (136-145) mmol/L Potassium (3.5-5.1) mmol/L Chloride (98-107) mmol/L Carbon Dioxide (21-32) mmol/L Anion Gap (3-11) BUN (7-18) mg/dl Creatinine (0.6-1.2) mg/dl Est Cr Clr Drug Dosing ml/min Est GFR ( Amer) ml/min Est GFR (Non-Af Amer) ml/min BUN/Creatinine Ratio (10-20) Glucose (70-99) mg/dl Calcium (8.5-10.1) mg/dl Magnesium (1.8-2.4) mg/dl Total Bilirubin (0.2-1) mg/dl AST (15-37) U/L ALT (12-78) U/L Alkaline Phosphatase (45-117) U/L Total Creatine Kinase (26-192) U/L CK-MB (CK-2) (0.5-3.6) ng/ml CK/CKMB % Calc (0-3.0) Troponin I (0-0.045) ng/ml NT-Pro-B Natriuret Pep (0-900) pg/ml Total Protein (6.4-8.2) gm/dl Albumin (3.4-5.0) gm/dl Globulin (2.5-4.0) gm/dl Albumin/Globulin Ratio (0.9-2) Lipase (73-393) U/L Urine Color Yellow Urine Appearance Clear (Clear) Urine pH 5.0 (4.5-7.5) Ur Specific Harriet 1.008 (1.000-1.030) Urine Protein Trace H (Negative) Urine Glucose (UA) Trace H (Negative) Urine Ketones Negative (Negative) Urine Blood Trace H (Negative) Urine Nitrite Negative (Negative) Urine Bilirubin Negative (Negative) Urine Urobilinogen Negative (Negative) Ur Leukocyte Esterase Negative (Negative) Urine WBC (Auto) 1-5 (0-5) /hpf Urine RBC (Auto) 0-4 (0-4) /hpf U Hyaline Cast (Auto) 1-5 (0-5) /lpf U Epithel Cells (Auto) >30 H (0-5) /lpf Urine Bacteria (Auto) Negative (Negative) COVID-19 Eval Order Covid19 at [facility] SARS-CoV-2 (PCR) POSITIVE A* (Negative) 02/19/21 Range/Units 01:52 WBC (4.8-10.8) K/uL RBC (4.2-5.4) M/uL Hgb (12.0-16.0) g/dL Hct (37-47) % MCV (80-100) fL MCH (25-34) pg MCHC (32-36) g/dL RDW Std Deviation (36.4-46.3) fL RDW Coeff of King (11.5-14.5) % Plt Count (130-400) K/uL MPV (7.4-10.4) fL Immature Gran % (Auto) % Neut % (Auto) % Lymph % (Auto) % Kemper % (Auto) % Eos % (Auto) % Baso % (Auto) % Neut # (Auto) (1.4-6.5) K/uL Lymph # (Auto) (1.2-3.4) K/uL Kemper # (Auto) (0.11-0.59) K/uL Eos # (Auto) (0-0.5) K/uL Baso # (Auto) (0-0.2) K/uL Immature Gran # (Auto) (0.00-0.02) K/uL APTT (21.0-31.0) Seconds PTT Ratio Sodium (136-145) mmol/L Potassium (3.5-5.1) mmol/L Chloride (98-107) mmol/L Carbon Dioxide (21-32) mmol/L Anion Gap (3-11) BUN (7-18) mg/dl Creatinine (0.6-1.2) mg/dl Est Cr Clr Drug Dosing ml/min Est GFR ( Amer) ml/min Est GFR (Non-Af Amer) ml/min BUN/Creatinine Ratio (10-20) Glucose (70-99) mg/dl Calcium (8.5-10.1) mg/dl Magnesium 2.3 (1.8-2.4) mg/dl Total Bilirubin (0.2-1) mg/dl AST (15-37) U/L ALT (12-78) U/L Alkaline Phosphatase (45-117) U/L Total Creatine Kinase (26-192) U/L CK-MB (CK-2) (0.5-3.6) ng/ml CK/CKMB % Calc (0-3.0) Troponin I 0.023 (0-0.045) ng/ml NT-Pro-B Natriuret Pep (0-900) pg/ml Total Protein (6.4-8.2) gm/dl Albumin (3.4-5.0) gm/dl Globulin (2.5-4.0) gm/dl Albumin/Globulin Ratio (0.9-2) Lipase (73-393) U/L Urine Color Urine Appearance (Clear) Urine pH (4.5-7.5) Ur Specific Harriet (1.000-1.030) Urine Protein (Negative) Urine Glucose (UA) (Negative) Urine Ketones (Negative) Urine Blood (Negative) Urine Nitrite (Negative) Urine Bilirubin (Negative) Urine Urobilinogen (Negative) Ur Leukocyte Esterase (Negative) Urine WBC (Auto) (0-5) /hpf Urine RBC (Auto) (0-4) /hpf U Hyaline Cast (Auto) (0-5) /lpf U Epithel Cells (Auto) (0-5) /lpf Urine Bacteria (Auto) (Negative) COVID-19 Eval Order SARS-CoV-2 (PCR) (Negative) Administered Medications Heparin Sodium/Dextrose (Heparin Sodium/Dextrose) 25,000 units in 500 mls @ 25 mls/hr IV .Q20H [facility]; Protocol Stop: 03/21/21 02:37 Last Admin: 02/19/21 04:36 Dose: 1,250 units/hr, 25 mls/hr Documented by: [id number] Cosigned by: [id number] Discontinued Medications Diphenhydramine HCl (Diphenhydramine 50 Mg/Ml Vial) 25 mg IV NOW STA Stop: 02/19/21 00:54 Last Admin: 02/19/21 01:11 Dose: 25 mg Documented by: [id number] Droperidol (Droperidol 5 Mg/2 Ml Vial) 0.625 mg IV ONE STA Stop: 02/19/21 00:54 Last Admin: 02/19/21 01:11 Dose: 0.625 mg Documented by: [id number] Furosemide (Furosemide 40 Mg/4 Ml Vial) 40 mg IV NOW STA Stop: 02/18/21 23:37 Last Admin: 02/19/21 00:14 Dose: 40 mg Documented by: [id number] Heparin Sodium/Dextrose (Heparin Iv Adult Wt-Based Standard *No* Bolus Protocol) 1 ea IV ONE STA; Protocol Stop: 02/19/21 02:36 Last Admin: 02/19/21 04:35 Dose: Not Given Documented by: [id number] Acetaminophen (Ofirmev) 1,000 mg in 100 mls @ 400 mls/hr IV NOW STA Stop: 02/19/21 01:07 Last Infusion: 02/19/21 02:45 Dose: 0 mls/hr Documented by: [id number] Admin: 02/19/21 01:10 Dose: 400 mls/hr Documented by: [id number] Magnesium Sulfate/Dextrose (Magnesium Sulfate / D5w) 1 gm in 100 mls @ 100 mls/hr IV NOW STA Stop: 02/19/21 01:52 Last Infusion: 02/19/21 02:45 Dose: 0 mls/hr Documented by: [id number] Admin: 02/19/21 01:12 Dose: 100 mls/hr Documented by: [id number] Levalbuterol HCl (Levalbuterol Hcl 1.25 Mg/3 Ml Neb) 1.25 mg NEB NOW STA Stop: 02/18/21 23:04 Last Admin: 02/18/21 23:38 Dose: 1.25 mg Documented by: [id number] Nitroglycerin (Nitroglycerin 2% Ointment 30gm Tube) 1 inch EXT NOW STA Stop: 02/18/21 23:10 Last Admin: 02/19/21 00:15 Dose: 1 inch Documented by: [id number] Discharge Plan Visit Data Chief Complaint: Chest Pain Stated Complaint: CHEST PAIN ED Provider: Wil Coffman Discharge Problem: Chest pain, Atrial flutter Discharge Instructions Interventions: ED Discharge Assessment Last Done: 02/19/21 04:33 Forms Stand Alone Forms: [facility] Prescriptions Prescriptions: No Action gabapentin 800 mg Tablet 800 mg PO BID RF: 0 potassium chloride 10 mEq tablet extended release 40 meq PO DAILY RF: 0 Lantus U-100 Insulin 100 unit/mL solution 18 unit SUBCUT BID RF: 0 oxycodone 10 mg tablet 10 mg PO Q6H PRN (Reason: Pain) RF: 0 nitroglycerin [Nitrostat] 0.4 mg tablet, sublingual 0.4 mg sublingual DIRECTED PRN (Reason: Chest Pain) RF: 0 multivitamin Tablet 1 tab PO QAM RF: 0 atorvastatin 40 mg Tablet 40 mg PO HS RF: 0 fentanyl 50 mcg/hr Patch 72 Hour 50 mcg TRANSDERMAL [id number] RF: 0 cetirizine 10 mg Tablet 10 mg PO HS RF: 0 venlafaxine 150 mg Capsule,Extended Release 24hr 150 mg PO QAM RF: 0 ondansetron 8 mg Tablet,Disintegrating 8 mg PO BID PRN (Reason: Nausea) RF: 0 methocarbamol 750 mg Tablet 750 mg PO TID RF: 0 epinephrine [EpiPen] 0.3 mg/0.3 mL Auto-Injector 0.3 mg IM DIRECTED PRN (Reason: Allergic Reaction) RF: 0 docusate sodium 100 mg Tablet 100 mg PO BID RF: 0 Spiriva with HandiHaler 18 mcg Capsule, W/Inhalation Device 1 cap INHALATION QAM RF: 0 cholecalciferol (vitamin D3) [Vitamin D3] 1,000 unit Tablet 1,000 unit PO QAM RF: 0 venlafaxine 75 mg Capsule,Extended Release 24hr 75 mg PO QAM RF: 0 trazodone 100 mg Tablet 200 mg PO HS RF: 0 zolpidem 5 mg Tablet 5 mg PO HS RF: 0 levalbuterol HCl 1.25 mg/3 mL solution for nebulization 1.25 mg INHALATION Q4H PRN (Reason: Wheezing) RF: 0 fluticasone propion-salmeterol [Advair Diskus] 250-50 mcg/dose blister with device 1 inh INHALATION BID RF: 0 calcitriol 0.25 mcg capsule 0.25 mcg PO 3XWK RF: 0 acetaminophen 500 mg Tablet 500 mg PO Q6H PRN (Reason: Pain, Mild/Moderate) RF: 0 pantoprazole 40 mg tablet,delayed release (DR/EC) 40 mg PO DAILYBB RF: 0 metoprolol succinate 100 mg tablet extended release 24 hr 100 mg PO BID RF: 0 Gaviscon 80-14.2 mg tablet,chewable 1 tab PO TID PRN (Reason: Reflux) RF: 0 prochlorperazine maleate [Compazine] 10 mg Tablet 10 mg PO Q6H PRN (Reason: Nausea) RF: 0 amitriptyline 50 mg Tablet 50 mg PO HS RF: 0 benzonatate 100 mg Capsule 100 mg PO TID PRN (Reason: Cough) RF: 0 polyethylene glycol 3350 17 gram/dose Powder 17 g PO DAILY RF: 0 melatonin 10 mg Tablet 10 mg PO HS RF: 0 furosemide 40 mg tablet 80 mg PO BID RF: 0 Eliquis 5 mg tablet 5 mg PO BID Qty: 60 RF: 0 Eliquis 5 mg tablet 5 mg PO BID RF: 0 ammonium lactate 12 % Cream 1 applic TOPICAL DAILY RF: 0 digoxin 125 mcg (0.125 mg) tablet 125 mcg PO 3XWK RF: 0 nystatin 100,000 unit/gram Powder 1 applic TOPICAL TID RF: 0 levalbuterol tartrate [Xopenex HFA] 45 mcg/actuation Hfa Aerosol Inhaler 1 puff INHALATION Q4H PRN (Reason: WHEEZING, IF NEB NOT AVAILABLE.) RF: 0 diltiazem HCl 240 mg capsule,extended release 24hr 240 mg PO BID RF: 0 Referrals Referrals: Manoj Goins DO [Primary Care Provider] - Discharge Problem: Chest pain Qualifiers: Chest pain type: unspecified Qualified Code(s): R07.9 - Chest pain, unspecified Atrial flutter Qualifiers: Atrial flutter type: typical Qualified Code(s): I48.3 - Typical atrial flutter
[2021-02-18] MEDS ORDERED: NITROGLYCERIN 2% OINTMENT 30GM TUBE EXT STA (23:09)
[2021-02-18] MEDS ORDERED: FUROSEMIDE 40 MG/4 ML VIAL IV STA (23:36)
[2021-02-18 23:48] LABS: Basophils # (auto) 0.02 K/uL (0-0.2); Basophils % (auto) 0.2 %; Hematocrit (blood only) 39.9 % (37-47); Hemoglobin 13.2 g/dL (12.0-16.0); Immature Granulocytes # (auto) 0.03 K/uL (0.00-0.02); Immature Granulocytes % (auto) 0.3 %; Lymphocytes # (auto) 1.93 K/uL (1.2-3.4); Lymphocytes % (auto) 20.2 %; Mean Corpuscular Hemoglobin 30.6 pg (25-34); Mean Corpuscular Hgb Conc 33.1 g/dL (32-36); Mean Corpuscular Volume 92.4 fL (80-100); Mean Platelet Volume 9.3 fL (7.4-10.4); Monocytes # (auto) 0.68 K/uL (0.11-0.59); Monocytes % (auto) 7.1 %; Neutrophils # (auto) 6.79 K/uL (1.4-6.5); Neutrophils % (auto) 71.2 %; Platelet Count 295 K/uL (130-400); RDW Coefficient of Variation 16.7 % (11.5-14.5); Red Blood Count 4.32 M/uL (4.2-5.4); White Blood Count 9.55 K/uL (4.8-10.8)
[2021-02-18 23:51] LABS: Appearance Urine Clear (Clear); Bacteria Urine Automated Negative (Negative); Bilirubin Urine Negative (Negative); Blood Urine Trace (Negative); Color Urine Yellow; Epithelial Cell Urine Auto >30 /lpf (0-5); Glucose Urine UA Trace (Negative); Ketones Urine Negative (Negative); Leukocyte Esterase Urine Negative (Negative); Nitrite Urine Negative (Negative); Protein Urine Trace (Negative); RBC Urine Automated 0-4 /hpf (0-4); Specific Gravity Urine 1.008 (1.000-1.030); Urobilinogen Urine Negative (Negative)
[2021-02-18 23:59] LABS: Partial Thromboplastin Ratio 1.1; Partial Thromboplastin Time 29.1 Seconds (21.0-31.0)
[2021-02-19 00:05] LABS: Albumin Level 2.9 gm/dl (3.4-5.0); BUN Creatinine Ratio 13.8 (10-20); Creatinine Clr Calc Pharmacy 41.8 ml/min; Est GFR (African American) 43.3 ml/min; Est GFR (Non-African American) 37.3 ml/min; Potassium 3.7 mmol/L (3.5-5.1)
[2021-02-19 00:10] LABS: Albumin Globulin Ratio 0.7 (0.9-2); Bilirubin,Total 0.3 mg/dl (0.2-1); Creatine Kinase MB 1.9 ng/ml (0.5-3.6); Globulin 4.4 gm/dl (2.5-4.0); Total Protein 7.3 gm/dl (6.4-8.2); Troponin I 0.02 ng/ml (0-0.045)
[2021-02-19] MEDS ORDERED: diphenhydrAMINE 50 MG/ML VIAL IV STA (00:53)
[2021-02-19] MEDS ORDERED: MAGNESIUM SULFATE / D5W 1 GM/100 ML BAG IV STA (00:53)
[2021-02-19] MEDS ORDERED: DROPERIDOL 5 MG/2 ML VIAL IV STA (00:53)
[2021-02-19] MEDS ORDERED: ACETAMINOPHEN 1,000 MG/100 ML VIAL IV STA (00:53)
--- NOTE | 2021-02-19 02:12 | History & Physical Report ---
Date of Service February 19, 2021 Assessment & Plan (1) NSTEMI (non-ST elevated myocardial infarction): hx atrial flutter status post ablation, rate controlled on Eliquis chronic diastolic heart failure (EF 65-70%, TTE 2019), congestion on CXR Musculoskeletal component to chest pain given reproducibility. HTN, slightly elevated chronic respiratory failure secondary to COPD/pulmonary hypertension on home O2 DARIUS on BiPAP Pulmonary status at baseline hx CVA as per records, chronic pain on narcotics DM2 insulin requiring, suboptimal control as of recent outpatient hemoglobin A1c of 8.2, January 2021 CRI creatinine at baseline anxiety/mood disorder, at baseline History medication noncompliance hx positive COVID-19 test, patient without new infectious/respiratory symptoms ongoing tobacco abuse PCU Aspirin for CAD prevention; continue home beta-mana, statin Rx; initiate IV heparin Follow troponin Cardiology consult in a.m. RE NSTEMI N.p.o. until patient seen by cardiology in a.m. Hold Eliquis while on IV heparin Continue home Lasix Basal insulin adjusted for n.p.o. status for now, ISS BG goal [id number], carb count coverage once diet advanced Nicotine patch DVT prophylaxis. IV heparin Full code Text document was generated using [employer] voice recognition software. It may contain grammatical or spelling errors. Kindly contact undersigned for clarification of any documentation item in question. History of Present Illness Chief Complaint: Chest pain, shortness of breath Primary Care Provider: Manoj Goins DO History obtained from patient and records. Medical history is significant for chronic diastolic heart failure, EF of 65-70% (TTE 2019), atrial flutter status post ablation on Eliquis, cardiac fibroblastoma status post surgery, HTN, hyperlipidemia, chronic respiratory failure secondary to COPD on home O2, DARIUS on BIPAP, history of pulmonary hypertension, ongoing tobacco abuse, hx CVA as per records, chronic pain on narcotics, DM2 insulin requiring, CRI (baseline crea 1.4-1.5), gastroparesis per records, anxiety/mood disorder, past hx COVID-19 illness. Recent confinement January 2021 for respiratory failure, decompensated heart failure, rapid A. fib. Recent outpatient [facility] EPS evaluation 5 days ago for palpitations. Last night patient was in bed when she noted substernal heaviness with shortness of breath. Usual cough symptoms. Denies new flulike symptoms. Patient compliant with home meds. Gets this chest pain from time to time as per patient. Chest pain relieved by nitroglycerin administered at the ER. Lasix given at the ER for pulmonary congestion. Patient complained of intense headache after Nitropaste administration. Nitro subsequently removed. Tylenol administered. Patient currently comfortable. MEDICAL HISTORY: As above. SURGERIES: She has had hysterectomy, appendectomy, cholecystectomy, lumpectomy, mitral valve repair, tubal ligation, umbilical hernia repair, carpal tunnel surgery, Ear surgery, section, FAMILY HISTORY: Heart disease. IBD, diabetes PERSONAL AND SOCIAL HISTORY: Eight cigarettes a day, disabled, no chronic intake of alcoholic beverages. Allergies Allergy/AdvReac Type Severity Reaction Status Date / Time bee venom protein (honey bee) Allergy Severe SWELLING Verified 02/19/21 00:09 lisinopril Allergy Severe ANGIOEDEMA, Verified 02/19/21 00:09 FACIAL CELLULITIS, RASH strawberry Allergy Severe LIPS, Verified 02/19/21 00:09 TONGUE, FACE SWELLS alprazolam Allergy Intermediate RED FACE, Verified 02/19/21 00:09 FACE SWELLING alendronate sodium Allergy Unknown ON [facility] MED Verified 02/19/21 00:09 LIST colesevelam AdvReac Intermediate Abdominal Verified 02/19/21 00:09 Pain lactose AdvReac Intermediate VOMTING Verified 02/19/21 00:09 DIARRHEA ABDOMINAL PAIN-LACTOSE INTOLERANCE lithium AdvReac Intermediate jitters Verified 02/19/21 00:09 metronidazole AdvReac Intermediate ABD PAIN, Verified 02/19/21 00:09 WEAKNESS, NAUSEA, VOMITING prednisone AdvReac Mild AGGRESSIVE Verified 02/19/21 00:09 BEHAVIOR Home Medications Medication Instructions Recorded Confirmed Type Spiriva with HandiHaler 1 cap INHALATION QAM 06/19/18 02/19/21 History atorvastatin 40 mg PO HS 06/19/18 02/18/21 History cetirizine 10 mg PO HS 06/19/18 02/18/21 History cholecalciferol (vitamin D3) 1,000 unit PO QAM 06/19/18 02/18/21 History [Vitamin D3] docusate sodium 100 mg PO BID 06/19/18 02/19/21 History epinephrine [EpiPen] 0.3 mg IM DIRECTED PRN 06/19/18 02/19/21 History fentanyl 50 mcg TRANSDERMAL [id number] 06/19/18 02/19/21 History methocarbamol 750 mg PO TID 06/19/18 02/19/21 History multivitamin 1 tab PO QAM 06/19/18 02/19/21 History ondansetron 8 mg PO BID PRN 06/19/18 02/19/21 History venlafaxine 150 mg PO QAM 06/19/18 02/19/21 History trazodone 200 mg PO HS 09/14/18 02/19/21 History venlafaxine 75 mg PO QAM 09/14/18 02/19/21 History zolpidem 5 mg PO HS 09/14/18 02/19/21 History gabapentin 800 mg PO BID 05/28/19 02/19/21 History Lantus U-100 Insulin 18 unit SUBCUT BID 03/02/20 02/19/21 History potassium chloride 40 meq PO DAILY 03/02/20 02/19/21 History levalbuterol HCl 1.25 mg INHALATION Q4H PRN 03/24/20 02/19/21 History nitroglycerin [Nitrostat] 0.4 mg SUBLINGUAL DIRECTED PRN 07/02/20 02/19/21 History oxycodone 10 mg PO Q6H PRN 07/02/20 02/19/21 History fluticasone propion-salmeterol 1 inh INHALATION BID 08/01/20 02/19/21 History [Advair Diskus] calcitriol 0.25 mcg PO 3XWK 10/21/20 02/18/21 History Gaviscon 1 tab PO TID PRN 11/08/20 02/19/21 History acetaminophen 500 mg PO Q6H PRN 11/08/20 02/18/21 History amitriptyline 50 mg PO HS 11/08/20 02/19/21 History benzonatate 100 mg PO TID PRN 11/08/20 02/18/21 History furosemide 80 mg PO BID 11/08/20 02/19/21 History melatonin 10 mg PO HS 11/08/20 02/19/21 History metoprolol succinate 100 mg PO BID 11/08/20 02/19/21 History pantoprazole 40 mg PO DAILYBB 11/08/20 02/19/21 History polyethylene glycol 3350 17 g PO DAILY 11/08/20 02/19/21 History prochlorperazine maleate 10 mg PO Q6H PRN 11/08/20 02/19/21 History [Compazine] Eliquis 5 mg PO BID #60 tab 11/16/20 02/19/21 Rx ammonium lactate 1 applic TOPICAL DAILY 01/04/21 02/18/21 History digoxin 125 mcg PO 3XWK 01/04/21 02/19/21 History diltiazem HCl 240 mg PO BID 01/04/21 02/19/21 History levalbuterol tartrate [Xopenex HFA] 1 puff INHALATION Q4H PRN 01/04/21 02/19/21 History nystatin 1 applic TOPICAL TID 01/04/21 02/19/21 History apixaban [Eliquis] 5 mg PO BID 02/05/21 02/18/21 History Past Med/Surg History Medical History Abnormal CT scan, chest Anxiety Asthma 3LPM via n/c mostly continuous (although patient states she does not wear this all the time) Atrial fibrillation a. fib/a. flutter s/p cardioversion (2016) Atrial flutter [place] esophagus Bipolar disorder Chronic back pain Chronic cor pulmonale Chronic hyponatremia Chronic kidney disease stage III Chronic obstructive pulmonary disease 3LPM via n/c mostly continuous (although patient states she does not wear this all the time) Chronic pain Chronic respiratory failure Chronic respiratory failure with hypoxia, on home oxygen therapy CKD (chronic kidney disease), stage III Compression fracture of T3 vertebra COVID-19 virus detected + 10/11/20 COVID-19 virus infection CVA (cerebral vascular accident) 2004 (per records; patient denies) Depression Diastolic CHF, chronic DM type 2 (diabetes mellitus, type 2) Fibromyalgia Gastroparesis GERD (gastroesophageal reflux disease) History of cardioversion History of Clostridium difficile infection History of DVT (deep vein thrombosis) left "hand" 2005- on AC HTN (hypertension) Hyperlipidemia Hypothyroidism no current medication per doctor orders. 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 Obesity Osteoarthritis Peripheral neuropathy Post traumatic stress disorder Pulmonary HTN Severe obstructive sleep apnea Surgical History History of adenoidectomy History of appendectomy LAPAROSCOPY History of cardiac cath 2005= no stents History of carpal tunnel release left History of cataract surgery BILATERAL History of cholecystectomy LAPAROSCOPY History of colonoscopy History of esophagogastroduodenoscopy (EGD) History of hysterectomy EMIGDIO WITH BSO History of mitral valve repair 2005 + resection fibroelastoma History of tonsillectomy Hx of lumpectomy right breast BENIGN Hx of tubal ligation Hx of umbilical hernia repair S/P trigger finger release RIGHT/LEFT Family History Mother Family history of diabetes mellitus Sister Family history of diabetes mellitus Ulcerative colitis Social History Smoking Status: Current every day smoker Tobacco Type: Cigarettes Cigarettes Per Day: 10; Second Hand Exposure: No; Hx Alcohol Use: No Hx Substance Use: No Preferred Language: Turkish Communication Ability: Effective Visual Impairment: No Limitations [employer] Required: No Beliefs That Will Affect Care: None marital status: / Current Living Situation: Alone Current Living Situation Comment: APARTMENT Feels Safe at Home: Yes Safety Concerns: Feels Safe At This Time Assistive Devices: Oxygen - Continuous Review of Systems Review of Systems: As per HPI, all 10 systems reviewed, all other ROS negative Physical Exam Physical Exam: GENERAL: Comfortable, obese, slightly hard of hearing, no respiratory distress SKIN: Normal color, warm HEENT: [place] palpebral conjunctivae, no ptosis, dry buccal mucosa, nasal cannula in place NECK : Supple, short neck, no tenderness CHEST : Decreased breath sounds, scattered expiratory wheezes, anterior chest wall tenderness HEART : RRR, no obvious murmurs ABDOMEN: Some distention, nontender EXTREMITIES : Minimal LE swelling, no LE tenderness, no other conspicuous deformities noted NEUROLOGIC : Coherent, no facial asymmetry, mild hearing impairment, no other gross focality Results & Data Results & Data ([facility]) Vital Signs (Past 12 Hours) Vital Signs Temp Pulse Pulse Resp BP Pulse Ox 02/19/21 00:00 59 L 18 160/80 H 95 02/18/21 23:38 79 18 92 02/18/21 22:53 80 18 135/64 94 02/18/21 22:51 36.8 C 80 22 135/64 93 Laboratory Results Laboratory Results WBC 9.55 K/uL (4.8-10.8) 02/18/21 23:20 RBC 4.32 M/uL (4.2-5.4) 02/18/21 23:20 Hgb 13.2 g/dL (12.0-16.0) 02/18/21 23:20 Hct 39.9 % (37-47) 02/18/21 23:20 MCV 92.4 fL (80-100) 02/18/21 23:20 MCH 30.6 pg (25-34) 02/18/21 23:20 MCHC 33.1 g/dL (32-36) 02/18/21 23:20 RDW Std Deviation 57.0 fL (36.4-46.3) H 02/18/21 23:20 RDW Coeff of [place] 16.7 % (11.5-14.5) H 02/18/21 23:20 Plt Count 295 K/uL (130-400) 02/18/21 23:20 MPV 9.3 fL (7.4-10.4) 02/18/21 23:20 Immature Gran % (Auto) 0.3 % 02/18/21 23:20 Neut % (Auto) 71.2 % 02/18/21 23:20 Lymph % (Auto) 20.2 % 02/18/21 23:20 [place] % (Auto) 7.1 % 02/18/21 23:20 Eos % (Auto) 1.0 % 02/18/21 23:20 Baso % (Auto) 0.2 % 02/18/21 23:20 Neut # (Auto) 6.79 K/uL (1.4-6.5) H 02/18/21 23:20 Lymph # (Auto) 1.93 K/uL (1.2-3.4) 02/18/21 23:20 [place] # (Auto) 0.68 K/uL (0.11-0.59) H 02/18/21 23:20 Eos # (Auto) 0.10 K/uL (0-0.5) 02/18/21 23:20 Baso # (Auto) 0.02 K/uL (0-0.2) 02/18/21 23:20 Immature Gran # (Auto) 0.03 K/uL (0.00-0.02) H 02/18/21 23:20 APTT 29.1 Seconds (21.0-31.0) 02/18/21 23:20 PTT Ratio 1.1 02/18/21 23:20 Sodium 136 mmol/L (136-145) 02/18/21 23:20 Potassium 3.7 mmol/L (3.5-5.1) 02/18/21 23:20 Chloride 99 mmol/L (98-107) 02/18/21 23:20 Carbon Dioxide 27 mmol/L (21-32) 02/18/21 23:20 Anion Gap 10.0 (3-11) 02/18/21 23:20 BUN 20 mg/dl (7-18) H 02/18/21 23:20 Creatinine 1.47 mg/dl (0.6-1.2) H 02/18/21 23:20 Est Cr Clr Drug Dosing 41.8 ml/min 02/18/21 23:20 Est GFR ( Amer) 43.3 ml/min 02/18/21 23:20 Est GFR (Non-Af Amer) 37.3 ml/min 02/18/21 23:20 BUN/Creatinine Ratio 13.8 (10-20) 02/18/21 23:20 Glucose 139 mg/dl (70-99) H 02/18/21 23:20 Calcium 9.0 mg/dl (8.5-10.1) 02/18/21 23:20 Total Bilirubin 0.3 mg/dl (0.2-1) 02/18/21 23:20 AST 18 U/L (15-37) 02/18/21 23:20 ALT 20 U/L (12-78) 02/18/21 23:20 Alkaline Phosphatase 80 U/L (45-117) 02/18/21 23:20 Total Creatine Kinase 104 U/L (26-192) 02/18/21 23:20 CK-MB (CK-2) 1.9 ng/ml (0.5-3.6) 02/18/21 23:20 CK/CKMB % Calc 1.8 (0-3.0) 02/18/21 23:20 Troponin I 0.020 ng/ml (0-0.045) 02/18/21 23:20 NT-Pro-B Natriuret Pep 1905 pg/ml (0-900) H 02/18/21 23:20 Total Protein 7.3 gm/dl (6.4-8.2) 02/18/21 23:20 Albumin 2.9 gm/dl (3.4-5.0) L 02/18/21 23:20 Globulin 4.4 gm/dl (2.5-4.0) H 02/18/21 23:20 Albumin/Globulin Ratio 0.7 (0.9-2) L 02/18/21 23:20 Lipase 162 U/L (73-393) 02/18/21 23:20 Urine Color Yellow 02/18/21 23:20 Urine Appearance Clear (Clear) 02/18/21 23:20 Urine pH 5.0 (4.5-7.5) 02/18/21 23:20 Ur Specific [place] 1.008 (1.000-1.030) 02/18/21 23:20 Urine Protein Trace (Negative) H 02/18/21 23:20 Urine Glucose (UA) Trace (Negative) H 02/18/21 23:20 Urine Ketones Negative (Negative) 02/18/21 23:20 Urine Blood Trace (Negative) H 02/18/21 23:20 Urine Nitrite Negative (Negative) 02/18/21 23:20 Urine Bilirubin Negative (Negative) 02/18/21 23:20 Urine Urobilinogen Negative (Negative) 02/18/21 23:20 Ur Leukocyte Esterase Negative (Negative) 02/18/21 23:20 Urine WBC (Auto) 1-5 /hpf (0-5) 02/18/21 23:20 Urine RBC (Auto) 0-4 /hpf (0-4) 02/18/21 23:20 U Hyaline Cast (Auto) 1-5 /lpf (0-5) 02/18/21 23:20 U Epithel Cells (Auto) >30 /lpf (0-5) H 02/18/21 23:20 Urine Bacteria (Auto) Negative (Negative) 02/18/21 23:20 COVID-19 Eval Order Covid19 at [facility] 02/18/21 23:20 SARS-CoV-2 (PCR) POSITIVE (Negative) A* 02/18/21 23:20 Diagnostic Findings Chest x-ray as per my capitation cardiomegaly, congestion EKG as per my interpretation : Rate 60, atrial flutter, RBBB
[2021-02-19 02:22] LABS: Magnesium 2.3 mg/dl (1.8-2.4); Troponin I 0.023 ng/ml (0-0.045)
[2021-02-19] MEDS ORDERED: Heparin IV Adult Wt-Based Standard *NO* Bolus Protocol IV STA (02:35)
[2021-02-19] MEDS ORDERED: HEPARIN SODIUM/DEXTROSE 25,000 UNITS/500 ML BAG IV SCH (02:38)
[2021-02-19] MEDS ORDERED: PROMETHAZINE HCL 12.5 MG in SODIUM CHLORIDE 0.9% 50 ML IV PRN (05:32)
[2021-02-19] MEDS ORDERED: CARBOHYDRATES FOR HYPOGLYCEMIA PO PRN (05:32)
[2021-02-19] MEDS ORDERED: DEXTROSE 50% 50 ML SYRINGE IV PRN (05:32)
[2021-02-19] MEDS ORDERED: GLUCAGON FOR INJ 1 MG VIAL SQ PRN (05:32)
[2021-02-19] MEDS ORDERED: GLUCOSE 10 TABS/TUBE PO PRN (05:32)
[2021-02-19] MEDS ORDERED: ACETAMINOPHEN 325 MG TAB PO PRN (05:32)
[2021-02-19] MEDS ORDERED: GLUCOSE 40% GEL 15 GM TUBE PO PRN (05:32)
[2021-02-19] MEDS ORDERED: NITROGLYCERIN SL 0.4 MG/TAB TAB SL PRN (05:32)
[2021-02-19] MEDS ORDERED: oxyCODONE HCL IR 5 MG TAB (IMMEDIATE RELEASE) PO PRN (05:32)
[2021-02-19] MEDS ORDERED: MELATONIN 3 MG TAB PO PRN (05:41)
[2021-02-19] MEDS ORDERED: XOPENEX/ATROVENT 1.25mg/0.5MG NEB COMBO NEB PRN (06:16)
[2021-02-19] MEDS: INSULIN ASPART 100 UNITS/ML 3 ML PEN SC SCH ×3 (06:40→20:19)
[2021-02-19] MEDS: ASPIRIN 81 MG ECTAB PO SCH (06:40)
[2021-02-19] MEDS: PANTOprazole 40 MG TAB PO SCH (06:41)
[2021-02-19] MEDS: NICOTINE 14 MG/24 HR PATCH TD SCH (06:41)
[2021-02-19] MEDS ORDERED: LEVALBUTEROL 1.25MG/0.5ML NEB INH PRN (07:00)
[2021-02-19] MEDS ORDERED: IPRATROPIUM BROMIDE NEB SOLN 0.02% 2.5 ML VIAL INH PRN (07:00)
[2021-02-19 07:14] LABS: Basophils # (auto) 0.02 K/uL (0-0.2); Basophils % (auto) 0.3 %; Eosinophils # (auto) 0.18 K/uL (0-0.5); Eosinophils % (auto) 2.7 %; Hematocrit (blood only) 39.8 % (37-47); Immature Granulocytes # (auto) 0.01 K/uL (0.00-0.02); Immature Granulocytes % (auto) 0.1 %; Lymphocytes # (auto) 1.45 K/uL (1.2-3.4); Lymphocytes % (auto) 21.5 %; Mean Corpuscular Hemoglobin 29.7 pg (25-34); Mean Corpuscular Hgb Conc 32.7 g/dL (32-36); Mean Corpuscular Volume 90.9 fL (80-100); Mean Platelet Volume 9.4 fL (7.4-10.4); Monocytes # (auto) 0.46 K/uL (0.11-0.59); Monocytes % (auto) 6.8 %; Neutrophils # (auto) 4.61 K/uL (1.4-6.5); Neutrophils % (auto) 68.6 %; Platelet Count 281 K/uL (130-400); RDW Coefficient of Variation 16.8 % (11.5-14.5); RDW Standard Deviation 56.1 fL (36.4-46.3); Red Blood Count 4.38 M/uL (4.2-5.4); White Blood Count 6.73 K/uL (4.8-10.8)
[2021-02-19 07:18] LABS: Partial Thromboplastin Ratio 1.3; Partial Thromboplastin Time 35.5 Seconds (21.0-31.0)
[2021-02-19 07:36] LABS: BUN Creatinine Ratio 14.6 (10-20); Calcium 8.7 mg/dl (8.5-10.1); Creatinine Clr Calc Pharmacy 47.8 ml/min; Est GFR (African American) 52.1 ml/min; Potassium 3.2 mmol/L (3.5-5.1)
--- NOTE | 2021-02-19 07:47 | XRay Report ---
XR chest 1V portable HISTORY: Atypical Chest Pain COMPARISON: Chest 01/19/2021. FINDINGS: The heart remains enlarged. No pneumothorax. No pleural effusions. There is diffuse interst itial thickening. This has improved. A mitral valve ring is again noted. Stable 9 mm nodular density within the right midlung zone. IMPRESSION: 1. Diffuse interstitial thickening which has slightly improved. This may represent resolving pulmonar y edema. 2. Stable cardiomegaly. 3. Stable 9 mm right midlung zone nodule. ACT 112: Negative or not required by law. Electronically signed by: Tato Costa M.D. 02/19/2021 7:45 AM
[2021-02-19] MEDS: MULTIVITAMIN TAB PO SCH (08:23)
[2021-02-19] MEDS: VENLAFAXINE HCL XR 150 MG CAPXR PO SCH (08:23)
[2021-02-19] MEDS: VENLAFAXINE HCL XR 75 MG CAPXR PO SCH (08:23)
[2021-02-19] MEDS: METOPROLOL SUCC 50MG EXT REL TAB PO SCH ×2 (08:24→21:19)
[2021-02-19] MEDS: CHECK fentaNYL PATCH PLACEMENT SCH ×3 (08:24→23:15)
[2021-02-19] MEDS: DOCUSATE SODIUM 100 MG CAP PO SCH ×2 (08:24→21:20)
[2021-02-19] MEDS: UMECLIDINIUM BROMIDE 62.5MCG/BLISTER 7 PUFFS/INHALER INH SCH (08:25)
[2021-02-19] MEDS: dilTIAZem HCL 240 MG CAPCR PO SCH ×2 (08:25→21:18)
[2021-02-19] MEDS: FUROSEMIDE 80 MG TAB PO SCH ×2 (08:26→17:28)
[2021-02-19] MEDS: FLUTICASONE/VILANTEROL 200/25MCG 14 PUFFS/INHALER INH SCH (08:26)
[2021-02-19] MEDS: POTASSIUM CHLORIDE CRTAB 20 MEQ TABCR PO SCH (08:27)
[2021-02-19] MEDS: POLYETHYLENE (MIRALAX) 17 GM PACK PO SCH (08:27)
[2021-02-19] MEDS: GABAPENTIN 800 MG TAB PO SCH ×2 (08:27→21:20)
[2021-02-19] MEDS: INSULIN GLARGINE SOLOSTAR 100 UNITS/ML 3 ML PEN SC SCH ×2 (09:57→20:20)
[2021-02-19 11:35] LABS: Partial Thromboplastin Ratio 1.5; Partial Thromboplastin Time 40.5 Seconds (21.0-31.0)
--- NOTE | 2021-02-19 12:33 | Cardiology Consultation ---
Date of Consultation February 19, 2021 Assessment & Plan (1) Chest pain: (2) Atrial flutter: (3) Acute and chronic respiratory failure with hypoxia: (4) CKD (chronic kidney disease), stage III: (5) Lab test positive for detection of COVID-19 virus: The patient is listed as having a non-STEMI however her cardiac markers are negative. Her chest pain is also atypical. I would recommend stopping the heparin and restarting her Eliquis. She remains in atrial flutter with rate control. As mentioned in the history she saw the EP physician from [place] and according to the patient she is scheduled to have a procedure. Unfortunately the note has not been completed in the chart. Could be that she was going to be cardioverted. In any case I do not recommend any additional cardiac testing at this time. I would stabilize her medically and discharged when appropriate. History of Present Illness Attending Physician: Dee Sierra MD History of Present Illness This is a 65-year-old female with a complex past medical history as outlined below. Earlier this year she was treated in hospital for Covid. She has been convalescing at home and in her usual state of health with baseline shortness of breath. She was admitted with chest pain. That chest pain was atypical and that it did not occur with activity and was more of a sticking kind of discomfort increased with inspiration. After admission her her cardiac markers are negative and her EKG shows no acute changes. She has chronic atrial flutter with rates controlled. She indicates that she may be going out to [facility] for a procedure, perhaps cardioversion however the EP notes in the chart has not been completed. She has no complaints today during my interview. 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 2.June 13, 2005 cardiac catheterization at [facility] revealing left dominant coronary system with small caliber distal vessels consistent with diabetic history, without obstructive disease. 3.Symptomatic atrial fibrillation and atrial flutter observed initially in February 2013, status post numerous cardioversions. 4.May 02, [address] Masterson, status post ablation of the tricuspid valve to inferior vena caval isthmus with bidirectional block and termination of atrial flutter. Post ablation electrophysiologic study showed dual pathways with echo beats, no inducible SVT however extensive induction was not attempted 5.Anticoagulation prescribed secondary to the paroxysmal atrial fibrillation/flutter, elevated [id number] Score, Lambl's Excrescences, history of DVT, mitral valve disease. 6.She has not been felt to be a great candidate for antiarrhythmic therapy due to QT prolongation from her psych medications. 7.Hospitalized in July 2020 with back apin, nausea and vomiting, hyponatremia and hypokalemia following usage of metolazone daily x 3 consecutive days due to right heart failure issues. T3 vertebral compression fracture noted, managed conservatively. 8.Severe chronic obstructive lung disease, advanced emphysema, chronic hypoxemia with supplemental oxygen therapy PRN during the day and QHS. Ongoing tobacco abuse 9.Severe pulmonary hypertension 10.Chronic right heart failure, cor pulmonale physiology 11.Obstructive sleep apnea, on CPAP therapy. Allergies Allergy/AdvReac Type Severity Reaction Status Date / Time bee venom protein (honey bee) Allergy Severe SWELLING Verified 02/19/21 00:09 lisinopril Allergy Severe ANGIOEDEMA, Verified 02/19/21 00:09 FACIAL CELLULITIS, RASH strawberry Allergy Severe LIPS, Verified 02/19/21 00:09 TONGUE, FACE SWELLS alprazolam Allergy Intermediate RED FACE, Verified 02/19/21 00:09 FACE SWELLING alendronate sodium Allergy Unknown ON GMG MED Verified 02/19/21 00:09 LIST colesevelam AdvReac Intermediate Abdominal Verified 02/19/21 00:09 Pain lactose AdvReac Intermediate VOMTING Verified 02/19/21 00:09 DIARRHEA ABDOMINAL PAIN-LACTOSE INTOLERANCE lithium AdvReac Intermediate jitters Verified 02/19/21 00:09 metronidazole AdvReac Intermediate ABD PAIN, Verified 02/19/21 00:09 WEAKNESS, NAUSEA, VOMITING prednisone AdvReac Mild AGGRESSIVE Verified 02/19/21 00:09 BEHAVIOR Home Medications Medication Instructions Recorded Confirmed Type Spiriva with HandiHaler 1 cap INHALATION QAM 06/19/18 02/19/21 History atorvastatin 40 mg PO HS 06/19/18 02/18/21 History cetirizine 10 mg PO HS 06/19/18 02/18/21 History cholecalciferol (vitamin D3) 1,000 unit PO QAM 06/19/18 02/18/21 History [Vitamin D3] docusate sodium 100 mg PO BID 06/19/18 02/19/21 History epinephrine [EpiPen] 0.3 mg IM DIRECTED PRN 06/19/18 02/19/21 History fentanyl 50 mcg TRANSDERMAL [id number] 06/19/18 02/19/21 History methocarbamol 750 mg PO TID 06/19/18 02/19/21 History multivitamin 1 tab PO QAM 06/19/18 02/19/21 History ondansetron 8 mg PO BID PRN 06/19/18 02/19/21 History venlafaxine 150 mg PO QAM 06/19/18 02/19/21 History trazodone 200 mg PO HS 09/14/18 02/19/21 History venlafaxine 75 mg PO QAM 09/14/18 02/19/21 History zolpidem 5 mg PO HS 09/14/18 02/19/21 History gabapentin 800 mg PO BID 05/28/19 02/19/21 History Lantus U-100 Insulin 18 unit SUBCUT BID 03/02/20 02/19/21 History potassium chloride 40 meq PO DAILY 03/02/20 02/19/21 History levalbuterol HCl 1.25 mg INHALATION Q4H PRN 03/24/20 02/19/21 History nitroglycerin [Nitrostat] 0.4 mg SUBLINGUAL DIRECTED PRN 07/02/20 02/19/21 History oxycodone 10 mg PO Q6H PRN 07/02/20 02/19/21 History fluticasone propion-salmeterol 1 inh INHALATION BID 08/01/20 02/19/21 History [Advair Diskus] calcitriol 0.25 mcg PO 3XWK 10/21/20 02/18/21 History Gaviscon 1 tab PO TID PRN 11/08/20 02/19/21 History acetaminophen 500 mg PO Q6H PRN 11/08/20 02/18/21 History amitriptyline 50 mg PO HS 11/08/20 02/19/21 History benzonatate 100 mg PO TID PRN 11/08/20 02/18/21 History furosemide 80 mg PO BID 11/08/20 02/19/21 History melatonin 10 mg PO HS 11/08/20 02/19/21 History metoprolol succinate 100 mg PO BID 11/08/20 02/19/21 History pantoprazole 40 mg PO DAILYBB 11/08/20 02/19/21 History polyethylene glycol 3350 17 g PO DAILY 11/08/20 02/19/21 History prochlorperazine maleate 10 mg PO Q6H PRN 11/08/20 02/19/21 History [Compazine] Eliquis 5 mg PO BID #60 tab 11/16/20 02/19/21 Rx ammonium lactate 1 applic TOPICAL DAILY 01/04/21 02/18/21 History digoxin 125 mcg PO 3XWK 01/04/21 02/19/21 History diltiazem HCl 240 mg PO BID 01/04/21 02/19/21 History levalbuterol tartrate [Xopenex HFA] 1 puff INHALATION Q4H PRN 01/04/21 02/19/21 History nystatin 1 applic TOPICAL TID 01/04/21 02/19/21 History apixaban [Eliquis] 5 mg PO BID 02/05/21 02/18/21 History Patient History Medical History Abnormal CT scan, chest Anxiety Asthma 3LPM via n/c mostly continuous (although patient states she does not wear this all the time) Atrial fibrillation a. fib/a. flutter s/p cardioversion (2016) Atrial flutter Lynn esophagus Bipolar disorder Chronic back pain Chronic cor pulmonale Chronic hyponatremia Chronic kidney disease stage III Chronic obstructive pulmonary disease 3LPM via n/c mostly continuous (although patient states she does not wear this all the time) Chronic pain Chronic respiratory failure Chronic respiratory failure with hypoxia, on home oxygen therapy CKD (chronic kidney disease), stage III Compression fracture of T3 vertebra COVID-19 virus detected + 10/11/20 COVID-19 virus infection CVA (cerebral vascular accident) 2004 (per records; patient denies) Depression Diastolic CHF, chronic DM type 2 (diabetes mellitus, type 2) Fibromyalgia Gastroparesis GERD (gastroesophageal reflux disease) History of cardioversion History of Clostridium difficile infection History of DVT (deep vein thrombosis) left "hand" 2004- on AC HTN (hypertension) Hyperlipidemia Hypothyroidism no current medication per doctor orders. 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 Obesity Osteoarthritis Peripheral neuropathy Post traumatic stress disorder Pulmonary HTN Severe obstructive sleep apnea Surgical History History of adenoidectomy History of appendectomy LAPAROSCOPY History of cardiac cath 2004= no stents History of carpal tunnel release left History of cataract surgery BILATERAL History of cholecystectomy LAPAROSCOPY History of colonoscopy History of esophagogastroduodenoscopy (EGD) History of hysterectomy EMIGDIO WITH BSO History of mitral valve repair 2004 + resection fibroelastoma History of tonsillectomy Hx of lumpectomy right breast BENIGN Hx of tubal ligation Hx of umbilical hernia repair S/P trigger finger release RIGHT/LEFT Family History Mother Family history of diabetes mellitus Sister Family history of diabetes mellitus Ulcerative colitis Social History Smoking Status: Current every day smoker Tobacco Type: Cigarettes Cigarettes Per Day: 10; Second Hand Exposure: No; Hx Alcohol Use: No Hx Substance Use: No Preferred Language: Guamanian Communication Ability: Effective Visual Impairment: No Limitations Online Merchandising Specialist Required: No Beliefs That Will Affect Care: None marital status: / Current Living Situation: Alone Current Living Situation Comment: APARTMENT Feels Safe at Home: Yes Safety Concerns: Feels Safe At This Time Assistive Devices: Oxygen - Continuous Review of Systems Review of Systems: All systems reviewed & are unremarkable except as noted in HPI & below Nothing additional to add. Physical Exam Physical Exam: General: no acute distress and stated age Head: normocephalic, no masses, lesions, tenderness or abnormalities Eyes: conjunctiva are pink and non-injected, sclera clear Neck: supple, no adenopathy, no bruits, normal jugular venous pulse, no hepatojugular reflux Chest: normal shape and normal respiratory effort Lungs: clear to auscultation and percussion Cardiac Exam: - irregular rate & rhythm, no murmurs gallops or rubs - normal S1, normal S2 Pulses: 2(+) throughout Abdomen: abdomen soft, non-tender, no abnormal masses and no hepatosplenomegaly Musculoskeletal: no gait disturbance, no joint inflammation, no deforming arthritis Extremities: no edema and no cyanosis Neuro: grossly normal exam Results & Data ([facility]) Vital Signs (Past 12 Hours) Vital Signs Temp Pulse Pulse Pulse Resp BP BP 06/07/21 11:35 36.7 C 83 18 132/77 02/19/21 11:15 78 02/19/21 10:12 60 02/19/21 08:09 36.7 C 61 17 118/74 02/19/21 05:41 36.7 C 81 16 128/77 02/19/21 04:30 59 L 15 99/60 L 02/19/21 04:00 65 12 131/63 02/19/21 03:30 59 L 16 108/61 02/19/21 03:00 58 L 17 89/49 L 02/19/21 02:30 64 15 100/44 L 02/19/21 02:00 63 15 109/57 L 02/19/21 01:30 76 16 114/49 L 02/19/21 01:00 70 15 125/49 L Pulse Ox 02/19/21 11:35 91 02/19/21 11:15 02/19/21 10:12 02/19/21 08:09 94 02/19/21 05:41 90 02/19/21 04:30 94 02/19/21 04:00 97 02/19/21 03:30 94 02/19/21 03:00 93 02/19/21 02:30 94 02/19/21 02:00 94 02/19/21 01:30 94 02/19/21 01:00 95 Laboratory Results Laboratory Results - last 24 hr 02/18/21 02/18/21 02/18/21 23:20 23:20 23:20 WBC 9.55 RBC 4.32 Hgb 13.2 Hct 39.9 MCV 92.4 MCH 30.6 MCHC 33.1 RDW Std Deviation 57.0 H RDW Coeff of King 16.7 H Plt Count 295 MPV 9.3 Immature Gran % (Auto) 0.3 Neut % (Auto) 71.2 Lymph % (Auto) 20.2 Jennings % (Auto) 7.1 Eos % (Auto) 1.0 Baso % (Auto) 0.2 Neut # (Auto) 6.79 H Lymph # (Auto) 1.93 Jennings # (Auto) 0.68 H Eos # (Auto) 0.10 Baso # (Auto) 0.02 Immature Gran # (Auto) 0.03 H APTT 29.1 PTT Ratio 1.1 Sodium 136 Potassium 3.7 Chloride 99 Carbon Dioxide 27 Anion Gap 10.0 BUN 20 H Creatinine 1.47 H Est Cr Clr Drug Dosing 41.8 Est GFR ( Amer) 43.3 Est GFR (Non-Af Amer) 37.3 BUN/Creatinine Ratio 13.8 Glucose 139 H POC Glucose Calcium 9.0 Magnesium Total Bilirubin 0.3 AST 18 ALT 20 Alkaline Phosphatase 80 Total Creatine Kinase 104 CK-MB (CK-2) 1.9 CK/CKMB % Calc 1.8 Troponin I 0.020 NT-Pro-B Natriuret Pep 1905 H Total Protein 7.3 Albumin 2.9 L Globulin 4.4 H Albumin/Globulin Ratio 0.7 L Triglycerides Cholesterol LDL Cholesterol, Calc VLDL Cholesterol, Calc HDL Cholesterol Cholesterol/HDL Ratio Lipase 162 Urine Color Urine Appearance Urine pH Ur Specific [place] Urine Protein Urine Glucose (UA) Urine Ketones Urine Blood Urine Nitrite Urine Bilirubin Urine Urobilinogen Ur Leukocyte Esterase Urine WBC (Auto) Urine RBC (Auto) U Hyaline Cast (Auto) U Epithel Cells (Auto) Urine Bacteria (Auto) Digoxin COVID-19 Eval Order SARS-CoV-2 (PCR) 02/18/21 02/18/21 02/18/21 23:20 23:20 23:20 WBC RBC Hgb Hct MCV MCH MCHC RDW Std Deviation RDW Coeff of King Plt Count MPV Immature Gran % (Auto) Neut % (Auto) Lymph % (Auto) Jennings % (Auto) Eos % (Auto) Baso % (Auto) Neut # (Auto) Lymph # (Auto) Jennings # (Auto) Eos # (Auto) Baso # (Auto) Immature Gran # (Auto) APTT PTT Ratio Sodium Potassium Chloride Carbon Dioxide Anion Gap BUN Creatinine Est Cr Clr Drug Dosing Est GFR ( Amer) Est GFR (Non-Af Amer) BUN/Creatinine Ratio Glucose POC Glucose Calcium Magnesium Total Bilirubin AST ALT Alkaline Phosphatase Total Creatine Kinase CK-MB (CK-2) CK/CKMB % Calc Troponin I NT-Pro-B Natriuret Pep Total Protein Albumin Globulin Albumin/Globulin Ratio Triglycerides Cholesterol LDL Cholesterol, Calc VLDL Cholesterol, Calc HDL Cholesterol Cholesterol/HDL Ratio Lipase Urine Color Yellow Urine Appearance Clear Urine pH 5.0 Ur Specific [place] 1.008 Urine Protein Trace H Urine Glucose (UA) Trace H Urine Ketones Negative Urine Blood Trace H Urine Nitrite Negative Urine Bilirubin Negative Urine Urobilinogen Negative Ur Leukocyte Esterase Negative Urine WBC (Auto) 1-5 Urine RBC (Auto) 0-4 U Hyaline Cast (Auto) 1-5 U Epithel Cells (Auto) >30 H Urine Bacteria (Auto) Negative Digoxin COVID-19 Eval Order Covid19 at [facility] SARS-CoV-2 (PCR) POSITIVE A* 02/19/21 02/19/21 02/19/21 01:52 06:39 06:46 WBC 6.73 RBC 4.38 Hgb 13.0 Hct 39.8 MCV 90.9 MCH 29.7 MCHC 32.7 RDW Std Deviation 56.1 H RDW Coeff of King 16.8 H Plt Count 281 MPV 9.4 Immature Gran % (Auto) 0.1 Neut % (Auto) 68.6 Lymph % (Auto) 21.5 Jennings % (Auto) 6.8 Eos % (Auto) 2.7 Baso % (Auto) 0.3 Neut # (Auto) 4.61 Lymph # (Auto) 1.45 Jennings # (Auto) 0.46 Eos # (Auto) 0.18 Baso # (Auto) 0.02 Immature Gran # (Auto) 0.01 APTT PTT Ratio Sodium Potassium Chloride Carbon Dioxide Anion Gap BUN Creatinine Est Cr Clr Drug Dosing Est GFR ( Amer) Est GFR (Non-Af Amer) BUN/Creatinine Ratio Glucose POC Glucose 132 H Calcium Magnesium 2.3 Total Bilirubin AST ALT Alkaline Phosphatase Total Creatine Kinase CK-MB (CK-2) CK/CKMB % Calc Troponin I 0.023 NT-Pro-B Natriuret Pep Total Protein Albumin Globulin Albumin/Globulin Ratio Triglycerides Cholesterol LDL Cholesterol, Calc VLDL Cholesterol, Calc HDL Cholesterol Cholesterol/HDL Ratio Lipase Urine Color Urine Appearance Urine pH Ur Specific [place] Urine Protein Urine Glucose (UA) Urine Ketones Urine Blood Urine Nitrite Urine Bilirubin Urine Urobilinogen Ur Leukocyte Esterase Urine WBC (Auto) Urine RBC (Auto) U Hyaline Cast (Auto) U Epithel Cells (Auto) Urine Bacteria (Auto) Digoxin COVID-19 Eval Order SARS-CoV-2 (PCR) 02/19/21 02/19/21 02/19/21 06:46 06:46 06:46 WBC RBC Hgb Hct MCV MCH MCHC RDW Std Deviation RDW Coeff of [place] Plt Count MPV Immature Gran % (Auto) Neut % (Auto) Lymph % (Auto) Jennings % (Auto) Eos % (Auto) Baso % (Auto) Neut # (Auto) Lymph # (Auto) Jennings # (Auto) Eos # (Auto) Baso # (Auto) Immature Gran # (Auto) APTT 35.5 H PTT Ratio 1.3 Sodium 138 Potassium 3.2 L Chloride 103 Carbon Dioxide 31 Anion Gap 4.0 BUN 18 Creatinine 1.26 H Est Cr Clr Drug Dosing 47.8 Est GFR ( Amer) 52.1 Est GFR (Non-Af Amer) 45.0 BUN/Creatinine Ratio 14.6 Glucose 135 H POC Glucose Calcium 8.7 Magnesium Total Bilirubin AST ALT Alkaline Phosphatase Total Creatine Kinase CK-MB (CK-2) CK/CKMB % Calc Troponin I 0.021 NT-Pro-B Natriuret Pep Total Protein Albumin Globulin Albumin/Globulin Ratio Triglycerides 126 Cholesterol 89 LDL Cholesterol, Calc 24 VLDL Cholesterol, Calc 25 HDL Cholesterol 40 Cholesterol/HDL Ratio 2 Lipase Urine Color Urine Appearance Urine pH Ur Specific [place] Urine Protein Urine Glucose (UA) Urine Ketones Urine Blood Urine Nitrite Urine Bilirubin Urine Urobilinogen Ur Leukocyte Esterase Urine WBC (Auto) Urine RBC (Auto) U Hyaline Cast (Auto) U Epithel Cells (Auto) Urine Bacteria (Auto) Digoxin COVID-19 Eval Order SARS-CoV-2 (PCR) 02/19/21 02/19/21 02/19/21 06:46 11:05 12:02 WBC RBC Hgb Hct MCV MCH MCHC RDW Std Deviation RDW Coeff of [place] Plt Count MPV Immature Gran % (Auto) Neut % (Auto) Lymph % (Auto) Jennings % (Auto) Eos % (Auto) Baso % (Auto) Neut # (Auto) Lymph # (Auto) Jennings # (Auto) Eos # (Auto) Baso # (Auto) Immature Gran # (Auto) APTT 40.5 H PTT Ratio 1.5 Sodium Potassium Chloride Carbon Dioxide Anion Gap BUN Creatinine Est Cr Clr Drug Dosing Est GFR ( Amer) Est GFR (Non-Af Amer) BUN/Creatinine Ratio Glucose POC Glucose 131 H Calcium Magnesium Total Bilirubin AST ALT Alkaline Phosphatase Total Creatine Kinase CK-MB (CK-2) CK/CKMB % Calc Troponin I NT-Pro-B Natriuret Pep Total Protein Albumin Globulin Albumin/Globulin Ratio Triglycerides Cholesterol LDL Cholesterol, Calc VLDL Cholesterol, Calc HDL Cholesterol Cholesterol/HDL Ratio Lipase Urine Color Urine Appearance Urine pH Ur Specific [place] Urine Protein Urine Glucose (UA) Urine Ketones Urine Blood Urine Nitrite Urine Bilirubin Urine Urobilinogen Ur Leukocyte Esterase Urine WBC (Auto) Urine RBC (Auto) U Hyaline Cast (Auto) U Epithel Cells (Auto) Urine Bacteria (Auto) Digoxin 0.7 L COVID-19 Eval Order SARS-CoV-2 (PCR) Medications Administered Current Inpatient Medications Acetaminophen (Acetaminophen 325 Mg Tab) 650 mg PO Q4H PRN PRN Reason: Pain or Fever Stop: 03/21/21 05:31 Amitriptyline HCl (Amitriptyline Hcl 50 Mg Tab) 50 mg PO HS [facility] Stop: 03/21/21 20:59 Aspirin (Aspirin 81 Mg Ectab) 81 mg PO QAM [facility] Stop: 03/21/21 05:54 Last Admin: 02/19/21 06:40 Dose: 81 mg Documented by: Atorvastatin Calcium (Atorvastatin 40 Mg Tab) 40 mg PO HS [facility] Stop: 03/21/21 20:59 Cetirizine HCl (Cetirizine Hcl 10 Mg Tablet) 10 mg PO HS [facility] Stop: 03/21/21 20:59 Dextrose (Dextrose 50% 50 Ml Syringe) 25 - 50 ml IV UD PRN; Protocol PRN Reason: Hypoglycemia Protocol Stop: 03/21/21 05:31 Digoxin (Digoxin 0.125 Mg Tab) 0.125 mg PO MoWeFr@1600 [facility] Stop: 03/21/21 15:59 Diltiazem HCl (Diltiazem Hcl 240 Mg Capcr) 240 mg PO BID [facility] Stop: 03/21/21 08:59 Last Admin: 02/19/21 08:25 Dose: 240 mg Documented by: Docusate Sodium (Docusate Sodium 100 Mg Cap) 100 mg PO BID [facility] Stop: 03/21/21 08:59 Last Admin: 02/19/21 08:24 Dose: 100 mg Documented by: Fentanyl (Fentanyl 50 Mcg/Hr Tdsy) 50 mcg TD Q3D@0900 [facility] Stop: 03/06/21 08:59 Fluticasone/Vilanterol (Fluticasone/Vilanterol 200/25mcg 14 Puffs/Inhaler) 1 puffs INH DAILY [facility] Stop: 03/21/21 08:59 Last Admin: 02/19/21 08:26 Dose: 1 puffs Documented by: Furosemide (Furosemide 80 Mg Tab) 80 mg PO BIDM [facility] Stop: 03/21/21 07:59 Last Admin: 02/19/21 08:26 Dose: Not Given Documented by: Gabapentin (Gabapentin 800 Mg Tab) 800 mg PO BID [facility] Stop: 03/21/21 08:59 Last Admin: 02/19/21 08:27 Dose: 800 mg Documented by: Glucagon (Glucagon For Inj 1 Mg Vial) 1 mg SQ UD PRN; Protocol PRN Reason: Hypoglycemia Protocol Stop: 03/21/21 05:31 Glucose (Glucose 10 Tabs/Tube) 4 - 8 tabs PO UD PRN; Protocol PRN Reason: Hypoglycemia Protocol Stop: 03/21/21 05:31 Glucose (Glucose 40% Gel 15 Gm Tube) 15 - 30 gm PO UD PRN; Protocol PRN Reason: Hypoglycemia Protocol Stop: 03/21/21 05:31 Heparin Sodium/Dextrose (Heparin Sodium/Dextrose) 25,000 units in 500 mls @ 25 mls/hr IV .Q20H JORGE; Protocol Stop: 03/21/21 02:37 Last Titration: 02/19/21 06:59 Dose: 1,250 units/hr, 25 mls/hr Documented by: Promethazine HCl 12.5 mg/ (Sodium Chloride) 50.5 mls @ 202 mls/hr IV Q6H PRN PRN Reason: Nausea And Vomiting Stop: 03/21/21 05:31 Insulin Aspart (Insulin Aspart 100 Units/Ml 3 Ml Pen) 0 units SC Q6 JORGE Stop: 03/21/21 05:59 Last Admin: 02/19/21 12:34 Dose: Not Given Documented by: Insulin Glargine (Insulin Glargine Solostar 100 Units/Ml 3 Ml Pen) 10 units SC BID [facility] Stop: 03/21/21 08:59 Last Admin: 02/19/21 09:57 Dose: 10 units Documented by: Ipratropium [place] (Ipratropium [place] Neb Soln 0.02% 2.5 Ml Vial) 0.5 mg INH Q4R PRN PRN Reason: Shortness Of Breath Or Wheezing Stop: 03/21/21 06:59 Levalbuterol HCl (Levalbuterol 1.25mg/0.5ml Neb) 1.25 mg INH Q4R PRN PRN Reason: Shortness Of Breath Or Wheezing Stop: 03/21/21 06:59 Melatonin (Melatonin 3 Mg Tab) 9 mg PO HSZ PRN PRN Reason: Sleep Stop: 03/21/21 05:40 Metoprolol Succinate (Metoprolol Succ 50mg Ext Rel Tab) 100 mg PO BID [facility] Stop: 03/21/21 08:59 Last Admin: 02/19/21 08:24 Dose: 100 mg Documented by: Miscellaneous (Fentanyl Patch Remove & Waste) 1 ea N/A Q3D@0859 [facility] Stop: 03/22/21 08:58 Miscellaneous (Check Fentanyl Patch Placement) 1 ea N/A QS JORGE Stop: 03/21/21 07:59 Last Admin: 02/19/21 08:24 Dose: 1 ea Documented by: Miscellaneous (Carbohydrates For Hypoglycemia ) 15 - 30 gm PO UD PRN PRN Reason: Hypoglycemia Protocol Stop: 03/21/21 05:31 Miscellaneous (Remove Nicoderm Patch) 1 ea N/A DAILY@0859 [facility] Stop: 03/22/21 08:58 Multivitamins (Multivitamin Tab) 1 tab PO QAM [facility] Stop: 03/21/21 08:59 Last Admin: 02/19/21 08:23 Dose: 1 tab Documented by: Nicotine (Nicotine 14 Mg/24 Hr Patch) 14 mg TD QAM [facility] Stop: 03/21/21 05:59 Last Admin: 02/19/21 06:41 Dose: 14 mg Documented by: Nitroglycerin (Nitroglycerin Sl 0.4 Mg/Tab Tab) 0.4 mg SL PRN PRN PRN Reason: Chest Pain Stop: 03/21/21 05:31 Oxycodone HCl (Oxycodone Hcl Ir 5 Mg Tab (Immediate Release)) 10 mg PO Q6H PRN PRN Reason: Pain Stop: 03/05/21 05:31 Pantoprazole Sodium (Pantoprazole 40 Mg Tab) 40 mg PO DAILYBB [facility] Stop: 03/21/21 06:29 Last Admin: 02/19/21 06:41 Dose: 40 mg Documented by: Polyethylene Glycol (Polyethylene (Miralax) 17 Gm Pack) 17 gm PO DAILY JORGE Stop: 03/21/21 08:59 Last Admin: 02/19/21 08:27 Dose: Not Given Documented by: Potassium Chloride (Potassium Chloride Crtab 20 Meq Tabcr) 40 meq PO DAILY JORGE Stop: 03/21/21 08:59 Last Admin: 02/19/21 08:27 Dose: 40 meq Documented by: Trazodone HCl (Trazodone Hcl 100 Mg Tab) 200 mg PO HS [facility] Stop: 03/21/21 20:59 Umeclidinium [place] (Umeclidinium [place] 62.5mcg/Blister 7 Puffs/Inhaler) 1 puffs INH QAM [facility] Stop: 03/21/21 08:59 Last Admin: 02/19/21 08:25 Dose: 1 puffs Documented by: Venlafaxine HCl (Venlafaxine Hcl Xr 150 Mg Capxr) 150 mg PO QAM [facility] Stop: 03/21/21 08:59 Last Admin: 02/19/21 08:23 Dose: 150 mg Documented by: Venlafaxine HCl (Venlafaxine Hcl Xr 75 Mg Capxr) 75 mg PO QAM [facility] Stop: 03/21/21 08:59 Last Admin: 02/19/21 08:23 Dose: 75 mg Documented by: (1) Atrial flutter Atrial flutter type: typical Qualified Code(s): I48.3 - Typical atrial flutter (2) Chest pain Chest pain type: unspecified Qualified Code(s): R07.9 - Chest pain, unspecified
--- NOTE | 2021-02-19 14:04 | Hospitalist Progress Note ---
Date of Service February 19, 2021 Assessment & Plan (1) Atypical chest pain: Has significant CAD with atrial flutter with variable block Presented with off-and-on chest pain at rest or on exertion Did not have any significant EKG changes and no increase in cardiac troponin ACS has been ruled out Appreciate cardiology input and recommendation Recently she has been evaluated at [facility] for possible ablation therapy and she was advised to keep that appointment as an outpatient PT and OT evaluation Possible discharge in a day or 2 (2) Atrial flutter: Rate remains controlled We will continue current medications (3) DARIUS (obstructive sleep apnea): Continue with home BiPAP (4) CKD (chronic kidney disease), stage III: Creatinine remains stable at 1.26 (5) Bipolar disorder: No acute confusion We will continue with current medications for bipolar disease (6) GERD (gastroesophageal reflux disease): Continue PPI (7) HTN (hypertension): (8) Hypothyroidism: Continue supplement (9) DM type 2 (diabetes mellitus, type 2): Continue SSI (10) Chronic obstructive pulmonary disease: Does not have any exacerbation (11) Diastolic CHF, chronic: No acute exacerbation We will continue home dose of any diuretics Admission and Anticipated Discharge Date Admission Date: February 19, 2021 Subjective 02/19/2021 The patient was seen and examined in telemetry unit She is a 65-year-old female with significant complicated past cardiac medical history was admitted early this morning with off-and-on chest pain for some time She has been feeling much better since admission and denies any significant chest pain and/or palpitation or shortness of breath She complains to have generalized weakness Review of Systems Review of Systems: All systems reviewed and are unremarkable except as noted below Cardiovascular: + edema (Trace bilateral leg edema); no chest pain and no palpitations Physical Exam Physical Exam: Lying in bed comfortably Constitutional: well developed, well nourished and + obese; not ill appearing Eyes: PERRL, conjunctivae normal, anicteric sclerae ENMT: external ear and nose normal, oropharynx normal Neck: trachea midline, no thyromegaly Respiratory: no respiratory distress Auscultation: + diminished lung sounds and + crackles (Minimal crackles at the bases) Cardiovascular: Rate/Rhythm: not irregularly irregular Heart Sounds: no murmur Extremities: no edema Gastrointestinal (Abdomen): Inspection/Auscultation: + abdomen distended and normal bowel sounds Percussion/Palpation: abdomen soft; abdomen nontender Musculoskeletal: No acute arthritis in any joint Neurologic: Alert, awake and oriented x3 Psychiatric: A+Ox3, euthymic affect Lymphatic: no cervical or axillary lymphadenopathy Results & Data Results & Data ([facility]) Vital Signs (Past 12 Hours) Vital Signs Temp Pulse Pulse Pulse Resp BP BP 02/19/21 13:27 02/19/21 11:35 36.7 C 83 18 132/77 02/19/21 11:15 78 02/19/21 10:12 60 02/19/21 08:09 36.7 C 61 17 118/74 02/19/21 05:41 36.7 C 81 16 128/77 02/19/21 04:30 59 L 15 99/60 L 02/19/21 04:00 65 12 131/63 02/19/21 03:30 59 L 16 108/61 02/19/21 03:00 58 L 17 89/49 L 02/19/21 02:30 64 15 100/44 L 02/19/21 02:00 63 15 109/57 L Pulse Ox Pulse Ox Pulse Ox 02/19/21 13:27 91 91 02/19/21 11:35 91 02/19/21 11:15 02/19/21 10:12 02/19/21 08:09 94 02/19/21 05:41 90 02/19/21 04:30 94 02/19/21 04:00 97 02/19/21 03:30 94 02/19/21 03:00 93 02/19/21 02:30 94 02/19/21 02:00 94 Laboratory Results Short CBC 02/18/21 02/19/21 Range/Units 23:20 06:46 WBC 9.55 6.73 (4.8-10.8) K/uL Hgb 13.2 13.0 (12.0-16.0) g/dL Hct 39.9 39.8 (37-47) % Plt Count 295 281 (130-400) K/uL BMP 02/18/21 02/19/21 23:20 06:46 Sodium 136 138 Potassium 3.7 3.2 L Chloride 99 103 Carbon Dioxide 27 31 BUN 20 H 18 Creatinine 1.47 H 1.26 H Glucose 139 H 135 H Calcium 9.0 8.7 Cardiac Enzymes 02/18/21 02/19/21 02/19/21 Range/Units 23:20 01:52 06:46 Total Creatine Kinase 104 (26-192) U/L CK-MB (CK-2) 1.9 (0.5-3.6) ng/ml Troponin I 0.020 0.023 0.021 (0-0.045) ng/ml Liver Function 02/18/21 Range/Units 23:20 Total Bilirubin 0.3 (0.2-1) mg/dl AST 18 (15-37) U/L ALT 20 (12-78) U/L Alkaline Phosphatase 80 (45-117) U/L Albumin 2.9 L (3.4-5.0) gm/dl Urine 02/18/21 Range/Units 23:20 Urine Color Yellow Urine Appearance Clear (Clear) Urine pH 5.0 (4.5-7.5) Ur Specific [place] 1.008 (1.000-1.030) Urine Protein Trace H (Negative) Urine Glucose (UA) Trace H (Negative) Medications Administered Current Inpatient Medications Acetaminophen (Acetaminophen 325 Mg Tab) 650 mg PO Q4H PRN PRN Reason: Pain or Fever Stop: 03/21/21 05:31 Amitriptyline HCl (Amitriptyline Hcl 50 Mg Tab) 50 mg PO HS JORGE Stop: 03/21/21 20:59 Apixaban (Apixaban 5 Mg Tablet) 5 mg PO BID [facility] Stop: 03/21/21 13:59 Aspirin (Aspirin 81 Mg Ectab) 81 mg PO QAM [facility] Stop: 03/21/21 05:54 Last Admin: 02/19/21 06:40 Dose: 81 mg Documented by: Atorvastatin Calcium (Atorvastatin 40 Mg Tab) 40 mg PO HS JORGE Stop: 03/21/21 20:59 Cetirizine HCl (Cetirizine Hcl 10 Mg Tablet) 10 mg PO HS J[facility] Stop: 03/21/21 20:59 Dextrose (Dextrose 50% 50 Ml Syringe) 25 - 50 ml IV UD PRN; Protocol PRN Reason: Hypoglycemia Protocol Stop: 03/21/21 05:31 Digoxin (Digoxin 0.125 Mg Tab) 0.125 mg PO MoWeFr@1600 [facility] Stop: 03/21/21 15:59 Diltiazem HCl (Diltiazem Hcl 240 Mg Capcr) 240 mg PO BID [facility] Stop: 03/21/21 08:59 Last Admin: 02/19/21 08:25 Dose: 240 mg Documented by: Docusate Sodium (Docusate Sodium 100 Mg Cap) 100 mg PO BID [facility] Stop: 03/21/21 08:59 Last Admin: 02/19/21 08:24 Dose: 100 mg Documented by: Fentanyl (Fentanyl 50 Mcg/Hr Tdsy) 50 mcg TD Q3D@0900 [facility] Stop: 03/06/21 08:59 Fluticasone/Vilanterol (Fluticasone/Vilanterol 200/25mcg 14 Puffs/Inhaler) 1 puffs INH DAILY [facility] Stop: 03/21/21 08:59 Last Admin: 02/19/21 08:26 Dose: 1 puffs Documented by: Furosemide (Furosemide 80 Mg Tab) 80 mg PO BIDM [facility] Stop: 03/21/21 07:59 Last Admin: 02/19/21 08:26 Dose: Not Given Documented by: Gabapentin (Gabapentin 800 Mg Tab) 800 mg PO BID [facility] Stop: 03/21/21 08:59 Last Admin: 02/19/21 08:27 Dose: 800 mg Documented by: Glucagon (Glucagon For Inj 1 Mg Vial) 1 mg SQ UD PRN; Protocol PRN Reason: Hypoglycemia Protocol Stop: 03/21/21 05:31 Glucose (Glucose 10 Tabs/Tube) 4 - 8 tabs PO UD PRN; Protocol PRN Reason: Hypoglycemia Protocol Stop: 03/21/21 05:31 Glucose (Glucose 40% Gel 15 Gm Tube) 15 - 30 gm PO UD PRN; Protocol PRN Reason: Hypoglycemia Protocol Stop: 03/21/21 05:31 Promethazine HCl 12.5 mg/ (Sodium Chloride) 50.5 mls @ 202 mls/hr IV Q6H PRN PRN Reason: Nausea And Vomiting Stop: 03/21/21 05:31 Insulin Aspart (Insulin Aspart 100 Units/Ml 3 Ml Pen) 0 units SC Q6 [facility] Stop: 03/21/21 05:59 Last Admin: 02/19/21 12:34 Dose: Not Given Documented by: Insulin Glargine (Insulin Glargine Solostar 100 Units/Ml 3 Ml Pen) 10 units SC BID [facility] Stop: 03/21/21 08:59 Last Admin: 02/19/21 09:57 Dose: 10 units Documented by: Ipratropium [place] (Ipratropium [place] Neb Soln 0.02% 2.5 Ml Vial) 0.5 mg INH Q4R PRN PRN Reason: Shortness Of Breath Or Wheezing Stop: 03/21/21 06:59 Levalbuterol HCl (Levalbuterol 1.25mg/0.5ml Neb) 1.25 mg INH Q4R PRN PRN Reason: Shortness Of Breath Or Wheezing Stop: 03/21/21 06:59 Melatonin (Melatonin 3 Mg Tab) 9 mg PO HSZ PRN PRN Reason: Sleep Stop: 03/21/21 05:40 Metoprolol Succinate (Metoprolol Succ 50mg Ext Rel Tab) 100 mg PO BID [facility] Stop: 03/21/21 08:59 Last Admin: 02/19/21 08:24 Dose: 100 mg Documented by: Miscellaneous (Fentanyl Patch Remove & Waste) 1 ea N/A Q3D@0859 [facility] Stop: 03/22/21 08:58 Miscellaneous (Check Fentanyl Patch Placement) 1 ea N/A QS [facility] Stop: 03/21/21 07:59 Last Admin: 02/19/21 08:24 Dose: 1 ea Documented by: Miscellaneous (Carbohydrates For Hypoglycemia ) 15 - 30 gm PO UD PRN PRN Reason: Hypoglycemia Protocol Stop: 03/21/21 05:31 Miscellaneous (Remove Nicoderm Patch) 1 ea N/A DAILY@0859 [facility] Stop: 03/22/21 08:58 Multivitamins (Multivitamin Tab) 1 tab PO QAM [facility] Stop: 03/21/21 08:59 Last Admin: 02/19/21 08:23 Dose: 1 tab Documented by: Nicotine (Nicotine 14 Mg/24 Hr Patch) 14 mg TD QAM [facility] Stop: 03/21/21 05:59 Last Admin: 02/19/21 06:41 Dose: 14 mg Documented by: Nitroglycerin (Nitroglycerin Sl 0.4 Mg/Tab Tab) 0.4 mg SL PRN PRN PRN Reason: Chest Pain Stop: 03/21/21 05:31 Oxycodone HCl (Oxycodone Hcl Ir 5 Mg Tab (Immediate Release)) 10 mg PO Q6H PRN PRN Reason: Pain Stop: 03/05/21 05:31 Pantoprazole Sodium (Pantoprazole 40 Mg Tab) 40 mg PO DAILYBB [facility] Stop: 03/21/21 06:29 Last Admin: 02/19/21 06:41 Dose: 40 mg Documented by: Polyethylene Glycol (Polyethylene (Miralax) 17 Gm Pack) 17 gm PO DAILY [facility] Stop: 03/21/21 08:59 Last Admin: 02/19/21 08:27 Dose: Not Given Documented by: Potassium Chloride (Potassium Chloride Crtab 20 Meq Tabcr) 40 meq PO DAILY [facility] Stop: 03/21/21 08:59 Last Admin: 02/19/21 08:27 Dose: 40 meq Documented by: Trazodone HCl (Trazodone Hcl 100 Mg Tab) 200 mg PO HS [facility] Stop: 03/21/21 20:59 Umeclidinium [place] (Umeclidinium [place] 62.5mcg/Blister 7 Puffs/Inhaler) [facility] Stop: 03/21/21 08:59 Last Admin: 02/19/21 08:25 Dose: 1 puffs Documented by: Venlafaxine HCl (Venlafaxine Hcl Xr 150 Mg Capxr) 150 [facility] Stop: 03/21/21 08:59 Last Admin: 02/19/21 08:23 Dose: 150 mg Documented by: Venlafaxine HCl (Venlafaxine Hcl Xr 75 Mg Capxr) 75 mg PO QAM [facility] Stop: 03/21/21 08:59 Last Admin: 02/19/21 08:23 Dose: 75 mg Documented by: (1) Atrial flutter Atrial flutter type: typical Qualified Code(s): I48.3 - Typical atrial flutter
[2021-02-19] MEDS ORDERED: DIGOXIN 0.125 MG TAB PO SCH (16:00)
[2021-02-19] MEDS: APIXABAN 5 MG TABLET PO SCH ×2 (16:53→23:15)
[2021-02-19] MEDS ORDERED: Nursing to Pharmacy Communication SCH (17:00)
[2021-02-19] MEDS ORDERED: AMITRIPTYLINE HCL 50 MG TAB PO SCH (21:00)
[2021-02-19] MEDS ORDERED: traZODone HCL 100 MG TAB PO SCH (21:00)
[2021-02-19] MEDS ORDERED: ATORVASTATIN 40 MG TAB PO SCH (21:00)
[2021-02-19] MEDS ORDERED: CETIRIZINE HCL 10 MG TABLET PO SCH (21:00)
--- NOTE | 2021-02-19 22:09 | Electrocardiogram Report ---
Test Reason : Blood Pressure : / mmHG Vent. Rate : 059 BPM Atrial Rate : 236 BPM P-R Int : 000 ms QRS Dur : 164 ms QT Int : 396 ms P-R-T Axes : 084 099 -07 degrees QTc Int : 392 ms Atrial flutter with 4:1 A-V conduction Right bundle branch block Abnormal ECG When compared with ECG of 19-JAN-2021 13:45, Vent. rate has decreased BY 42 BPM Nonspecific T wave abnormality has replaced inverted T waves in Inferior leads QT has shortened Confirmed by Scott Judge [id number] on 02/19/2021 10:08:51 PM Referred By: REFERRED SELF Confirmed By:Scott Judge
[2021-02-20] MEDS: PANTOprazole 40 MG TAB PO SCH (06:07)
[2021-02-20 07:39] LABS: Basophils # (auto) 0.02 K/uL (0-0.2); Basophils % (auto) 0.3 %; Eosinophils # (auto) 0.18 K/uL (0-0.5); Eosinophils % (auto) 2.4 %; Hematocrit (blood only) 40.4 % (37-47); Hemoglobin 12.8 g/dL (12.0-16.0); Immature Granulocytes # (auto) 0.02 K/uL (0.00-0.02); Immature Granulocytes % (auto) 0.3 %; Lymphocytes # (auto) 0.98 K/uL (1.2-3.4); Lymphocytes % (auto) 13.1 %; Mean Corpuscular Hemoglobin 29.4 pg (25-34); Mean Corpuscular Hgb Conc 31.7 g/dL (32-36); Mean Corpuscular Volume 92.7 fL (80-100); Mean Platelet Volume 9.6 fL (7.4-10.4); Monocytes # (auto) 0.55 K/uL (0.11-0.59); Monocytes % (auto) 7.3 %; Neutrophils # (auto) 5.75 K/uL (1.4-6.5); Neutrophils % (auto) 76.6 %; Platelet Count 272 K/uL (130-400); RDW Standard Deviation 58.1 fL (36.4-46.3); Red Blood Count 4.36 M/uL (4.2-5.4)
[2021-02-20 08:01] LABS: BUN Creatinine Ratio 16.2 (10-20); Calcium 9.2 mg/dl (8.5-10.1); Creatinine Clr Calc Pharmacy 47.5 ml/min; Est GFR (African American) 52.6 ml/min; Est GFR (Non-African American) 45.4 ml/min; Magnesium 2.2 mg/dl (1.8-2.4); Phosphorus 3.7 mg/dl (2.5-4.9); Potassium 3.9 mmol/L (3.5-5.1)
[2021-02-20] MEDS: INSULIN ASPART 100 UNITS/ML 3 ML PEN SC SCH ×2 (08:32→12:00)
[2021-02-20] MEDS: FUROSEMIDE 80 MG TAB PO SCH (08:35)
[2021-02-20] MEDS: POTASSIUM CHLORIDE CRTAB 20 MEQ TABCR PO SCH (08:35)
[2021-02-20] MEDS: CHECK fentaNYL PATCH PLACEMENT SCH (08:35)
[2021-02-20] MEDS: dilTIAZem HCL 240 MG CAPCR PO SCH (08:36)
[2021-02-20] MEDS: GABAPENTIN 800 MG TAB PO SCH (08:36)
[2021-02-20] MEDS: VENLAFAXINE HCL XR 75 MG CAPXR PO SCH (08:36)
[2021-02-20] MEDS: ASPIRIN 81 MG ECTAB PO SCH (08:37)
[2021-02-20] MEDS: MULTIVITAMIN TAB PO SCH (08:38)
[2021-02-20] MEDS: NICOTINE 14 MG/24 HR PATCH TD SCH (08:38)
[2021-02-20] MEDS: APIXABAN 5 MG TABLET PO SCH (08:38)
[2021-02-20] MEDS: METOPROLOL SUCC 50MG EXT REL TAB PO SCH (08:38)
[2021-02-20] MEDS: DOCUSATE SODIUM 100 MG CAP PO SCH (08:38)
[2021-02-20] MEDS: VENLAFAXINE HCL XR 150 MG CAPXR PO SCH (08:38)
[2021-02-20] MEDS: INSULIN GLARGINE SOLOSTAR 100 UNITS/ML 3 ML PEN SC SCH (08:39)
[2021-02-20] MEDS ORDERED: fentaNYL 50 MCG/HR TDSY TD SCH (09:00)
[2021-02-20] MEDS: UMECLIDINIUM BROMIDE 62.5MCG/BLISTER 7 PUFFS/INHALER INH SCH (09:44)
[2021-02-20] MEDS: FLUTICASONE/VILANTEROL 200/25MCG 14 PUFFS/INHALER INH SCH (09:44)
[2021-02-20] MEDS: POLYETHYLENE (MIRALAX) 17 GM PACK PO SCH (09:44)
--- NOTE | 2021-02-20 11:19 | Hospitalist Progress Note ---
Date of Service February 20, 2021 Assessment & Plan (1) Atypical chest pain: Has significant CAD with atrial flutter with variable block Presented with off-and-on chest pain at rest or on exertion Did not have any significant EKG changes and no increase in cardiac troponin ACS has been ruled out Appreciate cardiology input and recommendation Recently she has been evaluated at [facility] for possible ablation therapy and she was advised to keep that appointment as an outpatient PT and OT evaluation-did very well with PT and OT and recommended home Possible discharge in a day or 2 Remains stable without any more chest pain and/or palpitation Will be discharged home this afternoon (2) Atrial flutter: Rate remains controlled We will continue current medications He is going to have an appointment with [facility] counseling services manager and keven Lopez for further management of her atrial flutter (3) DARIUS (obstructive sleep apnea): Continue with home BiPAP (4) CKD (chronic kidney disease), stage III: Creatinine remains stable at 1.26 (5) Bipolar disorder: No acute confusion We will continue with current medications for bipolar disease (6) GERD (gastroesophageal reflux disease): Continue PPI (7) HTN (hypertension): (8) Hypothyroidism: Continue supplement (9) DM type 2 (diabetes mellitus, type 2): Continue SSI (10) Chronic obstructive pulmonary disease: Does not have any exacerbation (11) Diastolic CHF, chronic: No acute exacerbation We will continue home dose of any diuretics No signs or symptoms of fluid overload Admission and Anticipated Discharge Date Admission Date: February 19, 2021 Subjective 02/19/2021 The patient was seen and examined in telemetry unit She is a 65-year-old female with significant complicated past cardiac medical history was admitted early this morning with off-and-on chest pain for some time She has been feeling much better since admission and denies any significant chest pain and/or palpitation or shortness of breath She complains to have generalized weakness 02/20/2021 The patient was seen and examined in telemetry unit She has been feeling much better and denies any more chest pain and or palpitation Her weakness is better Has had physical therapy and she will be going home this afternoon Review of Systems Review of Systems: As per HPI, all 10 systems reviewed, all other ROS negative Cardiovascular: no chest pain, no palpitations and no edema (Trace bilateral leg edema) Physical Exam Physical Exam: Lying in bed comfortably Constitutional: well developed, well nourished and + obese; not ill appearing Eyes: PERRL, conjunctivae normal, anicteric sclerae ENMT: external ear and nose normal, oropharynx normal Neck: trachea midline, no thyromegaly Respiratory: no respiratory distress Auscultation: + diminished lung sounds and + crackles (Minimal crackles at the bases) Cardiovascular: Rate/Rhythm: not irregularly irregular Heart Sounds: no murmur Extremities: no edema Gastrointestinal (Abdomen): Inspection/Auscultation: + abdomen distended and normal bowel sounds Percussion/Palpation: abdomen soft; abdomen nontender Musculoskeletal: No acute arthritis in any joint Neurologic: Alert, awake and oriented x3. No focal sensory and motor deficit appreciated. Generally weak Psychiatric: A+Ox3, euthymic affect Lymphatic: no cervical or axillary lymphadenopathy Results & Data Results & Data ([facility]) Vital Signs (Past 12 Hours) Vital Signs Temp Pulse Pulse Resp BP Pulse Ox 02/20/21 10:58 36.6 C 60 19 138/67 92 02/20/21 08:36 36.7 C 67 18 145/72 H 93 02/20/21 08:00 60 02/20/21 05:05 36.7 C 59 L 16 135/69 92 Laboratory Results Short CBC 02/20/21 Range/Units 06:53 WBC 7.50 (4.8-10.8) K/uL Hgb 12.8 (12.0-16.0) g/dL Hct 40.4 (37-47) % Plt Count 272 (130-400) K/uL BMP 02/20/21 06:53 Sodium 143 Potassium 3.9 D Chloride 108 H Carbon Dioxide 31 BUN 20 H Creatinine 1.25 H Glucose 140 H Calcium 9.2 Medications Administered Current Inpatient Medications Acetaminophen (Acetaminophen 325 Mg Tab) 650 mg PO Q4H PRN PRN Reason: Pain or Fever Stop: 03/21/21 05:31 Amitriptyline HCl (Amitriptyline Hcl 50 Mg Tab) 50 mg PO HS JORGE Stop: 03/21/21 20:59 Last Admin: 02/19/21 21:21 Dose: 50 mg Documented by: Apixaban (Apixaban 5 Mg Tablet) 5 mg PO BID [facility] Stop: 03/21/21 13:59 Last Admin: 02/20/21 08:38 Dose: 5 mg Documented by: Aspirin (Aspirin 81 Mg Ectab) 81 mg PO QAM [facility] Stop: 03/21/21 05:54 Last Admin: 02/20/21 08:37 Dose: 81 mg Documented by: Atorvastatin Calcium (Atorvastatin 40 Mg Tab) 40 mg PO [facility] Stop: 03/21/21 20:59 Last Admin: 02/19/21 21:18 Dose: 40 mg Documented by: Cetirizine HCl (Cetirizine Hcl 10 Mg Tablet) 10 mg PO [facility] Stop: 03/21/21 20:59 Last Admin: 02/19/21 21:20 Dose: 10 mg Documented by: Dextrose (Dextrose 50% 50 Ml Syringe) 25 - 50 ml IV UD PRN; Protocol PRN Reason: Hypoglycemia Protocol Stop: 03/21/21 05:31 Digoxin (Digoxin 0.125 Mg Tab) 0.125 mg PO MoWeFr@1600 [facility] Stop: 03/21/21 15:59 Last Admin: 02/19/21 17:30 Dose: 0.125 mg Documented by: Diltiazem HCl (Diltiazem Hcl 240 Mg Capcr) 240 mg PO BID [facility] Stop: 03/21/21 08:59 Last Admin: 02/20/21 08:36 Dose: 240 mg Documented by: Docusate Sodium (Docusate Sodium 100 Mg Cap) 100 mg PO BID [facility] Stop: 03/21/21 08:59 Last Admin: 02/20/21 08:38 Dose: 100 mg Documented by: Fentanyl (Fentanyl 50 Mcg/Hr Tdsy) 50 mcg TD Q3D@0900 [facility] Stop: 03/06/21 08:59 Last Admin: 02/20/21 09:43 Dose: 50 mcg Documented by: Fluticasone/Vilanterol (Fluticasone/Vilanterol 200/25mcg 14 Puffs/Inhaler) 1 puffs INH DAILY [facility] Stop: 03/21/21 08:59 Last Admin: 02/20/21 09:44 Dose: 1 puffs Documented by: Furosemide (Furosemide 80 Mg Tab) 80 mg PO BIDM [facility] Stop: 03/21/21 07:59 Last Admin: 02/20/21 08:35 Dose: 80 mg Documented by: Gabapentin (Gabapentin 800 Mg Tab) 800 mg PO BID [facility] Stop: 03/21/21 08:59 Last Admin: 02/20/21 08:36 Dose: 800 mg Documented by: Glucagon (Glucagon For Inj 1 Mg Vial) 1 mg SQ UD PRN; Protocol PRN Reason: Hypoglycemia Protocol Stop: 03/21/21 05:31 Glucose (Glucose 10 Tabs/Tube) 4 - 8 tabs PO UD PRN; Protocol PRN Reason: Hypoglycemia Protocol Stop: 03/21/21 05:31 Glucose (Glucose 40% Gel 15 Gm Tube) 15 - 30 gm PO UD PRN; Protocol PRN Reason: Hypoglycemia Protocol Stop: 03/21/21 05:31 Promethazine HCl 12.5 mg/ (Sodium Chloride) 50.5 mls @ 202 mls/hr IV Q6H PRN PRN Reason: Nausea And Vomiting Stop: 03/21/21 05:31 Insulin Aspart (Insulin Aspart 100 Units/Ml 3 Ml Pen) 0 units SC ACHS [facility] Stop: 03/21/21 20:59 Last Admin: 02/20/21 08:32 Dose: 4 units Documented by: Insulin Glargine (Insulin Glargine Solostar 100 Units/Ml 3 Ml Pen) 10 units SC BID [facility] Stop: 03/21/21 08:59 Last Admin: 02/20/21 08:39 Dose: 10 units Documented by: Ipratropium [place] (Ipratropium [place] Neb Soln 0.02% 2.5 Ml Vial) 0.5 mg INH Q4R PRN PRN Reason: Shortness Of Breath Or Wheezing Stop: 03/21/21 06:59 Last Admin: 02/19/21 21:59 Dose: 0.5 mg Documented by: Levalbuterol HCl (Levalbuterol 1.25mg/0.5ml Neb) 1.25 mg INH Q4R PRN PRN Reason: Shortness Of Breath Or Wheezing Stop: 03/21/21 06:59 Last Admin: 02/19/21 21:59 Dose: 1.25 mg Documented by: Melatonin (Melatonin 3 Mg Tab) 9 mg PO HSZ PRN PRN Reason: Sleep Stop: 03/21/21 05:40 Last Admin: 02/19/21 23:20 Dose: 9 mg Documented by: Metoprolol Succinate (Metoprolol Succ 50mg Ext Rel Tab) 100 mg PO BID [facility] Stop: 03/21/21 08:59 Last Admin: 02/20/21 08:38 Dose: 100 mg Documented by: Miscellaneous (Fentanyl Patch Remove & Waste) 1 ea N/A Q3D@0859 [facility] Stop: 03/22/21 08:58 Last Admin: 02/20/21 09:44 Dose: 1 ea Documented by: Miscellaneous (Check Fentanyl Patch Placement) 1 ea N/A QS [facility] Stop: 03/21/21 07:59 Last Admin: 02/20/21 08:35 Dose: 1 ea Documented by: Miscellaneous (Carbohydrates For Hypoglycemia ) 15 - 30 gm PO UD PRN PRN Reason: Hypoglycemia Protocol Stop: 03/21/21 05:31 Miscellaneous (Remove Nicoderm Patch) 1 ea N/A DAILY@0859 [facility] Stop: 03/22/21 08:58 Last Admin: 02/20/21 09:10 Dose: Not Given Documented by: Multivitamins (Multivitamin Tab) 1 tab PO QAM [facility] Stop: 03/21/21 08:59 Last Admin: 02/20/21 08:38 Dose: 1 tab Documented by: Nicotine (Nicotine 14 Mg/24 Hr Patch) 14 mg TD QAM [facility] Stop: 03/21/21 05:59 Last Admin: 02/20/21 08:38 Dose: 14 mg Documented by: Nitroglycerin (Nitroglycerin Sl 0.4 Mg/Tab Tab) 0.4 mg SL PRN PRN PRN Reason: Chest Pain Stop: 03/21/21 05:31 Oxycodone HCl (Oxycodone Hcl Ir 5 Mg Tab (Immediate Release)) 10 mg PO Q6H PRN PRN Reason: Pain Stop: 03/05/21 05:31 Pantoprazole Sodium (Pantoprazole 40 Mg Tab) 40 mg PO DAILYBB [facility] Stop: 03/21/21 06:29 Last Admin: 02/20/21 06:07 Dose: 40 mg Documented by: Polyethylene Glycol (Polyethylene (Miralax) 17 Gm Pack) 17 gm PO DAILY [facility] Stop: 03/21/21 08:59 Last Admin: 02/20/21 09:44 Dose: Not Given Documented by: Potassium Chloride (Potassium Chloride Crtab 20 Meq Tabcr) 40 meq PO DAILY [facility] Stop: 03/21/21 08:59 Last Admin: 02/20/21 08:35 Dose: 40 meq Documented by: Trazodone HCl (Trazodone Hcl 100 Mg Tab) 200 mg PO HS [facility] Stop: 03/21/21 20:59 Last Admin: 02/19/21 21:19 Dose: 200 mg Documented by: Umeclidinium [place] (Umeclidinium [place] 62.5mcg/Blister 7 Puffs/Inhaler) 1 puffs INH QAM [facility] Stop: 03/21/21 08:59 Last Admin: 02/20/21 09:44 Dose: 1 puffs Documented by: Venlafaxine HCl (Venlafaxine Hcl Xr 150 Mg Capxr) [facility] [place] Stop: 03/21/21 08:59 Last Admin: 02/20/21 08:38 Dose: 150 mg Documented by: Venlafaxine HCl (Venlafaxine Hcl Xr 75 Mg Capxr) 75 [facility] [place] Stop: 03/21/21 08:59 Last Admin: 02/20/21 08:36 Dose: 75 mg Documented by: (1) Atrial flutter Atrial flutter type: typical Qualified Code(s): I48.3 - Typical atrial flutter
--- NOTE | 2021-02-20 12:33 | Cardiology Progress Note ---
Date of Service February 20, 2021 Assessment & Plan (1) Chest pain: (2) Atrial flutter: (3) Acute and chronic respiratory failure with hypoxia: (4) CKD (chronic kidney disease), stage III: (5) Lab test positive for detection of COVID-19 virus: Spoke with Dr. Romero at [facility]. His plan was to bring the patient to [place] where he would do an AV node ablation and insert a permanent pacemaker for better heart rate control. From a cardiac standpoint I believe the patient may be discharged today. She can then follow-up with [facility] for her upcoming procedure. Admission and Anticipated Discharge Date Admission Date: February 19, 2021 Subjective Patient has no complaints today. No additional chest pain. She feels well and wants to go home. Review of Systems Review of Systems: All systems reviewed & are unremarkable except as noted in Subjective Physical Exam Physical Exam: General: no acute distress and stated age Head: normocephalic, no masses, lesions, tenderness or abnormalities Eyes: conjunctiva are pink and non-injected, sclera clear Neck: supple, no adenopathy, no bruits, normal jugular venous pulse, no hepatojugular reflux Chest: normal shape and normal respiratory effort Lungs: clear to auscultation and percussion Cardiac Exam: - regular rate & rhythm, no murmurs gallops or rubs - normal S1, normal S2 Pulses: 2(+) throughout Abdomen: abdomen soft, non-tender, no abnormal masses and no hepatosplenomegaly Musculoskeletal: no gait disturbance, no joint inflammation, no deforming arthritis Extremities: no edema and no cyanosis Neuro: grossly normal exam Results & Data ([facility]) Vital Signs (Past 12 Hours) Vital Signs Temp Pulse Pulse Resp BP Pulse Ox 02/20/21 10:58 36.6 C 60 19 138/67 92 02/20/21 08:36 36.7 C 67 18 145/72 H 93 02/20/21 08:00 60 02/20/21 05:05 36.7 C 59 L 16 135/69 92 Laboratory Results Laboratory Results - last 24 hr 02/19/21 02/19/21 02/20/21 16:00 20:05 06:53 WBC 7.50 RBC 4.36 Hgb 12.8 Hct 40.4 MCV 92.7 MCH 29.4 MCHC 31.7 L RDW Std Deviation 58.1 H RDW Coeff of King 17.0 H Plt Count 272 MPV 9.6 Immature Gran % (Auto) 0.3 Neut % (Auto) 76.6 Lymph % (Auto) 13.1 Taliaferro % (Auto) 7.3 Eos % (Auto) 2.4 Baso % (Auto) 0.3 Neut # (Auto) 5.75 Lymph # (Auto) 0.98 L Tal[place]ferro # (Auto) 0.55 Eos # (Auto) 0.18 Baso # (Auto) 0.02 Immature Gran # (Auto) 0.02 Sodium Potassium Chloride Carbon Dioxide Anion Gap BUN Creatinine Est Cr Clr Drug Dosing Est GFR ( Amer) Est GFR (Non-Af Amer) BUN/Creatinine Ratio Glucose POC Glucose 142 H 162 H Calcium Phosphorus Magnesium 02/20/21 02/20/21 02/20/21 06:53 07:15 11:40 WBC RBC Hgb Hct MCV MCH MCHC RDW Std Deviation RDW Coeff of King Plt Count MPV Immature Gran % (Auto) Neut % (Auto) Lymph % (Auto) Taliaferro % (Auto) Eos % (Auto) Baso % (Auto) Neut # (Auto) Lymph # (Auto) Tal[place]ferro # (Auto) Eos # (Auto) Baso # (Auto) Immature Gran # (Auto) Sodium 143 Potassium 3.9 D Chloride 108 H Carbon Dioxide 31 Anion Gap 5.0 BUN 20 H Creatinine 1.25 H Est Cr Clr Drug Dosing 47.5 Est GFR ( Amer) 52.6 Est GFR (Non-Af Amer) 45.4 BUN/Creatinine Ratio 16.2 Glucose 140 H POC Glucose 144 H 138 H Calcium 9.2 Phosphorus 3.7 Magnesium 2.2 Medications Administered Current Inpatient Medications Acetaminophen (Acetaminophen 325 Mg Tab) 650 mg PO Q4H PRN PRN Reason: Pain or Fever Stop: 03/21/21 05:31 Amitriptyline HCl (Amitriptyline Hcl 50 Mg Tab) 50 mg PO HS JORGE Stop: 03/21/21 20:59 Last Admin: 02/19/21 21:21 Dose: 50 mg Documented by: Apixaban (Apixaban 5 Mg Tablet) 5 mg PO BID JORGE Stop: 03/21/21 13:59 Last Admin: 02/20/21 08:38 Dose: 5 mg Documented by: Aspirin (Aspirin 81 Mg Ectab) 81 mg PO QAM [facility] Stop: 03/21/21 05:54 Last Admin: 02/20/21 08:37 Dose: 81 mg Documented by: Atorvastatin Calcium (Atorvastatin 40 Mg Tab) 40 mg PO HS [facility] Stop: 03/21/21 20:59 Last Admin: 02/19/21 21:18 Dose: 40 mg Documented by: Cetirizine HCl (Cetirizine Hcl 10 Mg Tablet) 10 mg PO HS [facility] Stop: 03/21/21 20:59 Last Admin: 02/19/21 21:20 Dose: 10 mg Documented by: Dextrose (Dextrose 50% 50 Ml Syringe) 25 - 50 ml IV UD PRN; Protocol PRN Reason: Hypoglycemia Protocol Stop: 03/21/21 05:31 Digoxin (Digoxin 0.125 Mg Tab) 0.125 mg PO MoWeFr@1600 [facility] Stop: 03/21/21 15:59 Last Admin: 02/19/21 17:30 Dose: 0.125 mg Documented by: Diltiazem HCl (Diltiazem Hcl 240 Mg Capcr) 240 mg PO BID [facility] Stop: 03/21/21 08:59 Last Admin: 02/20/21 08:36 Dose: 240 mg Documented by: Docusate Sodium (Docusate Sodium 100 Mg Cap) 100 mg PO BID [facility] Stop: 03/21/21 08:59 Last Admin: 02/20/21 08:38 Dose: 100 mg Documented by: Fentanyl (Fentanyl 50 Mcg/Hr Tdsy) 50 mcg TD Q3D@0900 [facility] Stop: 03/06/21 08:59 Last Admin: 02/20/21 09:43 Dose: 50 mcg Documented by: Fluticasone/Vilanterol (Fluticasone/Vilanterol 200/25mcg 14 Puffs/Inhaler) 1 puffs INH DAILY [facility] Stop: 03/21/21 08:59 Last Admin: 02/20/21 09:44 Dose: 1 puffs Documented by: Furosemide (Furosemide 80 Mg Tab) 80 mg PO BIDM [facility] Stop: 03/21/21 07:59 Last Admin: 02/20/21 08:35 Dose: 80 mg Documented by: Gabapentin (Gabapentin 800 Mg Tab) 800 mg PO BID [facility] Stop: 03/21/21 08:59 Last Admin: 02/20/21 08:36 Dose: 800 mg Documented by: Glucagon (Glucagon For Inj 1 Mg Vial) 1 mg SQ UD PRN; Protocol PRN Reason: Hypoglycemia Protocol Stop: 03/21/21 05:31 Glucose (Glucose 10 Tabs/Tube) 4 - 8 tabs PO UD PRN; Protocol PRN Reason: Hypoglycemia Protocol Stop: 03/21/21 05:31 Glucose (Glucose 40% Gel 15 Gm Tube) 15 - 30 gm PO UD PRN; Protocol PRN Reason: Hypoglycemia Protocol Stop: 03/21/21 05:31 Promethazine HCl 12.5 mg/ (Sodium Chloride) 50.5 mls @ 202 mls/hr IV Q6H PRN PRN Reason: Nausea And Vomiting Stop: 03/21/21 05:31 Insulin Aspart (Insulin Aspart 100 Units/Ml 3 Ml Pen) 0 units SC ACHS [facility] Stop: 03/21/21 20:59 Last Admin: 02/20/21 12:00 Dose: 4 units Documented by: Insulin Glargine (Insulin Glargine Solostar 100 Units/Ml 3 Ml Pen) 10 units SC BID [facility] Stop: 03/21/21 08:59 Last Admin: 02/20/21 08:39 Dose: 10 units Documented by: Ipratropium Delta (Ipratropium Delta Neb Soln 0.02% 2.5 Ml Vial) 0.5 mg INH Q4R PRN PRN Reason: Shortness Of Breath Or Wheezing Stop: 03/21/21 06:59 Last Admin: 02/19/21 21:59 Dose: 0.5 mg Documented by: Levalbuterol HCl (Levalbuterol 1.25mg/0.5ml Neb) 1.25 mg INH Q4R PRN PRN Reason: Shortness Of Breath Or Wheezing Stop: 03/21/21 06:59 Last Admin: 02/19/21 21:59 Dose: 1.25 mg Documented by: Melatonin (Melatonin 3 Mg Tab) 9 mg PO HSZ PRN PRN Reason: Sleep Stop: 03/21/21 05:40 Last Admin: 02/19/21 23:20 Dose: 9 mg Documented by: Metoprolol Succinate (Metoprolol Succ 50mg Ext Rel Tab) 100 mg PO BID JORGE Stop: 03/21/21 08:59 Last Admin: 02/20/21 08:38 Dose: 100 mg Documented by: Miscellaneous (Fentanyl Patch Remove & Waste) 1 ea N/A Q3D@0859 [facility] Stop: 03/22/21 08:58 Last Admin: 02/20/21 09:44 Dose: 1 ea Documented by: Miscellaneous (Check Fentanyl Patch Placement) 1 ea N/A QS [facility] Stop: 03/21/21 07:59 Last Admin: 02/20/21 08:35 Dose: 1 ea Documented by: Miscellaneous (Carbohydrates For Hypoglycemia ) 15 - 30 gm PO UD PRN PRN Reason: Hypoglycemia Protocol Stop: 03/21/21 05:31 Miscellaneous (Remove Nicoderm Patch) 1 ea N/A DAILY@0859 [facility] Stop: 03/22/21 08:58 Last Admin: 02/20/21 09:10 Dose: Not Given Documented by: Multivitamins (Multivitamin Tab) 1 tab PO QAM [facility] Stop: 03/21/21 08:59 Last Admin: 02/20/21 08:38 Dose: 1 tab Documented by: Nicotine (Nicotine 14 Mg/24 Hr Patch) 14 mg TD QAM [facility] Stop: 03/21/21 05:59 Last Admin: 02/20/21 08:38 Dose: 14 mg Documented by: Nitroglycerin (Nitroglycerin Sl 0.4 Mg/Tab Tab) 0.4 mg SL PRN PRN PRN Reason: Chest Pain Stop: 03/21/21 05:31 Oxycodone HCl (Oxycodone Hcl Ir 5 Mg Tab (Immediate Release)) 10 mg PO Q6H PRN PRN Reason: Pain Stop: 03/05/21 05:31 Pantoprazole Sodium (Pantoprazole 40 Mg Tab) 40 mg PO DAILYBB [facility] Stop: 03/21/21 06:29 Last Admin: 02/20/21 06:07 Dose: 40 mg Documented by: Polyethylene Glycol (Polyethylene (Miralax) 17 Gm Pack) 17 gm PO DAILY [facility] Stop: 03/21/21 08:59 Last Admin: 02/20/21 09:44 Dose: Not Given Documented by: Potassium Chloride (Potassium Chloride Crtab 20 Meq Tabcr) 40 meq PO DAILY [facility] Stop: 03/21/21 08:59 Last Admin: 02/20/21 08:35 Dose: 40 meq Documented by: Trazodone HCl (Trazodone Hcl 100 Mg Tab) 200 mg PO HS [facility] Stop: 03/21/21 20:59 Last Admin: 02/19/21 21:19 Dose: 200 mg Documented by: Umeclidinium Delta (Umeclidinium Delta 62.5mcg/Blister 7 Puffs/Inhaler) [facility] Stop: 03/21/21 08:59 Last Admin: 02/20/21 09:44 Dose: 1 puffs Documented by: Venlafaxine HCl (Venlafaxine Hcl Xr 150 Mg Capxr) [facility] Stop: 03/21/21 08:59 Last Admin: 02/20/21 08:38 Dose: 150 mg Documented by: Venlafaxine HCl (Venlafaxine Hcl Xr 75 Mg Capxr) [facility] Stop: 03/21/21 08:59 Last Admin: 02/20/21 08:36 Dose: 75 mg Documented by: (1) Chest pain Chest pain type: unspecified Qualified Code(s): R07.9 - Chest pain, unspecified (2) Atrial flutter Atrial flutter type: typical Qualified Code(s): I48.3 - Typical atrial flutter
--- NOTE | 2021-02-21 06:00 | Electrocardiogram Report ---
Test Reason : Blood Pressure : / mmHG Vent. Rate : 060 BPM Atrial Rate : 240 BPM P-R Int : 000 ms QRS Dur : 152 ms QT Int : 426 ms P-R-T Axes : 077 110 -70 degrees QTc Int : 426 ms Atrial flutter with 4:1 A-V conduction Right bundle branch block Left posterior fascicular block Bifascicular block Abnormal ECG When compared with ECG of 18-FEB-2021 22:58, No significant change Confirmed by Scott Judge ([id number]) on 02/21/2021 5:59:49 AM Referred By: REFERRED SELF Confirmed By:Scott Judge
--- NOTE | 2021-02-21 09:12 | Discharge Summary ---
Date of Service February 21, 2021 Admission HPI Per Admitting Provider History obtained from patient and records. Medical history is significant for chronic diastolic heart failure, EF of 65-70% (TTE 2019), atrial flutter status post ablation on Eliquis, cardiac fibroblastoma status post surgery, HTN, hyperlipidemia, chronic respiratory failure secondary to COPD on home O2, DARIUS on BIPAP, history of pulmonary hypertension, ongoing tobacco abuse, hx CVA as per records, chronic pain on narcotics, DM2 insulin requiring, CRI (baseline crea 1.4-1.5), gastroparesis per records, anxiety/mood disorder, past hx COVID-19 illness. Recent confinement January 2021 for respiratory failure, decompensated heart failure, rapid A. fib. Recent outpatient [facility] evaluation 5 days ago for palpitations. Last night patient was in bed when she noted substernal heaviness with shortness of breath. Usual cough symptoms. Denies new flulike symptoms. Patient compliant with home meds. Gets this chest pain from time to time as per patient. Chest pain relieved by nitroglycerin administered at the ER. Lasix given at the ER for pulmonary congestion. Patient complained of intense headache after Nitropaste administration. Nitro subsequently removed. Tylenol administered. Patient currently comfortable. MEDICAL HISTORY: As above. SURGERIES: She has had hysterectomy, appendectomy, cholecystectomy, lumpectomy, mitral valve repair, tubal ligation, umbilical hernia repair, carpal tunnel surgery, Ear surgery, section, FAMILY HISTORY: Heart disease. IBD, diabetes PERSONAL AND SOCIAL HISTORY: Eight cigarettes a day, disabled, no chronic intake of alcoholic beverages. Admission Exam Per Admitting Provider Physical Exam: GENERAL: Comfortable, obese, slightly hard of hearing, no respiratory distress SKIN: Normal color, warm HEENT: [place] palpebral conjunctivae, no ptosis, dry buccal mucosa, nasal cannula in place NECK : Supple, short neck, no tenderness CHEST : Decreased breath sounds, scattered expiratory wheezes, anterior chest wall tenderness HEART : RRR, no obvious murmurs ABDOMEN: Some distention, nontender EXTREMITIES : Minimal LE swelling, no LE tenderness, no other conspicuous deformities noted NEUROLOGIC : Coherent, no facial asymmetry, mild hearing impairment, no other gross focality Principal Diagnosis Atypical chest pain-no ACS, atrial flutter with controlled ventricular rate, DARIUS on BiPAP, chronic kidney disease, bipolar disorder Discharge Exam Constitutional well developed, well nourished and + obese; not ill appearing Eyes PERRL, conjunctivae normal, anicteric sclerae ENMT external ear and nose normal, oropharynx normal Neck trachea midline, no thyromegaly Respiratory no respiratory distress Auscultation: + diminished lung sounds and + crackles (Minimal crackles at the bases) Cardiovascular Rate/Rhythm: no irregularly irregular Heart Sounds: no murmur Extremities: no edema Gastrointestinal (Abdomen) Inspection/Auscultation: + abdomen distended and normal bowel sounds Percussion/Palpation: abdomen soft; abdomen nontender Psychiatric A+Ox3, euthymic affect Lymphatic no cervical or axillary lymphadenopathy Discharge Data Allergies Allergy/AdvReac Type Severity Reaction Status Date / Time bee venom protein (honey bee) Allergy Severe SWELLING Verified 02/19/21 00:09 lisinopril Allergy Severe ANGIOEDEMA, Verified 02/19/21 00:09 FACIAL CELLULITIS, RASH strawberry Allergy Severe LIPS, Verified 02/19/21 00:09 TONGUE, FACE SWELLS alprazolam Allergy Intermediate RED FACE, Verified 02/19/21 00:09 FACE SWELLING alendronate sodium Allergy Unknown ON [facility] MED Verified 02/19/21 00:09 LIST colesevelam AdvReac Intermediate Abdominal Verified 02/19/21 00:09 Pain lactose AdvReac Intermediate VOMTING Verified 02/19/21 00:09 DIARRHEA ABDOMINAL PAIN-LACTOSE INTOLERANCE lithium AdvReac Intermediate jitters Verified 02/19/21 00:09 metronidazole AdvReac Intermediate ABD PAIN, Verified 02/19/21 00:09 WEAKNESS, NAUSEA, VOMITING prednisone AdvReac Mild AGGRESSIVE Verified 02/19/21 00:09 BEHAVIOR Consultations 02/19/21 00:46 ED Decision to Admit Stat 02/19/21 05:32 Consult Cardiology Routine Hospital Course (1) Atypical chest pain: Has significant CAD with atrial flutter with variable block Presented with off-and-on chest pain at rest or on exertion Did not have any significant EKG changes and no increase in cardiac troponin ACS has been ruled out Appreciate cardiology input and recommendation Recently she has been evaluated at [facility] for possible ablation therapy and she was advised to keep that appointment as an outpatient PT and OT evaluation-did very well with PT and OT and recommended home Possible discharge in a day or 2 Remains stable without any more chest pain and/or palpitation Will be discharged home this afternoon (2) Atrial flutter: Rate remains controlled We will continue current medications He is going to have an appointment with [facility] saw edge fuser and keven Lopez for further management of her atrial flutter (3) DARIUS (obstructive sleep apnea): Continue with home BiPAP (4) CKD (chronic kidney disease), stage III: Creatinine remains stable at 1.26 (5) Bipolar disorder: No acute confusion We will continue with current medications for bipolar disease (6) GERD (gastroesophageal reflux disease): Continue PPI (7) HTN (hypertension): (8) Hypothyroidism: Continue supplement (9) DM type 2 (diabetes mellitus, type 2): Continue SSI (10) Chronic obstructive pulmonary disease: Does not have any exacerbation (11) Diastolic CHF, chronic: No acute exacerbation We will continue home dose of any diuretics No signs or symptoms of fluid overload Total Time Total Time Spent Total Time Spent (In Minutes): 35 minutes Total Time Includes: Examination of the Patient, Discharge Planning, Medication Reconciliation and Communication With Other Providers Discharge Plan Discharge Items Patient Disposition: Home - Self-Care Reason For Visit: ACS Discharge Diagnosis: Atypical chest pain-no ACS, atrial flutter with controlled ventricular rate, DARIUS on BiPAP, chronic kidney disease, bipolar disorder Condition on Discharge: Fair Activity: Resume your previous activity Non-emergency contact: Primary Care Provider Call non-emergency contact if: you have any medication questions and your symptoms worsen Follow-up/Referrals: Manoj Goins DO [Primary Care Provider] - 02/27/21 3:00 pm (Date & Time 02/27/2021 3:00 PM Provider Manoj Goins DO Department General Internal Medicine [facility] PLEASE NOTE THAT THIS IS A TELEHEALTH VISIT. PLEASE FOLLOW THE INSTRUCTIONS PROVIDED IN YOUR EMAIL. IF YOU HAVE ANY QUESTIONS REGARDING THIS APPOINTMENT, PLEASE CALL ) Diet: Carb Consistent or DM2, Heart Healthy and Low Sodium (2gm) Fluids: 1500ml (6 cups) Addtl Attending Provider Instructions: Please take extra precaution to avoid falls Please keep appointment with the circular saw edge fuser at [place] for further evaluation and management of your atrial flutter Take 1 aspirin of 81 mg daily No other changes in your medication Pending Studies at Discharge: No Stand-Alone Forms: My [employer], Smoking Cessation Medications and DC Order Prescriptions: New aspirin 81 mg Tablet,Delayed Release (Dr/Ec) 81 mg PO QAM Qty: 30 RF: 0 Continued gabapentin 800 mg Tablet 800 mg PO BID RF: 0 potassium chloride 10 mEq tablet extended release 40 meq PO DAILY RF: 0 Lantus U-100 Insulin 100 unit/mL solution 18 unit SUBCUT BID RF: 0 oxycodone 10 mg tablet 10 mg PO Q6H PRN (Reason: Pain) RF: 0 nitroglycerin [Nitrostat] 0.4 mg tablet, sublingual 0.4 mg sublingual DIRECTED PRN (Reason: Chest Pain) RF: 0 multivitamin Tablet 1 tab PO QAM RF: 0 atorvastatin 40 mg Tablet 40 mg PO HS RF: 0 fentanyl 50 mcg/hr Patch 72 Hour 50 mcg TRANSDERMAL [id number] RF: 0 cetirizine 10 mg Tablet 10 mg PO HS RF: 0 venlafaxine 150 mg Capsule,Extended Release 24hr 150 mg PO QAM RF: 0 ondansetron 8 mg Tablet,Disintegrating 8 mg PO BID PRN (Reason: Nausea) RF: 0 methocarbamol 750 mg Tablet 750 mg PO TID RF: 0 epinephrine [EpiPen] 0.3 mg/0.3 mL Auto-Injector 0.3 mg IM DIRECTED PRN (Reason: Allergic Reaction) RF: 0 docusate sodium 100 mg Tablet 100 mg PO BID RF: 0 Spiriva with HandiHaler 18 mcg Capsule, W/Inhalation Device 1 cap INHALATION QAM RF: 0 cholecalciferol (vitamin D3) [Vitamin D3] 1,000 unit Tablet 1,000 unit PO QAM RF: 0 venlafaxine 75 mg Capsule,Extended Release 24hr 75 mg PO QAM RF: 0 trazodone 100 mg Tablet 200 mg PO HS RF: 0 zolpidem 5 mg Tablet 5 mg PO HS RF: 0 levalbuterol HCl 1.25 mg/3 mL solution for nebulization 1.25 mg INHALATION Q4H PRN (Reason: Wheezing) RF: 0 fluticasone propion-salmeterol [Advair Diskus] 250-50 mcg/dose blister with device 1 inh INHALATION BID RF: 0 calcitriol 0.25 mcg capsule 0.25 mcg PO 3XWK RF: 0 acetaminophen 500 mg Tablet 500 mg PO Q6H PRN (Reason: Pain, Mild/Moderate) RF: 0 pantoprazole 40 mg tablet,delayed release (DR/EC) 40 mg PO DAILYBB RF: 0 metoprolol succinate 100 mg tablet extended release 24 hr 100 mg PO BID RF: 0 Gaviscon 80-14.2 mg tablet,chewable 1 tab PO TID PRN (Reason: Reflux) RF: 0 prochlorperazine maleate [Compazine] 10 mg Tablet 10 mg PO Q6H PRN (Reason: Nausea) RF: 0 amitriptyline 50 mg Tablet 50 mg PO HS RF: 0 benzonatate 100 mg Capsule 100 mg PO TID PRN (Reason: Cough) RF: 0 polyethylene glycol 3350 17 gram/dose Powder 17 g PO DAILY RF: 0 melatonin 10 mg Tablet 10 mg PO HS RF: 0 furosemide 40 mg tablet 80 mg PO BID RF: 0 Eliquis 5 mg tablet 5 mg PO BID RF: 0 ammonium lactate 12 % Cream 1 applic TOPICAL DAILY RF: 0 digoxin 125 mcg (0.125 mg) tablet 125 mcg PO 3XWK RF: 0 nystatin 100,000 unit/gram Powder 1 applic TOPICAL TID RF: 0 levalbuterol tartrate [Xopenex HFA] 45 mcg/actuation Hfa Aerosol Inhaler 1 puff INHALATION Q4H PRN (Reason: WHEEZING, IF NEB NOT AVAILABLE.) RF: 0 diltiazem HCl 240 mg capsule,extended release 24hr 240 mg PO BID RF: 0 Discontinued Eliquis 5 mg tablet 5 mg PO BID Qty: 60 RF: 0 Discharge Orders: Discharge Order (Routine); Ordered 02/20/21 Ordered By: Dee Sierra Admission Data Admit Date/Time: 02/19/21 02:23 Attending Provider: Dee Sierra Admit Provider: Jn Burns Primary Care Provider: Manoj Gonis Other Providers: Jn Burns ; Mikey Jaquez ; Chico Underwood ; Mc House ; Sree Quinonez ; Apollo Figueroa ; Javan Maravilla ; Ninoska Zamora ; Kenia Guzman ; Felicitas Gloria ; Campos Good Other Interventions: Discharge Summary Assessment (RN) Last Done: 02/20/21 14:34
== END 2021-02-20 15:20 | disposition home or self-care (01) | DRG 313 ==
LOC: ED 22:46 → SUATTDRO 02-19 02:17 → 2S 02-19 02:17

== ENCOUNTER 2021-10-01 12:48 | Inpatient (IN) ==
[2021-10-01 13:15] LABS: Hematocrit (blood only) 42.7 % (37-47); Hemoglobin 14.3 g/dL (12.0-16.0); Mean Corpuscular Hgb Conc 33.5 g/dL (32-36); Mean Corpuscular Volume 92.4 fL (80-100); Platelet Count 259 K/uL (130-400); RDW Coefficient of Variation 12.8 % (11.5-14.5); RDW Standard Deviation 43.2 fL (36.4-46.3); Red Blood Count 4.62 M/uL (4.2-5.4); White Blood Count 27.74 K/uL (4.8-10.8)
[2021-10-01] MEDS ORDERED: LACTATED RINGER'S 1,000 ML IV SCH (13:15)
--- NOTE | 2021-10-01 13:16 | Emergency Department Note ---
History of Present Illness General Chief complaint: Abdominal Pain Stated complaint: uti , fever, weakness Time Seen by Provider: 10/01/21 12:52 Source: patient Mode of arrival: EMS Limitations: no limitations History of Present Illness Provider complaint: Abdominal pain Onset (ago): day(s) 4 Location: abdomen Radiation: non-radiation Pain Consistency: + constant Maximum Pain Intensity: 9 Quality: + constant Relieved By: + none Exacerbated By: + movement Associated symptoms: + malaise; no chest pain, no fever/chills or no nausea/vomiting Treatments prior to arrival: other This is a 65-year-old female presents emergency department complaining of lower abdominal pain. Patient states pain first began several days ago, and she had accompanying urinary symptoms at the time. Patient states she did come to the emergency room, was diagnosed with urinary tract infection and has been taking antibiotics as prescribed to the feels she is getting worse instead of im proving. Patient denies any prior history of resistant organisms with her urinary tract infections. She denies any other medication changes or dietary changes. Patient does have an extensive past medical history and does take numerous medications daily. Patient has been using her daily oxycodone that she has for chronic back pain as well as Tylenol in addition to treat her pain. Patient states the pain is constant in the lower abdomen, otherwise nonradiating. Patient denies any vomiting or diarrhea. Denies black or bloody stools. She denies any accompanying fevers or chills. Patient states the pain has been constant and slowly worsening. Patient states she does have a history of kidney problems and sees Dr. Tran. She denies any prior history of kidney stones or pyelonephritis. Review of EMR, patient was seen on September 27, 2021. She was diagnosed with urinary tract infection. Labs reviewed including a leukocytosis of 17 at that time. Patient was offered CT of the abdomen and pelvis as a precaution however she declined this. Patient was given 1 g of Rocephin here and discharged on cefdinir. Urine culture ultimately revealed Klebsiella which was pansensitive. Pt seen during a time of high acuity and national emergency pandemic while wearing PPE. Home Medications Medication Instructions Recorded Confirmed Type atorvastatin 40 mg tablet 40 mg PO HS 06/19/18 10/01/21 History cetirizine 10 mg tablet 10 mg PO HS 06/19/18 10/01/21 History cholecalciferol (vitamin D3) 25 1,000 unit PO QAM 06/19/18 10/01/21 History mcg (1,000 unit) tablet (Vitamin D3) docusate sodium 100 mg tablet 100 mg PO BID PRN 06/19/18 10/01/21 History epinephrine 0.3 mg/0.3 mL 0.3 mg IM DIRECTED PRN 06/19/18 10/01/21 History injection, auto-injector (EpiPen) fentanyl 50 mcg/hr transdermal 50 mcg TRANSDERMAL [id number] 06/19/18 10/01/21 History patch methocarbamol 750 mg tablet 750 mg PO TID 06/19/18 10/01/21 History multivitamin 1 tab PO QAM 06/19/18 10/01/21 History ondansetron 8 mg disintegrating 8 mg PO BID PRN 06/19/18 10/01/21 History tablet tiotropium bromide 18 mcg capsule 1 cap INHALATION QAM 06/19/18 10/01/21 History with inhalation device (Spiriva with HandiHaler) venlafaxine 150 mg 150 mg PO QAM 06/19/18 10/01/21 History capsule,extended release 24 hr trazodone 100 mg tablet 200 mg PO HS 09/14/18 10/01/21 History venlafaxine 75 mg capsule,extended 75 mg PO QAM 09/14/18 10/01/21 History release 24 hr zolpidem 5 mg tablet 5 mg PO HS 09/14/18 10/01/21 History gabapentin 800 mg tablet 800 mg PO BID 05/28/19 10/01/21 History insulin glargine 100 unit/mL 18 unit SUBCUT BID 03/02/20 10/01/21 History subcutaneous solution (Lantus U-100 Insulin) potassium chloride 10 mEq 10 meq PO TID 03/02/20 10/01/21 History tablet,extended release levalbuterol HCl 1.25 mg/3 mL 1.25 mg INHALATION Q4H PRN 03/24/20 10/01/21 History solution for nebulization nitroglycerin 0.4 mg sublingual 0.4 mg SUBLINGUAL DIRECTED PRN 07/02/20 10/01/21 History tablet (Nitrostat) fluticasone 250 mcg-salmeterol 50 1 inh INHALATION BID 08/01/20 10/01/21 History mcg/dose blistr powdr for inhalation (Advair Diskus) calcitriol 0.25 mcg capsule 0.25 mcg PO 3XWK 10/21/20 10/01/21 History Al hyd-Mg tr-alg ac-sod bicarb 80 1 tab PO TID PRN 11/08/20 10/01/21 History mg-14.2 mg chewable tablet (Gaviscon) acetaminophen 500 mg tablet 500 mg PO Q6H PRN 11/08/20 10/01/21 History furosemide 40 mg tablet 80 mg PO BID 11/08/20 10/01/21 History melatonin 10 mg tablet 10 mg PO HS 11/08/20 10/01/21 History metoprolol succinate 100 mg 100 mg PO BID 11/08/20 10/01/21 History tablet,extended release 24 hr pantoprazole 40 mg tablet,delayed 40 mg PO BID 11/08/20 10/01/21 History release polyethylene glycol 3350 17 17 g PO DAILY PRN 11/08/20 10/01/21 History gram/dose oral powder digoxin 125 mcg (0.125 mg) tablet 125 mcg PO 3XWK 01/04/21 10/01/21 History diltiazem HCl 240 mg 240 mg PO BID 01/04/21 10/01/21 History capsule,extended release 24 hr levalbuterol tartrate 45 1 puff INHALATION Q4H PRN 01/04/21 10/01/21 History mcg/actuation aerosol inhaler (Xopenex HFA) apixaban 5 mg tablet (Eliquis) 5 mg PO BID 02/05/21 10/01/21 History aspirin 81 mg tablet,delayed 81 mg PO QAM #30 tab 02/20/21 10/01/21 Rx release amitriptyline 25 mg tablet 25 mg PO HS 03/21/21 10/01/21 History guaifenesin 600 mg tablet, 600 mg PO BID 03/21/21 10/01/21 History extended release 12 hr (Mucinex) mometasone 50 mcg/actuation nasal 2 spray INTRANASAL QPM 03/21/21 10/01/21 History spray oxycodone 5 mg tablet 5 mg PO Q6H PRN 08/09/21 10/01/21 History cefdinir 300 mg capsule 300 mg PO BID 7 Days #14 cap 09/27/21 10/01/21 Rx Allergies Allergy/AdvReac Type Severity Reaction Status Date / Time bee venom protein (honey bee) Allergy Severe Anaphylaxis Verified 10/01/21 13:56 lisinopril Allergy Severe ANGIOEDEMA, Verified 10/01/21 13:56 FACIAL CELLULITIS, RASH strawberry Allergy Severe LIPS, Verified 10/01/21 13:56 TONGUE, FACE SWELLS alprazolam Allergy Intermediate RED FACE, Verified 10/01/21 13:56 FACE SWELLING alendronate sodium Allergy Unknown ON [facility] MED Verified 10/01/21 13:56 LIST colesevelam AdvReac Intermediate Abdominal Verified 10/01/21 13:56 Pain lactose AdvReac Intermediate VOMTING Verified 10/01/21 13:56 DIARRHEA ABDOMINAL PAIN-LACTOSE INTOLERANCE lithium AdvReac Intermediate jitters Verified 10/01/21 13:56 metronidazole AdvReac Intermediate ABD PAIN, Verified 10/01/21 13:56 WEAKNESS, NAUSEA, VOMITING prednisone AdvReac Mild AGGRESSIVE Verified 10/01/21 13:56 BEHAVIOR Past Med/Surg History Medical History Anxiety Asthma 2LPM via n/c mostly continuous (although patient states she does not wear this all the time) Atrial fibrillation A fib/a. flutter s/p cardioversion and ablation (2016); s/p pacer (April 03)/ follows with Javan Maravilla Atrial flutter Follows Javan Maravilla Lynn esophagus Bipolar disorder Chronic back pain Chronic cor pulmonale Chronic right HR Chronic hyponatremia Chronic obstructive pulmonary disease 2LPM via n/c mostly continuous (although patient states she does not wear thi s all the time) sees Dr. Vickers Chronic pain Chronic respiratory failure with hypoxia, on home oxygen therapy CKD (chronic kidney disease), stage III CVA (cerebral vascular accident) 2004 (per records; patient denies) Depression Diastolic CHF, chronic DM type 2 (diabetes mellitus, type 2) Fibromyalgia Sinclair catheter in place follows with Tahira Tran Gastroparesis GERD (gastroesophageal reflux disease) History of COVID-19 + 10/11/20; fatigue, congestion; resolved. +02/2021 at [facility]. No current problems. History of DVT (deep vein thrombosis) Left "hand" 2005- on AC HTN (hypertension) Hyperlipidemia Hypothyroidism No current medication per doctor orders. 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 Vickers Severe obstructive sleep apnea CPAP Surgical History History of adenoidectomy History of appendectomy LAPAROSCOPY History of cardiac cath 2004= no stents History of cardioversion History of carpal tunnel release left History of cataract surgery BILATERAL History of cholecystectomy LAPAROSCOPY History of colonoscopy History of esophagogastroduodenoscopy (EGD) History of hysterectomy EMIGDIO WITH BSO History of mitral valve repair 2004 + resection fibroelastoma History of tonsillectomy Hx of lumpectomy right breast BENIGN Hx of tubal ligation Hx of umbilical hernia repair S/P epidural steroid injection S/P placement of cardiac pacemaker 03/2021; rapid HR; sees Javan Maravilla; unsure of brand; last check 06/27/21 S/P trigger finger release RIGHT/LEFT Family History Mother Family history of diabetes mellitus Sister Family history of diabetes mellitus Ulcerative colitis Social History Smoking Status: Current every day smoker Tobacco Type: Cigarettes Cigarettes Per Day: 10 cigs per day; Second Hand Exposure: No; Hx Alcohol Use: No Hx Substance Use: No Preferred Language: Yakut Communication Ability: Effective Visual Impairment: No Limitations Animal Science Professor Required: No Beliefs That Will Affect Care: None marital status: / Current Living Situation: Alone Current Living Situation Comment: caregiver comes daily 8-5 Friday through Friday. weekends 9-1pm Feels Safe at Home: Yes Assistive Devices: CPAP, Denture - Upper, Denture - Lower, Glasses, Oxygen - Continuous and Wheelchair Review of Systems A total of 10 systems reviewed and were otherwise negative All systems reviewed & are unremarkable except as noted in HPI & below Physical Exam Vital Signs Vital Signs - 24 hr 10/01/21 12:55 10/01/21 12:59 10/01/21 13:00 Temperature 37.7 C H Temperature Source Oral Pulse Rate 62 61 60 Pulse Rate from SpO2 Sensor 61 60 Respiratory Rate 19 16 17 Blood Pressure 142/50 H Blood Pressure Mean 80 Blood Pressure Position Lying Pulse Oximetry 95 91 96 Oxygen Delivery Method Nasal Cannula Oxygen Flow Rate 2 Sepsis Recent Fever Within 48 Hours Yes Sepsis New/Unexplained Change in Mental Status No Sepsis Action Taken by Nursing No Action Required 10/01/21 13:02 10/01/21 13:10 10/01/21 13:20 Temperature Temperature Source Pulse Rate 60 60 60 Pulse Rate from SpO2 Sensor 60 60 60 Respiratory Rate 22 21 18 Blood Pressure 169/45 H Blood Pressure Mean 86 Blood Pressure Position Pulse Oximetry 97 95 93 Oxygen Delivery Method Oxygen Flow Rate Sepsis Recent Fever Within 48 Hours Sepsis New/Unexplained Change in Mental Status Sepsis Action Taken by Nursing 10/01/21 13:30 10/01/21 13:40 10/01/21 13:50 Temperature Temperature Source Pulse Rate 60 60 60 Pulse Rate from SpO2 Sensor 60 62 60 Respiratory Rate 19 20 18 Blood Pressure Blood Pressure Mean Blood Pressure Position Pulse Oximetry 93 94 96 Oxygen Delivery Method Oxygen Flow Rate Sepsis Recent Fever Within 48 Hours Sepsis New/Unexplained Change in Mental Status Sepsis Action Taken by Nursing 10/01/21 14:00 10/01/21 14:10 10/01/21 14:21 Temperature Temperature Source Pulse Rate 60 61 Pulse Rate from SpO2 Sensor 61 60 69 Respiratory Rate 18 20 Blood Pressure 133/54 L Blood Pressure Mean 80 Blood Pressure Position Pulse Oximetry 95 95 86 L Oxygen Delivery Method Oxygen Flow Rate Sepsis Recent Fever Within 48 Hours Sepsis New/Unexplained Change in Mental Status Sepsis Action Taken by Nursing 10/01/21 14:30 10/01/21 14:40 10/01/21 14:50 Temperature Temperature Source Pulse Rate 64 64 64 Pulse Rate from SpO2 Sensor 65 64 64 Respiratory Rate 20 23 22 Blood Pressure 145/62 H Blood Pressure Mean 89 Blood Pressure Position Pulse Oximetry 94 94 93 Oxygen Delivery Method Oxygen Flow Rate Sepsis Recent Fever Within 48 Hours Sepsis New/Unexplained Change in Mental Status Sepsis Action Taken by Nursing 10/01/21 15:00 10/01/21 15:10 10/01/21 15:20 Temperature Temperature Source Pulse Rate 68 66 66 Pulse Rate from SpO2 Sensor 63 66 66 Respiratory Rate 19 18 20 Blood Pressure 158/52 H Blood Pressure Mean 87 Blood Pressure Position Pulse Oximetry 94 92 93 Oxygen Delivery Method Oxygen Flow Rate Sepsis Recent Fever Within 48 Hours Sepsis New/Unexplained Change in Mental Status Sepsis Action Taken by Nursing 10/01/21 15:30 10/01/21 15:40 10/01/21 16:09 Temperature Temperature Source Pulse Rate 66 Pulse Rate from SpO2 Sensor 66 67 Respiratory Rate 16 14 Blood Pressure Blood Pressure Mean Blood Pressure Position Pulse Oximetry 93 92 Oxygen Delivery Method Oxygen Flow Rate Sepsis Recent Fever Within 48 Hours Sepsis New/Unexplained Change in Mental Status Sepsis Action Taken by Nursing 10/01/21 16:10 10/01/21 16:20 10/01/21 16:28 Temperature Temperature Source Pulse Rate 70 71 73 Pulse Rate from SpO2 Sensor 69 69 Respiratory Rate 19 20 16 Blood Pressure 162/76 H Blood Pressure Mean 104 Blood Pressure Position Pulse Oximetry 94 95 Oxygen Delivery Method Oxygen Flow Rate Sepsis Recent Fever Within 48 Hours Sepsis New/Unexplained Change in Mental Status Sepsis Action Taken by Nursing 10/01/21 16:30 10/01/21 16:40 10/01/21 16:50 Temperature Temperature Source Pulse Rate 70 72 71 Pulse Rate from SpO2 Sensor 70 73 71 Respiratory Rate 20 19 19 Blood Pressure 144/60 H Blood Pressure Mean 88 Blood Pressure Position Pulse Oximetry 95 94 94 Oxygen Delivery Method Nasal Cannula Oxygen Flow Rate 2 Sepsis Recent Fever Within 48 Hours Sepsis New/Unexplained Change in Mental Status Sepsis Action Taken by Nursing 10/01/21 17:00 10/01/21 17:01 10/01/21 17:10 Temperature Temperature Source Pulse Rate 67 71 70 Pulse Rate from SpO2 Sensor 68 69 69 Respiratory Rate 19 21 24 Blood Pressure 115/74 Blood Pressure Mean 87 Blood Pressure Position Pulse Oximetry 94 94 94 Oxygen Delivery Method Oxygen Flow Rate Sepsis Recent Fever Within 48 Hours Sepsis New/Unexplained Change in Mental Status Sepsis Action Taken by Nursing 10/01/21 17:30 10/01/21 17:31 10/01/21 18:00 Temperature Temperature Source Pulse Rate 66 69 70 Pulse Rate from SpO2 Sensor 68 68 66 Respiratory Rate 18 16 19 Blood Pressure 146/51 H 140/56 L Blood Pressure Mean 82 84 Blood Pressure Position Pulse Oximetry 92 94 90 Oxygen Delivery Method Nasal Cannula Oxygen Flow Rate 2 Sepsis Recent Fever Within 48 Hours Sepsis New/Unexplained Change in Mental Status Sepsis Action Taken by Nursing 10/01/21 18:30 Temperature Temperature Source Pulse Rate 73 Pulse Rate from SpO2 Sensor 72 Respiratory Rate 19 Blood Pressure 129/69 Blood Pressure Mean 89 Blood Pressure Position Pulse Oximetry 90 Oxygen Delivery Method Nasal Cannula Oxygen Flow Rate 2 Sepsis Recent Fever Within 48 Hours Sepsis New/Unexplained Change in Mental Status Sepsis Action Taken by Nursing GENERAL: alert, unwell appearing, well nourished, no distress, non-toxic EYE EXAM: normal conjunctiva, PERRL and EOM's grossly intact OROPHARYNX: no exudate, no erythema, lips, buccal mucosa, and tongue normal and mucous membranes are moist NECK: supple, no nuchal rigidity, no adenopathy, non-tender LUNGS: Clear to auscultation. Normal chest wall mechanics, no w/r/r HEART: no murmurs, S1 normal and S2 normal, scars noted bilateral anterior sup erior chest wall, pacemaker present ABDOMEN: abdomen soft, tenderness with palpation along bilateral lower abdomen, dull to percussion, normo-active bowel sounds, no masses, no rebound or guarding. BACK: Back is symmetrical on inspection and there is no deformity, no midline tenderness, no CVA tenderness. SKIN: no rashes and no bruising UPPER EXTREMITIES: upper extremities are grossly normal. FROM, nml pulses b/l. LOWER EXTREMITIES: No pitting edema. FROM, nml pulses b/l. Chronic appearing skin changes noted bilateral lower extremities. NEURO EXAM: Normal sensorium, cranial nerves II-XII grossly intact, normal speech, no gross weakness of arms, no gross weakness of legs. Gross sensation intact. Course Administered Medications Discontinued Medications Lactated Ringer's (Lr) 1,000 mls @ 125 mls/hr IV .Q8H JORGE Stop: 10/31/21 13:14 Last Admin: 10/01/21 13:20 Dose: 125 mls/hr Documented by: [id number] Cefepime HCl (Maxipime) 2,000 mg in 20 mls @ 5 mls/min IV NOW STA; Protocol Stop: 10/01/21 14:09 Last Admin: 10/01/21 14:24 Dose: 5 mls/min Documented by: [id number] Magnesium Sulfate/Dextrose (Magnesium Sulfate / D5w) 1 gm in 100 mls @ 100 mls/hr IV Q1H JORGE Stop: 10/01/21 16:06 Last Infusion: 10/01/21 16:59 Dose: 0 mls/hr Documented by: [id number] Admin: 10/01/21 15:33 Dose: 100 mls/hr Documented by: [id number] Infusion: 10/01/21 15:24 Dose: 100 mls/hr Documented by: [id number] Admin: 10/01/21 14:24 Dose: 100 mls/hr Documented by: [id number] Acetaminophen (Ofirmev) 1,000 mg in 100 mls @ 400 mls/hr IV NOW STA Stop: 10/01/21 16:49 Last Infusion: 10/01/21 19:18 Dose: 0 mls/hr Documented by: [id number] Admin: 10/01/21 17:18 Dose: 400 mls/hr Documented by: [id number] Ceftriaxone Sodium (Rocephin) 1,000 mg in 50 mls @ 100 mls/hr IV NOW STA Stop: 10/01/21 18:38 Last Infusion: 10/01/21 19:17 Dose: 0 mls/hr Documented by: [id number] Admin: 10/01/21 18:34 Dose: 100 mls/hr Documented by: [id number] Medical Decision Making Differential Diagnosis Differential diagnoses includes but is not limited to gastritis, peptic ulcer disease, GERD, gallbladder disease, pancreatitis, small bowel obstruction, acute coronary syndrome, pericarditis, ischemic bowel, irritable bowel disease, irritable bowel syndrome, appendicitis, diverticulitis, malignancy, hernia, ur inary tract infection, torsion, [/ectopic (if female)], perforation, trauma, infectious. Medical Records Attestation: I reviewed the patient's medical records. Home Medications Current Medication List: was personally reviewed by me Laboratory Data Attestation: I reviewed the patient's lab results. Result diagrams: 10/01/21 13:03 10/01/21 13:03 Lab Results 10/01/21 10/01/21 10/01/21 Range/Units 13:03 13:03 13:03 WBC 27.74 H (4.8-10.8) K/uL RBC 4.62 (4.2-5.4) M/uL Hgb 14.3 (12.0-16.0) g/dL Hct 42.7 (37-47) % MCV 92.4 (80-100) fL MCH 31.0 (25-34) pg MCHC 33.5 (32-36) g/dL RDW Std Deviation 43.2 (36.4-46.3) fL RDW Coeff of King 12.8 (11.5-14.5) % Plt Count 259 (130-400) K/uL MPV 10.0 (7.4-10.4) fL Immature Gran % (Auto) 0.6 % Neut % (Auto) 88.5 % Lymph % (Auto) 4.4 % Dillon % (Auto) 6.0 % Eos % (Auto) 0.4 % Baso % (Auto) 0.1 % Neut # (Auto) 24.53 H (1.4-6.5) K/uL Lymph # (Auto) 1.22 (1.2-3.4) K/uL Dillon # (Auto) 1.67 H (0.11-0.59) K/uL Eos # (Auto) 0.12 (0-0.5) K/uL Baso # (Auto) 0.02 (0-0.2) K/uL Immature Gran # (Auto) 0.18 H (0.00-0.02) K/uL Sodium 130 L (136-145) mmol/L Potassium 3.7 (3.5-5.1) mmol/L Chloride 95 L (98-107) mmol/L Carbon Dioxide 27 (21-32) mmol/L Anion Gap 8 (3-11) BUN 21 (6-23) mg/dl Creatinine 1.61 H (0.6-1.2) mg/dl Est Cr Clr Drug Dosing 35.2 ml/min Est GFR ( Amer) 38.8 ml/min Est GFR (Non-Af Amer) 33.4 ml/min BUN/Creatinine Ratio 13.0 (10-20) Glucose 258 H (70-99(Fasting)) mg/dl Lactate (0.4-2.0) mmol/L Calcium 8.7 (8.5-10.1) mg/dl Magnesium 1.5 L (1.7-2.4) mg/dl Total Bilirubin 0.4 (0.2-1.0) mg/dl AST 14 (13-39) U/L ALT 18 (7-52) U/L Alkaline Phosphatase 103 (34-104) U/L Total Protein 6.5 (6.0-8.3) gm/dl Albumin 3.3 L (3.4-5.0) gm/dl Globulin 3.2 (2.5-4.0) gm/dl Albumin/Globulin Ratio 1.0 (0.9-2) Lipase 6 L (11-82) U/L Procalcitonin 0.27 (0-0.5) ng/ml TSH (0.300-4.500) uIu/ml Urine Color Urine Appearance (Clear) Urine pH (4.5-7.5) Ur Specific [place] (1.000-1.030) Urine Protein (Negative) Urine Glucose (UA) (Negative) Urine Ketones (Negative) Urine Blood (Negative) Urine Nitrite (Negative) Urine Bilirubin (Negative) Urine Urobilinogen (Negative) Ur Leukocyte Esterase (Negative) Urine WBC (Auto) (0-5) /hpf Urine RBC (Auto) (0-4) /hpf U Hyaline Cast (Auto) (0-5) /lpf U Epithel Cells (Auto) (0-5) /lpf Urine Bacteria (Auto) (Negative) Nasal Screen MRSA (PCR) (Negative) SARS-CoV-2, RNA, NAAT (NEGATIVE) 10/01/21 10/01/21 10/01/21 Range/Units 13:03 13:44 15:44 WBC (4.8-10.8) K/uL RBC (4.2-5.4) M/uL Hgb (12.0-16.0) g/dL Hct (37-47) % MCV (80-100) fL MCH (25-34) pg MCHC (32-36) g/dL RDW Std Deviation (36.4-46.3) fL RDW Coeff of King (11.5-14.5) % Plt Count (130-400) K/uL MPV (7.4-10.4) fL Immature Gran % (Auto) % Neut % (Auto) % Lymph % (Auto) % Dillon % (Auto) % Eos % (Auto) % Baso % (Auto) % Neut # (Auto) (1.4-6.5) K/uL Lymph # (Auto) (1.2-3.4) K/uL Dillon # (Auto) (0.11-0.59) K/uL Eos # (Auto) (0-0.5) K/uL Baso # (Auto) (0-0.2) K/uL Immature Gran # (Auto) (0.00-0.02) K/uL Sodium (136-145) mmol/L Potassium (3.5-5.1) mmol/L Chloride (98-107) mmol/L Carbon Dioxide (21-32) mmol/L Anion Gap (3-11) BUN (6-23) mg/dl Creatinine (0.6-1.2) mg/dl Est Cr Clr Drug Dosing ml/min Est GFR ( Amer) ml/min Est GFR (Non-Af Amer) ml/min BUN/Creatinine Ratio (10-20) Glucose (70-99(Fasting)) mg/dl Lactate 2.4 H* 0.6 (0.4-2.0) mmol/L Calcium (8.5-10.1) mg/dl Magnesium (1.7-2.4) mg/dl Total Bilirubin (0.2-1.0) mg/dl AST (13-39) U/L ALT (7-52) U/L Alkaline Phosphatase (34-104) U/L Total Protein (6.0-8.3) gm/dl Albumin (3.4-5.0) gm/dl Globulin (2.5-4.0) gm/dl Albumin/Globulin Ratio (0.9-2) Lipase (11-82) U/L Procalcitonin (0-0.5) ng/ml TSH 1.045 (0.300-4.500) uIu/ml Urine Color Urine Appearance (Clear) Urine pH (4.5-7.5) Ur Specific [place] (1.000-1.030) Urine Protein (Negative) Urine Glucose (UA) (Negative) Urine Ketones (Negative) Urine Blood (Negative) Urine Nitrite (Negative) Urine Bilirubin (Negative) Urine Urobilinogen (Negative) Ur Leukocyte Esterase (Negative) Urine WBC (Auto) (0-5) /hpf Urine RBC (Auto) (0-4) /hpf U Hyaline Cast (Auto) (0-5) /lpf U Epithel Cells (Auto) (0-5) /lpf Urine Bacteria (Auto) (Negative) Nasal Screen MRSA (PCR) (Negative) SARS-CoV-2, RNA, NAAT (NEGATIVE) 10/01/21 10/01/21 10/01/21 Range/Units Unknown Unknown Unknown WBC (4.8-10.8) K/uL RBC (4.2-5.4) M/uL Hgb (12.0-16.0) g/dL Hct (37-47) % MCV (80-100) fL MCH (25-34) pg MCHC (32-36) g/dL RDW Std Deviation (36.4-46.3) fL RDW Coeff of King (11.5-14.5) % Plt Count (130-400) K/uL MPV (7.4-10.4) fL Immature Gran % (Auto) % Neut % (Auto) % Lymph % (Auto) % Dillon % (Auto) % Eos % (Auto) % Baso % (Auto) % Neut # (Auto) (1.4-6.5) K/uL Lymph # (Auto) (1.2-3.4) K/uL Dillon # (Auto) (0.11-0.59) K/uL Eos # (Auto) (0-0.5) K/uL Baso # (Auto) (0-0.2) K/uL Immature Gran # (Auto) (0.00-0.02) K/uL Sodium (136-145) mmol/L Potassium (3.5-5.1) mmol/L Chloride (98-107) mmol/L Carbon Dioxide (21-32) mmol/L Anion Gap (3-11) BUN (6-23) mg/dl Creatinine (0.6-1.2) mg/dl Est Cr Clr Drug Dosing ml/min Est GFR ( Amer) ml/min Est GFR (Non-Af Amer) ml/min BUN/Creatinine Ratio (10-20) Glucose (70-99(Fasting)) mg/dl Lactate (0.4-2.0) mmol/L Calcium (8.5-10.1) mg/dl Magnesium (1.7-2.4) mg/dl Total Bilirubin (0.2-1.0) mg/dl AST (13-39) U/L ALT (7-52) U/L Alkaline Phosphatase (34-104) U/L Total Protein (6.0-8.3) gm/dl Albumin (3.4-5.0) gm/dl Globulin (2.5-4.0) gm/dl Albumin/Globulin Ratio (0.9-2) Lipase (11-82) U/L Procalcitonin (0-0.5) ng/ml TSH (0.300-4.500) uIu/ml Urine Color Dark Yellow Urine Appearance Clear (Clear) Urine pH 5.0 (4.5-7.5) Ur Specific [place] 1.007 (1.000-1.030) Urine Protein Trace H (Negative) Urine Glucose (UA) Negative (Negative) Urine Ketones Negative (Negative) Urine Blood Negative (Negative) Urine Nitrite Positive A (Negative) Urine Bilirubin Negative (Negative) Urine Urobilinogen Negative (Negative) Ur Leukocyte Esterase Trace H (Negative) Urine WBC (Auto) 1-5 (0-5) /hpf Urine RBC (Auto) 0-4 (0-4) /hpf U Hyaline Cast (Auto) 1-5 (0-5) /lpf U Epithel Cells (Auto) >30 H (0-5) /lpf Urine Bacteria (Auto) Negative (Negative) Nasal Screen MRSA (PCR) Negative (Negative) SARS-CoV-2, RNA, NAAT NEGATIVE (NEGATIVE) Imaging Data Radiologist's Impression: Abdomen/Pelvis CT 10/01/21 13:05 CT abd pelvis wo con CLINICAL HISTORY: lower abd pain, recent uti COMPARISON STUDY: 07/07/2021 CT DOSE: 591.49 mGy.cm TECHNIQUE: Standard CT of the Abdomen and Pelvis was performed without IV contrast. The patient did not receive oral contrast. A dose lowering technique was utilized adhering to the principles of ALARA. There was an attempt to give intravenous contrast. However, there is extravasation within the right upper arm. FINDINGS: Lung base: There is again asymmetric elevation left hemidiaphragm with crowding the bronchovascular markings at the left lung base. Abdominal cavity: There is no evidence for abdominal mass, adenopathy or ascites. Liver: The liver is homogeneous in attenuation on these limited noncontrast images.. Spleen: The spleen is homogeneous in attenuation on these limited noncontrast images. Pancreas: The pancreas is homogeneous in attenuation on these limited noncontrast images. Gall Bladder: Surgical clips are present from previous cholecystectomy. Adrenal glands: There is again enlargement of the left adrenal gland with an approximately 3.5 x 2.4 cm left adrenal adenoma again seen. Right adrenal gland is within normal limits. Kidneys: The kidneys are homogeneous in attenuation on these limited noncontrast images. There is no evidence for gross renal mass, calculus or hydronephrosis bilaterally. There is minimal intravenous contrast within the renal collecting systems bilaterally. Bowel: Compared to previous examination, there has been interval development of diffuse mucosal thickening throughout almost the entire colon with mild pericolonic inflammatory changes present. The findings are most characteristic of an infectious versus inflammatory colitis. However, no inflammatory changes are seen involving the rectum. The small bowel loops are normally placed within the abdomen and pelvis without evidence for dilatation or obstruction. There is no evidence for mass lesion. There is no evidence for free air. There is evidence for a surgical clip from previous appendectomy. Bladder: There is gross distention of the bladder with no evidence for focal bladder wall thickening, calculus or diverticulum. : There is no evidence for pelvic mass or adenopathy. Vasculature: There is no evidence for focal aneurysmal dilatation of the abdominal aorta. Atherosclerotic calcification is present. Osseous structures: There is no acute osseous pathology. Degenerative changes are again seen within the lumbar spine. IMPRESSION: 1. Interval development of diffuse mucosal thickening of the majority of the colon with exclusion of the rectum. Pericolonic inflammatory changes are present in the findings are characteristic of an infectious versus inflammatory colitis. 2. Normal-appearing small bowel. 3. Gross distention of the urinary bladder. 4. Additional nonacute findings are delineated above. ACT 112: Negative or not required by law. Electronically signed by: Gonsalo Rehman M.D. 10/01/2021 4:17 PM ECG Data Attestation: I personally reviewed and interpreted this ECG as follows: Indication: + abdominal pain Rate (beats per minute): 60 Rhythm: + other ECG Intervals/blocks: + IVCD and + Normal QT ECG [place]: + Normal ECG ST segments: + Nonspecific ST abnormalities Additional Comments: Paced MDM Narrative This is a 65-year-old female with complicated past medical history who presents due to concern for worsening abdominal pain. Patient with recent evaluation for urinary symptoms, abdominal pain, and found to have a urinary tract infection. Based on culture results, the antibiotic patient was taking should have covered this. Patient was afebrile and hemodynamically stable. Labs drawn and sent and showed a worsening leukocytosis compared to prior. Patient's initial lactic acid elevated. Patient was started on gentle IV fluid rehydration, she was not bolus due to history of chronic kidney disease and congestive heart failure. Patient sent for CT imaging, and found to have colitis. Patient denied any recent change in stools or diarrhea. Likely patient could have abdominal pain from both this as well as residual UTI. Due to concern for evolving sepsis or failure of her outpatient therapy, case was discussed with hospitalist for additional evaluation and management. Patient remained hemodynamically stable while in the emergency room. I did discuss all results with her as well as the need for additional inpatient treatment, she verbalized understanding and was in agreement with plan. Patient initially was given a dose of cefepime IV due to consideration for multiple etiologies of her abdominal pain as well as the worsening leukocytosis. MRSA nasal swab was added and sent, COVID swab added and sent. Patient's hypomagnesemia was repleted through the IV while in the emergency room awaiting additional results. An order was placed for continuous cardiac monitoring. The monitor shows a rate of _76__ with _paced_ rhythm. Impression & Plan Abdominal pain, Chronic obstructive pulmonary disease, Chronic back pain, Chronic respiratory failure with hypoxia, on home O2 therapy, Colitis, UTI (urinary tract infection), Hypomagnesemia Discharge Plan Visit Data Chief Complaint: Abdominal Pain Stated Complaint: uti , fever, weakness ED Provider: Stephie Sanchez Discharge Problem: Abdominal pain, Chronic obstructive pulmonary disease, Chronic back pain, Chronic respiratory failure with hypoxia, on home O2 therapy, Colitis, UTI (urinary tract infection), Hypomagnesemia Patient Disposition: Being Evaluated by Hospitalist Condition: Good Prescriptions Prescriptions: No Action gabapentin 800 mg Tablet 800 mg PO BID RF: 0 potassium chloride 10 mEq tablet extended release 10 meq PO TID RF: 0 Lantus U-100 Insulin 100 unit/mL solution 18 unit SUBCUT BID RF: 0 nitroglycerin [Nitrostat] 0.4 mg tablet, sublingual 0.4 mg sublingual DIRECTED PRN (Reason: Chest Pain) RF: 0 multivitamin Tablet 1 tab PO QAM RF: 0 atorvastatin 40 mg Tablet 40 mg PO HS RF: 0 fentanyl 50 mcg/hr Patch 72 Hour 50 mcg TRANSDERMAL [id number] RF: 0 cetirizine 10 mg Tablet 10 mg PO HS RF: 0 venlafaxine 150 mg Capsule,Extended Release 24hr 150 mg PO QAM RF: 0 ondansetron 8 mg Tablet,Disintegrating 8 mg PO BID PRN (Reason: Nausea) RF: 0 methocarbamol 750 mg Tablet 750 mg PO TID RF: 0 epinephrine [EpiPen] 0.3 mg/0.3 mL Auto-Injector 0.3 mg IM DIRECTED PRN (Reason: Allergic Reaction) RF: 0 docusate sodium 100 mg Tablet 100 mg PO BID PRN (Reason: Constipation) RF: 0 Spiriva with HandiHaler 18 mcg Capsule, W/Inhalation Device 1 cap INHALATION QAM RF: 0 cholecalciferol (vitamin D3) [Vitamin D3] 1,000 unit Tablet 1,000 unit PO QAM RF: 0 venlafaxine 75 mg Capsule,Extended Release 24hr 75 mg PO QAM RF: 0 trazodone 100 mg Tablet 200 mg PO HS RF: 0 zolpidem 5 mg Tablet 5 mg PO HS RF: 0 levalbuterol HCl 1.25 mg/3 mL solution for nebulization 1.25 mg INHALATION Q4H PRN (Reason: Wheezing) RF: 0 fluticasone propion-salmeterol [Advair Diskus] 250-50 mcg/dose blister with device 1 inh INHALATION BID RF: 0 calcitriol 0.25 mcg capsule 0.25 mcg PO 3XWK RF: 0 acetaminophen 500 mg Tablet 500 mg PO Q6H PRN (Reason: Pain, Mild/Moderate) RF: 0 pantoprazole 40 mg tablet,delayed release (DR/EC) 40 mg PO BID RF: 0 metoprolol succinate 100 mg tablet extended release 24 hr 100 mg PO BID RF: 0 Gaviscon 80-14.2 mg tablet,chewable 1 tab PO TID PRN (Reason: Reflux) RF: 0 polyethylene glycol 3350 17 gram/dose Powder 17 g PO DAILY PRN (Reason: Constipation) RF: 0 melatonin 10 mg Tablet 10 mg PO HS RF: 0 furosemide 40 mg tablet 80 mg PO BID RF: 0 Eliquis 5 mg tablet 5 mg PO BID RF: 0 oxycodone 5 mg tablet 5 mg PO Q6H PRN (Reason: Pain) RF: 0 cefdinir 300 mg capsule 300 mg PO BID 7 Days Qty: 14 RF: 0 digoxin 125 mcg (0.125 mg) tablet 125 mcg PO 3XWK RF: 0 levalbuterol tartrate [Xopenex HFA] 45 mcg/actuation Hfa Aerosol Inhaler 1 puff INHALATION Q4H PRN (Reason: WHEEZING, IF NEB NOT AVAILABLE.) RF: 0 diltiazem HCl 240 mg capsule,extended release 24hr 240 mg PO BID RF: 0 aspirin 81 mg Tablet,Delayed Release (Dr/Ec) 81 mg PO QAM Qty: 30 RF: 0 mometasone 50 mcg/actuation spray,non-aerosol 2 spray INTRANASAL QPM RF: 0 amitriptyline 25 mg tablet 25 mg PO HS RF: 0 guaifenesin [Mucinex] 600 mg Tablet Extended Release 12hr 600 mg PO BID RF: 0 Referrals Referrals: aMnoj Goins, [Primary Care Provider] -
[2021-10-01 13:34] LABS: Albumin Level 3.3 gm/dl (3.4-5.0); Bilirubin,Total 0.4 mg/dl (0.2-1.0); Calcium 8.7 mg/dl (8.5-10.1); Creatinine Clr Calc Pharmacy 35.2 ml/min; Est GFR (African American) 38.8 ml/min; Est GFR (Non-African American) 33.4 ml/min; Globulin 3.2 gm/dl (2.5-4.0); Magnesium 1.5 mg/dl (1.7-2.4); Potassium 3.7 mmol/L (3.5-5.1); Total Protein 6.5 gm/dl (6.0-8.3)
--- NOTE | 2021-10-01 13:49 | Electrocardiogram Report ---
Test Reason : Blood Pressure : / mmHG Vent. Rate : 060 BPM Atrial Rate : 060 BPM P-R Int : 218 ms QRS Dur : 146 ms QT Int : 416 ms P-R-T Axes : 078 094 010 degrees QTc Int : 416 ms Poor data quality, interpretation may be adversely affected Atrial-paced rhythm with prolonged AV conduction Right bundle branch block with repolarization abnormality Nonspecific T wave abnormality Inferior leads Abnormal ECG When compared with ECG of 21-MAR-2021 22:01, Electronic atrial pacemaker has replaced Atrial flutter Confirmed by Noé Hernandez ([id number]) on 10/01/2021 1:49:16 PM Referred By: REFERRED SELF Confirmed By:Noé Hernandez
[2021-10-01 13:51] LABS: Basophils # (auto) 0.02 K/uL (0-0.2); Basophils % (auto) 0.1 %; Eosinophils # (auto) 0.12 K/uL (0-0.5); Eosinophils % (auto) 0.4 %; Immature Granulocytes # (auto) 0.18 K/uL (0.00-0.02); Immature Granulocytes % (auto) 0.6 %; Lymphocytes # (auto) 1.22 K/uL (1.2-3.4); Lymphocytes % (auto) 4.4 %; Monocytes # (auto) 1.67 K/uL (0.11-0.59); Neutrophils # (auto) 24.53 K/uL (1.4-6.5); Neutrophils % (auto) 88.5 %
[2021-10-01] MEDS ORDERED: CEFEPIME 2,000 MG/20 ML VIAL IV STA (14:06)
[2021-10-01] MEDS: MAGNESIUM SULFATE / D5W 1 GM/100 ML BAG IV SCH ×2 (14:24→15:33)
[2021-10-01 15:11] LABS: Appearance Urine Clear (Clear); Bacteria Urine Automated Negative (Negative); Bilirubin Urine Negative (Negative); Blood Urine Negative (Negative); Color Urine Dark Yellow; Epithelial Cell Urine Auto >30 /lpf (0-5); Glucose Urine UA Negative (Negative); Ketones Urine Negative (Negative); Leukocyte Esterase Urine Trace (Negative); Nitrite Urine Positive (Negative); Protein Urine Trace (Negative); RBC Urine Automated 0-4 /hpf (0-4); Specific Gravity Urine 1.007 (1.000-1.030); Urobilinogen Urine Negative (Negative)
--- NOTE | 2021-10-01 16:19 | CT Scan Report ---
CT abd pelvis wo con CLINICAL HISTORY: lower abd pain, recent uti COMPARISON STUDY: 07/07/2021 CT DOSE: 591.49 mGy.cm TECHNIQUE: Standard CT of the Abdomen and Pelvis was performed without IV contrast. The patient did not receive oral contrast. A dose lowering technique was utilized adhering to the principles of ALAR A. There was an attempt to give intravenous contrast. However, there is extravasation within the right u pper arm. FINDINGS: Lung base: There is again asymmetric elevation left hemidiaphragm with crowding the bronchovascular markings at the left lung base. Abdominal cavity: There is no evidence for abdominal mass, adenopathy or ascites. Liver: The liver is homogeneous in attenuation on these limited noncontrast images.. Spleen: The spleen is homogeneous in attenuation on these limited noncontrast images. Pancreas: The pancreas is homogeneous in attenuation on these limited noncontrast images. Gall Bladder: Surgical clips are present from previous cholecystectomy. Adrenal glands: There is again enlargement of the left adrenal gland with an approximately 3.5 x 2.4 cm left adrenal adenoma again seen. Right adrenal gland is within normal limits. Kidneys: The kidneys are homogeneous in attenuation on these limited noncontrast images. There is no evidence for gross renal mass, calculus or hydronephrosis bilaterally. There is minimal intravenous c ontrast within the renal collecting systems bilaterally. Bowel: Compared to previous examination, there has been interval development of diffuse mucosal thick ening throughout almost the entire colon with mild pericolonic inflammatory changes present. The find ings are most characteristic of an infectious versus inflammatory colitis. However, no inflammatory c hanges are seen involving the rectum. The small bowel loops are normally placed within the abdomen and pelvis without evidence for dilatat ion or obstruction. There is no evidence for mass lesion. There is no evidence for free air. There is evidence for a surgical clip from previous appendectomy. Bladder: There is gross distention of the bladder with no evidence for focal bladder wall thickening, calculus or diverticulum. : There is no evidence for pelvic mass or adenopathy. Vasculature: There is no evidence for focal aneurysmal dilatation of the abdominal aorta. Atheroscler otic calcification is present. Osseous structures: There is no acute osseous pathology. Degenerative changes are again seen within t he lumbar spine. IMPRESSION: 1. Interval development of diffuse mucosal thickening of the majority of the colon with exclusion of the rectum. Pericolonic inflammatory changes are present in the findings are characteristic of an inf ectious versus inflammatory colitis. 2. Normal-appearing small bowel. 3. Gross distention of the urinary bladder. 4. Additional nonacute findings are delineated above. ACT 112: Negative or not required by law. Electronically signed by: Gonsalo Rehman M.D. 10/01/2021 4:17 PM
[2021-10-01] MEDS ORDERED: ACETAMINOPHEN 1,000 MG/100 ML VIAL IV STA (16:35)
[2021-10-01] MEDS ORDERED: fentaNYL citrate 100 MCG/2 ML VIAL IV PRN (16:35)
--- NOTE | 2021-10-01 17:04 | History & Physical Report ---
Date of Service October 01, 2021 Assessment & Plan (1) Lower abdominal pain: (2) Acute UTI: Plan: - cont IV rocephin - UA Still appears to be infection noted, previous urine culture was pansensitive -Urinary symptoms have since improved since Friday. -Consider urology consult, patient does have history of retention, monitor strict I's and O's (3) Atrial fibrillation: Plan: -History of such, rate controlled, continue Eliquis (4) Diastolic CHF, chronic: Plan: -History of such, her chronic dry weight is 163 pounds, she feels that she has lost a slight amount of weight due to appetite depression in the past few days -Given fluids here in the ER, monitor strict I's/O's, no peripheral edema, no JVD suggestive of volume overload, if anything she appears to be slightly dry (5) Hyperlipidemia: Plan: -Continue statin therapy (6) HTN (hypertension): Plan: -Continue metoprolol succinate 100 mg twice daily, digoxin and Friday (7) Chronic respiratory failure with hypoxia, on home oxygen therapy: Plan: -Wears 2L chronically, smokes half pack per day x42 years -Cessation encouraged -Nicotine patch ordered -Does not appear to be in acute respiratory failure presently, Negative COVID on admission (8) Chronic cor pulmonale: Plan: -History of such, stable (9) DM type 2 (diabetes mellitus, type 2): Plan: -ISS with Accu-Cheks ACH S, glucose was 258 on admission, likely elevated secondary to acute infection as she has not eaten today, takes Lantus 16 units twice daily, will reduce in half while n.p.o. (10) Hypothyroidism: Plan: -Continue levothyroxine, TSH is WNL (11) Chronic obstructive pulmonary disease: Plan: - Chronic, continue supplemental O2 2 L History of Present Illness Chief Complaint: Abdominal pain Primary Care Provider: Manoj Goins, This is a 65-year-old female with PMHx of A. fib on Eliquis, chronic diastolic CHF, HTN, HLD, status post mitral valve repair in 2004, chronic cor pulmonale, chronic hyponatremia, COPD (current smoker) CKD stage III, hypothyroidism, history of DVT in left hand and left leg, DM type II, bipolar, depression, anxiety, and history of COVID infection in September 2020. She was present in the ER on Friday, 09/29 where she was diagnosed with a UTI due to a positive UA and was placed on cefdinir. Since then she reports improvement of her urinary symptoms with frequency and burning however notes that there is increased abdominal pain, increased weakness and decreased appetite. She reports having diarrhea te last few days and currently having lower abdominal pain. Pt also admits to having a low grade fever of 99.3 yesterday. She is taking the antibiotics as directed for UTI.. She has noticed worsening smells with her bowels these past few days. Urology follows Dr. Zaidi as outpatient for urinary retention and previously needed to prn straight cath, but none recently. Chronically she wears 2 L O2, and smokes 1/2 ppd x 42 years. Denies alcohol use. Denies any illicit drug use. Today CT abdomen was completed and shows possible infectious versus inflammatory colitis, and was placed on IV cefepime by ER. Her lactic acid was elevated at 2.4. WBC elevated at 27 K and LA was 2.7 on admission. Negative COVID screen on admission. Allergies Allergy/AdvReac Type Severity Reaction Status Date / Time bee venom protein (honey bee) Allergy Severe Anaphylaxis Verified 10/01/21 13:56 lisinopril Allergy Severe ANGIOEDEMA, Verified 10/01/21 13:56 FACIAL CELLULITIS, RASH strawberry Allergy Severe LIPS, Verified 10/01/21 13:56 TONGUE, FACE SWELLS alprazolam Allergy Intermediate RED FACE, Verified 10/01/21 13:56 FACE SWELLING alendronate sodium Allergy Unknown ON [facility] MED Verified 10/01/21 13:56 LIST colesevelam AdvReac Intermediate Abdominal Verified 10/01/21 13:56 Pain lactose AdvReac Intermediate VOMTING Verified 10/01/21 13:56 DIARRHEA ABDOMINAL PAIN-LACTOSE INTOLERANCE lithium AdvReac Intermediate jitters Verified 10/01/21 13:56 metronidazole AdvReac Intermediate ABD PAIN, Verified 10/01/21 13:56 WEAKNESS, NAUSEA, VOMITING prednisone AdvReac Mild AGGRESSIVE Verified 10/01/21 13:56 BEHAVIOR Home Medications Medication Instructions Recorded Confirmed Type atorvastatin 40 mg tablet 40 mg PO HS 06/19/18 10/01/21 History cetirizine 10 mg tablet 10 mg PO HS 06/19/18 10/01/21 History cholecalciferol (vitamin D3) 25 1,000 unit PO QAM 06/19/18 10/01/21 History mcg (1,000 unit) tablet (Vitamin D3) docusate sodium 100 mg tablet 100 mg PO BID PRN 06/19/18 10/01/21 History epinephrine 0.3 mg/0.3 mL 0.3 mg IM DIRECTED PRN 06/19/18 10/01/21 History injection, auto-injector (EpiPen) fentanyl 50 mcg/hr transdermal 50 mcg TRANSDERMAL [id number] 06/19/18 10/01/21 History patch methocarbamol 750 mg tablet 750 mg PO TID 06/19/18 10/01/21 History multivitamin 1 tab PO QAM 06/19/18 10/01/21 History ondansetron 8 mg disintegrating 8 mg PO BID PRN 06/19/18 10/01/21 History tablet tiotropium bromide 18 mcg capsule 1 cap INHALATION QAM 06/19/18 10/01/21 History with inhalation device (Spiriva with HandiHaler) venlafaxine 150 mg 150 mg PO QAM 06/19/18 10/01/21 History capsule,extended release 24 hr trazodone 100 mg tablet 200 mg PO HS 09/14/18 10/01/21 History venlafaxine 75 mg capsule,extended 75 mg PO QAM 09/14/18 10/01/21 History release 24 hr zolpidem 5 mg tablet 5 mg PO HS 09/14/18 10/01/21 History gabapentin 800 mg tablet 800 mg PO BID 05/28/19 10/01/21 History insulin glargine 100 unit/mL 18 unit SUBCUT BID 03/02/20 10/01/21 History subcutaneous solution (Lantus U-100 Insulin) potassium chloride 10 mEq 10 meq PO TID 03/02/20 10/01/21 History tablet,extended release levalbuterol HCl 1.25 mg/3 mL 1.25 mg INHALATION Q4H PRN 03/24/20 10/01/21 History solution for nebulization nitroglycerin 0.4 mg sublingual 0.4 mg SUBLINGUAL DIRECTED PRN 07/02/20 10/01/21 History tablet (Nitrostat) fluticasone 250 mcg-salmeterol 50 1 inh INHALATION BID 08/01/20 10/01/21 History mcg/dose blistr powdr for inhalation (Advair Diskus) calcitriol 0.25 mcg capsule 0.25 mcg PO 3XWK 10/21/20 10/01/21 History Al hyd-Mg tr-alg ac-sod bicarb 80 1 tab PO TID PRN 11/08/20 10/01/21 History mg-14.2 mg chewable tablet (Gaviscon) acetaminophen 500 mg tablet 500 mg PO Q6H PRN 11/08/20 10/01/21 History furosemide 40 mg tablet 80 mg PO BID 11/08/20 10/01/21 History melatonin 10 mg tablet 10 mg PO HS 11/08/20 10/01/21 History metoprolol succinate 100 mg 100 mg PO BID 11/08/20 10/01/21 History tablet,extended release 24 hr pantoprazole 40 mg tablet,delayed 40 mg PO BID 11/08/20 10/01/21 History release polyethylene glycol 3350 17 17 g PO DAILY PRN 11/08/20 10/01/21 History gram/dose oral powder digoxin 125 mcg (0.125 mg) tablet 125 mcg PO 3XWK 01/04/21 10/01/21 History diltiazem HCl 240 mg 240 mg PO BID 01/04/21 10/01/21 History capsule,extended release 24 hr levalbuterol tartrate 45 1 puff INHALATION Q4H PRN 01/04/21 10/01/21 History mcg/actuation aerosol inhaler (Xopenex HFA) apixaban 5 mg tablet (Eliquis) 5 mg PO BID 02/05/21 10/01/21 History aspirin 81 mg tablet,delayed 81 mg PO QAM #30 tab 02/20/21 10/01/21 Rx release amitriptyline 25 mg tablet 25 mg PO HS 03/21/21 10/01/21 History guaifenesin 600 mg tablet, 600 mg PO BID 03/21/21 10/01/21 History extended release 12 hr (Mucinex) mometasone 50 mcg/actuation nasal 2 spray INTRANASAL QPM 03/21/21 10/01/21 History spray oxycodone 5 mg tablet 5 mg PO Q6H PRN 08/09/21 10/01/21 History cefdinir 300 mg capsule 300 mg PO BID 7 Days #14 cap 09/27/21 10/01/21 Rx Past Med/Surg History Medical History Anxiety Asthma 2LPM via n/c mostly continuous (although patient states she does not wear this all the time) Atrial fibrillation A fib/a. flutter s/p cardioversion and ablation (2016); s/p pacer (March 2021)/ follows with Javan Maravilla Atrial flutter Follows Javan Maravilla Lynn esophagus Bipolar disorder Chronic back pain Chronic cor pulmonale Chronic right HR Chronic hyponatremia Chronic obstructive pulmonary disease 2LPM via n/c mostly continuous (although patient states she does not wear this all the time) sees Dr. Vickers Chronic pain Chronic respiratory failure with hypoxia, on home oxygen therapy CKD (chronic kidney disease), stage III CVA (cerebral vascular accident) 2004 (per records; patient denies) Depression Diastolic CHF, chronic DM type 2 (diabetes mellitus, type 2) Fibromyalgia Sinclair catheter in place follows with Tahira Tran Gastroparesis GERD (gastroesophageal reflux disease) History of COVID-19 + 10/11/20; fatigue, congestion; resolved. +02/2021 at [facility]. No current problems. History of DVT (deep vein thrombosis) Left "hand" 2004- on AC HTN (hypertension) Hyperlipidemia Hypothyroidism No current medication per doctor orders. 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 Vickers Severe obstructive sleep apnea CPAP Surgical History History of adenoidectomy History of appendectomy LAPAROSCOPY History of cardiac cath 2004= no stents History of cardioversion History of carpal tunnel release left History of cataract surgery BILATERAL History of cholecystectomy LAPAROSCOPY History of colonoscopy History of esophagogastroduodenoscopy (EGD) History of hysterectomy EMIGDIO WITH BSO History of mitral valve repair 2004 + resection fibroelastoma History of tonsillectomy Hx of lumpectomy right breast BENIGN Hx of tubal ligation Hx of umbilical hernia repair S/P epidural steroid injection S/P placement of cardiac pacemaker 03/2021; rapid HR; sees Javan Hannaho; unsure of brand; last check 06/27/21 S/P trigger finger release RIGHT/LEFT Family History Mother Family history of diabetes mellitus Sister Family history of diabetes mellitus Ulcerative colitis Social History Smoking Status: Current every day smoker Tobacco Type: Cigarettes Cigarettes Per Day: 10 cigs per day; Second Hand Exposure: No; Hx Alcohol Use: No Hx Substance Use: No Preferred Language: Kyrgyz Communication Ability: Effective Visual Impairment: No Limitations Shank Carrier Required: No Beliefs That Will Affect Care: None marital status: / Current Living Situation: Alone Current Living Situation Comment: caregiver comes daily 8-5 Friday through ay. weekends 9-1pm Feels Safe at Home: Yes Assistive Devices: CPAP, Denture - Upper, Denture - Lower, Glasses, Oxygen - Continuous and Wheelchair Review of Systems Review of Systems: Constitutional: No fever, sweats or chills Eyes: No diplopia, no worsening or blurred vision ENT: normal hearing, no trouble swallowing Respiratory: No cough, sputum, dyspnea at rest or on exertion Cardiovascular: No chest pain, tightness or palpitations Abdomen: + lower abdominal pain, +nausea, no vomiting, + diarrhea, no constipation Musculoskeletal: No joint pain, calf pain, swelling Neurologic: No weakness, numbness/tingling, or balance problems, uses a walker at baseline Psychiatric: No anxiety or depression Skin: No rash or itch Physical Exam Physical Exam: General: awake, alert, no apparent distress, appears older than stated age, chronically ill Head: Normocephalic, atraumatic ENT: PERRL, EOMI, no pharyngeal exudate, mucous membranes dry Chest: Coarse breath sounds throughout, on 2 L via NC, no wheeze Cardiac: Regular rate and rhythm, no murmur, no JVD, normal peripheral pulses, good capillary refill Abdominal: NABS x 4 quadrants, soft, +distended, + tender to palpation in RLQ and LLQ, no rebound or guarding Extremities: Normal inspection, no peripheral edema or erythema, calfs nontender to palpation Psych: Normal mood and affect Neuro: AAO x 3, strength intact bilaterally and rated 5/5, no motor deficits, speech is clear, no peripheral sensory deficits Results & Data Results & Data ([facility]) Vital Signs (Past 12 Hours) Vital Signs Temp Pulse Resp BP Pulse Ox 10/01/21 16:28 73 16 162/76 H 95 10/01/21 16:20 71 20 94 10/01/21 16:10 70 19 10/01/21 16:09 14 10/01/21 15:40 92 10/01/21 15:30 66 16 93 10/01/21 15:20 66 20 93 10/01/21 15:10 66 18 92 10/01/21 15:00 68 19 158/52 H 94 10/01/21 14:50 64 22 93 10/01/21 14:40 64 23 94 10/01/21 14:30 64 20 145/62 H 94 10/01/21 14:21 86 L 10/01/21 14:10 61 20 95 10/01/21 14:00 60 18 133/54 L 95 10/01/21 13:50 60 18 96 10/01/21 13:40 60 20 94 10/01/21 13:30 60 19 93 10/01/21 13:20 60 18 93 10/01/21 13:10 60 21 95 10/01/21 13:02 60 22 169/45 H 97 10/01/21 13:00 60 17 96 10/01/21 12:59 37.7 C H 61 16 142/50 H 91 10/01/21 12:55 62 19 95 Laboratory Results 10/01/21 13:44 Aerobic Blood Culture - Pending Blood Anaerobic Blood Culture - Pending 10/01/21 13:03 Aerobic Blood Culture - Pending Blood Anaerobic Blood Culture - Pending 10/01/21 10/01/21 10/01/21 Unknown Unknown Unknown WBC RBC Hgb Hct MCV MCH MCHC RDW Std Deviation RDW Coeff of King Plt Count MPV Immature Gran % (Auto) Neut % (Auto) Lymph % (Auto) Posey % (Auto) Eos % (Auto) Baso % (Auto) Neut # (Auto) Lymph # (Auto) Posey # (Auto) Eos # (Auto) Baso # (Auto) Immature Gran # (Auto) Sodium Potassium Chloride Carbon Dioxide Anion Gap BUN Creatinine Est Cr Clr Drug Dosing Est GFR ( Amer) Est GFR (Non-Af Amer) BUN/Creatinine Ratio Glucose Lactate Calcium Magnesium Total Bilirubin AST ALT Alkaline Phosphatase Total Protein Albumin Globulin Albumin/Globulin Ratio Lipase Procalcitonin TSH Urine Color Dark Yellow Urine Appearance Clear Urine pH 5.0 Ur Specific [place]ree 1.007 Urine Protein Trace H Urine Glucose (UA) Negative Urine Ketones Negative Urine Blood Negative Urine Nitrite Positive A Urine Bilirubin Negative Urine Urobilinogen Negative Ur Leukocyte Esterase Trace H Urine WBC (Auto) 1-5 Urine RBC (Auto) 0-4 U Hyaline Cast (Auto) 1-5 U Epithel Cells (Auto) >30 H Urine Bacteria (Auto) Negative Nasal Screen MRSA (PCR) Negative SARS-CoV-2, RNA, NAAT NEGATIVE 10/01/21 10/01/21 10/01/21 15:44 13:44 13:03 WBC RBC Hgb Hct MCV MCH MCHC RDW Std Deviation RDW Coeff of King Plt Count MPV Immature Gran % (Auto) Neut % (Auto) Lymph % (Auto) Posey % (Auto) Eos % (Auto) Baso % (Auto) Neut # (Auto) Lymph # (Auto) Posey # (Auto) Eos # (Auto) Baso # (Auto) Immature Gran # (Auto) Sodium Potassium Chloride Carbon Dioxide Anion Gap BUN Creatinine Est Cr Clr Drug Dosing Est GFR ( Amer) Est GFR (Non-Af Amer) BUN/Creatinine Ratio Glucose Lactate 0.6 2.4 H* Calcium Magnesium Total Bilirubin AST ALT Alkaline Phosphatase Total Protein Albumin Globulin Albumin/Globulin Ratio Lipase Procalcitonin TSH 1.045 Urine Color Urine Appearance Urine pH Ur Specific G[place] Urine Protein Urine Glucose (UA) Urine Ketones Urine Blood Urine Nitrite Urine Bilirubin Urine Urobilinogen Ur Leukocyte Esterase Urine WBC (Auto) Urine RBC (Auto) U Hyaline Cast (Auto) U Epithel Cells (Auto) Urine Bacteria (Auto) Nasal Screen MRSA (PCR) SARS-CoV-2, RNA, NAAT 10/01/21 10/01/21 10/01/21 13:03 13:03 13:03 WBC 27.74 H RBC 4.62 Hgb 14.3 Hct 42.7 MCV 92.4 MCH 31.0 MCHC 33.5 RDW Std Deviation 43.2 RDW Coeff of King 12.8 Plt Count 259 MPV 10.0 Immature Gran % (Auto) 0.6 Neut % (Auto) 88.5 Lymph % (Auto) 4.4 Posey % (Auto) 6.0 Eos % (Auto) 0.4 Baso % (Auto) 0.1 Neut # (Auto) 24.53 H Lymph # (Auto) 1.22 Posey # (Auto) 1.67 H Eos # (Auto) 0.12 Baso # (Auto) 0.02 Immature Gran # (Auto) 0.18 H Sodium 130 L Potassium 3.7 Chloride 95 L Carbon Dioxide 27 Anion Gap 8 BUN 21 Creatinine 1.61 H Est Cr Clr Drug Dosing 35.2 Est GFR ( Amer) 38.8 Est GFR (Non-Af Amer) 33.4 BUN/Creatinine Ratio 13.0 Glucose 258 H Lactate Calcium 8.7 Magnesium 1.5 L Total Bilirubin 0.4 AST 14 ALT 18 Alkaline Phosphatase 103 Total Protein 6.5 Albumin 3.3 L Globulin 3.2 Albumin/Globulin Ratio 1.0 Lipase 6 L Procalcitonin 0.27 TSH Urine Color Urine Appearance Urine pH Ur Specific G[place] Urine Protein Urine Glucose (UA) Urine Ketones Urine Blood Urine Nitrite Urine Bilirubin Urine Urobilinogen Ur Leukocyte Esterase Urine WBC (Auto) Urine RBC (Auto) U Hyaline Cast (Auto) U Epithel Cells (Auto) Urine Bacteria (Auto) Nasal Screen MRSA (PCR) SARS-CoV-2, RNA, NAAT Diagnostic Findings Abdomen/Pelvis CT 10/01/21 13:05 CT abd pelvis wo con CLINICAL HISTORY: lower abd pain, recent uti COMPARISON STUDY: 07/07/2021 CT DOSE: 591.49 mGy.cm TECHNIQUE: Standard CT of the Abdomen and Pelvis was performed without IV contrast. The patient did not receive oral contrast. A dose lowering technique was utilized adhering to the principles of ALARA. There was an attempt to give intravenous contrast. However, there is extravasation within the right upper arm. FINDINGS: Lung base: There is again asymmetric elevation left hemidiaphragm with crowding the bronchovascular markings at the left lung base. Abdominal cavity: There is no evidence for abdominal mass, adenopathy or ascites. Liver: The liver is homogeneous in attenuation on these limited noncontrast images.. Spleen: The spleen is homogeneous in attenuation on these limited noncontrast images. Pancreas: The pancreas is homogeneous in attenuation on these limited noncontrast images. Gall Bladder: Surgical clips are present from previous cholecystectomy. Adrenal glands: There is again enlargement of the left adrenal gland with an approximately 3.5 x 2.4 cm left adrenal adenoma again seen. Right adrenal gland is within normal limits. Kidneys: The kidneys are homogeneous in attenuation on these limited noncontrast images. There is no evidence for gross renal mass, calculus or hydronephrosis bilaterally. There is minimal intravenous contrast within the renal collecting systems bilaterally. Bowel: Compared to previous examination, there has been interval development of diffuse mucosal thickening throughout almost the entire colon with mild pericolonic inflammatory changes present. The findings are most characteristic of an infectious versus inflammatory colitis. However, no inflammatory changes are seen involving the rectum. The small bowel loops are normally placed within the abdomen and pelvis without evidence for dilatation or obstruction. There is no evidence for mass lesion. There is no evidence for free air. There is evidence for a surgical clip from previous appendectomy. Bladder: There is gross distention of the bladder with no evidence for focal bladder wall thickening, calculus or diverticulum. : There is no evidence for pelvic mass or adenopathy. Vasculature: There is no evidence for focal aneurysmal dilatation of the abdomi nal aorta. Atherosclerotic calcification is present. Osseous structures: There is no acute osseous pathology. Degenerative changes are again seen within the lumbar spine. IMPRESSION: 1. Interval development of diffuse mucosal thickening of the majority of the colon with exclusion of the rectum. Pericolonic inflammatory changes are present in the findings are characteristic of an infectious versus inflammatory colitis. 2. Normal-appearing small bowel. 3. Gross distention of the urinary bladder. 4. Additional nonacute findings are delineated above. ACT 112: Negative or not required by law. Electronically signed by: Gonsalo Rehman M.D. 10/01/2021 4:17 PM Code Status & VTE Plan Code Status DNR/DNI - discussed with the patient at bedside Supervising Physician Co-Signing Physician Notes 65-year-old female with PMHx of A. fib on Eliquis, chronic diastolic CHF, HTN, HLD, status post mitral valve repair in 2004, chronic cor pulmonale, chronic hyponatremia, COPD (current smoker, 1/2 PPD since 42 yrs), CKD stage III, hypoth yroidism, history of DVT in left hand and left leg, DM type II, bipolar, depression, anxiety, and history of COVID infection in September 2020 presented 10/01 to our ED with complaint of worsening lower belly pain a/w "runny" bowel movements since 3-4 days [employer]. She was recently evaluated in the ED and discharged on ATB for UTI. Of note, she has remote h/o C diff more than 10 years ago. She still complains of burnign with passing urine. Other ROS are decreased appetite, smelly bowel movement, low grade fever, weakness. Chronically she wears 2 L O2, and smokes 1/2 ppd x 42 years. Denies alcohol use. Denies any illicit drug use. CTAP in the ED showed colitis, pt reports burning while passing urine. IV cefepime by ER. Put her on rocephin, Her lactic acid was elevated at 2.4 -->normalized. Replaced Mg. WBC elevated at 27 K. c/w cefepime, npo, gi consult, c diff test, po vanc empirically. Monitor lytes and replace as appropriate. Upon Exam : GENERAL: Alert and oriented x3. NAD, on 2L HEENT: No pallor, no icterus. Pupils equal, round and reactive to light. Oral mucosa moist. NECK: No JVD, no neck masses. HEART: S1 and S2 heard. Regular rate and rhythm. No murmur, no gallop. RESPIRATORY SYSTEM: Normal AP diameter. No accessory muscle use. No wheezing, no crackles. ABDOMEN: Soft, bowel sounds present, no distention +, lower belly tender CENTRAL NERVOUS SYSTEM: No facial droop. Speech is clear. Obeys simple commands. Moves extremities. EXTREMITIES: No edema, BLE chronic skin changes appreciated, no erythema seen. I have seen and examined the patient and have discussed the case with the provider above. I agree with the assessment and plan as stated.
[2021-10-01] MEDS ORDERED: cefTRIAXone SODIUM 1,000 MG/50 ML BAG IV STA (18:09)
[2021-10-01] MEDS ORDERED: LEVALBUTEROL HCL 1.25 MG/3 ML NEB INH PRN (20:23)
[2021-10-01] MEDS ORDERED: LEVALBUTEROL TARTRATE 15 GM HFA.AER.AD INH PRN (20:23)
[2021-10-01] MEDS ORDERED: GLUCAGON FOR INJ 1 MG VIAL SQ PRN (20:23)
[2021-10-01] MEDS ORDERED: POLYETHYLENE (MIRALAX) 17 GM PACK PO PRN (20:23)
[2021-10-01] MEDS ORDERED: DEXTROSE 50% 50 ML SYRINGE IV PRN (20:23)
[2021-10-01] MEDS ORDERED: [UNRECOGNIZED DRUG - OTHER] PO PRN (20:23)
[2021-10-01] MEDS ORDERED: ONDANSETRON INJ 2 MG/ML 2 ML VIAL IV PRN (20:23)
[2021-10-01] MEDS ORDERED: NITROGLYCERIN SL 0.4 MG/TAB TAB SL PRN (20:23)
[2021-10-01] MEDS ORDERED: CARBOHYDRATES FOR HYPOGLYCEMIA PO PRN (20:23)
[2021-10-01] MEDS ORDERED: GLUCOSE 40% GEL 15 GM TUBE PO PRN (20:23)
[2021-10-01] MEDS ORDERED: ONDANSETRON 8MG OD TAB PO PRN (20:23)
[2021-10-01] MEDS ORDERED: GLUCOSE 10 TABS/TUBE PO PRN (20:23)
[2021-10-01] MEDS ORDERED: ACETAMINOPHEN 500 MG TAB PO PRN (20:34)
[2021-10-01] MEDS ORDERED: Nursing to Pharmacy Communication SCH (20:45)
[2021-10-01] MEDS ORDERED: DOCUSATE SODIUM 100 MG CAP PO PRN (20:48)
[2021-10-01] MEDS ORDERED: EPINEPHrine INJ 1 MG/ML AMP IM PRN (20:57)
[2021-10-01] MEDS ORDERED: LANTUS PER UNIT CHARGE SQ SCH (21:00)
[2021-10-01] MEDS ORDERED: INSULIN ASPART PER UNIT SC SCH (21:00)
[2021-10-01] MEDS ORDERED: INSULIN GLARGINE SOLOSTAR 100 UNITS/ML 3 ML PEN SC ONE (21:30)
[2021-10-01] MEDS: oxyCODONE HCL IR 5 MG TAB (IMMEDIATE RELEASE) PO PRN (21:50)
[2021-10-01] MEDS: ZOLPIDEM TARTRATE 5 MG TAB PO SCH (22:07)
[2021-10-01] MEDS: AMITRIPTYLINE HCL 25 MG TAB PO SCH (22:09)
[2021-10-01] MEDS: ATORVASTATIN 40 MG TAB PO SCH (22:10)
[2021-10-01] MEDS: APIXABAN 5 MG TABLET PO SCH (22:10)
[2021-10-01] MEDS: FUROSEMIDE 80 MG TAB PO SCH (22:11)
[2021-10-01] MEDS: dilTIAZem HCL 240 MG CAPCR PO SCH (22:11)
[2021-10-01] MEDS: CETIRIZINE HCL 10 MG TABLET PO SCH (22:11)
[2021-10-01] MEDS: guaiFENesin 600 MG TABCR PO SCH (22:12)
[2021-10-01] MEDS: GABAPENTIN 800 MG TAB PO SCH (22:12)
[2021-10-01] MEDS: PANTOprazole 40 MG TAB PO SCH (22:13)
[2021-10-01] MEDS: MELATONIN 3 MG TAB PO SCH (22:13)
[2021-10-01] MEDS: METHOCARBAMOL 750 MG TABLET PO SCH (22:14)
[2021-10-01] MEDS: METOPROLOL SUCC 50MG EXT REL TAB PO SCH (22:14)
[2021-10-01] MEDS: POTASSIUM CHLORIDE 10 MEQ TABCR PO SCH (22:15)
[2021-10-01] MEDS: traZODone HCL 100 MG TAB PO SCH (22:15)
[2021-10-01] MEDS: fentaNYL 50 MCG/HR TDSY TD SCH (22:35)
[2021-10-02] MEDS: CHECK fentaNYL PATCH PLACEMENT SCH ×3 (00:02→15:55)
[2021-10-02] MEDS: INSULIN ASPART PER UNIT SC SCH ×5 (00:05→21:46)
[2021-10-02] MEDS: VANCOMYCIN HCL 125 MG/2.5ML SOLN PO SCH ×4 (05:43→17:41)
[2021-10-02] MEDS: RASPBERRY SYRUP 5 ML UDP PO SCH ×4 (05:43→17:41)
--- NOTE | 2021-10-02 07:04 | XRay Report ---
XR chest 1V portable CLINICAL HISTORY: low o2. COMPARISON STUDY: 07/07/2021 TECHNIQUE: 1 view of the chest FINDINGS: Single frontal view of the chest demonstrates the heart to again be enlarged status post valve replac ement with a permanent cardiac pacer in place. There is a decreased inspiratory effort with elevation of the hemidiaphragms and crowding of the bronchovascular markings at the lung bases and centrally. There is minimal by basilar atelectasis. This also haziness present involving the left lung base when compared to the right characteristic of a left pleural effusion. There is no evidence for vascular c ongestion. There is no acute osseous pathology. IMPRESSION: Decreased inspiration with bibasal atelectasis and suspected left pleural effusion. Follo w-up PA and lateral radiographs would be helpful for further evaluation. ACT 112: Negative or not required by law. Electronically signed by: Gonsalo Rehman M.D. 10/02/2021 7:03 AM
[2021-10-02 07:11] LABS: Hematocrit (blood only) 44.6 % (37-47); Hemoglobin 14.6 g/dL (12.0-16.0); Mean Corpuscular Hemoglobin 30.2 pg (25-34); Mean Corpuscular Hgb Conc 32.7 g/dL (32-36); Mean Corpuscular Volume 92.3 fL (80-100); Mean Platelet Volume 10.3 fL (7.4-10.4); Platelet Count 280 K/uL (130-400); RDW Coefficient of Variation 12.8 % (11.5-14.5); RDW Standard Deviation 43.4 fL (36.4-46.3); Red Blood Count 4.83 M/uL (4.2-5.4); White Blood Count 40.29 K/uL (4.8-10.8)
[2021-10-02 07:39] LABS: Albumin Level 2.8 gm/dl (3.4-5.0); Bilirubin,Total 0.5 mg/dl (0.2-1.0); Calcium 8.3 mg/dl (8.5-10.1); Creatinine Clr Calc Pharmacy 31.6 ml/min; Est GFR (African American) 34.3 ml/min; Est GFR (Non-African American) 29.6 ml/min; Globulin 2.9 gm/dl (2.5-4.0); Phosphorus 3.4 mg/dl (2.5-4.9); Potassium 3.6 mmol/L (3.5-5.1); Total Protein 5.7 gm/dl (6.0-8.3)
[2021-10-02 08:58] LABS: Estimated Average Glucose 183 mg/dl
[2021-10-02] MEDS: guaiFENesin 600 MG TABCR PO SCH ×2 (08:59→19:57)
[2021-10-02] MEDS: dilTIAZem HCL 240 MG CAPCR PO SCH ×2 (08:59→19:59)
[2021-10-02] MEDS: APIXABAN 5 MG TABLET PO SCH ×2 (08:59→20:00)
[2021-10-02] MEDS: POTASSIUM CHLORIDE 10 MEQ TABCR PO SCH ×3 (08:59→20:00)
[2021-10-02] MEDS: FUROSEMIDE 80 MG TAB PO SCH (09:00)
[2021-10-02] MEDS: METHOCARBAMOL 750 MG TABLET PO SCH ×3 (09:00→20:00)
[2021-10-02] MEDS: ASPIRIN 81 MG ECTAB PO SCH (09:00)
[2021-10-02] MEDS: CHOLECALCIFEROL 1,000 UNITS 25 MCG TAB PO SCH (09:00)
[2021-10-02] MEDS: VENLAFAXINE HCL XR 75 MG CAPXR PO SCH (09:00)
[2021-10-02] MEDS: VENLAFAXINE HCL XR 150 MG CAPXR PO SCH (09:01)
[2021-10-02] MEDS: SACCHAROMYCES BOULARDII 250 MG CAP PO SCH (09:01)
[2021-10-02] MEDS: GABAPENTIN 800 MG TAB PO SCH ×2 (09:02→19:58)
[2021-10-02] MEDS: METOPROLOL SUCC 50MG EXT REL TAB PO SCH ×2 (09:02→20:00)
[2021-10-02] MEDS: MULTIVITAMIN TAB PO SCH (09:02)
[2021-10-02] MEDS: PANTOprazole 40 MG TAB PO SCH ×2 (09:02→19:57)
[2021-10-02] MEDS: UMECLIDINIUM BROMIDE 62.5MCG/BLISTER 7 PUFFS/INHALER INH SCH (09:03)
[2021-10-02] MEDS: FLUTICASONE/VILANTEROL 200/25MCG 14 PUFFS/INHALER INH SCH (09:03)
[2021-10-02] MEDS: NICOTINE 21 MG/24 HR TDSY TD SCH (09:04)
[2021-10-02] MEDS: INSULIN GLARGINE SOLOSTAR 100 UNITS/ML 3 ML PEN SC SCH ×2 (09:06→21:47)
[2021-10-02] MEDS: SODIUM CHLORIDE 0.9% 1000ML 1,000 ML IV SCH ×2 (09:10→17:14)
--- NOTE | 2021-10-02 09:38 | Gastrointestinal Consultation ---
Date of Consultation October 02, 2021 Assessment & Plan (1) Abdominal pain: 65 year old female admitted w/ abd pain, diarrhea and foul smelling stools, history of recent PO and IV ABX use for urinary infections, here with rising WBC but normal lactic acid but CT w/ pancolitis. Clinical concern for c.diff Submit stool for c.diff and stool culture If unable to be collected within 24 hours, giving rising WBC, pancolitis and symptoms would empirically start PO Vancomycin four times daily for 14 days Ok for low residue diet as tolerated Analgesia PRN Will sign off. Recall GI as needed. Can have OP colonoscopy arranged per her July recall. Thank you for allowing us to participate in the care of this patient. Please call with any acute changes, questions or concerns. Please see addendum below with additional recommendation from my supervising physician. Supervising Physician Co-Signing Physician Notes I have seen and exmined the patient with KAYCE Larry whose note reflects our findings and plan. PLease check C diff. UTI and abx and now foul smelling stool and rising WBC all concerning for C diff History of Present Illness Reason for Consultation: possible c diff Requesting Physician: Meet Attending Physician: Brooklyn Dsouza MD History of Present Illness 65 year old female with history of afib on Eliquis, CHF, HTN, dyslipidemia, s/p mitral valve repair in 2004, cor pulmonale, , COPD, CKD stage III, hypothyroidism, T2DM, bipolar, depression, anxiety, and history of COVID infection in September 2020 admitted w/ abd pain, diarrhea x 1 week. Pt was seen and evaluated, chart reviewed. Poor historian. Notes that about 1 week ago started having foul smelling stools, loose and frequent BMs. Denies black or bloody stools. A few days after loose stools started, she developed generalized abd pain. Severe, cramping and sharp. Denies nausea, vomiting or upper GI symptoms. No fever, chills, CP, SOB. Rising WBC overnight. Lactic acid 0.6 CTAP 2021: . Interval development of diffuse mucosal thickening of the majority of the colon with exclusion of the rectum. Pericolonic inflammatory changes are present in the findings are characteristic of an infectious versus inflammatory colitis. 2. Normal-appearing small bowel. 3. Gross distention of the urinary bladder. 4. Additional nonacute findings are delineated above. Colonoscopy 2020: Hemorrhoids were found on perianal exam. There was a large amount of stool in the rectum, and the procedure was aborted. Allergies Allergy/AdvReac Type Severity Reaction Status Date / Time bee venom protein (honey bee) Allergy Severe Anaphylaxis Verified 10/01/21 13:56 lisinopril Allergy Severe ANGIOEDEMA, Verified 10/01/21 13:56 FACIAL CELLULITIS, RASH strawberry Allergy Severe LIPS, Verified 10/01/21 13:56 TONGUE, FACE SWELLS alprazolam Allergy Intermediate RED FACE, Verified 10/01/21 13:56 FACE SWELLING alendronate sodium Allergy Unknown ON [facility] MED Verified 10/01/21 13:56 LIST colesevelam AdvReac Intermediate Abdominal Verified 10/01/21 13:56 Pain lactose AdvReac Intermediate VOMTING Verified 10/01/21 13:56 DIARRHEA ABDOMINAL PAIN-LACTOSE INTOLERANCE lithium AdvReac Intermediate jitters Verified 10/01/21 13:56 metronidazole AdvReac Intermediate ABD PAIN, Verified 10/01/21 13:56 WEAKNESS, NAUSEA, VOMITING prednisone AdvReac Mild AGGRESSIVE Verified 10/01/21 13:56 BEHAVIOR Home Medications Medication Instructions Recorded Confirmed Type atorvastatin 40 mg tablet 40 mg PO HS 06/19/18 10/01/21 History cetirizine 10 mg tablet 10 mg PO HS 06/19/18 10/01/21 History cholecalciferol (vitamin D3) 25 1,000 unit PO QAM 06/19/18 10/01/21 History mcg (1,000 unit) tablet (Vitamin D3) docusate sodium 100 mg tablet 100 mg PO BID PRN 06/19/18 10/01/21 History epinephrine 0.3 mg/0.3 mL 0.3 mg IM DIRECTED PRN 06/19/18 10/01/21 History injection, auto-injector (EpiPen) fentanyl 50 mcg/hr transdermal 50 mcg TRANSDERMAL [id number] 06/19/18 10/01/21 History patch methocarbamol 750 mg tablet 750 mg PO TID 06/19/18 10/01/21 History multivitamin 1 tab PO QAM 06/19/18 10/01/21 History ondansetron 8 mg disintegrating 8 mg PO BID PRN 06/19/18 10/01/21 History tablet tiotropium bromide 18 mcg capsule 1 cap INHALATION QAM 06/19/18 10/01/21 History with inhalation device (Spiriva with HandiHaler) venlafaxine 150 mg 150 mg PO QAM 06/19/18 10/01/21 History capsule,extended release 24 hr trazodone 100 mg tablet 200 mg PO HS 09/14/18 10/01/21 History venlafaxine 75 mg capsule,extended 75 mg PO QAM 09/14/18 10/01/21 History release 24 hr zolpidem 5 mg tablet 5 mg PO HS 09/14/18 10/01/21 History gabapentin 800 mg tablet 800 mg PO BID 05/28/19 10/01/21 History insulin glargine 100 unit/mL 18 unit SUBCUT BID 03/02/20 10/01/21 History subcutaneous solution (Lantus U-100 Insulin) potassium chloride 10 mEq 10 meq PO TID 03/02/20 10/01/21 History tablet,extended release levalbuterol HCl 1.25 mg/3 mL 1.25 mg INHALATION Q4H PRN 03/24/20 10/01/21 History solution for nebulization nitroglycerin 0.4 mg sublingual 0.4 mg SUBLINGUAL DIRECTED PRN 07/02/20 10/01/21 History tablet (Nitrostat) fluticasone 250 mcg-salmeterol 50 1 inh INHALATION BID 08/01/20 10/01/21 History mcg/dose blistr powdr for inhalation (Advair Diskus) calcitriol 0.25 mcg capsule 0.25 mcg PO 3XWK 10/21/20 10/01/21 History Al hyd-Mg tr-alg ac-sod bicarb 80 1 tab PO TID PRN 11/08/20 10/01/21 History mg-14.2 mg chewable tablet (Gaviscon) acetaminophen 500 mg tablet 500 mg PO Q6H PRN 11/08/20 10/01/21 History furosemide 40 mg tablet 80 mg PO BID 11/08/20 10/01/21 History melatonin 10 mg tablet 10 mg PO HS 11/08/20 10/01/21 History metoprolol succinate 100 mg 100 mg PO BID 11/08/20 10/01/21 History tablet,extended release 24 hr pantoprazole 40 mg tablet,delayed 40 mg PO BID 11/08/20 10/01/21 History release polyethylene glycol 3350 17 17 g PO DAILY PRN 11/08/20 10/01/21 History gram/dose oral powder digoxin 125 mcg (0.125 mg) tablet 125 mcg PO 3XWK 01/04/21 10/01/21 History diltiazem HCl 240 mg 240 mg PO BID 01/04/21 10/01/21 History capsule,extended release 24 hr levalbuterol tartrate 45 1 puff INHALATION Q4H PRN 01/04/21 10/01/21 History mcg/actuation aerosol inhaler (Xopenex HFA) apixaban 5 mg tablet (Eliquis) 5 mg PO BID 02/05/21 10/01/21 History aspirin 81 mg tablet,delayed 81 mg PO QAM #30 tab 02/20/21 10/01/21 Rx release amitriptyline 25 mg tablet 25 mg PO HS 03/21/21 10/01/21 History guaifenesin 600 mg tablet, 600 mg PO BID 03/21/21 10/01/21 History extended release 12 hr (Mucinex) mometasone 50 mcg/actuation nasal 2 spray INTRANASAL QPM 03/21/21 10/01/21 History spray oxycodone 5 mg tablet 5 mg PO Q6H PRN 08/09/21 10/01/21 History cefdinir 300 mg capsule 300 mg PO BID 7 Days #14 cap 09/27/21 10/01/21 Rx Patient History Medical History Anxiety Asthma 2LPM via n/c mostly continuous (although patient states she does not wear this all the time) Atrial fibrillation A fib/a. flutter s/p cardioversion and ablation (2016); s/p pacer (March 2021)/ follows with Javan Maravilla Atrial flutter Follows Javan Maravilla Lynn esophagus Bipolar disorder Chronic back pain Chronic cor pulmonale Chronic right HR Chronic hyponatremia Chronic obstructive pulmonary disease 2LPM via n/c mostly continuous (although patient states she does not wear this all the time) sees Dr. Vickers Chronic pain Chronic respiratory failure with hypoxia, on home oxygen therapy CKD (chronic kidney disease), stage III CVA (cerebral vascular accident) 2004 (per records; patient denies) Depression Diastolic CHF, chronic DM type 2 (diabetes mellitus, type 2) Fibromyalgia Sinclair catheter in place follows with Tahira Tran Gastroparesis GERD (gastroesophageal reflux disease) History of COVID-19 + 10/11/20; fatigue, congestion; resolved. +02/2021 at [facility]. No current problems. History of DVT (deep vein thrombosis) Left "hand" 2005- on AC HTN (hypertension) Hyperlipidemia Hypothyroidism No current medication per doctor orders. 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 Vickers Severe obstructive sleep apnea CPAP Surgical History History of adenoidectomy History of appendectomy LAPAROSCOPY History of cardiac cath 2004= no stents History of cardioversion History of carpal tunnel release left History of cataract surgery BILATERAL History of cholecystectomy LAPAROSCOPY History of colonoscopy History of esophagogastroduodenoscopy (EGD) History of hysterectomy EMIGDIO WITH BSO History of mitral valve repair 2004 + resection fibroelastoma History of tonsillectomy Hx of lumpectomy right breast BENIGN Hx of tubal ligation Hx of umbilical hernia repair S/P epidural steroid injection S/P placement of cardiac pacemaker 03/2021; rapid HR; sees Javan Maravilla; unsure of brand; last check 06/27/21 S/P trigger finger release RIGHT/LEFT Family History Mother Family history of diabetes mellitus Sister Family history of diabetes mellitus Ulcerative colitis Social History Smoking Status: Current every day smoker Tobacco Type: Cigarettes Cigarettes Per Day: 10 cigs per day; Second Hand Exposure: No; Tobacco Cessation Education Requested by Patient: No Hx Alcohol Use: No Hx Substance Use: No Preferred Language: Barbadian Communication Ability: Effective Visual Impairment: No Limitations Direct Mail Coordinator Required: No Beliefs That Will Affect Care: None marital status: / Current Living Situation: Alone Current Living Situation Comment: caregiver comes daily 8-5 Friday through Friday. weekends 9-1pm Other Information That Helps Us Care for You: No Feels Safe at Home: Yes Safety Concerns: Feels Safe At This Time Assistive Devices: Denture - Upper, Denture - Lower, Oxygen - Continuous and Walker Review of Systems Review of Systems: All systems reviewed & are unremarkable except as noted in HPI & below Physical Exam Constitutional: WD/WN, vitals as above Neck: trachea midline, no thyromegaly Respiratory: normal respiratory effort, lungs clear to auscultation Cardiovascular: Rate/Rhythm: regular rate and regular rhythm Gastrointestinal (Abdomen): Inspection/Auscultation: abdomen normal to inspection and normal bowel sounds; abdomen not distended Percussion/Palpation: + abdomen tender and abdomen soft; no guarding and abdomen not rigid Skin: no rashes, warm and dry Results & Data ([facility]) Vital Signs (Past 12 Hours) Vital Signs Temp Pulse Resp BP Pulse Ox 10/02/21 07:46 37.2 C 59 L 16 115/55 L 10/02/21 05:58 37.2 C 68 20 116/56 L 90 10/01/21 22:35 90 10/01/21 22:30 37.6 C H 71 18 131/73 88 L Laboratory Results 10/02/21 10/02/21 10/02/21 Range/Units 06:42 06:42 06:42 WBC 40.29 H* D (4.8-10.8) K/uL RBC 4.83 (4.2-5.4) M/uL Hgb 14.6 (12.0-16.0) g/dL Hct 44.6 (37-47) % MCV 92.3 (80-100) fL MCH 30.2 (25-34) pg MCHC 32.7 (32-36) g/dL RDW Std Deviation 43.4 (36.4-46.3) fL RDW Coeff of [place] 12.8 (11.5-14.5) % Plt Count 280 (130-400) K/uL MPV 10.3 (7.4-10.4) fL Immature Gran % (Auto) % Neut % (Auto) % Lymph % (Auto) % [place] % (Auto) % Eos % (Auto) % Baso % (Auto) % Neut # (Auto) (1.4-6.5) K/uL Lymph # (Auto) (1.2-3.4) K/uL [place] # (Auto) (0.11-0.59) K/uL Eos # (Auto) (0-0.5) K/uL Baso # (Auto) (0-0.2) K/uL Immature Gran # (Auto) (0.00-0.02) K/uL Sodium 131 L (136-145) mmol/L Potassium 3.6 (3.5-5.1) mmol/L Chloride 98 (98-107) mmol/L Carbon Dioxide 25 (21-32) mmol/L Anion Gap 8 (3-11) BUN 25 H (6-23) mg/dl Creatinine 1.78 H (0.6-1.2) mg/dl Est Cr Clr Drug Dosing 31.6 ml/min Est GFR ( Amer) 34.3 ml/min Est GFR (Non-Af Amer) 29.6 ml/min BUN/Creatinine Ratio 14.0 (10-20) Glucose 197 H (70-99(Fasting)) mg/dl Estimat Average Glucose 183 mg/dl Hemoglobin A1c 8.0 H (4.5-5.6) % Lactate (0.4-2.0) mmol/L Calcium 8.3 L (8.5-10.1) mg/dl Phosphorus 3.4 (2.5-4.9) mg/dl Magnesium (1.7-2.4) mg/dl Total Bilirubin 0.5 (0.2-1.0) mg/dl AST 12 L (13-39) U/L ALT 14 (7-52) U/L Alkaline Phosphatase 104 (34-104) U/L Total Protein 5.7 L (6.0-8.3) gm/dl Albumin 2.8 L (3.4-5.0) gm/dl Globulin 2.9 (2.5-4.0) gm/dl Albumin/Globulin Ratio 1.0 (0.9-2) Lipase (11-82) U/L Procalcitonin (0-0.5) ng/ml TSH (0.300-4.500) uIu/ml Urine Color Urine Appearance (Clear) Urine pH (4.5-7.5) Ur Specific [place] (1.000-1.030) Urine Protein (Negative) Urine Glucose (UA) (Negative) Urine Ketones (Negative) Urine Blood (Negative) Urine Nitrite (Negative) Urine Bilirubin (Negative) Urine Urobilinogen (Negative) Ur Leukocyte Esterase (Negative) Urine WBC (Auto) (0-5) /hpf Urine RBC (Auto) (0-4) /hpf U Hyaline Cast (Auto) (0-5) /lpf U Epithel Cells (Auto) (0-5) /lpf Urine Bacteria (Auto) (Negative) Nasal Screen MRSA (PCR) (Negative) SARS-CoV-2, RNA, NAAT (NEGATIVE) 10/01/21 10/01/21 10/01/21 Range/Units Unknown Unknown Unknown WBC (4.8-10.8) K/uL RBC (4.2-5.4) M/uL Hgb (12.0-16.0) g/dL Hct (37-47) % MCV (80-100) fL MCH (25-34) pg MCHC (32-36) g/dL RDW Std Deviation (36.4-46.3) fL RDW Coeff of [place] (11.5-14.5) % Plt Count (130-400) K/uL MPV (7.4-10.4) fL Immature Gran % (Auto) % Neut % (Auto) % Lymph % (Auto) % [place] % (Auto) % Eos % (Auto) % Baso % (Auto) % Neut # (Auto) (1.4-6.5) K/uL Lymph # (Auto) (1.2-3.4) K/uL [place] # (Auto) (0.11-0.59) K/uL Eos # (Auto) (0-0.5) K/uL Baso # (Auto) (0-0.2) K/uL Immature Gran # (Auto) (0.00-0.02) K/uL Sodium (136-145) mmol/L Potassium (3.5-5.1) mmol/L Chloride (98-107) mmol/L Carbon Dioxide (21-32) mmol/L Anion Gap (3-11) BUN (6-23) mg/dl Creatinine (0.6-1.2) mg/dl Est Cr Clr Drug Dosing ml/min Est GFR ( Amer) ml/min Est GFR (Non-Af Amer) ml/min BUN/Creatinine Ratio (10-20) Glucose (70-99(Fasting)) mg/dl Estimat Average Glucose mg/dl Hemoglobin A1c (4.5-5.6) % Lactate (0.4-2.0) mmol/L Calcium (8.5-10.1) mg/dl Phosphorus (2.5-4.9) mg/dl Magnesium (1.7-2.4) mg/dl Total Bilirubin (0.2-1.0) mg/dl AST (13-39) U/L ALT (7-52) U/L Alkaline Phosphatase (34-104) U/L Total Protein (6.0-8.3) gm/dl Albumin (3.4-5.0) gm/dl Globulin (2.5-4.0) gm/dl Albumin/Globulin Ratio (0.9-2) Lipase (11-82) U/L Procalcitonin (0-0.5) ng/ml TSH (0.300-4.500) uIu/ml Urine Color Dark Yellow Urine Appearance Clear (Clear) Urine pH 5.0 (4.5-7.5) Ur Specific [place] 1.007 (1.000-1.030) Urine Protein Trace H (Negative) Urine Glucose (UA) Negative (Negative) Urine Ketones Negative (Negative) Urine Blood Negative (Negative) Urine Nitrite Positive A (Negative) Urine Bilirubin Negative (Negative) Urine Urobilinogen Negative (Negative) Ur Leukocyte Esterase Trace H (Negative) Urine WBC (Auto) 1-5 (0-5) /hpf Urine RBC (Auto) 0-4 (0-4) /hpf U Hyaline Cast (Auto) 1-5 (0-5) /lpf U Epithel Cells (Auto) >30 H (0-5) /lpf Urine Bacteria (Auto) Negative (Negative) Nasal Screen MRSA (PCR) Negative (Negative) SARS-CoV-2, RNA, NAAT NEGATIVE (NEGATIVE) 10/01/21 10/01/21 10/01/21 Range/Units 15:44 13:44 13:03 WBC (4.8-10.8) K/uL RBC (4.2-5.4) M/uL Hgb (12.0-16.0) g/dL Hct (37-47) % MCV (80-100) fL MCH (25-34) pg MCHC (32-36) g/dL RDW Std Deviation (36.4-46.3) fL RDW Coeff of [place] (11.5-14.5) % Plt Count (130-400) K/uL MPV (7.4-10.4) fL Immature Gran % (Auto) % Neut % (Auto) % Lymph % (Auto) % [place] % (Auto) % Eos % (Auto) % Baso % (Auto) % Neut # (Auto) (1.4-6.5) K/uL Lymph # (Auto) (1.2-3.4) K/uL [place] # (Auto) (0.11-0.59) K/uL Eos # (Auto) (0-0.5) K/uL Baso # (Auto) (0-0.2) K/uL Immature Gran # (Auto) (0.00-0.02) K/uL Sodium (136-145) mmol/L Potassium (3.5-5.1) mmol/L Chloride (98-107) mmol/L Carbon Dioxide (21-32) mmol/L Anion Gap (3-11) BUN (6-23) mg/dl Creatinine (0.6-1.2) mg/dl Est Cr Clr Drug Dosing ml/min Est GFR ( Amer) ml/min Est GFR (Non-Af Amer) ml/min BUN/Creatinine Ratio (10-20) Glucose (70-99(Fasting)) mg/dl Estimat Average Glucose mg/dl Hemoglobin A1c (4.5-5.6) % Lactate 0.6 2.4 H* (0.4-2.0) mmol/L Calcium (8.5-10.1) mg/dl Phosphorus (2.5-4.9) mg/dl Magnesium (1.7-2.4) mg/dl Total Bilirubin (0.2-1.0) mg/dl AST (13-39) U/L ALT (7-52) U/L Alkaline Phosphatase (34-104) U/L Total Protein (6.0-8.3) gm/dl Albumin (3.4-5.0) gm/dl Globulin (2.5-4.0) gm/dl Albumin/Globulin Ratio (0.9-2) Lipase (11-82) U/L Procalcitonin (0-0.5) ng/ml TSH 1.045 (0.300-4.500) uIu/ml Urine Color Urine Appearance (Clear) Urine pH (4.5-7.5) Ur Specific [place] (1.000-1.030) Urine Protein (Negative) Urine Glucose (UA) (Negative) Urine Ketones (Negative) Urine Blood (Negative) Urine Nitrite (Negative) Urine Bilirubin (Negative) Urine Urobilinogen (Negative) Ur Leukocyte Esterase (Negative) Urine WBC (Auto) (0-5) /hpf Urine RBC (Auto) (0-4) /hpf U Hyaline Cast (Auto) (0-5) /lpf U Epithel Cells (Auto) (0-5) /lpf Urine Bacteria (Auto) (Negative) Nasal Screen MRSA (PCR) (Negative) SARS-CoV-2, RNA, NAAT (NEGATIVE) 10/01/21 10/01/21 10/01/21 Range/Units 13:03 13:03 13:03 WBC 27.74 H (4.8-10.8) K/uL RBC 4.62 (4.2-5.4) M/uL Hgb 14.3 (12.0-16.0) g/dL Hct 42.7 (37-47) % MCV 92.4 (80-100) fL MCH 31.0 (25-34) pg MCHC 33.5 (32-36) g/dL RDW Std Deviation 43.2 (36.4-46.3) fL RDW Coeff of [place] 12.8 (11.5-14.5) % Plt Count 259 (130-400) K/uL MPV 10.0 (7.4-10.4) fL Immature Gran % (Auto) 0.6 % Neut % (Auto) 88.5 % Lymph % (Auto) 4.4 % [place] % (Auto) 6.0 % Eos % (Auto) 0.4 % Baso % (Auto) 0.1 % Neut # (Auto) 24.53 H (1.4-6.5) K/uL Lymph # (Auto) 1.22 (1.2-3.4) K/uL [place] # (Auto) 1.67 H (0.11-0.59) K/uL Eos # (Auto) 0.12 (0-0.5) K/uL Baso # (Auto) 0.02 (0-0.2) K/uL Immature Gran # (Auto) 0.18 H (0.00-0.02) K/uL Sodium 130 L (136-145) mmol/L Potassium 3.7 (3.5-5.1) mmol/L Chloride 95 L (98-107) mmol/L Carbon Dioxide 27 (21-32) mmol/L Anion Gap 8 (3-11) BUN 21 (6-23) mg/dl Creatinine 1.61 H (0.6-1.2) mg/dl Est Cr Clr Drug Dosing 35.2 ml/min Est GFR ( Amer) 38.8 ml/min Est GFR (Non-Af Amer) 33.4 ml/min BUN/Creatinine Ratio 13.0 (10-20) Glucose 258 H (70-99(Fasting)) mg/dl Estimat Average Glucose mg/dl Hemoglobin A1c (4.5-5.6) % Lactate (0.4-2.0) mmol/L Calcium 8.7 (8.5-10.1) mg/dl Phosphorus (2.5-4.9) mg/dl Magnesium 1.5 L (1.7-2.4) mg/dl Total Bilirubin 0.4 (0.2-1.0) mg/dl AST 14 (13-39) U/L ALT 18 (7-52) U/L Alkaline Phosphatase 103 (34-104) U/L Total Protein 6.5 (6.0-8.3) gm/dl Albumin 3.3 L (3.4-5.0) gm/dl Globulin 3.2 (2.5-4.0) gm/dl Albumin/Globulin Ratio 1.0 (0.9-2) Lipase 6 L (11-82) U/L Procalcitonin 0.27 (0-0.5) ng/ml TSH (0.300-4.500) uIu/ml Urine Color Urine Appearance (Clear) Urine pH (4.5-7.5) Ur Specific [place] (1.000-1.030) Urine Protein (Negative) Urine Glucose (UA) (Negative) Urine Ketones (Negative) Urine Blood (Negative) Urine Nitrite (Negative) Urine Bilirubin (Negative) Urine Urobilinogen (Negative) Ur Leukocyte Esterase (Negative) Urine WBC (Auto) (0-5) /hpf Urine RBC (Auto) (0-4) /hpf U Hyaline Cast (Auto) (0-5) /lpf U Epithel Cells (Auto) (0-5) /lpf Urine Bacteria (Auto) (Negative) Nasal Screen MRSA (PCR) (Negative) SARS-CoV-2, RNA, NAAT (NEGATIVE) (1) Abdominal pain Abdominal location: lower abdomen, unspecified Qualified Code(s): R10.30 - Lower abdominal pain, unspecified
[2021-10-02] MEDS ORDERED: SACCHAROMYCES BOULARDII 250 MG CAP PO SCH (13:00)
--- NOTE | 2021-10-02 13:26 | Hospitalist Progress Note ---
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 She was recently evaluated in the ED and disc harged on ATB for UTI. Of note, she has remote h/o C diff more than 10 years ago. She still complains of burning with passing urine at presentation. Other ROS are decreased appetite, smelly bowel movement, low grade fever, weakness. She is being managed for the following: Chronically she wears 2 L O2, and smokes 1/2 ppd x 42 years. Denies alcohol use. Denies any illicit drug use. CTAP in the ED showed colitis, pt reports burning while passing urine. IV cefepime by ER. Put her on rocephin, Her lactic acid was elevated at 2.4 -->normalized. Replaced Mg. WBC elevated at 27 K. c/w cefepime, npo, gi consult, c diff test, po vanc empirically. Monitor lytes and replace as appropriate. 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 - admitting CTAP s/o pancolitis - d/w GI 10/02, C. diff if able, if not continue treating c diff empirically for 14 days. Ok for residue diet as john. - Vanc 10/01, C diff sent 10/01 - iv rocephin 10/01 for UTI - WBC uptrending, procal neg, pt afebrile, f/u Bl Cx - c/w iv fluids (will hold lasix for now, re-eval for fluids and lasix initiation), if tolerates eating can dc fluid #. Mild hyponatremia likely d/t decreased appetitie prior to presentation monitor daily. expect to improve with pt able to eat. (3) Atrial fibrillation: Plan: -History of such, rate controlled, continue Eliquis (4) Diastolic CHF, chronic: Plan: -History of such, her chronic dry weight is 163 pounds, she feels that she has lost a slight amount of weight due to appetite depression in the past few days -Given fluids here in the ER, monitor strict I's/O's, no peripheral edema, no JVD suggestive of volume overload, if anything she appears to be slightly dry (5) Hyperlipidemia: Plan: -Continue statin therapy (6) HTN (hypertension): Plan: -Continue metoprolol succinate 100 mg twice daily, digoxin and Friday (7) Chronic respiratory failure with hypoxia, on home oxygen therapy: Plan: -Wears 2L chronically, smokes half pack per day x42 years -Cessation encouraged -Nicotine patch ordered -Does not appear to be in acute respiratory failure presently, Negative COVID on admission (8) Chronic cor pulmonale: Plan: -History of such, stable (9) DM type 2 (diabetes mellitus, type 2): Plan: -ISS with Accu-Cheks ACH S, glucose was 258 on admission, likely elevated secondary to acute infection as she has not eaten today, takes Lantus 16 units twice daily, will reduce in half while n.p.o. (10) Hypothyroidism: Plan: -Continue levothyroxine, TSH is WNL (11) Chronic obstructive pulmonary disease: Plan: - Chronic, continue supplemental O2 2 L Admission and Anticipated Discharge Date Admission Date: October 01, 2021 Subjective Patient was lying in bed, on 4 L nasal cannula oxygen, NAD, drowsy, easily waking up upon conversation, states that she just closes her eyes often and is not drowsy/sleepy. Patient reports ongoing lower belly pain, minimally improved. Patient remains n.p.o., IV fluid running at bedside exam. Discussed with GI. No new acute events overnight. Patient has not moved bowel after hospitalization. Patient reports moving gas. Patient reports cough and not sure about the sputum. Denies any shortness of breath or difficulty breathing. Per RN, patient needed increased oxygen in the morning [her baseline is 2 L] and has been drowsy awaking to verbal stimuli. Patient denies fever/chills/chest pain/palpitations/review of symptoms. Physical Exam Physical Exam: GENERAL: Alert and oriented x3. NAD, on 4L HEENT: No pallor, no icterus. Pupils equal, round and reactive to light. Oral mucosa moist. NECK: No JVD, no neck masses. HEART: S1 and S2 heard. Regular rate and rhythm. No murmur, no gallop. RESPIRATORY SYSTEM: Normal AP diameter. No accessory muscle use. No wheezing, no crackles. ABDOMEN: Soft, bowel sounds present, distention +, lower belly tender CENTRAL NERVOUS SYSTEM: No facial droop. Speech is clear. Obeys simple co mmands. Moves extremities. EXTREMITIES: No edema, BLE chronic skin changes appreciated, no erythema seen. Results & Data Results & Data ([facility]) Vital Signs (Past 12 Hours) Vital Signs Temp Pulse Resp BP Pulse Ox 10/02/21 11:57 90 10/02/21 07:50 93 10/02/21 07:46 37.2 C 59 L 16 115/55 L 10/02/21 05:58 37.2 C 68 20 116/56 L 90 (1) UTI (urinary tract infection) Hematuria presence: without hematuria Urinary tract infection type: acute cystitis Qualified Code(s): N30.00 - Acute cystitis without hematuria (2) Abdominal pain Abdominal location: lower abdomen, unspecified Qualified Code(s): R10.30 - Lower abdominal pain, unspecified
[2021-10-02] MEDS: METHYLNALTREXONE BROMIDE 12 MG/0.6 ML VIAL SQ SCH (14:56)
[2021-10-02] MEDS ORDERED: Nursing to Pharmacy Communication SCH (16:00)
[2021-10-02] MEDS: cefTRIAXone SODIUM 1,000 MG in DEXTROSE 5% 50 ML IV SCH (17:47)
[2021-10-02] MEDS ORDERED: cefTRIAXone SODIUM 1,000 MG in DEXTROSE 5% 50 ML IV SCH (18:00)
[2021-10-02] MEDS: AMITRIPTYLINE HCL 25 MG TAB PO SCH (19:57)
[2021-10-02] MEDS: CETIRIZINE HCL 10 MG TABLET PO SCH (19:58)
[2021-10-02] MEDS: ATORVASTATIN 40 MG TAB PO SCH (19:58)
[2021-10-02] MEDS: FLUTICASONE PROPIONATE NA SPR 16 GM BTL SCH (20:01)
[2021-10-02] MEDS: traZODone HCL 100 MG TAB PO SCH (20:56)
[2021-10-02] MEDS: MELATONIN 3 MG TAB PO SCH (20:56)
[2021-10-02] MEDS: ZOLPIDEM TARTRATE 5 MG TAB PO SCH (20:57)
[2021-10-03] MEDS: RASPBERRY SYRUP 5 ML UDP PO SCH ×4 (02:08→17:30)
[2021-10-03] MEDS: CHECK fentaNYL PATCH PLACEMENT SCH ×3 (02:08→16:55)
[2021-10-03] MEDS: VANCOMYCIN HCL 125 MG/2.5ML SOLN PO SCH ×4 (02:08→17:30)
[2021-10-03] MEDS: oxyCODONE HCL IR 5 MG TAB (IMMEDIATE RELEASE) PO PRN (05:52)
[2021-10-03 08:15] LABS: Hematocrit (blood only) 48.8 % (37-47); Hemoglobin 16.8 g/dL (12.0-16.0); Mean Corpuscular Hemoglobin 31.1 pg (25-34); Mean Corpuscular Hgb Conc 34.4 g/dL (32-36); Mean Corpuscular Volume 90.2 fL (80-100); Mean Platelet Volume 10.3 fL (7.4-10.4); Platelet Count 327 K/uL (130-400); RDW Coefficient of Variation 13.2 % (11.5-14.5); RDW Standard Deviation 43.5 fL (36.4-46.3); Red Blood Count 5.41 M/uL (4.2-5.4); White Blood Count 42.28 K/uL (4.8-10.8)
[2021-10-03] MEDS: UMECLIDINIUM BROMIDE 62.5MCG/BLISTER 7 PUFFS/INHALER INH SCH (08:31)
[2021-10-03] MEDS: METHYLNALTREXONE BROMIDE 12 MG/0.6 ML VIAL SQ SCH (08:32)
[2021-10-03] MEDS: FLUTICASONE/VILANTEROL 200/25MCG 14 PUFFS/INHALER INH SCH (08:32)
[2021-10-03] MEDS: POTASSIUM CHLORIDE 10 MEQ TABCR PO SCH ×3 (08:33→20:41)
[2021-10-03] MEDS: VENLAFAXINE HCL XR 75 MG CAPXR PO SCH (08:33)
[2021-10-03] MEDS: METOPROLOL SUCC 50MG EXT REL TAB PO SCH ×2 (08:33→20:44)
[2021-10-03] MEDS: VENLAFAXINE HCL XR 150 MG CAPXR PO SCH (08:34)
[2021-10-03] MEDS: GABAPENTIN 800 MG TAB PO SCH ×2 (08:34→20:44)
[2021-10-03] MEDS: APIXABAN 5 MG TABLET PO SCH ×2 (08:34→20:43)
[2021-10-03] MEDS: METHOCARBAMOL 750 MG TABLET PO SCH ×3 (08:34→20:42)
[2021-10-03] MEDS: dilTIAZem HCL 240 MG CAPCR PO SCH ×2 (08:34→20:43)
[2021-10-03] MEDS: guaiFENesin 600 MG TABCR PO SCH ×2 (08:35→20:43)
[2021-10-03] MEDS: PANTOprazole 40 MG TAB PO SCH ×2 (08:35→20:44)
[2021-10-03] MEDS: NICOTINE 21 MG/24 HR TDSY TD SCH (08:35)
[2021-10-03] MEDS: ASPIRIN 81 MG ECTAB PO SCH (08:35)
[2021-10-03] MEDS: SACCHAROMYCES BOULARDII 250 MG CAP PO SCH (08:35)
[2021-10-03] MEDS: CHOLECALCIFEROL 1,000 UNITS 25 MCG TAB PO SCH (08:36)
[2021-10-03] MEDS: MULTIVITAMIN TAB PO SCH (08:36)
[2021-10-03] MEDS: INSULIN GLARGINE SOLOSTAR 100 UNITS/ML 3 ML PEN SC SCH ×2 (08:38→20:58)
[2021-10-03] MEDS: INSULIN ASPART PER UNIT SC SCH ×4 (08:43→20:53)
[2021-10-03 08:44] LABS: Albumin Level 2.7 gm/dl (3.4-5.0); Bilirubin,Total 0.3 mg/dl (0.2-1.0); Creatinine Clr Calc Pharmacy 24.2 ml/min; Est GFR (African American) 24.8 ml/min; Est GFR (Non-African American) 21.4 ml/min; Globulin 2.8 gm/dl (2.5-4.0); Magnesium 2.1 mg/dl (1.7-2.4); Potassium 4.3 mmol/L (3.5-5.1); Total Protein 5.5 gm/dl (6.0-8.3)
[2021-10-03] MEDS ORDERED: CALCITRIOL 0.25 MCG CAPSULE PO SCH (09:00)
--- NOTE | 2021-10-03 11:57 | Hospitalist Progress Note ---
Date of Service October 03, 2021 Assessment & Plan (1) Colitis: (2) UTI (urinary tract infection): (3) Abdominal pain: Plan: 65-year-old female with PMHx of A. 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 She was recently evaluated in the ED and dis charged on ATB for UTI. Of note, she has remote h/o C diff more than 10 years ago. She still complains of burning with passing urine at presentation. Other ROS are decreased appetite, smelly bowel movement, low grade fever, weakness. She is being managed for the following: CTAP in ED 1. Interval development of diffuse mucosal thickening of the majority of the colon with exclusion of the rectum. Pericolonic inflammatory changes are present in the findings are characteristic of an infectious versus inflammatory colitis. 2. Normal-appearing small bowel. She did not meet SIRS/SEPSIS critera on admission Fulminant C. 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 Again seen are findings of a nonspecific pancolitis. This has worsened as compared to 10/01/2021. 2. There is gaseous distention of the colon, possibly representing colonic ileus. The small bowel is normal in caliber. 3. There is a small volume of abdominopelvic ascites. This is new from 10/01/2021. 4. Cardiomegaly and emphysema with trace left pleural effusion. 5. The bladder wall appears circumferentially thickened. Correlate with clinical findings and urinalysis. 6. Retained cortical contrast within both kidneys is nonspecific and can be seen with acute renal injury. Clinical correlation will be required. 7. Cirrhotic liver morphology. 8. Additional findings as above. BC: NGTD Discussed case with KALEB Perez - they will see follow patient Consult general surgery given ileus Mild hyponatremia possible due to poor intake, or recent diuretic use in setting of worsened renal function obtain urine na, urine osm and serum osm furosemide is now on hold follow Acute on Chronic CKD 3 baseline cr ~ 1.4-1.6 bun/cr 42 and 2.33 pt with urinary retention place culp, strict intake and output Atrial fibrillation: continue eliquis rate/rhythm controlled continue diltiazem, metoprolol, dig Diastolic CHF, chronic: her chronic dry weight is 163 pounds, she feels that she has lost a slight amount of weight due to appetite depression in the past few days strict intake/output, daily weights ordered for culp cath no signs of volume overload Lasix on hold in setting of worsening renal fxn continue metoprolol, dig Hyperlipidemia: statin therapy HTN (hypertension): Continue metoprolol succinate 100 mg twice daily, diltiazem lasix on hold Chronic respiratory failure with hypoxia, on home oxygen therapy: Wears 2L chronically, smokes half pack per day x42 years Cessation encouraged Nicotine patch ordered Does not appear to be in acute respiratory failure presently, Negative COVID on admission increased O2 requirements - repeat CXR Chronic cor pulmonale: stable DM type 2 (diabetes mellitus, type 2): continue Lantus, novolog per protocol consult glycemic pharmacy in setting of acute illness Hypothyroidism: Continue levothyroxine, TSH is WNL Chronic obstructive pulmonary disease: Chronic, continue supplemental O2 2 L DVt ppx: Eliquis PCP: Briseida Dispo: remains hospitalized, not medically stable DNR/DNI Pt was seen and examined in collaboration with DR. Glynn, please see addendum The chart was completed utilizing [employer] voice recognition software. Grammatical errors, random word insertions, pronoun errors, and incomplete sentences are an occasional consequence of this system due to software limitations, ambient noise, and hardware issues. Any formal questions or concerns about the content, text, or information contained within the body of this dictation should be directly addressed to the provider for clarification. Admission and Anticipated Discharge Date Admission Date: October 01, 2021 Supervising Physician Co-Signing Physician Notes Patient seen and examined Reported some nausea and abdominal pain earlier. Had the liquid bowel movement this morning. Physical exam notable for abdominal distention, soft Labs notable for significant leukocytosis of 42,000, worsening ЮЛИЯ on CKD with creatinine of 2.33 from 1.78 yesterday. Positive C. difficile toxin and gene test test show from today. CT scan was repeated due to abdominal distention and it showed pancolitis that has worsened compared to that of 10/01/2021, with gaseous distention in cecum and transverse colon that measure up to 7 cm. Patient has severe C. difficile colitis Currently on p.o. vancomycin. We will add IV Flagyl Consults surgery Move patient to PCU for closer monitoring Continue antibiotic for UTI Agree with other plans as detailed by Joy Burton PA-C Subjective Patient was seen and examined in room 352-1. Follow up colitis. Pt states, "I feel better than this morning." States she had nausea and abd pain this morning, improved with IV medication. Per nurse Large liquid Bm this morning. No blood/black stool. Denies f/c/s, cp, sob, n/v. She is tolerating diet. Per nurse pt required straight cath x 3. Review of Systems Review of Systems: All systems reviewed & are unremarkable except as noted in HPI & below Physical Exam Physical Exam: Gen: WD/WN, NAD, A&O x3 HEENT: Normocephalic, atraumatic, conjunctivae moist, sclerae anicteric, mucous membranes moist. Lung: Clear to Auscultation bilaterally, no wheezes/rales/rhonchi Heart: Regular rate, regular rhythm, no murmurs, rubs, or gallops Abdomen: Soft, NT, Distended +BS x 4 Extremities: No edema Skin: Warm, no rash, negative turgor. Results & Data Results & Data ([facility]) Vital Signs (Past 12 Hours) Vital Signs Temp Pulse Resp BP Pulse Ox 10/03/21 07:12 36.8 C 90 18 143/77 H 95 Laboratory Results Short CBC 10/01/21 10/02/21 10/03/21 Range/Units 13:03 06:42 07:56 WBC 42.28 H* (4.8-10.8) K/uL Hgb 16.8 H (12.0-16.0) g/dL Hct 48.8 H (37-47) % Plt Count 327 (130-400) K/uL Creatinine 1.61 H 1.78 H (0.6-1.2) mg/dl 10/03/21 Range/Units 07:56 WBC (4.8-10.8) K/uL Hgb (12.0-16.0) g/dL Hct (37-47) % Plt Count (130-400) K/uL Creatinine 2.33 H D (0.6-1.2) mg/dl BMP 10/03/21 07:56 Sodium 129 L Potassium 4.3 Chloride 100 Carbon Dioxide 21 BUN 42 H Creatinine 2.33 H D Glucose 205 H Calcium 8.0 L Liver Function 10/03/21 Range/Units 07:56 Total Bilirubin 0.3 (0.2-1.0) mg/dl AST 18 (13-39) U/L ALT 14 (7-52) U/L Alkaline Phosphatase 128 H (34-104) U/L Albumin 2.7 L (3.4-5.0) gm/dl Medications Administered Current Inpatient Medications Acetaminophen (Acetaminophen 500 Mg Tab) 500 mg PO Q6H PRN PRN Reason: Pain, Mild/Moderate Stop: 10/31/21 20:33 Amitriptyline HCl (Amitriptyline Hcl 25 Mg Tab) [address] [facility] Stop: 10/31/21 20:59 Last Admin: 10/02/21 19:57 Dose: 25 mg Documented by: Apixaban (Apixaban 5 Mg Tablet) 5 mg PO BID [facility] Stop: 10/31/21 20:59 Last Admin: 10/03/21 08:34 Dose: 5 mg Documented by: Aspirin (Aspirin 81 Mg Ectab) [facility] [place] Stop: 11/01/21 08:59 Last Admin: 10/03/21 08:35 Dose: 81 mg Documented by: Atorvastatin Calcium (Atorvastatin 40 Mg Tab) 40 mg PO HS [facility] Stop: 10/31/21 20:59 Last Admin: 10/02/21 19:58 Dose: 40 mg Documented by: Calcitriol (Calcitriol 0.25 Mcg Capsule) 0.25 mcg PO MoWeFr@0900 [facility] Stop: 11/02/21 08:59 Last Admin: 10/03/21 08:36 Dose: 0.25 mcg Documented by: Cetirizine HCl (Cetirizine Hcl 10 Mg Tablet) 10 mg PO HS [facility] Stop: 10/31/21 20:59 Last Admin: 10/02/21 19:58 Dose: 10 mg Documented by: Dextrose (Dextrose 50% 50 Ml Syringe) 25 - 50 ml IV UD PRN; Protocol PRN Reason: Hypoglycemia Protocol Stop: 10/31/21 20:22 Digoxin (Digoxin 0.125 Mg Tab) 0.125 mg PO MoWeFrSa@1600 [facility] Stop: 11/02/21 15:59 Diltiazem HCl (Diltiazem Hcl 240 Mg Capcr) 240 mg PO BID [facility] Stop: 10/31/21 20:59 Last Admin: 10/03/21 08:34 Dose: 240 mg Documented by: Docusate Sodium (Docusate Sodium 100 Mg Cap) 100 mg PO BID PRN PRN Reason: Constipation Stop: 10/31/21 20:47 Epinephrine HCl (Epinephrine Inj 1 Mg/Ml Amp) 0.3 mg IM UD PRN PRN Reason: Allergic Reaction Stop: 10/31/21 20:56 Fentanyl (Fentanyl 50 Mcg/Hr Tdsy) 50 mcg TD Q3D@2130 [facility] Stop: 10/15/21 21:29 Last Admin: 10/01/21 22:35 Dose: 50 mcg Documented by: Fluticasone Propionate (Fluticasone Propionate Na Spr 16 Gm Btl) 2 sprays NA QPM [facility]; Protocol Stop: 11/01/21 20:59 Last Admin: 10/02/21 20:01 Dose: 2 sprays Documented by: Fluticasone/Vilanterol (Fluticasone/Vilanterol 200/25mcg 14 Puffs/Inhaler) 1 puffs INH DAILY [facility]; Protocol Stop: 11/01/21 08:59 Last Admin: 10/03/21 08:32 Dose: 1 puffs Documented by: Furosemide (Furosemide 80 Mg Tab) 80 mg PO BID [facility] Stop: 10/31/21 20:59 Last Admin: 10/02/21 09:00 Dose: 80 mg Documented by: Gabapentin (Gabapentin 800 Mg Tab) 800 mg PO BID [facility] Stop: 10/31/21 20:59 Last Admin: 10/03/21 08:34 Dose: 800 mg Documented by: Glucagon (Glucagon For Inj 1 Mg Vial) 1 mg SQ UD PRN; Protocol PRN Reason: Hypoglycemia Protocol Stop: 10/31/21 20:22 Glucose (Glucose 10 Tabs/Tube) 4 - 8 tabs PO UD PRN; Protocol PRN Reason: Hypoglycemia Protocol Stop: 10/31/21 20:22 Glucose (Glucose 40% Gel 15 Gm Tube) 15 - 30 gm PO UD PRN; Protocol PRN Reason: Hypoglycemia Protocol Stop: 10/31/21 20:22 Guaifenesin (Guaifenesin 600 Mg Tabcr) 600 mg PO BID [facility] Stop: 10/31/21 20:59 Last Admin: 10/03/21 08:35 Dose: 600 mg Documented by: Ceftriaxone Sodium 1,000 mg/ (Dextrose) 50 mls @ 100 mls/hr IV DAILY@1800 JOR[facility]; Protocol Stop: 10/11/21 17:59 Last Infusion: 10/02/21 18:37 Dose: Infused Documented by: Insulin Aspart (Insulin Aspart Per Unit) 0 units SC ACHS [facility] Stop: 11/01/21 00:00 Last Admin: 10/03/21 08:43 Dose: 1 units Documented by: Insulin Glargine (Insulin Glargine Solostar 100 Units/Ml 3 Ml Pen) 5 units SC BID [facility] Stop: 11/01/21 08:59 Last Admin: 10/03/21 08:38 Dose: 5 units Documented by: Levalbuterol HCl (Levalbuterol Hcl 1.25 Mg/3 Ml Neb) 1.25 mg INH Q4R PRN; Protocol PRN Reason: Wheezing Stop: 10/31/21 20:22 Levalbuterol HCl (Levalbuterol Tartrate 15 Gm Hfa.Aer.Ad) 1 puffs INH Q4R PRN PRN Reason: WHEEZING, IF NEB NOT AVAILABLE. Stop: 10/31/21 20:22 Melatonin (Melatonin 3 Mg Tab) 10 mg PO HS [facility] Stop: 10/31/21 20:59 Last Admin: 10/02/21 20:56 Dose: Not Given Documented by: Methocarbamol (Methocarbamol 750 Mg Tablet) 750 mg PO TID [facility] Stop: 10/31/21 20:59 Last Admin: 10/03/21 08:34 Dose: 750 mg Documented by: Metoprolol Succinate (Metoprolol Succ 50mg Ext Rel Tab) 100 mg PO BID [facility] Stop: 10/31/21 20:59 Last Admin: 10/03/21 08:33 Dose: 100 mg Documented by: Awais (Fentanyl Patch Remove & Waste) 1 ea N/A Q3D [facility] Stop: 10/31/21 21:28 Last Admin: 10/01/21 22:24 Dose: 1 ea Documented by: Awais (Check Fentanyl Patch Placement) 1 ea N/A QS [facility] Stop: 11/01/21 00:00 Last Admin: 10/03/21 08:37 Dose: 1 ea Documented by: Awais (Remove Nicoderm Patch) 1 ea N/A DAILY@0859 [facility] Stop: 11/01/21 08:58 Last Admin: 10/03/21 08:34 Dose: 1 ea Documented by: Awais (Carbohydrates For Hypoglycemia ) 15 - 30 gm PO UD PRN PRN Reason: Hypoglycemia Protocol Stop: 10/31/21 20:22 Multivitamins (Multivitamin Tab) 1 tab PO QAM [facility] Stop: 11/01/21 08:59 Last Admin: 10/03/21 08:36 Dose: 1 tab Documented by: Nicotine (Nicotine 21 Mg/24 Hr Tdsy) 21 mg TD QAM [facility] Stop: 11/01/21 08:59 Last Admin: 10/03/21 08:35 Dose: 21 mg Documented by: Nitroglycerin (Nitroglycerin Sl 0.4 Mg/Tab Tab) 0.4 mg SL UD PRN PRN Reason: Chest Pain Stop: 10/31/21 20:22 Ondansetron HCl (Ondansetron 8mg Od Tab) 8 mg PO BID PRN PRN Reason: Nausea Stop: 10/31/21 20:22 Last Admin: 10/03/21 08:32 Dose: 8 mg Documented by: Ondansetron HCl (Ondansetron Inj 2 Mg/Ml 2 Ml Vial) 4 mg IV Q4H PRN PRN Reason: Nausea And Vomiting Stop: 10/31/21 20:22 Oxycodone HCl (Oxycodone Hcl Ir 5 Mg Tab (Immediate Release)) 5 mg PO Q6H PRN PRN Reason: Pain Stop: 10/15/21 20:22 Last Admin: 10/03/21 05:52 Dose: 5 mg Documented by: Pantoprazole Sodium (Pantoprazole 40 Mg Tab) 40 mg PO BID [facility] Stop: 10/31/21 20:59 Last Admin: 10/03/21 08:35 Dose: 40 mg Documented by: Polyethylene Glycol (Polyethylene (Miralax) 17 Gm Pack) 17 gm PO DAILY PRN PRN Reason: Constipation Stop: 10/31/21 20:22 Potassium Chloride (Potassium Chloride 10 Meq Tabcr) 10 meq PO TID [facility] Stop: 10/31/21 20:59 Last Admin: 10/03/21 08:33 Dose: 10 meq Documented by: Raspberry (Raspberry Syrup 5 Ml Udp) 5 ml PO Q6 [facility] Stop: 10/12/21 00:00 Last Admin: 10/03/21 05:53 Dose: 5 ml Documented by: Saccharomyces Boulardii (Saccharomyces Boulardii 250 Mg Cap) 250 mg PO DAILY [facility] Stop: 11/01/21 08:59 Last Admin: 10/03/21 08:35 Dose: 250 mg Documented by: Trazodone HCl (Trazodone Hcl 100 Mg Tab) 200 mg PO HS [facility] Stop: 10/31/21 20:59 Last Admin: 10/02/21 20:56 Dose: Not Given Documented by: Umeclidinium Ponderosa (Umeclidinium Ponderosa 62.5mcg/Blister 7 Puffs/Inhaler) 1 puffs INH QAM [facility]; Protocol Stop: 11/01/21 08:59 Last Admin: 10/03/21 08:31 Dose: 1 puffs Documented by: Vancomycin HCl (Vancomycin Hcl 125 Mg/2.5ml Soln) 125 mg PO Q6 [facility] Stop: 10/12/21 00:00 Last Admin: 10/03/21 05:53 Dose: 125 mg Documented by: Venlafaxine HCl (Venlafaxine Hcl Xr 75 Mg Capxr) 75 mg PO QAM [facility] Stop: 11/01/21 08:59 Last Admin: 10/03/21 08:33 Dose: 75 mg Documented by: Venlafaxine HCl (Venlafaxine Hcl Xr 150 Mg Capxr) 150 mg PO QAM [facility] Stop: 11/01/21 08:59 Last Admin: 10/03/21 08:34 Dose: 150 mg Documented by: Vitamin D (Cholecalciferol 1,000 Units 25 Mcg Tab) 1,000 units PO QAM [facility] Stop: 11/01/21 08:59 Last Admin: 10/03/21 08:36 Dose: 1,000 units Documented by: Zolpidem Tartrate (Zolpidem Tartrate 5 Mg Tab) 5 mg PO HS [facility] Stop: 10/31/21 20:59 Last Admin: 10/02/21 20:57 Dose: Not Given Documented by: (1) UTI (urinary tract infection) Hematuria presence: without hematuria Urinary tract infection type: acute cystitis Qualified Code(s): N30.00 - Acute cystitis without hematuria (2) Abdominal pain Abdominal location: lower abdomen, unspecified Qualified Code(s): R10.30 - Lower abdominal pain, unspecified
[2021-10-03] MEDS ORDERED: PHARMACY GLYCEMIC MGMT CONSULT PRN (12:22)
[2021-10-03 12:37] LABS: Adenovirus F 40/41 PCR Not Detected (NotDetected); Astrovirus PCR Not Detected (NotDetected); Campylobacter PCR Not Detected (NotDetected); Cryptosporidium PCR Not Detected (NotDetected); Cyclospora cayetanensis PCR Not Detected (NotDetected); Entamoeba histolytica PCR Not Detected (NotDetected); Enteroaggregative E.coli(EAEC) Not Detected (NotDetected); Enteropathogenic E.coli (EPEC) Not Detected (NotDetected); Enterotoxigenic E.coli (ETEC) Not Detected (NotDetected); Giardia lamblia PCR Not Detected (NotDetected); Norovirus GI/GII PCR Not Detected (NotDetected); Plesiomonas shigelloides PCR Not Detected (NotDetected); Rotavirus A PCR Not Detected (NotDetected); Salmonella PCR Not Detected (NotDetected); Sapovirus PCR Not Detected (NotDetected); Shiga-like Toxin E.coli (STEC) Not Detected (NotDetected); Shigella/Enteroinvasive E.coli Not Detected (NotDetected); Vibrio cholerae PCR Not Detected (NotDetected); Vibrio species PCR Not Detected (NotDetected); Yersinia enterocolitica PCR Not Detected (NotDetected)
--- NOTE | 2021-10-03 13:06 | Pharmacy Report ---
Pharmacy Glycemic Short Note 2 - Date of Service October 03, 2021 - Glycemic Short BSG Results (Last 24 hours): 10/01/21 10/01/21 10/02/21 19:57 23:57 06:00 Glucose POC Glucose 237 H 193 H 203 H 10/02/21 10/02/21 10/02/21 11:53 17:18 21:27 Glucose POC Glucose 179 H 224 H 221 H 10/03/21 10/03/21 10/03/21 07:54 07:56 12:04 Glucose 205 H POC Glucose 196 H 194 H OUTPATIENT ANTIDIABETIC REGIMEN: * Lantus 18 units SQ BID ASSESSMENT: * 65 y/o F admitted for Colitis. She has a history of diabetes managed at home only on basal insulin BID. * She was started on Lantus 5 units SQ BID since 10/01 HS which was continued through yesterday. * Her renal function seems to have worsened today. Serum creat is 2.33 mg/dl. * Fasting BSG today was 196 mg/dl. Continued the same dose of Lantus BID since renal function looks worse today. * Pre-lunch BSG = 194 mg/dl. * Novolog CF/CR continued the same but tightened goal range to 110-140. She should receive more insulin correctional with this range. * Hesitate to tighten parameters at this time since she is not eating very much. PLAN FOR INPATIENT GLYCEMIC CONTROL: * Basal insulin * Lantus 5 units SQ BID * Bolus insulin: tightened goal range * NovoLog per scale ACHS or Q6hrs while NPO * Goal Range: Low 110 mg/dL - High 140 mg/dL * Correction Factor: 30 mg/dL/unit * Nutritional / Prandial insulin per carb ratio of 1 unit per 10 grams CHO consumed PLAN FOR DISCHARGE: * TBD
--- NOTE | 2021-10-03 13:08 | XRay Report ---
XR chest 1V portable CLINICAL HISTORY: increased o2 requirements. Follow-up atelectasis and suspected pleural effusion COMPARISON STUDY: 10/01/2021 TECHNIQUE: 1 view of the chest FINDINGS: Single frontal view of the chest demonstrates heart size to again be enlarged with permanent cardiac pacer in place. Mild residual atelectasis is present at the lung bases. The lungs are clear of alveol ar opacities. The patient appears in a more upright position with no definite evidence for pleural ef fusions on the current study. There is no evidence for vascular congestion. There is no acute osseous pathology. IMPRESSION: Interval decrease in bibasilar atelectasis. No definite effusions are seen on the current study. Due to the patient's history, follow-up PA and lateral radiographs would be helpful for furth er evaluation. ACT 112: Negative or not required by law. Electronically signed by: Gonsalo Rehman M.D. 10/03/2021 1:06 PM
--- NOTE | 2021-10-03 13:13 | CT Scan Report ---
CT SCAN OF THE ABDOMEN AND PELVIS WITHOUT IV CONTRAST CLINICAL HISTORY: Abdominal distention. COMPARISON STUDY: Abdominal CT dated 10/01/2021. Chest CT dated 01/12/2021. TECHNIQUE: CT scan of the abdomen and pelvis is performed from the lung bases to the proximal femora. Images are reviewed in the axial, sagittal, and coronal planes. IV contrast was not administered for this examination. Note that the examination was performed in suboptimal fashion without oral and IV contrast. A dose lowering technique was utilized adhering to the principles of ALARA. CT DOSE: 748.55 mGy.cm FINDINGS: Lung bases: The heart is enlarged and without pericardial effusion. Pacemaker leads are in place. Emp hysematous change is noted. There is bibasilar scarring/atelectasis. Trace pleural fluid is seen on t he left. There is no airspace consolidation typical for pneumonia. Mucous plugging/intraluminal debri s is seen in the left lower lobe airways. Liver: The unenhanced liver is cirrhotic in morphology and heterogeneous in attenuation. There is hyp ertrophy of the left lobe and nodularity of the surface contour. There is no intrahepatic biliary anatoly becky dilatation. Gallbladder: Surgically absent noting clips in the gallbladder fossa. Spleen: Normal in size and attenuation. There is a calcified splenic granuloma. Pancreas: Atrophic and grossly unremarkable. Adrenal glands: A 3.4 cm left adrenal nodule meets CT criteria for a fat-containing adenoma. A 1.5 cm adenoma is noted in the right adrenal gland. Kidneys: The unenhanced kidneys demonstrate cortical atrophy and are without hydronephrosis. Retained cortical contrast suggests renal injury. Contrast within the renal collecting system degrades evalua tion for renal calculi.. Renal cysts measure up to 2.1 cm. Additional scattered subcentimeter cortica l hypodensities also likely represent cysts but are too small for definitive characterization. Abdominal vasculature: The abdominal aorta is normal in course and caliber noting advanced atheroscle rotic calcification. Bowel: There is diffuse colonic wall thickening and edema with surrounding inflammation and fluid. Th is extends from the cecum to the sigmoid, and is consistent with a nonspecific pancolitis. There is m ild gaseous distention of the cecum and transverse colon which measure up to 7 cm in diameter. No sma ll bowel obstruction is identified. There is no pneumatosis intestinalis. The appendix is not identi fied and reported surgically absent Peritoneum: There is trace perihepatic and perisplenic ascites, as well as a small volume of ascites in the pelvis. No intraperitoneal free air is seen. Lymphadenopathy: None. Pelvic viscera: The bladder is filled with excreted IV contrast. The bladder wall appears circumferen tially thickened and trabeculated. The uterus is diminutive versus surgically absent. No adnexal lesi on is seen. Skeletal structures: The skeletal structures are osteopenic. Mild lumbosacral spondylosis is observed . No lytic or blastic lesions are seen. IMPRESSION: 1. Again seen are findings of a nonspecific pancolitis. This has worsened as compared to 10/01/2021. 2. There is gaseous distention of the colon, possibly representing colonic ileus. The small bowel is normal in caliber. 3. There is a small volume of abdominopelvic ascites. This is new from 10/01/2021. 4. Cardiomegaly and emphysema with trace left pleural effusion. 5. The bladder wall appears circumferentially thickened. Correlate with clinical findings and urinaly sis. 6. Retained cortical contrast within both kidneys is nonspecific and can be seen with acute renal inj ury. Clinical correlation will be required. 7. Cirrhotic liver morphology. 8. Additional findings as above. ACT 112: Negative or not required by law. Electronically signed by: Jame Batres M.D. 10/03/2021 1:11 PM
[2021-10-03 13:45] LABS: Cdiff Antigen Positive; Cdiff Toxin A+B Positive Cdiff Toxin (Negative)
--- NOTE | 2021-10-03 14:28 | Surgery Consultation ---
Date of Consultation October 03, 2021 Assessment & Plan (1) C. difficile colitis: No acute surgical findings at this time. Would continue to maximize medical management, (consider Flagyl) and further eval by GI and possibly ID. Supervising Physician Co-Signing Physician Notes I personally saw and examined the patient with Xavier Keith PA-C and agree with the assessment and plan. 65-year-old female with C. difficile colitis and increasing WBC Will consult ID and consider starting IV Flagyl in addition to the p.o. Vanco We will continue to monitor the patient If she starts to deteriorate clinically would recommend exploration total abdominal colectomy with ileostomy History of Present Illness Attending Physician: Asha Glynn MD History of Present Illness 65 y/o female with h/o C. diff admitted two days ago for abdominal pain and diarrhea having recently started abx for UTI 6 days ago. Pain is better today. One loose BM today, had two yesterday. Has not had an appetite, has had some liquids over the past few days. No fevers or chills. Allergies Allergy/AdvReac Type Severity Reaction Status Date / Time bee venom protein (honey bee) Allergy Severe Anaphylaxis Verified 10/01/21 13:56 lisinopril Allergy Severe ANGIOEDEMA, Verified 10/01/21 13:56 FACIAL CELLULITIS, RASH strawberry Allergy Severe LIPS, Verified 10/01/21 13:56 TONGUE, FACE SWELLS alprazolam Allergy Intermediate RED FACE, Verified 10/01/21 13:56 FACE SWELLING alendronate sodium Allergy Unknown ON [facility] MED Verified 10/01/21 13:56 LIST colesevelam AdvReac Intermediate Abdominal Verified 10/01/21 13:56 Pain lactose AdvReac Intermediate VOMTING Verified 10/01/21 13:56 DIARRHEA ABDOMINAL PAIN-LACTOSE INTOLERANCE lithium AdvReac Intermediate jitters Verified 10/01/21 13:56 metronidazole AdvReac Intermediate ABD PAIN, Verified 10/01/21 13:56 WEAKNESS, NAUSEA, VOMITING prednisone AdvReac Mild AGGRESSIVE Verified 10/01/21 13:56 BEHAVIOR Home Medications Medication Instructions Recorded Confirmed Type atorvastatin 40 mg tablet 40 mg PO HS 06/19/18 10/01/21 History cetirizine 10 mg tablet 10 mg PO HS 06/19/18 10/01/21 History cholecalciferol (vitamin D3) 25 1,000 unit PO QAM 06/19/18 10/01/21 History mcg (1,000 unit) tablet (Vitamin D3) docusate sodium 100 mg tablet 100 mg PO BID PRN 06/19/18 10/01/21 History epinephrine 0.3 mg/0.3 mL 0.3 mg IM DIRECTED PRN 06/19/18 10/01/21 History injection, auto-injector (EpiPen) fentanyl 50 mcg/hr transdermal 50 mcg TRANSDERMAL [id number] 06/19/18 10/01/21 History patch methocarbamol 750 mg tablet 750 mg PO TID 06/19/18 10/01/21 History multivitamin 1 tab PO QAM 06/19/18 10/01/21 History ondansetron 8 mg disintegrating 8 mg PO BID PRN 06/19/18 10/01/21 History tablet tiotropium bromide 18 mcg capsule 1 cap INHALATION QAM 06/19/18 10/01/21 History with inhalation device (Spiriva with HandiHaler) venlafaxine 150 mg 150 mg PO QAM 06/19/18 10/01/21 History capsule,extended release 24 hr trazodone 100 mg tablet 200 mg PO HS 09/14/18 10/01/21 History venlafaxine 75 mg capsule,extended 75 mg PO QAM 09/14/18 10/01/21 History release 24 hr zolpidem 5 mg tablet 5 mg PO HS 09/14/18 10/01/21 History gabapentin 800 mg tablet 800 mg PO BID 05/28/19 10/01/21 History insulin glargine 100 unit/mL 18 unit SUBCUT BID 03/02/20 10/01/21 History subcutaneous solution (Lantus U-100 Insulin) potassium chloride 10 mEq 10 meq PO TID 03/02/20 10/01/21 History tablet,extended release levalbuterol HCl 1.25 mg/3 mL 1.25 mg INHALATION Q4H PRN 03/24/20 10/01/21 History solution for nebulization nitroglycerin 0.4 mg sublingual 0.4 mg SUBLINGUAL DIRECTED PRN 07/02/20 10/01/21 History tablet (Nitrostat) fluticasone 250 mcg-salmeterol 50 1 inh INHALATION BID 08/01/20 10/01/21 History mcg/dose blistr powdr for inhalation (Advair Diskus) calcitriol 0.25 mcg capsule 0.25 mcg PO 3XWK 10/21/20 10/01/21 History Al hyd-Mg tr-alg ac-sod bicarb 80 1 tab PO TID PRN 11/08/20 10/01/21 History mg-14.2 mg chewable tablet (Gaviscon) acetaminophen 500 mg tablet 500 mg PO Q6H PRN 11/08/20 10/01/21 History furosemide 40 mg tablet 80 mg PO BID 11/08/20 10/01/21 History melatonin 10 mg tablet 10 mg PO HS 11/08/20 10/01/21 History metoprolol succinate 100 mg 100 mg PO BID 11/08/20 10/01/21 History tablet,extended release 24 hr pantoprazole 40 mg tablet,delayed 40 mg PO BID 11/08/20 10/01/21 History release polyethylene glycol 3350 17 17 g PO DAILY PRN 11/08/20 10/01/21 History gram/dose oral powder digoxin 125 mcg (0.125 mg) tablet 125 mcg PO 3XWK 01/04/21 10/01/21 History diltiazem HCl 240 mg 240 mg PO BID 01/04/21 10/01/21 History capsule,extended release 24 hr levalbuterol tartrate 45 1 puff INHALATION Q4H PRN 01/04/21 10/01/21 History mcg/actuation aerosol inhaler (Xopenex HFA) apixaban 5 mg tablet (Eliquis) 5 mg PO BID 02/05/21 10/01/21 History aspirin 81 mg tablet,delayed 81 mg PO QAM #30 tab 02/20/21 10/01/21 Rx release amitriptyline 25 mg tablet 25 mg PO HS 03/21/21 10/01/21 History guaifenesin 600 mg tablet, 600 mg PO BID 03/21/21 10/01/21 History extended release 12 hr (Mucinex) mometasone 50 mcg/actuation nasal 2 spray INTRANASAL QPM 03/21/21 10/01/21 History spray oxycodone 5 mg tablet 5 mg PO Q6H PRN 08/09/21 10/01/21 History cefdinir 300 mg capsule 300 mg PO BID 7 Days #14 cap 09/27/21 10/01/21 Rx Patient History Medical History Anxiety Asthma 2LPM via n/c mostly continuous (although patient states she does not wear this all the time) Atrial fibrillation A fib/a. flutter s/p cardioversion and ablation (2016); s/p pacer (March 2021)/ follows with Javan Maravilla Atrial flutter Follows Javan aMravilla Lynn esophagus Bipolar disorder Chronic back pain Chronic cor pulmonale Chronic right HR Chronic hyponatremia Chronic obstructive pulmonary disease 2LPM via n/c mostly continuous (although patient states she does not wear this all the time) sees Dr. Vickers Chronic pain Chronic respiratory failure with hypoxia, on home oxygen therapy CKD (chronic kidney disease), stage III CVA (cerebral vascular accident) 2004 (per records; patient denies) Depression Diastolic CHF, chronic DM type 2 (diabetes mellitus, type 2) Fibromyalgia Sinclair catheter in place follows with Tahira Tran Gastroparesis GERD (gastroesophageal reflux disease) History of COVID-19 + 10/11/20; fatigue, congestion; resolved. +02/2021 at [facility]. No current problems. History of DVT (deep vein thrombosis) Left "hand" 2004- on AC HTN (hypertension) Hyperlipidemia Hypothyroidism No current medication per doctor orders. 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 Vickers Severe obstructive sleep apnea CPAP Surgical History History of adenoidectomy History of appendectomy LAPAROSCOPY History of cardiac cath 2004= no stents History of cardioversion History of carpal tunnel release left History of cataract surgery BILATERAL History of cholecystectomy LAPAROSCOPY History of colonoscopy History of esophagogastroduodenoscopy (EGD) History of hysterectomy EMIGDIO WITH BSO History of mitral valve repair 2004 + resection fibroelastoma History of tonsillectomy Hx of lumpectomy right breast BENIGN Hx of tubal ligation Hx of umbilical hernia repair S/P epidural steroid injection S/P placement of cardiac pacemaker 03/2021; rapid HR; sees Javan Maravilla; unsure of brand; last check 06/27/21 S/P trigger finger release RIGHT/LEFT Family History Mother Family history of diabetes mellitus Sister Family history of diabetes mellitus Ulcerative colitis Social History Smoking Status: Current every day smoker Tobacco Type: Cigarettes Cigarettes Per Day: 10 cigs per day; Second Hand Exposure: No; Tobacco Cessation Education Requested by Patient: No Hx Alcohol Use: No Hx Substance Use: No Preferred Language: Amharic Communication Ability: Effective Visual Impairment: No Limitations Bicycle Repairer Required: No Beliefs That Will Affect Care: None marital status: Unknown Current Living Situation: Alone Current Living Situation Comment: caregiver comes daily 8-5 Friday through Friday. weekends 9-1pm Other Information That Helps Us Care for You: No Feels Safe at Home: Yes Safety Concerns: Feels Safe At This Time Assistive Devices: Oxygen - Continuous Review of Systems Constitutional: + anorexia; no fever and no chills Gastrointestinal: + abdominal pain, + bloating, + nausea and + diarrhea/loose stools; no vomiting Physical Exam Constitutional: WD/WN, vitals as above Respiratory: normal respiratory effort, lungs clear to auscultation Cardiovascular: RRR, no murmur, no edema Gastrointestinal (Abdomen): Inspection/Auscultation: + abdomen distended Percussion/Palpation: + abdomen tender (mild LLQ), abdomen soft and + tympanic to percussion; no guarding Results & Data ([facility]) Vital Signs (Past 12 Hours) Vital Signs Temp Pulse Resp BP Pulse Ox 10/03/21 07:12 36.8 C 90 18 143/77 H 95 PG Care Time/CCT Total # of Minutes Spent Total Time Spent with Patient: Total time spent is greater than 50% in coordination of care (as documented) at patient's floor/unit and/or counseling patient: Coding Level of Care Code 79981 Inpt Consult Level 3 Diagnoses C. difficile colitis A04.72
[2021-10-03] MEDS: LACTATED RINGER'S 1,000 ML IV SCH (15:01)
[2021-10-03] MEDS: DIGOXIN 0.125 MG TAB PO SCH ×2 (15:40→16:30)
[2021-10-03] MEDS: metroNIDAZOLE 500 MG/100 ML BAG IV SCH ×2 (15:40→22:46)
[2021-10-03] MEDS: VANCOMYCIN HCL 500 MG/100 ML ENEMA PR SCH (16:54)
[2021-10-03] MEDS: cefTRIAXone SODIUM 1,000 MG in DEXTROSE 5% 50 ML IV SCH (17:30)
[2021-10-03] MEDS: AMITRIPTYLINE HCL 25 MG TAB PO SCH (20:44)
[2021-10-03] MEDS: CETIRIZINE HCL 10 MG TABLET PO SCH (20:44)
[2021-10-03] MEDS: ATORVASTATIN 40 MG TAB PO SCH (20:45)
[2021-10-03] MEDS: FLUTICASONE PROPIONATE NA SPR 16 GM BTL SCH (20:49)
[2021-10-04] MEDS: VANCOMYCIN HCL 500 MG/100 ML ENEMA PR SCH ×3 (00:14→16:21)
[2021-10-04] MEDS: CHECK fentaNYL PATCH PLACEMENT SCH ×3 (00:20→16:07)
[2021-10-04] MEDS: RASPBERRY SYRUP 5 ML UDP PO SCH ×4 (00:21→18:12)
[2021-10-04] MEDS: VANCOMYCIN HCL 125 MG/2.5ML SOLN PO SCH ×4 (00:21→18:13)
[2021-10-04] MEDS: LACTATED RINGER'S 1,000 ML IV SCH (02:25)
[2021-10-04 04:58] LABS: Base Excess ABG -5.8 mEq/L (-9-1.8); HCO3 ABG 17 mmol/L (19-24); Oxygen Saturation ABG 88.8 % (90-95); PCO2 ABG 27 mmHg (35-46); PO2 ABG 57 mmHg (80-95); pH ABG 7.41 (7.35-7.45)
[2021-10-04 05:01] LABS: Allen Test POS (Pos)
[2021-10-04 05:11] LABS: Albumin Globulin Ratio 0.9 (0.9-2); Albumin Level 2.8 gm/dl (3.4-5.0); Bilirubin,Total 0.4 mg/dl (0.2-1.0); Calcium 8.5 mg/dl (8.5-10.1); Creatinine Clr Calc Pharmacy 17.8 ml/min; Est GFR (African American) 17.1 ml/min; Est GFR (Non-African American) 14.7 ml/min; Globulin 3.2 gm/dl (2.5-4.0); Magnesium 2.3 mg/dl (1.7-2.4); Potassium 5.3 mmol/L (3.5-5.1)
[2021-10-04] MEDS ORDERED: SODIUM BICARB 8.4% INJ 50 MEQ/50 ML SYR IV STA (05:24)
[2021-10-04 05:25] LABS: Hematocrit (blood only) 50.3 % (37-47); Hemoglobin 17.5 g/dL (12.0-16.0); Mean Corpuscular Hemoglobin 31.1 pg (25-34); Mean Corpuscular Hgb Conc 34.8 g/dL (32-36); Mean Corpuscular Volume 89.5 fL (80-100); Mean Platelet Volume 10.5 fL (7.4-10.4); Nucleated RBC # (auto) 0.03 K/uL (0-0); Nucleated RBC % (auto) 0.1 %; Platelet Count 368 K/uL (130-400); RDW Coefficient of Variation 13.1 % (11.5-14.5); RDW Standard Deviation 43.5 fL (36.4-46.3); Red Blood Count 5.62 M/uL (4.2-5.4); White Blood Count 50.42 K/uL (4.8-10.8)
[2021-10-04 05:26] LABS: Monocytes # (manual) 2.22 K/uL (0.11-0.59); Monocytes % (manual) 4.4 %; Neutrophils % (manual) 95.6 %
[2021-10-04] MEDS ORDERED: SODIUM CHLORIDE 0.9% 1000ML 1,000 ML IV SCH (05:30)
--- NOTE | 2021-10-04 06:20 | Communication Note ---
Date of Service: October 04, 2021 Patient seen yesterday by general surgery secondary to C. difficile colitis. On this morning's labs patient's white blood cell count has risen to 50,000, and her creatinine is risen to 3.1. Patient was visited at bedside. She complains of intermittent abdominal pain. On exam the patient's abdomen is distended and tympanic to percussion. There is no rebound tenderness or guarding. Palpation did not cause significant painful response. Due to worsening labs and abdominal distention we will make the patient n.p.o. and place Eliquis on hold. Dr. Ness will evaluate early this morning to determine if surgical invention will be required. The above plan was discussed with the nursing staff.
[2021-10-04] MEDS ORDERED: DEXTROSE 50% 50 ML SYRINGE IV STA (06:29)
[2021-10-04] MEDS ORDERED: STAT IV STA ×2 (06:30→21:13)
[2021-10-04] MEDS ORDERED: CALCIUM GLUCONATE 10% 1,000 MG in DEXTROSE 5% 50 ML IV ONE (06:45)
[2021-10-04] MEDS ORDERED: INSULIN HUMAN REGULAR PER UNIT 10 UNITS in SYRINGE 9.9 ML IV ONE (06:45)
[2021-10-04] MEDS ORDERED: KCENTRA (500unit vial) 2000 units IVP IV ONE (08:00)
[2021-10-04] MEDS: NICOTINE 21 MG/24 HR TDSY TD SCH (08:05)
[2021-10-04] MEDS: metroNIDAZOLE 500 MG/100 ML BAG IV SCH ×3 (08:19→22:13)
[2021-10-04] MEDS: INSULIN GLARGINE SOLOSTAR 100 UNITS/ML 3 ML PEN SC SCH ×2 (08:26→20:30)
[2021-10-04] MEDS: INSULIN ASPART PER UNIT SC SCH ×4 (08:27→20:29)
--- NOTE | 2021-10-04 08:36 | Cardiology Consultation ---
Date of Consultation October 04, 2021 Assessment & Plan (1) Junctional tachycardia: (2) RBBB: Wide complex tachycardia seen on EKG. Likely due to RBBB. Tele showed ST with an ? accelerated junctional rhythm. Device interrogated showing no evidence of atrial arrhythmias. Rhythm likely junctional tachycardia in the setting of acute illness and electrolyte abnormalities. In the past it was felt she would not be a great candidate for antiarrhythmic therapy due to QT prolongation from her psych medications (per chart review). 1. Continue to monitor renal function and electrolytes- replace as necessary. 2. With improvement in clinical status, arrhythmias should improve. will continue to follow. (3) Right heart failure: Chronic right heart failure, cor pulmonale physiology. CXR today somewhat improved from previous. (4) Chronic respiratory failure with hypoxia, on home O2 therapy: On chronic o2 therapy at home. Continues to smoke at home, has been smoking 1/2 ppd since the age of 13. 1. Reccomend smoking cessation as an outpatient. (5) C. difficile colitis: Worsening WBCs increased confusion. Plans for emergent total abdominal colectomy with ileostomy today. Gen surgery on board. Supervising Physician Co-Signing Physician Notes Patient seen and examined at the bedside. Minimally responsive to verbal stimuli. Unable to answer questions appropriately. She has been taken to the operating room urgently due to C. difficile colitis for colectomy and creation of ileostomy. Telemetry revealing sinus tachycardia as well as ectopic atrial tachycardia/junctional tachycardia. Pacemaker interrogation reveals normal function. Chest x-ray revealing possible right lower lobe infiltrate. She does not appear overtly volume overloaded. PE: Tachycardic, borderline hypertensive. General: Acutely ill. No labored breathing or retractions. Heart: Regular, tachycardic, normal S1-S2. Lungs: Coarse breath sounds bilaterally as auscultated anteriorly. Extremities: No clubbing, cyanosis, edema. A/P: Agree with above AP history, physical exam, assessment and plan. Pacemaker interrogation reviewed without evidence of sustained dysrhythmia. Elevated heart rate currently physiologic in the setting of acute C. difficile colitis with sepsis. Urgent surgical procedure is indicated. Recommend adding intravenous Lopressor 5 mg every 6 hours postoperatively to avoid beta-mana withdrawal. Supplement electrolytes as needed. Cardiology will follow along postoperatively for supportive care. History of Present Illness Reason for Consultation: Wide complex tachycardia Requesting Physician: Kandy. Hospitalist Attending Physician: Asha Glynn MD History of Present Illness 65 year old medically complex female. Last seen my Javan Maravilla PA-C as outpatient cardiology. PMHx of Gladys. fib on Eliquis, chronic diastolic CHF, HTN, HLD, status post mitral valve repair in 2004, chronic cor pulmonale, chronic hyponatremia, COPD (current smoker) CKD stage III, hypothyroidism, history of DVT in left hand and left leg, DM type II, bipolar, depression, anxiety, and history of COVID infection in September 2020. Full problem list below. Presented to ED with Lower abdominal pain and acute UTI, placed on Abx. Stool tested. Patient dx with Cdfif colitis- vanco added. Lasix held due to hypovolemia. Gen surg consulted due to Ileus seen on CT, initially felt that surgery was not required however over night patient developed worsening symptoms. Patient currently NPO and eliquis is being held. Renal function back to baseline Cardiology consulted due to unidentified "wide complex" rhythm on monitor- patient has a know RBBB, rates in the 90s. Device interrogated today without any evidence of atrial arrhythmias, no afib. possibly a junctional tachycardia. Has been SR with a possible accelerated junctional rhythm overnight on tele. No pacing noted. NA 134, K 3.4, BUN 57, Scr 3.17 (baseline 1.3-1.5 outpatient), Trop 0.36, WBC 50.42, Hgb 14.5, Hct 50.3 [address]ing in bed. Ill appearing, worsening shortness of breath. No chest pain. Requiring increased O2 supplementation. Lung sounds are course, but CXR shows mild improvement. Patient somewhat confused. Unable to answer ROS questions fully. Does know where she is at, but unsure why. Planning on undergoing emergent total abdominal colectomy with ileostomy. 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 -May 02, [address] Masterson, status post ablation of the tricuspid valve to inferior vena caval isthmus with bidirectional block and termination of atrial flutter. Post ablation electrophysiologic study showed dual pathways with echo beats, no inducible SVT however extensive induction was not attempted -She has not been felt to be a great candidate for antiarrhythmic therapy due to QT prolongation from her psych medications. -Status post March 27, 2021 permanent pacemaker implantation by Dr. Romero - Hx of LA appendage mural thrombus, transitioned to Eliquis 11/17/2019 -Severe COPD, Chonic 2L O2 NC -DARIUS, on CPAP -Severe pulmonary hypertension -Chronic right heart failure, cor pulmonale physiology -HTN -DM2 -CKD3 -Left adrenal mass Social History: Smoker. She has smoked since the age of 13, currently 1/2 ppd. No current alcohol consumption though with a history of past use/abuse. She denies illegal drug use. Allergies Allergy/AdvReac Type Severity Reaction Status Date / Time bee venom protein (honey bee) Allergy Severe Anaphylaxis Verified 10/01/21 13:56 lisinopril Allergy Severe ANGIOEDEMA, Verified 10/01/21 13:56 FACIAL CELLULITIS, RASH strawberry Allergy Severe LIPS, Verified 10/01/21 13:56 TONGUE, FACE SWELLS alprazolam Allergy Intermediate RED FACE, Verified 10/01/21 13:56 FACE SWELLING alendronate sodium Allergy Unknown ON GMG MED Verified 10/01/21 13:56 LIST colesevelam AdvReac Intermediate Abdominal Verified 10/01/21 13:56 Pain lactose AdvReac Intermediate VOMTING Verified 10/01/21 13:56 DIARRHEA ABDOMINAL PAIN-LACTOSE INTOLERANCE lithium AdvReac Intermediate jitters Verified 10/01/21 13:56 metronidazole AdvReac Intermediate ABD PAIN, Verified 10/01/21 13:56 WEAKNESS, NAUSEA, VOMITING prednisone AdvReac Mild AGGRESSIVE Verified 10/01/21 13:56 BEHAVIOR Home Medications Medication Instructions Recorded Confirmed Type atorvastatin 40 mg tablet 40 mg PO HS 06/19/18 10/01/21 History cetirizine 10 mg tablet 10 mg PO HS 06/19/18 10/01/21 History cholecalciferol (vitamin D3) 25 1,000 unit PO QAM 06/19/18 10/01/21 History mcg (1,000 unit) tablet (Vitamin D3) docusate sodium 100 mg tablet 100 mg PO BID PRN 06/19/18 10/01/21 History epinephrine 0.3 mg/0.3 mL 0.3 mg IM DIRECTED PRN 06/19/18 10/01/21 History injection, auto-injector (EpiPen) fentanyl 50 mcg/hr transdermal 50 mcg TRANSDERMAL [id number] 06/19/18 10/01/21 History patch methocarbamol 750 mg tablet 750 mg PO TID 06/19/18 10/01/21 History multivitamin 1 tab PO QAM 06/19/18 10/01/21 History ondansetron 8 mg disintegrating 8 mg PO BID PRN 06/19/18 10/01/21 History tablet tiotropium bromide 18 mcg capsule 1 cap INHALATION QAM 06/19/18 10/01/21 History with inhalation device (Spiriva with HandiHaler) venlafaxine 150 mg 150 mg PO QAM 06/19/18 10/01/21 History capsule,extended release 24 hr trazodone 100 mg tablet 200 mg PO HS 09/14/18 10/01/21 History venlafaxine 75 mg capsule,extended 75 mg PO QAM 09/14/18 10/01/21 History release 24 hr zolpidem 5 mg tablet 5 mg PO HS 09/14/18 10/01/21 History gabapentin 800 mg tablet 800 mg PO BID 05/28/19 10/01/21 History insulin glargine 100 unit/mL 18 unit SUBCUT BID 03/02/20 10/01/21 History subcutaneous solution (Lantus U-100 Insulin) potassium chloride 10 mEq 10 meq PO TID 03/02/20 10/01/21 History tablet,extended release levalbuterol HCl 1.25 mg/3 mL 1.25 mg INHALATION Q4H PRN 03/24/20 10/01/21 History solution for nebulization nitroglycerin 0.4 mg sublingual 0.4 mg SUBLINGUAL DIRECTED PRN 07/02/20 10/01/21 History tablet (Nitrostat) fluticasone 250 mcg-salmeterol 50 1 inh INHALATION BID 08/01/20 10/01/21 History mcg/dose blistr powdr for inhalation (Advair Diskus) calcitriol 0.25 mcg capsule 0.25 mcg PO 3XWK 10/21/20 10/01/21 History Al hyd-Mg tr-alg ac-sod bicarb 80 1 tab PO TID PRN 11/08/20 10/01/21 History mg-14.2 mg chewable tablet (Gaviscon) acetaminophen 500 mg tablet 500 mg PO Q6H PRN 11/08/20 10/01/21 History furosemide 40 mg tablet 80 mg PO BID 11/08/20 10/01/21 History melatonin 10 mg tablet 10 mg PO HS 11/08/20 10/01/21 History metoprolol succinate 100 mg 100 mg PO BID 11/08/20 10/01/21 History tablet,extended release 24 hr pantoprazole 40 mg tablet,delayed 40 mg PO BID 11/08/20 10/01/21 History release polyethylene glycol 3350 17 17 g PO DAILY PRN 11/08/20 10/01/21 History gram/dose oral powder digoxin 125 mcg (0.125 mg) tablet 125 mcg PO 3XWK 01/04/21 10/01/21 History diltiazem HCl 240 mg 240 mg PO BID 01/04/21 10/01/21 History capsule,extended release 24 hr levalbuterol tartrate 45 1 puff INHALATION Q4H PRN 01/04/21 10/01/21 History mcg/actuation aerosol inhaler (Xopenex HFA) apixaban 5 mg tablet (Eliquis) 5 mg PO BID 02/05/21 10/01/21 History aspirin 81 mg tablet,delayed 81 mg PO QAM #30 tab 02/20/21 10/01/21 Rx release amitriptyline 25 mg tablet 25 mg PO HS 03/21/21 10/01/21 History guaifenesin 600 mg tablet, 600 mg PO BID 03/21/21 10/01/21 History extended release 12 hr (Mucinex) mometasone 50 mcg/actuation nasal 2 spray INTRANASAL QPM 03/21/21 10/01/21 History spray oxycodone 5 mg tablet 5 mg PO Q6H PRN 08/09/21 10/01/21 History cefdinir 300 mg capsule 300 mg PO BID 7 Days #14 cap 09/27/21 10/01/21 Rx Patient History Medical History Anxiety Asthma 2LPM via n/c mostly continuous (although patient states she does not wear this all the time) Atrial fibrillation A fib/a. flutter s/p cardioversion and ablation (2016); s/p pacer (March 2021) / follows with Javan Maravilla Atrial flutter Follows Javan Maravilla Lynn esophagus Bipolar disorder Chronic back pain Chronic cor pulmonale Chronic right HR Chronic hyponatremia Chronic obstructive pulmonary disease 2LPM via n/c mostly continuous (although patient states she does not wear this all the time) sees Dr. Vickers Chronic pain Chronic respiratory failure with hypoxia, on home oxygen therapy CKD (chronic kidney disease), stage III CVA (cerebral vascular accident) 2004 (per records; patient denies) Depression Diastolic CHF, chronic DM type 2 (diabetes mellitus, type 2) Fibromyalgia Sinclair catheter in place follows with Tahira Tran Gastroparesis GERD (gastroesophageal reflux disease) History of COVID-19 + 10/11/20; fatigue, congestion; resolved. +02/2021 at [facility]. No current pr oblems. History of DVT (deep vein thrombosis) Left "hand" 2004- on AC HTN (hypertension) Hyperlipidemia Hypothyroidism No current medication per doctor orders. 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 Vickers Severe obstructive sleep apnea CPAP Surgical History History of adenoidectomy History of appendectomy LAPAROSCOPY History of cardiac cath 2004= no stents History of cardioversion History of carpal tunnel release left History of cataract surgery BILATERAL History of cholecystectomy LAPAROSCOPY History of colonoscopy History of esophagogastroduodenoscopy (EGD) History of hysterectomy EMIGDIO WITH BSO History of mitral valve repair 2004 + resection fibroelastoma History of tonsillectomy Hx of lumpectomy right breast BENIGN Hx of tubal ligation Hx of umbilical hernia repair S/P epidural steroid injection S/P placement of cardiac pacemaker 03/2021; rapid HR; sees Javan Maravilla; unsure of brand; last check 06/27/21 S/P trigger finger release RIGHT/LEFT Family History Mother Family history of diabetes mellitus Sister Family history of diabetes mellitus Ulcerative colitis Social History Smoking Status: Current every day smoker Tobacco Type: Cigarettes Cigarettes Per Day: 10 cigs per day; Second Hand Exposure: No; Tobacco Cessation Education Requested by Patient: No Hx Alcohol Use: No Hx Substance Use: No Preferred Language: Spanish Communication Ability: Effective Visual Impairment: No Limitations Credit Review Manager Required: No Beliefs That Will Affect Care: None marital status: Unknown Current Living Situation: Alone Current Living Situation Comment: caregiver comes daily 8-5 Friday through Friday. weekends 9-1pm Other Information That Helps Us Care for You: No Feels Safe at Home: Yes Safety Concerns: Feels Safe At This Time Assistive Devices: Oxygen - Continuous Review of Systems Review of Systems: Unobtainable due to cognitive status Physical Exam Physical Exam: General: Acutely ill appearing A+Ox1-2. HEENT: Normocephalic. Atraumatic. Conjunctiva and sclera clear. Heart: Tachycardiac. S1 and S2 noted without murmur, rubs, gallops. Lungs: Course lung sounds throughout Abdomen: Distended. Hypoactive BS Extremities: No edema. No clubbing or cyanosis. Pulses: radial=2/4, posterior tibial=2/4, dorsalis pedis = 2/4. NEURO: No focal deficits. Results & Data ([facility]) Vital Signs (Past 12 Hours) Vital Signs Temp Pulse Pulse Resp BP Pulse Ox 10/03/21 23:07 36.7 C 98 H 20 149/83 H 93 10/03/21 22:59 103 H 10/03/21 22:39 101 H Laboratory Results 10/04/21 10/04/21 10/04/21 Range/Units 08:18 07:39 07:26 WBC (4.8-10.8) K/uL RBC (4.2-5.4) M/uL Hgb (12.0-16.0) g/dL Hct (37-47) % MCV (80-100) fL MCH (25-34) pg MCHC (32-36) g/dL RDW Std Deviation (36.4-46.3) fL RDW Coeff of King (11.5-14.5) % Plt Count (130-400) K/uL MPV (7.4-10.4) fL Absolute Nucleated RBC (0-0) K/uL Nucleated RBC % (auto) % Neutrophils % (Manual) % Lymphocytes % (Manual) % Monocytes % (Manual) % Neutrophils # (Manual) (1.4-6.5) K/uL Total Absolute Neuts (1.4-6.5) K/uL Total Abs Lymphocytes (1.2-3.4) K/uL Monocytes # (Manual) (0.11-0.59) K/uL ABG pH (7.35-7.45) ABG pCO2 (35-46) mmHg ABG pO2 (80-95) mmHg ABG HCO3 (19-24) mmol/L ABG O2 Saturation (90-95) % ABG Base Excess (-9-1.8) mEq/L Alexandr Test (Pos) Barometric Pressure mm/Hg Oxygen Given Sodium (136-145) mmol/L Potassium (3.5-5.1) mmol/L Chloride (98-107) mmol/L Carbon Dioxide (21-32) mmol/L Anion Gap (3-11) BUN (6-23) mg/dl Creatinine (0.6-1.2) mg/dl Est Cr Clr Drug Dosing ml/min Est GFR ( Amer) ml/min Est GFR (Non-Af Amer) ml/min BUN/Creatinine Ratio (10-20) Glucose (70-99(Fasting)) mg/dl POC Glucose 145 H 167 H (70-99) mg/dl Osmolality (280-300) mOsm/kg Calcium (8.5-10.1) mg/dl Phosphorus (2.5-4.9) mg/dl Magnesium (1.7-2.4) mg/dl Total Bilirubin (0.2-1.0) mg/dl AST (13-39) U/L ALT (7-52) U/L Alkaline Phosphatase (34-104) U/L Ammonia (18-72) umol/L Troponin I 0.36 H* (0-0.04) ng/ml Total Protein (6.0-8.3) gm/dl Albumin (3.4-5.0) gm/dl Globulin (2.5-4.0) gm/dl Albumin/Globulin Ratio (0.9-2) Urine Osmolality (500-800) mOsm/kg Ur Random Sodium mmol/L Stl C. cayetanensis PCR (NotDetected) Stool Rotavirus A PCR (NotDetected) Stl Adenov F 40/41 PCR (NotDetected) Stool Astrovirus (PCR) (NotDetected) Stool Campylobacter PCR (NotDetected) Stl C.difficile Tox A&B (Negative) Stl C. diff Tox A/B PCR (NotDetected) Stool Cryptosporidium PCR (NotDetected) Stl E.coli Shiga Tox PCR (NotDetected) Stl Enterotoxigenic E PCR (NotDetected) Stool EPEC (PCR) (NotDetected) Stool EAEC (PCR) (NotDetected) Stl E. histolytica PCR (NotDetected) Stool Giardia Lamblia PCR (NotDetected) Stool Salmonella PCR (NotDetected) Stool Sapovirus (PCR) (NotDetected) Stl P. shigelloides PCR (NotDetected) Stl Shigella/EIEC PCR (NotDetected) St Y.enterocolitica PCR (NotDetected) Stool Vibrio (PCR) (NotDetected) Stl Vibrio cholerae PCR (NotDetected) Stl Norovirus GI/GII PCR (NotDetected) 10/04/21 10/04/21 10/04/21 Range/Units 04:26 04:26 04:26 WBC (4.8-10.8) K/uL RBC (4.2-5.4) M/uL Hgb (12.0-16.0) g/dL Hct (37-47) % MCV (80-100) fL MCH (25-34) pg MCHC (32-36) g/dL RDW Std Deviation (36.4-46.3) fL RDW Coeff of King (11.5-14.5) % Plt Count (130-400) K/uL MPV (7.4-10.4) fL Absolute Nucleated RBC (0-0) K/uL Nucleated RBC % (auto) % Neutrophils % (Manual) % Lymphocytes % (Manual) % Monocytes % (Manual) % Neutrophils # (Manual) (1.4-6.5) K/uL Total Absolute Neuts (1.4-6.5) K/uL Total Abs Lymphocytes (1.2-3.4) K/uL Monocytes # (Manual) (0.11-0.59) K/uL ABG pH 7.41 (7.35-7.45) ABG pCO2 27 L (35-46) mmHg ABG pO2 57 L (80-95) mmHg ABG HCO3 17 L (19-24) mmol/L ABG O2 Saturation 88.8 L (90-95) % ABG Base Excess -5.8 (-9-1.8) mEq/L Alexandr Test POS (Pos) Barometric Pressure 732.7 mm/Hg Oxygen Given 4 L Sodium 134 L (136-145) mmol/L Potassium 5.3 H (3.5-5.1) mmol/L Chloride 100 (98-107) mmol/L Carbon Dioxide 17 L (21-32) mmol/L Anion Gap 17 H (3-11) BUN 57 H (6-23) mg/dl Creatinine 3.17 H D (0.6-1.2) mg/dl Est Cr Clr Drug Dosing 17.8 ml/min Est GFR ( Amer) 17.1 ml/min Est GFR (Non-Af Amer) 14.7 ml/min BUN/Creatinine Ratio 18.0 (10-20) Glucose 190 H (70-99(Fasting)) mg/dl POC Glucose (70-99) mg/dl Osmolality (280-300) mOsm/kg Calcium 8.5 (8.5-10.1) mg/dl Phosphorus (2.5-4.9) mg/dl Magnesium 2.3 (1.7-2.4) mg/dl Total Bilirubin 0.4 (0.2-1.0) mg/dl AST 34 (13-39) U/L ALT 21 (7-52) U/L Alkaline Phosphatase 149 H (34-104) U/L Ammonia 35.0 (18-72) umol/L Troponin I (0-0.04) ng/ml Total Protein 6.0 (6.0-8.3) gm/dl Albumin 2.8 L (3.4-5.0) gm/dl Globulin 3.2 (2.5-4.0) gm/dl Albumin/Globulin Ratio 0.9 (0.9-2) Urine Osmolality (500-800) mOsm/kg Ur Random Sodium mmol/L Stl C. cayetanensis PCR (NotDetected) Stool Rotavirus A PCR (NotDetected) Stl Adenov F 40/41 PCR (NotDetected) Stool Astrovirus (PCR) (NotDetected) Stool Campylobacter PCR (NotDetected) Stl C.difficile Tox A&B (Negative) Stl C. diff Tox A/B PCR (NotDetected) Stool Cryptosporidium PCR (NotDetected) Stl E.coli Shiga Tox PCR (NotDetected) Stl Enterotoxigenic E PCR (NotDetected) Stool EPEC (PCR) (NotDetected) Stool EAEC (PCR) (NotDetected) Stl E. histolytica PCR (NotDetected) Stool Giardia Lamblia PCR (NotDetected) Stool Salmonella PCR (NotDetected) Stool Sapovirus (PCR) (NotDetected) Stl P. shigelloides PCR (NotDetected) Stl Shigella/EIEC PCR (NotDetected) St Y.enterocolitica PCR (NotDetected) Stool Vibrio (PCR) (NotDetected) Stl Vibrio cholerae PCR (NotDetected) Stl Norovirus GI/GII PCR (NotDetected) 10/04/21 10/04/21 10/04/21 Range/Units 04:26 03:17 00:00 WBC 50.42 H* (4.8-10.8) K/uL RBC 5.62 H (4.2-5.4) M/uL Hgb 17.5 H (12.0-16.0) g/dL Hct 50.3 H (37-47) % MCV 89.5 (80-100) fL MCH 31.1 (25-34) pg MCHC 34.8 (32-36) g/dL RDW Std Deviation 43.5 (36.4-46.3) fL RDW Coeff of King 13.1 (11.5-14.5) % Plt Count 368 (130-400) K/uL MPV 10.5 H (7.4-10.4) fL Absolute Nucleated RBC 0.03 H (0-0) K/uL Nucleated RBC % (auto) 0.1 % Neutrophils % (Manual) 95.6 % Lymphocytes % (Manual) 0.0 % Monocytes % (Manual) 4.4 % Neutrophils # (Manual) 48.20 H (1.4-6.5) K/uL Total Absolute Neuts 48.20 H (1.4-6.5) K/uL Total Abs Lymphocytes 0.00 L (1.2-3.4) K/uL Monocytes # (Manual) 2.22 H (0.11-0.59) K/uL ABG pH (7.35-7.45) ABG pCO2 (35-46) mmHg ABG pO2 (80-95) mmHg ABG HCO3 (19-24) mmol/L ABG O2 Saturation (90-95) % ABG Base Excess (-9-1.8) mEq/L Alexandr Test (Pos) Barometric Pressure mm/Hg Oxygen Given Sodium (136-145) mmol/L Potassium (3.5-5.1) mmol/L Chloride (98-107) mmol/L Carbon Dioxide (21-32) mmol/L Anion Gap (3-11) BUN (6-23) mg/dl Creatinine (0.6-1.2) mg/dl Est Cr Clr Drug Dosing ml/min Est GFR ( Amer) ml/min Est GFR (Non-Af Amer) ml/min BUN/Creatinine Ratio (10-20) Glucose (70-99(Fasting)) mg/dl POC Glucose 190 H 197 H (70-99) mg/dl Osmolality (280-300) mOsm/kg Calcium (8.5-10.1) mg/dl Phosphorus (2.5-4.9) mg/dl Magnesium (1.7-2.4) mg/dl Total Bilirubin (0.2-1.0) mg/dl AST (13-39) U/L ALT (7-52) U/L Alkaline Phosphatase (34-104) U/L Ammonia (18-72) umol/L Troponin I (0-0.04) ng/ml Total Protein (6.0-8.3) gm/dl Albumin (3.4-5.0) gm/dl Globulin (2.5-4.0) gm/dl Albumin/Globulin Ratio (0.9-2) Urine Osmolality (500-800) mOsm/kg Ur Random Sodium mmol/L Stl C. cayetanensis PCR (NotDetected) Stool Rotavirus A PCR (NotDetected) Stl Adenov F 40/41 PCR (NotDetected) Stool Astrovirus (PCR) (NotDetected) Stool Campylobacter PCR (NotDetected) Stl C.difficile Tox A&B (Negative) Stl C. diff Tox A/B PCR (NotDetected) Stool Cryptosporidium PCR (NotDetected) Stl E.coli Shiga Tox PCR (NotDetected) Stl Enterotoxigenic E PCR (NotDetected) Stool EPEC (PCR) (NotDetected) Stool EAEC (PCR) (NotDetected) Stl E. histolytica PCR (NotDetected) Stool Giardia Lamblia PCR (NotDetected) Stool Salmonella PCR (NotDetected) Stool Sapovirus (PCR) (NotDetected) Stl P. shigelloides PCR (NotDetected) Stl Shigella/EIEC PCR (NotDetected) St Y.enterocolitica PCR (NotDetected) Stool Vibrio (PCR) (NotDetected) Stl Vibrio cholerae PCR (NotDetected) Stl Norovirus GI/GII PCR (NotDetected) 10/03/21 10/03/21 10/03/21 Range/Units Unknown 23:13 20:35 WBC (4.8-10.8) K/uL RBC (4.2-5.4) M/uL Hgb (12.0-16.0) g/dL Hct (37-47) % MCV (80-100) fL MCH (25-34) pg MCHC (32-36) g/dL RDW Std Deviation (36.4-46.3) fL RDW Coeff of King (11.5-14.5) % Plt Count (130-400) K/uL MPV (7.4-10.4) fL Absolute Nucleated RBC (0-0) K/uL Nucleated RBC % (auto) % Neutrophils % (Manual) % Lymphocytes % (Manual) % Monocytes % (Manual) % Neutrophils # (Manual) (1.4-6.5) K/uL Total Absolute Neuts (1.4-6.5) K/uL Total Abs Lymphocytes (1.2-3.4) K/uL Monocytes # (Manual) (0.11-0.59) K/uL ABG pH (7.35-7.45) ABG pCO2 (35-46) mmHg ABG pO2 (80-95) mmHg ABG HCO3 (19-24) mmol/L ABG O2 Saturation (90-95) % ABG Base Excess (-9-1.8) mEq/L Alexandr Test (Pos) Barometric Pressure mm/Hg Oxygen Given Sodium (136-145) mmol/L Potassium (3.5-5.1) mmol/L Chloride (98-107) mmol/L Carbon Dioxide (21-32) mmol/L Anion Gap (3-11) BUN (6-23) mg/dl Creatinine (0.6-1.2) mg/dl Est Cr Clr Drug Dosing ml/min Est GFR ( Amer) ml/min Est GFR (Non-Af Amer) ml/min BUN/Creatinine Ratio (10-20) Glucose (70-99(Fasting)) mg/dl POC Glucose 177 H 164 H (70-99) mg/dl Osmolality (280-300) mOsm/kg Calcium (8.5-10.1) mg/dl Phosphorus (2.5-4.9) mg/dl Magnesium (1.7-2.4) mg/dl Total Bilirubin (0.2-1.0) mg/dl AST (13-39) U/L ALT (7-52) U/L Alkaline Phosphatase (34-104) U/L Ammonia (18-72) umol/L Troponin I (0-0.04) ng/ml Total Protein (6.0-8.3) gm/dl Albumin (3.4-5.0) gm/dl Globulin (2.5-4.0) gm/dl Albumin/Globulin Ratio (0.9-2) Urine Osmolality (500-800) mOsm/kg Ur Random Sodium mmol/L Stl C. cayetanensis PCR Not Detected (NotDetected) Stool Rotavirus A PCR Not Detected (NotDetected) Stl Adenov F 40/41 PCR Not Detected (NotDetected) Stool Astrovirus (PCR) Not Detected (NotDetected) Stool Campylobacter PCR Not Detected (NotDetected) Stl C.difficile Tox A&B Positive Cdiff Toxin A* (Negative) Stl C. diff Tox A/B PCR C.diff Gene Detected A (NotDetected) Stool Cryptosporidium PCR Not Detected (NotDetected) Stl E.coli Shiga Tox PCR Not Detected (NotDetected) Stl Enterotoxigenic E PCR Not Detected (NotDetected) Stool EPEC (PCR) Not Detected (NotDetected) Stool EAEC (PCR) Not Detected (NotDetected) Stl E. histolytica PCR Not Detected (NotDetected) Stool Giardia Lamblia PCR Not Detected (NotDetected) Stool Salmonella PCR Not Detected (NotDetected) Stool Sapovirus (PCR) Not Detected (NotDetected) Stl P. shigelloides PCR Not Detected (NotDetected) Stl Shigella/EIEC PCR Not Detected (NotDetected) St Y.enterocolitica PCR Not Detected (NotDetected) Stool Vibrio (PCR) Not Detected (NotDetected) Stl Vibrio cholerae PCR Not Detected (NotDetected) Stl Norovirus GI/GII PCR Not Detected (NotDetected) 10/03/21 10/03/21 10/03/21 Range/Units 17:15 13:00 13:00 WBC (4.8-10.8) K/uL RBC (4.2-5.4) M/uL Hgb (12.0-16.0) g/dL Hct (37-47) % MCV (80-100) fL MCH (25-34) pg MCHC (32-36) g/dL RDW Std Deviation (36.4-46.3) fL RDW Coeff of King (11.5-14.5) % Plt Count (130-400) K/uL MPV (7.4-10.4) fL Absolute Nucleated RBC (0-0) K/uL Nucleated RBC % (auto) % Neutrophils % (Manual) % Lymphocytes % (Manual) % Monocytes % (Manual) % Neutrophils # (Manual) (1.4-6.5) K/uL Total Absolute Neuts (1.4-6.5) K/uL Total Abs Lymphocytes (1.2-3.4) K/uL Monocytes # (Manual) (0.11-0.59) K/uL ABG pH (7.35-7.45) ABG pCO2 (35-46) mmHg ABG pO2 (80-95) mmHg ABG HCO3 (19-24) mmol/L ABG O2 Saturation (90-95) % ABG Base Excess (-9-1.8) mEq/L Alexandr Test (Pos) Barometric Pressure mm/Hg Oxygen Given Sodium (136-145) mmol/L Potassium (3.5-5.1) mmol/L Chloride (98-107) mmol/L Carbon Dioxide (21-32) mmol/L Anion Gap (3-11) BUN (6-23) mg/dl Creatinine (0.6-1.2) mg/dl Est Cr Clr Drug Dosing ml/min Est GFR ( Amer) ml/min Est GFR (Non-Af Amer) ml/min BUN/Creatinine Ratio (10-20) Glucose (70-99(Fasting)) mg/dl POC Glucose 187 H (70-99) mg/dl Osmolality (280-300) mOsm/kg Calcium (8.5-10.1) mg/dl Phosphorus (2.5-4.9) mg/dl Magnesium (1.7-2.4) mg/dl Total Bilirubin (0.2-1.0) mg/dl AST (13-39) U/L ALT (7-52) U/L Alkaline Phosphatase (34-104) U/L Ammonia (18-72) umol/L Troponin I (0-0.04) ng/ml Total Protein (6.0-8.3) gm/dl Albumin (3.4-5.0) gm/dl Globulin (2.5-4.0) gm/dl Albumin/Globulin Ratio (0.9-2) Urine Osmolality 341 L (500-800) mOsm/kg Ur Random Sodium < 10 mmol/L Stl C. cayetanensis PCR (NotDetected) Stool Rotavirus A PCR (NotDetected) Stl Adenov F 40/41 PCR (NotDetected) Stool Astrovirus (PCR) (NotDetected) Stool Campylobacter PCR (NotDetected) Stl C.difficile Tox A&B (Negative) Stl C. diff Tox A/B PCR (NotDetected) Stool Cryptosporidium PCR (NotDetected) Stl E.coli Shiga Tox PCR (NotDetected) Stl Enterotoxigenic E PCR (NotDetected) Stool EPEC (PCR) (NotDetected) Stool EAEC (PCR) (NotDetected) Stl E. histolytica PCR (NotDetected) Stool Giardia Lamblia PCR (NotDetected) Stool Salmonella PCR (NotDetected) Stool Sapovirus (PCR) (NotDetected) Stl P. shigelloides PCR (NotDetected) Stl Shigella/EIEC PCR (NotDetected) St Y.enterocolitica PCR (NotDetected) Stool Vibrio (PCR) (NotDetected) Stl Vibrio cholerae PCR (NotDetected) Stl Norovirus GI/GII PCR (NotDetected) 10/03/21 10/03/21 10/03/21 Range/Units 12:29 12:04 07:56 WBC (4.8-10.8) K/uL RBC (4.2-5.4) M/uL Hgb (12.0-16.0) g/dL Hct (37-47) % MCV (80-100) fL MCH (25-34) pg MCHC (32-36) g/dL RDW Std Deviation (36.4-46.3) fL RDW Coeff of King (11.5-14.5) % Plt Count (130-400) K/uL MPV (7.4-10.4) fL Absolute Nucleated RBC (0-0) K/uL Nucleated RBC % (auto) % Neutrophils % (Manual) % Lymphocytes % (Manual) % Monocytes % (Manual) % Neutrophils # (Manual) (1.4-6.5) K/uL Total Absolute Neuts (1.4-6.5) K/uL Total Abs Lymphocytes (1.2-3.4) K/uL Monocytes # (Manual) (0.11-0.59) K/uL ABG pH (7.35-7.45) ABG pCO2 (35-46) mmHg ABG pO2 (80-95) mmHg ABG HCO3 (19-24) mmol/L ABG O2 Saturation (90-95) % ABG Base Excess (-9-1.8) mEq/L Alexandr Test (Pos) Barometric Pressure mm/Hg Oxygen Given Sodium 129 L (136-145) mmol/L Potassium 4.3 (3.5-5.1) mmol/L Chloride 100 (98-107) mmol/L Carbon Dioxide 21 (21-32) mmol/L Anion Gap 8 (3-11) BUN 42 H (6-23) mg/dl Creatinine 2.33 H D (0.6-1.2) mg/dl Est Cr Clr Drug Dosing 24.2 ml/min Est GFR ( Amer) 24.8 ml/min Est GFR (Non-Af Amer) 21.4 ml/min BUN/Creatinine Ratio 18.0 (10-20) Glucose 205 H (70-99(Fasting)) mg/dl POC Glucose 194 H (70-99) mg/dl Osmolality 289 (280-300) mOsm/kg Calcium 8.0 L (8.5-10.1) mg/dl Phosphorus 4.0 (2.5-4.9) mg/dl Magnesium 2.1 (1.7-2.4) mg/dl Total Bilirubin 0.3 (0.2-1.0) mg/dl AST 18 (13-39) U/L ALT 14 (7-52) U/L Alkaline Phosphatase 128 H (34-104) U/L Ammonia (18-72) umol/L Troponin I (0-0.04) ng/ml Total Protein 5.5 L (6.0-8.3) gm/dl Albumin 2.7 L (3.4-5.0) gm/dl Globulin 2.8 (2.5-4.0) gm/dl Albumin/Globulin Ratio 1.0 (0.9-2) Urine Osmolality (500-800) mOsm/kg Ur Random Sodium mmol/L Stl C. cayetanensis PCR (NotDetected) Stool Rotavirus A PCR (NotDetected) Stl Adenov F 40/41 PCR (NotDetected) Stool Astrovirus (PCR) (NotDetected) Stool Campylobacter PCR (NotDetected) Stl C.difficile Tox A&B (Negative) Stl C. diff Tox A/B PCR (NotDetected) Stool Cryptosporidium PCR (NotDetected) Stl E.coli Shiga Tox PCR (NotDetected) Stl Enterotoxigenic E PCR (NotDetected) Stool EPEC (PCR) (NotDetected) Stool EAEC (PCR) (NotDetected) Stl E. histolytica PCR (NotDetected) Stool Giardia Lamblia PCR (NotDetected) Stool Salmonella PCR (NotDetected) Stool Sapovirus (PCR) (NotDetected) Stl P. shigelloides PCR (NotDetected) Stl Shigella/EIEC PCR (NotDetected) St Y.enterocolitica PCR (NotDetected) Stool Vibrio (PCR) (NotDetected) Stl Vibrio cholerae PCR (NotDetected) Stl Norovirus GI/GII PCR (NotDetected) 10/01/21 Range/Units 19:57 WBC (4.8-10.8) K/uL RBC (4.2-5.4) M/uL Hgb (12.0-16.0) g/dL Hct (37-47) % MCV (80-100) fL MCH (25-34) pg MCHC (32-36) g/dL RDW Std Deviation (36.4-46.3) fL RDW Coeff of King (11.5-14.5) % Plt Count (130-400) K/uL MPV (7.4-10.4) fL Absolute Nucleated RBC (0-0) K/uL Nucleated RBC % (auto) % Neutrophils % (Manual) % Lymphocytes % (Manual) % Monocytes % (Manual) % Neutrophils # (Manual) (1.4-6.5) K/uL Total Absolute Neuts (1.4-6.5) K/uL Total Abs Lymphocytes (1.2-3.4) K/uL Monocytes # (Manual) (0.11-0.59) K/uL ABG pH (7.35-7.45) ABG pCO2 (35-46) mmHg ABG pO2 (80-95) mmHg ABG HCO3 (19-24) mmol/L ABG O2 Saturation (90-95) % ABG Base Excess (-9-1.8) mEq/L Alexandr Test (Pos) Barometric Pressure mm/Hg Oxygen Given Sodium (136-145) mmol/L Potassium (3.5-5.1) mmol/L Chloride (98-107) mmol/L Carbon Dioxide (21-32) mmol/L Anion Gap (3-11) BUN (6-23) mg/dl Creatinine (0.6-1.2) mg/dl Est Cr Clr Drug Dosing ml/min Est GFR ( Amer) ml/min Est GFR (Non-Af Amer) ml/min BUN/Creatinine Ratio (10-20) Glucose (70-99(Fasting)) mg/dl POC Glucose 237 H (70-99) mg/dl Osmolality (280-300) mOsm/kg Calcium (8.5-10.1) mg/dl Phosphorus (2.5-4.9) mg/dl Magnesium (1.7-2.4) mg/dl Total Bilirubin (0.2-1.0) mg/dl AST (13-39) U/L ALT (7-52) U/L Alkaline Phosphatase (34-104) U/L Ammonia (18-72) umol/L Troponin I (0-0.04) ng/ml Total Protein (6.0-8.3) gm/dl Albumin (3.4-5.0) gm/dl Globulin (2.5-4.0) gm/dl Albumin/Globulin Ratio (0.9-2) Urine Osmolality (500-800) mOsm/kg Ur Random Sodium mmol/L Stl C. cayetanensis PCR (NotDetected) Stool Rotavirus A PCR (NotDetected) Stl Adenov F 40/41 PCR (NotDetected) Stool Astrovirus (PCR) (NotDetected) Stool Campylobacter PCR (NotDetected) Stl C.difficile Tox A&B (Negative) Stl C. diff Tox A/B PCR (NotDetected) Stool Cryptosporidium PCR (NotDetected) Stl E.coli Shiga Tox PCR (NotDetected) Stl Enterotoxigenic E PCR (NotDetected) Stool EPEC (PCR) (NotDetected) Stool EAEC (PCR) (NotDetected) Stl E. histolytica PCR (NotDetected) Stool Giardia Lamblia PCR (NotDetected) Stool Salmonella PCR (NotDetected) Stool Sapovirus (PCR) (NotDetected) Stl P. shigelloides PCR (NotDetected) Stl Shigella/EIEC PCR (NotDetected) St Y.enterocolitica PCR (NotDetected) Stool Vibrio (PCR) (NotDetected) Stl Vibrio cholerae PCR (NotDetected) Stl Norovirus GI/GII PCR (NotDetected) Diagnostic Findings HUSSEIN 11/16/2020 LVEF 55-60% LA appendage thrombus RV function moderately reduced with moderate dilation Echo 06/2019 The examination is adequate to evaluate the referral indication. Severe pulmonary hypertension is present. The estimated pulmonary artery systolic pressure is 76mm Hg. There is severe concentric increase in right ventricular wall thickness. There are one or more thin mobile densities attached to the aortic valve suggesting fibrous strands. 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 Aortic atherosclerosis is moderate. There is severe mitral annular calcification. Mild mitral stenosis is present. Significant mitral regurgitation is absent. The left ventricular cavity size is normal. The qualitative LV ejection fraction is 55-59% (normal). The left atrium is moderately enlarged. The right atrium is moderately enlarged.
--- NOTE | 2021-10-04 08:42 | Hospitalist Progress Note ---
Date of Service October 04, 2021 Assessment & Plan (1) Colitis: (2) UTI (urinary tract infection): (3) Abdominal pain: Plan: Fulminant C. Diff Pancolitis Developing Toxic megacolon Acute UTI: CTAP in ED 1. Interval development of diffuse mucosal thickening of the majority of the colon with exclusion of the rectum. Pericolonic inflammatory changes are present in the findings are characteristic of an infectious versus inflammatory colitis. 2. Normal-appearing small bowel. Pt was recently discharged on ATB for UTI, was having diarrhea for 3-4 days [employer] which stopped on the day of arrival Had pancolitis on CT abd/p on admission Was on empirical po vancomycin due to recent antibiotics use due to concern for c diff Initially had no BM after admission On 10/03/21, patient was noted to have abd distention, worsening leukocytosis and renal function. Repeat scan showed worsening pancolitis. BM on 10/03/21 confirmed c diff infection MS vancomycin (retention enema) and IV flagyl were added. Patient was transferred to PCU. Leukocytosis continue to worsen. Up to 50K today Worsening renal function and mental status Surgery on board. Plan for ex lap today Gave K centra to reverse home eliquis GI on board On IV rocephin for UTI Urine culture 09/27/21 + Klebsiella > 100k - continue IV rocephin Mild hyponatremia Acute on Chronic CKD 3 baseline cr ~ 1.4-1.6 Cr continue to increase. Now 3.17 today Lobby Porter consulted Continue IVF Continue culp for now. Had urinary retention prior to culp placement on 10/03/21 Atrial fibrillation: Diastolic CHF, chronic: Chronic cor pulmonale: Hypertension: AM cardizem and metoprolol were held due to mental status Cardiology consulted overnight due to wide complex tachy on EKG. Appreciate recommendations Chronic respiratory failure with hypoxia, on home oxygen therapy: Chronic obstructive pulmonary disease: Uses 2L chronically, smokes half pack per day x42 years Negative COVID on admission CXR today notes improvement of bibasilar atelectasis, small patchy moncho opacity which may relate to crowding of bronchovesicular markings. Will monitor and reeval DM type 2 (diabetes mellitus, type 2): Continue Lantus, novolog per protocol Glycemic pharm on board Hypothyroidism: Continue levothyroxine, DVt ppx: Eliquis on hold for OR PCP: Sulman Dispo: remains hospitalized, not medically stable DNR/DNI Granddaughter called and updated Admission and Anticipated Discharge Date Admission Date: October 01, 2021 Subjective 65-year-old female with hx of A. fib on Eliquis, chronic diastolic CHF, Hypertension, status post mitral valve repair in 2004, chronic cor pulmonale, chronic hyponatremia, COPD (current smoker, 1/2 PPD since 42 yrs), CKD stage III, hypothyroidism, history of DVT in left hand and left leg, DM type II, bipolar, depression, anxiety, COVID infection in September 2020 who presented on 10/01/21 with worsening lower belly pain and diarrhea for 3-4 days. Had pancolitis on CT abd/p on admission Was on empirical po vancomycin due to recent antibiotics use due to concern for c diff Initially had no BM after admission On 10/03/21, patient was noted to have abd distention, worsening leukocytosis and renal function. Repeat scan showed worsening pancolitis. BM on 10/03/21 confirmed c diff infection MS vancomycin and IV flagyl were added. Patient was transferred to PCU. Patient seen and examined this morning. Patient is ill looking, drowsy but arousable, oriented to person and place only Reports abd discomfort Other ROS limited due to mental status Physical Exam Constitutional: + ill appearing and + well hydrated; no acute distress Eyes: PERRL, conjunctivae normal, anicteric sclerae ENMT: external ear and nose normal, oropharynx normal Respiratory: Tachypnea, transmitted sounds, coarse breath sounds Cardiovascular: Rate/Rhythm: regular rhythm and + tachycardic S1 S2 Gastrointestinal (Abdomen): Abd is distended, soft, tender, +BS Musculoskeletal: No pedal edema Neurologic: Limited exam Drowsy but arousable. Oriented to person and place only Genitourinary: Culp in situ Results & Data Results & Data ([facility]) Vital Signs (Past 12 Hours) Vital Signs Temp Pulse Pulse Resp BP Pulse Ox 10/04/21 07:00 37.7 C H 94 H 14 132/75 92 10/03/21 23:07 36.7 C 98 H 20 149/83 H 93 10/03/21 22:59 103 H 10/03/21 22:39 101 H Laboratory Results Abnormal lab results 10/03/21 10/03/21 10/03/21 Range/Units 13:00 17:15 20:35 WBC (4.8-10.8) K/uL RBC (4.2-5.4) M/uL Hgb (12.0-16.0) g/dL Hct (37-47) % MPV (7.4-10.4) fL Absolute Nucleated RBC (0-0) K/uL Neutrophils # (Manual) (1.4-6.5) K/uL Total Absolute Neuts (1.4-6.5) K/uL Total Abs Lymphocytes (1.2-3.4) K/uL Monocytes # (Manual) (0.11-0.59) K/uL POC INR (0.9-1.1) ABG pCO2 (35-46) mmHg ABG pO2 (80-95) mmHg ABG HCO3 (19-24) mmol/L ABG O2 Saturation (90-95) % Sodium (136-145) mmol/L Potassium (3.5-5.1) mmol/L Carbon Dioxide (21-32) mmol/L Anion Gap (3-11) BUN (6-23) mg/dl Creatinine (0.6-1.2) mg/dl Glucose (70-99(Fasting)) mg/dl POC Glucose 187 H 164 H (70-99) mg/dl Alkaline Phosphatase (34-104) U/L Troponin I (0-0.04) ng/ml Albumin (3.4-5.0) gm/dl Urine Osmolality 341 L (500-800) mOsm/kg Stl C.difficile Tox A&B (Negative) Stl C. diff Tox A/B PCR (NotDetected) 10/03/21 10/03/21 10/04/21 Range/Units 23:13 Unknown 00:00 WBC (4.8-10.8) K/uL RBC (4.2-5.4) M/uL Hgb (12.0-16.0) g/dL Hct (37-47) % MPV (7.4-10.4) fL Absolute Nucleated RBC (0-0) K/uL Neutrophils # (Manual) (1.4-6.5) K/uL Total Absolute Neuts (1.4-6.5) K/uL Total Abs Lymphocytes (1.2-3.4) K/uL Monocytes # (Manual) (0.11-0.59) K/uL POC INR (0.9-1.1) ABG pCO2 (35-46) mmHg ABG pO2 (80-95) mmHg ABG HCO3 (19-24) mmol/L ABG O2 Saturation (90-95) % Sodium (136-145) mmol/L Potassium (3.5-5.1) mmol/L Carbon Dioxide (21-32) mmol/L Anion Gap (3-11) BUN (6-23) mg/dl Creatinine (0.6-1.2) mg/dl Glucose (70-99(Fasting)) mg/dl POC Glucose 177 H 197 H (70-99) mg/dl Alkaline Phosphatase (34-104) U/L Troponin I (0-0.04) ng/ml Albumin (3.4-5.0) gm/dl Urine Osmolality (500-800) mOsm/kg Stl C.difficile Tox A&B Positive Cdiff Toxin A* (Negative) Stl C. diff Tox A/B PCR C.diff Gene Detected A (NotDetected) 10/04/21 10/04/21 10/04/21 Range/Units 03:17 04:26 04:26 WBC 50.42 H* (4.8-10.8) K/uL RBC 5.62 H (4.2-5.4) M/uL Hgb 17.5 H (12.0-16.0) g/dL Hct 50.3 H (37-47) % MPV 10.5 H (7.4-10.4) fL Absolute Nucleated RBC 0.03 H (0-0) K/uL Neutrophils # (Manual) 48.20 H (1.4-6.5) K/uL Total Absolute Neuts 48.20 H (1.4-6.5) K/uL Total Abs Lymphocytes 0.00 L (1.2-3.4) K/uL Monocytes # (Manual) 2.22 H (0.11-0.59) K/uL POC INR (0.9-1.1) ABG pCO2 (35-46) mmHg ABG pO2 (80-95) mmHg ABG HCO3 (19-24) mmol/L ABG O2 Saturation (90-95) % Sodium 134 L (136-145) mmol/L Potassium 5.3 H (3.5-5.1) mmol/L Carbon Dioxide 17 L (21-32) mmol/L Anion Gap 17 H (3-11) BUN 57 H (6-23) mg/dl Creatinine 3.17 H D (0.6-1.2) mg/dl Glucose 190 H (70-99(Fasting)) mg/dl POC Glucose 190 H (70-99) mg/dl Alkaline Phosphatase 149 H (34-104) U/L Troponin I (0-0.04) ng/ml Albumin 2.8 L (3.4-5.0) gm/dl Urine Osmolality (500-800) mOsm/kg Stl C.difficile Tox A&B (Negative) Stl C. diff Tox A/B PCR (NotDetected) 10/04/21 10/04/21 10/04/21 Range/Units 04:26 07:26 07:39 WBC (4.8-10.8) K/uL RBC (4.2-5.4) M/uL Hgb (12.0-16.0) g/dL Hct (37-47) % MPV (7.4-10.4) fL Absolute Nucleated RBC (0-0) K/uL Neutrophils # (Manual) (1.4-6.5) K/uL Total Absolute Neuts (1.4-6.5) K/uL Total Abs Lymphocytes (1.2-3.4) K/uL Monocytes # (Manual) (0.11-0.59) K/uL POC INR (0.9-1.1) ABG pCO2 27 L (35-46) mmHg ABG pO2 57 L (80-95) mmHg ABG HCO3 17 L (19-24) mmol/L ABG O2 Saturation 88.8 L (90-95) % Sodium (136-145) mmol/L Potassium (3.5-5.1) mmol/L Carbon Dioxide (21-32) mmol/L Anion Gap (3-11) BUN (6-23) mg/dl Creatinine (0.6-1.2) mg/dl Glucose (70-99(Fasting)) mg/dl POC Glucose 167 H (70-99) mg/dl Alkaline Phosphatase (34-104) U/L Troponin I 0.36 H* (0-0.04) ng/ml Albumin (3.4-5.0) gm/dl Urine Osmolality (500-800) mOsm/kg Stl C.difficile Tox A&B (Negative) Stl C. diff Tox A/B PCR (NotDetected) 10/04/21 10/04/21 10/04/21 Range/Units 08:18 11:02 12:58 WBC (4.8-10.8) K/uL RBC (4.2-5.4) M/uL Hgb (12.0-16.0) g/dL Hct (37-47) % MPV (7.4-10.4) fL Absolute Nucleated RBC (0-0) K/uL Neutrophils # (Manual) (1.4-6.5) K/uL Total Absolute Neuts (1.4-6.5) K/uL Total Abs Lymphocytes (1.2-3.4) K/uL Monocytes # (Manual) (0.11-0.59) K/uL POC INR 2.9 H (0.9-1.1) ABG pCO2 (35-46) mmHg ABG pO2 (80-95) mmHg ABG HCO3 (19-24) mmol/L ABG O2 Saturation (90-95) % Sodium (136-145) mmol/L Potassium (3.5-5.1) mmol/L Carbon Dioxide (21-32) mmol/L Anion Gap (3-11) BUN (6-23) mg/dl Creatinine (0.6-1.2) mg/dl Glucose (70-99(Fasting)) mg/dl POC Glucose 145 H 202 H (70-99) mg/dl Alkaline Phosphatase (34-104) U/L Troponin I (0-0.04) ng/ml Albumin (3.4-5.0) gm/dl Urine Osmolality (500-800) mOsm/kg Stl C.difficile Tox A&B (Negative) Stl C. diff Tox A/B PCR (NotDetected) (1) UTI (urinary tract infection) Hematuria presence: without hematuria Urinary tract infection type: acute cystitis Qualified Code(s): N30.00 - Acute cystitis without hematuria (2) Abdominal pain Abdominal location: lower abdomen, unspecified Qualified Code(s): R10.30 - Lower abdominal pain, unspecified
--- NOTE | 2021-10-04 08:49 | Gastroenterology Progress Note ---
Date of Service October 04, 2021 Assessment & Plan (1) Abdominal pain: Plan: 65 year old female admitted w/ abd pain, diarrhea and foul smelling stools, history of recent PO and IV ABX use for urinary infections, here with rising WBC but normal lactic acid but CT w/ pancolitis. Clinical concern for c.diff started on PO vancomycin 10/02 Stool testing yesterday returned + for c.diff, repeat CT due to worsening abd distention w/ worsening colitis and colonic ileus, rising WBC, evaluated by surgery and recommended to start vanco enema 10/03 and IV flagyl 10/03 NPO Continue PO Vancomycin QID Continue Vancomycin enema QID Agree w/ IV Flagyl if patient able to tolerate Appreciate general surgery recommendations Avoid other antibiotics if possible Thank you for allowing us to participate in the care of this patient. Please call with any acute changes, questions or concerns. Please see addendum below with additional recommendation from my supervising physician. Admission and Anticipated Discharge Date Admission Date: October 01, 2021 Supervising Physician Co-Signing Physician Notes I have seen and examined the patient with KAYCE Larry whose note reflects our findings and plan. Severe C diff. Surgery involved. Subjective Pt was seen and evaluated, chart reviewed Empirically stated on Vancomycin in the ED given concern for c.diff. Yesterday, c.diff returned positive Worsening abd bloated lead to repeat CT which showed ileus She was started on Vancomycin enema and IV Flagyl, evaluated by surgery Today, she notes she has abdominal discomfort for the first time, persistent bloating. Has been short of breath, new, overnight. Review of Systems Review of Systems: All systems reviewed & are unremarkable except as noted in HPI & below Physical Exam Constitutional: + ill appearing; no acute distress Neck: trachea midline; no tracheal deviation Respiratory: + SOB with conversation Cardiovascular: Rate/Rhythm: + tachycardic Gastrointestinal (Abdomen): Inspection/Auscultation: + abdomen distended Percussion/Palpation: + abdomen tender; no guarding Skin: no rashes, warm and dry Results & Data ([facility]) Vital Signs (Past 12 Hours) Vital Signs Temp Pulse Pulse Resp BP Pulse Ox 10/04/21 07:00 37.7 C H 94 H 14 132/75 92 10/03/21 23:07 36.7 C 98 H 20 149/83 H 93 10/03/21 22:59 103 H 10/03/21 22:39 101 H Laboratory Results 10/04/21 10/04/21 10/04/21 Range/Units 08:18 07:39 07:26 WBC (4.8-10.8) K/uL RBC (4.2-5.4) M/uL Hgb (12.0-16.0) g/dL Hct (37-47) % MCV (80-100) fL MCH (25-34) pg MCHC (32-36) g/dL RDW Std Deviation (36.4-46.3) fL RDW Coeff of King (11.5-14.5) % Plt Count (130-400) K/uL MPV (7.4-10.4) fL Absolute Nucleated RBC (0-0) K/uL Nucleated RBC % (auto) % Neutrophils % (Manual) % Lymphocytes % (Manual) % Monocytes % (Manual) % Neutrophils # (Manual) (1.4-6.5) K/uL Total Absolute Neuts (1.4-6.5) K/uL Total Abs Lymphocytes (1.2-3.4) K/uL Monocytes # (Manual) (0.11-0.59) K/uL ABG pH (7.35-7.45) ABG pCO2 (35-46) mmHg ABG pO2 (80-95) mmHg ABG HCO3 (19-24) mmol/L ABG O2 Saturation (90-95) % ABG Base Excess (-9-1.8) mEq/L Alexandr Test (Pos) Barometric Pressure mm/Hg Oxygen Given Sodium (136-145) mmol/L Potassium (3.5-5.1) mmol/L Chloride (98-107) mmol/L Carbon Dioxide (21-32) mmol/L Anion Gap (3-11) BUN (6-23) mg/dl Creatinine (0.6-1.2) mg/dl Est Cr Clr Drug Dosing ml/min Est GFR ( Amer) ml/min Est GFR (Non-Af Amer) ml/min BUN/Creatinine Ratio (10-20) Glucose (70-99(Fasting)) mg/dl POC Glucose 145 H 167 H (70-99) mg/dl Osmolality (280-300) mOsm/kg Calcium (8.5-10.1) mg/dl Magnesium (1.7-2.4) mg/dl Total Bilirubin (0.2-1.0) mg/dl AST (13-39) U/L ALT (7-52) U/L Alkaline Phosphatase (34-104) U/L Ammonia (18-72) umol/L Troponin I 0.36 H* (0-0.04) ng/ml Total Protein (6.0-8.3) gm/dl Albumin (3.4-5.0) gm/dl Globulin (2.5-4.0) gm/dl Albumin/Globulin Ratio (0.9-2) Urine Osmolality (500-800) mOsm/kg Ur Random Sodium mmol/L Stl C. cayetanensis PCR (NotDetected) Stool Rotavirus A PCR (NotDetected) Stl Adenov F PCR (NotDetected) Stool Astrovirus (PCR) (NotDetected) Stool Campylobacter PCR (NotDetected) Stl C.difficile Tox A&B (Negative) Stl C. diff Tox A/B PCR (NotDetected) Stool Cryptosporidium PCR (NotDetected) Stl E.coli Shiga Tox PCR (NotDetected) Stl Enterotoxigenic E PCR (NotDetected) Stool EPEC (PCR) (NotDetected) Stool EAEC (PCR) (NotDetected) Stl E. histolytica PCR (NotDetected) Stool Giardia Lamblia PCR (NotDetected) Stool Salmonella PCR (NotDetected) Stool Sapovirus (PCR) (NotDetected) Stl P. shigelloides PCR (NotDetected) Stl Shigella/EIEC PCR (NotDetected) St Y.enterocolitica PCR (NotDetected) Stool Vibrio (PCR) (NotDetected) Stl Vibrio cholerae PCR (NotDetected) Stl Norovirus GI/GII PCR (NotDetected) 10/04/21 10/04/21 10/04/21 Range/Units 04:26 04:26 04:26 WBC (4.8-10.8) K/uL RBC (4.2-5.4) M/uL Hgb (12.0-16.0) g/dL Hct (37-47) % MCV (80-100) fL MCH (25-34) pg MCHC (32-36) g/dL RDW Std Deviation (36.4-46.3) fL RDW Coeff of King (11.5-14.5) % Plt Count (130-400) K/uL MPV (7.4-10.4) fL Absolute Nucleated RBC (0-0) K/uL Nucleated RBC % (auto) % Neutrophils % (Manual) % Lymphocytes % (Manual) % Monocytes % (Manual) % Neutrophils # (Manual) (1.4-6.5) K/uL Total Absolute Neuts (1.4-6.5) K/uL Total Abs Lymphocytes (1.2-3.4) K/uL Monocytes # (Manual) (0.11-0.59) K/uL ABG pH 7.41 (7.35-7.45) ABG pCO2 27 L (35-46) mmHg ABG pO2 57 L (80-95) mmHg ABG HCO3 17 L (19-24) mmol/L ABG O2 Saturation 88.8 L (90-95) % ABG Base Excess -5.8 (-9-1.8) mEq/L Alexandr Test POS (Pos) Barometric Pressure 732.7 mm/Hg Oxygen Given 4 L Sodium 134 L (136-145) mmol/L Potassium 5.3 H (3.5-5.1) mmol/L Chloride 100 (98-107) mmol/L Carbon Dioxide 17 L (21-32) mmol/L Anion Gap 17 H (3-11) BUN 57 H (6-23) mg/dl Creatinine 3.17 H D (0.6-1.2) mg/dl Est Cr Clr Drug Dosing 17.8 ml/min Est GFR ( Amer) 17.1 ml/min Est GFR (Non-Af Amer) 14.7 ml/min BUN/Creatinine Ratio 18.0 (10-20) Glucose 190 H (70-99(Fasting)) mg/dl POC Glucose (70-99) mg/dl Osmolality (280-300) mOsm/kg Calcium 8.5 (8.5-10.1) mg/dl Magnesium 2.3 (1.7-2.4) mg/dl Total Bilirubin 0.4 (0.2-1.0) mg/dl AST 34 (13-39) U/L ALT 21 (7-52) U/L Alkaline Phosphatase 149 H (34-104) U/L Ammonia 35.0 (18-72) umol/L Troponin I (0-0.04) ng/ml Total Protein 6.0 (6.0-8.3) gm/dl Albumin 2.8 L (3.4-5.0) gm/dl Globulin 3.2 (2.5-4.0) gm/dl Albumin/Globulin Ratio 0.9 (0.9-2) Urine Osmolality (500-800) mOsm/kg Ur Random Sodium mmol/L Stl C. cayetanensis PCR (NotDetected) Stool Rotavirus A PCR (NotDetected) Stl Adenov F 40/ PCR (NotDetected) Stool Astrovirus (PCR) (NotDetected) Stool Campylobacter PCR (NotDetected) Stl C.difficile Tox A&B (Negative) Stl C. diff Tox A/B PCR (NotDetected) Stool Cryptosporidium PCR (NotDetected) Stl E.coli Shiga Tox PCR (NotDetected) Stl Enterotoxigenic E PCR (NotDetected) Stool EPEC (PCR) (NotDetected) Stool EAEC (PCR) (NotDetected) Stl E. histolytica PCR (NotDetected) Stool Giardia Lamblia PCR (NotDetected) Stool Salmonella PCR (NotDetected) Stool Sapovirus (PCR) (NotDetected) Stl P. shigelloides PCR (NotDetected) Stl Shigella/EIEC PCR (NotDetected) St Y.enterocolitica PCR (NotDetected) Stool Vibrio (PCR) (NotDetected) Stl Vibrio cholerae PCR (NotDetected) Stl Norovirus GI/GII PCR (NotDetected) 10/04/21 10/04/21 10/04/21 Range/Units 04:26 03:17 00:00 WBC 50.42 H* (4.8-10.8) K/uL RBC 5.62 H (4.2-5.4) M/uL Hgb 17.5 H (12.0-16.0) g/dL Hct 50.3 H (37-47) % MCV 89.5 (80-100) fL MCH 31.1 (25-34) pg MCHC 34.8 (32-36) g/dL RDW Std Deviation 43.5 (36.4-46.3) fL RDW Coeff of King 13.1 (11.5-14.5) % Plt Count 368 (130-400) K/uL MPV 10.5 H (7.4-10.4) fL Absolute Nucleated RBC 0.03 H (0-0) K/uL Nucleated RBC % (auto) 0.1 % Neutrophils % (Manual) 95.6 % Lymphocytes % (Manual) 0.0 % Monocytes % (Manual) 4.4 % Neutrophils # (Manual) 48.20 H (1.4-6.5) K/uL Total Absolute Neuts 48.20 H (1.4-6.5) K/uL Total Abs Lymphocytes 0.00 L (1.2-3.4) K/uL Monocytes # (Manual) 2.22 H (0.11-0.59) K/uL ABG pH (7.35-7.45) ABG pCO2 (35-46) mmHg ABG pO2 (80-95) mmHg ABG HCO3 (19-24) mmol/L ABG O2 Saturation (90-95) % ABG Base Excess (-9-1.8) mEq/L Alexandr Test (Pos) Barometric Pressure mm/Hg Oxygen Given Sodium (136-145) mmol/L Potassium (3.5-5.1) mmol/L Chloride (98-107) mmol/L Carbon Dioxide (21-32) mmol/L Anion Gap (3-11) BUN (6-23) mg/dl Creatinine (0.6-1.2) mg/dl Est Cr Clr Drug Dosing ml/min Est GFR ( Amer) ml/min Est GFR (Non-Af Amer) ml/min BUN/Creatinine Ratio (10-20) Glucose (70-99(Fasting)) mg/dl POC Glucose 190 H 197 H (70-99) mg/dl Osmolality (280-300) mOsm/kg Calcium (8.5-10.1) mg/dl Magnesium (1.7-2.4) mg/dl Total Bilirubin (0.2-1.0) mg/dl AST (13-39) U/L ALT (7-52) U/L Alkaline Phosphatase (34-104) U/L Ammonia (18-72) umol/L Troponin I (0-0.04) ng/ml Total Protein (6.0-8.3) gm/dl Albumin (3.4-5.0) gm/dl Globulin (2.5-4.0) gm/dl Albumin/Globulin Ratio (0.9-2) Urine Osmolality (500-800) mOsm/kg Ur Random Sodium mmol/L Stl C. cayetanensis PCR (NotDetected) Stool Rotavirus A PCR (NotDetected) Stl Adenov F PCR (NotDetected) Stool Astrovirus (PCR) (NotDetected) Stool Campylobacter PCR (NotDetected) Stl C.difficile Tox A&B (Negative) Stl C. diff Tox A/B PCR (NotDetected) Stool Cryptosporidium PCR (NotDetected) Stl E.coli Shiga Tox PCR (NotDetected) Stl Enterotoxigenic E PCR (NotDetected) Stool EPEC (PCR) (NotDetected) Stool EAEC (PCR) (NotDetected) Stl E. histolytica PCR (NotDetected) Stool Giardia Lamblia PCR (NotDetected) Stool Salmonella PCR (NotDetected) Stool Sapovirus (PCR) (NotDetected) Stl P. shigelloides PCR (NotDetected) Stl Shigella/EIEC PCR (NotDetected) St Y.enterocolitica PCR (NotDetected) Stool Vibrio (PCR) (NotDetected) Stl Vibrio cholerae PCR (NotDetected) Stl Norovirus GI/GII PCR (NotDetected) 10/03/21 10/03/21 10/03/21 Range/Units Unknown 23:13 20:35 WBC (4.8-10.8) K/uL RBC (4.2-5.4) M/uL Hgb (12.0-16.0) g/dL Hct (37-47) % MCV (80-100) fL MCH (25-34) pg MCHC (32-36) g/dL RDW Std Deviation (36.4-46.3) fL RDW Coeff of King (11.5-14.5) % Plt Count (130-400) K/uL MPV (7.4-10.4) fL Absolute Nucleated RBC (0-0) K/uL Nucleated RBC % (auto) % Neutrophils % (Manual) % Lymphocytes % (Manual) % Monocytes % (Manual) % Neutrophils # (Manual) (1.4-6.5) K/uL Total Absolute Neuts (1.4-6.5) K/uL Total Abs Lymphocytes (1.2-3.4) K/uL Monocytes # (Manual) (0.11-0.59) K/uL ABG pH (7.35-7.45) ABG pCO2 (35-46) mmHg ABG pO2 (80-95) mmHg ABG HCO3 (19-24) mmol/L ABG O2 Saturation (90-95) % ABG Base Excess (-9-1.8) mEq/L Alexandr Test (Pos) Barometric Pressure mm/Hg Oxygen Given Sodium (136-145) mmol/L Potassium (3.5-5.1) mmol/L Chloride (98-107) mmol/L Carbon Dioxide (21-32) mmol/L Anion Gap (3-11) BUN (6-23) mg/dl Creatinine (0.6-1.2) mg/dl Est Cr Clr Drug Dosing ml/min Est GFR ( Amer) ml/min Est GFR (Non-Af Amer) ml/min BUN/Creatinine Ratio (10-20) Glucose (70-99(Fasting)) mg/dl POC Glucose 177 H 164 H (70-99) mg/dl Osmolality (280-300) mOsm/kg Calcium (8.5-10.1) mg/dl Magnesium (1.7-2.4) mg/dl Total Bilirubin (0.2-1.0) mg/dl AST (13-39) U/L ALT (7-52) U/L Alkaline Phosphatase (34-104) U/L Ammonia (18-72) umol/L Troponin I (0-0.04) ng/ml Total Protein (6.0-8.3) gm/dl Albumin (3.4-5.0) gm/dl Globulin (2.5-4.0) gm/dl Albumin/Globulin Ratio (0.9-2) Urine Osmolality (500-800) mOsm/kg Ur Random Sodium mmol/L Stl C. cayetanensis PCR Not Detected (NotDetected) Stool Rotavirus A PCR Not Detected (NotDetected) Stl Adenov F 40/41 PCR Not Detected (NotDetected) Stool Astrovirus (PCR) Not Detected (NotDetected) Stool Campylobacter PCR Not Detected (NotDetected) Stl C.difficile Tox A&B Positive Cdiff Toxin A* (Negative) Stl C. diff Tox A/B PCR C.diff Gene Detected A (NotDetected) Stool Cryptosporidium PCR Not Detected (NotDetected) Stl E.coli Shiga Tox PCR Not Detected (NotDetected) Stl Enterotoxigenic E PCR Not Detected (NotDetected) Stool EPEC (PCR) Not Detected (NotDetected) Stool EAEC (PCR) Not Detected (NotDetected) Stl E. histolytica PCR Not Detected (NotDetected) Stool Giardia Lamblia PCR Not Detected (NotDetected) Stool Salmonella PCR Not Detected (NotDetected) Stool Sapovirus (PCR) Not Detected (NotDetected) Stl P. shigelloides PCR Not Detected (NotDetected) Stl Shigella/EIEC PCR Not Detected (NotDetected) St Y.enterocolitica PCR Not Detected (NotDetected) Stool Vibrio (PCR) Not Detected (NotDetected) Stl Vibrio cholerae PCR Not Detected (NotDetected) Stl Norovirus GI/GII PCR Not Detected (NotDetected) 10/03/21 10/03/21 10/03/21 Range/Units 17:15 13:00 13:00 WBC (4.8-10.8) K/uL RBC (4.2-5.4) M/uL Hgb (12.0-16.0) g/dL Hct (37-47) % MCV (80-100) fL MCH (25-34) pg MCHC (32-36) g/dL RDW Std Deviation (36.4-46.3) fL RDW Coeff of King (11.5-14.5) % Plt Count (130-400) K/uL MPV (7.4-10.4) fL Absolute Nucleated RBC (0-0) K/uL Nucleated RBC % (auto) % Neutrophils % (Manual) % Lymphocytes % (Manual) % Monocytes % (Manual) % Neutrophils # (Manual) (1.4-6.5) K/uL Total Absolute Neuts (1.4-6.5) K/uL Total Abs Lymphocytes (1.2-3.4) K/uL Monocytes # (Manual) (0.11-0.59) K/uL ABG pH (7.35-7.45) ABG pCO2 (35-46) mmHg ABG pO2 (80-95) mmHg ABG HCO3 (19-24) mmol/L ABG O2 Saturation (90-95) % ABG Base Excess (-9-1.8) mEq/L Alexandr Test (Pos) Barometric Pressure mm/Hg Oxygen Given Sodium (136-145) mmol/L Potassium (3.5-5.1) mmol/L Chloride (98-107) mmol/L Carbon Dioxide (21-32) mmol/L Anion Gap (3-11) BUN (6-23) mg/dl Creatinine (0.6-1.2) mg/dl Est Cr Clr Drug Dosing ml/min Est GFR ( Amer) ml/min Est GFR (Non-Af Amer) ml/min BUN/Creatinine Ratio (10-20) Glucose (70-99(Fasting)) mg/dl POC Glucose 187 H (70-99) mg/dl Osmolality (280-300) mOsm/kg Calcium (8.5-10.1) mg/dl Magnesium (1.7-2.4) mg/dl Total Bilirubin (0.2-1.0) mg/dl AST (13-39) U/L ALT (7-52) U/L Alkaline Phosphatase (34-104) U/L Ammonia (18-72) umol/L Troponin I (0-0.04) ng/ml Total Protein (6.0-8.3) gm/dl Albumin (3.4-5.0) gm/dl Globulin (2.5-4.0) gm/dl Albumin/Globulin Ratio (0.9-2) Urine Osmolality 341 L (500-800) mOsm/kg Ur Random Sodium < 10 mmol/L Stl C. cayetanensis PCR (NotDetected) Stool Rotavirus A PCR (NotDetected) Stl Adenov F 40/ PCR (NotDetected) Stool Astrovirus (PCR) (NotDetected) Stool Campylobacter PCR (NotDetected) Stl C.difficile Tox A&B (Negative) Stl C. diff Tox A/B PCR (NotDetected) Stool Cryptosporidium PCR (NotDetected) Stl E.coli Shiga Tox PCR (NotDetected) Stl Enterotoxigenic E PCR (NotDetected) Stool EPEC (PCR) (NotDetected) Stool EAEC (PCR) (NotDetected) Stl E. histolytica PCR (NotDetected) Stool Giardia Lamblia PCR (NotDetected) Stool Salmonella PCR (NotDetected) Stool Sapovirus (PCR) (NotDetected) Stl P. shigelloides PCR (NotDetected) Stl Shigella/EIEC PCR (NotDetected) St Y.enterocolitica PCR (NotDetected) Stool Vibrio (PCR) (NotDetected) Stl Vibrio cholerae PCR (NotDetected) Stl Norovirus GI/GII PCR (NotDetected) 10/03/21 10/03/21 10/01/21 Range/Units 12:29 12:04 19:57 WBC (4.8-10.8) K/uL RBC (4.2-5.4) M/uL Hgb (12.0-16.0) g/dL Hct (37-47) % MCV (80-100) fL MCH (25-34) pg MCHC (32-36) g/dL RDW Std Deviation (36.4-46.3) fL RDW Coeff of King (11.5-14.5) % Plt Count (130-400) K/uL MPV (7.4-10.4) fL Absolute Nucleated RBC (0-0) K/uL Nucleated RBC % (auto) % Neutrophils % (Manual) % Lymphocytes % (Manual) % Monocytes % (Manual) % Neutrophils # (Manual) (1.4-6.5) K/uL Total Absolute Neuts (1.4-6.5) K/uL Total Abs Lymphocytes (1.2-3.4) K/uL Monocytes # (Manual) (0.11-0.59) K/uL ABG pH (7.35-7.45) ABG pCO2 (35-46) mmHg ABG pO2 (80-95) mmHg ABG HCO3 (19-24) mmol/L ABG O2 Saturation (90-95) % ABG Base Excess (-9-1.8) mEq/L Alexandr Test (Pos) Barometric Pressure mm/Hg Oxygen Given Sodium (136-145) mmol/L Potassium (3.5-5.1) mmol/L Chloride (98-107) mmol/L Carbon Dioxide (21-32) mmol/L Anion Gap (3-11) BUN (6-23) mg/dl Creatinine (0.6-1.2) mg/dl Est Cr Clr Drug Dosing ml/min Est GFR ( Amer) ml/min Est GFR (Non-Af Amer) ml/min BUN/Creatinine Ratio (10-20) Glucose (70-99(Fasting)) mg/dl POC Glucose 194 H 237 H (70-99) mg/dl Osmolality 289 (280-300) mOsm/kg Calcium (8.5-10.1) mg/dl Magnesium (1.7-2.4) mg/dl Total Bilirubin (0.2-1.0) mg/dl AST (13-39) U/L ALT (7-52) U/L Alkaline Phosphatase (34-104) U/L Ammonia (18-72) umol/L Troponin I (0-0.04) ng/ml Total Protein (6.0-8.3) gm/dl Albumin (3.4-5.0) gm/dl Globulin (2.5-4.0) gm/dl Albumin/Globulin Ratio (0.9-2) Urine Osmolality (500-800) mOsm/kg Ur Random Sodium mmol/L Stl C. cayetanensis PCR (NotDetected) Stool Rotavirus A PCR (NotDetected) Stl Adenov F 40/41 PCR (NotDetected) Stool Astrovirus (PCR) (NotDetected) Stool Campylobacter PCR (NotDetected) Stl C.difficile Tox A&B (Negative) Stl C. diff Tox A/B PCR (NotDetected) Stool Cryptosporidium PCR (NotDetected) Stl E.coli Shiga Tox PCR (NotDetected) Stl Enterotoxigenic E PCR (NotDetected) Stool EPEC (PCR) (NotDetected) Stool EAEC (PCR) (NotDetected) Stl E. histolytica PCR (NotDetected) Stool Giardia Lamblia PCR (NotDetected) Stool Salmonella PCR (NotDetected) Stool Sapovirus (PCR) (NotDetected) Stl P. shigelloides PCR (NotDetected) Stl Shigella/EIEC PCR (NotDetected) St Y.enterocolitica PCR (NotDetected) Stool Vibrio (PCR) (NotDetected) Stl Vibrio cholerae PCR (NotDetected) Stl Norovirus GI/GII PCR (NotDetected) (1) Abdominal pain Abdominal location: lower abdomen, unspecified Qualified Code(s): R10.30 - Lower abdominal pain, unspecified
--- NOTE | 2021-10-04 09:02 | XRay Report ---
XR chest 1V portable CLINICAL HISTORY: Tachypnea. Follow-up bibasilar atelectasis. COMPARISON STUDY: 10/03/2021 TECHNIQUE: 1 view of the chest FINDINGS: Single frontal view of the chest demonstrates the heart to again be enlarged status post previous nicholas ve replacement. Permanent cardiac pacer is again seen. There has been continued decrease in bibasilar atelectasis. However, there is a small alveolar opacity at the right lung base which may relate to c rowding of the bronchovascular markings. Again, follow-up PA and lateral radiographs would be helpful for further evaluation. There is no evidence for pleural effusion. There is no evidence for vascular congestion. There is no acute osseous pathology. IMPRESSION: While there has been interval improvement in bibasilar atelectasis. There is a small patc hy alveolar opacity at the right lung base with follow-up recommended above. ACT 112: Negative or not required by law. Electronically signed by: Gonsalo Rehman M.D. 10/04/2021 9:01 AM
[2021-10-04] MEDS: CHOLECALCIFEROL 1,000 UNITS 25 MCG TAB PO SCH (10:54)
[2021-10-04] MEDS: ASPIRIN 81 MG ECTAB PO SCH (10:54)
--- NOTE | 2021-10-04 10:54 | Anesthesiology Consultation ---
Date of Service October 04, 2021 Assessment & Plan Chart Review Chart Review: Acceptable Risk for Surgery and Patient NOT seen in Pre Admission Testing Consults Requested none History Surgery Operation Date: 10/04/21 08:20 Proposed Procedures p Exploratory Laparotomy Possible Bowel Resection - Wil Ness, Height/Weight Height: 5 ft 4 in Weight: 75 kg Allergies Allergy/AdvReac Type Severity Reaction Status Date / Time bee venom protein (honey bee) Allergy Severe Anaphylaxis Verified 10/01/21 13:56 lisinopril Allergy Severe ANGIOEDEMA, Verified 10/01/21 13:56 FACIAL CELLULITIS, RASH strawberry Allergy Severe LIPS, Verified 10/01/21 13:56 TONGUE, FACE SWELLS alprazolam Allergy Intermediate RED FACE, Verified 10/01/21 13:56 FACE SWELLING alendronate sodium Allergy Unknown ON [facility] MED Verified 10/01/21 13:56 LIST colesevelam AdvReac Intermediate Abdominal Verified 10/01/21 13:56 Pain lactose AdvReac Intermediate VOMTING Verified 10/01/21 13:56 DIARRHEA ABDOMINAL PAIN-LACTOSE INTOLERANCE lithium AdvReac Intermediate jitters Verified 10/01/21 13:56 metronidazole AdvReac Intermediate ABD PAIN, Verified 10/01/21 13:56 WEAKNESS, NAUSEA, VOMITING prednisone AdvReac Mild AGGRESSIVE Verified 10/01/21 13:56 BEHAVIOR Medications Home Medications Medication Instructions Recorded Confirmed Last Taken atorvastatin 40 mg tablet 40 mg PO HS 06/19/18 10/01/21 09/30/21 cetirizine 10 mg tablet 10 mg PO HS 06/19/18 10/01/21 09/30/21 cholecalciferol (vitamin D3) 25 1,000 unit PO QAM 06/19/18 10/01/21 10/01/21 mcg (1,000 unit) tablet (Vitamin D3) docusate sodium 100 mg tablet 100 mg PO BID PRN 06/19/18 10/01/21 01/19/21 08:00 epinephrine 0.3 mg/0.3 mL 0.3 mg IM DIRECTED PRN 06/19/18 10/01/21 06/28/18 injection, auto-injector (EpiPen) fentanyl 50 mcg/hr transdermal 50 mcg TRANSDERMAL [id number] 06/19/18 10/01/21 07/31/21 patch methocarbamol 750 mg tablet 750 mg PO TID 06/19/18 10/01/21 10/01/21 08:00 multivitamin 1 tab PO QAM 06/19/18 10/01/21 10/01/21 ondansetron 8 mg disintegrating 8 mg PO BID PRN 06/19/18 10/01/21 08/01/21 20:00 tablet tiotropium bromide 18 mcg capsule 1 cap INHALATION QAM 06/19/18 10/01/21 10/01/21 with inhalation device (Spiriva with HandiHaler) venlafaxine 150 mg 150 mg PO QAM 06/19/18 10/01/21 10/01/21 capsule,extended release 24 hr trazodone 100 mg tablet 200 mg PO HS 09/14/18 10/01/21 09/30/21 venlafaxine 75 mg capsule,extended 75 mg PO QAM 09/14/18 10/01/21 10/01/21 release 24 hr zolpidem 5 mg tablet 5 mg PO HS 09/14/18 10/01/21 09/30/21 gabapentin 800 mg tablet 800 mg PO BID 05/28/19 10/01/21 10/01/21 08:00 insulin glargine 100 unit/mL 18 unit SUBCUT BID 03/02/20 10/01/21 10/01/21 08:00 subcutaneous solution (Lantus U-100 Insulin) potassium chloride 10 mEq 10 meq PO TID 03/02/20 10/01/21 10/01/21 08:00 tablet,extended release levalbuterol HCl 1.25 mg/3 mL 1.25 mg INHALATION Q4H PRN 03/24/20 10/01/21 08/01/21 07:00 solution for nebulization nitroglycerin 0.4 mg sublingual 0.4 mg SUBLINGUAL DIRECTED PRN 07/02/20 10/01/21 07/02/20 tablet (Nitrostat) fluticasone 250 mcg-salmeterol 50 1 inh INHALATION BID 08/01/20 10/01/21 10/01/21 08:00 mcg/dose blistr powdr for inhalation (Advair Diskus) calcitriol 0.25 mcg capsule 0.25 mcg PO 3XWK 10/21/20 10/01/21 10/01/21 Al hyd-Mg tr-alg ac-sod bicarb 80 1 tab PO TID PRN 11/08/20 10/01/21 Unknown mg-14.2 mg chewable tablet (Gaviscon) acetaminophen 500 mg tablet 500 mg PO Q6H PRN 11/08/20 10/01/21 Unknown furosemide 40 mg tablet 80 mg PO BID 11/08/20 10/01/21 10/01/21 08:00 melatonin 10 mg tablet 10 mg PO HS 11/08/20 10/01/21 09/30/21 metoprolol succinate 100 mg 100 mg PO BID 11/08/20 10/01/21 10/01/21 08:00 tablet,extended release 24 hr pantoprazole 40 mg tablet,delayed 40 mg PO BID 11/08/20 10/01/21 10/01/21 08:00 release polyethylene glycol 3350 17 17 g PO DAILY PRN 11/08/20 10/01/21 01/19/21 gram/dose oral powder digoxin 125 mcg (0.125 mg) tablet 125 mcg PO 3XWK 01/04/21 10/01/21 10/01/21 diltiazem HCl 240 mg 240 mg PO BID 01/04/21 10/01/21 10/01/21 08:00 capsule,extended release 24 hr levalbuterol tartrate 45 1 puff INHALATION Q4H PRN 01/04/21 10/01/21 08/01/21 20:00 mcg/actuation aerosol inhaler (Xopenex HFA) apixaban 5 mg tablet (Eliquis) 5 mg PO BID 02/05/21 10/01/21 10/01/21 07:00 aspirin 81 mg tablet,delayed 81 mg PO QAM #30 tab 02/20/21 10/01/21 10/01/21 release amitriptyline 25 mg tablet 25 mg PO HS 03/21/21 10/01/21 09/30/21 guaifenesin 600 mg tablet, 600 mg PO BID 03/21/21 10/01/21 10/01/21 08:00 extended release 12 hr (Mucinex) mometasone 50 mcg/actuation nasal 2 spray INTRANASAL QPM 03/21/21 10/01/21 09/30/21 spray oxycodone 5 mg tablet 5 mg PO Q6H PRN 08/09/21 10/01/21 Unknown cefdinir 300 mg capsule 300 mg PO BID 7 Days #14 cap 09/27/21 10/01/21 10/01/21 08:00 Active Medications Generic Name Dose Route Start Last Admin Trade Name Dragan PRN Reason Stop Dose Admin Amitriptyline HCl 25 mg 10/01/21 21:00 10/03/21 20:44 Amitriptyline Hcl 25 Mg Tab PO 10/31/21 20:59 25 mg HS JORGE Administration Apixaban 5 mg 10/01/21 21:00 10/03/21 20:43 Apixaban 5 Mg Tablet PO 10/31/21 20:59 5 mg BID JORGE Administration Aspirin 81 mg 10/02/21 09:00 10/03/21 08:35 Aspirin 81 Mg Ectab PO 11/01/21 08:59 81 mg QAM JORGE Administration Atorvastatin Calcium 40 mg 10/01/21 21:00 10/03/21 20:45 Atorvastatin 40 Mg Tab PO 10/31/21 20:59 40 mg HS JORGE Administration Calcitriol 0.25 mcg 10/03/21 09:00 10/03/21 08:36 Calcitriol 0.25 Mcg Capsule PO 11/02/21 08:59 0.25 mcg [id number]@[id number] JORGE Administration Cetirizine HCl 10 mg 10/01/21 21:00 10/03/21 20:44 Cetirizine Hcl 10 Mg Tablet PO 10/31/21 20:59 10 mg HS JORGE Administration Digoxin 0.125 mg 10/03/21 16:00 10/03/21 16:30 Digoxin 0.125 Mg Tab PO 11/02/21 15:59 0.125 mg [id number]@1600 JORGE Administration Diltiazem HCl 240 mg 10/01/21 21:00 10/03/21 20:43 Diltiazem Hcl 240 Mg Capcr PO 10/31/21 20:59 240 mg BID JORGE Administration Fentanyl 50 mcg 10/01/21 21:30 10/01/21 22:35 Fentanyl 50 Mcg/Hr Tdsy TD 10/15/21 21:29 50 mcg Q3D@2130 JORGE Administration Fluticasone Propionate 2 sprays 10/02/21 21:00 10/03/21 20:49 Fluticasone Propionate Na Spr 16 Gm Btl NA 11/01/21 20:59 2 sprays QPM JORGE Administration Protocol Fluticasone/Vilanterol 1 puffs 10/02/21 09:00 10/03/21 08:32 Fluticasone/Vilanterol 200/25mcg 14 Puffs/Inhaler INH 11/01/21 08:59 1 puffs DAILY JORGE Administration Protocol Furosemide 80 mg 10/01/21 21:00 10/02/21 09:00 Furosemide 80 Mg Tab PO 10/31/21 20:59 80 mg BID JORGE Administration Gabapentin 800 mg 10/01/21 21:00 10/03/21 20:44 Gabapentin 800 Mg Tab PO 10/31/21 20:59 800 mg BID JORGE Administration Guaifenesin 600 mg 10/01/21 21:00 10/03/21 20:43 Guaifenesin 600 Mg Tabcr PO 10/31/21 20:59 600 mg BID JORGE Administration Ceftriaxone Sodium 1,000 mg/ 50 mls @ 100 mls/hr 10/02/21 18:00 10/03/21 18:04 Dextrose IV 10/11/21 17:59 Infused DAILY@1800 JORGE Infusion Protocol Lactated Ringer's 1,000 mls @ 80 mls/hr 10/03/21 14:30 10/04/21 06:04 Lr IV 11/02/21 14:29 Infused .[id number] JORGE Infusion Metronidazole 500 mg in 100 mls @ 100 mls/hr 10/03/21 15:00 10/04/21 08:19 Flagyl IV 10/13/21 14:59 100 mls/hr Q8H JORGE Administration Sodium Chloride 1,000 mls @ 75 mls/hr 10/04/21 05:30 10/04/21 05:59 Nss 1000ml IV 11/03/21 05:29 75 mls/hr .[id number] JORGE Administration Insulin Aspart 0 units 10/02/21 16:30 10/04/21 08:27 Insulin Aspart Per Unit SC 11/01/21 00:00 1 units ACHS JORGE Administration Insulin Glargine 5 units 10/02/21 09:00 10/04/21 08:26 Insulin Glargine Solostar 100 Units/Ml 3 Ml Pen SC 11/01/21 08:59 5 units BID JORGE Administration Melatonin 10 mg 10/01/21 21:00 10/02/21 20:56 Melatonin 3 Mg Tab PO 10/31/21 20:59 Not Given HS JORGE Methocarbamol 750 mg 10/01/21 21:00 10/03/21 20:42 Methocarbamol 750 Mg Tablet PO 10/31/21 20:59 750 mg TID JORGE Administration Metoprolol Succinate 100 mg 10/01/21 21:00 10/03/21 20:44 Metoprolol Succ 50mg Ext Rel Tab PO 10/31/21 20:59 100 mg BID JORGE Administration Miscellaneous 1 ea 10/01/21 21:29 10/01/21 22:24 Fentanyl Patch Remove & Waste N/A 10/31/21 21:28 1 ea Q3D JORGE Administration Miscellaneous 1 ea 10/02/21 00:00 10/04/21 08:00 Check Fentanyl Patch Placement N/A 11/01/21 00:00 1 ea QS JORGE Administration Miscellaneous 1 ea 10/02/21 08:59 10/04/21 08:06 Remove Nicoderm Patch N/A 11/01/21 08:58 1 ea DAILY@0859 JORGE Administration Multivitamins 1 tab 10/02/21 09:00 10/03/21 08:36 Multivitamin Tab PO 11/01/21 08:59 1 tab QAM JORGE Administration Nicotine 21 mg 10/02/21 09:00 10/04/21 08:05 Nicotine 21 Mg/24 Hr Tdsy TD 11/01/21 08:59 21 mg QAM JORGE Administration Ondansetron HCl 8 mg 10/01/21 20:23 10/03/21 08:32 Ondansetron 8mg Od Tab PO 10/31/21 20:22 8 mg BID PRN Administration Nausea Oxycodone HCl 5 mg 10/01/21 20:23 10/03/21 05:52 Oxycodone Hcl Ir 5 Mg Tab (Immediate Release) PO 10/15/21 20:22 5 mg Q6H PRN Administration Pain Pantoprazole Sodium 40 mg 10/01/21 21:00 10/03/21 20:44 Pantoprazole 40 Mg Tab PO 10/31/21 20:59 40 mg BID JORGE Administration Potassium Chloride 10 meq 10/01/21 21:00 10/03/21 20:41 Potassium Chloride 10 Meq Tabcr PO 10/31/21 20:59 10 meq TID JORGE Administration Raspberry 5 ml 10/02/21 00:00 10/04/21 06:00 Raspberry Syrup 5 Ml Udp PO 10/12/21 00:00 5 ml Q6 JORGE Administration Saccharomyces Boulardii 250 mg 10/02/21 09:00 10/03/21 08:35 Saccharomyces Boulardii 250 Mg Cap PO 11/01/21 08:59 250 mg DAILY JORGE Administration Trazodone HCl 200 mg 10/01/21 21:00 10/02/21 20:56 Trazodone Hcl 100 Mg Tab PO 10/31/21 20:59 Not Given HS JORGE Umeclidinium Jackson 1 puffs 10/02/21 09:00 10/03/21 08:31 Umeclidinium Jackson 62.5mcg/Blister 7 Puffs/Inhaler INH 11/01/21 08:59 1 puffs QAM JORGE Administration Protocol Vancomycin HCl 125 mg 10/02/21 00:00 10/04/21 06:00 Vancomycin Hcl 125 Mg/2.5ml Soln PO 10/12/21 00:00 125 mg Q6 JORGE Administration Vancomycin HCl 500 mg 10/03/21 15:00 10/04/21 06:39 Vancomycin Hcl 500 Mg/100 Ml Enema DE 10/13/21 14:59 500 mg Q6H JORGE Administration Vitamin D 1,000 units 10/02/21 09:00 10/03/21 08:36 Cholecalciferol 1,000 Units 25 Mcg Tab PO 11/01/21 08:59 1,000 units QAM JORGE Administration Zolpidem Tartrate 5 mg 10/01/21 21:00 10/02/21 20:57 Zolpidem Tartrate 5 Mg Tab PO 10/31/21 20:59 Not Given HS JORGE Past Medical History Medical History Anxiety Asthma 2LPM via n/c mostly continuous (although patient states she does not wear this all the time) Atrial fibrillation A fib/a. flutter s/p cardioversion and ablation (2016); s/p pacer (March 2021)/ follows with Javan Maravilla Atrial flutter Follows Javan Maravilla Lynn esophagus Bipolar disorder Chronic back pain Chronic cor pulmonale Chronic right HR Chronic hyponatremia Chronic obstructive pulmonary disease 2LPM via n/c mostly continuous (although patient states she does not wear this all the time) sees Dr. Vickers Chronic pain Chronic respiratory failure with hypoxia, on home oxygen therapy CKD (chronic kidney disease), stage III CVA (cerebral vascular accident) 2004 (per records; patient denies) Depression Diastolic CHF, chronic DM type 2 (diabetes mellitus, type 2) Fibromyalgia Sinclair catheter in place follows with Tahira Tran Gastroparesis GERD (gastroesophageal reflux disease) History of COVID-19 + 10/11/20; fatigue, congestion; resolved. +02/2021 at [facility]. No current problems. History of DVT (deep vein thrombosis) Left "hand" 2004- on AC HTN (hypertension) Hyperlipidemia Hypothyroidism No current medication per doctor orders. 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 Vickers Severe obstructive sleep apnea CPAP Past Family History Family History Mother Family history of diabetes mellitus Sister Family history of diabetes mellitus Ulcerative colitis Past Surgical History Surgical History History of adenoidectomy History of appendectomy LAPAROSCOPY History of cardiac cath 2004= no stents History of cardioversion History of carpal tunnel release left History of cataract surgery BILATERAL History of cholecystectomy LAPAROSCOPY History of colonoscopy History of esophagogastroduodenoscopy (EGD) History of hysterectomy EMIGDIO WITH BSO History of mitral valve repair 2004 + resection fibroelastoma History of tonsillectomy Hx of lumpectomy right breast BENIGN Hx of tubal ligation Hx of umbilical hernia repair S/P epidural steroid injection S/P placement of cardiac pacemaker 03/2021; rapid HR; sees Javan Maravilla; unsure of brand; last check 06/27/21 S/P trigger finger release RIGHT/LEFT Social History Smoking Status: Current every day smoker tobacco type: cigarettes Smoking cigarettes per day: 10 cigs per day Hx Alcohol Use: No alcohol intake frequency: 0-2 drinks per day Hx Substance Use: No substance use type: does not use Last Used Substance Other:: daily Physical Exam Vital Signs Last Vital Signs Temp 99.9 F H 10/04/21 07:00 Pulse 94 H 10/04/21 07:00 Resp 14 10/04/21 07:00 BP 132/75 10/04/21 07:00 Pulse Ox 92 10/04/21 07:00 Testing Laboratory Results 10/04/21 04:26 10/04/21 04:26 Hemoglobin A1c 8.0 % (4.5-5.6) H 10/02/21 06:42 Urine Color Dark Yellow 10/01/21 Unknown Urine Appearance Clear (Clear) 10/01/21 Unknown Urine pH 5.0 (4.5-7.5) 10/01/21 Unknown Ur Specific [place] 1.007 (1.000-1.030) 10/01/21 Unknown Urine Protein Trace (Negative) H 10/01/21 Unknown Urine Glucose (UA) Negative (Negative) 10/01/21 Unknown Urine Ketones Negative (Negative) 10/01/21 Unknown Urine Nitrite Positive (Negative) A 10/01/21 Unknown Ur Leukocyte Esterase Trace (Negative) H 10/01/21 Unknown Urine WBC (Auto) 1-5 /hpf (0-5) 10/01/21 Unknown Urine RBC (Auto) 0-4 /hpf (0-4) 10/01/21 Unknown U Hyaline Cast (Auto) 1-5 /lpf (0-5) 10/01/21 Unknown U Epithel Cells (Auto) >30 /lpf (0-5) H 10/01/21 Unknown Urine Bacteria (Auto) Negative (Negative) 10/01/21 Unknown 10/01/21 13:44 Aerobic Blood Culture - Preliminary Blood No growth in Aerobic bottle after 48 hours. Anaerobic Blood Culture - Preliminary No growth in Anaerobic bottle after 48 hours. 10/01/21 13:03 Aerobic Blood Culture - Preliminary Blood No growth in Aerobic bottle after 48 hours. Anaerobic Blood Culture - Preliminary No growth in Anaerobic bottle after 48 hours. 10/04/21 10/04/21 10/04/21 08:18 07:26 03:17 POC Glucose 145 H 167 H 190 H 10/04/21 10/03/21 00:00 23:13 POC Glucose 197 H 177 H Electrocardiogram Date: 10/04/21 Findings: + RBBB (bifascicular block) Chest X-Ray Date: 10/04/21 While there has been interval improvement in bibasilar atelectasis. There is a small patchy alveolar opacity at the right lung base with follow-up recommended above. Echocardiogram Date: 07/02/20 EF: 65-70 Other Findings: + LVH
[2021-10-04] MEDS: METHOCARBAMOL 750 MG TABLET PO SCH ×2 (10:55→16:21)
[2021-10-04] MEDS: dilTIAZem HCL 240 MG CAPCR PO SCH ×2 (10:55→20:17)
[2021-10-04] MEDS: GABAPENTIN 800 MG TAB PO SCH (10:55)
[2021-10-04] MEDS: FLUTICASONE/VILANTEROL 200/25MCG 14 PUFFS/INHALER INH SCH (10:55)
[2021-10-04] MEDS: guaiFENesin 600 MG TABCR PO SCH (10:55)
[2021-10-04] MEDS: METOPROLOL SUCC 50MG EXT REL TAB PO SCH ×2 (10:55→20:19)
[2021-10-04] MEDS: MULTIVITAMIN TAB PO SCH (10:56)
[2021-10-04] MEDS: SACCHAROMYCES BOULARDII 250 MG CAP PO SCH (10:56)
[2021-10-04] MEDS: PANTOprazole 40 MG TAB PO SCH (10:56)
[2021-10-04] MEDS: POTASSIUM CHLORIDE 10 MEQ TABCR PO SCH ×2 (10:56→16:21)
[2021-10-04] MEDS: UMECLIDINIUM BROMIDE 62.5MCG/BLISTER 7 PUFFS/INHALER INH SCH (10:56)
[2021-10-04] MEDS ORDERED: NEOSTIGMINE METHYLSULFATE 1 MG/ML 10ML VIAL ONE (11:21)
[2021-10-04] MEDS ORDERED: GLYCOPYRROLATE 0.2 MG/ML VIAL ONE ×2 (11:21)
[2021-10-04] MEDS ORDERED: fentaNYL citrate 100 MCG/2 ML VIAL ONE (11:21)
[2021-10-04] MEDS ORDERED: LIDOCAINE 2% 2 ML VIAL/AMP(20MG/ML) INFIL ONE (11:21)
[2021-10-04] MEDS ORDERED: PROPOFOL IV EMULSION 10 MG/ML 20 ML VIAL IV ONE (11:21)
[2021-10-04] MEDS ORDERED: ONDANSETRON INJ 2 MG/ML 2 ML VIAL ONE (11:21)
[2021-10-04] MEDS ORDERED: ROCURONIUM BROMIDE 10 MG/ML 5 ML VIAL IV ONE (11:21)
[2021-10-04] MEDS ORDERED: ACETAMINOPHEN 1000 MG/100 ML IV IV ONE (11:38)
[2021-10-04] MEDS ORDERED: BUPIVACAINE LIPOSOME 1.3% 266 MG/20 ML VIAL ONE (11:47)
[2021-10-04] MEDS ORDERED: KETAMINE 50 MG/5 ML SYRINGE ONE (11:48)
[2021-10-04] MEDS ORDERED: BUPIVACAINE 0.5 % 5 MG/1 ML PF 10ML VIAL ONE (11:49)
[2021-10-04] MEDS ORDERED: EPINEPHrine INJ 1 MG/ML AMP IM PRN (12:00)
--- NOTE | 2021-10-04 12:11 | Surgery Progress Note ---
Date of Service October 04, 2021 Assessment & Plan (1) C. difficile colitis: Plan: Patient with worsening leukocytosis and acute renal failure while on maximal medical therapy for her C. difficile colitis We will plan to take the patient today for exploratory laparotomy, subtotal colectomy with end ileostomy creation Consent was obtained by her grandson Tato who is POA Risks discussed including bleeding, infection, need for further surgery, injury to surrounding structures Was also discussed that she may need prolonged mechanical ventilation after the surgery due to her multiple medical problems including home O2 dependent COPD and heart failure Admission and Anticipated Discharge Date Admission Date: October 01, 2021 Subjective Patient seen and examined. No nausea vomiting. Low-grade fever overnight. Low urine output overnight Review of Systems Constitutional: + fever; no chills Physical Exam Constitutional: WD/WN, vitals as above Respiratory: + respiratory distress and + labored breathing Cardiovascular: Rate/Rhythm: regular rate Gastrointestinal (Abdomen): Soft, tender to palpation throughout, positive distention, no rebound or guarding Results & Data ([facility]) Vital Signs (Past 12 Hours) Vital Signs Temp Pulse Resp BP Pulse Ox 10/04/21 11:46 37.6 C H 101 H 18 141/60 H 96 10/04/21 11:25 37.6 C H 102 H 16 118/69 88 L 10/04/21 07:00 37.7 C H 94 H 14 132/75 92 PG Care Time/CCT Total # of Minutes Spent Total Time Spent with Patient: Total time spent is greater than 50% in coordination of care (as documented) at patient's floor/unit and/or counseling patient: Coding Level of Care Code 47316 Subs Hosp Care Lvl 3 Diagnoses C. difficile colitis A04.72
[2021-10-04] MEDS ORDERED: STAT IV Infusion **Titration per Protocol STA ×2 (13:16→16:55)
[2021-10-04] MEDS ORDERED: ePHEDrine sulfate 50 MG/ML AMP IV PRN (13:42)
[2021-10-04] MEDS ORDERED: ATROPINE SULFATE 0.1 MG/ML 10ML SYR IV PRN (13:42)
[2021-10-04] MEDS ORDERED: PHENYLEPHRINE HCL 10 MG/ML VIAL ONE (14:09)
--- NOTE | 2021-10-04 14:30 | Post Operative Brief Note ---
PG Immediate Post Op with CF Date of Surgery October 04, 2021 Pre & Post Diagnosis Operation Date: 10/04/21 08:20 Pre-Op Diagnosis: C. Diff colitis, failure of medical management Post-Op Diagnosis: C. Diff colitis, failure of medical management I identified the patient and participated in the time-out.: Yes Procedure Operation Date: 10/04/21 08:20 Actual Procedures p Exploratory Laparotomy, Lysis of Adhesions, Sub total colectomy and creation of end ileostomy(Not Applicable) - Wil Ness DO Surgeon Wil Ness DO Hospitality House Supervisor Xavier Keith PA-C Estimated Blood Loss 25 Findings See Below Extremely dilated and edematous colon Specimens Specimen Description: A: colon and ilium Drains Other Anesthesia Type General Complications none Disposition Disposition: Recovery Room
--- NOTE | 2021-10-04 14:38 | Operative Report ---
PG Post Operative Report Pre & Post Diagnosis Operation Date: 10/04/21 08:20 Pre-Op Diagnosis: C. difficile colitis, failure of medical management Post-Op Diagnosis: C. difficile colitis, failure of medical Management I identified the patient and participated in the time-out.: Yes Procedure Operation Date: 10/04/21 08:20 Actual Procedures p Exploratory Laparotomy, Lysis of Adhesions, Sub total colectomy and Creation of end ileostomy(Not Applicable) - Wil Ness DO Surgeon Wil Ness DO Ostomy Care Nurse Xavier Keith PA-C Estimated Blood Loss 25 Findings See Below Extremely dilated and edematous colon throughout its entirety Specimens Colon and ileum to pathology Drains None Anesthesia Type General Complications none Disposition Disposition: Recovery Room Indications 65-year-old female with worsening leukocytosis and acute renal failure in the setting of C. difficile colitis Refractory to medical management Description of Procedure The patient was brought to the OR and placed in the supine position with both arms abducted. At this time she underwent general endotracheal anesthesia without any problems. She was given appropriate pre-operative antibiotics. Her abdomen was prepped and draped in the usual sterile fashion. Timeout was called. The procedure was verified as Exploratory laparotomy, Possible bowel resection possible ostomy. Surgical, anesthesia and nursing teams agreed and the procedure was begun. A standard midline incision was made using a #10 blade scalpel. This was carried down to the fascia using electrocautery. The midline fascia was then incised with electrocautery. The peritoneum was then entered bluntly. The incision was then opened up through its entirety. There were filmy adhesions lysed Using sharp dissection along the inferior portion of the incision At her previous hysterectomy incision. The colon was then visualized and severely edematous and dilated with some ischemic changes noted. At this time a healthy portion of rectum was visualized and transected using an Endo COURT 60 mm purple load stapler. The colon was then mobilized proximally along the white line of Toldt protecting the left ureter all the way to the splenic flexure. The mesentery was then taken using the LigaSure device. The splenic flexure was then taken down using sharp dissection through the splenocolic ligament until the colon was fully mobilized away from the spleen. We continued to take the mesentery of the transverse colon using the LigaSure device taking care not to injure the stomach or duodenum. We then mobilized the right colon along the white line of Toldt using sharp dissection and sweeping the duodenum posteriorly. Using a LigaSure device we then continued to take the mesentery of the colon. The terminal ileum did have a dusky appearance to it. We transected a healthy appearing portion of the ileum using a Endo COURT 60 mm purple load stapler. We then took the rest of the ileal mesentery using the LigaSure device as well as the mesentery of the right colon. Specimen was then passed off. At this point the wound was then irrigated until clear. Hemostasis was achieved using electrocautery. Hemostasis was complete. A circular incision was then made in the right mid abdomen using a 10 blade scalpel. This was carried down to the fascia bluntly using [employer] retractors. A cruciate incision in the anterior rectus sheath was made using electrocautery. Using a Myrna clamp the muscle fibers were spread and another cruciate incision was made in the posterior fascial layer and peritoneum. The ileum was then brought through the incision and was not under any tension. 2 fingers of the operating surgeon were able to be inserted into the fascial defect. The fascia was then closed in a running fashion using 2 #1 looped PDS suture starting superiorly and inferiorly and meeting in the middle. Skin was closed with sammie. Ileostomy was then opened using Milian scissors and was matured in a Lashae fashion to the skin using 3-0 Vicryl suture. Ostomy appliance was placed and a sterile dressing was placed on the midline incision.The patient was then left intubated and taken immediately to the intensive care unit for recovery. She remained stable throughout the entire case. All needle and sponge counts were correct x 2. The physician's autopsy assistant was present and scrubbed for the entirety of the case. He was critical in positioning the patient, prepping and draping, retraction and exposure, closure of the incision and placement of the dressings. I attest to the content of the Intraoperative Record and any orders documented therein. Any exceptions are noted below.
--- NOTE | 2021-10-04 14:40 | Pharmacy Report ---
Pharmacy Glycemic Short Note 2 - Date of Service October 04, 2021 - Glycemic Short BSG Results (Last 24 hours): 10/03/21 10/03/21 10/03/21 17:15 20:35 23:13 Glucose POC Glucose 187 H 164 H 177 H 10/04/21 10/04/21 10/04/21 00:00 03:17 04:26 Glucose 190 H POC Glucose 197 H 190 H 10/04/21 10/04/21 10/04/21 07:26 08:18 11:02 Glucose POC Glucose 167 H 145 H 202 H OUTPATIENT ANTIDIABETIC REGIMEN: * Lantus 18 units SQ BID ASSESSMENT: 10/04/21: * Patient received total 15 units of insulin yesterday; 10 units basal + 5 units bolus. * Fasting BSG today was 190 mg/dl. Hospitalist ordered 10 units IV since patient was going to surgery this AM. * Basal dose BID increased starting tonight. * BSGs were elevated above goal last night and again at noon today. * Patient has had no oral food intake. BSG elevation likely due to stress. Novolog CF tightened at noon today. Background 10/03/21: * 65 y/o F admitted for Colitis. She has a history of diabetes managed at home only on basal insulin BID. * She was started on Lantus 5 units SQ BID since 10/01 HS which was continued through yesterday. * Her renal function seems to have worsened today. Serum creat is 2.33 mg/dl. * Fasting BSG today was 196 mg/dl. Continued the same dose of Lantus BID since renal function looks worse today. * Pre-lunch BSG = 194 mg/dl. * Novolog CF/CR continued the same but tightened goal range to 110-140. She should receive more insulin correctional with this range. * Hesitate to tighten parameters at this time since she is not eating very much. PLAN FOR INPATIENT GLYCEMIC CONTROL: * Basal insulin: increased * Lantus 8 units SQ BID starting tonight * Bolus insulin: tightened CF/CR * NovoLog per scale ACHS or Q6hrs while NPO * Goal Range: Low 110 mg/dL - High 140 mg/dL * Correction Factor: 20 mg/dL/unit * Nutritional / Prandial insulin per carb ratio of 1 unit per 9 grams CHO consumed PLAN FOR DISCHARGE: * TBD
--- NOTE | 2021-10-04 14:50 | Anesthesiology Progress Note ---
Date of Service October 04, 2021 Anesthesia Post Procedure Vital Signs Vital Signs: Temp Pulse Pulse Resp BP Pulse Ox 10/04/21 14:35 75 18 141/60 H 96 10/04/21 11:46 37.6 C H 101 H 18 141/60 H 96 10/04/21 11:25 37.6 C H 102 H 16 118/69 88 L 10/04/21 07:00 37.7 C H 94 H 14 132/75 92 10/03/21 23:07 36.7 C 98 H 20 149/83 H 93 10/03/21 22:59 103 H 10/03/21 22:39 101 H 10/03/21 17:06 36.8 C 91 H 18 149/76 H 95 10/03/21 16:30 84 Pain Intensity Lower Abdomen: Pain Intensity: 7 Transfer of Care Handoff Completed per policy Notes Mental Status: see notes below Patient Amnestic to Procedure: Yes Nausea / Vomiting: adequately controlled Pain: adequately controlled Airway Patency, RR, SpO2: see Notes below BP & HR: see Notes below Hydration State: stable & adequate Anesthetic Complications: no major complications apparent Notes: Patient remains on ventilator as planned post op. CXR ordered for central line placement in OR. Still requiring light pressor support at 0.04 mcg/kg/min norepinephrine. I have given report to the active directory specialist.
[2021-10-04] MEDS ORDERED: MoRPHine SULFATE 4 MG/ML 1 ML CARP\\VIAL IV PRN (15:12)
[2021-10-04] MEDS ORDERED: MoRPHine SULFATE 2 MG/ML CARP IV PRN (15:12)
[2021-10-04] MEDS ORDERED: SODIUM CHLORIDE 0.9% 500 ML IV SCH (15:12)
--- NOTE | 2021-10-04 15:41 | Critical Care Consultation ---
Date of Consultation October 04, 2021 Assessment & Plan (1) Junctional tachycardia: (2) Right heart failure: (3) Chronic respiratory failure with hypoxia, on home O2 therapy: (4) UTI (urinary tract infection): (5) C. difficile colitis: (6) Chronic kidney disease: (7) Acute on chronic diastolic CHF (congestive heart failure): (8) GERD (gastroesophageal reflux disease): (9) Hyperlipidemia: (10) Anxiety: (11) Depression: Reason Critically Ill: 65-year-old female with PMH of A. fib on Eliquis, chronic diastolic CHF, HTN, HLD, status post mitral valve repair in 2004, chronic cor pulmonale, chronic hyponatremia, COPD (current smoker), CKD stage III, hypothyroidism, history of DVT in left hand and left leg, DM type II, bipolar, depression, anxiety, and COVID infection in September 2020, here with c.difficile colitis s/p subtotal colectomy with end ileostomy creation, acute on chronic renal failure, and now mechanically ventilated after her surgical procedure. Neuro CAM ICU: UNABLE TO ASSESS Sedation: Propofol Analgesia: Has thoracic block, which may reduce the need for analgesia Intubated and sedated as above. Cardiac A.fib -- home Cardizem and metoprolol succinate held this AM. Also on digoxin maintenance dosing. Will check digoxin level. Currently NSR. Requiring Levophed for pressure support in the setting of mechanical vent/sedation. Chronic right heart failure -- secondary to COPD. Meds as above. So far 4L po sitive throughout admission but likely to require more fluids in the setting of sepsis due to colitis. Mechanical ventilation to assist as likely she will develop some degree of pulmonary vascular congestion with continued fluid resuscitation. Respiratory Currently mechanically ventilated s/p colectomy. Will continue this as she is likely to require ventilatory support with continued fluids. Will check ABG with AM labs. She has underlying O2-dependent COPD on 2L NC at home. Once able to be extubated plan to continue home inhaler regimen. GI C. diff colitis -- on oral vancomycin and IV metronidazole. Now s/p subtotal colectomy with end ileostomy creation by general surgery. NPO -- consider tube feeds if requiring mechanical ventilation for longer than 24 hours, which is likely. Protonix 40mg IV BID. Renal/Electrolytes Acute on chronic renal failure -- creatinine continues to worsen. Nephrology consulted today by primary service. She had Sinclair placed 10/03/21 due to urinary retention. 4L positive throughout admission. Discussion held with granddaughter about the possibility of dialysis and she believes her grandmother would not want aggressive measures taken. She believes dialysis would be considered an aggressive treatment by her grandmother. Monitor e-lytes, replete as needed. Sinclair in place Endo ICU hyperglycemia protocol Heme Stable H&H. Monitor daily ID Sepsis 2/ c.diff colitis -- as above, now s/p colectomy and end ileostomy creation. On PO vancomycin and IV Flagyl. White blood count at 50K consistent with a leukemoid reaction secondary to colitis. Remains febrile and hypotensive, will give 1 L Normosol bolus at this time and then continue with Normosol at 125 cc/h. Monitor CVP pressures to maintain around 12 mmHg. UTI --treated with ceftriaxone since 10/02/2021, will discontinue after 3 total days. Blood cultures and fungal culture ordered Initiate caspofungin 70 mg today and 50 mg daily thereafter Monitor fever curve. Lines/IV Access - PIVs intact. DVT Prophylaxis Hold on chemoprophylaxis for 24 hours postsurgery. Thank you for allowing us to be part of this patient's care. Please refer to Dr. Cornejo's documentation for any further recommendations. Supervising Physician Co-Signing Physician Notes Dr. Byers was resident physician during care of patient. I separately evaluated patient for herrera portions of the history and the exam. I was present during the critical portion of medical decision making, and I discussed the case with the resident. I generally agree with the findings and plan. Discussed with patient's granddaughter goals of care. Definitively DNR/DNI in event of cardiac arrest. Would not want heroic measures undertaken we discussed risks and benefits of dialysis patient would not want dialysis at this time. Explained that we will attempt to extubate the patient as soon as possible however anticipate massive fluid shifts and she already has compromised lungs with COPD and on baseline oxygen at home and still requiring significant volume resuscitation. I have personally spent 50 minutes of critical care time in the direct management of this patient. This is a life/limb threatening event. This includes time spent evaluating patient, direct bedside care, chart review, placing orders, interpretation of diagnostic studies, discussion with consultants, patient, and/or family members regarding treatment decisions, as well as other required patient management activities. This time is exclusive of all separately billable procedures, and teaching time and separate from and in addition to any other critical care service time. History of Present Illness Attending Physician: Asha Gylnn MD History of Present Illness Juliet Minaya is a 65-year-old female with PMH of A. fib on Eliquis, chronic diastolic CHF, HTN, HLD, status post mitral valve repair in 2004, chronic cor pulmonale, chronic hyponatremia, COPD (current smoker), CKD stage III, hypothyroidism, history of DVT in left hand and left leg, DM type II, bipolar, depression, anxiety, and COVID infection in September 2020. She was started on cefdinir 09/15/21 for UTI, which improved her urinary symptoms. However, she developed abdominal pain, diarrhea. Was found to have c.diff colitis and started on oral vancomycin. She continued to clinically worsen and was eventually started on vanco ME and IV flagyl in addition to the oral vanco. She continued to have worsening leukocytosis and developed acute on chronic renal failure. She was taken to OR by Gen Surg for exploratory laparotomy, subtotal colectomy with end ileostomy creation. Anesthesiology planned to continue mechanical ventilation after surgery due to multiple issues including O2-dependent COPD at baseline. She had an uncomplicated surgical course and was brought to the intensive care unit due to mechanical ventilation. Allergies Allergy/AdvReac Type Severity Reaction Status Date / Time bee venom protein (honey bee) Allergy Severe Anaphylaxis Verified 10/01/21 13:56 lisinopril Allergy Severe ANGIOEDEMA, Verified 10/01/21 13:56 FACIAL CELLULITIS, RASH strawberry Allergy Severe LIPS, Verified 10/01/21 13:56 TONGUE, FACE SWELLS alprazolam Allergy Intermediate RED FACE, Verified 10/01/21 13:56 FACE SWELLING alendronate sodium Allergy Unknown ON [facility] MED Verified 10/01/21 13:56 LIST colesevelam AdvReac Intermediate Abdominal Verified 10/01/21 13:56 Pain lactose AdvReac Intermediate VOMTING Verified 10/01/21 13:56 DIARRHEA ABDOMINAL PAIN-LACTOSE INTOLERANCE lithium AdvReac Intermediate jitters Verified 10/01/21 13:56 metronidazole AdvReac Intermediate ABD PAIN, Verified 10/01/21 13:56 WEAKNESS, NAUSEA, VOMITING prednisone AdvReac Mild AGGRESSIVE Verified 10/01/21 13:56 BEHAVIOR Home Medications Medication Instructions Recorded Confirmed Type atorvastatin 40 mg tablet 40 mg PO HS 06/19/18 10/01/21 History cetirizine 10 mg tablet 10 mg PO HS 06/19/18 10/01/21 History cholecalciferol (vitamin D3) 25 1,000 unit PO QAM 06/19/18 10/01/21 History mcg (1,000 unit) tablet (Vitamin D3) docusate sodium 100 mg tablet 100 mg PO BID PRN 06/19/18 10/01/21 History epinephrine 0.3 mg/0.3 mL 0.3 mg IM DIRECTED PRN 06/19/18 10/01/21 History injection, auto-injector (EpiPen) fentanyl 50 mcg/hr transdermal 50 mcg TRANSDERMAL [id number] 06/19/18 10/01/21 History patch methocarbamol 750 mg tablet 750 mg PO TID 06/19/18 10/01/21 History multivitamin 1 tab PO QAM 06/19/18 10/01/21 History ondansetron 8 mg disintegrating 8 mg PO BID PRN 06/19/18 10/01/21 History tablet tiotropium bromide 18 mcg capsule 1 cap INHALATION QAM 06/19/18 10/01/21 History with inhalation device (Spiriva with HandiHaler) venlafaxine 150 mg 150 mg PO QAM 06/19/18 10/01/21 History capsule,extended release 24 hr trazodone 100 mg tablet 200 mg PO HS 09/14/18 10/01/21 History venlafaxine 75 mg capsule,extended 75 mg PO QAM 09/14/18 10/01/21 History release 24 hr zolpidem 5 mg tablet 5 mg PO HS 09/14/18 10/01/21 History gabapentin 800 mg tablet 800 mg PO BID 05/28/19 10/01/21 History insulin glargine 100 unit/mL 18 unit SUBCUT BID 03/02/20 10/01/21 History subcutaneous solution (Lantus U-100 Insulin) potassium chloride 10 mEq 10 meq PO TID 03/02/20 10/01/21 History tablet,extended release levalbuterol HCl 1.25 mg/3 mL 1.25 mg INHALATION Q4H PRN 03/24/20 10/01/21 History solution for nebulization nitroglycerin 0.4 mg sublingual 0.4 mg SUBLINGUAL DIRECTED PRN 07/02/20 10/01/21 History tablet (Nitrostat) fluticasone 250 mcg-salmeterol 50 1 inh INHALATION BID 08/01/20 10/01/21 History mcg/dose blistr powdr for inhalation (Advair Diskus) calcitriol 0.25 mcg capsule 0.25 mcg PO 3XWK 10/21/20 10/01/21 History Al hyd-Mg tr-alg ac-sod bicarb 80 1 tab PO TID PRN 11/08/20 10/01/21 History mg-14.2 mg chewable tablet (Gaviscon) acetaminophen 500 mg tablet 500 mg PO Q6H PRN 11/08/20 10/01/21 History furosemide 40 mg tablet 80 mg PO BID 11/08/20 10/01/21 History melatonin 10 mg tablet 10 mg PO HS 11/08/20 10/01/21 History metoprolol succinate 100 mg 100 mg PO BID 11/08/20 10/01/21 History tablet,extended release 24 hr pantoprazole 40 mg tablet,delayed 40 mg PO BID 11/08/20 10/01/21 History release polyethylene glycol 3350 17 17 g PO DAILY PRN 11/08/20 10/01/21 History gram/dose oral powder digoxin 125 mcg (0.125 mg) tablet 125 mcg PO 3XWK 01/04/21 10/01/21 History diltiazem HCl 240 mg 240 mg PO BID 01/04/21 10/01/21 History capsule,extended release 24 hr levalbuterol tartrate 45 1 puff INHALATION Q4H PRN 01/04/21 10/01/21 History mcg/actuation aerosol inhaler (Xopenex HFA) apixaban 5 mg tablet (Eliquis) 5 mg PO BID 02/05/21 10/01/21 History aspirin 81 mg tablet,delayed 81 mg PO QAM #30 tab 02/20/21 10/01/21 Rx release amitriptyline 25 mg tablet 25 mg PO HS 03/21/21 10/01/21 History guaifenesin 600 mg tablet, 600 mg PO BID 07/07/21 01/17/22 History extended release 12 hr (Mucinex) mometasone 50 mcg/actuation nasal 2 spray INTRANASAL QPM 03/21/21 10/01/21 History spray oxycodone 5 mg tablet 5 mg PO Q6H PRN 08/09/21 10/01/21 History cefdinir 300 mg capsule 300 mg PO BID 7 Days #14 cap 09/27/21 10/01/21 Rx Patient History Medical History (Updated 10/04/21 @ 19:37 by Winter Alberto MD, PhD) Anxiety Asthma 2LPM via n/c mostly continuous (although patient states she does not wear this all the time) Atrial fibrillation A fib/a. flutter s/p cardioversion and ablation (2016); s/p pacer (March 2021)/ follows with Javan Maravilla Atrial flutter Follows Javan Maravilla Lynn esophagus Bipolar disorder Chronic back pain Chronic cor pulmonale Chronic right HR Chronic obstructive pulmonary disease 2LPM via n/c mostly continuous (although patient states she does not wear this all the time) sees Dr. Vickers Chronic pain Chronic respiratory failure with hypoxia, on home oxygen therapy CKD (chronic kidney disease), stage III follows w/ Dr Alberto CVA (cerebral vascular accident) 2004 (per records; patient denies) Depression Diastolic CHF, chronic DM type 2 (diabetes mellitus, type 2) Fibromyalgia Sinclair catheter in place follows with Dr James Gastroparesis GERD (gastroesophageal reflux disease) History of COVID-19 + 10/11/20; fatigue, congestion; resolved. +02/2021 at [facility]. No current problems. History of DVT (deep vein thrombosis) Left "hand" 2004- on AC HTN (hypertension) Hyperlipidemia Hypothyroidism No current medication per doctor orders. 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 Vickers Severe obstructive sleep apnea CPAP Surgical History History of adenoidectomy History of appendectomy LAPAROSCOPY History of cardiac cath 2004= no stents History of cardioversion History of carpal tunnel release left History of cataract surgery BILATERAL History of cholecystectomy LAPAROSCOPY History of colonoscopy History of esophagogastroduodenoscopy (EGD) History of hysterectomy EMIGDIO WITH BSO History of mitral valve repair 2005 + resection fibroelastoma History of tonsillectomy Hx of lumpectomy right breast BENIGN Hx of tubal ligation Hx of umbilical hernia repair S/P epidural steroid injection S/P placement of cardiac pacemaker 03/2021; rapid HR; sees Javan Maravilla; unsure of brand; last check 06/27/21 S/P trigger finger release RIGHT/LEFT Family History Mother Family history of diabetes mellitus Sister Family history of diabetes mellitus Ulcerative colitis Social History Smoking Status: Current every day smoker Tobacco Type: Cigarettes Cigarettes Per Day: 10 cigs per day; Second Hand Exposure: No; Tobacco Cessation Education Requested by Patient: No Hx Alcohol Use: No Hx Substance Use: No Preferred Language: Singaporean Communication Ability: Effective Visual Impairment: No Limitations Planner/Scheduler Required: No Beliefs That Will Affect Care: None marital status: Unknown Current Living Situation: Alone Current Living Situation Comment: caregiver comes daily 8-5 Friday through Friday. weekends 9-1pm Other Information That Helps Us Care for You: No Feels Safe at Home: Yes Safety Concerns: Feels Safe At This Time Assistive Devices: Oxygen - Continuous Review of Systems Review of Systems: Unobtainable due to endotracheal tube Physical Exam Physical Exam: GENERAL: Intubated, sedated CHEST/LUNGS: CTAB A/P. No crackles, wheezes, rales, rhonchi. HEART: RRR. No m/g/r. No carotid bruits. ABDOMEN: ND, soft. Ileostomy in place c/d/i EXTREMITIES: No cyanosis, no clubbing, no edema SKIN: Warm and dry. No rashes or lesions. Results & Data Results & Data ([facility]) Vital Signs (Past 12 Hours) Vital Signs Temp Pulse Resp BP Pulse Ox 10/04/21 14:50 38.2 C H 79 18 125/47 L 96 10/04/21 14:35 38.3 C H 75 18 140/47 L 97 10/04/21 11:46 37.6 C H 101 H 18 141/60 H 96 10/04/21 11:25 37.6 C H 102 H 16 118/69 88 L 10/04/21 07:00 37.7 C H 94 H 14 132/75 92 Critical Care Results & Data Vital Signs (Past 12 Hours) Vital Signs Temp Pulse Resp BP Pulse Ox 10/04/21 14:50 38.2 C H 79 18 125/47 L 96 10/04/21 14:35 38.3 C H 75 18 140/47 L 97 10/04/21 11:46 37.6 C H 101 H 18 141/60 H 96 10/04/21 11:25 37.6 C H 102 H 16 118/69 88 L 10/04/21 07:00 37.7 C H 94 H 14 132/75 92 Lab & Micro Results (Past 24 Hours) RBC 4.79 M/uL (4.2-5.4) 10/05/21 WBC 43.10 K/uL (4.8-10.8) H* 10/05/21 Hgb 14.9 g/dL (12.0-16.0) 10/05/21 Hct 43.0 % (37-47) 10/05/21 MCV 89.8 fL (80-100) 10/05/21 MCH 31.1 pg (25-34) 10/05/21 MCHC 34.7 g/dL (32-36) 10/05/21 RDW Standard Deviation 44.3 fL (36.4-46.3) 10/05/21 RDW Coefficient of Variation 13.5 % (11.5-14.5) 10/05/21 Plt Count 221 K/uL (130-400) 10/05/21 MPV 11.1 fL (7.4-10.4) H 10/05/21 Neutrophils (%) (Auto) 88.8 % 10/05/21 Lymphocytes (%) (Auto) 3.5 % 10/05/21 Monocytes # (Auto) 1.32 K/uL (0.11-0.59) H 10/05/21 Eosinophils # (Auto) 0.00 K/uL (0-0.5) 10/05/21 Immature Granulocyte % (Auto) 4.3 % 10/05/21 Neutrophils # (Auto) 38.27 K/uL (1.4-6.5) H 10/05/21 Lymphocytes # (Auto) 1.53 K/uL (1.2-3.4) 10/05/21 Monocytes # (Auto) 1.32 K/uL (0.11-0.59) H 10/05/21 Eosinophils # (Auto) 0.00 K/uL (0-0.5) 10/05/21 Basophils # (Auto) 0.14 K/uL (0-0.2) 10/05/21 Immature Granulocyte # (Auto) 1.84 K/uL (0.00-0.02) H 10/05/21 Echinocytes 1+ 10/04/21 Toxic Vacuolation 1+ 10/05/21 Na 136 mmol/L (136-145) 10/04/21 K 5.4 mmol/L (3.5-5.1) H 10/04/21 Cl 107 mmol/L (98-107) 10/04/21 CO2 18 mmol/L (21-32) L 10/04/21 Anion Gap 11 (3-11) 10/04/21 BUN 66 mg/dl (6-23) H 10/04/21 Creatinine 3.52 mg/dl (0.6-1.2) H 10/04/21 Estimated GFR ( Amer) 15.1 ml/min 10/04/21 Estimated GFR (Non-Af Amer) 13.0 ml/min 10/04/21 BUN/Creatinine Ratio 18.8 (10-20) 10/04/21 Glu 178 mg/dl (70-99(Fasting)) H 10/04/21 Ca 6.8 mg/dl (8.5-10.1) L 10/04/21 Phosphorus Level 6.0 mg/dl (2.5-4.9) H 10/04/21 Direct Bilirubin Pending 10/05/21 Mg 2.3 mg/dl (1.7-2.4) 10/04/21 20:22 10/04/21 Calcium Level 6.8 mg/dl (8.5-10.1) L 10/04/21 20:22 10/04/21 Prothromb Time International Ratio 1.4 (0.9-1.1) H 10/05/21 04:35 10/05/21 Alexandr Test NA 10/05/21 04:05 10/05/21 Microbiology 10/01/21 13:44 Aerobic Blood Culture - Preliminary Blood No growth in Aerobic bottle after 48 hours. Anaerobic Blood Culture - Preliminary No growth in Anaerobic bottle after 48 hours. 10/01/21 13:03 Aerobic Blood Culture - Preliminary Blood No growth in Aerobic bottle after 48 hours. Anaerobic Blood Culture - Preliminary No growth in Anaerobic bottle after 48 hours. Diagnostic Findings (Past 24 Hours) Chest X-Ray 10/04/21 08:40 XR chest 1V portable CLINICAL HISTORY: Tachypnea. Follow-up bibasilar atelectasis. COMPARISON STUDY: 10/03/2021 TECHNIQUE: 1 view of the chest FINDINGS: Single frontal view of the chest demonstrates the heart to again be enlarged st atus post previous valve replacement. Permanent cardiac pacer is again seen. There has been continued decrease in bibasilar atelectasis. However, there is a small alveolar opacity at the right lung base which may relate to crowding of the bronchovascular markings. Again, follow-up PA and lateral radiographs would be helpful for further evaluation. There is no evidence for pleural effusion. There is no evidence for vascular congestion. There is no acute osseous pathology. IMPRESSION: While there has been interval improvement in bibasilar atelectasis. There is a small patchy alveolar opacity at the right lung base with follow-up recommended above. ACT 112: Negative or not required by law. Electronically signed by: Gonsalo Rehman M.D. 10/04/2021 9:01 AM I & O Totals 24 Hours 10/03/21 10/04/21 10/05/21 06:59 06:59 06:59 Intake Total 2350 / 2350 2250 / 2250 160 / 160 Output Total 1152 / 1152 226 / 226 Balance 1198 / 1198 2023 160 / 160 Cumulative 10/01/21 12:37 thru 10/04/21 13:42 Intake Total 6110 Output Total 2528 Balance 3582 RT Ventilator Mngmt (Last Documented) Ventilator Ordered Settings Respiratory Rate 18 10/04/21 14:50 Ventilator - PT Measurements Respiratory Rate 18 Resident Activity Tracking Resident Involvement: Resident Care Provided Care Provided: Adult Hospital Medicine (1) UTI (urinary tract infection) Hematuria presence: without hematuria Urinary tract infection type: acute cystitis Qualified Code(s): N30.00 - Acute cystitis without hematuria
[2021-10-04] MEDS: NOREPINEPHRINE/D5W 8 MG/508 ML BAG IV SCH (16:01)
[2021-10-04] MEDS: ACETAMINOPHEN 1000 MG/100 ML IV IV PRN (16:09)
[2021-10-04] MEDS: VENLAFAXINE HCL XR 75 MG CAPXR PO SCH (16:20)
[2021-10-04] MEDS: VENLAFAXINE HCL XR 150 MG CAPXR PO SCH (16:21)
[2021-10-04 16:23] LABS: iSTAT Arterial Blood Gas HCO3 18 meg/L (19-24); iSTAT Arterial Blood Gas pCO2 44 mmHg (35-46); iSTAT Arterial Blood Gas pH 7.23 (7.35-7.45); iSTAT Arterial Blood Gas pO2 69 mmHg (80-95); iSTAT Carbon Dioxide 20 mmol/L (24-31); iSTAT FiO2 60 %; iSTAT Site Art Line
[2021-10-04] MEDS ORDERED: ICU PROTOCOL FOR HYPERGLYCEMIA PRN (16:27)
[2021-10-04] MEDS ORDERED: PROPOFOL BOLUS FROM BAG IV PRN (16:55)
[2021-10-04] MEDS: propofoL 1,000 MG/100 ML VIAL IV SCH ×2 (17:03→22:13)
[2021-10-04] MEDS ORDERED: NORMOSOL-R 1,000 ML IV ONE (17:27)
[2021-10-04] MEDS ORDERED: NORMOSOL-R 1,000 ML IV SCH (17:30)
[2021-10-04] MEDS ORDERED: CASPOFUNGIN 70 MG in SODIUM CHLORIDE 0.9% 250 ML IV STA (17:37)
--- NOTE | 2021-10-04 17:57 | XRay Report ---
SINGLE VIEW CHEST CLINICAL HISTORY: Respiratory failure. FINDINGS: An AP, portable, semierect chest radiograph is compared to study performed earlier the same day 10/04/2021. The examination is degraded by portable technique and patient rotation. There are 2 c atheters projecting below the diaphragm. A right internal jugular central venous catheter has been pl aced. The tip projects over the SVC. An enteric tube has been placed. A 2-lead cardiac pacemaker is u nchanged in position. There is evidence of previous cardiac valve surgery. The heart is enlarged noti ng atherosclerotic calcification of the thoracic aorta. There is pulmonary vascular congestion. Bilat eral airspace opacities are again noted. Trace pleural effusions are suspected. No pneumothorax is se en. The skeletal structures are osteopenic. The bony thorax is grossly intact. Surgical clips project over the right upper chest. IMPRESSION: 1. Line and tube placement cannot be adequately assessed due to patient rotation and positioning. 2. There are 2 catheters projecting below the diaphragm, one just below the gastroesophageal junction and the other over the left upper quadrant. Clinical correlation will be required. 3. Possible endotracheal tube placement. The tip is not visualized. 4. Cardiomegaly with evidence of congestive failure. 5. Bilateral airspace opacities likely represent pulmonary edema. Correlate clinically for evidence o f a superimposed infectious/inflammatory pneumonitis. 6. No pneumothorax is identified following central venous catheter placement. ACT 112: Negative or not required by law. Electronically signed by: Jame Batres M.D. 10/04/2021 5:56 PM
--- NOTE | 2021-10-04 18:03 | Nephrology Consultation ---
Date of Consultation October 04, 2021 Assessment & Plan (1) Acute on chronic renal failure: Baseline creatinine 1.5-1.8. Stage 2 ЮЛИЯ this am and likely to worsen before/if it stabilizes given her pressor dependence, fever recent urgent surgery, colitis. Currently on broad antibacterial and fungal coverage in addition to medicaition for C diff -no urgent indication for HD though cannot rule out need; would need to clarify wishes w/ family (why do surgery or vent if trial of dialysis not a consideration) -cont strict I/O - borderline oliguria noted -recheck bmp this evening > on normosol at 125 ml/hr and levophed; may need to adjust IVF pending chemistries -recheck UA will likely be needed - reeval in AM History of Present Illness Reason for Consultation: ЮЛИЯ, metabolic acidosis Requesting Physician: Dr Nguyen Attending Physician: Asha Glynn MD History of Present Illness 65 y/o F whom I'm asked to see for ЮЛИЯ and metabolic acidosis underwent urgent subtotal colectomy w/ ileostomy creation this afternoon after being admitted here 10/01 for colitis and abdominal pain on abtx for Klebsiella UTI. She was diagnosed w/ C diff colitis and started on po vancomycin; she unfortunately developed an ileus that ultimately needed surgical intervention. PMH includes CKD 3 baseline creatinine 1.5-1.8, chronic urinary retention, DM, HTN, a fib on Eliquis s/p numerous cardioversions and s/p ablation/pacer, chronic diastolic HF and chronic R heart failure, severe pulmonary HTN, 2004 mitral valve repair, HL, active tobacco abuse, COPD on 2L 02NC 07/04, DARIUS on CPAP, past stroke, hypothyroid, remote DVT, L adrenal mass 3 cm, anxiety/depression on lithium >20 yrs in past; chronic ambulatory dysfunction (came to [facility] appt in w/c). When I evaluated her late this afternoon postoperatively, she was on a ventilator in the ICU on low dose norepinephrine; IV flagyl and po vanco continued; blood and fungal cultures ordered. ICU team prioritizing fluid resuscitation for sepsis over vent weaning at this time. Tmax today 38.9. Plan is for fluid resuscitation this evening w/ normosol Her urine output was falling prior to OR. She is overall now 4.7 L positive on the admission. ICU team d/w pt granddaughter who felt pt would not want d ialysis should the need arise. Her admission creatinine was 1.6 on 10/01; has crept up to 3.2 this am. K this am 5.3, C02 17, Na 134 > first abnormal readings on these chemistries this admission. Allergies Allergy/AdvReac Type Severity Reaction Status Date / Time bee venom protein (honey bee) Allergy Severe Anaphylaxis Verified 10/01/21 13:56 lisinopril Allergy Severe ANGIOEDEMA, Verified 10/01/21 13:56 FACIAL CELLULITIS, RASH strawberry Allergy Severe LIPS, Verified 10/01/21 13:56 TONGUE, FACE SWELLS alprazolam Allergy Intermediate RED FACE, Verified 10/01/21 13:56 FACE SWELLING alendronate sodium Allergy Unknown ON GMG MED Verified 10/01/21 13:56 LIST colesevelam AdvReac Intermediate Abdominal Verified 10/01/21 13:56 Pain lactose AdvReac Intermediate VOMTING Verified 10/01/21 13:56 DIARRHEA ABDOMINAL PAIN-LACTOSE INTOLERANCE lithium AdvReac Intermediate jitters Verified 10/01/21 13:56 metronidazole AdvReac Intermediate ABD PAIN, Verified 10/01/21 13:56 WEAKNESS, NAUSEA, VOMITING prednisone AdvReac Mild AGGRESSIVE Verified 10/01/21 13:56 BEHAVIOR Home Medications Medication Instructions Recorded Confirmed Type atorvastatin 40 mg tablet 40 mg PO HS 06/19/18 10/01/21 History cetirizine 10 mg tablet 10 mg PO HS 06/19/18 10/01/21 History cholecalciferol (vitamin D3) 25 1,000 unit PO QAM 06/19/18 10/01/21 History mcg (1,000 unit) tablet (Vitamin D3) docusate sodium 100 mg tablet 100 mg PO BID PRN 06/19/18 10/01/21 History epinephrine 0.3 mg/0.3 mL 0.3 mg IM DIRECTED PRN 06/19/18 10/01/21 History injection, auto-injector (EpiPen) fentanyl 50 mcg/hr transdermal 50 mcg TRANSDERMAL [id number] 06/19/18 10/01/21 History patch methocarbamol 750 mg tablet 750 mg PO TID 06/19/18 10/01/21 History multivitamin 1 tab PO QAM 06/19/18 10/01/21 History ondansetron 8 mg disintegrating 8 mg PO BID PRN 06/19/18 10/01/21 History tablet tiotropium bromide 18 mcg capsule 1 cap INHALATION QAM 06/19/18 10/01/21 History with inhalation device (Spiriva with HandiHaler) venlafaxine 150 mg 150 mg PO QAM 06/19/18 10/01/21 History capsule,extended release 24 hr trazodone 100 mg tablet 200 mg PO HS 09/14/18 10/01/21 History venlafaxine 75 mg capsule,extended 75 mg PO QAM 09/14/18 10/01/21 History release 24 hr zolpidem 5 mg tablet 5 mg PO HS 09/14/18 10/01/21 History gabapentin 800 mg tablet 800 mg PO BID 05/28/19 10/01/21 History insulin glargine 100 unit/mL 18 unit SUBCUT BID 03/02/20 10/01/21 History subcutaneous solution (Lantus U-100 Insulin) potassium chloride 10 mEq 10 meq PO TID 03/02/20 10/01/21 History tablet,extended release levalbuterol HCl 1.25 mg/3 mL 1.25 mg INHALATION Q4H PRN 03/24/20 10/01/21 History solution for nebulization nitroglycerin 0.4 mg sublingual 0.4 mg SUBLINGUAL DIRECTED PRN 07/02/20 10/01/21 History tablet (Nitrostat) fluticasone 250 mcg-salmeterol 50 1 inh INHALATION BID 08/01/20 10/01/21 History mcg/dose blistr powdr for inhalation (Advair Diskus) calcitriol 0.25 mcg capsule 0.25 mcg PO 3XWK 10/21/20 10/01/21 History Al hyd-Mg tr-alg ac-sod bicarb 80 1 tab PO TID PRN 11/08/20 10/01/21 History mg-14.2 mg chewable tablet (Gaviscon) acetaminophen 500 mg tablet 500 mg PO Q6H PRN 11/08/20 10/01/21 History furosemide 40 mg tablet 80 mg PO BID 11/08/20 10/01/21 History melatonin 10 mg tablet 10 mg PO HS 11/08/20 10/01/21 History metoprolol succinate 100 mg 100 mg PO BID 11/08/20 10/01/21 History tablet,extended release 24 hr pantoprazole 40 mg tablet,delayed 40 mg PO BID 11/08/20 10/01/21 History release polyethylene glycol 3350 17 17 g PO DAILY PRN 11/08/20 10/01/21 History gram/dose oral powder digoxin 125 mcg (0.125 mg) tablet 125 mcg PO 3XWK 01/04/21 10/01/21 History diltiazem HCl 240 mg 240 mg PO BID 01/04/21 10/01/21 History capsule,extended release 24 hr levalbuterol tartrate 45 1 puff INHALATION Q4H PRN 01/04/21 10/01/21 History mcg/actuation aerosol inhaler (Xopenex HFA) apixaban 5 mg tablet (Eliquis) 5 mg PO BID 02/05/21 10/01/21 History aspirin 81 mg tablet,delayed 81 mg PO QAM #30 tab 02/20/21 10/01/21 Rx release amitriptyline 25 mg tablet 25 mg PO HS 03/21/21 10/01/21 History guaifenesin 600 mg tablet, 600 mg PO BID 03/21/21 10/01/21 History extended release 12 hr (Mucinex) mometasone 50 mcg/actuation nasal 2 spray INTRANASAL QPM 03/21/21 10/01/21 History spray oxycodone 5 mg tablet 5 mg PO Q6H PRN 08/09/21 10/01/21 History cefdinir 300 mg capsule 300 mg PO BID 7 Days #14 cap 09/27/21 10/01/21 Rx Patient History Medical History (Updated 10/04/21 @ 19:37 by Winter Alberto MD, PhD) Anxiety Asthma 2LPM via n/c mostly continuous (although patient states she does not wear this all the time) Atrial fibrillation A fib/a. flutter s/p cardioversion and ablation (2016); s/p pacer (March 2021)/ follows with Javan Maravilla Atrial flutter Follows Javan Maravilla Lynn esophagus Bipolar disorder Chronic back pain Chronic cor pulmonale Chronic right HR Chronic obstructive pulmonary disease 2LPM via n/c mostly continuous (although patient states she does not wear this all the time) sees Dr. Vickers Chronic pain Chronic respiratory failure with hypoxia, on home oxygen therapy CKD (chronic kidney disease), stage III follows w/ Dr Alberto CVA (cerebral vascular accident) 2004 (per records; patient denies) Depression Diastolic CHF, chronic DM type 2 (diabetes mellitus, type 2) Fibromyalgia Culp catheter in place follows with Dr James Gastroparesis GERD (gastroesophageal reflux disease) History of COVID-19 + 10/11/20; fatigue, congestion; resolved. +02/2021 at [facility]. No current problems. History of DVT (deep vein thrombosis) Left "hand" 2005- on AC HTN (hypertension) Hyperlipidemia Hypothyroidism No current medication per doctor orders. 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 Vickers Severe obstructive sleep apnea CPAP Surgical History History of adenoidectomy History of appendectomy LAPAROSCOPY History of cardiac cath 2004= no stents History of cardioversion History of carpal tunnel release left History of cataract surgery BILATERAL History of cholecystectomy LAPAROSCOPY History of colonoscopy History of esophagogastroduodenoscopy (EGD) History of hysterectomy EMIGDIO WITH BSO History of mitral valve repair 2004 + resection fibroelastoma History of tonsillectomy Hx of lumpectomy right breast BENIGN Hx of tubal ligation Hx of umbilical hernia repair S/P epidural steroid injection S/P placement of cardiac pacemaker 03/2021; rapid HR; sees Javan Maravilla; unsure of brand; last check 06/27/21 S/P trigger finger release RIGHT/LEFT Family History Mother Family history of diabetes mellitus Sister Family history of diabetes mellitus Ulcerative colitis Social History Smoking Status: Current every day smoker Tobacco Type: Cigarettes Cigarettes Per Day: 10 cigs per day; Second Hand Exposure: No; Tobacco Cessation Education Requested by Patient: No Hx Alcohol Use: No Hx Substance Use: No Preferred Language: Wolof Communication Ability: Effective Visual Impairment: No Limitations X Ray Tech Required: No Beliefs That Will Affect Care: None marital status: Unknown Current Living Situation: Alone Current Living Situation Comment: caregiver comes daily 8-5 Friday through Friday. weekends 9-1pm Other Information That Helps Us Care for You: No Feels Safe at Home: Yes Safety Concerns: Feels Safe At This Time Assistive Devices: Oxygen - Continuous Review of Systems Review of Systems: Unobtainable due to endotracheal tube Physical Exam Constitutional: well developed, well nourished and + mechanically ventilated; no acute distress Eyes: + anicteric sclerae ENMT: Ears: no external ear abnormality Nose: no external nose abnormality Mouth: + dry oral mucous membranes Neck: no nuchal rigidity Respiratory: normal respiratory effort Auscultation: + diminished lung sounds Cardiovascular: Rate/Rhythm: regular rate and regular rhythm Extremities: + abnormal capillary refill and no edema Gastrointestinal (Abdomen): Inspection/Auscultation: + hypoactive bowel sounds Percussion/Palpation: abdomen soft; abdomen nontender and no guarding co lostomy LLQ and L sided incision Musculoskeletal: Extremities: + abnormal strength sedated Skin: no rashes, warm and dry Neurologic: intubated/sedated/ not responsive Genitourinary: culp w/ ample rafat urine Results & Data ([facility]) Vital Signs (Past 12 Hours) Vital Signs Temp Pulse Pulse Resp BP BP Pulse Ox 10/04/21 16:30 38.4 C H 80 21 116/52 L 98 10/04/21 16:27 38.1 C H 10/04/21 16:00 38.3 C H 82 21 109/50 L 98 10/04/21 15:42 108/42 L 10/04/21 15:30 38.1 C H 80 17 120/46 L 98 10/04/21 15:15 38.2 C H 80 16 115/46 L 98 10/04/21 15:04 38.2 C H 80 15 132/48 L 98 10/04/21 15:02 38.1 C H 18 118/49 L 95 10/04/21 15:00 38.2 C H 81 18 98/45 L 96 10/04/21 14:50 38.2 C H 80 79 17 125/47 L 98 10/04/21 14:35 38.3 C H 75 18 140/47 L 97 10/04/21 11:46 37.6 C H 101 H 18 141/60 H 96 10/04/21 11:25 37.6 C H 102 H 16 118/69 88 L 10/04/21 07:00 37.7 C H 94 H 14 132/75 92 Laboratory Results 10/04/21 04:26 10/04/21 04:26 ABG 1600 reviewed admission and 09/27 UAs and urine cxs reviewed Diagnostic Findings cxr 1800 1. Line and tube placement cannot be adequately assessed due to patient rotation and positioning. 2. There are 2 catheters projecting below the diaphragm, one just below the gastroesophageal junction and the other over the left upper quadrant. Clinical correlation will be required. 3. Possible endotracheal tube placement. The tip is not visualized. 4. Cardiomegaly with evidence of congestive failure. 5. Bilateral airspace opacities likely represent pulmonary edema. Correlate clinically for evidence of a superimposed infectious/inflammatory pneumonitis. 6. No pneumothorax is identified following central venous catheter placement. admission CT abd/pelvis reviewed
[2021-10-04] MEDS: cefTRIAXone SODIUM 1,000 MG in DEXTROSE 5% 50 ML IV SCH (18:28)
[2021-10-04] MEDS: FLUTICASONE PROPIONATE NA SPR 16 GM BTL SCH ×2 (20:18→21:06)
[2021-10-04] MEDS: PANTOprazole 40 MG in SYRINGE 0 ML IV SCH (20:30)
[2021-10-04] MEDS: fentaNYL 50 MCG/HR TDSY TD SCH (20:36)
[2021-10-04 20:46] LABS: INR 1.5 (0.9-1.1); Prothrombin Time 14.5 Seconds (9.0-12.0)
[2021-10-04 20:55] LABS: BUN Creatinine Ratio 18.8 (10-20); Calcium 6.8 mg/dl (8.5-10.1); Est GFR (African American) 15.1 ml/min; Magnesium 2.3 mg/dl (1.7-2.4); Potassium 5.4 mmol/L (3.5-5.1)
[2021-10-04 20:58] LABS: Basophils # (auto) 0.08 K/uL (0-0.2); Basophils % (auto) 0.2 %; Echinocytes 1+; Eosinophils # (auto) 0.01 K/uL (0-0.5); Hematocrit (blood only) 39.7 % (37-47); Hemoglobin 13.6 g/dL (12.0-16.0); Immature Granulocytes # (auto) 1.42 K/uL (0.00-0.02); Immature Granulocytes % (auto) 3.7 %; Lymphocytes # (auto) 1.37 K/uL (1.2-3.4); Lymphocytes % (auto) 3.6 %; Mean Corpuscular Hemoglobin 30.8 pg (25-34); Mean Corpuscular Hgb Conc 34.3 g/dL (32-36); Mean Corpuscular Volume 89.8 fL (80-100); Mean Platelet Volume 10.8 fL (7.4-10.4); Monocytes # (auto) 2.13 K/uL (0.11-0.59); Monocytes % (auto) 5.5 %; Neutrophils # (auto) 33.45 K/uL (1.4-6.5); Platelet Count 242 K/uL (130-400); RDW Coefficient of Variation 13.4 % (11.5-14.5); RDW Standard Deviation 44.4 fL (36.4-46.3); Red Blood Count 4.42 M/uL (4.2-5.4); Toxic Vacuolation 1+; White Blood Count 38.46 K/uL (4.8-10.8)
[2021-10-04 21:11] LABS: iSTAT Arterial Blood Gas HCO3 18 meg/L (19-24); iSTAT Arterial Blood Gas pCO2 37 mmHg (35-46); iSTAT Arterial Blood Gas pH 7.29 (7.35-7.45); iSTAT Arterial Blood Gas pO2 74 mmHg (80-95); iSTAT Carbon Dioxide 19 mmol/L (24-31); iSTAT FiO2 50 %; iSTAT Site Art Line
[2021-10-04] MEDS: SODIUM BICARBONATE 8.4% 75 MEQ in SODIUM CHLORIDE 0.45 % 1,000 ML IV SCH (22:05)
[2021-10-05] MEDS: CHECK fentaNYL PATCH PLACEMENT SCH ×2 (00:37→08:09)
[2021-10-05] MEDS: RASPBERRY SYRUP 5 ML UDP PO SCH ×4 (00:38→16:38)
[2021-10-05] MEDS: VANCOMYCIN HCL 125 MG/2.5ML SOLN PO SCH ×4 (00:39→16:38)
[2021-10-05] MEDS: ACETAMINOPHEN 1000 MG/100 ML IV IV PRN ×3 (00:41→15:51)
[2021-10-05 05:07] LABS: INR 1.4 (0.9-1.1)
[2021-10-05] MEDS: SODIUM BICARBONATE 8.4% 75 MEQ in SODIUM CHLORIDE 0.45 % 1,000 ML IV SCH ×3 (05:16→18:25)
[2021-10-05 05:31] LABS: Hemoglobin 14.9 g/dL (12.0-16.0); Mean Corpuscular Hemoglobin 31.1 pg (25-34); Mean Corpuscular Hgb Conc 34.7 g/dL (32-36); Mean Corpuscular Volume 89.8 fL (80-100); Mean Platelet Volume 11.1 fL (7.4-10.4); Platelet Count 221 K/uL (130-400); RDW Coefficient of Variation 13.5 % (11.5-14.5); RDW Standard Deviation 44.3 fL (36.4-46.3); Red Blood Count 4.79 M/uL (4.2-5.4)
[2021-10-05 05:32] LABS: Basophils # (auto) 0.14 K/uL (0-0.2); Basophils % (auto) 0.3 %; Immature Granulocytes # (auto) 1.84 K/uL (0.00-0.02); Immature Granulocytes % (auto) 4.3 %; Lymphocytes # (auto) 1.53 K/uL (1.2-3.4); Lymphocytes % (auto) 3.5 %; Monocytes # (auto) 1.32 K/uL (0.11-0.59); Monocytes % (auto) 3.1 %; Neutrophils # (auto) 38.27 K/uL (1.4-6.5); Neutrophils % (auto) 88.8 %; Toxic Vacuolation 1+
[2021-10-05 05:54] LABS: iSTAT Arterial Blood Gas HCO3 19 meg/L (19-24); iSTAT Arterial Blood Gas pCO2 39 mmHg (35-46); iSTAT Arterial Blood Gas pH 7.31 (7.35-7.45); iSTAT Arterial Blood Gas pO2 72 mmHg (80-95); iSTAT Carbon Dioxide 20 mmol/L (24-31); iSTAT FiO2 50 %; iSTAT Site Art Line
[2021-10-05] MEDS: metroNIDAZOLE 500 MG/100 ML BAG IV SCH ×3 (06:06→22:45)
[2021-10-05] MEDS: propofoL 1,000 MG/100 ML VIAL IV SCH (06:10)
--- NOTE | 2021-10-05 06:57 | Critical Care Progress Note ---
Date of Service October 05, 2021 Assessment & Plan (1) Junctional tachycardia: (2) Right heart failure: (3) Chronic respiratory failure with hypoxia, on home O2 therapy: (4) UTI (urinary tract infection): (5) C. difficile colitis: (6) Chronic kidney disease: (7) Acute on chronic diastolic CHF (congestive heart failure): (8) GERD (gastroesophageal reflux disease): (9) Hyperlipidemia: (10) Anxiety: (11) Depression: Plan: Reason Critically Ill: 65-year-old female with PMH of A. fib on Eliquis, chronic diastolic CHF, HTN, HLD, status post mitral valve repair in 2004, chronic cor pulmonale, chronic hyponatremia, COPD (current smoker), CKD stage III, hypo thyroidism, history of DVT in left hand and left leg, DM type II, bipolar, depression, anxiety, and COVID infection in September 2020, here with c.difficile colitis s/p subtotal colectomy with end ileostomy creation, acute on chronic renal failure, and now mechanically ventilated after her surgical procedure. Neuro CAM ICU: UNABLE TO ASSESS Sedation: Propofol Analgesia: Has thoracic block, which may reduce the need for analgesia Intubated. Sedation decreased and patient alert. Cardiac A.fib -- home Cardizem and metoprolol succinate. Also on digoxin maintenance dosing. Will check digoxin level. Currently NSR. Requiring Levophed for pressure support in the setting of mechanical vent/sedation. Cardiology to change meds to IV for better absorption given likely decreased GI absorption due to colectomy. Chronic right heart failure -- secondary to COPD. Meds as above. Now 7L positive with continued IVF for sepsis related to colitis. Respiratory Currently mechanically ventilated s/p colectomy. Will attempt extubation today. ABG with improvement in acidosis. She has underlying O2-dependent COPD on 2L NC at home. Once able to be extubated plan to continue home inhaler regimen. GI C. diff colitis -- on oral vancomycin and IV metronidazole. Now s/p subtotal colectomy with end ileostomy creation by general surgery. Elevated liver enzymes today with AST to 1934, AST to 666, Alk Phos is 127 (decreased from yesterday), and T Bili is WNL -- monitor closely. Coagulation studies in AM. NPO currently. Diet if able to be extubated. Protonix 40mg IV BID. Renal/Electrolytes Acute on chronic renal failure -- creatinine continues to worsen. Nephrology following. She had Sinclair placed 10/03/21 due to urinary retention. 7L positive throughout admission. Discussion held with granddaughter about the possibility of dialysis and she believes her grandmother would not want aggressive measures taken. She believes dialysis would be considered an aggressive treatment by her grandmother. Decrease sodium bicarb from 150 to 100. Monitor e-lytes, replete as needed. Sinclair in place Endo ICU hyperglycemia protocol Heme Stable H&H. Monitor daily ID Sepsis / c.diff colitis -- as above, now s/p colectomy and end ileostomy creation. On PO vancomycin and IV Flagyl. White blood count at 43K consistent with a leukemoid reaction secondary to colitis. Continues with fevers. Normosol discontinued this AM. Monitor CVP pressures to maintain around 12 mmHg. Uncomplicated UTI -- urine culture with pansensitive Klebsiella. Treated with ceftriaxone since 10/02/2021, discontinue today after 3 days. Blood cultures and fungal culture pending Discontinue caspofungin Monitor fever curve. Lines/IV Access - PIVs intact. DVT Prophylaxis Hold on chemoprophylaxis for 24 hours postsurgery. Thank you for allowing us to be part of this patient's care. Please refer to Dr. Cornejo's documentation for any further recommendations. Admission and Anticipated Discharge Date Admission Date: October 01, 2021 Supervising Physician Co-Signing Physician Notes Dr. Byers was resident physician during care of patient. I separately evaluated patient for herrera portions of the history and the exam. I was present during the critical portion of medical decision making, and I discussed the case with the resident. I generally agree with the findings and plan. Patient arousable, following simple commands, minimal vent settings we will proceed with extubation today. Reviewed cardiology and nephrology notes. We will hopefully attempt to limit additional IV fluid and wean pressors off. Patient remains critically ill decreasing sodium bicarb from 150 to 100. Discontinue ceftriaxone today secondary to Klebsiella UTI. No reported raphael spillage or perforation will discontinue caspofungin. Significant transaminitis we will continue to follow I have personally spent 55 minutes of critical care time in the direct management of this patient. This is a life/limb threatening event. This includes time spent evaluating patient, direct bedside care, chart review, placing orders, interpretation of diagnostic studies, discussion with consultants, patient, and/or family members regarding treatment decisions, as well as other required patient management activities. This time is exclusive of all separately billable procedures, and teaching time and separate from and in addition to any other critical care service time. Subjective No acute events overnight. Remains mechanically ventilated. Hemodynamically stable. Later in AM sedation decreased and patient following simple commands. Communicates wanting ETT out. Review of Systems Review of Systems: Unobtainable due to endotracheal tube Physical Exam Physical Exam: GENERAL: Intubated, alert CHEST/LUNGS: CTAB A/P. No crackles, wheezes, rales, rhonchi. HEART: RRR. No m/g/r. No carotid bruits. ABDOMEN: ND, soft. Ileostomy in place c/d/i EXTREMITIES: No cyanosis, no clubbing, no edema SKIN: Warm and dry. No rashes or lesions. Results & Data Results & Data ([facility]) Vital Signs (Past 12 Hours) Vital Signs Temp Pulse Resp BP Pulse Ox 10/05/21 06:00 38.7 C H 70 17 99 10/05/21 05:45 38.7 C H 69 17 99 10/05/21 05:30 38.7 C H 69 15 99 10/05/21 05:15 38.7 C H 70 16 100 10/05/21 05:00 38.7 C H 70 15 100 10/05/21 04:45 38.7 C H 70 14 100 10/05/21 04:30 38.7 C H 70 15 99 10/05/21 04:15 38.7 C H 69 15 99 10/05/21 04:00 38.7 C H 70 13 99 10/05/21 03:45 38.7 C H 70 18 99 10/05/21 03:40 69 18 99 10/05/21 03:30 38.7 C H 69 17 98 10/05/21 03:15 38.7 C H 72 15 99 10/05/21 03:00 38.7 C H 72 16 99 10/05/21 02:45 38.7 C H 73 16 99 10/05/21 02:30 38.7 C H 73 13 99 10/05/21 02:15 38.7 C H 73 13 98 10/05/21 02:00 38.9 C H 70 14 98 10/05/21 01:45 39.2 C H 74 17 100 10/05/21 01:30 39.2 C H 75 16 99 10/05/21 01:15 39.2 C H 75 15 99 10/05/21 01:00 39.2 C H 75 19 99 10/05/21 00:45 39.2 C H 78 16 99 10/05/21 00:30 39.2 C H 79 16 99 10/05/21 00:15 39.2 C H 80 16 98 10/05/21 00:00 39.2 C H 80 16 100 10/04/21 23:45 39.2 C H 79 18 98 10/04/21 23:30 39.2 C H 79 19 98 10/04/21 23:15 39.2 C H 79 21 99 10/04/21 23:01 39.2 C H 79 21 136/61 99 10/04/21 22:45 79 22 98 10/04/21 22:31 39.1 C H 139/65 10/04/21 22:15 39.1 C H 80 13 99 10/04/21 22:01 39.1 C H 78 20 143/65 H 98 10/04/21 21:45 39.1 C H 80 18 97 10/04/21 21:30 39.1 C H 82 22 146/65 H 98 10/04/21 21:15 39.1 C H 82 21 98 10/04/21 21:10 81 23 100 10/04/21 21:00 39 C H 82 22 98 10/04/21 20:45 39 C H 84 22 98 10/04/21 20:30 39 C H 83 21 141/71 H 98 10/04/21 20:15 39 C H 83 19 98 10/04/21 20:01 38.8 C H 82 23 135/60 98 10/04/21 19:51 38.7 C H 10/04/21 19:45 38.8 C H 82 21 98 10/04/21 19:31 38.8 C H 78 19 152/54 H 100 10/04/21 19:15 38.8 C H 78 20 100 10/04/21 19:01 38.8 C H 80 21 150/59 H 100 10/04/21 19:00 81 Critical Care Results & Data Vital Signs (Past 12 Hours) Vital Signs Temp Pulse Resp BP Pulse Ox 10/05/21 06:00 38.7 C H 70 17 99 10/05/21 05:45 38.7 C H 69 17 99 10/05/21 05:30 38.7 C H 69 15 99 10/05/21 05:15 38.7 C H 70 16 100 10/05/21 05:00 38.7 C H 70 15 100 10/05/21 04:45 38.7 C H 70 14 100 10/05/21 04:30 38.7 C H 70 15 99 10/05/21 04:15 38.7 C H 69 15 99 10/05/21 04:00 38.7 C H 70 13 99 10/05/21 03:45 38.7 C H 70 18 99 10/05/21 03:40 69 18 99 10/05/21 03:30 38.7 C H 69 17 98 10/05/21 03:15 38.7 C H 72 15 99 10/05/21 03:00 38.7 C H 72 16 99 10/05/21 02:45 38.7 C H 73 16 99 10/05/21 02:30 38.7 C H 73 13 99 10/05/21 02:15 38.7 C H 73 13 98 10/05/21 02:00 38.9 C H 70 14 98 10/05/21 01:45 39.2 C H 74 17 100 10/05/21 01:30 39.2 C H 75 16 99 10/05/21 01:15 39.2 C H 75 15 99 10/05/21 01:00 39.2 C H 75 19 99 10/05/21 00:45 39.2 C H 78 16 99 10/05/21 00:30 39.2 C H 79 16 99 10/05/21 00:15 39.2 C H 80 16 98 10/05/21 00:00 39.2 C H 80 16 100 10/04/21 23:45 39.2 C H 79 18 98 10/04/21 23:30 39.2 C H 79 19 98 10/04/21 23:15 39.2 C H 79 21 99 10/04/21 23:01 39.2 C H 79 21 136/61 99 10/04/21 22:45 79 22 98 10/04/21 22:31 39.1 C H 139/65 10/04/21 22:15 39.1 C H 80 13 99 10/04/21 22:01 39.1 C H 78 20 143/65 H 98 10/04/21 21:45 39.1 C H 80 18 97 10/04/21 21:30 39.1 C H 82 22 146/65 H 98 10/04/21 21:15 39.1 C H 82 21 98 10/04/21 21:10 81 23 100 10/04/21 21:00 39 C H 82 22 98 10/04/21 20:45 39 C H 84 22 98 10/04/21 20:30 39 C H 83 21 141/71 H 98 10/04/21 20:15 39 C H 83 19 98 10/04/21 20:01 38.8 C H 82 23 135/60 98 10/04/21 19:51 38.7 C H 10/04/21 19:45 38.8 C H 82 21 98 10/04/21 19:31 38.8 C H 78 19 152/54 H 100 10/04/21 19:15 38.8 C H 78 20 100 10/04/21 19:01 38.8 C H 80 21 150/59 H 100 10/04/21 19:00 81 Lab & Micro Results (Past 24 Hours) RBC 4.79 M/uL (4.2-5.4) 10/05/21 WBC 43.10 K/uL (4.8-10.8) H* 10/05/21 Hgb 14.9 g/dL (12.0-16.0) 10/05/21 Hct 43.0 % (37-47) 10/05/21 MCV 89.8 fL (80-100) 10/05/21 MCH 31.1 pg (25-34) 10/05/21 MCHC 34.7 g/dL (32-36) 10/05/21 RDW Standard Deviation 44.3 fL (36.4-46.3) 10/05/21 RDW Coefficient of Variation 13.5 % (11.5-14.5) 10/05/21 Plt Count 221 K/uL (130-400) 10/05/21 MPV 11.1 fL (7.4-10.4) H 10/05/21 Neutrophils (%) (Auto) 88.8 % 10/05/21 Lymphocytes (%) (Auto) 3.5 % 10/05/21 Monocytes # (Auto) 1.32 K/uL (0.11-0.59) H 10/05/21 Eosinophils # (Auto) 0.00 K/uL (0-0.5) 10/05/21 Immature Granulocyte % (Auto) 4.3 % 10/05/21 Neutrophils # (Auto) 38.27 K/uL (1.4-6.5) H 10/05/21 Lymphocytes # (Auto) 1.53 K/uL (1.2-3.4) 10/05/21 Monocytes # (Auto) 1.32 K/uL (0.11-0.59) H 10/05/21 Eosinophils # (Auto) 0.00 K/uL (0-0.5) 10/05/21 Basophils # (Auto) 0.14 K/uL (0-0.2) 10/05/21 Immature Granulocyte # (Auto) 1.84 K/uL (0.00-0.02) H 10/05/21 Echinocytes 1+ 10/04/21 Toxic Vacuolation 1+ 10/05/21 Na 133 mmol/L (136-145) L 10/05/21 K 4.7 mmol/L (3.5-5.1) 10/05/21 Cl 104 mmol/L (98-107) 10/05/21 CO2 21 mmol/L (21-32) 10/05/21 Anion Gap 8 (3-11) 10/05/21 BUN 70 mg/dl (6-23) H 10/05/21 Creatinine 3.55 mg/dl (0.6-1.2) H 10/05/21 Estimated GFR ( Amer) 14.9 ml/min 10/05/21 Estimated GFR (Non-Af Amer) 12.9 ml/min 10/05/21 BUN/Creatinine Ratio 19.7 (10-20) 10/05/21 Glu 162 mg/dl (70-99(Fasting)) H 10/05/21 Ca 6.6 mg/dl (8.5-10.1) L 10/05/21 Phosphorus Level 5.6 mg/dl (2.5-4.9) H 10/05/21 Total Bilirubin 0.5 mg/dl (0.2-1.0) 10/05/21 Direct Bilirubin 0.3 mg/dl (0-0.2) H 10/05/21 AST 1934 U/L (13-39) H 10/05/21 ALT 666 U/L (7-52) H 10/05/21 Alkaline Phosphatase 127 U/L (34-104) H 10/05/21 TP 4.2 gm/dl (6.0-8.3) L 10/05/21 Albumin 2.0 gm/dl (3.4-5.0) L 10/05/21 Globulin 2.2 gm/dl (2.5-4.0) L 10/05/21 Albumin/Globulin Ratio 0.9 (0.9-2) 10/05/21 Mg 2.3 mg/dl (1.7-2.4) 10/05/21 04:35 10/05/21 Calcium Level 6.6 mg/dl (8.5-10.1) L 10/05/21 04:35 10/05/21 Prothromb Time International Ratio 1.4 (0.9-1.1) H 10/05/21 04:35 10/05/21 Alexandr Test NA 10/05/21 04:05 10/05/21 Microbiology 10/04/21 20:22 Fungal Smear - Final Blood Diagnostic Findings (Past 24 Hours) Chest X-Ray 10/04/21 08:40 XR chest 1V portable CLINICAL HISTORY: Tachypnea. Follow-up bibasilar atelectasis. COMPARISON STUDY: 10/03/2021 TECHNIQUE: 1 view of the chest FINDINGS: Single frontal view of the chest demonstrates the heart to again be enlarged status post previous valve replacement. Permanent cardiac pacer is again seen. There has been continued decrease in bibasilar atelectasis. However, there is a small alveolar opacity at the right lung base which may relate to crowding of the bronchovascular markings. Again, follow-up PA and lateral radiographs would be helpful for further evaluation. There is no evidence for pleural effusion. There is no evidence for vascular congestion. There is no acute osseous pathology. IMPRESSION: While there has been interval improvement in bibasilar atelectasis. There is a small patchy alveolar opacity at the right lung base with follow-up recommended above. ACT 112: Negative or not required by law. Electronically signed by: Gonsalo Rehman M.D. 10/04/2021 9:01 AM Chest X-Ray 10/04/21 17:01 SINGLE VIEW CHEST CLINICAL HISTORY: Respiratory failure. FINDINGS: An AP, portable, semierect chest radiograph is compared to study performed earlier the same day 10/04/2021. The examination is degraded by portable technique and patient rotation. There are 2 catheters projecting below the diaphragm. A right internal jugular central venous catheter has been placed. The tip projects over the SVC. An enteric tube has been placed. A 2-lead cardiac pacemaker is unchanged in position. There is evidence of previous cardiac valve surgery. The heart is enlarged noting atherosclerotic calcification of the thoracic aorta. There is pulmonary vascular congestion. Bilateral airspace opacities are again noted. Trace pleural effusions are suspected. No pneumothorax is seen. The skeletal structures are osteopenic. The bony thorax is grossly intact. Surgical clips project over the right upper chest. IMPRESSION: 1. Line and tube placement cannot be adequately assessed due to patient rotation and positioning. 2. There are 2 catheters projecting below the diaphragm, one just below the gastroesophageal junction and the other over the left upper quadrant. Clinical correlation will be required. 3. Possible endotracheal tube placement. The tip is not visualized. 4. Cardiomegaly with evidence of congestive failure. 5. Bilateral airspace opacities likely represent pulmonary edema. Correlate clinically for evidence of a superimposed infectious/inflammatory pneumonitis. 6. No pneumothorax is identified following central venous catheter placement. ACT 112: Negative or not required by law. Electronically signed by: Jame Batres M.D. 10/04/2021 5:56 PM I & O Totals 24 Hours 10/03/21 10/04/21 10/05/21 06:59 06:59 06:59 Intake Total 2350 / 2350 2250 / 2250 4432.681 / 4432.681 Output Total 1152 / 1152 226 / 226 725 / 725 Balance 1198 / 1198 2023 3707.681 / 3707.681 Cumulative 10/01/21 12:37 thru 10/05/21 06:56 Intake Total 14857.681 Output Total 3253 Balance 7129.681 RT Ventilator Mngmt (Last Documented) Ventilator Ordered Settings Ventilator Support Mode Assist Control 10/05/21 04:00 Respiratory Rate 17 10/05/21 06:00 Ventilator Tidal Volume 400 10/05/21 04:00 Setting Minute Ventilation 6.2 10/05/21 03:40 Positive End Expiratory 5 10/05/21 04:00 Pressure Fraction of Inspired Oxygen 50 10/05/21 04:00 Machine Comment decreased FiO2 to 50% 10/04/21 21:10 Ventilator - PT Measurements Respiratory Rate 17 Exhaled Tidal Volume 457 Minute Ventilation 6.2 Peak Inspiratory Airway 17 Pressure Plateau Pressure 17 Respiratory Cycle Inspiratory: 1:3.7 Expiratory Ratio Inspiratory Phase Time 0.80 End-Tidal CO2 29 Static Lung Compliance 38.08 Dynamic Lung Compliance 38.08 Normal Static Lung Compliance 48.00 Resident Activity Tracking Resident Involvement: Resident Care Provided Care Provided: Adult Hospital Medicine (1) UTI (urinary tract infection) Hematuria presence: without hematuria Urinary tract infection type: acute cystitis Qualified Code(s): N30.00 - Acute cystitis without hematuria
--- NOTE | 2021-10-05 07:42 | XRay Report ---
XR chest 1V portable CLINICAL HISTORY: Follow-up bilateral airspace opacities. COMPARISON STUDY: Portable chest from 10/04/2021 TECHNIQUE: 1 view of the chest FINDINGS: Single frontal view of the chest demonstrates the heart to again be enlarged with permanent cardiac p acer in place. The tip of the endotracheal tube is approximately 5.3 cm above the keyonna. Enteric tub e extends into the gastric fundus. Right jugular catheter is also in place extending into the right a trium. Compared to previous examination, there is again evidence for central vascular congestion and mild pu lmonary edema. The lungs are clear of alveolar opacities. There is no evidence for pleural effusion. There is no acute osseous pathology. IMPRESSION: 1. Tubes and catheters are well seen on the current study and within anatomic position. 2. Mild central vascular congestion and evidence for pulmonary edema is again seen. ACT 112: Negative or not required by law. Electronically signed by: Gonsalo Rehman M.D. 10/05/2021 7:41 AM
[2021-10-05] MEDS: dilTIAZem HCL 240 MG CAPCR PO SCH (08:03)
[2021-10-05] MEDS: METOPROLOL SUCC 50MG EXT REL TAB PO SCH (08:03)
[2021-10-05] MEDS: FLUTICASONE/VILANTEROL 200/25MCG 14 PUFFS/INHALER INH SCH (08:03)
[2021-10-05] MEDS: UMECLIDINIUM BROMIDE 62.5MCG/BLISTER 7 PUFFS/INHALER INH SCH (08:04)
[2021-10-05] MEDS: PANTOprazole 40 MG in SYRINGE 0 ML IV SCH ×2 (08:08→21:11)
[2021-10-05] MEDS: INSULIN ASPART PER UNIT SC SCH ×4 (08:08→21:07)
--- NOTE | 2021-10-05 08:08 | Surgery Progress Note ---
Date of Service October 05, 2021 Assessment & Plan (1) C. difficile colitis: Plan: POD 1 subtotal colectomy febrile, WBC down to 43 PRP pending, UOP good minimal OG output-will continue for meds ok to start subQ heparin Admission and Anticipated Discharge Date Admission Date: October 01, 2021 Supervising Physician Co-Signing Physician Notes I personally saw and evaluated the patient with Xavier Keith PA-C and agree with the assessment and plan. 65-year-old female postoperative day 1 exploratory laparotomy subtotal colectomy and end ileostomy for C. difficile colitis She remained intubated and on low level pressors Will DC all antibiotics other than her Flagyl, no intraoperative spillage Continue IV fluids her urine output increased overnight We will continue to follow her clinical course Once extubated you could trial sips of clear liquids Subjective intubated & on Levo gtt, had BM overnight, temps 39->38 Physical Exam Gastrointestinal (Abdomen): Inspection/Auscultation: + abdominal surgical incision (dressing intact) Percussion/Palpation: abdomen soft scant bloody drainage from ileostomy UOP 625 overnight Results & Data ([facility]) Vital Signs (Past 12 Hours) Vital Signs Temp Pulse Resp BP Pulse Ox 10/05/21 06:00 38.7 C H 70 17 99 10/05/21 05:45 38.7 C H 69 17 99 10/05/21 05:30 38.7 C H 69 15 99 10/05/21 05:15 38.7 C H 70 16 100 10/05/21 05:00 38.7 C H 70 15 100 10/05/21 04:45 38.7 C H 70 14 100 10/05/21 04:30 38.7 C H 70 15 99 10/05/21 04:15 38.7 C H 69 15 99 10/05/21 04:00 38.7 C H 70 13 99 10/05/21 03:45 38.7 C H 70 18 99 10/05/21 03:40 69 18 99 10/05/21 03:30 38.7 C H 69 17 98 10/05/21 03:15 38.7 C H 72 15 99 10/05/21 03:00 38.7 C H 72 16 99 10/05/21 02:45 38.7 C H 73 16 99 10/05/21 02:30 38.7 C H 73 13 99 10/05/21 02:15 38.7 C H 73 13 98 10/05/21 02:00 38.9 C H 70 14 98 10/05/21 01:45 39.2 C H 74 17 100 10/05/21 01:30 39.2 C H 75 16 99 10/05/21 01:15 39.2 C H 75 15 99 10/05/21 01:00 39.2 C H 75 19 99 10/05/21 00:45 39.2 C H 78 16 99 10/05/21 00:30 39.2 C H 79 16 99 10/05/21 00:15 39.2 C H 80 16 98 10/05/21 00:00 39.2 C H 80 16 100 10/04/21 23:45 39.2 C H 79 18 98 10/04/21 23:30 39.2 C H 79 19 98 10/04/21 23:15 39.2 C H 79 21 99 10/04/21 23:01 39.2 C H 79 21 136/61 99 10/04/21 22:45 79 22 98 10/04/21 22:31 39.1 C H 139/65 10/04/21 22:15 39.1 C H 80 13 99 10/04/21 22:01 39.1 C H 78 20 143/65 H 98 10/04/21 21:45 39.1 C H 80 18 97 10/04/21 21:30 39.1 C H 82 22 146/65 H 98 10/04/21 21:15 39.1 C H 82 21 98 10/04/21 21:10 81 23 100 10/04/21 21:00 39 C H 82 22 98 10/04/21 20:45 39 C H 84 22 98 10/04/21 20:30 39 C H 83 21 141/71 H 98 10/04/21 20:15 39 C H 83 19 98 PG Care Time/CCT Total # of Minutes Spent Total Time Spent with Patient: Total time spent is greater than 50% in coordination of care (as documented) at patient's floor/unit and/or counseling patient: Coding Level of Care Code None Diagnoses C. difficile colitis A04.72
[2021-10-05] MEDS: INSULIN GLARGINE SOLOSTAR 100 UNITS/ML 3 ML PEN SC SCH ×2 (08:10→21:09)
--- NOTE | 2021-10-05 08:20 | Nephrology Progress Note ---
Date of Service October 05, 2021 Assessment & Plan (1) Acute on chronic renal failure: Plan: Baseline creatinine 1.5-1.8. Stage 2 ЮЛИЯ this am and likely to worsen before/if it stabilizes given her pressor dependence, fever, recent urgent surgery, colitis. Currently on broad antibacterial and fungal coverage in addition to medication for C diff -no urgent indication for HD though cannot rule out need; would need to clarify wishes w/ family (why do surgery or vent if at least trial of dialysis not a consideration) ; but hopeful she will not need it -cont strict I/O - borderline oliguria improved -cont pressor support as needed and half-normal saline with 75 mill equivalents per liter sodium bicarbonate at 100 ml/hr -transaminitis per primary service -recheck UA if labs worsen further -calcium corrects to 8.2; no need to replete Admission and Anticipated Discharge Date Admission Date: October 01, 2021 Subjective hoping to extubate later today; no longer oliguric; afebrle since MN; coming down on pressor; IVF rate down to 100 ml/hr this am; marked transaminitis noted/worsening Review of Systems Review of Systems: Unobtainable due to endotracheal tube Physical Exam Constitutional: well developed, well nourished and + mechanically ventilated; no acute distress Eyes: + anicteric sclerae ENMT: Ears: no external ear abnormality Nose: no external nose abnormality Mouth: + dry oral mucous membranes Neck: no nuchal rigidity Respiratory: normal respiratory effort Auscultation: + diminished lung sounds Cardiovascular: Rate/Rhythm: regular rate and regular rhythm Extremities: + abnormal capillary refill and no edema Gastrointestinal (Abdomen): Inspection/Auscultation: + hypoactive bowel sounds; + abdomen abnormal to inspection (ostomy and surg incision L side) Percussion/Palpation: abdomen soft; abdomen nontender and no guarding Musculoskeletal: Extremities: + abnormal strength Skin: no rashes, warm and dry Neurologic: opens eyes briefly; not folowing my commands Genitourinary: culp w/ scant rafat urine Results & Data ([facility]) Vital Signs (Past 12 Hours) Vital Signs Temp Pulse Resp BP Pulse Ox 10/05/21 06:00 38.7 C H 70 17 99 10/05/21 05:45 38.7 C H 69 17 99 10/05/21 05:30 38.7 C H 69 15 99 10/05/21 05:15 38.7 C H 70 16 100 10/05/21 05:00 38.7 C H 70 15 100 10/05/21 04:45 38.7 C H 70 14 100 10/05/21 04:30 38.7 C H 70 15 99 10/05/21 04:15 38.7 C H 69 15 99 10/05/21 04:00 38.7 C H 70 13 99 10/05/21 03:45 38.7 C H 70 18 99 10/05/21 03:40 69 18 99 10/05/21 03:30 38.7 C H 69 17 98 10/05/21 03:15 38.7 C H 72 15 99 10/05/21 03:00 38.7 C H 72 16 99 10/05/21 02:45 38.7 C H 73 16 99 10/05/21 02:30 38.7 C H 73 13 99 10/05/21 02:15 38.7 C H 73 13 98 10/05/21 02:00 38.9 C H 70 14 98 10/05/21 01:45 39.2 C H 74 17 100 10/05/21 01:30 39.2 C H 75 16 99 10/05/21 01:15 39.2 C H 75 15 99 10/05/21 01:00 39.2 C H 75 19 99 10/05/21 00:45 39.2 C H 78 16 99 10/05/21 00:30 39.2 C H 79 16 99 10/05/21 00:15 39.2 C H 80 16 98 10/05/21 00:00 39.2 C H 80 16 100 10/04/21 23:45 39.2 C H 79 18 98 10/04/21 23:30 39.2 C H 79 19 98 10/04/21 23:15 39.2 C H 79 21 99 10/04/21 23:01 39.2 C H 79 21 136/61 99 10/04/21 22:45 79 22 98 10/04/21 22:31 39.1 C H 139/65 10/04/21 22:15 39.1 C H 80 13 99 10/04/21 22:01 39.1 C H 78 20 143/65 H 98 10/04/21 21:45 39.1 C H 80 18 97 10/04/21 21:30 39.1 C H 82 22 146/65 H 98 10/04/21 21:15 39.1 C H 82 21 98 10/04/21 21:10 81 23 100 10/04/21 21:00 39 C H 82 22 98 10/04/21 20:45 39 C H 84 22 98 10/04/21 20:30 39 C H 83 21 141/71 H 98 Laboratory Results 10/05/21 04:35 10/05/21 04:35 Diagnostic Findings cxr 1. Tubes and catheters are well seen on the current study and within anatomic position. 2. Mild central vascular congestion and evidence for pulmonary edema is again seen.
[2021-10-05 08:40] LABS: Albumin Globulin Ratio 0.9 (0.9-2); BUN Creatinine Ratio 19.7 (10-20); Bilirubin Direct 0.3 mg/dl (0-0.2); Bilirubin,Total 0.5 mg/dl (0.2-1.0); Calcium 6.6 mg/dl (8.5-10.1); Creatinine Clr Calc Pharmacy 15.9 ml/min; Est GFR (African American) 14.9 ml/min; Est GFR (Non-African American) 12.9 ml/min; Globulin 2.2 gm/dl (2.5-4.0); Magnesium 2.3 mg/dl (1.7-2.4); Phosphorus 5.6 mg/dl (2.5-4.9); Potassium 4.7 mmol/L (3.5-5.1); Total Protein 4.2 gm/dl (6.0-8.3)
[2021-10-05] MEDS: NICOTINE 21 MG/24 HR TDSY TD SCH (08:57)
[2021-10-05] MEDS ORDERED: VENLAFAXINE HCL XR 37.5 MG CAPXR PO SCH (09:00)
[2021-10-05] MEDS ORDERED: CASPOFUNGIN 50 MG in SODIUM CHLORIDE 0.9% 250 ML IV SCH (09:00)
[2021-10-05] MEDS ORDERED: VENLAFAXINE HCL XR 75 MG CAPXR PO SCH (09:00)
--- NOTE | 2021-10-05 09:38 | Billing Data ---
Date of Service October 05, 2021 Coding Level of Care Code Critical Care 1st - mins
--- NOTE | 2021-10-05 10:20 | Cardiology Progress Note ---
Date of Service October 05, 2021 Assessment & Plan (1) Right heart failure: Plan: Chronic right heart failure, cor pulmonale physiology. (2) Chronic respiratory failure with hypoxia, on home O2 therapy: (3) C. difficile colitis: (4) Acute on chronic renal failure: (5) Paroxysmal atrial flutter: Plan: Patient is a complex 65-year-old female who underwent urgent/emergent abdominal surgery for C. difficile colitis not responsive to medical therapy. Patient critically ill with acute on chronic renal failure and currently intubated but relatively hemodynamically stable post surgery History is notable for paroxysmal atrial fibrillation flutter status post pacemaker insertion with prior very difficult issues with tachyarrhythmias with future anticipated plans for AV node node junction ablation Currently no further arrhythmias since admission. In the past she has required very high-dose medical therapies to manage atrial arrhythmias including digoxin diltiazem CD and metoprolol succinate. These medications appropriately on hold Recommendations: As hemodynamics improve wean Levophed and restart beta-mana IV with metoprolol 5 mg IV every 4 hours. We will hold digoxin until renal f unction stabilized. Hold diltiazem CD given extended release formation and current hemodynamics. Echocardiograms in the past have demonstrated hyperdynamic function and agree with volume replacement Appreciate nephrology input Admission and Anticipated Discharge Date Admission Date: October 01, 2021 Subjective Patient was seen and examined, chart, medications and, telemetry reviewed. Complex course noted yesterday with surgical colectomy. Patient currently sedated and intubated. Sedation is being reduced She remains on Levophed at low-dose but hemodynamically stable. No further arrhythmias with telemetry reflecting predominantly AV pacing. Review of Systems Review of Systems: Unobtainable due to endotracheal tube Physical Exam Constitutional: + ill appearing and + mechanically ventilated ENMT: Endotracheal tube in place Neck: trachea midline, no thyromegaly Respiratory: Mildly reduced respiratory sounds with coarse airway sounds consistent with ventilation no audible wheezing Cardiovascular: Rate/Rhythm: regular rate and regular rhythm Vessels: no JVD Extremities: no edema Gastrointestinal (Abdomen): Inspection/Auscultation: + abdominal surgical incision Results & Data ([facility]) Vital Signs (Past 12 Hours) Vital Signs Temp Temp Pulse Resp BP BP BP 10/05/21 09:00 38.2 C H 64 11 L 10/05/21 08:30 38.8 C H 71 12 10/05/21 08:00 38.8 C H 38.9 C H 75 13 125/47 L 139/64 10/05/21 07:30 74 19 10/05/21 07:15 73 18 10/05/21 07:00 38.9 C H 71 14 10/05/21 06:00 38.7 C H 70 17 10/05/21 05:45 38.7 C H 69 17 10/05/21 05:30 38.7 C H 69 15 10/05/21 05:15 38.7 C H 70 16 10/05/21 05:00 38.7 C H 70 15 10/05/21 04:45 38.7 C H 70 14 10/05/21 04:30 38.7 C H 70 15 10/05/21 04:15 38.7 C H 69 15 10/05/21 04:00 38.7 C H 70 13 10/05/21 03:45 38.7 C H 70 18 10/05/21 03:40 69 18 10/05/21 03:30 38.7 C H 69 17 10/05/21 03:15 38.7 C H 72 15 10/05/21 03:00 38.7 C H 72 16 10/05/21 02:45 38.7 C H 73 16 10/05/21 02:30 38.7 C H 73 13 10/05/21 02:15 38.7 C H 73 13 10/05/21 02:00 38.9 C H 70 14 10/05/21 01:45 39.2 C H 74 17 10/05/21 01:30 39.2 C H 75 16 10/05/21 01:15 39.2 C H 75 15 10/05/21 01:00 39.2 C H 75 19 10/05/21 00:45 39.2 C H 78 16 10/05/21 00:30 39.2 C H 79 16 10/05/21 00:15 39.2 C H 80 16 10/05/21 00:00 39.2 C H 80 16 10/04/21 23:45 39.2 C H 79 18 10/04/21 23:30 39.2 C H 79 19 10/04/21 23:15 39.2 C H 79 21 01/20/22 23:01 39.2 C H 79 21 136/61 10/04/21 22:45 79 22 10/04/21 22:31 39.1 C H 139/65 Pulse Ox Pulse Ox 10/05/21 09:00 100 10/05/21 08:30 100 10/05/21 08:00 99 99 10/05/21 07:30 99 10/05/21 07:15 100 10/05/21 07:00 100 10/05/21 06:00 99 10/05/21 05:45 99 10/05/21 05:30 99 10/05/21 05:15 100 10/05/21 05:00 100 10/05/21 04:45 100 10/05/21 04:30 99 10/05/21 04:15 99 10/05/21 04:00 99 10/05/21 03:45 99 10/05/21 03:40 99 10/05/21 03:30 98 10/05/21 03:15 99 10/05/21 03:00 99 10/05/21 02:45 99 10/05/21 02:30 99 10/05/21 02:15 98 10/05/21 02:00 98 10/05/21 01:45 100 10/05/21 01:30 99 10/05/21 01:15 99 10/05/21 01:00 99 10/05/21 00:45 99 10/05/21 00:30 99 10/05/21 00:15 98 10/05/21 00:00 100 10/04/21 23:45 98 10/04/21 23:30 98 10/04/21 23:15 99 10/04/21 23:01 99 10/04/21 22:45 98 10/04/21 22:31 Laboratory Results Laboratory Results - last 24 hr 10/04/21 10/04/21 10/04/21 11:02 12:58 15:10 WBC RBC Hgb Hct MCV MCH MCHC RDW Std Deviation RDW Coeff of King Plt Count MPV Immature Gran % (Auto) Neut % (Auto) Lymph % (Auto) [place] % (Auto) Eos % (Auto) Baso % (Auto) Neut # (Auto) Lymph # (Auto) [place] # (Auto) Eos # (Auto) Baso # (Auto) Immature Gran # (Auto) Toxic Vacuolation Echinocytes PT POC INR 2.9 H INR Sample Site POC pH POC pCO2 POC pO2 POC HCO3 POC Total CO2 POC Base Excess POC ABG O2 Sat Alexandr Test O2 Delivery Device POC O2 Rate Minute Ventilation POC FiO2 Tidal Volume PEEP Sodium Potassium Chloride Carbon Dioxide Anion Gap BUN Creatinine Est Cr Clr Drug Dosing Est GFR ( Amer) Est GFR (Non-Af Amer) BUN/Creatinine Ratio Glucose POC Glucose 202 H Calcium Phosphorus Magnesium Total Bilirubin Direct Bilirubin AST ALT Alkaline Phosphatase Troponin I Total Protein Albumin Globulin Albumin/Globulin Ratio Procalcitonin Nasal Screen MRSA (PCR) Negative Digoxin 10/04/21 10/04/21 10/04/21 15:33 15:35 16:08 WBC RBC Hgb Hct MCV MCH MCHC RDW Std Deviation RDW Coeff of King Plt Count MPV Immature Gran % (Auto) Neut % (Auto) Lymph % (Auto) [place] % (Auto) Eos % (Auto) Baso % (Auto) Neut # (Auto) Lymph # (Auto) [place] # (Auto) Eos # (Auto) Baso # (Auto) Immature Gran # (Auto) Toxic Vacuolation Echinocytes PT POC INR INR Sample Site Art Line POC pH 7.23 L POC pCO2 44 POC pO2 69 L POC HCO3 18 L POC Total CO2 20 L POC Base Excess -9.0 POC ABG O2 Sat 90.0 Alexandr Test NA O2 Delivery Device Ventilator POC O2 Rate 16 Minute Ventilation 8.0 POC FiO2 60 Tidal Volume 400 PEEP 5 Sodium Potassium Chloride Carbon Dioxide Anion Gap BUN Creatinine Est Cr Clr Drug Dosing Est GFR ( Amer) Est GFR (Non-Af Amer) BUN/Creatinine Ratio Glucose POC Glucose 155 H Calcium Phosphorus Magnesium Total Bilirubin Direct Bilirubin AST ALT Alkaline Phosphatase Troponin I 1.78 H* Total Protein Albumin Globulin Albumin/Globulin Ratio Procalcitonin Nasal Screen MRSA (PCR) Digoxin 10/04/21 10/04/21 10/04/21 20:22 20:22 20:22 WBC 38.46 H* D RBC 4.42 Hgb 13.6 D Hct 39.7 MCV 89.8 MCH 30.8 MCHC 34.3 RDW Std Deviation 44.4 RDW Coeff of King 13.4 Plt Count 242 MPV 10.8 H Immature Gran % (Auto) 3.7 Neut % (Auto) 87.0 Lymph % (Auto) 3.6 [place] % (Auto) 5.5 Eos % (Auto) 0.0 Baso % (Auto) 0.2 Neut # (Auto) 33.45 H Lymph # (Auto) 1.37 [place] # (Auto) 2.13 H Eos # (Auto) 0.01 Baso # (Auto) 0.08 Immature Gran # (Auto) 1.42 H Toxic Vacuolation 1+ Echinocytes 1+ PT POC INR INR Sample Site POC pH POC pCO2 POC pO2 POC HCO3 POC Total CO2 POC Base Excess POC ABG O2 Sat Alexandr Test O2 Delivery Device POC O2 Rate Minute Ventilation POC FiO2 Tidal Volume PEEP Sodium Cancelled Potassium Cancelled Chloride Cancelled Carbon Dioxide Cancelled Anion Gap Cancelled BUN Cancelled Creatinine Cancelled Est Cr Clr Drug Dosing Cancelled Est GFR ( Amer) Cancelled Est GFR (Non-Af Amer) Cancelled BUN/Creatinine Ratio Cancelled Glucose Cancelled POC Glucose Calcium Cancelled Phosphorus Magnesium Total Bilirubin Direct Bilirubin AST ALT Alkaline Phosphatase Troponin I Total Protein Albumin Globulin Albumin/Globulin Ratio Procalcitonin Nasal Screen MRSA (PCR) Digoxin 1.4 10/04/21 10/04/21 10/04/21 20:22 20:22 20:23 WBC RBC Hgb Hct MCV MCH MCHC RDW Std Deviation RDW Coeff of King Plt Count MPV Immature Gran % (Auto) Neut % (Auto) Lymph % (Auto) [place] % (Auto) Eos % (Auto) Baso % (Auto) Neut # (Auto) Lymph # (Auto) [place] # (Auto) Eos # (Auto) Baso # (Auto) Immature Gran # (Auto) Toxic Vacuolation Echinocytes PT 14.5 H POC INR INR 1.5 H Sample Site POC pH POC pCO2 POC pO2 POC HCO3 POC Total CO2 POC Base Excess POC ABG O2 Sat Alexandr Test O2 Delivery Device POC O2 Rate Minute Ventilation POC FiO2 Tidal Volume PEEP Sodium 136 Potassium 5.4 H Chloride 107 Carbon Dioxide 18 L Anion Gap 11 BUN 66 H Creatinine 3.52 H D Est Cr Clr Drug Dosing 16.0 Est GFR ( Amer) 15.1 Est GFR (Non-Af Amer) 13.0 BUN/Creatinine Ratio 18.8 Glucose 178 H POC Glucose 176 H Calcium 6.8 L Phosphorus 6.0 H Magnesium 2.3 Total Bilirubin Direct Bilirubin AST ALT Alkaline Phosphatase Troponin I Total Protein Albumin Globulin Albumin/Globulin Ratio Procalcitonin Nasal Screen MRSA (PCR) Digoxin 10/04/21 10/04/2122 20:57 23:55 04:00 WBC RBC Hgb Hct MCV MCH MCHC RDW Std Deviation RDW Coeff of King Plt Count MPV Immature Gran % (Auto) Neut % (Auto) Lymph % (Auto) [place] % (Auto) Eos % (Auto) Baso % (Auto) Neut # (Auto) Lymph # (Auto) [place] # (Auto) Eos # (Auto) Baso # (Auto) Immature Gran # (Auto) Toxic Vacuolation Echinocytes PT POC INR INR Sample Site Art Line POC pH 7.29 L POC pCO2 37 POC pO2 74 L POC HCO3 18 L POC Total CO2 19 L POC Base Excess -9.0 POC ABG O2 Sat 93.0 Alexandr Test NA O2 Delivery Device Ventilator POC O2 Rate 16 Minute Ventilation POC FiO2 50 Tidal Volume 400 PEEP 5 Sodium Potassium Chloride Carbon Dioxide Anion Gap BUN Creatinine Est Cr Clr Drug Dosing Est GFR ( Amer) Est GFR (Non-Af Amer) BUN/Creatinine Ratio Glucose POC Glucose 167 H 172 H Calcium Phosphorus Magnesium Total Bilirubin Direct Bilirubin AST ALT Alkaline Phosphatase Troponin I Total Protein Albumin Globulin Albumin/Globulin Ratio Procalcitonin Nasal Screen MRSA (PCR) Digoxin 10/05/21 10/05/21 10/05/21 04:05 04:35 04:35 WBC 43.10 H* RBC 4.79 Hgb 14.9 Hct 43.0 MCV 89.8 MCH 31.1 MCHC 34.7 RDW Std Deviation 44.3 RDW Coeff of King 13.5 Plt Count 221 MPV 11.1 H Immature Gran % (Auto) 4.3 Neut % (Auto) 88.8 Lymph % (Auto) 3.5 [place] % (Auto) 3.1 Eos % (Auto) 0.0 Baso % (Auto) 0.3 Neut # (Auto) 38.27 H Lymph # (Auto) 1.53 [place] # (Auto) 1.32 H Eos # (Auto) 0.00 Baso # (Auto) 0.14 Immature Gran # (Auto) 1.84 H Toxic Vacuolation 1+ Echinocytes PT 14.0 H POC INR INR 1.4 H Sample Site Art Line POC pH 7.31 L POC pCO2 39 POC pO2 72 L POC HCO3 19 POC Total CO2 20 L POC Base Excess -7.0 POC ABG O2 Sat 93.0 Alexandr Test NA O2 Delivery Device Ventilator POC O2 Rate 16 Minute Ventilation 9 POC FiO2 50 Tidal Volume 400 PEEP 5 Sodium Potassium Chloride Carbon Dioxide Anion Gap BUN Creatinine Est Cr Clr Drug Dosing Est GFR ( Amer) Est GFR (Non-Af Amer) BUN/Creatinine Ratio Glucose POC Glucose Calcium Phosphorus Magnesium Total Bilirubin Direct Bilirubin AST ALT Alkaline Phosphatase Troponin I Total Protein Albumin Globulin Albumin/Globulin Ratio Procalcitonin Nasal Screen MRSA (PCR) Digoxin 10/05/21 10/05/21 10/05/21 04:35 04:35 07:40 WBC RBC Hgb Hct MCV MCH MCHC RDW Std Deviation RDW Coeff of King Plt Count MPV Immature Gran % (Auto) Neut % (Auto) Lymph % (Auto) [place] % (Auto) Eos % (Auto) Baso % (Auto) Neut # (Auto) Lymph # (Auto) [place] # (Auto) Eos # (Auto) Baso # (Auto) Immature Gran # (Auto) Toxic Vacuolation Echinocytes PT POC INR INR Sample Site POC pH POC pCO2 POC pO2 POC HCO3 POC Total CO2 POC Base Excess POC ABG O2 Sat Alexandr Test O2 Delivery Device POC O2 Rate Minute Ventilation POC FiO2 Tidal Volume PEEP Sodium 133 L Potassium 4.7 Chloride 104 Carbon Dioxide 21 Anion Gap 8 BUN 70 H Creatinine 3.55 H Est Cr Clr Drug Dosing 15.9 Est GFR ( Amer) 14.9 Est GFR (Non-Af Amer) 12.9 BUN/Creatinine Ratio 19.7 Glucose 162 H POC Glucose 151 H Calcium 6.6 L Phosphorus 5.6 H Magnesium 2.3 Total Bilirubin 0.5 Direct Bilirubin 0.3 H AST 1934 H ALT 666 H Alkaline Phosphatase 127 H Troponin I Total Protein 4.2 L D Albumin 2.0 L Globulin 2.2 L Albumin/Globulin Ratio 0.9 Procalcitonin 45.08 H Nasal Screen MRSA (PCR) Digoxin
--- NOTE | 2021-10-05 11:28 | Hospitalist Progress Note ---
Date of Service October 05, 2021 Assessment & Plan (1) Colitis: (2) UTI (urinary tract infection): (3) Abdominal pain: Plan: Fulminant C. 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 Pericolonic inflammatory changes are present in the findings are characteristic of an infectious versus inflammatory colitis. Pt was recently discharged on antibiotics for UTI, was having diarrhea for 3-4 days prior to presentation which stopped on the day of arrival Was on empirical po vancomycin due to recent antibiotics use due to concern for c diff Initially had no BM after admission On 10/03/21, patient had abd distention, worsening leukocytosis and renal function. Repeat scan showed worsening pancolitis. BM on 10/03/21 confirmed c diff infection Had subtotal colectomy with ileostomy yesterday WBC is 43K today Wean off levophed Currently off sedation. Plan to possibly extubate per ICU team Critical care recommendations noted UTI: Got antibiotics Urine culture 09/27/21 + Klebsiella > 100k - continue IV rocephin Mild hyponatremia Acute on Chronic CKD 3 baseline cr ~ 1.4-1.6 Cr continue to increase. Now 3.55 today Monitor renal function Monitor IVF in view of +fluid balance Rumper on board Atrial fibrillation: Diastolic CHF, chronic: Chronic cor pulmonale: Hypertension: PO cardizem and metoprolol currently held Insole Stiffener on board Continue to hold digoxin May do iv lopressor as needed when off levophed per cards rec Chronic respiratory failure with hypoxia, on home oxygen therapy: Chronic obstructive pulmonary disease: Uses 2L chronically, smokes half pack per day x42 years Negative COVID on admission DM type 2 (diabetes mellitus, type 2): Glycemic control per protocol Transaminitis Monitor LFT DVt ppx: Eliquis on hold PCP: Briseida Dispo: remains hospitalized, not medically stable DNR/DNI Admission and Anticipated Discharge Date Admission Date: October 01, 2021 Subjective 65-year-old female with hx of A. fib on Eliquis, chronic diastolic CHF, Hypertension, status post mitral valve repair in 2004, chronic cor pulmonale, chronic hyponatremia, COPD (current smoker, 1/2 PPD since 42 yrs), CKD stage III, hypothyroidism, history of DVT in left hand and left leg, DM type II, bipolar, depression, anxiety, COVID infection in September 2020 who presented on 10/01/21 with worsening lower belly pain and diarrhea for 3-4 days. Found to have C diff pancolitis On 10/03/21, patient was noted to have abd distention, worsening leukocytosis and renal function. Repeat scan showed worsening pancolitis/distention. S/p subtotal colectomy with ileostomy on 10/04/21 for toxic megacolon/fulminant c diff Patient seen and examined this morning. Remains intubated in ICU Off sedation, opens eye to call but does not follow commands Review of Systems Review of Systems: Unobtainable due to endotracheal tube Physical Exam Constitutional: Intubated Eyes: Opens eyes to call ENMT: ETT and OGT in situ Respiratory: ETT in situ, on ventilatory support, clear to auscultation bilaterally Cardiovascular: RRR S1 S2 Gastrointestinal (Abdomen): Clean dressing over lap site Ileostomy with bag in situ Neurologic: Intubated. Limited exam Genitourinary: Sinclair in situ Results & Data Results & Data ([facility]) Vital Signs (Past 12 Hours) Vital Signs Temp Temp Pulse Resp BP BP Pulse Ox 10/05/21 10:40 60 12 94 10/05/21 09:00 38.2 C H 64 11 L 100 10/05/21 08:30 38.8 C H 71 12 100 10/05/21 08:00 38.8 C H 38.9 C H 75 13 125/47 L 139/64 99 10/05/21 07:30 74 19 99 10/05/21 07:15 73 18 100 10/05/21 07:00 38.9 C H 71 14 100 10/05/21 06:00 38.7 C H 70 17 99 10/05/21 05:45 38.7 C H 69 17 99 10/05/21 05:30 38.7 C H 69 15 99 10/05/21 05:15 38.7 C H 70 16 100 10/05/21 05:00 38.7 C H 70 15 100 10/05/21 04:45 38.7 C H 70 14 100 10/05/21 04:30 38.7 C H 70 15 99 10/05/21 04:15 38.7 C H 69 15 99 10/05/21 04:00 38.7 C H 70 13 99 10/05/21 03:45 38.7 C H 70 18 99 10/05/21 03:40 69 18 99 10/05/21 03:30 38.7 C H 69 17 98 10/05/21 03:15 38.7 C H 72 15 99 10/05/21 03:00 38.7 C H 72 16 99 10/05/21 02:45 38.7 C H 73 16 99 10/05/21 02:30 38.7 C H 73 13 99 10/05/21 02:15 38.7 C H 73 13 98 10/05/21 02:00 38.9 C H 70 14 98 10/05/21 01:45 39.2 C H 74 17 100 10/05/21 01:30 39.2 C H 75 16 99 10/05/21 01:15 39.2 C H 75 15 99 10/05/21 01:00 39.2 C H 75 19 99 10/05/21 00:45 39.2 C H 78 16 99 10/05/21 00:30 39.2 C H 79 16 99 10/05/21 00:15 39.2 C H 80 16 98 10/05/21 00:00 39.2 C H 80 16 100 10/04/21 23:45 39.2 C H 79 18 98 10/04/21 23:30 39.2 C H 79 19 98 Pulse Ox 10/05/21 10:40 10/05/21 09:00 10/05/21 08:30 10/05/21 08:00 99 10/05/21 07:30 10/05/21 07:15 10/05/21 07:00 10/05/21 06:00 10/05/21 05:45 10/05/21 05:30 10/05/21 05:15 10/05/21 05:00 10/05/21 04:45 10/05/21 04:30 10/05/21 04:15 10/05/21 04:00 10/05/21 03:45 10/05/21 03:40 10/05/21 03:30 10/05/21 03:15 10/05/21 03:00 10/05/21 02:45 10/05/21 02:30 10/05/21 02:15 10/05/21 02:00 10/05/21 01:45 10/05/21 01:30 10/05/21 01:15 10/05/21 01:00 10/05/21 00:45 10/05/21 00:30 10/05/21 00:15 10/05/21 00:00 10/04/21 23:45 10/04/21 23:30 Laboratory Results Abnormal lab results 10/04/21 10/04/21 10/04/21 Range/Units 15:33 15:35 16:08 WBC (4.8-10.8) K/uL MPV (7.4-10.4) fL Neut # (Auto) (1.4-6.5) K/uL [place] # (Auto) (0.11-0.59) K/uL Immature Gran # (Auto) (0.00-0.02) K/uL PT (9.0-12.0) Seconds INR (0.9-1.1) POC pH 7.23 L (7.35-7.45) POC pO2 69 L (80-95) mmHg POC HCO3 18 L (19-24) tacos/L POC Total CO2 20 L (24-31) mmol/L Sodium (136-145) mmol/L Potassium (3.5-5.1) mmol/L Carbon Dioxide (21-32) mmol/L BUN (6-23) mg/dl Creatinine (0.6-1.2) mg/dl Glucose (70-99(Fasting)) mg/dl POC Glucose 155 H (70-99) mg/dl Calcium (8.5-10.1) mg/dl Phosphorus (2.5-4.9) mg/dl Direct Bilirubin (0-0.2) mg/dl AST (13-39) U/L ALT (7-52) U/L Alkaline Phosphatase (34-104) U/L Troponin I 1.78 H* (0-0.04) ng/ml Total Protein (6.0-8.3) gm/dl Albumin (3.4-5.0) gm/dl Globulin (2.5-4.0) gm/dl Procalcitonin (0-0.5) ng/ml 10/04/21 10/04/21 10/04/21 Range/Units 20:22 20:22 20:22 WBC 38.46 H* D (4.8-10.8) K/uL MPV 10.8 H (7.4-10.4) fL Neut # (Auto) 33.45 H (1.4-6.5) K/uL [place] # (Auto) 2.13 H (0.11-0.59) K/uL Immature Gran # (Auto) 1.42 H (0.00-0.02) K/uL PT 14.5 H (9.0-12.0) Seconds INR 1.5 H (0.9-1.1) POC pH (7.35-7.45) POC pO2 (80-95) mmHg POC HCO3 (19-24) tacos/L POC Total CO2 (24-31) mmol/L Sodium (136-145) mmol/L Potassium 5.4 H (3.5-5.1) mmol/L Carbon Dioxide 18 L (21-32) mmol/L BUN 66 H (6-23) mg/dl Creatinine 3.52 H D (0.6-1.2) mg/dl Glucose 178 H (70-99(Fasting)) mg/dl POC Glucose (70-99) mg/dl Calcium 6.8 L (8.5-10.1) mg/dl Phosphorus 6.0 H (2.5-4.9) mg/dl Direct Bilirubin (0-0.2) mg/dl AST (13-39) U/L ALT (7-52) U/L Alkaline Phosphatase (34-104) U/L Troponin I (0-0.04) ng/ml Total Protein (6.0-8.3) gm/dl Albumin (3.4-5.0) gm/dl Globulin (2.5-4.0) gm/dl Procalcitonin (0-0.5) ng/ml 10/04/21 10/04/21 10/04/21 Range/Units 20:23 20:57 23:55 WBC (4.8-10.8) K/uL MPV (7.4-10.4) fL Neut # (Auto) (1.4-6.5) K/uL [place] # (Auto) (0.11-0.59) K/uL Immature Gran # (Auto) (0.00-0.02) K/uL PT (9.0-12.0) Seconds INR (0.9-1.1) POC pH 7.29 L (7.35-7.45) POC pO2 74 L (80-95) mmHg POC HCO3 18 L (19-24) tacos/L POC Total CO2 19 L (24-31) mmol/L Sodium (136-145) mmol/L Potassium (3.5-5.1) mmol/L Carbon Dioxide (21-32) mmol/L BUN (6-23) mg/dl Creatinine (0.6-1.2) mg/dl Glucose (70-99(Fasting)) mg/dl POC Glucose 176 H 167 H (70-99) mg/dl Calcium (8.5-10.1) mg/dl Phosphorus (2.5-4.9) mg/dl Direct Bilirubin (0-0.2) mg/dl AST (13-39) U/L ALT (7-52) U/L Alkaline Phosphatase (34-104) U/L Troponin I (0-0.04) ng/ml Total Protein (6.0-8.3) gm/dl Albumin (3.4-5.0) gm/dl Globulin (2.5-4.0) gm/dl Procalcitonin (0-0.5) ng/ml 10/05/21 10/05/21 10/05/21 Range/Units 04:00 04:05 04:35 WBC 43.10 H* (4.8-10.8) K/uL MPV 11.1 H (7.4-10.4) fL Neut # (Auto) 38.27 H (1.4-6.5) K/uL [place] # (Auto) 1.32 H (0.11-0.59) K/uL Immature Gran # (Auto) 1.84 H (0.00-0.02) K/uL PT (9.0-12.0) Seconds INR (0.9-1.1) POC pH 7.31 L (7.35-7.45) POC pO2 72 L (80-95) mmHg POC HCO3 (19-24) tacos/L POC Total CO2 20 L (24-31) mmol/L Sodium (136-145) mmol/L Potassium (3.5-5.1) mmol/L Carbon Dioxide (21-32) mmol/L BUN (6-23) mg/dl Creatinine (0.6-1.2) mg/dl Glucose (70-99(Fasting)) mg/dl POC Glucose 172 H (70-99) mg/dl Calcium (8.5-10.1) mg/dl Phosphorus (2.5-4.9) mg/dl Direct Bilirubin (0-0.2) mg/dl AST (13-39) U/L ALT (7-52) U/L Alkaline Phosphatase (34-104) U/L Troponin I (0-0.04) ng/ml Total Protein (6.0-8.3) gm/dl Albumin (3.4-5.0) gm/dl Globulin (2.5-4.0) gm/dl Procalcitonin (0-0.5) ng/ml 10/05/21 10/05/21 10/05/21 Range/Units 04:35 04:35 04:35 WBC (4.8-10.8) K/uL MPV (7.4-10.4) fL Neut # (Auto) (1.4-6.5) K/uL [place] # (Auto) (0.11-0.59) K/uL Immature Gran # (Auto) (0.00-0.02) K/uL PT 14.0 H (9.0-12.0) Seconds INR 1.4 H (0.9-1.1) POC pH (7.35-7.45) POC pO2 (80-95) mmHg POC HCO3 (19-24) tacos/L POC Total CO2 (24-31) mmol/L Sodium 133 L (136-145) mmol/L Potassium (3.5-5.1) mmol/L Carbon Dioxide (21-32) mmol/L BUN 70 H (6-23) mg/dl Creatinine 3.55 H (0.6-1.2) mg/dl Glucose 162 H (70-99(Fasting)) mg/dl POC Glucose (70-99) mg/dl Calcium 6.6 L (8.5-10.1) mg/dl Phosphorus 5.6 H (2.5-4.9) mg/dl Direct Bilirubin 0.3 H (0-0.2) mg/dl AST 1934 H (13-39) U/L ALT 666 H (7-52) U/L Alkaline Phosphatase 127 H (34-104) U/L Troponin I (0-0.04) ng/ml Total Protein 4.2 L D (6.0-8.3) gm/dl Albumin 2.0 L (3.4-5.0) gm/dl Globulin 2.2 L (2.5-4.0) gm/dl Procalcitonin 45.08 H (0-0.5) ng/ml 10/05/21 10/05/21 Range/Units 07:40 11:00 WBC (4.8-10.8) K/uL MPV (7.4-10.4) fL Neut # (Auto) (1.4-6.5) K/uL [place] # (Auto) (0.11-0.59) K/uL Immature Gran # (Auto) (0.00-0.02) K/uL PT (9.0-12.0) Seconds INR (0.9-1.1) POC pH (7.35-7.45) POC pO2 (80-95) mmHg POC HCO3 (19-24) tacos/L POC Total CO2 (24-31) mmol/L Sodium (136-145) mmol/L Potassium (3.5-5.1) mmol/L Carbon Dioxide (21-32) mmol/L BUN (6-23) mg/dl Creatinine (0.6-1.2) mg/dl Glucose (70-99(Fasting)) mg/dl POC Glucose 151 H 166 H (70-99) mg/dl Calcium (8.5-10.1) mg/dl Phosphorus (2.5-4.9) mg/dl Direct Bilirubin (0-0.2) mg/dl AST (13-39) U/L ALT (7-52) U/L Alkaline Phosphatase (34-104) U/L Troponin I (0-0.04) ng/ml Total Protein (6.0-8.3) gm/dl Albumin (3.4-5.0) gm/dl Globulin (2.5-4.0) gm/dl Procalcitonin (0-0.5) ng/ml (1) UTI (urinary tract infection) Hematuria presence: without hematuria Urinary tract infection type: acute cystitis Qualified Code(s): N30.00 - Acute cystitis without hematuria (2) Abdominal pain Abdominal location: lower abdomen, unspecified Qualified Code(s): R10.30 - Lower abdominal pain, unspecified
[2021-10-05 12:34] VITALS: BP 104/53
--- NOTE | 2021-10-05 15:25 | Electrocardiogram Report ---
Test Reason : Blood Pressure : / mmHG Vent. Rate : 096 BPM Atrial Rate : 153 BPM P-R Int : 000 ms QRS Dur : 136 ms QT Int : 364 ms P-R-T Axes : 000 113 -09 degrees QTc Int : 459 ms Probable Accelerated Junctional rhythm Right bundle branch block Left posterior fascicular block Bifascicular block Possible Septal infarct , age undetermined T wave abnormality, consider inferior ischemia Abnormal ECG When compared with ECG of 01-OCT-2021 13:16, Accelerated Junctional rhythm has replaced Electronic atrial pacemaker Vent. rate has increased BY 36 BPM Confirmed by Scott Judge ([id number]) on 10/05/2021 3:25:06 PM Referred By: REFERRED SELF Confirmed By:Scott Judge
[2021-10-05] MEDS: FLUTICASONE PROPIONATE NA SPR 16 GM BTL SCH (21:08)
[2021-10-06] MEDS: INSULIN ASPART PER UNIT SC SCH ×4 (01:36→13:06)
[2021-10-06] MEDS: SODIUM BICARBONATE 8.4% 75 MEQ in SODIUM CHLORIDE 0.45 % 1,000 ML IV SCH ×2 (01:37→08:45)
[2021-10-06] MEDS: VANCOMYCIN HCL 125 MG/2.5ML SOLN PO SCH ×3 (01:38→13:06)
[2021-10-06] MEDS: RASPBERRY SYRUP 5 ML UDP PO SCH ×3 (01:38→13:06)
[2021-10-06] MEDS: NOREPINEPHRINE/D5W 8 MG/508 ML BAG IV SCH ×2 (02:20→13:07)
[2021-10-06] MEDS: metroNIDAZOLE 500 MG/100 ML BAG IV SCH (06:12)
[2021-10-06 06:25] LABS: INR 1.5 (0.9-1.1); Partial Thromboplastin Ratio 1.5; Partial Thromboplastin Time 40.2 Seconds (21.0-31.0); Prothrombin Time 14.8 Seconds (9.0-12.0)
[2021-10-06 06:34] LABS: BUN Creatinine Ratio 24.7 (10-20); Calcium 6.2 mg/dl (8.5-10.1); Creatinine Clr Calc Pharmacy 17.2 ml/min; Est GFR (African American) 16.4 ml/min; Est GFR (Non-African American) 14.2 ml/min; Potassium 4.9 mmol/L (3.5-5.1)
[2021-10-06 06:40] LABS: Hematocrit (blood only) 42.9 % (37-47); Hemoglobin 14.4 g/dL (12.0-16.0); Mean Corpuscular Hemoglobin 30.3 pg (25-34); Mean Corpuscular Hgb Conc 33.6 g/dL (32-36); Mean Corpuscular Volume 90.3 fL (80-100); Mean Platelet Volume 11.2 fL (7.4-10.4); Nucleated RBC # (auto) 0.12 K/uL (0-0); Nucleated RBC % (auto) 0.2 %; Platelet Count 201 K/uL (130-400); RDW Standard Deviation 46.5 fL (36.4-46.3); Red Blood Count 4.75 M/uL (4.2-5.4); White Blood Count 50.57 K/uL (4.8-10.8)
[2021-10-06 06:48] LABS: Albumin Globulin Ratio 0.8 (0.9-2); Bilirubin,Total 0.7 mg/dl (0.2-1.0); Globulin 2.6 gm/dl (2.5-4.0); Magnesium 2.3 mg/dl (1.7-2.4); Phosphorus 7.3 mg/dl (2.5-4.9); Total Protein 4.6 gm/dl (6.0-8.3)
--- NOTE | 2021-10-06 06:58 | Critical Care Progress Note ---
Date of Service October 06, 2021 Assessment & Plan (1) Junctional tachycardia: (2) Right heart failure: (3) Chronic respiratory failure with hypoxia, on home O2 therapy: (4) UTI (urinary tract infection): (5) C. difficile colitis: (6) Chronic kidney disease: (7) Acute on chronic diastolic CHF (congestive heart failure): (8) GERD (gastroesophageal reflux disease): (9) Hyperlipidemia: (10) Anxiety: (11) Depression: Plan: Reason Critically Ill: 65-year-old female with PMH of A. fib on Eliquis, chronic diastolic CHF, HTN, HLD, status post mitral valve repair in 2004, chronic cor pulmonale, chronic hyponatremia, COPD (current smoker), CKD stage III, hypo thyroidism, history of DVT in left hand and left leg, DM type II, bipolar, depression, anxiety, and COVID infection in September 2020, here with c.difficile colitis s/p subtotal colectomy with end ileostomy creation, acute on chronic renal failure, and mechanically ventilated after her surgical procedure. Extubated 10/05/21. Neuro CAM ICU: UNABLE TO ASSESS Sedation now discontinued and patient extubated. Responds somewhat to verbal stimuli but does not follow commands. Cardiac A.fib -- home Cardizem and metoprolol succinate on hold. Requiring Levophed for pressure support in the setting of mechanical vent/sedation. Cardiology recommending continue Cardizem hold, digoxin hold due to kidney function, metoprolol on hold. Once Levophed weaned can restart MTP tartrate IV. Chronic right heart failure -- secondary to COPD. Meds as above. Now 7L positive with continued IVF for sepsis related to colitis. Respiratory Extubated 10/05/21. Saturating adequately on 8L oxymask today. She has underlying O2-dependent COPD on 2L NC at home. Once patient more alert plan to continue home inhaler regimen. GI C. diff colitis -- on oral vancomycin and IV metronidazole. Now s/p subtotal colectomy with end ileostomy creation by general surgery. Morphine prn for abd pain. Worsening transaminitis today -- monitor closely NPO currently. Advance diet as cognitive status improves. Protonix 40mg IV BID. Renal/Electrolytes Acute on chronic renal failure -- creatinine continues to worsen. Nephrology following. She had Sinclair placed 10/03/21 due to urinary retention. 7L positive throughout admission. Discussion held with granddaughter about the possibility of dialysis and she believes her grandmother would not want aggressive measures taken. She believes dialysis would be considered an aggressive treatment by her grandmother. Sodium bicarb 75mEq at 100cc/h Continue this -- consider diuresis within next 12-24 hours. Monitor e-lytes, replete as needed. Sinclair in place Endo ICU hyperglycemia protocol Heme Stable H&H. Monitor daily ID Sepsis 2/2 c.diff colitis -- as above, now s/p colectomy and end ileostomy creation. Continue PO Vanc and IV Flagyl. White count increased back to 50K. Continues with cyclical fevers. Uncomplicated UTI -- urine culture with pansensitive Klebsiella. Treated with ceftriaxone since 10/02/2021, completed 3-day course. Blood cultures NGTD and fungal culture pending Monitor fever curve. Lines/IV Access - PIVs intact. DVT Prophylaxis Hold on chemoprophylaxis for 24 hours postsurgery. Thank you for allowing us to be part of this patient's care. Please refer to Dr. Cornejo's documentation for any further recommendations. Admission and Anticipated Discharge Date Admission Date: October 01, 2021 Supervising Physician Co-Signing Physician Notes Dr. Byers was resident physician during care of patient. I separately evaluated patient for herrera portions of the history and the exam. I was present during the critical portion of medical decision making, and I discussed the case with the resident. I generally agree with the findings and plan. Patient was liberated from ventilator yesterday weaned off Levophed. Hopeful that the patient's renal function has nadired and will start to improve. Morphine as needed for abdominal pain, should be having decreasing efficacy of thoracic block. Continue with IV Flagyl and p.o. vancomycin at this time. Continue with current IV fluids would consider diuresis in next 12 to 24 hours. Patient's condition critical I have personally spent 45 minutes of critical care time in the direct management of this patient. This is a life/limb threatening event. This includes time spent evaluating patient, direct bedside care, chart review, placing orders, interpretation of diagnostic studies, discussion with consultants, patient, and/or family members regarding treatment decisions, as well as other required patient management activities. This time is exclusive of all separately billable procedures, and teaching time and separate from and in addition to any other critical care service time. Subjective No acute events overnight. Mumbles when her name is called out but quickly falls back asleep, not following simple commands. Review of Systems Review of Systems: Unobtainable due to reduced consciousness Physical Exam Physical Exam: GENERAL: Somnolent, minimally responsive to verbal stimuli CHEST/LUNGS: CTAB A/P. No crackles, wheezes, rales, rhonchi. HEART: RRR. No m/g/r. No carotid bruits. ABDOMEN: ND, soft. Ileostomy in place c/d/i EXTREMITIES: No cyanosis, no clubbing, no edema SKIN: Warm and dry. No rashes or lesions. Results & Data Results & Data ([facility]) Vital Signs (Past 12 Hours) Vital Signs Temp Pulse Resp Pulse Ox 10/06/21 06:15 77 17 91 10/06/21 06:00 76 16 93 10/06/21 05:45 75 16 92 10/06/21 05:30 74 15 93 10/06/21 05:15 73 14 92 10/06/21 05:00 74 16 96 10/06/21 04:45 74 15 93 10/06/21 04:30 37.2 C 74 16 94 10/06/21 04:15 76 17 94 10/06/21 04:05 93 H 26 H 91 10/06/21 04:00 76 16 10/06/21 03:45 77 15 94 10/06/21 03:30 79 16 93 10/06/21 03:15 79 0 L 94 10/06/21 03:00 81 15 94 10/06/21 02:45 81 12 94 10/06/21 02:30 81 12 94 10/06/21 02:15 37.2 C 80 15 92 10/06/21 02:00 81 13 92 10/06/21 01:00 38.1 C H 78 13 91 10/06/21 00:00 73 15 10/05/21 23:21 83 24 91 10/05/21 23:00 38.1 C H 69 14 10/05/21 22:00 68 14 88 L 10/05/21 21:00 38.1 C H 73 21 88 L 10/05/21 20:17 83 22 91 10/05/21 20:00 79 21 91 10/05/21 19:00 38.1 C H 83 19 90 Critical Care Results & Data Vital Signs (Past 12 Hours) Vital Signs Temp Pulse Resp Pulse Ox 10/06/21 06:15 77 17 91 10/06/21 06:00 76 16 93 10/06/21 05:45 75 16 92 10/06/21 05:30 74 15 93 10/06/21 05:15 73 14 92 10/06/21 05:00 74 16 96 10/06/21 04:45 74 15 93 10/06/21 04:30 37.2 C 74 16 94 10/06/21 04:15 76 17 94 10/06/21 04:05 93 H 26 H 91 10/06/21 04:00 76 16 10/06/21 03:45 77 15 94 10/06/21 03:30 79 16 93 10/06/21 03:15 79 0 L 94 10/06/21 03:00 81 15 94 10/06/21 02:45 81 12 94 10/06/21 02:30 81 12 94 10/06/21 02:15 37.2 C 80 15 92 10/06/21 02:00 81 13 92 10/06/21 01:00 38.1 C H 78 13 91 10/06/21 00:00 73 15 10/05/21 23:21 83 24 91 10/05/21 23:00 38.1 C H 69 14 10/05/21 22:00 68 14 88 L 10/05/21 21:00 38.1 C H 73 21 88 L Lab & Micro Results (Past 24 Hours) RBC 4.75 M/uL (4.2-5.4) 10/06/21 WBC 50.57 K/uL (4.8-10.8) H* 10/06/21 Hgb 14.4 g/dL (12.0-16.0) 10/06/21 Hct 42.9 % (37-47) 10/06/21 MCV 90.3 fL (80-100) 10/06/21 MCH 30.3 pg (25-34) 10/06/21 MCHC 33.6 g/dL (32-36) 10/06/21 RDW Standard Deviation 46.5 fL (36.4-46.3) H 10/06/21 RDW Coefficient of Variation 14.0 % (11.5-14.5) 10/06/21 Plt Count 201 K/uL (130-400) 10/06/21 MPV 11.2 fL (7.4-10.4) H 10/06/21 Nucleated Red Blood Cells % (auto) 0.2 % 10/06/21 Nucleated RBC Absolute Count (auto) 0.12 K/uL (0-0) H 10/06/21 Na 135 mmol/L (136-145) L 10/06/21 K 4.9 mmol/L (3.5-5.1) 10/06/21 Cl 101 mmol/L (98-107) 10/06/21 CO2 24 mmol/L (21-32) 10/06/21 Anion Gap 10 (3-11) 10/06/21 BUN 81 mg/dl (6-23) H 10/06/21 Creatinine 3.28 mg/dl (0.6-1.2) H 10/06/21 Estimated GFR ( Amer) 16.4 ml/min 10/06/21 Estimated GFR (Non-Af Amer) 14.2 ml/min 10/06/21 BUN/Creatinine Ratio 24.7 (10-20) H 10/06/21 Glu 143 mg/dl (70-99(Fasting)) H 10/06/21 Ca 6.2 mg/dl (8.5-10.1) L 10/06/21 Phosphorus Level 7.3 mg/dl (2.5-4.9) H 10/06/21 Total Bilirubin 0.7 mg/dl (0.2-1.0) 10/06/21 AST 1807 U/L (13-39) H 10/06/21 ALT 850 U/L (7-52) H 10/06/21 Alkaline Phosphatase 158 U/L (34-104) H 10/06/21 TP 4.6 gm/dl (6.0-8.3) L 10/06/21 Albumin 2.0 gm/dl (3.4-5.0) L 10/06/21 Globulin 2.6 gm/dl (2.5-4.0) 10/06/21 Albumin/Globulin Ratio 0.8 (0.9-2) L 10/06/21 Mg 2.3 mg/dl (1.7-2.4) 10/06/21 05:51 10/06/21 Calcium Level 6.2 mg/dl (8.5-10.1) L 10/06/21 05:51 10/06/21 Prothromb Time International Ratio 1.5 (0.9-1.1) H 10/06/21 05:51 10/06/21 Microbiology 10/04/21 18:36 Aerobic Blood Culture - Preliminary Blood No growth in Aerobic bottle after 24 hours. Anaerobic Blood Culture - Final 10/04/21 18:08 Aerobic Blood Culture - Preliminary Blood No growth in Aerobic bottle after 24 hours. Anaerobic Blood Culture - Preliminary No growth in Anaerobic bottle after 24 hours. I & O Totals 24 Hours 10/05/21 10/06/21 10/07/21 06:59 06:59 06:59 Intake Total 4432.681 / 4432.681 3815.534 / 3815.534 48 / 48 Output Total 725 / 725 871 / 871 Balance 3707.681 / 3707.681 2944.534 / 2944.534 48 / 48 Cumulative 10/01/21 12:37 thru 10/06/21 07:03 Intake Total 21493.215 Output Total 4124 Balance 48527.215 RT Ventilator Mngmt (Last Documented) Ventilator Ordered Settings Ventilator Support Mode CPAP 10/05/21 16:00 Respiratory Rate 17 10/06/21 06:15 Ventilator Tidal Volume 400 10/05/21 08:00 Setting Minute Ventilation 6.3 10/05/21 10:40 Ventilator Positive Pressure 16 10/05/21 16:00 Support Setting Positive End Expiratory 8 10/05/21 16:00 Pressure Fraction of Inspired Oxygen 45 10/06/21 04:05 Peak Inspiratory Flow 30 10/05/21 07:15 Machine Comment weaned to 30% 10/05/21 10:40 Ventilator - PT Measurements Respiratory Rate 17 Exhaled Tidal Volume 554 Minute Ventilation 6.3 Peak Inspiratory Airway 16 Pressure Plateau Pressure 12.7 Respiratory Cycle Inspiratory: 1:3.7 Expiratory Ratio Inspiratory Phase Time 0.95 End-Tidal CO2 29 Static Lung Compliance 71.95 Dynamic Lung Compliance 50.36 Normal Static Lung Compliance 49.00 Patient Measurements Comment extubated patient to bipap Resident Activity Tracking Resident Involvement: Resident Care Provided Care Provided: Adult Hospital Medicine (1) UTI (urinary tract infection) Hematuria presence: without hematuria Urinary tract infection type: acute cystitis Qualified Code(s): N30.00 - Acute cystitis without hematuria
--- NOTE | 2021-10-06 08:05 | Billing Data ---
Date of Service October 06, 2021 Coding Level of Care Code Critical Care 1st - mins
[2021-10-06] MEDS: FLUTICASONE/VILANTEROL 200/25MCG 14 PUFFS/INHALER INH SCH (08:17)
[2021-10-06] MEDS: UMECLIDINIUM BROMIDE 62.5MCG/BLISTER 7 PUFFS/INHALER INH SCH (08:20)
[2021-10-06] MEDS: INSULIN GLARGINE SOLOSTAR 100 UNITS/ML 3 ML PEN SC SCH (08:21)
[2021-10-06] MEDS: PANTOprazole 40 MG in SYRINGE 0 ML IV SCH (08:23)
[2021-10-06] MEDS: NICOTINE 21 MG/24 HR TDSY TD SCH (08:56)
[2021-10-06 09:45] VITALS: TEMP 100.2
[2021-10-06] MEDS ORDERED: MoRPHine SULFATE 2 MG/ML CARP IV PRN (10:00)
[2021-10-06] MEDS ORDERED: LORazepam 0.5 MG TAB PO PRN (10:00)
[2021-10-06] MEDS ORDERED: LORazepam 0.5 MG/1 ML VIAL IV PRN (10:00)
--- NOTE | 2021-10-06 11:45 | Hospitalist Progress Note ---
Date of Service October 06, 2021 Assessment & Plan (1) Colitis: (2) UTI (urinary tract infection): (3) Abdominal pain: Plan: Fulminant C. 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 Pericolonic inflammatory changes are present in the findings are characteristic of an infectious versus inflammatory colitis. Pt was recently discharged on antibiotics for UTI, was having diarrhea for 3-4 days prior to presentation which stopped on the day of arrival Was on empirical po vancomycin due to recent antibiotics use due to concern for c diff Initially had no BM after admission On 10/03/21, patient had abd distention, worsening leukocytosis and renal function. Repeat scan showed worsening pancolitis. BM on 10/03/21 confirmed c diff infection Had subtotal colectomy with ileostomy Extubated yesterday Now comfort measures only per family's conversation with ICU team Sisters and granddaughters were in the room and I answered all their questions UTI: Got antibiotics Urine culture 09/27/21 + Klebsiella Mild hyponatremia Acute on Chronic CKD 3 baseline cr ~ 1.4-1.6 Cr is 3.28 today Atrial fibrillation: Diastolic CHF, chronic: Chronic cor pulmonale: Hypertension: PO cardizem, digoxin and metoprolol currently held Currently on [employer] Chronic respiratory failure with hypoxia, on home oxygen therapy: Chronic obstructive pulmonary disease: Uses 2L chronically, smokes half pack per day x42 years Negative COVID on admission DM type 2 (diabetes mellitus, type 2): Transaminitis Currently on Comfort measures only Poor prognosis. Admission and Anticipated Discharge Date Admission Date: October 01, 2021 Subjective 65-year-old female with hx of A. fib on Eliquis, chronic diastolic CHF, Hypertension, status post mitral valve repair in 2004, chronic cor pulmonale, chronic hyponatremia, COPD (current smoker, 1/2 PPD since 42 yrs), CKD stage III, hypothyroidism, history of DVT in left hand and left leg, DM type II, bipolar, depression, anxiety, COVID infection in September 2020 who presented on 10/01/21 with worsening lower belly pain and diarrhea for 3-4 days. Found to have C diff pancolitis On 10/03/21, patient was noted to have abd distention, worsening leukocytosis and renal function. Repeat scan showed worsening pancolitis/distention. S/p subtotal colectomy with ileostomy on 10/04/21 for toxic megacolon/fulminant c diff Extubated yesterday. However, due to declining clinical status, family opted for comfort measures only after GOC discussion with ICU Patient seen and examined this morning. Currently unconscious on BIPAP. Family in room Review of Systems Review of Systems: Unobtainable due to reduced consciousness Physical Exam Constitutional: no acute distress Unconsicous ENMT: BIPAP in place Respiratory: CTA b/l Cardiovascular: Rate/Rhythm: regular rate and regular rhythm S1 S2 Gastrointestinal (Abdomen): Dressing over surgical site Ileostomy in situ Neurologic: Unconscious. Limited exam Genitourinary: Sinclair in situ Results & Data Results & Data ([facility]) Vital Signs (Past 12 Hours) Vital Signs Temp Pulse Resp Pulse Ox 10/06/21 09:00 37.9 C H 73 16 95 10/06/21 08:00 38.1 C H 64 16 94 10/06/21 07:00 37.8 C H 79 16 93 10/06/21 06:15 77 17 91 10/06/21 06:00 76 16 93 10/06/21 05:45 75 16 92 10/06/21 05:30 74 15 93 10/06/21 05:15 73 14 92 10/06/21 05:00 74 16 96 10/06/21 04:45 74 15 93 10/06/21 04:30 37.2 C 74 16 94 10/06/21 04:15 76 17 94 10/06/21 04:05 93 H 26 H 91 10/06/21 04:00 76 16 10/06/21 03:45 77 15 94 10/06/21 03:30 79 16 93 10/06/21 03:15 79 0 L 94 10/06/21 03:00 81 15 94 10/06/21 02:45 81 12 94 10/06/21 02:30 81 12 94 10/06/21 02:15 37.2 C 80 15 92 10/06/21 02:00 81 13 92 10/06/21 01:00 38.1 C H 78 13 91 10/06/21 00:00 73 15 Laboratory Results Abnormal lab results 10/05/21 10/05/21 10/06/21 Range/Units 15:13 21:05 01:04 WBC (4.8-10.8) K/uL RDW Std Deviation (36.4-46.3) fL MPV (7.4-10.4) fL Absolute Nucleated RBC (0-0) K/uL PT (9.0-12.0) Seconds INR (0.9-1.1) APTT (21.0-31.0) Seconds Sodium (136-145) mmol/L BUN (6-23) mg/dl Creatinine (0.6-1.2) mg/dl BUN/Creatinine Ratio (10-20) Glucose (70-99(Fasting)) mg/dl POC Glucose 152 H 150 H 127 H (70-99) mg/dl Calcium (8.5-10.1) mg/dl Phosphorus (2.5-4.9) mg/dl AST (13-39) U/L ALT (7-52) U/L Alkaline Phosphatase (34-104) U/L Total Protein (6.0-8.3) gm/dl Albumin (3.4-5.0) gm/dl Albumin/Globulin Ratio (0.9-2) 10/06/21 10/06/21 10/06/21 Range/Units 04:25 05:51 05:51 WBC 50.57 H* (4.8-10.8) K/uL RDW Std Deviation 46.5 H (36.4-46.3) fL MPV 11.2 H (7.4-10.4) fL Absolute Nucleated RBC 0.12 H (0-0) K/uL PT 14.8 H (9.0-12.0) Seconds INR 1.5 H (0.9-1.1) APTT 40.2 H (21.0-31.0) Seconds Sodium (136-145) mmol/L BUN (6-23) mg/dl Creatinine (0.6-1.2) mg/dl BUN/Creatinine Ratio (10-20) Glucose (70-99(Fasting)) mg/dl POC Glucose 135 H (70-99) mg/dl Calcium (8.5-10.1) mg/dl Phosphorus (2.5-4.9) mg/dl AST (13-39) U/L ALT (7-52) U/L Alkaline Phosphatase (34-104) U/L Total Protein (6.0-8.3) gm/dl Albumin (3.4-5.0) gm/dl Albumin/Globulin Ratio (0.9-2) 10/06/21 10/06/21 Range/Units 05:51 07:02 WBC (4.8-10.8) K/uL RDW Std Deviation (36.4-46.3) fL MPV (7.4-10.4) fL Absolute Nucleated RBC (0-0) K/uL PT (9.0-12.0) Seconds INR (0.9-1.1) APTT (21.0-31.0) Seconds Sodium 135 L (136-145) mmol/L BUN 81 H (6-23) mg/dl Creatinine 3.28 H (0.6-1.2) mg/dl BUN/Creatinine Ratio 24.7 H (10-20) Glucose 143 H (70-99(Fasting)) mg/dl POC Glucose 140 H (70-99) mg/dl Calcium 6.2 L (8.5-10.1) mg/dl Phosphorus 7.3 H (2.5-4.9) mg/dl AST 1807 H (13-39) U/L ALT 850 H (7-52) U/L Alkaline Phosphatase 158 H (34-104) U/L Total Protein 4.6 L (6.0-8.3) gm/dl Albumin 2.0 L (3.4-5.0) gm/dl Albumin/Globulin Ratio 0.8 L (0.9-2) (1) UTI (urinary tract infection) Hematuria presence: without hematuria Urinary tract infection type: acute cystitis Qualified Code(s): N30.00 - Acute cystitis without hematuria (2) Abdominal pain Abdominal location: lower abdomen, unspecified Qualified Code(s): R10.30 - Lower abdominal pain, unspecified
--- NOTE | 2021-10-06 11:55 | Surgery Progress Note ---
Date of Service October 06, 2021 Assessment & Plan (1) C. difficile colitis: Plan: Comfort measures Poor prognosis Plan: Comfort measures Poor prognosis Admission and Anticipated Discharge Date Admission Date: October 01, 2021 Subjective Patient extubated with DNI/DNR wishes Not responding to commands Comfort measures per family Physical Exam Gastrointestinal (Abdomen): Percussion/Palpation: abdomen nontender ileostomy dusky but viable with some bloody drainage Results & Data ([facility]) Vital Signs (Past 12 Hours) Vital Signs Temp Pulse Resp Pulse Ox 10/06/21 09:00 37.9 C H 73 16 95 10/06/21 08:00 38.1 C H 64 16 94 10/06/21 07:00 37.8 C H 79 16 93 10/06/21 06:15 77 17 91 10/06/21 06:00 76 16 93 10/06/21 05:45 75 16 92 10/06/21 05:30 74 15 93 10/06/21 05:15 73 14 92 10/06/21 05:00 74 16 96 10/06/21 04:45 74 15 93 10/06/21 04:30 37.2 C 74 16 94 10/06/21 04:15 76 17 94 10/06/21 04:05 93 H 26 H 91 10/06/21 04:00 76 16 10/06/21 03:45 77 15 94 10/06/21 03:30 79 16 93 10/06/21 03:15 79 0 L 94 10/06/21 03:00 81 15 94 10/06/21 02:45 81 12 94 10/06/21 02:30 81 12 94 10/06/21 02:15 37.2 C 80 15 92 10/06/21 02:00 81 13 92 10/06/21 01:00 38.1 C H 78 13 91 10/06/21 00:00 73 15
[2021-10-06 12:23] VITALS: PULSE 60; O2SAT 91
--- NOTE | 2021-10-06 12:31 | Communication Note ---
Date of Service: October 06, 2021 clinical worsening from pulmonary standpoint. Discussed with family goals and wishes for re-intubation. All felt it was her explicit wishes to not be r eintubated. Given multiple co-morbidities, I agree this is unlikely to be significant benefit to allow patient have significant full recovery and agree with transition to comfort measures. Discontinue vasoactive medications. Keeping NIMV until additional family able to come to bedside. Coding Level of Care Code None
--- NOTE | 2021-10-06 14:47 | Death Pronouncement Note ---
Date of Service October 06, 2021 Pronouncement Note Admission Date Admission Date: October 01, 2021 Date and Time of Date of : 10/06/21 Time of : 14:16 PCOD Preliminary cause of : Sepsis Contributing Factors (1) Colitis: (2) UTI (urinary tract infection): (3) Acute on chronic renal failure: (4) C. difficile colitis: (5) Acute on chronic diastolic CHF (congestive heart failure): (6) Acute and chronic respiratory failure with hypoxia: Additional Data Confirmation of : no pulse, no respirations, no heart sounds and pupils fixed and dilated Family: at bedside Attending/PCP notified?: Yes Attending physician: Asha Glynn MD Was code activated?: No Coding Level of Care Code None Diagnoses Colitis K52.9 UTI (urinary tract infection) N30.00 Hematuria presence: without hematuria Urinary tract infection type: acute cystitis Acute on chronic renal failure N17.9; N18.9 C. difficile colitis A04.72 Acute on chronic diastolic CHF (congestive heart failure) I50.33 Acute and chronic respiratory failure with hypoxia J96.21
--- NOTE | 2021-10-06 15:53 | Discharge Summary ---
Date of Service October 06, 2021 Admission HPI Per Admitting Provider This is a 65-year-old female with PMHx of A. fib on Eliquis, chronic diastolic CHF, HTN, HLD, status post mitral valve repair in 2004, chronic cor pulmonale, chronic hyponatremia, COPD (current smoker) CKD stage III, hypothyroidism, history of DVT in left hand and left leg, DM type II, bipolar, depression, anxiety, and history of COVID infection in September 2020. She was present in the ER on Friday, 09/29 where she was diagnosed with a UTI due to a positive UA and was placed on cefdinir. Since then she reports improvement of her urinary symptoms with frequency and burning however notes that there is increased abdominal pain, increased weakness and decreased appetite. She reports having diarrhea te last few days and currently having lower abdominal pain. Pt also admits to having a low grade fever of 99.3 yesterday. She is taking the antibiotics as directed for UTI.. She has noticed worsening smells with her bowels these past few days. Urology follows Dr. Zaidi as outpatient for urinary retention and previously needed to prn straight cath, but none recently. Chronically she wears 2 L O2, and smokes 1/2 ppd x 42 years. Denies alcohol use. Denies any illicit drug use. Today CT abdomen was completed and shows possible infectious versus inflammatory colitis, and was placed on IV cefepime by ER. Her lactic acid was elevated at 2.4. WBC elevated at 27 K and LA was 2.7 on admission. Negative COVID screen on admission. Admission Exam Per Admitting Provider General: awake, alert, no apparent distress, appears older than stated age, chronically ill Head: Normocephalic, atraumatic ENT: PERRL, EOMI, no pharyngeal exudate, mucous membranes dry Chest: Coarse breath sounds throughout, on 2 L via NC, no wheeze Cardiac: Regular rate and rhythm, no murmur, no JVD, normal peripheral pulses, good capillary refill Abdominal: NABS x 4 quadrants, soft, +distended, + tender to palpation in RLQ and LLQ, no rebound or guarding Extremities: Normal inspection, no peripheral edema or erythema, calfs nontender to palpation Psych: Normal mood and affect Neuro: AAO x 3, strength intact bilaterally and rated 5/5, no motor deficits, speech is clear, no peripheral sensory deficits Principal Diagnosis Sepsis 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 [id number] on CKD Discharge Exam Patient Discharge Data Allergies Allergy/AdvReac Type Severity Reaction Status Date / Time bee venom protein (honey bee) Allergy Severe Anaphylaxis Verified 10/01/21 13:56 lisinopril Allergy Severe ANGIOEDEMA, Verified 10/01/21 13:56 FACIAL CELLULITIS, RASH strawberry Allergy Severe LIPS, Verified 10/01/21 13:56 TONGUE, FACE SWELLS alprazolam Allergy Intermediate RED FACE, Verified 10/01/21 13:56 FACE SWELLING alendronate sodium Allergy Unknown ON [facility] MED Verified 10/01/21 13:56 LIST colesevelam AdvReac Intermediate Abdominal Verified 10/01/21 13:56 Pain lactose AdvReac Intermediate VOMTING Verified 10/01/21 13:56 DIARRHEA ABDOMINAL PAIN-LACTOSE INTOLERANCE lithium AdvReac Intermediate jitters Verified 10/01/21 13:56 metronidazole AdvReac Intermediate ABD PAIN, Verified 10/01/21 13:56 WEAKNESS, NAUSEA, VOMITING prednisone AdvReac Mild AGGRESSIVE Verified 10/01/21 13:56 BEHAVIOR Consultations 10/01/21 17:00 ED Decision to Admit Stat 10/01/21 18:16 Consult Gastroenterology Routine 10/03/21 14:05 Consult General Surgery Routine 10/04/21 08:00 Consult Cardiology Routine Consult Nephrology Routine 10/04/21 14:36 Consult Finisher Card Tender Routine 10/06/21 10:01 Consult Palliative Care Routine Procedures Performed Operation Date: 10/04/21 08:20 Actual Procedures p Exploratory Laparotomy, Lysis of Adhesions Sub total colectomy and ileostomy(Not Applicable) - Wil Ness DO Ordered Studies 10/01/21 13:05 CT abd pelvis wo con Stat 10/03/21 11:59 CT abd pelvis wo con Stat 10/04/21 11:27 US - OR guided needle placemen Routine Hospital Course (1) Colitis: (2) UTI (urinary tract infection): (3) Abdominal pain: Fulminant C. 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 Pericolonic inflammatory changes are present in the findings are characteristic of an infectious versus inflammatory colitis. Pt was recently discharged on antibiotics for UTI, was having diarrhea for 3-4 days prior to presentation which stopped on the day of arrival Was on empirical po vancomycin due to recent antibiotics use due to concern for c diff Initially had no BM after admission On 10/03/21, patient had abd distention, worsening leukocytosis and renal function. Repeat scan showed worsening pancolitis. BM on 10/03/21 confirmed c diff infection Was on po vancomycin, OK vancomycin and iv flagyl Patient's clinical status worsened with altered mental status, worsening leukocytosis and renal function. Had subtotal colectomy with ileostomy Was moved to ICU after surgery. Extubated yesterday However, clinical status continued to worsen and patient's family decided to transition to comfort care. Patient at 2:16pm on 10/06/21 Total Time Total Time Spent Total Time Spent (In Minutes): 35 Total Time Includes: Other Discharge Plan Discharge Items Patient Disposition: Other Date/Time: 10/06/21 14:16
== END 2021-10-06 15:45 | disposition expired | DRG 329 ==
LOC: ED 12:48 → 3W 17:14 → SUATTDRO 17:14 → 3W 20:23 → 2S 10-03 21:36 → 1E 10-04 14:39
DX: Z79.01 Long term (current) use of anticoagulants; E87.2 Acidosis; I27.29 Other secondary pulmonary hypertension; Z79.4 Long term (current) use of insulin; I50.33 Acute on chronic diastolic (congestive) heart failure; Z88.8 Allergy status to other drugs, medicaments and biological substances; R18.8 Other ascites; N17.9 Acute kidney failure, unspecified; Z51.5 Encounter for palliative care; N18.30 Chronic kidney disease, stage 3 unspecified; E11.22 Type 2 diabetes mellitus with diabetic chronic kidney disease; Z83.3 Family history of diabetes mellitus; A04.72 Enterocolitis due to Clostridium difficile, not specified as recurrent; J96.11 Chronic respiratory failure with hypoxia; I45.10 Unspecified right bundle-branch block; I50.812 Chronic right heart failure; A41.9 Sepsis, unspecified organism; E03.9 Hypothyroidism, unspecified; Z83.79 Family history of other diseases of the digestive system; I47.1 Supraventricular tachycardia; N39.0 Urinary tract infection, site not specified; K51.00 Ulcerative (chronic) pancolitis without complications; I13.0 Hypertensive heart and chronic kidney disease with heart failure and stage 1 through stage 4 chronic kidney disease, or unspecified chronic kidney disease; K56.7 Ileus, unspecified; J44.9 Chronic obstructive pulmonary disease, unspecified; K51.90 Ulcerative colitis, unspecified, without complications; Z95.0 Presence of cardiac pacemaker; E83.42 Hypomagnesemia; Z66 Do not resuscitate; I48.91 Unspecified atrial fibrillation; E87.1 Hypo-osmolality and hyponatremia; F17.210 Nicotine dependence, cigarettes, uncomplicated